=== PATIENT | male | born 1945 | race Caucasian/White ===

== ENCOUNTER 2020-02-08 15:00 | Outpatient (RCR) | payer MEDICARE, SELFPAY ==
[2019-12-02 11:31] VITALS: PULSE 58
--- NOTE | 2019-12-15 13:42 | PCCPR ---
Absent today, Bruce left message saying that he was more SOB today and would not be able to exercise.
--- NOTE | 2020-02-15 09:39 | PCCPR ---
Program is temporarily suspended due to COVID outbreak.
--- NOTE | 2020-02-29 09:47 | PCCPR ---
Spoke with Bruce who states he has been walking some and getting outdoors. States he is doing well. He had not checked his email regarding the home exercise guidelines that were sent. Asked him to check and call us back if he had not received them. Will follow up with him next week.
--- NOTE | 2020-03-07 11:05 | PCCPR ---
Check in completed with patient. Some activity but nothing consistent. No questions or concerns at this time. Will continue to follow weekly.
--- NOTE | 2020-03-14 13:43 | PCCPR ---
Weekly update call-Left message.
--- NOTE | 2020-03-21 13:52 | PCCPR ---
Weekly update call-Left message informing patient of continued closure through the month of March due to the extension of the senior living in place order.
--- NOTE | 2020-04-05 12:58 | PCCPR ---
Starting Bi-Weekly Calls. Have spoken with Bruce several times in regards to a bill he received. Helped him as much as I could-also encouraged him to call [facility] and his insurance. No other questions or concerns in regards to his health at this time.
--- NOTE | 2020-04-19 13:24 | PCCPR ---
Spoke with Bruce on biweekly call. Stated he spoke with his insurance who said he was paid up. He is going to wait to see if insurance will catch up. He did ask when he was going to open up. Explained we have a mtg nest week to discuss it. We will let him know tanner a plan to open.States he has heard other rehabs have opened.
--- NOTE | 2020-06-18 18:24 | PCCPR ---
Spoke with Bruce today. States he is having his second cataract eye surgery this 06/21. He hopes to return to rehab next week. Reminded him of needing a release to resume.
--- NOTE | 2020-06-29 13:18 | PCCPR ---
Spoke with Bruce today regarding his return to Cardiac rehab. Bruce stated that his left eye is swollen and he has an appointment today with the eye doctor. I informed him that if he is able to return next week that we would need a release and that if he is not able to return to notify us as soon as possible.
--- NOTE | 2020-07-09 15:38 | PCCPR ---
Bruce has not returned from eye surgery. Called him today and his eye is still swollen and he is unable to exercise. Bruce request that we discharge him from the program.
== END 2020-02-08 23:59 | disposition home or self-care (01) ==
LOC: ANHCPREHAB 15:00
PROVIDERS: PCP Family Medicine Adolescent Medicine; Visit Provider Nurse Practitioner Adult Health
DX: Z95.5 Presence of coronary angioplasty implant and graft (principal); I25.2 Old myocardial infarction
CPT/HCPCS: 93798

== ENCOUNTER 2020-05-30 15:00 | Outpatient (RCR) | payer MEDICARE, SELFPAY | END 2020-07-09 15:38 | disposition home or self-care (01) | LOC: ANHCPREHAB 15:00 | PROVIDERS: PCP Family Medicine Adolescent Medicine; Visit Provider Nurse Practitioner Adult Health | DX: Z95.5 Presence of coronary angioplasty implant and graft (principal); I25.2 Old myocardial infarction | CPT/HCPCS: 93798 ==

== ENCOUNTER → 2020-08-21 11:06 | Outpatient (CLI) | payer MEDICARE, SELFPAY ==
--- NOTE | ~2020-08-21 | XR_ITS ---
XR chest 2V DATE: 08/21/2020 11:32 INDICATION: Shortness of breath, hoarseness TECHNIQUE: PA and lateral views COMPARISON: 09/16/2019 2 view chest FINDINGS: There is bilateral hyperinflation. No pulmonary infiltrate or consolidation, pleural effusi on or pulmonary vascular congestion or pneumothorax. Normal heart size. Mild aortic unfolding. No hilar or mediastinal mass lesion or lymphadenopathy is s uggested. Diffuse idiopathic skeletal hyperostosis of the thoracic spine. IMPRESSION: Bilateral hyperinflation No active cardiac pulmonary disease or significant change since 09/16/2019 Diffuse idiopathic skeletal hyperostosis of the thoracic spine Reviewed, dictated and finalized at location B.
== END ==
PROVIDERS: PCP Family Medicine Adolescent Medicine; Visit Provider Physician Assistant
DX: R06.02 Shortness of breath (principal); R91.8 Other nonspecific abnormal finding of lung field
CPT/HCPCS: 71046

== ENCOUNTER 2021-08-02 09:22 | Observation (INO) | payer MEDICARE, SELFPAY ==
[2021-08-02] VITALS (15 sets, daily range): BP systolic 93–146; BP diastolic 46–72; PULSE 61–98; RESP 14–22; TEMP 36.1–39.4; O2SAT 89–96; BMI 27.7
--- NOTE | ~2021-08-02 | XR_ITS ---
EXAMINATION: XR chest 1V portable INDICATION: Shortness of breath TECHNIQUE: Portable AP chest at 0937 hours COMPARISON: 08/21/2020 FINDINGS: There are airspace opacities of the lung bases and left midlung zone. No pleural effusion o r pneumothorax is identified. The cardiomediastinal silhouette is normal. 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 IMPRESSION: 1. Airspace opacities of the lung bases and left midlung zone, consistent with atelectasis versus pne umonia. Reviewed, dictated and finalized at location B. IMPRESSION: 1. Airspace opacities of the lung bases and left midlung zone, consistent with atelectasis versus pneumonia.
--- NOTE | 2021-08-02 10:00 | ECG_ITS ---
Measurements Intervals [place] Rate: 92 P: 43 KS: 158 QRS: -66 QRSD: 122 T: 36 QT: 382 QTc: 473 Interpretive Statements SINUS RHYTHM LEFT AXIS DEVIATION RIGHT BUNDLE BRANCH BLOCK CONSIDER INFERIOR INFARCT, AGE INDETERMINATE BASELINE ARTIFACT- II, AVR, AVL, AVF, V2-V6 ABNORMAL ECG Electronically Signed On 08-02-2021 11:08:30 CDT by Tim Mary D.O.
[2021-08-02 10:12] LABS: Basophils Percent Auto 0.2 % (0.2-1.2); Eosinophils Percent Auto 0.1 % (0-4.4); Hematocrit 42.1 % (42.0-52.0); Hemoglobin 14.4 g/dL (14.0-18.0); Immature Granulocyte Absolute 0.05 K/mm3 (0.00-0.031); Immature Granulocyte Percent A 0.4 % (0-0.5); Lymphocytes Percent Auto 4.6 % (18.3-44.2); Mean Corpuscular HGB Conc 34.2 g/dl (32-36); Mean Corpuscular Hemoglobin 34.3 pg (26-34); Mean Corpuscular Volume 100.2 fl (80-100); Mean Platelet Volume 10.9 fl (7.4-10.4); Monocytes Absolute Auto 0.6 K/mm3 (0.1-0.6); Monocytes Percent Auto 4.9 % (2.6-8.5); Neutrophils Absolute Auto 11.8 K/mm3 (1.3-6.7); Neutrophils Percent Auto 89.8 % (45.5-73.1); Platelet Count Result 163 k/mm3 (150-375); Red Cell Distribution Width 11.9 % (11.5-14.5); White Blood Count 13.1 K/mm3 (4.5-10.0)
[2021-08-02 10:24] LABS: Anion Gap 8 mmol/L (8-16); Blood Urea Nitrogen 21 mg/dL (9-20); Calcium 9.1 mg/dL (8.4-10.2); Carbon Dioxide 24 mmol/L (22-30); Chloride 101 mmol/L (98-107); Estimated CRCL calculation 53 ml/min; Estimated Glomerular Filt Rate > 60; Glucose 109 mg/dL (65-110); Potassium 4.4 mmol/L (3.4-5.0); Sodium 133 mmol/L (137-145)
--- NOTE | 2021-08-02 12:40 | PC.NURSE ---
Patient was assisted up to ambulate with pulse oximeter. He was noted to patient's saturation decreased to 84% on room air while ambulating. EDP was made aware.
--- NOTE | 2021-08-02 12:49 | ED.GENADULT ---
HPI - General Adult General Chief complaint: Unspecified Stated complaint: 103 fever, weakness, sob Time Seen by Provider: 08/02/21 11:57 History of Present Illness HPI narrative: Patient is a 76-year-old male who presents ER with fever and fatigue. Reports he was first noted to have fever yesterday when he was at Dr. Jose. He had seen GI because he has been struggling with constipation and diarrhea. He was started on Linzess. While he is at GI he was noted to have a temperature of 101 ?F. Reports this morning his temperature was 103 ?F. No runny nose or sore throat or productive cough. Denies shortness of breath but has known COPD for which she does not wear oxygen. He has been having body aches for 2 days. No known sick contacts. He has been fully vaccinated against COVID-19. No loss of taste or smell. Related Data Home Medications Medication Instructions Recorded Confirmed albuterol sulfate [ProAir HFA] 2 puff INHALATION QID PRN 12/02/19 08/02/21 aspirin [Aspir-81] 81 mg PO DAILY 12/02/19 08/02/21 atorvastatin 80 mg PO HS 12/02/19 08/02/21 budesonide-formoterol [Symbicort] 2 puff INHALATION Q12H 12/02/19 08/02/21 bupropion HCl 150 mg PO BID 12/02/19 08/02/21 carvedilol [Coreg] 12.5 mg PO BID 12/02/19 08/02/21 docusate sodium 100 mg PO BID 12/02/19 08/02/21 esomeprazole magnesium [Nexium 40 mg PO DAILY 12/02/19 08/02/21 24HR] finasteride 5 mg PO DAILY 12/02/19 08/02/21 guaifenesin [Mucinex] 1,200 mg PO BID 12/02/19 08/02/21 losartan 50 mg PO DAILY 12/02/19 08/02/21 morphine [MS Contin] 60 mg PO Q12H 12/02/19 08/02/21 omega 1-qmg-kdh-fish oil [Fish Oil] 1 cap PO DAILY 12/02/19 08/02/21 sertraline [Zoloft] 50 mg PO DAILY 12/02/19 08/02/21 tamsulosin 0.4 mg PO DAILY 12/02/19 08/02/21 ticagrelor [Brilinta] 90 mg PO Q12H 12/02/19 08/02/21 tiotropium bromide [Spiriva 2 puff INHALATION DAILY 12/02/19 08/02/21 Respimat] trazodone 100 mg PO HS 12/02/19 08/02/21 acetaminophen [Tylenol] 650 mg PO ONCE PRN 08/02/21 08/02/21 nitroglycerin 0.4 mg SUBLINGUAL Q5M PRN 08/02/21 08/02/21 polyethylene glycol 3350 [Miralax] 17 g PO DAILY PRN 08/02/21 08/02/21 sulindac 200 mg BYMOUTH BID 08/02/21 08/02/21 Allergies Allergy/AdvReac Type Severity Reaction Status Date / Time No Known Allergies Allergy Unknown Verified 08/02/21 18:34 Review of Systems Review of Systems: All systems reviewed & are unremarkable except as noted in HPI and below Constitutional: Constitutional: Reports chills, Reports fatigue and Reports fever(s) ENT: Denies sinus pressure and Denies sore throat Cardiovascular: Cardiovascular: Denies chest pain, Denies syncope and Denies palpitations Respiratory: Respiratory: Denies cough, Denies dyspnea and Denies wheezing Gastrointestinal: Gastrointestinal: Denies abdominal pain, Reports constipation, Reports diarrhea, Denies nausea and Denies vomiting PMFSH Past Medical History Medical History (Updated 08/02/21 @ 23:15 by Castro Dickerson MD) BPH (benign prostatic hyperplasia) CHF (congestive heart failure), NYHA class I COPD (chronic obstructive pulmonary disease) Encounter for screening colonoscopy GERD (gastroesophageal reflux disease) HTN (hypertension) Surgical History Surgical History (Updated 08/02/21 @ 17:49 by Elenita Reinoso NP) H/O rotator cuff surgery History of colon resection History of coronary artery stent placement X2 History of mandibular surgery 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 Bone removed from right hip for reconstructive surgery S/P tonsillectomy and adenoidectomy Family History Family History Other No problems noted. Mother Diabetes mellitus Father COPD (chronic obstructive pulmonary disease) Colon cancer Sibling Colon cancer Lung cancer Acute myocardial infarction COPD (chronic obstructive pulmonary disease) Sibling COPD (chronic obstructive pulmonary disease) Sibling
[2021-08-02 14:09] LABS: EDCOVIDSCREEN Negative (Negative)
[2021-08-02] MEDS: SODIUM CHLORIDE 0.9% IV 1,000 ML 999 ML IV CONT (15:11)
[2021-08-02] MEDS: ACETAMINOPHEN 325 MG TABLET 650 MG PO (15:54)
[2021-08-02] MEDS: SODIUM CHLORIDE 0.9% IV 1,000 ML 125 ML IV CONT (15:55)
[2021-08-02 17:00] LABS: Lactic Acid Reflex 0.8 mmol/L (0.7-2.1)
--- NOTE | 2021-08-02 17:38 | PM.IMHP ---
H&P: HPI History of Present Illness Date/Time: 08/02/21 17:38 this is a 76-year-old male patient has a past medical history of coronary artery disease with 2 cardiac stents, CHF and COPD. The patient presented to the emergency room with a 103 fever today. Patient stated he is so short of breath and was has a cough. The patient was noted to have a fever of [address] rosales yesterday. The patient has been dealing with bouts of constipation with bouts of diarrhea and was started on Linzess to yesterday. The patient has been fully vaccinated for COVID-19. Rapid COVID test in the emergency room was found to be negative. His white count was noted to be 13.1. Neutrophil percentage 89.8. Chest x-ray was read as airspace opacities in lung bases and left mid lung zones, consistent with atelectasis versus pneumonia. The patient was given 1 L of IV fluids and started on azithromycin and Rocephin. The patient is being admitted to observation status on the date of service 08/02/2021 Chief Complaint: Fever Review of Systems Review of Systems: All systems reviewed & are unremarkable except as noted in HPI and below Constitutional: Constitutional: Reports as per HPI and Reports no additional constitutional complaints Eyes: Eyes: Reports as per HPI and Reports no additional eye complaints ENT: Reports system reviewed and no additional complaints, except as documented and Reports Normal hearing present Cardiovascular: Cardiovascular: Reports no additional cardiovascular complaints Respiratory: Respiratory: Reports no additional respiratory complaints and Reports no additional respiratory complaints Gastrointestinal: Gastrointestinal: Reports as per HPI and Reports no additional gastrointestinal complaints Musculoskeletal: Musculoskeletal: Reports no additional musculoskeletal complaints Integumentary/Breasts: Skin/Breast: Reports system reviewed and no additional complaints, except as docu and Reports as per HPI Neurologic: Reports system reviewed and no additional complaints, except as documented, Reports as per HPI and Reports Normal hearing present Psychiatric: Psychiatric: Reports no additional psychiatric complaints and Reports as per HPI Endocrine: Endocrine: Reports no additional endocrine complaints Hematologic/Lymphatic: Hematologic/Lymphatic: Reports no additional hematologic/lymphatic complaints Allergic/Immunologic: Allergic/Immunologic: Reports no additional allergic/immunologic complaints [facility] Past Medical History Medical History (Updated 08/02/21 @ 17:49 by Elenita Reinoso NP) BPH (benign prostatic hyperplasia) CHF (congestive heart failure), NYHA class I COPD (chronic obstructive pulmonary disease) Encounter for screening colonoscopy GERD (gastroesophageal reflux disease) HTN (hypertension) Surgical History Surgical History (Updated 08/02/21 @ 17:49 by Elenita Reinoso NP) H/O rotator cuff surgery History of colon resection History of coronary artery stent placement X2 History of mandibular surgery 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 Bone removed from right hip for reconstructive surgery S/P tonsillectomy and adenoidectomy Family History Family History Other No problems noted. Mother Diabetes mellitus Father COPD (chronic obstructive pulmonary disease) Colon cancer Sibling Colon cancer Lung cancer Acute myocardial infarction COPD (chronic obstructive pulmonary disease) Sibling COPD (chronic obstructive pulmonary disease) Sibling Congestive heart failure Social History Social History (Updated 08/02/21 @ 18:02 by Elenita Reinoso NP) Social History: The patient lives with his son and swiforrh-gj-ypd. Patient is a . The patient quit smoking in 2019. He also gave up alcohol many years ago. No marijuana or illicit drugs. The patient does not have a durable power employee benefits attorney for healthcare. The
--- NOTE | 2021-08-02 18:34 | ADMGEN ---
This patient, Russell Morse, was admitted to [facility] Surg Room [id number]. Patient/family oriented to hospital policies and general routines including ID bracelet, bed and alarms, visiting hours, pain management, procedures, bathroom and other care routines, personal items, smoking policy, room service/diet, and visiting hours. Information on how to activate the Rapid Response Team has been discussed. Patient/Family are encouraged to report perceived risks to care and to ask questions if they do not understand what they are told or what they should do.
[2021-08-02] MEDS: ALBUTEROL SULFATE NEB 2.5 MG/0.5 ML INH 5 MG INHALATION (21:01)
[2021-08-02] MEDS: LEVALBUTEROL NEB 1.25 MG/3 ML 0.63 MG INHALATION (21:01)
[2021-08-02] MEDS: ATORVASTATIN 40 MG TABLET 80 MG PO (21:20)
[2021-08-02] MEDS: carvediloL 12.5 MG TABLET PO (21:20)
[2021-08-02] MEDS: guaiFENesin 12 HR 600 MG TABCR 1200 MG PO (21:20)
[2021-08-02] MEDS: traZODone HCL 50 MG TABLET 100 MG PO (22:46)
[2021-08-02] MEDS: TICAGRELOR 90 MG TABLET PO (22:46)
[2021-08-02] MEDS: MORPHINE SULFATE (*CRX) 30 MG TABCR 60 MG PO (22:56)
[2021-08-03] VITALS (14 sets, daily range): BP systolic 115–145; BP diastolic 42–63; PULSE 60–74; RESP 16–20; TEMP 36.4–37.4; O2SAT 93–94
[2021-08-03] MEDS: ALBUTEROL SULFATE NEB 2.5 MG/0.5 ML INH 5 MG INHALATION ×2 (02:43→20:44)
[2021-08-03] MEDS: LEVALBUTEROL NEB 1.25 MG/3 ML 0.63 MG INHALATION ×2 (02:43→08:35)
[2021-08-03] MEDS: SODIUM CHLORIDE 0.9% IV 1,000 ML 125 ML IV CONT (03:32)
[2021-08-03 06:24] LABS: Basophils Percent Auto 0.1 % (0.2-1.2); Eosinophils Absolute Auto 0.1 K/mm3 (0-0.3); Eosinophils Percent Auto 1.1 % (0-4.4); Hematocrit 38.9 % (42.0-52.0); Hemoglobin 12.9 g/dL (14.0-18.0); Immature Granulocyte Absolute 0.05 K/mm3 (0.00-0.031); Immature Granulocyte Percent A 0.5 % (0-0.5); Lymphocytes Absolute Auto 1.35 K/mm3 (0.9-3.2); Lymphocytes Percent Auto 14.5 % (18.3-44.2); Mean Corpuscular HGB Conc 33.2 g/dl (32-36); Mean Corpuscular Hemoglobin 33.7 pg (26-34); Mean Corpuscular Volume 101.6 fl (80-100); Mean Platelet Volume 10.5 fl (7.4-10.4); Monocytes Absolute Auto 0.9 K/mm3 (0.1-0.6); Monocytes Percent Auto 9.9 % (2.6-8.5); Neutrophils Absolute Auto 6.9 K/mm3 (1.3-6.7); Neutrophils Percent Auto 73.9 % (45.5-73.1); Platelet Count Result 156 k/mm3 (150-375); Red Blood Count 3.83 M/mm3 (4.6-6.20); Red Cell Distribution Width 11.9 % (11.5-14.5); White Blood Count 9.3 K/mm3 (4.5-10.0)
[2021-08-03 06:39] LABS: Lactic Acid Reflex 0.9 mmol/L (0.7-2.1)
[2021-08-03 06:42] LABS: Alanine Aminotransferase 22 U/L (4-50); Albumin Level 3.6 g/dL (3.5-5.1); Alkaline Phosphatase 126 U/L (38-126); Anion Gap 8 mmol/L (8-16); Aspartate Amino Transferase 28 U/L (17-59); Bilirubin,Total 0.8 mg/dL (0.2-1.3); Blood Urea Nitrogen 17 mg/dL (9-20); Calcium 8.8 mg/dL (8.4-10.2); Carbon Dioxide 26 mmol/L (22-30); Chloride 102 mmol/L (98-107); Estimated CRCL calculation 64 ml/min; Estimated Glomerular Filt Rate > 60; Glucose 102 mg/dL (65-110); Magnesium 1.8 mg/dL (1.6-2.3); Potassium 4.2 mmol/L (3.4-5.0); Sodium 136 mmol/L (137-145)
[2021-08-03 07:22] LABS: Thyroid Stimulating Hormone Reflex 0.784 uIU/mL (0.465-4.68)
--- NOTE | 2021-08-03 09:23 | PM.IMPN ---
Progress Note: A&P Assessment and Plan (1) CAP (community acquired pneumonia): Code(s): J18.9 - Pneumonia, unspecified organism Status: Acute Assessment and Plan: Continue with azithromycin and Rocephin. Continue with nebulizer treatments. Sputum cultures and blood cultures are pending. Continue with guaifenesin. The patient does have leukocytosis. Patient's T-max was 103?. Follow cultures continue azithromycin and Rocephin (2) CHF (congestive heart failure), NYHA class I: Code(s): I50.9 - Heart failure, unspecified Status: Chronic Assessment and Plan: Continue with home medications. Patient's medication reconciliation not completed at this time. It looks like the patient may be on Coreg and losartan Will stop his IV fluids (3) BPH (benign prostatic hyperplasia): Code(s): N40.0 - Benign prostatic hyperplasia without lower urinary tract symptoms Status: Chronic Assessment and Plan: Continue with finasteride and tamsulosin (4) COPD (chronic obstructive pulmonary disease): Code(s): J44.9 - Chronic obstructive pulmonary disease, unspecified Status: Chronic Assessment and Plan: Continue with inhalers. (5) GERD (gastroesophageal reflux disease): Code(s): K21.9 - Gastro-esophageal reflux disease without esophagitis Status: Chronic Assessment and Plan: Continue with home medications. (6) HTN (hypertension): Code(s): I10 - Essential (primary) hypertension Status: Chronic Assessment and Plan: Continue with home medications. Looks like the patient is a and Coreg. (7) Acute respiratory failure with hypoxia: Code(s): J96.01 - Acute respiratory failure with hypoxia Status: Acute Assessment and Plan: Hypoxic to 86% with short ambulation in the ER Rapid COVID negative Chest x-ray with patchy opacities bilaterally (8) History of coronary artery stent placement: Code(s): Z95.5 - Presence of coronary angioplasty implant and graft Status: Inactive Assessment and Plan: Continue home medication (9) Hypoxia: Code(s): R09.02 - Hypoxemia Status: Acute (10) Constipation: Code(s): K59.00 - Constipation, unspecified Status: Acute Assessment and Plan: Chronic problem On Linzess Subjective Date/time seen: 08/03/21 09:23 Interval history: HPI:this is a 76-year-old male patient has a past medical history of coronary artery disease with 2 cardiac stents, CHF and COPD. The patient presented to the emergency room with a 103 fever today. Patient stated he is so short of breath and was has a cough. The patient was noted to have a fever of [address] rosales yesterday. The patient has been dealing with bouts of constipation with bouts of diarrhea and was started on Linzess to yesterday. The patient has been fully vaccinated for COVID-19. Rapid COVID test in the emergency room was found to be negative. His white count was noted to be 13.1. Neutrophil percentage 89.8. Chest x-ray was read as airspace opacities in lung bases and left mid lung zones, consistent with atelectasis versus pneumonia. The patient was given 1 L of IV fluids and started on azithromycin and Rocephin. The patient is being admitted to observation status on the date of service 08/02/2021 Interval history: No overnight events. He is feeling better. Still has cough. Denies shortness of breath. Oxygen level has been adequate without oxygen. No leg swelling Review of Systems Review of Systems: All systems reviewed & are unremarkable except as noted in HPI and below Exam Narrative: GENERAL: Well-appearing, well-nourished, and in no acute distress. HEAD: Normocephalic, atraumatic. CHEST: Crackles at the bases No respiratory distress. HEART: Regular rate and rhythm. Normal peripheral pulses. ABDOMEN: Soft, nontender, nondistended. EXTREMITIES: Normal range of motion. No edema.
[2021-08-03] MEDS: buPROPion HCL SR (12 HR) 150 MG TAB PO ×2 (09:26→16:28)
[2021-08-03] MEDS: MORPHINE SULFATE (*CRX) 30 MG TABCR 60 MG PO ×2 (09:26→22:01)
[2021-08-03] MEDS: DOCUSATE SODIUM 100 MG CAPSULE PO ×2 (09:27→16:27)
[2021-08-03] MEDS: ENOXAPARIN 40 MG/0.4 ML SYRINGE SUB-Q (09:27)
[2021-08-03] MEDS: ASPIRIN 81 MG ENTERIC TABLET PO (09:27)
[2021-08-03] MEDS: LOSARTAN POTASSIUM 50 MG TABLET PO (09:27)
[2021-08-03] MEDS: carvediloL 12.5 MG TABLET PO ×2 (09:27→21:56)
[2021-08-03] MEDS: TICAGRELOR 90 MG TABLET PO ×2 (09:27→21:56)
[2021-08-03] MEDS: FINASTERIDE 5 MG TABLET PO (09:27)
[2021-08-03] MEDS: TAMSULOSIN HCL 0.4 MG CAPSULE PO (09:28)
[2021-08-03] MEDS: OMEGA 3 POLYUNSAT FATTY ACIDS 1 GM CAP PO (09:28)
[2021-08-03] MEDS: SERTRALINE HCL 50 MG TABLET PO (09:28)
[2021-08-03] MEDS: PANTOPRAZOLE 40 MG TABLET PO (09:28)
[2021-08-03] MEDS: guaiFENesin 12 HR 600 MG TABCR 1200 MG PO ×2 (09:28→21:56)
--- NOTE | 2021-08-03 13:28 | PHAR ---
THE FOLLOWING HOME MEDS HAVE BEEN VERIFIED BY [facility] 72 MCG CAPSULES SULINDAC 200 MG TABLETS
[2021-08-03] MEDS: SULINDAC 200 MG 1 EACH BY MOUTH (16:28)
[2021-08-03] MEDS: ATORVASTATIN 40 MG TABLET 80 MG PO (21:56)
[2021-08-03] MEDS: traZODone HCL 50 MG TABLET 100 MG PO (21:56)
[2021-08-04 02:54] VITALS: PULSE 71; RESP 16
[2021-08-04] MEDS: ALBUTEROL SULFATE NEB 2.5 MG/0.5 ML INH 5 MG INHALATION ×2 (02:54→08:37)
[2021-08-04 06:00] VITALS: BP 138/55; PULSE 52; RESP 16; TEMP 37.1; O2SAT 94
[2021-08-04 06:32] LABS: Basophils Percent Auto 0.3 % (0.2-1.2); Eosinophils Absolute Auto 0.3 K/mm3 (0-0.3); Eosinophils Percent Auto 5.1 % (0-4.4); Hematocrit 35.4 % (42.0-52.0); Hemoglobin 11.9 g/dL (14.0-18.0); Immature Granulocyte Absolute 0.04 K/mm3 (0.00-0.031); Immature Granulocyte Percent A 0.7 % (0-0.5); Lymphocytes Percent Auto 21.9 % (18.3-44.2); Mean Corpuscular HGB Conc 33.6 g/dl (32-36); Mean Corpuscular Volume 101.1 fl (80-100); Mean Platelet Volume 10.3 fl (7.4-10.4); Monocytes Absolute Auto 0.8 K/mm3 (0.1-0.6); Monocytes Percent Auto 13.3 % (2.6-8.5); Neutrophils Absolute Auto 3.5 K/mm3 (1.3-6.7); Neutrophils Percent Auto 58.7 % (45.5-73.1); Platelet Count Result 149 k/mm3 (150-375); Red Cell Distribution Width 11.9 % (11.5-14.5); White Blood Count 5.9 K/mm3 (4.5-10.0)
[2021-08-04 07:16] LABS: Anion Gap 5 mmol/L (8-16); Blood Urea Nitrogen 14 mg/dL (9-20); Calcium 8.8 mg/dL (8.4-10.2); Carbon Dioxide 27 mmol/L (22-30); Chloride 104 mmol/L (98-107); Estimated CRCL calculation 72 ml/min; Estimated Glomerular Filt Rate > 60; Glucose 114 mg/dL (65-110); Potassium 4.1 mmol/L (3.4-5.0); Sodium 136 mmol/L (137-145)
[2021-08-04 08:00] VITALS: PULSE 62; RESP 20; O2SAT 91
[2021-08-04 08:39] VITALS: PULSE 73; RESP 20; O2SAT 91
[2021-08-04] MEDS: ENOXAPARIN 40 MG/0.4 ML SYRINGE SUB-Q (08:48)
[2021-08-04] MEDS: DOCUSATE SODIUM 100 MG CAPSULE PO (08:48)
[2021-08-04] MEDS: SERTRALINE HCL 50 MG TABLET PO (08:48)
[2021-08-04] MEDS: guaiFENesin 12 HR 600 MG TABCR 1200 MG PO (08:48)
[2021-08-04 08:49] VITALS: PULSE 62; RESP 20
[2021-08-04] MEDS: PANTOPRAZOLE 40 MG TABLET PO (08:49)
[2021-08-04] MEDS: TAMSULOSIN HCL 0.4 MG CAPSULE PO (08:49)
[2021-08-04] MEDS: TICAGRELOR 90 MG TABLET PO (08:49)
[2021-08-04] MEDS: FINASTERIDE 5 MG TABLET PO (08:49)
[2021-08-04] MEDS: LOSARTAN POTASSIUM 50 MG TABLET PO (08:49)
[2021-08-04] MEDS: ASPIRIN 81 MG ENTERIC TABLET PO (08:49)
[2021-08-04] MEDS: carvediloL 12.5 MG TABLET PO (08:49)
[2021-08-04] MEDS: buPROPion HCL SR (12 HR) 150 MG TAB PO (08:49)
[2021-08-04] MEDS: SULINDAC 200 MG 1 EACH BY MOUTH (08:52)
[2021-08-04] MEDS: OMEGA 3 POLYUNSAT FATTY ACIDS 1 GM CAP PO (08:52)
[2021-08-04] MEDS: MORPHINE SULFATE (*CRX) 30 MG TABCR 60 MG PO (08:55)
--- NOTE | 2021-08-04 10:13 | P.PNIM_ITS ---
Progress Note: A&P Assessment and Plan (1) CAP (community acquired pneumonia): Code(s): J18.9 - Pneumonia, unspecified organism Status: Acute Assessment and Plan: Continue with azithromycin and Rocephin. Continue with nebulizer treatments. Sputum cultures and blood cultures are pending. Continue with guaifenesin. The patient does have leukocytosis. Patient's T-max was 103?. Follow cultures continue azithromycin and Rocephin (2) CHF (congestive heart failure), NYHA class I: Code(s): I50.9 - Heart failure, unspecified Status: Chronic Assessment and Plan: Continue with home medications. Patient's medication reconciliation not completed at this time. It looks like the patient may be on Coreg and losartan Will stop his IV fluids (3) BPH (benign prostatic hyperplasia): Code(s): N40.0 - Benign prostatic hyperplasia without lower urinary tract symptoms Status: Chronic Assessment and Plan: Continue with finasteride and tamsulosin (4) COPD (chronic obstructive pulmonary disease): Code(s): J44.9 - Chronic obstructive pulmonary disease, unspecified Status: Chronic Assessment and Plan: Continue with inhalers. (5) GERD (gastroesophageal reflux disease): Code(s): K21.9 - Gastro-esophageal reflux disease without esophagitis Status: Chronic Assessment and Plan: Continue with home medications. (6) HTN (hypertension): Code(s): I10 - Essential (primary) hypertension Status: Chronic Assessment and Plan: Continue with home medications. Looks like the patient is a and Coreg. (7) Acute respiratory failure with hypoxia: Code(s): J96.01 - Acute respiratory failure with hypoxia Status: Acute Assessment and Plan: Hypoxic to 86% with short ambulation in the ER Rapid COVID negative Chest x-ray with patchy opacities bilaterally (8) History of coronary artery stent placement: Code(s): Z95.5 - Presence of coronary angioplasty implant and graft Status: Inactive Assessment and Plan: Continue home medication (9) Hypoxia: Code(s): R09.02 - Hypoxemia Status: Acute (10) Constipation: Code(s): K59.00 - Constipation, unspecified Status: Acute Assessment and Plan: Chronic problem On Linzess Subjective Date/time seen: 08/04/21 10:13 Interval history: HPI:this is a 76-year-old male patient has a past medical history of coronary artery disease with 2 cardiac stents, CHF and COPD. The patient presented to the emergency room with a 103 fever today. Patient stated he is so short of breath and was has a cough. The patient was noted to have a fever of [address] rosales yesterday. The patient has been dealing with bouts of constipation with bouts of diarrhea and was started on Linzess to yesterday. The patient has been fully vaccinated for COVID-19. Rapid COVID test in the emergency room was found to be negative. His white count was noted to be 13.1. Neutrophil percentage 89.8. Chest x-ray was read as airspace opacities in lung bases and left mid lung zones, consistent with atelectasis versus pneumonia. The patient was given 1 L of IV fluids and started on azithromycin and Rocephin. The patient is being admitted to observation status on the date of service 08/02/2021 Interval history: No overnight events. He is feeling better. Still has cough. Denies shortness of breath. Oxygen level has been adequate without oxygen. No leg swelling Review of Systems Review of Systems: All systems reviewed & are unremarkab
--- NOTE | 2021-08-04 11:40 | PM.DS ---
DS: Admitting Diagnosis Discharge Date 08/04/2021 Admitting Diagnosis Fever cough DS: Discharge Diagnosis Discharge Diagnosis (1) CAP (community acquired pneumonia): Code(s): J18.9 - Pneumonia, unspecified organism Status: Acute Assessment and Plan: Chest x-ray with airspace opacities of the lung bases and left mid lung zone consistent with atelectasis versus pneumonia Started on azithromycin and Rocephin Continued on nebulizer treatment. Sputum culture and blood culture were obtained. Blood culture remained no growth to date His leukocytosis on admission recovered His T-max was 103? on 08/02 afebrile for past 48 hours prior to discharge Will continue azithromycin course as an outpatient and switch Rocephin to cefdinir for 5 more days at the time of discharge (2) CHF (congestive heart failure), NYHA class I: Code(s): I50.9 - Heart failure, unspecified Status: Chronic Assessment and Plan: Continue with home medications. Resumed during the hospital stay (3) BPH (benign prostatic hyperplasia): Code(s): N40.0 - Benign prostatic hyperplasia without lower urinary tract symptoms Status: Chronic Assessment and Plan: Continue with finasteride and tamsulosin (4) COPD (chronic obstructive pulmonary disease): Code(s): J44.9 - Chronic obstructive pulmonary disease, unspecified Status: Chronic Assessment and Plan: Continue with inhalers. (5) GERD (gastroesophageal reflux disease): Code(s): K21.9 - Gastro-esophageal reflux disease without esophagitis Status: Chronic Assessment and Plan: Continue with home medications. (6) HTN (hypertension): Code(s): I10 - Essential (primary) hypertension Status: Chronic Assessment and Plan: Continue with home medications. Looks like the patient is a and Coreg. (7) Acute respiratory failure with hypoxia: Code(s): J96.01 - Acute respiratory failure with hypoxia Status: Acute Assessment and Plan: Hypoxic to 86% with short ambulation in the ER Rapid COVID negative Chest x-ray with patchy opacities bilaterally With treatment he recover from his hypoxia and required no oxygen by the time of discharge (8) History of coronary artery stent placement: Code(s): Z95.5 - Presence of coronary angioplasty implant and graft Status: Inactive Assessment and Plan: Continue home medication (9) Hypoxia: Code(s): R09.02 - Hypoxemia Status: Acute (10) Constipation: Code(s): K59.00 - Constipation, unspecified Status: Acute Assessment and Plan: Chronic problem On Ryne DS: Summary Hospital Course Hospital Course: See above Time Spent with Patient Time attestation: Total time spent providing and/or coordinating discharge services: 45 minutes Exam Narrative: GENERAL: Well-appearing, well-nourished, and in no acute distress. HEAD: Normocephalic, atraumatic. CHEST: Clear to auscultation bilaterally No respiratory distress. HEART: Regular rate and rhythm. Normal peripheral pulses. ABDOMEN: Soft, nontender, nondistended. EXTREMITIES: Normal range of motion. No edema. SKIN: Warm, dry, no rash. NEURO: Alert and oriented x3. PSYCH: Normal mood and affect. DS: Data Data Completed and Pending Labs on day of discharge: Labs from last 24 hours 08/04/21 08/04/21 06:26 06:26 WBC 5.9 RBC 3.50 L Hgb 11.9 L Hct 35.4 L MCV 101.1 H MCH 34.0 MCHC 33.6 RDW 11.9 Plt Count 149 L MPV 10.3 Immature Gran % (Auto) 0.7 H Neut % (Auto) 58.7 Lymph % (Auto) 21.9 [place] % (Auto) 13.3 H Eos % (Auto) 5.1 H Baso % (Auto) 0.3 Lymph # (Auto) 1.30 [place] # (Auto) 0.8 H Eos # (Auto) 0.3 Baso # (Auto) 0.0 Abs Immat Gran (auto) 0.04 H Absolute Neuts (auto) 3.5 Absolute Nucleated RBC 0.0 Nucleated RBC % 0.0 Sodium 136 L Potassium 4.1 Chloride 104 Carbon Dioxide 27 Anion Gap 5
[2021-08-04] MEDS: polyethylene glycoL 3350 17 GM POWD.PACK PO (11:56)
== END 2021-08-04 13:35 | disposition home or self-care (01) ==
LOC: ANHED 11:57 → ANH3MEDSUR 15:28
PROVIDERS: Emergency Medicine; Nurse Practitioner; Admitting Provider Family Medicine; Emergency Provider Emergency Medicine; PCP Family Medicine Adolescent Medicine; Visit Provider Internal Medicine
DX: J44.0 Chronic obstructive pulmonary disease with (acute) lower respiratory infection (principal); J18.9 Pneumonia, unspecified organism; J96.01 Acute respiratory failure with hypoxia; I11.0 Hypertensive heart disease with heart failure; I50.9 Heart failure, unspecified; K21.9 Gastro-esophageal reflux disease without esophagitis; N40.0 Benign prostatic hyperplasia without lower urinary tract symptoms; K59.00 Constipation, unspecified; Z95.5 Presence of coronary angioplasty implant and graft; Z87.891 Personal history of nicotine dependence; Z79.51 Long term (current) use of inhaled steroids; Z79.82 Long term (current) use of aspirin; Z79.01 Long term (current) use of anticoagulants; Z20.822 Contact with and (suspected) exposure to COVID-19
CPT/HCPCS: 36415; 71045; 80048; 80053; 82728; 83605; 83735; 84443; 85025; 87040; 87426; 93005; 94640; 96361; 96365; 96366; 96367; 96372; 96375; 97161; 97165; 99285; A9270; C9803; G0378; J0456; J0696; J1650; J7030

== ENCOUNTER 2021-09-02 22:55 | Emergency (ER) | payer MEDICARE, SELFPAY ==
--- NOTE | ~2021-09-02 | CT_ITS ---
EXAMINATION: CTA chest PE protocol DATE: 09/03/2021 00:53 INDICATION: Shortness of breath TECHNIQUE: Computed tomography angiography (CTA) of the chest was performed with 100 mL Omnipaque-350 intravenous contrast timed to evaluate the pulmonary arteries. Coronal maximum intensity projection 3D-reconstructions were created by the technologist. Automated exposure control and iterative reconst ruction technique were employed. Exam dose: 492.33 mGy-cm total exam DLP. COMPARISON: 09/02/2021 2 view chest FINDINGS: There is diagnostic contrast enhancement of the pulmonary arteries and no evidence of pulmo nary embolism. Normal heart size. No pericardial effusion. No thoracic aortic aneurysm or dissection. No hilar or mediastinal mass lesion or lymphadenopathy. There is minimal atelectasis at the lung bases. No pulmonary infiltrate or consolidation or pulmonary mass lesion is evident. There are numerous hypoattenuating lesions of the liver, likely numerous hepatic cysts. Small sliding hiatal hernia. Diffuse idiopathic skeletal hyperostosis of the thoracic spine. No suspicious osteolytic or osteoblas tic lesions are noted. IMPRESSION: No evidence of pulmonary embolism Reviewed, dictated and finalized at [facility]. Reviewed, dictated and finalized at location [facility].
--- NOTE | ~2021-09-02 | XR_ITS ---
EXAMINATION: XR chest 2V DATE: 09/02/2021 23:22 INDICATION: Shortness of breath. TECHNIQUE: Frontal and lateral views of the chest were obtained. COMPARISON: Chest single view 08/02/2021, CT abdomen and pelvis 02/16/2018 FINDINGS: There is mild atelectasis in left lower lung zone. No pleural effusion or pneumothorax. The heart size is normal. IMPRESSION: 1. Mild atelectasis in left lower lung zone. Reviewed, dictated and finalized at location [facility].
--- NOTE | 2021-09-02 23:00 | ECG_ITS ---
Measurements Intervals [place] Rate: 67 P: 67 ME: 225 QRS: -8 QRSD: 114 T: 51 QT: 405 QTc: 430 Interpretive Statements SINUS RHYTHM WITH SINUS ARRHYTHMIA WITH FIRST DEGREE AV BLOCK INCOMPLETE RIGHT BUNDLE BRANCH BLOCK BASELINE ARTIFACT- III ABNORMAL ECG Electronically Signed On 09-03-2021 6:49:28 CDT by Tim Mary D.O.
[2021-09-02 23:02] VITALS: BP 178/71; PULSE 78; RESP 20; TEMP 36.4; O2SAT 96
[2021-09-02 23:20] LABS: Basophils Percent Auto 0.1 % (0.2-1.2); Eosinophils Absolute Auto 0.1 K/mm3 (0-0.3); Eosinophils Percent Auto 1.2 % (0-4.4); Hematocrit 38.3 % (42.0-52.0); Hemoglobin 13.1 g/dL (14.0-18.0); Immature Granulocyte Absolute 0.03 K/mm3 (0.00-0.031); Immature Granulocyte Percent A 0.4 % (0-0.5); Immature Platelet Fraction Pct 5.8 % (0.9-11.2); Lymphocytes Absolute Auto 0.93 K/mm3 (0.9-3.2); Lymphocytes Percent Auto 12.7 % (18.3-44.2); Mean Corpuscular HGB Conc 34.2 g/dl (32-36); Mean Corpuscular Hemoglobin 34.2 pg (26-34); Mean Platelet Volume 10.6 fl (7.4-10.4); Monocytes Absolute Auto 0.7 K/mm3 (0.1-0.6); Neutrophils Absolute Auto 5.6 K/mm3 (1.3-6.7); Neutrophils Percent Auto 76.6 % (45.5-73.1); Platelet Count Result 140 k/mm3 (150-375); Red Blood Count 3.83 M/mm3 (4.6-6.20); Red Cell Distribution Width 11.7 % (11.5-14.5); White Blood Count 7.3 K/mm3 (4.5-10.0)
[2021-09-02 23:32] LABS: Anion Gap 6 mmol/L (8-16); Blood Urea Nitrogen 20 mg/dL (9-20); Calcium 8.6 mg/dL (8.4-10.2); Carbon Dioxide 25 mmol/L (22-30); Chloride 98 mmol/L (98-107); Estimated CRCL calculation 53 ml/min; Estimated Glomerular Filt Rate > 60; Glucose 121 mg/dL (65-110); Potassium 4.6 mmol/L (3.4-5.0); Sodium 129 mmol/L (137-145)
[2021-09-02 23:55] VITALS: PULSE 66; O2SAT 94
[2021-09-02 23:59] VITALS: BP 174/66; PULSE 61; O2SAT 96
[2021-09-03] VITALS (11 sets, daily range): BP systolic 112–160; BP diastolic 63–86; PULSE 60–88; RESP 12–18; O2SAT 93–97
[2021-09-03 00:19] LABS: NT Pro B Type Natriuretic Pept 263 pg/mL (5-100); Troponin I < 0.012 ng/mL (0.000-0.034)
[2021-09-03 01:02] LABS: INR 1.4; Prothrombin Time 17.1 Seconds (11.1-14.7)
[2021-09-03 01:03] LABS: Partial Thromboplastin Time 44.5 SECONDS (22.3-36.8)
--- NOTE | 2021-09-03 02:15 | ED.GENADULT ---
HPI - General Adult General Chief complaint: Shortness of Breath/Dyspnea Stated complaint: dyspnea Time Seen by Provider: 09/03/21 00:13 History of Present Illness HPI narrative: Patient 76-year-old gentleman presents the emergency department with chief complaint of shortness of breath. The patient reports he was recently in the hospital for pneumonia has completed his course of antibiotics. The patient reports today he an episode where he started coughing and was unable to catch his breath patient reports sometimes ride to the emergency department he is feeling much better this time. Patient states he is having no chest pain denies peripheral edema reports that he has a cough that is been nonproductive. Related Data Home Medications Medication Instructions Recorded Confirmed Brilinta 90 mg PO Q12H 12/02/19 08/02/21 Fish Oil 1 cap PO DAILY 12/02/19 08/02/21 Mucinex 1,200 mg PO BID 12/02/19 08/02/21 Spiriva Respimat 2 puff INHALATION DAILY 12/02/19 08/02/21 albuterol sulfate [ProAir HFA] 2 puff INHALATION QID PRN 12/02/19 08/02/21 aspirin [Aspir-81] 81 mg PO DAILY 12/02/19 08/02/21 atorvastatin 80 mg PO HS 12/02/19 08/02/21 budesonide-formoterol [Symbicort] 2 puff INHALATION Q12H 12/02/19 08/02/21 bupropion HCl 150 mg PO BID 12/02/19 08/02/21 carvedilol [Coreg] 12.5 mg PO BID 12/02/19 08/02/21 docusate sodium 100 mg PO BID 12/02/19 08/02/21 esomeprazole magnesium [Nexium 40 mg PO DAILY 12/02/19 08/02/21 24HR] finasteride 5 mg PO DAILY 12/02/19 08/02/21 losartan 50 mg PO DAILY 12/02/19 08/02/21 morphine [MS Contin] 60 mg PO Q12H 12/02/19 08/02/21 sertraline [Zoloft] 50 mg PO DAILY 12/02/19 08/02/21 tamsulosin 0.4 mg PO DAILY 12/02/19 08/02/21 trazodone 100 mg PO HS 12/02/19 08/02/21 acetaminophen [Tylenol] 650 mg PO ONCE PRN 08/02/21 08/02/21 nitroglycerin 0.4 mg SUBLINGUAL Q5M PRN 08/02/21 08/02/21 polyethylene glycol 3350 [Miralax] 17 g PO DAILY PRN 08/02/21 08/02/21 sulindac 200 mg BYMOUTH BID 08/02/21 08/02/21 Allergies Allergy/AdvReac Type Severity Reaction Status Date / Time No Known Allergies Allergy Unknown Verified 08/03/21 00:10 Review of Systems Review of Systems: A 10 system review of systems was completed on the patient and is negative except for what is stated in the HPI. Nursing and ancillary documentation was reviewed. [facility] Past Medical History Medical History BPH (benign prostatic hyperplasia) CHF (congestive heart failure), NYHA class I COPD (chronic obstructive pulmonary disease) Encounter for screening colonoscopy GERD (gastroesophageal reflux disease) HTN (hypertension) Surgical History Surgical History H/O rotator cuff surgery History of colon resection History of coronary artery stent placement X2 History of mandibular surgery 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 Bone removed from right hip for reconstructive surgery S/P tonsillectomy and adenoidectomy Family History Family History Other No problems noted. Mother Diabetes mellitus Father COPD (chronic obstructive pulmonary disease) Colon cancer Sibling Colon cancer Lung cancer Acute myocardial infarction COPD (chronic obstructive pulmonary disease) Sibling COPD (chronic obstructive pulmonary disease) Sibling Congestive heart failure Social History Social History Social History: The patient lives with his son and [id number]. Patient is a . The patient quit smoking in 2019. He also gave up alcohol many years ago. No marijuana or illicit drugs. The patient does not have a durable power energy attorney for healthcare. The patient desires to be a full code. 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 The patient has 5 biolog
== END 2021-09-03 03:10 | disposition home or self-care (01) ==
PROVIDERS: Emergency Medicine; Emergency Provider Emergency Medicine; PCP Family Medicine Adolescent Medicine
DX: R06.09 Other forms of dyspnea (principal); I50.9 Heart failure, unspecified; J44.9 Chronic obstructive pulmonary disease, unspecified; I11.0 Hypertensive heart disease with heart failure; Z87.891 Personal history of nicotine dependence; Z79.899 Other long term (current) drug therapy; Z87.19 Personal history of other diseases of the digestive system
CPT/HCPCS: 36415; 71046; 71275; 80048; 83880; 84484; 85025; 85055; 85610; 85730; 93005; 99284; Q9967

== ENCOUNTER 2021-09-03 11:16 | Emergency (ER) | payer MEDICARE, SELFPAY ==
[2021-09-03] VITALS (7 sets, daily range): BP systolic 109–160; BP diastolic 47–77; PULSE 86–101; RESP 18–25; TEMP 36.8; O2SAT 92–96
--- NOTE | ~2021-09-03 | XR_ITS ---
XR chest 1V portable DATE: 09/03/2021 11:53 INDICATION: Shortness of breath TECHNIQUE: Portable upright AP views on 09/03/2021 at 1143 hours COMPARISON: 09/03/2021 CT pulmonary scan FINDINGS: Normal heart size. There is mild aortic tortuosity. No hilar or mediastinal enlargement. There is mild atelectasis in the left lower lung. The lungs otherwise appear clear. No pleural effusi on or pulmonary vascular congestion or pneumothorax. There is a dextro scoliosis and degenerative spurring of the thoracic spine. IMPRESSION: Mild atelectasis in the left lower lung Reviewed, dictated and finalized at location [facility].
--- NOTE | 2021-09-03 11:37 | ECG_ITS ---
Measurements Intervals [place] Rate: 93 P: 66 IN: 220 QRS: 19 QRSD: 109 T: 51 QT: 370 QTc: 462 Interpretive Statements SINUS RHYTHM WITH FIRST DEGREE AV BLOCK INCOMPLETE RIGHT BUNDLE BRANCH BLOCK BORDERLINE R WAVE PROGRESSION, ANTERIOR LEADS BASELINE WANDER- AVR, AVL, AVF ABNORMAL ECG Electronically Signed On 09-03-2021 12:18:28 CDT by Tim Mary D.O.
[2021-09-03 12:06] LABS: Basophils Percent Auto 0.2 % (0.2-1.2); Hematocrit 41.2 % (42.0-52.0); Hemoglobin 14.3 g/dL (14.0-18.0); Immature Granulocyte Absolute 0.04 K/mm3 (0.00-0.031); Immature Granulocyte Percent A 0.4 % (0-0.5); Immature Platelet Fraction Pct 5.3 % (0.9-11.2); Lymphocytes Absolute Auto 0.52 K/mm3 (0.9-3.2); Lymphocytes Percent Auto 4.9 % (18.3-44.2); Mean Corpuscular HGB Conc 34.7 g/dl (32-36); Mean Corpuscular Hemoglobin 34.1 pg (26-34); Mean Corpuscular Volume 98.3 fl (80-100); Mean Platelet Volume 11.1 fl (7.4-10.4); Monocytes Absolute Auto 0.7 K/mm3 (0.1-0.6); Monocytes Percent Auto 6.9 % (2.6-8.5); Neutrophils Absolute Auto 9.4 K/mm3 (1.3-6.7); Neutrophils Percent Auto 87.6 % (45.5-73.1); Platelet Count Result 146 k/mm3 (150-375); Red Blood Count 4.19 M/mm3 (4.6-6.20); Red Cell Distribution Width 11.6 % (11.5-14.5); White Blood Count 10.7 K/mm3 (4.5-10.0)
[2021-09-03 12:12] LABS: INR 1.1; Prothrombin Time 14.5 Seconds (11.1-14.7)
[2021-09-03 12:13] LABS: Partial Thromboplastin Time 38.3 SECONDS (22.3-36.8)
[2021-09-03 12:25] LABS: Anion Gap 10 mmol/L (8-16); Blood Urea Nitrogen 16 mg/dL (9-20); Calcium 9.3 mg/dL (8.4-10.2); Carbon Dioxide 24 mmol/L (22-30); Chloride 98 mmol/L (98-107); Estimated CRCL calculation 64 ml/min; Estimated Glomerular Filt Rate > 60; Glucose 131 mg/dL (65-110); Magnesium 1.7 mg/dL (1.6-2.3); Potassium 3.9 mmol/L (3.4-5.0); Sodium 132 mmol/L (137-145)
[2021-09-03 12:36] LABS: Troponin I < 0.012 ng/mL (0.000-0.034)
--- NOTE | 2021-09-03 13:35 | ED.SOB ---
HPI - SOB/Dyspnea General Chief Complaint: Shortness of Breath/Dyspnea Stated Complaint: diff breathing Time Seen by Provider: 09/03/21 11:36 Source: patient Mode of arrival: EMS Limitations: no limitations History of Present Illness HPI Narrative: 76 year old male with PMH listed below complains of shortness of breath. Patient seen yesterday for same, sent home with prescription, did not yet pick it up. Shortness of breath started a few days ago, worse with exertion, worse with lying flat, taking all medications, including albuterol without relief. No chest pain, no increased leg swelling, no fever, speaking full sentences without difficulty. States recently diagnosed with pneumonia and finished antibiotics. MD elicited complaint: shortness of breath and cough Pertinent past history: COPD, congestive heart failure and pneumonia Context: recent illness and occurred during exertion Severity: moderate Exacerbating factors: lying flat, exertion and coughing Relieving factors: rest and bronchodilators Known history of: COPD and congestive heart failure Treatment prior to arrival: oxygen and bronchodilator Related Data Home Medications Medication Instructions Recorded Confirmed Fish Oil 1 cap PO DAILY 12/02/19 10/10/21 Mucinex 1,200 mg PO BID 12/02/19 10/10/21 Spiriva Respimat 2 puff INHALATION DAILY 12/02/19 10/10/21 albuterol sulfate [ProAir HFA] 2 puff INHALATION BID 12/02/19 10/10/21 aspirin [Aspir-81] 81 mg PO DAILY 12/02/19 10/10/21 atorvastatin 80 mg PO DAILY 12/02/19 10/10/21 budesonide-formoterol [Symbicort] 2 puff INHALATION Q12H 12/02/19 10/10/21 bupropion HCl 150 mg PO BID 12/02/19 10/10/21 carvedilol [Coreg] 12.5 mg PO BID 12/02/19 10/10/21 docusate sodium 100 mg PO BID 12/02/19 10/10/21 esomeprazole magnesium [Nexium 40 mg PO DAILY 12/02/19 10/10/21 24HR] finasteride 5 mg PO DAILY 12/02/19 10/10/21 losartan 50 mg PO DAILY 12/02/19 10/10/21 morphine [MS Contin] 60 mg PO Q12H 12/02/19 10/10/21 tamsulosin 0.4 mg PO DAILY 12/02/19 10/10/21 trazodone 100 mg PO HS 12/02/19 10/10/21 acetaminophen [Tylenol] 650 mg PO Q4H PRN 08/02/21 10/10/21 nitroglycerin 0.4 mg SUBLINGUAL Q5M PRN 08/02/21 10/10/21 polyethylene glycol 3350 [Miralax] 17 g PO DAILY PRN 08/02/21 10/10/21 sulindac 200 mg PO BID 08/02/21 10/10/21 Linzess 145 mcg PO DAILY 10/10/21 10/10/21 furosemide 40 mg PO DAILY 10/10/21 10/10/21 sertraline 50 mg PO DAILY 10/10/21 10/10/21 Allergies Allergy/AdvReac Type Severity Reaction Status Date / Time No Known Allergies Allergy Unknown Verified 10/10/21 20:39 Review of Systems Constitutional: Comments: afebrile, answering all questions without difficulty NAD Eyes: Eyes: Reports as per HPI, Denies no additional eye complaints, Denies change in vision and Denies photophobia ENT: Reports system reviewed and no additional complaints, except as documented, Reports as per HPI, Denies dysphagia, Denies vertigo, Denies dizziness, Denies epistaxis, Denies nasal congestion and Denies sore throat Cardiovascular: Cardiovascular: Reports as per HPI, Reports no additional cardiovascular complaints, Denies chest pain, Denies rapid heart rate, Denies radiating jaw, neck or arm pain and Denies slow heart rate Respiratory: Respiratory: Reports chest congestion, Reports cough and Reports dyspnea Gastrointestinal: Gastrointestinal: Denies abdominal pain, Denies bloating, Denies constipation, Denies heartburn, Denies diarrhea, Denies nausea and Denies vomiting Genitourinary: Genitourinary: Denies hematuria, Denies oliguria, Denies dysuria, Denies urinary frequency and Denies urinary incontinence Musculoskeletal: Musculoskeletal: Reports back pain and Reports myalgias Integumentary/Breasts: Skin/Breast: Denies pruritus, Denies erythema, Denies rash and Denies skin ulcer Neurologic: Comments: no confusion, no syncope, no focal weakness, no numbness Hematologic/Lymphatic: Comments: no easy bleeding, no easy bruising PMFSH Past Medical
[2021-09-03] MEDS: HYDROcodone/acetaminophen (*CRX) 7.5-325 MG TABLET 1 TAB PO (13:48)
[2021-09-03] MEDS: ALBUTEROL SULFATE NEB 2.5 MG/0.5 ML INH 5 MG INHALATION (14:01)
== END 2021-09-03 17:04 | disposition home or self-care (01) ==
PROVIDERS: Emergency Provider Emergency Medicine; PCP Family Medicine Adolescent Medicine
DX: J44.1 Chronic obstructive pulmonary disease with (acute) exacerbation (principal); I50.9 Heart failure, unspecified; I11.0 Hypertensive heart disease with heart failure; K21.9 Gastro-esophageal reflux disease without esophagitis; N40.0 Benign prostatic hyperplasia without lower urinary tract symptoms; Z79.82 Long term (current) use of aspirin; Z95.5 Presence of coronary angioplasty implant and graft; Z87.891 Personal history of nicotine dependence; I44.0 Atrioventricular block, first degree; I45.10 Unspecified right bundle-branch block; R94.31 Abnormal electrocardiogram [ECG] [EKG]
CPT/HCPCS: 36415; 71045; 80048; 83735; 84484; 85025; 85055; 85610; 85730; 93005; 94640; 99284; A9270

== ENCOUNTER 2021-09-10 13:26 | Observation (INO) | payer MEDICARE, SELFPAY ==
[2021-09-10] VITALS (44 sets, daily range): BP systolic 82–130; BP diastolic 34–87; PULSE 56–74; RESP 9–20; TEMP 36.3–36.4; O2SAT 88–96; BMI 30.6
--- NOTE | ~2021-09-10 | XR_ITS ---
EXAMINATION: XR chest 1V portable INDICATION: Shortness of breath TECHNIQUE: Portable AP chest at 1313 hours COMPARISON: 09/13/2021 FINDINGS: There is persistent but improved mild atelectasis of the lung bases. A developing opacity i s present in the right midlung zone. There is no pleural effusion or pneumothorax. The cardiomediasti nal silhouette is normal. IMPRESSION: 1. Airspace opacity of the right midlung zone, consistent with atelectasis versus pneumonia. Reviewed, dictated and finalized at location A. IMPRESSION: 1. Airspace opacity of the right midlung zone, consistent with atelectasis vers us pneumonia.
--- NOTE | ~2021-09-10 | CT_ITS ---
EXAMINATION: CT brain wo con INDICATION: Confusion COMPARISON: 04/12/2011 TECHNIQUE: Standard unenhanced head CT. The dose-length product (DLP) was 605.33 mGy-cm. The mA was a djusted according to patient size. Iterative reconstruction technique was employed. FINDINGS: There is no acute intraparenchymal hemorrhage. No evidence of mass lesion. No evidence of a cute infarction. There is mild periventricular and subcortical hypodensity probably related to small vessel ischemic disease. There is mild prominence of the sulci and ventricles related to cerebral atr ophy. Intracranial calcified cerebral atherosclerosis is noted. There are no extra-axial collections. There is no mass effect or midline shift. Changes in the globes are likely from ocular lens surgery. There is mild mucosal thickening of the paranasal sinuses. IMPRESSION: 1. No acute intracranial abnormality. 2. Age related findings. Reviewed, dictated and finalized at location A.
--- NOTE | ~2021-09-10 | XR_ITS ---
EXAMINATION: XR chest 1V portable DATE: 09/13/2021 09:06 INDICATION: Pneumonia. TECHNIQUE: A single frontal view of the chest was obtained on 2 radiographs. COMPARISON: Chest 2 views 09/10/2021, chest CT 09/03/2021 FINDINGS: The lungs are hyperexpanded, consistent with emphysema. There is mild atelectasis in the lo wer lung zones. No pleural effusion or pneumothorax. The heart size is normal. IMPRESSION: 1. Mild atelectasis in the lower lung zones. 2. Emphysema. Reviewed, dictated and finalized at location A.
--- NOTE | ~2021-09-10 | XR_ITS ---
XR chest 2V 09/10/2021 13:53 Indication: Weakness and cough Procedure: 2 view chest Comparison: Comparison to multiple prior studies sequentially, with oldest reviewed study dated 08/21. Findings: There is left lower lobe airspace disease. Heart size normal. No edema, significant effusio n or pneumothorax. Impression: 1: Left lower lobe airspace disease, atelectasis versus pneumonia. Reviewed, dictated and finalized at location B. Impression: 1: Left lower lobe airspace disease, atelectasis versus pneumonia.
--- NOTE | ~2021-09-10 | XR_ITS ---
XR abdomen obstructive series DATE: 09/14/2021 17:05 INDICATION: Severe constipation TECHNIQUE: Single portable upright AP view including mid and upper abdomen COMPARISON: 02/16/2018 CT abdomen pelvis 06/15/2017 small bowel series FINDINGS: There are numerous nondilated gas distended small bowel segments as well as a prominent adebayo unt of fecal material and gas in the colon. No intraperitoneal free air is evident. IMPRESSION: Limited examination Reviewed, dictated and finalized at Location A. Reviewed, dictated and finalized at location A. IMPRESSION: Limited examination
--- NOTE | 2021-09-10 13:29 | ECG_ITS ---
Measurements Intervals [place] Rate: 65 P: 47 NC: 166 QRS: 5 QRSD: 122 T: 11 QT: 426 QTc: 446 Interpretive Statements SINUS RHYTHM INCOMPLETE RIGHT BUNDLE BRANCH BLOCK BASELINE ARTIFACT- I, II, III, AVR, AVL, AVF BORDERLINE ECG Electronically Signed On 09-10-2021 14:11:20 CDT by Tim Mary D.O.
[2021-09-10 13:43] LABS: Basophils Percent Auto 0.2 % (0.2-1.2); Eosinophils Percent Auto 0.1 % (0-4.4); Hematocrit 36.8 % (42.0-52.0); Hemoglobin 12.4 g/dL (14.0-18.0); Immature Granulocyte Absolute 0.61 K/mm3 (0.00-0.031); Immature Granulocyte Percent A 3.4 % (0-0.5); Lymphocytes Absolute Auto 0.98 K/mm3 (0.9-3.2); Lymphocytes Percent Auto 5.4 % (18.3-44.2); Mean Corpuscular HGB Conc 33.7 g/dl (32-36); Mean Corpuscular Hemoglobin 34.3 pg (26-34); Mean Corpuscular Volume 101.9 fl (80-100); Mean Platelet Volume 10.2 fl (7.4-10.4); Monocytes Absolute Auto 1.1 K/mm3 (0.1-0.6); Monocytes Percent Auto 6.2 % (2.6-8.5); Neutrophils Absolute Auto 15.4 K/mm3 (1.3-6.7); Neutrophils Percent Auto 84.7 % (45.5-73.1); Platelet Count Result 156 k/mm3 (150-375); Red Blood Count 3.61 M/mm3 (4.6-6.20); Red Cell Distribution Width 12.1 % (11.5-14.5); White Blood Count 18.1 K/mm3 (4.5-10.0)
[2021-09-10 13:57] LABS: Alanine Aminotransferase 46 U/L (4-50); Albumin Level 3.4 g/dL (3.5-5.1); Alkaline Phosphatase 172 U/L (38-126); Anion Gap 8 mmol/L (8-16); Aspartate Amino Transferase 70 U/L (17-59); Bilirubin,Total 0.8 mg/dL (0.2-1.3); Blood Urea Nitrogen 20 mg/dL (9-20); Calcium 8.2 mg/dL (8.4-10.2); Carbon Dioxide 29 mmol/L (22-30); Chloride 95 mmol/L (98-107); Estimated CRCL calculation 46 ml/min; Estimated Glomerular Filt Rate 45; Glucose 108 mg/dL (65-110); Potassium 3.8 mmol/L (3.4-5.0); Sodium 132 mmol/L (137-145)
--- NOTE | 2021-09-10 17:10 | ED.GENADULT ---
HPI - General Adult General Chief complaint: Weakness Stated complaint: I'm clumsy, tremors, cough Time Seen by Provider: 09/10/21 15:45 History of Present Illness HPI narrative: Patient is a 76-year-old male who presents ER with weakness/fatigue. Reports he was seen here on 09/03/21. Had CT scan performed that ruled out PE and pneumonia. Continue to feel weak at home. He has been having cough that is nonproductive. His PCP wrote a prescription for doxycycline on 09/05 which she has been taking. Patient lives with his son who is also been feeling unwell. That son took a rapid Covid test today that was positive. Patient has been vaccinated. Denies fevers or chills. Reports some occasional jerks to his extremities. Related Data Home Medications Medication Instructions Recorded Confirmed Brilinta 90 mg PO Q12H 12/02/19 08/02/21 Fish Oil 1 cap PO DAILY 12/02/19 08/02/21 Mucinex 1,200 mg PO BID 12/02/19 08/02/21 Spiriva Respimat 2 puff INHALATION DAILY 12/02/19 08/02/21 albuterol sulfate [ProAir HFA] 2 puff INHALATION QID PRN 12/02/19 08/02/21 aspirin [Aspir-81] 81 mg PO DAILY 12/02/19 08/02/21 atorvastatin 80 mg PO HS 12/02/19 08/02/21 budesonide-formoterol [Symbicort] 2 puff INHALATION Q12H 12/02/19 08/02/21 bupropion HCl 150 mg PO BID 12/02/19 08/02/21 carvedilol [Coreg] 12.5 mg PO BID 12/02/19 08/02/21 docusate sodium 100 mg PO BID 12/02/19 08/02/21 esomeprazole magnesium [Nexium 40 mg PO DAILY 12/02/19 08/02/21 24HR] finasteride 5 mg PO DAILY 12/02/19 08/02/21 losartan 50 mg PO DAILY 12/02/19 08/02/21 morphine [MS Contin] 60 mg PO Q12H 12/02/19 08/02/21 sertraline [Zoloft] 50 mg PO DAILY 12/02/19 08/02/21 tamsulosin 0.4 mg PO DAILY 12/02/19 08/02/21 trazodone 100 mg PO HS 12/02/19 08/02/21 acetaminophen [Tylenol] 650 mg PO ONCE PRN 08/02/21 08/02/21 nitroglycerin 0.4 mg SUBLINGUAL Q5M PRN 08/02/21 08/02/21 polyethylene glycol 3350 [Miralax] 17 g PO DAILY PRN 08/02/21 08/02/21 sulindac 200 mg BYMOUTH BID 08/02/21 08/02/21 Allergies Allergy/AdvReac Type Severity Reaction Status Date / Time No Known Allergies Allergy Unknown Verified 09/03/21 11:40 Review of Systems Review of Systems: All systems reviewed & are unremarkable except as noted in HPI and below Constitutional: Constitutional: Denies chills, Reports fatigue, Denies fever(s) and Reports weakness ENT: Denies nasal congestion and Denies sore throat Cardiovascular: Cardiovascular: Denies chest pain, Denies rapid heart rate and Denies radiating jaw, neck or arm pain Respiratory: Respiratory: Reports cough, Denies dyspnea and Denies wheezing Gastrointestinal: Gastrointestinal: Denies abdominal pain, Denies diarrhea, Denies nausea and Denies vomiting PMFSH Past Medical History Medical History BPH (benign prostatic hyperplasia) CHF (congestive heart failure), NYHA class I COPD (chronic obstructive pulmonary disease) Encounter for screening colonoscopy GERD (gastroesophageal reflux disease) HTN (hypertension) Surgical History Surgical History H/O rotator cuff surgery History of colon resection History of coronary artery stent placement X2 History of mandibular surgery 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 Bone removed from right hip for reconstructive surgery S/P tonsillectomy and adenoidectomy Family History Family History Other No problems noted. Mother Diabetes mellitus Father COPD (chronic obstructive pulmonary disease) Colon cancer Sibling Colon cancer Lung cancer Acute myocardial infarction COPD (chronic obstructive pulmonary disease) Sibling COPD (chronic obstructive pulmonary disease) Sibling Congestive heart failure Social History Social History Social History: Th
--- NOTE | 2021-09-10 17:55 | PC.NURSE ---
MD Dickerson made aware of patient's soft BP's. Plan for fluids. Pt denies feeling dizzy or lightheaded, states he just feels tired. Pt joking with RN in good spirits.
[2021-09-10] MEDS: SODIUM CHLORIDE 0.9% IV 1,000 ML 999 ML IV CONT ×2 (18:09→19:44)
--- NOTE | 2021-09-10 18:12 | PC.NURSE ---
Pt's son brought him his iPad, cellphone, and two chargers from home that will be staying with patient during admission.
--- NOTE | 2021-09-10 18:26 | PC.NURSE ---
Placed on 2L NC for SpO2 88-91%
[2021-09-10] MEDS: SODIUM CHLORIDE 0.9% IV 1,000 ML 125 ML IV CONT (22:11)
[2021-09-10 23:25] LABS: Add Urine Microscopic? YES; Appearance Urine Cloudy (Clear); Bilirubin Urine Negative (Negative); Blood Urine Negative (Negative); Color Urine Amber (Yellow); Glucose Urine UA Negative (Negative); Ketones Urine Negative (Negative); Leukocyte Esterase Ur Negative LEU/UL (Negative); Nitrate Urine Negative (Negative); Protein Urine Negative (Negative); Specific Grav Ur 1.019 (1.001-1.035)
--- NOTE | 2021-09-10 23:36 | ADMGEN ---
This patient, Russell Morse, was admitted to [facility] Surg Room 330-01. Patient/family oriented to hospital policies and general routines including ID bracelet, bed and alarms, visiting hours, pain management, procedures, bathroom and other care routines, personal items, smoking policy, room service/diet, and visiting hours. Information on how to activate the Rapid Response Team has been discussed. Patient/Family are encouraged to report perceived risks to care and to ask questions if they do not understand what they are told or what they should do.
--- NOTE | 2021-09-10 23:48 | PM.IMHP ---
H&P: HPI History of Present Illness Date/Time: 09/10/21 23:48 Chief Complaint: Weakness cough Narrative: Patient is a 76-year-old male who presents ER with weakness/fatigue. He was recently seen a week ago on 09/03/2021. He continued to feel weak at home and has been coughing that is nonproductive. He has been taking doxycycline that his primary care prescribed. He lives with this son was also feeling unwell and apparently his son took a rapid COVID test today which tested positive. Patient himself reports that he has been vaccinated and denies any fever or chills. He reports that he has been feeling clumsy and having jerking movement in his upper ext which has worse since recently. He was hypotensive on arrival to the ER along with leukocytosis of 18,000 and SANDI with creatinine of 1.5. Chest x-ray showed left lower lobe airspace disease atelectasis versus pneumonia. He is admitted for further evaluation and management. Review of Systems Review of Systems: - CONSTITUTIONAL: Denies weight loss, fever and chills. Reports generalized weakness - HEENT: Denies changes in vision and hearing - RESPIRATORY: Reports SOB and cough. - CV: Denies palpitations and CP. - GI: Denies abdominal pain, nausea, vomiting and diarrhea. - : Denies dysuria and urinary frequency. - MSK: Denies myalgia and joint pain. - SKIN: Denies rash and pruritus. - NEUROLOGICAL: Denies headache and syncope. - PSYCHIATRIC: Denies recent changes in mood. Denies anxiety and depression. All systems reviewed & are unremarkable except as noted in HPI and below Constitutional: Constitutional: Reports fatigue and Reports weakness Neurologic: Reports weakness Endocrine: Endocrine: Reports fatigue PMFSH Past Medical History Medical History BPH (benign prostatic hyperplasia) CHF (congestive heart failure), NYHA class I COPD (chronic obstructive pulmonary disease) Encounter for screening colonoscopy GERD (gastroesophageal reflux disease) HTN (hypertension) Surgical History Surgical History H/O rotator cuff surgery History of colon resection History of coronary artery stent placement X2 History of mandibular surgery 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 Bone removed from right hip for reconstructive surgery S/P tonsillectomy and adenoidectomy Family History Family History Other No problems noted. Mother Diabetes mellitus Father COPD (chronic obstructive pulmonary disease) Colon cancer Sibling Colon cancer Lung cancer Acute myocardial infarction COPD (chronic obstructive pulmonary disease) Sibling COPD (chronic obstructive pulmonary disease) Sibling Congestive heart failure Social History Social History Social History: The patient lives with his son and [id number]. Patient is a . The patient quit smoking in 2019. He also gave up alcohol many years ago. No marijuana or illicit drugs. The patient does not have a durable power regulatory attorney for healthcare. The patient desires to be a full code. 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 The patient has 5 biological children and raise 2 other children. Smoking packs per day: 2 Smoking cigarettes per day: 40.0 Years smoked: 60 Smoking pack-years: 120.00 Smoking status: Former smoker Tobacco type: cigarettes Second hand tobacco smoke exposure: No Smoking end date: 09/16/17 Alcohol intake: never Substance use: never Last use: Last alcohol use 2010 Spiritual care concerns: No Meds Home Medications and Allergies Home Medications Medication Instructions Recorded Confirmed Type Fish Oil 1 cap PO DAILY 12/02/19 09/10/21 History Mucinex 1,200 mg PO B
[2021-09-11] VITALS (8 sets, daily range): BP systolic 140–141; BP diastolic 54–78; PULSE 89–93; RESP 18; TEMP 36.8–36.9; O2SAT 90–97
[2021-09-11] MEDS: SODIUM CHLORIDE 0.9% IV 1,000 ML 75 ML IV CONT (06:01)
[2021-09-11 06:25] LABS: Hematocrit 36.3 % (42.0-52.0); Hemoglobin 12.1 g/dL (14.0-18.0); Mean Corpuscular HGB Conc 33.3 g/dl (32-36); Mean Corpuscular Hemoglobin 33.2 pg (26-34); Mean Corpuscular Volume 99.7 fl (80-100); Mean Platelet Volume 9.9 fl (7.4-10.4); Platelet Count Result 163 k/mm3 (150-375); Red Blood Count 3.64 M/mm3 (4.6-6.20); Red Cell Distribution Width 12.1 % (11.5-14.5); White Blood Count 15.2 K/mm3 (4.5-10.0)
[2021-09-11 06:48] LABS: Anion Gap 7 mmol/L (8-16); Blood Urea Nitrogen 16 mg/dL (9-20); Calcium 8.1 mg/dL (8.4-10.2); Carbon Dioxide 27 mmol/L (22-30); Chloride 98 mmol/L (98-107); Estimated CRCL calculation 60 ml/min; Estimated Glomerular Filt Rate > 60; Glucose 99 mg/dL (65-110); Potassium 3.7 mmol/L (3.4-5.0); Sodium 132 mmol/L (137-145)
[2021-09-11 07:15] LABS: Atypical Lymphocytes Present; Band Neutrophils Percent 20 % (0-6); Monocytes Absolute Manual 0.15 K/mm3 (0.1-0.90); Monocytes Percent Manual 1 % (3-9); Neutrophils Absolute Manual 14.44 K/mm3 (1.3-6.7); Neutrophils Percent Manual 75 % (46-73); Platelet Estimate Adequate (Adequate); Total Cells Counted 100
[2021-09-11] MEDS: PANTOPRAZOLE 40 MG TABLET PO (08:34)
[2021-09-11] MEDS: MORPHINE SULFATE (*CRX) 60 MG TABCR PO ×2 (08:34→20:42)
[2021-09-11] MEDS: ASPIRIN 81 MG ENTERIC TABLET PO (08:35)
[2021-09-11] MEDS: FINASTERIDE 5 MG TABLET PO (08:39)
[2021-09-11] MEDS: buPROPion HCL SR (12 HR) 150 MG TAB PO ×2 (08:39→20:42)
[2021-09-11] MEDS: OMEGA 3 POLYUNSAT FATTY ACIDS 1 GM CAP PO (08:39)
[2021-09-11] MEDS: TAMSULOSIN HCL 0.4 MG CAPSULE PO (08:39)
[2021-09-11] MEDS: DOCUSATE SODIUM 100 MG CAPSULE PO ×2 (08:40→17:15)
[2021-09-11] MEDS: guaiFENesin 12 HR 600 MG TABCR 1200 MG PO ×2 (08:40→20:42)
[2021-09-11] MEDS: BENZONATATE 100 MG CAPSULE 200 MG PO (08:40)
[2021-09-11] MEDS: BUDESONIDE/FORMOTEROL (*SP) 160-4.5 MCG 6 GM INH 2 PUFF INHALATION ×2 (09:18→19:46)
--- NOTE | 2021-09-11 09:38 | PM.IMPN ---
Progress Note: A&P Assessment and Plan (1) Person under investigation for COVID-19: Code(s): Z20.822 - Contact with and (suspected) exposure to COVID-19 Status: Acute Assessment and Plan: Follow up COVID test (2) Acute kidney injury: Code(s): N17.9 - Acute kidney failure, unspecified Status: Acute Assessment and Plan: Likely prerenal versus ATN in the setting of acute ilness adn hypotension Creatinine is improving 1.5-> 1.1. Urinary output is adequate at close to 1.5 L of urine overnight. (3) Acute respiratory failure with hypoxia: Code(s): J96.01 - Acute respiratory failure with hypoxia Status: Acute Assessment and Plan: Acute hypoxic respiratory failure; patient presented with hypoxic respiratory failure and a saturation of 89% at presentation. The patient's respiratory status changes it improved today with saturations of 92-97% with only 0.5 L of oxygen via nasal cannula. On admission patient started empirically on ceftriaxone and is a true NV seen given presentation with shortness of breath, left lower lobe infiltrate, and leukocytosis with left shift. On admission had a WBC of 18.1, with a left shift of 84.7. On today's CBC the WBC has improved to 15.2,, with an hemoglobin of 12.1, and hematocrit of 36.3, and a platelet count of 163. COVID testing is pending at the time of this dictation. (4) Pneumonia: Code(s): J18.9 - Pneumonia, unspecified organism Status: Acute Assessment and Plan: Patient presents with productive cough, and generalized weakness PE on CBC there is significant leukocytosis with 18.1 WBC and no left shift. Chest x-ray reveals left lower lobe airspace disease, atelectasis versus pneumonia. Patient was appropriately started on empirical antibiotic with ceftriaxone and azithromycin. Blood cultures are unrevealing at the time of this dictation. COVID testing is pending. (5) CHF (congestive heart failure), NYHA class I: Code(s): I50.9 - Heart failure, unspecified Status: Chronic Assessment and Plan: History of congestive heart failure class 1. Patient is laying down comfortably, without any evidence of distress. There is no lower extremity edema. PAtient has coronary artery disease status post stents. Cardioprotective meds on hold due to hypotension. Continue SA (6) COPD (chronic obstructive pulmonary disease): Code(s): J44.9 - Chronic obstructive pulmonary disease, unspecified Status: Chronic Assessment and Plan: COPD is currently not in exacerbation. (7) BPH (benign prostatic hyperplasia): Code(s): N40.0 - Benign prostatic hyperplasia without lower urinary tract symptoms Status: Chronic Assessment and Plan: BPH: Currently there is no evidence of obstructive symptoms. Continue finasteride. (8) HTN (hypertension): Code(s): I10 - Essential (primary) hypertension Status: Chronic Assessment and Plan: Patient carries a diagnoses of chronic hypertension. At home he is on carvedilol 12.5 mg p.o. twice a day and losartan 50 mg p.o. daily. (9) GERD (gastroesophageal reflux disease): Code(s): K21.9 - Gastro-esophageal reflux disease without esophagitis Status: Chronic Assessment and Plan: give PPI (10) Hyponatremia: Code(s): E87.1 - Hypo-osmolality and hyponatremia Status: Acute Assessment and Plan: Mild and tolerated. Likely secondary to appropriate ADH release in the setting of hypotension and some element of SIADH due to acute lung disease. Monitor. Put antibiotics in saline solutions. Additional Plan # DVT prophylaxis Lovenox # Full code status Subjective Date/time seen: 09/11/21 09:38 Narrative: Patient is a 76-year-old male admitted with non prodctive cough, contact with a confirmed COVID case. He was hypotensive on arrival to the ER along with leukocytosis of 18,000 and SANDI with creatinine of 1.5. Chest x-ray
[2021-09-11 16:05] LABS: SARS-CoV-2 RNA PCR Positive (Negative)
[2021-09-11] MEDS: DEXAMETHASONE 4 MG TABLET PO (20:42)
[2021-09-11] MEDS: BARICITINIB 2 MG TABLET 4 MG PO (20:42)
[2021-09-11] MEDS: traZODone HCL 50 MG TABLET 100 MG PO (20:42)
[2021-09-11] MEDS: ATORVASTATIN 40 MG TABLET 80 MG PO (20:42)
[2021-09-12] VITALS (11 sets, daily range): BP systolic 139–161; BP diastolic 61–77; PULSE 58–82; RESP 16–18; TEMP 36.2–36.6; O2SAT 92–98
[2021-09-12 06:50] LABS: Basophils Percent Auto 0.1 % (0.2-1.2); Hematocrit 32.5 % (42.0-52.0); Hemoglobin 10.9 g/dL (14.0-18.0); Immature Granulocyte Absolute 0.11 K/mm3 (0.00-0.031); Immature Granulocyte Percent A 1.5 % (0-0.5); Lymphocytes Percent Auto 9.6 % (18.3-44.2); Mean Corpuscular HGB Conc 33.5 g/dl (32-36); Mean Corpuscular Hemoglobin 34.6 pg (26-34); Mean Corpuscular Volume 103.2 fl (80-100); Mean Platelet Volume 10.1 fl (7.4-10.4); Monocytes Absolute Auto 0.3 K/mm3 (0.1-0.6); Monocytes Percent Auto 3.7 % (2.6-8.5); Neutrophils Absolute Auto 6.2 K/mm3 (1.3-6.7); Neutrophils Percent Auto 85.1 % (45.5-73.1); Platelet Count Result 148 k/mm3 (150-375); Red Blood Count 3.15 M/mm3 (4.6-6.20); Red Cell Distribution Width 12.2 % (11.5-14.5); White Blood Count 7.3 K/mm3 (4.5-10.0)
[2021-09-12 06:58] LABS: Alanine Aminotransferase 38 U/L (4-50); Aspartate Amino Transferase 56 U/L (17-59); Estimated CRCL calculation 81 ml/min; Estimated Glomerular Filt Rate > 60
[2021-09-12 07:45] LABS: Vitamin B12 > 1000.0 pg/mL (239-931)
[2021-09-12] MEDS: BUDESONIDE/FORMOTEROL (*SP) 160-4.5 MCG 6 GM INH 2 PUFF INHALATION (08:34)
[2021-09-12] MEDS: guaiFENesin 12 HR 600 MG TABCR 1200 MG PO ×2 (09:01→20:47)
[2021-09-12] MEDS: DOCUSATE SODIUM 100 MG CAPSULE PO ×2 (09:01→17:37)
[2021-09-12] MEDS: buPROPion HCL SR (12 HR) 150 MG TAB PO ×2 (09:01→20:47)
[2021-09-12] MEDS: PANTOPRAZOLE 40 MG TABLET PO (09:01)
[2021-09-12] MEDS: ASPIRIN 81 MG ENTERIC TABLET PO (09:02)
[2021-09-12] MEDS: OMEGA 3 POLYUNSAT FATTY ACIDS 1 GM CAP PO (09:02)
[2021-09-12] MEDS: BARICITINIB 2 MG TABLET 4 MG PO (09:02)
[2021-09-12] MEDS: FINASTERIDE 5 MG TABLET PO (09:03)
[2021-09-12] MEDS: TAMSULOSIN HCL 0.4 MG CAPSULE PO (09:03)
[2021-09-12] MEDS: DEXAMETHASONE 4 MG TABLET PO (09:03)
[2021-09-12] MEDS: polyethylene glycoL 3350 17 GM POWD.PACK PO (09:04)
[2021-09-12] MEDS: MORPHINE SULFATE (*CRX) 60 MG TABCR PO ×2 (09:05→20:47)
--- NOTE | 2021-09-12 10:26 | PM.IMPN ---
Progress Note: A&P Assessment and Plan (1) Acute kidney injury: Code(s): N17.9 - Acute kidney failure, unspecified Status: Acute Assessment and Plan: Likely prerenal versus ATN in the setting of acute illness and hypotension Creatinine is improving 1.5-> 1.1->0.8. Urinary output is adequate at about 1.0 L of urine overnight. (2) Acute respiratory failure with hypoxia: Code(s): J96.01 - Acute respiratory failure with hypoxia Status: Acute Assessment and Plan: Acute hypoxic respiratory failure; patient presented with hypoxic respiratory failure and a saturation of 89% at presentation. The patient's respiratory status changes it improved today with saturations of 92-97% with only 0.5 L of oxygen via nasal cannula. On admission patient started empirically on ceftriaxone and is a true ID seen given presentation with shortness of breath, left lower lobe infiltrate, and leukocytosis with left shift. On admission had a WBC of 18.1, with a left shift of 84.7. On today's CBC the WBC has improved to 7.3,, with an hemoglobin of 10.9, and hematocrit of 32.5, and a platelet count of 148. COVID is positive and he was started on baricitinib and steroids. (3) Pneumonia: Code(s): J18.9 - Pneumonia, unspecified organism Status: Acute Assessment and Plan: Patient presents with productive cough, and generalized weakness PE on CBC there is significant leukocytosis with 18.1 WBC and no left shift. Chest x-ray reveals left lower lobe airspace disease, atelectasis versus pneumonia. Patient was appropriately started on empirical antibiotic with ceftriaxone and azithromycin. Blood cultures are unrevealing at the time of this dictation. COVID testing is positive. (4) CHF (congestive heart failure), NYHA class I: Code(s): I50.9 - Heart failure, unspecified Status: Chronic Assessment and Plan: History of congestive heart failure class 1. Patient is laying down comfortably, without any evidence of distress. There is no lower extremity edema. PAtient has coronary artery disease status post stents. Cardioprotective meds are restarted as blood pressure has improved to 152/73 this afternoon. (5) COPD (chronic obstructive pulmonary disease): Code(s): J44.9 - Chronic obstructive pulmonary disease, unspecified Status: Chronic Assessment and Plan: COPD is currently not in exacerbation. (6) BPH (benign prostatic hyperplasia): Code(s): N40.0 - Benign prostatic hyperplasia without lower urinary tract symptoms Status: Chronic Assessment and Plan: BPH: Currently there is no evidence of obstructive symptoms. Continue finasteride. (7) HTN (hypertension): Code(s): I10 - Essential (primary) hypertension Status: Chronic Assessment and Plan: Patient carries a diagnoses of chronic hypertension. At home he is on carvedilol 12.5 mg p.o. twice a day and losartan 50 mg p.o. daily. Resume home medications. (8) GERD (gastroesophageal reflux disease): Code(s): K21.9 - Gastro-esophageal reflux disease without esophagitis Status: Chronic Assessment and Plan: Continue PPI (9) Hyponatremia: Code(s): E87.1 - Hypo-osmolality and hyponatremia Status: Acute Assessment and Plan: Mild and tolerated. Likely secondary to appropriate ADH release in the setting of hypotension and some element of SIADH due to acute lung disease. Monitor. Put antibiotics in saline solutions. (10) COVID: Code(s): U07.1 - COVID-19 Status: Acute Assessment and Plan: Treatment as above, Send ferritin, LDH. Clinically appears to be mild disease. Patient is stable hemodynamically with only modest symptoms. Oxygen saturation is in the 92-97 range on room air. Home O2 evaluation prior to discharge. (11) Anemia: Code(s): D64.9 - Anemia, unspecified Status: Acute Assessment and Plan: Moderate anemia stable and w
[2021-09-12] MEDS: ATORVASTATIN 40 MG TABLET 80 MG PO (20:46)
[2021-09-12] MEDS: traZODone HCL 50 MG TABLET 100 MG PO (20:46)
[2021-09-12] MEDS: carvediloL 12.5 MG TABLET PO (20:47)
[2021-09-13] VITALS (12 sets, daily range): BP systolic 158–189; BP diastolic 68–89; PULSE 61–99; RESP 16–18; TEMP 36.4–36.8; O2SAT 91–95
[2021-09-13 06:28] LABS: Alanine Aminotransferase 48 U/L (4-50); Aspartate Amino Transferase 75 U/L (17-59); Basophils Absolute Auto 0.1 K/mm3 (0.0-0.1); Basophils Percent Auto 0.5 % (0.2-1.2); Estimated CRCL calculation 73 ml/min; Estimated Glomerular Filt Rate > 60; Hemoglobin 12.2 g/dL (14.0-18.0); Immature Granulocyte Absolute 0.19 K/mm3 (0.00-0.031); Immature Granulocyte Percent A 1.9 % (0-0.5); Lactate Dehydrogenase 467 U/L (313-618); Lymphocytes Absolute Auto 1.13 K/mm3 (0.9-3.2); Lymphocytes Percent Auto 11.5 % (18.3-44.2); Mean Corpuscular HGB Conc 33.9 g/dl (32-36); Mean Corpuscular Hemoglobin 33.2 pg (26-34); Mean Corpuscular Volume 98.1 fl (80-100); Mean Platelet Volume 9.9 fl (7.4-10.4); Monocytes Absolute Auto 0.5 K/mm3 (0.1-0.6); Monocytes Percent Auto 5.3 % (2.6-8.5); Neutrophils Percent Auto 80.8 % (45.5-73.1); Platelet Count Result 190 k/mm3 (150-375); Red Blood Count 3.67 M/mm3 (4.6-6.20); Red Cell Distribution Width 11.9 % (11.5-14.5); White Blood Count 9.8 K/mm3 (4.5-10.0)
[2021-09-13] MEDS: carvediloL 12.5 MG TABLET PO ×2 (06:31→20:43)
[2021-09-13] MEDS: LOSARTAN POTASSIUM 50 MG TABLET PO (06:31)
[2021-09-13 06:47] LABS: Iron 89 ug/dL (49-181)
[2021-09-13 06:57] LABS: Percent Iron Saturation 49 % (20-50)
[2021-09-13 07:48] LABS: Folic Acid 13.3 ng/mL (2.76->20); Vitamin B12 > 1000.0 pg/mL (239-931)
[2021-09-13] MEDS: ASPIRIN 81 MG ENTERIC TABLET PO (09:41)
[2021-09-13] MEDS: DEXAMETHASONE 4 MG TABLET PO (09:41)
[2021-09-13] MEDS: MORPHINE SULFATE (*CRX) 60 MG TABCR PO ×2 (09:42→20:43)
[2021-09-13] MEDS: buPROPion HCL SR (12 HR) 150 MG TAB PO ×2 (09:42→20:43)
[2021-09-13] MEDS: TAMSULOSIN HCL 0.4 MG CAPSULE PO (09:42)
[2021-09-13] MEDS: BARICITINIB 2 MG TABLET 4 MG PO (09:42)
[2021-09-13] MEDS: PANTOPRAZOLE 40 MG TABLET PO (09:42)
[2021-09-13] MEDS: polyethylene glycoL 3350 17 GM POWD.PACK PO (09:42)
[2021-09-13] MEDS: DOCUSATE SODIUM 100 MG CAPSULE PO ×2 (09:42→16:01)
[2021-09-13] MEDS: FINASTERIDE 5 MG TABLET PO (09:42)
[2021-09-13] MEDS: guaiFENesin 12 HR 600 MG TABCR 1200 MG PO ×2 (09:42→20:43)
[2021-09-13] MEDS: BUDESONIDE/FORMOTEROL (*SP) 160-4.5 MCG 6 GM INH 2 PUFF INHALATION ×2 (09:47→20:43)
--- NOTE | 2021-09-13 11:51 | PCRCNOTE ---
HOME O2 EVAL DONE, NO HOME O2 NEEDED AT THIS TIME.
[2021-09-13] MEDS: LACTULOSE 20 GM/30 ML UDC PO (13:49)
[2021-09-13] MEDS: ACETAMINOPHEN 325 MG TABLET 650 MG PO ×2 (13:53→21:48)
--- NOTE | 2021-09-13 17:00 | P.DS_ITS ---
DS: Discharge Diagnosis Discharge Diagnosis (1) Acute kidney injury: Code(s): N17.9 - Acute kidney failure, unspecified Status: Acute Assessment and Plan: Likely prerenal versus ATN in the setting of acute illness and hypotension Creatinine is improving 1.5-> 1.1->0.8. Urinary output is adequate at about 1.0 L of urine overnight. (2) Acute respiratory failure with hypoxia: Code(s): J96.01 - Acute respiratory failure with hypoxia Status: Acute Assessment and Plan: Acute hypoxic respiratory failure; patient presented with hypoxic respiratory failure and a saturation of 89% at presentation. The patient's respiratory status changes it improved today with saturations of 92-97% with only 0.5 L of oxygen via nasal cannula. On admission patient started empirically on ceftriaxone and is a true MN seen given presentation with shortness of breath, left lower lobe infiltrate, and leukocytosis with left shift. On admission had a WBC of 18.1, with a left shift of 84.7. On today's CBC the WBC has improved to 7.3,, with an hemoglobin of 10.9, and hematocrit of 32.5, and a platelet count of 148. COVID is positive and he was started on baricitinib and steroids. (3) Pneumonia: Code(s): J18.9 - Pneumonia, unspecified organism Status: Acute Assessment and Plan: Patient presents with productive cough, and generalized weakness PE on CBC there is significant leukocytosis with 18.1 WBC and no left shift. Chest x-ray reveals left lower lobe airspace disease, atelectasis versus pneumonia. Patient was appropriately started on empirical antibiotic with ceftriaxone and azithromycin. Blood cultures are unrevealing at the time of this dictation. COVID testing is positive. (4) CHF (congestive heart failure), NYHA class I: Code(s): I50.9 - Heart failure, unspecified Status: Chronic Assessment and Plan: History of congestive heart failure class 1. Patient is laying down comfortably, without any evidence of distress. There is no lower extremity edema. PAtient has coronary artery disease status post stents. Cardioprotective meds are restarted as blood pressure has improved to 152/73 this afternoon. (5) COPD (chronic obstructive pulmonary disease): Code(s): J44.9 - Chronic obstructive pulmonary disease, unspecified Status: Chronic Assessment and Plan: COPD is currently not in exacerbation. (6) BPH (benign prostatic hyperplasia): Code(s): N40.0 - Benign prostatic hyperplasia without lower urinary tract symptoms Status: Chronic Assessment and Plan: BPH: Currently there is no evidence of obstructive symptoms. Continue finasteride. (7) HTN (hypertension): Code(s): I10 - Essential (primary) hypertension Status: Chronic Assessment and Plan: Patient carries a diagnoses of chronic hypertension. At home he is on carvedilol 12.5 mg p.o. twice a day and losartan 50 mg p.o. daily. Resume home medications. (8) GERD (gastroesophageal reflux disease): Code(s): K21.9 - Gastro-esophageal reflux disease without esophagitis Status: Chronic Assessment and Plan: Continue PPI (9) Hyponatremia: Code(s): E87.1 - Hypo-osmolality and hyponatremia Status: Acute Assessment and Plan: Mild and tolerated. Likely secondary to appropriate ADH release in the setting of hypotension and some element of SIADH due to acute lung disease. Monitor. Put antibiotics in saline solutions. (10) COVID: Code(s): U07.1 - COVID-19 Status: Acute Assessment and Plan: Treatment as above, Send ferritin, LDH.
--- NOTE | 2021-09-13 19:32 | PM.IMPN ---
Progress Note: A&P Assessment and Plan (1) Acute kidney injury: Code(s): N17.9 - Acute kidney failure, unspecified Status: Acute Assessment and Plan: Likely prerenal versus ATN in the setting of acute illness and hypotension Creatinine is improving 1.5-> 1.1->0.8->0.9. Urinary output is adequate at about 1.0 L of urine overnight. (2) Acute respiratory failure with hypoxia: Code(s): J96.01 - Acute respiratory failure with hypoxia Status: Acute Assessment and Plan: Acute hypoxic respiratory failure; patient presented with hypoxic respiratory failure and a saturation of 89% at presentation. The patient's respiratory status changes it improved today with saturations of 92-97% with only 0.5 L of oxygen via nasal cannula. On admission patient started empirically on ceftriaxone and is a true MA seen given presentation with shortness of breath, left lower lobe infiltrate, and leukocytosis with left shift. On admission had a WBC of 18.1, with a left shift of 84.7. On today's CBC the WBC has improved to 7.3,, with an hemoglobin of 10.9, and hematocrit of 32.5, and a platelet count of 148. COVID is positive and he was started on baricitinib and steroids. Patient currently improving, with saturations in the 91-95% range on room air. (3) Pneumonia: Code(s): J18.9 - Pneumonia, unspecified organism Status: Acute Assessment and Plan: Patient presents with productive cough, and generalized weakness PE on CBC there is significant leukocytosis with 18.1 WBC and no left shift. Leukocytosis is improving with WBC of 9.8. Hemoglobin is stable at 12.2 hematocrit is 36 and platelet count is 190. Chest x-ray reveals left lower lobe airspace disease, atelectasis versus pneumonia. Encourage incentive spirometry. Patient was appropriately started on empirical antibiotic with ceftriaxone and azithromycin. Blood cultures are unrevealing at the time of this dictation. COVID testing is positive. Continue oral steroids and baricitinib. (4) CHF (congestive heart failure), NYHA class I: Code(s): I50.9 - Heart failure, unspecified Status: Chronic Assessment and Plan: History of congestive heart failure class 1. Patient is laying down comfortably, without any evidence of distress. There is no lower extremity edema. PAtient has coronary artery disease status post stents. Cardioprotective meds are restarted as blood pressure has improved to 152/73 this afternoon. (5) COPD (chronic obstructive pulmonary disease): Code(s): J44.9 - Chronic obstructive pulmonary disease, unspecified Status: Chronic Assessment and Plan: COPD is currently not in exacerbation. (6) BPH (benign prostatic hyperplasia): Code(s): N40.0 - Benign prostatic hyperplasia without lower urinary tract symptoms Status: Chronic Assessment and Plan: BPH: Currently there is no evidence of obstructive symptoms. Continue finasteride. (7) HTN (hypertension): Code(s): I10 - Essential (primary) hypertension Status: Chronic Assessment and Plan: Patient carries a diagnoses of chronic hypertension. At home he is on carvedilol 12.5 mg p.o. twice a day and losartan 50 mg p.o. daily. Resume home medications. (8) GERD (gastroesophageal reflux disease): Code(s): K21.9 - Gastro-esophageal reflux disease without esophagitis Status: Chronic Assessment and Plan: Continue PPI (9) Hyponatremia: Code(s): E87.1 - Hypo-osmolality and hyponatremia Status: Acute Assessment and Plan: Mild and tolerated.Repeat Na in AM. Likely secondary to appropriate ADH release in the setting of hypotension and some element of SIADH due to acute lung disease. Monitor. Put antibiotics in saline solutions. (10) COVID: Code(s): U07.1 - COVID-19 Status: Acute Assessment and Plan: Treatment as above, Send ferritin, LDH. Clinically appears to be mild disease. P
[2021-09-13] MEDS: OMEGA 3 POLYUNSAT FATTY ACIDS 1 GM CAP PO (20:43)
[2021-09-13] MEDS: traZODone HCL 50 MG TABLET 100 MG PO (20:43)
[2021-09-13] MEDS: ATORVASTATIN 40 MG TABLET 80 MG PO (20:44)
[2021-09-13] MEDS: hydrALAZINE HCL 20 MG/ML VIAL 10 MG IV PUSH (20:44)
[2021-09-13] MEDS: SALINE 0.65% NAS SOLN 44 ML BTL 1 SPRAY NASAL (21:48)
[2021-09-14] VITALS (11 sets, daily range): BP systolic 130–165; BP diastolic 62–73; PULSE 61–87; RESP 18–24; TEMP 36.1–36.8; O2SAT 89–96
[2021-09-14] MEDS: HYDROcodone/acetaminophen (*CRX) 5-325 MG TABLET 1 TAB PO (06:19)
[2021-09-14 06:35] LABS: Basophils Absolute Auto 0.1 K/mm3 (0.0-0.1); Hematocrit 41.6 % (42.0-52.0); Hemoglobin 13.7 g/dL (14.0-18.0); Immature Granulocyte Absolute 0.27 K/mm3 (0.00-0.031); Immature Granulocyte Percent A 2.2 % (0-0.5); Lymphocytes Absolute Auto 1.39 K/mm3 (0.9-3.2); Lymphocytes Percent Auto 11.5 % (18.3-44.2); Mean Corpuscular HGB Conc 32.9 g/dl (32-36); Mean Corpuscular Hemoglobin 33.5 pg (26-34); Mean Corpuscular Volume 101.7 fl (80-100); Mean Platelet Volume 9.9 fl (7.4-10.4); Monocytes Absolute Auto 0.5 K/mm3 (0.1-0.6); Neutrophils Absolute Auto 9.8 K/mm3 (1.3-6.7); Neutrophils Percent Auto 81.3 % (45.5-73.1); Platelet Count Result 219 k/mm3 (150-375); Red Blood Count 4.09 M/mm3 (4.6-6.20); White Blood Count 12.1 K/mm3 (4.5-10.0)
[2021-09-14 06:44] LABS: Anion Gap 10 mmol/L (8-16); Blood Urea Nitrogen 18 mg/dL (9-20); Calcium 9.1 mg/dL (8.4-10.2); Carbon Dioxide 30 mmol/L (22-30); Chloride 94 mmol/L (98-107); Estimated CRCL calculation 81 ml/min; Estimated Glomerular Filt Rate > 60; Glucose 91 mg/dL (65-110); Sodium 134 mmol/L (137-145)
[2021-09-14 06:56] LABS: Alanine Aminotransferase 63 U/L (4-50); Aspartate Amino Transferase 89 U/L (17-59); Estimated CRCL calculation 81 ml/min; Estimated Glomerular Filt Rate > 60
[2021-09-14] MEDS: ALBUTEROL SULFATE (*SP) INHALER 2 PUFF INHALATION (08:20)
[2021-09-14] MEDS: BUDESONIDE/FORMOTEROL (*SP) 160-4.5 MCG 6 GM INH 2 PUFF INHALATION ×2 (08:20→21:20)
--- NOTE | 2021-09-14 09:15 | P.PNIM_ITS ---
Progress Note: A&P Assessment and Plan (1) Acute kidney injury: Code(s): N17.9 - Acute kidney failure, unspecified Status: Acute Assessment and Plan: Likely prerenal versus ATN in the setting of acute illness and hypotension Creatinine is improving 1.5-> 1.1->0.8->0.9. Urinary output is adequate at about 1.0 L of urine overnight. (2) Acute respiratory failure with hypoxia: Code(s): J96.01 - Acute respiratory failure with hypoxia Status: Acute Assessment and Plan: Acute hypoxic respiratory failure; patient presented with hypoxic respiratory failure and a saturation of 89% at presentation. The patient's respiratory status changes it improved today with saturations of 92-97% with only 0.5 L of oxygen via nasal cannula. On admission patient started empirically on ceftriaxone and is a true PR seen given presentation with shortness of breath, left lower lobe infiltrate, and leukocytosis with left shift. On admission had a WBC of 18.1, with a left shift of 84.7. On today's CBC the WBC has improved to 7.3,, with an hemoglobin of 10.9, and hematocrit of 32.5, and a platelet count of 148. COVID is positive and he was started on baricitinib and steroids. Patient currently improving, with saturations in the 91-95% range on room air. (3) Pneumonia: Code(s): J18.9 - Pneumonia, unspecified organism Status: Acute Assessment and Plan: Patient presents with productive cough, and generalized weakness PE on CBC there is significant leukocytosis with 18.1 WBC and no left shift. Leukocytosis is im proving with WBC of 9.8. Hemoglobin is stable at 12.2 hematocrit is 36 and platelet count is 190. Chest x-ray reveals left lower lobe airspace disease, atelectasis versus pneumonia. Encourage incentive spirometry. Patient was appropriately started on empirical antibiotic with ceftriaxone and azithromycin. Blood cultures are unrevealing at the time of this dictation. COVID testing is positive. Continue oral steroids and baricitinib. (4) CHF (congestive heart failure), NYHA class I: Code(s): I50.9 - Heart failure, unspecified Status: Chronic Assessment and Plan: History of congestive heart failure class 1. Patient is laying down comfo rtably, without any evidence of distress. There is no lower extremity edema. PAtient has coronary artery disease status post stents. Cardioprotective meds are restarted as blood pressure has improved to 152/73 this afternoon. (5) COPD (chronic obstructive pulmonary disease): Code(s): J44.9 - Chronic obstructive pulmonary disease, unspecified Status: Chronic Assessment and Plan: COPD is currently not in exacerbation. (6) BPH (benign prostatic hyperplasia): Code(s): N40.0 - Benign prostatic hyperplasia without lower urinary tract symptoms Status: Chronic Assessment and Plan: BPH: Currently there is no evidence of obstructive symptoms. Continue finasteride. (7) HTN (hypertension): Code(s): I10 - Essential (primary) hypertension Status: Chronic Assessment and Plan: Patient carries a diagnoses of chronic hypertension. At home he is on carvedilol 12.5 mg p.o. twice a day and losartan 50 mg p.o. daily. Resume home medications. (8) GERD (gastroesophageal reflux disease): Code(s): K21.9 - Gastro-esophageal reflux disease without esophagitis Status: Chronic Assessment and Plan: Continue PPI (9) Hyponatremia: Code(s): E87.1 - Hypo-osmolality and hyponatremia Status: Acute Assessment and Plan: Mild and tolerated.Repeat Na in AM. Likely secondary to appropriate ADH release i
[2021-09-14] MEDS: MAGNESIUM HYDROXIDE SUSP 30 ML UDC PO (09:53)
[2021-09-14] MEDS: BARICITINIB 2 MG TABLET 4 MG PO (09:57)
[2021-09-14] MEDS: PANTOPRAZOLE 40 MG TABLET PO (09:57)
[2021-09-14] MEDS: guaiFENesin 12 HR 600 MG TABCR 1200 MG PO ×2 (09:57→21:08)
[2021-09-14] MEDS: DEXAMETHASONE 4 MG TABLET PO (09:57)
[2021-09-14] MEDS: LOSARTAN POTASSIUM 50 MG TABLET PO (09:58)
[2021-09-14] MEDS: DOCUSATE SODIUM 100 MG CAPSULE PO ×2 (09:58→16:17)
[2021-09-14] MEDS: buPROPion HCL SR (12 HR) 150 MG TAB PO ×2 (09:58→21:19)
[2021-09-14] MEDS: MORPHINE SULFATE (*CRX) 60 MG TABCR PO ×2 (09:58→21:08)
[2021-09-14] MEDS: carvediloL 12.5 MG TABLET PO ×2 (09:58→21:09)
[2021-09-14] MEDS: polyethylene glycoL 3350 17 GM POWD.PACK PO (09:59)
[2021-09-14] MEDS: ASPIRIN 81 MG ENTERIC TABLET PO (10:01)
[2021-09-14] MEDS: ACETAMINOPHEN 325 MG TABLET 650 MG PO (16:17)
[2021-09-14] MEDS: traZODone HCL 50 MG TABLET 100 MG PO (21:09)
[2021-09-14] MEDS: OMEGA 3 POLYUNSAT FATTY ACIDS 1 GM CAP PO (21:09)
[2021-09-14] MEDS: ATORVASTATIN 40 MG TABLET 80 MG PO (21:09)
[2021-09-15] VITALS (17 sets, daily range): BP systolic 113–144; BP diastolic 55–83; PULSE 58–86; RESP 18–20; TEMP 35.8–36.7; O2SAT 86–96
[2021-09-15 06:29] LABS: Alanine Aminotransferase 49 U/L (4-50); Aspartate Amino Transferase 67 U/L (17-59); Estimated CRCL calculation 73 ml/min; Estimated Glomerular Filt Rate > 60
[2021-09-15 06:33] LABS: Basophils Percent Auto 0.5 % (0.2-1.2); Hematocrit 38.9 % (42.0-52.0); Hemoglobin 13.1 g/dL (14.0-18.0); Immature Granulocyte Absolute 0.33 K/mm3 (0.00-0.031); Immature Granulocyte Percent A 3.9 % (0-0.5); Lymphocytes Absolute Auto 1.13 K/mm3 (0.9-3.2); Lymphocytes Percent Auto 13.4 % (18.3-44.2); Mean Corpuscular HGB Conc 33.7 g/dl (32-36); Mean Corpuscular Hemoglobin 33.7 pg (26-34); Mean Platelet Volume 10.6 fl (7.4-10.4); Monocytes Absolute Auto 0.4 K/mm3 (0.1-0.6); Monocytes Percent Auto 4.6 % (2.6-8.5); Neutrophils Absolute Auto 6.6 K/mm3 (1.3-6.7); Neutrophils Percent Auto 77.6 % (45.5-73.1); Platelet Count Result 207 k/mm3 (150-375); Red Blood Count 3.89 M/mm3 (4.6-6.20); Red Cell Distribution Width 12.4 % (11.5-14.5); White Blood Count 8.5 K/mm3 (4.5-10.0)
--- NOTE | 2021-09-15 08:21 | PM.IMPN ---
Progress Note: A&P Assessment and Plan (1) Acute kidney injury: Code(s): N17.9 - Acute kidney failure, unspecified Status: Acute Assessment and Plan: Likely prerenal versus ATN in the setting of acute illness and hypotension Creatinine is improving 1.5-> 1.1->0.8->0.9. Urinary output is adequate at about 2.35 L of urine overnight. (2) Acute respiratory failure with hypoxia: Code(s): J96.01 - Acute respiratory failure with hypoxia Status: Acute Assessment and Plan: Acute hypoxic respiratory failure; patient presented with hypoxic respiratory failure and a saturation of 89% at presentation. The patient's respiratory status changes it improved today with saturations of 92-97% with only 0.5 L of oxygen via nasal cannula. On admission patient started empirically on ceftriaxone and is a true DC seen given presentation with shortness of breath, left lower lobe infiltrate, and leukocytosis with left shift. On admission had a WBC of 18.1, with a left shift of 84.7. On today's CBC the WBC has improved to 7.3,, with an hemoglobin of 10.9, and hematocrit of 32.5, and a platelet count of 148. COVID is positive and he was started on baricitinib and steroids. Patient was initially improving, with saturations in the 91-95% range on room air. Today the patient is mildly hypoxic and dipped to 86% on room air. Encourage incentive spirometry. Obtain stat chest x-ray. Repeat home oxygen evaluation. (3) Pneumonia: Code(s): J18.9 - Pneumonia, unspecified organism Status: Acute Assessment and Plan: Patient presents with productive cough, and generalized weakness PE on CBC there is significant leukocytosis with 18.1 WBC and no left shift. Leukocytosis is improving with WBC of 9.8. Hemoglobin is stable at 12.2 hematocrit is 36 and platelet count is 190. Chest x-ray reveals left lower lobe airspace disease, atelectasis versus pneumonia. Encourage incentive spirometry. Patient was appropriately started on empirical antibiotic with ceftriaxone and azithromycin. Blood cultures are unrevealing at the time of this dictation. COVID testing is positive. Continue oral steroids and baricitinib. (4) CHF (congestive heart failure), NYHA class I: Code(s): I50.9 - Heart failure, unspecified Status: Chronic Assessment and Plan: History of congestive heart failure class 1. Patient is laying down comfortably, without any evidence of distress. There is no lower extremity edema. PAtient has coronary artery disease status post stents. Cardioprotective meds are restarted as blood pressure has improved to 152/73 this afternoon. (5) COPD (chronic obstructive pulmonary disease): Code(s): J44.9 - Chronic obstructive pulmonary disease, unspecified Status: Chronic Assessment and Plan: COPD is currently not in exacerbation. (6) BPH (benign prostatic hyperplasia): Code(s): N40.0 - Benign prostatic hyperplasia without lower urinary tract symptoms Status: Chronic Assessment and Plan: BPH: Currently there is no evidence of obstructive symptoms. Continue finasteride. (7) HTN (hypertension): Code(s): I10 - Essential (primary) hypertension Status: Chronic Assessment and Plan: Patient carries a diagnoses of chronic hypertension. At home he is on carvedilol 12.5 mg p.o. twice a day and losartan 50 mg p.o. daily. Continue home medications. (8) GERD (gastroesophageal reflux disease): Code(s): K21.9 - Gastro-esophageal reflux disease without esophagitis Status: Chronic Assessment and Plan: Continue PPI (9) Hyponatremia: Code(s): E87.1 - Hypo-osmolality and hyponatremia Status: Acute Assessment and Plan: Mild and tolerated at 134.Repeat Na in AM. Likely secondary to appropriate ADH release in the setting of hypotension and some element of SIADH due to acute lung disease. Monitor. Put antibiotics in saline solutions. (10)
[2021-09-15] MEDS: LOSARTAN POTASSIUM 50 MG TABLET PO (08:35)
[2021-09-15] MEDS: BARICITINIB 2 MG TABLET 4 MG PO (08:35)
[2021-09-15] MEDS: FINASTERIDE 5 MG TABLET PO (08:35)
[2021-09-15] MEDS: polyethylene glycoL 3350 17 GM POWD.PACK PO (08:35)
[2021-09-15] MEDS: buPROPion HCL SR (12 HR) 150 MG TAB PO ×2 (08:35→20:08)
[2021-09-15] MEDS: DEXAMETHASONE 4 MG TABLET PO (08:35)
[2021-09-15] MEDS: ASPIRIN 81 MG ENTERIC TABLET PO (08:35)
[2021-09-15] MEDS: PANTOPRAZOLE 40 MG TABLET PO (08:35)
[2021-09-15] MEDS: guaiFENesin 12 HR 600 MG TABCR 1200 MG PO ×2 (08:35→20:07)
[2021-09-15] MEDS: TAMSULOSIN HCL 0.4 MG CAPSULE PO (08:35)
[2021-09-15] MEDS: MORPHINE SULFATE (*CRX) 60 MG TABCR PO ×2 (08:35→20:08)
[2021-09-15] MEDS: DOCUSATE SODIUM 100 MG CAPSULE PO ×2 (08:35→18:06)
[2021-09-15] MEDS: carvediloL 12.5 MG TABLET PO ×2 (08:36→20:08)
[2021-09-15] MEDS: BUDESONIDE/FORMOTEROL (*SP) 160-4.5 MCG 6 GM INH 2 PUFF INHALATION ×3 (09:34→21:14)
--- NOTE | 2021-09-15 13:33 | PCRCNOTE ---
Pt requires 2 L Home 02. Care [facility] called.
--- NOTE | 2021-09-15 14:52 | HOMEO2EVAL ---
Evaluation was performed at [facility] Home Oxygen Evaluation RC: Home Oxygen (O2) Evaluation Start: 09/15/21 12:28 Freq: ONCE Status: Active Protocol: RPE Activity Type Activity Date Activity User E-Sign Co-Sign Detail Recorded Client Recorded Date Recorded By Document 09/15/21 12:48 CMB [email or web address] 09/15/21 12:54 CMB Document 09/15/21 13:10 CMB [email or web address] 09/15/21 13:19 CMB Document 09/15/21 13:15 CMB [email or web address] 09/15/21 13:21 CMB 09/15/21 09/15/21 09/15/21 12:48 13:10 13:15 Home O2 Evaluation Test Phase Resting Exercise Exercise Oxygen Delivery Room Air Room Air Nasal Cannula Fraction of Inspired Oxygen (%) 28 Pulse Oximetry (90-100 %) 93 86 L 93 Pulse Rate (60-100 beats/min) 77 Activity Tolerance Fair Fair Rating of Perceived Dyspnea (PD) +2 Mild, Some +2 Mild, Some Difficulty, Difficulty, Noticeable to Noticeable to the Observer the Observer Rate of Perceived Exertion (PE) 11 Fairly light 10 Ambulation Distance (feet) 10 15 Home Oxygen Evaluation Comments pt complaining Pt requires 2 L of being tired home 02. [facility], I [facility] called. on 1 L of 02, he reached 87% and satyed there Treatment Charges O2 Evaluation - Inpatient
--- NOTE | 2021-09-15 15:00 | PM.EVENT ---
Event Note Event Note Event Note: Patient was examined at the bedside. He is stable and afebrile. Temperature is 97.3?F, pulse is 77, respiratory rate is 18 to 20, and saturation dropped to 86% on room air. On auscultation there are bibasilar rales. Chest x-ray reveals airspace opacity of the right midlung zone, consistent with atelectasis versus pneumonia. Apparently patient has been being treated for COVID and has needed 0.5 L of oxygen or less throughout his admission. Given increased oxygen requirement, we are holding the discharge, to observe the patient overnight. Encourage incentive spirometry. Continue oxygen supplementation at 2 L with rest and exercise per home O2 evaluation.
[2021-09-15] MEDS: ATORVASTATIN 40 MG TABLET 80 MG PO (20:08)
[2021-09-15] MEDS: traZODone HCL 50 MG TABLET 100 MG PO (20:08)
[2021-09-15] MEDS: OMEGA 3 POLYUNSAT FATTY ACIDS 1 GM CAP PO (20:09)
[2021-09-15] MEDS: ALBUTEROL SULFATE (*SP) INHALER 2 PUFF INHALATION (20:12)
[2021-09-16] VITALS (7 sets, daily range): BP systolic 111–120; BP diastolic 50–69; PULSE 56–62; RESP 16–18; TEMP 36.3–36.5; O2SAT 92–95
[2021-09-16 06:23] LABS: Rapid Plasma Reagin Non-Reactive (NonReactive)
[2021-09-16 06:23] LABS: Rapid Plasma Reagin Non-Reactive (NonReactive)
[2021-09-16 07:38] LABS: Alanine Aminotransferase 42 U/L (4-50); Aspartate Amino Transferase 61 U/L (17-59); Estimated CRCL calculation 73 ml/min; Estimated Glomerular Filt Rate > 60; Lactate Dehydrogenase 705 U/L (313-618)
[2021-09-16 08:11] LABS: Basophils Percent Auto 0.4 % (0.2-1.2); Hematocrit 34.7 % (42.0-52.0); Hemoglobin 11.8 g/dL (14.0-18.0); Immature Granulocyte Absolute 0.26 K/mm3 (0.00-0.031); Immature Granulocyte Percent A 3.5 % (0-0.5); Lymphocytes Absolute Auto 0.95 K/mm3 (0.9-3.2); Lymphocytes Percent Auto 12.9 % (18.3-44.2); Mean Corpuscular Hemoglobin 33.2 pg (26-34); Mean Corpuscular Volume 97.7 fl (80-100); Mean Platelet Volume 10.5 fl (7.4-10.4); Monocytes Absolute Auto 0.4 K/mm3 (0.1-0.6); Neutrophils Absolute Auto 5.7 K/mm3 (1.3-6.7); Neutrophils Percent Auto 77.2 % (45.5-73.1); Platelet Count Result 178 k/mm3 (150-375); Red Blood Count 3.55 M/mm3 (4.6-6.20); Red Cell Distribution Width 12.1 % (11.5-14.5); White Blood Count 7.4 K/mm3 (4.5-10.0)
[2021-09-16] MEDS: BUDESONIDE/FORMOTEROL (*SP) 160-4.5 MCG 6 GM INH 2 PUFF INHALATION (08:26)
[2021-09-16] MEDS: ALBUTEROL SULFATE (*SP) INHALER 2 PUFF INHALATION (08:35)
[2021-09-16] MEDS: FINASTERIDE 5 MG TABLET PO (09:05)
[2021-09-16] MEDS: PANTOPRAZOLE 40 MG TABLET PO (09:05)
[2021-09-16] MEDS: DOCUSATE SODIUM 100 MG CAPSULE PO (09:05)
[2021-09-16] MEDS: ASPIRIN 81 MG ENTERIC TABLET PO (09:05)
[2021-09-16] MEDS: carvediloL 12.5 MG TABLET PO (09:05)
[2021-09-16] MEDS: DEXAMETHASONE 4 MG TABLET PO (09:05)
[2021-09-16] MEDS: TAMSULOSIN HCL 0.4 MG CAPSULE PO (09:05)
[2021-09-16] MEDS: buPROPion HCL SR (12 HR) 150 MG TAB PO (09:05)
[2021-09-16] MEDS: PHENYLEPH/MINERAL OIL/PETROLAT OINTMENT 57 GM 1 APPLIC RECTAL (09:08)
[2021-09-16] MEDS: BARICITINIB 2 MG TABLET 4 MG PO (09:08)
[2021-09-16] MEDS: LOSARTAN POTASSIUM 50 MG TABLET PO (09:08)
[2021-09-16] MEDS: LACTULOSE 20 GM/30 ML UDC PO (09:08)
[2021-09-16] MEDS: guaiFENesin 12 HR 600 MG TABCR 1200 MG PO (09:08)
[2021-09-16] MEDS: MORPHINE SULFATE (*CRX) 60 MG TABCR PO (09:12)
--- NOTE | 2021-09-16 13:39 | PM.DS ---
DS: Admitting Diagnosis Discharge Date 09/16/2021 Admitting Diagnosis Shortness of breath DS: Discharge Diagnosis Discharge Diagnosis (1) Acute kidney injury: Code(s): N17.9 - Acute kidney failure, unspecified Status: Acute Assessment and Plan: Likely prerenal versus ATN in the setting of acute illness and hypotension Creatinine on admission was 1.5 quickly resolved with hydration. (2) Acute respiratory failure with hypoxia: Code(s): J96.01 - Acute respiratory failure with hypoxia Status: Acute Assessment and Plan: Acute hypoxic respiratory failure; patient presented with hypoxic respiratory failure and a saturation of 89% at presentation. The patient's respiratory status improved and remained stable throughout the hospital stay. Patient was empirically started on ceftriaxone and azithromycin with evidence of left lower lobe infiltrate and leukocytosis. WBC count was 18,000 on admission. This normalized throughout the hospital stay. He tested positive for COVID. He was started on baricitinib and steroids. Patient was initially improving, with saturations in the 91-95% range on room air. Initially he did not require home oxygen however on 09/16/2021 he was noted to have mild hypoxia with SpO2 of 86% on room air and hence re-evaluation was done and he qualified to have home oxygen. He will be sent home on home oxygen. This has been arranged with the help of childbirth and infant care teacher (3) Pneumonia: Code(s): J18.9 - Pneumonia, unspecified organism Status: Acute Assessment and Plan: Patient presents with productive cough, and generalized weakness PE on CBC there is significant leukocytosis with 18.1 WBC and no left shift. Leukocytosis is improving with WBC of 9.8. Hemoglobin is stable at 12.2 hematocrit is 36 and platelet count is 190. Chest x-ray reveals left lower lobe airspace disease, atelectasis versus pneumonia. Encourage incentive spirometry. Patient was appropriately started on empirical antibiotic with ceftriaxone and azithromycin. Blood cultures are unrevealing at the time of this dictation. COVID testing is positive. Continue oral steroids and baricitinib. He finished his antibiotic course during hospital stay (4) CHF (congestive heart failure), NYHA class I: Code(s): I50.9 - Heart failure, unspecified Status: Chronic Assessment and Plan: History of congestive heart failure class 1. Patient is laying down comfortably, without any evidence of distress. There is no lower extremity edema. PAtient has coronary artery disease status post stents. Cardioprotective meds are restarted as blood pressure has improved to 152/73 this afternoon. (5) COPD (chronic obstructive pulmonary disease): Code(s): J44.9 - Chronic obstructive pulmonary disease, unspecified Status: Chronic Assessment and Plan: COPD is currently not in exacerbation. (6) BPH (benign prostatic hyperplasia): Code(s): N40.0 - Benign prostatic hyperplasia without lower urinary tract symptoms Status: Chronic Assessment and Plan: BPH: Currently there is no evidence of obstructive symptoms. Continue finasteride. (7) HTN (hypertension): Code(s): I10 - Essential (primary) hypertension Status: Chronic Assessment and Plan: Patient carries a diagnoses of chronic hypertension. At home he is on carvedilol 12.5 mg p.o. twice a day and losartan 50 mg p.o. daily. Continue home medications. (8) GERD (gastroesophageal reflux disease): Code(s): K21.9 - Gastro-esophageal reflux disease without esophagitis Status: Chronic Assessment and Plan: Continue PPI (9) Hyponatremia: Code(s): E87.1 - Hypo-osmolality and hyponatremia Status: Acute Assessment and Plan: Mild and tolerated at 134. Likely secondary to appropriate ADH release in the setting of hypotension and some element of SIADH due to acute lung disease. Monitor. Put
--- NOTE | 2021-09-16 15:05 | PCOTNOTE ---
Attempted OT tx this afternoon. Patient is getting dressed and being discharged. He declined wanting one last tx session.
== END 2021-09-16 15:30 | disposition home or self-care (01) ==
LOC: ANHED 17:39 → ANH3MEDSUR 20:18
PROVIDERS: Emergency Medicine; Internal Medicine; Admitting Provider Family Medicine; Emergency Provider Emergency Medicine; PCP Family Medicine Adolescent Medicine; Visit Provider Internal Medicine
DX: U07.1 COVID-19 (principal); N17.9 Acute kidney failure, unspecified; J96.01 Acute respiratory failure with hypoxia; J12.82 Pneumonia due to coronavirus disease 2019; I11.0 Hypertensive heart disease with heart failure; I50.9 Heart failure, unspecified; J44.9 Chronic obstructive pulmonary disease, unspecified; N40.0 Benign prostatic hyperplasia without lower urinary tract symptoms; K21.9 Gastro-esophageal reflux disease without esophagitis; E87.1 Hypo-osmolality and hyponatremia; I95.9 Hypotension, unspecified; I25.10 Atherosclerotic heart disease of native coronary artery without angina pectoris; K59.00 Constipation, unspecified
CPT/HCPCS: 36415; 70450; 71045; 71046; 74019; 80048; 80053; 81001; 82565; 82607; 82728; 82746; 83540; 83550; 83615; 84443; 84450; 84460; 85025; 86592; 87040; 93005; 94618; 94640; 96361; 96365; 96366; 96367; 96375; 96376; 97110; 97116; 97162; 97165; 97530; 97535; 99285; A9270; C9803; G0378; J0360; J0456; J0696; J7030; J8540; U0003; U0005

== ENCOUNTER 2021-10-10 14:55 | Inpatient (IN) | payer MEDICARE, SELFPAY ==
[2021-10-10] VITALS (45 sets, daily range): BP systolic 73–121; BP diastolic 37–77; PULSE 66–92; RESP 12–25; TEMP 36.5–36.9; O2SAT 86–95; BMI 28.3
--- NOTE | ~2021-10-10 | XR_ITS ---
EXAMINATION: XR chest 1V portable DATE: 10/10/2021 15:57 INDICATION: Shortness of breath. TECHNIQUE: A single frontal view of the chest was obtained on 2 radiographs. COMPARISON: Chest single view 09/15/2021, chest CT 09/03/2021 FINDINGS: There are airspace opacities in the mid and lower lung zones, right worse than left. There is volume loss of right hemithorax. No pleural effusion or pneumothorax. The heart size is normal. IMPRESSION: 1. Worsened airspace opacities in the mid and lower lung zones, consistent with pneumonia. Reviewed, dictated and finalized at location [facility]
--- NOTE | ~2021-10-10 | CT_ITS ---
EXAMINATION: CTA chest PE protocol DATE: 10/11/2021 01:04 INDICATION: Hypoxia TECHNIQUE: Computed tomography angiography (CTA) of the chest was performed with 100 mL Omnipaque-350 intravenous contrast timed to evaluate the pulmonary arteries. Coronal maximum intensity projection 3D-reconstructions were created by the technologist. Automated exposure control and iterative reconst ruction technique were employed. Exam dose: 588.44 mGy-cm total exam DLP. COMPARISON: 09/30/2021 portable upright AP chest 09/03/2021 CT pulmonary scan FINDINGS: There is diagnostic contrast enhancement of the pulmonary arteries and no evidence of pulmo nary embolism. No thoracic aortic aneurysm or dissection. Normal heart size. No pericardial effusion. Small right pleural effusion. There are extensive patchy infiltrates of the upper lobes and particula rly middle and lower lobes with some consolidation and air bronchograms particularly in the dependent lower lobes. There is a small right pleural effusion. There is likely reactive hilar and mediastinal mild lymphadenopathy. Small sliding hiatal hernia. The adrenal glands are unremarkable. Numerous small hypoattenuating lesions of the liver. Numerous hepatic cysts were noted on 02/16/2018; metastatic disease is not excluded. Diffuse idiopathic skeletal hyperostosis of the thoracic and lumbar spine. Degenerative disc disease of the cervical spine. IMPRESSION: No evidence of pulmonary embolism Extensive bilateral pulmonary infiltrates and likely reactive hilar or mediastinal adenopathy Small right pleural effusion Reviewed, dictated and finalized at [facility]. Reviewed, dictated and finalized at location A. UTIVE OFFICE MANAGER IMPRESSION: No evidence of pulmonary embolism Extensive bilateral pulmonary infiltrates and likely reactive hilar or mediasti nal adenopathy Small right pleural effusion
--- NOTE | ~2021-10-10 | XR_ITS ---
EXAMINATION: XR chest 1V portable DATE: 10/16/2021 12:44 INDICATION: Cough and shortness of breath TECHNIQUE: frontal view of the chest was obtained. COMPARISON: Chest radiograph date FINDINGS: Linear and patchy airspace opacities throughout the bilateral mid and lower lung zones consistent wit h pneumonia. Increased lucency at the upper lung zones consistent with mild emphysema better apprecia naye on prior CT. Small right pleural effusion. No pneumothorax. The cardiomediastinal silhouette is w ithin normal limits for AP technique. There are bridging osteophytes at multiple levels in the spine, consistent with diffuse idiopathic skeletal hyperostosis (DISH). IMPRESSION: 1. No significant change in bilateral lung disease consistent with pneumonia. 2. Small right pleural effusion. 3. Mild emphysema. Reviewed, dictated and finalized at location A. RAM ADVISOR
--- NOTE | ~2021-10-10 | XR_ITS ---
EXAMINATION: XR chest 1V portable EXAM DATE: 10/12/2021 11:16 INDICATION: Shortness of breath . TECHNIQUE: Portable AP frontal chest x-ray was obtained. Comparison is made to prior examination from 10/10/2021. FINDINGS: There is extensive right-sided, moderate amount of left basilar predominant airspace diseas e which is ill-defined, appearance is consistent with subacute COVID pneumonia. Other infectious etio logies not excludable. No pneumothorax or sizable pleural effusion. The cardiomediastinal silhouette is prominent but magnified on this AP technique. Cardiac silhouette is stable in size compared to oswald or exam. IMPRESSION: Extensive right, moderate left sided pneumonia unchanged. Reviewed, dictated and finalized at location A. SPORTATION ENGINEER
--- NOTE | ~2021-10-10 | US_ITS ---
EXAMINATION: US venous doppler LE EXAM DATE: 10/11/2021 11:57 INDICATION: Edema to lower extremities. TECHNIQUE: Multiple grayscale, color flow and Doppler images of the lower extremity deep venous syste ms bilaterally were obtained and reviewed. There is no prior study for comparison. FINDINGS: Right side: The right common femoral, femoral and profunda veins demonstrate normal color flow, respi ratory variation, augmentation and compressibility. Compressibility, color flow confirmed within the right popliteal, posterior tibial, peroneal, and greater saphenous veins. Bruising noted right lower with small hypoechoic subcutaneous region just below the skin area of bruising measuring about 5 mm, probably small hematoma seroma. Left side: The left common femoral, femoral and profunda veins demonstrate normal color flow, respira tory variation, augmentation and compressibility. Compressibility, color flow confirmed within the l eft popliteal, posterior tibial, peroneal, and greater saphenous veins. IMPRESSION: 1. No lower extremity deep venous thrombosis bilaterally. 2. Probable small right calf hematoma seroma. Reviewed, dictated and finalized at location B.
--- NOTE | ~2021-10-10 | XR_ITS ---
EXAMINATION: XR barium swallow modified EXAM DATE: 10/12/2021 14:08 INDICATION: s/s of aspiration . Dysphagia. TECHNIQUE: Modified barium esophagram was performed by speech pathologist with radiologist Dr. Sha Bansal present to administered fluoroscopy. Speech pathologist administered barium in varying consis tencies as per speech pathologist documentation. This was recorded on tape. There was total fluorosc opic time of 2.1 minutes. The DAP for this procedure was 1.5 Gycm2. A total of 2 images sent to PAC S from the exam. FINDINGS: Oral stage: Adequate function. Pharyngeal phase: Vallecular residual. Laryngeal penetration: Demonstrated during thin liquids with straw. Aspiration: Trace. Laryngeal sensitivity: Present. IMPRESSION: Oral feedings recommended with limitations as per speech pathologist. Please refer to ignacio santos pathologist findings and specific feeding recommendations. Reviewed, dictated and finalized at location A. GER IMPRESSION: Oral feedings recommended with limitations as per speech pathologis t. Please refer to speech pathologist findings and specific feeding recommend ations.
--- NOTE | ~2021-10-10 | XR_ITS ---
XR chest 2V 10/20/2021 11:17 Indication: Covid19 pneumonia. Procedure: AP and lateral views of the chest Comparison: 10/16/2021 Findings: Patchy bilateral airspace disease which is slightly improved on the left, consistent with p neumonia. No significant effusion or pneumothorax. Heart size normal. There is residual contrast in t he left upper abdomen bowel. No acute osseous abnormality. Impression: 1: Persistent patchy bilateral airspace disease with possible improvement in the left lung, compatibl e with pneumonia. Reviewed, dictated and finalized at location A. BAG PACKER Impression: 1: Persistent patchy bilateral airspace disease with possible improvement in th e left lung, compatible with pneumonia.
--- NOTE | ~2021-10-10 | XR_ITS ---
EXAMINATION: XR barium swallow modified DATE: 10/17/2021 11:41 INDICATION: Cough, concern for aspiration TECHNIQUE: Modified barium esophagram was performed by myself to administered fluoroscopy, in conjun ction with speech pathologist who administered barium in varying consistencies as per speech patholog ist documentation. This was recorded on tape. A single fluoroscopic spot image was recorded. The DAP for this procedure was 2.737 Gycm2. Fluoroscopy exposure time was 4.0 minutes. FINDINGS: Oral stage: Adequate function. Pharyngeal phase: Reduced laryngeal elevation, reduced tongue base retraction, reduced pharyngeal squ eeze, vallecular and piriform sinus residue. Laryngeal penetration: Trace within liquids via straw. Aspiration: None. Laryngeal sensitivity: Not applicable. IMPRESSION: Abnormal modified barium swallow as above. Please refer to speech pathologist findings an d specific feeding recommendations. Reviewed, dictated and finalized at location A. RNET SALES ASSOCIATE IMPRESSION: Abnormal modified barium swallow as above. Please refer to speech p athologist findings and specific feeding recommendations.
--- NOTE | 2021-10-10 15:16 | ECG_ITS ---
Measurements Intervals Twining Rate: 76 P: 13 SC: 177 QRS: -23 QRSD: 108 T: -11 QT: 412 QTc: 465 Interpretive Statements SINUS RHYTHM POSSIBLE LEFT ATRIAL ENLARGEMENT INCOMPLETE RIGHT BUNDLE BRANCH BLOCK BORDERLINE R WAVE PROGRESSION, ANTERIOR LEADS INFERIOR INFARCT, AGE INDETERMINATE BORDERLINE ST-T WAVE ABNORMALITY- ANTEROLATERAL LEADS BASELINE ARTIFACT- I, II, III, AVR, AVL, AVF, V1-V5 ABNORMAL ECG Electronically Signed On 10-10-2021 16:15:22 CHUCKING MACHINE SET UP OPERATOR by Tim Mary D.O.
[2021-10-10 15:42] LABS: Alveolar/Arterial O2 Gradient 136.6 mmHg; Carboxyhemoglobin 0.8 % THb (0-2.0); Fractional Inspired Oxygen 36 %; HCO3 ABG 28.6 mEq/l (22.0-26.0); Methemoglobin ABG 0.3 %THb (0-1.5); Oxygen Content ABG 13.8 %vol (16.0-22.0); Oxygen Saturation ABG 94.6 % (95.0-100.0); Oxyhemoglobin 92.2 % THb (90.0-100.0); PCO2 ABG 43.2 mmHg (35.0-45.0); PO2 FiO2 Ratio Arterial Blood 1.94 %; Reduced Hemoglobin 6.7 %THb (0-5.0); Total Hemoglobin 10.6 g/dL (12.0-18.0); pH ABG 7.439 (7.350-7.450)
[2021-10-10 15:43] LABS: Device NASAL CANNULA; Site Drawn LEFT BRACHIAL
[2021-10-10 15:48] LABS: Basophils Absolute Auto 0.1 K/mm3 (0.0-0.1); Basophils Percent Auto 0.2 % (0.2-1.2); Hematocrit 30.5 % (42.0-52.0); Hemoglobin 10.1 g/dL (14.0-18.0); Immature Granulocyte Absolute 0.24 K/mm3 (0.00-0.031); Immature Granulocyte Percent A 1.1 % (0-0.5); Lymphocytes Absolute Auto 0.94 K/mm3 (0.9-3.2); Lymphocytes Percent Auto 4.2 % (18.3-44.2); Mean Corpuscular HGB Conc 33.1 g/dl (32-36); Mean Corpuscular Hemoglobin 33.2 pg (26-34); Mean Corpuscular Volume 100.3 fl (80-100); Mean Platelet Volume 10.4 fl (7.4-10.4); Monocytes Absolute Auto 1.1 K/mm3 (0.1-0.6); Monocytes Percent Auto 4.9 % (2.6-8.5); Neutrophils Percent Auto 89.6 % (45.5-73.1); Platelet Count Result 244 k/mm3 (150-375); Red Blood Count 3.04 M/mm3 (4.6-6.20); White Blood Count 22.3 K/mm3 (4.5-10.0)
[2021-10-10 15:58] LABS: INR 1.5; Prothrombin Time 17.6 Seconds (11.1-14.7)
[2021-10-10 15:59] LABS: Partial Thromboplastin Time 40.4 SECONDS (22.3-36.8)
[2021-10-10 16:02] LABS: Alanine Aminotransferase 18 U/L (4-50); Alkaline Phosphatase 128 U/L (38-126); Anion Gap 8 mmol/L (8-16); Aspartate Amino Transferase 33 U/L (17-59); Bilirubin,Total 1.2 mg/dL (0.2-1.3); Blood Urea Nitrogen 30 mg/dL (9-20); Calcium 8.7 mg/dL (8.4-10.2); Carbon Dioxide 28 mmol/L (22-30); Chloride 96 mmol/L (98-107); Estimated CRCL calculation 45 ml/min; Estimated Glomerular Filt Rate 54; Glucose 105 mg/dL (65-110); Lipase 26 U/L (23-300); Potassium 3.2 mmol/L (3.4-5.0); Sodium 132 mmol/L (137-145)
[2021-10-10 16:03] LABS: Lactic Acid Reflex 0.9 mmol/L (0.7-2.1)
[2021-10-10 16:14] LABS: NT Pro B Type Natriuretic Pept 1280 pg/mL (5-100); Troponin I 0.012 ng/mL (0.000-0.034)
[2021-10-10] MEDS: SODIUM CHLORIDE 0.9% IV 500 ML 999 ML IV CONT (16:31)
[2021-10-10] MEDS: SODIUM CHLORIDE 0.9% IV 1,000 ML 999 ML IV CONT (16:32)
--- NOTE | 2021-10-10 16:32 | PC.NURSE ---
Dr Franklin confirmed that she would like the bolus 500 NS and 1000L NS
--- NOTE | 2021-10-10 16:43 | ED.SOB ---
HPI - SOB/Dyspnea General Chief Complaint: Shortness of Breath/Dyspnea Stated Complaint: diff breathing Source: patient and RN notes reviewed Mode of arrival: EMS Limitations: no limitations History of Present Illness HPI Narrative: This is a 76 year old male with history of CAD s/p stent, CHF, COPD, hyperlipidemia who presents for evaluation of shortness of breath. Patient was admitted to [facility] on 09/10/21 for COVID pneumonia, and he was discharged 09/16/21 on 2 L NC oxygen. He states he started having worsening shortness of breath last night , and he developed worsening symptoms today. EMS found patient 80% on room air , and he is now 94% on 4 L NC. He also has worsening nonproductive cough and weakness. He reports intermittent left chest pain with deep breathing. He denies nausea, vomiting, fever or diarrhea. EMS gave patient neb treatment and 125 mg solu medrol. Related Data Home Medications Medication Instructions Recorded Confirmed Fish Oil 1 cap PO DAILY 12/02/19 10/10/21 Mucinex 1,200 mg PO BID 12/02/19 10/10/21 Spiriva Respimat 2 puff INHALATION DAILY 12/02/19 10/10/21 albuterol sulfate [ProAir HFA] 2 puff INHALATION BID 12/02/19 10/10/21 aspirin [Aspir-81] 81 mg PO DAILY 12/02/19 10/10/21 atorvastatin 80 mg PO DAILY 12/02/19 10/10/21 budesonide-formoterol [Symbicort] 2 puff INHALATION Q12H 12/02/19 10/10/21 bupropion HCl 150 mg PO BID 12/02/19 10/10/21 carvedilol [Coreg] 12.5 mg PO BID 12/02/19 10/10/21 docusate sodium 100 mg PO BID 12/02/19 10/10/21 esomeprazole magnesium [Nexium 40 mg PO DAILY 12/02/19 10/10/21 24HR] finasteride 5 mg PO DAILY 12/02/19 10/10/21 losartan 50 mg PO DAILY 12/02/19 10/10/21 morphine [MS Contin] 60 mg PO Q12H 12/02/19 10/10/21 tamsulosin 0.4 mg PO DAILY 12/02/19 10/10/21 trazodone 100 mg PO HS 12/02/19 10/10/21 acetaminophen [Tylenol] 650 mg PO Q4H PRN 08/02/21 10/10/21 nitroglycerin 0.4 mg SUBLINGUAL Q5M PRN 08/02/21 10/10/21 polyethylene glycol 3350 [Miralax] 17 g PO DAILY PRN 08/02/21 10/10/21 sulindac 200 mg PO BID 08/02/21 10/10/21 furosemide 40 mg PO DAILY 10/10/21 10/10/21 linaclotide [Linzess] 145 mcg PO DAILY 10/10/21 10/10/21 sertraline 50 mg PO DAILY 10/10/21 10/10/21 Allergies Allergy/AdvReac Type Severity Reaction Status Date / Time No Known Allergies Allergy Unknown Verified 10/10/21 20:39 Review of Systems Review of Systems: All systems reviewed & are unremarkable except as noted in HPI and below PMFSH Past Medical History Medical History BPH (benign prostatic hyperplasia) CHF (congestive heart failure), NYHA class I COPD (chronic obstructive pulmonary disease) Encounter for screening colonoscopy GERD (gastroesophageal reflux disease) HTN (hypertension) Surgical History Surgical History H/O rotator cuff surgery History of colon resection History of coronary artery stent placement X2 History of mandibular surgery 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 Bone removed from right hip for reconstructive surgery S/P tonsillectomy and adenoidectomy Family History Family History Other No problems noted. Mother Diabetes mellitus Father COPD (chronic obstructive pulmonary disease) Colon cancer Sibling Colon cancer Lung cancer Acute myocardial infarction COPD (chronic obstructive pulmonary disease) Sibling COPD (chronic obstructive pulmonary disease) Sibling Congestive heart failure Social History Social History Social History: The patient lives with his son and [id number]. Patient is a . The patient quit smoking in 2019. He also gave up alcohol many years ago. No marijuana or illicit drugs. 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
[2021-10-10 16:50] LABS: Atypical Lymphocytes Present
[2021-10-10 16:51] LABS: Anisocytosis 1+ (NORMAL)
[2021-10-10] MEDS: SODIUM CHLORIDE 0.9% IV 1,000 ML 125 ML IV CONT (18:39)
--- NOTE | 2021-10-10 18:43 | PC.NURSE ---
Clarified with Dr Franklin. Pt received 1.5 liters as bolus, BP 118/51. OK to cancel additional 1 liter bolus. Maintenance IVF started at this time. Pt still unable to void at this time. Will continue to monitor.
--- NOTE | 2021-10-10 20:02 | ADMGEN ---
This patient, Russell Morse, was admitted to IMU Room 201-01 on 10/10/21 at 1955. Patient/family oriented to hospital policies and general routines including ID bracelet, bed and alarms, visiting hours, pain management, procedures, bathroom and other care routines, personal items, smoking policy, room service/diet, and visiting hours. Information on how to activate the Rapid Response Team has been discussed. Patient/Family are encouraged to report perceived risks to care and to ask questions if they do not understand what they are told or what they should do.
--- NOTE | 2021-10-10 21:37 | PM.IMHP ---
H&P: HPI History of Present Illness Date/Time: 10/10/21 21:37 this is a 76-year-old male patient who was discharged from this hospital on 09/16/2021 with home oxygen at 2 L per nasal cannula. Patient had tested positive for COVID-19 and had been treated with prednisone and baricitinib. The patient was also treated with azithromycin and Rocephin. He had an elevated white count which was down to normal when he was discharged. The patient came to the hospital today for evaluation of shortness of breath. Patient started having worsening shortness of breath last night. When he was evaluated by EMS he was found have a pulse oximeter of 80% on room air. Patient's oxygen level was increased to 4 L per nasal cannula and his O2 saturations came up to 94%. Patient has increased nonproductive cough and weakness. Patient's chest x-ray was read as worsened airspace opacities in the mid and lower lung zones consistent with pneumonia. Patient also stated that he has had increased swelling to his lower extremity since he was discharged from the hospital. He stated that his primary care doctor gave him diuretics which did not appear to be helping. Patient's white count was noted to be 22.3. H&H 10.1 and 30.5. His potassium was found to be 3.2 with sodium of 132. BNP is noted to be 1280. The patient is being admitted to observation status on the date of service 10/10/2021. Chief Complaint: sob Review of Systems Review of Systems: All systems reviewed & are unremarkable except as noted in HPI and below Constitutional: Constitutional: Reports as per HPI and Reports no additional constitutional complaints Eyes: Eyes: Reports as per HPI and Reports no additional eye complaints ENT: Reports system reviewed and no additional complaints, except as documented and Reports Normal hearing present Cardiovascular: Cardiovascular: Reports no additional cardiovascular complaints Respiratory: Respiratory: Reports no additional respiratory complaints and Reports no additional respiratory complaints Gastrointestinal: Gastrointestinal: Reports as per HPI and Reports no additional gastrointestinal complaints Musculoskeletal: Musculoskeletal: Reports no additional musculoskeletal complaints Integumentary/Breasts: Skin/Breast: Reports system reviewed and no additional complaints, except as docu and Reports as per HPI Neurologic: Reports system reviewed and no additional complaints, except as documented, Reports as per HPI and Reports Normal hearing present Psychiatric: Psychiatric: Reports no additional psychiatric complaints and Reports as per HPI Endocrine: Endocrine: Reports no additional endocrine complaints Hematologic/Lymphatic: Hematologic/Lymphatic: Reports no additional hematologic/lymphatic complaints Allergic/Immunologic: Allergic/Immunologic: Reports no additional allergic/immunologic complaints PENDING SALE TO [facility] Past Medical History Medical History (Updated 10/10/21 @ 21:46 by Elenita Reinoso NP) BPH (benign prostatic hyperplasia) CHF (congestive heart failure), NYHA class I COPD (chronic obstructive pulmonary disease) Encounter for screening colonoscopy GERD (gastroesophageal reflux disease) HTN (hypertension) Spinal stenosis Surgical History Surgical History H/O rotator cuff surgery History of colon resection History of coronary artery stent placement X2 History of mandibular surgery 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 Bone removed from right hip for reconstructive surgery S/P tonsillectomy and adenoidectomy Family History Family History Other No problems noted. Mother Diabetes mellitus Father COPD (chronic obstructive pulmonary disease) Colon cancer Sibling Colon cancer Lung cancer Acute myocardial infarction COPD (chronic obstructive pulmonary disease) Sibling COPD (chronic obstructive pulmonary
[2021-10-10 22:49] LABS: Add Urine Microscopic? YES; Appearance Urine Cloudy (Clear); Bacteria Urine Trace /hpf; Bilirubin Urine Negative (Negative); Blood Urine Negative (Negative); Color Urine Amber (Yellow); Glucose Urine UA Negative (Negative); Ketones Urine Negative (Negative); Leukocyte Esterase Ur Negative LEU/UL (Negative); Mucus Urine Rare /lpf; Nitrate Urine Positive (Negative); Protein Urine Negative (Negative); RBC Urine 0-2 /hpf (0-2); Squamous Epithelial Cell Urine Rare /hpf (Few)
[2021-10-11] VITALS (22 sets, daily range): BP systolic 89–132; BP diastolic 48–70; PULSE 56–78; RESP 14–21; TEMP 36.2–37; O2SAT 90–98
--- NOTE | 2021-10-11 | ECHO_ITS ---
Patient Info Name: Russell Morse Age: 76 years : 1945 Gender: Male Ht: 71 in Wt: 202 lbs BSA: 2.16 m2 HR: 69 bpm BP: 108 / 63 mmHg Heart Rhythm: Sinus Rhythm Technical Quality: Fair Exam Date: 10/11/2021 1:33 PM Exam Location: [facility] Pulmonary Exam Room: [facility] Patient Status: Inpatient Admit Date: 10/11/2021 Staff Ordering Physician: Elenita Reinoso NP Opener Tender: Radha Gamble RDCS Attending Provider: Luiz Tejeda MD Referring Physician: Arleth FERNÁNDEZ; Exam Type: CA echo doppler color flow Study Info Indications - JOHN CHF CAD STENT Complete two-dimensional, color flow and Doppler transthoracic echocardiogram is performed. Summary 1. Complete two-dimensional, color flow and Doppler transthoracic echocardiogram is performed. 2. Left ventricular chamber dimension is normal. 3. Left ventricular systolic function is mildly reduced, estimated at 45-50%. 4. There is no increased left ventricular wall thickness. 5. The left ventricular diastolic function is grade I diastolic dysfunction. 6. The inferior wall, inferoseptal wall, basal inferolateral wall, and mid inferolateral wall are hypokinetic. 7. Left atrial chamber dimension is mildly enlarged. Left Ventricle Left ventricular chamber dimension is normal. Left ventricular systolic function is mildly reduced, estimated at 45-50%. There is no increased left ventricular wall thickness. The left ventricular diastolic function is grade I diastolic dysfunction. The inferior wall, inferoseptal wall, basal inferolateral wall, and mid inferolateral wall are hypokinetic. All other espinal appear normal. Right Ventricle Right ventricular chamber dimension is normal. Right ventricular systolic function is normal. Left Atria Left atrial chamber dimension is mildly enlarged. Right Atria Right atrial chamber dimension is normal. Atrial Septum Intact interatrial septum visualized by color flow imaging. Aortic Valve The aortic valve is trileaflet. There is mild aortic valve sclerosis. There is no aortic valve stenosis. There is trace aortic valve regurgitation. Pulmonic Valve The pulmonic valve is not well visualized. There is no pulmonic valve stenosis. There is trace pulmonic regurgitation. Mitral Valve The mitral valve has normal leaflets. There is no mitral valve stenosis. There is trace mitral valve regurgitation. Tricuspid Valve The tricuspid valve leaflets are normal. There is no significant tricuspid valve stenosis. There is trace tricuspid valve regurgitation. No pulmonary hypertension, estimated pulmonary arterial systolic pressure is 17 mmHg. Pericardium/Pleural The pericardium appears normal. There is no pericardial effusion. Inferior Vena Cava Normal inferior vena cava with >50% collapse upon inspiration consistent with normal right atrial pressure, 5 mmHg. Aorta The aortic root size at the sinus of Valsalva is normal. Left Ventricular Outflow Tract Name Value Normal LVOT 2D LVOT Diameter 2.1 cm LVOT Doppler LVOT Peak Gradient 5 mmHg LVOT Mean
[2021-10-11 00:13] LABS: Glucose Point of Care 186 mg/dl (65-105)
[2021-10-11] MEDS: guaiFENesin 12 HR 600 MG TABCR 1200 MG PO ×3 (00:23→21:04)
[2021-10-11] MEDS: buPROPion HCL SR (12 HR) 150 MG TAB PO ×3 (00:23→21:04)
[2021-10-11] MEDS: MORPHINE SULFATE (*CRX) 60 MG TABCR PO ×3 (00:23→21:04)
[2021-10-11] MEDS: traZODone HCL 50 MG TABLET 100 MG PO ×2 (00:23→22:08)
[2021-10-11 04:43] LABS: Basophils Percent Auto 0.1 % (0.2-1.2); Hematocrit 28.4 % (42.0-52.0); Hemoglobin 9.4 g/dL (14.0-18.0); Immature Granulocyte Absolute 0.22 K/mm3 (0.00-0.031); Immature Granulocyte Percent A 1.4 % (0-0.5); Lymphocytes Absolute Auto 0.82 K/mm3 (0.9-3.2); Lymphocytes Percent Auto 5.3 % (18.3-44.2); Mean Corpuscular HGB Conc 33.1 g/dl (32-36); Mean Corpuscular Hemoglobin 33.2 pg (26-34); Mean Corpuscular Volume 100.4 fl (80-100); Mean Platelet Volume 10.4 fl (7.4-10.4); Monocytes Absolute Auto 0.5 K/mm3 (0.1-0.6); Monocytes Percent Auto 3.3 % (2.6-8.5); Neutrophils Percent Auto 89.9 % (45.5-73.1); Platelet Count Result 215 k/mm3 (150-375); Red Blood Count 2.83 M/mm3 (4.6-6.20); White Blood Count 15.6 K/mm3 (4.5-10.0)
[2021-10-11 05:01] LABS: Alanine Aminotransferase 18 U/L (4-50); Albumin Level 2.8 g/dL (3.5-5.1); Alkaline Phosphatase 112 U/L (38-126); Anion Gap 6 mmol/L (8-16); Aspartate Amino Transferase 31 U/L (17-59); Bilirubin,Total 0.6 mg/dL (0.2-1.3); Blood Urea Nitrogen 29 mg/dL (9-20); Calcium 8.1 mg/dL (8.4-10.2); Carbon Dioxide 28 mmol/L (22-30); Chloride 99 mmol/L (98-107); Estimated CRCL calculation 53 ml/min; Estimated Glomerular Filt Rate > 60; Glucose 183 mg/dL (65-110); Lactate Dehydrogenase 447 U/L (313-618); Potassium 3.3 mmol/L (3.4-5.0); Sodium 133 mmol/L (137-145)
[2021-10-11 05:04] LABS: Lactic Acid Reflex 0.9 mmol/L (0.7-2.1)
--- NOTE | 2021-10-11 06:00 | ECG_ITS ---
Measurements Intervals [place] Rate: 64 P: 45 TX: 230 QRS: -13 QRSD: 122 T: -56 QT: 471 QTc: 489 Interpretive Statements SINUS RHYTHM BORDERLINE AV CONDUCTION DELAY INCOMPLETE RIGHT BUNDLE BRANCH BLOCK BORDERLINE T WAVE ABNORMALITY- INFERIOR LEADS BASELINE ARTIFACT- I, II, III, AVR, AVL, AVF, V3 BORDERLINE ECG Electronically Signed On 10-11-2021 10:29:02 MIDDLE SCHOOL ASSISTANT PRINCIPAL by Tim Mary D.O.
[2021-10-11] MEDS: ALBUTEROL SULFATE (*SP) AEROSOL 1 PUFF 2 PUFF INHALATION ×2 (08:10→20:16)
[2021-10-11] MEDS: UMECLIDINIUM BROMIDE 62.5 MCG ELLIPTA 1 PUFF INHALATION (08:10)
[2021-10-11 08:39] LABS: Glucose Point of Care 140 mg/dl (65-105)
--- NOTE | 2021-10-11 08:46 | P.CDI_ITS ---
CDI Query Clarification Request 1) -COVID 19 has been documented on problem list. Please clarify status of COVID 19: * Current infection/ acute manifestation * Sequelae or residual effect * History of Covid * Unable to determine 2) -Sepsis documented by EDP. No documentation of sepsis in H&P. -Pneumonia documented. MAP <70 multiple times on 10/10. pO2 70 on 4L O2. Creatinine 1.3, total bilirubin1.2. If these findings are attributed to infection/ sepsis, the SOFA score is 5. Please clarify if sepsis was ruled in or ruled out. <Radha Berger RN - Last Filed: 10/11/21 08:54>
--- NOTE | 2021-10-11 09:14 | PM.IMPN ---
Progress Note: A&P Assessment and Plan (1) Pneumonia: Code(s): J18.9 - Pneumonia, unspecified organism Status: Acute Assessment and Plan: Blood and sputum cultures are pending. The patient was started on healthcare associated pneumonia antibiotic stewardship with vancomycin and Zosyn. Patient has an elevated white count. The patient did receive steroids while he was here although that was approximately 3 weeks ago. The patient did go home with oxygen at 2 L and he is now requiring 4 L per nasal cannula. CTA negative for PE Bilateral extensive pneumonia noted on the CTA which was not present in the previous CT scan This could be damages/fibrosis from COVID infection recently Could be super added infection bacterial which will give vancomycin Zosyn and azithromycin With recent leg swelling possibility of congestive heart failure is also there will start with IV Lasix and stop his fluids today echocardiogram is pending will check his BNP Lower extremity Doppler is ordered and is pending (2) Acute respiratory failure: Code(s): J96.00 - Acute respiratory failure, unspecified whether with hypoxia or hypercapnia Status: Acute Assessment and Plan: The patient was sent home with oxygen at 2 L per nasal cannula is now up to 4 L per nasal cannula. According to the chest x-ray the patient has worsening pneumonia. He does have leukocytosis and antibiotics were started. Continue with inhalers. CTA reviewed has extensive bilateral right more than left pneumonia infiltrate likely from damage from his recent COVID Will cover atypicals by adding azithromycin as well Continue vancomycin Zosyn as ordered (3) Anemia: Code(s): D64.9 - Anemia, unspecified Status: Acute Assessment and Plan: Patient appears to be at his baseline. Continue to monitor. (4) COVID: Code(s): U07.1 - COVID-19 Status: Acute Assessment and Plan: Patient was treated for COVID his last admission approximately a month ago. (5) Hyponatremia: Code(s): E87.1 - Hypo-osmolality and hyponatremia Status: Acute Assessment and Plan: Patient is chronically low. Could be related to his congestive heart failure. The patient stated he recently was started on diuretics as well. (6) CHF (congestive heart failure), NYHA class I: Code(s): I50.9 - Heart failure, unspecified Status: Chronic Assessment and Plan: Check an echo and continue with Lasix. Continue with Coreg. (7) HTN (hypertension): Code(s): I10 - Essential (primary) hypertension Status: Chronic Assessment and Plan: Continue with Coreg\and losartan (8) COPD (chronic obstructive pulmonary disease): Code(s): J44.9 - Chronic obstructive pulmonary disease, unspecified Status: Chronic Assessment and Plan: Continue with Symbicort and albuterol inhaler. Continue with Spiriva (9) BPH (benign prostatic hyperplasia): Code(s): N40.0 - Benign prostatic hyperplasia without lower urinary tract symptoms Status: Chronic Assessment and Plan: Continue with finasteride (10) GERD (gastroesophageal reflux disease): Code(s): K21.9 - Gastro-esophageal reflux disease without esophagitis Status: Chronic Assessment and Plan: Continue with Nexium (11) Constipation: Code(s): K59.00 - Constipation, unspecified Status: Acute Assessment and Plan: No bowel movement since 7 days CHAIR MENDER. Give enema today continue MiraLax Linzess and H will add milk a magnesia Subjective Date/time seen: 10/11/21 09:14 Interval history: HPI: his is a 76-year-old male patient who was discharged from this hospital on 09/16/2021 with home oxygen at 2 L per nasal cannula. Patient had tested positive for COVID-19 and had been treated with prednisone and baricitinib. The patient was also treated with azithromycin and Rocephin. He had an elevated white count which was down to
[2021-10-11] MEDS: ATORVASTATIN 40 MG TABLET 80 MG PO (10:19)
[2021-10-11] MEDS: ENOXAPARIN 40 MG/0.4 ML SYRINGE SUB-Q (10:19)
[2021-10-11] MEDS: ASPIRIN 81 MG ENTERIC TABLET PO (10:20)
[2021-10-11] MEDS: OMEGA 3 POLYUNSAT FATTY ACIDS 1 GM CAP PO (10:21)
[2021-10-11] MEDS: FUROSEMIDE INJ 40 MG/4 ML VIAL IV PUSH (10:21)
[2021-10-11] MEDS: POTASSIUM CHLORIDE 20 MEQ TABLET 40 MEQ PO (10:22)
[2021-10-11] MEDS: DOCUSATE SODIUM 100 MG CAPSULE PO (10:22)
[2021-10-11] MEDS: carvediloL 12.5 MG TABLET PO ×2 (10:23→18:45)
[2021-10-11] MEDS: LOSARTAN POTASSIUM 50 MG TABLET PO (10:23)
[2021-10-11] MEDS: TAMSULOSIN HCL 0.4 MG CAPSULE PO (10:24)
[2021-10-11] MEDS: BENZONATATE 100 MG CAPSULE 200 MG PO (10:24)
[2021-10-11] MEDS: FINASTERIDE 5 MG TABLET PO (10:25)
[2021-10-11] MEDS: PANTOPRAZOLE 40 MG TABLET PO (10:25)
[2021-10-11] MEDS: polyethylene glycoL 3350 17 GM POWD.PACK PO (10:26)
[2021-10-11] MEDS: Linaclotide [Linzess] 145 mcg capsule 145 EACH PO (10:32)
[2021-10-11] MEDS: SERTRALINE HCL 50 MG TABLET PO (10:33)
[2021-10-11 10:37] LABS: NT Pro B Type Natriuretic Pept 1430 pg/mL (5-100)
[2021-10-11 13:17] LABS: Glucose Point of Care 140 mg/dl (65-105)
--- NOTE | 2021-10-11 14:45 | PC.NURSE ---
On 10/11/21, the student, [Yesenia Maddox], provided care and completed [facility] documentation on this patient. I have reviewed the student's documentation and agree with the findings.
[2021-10-11 17:48] LABS: Glucose Point of Care 89 mg/dl (65-105)
[2021-10-11 19:43] LABS: Glucose Point of Care 146 mg/dl (65-105)
[2021-10-11] MEDS: FLUTICASONE/SALMETEROL 115-21 MCG INHALER 1 PUFF 2 PUFF INHALATION (20:16)
[2021-10-12] VITALS (21 sets, daily range): BP systolic 82–100; BP diastolic 41–64; PULSE 46–70; RESP 18–20; TEMP 36.4–36.8; O2SAT 91–96
[2021-10-12] MEDS: SALINE 0.65% NAS SOLN 44 ML BTL 1 SPRAY NASAL ×2 (03:18→20:35)
[2021-10-12 05:08] LABS: Basophils Percent Auto 0.2 % (0.2-1.2); Eosinophils Percent Auto 0.2 % (0-4.4); Hematocrit 27.6 % (42.0-52.0); Immature Granulocyte Absolute 0.12 K/mm3 (0.00-0.031); Immature Granulocyte Percent A 0.9 % (0-0.5); Lymphocytes Absolute Auto 1.35 K/mm3 (0.9-3.2); Lymphocytes Percent Auto 10.4 % (18.3-44.2); Mean Corpuscular HGB Conc 32.6 g/dl (32-36); Mean Corpuscular Hemoglobin 33.1 pg (26-34); Mean Corpuscular Volume 101.5 fl (80-100); Mean Platelet Volume 10.6 fl (7.4-10.4); Monocytes Absolute Auto 0.8 K/mm3 (0.1-0.6); Neutrophils Absolute Auto 10.6 K/mm3 (1.3-6.7); Neutrophils Percent Auto 82.3 % (45.5-73.1); Platelet Count Result 225 k/mm3 (150-375); Red Blood Count 2.72 M/mm3 (4.6-6.20); Red Cell Distribution Width 14.9 % (11.5-14.5); White Blood Count 12.9 K/mm3 (4.5-10.0)
[2021-10-12 05:20] LABS: Anion Gap 3 mmol/L (8-16); Blood Urea Nitrogen 26 mg/dL (9-20); Carbon Dioxide 31 mmol/L (22-30); Chloride 98 mmol/L (98-107); Estimated CRCL calculation 49 ml/min; Estimated Glomerular Filt Rate 59; Glucose 139 mg/dL (65-110); Magnesium 1.8 mg/dL (1.6-2.3); Potassium 3.9 mmol/L (3.4-5.0); Sodium 132 mmol/L (137-145)
[2021-10-12 07:47] LABS: Glucose Point of Care 141 mg/dl (65-105)
[2021-10-12] MEDS: OMEGA 3 POLYUNSAT FATTY ACIDS 1 GM CAP PO (08:26)
[2021-10-12] MEDS: TAMSULOSIN HCL 0.4 MG CAPSULE PO (08:26)
[2021-10-12] MEDS: PANTOPRAZOLE 40 MG TABLET PO (08:26)
[2021-10-12] MEDS: SERTRALINE HCL 50 MG TABLET PO (08:26)
[2021-10-12] MEDS: Linaclotide [Linzess] 145 mcg capsule 145 EACH PO (08:27)
[2021-10-12] MEDS: guaiFENesin 12 HR 600 MG TABCR 1200 MG PO ×2 (08:27→20:35)
[2021-10-12] MEDS: MORPHINE SULFATE (*CRX) 60 MG TABCR PO ×2 (08:27→20:35)
[2021-10-12] MEDS: FINASTERIDE 5 MG TABLET PO (08:27)
[2021-10-12] MEDS: buPROPion HCL SR (12 HR) 150 MG TAB PO ×2 (08:28→20:35)
[2021-10-12] MEDS: ENOXAPARIN 40 MG/0.4 ML SYRINGE SUB-Q (08:28)
[2021-10-12] MEDS: DOCUSATE SODIUM 100 MG CAPSULE PO (08:28)
[2021-10-12] MEDS: carvediloL 12.5 MG TABLET PO (08:29)
[2021-10-12] MEDS: ASPIRIN 81 MG ENTERIC TABLET PO (08:29)
[2021-10-12] MEDS: ATORVASTATIN 40 MG TABLET 80 MG PO (08:29)
[2021-10-12] MEDS: UMECLIDINIUM BROMIDE 62.5 MCG ELLIPTA 1 PUFF INHALATION (09:56)
[2021-10-12] MEDS: ALBUTEROL SULFATE (*SP) AEROSOL 1 PUFF 2 PUFF INHALATION ×2 (09:57→19:04)
[2021-10-12] MEDS: FLUTICASONE/SALMETEROL 115-21 MCG INHALER 1 PUFF 2 PUFF INHALATION ×2 (09:57→19:05)
--- NOTE | 2021-10-12 10:24 | PM.IMPN ---
Progress Note: A&P Assessment and Plan (1) Pneumonia: Code(s): J18.9 - Pneumonia, unspecified organism Status: Acute Assessment and Plan: Blood and sputum cultures are pending. The patient was started on healthcare associated pneumonia antibiotic stewardship with vancomycin and Zosyn. Patient has an elevated white count. The patient did receive steroids while he was here although that was approximately 3 weeks ago. The patient did go home with oxygen at 2 L and he is now requiring 4 L per nasal cannula. CTA negative for PE Bilateral extensive pneumonia noted on the CTA which was not present in the previous CT scan This could be damages/fibrosis from COVID infection recently Could be super added infection bacterial which will give vancomycin Zosyn and azithromycin With recent leg swelling possibility of congestive heart failure is also there will start with IV Lasix and stop his fluids today echocardiogram is pending will check his BNP Lower extremity Doppler is negative for DVT bilaterally 10/11/2021 WBC count continues to improve down to 12,000 today. Admission WBC count of 22,000 Recheck chest x-ray today (2) Acute respiratory failure: Code(s): J96.00 - Acute respiratory failure, unspecified whether with hypoxia or hypercapnia Status: Acute Assessment and Plan: The patient was sent home with oxygen at 2 L per nasal cannula is now up to 4 L per nasal cannula. According to the chest x-ray the patient has worsening pneumonia. He does have leukocytosis and antibiotics were started. Continue with inhalers. CTA reviewed has extensive bilateral right more than left pneumonia infiltrate likely from damage from his recent COVID Will cover atypicals by adding azithromycin as well Continue vancomycin Zosyn as ordered Oxygen requirement similar to yesterday (3) Anemia: Code(s): D64.9 - Anemia, unspecified Status: Acute Assessment and Plan: Patient appears to be at his baseline. Continue to monitor. (4) COVID: Code(s): U07.1 - COVID-19 Status: Acute Assessment and Plan: Patient was treated for COVID his last admission approximately a month ago. (5) Hyponatremia: Code(s): E87.1 - Hypo-osmolality and hyponatremia Status: Acute Assessment and Plan: Patient is chronically low. Could be related to his congestive heart failure. The patient stated he recently was started on diuretics as well. Continue diuretics (6) CHF (congestive heart failure), NYHA class I: Code(s): I50.9 - Heart failure, unspecified Status: Chronic Assessment and Plan: Echocardiogram : 1. Complete two-dimensional, color flow and Doppler transthoracic echocardiogram is performed. 2. Left ventricular chamber dimension is normal. 3. Left ventricular systolic function is mildly reduced, estimated at 45-50%. 4. There is no increased left ventricular wall thickness. 5. The left ventricular diastolic function is grade I diastolic dysfunction. 6. The inferior wall, inferoseptal wall, basal inferolateral wall, and mid inferolateral wall are hypokinetic. 7. Left atrial chamber dimension is mildly enlarged delete that Continue with Lasix. Continue with Coreg. 20 mg Lasix IV daily (7) HTN (hypertension): Code(s): I10 - Essential (primary) hypertension Status: Chronic Assessment and Plan: Continue with Coreg\and losartan (8) COPD (chronic obstructive pulmonary disease): Code(s): J44.9 - Chronic obstructive pulmonary disease, unspecified Status: Chronic Assessment and Plan: Continue with Symbicort and albuterol inhaler. Continue with Spiriva (9) BPH (benign prostatic hyperplasia): Code(s): N40.0 - Benign prostatic hyperplasia without lower urinary tract symptoms Status: Chronic Assessment and Plan: Continue with finasteride (10) GERD (gastroesophageal reflux disease): Code(s): K
--- NOTE | 2021-10-12 13:42 | PCSTNOTE ---
Please refer to the Bedside Swallow Evaluation in the EMR. MBS recommended.
--- NOTE | 2021-10-12 15:07 | PCSTNOTE ---
Please refer to the Modified Barium Swallow Evaluation in the EMR.
--- NOTE | 2021-10-12 16:27 | PC.NURSE ---
Notified dr. blair of low blood pressure at 1600. Verbal orders to hold coreg 1700 po dose. Will continue to monitor per protocol.
[2021-10-12] MEDS: PIPERACILLIN/TAZOBACTAM SOD 4.5 GM in SODIUM CHLORIDE 0.9% IV 100 ML IVPB ×2 (18:22→23:11)
[2021-10-12 19:57] LABS: Glucose Point of Care 136 mg/dl (65-105)
[2021-10-12] MEDS: traZODone HCL 50 MG TABLET 100 MG PO (20:36)
--- NOTE | 2021-10-12 21:22 | PC.NURSE ---
This patient, Russell Morse, was transferred to room 247 on 10/12/21 at 2120. Personal belongings sent with patient. Report given to MARJAN Anderson. Appropriate documentation sent with patient.
--- NOTE | 2021-10-12 21:47 | PC.NURSE ---
At 2119 received from IMU. Oriented pt to his room. Call light in reach. Bed alarm activated.
[2021-10-12 23:47] LABS: Vancomycin Trough 14.2 ug/mL (10.0-20.0)
[2021-10-13] VITALS (13 sets, daily range): BP systolic 103–126; BP diastolic 43–65; PULSE 59–87; RESP 16; TEMP 36.1–36.7; O2SAT 91–95
[2021-10-13] MEDS: PIPERACILLIN/TAZOBACTAM SOD 4.5 GM in SODIUM CHLORIDE 0.9% IV 100 ML IVPB ×4 (05:38→23:13)
[2021-10-13 06:06] LABS: Basophils Percent Auto 0.3 % (0.2-1.2); Eosinophils Absolute Auto 0.1 K/mm3 (0-0.3); Hematocrit 27.9 % (42.0-52.0); Immature Granulocyte Absolute 0.09 K/mm3 (0.00-0.031); Immature Granulocyte Percent A 1.3 % (0-0.5); Lymphocytes Absolute Auto 1.11 K/mm3 (0.9-3.2); Lymphocytes Percent Auto 15.5 % (18.3-44.2); Mean Corpuscular HGB Conc 32.3 g/dl (32-36); Mean Corpuscular Hemoglobin 32.5 pg (26-34); Mean Corpuscular Volume 100.7 fl (80-100); Mean Platelet Volume 10.6 fl (7.4-10.4); Monocytes Absolute Auto 0.6 K/mm3 (0.1-0.6); Neutrophils Absolute Auto 5.2 K/mm3 (1.3-6.7); Neutrophils Percent Auto 71.9 % (45.5-73.1); Platelet Count Result 216 k/mm3 (150-375); Red Blood Count 2.77 M/mm3 (4.6-6.20); Red Cell Distribution Width 14.7 % (11.5-14.5); White Blood Count 7.2 K/mm3 (4.5-10.0)
[2021-10-13 06:30] LABS: Anion Gap 5 mmol/L (8-16); Blood Urea Nitrogen 17 mg/dL (9-20); Calcium 8.1 mg/dL (8.4-10.2); Carbon Dioxide 28 mmol/L (22-30); Chloride 99 mmol/L (98-107); Estimated CRCL calculation 64 ml/min; Estimated Glomerular Filt Rate > 60; Glucose 99 mg/dL (65-110); Potassium 3.8 mmol/L (3.4-5.0); Sodium 132 mmol/L (137-145)
[2021-10-13 08:00] LABS: Glucose Point of Care 94 mg/dl (65-105)
[2021-10-13] MEDS: SERTRALINE HCL 50 MG TABLET PO (08:43)
[2021-10-13] MEDS: SENNA/DOCUSATE SODIUM TABLET 1 TAB PO ×2 (08:43→17:10)
[2021-10-13] MEDS: guaiFENesin 12 HR 600 MG TABCR 1200 MG PO ×2 (08:43→20:14)
[2021-10-13] MEDS: FINASTERIDE 5 MG TABLET PO (08:43)
[2021-10-13] MEDS: ATORVASTATIN 40 MG TABLET 80 MG PO (08:43)
[2021-10-13] MEDS: MORPHINE SULFATE (*CRX) 60 MG TABCR PO ×2 (08:43→20:14)
[2021-10-13] MEDS: DOCUSATE SODIUM 100 MG CAPSULE PO ×2 (08:43→17:10)
[2021-10-13] MEDS: OMEGA 3 POLYUNSAT FATTY ACIDS 1 GM CAP PO (08:43)
[2021-10-13] MEDS: TAMSULOSIN HCL 0.4 MG CAPSULE PO (08:43)
[2021-10-13] MEDS: PANTOPRAZOLE 40 MG TABLET PO (08:44)
[2021-10-13] MEDS: buPROPion HCL SR (12 HR) 150 MG TAB PO ×2 (08:44→20:14)
[2021-10-13] MEDS: ASPIRIN 81 MG ENTERIC TABLET PO (08:44)
[2021-10-13] MEDS: ENOXAPARIN 40 MG/0.4 ML SYRINGE SUB-Q (08:44)
[2021-10-13] MEDS: MAGNESIUM HYDROXIDE SUSP 30 ML UDC PO (08:46)
[2021-10-13] MEDS: Linaclotide [Linzess] 145 mcg capsule 145 EACH PO (08:46)
[2021-10-13] MEDS: UMECLIDINIUM BROMIDE 62.5 MCG ELLIPTA 1 PUFF INHALATION (09:05)
[2021-10-13] MEDS: FLUTICASONE/SALMETEROL 115-21 MCG INHALER 1 PUFF 2 PUFF INHALATION ×2 (09:05→22:02)
[2021-10-13] MEDS: ALBUTEROL SULFATE (*SP) AEROSOL 1 PUFF 2 PUFF INHALATION ×2 (09:05→22:02)
--- NOTE | 2021-10-13 10:01 | PM.IMPN ---
Progress Note: A&P Assessment and Plan (1) Pneumonia: Code(s): J18.9 - Pneumonia, unspecified organism Status: Acute Assessment and Plan: Blood culture with no growth to date sputum culture with heavy growth of Pseudomonas aeruginosa sensitivities pending continue with Zosyn will discontinue vancomycin. Blood and sputum cultures are pending. The patient was started on healthcare associated pneumonia antibiotic stewardship with vancomycin and Zosyn. Patient has an elevated white count. The patient did receive steroids while he was here although that was approximately 3 weeks ago. The patient did go home with oxygen at 2 L and he is now requiring 4 L per nasal cannula. CTA negative for PE Bilateral extensive pneumonia noted on the CTA which was not present in the previous CT scan This could be damages/fibrosis from COVID infection recently Could be super added infection bacterial which will give vancomycin Zosyn and azithromycin With recent leg swelling possibility of congestive heart failure is also there will start with IV Lasix and stop his fluids today echocardiogram is pending will check his BNP Lower extremity Doppler is negative for DVT bilaterally 10/11/2021 WBC count continues to improve down to 12,000 today. Admission WBC count of 22,000 Recheck chest x-ray today (2) Acute respiratory failure: Code(s): J96.00 - Acute respiratory failure, unspecified whether with hypoxia or hypercapnia Status: Acute Assessment and Plan: Still requiring supplemental oxygen might be able to start weaning him off as possible. The patient was sent home with oxygen at 2 L per nasal cannula is now up to 4 L per nasal cannula. According to the chest x-ray the patient has worsening pneumonia. He does have leukocytosis and antibiotics were started. Continue with inhalers. CTA reviewed has extensive bilateral right more than left pneumonia infiltrate likely from damage from his recent COVID Will cover atypicals by adding azithromycin as well Continue vancomycin Zosyn as ordered Oxygen requirement similar to yesterday (3) Anemia: Code(s): D64.9 - Anemia, unspecified Status: Acute Assessment and Plan: Unchanged Patient appears to be at his baseline. Continue to monitor. (4) COVID: Code(s): U07.1 - COVID-19 Status: Acute Assessment and Plan: Patient is convalescent Patient was treated for COVID his last admission approximately a month ago. (5) Hyponatremia: Code(s): E87.1 - Hypo-osmolality and hyponatremia Status: Acute Assessment and Plan: Continue to monitor Patient is chronically low. Could be related to his congestive heart failure. The patient stated he recently was started on diuretics as well. Continue diuretics (6) CHF (congestive heart failure), NYHA class I: Code(s): I50.9 - Heart failure, unspecified Status: Chronic Assessment and Plan: Patient will benefit from another day or so of diuresis, continue to monitor. Echocardiogram : 1. Complete two-dimensional, color flow and Doppler transthoracic echocardiogram is performed. 2. Left ventricular chamber dimension is normal. 3. Left ventricular systolic function is mildly reduced, estimated at 45-50%. 4. There is no increased left ventricular wall thickness. 5. The left ventricular diastolic function is grade I diastolic dysfunction. 6. The inferior wall, inferoseptal wall, basal inferolateral wall, and mid inferolateral wall are hypokinetic. 7. Left atrial chamber dimension is mildly enlarged delete that Continue with Lasix. Continue with Coreg. 20 mg Lasix IV daily (7) HTN (hypertension): Code(s): I10 - Essential (primary) hypertension Status: Chronic Assessment and Plan: On the lower side, continue to monitor Continue with Coreg\and losartan (8) COPD (chronic obstructive pulmonary disease): Code(s): J44.9 - Chronic ob
[2021-10-13 11:42] LABS: Glucose Point of Care 113 mg/dl (65-105)
[2021-10-13 17:14] LABS: Glucose Point of Care 96 mg/dl (65-105)
[2021-10-13] MEDS: traZODone HCL 50 MG TABLET 100 MG PO (20:14)
[2021-10-14] VITALS (14 sets, daily range): BP systolic 105–143; BP diastolic 51–73; PULSE 65–90; RESP 18–20; TEMP 36.1–36.7; O2SAT 94–98
[2021-10-14 05:26] LABS: Estimated CRCL calculation 72 ml/min; Estimated Glomerular Filt Rate > 60
[2021-10-14] MEDS: PIPERACILLIN/TAZOBACTAM SOD 4.5 GM in SODIUM CHLORIDE 0.9% IV 100 ML IVPB ×4 (05:28→23:02)
[2021-10-14 07:58] LABS: Glucose Point of Care 97 mg/dl (65-105)
[2021-10-14] MEDS: FLUTICASONE/SALMETEROL 115-21 MCG INHALER 1 PUFF 2 PUFF INHALATION ×2 (08:09→20:12)
[2021-10-14] MEDS: UMECLIDINIUM BROMIDE 62.5 MCG ELLIPTA 1 PUFF INHALATION (08:09)
[2021-10-14] MEDS: ALBUTEROL SULFATE (*SP) AEROSOL 1 PUFF 2 PUFF INHALATION ×2 (08:09→20:11)
[2021-10-14] MEDS: SENNA/DOCUSATE SODIUM TABLET 1 TAB PO (08:39)
[2021-10-14] MEDS: ASPIRIN 81 MG ENTERIC TABLET PO (08:39)
[2021-10-14] MEDS: ATORVASTATIN 40 MG TABLET 80 MG PO (08:39)
[2021-10-14] MEDS: buPROPion HCL SR (12 HR) 150 MG TAB PO ×2 (08:39→20:20)
[2021-10-14] MEDS: ENOXAPARIN 40 MG/0.4 ML SYRINGE SUB-Q (08:39)
[2021-10-14] MEDS: DOCUSATE SODIUM 100 MG CAPSULE PO (08:39)
[2021-10-14] MEDS: FINASTERIDE 5 MG TABLET PO (08:40)
[2021-10-14] MEDS: Linaclotide [Linzess] 145 mcg capsule 145 EACH PO (08:40)
[2021-10-14] MEDS: guaiFENesin 12 HR 600 MG TABCR 1200 MG PO ×2 (08:40→20:21)
[2021-10-14] MEDS: SERTRALINE HCL 50 MG TABLET PO (08:41)
[2021-10-14] MEDS: TAMSULOSIN HCL 0.4 MG CAPSULE PO (08:41)
[2021-10-14] MEDS: OMEGA 3 POLYUNSAT FATTY ACIDS 1 GM CAP PO (08:41)
[2021-10-14] MEDS: PANTOPRAZOLE 40 MG TABLET PO (08:41)
[2021-10-14] MEDS: MORPHINE SULFATE (*CRX) 60 MG TABCR PO ×2 (08:41→20:21)
--- NOTE | 2021-10-14 09:39 | PM.IMPN ---
Progress Note: A&P Assessment and Plan (1) Pneumonia: Code(s): J18.9 - Pneumonia, unspecified organism Status: Acute Assessment and Plan: Improved Blood culture with no growth to date sputum culture with heavy growth of Pseudomonas aeruginosa sensitivities pending continue with Zosyn will discontinue vancomycin. Blood and sputum cultures are pending. The patient was started on healthcare associated pneumonia antibiotic stewardship with vancomycin and Zosyn. Patient has an elevated white count. The patient did receive steroids while he was here although that was approximately 3 weeks ago. The patient did go home with oxygen at 2 L and he is now requiring 4 L per nasal cannula. CTA negative for PE Bilateral extensive pneumonia noted on the CTA which was not present in the previous CT scan This could be damages/fibrosis from COVID infection recently Could be super added infection bacterial which will give vancomycin Zosyn and azithromycin With recent leg swelling possibility of congestive heart failure is also there will start with IV Lasix and stop his fluids today echocardiogram is pending will check his BNP Lower extremity Doppler is negative for DVT bilaterally 10/11/2021 WBC count continues to improve down to 12,000 today. Admission WBC count of 22,000 Recheck chest x-ray today (2) Acute respiratory failure: Code(s): J96.00 - Acute respiratory failure, unspecified whether with hypoxia or hypercapnia Status: Acute Assessment and Plan: Continue supplemental oxygen wean off as needed Still requiring supplemental oxygen might be able to start weaning him off as possible. The patient was sent home with oxygen at 2 L per nasal cannula is now up to 4 L per nasal cannula. According to the chest x-ray the patient has worsening pneumonia. He does have leukocytosis and antibiotics were started. Continue with inhalers. CTA reviewed has extensive bilateral right more than left pneumonia infiltrate likely from damage from his recent COVID Will cover atypicals by adding azithromycin as well Continue vancomycin Zosyn as ordered Oxygen requirement similar to yesterday (3) Anemia: Code(s): D64.9 - Anemia, unspecified Status: Acute Assessment and Plan: Unchanged Patient appears to be at his baseline. Continue to monitor. (4) COVID: Code(s): U07.1 - COVID-19 Status: Acute Assessment and Plan: Patient is convalescent Patient was treated for COVID his last admission approximately a month ago. (5) Hyponatremia: Code(s): E87.1 - Hypo-osmolality and hyponatremia Status: Acute Assessment and Plan: Continue to monitor Patient is chronically low. Could be related to his congestive heart failure. The patient stated he recently was started on diuretics as well. Continue diuretics (6) CHF (congestive heart failure), NYHA class I: Code(s): I50.9 - Heart failure, unspecified Status: Chronic Assessment and Plan: Patient with a positive balance of above 2. 5 L Patient will benefit from another day or so of diuresis, continue to monitor. Echocardiogram : 1. Complete two-dimensional, color flow and Doppler transthoracic echocardiogram is performed. 2. Left ventricular chamber dimension is normal. 3. Left ventricular systolic function is mildly reduced, estimated at 45-50%. 4. There is no increased left ventricular wall thickness. 5. The left ventricular diastolic function is grade I diastolic dysfunction. 6. The inferior wall, inferoseptal wall, basal inferolateral wall, and mid inferolateral wall are hypokinetic. 7. Left atrial chamber dimension is mildly enlarged delete that Continue with Lasix. Continue with Coreg. 20 mg Lasix IV daily (7) HTN (hypertension): Code(s): I10 - Essential (primary) hypertension Status: Chronic Assessment and Plan: On the lower side, continue to monitor Continue with
[2021-10-14 11:42] LABS: Vancomycin Trough 14.8 ug/mL (10.0-20.0)
[2021-10-14 11:46] LABS: Glucose Point of Care 108 mg/dl (65-105)
[2021-10-14 14:26] LABS: Blood Urea Nitrogen 9 mg/dL (9-20); Chloride 99 mmol/L (98-107); Glucose 137 mg/dL (65-110)
[2021-10-14 14:29] LABS: Anion Gap 0 mmol/L (8-16); Calcium 8.2 mg/dL (8.4-10.2); Carbon Dioxide 34 mmol/L (22-30); Estimated CRCL calculation 81 ml/min; Estimated Glomerular Filt Rate > 60; Potassium 3.8 mmol/L (3.4-5.0); Sodium 133 mmol/L (137-145)
[2021-10-14 15:43] LABS: Basophils Absolute Auto 0.1 K/mm3 (0.0-0.1); Basophils Percent Auto 0.6 % (0.2-1.2); Eosinophils Absolute Auto 0.3 K/mm3 (0-0.3); Eosinophils Percent Auto 3.2 % (0-4.4); Hematocrit 28.2 % (42.0-52.0); Immature Granulocyte Absolute 0.34 K/mm3 (0.00-0.031); Immature Granulocyte Percent A 4.3 % (0-0.5); Lymphocytes Absolute Auto 0.92 K/mm3 (0.9-3.2); Lymphocytes Percent Auto 11.7 % (18.3-44.2); Mean Corpuscular HGB Conc 31.9 g/dl (32-36); Mean Corpuscular Hemoglobin 32.7 pg (26-34); Mean Corpuscular Volume 102.5 fl (80-100); Monocytes Absolute Auto 0.7 K/mm3 (0.1-0.6); Monocytes Percent Auto 8.4 % (2.6-8.5); Neutrophils Absolute Auto 5.6 K/mm3 (1.3-6.7); Neutrophils Percent Auto 71.8 % (45.5-73.1); Platelet Count Result 209 k/mm3 (150-375); Red Blood Count 2.75 M/mm3 (4.6-6.20); Red Cell Distribution Width 14.6 % (11.5-14.5); White Blood Count 7.8 K/mm3 (4.5-10.0)
[2021-10-14] MEDS: traZODone HCL 50 MG TABLET 100 MG PO (20:21)
[2021-10-15] VITALS (12 sets, daily range): BP systolic 125–152; BP diastolic 54–62; PULSE 57–92; RESP 16–18; TEMP 36.4–36.8; O2SAT 94–97
[2021-10-15] MEDS: PIPERACILLIN/TAZOBACTAM SOD 4.5 GM in SODIUM CHLORIDE 0.9% IV 100 ML IVPB ×3 (05:25→17:35)
[2021-10-15] MEDS: ALBUTEROL SULFATE (*SP) AEROSOL 1 PUFF 2 PUFF INHALATION (08:08)
[2021-10-15] MEDS: FLUTICASONE/SALMETEROL 115-21 MCG INHALER 1 PUFF 2 PUFF INHALATION (08:09)
[2021-10-15] MEDS: UMECLIDINIUM BROMIDE 62.5 MCG ELLIPTA 1 PUFF INHALATION (08:09)
[2021-10-15] MEDS: SENNA/DOCUSATE SODIUM TABLET 1 TAB PO ×2 (08:30→16:41)
[2021-10-15] MEDS: ENOXAPARIN 40 MG/0.4 ML SYRINGE SUB-Q (08:30)
[2021-10-15] MEDS: ATORVASTATIN 40 MG TABLET 80 MG PO (08:30)
[2021-10-15] MEDS: guaiFENesin 12 HR 600 MG TABCR 1200 MG PO ×2 (08:31→20:33)
[2021-10-15] MEDS: OMEGA 3 POLYUNSAT FATTY ACIDS 1 GM CAP PO (08:31)
[2021-10-15] MEDS: PANTOPRAZOLE 40 MG TABLET PO (08:31)
[2021-10-15] MEDS: FINASTERIDE 5 MG TABLET PO (08:31)
[2021-10-15] MEDS: buPROPion HCL SR (12 HR) 150 MG TAB PO ×2 (08:31→20:40)
[2021-10-15] MEDS: DOCUSATE SODIUM 100 MG CAPSULE PO ×2 (08:31→16:41)
[2021-10-15] MEDS: TAMSULOSIN HCL 0.4 MG CAPSULE PO (08:32)
[2021-10-15] MEDS: ASPIRIN 81 MG ENTERIC TABLET PO (08:32)
[2021-10-15] MEDS: SERTRALINE HCL 50 MG TABLET PO (08:32)
[2021-10-15] MEDS: MAGNESIUM HYDROXIDE SUSP 30 ML UDC PO (08:33)
[2021-10-15] MEDS: Linaclotide [Linzess] 145 mcg capsule 145 EACH PO (08:37)
[2021-10-15] MEDS: MORPHINE SULFATE (*CRX) 60 MG TABCR PO ×2 (08:45→20:39)
--- NOTE | 2021-10-15 11:50 | PM.IMPN ---
Progress Note: A&P Assessment and Plan (1) Pneumonia: Code(s): J18.9 - Pneumonia, unspecified organism <Lita Rowland PA-C - Last Filed: 10/15/21 14:02> Status: Acute <Lita Rowland PA-C - Last Filed: 10/15/21 14:02> Assessment and Plan: The patient is a 76-year-old male patient who was discharged from this hospital on 09/16/2021 with COVID pneumonia with home oxygen at 2 L per nasal cannula and treated with prednisone and baricitinib with azithromycin and Rocephin. The patient came to the hospital today for evaluation of increased shortness of breath one night prior. When he was evaluated by EMS he was found have a pulse oximeter of 80% on room air. Patient's oxygen level was increased to 4 L per nasal cannula and his O2 saturations came up to 94%. Patient has increased nonproductive cough and weakness. Patient's chest x-ray was read as worsened airspace opacities in the mid and lower lung zones consistent with pneumonia. Patient's white count was noted to be 22,300. H&H 10.1 and 30.5. His potassium was found to be 3.2 with sodium of 132. BNP is noted to be 1280. Chest x-ray on admission showed Worsened airspace opacities in the mid and lower lung zones, consistent with pneumonia. CTA Chest showed No evidence of pulmonary embolism, extensive bilateral pulmonary infiltrates and likely reactive hilar or mediastinal adenopathy, small right pleural effusion. Venous Dopplers showed No lower extremity deep venous thrombosis bilaterally. Probable small right calf hematoma seroma. The patient is being admitted to observation status and broad spectrum IV abx for Post COVID/Hospital Acquired Pneumonia. Blood cultures from arrival showed no growth to date Sputum cultures from arrival is growing Pseudomonas aeruginosa with sensitivities to Levaquin. Also showing yeast isolation. Due to the patient's acute on chronic respiratory failure from recent COVID-19 infection, broad-spectrum antibiotics and sputum culture I will consult pulmonology for further input. I did talk to the bicycle fitter about the patient who will see the patient later today Will continue with IV vanc and Zosyn (#6) and Azithromycin (#5) until pulmonology recommends deescalating Continue inhalers Appreciate pulmonology is input Continue monitoring. <Lita L. Roser, PA-C - Last Filed: 10/15/21 14:02> (2) Acute respiratory failure: Code(s): J96.00 - Acute respiratory failure, unspecified whether with hypoxia or hypercapnia <Lita L. Roser, PA-C - Last Filed: 10/15/21 14:02> Status: Acute <Lita L. Roser, PA-C - Last Filed: 10/15/21 14:02> Assessment and Plan: Acute on chronic respiratory failure due to COVID 19 infection and hospital so seated pneumonia See above. <Lita L. Roser, PA-C - Last Filed: 10/15/21 14:02> (3) Anemia: Code(s): D64.9 - Anemia, unspecified <Lita L. Roser, PA-C - Last Filed: 10/15/21 14:02> Status: Acute <Lita L. Roser, PA-C - Last Filed: 10/15/21 14:02> Assessment and Plan: H&H has been stable during this admission. No signs of acute bleeding. Continue to monitor. <Lita L. Roser, PA-C - Last Filed: 10/15/21 14:02> (4) COVID: Code(s): U07.1 - COVID-19 <Lita L. Roser, PA-C - Last Filed: 10/15/21 14:02> Status: Acute <Lita L. Roser, PA-C - Last Filed: 10/15/21 14:02> Assessment and Plan: Recent COVID 1 month ago. No active COVID at this time. 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 <Lita Rowland PA-C - Last Filed: 10/15/21 14:02> (5) Hyponatremia: Code(s): E87.1 - Hypo-osmolality and hyponatremia <Lita Rowland PA-C - Last Filed: 10/15/21 14:02>
--- NOTE | 2021-10-15 16:28 | PM.CNPUL ---
Assessment and Plan Assessment and plan (1) Acute respiratory failure: Qualifiers: Respiratory failure complication: hypoxia Qualified Code(s): J96.01 - Acute respiratory failure with hypoxia Code(s): J96.00 - Acute respiratory failure, unspecified whether with hypoxia or hypercapnia Status: Acute Assessment and Plan: [age] year old man hospitalized with COVID 19 infection approximately 6 weeks ago, discharged home on supplemental oxygen, with progressively increasing shortness of breath and hypoxemia related to development of new Extensivebilateral infiltrates with evidence of consolidation bilaterally more so in the left lower lobe, volume loss on the right lung probably due to development of fibrosis. patient has clinically improved with decrease in his white cell count although he continues to have shortness of breath and hypoxemia. The chest CT images have progressed from small airspace infiltrates bilaterally approximately 6 weeks ago to extensive bilateral infiltrates with evidence of consolidation and volume loss. Over the last 6 weeks the patient has not had signs to suggest ongoing infection but only complains of shortness of breath and worsening hypoxemia. He has received antibiotics for possible pneumonia. it is not clear whether this is related to Pseudomonas which grew in the sputum. It is very likely that these infiltrates represent noninfectious pulmonary process like post COVID organizing pneumonia. I would discontinue all antibiotics and continue with levofloxacin for now. Will consider bronchoscopy with BAL. (2) Post covid-19 condition, unspecified: Code(s): U09.9 - Post COVID-19 condition, unspecified Status: Acute (3) Pneumonia: Qualifiers: Laterality: bilateral Lung location: lower lobe of lung Pneumonia type: due to unspecified organism Qualified Code(s): J18.9 - Pneumonia, unspecified organism Code(s): J18.9 - Pneumonia, unspecified organism Status: Acute (4) COPD (chronic obstructive pulmonary disease): Qualifiers: COPD type: unspecified COPD Qualified Code(s): J44.9 - Chronic obstructive pulmonary disease, unspecified Code(s): J44.9 - Chronic obstructive pulmonary disease, unspecified Status: Chronic History of Present Illness History of Present Illness Consult date: 10/16/21 Chief complaint: Severe Sepsis, Pneumonia,Acute Respiratory Failure Narrative: This 76-year-old man presented with 1 month history of progressively increasing shortness of breath and hypoxemia. the patient was in his usual state of health until approximately 2-1/2 months ago when he was hospitalized with temperature 103? in weakness. The patient was test is positive for COVID and was treated with a course of antibiotics as chest x-ray showed a small airspace infiltrates. The patient was discharged home but did not get any better. Approximately 1 month later, he again presented with increasing weakness and fatigue. He was now tested positive for COVID infection. His chest images including a chest CT done on September 03 showed very small infiltrates bilaterally. The patient was discharged home following treatment for COVID infection and was placed on supplemental oxygen at 2 liters/minute. Following discharge from the hospital, the patient continues to have shortness of breath and weakness. He noticed that despite using oxygen, his oxygen saturation would drop below 90%. During the same time, he developed lower extremity edema and was started on a diuretic. Approximately 1 week ago, the patient presented again to the hospital with increasing shortness of breath, worsening hypoxemia despite increasing oxygen flow and lower extremity edema. He stated that on the day prior to hospital admission he had some chills while at home. When evaluated in the emergency room he had no fever. The patient was treated with antibiotics for possible pneum
[2021-10-15 17:56] LABS: D Dimer 1.47 ug/mL (<0.48)
[2021-10-15 18:08] LABS: INR 1.2; Prothrombin Time 15.1 Seconds (11.1-14.7)
[2021-10-15 18:13] LABS: CRP 11.4 mg/dL (<1.0)
--- NOTE | 2021-10-15 19:33 | PC.NURSE ---
Report called to Lavinia Bucio RN on 3 Med/Surg.
--- NOTE | 2021-10-15 19:50 | PC.NURSE ---
Transferred via bed to . Voiding well via urinal. Oxygen on at 2Liters.Son aware of transfer.
--- NOTE | 2021-10-15 19:53 | PC.NURSE ---
Transfer received from 2 medical. Report received from MARJAN Sommers.
[2021-10-15] MEDS: traZODone HCL 50 MG TABLET 100 MG PO (20:34)
[2021-10-16] VITALS (7 sets, daily range): BP systolic 142–154; BP diastolic 56–70; PULSE 71–85; RESP 18–24; TEMP 36.5–36.9; O2SAT 92–97
[2021-10-16 00:53] LABS: Vancomycin Trough 19.7 ug/mL (10.0-20.0)
[2021-10-16] MEDS: PIPERACILLIN/TAZOBACTAM SOD 4.5 GM in SODIUM CHLORIDE 0.9% IV 100 ML IVPB ×3 (01:48→15:03)
[2021-10-16 06:41] LABS: Anion Gap 1 mmol/L (8-16); Blood Urea Nitrogen 5 mg/dL (9-20); Calcium 8.5 mg/dL (8.4-10.2); Carbon Dioxide 34 mmol/L (22-30); Chloride 96 mmol/L (98-107); Estimated CRCL calculation 81 ml/min; Estimated Glomerular Filt Rate > 60; Glucose 104 mg/dL (65-110); Magnesium 1.7 mg/dL (1.6-2.3); Potassium 3.5 mmol/L (3.4-5.0); Sodium 131 mmol/L (137-145)
[2021-10-16 06:55] LABS: Hemoglobin 9.4 g/dL (14.0-18.0); Mean Corpuscular HGB Conc 32.4 g/dl (32-36); Mean Corpuscular Volume 101.8 fl (80-100); Mean Platelet Volume 10.5 fl (7.4-10.4); Platelet Count Result 225 k/mm3 (150-375); Red Blood Count 2.85 M/mm3 (4.6-6.20); Red Cell Distribution Width 14.7 % (11.5-14.5); White Blood Count 9.3 K/mm3 (4.5-10.0)
[2021-10-16] MEDS: POTASSIUM CHLORIDE 20 MEQ PACKET (FOR LIQUID) 40 MEQ PO (09:25)
[2021-10-16] MEDS: buPROPion HCL SR (12 HR) 150 MG TAB PO ×2 (10:00→20:45)
[2021-10-16] MEDS: TAMSULOSIN HCL 0.4 MG CAPSULE PO (10:00)
[2021-10-16] MEDS: OMEGA 3 POLYUNSAT FATTY ACIDS 1 GM CAP PO (10:01)
[2021-10-16] MEDS: FINASTERIDE 5 MG TABLET PO (10:01)
[2021-10-16] MEDS: ENOXAPARIN 40 MG/0.4 ML SYRINGE SUB-Q (10:01)
[2021-10-16] MEDS: guaiFENesin 12 HR 600 MG TABCR 1200 MG PO ×2 (10:01→20:46)
[2021-10-16] MEDS: ATORVASTATIN 40 MG TABLET 80 MG PO (10:02)
[2021-10-16] MEDS: ASPIRIN 81 MG ENTERIC TABLET PO (10:02)
[2021-10-16] MEDS: SENNA/DOCUSATE SODIUM TABLET 1 TAB PO ×2 (10:02→17:07)
[2021-10-16] MEDS: SERTRALINE HCL 50 MG TABLET PO (10:02)
[2021-10-16] MEDS: PANTOPRAZOLE 40 MG TABLET PO (10:02)
[2021-10-16] MEDS: MAGNESIUM HYDROXIDE SUSP 30 ML UDC PO (10:03)
[2021-10-16] MEDS: Linaclotide [Linzess] 145 mcg capsule 145 EACH PO (10:03)
[2021-10-16] MEDS: DOCUSATE SODIUM 100 MG CAPSULE PO ×2 (10:03→17:06)
[2021-10-16] MEDS: MORPHINE SULFATE (*CRX) 60 MG TABCR PO ×2 (10:06→20:45)
--- NOTE | 2021-10-16 12:44 | PM.PNPUL ---
Progress Note: A&P Assessment and Plan (1) Acute respiratory failure: Qualifiers: Respiratory failure complication: hypoxia Qualified Code(s): J96.01 - Acute respiratory failure with hypoxia Code(s): J96.00 - Acute respiratory failure, unspecified whether with hypoxia or hypercapnia Status: Acute Assessment and Plan: [age] year old man hospitalized with COVID 19 infection approximately 6 weeks ago, discharged home on supplemental oxygen, with progressively increasing shortness of breath and hypoxemia related to development of new Extensive bilateral infiltrates with evidence of consolidation bilaterally more so in the left lower lobe, volume loss on the right lung probably due to development of fibrosis. patient has clinically improved with decrease in his white cell count although he continues to have shortness of breath and hypoxemia. The chest CT images have progressed from small airspace infiltrates bilaterally approximately 6 weeks ago to extensive bilateral infiltrates with evidence of consolidation and volume loss. Over the last 6 weeks the patient has not had signs to suggest ongoing infection but only complains of shortness of breath and worsening hypoxemia. Recent video swallow test was abnormal. He has unexplained coagulopathy, CRP has been elevated. I would discontinue current antibiotics and start the patient on levofloxacin IV for possible pneumonia. The left lower lobe consolidation with air bronchogram could be related to aspiration pneumonitis given the abnormal swallow test. Alternatively this could be organizing pneumonia related to recent COVID 19 infection. I would consult speech pathologist regarding dietary changes for dysphagia. Will repeat chest x-ray today and monitor CRP, D-dimers, and PT INR daily. Will consider bronchoscopy with BAL if no further improvement over the next for 5 days. The case was discussed with the hospitalist. (2) Acute respiratory failure with hypoxia: Code(s): J96.01 - Acute respiratory failure with hypoxia Status: Acute (3) Pneumonia: Code(s): J18.9 - Pneumonia, unspecified organism Status: Acute (4) COPD (chronic obstructive pulmonary disease): Qualifiers: COPD type: unspecified COPD Qualified Code(s): J44.9 - Chronic obstructive pulmonary disease, unspecified Code(s): J44.9 - Chronic obstructive pulmonary disease, unspecified Status: Chronic (5) Person under investigation for COVID-19: Code(s): Z20.822 - Contact with and (suspected) exposure to COVID-19 Status: Acute Subjective Date/time seen: 10/16/21 12:44 patient has no new respiratory symptoms. He has been afebrile. Remains on supplemental oxygen 2 liters/minute. CRP elevated. Review of Systems Review of Systems: All systems reviewed & are unremarkable except as noted in HPI and below (HPI) Exam Narrative: GENERAL APPEARANCE: Well developed, well nourished, alert and cooperative, and appears to be in no acute distress while breathing supplemental oxygen SKIN: Inspection of the skin reveals no rashes, ulcerations or petechiae. HEENT: Sclerae anicteric and conjunctivae pink and moist. Extraocular movements were intact and pupils were equal, round, and reactive to light. The oral mucosa, hard and soft palate, tongue and posterior pharynx were normal. NECK: Supple. There was no thyroid enlargement, and no tenderness, or masses were felt. CHEST: Normal AP diameter and normal contour without any kyphoscoliosis. LUNGS: Auscultation of the lungs revealed crackles at bases, more on right CARDIAC: There was a regular rate and rhythm without any murmurs, gallops, rubs. ABDOMEN: Soft and nontender with normal bowel sounds. There was no organomegaly. LYMPH NODES: No lymphadenopathy was appreciated in the neck. EXTREMITIES: No cyanosis, or clubbing; 1+ pedal edema. NEUROLOGIC: Alert and oriented x 3. Normal affect. Objective D
[2021-10-16 18:14] LABS: SARS-CoV-2 RNA PCR Negative
[2021-10-16] MEDS: ALBUTEROL SULFATE (*SP) AEROSOL 1 PUFF 2 PUFF INHALATION (20:35)
[2021-10-16] MEDS: FLUTICASONE/SALMETEROL 115-21 MCG INHALER 1 PUFF 2 PUFF INHALATION (20:35)
[2021-10-16] MEDS: traZODone HCL 50 MG TABLET 100 MG PO (20:46)
--- NOTE | 2021-10-16 21:43 | PM.IMPN ---
Progress Note: A&P Assessment and Plan (1) Pneumonia: Qualifiers: Laterality: bilateral Lung location: lower lobe of lung Pneumonia type: due to unspecified organism Qualified Code(s): J18.9 - Pneumonia, unspecified organism Code(s): J18.9 - Pneumonia, unspecified organism Status: Acute Assessment and Plan: The patient is a 76-year-old male patient who was discharged from this hospital on 09/16/2021 with COVID pneumonia with home oxygen at 2 L per nasal cannula and treated with prednisone and baricitinib with azithromycin and Rocephin. The patient came to the hospital today for evaluation of increased shortness of breath one night prior. When he was evaluated by EMS he was found have a pulse oximeter of 80% on room air. Patient's oxygen level was increased to 4 L per nasal cannula and his O2 saturations came up to 94%. Patient has increased nonproductive cough and weakness. Patient's chest x-ray was read as worsened airspace opacities in the mid and lower lung zones consistent with pneumonia. Patient's white count was noted to be 22,300. H&H 10.1 and 30.5. His potassium was found to be 3.2 with sodium of 132. BNP is noted to be 1280. Chest x-ray on admission showed Worsened airspace opacities in the mid and lower lung zones, consistent with pneumonia. CTA Chest showed No evidence of pulmonary embolism, extensive bilateral pulmonary infiltrates and likely reactive hilar or mediastinal adenopathy, small right pleural effusion. Venous Dopplers showed No lower extremity deep venous thrombosis bilaterally. Probable small right calf hematoma seroma. The patient is being admitted to observation status and broad spectrum IV abx for Post COVID/Hospital Acquired Pneumonia. Blood cultures from arrival showed no growth to date Sputum cultures from arrival is growing Pseudomonas aeruginosa with sensitivities to Levaquin. Also showing yeast isolation. Due to the patient's acute on chronic respiratory failure from recent COVID-19 infection, broad-spectrum antibiotics and sputum culture I will consult pulmonology for further input. I did talk to the scientologist about the patient who will see the patient later today Discontinue IV vanc and Zosyn, and Azithromycin Levofloxacin 750 mg IV #1 Repeat COVID 19 today CRP in AM Continue inhalers Appreciate pulmonology is input Continue monitoring. (2) Acute respiratory failure: Qualifiers: Respiratory failure complication: hypoxia Qualified Code(s): J96.01 - Acute respiratory failure with hypoxia Code(s): J96.00 - Acute respiratory failure, unspecified whether with hypoxia or hypercapnia Status: Acute Assessment and Plan: Acute on chronic respiratory failure due to COVID 19 infection and hospital so seated pneumonia See above. (3) Anemia: Code(s): D64.9 - Anemia, unspecified Status: Acute Assessment and Plan: H&H has been stable during this admission. No signs of acute bleeding. Continue to monitor. (4) COVID: Code(s): U07.1 - COVID-19 Status: Acute Assessment and Plan: Recent COVID 1 month ago. No active COVID at this time. 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 (5) Hyponatremia: Code(s): E87.1 - Hypo-osmolality and hyponatremia Status: Acute Assessment and Plan: Patient is chronically low, this morning 133, stable. Could be related to his congestive heart failure. The patient stated he recently was started on diuretics as well. Continue monitoring. (6) CHF (congestive heart failure), NYHA class I: Code(s): I50.9 - Heart failure, unspecified Status: Chronic Assessment and Plan: Mild acu
[2021-10-17] VITALS: BP 127/49; PULSE 83; RESP 18; TEMP 36.6; O2SAT 97
[2021-10-17 04:00] VITALS: BP 135/57; PULSE 71; RESP 18; TEMP 36.3; O2SAT 98
[2021-10-17 06:48] LABS: Basophils Absolute Auto 0.1 K/mm3 (0.0-0.1); Basophils Percent Auto 0.7 % (0.2-1.2); Eosinophils Absolute Auto 0.3 K/mm3 (0-0.3); Hematocrit 27.2 % (42.0-52.0); Hemoglobin 8.7 g/dL (14.0-18.0); Immature Granulocyte Absolute 0.33 K/mm3 (0.00-0.031); Immature Granulocyte Percent A 4.8 % (0-0.5); Lymphocytes Absolute Auto 1.01 K/mm3 (0.9-3.2); Lymphocytes Percent Auto 14.7 % (18.3-44.2); Mean Corpuscular Hemoglobin 31.8 pg (26-34); Mean Corpuscular Volume 99.3 fl (80-100); Mean Platelet Volume 10.3 fl (7.4-10.4); Monocytes Absolute Auto 0.7 K/mm3 (0.1-0.6); Monocytes Percent Auto 10.8 % (2.6-8.5); Neutrophils Absolute Auto 4.4 K/mm3 (1.3-6.7); Platelet Count Result 212 k/mm3 (150-375); Red Blood Count 2.74 M/mm3 (4.6-6.20); Red Cell Distribution Width 15.1 % (11.5-14.5); White Blood Count 6.9 K/mm3 (4.5-10.0)
[2021-10-17 07:07] LABS: Anion Gap -1 mmol/L (8-16); Blood Urea Nitrogen 5 mg/dL (9-20); CRP 7.9 mg/dL (<1.0); Calcium 8.6 mg/dL (8.4-10.2); Carbon Dioxide 38 mmol/L (22-30); Chloride 99 mmol/L (98-107); Estimated CRCL calculation 72 ml/min; Estimated Glomerular Filt Rate > 60; Glucose 88 mg/dL (65-110); Potassium 3.7 mmol/L (3.4-5.0); Sodium 136 mmol/L (137-145)
--- NOTE | 2021-10-17 07:14 | PM.IMPN ---
Progress Note: A&P Assessment and Plan (1) Pneumonia: Qualifiers: Laterality: bilateral Lung location: lower lobe of lung Pneumonia type: due to unspecified organism Qualified Code(s): J18.9 - Pneumonia, unspecified organism Code(s): J18.9 - Pneumonia, unspecified organism Status: Acute Assessment and Plan: Discharged from this hospital on 09/16/2021 with COVID pneumonia with home oxygen at 2 L per nasal cannula and treated with prednisone and baricitinib with azithromycin and Rocephin. Readmittend 09/17 due to increasing oxygen requirements w/ cxr w/ worsened airspace opacities in the mid and lower lung zones consistent with pneumonia. Leukocytosis 22 w/ H&H 10.1 and 30.5. K .2 and Na 12 w/ BNP 1280. CTA chest r/o PE and showed extensive bilateral pulmonary infiltrates and likely reactive hilar or mediastinal adenopathy, small right pleural effusion. No DVT on ultrasound. 10/10 BCX negative, sputum cx w/ pseudomonas. Vancomycin, zosyn and azithromycin were discontinued 10/16 and levofloxacin started. COVID 19 negative from 10/15. CRP 7.9. -Levofloxacin 750 mg IV #2 -Continue inhalers -Appreciate pulmonology recs -Swallow study pending (2) Acute respiratory failure: Qualifiers: Respiratory failure complication: hypoxia Qualified Code(s): J96.01 - Acute respiratory failure with hypoxia Code(s): J96.00 - Acute respiratory failure, unspecified whether with hypoxia or hypercapnia Status: Acute Assessment and Plan: Acute on chronic respiratory failure due to COVID 19 infection and hospital so seated pneumonia See above. (3) Anemia: Code(s): D64.9 - Anemia, unspecified Status: Acute Assessment and Plan: H&H has been stable during this admission. No signs of acute bleeding. Continue to monitor. (4) COVID: Code(s): U07.1 - COVID-19 Status: Acute Assessment and Plan: Recent COVID 1 month ago. No active COVID at this time. 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 (5) Hyponatremia: Code(s): E87.1 - Hypo-osmolality and hyponatremia Status: Acute Assessment and Plan: Likely 2/2 to pneumonia. Improving. (6) CHF (congestive heart failure), NYHA class I: Code(s): I50.9 - Heart failure, unspecified Status: Chronic Assessment and Plan: Mild acute CHF exacerbation w/ BNP peaking at 1430 wHFrEF w/ EF 45-50% w/ grade I diastolic dysfunction. With LE swelling today will give a dose of furosemide and replete potassium. -Furosemide 20 mg IV x1 -Potassium chloride 40 mg po X1 -Plan to restart home furosemide 40 mg po daily tomorrow (7) HTN (hypertension): Code(s): I10 - Essential (primary) hypertension Status: Chronic Assessment and Plan: BP controlled on carvedilol 12.5 mg BID and losartan 50 mg po daily at home. -Continue home medications (8) COPD (chronic obstructive pulmonary disease): Qualifiers: COPD type: unspecified COPD Qualified Code(s): J44.9 - Chronic obstructive pulmonary disease, unspecified Code(s): J44.9 - Chronic obstructive pulmonary disease, unspecified Status: Chronic Assessment and Plan: Continue with Symbicort and albuterol inhaler. Continue with Spiriva. -Continue home inhalers -Appreciate Pulmonolgy recs (9) BPH (benign prostatic hyperplasia): Code(s): N40.0 - Benign prostatic hyperplasia without lower urinary tract symptoms Status: Chronic Assessment and Plan: No signs of urinary retention -Continue finasteride and tamsulosin (10) GERD (gastroesophageal reflux disease): Code(s): K21.9 - Gastro-esophageal reflux disease without esophagitis Status: Chronic Assessment and Plan: Controlled with pantopr
[2021-10-17 07:30] LABS: D Dimer 1.29 ug/mL (<0.48)
[2021-10-17 08:00] VITALS: O2SAT 96
[2021-10-17] MEDS: guaiFENesin 12 HR 600 MG TABCR 1200 MG PO ×2 (09:17→22:06)
[2021-10-17] MEDS: MAGNESIUM HYDROXIDE SUSP 30 ML UDC PO (09:17)
[2021-10-17] MEDS: MORPHINE SULFATE (*CRX) 60 MG TABCR PO ×2 (09:17→22:05)
[2021-10-17] MEDS: OMEGA 3 POLYUNSAT FATTY ACIDS 1 GM CAP PO (09:17)
[2021-10-17] MEDS: TAMSULOSIN HCL 0.4 MG CAPSULE PO (09:17)
[2021-10-17] MEDS: PANTOPRAZOLE 40 MG TABLET PO (09:17)
[2021-10-17] MEDS: SERTRALINE HCL 50 MG TABLET PO (09:17)
[2021-10-17] MEDS: DOCUSATE SODIUM 100 MG CAPSULE PO ×2 (09:18→17:55)
[2021-10-17] MEDS: ENOXAPARIN 40 MG/0.4 ML SYRINGE SUB-Q (09:18)
[2021-10-17] MEDS: ASPIRIN 81 MG ENTERIC TABLET PO (09:18)
[2021-10-17] MEDS: buPROPion HCL SR (12 HR) 150 MG TAB PO ×2 (09:18→22:42)
[2021-10-17] MEDS: FINASTERIDE 5 MG TABLET PO (09:18)
[2021-10-17] MEDS: Linaclotide [Linzess] 145 mcg capsule 145 EACH PO (09:18)
[2021-10-17] MEDS: SENNA/DOCUSATE SODIUM TABLET 1 TAB PO ×2 (09:18→17:55)
[2021-10-17] MEDS: ATORVASTATIN 40 MG TABLET 80 MG PO (09:18)
[2021-10-17] MEDS: ALBUTEROL SULFATE (*SP) AEROSOL 1 PUFF 2 PUFF INHALATION ×2 (09:30→20:15)
[2021-10-17] MEDS: FLUTICASONE/SALMETEROL 115-21 MCG INHALER 1 PUFF 2 PUFF INHALATION ×2 (09:31→20:14)
--- NOTE | 2021-10-17 12:07 | PM.PNPUL ---
Progress Note: A&P Assessment and Plan (1) Acute respiratory failure: Qualifiers: Respiratory failure complication: hypoxia Qualified Code(s): J96.01 - Acute respiratory failure with hypoxia Code(s): J96.00 - Acute respiratory failure, unspecified whether with hypoxia or hypercapnia Status: Acute Assessment and Plan: Respiratory status stable over the last 48 hours, afebrile with normal white cell count and some gas exchange improvement. CRP trending down. He is finishing a workup for dysphagia. Continue with current regimen, out of bed to chair. Consider switching to IV Lasix regarding increasing lower extremity edema. (2) Acute respiratory failure with hypoxia: Code(s): J96.01 - Acute respiratory failure with hypoxia Status: Acute (3) Pneumonia: Code(s): J18.9 - Pneumonia, unspecified organism Status: Acute (4) COPD (chronic obstructive pulmonary disease): Qualifiers: COPD type: unspecified COPD Qualified Code(s): J44.9 - Chronic obstructive pulmonary disease, unspecified Code(s): J44.9 - Chronic obstructive pulmonary disease, unspecified Status: Chronic (5) Person under investigation for COVID-19: Code(s): Z20.822 - Contact with and (suspected) exposure to COVID-19 Status: Acute Subjective Date/time seen: 10/17/21 12:07 Patient without any new respiratory symptoms. Remaining afebrile. Current oxygen flow 2 liters/minute with O2 sat at 98%. has developed edema in the lower extremities. Review of Systems Review of Systems: All systems reviewed & are unremarkable except as noted in HPI and below (HPI) Exam Narrative: GENERAL APPEARANCE: Well developed, well nourished, alert and cooperative, and appears to be in no acute distress while breathing supplemental oxygen SKIN: Inspection of the skin reveals no rashes, ulcerations or petechiae. HEENT: Sclerae anicteric and conjunctivae pink and moist. Extraocular movements were intact and pupils were equal, round, and reactive to light. The oral mucosa, hard and soft palate, tongue and posterior pharynx were normal. NECK: Supple. There was no thyroid enlargement, and no tenderness, or masses were felt. CHEST: Normal AP diameter and normal contour without any kyphoscoliosis. LUNGS: Auscultation of the lungs revealed crackles at bases, more on right CARDIAC: There was a regular rate and rhythm without any murmurs, gallops, rubs. ABDOMEN: Soft and nontender with normal bowel sounds. There was no organomegaly. LYMPH NODES: No lymphadenopathy was appreciated in the neck. EXTREMITIES: No cyanosis, or clubbing; 2+ pedal edema. NEUROLOGIC: Alert and oriented x 3. Normal affect. Objective Data Vital Signs Vital Signs: Vital Signs - 24 hr 10/16/21 16:00 10/16/21 20:00 10/16/21 20:36 Temperature 36.7 C 36.5 C Pulse Rate 74 79 71 Respiratory Rate 24 H 18 Blood Pressure 147/56 H 154/66 H Pulse Oximetry 94 97 96 10/16/21 20:46 10/17/21 00:00 10/17/21 04:00 Temperature 36.6 C 36.3 C L Pulse Rate 83 71 Respiratory Rate 18 18 Blood Pressure 127/49 L 135/57 L Pulse Oximetry 96 97 98 Intake/Output Intake/Output: Intake & Output 10/14/21 10/15/21 10/16/21 10/17/21 23:59 23:59 23:59 23:59 Intake Total 3340 3590 2870 990 Output Total 2800 3000 1150 1375 Balance 293 770 5885 -385 Meds/Results Medications: Active Medications Generic Name Dose Route Start Last Admin Trade Name Freq PRN Reason Stop Dose Admin Acetaminophen 650 mg 10/10/21 21:57 Acetaminophen 325 Mg Tablet PO Q4H PRN Mild Pain Albuterol 2 puff 10/11/21 08:00 10/17/21 09:30 Albuterol Sulfate (*Sp) Aerosol 1 Puff INHALATION 2 puff Q12HRT GIOVANNY Administration Aspirin 81 mg 10/11/21 09:00 10/17/21 09:18 Aspirin 81 Mg Enteric Tablet PO 81 mg DAILY GIOVANNY Administration Atorvastatin Calcium 80 mg 10/11/21 09:00 10/17/21 09:18 Atorvastatin 40 Mg Tablet
--- NOTE | 2021-10-17 12:49 | PCSTNOTE ---
Please refer to the repeat Modified Barium Swallow Evaluation in the EMR.
[2021-10-17 14:00] VITALS: BP 127/69; PULSE 82; RESP 20; TEMP 36.8; O2SAT 96
[2021-10-17] MEDS: FUROSEMIDE INJ 40 MG/4 ML VIAL 20 MG IM (17:54)
[2021-10-17] MEDS: POTASSIUM CHLORIDE 20 MEQ TABLET 40 MEQ PO (17:54)
[2021-10-17 20:19] VITALS: PULSE 75; O2SAT 95
[2021-10-17 21:00] VITALS: RESP 16; O2SAT 97
[2021-10-17] MEDS: traZODone HCL 50 MG TABLET 100 MG PO (22:06)
[2021-10-18] VITALS: BP 121/45; PULSE 63; RESP 16; TEMP 36.1; O2SAT 97
[2021-10-18 06:25] VITALS: BP 145/67; PULSE 75; RESP 16; TEMP 36.1; O2SAT 96
[2021-10-18 07:35] LABS: Basophils Percent Auto 0.6 % (0.2-1.2); Eosinophils Absolute Auto 0.2 K/mm3 (0-0.3); Hematocrit 29.5 % (42.0-52.0); Hemoglobin 9.3 g/dL (14.0-18.0); Immature Granulocyte Percent A 5.7 % (0-0.5); Lymphocytes Absolute Auto 1.11 K/mm3 (0.9-3.2); Mean Corpuscular HGB Conc 31.5 g/dl (32-36); Mean Corpuscular Hemoglobin 32.2 pg (26-34); Mean Corpuscular Volume 102.1 fl (80-100); Mean Platelet Volume 9.9 fl (7.4-10.4); Monocytes Absolute Auto 0.6 K/mm3 (0.1-0.6); Monocytes Percent Auto 11.9 % (2.6-8.5); Neutrophils Percent Auto 56.8 % (45.5-73.1); Platelet Count Result 209 k/mm3 (150-375); Red Blood Count 2.89 M/mm3 (4.6-6.20); Red Cell Distribution Width 15.5 % (11.5-14.5); White Blood Count 5.3 K/mm3 (4.5-10.0)
[2021-10-18] MEDS: FLUTICASONE/SALMETEROL 115-21 MCG INHALER 1 PUFF 2 PUFF INHALATION ×3 (07:46→20:55)
[2021-10-18] MEDS: UMECLIDINIUM BROMIDE 62.5 MCG ELLIPTA 1 PUFF INHALATION (07:46)
[2021-10-18 07:54] LABS: Anion Gap 0 mmol/L (8-16); Blood Urea Nitrogen 5 mg/dL (9-20); CRP 7.3 mg/dL (<1.0); Calcium 8.9 mg/dL (8.4-10.2); Carbon Dioxide 39 mmol/L (22-30); Chloride 98 mmol/L (98-107); Estimated CRCL calculation 72 ml/min; Estimated Glomerular Filt Rate > 60; Glucose 88 mg/dL (65-110); Potassium 3.9 mmol/L (3.4-5.0); Sodium 137 mmol/L (137-145)
[2021-10-18 08:00] VITALS: O2SAT 96
[2021-10-18] MEDS: MORPHINE SULFATE (*CRX) 60 MG TABCR PO ×2 (08:23→20:23)
[2021-10-18] MEDS: Linaclotide [Linzess] 145 mcg capsule 145 EACH PO (08:24)
[2021-10-18] MEDS: PANTOPRAZOLE 40 MG TABLET PO (08:24)
[2021-10-18] MEDS: ASPIRIN 81 MG ENTERIC TABLET PO (08:24)
[2021-10-18] MEDS: FUROSEMIDE 40 MG TABLET PO (08:24)
[2021-10-18] MEDS: TAMSULOSIN HCL 0.4 MG CAPSULE PO (08:24)
[2021-10-18] MEDS: FINASTERIDE 5 MG TABLET PO (08:24)
[2021-10-18] MEDS: DOCUSATE SODIUM 100 MG CAPSULE PO ×2 (08:24→16:03)
[2021-10-18] MEDS: OMEGA 3 POLYUNSAT FATTY ACIDS 1 GM CAP PO (08:25)
[2021-10-18] MEDS: buPROPion HCL SR (12 HR) 150 MG TAB PO ×2 (08:25→20:24)
[2021-10-18] MEDS: guaiFENesin 12 HR 600 MG TABCR 1200 MG PO ×2 (08:25→20:26)
[2021-10-18] MEDS: ATORVASTATIN 40 MG TABLET 80 MG PO (08:25)
[2021-10-18] MEDS: SENNA/DOCUSATE SODIUM TABLET 1 TAB PO ×2 (08:25→16:02)
[2021-10-18] MEDS: ENOXAPARIN 40 MG/0.4 ML SYRINGE SUB-Q (08:25)
[2021-10-18] MEDS: SERTRALINE HCL 50 MG TABLET PO (08:25)
[2021-10-18] MEDS: MAGNESIUM HYDROXIDE SUSP 30 ML UDC PO (08:27)
--- NOTE | 2021-10-18 09:49 | PM.PNPUL ---
Progress Note: A&P Assessment and Plan (1) Acute respiratory failure: Qualifiers: Respiratory failure complication: hypoxia Qualified Code(s): J96.01 - Acute respiratory failure with hypoxia Code(s): J96.00 - Acute respiratory failure, unspecified whether with hypoxia or hypercapnia Status: Acute Assessment and Plan: Respiratory status stable over the last 48 hours, afebrile with normal white cell count and some gas exchange improvement. CRP unchanged. Following speech pathology instructions regarding dysphagia. Continue with current regimen, out of bed to chair. Monitor respiratory status, will repeat chest x-ray over the weekend. (2) Acute respiratory failure with hypoxia: Code(s): J96.01 - Acute respiratory failure with hypoxia Status: Acute (3) Pneumonia: Code(s): J18.9 - Pneumonia, unspecified organism Status: Acute (4) COPD (chronic obstructive pulmonary disease): Qualifiers: COPD type: unspecified COPD Qualified Code(s): J44.9 - Chronic obstructive pulmonary disease, unspecified Code(s): J44.9 - Chronic obstructive pulmonary disease, unspecified Status: Chronic (5) Person under investigation for COVID-19: Code(s): Z20.822 - Contact with and (suspected) exposure to COVID-19 Status: Acute Subjective Date/time seen: 10/18/21 09:49 patient has no new respiratory symptoms. Receiving antibiotic for Pseudomonas in the sputum. He has lower extremity edema but no cough sputum production wheezing. Shortness of breath about unchanged. Gas exchange also unchanged over the last 2 days. Review of Systems Review of Systems: All systems reviewed & are unremarkable except as noted in HPI and below (HPI) Exam Narrative: GENERAL APPEARANCE: Well developed, well nourished, alert and cooperative, and appears to be in no acute distress while breathing supplemental oxygen SKIN: Inspection of the skin reveals no rashes, ulcerations or petechiae. HEENT: Sclerae anicteric and conjunctivae pink and moist. Extraocular movements were intact and pupils were equal, round, and reactive to light. The oral mucosa, hard and soft palate, tongue and posterior pharynx were normal. NECK: Supple. There was no thyroid enlargement, and no tenderness, or masses were felt. CHEST: Normal AP diameter and normal contour without any kyphoscoliosis. LUNGS: Auscultation of the lungs revealed crackles at bases, more on right CARDIAC: There was a regular rate and rhythm without any murmurs, gallops, rubs. ABDOMEN: Soft and nontender with normal bowel sounds. There was no organomegaly. LYMPH NODES: No lymphadenopathy was appreciated in the neck. EXTREMITIES: No cyanosis, or clubbing; 2+ pedal edema. NEUROLOGIC: Alert and oriented x 3. Normal affect. Objective Data Vital Signs Vital Signs: Vital Signs - 24 hr 10/17/21 14:00 10/17/21 20:19 10/17/21 21:00 Temperature 36.8 C Pulse Rate 82 75 Respiratory Rate 20 16 Blood Pressure 127/69 Pulse Oximetry 96 95 97 10/18/21 00:00 10/18/21 06:25 Temperature 36.1 C L 36.1 C L Pulse Rate 63 75 Respiratory Rate 16 16 Blood Pressure 121/45 L 145/67 H Pulse Oximetry 97 96 Intake/Output Intake/Output: Intake & Output 10/15/21 10/16/21 10/17/21 10/18/21 23:59 23:59 23:59 23:59 Intake Total 3590 3020 1840 Output Total 3000 1150 1675 Balance 590 1870 165 Meds/Results Medications: Active Medications Generic Name Dose Route Start Last Admin Trade Name Freq PRN Reason Stop Dose Admin Acetaminophen 650 mg 10/10/21 21:57 Acetaminophen 325 Mg Tablet PO Q4H PRN Mild Pain Albuterol 2 puff 10/11/21 08:00 10/17/21 20:15 Albuterol Sulfate (*Sp) Aerosol 1 Puff INHALATION 2 puff Q12HRT GIOVANNY Administration Aspirin 81 mg 10/11/21 09:00 10/18/21 08:24 Aspirin 81 Mg Enteric Tablet PO 81 mg DAILY GIOVANNY Administration Atorvastatin Calcium 80 mg 10/11/21 09:00
--- NOTE | 2021-10-18 10:06 | PM.IMPN ---
Progress Note: A&P Assessment and Plan (1) Pneumonia: Qualifiers: Laterality: bilateral Lung location: lower lobe of lung Pneumonia type: due to unspecified organism Qualified Code(s): J18.9 - Pneumonia, unspecified organism Code(s): J18.9 - Pneumonia, unspecified organism Status: Acute Assessment and Plan: Discharged from this hospital on 09/16/2021 with COVID pneumonia with home oxygen at 2 L per nasal cannula and treated with prednisone and baricitinib with azithromycin and Rocephin. Readmittend 09/17 due to increasing oxygen requirements w/ cxr w/ worsened airspace opacities in the mid and lower lung zones consistent with pneumonia. Leukocytosis 22 w/ H&H 10.1 and 30.5. K .2 and Na 12 w/ BNP 1280. CTA chest r/o PE and showed extensive bilateral pulmonary infiltrates and likely reactive hilar or mediastinal adenopathy, small right pleural effusion. No DVT on ultrasound. 10/10 BCX negative, sputum cx w/ pseudomonas. Vancomycin, zosyn and azithromycin were discontinued 10/16 and levofloxacin started. COVID 19 negative from 10/15. CRP 7.9. -Levofloxacin 750 mg IV #3 -Continue inhalers -Appreciate pulmonology recs -[employer] recommends sitting up x 30 minutes after eating (2) Acute respiratory failure: Qualifiers: Respiratory failure complication: hypoxia Qualified Code(s): J96.01 - Acute respiratory failure with hypoxia Code(s): J96.00 - Acute respiratory failure, unspecified whether with hypoxia or hypercapnia Status: Acute Assessment and Plan: Acute on chronic respiratory failure due to COVID 19 infection and pneumonia See above (3) Anemia: Code(s): D64.9 - Anemia, unspecified Status: Acute Assessment and Plan: H&H has been stable during this admission. No signs of acute bleeding. Continue to monitor. (4) COVID: Code(s): U07.1 - COVID-19 Status: Acute Assessment and Plan: Recent COVID 1 month ago. No active COVID at this time. 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 (5) Hyponatremia: Code(s): E87.1 - Hypo-osmolality and hyponatremia Status: Acute Assessment and Plan: Likely 2/2 to pneumonia. Improving. (6) CHF (congestive heart failure), NYHA class I: Code(s): I50.9 - Heart failure, unspecified Status: Chronic Assessment and Plan: Mild acute CHF exacerbation w/ BNP peaking at 1430 w/ HFrEF w/ EF 45-50% w/ grade I diastolic dysfunction. Lower extremity edema. -Discontinue furosemide 40 mg po daily -Furosemide 40 mg IV BID -Potassium 60 mEq -Magnesium sulfate 1g -AM electrolytes (7) HTN (hypertension): Code(s): I10 - Essential (primary) hypertension Status: Chronic Assessment and Plan: BP controlled on carvedilol 12.5 mg BID and losartan 50 mg po daily at home. -Continue home medications (8) COPD (chronic obstructive pulmonary disease): Qualifiers: COPD type: unspecified COPD Qualified Code(s): J44.9 - Chronic obstructive pulmonary disease, unspecified Code(s): J44.9 - Chronic obstructive pulmonary disease, unspecified Status: Chronic Assessment and Plan: Continue with Symbicort and albuterol inhaler. Continue with Spiriva. -Continue home inhalers -Appreciate Pulmonolgy recs (9) BPH (benign prostatic hyperplasia): Code(s): N40.0 - Benign prostatic hyperplasia without lower urinary tract symptoms Status: Chronic Assessment and Plan: No signs of urinary retention -Continue finasteride and tamsulosin (10) GERD (gastroesophageal reflux disease): Code(s): K21.9 - Gastro-esophageal reflux disease without esophagitis Status: Chronic Assessment and Plan: Controlled with pantoprazole, which may be causing the MCV elevation. -Continue pantoprazole (11) Constipation: Code(s): K59.00 - Constipation, unspecified Status: Acute
[2021-10-18 13:08] LABS: Vancomycin Trough 7.8 ug/mL (10.0-20.0)
[2021-10-18] MEDS: FUROSEMIDE INJ 40 MG/4 ML VIAL IV PUSH ×2 (13:23→16:02)
[2021-10-18 14:00] VITALS: BP 119/55; PULSE 78; RESP 18; TEMP 36.2; O2SAT 95
[2021-10-18] MEDS: ACETAMINOPHEN 325 MG TABLET 650 MG PO (16:02)
[2021-10-18 20:00] VITALS: BP 121/52; PULSE 71; RESP 16; TEMP 36.2; O2SAT 98
[2021-10-18] MEDS: traZODone HCL 50 MG TABLET 100 MG PO (20:25)
[2021-10-18] MEDS: ALBUTEROL SULFATE (*SP) AEROSOL 1 PUFF 2 PUFF INHALATION (20:54)
[2021-10-18 22:24] VITALS: O2SAT 98
[2021-10-19] VITALS (11 sets, daily range): BP systolic 115–160; BP diastolic 51–74; PULSE 66–85; RESP 16–18; TEMP 36.1–36.7; O2SAT 91–98
[2021-10-19 06:47] LABS: Basophils Percent Auto 0.6 % (0.2-1.2); Eosinophils Absolute Auto 0.1 K/mm3 (0-0.3); Eosinophils Percent Auto 2.8 % (0-4.4); Hematocrit 28.6 % (42.0-52.0); Hemoglobin 9.3 g/dL (14.0-18.0); Immature Granulocyte Absolute 0.19 K/mm3 (0.00-0.031); Immature Granulocyte Percent A 3.8 % (0-0.5); Lymphocytes Absolute Auto 0.98 K/mm3 (0.9-3.2); Lymphocytes Percent Auto 19.4 % (18.3-44.2); Mean Corpuscular HGB Conc 32.5 g/dl (32-36); Mean Corpuscular Volume 101.4 fl (80-100); Monocytes Absolute Auto 0.7 K/mm3 (0.1-0.6); Monocytes Percent Auto 14.7 % (2.6-8.5); Neutrophils Percent Auto 58.7 % (45.5-73.1); Platelet Count Result 181 k/mm3 (150-375); Red Blood Count 2.82 M/mm3 (4.6-6.20); Red Cell Distribution Width 15.5 % (11.5-14.5); White Blood Count 5.1 K/mm3 (4.5-10.0)
[2021-10-19 07:00] LABS: Anion Gap 2 mmol/L (8-16); Blood Urea Nitrogen 7 mg/dL (9-20); Calcium 8.6 mg/dL (8.4-10.2); Carbon Dioxide 38 mmol/L (22-30); Chloride 96 mmol/L (98-107); Estimated CRCL calculation 64 ml/min; Estimated Glomerular Filt Rate > 60; Glucose 90 mg/dL (65-110); Magnesium 2.2 mg/dL (1.6-2.3); Phosphorus 3.6 mg/dL (2.5-4.5); Potassium 3.6 mmol/L (3.4-5.0); Sodium 136 mmol/L (137-145)
--- NOTE | 2021-10-19 07:14 | PM.IMPN ---
Progress Note: A&P Assessment and Plan (1) Pneumonia: Qualifiers: Laterality: bilateral Lung location: lower lobe of lung Pneumonia type: due to unspecified organism Qualified Code(s): J18.9 - Pneumonia, unspecified organism Code(s): J18.9 - Pneumonia, unspecified organism Status: Acute Assessment and Plan: Discharged from this hospital on 09/16/2021 with COVID pneumonia with home oxygen at 2 L per nasal cannula and treated with prednisone and baricitinib with azithromycin and Rocephin. Readmittend 09/17 due to increasing oxygen requirements w/ cxr w/ worsened airspace opacities in the mid and lower lung zones consistent with pneumonia. Leukocytosis 22 w/ H&H 10.1 and 30.5. K .2 and Na 12 w/ BNP 1280. CTA chest r/o PE and showed extensive bilateral pulmonary infiltrates and likely reactive hilar or mediastinal adenopathy, small right pleural effusion. No DVT on ultrasound. 10/10 BCX negative, sputum cx w/ pseudomonas. Vancomycin, zosyn and azithromycin were discontinued 10/16 and levofloxacin started. COVID 19 negative from 10/15. CRP 7.9. -Levofloxacin 750 mg IV #4 -Continue inhalers -Appreciate pulmonology recs -[employer] recommends sitting up x 30 minutes after eating -CXR in AM (2) Acute respiratory failure: Qualifiers: Respiratory failure complication: hypoxia Qualified Code(s): J96.01 - Acute respiratory failure with hypoxia Code(s): J96.00 - Acute respiratory failure, unspecified whether with hypoxia or hypercapnia Status: Acute Assessment and Plan: Acute on chronic respiratory failure due to COVID 19 infection and pneumonia See above (3) Anemia: Code(s): D64.9 - Anemia, unspecified Status: Acute Assessment and Plan: H&H has been stable during this admission. No signs of acute bleeding. Continue to monitor. (4) COVID: Code(s): U07.1 - COVID-19 Status: Acute Assessment and Plan: Recent COVID 1 month ago. No active COVID at this time. 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 (5) Hyponatremia: Code(s): E87.1 - Hypo-osmolality and hyponatremia Status: Acute Assessment and Plan: Likely 2/2 to pneumonia. Improving. (6) CHF (congestive heart failure), NYHA class I: Code(s): I50.9 - Heart failure, unspecified Status: Chronic Assessment and Plan: Mild acute CHF exacerbation w/ BNP peaking at 1430 w/ HFrEF w/ EF 45-50% w/ grade I diastolic dysfunction. Lower extremity edema. -Discontinue furosemide 40 mg po daily -Furosemide 40 mg IV BID -Potassium 60 mEq -Magnesium sulfate 1g -AM electrolytes (7) HTN (hypertension): Code(s): I10 - Essential (primary) hypertension Status: Chronic Assessment and Plan: BP controlled on carvedilol 12.5 mg BID and losartan 50 mg po daily at home. -Continue home medications (8) COPD (chronic obstructive pulmonary disease): Qualifiers: COPD type: unspecified COPD Qualified Code(s): J44.9 - Chronic obstructive pulmonary disease, unspecified Code(s): J44.9 - Chronic obstructive pulmonary disease, unspecified Status: Chronic Assessment and Plan: Continue with Symbicort and albuterol inhaler. Continue with Spiriva. -Continue home inhalers -Appreciate Pulmonolgy recs (9) BPH (benign prostatic hyperplasia): Code(s): N40.0 - Benign prostatic hyperplasia without lower urinary tract symptoms Status: Chronic Assessment and Plan: No signs of urinary retention -Continue finasteride and tamsulosin (10) GERD (gastroesophageal reflux disease): Code(s): K21.9 - Gastro-esophageal reflux disease without esophagitis Status: Chronic Assessment and Plan: Controlled with pantoprazole, which may be causing the MCV elevation. -Continue pantoprazole (11) Constipation: Code(s): K59.00 - Constipation, unspecified St
--- NOTE | 2021-10-19 07:16 | PCNWS ---
Weekly nutritional screen. Patient is tolerating current diet with adequate intake. No weight loss reported. No nutritional needs at this time.
[2021-10-19] MEDS: POTASSIUM CITRATE 5 MEQ TAB CR 20 MEQ PO (07:30)
[2021-10-19] MEDS: MAGNESIUM SULF 1 GM/D5W 100 ML 1 GM/100 ML BAG IVPB (07:31)
--- NOTE | 2021-10-19 07:47 | PCNSR ---
On 10/19/21, the student, Floridalma Perry, provided care and completed [facility] documentation on this patient. I have reviewed the student's documentation and agree with the findings.
[2021-10-19] MEDS: ATORVASTATIN 40 MG TABLET 80 MG PO (09:42)
[2021-10-19] MEDS: OMEGA 3 POLYUNSAT FATTY ACIDS 1 GM CAP PO (09:42)
[2021-10-19] MEDS: ASPIRIN 81 MG ENTERIC TABLET PO (09:42)
[2021-10-19] MEDS: guaiFENesin 12 HR 600 MG TABCR 1200 MG PO ×2 (09:42→20:43)
[2021-10-19] MEDS: FUROSEMIDE INJ 40 MG/4 ML VIAL IV PUSH ×3 (09:42→17:49)
[2021-10-19] MEDS: ENOXAPARIN 40 MG/0.4 ML SYRINGE SUB-Q (09:42)
[2021-10-19] MEDS: DOCUSATE SODIUM 100 MG CAPSULE PO ×2 (09:42→17:49)
[2021-10-19] MEDS: SENNA/DOCUSATE SODIUM TABLET 1 TAB PO ×2 (09:42→17:48)
[2021-10-19] MEDS: buPROPion HCL SR (12 HR) 150 MG TAB PO ×2 (09:42→20:43)
[2021-10-19] MEDS: Linaclotide [Linzess] 145 mcg capsule 145 EACH PO (09:43)
[2021-10-19] MEDS: PANTOPRAZOLE 40 MG TABLET PO (09:43)
[2021-10-19] MEDS: TAMSULOSIN HCL 0.4 MG CAPSULE PO (09:43)
[2021-10-19] MEDS: SERTRALINE HCL 50 MG TABLET PO (09:44)
[2021-10-19] MEDS: polyethylene glycoL 3350 17 GM POWD.PACK PO (09:44)
[2021-10-19] MEDS: MORPHINE SULFATE (*CRX) 60 MG TABCR PO ×2 (09:46→20:43)
[2021-10-19] MEDS: ALBUTEROL SULFATE (*SP) AEROSOL 1 PUFF 2 PUFF INHALATION ×2 (10:10→20:36)
[2021-10-19] MEDS: UMECLIDINIUM BROMIDE 62.5 MCG ELLIPTA 1 PUFF INHALATION ×2 (10:10→10:12)
[2021-10-19] MEDS: FLUTICASONE/SALMETEROL 115-21 MCG INHALER 1 PUFF 2 PUFF INHALATION ×2 (10:10→20:36)
--- NOTE | 2021-10-19 10:40 | PM.PNPUL ---
Progress Note: A&P Assessment and Plan (1) Acute respiratory failure: Qualifiers: Respiratory failure complication: hypoxia Qualified Code(s): J96.01 - Acute respiratory failure with hypoxia Code(s): J96.00 - Acute respiratory failure, unspecified whether with hypoxia or hypercapnia Status: Acute Assessment and Plan: Respiratory status stable over the last 48 hours, afebrile with normal white cell count and some gas exchange improvement. Following speech pathology instructions regarding dysphagia. Continue with current regimen, out of bed to chair. Monitor respiratory status, Chest x-ray, two view, in a.m.. (2) Acute respiratory failure with hypoxia: Code(s): J96.01 - Acute respiratory failure with hypoxia Status: Acute (3) Pneumonia: Code(s): J18.9 - Pneumonia, unspecified organism Status: Acute (4) COPD (chronic obstructive pulmonary disease): Qualifiers: COPD type: unspecified COPD Qualified Code(s): J44.9 - Chronic obstructive pulmonary disease, unspecified Code(s): J44.9 - Chronic obstructive pulmonary disease, unspecified Status: Chronic (5) Person under investigation for COVID-19: Code(s): Z20.822 - Contact with and (suspected) exposure to COVID-19 Status: Acute Subjective Date/time seen: 10/19/21 10:40 patient without new respiratory symptoms, complaining of constipation. Remaining on low oxygen flow at 2 liters/minute. No coughing or sputum production. Lower extremity edema less than before Review of Systems Review of Systems: All systems reviewed & are unremarkable except as noted in HPI and below (HPI) Exam Narrative: GENERAL APPEARANCE: Well developed, well nourished, alert and cooperative, and appears to be in no acute distress while breathing supplemental oxygen SKIN: Inspection of the skin reveals no rashes, ulcerations or petechiae. HEENT: Sclerae anicteric and conjunctivae pink and moist. Extraocular movements were intact and pupils were equal, round, and reactive to light. The oral mucosa, hard and soft palate, tongue and posterior pharynx were normal. NECK: Supple. There was no thyroid enlargement, and no tenderness, or masses were felt. CHEST: Normal AP diameter and normal contour without any kyphoscoliosis. LUNGS: Auscultation of the lungs revealed crackles at bases, more on right CARDIAC: There was a regular rate and rhythm without any murmurs, gallops, rubs. ABDOMEN: Soft and nontender with normal bowel sounds. There was no organomegaly. LYMPH NODES: No lymphadenopathy was appreciated in the neck. EXTREMITIES: No cyanosis, or clubbing; 1+ pedal edema. NEUROLOGIC: Alert and oriented x 3. Normal affect. Objective Data Vital Signs Vital Signs: Vital Signs - 24 hr 10/18/21 14:00 10/18/21 20:00 10/18/21 22:24 Temperature 36.2 C L 36.2 C L Pulse Rate 78 71 Respiratory Rate 18 16 Blood Pressure 119/55 L 121/52 L Pulse Oximetry 95 98 98 10/19/21 00:00 10/19/21 04:00 10/19/21 09:34 Temperature 36.4 C L 36.3 C L 36.7 C Pulse Rate 76 66 78 Respiratory Rate 16 18 16 Blood Pressure 116/53 L 115/56 L 122/51 L Pulse Oximetry 97 94 98 10/19/21 10:16 Temperature Pulse Rate Respiratory Rate Blood Pressure Pulse Oximetry 97 Intake/Output Intake/Output: Intake & Output 10/16/21 10/17/21 10/18/21 10/19/21 23:59 23:59 23:59 23:59 Intake Total 3020 1990 1682 560 Output Total 1150 1675 950 850 Balance 1870 315 732 -290 Meds/Results Medications: Active Medications Generic Name Dose Route Start Last Admin Trade Name Freq PRN Reason Stop Dose Admin Acetaminophen 650 mg 10/10/21 21:57 10/18/21 16:02 Acetaminophen 325 Mg Tablet PO 650 mg Q4H PRN Administration Mild Pain Albuterol 2 puff 10/11/21 08:00 10/19/21 10:10 Albuterol Sulfate (*Sp) Aerosol 1 Puff INHALATION 2 puff Q12HRT GIOVANNY Administration Aspirin 81 mg 10/11/21 09:00 10/19/21 0
[2021-10-19] MEDS: POTASSIUM CHLORIDE 20 MEQ TABLET 40 MEQ PO ×2 (12:59→17:52)
[2021-10-19] MEDS: FINASTERIDE 5 MG TABLET PO (13:00)
[2021-10-19] MEDS: BISACODYL 10 MG SUPPOSITORY RECTAL (15:23)
[2021-10-19] MEDS: POTASSIUM CHLORIDE 20 MEQ TABLET PO (17:52)
[2021-10-19] MEDS: traZODone HCL 50 MG TABLET 100 MG PO (20:43)
[2021-10-20] VITALS (9 sets, daily range): BP systolic 116–154; BP diastolic 55–85; PULSE 78–88; RESP 16–20; TEMP 35.8–36.4; O2SAT 92–100
[2021-10-20 06:47] LABS: Basophils Percent Auto 0.5 % (0.2-1.2); Eosinophils Absolute Auto 0.1 K/mm3 (0-0.3); Eosinophils Percent Auto 1.1 % (0-4.4); Hemoglobin 9.6 g/dL (14.0-18.0); Immature Granulocyte Absolute 0.12 K/mm3 (0.00-0.031); Lymphocytes Absolute Auto 1.32 K/mm3 (0.9-3.2); Lymphocytes Percent Auto 21.5 % (18.3-44.2); Mean Corpuscular Hemoglobin 32.4 pg (26-34); Mean Corpuscular Volume 101.4 fl (80-100); Monocytes Absolute Auto 0.8 K/mm3 (0.1-0.6); Monocytes Percent Auto 12.4 % (2.6-8.5); Neutrophils Absolute Auto 3.9 K/mm3 (1.3-6.7); Neutrophils Percent Auto 62.5 % (45.5-73.1); Platelet Count Result 186 k/mm3 (150-375); Red Blood Count 2.96 M/mm3 (4.6-6.20); White Blood Count 6.2 K/mm3 (4.5-10.0)
[2021-10-20 06:59] LABS: Anion Gap 4 mmol/L (8-16); Blood Urea Nitrogen 8 mg/dL (9-20); Calcium 8.6 mg/dL (8.4-10.2); Carbon Dioxide 34 mmol/L (22-30); Chloride 93 mmol/L (98-107); Estimated CRCL calculation 58 ml/min; Estimated Glomerular Filt Rate > 60; Glucose 88 mg/dL (65-110); Potassium 3.9 mmol/L (3.4-5.0); Sodium 131 mmol/L (137-145)
--- NOTE | 2021-10-20 08:08 | PM.IMPN ---
Progress Note: A&P Assessment and Plan (1) Pneumonia: Qualifiers: Laterality: bilateral Lung location: lower lobe of lung Pneumonia type: due to unspecified organism Qualified Code(s): J18.9 - Pneumonia, unspecified organism Code(s): J18.9 - Pneumonia, unspecified organism Status: Acute Assessment and Plan: Discharged from this hospital on 09/16/2021 with COVID pneumonia with home oxygen at 2 L per nasal cannula and treated with prednisone and baricitinib with azithromycin and Rocephin. Readmittend 09/17 due to increasing oxygen requirements w/ cxr w/ worsened airspace opacities in the mid and lower lung zones consistent with pneumonia. Leukocytosis 22 w/ H&H 10.1 and 30.5. K .2 and Na 12 w/ BNP 1280. CTA chest r/o PE and showed extensive bilateral pulmonary infiltrates and likely reactive hilar or mediastinal adenopathy, small right pleural effusion. No DVT on ultrasound. 10/10 BCX negative, sputum cx w/ pseudomonas. Vancomycin, zosyn and azithromycin were discontinued 10/16 and levofloxacin started. COVID 19 negative from 10/15. CRP 7.9. Patient appears significantly improved this morning and is able to sit in the chair without oxygen. -Levofloxacin 750 mg IV #5 -Continue inhalers -Appreciate pulmonology recs -SENIOR SPECIALIST recommends sitting up x 30 minutes after eating -CXR in pending (2) Acute respiratory failure: Qualifiers: Respiratory failure complication: hypoxia Qualified Code(s): J96.01 - Acute respiratory failure with hypoxia Code(s): J96.00 - Acute respiratory failure, unspecified whether with hypoxia or hypercapnia Status: Acute Assessment and Plan: Acute on chronic respiratory failure due to COVID 19 infection and pneumonia. COVID 19 test negative 10/15/2021 (3) Anemia: Code(s): D64.9 - Anemia, unspecified Status: Acute Assessment and Plan: H&H has been stable during this admission. No signs of acute bleeding. Continue to monitor. (4) COVID: Code(s): U07.1 - COVID-19 Status: Acute Assessment and Plan: Recent COVID 1 month ago. No active COVID at this time. 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 (5) Hyponatremia: Code(s): E87.1 - Hypo-osmolality and hyponatremia Status: Acute Assessment and Plan: Likely 2/2 to pneumonia. Stable. (6) CHF (congestive heart failure), NYHA class I: Code(s): I50.9 - Heart failure, unspecified Status: Chronic Assessment and Plan: Mild acute CHF exacerbation w/ BNP peaking at 1430 w/ HFrEF w/ EF 45-50% w/ grade I diastolic dysfunction. Lower extremity edema significantly improved. -Discontinue furosemide 40 mg po daily -Furosemide 20 mg IV x1 today -AM electrolytes (7) HTN (hypertension): Code(s): I10 - Essential (primary) hypertension Status: Chronic Assessment and Plan: BP controlled on carvedilol 12.5 mg BID and losartan 50 mg po daily at home. Hypertensive overnight. -Restarted losartan 50 mg po daily today -Holding carvedilol (8) COPD (chronic obstructive pulmonary disease): Qualifiers: COPD type: unspecified COPD Qualified Code(s): J44.9 - Chronic obstructive pulmonary disease, unspecified Code(s): J44.9 - Chronic obstructive pulmonary disease, unspecified Status: Chronic Assessment and Plan: Continue with Symbicort and albuterol inhaler. Continue with Spiriva. -Continue home inhalers -Appreciate Pulmonolgy recs (9) BPH (benign prostatic hyperplasia): Code(s): N40.0 - Benign prostatic hyperplasia without lower urinary tract symptoms Status: Chronic Assessment and Plan: No signs of urinary retention -Continue finasteride and tamsulosin (10) GERD (gastroesophageal reflux disease): Code(s): K21.9 - Gastro-esophageal reflux disease without esophagitis Status: Chronic Assessment and Plan: Controll
[2021-10-20] MEDS: FLUTICASONE/SALMETEROL 115-21 MCG INHALER 1 PUFF 2 PUFF INHALATION ×2 (08:25→20:32)
[2021-10-20] MEDS: ALBUTEROL SULFATE (*SP) AEROSOL 1 PUFF 2 PUFF INHALATION ×2 (08:25→20:32)
[2021-10-20] MEDS: UMECLIDINIUM BROMIDE 62.5 MCG ELLIPTA 1 PUFF INHALATION (08:26)
[2021-10-20] MEDS: buPROPion HCL SR (12 HR) 150 MG TAB PO ×2 (09:56→21:26)
[2021-10-20] MEDS: DOCUSATE SODIUM 100 MG CAPSULE PO ×2 (09:56→18:00)
[2021-10-20] MEDS: guaiFENesin 12 HR 600 MG TABCR 1200 MG PO ×2 (09:56→21:27)
[2021-10-20] MEDS: ATORVASTATIN 40 MG TABLET 80 MG PO (09:56)
[2021-10-20] MEDS: OMEGA 3 POLYUNSAT FATTY ACIDS 1 GM CAP PO (09:56)
[2021-10-20] MEDS: SENNA/DOCUSATE SODIUM TABLET 1 TAB PO ×2 (09:57→18:00)
[2021-10-20] MEDS: LOSARTAN POTASSIUM 50 MG TABLET PO (09:57)
[2021-10-20] MEDS: Linaclotide [Linzess] 145 mcg capsule 145 EACH PO (09:57)
[2021-10-20] MEDS: FINASTERIDE 5 MG TABLET PO (09:58)
[2021-10-20] MEDS: ENOXAPARIN 40 MG/0.4 ML SYRINGE SUB-Q (09:58)
[2021-10-20] MEDS: ASPIRIN 81 MG ENTERIC TABLET PO (09:58)
[2021-10-20] MEDS: TAMSULOSIN HCL 0.4 MG CAPSULE PO (10:00)
[2021-10-20] MEDS: PANTOPRAZOLE 40 MG TABLET PO (10:00)
[2021-10-20] MEDS: SERTRALINE HCL 50 MG TABLET PO (10:00)
[2021-10-20] MEDS: MORPHINE SULFATE (*CRX) 60 MG TABCR PO ×2 (10:02→21:27)
--- NOTE | 2021-10-20 12:07 | PCSTNOTE ---
ST attempted to see pt. several times this morning. Pt. was unavailable on all attempts (i.e. working with OT, in bathroom, gone for chest x-ray, sleeping). ST will continue to follow and attempt tomorrow (10/21/21).
[2021-10-20] MEDS: FUROSEMIDE INJ 40 MG/4 ML VIAL 20 MG IV PUSH (12:51)
[2021-10-20] MEDS: LACTULOSE 20 GM/30 ML UDC PO (12:51)
--- NOTE | 2021-10-20 12:56 | PM.PNPUL ---
Progress Note: A&P Assessment and Plan (1) Acute respiratory failure: Qualifiers: Respiratory failure complication: hypoxia Qualified Code(s): J96.01 - Acute respiratory failure with hypoxia Code(s): J96.00 - Acute respiratory failure, unspecified whether with hypoxia or hypercapnia Status: Acute Assessment and Plan: Respiratory status stable over the last 48 hours, afebrile with normal white cell count and some gas exchange improvement. Chest x-ray done today showed partial clearing of the left lower lobe infiltrate. Continue with same treatment will consider DC home in a.m. (2) Acute respiratory failure with hypoxia: Code(s): J96.01 - Acute respiratory failure with hypoxia Status: Acute (3) Pneumonia: Code(s): J18.9 - Pneumonia, unspecified organism Status: Acute (4) COPD (chronic obstructive pulmonary disease): Qualifiers: COPD type: unspecified COPD Qualified Code(s): J44.9 - Chronic obstructive pulmonary disease, unspecified Code(s): J44.9 - Chronic obstructive pulmonary disease, unspecified Status: Chronic Subjective Date/time seen: 10/20/21 12:56 Patient without any new respiratory symptoms. Still complaining of constipation. Remaining on low-flow oxygen. Lower extremity edema less than before. Review of Systems Review of Systems: All systems reviewed & are unremarkable except as noted in HPI and below (HPI) Exam Narrative: GENERAL APPEARANCE: Well developed, well nourished, alert and cooperative, and appears to be in no acute distress while breathing supplemental oxygen SKIN: Inspection of the skin reveals no rashes, ulcerations or petechiae. HEENT: Sclerae anicteric and conjunctivae pink and moist. Extraocular movements were intact and pupils were equal, round, and reactive to light. The oral mucosa, hard and soft palate, tongue and posterior pharynx were normal. NECK: Supple. There was no thyroid enlargement, and no tenderness, or masses were felt. CHEST: Normal AP diameter and normal contour without any kyphoscoliosis. LUNGS: Auscultation of the lungs revealed crackles at bases, more on right CARDIAC: There was a regular rate and rhythm without any murmurs, gallops, rubs. ABDOMEN: Soft and nontender with normal bowel sounds. There was no organomegaly. LYMPH NODES: No lymphadenopathy was appreciated in the neck. EXTREMITIES: No cyanosis, or clubbing; 1+ pedal edema. NEUROLOGIC: Alert and oriented x 3. Normal affect. Objective Data Vital Signs Vital Signs: Vital Signs - 24 hr 10/19/21 18:23 10/19/21 20:00 10/19/21 20:39 Temperature 36.4 C 36.1 C L Pulse Rate 80 85 Respiratory Rate 16 16 Blood Pressure 125/52 L 160/74 H Pulse Oximetry 94 91 94 10/19/21 23:05 10/20/21 00:00 10/20/21 04:00 Temperature 36.3 C L 36.1 C L Pulse Rate 78 85 Respiratory Rate 18 18 Blood Pressure 154/72 H 144/59 H Pulse Oximetry 91 92 100 10/20/21 08:00 10/20/21 08:26 10/20/21 08:27 Temperature 35.8 C L Pulse Rate 88 Respiratory Rate 20 Blood Pressure 149/60 H Pulse Oximetry 99 99 99 10/20/21 12:00 Temperature 36.0 C L Pulse Rate 81 Respiratory Rate 20 Blood Pressure 131/61 Pulse Oximetry 97 Intake/Output Intake/Output: Intake & Output 10/17/21 10/18/21 10/19/21 10/20/21 23:59 23:59 23:59 23:59 Intake Total 1989 1682 1215 600 Output Total 4041 650 5807 1300 Balance 315 540 -3995 -164 Meds/Results Medications: Active Medications Generic Name Dose Route Start Last Admin Trade Name Freq PRN Reason Stop Dose Admin Acetaminophen 650 mg 10/10/21 21:57 10/18/21 16:02 Acetaminophen 325 Mg Tablet PO 650 mg Q4H PRN Administration Mild Pain Albuterol 2 puff 10/11/21 08:00 10/20/21 08:25 Albuterol Sulfate (*Sp) Aerosol 1 Puff INHALATION 2 puff Q12HRT GIOVANNY Administration Aspirin 81 mg 10/11/21 09:00 10/20/21 09:58 Aspirin 81 Mg Enteric Tablet PO 81 mg D
[2021-10-20] MEDS: LORazepam (*CRX) 0.5 MG TABLET PO (16:16)
[2021-10-20] MEDS: traZODone HCL 50 MG TABLET 100 MG PO (21:26)
[2021-10-21] VITALS: BP 145/66; PULSE 82; RESP 18; TEMP 36.6; O2SAT 94
[2021-10-21 04:00] VITALS: BP 129/51; PULSE 78; RESP 18; TEMP 36.4; O2SAT 92
[2021-10-21 07:53] LABS: Estimated CRCL calculation 64 ml/min; Estimated Glomerular Filt Rate > 60
--- NOTE | 2021-10-21 08:01 | PM.IMPN ---
Progress Note: A&P Assessment and Plan (1) Pneumonia: Qualifiers: Laterality: bilateral Lung location: lower lobe of lung Pneumonia type: due to unspecified organism Qualified Code(s): J18.9 - Pneumonia, unspecified organism Code(s): J18.9 - Pneumonia, unspecified organism Status: Acute Assessment and Plan: Discharged from this hospital on 09/16/2021 with COVID pneumonia with home oxygen at 2 L per nasal cannula and treated with prednisone and baricitinib with azithromycin and Rocephin. Readmittend 09/17 due to increasing oxygen requirements w/ cxr w/ worsened airspace opacities in the mid and lower lung zones consistent with pneumonia. Leukocytosis 22 w/ H&H 10.1 and 30.5. K .2 and Na 12 w/ BNP 1280. CTA chest r/o PE and showed extensive bilateral pulmonary infiltrates and likely reactive hilar or mediastinal adenopathy, small right pleural effusion. No DVT on ultrasound. 10/10 BCX negative, sputum cx w/ pseudomonas. Vancomycin, zosyn and azithromycin were discontinued 10/16 and levofloxacin started. COVID 19 negative from 10/15. CRP 7.9. Patient appears significantly improved this morning and is able to sit in the chair without oxygen. Patient has completed 5 days of levofloxacin and no longer requires oxygen. -Levofloxacin 750 mg IV #5 -Patient will discharge to home with home health today -SPRING TIER recommends sitting up x 30 minutes after eating (2) Acute respiratory failure: Qualifiers: Respiratory failure complication: hypoxia Qualified Code(s): J96.01 - Acute respiratory failure with hypoxia Code(s): J96.00 - Acute respiratory failure, unspecified whether with hypoxia or hypercapnia Status: Acute Assessment and Plan: Acute on chronic respiratory failure due to COVID 19 infection and pneumonia. COVID 19 test negative 10/15/2021. This has resolved. (3) Anemia: Code(s): D64.9 - Anemia, unspecified Status: Acute Assessment and Plan: Anemia still present but has increased to . Continue to monitor. (4) COVID: Code(s): U07.1 - COVID-19 Status: Acute Assessment and Plan: Recent COVID 1 month ago. No active COVID at this time. 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 (5) Hyponatremia: Code(s): E87.1 - Hypo-osmolality and hyponatremia Status: Acute Assessment and Plan: Likely 2/2 to pneumonia. Stable. (6) CHF (congestive heart failure), NYHA class I: Code(s): I50.9 - Heart failure, unspecified Status: Chronic Assessment and Plan: Mild acute CHF exacerbation w/ BNP peaking at 1430 w/ HFrEF w/ EF 45-50% w/ grade I diastolic dysfunction. Lower extremity edema resolved and appears euvolemic. (7) HTN (hypertension): Code(s): I10 - Essential (primary) hypertension Status: Chronic Assessment and Plan: BP controlled on carvedilol 12.5 mg BID and losartan 50 mg po daily at home. Losartan restarted 10/20. Will resume home medications at discharge. (8) COPD (chronic obstructive pulmonary disease): Qualifiers: COPD type: unspecified COPD Qualified Code(s): J44.9 - Chronic obstructive pulmonary disease, unspecified Code(s): J44.9 - Chronic obstructive pulmonary disease, unspecified Status: Chronic Assessment and Plan: Continue with Symbicort and albuterol inhaler. Continue with Spiriva. Will continue home inhalers for dicharge. (9) BPH (benign prostatic hyperplasia): Code(s): N40.0 - Benign prostatic hyperplasia without lower urinary tract symptoms Status: Chronic Assessment and Plan: No signs of urinary retention -Continue finasteride and tamsulosin (10) GERD (gastroesophageal reflux disease): Code(s): K21.9 - Gastro-esophageal reflux disease without esophagitis Status: Chronic Assessment and Plan: Controlled with pantoprazole, which may be cau
[2021-10-21 08:26] VITALS: BP 125/60; PULSE 82; RESP 14; TEMP 36.6; O2SAT 93
[2021-10-21] MEDS: ENOXAPARIN 40 MG/0.4 ML SYRINGE SUB-Q (08:59)
[2021-10-21] MEDS: buPROPion HCL SR (12 HR) 150 MG TAB PO (09:00)
[2021-10-21] MEDS: PANTOPRAZOLE 40 MG TABLET PO (09:00)
[2021-10-21] MEDS: guaiFENesin 12 HR 600 MG TABCR 1200 MG PO (09:00)
[2021-10-21] MEDS: ATORVASTATIN 40 MG TABLET 80 MG PO (09:00)
[2021-10-21] MEDS: ASPIRIN 81 MG ENTERIC TABLET PO (09:00)
[2021-10-21] MEDS: DOCUSATE SODIUM 100 MG CAPSULE PO ×2 (09:00→16:52)
[2021-10-21] MEDS: FINASTERIDE 5 MG TABLET PO (09:01)
[2021-10-21] MEDS: SENNA/DOCUSATE SODIUM TABLET 1 TAB PO ×2 (09:01→16:52)
[2021-10-21] MEDS: LOSARTAN POTASSIUM 50 MG TABLET PO (09:01)
[2021-10-21] MEDS: OMEGA 3 POLYUNSAT FATTY ACIDS 1 GM CAP PO (09:01)
[2021-10-21] MEDS: Linaclotide [Linzess] 145 mcg capsule 145 EACH PO (09:01)
[2021-10-21] MEDS: TAMSULOSIN HCL 0.4 MG CAPSULE PO (09:01)
[2021-10-21] MEDS: SERTRALINE HCL 50 MG TABLET PO (09:01)
[2021-10-21] MEDS: ALBUTEROL SULFATE (*SP) AEROSOL 1 PUFF 2 PUFF INHALATION (09:17)
[2021-10-21] MEDS: FLUTICASONE/SALMETEROL 115-21 MCG INHALER 1 PUFF 2 PUFF INHALATION (09:17)
[2021-10-21] MEDS: UMECLIDINIUM BROMIDE 62.5 MCG ELLIPTA 1 PUFF INHALATION (09:18)
[2021-10-21] MEDS: MAGNESIUM HYDROXIDE SUSP 30 ML UDC PO (09:20)
[2021-10-21 09:21] VITALS: O2SAT 97
[2021-10-21 10:08] LABS: Basophils Percent Auto 0.5 % (0.2-1.2); Eosinophils Absolute Auto 0.1 K/mm3 (0-0.3); Eosinophils Percent Auto 0.7 % (0-4.4); Hematocrit 34.8 % (42.0-52.0); Hemoglobin 11.2 g/dL (14.0-18.0); Immature Granulocyte Absolute 0.11 K/mm3 (0.00-0.031); Immature Granulocyte Percent A 1.3 % (0-0.5); Lymphocytes Absolute Auto 1.53 K/mm3 (0.9-3.2); Lymphocytes Percent Auto 18.6 % (18.3-44.2); Mean Corpuscular HGB Conc 32.2 g/dl (32-36); Mean Corpuscular Hemoglobin 32.8 pg (26-34); Mean Corpuscular Volume 102.1 fl (80-100); Mean Platelet Volume 10.1 fl (7.4-10.4); Monocytes Absolute Auto 0.6 K/mm3 (0.1-0.6); Monocytes Percent Auto 7.4 % (2.6-8.5); Neutrophils Absolute Auto 5.9 K/mm3 (1.3-6.7); Neutrophils Percent Auto 71.5 % (45.5-73.1); Platelet Count Result 195 k/mm3 (150-375); Red Blood Count 3.41 M/mm3 (4.6-6.20); White Blood Count 8.2 K/mm3 (4.5-10.0)
[2021-10-21 10:27] LABS: Anion Gap 3 mmol/L (8-16); Blood Urea Nitrogen 7 mg/dL (9-20); Calcium 9.1 mg/dL (8.4-10.2); Carbon Dioxide 36 mmol/L (22-30); Chloride 94 mmol/L (98-107); Estimated CRCL calculation 58 ml/min; Estimated Glomerular Filt Rate > 60; Glucose 116 mg/dL (65-110); Potassium 3.8 mmol/L (3.4-5.0); Sodium 133 mmol/L (137-145)
--- NOTE | 2021-10-21 11:19 | PM.PNPUL ---
Progress Note: A&P Assessment and Plan (1) Acute respiratory failure: Qualifiers: Respiratory failure complication: hypoxia Qualified Code(s): J96.01 - Acute respiratory failure with hypoxia Code(s): J96.00 - Acute respiratory failure, unspecified whether with hypoxia or hypercapnia Status: Acute Assessment and Plan: Respiratory status stable over the last 48 hours, afebrile with normal white cell count and some gas exchange improvement. On last chest x-ray there was partial clearing of the left lower lobe infiltrate, which was related to pneumonitis rather than organizing pneumonia. I would suggest to discharge patient home. He will finish a 8 day course with levofloxacin p.o. for Pseudomonas in the sputum. Patient needs to be evaluated for home oxygen. He will continue with his maintenance bronchodilators for COPD. He needs to return to pulmonary clinic for follow-up in approximately 3 weeks. (2) Acute respiratory failure with hypoxia: Code(s): J96.01 - Acute respiratory failure with hypoxia Status: Acute (3) Pneumonia: Code(s): J18.9 - Pneumonia, unspecified organism Status: Acute (4) COPD (chronic obstructive pulmonary disease): Qualifiers: COPD type: unspecified COPD Qualified Code(s): J44.9 - Chronic obstructive pulmonary disease, unspecified Code(s): J44.9 - Chronic obstructive pulmonary disease, unspecified Status: Chronic Subjective Date/time seen: 10/21/21 11:19 Patient has no new respiratory symptoms. Has been on room air for last 24 hours. Leg edema last less. Review of Systems Review of Systems: All systems reviewed & are unremarkable except as noted in HPI and below (HPI) Exam Narrative: GENERAL APPEARANCE: Well developed, well nourished, alert and cooperative, and appears to be in no acute distress while breathing supplemental oxygen SKIN: Inspection of the skin reveals no rashes, ulcerations or petechiae. HEENT: Sclerae anicteric and conjunctivae pink and moist. Extraocular movements were intact and pupils were equal, round, and reactive to light. The oral mucosa, hard and soft palate, tongue and posterior pharynx were normal. NECK: Supple. There was no thyroid enlargement, and no tenderness, or masses were felt. CHEST: Normal AP diameter and normal contour without any kyphoscoliosis. LUNGS: Auscultation of the lungs revealed crackles at bases, more on right CARDIAC: There was a regular rate and rhythm without any murmurs, gallops, rubs. ABDOMEN: Soft and nontender with normal bowel sounds. There was no organomegaly. LYMPH NODES: No lymphadenopathy was appreciated in the neck. EXTREMITIES: No cyanosis, or clubbing; 1+ pedal edema. NEUROLOGIC: Alert and oriented x 3. Normal affect. Objective Data Vital Signs Vital Signs: Vital Signs - 24 hr 10/20/21 12:00 10/20/21 16:00 10/20/21 20:00 Temperature 36.0 C L 36.2 C L 36.4 C Pulse Rate 81 79 85 Respiratory Rate 20 16 18 Blood Pressure 131/61 116/55 L 148/85 H Pulse Oximetry 97 93 96 10/20/21 20:33 10/21/21 00:00 10/21/21 04:00 Temperature 36.6 C 36.4 C L Pulse Rate 82 78 Respiratory Rate 18 18 Blood Pressure 145/66 H 129/51 L Pulse Oximetry 96 94 92 10/21/21 08:26 10/21/21 09:21 Temperature 36.6 C Pulse Rate 82 Respiratory Rate 14 Blood Pressure 125/60 Pulse Oximetry 93 97 Intake/Output Intake/Output: Intake & Output 10/18/21 10/19/21 10/20/21 10/21/21 23:59 23:59 23:59 23:59 Intake Total 1682 1365 1700 590 Output Total 950 2480 1800 1100 Balance 732 -1115 -100 -510 Meds/Results Medications: Active Medications Generic Name Dose Route Start Last Admin Trade Name Freq PRN Reason Stop Dose Admin Acetaminophen 650 mg 10/10/21 21:57 10/18/21 16:02 Acetaminophen 325 Mg Tablet PO 650 mg Q4H PRN Administration Mild Pain Albuterol 2 puff 10/11/21 08:00 10/21/21 09:17 Albuterol Sulfate (*Sp) Aerosol 1 Puf
[2021-10-21 14:18] VITALS: BP 129/64; PULSE 85; RESP 12; TEMP 36.7; O2SAT 94
[2021-10-21 16:30] VITALS: BP 118/63; PULSE 75; RESP 12; TEMP 36.8; O2SAT 95
--- NOTE | 2021-10-21 16:47 | PM.DS ---
DS: Admitting Diagnosis Discharge Date 10/21/2021 Admitting Diagnosis Acute Hypoxic Respiratory Failure DS: Discharge Diagnosis Discharge Diagnosis (1) Pneumonia: Qualifiers: Laterality: bilateral Lung location: lower lobe of lung Pneumonia type: due to unspecified organism Qualified Code(s): J18.9 - Pneumonia, unspecified organism Code(s): J18.9 - Pneumonia, unspecified organism Status: Acute Assessment and Plan: Discharged from this hospital on 09/16/2021 with COVID pneumonia with home oxygen at 2 L per nasal cannula and treated with prednisone and baricitinib with azithromycin and Rocephin. Readmittend 09/17 due to increasing oxygen requirements w/ cxr w/ worsened airspace opacities in the mid and lower lung zones consistent with pneumonia. Leukocytosis 22 w/ H&H 10.1 and 30.5. K .2 and Na 12 w/ BNP 1280. CTA chest r/o PE and showed extensive bilateral pulmonary infiltrates and likely reactive hilar or mediastinal adenopathy, small right pleural effusion. No DVT on ultrasound. 10/10 BCX negative, sputum cx w/ pseudomonas. Vancomycin, zosyn and azithromycin were discontinued 10/16 and levofloxacin started. COVID 19 negative from 10/15. CRP 7.9. Patient appears significantly improved this morning and is able to sit in the chair without oxygen. Patient will finish an 8 days course of levofloxacin after discharge. -Levofloxacin 750 mg IV #5/ -Patient will discharge to home with home health today -SIGN HANGER SUPERVISOR recommends sitting up x 30 minutes after eating (2) Acute respiratory failure: Qualifiers: Respiratory failure complication: hypoxia Qualified Code(s): J96.01 - Acute respiratory failure with hypoxia Code(s): J96.00 - Acute respiratory failure, unspecified whether with hypoxia or hypercapnia Status: Acute Assessment and Plan: Acute on chronic respiratory failure due to COVID 19 infection and pneumonia. COVID 19 test negative 10/15/2021. This has resolved. (3) Anemia: Code(s): D64.9 - Anemia, unspecified Status: Acute Assessment and Plan: Anemia still present but has increased to . Continue to monitor. (4) COVID: Code(s): U07.1 - COVID-19 Status: Acute Assessment and Plan: Recent COVID 1 month ago. No active COVID at this time. 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 (5) Hyponatremia: Code(s): E87.1 - Hypo-osmolality and hyponatremia Status: Acute Assessment and Plan: Likely 2/2 to pneumonia. Stable. (6) CHF (congestive heart failure), NYHA class I: Code(s): I50.9 - Heart failure, unspecified Status: Chronic Assessment and Plan: Mild acute CHF exacerbation w/ BNP peaking at 1430 w/ HFrEF w/ EF 45-50% w/ grade I diastolic dysfunction. Lower extremity edema resolved and appears euvolemic. (7) HTN (hypertension): Code(s): I10 - Essential (primary) hypertension Status: Chronic Assessment and Plan: BP controlled on carvedilol 12.5 mg BID and losartan 50 mg po daily at home. Losartan restarted 10/20. Will resume home medications at discharge. (8) COPD (chronic obstructive pulmonary disease): Qualifiers: COPD type: unspecified COPD Qualified Code(s): J44.9 - Chronic obstructive pulmonary disease, unspecified Code(s): J44.9 - Chronic obstructive pulmonary disease, unspecified Status: Chronic Assessment and Plan: Continue with Symbicort and albuterol inhaler. Continue with Spiriva. Will continue home inhalers for dicharge. (9) BPH (benign prostatic hyperplasia): Code(s): N40.0 - Benign prostatic hyperplasia without lower urinary tract symptoms Status: Chronic Assessment and Plan: No signs of urinary retention -Continue finasteride and tamsulosin (10) GERD (gastroesophageal reflux disease): Code(s): K21.9 - Gastro-esophageal reflux disease without
== END 2021-10-21 18:10 | disposition home health service (06) | DRG 871 ==
LOC: ANHED 15:13 → ANHIMU 19:09 → ANH2MED 10-15 07:07 → ANH3MEDSUR 10-17 06:38 → ANHIMU 10-22 09:50 → ANH2MED 10-22 09:50 → ANH3MEDSUR 10-22 09:50
PROVIDERS: Internal Medicine; Internal Medicine Pulmonary Disease; Nurse Practitioner; Physician Assistant; Admitting Provider Internal Medicine; Emergency Provider General Practice; PCP Family Medicine Adolescent Medicine; Visit Provider Family Medicine
DX: A41.9 Sepsis, unspecified organism (principal); J18.9 Pneumonia, unspecified organism; I50.43 Acute on chronic combined systolic (congestive) and diastolic (congestive) heart failure; R65.20 Severe sepsis without septic shock; J96.01 Acute respiratory failure with hypoxia; J44.0 Chronic obstructive pulmonary disease with (acute) lower respiratory infection; E87.1 Hypo-osmolality and hyponatremia; J96.10 Chronic respiratory failure, unspecified whether with hypoxia or hypercapnia; U09.9 Post COVID-19 condition, unspecified; Z20.822 Contact with and (suspected) exposure to COVID-19; I25.10 Atherosclerotic heart disease of native coronary artery without angina pectoris; Z95.5 Presence of coronary angioplasty implant and graft; J44.9 Chronic obstructive pulmonary disease, unspecified; E78.5 Hyperlipidemia, unspecified; I50.9 Heart failure, unspecified; N40.0 Benign prostatic hyperplasia without lower urinary tract symptoms; K21.9 Gastro-esophageal reflux disease without esophagitis; I11.0 Hypertensive heart disease with heart failure; Z87.891 Personal history of nicotine dependence; K59.00 Constipation, unspecified; B96.5 Pseudomonas (aeruginosa) (mallei) (pseudomallei) as the cause of diseases classified elsewhere; Y95 Nosocomial condition; D64.9 Anemia, unspecified
CPT/HCPCS: 36415; 36600; 71045; 71046; 71275; 80048; 80053; 80202; 81001; 82375; 82565; 82728; 82805; 82948; 83050; 83605; 83615; 83690; 83735; 83880; 84100; 84484; 85025; 85027; 85380; 85610; 85730; 86140; 87040; 87070; 87077; 87186; 87205; 87804; 92526; 92610; 92611; 93005; 93306; 93970; 94640; 96361; 96365; 96367; 97110; 97116; 97162; 97165; 97530; 97535; 99285; A9270; C9803; G0378; J0456; J1650; J1940; J1956; J2543; J3370; J3475; J7030; J7040; Q9967; U0003; U0005

== ENCOUNTER 2021-12-17 00:43 | Day surgery (SDC) | payer MEDICARE, SELFPAY ==
[2021-12-05 14:03] VITALS: BMI 25.0
[2021-12-17 09:57] VITALS: BP 121/59; PULSE 75; RESP 20; TEMP 36.3; O2SAT 94
[2021-12-17] MEDS: LACTATED RINGERS 1,000 ML 150 ML IV CONT (10:10)
--- NOTE | 2021-12-17 10:46 | WPDGICN ---
Assessment and Plan Assessment and plan (1) History of colon polyps: Code(s): Z86.010 - Personal history of colonic polyps Status: Acute Assessment and Plan: Patient has a hip prior history of colon polyps. Most recently 2014. Plan is for surveillance colonoscopy at the present time. Further recommendations will be given after endoscopy. (2) Constipation: Code(s): K59.00 - Constipation, unspecified Status: Acute Assessment and Plan: Patient has a history of ongoing constipation. This appears to be related to narcotic use. Recommend continuing Linzess 290 mcg p.o. daily. He may need to add additionally take MiraLax p.r.n.. (3) Spinal stenosis: Code(s): M48.00 - Spinal stenosis, site unspecified Status: Chronic Assessment and Plan: Patient takes morphine because of spices stenosis. Limiting narcotics may help with his constipation. We discussed how this is a balancing act. GI Consult Note Consult date/time: 12/17/21 10:46 HPI: Russell Morse is a 76 year old male Presents for colonoscopy. Patient has a prior history of colon polyps in 2014. He presents today for surveillance exam. Patient also has a history of spinal stenosis for which she takes morphine. This is recently caused him to be constipated. Currently taking Linzess 290 micro g p.o. daily has helped to some degree. Patient continues to have bowel movements only every 3 days. Denies any bleeding. He has no significant abdominal pain aside from constipation. Family history noncontributory. 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 Bone removed from right hip for reconstructive surgery S/P tonsillectomy and adenoidectomy Family History Family History Other No problems noted. Mother Diabetes mellitus Father COPD (chronic obstructive pulmonary disease) Colon cancer Sibling Colon cancer Lung cancer Acute myocardial infarction COPD (chronic obstructive pulmonary disease) Sibling COPD (chronic obstructive pulmonary disease) Sibling Congestive heart failure Social History Social History Social History: The patient lives with his son and [id number]. Patient is a . The patient quit smoking in 2019. He also gave up alcohol many years ago. No marijuana or illicit drugs. The patient does not have a durable power senior trial attorney for healthcare. The patient desires to be a full code. 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 The patient has 5 biological children and raise 2 other children. Smoking packs per day: 2 Smoking cigarettes per day: 40.0 Years smoked: 60 Smoking pack-years: 120.00 Smoking status: Former smoker Tobacco type: cigarettes Second hand tobacco smoke exposure: No Smoking end date: 09/16/17 Alcohol intake: former Substance use: current Substance use type: opiates Last use: Last alcohol use 2010 Living arrangements: with family Spiritual care concerns: No Meds Home Medications and Allergies Home Medications Medication Instructions Recorded Confirmed Type Mucinex 1,200 mg PO BID 12/02/19 12/12/21 History Spiriva Emilia
--- NOTE | 2021-12-17 10:53 | WPDANESEPPF ---
Anes - Initial Pre Proc Eval Procedure: Operation Date: 12/17/21 11:00 Proposed Procedures p Screening Colonoscopy - Matthew Erickson MD Date/Time: 12/17/21 10:53 Surgeon: Matthew Erickson MD Pre Op Diagnosis: Hx of colon polyps Patient Data Age: 76 Gender: M Height: 1.8 m Weight: 84.5 kg Last Vital Signs Temp 97.4 F L 12/17/21 09:57 Pulse 75 12/17/21 09:57 Resp 20 12/17/21 09:57 BP 121/59 L 12/17/21 09:57 Pulse Ox 94 12/17/21 09:57 Allergies Allergy/AdvReac Type Severity Reaction Status Date / Time No Known Allergies Allergy Unknown Verified 12/17/21 10:33 Home Medications Medication Instructions Recorded Confirmed Type Mucinex 1,200 mg PO BID 12/02/19 12/12/21 History Spiriva Respimat 2 puff INHALATION DAILY 12/02/19 12/12/21 History aspirin [Aspir-81] 81 mg PO DAILY 12/02/19 12/12/21 History atorvastatin 80 mg PO DAILY 12/02/19 12/12/21 History budesonide-formoterol [Symbicort] 2 puff INHALATION Q12H 12/02/19 12/12/21 History bupropion HCl 150 mg PO BID 12/02/19 12/12/21 History carvedilol [Coreg] 12.5 mg PO BID 12/02/19 12/12/21 History finasteride 5 mg PO DAILY 12/02/19 12/12/21 History losartan 50 mg PO DAILY 12/02/19 12/12/21 History morphine [MS Contin] 60 mg PO DAILY 12/02/19 12/12/21 History tamsulosin 0.4 mg PO DAILY 12/02/19 12/12/21 History trazodone 100 mg PO HS 12/02/19 12/12/21 History acetaminophen [Tylenol] 650 mg PO Q4H PRN 08/02/21 12/12/21 History nitroglycerin 0.4 mg SUBLINGUAL Q5M PRN 08/02/21 12/12/21 History sulindac 200 mg PO BID 08/02/21 12/12/21 History furosemide 40 mg PO DAILY 10/10/21 12/12/21 History sertraline 50 mg PO DAILY 10/10/21 12/12/21 History linaclotide 290 mcg capsule 290 mcg PO DAILY 30 Days #30 cap 12/05/21 12/12/21 Rx albuterol sulfate 90 mcg/actuation 2 puff INHALATION Q4H PRN g 12/12/21 12/12/21 History aerosol inhaler nystatin 100,000 unit/gram topical 1 applic TOPICAL DAILY 12/12/21 12/12/21 History ointment Patient hx anesthesia problems: none Family hx anesthesia problems: none Results Review: All pre-operative results and documents have been reviewed as part of the pre-operative evaluation. 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 Bone removed from right hip for reconstructive surgery S/P tonsillectomy and adenoidectomy Family History Family History Other No problems noted. Mother Diabetes mellitus Father COPD (chronic obstructive pulmonary disease) Colon cancer Sibling Colon cancer Lung cancer Acute myocardial infarction COPD (chronic obstructive pulmonary disease) Sibling COPD (chronic obstructive pulmonary disease) Sibling Congestive heart failure Social History Social History Social History: The patient lives with his son and [id number]. Patient is a . The patient quit smoking in 2019. He also gave up alcohol many years ago. No marijuana or illicit drugs. The patient does not have a durable power piercing artist for healthcare. The patient desires to be a full code. 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 The patient has 5 biological children and raise 2 other children. Smoking packs per day: 2 Smoking cigarettes per day: 40.0 Years smoked: 60 Smoking pack-years: 120.00 Smoking sta
[2021-12-17 11:12] VITALS: BP 103/48; PULSE 66; RESP 19; O2SAT 100
[2021-12-17 11:22] VITALS: BP 129/58; PULSE 71; RESP 17; O2SAT 98
[2021-12-17 11:32] VITALS: BP 148/63; PULSE 66; RESP 12; O2SAT 99
== END 2021-12-17 11:44 | disposition home or self-care (01) ==
PROVIDERS: PCP Family Medicine Adolescent Medicine; Visit Provider Internal Medicine Gastroenterology
PROC: 0DJD8ZZ Inspection of Lower Intestinal Tract, Via Natural or Artificial Opening Endoscopic (ICD-10-PCS; CPT 45378; principal; 2021-12-17 11:00)
DX: Z12.11 Encounter for screening for malignant neoplasm of colon (principal); K59.00 Constipation, unspecified; Z86.010 Personal history of colon polyps; M48.00 Spinal stenosis, site unspecified; I11.0 Hypertensive heart disease with heart failure; I50.9 Heart failure, unspecified; J44.9 Chronic obstructive pulmonary disease, unspecified; N40.0 Benign prostatic hyperplasia without lower urinary tract symptoms; K21.9 Gastro-esophageal reflux disease without esophagitis; Z95.5 Presence of coronary angioplasty implant and graft; Z87.891 Personal history of nicotine dependence; Z79.82 Long term (current) use of aspirin; Z79.51 Long term (current) use of inhaled steroids; Z79.891 Long term (current) use of opiate analgesic
CPT/HCPCS: G0105; J2704; J7120

== ENCOUNTER 2022-01-01 14:31 | Outpatient (CLI) | payer MEDICARE, SELFPAY ==
[2022-01-01 14:52] VITALS: PULSE 58; O2SAT 96
[2022-01-01 14:54] VITALS: PULSE 72; O2SAT 94
[2022-01-01 14:56] VITALS: PULSE 73; O2SAT 92
--- NOTE | 2022-01-01 15:28 | HOMEO2EVAL ---
Evaluation was performed at [facility] Home Oxygen Evaluation RC: Home Oxygen (O2) Evaluation Start: 01/01/22 15:27 Freq: Status: Active Protocol: RPE Activity Type Activity Date Activity User E-Sign Co-Sign Detail Recorded Client Recorded Date Recorded By Document 01/01/22 14:52 KRM [id number] 01/01/22 15:28 KRM Document 01/01/22 14:54 KRM [id number] 01/01/22 15:28 KRM Document 01/01/22 14:56 KRM [id number] 01/01/22 15:28 KRM 01/01/22 01/01/22 01/01/22 14:52 14:54 14:56 Home O2 Evaluation Test Phase Resting Exercise Exercise Oxygen Delivery Room Air Room Air Room Air Pulse Oximetry (90-100 %) 96 94 92 Pulse Rate (60-100 beats/min) 58 L 72 73 Activity Tolerance Good Good Treatment Charges O2 Evaluation - Inpatient
--- NOTE | 2022-01-01 15:59 | WPDPFTINT ---
PFT Procedure Performed PFT Procedure Performed Spirometry with Pre/Post Bronchodilator Plethysmography (Lung Vol) Diffusing Cap (DLCO) Flow Vol Loop PFT Interpretation This is a pulmonary function test with pre and post-bronchodilator spirometry, plethysmography and diffusing capacity. The test was performed and results interpreted in accordance with the 2019 and 2005 ATS/ERS Task Force guidelines respectively using the Global Lung Function Initiative-2012 reference equations. Patient demonstrated good effort and cooperation. Reproducibility criteria were met. The quality of the pre bronchodilator spirometry maneuver was Grade A and post bronchodilator spirometry maneuver was Grade A. Findings: Spirometry: there is decreased maximal expiratory airflow at all low lung volumes with a mildly concave expiratory flow tracing. The pre bronchodilator FVC is 4.46 L, 109% predicted. The pre bronchodilator FEV1 is 3.13 L, 102% predicted. The FEV1: FVC ratio 70%. The post bronchodilator FVC is 4.38 L, representing a 2% decrease. The post bronchodilator FEV1 is 3.11 L, representing 1% decrease. The post bronchodilator FEV1: FVC ratio 71%. Plethysmography: The total lung capacity is 7.39 L, 102% predicted. The functional residual capacity is 4.95 L, 127% predicted. The residual volume is 2.93 L, 111% predicted. Diffusing capacity: The diffusion capacity on adjusted for hemoglobin is 14.9, 60% predicted. The diffusing capacity adjusted for alveolar volume is 2.63, 72 % predicted. Impression: There is a mild obstructive abnormality with a normal FEV1 and without significant improvement after inhaling a single dose of albuterol. The lung volumes are normal. The diffusing capacity unadjusted for hemoglobin is moderately decreased and normalizes when adjusted for alveolar volume. Impression: There is a moderately severe restrictive ventilatory abnormality. The spirometry is normal without evidence of an obstructive abnormality. There is no significant improvement after inhaling a single dose of albuterol. The diffusing capacity unadjusted for hemoglobin is moderately decreased and normalizes when adjusted for alveolar volume. There are no prior studies for comparison
== END 2022-01-01 14:32 | disposition home or self-care (01) ==
LOC: ANHPFT 14:36
PROVIDERS: PCP Family Medicine Adolescent Medicine; Visit Provider Internal Medicine Pulmonary Disease
DX: J44.9 Chronic obstructive pulmonary disease, unspecified (principal); R06.00 Dyspnea, unspecified; R94.2 Abnormal results of pulmonary function studies
CPT/HCPCS: 94060; 94618; 94726; 94729

== ENCOUNTER 2022-01-21 00:45 | Day surgery (SDC) | payer MEDICARE, SELFPAY ==
[2022-01-06 14:07] VITALS: BMI 26.4
[2022-01-21 09:33] VITALS: BP 151/61; PULSE 73; RESP 20; TEMP 36.2; O2SAT 94; BMI 26.4
[2022-01-21] MEDS: LACTATED RINGERS 1,000 ML 150 ML IV CONT (09:42)
--- NOTE | 2022-01-21 10:05 | WPDGICN ---
Assessment and Plan Assessment and plan (1) History of colon polyps: Code(s): Z86.010 - Personal history of colonic polyps Status: Acute Assessment and Plan: Patient has a prior history of colon polyps. Also has a history of partial colon resection. Surveillance colonoscopy advised at this time. (2) Family history of colon cancer in father: Code(s): Z80.0 - Family history of malignant neoplasm of digestive organs Status: Acute Assessment and Plan: Patient has a family history of colon cancer in his father as well as a sibling. Plan is for surveillance colonoscopy now and consider at 5 year intervals. (3) Constipation: Code(s): K59.00 - Constipation, unspecified Status: Acute Assessment and Plan: Patient with chronic constipation attributed to spinal stenosis. Supplementing stool softeners with Linzess appears appropriate at this time. GI Consult Note Consult date/time: 01/21/22 10:05 HPI: Russell Morse is a 76 year old male Presents for screening colonoscopy. Patient has a history of colon polyps in 2014. He also has a history of chronic constipation. He takes Linzess on a 5 daily basis. He denies any blood in his stools. Recent attempted colonoscopy 1 month ago was not successful because of retained stool he presents today for screening follow-up colonoscopy. Family history is Significant his father had colon cancer in his sibling had colon cancer as well. Review of Systems Review of Systems: All systems reviewed & are unremarkable except as noted in HPI and below PMFSH Past Medical History Medical History (Updated 01/21/22 @ 10:07 by Matthew Erickson MD) CHF (congestive heart failure), NYHA class I EF 45-50% 10/13 COPD (chronic obstructive pulmonary disease) GERD (gastroesophageal reflux disease) History of colon polyps HTN (hypertension) Normal colonoscopy 05/07 Surgical History Surgical History (Updated 01/21/22 @ 08:21 by Naveed Mcintosh MD) H/O rotator cuff surgery History of colon resection History of coronary artery stent placement X2 History of mandibular surgery 1986 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 Bone removed from right hip for reconstructive surgery S/P tonsillectomy and adenoidectomy Family History Family History (Updated 01/21/22 @ 08:22 by Naveed Mcintosh MD) Mother Diabetes mellitus Acute myocardial infarction Father COPD (chronic obstructive pulmonary disease) Colon cancer Sibling Colon cancer Lung cancer Acute myocardial infarction COPD (chronic obstructive pulmonary disease) Sibling COPD (chronic obstructive pulmonary disease) Sibling Congestive heart failure Social History Social History Social History: The patient lives with his son and [id number]. Patient is a . The patient quit smoking in 2019. He also gave up alcohol many years ago. No marijuana or illicit drugs. The patient does not have a durable power commercial litigation attorney for healthcare. The patient desires to be a full code. 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 The patient has 5 biological children and raise 2 other children. Smoking packs per day: 2 Smoking cigarettes per day: 40.0 Years smoked: 60 Smoking pack-years: 120.00 Smoking status: Former smoker Tobacco type: cigarettes Second hand tobacco smoke exposure: No Smoking end date: 09/16/17 Alcohol intake: former Substance use: never Substance use type: does not use Last use: Last alcohol use 2010 Living arrangements: with family Spiritual care concerns: No Meds Home Medications and Allergies Home Medications Medication Instructions Recorded Confirmed Type Mucinex 1,200 mg PO BID 12/02/19 01/06/22 History Spiriva Respimat 2 puff INHALATION DAILY 12/02/19 01/06/22 History aspirin [Aspir-81] 81 mg PO DAILY 12/02/19 02
--- NOTE | 2022-01-21 10:05 | WPDANESEPPF ---
Anes - Initial Pre Proc Eval Procedure: Operation Date: 01/21/22 10:30 Proposed Procedures p Screening Colonoscopy - Matthew Erickson MD Date/Time: 01/21/22 10:05 Surgeon: Matthew Erickson MD Pre Op Diagnosis: neoplasm screening Patient Data Age: 76 Gender: M Height: 1.8 m Weight: 86.2 kg Last Vital Signs Temp 97.1 F L 01/21/22 09:33 Pulse 73 01/21/22 09:33 Resp 20 01/21/22 09:33 BP 151/61 H 01/21/22 09:33 Pulse Ox 94 01/21/22 09:33 Allergies Allergy/AdvReac Type Severity Reaction Status Date / Time varenicline [From Chantix] AdvReac Intermediate Nausea, Verified 01/21/22 08:22 depression Home Medications Medication Instructions Recorded Confirmed Type Mucinex 1,200 mg PO BID 12/02/19 01/06/22 History Spiriva Respimat 2 puff INHALATION DAILY 12/02/19 01/06/22 History aspirin [Aspir-81] 81 mg PO DAILY 12/02/19 01/06/22 History atorvastatin 80 mg PO DAILY 12/02/19 01/06/22 History budesonide-formoterol [Symbicort] 2 puff INHALATION Q12H 12/02/19 01/06/22 History bupropion HCl 150 mg PO BID 12/02/19 01/06/22 History carvedilol [Coreg] 12.5 mg PO BID 12/02/19 01/06/22 History finasteride 5 mg PO DAILY 12/02/19 01/06/22 History losartan 50 mg PO DAILY 12/02/19 01/06/22 History morphine [MS Contin] 60 mg PO DAILY 12/02/19 01/06/22 History tamsulosin 0.4 mg PO DAILY 12/02/19 01/06/22 History trazodone 100 mg PO HS 12/02/19 01/06/22 History acetaminophen [Tylenol] 650 mg PO Q4H PRN 08/02/21 01/06/22 History nitroglycerin 0.4 mg SUBLINGUAL Q5M PRN 08/02/21 01/06/22 History furosemide 40 mg PO DAILY 10/10/21 01/06/22 History sertraline 50 mg PO DAILY 10/10/21 01/06/22 History linaclotide 290 mcg capsule 290 mcg PO DAILY 30 Days #30 cap 12/05/21 01/06/22 Rx albuterol sulfate 90 mcg/actuation 2 puff INHALATION Q4H PRN g 12/12/21 01/06/22 History aerosol inhaler nystatin 100,000 unit/gram topical 1 applic TOPICAL DAILY 12/12/21 01/06/22 History ointment sulindac 200 mg tablet 200 mg PO BID #60 tablet 12/20/21 01/06/22 Rx Patient hx anesthesia problems: none Family hx anesthesia problems: none Results Review: All pre-operative results and documents have been reviewed as part of the pre-operative evaluation. 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 Bone removed from right hip for reconstructive surgery S/P tonsillectomy and adenoidectomy Family History Family History (Updated 01/21/22 @ 08:22 by Naveed Mcintosh MD) Mother Diabetes mellitus Acute myocardial infarction Father COPD (chronic obstructive pulmonary disease) Colon cancer Sibling Colon cancer Lung cancer Acute myocardial infarction COPD (chronic obstructive pulmonary disease) Sibling COPD (chronic obstructive pulmonary disease) Sibling Congestive heart failure Social History Social History Social History: The patient lives with his son and [id number]. Patient is a . The patient quit smoking in 2018. He also gave up alcohol many years ago. No marijuana or illicit drugs. The patient does not have a durable power group practice pediatrician for healthcare. The patient desires to be a full code. 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 The patient has 5 biological children and raise 2 other children. Smoking packs per day: 2 Smoking cigarettes per day: 40.0 Years sm
[2022-01-21 10:38] VITALS: BP 122/59; PULSE 57; RESP 22; O2SAT 98
[2022-01-21 10:48] VITALS: BP 137/73; PULSE 58; RESP 18; O2SAT 100
[2022-01-21 10:58] VITALS: BP 161/66; PULSE 56; RESP 16; O2SAT 98
== END 2022-01-21 11:09 | disposition home or self-care (01) ==
PROVIDERS: PCP Family Medicine Adolescent Medicine; Visit Provider Internal Medicine Gastroenterology
PROC: 0DJD8ZZ Inspection of Lower Intestinal Tract, Via Natural or Artificial Opening Endoscopic (ICD-10-PCS; CPT 45378; principal; 2022-01-21 10:30)
DX: Z12.11 Encounter for screening for malignant neoplasm of colon (principal); Z86.010 Personal history of colon polyps; Z80.0 Family history of malignant neoplasm of digestive organs; K59.00 Constipation, unspecified; K64.8 Other hemorrhoids; I11.0 Hypertensive heart disease with heart failure; J44.9 Chronic obstructive pulmonary disease, unspecified; K21.9 Gastro-esophageal reflux disease without esophagitis; I50.9 Heart failure, unspecified; Z95.5 Presence of coronary angioplasty implant and graft; Z87.891 Personal history of nicotine dependence; Z79.82 Long term (current) use of aspirin; Z79.51 Long term (current) use of inhaled steroids
CPT/HCPCS: G0105; J2704; J7120

== ENCOUNTER 2023-02-01 08:17 | Emergency (ER) | payer MEDICARE, SELFPAY ==
[2023-02-01 08:18] VITALS: BP 157/103; PULSE 80; RESP 19; TEMP 36.4; O2SAT 97
[2023-02-01 08:27] VITALS: PULSE 76
--- NOTE | 2023-02-01 08:28 | ECG_ITS ---
Measurements Intervals [place] Rate: 80 P: 43 SC: 198 QRS: -2 QRSD: 112 T: 46 QT: 399 QTc: 461 Interpretive Statements SINUS RHYTHM POSSIBLE LEFT ATRIAL ENLARGEMENT INCOMPLETE RIGHT BUNDLE BRANCH BLOCK DELAYED PRECORDIAL R/S TRANSITION BASELINE ARTIFACT- I, II, III, AVR, AVL, AVF, V1, V3-V6 BORDERLINE ECG COMPARED TO ECG 10/11/2021 09:12:15 NO SIGNIFICANT CHANGES Electronically Signed On 02-01-2023 13:16:06 CDT by Tim Mary D.O.
[2023-02-01 08:35] VITALS: BP 176/86; PULSE 79; RESP 18; O2SAT 98
[2023-02-01] MEDS: HYDROmorphone HCL INJ (*CRX) 1 MG/ML SYR 0.5 MG IV PUSH (09:11)
[2023-02-01] MEDS: valACYclovir HCL 500 MG TABLET 1000 MG PO (09:12)
--- NOTE | 2023-02-01 09:18 | ED.GENADULT ---
HPI - General Adult General Chief complaint: Dizziness Stated complaint: dizziness/pain/rash/aches x two days. Time Seen by Provider: 02/01/23 08:20 History of Present Illness HPI narrative: 77-year-old male presented to the emergency department for evaluation of worsening rash on the left side of his chest. Patient was seen by his primary care physician on Thursday and started on steroids with being the first full day of steroids. Family reports that the rash has worsened. Patient is complaining of worsening pain at the site of the rash. Patient states he did have some nausea and vomiting last night and did have some poor sleep due to the level of pain. Patient does take p.o. morphine for chronic pain. Related Data Home Medications Medication Instructions Recorded Confirmed aspirin 81 mg tablet,delayed 81 mg PO DAILY 12/02/19 01/28/23 release (Aspir-) carvedilol 12.5 mg tablet (Coreg) 12.5 mg PO BID 12/02/19 01/28/23 finasteride 5 mg tablet 5 mg PO DAILY 12/02/19 01/28/23 guaifenesin 1,200 mg tablet, 1,200 mg PO BID 12/02/19 01/28/23 extended release 12 hr (Mucinex) losartan 50 mg tablet 50 mg PO DAILY 12/02/19 01/28/23 tiotropium bromide 2.5 2 puff inhalation DAILY 12/02/19 01/28/23 mcg/actuation mist for inhalation (Spiriva Respimat) acetaminophen 325 mg tablet 650 mg PO Q4H PRN Mild Pain 08/02/21 01/28/23 (Tylenol) psyllium seed (sugar) oral powder 1 tbsp PO DAILY 01/22/22 09/17/22 (Metamucil (sugar) oral powder) Allergies Allergy/AdvReac Type Severity Reaction Status Date / Time No Known Allergies Allergy Verified 02/01/23 15:10 Review of Systems Review of Systems: CONSTITUTIONAL: Subjective chills last night EYES: Denies visual changes, redness, or discharge. ENT: Denies rhinorrhea, congestion, sore throat, or otalgia. CARDIOVASCULAR: Denies chest pain, palpitations, or edema. RESPIRATORY: Denies cough or dyspnea. GASTROINTESTINAL: See HPI GENITOURINARY: Denies dysuria or hematuria. SKIN: See HPI MUSCULOSKELETAL: Denies back pain, joint pain, or myalgia. NEUROLOGIC: Denies headache, numbness, or weakness. 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 Bone removed from right hip for reconstructive surgery S/P tonsillectomy and adenoidectomy Family History Family History Mother Diabetes mellitus Acute myocardial infarction Father COPD (chronic obstructive pulmonary disease) Colon cancer Sibling Colon cancer Lung cancer Acute myocardial infarction COPD (chronic obstructive pulmonary disease) Sibling COPD (chronic obstructive pulmonary disease) Sibling Congestive heart failure Social History Social History Social History: The patient lives with his son and [id number]. Patient is a . The patient quit smoking in 2018. He also gave up alcohol many years ago. No marijuana or illicit drugs. The patient does not have a durable power ip attorney for healthcare. The patient desires to be a full code. 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 The patient has 5 biological children and raise 2 other children. Smoking packs per day: 2 Smoki
[2023-02-01 10:39] VITALS: BP 174/82; PULSE 80; RESP 18; O2SAT 97
== END 2023-02-01 10:41 | disposition home or self-care (01) ==
PROVIDERS: Emergency Provider Emergency Medicine; PCP Family Medicine Adolescent Medicine
DX: B02.9 Zoster without complications (principal); I11.0 Hypertensive heart disease with heart failure; I50.9 Heart failure, unspecified; J44.9 Chronic obstructive pulmonary disease, unspecified; I25.2 Old myocardial infarction; Z87.891 Personal history of nicotine dependence
CPT/HCPCS: 93005; 96374; 99284; A9270; J1170

== ENCOUNTER 2023-02-01 15:10 | Inpatient (IN) | payer MEDICARE, SELFPAY ==
[2023-02-01] VITALS (8 sets, daily range): BP systolic 114–199; BP diastolic 61–93; PULSE 62–83; RESP 11–16; TEMP 36.6; O2SAT 94–100
--- NOTE | ~2023-02-01 | CT_ITS ---
Noncontrast CT scan of the cervical spine Technique: Multiple contiguous axial [address] images of the cervical spine were obtained and rec onstructed in 2D sagittal and coronal planes on the acquisition scanner. Dose reduction technique was used on this scan by utilizing automated exposure control, adjustment of the mA and/or kV according to patient size. Clinical History: Pain Findings: No fractures or dislocations. There is moderate to advanced degenerative disc change at C5 -C6. There is uncovertebral degenerative change at C5-C6. There is advanced degenerative changes reti culation of the odontoid process with the anterior arch of C1. There is fusion of the left C2-C3 face t joint. There is degenerative facet arthropathy throughout the remaining facet joints in the cervica l spine. There is bilateral neural foraminal narrowing at C3-C4, C4-C5, C5-C6. There are disc osteoph yte complexes at C5-C6 and C6-C7, probable mild canal stenosis at C5-C6. No prevertebral soft tissue swelling. Impression: No fracture or subluxation of the cervical spine. Moderate to advanced degenerative spondylosis, as detailed above. Reviewed, dictated and finalized at location . Impression: No fracture or subluxation of the cervical spine. Moderate to advanced degenerative spondylosis, as detailed above.
--- NOTE | ~2023-02-01 | MR_ITS ---
EXAMINATION: MR brain/brain stem wo/w con DATE: 02/03/2023 12:19 INDICATION: Altered mental status. TECHNIQUE: Magnetic resonance imaging (MRI) of the brain and brainstem was performed without and with 19 mL MultiHance intravenous contrast. COMPARISON: Head CT 02/01/2023 FINDINGS: There are scattered areas of nonspecific increased T2-weighted signal intensity in the cere bral white matter. There is no intracranial hemorrhage, acute infarction, or abnormal intracranial ma ss lesion. The ventricles are normal in size. There are likely changes of ocular lens replacement dami geries. There is mild mucosal thickening in the paranasal sinuses. There is a left mastoid effusion. IMPRESSION: 1. Mild nonspecific cerebral white matter disease, which likely represents chronic small vessel ische preston disease. Reviewed, dictated and finalized at location A. IMPRESSION: 1. Mild nonspecific cerebral white matter disease, which likely represents alarm mechanic jeff small vessel ischemic disease.
--- NOTE | ~2023-02-01 | XR_ITS ---
Portable chest x-ray Comparison: 10/20/2021 Clinical History: Dizziness Findings: Lungs are clear, without focal consolidation or pleural effusion. Cardiomediastinal silho uette is stable. Bones and soft tissues are unremarkable. Impression: Clear lungs. Reviewed, dictated and finalized at location . Impression: Clear lungs.
--- NOTE | ~2023-02-01 | CT_ITS ---
Non-contrast Head CT History: Dizziness COMPARISON: 09/11/2021 Technique: Axial non-contrast imaging of the brain was performed. Dose reduction technique was used on this scan by utilizing automated exposure control and iterative reconstruction technique. The dose -length product (DLP) was 605.33 mGy-cm. Findings: There is no evidence of intracranial hemorrhage, mass lesion, or acute infarct. Brain par enchyma appears normal. The ventricles and subarachnoid spaces are normal in size. The calvarium ap pears normal. The visualized paranasal sinuses and mastoid air cells are clear. Impression: No significant abnormality seen. Reviewed, dictated and finalized at location . Impression: No significant abnormality seen.
--- NOTE | 2023-02-01 17:56 | ECG_ITS ---
Measurements Intervals [place] Rate: 60 P: 37 TN: 199 QRS: -20 QRSD: 125 T: 33 QT: 476 QTc: 478 Interpretive Statements SINUS RHYTHM BORDERLINE AV CONDUCTION DELAY RIGHT BUNDLE BRANCH BLOCK ABNORMAL ECG COMPARED TO ECG 02/01/2023 08:29:12 NO SIGNIFICANT CHANGES Electronically Signed On 02-01-2023 20:37:45 CDT by Tim Mary D.O.
--- NOTE | 2023-02-01 18:07 | ED.DIZZY ---
HPI - Dizziness General Chief Complaint: Dizziness Stated Complaint: Dizzy, lightheadedness Time Seen by Provider: 02/01/23 17:42 Source: family and RN notes reviewed History of Present Illness HPI Narrative: Patient presents emergency department from home for dizziness and falls. History is per the patient as well as the patient's son is present. Patient has a recent history of shingles he began to have back pain approximately 3 days ago and gone to see his PCP at that time he had had no rash and was started on steroids as he does have a history of chronic back pain the patient return to the emergency department today where the rash was now noted over his left upper back and chest that was consistent with shingles and was started on valacyclovir the patient has a history of chronic spinal stenosis and is on morphine and baclofen he is also given Dilaudid this morning. Per the family the patient has been more lethargic at home today and is fallen 3 times per the patient patient has not have abrasion on the left side of his face he denies any other injury from the fall he is currently awake and alert x2 family states he is normally more alert than this he denies any headache or any other areas of pain except for pain in his back and his chest he has had no fevers or chills he denies any chest pain shortness of breath abdominal pain nausea or vomiting or any other symptoms per the family the patient is normally in a wheelchair but will stand up as of it. Patient states he feels dizzy when he gets up Related Data Home Medications Medication Instructions Recorded Confirmed aspirin 81 mg tablet,delayed 81 mg PO DAILY 12/02/19 01/28/23 release (Aspir-) carvedilol 12.5 mg tablet (Coreg) 12.5 mg PO BID 12/02/19 01/28/23 finasteride 5 mg tablet 5 mg PO DAILY 12/02/19 01/28/23 guaifenesin 1,200 mg tablet, 1,200 mg PO BID 12/02/19 01/28/23 extended release 12 hr (Mucinex) losartan 50 mg tablet 50 mg PO DAILY 12/02/19 01/28/23 tiotropium bromide 2.5 2 puff inhalation DAILY 12/02/19 01/28/23 mcg/actuation mist for inhalation (Spiriva Respimat) acetaminophen 325 mg tablet 650 mg PO Q4H PRN Mild Pain 08/02/21 01/28/23 (Tylenol) psyllium seed (sugar) oral powder 1 tbsp PO DAILY 01/22/22 09/17/22 (Metamucil (sugar) oral powder) Allergies Allergy/AdvReac Type Severity Reaction Status Date / Time No Known Allergies Allergy Verified 02/01/23 15:10 Review of Systems Review of Systems: Gen.: Denies fevers or chills Eyes: Denies eye pain or visual change ENT: Denies congestion Respiratory: Denies shortness of breath or cough CV: Denies chest pain or palpitations GI: Denies abdominal pain nausea, emesis Musculoskeletal: Denies back pain or muscle pain Neuro: D reports dizziness Skin: Reports shingles Except as documented, all other systems reviewed and negative [facility] Past Medical History Medical History CHF (congestive heart failure), NYHA class I EF 45-50% 10/13 COPD (chronic obstructive pulmonary disease) GERD (gastroesophageal reflux disease) History of colon polyps History of poliomyelitis HTN (hypertension) Hx SBO (~05/2007) Normal colonoscopy 05/07 NSTEMI (non-ST elevated myocardial infarction) (~08/2019) Polio (~195) Surgical History Surgical History H/O rotator cuff surgery History of bowel resection History of colon resection History of coronary artery stent placement X2 History of mandibular surgery 1986 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 Bone removed from right hip for reconstructive surgery S/P tonsillectomy and adenoidectomy Family History Family History Mother Diabetes mellitus Acute myocardial infarction Father COPD (chronic obstructive pulmonary disease) Colon cancer Sibling Colon cancer Lung cancer
[2023-02-01] MEDS: SODIUM CHLORIDE 0.9% IV 1,000 ML 999 ML IV CONT (18:51)
[2023-02-01 19:15] LABS: Basophils Percent Auto 0.3 % (0.2-1.2); Eosinophils Percent Auto 0.2 % (0-4.4); Hematocrit 38.7 % (42.0-52.0); Hemoglobin 12.8 g/dL (14.0-18.0); Immature Granulocyte Absolute 0.04 K/mm3 (0.00-0.031); Immature Granulocyte Percent A 0.7 % (0-0.5); Lymphocytes Absolute Auto 0.96 K/mm3 (0.9-3.2); Lymphocytes Percent Auto 15.6 % (18.3-44.2); Mean Corpuscular HGB Conc 33.1 g/dl (32-36); Mean Corpuscular Hemoglobin 32.7 pg (26-34); Mean Corpuscular Volume 98.7 fl (80-100); Mean Platelet Volume 10.5 fl (7.4-10.4); Monocytes Absolute Auto 0.6 K/mm3 (0.1-0.6); Neutrophils Absolute Auto 4.6 K/mm3 (1.3-6.7); Neutrophils Percent Auto 74.2 % (45.5-73.1); Platelet Count Result 184 k/mm3 (150-375); Red Blood Count 3.92 M/mm3 (4.6-6.20); Red Cell Distribution Width 12.4 % (11.5-14.5); White Blood Count 6.1 K/mm3 (4.5-10.0)
[2023-02-01 19:25] LABS: Alanine Aminotransferase 34 U/L (6-50); Albumin Level 3.8 g/dL (3.5-5.1); Alkaline Phosphatase 87 U/L (38-126); Anion Gap 5 mmol/L (8-16); Aspartate Amino Transferase 33 U/L (17-59); Blood Urea Nitrogen 28 mg/dL (9-20); Calcium 8.3 mg/dL (8.4-10.2); Carbon Dioxide 28 mmol/L (22-30); Chloride 96 mmol/L (98-107); Estimated CRCL calculation 54 ml/min; Estimated Glomerular Filt Rate > 60; Glucose 133 mg/dL (65-110); Potassium 3.6 mmol/L (3.4-5.0); Sodium 129 mmol/L (137-145)
[2023-02-01 19:27] LABS: INR 1.2; Partial Thromboplastin Time 29.5 SECONDS (22.3-36.8); Prothrombin Time 14.6 Seconds (11.1-14.7)
[2023-02-01 19:36] LABS: Troponin I < 0.012 ng/mL (0.000-0.034)
[2023-02-01 20:00] LABS: Appearance Urine Clear (Clear); Bilirubin Urine Negative (Negative); Blood Urine Trace-intact (Negative); Color Urine Yellow (Yellow); Glucose Urine UA Negative (Negative); Ketones Urine Negative (Negative); Leukocyte Esterase Ur Negative LEU/UL (Negative); Nitrate Urine Negative (Negative); Protein Urine Negative (Negative); Urobilinogen Urine 0.2 mg/dL (<2.0)
[2023-02-01 20:14] LABS: Add Urine Microscopic? YES
[2023-02-01] MEDS: NALOXONE HCL 0.4 MG/ML VIAL IV PUSH (20:14)
[2023-02-01 20:15] LABS: Bacteria Urine Trace /hpf; Squamous Epithelial Cell Urine Rare /hpf (Few); WBC Urine 0-3 /hpf (0-3)
[2023-02-01 20:16] LABS: Hyaline Casts Urine 0-2 /lpf
[2023-02-01] MEDS: ONDANSETRON INJ 4 MG/2 ML VIAL IV PUSH (21:42)
--- NOTE | 2023-02-01 22:54 | PC.NURSE ---
Attempted to give report to ICU at this time. Receiving RN is busy and will call back when available.
--- NOTE | 2023-02-01 23:31 | ADMIMU ---
This patient, Russell Morse, was admitted to IMU status, and placed in Intensive Care Unit-1. Patient/family oriented to hospital policies and general routines including ID bracelet, bed and alarms, visiting hours, pain management, procedures, bathroom and other care routines, personal items, smoking policy, room service/diet, and visiting hours. Valuables list has been completed. Information on how to activate the Rapid Response Team has been discussed. Patient/Family are encouraged to report perceived risks to care and to ask questions if they do not understand what they are told or what they should do.
--- NOTE | 2023-02-01 23:46 | PM.IMHP ---
H&P: HPI History of Present Illness Date/Time: 02/01/23 23:46 Chief Complaint: Altered mental status Narrative: This is a 77-year-old male with past medical history significant for congestive heart failure, COPD/emphysema, GERD, hypertension. Patient was brought to the emergency room due to altered mental status confusion ataxia patient with active shingles. History has been obtained upon reviewing medical records emergency room doctor and sons were at bedside patient is confused unable to give any history is oriented only to person Review of Systems Review of Systems: ROS unobtainable: Yes unobtainable due to mental status (Confusion oriented only to self) [facility] Past Medical History Medical History CHF (congestive heart failure), NYHA class I EF 45-50% 10/13 COPD (chronic obstructive pulmonary disease) GERD (gastroesophageal reflux disease) History of colon polyps History of poliomyelitis HTN (hypertension) Hx SBO (~05/2007) Normal colonoscopy 05/07 NSTEMI (non-ST elevated myocardial infarction) (~08/2019) Polio (~195) Surgical History Surgical History H/O rotator cuff surgery History of bowel resection History of colon resection History of coronary artery stent placement X2 History of mandibular surgery 1986 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 Bone removed from right hip for reconstructive surgery S/P tonsillectomy and adenoidectomy Family History Family History Mother Diabetes mellitus Acute myocardial infarction Father COPD (chronic obstructive pulmonary disease) Colon cancer Sibling Colon cancer Lung cancer Acute myocardial infarction COPD (chronic obstructive pulmonary disease) Sibling COPD (chronic obstructive pulmonary disease) Sibling Congestive heart failure Social History Social History Social History: The patient lives with his son and [id number]. Patient is a . The patient quit smoking in 2018. He also gave up alcohol many years ago. No marijuana or illicit drugs. The patient does not have a durable power business attorney for healthcare. The patient desires to be a full code. 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 The patient has 5 biological children and raise 2 other children. Smoking packs per day: 2 Smoking cigarettes per day: 40.0 Years smoked: 60 Smoking pack-years: 120.00 Smoking status: Former smoker Tobacco type: cigarettes Second hand tobacco smoke exposure: No Smoking end date: 09/16/17 Alcohol intake: former Substance use: never Substance use type: does not use Last use: Last alcohol use 2010 Living arrangements: with family 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: retired Gender identity (if verbalized by the patient): Male Sexual Orientation (if Verbalized by the Patient): Straight or Heterosexual Spiritual care concerns: No Agree to blood products: Yes Meds Home Medications and Allergies Home Medications Medication Instructions Recorded Confirmed Type aspirin 81 mg tablet,delayed 81 mg PO DAILY 12/02/19 02/01/23 History release (Aspir-) losartan 50 mg tablet 50 mg PO DAILY 12/02/19 02/01/23 History bupropion HCl 150 mg tablet,12 hr 150 mg PO BID #180 tabs 04/25/22 02/01/23 Rx sustained-release fenofibrate 160 mg tablet 160 mg PO DAILY #90 tabs 05/27/22 02/01/23 Rx baclofen 10 mg tablet 10 mg PO QHS PRN pain #30 tabs 11/06/22 02/01/23 Rx budesonide-formoterol HFA 160 2 puff inhalation Q12H #10.2 grams 11/07/22 02/01/23 Rx mcg-4.5 mcg/actuation aerosol inhaler (Symbicort) furosemide 40 mg tablet 40 mg PO DAILY #90 tabs 11/28/22 02/01/23 Rx trazodone 100 mg tablet 100 mg PO HS #30 tabs 12/11/22 02/01/23 Rx sulindac 200 mg tablet 200 mg PO BID #180 tab
--- NOTE | 2023-02-01 23:50 | PC.NURSE ---
Attempted to get admission information from children Marco and Rosi, left messages on both of their phones. Pt unable to give much information due to orientation status.
[2023-02-02] VITALS (13 sets, daily range): BP systolic 107–199; BP diastolic 56–102; PULSE 63–99; RESP 13–16; TEMP 36.4–36.7; O2SAT 94–98; BMI 27.4
[2023-02-02] MEDS: ONDANSETRON INJ 4 MG/2 ML VIAL IV PUSH ×2 (03:06→13:51)
[2023-02-02 04:34] LABS: Basophils Percent Auto 0.1 % (0.2-1.2); Eosinophils Percent Auto 0.4 % (0-4.4); Hematocrit 41.5 % (42.0-52.0); Immature Granulocyte Absolute 0.06 K/mm3 (0.00-0.031); Immature Granulocyte Percent A 0.8 % (0-0.5); Lymphocytes Percent Auto 17.8 % (18.3-44.2); Mean Corpuscular HGB Conc 33.7 g/dl (32-36); Mean Corpuscular Hemoglobin 32.7 pg (26-34); Mean Platelet Volume 10.2 fl (7.4-10.4); Monocytes Absolute Auto 0.8 K/mm3 (0.1-0.6); Monocytes Percent Auto 10.3 % (2.6-8.5); Neutrophils Absolute Auto 5.2 K/mm3 (1.3-6.7); Neutrophils Percent Auto 70.6 % (45.5-73.1); Platelet Count Result 231 k/mm3 (150-375); Red Blood Count 4.28 M/mm3 (4.6-6.20); Red Cell Distribution Width 12.3 % (11.5-14.5); White Blood Count 7.3 K/mm3 (4.5-10.0)
[2023-02-02 04:44] LABS: Alanine Aminotransferase 36 U/L (6-50); Albumin Level 4.2 g/dL (3.5-5.1); Alkaline Phosphatase 106 U/L (38-126); Anion Gap 5 mmol/L (8-16); Aspartate Amino Transferase 37 U/L (17-59); Bilirubin,Total 0.9 mg/dL (0.2-1.3); Blood Urea Nitrogen 23 mg/dL (9-20); Calcium 8.8 mg/dL (8.4-10.2); Carbon Dioxide 30 mmol/L (22-30); Chloride 95 mmol/L (98-107); Estimated CRCL calculation 65 ml/min; Estimated Glomerular Filt Rate > 60; Glucose 130 mg/dL (65-110); Potassium 3.5 mmol/L (3.4-5.0); Sodium 130 mmol/L (137-145)
[2023-02-02] MEDS: hydrALAZINE HCL 20 MG/ML VIAL 10 MG IV PUSH (04:54)
[2023-02-02] MEDS: PROMETHAZINE HCL 25 MG/ML AMPUL 12.5 MG IM ×2 (04:59→10:02)
[2023-02-02] MEDS: BACLOFEN 10 MG TABLET PO ×2 (06:10→23:15)
[2023-02-02] MEDS: HYDROmorphone HCL INJ (*CRX) 1 MG/ML SYR IV PUSH (06:11)
[2023-02-02] MEDS: LINACLOTIDE 145 MCG CAPSULE 290 MCG PO (06:41)
[2023-02-02] MEDS: FLUTICASONE/SALMETEROL 115-21 MCG INHALER 1 PUFF 2 PUFF INHALATION ×2 (08:50→20:35)
--- NOTE | 2023-02-02 09:18 | PHAR ---
The patient's home med of Sulindac 200mg tab has been verified.
[2023-02-02] MEDS: FENOFIBRATE 160 MG TABLET PO (09:19)
[2023-02-02] MEDS: LOSARTAN POTASSIUM 50 MG TABLET PO (09:19)
[2023-02-02] MEDS: buPROPion HCL SR (12 HR) 150 MG TAB PO ×2 (09:19→20:38)
[2023-02-02] MEDS: ATORVASTATIN 40 MG TABLET 80 MG PO (09:19)
[2023-02-02] MEDS: ASPIRIN 81 MG ENTERIC TABLET PO (09:19)
[2023-02-02] MEDS: predniSONE 10 MG TABLET 40 MG PO (09:21)
[2023-02-02] MEDS: MORPHINE SULFATE (*CRX) 15 MG TABCR 30 MG PO ×2 (10:01→20:37)
--- NOTE | 2023-02-02 10:17 | WPDNEURCNPN ---
Assessment and Plan Assessment and plan (1) Acute alteration in mental status: Code(s): R41.82 - Altered mental status, unspecified Status: Acute (2) Herpes zoster: Code(s): B02.9 - Zoster without complications Status: Acute (3) Other chronic pain: Code(s): G89.29 - Other chronic pain Status: Acute Plan Russell Morse is a 77 year old male with a history of CHF, COPD, HTN, chronic back pain, NSTEMI presenting due to altered mental status. Concern for medication effect (dilaudid, morphine, baclofen) vs herpes encephalitis. - Continue acyclovir - MRI brain with and without contrast Consult date: 02/02/23 Reason for consult: Altered mental status HPI: Russell Morse is a 77 year old male with a history of CHF, COPD, HTN, chronic back pain, NSTEMI presenting due to altered mental status. Patient presented a few days ago due the rash over the left chest. He was evaluated by his PCP and started on steroids. However, patient went to [facility] on 01/31 due to progression of rash. Due to concerns for shingles, patient was started on valacyclovir and discharged. Of note, patient takes morphine and baclofen for chronic back pain due to spinal stenosis. He had also received a dose of Dilaudid that morning. Patient went home, but family noted that patient wa smore lethargic than usual and had fallen three times. At baseline he is completed AOx3, but on presentation later in the evening, he was only AOx2 (self and location). He denied any headache, fever, or chills. Patient's steroids were held and he was started on IV acyclovir and subsequently admitted. CT head and labs were unrevealing. Review of Systems Constitutional: Constitutional: Reports no additional constitutional complaints Eyes: Eyes: Reports no additional eye complaints ENT: Reports system reviewed and no additional complaints, except as documented Cardiovascular: Cardiovascular: Reports no additional cardiovascular complaints Respiratory: Respiratory: Reports no additional respiratory complaints Gastrointestinal: Gastrointestinal: Reports no additional gastrointestinal complaints Genitourinary: Genitourinary: Reports no additional male genitourinary complaints Musculoskeletal: Musculoskeletal: Reports no additional musculoskeletal complaints Integumentary/Breasts: Skin/Breast: Reports pruritus and Reports rash Neurologic: Reports as per HPI and Reports confusion Psychiatric: Psychiatric: Reports no additional psychiatric complaints and Reports confusion PMFSH Past Medical History Medical History CHF (congestive heart failure), NYHA class I EF 45-50% 10/13 COPD (chronic obstructive pulmonary disease) GERD (gastroesophageal reflux disease) History of colon polyps History of poliomyelitis HTN (hypertension) Hx SBO (~05/2007) Normal colonoscopy 05/07 NSTEMI (non-ST elevated myocardial infarction) (~08/2019) Polio (~195) Surgical History Surgical History H/O rotator cuff surgery History of bowel resection History of colon resection History of coronary artery stent placement X2 History of mandibular surgery 1986 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 Bone removed from right hip for reconstructive surgery S/P tonsillectomy and adenoidectomy Family History Family History Mother Diabetes mellitus Acute myocardial infarction Father COPD (chronic obstructive pulmonary disease) Colon cancer Sibling Colon cancer Lung cancer Acute myocardial infarction COPD (chronic obstructive pulmonary disease) Sibling COPD (chronic obstructive pulmonary disease) Sibling Congestive heart failure Social History Social History Social History: The patient lives with his son and [id number]. Gavin
[2023-02-02] MEDS: amLODIPine BESYLATE 5 MG TABLET PO (11:01)
--- NOTE | 2023-02-02 12:18 | PM.IMPN ---
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 (3) Herpes zoster: Code(s): B02.9 - Zoster without complications Status: Acute Assessment and Plan: Local care Supportive care On acyclovir (4) Aortic stenosis: Code(s): I35.0 - Nonrheumatic aortic (valve) stenosis Status: Acute Assessment and Plan: Continue to monitor (5) Ischemic cardiomyopathy: Code(s): I25.5 - Ischemic cardiomyopathy Status: Acute Assessment and Plan: Resume home meds Continue to monitor (6) Primary osteoarthritis, left shoulder: Code(s): M19.012 - Primary osteoarthritis, left shoulder Status: Acute Assessment and Plan: Tylenol as needed (7) Spinal stenosis, lumbar region without neurogenic claudication: Code(s): M48.061 - Spinal stenosis, lumbar region without neurogenic claudication Status: Acute Assessment and Plan: Fall precautions (8) CHF (congestive heart failure), NYHA class I: Code(s): I50.9 - Heart failure, unspecified Status: Chronic Assessment and Plan: Patient appears euvolemic (9) GERD (gastroesophageal reflux disease): Code(s): K21.9 - Gastro-esophageal reflux disease without esophagitis Status: Chronic Assessment and Plan: PPI Subjective Date/time seen: 02/02/23 12:18 No complaints Exam Narrative: Patient is sitting in semi upright position stretcher Const: General: comfortable, no acute distress, well developed, alert, awake, confusion and average body habitus Nutritional Appearance: average body habitus Orientation/consciousness: oriented to person, patient oriented x3 and confusion HENMT: Head: normal to inspection, normocephalic and atraumatic Ears: hearing grossly normal bilaterally Face/Nose/Sinus: normal facial exam Face and sinus: normal facial exam Eyes: General: appearance normal, both eyes and all related structures Pupils: Equal, round and reactive pupils present EOM: EOMs intact bilaterally Neck: Neck: full ROM, no lymphadenopathy and no JVD Thyroid: thyroid normal Lymphatic: no lymphadenopathy noted Chest: Other: Vesicles and papules present Resp: Effort & Inspection: normal respiratory effort and able to speak in complete sentences Auscultation: clear to auscultation bilaterally Cardio: Jugular venous distension: no JVD Rate: regular rate Rhythm: regular rhythm Heart sounds: S1 normal heart sound present and S2 normal heart sound present : General: Yes deferred Skin: General skin exam: rashes (Vesicles and papules present in the thorax) Rashes: rashes noted (Vesicles and papules present in the thorax) Wounds: no wounds Neuro: General: oriented to person, patient oriented x3, moves all extremities, CN's II-XI intact bilaterally, confusion, Unable to assess gait and other (Ataxia) Cranial nerves: Yes CN's II-XII intact bilaterally and Yes Equal, round and reactive pupils present Cognition (Neuro): abnormal cognition (Confusion, delirium) Speech: normal speech Gait exam (Neuro): Unable to assess gait Motor exam (neuro): 5/5 motor strength present throughout, No No tremor noted and fasciculations noted Other: Ataxia Extrem: General: normal to inspection, full ROM, no joint enlargement and no pedal edema Objective Data Vital Signs Vital Signs: Vital Signs - 24 hr 02/01/23 15:31 02/01/23 17:47 02/01/23 18:30 Temperature 97.9 F Pulse Rate 68 72 67 Respiratory Rate 16 12 15 Blood Pressure 174/72 H 199/91 H 179/84 H Pulse Oximetry 94 100 94 Oxyge
[2023-02-02] MEDS: ACETAMINOPHEN 325 MG TABLET 650 MG PO (13:50)
--- NOTE | 2023-02-02 15:58 | PCCCNOTE ---
On 02/02/23, the student, [Apurva Carlson ], provided care and [facility]. I have reviewed the student's documentation and agree with the findings.
[2023-02-02] MEDS: traZODone HCL 50 MG TABLET 100 MG PO (20:37)
[2023-02-03] VITALS (10 sets, daily range): BP systolic 94–143; BP diastolic 50–83; PULSE 58–93; RESP 11–19; TEMP 36.4–36.9; O2SAT 92–99
[2023-02-03] MEDS: LINACLOTIDE 145 MCG CAPSULE 290 MCG PO (06:06)
[2023-02-03] MEDS: ATORVASTATIN 40 MG TABLET 80 MG PO (08:03)
[2023-02-03] MEDS: buPROPion HCL SR (12 HR) 150 MG TAB PO ×2 (08:03→20:58)
[2023-02-03] MEDS: FENOFIBRATE 160 MG TABLET PO (08:03)
[2023-02-03] MEDS: amLODIPine BESYLATE 5 MG TABLET PO (08:04)
[2023-02-03] MEDS: LOSARTAN POTASSIUM 50 MG TABLET PO (08:04)
[2023-02-03] MEDS: ASPIRIN 81 MG ENTERIC TABLET PO (08:04)
[2023-02-03] MEDS: predniSONE 10 MG TABLET 40 MG PO (08:05)
[2023-02-03] MEDS: MORPHINE SULFATE (*CRX) 15 MG TABCR 30 MG PO ×2 (08:07→20:58)
[2023-02-03] MEDS: FLUTICASONE/SALMETEROL 115-21 MCG INHALER 1 PUFF 2 PUFF INHALATION ×2 (08:35→19:39)
--- NOTE | 2023-02-03 09:33 | WPDNEUROPN ---
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 Concern for medication effect (dilaudid, morphine, baclofen) vs herpes encephalitis. Mental status has improved and patient seems close to baseline. No cultures were obtained prior to acyclovir. Seems like he did have improvement, although it is unclear whether this is related to wearing off of sedating medications or effect of acyclovir. - Will defer length of acyclovir treatment to primary service - MRI brain with and without contrast Subjective Date/time seen: 02/03/23 09:33 Interval history: Russell oMrse is a 77 year old male with a history of CHF, COPD, HTN, chronic back pain, NSTEMI presenting due to altered mental status. Patient presented a few days ago due the rash over the left chest. He was evaluated by his PCP and started on steroids. However, patient went to [facility] on 01/31 due to progression of rash. Due to concerns for shingles, patient was started on valacyclovir and discharged. Of note, patient takes morphine and baclofen for chronic back pain due to spinal stenosis. He had also received a dose of Dilaudid that morning. Patient went home, but family noted that patient was more lethargic than usual and had fallen three times. At baseline he is completed AOx3, but on presentation later in the evening, he was only AOx2 (self and location). He denied any headache, fever, or chills. Patient's steroids were held and he was started on IV acyclovir and subsequently admitted. CT head and labs were unrevealing. Patient still in the ICU. He reports body jerking and neck stiffness. Also having some dizziness. Otherwise feeling fairly well. Review of Systems Constitutional: Constitutional: Reports no additional constitutional complaints Eyes: Eyes: Reports no additional eye complaints ENT: Reports system reviewed and no additional complaints, except as documented Cardiovascular: Cardiovascular: Reports no additional cardiovascular complaints Respiratory: Respiratory: Reports no additional respiratory complaints Gastrointestinal: Gastrointestinal: Reports no additional gastrointestinal complaints Genitourinary: Genitourinary: Reports no additional male genitourinary complaints Musculoskeletal: Musculoskeletal: Reports neck pain and Reports stiffness Integumentary/Breasts: Skin/Breast: Reports pruritus and Reports rash Neurologic: Reports as per HPI and Reports confusion Psychiatric: Psychiatric: Reports no additional psychiatric complaints and Reports confusion Exam Const: General: comfortable and no acute distress HENMT: Mouth: Yes moist mucous membranes Eyes: Pupils: Equal, round and reactive pupils present EOM: EOMs intact bilaterally Resp: Effort & Inspection: normal respiratory effort Auscultation: clear to auscultation bilaterally Cardio: Rate: regular rate Rhythm: regular rhythm GI: GI Palp: Yes Soft to palpation Auscultation: normal bowel sounds Skin: General skin exam: normal color Neuro: Other: AOx3, Pupils equal and reactive bilaterally, EOMI, face symmetric. Strength is age appropriate throughout. Sensation intact throughout. Following commands, comprehension intact, able to respond fluently. Gait deferred. Extrem: General: normal to inspection Psych: Mental Status: mental status grossly normal Affect: normal affect Objective Data Vital Signs Vital Signs: Vital Signs - 24 hr 02/02/23 10:00 02/02/23 12:00 02/02/23 12:00 Temperature 36.6 C Pulse Rate 67 66 81 Respiratory Rate 15 Blood Pressure 107/60 Pulse Oximetry 94 Oxygen Delivery Fraction of Inspired Oxygen
--- NOTE | 2023-02-03 11:21 | PM.DS ---
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 (3) Herpes zoster: Code(s): B02.9 - Zoster without complications Status: Acute Assessment and Plan: Local care Supportive care On acyclovir (4) Aortic stenosis: Code(s): I35.0 - Nonrheumatic aortic (valve) stenosis Status: Acute Assessment and Plan: Continue to monitor (5) Ischemic cardiomyopathy: Code(s): I25.5 - Ischemic cardiomyopathy Status: Acute Assessment and Plan: Resume home meds Continue to monitor (6) Primary osteoarthritis, left shoulder: Code(s): M19.012 - Primary osteoarthritis, left shoulder Status: Acute Assessment and Plan: Tylenol as needed (7) Spinal stenosis, lumbar region without neurogenic claudication: Code(s): M48.061 - Spinal stenosis, lumbar region without neurogenic claudication Status: Acute Assessment and Plan: Fall precautions (8) CHF (congestive heart failure), NYHA class I: Code(s): I50.9 - Heart failure, unspecified Status: Chronic Assessment and Plan: Patient appears euvolemic (9) GERD (gastroesophageal reflux disease): Code(s): K21.9 - Gastro-esophageal reflux disease without esophagitis Status: Chronic Assessment and Plan: PPI DS: Summary Hospital Course Hospital Course: 77-year-old gentleman came in with altered mental status. Workup was unrevealing. Appreciate Neurology consultation. Patient will need to follow up with Neurology. Altered mental status likely related to medication. Patient relates received several doses of pain medication and yesterday in the ER and then was sent home he took is on morphine. He was also recently started on benzonatate. Question of these could cause of altered mental status please back to baseline now. He can be discharged Time Spent with Patient Time attestation: Total time spent providing and/or coordinating discharge services: Exam Narrative: Patient is sitting in semi upright position stretcher Const: General: comfortable, no acute distress, well developed, alert, awake, confusion and average body habitus Nutritional Appearance: average body habitus Orientation/consciousness: oriented to person, patient oriented x3 and confusion HENMT: Head: normal to inspection, normocephalic and atraumatic Ears: hearing grossly normal bilaterally Face/Nose/Sinus: normal facial exam Face and sinus: normal facial exam Eyes: General: appearance normal, both eyes and all related structures Pupils: Equal, round and reactive pupils present EOM: EOMs intact bilaterally Neck: Neck: full ROM, no lymphadenopathy and no JVD Thyroid: thyroid normal Lymphatic: no lymphadenopathy noted Chest: Other: Vesicles and papules present Resp: Effort & Inspection: normal respiratory effort and able to speak in complete sentences Auscultation: clear to auscultation bilaterally Cardio: Jugular venous distension: no JVD Rate: regular rate Rhythm: regular rhythm Heart sounds: S1 normal heart sound present and S2 normal heart sound present : General: Yes deferred Skin: General skin exam: rashes (Vesicles and papules present in the thorax) Rashes: rashes noted (Vesicles and papules present in the thorax) Wounds: no wounds Neuro: General: oriented to person, patient oriented x3, moves all extremities, CN's II-XI intact bilaterally, confusion, Unable to assess gait and other
--- NOTE | 2023-02-03 15:42 | PM.IMPN ---
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 benzonatate vs receiving narcotic iv in er and taking home narcotic when he got home will let him stay in hospital one more day and work with pt likely dc tomorrow family states his mental status is essentially back to normal (3) Herpes zoster: Code(s): B02.9 - Zoster without complications Status: Acute Assessment and Plan: Local care Supportive care On acyclovir (4) Aortic stenosis: Code(s): I35.0 - Nonrheumatic aortic (valve) stenosis Status: Acute Assessment and Plan: Continue to monitor (5) Ischemic cardiomyopathy: Code(s): I25.5 - Ischemic cardiomyopathy Status: Acute Assessment and Plan: Resume home meds Continue to monitor (6) Primary osteoarthritis, left shoulder: Code(s): M19.012 - Primary osteoarthritis, left shoulder Status: Acute Assessment and Plan: Tylenol as needed (7) Spinal stenosis, lumbar region without neurogenic claudication: Code(s): M48.061 - Spinal stenosis, lumbar region without neurogenic claudication Status: Acute Assessment and Plan: Fall precautions (8) CHF (congestive heart failure), NYHA class I: Code(s): I50.9 - Heart failure, unspecified Status: Chronic Assessment and Plan: Patient appears euvolemic (9) GERD (gastroesophageal reflux disease): Code(s): K21.9 - Gastro-esophageal reflux disease without esophagitis Status: Chronic Assessment and Plan: PPI Plan likely dc tomorrow Subjective Date/time seen: 02/03/23 15:42 no new complaints much more alert today still unsteady on his feet which is slightly worse than baseline mri noted Exam Narrative: Patient is sitting in semi upright position stretcher Const: General: comfortable, no acute distress, well developed, alert, awake, confusion and average body habitus Nutritional Appearance: average body habitus Orientation/consciousness: oriented to person, patient oriented x3 and confusion HENMT: Head: normal to inspection, normocephalic and atraumatic Ears: hearing grossly normal bilaterally Face/Nose/Sinus: normal facial exam Face and sinus: normal facial exam Eyes: General: appearance normal, both eyes and all related structures Pupils: Equal, round and reactive pupils present EOM: EOMs intact bilaterally Neck: Neck: full ROM, no lymphadenopathy and no JVD Thyroid: thyroid normal Lymphatic: no lymphadenopathy noted Chest: Other: Vesicles and papules present Resp: Effort & Inspection: normal respiratory effort and able to speak in complete sentences Auscultation: clear to auscultation bilaterally Cardio: Jugular venous distension: no JVD Rate: regular rate Rhythm: regular rhythm Heart sounds: S1 normal heart sound present and S2 normal heart sound present : General: Yes deferred Skin: General skin exam: rashes (Vesicles and papules present in the thorax) Rashes: rashes noted (Vesicles and papules present in the thorax) Wounds: no wounds Neuro: General: oriented to person, patient oriented x3, moves all extremities, CN's II-XI intact bilaterally, confusion, Unable to assess gait and other (Ataxia) Cranial nerves: Yes CN's II-XII intact bilaterally and Yes Equal, round and reactive pupils present Cognition (Neuro): abnormal cognition (Confusion, delirium) Speech: normal speech Gait exam (Neuro): Unable to assess gait Motor exam (neuro): 5/5 motor strength present throughout, No No tremor noted and fasciculations noted Other:
[2023-02-03] MEDS: traZODone HCL 50 MG TABLET 100 MG PO (20:58)
[2023-02-03] MEDS: polyethylene glycoL 3350 17 GM POWD.PACK PO (20:58)
[2023-02-03] MEDS: BACLOFEN 10 MG TABLET PO (22:48)
[2023-02-04] VITALS (7 sets, daily range): BP systolic 122–145; BP diastolic 57–76; PULSE 60–83; RESP 17–19; TEMP 36.4–36.9; O2SAT 91–96
[2023-02-04] MEDS: LINACLOTIDE 145 MCG CAPSULE 290 MCG PO (05:16)
[2023-02-04] MEDS: ACETAMINOPHEN 325 MG TABLET 650 MG PO ×2 (06:08→20:18)
[2023-02-04 07:23] LABS: Anion Gap 5 mmol/L (8-16); Blood Urea Nitrogen 32 mg/dL (9-20); Calcium 8.7 mg/dL (8.4-10.2); Carbon Dioxide 30 mmol/L (22-30); Chloride 95 mmol/L (98-107); Estimated CRCL calculation 43 ml/min; Estimated Glomerular Filt Rate 49; Glucose 159 mg/dL (65-110); Potassium 3.5 mmol/L (3.4-5.0); Sodium 130 mmol/L (137-145)
[2023-02-04] MEDS: predniSONE 10 MG TABLET 20 MG PO (08:13)
[2023-02-04] MEDS: LOSARTAN POTASSIUM 50 MG TABLET PO (08:14)
[2023-02-04] MEDS: buPROPion HCL SR (12 HR) 150 MG TAB PO ×2 (08:14→20:18)
[2023-02-04] MEDS: ASPIRIN 81 MG ENTERIC TABLET PO (08:14)
[2023-02-04] MEDS: ATORVASTATIN 40 MG TABLET 80 MG PO (08:14)
[2023-02-04] MEDS: amLODIPine BESYLATE 5 MG TABLET PO (08:14)
[2023-02-04] MEDS: FENOFIBRATE 160 MG TABLET PO (08:14)
[2023-02-04] MEDS: MORPHINE SULFATE (*CRX) 15 MG TABCR 30 MG PO (08:15)
[2023-02-04] MEDS: FLUTICASONE/SALMETEROL 115-21 MCG INHALER 1 PUFF 2 PUFF INHALATION ×2 (08:22→20:53)
--- NOTE | 2023-02-04 11:36 | PM.IMPN ---
Progress Note: A&P Assessment and Plan (1) Acute alteration in mental status: Code(s): R41.82 - Altered mental status, unspecified Status: Acute Assessment and Plan: Patient diagnosed with shingles on the morning of 02/01. He was started on valacyclovir and was also given Dilaudid that morning.? Per the family the patient was more lethargic at home and had fallen 3 times. No LP perfomred. He was started on IV acyclovir. Othe providers did not feel this was herpes encephalitis and more likely drug reaction ? benzonatate vs receiving narcotic in ER and taking home narcotic when he got home. Also consider related to the anti-viral medications as well. He is oriented x4 now but he does not feel he is ready to be home. Continue PT/OT. Cut Trazodone dose down. Hold Baclofen. Discussed case with son in the room. It appears the patient only takes the MS Contin once daily in the morning (not BID as the bottle states). Will change this to daily and monitor for now. (2) SANDI (acute kidney injury): Code(s): N17.9 - Acute kidney failure, unspecified Status: Acute Assessment and Plan: Cr climbed to 1.4 today. No recent contrast exposure. Eating well so unlikely dehydration. On Sulidac which we will hold. His lasix already on hold. Repeat UA. Consider Renal US. Sodium low so will also check Urine Cr and Na. (3) Herpes zoster: Code(s): B02.9 - Zoster without complications Status: Acute Assessment and Plan: lesions are dry now. Continue antiviral treatment and supportive care. Stop steroids. 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 [place] unlikely he has encephalitis. (5) Ischemic cardiomyopathy: Code(s): I25.5 - Ischemic cardiomyopathy Status: Acute Assessment and Plan: Hx of iCMP. EF 68% in March 2022. Continue home meds Continue to monitor (6) Primary osteoarthritis, left shoulder: Code(s): M19.012 - Primary osteoarthritis, left shoulder Status: Acute Assessment and Plan: Tylenol as needed (7) Spinal stenosis, lumbar region without neurogenic claudication: Code(s): M48.061 - Spinal stenosis, lumbar region without neurogenic claudication Status: Acute Assessment and Plan: Patient on chronic narcotics for spinal stenosis. Continue fall precautions. (8) CHF (congestive heart failure), NYHA class I: Code(s): I50.9 - Heart failure, unspecified Status: Chronic Assessment and Plan: Patient appears euvolemic. Follow (9) Aortic stenosis: Code(s): I35.0 - Nonrheumatic aortic (valve) stenosis Status: Acute Assessment and Plan: Mild with moderate AI by Echo in March 2022. Doubt this is contributing to his symptoms. Continue to monitor. Subjective Date/time seen: 02/04/23 11:36 Interval history: 77yo male with a history of CHF, COPD, HTN, chronic back pain, CAD/NSTEMI here for altered mental status. Patient recently diagnosed with shingles and started on valacyclovir. Assuming care. Chart reviewed. Patient states he does not feel focused . He feels dizzy but denies lightheadedness or room spinning. Was able to ambulate in the room with a walker with therapy today. No headaches. No neck stiffness. No Chest pain. He states he does not feel safe to be home at this time. No dysuria or heamturia. Exam Narrative: AF 97.6 130/76 77 18 93% ra Gen - NARD sitting up in chair Chest - CTA bilaterally, nml RR CV - RRR S1/S2 Abd - Soft, NT/ND, Positive BS Ext - No pedal edema Neuro - Alert and oriented x4. UE strength 5/5. Hip flexor 4/5 right and 5/5 left. Psych - Nml mood and affect Skin - dry, confluent purplish/red rash confined to left T5 dermatome consistent with shingles. Objective Data Vital Signs Vital Signs: Vital Signs - 24 hr 02/03
[2023-02-04] MEDS: PANTOPRAZOLE 40 MG TABLET PO (12:57)
[2023-02-04 15:51] LABS: Appearance Urine Clear (Clear); Bacteria Urine 3+ /hpf; Bilirubin Urine Negative (Negative); Blood Urine Negative (Negative); Color Urine Yellow (Yellow); Glucose Urine UA Negative (Negative); Hyaline Casts Urine Present /lpf; Ketones Urine Negative (Negative); Leukocyte Esterase Ur Trace LEU/UL (Negative); Need Manual Microscopic Reviewed; Nitrate Urine Negative (Negative); Protein Urine Negative (Negative); RBC Urine 0-2 /hpf (0-2); Squamous Epithelial Cell Urine None seen /hpf (Few); WBC Urine 0-5 /hpf; pH Urine 5.5 (5.0-9.0)
[2023-02-04 15:55] LABS: Add Urine Microscopic? YES
[2023-02-04 16:27] LABS: Creatinine Urine 56.6 mg/dL
[2023-02-04 16:36] LABS: Sodium Urine Random 9 meq/L
[2023-02-04] MEDS: polyethylene glycoL 3350 17 GM POWD.PACK PO (20:17)
[2023-02-04] MEDS: valACYclovir HCL 500 MG TABLET 1000 MG PO (20:18)
[2023-02-04] MEDS: traZODone HCL 25 MG TABLET 75 MG PO (20:21)
[2023-02-05 04:00] VITALS: BP 149/71; PULSE 82; RESP 20; O2SAT 96
[2023-02-05 04:53] LABS: Albumin Level 3.6 g/dL (3.5-5.1); Anion Gap 3 mmol/L (8-16); Blood Urea Nitrogen 36 mg/dL (9-20); Calcium 8.8 mg/dL (8.4-10.2); Carbon Dioxide 33 mmol/L (22-30); Chloride 100 mmol/L (98-107); Estimated CRCL calculation 43 ml/min; Estimated Glomerular Filt Rate 49; Glucose 126 mg/dL (65-110); Phosphorus 2.9 mg/dL (2.5-4.5); Potassium 3.9 mmol/L (3.4-5.0); Sodium 136 mmol/L (137-145)
[2023-02-05] MEDS: ACETAMINOPHEN 325 MG TABLET 650 MG PO ×2 (05:36→15:22)
[2023-02-05] MEDS: LINACLOTIDE 145 MCG CAPSULE 290 MCG PO (05:37)
[2023-02-05 05:59] LABS: Folic Acid 11.6 ng/mL (2.76->20)
[2023-02-05] MEDS: FLUTICASONE/SALMETEROL 115-21 MCG INHALER 1 PUFF 2 PUFF INHALATION ×2 (07:49→20:07)
[2023-02-05 08:00] VITALS: BP 156/64; PULSE 79; RESP 20; TEMP 36.8; O2SAT 96
--- NOTE | 2023-02-05 08:31 | PM.IMPN ---
Progress Note: A&P Assessment and Plan (1) Acute alteration in mental status: Code(s): R41.82 - Altered mental status, unspecified Status: Acute Assessment and Plan: Patient diagnosed with shingles on the morning of 02/01. He was started on valacyclovir and was also given Dilaudid that morning.? Per the family the patient was more lethargic at home and had fallen 3 times so returned to ED later on the same day. He was confused. No LP performed. He was started on IV acyclovir. Other providers did not feel this was herpes encephalitis and more likely related to medications. Also consider related to the anti-viral medications as well. His mental status improved but still felt weak. It was discovered that he only takes the MS Contin once daily (not BID as listed on bottle). Dose changed to home dose and he is now feeling much better. We aslo cut Trazodone dose down and held Baclofen. Follow (2) SANDI (acute kidney injury): Code(s): N17.9 - Acute kidney failure, unspecified Status: Acute Assessment and Plan: Cr climbed to 1.4 yesterday. No recent contrast exposure. On Sulidac which was held. His lasix already on hold. Repeat UA noted but this did not prompt culture. Urine sodium low so consider dehydration. Creatinine unchanged today. Will give NS for 500mL. (3) Herpes zoster: Code(s): B02.9 - Zoster without complications Status: Acute Assessment and Plan: Lesions are dry. Continue antiviral treatment and supportive care. 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 [place] unlikely he has encephalitis. (5) Ischemic cardiomyopathy: Code(s): I25.5 - Ischemic cardiomyopathy Status: Acute Assessment and Plan: Hx of iCMP. EF 68% in March 2022. Continue home meds Continue to monitor (6) Primary osteoarthritis, left shoulder: Code(s): M19.012 - Primary osteoarthritis, left shoulder Status: Acute Assessment and Plan: Tylenol as needed (7) Spinal stenosis, lumbar region without neurogenic claudication: Code(s): M48.061 - Spinal stenosis, lumbar region without neurogenic claudication Status: Acute Assessment and Plan: Patient on chronic narcotics for spinal stenosis. Continue fall precautions. (8) CHF (congestive heart failure), NYHA class I: Code(s): I50.9 - Heart failure, unspecified Status: Chronic Assessment and Plan: Patient appears euvolemic. Follow. (9) Aortic stenosis: Code(s): I35.0 - Nonrheumatic aortic (valve) stenosis Status: Acute Assessment and Plan: Mild with moderate AI by Echo in March 2022. Doubt this is contributing to his symptoms. Continue to monitor. Subjective Date/time seen: 02/05/23 08:31 Interval history: 77yo male with a history of CHF, COPD, HTN, chronic back pain, CAD/NSTEMI here for altered mental status. Patient recently diagnosed with shingles and started on valacyclovir. No issues overnight. Able to feed himself without tremors. Leg shaking this morning better with Tylenol. THis is not uncommon at home. He feels much better. Exam Narrative: AF 98.5 149/71 82 20 96% ra Gen - NARD sitting up in bed feeding himself breakfast Chest - few basilar rhonchi o/w clear, nml RR CV - RRR S1/S2 Abd - Soft, NT/ND, Positive BS Ext - No pedal edema Neuro - Alert and appropriate Psych - Nml mood and affect Skin - dry, confluent purplish/red rash confined to left T5 dermatome consistent with shingles. Objective Data Vital Signs Vital Signs: Vital Signs - 24 hr 02/04/23 09:10 02/04/23 16:00 02/04/23 20:00 Temperature 97.5 F L Pulse Rate 60 75 Respiratory Rate 19 18 Blood Pressure 122/57 L Pulse Oximetry 92 96 Oxygen Delivery Room Air Room Air Fraction of Inspired Oxygen 02/04/23 20:57 02/04/23 2
[2023-02-05] MEDS: SODIUM CHLORIDE 0.9% IV 1,000 ML 100 ML IV CONT (09:38)
[2023-02-05] MEDS: MORPHINE SULFATE (*CRX) 15 MG TABCR 30 MG PO (09:42)
[2023-02-05] MEDS: FENOFIBRATE 160 MG TABLET PO (09:43)
[2023-02-05] MEDS: valACYclovir HCL 500 MG TABLET 1000 MG PO ×2 (09:43→19:39)
[2023-02-05] MEDS: ATORVASTATIN 40 MG TABLET 80 MG PO (09:43)
[2023-02-05] MEDS: PANTOPRAZOLE 40 MG TABLET PO (09:43)
[2023-02-05] MEDS: ASPIRIN 81 MG ENTERIC TABLET PO (09:43)
[2023-02-05] MEDS: LOSARTAN POTASSIUM 50 MG TABLET PO (09:44)
[2023-02-05] MEDS: amLODIPine BESYLATE 5 MG TABLET PO (09:44)
[2023-02-05] MEDS: buPROPion HCL SR (12 HR) 150 MG TAB PO ×2 (09:44→19:39)
[2023-02-05 12:31] LABS: Anion Gap 4 mmol/L (8-16); Blood Urea Nitrogen 31 mg/dL (9-20); Calcium 9.3 mg/dL (8.4-10.2); Carbon Dioxide 32 mmol/L (22-30); Chloride 97 mmol/L (98-107); Estimated CRCL calculation 46 ml/min; Estimated Glomerular Filt Rate 53; Glucose 99 mg/dL (65-110); Potassium 4.4 mmol/L (3.4-5.0); Sodium 133 mmol/L (137-145)
[2023-02-05 15:18] LABS: Glucose Point of Care 98 mg/dl (65-105)
[2023-02-05 17:30] VITALS: BP 119/66; PULSE 99; RESP 20; TEMP 37.1; O2SAT 96
[2023-02-05] MEDS: CALCIUM CARBONATE (TUMS) 500 MG (200 MG ELEMENTAL) PO (17:33)
[2023-02-05] MEDS: traZODone HCL 25 MG TABLET 75 MG PO (19:38)
[2023-02-05 19:57] VITALS: PULSE 80; RESP 19; O2SAT 94
[2023-02-05 23:03] VITALS: BP 132/58; PULSE 96; RESP 17; TEMP 36.9; O2SAT 95
[2023-02-06] MEDS: ACETAMINOPHEN 325 MG TABLET 650 MG PO (03:11)
[2023-02-06 05:15] LABS: Basophils Percent Auto 0.2 % (0.2-1.2); Eosinophils Percent Auto 0.1 % (0-4.4); Hematocrit 39.6 % (42.0-52.0); Hemoglobin 13.5 g/dL (14.0-18.0); Immature Granulocyte Absolute 0.08 K/mm3 (0.00-0.031); Immature Granulocyte Percent A 0.8 % (0-0.5); Lymphocytes Absolute Auto 1.75 K/mm3 (0.9-3.2); Lymphocytes Percent Auto 17.2 % (18.3-44.2); Mean Corpuscular HGB Conc 34.1 g/dl (32-36); Mean Corpuscular Hemoglobin 33.3 pg (26-34); Mean Corpuscular Volume 97.8 fl (80-100); Mean Platelet Volume 10.3 fl (7.4-10.4); Monocytes Absolute Auto 1.3 K/mm3 (0.1-0.6); Monocytes Percent Auto 13.2 % (2.6-8.5); Neutrophils Percent Auto 68.5 % (45.5-73.1); Platelet Count Result 167 k/mm3 (150-375); Red Blood Count 4.05 M/mm3 (4.6-6.20); Red Cell Distribution Width 12.9 % (11.5-14.5); White Blood Count 10.2 K/mm3 (4.5-10.0)
[2023-02-06 05:29] LABS: Potassium 4.4 mmol/L (3.4-5.0)
[2023-02-06 05:36] LABS: Albumin Level 3.5 g/dL (3.5-5.1); Anion Gap 5 mmol/L (8-16); Blood Urea Nitrogen 26 mg/dL (9-20); Calcium 8.5 mg/dL (8.4-10.2); Carbon Dioxide 28 mmol/L (22-30); Chloride 99 mmol/L (98-107); Estimated CRCL calculation 50 ml/min; Estimated Glomerular Filt Rate 59; Glucose 102 mg/dL (65-110); Phosphorus 2.5 mg/dL (2.5-4.5); Sodium 132 mmol/L (137-145)
[2023-02-06] MEDS: MORPHINE SULFATE (*CRX) 15 MG TABCR 30 MG PO (07:42)
[2023-02-06] MEDS: valACYclovir HCL 500 MG TABLET 1000 MG PO (07:43)
[2023-02-06] MEDS: LINACLOTIDE 145 MCG CAPSULE 290 MCG PO (07:43)
[2023-02-06] MEDS: ASPIRIN 81 MG ENTERIC TABLET PO (07:44)
[2023-02-06] MEDS: PANTOPRAZOLE 40 MG TABLET PO (07:44)
[2023-02-06] MEDS: ATORVASTATIN 40 MG TABLET 80 MG PO (07:44)
[2023-02-06] MEDS: amLODIPine BESYLATE 5 MG TABLET PO (07:44)
[2023-02-06] MEDS: buPROPion HCL SR (12 HR) 150 MG TAB PO (07:44)
[2023-02-06] MEDS: LOSARTAN POTASSIUM 50 MG TABLET PO (07:45)
[2023-02-06] MEDS: FENOFIBRATE 160 MG TABLET PO (07:45)
[2023-02-06 07:47] VITALS: BP 129/61; PULSE 82; RESP 16; TEMP 36.5; O2SAT 93
[2023-02-06 08:20] VITALS: PULSE 82; RESP 18
[2023-02-06] MEDS: FLUTICASONE/SALMETEROL 115-21 MCG INHALER 1 PUFF 2 PUFF INHALATION (08:20)
[2023-02-06 08:34] VITALS: PULSE 84; RESP 20
--- NOTE | 2023-02-06 11:24 | PM.DS ---
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 - Zoster encephalitis Status: Acute (5) Ischemic cardiomyopathy: Code(s): I25.5 - Ischemic cardiomyopathy Status: Acute (6) Primary osteoarthritis, left shoulder: Code(s): M19.012 - Primary osteoarthritis, left shoulder Status: Acute (7) Spinal stenosis, lumbar region without neurogenic claudication: Code(s): M48.061 - Spinal stenosis, lumbar region without neurogenic claudication Status: Acute (8) CHF (congestive heart failure), NYHA class I: Code(s): I50.9 - Heart failure, unspecified Status: Chronic (9) Aortic stenosis: Code(s): I35.0 - Nonrheumatic aortic (valve) stenosis Status: Acute DS: Summary Hospital Course Reason for hospitalization: 77yo male with a history of CHF, COPD, HTN, chronic back pain, CAD/NSTEMI here for altered mental status. Patient recently diagnosed with shingles and started on valacyclovir. Please see H&P for details. Hospital Course: Patient diagnosed with shingles on the morning of 02/01. He was started on valacyclovir and was also given Dilaudid that morning.? Per the family the patient was more lethargic at home and had fallen 3 times so returned to ED later on the same day and admitted. He was confused. No LP performed. He was started on IV acyclovir. Other providers did not feel this was herpes encephalitis and more likely related to medications. His mental status improved but still felt weak. He was resumed on his MS Contin BID as listed on the bottle but it was discovered that he only takes the MS Contin once daily. He had clinical improvement after decreasing MS Contin to home dose. Cr climbed to 1.4. No recent contrast exposure. On Sulidac which was held. His lasix was already on hold. Repeat UA noted but this did not prompt culture. Urine sodium low so he was given judicious amounts of IV fluids. Cr improved to 1.2. He had herpes zoster present on admission. The lesions are dry. He was changed fro acyclovir to valacyclovir. He has a hx of iCMP. EF 68% in March 2022. We continued a majority of his home meds. Mental status returned to baseline. He worked with PT/OT. It was determined that he was to weak to return home so arrangements made and was able to be discharged to SNF on 02/06/23. Discharge instructions discussed with patient and family (with patient permission). Status at Discharge Cognitive/behavioral status at discharge: Stable Time Spent with Patient Time attestation: Total time spent providing and/or coordinating discharge services: 35 minutes Time spent: Greater than 30 minutes Exam Narrative: AF 97.7 129/61 82 16 93% ra Gen - NARD sitting up in bed Chest - few scattered rhonchi. Nml RR CV - RRR S1/S2 Abd - Soft, NT/ND, Positive BS Ext - No pedal edema Neuro - Alert and appropriate Psych - Nml mood and affect Skin - dry, confluent purplish/red rash confined to left T5 dermatome consistent with shingles with some clearing posteriorly. DS: Data Data Completed and Pending Labs on day of discharge: Labs from last 24 hours 02/06/23 02/06/23 02/05/23 05:01 05:01 15:16 WBC 10.2 H RBC 4.05 L Hgb 13.5 L Hct 39.6 L MCV 97.8 MCH 33.3 MCHC 34.1 RDW 12.9 Plt Count 167 MPV 10.3 Immature Gran % (Auto) 0.8 H Neut % (Auto) 68.5 Lymph % (Auto) 17.2 L [place] % (Auto) 13.2 H Eos % (Auto) 0.1 Baso % (Auto) 0.2 Lymph # (Auto) 1.75 [place] # (
[2023-02-06 12:25] LABS: SARS-CoV-2 RNA PCR Negative
== END 2023-02-06 13:30 | DRG 74 ==
LOC: ANHED 21:28 → ANHICU 22:39
PROVIDERS: Chiropractor; Admitting Provider Internal Medicine; Emergency Provider Emergency Medicine; PCP Family Medicine Adolescent Medicine; Visit Provider Internal Medicine
DX: B02.0 Zoster encephalitis (principal); N17.9 Acute kidney failure, unspecified; G89.29 Other chronic pain; I11.0 Hypertensive heart disease with heart failure; I25.2 Old myocardial infarction; I50.9 Heart failure, unspecified; J43.9 Emphysema, unspecified; I35.0 Nonrheumatic aortic (valve) stenosis; I25.5 Ischemic cardiomyopathy; K21.9 Gastro-esophageal reflux disease without esophagitis; M19.012 Primary osteoarthritis, left shoulder; M54.9 Dorsalgia, unspecified; M48.061 Spinal stenosis, lumbar region without neurogenic claudication; R29.6 Repeated falls; Z86.12 Personal history of poliomyelitis; Z95.5 Presence of coronary angioplasty implant and graft; Z20.822 Contact with and (suspected) exposure to COVID-19; Z90.49 Acquired absence of other specified parts of digestive tract; Z79.82 Long term (current) use of aspirin; Z87.891 Personal history of nicotine dependence
CPT/HCPCS: 36415; 70450; 70553; 71045; 72125; 80048; 80053; 80069; 81001; 82570; 82607; 82746; 82948; 83735; 84300; 84443; 84484; 85025; 85610; 85730; 93005; 94640; 96361; 96365; 96366; 96372; 96374; 96375; 96376; 97110; 97161; 97165; 99284; 99285; A9270; A9577; G0378; J0133; J0360; J1170; J2310; J2405; J2550; J7030; J7060; J7512; U0003; U0005

== ENCOUNTER 2023-06-13 07:55 | Observation (INO) | payer MEDICARE, SELFPAY ==
[2023-06-13] VITALS (27 sets, daily range): BP systolic 106–162; BP diastolic 54–91; PULSE 62–81; RESP 10–25; TEMP 36.2–36.6; O2SAT 85–99
--- NOTE | ~2023-06-13 | XR_ITS ---
EXAMINATION: XR chest 1V 06/13/2023 08:56 INDICATION: Weakness. PROCEDURE: AP view of the chest COMPARISON: Comparison to multiple prior studies sequentially, with oldest reviewed study dated 09/24. FINDINGS: The lungs are clear. The lungs are hyperinflated which is consistent with, but not diagnost ic of chronic obstructive pulmonary disease. The cardiomediastinal silhouette is within normal limits . There are no pleural effusions. There is no pneumothorax suspected. Chronic left basilar atelect asis/scarring. IMPRESSION: 1: NO ACUTE CARDIOPULMONARY DISEASE. Reviewed, dictated and finalized at location A.
--- NOTE | ~2023-06-13 | US_ITS ---
EXAMINATION: US renal BI DATE: 06/13/2023 15:25 INDICATION: Acute kidney injury TECHNIQUE: Multiple grayscale and Doppler ultrasound images of the kidneys were obtained. COMPARISON: CT abdomen pelvis 02/09/2017 FINDINGS: The right kidney measures 10.6 x 5.4 x 5.0 cm. The left kidney measures 10.5 x 4.8 x 4.1 cm. The kidn eys demonstrate normal parenchymal echogenicity. 1.0 cm simple left inferior pole cyst. There is no h ydronephrosis. The bladder is normal. IMPRESSION: Unremarkable renal sonogram findings. Reviewed, dictated and finalized at location K.
--- NOTE | ~2023-06-13 | CT_ITS ---
EXAMINATION: CT BRAIN W/O DATE: 06/13/2023 08:50 INDICATION: Altered mental status. Weakness. TECHNIQUE: Computed tomography (CT) of the head was performed without intravenous contrast. The dose- length product was 605.33 mGy-cm. COMPARISON: No prior studies for comparison. FINDINGS: Normal brain parenchymal volume for age. Normal stern-white differentiation. No acute intrac ranial hemorrhage, infarction, mass or mass effect. There are scattered mild periventricular and subc ortical white matter changes, most likely related to small vessel ischemic disease (microangiopathy). No ventriculomegaly or midline shift. Midline sagittal images demonstrate a normal corpus callosum, c raniovertebral junction and sella turcica. Basilar cisterns are patent. Paranasal sinuses and mastoids are pneumatized. There is a small left mastoid effusion. No depressed skull fractures. IMPRESSION: 1. No acute intracranial abnormality. Reviewed, dictated and finalized at location A.
--- NOTE | 2023-06-13 08:12 | ECG_ITS ---
Measurements Intervals [place] Rate: 65 P: 32 [place]: 197 QRS: -10 QRSD: 121 T: 46 QT: 424 QTc: 443 Interpretive Statements SINUS RHYTHM BORDERLINE AV CONDUCTION DELAY INCOMPLETE RIGHT BUNDLE BRANCH BLOCK BORDERLINE T WAVE ABNORMALITY- ANTERIOR LEADS BASELINE ARTIFACT- I II, III, AVF, V1-V2 BORDERLINE ECG COMPARED TO ECG 02/01/2023 18:04:22 NO SIGNIFICANT CHANGES Electronically Signed On 06-13-2023 21:46:07 CDT by Tim Mary D.O.
--- NOTE | 2023-06-13 08:20 | PC.NURSE ---
Family states that pt has also been dealing with nausea and diarrhea. Family also states that while using the bathroom a few days prior due to the weakness. Pt states that it was a 'half' fall and was able to catch himself. States he did hit his left elbow on the wall. Denies any pain.
--- NOTE | 2023-06-13 08:24 | PC.NURSE ---
Family states that pt was actually doubling up on his dose of clonazepam and had stopped. Restarted a few days ago at the regular dose.
[2023-06-13 08:25] LABS: Basophils Percent Auto 0.3 % (0.2-1.2); Eosinophils Absolute Auto 0.1 K/mm3 (0-0.3); Eosinophils Percent Auto 1.3 % (0-4.4); Hematocrit 39.2 % (42.0-52.0); Hemoglobin 12.5 g/dL (14.0-18.0); Immature Granulocyte Absolute 0.05 K/mm3 (0.00-0.031); Immature Granulocyte Percent A 0.7 % (0-0.5); Lymphocytes Absolute Auto 1.23 K/mm3 (0.9-3.2); Lymphocytes Percent Auto 17.3 % (18.3-44.2); Mean Corpuscular HGB Conc 31.9 g/dl (32-36); Mean Corpuscular Hemoglobin 32.6 pg (26-34); Mean Corpuscular Volume 102.1 fl (80-100); Monocytes Absolute Auto 0.7 K/mm3 (0.1-0.6); Monocytes Percent Auto 10.1 % (2.6-8.5); Neutrophils Percent Auto 70.3 % (45.5-73.1); Platelet Count Result 187 k/mm3 (150-375); Red Blood Count 3.84 M/mm3 (4.6-6.20); Red Cell Distribution Width 13.5 % (11.5-14.5); White Blood Count 7.1 K/mm3 (4.5-10.0)
[2023-06-13 08:34] LABS: Alanine Aminotransferase 45 U/L (6-50); Albumin Level 3.9 g/dL (3.5-5.1); Alkaline Phosphatase 181 U/L (38-126); Anion Gap 11 mmol/L (8-16); Aspartate Amino Transferase 44 U/L (17-59); Bilirubin,Total 0.9 mg/dL (0.2-1.3); Blood Urea Nitrogen 81 mg/dL (9-20); Calcium 8.7 mg/dL (8.4-10.2); Carbon Dioxide 22 mmol/L (22-30); Chloride 105 mmol/L (98-107); Estimated CRCL calculation 27 ml/min; Estimated Glomerular Filt Rate 26; Glucose 123 mg/dL (65-110); Potassium 4.2 mmol/L (3.4-5.0); Sodium 138 mmol/L (137-145)
--- NOTE | 2023-06-13 08:34 | ED.GENADULT ---
HPI - General Adult General Chief complaint: Weakness Stated complaint: gen. weak Time Seen by Provider: 06/13/23 08:02 History of Present Illness HPI narrative: 78-year-old male presented to the emergency department for evaluation of increased generalized weakness. Patient had been started on clonazepam and was found to be taking double the dose. Family did stop the clonazepam due to the patient having increased lethargy. On Thursday patient began developing some diarrhea. Since Thursday patient has had decreased p.o. intake, prolonged hours and the and has continued to have increased lethargy. Related Data Home Medications Medication Instructions Recorded Confirmed aspirin 81 mg tablet,delayed 81 mg PO DAILY 12/02/19 06/03/23 release (Aspir-) losartan 50 mg tablet 50 mg PO DAILY 12/02/19 06/13/23 linaclotide 290 mcg capsule 290 mcg PO DAILY 02/01/23 06/13/23 (Linzess) acetaminophen 500 mg tablet 500 mg PO Q6H PRN Pain 03/18/23 06/13/23 (Tylenol Extra Strength) diphenhydramine HCl 25 mg tablet 25 mg PO QHS PRN 03/18/23 06/03/23 (Allergy (diphenhydramine)) esomeprazole magnesium 20 mg 20 mg PO BID 03/18/23 06/03/23 capsule,delayed release finasteride 5 mg tablet (Proscar) 5 mg PO DAILY 03/18/23 06/13/23 guaifenesin 1,200 mg tablet, 1,200 mg PO 1XD 03/18/23 06/13/23 extended release 12 hr (Mucinex) multivitamin 1 tablet PO DAILY 03/18/23 06/13/23 nitroglycerin 0.3 mg sublingual 0.3 mg sublingual Q5M PRN 03/18/23 06/03/23 tablet sertraline 50 mg tablet 50 mg PO DAILY 03/18/23 06/03/23 baclofen 10 mg tablet 10 mg PO DAILY 05/13/23 06/03/23 Allergies Allergy/AdvReac Type Severity Reaction Status Date / Time No Known Allergies Allergy Verified 06/03/23 11:35 Review of Systems Review of Systems: All systems reviewed & are unremarkable except as noted in HPI and below PMFSH Past Medical History Medical History (Updated 06/13/23 @ 15:09 by Elenita Reinoso NP) CHF (congestive heart failure), NYHA class I EF 45-50% 10/13 COPD (chronic obstructive pulmonary disease) GERD (gastroesophageal reflux disease) Herpes zoster Herpes zoster encephalitis History of colon polyps History of poliomyelitis HTN (hypertension) Hx SBO (~05/2007) Hyperlipidemia Normal colonoscopy 05/07 NSTEMI (non-ST elevated myocardial infarction) (~08/2019) Polio (~195) Surgical History Surgical History (Updated 06/13/23 @ 14:35 by Elenita Reinoso NP) H/O colonoscopy with polypectomy H/O rotator cuff surgery Bilateral History of bowel resection History of colon resection History of coronary artery stent placement X2 History of mandibular surgery 1986 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 Bone removed from right hip for reconstructive surgery S/P tonsillectomy and adenoidectomy Family History Family History Mother Diabetes mellitus Acute myocardial infarction Father COPD (chronic obstructive pulmonary disease) Colon cancer Sibling Colon cancer Lung cancer Acute myocardial infarction COPD (chronic obstructive pulmonary disease) Sibling COPD (chronic obstructive pulmonary disease) Sibling Congestive heart failure Social History Social History (Updated 06/13/23 @ 14:35 by Elenita Reinoso NP) Social History: The patient lives with his son and [id number]. Patient is a . The patient quit smoking in 2018. He also gave up alcohol many years ago. No marijuana or illicit drugs. The patient does not have a durable power family law attorney for healthcare. The patient desires to be a full code. 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 The patient has 5 biological children and raise 2 other children. Code status full code Smoking packs per day: 2 Smoking cigarettes per day: 40.0 Years smoked: 60 Smoking pack-years: 120.00 Smoking status: Former smoker Tobacco type: cigarettes [place]
[2023-06-13 08:35] LABS: Lactic Acid Reflex 0.7 mmol/L (0.7-2.0)
[2023-06-13 08:39] LABS: INR 1.1; Prothrombin Time 14.5 Seconds (11.1-14.7)
[2023-06-13 08:40] LABS: Partial Thromboplastin Time 33.1 SECONDS (22.3-36.8)
--- NOTE | 2023-06-13 08:42 | PC.NURSE ---
Daughter who pt stays with states that she does not feel comfortable with pt returning home with her. States she feels that pt does not get adequate care due to her being at work a majority of the day.
[2023-06-13] MEDS: SODIUM CHLORIDE 0.9% IV 1,000 ML 999 ML IV CONT (09:00)
[2023-06-13 09:20] LABS: Appearance Urine Clear (Clear); Bilirubin Urine Negative (Negative); Blood Urine Negative (Negative); Color Urine Yellow (Yellow); Glucose Urine UA Negative (Negative); Ketones Urine Negative (Negative); Leukocyte Esterase Ur Negative LEU/UL (Negative); Nitrate Urine Negative (Negative); Protein Urine Negative (Negative); Specific Grav Ur 1.014 (1.001-1.035)
[2023-06-13 09:41] LABS: Add Urine Microscopic? NO
--- NOTE | 2023-06-13 11:33 | ADMGEN ---
This patient, Russell Morse, was admitted to [facility] Surg Room 316-01. Patient/family oriented to hospital policies and general routines including ID bracelet, bed and alarms, visiting hours, pain management, procedures, bathroom and other care routines, personal items, smoking policy, room service/diet, and visiting hours. Information on how to activate the Rapid Response Team has been discussed. Patient/Family are encouraged to report perceived risks to care and to ask questions if they do not understand what they are told or what they should do.
--- NOTE | 2023-06-13 12:32 | PM.IMHP ---
H&P: HPI History of Present Illness Date/Time: 06/13/23 12:32 Chief Complaint: Weakness Narrative: This is a 78-year-old male patient who resides with family. The patient came to the emergency room with complaints of increased generalized weakness. The patient had been falling several times. The patient had recently been started on clonazepam and has been doubling his dose. The family then stopped his clonazepam. Thursday the patient began developing some diarrhea. He then had decreased p.o. intake. He does not recall having any chronic kidney problems. His H&H is 12.5 and 39.2. MCV is 102.1. BUN is 81 creatinine 2.4. GFR is 26. Head CT no acute intracranial abnormality. Chest x-ray no acute cardiopulmonary disease the patient is being admitted to observation status on the date of service of 06/13/2023.. Review of Systems Review of Systems: All systems reviewed & are unremarkable except as noted in HPI and below Constitutional: Constitutional: Reports as per HPI and Reports no additional constitutional complaints Eyes: Eyes: Reports as per HPI and Reports no additional eye complaints ENT: Reports system reviewed and no additional complaints, except as documented and Reports Normal hearing present Cardiovascular: Cardiovascular: Reports no additional cardiovascular complaints Respiratory: Respiratory: Reports no additional respiratory complaints and Reports no additional respiratory complaints Gastrointestinal: Gastrointestinal: Reports as per HPI and Reports no additional gastrointestinal complaints Musculoskeletal: Musculoskeletal: Reports no additional musculoskeletal complaints Integumentary/Breasts: Skin/Breast: Reports system reviewed and no additional complaints, except as docu and Reports as per HPI Neurologic: Reports system reviewed and no additional complaints, except as documented, Reports as per HPI and Reports Normal hearing present Psychiatric: Psychiatric: Reports no additional psychiatric complaints and Reports as per HPI Endocrine: Endocrine: Reports no additional endocrine complaints Hematologic/Lymphatic: Hematologic/Lymphatic: Reports no additional hematologic/lymphatic complaints Allergic/Immunologic: Allergic/Immunologic: Reports no additional allergic/immunologic complaints [facility] Past Medical History Medical History (Updated 06/13/23 @ 15:09 by Elenita Reinoso NP) CHF (congestive heart failure), NYHA class I EF 45-50% 10/13 COPD (chronic obstructive pulmonary disease) GERD (gastroesophageal reflux disease) Herpes zoster Herpes zoster encephalitis History of colon polyps History of poliomyelitis HTN (hypertension) Hx SBO (~05/2007) Hyperlipidemia Normal colonoscopy 05/07 NSTEMI (non-ST elevated myocardial infarction) (~08/2019) Polio (~1952) Surgical History Surgical History (Updated 06/13/23 @ 14:35 by Elenita Reinoso NP) H/O colonoscopy with polypectomy H/O rotator cuff surgery Bilateral History of bowel resection History of colon resection History of coronary artery stent placement X2 History of mandibular surgery 1987 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 Bone removed from right hip for reconstructive surgery S/P tonsillectomy and adenoidectomy Family History Family History Mother Diabetes mellitus Acute myocardial infarction Father COPD (chronic obstructive pulmonary disease) Colon cancer Sibling Colon cancer Lung cancer Acute myocardial infarction COPD (chronic obstructive pulmonary disease) Sibling COPD (chronic obstructive pulmonary disease) Sibling Congestive heart failure Social History Social History (Updated 06/13/23 @ 14:35 by Elenita Reinoso NP) Social History: The patient lives with his son and [id number]. Patient is a . The patient quit smoking in 2018. He also gave up alcohol many years ago. No marijuana or illicit drugs. The patient
[2023-06-13] MEDS: SODIUM CHLORIDE 0.9% IV 1,000 ML 75 ML IV CONT (15:49)
[2023-06-13] MEDS: guaiFENesin 12 HR 600 MG TABCR PO ×2 (15:50→20:55)
[2023-06-13] MEDS: buPROPion HCL SR (12 HR) 150 MG TAB PO (20:55)
[2023-06-13] MEDS: ACETAMINOPHEN 500 MG TABLET PO (20:55)
[2023-06-13] MEDS: traZODone HCL 50 MG TABLET 100 MG PO (20:57)
[2023-06-13] MEDS: ONDANSETRON INJ 4 MG/2 ML VIAL IV PUSH (22:10)
[2023-06-13 23:26] LABS: Anion Gap 11 mmol/L (8-16); Blood Urea Nitrogen 60 mg/dL (9-20); Calcium 8.7 mg/dL (8.4-10.2); Carbon Dioxide 20 mmol/L (22-30); Chloride 108 mmol/L (98-107); Estimated CRCL calculation 42 ml/min; Estimated Glomerular Filt Rate 45; Glucose 126 mg/dL (65-110); Potassium 4.5 mmol/L (3.4-5.0); Sodium 139 mmol/L (137-145)
[2023-06-14] MEDS: SODIUM CHLORIDE 0.9% IV 1,000 ML 75 ML IV CONT (05:14)
[2023-06-14 06:00] VITALS: BP 133/55; PULSE 55; RESP 18; TEMP 36.2; O2SAT 95
[2023-06-14 07:19] LABS: Basophils Percent Auto 0.2 % (0.2-1.2); Eosinophils Absolute Auto 0.1 K/mm3 (0-0.3); Eosinophils Percent Auto 1.2 % (0-4.4); Hematocrit 34.8 % (42.0-52.0); Hemoglobin 11.3 g/dL (14.0-18.0); Immature Granulocyte Absolute 0.02 K/mm3 (0.00-0.031); Immature Granulocyte Percent A 0.4 % (0-0.5); Lymphocytes Absolute Auto 1.49 K/mm3 (0.9-3.2); Mean Corpuscular HGB Conc 32.5 g/dl (32-36); Mean Corpuscular Hemoglobin 32.8 pg (26-34); Mean Corpuscular Volume 101.2 fl (80-100); Mean Platelet Volume 11.3 fl (7.4-10.4); Monocytes Absolute Auto 0.7 K/mm3 (0.1-0.6); Monocytes Percent Auto 13.6 % (2.6-8.5); Neutrophils Absolute Auto 2.9 K/mm3 (1.3-6.7); Neutrophils Percent Auto 55.6 % (45.5-73.1); Platelet Count Result 174 k/mm3 (150-375); Red Blood Count 3.44 M/mm3 (4.6-6.20); Red Cell Distribution Width 13.3 % (11.5-14.5); White Blood Count 5.1 K/mm3 (4.5-10.0)
[2023-06-14 07:31] LABS: Alanine Aminotransferase 40 U/L (6-50); Albumin Level 3.2 g/dL (3.5-5.1); Alkaline Phosphatase 146 U/L (38-126); Anion Gap 7 mmol/L (8-16); Aspartate Amino Transferase 38 U/L (17-59); Bilirubin,Total 0.6 mg/dL (0.2-1.3); Blood Urea Nitrogen 44 mg/dL (9-20); Calcium 8.5 mg/dL (8.4-10.2); Carbon Dioxide 23 mmol/L (22-30); Chloride 109 mmol/L (98-107); Estimated CRCL calculation 48 ml/min; Estimated Glomerular Filt Rate 53; Glucose 105 mg/dL (65-110); Lipase 199 U/L (23-300); Magnesium 2.1 mg/dL (1.6-2.3); Potassium 4.3 mmol/L (3.4-5.0); Sodium 139 mmol/L (137-145)
[2023-06-14 08:00] VITALS: O2SAT 95
[2023-06-14 08:03] LABS: Thyroid Stimulating Hormone Reflex 0.165 uIU/mL (0.465-4.68)
[2023-06-14] MEDS: ASPIRIN 81 MG ENTERIC TABLET PO (08:08)
[2023-06-14] MEDS: ATORVASTATIN 40 MG TABLET 80 MG PO (08:08)
[2023-06-14] MEDS: BACLOFEN 10 MG TABLET PO (08:08)
[2023-06-14] MEDS: buPROPion HCL SR (12 HR) 150 MG TAB PO ×2 (08:09→20:03)
[2023-06-14] MEDS: FENOFIBRATE 160 MG TABLET PO (08:09)
[2023-06-14] MEDS: guaiFENesin 12 HR 600 MG TABCR PO ×2 (08:09→20:03)
[2023-06-14] MEDS: LINACLOTIDE 145 MCG CAPSULE 290 MCG PO (08:09)
[2023-06-14] MEDS: FINASTERIDE 5 MG TABLET PO (08:09)
[2023-06-14] MEDS: MULTIVITAMINS THERAPEUTIC TAB (*BKC) 1 TABLET PO (08:09)
[2023-06-14] MEDS: MORPHINE SULFATE (*CRX) 30 MG TABCR PO (08:09)
[2023-06-14] MEDS: PANTOPRAZOLE 40 MG TABLET PO (08:10)
[2023-06-14] MEDS: SERTRALINE HCL 50 MG TABLET PO (08:10)
[2023-06-14] MEDS: TAMSULOSIN HCL 0.4 MG CAPSULE PO (08:10)
[2023-06-14] MEDS: FLUTICASONE/UMECLIDIN/VILANTER 100-62.5-25 MCG ELLIPTA 1 PUFF INHALATION (09:00)
--- NOTE | 2023-06-14 12:36 | PM.IMPN ---
Progress Note: A&P Assessment and Plan (1) SANDI (acute kidney injury): Code(s): N17.9 - Acute kidney failure, unspecified Status: Acute Assessment and Plan: Patient admitted with SANDI he improved with IV fluids suspected prerenal due to dehydration due to altered mental status due to excess medication. (2) Accidental clonazepam overdose: Code(s): T42.4X1A - Poisoning by benzodiazepines, accidental (unintentional), initial encounter Status: Acute Assessment and Plan: Patient was started on clonazepam for muscle tremors and jerking upper extremities. He has been taking this daily and then took additional as he thought this was just as needed I did not realize it was in his daily medication. He has been sleeping extra at home forgetful and falling. He has not been eating and drinking appropriately for at least a week. (3) CHF (congestive heart failure), NYHA class I: Code(s): I50.9 - Heart failure, unspecified Status: Chronic Assessment and Plan: No pulmonary edema, no shortness of breath, no peripheral swelling. Recent echocardiogram from last month shows grade 1 diastolic dysfunction and mild aortic stenosis. (4) COPD (chronic obstructive pulmonary disease): Qualifiers: COPD type: unspecified COPD Qualified Code(s): J44.9 - Chronic obstructive pulmonary disease, unspecified Code(s): J44.9 - Chronic obstructive pulmonary disease, unspecified Status: Chronic Assessment and Plan: Stable, no shortness of breath at this time. (5) HTN (hypertension): Code(s): I10 - Essential (primary) hypertension Status: Chronic Assessment and Plan: Stable, continue to trend. Consider restarting losartan tomorrow (6) Major depressive disorder, recurrent, mild: Code(s): F33.0 - Major depressive disorder, recurrent, mild Status: Acute Plan Stop IV fluids. Consider restarting losartan tomorrow. Hold furosemide and suldinac for now. Patient needs inpatient rehab upon discharge. Spoke to family and they want to look at Swing Bed at [facility]. Case management notified. Time Spent With Patient Time with patient: 25 - 35 minutes Subjective Date/time seen: 06/14/23 12:36 Interval history: Patient is seen seated upright in the chair at bedside after finishing lunch. Patient speaking with his 2 sons were present at time of my examination. Patient reports that he has been feeling generally weak and having few falls recently and there was confusion over whether he was taking too much clonazepam. It is reported that the clonazepam was added to his medications due to arm tremors and muscle jerking patient thought that he was only taking it as needed but there was information stating that he had been taking them daily with his other medications for a while. It seems that he was confused and less active. He was eating and drinking less is well because he was tired and sleeping all the time. Son's report that patient had a similar issue with too much morphine in the past and they are looking at assisted living options to help with his medication management. Patient reports that therapy worked with him and they are recommending 2 weeks of intensive therapy for strengthening. Patient reports that he is feeling well at this time denies any nausea vomiting constipation diarrhea chest pain shortness a breath or any other concerning symptoms. He notes that the IV fluids are causing him to need to urinate more often. Review of Systems Review of Systems: All systems reviewed & are unremarkable except as noted in HPI and below Exam Const: General: cooperative, healthy appearing, comfortable, no acute distress, well developed, awake, Physically active, average body habitus and well nourished Nutritional Appearance: average body habitus and well nourished Orientation/consciousness: oriented to person, oriented to place, oriented to t
[2023-06-14 13:45] LABS: Albumin Level 3.8 g/dL (3.5-5.1); Anion Gap 12 mmol/L (8-16); Blood Urea Nitrogen 38 mg/dL (9-20); Calcium 8.8 mg/dL (8.4-10.2); Carbon Dioxide 17 mmol/L (22-30); Chloride 109 mmol/L (98-107); Estimated CRCL calculation 52 ml/min; Estimated Glomerular Filt Rate 58; Glucose 128 mg/dL (65-110); Phosphorus 2.8 mg/dL (2.5-4.5); Potassium 4.1 mmol/L (3.4-5.0); Sodium 138 mmol/L (137-145)
[2023-06-14 14:00] VITALS: BP 115/52; PULSE 79; RESP 16; TEMP 36.8; O2SAT 91
[2023-06-14] MEDS: ENOXAPARIN 40 MG/0.4 ML SYRINGE SUB-Q (14:06)
[2023-06-14 15:29] LABS: Free T4 Free Thyroxine Reflex 0.89 ng/dL (0.78-2.19)
[2023-06-14 16:42] LABS: Total Triiodothyronine (T3) 0.85 NG/ML (0.97-1.69)
[2023-06-14 20:00] VITALS: O2SAT 92
[2023-06-14] MEDS: MICONAZOLE NITRATE 2% CREAM 30 GM TUBE 1 APPLIC TOPICAL (20:03)
[2023-06-14] MEDS: traZODone HCL 50 MG TABLET 100 MG PO (20:03)
[2023-06-14] MEDS: polyethylene glycoL 3350 17 GM POWD.PACK PO (20:23)
[2023-06-14 21:48] VITALS: BP 143/64; PULSE 73; RESP 16; TEMP 35.7; O2SAT 92
[2023-06-15 04:59] VITALS: BP 142/59; PULSE 69; RESP 18; TEMP 35.9; O2SAT 91
[2023-06-15 06:37] LABS: Hemoglobin 11.3 g/dL (14.0-18.0); Mean Corpuscular HGB Conc 32.3 g/dl (32-36); Mean Corpuscular Hemoglobin 32.4 pg (26-34); Mean Corpuscular Volume 100.3 fl (80-100); Mean Platelet Volume 11.1 fl (7.4-10.4); Platelet Count Result 183 k/mm3 (150-375); Red Blood Count 3.49 M/mm3 (4.6-6.20); Red Cell Distribution Width 13.4 % (11.5-14.5); White Blood Count 6.7 K/mm3 (4.5-10.0)
[2023-06-15 06:51] LABS: Anion Gap 6 mmol/L (8-16); Blood Urea Nitrogen 27 mg/dL (9-20); Calcium 8.7 mg/dL (8.4-10.2); Carbon Dioxide 26 mmol/L (22-30); Chloride 107 mmol/L (98-107); Estimated CRCL calculation 52 ml/min; Estimated Glomerular Filt Rate 58; Glucose 108 mg/dL (65-110); Potassium 4.6 mmol/L (3.4-5.0); Sodium 139 mmol/L (137-145)
--- NOTE | 2023-06-15 07:29 | PCCARD ---
ECHOCARDIOGRAM ORDERED 06/13/23 CANCELLED BY MODESTO DENNIS
[2023-06-15] MEDS: FLUTICASONE/UMECLIDIN/VILANTER 100-62.5-25 MCG ELLIPTA 1 PUFF INHALATION (08:21)
[2023-06-15 08:22] VITALS: PULSE 92; RESP 20; O2SAT 95
[2023-06-15] MEDS: LINACLOTIDE 145 MCG CAPSULE 290 MCG PO (08:37)
[2023-06-15] MEDS: MORPHINE SULFATE (*CRX) 30 MG TABCR PO (08:37)
[2023-06-15] MEDS: FENOFIBRATE 160 MG TABLET PO (08:38)
[2023-06-15] MEDS: PANTOPRAZOLE 40 MG TABLET PO (08:38)
[2023-06-15] MEDS: MULTIVITAMINS THERAPEUTIC TAB (*BKC) 1 TABLET PO (08:38)
[2023-06-15] MEDS: buPROPion HCL SR (12 HR) 150 MG TAB PO ×2 (08:38→20:39)
[2023-06-15] MEDS: ASPIRIN 81 MG ENTERIC TABLET PO (08:38)
[2023-06-15] MEDS: FINASTERIDE 5 MG TABLET PO (08:39)
[2023-06-15] MEDS: TAMSULOSIN HCL 0.4 MG CAPSULE PO (08:39)
[2023-06-15] MEDS: guaiFENesin 12 HR 600 MG TABCR PO ×2 (08:39→20:39)
[2023-06-15] MEDS: ENOXAPARIN 40 MG/0.4 ML SYRINGE SUB-Q (08:39)
[2023-06-15] MEDS: SERTRALINE HCL 50 MG TABLET PO (08:39)
[2023-06-15] MEDS: BACLOFEN 10 MG TABLET PO (10:56)
[2023-06-15] MEDS: ATORVASTATIN 40 MG TABLET 80 MG PO (10:57)
[2023-06-15] MEDS: SIMETHICONE 125 MG CHEW TAB PO ×3 (10:57→20:39)
[2023-06-15] MEDS: BENZONATATE 100 MG CAPSULE 200 MG PO (10:57)
[2023-06-15] MEDS: CHOLECALCIFEROL 1,000 UNITS TABLET 5000 UNITS PO (10:57)
[2023-06-15] MEDS: LORATADINE 10 MG TABLET PO (10:58)
[2023-06-15] MEDS: LOSARTAN POTASSIUM 50 MG TABLET PO (10:58)
--- NOTE | 2023-06-15 12:49 | PM.IMPN ---
Progress Note: A&P Assessment and Plan (1) SANDI (acute kidney injury): Code(s): N17.9 - Acute kidney failure, unspecified Status: Acute Assessment and Plan: Resolved with IV fluids and normal diet. (2) Accidental clonazepam overdose: Code(s): T42.4X1A - Poisoning by benzodiazepines, accidental (unintentional), initial encounter Status: Acute Assessment and Plan: Patient was started on clonazepam for muscle tremors and jerking upper extremities. He has been taking this daily and then took additional as he thought this was just as needed I did not realize it was in his daily medication. He has been sleeping extra at home forgetful and falling. He has not been eating and drinking appropriately for at least a week. Today patient states he does not plan to have her restart taking clonazepam. (3) CHF (congestive heart failure), NYHA class I: Code(s): I50.9 - Heart failure, unspecified Status: Chronic Assessment and Plan: No pulmonary edema, no shortness of breath, no peripheral swelling. Recent echocardiogram from last month shows grade 1 diastolic dysfunction and mild aortic stenosis. No shortness of breath or swelling noted. No rales or rhonchi. (4) COPD (chronic obstructive pulmonary disease): Qualifiers: COPD type: unspecified COPD Qualified Code(s): J44.9 - Chronic obstructive pulmonary disease, unspecified Code(s): J44.9 - Chronic obstructive pulmonary disease, unspecified Status: Chronic Assessment and Plan: Stable, no shortness of breath at this time. No wheezing or shortness of breath. (5) HTN (hypertension): Code(s): I10 - Essential (primary) hypertension Status: Chronic Assessment and Plan: Stable, continue to trend. Consider restarting losartan tomorrow Losartan restarted (6) Major depressive disorder, recurrent, mild: Code(s): F33.0 - Major depressive disorder, recurrent, mild Status: Acute Plan Hold furosemide insult the neck for now. Patient needs inpatient rehabilitation for strengthening. Family considering [facility] or swing bed at [place] Time Spent With Patient Time with patient: 25 - 35 minutes Subjective Date/time seen: 06/15/23 12:49 Interval history: 06/14 Rounding: Patient is seen seated upright in the chair at bedside after finishing lunch. Patient speaking with his 2 sons were present at time of my examination. Patient reports that he has been feeling generally weak and having few falls recently and there was confusion over whether he was taking too much clonazepam. It is reported that the clonazepam was added to his medications due to arm tremors and muscle jerking patient thought that he was only taking it as needed but there was information stating that he had been taking them daily with his other medications for a while. It seems that he was confused and less active. He was eating and drinking less is well because he was tired and sleeping all the time. Son's report that patient had a similar issue with too much morphine in the past and they are looking at assisted living options to help with his medication management. Patient reports that therapy worked with him and they are recommending 2 weeks of intensive therapy for strengthening. Patient reports that he is feeling well at this time denies any nausea vomiting constipation diarrhea chest pain shortness a breath or any other concerning symptoms. He notes that the IV fluids are causing him to need to urinate more often. 06/15 Rounding: Patient is seen while seated in the bed sitting upright. Patient states that he finished breakfast okay. He had complained of some gas and bloating for which we have prescribed simethicone. Patient is looking forward to rehabilitation for increased strength with the plan to return back to his daughter's house. He plans to discontinue clonazepam use completely. Review of Systems
[2023-06-15 14:00] VITALS: BP 135/82; PULSE 78; RESP 16; TEMP 36.2; O2SAT 95
--- NOTE | 2023-06-15 15:02 | PCCCNOTE ---
On 06/15/23, the student, [Anjali Ferreira], provided care and completed [facility] documentation on this patient. I have reviewed the student's documentation and agree with the findings.
[2023-06-15 20:00] VITALS: O2SAT 94
[2023-06-15] MEDS: MICONAZOLE NITRATE 2% CREAM 30 GM TUBE 1 APPLIC TOPICAL (20:39)
[2023-06-15] MEDS: traZODone HCL 50 MG TABLET 100 MG PO (20:41)
[2023-06-15 21:24] VITALS: BP 116/44; PULSE 68; RESP 18; TEMP 37.2; O2SAT 94
[2023-06-16 05:11] VITALS: BP 142/52; PULSE 70; RESP 16; TEMP 36.9; O2SAT 95
[2023-06-16 06:26] LABS: Hemoglobin 11.7 g/dL (14.0-18.0); Mean Corpuscular HGB Conc 32.5 g/dl (32-36); Mean Corpuscular Hemoglobin 32.6 pg (26-34); Mean Corpuscular Volume 100.3 fl (80-100); Mean Platelet Volume 10.7 fl (7.4-10.4); Platelet Count Result 168 k/mm3 (150-375); Red Blood Count 3.59 M/mm3 (4.6-6.20); Red Cell Distribution Width 13.5 % (11.5-14.5)
[2023-06-16 06:34] LABS: Anion Gap 5 mmol/L (8-16); Blood Urea Nitrogen 20 mg/dL (9-20); Carbon Dioxide 29 mmol/L (22-30); Chloride 104 mmol/L (98-107); Estimated CRCL calculation 56 ml/min; Estimated Glomerular Filt Rate > 60; Glucose 109 mg/dL (65-110); Potassium 4.1 mmol/L (3.4-5.0); Sodium 138 mmol/L (137-145)
[2023-06-16 07:10] VITALS: PULSE 63; RESP 18; O2SAT 93
[2023-06-16] MEDS: FLUTICASONE/UMECLIDIN/VILANTER 100-62.5-25 MCG ELLIPTA 1 PUFF INHALATION (07:13)
--- NOTE | 2023-06-16 07:59 | PM.DS ---
DS: Admitting Diagnosis Discharge Date 06/16/2023 Admitting Diagnosis SANDI Major depressive disorder, recurrent, mild Benign prostatic hyperplasia with lower urinary tract symptoms CHF COPD Essential HTN Hyperlipidemia DS: Discharge Diagnosis Discharge Diagnosis (1) SANDI (acute kidney injury): Code(s): N17.9 - Acute kidney failure, unspecified Status: Acute Assessment and Plan: Resolved after IV fluids (2) Accidental clonazepam overdose: Code(s): T42.4X1A - Poisoning by benzodiazepines, accidental (unintentional), initial encounter Status: Acute Assessment and Plan: Patient was started on clonazepam for muscle tremors and jerking upper extremities.? He has been taking this daily and then took additional as he thought this was just as needed I did not realize it was in his daily medication.? He has been sleeping extra at home forgetful and falling.? He has not been eating and drinking appropriately for at least a week. Patient states he does not plan to have her restart taking clonazepam. (3) CHF (congestive heart failure), NYHA class I: Code(s): I50.9 - Heart failure, unspecified Status: Chronic Assessment and Plan: No pulmonary edema, no shortness of breath, no peripheral swelling.? Recent echocardiogram from last month shows grade 1 diastolic dysfunction and mild aortic stenosis. No shortness of breath or swelling noted.? No rales or rhonchi. (4) COPD (chronic obstructive pulmonary disease): Qualifiers: COPD type: unspecified COPD Qualified Code(s): J44.9 - Chronic obstructive pulmonary disease, unspecified Code(s): J44.9 - Chronic obstructive pulmonary disease, unspecified Status: Chronic Assessment and Plan: Stable, no shortness of breath at this time. No wheezing or shortness of breath. (5) HTN (hypertension): Code(s): I10 - Essential (primary) hypertension Status: Chronic Assessment and Plan: Stable, continue to trend.? Consider restarting losartan tomorrow Losartan restarted (6) Major depressive disorder, recurrent, mild: Code(s): F33.0 - Major depressive disorder, recurrent, mild Status: Acute Assessment and Plan: Stable, no HI/SI (7) Physical deconditioning: Code(s): R53.81 - Other malaise Status: Acute Assessment and Plan: Patient requires increased physical and occupational therapy for overall deconditioning. Transfer patient to SNF/swing bed for PT/OT rehab. Patient seen ambulating with walker then 4 point cane with help of therapy. DS: Summary Hospital Course Reason for hospitalization: Patient was admitted for SANDI related to dehydration related to altered LOC related to accidental clonazepam steady accummulative overdose. Hospital Course: While admitted patient received IV fluids with improvement in renal function. He underwent physical therapy and occupational therapy with findings of debility and overall physical deconditioning. Patient had been residing at home with his daughter who is paid caregiver from department of aging but he needs additional strengthening before returning home. Family was presented some options including [facility] and [facility] Swing Bed. [facility] did not have space so patient was accepted to [facility] swing bed. He is eating and drinking well. No acute changes overnight. Status at Discharge Cognitive/behavioral status at discharge: awake, alert, oriented and pleasant Functional status at discharge: uses cane/walker Overall status at discharge: patient is progressing back to baseline Time Spent with Patient Time attestation: Total time spent providing and/or coordinating discharge services: Time spent: Less than 30 minutes Exam Const: General: cooperative, healthy appearing, comfortable, no acute distress, well developed, awake, Physically active, average body habitus and well nourished Nutr
[2023-06-16] MEDS: SIMETHICONE 125 MG CHEW TAB PO ×2 (08:03→11:51)
[2023-06-16] MEDS: TAMSULOSIN HCL 0.4 MG CAPSULE PO (08:03)
[2023-06-16] MEDS: guaiFENesin 12 HR 600 MG TABCR PO (08:04)
[2023-06-16] MEDS: FENOFIBRATE 160 MG TABLET PO (08:04)
[2023-06-16] MEDS: CHOLECALCIFEROL 1,000 UNITS TABLET 5000 UNITS PO (08:04)
[2023-06-16] MEDS: PANTOPRAZOLE 40 MG TABLET PO (08:04)
[2023-06-16] MEDS: LINACLOTIDE 145 MCG CAPSULE 290 MCG PO (08:04)
[2023-06-16] MEDS: ENOXAPARIN 40 MG/0.4 ML SYRINGE SUB-Q (08:05)
[2023-06-16] MEDS: MULTIVITAMINS THERAPEUTIC TAB (*BKC) 1 TABLET PO (08:05)
[2023-06-16] MEDS: SERTRALINE HCL 50 MG TABLET PO (08:05)
[2023-06-16] MEDS: buPROPion HCL SR (12 HR) 150 MG TAB PO (08:05)
[2023-06-16] MEDS: ATORVASTATIN 40 MG TABLET 80 MG PO (08:06)
[2023-06-16] MEDS: LOSARTAN POTASSIUM 50 MG TABLET PO (08:06)
[2023-06-16] MEDS: LORATADINE 10 MG TABLET PO (08:06)
[2023-06-16] MEDS: FINASTERIDE 5 MG TABLET PO (08:08)
[2023-06-16] MEDS: ASPIRIN 81 MG ENTERIC TABLET PO (08:15)
[2023-06-16] MEDS: BENZONATATE 100 MG CAPSULE 200 MG PO (08:15)
[2023-06-16] MEDS: BACLOFEN 10 MG TABLET PO (08:15)
[2023-06-16] MEDS: MORPHINE SULFATE (*CRX) 30 MG TABCR PO (08:18)
--- NOTE | 2023-06-16 10:00 | PM.DS ---
DS: Admitting Diagnosis Discharge Date 06/16/2023 DS: Summary Time Spent with Patient Time attestation: Total time spent providing and/or coordinating discharge services: DS: Data Data Completed and Pending Labs on day of discharge: Labs from last 24 hours 06/16/23 06:09 WBC 6.0 RBC 3.59 L Hgb 11.7 L Hct 36.0 L MCV 100.3 H MCH 32.6 MCHC 32.5 RDW 13.5 Plt Count 168 MPV 10.7 H Sodium 138 Potassium 4.1 Chloride 104 Carbon Dioxide 29 Anion Gap 5 L BUN 20 Creatinine 1.10 Estim Creat Clear Calc 56 Estimated GFR > 60 Glucose 109 Calcium 9.0 Discharge Plan Discharge Attending physician on discharge: Moy Mckeon Discharging Clinician: Lukas Marina Anticipated Discharge Date/Time: 06/16/23 10:00 Patient Disposition: Hospital Swing Bed Activity: may shower and as tolerated Diet: heart healthy Discharge Instructions: Swing bed admission to [facility] for work with PT/OT. Continue current/home medications. Continue Lovenox for VTE prophylaxis. Repeat Renal function test in 3-7 days. Thank you for [facility]. We hope you were pleased with your care. Patient Instructions: Antibiotic Form, Suicide Prevention (DC) Stand Alone Forms: General Discharge Information Follow-up/Referrals: Naveed Mcintosh MD [Primary Care Provider] - Call for Appointment Discharge Medications: New aspirin 81 mg Tablet,Delayed Release (Dr/Ec) 81 mg PO DAILY Qty: 90 0RF polyethylene glycol 3350 [Miralax] 17 gram Powder In Packet 17 g PO QAM PRN (Reason: Constipation) Qty: 30 0RF simethicone [Gas-X Extra Strength] 125 mg Capsule 125 mg PO QID Qty: 120 0RF sertraline [Zoloft] 50 mg Tablet 50 mg PO DAILY Qty: 90 0RF Continued baclofen 10 mg tablet 10 mg PO DAILY benzonatate 200 mg capsule 200 mg PO BID PRN (Reason: cough) Qty: 60 2RF ketoconazole 2 % cream 1 applic topical DAILY Qty: 60 1RF nitroglycerin 0.3 mg tablet, sublingual 0.3 mg sublingual Q5M PRN (Reason: Chest Pain) Rx Instructions: do not exceed 3 doses per episode finasteride [Proscar] 5 mg tablet 5 mg PO DAILY acetaminophen [Tylenol Extra Strength] 500 mg tablet 500 mg PO Q6H PRN (Reason: Pain) multivitamin Tablet 1 tablet PO DAILY Mucinex 1,200 mg tablet extended release 12hr 1,200 mg PO 1XD losartan 50 mg Tablet 50 mg PO DAILY Linzess 290 mcg capsule 290 mcg PO DAILY omeprazole 20 mg Capsule,Delayed Release(Dr/Ec) 20 mg PO DAILY cholecalciferol (vitamin D3) [Vitamin D3] 125 mcg (5,000 unit) Tablet 125 mcg PO DAILY Zyrtec 10 mg Capsule 10 mg PO DAILY PRN (Reason: allergies) albuterol sulfate [ProAir HFA] 90 mcg/actuation HFA aerosol inhaler 2 puff INHALATION Q4H PRN (Reason: shortness of breath or wheezing) Qty: 8.5 4RF trazodone 100 mg tablet 100 mg PO HS Qty: 30 2RF Breztri Aerosphere 160-9-4.8 mcg/actuation HFA aerosol inhaler 2 inh inhalation QAM AND QPM Qty: 10.7 5RF Rx Instructions: Rinse and spit. This replaces Symbicort and Spiriva. (DME) inhalational spacing device Spacer See Rx Instructions .ROUTE .MEDSUPPLY Qty: 1 0RF Rx Instructions: As directed tamsulosin 0.4 mg capsule 0.4 mg PO DAILY Qty: 90 2RF bupropion HCl 150 mg tablet sustained-release 12 hr 150 mg PO BID Qty: 180 2RF atorvastatin 80 mg tablet 80 mg PO DAILY Qty: 90 1RF morphine 30 mg tablet extended release 30 mg PO QAM Qty: 30 0RF ondansetron 4 mg tablet,disintegrating 4 mg PO Q6H PRN (Reason: nausea and vomiting) Qty: 20 1RF furosemide 40 mg tablet 40 mg PO DAILY Qty: 90 1RF fenofibrate 160 mg tablet 160 mg PO DAILY Qty: 90 1RF sertraline 50 mg tablet 50 mg PO DAILY Qty: 90 1RF Discontinued clonazepam 1 mg tablet 1 mg PO DAILY Qty: 30 2RF aspirin [Aspir-81] 81 mg Tablet,Del
== END 2023-06-16 12:20 | disposition swing bed (61) ==
LOC: ANHED 08:37 → ANH3MEDSUR 15:18
PROVIDERS: Nurse Practitioner; Admitting Provider Family Medicine; Emergency Provider Emergency Medicine; PCP Family Medicine Adolescent Medicine; Visit Provider Internal Medicine
DX: N17.9 Acute kidney failure, unspecified (principal); T42.4X1A Poisoning by benzodiazepines, accidental (unintentional), initial encounter; F33.0 Major depressive disorder, recurrent, mild; N40.1 Benign prostatic hyperplasia with lower urinary tract symptoms; I11.0 Hypertensive heart disease with heart failure; I50.9 Heart failure, unspecified; J44.9 Chronic obstructive pulmonary disease, unspecified; E78.5 Hyperlipidemia, unspecified; R41.82 Altered mental status, unspecified; R19.7 Diarrhea, unspecified; R63.0 Anorexia; Z68.30 Body mass index [BMI] 30.0-30.9, adult; I45.10 Unspecified right bundle-branch block; R29.6 Repeated falls; K21.9 Gastro-esophageal reflux disease without esophagitis; Z90.49 Acquired absence of other specified parts of digestive tract; Z87.891 Personal history of nicotine dependence; Z86.12 Personal history of poliomyelitis; Z79.51 Long term (current) use of inhaled steroids; Z79.82 Long term (current) use of aspirin; Z79.1 Long term (current) use of non-steroidal anti-inflammatories (NSAID); Z79.899 Other long term (current) drug therapy; Z82.49 Family history of ischemic heart disease and other diseases of the circulatory system; Z80.0 Family history of malignant neoplasm of digestive organs; Z80.2 Family history of malignant neoplasm of other respiratory and intrathoracic organs
CPT/HCPCS: 36415; 70450; 71045; 76775; 80048; 80053; 80069; 81003; 83605; 83690; 83735; 84439; 84443; 84480; 85025; 85027; 85610; 85730; 93005; 94640; 96361; 96372; 96374; 97110; 97116; 97161; 97165; 97530; 97535; 99285; A9270; G0378; J1650; J2405; J7030

== ENCOUNTER 2023-06-16 13:05 | Inpatient (IN) | payer MEDICARE, SELFPAY ==
[2023-06-16 13:15] VITALS: BP 133/68; PULSE 90; RESP 18; TEMP 37; O2SAT 95; BMI 27.6
--- NOTE | 2023-06-16 13:20 | ADMGEN ---
This patient, Russell Morse, was admitted to 2nd Floor Room 203-2. Patient/family oriented to hospital policies and general routines including ID bracelet, bed and alarms, visiting hours, pain management, procedures, bathroom and other care routines, personal items, smoking policy, room service/diet, and visiting hours. Information on how to activate the Rapid Response Team has been discussed. Patient/Family are encouraged to report perceived risks to care and to ask questions if they do not understand what they are told or what they should do.
[2023-06-16] MEDS: SIMETHICONE 80 MG TAB.CHEW PO ×2 (17:22→20:10)
[2023-06-16] MEDS: buPROPion HCL SR (12 HR) 150 MG TAB PO (20:10)
[2023-06-16] MEDS: guaiFENesin 12 HR 600 MG TABCR PO (20:10)
[2023-06-16] MEDS: traZODone HCL 50 MG TABLET 100 MG PO (20:10)
[2023-06-16 23:05] VITALS: BP 125/54; PULSE 82; RESP 15; TEMP 36.5; O2SAT 95
[2023-06-17 08:00] VITALS: BP 137/65; PULSE 83; RESP 14; TEMP 36.6; O2SAT 95
--- NOTE | 2023-06-17 08:03 | PM.IMHP ---
H&P: HPI History of Present Illness Date/Time: 06/17/23 08:03 Chief Complaint: Swing bed admission for strengthening and endurance Narrative: Patient is a 78 year old male with a past medical history of CHF, GERD, COPD who presented to the ED at [facility] with complaints of generalized weakness on 06/13/23, who is being admitted currently for swing bed for rehab, strengthening and endurance. During admission it was noted his renal function was elevated with a BUN/Cr of 81/2.4 and a GFR of 26. It was noted at the time of admission that he was doubling his dose of Clonazepam that he was recently started on. Family noticed the improper administration and stopped the Clonazepam. Shortly after stopping the drug it was noted that the patient started to have some diarrhea, and a decrease in his PO intake, which prompted them to bring him to the ED. He was given fluids and was rehydrated. Due to the increased weakness, PT, OT evaluation it was decided that the patient would benefit from intensive rehab for strengthen and endurance. This patient will be admitted to a swing bed for rehab, related to increased weakness and deconditioning from recent illness causing weakness, falls, and decreased activity. Currently patient is sitting in the chair enjoying his breakfast. He currently denies any chest pain, shortness of breath, nausea, vomiting, diarrhea, constipation, weakness or fatigue. He did complain of congestion. He denies any headaches, dizziness, fevers, sweats, or chills. He has started working with PT and has been able to stand and has done some walking with the need for resting breaks related to physical deconditioning. He walks with a cane at baseline. Patient is being admitted to the [facility] for swing bed and rehab. Review of Systems Review of Systems: All systems reviewed & are unremarkable except as noted in HPI and below PMFSH Past Medical History Medical History (Updated 06/17/23 @ 08:36 by KAM Grove) Abdominal aortic aneurysm, without rupture 02/07 CT Accidental clonazepam overdose Acute alteration in mental status SANDI (acute kidney injury) Aortic stenosis Mild - Echo 05/15/2022 Atherosclerotic heart disease of [place] coronary artery without angina pectoris Bilateral primary osteoarthritis of knee CHF (congestive heart failure), NYHA class I EF 45-50% 10/13 Constipation COPD (chronic obstructive pulmonary disease) Family history of colon cancer in father Generalized weakness GERD (gastroesophageal reflux disease) Herpes zoster Herpes zoster encephalitis History of colon polyps History of poliomyelitis History of tobacco use HTN (hypertension) Hx SBO (~05/2007) Hyperlipidemia Ischemic cardiomyopathy Medication administered in error Myoclonus Normal colonoscopy 05/07 NSTEMI (non-ST elevated myocardial infarction) (~08/2019) 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 NSTEMI Other chronic pain Other ill-defined heart diseases Diastolic Dysfunction 10/13 Polio (~1951) Postherpetic neuralgia Primary osteoarthritis, left shoulder Primary osteoarthritis, right shoulder Restless legs syndrome Spinal stenosis, lumbar region without neurogenic claudication Urinary hesitancy Weakness Surgical History Surgical History (Updated 06/17/23 @ 08:25 by Jewel Rea APN-Shonda) H/O colonoscopy with polypectomy H/O rotator cuff surgery Bilateral History of bowel resection History of colon resection History of coronary artery stent placement X2 History of mandibular surgery 1986 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 Bone removed from right hip for reconstructive surgery Presence of coronary angioplasty implant and graft S/P tonsillectomy and adenoidectomy Family History Family History Mother Diabetes mellitus Acute myocardial infarction Father COPD (chronic obstructive pulmonary disease) Colon cancer Sibling
[2023-06-17] MEDS: FLUTICASONE/UMECLIDIN/VILANTER 100-62.5-25 MCG ELLIPTA 1 PUFF INHALATION (09:18)
[2023-06-17] MEDS: SIMETHICONE 80 MG TAB.CHEW PO ×4 (09:19→20:06)
[2023-06-17] MEDS: TAMSULOSIN HCL 0.4 MG CAPSULE PO (09:19)
[2023-06-17] MEDS: LOSARTAN POTASSIUM 50 MG TABLET PO (09:19)
[2023-06-17] MEDS: SERTRALINE HCL 50 MG TABLET PO (09:19)
[2023-06-17] MEDS: CHOLECALCIFEROL 1,000 UNITS TABLET 5000 UNITS PO (09:19)
[2023-06-17] MEDS: FUROSEMIDE 40 MG TABLET PO (09:20)
[2023-06-17] MEDS: MULTIVITAMINS THERAPEUTIC TAB (*BKC) 1 TABLET PO (09:20)
[2023-06-17] MEDS: buPROPion HCL SR (12 HR) 150 MG TAB PO ×2 (09:20→20:06)
[2023-06-17] MEDS: FENOFIBRATE NANOCRYSTALLIZED 145 MG TABLET PO (09:20)
[2023-06-17] MEDS: PANTOPRAZOLE 40 MG TABLET PO (09:21)
[2023-06-17] MEDS: ATORVASTATIN 40 MG TABLET 80 MG PO (09:21)
[2023-06-17] MEDS: BACLOFEN 10 MG TABLET PO (09:21)
[2023-06-17] MEDS: MORPHINE SULFATE (*CRX) 30 MG TABCR PO (09:21)
[2023-06-17] MEDS: FINASTERIDE 5 MG TABLET PO (09:21)
[2023-06-17] MEDS: guaiFENesin 12 HR 600 MG TABCR PO ×2 (09:22→20:06)
[2023-06-17] MEDS: ASPIRIN 81 MG ENTERIC TABLET PO (09:22)
[2023-06-17] MEDS: LORATADINE/PSEUDOEPHEDRINE (*CRX) 10/240 MG TABLET ER 24 HR 1 TAB PO (09:45)
--- NOTE | 2023-06-17 13:43 | PC.NURSE ---
Scanner on computer # 11 will not scan the pt medication or braclet for Linaclotide. Pharmacy aware. RO
[2023-06-17] MEDS: ACETAMINOPHEN 500 MG TABLET PO (15:57)
[2023-06-17 16:00] VITALS: BP 133/51; PULSE 77; TEMP 36.7; O2SAT 94
[2023-06-17] MEDS: traZODone HCL 50 MG TABLET 100 MG PO (20:06)
[2023-06-18] VITALS: BP 135/53; PULSE 68; RESP 18; TEMP 36.3; O2SAT 93
[2023-06-18 08:00] VITALS: BP 138/78; PULSE 78; RESP 18; TEMP 36.1; O2SAT 94
[2023-06-18] MEDS: FLUTICASONE/UMECLIDIN/VILANTER 100-62.5-25 MCG ELLIPTA 1 PUFF INHALATION (08:25)
[2023-06-18] MEDS: SIMETHICONE 80 MG TAB.CHEW PO ×4 (08:26→20:12)
[2023-06-18] MEDS: CHOLECALCIFEROL 1,000 UNITS TABLET 5000 UNITS PO (08:26)
[2023-06-18] MEDS: MULTIVITAMINS THERAPEUTIC TAB (*BKC) 1 TABLET PO (08:27)
[2023-06-18] MEDS: SERTRALINE HCL 50 MG TABLET PO (08:27)
[2023-06-18] MEDS: FENOFIBRATE NANOCRYSTALLIZED 145 MG TABLET PO (08:27)
[2023-06-18] MEDS: FUROSEMIDE 40 MG TABLET PO (08:28)
[2023-06-18] MEDS: BACLOFEN 10 MG TABLET PO (08:28)
[2023-06-18] MEDS: TAMSULOSIN HCL 0.4 MG CAPSULE PO (08:28)
[2023-06-18] MEDS: LOSARTAN POTASSIUM 50 MG TABLET PO (08:28)
[2023-06-18] MEDS: ASPIRIN 81 MG ENTERIC TABLET PO (08:28)
[2023-06-18] MEDS: buPROPion HCL SR (12 HR) 150 MG TAB PO ×2 (08:28→20:12)
[2023-06-18] MEDS: PANTOPRAZOLE 40 MG TABLET PO (08:28)
[2023-06-18] MEDS: LORATADINE/PSEUDOEPHEDRINE (*CRX) 10/240 MG TABLET ER 24 HR 1 TAB PO (08:29)
[2023-06-18] MEDS: ATORVASTATIN 40 MG TABLET 80 MG PO (08:29)
[2023-06-18] MEDS: guaiFENesin 12 HR 600 MG TABCR PO ×2 (08:29→20:12)
[2023-06-18] MEDS: FINASTERIDE 5 MG TABLET PO (08:29)
[2023-06-18] MEDS: MORPHINE SULFATE (*CRX) 30 MG TABCR PO (08:29)
--- NOTE | 2023-06-18 09:15 | PM.IMPN ---
Progress Note: A&P Assessment and Plan (1) Physical deconditioning: Code(s): R53.81 - Other malaise Status: Acute Assessment and Plan: Swing bed admission PT/OT Fall precautions Doing well with walker (2) Hyperlipidemia: Qualifiers: Hyperlipidemia type: mixed hyperlipidemia Qualified Code(s): E78.2 - Mixed hyperlipidemia Code(s): E78.5 - Hyperlipidemia, unspecified Status: Acute Assessment and Plan: Chronic Continue home atorvastatin (3) Major depressive disorder, recurrent, mild: Code(s): F33.0 - Major depressive disorder, recurrent, mild Status: Acute Assessment and Plan: Stable and chronic Continue wellbutrin, sertraline Trend mood Adjust medication if indicated (4) Benign prostatic hyperplasia with lower urinary tract symptoms: Qualifiers: Lower urinary tract symptom detail: weak urinary stream Qualified Code(s): N40.1 - Benign prostatic hyperplasia with lower urinary tract symptoms; R39.12 - Poor urinary stream Code(s): N40.1 - Benign prostatic hyperplasia with lower urinary tract symptoms Status: Acute Assessment and Plan: Continue home finasteride, and tamsulosin Trend urine output bladder scan if indicated (5) Anemia: Qualifiers: Anemia type: unspecified type Qualified Code(s): D64.9 - Anemia, unspecified Code(s): D64.9 - Anemia, unspecified Status: Acute Assessment and Plan: Current H/H 11.7/36.0, MCV 100.3 (06/17/23) next lab check is Thursday Macrocytic anemia most likely iron or B12 deficiency check anemia labs supplement as indicated (6) COPD (chronic obstructive pulmonary disease): Qualifiers: COPD type: unspecified COPD Qualified Code(s): J44.9 - Chronic obstructive pulmonary disease, unspecified Code(s): J44.9 - Chronic obstructive pulmonary disease, unspecified Status: Chronic Assessment and Plan: Continue home inhalers Stable and Chronic Not in exacerbation (7) HTN (hypertension): Qualifiers: Hypertension type: primary hypertension Qualified Code(s): I10 - Essential (primary) hypertension Code(s): I10 - Essential (primary) hypertension Status: Chronic Assessment and Plan: BP is 135/53 Continue home losartan Trend BP Adjust therapy as indicated (8) CHF (congestive heart failure), NYHA class I: Qualifiers: Congestive heart failure type: diastolic Congestive heart failure chronicity: chronic Qualified Code(s): I50.32 - Chronic diastolic (congestive) heart failure Code(s): I50.9 - Heart failure, unspecified Status: Chronic Assessment and Plan: Chronic diastolic heart failure not in exacerbation Echo from 2021 shows EF of 67% Trend urine output Continue home lasix 40mg PO daily Daily weights Adjust therapy as indicated Plan Added loratadine D for congestion x2 doses will need changed to Loratadine regular Time Spent With Patient Time: 33 minutes Time with patient: 25 - 35 minutes Subjective Date/time seen: 06/18/23 09:24 Interval history: patient is doing well today. Patient is able to stand and get to his bed and very stable manner. Has been work with PT and OT. Currently denies any chest pain, shortness of breath, nausea, vomiting, diarrhea or constipation. Patient also stated that the congestion is better today. Will change the loratadine D over to regular loratadine. Review of Systems Review of Systems: All systems reviewed & are unremarkable except as noted in HPI and below Exam Narrative: General: well-nourished, well-appearing 78-year-old male, sitting up in chair, comfortable, NARD Neuro: awake, alert and oriented x4, speech clear, no focal neuro deficits noted HEENMT: normocephalic, atraumati
--- NOTE | 2023-06-18 09:15 | P.PNIM_ITS ---
Progress Note: A&P Assessment and Plan (1) Physical deconditioning: Code(s): R53.81 - Other malaise Status: Acute Assessment and Plan: * Swing bed admission * PT/OT * Fall precautions * Doing well with walker (2) Hyperlipidemia: Qualifiers: Hyperlipidemia type: mixed hyperlipidemia Qualified Code(s): E78.2 - Mixed hyperlipidemia Code(s): E78.5 - Hyperlipidemia, unspecified Status: Acute Assessment and Plan: * Chronic * Continue home atorvastatin (3) Major depressive disorder, recurrent, mild: Code(s): F33.0 - Major depressive disorder, recurrent, mild Status: Acute Assessment and Plan: * Stable and chronic * Continue wellbutrin, sertraline * Trend mood * Adjust medication if indicated (4) Benign prostatic hyperplasia with lower urinary tract symptoms: Qualifiers: Lower urinary tract symptom detail: weak urinary stream Qualified Code(s): N40.1 - Benign prostatic hyperplasia with lower urinary tract symptoms; R39.12 - Poor urinary stream Code(s): N40.1 - Benign prostatic hyperplasia with lower urinary tract symptoms Status: Acute Assessment and Plan: * Continue home finasteride, and tamsulosin * Trend urine output * bladder scan if indicated (5) Anemia: Qualifiers: Anemia type: unspecified type Qualified Code(s): D64.9 - Anemia, unspecified Code(s): D64.9 - Anemia, unspecified Status: Acute Assessment and Plan: * Current H/H 11.7/36.0, MCV 100.3 (06/17/23) next lab check is Thursday * Macrocytic anemia most likely iron or B12 deficiency * check anemia labs * supplement as indicated (6) COPD (chronic obstructive pulmonary disease): Qualifiers: COPD type: unspecified COPD Qualified Code(s): J44.9 - Chronic obstructive pulmonary disease, unspecified Code(s): J44.9 - Chronic obstructive pulmonary disease, unspecified Status: Chronic Assessment and Plan: * Continue home inhalers * Stable and Chronic * Not in exacerbation (7) HTN (hypertension): Qualifiers: Hypertension type: primary hypertension Qualified Code(s): I10 - Essential (primary) hypertension Code(s): I10 - Essential (primary) hypertension Status: Chronic Assessment and Plan: * BP is 135/53 * Continue home losartan * Trend BP * Adjust therapy as indicated (8) CHF (congestive heart failure), NYHA class I: Qualifiers: Congestive heart failure type: diastolic Congestive heart failure chronicity: chronic Qualified Code(s): I50.32 - Chronic diastolic (congestive) heart failure Code(s): I50.9 - Heart failure, unspecified Status: Chronic Assessment and Plan: * Chronic diastolic heart failure not in exacerbation * Echo from 2021 shows EF of 67% * Trend urine output * Continue home lasix 40mg PO daily * Daily weights * Adjust therapy as indicated Plan Added loratadine D for congestion x2 doses will need changed to Loratadine regular Time Spent With Patient Time: 33 minutes Time with patient: 25 - 35 minutes Subjective Date/time seen: 06/18/23 09:24 Interval history: patient is doing well today. Patient is able to
[2023-06-18 16:00] VITALS: BP 138/72; PULSE 84; RESP 16; TEMP 36.6; O2SAT 96
[2023-06-18 20:00] VITALS: PULSE 84; RESP 16; O2SAT 96
[2023-06-18] MEDS: traZODone HCL 50 MG TABLET 100 MG PO (20:11)
[2023-06-18] MEDS: ACETAMINOPHEN 500 MG TABLET PO (20:12)
[2023-06-19] VITALS: BP 143/64; PULSE 95; RESP 17; TEMP 36.6; O2SAT 95
[2023-06-19] MEDS: ACETAMINOPHEN 500 MG TABLET PO (07:20)
[2023-06-19 08:00] VITALS: BP 144/74; PULSE 74; RESP 16; TEMP 36.6; O2SAT 95
[2023-06-19] MEDS: FLUTICASONE/UMECLIDIN/VILANTER 100-62.5-25 MCG ELLIPTA 1 PUFF INHALATION (08:38)
[2023-06-19] MEDS: buPROPion HCL SR (12 HR) 150 MG TAB PO ×2 (08:38→20:09)
[2023-06-19] MEDS: CHOLECALCIFEROL 1,000 UNITS TABLET 5000 UNITS PO (08:41)
[2023-06-19] MEDS: ATORVASTATIN 40 MG TABLET 80 MG PO (08:43)
[2023-06-19] MEDS: guaiFENesin 12 HR 600 MG TABCR PO ×2 (08:43→20:08)
[2023-06-19] MEDS: FENOFIBRATE NANOCRYSTALLIZED 145 MG TABLET PO (08:43)
[2023-06-19] MEDS: SIMETHICONE 80 MG TAB.CHEW PO ×4 (08:43→20:08)
[2023-06-19] MEDS: FUROSEMIDE 40 MG TABLET PO (08:44)
[2023-06-19] MEDS: BACLOFEN 10 MG TABLET PO (08:44)
[2023-06-19] MEDS: LORATADINE 10 MG TABLET PO (08:44)
[2023-06-19] MEDS: ASPIRIN 81 MG ENTERIC TABLET PO (08:44)
[2023-06-19] MEDS: TAMSULOSIN HCL 0.4 MG CAPSULE PO (08:44)
[2023-06-19] MEDS: MULTIVITAMINS THERAPEUTIC TAB (*BKC) 1 TABLET PO (08:44)
[2023-06-19] MEDS: LOSARTAN POTASSIUM 50 MG TABLET PO (08:44)
[2023-06-19] MEDS: PANTOPRAZOLE 40 MG TABLET PO (08:44)
[2023-06-19] MEDS: MORPHINE SULFATE (*CRX) 30 MG TABCR PO (08:44)
[2023-06-19] MEDS: SERTRALINE HCL 50 MG TABLET PO (08:45)
[2023-06-19] MEDS: FINASTERIDE 5 MG TABLET PO (08:45)
[2023-06-19 15:43] VITALS: BP 148/64; PULSE 78; RESP 18; TEMP 36.6; O2SAT 94
[2023-06-19] MEDS: CELECOXIB 100 MG CAPSULE PO (17:05)
[2023-06-19] MEDS: traZODone HCL 50 MG TABLET 100 MG PO (20:08)
[2023-06-20] VITALS: BP 109/44; PULSE 64; RESP 16; TEMP 36.3; O2SAT 93
[2023-06-20 05:34] LABS: Basophils Absolute Auto 0.01 K/mm3 (0.00-0.10); Basophils Percent Auto 0.1 % (0.0-1.0); Eosinophils Absolute Auto 0.17 K/mm3 (0.02-0.50); Eosinophils Percent Auto 2.5 % (1.0-6.0); Hematocrit 32.5 % (37.0-46.0); Hemoglobin 10.9 g/dL (12.4-15.3); Immature Granulocyte Absolute 0.09 K/mm3 (0.00-0.00); Immature Granulocyte Percent A 1.3 % (0.0-0.0); Mean Corpuscular HGB Conc 33.5 g/dL (32.0-36.0); Mean Corpuscular Volume 98.5 fL (78.0-102.0); Monocytes Absolute Auto 0.65 K/mm3 (0.10-0.90); Monocytes Percent Auto 9.7 % (2.0-11.0); Neutrophils Absolute Auto 4.4 K/mm3 (1.7-7.2); Neutrophils Percent Auto 65.4 % (50.0-70.0); Platelet Count Result 151 K/mm3 (150-420); Red Cell Distribution Width 13.3 % (11.6-14.4); White Blood Count 6.7 K/mm3 (4.8-10.8)
[2023-06-20 06:54] LABS: Alanine Aminotransferase 31 U/L (16-63); Albumin Level 2.6 g/dL (3.4-5.0); Alkaline Phosphatase 108 U/L (46-116); Anion Gap 7 mmol/L (8-16); Aspartate Amino Transferase 19 U/L (15-37); Bilirubin,Total 0.6 mg/dL (0.00-1.00); Blood Urea Nitrogen 25 mg/dL (7-18); Calcium 8.2 mg/dL (8.5-10.1); Carbon Dioxide 32 mmol/L (21-32); Chloride 102 mmol/L (98-108); Estimated CRCL calculation 42 ml/min; Estimated Glomerular Filt Rate 51; Ferritin 164 ng/mL (26-388); Folic Acid 13.6 ng/mL (8.6->20); Glucose 99 mg/dL (70-99); Iron 92 ug/dL (65-175); Osmolality Calculated 296 mOsm/kg (285-295); Percent Iron Saturation 38 % (12-57); Potassium 3.9 mmol/L (3.5-5.1); Sodium 141 mmol/L (136-145); Total Protein 5.3 g/dL (6.4-8.2); Vitamin B12 335 pg/mL (193-986)
[2023-06-20 08:00] VITALS: BP 112/50; PULSE 68; TEMP 36.6; O2SAT 97
[2023-06-20] MEDS: CELECOXIB 100 MG CAPSULE PO ×2 (08:25→17:01)
[2023-06-20] MEDS: FLUTICASONE/UMECLIDIN/VILANTER 100-62.5-25 MCG ELLIPTA 1 PUFF INHALATION (09:22)
[2023-06-20] MEDS: CHOLECALCIFEROL 1,000 UNITS TABLET 5000 UNITS PO (09:23)
[2023-06-20] MEDS: MULTIVITAMINS THERAPEUTIC TAB (*BKC) 1 TABLET PO (09:23)
[2023-06-20] MEDS: FUROSEMIDE 40 MG TABLET PO (09:23)
[2023-06-20] MEDS: ATORVASTATIN 40 MG TABLET 80 MG PO (09:24)
[2023-06-20] MEDS: LOSARTAN POTASSIUM 50 MG TABLET PO (09:24)
[2023-06-20] MEDS: PANTOPRAZOLE 40 MG TABLET PO (09:24)
[2023-06-20] MEDS: MORPHINE SULFATE (*CRX) 30 MG TABCR PO (09:24)
[2023-06-20] MEDS: TAMSULOSIN HCL 0.4 MG CAPSULE PO (09:24)
[2023-06-20] MEDS: SIMETHICONE 80 MG TAB.CHEW PO ×4 (09:24→20:49)
[2023-06-20] MEDS: LORATADINE 10 MG TABLET PO (09:24)
[2023-06-20] MEDS: SERTRALINE HCL 50 MG TABLET PO (09:24)
[2023-06-20] MEDS: FENOFIBRATE NANOCRYSTALLIZED 145 MG TABLET PO (09:25)
[2023-06-20] MEDS: ASPIRIN 81 MG ENTERIC TABLET PO (09:25)
[2023-06-20] MEDS: buPROPion HCL SR (12 HR) 150 MG TAB PO ×2 (09:25→20:49)
[2023-06-20] MEDS: BACLOFEN 10 MG TABLET PO (09:25)
[2023-06-20] MEDS: guaiFENesin 12 HR 600 MG TABCR PO ×2 (09:25→20:49)
[2023-06-20] MEDS: FINASTERIDE 5 MG TABLET PO (09:26)
--- NOTE | 2023-06-20 10:42 | PM.EVENT ---
Event Note Event Note Event Note: Labs reviewed with mild increase in serum creatinine mild decrease in GFR still stable creatinine clearance. Encourage adequate oral intake. Iron B12 folic acid appear unremarkable. Mild anemia with hemoglobin over 10. No acute needs per patient and nursing staff. Full exam deferred Due to swing bed status.
--- NOTE | 2023-06-20 14:38 | PC.NURSE ---
scanner on computer 11 would not scan pt bracelet but did scan medication at 1315. Simethacone. ANAYA
[2023-06-20 16:30] VITALS: BP 105/48; PULSE 79; RESP 18; TEMP 36.3; O2SAT 95
[2023-06-20] MEDS: traZODone HCL 50 MG TABLET 100 MG PO (20:49)
[2023-06-21] VITALS: BP 113/46; PULSE 70; RESP 16; TEMP 36.3; O2SAT 93
[2023-06-21 07:30] LABS: Anion Gap 5 mmol/L (8-16); Blood Urea Nitrogen 26 mg/dL (7-18); Calcium 8.6 mg/dL (8.5-10.1); Carbon Dioxide 33 mmol/L (21-32); Chloride 102 mmol/L (98-108); Estimated CRCL calculation 40 ml/min; Estimated Glomerular Filt Rate 48; Glucose 103 mg/dL (70-99); Osmolality Calculated 294 mOsm/kg (285-295); Potassium 3.9 mmol/L (3.5-5.1); Sodium 140 mmol/L (136-145)
[2023-06-21 08:00] VITALS: BP 123/46; PULSE 82; RESP 14; TEMP 36.3; O2SAT 92
[2023-06-21] MEDS: CELECOXIB 100 MG CAPSULE PO ×2 (08:25→17:02)
[2023-06-21] MEDS: FLUTICASONE/UMECLIDIN/VILANTER 100-62.5-25 MCG ELLIPTA 1 PUFF INHALATION (09:46)
[2023-06-21] MEDS: CHOLECALCIFEROL 1,000 UNITS TABLET 5000 UNITS PO (09:47)
[2023-06-21] MEDS: guaiFENesin 12 HR 600 MG TABCR PO ×2 (09:48→20:40)
[2023-06-21] MEDS: SIMETHICONE 80 MG TAB.CHEW PO ×3 (09:48→20:40)
[2023-06-21] MEDS: FENOFIBRATE NANOCRYSTALLIZED 145 MG TABLET PO (09:48)
[2023-06-21] MEDS: MULTIVITAMINS THERAPEUTIC TAB (*BKC) 1 TABLET PO (09:48)
[2023-06-21] MEDS: LOSARTAN POTASSIUM 50 MG TABLET PO (09:48)
[2023-06-21] MEDS: SERTRALINE HCL 50 MG TABLET PO (09:48)
[2023-06-21] MEDS: buPROPion HCL SR (12 HR) 150 MG TAB PO ×2 (09:49→20:40)
[2023-06-21] MEDS: FUROSEMIDE 40 MG TABLET PO (09:49)
[2023-06-21] MEDS: FINASTERIDE 5 MG TABLET PO (09:49)
[2023-06-21] MEDS: LORATADINE 10 MG TABLET PO (09:49)
[2023-06-21] MEDS: MORPHINE SULFATE (*CRX) 30 MG TABCR PO (09:49)
[2023-06-21] MEDS: BACLOFEN 10 MG TABLET PO (09:49)
[2023-06-21] MEDS: TAMSULOSIN HCL 0.4 MG CAPSULE PO (09:49)
[2023-06-21] MEDS: ATORVASTATIN 40 MG TABLET 80 MG PO (09:49)
[2023-06-21] MEDS: PANTOPRAZOLE 40 MG TABLET PO (09:50)
[2023-06-21] MEDS: ASPIRIN 81 MG ENTERIC TABLET PO (09:50)
[2023-06-21 16:00] VITALS: BP 107/59; PULSE 87; RESP 18; TEMP 36.4; O2SAT 91
--- NOTE | 2023-06-21 18:53 | PC.NURSE ---
Patient able to transfer with stand by assist. Ambulates with gait belt and cane. Alert and oriented. Watching movies on tablet. Fed self supper. Call light and belongings within reach.
[2023-06-21 20:00] VITALS: PULSE 87; RESP 18; O2SAT 96
[2023-06-21] MEDS: ACETAMINOPHEN 500 MG TABLET PO (20:40)
[2023-06-21] MEDS: traZODone HCL 50 MG TABLET 100 MG PO (20:40)
[2023-06-22] VITALS: BP 125/41; PULSE 82; RESP 17; TEMP 36.8; O2SAT 96
[2023-06-22 08:00] VITALS: BP 141/56; PULSE 71; RESP 14; TEMP 36.2; O2SAT 98
[2023-06-22] MEDS: CELECOXIB 100 MG CAPSULE PO ×2 (08:30→17:10)
[2023-06-22] MEDS: FLUTICASONE/UMECLIDIN/VILANTER 100-62.5-25 MCG ELLIPTA 1 PUFF INHALATION (09:27)
[2023-06-22] MEDS: FUROSEMIDE 40 MG TABLET PO (09:28)
[2023-06-22] MEDS: buPROPion HCL SR (12 HR) 150 MG TAB PO ×2 (09:28→20:16)
[2023-06-22] MEDS: SIMETHICONE 80 MG TAB.CHEW PO ×4 (09:28→20:16)
[2023-06-22] MEDS: guaiFENesin 12 HR 600 MG TABCR PO ×2 (09:28→20:16)
[2023-06-22] MEDS: FENOFIBRATE NANOCRYSTALLIZED 145 MG TABLET PO (09:28)
[2023-06-22] MEDS: TAMSULOSIN HCL 0.4 MG CAPSULE PO (09:29)
[2023-06-22] MEDS: ATORVASTATIN 40 MG TABLET 80 MG PO (09:29)
[2023-06-22] MEDS: LOSARTAN POTASSIUM 50 MG TABLET PO (09:29)
[2023-06-22] MEDS: ASPIRIN 81 MG ENTERIC TABLET PO (09:29)
[2023-06-22] MEDS: SERTRALINE HCL 50 MG TABLET PO (09:29)
[2023-06-22] MEDS: LORATADINE 10 MG TABLET PO (09:29)
[2023-06-22] MEDS: FINASTERIDE 5 MG TABLET PO (09:29)
[2023-06-22] MEDS: BACLOFEN 10 MG TABLET PO (09:29)
[2023-06-22] MEDS: MORPHINE SULFATE (*CRX) 30 MG TABCR PO (09:29)
[2023-06-22] MEDS: PANTOPRAZOLE 40 MG TABLET PO (09:30)
[2023-06-22] MEDS: MULTIVITAMINS THERAPEUTIC TAB (*BKC) 1 TABLET PO (09:30)
--- NOTE | 2023-06-22 10:14 | PM.DS ---
DS: Admitting Diagnosis Discharge Date 06/25/2023 Admitting Diagnosis Physical Deconditioning DS: Discharge Diagnosis Discharge Diagnosis Plan See Hospital Course DS: Summary Hospital Course Reason for hospitalization: Physical deconditioning Hospital Course: Mr. Morse is a 78-year-old gentleman who presented to an outside hospital with complaints of generalized weakness on 06/13/2023. During outside hospital admission patient was noted to be in acute kidney injury and it was thought to be secondary to dehydration. Patient was hydrated and has had significant improvement in his renal function. Also during that admission it was noted that patient was doubling his dose of clonazepam and the family had discontinued the medication because of the patient double dosing. Shortly after stopping the clonazepam patient began having diarrhea and decreased oral intake. During hospitalization patient was noted to have increased weakness and physical therapy as well as occupational therapy did evaluate patient and thought that he would benefit from rehab. Patient was then admitted to this facility for a swing bed and daily physical therapy as well as occupational therapy. Patient has progressed very well on at this point time is able to walk with his cane with standby assistance. Physical therapy states that patient has done well and is ready for discharge from their standpoint. Upon discharge patient will be going home with his son. Patient's daughter will also be available to assist patient with his medications in the morning. It has been discussed with patient that he does need to increase his oral intake because there has been a slight elevation in his kidney function. Patient states at times he does have difficulty drinking fluids throughout the day. Patient will a follow-up with primary care provider to have laboratories evaluated. Patient was to be discharged on 06/22/2023, but unfortunately patient's family was unable to take patient home because not all arrangements had been made. Patient has continued working with therapy and continues to do very well. At this point time before patient's family has everything prepared and patient is ready for discharge. Status at Discharge Functional status at discharge: uses cane/walker Overall status at discharge: patient is back to baseline Time Spent with Patient Time attestation: Total time spent providing and/or coordinating discharge services:30 Exam Narrative: Constitutional: Patient is well-nourished in no acute distress. Patient is alert and oriented x3 HEENT: Moist mucous membranes. No scleral icterus. No lymphadenopathy. Neck: No carotid bruits noted no JVD noted Lungs: Lung sounds are clear to auscultation bilaterally. No accessory muscle use. No rhonchi, rales, or wheezes noted. Cardiovascular: Apical pulse is regular rate and rhythm. S1-S2 noted, no S3 or S4 noted. No gallops, murmurs, or rubs noted. Abdomen: Soft, round, and nontender. No palpable masses. Extremities: Trace edema to bilateral lower extremities. Nontender. Skin: Patient does have multiple ecchymotic areas to bilateral lower extremities and there is a scabbed area noted to left velasquez and patient states this is from his brace that he wears for his footdrop.. Neurological: No focal neurological deficits. Cranial nerves II-XII grossly intact. Psychiatric: Cooperative, appropriate mood, and affect Discharge Plan Discharge Attending physician on discharge: Moy Mckeon Discharging Clinician: Alice Vizcaino Anticipated Discharge Date/Time: 06/22/23 12:00 Patient Disposition: Home Health Service Activity: as tolerated and other - see discharge instructions Diet: heart healthy and other - see discharge instructions Discharge Instructions: Please ensure that you are drinking plenty of water throughout the day. You will need to follow-up with your primary care provider within the nex
[2023-06-22 16:00] VITALS: BP 103/42; PULSE 74; RESP 16; TEMP 36.7; O2SAT 93
[2023-06-22] MEDS: traZODone HCL 50 MG TABLET 100 MG PO (20:16)
[2023-06-23] VITALS: BP 116/46; PULSE 78; RESP 18; TEMP 36.4; O2SAT 92
[2023-06-23 08:00] VITALS: BP 140/61; PULSE 72; RESP 18; TEMP 36.8; O2SAT 94
[2023-06-23] MEDS: ATORVASTATIN 40 MG TABLET 80 MG PO (09:13)
[2023-06-23] MEDS: CELECOXIB 100 MG CAPSULE PO ×2 (09:14→16:55)
[2023-06-23] MEDS: FENOFIBRATE NANOCRYSTALLIZED 145 MG TABLET PO (09:15)
[2023-06-23] MEDS: buPROPion HCL SR (12 HR) 150 MG TAB PO ×2 (09:15→20:53)
[2023-06-23] MEDS: MORPHINE SULFATE (*CRX) 30 MG TABCR PO (09:15)
[2023-06-23] MEDS: ASPIRIN 81 MG ENTERIC TABLET PO (09:15)
[2023-06-23] MEDS: FUROSEMIDE 40 MG TABLET PO (09:15)
[2023-06-23] MEDS: MULTIVITAMINS THERAPEUTIC TAB (*BKC) 1 TABLET PO (09:15)
[2023-06-23] MEDS: LOSARTAN POTASSIUM 50 MG TABLET PO (09:15)
[2023-06-23] MEDS: PANTOPRAZOLE 40 MG TABLET PO (09:15)
[2023-06-23] MEDS: SIMETHICONE 80 MG TAB.CHEW PO ×4 (09:15→20:53)
[2023-06-23] MEDS: SERTRALINE HCL 50 MG TABLET PO (09:15)
[2023-06-23] MEDS: BACLOFEN 10 MG TABLET PO (09:16)
[2023-06-23] MEDS: LORATADINE 10 MG TABLET PO (09:16)
[2023-06-23] MEDS: FINASTERIDE 5 MG TABLET PO (09:16)
[2023-06-23] MEDS: TAMSULOSIN HCL 0.4 MG CAPSULE PO (09:16)
[2023-06-23] MEDS: FLUTICASONE/UMECLIDIN/VILANTER 100-62.5-25 MCG ELLIPTA 1 PUFF INHALATION (09:17)
[2023-06-23] MEDS: guaiFENesin 12 HR 600 MG TABCR PO ×2 (09:17→20:52)
[2023-06-23] MEDS: CHOLECALCIFEROL 1,000 UNITS TABLET 5000 UNITS PO (09:24)
[2023-06-23 16:00] VITALS: BP 106/51; PULSE 72; RESP 16; TEMP 36.5; O2SAT 93
[2023-06-23] MEDS: traZODone HCL 50 MG TABLET 100 MG PO (20:52)
[2023-06-23 23:48] VITALS: BP 118/64; PULSE 64; RESP 18; TEMP 36.1; O2SAT 95
[2023-06-24 07:49] VITALS: BP 130/52; PULSE 68; RESP 14; TEMP 36.2; O2SAT 96
[2023-06-24] MEDS: CELECOXIB 100 MG CAPSULE PO ×2 (08:10→17:23)
[2023-06-24] MEDS: CHOLECALCIFEROL 1,000 UNITS TABLET 5000 UNITS PO (09:05)
[2023-06-24] MEDS: MULTIVITAMINS THERAPEUTIC TAB (*BKC) 1 TABLET PO (09:09)
[2023-06-24] MEDS: FUROSEMIDE 40 MG TABLET PO (09:09)
[2023-06-24] MEDS: SIMETHICONE 80 MG TAB.CHEW PO ×4 (09:09→21:25)
[2023-06-24] MEDS: LORATADINE 10 MG TABLET PO (09:09)
[2023-06-24] MEDS: buPROPion HCL SR (12 HR) 150 MG TAB PO ×2 (09:09→21:25)
[2023-06-24] MEDS: guaiFENesin 12 HR 600 MG TABCR PO ×2 (09:09→21:25)
[2023-06-24] MEDS: SERTRALINE HCL 50 MG TABLET PO (09:10)
[2023-06-24] MEDS: MORPHINE SULFATE (*CRX) 30 MG TABCR PO (09:10)
[2023-06-24] MEDS: LOSARTAN POTASSIUM 50 MG TABLET PO (09:10)
[2023-06-24] MEDS: FENOFIBRATE NANOCRYSTALLIZED 145 MG TABLET PO (09:10)
[2023-06-24] MEDS: FINASTERIDE 5 MG TABLET PO (09:10)
[2023-06-24] MEDS: BACLOFEN 10 MG TABLET PO (09:10)
[2023-06-24] MEDS: PANTOPRAZOLE 40 MG TABLET PO (09:10)
[2023-06-24] MEDS: TAMSULOSIN HCL 0.4 MG CAPSULE PO (09:11)
[2023-06-24] MEDS: ASPIRIN 81 MG ENTERIC TABLET PO (09:11)
[2023-06-24] MEDS: ATORVASTATIN 40 MG TABLET 80 MG PO (09:11)
[2023-06-24] MEDS: FLUTICASONE/UMECLIDIN/VILANTER 100-62.5-25 MCG ELLIPTA 1 PUFF INHALATION (09:12)
[2023-06-24 16:00] VITALS: BP 116/55; PULSE 88; RESP 20; TEMP 36.6; O2SAT 95
[2023-06-24 20:29] LABS: Transferrin 197 mg/dL (188-341)
[2023-06-24] MEDS: traZODone HCL 50 MG TABLET 100 MG PO (21:25)
[2023-06-24 23:05] VITALS: BP 122/53; PULSE 70; RESP 17; TEMP 36.4; O2SAT 94
[2023-06-25 08:00] VITALS: BP 130/58; PULSE 72; RESP 18; TEMP 36.4; O2SAT 96
[2023-06-25] MEDS: CELECOXIB 100 MG CAPSULE PO (08:24)
[2023-06-25] MEDS: FLUTICASONE/UMECLIDIN/VILANTER 100-62.5-25 MCG ELLIPTA 1 PUFF INHALATION (09:22)
[2023-06-25] MEDS: SERTRALINE HCL 50 MG TABLET PO (09:23)
[2023-06-25] MEDS: SIMETHICONE 80 MG TAB.CHEW PO (09:23)
[2023-06-25] MEDS: FENOFIBRATE NANOCRYSTALLIZED 145 MG TABLET PO (09:23)
[2023-06-25] MEDS: MULTIVITAMINS THERAPEUTIC TAB (*BKC) 1 TABLET PO (09:23)
[2023-06-25] MEDS: FINASTERIDE 5 MG TABLET PO (09:23)
[2023-06-25] MEDS: CHOLECALCIFEROL 5,000 UNITS TABLET 5000 UNITS PO (09:23)
[2023-06-25] MEDS: buPROPion HCL SR (12 HR) 150 MG TAB PO (09:23)
[2023-06-25] MEDS: PANTOPRAZOLE 40 MG TABLET PO (09:23)
[2023-06-25] MEDS: TAMSULOSIN HCL 0.4 MG CAPSULE PO (09:23)
[2023-06-25] MEDS: guaiFENesin 12 HR 600 MG TABCR PO (09:24)
[2023-06-25] MEDS: ASPIRIN 81 MG ENTERIC TABLET PO (09:24)
[2023-06-25] MEDS: ATORVASTATIN 40 MG TABLET 80 MG PO (09:24)
[2023-06-25] MEDS: BACLOFEN 10 MG TABLET PO (09:24)
[2023-06-25] MEDS: MORPHINE SULFATE (*CRX) 30 MG TABCR PO (09:24)
[2023-06-25] MEDS: FUROSEMIDE 40 MG TABLET PO (09:24)
[2023-06-25] MEDS: LORATADINE 10 MG TABLET PO (09:25)
[2023-06-25] MEDS: LOSARTAN POTASSIUM 50 MG TABLET PO (09:25)
--- NOTE | 2023-06-25 13:03 | PC.NURSE ---
Pt discharged to son's home. Pt is A/ O x 3 with vss. Pt given dischagre instructions regarding medications, fall precautions, follow up PCP appointment and home health. Pt verbalized understanding of instructions. Assisted to the car via WC.
--- NOTE | 2023-07-01 12:36 | PC.NURSE ---
Pt states he received and understood his discharge instructions. Pt states his care was excellent .
== END 2023-06-25 12:35 | disposition home health service (06) | DRG 948 ==
PROVIDERS: Nurse Practitioner; Nurse Practitioner Adult Health; Admitting Provider Internal Medicine; PCP Family Medicine Adolescent Medicine; Visit Provider Internal Medicine
DX: R53.81 Other malaise (principal); B02.29 Other postherpetic nervous system involvement; I50.32 Chronic diastolic (congestive) heart failure; I11.0 Hypertensive heart disease with heart failure; I71.40 Abdominal aortic aneurysm, without rupture, unspecified; I35.0 Nonrheumatic aortic (valve) stenosis; I25.10 Atherosclerotic heart disease of native coronary artery without angina pectoris; I25.5 Ischemic cardiomyopathy; J44.9 Chronic obstructive pulmonary disease, unspecified; D53.9 Nutritional anemia, unspecified; E78.5 Hyperlipidemia, unspecified; K21.9 Gastro-esophageal reflux disease without esophagitis; M17.0 Bilateral primary osteoarthritis of knee; M19.012 Primary osteoarthritis, left shoulder; M19.011 Primary osteoarthritis, right shoulder; M48.061 Spinal stenosis, lumbar region without neurogenic claudication; N40.1 Benign prostatic hyperplasia with lower urinary tract symptoms; R39.12 Poor urinary stream; G25.81 Restless legs syndrome; I25.2 Old myocardial infarction; Z80.0 Family history of malignant neoplasm of digestive organs; Z86.010 Personal history of colon polyps; Z86.12 Personal history of poliomyelitis; Z95.5 Presence of coronary angioplasty implant and graft; Z87.891 Personal history of nicotine dependence
CPT/HCPCS: 36415; 80048; 80053; 82607; 82728; 82746; 83540; 83550; 84466; 85025; 97110; 97161; 97530; 97535; A9270

== ENCOUNTER 2023-09-16 12:38 | Outpatient (CLI) | payer MEDICARE, MEDICAID, SELFPAY ==
[2023-09-16 12:30] VITALS: PULSE 62; O2SAT 93
[2023-09-16 12:35] VITALS: PULSE 88; O2SAT 86
[2023-09-16 12:40] VITALS: PULSE 90; O2SAT 88
[2023-09-16 12:45] VITALS: PULSE 91; O2SAT 90
[2023-09-16 12:55] VITALS: PULSE 65; O2SAT 92
--- NOTE | 2023-09-16 13:08 | HOMEO2EVAL ---
Evaluation was performed at [facility] Home Oxygen Evaluation RC: Home Oxygen (O2) Evaluation Start: 09/16/23 13:07 Freq: Status: Active Protocol: RPE Activity Type Activity Date Activity User E-sign Co-sign Detail Recorded Client Recorded Date Recorded By Document 09/16/23 12:30 DJO [email or web address] 09/16/23 13:08 DJO Document 09/16/23 12:35 DJO [email or web address] 09/16/23 13:08 DJO Document 09/16/23 12:40 DJO [email or web address] 09/16/23 13:08 DJO Document 09/16/23 12:45 [email or web address] [email or web address] 09/16/23 13:08 DJO Document 09/16/23 12:55 [email or web address] [email or web address] 09/16/23 13:08 DJO 09/16/23 09/16/23 09/16/23 12:30 12:35 12:40 Home O2 Evaluation [Oxygen] -Test Phase Resting Exercise Exercise -Oxygen Delivery Room Air Room Air Nasal Cannula -Oxygen Flow Rate (L/min) 2 [Pulse Oximetry] -Pulse Oximetry (90-100 %) 93 86 L 88 L [Pulse Rate] -Pulse Rate (60-100 beats/min) 62 88 90 [Evaluation] -Activity Tolerance [Charges] -Treatment Charges O2 Evaluation - Outpatient 09/16/23 09/16/23 12:45 12:55 Home O2 Evaluation [Oxygen] -Test Phase Exercise Resting -Oxygen Delivery Nasal Cannula Room Air -Oxygen Flow Rate (L/min) 2 [Pulse Oximetry] -Pulse Oximetry (90-100 %) 90 92 [Pulse Rate] -Pulse Rate (60-100 beats/min) 91 65 [Evaluation] -Activity Tolerance Fair [Charges] -Treatment Charges
== END 2023-09-16 12:39 | disposition home or self-care (01) ==
LOC: ANHPFT 12:45
PROVIDERS: PCP Family Medicine Adolescent Medicine; Visit Provider Physician Assistant
DX: J44.9 Chronic obstructive pulmonary disease, unspecified (principal)
CPT/HCPCS: 94618

== ENCOUNTER 2023-12-16 13:27 | Outpatient (CLI) | payer MEDICARE, MEDICAID, SELFPAY ==
--- NOTE | 2023-12-17 14:06 | WPDPFTINT ---
PFT Procedure Performed PFT Procedure Performed Spirometry with Pre/Post Bronchodilator Plethysmography (Lung Vol) Diffusing Cap (DLCO) Flow Vol Loop PFT Interpretation Lung volumes were measured with the body plethysmography method. Lung volumes are unremarkable. Spirometry showed diminished expiratory flow rates and a borderline low FEV 1 to FVC ratio 61%, indicative of obstructive airway disease. Following administration of bronchodilator there was no significant increase in expiratory flow rates. Lung diffusion capacity is severely reduced at 37% predicted. The flow volume loop is consistent with obstructive airway disease. Impression: Mild obstructive airway disease with no response to bronchodilators on this testing. Severely reduced lung diffusion capacity.
== END 2023-12-16 13:28 | disposition home or self-care (01) ==
LOC: ANHPFT 13:28
PROVIDERS: PCP Family Medicine Adolescent Medicine; Visit Provider Physician Assistant
DX: J44.9 Chronic obstructive pulmonary disease, unspecified (principal); R94.2 Abnormal results of pulmonary function studies
CPT/HCPCS: 94060; 94726; 94729

== ENCOUNTER 2024-01-15 12:52 | Outpatient (CLI) | payer MEDICARE, MEDICAID, SELFPAY ==
[2024-01-15 13:00] VITALS: PULSE 63; O2SAT 94
[2024-01-15 13:05] VITALS: PULSE 100; O2SAT 87
[2024-01-15 13:06] VITALS: O2SAT 87
[2024-01-15 13:07] VITALS: PULSE 90; O2SAT 90
[2024-01-15 13:15] VITALS: PULSE 70; O2SAT 94
--- NOTE | 2024-01-15 13:57 | HOMEO2EVAL ---
Evaluation was performed at [facility] Home Oxygen Evaluation RC: Home Oxygen (O2) Evaluation Start: 01/15/24 13:52 Freq: Status: Active Protocol: RPE Activity Type Activity Date Activity User E-sign Co-sign Detail Recorded Client Recorded Date Recorded By Document 01/15/24 13:00 KRISTAL [email or web address] 01/15/24 13:57 KRISTAL Document 01/15/24 13:05 KRISTAL [email or web address] 01/15/24 13:57 KRISTAL Document 01/15/24 13:06 KRISTAL [email or web address] 01/15/24 13:57 KRISTAL Document 01/15/24 13:07 KRISTAL [email or web address] 01/15/24 13:57 KRISTAL Document 01/15/24 13:15 KRISTAL [email or web address] 01/15/24 13:57 KRISTAL 01/15/24 01/15/24 01/15/24 13:00 13:05 13:06 Home O2 Evaluation [Oxygen] -Test Phase Resting Exercise Exercise -Oxygen Delivery Room Air Room Air Nasal Cannula -Oxygen Flow Rate (L/min) 1 [Pulse Oximetry] -Pulse Oximetry (90-100 %) 94 87 L 87 L [Pulse Rate] -Pulse Rate (60-100 beats/min) 63 100 [Exercise] -Ambulation Distance (feet) -Ambulation Distance (meters) [Comments] -Home Oxygen Evaluation Comments [Charges] -Evaluation Charges O2 Evaluation by Pulmonary 01/15/24 01/15/24 13:07 13:15 Home O2 Evaluation [Oxygen] -Test Phase Exercise Resting -Oxygen Delivery Nasal Cannula Room Air -Oxygen Flow Rate (L/min) 2 [Pulse Oximetry] -Pulse Oximetry (90-100 %) 90 94 [Pulse Rate] -Pulse Rate (60-100 beats/min) 90 70 [Exercise] -Ambulation Distance (feet) 400 -Ambulation Distance (meters) 121.91 [Comments] -Home Oxygen Evaluation Comments HOME O2 NEEDED AT 2 L WITH ACTIVITY [Charges] -Evaluation Charges
--- NOTE | 2024-01-15 13:59 | PCRCNOTE ---
FAXED TO OFFICE STAFF
== END 2024-01-15 12:53 | disposition home or self-care (01) ==
LOC: ANHPFT 12:54
PROVIDERS: PCP Family Medicine Adolescent Medicine; Visit Provider Physician Assistant
DX: J44.9 Chronic obstructive pulmonary disease, unspecified (principal)
CPT/HCPCS: 94618

== ENCOUNTER 2024-02-25 14:11 | Inpatient (IN) | payer MEDICARE, MEDICAID, SELFPAY ==
[2024-02-25] VITALS (37 sets, daily range): BP systolic 71–121; BP diastolic 33–66; PULSE 47–89; RESP 12–25; TEMP 36.4–37.1; O2SAT 83–97; BMI 26.7
--- NOTE | ~2024-02-25 | XR_ITS ---
EXAMINATION: XR chest 1V portable Exam Date/Time: 02/28/2024 9:38 CDT HISTORY: F/U PNA Comparison: X-ray chest and CTPA 02/25/2024. RESULT: Lines, tubes, and devices: None. Lungs and pleura: Slightly decreased patchy mid and lower lung airspace disease. Slightly improved r eticulonodular bilateral lower lung opacities and subsegmental consolidation. Cardiomediastinal silhouette: Stable. Other: No acute osseous or upper abdominal finding. IMPRESSION: Improving pulmonary opacities. Reviewed, dictated and finalized at location K.
--- NOTE | ~2024-02-25 | XR_ITS ---
EXAMINATION: XR chest 2V DATE: 02/25/2024 15:20 INDICATION: Shortness of breath TECHNIQUE: frontal and lateral views of the chest were obtained. COMPARISON: Chest radiograph dated 06/13/2023 FINDINGS: Patchy airspace opacities in the bilateral mid and lower lung zones. No pleural effusion or pneumotho rax. Heart size is normal. Moderate thoracic spondylosis with bridging osteophytes at multiple levels consistent with diffuse idiopathic skeletal hyperostosis (DISH). IMPRESSION: 1. Patchy airspace opacities in bilateral mid and lower lung zones which could represent pneumonia, a telectasis, pulmonary edema or some combination thereof. Reviewed, dictated and finalized at location A. IMPRESSION: 1. Patchy airspace opacities in bilateral mid and lower lung zones which could represent pneumonia, atelectasis, pulmonary edema or some combination thereof.
--- NOTE | ~2024-02-25 | CT_ITS ---
EXAMINATION: CTA chest PE protocol DATE: 02/25/2024 19:32 INDICATION: Shortness of breath and productive cough TECHNIQUE: Computed tomography (CT) pulmonary angiogram of the chest was performed with 100 mL Omnipa que-350 intravenous contrast. Additional 3D reconstructions utilizing coronal maximum intensity proje ction (MIP) were performed. Automated exposure control and iterative reconstruction technique were em ployed. The dose-length product was 391.04 mGy-cm. COMPARISON: None FINDINGS: There is scattered respiratory motion which decreases sensitivity in some of the smaller subsegmental pulmonary arteries. No pulmonary embolism identified. There is mild to moderate upper lung predomina nt emphysema. There is patchy consolidation in the right middle and bilateral lower lobes with additi onal regions of tree-in-bud opacity scattered throughout both lungs consistent with multifocal pneumo madhuri. There is associated bronchial wall thickening and mucous plugging in the bilateral lower lobes. Tiny left pleural effusion. No septal line thickening to suggest pulmonary edema. No pneumothorax. Mi ld cardiomegaly. Atherosclerotic coronary artery calcifications. No pericardial effusion. Small slidi ng-type hiatal hernia. Thoracic aorta is normal in caliber with no dissection. There is mediastinal a nd bilateral hilar lymphadenopathy with multiple mildly enlarged lymph nodes which are most likely re active. Splenic calcification consistent with old granulomatous disease. There is heterogeneous enhan cement of the liver likely related to the early arterial phase of contrast with numerous scattered sm all well-defined low-attenuation likely hepatic cysts. Mild thoracic spondylosis bridging osteophytes at multiple levels consistent with diffuse idiopathic skeletal hyperostosis (DISH). IMPRESSION: 1. Although focal pneumonia most prominent in the bilateral lower lobes. No evident pulmonary embolis m. 2. Likely reactive mild mediastinal and bilateral hilar lymphadenopathy. Reviewed, dictated and finalized at location A. IMPRESSION: 1. Although focal pneumonia most prominent in the bilateral lower lobes. No chon dent pulmonary embolism. 2. Likely reactive mild mediastinal and bilateral hilar lymphadenopathy.
--- NOTE | 2024-02-25 14:19 | ECG_ITS ---
Measurements Intervals [place] Rate: 84 P: 41 MS: 184 QRS: -27 QRSD: 103 T: 46 QT: 375 QTc: 444 Interpretive Statements SINUS RHYTHM WITH OCCASIONAL VENTRICULAR PREMATURE COMPLEXES POSSIBLE LEFT ATRIAL ENLARGEMENT [-0.1mV P WAVE IN V1/V2] INCOMPLETE RIGHT BUNDLE BRANCH BLOCK [90+ ms QRS DURATION, TERMINAL R IN V1/V2, 40+ ms S IN I/aVL/V4/V5/V6] POSSIBLE INFERIOR MYOCARDIAL INFARCTION , PROBABLY OLD [30 ms Q WAVE IN II/aVF] ABNORMAL ECG COMPARED TO ECG 06/13/2023 08:00:28 NO SIGNIFICANT CHANGES Electronically Signed On 02-26-2024 7:36:36 CDT by Salas Clemons M.D.
[2024-02-25 14:46] LABS: Basophils Percent Auto 0.2 % (0.2-1.2); Eosinophils Absolute Auto 0.1 K/mm3 (0-0.3); Eosinophils Percent Auto 0.6 % (0-4.4); Hematocrit 38.1 % (42.0-52.0); Hemoglobin 12.2 g/dL (14.0-18.0); Immature Granulocyte Percent A 0.6 % (0-0.5); Lymphocytes Absolute Auto 0.95 K/mm3 (0.9-3.2); Mean Corpuscular Hemoglobin 30.7 pg (26-34); Mean Corpuscular Volume 95.7 fl (80-100); Monocytes Absolute Auto 0.6 K/mm3 (0.1-0.6); Monocytes Percent Auto 3.9 % (2.6-8.5); Neutrophils Absolute Auto 13.9 K/mm3 (1.3-6.7); Neutrophils Percent Auto 88.7 % (45.5-73.1); Platelet Count Result 222 k/mm3 (150-375); Red Blood Count 3.98 M/mm3 (4.6-6.20); Red Cell Distribution Width 15.1 % (11.5-14.5); White Blood Count 15.7 K/mm3 (4.5-10.0)
[2024-02-25 14:55] LABS: Lactic Acid Reflex 0.9 mmol/L (0.7-2.0)
[2024-02-25 15:05] LABS: Alveolar/Arterial O2 Gradient 119.8 mmHg; Base Excess ABG 0.1 mEq/l (+/-2.0); Device NASAL CANNULA; Fractional Inspired Oxygen 32 %; HCO3 ABG 23.7 mEq/l (22.0-26.0); Modified Allen's Test Pass; Oxygen Content ABG 16.7 %vol (16.0-22.0); Oxygen Saturation ABG 94.1 % (95.0-100.0); PCO2 ABG 35.5 mmHg (35.0-45.0); PO2 ABG 66.8 mmHg (80.0-100.0); PO2 FiO2 Ratio Arterial Blood 2.09 %; Site Drawn RIGHT RADIAL; pH ABG 7.443 (7.350-7.450)
[2024-02-25 15:06] LABS: Alanine Aminotransferase 20 U/L (6-50); Albumin Level 3.3 g/dL (3.5-5.1); Alkaline Phosphatase 92 U/L (38-126); Anion Gap 5 mmol/L (4-12); Aspartate Amino Transferase 30 U/L (17-59); Bilirubin,Total 0.9 mg/dL (0.2-1.3); Blood Urea Nitrogen 46 mg/dL (9-20); Carbon Dioxide 25 mmol/L (22-30); Chloride 104 mmol/L (98-107); Estimated Glomerular Filt Rate 45; Glucose 128 mg/dL (65-110); Potassium 3.8 mmol/L (3.4-5.0); Sodium 134 mmol/L (137-145)
[2024-02-25 15:12] LABS: INR 1.3; Prothrombin Time 16.5 Seconds (11.1-14.7)
[2024-02-25 16:19] LABS: NT Pro B Type Natriuretic Pept 697 pg/mL (19.9-100)
[2024-02-25] MEDS: AZITHROMYCIN 500 MG/NS 250 ML 500 MG/250 ML BAG 250 MG IVPB (16:32)
--- NOTE | 2024-02-25 17:26 | ED.SOB ---
HPI - SOB/Dyspnea General Chief Complaint: Shortness of Breath/Dyspnea Stated Complaint: dyspnea, low O2 Time Seen by Provider: 02/25/24 14:13 History of Present Illness HPI Narrative: Patient is a 78-year-old male who presents ER with increased shortness of breath. Patient typically wears 2 L of nasal cannula at all times. Patient has been short of breath for the last week. He was started on 40 mg of prednisone daily as well as doxycycline daily. He is doing better on 02/18 but became worse yesterday. Today he noticed his oxygen saturation was 80% and his oxygen was turned up to 4 L and EMS called. Per EMS they did briefly have to turn his O2 up to 6 L. patient has no chest pain. He does endorse productive cough of green sputum which is new. Related Data Home Medications Medication Instructions Recorded Confirmed acetaminophen 500 mg tablet 500 mg PO Q6H PRN Pain 03/18/23 02/04/24 (Tylenol Extra Strength) finasteride 5 mg tablet (Proscar) 5 mg PO DAILY 03/18/23 02/04/24 guaifenesin 1,200 mg tablet, 1,200 mg PO 1XD 03/18/23 02/04/24 extended release 12 hr (Mucinex) multivitamin 1 tablet PO DAILY 03/18/23 02/04/24 nitroglycerin 0.3 mg sublingual 0.3 mg sublingual Q5M PRN Chest 03/18/23 02/04/24 tablet Pain cetirizine 10 mg capsule (Zyrtec) 10 mg PO DAILY PRN allergies 06/13/23 02/04/24 Allergies Allergy/AdvReac Type Severity Reaction Status Date / Time clonazepam AdvReac Severe Drowsy Verified 02/04/24 10:49 Review of Systems Review of Systems: All systems reviewed & are unremarkable except as noted in HPI and below Constitutional: Constitutional: Denies chills, Reports fatigue and Denies fever(s) ENT: Reports system reviewed and no additional complaints, except as documented Cardiovascular: Cardiovascular: Reports no additional cardiovascular complaints Respiratory: Respiratory: Reports chest congestion, Reports cough, Reports dyspnea and Denies wheezing Gastrointestinal: Gastrointestinal: Reports no additional gastrointestinal complaints Genitourinary: Genitourinary: Reports no additional male genitourinary complaints Integumentary/Breasts: Skin/Breast: Reports system reviewed and no additional complaints, except as docu PMFSH Past Medical History Medical History Abdominal aortic aneurysm, without rupture 02/07 CT Accidental clonazepam overdose Acute alteration in mental status SANDI (acute kidney injury) Aortic stenosis Mild - Echo 05/15/2022 Atherosclerotic heart disease of [place] coronary artery without angina pectoris Bilateral primary osteoarthritis of knee CHF (congestive heart failure), NYHA class I EF 45-50% 10/13 Constipation COPD (chronic obstructive pulmonary disease) Family history of colon cancer in father Generalized weakness GERD (gastroesophageal reflux disease) Herpes zoster Herpes zoster encephalitis History of colon polyps History of poliomyelitis History of tobacco use HTN (hypertension) Hx SBO (~05/2007) Hyperlipidemia Ischemic cardiomyopathy Medication administered in error Myoclonus Normal colonoscopy 05/07 NSTEMI (non-ST elevated myocardial infarction) (~08/2019) 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 NSTEMI Other chronic pain Other ill-defined heart diseases Diastolic Dysfunction 10/13 Polio (~1951) Postherpetic neuralgia Primary osteoarthritis, left shoulder Primary osteoarthritis, right shoulder Restless legs syndrome Spinal stenosis, lumbar region without neurogenic claudication Urinary hesitancy Weakness Surgical History Surgical History H/O colonoscopy with polypectomy H/O rotator cuff surgery Bilateral History of bowel resection History of colon resection History of coronary artery stent placement X2 History of mandibular surgery 1986 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 Bone removed from right hip for reconstructive surger
[2024-02-25] MEDS: SODIUM CHLORIDE 0.9% IV 1,000 ML 999 ML IV CONT (17:42)
--- NOTE | 2024-02-25 17:42 | PC.NURSE ---
notified md Dickerson of patient BP 70s/50s after returning from bathroom. patient is alert and oriented x4. sitting in chair. no distress noted.
--- NOTE | 2024-02-25 18:25 | PM.IMHP ---
H&P: HPI History of Present Illness Date/Time: 02/25/24 18:25 Chief Complaint: SOB, Cough, Hypoxia Narrative: 78 y/o M presents here with SOB, cough, hypoxia, and increased O2 requirement with PMH of AAA without rupture, mild aortic stenosis, CAD, CHF, COPD, GERD, herpes zoster, HTN, HLD, ischemic cardiomyopathy, NSTEMI, osteoarthritis, RLS, former smoker (60 years, 1.5-2 PPD), and spinal stenosis in the lumbar region. Patient presented here from home via EMS for further evaluation of shortness of breath, productive cough, hypoxia, and increasing supplemental O2 requirement. Upon EMS arrival, patient's O2 sat was 86% on home 2L of nasal cannula. Patient reported he has been experiencing a cough and shortness of breath intermittently for the past 2 weeks. Later developed chest wall discomfort with deep inspiration. No fever, chills, or body aches. Patient was placed on doxycycline and steroids on 02/16. Symptoms initially improved with abx and steroids, after he completed the courses he began to feel worse again. Denies any fatigue, dizziness, syncope, or leg swelling. Chest discomfort with inspiration has resolved post-nebs, steroids, and abx initiation today. After arrival to the emergency department, patient became hypotensive with a pressure of 77/38. Multiple manual blood pressures taken. Patient asymptomatic. Improved with IV fluids. Initial VS at presentation: 98.7? F, HR 87, RR 25, 110/45, and 86%. ED workup showed: WBC 15.7, mild anemia, sodium 134, creatinine 1.5 with a GFR of 45 (previously 1.42 on 06/21/2023), and BNP 697. CXR showed patchy airspace opacities in bilateral mid and lower lung zones. Review of Systems Review of Systems: All systems reviewed & are unremarkable except as noted in HPI and below [facility] Past Medical History Medical History Abdominal aortic aneurysm, without rupture 02/07 CT Accidental clonazepam overdose Acute alteration in mental status SANDI (acute kidney injury) Aortic stenosis Mild - Echo 05/15/2022 Atherosclerotic heart disease of [place] coronary artery without angina pectoris Bilateral primary osteoarthritis of knee CHF (congestive heart failure), NYHA class I EF 45-50% 10/13 Constipation COPD (chronic obstructive pulmonary disease) Family history of colon cancer in father Generalized weakness GERD (gastroesophageal reflux disease) Herpes zoster Herpes zoster encephalitis History of colon polyps History of poliomyelitis History of tobacco use HTN (hypertension) Hx SBO (~05/2007) Hyperlipidemia Ischemic cardiomyopathy Medication administered in error Myoclonus Normal colonoscopy 05/07 NSTEMI (non-ST elevated myocardial infarction) (~08/2019) 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 NSTEMI Other chronic pain Other ill-defined heart diseases Diastolic Dysfunction 10/13 Polio (~195) Postherpetic neuralgia Primary osteoarthritis, left shoulder Primary osteoarthritis, right shoulder Restless legs syndrome Spinal stenosis, lumbar region without neurogenic claudication Urinary hesitancy Weakness Surgical History Surgical History H/O colonoscopy with polypectomy H/O rotator cuff surgery Bilateral History of bowel resection History of colon resection History of coronary artery stent placement X2 History of mandibular surgery 1986 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 Bone removed from right hip for reconstructive surgery Presence of coronary angioplasty implant and graft S/P tonsillectomy and adenoidectomy Family History Family History Mother Diabetes mellitus Acute myocardial infarction Father COPD (chronic obstructive pulmonary disease) Colon cancer Sibling Colon cancer Lung cancer Acute myocardial infarction COPD (chronic obstructive pulmonary disease) Sibling COPD (chroni
[2024-02-25] MEDS: predniSONE 20 MG TABLET 40 MG PO (18:54)
[2024-02-25] MEDS: SODIUM CHLORIDE 0.9% IV 500 ML 999 ML IV CONT (19:08)
[2024-02-25 19:13] LABS: Base Excess ABG -3.8 mEq/l (+/-2.0); Fractional Inspired Oxygen 36 %; HCO3 ABG 20.5 mEq/l (22.0-26.0); Oxygen Content ABG 16.7 %vol (16.0-22.0); PCO2 ABG 35.1 mmHg (35.0-45.0); PO2 FiO2 Ratio Arterial Blood 1.75 %; Total Hemoglobin 13.3 g/dL (12.0-18.0); pH ABG 7.385 (7.350-7.450)
[2024-02-25 19:14] LABS: Modified Allen's Test Pass; Site Drawn RIGHT RADIAL
[2024-02-25 19:15] LABS: Device NASAL CANNULA
[2024-02-25 19:39] LABS: Influenza A QL RT-PCR Negative (Negative); Influenza B QL RT-PCR Negative (Negative); RSV RNA, RT-PCR Negative (Negative); SARS-CoV-2 RNA PCR Negative (Negative)
[2024-02-25 20:15] LABS: MRSA (PCR) NOT DETECTED (NOT DETECTE)
--- NOTE | 2024-02-25 20:56 | PC.NURSE ---
This patient, Russell Morse, was admitted to IMU Room 207-01. Patient/family oriented to hospital policies and general routines including ID bracelet, bed and alarms, visiting hours, pain management, procedures, bathroom and other care routines, personal items, smoking policy, room service/diet, and visiting hours. Information on how to activate the Rapid Response Team has been discussed. Patient/Family are encouraged to report perceived risks to care and to ask questions if they do not understand what they are told or what they should do.
[2024-02-25] MEDS: IPRATROPIUM 0.5 MG/ALBUTEROL SULFATE 2.5 MG AMPUL.NEB 3 ML INHALATION (21:49)
[2024-02-25 22:32] LABS: Appearance Urine Clear (Clear); Bilirubin Urine Negative (Negative); Blood Urine Negative (Negative); Color Urine Yellow (Yellow); Glucose Urine UA Negative (Negative); Ketones Urine Negative (Negative); Leukocyte Esterase Ur Negative LEU/UL (Negative); Nitrate Urine Negative (Negative); Protein Urine Negative (Negative); Urobilinogen Urine 0.2 mg/dL (<2.0); pH Urine 5.5 (5.0-9.0)
[2024-02-25 22:38] LABS: Add Urine Microscopic? NO
[2024-02-25] MEDS: buPROPion HCL SR (12 HR) 150 MG TAB PO (22:50)
[2024-02-25] MEDS: traZODone HCL 50 MG TABLET 100 MG PO (22:50)
[2024-02-25] MEDS: CEFEPIME 2 GM/NS 50 ML 2 GM/50 ML BAG IVPB (22:51)
[2024-02-25] MEDS: levoFLOXacin 750 MG/D5W 150 ML 750 MG/150 ML BAG 100 MG IVPB (22:51)
[2024-02-26] VITALS (23 sets, daily range): BP systolic 121–147; BP diastolic 45–63; PULSE 62–88; RESP 16–20; TEMP 36–36.6; O2SAT 93–97
[2024-02-26] MEDS: IPRATROPIUM 0.5 MG/ALBUTEROL SULFATE 2.5 MG AMPUL.NEB 3 ML INHALATION ×4 (02:34→20:14)
[2024-02-26 05:08] LABS: Basophils Percent Auto 0.3 % (0.2-1.2); Hematocrit 33.6 % (42.0-52.0); Hemoglobin 10.6 g/dL (14.0-18.0); Immature Granulocyte Absolute 0.12 K/mm3 (0.00-0.031); Immature Granulocyte Percent A 1.5 % (0-0.5); Lymphocytes Absolute Auto 0.46 K/mm3 (0.9-3.2); Lymphocytes Percent Auto 5.9 % (18.3-44.2); Mean Corpuscular HGB Conc 31.5 g/dl (32-36); Mean Corpuscular Hemoglobin 30.5 pg (26-34); Mean Corpuscular Volume 96.8 fl (80-100); Mean Platelet Volume 11.3 fl (7.4-10.4); Monocytes Absolute Auto 0.2 K/mm3 (0.1-0.6); Monocytes Percent Auto 2.5 % (2.6-8.5); Neutrophils Percent Auto 89.8 % (45.5-73.1); Platelet Count Result 180 k/mm3 (150-375); Red Blood Count 3.47 M/mm3 (4.6-6.20); White Blood Count 7.8 K/mm3 (4.5-10.0)
[2024-02-26 05:23] LABS: Alanine Aminotransferase 21 U/L (6-50); Albumin Level 2.9 g/dL (3.5-5.1); Alkaline Phosphatase 93 U/L (38-126); Anion Gap 4 mmol/L (4-12); Aspartate Amino Transferase 27 U/L (17-59); Bilirubin,Total 0.5 mg/dL (0.2-1.3); Blood Urea Nitrogen 35 mg/dL (9-20); Calcium 8.5 mg/dL (8.4-10.2); Carbon Dioxide 26 mmol/L (22-30); Chloride 106 mmol/L (98-107); Estimated CRCL calculation 44 ml/min; Estimated Glomerular Filt Rate 53; Glucose 180 mg/dL (65-110); Potassium 4.1 mmol/L (3.4-5.0); Sodium 136 mmol/L (137-145)
[2024-02-26] MEDS: ACETAMINOPHEN 325 MG TABLET 650 MG PO ×2 (06:45→23:44)
[2024-02-26] MEDS: LINACLOTIDE 145 MCG CAPSULE 290 MCG PO (07:13)
[2024-02-26] MEDS: MORPHINE SULFATE (*CRX) 30 MG TABCR PO (08:28)
[2024-02-26] MEDS: CHOLECALCIFEROL 1,000 UNITS TABLET 5000 UNITS PO (08:28)
[2024-02-26] MEDS: SIMETHICONE 125 MG CHEW TAB PO ×4 (08:28→20:55)
[2024-02-26] MEDS: PANTOPRAZOLE 40 MG TABLET PO (08:29)
[2024-02-26] MEDS: FINASTERIDE 5 MG TABLET PO (08:29)
[2024-02-26] MEDS: buPROPion HCL SR (12 HR) 150 MG TAB PO ×2 (08:29→20:55)
[2024-02-26] MEDS: SERTRALINE HCL 50 MG TABLET PO (08:29)
[2024-02-26] MEDS: guaiFENesin 12 HR 600 MG TABCR 1200 MG PO ×2 (08:29→20:55)
[2024-02-26] MEDS: predniSONE 20 MG TABLET 40 MG PO (08:29)
[2024-02-26] MEDS: FENOFIBRATE 160 MG TABLET PO (08:29)
[2024-02-26] MEDS: ASPIRIN 81 MG ENTERIC TABLET PO (08:30)
[2024-02-26] MEDS: MULTIVITAMINS THERAPEUTIC TAB (*BKC) 1 TABLET PO (08:30)
[2024-02-26] MEDS: ATORVASTATIN 40 MG TABLET 80 MG PO (08:30)
[2024-02-26] MEDS: TAMSULOSIN HCL 0.4 MG CAPSULE PO (08:30)
[2024-02-26] MEDS: FUROSEMIDE 40 MG TABLET PO (08:30)
[2024-02-26] MEDS: CEFEPIME 2 GM/NS 50 ML 2 GM/50 ML BAG IVPB ×2 (09:15→20:54)
--- NOTE | 2024-02-26 09:19 | P.PNIM_ITS ---
Progress Note: A&P Assessment and Plan (1) Acute and chronic respiratory failure: Code(s): J96.20 - Acute and chronic respiratory failure, unspecified whether with hypoxia or hypercapnia Status: Acute (2) Sepsis: Code(s): A41.9 - Sepsis, unspecified organism Status: Acute (3) Pneumonia: Code(s): J18.9 - Pneumonia, unspecified organism Status: Acute (4) COPD with exacerbation: Code(s): J44.1 - Chronic obstructive pulmonary disease with (acute) exacerbation Status: Acute Plan Sepsis without septic shock secondary to CAP pneumonia * IV fluids given in ER for hypotension * reassessment of volume status/tissue perfusion responded well * Cefepime/azithromycin * Sputum culture pending * Monitor lactic acid levels q6hr. 0.9 * Two sets of blood cultures pending * Chest x-ray bilateral pneumonia. * glucose monitoring and control Acute on chronic respiratory failure with hypoxia secondary to pneumonia and COPD exacerbation Pneumonia * Will treat for Gram-negative and Gram-positive bacterial pneumonia pending cultures * Bronchodilators. * Chest x-ray bilateral pneumonia * incentive spirometry while awake. * sputum culture ordered * influenza/COVID/RSV negative * respiratory panel pending * Cefepime/azithromycin pending culture * Mucolytic * supplemental oxygen therapy to maintain oxygen 92% * Smoking cessation counseling done . * steroids initiated for COPD exacerbation * Disease management following GOLD guidelines. * Repeat hospitalization risk evaluation per [facility] * Evaluation from home O2 if saturation less than 88% on room air. * Follow-up with river driver as an outpatient Smoking * smoking cessation education * nicotine patch daily * remove at night * recommend prescription for nicotine patches at discharge HX HTN: hypotensive on admission holding home BP medications will resume as BP tolerates HX BPH: Resumed flomax monitor for retention Code status: Modified/DNI DVT prophylaxis: Lovenox Stress ulcer prophylaxis: Protonix 40 daily PT/OT notes: Pending Disposition: Patient continues mission to IMU for further evaluation and treatment of acute on chronic respiratory failure secondary to pneumonia and COPD exacerbation. PT OT pending however patient plans to discharge back to home with family when medically stable. Time Spent With Patient Time with patient: 15 - 25 minutes Subjective Date/time seen: 02/26/24 09:19 Interval history: Admission: Medical Record 78 y/o M presents here with SOB, cough, hypoxia, and increased O2 requirement with PMH of AAA without rupture, mild aortic stenosis, CAD, CHF, COPD, GERD, herpes zoster, HTN, HLD, ischemic cardiomyopathy, NSTEMI, osteoarthritis, RLS, former smoker (60 years, 1.5-2 PPD), and spinal stenosis in the lumbar region. Patient presented here from home via EMS for further evaluation of shortness of breath, productive cough, hypoxia, and increasing supplemental O2 requirement.? Upon EMS arrival, patient's O2 sat was 86% on home 2L of nasal cannula.? Patient reported he has been experiencing a cough and shortness of breath intermittently for the past 2 weeks. Later developed chest wall discomfort with deep inspiration. No fever, chills, or body aches. Patient was placed on doxycycline and steroids on 02/16. Symptoms initially improved with abx and steroids, after he completed the courses he began to feel worse again. Denies any fatigue, dizziness, syncope, or leg swelling. Chest dis
--- NOTE | 2024-02-26 09:19 | PM.IMPN ---
Progress Note: A&P Assessment and Plan (1) Acute and chronic respiratory failure: Code(s): J96.20 - Acute and chronic respiratory failure, unspecified whether with hypoxia or hypercapnia Status: Acute (2) Sepsis: Code(s): A41.9 - Sepsis, unspecified organism Status: Acute (3) Pneumonia: Code(s): J18.9 - Pneumonia, unspecified organism Status: Acute (4) COPD with exacerbation: Code(s): J44.1 - Chronic obstructive pulmonary disease with (acute) exacerbation Status: Acute Plan Sepsis without septic shock secondary to CAP pneumonia IV fluids given in ER for hypotension reassessment of volume status/tissue perfusion responded well Cefepime/azithromycin Sputum culture pending Monitor lactic acid levels q6hr. 0.9 Two sets of blood cultures pending Chest x-ray bilateral pneumonia. glucose monitoring and control Acute on chronic respiratory failure with hypoxia secondary to pneumonia and COPD exacerbation Pneumonia Will treat for Gram-negative and Gram-positive bacterial pneumonia pending cultures Bronchodilators. Chest x-ray bilateral pneumonia incentive spirometry while awake. sputum culture ordered influenza/COVID/RSV negative respiratory panel pending Cefepime/azithromycin pending culture Mucolytic supplemental oxygen therapy to maintain oxygen 92% Smoking cessation counseling done . steroids initiated for COPD exacerbation Disease management following GOLD guidelines. Repeat hospitalization risk evaluation per [facility] Evaluation from home O2 if saturation less than 88% on room air. Follow-up with human resources advisor as an outpatient Smoking smoking cessation education nicotine patch daily remove at night recommend prescription for nicotine patches at discharge HX HTN: hypotensive on admission holding home BP medications will resume as BP tolerates HX BPH: Resumed flomax monitor for retention Code status: Modified/DNI DVT prophylaxis: Lovenox Stress ulcer prophylaxis: Protonix 40 daily PT/OT notes: Pending Disposition: Patient continues mission to IMU for further evaluation and treatment of acute on chronic respiratory failure secondary to pneumonia and COPD exacerbation. PT OT pending however patient plans to discharge back to home with family when medically stable. Time Spent With Patient Time with patient: 15 - 25 minutes Subjective Date/time seen: 02/26/24 09:19 Interval history: Admission: Medical Record 78 y/o M presents here with SOB, cough, hypoxia, and increased O2 requirement with PMH of AAA without rupture, mild aortic stenosis, CAD, CHF, COPD, GERD, herpes zoster, HTN, HLD, ischemic cardiomyopathy, NSTEMI, osteoarthritis, RLS, former smoker (60 years, 1.5-2 PPD), and spinal stenosis in the lumbar region. Patient presented here from home via EMS for further evaluation of shortness of breath, productive cough, hypoxia, and increasing supplemental O2 requirement.? Upon EMS arrival, patient's O2 sat was 86% on home 2L of nasal cannula.? Patient reported he has been experiencing a cough and shortness of breath intermittently for the past 2 weeks. Later developed chest wall discomfort with deep inspiration. No fever, chills, or body aches. Patient was placed on doxycycline and steroids on 02/16. Symptoms initially improved with abx and steroids, after he completed the courses he began to feel worse again. Denies any fatigue, dizziness, syncope, or leg swelling. Chest discomfort with inspiration has resolved post-nebs, steroids, and abx initiation today.? After arrival to the emergency department, patient became hypotensive with a pressure of 77/38.? Multiple manual blood pressures taken.? Patient asymptomatic.? Improved with IV fluids. Initial VS at presentation:? 98.7? F, HR 87, RR 25, 110/45, and 86%. ED workup showed:? WBC 15.7, mild anemia, sodium 134, creatinine 1.5 with a GFR of 45 (previously
--- NOTE | 2024-02-26 10:29 | PHAR ---
Pharmacy verified home med: * Home Med * Sulindac 200 mg tablet take 1 tablet by mouth twice daily
[2024-02-26 11:09] LABS: Hemoglobin A1C 5.2 % (<5.7)
[2024-02-26] MEDS: AZITHROMYCIN 250 MG TABLET 500 MG PO (12:57)
[2024-02-26] MEDS: FLUTICASONE/UMECLIDIN/VILANTER 100-62.5-25 MCG ELLIPTA 1 PUFF INHALATION (14:02)
[2024-02-26] MEDS: traZODone HCL 50 MG TABLET 100 MG PO (20:55)
[2024-02-26] MEDS: BACLOFEN 10 MG TABLET PO (23:47)
[2024-02-27] VITALS (18 sets, daily range): BP systolic 125–175; BP diastolic 47–60; PULSE 53–88; RESP 16–20; TEMP 36.1–36.8; O2SAT 94–98
[2024-02-27] MEDS: IPRATROPIUM 0.5 MG/ALBUTEROL SULFATE 2.5 MG AMPUL.NEB 3 ML INHALATION ×4 (02:05→20:12)
[2024-02-27 03:58] LABS: Hematocrit 32.5 % (42.0-52.0); Hemoglobin 10.4 g/dL (14.0-18.0); Mean Corpuscular Hemoglobin 30.5 pg (26-34); Mean Corpuscular Volume 95.3 fl (80-100); Mean Platelet Volume 11.1 fl (7.4-10.4); Platelet Count Result 180 k/mm3 (150-375); Red Blood Count 3.41 M/mm3 (4.6-6.20); Red Cell Distribution Width 14.6 % (11.5-14.5)
[2024-02-27 04:17] LABS: Alanine Aminotransferase 27 U/L (6-50); Albumin Level 3.1 g/dL (3.5-5.1); Alkaline Phosphatase 107 U/L (38-126); Anion Gap 3 mmol/L (4-12); Aspartate Amino Transferase 37 U/L (17-59); Bilirubin,Total 0.5 mg/dL (0.2-1.3); Blood Urea Nitrogen 30 mg/dL (9-20); Carbon Dioxide 28 mmol/L (22-30); Chloride 104 mmol/L (98-107); Estimated CRCL calculation 41 ml/min; Estimated Glomerular Filt Rate 49; Glucose 153 mg/dL (65-110); Potassium 3.9 mmol/L (3.4-5.0); Sodium 135 mmol/L (137-145)
[2024-02-27] MEDS: LINACLOTIDE 145 MCG CAPSULE 290 MCG PO (06:47)
[2024-02-27] MEDS: FLUTICASONE/UMECLIDIN/VILANTER 100-62.5-25 MCG ELLIPTA 1 PUFF INHALATION (07:55)
[2024-02-27] MEDS: TAMSULOSIN HCL 0.4 MG CAPSULE PO (09:11)
[2024-02-27] MEDS: ROFLUMILAST 250 MCG TABLET PO (09:11)
[2024-02-27] MEDS: PANTOPRAZOLE 40 MG TABLET PO (09:11)
[2024-02-27] MEDS: ENOXAPARIN 40 MG/0.4 ML SYRINGE SUB-Q (09:11)
[2024-02-27] MEDS: CHOLECALCIFEROL 1,000 UNITS TABLET 5000 UNITS PO (09:11)
[2024-02-27] MEDS: buPROPion HCL SR (12 HR) 150 MG TAB PO ×2 (09:11→20:55)
[2024-02-27] MEDS: predniSONE 20 MG TABLET 40 MG PO (09:11)
[2024-02-27] MEDS: guaiFENesin 12 HR 600 MG TABCR 1200 MG PO ×2 (09:11→20:54)
[2024-02-27] MEDS: MULTIVITAMINS THERAPEUTIC TAB (*BKC) 1 TABLET PO (09:11)
[2024-02-27] MEDS: ATORVASTATIN 40 MG TABLET 80 MG PO (09:11)
[2024-02-27] MEDS: SERTRALINE HCL 50 MG TABLET PO (09:12)
[2024-02-27] MEDS: MORPHINE SULFATE (*CRX) 30 MG TABCR PO (09:12)
[2024-02-27] MEDS: FINASTERIDE 5 MG TABLET PO (09:12)
[2024-02-27] MEDS: AZITHROMYCIN 250 MG TABLET 500 MG PO (09:12)
[2024-02-27] MEDS: FENOFIBRATE 160 MG TABLET PO (09:12)
[2024-02-27] MEDS: FUROSEMIDE 40 MG TABLET PO (09:12)
[2024-02-27] MEDS: SIMETHICONE 125 MG CHEW TAB PO ×4 (09:12→20:55)
[2024-02-27] MEDS: ASPIRIN 81 MG ENTERIC TABLET PO (09:12)
[2024-02-27] MEDS: polyethylene glycoL 3350 17 GM POWD.PACK PO (12:40)
[2024-02-27] MEDS: CEFEPIME 2 GM/NS 50 ML 2 GM/50 ML BAG IVPB ×2 (12:40→20:53)
[2024-02-27] MEDS: carvediloL 12.5 MG TABLET PO (17:05)
[2024-02-27] MEDS: ACETAMINOPHEN 325 MG TABLET 650 MG PO (20:54)
[2024-02-27] MEDS: traZODone HCL 50 MG TABLET 100 MG PO (20:55)
[2024-02-28] VITALS (21 sets, daily range): BP systolic 112–173; BP diastolic 49–77; PULSE 45–85; RESP 16–18; TEMP 36.4–36.8; O2SAT 94–96
[2024-02-28] MEDS: IPRATROPIUM 0.5 MG/ALBUTEROL SULFATE 2.5 MG AMPUL.NEB 3 ML INHALATION ×4 (02:59→20:00)
[2024-02-28 04:32] LABS: Hemoglobin 10.8 g/dL (14.0-18.0); Mean Corpuscular HGB Conc 31.8 g/dl (32-36); Mean Corpuscular Hemoglobin 30.5 pg (26-34); Mean Platelet Volume 10.9 fl (7.4-10.4); Platelet Count Result 183 k/mm3 (150-375); Red Blood Count 3.54 M/mm3 (4.6-6.20); Red Cell Distribution Width 14.5 % (11.5-14.5); White Blood Count 8.2 K/mm3 (4.5-10.0)
[2024-02-28 04:45] LABS: Alanine Aminotransferase 31 U/L (6-50); Albumin Level 3.1 g/dL (3.5-5.1); Alkaline Phosphatase 109 U/L (38-126); Anion Gap -1 mmol/L (4-12); Aspartate Amino Transferase 36 U/L (17-59); Bilirubin,Total 0.4 mg/dL (0.2-1.3); Blood Urea Nitrogen 27 mg/dL (9-20); Calcium 9.1 mg/dL (8.4-10.2); Carbon Dioxide 33 mmol/L (22-30); Chloride 103 mmol/L (98-107); Estimated CRCL calculation 52 ml/min; Estimated Glomerular Filt Rate > 60; Glucose 115 mg/dL (65-110); Potassium 4.1 mmol/L (3.4-5.0); Sodium 135 mmol/L (137-145)
[2024-02-28] MEDS: LINACLOTIDE 145 MCG CAPSULE 290 MCG PO (06:18)
[2024-02-28] MEDS: FLUTICASONE/UMECLIDIN/VILANTER 100-62.5-25 MCG ELLIPTA 1 PUFF INHALATION (07:31)
--- NOTE | 2024-02-28 08:22 | P.PNIM_ITS ---
Progress Note: A&P Assessment and Plan (1) Acute and chronic respiratory failure: Code(s): J96.20 - Acute and chronic respiratory failure, unspecified whether with hypoxia or hypercapnia Status: Acute (2) Sepsis: Code(s): A41.9 - Sepsis, unspecified organism Status: Acute (3) Pneumonia: Code(s): J18.9 - Pneumonia, unspecified organism Status: Acute (4) COPD with exacerbation: Code(s): J44.1 - Chronic obstructive pulmonary disease with (acute) exacerbation Status: Acute Plan Sepsis without septic shock secondary to CAP pneumonia * IV fluids given in ER for hypotension * reassessment of volume status/tissue perfusion responded well * Cefepime/azithromycin * Sputum culture pending * Monitor lactic acid levels q6hr. 0.9 * Two sets of blood cultures pending * Chest x-ray bilateral pneumonia. * glucose monitoring and control Acute on chronic respiratory failure with hypoxia secondary to pneumonia and COPD exacerbation Pneumonia * Will treat for Gram-negative and Gram-positive bacterial pneumonia pending cultures * Bronchodilators. * Chest x-ray bilateral pneumonia * incentive spirometry while awake. * sputum culture haemophilus influenzae * influenza/COVID/RSV negative * respiratory panel pending * Cefepime/azithromycin pending culture * Mucolytic * supplemental oxygen therapy to maintain oxygen 92% * Smoking cessation counseling done . * steroids initiated for COPD exacerbation * Disease management following GOLD guidelines. * Repeat hospitalization risk evaluation per [facility] * Evaluation from home O2 if saturation less than 88% on room air. * Follow-up with center punch operator as an outpatient 02/27: * On 2L home oxygen * F/U CXR pending Smoking * smoking cessation education * nicotine patch daily * remove at night * recommend prescription for nicotine patches at discharge HX HTN: hypotensive on admission holding home BP medications will resume as BP tolerates HX BPH: Resumed flomax monitor for retention Code status: Modified/DNI DVT prophylaxis: Lovenox Stress ulcer prophylaxis: Protonix 40 daily PT/OT notes: Pending Disposition: Patient continues mission to IMU for further evaluation and treatment of acute on chronic respiratory failure secondary to pneumonia and COPD exacerbation. PT OT pending however patient plans to discharge back to home with family when medically stable. Time Spent With Patient Time with patient: 15 - 25 minutes Subjective Date/time seen: 02/28/24 08:22 Interval history: Admission: Medical Record 78 y/o M presents here with SOB, cough, hypoxia, and increased O2 requirement with PMH of AAA without rupture, mild aortic stenosis, CAD, CHF, COPD, GERD, herpes zoster, HTN, HLD, ischemic cardiomyopathy, NSTEMI, osteoarthritis, RLS, former smoker (60 years, 1.5-2 PPD), and spinal stenosis in the lumbar region. Patient presented here from home via EMS for further evaluation of shortness of breath, productive cough, hypoxia, and increasing supplemental O2 requirement.? Upon EMS arrival, patient's O2 sat was 86% on home 2L of nasal cannula.? Patient reported he has been experiencing a cough and shortness of breath intermittently for the past 2 weeks. Later developed chest wall discomfort with deep inspiration. No fever, chills, or body aches. Patient was placed on doxycycline and steroids on 02/16. Symptoms initially improved with abx and steroids, after he completed the courses he began to feel worse agai
--- NOTE | 2024-02-28 08:22 | PM.IMPN ---
Progress Note: A&P Assessment and Plan (1) Acute and chronic respiratory failure: Code(s): J96.20 - Acute and chronic respiratory failure, unspecified whether with hypoxia or hypercapnia Status: Acute (2) Sepsis: Code(s): A41.9 - Sepsis, unspecified organism Status: Acute (3) Pneumonia: Code(s): J18.9 - Pneumonia, unspecified organism Status: Acute (4) COPD with exacerbation: Code(s): J44.1 - Chronic obstructive pulmonary disease with (acute) exacerbation Status: Acute Plan Sepsis without septic shock secondary to CAP pneumonia IV fluids given in ER for hypotension reassessment of volume status/tissue perfusion responded well Cefepime/azithromycin Sputum culture pending Monitor lactic acid levels q6hr. 0.9 Two sets of blood cultures pending Chest x-ray bilateral pneumonia. glucose monitoring and control Acute on chronic respiratory failure with hypoxia secondary to pneumonia and COPD exacerbation Pneumonia Will treat for Gram-negative and Gram-positive bacterial pneumonia pending cultures Bronchodilators. Chest x-ray bilateral pneumonia incentive spirometry while awake. sputum culture haemophilus influenzae influenza/COVID/RSV negative respiratory panel pending Cefepime/azithromycin pending culture Mucolytic supplemental oxygen therapy to maintain oxygen 92% Smoking cessation counseling done . steroids initiated for COPD exacerbation Disease management following GOLD guidelines. Repeat hospitalization risk evaluation per [facility] Evaluation from home O2 if saturation less than 88% on room air. Follow-up with dock boss as an outpatient 02/27: On 2L home oxygen F/U CXR pending Smoking smoking cessation education nicotine patch daily remove at night recommend prescription for nicotine patches at discharge HX HTN: hypotensive on admission holding home BP medications will resume as BP tolerates HX BPH: Resumed flomax monitor for retention Code status: Modified/DNI DVT prophylaxis: Lovenox Stress ulcer prophylaxis: Protonix 40 daily PT/OT notes: Pending Disposition: Patient continues mission to IMU for further evaluation and treatment of acute on chronic respiratory failure secondary to pneumonia and COPD exacerbation. PT OT pending however patient plans to discharge back to home with family when medically stable. Time Spent With Patient Time with patient: 15 - 25 minutes Subjective Date/time seen: 02/28/24 08:22 Interval history: Admission: Medical Record 78 y/o M presents here with SOB, cough, hypoxia, and increased O2 requirement with PMH of AAA without rupture, mild aortic stenosis, CAD, CHF, COPD, GERD, herpes zoster, HTN, HLD, ischemic cardiomyopathy, NSTEMI, osteoarthritis, RLS, former smoker (60 years, 1.5-2 PPD), and spinal stenosis in the lumbar region. Patient presented here from home via EMS for further evaluation of shortness of breath, productive cough, hypoxia, and increasing supplemental O2 requirement.? Upon EMS arrival, patient's O2 sat was 86% on home 2L of nasal cannula.? Patient reported he has been experiencing a cough and shortness of breath intermittently for the past 2 weeks. Later developed chest wall discomfort with deep inspiration. No fever, chills, or body aches. Patient was placed on doxycycline and steroids on 02/16. Symptoms initially improved with abx and steroids, after he completed the courses he began to feel worse again. Denies any fatigue, dizziness, syncope, or leg swelling. Chest discomfort with inspiration has resolved post-nebs, steroids, and abx initiation today.? After arrival to the emergency department, patient became hypotensive with a pressure of 77/38.? Multiple manual blood pressures taken.? Patient asymptomatic.? Improved with IV fluids. Initial VS at presentation:? 98.7? F, HR 87, RR 25, 110/45, and 86%. ED workup showed:? WBC 15.7, mild anem
[2024-02-28] MEDS: CHOLECALCIFEROL 1,000 UNITS TABLET 5000 UNITS PO (09:42)
[2024-02-28] MEDS: ASPIRIN 81 MG ENTERIC TABLET PO (09:43)
[2024-02-28] MEDS: FINASTERIDE 5 MG TABLET PO (09:43)
[2024-02-28] MEDS: ROFLUMILAST 250 MCG TABLET PO (09:43)
[2024-02-28] MEDS: CEFEPIME 2 GM/NS 50 ML 2 GM/50 ML BAG IVPB ×2 (09:43→20:11)
[2024-02-28] MEDS: ATORVASTATIN 40 MG TABLET 80 MG PO (09:43)
[2024-02-28] MEDS: buPROPion HCL SR (12 HR) 150 MG TAB PO ×2 (09:43→20:15)
[2024-02-28] MEDS: predniSONE 20 MG TABLET 40 MG PO (09:43)
[2024-02-28] MEDS: SIMETHICONE 125 MG CHEW TAB PO ×4 (09:43→20:15)
[2024-02-28] MEDS: AZITHROMYCIN 250 MG TABLET 500 MG PO (09:43)
[2024-02-28] MEDS: MORPHINE SULFATE (*CRX) 30 MG TABCR PO (09:44)
[2024-02-28] MEDS: SERTRALINE HCL 50 MG TABLET PO (09:44)
[2024-02-28] MEDS: PANTOPRAZOLE 40 MG TABLET PO (09:44)
[2024-02-28] MEDS: guaiFENesin 12 HR 600 MG TABCR 1200 MG PO ×2 (09:44→20:15)
[2024-02-28] MEDS: FUROSEMIDE 40 MG TABLET PO (09:44)
[2024-02-28] MEDS: TAMSULOSIN HCL 0.4 MG CAPSULE PO (09:44)
[2024-02-28] MEDS: carvediloL 12.5 MG TABLET PO ×2 (09:44→17:54)
[2024-02-28] MEDS: FENOFIBRATE 160 MG TABLET PO (09:44)
[2024-02-28] MEDS: ENOXAPARIN 40 MG/0.4 ML SYRINGE SUB-Q (09:44)
[2024-02-28] MEDS: MULTIVITAMINS THERAPEUTIC TAB (*BKC) 1 TABLET PO (09:44)
[2024-02-28] MEDS: ACETAMINOPHEN 325 MG TABLET 650 MG PO (13:33)
--- NOTE | 2024-02-28 21:29 | PC.NURSE ---
KENar faxed previously to [address] [place] [address], report called to [facility] RN. Patient transferring via wheel chair with boot and all other belongings. No change in assessment from 8pm. Patient called his son and notified him of transfer.
--- NOTE | 2024-02-28 21:46 | PC.NURSE ---
Transfer received from IMU 207 to 2 Medical room 259; Report received from MARJAN Mixon.
[2024-02-28] MEDS: traZODone HCL 50 MG TABLET 100 MG PO (21:51)
[2024-02-28] MEDS: BACLOFEN 10 MG TABLET PO (21:51)
[2024-02-29] VITALS (14 sets, daily range): BP systolic 129–151; BP diastolic 57–60; PULSE 56–74; RESP 16–20; TEMP 36.6–36.8; O2SAT 94–98
[2024-02-29] MEDS: IPRATROPIUM 0.5 MG/ALBUTEROL SULFATE 2.5 MG AMPUL.NEB 3 ML INHALATION ×3 (02:45→13:17)
[2024-02-29 05:41] LABS: Hematocrit 34.7 % (42.0-52.0); Hemoglobin 10.9 g/dL (14.0-18.0); Mean Corpuscular HGB Conc 31.4 g/dl (32-36); Mean Corpuscular Hemoglobin 30.4 pg (26-34); Mean Corpuscular Volume 96.7 fl (80-100); Mean Platelet Volume 10.8 fl (7.4-10.4); Platelet Count Result 212 k/mm3 (150-375); Red Blood Count 3.59 M/mm3 (4.6-6.20); Red Cell Distribution Width 14.6 % (11.5-14.5); White Blood Count 9.1 K/mm3 (4.5-10.0)
[2024-02-29] MEDS: LINACLOTIDE 145 MCG CAPSULE 290 MCG PO (05:57)
[2024-02-29 06:00] LABS: Alanine Aminotransferase 30 U/L (6-50); Albumin Level 3.1 g/dL (3.5-5.1); Alkaline Phosphatase 113 U/L (38-126); Anion Gap 1 mmol/L (4-12); Aspartate Amino Transferase 29 U/L (17-59); Bilirubin,Total 0.4 mg/dL (0.2-1.3); Blood Urea Nitrogen 31 mg/dL (9-20); Carbon Dioxide 32 mmol/L (22-30); Chloride 101 mmol/L (98-107); Estimated CRCL calculation 47 ml/min; Estimated Glomerular Filt Rate 58; Glucose 115 mg/dL (65-110); Sodium 134 mmol/L (137-145)
[2024-02-29] MEDS: FINASTERIDE 5 MG TABLET PO (08:14)
[2024-02-29] MEDS: predniSONE 20 MG TABLET 40 MG PO (08:14)
[2024-02-29] MEDS: CHOLECALCIFEROL 1,000 UNITS TABLET 5000 UNITS PO (08:15)
[2024-02-29] MEDS: FUROSEMIDE 40 MG TABLET PO (08:15)
[2024-02-29] MEDS: TAMSULOSIN HCL 0.4 MG CAPSULE PO (08:15)
[2024-02-29] MEDS: buPROPion HCL SR (12 HR) 150 MG TAB PO (08:15)
[2024-02-29] MEDS: carvediloL 12.5 MG TABLET PO (08:15)
[2024-02-29] MEDS: ACETAMINOPHEN 325 MG TABLET 650 MG PO (08:16)
[2024-02-29] MEDS: SIMETHICONE 125 MG CHEW TAB PO ×2 (08:17→12:28)
[2024-02-29] MEDS: AZITHROMYCIN 250 MG TABLET 500 MG PO (08:17)
[2024-02-29] MEDS: PANTOPRAZOLE 40 MG TABLET PO (08:17)
[2024-02-29] MEDS: ASPIRIN 81 MG ENTERIC TABLET PO (08:17)
[2024-02-29] MEDS: MORPHINE SULFATE (*CRX) 30 MG TABCR PO (08:17)
[2024-02-29] MEDS: ATORVASTATIN 40 MG TABLET 80 MG PO (08:17)
[2024-02-29] MEDS: MULTIVITAMINS THERAPEUTIC TAB (*BKC) 1 TABLET PO (08:17)
[2024-02-29] MEDS: guaiFENesin 12 HR 600 MG TABCR 1200 MG PO (08:17)
[2024-02-29] MEDS: FENOFIBRATE 160 MG TABLET PO (08:18)
[2024-02-29] MEDS: ENOXAPARIN 40 MG/0.4 ML SYRINGE SUB-Q (08:18)
[2024-02-29] MEDS: SERTRALINE HCL 50 MG TABLET PO (08:18)
[2024-02-29] MEDS: CEFEPIME 2 GM/NS 50 ML 2 GM/50 ML BAG IVPB (08:19)
[2024-02-29] MEDS: ROFLUMILAST 250 MCG TABLET PO (08:54)
[2024-02-29] MEDS: FLUTICASONE/UMECLIDIN/VILANTER 100-62.5-25 MCG ELLIPTA 1 PUFF INHALATION (09:34)
--- NOTE | 2024-02-29 13:16 | P.DS_ITS ---
DS: Admitting Diagnosis Discharge Date 02/29/2024 Admitting Diagnosis Community acquired bacterial Pneumonia DS: Discharge Diagnosis Discharge Diagnosis (1) Acute and chronic respiratory failure: Code(s): J96.20 - Acute and chronic respiratory failure, unspecified whether with hypoxia or hypercapnia Status: Acute (2) Sepsis: Code(s): A41.9 - Sepsis, unspecified organism Status: Acute (3) Pneumonia: Code(s): J18.9 - Pneumonia, unspecified organism Status: Acute (4) COPD with exacerbation: Code(s): J44.1 - Chronic obstructive pulmonary disease with (acute) exacerbation Status: Acute Plan Sepsis without septic shock secondary to CAP pneumonia * IV fluids given in ER for hypotension * reassessment of volume status/tissue perfusion responded well * Cefepime/azithromycin * Sputum culture pending * Monitor lactic acid levels q6hr. 0.9 * Two sets of blood cultures pending * Chest x-ray bilateral pneumonia. * glucose monitoring and control Acute on chronic respiratory failure with hypoxia secondary to pneumonia and COPD exacerbation Pneumonia * Will treat for Gram-negative and Gram-positive bacterial pneumonia pending cultures * Bronchodilators. * Chest x-ray bilateral pneumonia * incentive spirometry while awake. * sputum culture haemophilus influenzae * influenza/COVID/RSV negative * respiratory panel pending * Cefepime/azithromycin pending culture * Mucolytic * supplemental oxygen therapy to maintain oxygen 92% * Smoking cessation counseling done . * steroids initiated for COPD exacerbation * Disease management following GOLD guidelines. * Repeat hospitalization risk evaluation per [facility] * Evaluation from home O2 if saturation less than 88% on room air. * Follow-up with sql server dba developer as an outpatient 02/27: * On 2L home oxygen * F/U CXR pending Smoking * smoking cessation education * nicotine patch daily * remove at night * recommend prescription for nicotine patches at discharge HX HTN: hypotensive on admission holding home BP medications will resume as BP tolerates HX BPH: Resumed flomax monitor for retention Disposition: Patient discharged to home in his previous home O2. DS: Summary Hospital Course Reason for hospitalization: Community acquired bacterial Pneumonia Hospital Course: Admission: Medical Record 78 y/o M presents here with SOB, cough, hypoxia, and increased O2 requirement with PMH of AAA without rupture, mild aortic stenosis, CAD, CHF, COPD, GERD, herpes zoster, HTN, HLD, ischemic cardiomyopathy, NSTEMI, osteoarthritis, RLS, former smoker (60 years, 1.5-2 PPD), and spinal stenosis in the lumbar region. Patient presented here from home via EMS for further evaluation of shortness of breath, productive cough, hypoxia, and increasing supplemental O2 requirement.? Upon EMS arrival, patient's O2 sat was 86% on home 2L of nasal cannula.? Patient reported he has been experiencing a cough and shortness of breath intermittently for the past 2 weeks. Later developed chest wall discomfort with deep inspiration. No fever, chills, or body aches. Patient was placed on doxycycline and steroids on 02/16. Symptoms initially improved with abx and steroids, after he completed the courses he began to feel worse again. Denies any fatigue, dizziness, syncope, or leg swelling. Chest discomfort with inspiration has resolved post-nebs, steroids, and abx initiation today.? After arrival to the emergency department, patient became hypo
--- NOTE | 2024-02-29 13:16 | PM.DS ---
DS: Admitting Diagnosis Discharge Date 02/29/2024 Admitting Diagnosis Community acquired bacterial Pneumonia DS: Discharge Diagnosis Discharge Diagnosis (1) Acute and chronic respiratory failure: Code(s): J96.20 - Acute and chronic respiratory failure, unspecified whether with hypoxia or hypercapnia Status: Acute (2) Sepsis: Code(s): A41.9 - Sepsis, unspecified organism Status: Acute (3) Pneumonia: Code(s): J18.9 - Pneumonia, unspecified organism Status: Acute (4) COPD with exacerbation: Code(s): J44.1 - Chronic obstructive pulmonary disease with (acute) exacerbation Status: Acute Plan Sepsis without septic shock secondary to CAP pneumonia IV fluids given in ER for hypotension reassessment of volume status/tissue perfusion responded well Cefepime/azithromycin Sputum culture pending Monitor lactic acid levels q6hr. 0.9 Two sets of blood cultures pending Chest x-ray bilateral pneumonia. glucose monitoring and control Acute on chronic respiratory failure with hypoxia secondary to pneumonia and COPD exacerbation Pneumonia Will treat for Gram-negative and Gram-positive bacterial pneumonia pending cultures Bronchodilators. Chest x-ray bilateral pneumonia incentive spirometry while awake. sputum culture haemophilus influenzae influenza/COVID/RSV negative respiratory panel pending Cefepime/azithromycin pending culture Mucolytic supplemental oxygen therapy to maintain oxygen 92% Smoking cessation counseling done . steroids initiated for COPD exacerbation Disease management following GOLD guidelines. Repeat hospitalization risk evaluation per [facility] Evaluation from home O2 if saturation less than 88% on room air. Follow-up with burlapper as an outpatient 02/27: On 2L home oxygen F/U CXR pending Smoking smoking cessation education nicotine patch daily remove at night recommend prescription for nicotine patches at discharge HX HTN: hypotensive on admission holding home BP medications will resume as BP tolerates HX BPH: Resumed flomax monitor for retention Disposition: Patient discharged to home in his previous home O2. DS: Summary Hospital Course Reason for hospitalization: Community acquired bacterial Pneumonia Hospital Course: Admission: Medical Record 78 y/o M presents here with SOB, cough, hypoxia, and increased O2 requirement with PMH of AAA without rupture, mild aortic stenosis, CAD, CHF, COPD, GERD, herpes zoster, HTN, HLD, ischemic cardiomyopathy, NSTEMI, osteoarthritis, RLS, former smoker (60 years, 1.5-2 PPD), and spinal stenosis in the lumbar region. Patient presented here from home via EMS for further evaluation of shortness of breath, productive cough, hypoxia, and increasing supplemental O2 requirement.? Upon EMS arrival, patient's O2 sat was 86% on home 2L of nasal cannula.? Patient reported he has been experiencing a cough and shortness of breath intermittently for the past 2 weeks. Later developed chest wall discomfort with deep inspiration. No fever, chills, or body aches. Patient was placed on doxycycline and steroids on 02/16. Symptoms initially improved with abx and steroids, after he completed the courses he began to feel worse again. Denies any fatigue, dizziness, syncope, or leg swelling. Chest discomfort with inspiration has resolved post-nebs, steroids, and abx initiation today.? After arrival to the emergency department, patient became hypotensive with a pressure of 77/38.? Multiple manual blood pressures taken.? Patient asymptomatic.? Improved with IV fluids. Initial VS at presentation:? 98.7? F, HR 87, RR 25, 110/45, and 86%. ED workup showed:? WBC 15.7, mild anemia, sodium 134, creatinine 1.5 with a GFR of 45 (previously 1.42 on 06/21/2023), and BNP 697.? CXR showed patchy airspace opacities in bilateral mid and lower lung zones. 5: Patient sitting on the side of the bed
[2024-02-29 21:44] LABS: Pneumococcal Antigen Urine Not Detected (Not Detected)
[2024-03-01 03:28] LABS: Legionella pneumophila Ag Ur Not Detected (Not Detected)
== END 2024-02-29 14:40 | disposition home or self-care (01) | DRG 871 ==
LOC: ANHED 19:06 → ANHIMU 20:10 → ANH2MED 02-29 08:47 → ANHIMU 03-02 11:29
PROVIDERS: Student in an Organized Health Care Education/Training Program; Admitting Provider Hospitalist; Emergency Provider Emergency Medicine; PCP Family Medicine Adolescent Medicine; Visit Provider Nurse Practitioner Family
DX: A41.9 Sepsis, unspecified organism (principal); J14 Pneumonia due to Hemophilus influenzae; J96.21 Acute and chronic respiratory failure with hypoxia; J44.0 Chronic obstructive pulmonary disease with (acute) lower respiratory infection; J44.1 Chronic obstructive pulmonary disease with (acute) exacerbation; I11.0 Hypertensive heart disease with heart failure; I50.9 Heart failure, unspecified; I71.40 Abdominal aortic aneurysm, without rupture, unspecified; I35.0 Nonrheumatic aortic (valve) stenosis; I25.10 Atherosclerotic heart disease of native coronary artery without angina pectoris; I25.5 Ischemic cardiomyopathy; I95.9 Hypotension, unspecified; E78.5 Hyperlipidemia, unspecified; K21.9 Gastro-esophageal reflux disease without esophagitis; M19.012 Primary osteoarthritis, left shoulder; M17.0 Bilateral primary osteoarthritis of knee; M19.011 Primary osteoarthritis, right shoulder; M48.061 Spinal stenosis, lumbar region without neurogenic claudication; G25.81 Restless legs syndrome; Z20.822 Contact with and (suspected) exposure to COVID-19; I25.2 Old myocardial infarction; Z99.81 Dependence on supplemental oxygen; Z86.12 Personal history of poliomyelitis; Z95.5 Presence of coronary angioplasty implant and graft; Z80.0 Family history of malignant neoplasm of digestive organs; Z86.010 Personal history of colon polyps; Z87.891 Personal history of nicotine dependence; Z79.82 Long term (current) use of aspirin
CPT/HCPCS: 36415; 36600; 71045; 71046; 71275; 80053; 81003; 82805; 83036; 83605; 83880; 85025; 85027; 85610; 85730; 86738; 87040; 87070; 87205; 87449; 87637; 87641; 87899; 93005; 94640; 96365; 96367; 99285; A9270; G0378; J0456; J0692; J0696; J1650; J1956; J7030; J7040; J7512; Q9967

== ENCOUNTER 2024-04-09 21:54 | Observation (INO) | payer MEDICARE, MEDICAID, SELFPAY ==
[2024-04-09] VITALS (10 sets, daily range): BP systolic 112–120; BP diastolic 50; PULSE 76–82; RESP 12–20; TEMP 37.6–37.7; O2SAT 93–99
--- NOTE | ~2024-04-09 | XR_ITS ---
EXAMINATION: XR chest 1V portable DATE: 04/09/2024 22:35 INDICATION: Shortness of breath. TECHNIQUE: A single frontal view of the chest was obtained. COMPARISON: Chest single view 02/28/2024, chest CT 02/25/2024 FINDINGS: There are lucencies and interstitial opacities in the lungs, consistent with emphysema. The re are airspace opacities in the mid and lower lung zones. No pleural effusion or pneumothorax. The h eart size is normal. IMPRESSION: 1. Stable airspace opacities in the mid and lower lung zones, consistent with atelectasis/scarring ve rsus pneumonia. 2. Emphysema. Reviewed, dictated and finalized at location A. IMPRESSION: 1. Stable airspace opacities in the mid and lower lung zones, consistent with a telectasis/scarring versus pneumonia. 2. Emphysema.
--- NOTE | 2024-04-09 22:13 | ECG_ITS ---
SEE SCANNED COPY FOR CONFIRMED REPORT MTDD
--- NOTE | 2024-04-09 22:24 | ED.GENADULT ---
HPI - General Adult General Chief complaint: Shortness of Breath/Dyspnea Stated complaint: I can't get my breath, almost fell twice Time Seen by Provider: 04/09/24 22:22 History of Present Illness HPI narrative: Patient is an 79-year-old male who presents to the emergency department this evening complaining of worsening shortness of breath. Patient states that within the last week he has been having some shortness of breath and a productive cough. Patient states that the cough has improved and has not been bringing up any mucus in the last few days. He did get prescribed a Z-[place] on the 06 of April by his primary care physician and patient states that he feels as though his symptoms are getting worse despite the Z-[place]. Patient states that earlier this year in January she had similar symptoms and at that time was diagnosed with pneumonia and patient states that he feels very similar to what he felt plan. Patient does wear home oxygen, 3 L daily. Patient also admits that he is not been eating or drinking much due to loss of appetite and feeling sick. Patient decided to come to the ED today for further evaluation due to concern for pneumonia. He denies any fevers or chills at home, is currently on any additional symptoms including any chest pain, nausea or vomiting. No other modifying, alleviating, or precipitating factors at this time. Related Data Home Medications Medication Instructions Recorded Confirmed acetaminophen 500 mg tablet 500 mg PO Q6H PRN Pain 03/18/23 03/11/24 (Tylenol Extra Strength) finasteride 5 mg tablet (Proscar) 5 mg PO DAILY 03/18/23 03/11/24 guaifenesin 1,200 mg tablet, 1,200 mg PO BID 03/18/23 03/11/24 extended release 12 hr (Mucinex) multivitamin 1 tablet PO DAILY 03/18/23 03/11/24 nitroglycerin 0.3 mg sublingual 0.3 mg sublingual Q5M PRN Chest 03/18/23 03/11/24 tablet Pain cetirizine 10 mg capsule (Zyrtec) 10 mg PO DAILY PRN allergies 06/13/23 03/11/24 carvedilol 12.5 mg tablet 12.5 mg PO BID 02/25/24 03/11/24 cholecalciferol (vitamin D3) 125 125 mcg PO DAILY 02/25/24 03/11/24 mcg (5,000 unit) capsule sulindac 200 mg tablet 200 mg PO BID 02/25/24 03/11/24 trazodone 100 mg tablet 100 mg PO HS PRN Insomnia 02/25/24 03/11/24 Allergies Allergy/AdvReac Type Severity Reaction Status Date / Time clonazepam AdvReac Severe Drowsy Verified 02/25/24 20:57 roflumilast [From Daliresp] AdvReac Severe Diarrhea Verified 03/11/24 11:49 Review of Systems Review of Systems: All systems are reviewed and are negative unless stated otherwise in the HPI. [facility] Past Medical History Medical History Abdominal aortic aneurysm, without rupture 02/07 CT Accidental clonazepam overdose Acute alteration in mental status SANDI (acute kidney injury) Aortic stenosis Mild - Echo 05/15/2022 Atherosclerotic heart disease of [place] coronary artery without angina pectoris Bilateral primary osteoarthritis of knee CHF (congestive heart failure), NYHA class I EF 45-50% 10/13 Constipation COPD (chronic obstructive pulmonary disease) Family history of colon cancer in father Generalized weakness GERD (gastroesophageal reflux disease) Herpes zoster Herpes zoster encephalitis History of colon polyps History of poliomyelitis History of tobacco use HTN (hypertension) Hx SBO (~05/2007) Hyperlipidemia Ischemic cardiomyopathy Medication administered in error Myoclonus Normal colonoscopy 05/07 NSTEMI (non-ST elevated myocardial infarction) (~08/2019) 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
[2024-04-09 22:30] LABS: Basophils Percent Auto 0.1 % (0.2-1.2); Eosinophils Percent Auto 0.4 % (0-4.4); Hematocrit 32.1 % (42.0-52.0); Hemoglobin 10.2 g/dL (14.0-18.0); Immature Granulocyte Absolute 0.05 K/mm3 (0.00-0.031); Immature Granulocyte Percent A 0.4 % (0-0.5); Lymphocytes Percent Auto 8.1 % (18.3-44.2); Mean Corpuscular HGB Conc 31.8 g/dl (32-36); Mean Corpuscular Hemoglobin 31.4 pg (26-34); Mean Corpuscular Volume 98.8 fl (80-100); Monocytes Absolute Auto 0.7 K/mm3 (0.1-0.6); Monocytes Percent Auto 6.6 % (2.6-8.5); Neutrophils Absolute Auto 9.4 K/mm3 (1.3-6.7); Neutrophils Percent Auto 84.4 % (45.5-73.1); Platelet Count Result 182 k/mm3 (150-375); Red Blood Count 3.25 M/mm3 (4.6-6.20); Red Cell Distribution Width 16.5 % (11.5-14.5); White Blood Count 11.1 K/mm3 (4.5-10.0)
[2024-04-09 22:40] LABS: Lactic Acid Reflex 0.9 mmol/L (0.7-2.0)
[2024-04-09 22:41] LABS: Alanine Aminotransferase 19 U/L (6-50); Albumin Level 3.9 g/dL (3.5-5.1); Alkaline Phosphatase 100 U/L (38-126); Anion Gap 11 mmol/L (4-12); Aspartate Amino Transferase 30 U/L (17-59); Bilirubin,Total 1.5 mg/dL (0.2-1.3); Blood Urea Nitrogen 49 mg/dL (9-20); Calcium 8.7 mg/dL (8.4-10.2); Carbon Dioxide 21 mmol/L (22-30); Chloride 105 mmol/L (98-107); Estimated CRCL calculation 29 ml/min; Estimated Glomerular Filt Rate 32; Glucose 135 mg/dL (65-110); Sodium 137 mmol/L (137-145)
[2024-04-09] MEDS: SODIUM CHLORIDE 0.9% IV 1,000 ML 100 ML IV CONT (23:02)
[2024-04-09 23:06] LABS: Influenza A QL RT-PCR Negative (Negative); Influenza B QL RT-PCR Negative (Negative); RSV RNA, RT-PCR Negative (Negative); SARS-CoV-2 RNA PCR Negative (Negative)
[2024-04-09 23:26] LABS: Appearance Urine Clear (Clear); Bilirubin Urine Negative (Negative); Blood Urine Negative (Negative); Color Urine Dark Yellow (Yellow); Glucose Urine UA Negative (Negative); Ketones Urine Negative (Negative); Leukocyte Esterase Ur Negative LEU/UL (Negative); Nitrate Urine Negative (Negative); Protein Urine Negative (Negative); Specific Grav Ur 1.019 (1.001-1.035)
[2024-04-09 23:30] LABS: Add Urine Microscopic? NO
[2024-04-10] VITALS (23 sets, daily range): BP systolic 118–152; BP diastolic 61–98; PULSE 61–85; RESP 12–20; TEMP 36.1–36.8; O2SAT 94–100; BMI 26.2
[2024-04-10] MEDS: IPRATROPIUM 0.5 MG/ALBUTEROL SULFATE 2.5 MG AMPUL.NEB 3 ML INHALATION (00:34)
--- NOTE | 2024-04-10 01:05 | PM.IMHP ---
H&P: HPI History of Present Illness Date/Time: 04/10/24 01:05 Chief Complaint: Increasing shortness of breath and weakness for 3 days Narrative: 79-year-old male with past medical history recent hospitalization for pneumonia, COPD, combined systolic and diastolic heart failure due to ischemic cardiomyopathy, chronic pain, and chronic hypoxic respiratory failure among other comorbidities who presented to the ER with family from home due to increased cough, shortness of breath and fatigue for 3 days. The patient reports that he has had increased cough for for 5 days. His cough is usually productive of sputum per his baseline but over last 3 days he feels like he has not been able to cough anything up. He did receive a nebulizer treatment in the ER which helped him clear some of his sputum and he briefly felt better. He reports that he has some discomfort in his chest when he takes a deep breath. He called his primary care physician on and received prescription of azithromycin. He took 2 doses of the medication without improvement in his symptoms. He was concerned that he may have pneumonia again site came into the ER for evaluation. He has not been having any fevers or chills. He has had a decreased appetite over the last couple of days. He reports that in the last week he had lost 2 lb when he was weighed prior to physical therapy. He reports that he has actually had a good appetite up until the last couple of days. He knows that he probably has not been drinking enough fluid. His urine has been darker than usual. He has chronic weak urinary stream due to BPH and feels like he may not be completely emptying his bladder the last few days. Postvoid residual performed after patient arrived to the medical floor demonstrated 200 mL of retained urine. He denies any dysuria or changes in urinary frequency or urgency. His last bowel movement was 3 days ago which is not unusual for him. He denies any hematochezia or melena. 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 He denies any difficulty with swallowing, dysphagia, sore throat, or change in rhinorrhea from baseline. He does report post gustatory rhinorrhea. The patient reports that he does not have nebulizers at home. He has not been trying his albuterol inhaler. Review of Systems Review of Systems: 12 systems were reviewed with pertinent positives and negatives per HPI. Except as documented in the HPI, all other systems were reviewed and are negative. [facility] Past Medical History Medical History (Updated 04/10/24 @ 03:29 by Safia Almaguer DO) Abdominal aortic aneurysm, without rupture 02/07 CT Aortic stenosis Mild - Echo 05/15/2022 Atherosclerotic heart disease of [place] coronary artery without angina pectoris Bilateral primary osteoarthritis of knee BPH (benign prostatic hyperplasia) Cancer of lower jaw bone (~1986) Chronic hypoxic respiratory failure, on home oxygen therapy CKD (chronic kidney disease) stage 3, GFR 30-59 ml/min Although patient creatinine is been within normal in the past patient's GFR has been below 59 on most lab values since January 2023 Constipation COPD (chronic obstructive pulmonary disease) Depression Erythema multiforme Essential hypertension Essential tremor GERD (gastroesophageal reflux disease) 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
--- NOTE | 2024-04-10 01:32 | ADMGEN ---
This patient, Russell Morse, was admitted to Medical Room 347-01. Patient/family oriented to hospital policies and general routines including ID bracelet, bed and alarms, visiting hours, pain management, procedures, bathroom and other care routines, personal items, smoking policy, room service/diet, and visiting hours. Information on how to activate the Rapid Response Team has been discussed. Patient/Family are encouraged to report perceived risks to care and to ask questions if they do not understand what they are told or what they should do.
[2024-04-10] MEDS: ALBUTEROL SULFATE NEB 2.5 MG/3 ML INH 5 MG INHALATION ×4 (02:30→19:38)
[2024-04-10] MEDS: IPRATROPIUM BR 0.02% INH SOLN 0.5 MG/2.5 ML VIAL INHALATION ×4 (02:30→19:38)
[2024-04-10 06:04] LABS: Hematocrit 30.6 % (42.0-52.0); Hemoglobin 9.4 g/dL (14.0-18.0); Mean Corpuscular HGB Conc 30.7 g/dl (32-36); Mean Corpuscular Hemoglobin 30.9 pg (26-34); Mean Corpuscular Volume 100.7 fl (80-100); Mean Platelet Volume 10.7 fl (7.4-10.4); Platelet Count Result 146 k/mm3 (150-375); Red Blood Count 3.04 M/mm3 (4.6-6.20); White Blood Count 6.6 K/mm3 (4.5-10.0)
[2024-04-10] MEDS: LINACLOTIDE 145 MCG CAPSULE 290 MCG PO (06:11)
[2024-04-10 06:39] LABS: Anion Gap 7 mmol/L (4-12); Blood Urea Nitrogen 39 mg/dL (9-20); Calcium 8.5 mg/dL (8.4-10.2); Carbon Dioxide 26 mmol/L (22-30); Chloride 106 mmol/L (98-107); Estimated CRCL calculation 33 ml/min; Estimated Glomerular Filt Rate 39; Glucose 102 mg/dL (65-110); Potassium 3.7 mmol/L (3.4-5.0); Sodium 139 mmol/L (137-145)
[2024-04-10] MEDS: FLUTICASONE/UMECLIDIN/VILANTER 100-62.5-25 MCG ELLIPTA 1 PUFF INHALATION (08:24)
[2024-04-10] MEDS: ATORVASTATIN 40 MG TABLET 80 MG PO (08:37)
[2024-04-10] MEDS: FENOFIBRATE 160 MG TABLET PO (08:37)
[2024-04-10] MEDS: TAMSULOSIN HCL 0.4 MG CAPSULE PO (08:37)
[2024-04-10] MEDS: PANTOPRAZOLE 40 MG TABLET PO (08:37)
[2024-04-10] MEDS: FINASTERIDE 5 MG TABLET PO (08:37)
[2024-04-10] MEDS: predniSONE 20 MG TABLET 60 MG PO (08:37)
[2024-04-10] MEDS: ASPIRIN 81 MG ENTERIC TABLET PO (08:38)
[2024-04-10] MEDS: AZITHROMYCIN 250 MG TABLET PO (08:38)
[2024-04-10] MEDS: SERTRALINE HCL 50 MG TABLET PO (08:38)
[2024-04-10] MEDS: SIMETHICONE 125 MG CHEW TAB PO ×4 (08:38→19:51)
[2024-04-10] MEDS: carvediloL 12.5 MG TABLET PO ×2 (08:38→19:51)
[2024-04-10] MEDS: buPROPion HCL SR (12 HR) 150 MG TAB PO ×2 (08:38→19:51)
[2024-04-10] MEDS: ENOXAPARIN 40 MG/0.4 ML SYRINGE SUB-Q (08:38)
[2024-04-10] MEDS: guaiFENesin 12 HR 600 MG TABCR 1200 MG PO ×2 (08:38→17:41)
[2024-04-10] MEDS: MULTIVITAMINS THERAPEUTIC TAB (*BKC) 1 TABLET PO (08:38)
[2024-04-10] MEDS: SODIUM CHLORIDE 0.9% IV 1,000 ML 50 ML IV CONT (08:45)
--- NOTE | 2024-04-10 09:48 | PM.IMPN ---
Progress Note: A&P Assessment and Plan (1) COPD with exacerbation: Code(s): J44.1 - Chronic obstructive pulmonary disease with (acute) exacerbation Status: Acute Assessment and Plan: -Scheduled nebs -prednisone and azithromycin -supplemental oxygen (on home oxygen) -CXR shows scarring vs atelectasis vs pneumonia, will start Rocephin as well (2) Acute kidney injury superimposed on chronic kidney disease: Code(s): N17.9 - Acute kidney failure, unspecified; N18.9 - Chronic kidney disease, unspecified Status: Acute Assessment and Plan: -BUN 49, Cr 2, GFR 32 on admit, baseline appears to be GFR high 40s-60 and Cr 1.2-1.4 -IV fluids made some improvement in renal function BUN 39, Cr 1.7, GFR 39 with AM labs -continue IV fluids at 50 mL/hr, repeat labs in AM -furosemide and losartan on hold due to SANDI (3) Dehydration: Code(s): E86.0 - Dehydration Status: Acute Assessment and Plan: See SANDI above (4) Ischemic cardiomyopathy: Code(s): I25.5 - Ischemic cardiomyopathy Status: Acute Assessment and Plan: -Hx CHF, monitor for fluid overload -diuretics currently on hold but may need to be restarted (5) Chronic hypoxic respiratory failure, on home oxygen therapy: Code(s): J96.11 - Chronic respiratory failure with hypoxia; Z99.81 - Dependence on supplemental oxygen Status: Acute Assessment and Plan: -continue supplemental oxygenation Time Spent With Patient Time with patient: 25 - 35 minutes Subjective Date/time seen: 04/10/24 09:48 Interval history: Patient admitted for COPD exacerbation with dyspnea and inability to cough up secretions. Patient seen this morning as he was finishing a breathing treatment. Patient reports he is feeling a little better now that he can cough up some secretions. CXR showed scarring vs atelectasis vs pneumonia. He started azithromycin the other day and it is continued. Will also add Rocephin. Review of Systems Review of Systems: 12 systems were reviewed with pertinent positives and negatives per HPI. Except as documented in the HPI, all other systems were reviewed and are negative. Exam Narrative: Weight 85 kg BMI 26.1 Const: Other: Chronically ill-appearing, no acute distress, sitting up in bed with head of bed at 30? HENMT: Other: Facial asymmetry of the left side of the jaw all the patient reports chronic due to history prior jaw reconstruction with history of cancer, mucous membranes are tacky, no oral pharyngeal erythema, upper and lower dentures in place Eyes: Other: Pupils are equal and reactive, evidence of lens replacements bilaterally, extraocular movements intact, positive conjunctival pallor, no scleral icterus Neck: Other: No JVD, asymmetry of the anterior cervical chain likely due to prior history of on lymph node resection with cancer on the right Resp: Other: Decreased breath sounds anteriorly bilateral, coarse breath sounds posteriorly bilateral Cardio: Other: Regular rate, regular rhythm, faint murmur GI: Other: Soft, nondistended, normoactive bowel sounds, palpable bladder, ventral hernia noted that is soft in easily reducible Skin: Other: Generalized pallor, non jaundice Neuro: Other: Alert oriented, speech is clear, chronic facial asymmetry due to prior reconstruction of the right jaw, cranial nerves 2-12 appear to be grossly intact, no gross motor deficits noted during the course of casual conversation Extrem: Other: Clubbing noted to the nail beds, no cyanosis, no edema Psych: Other: Appropriate mood and affect, pleasant and cooperative, judgment and insight intact Objective Data Vital Signs Vital Signs: Vital Signs - 24 hr 04/09/24 21:58 04/09/24 22:08 04/09/24 22:20 Temperature 37.7 C H 37.6 C Pulse Rate 82 82 Respiratory Rate 17 20 Blood Pressure 120/50 L Pulse Oximetry 94 94 95
[2024-04-10] MEDS: MORPHINE SULFATE (*CRX) 30 MG TABCR PO (09:57)
[2024-04-10] MEDS: cefTRIAXone 2 GM/NS 100 ML 2 GM/100 ML BAG IVPB (17:43)
[2024-04-10] MEDS: traZODone HCL 50 MG TABLET 100 MG PO (19:51)
[2024-04-11] VITALS (13 sets, daily range): BP systolic 145–157; BP diastolic 56–74; PULSE 61–80; RESP 18–20; TEMP 36.3–36.6; O2SAT 94–99
[2024-04-11] MEDS: BACLOFEN 10 MG TABLET PO ×2 (00:39→21:01)
--- NOTE | 2024-04-11 03:31 | PCRCNOTE ---
Window of time for administration has passed. See next scheduled administration.
[2024-04-11] MEDS: SODIUM CHLORIDE 0.9% IV 1,000 ML 50 ML IV CONT ×2 (05:36→20:51)
[2024-04-11] MEDS: LINACLOTIDE 145 MCG CAPSULE 290 MCG PO (05:36)
[2024-04-11 05:51] LABS: Basophils Percent Auto 0.2 % (0.2-1.2); Hematocrit 32.2 % (42.0-52.0); Hemoglobin 10.3 g/dL (14.0-18.0); Immature Granulocyte Absolute 0.04 K/mm3 (0.00-0.031); Immature Granulocyte Percent A 0.6 % (0-0.5); Lymphocytes Absolute Auto 0.93 K/mm3 (0.9-3.2); Lymphocytes Percent Auto 14.7 % (18.3-44.2); Mean Corpuscular Hemoglobin 30.9 pg (26-34); Mean Corpuscular Volume 96.7 fl (80-100); Mean Platelet Volume 10.5 fl (7.4-10.4); Monocytes Absolute Auto 0.5 K/mm3 (0.1-0.6); Monocytes Percent Auto 8.4 % (2.6-8.5); Neutrophils Absolute Auto 4.8 K/mm3 (1.3-6.7); Neutrophils Percent Auto 76.1 % (45.5-73.1); Platelet Count Result 199 k/mm3 (150-375); Red Blood Count 3.33 M/mm3 (4.6-6.20); Red Cell Distribution Width 15.3 % (11.5-14.5); White Blood Count 6.3 K/mm3 (4.5-10.0)
[2024-04-11 06:07] LABS: Alanine Aminotransferase 21 U/L (6-50); Albumin Level 3.8 g/dL (3.5-5.1); Alkaline Phosphatase 85 U/L (38-126); Anion Gap 6 mmol/L (4-12); Aspartate Amino Transferase 33 U/L (17-59); Bilirubin,Total 0.6 mg/dL (0.2-1.3); Blood Urea Nitrogen 23 mg/dL (9-20); Calcium 9.2 mg/dL (8.4-10.2); Carbon Dioxide 26 mmol/L (22-30); Chloride 108 mmol/L (98-107); Estimated CRCL calculation 51 ml/min; Estimated Glomerular Filt Rate > 60; Glucose 125 mg/dL (65-110); Potassium 3.7 mmol/L (3.4-5.0); Sodium 140 mmol/L (137-145)
[2024-04-11] MEDS: predniSONE 20 MG TABLET 60 MG PO (08:18)
[2024-04-11] MEDS: MULTIVITAMINS THERAPEUTIC TAB (*BKC) 1 TABLET PO (08:18)
[2024-04-11] MEDS: SIMETHICONE 125 MG CHEW TAB PO ×4 (08:18→20:52)
[2024-04-11] MEDS: ATORVASTATIN 40 MG TABLET 80 MG PO (08:18)
[2024-04-11] MEDS: MORPHINE SULFATE (*CRX) 30 MG TABCR PO (08:18)
[2024-04-11] MEDS: buPROPion HCL SR (12 HR) 150 MG TAB PO ×2 (08:18→20:52)
[2024-04-11] MEDS: ASPIRIN 81 MG ENTERIC TABLET PO (08:19)
[2024-04-11] MEDS: FENOFIBRATE 160 MG TABLET PO (08:19)
[2024-04-11] MEDS: TAMSULOSIN HCL 0.4 MG CAPSULE PO (08:19)
[2024-04-11] MEDS: AZITHROMYCIN 250 MG TABLET PO (08:19)
[2024-04-11] MEDS: carvediloL 12.5 MG TABLET PO ×2 (08:19→20:52)
[2024-04-11] MEDS: SERTRALINE HCL 50 MG TABLET PO (08:19)
[2024-04-11] MEDS: FINASTERIDE 5 MG TABLET PO (08:19)
[2024-04-11] MEDS: ENOXAPARIN 40 MG/0.4 ML SYRINGE SUB-Q (08:20)
[2024-04-11] MEDS: guaiFENesin 12 HR 600 MG TABCR 1200 MG PO ×2 (08:20→16:43)
[2024-04-11] MEDS: PANTOPRAZOLE 40 MG TABLET PO (08:20)
[2024-04-11] MEDS: ALBUTEROL SULFATE NEB 2.5 MG/3 ML INH 5 MG INHALATION ×3 (08:30→20:03)
[2024-04-11] MEDS: IPRATROPIUM BR 0.02% INH SOLN 0.5 MG/2.5 ML VIAL INHALATION ×3 (08:31→20:03)
[2024-04-11] MEDS: FLUTICASONE/UMECLIDIN/VILANTER 100-62.5-25 MCG ELLIPTA 1 PUFF INHALATION (08:37)
--- NOTE | 2024-04-11 13:47 | PM.IMPN ---
Progress Note: A&P Assessment and Plan (1) COPD with exacerbation: Code(s): J44.1 - Chronic obstructive pulmonary disease with (acute) exacerbation Status: Acute Assessment and Plan: 04/10/24: -Scheduled nebs -prednisone and azithromycin -supplemental oxygen (on home oxygen) -CXR shows scarring vs atelectasis vs pneumonia, will start Rocephin as well 04/11/24: continue with current treatment plan Will continue azithromycin and Rocephin today and transition to oral tomorrow Patient has albuterol and Breztri inhalers at home He follows with Dr. Gottlieb We will plan to discharge him with a prescription for a nebulizer and DuoNebs He will also need a steroid taper (2) Acute kidney injury superimposed on chronic kidney disease: Code(s): N17.9 - Acute kidney failure, unspecified; N18.9 - Chronic kidney disease, unspecified Status: Acute Assessment and Plan: 04/10/24: -BUN 49, Cr 2, GFR 32 on admit, baseline appears to be GFR high 40s-60 and Cr 1.2-1.4 -IV fluids made some improvement in renal function BUN 39, Cr 1.7, GFR 39 with AM labs -continue IV fluids at 50 mL/hr, repeat labs in AM -furosemide and losartan on hold due to SANDI 04/11/24: creatinine down to 1.1 today will restart home medications continue to trend labs (3) Dehydration: Code(s): E86.0 - Dehydration Status: Acute Assessment and Plan: See SANDI above (4) Ischemic cardiomyopathy: Code(s): I25.5 - Ischemic cardiomyopathy Status: Acute Assessment and Plan: 04/10/24: -Hx CHF, monitor for fluid overload -diuretics currently on hold but may need to be restarted 04/11/24: creatinine down to 1.10 today will restart Lasix 40 mg daily (5) Chronic hypoxic respiratory failure, on home oxygen therapy: Code(s): J96.11 - Chronic respiratory failure with hypoxia; Z99.81 - Dependence on supplemental oxygen Status: Acute Assessment and Plan: 04/10/24: -continue supplemental oxygenation 04/11/24: no change to current treatment plan Time Spent With Patient Time with patient: Greater than 35 minutes Subjective Date/time seen: 04/11/24 13:47 Interval history: This is an 79-year-old male who presented to the hospital on 04/10/2024 with increased shortness of breath and weakness for 3 days. Workup in the hospital included a chest x-ray which showed stable airspace opacities in the mid and lower lung zones consistent with atelectasis/scarring versus pneumonia, emphysema. Initial labs showed a white blood cell count of 11.1, hemoglobin 10.2, creatinine 2.0, EGFR 32, total bili 1.5. UA was obtained and was negative for bacteria. Respiratory panel was negative for influenza a and B, RSV, COVID. Past cultures were reviewed and patient had history of Pseudomonas Aeruginosa and H influenzae and sputum cultures. On exam today patient is alert oriented x3, sitting in the chair. He denies any fever, chills, nausea, vomiting, diarrhea, abdominal pain, chest pain, shortness a breath. He he states he is feeling much better today. Patient states he wears 2-3 L at baseline. He is currently on 3 L. Labs today show a normal white blood cell count of 6.3, hemoglobin 10.3, creatinine down to 1.1, EGFR greater than 60, total bili down to 0.6. We will go ahead and repeat an H influenzae today and obtain another sputum culture. He will continue with prednisone 60 mg daily, azithromycin, and Rocephin. We will plan on transitioning him tomorrow to oral antibiotics and give him prednisone. I will also get him a nebulizer for use at home and DuoNebs. Review of Systems Review of Systems: All systems reviewed & are unremarkable except as noted in HPI and below Constitutional: Constitutional: Reports as per HPI and Reports no additional constitutional complaints Eyes: Eyes: Reports as per HPI and Reports no additional eye complaints ENT: Reports system reviewed and no additional complaints,
[2024-04-11] MEDS: FUROSEMIDE 40 MG TABLET PO (15:26)
[2024-04-11] MEDS: cefTRIAXone 2 GM/NS 100 ML 2 GM/100 ML BAG IVPB (15:26)
[2024-04-11] MEDS: LOSARTAN POTASSIUM 50 MG TABLET PO (15:26)
[2024-04-11] MEDS: traZODone HCL 50 MG TABLET 100 MG PO (20:52)
[2024-04-12 01:57] VITALS: PULSE 64; RESP 18
[2024-04-12] MEDS: IPRATROPIUM BR 0.02% INH SOLN 0.5 MG/2.5 ML VIAL INHALATION ×2 (01:57→08:23)
[2024-04-12] MEDS: ALBUTEROL SULFATE NEB 2.5 MG/3 ML INH 5 MG INHALATION ×2 (01:57→08:23)
[2024-04-12 02:09] VITALS: PULSE 66; RESP 18
[2024-04-12 06:00] VITALS: BP 177/78; PULSE 65; RESP 20; TEMP 36.4; O2SAT 98
[2024-04-12] MEDS: LINACLOTIDE 145 MCG CAPSULE 290 MCG PO (06:15)
[2024-04-12 06:22] LABS: Basophils Percent Auto 0.1 % (0.2-1.2); Hematocrit 33.2 % (42.0-52.0); Hemoglobin 10.5 g/dL (14.0-18.0); Immature Granulocyte Absolute 0.03 K/mm3 (0.00-0.031); Immature Granulocyte Percent A 0.4 % (0-0.5); Lymphocytes Percent Auto 20.3 % (18.3-44.2); Mean Corpuscular HGB Conc 31.6 g/dl (32-36); Mean Corpuscular Hemoglobin 30.7 pg (26-34); Mean Corpuscular Volume 97.1 fl (80-100); Mean Platelet Volume 10.6 fl (7.4-10.4); Monocytes Absolute Auto 0.7 K/mm3 (0.1-0.6); Monocytes Percent Auto 9.7 % (2.6-8.5); Neutrophils Absolute Auto 4.8 K/mm3 (1.3-6.7); Neutrophils Percent Auto 69.5 % (45.5-73.1); Platelet Count Result 212 k/mm3 (150-375); Red Blood Count 3.42 M/mm3 (4.6-6.20); Red Cell Distribution Width 15.4 % (11.5-14.5); White Blood Count 6.9 K/mm3 (4.5-10.0)
[2024-04-12 06:26] LABS: Alanine Aminotransferase 23 U/L (6-50); Albumin Level 3.6 g/dL (3.5-5.1); Alkaline Phosphatase 80 U/L (38-126); Anion Gap 5 mmol/L (4-12); Aspartate Amino Transferase 32 U/L (17-59); Bilirubin,Total 0.5 mg/dL (0.2-1.3); Blood Urea Nitrogen 23 mg/dL (9-20); Calcium 9.3 mg/dL (8.4-10.2); Carbon Dioxide 30 mmol/L (22-30); Chloride 104 mmol/L (98-107); Estimated CRCL calculation 51 ml/min; Estimated Glomerular Filt Rate > 60; Glucose 117 mg/dL (65-110); Magnesium 1.8 mg/dL (1.6-2.3); Potassium 3.7 mmol/L (3.4-5.0); Sodium 139 mmol/L (137-145)
[2024-04-12 08:23] VITALS: PULSE 66; RESP 18; O2SAT 98
[2024-04-12] MEDS: FLUTICASONE/UMECLIDIN/VILANTER 100-62.5-25 MCG ELLIPTA 1 PUFF INHALATION (08:23)
[2024-04-12] MEDS: buPROPion HCL SR (12 HR) 150 MG TAB PO (08:35)
[2024-04-12] MEDS: FINASTERIDE 5 MG TABLET PO (08:35)
[2024-04-12] MEDS: ENOXAPARIN 40 MG/0.4 ML SYRINGE SUB-Q (08:35)
[2024-04-12] MEDS: FENOFIBRATE 160 MG TABLET PO (08:35)
[2024-04-12] MEDS: AZITHROMYCIN 250 MG TABLET PO (08:36)
[2024-04-12] MEDS: FUROSEMIDE 40 MG TABLET PO (08:36)
[2024-04-12] MEDS: TAMSULOSIN HCL 0.4 MG CAPSULE PO (08:36)
[2024-04-12] MEDS: ASPIRIN 81 MG ENTERIC TABLET PO (08:36)
[2024-04-12] MEDS: PANTOPRAZOLE 40 MG TABLET PO (08:36)
[2024-04-12] MEDS: SERTRALINE HCL 50 MG TABLET PO (08:36)
[2024-04-12] MEDS: ACETAMINOPHEN 500 MG TABLET PO (08:36)
[2024-04-12] MEDS: MULTIVITAMINS THERAPEUTIC TAB (*BKC) 1 TABLET PO (08:36)
[2024-04-12 08:37] VITALS: PULSE 76
[2024-04-12] MEDS: MORPHINE SULFATE (*CRX) 30 MG TABCR PO (08:37)
[2024-04-12] MEDS: guaiFENesin 12 HR 600 MG TABCR 1200 MG PO (08:37)
[2024-04-12] MEDS: predniSONE 20 MG TABLET 60 MG PO (08:37)
[2024-04-12] MEDS: carvediloL 12.5 MG TABLET PO (08:37)
[2024-04-12] MEDS: SIMETHICONE 125 MG CHEW TAB PO ×2 (08:37→12:54)
[2024-04-12] MEDS: LOSARTAN POTASSIUM 50 MG TABLET PO (08:37)
[2024-04-12] MEDS: ATORVASTATIN 40 MG TABLET 80 MG PO (08:39)
[2024-04-12 08:40] VITALS: PULSE 68; RESP 18
--- NOTE | 2024-04-12 11:03 | PM.DS ---
DS: Admitting Diagnosis Discharge Date 04/12/24 Admitting Diagnosis Shortness of breath Acute kidney injury superimposed on chronic kidney disease Dehydration Chronic hypoxic respiratory failure, home oxygen therapy COPD exacerbation Ischemic cardiomyopathy DS: Discharge Diagnosis Discharge Diagnosis (1) COPD with exacerbation: Code(s): J44.1 - Chronic obstructive pulmonary disease with (acute) exacerbation Status: Acute (2) Acute kidney injury superimposed on chronic kidney disease: Code(s): N17.9 - Acute kidney failure, unspecified; N18.9 - Chronic kidney disease, unspecified Status: Acute (3) Dehydration: Code(s): E86.0 - Dehydration Status: Acute (4) Ischemic cardiomyopathy: Code(s): I25.5 - Ischemic cardiomyopathy Status: Acute (5) Chronic hypoxic respiratory failure, on home oxygen therapy: Code(s): J96.11 - Chronic respiratory failure with hypoxia; Z99.81 - Dependence on supplemental oxygen Status: Acute DS: Summary Hospital Course Reason for hospitalization: Shortness of breath Acute kidney injury superimposed on chronic kidney disease Dehydration Chronic hypoxic respiratory failure, home oxygen therapy COPD exacerbation Ischemic cardiomyopathy Hospital Course: 04/11/24: This is an 79-year-old male who presented to the hospital on 04/10/2024 with increased shortness of breath and weakness for 3 days.? Workup in the hospital included a chest x-ray which showed stable airspace opacities in the mid and lower lung zones consistent with atelectasis/scarring versus pneumonia, emphysema.? Initial labs showed a white blood cell count of 11.1, hemoglobin 10.2, creatinine 2.0, EGFR 32, total bili 1.5.? UA was obtained and was negative for bacteria.? Respiratory panel was negative for influenza a and B, RSV, COVID.? Past cultures were reviewed and patient had history of Pseudomonas Aeruginosa and H influenzae and sputum cultures. On exam today patient is alert oriented x3, sitting in the chair.? He denies any fever, chills, nausea, vomiting, diarrhea, abdominal pain, chest pain, shortness a breath.? He he states he is feeling much better today.? Patient states he wears 2-3 L at baseline.? He is currently on 3 L.? Labs today show a normal white blood cell count of 6.3, hemoglobin 10.3, creatinine down to 1.1, EGFR greater than 60, total bili down to 0.6.? We will go ahead and repeat an H influenzae today and obtain another sputum culture.? He will continue with prednisone 60 mg daily, azithromycin, and Rocephin.? We will plan on transitioning him tomorrow to oral antibiotics and give him prednisone.? I will also get him a nebulizer for use at home and DuoNebs. 04/12/24: Patient denies any new complaints today. He is back down to his baseline oxygen requirements of 2-3 L. labs today show hemoglobin of 10.5, creatinine is down to 1.1. He is stable for discharge at this time. He will need to finish his course of azithromycin, Augmentin, prednisone taper. I also ordered a nebulizer for him for use at home with Albuterol and DuoNebs with instructions on how to use and when to use these medicaitons. Final diagnosis: COPD exacerbation, acute on chronic hypoxic respiratory failure, acute kidney injury superimposed on chronic kidney disease, dehydration Status at Discharge Cognitive/behavioral status at discharge: Alert oriented x4 Functional status at discharge: independent ambulation Overall status at discharge: patient is progressing back to baseline Time Spent with Patient Time attestation: Total time spent providing and/or coordinating discharge services: Time spent: Greater than 30 minutes Exam Narrative: General: In no acute distress, well nourished Head: atraumatic, no encephalopathy Eyes: EOMI, PERRLA, sclera clear ENT: moist mucous membranes, nasal passages clear Neck: supple, no JVD, no adenopathy, trachea midline Cardiac: Normal S1 and S2. No murmur, gallops or fricti
== END 2024-04-12 13:31 | disposition home or self-care (01) ==
LOC: ANHED 04-10 00:46 → ANH3MED 04-10 01:35
PROVIDERS: Nurse Practitioner; Nurse Practitioner Acute Care; Admitting Provider Internal Medicine; Emergency Provider Emergency Medicine; PCP Family Medicine Adolescent Medicine; Visit Provider Internal Medicine
DX: J44.1 Chronic obstructive pulmonary disease with (acute) exacerbation (principal); J96.11 Chronic respiratory failure with hypoxia; N17.9 Acute kidney failure, unspecified; E86.0 Dehydration; Z99.81 Dependence on supplemental oxygen; I13.0 Hypertensive heart and chronic kidney disease with heart failure and stage 1 through stage 4 chronic kidney disease, or unspecified chronic kidney disease; I50.9 Heart failure, unspecified; N18.9 Chronic kidney disease, unspecified; I25.10 Atherosclerotic heart disease of native coronary artery without angina pectoris; I25.5 Ischemic cardiomyopathy; E78.5 Hyperlipidemia, unspecified; I25.2 Old myocardial infarction; I71.40 Abdominal aortic aneurysm, without rupture, unspecified; J44.9 Chronic obstructive pulmonary disease, unspecified; K21.9 Gastro-esophageal reflux disease without esophagitis; G25.81 Restless legs syndrome; Z20.822 Contact with and (suspected) exposure to COVID-19; Z95.5 Presence of coronary angioplasty implant and graft; Z90.49 Acquired absence of other specified parts of digestive tract; Z87.891 Personal history of nicotine dependence; Z79.82 Long term (current) use of aspirin; Z79.51 Long term (current) use of inhaled steroids; Z79.891 Long term (current) use of opiate analgesic
CPT/HCPCS: 36415; 71045; 80048; 80053; 81003; 83605; 83735; 85025; 85027; 86684; 87070; 87205; 87637; 93005; 94640; 96361; 96365; 96372; 99285; A9270; G0378; J0696; J1650; J7030; J7512

== ENCOUNTER 2024-04-25 11:00 | Outpatient (RCR) | payer MEDICARE, MEDICAID, SELFPAY | END 2024-04-25 23:59 | disposition home or self-care (01) | LOC: ANHCPREHAB 11:00 | PROVIDERS: PCP Family Medicine Adolescent Medicine; Visit Provider Internal Medicine Critical Care Medicine | DX: J44.9 Chronic obstructive pulmonary disease, unspecified (principal) | CPT/HCPCS: 94625 ==

== ENCOUNTER 2024-06-13 11:15 | Outpatient (RCR) | payer MEDICARE, MEDICAID, SELFPAY | END 2024-06-13 12:46 | disposition home or self-care (01) | LOC: ANHCPREHAB 11:15 | PROVIDERS: PCP Family Medicine Adolescent Medicine; Visit Provider Internal Medicine Critical Care Medicine | DX: J44.9 Chronic obstructive pulmonary disease, unspecified (principal) | CPT/HCPCS: 94625 ==

== ENCOUNTER 2024-06-24 12:24 | Outpatient (CLI) | payer MEDICARE, MEDICAID, SELFPAY ==
--- NOTE | 2024-06-24 16:31 | WPDSIXMINUTE ---
Six Minute Walk Procedure Procedure Performed Pulmonary Stress Test (6 min walk) Six Minute Walk Six Minute Walk: This is a 6 minute walk test. The test was performed and interpreted in accordance with the 2014 ERS/ATS task force guidelines. Of note, patient used to wheeled walker for stability and the testing was performed on his home portable oxygen concentrator at 3 L with pulse dose. Findings: The patient's resting 3 L oxygen saturation measured by pulse oximetry was 95% and heart rate was 80 bpm. Patient ambulated for 137 meters and oxygen saturation remained 91 to 92%. Heart rate at the end of the study was 94 bpm. The patient did not have rest or exertional hypoxemia on 3 L nasal cannula pulse dose with his portable oxygen concentrator. There are no prior studies for comparison.
== END 2024-06-24 12:25 | disposition home or self-care (01) ==
PROVIDERS: PCP Family Medicine Adolescent Medicine; Visit Provider Physician Assistant
DX: J44.9 Chronic obstructive pulmonary disease, unspecified (principal)
CPT/HCPCS: 94618

== ENCOUNTER 2024-08-29 13:25 | Outpatient (CLI) | payer MEDICARE, MEDICAID, SELFPAY ==
--- NOTE | ~2024-08-29 | CT_ITS ---
CT Scan of the Chest without Contrast: Clinical Indication: COPD Technique: Contiguous sections were acquired throughout the chest without intravenous contrast. Dose reduction technique was used on this scan by utilizing automated exposure control and iterative recon struction technique. The dose-length product (DLP) was 133.52 mGy-cm. COMPARISON: 02/25/2024 Findings: Coronary artery calcifications are present. There are several minimally prominent mediastinal lymph n odes, including a precarinal lymph node with coarse calcification. No aortic aneurysm. No pericardial effusion. Small right pleural effusion and minimal left pleural effusion are present. There is probable bibasil ar atelectasis, versus possibly pneumonia. There is moderate emphysema, scattered areas of probable c hronic interstitial change. Probable minimal scattered tree-in-bud opacities, improved from prior exa m. Images through the upper abdomen reveal no abnormalities. Impression: Small right pleural effusion and minimal left pleural effusion with probable bibasilar atelectasis. C orrelate clinically for pneumonia. Moderate emphysema and scattered chronic interstitial changes. Probable minimal tree-in-bud opacities, improved overall from prior exam, compatible with mild small areas infectious process. Reviewed, dictated and finalized at location M. Impression: Small right pleural effusion and minimal left pleural effusion with probable bi basilar atelectasis. Correlate clinically for pneumonia. Moderate emphysema and scattered chronic interstitial changes. Probable minimal tree-in-bud opacities, improved overall from prior exam, kaylin tible with mild small areas infectious process.
== END 2024-08-29 13:26 | disposition home or self-care (01) ==
PROVIDERS: PCP Family Medicine Adolescent Medicine; Visit Provider Internal Medicine Pulmonary Disease
DX: J90 Pleural effusion, not elsewhere classified (principal); J43.9 Emphysema, unspecified; J84.9 Interstitial pulmonary disease, unspecified; J44.9 Chronic obstructive pulmonary disease, unspecified
CPT/HCPCS: 71250

== ENCOUNTER 2024-08-31 12:55 | Outpatient (CLI) | payer MEDICARE, MEDICAID, SELFPAY ==
--- NOTE | ~2024-08-31 | XR_ITS ---
XR chest 2V 08/31/2024 13:28 Indication: Pneumonia. COPD. Procedure: 2 view chest Comparison: Comparison to multiple prior studies sequentially, with oldest reviewed study dated 02/2024. Findings: Chronic bibasilar interstitial and airspace consolidation. Small pleural effusions. Heart s ize normal. The lungs are hyperinflated which is consistent with, but not diagnostic of chronic obstr uctive pulmonary disease. Impression: 1: Stable chronic mixed interstitial and airspace consolidation of the lung bases which may represent a combination of atelectasis/scarring and/or pneumonia. 2: Small pleural effusions. Reviewed, dictated and finalized at location B. Impression: 1: Stable chronic mixed interstitial and airspace consolidation of the lung bas es which may represent a combination of atelectasis/scarring and/or pneumonia. 2: Small pleural effusions.
[2024-08-31 13:52] LABS: Influenza A QL RT-PCR Negative (Negative); Influenza B QL RT-PCR Negative (Negative); RSV RNA, RT-PCR Negative (Negative); SARS-CoV-2 RNA PCR Negative (Negative)
== END 2024-08-31 12:56 | disposition home or self-care (01) ==
LOC: ANHLAB 13:00
PROVIDERS: PCP Family Medicine Adolescent Medicine; Visit Provider Nurse Practitioner Family
DX: J18.1 Lobar pneumonia, unspecified organism (principal); J90 Pleural effusion, not elsewhere classified; I50.32 Chronic diastolic (congestive) heart failure
CPT/HCPCS: 71046; 87637

== ENCOUNTER 2024-09-19 12:22 | Outpatient (CLI) | payer MEDICARE, MEDICAID, SELFPAY ==
--- NOTE | ~2024-09-19 | XR_ITS ---
EXAMINATION: XR hip RT 2V w AP pelvis DATE: 09/19/2024 12:58 INDICATION: EXAMINATION: XR hip RT 2V w AP pelvis DATE: 09/19/2024 12:58 INDICATION: Right hip pain. TECHNIQUE: An anteroposterior view of the pelvis and 2 views of right hip were obtained. COMPARISON: None. FINDINGS: There is lumbar dextrocurvature and severe spondylosis. No fracture. There is moderate oste oarthritis of the hips. IMPRESSION: 1. Moderate osteoarthritis of the hips. TECHNIQUE: were obtained. COMPARISON: None. FINDINGS: IMPRESSION: 1. Reviewed, dictated and finalized at location B. IMPRESSION: 1. Moderate osteoarthritis of the hips. TECHNIQUE: were obtained. COMPARISON: None. FINDINGS: IMPRESSION: 1.
--- NOTE | ~2024-09-19 | XR_ITS ---
Clinical Indication: 08/31/2024 PA and lateral views of the chest: Comparison: Dyspnea Findings: Small right pleural effusion present. Possible mild central congestive change. Suspected un derlying COPD. Stable linear left basilar scarring. Cardiomediastinal silhouette is within normal li mits. Bones and soft tissues are unremarkable. Impression: Small right pleural effusion with possible minimal central interstitial change. Underlying COPD and stable linear scarring left lung base. Reviewed, dictated and finalized at location . Impression: Small right pleural effusion with possible minimal central interstitial change. Underlying COPD and stable linear scarring left lung base.
== END 2024-09-19 12:23 | disposition home or self-care (01) ==
PROVIDERS: PCP Family Medicine Adolescent Medicine; Visit Provider Family Medicine Adolescent Medicine
DX: J90 Pleural effusion, not elsewhere classified (principal); J98.4 Other disorders of lung; J44.9 Chronic obstructive pulmonary disease, unspecified; M16.0 Bilateral primary osteoarthritis of hip
CPT/HCPCS: 71046; 73502

== ENCOUNTER 2024-10-04 19:42 | Emergency (ER) | payer MEDICARE, MEDICAID, SELFPAY ==
[2024-10-04] VITALS (7 sets, daily range): BP systolic 139–161; BP diastolic 63–70; PULSE 80–100; RESP 14–24; TEMP 36.6–36.8; O2SAT 94–98
--- NOTE | ~2024-10-04 | XR_ITS ---
CHEST RADIOGRAPH, PA AND LATERAL CLINICAL HISTORY: short of breath . COMPARISON: 09/19/2024 TECHNIQUE: PA and lateral views of the chest. FINDINGS The cardiomediastinal silhouette is enlarged, unchanged. Increased right-sided pleural effusion when compared with previous examination. Increased interstitial markings are identified bilaterally, findings suggesting mild pulmonary vascul ar congestion. The lungs are otherwise clear. Visualized osseous structures and soft tissues are unremarkable. IMPRESSION: Mild pulmonary vascular congestion with an increased right-sided pleural effusion when compared with previous examination approximately 2 weeks earlier Reviewed, dictated and finalized at location A. [facility] NURSE IMPRESSION: Mild pulmonary vascular congestion with an increased right-sided pleural effusi on when compared with previous examination approximately 2 weeks earlier
--- NOTE | 2024-10-04 19:49 | ECG_ITS ---
Test Date: 2024-10-04 19:53:14 Measurements Intervals [place] Rate: 91 P: 64 CA: 213 QRS: -14 QRSD: 108 T: 48 QT: 362 QTc: 446 Interpretive Statements SINUS RHYTHM WITH FIRST DEGREE AV BLOCK LOW QRS VOLTAGE IN PRECORDIAL LEADS INCOMPLETE RIGHT BUNDLE BRANCH BLOCK BORDERLINE T WAVE ABNORMALITY- ANTERIOR LEADS BASELINE ARTIFACT- I, II, III, V4-V6 BORDERLINE ECG No previous ECG available for comparison Electronically Signed On 10-04-2024 20:29:55 [employer] by Tim Mary D.O.
[2024-10-04 20:47] LABS: Basophils Percent Auto 0.3 % (0.2-1.2); Eosinophils Absolute Auto 0.4 K/mm3 (0-0.3); Eosinophils Percent Auto 3.2 % (0-4.4); Hematocrit 34.3 % (42.0-52.0); Immature Granulocyte Absolute 0.05 K/mm3 (0.00-0.031); Immature Granulocyte Percent A 0.5 % (0-0.5); Lymphocytes Percent Auto 9.9 % (18.3-44.2); Mean Corpuscular HGB Conc 32.1 g/dl (32-36); Mean Corpuscular Hemoglobin 31.6 pg (26-34); Mean Corpuscular Volume 98.6 fl (80-100); Mean Platelet Volume 10.6 fl (7.4-10.4); Monocytes Absolute Auto 0.8 K/mm3 (0.1-0.6); Monocytes Percent Auto 6.8 % (2.6-8.5); Neutrophils Absolute Auto 8.8 K/mm3 (1.3-6.7); Neutrophils Percent Auto 79.3 % (45.5-73.1); Platelet Count Result 223 k/mm3 (150-375); Red Blood Count 3.48 M/mm3 (4.6-6.20); Red Cell Distribution Width 14.8 % (11.5-14.5); White Blood Count 11.1 K/mm3 (4.5-10.0)
[2024-10-04 20:58] LABS: INR 1.2; Prothrombin Time 15.3 Seconds (11.1-14.7)
[2024-10-04 21:00] LABS: Alanine Aminotransferase 15 U/L (6-50); Albumin Level 3.8 g/dL (3.5-5.1); Alkaline Phosphatase 109 U/L (38-126); Anion Gap 7 mmol/L (4-12); Aspartate Amino Transferase 30 U/L (17-59); Bilirubin,Total 0.4 mg/dL (0.2-1.3); Blood Urea Nitrogen 38 mg/dL (9-20); Calcium 8.9 mg/dL (8.4-10.2); Carbon Dioxide 30 mmol/L (22-30); Chloride 103 mmol/L (98-107); Estimated CRCL calculation 47 ml/min; Estimated Glomerular Filt Rate 58; Glucose 131 mg/dL (65-110); Potassium 4.2 mmol/L (3.4-5.0); Sodium 140 mmol/L (137-145)
[2024-10-04 21:11] LABS: NT Pro B Type Natriuretic Pept 296 pg/mL (19.9-100); Troponin I < 0.012 ng/mL (0.000-0.034)
--- NOTE | 2024-10-04 21:22 | ECG_ITS ---
Test Date: 2024-10-04 21:37:05 Measurements Intervals [place] Rate: 51 P: 42 AK: 191 QRS: -8 QRSD: 112 T: 42 QT: 384 QTc: 355 Interpretive Statements SINUS BRADYCARDIA WITH MARKED RHYTHM IRREGULARITY, POSSIBLE NON-CONDUCTED PAC, SA BLOCK, AV BLOCK, OR SINUS PAUSE BORDERLINE AV CONDUCTION DELAY INCOMPLETE RIGHT BUNDLE BRANCH BLOCK BASELINE ARTIFACT- AVR, AVL, AVF ABNORMAL ECG Compared to ECG 10/04/2024 19:53:14 HEART RATE HAS DECRASED Electronically Signed On 10-05-2024 06:35:30 [employer] by Tim Mary D.O.
--- NOTE | 2024-10-04 21:44 | ED.SOB ---
HPI - SOB/Dyspnea General Chief Complaint: Shortness of Breath/Dyspnea Stated Complaint: short of breath Time Seen by Provider: 10/04/24 21:11 History of Present Illness HPI Narrative: 79-year-old male with history of ischemic cardiomyopathy, ME and stent placements in 2019, GERD, hypertension, hyperlipidemia, MDD, CHF, COPD with chronic hypoxic respiratory failure on 3 L nasal cannula at baseline, and CHF presents to emergency department with son at bedside for shortness of breath. Patient states he began feeling short of breath last night and has had increased his oxygen to 4 L and 5 L nasal cannula while exerting himself. States that shortness of breath a sitting with the worsening with exerting self. He also reports an increase in productive cough. States he has had a low-grade temp of 99? at home. Denies lower extremity edema, hemoptysis, abdominal pain, chest pain. He does not currently smoke. Related Data Home Medications Medication Instructions Recorded Confirmed acetaminophen 500 mg tablet 500 mg PO Q6H PRN Pain 03/18/23 09/19/24 (Tylenol Extra Strength) finasteride 5 mg tablet (Proscar) 5 mg PO DAILY 03/18/23 09/19/24 multivitamin 1 tablet PO DAILY 03/18/23 09/19/24 nitroglycerin 0.3 mg sublingual 0.3 mg sublingual Q5M PRN Chest 03/18/23 09/19/24 tablet Pain cetirizine 10 mg capsule (Zyrtec) 10 mg PO DAILY PRN allergies 06/13/23 09/19/24 carvedilol 12.5 mg tablet 12.5 mg PO BID 02/25/24 09/19/24 guaifenesin 1,200 mg tablet, 1,200 mg PO BID PRN cough 08/11/24 09/19/24 extended release 12 hr (Mucinex) Allergies Allergy/AdvReac Type Severity Reaction Status Date / Time clonazepam AdvReac Severe Drowsy Verified 09/19/24 11:22 roflumilast [From Daliresp] AdvReac Severe Diarrhea Verified 09/19/24 11:22 Review of Systems Review of Systems: All systems reviewed & are unremarkable except as noted in HPI and below PMFSH Past Medical History Medical History Abdominal aortic aneurysm, without rupture 02/07 CT Aortic stenosis Mild - Echo 05/15/2022 Atherosclerotic heart disease of [place] coronary artery without angina pectoris Bilateral primary osteoarthritis of knee BPH (benign prostatic hyperplasia) Cancer of lower jaw bone (~1986) Chronic hypoxic respiratory failure, on home oxygen therapy CKD (chronic kidney disease) stage 3, GFR 30-59 ml/min Although patient creatinine is been within normal in the past patient's GFR has been below 59 on most lab values since January 2023 Constipation COPD (chronic obstructive pulmonary disease) Depression Erythema multiforme Essential hypertension Essential tremor GERD (gastroesophageal reflux disease) 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 Herpes encephalitis versus a medication effect History of colon polyps History of poliomyelitis History of tobacco use Hx SBO (~05/2007) Hyperlipidemia Ischemic cardiomyopathy Echocardiogram 09/2021: Mildly reduced left ventricular systolic function EF of 45-50%, grade 1 diastolic dysfunction, inferior wall inferior septal wall basal inferior wall and mid inferior lateral wall hypokinesis with mild left atrial and large Myoclonus Normal colonoscopy 05/07 NSTEMI (non-ST elevated myocardial infarction) (~08/2019) Other chronic pain Polio (~1951) Postherpetic neuralgia Primary osteoarthritis, left shoulder Primary osteoarthritis, right shoulder Restless legs syndrome Spinal stenosis, lumbar region without neurogenic claudication Vitamin D deficiency Surgical History Surgical History H/O colonoscopy with polypectomy H/O rotator cuff surgery Bilateral History of bowel resection Due to obstruction History of colon resection History of coronary artery stent placement X2 History of mandibular surgery 1986 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 Bone removed from right hip for reconstructive surgery Presence of coronary angioplasty implant and graft S/P tonsillectomy and adenoidectomy Family History Family History Mother Diabetes mellitus Acute myocardial infarction Father Colon cancer COPD (chronic obstructive pulmonary disease) Sibling Colon cancer Acute myocardial infarction Lung cancer COPD (chronic obstructive pulmonary disease) Sibling COPD (chronic obstructive pulmonary disease) Sibling Congestive heart failure Sibling Dementia Social History Social History Social History: The patient lives with his son and [id number]. Patient is a . The patient quit smoking in 2019. He also gave up alcohol many years ago. No marijuana or illicit drugs. 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 The patient has 5 biological children and raise 2 other children. Code status: Do not intubate Surrogate decision maker: Smoking packs per day: 1.5 Smoking cigarettes per day: 30.0 Years smoked: 60 Smoking pack-years: 90.00 Smoking status: Former smoker Tobacco type: cigarettes Second hand tobacco smoke exposure: No Alcohol intake: former Substance use: never Substance use type: does not use Other substance usage details: quit alcohol in 2010 Last use: Last alcohol use 2010 Do You Feel Safe in your Home?: Yes Lack of Transportation: No Lack of Food: Never True Current Housing: I Have Housing Concerned About Future Housing: No Difficulty Paying Gas/Electric Bills: No Difficulty Paying for Meds: No Currently Unemployed: No Education: Decline to Answer Difficulty w/ Childcare or Family Care: No Living arrangements: with family 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: retired Gender identity (if verbalized by the patient): Male Sexual Orientation (if Verbalized by the Patient): Straight or Heterosexual Spiritual care concerns: No Agree to blood products: Yes Exam Narrative: GENERAL: Well-appearing, well-nourished, and in no acute distress. HEAD: Normocephalic, atraumatic. EYES: EOMI. ENT: Nares clear, no rhinorrhea or epistaxis. Mucous membranes moist. NECK: Supple. CHEST: Rales in the lower lung short. Satting 96% on 3 L nasal cannula upon my evaluation. Speaking in full sentences. HEART: Regular rate and rhythm. No murmur heard. Normal peripheral pulses. ABDOMEN: Soft, nontender, nondistended, normal active bowel sounds. EXTREMITIES: Normal range of motion. No edema. SKIN: Warm, dry, no rash. NEURO: No focal deficits. Alert and oriented x3 Course Vital Signs Vital signs: Vital Signs Temperature 98.2 F 10/04/24 19:46 Pulse Rate 89 10/04/24 19:46 Respiratory Rate 24 H 10/04/24 19:46 Blood Pressure 140/63 10/04/24 19:46 Pulse Oximetry 94 10/04/24 19:46 Oxygen Delivery Nasal Cannula 10/04/24 19:46 Oxygen Flow Rate 5 10/04/24 19:46 Temperature 98 F 10/04/24 21:03 Pulse Rate 91 10/04/24 23:50 Respiratory Rate 14 10/04/24 23:50 Blood Pressure 139/70 10/04/24 23:50 Pulse Oximetry 96 10/04/24 23:50 Oxygen Delivery Nasal Cannula 10/04/24 21:03 Oxygen Flow Rate 3 10/04/24 21:03 MDM - SOB/Dyspnea MDM Narrative Medical decision making narrative: 79-year-old male with history of chronic hypoxic respiratory failure on 3 L nasal cannula presents to the emergency department for exertional dyspnea and need to increase his oxygen to 4-5 L while exerting himself for the past day. Vitals with tachypnea of 24. He is afebrile nontoxic appearing upon my evaluation the patient is satting 96% on 3 L nasal cannula speaking in full sentences with no tachypnea. Exam significant for rales in the lower lung short. He does not appear to be volume overloaded. CBC with leukocytosis of 11.1 and chronic anemia with a hemoglobin of 11. Chemistries are largely unremarkable. BNP is within normal limits at 296. COVID, flu RSV are negative. ABG shows normal pH is 7.434, pCO2 41, PO2 of 74.6 and bicarb of 26.8. Mag is normal at 2.2. EKG shows sinus rhythm with a first-degree AV block, MD interval is at 2:13 a.m., normal QRS duration, normal QTC, incomplete right bundle-branch block, no ST elevations or depressions. Troponin is undetectable. Chest x-ray shows mild pulmonary vascular congestion with an increased right-sided pleural effusion when compared to previous exam 2 weeks earlier. Patient family updated on workup. He received an hour long DuoNeb, 125mg of Solu-Medrol and 40 mg of IV Lasix. Upon re-evaluation the patient is feeling much better and is requesting to be discharged home. Lung sounds have improved. He is ambulatory in the ED on his baseline 3 L nasal cannula satting at 90%. Plan to treat as a COPD exacerbation with Augmentin, albuterol inhaler and prednisone. Advised also continue his Lasix and follow-up closely with his PCP. Strict ED return precautions discussed. He is agreeable to plan and verbalized understanding. Discharged in stable condition. Lab Data 10/04/24 20:28 10/04/24 20:28 Labs: Lab Results 10/04/24 10/04/24 10/04/24 Range/Units 20:28 20:28 20:28 WBC 11.1 H (4.5-10.0) K/mm3 RBC 3.48 L (4.6-6.20) M/mm3 Hgb 11.0 L (14.0-18.0) g/dL Hct 34.3 L (42.0-52.0) % MCV 98.6 (80-100) fl MCH 31.6 (26-34) pg MCHC 32.1 (32-36) g/dl RDW 14.8 H (11.5-14.5) % Plt Count 223 (150-375) k/mm3 MPV 10.6 H (7.4-10.4) fl Immature Gran % (Auto) 0.5 (0-0.5) % Neut % (Auto) 79.3 H (45.5-73.1) % Lymph % (Auto) 9.9 L (18.3-44.2) % [place] % (Auto) 6.8 (2.6-8.5) % Eos % (Auto) 3.2 (0-4.4) % Baso % (Auto) 0.3 (0.2-1.2) % Lymph # (Auto) 1.10 (0.9-3.2) K/mm3 [place] # (Auto) 0.8 H (0.1-0.6) K/mm3 Eos # (Auto) 0.4 H (0-0.3) K/mm3 Baso # (Auto) 0.0 (0.0-0.1) K/mm3 Abs Immat Gran (auto) 0.05 H (0.00-0.031) K/mm3 Absolute Neuts (auto) 8.8 H (1.3-6.7) K/mm3 Absolute Nucleated RBC 0.000 (0.0-0.012) K/mm3 Nucleated RBC % 0.0 (0.0-0.2) % PT 15.3 H (11.1-14.7) Seconds INR 1.2 APTT 39.3 H (22.3-36.8) Seconds Sodium Cancelled 140 Potassium Cancelled 4.2 Chloride Cancelled Carbon Dioxide Anion Gap BUN Creatinine Estim Creat Clear Calc Estimated GFR Glucose Calcium Magnesium (1.6-2.3) mg/dL Total Bilirubin AST ALT Alkaline Phosphatase Troponin I (0.000-0.034) ng/mL NT-Pro-B Natriuret Pep (19.9-100) pg/mL Total Protein Albumin Influenza A (RT-PCR) (Negative) Influenza B (RT-PCR) (Negative) RSV (RT-PCR) (Negative) SARS-CoV-2 RNA (RT-PCR) (Negative) 10/04/24 10/04/24 10/04/24 Range/Units 20:28 20:28 20:28 WBC (4.5-10.0) K/mm3 RBC (4.6-6.20) M/mm3 Hgb (14.0-18.0) g/dL Hct (42.0-52.0) % MCV (80-100) fl MCH (26-34) pg MCHC (32-36) g/dl RDW (11.5-14.5) % Plt Count (150-375) k/mm3 MPV (7.4-10.4) fl Immature Gran % (Auto) (0-0.5) % Neut % (Auto) (45.5-73.1) % Lymph % (Auto) (18.3-44.2) % [place] % (Auto) (2.6-8.5) % Eos % (Auto) (0-4.4) % Baso % (Auto) (0.2-1.2) % Lymph # (Auto) (0.9-3.2) K/mm3 [place] # (Auto) (0.1-0.6) K/mm3 Eos # (Auto) (0-0.3) K/mm3 Baso # (Auto) (0.0-0.1) K/mm3 Abs Immat Gran (auto) (0.00-0.031) K/mm3 Absolute Neuts (auto) (1.3-6.7) K/mm3 Absolute Nucleated RBC (0.0-0.012) K/mm3 Nucleated RBC % (0.0-0.2) % PT (11.1-14.7) Seconds INR APTT (22.3-36.8) Seconds Sodium Potassium Chloride 103 Carbon Dioxide Cancelled 30 Anion Gap Cancelled 7 BUN Cancelled Creatinine Estim Creat Clear Calc Estimated GFR Glucose Calcium Magnesium (1.6-2.3) mg/dL Total Bilirubin AST ALT Alkaline Phosphatase Troponin I (0.000-0.034) ng/mL NT-Pro-B Natriuret Pep (19.9-100) pg/mL Total Protein Albumin Influenza A (RT-PCR) (Negative) Influenza B (RT-PCR) (Negative) RSV (RT-PCR) (Negative) SARS-CoV-2 RNA (RT-PCR) (Negative) 10/04/24 10/04/24 10/04/24 Range/Units 20:28 20:28 20:28 WBC (4.5-10.0) K/mm3 RBC (4.6-6.20) M/mm3 Hgb (14.0-18.0) g/dL Hct (42.0-52.0) % MCV (80-100) fl MCH (26-34) pg MCHC (32-36) g/dl RDW (11.5-14.5) % Plt Count (150-375) k/mm3 MPV (7.4-10.4) fl Immature Gran % (Auto) (0-0.5) % Neut % (Auto) (45.5-73.1) % Lymph % (Auto) (18.3-44.2) % [place] % (Auto) (2.6-8.5) % Eos % (Auto) (0-4.4) % Baso % (Auto) (0.2-1.2) % Lymph # (Auto) (0.9-3.2) K/mm3 [place] # (Auto) (0.1-0.6) K/mm3 Eos # (Auto) (0-0.3) K/mm3 Baso # (Auto) (0.0-0.1) K/mm3 Abs Immat Gran (auto) (0.00-0.031) K/mm3 Absolute Neuts (auto) (1.3-6.7) K/mm3 Absolute Nucleated RBC (0.0-0.012) K/mm3 Nucleated RBC % (0.0-0.2) % PT (11.1-14.7) Seconds INR APTT (22.3-36.8) Seconds Sodium Potassium Chloride Carbon Dioxide Anion Gap BUN 38 H D Creatinine Cancelled 1.20 Estim Creat Clear Calc Cancelled 47 Estimated GFR Cancelled Glucose Calcium Magnesium (1.6-2.3) mg/dL Total Bilirubin AST ALT Alkaline Phosphatase Troponin I (0.000-0.034) ng/mL NT-Pro-B Natriuret Pep (19.9-100) pg/mL Total Protein Albumin Influenza A (RT-PCR) (Negative) Influenza B (RT-PCR) (Negative) RSV (RT-PCR) (Negative) SARS-CoV-2 RNA (RT-PCR) (Negative) 10/04/24 10/04/24 10/04/24 Range/Units 20:28 20:28 20:28 WBC (4.5-10.0) K/mm3 RBC (4.6-6.20) M/mm3 Hgb (14.0-18.0) g/dL Hct (42.0-52.0) % MCV (80-100) fl MCH (26-34) pg MCHC (32-36) g/dl RDW (11.5-14.5) % Plt Count (150-375) k/mm3 MPV (7.4-10.4) fl Immature Gran % (Auto) (0-0.5) % Neut % (Auto) (45.5-73.1) % Lymph % (Auto) (18.3-44.2) % [place] % (Auto) (2.6-8.5) % Eos % (Auto) (0-4.4) % Baso % (Auto) (0.2-1.2) % Lymph # (Auto) (0.9-3.2) K/mm3 [place] # (Auto) (0.1-0.6) K/mm3 Eos # (Auto) (0-0.3) K/mm3 Baso # (Auto) (0.0-0.1) K/mm3 Abs Immat Gran (auto) (0.00-0.031) K/mm3 Absolute Neuts (auto) (1.3-6.7) K/mm3 Absolute Nucleated RBC (0.0-0.012) K/mm3 Nucleated RBC % (0.0-0.2) % PT (11.1-14.7) Seconds INR APTT (22.3-36.8) Seconds Sodium Potassium Chloride Carbon Dioxide Anion Gap BUN Creatinine Estim Creat Clear Calc Estimated GFR 58 L Glucose Cancelled 131 H Calcium Cancelled 8.9 Magnesium (1.6-2.3) mg/dL Total Bilirubin Cancelled AST ALT Alkaline Phosphatase Troponin I (0.000-0.034) ng/mL NT-Pro-B Natriuret Pep (19.9-100) pg/mL Total Protein Albumin Influenza A (RT-PCR) (Negative) Influenza B (RT-PCR) (Negative) RSV (RT-PCR) (Negative) SARS-CoV-2 RNA (RT-PCR) (Negative) 10/04/24 10/04/24 10/04/24 Range/Units 20:28 20:28 20:28 WBC (4.5-10.0) K/mm3 RBC (4.6-6.20) M/mm3 Hgb (14.0-18.0) g/dL Hct (42.0-52.0) % MCV (80-100) fl MCH (26-34) pg MCHC (32-36) g/dl RDW (11.5-14.5) % Plt Count (150-375) k/mm3 MPV (7.4-10.4) fl Immature Gran % (Auto) (0-0.5) % Neut % (Auto) (45.5-73.1) % Lymph % (Auto) (18.3-44.2) % [place] % (Auto) (2.6-8.5) % Eos % (Auto) (0-4.4) % Baso % (Auto) (0.2-1.2) % Lymph # (Auto) (0.9-3.2) K/mm3 [place] # (Auto) (0.1-0.6) K/mm3 Eos # (Auto) (0-0.3) K/mm3 Baso # (Auto) (0.0-0.1) K/mm3 Abs Immat Gran (auto) (0.00-0.031) K/mm3 Absolute Neuts (auto) (1.3-6.7) K/mm3 Absolute Nucleated RBC (0.0-0.012) K/mm3 Nucleated RBC % (0.0-0.2) % PT (11.1-14.7) Seconds INR APTT (22.3-36.8) Seconds Sodium Potassium Chloride Carbon Dioxide Anion Gap BUN Creatinine Estim Creat Clear Calc Estimated GFR Glucose Calcium Magnesium (1.6-2.3) mg/dL Total Bilirubin 0.4 AST Cancelled 30 ALT Cancelled 15 Alkaline Phosphatase Cancelled Troponin I (0.000-0.034) ng/mL NT-Pro-B Natriuret Pep (19.9-100) pg/mL Total Protein Albumin Influenza A (RT-PCR) (Negative) Influenza B (RT-PCR) (Negative) RSV (RT-PCR) (Negative) SARS-CoV-2 RNA (RT-PCR) (Negative) 10/04/24 10/04/24 10/04/24 Range/Units 20:28 20:28 20:28 WBC (4.5-10.0) K/mm3 RBC (4.6-6.20) M/mm3 Hgb (14.0-18.0) g/dL Hct (42.0-52.0) % MCV (80-100) fl MCH (26-34) pg MCHC (32-36) g/dl RDW (11.5-14.5) % Plt Count (150-375) k/mm3 MPV (7.4-10.4) fl Immature Gran % (Auto) (0-0.5) % Neut % (Auto) (45.5-73.1) % Lymph % (Auto) (18.3-44.2) % [place] % (Auto) (2.6-8.5) % Eos % (Auto) (0-4.4) % Baso % (Auto) (0.2-1.2) % Lymph # (Auto) (0.9-3.2) K/mm3 [place] # (Auto) (0.1-0.6) K/mm3 Eos # (Auto) (0-0.3) K/mm3 Baso # (Auto) (0.0-0.1) K/mm3 Abs Immat Gran (auto) (0.00-0.031) K/mm3 Absolute Neuts (auto) (1.3-6.7) K/mm3 Absolute Nucleated RBC (0.0-0.012) K/mm3 Nucleated RBC % (0.0-0.2) % PT (11.1-14.7) Seconds INR APTT (22.3-36.8) Seconds Sodium Potassium Chloride Carbon Dioxide Anion Gap BUN Creatinine Estim Creat Clear Calc Estimated GFR Glucose Calcium Magnesium (1.6-2.3) mg/dL Total Bilirubin AST ALT Alkaline Phosphatase 109 Troponin I < 0.012 (0.000-0.034) ng/mL NT-Pro-B Natriuret Pep 296 H Cancelled (19.9-100) pg/mL Total Protein Cancelled 7.0 Albumin Cancelled Influenza A (RT-PCR) (Negative) Influenza B (RT-PCR) (Negative) RSV (RT-PCR) (Negative) SARS-CoV-2 RNA (RT-PCR) (Negative) 10/04/24 10/04/24 Range/Units 20:28 21:30 WBC (4.5-10.0) K/mm3 RBC (4.6-6.20) M/mm3 Hgb (14.0-18.0) g/dL Hct (42.0-52.0) % MCV (80-100) fl MCH (26-34) pg MCHC (32-36) g/dl RDW (11.5-14.5) % Plt Count (150-375) k/mm3 MPV (7.4-10.4) fl Immature Gran % (Auto) (0-0.5) % Neut % (Auto) (45.5-73.1) % Lymph % (Auto) (18.3-44.2) % [place] % (Auto) (2.6-8.5) % Eos % (Auto) (0-4.4) % Baso % (Auto) (0.2-1.2) % Lymph # (Auto) (0.9-3.2) K/mm3 [place] # (Auto) (0.1-0.6) K/mm3 Eos # (Auto) (0-0.3) K/mm3 Baso # (Auto) (0.0-0.1) K/mm3 Abs Immat Gran (auto) (0.00-0.031) K/mm3 Absolute Neuts (auto) (1.3-6.7) K/mm3 Absolute Nucleated RBC (0.0-0.012) K/mm3 Nucleated RBC % (0.0-0.2) % PT (11.1-14.7) Seconds INR APTT (22.3-36.8) Seconds Sodium Potassium Chloride Carbon Dioxide Anion Gap BUN Creatinine Estim Creat Clear Calc Estimated GFR Glucose Calcium Magnesium 2.2 (1.6-2.3) mg/dL Total Bilirubin AST ALT Alkaline Phosphatase Troponin I < 0.012 (0.000-0.034) ng/mL NT-Pro-B Natriuret Pep (19.9-100) pg/mL Total Protein Albumin 3.8 Influenza A (RT-PCR) Negative (Negative) Influenza B (RT-PCR) Negative (Negative) RSV (RT-PCR) Negative (Negative) SARS-CoV-2 RNA (RT-PCR) Negative (Negative) ABG Data ABG results: 10/04/24 22:04 Puncture Site Right radial ABG pH 7.434 ABG pCO2 41.0 ABG pO2 74.6 L ABG PO2/FiO2 Ratio 2.66 ABG HCO3 26.8 H ABG O2 Saturation 95.4 ABG O2 Content 14.6 L ABG Base Excess 2.4 A-a Gradient 76.7 Oxyhemoglobin 93.9 Total Hemoglobin 11.0 L O2 Delivery Device Nasal cannula O2 Liters/Min 2.0 FiO2 28 Discharge Plan Discharge Clinical Impression: COPD exacerbation, Pleural effusion Patient Disposition: Home, Self-Care Condition: Stable Instructions: Antibiotic Form, COPD (Chronic Obstructive Pulmonary Disease) (DC), Pleural Effusion (DC) Additional Instructions: Your evaluated in the emergency department for difficulty breathing. Your chest x-ray shows some fluid on her lungs. He received IV Lasix and steroids as well as an inhaler with improvement. I suspect her symptoms are secondary to COPD and possibly some CHF overlap. Please continue taking Lasix as directed and take the antibiotics, steroids and use the inhaler as directed. Follow-up with your primary care provider. Return to the emergency department if you develop worsening shortness of breath, you to increase her oxygen again, chest pain, fever, or other concerning symptoms. Prescriptions: New amoxicillin-pot clavulanate 875-125 mg tablet 1 tablet PO Q12H Qty: 14 0RF prednisone 20 mg tablet 40 mg PO DAILY Qty: 10 0RF albuterol sulfate 90 mcg/actuation HFA aerosol inhaler 1 inh inhalation QID PRN (Reason: shortness of breath or wheezing) Qty: 6.7 0RF No Action Mucinex 1,200 mg tablet extended release 12hr 1,200 mg PO BID PRN (Reason: cough) nitroglycerin 0.3 mg tablet, sublingual 0.3 mg sublingual Q5M PRN (Reason: Chest Pain) Rx Instructions: do not exceed 3 doses per episode finasteride [Proscar] 5 mg tablet 5 mg PO DAILY acetaminophen [Tylenol Extra Strength] 500 mg tablet 500 mg PO Q6H PRN (Reason: Pain) multivitamin Tablet 1 tablet PO DAILY ipratropium-albuterol 0.5 mg-3 mg(2.5 mg base)/3 mL solution for nebulization 3 ml inhalation Q8H PRN (Reason: shortness of breath or wheezing) Qty: 180 5RF triamcinolone acetonide 0.1 % cream 1 applic topical BID Qty: 30 0RF carvedilol 12.5 mg tablet 12.5 mg PO BID (DME) nebulizer and compressor Device See Rx Instructions .Route Qty: 1 0RF Rx Instructions: As directed (DME) nebulizer accessories Kit See Rx Instructions .Route Qty: 1 0RF Rx Instructions: As directed Zyrtec 10 mg Capsule 10 mg PO DAILY PRN (Reason: allergies) polyethylene glycol 3350 [Miralax] 17 gram Powder In Packet 17 g PO QAM PRN (Reason: Constipation) Qty: 30 0RF simethicone [Gas-X Extra Strength] 125 mg Capsule 125 mg PO QID Qty: 120 0RF aspirin 81 mg Tablet,Delayed Release (Dr/Ec) 81 mg PO DAILY Qty: 90 0RF fenofibrate 160 mg tablet 160 mg PO DAILY Qty: 90 2RF tamsulosin 0.4 mg capsule 0.4 mg PO DAILY Qty: 90 2RF atorvastatin 80 mg tablet 80 mg PO DAILY Qty: 90 2RF losartan 50 mg tablet 50 mg PO DAILY Qty: 90 3RF sulindac 200 mg tablet 200 mg PO BID Qty: 180 1RF Linzess 290 mcg capsule See Rx Instructions .ROUTE .COMPLEX Qty: 90 3RF Dose Instruction: TAKE 1 CAPSULE BY MOUTH DAILY Rx Instructions: TAKE 1 CAPSULE BY MOUTH DAILY esomeprazole magnesium 20 mg capsule,delayed release(DR/EC) See Rx Instructions .ROUTE .COMPLEX Qty: 90 3RF Dose Instruction: TAKE 1 CAPSULE BY MOUTH DAILY Rx Instructions: TAKE 1 CAPSULE BY MOUTH DAILY furosemide 40 mg tablet 40 mg PO DAILY Qty: 90 1RF sertraline 50 mg tablet 50 mg PO DAILY Qty: 90 3RF Breztri Aerosphere 160-9-4.8 mcg/actuation HFA aerosol inhaler See Rx Instructions .ROUTE .COMPLEX Qty: 10.7 5RF Dose Instruction: INHALE 2 PUFFS BY MOUTH TWICE DAILY. RINSE AND SPIT AFTER USE Rx Instructions: INHALE 2 PUFFS BY MOUTH TWICE DAILY. RINSE AND SPIT AFTER USE trazodone 100 mg tablet 100 mg PO HS Qty: 90 1RF baclofen 10 mg tablet 10 mg PO DAILY PRN (Reason: Spasms) Qty: 30 2RF tobramycin-dexamethasone 0.3-0.1 % drops,suspension 1 drp RIGHT EYE QID Qty: 10 0RF levofloxacin 500 mg tablet 500 mg PO DAILY Qty: 10 0RF etodolac 500 mg tablet 500 mg PO BID Qty: 60 0RF bupropion HCl 150 mg tablet sustained-release 12 hr 150 mg PO BID Qty: 180 2RF morphine 30 mg tablet extended release 30 mg PO QAM Qty: 30 0RF albuterol sulfate 90 mcg/actuation HFA aerosol inhaler 2 puff INHALATION Q4H PRN (Reason: Shortness Of Breath Or Wheezing) Qty: 8.5 5RF Follow-up/Referrals: Naveed Mcintosh MD [Primary Care Provider] -
[2024-10-04 21:57] LABS: Troponin I < 0.012 ng/mL (0.000-0.034)
[2024-10-04] MEDS: methylPREDNISolone SOD SUCC 125 MG VIAL IV PUSH (21:59)
[2024-10-04] MEDS: FUROSEMIDE INJ 40 MG/4 ML VIAL IV PUSH (21:59)
[2024-10-04] MEDS: IPRATROPIUM 0.5 MG/ALBUTEROL SULFATE 2.5 MG AMPUL.NEB 3 ML INHALATION ×3 (22:04→22:05)
[2024-10-04 22:12] LABS: Influenza A QL RT-PCR Negative (Negative); Influenza B QL RT-PCR Negative (Negative); RSV RNA, RT-PCR Negative (Negative); SARS-CoV-2 RNA PCR Negative (Negative)
[2024-10-04 22:13] LABS: Alveolar/Arterial O2 Gradient 76.7 mmHg; Base Excess ABG 2.4 mEq/l (+/-2.0); Fractional Inspired Oxygen 28 %; HCO3 ABG 26.8 mEq/l (22.0-26.0); Oxygen Content ABG 14.6 %vol (16.0-22.0); Oxygen Saturation ABG 95.4 % (95.0-100.0); Oxyhemoglobin 93.9 % THb (90.0-100.0); PO2 ABG 74.6 mmHg (80.0-100.0); PO2 FiO2 Ratio Arterial Blood 2.66 %; pH ABG 7.434 (7.350-7.450)
[2024-10-04 22:15] LABS: Device NASAL CANNULA; Modified Allen's Test Pass; Site Drawn RIGHT RADIAL
[2024-10-04 22:16] LABS: Magnesium 2.2 mg/dL (1.6-2.3)
[2024-10-04 22:23] LABS: Partial Thromboplastin Time 39.3 Seconds (22.3-36.8)
--- NOTE | 2024-10-04 23:57 | PC.NURSE ---
AMBULATED WITH PT FROM ROOM TO NURSES STATION WITH SPO2 MONITOR ON AND HIS HOME O2 AT 3L VIA NASAL CANNULA. PT MAINTAINED 90% SPO2 WHILE UP AMBULATING. PT STATES HE FEELS LIKE HE CAN GO HOME. PT AMBULATED STEADILY WITH SINGLE POST CANE.
[2024-10-05 00:15] VITALS: O2SAT 99
== END 2024-10-05 00:28 | disposition home or self-care (01) ==
PROVIDERS: Student in an Organized Health Care Education/Training Program; Emergency Provider Physician Assistant; PCP Family Medicine Adolescent Medicine
DX: J44.1 Chronic obstructive pulmonary disease with (acute) exacerbation (principal); J90 Pleural effusion, not elsewhere classified; K21.9 Gastro-esophageal reflux disease without esophagitis; E78.5 Hyperlipidemia, unspecified; I50.9 Heart failure, unspecified; J96.11 Chronic respiratory failure with hypoxia; Z99.81 Dependence on supplemental oxygen; N18.30 Chronic kidney disease, stage 3 unspecified; I13.0 Hypertensive heart and chronic kidney disease with heart failure and stage 1 through stage 4 chronic kidney disease, or unspecified chronic kidney disease; E55.9 Vitamin D deficiency, unspecified; Z87.891 Personal history of nicotine dependence; Z20.822 Contact with and (suspected) exposure to COVID-19
CPT/HCPCS: 36415; 36600; 71046; 80053; 82805; 83735; 83880; 84484; 85018; 85025; 85610; 85730; 87637; 93005; 94640; 96374; 96375; 99284; J1940; J2919

== ENCOUNTER 2024-11-04 10:27 | Observation (INO) | payer MEDICARE, MEDICAID, SELFPAY ==
[2024-11-04] VITALS (17 sets, daily range): BP systolic 107–141; BP diastolic 43–95; PULSE 66–95; RESP 13–20; TEMP 36.4–37.5; O2SAT 93–100; BMI 26.9
--- NOTE | ~2024-11-04 | CT_ITS ---
EXAMINATION: CT brain wo con DATE: 11/04/2024 14:14 INDICATION: Altered mental status TECHNIQUE: Computed tomography (CT) of the head was performed without intravenous contrast. Sagittal and coronal reconstructions were performed. The mA was adjusted according to patient size. Iterative reconstruction technique was employed. The dose-length product was 605.33 mGy-cm. COMPARISON: head CT dated 06/13/2023 FINDINGS: No acute intracranial hemorrhage, acute infarction or abnormal extra axial fluid collection. There is mild scattered white matter hypoattenuation consistent with chronic small vessel ischemic disease. Ventricles are normal and symmetric. No mass/mass effect. Chronic left mastoid effusion. The orbits a nd paranasal sinuses are normal. Postoperative change at the right mandibular condyle with chronic an terior dislocation of the right temporomandibular joint. IMPRESSION: 1. Mild scattered white matter hypoattenuation consistent with chronic small vessel ischemic disease. No acute intracranial process. Reviewed, dictated and finalized at location A. PING AND RECEIVING MATERIAL HANDLER IMPRESSION: 1. Mild scattered white matter hypoattenuation consistent with chronic small ve ssel ischemic disease. No acute intracranial process.
--- NOTE | ~2024-11-04 | XR_ITS ---
EXAMINATION: XR chest 2V DATE: 11/04/2024 12:27 INDICATION: Shortness of breath. Abnormal lung zones TECHNIQUE: frontal and lateral views of the chest were obtained. COMPARISON: Chest radiograph dated 10/04/2024 FINDINGS: Increased interstitial pattern in the bilateral lower lung zones with airspace opacities at the poste rior lung bases including a small right pleural effusion. No pneumothorax. The cardiomediastinal silh [place] is normal. Mild thoracic spondylosis with bridging osteophytes at multiple levels consistent w ith diffuse idiopathic skeletal hyperostosis (DISH). IMPRESSION: 1. Interstitial and airspace opacities in bilateral lower lung zones which could represent mild pulmo nary edema or pneumonia. 2. Small right pleural effusion. Reviewed, dictated and finalized at location A. [employer] CONSULTANT IMPRESSION: 1. Interstitial and airspace opacities in bilateral lower lung zones which coul d represent mild pulmonary edema or pneumonia. 2. Small right pleural effusion.
--- NOTE | 2024-11-04 11:43 | ECG_ITS ---
Test Date: 2024-11-04 11:48:25 Measurements Intervals [place] Rate: 75 P: 39 HI: 190 QRS: -26 QRSD: 109 T: 44 QT: 415 QTc: 465 Interpretive Statements SINUS RHYTHM POSSIBLE LEFT ATRIAL ENLARGEMENT [-0.1mV P-WAVE IN V1/V2] BORDERLINE LEFT AXIS DEVIATION [QRS AXIS < -20] INCOMPLETE RIGHT BUNDLE BRANCH BLOCK [90+ ms QRS DURATION, TERMINAL R IN V1/V2, 40+ ms S IN I/aVL/V4/V5/V6] Compared to ECG 10/04/2024 21:37:05 No significant changes Electronically Signed On 11-04-2024 18:44:34 EMBEDDED SOFTWARE ENGINEER by Benito Shelton M.D.
[2024-11-04 12:09] LABS: Basophils Percent Auto 0.1 % (0.2-1.2); Eosinophils Absolute Auto 0.1 K/mm3 (0-0.3); Eosinophils Percent Auto 0.9 % (0-4.4); Hematocrit 31.9 % (42.0-52.0); Hemoglobin 10.3 g/dL (14.0-18.0); Immature Granulocyte Absolute 0.04 K/mm3 (0.00-0.031); Immature Granulocyte Percent A 0.4 % (0-0.5); Lymphocytes Absolute Auto 0.92 K/mm3 (0.9-3.2); Lymphocytes Percent Auto 9.4 % (18.3-44.2); Mean Corpuscular HGB Conc 32.3 g/dl (32-36); Mean Corpuscular Hemoglobin 32.1 pg (26-34); Mean Corpuscular Volume 99.4 fl (80-100); Mean Platelet Volume 11.2 fl (7.4-10.4); Monocytes Absolute Auto 1.2 K/mm3 (0.1-0.6); Monocytes Percent Auto 11.7 % (2.6-8.5); Neutrophils Absolute Auto 7.6 K/mm3 (1.3-6.7); Neutrophils Percent Auto 77.5 % (45.5-73.1); Platelet Count Result 216 k/mm3 (150-375); Red Blood Count 3.21 M/mm3 (4.6-6.20); Red Cell Distribution Width 14.6 % (11.5-14.5); White Blood Count 9.8 K/mm3 (4.5-10.0)
[2024-11-04 12:20] LABS: Alanine Aminotransferase 26 U/L (6-50); Albumin Level 3.7 g/dL (3.5-5.1); Alkaline Phosphatase 90 U/L (38-126); Anion Gap 5 mmol/L (4-12); Aspartate Amino Transferase 43 U/L (17-59); Bilirubin,Total 1.1 mg/dL (0.2-1.3); Blood Urea Nitrogen 39 mg/dL (9-20); Calcium 9.2 mg/dL (8.4-10.2); Carbon Dioxide 26 mmol/L (22-30); Chloride 104 mmol/L (98-107); Estimated CRCL calculation 38 ml/min; Estimated Glomerular Filt Rate 45; Glucose 121 mg/dL (65-110); Potassium 4.1 mmol/L (3.4-5.0); Sodium 135 mmol/L (137-145)
[2024-11-04 12:45] LABS: Influenza A QL RT-PCR Negative (Negative); Influenza B QL RT-PCR Negative (Negative); RSV RNA, RT-PCR Negative (Negative); SARS-CoV-2 RNA PCR Negative (Negative)
[2024-11-04 13:03] LABS: Lactic Acid Reflex 0.7 mmol/L (0.7-2.0)
--- OUTSIDE RECORDS SUMMARY | 2024-11-04 13:05 | XMS_ITS ---
Author Organization [facility] Address Unknown Problems Problem Status Start Date End Date ZOSTER ENCEPHALITIS (Primary) (B02.0 - ICD-10-CM) ACTI VE 02/06/2023 PRIMARY OSTEOARTHRITIS, LEFT SHOULDER (M19.012 - ICD-10-CM) ACTIVE 02/06/2023 ZOSTER WITHOUT COMPLICATIONS (B02.9 - ICD-10-CM) ACTIV E 02/06/2023 CHRONIC OBSTRUCTIVE PULMONAR Y DISEASE WITH (ACUTE) LOWER RESPIRATORY INFECTION (J44.0 - ICD-10-CM) ACTIVE 02/06/2023 EMPHYSEMA, UNSPECIFIED (J43.9 - ICD-10-CM) ACTIVE 02/06/2023 UNSPECIFIED PROTEIN-CALORIE MALNUTRITION (E46 - ICD-10 -CM) ACTIVE 02/06/2023 SPINAL STENOSIS, LUMBAR TIANNA ON WITHOUT NEUROGENIC CLAUDICATION (M48.061 - ICD-10-CM) ACTIVE 02/06/2023 NONRHEUMATIC AORTIC (VALVE) STENOSIS (I35.0 - ICD-10-C M) ACTIVE 02/06/2023 GASTRO-ESOPHAGEAL REFLUX DIS EASE WITHOUT ESOPHAGITIS (K21.9 - ICD-10-CM) ACTIVE 02/06/2023 ESSENTIAL (PRIMARY) HYPERTENSION (I10 - ICD-10-CM) ACT IVETTE 02/10/2023 HISTORY OF FALLING (Z91.81 - ICD-10-CM) ACTIVE 0 02/06/2023 ISCHEMIC CARDIOMYOPATHY (I25.5 - ICD-10-CM) ACTIVE 02/06/2023 OTHER ABNORMALITIES OF GAIT AND MOBILITY (R26.89 - ICD-10-CM) ACTIVE 02/06/2023 MUSCLE WEAKNESS (GENERALIZED) (M62.81 - ICD-10-CM) ACT IVETTE 02/06/2023 COGNITIVE COMMUNICATION DEFICIT (R41.841 - ICD-10-CM) ACTIVE 02/06/2023 ALTERED MENTAL STATUS, UNSPECIFIED (R41.82 - ICD-10-CM ) ACTIVE 02/06/2023 ACUTE KIDNEY FAILURE, UNSPECIFIED (N17.9 - ICD-10-CM) ACTIVE 02/06/2023 HEART FAILURE, UNSPECIFIED (I50.9 - ICD-10-CM) ACTIVE 02/06/2023 Results * TIQ-SPECIMEN MISLABELED Performed by: [address], [place] [id number] Component Value Range Date TEST NAME . 03/11/2023 03:2 4 pm EDT PROBLEM: SPECIMEN MISLABELED 03/11/20 03:24 pm EDT RESOLUTION: . 03/11/2023 03:2 4 pm EDT LAB WILL REDRAW (DATE): SEE NOTES 02/21 03:24 pm EDT * CBC W/DIFF Performed by: [address], [place] [id number] Component Value Range Date NUCLEATED RBC 0.1 NRBC/100 WBC <1.0 02/13/2023 01:59 pm EDT * CMP-COMPREHENSIVE METABOLIC PNL Performed by: [address], [place] [id number] Component Value Range Date CREATININE 1.6 mg/dL 0.7-1.3 02/13/2023 01:5 9 pm EDT GLUCOSE 85 02/13/2023 01:5 9 pm EDT CALCIUM 8.7 mg/dL 8.6-10.3 02/13/2023 01:5 9 pm EDT BILIRUBIN, TOTAL 1.0 mg/dL 0.2-1.2 02/13/2023 01:59 pm EDT * GLYCO-HGBA1C Performed by: [address], [place] [id number] Component Value Range Date eAG (Mean Glucose) 103 mg/dL <136 01:59 pm EDT GLYCOHEMOGLOBIN-HGBA1C 5.2 % 4.1-6.1 02/13 01:59 pm EDT * Individual Tests: CMP-COMPREHENSIVE METABOLIC PNL / GLYCO-HGBA1C / CBC W/DIFF / TSH 3-UL / VITAMIN D 25-OH TOTAL Performed by: [address], [place] [id number] Component Value Range Date VITAMIN D, 25-OH TOTAL 45 SEE BELOW 02/13 01:59 pm EDT * CMP-COMPREHENSIVE METABOLIC PNL Performed by: [address], [place] [address] Component Value Range Date A/G RATIO 1.3 0.8-2.0 02/13/2023 01:5 9 pm EDT * Individual Tests: CMP-COMPREHENSIVE METABOLIC PNL / GLYCO-HGBA1C / CBC W/DIFF / TSH 3-UL / VITAMIN D 25-OH TOTAL Performed by: [address], [place] [address] Component Value Range Date TSH 3-UL 0.560 uIU/mL 0.340-5.600 02/13/2023 01:5 9 pm EDT * CBC W/DIFF Performed by: [address], [place] [address] Component Value Range Date MPV 11.1 fL 6.5-12.0 02/13/2023 01:5 9 pm EDT HEMOGLOBIN 11.3 g/dL 14.0-18.0 02/13/2023 01:5 9 pm EDT * CMP-COMPREHENSIVE METABOLIC PNL Performed by: [address], [place] [address] Component Value Range Date POTASSIUM 5.5 mEq/L 3.5-5.3 02/13/2023 01:5 9 pm EDT SODIUM 134 mEq/L 136-145 02/13/2023 01:5 9 pm EDT BUN (UREA NITROGEN) 40 mg/dL 7-25 02/14/20 23 01:59 pm EDT CARBON DIOXIDE (CO2) 30 mEq/L 21-33 023 01:59 pm EDT CHLORIDE 96 mEq/L 98-110 02/13/2023 01:5 9 pm EDT * CBC W/DIFF Performed by: [address], [place] [address] Component Value Range Date RBC 3.58 M/cmm 4.00-6.60 02/13/2023 01:5 9 pm EDT MCHC 32.5 g/dL 31.0-36.5 02/13/2023 01:5 9 pm EDT MCH 31.7 pg 26.0-35.0 02/13/2023 01:5 9 pm EDT HEMATOCRIT 34.9 % 42.0-54.0 02/13/2023 01:5 9 pm EDT WBC 7.7 K/cmm 4.5-10.8 02/13/2023 01:5 9 pm EDT * CMP-COMPREHENSIVE METABOLIC PNL Performed by: [address], [place] [id number] Component Value Range Date ALT (SGPT) 21 IU/L 4-55 02/13/2023 01:5 9 pm EDT * CBC W/DIFF Performed by: [address], [place] [address] Component Value Range Date PLATELET 156 K/cmm 150-450 02/13/2023 01:5 9 pm EDT * CMP-COMPREHENSIVE METABOLIC PNL Performed by: [address], [place] [id number] Component Value Range Date AST (SGOT) 24 IU/L 4-40 02/13/2023 01:5 9 pm EDT ALBUMIN 3.0 g/dL 3.5-5.5 02/13/2023 01:5 9 pm EDT PROTEIN, TOTAL 5.4 g/dL 6.0-8.3 02/13/2023 01 :59 pm EDT ALKALINE PHOS 82 IU/L 34-136 02/13/2023 01: 59 pm EDT * CBC W/DIFF Performed by: [address], [place] [id number] Component Value Range Date RDW 13.2 % 11.0-16.0 02/13/2023 01:5 9 pm EDT NEUTROPHILS 57.7 % 40.0-80.0 02/13/2023 01:5 9 pm EDT BASO (ABSOLUTE) 0.10 K/uL 0.00-0.30 02/13/2023 0 1:59 pm EDT * CMP-COMPREHENSIVE METABOLIC PNL Performed by: [address], [place] [id number] Component Value Range Date YLC-UJQ-VMYBLSM 42 mL/min/1.73 m2 >60 02/13/2023 01:59 pm EDT GFR- 51 mL/min/1.73 m2 >60 01:59 pm EDT * CBC W/DIFF Performed by: [address], [address] [id number] Component Value Range Date MCV 97.5 fL 80.0-100.0 02/13/2023 01:5 9 pm EDT LYMPHS (ABSOLUTE) 1.80 K/uL 0.90-5.50 02/13/2023 01:59 pm EDT MONOCYTES 17.1 % 2.0-12.0 02/13/2023 01:5 9 pm EDT LYMPHS 23.5 % 13.0-48.0 02/13/2023 01:5 9 pm EDT BASO 0.8 % 0.0-2.0 02/13/2023 01:5 9 pm EDT EOS 0.9 % 0.0-8.0 02/13/2023 01:5 9 pm EDT NEUTS (ABSOLUTE) 4.40 K/uL 1.50-7.60 02/13/2023 01:59 pm EDT EOS (ABSOLUTE) 0.10 K/uL 0.20-0.80 02/13/2023 01 :59 pm EDT MONOCYTES (ABSOLUTE) 1.30 K/uL 0.15-1.10 023 01:59 pm EDT * CMP-COMPREHENSIVE METABOLIC PNL Performed by: [address], [address] [id number] Component Value Range Date BUN/CREATININE RATIO 25 6-25 023 01:59 pm EDT * URINALYSIS Performed by: [address], [address] [id number] Component Value Range Date NITRITE,UR NEGATIVE NEGATIVE 02/13/2023 10:4 3 am EDT COLOR YELLOW YELLOW 02/13/2023 10:4 3 am EDT EPITHELIAL CELL NEGATIVE NEGATIVE 02/13/2023 1 0:43 am EDT HYALINE CASTS NEGATIVE NEGATIVE 02/13/2023 10: 43 am EDT KETONES,UR NEGATIVE NEGATIVE 02/13/2023 10:4 3 am EDT BACTERIA,UR NEGATIVE NEGATIVE 02/13/2023 10:4 3 am EDT PH, URINE 6.0 5.0-8.5 02/13/2023 10:4 3 am EDT BILIRUBIN,UR NEGATIVE NEGATIVE 02/13/2023 10:4 3 am EDT CLARITY CLEAR CLEAR 02/13/2023 10:4 3 am EDT GLUCOSE,UR NEGATIVE NEGATIVE 02/13/2023 10:4 3 am EDT SPECIFIC GRAVITY 1.014 1.001-1.030 02/13/2023 10:43 am EDT UROBILINOGEN,UR NEGATIVE NEGATIVE 02/13/2023 1 0:43 am EDT LEUKOCYTES,UR NEGATIVE NEGATIVE 02/13/2023 10: 43 am EDT BLOOD,UR NEGATIVE NEGATIVE 02/13/2023 10:4 3 am EDT WBC,UR 3-5 /HPF <6 02/13/2023 10:4 3 am EDT PROTEIN,UR NEGATIVE NEGATIVE 02/13/2023 10:4 3 am EDT RBC,UR 0-2 /HPF <6 02/13/2023 10:4 3 am EDT * Individual Tests: URINALYSIS / CULTURE, URINE Performed by: [place] [address] [facility], [place] [address] [facility] [id number] Component Value Range Date CULTURE, URINE . 02/13/2023 10 :43 am EDT Encounters Encounter Performer Performer Role Encounter Diagnoses Location Date Discharge - Discharged to home or self care - Other - Private home/apt. with home health services [facility] 02/06/2023 03:30 pm EDT - 02/20/2023 11:25 am EDT Immunizations Vaccine Date TB 2 Step Mantoux Skin Test 02/09/2023 0 7:05 pm EDT Social History
--- OUTSIDE RECORDS SUMMARY | 2024-11-04 13:05 | XMS_ITS | Continuity of Care Document ---
Author Organization [facility] Address [address] [place] [address] Phone Care Team Providers Care Supervising Broker Name Role Phone Dante PT, DPT, Te [...] Diagnoses Date Provider Providers Copied on Encounter [facility], [address] [place] [address] [address], [place], [place], [id number], [place] tel:[phone] Joe Low back painOth symptoms and signs involving the musculoskelet al systemAbnorma l postureOther abnormalities of gait and mobility 9 Dante Tiwari. . Referring Provider: Naveed Mcintosh , [address] [place] [address], [place], [address]. tel:[phone] [facility], [id number], tel:[phone] [place] Low back painOth symptoms and signs involving the musculoskelet al systemAbnorma l postureOther abnormalities of gait and mobility Krystlehovidya Starka. . Referring Provider: Naveed Mcintosh , [address] [place] [address], [address]. tel:[phone] [facility], [id number], [place] tel:[phone] [place] Low back painOth symptoms and signs involving the musculoskelet al systemAbnorma l postureOther abnormalities of gait and mobility Krystlehovidya Mcclellan. . Referring Provider: Naveed Mcintosh , [address] [place] [address], [address]. tel:[phone] [facility], [id number], tel:[phone] [place] Low back painOth symptoms and signs involving the musculoskelet al systemAbnorma l postureOther abnormalities of gait and mobility Krystlehoffer Vy. . Referring Provider: Naveed Mcintosh , [address] [place] [address], [address]. tel:[phone] [facility], [id number], tel:[phone] [place] Low back painOth symptoms and signs involving the musculoskelet al systemAbnorma l postureOther abnormalities of gait and mobility Dante Tiwari. . Referring Provider: Naveed Mcintosh , [address] [place] [address], [address]. tel:[phone] [facility], [id number], tel:[phone] [place] Low back painOth symptoms and signs involving the musculoskelet al systemAbnorma l postureOther abnormalities of gait and mobility 0-201 9 Dante Tiwari. . Referring Provider: Naveed Mcintosh , [address] [place] [address], [address]. tel:[phone] [facility] [address], [id number], tel:[phone] [place] Low back painOth symptoms and signs involving the musculoskelet al systemAbnorma l postureOther abnormalities of gait and mobility 7201 9 Dante Tiwari. . Referring Provider: Naveed Mcintosh , [address] [place] [address], [id number]. tel:[phone] [facility] [address], [id number], tel:[phone] [place] Low back painOth symptoms and signs involving the musculoskelet al systemAbnorma l postureOther abnormalities of gait and mobility 5201 9 Rick Mcclellan. . Referring Provider: Naveed Mcintosh , [address] [place] [address], [address]. tel:[phone] Family History Family Member Type Diagnosis Age At Onset No Information Payers Payer name Insurance type Covered libertarian ID Authoriza tion(s) AARP Medicare Complete CI [id number] Social History Type Description Quantity Date Captured [...]
[2024-11-04 13:25] LABS: NT Pro B Type Natriuretic Pept 1200 pg/mL (19.9-100)
[2024-11-04] MEDS: FUROSEMIDE INJ 40 MG/4 ML VIAL 20 MG IV PUSH (13:27)
[2024-11-04] MEDS: TAMSULOSIN HCL 0.4 MG CAPSULE PO (13:30)
[2024-11-04] MEDS: AZITHROMYCIN 500 MG/NS 250 ML 500 MG/250 ML BAG 250 MG IVPB (16:28)
--- NOTE | 2024-11-04 17:19 | ED.SOB ---
HPI - SOB/Dyspnea General Chief Complaint: Shortness of Breath/Dyspnea Stated Complaint: SOB Time Seen by Provider: 11/04/24 11:48 History of Present Illness HPI Narrative: Patient presents with increased shortness of breath, and productive cough for last 1-2 days. Related Data Home Medications ?Medication ?Instructions ?Recorded ?Confirmed ?Last Taken ?Type acetaminophen 500 mg tablet 500 mg PO Q6H PRN Pain 03/18/23 09/19/24 06/13/23 20:55 History (Tylenol Extra Strength) finasteride 5 mg tablet (Proscar) 5 mg PO DAILY 03/18/23 09/19/24 06/16/23 08:05 History multivitamin 1 tablet PO DAILY 03/18/23 09/19/24 06/16/23 08:05 History nitroglycerin 0.3 mg sublingual 0.3 mg sublingual Q5M PRN Chest 03/18/23 09/19/24 Unknown History tablet Pain cetirizine 10 mg capsule (Zyrtec) 10 mg PO DAILY PRN allergies 06/13/23 09/19/24 06/16/23 08:06 History carvedilol 12.5 mg tablet 12.5 mg PO BID 02/25/24 09/19/24 Unknown History guaifenesin 1,200 mg tablet, 1,200 mg PO BID PRN cough 08/11/24 09/19/24 Unknown History extended release 12 hr (Mucinex) Allergies Allergy/AdvReac Type Severity Reaction Status Date / Time clonazepam AdvReac Severe Drowsy Verified 09/19/24 11:22 roflumilast (From Daliresp) AdvReac Severe Diarrhea Verified 09/19/24 11:22 Review of Systems Review of Systems: All systems reviewed & are unremarkable except as noted in HPI and below PMFSH Past Medical History Medical History Abdominal aortic aneurysm, without rupture 02/07 CT Aortic stenosis Mild - Echo 05/15/2022 Atherosclerotic heart disease of [place] coronary artery without angina pectoris Bilateral primary osteoarthritis of knee BPH (benign prostatic hyperplasia) Cancer of lower jaw bone (~1986) Chronic hypoxic respiratory failure, on home oxygen therapy CKD (chronic kidney disease) stage 3, GFR 30-59 ml/min Although patient creatinine is been within normal in the past patient's GFR has been below 59 on most lab values since January 2023 Constipation COPD (chronic obstructive pulmonary disease) Depression Erythema multiforme Essential hypertension Essential tremor GERD (gastroesophageal reflux disease) 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 Herpes encephalitis versus a medication effect History of colon polyps History of poliomyelitis History of tobacco use Hx SBO (~05/2007) Hyperlipidemia Ischemic cardiomyopathy Echocardiogram 09/2021: Mildly reduced left ventricular systolic function EF of 45-50%, grade 1 diastolic dysfunction, inferior wall inferior septal wall basal inferior wall and mid inferior lateral wall hypokinesis with mild left atrial and large Myoclonus Normal colonoscopy 05/07 NSTEMI (non-ST elevated myocardial infarction) (~08/2019) Other chronic pain Polio (~1951) Postherpetic neuralgia Primary osteoarthritis, left shoulder Primary osteoarthritis, right shoulder Restless legs syndrome Spinal stenosis, lumbar region without neurogenic claudication Vitamin D deficiency Surgical History Surgical History H/O colonoscopy with polypectomy H/O rotator cuff surgery Bilateral History of bowel resection Due to obstruction History of colon resection History of coronary artery stent placement X2 History of mandibular surgery 1986 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 Bone removed from right hip for reconstructive surgery Presence of coronary angioplasty implant and graft S/P tonsillectomy and adenoidectomy Family History Family History Mother Diabetes mellitus Acute myocardial infarction Father Colon cancer COPD (chronic obstructive pulmonary disease) Sibling Colon cancer Acute myocardial infarction Lung cancer COPD (chronic obstructive pulmonary disease) Sibling COPD (chronic obstructive pulmonary disease) Sibling Congestive heart failure Sibling Dementia Social History Social History Social History: The patient lives with his son and [id number]. Patient is a . The patient quit smoking in 2018. He also gave up alcohol many years ago. No marijuana or illicit drugs. 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 The patient has 5 biological children and raise 2 other children. Code status: Do not intubate Surrogate decision maker: Smoking packs per day: 1.5 Smoking cigarettes per day: 30.0 Years smoked: 60 Smoking pack-years: 90.00 Smoking status: Former smoker Tobacco type: cigarettes Second hand tobacco smoke exposure: No Alcohol intake: former Substance use: never Substance use type: does not use Other substance usage details: quit alcohol in 2010 Last use: Last alcohol use 2010 Do You Feel Safe in your Home?: Yes Lack of Transportation: No Lack of Food: Never True Current Housing: I Have Housing Concerned About Future Housing: No Difficulty Paying Gas/Electric Bills: No Difficulty Paying for Meds: No Currently Unemployed: No Education: Decline to Answer Difficulty w/ Childcare or Family Care: No Living arrangements: with family 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: retired Gender identity (if verbalized by the patient): Male Sexual Orientation (if Verbalized by the Patient): Straight or Heterosexual Spiritual care concerns: No Agree to blood products: Yes Exam Narrative: EXAMINATION OF ORGAN SYSTEMS/BODY AREAS: Constitutional: Vital signs per nursing GENERAL:[No acute distress, non-toxic appearing.] HEAD: Normal with no signs of head trauma. EYES: EOMI, conjunctiva normal ENT: Tape over nose bridge LUNGS: Coarse lung sounds HEART: [Regular rate and rhythm] ABD: [Soft], [nontender to palpation] EXT: Normal range of motion SKIN: [No rashes or lesions.] NEURO: [Alert and oriented x 3. No gross focal sensory or strength deficits.] PSYCH: Normal affect Course Vital Signs Vital signs: Vital Signs Temperature 97.6 F 11/04/24 10:52 Pulse Rate 77 11/04/24 10:52 Respiratory Rate 19 11/04/24 10:52 Blood Pressure 117/43 L 11/04/24 10:52 Pulse Oximetry 93 11/04/24 10:52 Oxygen Delivery Nasal Cannula 11/04/24 10:52 Oxygen Flow Rate 3 11/04/24 10:52 Temperature 97.8 F 11/04/24 16:33 Pulse Rate 77 11/04/24 15:39 Respiratory Rate 17 11/04/24 15:39 Blood Pressure 127/95 H 11/04/24 15:39 Pulse Oximetry 98 11/04/24 15:39 Oxygen Delivery Nasal Cannula 11/04/24 12:00 Oxygen Flow Rate 2 11/04/24 12:00 MDM - SOB/Dyspnea MDM Narrative Medical decision making narrative: 1) Differential diagnosis: COPD, CHF, pneumonia 2) Comorbidities: CHF, COPD 3) External notes reviewed: Pulmonology note 4) History sources independently obtained from: Patient daughter at bedside 5) Discussion of management with: Hospitalist 6) Independent interpretation of: EKG showing normal sinus rhythm rate 75, DC 190, QRS 109, QTC 465, left-sided deviation, no significant ST elevations depressions 7) Diagnostic tests or therapies considered but not ordered: [] 8) Social determinants of health: [] 9) Shared decision making: Patient history of CHF, recent pneumonia presents here with increased shortness of breath and cough with phlegm, per daughter seems little bit more confused than usual. No labored respirations, BNP is elevated, more than usual, chest x-ray does show likely some fluid and possible pneumonia Treated here with antibiotics and Lasix. Patient initially really wanted to go home so planned for discharge with outpatient management, however after some discussion with patient and daughter at bedside, he would rather stay in the hospital. Discussed with hospitalist for admission. Lab Data 11/04/24 12:11/04/24 12:01 Labs: Lab Results 11/04/24 11/04/24 Range/Units 12:01 12:45 WBC 9.8 (4.5-10.0) K/mm3 RBC 3.21 L (4.6-6.20) M/mm3 Hgb 10.3 L (14.0-18.0) g/dL Hct 31.9 L (42.0-52.0) % MCV 99.4 (80-100) fl MCH 32.1 (26-34) pg MCHC 32.3 (32-36) g/dl RDW 14.6 H (11.5-14.5) % Plt Count 216 (150-375) k/mm3 MPV 11.2 H (7.4-10.4) fl Immature Gran % (Auto) 0.4 (0-0.5) % Neut % (Auto) 77.5 H (45.5-73.1) % Lymph % (Auto) 9.4 L (18.3-44.2) % [place] % (Auto) 11.7 H (2.6-8.5) % Eos % (Auto) 0.9 (0-4.4) % Baso % (Auto) 0.1 L (0.2-1.2) % Lymph # (Auto) 0.92 (0.9-3.2) K/mm3 [place] # (Auto) 1.2 H (0.1-0.6) K/mm3 Eos # (Auto) 0.1 (0-0.3) K/mm3 Baso # (Auto) 0.0 (0.0-0.1) K/mm3 Abs Immat Gran (auto) 0.04 H (0.00-0.031) K/mm3 Absolute Neuts (auto) 7.6 H (1.3-6.7) K/mm3 Absolute Nucleated RBC 0.000 (0.0-0.012) K/mm3 Nucleated RBC % 0.0 (0.0-0.2) % Sodium 135 L (137-145) mmol/L Potassium 4.1 (3.4-5.0) mmol/L Chloride 104 (98-107) mmol/L Carbon Dioxide 26 (22-30) mmol/L Anion Gap 5 (4-12) mmol/L BUN 39 H (9-20) mg/dL Creatinine 1.50 H (0.7-1.3) mg/dL Estim Creat Clear Calc 38 ml/min Estimated GFR 45 L (59 - ) Glucose 121 H (65-110) mg/dL Lactic Acid 0.7 (0.7-2.0) mmol/L Calcium 9.2 (8.4-10.2) mg/dL Total Bilirubin 1.1 (0.2-1.3) mg/dL AST 43 (17-59) U/L ALT 26 (6-50) U/L Alkaline Phosphatase 90 (38-126) U/L NT-Pro-B Natriuret Pep 1200 H (19.9-100) pg/mL Total Protein 7.0 (6.3-8.2) g/dL Albumin 3.7 (3.5-5.1) g/dL Influenza A (RT-PCR) Negative (Negative) Influenza B (RT-PCR) Negative (Negative) RSV (RT-PCR) Negative (Negative) SARS-CoV-2 RNA (RT-PCR) Negative (Negative) Discharge Plan Discharge Clinical Impression: Acute exacerbation of CHF (congestive heart failure), Pneumonia Patient Disposition: Still a Patient Condition: Serious Additional Instructions: Please follow up with your doctor; you can always return for any further issues. Please take the medications as prescribed. Patient Language: [place] Island[place] Prescriptions: New azithromycin 250 mg tablet 250 mg PO DAILY 4 Days Qty: 4 0RF Rx Instructions: start on day 2 of therapy amoxicillin-pot clavulanate 875-125 mg tablet 1 tablet PO Q12H Qty: 10 0RF furosemide [Lasix] 40 mg tablet 40 mg PO DAILY Qty: 7 0RF Rx Instructions: Please take these IN ADDITION to the 40mg of lasix you already currently take daily, for a total of 40 mg of lasix twice a day. No Action Mucinex 1,200 mg tablet extended release 12hr 1,200 mg PO BID PRN (Reason: cough) nitroglycerin 0.3 mg tablet, sublingual 0.3 mg sublingual Q5M PRN (Reason: Chest Pain) Rx Instructions: do not exceed 3 doses per episode finasteride [Proscar] 5 mg tablet 5 mg PO DAILY acetaminophen [Tylenol Extra Strength] 500 mg tablet 500 mg PO Q6H PRN (Reason: Pain) multivitamin Tablet 1 tablet PO DAILY ipratropium-albuterol 0.5 mg-3 mg(2.5 mg base)/3 mL solution for nebulization 3 ml inhalation Q8H PRN (Reason: shortness of breath or wheezing) Qty: 180 5RF triamcinolone acetonide 0.1 % cream 1 applic topical BID Qty: 30 0RF carvedilol 12.5 mg tablet 12.5 mg PO BID (DME) nebulizer and compressor Device See Rx Instructions .Route Qty: 1 0RF Rx Instructions: As directed (DME) nebulizer accessories Kit See Rx Instructions .Route Qty: 1 0RF Rx Instructions: As directed albuterol sulfate 90 mcg/actuation HFA aerosol inhaler 1 inh inhalation QID PRN (Reason: shortness of breath or wheezing) Qty: 6.7 0RF Zyrtec 10 mg Capsule 10 mg PO DAILY PRN (Reason: allergies) polyethylene glycol 3350 [Miralax] 17 gram Powder In Packet 17 g PO QAM PRN (Reason: Constipation) Qty: 30 0RF simethicone [Gas-X Extra Strength] 125 mg Capsule 125 mg PO QID Qty: 120 0RF aspirin 81 mg Tablet,Delayed Release (Dr/Ec) 81 mg PO DAILY Qty: 90 0RF fenofibrate 160 mg tablet 160 mg PO DAILY Qty: 90 2RF losartan 50 mg tablet 50 mg PO DAILY Qty: 90 3RF sulindac 200 mg tablet 200 mg PO BID Qty: 180 1RF Linzess 290 mcg capsule See Rx Instructions .ROUTE .COMPLEX Qty: 90 3RF Dose Instruction: TAKE 1 CAPSULE BY MOUTH DAILY Rx Instructions: TAKE 1 CAPSULE BY MOUTH DAILY esomeprazole magnesium 20 mg capsule,delayed release(DR/EC) See Rx Instructions .ROUTE .COMPLEX Qty: 90 3RF Dose Instruction: TAKE 1 CAPSULE BY MOUTH DAILY Rx Instructions: TAKE 1 CAPSULE BY MOUTH DAILY furosemide 40 mg tablet 40 mg PO DAILY Qty: 90 1RF sertraline 50 mg tablet 50 mg PO DAILY Qty: 90 3RF Breztri Aerosphere 160-9-4.8 mcg/actuation HFA aerosol inhaler See Rx Instructions .ROUTE .COMPLEX Qty: 10.7 5RF Dose Instruction: INHALE 2 PUFFS BY MOUTH TWICE DAILY. RINSE AND SPIT AFTER USE Rx Instructions: INHALE 2 PUFFS BY MOUTH TWICE DAILY. RINSE AND SPIT AFTER USE trazodone 100 mg tablet 100 mg PO HS Qty: 90 1RF baclofen 10 mg tablet 10 mg PO DAILY PRN (Reason: Spasms) Qty: 30 2RF etodolac 500 mg tablet 500 mg PO BID Qty: 60 0RF bupropion HCl 150 mg tablet sustained-release 12 hr 150 mg PO BID Qty: 180 2RF albuterol sulfate 90 mcg/actuation HFA aerosol inhaler 2 puff INHALATION Q4H PRN (Reason: Shortness Of Breath Or Wheezing) Qty: 8.5 5RF tamsulosin 0.4 mg capsule 0.4 mg PO DAILY Qty: 90 3RF morphine 30 mg tablet extended release 30 mg PO QAM Qty: 30 0RF atorvastatin 80 mg tablet 80 mg PO DAILY Qty: 90 0RF lorazepam 0.5 mg tablet 0.5 mg PO BID PRN (Reason: anxiety) Qty: 40 1RF Follow-up/Referrals: Naveed Mcintosh MD [Primary Care Provider] - 2 Days
[2024-11-04] MEDS: LORazepam (*CRX) 0.5 MG TABLET PO (19:30)
--- NOTE | 2024-11-04 20:32 | P.HP_ITS ---
H&P: HPI History of Present Illness Date/Time: 11/04/24 20:32 Chief Complaint: cough Narrative: This is an 79-year-old male with past medical history significant for COPD/emphysema, benign prostatic hyperplasia, gap 5 generalized anxiety disorder, chronic kidney disease, chronic hypoxic respiratory failure on home oxygen, former tobacco use, is chemically cardiomyopathy. patient presents to the emergency room due to a week of worsening cough, sputum production of yellow copious amount of sputum, chills, shortness of breath, poor per orally intake, poor appetite, body aches. Preliminary workup was significant for bilateral lung infiltrates. Patient has been admitted for further evaluation management and treatment. EXAMINATION: XR chest 2V DATE: 11/04/2024 12:27 INDICATION: Shortness of breath. Abnormal lung zones TECHNIQUE: frontal and lateral views of the chest were obtained. COMPARISON: Chest radiograph dated 10/04/2024 FINDINGS: Increased interstitial pattern in the bilateral lower lung zones with airspace opacities at the posterior lung bases including a small right pleural effusion. No pneumothorax. The cardiomediastinal silhouette is normal. Mild thoracic spondylosis with bridging osteophytes at multiple levels consistent with diffuse idiopathic skeletal hyperostosis (DISH). IMPRESSION: 1. Interstitial and airspace opacities in bilateral lower lung zones which could represent mild pulmonary edema or pneumonia. 2. Small right pleural effusion. EXAMINATION: CT brain wo con DATE: 11/04/2024 14:14 INDICATION: Altered mental status TECHNIQUE: Computed tomography (CT) of the head was performed without intravenous contrast. Sagittal and coronal reconstructions were performed. The mA was adjusted according to patient size. Iterative reconstruction technique was employed. The dose-length product was 605.33 mGy-cm. COMPARISON: head CT dated 06/13/2023 FINDINGS: No acute intracranial hemorrhage, acute infarction or abnormal extra axial fluid collection. There is mild scattered white matter hypoattenuation consistent with chronic small vessel ischemic disease. Ventricles are normal and symmetric. No mass/mass effect. Chronic left mastoid effusion. The orbits and paranasal sinuses are normal. Postoperative change at the right mandibular condyle with chronic anterior dislocation of the right temporomandibular joint. IMPRESSION: 1. Mild scattered white matter hypoattenuation consistent with chronic small vessel ischemic disease. No acute intracranial process. Review of Systems Review of Systems: cough productive of yellow copious amount of phlegm, body aches, poor appetite PMFSH Past Medical History Medical History Abdominal aortic aneurysm, without rupture 02/07 CT Aortic stenosis Mild - Echo 05/15/2022 Atherosclerotic heart disease of [place] coronary artery without angina pectoris Bilateral primary osteoarthritis of knee BPH (benign prostatic hyperplasia) Cancer of lower jaw bone (~1986) Chronic hypoxic respiratory failure, on home oxygen therapy CKD (chronic kidney disease) stage 3, GFR 30-59 ml/min Although patient creatinine is been within normal in the past patient's GFR has been below 59 on most lab values since January 2023 Constipation COPD (chronic obstructive pulmonary disease) Depression Erythema multiforme Essential hypertension Essential tremor GERD (gastroesophageal reflux disease) 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 Herpes encephalitis versus a medication effect History of colon polyps History of poliomyelitis History of tobacco use Hx SBO (~05/2007) Hyperlipidemia Ischemic cardiomyopathy Echocardiogram 09/2021: Mildly reduced left ventricular systolic function EF of 45-50%, grade 1 diastolic dysfunction, inferior wall inferior septal wall basal inferior wall and mid inferior lateral wall hypokinesis with mild left atrial and large Myoclonus Normal colonoscopy 05/07 NSTEMI (non-ST elevated myocardial infarction) (~08/2019) Other chronic pain Polio (~1951) Postherpetic neuralgia Primary osteoarthritis, left shoulder Primary osteoarthritis, right shoulder Restless legs syndrome Spinal stenosis, lumbar region without neurogenic claudication Vitamin D deficiency Surgical History Surgical History H/O colonoscopy with polypectomy H/O rotator cuff surgery Bilateral History of bowel resection Due to obstruction History of colon resection History of coronary artery stent placement X2 History of mandibular surgery 1986 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 Bone removed from right hip for reconstructive surgery Presence of coronary angioplasty implant and graft S/P tonsillectomy and adenoidectomy Family History Family History Mother Diabetes mellitus Acute myocardial infarction Father Colon cancer COPD (chronic obstructive pulmonary disease) Sibling Colon cancer Acute myocardial infarction Lung cancer COPD (chronic obstructive pulmonary disease) Sibling COPD (chronic obstructive pulmonary disease) Sibling Congestive heart failure Sibling Dementia Social History Social History Social History: The patient lives with his son and [id number]. Patient is a . The patient quit smoking in 2018. He also gave up alcohol many years ago. No marijuana or illicit drugs. 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 The patient has 5 biological children and raise 2 other children. Code status: Do not intubate Surrogate decision maker: Smoking packs per day: 2 Smoking cigarettes per day: 40.0 Years smoked: 40 Smoking pack-years: 80.00 Smoking status: Former smoker Tobacco type: cigarettes Second hand tobacco smoke exposure: No Alcohol intake: former Substance use: never Substance use type: does not use Other substance usage details: quit alcohol in 2010 Last use: Last alcohol use 2010 Do You Feel Safe in your Home?: Yes Lack of Transportation: No Lack of Food: Never True Current Housing: I Have Housing Concerned About Future Housing: No Difficulty Paying Gas/Electric Bills: No Difficulty Paying for Meds: No Currently Unemployed: No Education: Decline to Answer Difficulty w/ Childcare or Family Care: No Living arrangements: with family 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: retired Gender identity (if verbalized by the patient): Male Sexual Orientation (if Verbalized by the Patient): Straight or Heterosexual Spiritual care concerns: No Agree to blood products: Yes Meds Home Medications and Allergies Home Medications ?Medication ?Instructions ?Recorded ?Confirmed ?Type acetaminophen 500 mg tablet 500 mg PO Q6H PRN Pain 03/18/23 11/04/24 History (Tylenol Extra Strength) finasteride 5 mg tablet (Proscar) 5 mg PO DAILY 03/18/23 11/04/24 History multivitamin 1 tablet PO DAILY 03/18/23 11/04/24 History nitroglycerin 0.3 mg sublingual 0.3 mg sublingual Q5M PRN Chest 03/18/23 11/04/24 History tablet Pain cetirizine 10 mg capsule (Zyrtec) 10 mg PO DAILY PRN allergies 06/13/23 11/04/24 History aspirin 81 mg tablet,delayed 81 mg PO DAILY #90 tabs 06/15/23 11/04/24 Rx release polyethylene glycol 3350 17 gram 17 g PO QAM PRN Constipation #30 ea 06/15/23 Rx oral powder packet (Miralax) simethicone 125 mg capsule (Gas-X 125 mg PO QID #120 caps 06/15/23 11/04/24 Rx Extra Strength) fenofibrate 160 mg tablet 160 mg PO DAILY #90 tabs 09/16/23 11/04/24 Rx losartan 50 mg tablet 50 mg PO DAILY #90 tabs 02/24/24 11/04/24 Rx carvedilol 12.5 mg tablet 12.5 mg PO BID 02/25/24 11/04/24 History nebulizer accessories #1 ea 04/12/24 11/04/24 Rx nebulizer and compressor #1 ea 04/12/24 11/04/24 Rx ipratropium 0.5 mg-albuterol 3 mg 3 ml inhalation Q8H PRN shortness 04/19/24 11/04/24 Rx (2.5 mg base)/3 mL nebulization of breath or wheezing #180 mL soln sulindac 200 mg tablet 200 mg PO BID #180 tabs 04/27/24 11/04/24 Rx esomeprazole magnesium 20 mg See Rx Instructions .Route 04/28/24 11/04/24 Rx capsule,delayed release .COMPLEX #90 caps linaclotide 290 mcg capsule See Rx Instructions .Route 04/28/24 11/04/24 Rx (Linzess) .COMPLEX #90 caps sertraline 50 mg tablet 50 mg PO DAILY #90 tabs 07/18/24 11/04/24 Rx budesonide 160 mcg-glycopyr 9 See Rx Instructions .Route 07/27/24 11/04/24 Rx mcg-formot 4.8 mcg/actuation HFA .COMPLEX #10.7 grams inhaler (Breztri Aerosphere) trazodone 100 mg tablet 100 mg PO HS Insomnia #90 tabs 08/07/24 11/04/24 Rx guaifenesin 1,200 mg tablet, 1,200 mg PO BID PRN cough 08/11/24 11/04/24 History extended release 12 hr (Mucinex) baclofen 10 mg tablet 10 mg PO DAILY PRN Spasms #30 tabs 08/25/24 11/04/24 Rx etodolac 500 mg tablet 500 mg PO BID #60 tabs 09/20/24 11/04/24 Rx bupropion HCl 150 mg tablet,12 hr 150 mg PO BID #180 tabs 09/22/24 11/04/24 Rx sustained-release albuterol sulfate 90 mcg/actuation 2 puff inhalation Q4H PRN 10/03/24 11/04/24 Rx aerosol inhaler Shortness Of Breath Or Wheezing #8.5 grams tamsulosin 0.4 mg capsule 0.4 mg PO DAILY #90 caps 10/12/24 11/04/24 Rx atorvastatin 80 mg tablet 80 mg PO DAILY #90 tabs 10/26/24 11/04/24 Rx morphine 30 mg tablet,extended 30 mg PO QAM #30 tabs 10/26/24 11/04/24 Rx release lorazepam 0.5 mg tablet 0.5 mg PO BID PRN anxiety #40 tabs 11/02/24 11/04/24 Rx amoxicillin 875 mg-potassium 1 tablet PO Q12H #10 tabs 11/04/24 Rx clavulanate 125 mg tablet azithromycin 250 mg tablet 250 mg PO DAILY 4 days #4 tabs 11/04/24 Rx furosemide 40 mg tablet 40 mg PO BID 11/04/24 11/04/24 History furosemide 40 mg tablet (Lasix) 40 mg PO DAILY #7 tabs 11/04/24 Rx Allergies Allergy/AdvReac Type Severity Reaction Status Date / Time clonazepam AdvReac Severe Drowsy Verified 09/19/24 11:22 roflumilast (From Daliresp) AdvReac Severe Diarrhea Verified 09/19/24 11:22 Vital Signs Vital Signs - 24 hr 11/04/24 10:52 11/04/24 12:00 11/04/24 12:45 Temperature 97.6 F Pulse Rate 77 70 Respiratory Rate 19 15 Blood Pressure 117/43 L 107/50 L Pulse Oximetry 93 98 97 Oxygen Delivery Nasal Cannula Nasal Cannula Oxygen Flow Rate 3 2 11/04/24 12:47 11/04/24 13:01 11/04/24 13:16 Temperature Pulse Rate 67 68 66 Respiratory Rate 17 16 13 Blood Pressure 113/46 L 108/53 L 111/92 H Pulse Oximetry 97 97 98 Oxygen Delivery Oxygen Flow Rate 11/04/24 14:02 11/04/24 15:00 11/04/24 15:39 Temperature Pulse Rate 74 77 Respiratory Rate 16 17 Blood Pressure 122/47 L 127/95 H Pulse Oximetry 98 100 98 Oxygen Delivery Oxygen Flow Rate 11/04/24 16:33 11/04/24 16:51 11/04/24 17:01 Temperature 97.8 F Pulse Rate 80 80 Respiratory Rate 16 14 Blood Pressure 109/81 Pulse Oximetry 100 100 Oxygen Delivery Oxygen Flow Rate 11/04/24 18:00 11/04/24 18:48 11/04/24 19:01 Temperature Pulse Rate 85 92 95 Respiratory Rate 16 14 19 Blood Pressure 128/64 Pulse Oximetry 99 98 Oxygen Delivery Oxygen Flow Rate Exam Narrative: lying in bed Const: General: comfortable, no acute distress, well developed, alert, awake, ill appearing acutely and thin Nutritional Appearance: thin Orientation/consciousness: patient oriented x3 HENMT: Head: normal to inspection, normocephalic and atraumatic Ears: hearing grossly normal bilaterally Face/Nose/Sinus: normal facial exam Face and sinus: normal facial exam Eyes: General: appearance normal, both eyes and all related structures Pupils: Equal, round and reactive pupils present EOM: EOMs intact bilaterally Neck: Neck: full ROM, no lymphadenopathy and no JVD Thyroid: thyroid normal Lymphatic: no lymphadenopathy noted Resp: Effort & Inspection: normal respiratory effort and able to speak in complete sentences Auscultation: crackles, rales and diminished lung sounds Cardio: Jugular venous distension: no JVD Rate: regular rate Rhythm: regular rhythm Heart sounds: S1 normal heart sound present and S2 normal heart sound present GI: GI Palp: Yes Soft to palpation and Yes No hepatosplenomegaly present : General: Yes deferred Skin: Rashes: no rashes Wounds: no wounds Neuro: General: patient oriented x3 and CN's II-XI intact bilaterally Cranial nerves: Yes CN's II-XII intact bilaterally and Yes Equal, round and reactive pupils present Cognition (Neuro): normal cognition Speech: normal speech Gait exam (Neuro): Unable to assess gait Motor exam (neuro): 5/5 motor strength present throughout Extrem: General: normal to inspection, full ROM, no joint enlargement and no pedal edema H&P: Results Labs Labs: Short CBC 11/04/24 Range/Units 12:01 WBC 9.8 (4.5-10.0) K/mm3 Hgb 10.3 L (14.0-18.0) g/dL Hct 31.9 L (42.0-52.0) % Plt Count 216 (150-375) k/mm3 BMP 11/04/24 12:01 Sodium 135 L Potassium 4.1 Chloride 104 Carbon Dioxide 26 BUN 39 H Creatinine 1.50 H Glucose 121 H Calcium 9.2 Liver Function 11/04/24 Range/Units 12:01 Total Bilirubin 1.1 (0.2-1.3) mg/dL AST 43 (17-59) U/L ALT 26 (6-50) U/L Alkaline Phosphatase 90 (38-126) U/L Albumin 3.7 (3.5-5.1) g/dL Assessment and Plan Assessment and plan (1) Pneumonia: Code(s): J18.9 - Pneumonia, unspecified organism Status: Acute Assessment and Plan: Admit to med tele started on Rocephin and Zithromax await cultures (2) Ischemic cardiomyopathy: Code(s): I25.5 - Ischemic cardiomyopathy Status: Acute Assessment and Plan: continue home meds continue to monitor (3) Acute kidney injury superimposed on chronic kidney disease: Code(s): N17.9 - Acute kidney failure, unspecified; N18.9 - Chronic kidney disease, unspecified Status: Acute Assessment and Plan: continue to monitor daily BMP holding losartan holding Lasix (4) Chronic hypoxic respiratory failure, on home oxygen therapy: Code(s): J96.11 - Chronic respiratory failure with hypoxia; Z99.81 - Dependence on supplemental oxygen Status: Acute Assessment and Plan: continue supplemental oxygen by nasal cannula (5) CHF (congestive heart failure), NYHA class I: Qualifiers: Congestive heart failure chronicity: chronic Congestive heart failure type: diastolic Qualified Code(s): I50.32 - Chronic diastolic (congestive) heart failure Code(s): I50.9 - Heart failure, unspecified Status: Chronic Assessment and Plan: patient appears euvolemic on physical exam daily intake and output (6) COPD (chronic obstructive pulmonary disease): Qualifiers: COPD type: unspecified COPD Qualified Code(s): J44.9 - Chronic obstructive pulmonary disease, unspecified Code(s): J44.9 - Chronic obstructive pulmonary disease, unspecified Status: Chronic Assessment and Plan: continue home meds continue inhalers (7) HTN (hypertension): Qualifiers: Hypertension type: primary hypertension Qualified Code(s): I10 - Essential (primary) hypertension Code(s): I10 - Essential (primary) hypertension Status: Chronic Assessment and Plan: continue to monitor (8) Anxiety disorder, unspecified: Code(s): F41.9 - Anxiety disorder, unspecified Status: Acute Assessment and Plan: continue lorazepam (9) Spinal stenosis, lumbar region without neurogenic claudication: Code(s): M48.061 - Spinal stenosis, lumbar region without neurogenic claudication Status: Acute Assessment and Plan: patient on morphine extended release (10) Left foot drop: Code(s): M21.372 - Foot drop, left foot Status: Acute Assessment and Plan: patient wears a special boot (11) GERD (gastroesophageal reflux disease): Code(s): K21.9 - Gastro-esophageal reflux disease without esophagitis Status: Acute Assessment and Plan: PPI Hospitalist MIPS Advance Care Plan I have confirmed that the patient's Advanced Care Plan is present, code status is documented, or surrogate decision maker is listed in patient medical record.: Yes Medication Reconciliation I have utilized all available resources to obtain, update and review the patients current medications (includes all prescriptions, OTC, herbals, cannabis, and nutritional supplements).: Yes
--- NOTE | 2024-11-04 20:45 | ADMGEN ---
This patient, Russell Morse, was admitted to Medical Room 348-01. Patient/family oriented to hospital policies and general routines including ID bracelet, bed and alarms, visiting hours, pain management, procedures, bathroom and other care routines, personal items, smoking policy, room service/diet, and visiting hours. Information on how to activate the Rapid Response Team has been discussed. Patient/Family are encouraged to report perceived risks to care and to ask questions if they do not understand what they are told or what they should do.
[2024-11-05] VITALS (8 sets, daily range): BP systolic 92–147; BP diastolic 38–47; PULSE 56–124; RESP 16–18; TEMP 36.1–37; O2SAT 94–99
--- NOTE | 2024-11-05 00:38 | PC.NURSE ---
CHF EDUCATION PAPERWORK PROVIDED TO PATIENT.
[2024-11-05] MEDS: traZODone HCL 50 MG TABLET 100 MG BY MOUTH (02:40)
[2024-11-05] MEDS: LINACLOTIDE 145 MCG CAPSULE 290 MCG PO (06:30)
--- NOTE | 2024-11-05 07:26 | P.PNIM_ITS ---
Progress Note: A&P Assessment and Plan (1) Acute on chronic respiratory failure with hypoxia: Code(s): J96.21 - Acute and chronic respiratory failure with hypoxia Status: Acute Assessment and Plan: * currently on 4 L nasal cannula * Normally wears 3 L nasal cannula at home baseline O2 requirement * respiratory panel was negative for influenza a and B, RSV, COVID (2) Pneumonia: Code(s): J18.9 - Pneumonia, unspecified organism Status: Acute Assessment and Plan: * chest x-ray showed interstitial airspace opacities in bilateral lower lung zones * continue Rocephin and azithromycin * continue DuoNebs q.6 hours * continue to wean O2 for sat greater than 92% * currently on 4 L nasal cannula * PT and OT ordered (3) Acute kidney injury superimposed on chronic kidney disease: Code(s): N17.9 - Acute kidney failure, unspecified; N18.9 - Chronic kidney disease, unspecified Status: Acute Assessment and Plan: * initial creatinine 1.50, now down to 1.20 which appears to be the patient's baseline * continue to trend * avoid nephrotoxic medication * renally dose medications as needed (4) CHF (congestive heart failure), NYHA class I: Qualifiers: Congestive heart failure chronicity: chronic Congestive heart failure type: diastolic Qualified Code(s): I50.32 - Chronic diastolic (congestive) heart failure Code(s): I50.9 - Heart failure, unspecified Status: Chronic Assessment and Plan: * Restarted Lasix, losartan, carvedilol however blood pressure is 92/38 manually after getting his morning medications and these medicines were held * Will put patient on telemetry * No echo to review in chart * Will obtain echocardiogram (5) COPD (chronic obstructive pulmonary disease): Qualifiers: COPD type: unspecified COPD Qualified Code(s): J44.9 - Chronic obstructive pulmonary disease, unspecified Code(s): J44.9 - Chronic obstructive pulmonary disease, unspecified Status: Chronic Assessment and Plan: * He wears 3 L at baseline, currently on 4 L nasal cannula * Continue to wean for sat greater than 90% (6) HTN (hypertension): Qualifiers: Hypertension type: primary hypertension Qualified Code(s): I10 - Essential (primary) hypertension Code(s): I10 - Essential (primary) hypertension Status: Chronic Assessment and Plan: * blood pressure medications held due to low blood pressure after receiving blood pressure medications this morning * Will continue to trend (7) Anxiety disorder, unspecified: Code(s): F41.9 - Anxiety disorder, unspecified Status: Acute Assessment and Plan: * continue lorazepam (8) GERD (gastroesophageal reflux disease): Code(s): K21.9 - Gastro-esophageal reflux disease without esophagitis Status: Acute Assessment and Plan: * continue Protonix (9) Hyperlipidemia: Qualifiers: Hyperlipidemia type: mixed hyperlipidemia Qualified Code(s): E78.2 - Mixed hyperlipidemia Code(s): E78.5 - Hyperlipidemia, unspecified Status: Acute Assessment and Plan: * continue aspirin, atorvastatin, and fenofibrate (10) BPH (benign prostatic hyperplasia): Code(s): N40.0 - Benign prostatic hyperplasia without lower urinary tract symptoms Status: Acute Assessment and Plan: * continue Proscar and tamsulosin Time Spent With Patient Time with patient: Greater than 35 minutes Subjective Date/time seen: 11/05/24 07:26 Interval history: Interval history: This is an 79-year-old male who presented to the hospital on 11/04/2024 with worsening cough, sputum production, chills, shortness of breath, body aches, decreased appetite. Workup in the hospital included a chest x-ray which shown interstitial airspace opacities in bilateral lower lung zones which represent pulmonary edema versus pneumonia, small right pleural effusion. Head CT was also done and showed mild scattered white matter hypoattenuation consistent with chronic small-vessel ischemic disease, no acute intracranial process. Initial labs shown a in normal white blood cell count of 9.8, hemoglobin 10.3, sodium 135, creatinine 1.50, EGFR 45, blood sugar ranging 105-121, lactic acid was normal at 0.7, proBNP 1200. Respiratory panel was negative for influenza a and B, RSV, COVID. Blood cultures were obtained and are pending. EKG showed sinus rhythm with left axis deviation with a rate of 75, QTC 465. Patient was given 60 mg IV push Lasix, Flomax, Rocephin, azithromycin, and Ativan while in the ED. Subjective: Patient denies any fever, chills, nausea, vomiting, abdominal pain, chest pain, shortness a breath. Patient endorses diarrhea today. Labs and imaging reviewed. Review of Systems Review of Systems: All systems reviewed & are unremarkable except as noted in HPI and below Constitutional: Constitutional: Reports as per HPI and Reports no additional constitutional complaints Eyes: Eyes: Reports as per HPI and Reports no additional eye complaints ENT: Reports system reviewed and no additional complaints, except as documented and Reports as per HPI Cardiovascular: Cardiovascular: Reports as per HPI and Reports no additional cardiovascular complaints Respiratory: Respiratory: Reports as per HPI and Reports no additional respiratory complaints Gastrointestinal: Gastrointestinal: Reports as per HPI and Reports no additional gastrointestinal complaints Genitourinary: Genitourinary: Reports no additional male genitourinary complaints and Reports as per HPI Musculoskeletal: Musculoskeletal: Reports no additional musculoskeletal complaints and Reports as per HPI Integumentary/Breasts: Skin/Breast: Reports system reviewed and no additional complaints, except as docu and Reports as per HPI Neurologic: Reports system reviewed and no additional complaints, except as documented and Reports as per HPI Psychiatric: Psychiatric: Reports no additional psychiatric complaints and Reports as per HPI Exam Narrative: General: In no acute distress, well nourished Head: atraumatic, no encephalopathy Eyes: PERRLA, sclera clear ENT: moist mucous membranes, nasal passages clear Neck: supple, no JVD, no adenopathy, trachea midline Cardiac: Normal S1 and S2. No murmur, gallops or friction rubs, peripheral pulses intact. Respiratory: Lungs clear to auscultation, no adventitious lung sounds, currently on 4 L nasal cannula Gastrointestinal: soft, non-distended, non-tender, normoactive bowel sounds. : voiding without difficulty. Extremities: moves all extremities well, no edema Skin: clean, dry, intact. No wounds or lesions. Neuro: Alert and oriented x4, cranial nerves intact, no neuro deficits. Psych: normal mood, normal affect, interactive Objective Data Vital Signs Vital Signs: Vital Signs - 24 hr 11/04/24 10:52 11/04/24 12:00 11/04/24 12:45 Temperature 97.6 F Pulse Rate 77 70 Respiratory Rate 19 15 Blood Pressure 117/43 L 107/50 L Pulse Oximetry 93 98 97 Oxygen Delivery Nasal Cannula Nasal Cannula Oxygen Flow Rate 3 2 11/04/24 12:47 11/04/24 13:01 11/04/24 13:16 Temperature Pulse Rate 67 68 66 Respiratory Rate 17 16 13 Blood Pressure 113/46 L 108/53 L 111/92 H Pulse Oximetry 97 97 98 Oxygen Delivery Oxygen Flow Rate 11/04/24 14:02 11/04/24 15:00 11/04/24 15:39 Temperature Pulse Rate 74 77 Respiratory Rate 16 17 Blood Pressure 122/47 L 127/95 H Pulse Oximetry 98 100 98 Oxygen Delivery Oxygen Flow Rate 11/04/24 16:33 11/04/24 16:51 11/04/24 17:01 Temperature 97.8 F Pulse Rate 80 80 Respiratory Rate 16 14 Blood Pressure 109/81 Pulse Oximetry 100 100 Oxygen Delivery Oxygen Flow Rate 11/04/24 18:00 11/04/24 18:48 11/04/24 19:01 Temperature Pulse Rate 85 92 95 Respiratory Rate 16 14 19 Blood Pressure 128/64 Pulse Oximetry 99 98 Oxygen Delivery Oxygen Flow Rate 11/04/24 22:00 11/04/24 23:31 11/05/24 06:00 Temperature 99.5 F 98.6 F Pulse Rate 93 78 Respiratory Rate 20 18 Blood Pressure 141/56 H 147/47 H Pulse Oximetry 100 100 99 Oxygen Delivery Nasal Cannula Oxygen Flow Rate 3 Intake/Output Intake/Output: Intake & Output 11/02/24 11/03/24 11/04/24 11/05/24 23:59 23:59 23:59 23:59 Intake Total 300 100 Output Total 200 Balance 300 -100 Meds/Results Medications: Active Medications Generic Name Dose Route Start Last Admin Trade Name Freq PRN Reason Stop Dose Admin Acetaminophen 500 mg 11/05/24 01:32 Acetaminophen 500 Mg Tablet PO Q6H PRN Pain Albuterol 2 puff 11/05/24 01:32 Albuterol Sulfate (*Sp) Aerosol 1 Puff INHALATION Q4HRT PRN Shortness Of Breath Or Wheezing Albuterol/Ipratropium 3 ml 11/05/24 01:32 Ipratropium 0.5 Mg/Albuterol Sulfate 2.5 Mg Ampul.Neb 3 Ml INHALATION Q8HRT PRN shortness of breath or wheezing Aspirin 81 mg 11/05/24 09:00 Aspirin 81 Mg Enteric Tablet PO DAILY GIOVANNY Baclofen 10 mg 11/05/24 01:32 Baclofen 10 Mg Tablet PO DAILY PRN Spasms Bupropion HCl 150 mg 11/05/24 09:00 Bupropion Hcl Sr (12 Hr) 150 Mg Tab PO Q12HR GOIVANNY Carvedilol 12.5 mg 11/05/24 09:00 Carvedilol 12.5 Mg Tablet PO Q12HR GIOVANNY Finasteride 5 mg 11/05/24 09:00 Finasteride 5 Mg Tablet PO DAILY GIOVANNY Fluticasone/Umeclidinium/Vilanterol 1 puff 11/05/24 08:00 Fluticasone/Umeclidin/Vilanter 100-62.5-25 Mcg Ellipta INHALATION DAILYRT ON LICENSE OF [facility] Guaifenesin 1,200 mg 11/05/24 01:32 Guaifenesin 12 Hr 600 Mg Tabcr PO Q12H PRN cough Linaclotide 290 mcg 11/05/24 06:30 11/05/24 06:30 Linaclotide 145 Mcg Capsule PO 290 mcg DAILY@0630 ON LICENSE OF [facility] Administration Lorazepam 0.5 mg 11/05/24 01:32 Lorazepam (*Crx) 0.5 Mg Tablet PO BID PRN anxiety Miscellaneous Information 1 each 11/05/24 00:01 (Etodolac 500 Mg Tablet) Is Nonformulary, Can Patient Bring From Home? XX 12/05/24 00:00 CLARIFY GIOVANNY Miscellaneous Information 1 each 11/05/24 00:01 Nitroglycerin 0.3 Mg Tablet, Sublingual) Is Nonformulary, We Carry The 0.4 Mg Tablets, Swi XX 12/05/24 00:00 CLARIFY GIOVANNY Morphine Sulfate 30 mg 11/05/24 09:00 Morphine Sulfate (*Crx) 30 Mg Tabcr PO QAM ON LICENSE OF [facility] Non-Formulary Medication 500 mg 11/05/24 09:00 Etodolac PO 12/05/24 08:59 BID ON LICENSE OF [facility] Non-Formulary Medication 0.3 mg 11/05/24 01:32 Nitroglycerin SUBLINGUAL Q5M PRN Chest Pain Pantoprazole Sodium 40 mg 11/05/24 09:00 Pantoprazole 40 Mg Tablet PO QAM ON LICENSE OF [facility] Polyethylene Glycol 17 gm 11/05/24 01:32 Polyethylene Glycol 3350 17 Gm Powd.Pack PO QAM PRN Constipation Sertraline HCl 50 mg 11/05/24 09:00 Sertraline Hcl 50 Mg Tablet PO DAILY ON LICENSE OF [facility] Simethicone 125 mg 11/05/24 09:00 Simethicone 125 Mg Chew Tab PO QID ON LICENSE OF [facility] Tamsulosin HCl 0.4 mg 11/05/24 09:00 Tamsulosin Hcl 0.4 Mg Capsule PO DAILY ON LICENSE OF [facility] Trazodone HCl 100 mg 11/05/24 21:00 Trazodone Hcl 50 Mg Tablet PO [facility] Radiology Results: ITS Impressions Chest X-Ray 11/04/24 12:31 IMPRESSION: 1. Interstitial and airspace opacities in bilateral lower lung zones which could represent mild pulmonary edema or pneumonia. 2. Small right pleural effusion. Head CT 11/04/24 14:20 IMPRESSION: 1. Mild scattered white matter hypoattenuation consistent with chronic small vessel ischemic disease. No acute intracranial process. Labs Labs: Laboratory Results - last 24 hr 11/04/24 11/04/24 12:01 12:45 WBC 9.8 RBC 3.21 L Hgb 10.3 L Hct 31.9 L MCV 99.4 MCH 32.1 MCHC 32.3 RDW 14.6 H Plt Count 216 MPV 11.2 H Immature Gran % (Auto) 0.4 Neut % (Auto) 77.5 H Lymph % (Auto) 9.4 L [place] % (Auto) 11.7 H Eos % (Auto) 0.9 Baso % (Auto) 0.1 L Lymph # (Auto) 0.92 [place] # (Auto) 1.2 H Eos # (Auto) 0.1 Baso # (Auto) 0.0 Abs Immat Gran (auto) 0.04 H Absolute Neuts (auto) 7.6 H Absolute Nucleated RBC 0.000 Nucleated RBC % 0.0 Sodium 135 L Potassium 4.1 Chloride 104 Carbon Dioxide 26 Anion Gap 5 BUN 39 H Creatinine 1.50 H Estim Creat Clear Calc 38 Estimated GFR 45 L Glucose 121 H Lactic Acid 0.7 Calcium 9.2 Total Bilirubin 1.1 AST 43 ALT 26 Alkaline Phosphatase 90 NT-Pro-B Natriuret Pep 1200 H Total Protein 7.0 Albumin 3.7 Influenza A (RT-PCR) Negative Influenza B (RT-PCR) Negative RSV (RT-PCR) Negative SARS-CoV-2 RNA (RT-PCR) Negative
[2024-11-05] MEDS: FLUTICASONE/UMECLIDIN/VILANTER 100-62.5-25 MCG ELLIPTA 1 PUFF INHALATION (07:55)
[2024-11-05 08:24] LABS: Basophils Percent Auto 0.1 % (0.2-1.2); Eosinophils Absolute Auto 0.1 K/mm3 (0-0.3); Eosinophils Percent Auto 0.9 % (0-4.4); Hematocrit 32.9 % (42.0-52.0); Hemoglobin 10.2 g/dL (14.0-18.0); Immature Granulocyte Absolute 0.07 K/mm3 (0.00-0.031); Immature Granulocyte Percent A 0.9 % (0-0.5); Lymphocytes Percent Auto 13.8 % (18.3-44.2); Mean Corpuscular Hemoglobin 30.7 pg (26-34); Mean Corpuscular Volume 99.1 fl (80-100); Mean Platelet Volume 10.2 fl (7.4-10.4); Monocytes Absolute Auto 1.3 K/mm3 (0.1-0.6); Monocytes Percent Auto 16.2 % (2.6-8.5); Neutrophils Absolute Auto 5.4 K/mm3 (1.3-6.7); Neutrophils Percent Auto 68.1 % (45.5-73.1); Platelet Count Result 196 k/mm3 (150-375); Red Blood Count 3.32 M/mm3 (4.6-6.20); Red Cell Distribution Width 14.4 % (11.5-14.5)
[2024-11-05 08:40] LABS: Alanine Aminotransferase 23 U/L (6-50); Albumin Level 3.5 g/dL (3.5-5.1); Alkaline Phosphatase 87 U/L (38-126); Anion Gap 5 mmol/L (4-12); Aspartate Amino Transferase 43 U/L (17-59); Blood Urea Nitrogen 29 mg/dL (9-20); Calcium 9.5 mg/dL (8.4-10.2); Carbon Dioxide 29 mmol/L (22-30); Chloride 104 mmol/L (98-107); Estimated CRCL calculation 47 ml/min; Estimated Glomerular Filt Rate 58; Glucose 105 mg/dL (65-110); Potassium 4.5 mmol/L (3.4-5.0); Sodium 138 mmol/L (137-145)
[2024-11-05] MEDS: ASPIRIN 81 MG ENTERIC TABLET PO (08:46)
[2024-11-05] MEDS: MULTIVITAMINS THERAPEUTIC TAB (*BKC) 1 TABLET PO (08:46)
[2024-11-05] MEDS: FINASTERIDE 5 MG TABLET PO (08:46)
[2024-11-05] MEDS: TAMSULOSIN HCL 0.4 MG CAPSULE PO (08:46)
[2024-11-05] MEDS: buPROPion HCL SR (12 HR) 150 MG TAB PO ×2 (08:46→21:11)
[2024-11-05] MEDS: ATORVASTATIN 40 MG TABLET 80 MG PO (08:46)
[2024-11-05] MEDS: SERTRALINE HCL 50 MG TABLET PO (08:47)
[2024-11-05] MEDS: FENOFIBRATE 160 MG TABLET PO (08:47)
[2024-11-05] MEDS: MORPHINE SULFATE (*CRX) 30 MG TABCR PO (08:47)
[2024-11-05] MEDS: SIMETHICONE 125 MG CHEW TAB PO ×4 (08:47→21:11)
[2024-11-05] MEDS: PANTOPRAZOLE 40 MG TABLET PO (08:47)
[2024-11-05] MEDS: carvediloL 12.5 MG TABLET PO ×2 (08:48→21:10)
[2024-11-05] MEDS: ACETAMINOPHEN 500 MG TABLET PO (10:28)
[2024-11-05] MEDS: LOSARTAN POTASSIUM 50 MG TABLET PO (10:29)
[2024-11-05] MEDS: FUROSEMIDE 40 MG TABLET PO (17:46)
[2024-11-05] MEDS: AZITHROMYCIN 250 MG TABLET 500 MG PO (17:46)
[2024-11-05] MEDS: SACCHAROMYCES BOULARDII 250 MG CAPSULE PO (17:46)
[2024-11-05] MEDS: traZODone HCL 50 MG TABLET 100 MG PO (21:10)
[2024-11-06] VITALS (10 sets, daily range): BP systolic 103–134; BP diastolic 44–65; PULSE 56–576; RESP 18; TEMP 35.8–37.1; O2SAT 95–99
[2024-11-06] MEDS: ACETAMINOPHEN 500 MG TABLET PO (04:47)
[2024-11-06] MEDS: LINACLOTIDE 145 MCG CAPSULE 290 MCG PO (04:48)
[2024-11-06] MEDS: LORazepam (*CRX) 0.5 MG TABLET PO (05:31)
[2024-11-06 05:44] LABS: Basophils Percent Auto 0.2 % (0.2-1.2); Eosinophils Absolute Auto 0.1 K/mm3 (0-0.3); Eosinophils Percent Auto 1.6 % (0-4.4); Hematocrit 31.4 % (42.0-52.0); Hemoglobin 9.8 g/dL (14.0-18.0); Immature Granulocyte Absolute 0.04 K/mm3 (0.00-0.031); Immature Granulocyte Percent A 0.5 % (0-0.5); Lymphocytes Percent Auto 11.7 % (18.3-44.2); Mean Corpuscular HGB Conc 31.2 g/dl (32-36); Mean Corpuscular Hemoglobin 30.2 pg (26-34); Mean Corpuscular Volume 96.9 fl (80-100); Mean Platelet Volume 10.8 fl (7.4-10.4); Monocytes Absolute Auto 1.1 K/mm3 (0.1-0.6); Monocytes Percent Auto 12.9 % (2.6-8.5); Neutrophils Absolute Auto 6.2 K/mm3 (1.3-6.7); Neutrophils Percent Auto 73.1 % (45.5-73.1); Platelet Count Result 244 k/mm3 (150-375); Red Blood Count 3.24 M/mm3 (4.6-6.20); Red Cell Distribution Width 14.2 % (11.5-14.5); White Blood Count 8.5 K/mm3 (4.5-10.0)
[2024-11-06 05:55] LABS: Alanine Aminotransferase 24 U/L (6-50); Albumin Level 3.4 g/dL (3.5-5.1); Alkaline Phosphatase 91 U/L (38-126); Anion Gap 5 mmol/L (4-12); Aspartate Amino Transferase 40 U/L (17-59); Bilirubin,Total 0.7 mg/dL (0.2-1.3); Blood Urea Nitrogen 31 mg/dL (9-20); Carbon Dioxide 27 mmol/L (22-30); Chloride 102 mmol/L (98-107); Estimated CRCL calculation 35 ml/min; Estimated Glomerular Filt Rate 42; Glucose 137 mg/dL (65-110); Sodium 134 mmol/L (137-145)
[2024-11-06] MEDS: FLUTICASONE/UMECLIDIN/VILANTER 100-62.5-25 MCG ELLIPTA 1 PUFF INHALATION (07:37)
[2024-11-06] MEDS: MULTIVITAMINS THERAPEUTIC TAB (*BKC) 1 TABLET PO (09:26)
[2024-11-06] MEDS: MORPHINE SULFATE (*CRX) 30 MG TABCR PO (09:26)
[2024-11-06] MEDS: ASPIRIN 81 MG ENTERIC TABLET PO (09:26)
[2024-11-06] MEDS: PANTOPRAZOLE 40 MG TABLET PO (09:26)
[2024-11-06] MEDS: SACCHAROMYCES BOULARDII 250 MG CAPSULE PO ×2 (09:26→12:49)
[2024-11-06] MEDS: FENOFIBRATE 160 MG TABLET PO (09:26)
[2024-11-06] MEDS: FUROSEMIDE 40 MG TABLET PO (09:26)
[2024-11-06] MEDS: SERTRALINE HCL 50 MG TABLET PO (09:26)
[2024-11-06] MEDS: ATORVASTATIN 40 MG TABLET 80 MG PO (09:26)
[2024-11-06] MEDS: SIMETHICONE 125 MG CHEW TAB PO ×2 (09:26→12:49)
[2024-11-06] MEDS: carvediloL 12.5 MG TABLET PO (09:27)
[2024-11-06] MEDS: FINASTERIDE 5 MG TABLET PO (09:27)
[2024-11-06] MEDS: buPROPion HCL SR (12 HR) 150 MG TAB PO (09:27)
[2024-11-06] MEDS: TAMSULOSIN HCL 0.4 MG CAPSULE PO (09:27)
[2024-11-06 12:49] LABS: NT Pro B Type Natriuretic Pept 1330 pg/mL (19.9-100)
--- NOTE | 2024-11-06 13:32 | PM.IMPN ---
Subjective Date/time seen: 11/06/24 13:32 Objective Data Vital Signs Vital Signs: Vital Signs - 24 hr 11/05/24 14:00 11/05/24 16:04 11/05/24 20:00 Temperature 97.8 F Pulse Rate 66 Respiratory Rate 16 Blood Pressure 92/38 L Pulse Oximetry 94 98 Oxygen Delivery Nasal Cannula Nasal Cannula Oxygen Flow Rate 3 3 Fraction of Inspired Oxygen 11/05/24 20:00 11/05/24 20:25 11/05/24 21:10 Temperature 96.9 F L Pulse Rate 57 L 56 L 84 Respiratory Rate 16 Blood Pressure 124/42 L Pulse Oximetry 96 Oxygen Delivery Oxygen Flow Rate Fraction of Inspired Oxygen 11/06/24 00:00 11/06/24 04:00 11/06/24 06:00 Temperature 98.8 F Pulse Rate 64 83 77 Respiratory Rate 18 Blood Pressure 125/46 L Pulse Oximetry 95 Oxygen Delivery Oxygen Flow Rate Fraction of Inspired Oxygen 11/06/24 07:38 11/06/24 08:00 11/06/24 09:26 Temperature Pulse Rate 59 L Respiratory Rate Blood Pressure Pulse Oximetry 97 98 Oxygen Delivery Nasal Cannula Nasal Cannula Oxygen Flow Rate 3 3 Fraction of Inspired Oxygen 32 11/06/24 09:26 11/06/24 09:27 11/06/24 10:23 Temperature Pulse Rate 80 Respiratory Rate Blood Pressure 134/65 Pulse Oximetry Oxygen Delivery Nasal Cannula Oxygen Flow Rate 3 Fraction of Inspired Oxygen Intake/Output Intake/Output: Intake & Output 11/03/24 11/04/24 11/05/24 11/06/24 23:59 23:59 23:59 23:59 Intake Total 300 1500 340 Output Total 500 675 Balance 300 1000 -335 Meds/Results Medications: Active Medications Generic Name Dose Route Start Last Admin Trade Name Freq PRN Reason Stop Dose Admin Acetaminophen 500 mg 11/05/24 01:32 11/06/24 04:47 Acetaminophen 500 Mg Tablet PO 500 mg Q6H PRN Administration Pain Albuterol 2 puff 11/05/24 01:32 Albuterol Sulfate (*Sp) Aerosol 1 Puff INHALATION Q4HRT PRN Shortness Of Breath Or Wheezing Albuterol/Ipratropium 3 ml 11/05/24 01:32 Ipratropium 0.5 Mg/Albuterol Sulfate 2.5 Mg Ampul.Neb 3 Ml INHALATION Q8HRT PRN shortness of breath or wheezing Amoxicillin/Clavulanate Potassium 1 tablet 11/06/24 21:00 Amoxicillin/Clavulanate K 875-125 Mg Tab PO Q12HR [facility] Aspirin 81 mg 11/05/24 09:00 11/06/24 09:26 Aspirin 81 Mg Enteric Tablet PO 81 mg DAILY GIOVANNY Administration Atorvastatin Calcium 80 mg 11/05/24 09:00 11/06/24 09:26 Atorvastatin 40 Mg Tablet PO 80 mg DAILY GIOVANNY Administration Azithromycin 500 mg 11/05/24 16:00 11/05/24 17:46 Azithromycin 250 Mg Tablet PO 500 mg Q24H GIOVANNY Administration Baclofen 10 mg 11/05/24 01:32 Baclofen 10 Mg Tablet PO DAILY PRN Spasms Bupropion HCl 150 mg 11/05/24 09:00 11/06/24 09:27 Bupropion Hcl Sr (12 Hr) 150 Mg Tab PO 150 mg Q12HR GIOVANNY Administration Carvedilol 12.5 mg 11/05/24 09:00 11/06/24 09:27 Carvedilol 12.5 Mg Tablet PO 12.5 mg Q12HR GIOVANNY Administration Fenofibrate 160 mg 11/05/24 09:00 11/06/24 09:26 Fenofibrate 160 Mg Tablet PO 160 mg DAILY GIOVANNY Administration Finasteride 5 mg 11/05/24 09:00 11/06/24 09:27 Finasteride 5 Mg Tablet PO 5 mg DAILY GIOVANNY Administration Fluticasone/Umeclidinium/Vilanterol 1 puff 11/05/24 08:00 11/06/24 07:37 Fluticasone/Umeclidin/Vilanter 100-62.5-25 Mcg Ellipta INHALATION 1 puff DAILYRT GIOVANNY Administration Furosemide 40 mg 11/05/24 17:00 11/06/24 09:26 Furosemide 40 Mg Tablet PO 40 mg BID GIOVANNY Administration Guaifenesin 1,200 mg 11/05/24 01:32 Guaifenesin 12 Hr 600 Mg Tabcr PO Q12H PRN cough Linaclotide 290 mcg 11/05/24 06:30 11/06/24 04:48 Linaclotide 145 Mcg Capsule PO 290 mcg DAILY@0630 GIOVANNY Administration Lorazepam 0.5 mg 11/05/24 01:32 11/06/24 05:31 Lorazepam (*Crx) 0.5 Mg Tablet PO 0.5 mg BID PRN Administration anxiety Losartan Potassium 50 mg 11/05/24 09:55 11/05/24 10:29 Losartan Potassium 50 Mg Tablet PO 50 mg DAILY GIOVANNY Administration Morphine Sulfate 30 mg 11/05/24 09:00 11/06/24 09:26 Morphine Sulfate (*Crx) 30 Mg Tabcr PO 30 mg QAM GIOVANNY Administration Multivitamins Therapeutic 1 tablet 11/05/24 09:00 11/06/24 09:26 Multivitamins Therapeutic Tab (*Bkc) PO 1 tablet DAILY GIOVANNY Administration Pantoprazole Sodium 40 mg 11/05/24 09:00 11/06/24 09:26 Pantoprazole 40 Mg Tablet PO 40 mg QAM GIOVANNY Administration Perflutren Lipid Microsphere 0 ml 11/05/24 14:32 Perflutren Lipid Microspheres 1.5 Ml Vial Diluted To 10 Ml Total Volume IV PUSH 11/08/24 14:32 ONCE PRN adequate visualization Protocol Polyethylene Glycol 17 gm 11/05/24 01:32 Polyethylene Glycol 3350 17 Gm Powd.Pack PO QAM PRN Constipation Saccharomyces Boulardii 250 mg 11/05/24 17:00 11/06/24 12:49 Saccharomyces Boulardii 250 Mg Capsule PO 250 mg TID GIOVANNY Administration Sertraline HCl 50 mg 11/05/24 09:00 11/06/24 09:26 Sertraline Hcl 50 Mg Tablet PO 50 mg DAILY GIOVANNY Administration Simethicone 125 mg 11/05/24 09:00 11/06/24 12:49 Simethicone 125 Mg Chew Tab PO 125 mg QID GIOVANNY Administration Tamsulosin HCl 0.4 mg 11/05/24 09:00 11/06/24 09:27 Tamsulosin Hcl 0.4 Mg Capsule PO 0.4 mg DAILY GIOVANNY Administration Trazodone HCl 100 mg 11/05/24 21:00 11/05/24 21:10 Trazodone Hcl 50 Mg Tablet PO 100 mg HS GIOVANNY Administration Radiology Results: ITS Impressions Chest X-Ray 11/04/24 12:31 IMPRESSION: 1. Interstitial and airspace opacities in bilateral lower lung zones which could represent mild pulmonary edema or pneumonia. 2. Small right pleural effusion. Head CT 11/04/24 14:20 IMPRESSION: 1. Mild scattered white matter hypoattenuation consistent with chronic small vessel ischemic disease. No acute intracranial process. Labs Labs: Laboratory Results - last 24 hr 11/06/24 11/06/24 05:29 05:32 WBC 8.5 RBC 3.24 L Hgb 9.8 L Hct 31.4 L MCV 96.9 MCH 30.2 MCHC 31.2 L RDW 14.2 Plt Count 244 MPV 10.8 H Immature Gran % (Auto) 0.5 Neut % (Auto) 73.1 Lymph % (Auto) 11.7 L [place] % (Auto) 12.9 H Eos % (Auto) 1.6 Baso % (Auto) 0.2 Lymph # (Auto) 1.00 [place] # (Auto) 1.1 H Eos # (Auto) 0.1 Baso # (Auto) 0.0 Abs Immat Gran (auto) 0.04 H Absolute Neuts (auto) 6.2 Absolute Nucleated RBC 0.000 Nucleated RBC % 0.0 Sodium 134 L Potassium 4.0 Chloride 102 Carbon Dioxide 27 Anion Gap 5 BUN 31 H Creatinine 1.60 H Estim Creat Clear Calc 35 Estimated GFR 42 L Glucose 137 H Calcium 9.0 Total Bilirubin 0.7 AST 40 ALT 24 Alkaline Phosphatase 91 NT-Pro-B Natriuret Pep 1330 H Total Protein 7.0 Albumin 3.4 L
--- NOTE | 2024-11-06 15:35 | P.DS_ITS ---
DS: Admitting Diagnosis Discharge Date 11/06/24 Admitting Diagnosis Pneumonia Ischemic cardiomyopathy Acute kidney injury superimposed on chronic kidney disease Chronic hypoxic respiratory failure on home oxygen Acute on chronic diastolic CHF COPD Hypertension Anxiety disorder Spinal stenosis Left footdrop GERD DS: Discharge Diagnosis Discharge Diagnosis (1) Acute on chronic respiratory failure with hypoxia: Code(s): J96.21 - Acute and chronic respiratory failure with hypoxia Status: Acute (2) Pneumonia: Code(s): J18.9 - Pneumonia, unspecified organism Status: Acute (3) Acute kidney injury superimposed on chronic kidney disease: Code(s): N17.9 - Acute kidney failure, unspecified; N18.9 - Chronic kidney disease, unspecified Status: Acute (4) CHF (congestive heart failure), NYHA class I: Qualifiers: Congestive heart failure type: diastolic Congestive heart failure chronicity: chronic Qualified Code(s): I50.32 - Chronic diastolic (congestive) heart failure Code(s): I50.9 - Heart failure, unspecified Status: Chronic (5) COPD (chronic obstructive pulmonary disease): Qualifiers: COPD type: unspecified COPD Qualified Code(s): J44.9 - Chronic obstructive pulmonary disease, unspecified Code(s): J44.9 - Chronic obstructive pulmonary disease, unspecified Status: Chronic (6) HTN (hypertension): Qualifiers: Hypertension type: primary hypertension Qualified Code(s): I10 - Essential (primary) hypertension Code(s): I10 - Essential (primary) hypertension Status: Chronic (7) Anxiety disorder, unspecified: Code(s): F41.9 - Anxiety disorder, unspecified Status: Acute (8) GERD (gastroesophageal reflux disease): Code(s): K21.9 - Gastro-esophageal reflux disease without esophagitis Status: Acute (9) Hyperlipidemia: Qualifiers: Hyperlipidemia type: mixed hyperlipidemia Qualified Code(s): E78.2 - Mixed hyperlipidemia Code(s): E78.5 - Hyperlipidemia, unspecified Status: Acute (10) BPH (benign prostatic hyperplasia): Code(s): N40.0 - Benign prostatic hyperplasia without lower urinary tract symptoms Status: Acute DS: Summary Hospital Course Reason for hospitalization: Pneumonia Ischemic cardiomyopathy Acute kidney injury superimposed on chronic kidney disease Chronic hypoxic respiratory failure on home oxygen Acute on chronic diastolic CHF COPD Hypertension Anxiety disorder Spinal stenosis Left footdrop GERD Hospital Course: This is an 79-year-old male who presented to the hospital on 11/04/2024 with worsening cough, sputum production, chills, shortness of breath, body aches, decreased appetite. Workup in the hospital included a chest x-ray which shown interstitial airspace opacities in bilateral lower lung zones which represent pulmonary edema versus pneumonia, small right pleural effusion. Head CT was also done and showed mild scattered white matter hypoattenuation consistent with chronic small-vessel ischemic disease, no acute intracranial process. Initial labs shown a in normal white blood cell count of 9.8, hemoglobin 10.3, sodium 135, creatinine 1.50, EGFR 45, blood sugar ranging 105-121, lactic acid was normal at 0.7, proBNP 1200. Respiratory panel was negative for influenza a and B, RSV, COVID. Blood cultures were obtained and are pending. EKG showed sinus rhythm with left axis deviation with a rate of 75, QTC 465. Patient was given 60 mg IV push Lasix, Flomax, Rocephin, azithromycin, and Ativan while in the ED. Today he is feeling much better. He is back to his baseline O2 requirements. Antibiotics switched to orals. Patient is stable for discharge. Final diagnosis: Acute on chronic hypoxic respiratory failure, community- acquired pneumonia, acute kidney injury superimposed on chronic kidney disease, acute on chronic diastolic CHF Status at Discharge Cognitive/behavioral status at discharge: Alert oriented x4 Functional status at discharge: uses cane/walker Overall status at discharge: patient is progressing back to baseline Time Spent with Patient Time attestation: Total time spent providing and/or coordinating discharge services: Time spent: Greater than 30 minutes Exam Narrative: General: In no acute distress, well nourished Cardiac: Normal S1 and S2. No murmur, gallops or friction rubs, peripheral pulses intact. Respiratory: Lungs clear to auscultation, no adventitious lung sounds, currently on 3 L nasal cannula Gastrointestinal: soft, non-distended, non-tender, normoactive bowel sounds. : voiding without difficulty. Neuro: Alert and oriented x4 DS: Data Data Completed and Pending Completed studies during hospitalization: Head CT Chest X-ray x2 Pending studies at discharge: blood cultures Labs on day of discharge: Labs from last 24 hours 11/06/24 11/06/24 05:32 05:29 WBC 8.5 RBC 3.24 L Hgb 9.8 L Hct 31.4 L MCV 96.9 MCH 30.2 MCHC 31.2 L RDW 14.2 Plt Count 244 MPV 10.8 H Immature Gran % (Auto) 0.5 Neut % (Auto) 73.1 Lymph % (Auto) 11.7 L [place] % (Auto) 12.9 H Eos % (Auto) 1.6 Baso % (Auto) 0.2 Lymph # (Auto) 1.00 [place] # (Auto) 1.1 H Eos # (Auto) 0.1 Baso # (Auto) 0.0 Abs Immat Gran (auto) 0.04 H Absolute Neuts (auto) 6.2 Absolute Nucleated RBC 0.000 Nucleated RBC % 0.0 Sodium 134 L Potassium 4.0 Chloride 102 Carbon Dioxide 27 Anion Gap 5 BUN 31 H Creatinine 1.60 H Estim Creat Clear Calc 35 Estimated GFR 42 L Glucose 137 H Calcium 9.0 Total Bilirubin 0.7 AST 40 ALT 24 Alkaline Phosphatase 91 NT-Pro-B Natriuret Pep 1330 H Total Protein 7.0 Albumin 3.4 L Preliminary micro results at discharge 11/04/24 12:45 Blood Culture - Preliminary Blood 11/04/24 12:37 Blood Culture - Preliminary Blood Procedures/Treatments: None Discharge Plan Discharge Attending physician on discharge: Luiz Tejeda Discharging Clinician: Kim Augustin Anticipated Discharge Date/Time: 11/06/24 15:28 Patient Disposition: Home, Self-Care Activity: as tolerated Diet: as tolerated Discharge Instructions: * Take all of your medication as prescribed even if you are feeling better * If you are experiencing diarrhea you may take over the counter Imodium for relief * Follow up with your primary care doctor in 1 week after you finish antibiotics. Patient Instructions: Antibiotic Form, Amoxicillin/Clavulanate Potassium (By mouth), Azithromycin (By mouth), Bacterial Pneumonia (DC) Patient Language: Malaysian Stand Alone Forms: General Discharge Information Follow-up/Referrals: Naveed Mcintosh MD [Primary Care Provider] - 1 Week Discharge Medications: New azithromycin 250 mg tablet 250 mg PO DAILY 4 Days Qty: 4 0RF Rx Instructions: start on day 2 of therapy amoxicillin-pot clavulanate 875-125 mg tablet 1 tablet PO Q12H Qty: 10 0RF Saccharomyces boulardii [Florastor] 250 mg Capsule 250 mg PO TID Qty: 30 0RF Continued Mucinex 1,200 mg tablet extended release 12hr 1,200 mg PO BID PRN (Reason: cough) nitroglycerin 0.3 mg tablet, sublingual 0.3 mg sublingual Q5M PRN (Reason: Chest Pain) Rx Instructions: do not exceed 3 doses per episode finasteride [Proscar] 5 mg tablet 5 mg PO DAILY acetaminophen [Tylenol Extra Strength] 500 mg tablet 500 mg PO Q6H PRN (Reason: Pain) multivitamin Tablet 1 tablet PO DAILY ipratropium-albuterol 0.5 mg-3 mg(2.5 mg base)/3 mL solution for nebulization 3 ml inhalation Q8H PRN (Reason: shortness of breath or wheezing) Qty: 180 5RF carvedilol 12.5 mg tablet 12.5 mg PO BID (DME) nebulizer and compressor Device See Rx Instructions .Route Qty: 1 0RF Rx Instructions: As directed (DME) nebulizer accessories Kit See Rx Instructions .Route Qty: 1 0RF Rx Instructions: As directed Zyrtec 10 mg Capsule 10 mg PO DAILY PRN (Reason: allergies) polyethylene glycol 3350 [Miralax] 17 gram Powder In Packet 17 g PO QAM PRN (Reason: Constipation) Qty: 30 0RF simethicone [Gas-X Extra Strength] 125 mg Capsule 125 mg PO QID Qty: 120 0RF aspirin 81 mg Tablet,Delayed Release (Dr/Ec) 81 mg PO DAILY Qty: 90 0RF furosemide 40 mg tablet 40 mg PO BID Patient Comments: recent ordered to BID fenofibrate 160 mg tablet 160 mg PO DAILY Qty: 90 2RF losartan 50 mg tablet 50 mg PO DAILY Qty: 90 3RF sulindac 200 mg tablet 200 mg PO BID Qty: 180 1RF Linzess 290 mcg capsule See Rx Instructions .ROUTE .COMPLEX Qty: 90 3RF Dose Instruction: TAKE 1 CAPSULE BY MOUTH DAILY Rx Instructions: TAKE 1 CAPSULE BY MOUTH DAILY esomeprazole magnesium 20 mg capsule,delayed release(DR/EC) See Rx Instructions .ROUTE .COMPLEX Qty: 90 3RF Dose Instruction: TAKE 1 CAPSULE BY MOUTH DAILY Rx Instructions: TAKE 1 CAPSULE BY MOUTH DAILY sertraline 50 mg tablet 50 mg PO DAILY Qty: 90 3RF Breztri Aerosphere 160-9-4.8 mcg/actuation HFA aerosol inhaler See Rx Instructions .ROUTE .COMPLEX Qty: 10.7 5RF Dose Instruction: INHALE 2 PUFFS BY MOUTH TWICE DAILY. RINSE AND SPIT AFTER USE Rx Instructions: INHALE 2 PUFFS BY MOUTH TWICE DAILY. RINSE AND SPIT AFTER USE trazodone 100 mg tablet 100 mg PO HS Qty: 90 1RF baclofen 10 mg tablet 10 mg PO DAILY PRN (Reason: Spasms) Qty: 30 2RF etodolac 500 mg tablet 500 mg PO BID Qty: 60 0RF bupropion HCl 150 mg tablet sustained-release 12 hr 150 mg PO BID Qty: 180 2RF albuterol sulfate 90 mcg/actuation HFA aerosol inhaler 2 puff INHALATION Q4H PRN (Reason: Shortness Of Breath Or Wheezing) Qty: 8.5 5RF tamsulosin 0.4 mg capsule 0.4 mg PO DAILY Qty: 90 3RF morphine 30 mg tablet extended release 30 mg PO QAM Qty: 30 0RF atorvastatin 80 mg tablet 80 mg PO DAILY Qty: 90 0RF lorazepam 0.5 mg tablet 0.5 mg PO BID PRN (Reason: anxiety) Qty: 40 1RF Date of admission: 11/04/24 17:18 Primary Care Provider: Naveed Mcintosh Admitting Provider: Luiz Tejeda Attending physician on admission: Kim Augustin Condition: Improved Quality VTE Prophylaxis VTE prophylaxis: mechanical ordered Hospitalist MIPS Heart Failure (Exclusion) Patient has history of Heart Transplant or Left Ventricular Assistive Device?: No IF YES, STOP HERE Heart Failure (Qualifier) Patient has current or prior documentation of LVEF less than or equal to 40%, or mod/servere depressed LVSF?: No IF NO, STOP HERE
== END 2024-11-06 17:34 | disposition home or self-care (01) ==
LOC: ANHED 18:26 → ANH3MED 18:57
PROVIDERS: Admitting Provider Internal Medicine; Emergency Provider Emergency Medicine; PCP Family Medicine Adolescent Medicine; Visit Provider Nurse Practitioner Acute Care
DX: J18.9 Pneumonia, unspecified organism (principal); J44.0 Chronic obstructive pulmonary disease with (acute) lower respiratory infection; J43.9 Emphysema, unspecified; I25.5 Ischemic cardiomyopathy; J96.21 Acute and chronic respiratory failure with hypoxia; I13.0 Hypertensive heart and chronic kidney disease with heart failure and stage 1 through stage 4 chronic kidney disease, or unspecified chronic kidney disease; I50.33 Acute on chronic diastolic (congestive) heart failure; N18.30 Chronic kidney disease, stage 3 unspecified; N17.9 Acute kidney failure, unspecified; Z20.822 Contact with and (suspected) exposure to COVID-19; I25.10 Atherosclerotic heart disease of native coronary artery without angina pectoris; I25.2 Old myocardial infarction; I35.0 Nonrheumatic aortic (valve) stenosis; I71.40 Abdominal aortic aneurysm, without rupture, unspecified; M17.0 Bilateral primary osteoarthritis of knee; Z99.81 Dependence on supplemental oxygen; F32.A Depression, unspecified; F41.9 Anxiety disorder, unspecified; K21.9 Gastro-esophageal reflux disease without esophagitis; E78.2 Mixed hyperlipidemia; B02.29 Other postherpetic nervous system involvement; M21.372 Foot drop, left foot; G25.0 Essential tremor; M19.012 Primary osteoarthritis, left shoulder; M19.011 Primary osteoarthritis, right shoulder; M48.061 Spinal stenosis, lumbar region without neurogenic claudication; G89.29 Other chronic pain; G25.3 Myoclonus; E55.9 Vitamin D deficiency, unspecified; G25.81 Restless legs syndrome; N40.0 Benign prostatic hyperplasia without lower urinary tract symptoms; L51.9 Erythema multiforme, unspecified; Z87.891 Personal history of nicotine dependence; Z79.51 Long term (current) use of inhaled steroids; Z79.899 Other long term (current) drug therapy; Z86.12 Personal history of poliomyelitis; Z85.830 Personal history of malignant neoplasm of bone; Z86.0100 Personal history of colon polyps, unspecified; Z90.49 Acquired absence of other specified parts of digestive tract; Z95.5 Presence of coronary angioplasty implant and graft
CPT/HCPCS: 36415; 70450; 71046; 80053; 83605; 83880; 85025; 87040; 87637; 93005; 94640; 96365; 96375; 97161; 97165; 99285; A9270; G0378; J0456; J0696; J1940

== ENCOUNTER 2024-11-20 14:22 | Inpatient (IN) | payer MEDICARE, MEDICAID, SELFPAY ==
[2024-11-20] VITALS (19 sets, daily range): BP systolic 113–158; BP diastolic 47–85; PULSE 55–73; RESP 10–19; TEMP 36.2; O2SAT 93–100
--- NOTE | ~2024-11-20 | XR_ITS ---
XR chest 1V portable 11/22/2024 15:45 Indication: Shortness of breath Procedure: AP portable chest Comparison: 11/20/2024 Findings: Heart size normal. Coarse bilateral interstitial infiltrates, right greater than left. Smal l right pleural effusion. No pneumothorax. Impression: 1: Progression of coarse interstitial infiltrates, compatible with combination of chronic fibrosis an d pneumonia. 2: Small right pleural effusion. Reviewed, dictated and finalized at location A. S AND SERVICE CHANGE LEADER Impression: 1: Progression of coarse interstitial infiltrates, compatible with combination of chronic fibrosis and pneumonia. 2: Small right pleural effusion.
--- NOTE | ~2024-11-20 | US_ITS ---
EXAMINATION: US venous doppler [facility] DATE: 11/21/2024 08:33 INDICATION: Shortness of breath. Elevated d-dimer. TECHNIQUE: Grayscale ultrasound images without and with compression and Doppler ultrasound images of the bilateral lower extremity veins were obtained. COMPARISON: Ultrasound 10/11/2021 FINDINGS: The visualized portions of right common femoral vein, profunda (deep) femoral vein, femoral vein, pop liteal vein, peroneal veins, posterior tibial veins, and greater saphenous vein outflow are patent. The visualized portions of left common femoral vein, profunda femoral vein, femoral vein, popliteal v ein, peroneal veins, posterior tibial veins, and greater saphenous vein outflow are patent. IMPRESSION: 1. No deep venous thrombosis. Reviewed, dictated and finalized at location [] OGRAPH ENGRAVER
--- NOTE | ~2024-11-20 | CT_ITS ---
EXAMINATION: CTA chest PE protocol DATE: 11/20/2024 19:21 MARINE ENGINE MACHINIST INDICATION: Hypoxia elevated d-dimer TECHNIQUE: Computed tomographic angiography (CTA) of the chest was performed with 100 mL Omnipaque-35 0 intravenous contrast. The dose-length product was 273.63 mGy-cm. Maximum intensity projection 3D-re constructions of the aorta and other arteries were constructed by the technologist on a separate work station. COMPARISON: 08/29/2024 and 10/11/2021. FINDINGS: No filling defects within the main or proximal pulmonary arteries. The thoracic aorta is unremarkable. No aneurysmal dilatation or dissection. The heart is of normal size, without pericardial effusion. Panlobular emphysematous disease is identified. Patchy groundglass opacification detected bilaterally. Small bilateral pleural effusions with adjacent compressive atelectasis Multiple subcentimeter areas of decreased attenuation within the liver, unchanged dating back to 09/23. IMPRESSION: No pulmonary embolus. No aneurysmal dilatation or dissection within the thoracic aorta. Small bilateral pleural effusions with adjacent compressive atelectasis. Reviewed, dictated and finalized at location A. NE ENGINE MACHINIST
--- NOTE | ~2024-11-20 | XR_ITS ---
CHEST RADIOGRAPH, PA AND LATERAL CLINICAL HISTORY: SOB . COMPARISON: 11/04/2024 TECHNIQUE: PA and lateral views of the chest. FINDINGS The cardiomediastinal silhouette is unremarkable. Moderate right-sided pleural effusion. Patchy opacification of the left and right mid to lower lung short. The remainder the lungs are clear. IMPRESSION: Chronic bibasilar interstitial disease with a moderate right-sided pleural effusion Reviewed, dictated and finalized at location A. EXTINGUISHER CHARGER IMPRESSION: Chronic bibasilar interstitial disease with a moderate right-sided pleural effu fatemeh
--- NOTE | 2024-11-20 14:26 | ECG_ITS ---
Test Date: 2024-11-20 17:23:58 Measurements Intervals Kimberly Rate: 55 P: 23 DE: 218 QRS: -12 QRSD: 103 T: 3 QT: 447 QTc: 429 Interpretive Statements SINUS BRADYCARDIA WITH FIRST DEGREE AV BLOCK INCOMPLETE RIGHT BUNDLE BRANCH BLOCK [90+ ms QRS DURATION, TERMINAL R IN V1/V2, 40+ ms S IN I/aVL/V4/V5/V6] Compared to ECG 11/04/2024 11:48:25 First degree AV block now present Sinus rhythm no longer present Electronically Signed On 11-21-2024 18:26:02 [employer] by Benito Shelton M.D.
[2024-11-20 16:48] LABS: Basophils Percent Auto 0.1 % (0.2-1.2); Eosinophils Absolute Auto 0.1 K/mm3 (0-0.3); Eosinophils Percent Auto 1.5 % (0-4.4); Hematocrit 31.5 % (42.0-52.0); Immature Granulocyte Absolute 0.06 K/mm3 (0.00-0.031); Immature Granulocyte Percent A 0.6 % (0-0.5); Lymphocytes Absolute Auto 1.16 K/mm3 (0.9-3.2); Lymphocytes Percent Auto 12.1 % (18.3-44.2); Mean Corpuscular HGB Conc 31.7 g/dl (32-36); Mean Corpuscular Hemoglobin 31.5 pg (26-34); Mean Corpuscular Volume 99.4 fl (80-100); Mean Platelet Volume 10.9 fl (7.4-10.4); Monocytes Absolute Auto 0.8 K/mm3 (0.1-0.6); Monocytes Percent Auto 8.7 % (2.6-8.5); Neutrophils Absolute Auto 7.4 K/mm3 (1.3-6.7); Platelet Count Result 275 k/mm3 (150-375); Red Blood Count 3.17 M/mm3 (4.6-6.20); Red Cell Distribution Width 14.6 % (11.5-14.5); White Blood Count 9.6 K/mm3 (4.5-10.0)
--- NOTE | 2024-11-20 16:51 | ED_ITS ---
HPI - General Adult General Chief complaint: Shortness of Breath/Dyspnea Stated complaint: cant get my breath Time Seen by Provider: 11/20/24 16:28 History of Present Illness HPI narrative: This is an 79-year-old male history of acute on chronic respiratory failure on 3 L home oxygen presenting with decreased exercise tolerance. Patient was admitted our hospital and treated for CHF/ pneumonia and discharged on November 06. Since then the patient has been living with his son. He has had no energy. He has been sleeping all the time. He becomes winded just walking to the restroom. He has been taking his medications as instructed. The patient's son roberto him in because he is concerned that his father's continuing to deteriorate. Patient says that he is winded but denies fevers, chest pain, abdominal pain, lower extremity edema of he has had a productive cough. Related Data Home Medications ?Medication ?Instructions ?Recorded ?Confirmed ?Last Taken ?Type acetaminophen 500 mg tablet 500 mg PO Q6H PRN Pain 03/18/23 11/04/24 06/13/23 20:55 History (Tylenol Extra Strength) finasteride 5 mg tablet (Proscar) 5 mg PO DAILY 03/18/23 11/04/24 11/03/24 History multivitamin 1 tablet PO DAILY 03/18/23 11/04/24 11/03/24 History nitroglycerin 0.3 mg sublingual 0.3 mg sublingual Q5M PRN Chest 03/18/23 11/04/24 Unknown History tablet Pain cetirizine 10 mg capsule (Zyrtec) 10 mg PO DAILY PRN allergies 06/13/23 11/04/24 11/03/24 History carvedilol 12.5 mg tablet 12.5 mg PO BID 02/25/24 11/04/24 11/03/24 History guaifenesin 1,200 mg tablet, 1,200 mg PO BID PRN cough 08/11/24 11/04/24 Unknown History extended release 12 hr (Mucinex) furosemide 40 mg tablet 40 mg PO BID 11/04/24 11/04/24 11/03/24 History Allergies Allergy/AdvReac Type Severity Reaction Status Date / Time clonazepam AdvReac Severe Drowsy Verified 11/05/24 03:02 roflumilast (From Daliresp) AdvReac Severe Diarrhea Verified 11/05/24 03:02 [facility] Past Medical History Medical History (Updated 11/20/24 @ 20:06 by Moy Murillo MD) Cancer of lower jaw bone (~1986) Vitamin D deficiency Essential hypertension Depression BPH (benign prostatic hyperplasia) CKD (chronic kidney disease) stage 3, GFR 30-59 ml/min Although patient creatinine is been within normal in the past patient's GFR has been below 59 on most lab values since January 2023 Chronic hypoxic respiratory failure, on home oxygen therapy Erythema multiforme Essential tremor Hyperlipidemia Postherpetic neuralgia Myoclonus 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, left shoulder Primary osteoarthritis, right shoulder Bilateral primary osteoarthritis of knee Abdominal aortic aneurysm, without rupture 02/07 CT Restless legs syndrome Spinal stenosis, lumbar region without neurogenic claudication History of colon polyps Constipation COPD (chronic obstructive pulmonary disease) GERD (gastroesophageal reflux disease) Surgical History Surgical History H/O colonoscopy with polypectomy History of bowel resection Due to obstruction Presence of coronary angioplasty implant and graft History of coronary artery stent placement X2 History of mandibular surgery 1986 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 Bone removed from right hip for reconstructive surgery H/O rotator cuff surgery Bilateral S/P tonsillectomy and adenoidectomy History of colon resection Family History Family History Mother Diabetes mellitus Acute myocardial infarction Father Colon cancer COPD (chronic obstructive pulmonary disease) Sibling Colon cancer Acute myocardial infarction Lung cancer COPD (chronic obstructive pulmonary disease) Sibling COPD (chronic obstructive pulmonary disease) Sibling Congestive heart failure Sibling Dementia Social History Social History Social History: The patient lives with his son and [id number]. Patient is a . The patient quit smoking in 2018. He also gave up alcohol many years ago. No marijuana or illicit drugs. 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 The patient has 5 biological children and raise 2 other children. Code status: Do not intubate Surrogate decision maker: Smoking packs per day: 2 Smoking cigarettes per day: 40.0 Years smoked: 40 Smoking pack-years: 80.00 Smoking status: Former smoker Tobacco type: cigarettes Second hand tobacco smoke exposure: No Alcohol intake: former Substance use: never Substance use type: does not use Other substance usage details: quit alcohol in 2010 Last use: Last alcohol use 2010 Do You Feel Safe in your Home?: Yes Lack of Transportation: No Lack of Food: Never True Current Housing: I Have Housing Concerned About Future Housing: No Difficulty Paying Gas/Electric Bills: No Difficulty Paying for Meds: No Currently Unemployed: No Education: Decline to Answer Difficulty w/ Childcare or Family Care: No Living arrangements: with family 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: retired Gender identity (if verbalized by the patient): Male Sexual Orientation (if Verbalized by the Patient): Straight or Heterosexual Spiritual care concerns: No Agree to blood products: Yes Exam 2 Narrative: APPEARANCE: No apparent distress. Head: atraumatic. EYES: EOMI, NOSE: Atraumatic NECK: Trachea midline RESPIRATORY: No increased rate of breathing , bibasilar crackles CARDIOVASCULAR: RRR, no peripheral edema ABDOMINAL: Non-distended soft nontender MUSCULOSKELETAl: No obvious deformities NEURO: Alert. Moving 4/4 extremities SKIN:: Warm, dry. Normal color PSYCHIATRIC: Normal affect Course Vital Signs Vital signs: Vital Signs Temperature 36.2 C L 11/20/24 14:23 Pulse Rate 57 L 11/20/24 14:23 Respiratory Rate 16 11/20/24 14:23 Blood Pressure 116/47 L 11/20/24 14:23 Pulse Oximetry 93 11/20/24 14:23 Oxygen Delivery Nasal Cannula 11/20/24 14:23 Oxygen Flow Rate 4 11/20/24 14:23 Temperature 36.2 C L 11/20/24 14:23 Pulse Rate 55 L 11/20/24 18:32 Respiratory Rate 10 L 11/20/24 18:32 Blood Pressure 121/48 L 11/20/24 18:32 Pulse Oximetry 99 11/20/24 18:32 Oxygen Delivery High Flow Nasal Cannula 11/20/24 16:44 Oxygen Flow Rate 3 11/20/24 16:44 Medical Decision Making MDM Narrative Medical decision making narrative: -Course: 79-year-old male is presenting with shortness of breath. patient is no longer capable walking more than 10 steps without becoming severely winded. Patient signed out pending CT PE, but will require admission regardless. Vital Signs Vital Signs: Vital Signs Temperature 36.2 C L 11/20/24 14:23 Pulse Rate 57 L 11/20/24 14:23 Respiratory Rate 16 11/20/24 14:23 Blood Pressure 116/47 L 11/20/24 14:23 Pulse Oximetry 93 11/20/24 14:23 Oxygen Delivery Nasal Cannula 11/20/24 14:23 Oxygen Flow Rate 4 11/20/24 14:23 Temperature 36.2 C L 11/20/24 14:23 Pulse Rate 55 L 11/20/24 18:32 Respiratory Rate 10 L 11/20/24 18:32 Blood Pressure 121/48 L 11/20/24 18:32 Pulse Oximetry 99 11/20/24 18:32 Oxygen Delivery High Flow Nasal Cannula 11/20/24 16:44 Oxygen Flow Rate 3 11/20/24 16:44 Lab Data 11/20/24 16:41 11/20/24 16:41 Labs: Lab Results 11/20/24 Range/Units 16:41 WBC 9.6 (4.5-10.0) K/mm3 RBC 3.17 L (4.6-6.20) M/mm3 Hgb 10.0 L (14.0-18.0) g/dL Hct 31.5 L (42.0-52.0) % MCV 99.4 (80-100) fl MCH 31.5 (26-34) pg MCHC 31.7 L (32-36) g/dl RDW 14.6 H (11.5-14.5) % Plt Count 275 (150-375) k/mm3 MPV 10.9 H (7.4-10.4) fl Immature Gran % (Auto) 0.6 H (0-0.5) % Neut % (Auto) 77.0 H (45.5-73.1) % Lymph % (Auto) 12.1 L (18.3-44.2) % [place] % (Auto) 8.7 H (2.6-8.5) % Eos % (Auto) 1.5 (0-4.4) % Baso % (Auto) 0.1 L (0.2-1.2) % Lymph # (Auto) 1.16 (0.9-3.2) K/mm3 [place] # (Auto) 0.8 H (0.1-0.6) K/mm3 Eos # (Auto) 0.1 (0-0.3) K/mm3 Baso # (Auto) 0.0 (0.0-0.1) K/mm3 Abs Immat Gran (auto) 0.06 H (0.00-0.031) K/mm3 Absolute Neuts (auto) 7.4 H (1.3-6.7) K/mm3 Absolute Nucleated RBC 0.000 (0.0-0.012) K/mm3 Nucleated RBC % 0.0 (0.0-0.2) % D-Dimer 1.28 H (<0.48) ug/mL Sodium 138 (137-145) mmol/L Potassium 4.4 (3.4-5.0) mmol/L Chloride 106 (98-107) mmol/L Carbon Dioxide 28 (22-30) mmol/L Anion Gap 4 (4-12) mmol/L BUN 31 H (9-20) mg/dL Creatinine 1.50 H (0.7-1.3) mg/dL Estim Creat Clear Calc 38 ml/min Estimated GFR 45 L (59 - ) Glucose 93 (65-110) mg/dL Calcium 8.9 (8.4-10.2) mg/dL Total Bilirubin 0.9 (0.2-1.3) mg/dL AST 29 (17-59) U/L ALT 15 (6-50) U/L Alkaline Phosphatase 86 (38-126) U/L NT-Pro-B Natriuret Pep 646 H (19.9-100) pg/mL Total Protein 7.0 (6.3-8.2) g/dL Albumin 3.6 (3.5-5.1) g/dL Influenza A (RT-PCR) Negative (Negative) Influenza B (RT-PCR) Negative (Negative) RSV (RT-PCR) Negative (Negative) SARS-CoV-2 RNA (RT-PCR) Negative (Negative) Discharge Plan Discharge Clinical Impression: Dyspnea on exertion CHF (congestive heart failure), NYHA class I Qualifiers: Congestive heart failure type: diastolic Congestive heart failure chronicity: c hronic Qualified Code(s): I50.32 - Chronic diastolic (congestive) heart failure Patient Disposition: Still a Patient Condition: Stable Patient Language: Greenlandic Prescriptions: No Action Mucinex 1,200 mg tablet extended release 12hr 1,200 mg PO BID PRN (Reason: cough) nitroglycerin 0.3 mg tablet, sublingual 0.3 mg sublingual Q5M PRN (Reason: Chest Pain) Rx Instructions: do not exceed 3 doses per episode finasteride [Proscar] 5 mg tablet 5 mg PO DAILY acetaminophen [Tylenol Extra Strength] 500 mg tablet 500 mg PO Q6H PRN (Reason: Pain) multivitamin Tablet 1 tablet PO DAILY ipratropium-albuterol 0.5 mg-3 mg(2.5 mg base)/3 mL solution for nebulization 3 ml inhalation Q8H PRN (Reason: shortness of breath or wheezing) Qty: 180 5RF carvedilol 12.5 mg tablet 12.5 mg PO BID (DME) nebulizer and compressor Device See Rx Instructions .Route Qty: 1 0RF Rx Instructions: As directed (DME) nebulizer accessories Kit See Rx Instructions .Route Qty: 1 0RF Rx Instructions: As directed Zyrtec 10 mg Capsule 10 mg PO DAILY PRN (Reason: allergies) polyethylene glycol 3350 [Miralax] 17 gram Powder In Packet 17 g PO QAM PRN (Reason: Constipation) Qty: 30 0RF simethicone [Gas-X Extra Strength] 125 mg Capsule 125 mg PO QID Qty: 120 0RF aspirin 81 mg Tablet,Delayed Release (Dr/Ec) 81 mg PO DAILY Qty: 90 0RF azithromycin 250 mg tablet 250 mg PO DAILY 4 Days Qty: 4 0RF Rx Instructions: start on day 2 of therapy amoxicillin-pot clavulanate 875-125 mg tablet 1 tablet PO Q12H Qty: 10 0RF furosemide 40 mg tablet 40 mg PO BID Patient Comments: recent ordered to BID Saccharomyces boulardii [Florastor] 250 mg Capsule 250 mg PO TID Qty: 30 0RF fenofibrate 160 mg tablet 160 mg PO DAILY Qty: 90 2RF losartan 50 mg tablet 50 mg PO DAILY Qty: 90 3RF sulindac 200 mg tablet 200 mg PO BID Qty: 180 1RF Linzess 290 mcg capsule See Rx Instructions .ROUTE .COMPLEX Qty: 90 3RF Dose Instruction: TAKE 1 CAPSULE BY MOUTH DAILY Rx Instructions: TAKE 1 CAPSULE BY MOUTH DAILY esomeprazole magnesium 20 mg capsule,delayed release(DR/EC) See Rx Instructions .ROUTE .COMPLEX Qty: 90 3RF Dose Instruction: TAKE 1 CAPSULE BY MOUTH DAILY Rx Instructions: TAKE 1 CAPSULE BY MOUTH DAILY sertraline 50 mg tablet 50 mg PO DAILY Qty: 90 3RF Breztri Aerosphere 160-9-4.8 mcg/actuation HFA aerosol inhaler See Rx Instructions .ROUTE .COMPLEX Qty: 10.7 5RF Dose Instruction: INHALE 2 PUFFS BY MOUTH TWICE DAILY. RINSE AND SPIT AFTER USE Rx Instructions: INHALE 2 PUFFS BY MOUTH TWICE DAILY. RINSE AND SPIT AFTER USE trazodone 100 mg tablet 100 mg PO HS Qty: 90 1RF baclofen 10 mg tablet 10 mg PO DAILY PRN (Reason: Spasms) Qty: 30 2RF etodolac 500 mg tablet 500 mg PO BID Qty: 60 0RF bupropion HCl 150 mg tablet sustained-release 12 hr 150 mg PO BID Qty: 180 2RF albuterol sulfate 90 mcg/actuation HFA aerosol inhaler 2 puff INHALATION Q4H PRN (Reason: Shortness Of Breath Or Wheezing) Qty: 8.5 5RF tamsulosin 0.4 mg capsule 0.4 mg PO DAILY Qty: 90 3RF morphine 30 mg tablet extended release 30 mg PO QAM Qty: 30 0RF atorvastatin 80 mg tablet 80 mg PO DAILY Qty: 90 0RF lorazepam 0.5 mg tablet 0.5 mg PO BID PRN (Reason: anxiety) Qty: 40 1RF Follow-up/Referrals: Naveed Mcintosh MD [Primary Care Provider] - Time of Disposition: 20:06
[2024-11-20 16:58] LABS: Alanine Aminotransferase 15 U/L (6-50); Albumin Level 3.6 g/dL (3.5-5.1); Alkaline Phosphatase 86 U/L (38-126); Anion Gap 4 mmol/L (4-12); Aspartate Amino Transferase 29 U/L (17-59); Bilirubin,Total 0.9 mg/dL (0.2-1.3); Blood Urea Nitrogen 31 mg/dL (9-20); Calcium 8.9 mg/dL (8.4-10.2); Carbon Dioxide 28 mmol/L (22-30); Chloride 106 mmol/L (98-107); Estimated CRCL calculation 38 ml/min; Estimated Glomerular Filt Rate 45; Glucose 93 mg/dL (65-110); Potassium 4.4 mmol/L (3.4-5.0); Sodium 138 mmol/L (137-145)
[2024-11-20 17:24] LABS: Influenza A QL RT-PCR Negative (Negative); Influenza B QL RT-PCR Negative (Negative); RSV RNA, RT-PCR Negative (Negative); SARS-CoV-2 RNA PCR Negative (Negative)
[2024-11-20 17:58] LABS: NT Pro B Type Natriuretic Pept 646 pg/mL (19.9-100)
[2024-11-20 18:03] LABS: D Dimer 1.28 ug/mL (<0.48)
--- NOTE | 2024-11-20 20:07 | PC.NURSE ---
pt ambulatory with pulse oximetry reading. pt baseline is on 3L NC of oxygen. pt ambulating with decreasing oxygen saturationg at 87%. edp made aware. pt placed back into bed and placed on 4L NC due to continued decreased oxygen saturation.
--- NOTE | 2024-11-20 20:10 | P.HP_ITS ---
H&P: HPI History of Present Illness Date/Time: 11/20/24 20:10 Chief Complaint: Shortness of breath. Narrative: This is a pleasant 79-year-old male with combined systolic and diastolic congestive heart failure, ischemic cardiomyopathy, chronic hypoxic respiratory failure on 3 L home oxygen, chronic obstructive pulmonary disease, hypertension, and other comorbidities who presented to the emergency department for evaluation of shortness of breath. The patient provides the following history. He was admitted to the hospital earlier in the month with acute on chronic hypoxic respiratory failure and pneumonia. He was discharged home on 11/06/2024 his baseline oxygen requirements and he reports feeling okay for couple of days. Unfortunately he has been increasingly short of breath since that time. In fact he has almost no exercise tolerance and is getting short of breath with day-to-day activity. His energy is poor and he has been fatigued, sleeping a lot more than usual. He has an occasional cough and wheeze however the cough is nonproductive despite taking Mucinex twice daily. He denies sick contacts, fevers, sinus congestion, sore throat, exertional chest pain, pleuritic pain, palpitations, orthopnea, paroxysmal nocturnal dyspnea, lower extremity edema, calf pain, dysphagia, concerns for aspiration, nausea, vomiting, diarrhea, and dysuria. In the ED: He was afebrile on arrival with stable vital signs. SpO2 is 98% on 4 L. labs were significant for hemoglobin of 10.0, D-dimer 1.28, BUN 31, creatinine 1.50, proBNP 646. He tested negative for influenza, RSV, and COVID. Chest CTA was negative for pulmonary embolus, aneurysmal dilatation or dissection, and showed small bilateral pleural effusions with adjacent compressive atelectasis. EKG showed sinus bradycardia with first-degree AV block and incomplete right bundle-branch block. He is being admitted in this setting for close monitoring and further workup Review of Systems Review of Systems: 12 systems were reviewed and are negativ e except for as per HPI. 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 History of tobacco use Polio (1952) Other chronic pain Aortic stenosis Mild - Echo 05/15/2022 NSTEMI (non-ST elevated myocardial infarction) (08/2019) Normal colonoscopy (04/2015) Ischemic cardiomyopathy Echocardiogram 09/2021: Mildly reduced left ventricular systolic function EF of 45-50%, grade 1 diastolic dysfunction, inferior wall inferior septal wall basal inferior wall and mid inferior lateral wall hypokinesis with mild left atrial and large Atherosclerotic heart disease of [place] coronary artery without angina pectoris Abdominal aortic aneurysm, without rupture 02/07 CT Restless legs syndrome Spinal stenosis, lumbar region without neurogenic claudication Surgical History Surgical History History of tonsillectomy and adenoidectomy History of repair of rotator cuff bilateral History of colonoscopy with polypectomy History of bowel resection due to obstruction Presence of coronary angioplasty implant and graft History of coronary artery stent placement X2 History of mandibular surgery (1986) reconstructive surgery right mandible related to cancer Family History Family History Mother Diabetes mellitus Acute myocardial infarction Father Colon cancer COPD (chronic obstructive pulmonary disease) Sibling Colon cancer Acute myocardial infarction Lung cancer COPD (chronic obstructive pulmonary disease) Sibling COPD (chronic obstructive pulmonary disease) Sibling Congestive heart failure Sibling Dementia Social History Social History Social History: Surrogate medical decision maker: Code status: Modified code, no intubation. Smoking packs per day: 2 Smoking cigarettes per day: 40.0 Years smoked: 40 Smoking pack-years: 80.00 Smoking status: Former smoker Tobacco type: cigarettes Second hand tobacco smoke exposure: No Alcohol intake: former Substance use: never Substance use type: does not use Other substance usage details: quit alcohol in 2010 Last use: Last alcohol use 2010 Do You Feel Safe in your Home?: Yes Lack of Transportation: No Lack of Food: Never True Current Housing: I Have Housing Concerned About Future Housing: No Difficulty Paying Gas/Electric Bills: No Difficulty Paying for Meds: No Currently Unemployed: No Education: Decline to Answer Difficulty w/ Childcare or Family Care: No Living arrangements: with family Additional living arrangements comments: . Lives in [place] with son and [id number]. 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: retired Additional occupation/education comments: [employer] Spiritual care concerns: No Agree to blood products: Yes Meds Home Medications and Allergies Home Medications ?Medication ?Instructions ?Recorded ?Confirmed ?Type acetaminophen 500 mg tablet 500 mg PO Q6H PRN Pain 03/18/23 11/04/24 History (Tylenol Extra Strength) finasteride 5 mg tablet (Proscar) 5 mg PO DAILY 03/18/23 11/04/24 History multivitamin 1 tablet PO DAILY 03/18/23 11/04/24 History nitroglycerin 0.3 mg sublingual 0.3 mg sublingual Q5M PRN Chest 03/18/23 11/04/24 History tablet Pain cetirizine 10 mg capsule (Zyrtec) 10 mg PO DAILY PRN allergies 06/13/23 11/04/24 History aspirin 81 mg tablet,delayed 81 mg PO DAILY #90 tabs 06/15/23 11/04/24 Rx release polyethylene glycol 3350 17 gram 17 g PO QAM PRN Constipation #30 ea 06/15/23 11/04/24 Rx oral powder packet (Miralax) simethicone 125 mg capsule (Gas-X 125 mg PO QID #120 caps 06/15/23 11/04/24 Rx Extra Strength) fenofibrate 160 mg tablet 160 mg PO DAILY #90 tabs 09/16/23 11/04/24 Rx losartan 50 mg tablet 50 mg PO DAILY #90 tabs 02/24/24 11/04/24 Rx carvedilol 12.5 mg tablet 12.5 mg PO BID 02/25/24 11/04/24 History nebulizer accessories #1 ea 04/12/24 11/04/24 Rx nebulizer and compressor #1 ea 04/12/24 11/04/24 Rx ipratropium 0.5 mg-albuterol 3 mg 3 ml inhalation Q8H PRN shortness 04/19/24 11/04/24 Rx (2.5 mg base)/3 mL nebulization of breath or wheezing #180 mL soln sulindac 200 mg tablet 200 mg PO BID #180 tabs 04/27/24 11/04/24 Rx esomeprazole magnesium 20 mg See Rx Instructions .Route 04/28/24 11/04/24 Rx capsule,delayed release .COMPLEX #90 caps linaclotide 290 mcg capsule See Rx Instructions .Route 04/28/24 11/04/24 Rx (Linzess) .COMPLEX #90 caps sertraline 50 mg tablet 50 mg PO DAILY #90 tabs 07/18/24 11/04/24 Rx budesonide 160 mcg-glycopyr 9 See Rx Instructions .Route 07/27/24 11/04/24 Rx mcg-formot 4.8 mcg/actuation HFA .COMPLEX #10.7 grams inhaler (Breztri Aerosphere) trazodone 100 mg tablet 100 mg PO HS Insomnia #90 tabs 08/07/24 11/04/24 Rx guaifenesin 1,200 mg tablet, 1,200 mg PO BID PRN cough 08/11/24 11/04/24 History extended release 12 hr (Mucinex) baclofen 10 mg tablet 10 mg PO DAILY PRN Spasms #30 tabs 08/25/24 11/04/24 Rx etodolac 500 mg tablet 500 mg PO BID #60 tabs 09/20/24 11/04/24 Rx bupropion HCl 150 mg tablet,12 hr 150 mg PO BID #180 tabs 09/22/24 11/04/24 Rx sustained-release albuterol sulfate 90 mcg/actuation 2 puff inhalation Q4H PRN 10/03/24 11/04/24 Rx aerosol inhaler Shortness Of Breath Or Wheezing #8.5 grams tamsulosin 0.4 mg capsule 0.4 mg PO DAILY #90 caps 10/12/24 11/04/24 Rx atorvastatin 80 mg tablet 80 mg PO DAILY #90 tabs 10/26/24 11/04/24 Rx morphine 30 mg tablet,extended 30 mg PO QAM #30 tabs 10/26/24 11/04/24 Rx release lorazepam 0.5 mg tablet 0.5 mg PO BID PRN anxiety #40 tabs 11/02/24 11/04/24 Rx amoxicillin 875 mg-potassium 1 tablet PO Q12H #10 tabs 11/04/24 Rx clavulanate 125 mg tablet azithromycin 250 mg tablet 250 mg PO DAILY 4 days #4 tabs 11/04/24 Rx furosemide 40 mg tablet 40 mg PO BID 11/04/24 11/04/24 History Saccharomyces jeradulardii 250 mg 250 mg PO TID #30 caps 11/06/24 Rx capsule (Florastor) Allergies Allergy/AdvReac Type Severity Reaction Status Date / Time clonazepam AdvReac Severe Drowsy Verified 11/05/24 03:02 roflumilast (From Daliresp) AdvReac Severe Diarrhea Verified 11/05/24 03:02 Vital Signs Vital Signs - 24 hr 11/20/24 14:23 11/20/24 16:35 11/20/24 16:44 Temperature 97.1 F L Pulse Rate 57 L 62 Respiratory Rate 16 14 Blood Pressure 116/47 L 146/59 H Pulse Oximetry 93 95 96 Oxygen Delivery Nasal Cannula High Flow Nasal Cannula Oxygen Flow Rate 4 3 11/20/24 16:47 11/20/24 17:02 11/20/24 17:29 Temperature Pulse Rate 61 57 L 58 L Respiratory Rate 12 16 17 Blood Pressure 120/73 130/55 L 126/85 Pulse Oximetry 97 99 100 Oxygen Delivery Oxygen Flow Rate 11/20/24 17:32 11/20/24 17:47 11/20/24 18:02 Temperature Pulse Rate 55 L 55 L 55 L Respiratory Rate 12 11 L 12 Blood Pressure 129/53 L 115/48 L 113/50 L Pulse Oximetry 99 98 98 Oxygen Delivery Oxygen Flow Rate 11/20/24 18:17 11/20/24 18:32 Temperature Pulse Rate 55 L 55 L Respiratory Rate 13 10 L Blood Pressure 113/49 L 121/48 L Pulse Oximetry 99 99 Oxygen Delivery Oxygen Flow Rate Exam Narrative: General: Well-developed, frail-appearing elderly male in the semi-Calero position in bed. Weight: 84 kg. BMI: 25.8. HEENT: PERRL, EOMI. Sclera anicteric. Conjunctiva mildly injected. Tacky mucous membranes. Neck: Supple. No JVD. Respiratory: Currently on 4 L nasal cannula. Respirations are nonlabored and he is speaking full sentences. Lung sounds are a bit diminished at the bases with scattered rhonchi in the right upper lobe. Cardiovascular: Regular rate and rhythm with S1-S2. Gastrointestinal: Abdomen is soft, nontender, and nondistended with positive bowel sounds. Skin: Warm and dry. No rash or lesions on limited exam. Extremities: No cyanosis, clubbing, or significant edema. Radial and pedal pulses intact. No palpable knots or cords. Negative Goldy sign bilaterally. Neurological: Alert. Cranial nerves 2-12 are grossly intact. No gross focal deficits to casual conversation. Psychiatric: Pleasant and cooperative with normal mood and affect. Judgment and insight intact. H&P: Results Labs Labs: Short CBC 11/20/24 Range/Units 16:41 WBC 9.6 (4.5-10.0) K/mm3 Hgb 10.0 L (14.0-18.0) g/dL Hct 31.5 L (42.0-52.0) % Plt Count 275 (150-375) k/mm3 BMP 11/20/24 16:41 Sodium 138 Potassium 4.4 Chloride 106 Carbon Dioxide 28 BUN 31 H Creatinine 1.50 H Glucose 93 Calcium 8.9 Liver Function 11/20/24 Range/Units 16:41 Total Bilirubin 0.9 (0.2-1.3) mg/dL AST 29 (17-59) U/L ALT 15 (6-50) U/L Alkaline Phosphatase 86 (38-126) U/L Albumin 3.6 (3.5-5.1) g/dL Impressions Chest X-Ray 11/20/24 14:40 IMPRESSION: Chronic bibasilar interstitial disease with a moderate right-sided pleural effusion Chest CTA 11/20/24 19:21 IMPRESSION: No pulmonary embolus. No aneurysmal dilatation or dissection within the thoracic aorta. Small bilateral pleural effusions with adjacent compressive atelectasis. Assessment and Plan Assessment and plan (1) Shortness of breath: Code(s): R06.02 - Shortness of breath Status: Acute (2) Pleural effusion: Code(s): J90 - Pleural effusion, not elsewhere classified Status: Inactive (3) Chronic hypoxic respiratory failure, on home oxygen therapy: Code(s): J96.11 - Chronic respiratory failure with hypoxia; Z99.81 - Dependence on supplemental oxygen Status: Acute (4) Chronic obstructive pulmonary disease: Code(s): J44.9 - Chronic obstructive pulmonary disease, unspecified Status: Acute (5) Congestive heart failure: Code(s): I50.9 - Heart failure, unspecified Status: Acute (6) Chronic kidney disease, stage 3: Code(s): N18.30 - Chronic kidney disease, stage 3 unspecified Status: Acute (7) Essential hypertension: Code(s): I10 - Essential (primary) hypertension Status: Acute Plan The patient presented to the emergency department for evaluation of shortness of breath with minimal activity as detailed in HPI. Labs, imaging, EKG, and all reports were personally reviewed. Chest CTA was negative for pulmonary embolism and showed small bilateral pleural effusions with adjacent compressive atelectasis. Right-sided pleural effusion was noted to be moderate in size on chest x-ray though does not appear significant enough to drain. He does not appear volume overloaded thus will stop IV diuretics. Continue scheduled bronchodilators. Encourage incentive spirometry. Cornet and Mucinex ordered to help mobilize secretions as he does have quite a bit of rhonchi in the right upper lobe. No indication for steroids as there was no significant wheezing on exam. Echocardiogram has been ordered given his history of ischemic cardiomyopathy to see if perhaps he has worsening heart failure as a contributing factor to his shortness of breath. Blood pressures were reviewed and they are stable. Renal function is stable on review of previous labs. His home medications will be reviewed and resumed as appropriate. Findings and treatment plan were discussed with the patient. Questions were solicited and answered to satisfaction. The patient's medical management will be taken over by the hospitalist team in a.m. Quality VTE Prophylaxis VTE prophylaxis: pharmacologic ordered The patient has been admitted under observation status. Hospitalist MIPS Advance Care Plan I have confirmed that the patient's Advanced Care Plan is present, code status is documented, or surrogate decision maker is listed in patient medical record.: Yes Medication Reconciliation I have utilized all available resources to obtain, update and review the patients current medications (includes all prescriptions, OTC, herbals, cannabis, and nutritional supplements).: Yes
--- NOTE | 2024-11-20 21:50 | PC.NURSE ---
thsi rn did not administered furosemide at this time due to decreased blood pressure of 102/79. no dose required at this time.
--- NOTE | 2024-11-20 21:54 | PC.NURSE ---
hospitalist Triny aware of furosemide not being given.
[2024-11-20] MEDS: IPRATROPIUM 0.5 MG/ALBUTEROL SULFATE 2.5 MG AMPUL.NEB 3 ML INHALATION (22:57)
[2024-11-21] VITALS (21 sets, daily range): BP systolic 118–169; BP diastolic 52–90; PULSE 64–113; RESP 12–28; TEMP 36.7–37; O2SAT 93–99; BMI 25.8
--- NOTE | 2024-11-21 01:16 | PC.NURSE ---
pt requesting to medications to sleep . this rn notified hospitalist Triny
[2024-11-21] MEDS: traZODone HCL 50 MG TABLET PO (02:12)
[2024-11-21] MEDS: IPRATROPIUM 0.5 MG/ALBUTEROL SULFATE 2.5 MG AMPUL.NEB 3 ML INHALATION ×4 (03:06→20:28)
[2024-11-21 07:06] LABS: Basophils Percent Auto 0.1 % (0.2-1.2); Eosinophils Absolute Auto 0.2 K/mm3 (0-0.3); Hematocrit 33.7 % (42.0-52.0); Hemoglobin 10.5 g/dL (14.0-18.0); Immature Granulocyte Absolute 0.07 K/mm3 (0.00-0.031); Immature Granulocyte Percent A 0.8 % (0-0.5); Mean Corpuscular HGB Conc 31.2 g/dl (32-36); Mean Corpuscular Hemoglobin 31.3 pg (26-34); Mean Corpuscular Volume 100.6 fl (80-100); Mean Platelet Volume 10.6 fl (7.4-10.4); Monocytes Absolute Auto 0.7 K/mm3 (0.1-0.6); Monocytes Percent Auto 7.9 % (2.6-8.5); Neutrophils Absolute Auto 7.2 K/mm3 (1.3-6.7); Neutrophils Percent Auto 79.2 % (45.5-73.1); Platelet Count Result 288 k/mm3 (150-375); Red Blood Count 3.35 M/mm3 (4.6-6.20); Red Cell Distribution Width 14.4 % (11.5-14.5)
[2024-11-21 07:19] LABS: Anion Gap 4 mmol/L (4-12); Blood Urea Nitrogen 29 mg/dL (9-20); Calcium 9.2 mg/dL (8.4-10.2); Carbon Dioxide 29 mmol/L (22-30); Chloride 105 mmol/L (98-107); Estimated CRCL calculation 38 ml/min; Estimated Glomerular Filt Rate 45; Glucose 107 mg/dL (65-110); Potassium 3.8 mmol/L (3.4-5.0); Sodium 138 mmol/L (137-145)
--- NOTE | 2024-11-21 08:03 | PC.NURSE ---
RN spoke with hospitalist about pt home meds, informed her pt was requesting his morning meds and that they are updated in the chart
[2024-11-21] MEDS: guaiFENesin 12 HR 600 MG TABCR 1200 MG PO ×2 (09:24→21:09)
--- NOTE | 2024-11-21 09:59 | P.PNIM_ITS ---
Progress Note: A&P Assessment and Plan (1) Chronic hypoxic respiratory failure, on home oxygen therapy: Code(s): J96.11 - Chronic respiratory failure with hypoxia; Z99.81 - Dependence on supplemental oxygen Status: Acute Assessment and Plan: Chronic, back on baseline 3L NC. (2) Pleural effusion: Code(s): J90 - Pleural effusion, not elsewhere classified Status: Inactive Assessment and Plan: - CXR: Chronic bibasilar interstitial disease with a moderate right-sided pleural effusion - Chest CTA No pulmonary embolus. No aneurysmal dilatation or dissection within the thoracic aorta. Small bilateral pleural effusions with adjacent compressive atelectasis. - Venous doppler: No DVT - Complicating Factors: COPD with chronic oxygen supplementation (3L NC) - Viral PCR: negative for Flu/COVID/RSV - Right-sided pleural effusion was noted to be moderate in size on chest x-ray though does not appear significant enough to drain. - Does not appear volume overloaded thus will stop IV diuretics and resume his home lasix 60 daily as prescribed - Continue scheduled bronchodilators. Encourage incentive spirometry. - Cornet and Mucinex ordered to help mobilize secretions as he does have quite a bit of rhonchi in the right upper lobe. - Monitor vital signs, I&Os, neuro status and patient is a fall risk - Follow WBC, serum electrolytes, temperature curves and cultures (3) Chronic obstructive pulmonary disease: Code(s): J44.9 - Chronic obstructive pulmonary disease, unspecified Status: Acute Assessment and Plan: Chronic, does not appear to be in acute exacerbation given no wheezing heard on exam. - monitor (4) Congestive heart failure: Code(s): I50.9 - Heart failure, unspecified Status: Acute Assessment and Plan: chronic, continue home medications - echo ordered (5) Chronic kidney disease, stage 3: Code(s): N18.30 - Chronic kidney disease, stage 3 unspecified Status: Acute Assessment and Plan: BUN/Cr 31/1.5 on admission, appears around baseline. - BUN/Cr 29/1.5 on am labs - Renally dose medications - Avoid nephrotoxic medications - Monitor I/O (6) Essential hypertension: Code(s): I10 - Essential (primary) hypertension Status: Acute Assessment and Plan: Chronic, continue home medications - carvedilol 12.5 mg BID - lasix 60 mg daily - losartan 50 mg daily - blood pressure has been stable, continue to monitor Subjective Date/time seen: 11/21/24 09:59 Interval history: 79-year-old male with combined systolic and diastolic congestive heart failure, ischemic cardiomyopathy, chronic hypoxic respiratory failure on 3 L home oxygen, chronic obstructive pulmonary disease, hypertension, and other comorbidities who presented to the emergency department for evaluation of shortness of breath. Patient is sitting up in his bed endorsing shortness of breath and back pain. He has no other complaints denying chest pain, palpitations, nausea/vomiting and abdominal pain. He remains on his 3L NC baseline. Call obtained from patients RN stating that he was complaining of chest pain. Returned to patients room and chest pain had resolved. He states that he was moving in bed and became increasingly short of breath and developed a sharp pain to the left side of his chest and left shoulder area. This lasted about a minute or two before resolved. Patient went on to say that this felt similar to his p rior anxiety induced chest pain episodes. Vitals stable. EKG sinus rhythm with occasional PVC. Troponin negative. Review of Systems Review of Systems: All systems reviewed & are unremarkable except as noted in HPI and below Exam Narrative: AF HR 92 RR 20 Spo2 96 3.5 L NC BP 133/53 General: male in no acute respiratory distress who is nontoxic appearing, lying semi recumbent in bed. HEENT: Normocephalic. Atraumatic. Extraocular movement intact. Sclera clear and anicteric.No facial asymmetry. Chest: Lungs are coarse/diminished to auscultation bilaterally. No wheezes or crackles. CV: Heart was regular rate and rhythm. S1/S2. No murmurs, gallops, or rubs. Abd: Abdomen was soft. Nontender. Nondistended. Postive bowel sounds. No organomegaly or masses. Ext: No clubbing, cyanosis, or edema. 2+ DP pulses bilaterally. Neuro: Patient is alert and oriented x4. Strenth is 5/5 in both upper and lower extremities. Cranial nerves 2-12 are intact. Speech is clear. Objective Data Vital Signs Vital Signs: Vital Signs - 24 hr 11/20/24 14:23 11/20/24 16:35 11/20/24 16:44 Temperature 97.1 F L Pulse Rate 57 L 62 Respiratory Rate 16 14 Blood Pressure 116/47 L 146/59 H Pulse Oximetry 93 95 96 Oxygen Delivery Nasal Cannula High Flow Nasal Cannula Oxygen Flow Rate 4 3 Fraction of Inspired Oxygen 11/20/24 16:47 11/20/24 17:02 11/20/24 17:29 Temperature Pulse Rate 61 57 L 58 L Respiratory Rate 12 16 17 Blood Pressure 120/73 130/55 L 126/85 Pulse Oximetry 97 99 100 Oxygen Delivery Oxygen Flow Rate Fraction of Inspired Oxygen 11/20/24 17:32 11/20/24 17:47 11/20/24 18:02 Temperature Pulse Rate 55 L 55 L 55 L Respiratory Rate 12 11 L 12 Blood Pressure 129/53 L 115/48 L 113/50 L Pulse Oximetry 99 98 98 Oxygen Delivery Oxygen Flow Rate Fraction of Inspired Oxygen 11/20/24 18:17 11/20/24 18:32 11/20/24 19:50 Temperature Pulse Rate 55 L 55 L Respiratory Rate 13 10 L Blood Pressure 113/49 L 121/48 L Pulse Oximetry 99 99 94 Oxygen Delivery Nasal Cannula Oxygen Flow Rate 3 Fraction of Inspired Oxygen 11/20/24 20:11 11/20/24 20:47 11/20/24 22:01 Temperature Pulse Rate 61 73 Respiratory Rate 12 19 Blood Pressure 158/72 H 127/85 Pulse Oximetry 97 100 94 Oxygen Delivery Nasal Cannula Oxygen Flow Rate 4 Fraction of Inspired Oxygen 11/20/24 22:16 11/20/24 22:57 11/20/24 23:04 Temperature Pulse Rate 66 65 62 Respiratory Rate 10 L 15 16 Blood Pressure 151/57 H Pulse Oximetry 97 Oxygen Delivery Oxygen Flow Rate Fraction of Inspired Oxygen 11/20/24 23:31 11/21/24 03:06 11/21/24 03:18 Temperature Pulse Rate 62 71 64 Respiratory Rate 11 L 16 16 Blood Pressure 125/51 L Pulse Oximetry 98 Oxygen Delivery Oxygen Flow Rate Fraction of Inspired Oxygen 11/21/24 05:04 11/21/24 07:05 11/21/24 08:23 Temperature Pulse Rate 81 99 Respiratory Rate 12 18 Blood Pressure 144/59 H 169/90 H Pulse Oximetry 96 94 99 Oxygen Delivery Nasal Cannula Oxygen Flow Rate 4 Fraction of Inspired Oxygen 36 11/21/24 08:23 11/21/24 08:31 11/21/24 09:25 Temperature Pulse Rate 101 H 95 103 H Respiratory Rate 28 H 24 H 25 H Blood Pressure 158/82 H Pulse Oximetry 95 Oxygen Delivery Oxygen Flow Rate Fraction of Inspired Oxygen 11/21/24 09:28 11/21/24 09:39 Temperature 98.6 F Pulse Rate 102 H Respiratory Rate 22 H Blood Pressure 163/56 H Pulse Oximetry 95 95 Oxygen Delivery Nasal Cannula Oxygen Flow Rate 4 Fraction of Inspired Oxygen Intake/Output Intake/Output: Intake & Output 11/18/24 11/19/24 11/20/24 11/21/24 23:59 23:59 23:59 23:59 Output Total 250 250 Balance -250 -250 Meds/Results Medications: Active Medications Generic Name Dose Route Start Last Admin Trade Name Freq PRN Reason Stop Dose Admin Acetaminophen 650 mg 11/20/24 23:51 Acetaminophen 325 Mg Tablet PO Q6H PRN Mild Pain (1-3) or Fever Albuterol/Ipratropium 3 ml 11/20/24 21:55 11/21/24 08:23 Ipratropium 0.5 Mg/Albuterol Sulfate 2.5 Mg Ampul.Neb 3 Ml INHALATION 3 ml Q6HRT GIOVANNY Administration Guaifenesin 1,200 mg 11/21/24 09:00 11/21/24 09:24 Guaifenesin 12 Hr 600 Mg Tabcr PO 1,200 mg Q12HR GIOVANNY Administration Perflutren Lipid Microsphere 0 ml 11/20/24 20:01 Perflutren Lipid Microspheres 1.5 Ml Vial Diluted To 10 Ml Total Volume IV PUSH 11/23/24 20:04 ONCE PRN adequate visualization Protocol Radiology Results: ITS Impressions Chest X-Ray 11/20/24 14:40 IMPRESSION: Chronic bibasilar interstitial disease with a moderate right-sided pleural ef fusion Chest CTA 11/20/24 19:21 IMPRESSION: No pulmonary embolus. No aneurysmal dilatation or dissection within the thoracic aorta. Small bilateral pleural effusions with adjacent compressive atelectasis. Venous Doppler Study 11/21/24 08:38 IMPRESSION: 1. No deep venous thrombosis. Labs Labs: Laboratory Results - last 24 hr 11/20/24 11/21/24 16:41 07:02 WBC 9.6 9.0 RBC 3.17 L 3.35 L Hgb 10.0 L 10.5 L Hct 31.5 L 33.7 L MCV 99.4 100.6 H MCH 31.5 31.3 MCHC 31.7 L 31.2 L RDW 14.6 H 14.4 Plt Count 275 288 MPV 10.9 H 10.6 H Immature Gran % (Auto) 0.6 H 0.8 H Neut % (Auto) 77.0 H 79.2 H Lymph % (Auto) 12.1 L 10.0 L Taney % (Auto) 8.7 H 7.9 Eos % (Auto) 1.5 2.0 Baso % (Auto) 0.1 L 0.1 L Lymph # (Auto) 1.16 0.90 Taney # (Auto) 0.8 H 0.7 H Eos # (Auto) 0.1 0.2 Baso # (Auto) 0.0 0.0 Abs Immat Gran (auto) 0.06 H 0.07 H Absolute Neuts (auto) 7.4 H 7.2 H Absolute Nucleated RBC 0.000 0.000 Nucleated RBC % 0.0 0.0 D-Dimer 1.28 H Sodium 138 138 Potassium 4.4 3.8 Chloride 106 105 Carbon Dioxide 28 29 Anion Gap 4 4 BUN 31 H 29 H Creatinine 1.50 H 1.50 H Estim Creat Clear Calc 38 38 Estimated GFR 45 L 45 L Glucose 93 107 Calcium 8.9 9.2 Magnesium 2.0 Total Bilirubin 0.9 AST 29 ALT 15 Alkaline Phosphatase 86 NT-Pro-B Natriuret Pep 646 H Total Protein 7.0 Albumin 3.6 Influenza A (RT-PCR) Negative Influenza B (RT-PCR) Negative RSV (RT-PCR) Negative SARS-CoV-2 RNA (RT-PCR) Negative Quality VTE Prophylaxis VTE prophylaxis: mechanical ordered
[2024-11-21] MEDS: ACETAMINOPHEN 325 MG TABLET 650 MG PO (12:05)
[2024-11-21] MEDS: TAMSULOSIN HCL 0.4 MG CAPSULE PO (12:45)
[2024-11-21] MEDS: FUROSEMIDE 20 MG TABLET 60 MG PO (12:45)
[2024-11-21] MEDS: SERTRALINE HCL 50 MG TABLET PO (12:46)
[2024-11-21] MEDS: LOSARTAN POTASSIUM 50 MG TABLET PO (12:46)
[2024-11-21] MEDS: MORPHINE SULFATE (*CRX) 30 MG TABCR PO (12:46)
--- NOTE | 2024-11-21 15:16 | ECG_ITS ---
Test Date: 2024-11-21 15:27:44 Measurements Intervals [place] Rate: 91 P: 52 [place]: 207 QRS: -17 QRSD: 109 T: 28 QT: 400 QTc: 493 Interpretive Statements SINUS RHYTHM WITH OCCASIONAL VENTRICULAR PREMATURE COMPLEXES POSSIBLE LEFT ATRIAL ENLARGEMENT [-0.1mV P-WAVE IN V1/V2] INCOMPLETE RIGHT BUNDLE BRANCH BLOCK [90+ ms QRS DURATION, TERMINAL R IN V1/V2, 40+ ms S IN I/aVL/V4/V5/V6] Poor R wave progression Compared to ECG 11/20/2024 17:23:58 Ventricular premature complex(es) now present Sinus bradycardia no longer present First degree AV block no longer present Electronically Signed On 11-21-2024 17:59:20 [employer]ICAL BILLING CODER by Benito Shelton M.D.
[2024-11-21 16:13] LABS: Troponin I < 0.012 ng/mL (0.000-0.034)
[2024-11-21] MEDS: LORazepam (*CRX) 0.5 MG TABLET PO (16:47)
--- NOTE | 2024-11-21 19:54 | PC.NURSE ---
On 11/21/24, the PUFF IRONER, Debbie Mendes, provided care and completed [facility] documentation on this patient. I have reviewed the PUFF IRONER's documentation and agree with the findings.
[2024-11-21] MEDS: carvediloL 12.5 MG TABLET PO (21:09)
[2024-11-21] MEDS: traZODone HCL 50 MG TABLET 100 MG PO (21:09)
[2024-11-21] MEDS: buPROPion HCL SR (12 HR) 150 MG TAB PO (21:09)
[2024-11-22] VITALS (16 sets, daily range): BP systolic 119–145; BP diastolic 51–52; PULSE 61–94; RESP 14–20; TEMP 36.6–36.9; O2SAT 91–95
[2024-11-22] MEDS: IPRATROPIUM 0.5 MG/ALBUTEROL SULFATE 2.5 MG AMPUL.NEB 3 ML INHALATION ×3 (02:03→14:30)
[2024-11-22] MEDS: ACETAMINOPHEN 325 MG TABLET 650 MG PO ×2 (05:18→11:45)
--- NOTE | 2024-11-22 06:00 | ECHO_ITS ---
Patient Info Name: Russell Morse Age: 79 years : 1945 Gender: Male Ht: 71 in Wt: 187 lbs BSA: 2.07 m2 HR: 94 bpm BP: 145 / 52 mmHg Heart Rhythm: Sinus Rhythm Technical Quality: Fair Exam Date: 11/22/2024 12:04 PM Exam Location: Echo Lab Patient Status: Outpatient Admit Date: 11/20/2024 Staff Ordering Physician: Moy Murillo MD Transportation Department Head: Nora Lyons RDCS Attending Provider: Margarita Perez PA-C Referring Physician: Lidia MONTANEZ; Exam Type: CA echo dop color flow w con Study Info Indications R06.00 - Dyspnea, unspecified Complete two-dimensional, color flow and Doppler transthoracic echocardiogram is performed with contrast to opacify the left ventricle and to improve the deliniation of the left ventricle endocardial borders. Contrast/Agitated Saline Contrast/Ag. Saline: Definity Amount: 3.00 ml Administered By: Nora Lyons RDCS Existing IV Access: Yes IV Access Condition: patent with no signs of infiltration Summary 1. Left ventricular chamber dimension is normal. 2. There is mildly increased left ventricular wall thickness. 3. Left ventricular systolic function is mildly reduced with an ejection fraction by Biplane Method of Discs of 49 %. 4. Left ventricular wall motion shows inf hypokinesis. 5. The left ventricular diastolic function is grade I diastolic dysfunction. 6. Right ventricular chamber dimension is normal. 7. Right ventricular systolic function is normal. 8. There is no aortic valve stenosis. 9. There is no mitral valve regurgitation. 10. There is no tricuspid valve regurgitation. Left Ventricle Left ventricular chamber dimension is normal. There is mildly increased left ventricular wall thickness. Left ventricular systolic function is mildly reduced with an ejection fraction by Biplane Method of Discs of 49 %. Left ventricular wall motion shows inf hypokinesis. The left ventricular diastolic function is grade I diastolic dysfunction. Right Ventricle Right ventricular chamber dimension is normal. Right ventricular systolic function is normal. Left Atria Left atrial chamber dimension is normal. Right Atria Right atrial chamber dimension is normal. Aortic Valve The aortic valve is trileaflet. There is no aortic valve sclerosis. There is no aortic valve stenosis. There is no aortic valve regurgitation. Pulmonic Valve The pulmonic valve is normal. There is no pulmonic regurgitation. Mitral Valve The mitral valve has normal leaflets. There is no mitral valve stenosis. There is no mitral valve regurgitation. Tricuspid Valve The tricuspid valve leaflets are normal. There is no significant tricuspid valve stenosis. There is no tricuspid valve regurgitation. PASP cannot be calculated. Pericardium/Pleural The pericardium appears normal. There is no pericardial effusion. Inferior Vena Cava Inferior vena cava is not well visualized. Aorta The aortic root size at the sinus of Valsalva is normal. The prox ascending aorta size is normal. Left Ventricular Outflow Tract Name Value Normal LVOT 2D LVOT Diameter 2.04 cm LVOT Doppler LVOT Peak Gradient 4 mmHg LVOT Mean Gradient 2 mmHg LVOT VTI 17.68 cm LVOT VTI/AV VTI Ratio 0.60 LVOT Stroke Volume 57.62 ml LVOT CO 3.37 l/min LVOT CI 1.63 L/min/m2 Pulmonic Valve Name Value Normal RVOT Doppler RVOT Peak Gradient 2 mmHg PV Doppler PV Peak Gradient 6 mmHg Mitral Valve Name Value Normal MV Doppler MV Decel [place] 338.23 cm/s2 MV PHT 0 s MV Area (PHT) 5.18 cm2 4.00-5.00 MV Diastolic Function MV E Peak Velocity 49.50 cm/s MV A Peak Velocity 65.97 cm/s MV E/A 0.75 MV Decel Time 0 s MV Annular TDI MV E/e' (Septal) 7.21 <=8.00 MV E/e' (Lateral) 7.75 <=8.00 MV E/e' (Average) 7.48 Aorta Name Value Normal Ascending Aorta Ao Root Diameter (MM) 3.59 cm Ao Root Diam Index (MM) 1.73 cm/m2 Aortic Valve Name Value Normal AV Doppler AV Peak Velocity 144.98 cm/s AV Peak Gradient 8 mmHg AV Mean Gradient 4 mmHg AV VTI 29.55 cm AV Area (Cont Eq VTI) 1.95 cm2 >=3.00 AV Area (Cont Eq Jt) 2.12 cm2 AV Regurgitation 2D LVOT Area 3.26 cm2 Ventricles Name Value Normal LV Dimensions 2D/MM IVS Diastolic Thickness (2D) 1.26 cm 0.60-1.00 LVID Diastole (2D) 4.00 cm 4.20-5.80 LVIW Diastolic Thickness (2D) 0.97 cm 0.60-1.00 LVID Systole (2D) 3.05 cm 2.50-4.00 LVOT Diameter 2.04 cm LV Mass (2D Cubed) 148.58 g 88.00-224.00 LV Mass Index (2D Cubed) 0.01 g/cm2 0.00-0.01 Relative Wall Thickness (2D) 0.49 LV Fractional Shortening/Ejection Fraction 2D/MM LV Fractional Shortening (2D) 24 % 25-43 LV EF (2D Teicholz) 48 % 52-72 LV Diastolic Volume (4C MOD) 112.05 ml LV EF (4C MOD) 52 % LV Diastolic Volume (2C MOD) 89.67 ml LV EF (2C MOD) 45 % LV Diastolic Volume (BP MOD) 101.42 ml 62.00-150.00 LV Diastolic Volume Index (BP MOD) 0.05 l/m2 0.03-0.07 LV Systolic Volume (BP MOD) 51.61 ml 21.00-61.00 LV Systolic Volume Index (BP MOD) 0.02 l/m2 0.01-0.03 LV EF (BP MOD) 49 % 52-72 LV Diastolic Length (4C) 9.65 cm LV Systolic Length (4C) 8.43 cm LV Stroke Volume (4C MOD) 58.61 ml Atria Name Value Normal LA Dimensions LA Dimension (MM) 4.66 cm 3.00-4.10 LA Volume (4C A-L) 66.16 ml LA Volume (BP A-L) 70.02 ml RA Dimensions RA Area (4C) 12.56 cm2 <=18.00 Report Signatures
--- NOTE | 2024-11-22 08:28 | P.PNIM_ITS ---
Progress Note: A&P Assessment and Plan (1) Chronic hypoxic respiratory failure, on home oxygen therapy: Code(s): J96.11 - Chronic respiratory failure with hypoxia; Z99.81 - Dependence on supplemental oxygen Status: Acute Assessment and Plan: Chronic, back on baseline 3L NC. (2) Pleural effusion: Code(s): J90 - Pleural effusion, not elsewhere classified Status: Inactive Assessment and Plan: - CXR: Chronic bibasilar interstitial disease with a moderate right-sided pleural effusion - Chest CTA No pulmonary embolus. No aneurysmal dilatation or dissection within the thoracic aorta. Small bilateral pleural effusions with adjacent compressive atelectasis. - Venous doppler: No DVT - Echo obtained, waiting on read - Repeat CXR ordered - Complicating Factors: COPD with chronic oxygen supplementation (3L NC) - Viral PCR: negative for Flu/COVID/RSV - Right-sided pleural effusion was noted to be moderate in size on chest x-ray though does not appear significant enough to drain. - Does not appear volume overloaded thus will stop IV diuretics and resume his home lasix 60 daily as prescribed - Continue scheduled bronchodilators. Encourage incentive spirometry. - Cornet and Mucinex ordered to help mobilize secretions as he does have quite a bit of rhonchi in the right upper lobe. - Monitor vital signs, I&Os, neuro status and patient is a fall risk - Follow WBC, serum electrolytes, temperature curves and cultures (3) Chronic obstructive pulmonary disease: Code(s): J44.9 - Chronic obstructive pulmonary disease, unspecified Status: Acute Assessment and Plan: Chronic, does not appear to be in acute exacerbation given no wheezing heard on exam. - monitor (4) Congestive heart failure: Code(s): I50.9 - Heart failure, unspecified Status: Acute Assessment and Plan: chronic, continue home medications - echo obtained, pending read (5) Chronic kidney disease, stage 3: Code(s): N18.30 - Chronic kidney disease, stage 3 unspecified Status: Acute Assessment and Plan: BUN/Cr 31/1.5 on admission, appears around baseline. - BUN/Cr 23/1.2 on am labs - Renally dose medications - Avoid nephrotoxic medications - Monitor I/O (6) Essential hypertension: Code(s): I10 - Essential (primary) hypertension Status: Acute Assessment and Plan: Chronic, continue home medications - carvedilol 12.5 mg BID - lasix 60 mg daily - losartan 50 mg daily - blood pressure has been stable, continue to monitor Time Spent With Patient Time with patient: 25 - 35 minutes Subjective Date/time seen: 11/22/24 08:28 Interval history: 79-year-old male with combined systolic and diastolic congestive heart failure, ischemic cardiomyopathy, chronic hypoxic respiratory failure on 3 L home oxygen, chronic obstructive pulmonary disease, hypertension, and other comorbidities who presented to the emergency department for evaluation of shortness of breath. Patient is pleasant lying in bed with family at bedside. He continues to endorse shortness of breath with noted congestion and a nonproductive cough as well. He also notes that he has not had a bowel movement in some time and feels constipated. He has no other complaints denying chest pain, palpitations, nausea/vomiting and abdominal pain. Encouraged patient to use Cornet and IS. Review of Systems Review of Systems: All systems reviewed & are unremarkable except as noted in HPI and below Exam Narrative: AF HR 74 RR 20 SpO2 95 (3L NC baseline) BP 123/51 General: male in no acute respiratory distress who is nontoxic appearing, lying semi recumbent in bed. HEENT: Normocephalic. Atraumatic. Extraocular movement intact. Sclera clear and anicteric.No facial asymmetry. Chest: Lungs are clear in the uppers with rhonchi/crackles to auscultation bilaterally worse on the left than the right. No wheezes. CV: Heart was regular rate and rhythm. S1/S2. No murmurs, gallops, or rubs. Abd: Abdomen was soft. Nontender. Nondistended. Positive bowel sounds. No organo megaly or masses. Neuro: Patient is alert and oriented x4. Speech is clear. Objective Data Vital Signs Vital Signs: Vital Signs - 24 hr 11/21/24 08:31 11/21/24 09:25 11/21/24 09:28 Temperature Pulse Rate 95 103 H Respiratory Rate 24 H 25 H Blood Pressure 158/82 H Pulse Oximetry 95 95 Oxygen Delivery Nasal Cannula Oxygen Flow Rate 4 Fraction of Inspired Oxygen 11/21/24 09:39 11/21/24 09:55 11/21/24 12:00 Temperature 98.6 F Pulse Rate 102 H 105 H Respiratory Rate 22 H Blood Pressure 163/56 H Pulse Oximetry 95 95 Oxygen Delivery Nasal Cannula Oxygen Flow Rate 3.5 Fraction of Inspired Oxygen 11/21/24 14:00 11/21/24 14:25 11/21/24 14:35 Temperature 98.1 F Pulse Rate 90 90 92 Respiratory Rate 20 20 20 Blood Pressure 133/53 L Pulse Oximetry 96 Oxygen Delivery Oxygen Flow Rate Fraction of Inspired Oxygen 11/21/24 16:00 11/21/24 20:00 11/21/24 20:00 Temperature Pulse Rate 113 H 83 87 Respiratory Rate 18 Blood Pressure Pulse Oximetry 93 Oxygen Delivery Nasal Cannula Oxygen Flow Rate 3 Fraction of Inspired Oxygen 36 11/21/24 20:28 11/21/24 20:34 11/21/24 20:42 Temperature Pulse Rate 78 80 Respiratory Rate 20 20 Blood Pressure Pulse Oximetry 93 Oxygen Delivery Nasal Cannula Oxygen Flow Rate 3 Fraction of Inspired Oxygen 11/21/24 21:09 11/21/24 21:56 11/22/24 00:00 Temperature 98.3 F Pulse Rate 80 83 78 Respiratory Rate 18 Blood Pressure 118/52 L Pulse Oximetry 93 Oxygen Delivery Oxygen Flow Rate Fraction of Inspired Oxygen 11/22/24 02:04 11/22/24 02:14 11/22/24 04:00 Temperature Pulse Rate 76 78 69 Respiratory Rate 20 20 Blood Pressure Pulse Oximetry Oxygen Delivery Oxygen Flow Rate Fraction of Inspired Oxygen 11/22/24 04:19 11/22/24 07:44 11/22/24 07:44 Temperature 98.4 F Pulse Rate 88 90 Respiratory Rate 20 20 Blood Pressure 145/52 H Pulse Oximetry 91 93 Oxygen Delivery Nasal Cannula Oxygen Flow Rate 3 Fraction of Inspired Oxygen 11/22/24 08:16 Temperature Pulse Rate 94 Respiratory Rate 20 Blood Pressure Pulse Oximetry Oxygen Delivery Oxygen Flow Rate Fraction of Inspired Oxygen Intake/Output Intake/Output: Intake & Output 11/19/24 11/20/24 11/21/24 11/22/24 23:59 23:59 23:59 23:59 Intake Total 0 550 Output Total 250 850 350 Balance -250 -850 200 Meds/Results Medications: Active Medications Generic Name Dose Route Start Last Admin Trade Name Freq PRN Reason Stop Dose Admin Acetaminophen 650 mg 11/20/24 23:51 11/22/24 05:18 Acetaminophen 325 Mg Tablet PO 650 mg Q6H PRN Administration Mild Pain (1-3) or Fever Albuterol/Ipratropium 3 ml 11/20/24 21:55 11/22/24 07:42 Ipratropium 0.5 Mg/Albuterol Sulfate 2.5 Mg Ampul.Neb 3 Ml INHALATION 3 ml Q6HRT GIOVANNY Administration Aspirin 81 mg 11/21/24 12:23 Aspirin 81 Mg Enteric Tablet PO DAILY GIOVANNY Atorvastatin Calcium 80 mg 11/21/24 12:23 Atorvastatin 40 Mg Tablet PO DAILY GIOVANNY Bupropion HCl 150 mg 11/21/24 21:00 11/21/24 21:09 Bupropion Hcl Sr (12 Hr) 150 Mg Tab PO 150 mg Q12HR GIOVANNY Administration Carvedilol 12.5 mg 11/21/24 21:00 11/21/24 21:09 Carvedilol 12.5 Mg Tablet PO 12.5 mg Q12HR GIOVANNY Administration Fenofibrate 160 mg 11/21/24 12:23 Fenofibrate 160 Mg Tablet PO DAILY GIOVANNY Finasteride 5 mg 11/21/24 12:23 Finasteride 5 Mg Tablet PO DAILY [facility] Furosemide 60 mg 11/21/24 12:25 11/21/24 12:45 Furosemide 20 Mg Tablet PO 60 mg DAILY GIOVANNY Administration Guaifenesin 1,200 mg 11/21/24 09:00 11/21/24 21:09 Guaifenesin 12 Hr 600 Mg Tabcr PO 1,200 mg Q12HR GIOVANNY Administration Lorazepam 0.5 mg 11/21/24 16:39 11/21/24 16:47 Lorazepam (*Crx) 0.5 Mg Tablet PO 0.5 mg BID PRN Administration anxiety Losartan Potassium 50 mg 11/21/24 12:25 11/21/24 12:46 Losartan Potassium 50 Mg Tablet PO 50 mg DAILY GIOVANNY Administration Morphine Sulfate 30 mg 11/21/24 12:25 11/21/24 12:46 Morphine Sulfate (*Crx) 30 Mg Tabcr PO 30 mg QAM GIOVANNY Administration Perflutren Lipid Microsphere 0 ml 11/20/24 20:01 Perflutren Lipid Microspheres 1.5 Ml Vial Diluted To 10 Ml Total Volume IV PUSH 11/23/24 20:04 ONCE PRN adequate visualization Protocol Sertraline HCl 50 mg 11/21/24 12:25 11/21/24 12:46 Sertraline Hcl 50 Mg Tablet PO 50 mg DAILY GIOVANNY Administration Tamsulosin HCl 0.4 mg 11/21/24 12:25 11/21/24 12:45 Tamsulosin Hcl 0.4 Mg Capsule PO 0.4 mg DAILY GIOVANNY Administration Trazodone HCl 100 mg 11/21/24 21:00 11/21/24 21:09 Trazodone Hcl 50 Mg Tablet PO 100 mg HS GIOVANNY Administration Radiology Results: ITS Impressions Chest X-Ray 11/20/24 14:40 IMPRESSION: Chronic bibasilar interstitial disease with a moderate right-sided pleural effusion Chest CTA 11/20/24 19:21 IMPRESSION: No pulmonary embolus. No aneurysmal dilatation or dissection within the thoracic aorta. Small bilateral pleural effusions with adjacent compressive atelectasis. Venous Doppler Study 11/21/24 08:38 IMPRESSION: 1. No deep venous thrombosis. Labs Labs: Laboratory Results - last 24 hr 11/21/24 15:45 Troponin I < 0.012 Quality VTE Prophylaxis VTE prophylaxis: mechanical ordered
[2024-11-22] MEDS: LOSARTAN POTASSIUM 50 MG TABLET PO (08:47)
[2024-11-22] MEDS: FUROSEMIDE 20 MG TABLET 60 MG PO (08:47)
[2024-11-22] MEDS: MORPHINE SULFATE (*CRX) 30 MG TABCR PO (08:47)
[2024-11-22] MEDS: guaiFENesin 12 HR 600 MG TABCR 1200 MG PO ×2 (08:47→20:36)
[2024-11-22] MEDS: ASPIRIN 81 MG ENTERIC TABLET PO (08:48)
[2024-11-22] MEDS: ATORVASTATIN 40 MG TABLET 80 MG PO (08:48)
[2024-11-22] MEDS: SERTRALINE HCL 50 MG TABLET PO (08:48)
[2024-11-22] MEDS: FINASTERIDE 5 MG TABLET PO (08:48)
[2024-11-22] MEDS: buPROPion HCL SR (12 HR) 150 MG TAB PO ×2 (08:48→20:37)
[2024-11-22] MEDS: TAMSULOSIN HCL 0.4 MG CAPSULE PO (08:48)
[2024-11-22] MEDS: carvediloL 12.5 MG TABLET PO ×2 (08:48→20:37)
[2024-11-22] MEDS: FENOFIBRATE 160 MG TABLET PO (08:49)
[2024-11-22 09:04] LABS: Basophils Percent Auto 0.1 % (0.2-1.2); Eosinophils Percent Auto 0.2 % (0-4.4); Hemoglobin 9.3 g/dL (14.0-18.0); Immature Granulocyte Absolute 0.04 K/mm3 (0.00-0.031); Immature Granulocyte Percent A 0.5 % (0-0.5); Lymphocytes Absolute Auto 0.89 K/mm3 (0.9-3.2); Lymphocytes Percent Auto 10.5 % (18.3-44.2); Mean Corpuscular HGB Conc 32.1 g/dl (32-36); Mean Corpuscular Hemoglobin 31.4 pg (26-34); Mean Platelet Volume 10.8 fl (7.4-10.4); Monocytes Absolute Auto 0.9 K/mm3 (0.1-0.6); Monocytes Percent Auto 10.2 % (2.6-8.5); Neutrophils Absolute Auto 6.7 K/mm3 (1.3-6.7); Neutrophils Percent Auto 78.5 % (45.5-73.1); Platelet Count Result 246 k/mm3 (150-375); Red Blood Count 2.96 M/mm3 (4.6-6.20); Red Cell Distribution Width 14.4 % (11.5-14.5); White Blood Count 8.5 K/mm3 (4.5-10.0)
[2024-11-22 09:16] LABS: Alanine Aminotransferase 14 U/L (6-50); Albumin Level 3.3 g/dL (3.5-5.1); Alkaline Phosphatase 72 U/L (38-126); Anion Gap 1 mmol/L (4-12); Aspartate Amino Transferase 26 U/L (17-59); Bilirubin,Total 0.9 mg/dL (0.2-1.3); Blood Urea Nitrogen 23 mg/dL (9-20); Carbon Dioxide 29 mmol/L (22-30); Chloride 106 mmol/L (98-107); Estimated CRCL calculation 47 ml/min; Estimated Glomerular Filt Rate 58; Glucose 115 mg/dL (65-110); Potassium 3.6 mmol/L (3.4-5.0); Sodium 136 mmol/L (137-145)
[2024-11-22] MEDS: PERFLUTREN LIPID MICROSPHERES 1.5 ML VIAL DILUTED TO 10 ML TOTAL VOLUME IV PUSH (12:00)
--- NOTE | 2024-11-22 13:13 | IVDEFINITY ---
Prior to administration of IV Definity the patient was educated on the risks and benefits of the imaging enhancing agent including potential adverse side effects. The patient verbalized understanding. Allergies were verified. No exclusion criteria were identified and at least one of the following inclusion criteria were met: 1) physician request, 2) patient technically difficult to image (per the [place] [employer] guidelines of two or more segments not discernable within the apical view), or 3) questionable left ventricular function. ?
[2024-11-22] MEDS: LORazepam (*CRX) 0.5 MG TABLET PO (13:25)
[2024-11-22] MEDS: SENNA/DOCUSATE SODIUM TABLET 1 TAB PO (20:36)
[2024-11-22] MEDS: traZODone HCL 50 MG TABLET 100 MG PO (20:37)
[2024-11-23] VITALS (18 sets, daily range): BP systolic 112–129; BP diastolic 44–55; PULSE 66–84; RESP 16–20; TEMP 36.1–36.7; O2SAT 91–98
[2024-11-23] MEDS: LORazepam (*CRX) 0.5 MG TABLET PO ×2 (00:30→15:54)
[2024-11-23] MEDS: IPRATROPIUM 0.5 MG/ALBUTEROL SULFATE 2.5 MG AMPUL.NEB 3 ML INHALATION ×4 (02:22→21:00)
[2024-11-23 06:57] LABS: Basophils Percent Auto 0.2 % (0.2-1.2); Eosinophils Absolute Auto 0.1 K/mm3 (0-0.3); Eosinophils Percent Auto 1.4 % (0-4.4); Hematocrit 28.3 % (42.0-52.0); Hemoglobin 9.1 g/dL (14.0-18.0); Immature Granulocyte Absolute 0.05 K/mm3 (0.00-0.031); Immature Granulocyte Percent A 0.8 % (0-0.5); Lymphocytes Percent Auto 13.5 % (18.3-44.2); Mean Corpuscular HGB Conc 32.2 g/dl (32-36); Mean Corpuscular Hemoglobin 31.2 pg (26-34); Mean Corpuscular Volume 96.9 fl (80-100); Mean Platelet Volume 10.8 fl (7.4-10.4); Monocytes Absolute Auto 0.8 K/mm3 (0.1-0.6); Monocytes Percent Auto 11.6 % (2.6-8.5); Neutrophils Absolute Auto 4.8 K/mm3 (1.3-6.7); Neutrophils Percent Auto 72.5 % (45.5-73.1); Platelet Count Result 255 k/mm3 (150-375); Red Blood Count 2.92 M/mm3 (4.6-6.20); Red Cell Distribution Width 14.1 % (11.5-14.5); White Blood Count 6.7 K/mm3 (4.5-10.0)
[2024-11-23 07:06] LABS: Alanine Aminotransferase 16 U/L (6-50); Albumin Level 3.2 g/dL (3.5-5.1); Alkaline Phosphatase 72 U/L (38-126); Anion Gap 2 mmol/L (4-12); Aspartate Amino Transferase 29 U/L (17-59); Bilirubin,Total 0.7 mg/dL (0.2-1.3); Blood Urea Nitrogen 21 mg/dL (9-20); Carbon Dioxide 30 mmol/L (22-30); Chloride 104 mmol/L (98-107); Estimated CRCL calculation 47 ml/min; Estimated Glomerular Filt Rate 58; Glucose 98 mg/dL (65-110); Potassium 3.5 mmol/L (3.4-5.0); Sodium 136 mmol/L (137-145)
[2024-11-23] MEDS: MORPHINE SULFATE (*CRX) 30 MG TABCR PO (09:07)
[2024-11-23] MEDS: ATORVASTATIN 40 MG TABLET 80 MG PO (09:07)
[2024-11-23] MEDS: TAMSULOSIN HCL 0.4 MG CAPSULE PO (09:08)
[2024-11-23] MEDS: SERTRALINE HCL 50 MG TABLET PO (09:08)
[2024-11-23] MEDS: FUROSEMIDE 20 MG TABLET 60 MG PO (09:08)
[2024-11-23] MEDS: buPROPion HCL SR (12 HR) 150 MG TAB PO ×2 (09:08→20:59)
[2024-11-23] MEDS: FENOFIBRATE 160 MG TABLET PO (09:08)
[2024-11-23] MEDS: guaiFENesin 12 HR 600 MG TABCR 1200 MG PO ×2 (09:08→20:59)
[2024-11-23] MEDS: LOSARTAN POTASSIUM 50 MG TABLET PO (09:08)
[2024-11-23] MEDS: carvediloL 12.5 MG TABLET PO ×2 (09:08→20:59)
[2024-11-23] MEDS: FINASTERIDE 5 MG TABLET PO (09:09)
[2024-11-23] MEDS: ASPIRIN 81 MG ENTERIC TABLET PO (09:09)
[2024-11-23] MEDS: AZITHROMYCIN 500 MG/NS 250 ML 500 MG/250 ML BAG 250 MG IVPB (09:40)
--- NOTE | 2024-11-23 10:10 | P.PNIM_ITS ---
Progress Note: A&P Assessment and Plan (1) Chronic hypoxic respiratory failure, on home oxygen therapy: Code(s): J96.11 - Chronic respiratory failure with hypoxia; Z99.81 - Dependence on supplemental oxygen Status: Acute Assessment and Plan: -Chronic, back on baseline 3L NC. (2) Pleural effusion: Code(s): J90 - Pleural effusion, not elsewhere classified Status: Inactive Assessment and Plan: - CXR: Chronic bibasilar interstitial disease with a moderate right-sided pleural effusion - Chest CTA No pulmonary embolus. No aneurysmal dilatation or dissection within the thoracic aorta. Small bilateral pleural effusions with adjacent compressive atelectasis. - Venous doppler: No DVT - Echo obtained: Summary 1. Left ventricular chamber dimension is normal. 2. There is mildly increased left ventricular wall thickness. 3. Left ventricular systolic function is mildly reduced with an ejection fraction by Biplane Method of Discs of 49 %. 4. Left ventricular wall motion shows inf hypokinesis. 5. The left ventricular diastolic function is grade I diastolic dysfunction. 6. Right ventricular chamber dimension is normal. 7. Right ventricular systolic function is normal. 8. There is no aortic valve stenosis. 9. There is no mitral valve regurgitation. 10. There is no tricuspid valve regurgitation. - Repeat CXR showed: Impression: 1: Progression of coarse interstitial infiltrates, compatible with combination of chronic fibrosis and pneumonia. 2: Small right pleural effusion. - Complicating Factors: COPD with chronic oxygen supplementation (3L NC) - Viral PCR: negative for Flu/COVID/RSV - Right-sided pleural effusion was noted to be moderate in size on chest x-ray though does not appear significant enough to drain. - Does not appear volume overloaded thus will stop IV diuretics and resume his home lasix 60 daily as prescribed - Continue scheduled bronchodilators. Encourage incentive spirometry. - Cornet and Mucinex ordered to help mobilize secretions as he does have quite a bit of rhonchi in the right upper lobe. - Monitor vital signs, I&Os, neuro status and patient is a fall risk - Follow WBC, serum electrolytes, temperature curves and cultures (3) Chronic obstructive pulmonary disease: Code(s): J44.9 - Chronic obstructive pulmonary disease, unspecified Status: Acute Assessment and Plan: Chronic, does not appear to be in acute exacerbation given no wheezing heard on exam. - monitor (4) Pneumonia: Code(s): J18.9 - Pneumonia, unspecified organism Status: Acute Assessment and Plan: - Chest X-ray: Impression: 1: Progression of coarse interstitial infiltrates, compatible with combination of chronic fibrosis and pneumonia. 2: Small right pleural effusion. - Started on Azithromycin 500 mg PO daily and Ceftriaxone 1 gram IVPB daily. (5) Congestive heart failure: Code(s): I50.9 - Heart failure, unspecified Status: Acute Assessment and Plan: chronic, continue home medications - echo obtained, pending read (6) Chronic kidney disease, stage 3: Code(s): N18.30 - Chronic kidney disease, stage 3 unspecified Status: Acute Assessment and Plan: BUN/Cr 31/1.5 on admission, appears around baseline. - BUN/Cr 21/1.2 on am labs - Renally dose medications - Avoid nephrotoxic medications - Monitor I/O (7) Essential hypertension: Code(s): I10 - Essential (primary) hypertension Status: Acute Assessment and Plan: Chronic, continue home medications - carvedilol 12.5 mg BID - lasix 60 mg daily - losartan 50 mg daily - blood pressure has been stable, continue to monitor (8) Spinal stenosis, lumbar region without neurogenic claudication: Code(s): M48.061 - Spinal stenosis, lumbar region without neurogenic claudication Status: Acute Assessment and Plan: * Morphine 30 mg PO daily and Acetaminophen 650 mg PO q 6 PRN. Subjective Date/time seen: 11/23/24 10:10 Interval history: Patient sitting up in bed. Patient reports pain in lower back is a 4 , constant, and aching. Patient reports shortness of breath with activity and sometimes at rest. Patient oxygen was on 2 liters and patient is on 3 liters nasal cannula, flow increased to 3 liters nasal cannula. Patient denies chest pain, palpitations, headache, or dizziness. Review of Systems Review of Systems: All systems reviewed & are unremarkable except as noted in HPI and below Exam Const: General: no acute distress and uncomfortable Eyes: Sclera: sclerae normal Resp: Effort & Inspection: normal respiratory effort Auscultation: wheezes expiratory wheezes Other: slightly coarse Cardio: Rate: regular rate Rhythm: regular rhythm Other: Telemetry SR 84 GI: GI Palp: Yes Soft to palpation Auscultation: normal bowel sounds Neuro: Speech: normal speech Extrem: General: no pedal edema Psych: Mental Status: mental status grossly normal Affect: normal affect Objective Data Vital Signs Vital Signs: Vital Signs - 24 hr 11/22/24 12:00 11/22/24 14:00 11/22/24 14:30 Temperature 97.9 F Pulse Rate 65 61 69 Respiratory Rate 18 20 Blood Pressure 123/51 L Pulse Oximetry 95 Oxygen Delivery Oxygen Flow Rate 11/22/24 14:42 11/22/24 15:27 11/22/24 16:00 Temperature Pulse Rate 74 65 Respiratory Rate 20 Blood Pressure Pulse Oximetry Oxygen Delivery Nasal Cannula Oxygen Flow Rate 3 11/22/24 20:00 11/22/24 20:00 11/22/24 20:37 Temperature Pulse Rate 78 76 Respiratory Rate Blood Pressure Pulse Oximetry 95 Oxygen Delivery Nasal Cannula Oxygen Flow Rate 3 11/22/24 22:00 11/23/24 00:00 11/23/24 02:22 Temperature 98.1 F Pulse Rate 72 72 Respiratory Rate 14 Blood Pressure 119/52 L Pulse Oximetry 95 95 Oxygen Delivery Nasal Cannula Oxygen Flow Rate 3 11/23/24 02:22 11/23/24 02:28 11/23/24 04:00 Temperature Pulse Rate 77 73 75 Respiratory Rate 18 18 Blood Pressure Pulse Oximetry Oxygen Delivery Oxygen Flow Rate 11/23/24 05:03 11/23/24 08:03 11/23/24 08:03 Temperature 98.1 F Pulse Rate 78 84 84 Respiratory Rate 20 18 18 Blood Pressure 129/55 L Pulse Oximetry 92 94 Oxygen Delivery Nasal Cannula Oxygen Flow Rate 2 11/23/24 08:13 Temperature Pulse Rate 82 Respiratory Rate 18 Blood Pressure Pulse Oximetry Oxygen Delivery Oxygen Flow Rate Intake/Output Intake/Output: Intake & Output 11/20/24 11/21/24 11/22/24 11/23/24 23:59 23:59 23:59 23:59 Intake Total 0 1150 550 Output Total 727 761 0148 700 Balance -250 -850 -250 -150 Meds/Results Medications: Active Medications Generic Name Dose Route Start Last Admin Trade Name Freq PRN Reason Stop Dose Admin Acetaminophen 650 mg 11/20/24 23:51 11/22/24 11:45 Acetaminophen 325 Mg Tablet PO 650 mg Q6H PRN Administration Mild Pain (1-3) or Fever Albuterol/Ipratropium 3 ml 11/20/24 21:55 11/23/24 08:03 Ipratropium 0.5 Mg/Albuterol Sulfate 2.5 Mg Ampul.Neb 3 Ml INHALATION 3 ml Q6HRT GIOVANNY Administration Aspirin 81 mg 11/21/24 12:23 11/23/24 09:09 Aspirin 81 Mg Enteric Tablet PO 81 mg DAILY GIOVANNY Administration Atorvastatin Calcium 80 mg 11/21/24 12:23 11/23/24 09:07 Atorvastatin 40 Mg Tablet PO 80 mg DAILY GIOVANNY Administration Bupropion HCl 150 mg 11/21/24 21:00 11/23/24 09:08 Bupropion Hcl Sr (12 Hr) 150 Mg Tab PO 150 mg Q12HR GIOVANNY Administration Carvedilol 12.5 mg 11/21/24 21:00 11/23/24 09:08 Carvedilol 12.5 Mg Tablet PO 12.5 mg Q12HR GIOVANNY Administration Fenofibrate 160 mg 11/21/24 12:23 11/23/24 09:08 Fenofibrate 160 Mg Tablet PO 160 mg DAILY GIOVANNY Administration Finasteride 5 mg 11/21/24 12:23 11/23/24 09:09 Finasteride 5 Mg Tablet PO 5 mg DAILY GIOVANNY Administration Furosemide 60 mg 11/21/24 12:25 11/23/24 09:08 Furosemide 20 Mg Tablet PO 60 mg DAILY GIOVANNY Administration Guaifenesin 1,200 mg 11/21/24 09:00 11/23/24 09:08 Guaifenesin 12 Hr 600 Mg Tabcr PO 1,200 mg Q12HR GIOVANNY Administration Azithromycin 500 mg in 250 mls @ 250 mls/hr 11/23/24 09:00 Zithromax IVPB Q24H GIOVANNY Ceftriaxone Sodium 1 gm in 50 mls @ 100 mls/hr 11/23/24 09:00 11/23/24 09:07 Rocephin 1 Gm/Ns 50 Ml IVPB 100 mls/hr Q24H GIOVANNY Administration Lorazepam 0.5 mg 11/21/24 16:39 11/23/24 00:30 Lorazepam (*Crx) 0.5 Mg Tablet PO 0.5 mg BID PRN Administration anxiety Losartan Potassium 50 mg 11/21/24 12:25 11/23/24 09:08 Losartan Potassium 50 Mg Tablet PO 50 mg DAILY GIOVANNY Administration Morphine Sulfate 30 mg 11/21/24 12:11/23/24 09:07 Morphine Sulfate (*Crx) 30 Mg Tabcr PO 30 mg QAM GIOVANNY Administration Senna/Docusate Sodium 1 tab 11/22/24 21:00 11/22/24 20:36 Senna/Docusate Sodium Tablet PO 1 tab HS GIOVANNY Administration Sertraline HCl 50 mg 11/21/24 12:25 11/23/24 09:08 Sertraline Hcl 50 Mg Tablet PO 50 mg DAILY GIOVANNY Administration Tamsulosin HCl 0.4 mg 11/21/24 12:25 11/23/24 09:08 Tamsulosin Hcl 0.4 Mg Capsule PO 0.4 mg DAILY GIOVANNY Administration Trazodone HCl 100 mg 11/21/24 21:00 11/22/24 20:37 Trazodone Hcl 50 Mg Tablet PO 100 mg HS GIOVANNY Administration Radiology Results: ITS Impressions Chest CTA 11/20/24 19:21 IMPRESSION: No pulmonary embolus. No aneurysmal dilatation or dissection within the thoracic aorta. Small bilateral pleural effusions with adjacent compressive atelectasis. Venous Doppler Study 11/21/24 08:38 IMPRESSION: 1. No deep venous thrombosis. 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 2: Small right pleural effusion. Labs Labs: Laboratory Results - last 24 hr 11/23/24 06:33 WBC 6.7 RBC 2.92 L Hgb 9.1 L Hct 28.3 L MCV 96.9 MCH 31.2 MCHC 32.2 RDW 14.1 Plt Count 255 MPV 10.8 H Immature Gran % (Auto) 0.8 H Neut % (Auto) 72.5 Lymph % (Auto) 13.5 L [place] % (Auto) 11.6 H Eos % (Auto) 1.4 Baso % (Auto) 0.2 Lymph # (Auto) 0.90 [place] # (Auto) 0.8 H Eos # (Auto) 0.1 Baso # (Auto) 0.0 Abs Immat Gran (auto) 0.05 H Absolute Neuts (auto) 4.8 Absolute Nucleated RBC 0.000 Nucleated RBC % 0.0 Sodium 136 L Potassium 3.5 Chloride 104 Carbon Dioxide 30 Anion Gap 2 L BUN 21 H Creatinine 1.20 Estim Creat Clear Calc 47 Estimated GFR 58 L Glucose 98 Calcium 9.0 Total Bilirubin 0.7 AST 29 ALT 16 Alkaline Phosphatase 72 Total Protein 6.0 L Albumin 3.2 L Quality VTE Prophylaxis VTE prophylaxis: mechanical ordered
[2024-11-23] MEDS: polyethylene glycoL 3350 17 GM POWD.PACK PO (10:34)
[2024-11-23] MEDS: ACETAMINOPHEN 325 MG TABLET 650 MG PO (18:23)
[2024-11-23] MEDS: SENNA/DOCUSATE SODIUM TABLET 1 TAB PO (20:59)
[2024-11-23] MEDS: traZODone HCL 50 MG TABLET 100 MG PO (20:59)
[2024-11-24] VITALS (20 sets, daily range): BP systolic 110–139; BP diastolic 42–59; PULSE 56–77; RESP 16–22; TEMP 36.3–36.7; O2SAT 93–100
--- NOTE | 2024-11-24 00:19 | PC.NURSE ---
I called and spoke with Lukas Marina NP about this Pt. who had a 27 beat run of V-tach. Pt. was sleeping in bed at this time, no symptoms. Labs & medications reviewed with Frankie & he was looking at chart. New orders received to give Potassium 40 mEq PO ONE TIME ONLY and he will come look at tele strips.
[2024-11-24] MEDS: POTASSIUM CHLORIDE 20 MEQ ER TABLET 40 MEQ PO (00:41)
[2024-11-24 01:12] LABS: Magnesium 1.8 mg/dL (1.6-2.3)
[2024-11-24] MEDS: MAGNESIUM SULF 2 GM/WATER 50ML 2 GM/50 ML BAG IVPB (02:36)
[2024-11-24] MEDS: IPRATROPIUM 0.5 MG/ALBUTEROL SULFATE 2.5 MG AMPUL.NEB 3 ML INHALATION ×4 (02:48→21:16)
--- NOTE | 2024-11-24 04:30 | P.PNCROSS_ITS ---
Event Note Event Note Event Note: I was notified around midnight that patient had 27 beat run of ventricular tach ycardia on telemetry monitoring while he was asleep. RN reports that she went to bedside and patient was asymptomatic after awakening and being back in sinus rhythm. No history of prior ventricular dysrhythmia is known but patient does have a history of CAD hypertension cardiomyopathy congestive heart failure. Below is the summary of patient's echocardiogram obtained during this hospitalization. Patient remained asymptomatic but did have a secondary short run of wide complex tachycardia on telemetry monitoring. Earlier in the day patient had a potassium of 3.5 which was not supplemented. He is receiving furosemide daily. We replaced 40 mEq oral potassium and added magnesium to prior labs. Magnesium resulted at 1.8 so I ordered 2 g IV magnesium replacement. We will reassess labs again in the morning and treat to a potassium of 4 and magnesium of 2. Cardiology will be consulted in the morning. Summary 1. Left ventricular chamber dimension is normal. 2. There is mildly increased left ventricular wall thickness. 3. Left ventricular systolic function is mildly reduced with an ejection fraction by Biplane Method of Discs of 49 %. 4. Left ventricular wall motion shows inf hypokinesis. 5. The left ventricular diastolic function is grade I diastolic dysfunction. 6. Right ventricular chamber dimension is normal. 7. Right ventricular systolic function is normal. 8. There is no aortic valve stenosis. 9. There is no mitral valve regurgitation. 10. There is no tricuspid valve regurgitation.
[2024-11-24 05:53] LABS: Basophils Percent Auto 0.3 % (0.2-1.2); Eosinophils Absolute Auto 0.2 K/mm3 (0-0.3); Eosinophils Percent Auto 2.8 % (0-4.4); Hematocrit 28.1 % (42.0-52.0); Hemoglobin 8.7 g/dL (14.0-18.0); Immature Granulocyte Absolute 0.06 K/mm3 (0.00-0.031); Lymphocytes Absolute Auto 1.24 K/mm3 (0.9-3.2); Lymphocytes Percent Auto 20.7 % (18.3-44.2); Mean Corpuscular Hemoglobin 30.6 pg (26-34); Mean Corpuscular Volume 98.9 fl (80-100); Mean Platelet Volume 10.5 fl (7.4-10.4); Monocytes Absolute Auto 0.8 K/mm3 (0.1-0.6); Monocytes Percent Auto 12.5 % (2.6-8.5); Neutrophils Absolute Auto 3.7 K/mm3 (1.3-6.7); Neutrophils Percent Auto 62.7 % (45.5-73.1); Platelet Count Result 258 k/mm3 (150-375); Red Blood Count 2.84 M/mm3 (4.6-6.20)
[2024-11-24 05:58] LABS: Alanine Aminotransferase 19 U/L (6-50); Alkaline Phosphatase 67 U/L (38-126); Anion Gap 1 mmol/L (4-12); Aspartate Amino Transferase 33 U/L (17-59); Bilirubin,Total 0.5 mg/dL (0.2-1.3); Blood Urea Nitrogen 22 mg/dL (9-20); Calcium 8.9 mg/dL (8.4-10.2); Carbon Dioxide 32 mmol/L (22-30); Chloride 104 mmol/L (98-107); Estimated CRCL calculation 43 ml/min; Estimated Glomerular Filt Rate 53; Glucose 105 mg/dL (65-110); Magnesium 2.4 mg/dL (1.6-2.3); Potassium 4.2 mmol/L (3.4-5.0); Sodium 137 mmol/L (137-145)
[2024-11-24 06:13] LABS: Troponin I < 0.012 ng/mL (0.000-0.034)
[2024-11-24] MEDS: guaiFENesin 12 HR 600 MG TABCR 1200 MG PO ×2 (09:04→21:02)
[2024-11-24] MEDS: SERTRALINE HCL 50 MG TABLET PO (09:05)
[2024-11-24] MEDS: FUROSEMIDE 20 MG TABLET 60 MG PO (09:05)
[2024-11-24] MEDS: MORPHINE SULFATE (*CRX) 30 MG TABCR PO (09:05)
[2024-11-24] MEDS: FINASTERIDE 5 MG TABLET PO (09:05)
[2024-11-24] MEDS: ATORVASTATIN 40 MG TABLET 80 MG PO (09:05)
[2024-11-24] MEDS: AZITHROMYCIN 250 MG TABLET 500 MG PO (09:05)
[2024-11-24] MEDS: TAMSULOSIN HCL 0.4 MG CAPSULE PO (09:05)
[2024-11-24] MEDS: FENOFIBRATE 160 MG TABLET PO (09:06)
[2024-11-24] MEDS: polyethylene glycoL 3350 17 GM POWD.PACK PO (09:06)
[2024-11-24] MEDS: carvediloL 12.5 MG TABLET PO (09:06)
[2024-11-24] MEDS: LOSARTAN POTASSIUM 50 MG TABLET PO (09:06)
[2024-11-24] MEDS: ASPIRIN 81 MG ENTERIC TABLET PO (09:06)
[2024-11-24] MEDS: buPROPion HCL SR (12 HR) 150 MG TAB PO ×2 (09:06→21:02)
--- NOTE | 2024-11-24 11:00 | P.PNIM_ITS ---
Progress Note: A&P Assessment and Plan (1) Chronic hypoxic respiratory failure, on home oxygen therapy: Code(s): J96.11 - Chronic respiratory failure with hypoxia; Z99.81 - Dependence on supplemental oxygen Status: Acute Assessment and Plan: -Chronic, back on baseline 3L NC. (2) Pleural effusion: Code(s): J90 - Pleural effusion, not elsewhere classified Status: Inactive Assessment and Plan: - CXR: Chronic bibasilar interstitial disease with a moderate right-sided pleural effusion - Chest CTA No pulmonary embolus. No aneurysmal dilatation or dissection within the thoracic aorta. Small bilateral pleural effusions with adjacent compressive atelectasis. - Venous doppler: No DVT - Echo obtained: Summary 1. Left ventricular chamber dimension is normal. 2. There is mildly increased left ventricular wall thickness. 3. Left ventricular systolic function is mildly reduced with an ejection fraction by Biplane Method of Discs of 49 %. 4. Left ventricular wall motion shows inf hypokinesis. 5. The left ventricular diastolic function is grade I diastolic dysfunction. 6. Right ventricular chamber dimension is normal. 7. Right ventricular systolic function is normal. 8. There is no aortic valve stenosis. 9. There is no mitral valve regurgitation. 10. There is no tricuspid valve regurgitation. - Repeat CXR showed: Impression: 1: Progression of coarse interstitial infiltrates, compatible with combination of chronic fibrosis and pneumonia. 2: Small right pleural effusion. - Complicating Factors: COPD with chronic oxygen supplementation (3L NC) - Viral PCR: negative for Flu/COVID/RSV - Right-sided pleural effusion was noted to be moderate in size on chest x-ray though does not appear significant enough to drain. - Does not appear volume overloaded thus will stop IV diuretics and resume his home lasix 60 daily as prescribed - Continue scheduled bronchodilators. Encourage incentive spirometry. - Cornet and Mucinex ordered to help mobilize secretions as he does have quite a bit of rhonchi in the right upper lobe. - Monitor vital signs, I&Os, neuro status and patient is a fall risk - Follow WBC, serum electrolytes, temperature curves and cultures (3) Chronic obstructive pulmonary disease: Code(s): J44.9 - Chronic obstructive pulmonary disease, unspecified Status: Acute Assessment and Plan: Chronic, does not appear to be in acute exacerbation given no wheezing heard on exam. - monitor (4) Pneumonia: Code(s): J18.9 - Pneumonia, unspecified organism Status: Acute Assessment and Plan: - Chest X-ray: Impression: 1: Progression of coarse interstitial infiltrates, compatible with combination of chronic fibrosis and pneumonia. 2: Small right pleural effusion. - Started on Azithromycin 500 mg PO daily and Ceftriaxone 1 gram IVPB daily. (5) Congestive heart failure: Code(s): I50.9 - Heart failure, unspecified Status: Acute Assessment and Plan: chronic, continue home medications - echo obtained, pending read (6) Chronic kidney disease, stage 3: Code(s): N18.30 - Chronic kidney disease, stage 3 unspecified Status: Acute Assessment and Plan: BUN/Cr 31/1.5 on admission, appears around baseline. - BUN/Cr 22/1.3 on am labs - Renally dose medications - Avoid nephrotoxic medications - Monitor I/O (7) SVT (supraventricular tachycardia): Code(s): I47.10 - Supraventricular tachycardia, unspecified Status: Acute Assessment and Plan: * Patient had 27 beat run of SVT over night, along with a short run per nocturnal GREG. Patient was asymptomatic. * Patient magnesium 1.8, patient received a Magnesium Sulfate 2 gm IVPB x1. Repeat magnesium 2.4. * Potassium 3.5. Patient received Potassium Chloride 40 meq PO x1. Repeat potassium 4.2. * Cardiology consult. (8) Essential hypertension: Code(s): I10 - Essential (primary) hypertension Status: Acute Assessment and Plan: Chronic, continue home medications - carvedilol 12.5 mg BID - lasix 60 mg daily - losartan 50 mg daily - blood pressure has been stable, continue to monitor (9) Spinal stenosis, lumbar region without neurogenic claudication: Code(s): M48.061 - Spinal stenosis, lumbar region without neurogenic claudication Status: Acute Assessment and Plan: * Morphine 30 mg PO daily and Acetaminophen 650 mg PO q 6 PRN. Subjective Date/time seen: 11/24/24 11:00 Interval history: Patient reports coughing up green sputum today. Patient denies chest pain, palpitations, headache, dizziness, nausea, or vomiting. Review of Systems Review of Systems: All systems reviewed & are unremarkable except as noted in HPI and below Exam Const: General: comfortable and no acute distress Resp: Auscultation: diminished lung sounds Other: slightly coarse Cardio: Rate: regular rate Rhythm: regular rhythm Other: Telemetry SR 75. GI: GI Palp: Yes Soft to palpation Auscultation: normal bowel sounds Skin: General skin exam: no rashes or lesions noted Neuro: Speech: normal speech Extrem: General: no pedal edema Psych: Mental Status: mental status grossly normal Affect: normal affect Objective Data Vital Signs Vital Signs: Vital Signs - 24 hr 11/23/24 12:00 11/23/24 13:05 11/23/24 13:15 Temperature Pulse Rate 71 81 82 Respiratory Rate 18 18 Blood Pressure Pulse Oximetry Oxygen Delivery Oxygen Flow Rate 11/23/24 14:00 11/23/24 16:00 11/23/24 20:00 Temperature 96.9 F L Pulse Rate 68 71 Respiratory Rate 20 Blood Pressure 113/50 L Pulse Oximetry 91 98 Oxygen Delivery Nasal Cannula Oxygen Flow Rate 3 11/23/24 20:59 11/23/24 21:00 11/23/24 21:00 Temperature Pulse Rate 68 75 75 Respiratory Rate 18 Blood Pressure Pulse Oximetry 96 Oxygen Delivery Nasal Cannula Oxygen Flow Rate 3 11/23/24 21:10 11/23/24 21:30 11/24/24 00:00 Temperature 97.9 F Pulse Rate 68 66 56 L Respiratory Rate 18 16 Blood Pressure 112/44 L Pulse Oximetry 98 Oxygen Delivery Oxygen Flow Rate 11/24/24 02:51 11/24/24 02:59 11/24/24 04:00 Temperature Pulse Rate 64 63 59 L Respiratory Rate 18 18 Blood Pressure Pulse Oximetry Oxygen Delivery Oxygen Flow Rate 11/24/24 05:33 11/24/24 09:06 Temperature 97.4 F L Pulse Rate 62 62 Respiratory Rate 16 Blood Pressure 119/42 L Pulse Oximetry 98 Oxygen Delivery Oxygen Flow Rate Intake/Output Intake/Output: Intake & Output 11/21/24 11/22/24 11/23/24 11/24/24 23:59 23:59 23:59 23:59 Intake Total 0 1150 1438 1270 Output Total 850 4511 2325 625 Balance -850 -250 -437 645 Meds/Results Medications: Active Medications Generic Name Dose Route Start Last Admin Trade Name Freq PRN Reason Stop Dose Admin Acetaminophen 650 mg 11/20/24 23:51 11/23/24 18:23 Acetaminophen 325 Mg Tablet PO 650 mg Q6H PRN Administration Mild Pain (1-3) or Fever Albuterol/Ipratropium 3 ml 11/20/24 21:55 11/24/24 07:57 Ipratropium 0.5 Mg/Albuterol Sulfate 2.5 Mg Ampul.Neb 3 Ml INHALATION 3 ml Q6HRT GIOVANNY Administration Aspirin 81 mg 11/21/24 12:23 11/24/24 09:06 Aspirin 81 Mg Enteric Tablet PO 81 mg DAILY GIOVANNY Administration Atorvastatin Calcium 80 mg 11/21/24 12:23 11/24/24 09:05 Atorvastatin 40 Mg Tablet PO 80 mg DAILY GIOVANNY Administration Azithromycin 500 mg 11/24/24 09:00 11/24/24 09:05 Azithromycin 250 Mg Tablet PO 11/27/24 09:01 500 mg DAILY GIOVANNY Administration Bupropion HCl 150 mg 11/21/24 21:00 11/24/24 09:06 Bupropion Hcl Sr (12 Hr) 150 Mg Tab PO 150 mg Q12HR GIOVANNY Administration Fenofibrate 160 mg 11/21/24 12:23 11/24/24 09:06 Fenofibrate 160 Mg Tablet PO 160 mg DAILY GIOVANNY Administration Finasteride 5 mg 11/21/24 12:23 11/24/24 09:05 Finasteride 5 Mg Tablet PO 5 mg DAILY GIOVANNY Administration Furosemide 60 mg 11/21/24 12:25 11/24/24 09:05 Furosemide 20 Mg Tablet PO 60 mg DAILY GIOVANNY Administration Guaifenesin 1,200 mg 11/21/24 09:00 11/24/24 09:04 Guaifenesin 12 Hr 600 Mg Tabcr PO 1,200 mg Q12HR GIOVANNY Administration Ceftriaxone Sodium 1 gm in 50 mls @ 100 mls/hr 11/23/24 09:00 11/24/24 09:06 Rocephin 1 Gm/Ns 50 Ml IVPB 100 mls/hr Q24H GIOVANNY Administration Lorazepam 0.5 mg 11/21/24 16:39 11/23/24 15:54 Lorazepam (*Crx) 0.5 Mg Tablet PO 0.5 mg BID PRN Administration anxiety Losartan Potassium 50 mg 11/21/24 12:25 11/24/24 09:06 Losartan Potassium 50 Mg Tablet PO 50 mg DAILY GIOVANNY Administration Metoprolol Succinate 50 mg 11/24/24 21:00 Metoprolol Succinate Ext Rel 50 Mg Tabcr PO HS GIOVANNY Morphine Sulfate 30 mg 11/21/24 12:25 11/24/24 09:05 Morphine Sulfate (*Crx) 30 Mg Tabcr PO 30 mg QAM GIOVANNY Administration Polyethylene Glycol 17 gm 11/23/24 10:15 11/24/24 09:06 Polyethylene Glycol 3350 17 Gm Powd.Pack PO 17 gm QAM GIOVANNY Administration Senna/Docusate Sodium 1 tab 11/22/24 21:00 11/23/24 20:59 Senna/Docusate Sodium Tablet PO 1 tab HS GIOVANNY Administration Sertraline HCl 50 mg 11/21/24 12:25 11/24/24 09:05 Sertraline Hcl 50 Mg Tablet PO 50 mg DAILY GIOVANNY Administration Tamsulosin HCl 0.4 mg 11/21/24 12:25 11/24/24 09:05 Tamsulosin Hcl 0.4 Mg Capsule PO 0.4 mg DAILY GIOVANNY Administration Trazodone HCl 100 mg 11/21/24 21:00 11/23/24 20:59 Trazodone Hcl 50 Mg Tablet PO 100 mg HS GIOVANNY Administration Radiology Results: ITS Impressions Chest CTA 11/20/24 19:21 IMPRESSION: No pulmonary embolus. No aneurysmal dilatation or dissection within the thoracic aorta. Small bilateral pleural effusions with adjacent compressive atelectasis. Venous Doppler Study 11/21/24 08:38 IMPRESSION: 1. No deep venous thrombosis. 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 2: Small right pleural effusion. Labs Labs: Laboratory Results - last 24 hr 11/24/24 11/24/24 00:00 05:37 WBC 6.0 RBC 2.84 L Hgb 8.7 L Hct 28.1 L MCV 98.9 MCH 30.6 MCHC 31.0 L RDW 14.0 Plt Count 258 MPV 10.5 H Immature Gran % (Auto) 1.0 H Neut % (Auto) 62.7 Lymph % (Auto) 20.7 [place] % (Auto) 12.5 H Eos % (Auto) 2.8 Baso % (Auto) 0.3 Lymph # (Auto) 1.24 [place] # (Auto) 0.8 H Eos # (Auto) 0.2 Baso # (Auto) 0.0 Abs Immat Gran (auto) 0.06 H Absolute Neuts (auto) 3.7 Absolute Nucleated RBC 0.000 Nucleated RBC % 0.0 Sodium 137 Potassium 4.2 Chloride 104 Carbon Dioxide 32 H Anion Gap 1 L BUN 22 H Creatinine 1.30 Estim Creat Clear Calc 43 Estimated GFR 53 L Glucose 105 Calcium 8.9 Magnesium 1.8 2.4 H Total Bilirubin 0.5 AST 33 ALT 19 Alkaline Phosphatase 67 Troponin I < 0.012 Total Protein 6.0 L Albumin 3.0 L Quality VTE Prophylaxis VTE prophylaxis: mechanical ordered
[2024-11-24] MEDS: LORazepam (*CRX) 0.5 MG TABLET PO ×2 (11:20→21:02)
--- NOTE | 2024-11-24 17:04 | PM.CNCAR ---
Assessment and Plan Assessment and plan (1) Essential hypertension: Code(s): I10 - Essential (primary) hypertension Status: Acute (2) Congestive heart failure: Code(s): I50.9 - Heart failure, unspecified Status: Acute (3) Ventricular tachycardia: Code(s): I47.20 - Ventricular tachycardia, unspecified Status: Acute Plan 1. Stable CAD 2. Chronic systolic heart failure, compensated 3. Monomorphic VT 4. Chronic hypoxemic respiratory failure/COPD/I LD -echo shows EF 49%, grade 1 diastolic dysfunction -will switch carvedilol to metoprolol succinate -continue losartan 50 -consider adding Aldactone 12.5 mg for his blood pressure allows -will consider SGOT 2 inhibitor as an outpatient -he has anemia which needs to be further investigated -continue aspirin 81 statin History of Present Illness History of Present Illness Consult date/time: 11/24/24 17:04 Reason For Visit: Dyspnea with exertion, CHF Narrative: This is a pleasant 79-year-old male with combined systolic and diastolic congestive heart failure, ischemic cardiomyopathy, chronic hypoxic respiratory failure on 3 L home oxygen, chronic obstructive pulmonary disease, hypertension, and other comorbidities who was admitted with chronic acute on chronic hypoxemic respiratory failure. Cardiology consulted for an episode of 24 beat VT when he was sleeping at night. Telemetry reviewed occasional PVC seen and DVT seen last night Echo shows an EF of 49% which is similar to his prior systolic functions He is doing well denies any chest pain he was anemic on exam sitting and watching TV History of prior mid LAD DAYLIN placed in 2019 with EF of 20-25% then from which he recovered Review of Systems Review of Systems: 12 systems were reviewed and are negative except for as per HPI. All systems reviewed & are unremarkable except as noted in HPI and below FORMERLY [facility], [facility] Past Medical History Medical History (Updated 11/24/24 @ 17:12 by Chelsey Jeff MD) Congestive heart failure Colon polyps Chronic obstructive pulmonary disease Gastroesophageal reflux disease Osteoarthritis Chronic kidney disease, stage 3 Benign prostatic hyperplasia Cancer of lower jaw bone (1986) Vitamin D deficiency Essential hypertension Depression Chronic hypoxic respiratory failure, on home oxygen therapy Erythema multiforme Essential tremor Hyperlipidemia 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 History of tobacco use Polio (1951) Other chronic pain Aortic stenosis Mild - Echo 05/15/2022 NSTEMI (non-ST elevated myocardial infarction) (08/2019) Normal colonoscopy (04/2015) Ischemic cardiomyopathy Echocardiogram 09/2021: Mildly reduced left ventricular systolic function EF of 45-50%, grade 1 diastolic dysfunction, inferior wall inferior septal wall basal inferior wall and mid inferior lateral wall hypokinesis with mild left atrial and large Atherosclerotic heart disease of solomon coronary artery without angina pectoris Abdominal aortic aneurysm, without rupture 02/07 CT Restless legs syndrome Spinal stenosis, lumbar region without neurogenic claudication Surgical History Surgical History History of tonsillectomy and adenoidectomy History of repair of rotator cuff bilateral History of colonoscopy with polypectomy History of bowel resection due to obstruction Presence of coronary angioplasty implant and graft History of coronary artery stent placement X2 History of mandibular surgery (1986) reconstructive surgery right mandible related to cancer Family History Family History Mother Diabetes mellitus Acute myocardial infarction Father Colon cancer COPD (chronic obstructive pulmonary disease) Sibling Colon cancer Acute myocardial infarction Lung cancer COPD (chronic obstructive pulmonary disease) Sibling COPD (chronic obstructive pulmonary disease) Sibling Congestive heart failure Sibling Dementia Social History Social History Social History: Surrogate medical decision maker: Code status: Modified code, no intubation. Smoking packs per day: 2 Smoking cigarettes per day: 40.0 Years smoked: 40 Smoking pack-years: 80.00 Smoking status: Former smoker Second hand tobacco smoke exposure: No Alcohol intake: former Substance use: never Substance use type: does not use Other substance usage details: quit alcohol in 2010 Last use: Last alcohol use 2010 Do You Feel Safe in your Home?: Yes Lack of Transportation: No Lack of Food: Never True Current Housing: I Have Housing Concerned About Future Housing: No Difficulty Paying Gas/Electric Bills: No Difficulty Paying for Meds: No Currently Unemployed: No Education: Decline to Answer Difficulty w/ Childcare or Family Care: No Living arrangements: with family Additional living arrangements comments: . Lives in [place] with son and [id number]. 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: retired Additional occupation/education comments: [employer] Spiritual care concerns: No Agree to blood products: Yes Meds Home Medications and Allergies Home Medications ?Medication ?Instructions ?Recorded ?Confirmed ?Type acetaminophen 500 mg tablet 500 mg PO Q6H PRN Pain 03/18/23 11/21/24 History (Tylenol Extra Strength) finasteride 5 mg tablet (Proscar) 5 mg PO DAILY 03/18/23 11/21/24 History multivitamin 1 tablet PO DAILY 03/18/23 11/21/24 History nitroglycerin 0.3 mg sublingual 0.3 mg sublingual Q5M PRN Chest 03/18/23 11/21/24 History tablet Pain cetirizine 10 mg capsule (Zyrtec) 10 mg PO DAILY PRN allergies 06/13/23 11/21/24 History aspirin 81 mg tablet,delayed 81 mg PO DAILY #90 tabs 06/15/23 11/21/24 Rx release polyethylene glycol 3350 17 gram 17 g PO QAM PRN Constipation #30 ea 06/15/23 11/21/24 Rx oral powder packet (Miralax) fenofibrate 160 mg tablet 160 mg PO DAILY #90 tabs 09/16/23 11/21/24 Rx losartan 50 mg tablet 50 mg PO DAILY #90 tabs 02/24/24 11/21/24 Rx carvedilol 12.5 mg tablet 12.5 mg PO BID 02/25/24 11/21/24 History nebulizer accessories #1 ea 04/12/24 11/21/24 Rx nebulizer and compressor #1 ea 04/12/24 11/21/24 Rx ipratropium 0.5 mg-albuterol 3 mg 3 ml inhalation Q8H PRN shortness 04/19/24 11/21/24 Rx (2.5 mg base)/3 mL nebulization of breath or wheezing #180 mL soln sulindac 200 mg tablet 200 mg PO BID #180 tabs 04/27/24 11/21/24 Rx esomeprazole magnesium 20 mg See Rx Instructions .Route 04/28/24 11/21/24 Rx capsule,delayed release .COMPLEX #90 caps linaclotide 290 mcg capsule See Rx Instructions .Route 04/28/24 11/21/24 Rx (Linzess) .COMPLEX #90 caps sertraline 50 mg tablet 50 mg PO DAILY #90 tabs 07/18/24 11/21/24 Rx budesonide 160 mcg-glycopyr 9 See Rx Instructions .Route 07/27/24 11/21/24 Rx mcg-formot 4.8 mcg/actuation HFA .COMPLEX #10.7 grams inhaler (Breztri Aerosphere) trazodone 100 mg tablet 100 mg PO HS Insomnia #90 tabs 08/07/24 11/21/24 Rx guaifenesin 1,200 mg tablet, 1,200 mg PO BID PRN cough 08/11/24 11/21/24 History extended release 12 hr (Mucinex) etodolac 500 mg tablet 500 mg PO BID #60 tabs 09/20/24 11/21/24 Rx bupropion HCl 150 mg tablet,12 hr 150 mg PO BID #180 tabs 09/22/24 11/21/24 Rx sustained-release albuterol sulfate 90 mcg/actuation 2 puff inhalation Q4H PRN 10/03/24 11/21/24 Rx aerosol inhaler Shortness Of Breath Or Wheezing #8.5 grams tamsulosin 0.4 mg capsule 0.4 mg PO DAILY #90 caps 10/12/24 11/21/24 Rx atorvastatin 80 mg tablet 80 mg PO DAILY #90 tabs 10/26/24 11/21/24 Rx morphine 30 mg tablet,extended 30 mg PO QAM #30 tabs 10/26/24 11/21/24 Rx release lorazepam 0.5 mg tablet 0.5 mg PO BID PRN anxiety #40 tabs 11/02/24 11/21/24 Rx furosemide 40 mg tablet 60 mg PO DAILY 11/04/24 11/21/24 History Saccharomyces boulardii 250 mg 250 mg PO TID #30 caps 11/06/24 11/21/24 Rx capsule (Florastor) simethicone 125 mg capsule (Gas-X 125 mg PO PRN 11/21/24 11/21/24 History Extra Strength) Allergies Allergy/AdvReac Type Severity Reaction Status Date / Time clonazepam AdvReac Severe Drowsy Verified 11/21/24 07:47 roflumilast (From Dalires) AdvReac Severe Diarrhea Verified 11/21/24 07:47 Vital Signs Vital Signs - 24 hr 11/23/24 20:00 11/23/24 20:59 11/23/24 21:00 Temperature Pulse Rate 68 75 Respiratory Rate 18 Blood Pressure Pulse Oximetry 98 Oxygen Delivery Nasal Cannula Oxygen Flow Rate 3 Fraction of Inspired Oxygen 11/23/24 21:00 11/23/24 21:10 11/23/24 21:30 Temperature 36.6 C Pulse Rate 75 68 66 Respiratory Rate 18 16 Blood Pressure 112/44 L Pulse Oximetry 96 98 Oxygen Delivery Nasal Cannula Oxygen Flow Rate 3 Fraction of Inspired Oxygen 11/24/24 00:00 11/24/24 02:51 11/24/24 02:59 Temperature Pulse Rate 56 L 64 63 Respiratory Rate 18 18 Blood Pressure Pulse Oximetry Oxygen Delivery Oxygen Flow Rate Fraction of Inspired Oxygen 11/24/24 04:00 11/24/24 05:33 11/24/24 07:57 Temperature 36.3 C L Pulse Rate 59 L 62 Respiratory Rate 16 Blood Pressure 119/42 L Pulse Oximetry 98 94 Oxygen Delivery Nasal Cannula Oxygen Flow Rate 3 Fraction of Inspired Oxygen 32 11/24/24 07:57 11/24/24 08:02 11/24/24 08:10 Temperature Pulse Rate 71 68 68 Respiratory Rate 20 20 Blood Pressure Pulse Oximetry Oxygen Delivery Oxygen Flow Rate Fraction of Inspired Oxygen 11/24/24 09:06 11/24/24 12:02 11/24/24 13:22 Temperature Pulse Rate 62 69 76 Respiratory Rate 20 Blood Pressure Pulse Oximetry Oxygen Delivery Oxygen Flow Rate Fraction of Inspired Oxygen 11/24/24 13:33 Temperature Pulse Rate 72 Respiratory Rate 20 Blood Pressure Pulse Oximetry Oxygen Delivery Oxygen Flow Rate Fraction of Inspired Oxygen Exam Narrative: AF HR 74 RR 20 SpO2 95 (3L NC baseline) BP 123/51 General: male in no acute respiratory distress who is nontoxic appearing, lying semi recumbent in bed. HEENT: Normocephalic. Atraumatic. Extraocular movement intact. Sclera clear and anicteric.No facial asymmetry. Chest: Lungs are clear in the uppers with rhonchi/crackles to auscultation bilaterally worse on the left than the right. No wheezes. CV: Heart was regular rate and rhythm. S1/S2. No murmurs, gallops, or rubs. Abd: Abdomen was soft. Nontender. Nondistended. Positive bowel sounds. No organomegaly or masses. Neuro: Patient is alert and oriented x4. Speech is clear. Const: General: comfortable, no acute distress and uncomfortable Eyes: Sclera: sclerae normal Resp: Effort & Inspection: normal respiratory effort Auscultation: wheezes expiratory wheezes and diminished lung sounds Other: slightly coarse Cardio: Rate: regular rate Rhythm: regular rhythm Other: Telemetry SR 75. GI: Auscultation: normal bowel sounds Skin: General skin exam: no rashes or lesions noted Neuro: Speech: normal speech Extrem: General: no pedal edema Psych: Mental Status: mental status grossly normal Affect: normal affect Results Labs and Meds 11/24/24 05:37 11/24/24 05:37 Lab results: Cardiac Enzymes 11/24/24 Range/Units 05:37 AST 33 (17-59) U/L Troponin I < 0.012 (0.000-0.034) ng/mL CBC 11/24/24 Range/Units 05:37 WBC 6.0 (4.5-10.0) K/mm3 RBC 2.84 L (4.6-6.20) M/mm3 Hgb 8.7 L (14.0-18.0) g/dL Hct 28.1 L (42.0-52.0) % Plt Count 258 (150-375) k/mm3 Lymph # (Auto) 1.24 (0.9-3.2) K/mm3 [place] # (Auto) 0.8 H (0.1-0.6) K/mm3 Eos # (Auto) 0.2 (0-0.3) K/mm3 Baso # (Auto) 0.0 (0.0-0.1) K/mm3 Comprehensive Metabolic Panel 11/24/24 Range/Units 05:37 Sodium 137 (137-145) mmol/L Potassium 4.2 (3.4-5.0) mmol/L Chloride 104 (98-107) mmol/L Carbon Dioxide 32 H (22-30) mmol/L BUN 22 H (9-20) mg/dL Creatinine 1.30 (0.7-1.3) mg/dL Glucose 105 (65-110) mg/dL Calcium 8.9 (8.4-10.2) mg/dL AST 33 (17-59) U/L ALT 19 (6-50) U/L Alkaline Phosphatase 67 (38-126) U/L Total Protein 6.0 L (6.3-8.2) g/dL Albumin 3.0 L (3.5-5.1) g/dL Intake and Output 11/24/24 11/24/24 11/24/24 07:59 15:59 23:59 Intake Total 600 910 Output Total 625 Balance -25 910 Intake: IV 50 Magnesium Sulf 2 gm/Water 50Ml 50 2 gm In 50 ml @ 25 mls/hr IVPB ONCE ONE Rx#:[id number] Oral 550 910 Output: Urine 625 Patient Weight 11/24/24 23:59 Weight 86.8 kg
[2024-11-24 19:41] LABS: Iron 52 ug/dL (49-181)
[2024-11-24 19:50] LABS: Percent Iron Saturation 18 % (20-50); TOTAL IRON BINDING CAPACITY 296 ug/dL (265-497)
[2024-11-24] MEDS: SENNA/DOCUSATE SODIUM TABLET 1 TAB PO (21:02)
[2024-11-24] MEDS: traZODone HCL 50 MG TABLET 100 MG PO (21:02)
[2024-11-24] MEDS: METOPROLOL SUCCINATE EXT REL 50 MG TABCR PO (21:05)
[2024-11-24] MEDS: ACETAMINOPHEN 325 MG TABLET 650 MG PO (21:49)
[2024-11-24 22:13] LABS: Folic Acid 8.1 ng/mL (2.76->20)
[2024-11-25] VITALS (19 sets, daily range): BP systolic 99–120; BP diastolic 44–54; PULSE 51–87; RESP 18–20; TEMP 36.6–36.8; O2SAT 91–97
[2024-11-25] MEDS: IPRATROPIUM 0.5 MG/ALBUTEROL SULFATE 2.5 MG AMPUL.NEB 3 ML INHALATION ×4 (01:55→21:46)
[2024-11-25 07:31] LABS: Basophils Percent Auto 0.5 % (0.2-1.2); Eosinophils Absolute Auto 0.3 K/mm3 (0-0.3); Eosinophils Percent Auto 3.9 % (0-4.4); Hematocrit 30.1 % (42.0-52.0); Hemoglobin 9.5 g/dL (14.0-18.0); Immature Granulocyte Absolute 0.06 K/mm3 (0.00-0.031); Immature Granulocyte Percent A 0.9 % (0-0.5); Lymphocytes Absolute Auto 1.26 K/mm3 (0.9-3.2); Lymphocytes Percent Auto 19.1 % (18.3-44.2); Mean Corpuscular HGB Conc 31.6 g/dl (32-36); Mean Corpuscular Hemoglobin 30.5 pg (26-34); Mean Corpuscular Volume 96.8 fl (80-100); Mean Platelet Volume 10.5 fl (7.4-10.4); Monocytes Absolute Auto 0.8 K/mm3 (0.1-0.6); Monocytes Percent Auto 12.3 % (2.6-8.5); Neutrophils Absolute Auto 4.2 K/mm3 (1.3-6.7); Neutrophils Percent Auto 63.3 % (45.5-73.1); Platelet Count Result 283 k/mm3 (150-375); Red Blood Count 3.11 M/mm3 (4.6-6.20); Red Cell Distribution Width 13.9 % (11.5-14.5); White Blood Count 6.6 K/mm3 (4.5-10.0)
[2024-11-25 08:53] LABS: Alanine Aminotransferase 23 U/L (6-50); Albumin Level 3.5 g/dL (3.5-5.1); Alkaline Phosphatase 68 U/L (38-126); Anion Gap 5 mmol/L (4-12); Aspartate Amino Transferase 33 U/L (17-59); Bilirubin,Total 0.4 mg/dL (0.2-1.3); Blood Urea Nitrogen 19 mg/dL (9-20); CREATININE 1.25 mg/dL (0.7-1.3); Calcium 9.1 mg/dL (8.4-10.2); Carbon Dioxide 32 mmol/L (22-30); Chloride 99 mmol/L (98-107); Estimated CRCL calculation 45 ml/min; Estimated Glomerular Filt Rate 56; Glucose 98 mg/dL (65-110); Potassium 4.3 mmol/L (3.4-5.0); Sodium 136 mmol/L (137-145)
[2024-11-25] MEDS: LOSARTAN POTASSIUM 50 MG TABLET PO (09:24)
[2024-11-25] MEDS: ATORVASTATIN 40 MG TABLET 80 MG PO (09:24)
[2024-11-25] MEDS: FUROSEMIDE 20 MG TABLET 60 MG PO (09:24)
[2024-11-25] MEDS: buPROPion HCL SR (12 HR) 150 MG TAB PO ×2 (09:24→22:08)
[2024-11-25] MEDS: TAMSULOSIN HCL 0.4 MG CAPSULE PO (09:24)
[2024-11-25] MEDS: SERTRALINE HCL 50 MG TABLET PO (09:25)
[2024-11-25] MEDS: MORPHINE SULFATE (*CRX) 30 MG TABCR PO (09:25)
[2024-11-25] MEDS: guaiFENesin 12 HR 600 MG TABCR 1200 MG PO ×2 (09:25→22:08)
[2024-11-25] MEDS: FENOFIBRATE 160 MG TABLET PO (09:25)
[2024-11-25] MEDS: AZITHROMYCIN 250 MG TABLET 500 MG PO (09:25)
[2024-11-25] MEDS: FINASTERIDE 5 MG TABLET PO (09:26)
[2024-11-25] MEDS: polyethylene glycoL 3350 17 GM POWD.PACK PO (09:26)
[2024-11-25] MEDS: ASPIRIN 81 MG ENTERIC TABLET PO (09:26)
[2024-11-25] MEDS: LORazepam (*CRX) 0.5 MG TABLET PO ×2 (09:32→22:08)
--- NOTE | 2024-11-25 11:45 | P.PNIM_ITS ---
Progress Note: A&P Assessment and Plan (1) Chronic hypoxic respiratory failure, on home oxygen therapy: Code(s): J96.11 - Chronic respiratory failure with hypoxia; Z99.81 - Dependence on supplemental oxygen Status: Acute Assessment and Plan: -Chronic, back on baseline 3L NC. (2) Pleural effusion: Code(s): J90 - Pleural effusion, not elsewhere classified Status: Inactive Assessment and Plan: - CXR: Chronic bibasilar interstitial disease with a moderate right-sided pleural effusion - Chest CTA No pulmonary embolus. No aneurysmal dilatation or dissection within the thoracic aorta. Small bilateral pleural effusions with adjacent compressive atelectasis. - Venous doppler: No DVT - Echo obtained: Summary 1. Left ventricular chamber dimension is normal. 2. There is mildly increased left ventricular wall thickness. 3. Left ventricular systolic function is mildly reduced with an ejection fraction by Biplane Method of Discs of 49 %. 4. Left ventricular wall motion shows inf hypokinesis. 5. The left ventricular diastolic function is grade I diastolic dysfunction. 6. Right ventricular chamber dimension is normal. 7. Right ventricular systolic function is normal. 8. There is no aortic valve stenosis. 9. There is no mitral valve regurgitation. 10. There is no tricuspid valve regurgitation. - Repeat CXR showed: Impression: 1: Progression of coarse interstitial infiltrates, compatible with combination of chronic fibrosis and pneumonia. 2: Small right pleural effusion. - Complicating Factors: COPD with chronic oxygen supplementation (3L NC) - Viral PCR: negative for Flu/COVID/RSV - Right-sided pleural effusion was noted to be moderate in size on chest x-ray though does not appear significant enough to drain. - Does not appear volume overloaded thus will stop IV diuretics and resume his home lasix 60 daily as prescribed - Continue scheduled bronchodilators. Encourage incentive spirometry. - Cornet and Mucinex ordered to help mobilize secretions as he does have quite a bit of rhonchi in the right upper lobe. - Monitor vital signs, I&Os, neuro status and patient is a fall risk - Follow WBC, serum electrolytes, temperature curves and cultures (3) Chronic obstructive pulmonary disease: Code(s): J44.9 - Chronic obstructive pulmonary disease, unspecified Status: Acute Assessment and Plan: Chronic, does not appear to be in acute exacerbation given no wheezing heard on exam. - monitor (4) Pneumonia: Code(s): J18.9 - Pneumonia, unspecified organism Status: Acute Assessment and Plan: - Chest X-ray: Impression: 1: Progression of coarse interstitial infiltrates, compatible with combination of chronic fibrosis and pneumonia. 2: Small right pleural effusion. - Started on Azithromycin 500 mg PO daily and Ceftriaxone 1 gram IVPB daily. - Duonebs q 6. (5) Congestive heart failure: Code(s): I50.9 - Heart failure, unspecified Status: Acute Assessment and Plan: chronic, continue home medications - echo obtained, pending read (6) Chronic kidney disease, stage 3: Code(s): N18.30 - Chronic kidney disease, stage 3 unspecified Status: Acute Assessment and Plan: BUN/Cr 31/1.5 on admission, appears around baseline. - BUN/Cr 19/1.25 on am labs - Renally dose medications - Avoid nephrotoxic medications - Monitor I/O (7) SVT (supraventricular tachycardia): Code(s): I47.10 - Supraventricular tachycardia, unspecified Status: Acute Assessment and Plan: * Patient had 27 beat run of SVT over night on 11/23/24, along with a short run per nocturnal GREG. Patient was asymptomatic. * Patient magnesium 1.8, patient received a Magnesium Sulfate 2 gm IVPB x1. Repeat magnesium 2.4. Magnesium 2.0 today. * Potassium 3.5. Patient received Potassium Chloride 40 meq PO x1. Repeat potassium 4.2. Potassium today was 4.3. * Cardiology consult, appreciate recommendations. -echo shows EF 49%, grade 1 diastolic dysfunction -will switch carvedilol to metoprolol succinate -continue losartan 50 -consider adding Aldactone 12.5 mg for his blood pressure allows -will consider SGOT 2 inhibitor as an outpatient -he has anemia which needs to be further investigated -continue aspirin 81 statin (8) Essential hypertension: Code(s): I10 - Essential (primary) hypertension Status: Acute Assessment and Plan: Chronic, continue home medications - carvedilol 12.5 mg BID - lasix 60 mg daily - losartan 50 mg daily - blood pressure has been stable, continue to monitor (9) Spinal stenosis, lumbar region without neurogenic claudication: Code(s): M48.061 - Spinal stenosis, lumbar region without neurogenic claudication Status: Acute Assessment and Plan: * Morphine 30 mg PO daily and Acetaminophen 650 mg PO q 6 PRN. (10) Constipation: Code(s): K59.00 - Constipation, unspecified Status: Acute Assessment and Plan: * Docusate sodium/ Senna tab 1 tablet oral HS and Miralax 17 gram PO daily. * Add Bisacodyl suppository 10 mg MS x 1. * Encourage water intake. Subjective Date/time seen: 11/25/24 11:45 Interval history: Patient sitting up in chair. Daughter at bedside. Patient reports coughing up some green drainage. Patient denies chest pain, palpitations, headache, dizziness, nausea, or vomiting. Patient reports feeling a little better today. Patient reports that he has not had a bowel movement since Thursday and is agreeable with a suppository added to bowel regimen. Patient reports passing gas. Son Ray called wanting update, returned Ray's call with update. Review of Systems Review of Systems: All systems reviewed & are unremarkable except as noted in HPI and below Exam Const: General: comfortable and no acute distress Resp: Effort & Inspection: normal respiratory effort Auscultation: diminished lung sounds Other: slightly coarse Cardio: Rate: regular rate Rhythm: regular rhythm Other: Telemetry- SR 75. GI: GI Palp: Yes Soft to palpation Auscultation: normal bowel sounds Skin: General skin exam: no rashes or lesions noted Neuro: Speech: normal speech Extrem: General: no pedal edema Psych: Mental Status: mental status grossly normal Affect: normal affect Objective Data Vital Signs Vital Signs: Vital Signs - 24 hr 11/24/24 12:02 11/24/24 13:22 11/24/24 13:33 Temperature Pulse Rate 69 76 72 Respiratory Rate 20 20 Blood Pressure Pulse Oximetry Oxygen Delivery Oxygen Flow Rate 11/24/24 14:00 11/24/24 16:02 11/24/24 20:00 Temperature 98.1 F Pulse Rate 68 69 67 Respiratory Rate 18 Blood Pressure 110/55 L Pulse Oximetry 100 Oxygen Delivery Oxygen Flow Rate 11/24/24 21:05 11/24/24 21:16 11/24/24 21:18 Temperature Pulse Rate 70 74 Respiratory Rate 20 Blood Pressure Pulse Oximetry 96 Oxygen Delivery Nasal Cannula Oxygen Flow Rate 3 11/24/24 21:29 11/24/24 21:56 11/25/24 00:00 Temperature 97.8 F Pulse Rate 73 77 55 L Respiratory Rate 20 22 H Blood Pressure 139/59 L Pulse Oximetry 93 Oxygen Delivery Oxygen Flow Rate 11/25/24 01:56 11/25/24 02:08 11/25/24 04:00 Temperature Pulse Rate 61 65 51 L Respiratory Rate 20 20 Blood Pressure Pulse Oximetry Oxygen Delivery Oxygen Flow Rate 11/25/24 06:00 11/25/24 08:00 11/25/24 08:03 Temperature 98.3 F Pulse Rate 56 L 61 Respiratory Rate 20 Blood Pressure 120/52 L Pulse Oximetry 96 92 Oxygen Delivery Nasal Cannula Oxygen Flow Rate 3 11/25/24 08:08 11/25/24 08:08 11/25/24 08:22 Temperature Pulse Rate 67 67 68 Respiratory Rate 20 20 20 Blood Pressure Pulse Oximetry 91 Oxygen Delivery Nasal Cannula Oxygen Flow Rate 3 Intake/Output Intake/Output: Intake & Output 11/22/24 11/23/24 11/24/24 11/25/24 23:59 23:59 23:59 23:59 Intake Total 1150 1438 3140 1030 Output Total 1400 1875 1125 1500 [facility] [phone] -[facility] Meds/Results Medications: Active Medications Generic Name Dose Route Start Last Admin Trade Name Freq PRN Reason Stop Dose Admin Acetaminophen 650 mg 11/20/24 23:51 11/24/24 21:49 Acetaminophen 325 Mg Tablet PO 650 mg Q6H PRN Administration Mild Pain (1-3) or Fever Albuterol/Ipratropium 3 ml 11/20/24 21:55 11/25/24 08:08 Ipratropium 0.5 Mg/Albuterol Sulfate 2.5 Mg Ampul.Neb 3 Ml INHALATION 3 ml Q6HRT GIOVANNY Administration Aspirin 81 mg 11/21/24 12:23 11/25/24 09:26 Aspirin 81 Mg Enteric Tablet PO 81 mg DAILY GIOVANNY Administration Atorvastatin Calcium 80 mg 11/21/24 12:23 11/25/24 09:24 Atorvastatin 40 Mg Tablet PO 80 mg DAILY GIOVANNY Administration Azithromycin 500 mg 11/24/24 09:00 11/25/24 09:25 Azithromycin 250 Mg Tablet PO 11/27/24 09:01 500 mg DAILY GIOVANNY Administration Bupropion HCl 150 mg 11/21/24 21:00 11/25/24 09:24 Bupropion Hcl Sr (12 Hr) 150 Mg Tab PO 150 mg Q12HR GIOVANNY Administration Fenofibrate 160 mg 11/21/24 12:23 11/25/24 09:25 Fenofibrate 160 Mg Tablet PO 160 mg DAILY GIOVANNY Administration Finasteride 5 mg 11/21/24 12:23 11/25/24 09:26 Finasteride 5 Mg Tablet PO 5 mg DAILY GIOVANNY Administration Furosemide 60 mg 11/21/24 12:25 11/25/24 09:24 Furosemide 20 Mg Tablet PO 60 mg DAILY GIOVANNY Administration Guaifenesin 1,200 mg 11/21/24 09:00 11/25/24 09:25 Guaifenesin 12 Hr 600 Mg Tabcr PO 1,200 mg Q12HR GIOVANNY Administration Ceftriaxone Sodium 1 gm in 50 mls @ 100 mls/hr 11/23/24 09:00 11/25/24 09:26 Rocephin 1 Gm/Ns 50 Ml IVPB 100 mls/hr Q24H GIOVANNY Administration Lorazepam 0.5 mg 11/21/24 16:39 11/25/24 09:32 Lorazepam (*Crx) 0.5 Mg Tablet PO 0.5 mg BID PRN Administration anxiety Losartan Potassium 50 mg 11/21/24 12:25 11/25/24 09:24 Losartan Potassium 50 Mg Tablet PO 50 mg DAILY GIOVANNY Administration Metoprolol Succinate 50 mg 11/24/24 21:00 11/24/24 21:05 Metoprolol Succinate Ext Rel 50 Mg Tabcr PO 50 mg HS GIOVANNY Administration Morphine Sulfate 30 mg 11/21/24 12:25 11/25/24 09:25 Morphine Sulfate (*Crx) 30 Mg Tabcr PO 30 mg QAM GIOVANNY Administration Polyethylene Glycol 17 gm 11/23/24 10:15 11/25/24 09:26 Polyethylene Glycol 3350 17 Gm Powd.Pack PO 17 gm QAM GIOVANNY Administration Senna/Docusate Sodium 1 tab 11/22/24 21:00 11/24/24 21:02 Senna/Docusate Sodium Tablet PO 1 tab HS GIOVANNY Administration Sertraline HCl 50 mg 11/21/24 12:25 11/25/24 09:25 Sertraline Hcl 50 Mg Tablet PO 50 mg DAILY GIOVANNY Administration Tamsulosin HCl 0.4 mg 11/21/24 12:25 11/25/24 09:24 Tamsulosin Hcl 0.4 Mg Capsule PO 0.4 mg DAILY GIOVANNY Administration Trazodone HCl 100 mg 11/21/24 21:00 11/24/24 21:02 Trazodone Hcl 50 Mg Tablet PO 100 mg HS GIOVANNY Administration Radiology Results: ITS Impressions Chest CTA 11/20/24 19:21 IMPRESSION: No pulmonary embolus. No aneurysmal dilatation or dissection within the thoracic aorta. Small bilateral pleural effusions with adjacent compressive atelectasis. Venous Doppler Study 11/21/24 08:38 IMPRESSION: 1. No deep venous thrombosis. Chest X-Ray 11/22/24 16:06 Impression: 1: Progression of coarse interstitial infiltrates, compatible with combination o f chronic fibrosis and pneumonia. 2: Small right pleural effusion. Labs Labs: Laboratory Results - last 24 hr 11/24/24 11/25/24 05:35 07:22 WBC 6.6 RBC 3.11 L Hgb 9.5 L Hct 30.1 L MCV 96.8 MCH 30.5 MCHC 31.6 L RDW 13.9 Plt Count 283 MPV 10.5 H Immature Gran % (Auto) 0.9 H Neut % (Auto) 63.3 Lymph % (Auto) 19.1 Thurston % (Auto) 12.3 H Eos % (Auto) 3.9 Baso % (Auto) 0.5 Lymph # (Auto) 1.26 [place]ston # (Auto) 0.8 H Eos # (Auto) 0.3 Baso # (Auto) 0.0 Abs Immat Gran (auto) 0.06 H Absolute Neuts (auto) 4.2 Absolute Nucleated RBC 0.000 Nucleated RBC % 0.0 Sodium 136 L Potassium 4.3 Chloride 99 Carbon Dioxide 32 H Anion Gap 5 BUN 19 Creatinine 1.25 Estim Creat Clear Calc 45 Estimated GFR 56 L Glucose 98 Calcium 9.1 Magnesium 2.0 Iron 52 TIBC 296 % Saturation 18 L Ferritin 117.00 Total Bilirubin 0.4 AST 33 ALT 23 Alkaline Phosphatase 68 Total Protein 7.0 Albumin 3.5 Vitamin B12 439.0 Folate 8.1 Quality VTE Prophylaxis VTE prophylaxis: mechanical ordered
[2024-11-25] MEDS: BISACODYL 10 MG SUPPOSITORY RECTAL (12:42)
[2024-11-25 17:01] LABS: IFOB Positive Control Positive; Immunochemical Fecal Occult Bl Positive (N)
--- NOTE | 2024-11-25 17:23 | PM.PNCARD ---
Progress Note: A&P Assessment and Plan (1) Essential hypertension: Code(s): I10 - Essential (primary) hypertension Status: Acute (2) Congestive heart failure: Code(s): I50.9 - Heart failure, unspecified Status: Acute (3) Ventricular tachycardia: Code(s): I47.20 - Ventricular tachycardia, unspecified Status: Acute Plan 1. Stable CAD 2. Chronic systolic heart failure, compensated 3. Monomorphic VT 4. Chronic hypoxemic respiratory failure/COPD/I LD -echo shows EF 49%, grade 1 diastolic dysfunction -Continue metoprolol succinate, continue losartan 50 -consider adding Aldactone 12.5 mg for his blood pressure allows, as an outpatient -will consider SGOT 2 inhibitor as an outpatient -he has anemia which needs to be further investigated -continue aspirin 81 statin - Cardiology will sign off, please call me if there are any questions or concerns Subjective Date/time seen: 11/25/24 17:23 Interval history: No acute events overnight No more episodes of VT Review of Systems Review of Systems: 12 systems were reviewed and are negative except for as per HPI. All systems reviewed & are unremarkable except as noted in HPI and below Exam Narrative: AF HR 74 RR 20 SpO2 95 (3L NC baseline) BP 123/51 General: male in no acute respiratory distress who is nontoxic appearing, lying semi recumbent in bed. HEENT: Normocephalic. Atraumatic. Extraocular movement intact. Sclera clear and anicteric.No facial asymmetry. Chest: Lungs are clear in the uppers with rhonchi/crackles to auscultation bilaterally worse on the left than the right. No wheezes. CV: Heart was regular rate and rhythm. S1/S2. No murmurs, gallops, or rubs. Abd: Abdomen was soft. Nontender. Nondistended. Positive bowel sounds. No organomegaly or masses. Neuro: Patient is alert and oriented x4. Speech is clear. Const: General: comfortable, no acute distress and uncomfortable Eyes: Sclera: sclerae normal Resp: Effort & Inspection: normal respiratory effort Auscultation: wheezes expiratory wheezes and diminished lung sounds Other: slightly coarse Cardio: Rate: regular rate Rhythm: regular rhythm Other: Telemetry SR 75. GI: Auscultation: normal bowel sounds Skin: General skin exam: no rashes or lesions noted Neuro: Speech: normal speech Extrem: General: no pedal edema Psych: Mental Status: mental status grossly normal Affect: normal affect Objective Data Vital Signs Vital Signs: Vital Signs - 24 hr 11/24/24 20:00 11/24/24 21:05 11/24/24 21:16 Temperature Pulse Rate 67 70 74 Respiratory Rate 20 Blood Pressure Pulse Oximetry Oxygen Delivery Oxygen Flow Rate 11/24/24 21:18 11/24/24 21:29 11/24/24 21:56 Temperature 36.6 C Pulse Rate 73 77 Respiratory Rate 20 22 H Blood Pressure 139/59 L Pulse Oximetry 96 93 Oxygen Delivery Nasal Cannula Oxygen Flow Rate 3 11/25/24 00:00 11/25/24 01:56 11/25/24 02:08 Temperature Pulse Rate 55 L 61 65 Respiratory Rate 20 20 Blood Pressure Pulse Oximetry Oxygen Delivery Oxygen Flow Rate 11/25/24 04:00 11/25/24 06:00 11/25/24 08:00 Temperature 36.8 C Pulse Rate 51 L 56 L Respiratory Rate 20 Blood Pressure 120/52 L Pulse Oximetry 96 92 Oxygen Delivery Nasal Cannula Oxygen Flow Rate 3 11/25/24 08:03 11/25/24 08:08 11/25/24 08:08 Temperature Pulse Rate 61 67 67 Respiratory Rate 20 20 Blood Pressure Pulse Oximetry 91 Oxygen Delivery Nasal Cannula Oxygen Flow Rate 3 11/25/24 08:22 11/25/24 13:53 11/25/24 13:59 Temperature 36.6 C Pulse Rate 68 74 73 Respiratory Rate 20 20 20 Blood Pressure 101/44 L Pulse Oximetry 97 96 Oxygen Delivery Nasal Cannula Oxygen Flow Rate 3 11/25/24 14:01 11/25/24 14:12 Temperature Pulse Rate 73 87 Respiratory Rate 20 20 Blood Pressure Pulse Oximetry Oxygen Delivery Oxygen Flow Rate Intake/Output Intake/Output: Intake & Output 11/22/24 11/23/24 11/24/24 11/25/24 23:59 23:59 23:59 23:59 Intake Total 1150 1438 3140 1510 Output Total 1400 1875 1125 1999 Bdrvegd -148 -305 2015 -490 Meds/Results Medications: Active Medications Generic Name Dose Route Start Last Admin Trade Name Freq PRN Reason Stop Dose Admin Acetaminophen 650 mg 11/20/24 23:51 11/24/24 21:49 Acetaminophen 325 Mg Tablet PO 650 mg Q6H PRN Administration Mild Pain (1-3) or Fever Albuterol/Ipratropium 3 ml 11/20/24 21:55 11/25/24 13:58 Ipratropium 0.5 Mg/Albuterol Sulfate 2.5 Mg Ampul.Neb 3 Ml INHALATION 3 ml Q6HRT GIOVANNY Administration Aspirin 81 mg 11/21/24 12:23 11/25/24 09:26 Aspirin 81 Mg Enteric Tablet PO 81 mg DAILY GIOVANNY Administration Atorvastatin Calcium 80 mg 11/21/24 12:23 11/25/24 09:24 Atorvastatin 40 Mg Tablet PO 80 mg DAILY GIOVANNY Administration Azithromycin 500 mg 11/24/24 09:00 11/25/24 09:25 Azithromycin 250 Mg Tablet PO 11/27/24 09:01 500 mg DAILY GIOVANNY Administration Bupropion HCl 150 mg 11/21/24 21:00 11/25/24 09:24 Bupropion Hcl Sr (12 Hr) 150 Mg Tab PO 150 mg Q12HR GIOVANNY Administration Fenofibrate 160 mg 11/21/24 12:23 11/25/24 09:25 Fenofibrate 160 Mg Tablet PO 160 mg DAILY GIOVANNY Administration Finasteride 5 mg 11/21/24 12:23 11/25/24 09:26 Finasteride 5 Mg Tablet PO 5 mg DAILY GIOVANNY Administration Furosemide 60 mg 11/21/24 12:25 11/25/24 09:24 Furosemide 20 Mg Tablet PO 60 mg DAILY GIOVANNY Administration Guaifenesin 1,200 mg 11/21/24 09:00 11/25/24 09:25 Guaifenesin 12 Hr 600 Mg Tabcr PO 1,200 mg Q12HR GIOVANNY Administration Ceftriaxone Sodium 1 gm in 50 mls @ 100 mls/hr 11/23/24 09:00 11/25/24 09:26 Rocephin 1 Gm/Ns 50 Ml IVPB 100 mls/hr Q24H GIOVANNY Administration Lorazepam 0.5 mg 11/21/24 16:39 11/25/24 09:32 Lorazepam (*Crx) 0.5 Mg Tablet PO 0.5 mg BID PRN Administration anxiety Losartan Potassium 50 mg 11/21/24 12:25 11/25/24 09:24 Losartan Potassium 50 Mg Tablet PO 50 mg DAILY GIOVANNY Administration Metoprolol Succinate 50 mg 11/24/24 21:00 11/24/24 21:05 Metoprolol Succinate Ext Rel 50 Mg Tabcr PO 50 mg HS GIOVANNY Administration Morphine Sulfate 30 mg 11/21/24 12:25 11/25/24 09:25 Morphine Sulfate (*Crx) 30 Mg Tabcr PO 30 mg QAM GIOVANNY Administration Polyethylene Glycol 17 gm 11/23/24 10:15 11/25/24 09:26 Polyethylene Glycol 3350 17 Gm Powd.Pack PO 17 gm QAM GIOVANNY Administration Senna/Docusate Sodium 1 tab 11/22/24 21:00 11/24/24 21:02 Senna/Docusate Sodium Tablet PO 1 tab HS GIOVANNY Administration Sertraline HCl 50 mg 11/21/24 12:25 11/25/24 09:25 Sertraline Hcl 50 Mg Tablet PO 50 mg DAILY GIOVANNY Administration Tamsulosin HCl 0.4 mg 11/21/24 12:25 11/25/24 09:24 Tamsulosin Hcl 0.4 Mg Capsule PO 0.4 mg DAILY GIOVANNY Administration Trazodone HCl 100 mg 11/21/24 21:00 11/24/24 21:02 Trazodone Hcl 50 Mg Tablet PO 100 mg HS GIOVANNY Administration Radiology Results: ITS Impressions Chest CTA 11/20/24 19:21 IMPRESSION: No pulmonary embolus. No aneurysmal dilatation or dissection within the thoracic aorta. Small bilateral pleural effusions with adjacent compressive atelectasis. Venous Doppler Study 11/21/24 08:38 IMPRESSION: 1. No deep venous thrombosis. 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 2: Small right pleural effusion. Labs Labs: Laboratory Results - last 24 hr 11/24/24 11/25/24 11/25/24 05:35 07:22 16:37 WBC 6.6 RBC 3.11 L Hgb 9.5 L Hct 30.1 L MCV 96.8 MCH 30.5 MCHC 31.6 L RDW 13.9 Plt Count 283 MPV 10.5 H Immature Gran % (Auto) 0.9 H Neut % (Auto) 63.3 Lymph % (Auto) 19.1 [place]ts % (Auto) 12.3 H Eos % (Auto) 3.9 Baso % (Auto) 0.5 Lymph # (Auto) 1.26 [place]ts # (Auto) 0.8 H Eos # (Auto) 0.3 Baso # (Auto) 0.0 Abs Immat Gran (auto) 0.06 H Absolute Neuts (auto) 4.2 Absolute Nucleated RBC 0.000 Nucleated RBC % 0.0 Sodium 136 L Potassium 4.3 Chloride 99 Carbon Dioxide 32 H Anion Gap 5 BUN 19 Creatinine 1.25 Estim Creat Clear Calc 45 Estimated GFR 56 L Glucose 98 Calcium 9.1 Magnesium 2.0 Iron 52 TIBC 296 % Saturation 18 L Ferritin 117.00 Total Bilirubin 0.4 AST 33 ALT 23 Alkaline Phosphatase 68 Total Protein 7.0 Albumin 3.5 Vitamin B12 439.0 Folate 8.1 Stl Occult Blood (IFOB) Positive H
[2024-11-25] MEDS: traZODone HCL 50 MG TABLET 100 MG PO (22:08)
[2024-11-25] MEDS: METOPROLOL SUCCINATE EXT REL 50 MG TABCR PO (22:08)
[2024-11-25] MEDS: SENNA/DOCUSATE SODIUM TABLET 1 TAB PO (22:09)
[2024-11-26] VITALS (16 sets, daily range): BP systolic 100–130; BP diastolic 45–71; PULSE 58–74; RESP 16–20; TEMP 36.2–36.7; O2SAT 88–96
[2024-11-26 07:53] LABS: Basophils Percent Auto 0.3 % (0.2-1.2); Eosinophils Absolute Auto 0.2 K/mm3 (0-0.3); Hematocrit 30.3 % (42.0-52.0); Hemoglobin 9.6 g/dL (14.0-18.0); Immature Granulocyte Absolute 0.08 K/mm3 (0.00-0.031); Immature Granulocyte Percent A 1.3 % (0-0.5); Lymphocytes Absolute Auto 1.02 K/mm3 (0.9-3.2); Lymphocytes Percent Auto 16.9 % (18.3-44.2); Mean Corpuscular HGB Conc 31.7 g/dl (32-36); Mean Corpuscular Hemoglobin 31.1 pg (26-34); Mean Corpuscular Volume 98.1 fl (80-100); Mean Platelet Volume 10.8 fl (7.4-10.4); Monocytes Absolute Auto 0.7 K/mm3 (0.1-0.6); Monocytes Percent Auto 11.8 % (2.6-8.5); Neutrophils Percent Auto 65.7 % (45.5-73.1); Platelet Count Result 287 k/mm3 (150-375); Red Blood Count 3.09 M/mm3 (4.6-6.20)
[2024-11-26] MEDS: IPRATROPIUM 0.5 MG/ALBUTEROL SULFATE 2.5 MG AMPUL.NEB 3 ML INHALATION ×3 (07:54→20:34)
[2024-11-26 08:02] LABS: Alanine Aminotransferase 20 U/L (6-50); Albumin Level 3.5 g/dL (3.5-5.1); Alkaline Phosphatase 69 U/L (38-126); Anion Gap -1 mmol/L (4-12); Aspartate Amino Transferase 28 U/L (17-59); Bilirubin,Total 0.6 mg/dL (0.2-1.3); Blood Urea Nitrogen 23 mg/dL (9-20); Calcium 9.1 mg/dL (8.4-10.2); Carbon Dioxide 36 mmol/L (22-30); Chloride 102 mmol/L (98-107); Estimated CRCL calculation 40 ml/min; Estimated Glomerular Filt Rate 49; Glucose 97 mg/dL (65-110); Magnesium 2.2 mg/dL (1.6-2.3); Potassium 4.2 mmol/L (3.4-5.0); Sodium 137 mmol/L (137-145)
[2024-11-26] MEDS: LORazepam (*CRX) 0.5 MG TABLET PO ×2 (08:36→20:37)
[2024-11-26] MEDS: SERTRALINE HCL 50 MG TABLET PO (08:37)
[2024-11-26] MEDS: ATORVASTATIN 40 MG TABLET 80 MG PO (08:37)
[2024-11-26] MEDS: guaiFENesin 12 HR 600 MG TABCR 1200 MG PO ×2 (08:37→20:37)
[2024-11-26] MEDS: FENOFIBRATE 160 MG TABLET PO (08:38)
[2024-11-26] MEDS: buPROPion HCL SR (12 HR) 150 MG TAB PO ×2 (08:38→20:37)
[2024-11-26] MEDS: LOSARTAN POTASSIUM 50 MG TABLET PO (08:38)
[2024-11-26] MEDS: ASPIRIN 81 MG ENTERIC TABLET PO (08:38)
[2024-11-26] MEDS: TAMSULOSIN HCL 0.4 MG CAPSULE PO (08:38)
[2024-11-26] MEDS: FUROSEMIDE 20 MG TABLET 60 MG PO (08:38)
[2024-11-26] MEDS: FINASTERIDE 5 MG TABLET PO (08:38)
[2024-11-26] MEDS: AZITHROMYCIN 250 MG TABLET 500 MG PO (08:38)
[2024-11-26] MEDS: MORPHINE SULFATE (*CRX) 30 MG TABCR PO (08:38)
--- NOTE | 2024-11-26 12:54 | P.PNIM_ITS ---
Progress Note: A&P Assessment and Plan (1) Chronic hypoxic respiratory failure, on home oxygen therapy: Code(s): J96.11 - Chronic respiratory failure with hypoxia; Z99.81 - Dependence on supplemental oxygen Status: Acute Assessment and Plan: -Chronic, back on baseline 3L NC. (2) Pleural effusion: Code(s): J90 - Pleural effusion, not elsewhere classified Status: Inactive Assessment and Plan: - CXR: Chronic bibasilar interstitial disease with a moderate right-sided pleural effusion - Chest CTA No pulmonary embolus. No aneurysmal dilatation or dissection within the thoracic aorta. Small bilateral pleural effusions with adjacent compressive atelectasis. - Venous doppler: No DVT - Echo obtained: Summary 1. Left ventricular chamber dimension is normal. 2. There is mildly increased left ventricular wall thickness. 3. Left ventricular systolic function is mildly reduced with an ejection fraction by Biplane Method of Discs of 49 %. 4. Left ventricular wall motion shows inf hypokinesis. 5. The left ventricular diastolic function is grade I diastolic dysfunction. 6. Right ventricular chamber dimension is normal. 7. Right ventricular systolic function is normal. 8. There is no aortic valve stenosis. 9. There is no mitral valve regurgitation. 10. There is no tricuspid valve regurgitation. - Repeat CXR showed: Impression: 1: Progression of coarse interstitial infiltrates, compatible with combination of chronic fibrosis and pneumonia. 2: Small right pleural effusion. - Complicating Factors: COPD with chronic oxygen supplementation (3L NC) - Viral PCR: negative for Flu/COVID/RSV - Right-sided pleural effusion was noted to be moderate in size on chest x-ray though does not appear significant enough to drain. - Does not appear volume overloaded thus will stop IV diuretics and resume his home lasix 60 daily as prescribed - Continue scheduled bronchodilators. Encourage incentive spirometry. - Cornet and Mucinex ordered to help mobilize secretions as he does have quite a bit of rhonchi in the right upper lobe. - Monitor vital signs, I&Os, neuro status and patient is a fall risk - Follow WBC, serum electrolytes, temperature curves and cultures (3) Chronic obstructive pulmonary disease: Code(s): J44.9 - Chronic obstructive pulmonary disease, unspecified Status: Acute Assessment and Plan: Chronic, does not appear to be in acute exacerbation given no wheezing heard on exam. - monitor (4) Pneumonia: Code(s): J18.9 - Pneumonia, unspecified organism Status: Acute Assessment and Plan: - Chest X-ray: Impression: 1: Progression of coarse interstitial infiltrates, compatible with combination of chronic fibrosis and pneumonia. 2: Small right pleural effusion. - Started on Azithromycin 500 mg PO daily and Ceftriaxone 1 gram IVPB daily. - Duonebs q 6. (5) Congestive heart failure: Code(s): I50.9 - Heart failure, unspecified Status: Acute Assessment and Plan: chronic, continue home medications - echo obtained, pending read (6) Chronic kidney disease, stage 3: Code(s): N18.30 - Chronic kidney disease, stage 3 unspecified Status: Acute Assessment and Plan: BUN/Cr 31/1.5 on admission, appears around baseline. - BUN/Cr 23/1.40 on am labs - Renally dose medications - Avoid nephrotoxic medications - Monitor I/O (7) SVT (supraventricular tachycardia): Code(s): I47.10 - Supraventricular tachycardia, unspecified Status: Acute Assessment and Plan: * Patient had 27 beat run of SVT over night on 11/23/24, along with a short run per nocturnal GREG. Patient was asymptomatic. * Patient magnesium 1.8, patient received a Magnesium Sulfate 2 gm IVPB x1. Repeat magnesium 2.4. Magnesium 2.2 today. * Potassium 3.5. Patient received Potassium Chloride 40 meq PO x1. Repeat potassium 4.2. Potassium today was 4.2. * Cardiology consult, appreciate recommendations. -echo shows EF 49%, grade 1 diastolic dysfunction -switched carvedilol to metoprolol succinate -continue losartan 50 -consider adding Aldactone 12.5 mg for his blood pressure allows -will consider SGOT 2 inhibitor as an outpatient -he has anemia which needs to be further investigated -continue aspirin 81 statin (8) Essential hypertension: Code(s): I10 - Essential (primary) hypertension Status: Acute Assessment and Plan: Chronic, continue home medications - Metoprolol Succinate 50 mg PO at bedtime. - lasix 60 mg daily - losartan 50 mg daily - blood pressure has been stable, continue to monitor (9) Spinal stenosis, lumbar region without neurogenic claudication: Code(s): M48.061 - Spinal stenosis, lumbar region without neurogenic claudication Status: Acute Assessment and Plan: * Morphine 30 mg PO daily and Acetaminophen 650 mg PO q 6 PRN. (10) Constipation: Code(s): K59.00 - Constipation, unspecified Status: Acute Assessment and Plan: * Docusate sodium/ Senna tab 1 tablet oral HS and Miralax 17 gram PO daily. * Add Bisacodyl suppository 10 mg TN x 1. 2 BM's on 11/25/24. * Encourage water intake. (11) Occult gastrointestinal hemorrhage: Code(s): R19.5 - Other fecal abnormalities Status: Acute Assessment and Plan: * Stool positive occult blood on 11/25/24. Patient constipated prior to bowel movement. * GI consulted. * Plan upper and lower scopes in 5 weeks per patient. * H&H 9.6/30.3. * Monitor labs. Subjective Date/time seen: 11/26/24 12:54 Interval history: Patient sitting up on side of bed. Patient denies chest pain, palpitations, shortness of breath, headache, dizziness, nausea, or vomiting. Review of Systems Review of Systems: All systems reviewed & are unremarkable except as noted in HPI and below Exam Const: General: comfortable and no acute distress Eyes: Sclera: sclerae normal Resp: Effort & Inspection: normal respiratory effort Auscultation: diminished lung sounds Cardio: Rate: regular rate Rhythm: regular rhythm Other: Telemetry- SR 67 GI: GI Palp: Yes Soft to palpation Auscultation: normal bowel sounds Skin: General skin exam: no rashes or lesions noted Neuro: Speech: normal speech Extrem: General: no pedal edema Psych: Mental Status: mental status grossly normal Affect: normal affect Objective Data Vital Signs Vital Signs: Vital Signs - 24 hr 11/25/24 13:53 11/25/24 13:59 11/25/24 14:01 Temperature 97.9 F Pulse Rate 74 73 73 Respiratory Rate 20 20 20 Blood Pressure 101/44 L Pulse Oximetry 97 96 Oxygen Delivery Nasal Cannula Oxygen Flow Rate 3 Fraction of Inspired Oxygen 11/25/24 14:12 11/25/24 16:03 11/25/24 20:00 Temperature Pulse Rate 87 69 Respiratory Rate 20 Blood Pressure Pulse Oximetry 95 Oxygen Delivery Nasal Cannula Oxygen Flow Rate 3 Fraction of Inspired Oxygen 11/25/24 20:00 11/25/24 21:23 11/25/24 21:47 Temperature 97.8 F Pulse Rate 65 64 84 Respiratory Rate 18 20 Blood Pressure 99/54 L Pulse Oximetry 95 Oxygen Delivery Oxygen Flow Rate Fraction of Inspired Oxygen 11/25/24 21:48 11/26/24 00:00 11/26/24 04:00 Temperature Pulse Rate 60 58 L Respiratory Rate 20 Blood Pressure Pulse Oximetry 94 Oxygen Delivery Nasal Cannula Oxygen Flow Rate 3 Fraction of Inspired Oxygen 11/26/24 06:00 11/26/24 07:54 11/26/24 07:54 Temperature 97.2 F L Pulse Rate 74 65 Respiratory Rate 18 20 Blood Pressure 115/48 L Pulse Oximetry 94 95 Oxygen Delivery Nasal Cannula Oxygen Flow Rate 3 Fraction of Inspired Oxygen 32 11/26/24 08:02 11/26/24 08:06 Temperature Pulse Rate 62 68 Respiratory Rate 20 Blood Pressure Pulse Oximetry Oxygen Delivery Oxygen Flow Rate Fraction of Inspired Oxygen Intake/Output Intake/Output: Intake & Output 11/23/24 11/24/24 11/25/24 11/26/24 23:59 23:59 23:59 23:59 Intake Total 1438 3140 2040 670 Output Total 1875 1125 1999 1185 [facility] -[address] [facility] 75 -755 Meds/Results Medications: Active Medications Generic Name Dose Route Start Last Admin Trade Name Freq PRN Reason Stop Dose Admin Acetaminophen 650 mg 11/20/24 23:51 11/24/24 21:49 Acetaminophen 325 Mg Tablet PO 650 mg Q6H PRN Administration Mild Pain (1-3) or Fever Albuterol/Ipratropium 3 ml 11/20/24 21:55 11/26/24 07:54 Ipratropium 0.5 Mg/Albuterol Sulfate 2.5 Mg Ampul.Neb 3 Ml INHALATION 3 ml Q6HRT GIOVANNY Administration Aspirin 81 mg 11/21/24 12:23 11/26/24 08:38 Aspirin 81 Mg Enteric Tablet PO 81 mg DAILY GIOVANNY Administration Atorvastatin Calcium 80 mg 11/21/24 12:23 11/26/24 08:37 Atorvastatin 40 Mg Tablet PO 80 mg DAILY GIOVANNY Administration Azithromycin 500 mg 11/24/24 09:00 11/26/24 08:38 Azithromycin 250 Mg Tablet PO 11/27/24 09:01 500 mg DAILY GIOVANNY Administration Bupropion HCl 150 mg 11/21/24 21:00 11/26/24 08:38 Bupropion Hcl Sr (12 Hr) 150 Mg Tab PO 150 mg Q12HR GIOVANNY Administration Fenofibrate 160 mg 11/21/24 12:23 11/26/24 08:38 Fenofibrate 160 Mg Tablet PO 160 mg DAILY GIOVANNY Administration Finasteride 5 mg 11/21/24 12:23 11/26/24 08:38 Finasteride 5 Mg Tablet PO 5 mg DAILY GIOVANNY Administration Furosemide 60 mg 11/21/24 12:25 11/26/24 08:38 Furosemide 20 Mg Tablet PO 60 mg DAILY GIOVANNY Administration Guaifenesin 1,200 mg 11/21/24 09:00 11/26/24 08:37 Guaifenesin 12 Hr 600 Mg Tabcr PO 1,200 mg Q12HR GIOVANNY Administration Ceftriaxone Sodium 1 gm in 50 mls @ 100 mls/hr 11/23/24 09:00 11/26/24 08:47 Rocephin 1 Gm/Ns 50 Ml IVPB 100 mls/hr Q24H GIOVANNY Administration Lorazepam 0.5 mg 11/21/24 16:39 11/26/24 08:36 Lorazepam (*Crx) 0.5 Mg Tablet PO 0.5 mg BID PRN Administration anxiety Losartan Potassium 50 mg 11/21/24 12:25 11/26/24 08:38 Losartan Potassium 50 Mg Tablet PO 50 mg DAILY GIOVANNY Administration Metoprolol Succinate 50 mg 11/24/24 21:00 11/25/24 22:08 Metoprolol Succinate Ext Rel 50 Mg Tabcr PO 50 mg HS GIOVANNY Administration Morphine Sulfate 30 mg 11/21/24 12:25 11/26/24 08:38 Morphine Sulfate (*Crx) 30 Mg Tabcr PO 30 mg QAM GIOVANNY Administration Polyethylene Glycol 17 gm 11/23/24 10:15 11/25/24 09:26 Polyethylene Glycol 3350 17 Gm Powd.Pack PO 17 gm QAM GIOVANNY Administration Senna/Docusate Sodium 1 tab 11/22/24 21:00 11/25/24 22:09 Senna/Docusate Sodium Tablet PO 1 tab HS GIOVANNY Administration Sertraline HCl 50 mg 11/21/24 12:25 11/26/24 08:37 Sertraline Hcl 50 Mg Tablet PO 50 mg DAILY GIOVANNY Administration Tamsulosin HCl 0.4 mg 11/21/24 12:25 11/26/24 08:38 Tamsulosin Hcl 0.4 Mg Capsule PO 0.4 mg DAILY GIOVANNY Administration Trazodone HCl 100 mg 11/21/24 21:00 11/25/24 22:08 Trazodone Hcl 50 Mg Tablet PO 100 mg HS GIOVANNY Administration Radiology Results: ITS Impressions Chest CTA 11/20/24 19:21 IMPRESSION: No pulmonary embolus. No aneurysmal dilatation or dissection within the thoracic aorta. Small bilateral pleural effusions with adjacent compressive atelectasis. Venous Doppler Study 11/21/24 08:38 IMPRESSION: 1. No deep venous thrombosis. 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 2: Small right pleural effusion. Labs Labs: Laboratory Results - last 24 hr 11/25/24 11/26/24 16:37 07:02 WBC 6.0 RBC 3.09 L Hgb 9.6 L Hct 30.3 L MCV 98.1 MCH 31.1 MCHC 31.7 L RDW 14.0 Plt Count 287 MPV 10.8 H Immature Gran % (Auto) 1.3 H Neut % (Auto) 65.7 Lymph % (Auto) 16.9 L [place] % (Auto) 11.8 H Eos % (Auto) 4.0 Baso % (Auto) 0.3 Lymph # (Auto) 1.02 [place] # (Auto) 0.7 H Eos # (Auto) 0.2 Baso # (Auto) 0.0 Abs Immat Gran (auto) 0.08 H Absolute Neuts (auto) 4.0 Absolute Nucleated RBC 0.000 Nucleated RBC % 0.0 Sodium 137 Potassium 4.2 Chloride 102 Carbon Dioxide 36 H Anion Gap -1 L BUN 23 H Creatinine 1.40 H Estim Creat Clear Calc 40 Estimated GFR 49 L Glucose 97 Calcium 9.1 Magnesium 2.2 Total Bilirubin 0.6 AST 28 ALT 20 Alkaline Phosphatase 69 Total Protein 7.0 Albumin 3.5 Stl Occult Blood (IFOB) Positive H Quality VTE Prophylaxis VTE prophylaxis: mechanical ordered
--- NOTE | 2024-11-26 14:13 | P.CONGI_ITS ---
Assessment and Plan Assessment and plan (1) Congestive heart failure: Code(s): I50.9 - Heart failure, unspecified Status: Acute (2) Pleural effusion on right: Code(s): J90 - Pleural effusion, not elsewhere classified Status: Acute (3) Shortness of breath: Code(s): R06.02 - Shortness of breath Status: Acute (4) Occult gastrointestinal hemorrhage: Code(s): R19.5 - Other fecal abnormalities Status: Acute Plan patient currently admitted to the hospital with congestive heart failure shortness of breath and found to be anemic patient does have a strong family history of colon cancer his last colonoscopy was around 5 years ago. Patient has not seen any GI bleeding which is aware of. At this time continue with the conservative management advised the patient that once his breathing is better patient can follow up as outpatient for upper endoscopy and colonoscopy. Necessity of these tests have been discussed with the patient but at this point with the breathing problems and endoscopy evaluation is not emergent and patient can follow-up in couple of weeks as outpatient to get those procedures done please call me with any questions thanks GI Consult Note Consult date/time: 11/26/24 14:13 Reason for consult: anemia heme-positive stool strong family history of colon cancer congestive heart failure pneumonia/shortness of breath HPI: Russell Morse is a 79 year old male admitted to the hospital with respiratory failure, pleural effusion, congestive heart failure pneumonia and shortness of breath currently being managed for congestive heart failure. Patient was found to be anemic with hemoglobin of 9.6 the patient had a stool occult test that came out to be positive patient states that he has strong family history of colon cancer according to Ms. Last colonoscopy was around 5 years ago patient denies any seeing any blood in the stool denies any black stool denies any red blood in the stool. Denies any nausea vomiting according to me does not have any GI symptoms at all Review of Systems 2 Constitutional: Constitutional: Denies chills, Denies fatigue, Denies fever(s), Denies headache(s), Denies malaise, Denies weight gain and Denies weight loss Eyes: Eyes: Denies change in vision ENT: Denies dizziness, Denies headache(s) and Reports other (No change in hearing) Cardiovascular: Cardiovascular: Denies chest pain, Denies dyspnea and Reports other (denies palpitations, denies orthopnea) Respiratory: Respiratory: Denies cough, Denies dyspnea and Reports other (denies sputum production, denies hemoptysis) Gastrointestinal: Gastrointestinal: Reports as per HPI Genitourinary: Genitourinary: Denies hematuria, Denies dysuria and Denies urinary incontinence Musculoskeletal: Musculoskeletal: Reports other (denies extremity edema, denies myalgia) Integumentary/Breasts: Skin/Breast: Denies new lesions and Denies rash Neurologic: Denies dizziness, Denies headache(s) and Denies seizure-like activity Endocrine: Endocrine: Denies fatigue Hematologic/Lymphatic: Hematologic/Lymphatic: Denies easy bleeding and Denies easy bruising [facility] Past Medical History Medical History (Updated 11/26/24 @ 14:15 by Pedrito Alvarez MD) Congestive heart failure Colon polyps Chronic obstructive pulmonary disease Gastroesophageal reflux disease Osteoarthritis Chronic kidney disease, stage 3 Benign prostatic hyperplasia Cancer of lower jaw bone (1986) Vitamin D deficiency Essential hypertension Depression Chronic hypoxic respiratory failure, on home oxygen therapy Erythema multiforme Essential tremor Hyperlipidemia 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 History of tobacco use Polio (1951) Other chronic pain Aortic stenosis Mild - Echo 05/15/2022 NSTEMI (non-ST elevated myocardial infarction) (08/2019) Normal colonoscopy (04/2015) Ischemic cardiomyopathy Echocardiogram 09/2021: Mildly reduced left ventricular systolic function EF of 45-50%, grade 1 diastolic dysfunction, inferior wall inferior septal wall basal inferior wall and mid inferior lateral wall hypokinesis with mild left atrial and large Atherosclerotic heart disease of [place] coronary artery without angina pectoris Abdominal aortic aneurysm, without rupture 02/07 CT Restless legs syndrome Spinal stenosis, lumbar region without neurogenic claudication Surgical History Surgical History History of tonsillectomy and adenoidectomy History of repair of rotator cuff bilateral History of colonoscopy with polypectomy History of bowel resection due to obstruction Presence of coronary angioplasty implant and graft History of coronary artery stent placement X2 History of mandibular surgery (1986) reconstructive surgery right mandible related to cancer Family History Family History Mother Diabetes mellitus Acute myocardial infarction Father Colon cancer COPD (chronic obstructive pulmonary disease) Sibling Colon cancer Acute myocardial infarction Lung cancer COPD (chronic obstructive pulmonary disease) Sibling COPD (chronic obstructive pulmonary disease) Sibling Congestive heart failure Sibling Dementia Social History Social History Social History: Surrogate medical decision maker: Code status: Modified code, no intubation. Smoking packs per day: 2 Smoking cigarettes per day: 40.0 Years smoked: 40 Smoking pack-years: 80.00 Smoking status: Former smoker Second hand tobacco smoke exposure: No Alcohol intake: former Substance use: never Substance use type: does not use Other substance usage details: quit alcohol in 2010 Last use: Last alcohol use 2010 Do You Feel Safe in your Home?: Yes Lack of Transportation: No Lack of Food: Never True Current Housing: I Have Housing Concerned About Future Housing: No Difficulty Paying Gas/Electric Bills: No Difficulty Paying for Meds: No Currently Unemployed: No Education: Decline to Answer Difficulty w/ Childcare or Family Care: No Living arrangements: with family Additional living arrangements comments: . Lives in [place] with son and [id number]. 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: retired Additional occupation/education comments: [employer] Spiritual care concerns: No Agree to blood products: Yes Meds Home Medications and Allergies Home Medications ?Medication ?Instructions ?Recorded ?Confirmed ?Type acetaminophen 500 mg tablet 500 mg PO Q6H PRN Pain 03/18/23 11/21/24 History (Tylenol Extra Strength) finasteride 5 mg tablet (Proscar) 5 mg PO DAILY 03/18/23 11/21/24 History multivitamin 1 tablet PO DAILY 03/18/23 11/21/24 History nitroglycerin 0.3 mg sublingual 0.3 mg sublingual Q5M PRN Chest 03/18/23 11/21/24 History tablet Pain cetirizine 10 mg capsule (Zyrtec) 10 mg PO DAILY PRN allergies 06/13/23 11/21/24 History aspirin 81 mg tablet,delayed 81 mg PO DAILY #90 tabs 06/15/23 11/21/24 Rx release polyethylene glycol 3350 17 gram 17 g PO QAM PRN Constipation #30 ea 06/15/23 11/21/24 Rx oral powder packet (Miralax) fenofibrate 160 mg tablet 160 mg PO DAILY #90 tabs 09/16/23 11/21/24 Rx losartan 50 mg tablet 50 mg PO DAILY #90 tabs 02/24/24 11/21/24 Rx carvedilol 12.5 mg tablet 12.5 mg PO BID 02/25/24 11/21/24 History nebulizer accessories #1 ea 04/12/24 11/21/24 Rx nebulizer and compressor #1 ea 04/12/24 11/21/24 Rx ipratropium 0.5 mg-albuterol 3 mg 3 ml inhalation Q8H PRN shortness 04/19/24 11/21/24 Rx (2.5 mg base)/3 mL nebulization of breath or wheezing #180 mL soln sulindac 200 mg tablet 200 mg PO BID #180 tabs 04/27/24 11/21/24 Rx esomeprazole magnesium 20 mg See Rx Instructions .Route 04/28/24 11/21/24 Rx capsule,delayed release .COMPLEX #90 caps linaclotide 290 mcg capsule See Rx Instructions .Route 04/28/24 11/21/24 Rx (Linzess) .COMPLEX #90 caps sertraline 50 mg tablet 50 mg PO DAILY #90 tabs 07/18/24 11/21/24 Rx budesonide 160 mcg-glycopyr 9 See Rx Instructions .Route 07/27/24 11/21/24 Rx mcg-formot 4.8 mcg/actuation HFA .COMPLEX #10.7 grams inhaler (Breztri Aerosphere) trazodone 100 mg tablet 100 mg PO HS Insomnia #90 tabs 08/07/24 11/21/24 Rx guaifenesin 1,200 mg tablet, 1,200 mg PO BID PRN cough 08/11/24 11/21/24 History extended release 12 hr (Mucinex) etodolac 500 mg tablet 500 mg PO BID #60 tabs 09/20/24 11/21/24 Rx bupropion HCl 150 mg tablet,12 hr 150 mg PO BID #180 tabs 09/22/24 11/21/24 Rx sustained-release albuterol sulfate 90 mcg/actuation 2 puff inhalation Q4H PRN 10/03/24 11/21/24 Rx aerosol inhaler Shortness Of Breath Or Wheezing #8.5 grams tamsulosin 0.4 mg capsule 0.4 mg PO DAILY #90 caps 10/12/24 11/21/24 Rx atorvastatin 80 mg tablet 80 mg PO DAILY #90 tabs 10/26/24 11/21/24 Rx morphine 30 mg tablet,extended 30 mg PO QAM #30 tabs 10/26/24 11/21/24 Rx release lorazepam 0.5 mg tablet 0.5 mg PO BID PRN anxiety #40 tabs 11/02/24 11/21/24 Rx furosemide 40 mg tablet 60 mg PO DAILY 11/04/24 11/21/24 History Saccharomyces boulardii 250 mg 250 mg PO TID #30 caps 11/06/24 11/21/24 Rx capsule (Florastor) simethicone 125 mg capsule (Gas-X 125 mg PO PRN 11/21/24 11/21/24 History Extra Strength) Allergies Allergy/AdvReac Type Severity Reaction Status Date / Time clonazepam AdvReac Severe Drowsy Verified 11/21/24 07:47 roflumilast (From Daliresp) AdvReac Severe Diarrhea Verified 11/21/24 07:47 Vital Signs Vital Signs - 24 hr 11/25/24 16:03 11/25/24 20:00 11/25/24 20:00 Temperature Pulse Rate 69 65 Respiratory Rate Blood Pressure Pulse Oximetry 95 Oxygen Delivery Nasal Cannula Oxygen Flow Rate 3 Fraction of Inspired Oxygen 11/25/24 21:23 11/25/24 21:47 11/25/24 21:48 Temperature 97.8 F Pulse Rate 64 84 Respiratory Rate 18 20 20 Blood Pressure 99/54 L Pulse Oximetry 95 94 Oxygen Delivery Nasal Cannula Oxygen Flow Rate 3 Fraction of Inspired Oxygen 11/26/24 00:00 11/26/24 04:00 11/26/24 06:00 Temperature 97.2 F L Pulse Rate 60 58 L 74 Respiratory Rate 18 Blood Pressure 115/48 L Pulse Oximetry 94 Oxygen Delivery Oxygen Flow Rate Fraction of Inspired Oxygen 11/26/24 07:54 11/26/24 07:54 11/26/24 08:02 Temperature Pulse Rate 65 62 Respiratory Rate 20 Blood Pressure Pulse Oximetry 95 Oxygen Delivery Nasal Cannula Oxygen Flow Rate 3 Fraction of Inspired Oxygen 32 11/26/24 08:06 11/26/24 08:40 11/26/24 08:40 Temperature Pulse Rate 68 67 Respiratory Rate 20 Blood Pressure 130/57 L Pulse Oximetry 96 96 Oxygen Delivery Nasal Cannula Oxygen Flow Rate 3 Fraction of Inspired Oxygen 11/26/24 13:42 11/26/24 13:42 11/26/24 13:50 Temperature Pulse Rate 66 68 Respiratory Rate 20 20 Blood Pressure Pulse Oximetry 96 Oxygen Delivery Nasal Cannula Oxygen Flow Rate 3 Fraction of Inspired Oxygen 32 Exam 2 Const: General: cooperative; No acute distress Orientation/consciousness: p atient oriented x3 HENMT: Head: normal to inspection Neck: Neck: supple Resp: Auscultation: clear to auscultation bilaterally Cardio: Rate: regular rate Rhythm: regular rhythm GI: Inspection: non-distended GI Palp: Yes Soft to palpation, No Tenderness to palpation present (GI) and No Palpable mass present Auscultation: normal bowel sounds Rectal Exam: deferred Skin: General skin exam: no rashes or lesions noted Neuro: General: patient oriented x3 Extrem: General: no edema Results Labs 11/26/24 07:02 11/26/24 07:02 Labs: Short CBC 11/26/24 Range/Units 07:02 WBC 6.0 (4.5-10.0) K/mm3 Hgb 9.6 L (14.0-18.0) g/dL Hct 30.3 L (42.0-52.0) % Plt Count 287 (150-375) k/mm3 [facility] 11/26/24 07:02 Sodium 137 Potassium 4.2 Chloride 102 Carbon Dioxide 36 H BUN 23 H Creatinine 1.40 H Glucose 97 Calcium 9.1 Liver Function 11/26/24 Range/Units 07:02 Total Bilirubin 0.6 (0.2-1.3) mg/dL AST 28 (17-59) U/L ALT 20 (6-50) U/L Alkaline Phosphatase 69 (38-126) U/L Albumin 3.5 (3.5-5.1) g/dL
[2024-11-26] MEDS: traZODone HCL 50 MG TABLET 100 MG PO (20:37)
[2024-11-26] MEDS: METOPROLOL SUCCINATE EXT REL 50 MG TABCR PO (20:37)
[2024-11-26] MEDS: SENNA/DOCUSATE SODIUM TABLET 1 TAB PO (20:37)
[2024-11-27] VITALS (15 sets, daily range): BP systolic 101–122; BP diastolic 41–60; PULSE 59–90; RESP 16–20; TEMP 36.4–36.6; O2SAT 91–98
[2024-11-27] MEDS: IPRATROPIUM 0.5 MG/ALBUTEROL SULFATE 2.5 MG AMPUL.NEB 3 ML INHALATION ×2 (02:35→07:29)
[2024-11-27 08:04] LABS: Basophils Percent Auto 0.2 % (0.2-1.2); Eosinophils Absolute Auto 0.2 K/mm3 (0-0.3); Eosinophils Percent Auto 2.3 % (0-4.4); Hematocrit 28.6 % (42.0-52.0); Hemoglobin 8.9 g/dL (14.0-18.0); Immature Granulocyte Absolute 0.07 K/mm3 (0.00-0.031); Immature Granulocyte Percent A 0.8 % (0-0.5); Lymphocytes Absolute Auto 1.19 K/mm3 (0.9-3.2); Lymphocytes Percent Auto 13.1 % (18.3-44.2); Mean Corpuscular HGB Conc 31.1 g/dl (32-36); Mean Corpuscular Hemoglobin 30.6 pg (26-34); Mean Corpuscular Volume 98.3 fl (80-100); Mean Platelet Volume 10.6 fl (7.4-10.4); Monocytes Absolute Auto 0.9 K/mm3 (0.1-0.6); Monocytes Percent Auto 9.5 % (2.6-8.5); Neutrophils Absolute Auto 6.7 K/mm3 (1.3-6.7); Neutrophils Percent Auto 74.1 % (45.5-73.1); Platelet Count Result 276 k/mm3 (150-375); Red Blood Count 2.91 M/mm3 (4.6-6.20); White Blood Count 9.1 K/mm3 (4.5-10.0)
[2024-11-27 08:16] LABS: Alanine Aminotransferase 18 U/L (6-50); Albumin Level 3.3 g/dL (3.5-5.1); Alkaline Phosphatase 70 U/L (38-126); Anion Gap -2 mmol/L (4-12); Aspartate Amino Transferase 25 U/L (17-59); Bilirubin,Total 0.5 mg/dL (0.2-1.3); Blood Urea Nitrogen 25 mg/dL (9-20); Carbon Dioxide 37 mmol/L (22-30); Chloride 101 mmol/L (98-107); Estimated CRCL calculation 40 ml/min; Estimated Glomerular Filt Rate 49; Glucose 98 mg/dL (65-110); Magnesium 2.1 mg/dL (1.6-2.3); Potassium 4.3 mmol/L (3.4-5.0); Sodium 136 mmol/L (137-145)
[2024-11-27] MEDS: guaiFENesin 12 HR 600 MG TABCR 1200 MG PO ×2 (10:09→21:50)
[2024-11-27] MEDS: LOSARTAN POTASSIUM 50 MG TABLET PO (10:10)
[2024-11-27] MEDS: ASPIRIN 81 MG ENTERIC TABLET PO (10:10)
[2024-11-27] MEDS: AZITHROMYCIN 250 MG TABLET 500 MG PO (10:10)
[2024-11-27] MEDS: SERTRALINE HCL 50 MG TABLET PO (10:10)
[2024-11-27] MEDS: MORPHINE SULFATE (*CRX) 30 MG TABCR PO (10:11)
[2024-11-27] MEDS: FINASTERIDE 5 MG TABLET PO (10:11)
[2024-11-27] MEDS: ATORVASTATIN 40 MG TABLET 80 MG PO (10:11)
[2024-11-27] MEDS: buPROPion HCL SR (12 HR) 150 MG TAB PO ×2 (10:11→21:50)
[2024-11-27] MEDS: TAMSULOSIN HCL 0.4 MG CAPSULE PO (10:11)
[2024-11-27] MEDS: FENOFIBRATE 160 MG TABLET PO (10:14)
[2024-11-27] MEDS: FUROSEMIDE 20 MG TABLET 60 MG PO (10:14)
[2024-11-27] MEDS: polyethylene glycoL 3350 17 GM POWD.PACK PO (10:15)
[2024-11-27] MEDS: LORazepam (*CRX) 0.5 MG TABLET PO ×2 (10:22→21:50)
[2024-11-27] MEDS: ACETAMINOPHEN 325 MG TABLET 650 MG PO ×2 (12:12→18:00)
[2024-11-27] MEDS: SACCHAROMYCES BOULARDII 250 MG CAPSULE PO ×2 (12:13→18:00)
--- NOTE | 2024-11-27 12:38 | P.PNIM_ITS ---
Progress Note: A&P Assessment and Plan (1) Chronic hypoxic respiratory failure, on home oxygen therapy: Code(s): J96.11 - Chronic respiratory failure with hypoxia; Z99.81 - Dependence on supplemental oxygen Status: Acute Assessment and Plan: -Chronic, back on baseline 3L NC. (2) Pleural effusion: Code(s): J90 - Pleural effusion, not elsewhere classified Status: Inactive Assessment and Plan: - CXR: Chronic bibasilar interstitial disease with a moderate right-sided pleural effusion - Chest CTA No pulmonary embolus. No aneurysmal dilatation or dissection within the thoracic aorta. Small bilateral pleural effusions with adjacent compressive atelectasis. - Venous doppler: No DVT - Echo obtained: Summary 1. Left ventricular chamber dimension is normal. 2. There is mildly increased left ventricular wall thickness. 3. Left ventricular systolic function is mildly reduced with an ejection fraction by Biplane Method of Discs of 49 %. 4. Left ventricular wall motion shows inf hypokinesis. 5. The left ventricular diastolic function is grade I diastolic dysfunction. 6. Right ventricular chamber dimension is normal. 7. Right ventricular systolic function is normal. 8. There is no aortic valve stenosis. 9. There is no mitral valve regurgitation. 10. There is no tricuspid valve regurgitation. - Repeat CXR showed: Impression: 1: Progression of coarse interstitial infiltrates, compatible with combination of chronic fibrosis and pneumonia. 2: Small right pleural effusion. - Complicating Factors: COPD with chronic oxygen supplementation (3L NC) - Viral PCR: negative for Flu/COVID/RSV - Right-sided pleural effusion was noted to be moderate in size on chest x-ray though does not appear significant enough to drain. - Does not appear volume overloaded thus will stop IV diuretics and resume his home lasix 60 mg daily as prescribed - Continue scheduled bronchodilators. Encourage incentive spirometry. - Cornet and Mucinex ordered to help mobilize secretions. - Monitor vital signs, I&Os, neuro status and patient is a fall risk - Follow WBC, serum electrolytes, temperature curves and cultures (3) Chronic obstructive pulmonary disease: Code(s): J44.9 - Chronic obstructive pulmonary disease, unspecified Status: Acute Assessment and Plan: Chronic, does not appear to be in acute exacerbation given no wheezing heard on exam. - monitor (4) Pneumonia: Code(s): J18.9 - Pneumonia, unspecified organism Status: Acute Assessment and Plan: - Chest X-ray: Impression: 1: Progression of coarse interstitial infiltrates, compatible with combination of chronic fibrosis and pneumonia. 2: Small right pleural effusion. - Started on Azithromycin 500 mg PO daily and Ceftriaxone 1 gram IVPB daily. - Duonebs changed to q8 PRN - Start Trelegy 100-62.5-25 mcg 1 puff daily - Albuterol 2 puffs q 4 PRN. (5) Congestive heart failure: Code(s): I50.9 - Heart failure, unspecified Status: Acute Assessment and Plan: chronic, continue home medications - echo: Summary 1. Left ventricular chamber dimension is normal. 2. There is mildly increased left ventricular wall thickness. 3. Left ventricular systolic function is mildly reduced with an ejection fraction by Biplane Method of Discs of 49 %. 4. Left ventricular wall motion shows inf hypokinesis. 5. The left ventricular diastolic function is grade I diastolic dysfunction. 6. Right ventricular chamber dimension is normal. 7. Right ventricular systolic function is normal. 8. There is no aortic valve stenosis. 9. There is no mitral valve regurgitation. 10. There is no tricuspid valve regurgitation. (6) Chronic kidney disease, stage 3: Code(s): N18.30 - Chronic kidney disease, stage 3 unspecified Status: Acute Assessment and Plan: BUN/Cr 31/1.5 on admission, appears around baseline. - BUN/Cr 25/1.40 on am labs - Renally dose medications - Avoid nephrotoxic medications - Monitor I/O (7) SVT (supraventricular tachycardia): Code(s): I47.10 - Supraventricular tachycardia, unspecified Status: Acute Assessment and Plan: * Patient had 27 beat run of SVT over night on 11/23/24, along with a short run per nocturnal GREG. Patient was asymptomatic. * Patient magnesium 1.8, patient received a Magnesium Sulfate 2 gm IVPB x1. Repeat magnesium 2.4. Magnesium 2.1 today. * Potassium 3.5. Patient received Potassium Chloride 40 meq PO x1. Repeat potassium 4.2. Potassium today was 4.3. * Cardiology consult, appreciate recommendations. -echo shows EF 49%, grade 1 diastolic dysfunction -switched carvedilol to metoprolol succinate -continue losartan 50 -consider adding Aldactone 12.5 mg for his blood pressure allows -will consider SGOT 2 inhibitor as an outpatient -he has anemia which needs to be further investigated -continue aspirin 81 statin (8) Essential hypertension: Code(s): I10 - Essential (primary) hypertension Status: Acute Assessment and Plan: Chronic, continue home medications - Metoprolol Succinate 50 mg PO at bedtime. - lasix 60 mg daily - losartan 50 mg daily - blood pressure has been stable, continue to monitor (9) Spinal stenosis, lumbar region without neurogenic claudication: Code(s): M48.061 - Spinal stenosis, lumbar region without neurogenic claudication Status: Acute Assessment and Plan: * Morphine 30 mg PO daily and Acetaminophen 650 mg PO q 6 PRN. (10) Constipation: Code(s): K59.00 - Constipation, unspecified Status: Acute Assessment and Plan: * Docusate sodium/ Senna tab 1 tablet oral HS and Miralax 17 gram PO daily. * Add Bisacodyl suppository 10 mg ND x 1. 2 BM's on 11/25/24. * Encourage water intake. (11) Occult gastrointestinal hemorrhage: Code(s): R19.5 - Other fecal abnormalities Status: Acute Assessment and Plan: * Stool positive occult blood on 11/25/24. Patient constipated prior to bowel movement. * GI consulted, appreciate recommendations * Plan upper and lower scopes in 5 weeks per patient. * H&H 8.9/28.6. * Monitor labs. * Pantoprazole 40 mg PO daily. Subjective Date/time seen: 11/27/24 12:38 Interval history: Patient sitting up in bed. Patient reports coughing up green phlegm and that breathing has improved. Patient denies chest pain, palpitations, headache, dizziness, nausea, or vomiting. Review of Systems Review of Systems: All systems reviewed & are unremarkable except as noted in HPI and below Exam Const: General: comfortable and no acute distress Eyes: Sclera: sclerae normal Resp: Effort & Inspection: normal respiratory effort Other: Slightly diminished, air movement improved. Cardio: Rate: regular rate Rhythm: regular rhythm GI: GI Palp: Yes Soft to palpation Auscultation: normal bowel sounds Neuro: Speech: normal speech Extrem: General: no pedal edema Psych: Mental Status: mental status grossly normal Affect: normal affect Objective Data Vital Signs Vital Signs: Vital Signs - 24 hr 11/26/24 13:42 11/26/24 13:42 11/26/24 13:50 Temperature Pulse Rate 66 68 Respiratory Rate 20 20 Blood Pressure Pulse Oximetry 96 Oxygen Delivery Nasal Cannula Oxygen Flow Rate 3 Fraction of Inspired Oxygen 32 11/26/24 14:00 11/26/24 16:23 11/26/24 20:00 Temperature 97.4 F L Pulse Rate 63 70 Respiratory Rate 16 Blood Pressure 100/71 Pulse Oximetry 95 93 Oxygen Delivery Nasal Cannula Oxygen Flow Rate 3 Fraction of Inspired Oxygen 11/26/24 20:00 11/26/24 20:35 11/26/24 20:35 Temperature Pulse Rate 73 71 Respiratory Rate 20 Blood Pressure Pulse Oximetry 88 L Oxygen Delivery Nasal Cannula Oxygen Flow Rate 3 Fraction of Inspired Oxygen 11/26/24 20:40 11/26/24 21:53 11/27/24 00:00 Temperature 98.1 F Pulse Rate 73 65 65 Respiratory Rate 20 17 Blood Pressure 115/45 L Pulse Oximetry 95 Oxygen Delivery Oxygen Flow Rate Fraction of Inspired Oxygen 11/27/24 02:35 11/27/24 02:42 11/27/24 04:00 Temperature Pulse Rate 72 70 71 Respiratory Rate 16 16 Blood Pressure Pulse Oximetry Oxygen Delivery Oxygen Flow Rate Fraction of Inspired Oxygen 11/27/24 05:52 11/27/24 07:29 11/27/24 07:29 Temperature 97.6 F Pulse Rate 68 90 Respiratory Rate 16 20 Blood Pressure 110/41 L Pulse Oximetry 93 91 Oxygen Delivery Nasal Cannula Oxygen Flow Rate 4 Fraction of Inspired Oxygen 36 11/27/24 07:37 Temperature Pulse Rate 85 Respiratory Rate 20 Blood Pressure Pulse Oximetry Oxygen Delivery Oxygen Flow Rate Fraction of Inspired Oxygen Intake/Output Intake/Output: Intake & Output 11/24/24 11/25/24 11/26/24 11/27/24 23:59 23:59 23:59 23:59 Intake Total 3140 2040 1080 620 Output Total 1125 1999 1581 548 Balance 2014 83 -949 -018 Meds/Results Medications: Active Medications Generic Name Dose Route Start Last Admin Trade Name Freq PRN Reason Stop Dose Admin Acetaminophen 650 mg 11/20/24 23:51 11/27/24 12:12 Acetaminophen 325 Mg Tablet PO 650 mg Q6H PRN Administration Mild Pain (1-3) or Fever Albuterol 2 puff 11/27/24 09:12 Albuterol Sulfate (*Sp) Aerosol 1 Puff INHALATION Q4H PRN Shortness Of Breath Or Wheezing Albuterol/Ipratropium 3 ml 11/27/24 09:12 Ipratropium 0.5 Mg/Albuterol Sulfate 2.5 Mg Ampul.Neb 3 Ml INHALATION Q8H PRN shortness of breath or wheezing Aspirin 81 mg 11/21/24 12:23 11/27/24 10:10 Aspirin 81 Mg Enteric Tablet PO 81 mg DAILY GIOVANNY Administration Atorvastatin Calcium 80 mg 11/21/24 12:23 11/27/24 10:11 Atorvastatin 40 Mg Tablet PO 80 mg DAILY GIOVANNY Administration Bupropion HCl 150 mg 11/21/24 21:00 11/27/24 10:11 Bupropion Hcl Sr (12 Hr) 150 Mg Tab PO 150 mg Q12HR GIOVANNY Administration Fenofibrate 160 mg 11/21/24 12:23 11/27/24 10:14 Fenofibrate 160 Mg Tablet PO 160 mg DAILY GIOVANNY Administration Finasteride 5 mg 11/21/24 12:23 11/27/24 10:11 Finasteride 5 Mg Tablet PO 5 mg DAILY GIOVANNY Administration Fluticasone/Umeclidinium/Vilanterol 1 puff 11/27/24 09:25 Fluticasone/Umeclidin/Vilanter 100-62.5-25 Mcg Ellipta INHALATION DAILYRT GIOVANNY Furosemide 60 mg 11/21/24 12:25 11/27/24 10:14 Furosemide 20 Mg Tablet PO 60 mg DAILY GIOVANNY Administration Guaifenesin 1,200 mg 11/21/24 09:00 11/27/24 10:09 Guaifenesin 12 Hr 600 Mg Tabcr PO 1,200 mg Q12HR GIOVANNY Administration Ceftriaxone Sodium 1 gm in 50 mls @ 100 mls/hr 11/23/24 09:00 11/27/24 10:14 Rocephin 1 Gm/Ns 50 Ml IVPB 100 mls/hr Q24H GIOVANNY Administration Linaclotide 290 mcg 11/28/24 06:30 Linaclotide 145 Mcg Capsule PO DAILY@0630 GIOVANNY Loratadine 10 mg 11/27/24 09:19 Loratadine 10 Mg Tablet PO QAM PRN allergies Lorazepam 0.5 mg 11/21/24 16:39 11/27/24 10:22 Lorazepam (*Crx) 0.5 Mg Tablet PO 0.5 mg BID PRN Administration anxiety Losartan Potassium 50 mg 11/21/24 12:25 11/27/24 10:10 Losartan Potassium 50 Mg Tablet PO 50 mg DAILY GIOVANNY Administration Metoprolol Succinate 50 mg 11/24/24 21:00 11/26/24 20:37 Metoprolol Succinate Ext Rel 50 Mg Tabcr PO 50 mg HS GIOVANNY Administration Miscellaneous Information 0 each 11/27/24 00:01 Albuterol Hfa And Duoneb Both Prn For Sob/Wheezing - Please Specify When To Use Each XX 12/27/24 00:00 CLARIFY GIOVANNY Morphine Sulfate 30 mg 11/21/24 12:25 11/27/24 10:11 Morphine Sulfate (*Crx) 30 Mg Tabcr PO 30 mg QAM GIOVANNY Administration Multivitamins Therapeutic 1 tablet 11/28/24 09:00 Multivitamins Therapeutic Tab (*Bkc) PO DAILY GIOVANNY Nitroglycerin 0.4 mg 11/27/24 09:20 Nitroglycerin Sl 0.4 Mg Tablet SUBLINGUAL Q5MIN PRN Chest Pain Pantoprazole Sodium 40 mg 11/28/24 09:00 Pantoprazole 40 Mg Tablet PO QAM GIOVANNY Polyethylene Glycol 17 gm 11/23/24 10:15 11/27/24 10:15 Polyethylene Glycol 3350 17 Gm Powd.Pack PO 17 gm QAM GIOVANNY Administration Polyethylene Glycol 17 gm 11/27/24 09:07 Polyethylene Glycol 3350 17 Gm Powd.Pack PO QAM PRN Constipation Saccharomyces Boulardii 250 mg 11/27/24 13:00 11/27/24 12:13 Saccharomyces Boulardii 250 Mg Capsule PO 250 mg TID GIOVANNY Administration Senna/Docusate Sodium 1 tab 11/22/24 21:00 11/26/24 20:37 Senna/Docusate Sodium Tablet PO 1 tab HS GIOVANNY Administration Sertraline HCl 50 mg 11/21/24 12:25 11/27/24 10:10 Sertraline Hcl 50 Mg Tablet PO 50 mg DAILY GIOVANNY Administration Tamsulosin HCl 0.4 mg 11/21/24 12:25 11/27/24 10:11 Tamsulosin Hcl 0.4 Mg Capsule PO 0.4 mg DAILY GIOVANNY Administration Trazodone HCl 100 mg 11/21/24 21:00 11/26/24 20:37 Trazodone Hcl 50 Mg Tablet PO 100 mg HS GIOVANNY Administration Radiology Results: ITS Impressions Chest CTA 11/20/24 19:21 IMPRESSION: No pulmonary embolus. No aneurysmal dilatation or dissection within the thoracic aorta. Small bilateral pleural effusions with adjacent compressive atelectasis. Venous Doppler Study 11/21/24 08:38 IMPRESSION: 1. No deep venous thrombosis. 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 2: Small right pleural effusion. Labs Labs: Laboratory Results - last 24 hr 11/27/24 07:25 WBC 9.1 RBC 2.91 L Hgb 8.9 L Hct 28.6 L MCV 98.3 MCH 30.6 MCHC 31.1 L RDW 14.0 Plt Count 276 MPV 10.6 H Immature Gran % (Auto) 0.8 H Neut % (Auto) 74.1 H Lymph % (Auto) 13.1 L [place] % (Auto) 9.5 H Eos % (Auto) 2.3 Baso % (Auto) 0.2 Lymph # (Auto) 1.19 [place] # (Auto) 0.9 H Eos # (Auto) 0.2 Baso # (Auto) 0.0 Abs Immat Gran (auto) 0.07 H Absolute Neuts (auto) 6.7 Absolute Nucleated RBC 0.000 Nucleated RBC % 0.0 Sodium 136 L Potassium 4.3 Chloride 101 Carbon Dioxide 37 H Anion Gap -2 L BUN 25 H Creatinine 1.40 H Estim Creat Clear Calc 40 Estimated GFR 49 L Glucose 98 Calcium 9.0 Magnesium 2.1 Total Bilirubin 0.5 AST 25 ALT 18 Alkaline Phosphatase 70 Total Protein 6.0 L Albumin 3.3 L Quality VTE Prophylaxis VTE prophylaxis: mechanical ordered
[2024-11-27] MEDS: FLUTICASONE/UMECLIDIN/VILANTER 100-62.5-25 MCG ELLIPTA 1 PUFF INHALATION (13:54)
--- NOTE | 2024-11-27 14:08 | WPDGIPROGNO ---
Progress Note: A&P Assessment and Plan (1) Occult gastrointestinal hemorrhage: Code(s): R19.5 - Other fecal abnormalities Status: Acute (2) Congestive heart failure: Code(s): I50.9 - Heart failure, unspecified Status: Acute (3) Shortness of breath: Code(s): R06.02 - Shortness of breath Status: Acute (4) Chronic obstructive pulmonary disease: Code(s): J44.9 - Chronic obstructive pulmonary disease, unspecified Status: Acute Plan Anemia heme-positive stool. Currently no obvious GI bleeding H and H is stable today hemoglobin is 8.9 patient currently denies any nausea vomiting abdominal pain advised the patient that he will need an upper endoscopy and colonoscopy as outpatient in 4 to 6 weeks once his breathing gets better. If H&H stay stable tomorrow we will sign off. We will also give the patient PPI once a day Congestive heart failure/shortness of breath being followed by Medicine team Family history of colon cancer recommended outpatient colonoscopy Regular GI team will assume patient care tomorrow Subjective Date/time seen: 11/27/24 14:08 Interval history: Patient is doing well no nausea vomiting abdominal pain patient is being seen for heme-positive stool and anemia currently admitted to the hospital with congestive heart failure and shortness of breath. Patient also has a family history of colon cancer. Currently patient denies any GI symptoms according to him he did not have any bowel movement and taking MiraLax today Review of Systems Constitutional: Constitutional: Denies chills, Denies fatigue, Denies fever(s), Denies headache(s), Denies malaise, Denies weight gain and Denies weight loss Eyes: Eyes: Denies change in vision ENT: Denies dizziness, Denies headache(s) and Reports other (No change in hearing) Cardiovascular: Cardiovascular: Denies chest pain, Denies dyspnea and Reports other (denies palpitations, denies orthopnea) Respiratory: Respiratory: Denies cough, Denies dyspnea and Reports other (denies sputum production, denies hemoptysis) Comments: Wearing oxygen by nasal cannula Gastrointestinal: Gastrointestinal: Reports as per HPI Genitourinary: Genitourinary: Denies hematuria, Denies dysuria and Denies urinary incontinence Musculoskeletal: Musculoskeletal: Reports other (denies extremity edema, denies myalgia) Integumentary/Breasts: Skin/Breast: Denies new lesions and Denies rash Neurologic: Denies dizziness, Denies headache(s) and Denies seizure-like activity Endocrine: Endocrine: Denies fatigue Hematologic/Lymphatic: Hematologic/Lymphatic: Denies easy bleeding and Denies easy bruising Exam Const: General: cooperative; No acute distress Orientation/consciousness: patient oriented x3 HENMT: Head: normal to inspection Neck: Neck: supple Resp: Auscultation: clear to auscultation bilaterally Other: On by nasal oxygen Cardio: Rate: regular rate Rhythm: regular rhythm GI: Inspection: non-distended GI Palp: Yes Soft to palpation, No Tenderness to palpation present (GI) and No Palpable mass present Auscultation: normal bowel sounds Rectal Exam: deferred Skin: General skin exam: no rashes or lesions noted Neuro: General: patient oriented x3 Extrem: General: no edema Objective Data Vital Signs Vital Signs: Vital Signs - 24 hr 11/26/24 16:23 11/26/24 20:00 11/26/24 20:00 Temperature Pulse Rate 70 73 Respiratory Rate Blood Pressure Pulse Oximetry 93 Oxygen Delivery Nasal Cannula Oxygen Flow Rate 3 Fraction of Inspired Oxygen 11/26/24 20:35 11/26/24 20:35 11/26/24 20:40 Temperature Pulse Rate 71 73 Respiratory Rate 20 20 Blood Pressure Pulse Oximetry 88 L Oxygen Delivery Nasal Cannula Oxygen Flow Rate 3 Fraction of Inspired Oxygen 11/26/24 21:53 11/27/24 00:00 11/27/24 02:35 Temperature 98.1 F Pulse Rate 65 65 72 Respiratory Rate 17 16 Blood Pressure 115/45 L Pulse Oximetry 95 Oxygen Delivery Oxygen Flow Rate Fraction of Inspired Oxygen 11/27/24 02:42 11/27/24 04:00 11/27/24 05:52 Temperature 97.6 F Pulse Rate 70 71 68 Respiratory Rate 16 16 Blood Pressure 110/41 L Pulse Oximetry 93 Oxygen Delivery Oxygen Flow Rate Fraction of Inspired Oxygen 11/27/24 07:29 11/27/24 07:29 11/27/24 07:37 Temperature Pulse Rate 90 85 Respiratory Rate 20 20 Blood Pressure Pulse Oximetry 91 Oxygen Delivery Nasal Cannula Oxygen Flow Rate 4 Fraction of Inspired Oxygen 36 11/27/24 13:54 11/27/24 13:54 Temperature Pulse Rate 66 Respiratory Rate 20 Blood Pressure Pulse Oximetry 97 Oxygen Delivery Nasal Cannula Oxygen Flow Rate 4 Fraction of Inspired Oxygen 36 Intake/Output Intake/Output: Intake & Output 11/24/24 11/25/24 11/26/24 11/27/24 23:59 23:59 23:59 23:59 Intake Total 3140 2040 1080 620 Output Total 1125 2000 1582 991 Balance 2014 42 -052 -866 Meds/Results Medications: Active Medications Generic Name Dose Route Start Last Admin Trade Name Freq PRN Reason Stop Dose Admin Acetaminophen 650 mg 11/20/24 23:51 11/27/24 12:12 Acetaminophen 325 Mg Tablet PO 650 mg Q6H PRN Administration Mild Pain (1-3) or Fever Albuterol 2 puff 11/27/24 09:12 Albuterol Sulfate (*Sp) Aerosol 1 Puff INHALATION Q4H PRN Shortness Of Breath Or Wheezing Albuterol/Ipratropium 3 ml 11/27/24 09:12 Ipratropium 0.5 Mg/Albuterol Sulfate 2.5 Mg Ampul.Neb 3 Ml INHALATION Q8H PRN shortness of breath or wheezing Aspirin 81 mg 11/21/24 12:23 11/27/24 10:10 Aspirin 81 Mg Enteric Tablet PO 81 mg DAILY GIOVANNY Administration Atorvastatin Calcium 80 mg 11/21/24 12:23 11/27/24 10:11 Atorvastatin 40 Mg Tablet PO 80 mg DAILY GIOVANNY Administration Bupropion HCl 150 mg 11/21/24 21:00 11/27/24 10:11 Bupropion Hcl Sr (12 Hr) 150 Mg Tab PO 150 mg Q12HR GIOVANNY Administration Fenofibrate 160 mg 11/21/24 12:23 11/27/24 10:14 Fenofibrate 160 Mg Tablet PO 160 mg DAILY GIOVANNY Administration Finasteride 5 mg 11/21/24 12:23 11/27/24 10:11 Finasteride 5 Mg Tablet PO 5 mg DAILY GIOVANNY Administration Fluticasone/Umeclidinium/Vilanterol 1 puff 11/27/24 09:25 11/27/24 13:54 Fluticasone/Umeclidin/Vilanter 100-62.5-25 Mcg Ellipta INHALATION 1 puff DAILYRT GIOVANNY Administration Furosemide 60 mg 11/21/24 12:25 11/27/24 10:14 Furosemide 20 Mg Tablet PO 60 mg DAILY GIOVANNY Administration Guaifenesin 1,200 mg 11/21/24 09:00 11/27/24 10:09 Guaifenesin 12 Hr 600 Mg Tabcr PO 1,200 mg Q12HR GIOVANNY Administration Ceftriaxone Sodium 1 gm in 50 mls @ 100 mls/hr 11/23/24 09:00 11/27/24 10:14 Rocephin 1 Gm/Ns 50 Ml IVPB 100 mls/hr Q24H GIOVANNY Administration Linaclotide 290 mcg 11/28/24 06:30 Linaclotide 145 Mcg Capsule PO DAILY@0630 GIOVANNY Loratadine 10 mg 11/27/24 09:19 Loratadine 10 Mg Tablet PO QAM PRN allergies Lorazepam 0.5 mg 11/21/24 16:39 11/27/24 10:22 Lorazepam (*Crx) 0.5 Mg Tablet PO 0.5 mg BID PRN Administration anxiety Losartan Potassium 50 mg 11/21/24 12:25 11/27/24 10:10 Losartan Potassium 50 Mg Tablet PO 50 mg DAILY GIOVANNY Administration Metoprolol Succinate 50 mg 11/24/24 21:00 11/26/24 20:37 Metoprolol Succinate Ext Rel 50 Mg Tabcr PO 50 mg HS GIOVANNY Administration Miscellaneous Information 0 each 11/27/24 00:01 Albuterol Hfa And Duoneb Both Prn For Sob/Wheezing - Please Specify When To Use Each XX 12/27/24 00:00 CLARIFY GIOVANNY Morphine Sulfate 30 mg 11/21/24 12:25 11/27/24 10:11 Morphine Sulfate (*Crx) 30 Mg Tabcr PO 30 mg QAM GIOVANNY Administration Multivitamins Therapeutic 1 tablet 11/28/24 09:00 Multivitamins Therapeutic Tab (*Bkc) PO DAILY GIOVANNY Nitroglycerin 0.4 mg 11/27/24 09:20 Nitroglycerin Sl 0.4 Mg Tablet SUBLINGUAL Q5MIN PRN Chest Pain Pantoprazole Sodium 40 mg 11/28/24 09:00 Pantoprazole 40 Mg Tablet PO QAM GIOVANNY Polyethylene Glycol 17 gm 11/23/24 10:15 11/27/24 10:15 Polyethylene Glycol 3350 17 Gm Powd.Pack PO 17 gm QAM GIOVANNY Administration Polyethylene Glycol 17 gm 11/27/24 09:07 Polyethylene Glycol 3350 17 Gm Powd.Pack PO QAM PRN Constipation Saccharomyces Boulardii 250 mg 11/27/24 13:00 11/27/24 12:13 Saccharomyces Boulardii 250 Mg Capsule PO 250 mg TID GIOVANNY Administration Senna/Docusate Sodium 1 tab 11/22/24 21:00 11/26/24 20:37 Senna/Docusate Sodium Tablet PO 1 tab HS GIOVANNY Administration Sertraline HCl 50 mg 11/21/24 12:25 11/27/24 10:10 Sertraline Hcl 50 Mg Tablet PO 50 mg DAILY GIOVANNY Administration Tamsulosin HCl 0.4 mg 11/21/24 12:25 11/27/24 10:11 Tamsulosin Hcl 0.4 Mg Capsule PO 0.4 mg DAILY GIOVANNY Administration Trazodone HCl 100 mg 11/21/24 21:00 11/26/24 20:37 Trazodone Hcl 50 Mg Tablet PO 100 mg HS GIOVANNY Administration Radiology Results: ITS Impressions Chest CTA 11/20/24 19:21 IMPRESSION: No pulmonary embolus. No aneurysmal dilatation or dissection within the thoracic aorta. Small bilateral pleural effusions with adjacent compressive atelectasis. Venous Doppler Study 11/21/24 08:38 IMPRESSION: 1. No deep venous thrombosis. 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 2: Small right pleural effusion. Labs Labs: Laboratory Results - last 24 hr 11/27/24 07:25 WBC 9.1 RBC 2.91 L Hgb 8.9 L Hct 28.6 L MCV 98.3 MCH 30.6 MCHC 31.1 L RDW 14.0 Plt Count 276 MPV 10.6 H Immature Gran % (Auto) 0.8 H Neut % (Auto) 74.1 H Lymph % (Auto) 13.1 L [place] % (Auto) 9.5 H Eos % (Auto) 2.3 Baso % (Auto) 0.2 Lymph # (Auto) 1.19 [place] # (Auto) 0.9 H Eos # (Auto) 0.2 Baso # (Auto) 0.0 Abs Immat Gran (auto) 0.07 H Absolute Neuts (auto) 6.7 Absolute Nucleated RBC 0.000 Nucleated RBC % 0.0 Sodium 136 L Potassium 4.3 Chloride 101 Carbon Dioxide 37 H Anion Gap -2 L BUN 25 H Creatinine 1.40 H Estim Creat Clear Calc 40 Estimated GFR 49 L Glucose 98 Calcium 9.0 Magnesium 2.1 Total Bilirubin 0.5 AST 25 ALT 18 Alkaline Phosphatase 70 Total Protein 6.0 L Albumin 3.3 L
--- OUTSIDE RECORDS SUMMARY | 2024-11-27 17:08 | XMS_ITS ---
Author Name Jann POSEY Kiara nimisha Address Unknown Phone tel: Organization Unknown Address Unknown Phone tel: Care Team Providers Care Mission Support Specialist Name Role Phone Kristine Forte NP Primary Care Provider tel: Shilpi Jones Primary Care Provider tel: ALLERGIES, ADVERSE REACTIONS Data in this section may be excluded or not available. ASSESSMENTS Data in this section may be excluded or not available. SOCIAL HISTORY Description Effective Dates Sex M (Male) VITAL SIGNS Type Value Date Height (Code: 8302-2 ) 71 ( [in_i] ) March 30 BP (Systolic) (Code: 8480-6 ) 122 ( mm[Hg] ) M 2022 BP (Diastolic) (Code: 8462-4 ) 62 ( mm[Hg] ) March 30, 2023 Pulse (Code: 8867-4 ) 87 ( /min ) March 30 Oxygen Saturation (Code: 09117-0 ) 94 ( % ) March 30, 2023 Inhaled Oxygen Concentration (Code: 3150-0 ) 21 ( % ) March 30, 2023 Temperature (Code: 8310-5 ) 98.3 ( [degF] ) March 30, 2023 Respiration (Code: 9279-1 ) 18 ( /min ) March 30, 2023 PROBLEMS Data in this section may be excluded or not available. FUNCTIONAL STATUS Functional Condition Date Status Feeding: Independent March 30, 2023 Active Bathing: Independent (or in shower) March 30, 2023 Active Grooming: Independent face/h air/teeth/ shaving (implements provided) March 30, 2023 Active Dressing: Independent (including buttons, zips, laces, etc.) March 30, 2023 Active Bowels: Continent March 30, 2023 Active Bladder: Continent March 30, 2023 Active Toilet use: Independent (on and off, dressing, w iping) March 30, 2023 Active Transfers (bed to chair and back): Independent M 2022 Active Mobility (on level surfaces) : Independent (but may use any aid; for example, stick) >50 yards March 30, 2023 Active Stairs: Independent March 30, 2023 Active Total score: 100 March 30, 2023 Active COGNITIVE STATUS Condition Date Status Normal March 30, 2023 Active Patient Care Teams * Care Mission Support Specialist Role on Team Date Mitchell. Kristine Dobbins
--- OUTSIDE RECORDS SUMMARY | 2024-11-27 17:08 | XMS_ITS ---
Author Name Christopher Love NP Address Unknown Phone tel: Organization Unknown Address Unknown Phone tel: Care Team Providers Care Hand Launderer Name Role Phone Christopher Love NP Primary Care Provider tel: Shilpi Jones Primary Care Provider tel: ALLERGIES, ADVERSE REACTIONS Data in this section may be excluded or not available. ASSESSMENTS Data in this section may be excluded or not available. SOCIAL HISTORY Description Effective Dates Sex M (Male) PROBLEMS Data in this section may be excluded or not available. Patient Care Teams * Care Hand Launderer Role on Team Date Ivan. Christopher Dobbins
--- OUTSIDE RECORDS SUMMARY | 2024-11-27 17:08 | XMS_ITS ---
Author Name Jann POSEY, Kiara bansal Address Unknown Phone tel: Organization Unknown Address Unknown Phone tel: Care Team Providers Care Tube Winder Hand Name Role Phone Kristine Forte NP Primary Care Provider tel: Shilpi Jones Primary Care Provider tel: ALLERGIES, ADVERSE REACTIONS Data in this section may be excluded or not available. ASSESSMENTS Data in this section may be excluded or not available. SOCIAL HISTORY Description Effective Dates Sex M (Male) VITAL SIGNS Type Value Date Height (Code: 8302-2 ) 71 ( [in_i] ) March 06, 2023 Weight (Code: 07590-4 ) 205 ( [lb_av] ) February 212022 BP (Systolic) (Code: 8480-6 ) 126 ( mm[Hg] ) A pril 2022 BP (Diastolic) (Code: 8462-4 ) 74 ( mm[Hg] ) March 06, 2023 Pulse (Code: 8867-4 ) 62 ( /min ) March 06, 2023 Oxygen Saturation (Code: 47821-0 ) 100 ( % ) March 06, 2023 Inhaled Oxygen Concentration (Code: 3150-0 ) 21 ( % ) March 06, 2023 BMI (Code: 10856-0 ) 28.6 ( kg/m2 ) March 06, 2023 Temperature (Code: 8310-5 ) 97.3 ( [degF] ) Apr il 2022 Respiration (Code: 9279-1 ) 18 ( /min ) Apri l 2022 PROBLEMS Data in this section may be excluded or not available. Patient Care Teams * Care Tube Winder Hand Role on Team Date Mitchell. Kristine Dobbins
--- OUTSIDE RECORDS SUMMARY | 2024-11-27 17:08 | XMS_ITS | Continuity of Care Document ---
Author Organization [facility] Address [address] [place] [address] Insurance Providers Payer Plan Claims Address Claims Phone Policy Number Group Number Relation Employer Guarantor Name Guarantor Guarantor Address Guarantor Phone [facility] [employer] [place] [address] [address], [place] [address] tel:[phone] Self Russell Morse [address] [place] [address] [place] [address] [facility] [employer] [address] [address], [place] [address] tel:[phone] Self Russell Morse [address] [place] [address] [id number] [facility] fatemeh Insura mae [facility] Insur [facility] [id number] Self Russell Morse [address] [place] [address] [id number] Problems Condition ICD9 code ICD10 code SNOMED code Start Date End Date S tatus Chronic obstructive pulmonary disease, unspecified J44.9 Admitting Chronic obstructive pulmonary disease, unspecified J44.9 Admitting Chronic obstructive pulmonary disease, unspecified J44.9 Admitting Chronic obstructive pulmonary disease, unspecified J44.9 Admitting Chronic obstructive pulmonary disease, unspecified J44.9 Admitting Chronic obstructive pulmonary disease, unspecified J44.9 Admitting Chronic obstructive pulmonary disease, unspecified J44.9 Admitting Chronic obstructive pulmonary disease, unspecified J44.9 Admitting Chronic obstructive pulmonary disease, unspecified J44.9 Admitting Chronic obstructive pulmonary disease, unspecified J44.9 Admitting Chronic obstructive pulmonary disease, unspecified J44.9 Admitting Chronic obstructive pulmonary disease, unspecified J44.9 Admitting Chronic obstructive pulmonary disease, unspecified J44.9 Admitting Chronic obstructive pulmonary disease, unspecified J44.9 Admitting Sepsis, unspecified organism A41.9 Working Pneumonia, unspecified organism J18.9 Working Acute and chronic respiratory failure, unspecified whether with hypoxia or hypercapnia J96.20 Working Essential (primary) hypertension I10 Working Chronic obstructive pulmonary disease with (acute) exacerbation J44.1 Work ing Sepsis, unspecified organism A41.9 Final Pneumonia, unspecified organism J18.9 Final Acute and chronic respiratory failure, unspecified whether with hypoxia or hypercapnia J96.20 Final Essential (primary) hypertension I10 Final Chronic obstructive pulmonary disease with (acute) exacerbation J44.1 Wendy alejandra Chronic obstructive pulmonary disease, unspecified J44.9 Admitting Chronic obstructive pulmonary disease, unspecified J44.9 Admitting Chronic obstructive pulmonary disease, unspecified J44.9 Admitting Chronic obstructive pulmonary disease, unspecified J44.9 Admitting Chronic obstructive pulmonary disease, unspecified J44.9 Admitting Chronic obstructive pulmonary disease, unspecified J44.9 Admitting Chronic obstructive pulmonary disease, unspecified J44.9 Admitting Chronic obstructive pulmonary disease, unspecified J44.9 Admitting Chronic kidney disease, unspecified N18.9 Wendy alejandra Dependence on supplemental oxygen Z99.81 Final Chronic obstructive pulmonary disease with (acute) exacerbation J44.1 Wendy alejandra Ischemic cardiomyopathy I25.5 Final Chronic obstructive pulmonary disease, unspecified J44.9 Admitting Chronic obstructive pulmonary disease, unspecified J44.9 Final Type 2 diabetes mellitus without complications E11.9 Admitting Chronic obstructive pulmonary disease, unspecified J44.9 Admitting Chronic obstructive pulmonary disease, unspecified J44.9 Admitting Chronic obstructive pulmonary disease, unspecified J44.9 Admitting Chronic obstructive pulmonary disease, unspecified J44.9 Admitting Chronic obstructive pulmonary disease, unspecified J44.9 Admitting Chronic obstructive pulmonary disease, unspecified J44.9 Admitting Chronic obstructive pulmonary disease, unspecified J44.9 Admitting Chronic obstructive pulmonary disease, unspecified J44.9 Final Chronic obstructive pulmonary disease, unspecified J44.9 Admitting Chronic obstructive pulmonary disease, unspecified J44.9 Final Chronic diastolic (congestive) heart failure I50.32 Cough, unspecified R05.9 Other forms of dyspnea R06.09 Results No Results Allergies, adverse reactions, alerts No known allergies and adverse reactions Medications No administered medications reported Vital Signs Date Vital Result Comment 11/09/2024 Inhaled Oxygen Concentration 21.0 % N Faces Pain Scale 0.0 N Oxygen Saturation 97 % N Respiratory Rate 18 /min N Heart Rate 74 /min N Blood Pressure Systolic 128 mm[Hg] N Blood Pressure Diastolic 74 mm[Hg] N Body Height 71 [in_i] N Body Weight 185 [lb_av] N Body Mass Index 25.8 kg/m2 N 11/19/2024 Inhaled Oxygen Concentration 32.0 % N Faces Pain Scale 0.0 N Oxygen Saturation 93 % N Heart Rate 63 /min N Body Height 71 [in_i] N 11/20/2024 Inhaled Oxygen Concentration 32.0 % N Faces Pain Scale 0.0 N Temperature 97 [degF] N Oxygen Saturation 93 % N Respiratory Rate 20 /min N Heart Rate 65 /min N Blood Pressure Systolic 124 mm[Hg] N Blood Pressure Diastolic 62 mm[Hg] N Body Height 71 [in_i] N Social History No smoking Hx information available Functional Status Category Condition Date Problem (Feeding: Independent) Feeding: Independ ent 11/09/2024 Problem (Bathing: Independen t (or in shower)) Bathing: Independent (or in shower) 11/09/2024 Problem (Grooming: Independe nt face/hair/teeth/ shaving (implements provided)) Grooming: Independent face/hair/teeth/ shaving (implements provided) 11/09/2024 Problem (Dressing: Independe nt (including buttons, zips, laces, etc.)) Dressing: Independent (including buttons, zips, laces, etc.) 11/09/2024 Problem (Bowels: Continent) Bowels: Continent Problem (Bladder: Continent) Bladder: Continent 11/09/2024 Problem (Toilet use: Indepen dent (on and off, dressing, wiping)) Toilet use: Independent (on and off, dressing, wiping) 11/09/2024 Problem (Transfers (bed to c hair and back): Independent) Transfers (bed to chair and back): Independent 11/09/2024 Problem (Mobility (on level surfaces): Independent (but may use any aid; for example, stick) >50 yards) Mobility (on level surfaces): Independent (but may use any aid; for example, stick) >50 yards 11/09/2024 Problem (Stairs: Unable) Stairs: Unable 024 Problem (Total score: 90) Total score: 90 2023
--- OUTSIDE RECORDS SUMMARY | 2024-11-27 17:09 | XMS_ITS ---
Author Name Taisha Martinez NP Address Unknown Phone tel: Organization Unknown Address Unknown Phone tel: Care Team Providers Care City Surveyor Name Role Phone Taisha Martinez NP Primary Care Provider tel: Shilpi Jones Primary Care Provider tel: ALLERGIES, ADVERSE REACTIONS Data in this section may be excluded or not available. ASSESSMENTS Data in this section may be excluded or not available. SOCIAL HISTORY Description Effective Dates Sex M (Male) PROBLEMS Data in this section may be excluded or not available. Patient Care Teams * Care City Surveyor Role on Team Date Juan. Taisha Dobbins
--- OUTSIDE RECORDS SUMMARY | 2024-11-27 17:09 | XMS_ITS | Encounter Summary ---
Author Organization [facility] Healthcare Address [address] [place] [address] Care Team Providers Care Airplane Flight Attendant Name Role Phone Naveed Mcintosh MD Primary Care Prov ider Encounter Details Date Type Department Care Team (Late st Contact Info) Description 12/11/2023 Telephone [facility] Medical [facility] Cardiology [address] [place] [address] Jeanie Mayorga Social History Tobacco Use Types Packs/Day Years Used Date Smoking Tobacco: Former Cigarettes 1.5 65 0 [birth year]/12/1956 - 09/19/2018 Smokeless Tobacco: Never Comments:Quit 08/2019 Alcohol Use Standard Drinks/Week Comments Not Currently 0 (1 standard drink = 0.6 oz pur e alcohol) Personal Safety Answer Date Recorded Getting School Help Needed Not on file 12/11 Sex and Gender Information Value Date Recorded Sex Assigned at Not on file Legal Sex Male 9:37 AM SPECIAL EVENTS PLANNER Gender Identity Male 11/26/2019 3:10 PM SPECIAL EVENTS PLANNER Sexual Orientation Not on file documented as of this encounter Miscellaneous Notes * Telephone Encounter - Eugenia Herrera RN - 12/15/2023 9:07 AM SPECIAL EVENTS PLANNER F response faxed to pulmonary sleep med. IAL EVENTS PLANNER * Telephone Encounter - Eugenia Herrera RN - 12/11/2023 1:01 PM SPECIAL EVENTS PLANNER Will forward to [facility]. Please advise. IAL EVENTS PLANNER * Telephone Encounter - Jeanie Mayorga - 12/11/2023 12:01 PM CST Bree from Pulmonary sleep medicine at called stating they are wanting to refer patient to pulmonary rehab and wanted to know if patient needs a stress test before or if it can be waived. Fax letter to [phone] IAL EVENTS PLANNER documented in this encounter Plan of Treatment Not on file documented as of this encounter Visit Diagnoses Not on filedocumented in this encounter Care Teams Airplane Flight Attendant Relationship Specialty Start Date End Date Naveed Mcintosh MD [address] [place] [address] PCP - General Family Medicine 10/07/19 documented as of this encounter
--- OUTSIDE RECORDS SUMMARY | 2024-11-27 17:09 | XMS_ITS ---
Author Name Taisha Martinez NP Address Unknown Phone tel: Organization Unknown Address Unknown Phone tel: Care Team Providers Care Embalmer Apprentice Name Role Phone Taisha Martinez NP Primary Care Provider tel: Shilpi Jones Primary Care Provider tel: ALLERGIES, ADVERSE REACTIONS Data in this section may be excluded or not available. ASSESSMENTS Data in this section may be excluded or not available. SOCIAL HISTORY Description Effective Dates Sex M (Male) VITAL SIGNS Type Value Date Height (Code: 8302-2 ) 71 ( [in_i] ) June BP (Systolic) (Code: 8480-6 ) 132 ( mm[Hg] ) A ugust 2022 BP (Diastolic) (Code: 8462-4 ) 55 ( mm[Hg] ) July 07, 2023 Pulse (Code: 8867-4 ) 78 ( /min ) June Oxygen Saturation (Code: 94244-8 ) 98 ( % ) July 07, 2023 Inhaled Oxygen Concentration (Code: 3150-0 ) 21 ( % ) July 07, 2023 Temperature (Code: 8310-5 ) 97.3 ( [degF] ) Augu st 2022 Respiration (Code: 9279-1 ) 18 ( /min ) Augu st 2022 PROBLEMS Data in this section may be excluded or not available. Patient Care Teams * Care Embalmer Apprentice Role on Team Date Juan. Taisha Dobbins
--- OUTSIDE RECORDS SUMMARY | 2024-11-27 17:09 | XMS_ITS ---
Author Name Taisha Martinez NP Address Unknown Phone tel: Organization Unknown Address Unknown Phone tel: Care Team Providers Care Mold Carpenter Name Role Phone Taisha Martinez NP Primary Care Provider tel: Shilpi Jones Primary Care Provider tel: ALLERGIES, ADVERSE REACTIONS Data in this section may be excluded or not available. ASSESSMENTS Data in this section may be excluded or not available. SOCIAL HISTORY Description Effective Dates Sex M (Male) VITAL SIGNS Type Value Date Height (Code: 8302-2 ) 71 ( [in_i] ) September 28, 2023 Weight (Code: 33660-4 ) 195 ( [lb_av] ) Novembe r 2022 BP (Systolic) (Code: 8480-6 ) 98 ( mm[Hg] ) N ovember 2022 BP (Diastolic) (Code: 8462-4 ) 50 ( mm[Hg] ) September 28, 2023 Pulse (Code: 8867-4 ) 78 ( /min ) September Oxygen Saturation (Code: 41418-4 ) 90 ( % ) September 28, 2023 Inhaled Oxygen Concentration (Code: 3150-0 ) 21 ( % ) September 28, 2023 BMI (Code: 26420-6 ) 27.2 ( kg/m2 ) September 28, 2023 Respiration (Code: 9279-1 ) 18 ( /min ) Neli byrd 2022 Faces Pain Scale (Code: 49113-6 ) 0 - No Hurt ( ) September 28, 2023 PROBLEMS Data in this section may be excluded or not available. Patient Care Teams * Care Mold Carpenter Role on Team Date Juan. Taisha Dobbins
--- OUTSIDE RECORDS SUMMARY | 2024-11-27 17:09 | XMS_ITS | Continuity of Care Document ---
Author Organization [facility] Address [address] [place] [address] Phone Care Team Providers Care Annealer Helper Name Role Phone Dante PT, DPT, Te [...] on Encounter [facility], [address], [place], [place], [id number], [place] tel:[phone] Joe Low back painOth symptoms and signs involving the musculoskelet al systemAbnorma l postureOther abnormalities of gait and mobility 9 aDnte Tiwari. . Referring Provider: Naveed Mcintosh , [address] [place] [address], [place], [address]. tel:[phone] [facility], [id number], tel:[phone] [place] Low back painOth symptoms and signs involving the musculoskelet al systemAbnorma l postureOther abnormalities of gait and mobility Krystlehovidya Starka. . Referring Provider: Naveed Mcintosh , [address] [place] [address], [address]. tel:[phone] [facility], [id number], [place] tel:[phone] [place] Low back painOth symptoms and signs involving the musculoskelet al systemAbnorma l postureOther abnormalities of gait and mobility Krystlehovidya Mcclellan. . Referring Provider: Naveed Mcintosh , [address] [place] [address], [address]. tel:[phone] [facility], [id number], tel:[phone] [place] Low back painOth symptoms and signs involving the musculoskelet al systemAbnorma l postureOther abnormalities of gait and mobility Krystlehoffer Vy. . Referring Provider: Naveed Mcintosh , [address] [place] [address], [address]. tel:[phone] [facility], [id number], tel:[phone] [place] Low back painOth symptoms and signs involving the musculoskelet al systemAbnorma l postureOther abnormalities of gait and mobility Dante Tiwari. . Referring Provider: Naveed Mcintosh , [address] [place] [address], [address]. tel:[phone] [facility], [id number], tel:[phone] [place] Low back painOth symptoms and signs involving the musculoskelet al systemAbnorma l postureOther abnormalities of gait and mobility 0-201 9 Dante Tiwari. . Referring Provider: Naveed Mcintosh , [address] [place] [address], [address]. tel:[phone] [facility] [address], [id number], tel:[phone] [place] Low back painOth symptoms and signs involving the musculoskelet al systemAbnorma l postureOther abnormalities of gait and mobility 7201 9 Dante Tiwari. . Referring Provider: Naveed Mcintosh , [address] [place] [address], [address]. tel:[phone] [facility] [address], [id number], tel:[phone] [place] Low back painOth symptoms and signs involving the musculoskelet al systemAbnorma l postureOther abnormalities of gait and mobility 5201 9 Rick Mcclellan. . Referring Provider: Naveed Mcintosh , [address] [place] [address], [address]. tel:[phone] Family History Family Member Type Diagnosis Age At Onset No Information Payers Payer name Insurance type Covered libertarian ID Authoriza tion(s) AARP Medicare Complete CI [id number] Social History Type Description Quantity Date Captured [...]
--- OUTSIDE RECORDS SUMMARY | 2024-11-27 17:09 | XMS_ITS ---
Author Name Kim Mcdonough NP Address Unknown Phone tel: Organization Unknown Address Unknown Phone tel: Care Team Providers Care Industrial Technologist Name Role Phone Kim Mcdonough NP Primary Care Provider tel: Shilpi Jones Primary Care Provider tel: ALLERGIES, ADVERSE REACTIONS Data in this section may be excluded or not available. ASSESSMENTS Data in this section may be excluded or not available. SOCIAL HISTORY Description Effective Dates Sex M (Male) VITAL SIGNS Type Value Date Height (Code: 8302-2 ) 71 ( [in_i] ) June Faces Pain Scale (Code: 34682-8 ) 3 - ( ) July 07, 2023 PROBLEMS Data in this section may be excluded or not available. Patient Care Teams * Care Industrial Technologist Role on Team Date Sharonda. Kim Dobbins
--- OUTSIDE RECORDS SUMMARY | 2024-11-27 17:09 | XMS_ITS | Encounter Summary ---
Author Organization [facility] Address [address] [place] [address] Care Team Providers Care Jira Administrator Name Role Phone Naveed Mcintosh MD Primary Care Prov ider Encounter Details Date Type Department Care Team (Late st Contact Info) Description 06/30/2023 Telephone [facility] Medical Group Cardiology [address] [facility] [address] [facility] [address] [place] [id number] Salas Clemons MD [address] [facility] [address] [facility] [address] [place] [address] Social History Tobacco Use Types Packs/Day Years Used Date Smoking Tobacco: Former Cigarettes 1.5 65 0 03/12/1957 - 09/19/2018 Smokeless Tobacco: Never Alcohol Use Standard Drinks/Week Comments Not Currently 0 (1 standard drink = 0.6 oz pur e alcohol) Sex and Gender Information Value Date Recorded Sex Assigned at Not on file Legal Sex Male 9:37 AM HEAD AUTOMATIC SAWYER Gender Identity Male 11/26/2019 3:10 PM HEAD AUTOMATIC SAWYER Sexual Orientation Not on file documented as of this encounter Miscellaneous Notes * Telephone Encounter - Constanza Paul MA - 06/30/2023 2:01 PM CDT LM for patient that he should contact his PCP or urologist if he has one. * Telephone Encounter - Marline Baptiste - 06/30/2023 1:13 PM CDT Pt requesting refill for finasteride (PROSCAR) 5 mg tablet [facility] Contact:[phone] documented in this encounter Plan of Treatment Not on file documented as of this encounter Visit Diagnoses Not on filedocumented in this encounter Care Teams Jira Administrator Relationship Specialty Start Date End Date Naveed Mcintosh MD [address] [place] [address] PCP - General Family Medicine 10/07/19 documented as of this encounter
--- OUTSIDE RECORDS SUMMARY | 2024-11-27 17:09 | XMS_ITS ---
Author Name Juan POSEYDanielTaisha Address Unknown Phone tel: Organization Unknown Address Unknown Phone tel: Care Team Providers Care Link Assembler Name Role Phone Taisha Martinez NP Primary Care Provider tel: Shilpi Jones Primary Care Provider tel: ALLERGIES, ADVERSE REACTIONS Data in this section may be excluded or not available. ASSESSMENTS Data in this section may be excluded or not available. SOCIAL HISTORY Description Effective Dates Sex M (Male) VITAL SIGNS Type Value Date Height (Code: 8302-2 ) 71 ( [in_i] ) March 02, 2024 Weight (Code: 62779-6 ) 187 ( [lb_av] ) February 212023 BP (Systolic) (Code: 8480-6 ) 118 ( mm[Hg] ) A pril 2023 BP (Diastolic) (Code: 8462-4 ) 64 ( mm[Hg] ) March 02, 2024 Pulse (Code: 8867-4 ) 80 ( /min ) March 02, 2024 Oxygen Saturation (Code: 71431-4 ) 96 ( % ) March 02, 2024 Inhaled Oxygen Concentration (Code: 3150-0 ) 21 ( % ) March 02, 2024 BMI (Code: 81804-3 ) 26.1 ( kg/m2 ) March 02, 2024 Respiration (Code: 9279-1 ) 20 ( /min ) Apr 2023 Faces Pain Scale (Code: 96044-5 ) 0 - No Hurt ( ) March 02, 2024 PROBLEMS Data in this section may be excluded or not available. FUNCTIONAL STATUS Functional Condition Date Status Feeding: Independent March 02, 2024 Active Bathing: Independent (or in shower) March 02 Active Grooming: Independent face/h air/teeth/ shaving (implements provided) March 02, 2024 Active Dressing: Independent (including buttons, zips, laces, etc.) March 02, 2024 Active Bowels: Continent March 02, 2024 Active Bladder: Continent March 02, 2024 Active Toilet use: Independent (on and off, dressing, w iping) March 02, 2024 Active Transfers (bed to chair and back): Independent A pril 2023 Active Mobility (on level surfaces) : Independent (but may use any aid; for example, stick) >50 yards March 02, 2024 Active Stairs: Independent March 02, 2024 Active Total score: 100 March 02, 2024 Active COGNITIVE STATUS Condition Date Status Normal March 02, 2024 Active Patient Care Teams * Care Link Assembler Role on Team Date Varady. Taisha Dobbins
--- OUTSIDE RECORDS SUMMARY | 2024-11-27 17:09 | XMS_ITS | Encounter Summary ---
Author Organization [facility] Address [address] [facility] [address] [place] [address] Care Team Providers Care Rn Perioperative Name Role Phone Naveed Mcintosh MD Primary Care Prov ider Reason for Visit * Reason Comments Coronary Artery Disease 6 month follow u p. * Consultation (Routine) - Closed Specialty Diagnoses / Procedures Referred By Contac t Referred To Contact Cardiology Diagnoses Essential hypertension, malignant Salas Clemons MD [address] [address] Phone: tel: fax: Salas Clemons MD [address] [facility] [address] [address] Phone: tel: fax: Referral ID Status Reason Start Date Expiration Date V isits Requested Visits Authorized [id number] Closed Specialty Services Required 03/02/2023 04/03/2024 1 1 Encounter Details Date Type Department Care Team (Late st Contact Info) Description 03/03/2023 2:15 PM CDT Office Visit [facility] Cardiology [address] [phone] Salas Clemons MD [address] [place] [address] Coronary artery disease involving [place] coronary artery of [place] heart without angina pectoris (Primary Dx); Ischemic cardiomyopathy; Essential hypertension, malignant Social History Tobacco Use Types Packs/Day Years Used Date Smoking Tobacco: Former Cigarettes 1.5 65 0 03/12/1956 - 09/19/2018 Smokeless Tobacco: Never Tobacco Cessation:Counseling Given: Not Answered Alcohol Use Standard Drinks/Week Comments Not Currently 0 (1 standard drink = 0.6 oz pur e alcohol) Sex and Gender Information Value Date Recorded Sex Assigned at Not on file 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 Gender Identity Male 11/26/2019 3:10 PM FIRE WATCHER Sexual Orientation Not on file documented as of this encounter Last Filed Vital Signs Vital Sign Reading Time Taken Comments Blood Pressure 132/72 03/03/2023 2:14 PM CDT Pulse 94 03/03/2023 2:14 PM CDT Temperature - - Respiratory Rate - - Oxygen Saturation 91% 03/03/2023 2:14 PM CDT Inhaled Oxygen Concentration - - Weight 93 kg (205 lb) 03/03/2023 2:14 PM CDT Height 180.3 cm (5' 11 ) 03/03/2023 2:14 PM CDT Body Mass Index 28.59 03/03/2023 2:14 PM CDT documented in this encounter Progress Notes * Salas Clemons MD - 03/03/2023 2:15 PM CDT [facility] 03/03/2023 Russell Morse is a 77 y.o. male who presents for follow up of coronary artery disease. This is a patient who presented to [facility] in August of 2019 with ischemic chest pain. He was brought to the cardiac catheterization lab after a small troponin rise and found to have severe single-vessel coronary artery disease with subtotal occlusion of the mid LAD. I treated him with 2 Orsiro drug-eluting stents with a good anatomical result. His left ventricular ejection fraction was significantly depressed at the time of his catheterization with an EF of 25-30%. His 1st 2 follow-up visits werewith the nurse practitioner and he was doing well. An echo done prior to this office visit demonstrates a very nice recovery of his ejection fraction is 55-60% there is still some apical hypokinesis.After 0 1 year following the above described intervention dual anti- platelet therapy was discontinued. He was hospitalized back in September of 2021 shortness of breath related to coronavirus. He presents today for 6 month follow-up appointment. He indicates that he has not had any obvious cardiac problems he was seriously ill last month and was hospitalized at [place]. I was not asked tosee him by his description it sounds like he might have had viral encephalitis. After the hospital stay he was sent to rehab for a while he is now back home and is still recovering from that. REVIEW OF SYSTEMS General ROS: negative for - chills, fatigue, fever, malaise, night sweats, weight gain or weight loss Psychological ROS: negative for - anxiety, depression, memory difficulties or sleep disturbances Ophthalmic ROS: negative for - blurry vision, decreased vision, loss of vision or scotomata ENT ROS: negative for - epistaxis, headaches, hearing change, nasal congestion, nasal discharge, sore throat, vertigo or visual changes Hematological and Lymphatic ROS: negative for - bleeding problems, blood clots, bruising, fatigue or weight loss Endocrine ROS: negative for - hot flashes, palpitations, polydipsia/polyuria or unexpected weight changes Respiratory ROS: negative for - cough, hemoptysis, orthopnea, shortness of breath, tachypnea or wheezing Cardiovascular ROS: negative for - chest pain, dyspnea on exertion, edema, irregular heartbeat, loss of consciousness, murmur, orthopnea, palpitations, paroxysmal nocturnal dyspnea, rapid heart rate or shortness of breath Gastrointestinal ROS: negative for - abdominal pain, appetite loss, blood in stools, constipation, diarrhea, gas/bloating, heartburn, hematemesis, melena or nausea/vomiting Genito-Urinary ROS: negative for - dysuria, erectile dysfunction or hematuria Musculoskeletal ROS: negative for - joint pain, muscle pain or muscular weakness Dermatological ROS: negative for dry skin, eczema, pruritus and rash HOME MEDICATIONS Current Outpatient Medications: ??? albuterol HFA (PROVENTIL HFA,VENTOLIN HFA,PROAIR HFA) 90 mcg/actuation inhaler, INHALE 2 PUFFS EVERY 4-6 HOURS, Disp: , Rfl: ??? aspirin 81 mg enteric coated tablet, Take 1 tablet (81 mg total) by mouth daily, Disp: , Rfl: ??? atorvastatin (LIPITOR) 80 mg tablet, TAKE 1 TABLET BY MOUTH EVERY DAY, Disp: 90 tablet, Rfl: 1 ??? buPROPion SR (ZYBAN) 150 mg 12 hr tablet, Take 1 tablet (150 mg total) by mouth 2 (two) times aday, Disp: , Rfl: 3 ??? carvediloL (COREG) 12.5 mg tablet, TAKE 1 TABLET BY MOUTH TWICE DAILY, Disp: 180 tablet, Rfl: 2 ??? esomeprazole DR (NexIUM) 20 mg capsule, Take 2 capsules (40 mg total) by mouth daily before breakfast, Disp: , Rfl: ??? finasteride (PROSCAR) 5 mg tablet, Take 1 tablet (5 mg total) by mouth daily, Disp: , Rfl: 2 ??? levoFLOXacin (LEVAQUIN) 500 mg tablet, Take 1 tablet (500 mg total) by mouth daily, Disp: , Rfl: ??? losartan (COZAAR) 50 mg tablet, TAKE 1 TABLET BY MOUTH EVERY DAY, Disp: 90 tablet, Rfl: 1 ??? sertraline (ZOLOFT) 50 mg tablet, Take 1 tablet (50 mg total) by mouth daily, Disp: , Rfl: 0 ??? SPIRIVA RESPIMAT 2.5 mcg/actuation inhaler, INHALE 2 PUFFS BY MOUTH ONCE DAILY, Disp: , Rfl: 3 ??? SYMBICORT 160-4.5 mcg/actuation inhaler, INHALATION 2 PUFFS TWICE A DAY, Disp: , Rfl: 1 ??? tamsulosin (FLOMAX) 0.4 mg extended release capsule, TAKE ONE CAPSULE BY MOUTH EVERY DAY, Disp:, Rfl: ??? traZODone (DESYREL) 50 mg tablet, Take 1 tablet (50 mg total) by mouth nightly at bedtime, Disp: , Rfl: 1 ??? Linzess 72 mcg capsule, Take by mouth daily, Disp: , Rfl: ??? morphine ER (MS CONTIN) 60 mg 12 hr tablet, Take 60 mg by mouth 2 (two) times a day, Disp: , Rfl: 0 ??? nitroglycerin (NITROSTAT) 0.4 mg SL tablet, Place 1 tablet (0.4 mg total) under the tongue every 5 (five) minutes as needed for chest pain May repeat dose q 5 min, up to 3 doses total, Disp: 100 tablet, Rfl: 0 LABS AND OTHER DIAGNOSTIC TESTS No results found for: CHOL No results found for: HDL No results found for: LDLCALC No results found for: TRIG No results found for: CHOLHDL Lab Results Component Value Date WBC 6.7 10/28/2019 HGB 12.9 (L) 10/28/2019 HCT 37.1 (L) 10/28/2019 MCV 95 10/28/2019 No lab exists for component: LABALBU PHYSICAL EXAM Vitals BP 132/72 (BP Location: Left arm, Patient Position: Sitting) Pulse 94 Ht 180.3 cm (5' 11 ) Wt 93 kg (205 lb) SpO2 91% BMI 28.59 kg/m?? Physical Examination: General appearance - alert, well appearing, and in no distress, oriented to person, place, and time and acyanotic, in no respiratory distress Mental status - affect appropriate to mood Eyes - extraocular eye movements intact, sclera anicteric, no pallor Ears - external earsappear normal, hearing grossly normal bilaterally Nose - normal and patent, no erythema or discharge Mouth - mucous membranes moist, pharynx appears normal, dental hygiene good and tongue normal Neck - supple, no significant neck masses, carotids upstroke normal bilaterally, no bruits, no JVD Chest -breath sounds are tubular in quality and diminished throughout both lung short symmetric air entry, no tachypnea, retractions or cyanosis Heart - normal rate, regular rhythm, normal S1, S2, no murmurs, rubs, clicks or gallops, no JVD Abdomen - soft, nontender, nondistended, no masses or organomegaly bowel sounds normal Neurological - alert, oriented, normal speech, no focal findings or movement disorder noted Musculoskeletal - no joint tenderness, deformity or swelling, no muscular tenderness noted Extremities - peripheral pulses normal, no pedal edema, no clubbing or cyanosis Skin - normal coloration and turgor, no rashes, no suspicious skin lesions noted ASSESSMENT Russell was seen today for coronary artery disease. Diagnoses and all orders for this visit: Coronary artery disease involving [place] coronary artery of [place] heart without angina pectoris Ischemic cardiomyopathy PLAN/RECOMMENDATIONS No change in medical regimen Follow-up in 6 months or p.r.n. Salas Clemons MD documented in this encounter Plan of Treatment Not on file documented as of this encounter Visit Diagnoses Diagnosis Coronary artery disease involving [place] coronary artery of [place] heart without angina pectoris- Primary Ischemic cardiomyopathy Other specified forms of chronic ischemic heart disease Essential hypertension, malignant documented in this encounter Historical Medications * This list may reflect changes made after this encounter. levoFLOXacin (LEVAQUIN) 500 mg tablet Take 1 tablet (500 mg total) by mouth daily 02/26/2023 09/17/2023 added in this encounter Orders Outpatient Referral Count Last Ordered Date Fir st Ordered Date AMB REFERRAL TO CARDIOLOGY 1 03/05/2023 documented in this encounter Care Teams Rn Perioperative Relationship Specialty Start Date End Date Naveed Mcintosh MD [address] [place] [address] PCP - General Family Medicine 10/07/19 documented as of this encounter
--- OUTSIDE RECORDS SUMMARY | 2024-11-27 17:09 | XMS_ITS ---
Author Name Juan POSEYDanielTaisha Address Unknown Phone tel: Organization Unknown Address Unknown Phone tel: Care Team Providers Care Collar Packer Name Role Phone Taisha Martinez NP Primary Care Provider tel: Shilpi Jones Primary Care Provider tel: ALLERGIES, ADVERSE REACTIONS Data in this section may be excluded or not available. ASSESSMENTS Data in this section may be excluded or not available. SOCIAL HISTORY Description Effective Dates Sex M (Male) VITAL SIGNS Type Value Date Height (Code: 8302-2 ) 71 ( [in_i] ) June 26, 2023 Weight (Code: 55277-6 ) 198 ( [lb_av] ) June 26, 2023 BP (Systolic) (Code: 8480-6 ) 107 ( mm[Hg] ) A ugust 2022 BP (Diastolic) (Code: 8462-4 ) 61 ( mm[Hg] ) June 26, 2023 Pulse (Code: 8867-4 ) 78 ( /min ) June 26, 2023 Oxygen Saturation (Code: 10443-9 ) 91 ( % ) June 26, 2023 Inhaled Oxygen Concentration (Code: 3150-0 ) 21 ( % ) June 26, 2023 BMI (Code: 78332-7 ) 27.6 ( kg/m2 ) June 26, 2023 Temperature (Code: 8310-5 ) 97.2 ( [degF] ) Jun ust 2022 Respiration (Code: 9279-1 ) 18 ( /min ) Junu st 2022 Faces Pain Scale (Code: 84202-2 ) 0 - No Hurt ( ) June 26, 2023 PROBLEMS Data in this section may be excluded or not available. FUNCTIONAL STATUS Functional Condition Date Status Feeding: Independent June 26, 2023 Active Bathing: Independent (or in shower) June 26 Active Grooming: Independent face/h air/teeth/ shaving (implements provided) June 26, 2023 Active Dressing: Independent (including buttons, zips, laces, etc.) June 26, 2023 Active Bowels: Continent June 26, 2023 Active Bladder: Continent June 26, 2023 Active Toilet use: Independent (on and off, dressing, w iping) June 26, 2023 Active Transfers (bed to chair and back): Independent A [facility] 2022 Active Mobility (on level surfaces) : Independent (but may use any aid; for example, stick) >50 yards June 26, 2023 Active Stairs: Independent June 26, 2023 Active Total score: 100 June 26, 2023 Active COGNITIVE STATUS Condition Date Status Normal June 26, 2023 Active Patient Care Teams * Care Collar Packer Role on Team Date Varady. Taisha Jones. Shilpi
--- OUTSIDE RECORDS SUMMARY | 2024-11-27 17:09 | XMS_ITS | Encounter Summary ---
Author Organization [facility] Address [address] [address] Care Team Providers Care Merchandise Flow Associate Name Role Phone Naveed Mcintosh MD Primary Care Prov ider Reason for Referral * Consultation (Routine) - Closed Specialty Diagnoses / Procedures Referred By Eliana lyon Referred To Contact Cardiology Diagnoses Essential hypertension, malignant Salas Clemons MD [address] [place] [address] Phone: tel: fax: Salas Clemons MD [address] [place] [address] Phone: tel: fax: Referral ID Status Reason Start Date Expiration Date V isits Requested Visits Authorized [id number] Closed Specialty Services Required 03/02/2023 04/03/2024 1 1 Question Answer Please select the performing region: [facility] [[id number]] Please select the performing department: [facility] [[id number]] To provider: SALAS CLEMONS [[id number]] # of visits: 1 Encounter Details Date Type Department Care Team (Late st Contact Info) Description 03/05/2023 Orders Only [facility] Cardiology [address] [place] [address] Salas Clemons MD [address] [place] [address] Essential hypertension, malignant (Primary Dx) Social History Tobacco Use Types Packs/Day Years Used Date Smoking Tobacco: Former Cigarettes 1.5 65 0 03/12/1956 - 09/19/2018 Smokeless Tobacco: Never Alcohol Use Standard Drinks/Week Comments Not Currently 0 (1 standard drink = 0.6 oz pur e alcohol) Sex and Gender Information Value Date Recorded Sex Assigned at Not on file 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 Gender Identity Male 11/26/2019 3:10 PM WATER FILTERER Sexual Orientation Not on file documented as of this encounter Plan of Treatment Scheduled Referrals Name Type Priority Associated Diagnoses Order Schedule Ambulatory referral to Cardiology Outpatient Referral Routine Essential hypertension, malignant Expected: 03/19/2023 (Approximate), Expires: 03/05/2024 documented as of this encounter Visit Diagnoses Diagnosis Essential hypertension, malignant- Primary documented in this encounter Care Teams Merchandise Flow Associate Relationship Specialty Start Date End Date Naveed Mcintosh MD [address] [place] [address] PCP - General Family Medicine 10/07/19 documented as of this encounter
--- OUTSIDE RECORDS SUMMARY | 2024-11-27 17:09 | XMS_ITS | Encounter Summary ---
Author Organization [facility] Address [address] [facility] [address] [place] [address] Care Team Providers Care Deputy General Counsel Name Role Phone Naveed Mcintosh MD Primary Care Prov ider Reason for Visit * Reason Comments Coronary Artery Disease 6 month fu Encounter Details Date Type Department Care Team (Latest Contact Info) Description 09/02/2022 1:45 PM CDT Office Visit [facility] Cardiology [address] [phone] Salas Clemons MD [address] [address] Coronary artery disease involving [place] coronary artery of [place] heart without angina pectoris (Primary Dx); Ischemic cardiomyopathy Social History Tobacco Use Types Packs/Day Years Used Date Smoking Tobacco: Former Cigarettes 1.5 65 0 03/12/1956 - 09/19/2018 Smokeless Tobacco: Never Tobacco Cessation:Counseling Given: Not Answered Alcohol Use Standard Drinks/Week Comments Not Currently 0 (1 standard drink = 0.6 oz pur e alcohol) Sex and Gender Information Value Date Recorded Sex Assigned at Not on file 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 Gender Identity Male 11/26/2019 3:10 PM RADIO ELECTRICIAN Sexual Orientation Not on file documented as of this encounter Last Filed Vital Signs Vital Sign Reading Time Taken Comments Blood Pressure 116/70 09/02/2022 1:44 PM CDT Pulse 64 09/02/2022 1:44 PM CDT Temperature - - Respiratory Rate - - Oxygen Saturation 94% 09/02/2022 1:44 PM CDT Inhaled Oxygen Concentration - - Weight 93.9 kg (207 lb) 09/02/2022 1:44 PM CDT Height 180.3 cm (5' 11 ) 09/02/2022 1:44 PM CDT Body Mass Index 28.87 09/02/2022 1:44 PM CDT documented in this encounter Progress Notes * Salas Clemons MD - 09/02/2022 1:45 PM CDT [facility] 09/02/2022 Russell Morse is a 77 y.o. male who presents for follow up of coronary artery disease. This is a patient who presented to [facility] in August of 2019 with ischemic chest [...] of breath related to coronavirus. He presents to the office today for scheduled appointment. He is doing very well and describes no cardiac problems or concerns. Denies any chest pain shortness of breath orthopnea or PND. REVIEW OF SYSTEMS General ROS: negative for [...] and rash HOME MEDICATIONS Current Outpatient Medications: albuterol HFA (PROVENTIL HFA,VENTOLIN HFA,PROAIR HFA) 90 mcg/actuation inhaler, INHALE 2 PUFFS EVERY 4-6 HOURS, Disp: , Rfl: aspirin 81 mg enteric coated tablet, Take 81 mg by mouth daily, Disp: , Rfl: atorvastatin (LIPITOR) 80 mg tablet, TAKE 1 TABLET BY MOUTH EVERY DAY, Disp: 90 tablet, Rfl: 1 buPROPion SR (ZYBAN) 150 mg 12 hr tablet, Take 150 mg by mouth 2 (two) times a day, Disp: , Rfl: 3 carvediloL (COREG) 12.5 mg tablet, TAKE 1 TABLET BY MOUTH TWICE A DAY WITH FOOD, Disp: 180 tablet, Rfl: 2 docusate sodium (COLACE) 100 mg capsule, Take 100 mg by mouth 2 times daily, Disp: , Rfl: esomeprazole DR (NexIUM) 20 mg capsule, Take 40 mg by mouth daily before breakfast, Disp: , Rfl: finasteride (PROSCAR) 5 mg tablet, Take 5 mg by mouth daily, Disp: , Rfl: 2 Linzess 72 mcg capsule, Take by mouth daily, Disp: , Rfl: losartan (COZAAR) 50 mg tablet, TAKE 1 TABLET BY MOUTH EVERY DAY, Disp: 90 tablet, Rfl: 2 morphine ER (MS CONTIN) 60 mg 12 hr tablet, Take 60 mg by mouth 2 (two) times a day, Disp: , Rfl: 0 nitroglycerin (NITROSTAT) 0.4 mg SL tablet, Place 1 tablet (0.4 mg total) under the tongue every 5 (five) minutes as needed for chest pain May repeat dose q 5 min, up to 3 doses total, Disp: 100 tablet, Rfl: 0 omega 6-mhc-crb-fish oil 1,000 mg (120 mg-180 mg) capsule, Take by mouth, Disp: , Rfl: sertraline (ZOLOFT) 50 mg tablet, Take 50 mg by mouth daily, Disp: , Rfl: 0 SPIRIVA RESPIMAT 2.5 mcg/actuation inhaler, INHALE 2 PUFFS BY MOUTH ONCE DAILY, Disp: , Rfl: 3 SYMBICORT 160-4.5 mcg/actuation inhaler, INHALATION 2 PUFFS TWICE A DAY, Disp: , Rfl: 1 tamsulosin (FLOMAX) 0.4 mg extended release capsule, TAKE ONE CAPSULE BY MOUTH EVERY DAY, Disp: , Rfl: traZODone (DESYREL) 50 mg tablet, Take 50 mg by mouth nightly at bedtime, Disp: , Rfl: 1 LABS AND OTHER DIAGNOSTIC TESTS No results found for: CHOL No results found for: HDL No results found for: LDLCALC No results found for: TRIG No results found for: CHOLHDL Lab Results Component Value Date WBC 6.7 10/28/2019 HGB 12.9 (L) 10/28/2019 HCT 37.1 (L) 10/28/2019 MCV 95 10/28/2019 No lab exists for component: LABALBU PHYSICAL EXAM There were no vitals taken for this visit. Physical Examination: General appearance - alert, well [...] for this visit: Coronary artery disease involving [place] coronary artery of [place] heart without angina pectoris Ischemic cardiomyopathy PLAN/RECOMMENDATIONS No change in medical regimen Follow-up in 6 months or p.r.n. Salas Clemons MD documented in this encounter Plan of Treatment Not on file documented as of this encounter Visit Diagnoses Diagnosis Coronary artery disease involving [place] coronary artery of [place] heart without angina pectoris- Primary Ischemic cardiomyopathy Other specified forms of chronic ischemic heart disease documented in this encounter Discontinued Medications Medication Sig Discontinue Reason Start Date End Da te omega 2-tdd-sdh-fish oil 1,000 mg (120 mg-180 mg) capsule Take by mouth Therapy completed 09/02/2022 docusate sodium (COLACE) 100 mg capsule Take 100 mg by mouth 2 times daily Therapy completed 09/02/2022 documented as of this encounter Care Teams Deputy General Counsel Relationship Specialty Start Date End Date Naveed Mcintosh MD [address] [place] [address] PCP - General Family Medicine 10/07/19 documented as of this encounter
--- OUTSIDE RECORDS SUMMARY | 2024-11-27 17:09 | XMS_ITS ---
Author Name Juan POSEY Taisha Address Unknown Phone tel: Organization Unknown Address Unknown Phone tel: Care Team Providers Care Plumbing Drafter Name Role Phone Taisha Martinez NP Primary Care Provider tel: Rena Doe Primary Care Provider tel: ALLERGIES, ADVERSE REACTIONS Substance Reaction Severity Status No Known Drug Allergies, [Code: ] Unassig todd Active ASSESSMENTS Data in this section may be excluded or not available. SOCIAL HISTORY Description Effective Dates Sex M (Male) VITAL SIGNS Type Value Date Height (Code: 8302-2 ) 71 ( [in_i] ) November 09, 2024 Weight (Code: 39484-7 ) 185 ( [lb_av] ) November 09, 2024 BP (Systolic) (Code: 8480-6 ) 128 ( mm[Hg] ) De cember 2023 BP (Diastolic) (Code: 8462-4 ) 74 ( mm[Hg] ) D ecember 2023 Pulse (Code: 8867-4 ) 74 ( /min ) October 232023 Oxygen Saturation (Code: 78361-9 ) 97 ( % ) November 09, 2024 Inhaled Oxygen Concentration (Code: 3150-0 ) 21 ( % ) November 09, 2024 BMI (Code: 68670-3 ) 25.8 ( kg/m2 ) October Respiration (Code: 9279-1 ) 18 ( /min ) Dece mb2023 Faces Pain Scale (Code: 91234-2 ) 0 - No Hurt ( ) November 09, 2024 PROBLEMS Data in this section may be excluded or not available. FUNCTIONAL STATUS Functional Condition Date Status Feeding: Independent November 09, 2024 Active Bathing: Independent (or in shower) November 09, 2024 Active Grooming: Independent face/h air/teeth/ shaving (implements provided) November 09, 2024 Active Dressing: Independent (including buttons, zips, laces, etc.) November 09, 2024 Active Bowels: Continent November 09, 2024 Active Bladder: Continent November 09, 2024 Active Toilet use: Independent (on and off, dressing, w iping) November 09, 2024 Active Transfers (bed to chair and back): Independent D ec2023 Active Mobility (on level surfaces) : Independent (but may use any aid; for example, stick) >50 yards November 09, 2024 Active Stairs: Unable November 09, 2024 Active Total score: 90 November 09, 2024 Active Patient Care Teams * Care Plumbing Drafter Role on Team Date Varady. Taisha Doe. Rena
--- OUTSIDE RECORDS SUMMARY | 2024-11-27 17:09 | XMS_ITS ---
Author Name Anne-Marie Castellon NP Address Unknown Phone tel: Organization Unknown Address Unknown Phone tel: Care Team Providers Care Occ Ther Name Role Phone Anne-Marie Castellon NP Primary Care Provider tel: Shilpi Jones Primary Care Provider tel: ALLERGIES, ADVERSE REACTIONS Data in this section may be excluded or not available. ASSESSMENTS Data in this section may be excluded or not available. SOCIAL HISTORY Description Effective Dates Sex M (Male) PROBLEMS Data in this section may be excluded or not available. Patient Care Teams * Care Occ Ther Role on Team Date Ravinder. Anne-Marie Dobbins
--- OUTSIDE RECORDS SUMMARY | 2024-11-27 17:09 | XMS_ITS | Referral Summary ---
Author Organization [facility] [address] Address [address] [place] [address] Care Team Providers Care Computational Chemist Name Role Phone Naveed Mcintosh MD Primary Care Prov ider Allergies Active Allergy Reactions Criticality Noted Date Comments Pollen Extracts Unknown 12/01/2019 Levonorgestrel-Ethinyl Estrad Unknown 2019 Medications aspirin 81 mg enteric coated tablet Take 1 tablet (81 mg total) by mouth daily Active albuterol HFA (PROVENTIL HFA,VENTOLIN HFA,PROAIR HFA) 90 mcg/actuation inhaler INHALE 2 PUFFS EVERY 4-6 HOURS 9 Active buPROPion SR (ZYBAN) 150 mg 12 hr tablet Take 1 tablet (150 mg total) by mouth 2 (two) times a day [address] (NexIUM) 20 mg capsule Take 2 capsules (40 mg total) by mouth daily before breakfast Active finasteride (PROSCAR) 5 mg tablet Take 1 tablet (5 mg total) by mouth daily 2 9 Active morphine ER (MS CONTIN) 30 mg 12 hr tablet Take 2 tablets (60 mg total) by mouth 2 (two) times a day 0 9 Active sertraline (ZOLOFT) 50 mg tablet Take 1 tablet (50 mg total) by mouth daily 0 9 Active tamsulosin (FLOMAX) 0.4 mg extended release capsule TAKE ONE CAPSULE BY MOUTH EVERY DAY 9 Active traZODone (DESYREL) 50 mg tablet Take 1 tablet (50 mg total) by mouth nightly at bedtime 1 9 Active nitroglycerin (NITROSTAT) 0.[address] 1 tablet (0.4 mg total) under the tongue every 5 (five) minutes as needed for chest pain May repeat dose q 5 min, up to 3 doses total 100 tablet 0 Active atorvastatin (LIPITOR) 80 mg tabletIndicatio ns:Coronary artery disease involving crow coronary artery of crow heart without angina pectoris TAKE 1 TABLET BY MOUTH EVERY DAY 90 tablet 1 2 Active Breztri Aerosphere 160-9-4.8 mcg/actuation HFA aerosol inhaler INHALE 2 PUFFS BY MOUTH EVERY MORNING AND EVENING THEN RINSE AND SPIT AFTER USE 3 Active linaCLOtide (LINZESS) 290 mcg capsule 1 capsule (290 mcg total) Active baclofen (LIORESAL) 10 mg tablet Take 1 tablet (10 mg total) by mouth 2 (two) times a day 4 Active benzonatate (TESSALON) 200 mg capsule TAKE 1 CAPSULE BY MOUTH THREE TIMES DAILY NEEDED FOR COUGH 4 Active fenofibrate (TRIGLIDE) 160 mg tablet Take 1 tablet (160 mg total) by mouth daily 4 Active furosemide (LASIX) 40 mg tablet Take 1 tablet (40 mg total) by mouth daily 4 Active sulindac (CLINORIL) 200 mg tablet Take 1 tablet (200 mg total) by mouth 2 (two) times a day 4 Active losartan (COZAAR) 25 mg tabletIndicatio ns:Coronary artery disease involving [place] coronary artery of crow heart without angina pectoris Take 1 tablet (25 mg total) by mouth daily 90 tablet 3 4 05/13/20 25 Active carvediloL (COREG) 12.5 mg tablet TAKE 1 TABLET BY MOUTH TWICE DAILY 180 tablet 2 Active Active Problems Problem Noted Date Diagnosed Date Coronary artery disease invo lving crow coronary artery of crow heart without angina pectoris 10/28/2019 Ischemic cardiomyopathy 10/28/2019 Spinal stenosis 09/26/2015 Pain of right lower extremity 09/26/2015 Notalgia 09/25/2015 Social History Tobacco Use Types Packs/Day Years Used Date Smoking Tobacco: Former Cigarettes 1.5 65 0 03/12/1957 - 09/19/2018 Smokeless Tobacco: Never Tobacco Cessation:Counseling Given: Not Answered Comments:Quit 08/2019 Alcohol Use Standard Drinks/Week Comments Not Currently 0 (1 standard drink = 0.6 oz pur e alcohol) Personal Safety Answer Date Recorded Getting School Help Needed Not on file 12/11 Sex and Gender Information Value Date Recorded Sex Assigned at Not on file 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 Gender Identity Male 11/26/2019 3:10 PM CUSTOMER ENGAGEMENT ANALYST Sexual Orientation Not on file Last Filed Vital Signs Vital Sign Reading Time Taken Comments Blood Pressure 96/48 05/13/2024 11:55 AM CDT Pulse 70 05/13/2024 11:55 AM CDT Temperature - - Respiratory Rate - - Oxygen Saturation 89% 05/13/2024 11:38 AM CDT Inhaled Oxygen Concentration - - Weight 86.2 kg (190 lb) 05/13/2024 11:38 AM CDT Height 180.3 cm (5' 11 ) 05/13/2024 11:38 AM CDT Body Mass Index 26.5 05/13/2024 11:38 AM CDT Plan of Treatment Not on file Insurance MEDICARE SOLUTIONS MEDICARE SOLUTIONS IDPA Care Teams Computational Chemist Relationship Specialty Start Date End Date Naveed Mcintosh MD [address] [place] [address] PCP - General Family Medicine 10/07/19
--- OUTSIDE RECORDS SUMMARY | 2024-11-27 17:09 | XMS_ITS ---
Author Name Kiara Forte NP Address Unknown Phone tel: Organization Unknown Address Unknown Phone tel: Care Team Providers Care Telemetry Technician Name Role Phone Kristine Forte NP Primary [...] not available. Patient Care Teams * Care Telemetry Technician Role on Team Date Jann. Kristine Dobbins
--- OUTSIDE RECORDS SUMMARY | 2024-11-27 17:09 | XMS_ITS ---
Author Name Taisha Martinez NP Address Unknown Phone tel: Organization Unknown Address Unknown Phone tel: Care Team Providers Care Nozzle Worker Name Role Phone Taisha Martinez NP Primary Care Provider tel: Shilpi Jones Primary Care Provider tel: ALLERGIES, ADVERSE REACTIONS Data in this section may be excluded or not available. ASSESSMENTS Data in this section may be excluded or not available. SOCIAL HISTORY Description Effective Dates Sex M (Male) VITAL SIGNS Type Value Date Height (Code: 8302-2 ) 71 ( [in_i] ) August 10, 2023 Weight (Code: 32772-4 ) 196 ( [lb_av] ) Septemb er 2022 BP (Systolic) (Code: 8480-6 ) 125 ( mm[Hg] ) S eptember 2022 BP (Diastolic) (Code: 8462-4 ) 50 ( mm[Hg] ) August 10, 2023 Pulse (Code: 8867-4 ) 68 ( /min ) August 10, 2023 Oxygen Saturation (Code: 89573-1 ) 93 ( % ) August 10, 2023 Inhaled Oxygen Concentration (Code: 3150-0 ) 21 ( % ) August 10, 2023 BMI (Code: 91891-0 ) 27.3 ( kg/m2 ) August 10, 2023 Respiration (Code: 9279-1 ) 18 ( /min ) Sep tember 2022 Faces Pain Scale (Code: 02283-1 ) 0 - No Hurt ( ) August 10, 2023 PROBLEMS Data in this section may be excluded or not available. Patient Care Teams * Care Nozzle Worker Role on Team Date Juan. Taisha Dobbins
--- OUTSIDE RECORDS SUMMARY | 2024-11-27 17:09 | XMS_ITS ---
Author Name Boy Chisholm NP Address Unknown Phone tel: Organization Unknown Address Unknown Phone tel: Care Team Providers Care Interlocker Maintainer Name Role Phone Boy Chisholm NP Primary Care Provider tel: Rena Doe Primary Care Provider tel: ALLERGIES, ADVERSE REACTIONS Substance Reaction Severity Status No Known Drug Allergies, [Code: ] Unassig todd Active ASSESSMENTS Data in this section may be excluded or not available. SOCIAL HISTORY Description Effective Dates Sex M (Male) VITAL SIGNS Type Value Date Height (Code: 8302-2 ) 71 ( [in_i] ) August 03, 2024 Weight (Code: 03699-0 ) 185 ( [lb_av] ) Septembe r 2023 BP (Systolic) (Code: 8480-6 ) 126 ( mm[Hg] ) Se ptember 2023 BP (Diastolic) (Code: 8462-4 ) 60 ( mm[Hg] ) August 03, 2024 Pulse (Code: 8867-4 ) 72 ( /min ) August 03, 2024 Oxygen Saturation (Code: 05040-5 ) 96 ( % ) August 03, 2024 Inhaled Oxygen Concentration (Code: 3150-0 ) 32 ( % ) August 03, 2024 BMI (Code: 39175-8 ) 25.8 ( kg/m2 ) July 242023 Temperature (Code: 8310-5 ) 97.5 ( [degF] ) Sep tember 2023 Respiration (Code: 9279-1 ) 18 ( /min ) Sep tember 2023 Faces Pain Scale (Code: 53143-0 ) 0 - No Hurt ( ) August 03, 2024 PROBLEMS Data in this section may be excluded or not available. Patient Care Teams * Care Interlocker Maintainer Role on Team Date Kathrine. Boy Doe. Rena
--- OUTSIDE RECORDS SUMMARY | 2024-11-27 17:09 | XMS_ITS ---
Author Name Kiara Forte NP Address Unknown Phone tel: Organization Unknown Address Unknown Phone tel: Care Team Providers Care Php Developer Name Role Phone Kristine Forte NP Primary [...] not available. Patient Care Teams * Care Php Developer Role on Team Date Jann. Kristine Dobbins
--- OUTSIDE RECORDS SUMMARY | 2024-11-27 17:09 | XMS_ITS ---
Author Name Kathrine POSEY, Boy Address Unknown Phone tel: Organization Unknown Address Unknown Phone tel: Care Team Providers Care Mounter Smoking Pipe Name Role Phone Kathrine POSEY, Boy Primary Care Provider tel: Rena Doe Primary Care Provider tel: ALLERGIES, ADVERSE REACTIONS Substance Reaction Severity Status No Known Drug Allergies, [Code: ] Unassig todd Active ASSESSMENTS Data in this section may be excluded or not available. SOCIAL HISTORY Description Effective Dates Sex M (Male) VITAL SIGNS Type Value Date Height (Code: 8302-2 ) 71 ( [in_i] ) October 05, 2024 Weight (Code: 44851-7 ) 185 ( [lb_av] ) October 05, 2024 BP (Systolic) (Code: 8480-6 ) 138 ( mm[Hg] ) No vem2023 BP (Diastolic) (Code: 8462-4 ) 62 ( mm[Hg] ) October 05, 2024 Pulse (Code: 8867-4 ) 84 ( /min ) October 05, 2024 Oxygen Saturation (Code: 78941-8 ) 94 ( % ) October 05, 2024 Inhaled Oxygen Concentration (Code: 3150-0 ) 32 ( % ) October 05, 2024 BMI (Code: 06212-0 ) 25.8 ( kg/m2 ) September Temperature (Code: 8310-5 ) 98.3 ( [degF] ) Sep Respiration (Code: 9279-1 ) 16 ( /min ) Sep Faces Pain Scale (Code: 76344-7 ) 0 - No Hurt ( ) October 05, 2024 PROBLEMS Data in this section may be excluded or not available. FUNCTIONAL STATUS Functional Condition Date Status Feeding: Independent October 05, 2024 Active Bathing: Independent (or in shower) October 05, 2024 Active Grooming: Independent face/h air/teeth/ shaving (implements provided) October 05, 2024 Active Dressing: Independent (including buttons, zips, laces, etc.) October 05, 2024 Active Bowels: Continent October 05, 2024 Active Bladder: Continent October 05, 2024 Active Toilet use: Independent (on and off, dressing, w iping) October 05, 2024 Active Transfers (bed to chair and back): Independent N ov2023 Active Mobility (on level surfaces) : Independent (but may use any aid; for example, stick) >50 yards October 05, 2024 Active Stairs: Unable October 05, 2024 Active Total score: 90 October 05, 2024 Active COGNITIVE STATUS Condition Date Status Normal October 05, 2024 Active Patient Care Teams * Care Mounter Smoking Pipe Role on Team Date Wessel. Boy Chaes
--- OUTSIDE RECORDS SUMMARY | 2024-11-27 17:09 | XMS_ITS | Encounter Summary ---
Author Organization [facility] Address [address] [place] [address] Care Team Providers Care Small Products Assembler Name Role Phone Naveed Mcintosh MD Primary Care Prov ider Reason for Visit * Reason Comments Follow-up 8 mo Encounter Details Date Type Department Care Team (Late st Contact Info) Description 05/13/2024 11:30 AM CDT Office Visit [facility] [address] [phone] Jazmyn Heránndez NP [address] [facility] [address] [facility] [address] [place], [place] [id number] Ischemic cardiomyopathy; Coronary artery disease involving [place] coronary artery of [place] heart without angina pectoris; Essential hypertension, malignant Social History Tobacco Use [...] on file 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 You can finish the 50 mg tablets by cutting them in half. If chest pain/heart burn continues to happen, especially if Tums stops working, call the office to let me know. documented in this encounter Ordered Prescriptions Prescription Sig Dispense Quantity Refills Last Filled Start Date End Date losartan (COZAAR) 25 mg tabletIndications: Coronary artery disease involving [place] coronary artery of [place] heart without angina pectoris Take 1 tablet (25 mg total) by mouth daily 90 tablet 3 05/13/2024 05/13/2025 documented in this encounter Progress Notes * Jazmyn Hernández NP - 05/13/2024 11:30 AM CDT Images from the original note were not included. [facility] [address] [place] [address] Date of Visit: 05/13/2024 Patient ID: Russell Mosre 1945 Chief Complaint Patient presents with Follow-up 8 mo Russell Morse is a 79 y.o. male who is an established patient of Dr. Clemons with a history of CADcoming to the office for routine follow up. History of Present Illness: Russell Morse is a 79 y.o. male who presents for follow up of coronary artery disease. This is a patient who presented to [facility] in August of 2019 with ischemic chest [...] 2021 shortness of breath related to coronavirus. 03/03/[address] Clemons: He presents today for 6 month follow-up appointment. Heindicates that he has not had any obvious cardiac problems he was seriously ill last month and was hospitalized at [facility]. 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 After the hospital stay he was sent to rehab for a while he is now back home and is still recovering from that. 09/17/2023 office visit with ECONOMICS LECTURER: he is here for routine follow up and denies any concerns. He denies chest pain. His cloth bleaching range back tender (Dr. Gottlieb) who treats him for COPD just prescribed him home oxygen. 05/13/2024 office visit with ECONOMICS LECTURER: He is here for routine follow-up accompanied by his daughter. He feels his shortness of breath is worse in the heat and humidity. He is going to pulmonary rehab 2 days a week, typical systolic BP at those visits around 110. He wears his oxygen continuously 24 hours and sleeps mostly flat on his back without difficulty, he does have a cough at night is bothersome. 2-3 weeks ago he had a few days of feeling heartburn lasted up to 10 minutes, Tums seemed to help but it did remind him a little bit of his heart attack pain. Records that I personally reviewed on the day of this visit include: (the interpretation is outlined in the HPI above) 09/17/2023 office note from myself. I have also reviewed: allergies, current medications, past family history, past medical history, past social history, past surgical history and problem list. 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 CARDIAC CATHETERIZATION CATARACT EXTRACTION 06/2020 COLON SURGERY 05/26 CORONARY ANGIOPLASTY HIP SURGERY Hip Surgery - 1986 (Added by TW Conv) MANDIBLE SURGERY Jaw Surgery - cancer 1986 (Added by TW Conv) SHOULDER SURGERY Shoulder Surgery - Rt 2007 (Added by TW Conv) STOMACH SURGERY Gastric Surgery - 2005 (Added by TW Conv) Social History Tobacco Use Smoking Status Former Current packs/day: 0.00 Average packs/day: 1.5 packs/day for 65.0 years (97.5 ttl pk-yrs) Types: Cigarettes Start date: 03/12/1957 Quit date: 09/19/2018 Years since quittin.6 Smokeless Tobacco Never Tobacco Comments Quit 08/2019 Social History Tobacco Use Smoking status: Former Current packs/day: 0.00 Average packs/day: 1.5 packs/day for 65.0 years (97.5 ttl pk-yrs) Types: Cigarettes Start date: 03/12/1957 Quit date: 09/19/2018 Years since quittin.6 Smokeless tobacco: Never Tobacco comments: Quit 08/2019 Substance and Sexual Activity Drug use: Never Sexual activity: Not Currently Partners: Female control/protection: Other Comment: Pill Alcohol Use: Not on file Family History Problem Relation Age of Onset Cancer Father Family history of malignant neoplasm - (Added by TW Conv) Alcohol abuse Father Cancer Brother Family history of malignant neoplasm - (Added by TW Conv) Diabetes Mother Family history of diabetes mellitus - (Added by TW Conv) Heart disease Mother Family history of cardiac disorder - (Added by TW Conv) Miscarriages / Stillbirths Mother Heart attack Paternal Grandfather COPD Brother COPD Brother Obesity Sister Review of Systems Constitutional: Negative for malaise/fatigue, weight gain and weight loss. Cardiovascular: Positive for chest pain. Negative for leg swelling, near- syncope, orthopnea, palpitations, paroxysmal nocturnal dyspnea and syncope. Respiratory: Positive for cough and shortness of breath. Negative for sleep disturbances due to breathing. Hematologic/Lymphatic: Negative for bleeding problem. Does not bruise/bleed easily. Gastrointestinal: Positive for heartburn. Vital Signs: BP 96/48 (BP Location: Left arm, Patient Position: Sitting) Pulse 70 Ht 180.3 cm (5' 11 ) Wt 86.2 kg (190 lb) SpO2 (!) 89% BMI 26.50 kg/m?? Physical Exam Constitutional: General: He is not in acute distress. Appearance: He is well-developed. Interventions: Nasal cannula in place. Comments: Supplemental oxygen. Seated in a wheelchair HENT: Head: Normocephalic and atraumatic. Eyes: General: No scleral icterus. Conjunctiva/sclera: Conjunctivae normal. Neck: Vascular: No JVD. Trachea: No tracheal deviation. Cardiovascular: Rate and Rhythm: Normal rate and regular rhythm. Heart sounds: Normal heart sounds. Comments: Distant heart tones Pulmonary: Effort: Pulmonary effort is normal. No respiratory distress. Breath sounds: Rhonchi present. Skin: General: Skin is warm and dry. Neurological: Mental Status: He is alert and oriented to person, place, and time. Psychiatric: Mood and Affect: Mood normal. Behavior: Behavior normal. Allergies Allergen Reactions Pollen Extracts Unknown Seasonale (91) [Levonorgestrel-Ethinyl Estrad] Unknown Current Outpatient Medications: albuterol HFA (PROVENTIL HFA,VENTOLIN HFA,PROAIR HFA) 90 mcg/actuation inhaler, INHALE 2 PUFFS EVERY 4-6 HOURS, Disp: , Rfl: aspirin 81 mg enteric coated tablet, Take 1 tablet (81 mg total) by mouth daily, Disp: , Rfl: atorvastatin (LIPITOR) 80 mg tablet, TAKE 1 TABLET BY MOUTH EVERY DAY, Disp: 90 tablet, Rfl: 1 baclofen (LIORESAL) 10 mg tablet, Take 1 tablet (10 mg total) by mouth 2 (two) times a day, Disp: ,Rfl: benzonatate (TESSALON) 200 mg capsule, TAKE 1 CAPSULE BY MOUTH THREE TIMES DAILY NEEDED FOR COUGH, Disp: , Rfl: Brooketri Aerosphere 160-9-4.8 mcg/actuation HFA aerosol inhaler, INHALE 2 PUFFS BY MOUTH EVERY MORNING AND EVENING THEN RINSE AND SPIT AFTER USE, Disp: , Rfl: buPROPion SR (ZYBAN) 150 mg 12 hr tablet, Take 1 tablet (150 mg total) by mouth 2 (two) times a day, Disp: , Rfl: 3 carvediloL (COREG) 12.5 mg tablet, TAKE 1 TABLET BY MOUTH TWICE DAILY, Disp: 180 tablet, Rfl: [address] (NexIUM) 20 mg capsule, Take 2 capsules (40 mg total) by mouth daily before breakfast, Disp: , Rfl: fenofibrate (TRIGLIDE) 160 mg tablet, Take 1 tablet (160 mg total) by mouth daily, Disp: , Rfl: finasteride (PROSCAR) 5 mg tablet, Take 1 tablet (5 mg total) by mouth daily, Disp: , Rfl: 2 furosemide (LASIX) 40 mg tablet, Take 1 tablet (40 mg total) by mouth daily, Disp: , Rfl: linaCLOtide (LINZESS) 290 mcg capsule, 1 capsule (290 mcg total), Disp: , Rfl: morphine ER (MS CONTIN) 30 mg 12 hr tablet, Take 2 tablets (60 mg total) by mouth 2 (two) times a day, Disp: , Rfl: 0 nitroglycerin (NITROSTAT) 0.4 mg SL tablet, Place 1 tablet (0.4 mg total) under the tongue every 5 (five) minutes as needed for chest pain May repeat dose q 5 min, up to 3 doses total, Disp: 100 tablet, Rfl: 0 sertraline (ZOLOFT) 50 mg tablet, Take 1 tablet (50 mg total) by mouth daily, Disp: , Rfl: 0 sulindac (CLINORIL) 200 mg tablet, Take 1 tablet (200 mg total) by mouth 2 (two) times a day, Disp:, Rfl: tamsulosin (FLOMAX) 0.4 mg extended release capsule, TAKE ONE CAPSULE BY MOUTH EVERY DAY, Disp: , Rfl: traZODone (DESYREL) 50 mg tablet, Take 1 tablet (50 mg total) by mouth nightly at bedtime, Disp: , Rfl: 1 losartan (COZAAR) 25 mg tablet, Take 1 tablet (25 mg total) by mouth daily, Disp: 90 tablet, Rfl: 3 Lab Results Component Value Date BUNSER 11 10/28/2019 CREATININE 0.97 10/28/2019 Lab Results Component Value Date WBC 6.7 10/28/2019 HGB 12.9 (L) 10/28/2019 HCT 37.1 (L) 10/28/2019 MCV 95 10/28/2019 No results found for this or any previous visit (from the past 4 hour(s)). Lab Results Component Value Date POCCHOL 130 09/17/2023 POCHDL 27 09/17/2023 POCTRIG 137 09/17/2023 POCLDL 75 09/17/2023 POCNONHDL 102 09/17/2023 POCCHLPL 130 09/17/2023 Assessment: Diagnoses and all orders for this visit: Ischemic cardiomyopathy Coronary artery disease involving [place] coronary artery of [place] heart without angina pectoris - losartan (COZAAR) 25 mg tablet; Take 1 tablet (25 mg total) by mouth daily Essential hypertension, malignant Plan/Recommendations: He has a history of coronary artery disease and an ischemic cardiomyopathy with subsequent improve of his LV function, last echo November 2019 showing LVEF 55- 60%. He does not appear to be in decompensated heart failure. Continue carvedilol, losartan, furosemide. He endorses some recent chest discomfort that could be GERD or angina. He did have relief with Tumsbut it reminded him of his previous anginal symptom. I advised him to monitor this closely and notify the office of further recurrence, particularly if he does not get relief with Tums. Continue atorvastatin, aspirin, carvedilol, losartan the same for now. If he has further symptoms concerning for angina, I would initiate low-dose isosorbide mononitrate. Blood pressure was initially low and improved somewhat on recheck. However he has had other low readings when he was seen in the office in the past. I recommend reducing losartan to 25 mg daily. Return to the office for routine follow-up with Dr. Clemons in 6 months. Call us sooner with questions or concerns. 05/13/2024 Jazmyn Hernández ANP-BC Nurse Practitioner with [facility] Cardiology This note is dictated and transcribed using [employer] Direct Software. Casing Machine Operator variancesmay occur. Despite proofreading, typographical errors may occur. documented in this encounter Plan of Treatment Not on file documented as of this encounter Visit Diagnoses Diagnosis Ischemic cardiomyopathy Other specified forms of chronic ischemic heart disease Coronary artery disease involving [place] coronary artery of [place] heart without angina pectoris Essential hypertension, malignant documented in this encounter Discontinued Medications Medication Sig Discontinue Reason Start Date End Da te losartan (COZAAR) 50 mg tablet TAKE 1 TABLET BY MOUTH EVERY DAY Dose adjustment 11/28/2022 05/13/2024 documented as of this encounter Historical Medications * This list may reflect changes made after this encounter. sulindac (CLINORIL) 200 mg tablet Take 1 tablet (200 mg total) by mouth 2 (two) times a day 04/25/2024 furosemide (LASIX) 40 mg tablet Take 1 tablet (40 mg total) by mouth daily 03/13/2024 fenofibrate (TRIGLIDE) 160 mg tablet Take 1 tablet (160 mg total) by mouth daily 04/22/2024 benzonatate (TESSALON) 200 mg capsule TAKE 1 CAPSULE BY MOUTH THREE TIMES DAILY NEEDED FOR COUGH 04/22/2024 baclofen (LIORESAL) 10 mg tablet Take 1 tablet (10 mg total) by mouth 2 (two) times a day 04/28/2024 added in this encounter Care Teams Small Products Assembler Relationship Specialty Start Date End Date Naveed Mcintosh MD [address] [place] [address] PCP - General Family Medicine 10/07/19 documented as of this encounter
--- OUTSIDE RECORDS SUMMARY | 2024-11-27 17:09 | XMS_ITS | Clinical Summary ---
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 Take 1 tablet (25 mg total) by mouth daily 90 tablet 3 4 05/13/20 25 Active carvediloL (COREG) 12.5 mg tablet TAKE 1 TABLET BY MOUTH TWICE DAILY 180 tablet 2 4 Active Active Problems Problem Noted Date Diagnosed Date Coronary artery disease invo lving white earth coronary artery of white earth heart without angina pectoris 10/28/2019 Ischemic cardiomyopathy 10/28/2019 Spinal stenosis 09/26/2015 Pain of right lower extremity 09/26/2015 Notalgia 09/25/2015 Surgical History Surgery Date Site/Laterality Comments MANDIBLE SURGERY Jaw Surgery - cancer 1986 (Added by TW Conv) STOMACH SURGERY Gastric Surgery - 2005 (Added by TW Conv) SHOULDER SURGERY Shoulder Surgery - Rt 2007 (Added by TW Conv) HIP SURGERY Hip Surgery - 1986 (Added by TW Conv) CARDIAC CATHETERIZATION CORONARY ANGIOPLASTY CATARACT EXTRACTION 06/2020 COLON SURGERY 05/26 ABDOMINAL SURGERY ? 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 Brain concussion Family History Medical History Relation Name Comments Cancer Brother 1 Alvaro Family history of malignant neoplasm - (Added by TW Conv) COPD Brother 2 Bill COPD Brother 3 Stevan Alcohol abuse Father Russell Cancer Father Russell Family history of malignant neoplasm - (Added by TW Conv) Diabetes Mother May Isidra Family history of diabetes mellitus - (Added by TW Conv) Heart disease Mother May Isidra Family history of cardiac disorder - (Added by TW Conv) Miscarriages / Stillbirths Mother May Isidra Heart attack Paternal Grandfather David Obesity Sister Yu Relation Name Status Comments Brother 1 Alvaro Brother 2 Bill Brother 3 Stevan Father Russell Mother May Isidra Paternal Grandfather David Sister Yu Social History Tobacco Use Types Packs/Day Years [...] on file 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 Gender Identity Male 11/26/2019 3:10 PM BIOLOGY ADJUNCT 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 Sexual Orientation Not on file Obstetrics History Last Filed Vital Signs Vital Sign Reading [...] 05/13/2024 11:38 AM CDT Plan of Treatment Health Maintenance Due Date Last Done Comments Depression Screening 1945 Fall Risk Assessment 1945 DTaP/Tdap/Td Vaccine (1 - Tdap) 1955 Hepatitis B Screening 1962 Lung Cancer Screening 1994 Abdominal Aortic Aneurysm (AAA) Screen 2009 Pneumococcal vaccine 65+ (1 of 1 - PCV) 2009 Well Visit 65+ 2009 Zoster Vaccine (2 of 3) 11/21/2017 09/26/2017 Covid-19 Vaccine (3 - season) 2024, 01/22/2021 Influenza Vaccine (#1) 2024 09/26/2017, 2015 Insurance MEDICARE SOLUTIONS MEDICARE SOLUTIONS IDPA Care Teams Patent Law Specialist Relationship Specialty Start Date End Date Naveed Mcintosh MD [address] [place] [address] PCP - General Family Medicine 10/07/19
--- OUTSIDE RECORDS SUMMARY | 2024-11-27 17:09 | XMS_ITS ---
Author Name Jann POSEY Kiara bansal Address Unknown Phone tel: Organization Unknown Address Unknown Phone tel: Care Team Providers Care Speech Therapy Assistant Name Role Phone Kristine Forte NP Primary Care Provider tel: Shilpi Jones Primary Care Provider tel: ALLERGIES, ADVERSE REACTIONS Data in this section may be excluded or not available. ASSESSMENTS Data in this section may be excluded or not available. SOCIAL HISTORY Description Effective Dates Sex M (Male) VITAL SIGNS Type Value Date Height (Code: 8302-2 ) 71 ( [in_i] ) June 09, 2023 BP (Systolic) (Code: 8480-6 ) 104 ( mm[Hg] ) J harinder 2022 BP (Diastolic) (Code: 8462-4 ) 60 ( mm[Hg] ) June 09, 2023 Pulse (Code: 8867-4 ) 70 ( /min ) June 09, 2023 Oxygen Saturation (Code: 13114-6 ) 91 ( % ) June 09, 2023 Inhaled Oxygen Concentration (Code: 3150-0 ) 21 ( % ) June 09, 2023 Temperature (Code: 8310-5 ) 97.3 ( [degF] ) June 09, 2023 Respiration (Code: 9279-1 ) 18 ( /min ) June 09, 2023 PROBLEMS Data in this section may be excluded or not available. Patient Care Teams * Care Speech Therapy Assistant Role on Team Date Mitchell. Kristine Dobbins
--- OUTSIDE RECORDS SUMMARY | 2024-11-27 17:09 | XMS_ITS ---
Author Name Taisha Martinez NP Address Unknown Phone tel: Organization Unknown Address Unknown Phone tel: Care Team Providers Care Tone Artist Apprentice Name Role Phone Taisha Martinez NP [...] not available. Patient Care Teams * Care Tone Artist Apprentice Role on Team Date Juan. Taisha Doe. Rena
--- OUTSIDE RECORDS SUMMARY | 2024-11-27 17:09 | XMS_ITS | Encounter Summary ---
Author Organization [facility] Address [address] [place] [address] Care Team Providers Care Factory Hand Name Role Phone Naveed Mcintosh MD Primary Care Prov ider Reason for Visit * Reason Comments Follow-up 6 mo Encounter Details Date Type Department Care Team (Late st Contact Info) Description 09/17/2023 1:00 PM CDT Office Visit [facility] Cardiology [address] [phone] Jazmyn Hernández NP [address] [facility] [address] [facility] [address] [place], [place] [id number] Coronary artery disease involving chemehuevi coronary artery of chemehuevi heart without angina pectoris; Ischemic cardiomyopathy; Essential hypertension, malignant; Lipid screening Social History Tobacco Use Types Packs/Day Years Used Date Smoking Tobacco: Former Cigarettes 1.5 65 0 03/12/1956 - 09/19/2018 Smokeless Tobacco: Never Comments:Quit 08/2019 Alcohol Use Standard Drinks/Week Comments Not Currently 0 (1 standard drink = 0.6 oz pur e alcohol) Sex and Gender Information Value Date Recorded Sex Assigned at Not on file 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 Gender Identity Male 11/26/2019 3:10 PM CLUTCH ASSEMBLER Sexual Orientation Not on file documented as of this encounter Last Filed Vital Signs Vital Sign Reading Time Taken Comments Blood Pressure 104/50 09/17/2023 1:14 PM CDT Pulse 58 09/17/2023 1:14 PM CDT Temperature - - Respiratory Rate - - Oxygen Saturation 90% 09/17/2023 1:14 PM CDT Inhaled Oxygen Concentration - - Weight 88.5 kg (195 lb) 09/17/2023 1:14 PM CDT Height 180.3 cm (5' 11 ) 09/17/2023 1:14 PM CDT Body Mass Index 27.2 09/17/2023 1:14 PM CDT documented in this encounter Progress Notes * Jazmyn Hernández NP - 09/17/2023 1:00 PM CDT Images from the original note were not included. [facility] Cardiology [address] [place] [address] Date of Visit: 09/17/2023 Patient ID: Russell Morse 1945 Chief Complaint Patient presents with Follow-up 6 mo Russell Morse is a 78 y.o. male who is an established patient of Dr. Clemons with a history of CADcoming to the office for routine follow up. History of Present Illness: Russell Morse is a 78 y.o. male who presents for follow up of coronary artery disease. This is a patient who presented to [facility] in August of 2019 with ischemic chest [...] ill last month and was hospitalized at [place]. 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 After the hospital stay he was sent to rehab for a while he is now back home and is still recovering from that. 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 He denies chest pain. His gastrointestinal technician (Dr. Gottlieb) who treats him for COPD just prescribed him home oxygen. Records that I personally reviewed on the day of this visit include: (the interpretation is outlined in the HPI above) 03/03/[address] Clemons I have also reviewed: allergies, current medications, [...] Social History Tobacco Use Smoking Status Former Packs/day: 1.50 Years: 65.00 Additional pack years: 0.00 Total pack years: 97.50 Types: Cigarettes Start date: 03/12/1956 Quit date: 09/19/2018 Years since quittin.9 Smokeless Tobacco Never Tobacco Comments Quit 08/2019 Social History Tobacco Use Smoking status: Former Packs/day: 1.50 Years: 65.00 Additional pack years: 0.00 Total pack years: 97.50 Types: Cigarettes Start date: 03/12/1956 Quit date: 09/19/2018 Years since quittin.9 Smokeless tobacco: Never Tobacco comments: Quit 08/2019 [...] Brother Obesity Sister Review of Systems Constitutional: Positive for weight loss. Negative for malaise/fatigue and weight gain. Cardiovascular: Positive for dyspnea on exertion (chronic, COPD). Negative for chest pain, claudication, leg swelling, near-syncope, orthopnea, palpitations, paroxysmal nocturnal dyspnea and syncope. Respiratory: Positive for cough and shortness of breath. Hematologic/Lymphatic: Negative for bleeding problem. Does not bruise/bleed easily. Neurological: Negative for dizziness and light-headedness. Vital Signs: BP 104/50 (BP Location: Left arm, Patient Position: Sitting) Pulse 58 Ht 180.3 cm (5' 11 ) Wt88.5 kg (195 lb) SpO2 90% BMI 27.20 kg/m?? Physical Exam Constitutional: General: He is not in acute distress. Appearance: He is well-developed. HENT: Head: Normocephalic and atraumatic. Eyes: General: No scleral icterus. Conjunctiva/sclera: Conjunctivae normal. Neck: Vascular: No JVD. Trachea: No tracheal deviation. Cardiovascular: Rate and Rhythm: Normal rate and regular rhythm. Heart sounds: Normal heart sounds. No murmur heard. Pulmonary: Effort: Pulmonary effort is normal. No respiratory distress. Breath sounds: Rhonchi present. Musculoskeletal: Comments: Ambulates with a cane Skin: General: Skin is warm and dry. [...] EVERY DAY, Disp: 90 tablet, Rfl: 1 Breztri Aerosphere 160-9-4.8 mcg/actuation HFA aerosol inhaler, INHALE [...] by mouth daily, Disp: , Rfl: 2 linaCLOtide (LINZESS) 290 mcg capsule, 1 capsule (290 mcg total), Disp: , Rfl: losartan (COZAAR) 50 mg tablet, TAKE 1 TABLET BY MOUTH EVERY DAY, Disp: 90 tablet, Rfl: 1 morphine ER (MS CONTIN) 30 mg 12 [...] by mouth daily, Disp: , Rfl: 0 tamsulosin (FLOMAX) 0.4 mg extended release capsule, TAKE ONE CAPSULE BY MOUTH EVERY DAY, Disp: , Rfl: traZODone (DESYREL) 50 mg tablet, Take 1 tablet (50 mg total) by mouth nightly at bedtime, Disp: , Rfl: 1 Lab Results Component Value Date BUNSER 11 10/28/2019 CREATININE 0.97 10/28/2019 Lab Results Component Value Date WBC 6.7 10/28/2019 HGB 12.9 (L) 10/28/2019 HCT 37.1 (L) 10/28/2019 MCV 95 10/28/2019 Recent Results (from the past 4 hour(s)) POCT lipid panel Collection Time: 09/17/23 1:17 PM Result Value Ref Range Cholesterol, POC 130 mg/dL HDL, POC 27 mg/dL Triglycerides, POC 137 mg/dL LDL, Direct, POC 75 mg/dL Chol/HDL Ratio, POC 4.7 Non-HDL Cholesterol, POC 102 mg/dL Cholesterol Total, POC 130 mg/dL Lab Results Component Value Date POCCHOL 130 09/17/2023 POCHDL 27 09/17/2023 POCTRIG 137 09/17/2023 POCLDL 75 09/17/2023 POCNONHDL 102 09/17/2023 POCCHLPL 130 09/17/2023 Assessment: Diagnoses and all orders for this visit: Coronary artery disease involving che[place]huevi coronary artery of che[place]vi heart without angina pectoris Ischemic cardiomyopathy Essential hypertension, malignant Lipid screening - POCT lipid panel Plan/Recommendations: He has a history of coronary artery disease and an ischemic cardiomyopathy with subsequent improve of his LV function. On exam today he denies any symptoms concerning for angina and is not exhibitingany signs or symptoms of decompensated heart failure. He should continue his current medical therapy of aspirin, atorvastatin, carvedilol and losartan. Notify the office if any angina develops. He verbalized understanding. Blood pressure is lower today but he is asymptomatic. Teaching was done with the patient regarding symptomatic hypotension so he would recognize this if it occurred at which time we would reduce 1 ofhis antihypertensives. Point of care lipid testing in the office today looks favorable. Return to the office for routine follow-up with Dr. Clemons in 6 months. Call us sooner with questions or concerns. 09/17/2023 MACKENZIE Gunderson- Nurse Practitioner with [facility] This note is dictated and transcribed using [employer] Direct Software. Residential Mortgage Underwriter variancesmay occur. Despite proofreading, typographical errors may occur. documented in this encounter Plan of Treatment Not on file documented as of this encounter Procedures Procedure Name Priority Date/Time Associated Diagnosis Comments POCT LIPID PANEL Routine 09/17/2023 1:17 PM CDT Lipid screening documented in this encounter Results * POCT lipid panel (09/17/2023 1:17 PM CDT) Cholesterol, POC 130 mg/dL HDL, POC 27 mg/dL Triglycerides, POC 137 mg/dL LDL Cholesterol POC 75 mg/dL Chol/HDL Ratio, POC 4.7 Non-HDL Cholesterol, POC 102 mg/dL Cholesterol Total, POC 130 mg/dL Capillary blood 09/17/2023 1 :17 PM CDT Jazmyn Hernández NP POINT OF CARE TEST ORDERA BLES Edited Result - Final documented in this encounter Visit Diagnoses Diagnosis Coronary artery disease involving che[place]huevi coronary artery of chemehuevi heart without angina pectoris Ischemic cardiomyopathy Other specified forms of chronic ischemic heart disease Essential hypertension, malignant Lipid screening Screening for lipoid disorders documented in this encounter Discontinued Medications Medication Sig Discontinue Reason Start Date End Da te levoFLOXacin (LEVAQUIN) 500 mg tablet Take 1 tablet (500 mg total) by mouth daily Therapy completed 02/26/2023 09/17/2023 SPIRIVA RESPIMAT 2.5 mcg/actuation inhaler INHALE 2 PUFFS BY MOUTH ONCE DAILY Therapy completed 09/19/2019 09/17/2023 SYMBICORT 160-4.5 mcg/actuation inhaler INHALATION 2 PUFFS TWICE A DAY Alternate therapy 09/23/2019 09/17/2023 Linzess 72 mcg capsule Take by mouth daily Alternate therapy 08/01/2021 09/17/2023 documented as of this encounter Historical Medications * This list may reflect changes made after this encounter. linaCLOtide (LINZESS) 290 mcg capsule 1 capsule (290 mcg total) Breztri Aerosphere 160-9-4.8 mcg/actuation HFA aerosol inhaler INHALE 2 PUFFS BY MOUTH EVERY MORNING AND EVENING THEN RINSE AND SPIT AFTER USE 09/12/2023 added in this encounter Care Teams Factory Hand Relationship Specialty Start Date End Date Naveed Mcintosh MD [address] [place] [address] PCP - General Family Medicine 10/07/19 documented as of this encounter
--- OUTSIDE RECORDS SUMMARY | 2024-11-27 17:09 | XMS_ITS ---
Author Name Taisha Martinez NP Address Unknown Phone tel: Organization Unknown Address Unknown Phone tel: Care Team Providers Care Theater Projectionist Name Role Phone Taisha Martinez NP Primary Care Provider tel: Shilpi Jones Primary Care Provider tel: ALLERGIES, ADVERSE REACTIONS Data in this section may be excluded or not available. ASSESSMENTS Data in this section may be excluded or not available. SOCIAL HISTORY Description Effective Dates Sex M (Male) VITAL SIGNS Type Value Date Height (Code: 8302-2 ) 71 ( [in_i] ) February 17, 2024 Weight (Code: 79397-4 ) 187 ( [lb_av] ) January 222023 BP (Systolic) (Code: 8480-6 ) 122 ( mm[Hg] ) [facility] 2023 BP (Diastolic) (Code: 8462-4 ) 72 ( mm[Hg] ) February 17, 2024 Pulse (Code: 8867-4 ) 78 ( /min ) February 17, 2024 Oxygen Saturation (Code: 79615-6 ) 94 ( % ) February 17, 2024 Inhaled Oxygen Concentration (Code: 3150-0 ) 21 ( % ) February 17, 2024 BMI (Code: 05643-4 ) 26.1 ( kg/m2 ) February 17, 2024 Temperature (Code: 8310-5 ) 97.2 ( [degF] ) [facility] 2023 Respiration (Code: 9279-1 ) 20 ( /min ) [facility] 2023 Faces Pain Scale (Code: 28341-2 ) 0 - No Hurt ( ) February 17, 2024 PROBLEMS Data in this section may be excluded or not available. Patient Care Teams * Care Theater Projectionist Role on Team Date Juan. Taisha Dobbins
--- OUTSIDE RECORDS SUMMARY | 2024-11-27 17:09 | XMS_ITS ---
Author Name Kim Mcdonough NP Address Unknown Phone tel: Organization Unknown Address Unknown Phone tel: Care Team Providers Care Shearing Shed Hand Name Role Phone Kim Mcdonough NP Primary Care Provider tel: Shilpi Jones Primary Care Provider tel: ALLERGIES, ADVERSE REACTIONS Data in this section may be excluded or not available. ASSESSMENTS Data in this section may be excluded or not available. SOCIAL HISTORY Description Effective Dates Sex M (Male) VITAL SIGNS Type Value Date Height (Code: 8302-2 ) 71 ( [in_i] ) February 19, 2024 Weight (Code: 82357-1 ) 187 ( [lb_av] ) January 222023 BMI (Code: 04254-1 ) 26.1 ( kg/m2 ) February 19, 2024 Faces Pain Scale (Code: 89818-5 ) 0 - No Hurt ( ) February 19, 2024 PROBLEMS Data in this section may be excluded or not available. Patient Care Teams * Care Shearing Shed Hand Role on Team Date Sharonda. Kim Dobbins
--- OUTSIDE RECORDS SUMMARY | 2024-11-27 17:09 | XMS_ITS ---
Author Name Boy Chisholm NP Address Unknown Phone tel: Organization Unknown Address Unknown Phone tel: Care Team Providers Care Golf Course Keeper Name Role Phone Boy Chisholm NP Primary Care Provider tel: Shilpi Jones Primary Care Provider tel: ALLERGIES, ADVERSE REACTIONS Data in this section may be excluded or not available. ASSESSMENTS Data in this section may be excluded or not available. SOCIAL HISTORY Description Effective Dates Sex M (Male) VITAL SIGNS Type Value Date Height (Code: 8302-2 ) 71 ( [in_i] ) May 06, 2024 Weight (Code: 61004-0 ) 185 ( [lb_av] ) April BP (Systolic) (Code: 8480-6 ) 106 ( mm[Hg] ) J une 2023 BP (Diastolic) (Code: 8462-4 ) 50 ( mm[Hg] ) J une 2023 Pulse (Code: 8867-4 ) 70 ( /min ) May 06 Oxygen Saturation (Code: 84008-5 ) 94 ( % ) May 06, 2024 Inhaled Oxygen Concentration (Code: 3150-0 ) 32 ( % ) May 06, 2024 BMI (Code: 61163-4 ) 25.8 ( kg/m2 ) May 06 Temperature (Code: 8310-5 ) 98 ( [degF] ) May 06, 2024 Respiration (Code: 9279-1 ) 16 ( /min ) May 06, 2024 Faces Pain Scale (Code: 03311-4 ) 0 - No Hurt ( ) May 06, 2024 PROBLEMS Data in this section may be excluded or not available. FUNCTIONAL STATUS Functional Condition Date Status Feeding: Independent May 06, 2024 Active Bathing: Independent (or in shower) May 06 Active Grooming: Independent face/h air/teeth/ shaving (implements provided) May 06, 2024 Active Dressing: Independent (including buttons, zips, laces, etc.) May 06, 2024 Active Bowels: Continent May 06, 2024 Active Bladder: Continent May 06, 2024 Active Toilet use: Independent (on and off, dressing, w iping) May 06, 2024 Active Transfers (bed to chair and back): Independent J 2023 Active Mobility (on level surfaces) : Independent (but may use any aid; for example, stick) >50 yards May 06, 2024 Active Stairs: Independent May 06, 2024 Active Total score: 100 May 06, 2024 Active COGNITIVE STATUS Condition Date Status Normal May 06, 2024 Active Patient Care Teams * Care Golf Course Keeper Role on Team Date Wessel. Boy Dobbins
--- OUTSIDE RECORDS SUMMARY | 2024-11-27 17:09 | XMS_ITS ---
Author Name Jann POSEY Kiara bansal Address Unknown Phone tel: Organization Unknown Address Unknown Phone tel: Care Team Providers Care Yard Supervisor Name Role Phone Kristine Forte NP Primary Care Provider tel: Shilpi Jones Primary Care Provider tel: ALLERGIES, ADVERSE REACTIONS Data in this section may be excluded or not available. ASSESSMENTS Data in this section may be excluded or not available. SOCIAL HISTORY Description Effective Dates Sex M (Male) VITAL SIGNS Type Value Date Height (Code: 8302-2 ) 71 ( [in_i] ) May 20, 2023 BP (Systolic) (Code: 8480-6 ) 108 ( mm[Hg] ) J une 2022 BP (Diastolic) (Code: 8462-4 ) 56 ( mm[Hg] ) May 20, 2023 Pulse (Code: 8867-4 ) 67 ( /min ) May 20, 2023 Oxygen Saturation (Code: 66804-1 ) 92 ( % ) May 20, 2023 Inhaled Oxygen Concentration (Code: 3150-0 ) 21 ( % ) May 20, 2023 Temperature (Code: 8310-5 ) 97.7 ( [degF] ) May 20, 2023 Respiration (Code: 9279-1 ) 20 ( /min ) May 20, 2023 PROBLEMS Data in this section may be excluded or not available. Patient Care Teams * Care Yard Supervisor Role on Team Date Mitchell. Kristine Dobbins
--- OUTSIDE RECORDS SUMMARY | 2024-11-27 17:10 | XMS_ITS | Encounter Summary ---
Author Organization [facility] Address [address] [facility] [address] [place] [id number] Care Team Providers Care Driver Education Instructor Name Role Phone Naveed Mcintosh MD Primary Care Prov ider Reason for Visit * Reason Comments Hospital Follow Up * Cardiology (Routine) - Closed Specialty Diagnoses / Procedures Referred By Contac t Referred To Contact Cardiology Diagnoses Chronic obstructive pulmonary disease, unspecified Non-ST elevation (NSTEMI) myocardial infarction Naveed Mcintosh MD [address] [place] [id number] Phone: tel: fax: [facility] Cardiology [address] [place] [phone] Phone: tel: fax: Referral ID Status Reason Start Date Expiration Date Visits Re quested Visits Authorized [id number] Closed 09/29/2019 03/27/2020 4 4 Encounter Details Date Type Department Care Team (Late st Contact Info) Description 10/07/2019 8:30 AM MECHANICAL AND AUTO BODY CAR CHECKER Office Visit [facility] [address] [facility] [address] [place] [phone] Jazmyn Hernández, KALPESH [address] [place] [address] Coronary artery disease involving [place] coronary artery of [place] heart without angina pectoris (Primary Dx); Presence of stent in coronary artery; Dilated cardiomyopathy (CMS/HCC); Essential hypertension; Tobacco use disorder, moderate, in early remission Social History Tobacco Use Types Packs/Day Years Used Date Smoking Tobacco: Former Cigarettes 0.5 60 1 - 09/15/2019 Smokeless Tobacco: Never Alcohol Use Standard Drinks/Week Comments Not Currently 0 (1 standard drink = 0.6 oz pur e alcohol) Sex and Gender Information Value Date Recorded Sex Assigned at Not on file Legal Sex Male 9:37 AM MECHANICAL AND AUTO BODY CAR CHECKER Gender Identity Male 11/26/2019 3:10 PM MECHANICAL AND AUTO BODY CAR CHECKER Sexual Orientation Not on file documented as of this encounter Last Filed Vital Signs Vital Sign Reading Time Taken Comments Blood Pressure 152/84 10/07/2019 8:45 AM MECHANICAL AND AUTO BODY CAR CHECKER Pulse 61 10/07/2019 8:45 AM MECHANICAL AND AUTO BODY CAR CHECKER Temperature - - Respiratory Rate - - Oxygen Saturation 94% 10/07/2019 8:45 AM MECHANICAL AND AUTO BODY CAR CHECKER Inhaled Oxygen Concentration - - Weight 91.3 kg (201 lb 4.8 oz) 10/07/2019 8:45 A M MECHANICAL AND AUTO BODY CAR CHECKER Height 180.3 cm (5' 11 ) 10/07/2019 8:45 AM MECHANICAL AND AUTO BODY CAR CHECKER Body Mass Index 28.08 10/07/2019 8:45 AM MECHANICAL AND AUTO BODY CAR CHECKER documented in this encounter Ordered Prescriptions Prescription Sig Dispense Quantity Refills Last Filled Start Date End Date atorvastatin (LIPITOR) 80 mg tabletIndications:Co ronary artery disease involving [place] coronary artery of [place] heart without angina pectoris Take 1 tablet (80 mg total) by mouth daily 30 tablet 11 10/07/2019 0 BRILINTA 90 mg tabletIndications:Co ronary artery disease involving [place] coronary artery of [place] heart without angina pectoris Take 1 tablet (90 mg total) by mouth 2 (two) times a day 60 tablet 11 10/07/2019 0 carvedilol (COREG) 6.25 mg tabletIndications:Di lated cardiomyopathy (CMS/HCC) (HCC) Take 1 tablet (6.25 mg total) by mouth every 12 (twelve) hours 60 tablet 11 10/07/2019 9 losartan (COZAAR) 25 mg tablet Take 1 tablet (25 mg total) by mouth daily 30 tablet 10/07/2019 9 documented in this encounter Progress Notes * Jazmyn Hernández NP - 10/07/2019 8:30 AM CST [facility] Date of Visit: 10/07/2019 Patient ID: Russell Morse 1945 Chief Complaint: Russell Morse is a 74 y.o. male comes to the office for hospital follow-up appointment after NSTEMI and PCI. History of Present Illness: Russell Morse is a 74 y.o. male with a past medical history significant for hypertension, hyperlipidemia, spinal stenosis and subsequent left foot drop, COPD and long-time smoking, polio at age 7, cancer of the mandible in the , bowel obstruction in 2005. He presented to [facility] on 09/16/2019 for complaint of a retrosternal pressure-like chest pain. Dr. Clemons saw him in consultation in the emergency room. ECG was unremarkable, but 2nd troponin codey to 1.1. He was taken to the label fuser tender the following morning. Coronary angiography showed severe single-vessel CAD with a subtotalocclusion of the mid LAD. This was treated with 2 drug-eluting stents (2.5 x 30 mm and 2.75 x 26 mm). He was also found to have severe LV systolic dysfunction akinesis of the distal apex, with EF estimated 25-30%. He was started on medical therapy with aspirin, Brilinta, atorvastatin, carvedilol and losartan. His postprocedure course was uneventful and he was discharged on 09/18/2019. 10/07/2019 hospital follow-up with PILOT: He comes to the office today accompanied by his daughter Sadia. He reports no recurrence of chest pain since discharge. He does feel fatigue and shortness of breath when he does activities around the house such as washing dishes. Prior to his hospitalization, he was smoking between 1/2 to 1 pack per day and has not smoked at all since discharge. He is interested in cardiac rehab. Twelve lead ECG performed in the office today was reviewed by me personally and shows sinus rhythm, RAD, LBBB, anterolateral infarct, rate 61 beats per minute. Point of care lipid panel today shows TC 140, TG 94, LDL 55, HDL 66 Records that I personally reviewed on the day of this visit include: (the interpretation is outlined in the HPI above) August 2019 [facility] records including the consultation note from Dr. Clemons, cath report, cardiology progress notes, discharge summary, today's ECG, point of care lipids and the patient's intake form I have also reviewed: allergies, current medications, past family history, past medical history, past social history, past surgical history and problem list Review of Systems Constitution: Positive for malaise/fatigue. Negative for diaphoresis, fever, weight gain and weightloss. HENT: Negative for hearing loss. Eyes: Negative for visual disturbance. Cardiovascular: Positive for dyspnea on exertion and leg swelling. Negative for chest pain, claudication, orthopnea, palpitations, paroxysmal nocturnal dyspnea and syncope. Respiratory: Negative for cough, hemoptysis, snoring and wheezing. Hematologic/Lymphatic: Does not bruise/bleed easily. Skin: Negative for poor wound healing and rash. Musculoskeletal: Positive for back pain. Negative for joint pain and myalgias. Gastrointestinal: Negative for heartburn, nausea and vomiting. Genitourinary: Negative for hematuria. Neurological: Negative for dizziness, headaches and light-headedness. Psychiatric/Behavioral: Negative for depression. The patient is not nervous/anxious. Vital Signs: BP 152/84 (BP Location: Left arm, Patient Position: Sitting) Pulse 61 Ht 180.3 cm (5' 11 ) Wt91.3 kg (201 lb 4.8 oz) SpO2 94% BMI 28.08 kg/m?? Physical Exam Constitutional: He is oriented to person, place, and time. He appears well- developed and well-nourished. No distress. HENT: Head: Normocephalic and atraumatic. Eyes: Pupils are equal, round, and reactive to light. Conjunctivae and EOM are normal. No scleral icterus. Neck: Normal range of motion. No JVD present. No tracheal deviation present. Cardiovascular: Normal rate, regular rhythm and normal heart sounds. No murmur heard. Right femoral artery puncture site closed, soft, nontender, no bruit. Pulmonary/Chest: Effort normal and breath sounds normal. No respiratory distress. Abdominal: Soft. Bowel sounds are normal. There is no tenderness. Musculoskeletal: Normal range of motion. General: No edema. Neurological: He is alert and oriented to person, place, and time. Skin: Skin is warm and dry. Psychiatric: He has a normal mood and affect. No Known Allergies Current Outpatient Medications: ??? albuterol HFA (PROAIR HFA) 90 mcg/actuation inhaler, INHALE 2 PUFFS EVERY 4- 6 HOURS, Disp: , Rfl: ??? aspirin 81 mg enteric coated tablet, Take 81 mg by mouth daily, Disp: , Rfl: ??? atorvastatin (LIPITOR) 80 mg tablet, Take 1 tablet (80 mg total) by mouth daily, Disp: 30 tablet, Rfl: 11 ??? BRILINTA 90 mg tablet, Take 1 tablet (90 mg total) by mouth 2 (two) times a day, Disp: 60 tablet, Rfl: 11 ??? buPROPion SR (ZYBAN) 150 mg 12 hr tablet, Take 150 mg by mouth 2 (two) times a day, Disp: , Rfl: 3 ??? carvedilol (COREG) 6.25 mg tablet, Take 1 tablet (6.25 mg total) by mouth every 12 (twelve) hours, Disp: 60 tablet, Rfl: 11 ??? docusate sodium (COLACE) 100 mg capsule, Take 100 mg by mouth 2 times daily, Disp: , Rfl: ??? esomeprazole DR (NexIUM) 20 mg capsule, Take 40 mg by mouth daily before breakfast, Disp: , Rfl: ??? finasteride (PROSCAR) 5 mg tablet, Take 5 mg by mouth daily, Disp: , Rfl: 2 ??? guaiFENesin ER (MUCINEX) 600 mg 12 hr tablet, Take 1,200 mg by mouth 2 (two) times a day, Disp:, Rfl: ??? losartan (COZAAR) 25 mg tablet, Take 1 tablet (25 mg total) by mouth daily, Disp: 30 tablet, Rfl: 11 ??? morphine ER (MS CONTIN) 60 mg 12 hr tablet, Take 60 mg by mouth 2 (two) times a day, Disp: , Rfl: 0 ??? omega 2-vxz-jvf-fish oil 1,000 mg (120 mg-180 mg) capsule, Take by mouth, Disp: , Rfl: ??? sertraline (ZOLOFT) 50 mg tablet, Take 50 [...] ??? traZODone (DESYREL) 50 mg tablet, Take 50 mg by mouth nightly at bedtime, Disp: , Rfl: 1 Assessment: Diagnoses and all orders for this visit: Coronary artery disease involving [place] coronary artery of [place] heart without angina pectoris (Primary) - BRILINTA 90 mg tablet; Take 1 tablet (90 mg total) by mouth 2 (two) times a day - atorvastatin (LIPITOR) 80 mg tablet; Take 1 tablet (80 mg total) by mouth daily Dilated cardiomyopathy (CMS/HCC) - carvedilol (COREG) 6.25 mg tablet; Take 1 tablet (6.25 mg total) by mouth every 12 (twelve) hours Presence of stent in coronary artery Other orders - losartan (COZAAR) 25 mg tablet; Take 1 tablet (25 mg total) by mouth daily Plan/Recommendations: He is 3 weeks s/p ACS and PCI to the LAD. He has had no recurrence of chest pain since discharge. Ireinforced the importance of compliance Brilinta. I explained that aspirin and statin therapy will be lifelong. LDL is at goal. I recommend enrollment in the cardiac rehab program and the patient agrees to be referred. He was also found to have a significant cardiomyopathy and at this point in time is unclear what degree was infarction versus ischemic stunning. We will continue medical therapy with carvedilol and losartan and up titrate as tolerated. I explained to him that we will reassess LV function by echo inthe next couple of months. I also reviewed the risk of congestive heart failure is and how this would present itself. Blood pressure is above goal. I explained his goal blood pressure is below 130/80. Increase losartan to 25 mg daily. Because heart rate is low end of normal, I will not up titrate his carvedilol at this time. I congratulated him on his smoking cessation. Return to the office to see me in 3-[address] Clemons in 2 months. Call us sooner with questions or concerns. At his next visit I will attempt to further up titrate losartan and/or carvedilol. We will also schedule his echo at that time. Total ttma-jj-[id number] visit time was 45 minutes. More than 50% of the time was spent counseling the patient about coronary artery disease, the anatomy of his PCI, medical treatment for CAD, medical treatment for cardiomyopathy, explanation of the cardiac rehab program, review of medications and the use of each, goal blood pressure, future management of CAD and cardiomyopathy. MACKENZIE Gunderson- Nurse Practitioner with [facility] This note is dictated and transcribed using Eko Direct Software. Jelly Maker variancesmay occur. Despite proofreading, typographical errors may occur. ANICAL AND AUTO BODY CAR CHECKER documented in this encounter Miscellaneous Notes * Addendum Note - Karen Bolivar MA - 10/07/2019 8:30 AM CSTAddended by: KAREN BOLIVAR on: 10/12/2019 03:01 PM Modules accepted: Orders ANICAL AND AUTO BODY CAR CHECKER documented in this encounter Plan of Treatment Not on file documented as of this encounter Procedures Procedure Name Priority Date/Time Associated Diagnosis Comments POCT LIPID PANEL Routine 10/12/2019 3:02 PM MECHANICAL AND AUTO BODY CAR CHECKER Coronary artery disease involving [place] coronary artery of [place] heart without angina pectoris documented in this encounter Results * POCT lipid panel (10/12/2019 3:02 PM MECHANICAL AND AUTO BODY CAR CHECKER) Cholesterol, POC 140 mg/dL HDL, POC 66 mg/dL Triglycerides, POC 94 mg/dL LDL Cholesterol POC 55 mg/dL Chol/HDL Ratio, POC 2.1 Non-HDL Cholesterol, POC 74 mg/dL Cholesterol Total, POC 140 mg/dL Blood specimen (specimen) 10/12/2019 3:02 PM MECHANICAL AND AUTO BODY CAR CHECKER us Jazmyn Hernández NP POINT OF CARE TEST ORDERA BLES Final Result documented in this encounter Visit Diagnoses Diagnosis Coronary artery disease involving [place] coronary artery of [place] heart without angina pectoris- Primary Presence of stent in coronary artery Dilated cardiomyopathy (CMS/HCC) (HCC) Other primary cardiomyopathies Essential hypertension Unspecified essential hypertension Tobacco use disorder, moderate, in early remission documented in this encounter Discontinued Medications Medication Sig Discontinue Reason Start Date End Da te losartan (COZAAR) 25 mg tablet Take 12.5 mg by mouth daily 09/18/2019 10/07/2019 carvedilol (COREG) 6.25 mg tablet Take 6.25 mg by mouth every 12 (twelve) hours Reorder 09/18/2019 10/07/2019 BRILINTA 90 mg tablet Take 90 mg by mouth 2 (two) times a day Reorder 09/18/2019 10/07/2019 atorvastatin (LIPITOR) 80 mg tablet Take 80 mg by mouth daily Reorder 09/20/2019 10/07/2019 documented as of this encounter Historical Medications * This list may reflect changes made after this encounter. traZODone (DESYREL) 50 mg tablet Take 1 tablet (50 mg total) by mouth nightly at bedtime 1 09/23/2019 tamsulosin (FLOMAX) 0.4 mg extended release capsule TAKE ONE CAPSULE BY MOUTH EVERY DAY 04/19/2019 sertraline (ZOLOFT) 50 mg tablet Take 1 tablet (50 mg total) by mouth daily 0 09/19/2019 morphine ER (MS CONTIN) 30 mg 12 hr tablet Take 2 tablets (60 mg total) by mouth 2 (two) times a day 0 09/19/2019 finasteride (PROSCAR) 5 mg tablet Take 1 tablet (5 mg total) by mouth daily 2 09/18/[address] (NexIUM) 20 mg capsule Take 2 capsules (40 mg total) by mouth daily before breakfast buPROPion SR (ZYBAN) 150 mg 12 hr tablet Take 1 tablet (150 mg total) by mouth 2 (two) times a day 3 09/12/2019 albuterol HFA (PROVENTIL HFA,VENTOLIN HFA,PROAIR HFA) 90 mcg/actuation inhaler INHALE 2 PUFFS EVERY 4-6 HOURS 04/19/2019 aspirin 81 mg enteric coated tablet Take 1 tablet (81 mg total) by mouth daily guaiFENesin ER (MUCINEX) 600 mg 12 hr tablet Take 1,200 mg by mouth 2 (two) times a day 0 SPIRIVA RESPIMAT 2.5 mcg/actuation inhaler INHALE 2 PUFFS BY MOUTH ONCE DAILY 3 09/19/2019 3 omega 1-qte-tiq-fish oil 1,000 mg (120 mg-180 mg) capsule Take by mouth 2 docusate sodium (COLACE) 100 mg capsule Take 100 mg by mouth 2 times daily 2 SYMBICORT 160-4.5 mcg/actuation inhaler INHALATION 2 PUFFS TWICE A DAY 1 09/23/2019 3 BRILINTA 90 mg tablet Take 90 mg by mouth 2 (two) times a day 0 09/18/2019 9 losartan (COZAAR) 25 mg tablet Take 12.5 mg by mouth daily 0 09/18/2019 9 carvedilol (COREG) 6.25 mg tablet Take 6.25 mg by mouth every 12 (twelve) hours 0 09/18/2019 9 atorvastatin (LIPITOR) 80 mg tablet Take 80 mg by mouth daily 2 09/20/2019 9 added in this encounter Care Teams Driver Education Instructor Relationship Specialty Start Date End Date Naveed Mcintosh MD [address] [place] [address] PCP - General Family Medicine 10/07/19 documented as of this encounter
--- OUTSIDE RECORDS SUMMARY | 2024-11-27 17:10 | XMS_ITS | Encounter Summary ---
Author Organization [facility] Care Team Providers Care Narrow Fabric Calenderer Name Role Phone Unavailable Primary Care Provider Unavailabl e Encounter Details Date Type Department Care Team (Late st Contact Info) Description 09/26/2015 - 09/26/2015 11:59 PM FINISHER SCREWDOWN Hospital [facility] HAMCONAngel Mathis, Daniel Mcgee Jr., MD [address] [address] Other intervertebral disc degeneration, lumbosacral region Social History Tobacco Use Types Packs/Day Years Used Date Smoking Tobacco: Every Day Sex and Gender Information Value Date Recorded Sex Assigned at Not on file Legal Sex Male 9:37 AM FINISHER SCREWDOWN Gender Identity Male 11/26/2019 3:10 PM FINISHER SCREWDOWN Sexual Orientation Not on file documented as of this encounter Plan of Treatment Not on file documented as of this encounter Procedures Procedure Name Priority Date/Time Associated Diagnosis Comments XR SPINE LUMBAR ROUTINE Routine 09/26/2015 11:24 AM FINISHER SCREWDOWN documented in this encounter Results * XR Lumbar Spine Routine (09/26/2015 11:24 AM FINISHER SCREWDOWN) Anatomical Region Laterality Modality L-spine N/A Radiographic Kristina ging 09/26/2015 11:2 4 AM FINISHER SCREWDOWN Narrative 09/26/2015 5:59 PM FINISHER SCREWDOWN SHANEL ENCISO M.D. SAEID MICHEL M.D. FINAL REPORT The radiology attending physician has personally reviewed this study, and has reviewed and/or edited this written report and agrees with it. ACC# ??Date Time ??Exam [id number] Sep 26, 2015 11:24:00 [id number] Spine Lumbar min 4 views ACC# ??Date Time ??Exam [id number] Sep 26, 2015 11:24:00 [id number] Spine Lumbar min 4 views EXAMINATION: ?Lumbar spine, minimum 4 views HISTORY: ??Lumbar spondylosis FINDINGS: ?? AP, lateral neutral, flexion, and extension views of the lumbar spine submitted for interpretation without comparison. Alignment of lumbar spine is normal. Vertebral body heights are normal. There is mild multilevel degenerative disc disease throughout the lumbar spine worse at L5-S1. Lumbar spine is hypomobile with flexion and extension. There are changes of diffuse idiopathic skeletal hyperostosis in the lower thoracic spine. ?? 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 ?? Requested By: DANIEL MATHIS M.D. Dictated By: ?? SAEID MICHEL M.D. ??on Sep ??2014 11:46A This document has been electronically signed by: SHANEL ENCISO M.D. on Sep ??2014 ??5:59P [id number] Procedure Note Provider, MD Alin - 03/28/2017 SHANEL ENCISO M.D. SAEID MICHEL M.D. FINAL REPORT The radiology attending physician has personally reviewed this study, and has reviewed and/or edited this written report and agrees with it. ACC# Date Time Exam [id number] Sep 26, 2015 11:24:00 [id number] Spine Lumbar min 4 views ACC# Date Time Exam [id number] Sep 26, 2015 11:24:00 [id number] Spine Lumbar min 4 views EXAMINATION: Lumbar spine, minimum 4 views HISTORY: Lumbar spondylosis FINDINGS: AP, lateral neutral, flexion, and extension views of the lumbar spine submitted for interpretation without comparison. Alignment of lumbar spine is normal. Vertebral body heights are normal. There is mild multilevel degenerative disc disease throughout the lumbar spine worse at L5-S1. Lumbar spine is hypomobile with flexion and extension. There are changes of diffuse idiopathic skeletal hyperostosis in the lower thoracic spine. 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 Requested By: DANIEL MATHIS M.D. Dictated By: SAEID MICHEL M.D. on Sep 26 2015 11:46A This document has been electronically signed by: SHANEL ENCISO M.D. on Sep 26 2015 5:59P [id number] us Historical Provider MD [facility]TREE XR PROCEDURES Final R esult documented in this encounter Visit Diagnoses Diagnosis Other intervertebral disc degeneration, lumbosacral region documented in this encounter
--- OUTSIDE RECORDS SUMMARY | 2024-11-27 17:10 | XMS_ITS | Encounter Summary ---
Author Organization [facility] Address [address] [facility] [address] [place] [address] Care Team Providers Care Mosaic Worker Name Role Phone Naveed Mcintosh MD Primary Care Prov ider Encounter Details Date Type Department Care Team (Late st Contact Info) Description 03/26/2020 Telephone [facility] Cardiology [address] [facility] [address] [facility] [address] [place] [address] Salas Clemons MD [address] [facility] [address] [facility] [address] [place] [address] Social History Tobacco Use Types Packs/Day Years Used Date Smoking Tobacco: Former Cigarettes 0.5 60 1 - 09/15/2019 Smokeless Tobacco: Never Alcohol Use Standard Drinks/Week Comments Not Currently 0 (1 standard drink = 0.6 oz pur e alcohol) Sex and Gender Information Value Date Recorded Sex Assigned at Not on file Legal Sex Male 9:37 AM INTERNAL SALES Gender Identity Male 11/26/2019 3:10 PM INTERNAL SALES Sexual Orientation Not on file documented as of this encounter Ordered Prescriptions Prescription Sig Dispense Quantity Refills Last Filled Start Date End Date atorvastatin (LIPITOR) 80 mg tabletIndications: Coronary artery disease involving [place] coronary artery of [place] heart without angina pectoris Take 1 tablet (80 mg total) by mouth daily 30 tablet 11 03/26/2020 03/06/2021 documented in this encounter Miscellaneous Notes * Telephone Encounter - Prisca Blake RN - 03/26/2020 9:13 AM CDT Spoke with pt. He is out of his atorvastatin-refill sent to pharm. * Telephone Encounter - Prisca Blake RN - 03/26/2020 9:12 AM CDT ----- Message from Russell Morse sent at 03/23/2020 1:43 PM CDT ----- Regarding: Prescription Question Contact: Am I supposed to be taking Atorvastain(sp) I saw it on my med list and I don???t have any in my pill sorter. Thanks and hope all is well with this virus and all are safe and healthy documented in this encounter Plan of Treatment Not on file documented as of this encounter Visit Diagnoses Diagnosis Coronary artery disease involving [place] coronary artery of [place] heart without angina pectoris documented in this encounter Discontinued Medications Medication Sig Discontinue Reason Start Date End Da te atorvastatin (LIPITOR) 80 mg tabletIndications:[place] artery disease involving [place] coronary artery of [place] heart without angina pectoris Take 1 tablet (80 mg total) by mouth daily Reorder 10/07/2019 03/26/2020 documented as of this encounter Care Teams Mosaic Worker Relationship Specialty Start Date End Date Naveed Mcintosh MD [address] [place] [address] PCP - General Family Medicine 10/07/19 documented as of this encounter
--- OUTSIDE RECORDS SUMMARY | 2024-11-27 17:10 | XMS_ITS | Encounter Summary ---
Author Organization [facility] Address [address] [facility] [facility] [address] [place] [address] Care Team Providers Care Barge Worker Name Role Phone Naveed Mcintosh MD Primary Care Prov ider Encounter Details Date Type Department Care Team (Late st Contact Info) Description 10/11/2021 Orders Only [facility] Cardiology [address] [facility] [address] [place] [address] Doroteo Cheng MD [address] [address] Social History Tobacco Use Types Packs/Day Years Used Date Smoking Tobacco: Former Cigarettes 0.5 60 1 - 09/15/2019 Smokeless Tobacco: Never Alcohol Use Standard Drinks/Week Comments Not Currently 0 (1 standard drink = 0.6 oz pur e alcohol) Sex and Gender Information Value Date Recorded Sex Assigned at Not on file Legal Sex Male 9:37 AM ADMITTING COORDINATOR Gender Identity Male 11/26/2019 3:10 PM ADMITTING COORDINATOR Sexual Orientation Not on file documented as of this encounter Plan of Treatment Not on file documented as of this encounter Procedures Procedure Name Priority Date/Time Associated Diagnosis Comments CARDIOLOGY DOCUMENT SCAN Routine 10/11/2021 documented in this encounter Results * SCAN - CARDIOLOGY (10/11/2021) Anatomical Region Laterality Modality Other us Doroteo Cheng MD [facility] Final Result documented in this encounter Visit Diagnoses Not on filedocumented in this encounter Care Teams Barge Worker Relationship Specialty Start Date End Date Naveed Mcintosh MD [address] [place] [address] PCP - General Family Medicine 10/07/19 documented as of this encounter
--- OUTSIDE RECORDS SUMMARY | 2024-11-27 17:10 | XMS_ITS | Encounter Summary ---
Author Organization [facility] Address [address] [facility] [address] [place] [address] Care Team Providers Care Burner Hand Name Role Phone Naveed Mcintosh MD Primary Care Prov ider Encounter Details Date Type Department Care Team (Late st Contact Info) Description 10/13/2019 Telephone [facility] [address] [place] [phone] Salas Clemons MD [address] [place] [address] Social History Tobacco Use Types Packs/Day Years Used Date Smoking Tobacco: Former Cigarettes 0.5 60 1 - 09/15/2019 Smokeless Tobacco: Never Alcohol Use Standard Drinks/Week Comments Not Currently 0 (1 standard drink = 0.6 oz pur e alcohol) Sex and Gender Information Value Date Recorded Sex Assigned at Not on file Legal Sex Male 9:37 AM CLIENT SERVICE ADMINISTRATOR Gender Identity Male 11/26/2019 3:10 PM CLIENT SERVICE ADMINISTRATOR Sexual Orientation Not on file documented as of this encounter Miscellaneous Notes * Telephone Encounter - Eugenia Forbes, RN - 10/13/2019 4:42 PM CLIENT SERVICE ADMINISTRATOR Spoke with patient. States that he figured out his question and nothing further is needed. NT SERVICE ADMINISTRATOR * Telephone Encounter - Sophia Andersen - 10/13/2019 3:52 PM CST Pt called back to discuss his Brilinta 90 mg tabs. [phone] NT SERVICE ADMINISTRATOR * Telephone Encounter - Sophia Andersen - 10/13/2019 1:29 PM CST Pt called to discuss the Brilinta 90 mg tabs. [phone] NT SERVICE ADMINISTRATOR documented in this encounter Plan of Treatment Not on file documented as of this encounter Visit Diagnoses Not on filedocumented in this encounter Care Teams Burner Hand Relationship Specialty Start Date End Date Naveed Mcintosh MD [address] [place] [address] PCP - General Family Medicine 10/07/19 documented as of this encounter
--- OUTSIDE RECORDS SUMMARY | 2024-11-27 17:10 | XMS_ITS | Encounter Summary ---
Author Organization [facility] Address [address] [facility] [address] [place] [address] Care Team Providers Care Meat Boner Name Role Phone Naveed Mcintosh MD Primary Care Prov ider Reason for Visit * Reason Comments Coronary Artery Disease Cardiomyopathy 6 mo f/u * Consultation (Routine) - Closed Specialty Diagnoses / Procedures Referred By Contac t Referred To Contact Cardiology Diagnoses Coronary atherosclerosis of [place] coronary artery Ischemic cardiomyopathy Naveed Mcintosh MD [address] [place] [address] Phone: tel: fax: [facility] Cardiology [address] [place] [phone] Phone: tel: fax: Referral ID Status Reason Start Date Expiration Date V isits Requested Visits Authorized [id number] Closed Specialty Services Required 08/14/2020 02/10/2021 6 6 Encounter Details Date Type Department Care Team (Latest Contact Info) Description 08/16/2020 2:30 PM CDT Office Visit [facility] Cardiology [address] [place] [phone] Salas Clemons MD [address] [place] [address] Coronary artery disease involving [place] coronary artery of [place] heart without angina pectoris (Primary Dx); Ischemic cardiomyopathy; Coronary atherosclerosis of [place] coronary artery Social History Tobacco Use Types Packs/Day Years Used Date Smoking Tobacco: Former Cigarettes 0.5 60 1 - 09/15/2019 Smokeless Tobacco: Never Alcohol Use Standard Drinks/Week Comments Not Currently 0 (1 standard drink = 0.6 oz pur e alcohol) Sex and Gender Information Value Date Recorded Sex Assigned at Not on file Legal Sex Male 9:37 AM PEN MAKER Gender Identity Male 11/26/2019 3:10 PM PEN MAKER Sexual Orientation Not on file documented as of this encounter Last Filed Vital Signs Vital Sign Reading Time Taken Comments Blood Pressure 110/70 08/16/2020 2:30 PM CDT Pulse 65 08/16/2020 2:30 PM CDT Temperature - - Respiratory Rate - - Oxygen Saturation 97% 08/16/2020 2:30 PM CDT Inhaled Oxygen Concentration - - Weight 100.2 kg (221 lb) 08/16/2020 2:30 PM CDT Height 180.3 cm (5' 11 ) 08/16/2020 2:30 PM CDT Body Mass Index 30.82 08/16/2020 2:30 PM CDT documented in this encounter Progress Notes * Salas Clemons MD - 08/16/2020 2:30 PM CDT [facility] FOLLOW UP 08/16/2020 Russell Morse is a 75 y.o. male who presents for follow up of coronary artery disease. This is a patient who presented to [facility] in August of 2019 with ischemic chest [...] is 55-60% there is still some apical hypokinesis. Patient returns today for scheduled follow-up and feels well he describes no ischemic symptomatology of any kind. I told him that when he runs out of his current supply of Brilinta he can discontinuethat as next month he will been on the anti-platelet therapy for 1 year. He feels well and does nothave any other complaints today. REVIEW OF SYSTEMS General ROS: negative for [...] MEDICATIONS Current Outpatient Medications: ??? albuterol HFA (PROAIR [...] Disp: , Rfl: 3 ??? carvedilol (COREG) 12.5 mg tablet, Take 1 tablet (12.5 mg total) by mouth 2 (two) times a day with meals, Disp: 60 tablet, Rfl: 11 ??? docusate sodium (COLACE) 100 mg capsule, Take 100 mg by mouth 2 times daily, Disp: , Rfl: ??? esomeprazole DR (NexIUM) 20 mg capsule, Take 40 mg by mouth daily before breakfast, Disp: , Rfl: ??? finasteride (PROSCAR) 5 mg tablet, Take 5 mg by mouth daily, Disp: , Rfl: 2 ??? losartan (COZAAR) 50 mg tablet, Take 1 tablet (50 mg total) by mouth daily, Disp: 90 tablet, Rfl: 1 ??? meloxicam (MOBIC) 15 mg tablet, Take 15 mg by mouth nightly, Disp: , Rfl: ??? morphine ER (MS [...] doses total, Disp: 100 tablet, Rfl: 0 ??? omega 0-iig-wzc-fish oil 1,000 mg (120 mg-180 mg) capsule, [...] for component: LABALBU PHYSICAL EXAM Vitals BP 110/70 (BP Location: Right arm, Patient Position: Sitting) Pulse 65 Ht 180.3 cm (5' 11 ) Wt 100.2 kg (221 lb) SpO2 97% BMI 30.82 kg/m?? Physical Examination: General appearance - alert, [...] Russell was seen today for coronary artery disease and cardiomyopathy. Diagnoses and all orders for this visit: Coronary artery disease involving [place] coronary artery of [place] heart without angina pectoris Ischemic cardiomyopathy PLAN/RECOMMENDATIONS Discontinue Brilinta when he runs out of his current supply Follow-up in 6 months or p.r.n. Salas Clemons MD documented in this encounter Plan of Treatment Not on file documented as of this encounter Visit Diagnoses Diagnosis Coronary artery disease involving [place] coronary artery of [place] heart without angina pectoris- Primary Ischemic cardiomyopathy Other specified forms of chronic ischemic heart disease Coronary atherosclerosis of [place] coronary artery documented in this encounter Discontinued Medications Medication Sig Discontinue Reason Start Date End Da te amoxicillin (AMOXIL) 875 mg tablet Take 875 mg by mouth 2 (two) times a day Therapy completed 08/16/2020 guaiFENesin ER (MUCINEX) 600 mg 12 hr tablet Take 1,200 mg by mouth 2 (two) times a day Therapy completed 08/16/2020 losartan (COZAAR) 50 mg tablet Take 1 tablet (50 mg total) by mouth daily Duplicate order 10/28/2019 08/16/2020 BRILINTA 90 mg tabletIndications:[place] artery disease involving [place] coronary artery of [place] heart without angina pectoris Take 1 tablet (90 mg total) by mouth 2 (two) times a day 10/07/2019 08/16/2020 documented as of this encounter Orders Outpatient Referral Count Last Ordered Date Fir st Ordered Date AMB REFERRAL TO CARDIOLOGY 1 08/17/2020 documented in this encounter Care Teams Meat Boner Relationship Specialty Start Date End Date Naveed Mcintosh MD [address] [place] [address] PCP - General Family Medicine 10/07/19 documented as of this encounter
--- OUTSIDE RECORDS SUMMARY | 2024-11-27 17:10 | XMS_ITS | Encounter Summary ---
Author Organization [facility] Address [address] [facility] [address] [place] [address] Care Team Providers Care Gas Turbine Powerplant Mechanic Helper Name Role Phone Naveed Mcintosh MD Primary Care Prov ider Encounter Details Date Type Department Care Team (Late st Contact Info) Description 11/03/2019 Orders Only [facility] [address] [place] [phone] Salas Clemons MD [address] [facility] [address] [facility] [address] [place] [address] Social History Tobacco Use Types Packs/Day Years Used Date Smoking Tobacco: Former Cigarettes 0.5 60 1 - 09/15/2019 Smokeless Tobacco: Never Alcohol Use Standard Drinks/Week Comments Not Currently 0 (1 standard drink = 0.6 oz pur e alcohol) Sex and Gender Information Value Date Recorded Sex Assigned at Not on file Legal Sex Male 9:37 AM PORTRAIT PAINTER Gender Identity Male 11/26/2019 3:10 PM PORTRAIT PAINTER Sexual Orientation Not on file documented as of this encounter Plan of Treatment Not on file documented as of this encounter Procedures Procedure Name Priority Date/Time Associated Diagnosis Comments CARDIOLOGY DOCUMENT SCAN Routine 09/16/2019 documented in this encounter Results * SCAN - CARDIOLOGY (09/16/2019) Anatomical Region Laterality Modality Other us Salas Clemons MD [facility] PROC EDURES Final Result documented in this encounter Visit Diagnoses Not on filedocumented in this encounter Care Teams Gas Turbine Powerplant Mechanic Helper Relationship Specialty Start Date End Date Naveed Mcintosh MD [address] [place] [address] PCP - General Family Medicine 10/07/19 documented as of this encounter
--- OUTSIDE RECORDS SUMMARY | 2024-11-27 17:10 | XMS_ITS | Encounter Summary ---
Author Organization [facility] Care Team Providers Care Senior Cytogenetics Laboratory Director Name Role Phone Naveed Mcintosh MD Primary Care Prov ider Encounter Details Date Type Department Care Team (Latest Contact Info) Description 11/28/2019 Travel Social History Tobacco Use Types Packs/Day Years Used Date Smoking Tobacco: Former Cigarettes 0.5 60 1 - 09/15/2019 Smokeless Tobacco: Never Alcohol Use Standard Drinks/Week Comments Not Currently 0 (1 standard drink = 0.6 oz pur e alcohol) Sex and Gender Information Value Date Recorded Sex Assigned at Not on file Legal Sex Male 9:37 AM SPLICER 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
--- OUTSIDE RECORDS SUMMARY | 2024-11-27 17:10 | XMS_ITS | Encounter Summary ---
Author Organization [facility] Address [address] [address] Care Team Providers Care Conference Reservationist Name Role Phone Naveed Mcintosh MD Primary Care Prov ider Reason for Referral * Cardiology (Routine) - Closed Specialty Diagnoses / Procedures Referred By Eliana lyon Referred To Contact Diagnoses Ischemic cardiomyopathy Procedures Transthoracic Echo Complete W Doppler/CF Jazmyn Fry NP [address] [address] Phone: tel: fax: [facility] Referral ID Status Reason Start Date Expiration Date Visits Re quested Visits Authorized [id number] Closed 10/28/2019 05/08/2021 1 1 L DATABASE ADMINISTRATOR Reason for Visit * Reason Comments Follow-up 3-4 wk f/u * Cardiology (Routine) - Closed Specialty Diagnoses / Procedures Referred By Contzeinab t Referred To Contact Cardiology Diagnoses Chronic obstructive pulmonary disease, unspecified Non-ST elevation (NSTEMI) myocardial infarction Naveed Mcintosh MD [address] [place] [address] Phone: tel: fax: [facility] Cardiology [address] [place] [address] Phone: tel: fax: Referral ID Status Reason Start Date Expiration Date Visits Re quested Visits Authorized [id number] Closed 09/29/2019 03/27/2020 4 4 Encounter Details Date Type Department Care Team (Late st Contact Info) Description 10/28/2019 11:00 AM MYSQL DATABASE ADMINISTRATOR Office Visit [facility] [address] [place] [phone] Jazmyn Fry NP [address] [place] [id number] Coronary artery disease involving [place] coronary artery of [place] heart without angina pectoris; Ischemic cardiomyopathy; Essential hypertension; Arthritis pain; Arthralgia, unspecified joint; Flu-like symptoms Social History Tobacco Use Types Packs/Day Years Used Date Smoking Tobacco: Former Cigarettes 0.5 60 1 - 09/15/2019 Smokeless Tobacco: Never Tobacco Cessation:Counseling Given: Yes Alcohol Use Standard Drinks/Week Comments Not Currently 0 (1 standard drink = 0.6 oz pur e alcohol) Sex and Gender Information Value Date Recorded Sex Assigned at Not on file Legal Sex Male 9:37 AM MYSQL DATABASE ADMINISTRATOR Gender Identity Male 11/26/2019 3:10 PM MYSQL DATABASE ADMINISTRATOR Sexual Orientation Not on file documented as of this encounter Last Filed Vital Signs Vital Sign Reading Time Taken Comments Blood Pressure 132/60 10/28/2019 11:22 AM MYSQL DATABASE ADMINISTRATOR Pulse 60 10/28/2019 11:22 AM MYSQL DATABASE ADMINISTRATOR Temperature - - Respiratory Rate - - Oxygen Saturation 95% 10/28/2019 11:22 AM MYSQL DATABASE ADMINISTRATOR Inhaled Oxygen Concentration - - Weight 89.9 kg (198 lb 1.6 oz) 10/28/2019 11:22 AM MYSQL DATABASE ADMINISTRATOR Height 180.3 cm (5' 11 ) 10/28/2019 11:22 AM MYSQL DATABASE ADMINISTRATOR Body Mass Index 27.63 10/28/2019 11:22 AM MYSQL DATABASE ADMINISTRATOR documented in this encounter Ordered Prescriptions Prescription Sig Dispense Quantity Refills Last Filled Start Date End Date carvedilol (COREG) 12.5 mg tablet Take 1 tablet (12.5 mg total) by mouth 2 (two) times a day with meals 60 tablet 11 10/28/2019 10/11/2020 losartan (COZAAR) 50 mg tablet Take 1 tablet (50 mg total) by mouth daily 30 tablet 11 10/28/2019 08/16/2020 documented in this encounter Progress Notes * Jazmyn Fry NP - 10/28/2019 11:00 AM CST [facility] Date of Visit: 10/28/2019 Patient ID: Elmer López 1945 Chief Complaint: Elmer López is a 74 y.o. male comes to the office for a second office visit after NSTEMI and PCI. History of Present Illness: Elmer López is a 74 y.o. male with a past medical history significant for hypertension, hyperlipidemia, spinal stenosis and subsequent left foot drop, COPD and long-time smoking, polio at age 7, cancer of the mandible in the , bowel obstruction in 2005. He presented to [facility] on 09/16/2019 for complaint of a retrosternal pressure-like chest pain. Dr. Clemons saw him in consultation in the emergency room. ECG was unremarkable, but 2nd troponin codey to 1.1. He was taken to the [facility] sinking the following morning. Coronary angiography showed severe [...] discharged on 09/18/2019. 10/07/2019 hospital follow-up with [facility]: He comes to the office today accompanied [...] 140, TG 94, LDL 55, HDL 66 10/28/2019 OV with [facility] [employer] [facility]: He returns for 4 week follow-up. He feels like he has gained a little more energy. He has had 3 episodes of a 24 hour flu like symptom with low-grade fever, chills, body aches and sweating. He denies cough, runny nose or sore throat. No sick contacts. He denies any further chest pain, denies orthopnea or PND, denies lightheadedness, syncope or presyncope. He has been compliant with medication. Takes meloxicam every night and wants to know if there's anything else he can take decides Tylenol for his arthritis pain. Records that I personally reviewed on the day of this visit include: (the interpretation is outlined in the HPI above) 10/07/2019 office note from myself I have also reviewed: allergies, current medications, past family history, past medical history, past social history, past surgical history and problem list Review of Systems Constitution: Negative for diaphoresis, fever, malaise/fatigue, weight gain and weight loss. HENT: Negative for hearing loss. Eyes: Negative for visual disturbance. Cardiovascular: Positive for leg swelling. Negative for chest pain, claudication, dyspnea on exertion, orthopnea, palpitations, paroxysmal nocturnal dyspnea and syncope. Respiratory: Negative for cough, hemoptysis, snoring and wheezing. Hematologic/Lymphatic: Does not bruise/bleed easily. Skin: Negative for poor wound healing and rash. Musculoskeletal: Positive for back pain and joint pain. Negative for myalgias. Gastrointestinal: Negative for heartburn, nausea and vomiting. Genitourinary: Negative for hematuria. Neurological: Negative for dizziness, headaches and light-headedness. Psychiatric/Behavioral: Negative for depression. The patient is not nervous/anxious. Vital Signs: BP 132/60 (BP Location: Right arm, Patient Position: Sitting) Pulse 60 Ht 180.3 cm (5' 11 ) Wt 89.9 kg (198 lb 1.6 oz) SpO2 95% BMI 27.63 kg/m?? Physical Exam Constitutional: He is oriented [...] He has a normal mood and affect. Allergies Allergen Reactions ??? Pollen Extracts Unknown ??? Seasonale (91) [Levonorgestrel-Ethinyl Estrad] Unknown Current Outpatient Medications: ??? albuterol HFA (PROAIR [...] a day, Disp: , Rfl: 3 ??? docusate sodium (COLACE) 100 mg capsule, [...] (two) times a day, Disp:, Rfl: ??? meloxicam (MOBIC) 15 mg tablet, Take 15 mg by mouth nightly, Disp: , Rfl: ??? morphine ER (MS CONTIN) 60 mg 12 hr tablet, Take 60 mg by mouth 2 (two) times a day, Disp: , Rfl: 0 ??? omega 6-oth-drw-fish oil 1,000 mg (120 mg-180 mg) capsule, [...] at bedtime, Disp: , Rfl: 1 ??? amoxicillin (AMOXIL) 875 mg tablet, Take 875 mg by mouth 2 (two) times a day, Disp: , Rfl: ??? carvedilol (COREG) 12.5 mg tablet, Take 1 tablet (12.5 mg total) by mouth 2 (two) times a day with meals, Disp: 60 tablet, Rfl: 11 ??? losartan (COZAAR) 50 mg tablet, Take 1 tablet (50 mg total) by mouth daily, Disp: 30 tablet, Rfl: 11 Assessment: Diagnoses and all orders for this visit: Coronary artery disease involving [place] coronary artery of [place] heart without angina pectoris Ischemic cardiomyopathy - Transthoracic Echo Complete W Doppler/CF; Future Essential hypertension Arthritis pain Arthralgia, unspecified joint Flu-like symptoms - CBC with auto differential; Future - Basic metabolic panel; Future Other orders - losartan (COZAAR) 50 mg tablet; Take 1 tablet (50 mg total) by mouth daily - carvedilol (COREG) 12.5 mg tablet; Take 1 tablet (12.5 mg total) by mouth 2 (two) times a day with meals Plan/Recommendations: He is s/p ACS and PCI to the LAD on 09/16/2019. He has had no recurrence of chest pain since discharge. He remains on aspirin, Brilinta and statin. LDL is at goal. At the time of his ACS he was found to have a significant cardiomyopathy and at this point in time is unclear what degree was infarction versus ischemic stunning. We will continue medical therapy with carvedilol and losartan and up titrate as tolerated. At the last visit his losartan was up titrated and he tolerated this well. I instructed him to up titrate losartan again to 50 mg daily, and in 1week up titrate the carvedilol to 12.5 mg b.i.d. Recheck BMP. I reviewed signs and symptoms of symptomatic hypotension that he should look for with the increase in medication. I explained to him thatwe will reassess LV function by echo just prior to his next follow-up visit with Dr. Clemons in 4 weeks. Blood pressure has improved compared to the last visit. For his arthritis pain, I cautioned him not to take any additional NSAIDs because he is already on meloxicam and aspirin. Use Tylenol only. He has had 3 episodes of a 24 hour flu like syndrome over the last few weeks. I will check a CBC tolook at his white count. Jazmyn Fry, ANP-BC Nurse Practitioner with [facility] This note is dictated and transcribed using [employer] Direct Software. Leveler Helper variancesmay occur. Despite proofreading, typographical errors may occur. L DATABASE ADMINISTRATOR L DATABASE ADMINISTRATOR documented in this encounter Plan of Treatment Not on file documented as of this encounter Procedures Procedure Name Priority Date/Time Associated Diagnosis Comments BASIC METABOLIC PANEL Routine 10/28/2019 12:24 PM MYSQL DATABASE ADMINISTRATOR Flu-like symptoms CBC WITH AUTO DIFFERENTIAL Routine 10/28/2019 12:23 PM MYSQL DATABASE ADMINISTRATOR Flu-like symptoms documented in this encounter Results * TRANSTHORACIC ECHO (TTE) COMPLETE W DOPPLER/CF WO CONTRAST (11/28/2019 12:42 PM MYSQL DATABASE ADMINISTRATOR) Anatomical Region Laterality Modality Ultrasound 11/28/2019 10:4 5 AM MYSQL DATABASE ADMINISTRATOR Narrative 11/28/2019 1:28 PM MYSQL DATABASE ADMINISTRATOR [facility] Cardiology [address], [place] [address] [address], [place] [address] P:[phone] P:[phone] Echocardiographic Report Patient Name: ELMER LÓPEZ : 1945 Study Date: 11/28/2019 10:45:36 AM Gender: M Tech: Location: [place] Ref.Provider: LUCY Height(Cm): 180 BSA: 2.1 Weight(Kg): 89.81 Heart Rate: 63 BP: 139/60 Quality: Good Order Provider: JAZMYN FRY Procedures: Echocardiographic Report: Transthoracic echocardiogram with complete 2D, M-Mode, and color Doppler examination. Indications: Ischemic cardiomyopathy. Measurements: 2D/M Mode Doppler Measurement Value Normal Range Measurement Value Normal Range EF Mod 50 ??AV Mean PG 5 mmHg EF MM 66 [ 55 - 70 ] % AV Peak Jt 1.52 m/s LVIDd MM 4.95 [ 3.90 - 5.30 ] cm AV Peak PG 9 mmHg LVIDs MM 3.15 [ 2.30 - 3.90 ] cm AV VTI 0.34 cm LVPWd MM 1.20 [ 0.60 - 1.00 ] cm LVOT Peak Jt 1.03 [ 0.70 - 1.10 ] m/s IVSd MM 1.13 [ 0.60 - 0.90 ] cm LVOT VTI 0.22 cm LA Dimension MM 3.82 [ 2.70 - 3.80 ] cm MV E Peak Jt 0.53 [ 0.60 - 1.30 ] m/s AoR Diam MM 3.45 [ 2.60 - 3.70 ] cm MV A Peak Jt 0.87 [ 0.40 - 0.80 ] m/s LA Volume Index 27.00 [ 16.00 - 28.00 ] cc/m2 MV Decel Time 275 [ 150 - 200 ] msec ACS MM 2.25 cm PV Peak Jt 0.75 [ 0.40 - 0.80 ] m/s E' 0.06 E/E' 10 Findings: Interpretation Site: Exam was interpreted at [facility]. Left Ventricle: Normal left ventricular size. Mild concentric left ventricular hypertrophy. Normal global left ventricular systolic function. Impaired diastolic relaxation Grade I. Ejection fraction is visually estimated at 55-60 %. Ejection fraction is measured at 50 %. These segments of the LV are hypokinetic: apical segment and apical septum segment. Right Ventricle: Normal right ventricular size. Normal right ventricular systolic function. Left Atrium: There is mild enlargement of left atrium. Right Atrium: The right atrium is normal in size. Atrial Septum: Normal atrial septum. Mitral Valve: Mild mitral annular calcification. Mild mitral valve regurgitation. There is no hemodynamically significant mitral stenosis by Doppler. Aortic Valve: No evidence of hemodynamically significant aortic stenosis by Doppler. Aortic cusps appear mildly sclerotic. Trileaflet aortic valve. Trace aortic valve regurgitation. Tricuspid Valve: Normal appearance of the tricuspid valve. Right ventricular systolic pressure could not be estimated due to inadequate visualization of the tricuspid regurgitation jet. Trivial regurgitation in the tricuspid valve. Pulmonic Valve: Normal appearance of the pulmonic valve. No pulmonic stenosis. Trivial regurgitation in the pulmonic valve. Pericardium: Normal pericardium with no significant pericardial effusion. Aorta: No aortic root dilation. Mild aortic root calcification. IVC: Normal size and normal respiratory collapse consistent with normal right atrial pressure (<5 mmHg). Conclusions: Normal left ventricular size. Mild concentric left ventricular hypertrophy. Normal global left ventricular systolic function. Impaired diastolic relaxation Grade I. Ejection fraction is visually estimated at 55-60 %. Ejection fraction is measured at 50 %. These segments of the LV are hypokinetic: apical segment and apical septum segment. There is mild enlargement of left atrium. Mild mitral annular calcification. Mild mitral valve regurgitation. Normal sinus rhythm. Electronically Signed By: Doroteo Cheng MD 2019-11-28 13:28:48 MYSQL DATABASE ADMINISTRATOR Procedure Note Doroteo Cheng MD - 11/28/2019 [facility] Cardiology [address] [facility] [address], [place] [address] [address] [facility] [address], [place] [address] P:[phone] P:[phone] Echocardiographic Report Patient Name: ELMER LÓPEZ : 1945 Study Date: 11/28/2019 10:45:36 AM Gender: M Tech: Location: [place] Ref.Provider: LUCY Height(Cm): 180 BSA: 2.1 Weight(Kg): 89.81 Heart Rate: 63 BP: 139/60 Quality: Good Order Provider: JAZMYN FRY Procedures: Echocardiographic Report: Transthoracic echocardiogram with complete 2D, M-Mode, and color Dopplerexamination. Indications: Ischemic cardiomyopathy. Measurements: 2D/M Mode Doppler Measurement Value Normal Range Measurement Value Normal Range EF Mod 50 AV Mean PG 5 mmHg EF MM 66 [ 55 - 70 ] % AV Peak Jt 1.52 m/s LVIDd MM 4.95 [ 3.90 - 5.30 ] cm AV Peak PG 9 mmHg LVIDs MM 3.15 [ 2.30 - 3.90 ] cm AV VTI 0.34 cm LVPWd MM 1.20 [ 0.60 - 1.00 ] cm LVOT Peak Jt 1.03 [ 0.70 - 1.10 ] m/s IVSd MM 1.13 [ 0.60 - 0.90 ] cm LVOT VTI 0.22 cm LA Dimension MM 3.82 [ 2.70 - 3.80 ] cm MV E Peak Jt 0.53 [ 0.60 - 1.30 ]m/s AoR Diam MM 3.45 [ 2.60 - 3.70 ] cm MV A Peak Jt 0.87 [ 0.40 - 0.80 ]m/s LA Volume Index 27.00 [ 16.00 - 28.00 ] cc/m2 MV Decel Time 275 [ 150 -200 ] msec ACS MM 2.25 cm PV Peak Jt 0.75 [ 0.40 - 0.80 ] m/s E' 0.06 E/E' 10 Findings: Interpretation Site: Exam was interpreted at [facility]. Left Ventricle: Normal left ventricular size. Mild concentric left ventricularhypertrophy. Normal global left ventricular systolic function. Impaired diastolic relaxation Grade I.Ejection fraction is visually estimated at 55-60 %. Ejection fraction is measuredat 50 %. These segments of the LV are hypokinetic: apical segment and apical septumsegment. Right Ventricle: Normal right ventricular size. Normal right ventricular systolicfunction. Left Atrium: There is mild enlargement of left atrium. Right Atrium: The right atrium is normal in size. Atrial Septum: Normal atrial septum. Mitral Valve: Mild mitral annular calcification. Mild mitral valve regurgitation. Thereis no hemodynamically significant mitral stenosis by Doppler. Aortic Valve: No evidence of hemodynamically significant aortic stenosis by Doppler.Aortic cusps appear mildly sclerotic. Trileaflet aortic valve. Trace aortic valveregurgitation. Tricuspid Valve: Normal appearance of the tricuspid valve. Right ventricular systolicpressure could not be estimated due to inadequate visualization of the tricuspidregurgitation jet. Trivial regurgitation in the tricuspid valve. Pulmonic Valve: Normal appearance of the pulmonic valve. No pulmonic stenosis. Trivialregurgitation in the pulmonic valve. Pericardium: Normal pericardium with no significant pericardial effusion. Aorta: No aortic root dilation. Mild aortic root calcification. IVC: Normal size and normal respiratory collapse consistent with normal rightatrial pressure (<5 mmHg). Conclusions: Normal left ventricular size. Mild concentric left ventricularhypertrophy. Normal global left ventricular systolic function. Impaired diastolic relaxation Grade I.Ejection fraction is visually estimated at 55-60 %. Ejection fraction is measuredat 50 %. These segments of the LV are hypokinetic: apical segment and apical septumsegment. There is mild enlargement of left atrium. Mild mitral annular calcification. Mild mitral valve regurgitation. Normal sinus rhythm. Electronically Signed By: Doroteo Cheng MD 2019-11-28 13:28:48 MYSQL DATABASE ADMINISTRATOR Jazmyn Fry NP CV ECHO PROCEDURES Final Result * Basic metabolic panel (10/28/2019 12:24 PM MYSQL DATABASE ADMINISTRATOR) Pathologist [facility] Glucose 91 65 - 99 mg/dL [facility] - 01 BUN 11 8 - 27 mg/dL [facility] - 01 Creatinine, Serum 0.97 0.76 - 1.27 mg/dL [facility] - 01 eGFR If NonAfricn Am 76 >59 mL/min/1.73 [facility] - 01 eGFR If Africn Am 88 >59 mL/min/1.73 [facility] - 01 BUN/creat ratio 11 10 - 24 [facility] - 01 Sodium 140 134 - 144 mmol/L [facility] - 01 Potassium, sr 4.1 3.5 - 5.2 mmol/L [facility] - 01 Chloride 102 96 - 106 mmol/L [facility] - 01 CO2 23 20 - 29 mmol/L [facility] - 01 Calcium 8.8 8.6 - 10.2 mg/dL [facility] - 01 Blood specimen (specimen) 10/28/2019 12:24 PM MYSQL DATABASE ADMINISTRATOR 10/28/2019 Narrative [facility] - 10/29/2019 1:06 AM MYSQL DATABASE ADMINISTRATOR Performed at: ??01 - [facility], [place], [place] [id number] Waiter/Waitress Second Class: Silvano Mayes PhD, Phone: ??[phone] us Jazmyn Fry NP LAB BLOOD ORDERABLES Wendy l Result [facility] - 01 * (ABNORMAL) CBC with auto differential (10/28/2019 12:23 PM MYSQL DATABASE ADMINISTRATOR) WBC 6.7 3.4 - 10.8 x10E3/uL [facility] - 01 RBC 3.90(L) 4.14 - 5.80 x10E6/uL [facility] - 01 Hgb 12.9(L) 13.0 - 17.7 g/dL [facility] - 01 Hct 37.1(L) 37.5 - 51.0 % [facility] - 01 MCV 95 79 - 97 fL [facility] - 01 MCH 33.1(H) 26.6 - 33.0 pg [facility] - 01 MCHC 34.8 31.5 - 35.7 g/dL [facility] - 01 Rdw 13.5 12.3 - 15.4 % [facility] - 01 Platelets 253 150 - 450 x10E3/uL [facility] - 01 Neutrophils pct 50 Not Estab. % [facility] - 01 Lymphs pct 36 Not Estab. % [facility] - 01 Monocytes pct 10 Not Estab. % [facility] - 01 Eosinophils pct 3 Not Estab. % [facility] - 01 Basophil pct 0 Not Estab. % [facility] - 01 Neutrophil abs 3.3 1.4 - 7.0 x10E3/uL [facility] - 01 Lymphs (Absolute) 2.4 0.7 - 3.1 x10E3/uL [facility] - 01 Monocyte abs 0.7 0.1 - 0.9 x10E3/uL [facility] - 01 Eosinophils, abs 0.2 0.0 - 0.4 x10E3/uL [facility] - 01 Basophils, abs 0.0 0.0 - 0.2 x10E3/uL [facility] - 01 Immature Granulocytes 1 Not Estab. % [facility] - 01 Immature Grans (Abs) 0.1 0.0 - 0.1 x10E3/uL [facility] - 01 Blood specimen (specimen) 10/28/2019 12:23 PM MYSQL DATABASE ADMINISTRATOR 10/28/2019 Narrative [facility] - 10/29/2019 2:06 AM MYSQL DATABASE ADMINISTRATOR Performed at: ??01 - [facility] [address] ??[id number] Waiter/Waitress Second Class: Silvano Mayes PhD, Phone: ??[phone] Jazmyn Fry NP LAB BLOOD ORDERABLES Wendy l Result [facility] - 01 documented in this encounter Visit Diagnoses Diagnosis Coronary artery disease involving [place] coronary artery of [place] heart without angina pectoris Ischemic cardiomyopathy Other specified forms of chronic ischemic heart disease Essential hypertension Unspecified essential hypertension Arthritis pain Arthralgia, unspecified joint Flu-like symptoms Ischemic cardiomyopathy Other specified forms of chronic ischemic heart disease documented in this encounter Discontinued Medications Medication Sig Discontinue Reason Start Date End Da te losartan (COZAAR) 25 mg tablet Take 1 tablet (25 mg total) by mouth daily Dose adjustment 10/07/2019 10/28/2019 carvedilol (COREG) 6.25 mg tabletIndications:Dilated cardiomyopathy (CMS/HCC) (HCC) Take 1 tablet (6.25 mg total) by mouth every 12 (twelve) hours Dose adjustment 10/07/2019 10/28/2019 documented as of this encounter Historical Medications * This list may reflect changes made after this encounter. meloxicam (MOBIC) 15 mg tablet Take 15 mg by mouth nightly 02/25/2022 added in this encounter Care Teams Conference Reservationist Relationship Specialty Start Date End Date Naveed Mcintosh MD [address] [place] [address] PCP - General Family Medicine 10/07/19 documented as of this encounter
--- OUTSIDE RECORDS SUMMARY | 2024-11-27 17:10 | XMS_ITS | Encounter Summary ---
Author Organization [facility] Address [address] [facility] [address] [place] [address] Care Team Providers Care Folder Inspector Name Role Phone Naveed Mcintosh MD Primary Care Prov ider Encounter Details Date Type Department Care Team (Late st Contact Info) Description 10/11/2020 Telephone [facility] Cardiology [address] [place] [address] Salas Clemons MD [address] [facility] [address] [facility] [address] [place] [address] Social History Tobacco Use Types Packs/Day Years Used Date Smoking Tobacco: Former Cigarettes 0.5 60 1 - 09/15/2019 Smokeless Tobacco: Never Alcohol Use Standard Drinks/Week Comments Not Currently 0 (1 standard drink = 0.6 oz pur e alcohol) Sex and Gender Information Value Date Recorded Sex Assigned at Not on file Legal Sex Male 9:37 AM [facility] Gender Identity Male 11/26/2019 3:10 PM [facility] Sexual Orientation Not on file documented as of this encounter Ordered Prescriptions Prescription Sig Dispense Quantity Refills Last Filled Start Date End Date carvediloL (COREG) 12.5 mg tablet Take 1 tablet (12.5 mg total) by mouth 2 (two) times a day with meals 60 tablet 2 10/11/2020 01/04/2021 documented in this encounter Miscellaneous Notes * Telephone Encounter - Riya Chatterjee RN - 10/11/2020 2:07 PM [facility] Refill sent. [facility] * Telephone Encounter - Sophia Andersen - 10/11/2020 12:37 PM CST Patient/and or Pharmacy calling to request refills on the following medications: carvedilol 12.5 mgtabs Pharmacy:[facility] documented in this encounter Plan of Treatment Not on file documented as of this encounter Visit Diagnoses Not on filedocumented in this encounter Discontinued Medications Medication Sig Discontinue Reason Start Date End Da te carvedilol (COREG) 12.5 mg tablet Take 1 tablet (12.5 mg total) by mouth 2 (two) times a day with meals Reorder 10/28/2019 10/11/2020 documented as of this encounter Care Teams Folder Inspector Relationship Specialty Start Date End Date Naveed Mcintosh MD [address] [place] [address] PCP - General Family Medicine 10/07/19 documented as of this encounter
--- OUTSIDE RECORDS SUMMARY | 2024-11-27 17:10 | XMS_ITS | Encounter Summary ---
Author Organization [facility] Address [address] [facility] [address] [place] [id number] Care Team Providers Care Biology Intern Name Role Phone No, Physician Primary Care Provider [phone] Naveed Mcintosh MD Primary Care Prov ider Naveed Mcintosh MD Primary Care Prov ider Encounter Details Date Type Department Care Team (Late st Contact Info) Description 09/16/[address] [facility] Cardiology [address] [place] [phone] Salas Clemons MD [address] [facility] [address] [facility] [address] [place], [place] [id number] Social History Tobacco Use Types Packs/Day Years Used Date Smoking Tobacco: Every Day Sex and Gender Information Value Date Recorded Sex Assigned at Not on file Legal Sex Male 9:37 AM WEB RETAILER Gender Identity Male 11/26/2019 3:10 PM WEB RETAILER Sexual Orientation Not on file documented as [...] on filedocumented in this encounter Care Teams Biology Intern Relationship Specialty Start Date End Date No, Physician PCP - General 09/19/19 10/06/19 Naveed Mcintosh MD [address] [place] [address] PCP - General Family Medicine 09/16/19 09/18/19 Naveed Mcintosh MD [address] [place] [address] PCP - General Family Medicine 10/07/19 documented as of this encounter
--- OUTSIDE RECORDS SUMMARY | 2024-11-27 17:10 | XMS_ITS | Encounter Summary ---
Author Organization [facility] Address [address] [facility] [address] [place] [address] Care Team Providers Care Still Runner Name Role Phone Naveed Mcintosh MD Primary Care Prov ider Encounter Details Date Type Department Care Team (Late st Contact Info) Description 09/19/2020 Telephone [facility] Cardiology [address] [facility] 162 [facility] [address] [place] [address] Salas Clemons MD [address] [facility] 162 [facility] [address] [place] [address] Social History Tobacco Use Types Packs/Day Years Used Date Smoking Tobacco: Former Cigarettes 0.5 60 1 - 09/15/2019 Smokeless Tobacco: Never Alcohol Use Standard Drinks/Week Comments Not Currently 0 (1 standard drink = 0.6 oz pur e alcohol) Sex and Gender Information Value Date Recorded Sex Assigned at Not on file Legal 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 PATIENT IS NOT DUE FOR A REFILL AND SAYS HE DOES NOT NEED A REFILL YET. I INFORMED HIM TO CALL THE OFFICE A COUPLE DAYS BEFORE HE NEEDS A REFILL. * Telephone Encounter - Sophia Andersen - 09/19/2020 1:28 PM CDT Patient/and or Pharmacy calling to request refills on the following medications: carvedilol 12.5 mgtabs. Pharmacy: [facility] documented in this encounter Plan of Treatment Not on file documented as of this encounter Visit Diagnoses Not on filedocumented in this encounter Care Teams Still Runner Relationship Specialty Start Date End Date Naveed Mcintosh MD [address] [place] [address] PCP - General Family Medicine 10/07/19 documented as of this encounter
--- OUTSIDE RECORDS SUMMARY | 2024-11-27 17:10 | XMS_ITS | Encounter Summary ---
Author Organization [facility] Care Team Providers Care Elementary Special Education Teacher Name Role Phone Naveed Mcintosh MD Primary Care Prov ider Encounter Details Date Type Department Care Team (Latest Contact Info) Description 10/28/2019 Travel Social History Tobacco Use Types Packs/Day Years Used Date Smoking Tobacco: Former Cigarettes 0.5 60 1 - 09/15/2019 Smokeless Tobacco: Never Alcohol Use Standard Drinks/Week Comments Not Currently 0 (1 standard drink = 0.6 oz pur e alcohol) Sex and Gender Information Value Date Recorded Sex Assigned at Not on file 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
--- OUTSIDE RECORDS SUMMARY | 2024-11-27 17:10 | XMS_ITS | Encounter Summary ---
Author Organization [facility] Care Team Providers Care Supply Chain Procurement Manager Name Role Phone Unavailable Primary Care Provider Unavailabl e Encounter Details Date Type Department Care Team (Late st Contact Info) Description 10/09/2015 - 10/09/2015 11:59 PM NOVELTY WORKER Hospital Encounter [facility] Del, Daniel Mcgee III, MD [address] [facility] [address] [place] [address] Intervertebral disc disorder with radiculopathy of lumbosacral region Social History Tobacco Use Types Packs/Day Years Used Date Smoking Tobacco: Every Day Sex and Gender Information Value Date Recorded Sex Assigned at Not on file Legal Sex Male 9:37 AM NOVELTY WORKER Gender Identity Male 11/26/2019 3:10 PM NOVELTY WORKER Sexual Orientation Not on file documented as of this encounter Plan of Treatment Not on file documented as of this encounter Procedures Procedure Name Priority Date/Time Associated Diagnosis Comments CT LUMBAR SPINE W CONTRAST Routine 10/09/2015 10:02 AM NOVELTY WORKER MYELOGRAM VIA LUMBAR PUNCTURE Routine 10/09/2015 9:44 AM NOVELTY WORKER documented in this encounter Results * CT Lumbar Spine W Contrast (10/09/2015 10:02 AM NOVELTY WORKER) Anatomical Region Laterality Modality Spine N/A Computed Tomogra phy 10/09/2015 10:0 2 AM NOVELTY WORKER Narrative 10/09/2015 11:52 AM NOVELTY WORKER DANIEL GARCIA M.D. NANDA FRANKS M.D. FINAL REPORT The radiology attending physician has personally reviewed this study, and has reviewed and/or edited this written report and agrees with it. ACC# ??Date Time ??Exam [id number] Oct 09, 2015 09:44:00 [id number] Lumbar Myelo w S&I [id number] Oct 09, 2015 10:02:[id number] Lumbar Spine with con EXAMINATION: ?? Lumbar myelogram and post myelogram CT HISTORY: 70-year-old man with right L4-L5 radiculopathy. TECHNIQUE: The risks and benefits of myelography including but not limited to infection, bleeding, seizure, epidural hematoma, headache, nausea, vomiting, irritation or damage to nerves causing pain or permanent injury, confusion, hallucinations, and/or reaction to the contrast or local medication were discussed with the patient. The patient was given the opportunity to ask questions. The patient acknowledged understanding, gave verbal and written consent, and wished to proceed. A time-out was performed prior to the procedure. Attending physician: Dr. Garcia was present for the entire procedure. The L2-L3 level was localized with fluoroscopy. Level count was based on the last thoracic rib. A rib count was not performed. The skin overlying this level was sterilely prepped, draped, and infiltrated with 1% lidocaine for local anesthesia. Under intermittent fluoroscopic guidance, a 22 gauge 3.5 inch Quincke spinal needle was inserted into the thecal sac at this level. 15 ml of Omnipaque 180 was instilled. The contrast was pooled into the lumbar region of the patient and fluoroscopic images were obtained. The patient was transferred to CT, and computed tomography of the lumbar spine was performed without intravenous contrast according to myelographic protocol. The patient tolerated the procedure well and was transferred to the nursing area for further observation and 1 hour of bedrest. COMPARISON: None available. FINDINGS: Fluoroscopy: Lumbar count was based off for the last thoracic rib. A rib count was not performed. S1 is partially lumbarized. The lumbar spine is in the normal anatomic alignment. The nerve root sheaths fill normally. No myelographic block of intrathecal contrast is present. No intradural or extradural masses are seen. Postmyelogram CT: The alignment of the lumbar spine is normal. S1 is partially lumbarized. Vertebral bodies are of normal height without compression fractures. There is severe degenerative disease at L5-S1 with vacuum phenomenon. The conus medullaris terminates at the level of T12-L1 and is normal. The aorta is mildly ectatic. L1-L2: There is a minimal disc bulge and moderate facet arthropathy. No canal stenosis. There is mild foraminal stenosis. L2-L3: There is a mild diffuse disc bulge and moderate facet arthropathy. No canal stenosis. No foraminal stenosis. L3-L4: There is a mild diffuse disc bulge, moderate facet arthropathy and ligamentum flavum hypertrophy resulting in moderate canal stenosis. No foraminal stenosis. L4-L5: There is a mild diffuse disc bulge. Mild facet arthropathy. No canal stenosis. No foraminal stenosis. L5-S1: There is a moderate diffuse disc bulge with ligamentum flavum hypertrophy and severe facet arthropathy. There is severe canal and lateral recess stenosis. There is mild left and moderate right foraminal stenosis. IMPRESSION: ?? 1. 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 There is mild left and moderate right foraminal stenosis. 2. Moderate L3-L4 canal stenosis due to disc bulge, facet osteoarthritis and ligamentum flavum hypertrophy. Requested By: Dictated By: ?? NANDA FRANKS M.D. ??on Oct 09 2015 11:12A This document has been electronically signed by: DANIEL GARCIA M.D. on Oct 09 2015 11:52A [id number] Procedure Note Provider, MD Alin - 03/28/2017 DANIEL GARCIA M.D. NANDA FRANKS M.D. FINAL REPORT The radiology attending physician has personally reviewed this study, and has reviewed and/or edited this written report and agrees with it. ACC# Date Time Exam [id number] Oct 09, 2015 09:44:00 [id number] Lumbar Myelo w S&I [id number] Oct 09, 2015 10:02:[id number] Lumbar Spine with con EXAMINATION: Lumbar myelogram and post myelogram CT HISTORY: 70-year-old man with right L4-L5 radiculopathy. TECHNIQUE: The risks and benefits of myelography including but not limited to infection, bleeding, seizure, epidural hematoma, headache, nausea, vomiting, irritation or damage to nerves causing pain or permanent injury, confusion, hallucinations, and/or reaction to the contrast or local medication were discussed with the patient. The patient was given the opportunity to ask questions. The patient acknowledged understanding, gave verbal and written consent, and wished to proceed. A time-out was performed prior to the procedure. Attending physician: Dr. Garcia was present for the entire procedure. The L2-L3 level was localized with fluoroscopy. Level count was based on the last thoracic rib. A rib count was not performed. The skin overlying this level was sterilely prepped, draped, and infiltrated with 1% lidocaine for local anesthesia. Under intermittent fluoroscopic guidance, a 22 gauge 3.5 inch Quincke spinal needle was inserted into the thecal sac at this level. 15 ml of Omnipaque 180 was instilled. The contrast was pooled into the lumbar region of the patient and fluoroscopic images were obtained. The patient was transferred to CT, and computed tomography of the lumbar spine was performed without intravenous contrast according to myelographic protocol. The patient tolerated the procedure well and was transferred to the nursing area for further observation and 1 hour of bedrest. COMPARISON: None available. FINDINGS: Fluoroscopy: Lumbar count was based off for the last thoracic rib. A rib count was not performed. S1 is partially lumbarized. The lumbar spine is in the normal anatomic alignment. The nerve root sheaths fill normally. No myelographic block of intrathecal contrast is present. No intradural or extradural masses are seen. Postmyelogram CT: The alignment of the lumbar spine is normal. S1 is partially lumbarized. Vertebral bodies are of normal height without compression fractures. There is severe degenerative disease at L5-S1 with vacuum phenomenon. The conus medullaris terminates at the level of T12-L1 and is normal. The aorta is mildly ectatic. L1-L2: There is a minimal disc bulge and moderate facet arthropathy. No canal stenosis. There is mild foraminal stenosis. L2-L3: There is a mild diffuse disc bulge and moderate facet arthropathy. No canal stenosis. No foraminal stenosis. L3-L4: There is a mild diffuse disc bulge, moderate facet arthropathy and ligamentum flavum hypertrophy resulting in moderate canal stenosis. No foraminal stenosis. L4-L5: There is a mild diffuse disc bulge. Mild facet arthropathy. No canal stenosis. No foraminal stenosis. L5-S1: There is a moderate diffuse disc bulge with ligamentum flavum hypertrophy and severe facet arthropathy. There is severe canal and lateral recess stenosis. There is mild left and moderate right foraminal stenosis. IMPRESSION: 1. 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 There is mild left and moderate right foraminal stenosis. 2. Moderate L3-L4 canal stenosis due to disc bulge, facet osteoarthritis and ligamentum flavum hypertrophy. Requested By: Dictated By: NANDA FRANKS M.D. on Oct 09 2015 11:12A This document has been electronically signed by: DANIEL GARCIA M.D. on Oct 09 2015 11:52A [id number] us Historical Provider MD [facility] CT PROCEDURES Final R esult * Myelogram Lumbar (10/09/2015 9:44 AM NOVELTY WORKER) Anatomical Region Laterality Modality Spine N/A X-Ray Angiograph y 10/09/2015 9:44 AM NOVELTY WORKER Narrative 10/09/2015 11:52 AM NOVELTY WORKER Nadege ORELLANA M.D. FINAL REPORT The radiology attending physician has personally reviewed this study, and has reviewed and/or edited this written report and agrees with it. ACC# ??Date Time ??Exam [id number] Oct 09, 2015 09:44:00 [id number] Lumbar Myelo w S&I [id number] Oct 09, 2015 10:02:[id number] Lumbar Spine with con EXAMINATION: ?? Lumbar myelogram and post myelogram CT HISTORY: 70-year-old man with right L4-L5 radiculopathy. TECHNIQUE: The risks and benefits of myelography including but not limited to infection, bleeding, seizure, epidural hematoma, headache, nausea, vomiting, irritation or damage to nerves causing pain or permanent injury, confusion, hallucinations, and/or reaction to the contrast or local medication were discussed with the patient. The patient was given the opportunity to ask questions. The patient acknowledged understanding, gave verbal and written consent, and wished to proceed. A time-out was performed prior to the procedure. Attending physician: Dr. Garcia was present for the entire procedure. The L2-L3 level was localized with fluoroscopy. Level count was based on the last thoracic rib. A rib count was not performed. The skin overlying this level was sterilely prepped, draped, and infiltrated with 1% lidocaine for local anesthesia. Under intermittent fluoroscopic guidance, a 22 gauge 3.5 inch Quincke spinal needle was inserted into the thecal sac at this level. 15 ml of Omnipaque 180 was instilled. The contrast was pooled into the lumbar region of the patient and fluoroscopic images were obtained. The patient was transferred to CT, and computed tomography of the lumbar spine was performed without intravenous contrast according to myelographic protocol. The patient tolerated the procedure well and was transferred to the nursing area for further observation and 1 hour of bedrest. COMPARISON: None available. FINDINGS: Fluoroscopy: Lumbar count was based off for the last thoracic rib. A rib count was not performed. S1 is partially lumbarized. The lumbar spine is in the normal anatomic alignment. The nerve root sheaths fill normally. No myelographic block of intrathecal contrast is present. No intradural or extradural masses are seen. Postmyelogram CT: The alignment of the lumbar spine is normal. S1 is partially lumbarized. Vertebral bodies are of normal height without compression fractures. There is severe degenerative disease at L5-S1 with vacuum phenomenon. The conus medullaris terminates at the level of T12-L1 and is normal. The aorta is mildly ectatic. L1-L2: There is a minimal disc bulge and moderate facet arthropathy. No canal stenosis. There is mild foraminal stenosis. L2-L3: There is a mild diffuse disc bulge and moderate facet arthropathy. No canal stenosis. No foraminal stenosis. L3-L4: There is a mild diffuse disc bulge, moderate facet arthropathy and ligamentum flavum hypertrophy resulting in moderate canal stenosis. No foraminal stenosis. L4-L5: There is a mild diffuse disc bulge. Mild facet arthropathy. No canal stenosis. No foraminal stenosis. L5-S1: There is a moderate diffuse disc bulge with ligamentum flavum hypertrophy and severe facet arthropathy. There is severe canal and lateral recess stenosis. There is mild left and moderate right foraminal stenosis. IMPRESSION: ?? 1. 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 There is mild left and moderate right foraminal stenosis. 2. Moderate L3-L4 canal stenosis due to disc bulge, facet osteoarthritis and ligamentum flavum hypertrophy. Requested By: Dictated By: ?? NANDA FRANKS M.D. ??on Oct 09 2015 11:12A This document has been electronically signed by: DANIEL GARCIA M.D. on Oct 09 2015 11:52A [id number] Procedure Note Provider, MD Alin - 03/28/2017 DANIEL GARCIA M.D. NANDA FRANKS M.D. FINAL REPORT The radiology attending physician has personally reviewed this study, and has reviewed and/or edited this written report and agrees with it. ACC# Date Time Exam [id number] Oct 09, 2015 09:44:00 [id number] Lumbar Myelo w S&I [id number] Oct 09, 2015 10:02:[id number] Lumbar Spine with con EXAMINATION: Lumbar myelogram and post myelogram CT HISTORY: 70-year-old man with right L4-L5 radiculopathy. TECHNIQUE: The risks and benefits of myelography including but not limited to infection, bleeding, seizure, epidural hematoma, headache, nausea, vomiting, irritation or damage to nerves causing pain or permanent injury, confusion, hallucinations, and/or reaction to the contrast or local medication were discussed with the patient. The patient was given the opportunity to ask questions. The patient acknowledged understanding, gave verbal and written consent, and wished to proceed. A time-out was performed prior to the procedure. Attending physician: Dr. Garcia was present for the entire procedure. The L2-L3 level was localized with fluoroscopy. Level count was based on the last thoracic rib. A rib count was not performed. The skin overlying this level was sterilely prepped, draped, and infiltrated with 1% lidocaine for local anesthesia. Under intermittent fluoroscopic guidance, a 22 gauge 3.5 inch Quincke spinal needle was inserted into the thecal sac at this level. 15 ml of Omnipaque 180 was instilled. The contrast was pooled into the lumbar region of the patient and fluoroscopic images were obtained. The patient was transferred to CT, and computed tomography of the lumbar spine was performed without intravenous contrast according to myelographic protocol. The patient tolerated the procedure well and was transferred to the nursing area for further observation and 1 hour of bedrest. COMPARISON: None available. FINDINGS: Fluoroscopy: Lumbar count was based off for the last thoracic rib. A rib count was not performed. S1 is partially lumbarized. The lumbar spine is in the normal anatomic alignment. The nerve root sheaths fill normally. No myelographic block of intrathecal contrast is present. No intradural or extradural masses are seen. Postmyelogram CT: The alignment of the lumbar spine is normal. S1 is partially lumbarized. Vertebral bodies are of normal height without compression fractures. There is severe degenerative disease at L5-S1 with vacuum phenomenon. The conus medullaris terminates at the level of T12-L1 and is normal. The aorta is mildly ectatic. L1-L2: There is a minimal disc bulge and moderate facet arthropathy. No canal stenosis. There is mild foraminal stenosis. L2-L3: There is a mild diffuse disc bulge and moderate facet arthropathy. No canal stenosis. No foraminal stenosis. L3-L4: There is a mild diffuse disc bulge, moderate facet arthropathy and ligamentum flavum hypertrophy resulting in moderate canal stenosis. No foraminal stenosis. L4-L5: There is a mild diffuse disc bulge. Mild facet arthropathy. No canal stenosis. No foraminal stenosis. L5-S1: There is a moderate diffuse disc bulge with ligamentum flavum hypertrophy and severe facet arthropathy. There is severe canal and lateral recess stenosis. There is mild left and moderate right foraminal stenosis. IMPRESSION: 1. 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 There is mild left and moderate right foraminal stenosis. 2. Moderate L3-L4 canal stenosis due to disc bulge, facet osteoarthritis and ligamentum flavum hypertrophy. Requested By: Dictated By: NANDA FRANKS M.D. on Oct 09 2015 11:12A This document has been electronically signed by: DANIEL GARCIA M.D. on Oct 09 2015 11:52A [id number] Historical Provider MD [facility] IR PROCEDURES Final R esult documented in this encounter Visit Diagnoses Diagnosis Intervertebral disc disorder with radiculopathy of lumbosacral region documented in this encounter
--- OUTSIDE RECORDS SUMMARY | 2024-11-27 17:10 | XMS_ITS | Encounter Summary ---
Author Organization [facility] Address [address] [facility] [facility] [address] [place] [address] Care Team Providers Care Airborne And Air Delivery Specialist Name Role Phone Naveed Mcintosh MD Primary Care Prov ider Reason for Visit * Reason Comments Follow-up 6 mo f/u Coronary Artery Disease Pneumonia 2 weeks ago and was seen at [facility] * Consultation (Routine) - Closed Specialty Diagnoses / Procedures Referred By Contac t Referred To Contact Cardiology Diagnoses Atherosclerosis of [place] coronary artery with other form of angina pectoris, unspecified whether [place] or transplanted heart (HCC) Naveed Mcintosh MD [address] [place] [address] Phone: tel: fax: [facility] Cardiology [address] [facility] [address] [place] [address] Phone: tel: fax: Referral ID Status Reason Start Date Expiration Date V isits Requested Visits Authorized [id number] Closed Specialty Services Required 08/14/2021 02/10/2022 6 6 Encounter Details Date Type Department Care Team (Latest Contact Info) Description 08/20/2021 2:45 PM CDT Office Visit [facility] Cardiology [address] [place] [address] Salas Clemons MD [address] [place] [address] Coronary artery disease involving [place] coronary artery of [place] heart without angina pectoris (Primary Dx); Atherosclerosis of [place] coronary artery with other form of angina pectoris, unspecified whether [place] or transplanted heart (HCC); Ischemic cardiomyopathy Social History Tobacco Use Types Packs/Day Years Used Date Smoking Tobacco: Former Cigarettes 0.5 60 1 - 09/15/2019 Smokeless Tobacco: Never Alcohol Use Standard Drinks/Week Comments Not Currently 0 (1 standard drink = 0.6 oz pur e alcohol) Sex and Gender Information Value Date Recorded Sex Assigned at Not on file Legal Sex Male 9:37 AM DATA SECURITY CONSULTANT Gender Identity Male 11/26/2019 3:10 PM DATA SECURITY CONSULTANT Sexual Orientation Not on file documented as of this encounter Last Filed Vital Signs Vital Sign Reading Time Taken Comments Blood Pressure 140/62 08/20/2021 2:42 PM CDT Pulse 64 08/20/2021 2:42 PM CDT Temperature - - Respiratory Rate - - Oxygen Saturation 90% 08/20/2021 2:42 PM CDT Inhaled Oxygen Concentration - - Weight 97 kg (213 lb 12.8 oz) 08/20/2021 2:42 PM CDT Height 180.3 cm (5' 11 ) 08/20/2021 2:42 PM CDT Body Mass Index 29.82 08/20/2021 2:42 PM CDT documented in this encounter Progress Notes * Salas Clemons MD - 08/20/2021 2:45 PM CDT [facility] 08/20/2021 Russell Morse is a 76 y.o. male who presents for follow up of coronary artery disease. This is a patient who presented to [facility] in August of 2019 with ischemic chest pain. He was broughtto the cardiac catheterization lab after a small troponin rise and found to have severe single-vessel coronary artery disease with subtotal occlusion of the mid LAD. I treated him with 2 [employer] drug-eluting stents with a good anatomical result. His left ventricular ejection fraction was significantly depressed at the time of his catheterization with an EF of 25-30%. His 1st 2 follow-up visits were with the nurse practitioner and he was doing well. An echo done prior to this office visit demonstrates a very nice recovery of his ejection fraction is 55-60% there is still some apical hypokinesis. After 0 1 year following the above described intervention dual anti-platelet therapy was discontinued. Patient returns today for scheduled follow-up. He is doing very well and does not describe any symptoms that sound like myocardial ischemia or symptoms of heart failure. Interestingly he said couple of weeks ago he presented with a febrile illness to the emergency room and was found to have pneumonia was admitted for a few days for antibiotics. REVIEW OF SYSTEMS General ROS: negative for [...] a day, Disp: , Rfl: 3 ??? carvediloL (COREG) 12.5 mg tablet, TAKE 1 TABLET BY MOUTH TWICE A DAY WITH FOOD, Disp: 180 tablet, Rfl: 2 ??? docusate sodium (COLACE) 100 mg capsule, Take 100 mg by mouth 2 times daily, Disp: , Rfl: ??? esomeprazole DR (NexIUM) 20 mg capsule, Take 40 mg by mouth daily before breakfast, Disp: , Rfl: ??? finasteride (PROSCAR) 5 mg tablet, Take 5 mg by mouth daily, Disp: , Rfl: 2 ??? Linzess 72 mcg capsule, Take by mouth daily, Disp: , Rfl: ??? losartan (COZAAR) 50 mg tablet, TAKE 1 TABLET BY MOUTH EVERY DAY, Disp: 90 tablet, Rfl: 2 ??? meloxicam (MOBIC) 15 mg tablet, Take [...] Disp: 100 tablet, Rfl: 0 ??? omega 4-rmn-qvt-fish oil 1,000 mg (120 mg-180 mg) capsule, [...] for component: LABALBU PHYSICAL EXAM Vitals BP 140/62 (BP Location: Left arm, Patient Position: Sitting) Pulse 64 Ht 180.3 cm (5' 11 ) Wt 97 kg (213 lb 12.8 oz) SpO2 90% BMI 29.82 kg/m?? Physical Examination: General appearance - alert, [...] noted ASSESSMENT Russell was seen today for follow-up, coronary artery disease and pneumonia. Diagnoses and all orders for this visit: Coronary artery disease involving [place] coronary artery of [place] heart without angina pectoris Atherosclerosis of [place] coronary artery with other form of angina pectoris, unspecified whether [place] or transplanted heart (HCC) - Ambulatory referral to Cardiology Ischemic cardiomyopathy PLAN/RECOMMENDATIONS No change in medical regimen Follow-up in 6 months or p.r.n. Salas Clemons MD documented in this encounter Plan of Treatment Not on file documented as of this encounter Visit Diagnoses Diagnosis Coronary artery disease involving [place] coronary artery of [place] heart without angina pectoris- Primary Atherosclerosis of [place] coronary artery with other form of angina pectoris, unspecified whether [place] or transplanted heart (HCC) Ischemic cardiomyopathy Other specified forms of chronic ischemic heart disease documented in this encounter Historical Medications * This list may reflect changes made after this encounter. Linzess 72 mcg capsule Take by mouth daily 08/01/2021 09/17/2023 added in this encounter Orders Outpatient Referral Count Last Ordered Date Fir st Ordered Date AMB REFERRAL TO CARDIOLOGY 1 08/20/2021 documented in this encounter Care Teams Airborne And Air Delivery Specialist Relationship Specialty Start Date End Date Naveed Mcintosh MD [address] [place] [address] PCP - General Family Medicine 10/07/19 documented as of this encounter
--- OUTSIDE RECORDS SUMMARY | 2024-11-27 17:10 | XMS_ITS | Encounter Summary ---
Author Organization [facility] Address [address] [facility] [address] [place] [address] Care Team Providers Care Fruit Picker Name Role Phone Naveed Mcintosh MD Primary Care Prov ider Reason for Visit * Reason Comments Follow-up fu echo, cbc, bmp * Cardiology (Routine) - Closed Specialty Diagnoses / Procedures Referred By Contac t Referred To Contact Cardiology Diagnoses Chronic obstructive pulmonary disease, unspecified Non-ST elevation (NSTEMI) myocardial infarction Naveed Mcintosh MD [address] [place] [address] Phone: tel: fax: [facility] Cardiology [address] [place] [address] Phone: tel: fax: Referral ID Status Reason Start Date Expiration Date Visits Re quested Visits Authorized [id number] Closed 09/29/2019 03/27/2020 4 4 Encounter Details Date Type Department Care Team (Latest Contact Info) Description 12/01/2019 10:45 AM NET MENDER Office Visit [facility] Cardiology [address] [place] [phone] Salas Clemons MD [address] [place] [address] Coronary artery disease involving [place] coronary artery of [place] heart without angina pectoris (Primary Dx); Ischemic [...] on file Legal Sex Male 9:37 AM NET MENDER Gender Identity Male 11/26/2019 3:10 PM NET MENDER Sexual Orientation Not on file documented as of this encounter Last Filed Vital Signs Vital Sign Reading Time Taken Comments Blood Pressure 130/68 12/01/2019 10:58 AM NET MENDER Pulse 61 12/01/2019 10:58 AM NET MENDER Temperature - - Respiratory Rate - - Oxygen Saturation 96% 12/01/2019 10:58 AM NET MENDER Inhaled Oxygen Concentration - - Weight 91.2 kg (201 lb) 12/01/2019 10:58 AM NET MENDER Height 180.3 cm (5' 11 ) 12/01/2019 10:58 AM NET MENDER Body Mass Index 28.03 12/01/2019 10:58 AM NET MENDER documented in this encounter Progress Notes * Salas Clemons MD - 12/01/2019 10:45 AM CST [facility] 12/01/2019 Russell Morse is a 74 y.o. male who presents for follow up of coronary artery disease. This is a patient who presented to [facility] in August of 2019 with ischemic chest [...] 55-60% there is still some apical hypokinesis. The patient returns to the office for follow-up today and seems to be doing well overall. Because of his longstanding history of smoking he does have an element of chronic COPD and some chronic dyspnea which of course is to be expected. He has had no ischemic chest pain since his PCI and as described above and believes he is doing well otherwise. We did discuss the standard recommendations for 1 y ear of dual anti-platelet therapy which means in the fall we will be considering discontinuing Brilinta at that time REVIEW OF SYSTEMS General ROS: negative for [...] 4- 6 HOURS, Disp: , Rfl: ??? amoxicillin (AMOXIL) 875 mg tablet, Take 875 mg by mouth 2 (two) times a day, Disp: , Rfl: ??? aspirin 81 mg [...] a day, Disp:, Rfl: ??? losartan (COZAAR) 50 mg tablet, Take 1 tablet (50 mg total) by mouth daily, Disp: 30 tablet, Rfl: 11 ??? meloxicam (MOBIC) 15 mg tablet, Take 15 mg by mouth nightly, Disp: , Rfl: ??? morphine ER (MS CONTIN) 60 mg 12 hr tablet, Take 60 mg by mouth 2 (two) times a day, Disp: , Rfl: 0 ??? omega 3-jhm-rjd-fish oil 1,000 mg (120 mg-180 mg) capsule, [...] for component: LABALBU PHYSICAL EXAM Vitals BP 130/68 (BP Location: Left arm, Patient Position: Sitting) Pulse 61 Ht 180.3 cm (5' 11 ) Wt 91.2 kg (201 lb) SpO2 96% BMI 28.03 kg/m?? Physical Examination: General appearance - alert, [...] noted ASSESSMENT Russell was seen today for follow-up. Diagnoses and all orders for this visit: Coronary artery disease involving [place] coronary artery of [place] heart without angina pectoris Ischemic cardiomyopathy PLAN/RECOMMENDATIONS Current medication should be continued without any changes. It was very good to see had the improvement in his left ventricular ejection fraction following revascularization. I will see him 6 months from now or p.r.n. Salas Clemons MD MENDER documented in this encounter Plan of Treatment Not on file documented as of this encounter Visit Diagnoses Diagnosis Coronary artery disease involving [place] coronary artery of [place] heart without angina pectoris- Primary Ischemic cardiomyopathy Other specified forms of chronic ischemic heart disease documented in this encounter Discontinued Medications Medication Sig Discontinue Reason Start Date End Da te losartan (COZAAR) 25 mg tablet Take 1 tablet (25 mg total) by mouth 2 (two) times a day Formulary change 10/31/2019 12/01/2019 documented as of this encounter Historical Medications * This list may reflect changes made after this encounter. amoxicillin (AMOXIL) 875 mg tablet Take 875 mg by mouth 2 (two) times a day 08/16/2020 added in this encounter Care Teams Fruit Picker Relationship Specialty Start Date End Date Naveed Mcintosh MD [address] [place] [address] PCP - General Family Medicine 10/07/19 documented as of this encounter
--- OUTSIDE RECORDS SUMMARY | 2024-11-27 17:10 | XMS_ITS | Encounter Summary ---
Author Organization [facility] Address [address] [facility] [address] [place] [address] Care Team Providers Care Circular Head Saw Operator Name Role Phone Naveed Mcintosh MD Primary Care Prov ider Encounter Details Date Type Department Care Team (Late st Contact Info) Description 12/19/2019 Telephone [facility] Cardiology [address] [address] Jazmyn Hernández, KALPESH [address] [address] Social History Tobacco Use Types Packs/Day Years Used Date Smoking Tobacco: Former Cigarettes 0.5 60 1 - 09/15/2019 Smokeless Tobacco: Never Alcohol Use Standard Drinks/Week Comments Not Currently 0 (1 standard drink = 0.6 oz pur e alcohol) Sex and Gender Information Value Date Recorded Sex Assigned at Not on file Legal Sex Male 9:37 AM COMMUNICATIONS ELECTRICIAN SUPERVISOR Gender Identity Male 11/26/2019 3:10 PM COMMUNICATIONS ELECTRICIAN SUPERVISOR Sexual Orientation Not on file documented as of this encounter Ordered Prescriptions Prescription Sig Dispense Quantity Refills Last Filled Start Date End Date nitroglycerin (NITROSTAT) 0.[address] 1 tablet (0.4 mg total) under the tongue every 5 (five) minutes as needed for chest pain May repeat dose q 5 min, up to 3 doses total 100 tablet 12/20/2019 documented in this encounter Miscellaneous Notes * Telephone Encounter - Ayesha Chatterjee RN - 12/20/2019 1:53 PM COMMUNICATIONS ELECTRICIAN SUPERVISOR Response sent to patient via Logi-[employer]. Prescription for NTG sent to his [facility] pharmacy in [place]. Advised in message to contact us with any further questions. UNICATIONS ELECTRICIAN SUPERVISOR * Addendum Note - Ayesha Chatterjee RN - 12/20/2019 1:50 PM CSTAddended by: AYESHA CHATTERJEE on: 12/20/2019 01:50 PM Modules accepted: Orders UNICATIONS ELECTRICIAN SUPERVISOR * Telephone Encounter - Jazmyn Hernández NP - 12/20/2019 1:11 PM COMMUNICATIONS ELECTRICIAN SUPERVISOR It is okay to send a script for sublingual nitroglycerin 0.4 mg prn. Reply for patient: Mr. Morse, When you came to the hospital with your heart attack, you were also diagnosed with a cardiomyopathy, which means the heart muscle was weakened by the heart attack. This can put you at risk for low blood pressures and often times we avoid sending people home with nitroglycerin for fear they will have a dangerously low drop in blood pressure if they use nitroglycerin at home. However, now that we have been following you, and you are recovering well, you are not having problems with low blood pressure, it is now safe to give you a prescription for nitroglycerin. - Jazmyn Hernández UNICATIONS ELECTRICIAN SUPERVISOR * Telephone Encounter - Ayesha Chatterjee RN - 12/19/2019 1:16 PM COMMUNICATIONS ELECTRICIAN SUPERVISOR KALPESH Eldridge please see message received from patient via Log[employer]. I can send in prescription for NTG if indicated/okay with you. Russell Barrera to Jazmyn Hernández NP 1:42 PM Just curious, but I was wondering why I wasn???t prescribed a nitroglycerin. My was and otherswere when they were diagnosed with heart disease. Thank you December 19, 2019 Me to Russell Morse 1:16 PM Jelena Wells Nitroglycerin is prescribed to help with intermittent episodes of angina (chest pain) in patients with heart disease. It works by relaxing and widening blood vessels to allow blood to flow more easily. This can lower the blood pressure though since it is dilating blood vessels. If you are not experiencing episodes of chest pain periodically, then you may not need to have nitroglycerin prescribed.When prescribed it can be taken as needed to prevent episodes of chest pain. I will forward your message to KALPESH Eldridge as well to comment and we can prescribe it for you if indicated. UNICATIONS ELECTRICIAN SUPERVISOR documented in this encounter Plan of Treatment Not on file documented as of this encounter Visit Diagnoses Not on filedocumented in this encounter Care Teams Circular Head Saw Operator Relationship Specialty Start Date End Date Naveed Mcintosh MD [address] [place] [address] PCP - General Family Medicine 10/07/19 documented as of this encounter
--- OUTSIDE RECORDS SUMMARY | 2024-11-27 17:10 | XMS_ITS | Encounter Summary ---
Author Organization [facility] Address [address] [facility] [address] [place] [address] Care Team Providers Care Hand Coke Drawer Name Role Phone Naveed Mcintosh MD Primary Care Prov ider Reason for Visit * Cardiology (Routine) - Closed Specialty Diagnoses / Procedures Referred By Eliana lyon Referred To Contact Diagnoses Ischemic cardiomyopathy Procedures Transthoracic Echo Complete W Doppler/CF Jazmyn Fry NP [address] [facility] [address] [address] Phone: tel: fax: [facility] Referral ID Status Reason Start Date Expiration Date Visits Re quested Visits Authorized [id number] Closed 10/28/2019 05/08/2021 1 1 Encounter Details Date Type Department Care Team (Latest Contact Info) Description 11/28/2019 11:15 AM SOUTHEAST REGIONAL SALES MANAGER Ancillary Procedure [facility] Cardiology [address] [facility] [address] [address] Ischemic cardiomyopathy Social History Tobacco Use Types Packs/Day Years Used Date Smoking Tobacco: Former Cigarettes 0.5 60 1 - 09/15/2019 Smokeless Tobacco: Never Alcohol Use Standard Drinks/Week Comments Not Currently 0 (1 standard drink = 0.6 oz pur e alcohol) Sex and Gender Information Value Date Recorded Sex Assigned at Not on file Legal Sex Male 9:37 AM SOUTHEAST REGIONAL SALES MANAGER Gender Identity Male 11/26/2019 3:10 PM SOUTHEAST REGIONAL SALES MANAGER Sexual Orientation Not on file documented as of this encounter Plan of Treatment Not on file documented as of this encounter Procedures Procedure Name Priority Date/Time Associated Diagnosis Comments TRANSTHORACIC ECHO (TTE) COMPLETE W DOPPLER/CF WO CONTRAST Routine 11/28/2019 12:42 PM SOUTHEAST REGIONAL SALES MANAGER Ischemic cardiomyopathy documented in this encounter Results * TRANSTHORACIC ECHO (TTE) COMPLETE W DOPPLER/CF WO CONTRAST (11/28/2019 12:42 PM SOUTHEAST REGIONAL SALES MANAGER) Anatomical Region Laterality Modality Ultrasound 11/28/2019 10:4 5 AM SOUTHEAST REGIONAL SALES MANAGER Narrative 11/28/2019 1:28 PM SOUTHEAST REGIONAL SALES MANAGER [facility] Cardiology [address] [facility] [address] [id number] [address] [facility] [address], [place] [address] P:[phone] P:[phone] Echocardiographic Report Patient Name: ELMER LÓPEZ : 1945 Study Date: 11/28/2019 10:45:36 AM Gender: M Tech: Location: [place] Ref.Provider: LUCY Height(Cm): 180 BSA: 2.1 Weight(Kg): [...] Findings: Interpretation Site: Exam was interpreted at [facility]. Left Ventricle: Normal left ventricular size. Mild [...] Signed By: Doroteo Cheng MD 2019-11-28 13:28:48 SOUTHEAST REG[employer]AL SALES MANAGER Procedure Note Doroteo Cheng MD - 11/28/2019 [facility] Cardiology [address] [facility] [address], [place] [address] [address] [facility] [address], [place] [address] P:[phone] P:[phone] Echocardiographic Report Patient Name: ELMER LÓPEZ : 1945 Study Date: 11/28/2019 10:45:36 AM Gender: M Tech: Location[place] Ref.Provider: LUCY Height(Cm): 180 BSA: 2.1 Weight(Kg): [...] Findings: Interpretation Site: Exam was interpreted at [facility]. Left Ventricle: Normal left ventricular size. Mild [...] Signed By: Doroteo Cheng MD 2019-11-28 13:28:48 SOUTHEAST REGIONAL SALES MANAGER Jazmyn Fry NP CV ECHO PROCEDURES Final Result documented in this encounter Visit Diagnoses Diagnosis Ischemic cardiomyopathy Other specified forms of chronic ischemic heart disease documented in this encounter Care Teams Hand Coke Drawer Relationship Specialty Start Date End Date Naveed Mcintosh MD [address] [place] [address] PCP - General Family Medicine 10/07/19 documented as of this encounter
--- OUTSIDE RECORDS SUMMARY | 2024-11-27 17:10 | XMS_ITS | Encounter Summary ---
Author Organization [facility] Care Team Providers Care Store Coordinator Name Role Phone Naveed Mcintosh MD Primary Care Prov ider Encounter Details Date Type Department Care Team (Latest Contact Info) Description 10/07/2019 Travel Social History Tobacco Use Types Packs/Day Years Used Date Smoking Tobacco: Former Cigarettes 0.5 60 1 - 09/15/2019 Smokeless Tobacco: Never Alcohol Use Standard Drinks/Week Comments Not Currently 0 (1 standard drink = 0.6 oz pur e alcohol) Sex and Gender Information Value Date Recorded Sex Assigned at Not on file Legal Sex Male 9:37 AM STAFF RADIOGRAPHER Gender Identity Male 11/26/2019 3:10 PM STAFF RADIOGRAPHER Sexual Orientation Not on file documented as of this encounter Plan of Treatment Not on file documented as of this encounter Visit Diagnoses Not on filedocumented in this encounter Care Teams Store Coordinator Relationship Specialty Start Date End Date Naveed Mcintosh MD [address] [place] [address] PCP - General Family Medicine 10/07/19 documented as of this encounter
--- OUTSIDE RECORDS SUMMARY | 2024-11-27 17:10 | XMS_ITS | Encounter Summary ---
Author Organization [facility] Address [address] [facility] [address] [place] [address] Care Team Providers Care News Internship Name Role Phone Naveed Mcintosh MD Primary Care Prov ider Reason for Visit * Reason Comments Coronary Artery Disease 6 month fu Encounter Details Date Type Department Care Team (Latest Contact Info) Description 02/25/2022 1:45 PM CDT Office Visit [facility] Cardiology [address] [phone] Salas Clemons MD [address] [address] Coronary artery disease involving [place] coronary artery of [place] heart without angina pectoris (Primary Dx); Ischemic [...] on file Legal Sex Male 9:37 AM SHERIFF'S OFFICER Gender Identity Male 11/26/2019 3:10 PM SHERIFF'S OFFICER Sexual Orientation Not on file documented as of this encounter Last Filed Vital Signs Vital Sign Reading Time Taken Comments Blood Pressure 130/64 02/25/2022 1:37 PM CDT Pulse 63 02/25/2022 1:37 PM CDT Temperature - - Respiratory Rate - - Oxygen Saturation 96% 02/25/2022 1:37 PM CDT Inhaled Oxygen Concentration - - Weight 89.4 kg (197 lb) 02/25/2022 1:37 PM CDT Height 180.3 cm (5' 11 ) 02/25/2022 1:37 PM CDT Body Mass Index 27.48 02/25/2022 1:37 PM CDT documented in this encounter Progress Notes * Salas Clemons MD - 02/25/2022 1:45 PM CDT [facility] 02/25/2022 Russell Morse is a 76 y.o. male who presents for follow up of coronary artery disease. This is a patient who presented to [facility] in August of 2019 with ischemic [...] intervention dual anti- platelet therapy was discontinued. The patient presents today for previously scheduled follow-up. There are hospital records of him being in the hospital in September of 2021 with respiratory failure related to coronavirus. He continues to do well and does not describe any symptoms to suggest myocardial ischemia. As stated above he was hospitalized 2 or 3 times last fall with symptoms of shortness of breath and had coronavirus and the residual from coronavirus. I do not read any new cardiac concerns or issues according to reviewing the records. REVIEW OF SYSTEMS General ROS: negative for [...] DAY, Disp: 90 tablet, Rfl: 2 ??? morphine ER (MS CONTIN) 60 mg 12 hr tablet, Take 60 mg by mouth 2 (two) times a day, Disp: , Rfl: 0 ??? omega 1-ycp-agy-fish oil 1,000 mg (120 mg-180 mg) capsule, [...] at bedtime, Disp: , Rfl: 1 ??? nitroglycerin (NITROSTAT) 0.4 mg SL tablet, [...] for component: LABALBU PHYSICAL EXAM Vitals BP 130/64 (BP Location: Right arm, Patient Position: Sitting) Pulse 63 Ht 180.3 cm (5' 11 ) Wt 89.4 kg (197 lb) SpO2 96% BMI 27.48 kg/m?? Physical Examination: General appearance - alert, [...] for this visit: Coronary artery disease involving [place] coronary artery of [place] heart without angina pectoris Ischemic cardiomyopathy PLAN/RECOMMENDATIONS No change in medical regimen Follow-up in 6 months or p.r.n. Salas Clemons MD documented in this encounter Plan of Treatment Not on file documented as of this encounter Visit Diagnoses Diagnosis Coronary artery disease involving [place] coronary artery of [place] heart without angina pectoris- Primary Ischemic cardiomyopathy Other specified forms of chronic ischemic heart disease documented in this encounter Discontinued Medications Medication Sig Discontinue Reason Start Date End Da te meloxicam (MOBIC) 15 mg tablet Take 15 mg by mouth nightly Therapy completed 02/25/2022 documented as of this encounter Care Teams News Internship Relationship Specialty Start Date End Date Naveed Mcintosh MD [address] [place] [address] PCP - General Family Medicine 10/07/19 documented as of this encounter
--- OUTSIDE RECORDS SUMMARY | 2024-11-27 17:10 | XMS_ITS | Encounter Summary ---
Author Organization [facility] Address [address] [facility] [address] [place] [address] Care Team Providers Care Can Handler Name Role Phone Naveed Mcintosh MD Primary Care Prov ider Reason for Visit * Reason Comments Coronary Artery Disease 6 mo f/u * Consultation (Routine) - Closed Specialty Diagnoses / Procedures Referred By Contac t Referred To Contact Cardiology Diagnoses Coronary atherosclerosis of enterprise coronary artery Ischemic cardiomyopathy Naveed Mcintosh MD [address] [place] [address] Phone: tel: fax: [facility] Cardiology [address] [place] [address] Phone: tel: fax: Referral ID Status Reason Start Date Expiration Date V isits Requested Visits Authorized [id number] Closed Specialty Services Required 02/05/2021 08/04/2021 6 6 Encounter Details Date Type Department Care Team (Latest Contact Info) Description 02/12/2021 2:45 PM CDT Office Visit [facility] Cardiology [address] [place] [address] Salas Clemons MD [address] [place] [address] Coronary artery disease involving enterprise coronary artery of enterprise heart without angina pectoris (Primary Dx); Coronary atherosclerosis of enterprise coronary artery; Ischemic cardiomyopathy Social History Tobacco Use Types Packs/Day Years Used Date Smoking Tobacco: Former Cigarettes 0.5 60 1 - 09/15/2019 Smokeless Tobacco: Never Alcohol Use Standard Drinks/Week Comments Not Currently 0 (1 standard drink = 0.6 oz pur e alcohol) Sex and Gender Information Value Date Recorded Sex Assigned at Not on file Legal Sex Male 9:37 AM CORPORATE FINANCIAL ANALYST Gender Identity Male 11/26/2019 3:10 PM CORPORATE FINANCIAL ANALYST Sexual Orientation Not on file documented as of this encounter Last Filed Vital Signs Vital Sign Reading Time Taken Comments Blood Pressure 116/68 02/12/2021 2:57 PM CDT Pulse 65 02/12/2021 2:57 PM CDT Temperature - - Respiratory Rate - - Oxygen Saturation 92% 02/12/2021 2:57 PM CDT Inhaled Oxygen Concentration - - Weight 101.1 kg (222 lb 14.4 oz) 02/12/2021 2:57 PM CDT Height 180.3 cm (5' 11 ) 02/12/2021 2:57 PM CDT Body Mass Index 31.09 02/12/2021 2:57 PM CDT documented in this encounter Progress Notes * Salas Clemons MD - 02/12/2021 2:45 PM CDT [facility] 02/12/2021 Russell Morse is a 75 y.o. male who presents for follow up of coronary artery disease. [facility] [...] dual anti- platelet therapy was discontinued. He presents today for scheduled six-month follow-up. He is doing very well and does not describe any cardiovascular symptoms or concerns. He received his 2nd barber virus vaccine this morning and is very happy about that. REVIEW OF SYSTEMS General ROS: negative [...] daily, Disp: 30 tablet, Rfl: 11 ??? buPROPion SR (ZYBAN) 150 mg 12 hr tablet, Take 150 mg by mouth 2 (two) times a day, Disp: , Rfl: 3 ??? carvediloL (COREG) 12.5 mg tablet, TAKE 1 TABLET BY MOUTH TWICE A DAY WITH FOOD, Disp: 180 tablet, Rfl: 1 ??? docusate sodium (COLACE) 100 mg capsule, Take 100 mg by mouth 2 times daily, Disp: , Rfl: ??? esomeprazole DR (NexIUM) 20 mg capsule, Take 40 mg by mouth daily before breakfast, Disp: , Rfl: ??? finasteride (PROSCAR) 5 mg tablet, Take 5 mg by mouth daily, Disp: , Rfl: 2 ??? losartan (COZAAR) 50 mg tablet, TAKE 1 TABLET BY MOUTH EVERY DAY, Disp: 90 tablet, Rfl: 1 ??? meloxicam [...] Disp: 100 tablet, Rfl: 0 ??? omega 5-zfy-szs-fish oil 1,000 mg (120 mg-180 mg) capsule, [...] for component: LABALBU PHYSICAL EXAM Vitals BP 116/68 (BP Location: Right arm, Patient Position: Sitting) Pulse 65 Ht 180.3 cm (5' 11 ) Wt 101.1 kg (222 lb 14.4 oz) SpO2 92% BMI 31.09 kg/m?? Physical Examination: General appearance - alert, [...] for this visit: Coronary artery disease involving enterprise coronary artery of enterprise heart without angina pectoris Coronary atherosclerosis of enterprise coronary artery - Ambulatory referral to Cardiology Ischemic cardiomyopathy - Ambulatory referral to Cardiology PLAN/RECOMMENDATIONS No change in medical regimen Follow-up in 6 months or p.r.n. Salas Clemons MD documented in this encounter Plan of Treatment Not on file documented as of this encounter Visit Diagnoses Diagnosis Coronary artery disease involving enterprise coronary artery of enterprise heart without angina pectoris- Primary Coronary atherosclerosis of enterprise coronary artery Ischemic cardiomyopathy Other specified forms of chronic ischemic heart disease documented in this encounter Orders Outpatient Referral Count Last Ordered Date Fir st Ordered Date AMB REFERRAL TO CARDIOLOGY 1 02/12/2021 documented in this encounter Care Teams Can Handler Relationship Specialty Start Date End Date Naveed Mcintosh MD [address] [place] [address] PCP - General Family Medicine 10/07/19 documented as of this encounter
--- OUTSIDE RECORDS SUMMARY | 2024-11-27 17:10 | XMS_ITS | Encounter Summary ---
Author Organization [facility] Care Team Providers Care Orange Picker Machine Operator Name Role Phone Naveed Mcintosh MD Primary Care Prov ider Encounter Details Date Type Department Care Team (Latest Contact Info) Description 12/01/2019 Travel Social History Tobacco Use Types Packs/Day Years Used Date Smoking Tobacco: Former Cigarettes 0.5 60 1 - 09/15/2019 Smokeless Tobacco: Never Alcohol Use Standard Drinks/Week Comments Not Currently 0 (1 standard drink = 0.6 oz pur e alcohol) Sex and Gender Information Value Date Recorded Sex Assigned at Not on file 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
--- OUTSIDE RECORDS SUMMARY | 2024-11-27 17:12 | XMS_ITS | Encounter Summary ---
Author Organization [facility] Address [address] [place] [address] Care Team Providers Care Door Clamper Name Role Phone Naveed Mcintosh MD Primary Care Provider [phone]- [phone] Encounter Details Date Type Department Care Team (Late st Contact Info) Description 05/31/2019 Abstract [facility] Neurosurgery - [address] [facility] [address] [facility] [address] [place] [address] Provider, Abstract NO ADDRESS ON FILE Social History Tobacco Use Types Packs/Day Years Used Date Smoking Tobacco: Never Assessed Sex and Gender Information Value Date Recorded Sex Assigned at Not on file Gender Identity Not on file Sexual Orientation Not on file documented as of this encounter Plan of Treatment Not on file documented as of this encounter Visit Diagnoses Not on filedocumented in this encounter Care Teams Door Clamper Relationship Specialty Start Date End Date Naveed Mcintosh MD [address] [place] [address] [address] [place] [address] PCP - General Family Practice 05/18/19 documented as of this encounter
--- OUTSIDE RECORDS SUMMARY | 2024-11-27 17:12 | XMS_ITS | Encounter Summary ---
Author Organization [facility] Address [address] [place] [address] Care Team Providers Care Welt Maker Name Role Phone Naveed Mcintosh MD Primary Care Provider [phone]- [phone] Reason for Visit * Reason Comments Consult * Eval and Treat (Routine) - Closed Specialty Diagnoses / Procedures Referred By Contac t Referred To Contact Neurosurgery Diagnoses Sciatica, left side left msg on pcp [id number] Procedures PT EVAL AND TREAT OFFICE VISIT NEW PATIENT Naveed Mcintosh MD [address] [facility] [address] [place] [address] [place] [address] [facility] [address] [place] [address] Referral ID Status Reason Start Date Expiration Date Visits Re quested Visits Authorized [id number] Closed 05/16/2019 06/15/2020 3 3 Encounter Details Date Type Department Care Team (Latest Contact Info) Description 05/31/2019 10:15 AM CDT Office Visit [facility] [place] [id number] [address] [place] [address] [facility] [address] [place] [address] Spondylolisthesis at L5-S1 level (Primary Dx); Neuritis or radiculitis due to rupture of lumbar intervertebral disc Social History Tobacco Use Types Packs/Day Years Used Date Smoking Tobacco: Every Day Cigarettes Alcohol Use Standard Drinks/Week Comments Never 0 (1 standard drink = 0.6 oz pur e alcohol) Sex and Gender Information Value Date Recorded Sex Assigned at Not on file Gender Identity Not on file Sexual Orientation Not on file documented as of this encounter Last Filed Vital Signs Vital Sign Reading Time Taken Comments Blood Pressure 177/77 06/01/2019 1:33 PM CDT Pulse - - Temperature - - Respiratory Rate - - Oxygen Saturation - - Inhaled Oxygen Concentration - - Weight 83.9 kg (185 lb) 06/01/2019 1:33 PM CDT Height 180.3 cm (5' 11 ) 06/01/2019 1:33 PM CDT Body Mass Index 25.8 06/01/2019 1:33 PM CDT documented in this encounter Progress Notes * Lucio Vaughan MD - 05/31/2019 10:18 AM CDT I had the pleasure of seeing Lito today at [facility] here in [place], [place]. Russell Nieto ray 74 y.o. male who comes today with complaints of left leg weakness that has been present since a fall in February of this year. He has had chronic back pain for which she has had morphine of 60 mg twice a day. He is a smoker and has continued to smoke.. Past Medical History: Diagnosis Date ??? Arthritis ??? Cancer ??? COPD (chronic obstructive pulmonary disease) ??? Depression ??? Polio Past Surgical History: Procedure Laterality Date ??? HX ROTATOR CUFF REPAIR ??? HX SURGICAL OTHER jaw Social History Socioeconomic History ??? Marital status: Spouse name: Not on file ??? Number of children: Not on file ??? Years of education: Not on file ??? Highest education level: Not on file Occupational History Employer: RETIRED Social Needs ??? Financial resource strain: Not on file ??? Food insecurity: Worry: Not on file Inability: Not on file ??? Transportation needs: Medical: Not on file Non-medical: Not on file Tobacco Use ??? Smoking status: Current Every Day Smoker Packs/day: 1.00 Substance and Sexual Activity ??? Alcohol use: Never Frequency: Never ??? Drug use: Never ??? Sexual activity: Not on file Lifestyle ??? Physical activity: Days per week: Not on file Minutes per session: Not on file ??? Stress: Not on file Relationships ??? Social connections: Talks on phone: Not on file Gets together: Not on file Attends episcopal service: Not on file Active member of club or organization: Not on file Attends meetings of clubs or organizations: Not on file Relationship status: Not on file ??? Intimate partner violence: Fear of current or ex partner: Not on file Emotionally abused: Not on file Physically abused: Not on file Forced sexual activity: Not on file Other Topics Concern ??? Not on file Social History Narrative ??? Not on file Family History Problem Relation Name Age of Onset ??? Diabetes Mother ??? Bleeding Problem Father ??? Heart Disease Sister ??? Other Sister obesity ??? Diabetes Brother ??? Cancer Brother ??? Heart Disease Brother ??? COPD Brother Current Outpatient Medications on File Prior to Visit Medication Sig Dispense Refill ??? ibuprofen (MOTRIN) 200 mg tablet Take 200 mg by mouth every 6 hours as needed for Pain, Mild. ??? docusate sodium (STOOL SOFTENER) 100 mg capsule Take 100 mg by mouth 2 times daily. ??? esomeprazole (NexIUM) 20 mg Capsule, Delayed Release(E.C.) Take 20 mg by mouth daily before breakfast. ??? qjzxlccrmqgjc-gbgpeacs-jeiisi (CENTRUM SILVER) Tablet Take 1 Tablet by mouth daily. ??? Lvbef-1-AHL-EPA-Fish Oil (FISH OIL) 1,000 mg (120 mg-180 mg) Capsule Take by mouth. ??? meloxicam (MOBIC) 15 mg tablet TAKE 1 TABLET BY MOUTH EVERY DAY 1 ??? finasteride (PROSCAR) 5 mg tablet TAKE 1 TABLET BY MOUTH EVERY DAY 1 ??? buPROPion HCl, smoking deter, (ZYBAN) 150 mg Sustained Release 12 hour tablet TAKE 1 TABLET BY MOUTH TWICE A DAY 3 ??? sertraline (ZOLOFT) 50 mg tablet TAKE 1 TABLET BY MOUTH EVERY DAY 1 ??? simvastatin (ZOCOR) 10 mg tablet TAKE ONE TABLET BY MOUTH AT BEDTIME. PLEASE CALL TO SCHEDULEANNUAL APPOINTMENT 1 ??? tamsulosin (FLOMAX) 0.4 mg capsule TAKE ONE CAPSULE BY MOUTH EVERY DAY 1 ??? morphine (MS CONTIN) 60 mg Controlled Release tablet TAKE 1 TABLET BY MOUTH TWICE A DAY 0 ??? CHANTIX 1 mg Tablet TAKE 1 TABLET BY MOUTH TWICE A DAY 0 ??? PROAIR HFA 90 mcg/actuation inhaler INHALE 2 PUFFS EVERY 4-6 HOURS 1 ??? SYMBICORT 160-4.5 mcg/actuation HFA Aerosol Inhaler INHALATION 2 PUFFS TWICE A DAY 1 ??? SPIRIVA RESPIMAT 2.5 mcg/actuation Mist INHALE 2 PUFFS BY MOUTH ONCE DAILY 2 ??? traZODone (DESYREL) 50 mg tablet Take 50 mg by mouth daily at bedtime. 1 No current facility-administered medications on file prior to visit. No Known Allergies Review of Systems Constitutional: Positive for fatigue. Negative for chills and fever. HENT: Positive for hearing loss. Negative for congestion, ear discharge, ear pain, postnasal drip, sinus pain, sneezing, sore throat, tinnitus, trouble swallowing and voice change. Eyes: Negative for pain, redness and visual disturbance. Respiratory: Positive for cough, shortness of breath and wheezing. Negative for chest tightness. Cardiovascular: Negative for chest pain. Gastrointestinal: Positive for constipation. Negative for abdominal distention, abdominal pain, nausea and vomiting. Endocrine: Negative for cold intolerance, heat intolerance and polyuria. Genitourinary: Positive for difficulty urinating, dysuria and frequency. Negative for hematuria. Musculoskeletal: Positive for arthralgias and back pain. Negative for gait problem, neck pain and neck stiffness. Skin: Negative for rash. + skin spot Allergic/Immunologic: Negative for immunocompromised state. Neurological: Positive for weakness and numbness. Negative for dizziness, seizures, facial asymmetry, speech difficulty and headaches. Hematological: Bruises/bleeds easily. Psychiatric/Behavioral: Negative for agitation, behavioral problems, confusion, hallucinations and suicidal ideas. The patient is not nervous/anxious. Physical Exam Constitutional: He is oriented to person, place, and time. He appears well- developed and well-nourished. HENT: Head: Normocephalic and atraumatic. Eyes: Pupils are equal, round, and reactive to light. Conjunctivae and EOM are normal. Neck: Normal range of motion. Neck supple. Cardiovascular: Normal rate and regular rhythm. Pulmonary/Chest: Breath sounds normal. Abdominal: Soft. Musculoskeletal: Left foot drop noted. He has weak inversion and eversion. Neurological: He is alert and oriented to person, place, and time. He displays normal reflexes. No cranial nerve deficit or sensory deficit. Coordination normal. Skin: Skin is warm and dry. Psychiatric: He has a normal mood and affect. His behavior is normal. Thought content normal. Diagnostic Data: The patient has an MRI of the lumbar spine shows a left L4-5 disc herniation. He also has significant if not severe lumbar stenosis at L5-S1 with a grade 1 spondylolisthesis.. ASSESSMENT: Encounter Diagnoses Name Primary? Spondylolisthesis at L5-S1 level Yes ??? Neuritis or radiculitis due to rupture of lumbar intervertebral disc PLAN: No orders of the defined types were placed in this encounter. Body mass index is 25.8 kg/m??. BMI within normal limits TOBACCO COUNSELING He was counseled to discontinue tobacco use. Assessment and Plan: My assessment at this point is that Russell Nieto is suffering from a foot drop due to both the L4-L5 disc herniation on the left and possibly lumbar stenosis with listhesis at L5-S1. He is however a smoker and does not want surgery. Surgery is not a realistic option so long as he isnicotine positive. I also have significant reservations due to his long-term chronic pain and significant morphine usage. He simply would be a difficult patient to take care of postoperatively. At this point time I will recommend physical therapy and a brace for that left foot. We are considering an EMG nerve conduction test to confirm that it is a L5 lesion and not a neuropathy. He however had weak inversion as well as eversion indicating possible and probable L5 root lesion over a peroneal neuropathy. In any case I do not believe that surgery at this point is in his best interest. I think there is more risk than benefit. We are going to find out if the EMG nerve conduction test is within his budget based on the co-pay necessary. If he elects to have this procedure we will move forward with the nerve conduction test and see him back to follow-up. There is also a question of dementia that is progressing. This obviously will also impact his decision making. I do appreciate being included in his care. I welcome any questions anyone may have.. Thank you documented in this encounter Plan of Treatment Not on file documented as of this encounter Visit Diagnoses Diagnosis Spondylolisthesis at L5-S1 level- Primary Neuritis or radiculitis due to rupture of lumbar intervertebral disc Displacement of lumbar intervertebral disc without myelopathy documented in this encounter Care Teams Welt Maker Relationship Specialty Start Date End Date Naveed Mcintosh MD [address] [address] PCP - General Family Practice 05/18/19 documented as of this encounter
--- OUTSIDE RECORDS SUMMARY | 2024-11-27 17:12 | XMS_ITS | Encounter Summary ---
Author Organization [facility] Address [address] [place] [address] Care Team Providers Care Planner Chief Name Role Phone Naveed Mcintosh MD Primary Care Provider [phone]- [phone] Reason for Referral * Outpatient Services (Routine) - Closed Specialty Diagnoses / Procedures Referred By Eliana lyon Referred To Contact Diagnoses Spondylolisthesis at L5-S1 level Procedures EMG [place] [address] [place] [address] Referral ID Status Reason Start Date Expiration Date V isits Requested Visits Authorized [id number] Closed [facility] CTS 06/07/2019 07/07/2020 1 1 Encounter Details Date Type Department Care Team (Latest Contact Info) Description 06/07/2019 Orders Only [facility] Neurosurgery - [address] [place] [address] [facility] [address] [place] [address] [place] [address] [facility] [address] [place] [address] Spondylolisthesis at L5-S1 level (Primary Dx) Social History Tobacco Use Types [...] of this encounter Plan of Treatment Scheduled Orders Name Type Priority Associated Diagnoses Orde r Schedule EMG WITH NERVE CONDUCTION Neurology Routine Spondylolisthesis at L5-S1 level Ordered: 06/07/2019 documented as of this encounter Visit Diagnoses Diagnosis Spondylolisthesis at L5-S1 level- Primary documented in this encounter Care Teams Planner Chief Relationship Specialty Start Date End Date Naveed Mcintosh MD [address] [address] PCP - General Family Practice 05/18/19 documented as of this encounter
--- OUTSIDE RECORDS SUMMARY | 2024-11-27 17:12 | XMS_ITS | Encounter Summary ---
Author Organization [facility] Address [address] [place] [address] Care Team Providers Care Yard Inspector Name Role Phone Naveed Mcintosh MD Primary Care Provider +1- [phone] Encounter Details Date Type Department Care Team (Late st Contact Info) Description 05/23/2019 Abstract [facility] Neurosurgery - [address] [facility] [address] [facility] [facility] [address] [place] [address] Provider, Abstract NO ADDRESS ON [...] on filedocumented in this encounter Care Teams Yard Inspector Relationship Specialty Start Date End Date Naveed Mcintosh MD [address] [place] [address] [address] [place] [address] PCP - General Family Practice 05/18/19 documented as of this encounter
--- OUTSIDE RECORDS SUMMARY | 2024-11-27 17:12 | XMS_ITS | Encounter Summary ---
Author Organization [facility] Address [address] [place] [address] Care Team Providers Care Community Manager Name Role Phone Naveed Mcintosh MD Primary Care Provider +1- [phone] Encounter Details Date Type Department Care Team (Late st Contact Info) Description 07/14/2019 Orders Only [facility] Neurosurgery - [address] [address] [facility] [address] [place] [address] Provider, Abstract NO ADDRESS ON [...] Procedure Name Priority Date/Time Associated Diagnosis Comments EMG WITH NERVE CONDUCTION Routine 07/12/2019 documented in this encounter Results * EMG WITH NERVE CONDUCTION (07/12/2019) Abstract Provider NEUROLOGY ORDERABLES documented in this encounter Visit Diagnoses Not on filedocumented in this encounter Care Teams Community Manager Relationship Specialty Start Date End Date Naveed Mcintosh MD [address] [facility] [address] [place] [address] PCP - General Family Practice 05/18/19 documented as of this encounter
--- OUTSIDE RECORDS SUMMARY | 2024-11-27 17:12 | XMS_ITS | Clinical Summary ---
Author Organization [employer] [address] [facility] Address [address] [place] [address] Care Team Providers Care Enrober Name Role Phone Naveed Mcintosh MD Primary Care Provider +1- [phone] Allergies No known active allergies Medications Medication Sig Dispensed Refills Start Date End Date Status meloxicam (MOBIC) 15 mg tablet TAKE 1 TABLET BY MOUTH EVERY DAY 1 05/18/2019 Active finasteride (PROSCAR) 5 mg tablet TAKE 1 TABLET BY MOUTH EVERY DAY 1 03/31/2019 Active buPROPion HCl, smoking deter, (ZYBAN) 150 mg Sustained Release 12 hour tablet TAKE 1 TABLET BY MOUTH TWICE A DAY 3 05/23/2019 Active sertraline (ZOLOFT) 50 mg tablet TAKE 1 TABLET BY MOUTH EVERY DAY 1 04/06/2019 Active simvastatin (ZOCOR) 10 mg tablet TAKE ONE TABLET BY MOUTH AT BEDTIME. PLEASE CALL TO SCHEDULE ANNUAL APPOINTMENT 1 04/19/2019 Active tamsulosin (FLOMAX) 0.4 mg capsule TAKE ONE CAPSULE BY MOUTH EVERY DAY 1 04/19/2019 Active morphine (MS CONTIN) 60 mg Controlled Release tablet TAKE 1 TABLET BY MOUTH TWICE A DAY 0 05/18/2019 Active CHANTIX 1 mg Tablet TAKE 1 TABLET BY MOUTH TWICE A DAY 0 05/23/2019 Active PROAIR HFA 90 mcg/actuation inhaler INHALE 2 PUFFS EVERY 4-6 HOURS 1 04/19/2019 Active SYMBICORT 160-4.5 mcg/actuation HFA Aerosol Inhaler INHALATION 2 PUFFS TWICE A DAY 1 04/25/2019 Active SPIRIVA RESPIMAT 2.5 mcg/actuation Mist INHALE 2 PUFFS BY MOUTH ONCE DAILY 2 03/31/2019 Active traZODone (DESYREL) 50 mg tablet Take 50 mg by mouth daily at bedtime. 1 04/15/2019 Active ibuprofen (MOTRIN) 200 mg tablet Take 200 mg by mouth every 6 hours as needed for Pain, Mild. Active docusate sodium (STOOL SOFTENER) 100 mg capsule Take 100 mg by mouth 2 times daily. Active esomeprazole (NexIUM) 20 mg Capsule, Delayed Release(E.C.) Take 20 mg by mouth daily before breakfast. Active multivitamins-minera ls-lutein (CENTRUM SILVER) Tablet Take 1 Tablet by mouth daily. Active Szlnw-9-IRH-EPA-Fish Oil (FISH OIL) 1,000 mg (120 mg-180 mg) Capsule Take by mouth. Active Active Problems Problem Noted Date Diagnosed Date Neuritis or radiculitis due to rupture of lumbar intervertebral disc 05/31/2019 Spondylolisthesis at L5-S1 level 05/31/2019 Family History Medical History Relation Name Comments COPD Brother Cancer Brother Diabetes Brother Heart Disease Brother Bleeding Problem Father Diabetes Mother Heart Disease Sister Other Sister obesity Relation Name Status Comments Brother Father Mother Sister Social History Tobacco Use Types Packs/Day Years Used Date Smoking Tobacco: Every Day Cigarettes Alcohol Use Standard Drinks/Week Comments Never 0 (1 standard drink = 0.6 oz pur e alcohol) Sex and Gender Information Value Date Recorded Sex Assigned at Not on file Gender Identity Not on file Sexual Orientation Not on file Last Filed [...] Mass Index 25.8 06/01/2019 1:33 PM CDT Plan of Treatment Health Maintenance Due Date Last Done Comments PNEUMOCOCCAL VACCINE 65+ YEARS (1 of 2 - PCV) 03/07/19 50 DTAP/TDAP/TD VACCINES (1 - Tdap) 1963 ZOSTER VACCINE (1 of 2) 1994 RSV VACCINE (60+ or ) (1 - 1-dose 75+ series) 2019 INFLUENZA VACCINE (#1) 2024 Care Teams Enrober Relationship Specialty Start Date End Date Naveed Mcintosh MD [address] [address] PCP - General Family Practice 05/18/19
--- OUTSIDE RECORDS SUMMARY | 2024-11-27 17:12 | XMS_ITS | Encounter Summary ---
Author Organization [facility] Address [address] [place] [address] Care Team Providers Care Manager Medicare Marketing Name Role Phone Naveed Mcintosh MD Primary Care Provider +1- [phone] Encounter Details Date Type Department Care Team (Late st Contact Info) Description 05/20/2019 Orders Only [facility] Neurosurgery - [address] [address] [facility] [address] [place] [address] Provider, Abstract NO ADDRESS ON [...] Procedure Name Priority Date/Time Associated Diagnosis Comments MRI LUMBAR WO CONTRAST Routine 05/12/2019 documented in this encounter Results * MRI LUMBAR WO CONTRAST (05/12/2019) Anatomical Region Laterality Modality Spine Other Abstract Provider MR ORDERABLES documented in this encounter Visit Diagnoses Not on filedocumented in this encounter Care Teams Manager Medicare Marketing Relationship Specialty Start Date End Date Naveed Mcintosh MD 1 [facility] 100 [place] [address] PCP - General Family Practice 05/18/19 documented as of this encounter
--- OUTSIDE RECORDS SUMMARY | 2024-11-27 17:12 | XMS_ITS | Encounter Summary ---
Author Organization [facility] Address [address] [place] [address] Care Team Providers Care Diesel Powerplant Supervisor Name Role Phone Unavailable Primary Care Provider Unavailabl e Encounter Details Date Type Department Care Team (Latest Contact Info) Description 05/12/2019 4:00 PM CDT - 05/12/2019 11:59 PM CDT Hospital Encounter [facility] [address] [address] [facility], External Provider [address] [place] [address] Discharge Disposition: Home or Self Care Social History Tobacco Use Types Packs/Day Years Used Date Smoking Tobacco: Never Assessed Sex and Gender Information Value Date Recorded Sex Assigned at Not on file Gender Identity Not on file Sexual Orientation Not on file documented as of this encounter Medications at Time of Discharge Medication Sig Dispensed Refills Start Date End Date finasteride (PROSCAR) 5 mg tablet TAKE 1 TABLET BY MOUTH EVERY DAY 03/31/2019 sertraline (ZOLOFT) 50 mg tablet TAKE 1 TABLET BY MOUTH EVERY DAY 04/06/2019 simvastatin (ZOCOR) 10 mg tablet TAKE ONE TABLET BY MOUTH AT BEDTIME. PLEASE CALL TO SCHEDULE ANNUAL APPOINTMENT 1 04/19/2019 tamsulosin (FLOMAX) 0.4 mg capsule TAKE ONE CAPSULE BY MOUTH EVERY DAY 04/19/2019 PROAIR HFA 90 mcg/actuation inhaler INHALE 2 PUFFS EVERY 4-6 HOURS 04/19/2019 SYMBICORT 160-4.5 mcg/actuation HFA Aerosol Inhaler INHALATION 2 PUFFS TWICE A DAY 1 04/25/2019 SPIRIVA RESPIMAT 2.5 mcg/actuation Mist INHALE 2 PUFFS BY MOUTH ONCE DAILY 2 03/31/2019 traZODone (DESYREL) 50 mg tablet Take 50 mg by mouth daily at bedtime. 1 04/15/2019 documented as of this encounter Plan of Treatment Not on file documented as of this encounter Procedures Procedure Name Priority Date/Time Associated Diagnosis Comments MRI PRIOR STUDY Routine 05/12/2019 4:00 PM CDT Pain documented in this encounter Results * MRI PRIOR STUDY (05/12/2019 4:00 PM CDT) Narrative 06/07/2019 8:57 PM CDT This exam was auto finalized to allow images to be scanned to PACS. External Provider [facility] MR ORDERABLES documented in this encounter Visit Diagnoses Diagnosis Pain Generalized pain documented in this encounter
--- OUTSIDE RECORDS SUMMARY | 2024-11-27 17:12 | XMS_ITS | Encounter Summary ---
Author Organization [facility] Address [address] [place] [address] Care Team Providers Care Land Department Head Name Role Phone Naveed Mcintosh MD Primary Care Provider +1- [phone] Encounter Details Date Type Department Care Team (Late st Contact Info) Description 05/31/2019 Abstract [facility] Neurosurgery - [address] [facility] [address] [facility] [address] [place] [address] Provider, Abstract NO ADDRESS ON [...] on filedocumented in this encounter Care Teams Land Department Head Relationship Specialty Start Date End Date Naveed Mcintosh MD [address] [place] [address] [address] [place] [address] PCP - General Family Practice 05/18/19 documented as of this encounter
--- OUTSIDE RECORDS SUMMARY | 2024-11-27 17:12 | XMS_ITS | Encounter Summary ---
Author Organization [facility] Address [address] [place] [address] Care Team Providers Care Fisher Trammel Net Name Role Phone Naveed Mcintosh MD Primary Care Provider +1- [phone] Encounter Details Date Type Department Care Team (Late st Contact Info) Description 05/31/2019 Abstract [facility] Neurosurgery - [address] [facility] [address] [place] [facility] [facility] [address] [place] [address] Provider, Abstract NO ADDRESS ON [...] on filedocumented in this encounter Care Teams Fisher Trammel Net Relationship Specialty Start Date End Date Naveed Mcintosh MD [address] [place] [address] [address] [place] [address] PCP - General Family Practice 05/18/19 documented as of this encounter
--- OUTSIDE RECORDS SUMMARY | 2024-11-27 21:02 | XMS_ITS | Encounter Summary ---
Author Organization [facility] Address [address] [facility] [address] [place] [address] Care Team Providers Care Hotel Maintenance Worker Name Role Phone Naveed Mcintosh MD Primary Care Prov ider Reason for Visit * Reason Comments Follow-up fu echo, cbc, bmp * Cardiology (Routine) - Closed Specialty Diagnoses / Procedures Referred By Contac t Referred To Contact Cardiology Diagnoses Chronic obstructive pulmonary disease, unspecified Non-ST elevation (NSTEMI) myocardial infarction Naveed Mcintosh MD [address] [place] [address] Phone: tel: fax: [facility] Cardiology [address] [place] [address] Phone: tel: fax: Referral ID Status Reason Start Date Expiration Date Visits Re quested Visits Authorized [id number] Closed 09/29/2019 03/27/2020 4 4 Encounter Details Date Type Department Care Team (Latest Contact Info) Description 12/01/2019 10:45 AM COPYWRITER Office Visit [facility] Cardiology [address] [place] [address] Salas Clemons MD [address] [place] [address] 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 (Primary Dx); Ischemic [...] on file Legal Sex Male 9:37 AM COPYWRITER Gender Identity Male 11/26/2019 3:10 PM COPYWRITER Sexual Orientation Not on file documented as of this encounter Last Filed Vital Signs Vital Sign Reading Time Taken Comments Blood Pressure 130/68 12/01/2019 10:58 AM COPYWRITER Pulse 61 12/01/2019 10:58 AM COPYWRITER Temperature - - Respiratory Rate - - Oxygen Saturation 96% 12/01/2019 10:58 AM COPYWRITER Inhaled Oxygen Concentration - - Weight 91.2 kg (201 lb) 12/01/2019 10:58 AM COPYWRITER Height 180.3 cm (5' 11 ) 12/01/2019 10:58 AM COPYWRITER Body Mass Index 28.03 12/01/2019 10:58 AM COPYWRITER documented in this encounter Progress Notes * Salas Clemons MD - 12/01/2019 10:45 AM CST [facility] FOLLOW [facility] 12/01/2019 Russell Morse is a 74 y.o. male who presents for follow up of coronary artery disease. This is a patient who presented to [facility] in August of 2019 with ischemic chest [...] day, Disp: , Rfl: 0 ??? 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 It was very good to see had the improvement in his left ventricular ejection fraction following revascularization. I will see him 6 months from now or p.r.n. 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
--- OUTSIDE RECORDS SUMMARY | 2024-11-27 21:02 | XMS_ITS | Encounter Summary ---
Author Organization [facility] Care Team Providers Care Account Support Rep Name Role Phone Naveed Mcintosh MD Primary [...] on file Legal Sex Male 9:37 AM COUNTER DISH CARRIER Gender Identity Male 11/26/2019 3:10 PM COUNTER DISH CARRIER Sexual Orientation Not on file documented as of this encounter Plan of Treatment Not on file documented as of this encounter Visit Diagnoses Not on filedocumented in this encounter Care Teams Account Support Rep Relationship Specialty Start Date End Date Naveed Mcintosh MD [address] [place] [address] PCP - General Family Medicine 10/07/19 documented as of this encounter
--- OUTSIDE RECORDS SUMMARY | 2024-11-27 21:02 | XMS_ITS | Encounter Summary ---
Author Organization [facility] Address [address] [facility] [address] [place] [address] Care Team Providers Care Patient Service Associate Name Role Phone Naveed Mcintosh MD Primary Care Prov ider Reason for Visit * Reason Comments Coronary Artery Disease 6 month follow u p. * Consultation (Routine) - Closed Specialty Diagnoses / Procedures Referred By Contac t Referred To Contact Cardiology Diagnoses Essential hypertension, malignant Salas Clemons MD [address] [address] Phone: tel: fax: Salas Clemons MD [address] [facility] [address] [address] Phone: tel: fax: Referral ID Status Reason Start Date Expiration Date V isits Requested Visits Authorized [id number] Closed Specialty Services Required 03/02/2023 04/03/2024 1 1 Encounter Details Date Type Department Care Team (Late st Contact Info) Description 03/03/2023 2:15 PM CDT Office Visit [facility] Cardiology [address] [phone] Salas Clemons MD [address] [place] [address] Coronary artery disease involving [place] coronary artery of [place] heart without angina pectoris (Primary Dx); Ischemic [...] on file Legal Sex Male 9:37 AM BURN CREW MEMBER Gender Identity Male 11/26/2019 3:10 PM BURN CREW MEMBER Sexual Orientation Not on file documented as [...] [facility]ARE [facility] CLINIC FOLLOW UP 03/03/2023 Russell Mosre is a 77 y.o. male who presents for follow up of coronary artery disease. This is a patient who presented to [facility] in August of 2019 with ischemic [...] ill last month and was hospitalized at [place]. I was not asked tosee him by [...] for this visit: Coronary artery disease involving kob[place] coronary artery of kob[place] heart without angina pectoris Ischemic cardiomyopathy PLAN/RECOMMENDATIONS No change in medical regimen Follow-up in 6 months or p.r.n. Salas Clemons MD documented in this encounter Plan of Treatment Not on file documented as of this encounter Visit Diagnoses Diagnosis Coronary artery disease involving kobuk coronary artery of kob[place] heart without angina pectoris- Primary Ischemic cardiomyopathy [...] 03/05/2023 documented in this encounter Care Teams Patient Service Associate Relationship Specialty Start Date End Date Naveed Mcintosh MD [address] [place] [address] PCP - General Family Medicine 10/07/19 documented as of this encounter
--- OUTSIDE RECORDS SUMMARY | 2024-11-27 21:02 | XMS_ITS | Encounter Summary ---
Author Organization [facility] Care Team Providers Care Plant Quality Manager Name Role Phone Unavailable Primary Care Provider Unavailabl e Encounter Details Date Type Department Care Team (Late st Contact Info) Description 09/26/2015 - 09/26/2015 11:59 PM MAINTENANCE CONSTRUCTION HELPER Hospital Encounter [facility] HAMCONAngel Mathis, Daniel Mcgee Jr., MD [address] [address] Other intervertebral disc degeneration, lumbosacral region Social History Tobacco Use Types Packs/Day Years Used Date Smoking Tobacco: Every Day Sex and Gender Information Value Date Recorded Sex Assigned at Not on file Legal Sex Male 9:37 AM MAINTENANCE CONSTRUCTION HELPER Gender Identity Male 11/26/2019 3:10 PM MAINTENANCE CONSTRUCTION HELPER Sexual Orientation Not on file documented as of this encounter Plan of Treatment Not on file documented as of this encounter Procedures Procedure Name Priority Date/Time Associated Diagnosis Comments XR SPINE LUMBAR ROUTINE Routine 09/26/2015 11:24 AM MAINTENANCE CONSTRUCTION HELPER documented in this encounter Results * XR Lumbar Spine Routine (09/26/2015 11:24 AM MAINTENANCE CONSTRUCTION HELPER) Anatomical Region Laterality Modality L-spine N/A Radiographic Kristina ging 09/26/2015 11:2 4 AM MAINTENANCE CONSTRUCTION HELPER Narrative 09/26/2015 5:59 PM MAINTENANCE CONSTRUCTION HELPER SHANEL ENCISO M.D. SAEID MICHEL M.D. FINAL REPORT The radiology attending physician has personally reviewed this study, and has reviewed and/or edited this written report and agrees with it. ACC# ??Date Time ??Exam [id number] Sep 26, 2015 11:24:00 [id number] Spine Lumbar min 4 views ACC# ??Date Time ??Exam [id number] Sep 26, 2015 11:24:00 21210 Spine Lumbar min 4 views EXAMINATION: ?Lumbar [...] SHANEL ENCISO M.D. on Sep ??2014 ??5:59P [id number] Procedure Note Provider, MD Alin - 03/28/2017 SHANEL ENCISO M.D. SAEID MICHEL M.D. FINAL REPORT The radiology attending physician has personally reviewed this study, and has reviewed and/or edited this written report and agrees with it. ACC# Date Time Exam [id number] Sep 26, 2015 11:24:00 [id number] Spine Lumbar min 4 views ACC# Date Time Exam [id number] Sep 26, 2015 11:24:00 [id number] Spine Lumbar min 4 views EXAMINATION: Lumbar [...] ENCISO M.D. on Sep 26 2015 5:59P [id number] us Historical Provider MD [facility] XR PROCEDURES Final R esult documented in this encounter Visit Diagnoses Diagnosis Other intervertebral disc degeneration, lumbosacral region documented in this encounter
--- OUTSIDE RECORDS SUMMARY | 2024-11-27 21:02 | XMS_ITS | Encounter Summary ---
Author Organization [facility] Facility Care Team Providers Care Professor Of Management Name Role Phone Naveed Mcintosh MD Primary [...] on file Legal Sex Male 9:37 AM NEWSPAPER DELIVERY DRIVER Gender Identity Male 11/26/2019 3:10 PM NEWSPAPER DELIVERY DRIVER Sexual Orientation Not on file documented as of this encounter Plan of Treatment Not on file documented as of this encounter Visit Diagnoses Not on filedocumented in this encounter Care Teams Professor Of Management Relationship Specialty Start Date End Date Naveed Mcintosh MD [address] [place] [address] PCP - General Family Medicine 10/07/19 documented as of this encounter
--- OUTSIDE RECORDS SUMMARY | 2024-11-27 21:02 | XMS_ITS | Encounter Summary ---
Author Organization [facility] Address [address] [facility] [address] [place] [address] Care Team Providers Care Roll Shop Supervisor Name Role Phone Naveed Mcintosh MD Primary Care Prov ider Reason for Visit * Reason Comments Coronary Artery Disease 6 month fu Encounter Details Date Type Department Care Team (Latest Contact Info) Description 09/02/2022 1:45 PM CDT Office Visit [facility] Cardiology [address] [phone] Salas Clemons MD [address] [address] Coronary artery disease involving [place] coronary artery of [place] heart without angina pectoris (Primary Dx); Ischemic [...] on file Legal Sex Male 9:37 AM NEON LIGHT INSTALLER Gender Identity Male 11/26/2019 3:10 PM NEON LIGHT INSTALLER Sexual Orientation Not on file documented as [...] This is a patient who presented to [facility] in August of 2019 with [...] total, Disp: 100 tablet, Rfl: 0 omega 4-kur-igp-fish oil 1,000 mg (120 mg-180 mg) capsule, [...] for this visit: Coronary artery disease involving [place] coronary artery of [place] heart without angina pectoris Ischemic cardiomyopathy PLAN/RECOMMENDATIONS No change in medical regimen Follow-up in 6 months or p.r.n. Salas Clemons MD documented in this encounter Plan of Treatment Not on file documented as of this encounter Visit Diagnoses Diagnosis Coronary artery disease involving [place] coronary artery of [place] heart without angina pectoris- Primary Ischemic cardiomyopathy Other specified forms of chronic ischemic heart disease documented in this encounter Discontinued Medications Medication Sig Discontinue Reason Start Date End Da te omega 1-qbp-xjx-fish oil 1,000 mg (120 mg-180 mg) capsule Take by mouth Therapy completed 09/02/2022 docusate sodium (COLACE) 100 mg capsule Take 100 mg by mouth 2 times daily Therapy completed 09/02/2022 documented as of this encounter Care Teams Roll Shop Supervisor Relationship Specialty Start Date End Date Naveed Mcintosh MD [address] [place] [address] PCP - General Family Medicine 10/07/19 documented as of this encounter
--- OUTSIDE RECORDS SUMMARY | 2024-11-27 21:02 | XMS_ITS | Encounter Summary ---
Author Organization [facility] Healthcare Address [address] [place] [address] Care Team Providers Care Medicine Teacher Name Role Phone Naveed Mcintosh MD Primary Care Prov ider Reason for Visit * Reason Comments Follow-up 6 mo Encounter Details Date Type Department Care Team (Late st Contact Info) Description 09/17/2023 1:00 PM CDT Office Visit [facility] Cardiology [address] [phone] Jazmyn Hernández NP 6810 [facility] 162 [facility] 102 [place], [place] [phone] Coronary artery disease involving [place] coronary artery of [place] heart without angina pectoris; Ischemic cardiomyopathy; Essential [...] on file Legal Sex Male 9:37 AM PIPE WELDER Gender Identity Male 11/26/2019 3:10 PM PIPE WELDER Sexual Orientation Not on file documented as [...] the original note were not included. [facility] Medical [facility] Cardiology [address] [place] [address] Date of Visit: 09/17/2023 Patient ID: Russell [...] This is a patient who presented to [facility] in August of 2019 with [...] ill last month and was hospitalized at [place]. 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 After the hospital stay he was sent to rehab for a while he is now back home and is still recovering from that. 09/17/2023 office visit with SUPERVISOR CAR INSTALLATIONS: he is here for routine follow up and denies any concerns. He denies chest pain. His offal trimmer (Dr. Gottlieb) who treats him for COPD [...] for this visit: Coronary artery disease involving [place] coronary artery of [place] heart without angina pectoris Ischemic cardiomyopathy Essential [...] concerns. 09/17/2023 MACKENZIE Gunderson- Nurse Practitioner with [facility] Cardiology This note is dictated and transcribed using [employer] Direct Software. Process Environmental Technician variancesmay occur. Despite proofreading, typographical errors may [...] Visit Diagnoses Diagnosis Coronary artery disease involving [place] coronary artery of [place] heart without angina pectoris Ischemic cardiomyopathy Other [...] 09/12/2023 added in this encounter Care Teams Medicine Teacher Relationship Specialty Start Date End Date Naveed Mcintosh MD [address] [place] [address] PCP - General Family Medicine 10/07/19 documented as of this encounter
--- OUTSIDE RECORDS SUMMARY | 2024-11-27 21:02 | XMS_ITS | Encounter Summary ---
Author Organization [facility] Address [address] [facility] [address] [place] [address] Care Team Providers Care Director Of Construction Name Role Phone Naveed Mcintosh MD Primary Care Prov ider Encounter Details Date Type Department Care Team (Late st Contact Info) Description 11/03/2019 Orders Only [facility] [address] [place] [phone] Salas Clemons MD 6810 [facility] 162 [facility] 102 [place] [address] Social History Tobacco Use Types Packs/Day Years Used Date Smoking Tobacco: Former Cigarettes 0.5 60 1 - 09/15/2019 Smokeless Tobacco: Never Alcohol Use Standard Drinks/Week Comments Not Currently 0 (1 standard drink = 0.6 oz pur e alcohol) Sex and Gender Information Value Date Recorded Sex Assigned at Not on file Legal Sex Male 9:37 AM PROP MAKER Gender Identity Male 11/26/2019 3:10 PM PROP MAKER Sexual Orientation Not on file documented [...] on filedocumented in this encounter Care Teams Director Of Construction Relationship Specialty Start Date End Date Naveed Mcintosh MD [address] [place] [address] PCP - General Family Medicine 10/07/19 documented as of this encounter
--- OUTSIDE RECORDS SUMMARY | 2024-11-27 21:02 | XMS_ITS | Encounter Summary ---
Author Organization [facility] Address [address] [facility] [address] [place] [address] Care Team Providers Care Transportation Driver Name Role Phone Naveed Mcintosh MD Primary Care Prov ider Encounter Details Date Type Department Care Team (Late st Contact Info) Description 10/11/2020 Telephone [facility] Cardiology [address] [place] [address] Salas Clemons MD 6810 [facility] 162 [facility] 102 [place] [address] Social History Tobacco Use Types Packs/Day Years Used Date Smoking Tobacco: Former Cigarettes 0.5 60 1 - 09/15/2019 Smokeless Tobacco: Never Alcohol Use Standard Drinks/Week Comments Not Currently 0 (1 standard drink = 0.6 oz pur e alcohol) Sex and Gender Information Value Date Recorded Sex Assigned at Not on file Legal Sex Male 9:37 AM BOAT LABORER Gender Identity Male 11/26/2019 3:10 PM BOAT LABORER Sexual Orientation Not on file documented as [...] Riya Chatterjee RN - 10/11/2020 2:07 PM BOAT LABORER Refill sent. LABORER * Telephone Encounter - Sophia Andersen - 10/11/2020 12:37 PM CST Patient/and or Pharmacy calling to request refills on the following medications: carvedilol 12.5 mgtabs Pharmacy:[facility] LABORER documented in this encounter Plan of Treatment [...] documented as of this encounter Care Teams Transportation Driver Relationship Specialty Start Date End Date Naveed Mcintosh MD [address] [place] [address] PCP - General Family Medicine 10/07/19 documented as of this encounter
--- OUTSIDE RECORDS SUMMARY | 2024-11-27 21:02 | XMS_ITS | Encounter Summary ---
Author Organization [facility] Address [address] [facility] [address] [place] [address] Care Team Providers Care Pt Skilled Name Role Phone Naveed Mcintosh MD Primary Care Prov ider Encounter Details Date Type Department Care Team (Late st Contact Info) Description 03/26/2020 Telephone [facility] Cardiology [address] [facility] 162 [facility] 102 [place] [address] Salas Clemons MD 6810 [facility] 162 [facility] 102 [place] [address] Social History Tobacco Use Types Packs/Day Years Used Date Smoking Tobacco: Former Cigarettes 0.5 60 1 - 09/15/2019 Smokeless Tobacco: Never Alcohol Use Standard Drinks/Week Comments Not Currently 0 (1 standard drink = 0.6 oz pur e alcohol) Sex and Gender Information Value Date Recorded Sex Assigned at Not on file Legal Sex Male 9:37 AM WOOD CRAFTER Gender Identity Male 11/26/2019 3:10 PM WOOD CRAFTER Sexual Orientation Not on file documented as of this encounter Ordered Prescriptions Prescription Sig Dispense Quantity Refills Last Filled Start Date End Date atorvastatin (LIPITOR) 80 mg tabletIndications: Coronary artery disease involving tribe coronary artery of tribe heart without angina pectoris Take 1 tablet [...] Visit Diagnoses Diagnosis Coronary artery disease involving tribe coronary artery of tribe heart without angina pectoris documented in this encounter Discontinued Medications Medication Sig Discontinue Reason Start Date End Da te atorvastatin (LIPITOR) 80 mg tabletIndications:[place] artery disease involving tribe coronary artery of tribe heart without angina pectoris Take 1 tablet (80 mg total) by mouth daily Reorder 10/07/2019 03/26/2020 documented as of this encounter Care Teams Pt Skilled Relationship Specialty Start Date End Date Naveed Mcintosh MD [address] [place] [address] PCP - General Family Medicine 10/07/19 documented as of this encounter
--- OUTSIDE RECORDS SUMMARY | 2024-11-27 21:02 | XMS_ITS | Encounter Summary ---
Author Organization [facility] Address [address] [facility] [address] [place] [address] Care Team Providers Care Retail Planner Name Role Phone Naveed Mcintosh MD Primary Care Prov ider Encounter Details Date Type Department Care Team (Late st Contact Info) Description 12/19/2019 Telephone [facility] Cardiology [address] [phone] Jazmyn Hernández, KALPESH [address] [address] Social History Tobacco Use Types Packs/Day Years Used Date Smoking Tobacco: Former Cigarettes 0.5 60 1 - 09/15/2019 Smokeless Tobacco: Never Alcohol Use Standard Drinks/Week Comments Not Currently 0 (1 standard drink = 0.6 oz pur e alcohol) Sex and Gender Information Value Date Recorded Sex Assigned at Not on file Legal Sex Male 9:37 AM PAPER REELER Gender Identity Male 11/26/2019 3:10 PM PAPER REELER Sexual Orientation Not on file documented as [...] Ayesha Chatterjee RN - 12/20/2019 1:53 PM PAPER REELER Response sent to patient via [employer]. Prescription for NTG sent to his [facility] pharmacy in [place]. Advised in message to contact us with any further questions. R REELER * Addendum Note - Ayesha Chatterjee RN - 12/20/2019 1:50 PM CSTAddended by: AYESHA CHATTERJEE on: 12/20/2019 01:50 PM Modules accepted: Orders R REELER * Telephone Encounter - Jazmyn Hernández NP - 12/20/2019 1:11 PM PAPER REELER It is okay to send a script [...] a prescription for nitroglycerin. - Jazmyn Hernández R REELER * Telephone Encounter - Ayesha Chatterjee RN - 12/19/2019 1:16 PM PAPER REELER KALPESH Eldridge please see message received from patient via [employer]. I can send in prescription for NTG [...] can prescribe it for you if indicated. R REELER documented in this encounter Plan of Treatment Not on file documented as of this encounter Visit Diagnoses Not on filedocumented in this encounter Care Teams Retail Planner Relationship Specialty Start Date End Date Naveed Mcintosh MD [address] [place] [address] PCP - General Family Medicine 10/07/19 documented as of this encounter
--- OUTSIDE RECORDS SUMMARY | 2024-11-27 21:02 | XMS_ITS | Encounter Summary ---
Author Organization [facility] Address [address] [facility] [address] [place] [address] Care Team Providers Care Sheet Sorter Name Role Phone Naveed Mcintosh MD Primary Care Prov ider Reason for Visit * Reason Comments Coronary Artery Disease 6 month fu Encounter Details Date Type Department Care Team (Latest Contact Info) Description 02/25/2022 1:45 PM CDT Office Visit [facility] Cardiology [address] [phone] Salas Clemons MD [address] [address] Coronary artery disease involving [place] coronary artery of [place] heart without angina pectoris (Primary Dx); Ischemic [...] on file Legal Sex Male 9:37 AM BUSINESS RISK ANALYST Gender Identity Male 11/26/2019 3:10 PM BUSINESS RISK ANALYST Sexual Orientation Not on file documented [...] This is a patient who presented to [facility] in August of 2019 with ischemic chest [...] day, Disp: , Rfl: 0 ??? omega 9-tsa-elz-fish oil 1,000 mg (120 mg-180 mg) capsule, [...] for this visit: Coronary artery disease involving [place] coronary artery of [place] heart without angina pectoris Ischemic cardiomyopathy PLAN/RECOMMENDATIONS No change in medical regimen Follow-up in 6 months or p.r.n. Salas Clemons MD documented in this encounter Plan of Treatment Not on file documented as of this encounter Visit Diagnoses Diagnosis Coronary artery disease involving [place] coronary artery of [place] heart without angina pectoris- Primary Ischemic cardiomyopathy Other specified forms of chronic ischemic heart disease documented in this encounter Discontinued Medications Medication Sig Discontinue Reason Start Date End Da te meloxicam (MOBIC) 15 mg tablet Take 15 mg by mouth nightly Therapy completed 02/25/2022 documented as of this encounter Care Teams Sheet Sorter Relationship Specialty Start Date End Date Naveed Mcintosh MD [address] [place] [address] PCP - General Family Medicine 10/07/19 documented as of this encounter
--- OUTSIDE RECORDS SUMMARY | 2024-11-27 21:02 | XMS_ITS | Encounter Summary ---
Author Organization [facility] Healthcare Address [address] [place] [address] Care Team Providers Care Childbirth And Infant Care Teacher Name Role Phone Naveed Mcintosh MD Primary Care Prov ider Reason for Visit * Reason Comments Follow-up 8 mo Encounter Details Date Type Department Care Team (Late st Contact Info) Description 05/13/2024 11:30 AM CDT Office Visit [facility] Cardiology [address] [phone] Jazmyn Hernández NP 6810 [facility] 162 [facility] 102 [place], [place] [id number] Ischemic cardiomyopathy; Coronary artery disease involving [place] coronary artery of [place] heart without angina pectoris; Essential hypertension, malignant [...] on file Legal Sex Male 9:37 AM SEEING EYE DOG TEACHER Gender Identity Male 11/26/2019 3:10 PM SEEING EYE DOG TEACHER Sexual Orientation Not on file documented as [...] 25 mg tabletIndications: Coronary artery disease involving [place] coronary artery of [place] heart without angina pectoris Take 1 tablet (25 mg total) by mouth daily 90 tablet 3 05/13/2024 05/13/2025 documented in this encounter Progress Notes * Jazmyn Hernández NP - 05/13/2024 11:30 AM CDT Images from the original note were not included. [facility] Cardiology [address] [place] [address] Date of Visit: 05/13/2024 Patient ID: Russell Morse [id number] Chief Complaint [...] This is a patient who presented to [facility] in August of 2019 with ischemic chest [...] ill last month and was hospitalized at [place]. 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 After the hospital stay he was sent to rehab for a while he is now back home and is still recovering from that. 09/17/2023 office visit with MEDIA LIAISON OFFICER: he is here for routine follow up and denies any concerns. He denies chest pain. His housekeeping aide (Dr. Gottlieb) who treats him for COPD just prescribed him home oxygen. 05/13/2024 office visit with MEDIA LIAISON OFFICER: He is here for routine follow-up accompanied [...] visit: Ischemic cardiomyopathy Coronary artery disease involving [place] coronary artery of [place] heart without angina pectoris - losartan (COZAAR) [...] 05/13/2024 Jazmyn Hernández ANP-BC Nurse Practitioner with [facility] Cardiology This note is dictated and transcribed using [employer] Direct Software. Handle Machine Operator variancesmay occur. Despite proofreading, typographical errors may occur. documented in this encounter Plan of Treatment Not on file documented as of this encounter Visit Diagnoses Diagnosis Ischemic cardiomyopathy Other specified forms of chronic ischemic heart disease Coronary artery disease involving [place] coronary artery of [place] heart without angina pectoris Essential hypertension, malignant [...] 04/28/2024 added in this encounter Care Teams Childbirth And Infant Care Teacher Relationship Specialty Start Date End Date Naveed Mcintosh MD [address] [place] [address] PCP - General Family Medicine 10/07/19 documented as of this encounter
--- OUTSIDE RECORDS SUMMARY | 2024-11-27 21:02 | XMS_ITS | Encounter Summary ---
Author Organization [facility] Address [address] [facility] [address] [place] [address] Care Team Providers Care Rodbuster Name Role Phone Naveed Mcintosh MD Primary Care Prov ider Encounter Details Date Type Department Care Team (Late st Contact Info) Description 09/19/2020 Telephone [facility] Cardiology [address] [facility] 162 [facility] 102 [place] [address] Salas Clemons MD 6810 [facility] 162 [facility] 102 [place] [address] Social History Tobacco Use Types Packs/Day Years Used Date Smoking Tobacco: Former Cigarettes 0.5 60 1 - 09/15/2019 Smokeless Tobacco: Never Alcohol Use Standard Drinks/Week Comments Not Currently 0 (1 standard drink = 0.6 oz pur e alcohol) Sex and Gender Information Value Date Recorded Sex Assigned at Not on file Legal Sex Male 9:37 AM HEAD OF BUSINESS DEVELOPMENT Gender Identity Male 11/26/2019 3:10 PM HEAD OF BUSINESS DEVELOPMENT Sexual Orientation Not on file documented as [...] on filedocumented in this encounter Care Teams Rodbuster Relationship Specialty Start Date End Date Naveed Mcintosh MD [address] [place] [address] PCP - General Family Medicine 10/07/19 documented as of this encounter
--- OUTSIDE RECORDS SUMMARY | 2024-11-27 21:02 | XMS_ITS | Encounter Summary ---
Author Organization [facility] Address [address] [facility] [address] [place] [address] Care Team Providers Care Internet Media Planner Name Role Phone Naveed Mcintosh MD Primary Care Prov ider Reason for Visit * Reason Comments Follow-up 6 mo f/u Coronary Artery Disease Pneumonia 2 weeks ago and was seen at [facility] * Consultation (Routine) - Closed Specialty Diagnoses / Procedures Referred By Contac t Referred To Contact Cardiology Diagnoses Atherosclerosis of [place] coronary artery with other form of angina pectoris, unspecified whether [place] or transplanted heart (HCC) Naveed Mcintosh MD [address] [place] [address] Phone: tel: fax: [facility] Cardiology [address] [facility] [address] [place] [address] Phone: tel: fax: Referral ID Status Reason Start Date Expiration Date V isits Requested Visits Authorized [id number] Closed Specialty Services Required 08/14/2021 02/10/2022 6 6 Encounter Details Date Type Department Care Team (Latest Contact Info) Description 08/20/2021 2:45 PM CDT Office Visit [facility] Cardiology [address] [place] [address] Salas Clemons MD [address] [place] [address] Coronary artery disease involving [place] coronary artery of [place] heart without angina pectoris (Primary Dx); Atherosclerosis of [place] coronary artery with other form of angina pectoris, unspecified whether [place] or transplanted heart (HCC); Ischemic cardiomyopathy Social History Tobacco Use Types Packs/Day Years Used Date Smoking Tobacco: Former Cigarettes 0.5 60 1 - 09/15/2019 Smokeless Tobacco: Never Alcohol Use Standard Drinks/Week Comments Not Currently 0 (1 standard drink = 0.6 oz pur e alcohol) Sex and Gender Information Value Date Recorded Sex Assigned at Not on file Legal Sex Male 9:37 AM PUBLIC ADDRESS SYSTEMS 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 He was broughtto the cardiac catheterization lab after a small troponin rise and found to have severe single-vessel coronary artery disease with subtotal occlusion of the mid LAD. I treated him with 2 Excellence4uiro drug-eluting stents with a good anatomical result. [...] Disp: 100 tablet, Rfl: 0 ??? omega 7-jhs-uew-fish oil 1,000 mg (120 mg-180 mg) capsule, [...] for this visit: Coronary artery disease involving [place] coronary artery of [place] heart without angina pectoris Atherosclerosis of [place] coronary artery with other form of angina pectoris, unspecified whether [place] or transplanted heart (HCC) - Ambulatory referral to Cardiology Ischemic cardiomyopathy PLAN/RECOMMENDATIONS No change in medical regimen Follow-up in 6 months or p.r.n. Salas Clemons MD documented in this encounter Plan of Treatment Not on file documented as of this encounter Visit Diagnoses Diagnosis Coronary artery disease involving [place] coronary artery of [place] heart without angina pectoris- Primary Atherosclerosis of [place] coronary artery with other form of angina pectoris, unspecified whether [place] or transplanted heart (HCC) Ischemic cardiomyopathy Other [...] 08/20/2021 documented in this encounter Care Teams Internet Media Planner Relationship Specialty Start Date End Date Naveed Mcintosh MD [address] [place] [address] PCP - General Family Medicine 10/07/19 documented as of this encounter
--- OUTSIDE RECORDS SUMMARY | 2024-11-27 21:02 | XMS_ITS | Encounter Summary ---
Author Organization [facility] Care Team Providers Care Build Master Name Role Phone Naveed Mcintosh MD Primary [...] on file Legal Sex Male 9:37 AM WIRE WALKER Gender Identity Male 11/26/2019 3:10 PM WIRE WALKER Sexual Orientation Not on file documented as of this encounter Plan of Treatment Not on file documented as of this encounter Visit Diagnoses Not on filedocumented in this encounter Care Teams Build Master Relationship Specialty Start Date End Date Naveed Mcintosh MD [address] [place] [address] PCP - General Family Medicine 10/07/19 documented as of this encounter
--- OUTSIDE RECORDS SUMMARY | 2024-11-27 21:02 | XMS_ITS | Encounter Summary ---
Author Organization [facility] Facility Care Team Providers Care Building Trades Instructor Name Role Phone Unavailable Primary Care Provider Unavailabl e Encounter Details Date Type Department Care Team (Late st Contact Info) Description 10/09/2015 - 10/09/2015 11:59 PM ORDER CHECKER Hospital Encounter [facility], Daniel Mcgee III, MD [address] [place] [address] Intervertebral disc disorder with radiculopathy of lumbosacral region Social History Tobacco Use Types Packs/Day Years Used Date Smoking Tobacco: Every Day Sex and Gender Information Value Date Recorded Sex Assigned at Not on file Legal Sex Male 9:37 AM ORDER CHECKER Gender Identity Male 11/26/2019 3:10 PM ORDER CHECKER Sexual Orientation Not on file documented as of this encounter Plan of Treatment Not on file documented as of this encounter Procedures Procedure Name Priority Date/Time Associated Diagnosis Comments CT LUMBAR SPINE W CONTRAST Routine 10/09/2015 10:02 AM ORDER CHECKER MYELOGRAM VIA LUMBAR PUNCTURE Routine 10/09/2015 9:44 AM ORDER CHECKER documented in this encounter Results * CT Lumbar Spine W Contrast (10/09/2015 10:02 AM ORDER CHECKER) Anatomical Region Laterality Modality Spine N/A Computed Tomogra phy 10/09/2015 10:0 2 AM ORDER CHECKER Narrative 10/09/2015 11:52 AM ORDER CHECKER DANIEL GARCIA M.D. NANDA FRANKS M.D. FINAL REPORT The radiology attending physician has personally reviewed this study, and has reviewed and/or edited this written report and agrees with it. ACC# ??Date Time ??Exam [id number] Oct 09, 2015 09:44:00 [id number] Lumbar Myelo w S&I [id number] Oct 09, 2015 10:02:[address] Lumbar Spine with con EXAMINATION: ?? [...] GARCIA M.D. on Oct 09 2015 11:52A [id number] Procedure Note Provider, MD Alin - 03/28/2017 DANIEL GARCIA M.D. NANDA FRANKS M.D. FINAL REPORT The radiology attending physician has personally reviewed this study, and has reviewed and/or edited this written report and agrees with it. ACC# Date Time Exam [id number] Oct 09, 2015 09:44:00 [id number] Lumbar Myelo w S&I [id number] Oct 09, 2015 10:02:[address] Lumbar Spine with con EXAMINATION: Lumbar [...] GARCIA M.D. on Oct 09 2015 11:52A [id number] us Historical Provider MD CRABTREE CT PROCEDURES Final R esult * Myelogram Lumbar (10/09/2015 9:44 AM ORDER CHECKER) Anatomical Region Laterality Modality Spine N/A X-Ray Angiograph y 10/09/2015 9:44 AM ORDER CHECKER Narrative 10/09/2015 11:52 AM ORDER CHECKER Nadege ORELLANA M.D. FINAL REPORT The radiology attending physician has personally reviewed this study, and has reviewed and/or edited this written report and agrees with it. ACC# ??Date Time ??Exam [id number] Oct 09, 2015 09:44:00 [id number] Lumbar Myelo w S&I [id number] Oct 09, 2015 10:02:[address] Lumbar Spine with con EXAMINATION: ?? [...] GARCIA M.D. on Oct 09 2015 11:52A [id number] Procedure Note Provider, MD Alin - 03/28/2017 DANIEL GARCIA M.D. NANDA FRANKS M.D. FINAL REPORT The radiology attending physician has personally reviewed this study, and has reviewed and/or edited this written report and agrees with it. ACC# Date Time Exam [id number] Oct 09, 2015 09:44:00 [id number] Lumbar Myelo w S&I [id number] Oct 09, 2015 10:02:[address] Lumbar Spine with con EXAMINATION: Lumbar [...] GARCIA M.D. on Oct 09 2015 11:52A [id number] Historical Provider MD CRABTREE IR PROCEDURES Final R esult documented in this encounter Visit Diagnoses Diagnosis Intervertebral disc disorder with radiculopathy of lumbosacral region documented in this encounter
--- OUTSIDE RECORDS SUMMARY | 2024-11-27 21:02 | XMS_ITS | Encounter Summary ---
Author Organization [facility] Address [address] [facility] [address] [place] [address] Care Team Providers Care Manufacturing Electrician Name Role Phone Naveed Mcintosh MD Primary Care Prov ider Reason for Visit * Reason Comments Coronary Artery Disease Cardiomyopathy 6 mo f/u * Consultation (Routine) - Closed Specialty Diagnoses / Procedures Referred By Contac t Referred To Contact Cardiology Diagnoses Coronary atherosclerosis of creek coronary artery Ischemic cardiomyopathy Naveed Mcintosh MD [address] [place] [address] Phone: tel: fax: [facility] Cardiology [address] [place] [address] Phone: tel: fax: Referral ID Status Reason Start Date Expiration Date V isits Requested Visits Authorized [id number] Closed Specialty Services Required 08/14/2020 02/10/2021 6 6 Encounter Details Date Type Department Care Team (Latest Contact Info) Description 08/16/2020 2:30 PM CDT Office Visit [facility] Cardiology [address] [place] [phone] Salas Clemons MD [address] [place] [address] Coronary artery disease involving creek coronary artery of creek heart without angina pectoris (Primary Dx); Ischemic cardiomyopathy; Coronary atherosclerosis of creek coronary artery Social History Tobacco Use Types Packs/Day Years Used Date Smoking Tobacco: Former Cigarettes 0.5 60 1 - 09/15/2019 Smokeless Tobacco: Never Alcohol Use Standard Drinks/Week Comments Not Currently 0 (1 standard drink = 0.6 oz pur e alcohol) Sex and Gender Information Value Date Recorded Sex Assigned at Not on file Legal Sex Male 9:37 AM PAYROLL ACCOUNTING SPECIALIST Gender Identity Male 11/26/2019 3:10 PM PAYROLL ACCOUNTING SPECIALIST Sexual Orientation Not on file documented as [...] This is a patient who presented to [facility] in August of 2019 with [...] Disp: 100 tablet, Rfl: 0 ??? omega 2-zoh-nvt-fish oil 1,000 mg (120 mg-180 mg) capsule, [...] for this visit: Coronary artery disease involving creek coronary artery of creek heart without angina pectoris Ischemic cardiomyopathy PLAN/RECOMMENDATIONS Discontinue Brilinta when he runs out of his current supply Follow-up in 6 months or p.r.n. Salas Clemons MD documented in this encounter Plan of Treatment Not on file documented as of this encounter Visit Diagnoses Diagnosis Coronary artery disease involving creek coronary artery of creek heart without angina pectoris- Primary Ischemic cardiomyopathy Other specified forms of chronic ischemic heart disease Coronary atherosclerosis of creek coronary artery documented in this encounter Discontinued [...] 90 mg tabletIndications:[place] artery disease involving creek coronary artery of creek heart without angina pectoris Take 1 tablet (90 mg total) by mouth 2 (two) times a day 10/07/2019 08/16/2020 documented as of this encounter Orders Outpatient Referral Count Last Ordered Date Fir st Ordered Date AMB REFERRAL TO CARDIOLOGY 1 08/17/2020 documented in this encounter Care Teams Manufacturing Electrician Relationship Specialty Start Date End Date Naveed Mcintosh MD [address] [place] [address] PCP - General Family Medicine 10/07/19 documented as of this encounter
--- OUTSIDE RECORDS SUMMARY | 2024-11-27 21:02 | XMS_ITS | Encounter Summary ---
Author Organization [facility] Address [address] [address] Care Team Providers Care Inspection Machine Tender Name Role Phone Naveed Mcintosh MD Primary Care Prov ider Reason for Referral * Consultation (Routine) - Closed Specialty Diagnoses / Procedures Referred By Eliana lyon Referred To Contact Cardiology Diagnoses Essential hypertension, malignant Salas Clemons MD [address] [place] [address] Phone: tel: fax: Salas Clemons MD [address] [place] [address] Phone: tel: fax: Referral ID Status Reason Start Date Expiration Date V isits Requested Visits Authorized [id number] Closed Specialty Services Required 03/02/2023 04/03/2024 1 1 Question Answer Please select the performing region: [facility] [[id number]] Please select the performing department: [facility] [[id number]] To provider: SALAS CLEMONS [[id number]] # of visits: 1 Encounter Details Date Type Department Care Team (Late st Contact Info) Description 03/05/2023 Orders Only [facility] Cardiology [address] [place] [address] Salas Clemons MD [address] [place] [address] Essential hypertension, malignant (Primary Dx) Social History Tobacco Use Types Packs/Day Years Used Date Smoking Tobacco: Former Cigarettes 1.5 65 0 03/12/1957 - 09/19/2018 Smokeless Tobacco: Never Alcohol Use Standard Drinks/Week Comments Not Currently 0 (1 standard drink = 0.6 oz pur e alcohol) Sex and Gender Information Value Date Recorded Sex Assigned at Not on file Legal Sex Male 9:37 AM SKIMMER REVERBERATORY Gender Identity Male 11/26/2019 3:10 PM SKIMMER REVERBERATORY Sexual Orientation Not on file documented as of this encounter Plan of Treatment Scheduled Referrals Name Type Priority Associated Diagnoses Order Schedule Ambulatory referral to Cardiology Outpatient Referral Routine Essential hypertension, malignant Expected: 03/19/2023 (Approximate), Expires: 03/05/2024 documented as of this encounter Visit Diagnoses Diagnosis Essential hypertension, malignant- Primary documented in this encounter Care Teams Inspection Machine Tender Relationship Specialty Start Date End Date Naveed Mcintosh MD [address] [place] [address] PCP - General Family Medicine 10/07/19 documented as of this encounter
--- OUTSIDE RECORDS SUMMARY | 2024-11-27 21:02 | XMS_ITS | Encounter Summary ---
Author Organization [facility] Facility Care Team Providers Care Cellar Worker Name Role Phone Naveed Mcintosh MD [...] on file Legal Sex Male 9:37 AM SHOP FITTER Gender Identity Male 11/26/2019 3:10 PM SHOP FITTER Sexual Orientation Not on file documented as of this encounter Plan of Treatment Not on file documented as of this encounter Visit Diagnoses Not on filedocumented in this encounter Care Teams Cellar Worker Relationship Specialty Start Date End Date Naveed Mcintosh MD [address] [place] [address] PCP - General Family Medicine 10/07/19 documented as of this encounter
--- OUTSIDE RECORDS SUMMARY | 2024-11-27 21:02 | XMS_ITS | Encounter Summary ---
Author Organization [facility] Address [address] [facility] [address] [place] [address] Care Team Providers Care Environmental Professional Name Role Phone Naveed Mcintosh MD Primary Care Prov ider Reason for Visit * Reason Comments Coronary Artery Disease 6 mo f/u * Consultation (Routine) - Closed Specialty Diagnoses / Procedures Referred By Contac t Referred To Contact Cardiology Diagnoses Coronary atherosclerosis of [place] coronary artery Ischemic cardiomyopathy Naveed Mcintosh MD [address] [place] [address] Phone: tel: fax: [facility] Cardiology [address] [place] [phone] Phone: tel: fax: Referral ID Status Reason Start Date Expiration Date V isits Requested Visits Authorized [id number] Closed Specialty Services Required 02/05/2021 08/04/2021 6 6 Encounter Details Date Type Department Care Team (Latest Contact Info) Description 02/12/2021 2:45 PM CDT Office Visit [facility] Cardiology [address] [place] [address] Salas Clemons MD [address] [place] [address] Coronary artery disease involving [place] coronary artery of [place] heart without angina pectoris (Primary Dx); Coronary atherosclerosis of [place] coronary artery; Ischemic cardiomyopathy Social History Tobacco Use Types Packs/Day Years Used Date Smoking Tobacco: Former Cigarettes 0.5 60 1 - 09/15/2019 Smokeless Tobacco: Never Alcohol Use Standard Drinks/Week Comments Not Currently 0 (1 standard drink = 0.6 oz pur e alcohol) Sex and Gender Information Value Date Recorded Sex Assigned at Not on file Legal Sex Male 9:37 AM BIOLOGICS SPECIALIST Gender Identity Male 11/26/2019 3:10 PM BIOLOGICS SPECIALIST Sexual Orientation Not on file documented [...] Disp: 100 tablet, Rfl: 0 ??? 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 Salas Clemons MD documented in this encounter Plan of Treatment Not on file documented as of this encounter Visit Diagnoses Diagnosis Coronary artery disease involving [place] coronary artery of [place] heart without angina pectoris- Primary Coronary atherosclerosis of [place] coronary artery Ischemic cardiomyopathy Other specified forms of chronic ischemic heart disease documented in this encounter Orders Outpatient Referral Count Last Ordered Date Fir st Ordered Date AMB REFERRAL TO CARDIOLOGY 1 02/12/2021 documented in this encounter Care Teams Environmental Professional Relationship Specialty Start Date End Date Naveed Mcintosh MD [address] [place] [address] PCP - General Family Medicine 10/07/19 documented as of this encounter
--- OUTSIDE RECORDS SUMMARY | 2024-11-27 21:02 | XMS_ITS | Encounter Summary ---
Author Organization [facility] Address [address] [facility] [address] [place] [address] Care Team Providers Care Waiter/Waitress Third Class Name Role Phone Naveed Mcintosh MD Primary Care Prov ider Reason for Visit * Cardiology (Routine) - Closed Specialty Diagnoses / Procedures Referred By Eliana lyon Referred To Contact Diagnoses Ischemic cardiomyopathy Procedures Transthoracic Echo Complete W Doppler/CF Jazmyn Fry NP [address] [facility] [address] [address] Phone: tel: fax: [facility] Referral ID Status Reason Start Date Expiration Date Visits Re quested Visits Authorized [id number] Closed 10/28/2019 05/08/2021 1 1 Encounter Details Date Type Department Care Team (Latest Contact Info) Description 11/28/2019 11:15 AM VISITING NURSE Ancillary Procedure [facility] Cardiology [address] [facility] [address] [phone] Ischemic cardiomyopathy Social History Tobacco Use Types Packs/Day Years Used Date Smoking Tobacco: Former Cigarettes 0.5 60 1 - 09/15/2019 Smokeless Tobacco: Never Alcohol Use Standard Drinks/Week Comments Not Currently 0 (1 standard drink = 0.6 oz pur e alcohol) Sex and Gender Information Value Date Recorded Sex Assigned at Not on file Legal Sex Male 9:37 AM VISITING NURSE Gender Identity Male 11/26/2019 3:10 PM VISITING NURSE Sexual Orientation Not on file documented as of this encounter Plan of Treatment Not on file documented as of this encounter Procedures Procedure Name Priority Date/Time Associated Diagnosis Comments TRANSTHORACIC ECHO (TTE) COMPLETE W DOPPLER/CF WO CONTRAST Routine 11/28/2019 12:42 PM VISITING NURSE Ischemic cardiomyopathy documented in this encounter Results * TRANSTHORACIC ECHO (TTE) COMPLETE W DOPPLER/CF WO CONTRAST (11/28/2019 12:42 PM VISITING NURSE) Anatomical Region Laterality Modality Ultrasound 11/28/2019 10:4 5 AM VISITING NURSE Narrative 11/28/2019 1:28 PM VISITING NURSE [facility] Cardiology [address] [facility] [address] [id number] [address] [facility] [address], [place] [address] P:[phone] P:[phone] Echocardiographic Report Patient Name: ELMER LÓPEZ : [...] Site: Exam was interpreted at [facility]. Left Ventricle: Normal left ventricular size. [...] Signed By: Doroteo Cheng MD 2019-11-28 13:28:48 VISITING NURSE Procedure Note Doroteo Cheng MD - 11/28/2019 [facility] Cardiology [address] [facility] [address], [place] [address] [address] [facility] [address], [place] [address] P:[phone] P:[phone] Echocardiographic Report Patient Name: ELMER LÓPEZ : [...] Site: Exam was interpreted at [facility]. Left Ventricle: Normal left ventricular size. [...] Signed By: Doroteo Cheng MD 2019-11-28 13:28:48 VISITING NURSE Jazmyn Fry NP CV ECHO PROCEDURES Final Result documented in this encounter Visit Diagnoses Diagnosis Ischemic cardiomyopathy Other specified forms of chronic ischemic heart disease documented in this encounter Care Teams Waiter/Waitress Third Class Relationship Specialty Start Date End Date Naveed Mcintosh MD [address] [place] [address] PCP - General Family Medicine 10/07/19 documented as of this encounter
--- OUTSIDE RECORDS SUMMARY | 2024-11-27 21:02 | XMS_ITS | Encounter Summary ---
Author Organization [facility] Address [address] [facility] [address] [place] [address] Care Team Providers Care Powerhouse Attendant Name Role Phone Naveed Mcintosh MD Primary Care Prov ider Encounter Details Date Type Department Care Team (Late st Contact Info) Description 10/11/2021 Orders Only [facility] Cardiology [address] [facility] [address] [place] [address] Doroteo Cheng MD [address] [address] Social History Tobacco Use Types Packs/Day Years Used Date Smoking Tobacco: Former Cigarettes 0.5 60 1 - 09/15/2019 Smokeless Tobacco: Never Alcohol Use Standard Drinks/Week Comments Not Currently 0 (1 standard drink = 0.6 oz pur e alcohol) Sex and Gender Information Value Date Recorded Sex Assigned at Not on file Legal Sex Male 9:37 AM TEMPERATURE REGULATOR Gender Identity Male 11/26/2019 3:10 PM TEMPERATURE REGULATOR Sexual Orientation Not on file documented as [...] on filedocumented in this encounter Care Teams Powerhouse Attendant Relationship Specialty Start Date End Date Naveed Mcintosh MD [address] [place] [address] PCP - General Family Medicine 10/07/19 documented as of this encounter
--- OUTSIDE RECORDS SUMMARY | 2024-11-27 21:02 | XMS_ITS | Encounter Summary ---
Author Organization [facility] Address [address] [facility] [address] [place] [address] Care Team Providers Care Production Packager Name Role Phone Naveed Mcintosh MD Primary Care Prov ider Encounter Details Date Type Department Care Team (Late st Contact Info) Description 10/13/2019 Telephone [facility] [address] [place] [phone] Salas Clemons MD [address] [place] [address] Social History Tobacco Use Types Packs/Day Years Used Date Smoking Tobacco: Former Cigarettes 0.5 60 1 - 09/15/2019 Smokeless Tobacco: Never Alcohol Use Standard Drinks/Week Comments Not Currently 0 (1 standard drink = 0.6 oz pur e alcohol) Sex and Gender Information Value Date Recorded Sex Assigned at Not on file Legal Sex Male 9:37 AM CANCER REGISTRY COORDINATOR Gender Identity Male 11/26/2019 3:10 PM CANCER REGISTRY COORDINATOR Sexual Orientation Not on file documented as of this encounter Miscellaneous Notes * Telephone Encounter - Eugenia Forbes, RN - 10/13/2019 4:42 PM CANCER REGISTRY COORDINATOR Spoke with patient. States that he figured out his question and nothing further is needed. ER REGISTRY COORDINATOR * Telephone Encounter - Sophia Andersen - 10/13/2019 3:52 PM CST Pt called back to discuss his Brilinta 90 mg tabs. [phone] ER REGISTRY COORDINATOR * Telephone Encounter - Sophia Andersen - 10/13/2019 1:29 PM CST Pt called to discuss the Brilinta 90 mg tabs. [phone] ER REGISTRY COORDINATOR documented in this encounter Plan of Treatment Not on file documented as of this encounter Visit Diagnoses Not on filedocumented in this encounter Care Teams Production Packager Relationship Specialty Start Date End Date Naveed Mcintosh MD [address] [place] [address] PCP - General Family Medicine 10/07/19 documented as of this encounter
--- OUTSIDE RECORDS SUMMARY | 2024-11-27 21:02 | XMS_ITS | Encounter Summary ---
Author Organization [facility] Address [address] [facility] [address] [place] [address] Care Team Providers Care Lye Bath Operator Name Role Phone Naveed Mcintosh MD Primary Care Prov ider Reason for Visit * Reason Comments Hospital Follow Up * Cardiology (Routine) - Closed Specialty Diagnoses / Procedures Referred By Contac t Referred To Contact Cardiology Diagnoses Chronic obstructive pulmonary disease, unspecified Non-ST elevation (NSTEMI) myocardial infarction Naveed Mcintosh MD [address] [place] [address] Phone: tel: fax: [facility] Cardiology [address] [place] [phone] Phone: tel: fax: Referral ID Status Reason Start Date Expiration Date Visits Re quested Visits Authorized [id number] Closed 09/29/2019 03/27/2020 4 4 Encounter Details Date Type Department Care Team (Late st Contact Info) Description 10/07/2019 8:30 AM LOGISTICS TECHNICIAN Office Visit [facility] [address] [facility] [address] [place] [phone] Jazmyn Hernández, KALPESH [address] [place] [address] Coronary artery disease involving confederated [place] coronary artery of conf[place] heart without angina pectoris (Primary Dx); Presence [...] on file Legal Sex Male 9:37 AM LOGISTICS TECHNICIAN Gender Identity Male 11/26/2019 3:10 PM LOGISTICS TECHNICIAN Sexual Orientation Not on file documented as of this encounter Last Filed Vital Signs Vital Sign Reading Time Taken Comments Blood Pressure 152/84 10/07/2019 8:45 AM LOGISTICS TECHNICIAN Pulse 61 10/07/2019 8:45 AM LOGISTICS TECHNICIAN Temperature - - Respiratory Rate - - Oxygen Saturation 94% 10/07/2019 8:45 AM LOGISTICS TECHNICIAN Inhaled Oxygen Concentration - - Weight 91.3 kg (201 lb 4.8 oz) 10/07/2019 8:45 A M LOGISTICS TECHNICIAN Height 180.3 cm (5' 11 ) 10/07/2019 8:45 AM LOGISTICS TECHNICIAN Body Mass Index 28.08 10/07/2019 8:45 AM LOGISTICS TECHNICIAN documented in this encounter Ordered Prescriptions Prescription Sig Dispense Quantity Refills Last Filled Start Date End Date atorvastatin (LIPITOR) 80 mg tabletIndications:Co ronary artery disease involving [place] coronary artery of [place] heart without angina pectoris Take 1 tablet (80 mg total) by mouth daily 30 tablet 11 10/07/2019 0 BRILINTA 90 mg tabletIndications:Co ronary artery disease involving [place] coronary artery of [place] heart without angina pectoris Take 1 tablet [...] bowel obstruction in 2005. He presented to [facility] on 09/16/2019 for complaint of a retrosternal pressure-like chest pain. Dr. Clemons saw him in consultation in the emergency room. ECG was unremarkable, but 2nd troponin codey to 1.1. He was taken to the chemical laboratory assistant the following morning. Coronary angiography showed severe [...] discharged on 09/18/2019. 10/07/2019 hospital follow-up with RN CARDIOVASCULAR: He comes to the office today accompanied [...] outlined in the HPI above) August 2019 [facility] records including the consultation note from Dr. [...] day, Disp: , Rfl: 0 ??? omega 9-hru-pmn-fish oil 1,000 mg (120 mg-180 mg) capsule, [...] for this visit: Coronary artery disease involving [place] coronary artery of [place] heart without angina pectoris (Primary) - BRILINTA [...] schedule his echo at that time. Total ixgs-ui-lrtd visit time was 45 minutes. More than [...] This note is dictated and transcribed using [employer] Direct Software. Train Operator variancesmay occur. Despite proofreading, typographical errors may occur. STICS TECHNICIAN documented in this encounter Miscellaneous Notes * Addendum Note - Karen Bolivar MA - 10/07/2019 8:30 AM CSTAddended by: KAREN BOLIVAR on: 10/12/2019 03:01 PM Modules accepted: Orders STICS TECHNICIAN documented in this encounter Plan of Treatment Not on file documented as of this encounter Procedures Procedure Name Priority Date/Time Associated Diagnosis Comments POCT LIPID PANEL Routine 10/12/2019 3:02 PM LOGISTICS TECHNICIAN Coronary artery disease involving [place] coronary artery of [place] heart without angina pectoris documented in this encounter Results * POCT lipid panel (10/12/2019 3:02 PM LOGISTICS TECHNICIAN) Cholesterol, POC 140 mg/dL HDL, POC 66 mg/dL Triglycerides, POC 94 mg/dL LDL Cholesterol POC 55 mg/dL Chol/HDL Ratio, POC 2.1 Non-HDL Cholesterol, POC 74 mg/dL Cholesterol Total, POC 140 mg/dL Blood specimen (specimen) 10/12/2019 3:02 PM LOGISTICS TECHNICIAN us Jazmyn Hernández NP POINT OF CARE TEST ORDERA BLES Final Result documented in this encounter Visit Diagnoses Diagnosis Coronary artery disease involving [place] coronary artery of [place] heart without angina pectoris- Primary Presence of [...] MOUTH ONCE DAILY 3 09/19/2019 3 omega 9-umv-vtg-fish oil 1,000 mg (120 mg-180 mg) capsule [...] 9 added in this encounter Care Teams Lye Bath Operator Relationship Specialty Start Date End Date Naveed Mcintosh MD [address] [place] [address] PCP - General Family Medicine 10/07/19 documented as of this encounter
--- OUTSIDE RECORDS SUMMARY | 2024-11-27 21:02 | XMS_ITS | Encounter Summary ---
Author Organization [facility] Address [address] [address] Care Team Providers Care Critical Care Cns Name Role Phone Naveed Mcintosh MD Primary Care Prov ider Reason for Referral * Cardiology (Routine) - Closed Specialty Diagnoses / Procedures Referred By Eliana lyon Referred To Contact Diagnoses Ischemic cardiomyopathy Procedures Transthoracic Echo Complete W Doppler/CF Jazmyn Fry NP [address] [address] Phone: tel: fax: [facility] Referral ID Status Reason Start Date Expiration Date Visits Re quested Visits Authorized [id number] Closed 10/28/2019 05/08/2021 1 1 COMPLIANCE MANAGER Reason for Visit * Reason Comments Follow-up 3-4 wk f/u * Cardiology (Routine) - Closed Specialty Diagnoses / Procedures Referred By Contzeinab t Referred To Contact Cardiology Diagnoses Chronic obstructive pulmonary disease, unspecified Non-ST elevation (NSTEMI) myocardial infarction Naveed Mcintosh MD [address] [place] [address] Phone: tel: fax: [facility] Cardiology [address] [place] [address] Phone: tel: fax: Referral ID Status Reason Start Date Expiration Date Visits Re quested Visits Authorized [id number] Closed 09/29/2019 03/27/2020 4 4 Encounter Details Date Type Department Care Team (Late st Contact Info) Description 10/28/2019 11:00 AM IT COMPLIANCE MANAGER Office Visit [facility] [address] [place] [address] Jazmyn Fry NP [address] [place] [id number] Coronary artery disease involving menominee coronary artery of menominee heart without angina pectoris; Ischemic cardiomyopathy; Essential [...] on file Legal Sex Male 9:37 AM IT COMPLIANCE MANAGER Gender Identity Male 11/26/2019 3:10 PM IT COMPLIANCE MANAGER Sexual Orientation Not on file documented as of this encounter Last Filed Vital Signs Vital Sign Reading Time Taken Comments Blood Pressure 132/60 10/28/2019 11:22 AM IT COMPLIANCE MANAGER Pulse 60 10/28/2019 11:22 AM IT COMPLIANCE MANAGER Temperature - - Respiratory Rate - - Oxygen Saturation 95% 10/28/2019 11:22 AM IT COMPLIANCE MANAGER Inhaled Oxygen Concentration - - Weight 89.9 kg (198 lb 1.6 oz) 10/28/2019 11:22 AM IT COMPLIANCE MANAGER Height 180.3 cm (5' 11 ) 10/28/2019 11:22 AM IT COMPLIANCE MANAGER Body Mass Index 27.63 10/28/2019 11:22 AM IT COMPLIANCE MANAGER documented in this encounter Ordered Prescriptions Prescription [...] bowel obstruction in 2005. He presented to [facility] on 09/16/2019 for complaint of a retrosternal pressure-like chest pain. Dr. Clemons saw him in consultation in the emergency room. ECG was unremarkable, but 2nd troponin codey to 1.1. He was taken to the label coder the following morning. Coronary angiography showed severe [...] discharged on 09/18/2019. 10/07/2019 hospital follow-up with VALVE REPAIRER: He comes to the office today accompanied [...] LDL 55, HDL 66 10/28/2019 OV with VALVE REPAIRER: He returns for 4 week follow-up. He [...] day, Disp: , Rfl: 0 ??? omega 8-qsj-hve-fish oil 1,000 mg (120 mg-180 mg) capsule, [...] for this visit: Coronary artery disease involving [place]ominee coronary artery of menominee heart without angina pectoris Ischemic cardiomyopathy - [...] This note is dictated and transcribed using [employer] Direct Software. Dye House Wheel Operator variancesmay occur. Despite proofreading, typographical errors may occur. COMPLIANCE MANAGER COMPLIANCE MANAGER documented in this encounter Plan of Treatment Not on file documented as of this encounter Procedures Procedure Name Priority Date/Time Associated Diagnosis Comments BASIC METABOLIC PANEL Routine 10/28/2019 12:24 PM IT COMPLIANCE MANAGER Flu-like symptoms CBC WITH AUTO DIFFERENTIAL Routine 10/28/2019 12:23 PM IT COMPLIANCE MANAGER Flu-like symptoms documented in this encounter Results * TRANSTHORACIC ECHO (TTE) COMPLETE W DOPPLER/CF WO CONTRAST (11/28/2019 12:42 PM IT COMPLIANCE MANAGER) Anatomical Region Laterality Modality Ultrasound 11/28/2019 10:4 5 AM IT COMPLIANCE MANAGER Narrative 11/28/2019 1:28 PM IT COMPLIANCE MANAGER [facility] Cardiology [address], [place] [address] [address], [place] [address] P:[phone] P:[phone] Echocardiographic Report Patient Name: ELMER LÓPEZ : 1945 Study Date: 11/28/2019 10:45:36 AM Gender: M Tech: Location: [place] Ref.Provider: LUCY Height(Cm): 180 BSA: 2.1 Weight(Kg): [...] Findings: Interpretation Site: Exam was interpreted at [facility]. Left Ventricle: Normal left ventricular size. [...] Signed By: Doroteo Cheng MD 2019-11-28 13:28:48 IT COMPLIANCE MANAGER Procedure Note Doroteo Cheng MD - 11/28/2019 [facility] Cardiology [address] [facility] [address], [place] [address] [facility] [address], [place] [address] P:[phone] P:[phone] Echocardiographic Report Patient Name: ELMER LÓPEZ : 1945 Study Date: 11/28/2019 10:45:36 AM Gender: M Tech: Location: [place] Ref.Provider: LUCY Height(Cm): 180 BSA: 2.1 Weight(Kg): [...] Findings: Interpretation Site: Exam was interpreted at [facility]. Left Ventricle: Normal left ventricular size. [...] Signed By: Doroteo Cheng MD 2019-11-28 13:28:48 IT COMPLIANCE MANAGER Jazmyn Fry NP CV ECHO PROCEDURES Final Result * Basic metabolic panel (10/28/2019 12:24 PM IT COMPLIANCE MANAGER) Pathologist [facility] Glucose 91 65 - 99 mg/dL [facility] [...] 01 Blood specimen (specimen) 10/28/2019 12:24 PM IT COMPLIANCE MANAGER 10/28/2019 Narrative [facility] - 10/29/2019 1:06 AM IT COMPLIANCE MANAGER Performed at: ??01 - [facility], [place], [place] ??[id number] Sales Property Manager: Silvano Mayes PhD, Phone: ??[phone] us Jazmyn Fry NP LAB BLOOD ORDERABLES Wendy l Result [facility] - 01 * (ABNORMAL) CBC with auto differential (10/28/2019 12:23 PM IT COMPLIANCE MANAGER) WBC 6.7 3.4 - 10.8 x10E3/uL [facility] [...] 01 Blood specimen (specimen) 10/28/2019 12:23 PM IT COMPLIANCE MANAGER 10/28/2019 Narrative [facility] - 10/29/2019 2:06 AM IT COMPLIANCE MANAGER Performed at: ??01 - [facility] [address] ??[id number] Sales Property Manager: Silvano Mayes PhD, Phone: ??[phone] Jazmyn Fry NP LAB BLOOD ORDERABLES Wendy l Result [facility] - 01 documented in this encounter Visit Diagnoses Diagnosis Coronary artery disease involving menominee coronary artery of menominee heart without angina pectoris Ischemic cardiomyopathy Other [...] 02/25/2022 added in this encounter Care Teams Critical Care Cns Relationship Specialty Start Date End Date Naveed Mcintosh MD [address] [place] [address] PCP - General Family Medicine 10/07/19 documented as of this encounter
--- OUTSIDE RECORDS SUMMARY | 2024-11-27 21:02 | XMS_ITS | Encounter Summary ---
Author Organization [facility] Address [address] [facility] [address] [place] [address] Care Team Providers Care Recruitment Manager Name Role Phone Naveed Mcintosh MD Primary Care Prov ider Encounter Details Date Type Department Care Team (Late st Contact Info) Description 06/30/2023 Telephone [facility] Cardiology [address] [facility] 162 [facility] [address] [place] [phone] Salas Clemons MD [address] [facility] 162 [facility] 102 [place] [address] Social History Tobacco Use Types Packs/Day Years Used Date Smoking Tobacco: Former Cigarettes 1.5 65 0 03/12/1956 - 09/19/2018 Smokeless Tobacco: Never Alcohol Use Standard Drinks/Week Comments Not Currently 0 (1 standard drink = 0.6 oz pur e alcohol) Sex and Gender Information Value Date Recorded Sex Assigned at Not on file Legal Sex Male 9:37 AM PLATFORM POWER TECHNICIAN Gender Identity Male 11/26/2019 3:10 PM PLATFORM POWER TECHNICIAN Sexual Orientation Not on file documented [...] [facility]. Contact:[phone] documented in this encounter Plan of Treatment Not on file documented as of this encounter Visit Diagnoses Not on filedocumented in this encounter Care Teams Recruitment Manager Relationship Specialty Start Date End Date Naveed Mcintosh MD [address] [place] [address] PCP - General Family Medicine 10/07/19 documented as of this encounter
--- OUTSIDE RECORDS SUMMARY | 2024-11-27 21:02 | XMS_ITS | Encounter Summary ---
Author Organization [facility] Address [address] [facility] [address] [place] [address] Care Team Providers Care Hat Band Attacher Name Role Phone No, Physician Primary Care Provider [phone] Naveed Mcintosh MD Primary Care Prov ider Naveed Mcintosh MD Primary Care Prov ider Encounter Details Date Type Department Care Team (Late st Contact Info) Description 09/16/2019 Orders Only [facility] Cardiology [address] [place] [phone] Salas Clemons MD [address] [facility] 162 [facility] [address] [place], [place] [phone] Social History Tobacco Use Types Packs/Day Years Used Date Smoking Tobacco: Every Day Sex and Gender Information Value Date Recorded Sex Assigned at Not on file Legal Sex Male 9:37 AM NICKEL PLANT OPERATOR Gender Identity Male 11/26/2019 3:10 PM NICKEL PLANT OPERATOR Sexual Orientation Not on file documented [...] on filedocumented in this encounter Care Teams Hat Band Attacher Relationship Specialty Start Date End Date No, Physician PCP - General 09/19/19 10/06/19 Naveed Mcintosh MD [address] [place] [address] PCP - General Family Medicine 09/16/19 09/18/19 Naveed Mcintosh MD [address] [place] [address] PCP - General Family Medicine 10/07/19 documented as of this encounter
--- OUTSIDE RECORDS SUMMARY | 2024-11-27 21:02 | XMS_ITS | Clinical Summary ---
Author Organization [facility] [address] Address [address] [place] [address] Care Team Providers Care Compressor Operator Name Role Phone Naveed Mcintosh MD [...] 80 mg tabletIndicatio ns:Coronary artery disease involving [place] coronary artery of [place] heart without angina pectoris TAKE 1 TABLET [...] 25 mg tabletIndicatio ns:Coronary artery disease involving [place] coronary artery of [place] heart without angina pectoris Take 1 tablet (25 mg total) by mouth daily 90 tablet 3 4 05/13/20 25 Active carvediloL (COREG) 12.5 mg tablet TAKE 1 TABLET BY MOUTH TWICE DAILY 180 tablet 2 4 Active Active Problems Problem Noted Date Diagnosed Date Coronary artery disease invo lving [place] coronary artery of [place] heart without angina pectoris 10/28/2019 Ischemic cardiomyopathy [...] on file Legal 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
--- OUTSIDE RECORDS SUMMARY | 2024-11-27 21:02 | XMS_ITS | Encounter Summary ---
Author Organization [facility] Address [address] [place] [address] Care Team Providers Care Property Custodian Name Role Phone Naveed Mcintosh MD Primary Care Prov ider Encounter Details Date Type Department Care Team (Late st Contact Info) Description 12/11/2023 Telephone [facility] Cardiology [address] [place] [address] Jeanie Mayorga Social History Tobacco [...] on file Legal Sex Male 9:37 AM NON EMERGENCY SERVICES AMBULANCE DRIVER Gender Identity Male 11/26/2019 3:10 PM NON EMERGENCY SERVICES AMBULANCE DRIVER Sexual Orientation Not on file documented as of this encounter Miscellaneous Notes * Telephone Encounter - Eugenia Herrera RN - 12/15/2023 9:07 AM NON EMERGENCY SERVICES AMBULANCE DRIVER F response faxed to pulmonary sleep med. EMERGENCY SERVICES AMBULANCE DRIVER * Telephone Encounter - Eugenia Herrera RN - 12/11/2023 1:01 PM NON EMERGENCY SERVICES AMBULANCE DRIVER Will forward to [facility]. Please advise. EMERGENCY SERVICES AMBULANCE DRIVER * Telephone Encounter - Jeanie Mayorga - 12/11/2023 12:01 PM CST Bree from Pulmonary sleep medicine at called stating they are wanting to refer patient to pulmonary rehab and wanted to know if patient needs a stress test before or if it can be waived. Fax letter to [phone] EMERGENCY SERVICES AMBULANCE DRIVER documented in this encounter Plan of Treatment Not on file documented as of this encounter Visit Diagnoses Not on filedocumented in this encounter Care Teams Property Custodian Relationship Specialty Start Date End Date Naveed Mcintosh MD [address] [place] [address] PCP - General Family Medicine 10/07/19 documented as of this encounter
--- OUTSIDE RECORDS SUMMARY | 2024-11-27 21:02 | XMS_ITS | Referral Summary ---
Author Organization [facility] [address] Address [address] [place] [address] Care Team Providers Care Box Blank Machine Feeder Name Role Phone Naveed Mcintosh MD Primary [...] 80 mg tabletIndicatio ns:Coronary artery disease involving [place]arrow coronary artery of barrow heart without angina pectoris TAKE 1 TABLET [...] 25 mg tabletIndicatio ns:Coronary artery disease involving barrow coronary artery of barrow heart without angina pectoris Take 1 tablet (25 mg total) by mouth daily 90 tablet 3 4 05/13/20 25 Active carvediloL (COREG) 12.5 mg tablet TAKE 1 TABLET BY MOUTH TWICE DAILY 180 tablet 2 Active Active Problems Problem Noted Date Diagnosed Date Coronary artery disease invo lving barrow coronary artery of [place]arrow heart without angina pectoris 10/28/2019 Ischemic cardiomyopathy [...] on file 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
--- OUTSIDE RECORDS SUMMARY | 2024-11-27 21:02 | XMS_ITS | Continuity of Care Document ---
Author Organization [facility] Address [facility] [address] [place] [address] Phone Care Team Providers Care Work Car Operator Name Role Phone Dante PT, DPT, Te [...] Diagnoses Date Provider Providers Copied on Encounter [facility], [address], [place], [place], [id number], [place] tel:[phone] Joe Low back painOth symptoms and signs involving the musculoskelet al systemAbnorma l postureOther abnormalities of gait and mobility 9 Dante Tiwari. . Referring Provider: Naveed Mcintosh , [address] [place] [address], [place], [address]. tel:[phone] [facility], [id number], tel:[phone] Troy Low back painOth symptoms and signs involving the musculoskelet al systemAbnorma l postureOther abnormalities of gait and mobility Krystlehovidya Starka. . Referring Provider: Naveed Mcintosh , [address] [place] [address], [address]. tel:[phone] [facility], [id number], [place] tel:[phone] Troy Low back painOth symptoms and signs involving the musculoskelet al systemAbnorma l postureOther abnormalities of gait and mobility Krystlehovidya Mcclellan. . Referring Provider: Naveed Mcintosh , [address] [place] [address], [address]. tel:[phone] [facility], [id number], tel:[phone] Troy Low back painOth symptoms and signs involving the musculoskelet al systemAbnorma l postureOther abnormalities of gait and mobility Krystlehoffer Vy. . Referring Provider: Naveed Mcintosh , [address] [place] [address], [address]. tel:[phone] [facility], [id number], tel:[phone] Troy Low back painOth symptoms and signs involving the musculoskelet al systemAbnorma l postureOther abnormalities of gait and mobility Dante Tiwari. . Referring Provider: Naveed Mcintosh , [address] [place] [address], [address]. tel:[phone] [facility], [id number], tel:[phone] Troy Low back painOth symptoms and signs involving the musculoskelet al systemAbnorma l postureOther abnormalities of gait and mobility 0-201 9 Dante Tiwari. . Referring Provider: Naveed Mcintosh , [address] [place] [address], [address]. tel:[phone] [facility] [address], [id number], tel:[phone] Troy Low back painOth symptoms and signs involving the musculoskelet al systemAbnorma l postureOther abnormalities of gait and mobility 7201 9 Dante Tiwari. . Referring Provider: Naveed Mcintosh , [address] [place] [address], [address]. tel:[phone] [facility] [address], [id number], tel:[phone] Troy Low back painOth symptoms and signs involving the musculoskelet al systemAbnorma l postureOther abnormalities of gait and mobility 5[address] 9 Rick Mcclellan. . Referring Provider: Naveed Mcintosh , [address] [place] [address], [address]. tel:[phone] Family History Family Member Type Diagnosis Age At Onset No Information Payers Payer name Insurance type Covered green party ID Authoriza tion(s) AARP Medicare Complete [place] [id number] Social History Type Description Quantity Date Captured [...]
--- OUTSIDE RECORDS SUMMARY | 2024-11-27 21:04 | XMS_ITS | Encounter Summary ---
Author Organization [facility] Address [address] [place] [address] Care Team Providers Care Mud Logger Name Role Phone Naveed Mcintosh MD Primary Care Provider [phone] Encounter Details Date Type Department Care Team (Late st Contact Info) Description 07/14/2019 Orders Only [facility] Neurosurgery - [address] [address] [facility] [address] [place] [address] Provider, Abstract NO ADDRESS ON [...] on filedocumented in this encounter Care Teams Mud Logger Relationship Specialty Start Date End Date Naveed Mcintosh MD [address] [facility] 100 [place] [address] PCP - General Family Practice 05/18/19 documented as of this encounter
--- OUTSIDE RECORDS SUMMARY | 2024-11-27 21:04 | XMS_ITS | Clinical Summary ---
Author Organization [employer] [id number] [facility] Address [address] [place] [address] Care Team Providers Care Assistant Research Scientist Name Role Phone Naveed Mcintosh MD Primary Care Provider +1- [phone] Allergies No known active allergies Medications Medication [...] Take 1 Tablet by mouth daily. Active Aprym-1-RXE-EPA-Fish Oil (FISH OIL) 1,000 mg (120 mg-180 [...] 2019 INFLUENZA VACCINE (#1) 2024 Care Teams Assistant Research Scientist Relationship Specialty Start Date End Date Naveed Mcintosh MD [address] [address] PCP - General Family Practice 05/18/19
--- OUTSIDE RECORDS SUMMARY | 2024-11-27 21:05 | XMS_ITS | Encounter Summary ---
Author Organization [facility] Address [address] [place] [address] Care Team Providers Care Electronic Intelligence Officer Name Role Phone Naveed Mcintosh MD Primary Care Provider +1- [phone] Reason for Referral * Outpatient Services (Routine) - Closed Specialty Diagnoses / Procedures Referred By Eliana lyon Referred To Contact Diagnoses Spondylolisthesis at L5-S1 level Procedures EMG [place] [address] [place] [address] Referral ID Status Reason Start Date Expiration Date V isits Requested Visits Authorized [id number] Closed [facility] 06/07/2019 07/07/2020 1 1 Encounter Details Date Type Department Care Team (Latest Contact Info) Description 06/07/2019 Orders Only [facility] Neurosurgery - [address] [place] [address] [address] [facility] [address] [place] [address] [place] [address] [facility] [address] [place] [address] Spondylolisthesis at L5-S1 level (Primary [...] Primary documented in this encounter Care Teams Electronic Intelligence Officer Relationship Specialty Start Date End Date Naveed Mcintosh MD [address] [address] PCP - General Family Practice 05/18/19 documented as of this encounter
--- OUTSIDE RECORDS SUMMARY | 2024-11-27 21:05 | XMS_ITS | Encounter Summary ---
Author Organization [facility] Address [address] [place] [address] Care Team Providers Care Commercial Energy Auditor Name Role Phone Unavailable Primary Care Provider Unavailabl e Encounter Details Date Type Department Care Team (Latest Contact Info) Description 05/12/2019 4:00 PM CDT - 05/12/2019 11:59 PM CDT Hospital Encounter [facility] [address] [place] [address] [facility], External Provider [address] [place] [address] Discharge Disposition: Home or Self Care Social [...] to be scanned to PACS. External Provider [facility] MR ORDERABLES documented in this encounter Visit Diagnoses Diagnosis Pain Generalized pain documented in this encounter
--- OUTSIDE RECORDS SUMMARY | 2024-11-27 21:05 | XMS_ITS | Encounter Summary ---
Author Organization [facility] Address [address] [place] [address] Care Team Providers Care Trim Setter Name Role Phone Naveed Mcintosh MD Primary Care Provider +1- [phone] Encounter Details Date Type Department Care Team (Late st Contact Info) Description 05/23/2019 Abstract [facility] Neurosurgery - [address] [facility] [address] [facility] [address] [place] [address] Provider, Abstract NO ADDRESS ON [...] on filedocumented in this encounter Care Teams Trim Setter Relationship Specialty Start Date End Date Naveed Mcintosh MD [address] [place] [address] [address] [place] [address] PCP - General Family Practice 05/18/19 documented as of this encounter
--- OUTSIDE RECORDS SUMMARY | 2024-11-27 21:05 | XMS_ITS | Encounter Summary ---
Author Organization [facility] Address [address] [place] [address] Care Team Providers Care Brickmason Name Role Phone Naveed Mcinotsh MD Primary Care Provider +1- [phone] Encounter Details Date Type Department Care Team (Late st Contact Info) Description 05/31/2019 Abstract [facility] Neurosurgery - [address] [facility] [address] [facility] [address] [place] [address] Provider, Abstract NO ADDRESS ON [...] on filedocumented in this encounter Care Teams Brickmason Relationship Specialty Start Date End Date Naveed Mcintosh MD [address] [place] [address] [address] [place] [address] PCP - General Family Practice 05/18/19 documented as of this encounter
--- OUTSIDE RECORDS SUMMARY | 2024-11-27 21:05 | XMS_ITS | Encounter Summary ---
Author Organization [facility] Address [address] [place] [address] Care Team Providers Care Campus Executive Director Name Role Phone Naveed Mcintosh MD Primary Care Provider +1- [phone] Reason for Visit * Reason Comments Consult * Eval and Treat (Routine) - Closed Specialty Diagnoses / Procedures Referred By Contac t Referred To Contact Neurosurgery Diagnoses Sciatica, left side left msg on pcp [id number] Procedures PT EVAL AND TREAT OFFICE VISIT NEW PATIENT Naveed Mcintosh MD [address] [facility] [address] [place] [address] [place] [address] [facility] [address] [place] [address] Referral ID Status Reason Start Date Expiration Date Visits Re quested Visits Authorized [id number] Closed 05/16/2019 06/15/2020 3 3 Encounter Details Date Type Department Care Team (Latest Contact Info) Description 05/31/2019 10:15 AM CDT Office Visit [facility] [place] [id number] [address] [place] [address] [facility] [address] [place] [address] Spondylolisthesis at L5-S1 level (Primary [...] the pleasure of seeing Lito today at [facility] here in [place], [place]. Russell Nieto ray 74 y.o. male [...] file Gets together: Not on file Attends amish service: Not on file Active member of [...] mg by mouth daily before breakfast. ??? ffikcytspaohc-xapwwzdz-monfvk (CENTRUM SILVER) Tablet Take 1 Tablet by mouth daily. ??? Juuzt-1-AKJ-EPA-Fish Oil (FISH OIL) 1,000 mg (120 mg-180 [...] myelopathy documented in this encounter Care Teams Campus Executive Director Relationship Specialty Start Date End Date Naveed Mcintosh MD [address] [address] PCP - General Family Practice 05/18/19 documented as of this encounter
--- OUTSIDE RECORDS SUMMARY | 2024-11-27 21:05 | XMS_ITS | Encounter Summary ---
Author Organization [facility] Address [address] [place] [address] Care Team Providers Care Chronic Care Nurse Name Role Phone Naveed Mcintosh MD Primary Care Provider +1- [phone] Encounter Details Date Type Department Care Team (Late st Contact Info) Description 05/31/2019 Abstract [facility] Neurosurgery - [address] [facility] [address] [facility] [address] [place] [address] Provider, Abstract NO ADDRESS ON [...] on filedocumented in this encounter Care Teams Chronic Care Nurse Relationship Specialty Start Date End Date Naveed Mcintosh MD [address] [place] [address] [address] [place] [address] PCP - General Family Practice 05/18/19 documented as of this encounter
--- OUTSIDE RECORDS SUMMARY | 2024-11-27 21:05 | XMS_ITS | Encounter Summary ---
Author Organization [facility] Address [address] [place] [address] Care Team Providers Care Double Needle Stitcher Name Role Phone Naveed Mcintosh MD Primary Care Provider +1- [phone] Encounter Details Date Type Department Care Team (Late st Contact Info) Description 05/20/2019 Orders Only [facility] Neurosurgery - [address] [facility] [address] [place] [address] Provider, Abstract NO ADDRESS ON [...] on filedocumented in this encounter Care Teams Double Needle Stitcher Relationship Specialty Start Date End Date Naveed Mcintosh MD 1 [facility] [address] [place] [address] PCP - General Family Practice 05/18/19 documented as of this encounter
--- OUTSIDE RECORDS SUMMARY | 2024-11-27 21:05 | XMS_ITS | Encounter Summary ---
Author Organization [facility] Address [address] [place] [address] Care Team Providers Care Office Auditor Name Role Phone Naveed Mcintosh MD Primary Care Provider +1- [phone] Encounter Details Date Type Department Care Team (Late st Contact Info) Description 05/31/2019 Abstract [facility] Neurosurgery - [address] [facility] [address] [facility] [address] [place] [address] Provider, Abstract NO ADDRESS ON [...] on filedocumented in this encounter Care Teams Office Auditor Relationship Specialty Start Date End Date Naveed Mcintosh MD [address] [place] [address] [address] [place] [address] PCP - General Family Practice 05/18/19 documented as of this encounter
[2024-11-27] MEDS: METOPROLOL SUCCINATE EXT REL 50 MG TABCR PO (21:50)
[2024-11-27] MEDS: traZODone HCL 50 MG TABLET 100 MG PO (21:50)
[2024-11-28] VITALS: PULSE 59
[2024-11-28 04:00] VITALS: PULSE 52
[2024-11-28 05:15] VITALS: BP 113/43; PULSE 58; RESP 16; TEMP 36.5; O2SAT 99
[2024-11-28] MEDS: LINACLOTIDE 145 MCG CAPSULE 290 MCG PO (06:02)
[2024-11-28 08:00] VITALS: PULSE 59; O2SAT 96
[2024-11-28] MEDS: ATORVASTATIN 40 MG TABLET 80 MG PO (08:55)
[2024-11-28] MEDS: MORPHINE SULFATE (*CRX) 30 MG TABCR PO (08:55)
[2024-11-28] MEDS: ASPIRIN 81 MG ENTERIC TABLET PO (08:55)
[2024-11-28] MEDS: buPROPion HCL SR (12 HR) 150 MG TAB PO (08:55)
[2024-11-28] MEDS: TAMSULOSIN HCL 0.4 MG CAPSULE PO (08:55)
[2024-11-28] MEDS: MULTIVITAMINS THERAPEUTIC TAB (*BKC) 1 TABLET PO (08:55)
[2024-11-28] MEDS: PANTOPRAZOLE 40 MG TABLET PO (08:55)
[2024-11-28] MEDS: guaiFENesin 12 HR 600 MG TABCR 1200 MG PO (08:55)
[2024-11-28] MEDS: SERTRALINE HCL 50 MG TABLET PO (08:55)
[2024-11-28] MEDS: LOSARTAN POTASSIUM 50 MG TABLET PO (08:55)
[2024-11-28] MEDS: FUROSEMIDE 20 MG TABLET 60 MG PO (08:55)
[2024-11-28] MEDS: SACCHAROMYCES BOULARDII 250 MG CAPSULE PO ×2 (08:55→12:07)
[2024-11-28] MEDS: FENOFIBRATE 160 MG TABLET PO (08:55)
[2024-11-28] MEDS: FINASTERIDE 5 MG TABLET PO (08:55)
[2024-11-28 09:22] VITALS: PULSE 56; RESP 20; O2SAT 96
[2024-11-28] MEDS: FLUTICASONE/UMECLIDIN/VILANTER 100-62.5-25 MCG ELLIPTA 1 PUFF INHALATION (09:22)
[2024-11-28 10:05] LABS: Basophils Percent Auto 0.3 % (0.2-1.2); Eosinophils Absolute Auto 0.2 K/mm3 (0-0.3); Eosinophils Percent Auto 3.2 % (0-4.4); Hematocrit 28.5 % (42.0-52.0); Hemoglobin 9.1 g/dL (14.0-18.0); Immature Granulocyte Absolute 0.06 K/mm3 (0.00-0.031); Immature Granulocyte Percent A 0.9 % (0-0.5); Lymphocytes Absolute Auto 1.16 K/mm3 (0.9-3.2); Lymphocytes Percent Auto 16.6 % (18.3-44.2); Mean Corpuscular HGB Conc 31.9 g/dl (32-36); Mean Corpuscular Hemoglobin 31.2 pg (26-34); Mean Corpuscular Volume 97.6 fl (80-100); Mean Platelet Volume 10.5 fl (7.4-10.4); Monocytes Absolute Auto 0.8 K/mm3 (0.1-0.6); Monocytes Percent Auto 10.7 % (2.6-8.5); Neutrophils Absolute Auto 4.8 K/mm3 (1.3-6.7); Neutrophils Percent Auto 68.3 % (45.5-73.1); Platelet Count Result 267 k/mm3 (150-375); Red Blood Count 2.92 M/mm3 (4.6-6.20); Red Cell Distribution Width 13.9 % (11.5-14.5)
[2024-11-28 10:16] LABS: Alanine Aminotransferase 18 U/L (6-50); Albumin Level 3.3 g/dL (3.5-5.1); Alkaline Phosphatase 63 U/L (38-126); Anion Gap -1 mmol/L (4-12); Aspartate Amino Transferase 24 U/L (17-59); Bilirubin,Total 0.5 mg/dL (0.2-1.3); Blood Urea Nitrogen 26 mg/dL (9-20); Calcium 9.1 mg/dL (8.4-10.2); Carbon Dioxide 37 mmol/L (22-30); Chloride 100 mmol/L (98-107); Estimated CRCL calculation 40 ml/min; Estimated Glomerular Filt Rate 49; Glucose 105 mg/dL (65-110); Magnesium 2.2 mg/dL (1.6-2.3); Potassium 4.5 mmol/L (3.4-5.0); Sodium 136 mmol/L (137-145)
[2024-11-28 12:00] VITALS: PULSE 60
[2024-11-28] MEDS: LORazepam (*CRX) 0.5 MG TABLET PO (12:09)
--- NOTE | 2024-11-28 12:33 | PM.IMPN ---
Subjective Date/time seen: 11/28/24 12:33 Review of Systems Review of Systems: All systems reviewed & are unremarkable except as noted in HPI and below Objective Data Vital Signs Vital Signs: Vital Signs - 24 hr 11/27/24 13:54 11/27/24 13:54 11/27/24 14:00 Temperature 97.6 F Pulse Rate 66 62 Respiratory Rate 20 18 Blood Pressure 101/60 Pulse Oximetry 97 98 Oxygen Delivery Nasal Cannula Oxygen Flow Rate 4 Fraction of Inspired Oxygen 36 11/27/24 16:02 11/27/24 20:00 11/27/24 20:00 Temperature Pulse Rate 60 59 L Respiratory Rate Blood Pressure Pulse Oximetry 95 Oxygen Delivery Nasal Cannula Oxygen Flow Rate 3 Fraction of Inspired Oxygen 36 11/27/24 21:15 11/27/24 21:50 11/28/24 00:00 Temperature 97.8 F Pulse Rate 66 68 59 L Respiratory Rate 18 Blood Pressure 122/47 L Pulse Oximetry 95 Oxygen Delivery Oxygen Flow Rate Fraction of Inspired Oxygen 11/28/24 04:00 11/28/24 05:15 11/28/24 08:00 Temperature 97.7 F Pulse Rate 52 L 58 L Respiratory Rate 16 Blood Pressure 113/43 L Pulse Oximetry 99 96 Oxygen Delivery Nasal Cannula Oxygen Flow Rate 4 Fraction of Inspired Oxygen 11/28/24 09:22 11/28/24 09:22 11/28/24 10:35 Temperature Pulse Rate 56 L Respiratory Rate 20 Blood Pressure Pulse Oximetry 96 Oxygen Delivery Nasal Cannula Nasal Cannula Oxygen Flow Rate 4 3 Fraction of Inspired Oxygen 36 11/28/24 11:41 Temperature Pulse Rate Respiratory Rate Blood Pressure Pulse Oximetry Oxygen Delivery High Flow Therapy with Na Oxygen Flow Rate 4 Fraction of Inspired Oxygen Intake/Output Intake/Output: Intake & Output 11/25/24 11/26/24 11/27/24 11/28/24 23:59 23:59 23:59 23:59 Intake Total 2039 1080 1150 790 Output Total 1999 1585 1100 950 Balance 40 -505 50 -160 Meds/Results Medications: Active Medications Generic Name Dose Route Start Last Admin Trade Name Freq PRN Reason Stop Dose Admin Acetaminophen 650 mg 11/20/24 23:51 11/27/24 18:00 Acetaminophen 325 Mg Tablet PO 650 mg Q6H PRN Administration Mild Pain (1-3) or Fever Albuterol 2 puff 11/27/24 09:12 Albuterol Sulfate (*Sp) Aerosol 1 Puff INHALATION Q4H PRN Shortness Of Breath Or Wheezing Albuterol/Ipratropium 3 ml 11/27/24 09:12 Ipratropium 0.5 Mg/Albuterol Sulfate 2.5 Mg Ampul.Neb 3 Ml INHALATION Q8H PRN shortness of breath or wheezing Aspirin 81 mg 11/21/24 12:23 11/28/24 08:55 Aspirin 81 Mg Enteric Tablet PO 81 mg DAILY GIOVANNY Administration Atorvastatin Calcium 80 mg 11/21/24 12:23 11/28/24 08:55 Atorvastatin 40 Mg Tablet PO 80 mg DAILY GIOVANNY Administration Bupropion HCl 150 mg 11/21/24 21:00 11/28/24 08:55 Bupropion Hcl Sr (12 Hr) 150 Mg Tab PO 150 mg Q12HR GIOVANNY Administration Fenofibrate 160 mg 11/21/24 12:23 11/28/24 08:55 Fenofibrate 160 Mg Tablet PO 160 mg DAILY GIOVANNY Administration Finasteride 5 mg 11/21/24 12:23 11/28/24 08:55 Finasteride 5 Mg Tablet PO 5 mg DAILY GIOVANNY Administration Fluticasone/Umeclidinium/Vilanterol 1 puff 11/27/24 09:25 11/28/24 09:22 Fluticasone/Umeclidin/Vilanter 100-62.5-25 Mcg Ellipta INHALATION 1 puff DAILYRT GIOVANNY Administration Furosemide 60 mg 11/21/24 12:25 11/28/24 08:55 Furosemide 20 Mg Tablet PO 60 mg DAILY GIOVANNY Administration Guaifenesin 1,200 mg 11/21/24 09:00 11/28/24 08:55 Guaifenesin 12 Hr 600 Mg Tabcr PO 1,200 mg Q12HR GIOVANNY Administration Ceftriaxone Sodium 1 gm in 50 mls @ 100 mls/hr 11/23/24 09:00 11/28/24 09:25 Rocephin 1 Gm/Ns 50 Ml IVPB 11/29/24 23:59 Infused Q24H GIOVANNY Infusion Linaclotide 290 mcg 11/28/24 06:30 11/28/24 06:02 Linaclotide 145 Mcg Capsule PO 290 mcg DAILY@0630 GIOVANNY Administration Loratadine 10 mg 11/27/24 09:19 Loratadine 10 Mg Tablet PO QAM PRN allergies Lorazepam 0.5 mg 11/21/24 16:39 11/28/24 12:09 Lorazepam (*Crx) 0.5 Mg Tablet PO 0.5 mg BID PRN Administration anxiety Losartan Potassium 50 mg 11/21/24 12:25 11/28/24 08:55 Losartan Potassium 50 Mg Tablet PO 50 mg DAILY GIOVANNY Administration Metoprolol Succinate 50 mg 11/24/24 21:00 11/27/24 21:50 Metoprolol Succinate Ext Rel 50 Mg Tabcr PO 50 mg HS GIOVANNY Administration Miscellaneous Information 0 each 11/27/24 00:01 Albuterol Hfa And Duoneb Both Prn For Sob/Wheezing - Please Specify When To Use Each XX 12/27/24 00:00 CLARIFY GIOVANNY Morphine Sulfate 30 mg 11/21/24 12:25 11/28/24 08:55 Morphine Sulfate (*Crx) 30 Mg Tabcr PO 30 mg QAM GIOVANNY Administration Multivitamins Therapeutic 1 tablet 11/28/24 09:00 11/28/24 08:55 Multivitamins Therapeutic Tab (*Bkc) PO 1 tablet DAILY GIOVANNY Administration Nitroglycerin 0.4 mg 11/27/24 09:20 Nitroglycerin Sl 0.4 Mg Tablet SUBLINGUAL Q5MIN PRN Chest Pain Pantoprazole Sodium 40 mg 11/28/24 09:00 11/28/24 08:55 Pantoprazole 40 Mg Tablet PO 40 mg QAM GIOVANNY Administration Polyethylene Glycol 17 gm 11/23/24 10:15 11/28/24 09:01 Polyethylene Glycol 3350 17 Gm Powd.Pack PO Not Given QAM GIOVANNY Polyethylene Glycol 17 gm 11/27/24 09:07 Polyethylene Glycol 3350 17 Gm Powd.Pack PO QAM PRN Constipation Saccharomyces Boulardii 250 mg 11/27/24 13:00 11/28/24 12:07 Saccharomyces Boulardii 250 Mg Capsule PO 250 mg TID GIOVANNY Administration Senna/Docusate Sodium 1 tab 11/22/24 21:00 11/27/24 21:51 Senna/Docusate Sodium Tablet PO Not Given HS GIOVANNY Sertraline HCl 50 mg 11/21/24 12:25 11/28/24 08:55 Sertraline Hcl 50 Mg Tablet PO 50 mg DAILY GIOVANNY Administration Tamsulosin HCl 0.4 mg 11/21/24 12:25 11/28/24 08:55 Tamsulosin Hcl 0.4 Mg Capsule PO 0.4 mg DAILY GIOVANNY Administration Trazodone HCl 100 mg 11/21/24 21:00 11/27/24 21:50 Trazodone Hcl 50 Mg Tablet PO 100 mg HS GIOVANNY Administration Radiology Results: ITS Impressions Chest CTA 11/20/24 19:21 IMPRESSION: No pulmonary embolus. No aneurysmal dilatation or dissection within the thoracic aorta. Small bilateral pleural effusions with adjacent compressive atelectasis. Venous Doppler Study 11/21/24 08:38 IMPRESSION: 1. No deep venous thrombosis. 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 2: Small right pleural effusion. Labs Labs: Laboratory Results - last 24 hr 11/28/24 09:45 WBC 7.0 RBC 2.92 L Hgb 9.1 L Hct 28.5 L MCV 97.6 MCH 31.2 MCHC 31.9 L RDW 13.9 Plt Count 267 MPV 10.5 H Immature Gran % (Auto) 0.9 H Neut % (Auto) 68.3 Lymph % (Auto) 16.6 L Jennings % (Auto) 10.7 H Eos % (Auto) 3.2 Baso % (Auto) 0.3 Lymph # (Auto) 1.16 Jennings # (Auto) 0.8 H Eos # (Auto) 0.2 Baso # (Auto) 0.0 Abs Immat Gran (auto) 0.06 H Absolute Neuts (auto) 4.8 Absolute Nucleated RBC 0.000 Nucleated RBC % 0.0 Sodium 136 L Potassium 4.5 Chloride 100 Carbon Dioxide 37 H Anion Gap -1 L BUN 26 H Creatinine 1.40 H Estim Creat Clear Calc 40 Estimated GFR 49 L Glucose 105 Calcium 9.1 Magnesium 2.2 Total Bilirubin 0.5 AST 24 ALT 18 Alkaline Phosphatase 63 Total Protein 6.0 L Albumin 3.3 L
--- NOTE | 2024-11-28 14:29 | P.DS_ITS ---
DS: Admitting Diagnosis Discharge Date 11/28/24 Admitting Diagnosis Shortness of breath. DS: Discharge Diagnosis Discharge Diagnosis (1) Chronic hypoxic respiratory failure, on home oxygen therapy: Code(s): J96.11 - Chronic respiratory failure with hypoxia; Z99.81 - Dependence on supplemental oxygen Status: Acute (2) Chronic obstructive pulmonary disease: Code(s): J44.9 - Chronic obstructive pulmonary disease, unspecified Status: Acute (3) Pleural effusion on right: Code(s): J90 - Pleural effusion, not elsewhere classified Status: Acute (4) Pneumonia: Code(s): J18.9 - Pneumonia, unspecified organism Status: Acute (5) Congestive heart failure: Code(s): I50.9 - Heart failure, unspecified Status: Acute (6) Chronic kidney disease, stage 3: Code(s): N18.30 - Chronic kidney disease, stage 3 unspecified Status: Acute (7) SVT (supraventricular tachycardia): Code(s): I47.10 - Supraventricular tachycardia, unspecified Status: Acute (8) Essential hypertension: Code(s): I10 - Essential (primary) hypertension Status: Acute (9) Spinal stenosis, lumbar region without neurogenic claudication: Code(s): M48.061 - Spinal stenosis, lumbar region without neurogenic claudication Status: Acute (10) Constipation: Code(s): K59.00 - Constipation, unspecified Status: Acute (11) GERD (gastroesophageal reflux disease): Code(s): K21.9 - Gastro-esophageal reflux disease without esophagitis Status: Acute (12) Occult gastrointestinal hemorrhage: Code(s): R19.5 - Other fecal abnormalities Status: Acute (13) Anemia: Qualifiers: Anemia type: unspecified type Qualified Code(s): D64.9 - Anemia, unspecified Code(s): D64.9 - Anemia, unspecified Status: Acute DS: Summary Hospital Course Hospital Course: 79-year-old male with combined systolic and diastolic congestive heart failure, ischemic cardiomyopathy, chronic hypoxic respiratory failure on 3 L home oxygen, chronic obstructive pulmonary disease, hypertension, and other comorbidities who presented to the emergency department for evaluation of shortness of breath. In the ED: He was afebrile on arrival with stable vital signs. SpO2 is 98% on 4 L. labs were significant for hemoglobin of 10.0, D-dimer 1.28, BUN 31, creatinine 1.50, proBNP 646. He tested negative for influenza, RSV, and COVID. Chest CTA was negative for pulmonary embolus, aneurysmal dilatation or dissect ion, and showed small bilateral pleural effusions with adjacent compressive atelectasis. EKG showed sinus bradycardia with first-degree AV block and incomplete right bundle-branch block. Venous doppler: No DVT - Echo obtained: Summary 1. Left ventricular chamber dimension is normal. 2. There is mildly increased left ventricular wall thickness. 3. Left ventricular systolic function is mildly reduced with an ejection fraction by Biplane Method of Discs of 49 %. 4. Left ventricular wall motion shows inf hypokinesis. 5. The left ventricular diastolic function is grade I diastolic dysfunction. 6. Right ventricular chamber dimension is normal. 7. Right ventricular systolic function is normal. 8. There is no aortic valve stenosis. 9. There is no mitral valve regurgitation. 10. There is no tricuspid valve regurgitation. - Repeat CXR showed: Impression: 1: Progression of coarse interstitial infiltrates, compatible with combination of chronic fibrosis and pneumonia. 2: Small right pleural effusion. Blood cultures no growth. Patient had SVT during hospitalization. Patient seen by Cardiology. Carvedilol changed to Metoprolol Succinate. Patient had stool positive for occult blood. GI saw patient. Patient to follow up with GI to set up an upper and lower scope in 4-6 weeks. Patient had pneumonia. Treated with IV antibiotics and transitioned to oral antibiotics. Status at Discharge Functional status at discharge: uses cane/walker Overall status at discharge: patient is progressing back to baseline Time Spent with Patient Time attestation: Total time spent providing and/or coordinating discharge services: Time spent: Greater than 30 minutes Exam Const: General: comfortable and no acute distress Eyes: Sclera: sclerae normal Resp: Effort & Inspection: normal respiratory effort Other: Slightly diminished, air movement improved. Cardio: Rate: regular rate Rhythm: regular rhythm Other: Telemetry SR-60 GI: GI Palp: Yes Soft to palpation Auscultation: normal bowel sounds Extrem: General: no pedal edema Psych: Mental Status: mental status grossly normal Affect: normal affect DS: Data Data Completed and Pending Labs on day of discharge: Labs from last 24 hours 11/28/24 09:45 WBC 7.0 RBC 2.92 L Hgb 9.1 L Hct 28.5 L MCV 97.6 MCH 31.2 MCHC 31.9 L RDW 13.9 Plt Count 267 MPV 10.5 H Immature Gran % (Auto) 0.9 H Neut % (Auto) 68.3 Lymph % (Auto) 16.6 L [place] % (Auto) 10.7 H Eos % (Auto) 3.2 Baso % (Auto) 0.3 Lymph # (Auto) 1.16 [place] # (Auto) 0.8 H Eos # (Auto) 0.2 Baso # (Auto) 0.0 Abs Immat Gran (auto) 0.06 H Absolute Neuts (auto) 4.8 Absolute Nucleated RBC 0.000 Nucleated RBC % 0.0 Sodium 136 L Potassium 4.5 Chloride 100 Carbon Dioxide 37 H Anion Gap -1 L BUN 26 H Creatinine 1.40 H Estim Creat Clear Calc 40 Estimated GFR 49 L Glucose 105 Calcium 9.1 Magnesium 2.2 Total Bilirubin 0.5 AST 24 ALT 18 Alkaline Phosphatase 63 Total Protein 6.0 L Albumin 3.3 L Preliminary micro results at discharge 11/23/24 09:40 Blood Culture - Preliminary Blood 11/23/24 09:49 Blood Culture - Preliminary Blood Discharge Plan Discharge Attending physician on discharge: Moy Mckeon Consulting providers: Chelsey Jeff; Pedrito Alvarez Discharging Clinician: Elenita Cardozo Anticipated Discharge Date/Time: 11/28/24 15:00 Patient Disposition: Home Health Service Activity: may shower and as tolerated Diet: heart healthy Discharge Instructions: * Take all doses of antibiotics. * Take inhalers as prescribed. * Follow up with primary in one week. * Report any blood in your stools to your provider. * Follow up with Dr. Yu in GI to get your outpatient testing set up. Thank you for entrusting [facility] with your healthcare! Patient Instructions: Antibiotic Form, Heart Failure (DC), Constipation (DC), Using Oxygen at Home (DC), COPD (Chronic Obstructive Pulmonary Disease) (DC), Hypertension (DC), Pneumonia (DC), Hemoccult Test (GEN) Patient Language: [place]an Stand Alone Forms: General Discharge Information Follow-up/Referrals: Eusebio Yu MD [Physician] - 6 Weeks Naveed Mcintosh MD [Primary Care Provider] - 1 Week Discharge Medications: New metoprolol succinate 50 mg Tablet Extended Release 24 Hr 50 mg PO HS Qty: 30 0RF amoxicillin-pot clavulanate 875-125 mg tablet 1 tablet PO Q12H Qty: 2 0RF Continued Mucinex 1,200 mg tablet extended release 12hr 1,200 mg PO BID PRN (Reason: cough) nitroglycerin 0.3 mg tablet, sublingual 0.3 mg sublingual Q5M PRN (Reason: Chest Pain) Rx Instructions: do not exceed 3 doses per episode finasteride [Proscar] 5 mg tablet 5 mg PO DAILY acetaminophen [Tylenol Extra Strength] 500 mg tablet 500 mg PO Q6H PRN (Reason: Pain) multivitamin Tablet 1 tablet PO DAILY ipratropium-albuterol 0.5 mg-3 mg(2.5 mg base)/3 mL solution for nebulization 3 ml inhalation Q8H PRN (Reason: shortness of breath or wheezing) Qty: 180 5RF (DME) nebulizer and compressor Device See Rx Instructions .Route Qty: 1 0RF Rx Instructions: As directed (DME) nebulizer accessories Kit See Rx Instructions .Route Qty: 1 0RF Rx Instructions: As directed Zyrtec 10 mg Capsule 10 mg PO DAILY PRN (Reason: allergies) polyethylene glycol 3350 [Miralax] 17 gram Powder In Packet 17 g PO QAM PRN (Reason: Constipation) Qty: 30 0RF aspirin 81 mg Tablet,Delayed Release (Dr/Ec) 81 mg PO DAILY Qty: 90 0RF furosemide 40 mg tablet 60 mg PO DAILY Patient Comments: Pt states dose was increased from 40mg to 60mg and is now only once a day Saccharomyces boulardii [Florastor] 250 mg Capsule 250 mg PO TID Qty: 30 0RF simethicone [Gas-X Extra Strength] 125 mg Capsule 125 mg PO PRN fenofibrate 160 mg tablet 160 mg PO DAILY Qty: 90 2RF losartan 50 mg tablet 50 mg PO DAILY Qty: 90 3RF Linzess 290 mcg capsule See Rx Instructions .ROUTE .COMPLEX Qty: 90 3RF Dose Instruction: TAKE 1 CAPSULE BY MOUTH DAILY Rx Instructions: TAKE 1 CAPSULE BY MOUTH DAILY esomeprazole magnesium 20 mg capsule,delayed release(DR/EC) See Rx Instructions .ROUTE .COMPLEX Qty: 90 3RF Dose Instruction: TAKE 1 CAPSULE BY MOUTH DAILY Rx Instructions: TAKE 1 CAPSULE BY MOUTH DAILY sertraline 50 mg tablet 50 mg PO DAILY Qty: 90 3RF Breztri Aerosphere 160-9-4.8 mcg/actuation HFA aerosol inhaler See Rx Instructions .ROUTE .COMPLEX Qty: 10.7 5RF Dose Instruction: INHALE 2 PUFFS BY MOUTH TWICE DAILY. RINSE AND SPIT AFTER USE Rx Instructions: INHALE 2 PUFFS BY MOUTH TWICE DAILY. RINSE AND SPIT AFTER USE trazodone 100 mg tablet 100 mg PO HS Qty: 90 1RF bupropion HCl 150 mg tablet sustained-release 12 hr 150 mg PO BID Qty: 180 2RF albuterol sulfate 90 mcg/actuation HFA aerosol inhaler 2 puff INHALATION Q4H PRN (Reason: Shortness Of Breath Or Wheezing) Qty: 8.5 5RF tamsulosin 0.4 mg capsule 0.4 mg PO DAILY Qty: 90 3RF morphine 30 mg tablet extended release 30 mg PO QAM Qty: 30 0RF atorvastatin 80 mg tablet 80 mg PO DAILY Qty: 90 0RF lorazepam 0.5 mg tablet 0.5 mg PO BID PRN (Reason: anxiety) Qty: 40 1RF Discontinued carvedilol 12.5 mg tablet 12.5 mg PO BID sulindac 200 mg tablet 200 mg PO BID Qty: 180 1RF etodolac 500 mg tablet 500 mg PO BID Qty: 60 0RF Date of admission: 11/24/24 16:15 Primary Care Provider: Naveed Mcintosh Admitting Provider: Luiz Tejeda Attending physician on admission: Margarita Perez Condition: Stable Hospitalist MIPS Heart Failure (Exclusion) Patient has history of Heart Transplant or Left Ventricular Assistive Device?: No IF YES, STOP HERE Heart Failure (Qualifier) Patient has current or prior documentation of LVEF less than or equal to 40%, or mod/servere depressed LVSF?: No IF NO, STOP HERE
== END 2024-11-28 16:20 | disposition home health service (06) | DRG 291 ==
LOC: ANHED 20:06 → ANH3MEDSUR 20:27
PROVIDERS: Nurse Practitioner; Physician Assistant; Student in an Organized Health Care Education/Training Program; Admitting Provider Internal Medicine; Emergency Provider Emergency Medicine; PCP Family Medicine Adolescent Medicine; Visit Provider Nurse Practitioner Family
DX: I13.0 Hypertensive heart and chronic kidney disease with heart failure and stage 1 through stage 4 chronic kidney disease, or unspecified chronic kidney disease (principal); J18.9 Pneumonia, unspecified organism; B02.29 Other postherpetic nervous system involvement; I47.10 Supraventricular tachycardia, unspecified; J44.0 Chronic obstructive pulmonary disease with (acute) lower respiratory infection; J90 Pleural effusion, not elsewhere classified; I50.42 Chronic combined systolic (congestive) and diastolic (congestive) heart failure; J96.11 Chronic respiratory failure with hypoxia; I25.5 Ischemic cardiomyopathy; N18.30 Chronic kidney disease, stage 3 unspecified; M48.061 Spinal stenosis, lumbar region without neurogenic claudication; K59.00 Constipation, unspecified; K21.9 Gastro-esophageal reflux disease without esophagitis; D64.9 Anemia, unspecified; N40.0 Benign prostatic hyperplasia without lower urinary tract symptoms; E78.5 Hyperlipidemia, unspecified; I35.0 Nonrheumatic aortic (valve) stenosis; I25.10 Atherosclerotic heart disease of native coronary artery without angina pectoris; M19.012 Primary osteoarthritis, left shoulder; M19.011 Primary osteoarthritis, right shoulder; M17.0 Bilateral primary osteoarthritis of knee; G25.81 Restless legs syndrome; J44.9 Chronic obstructive pulmonary disease, unspecified; R19.5 Other fecal abnormalities; Z20.822 Contact with and (suspected) exposure to COVID-19; Z99.81 Dependence on supplemental oxygen; Z85.89 Personal history of malignant neoplasm of other organs and systems; Z86.12 Personal history of poliomyelitis; I25.2 Old myocardial infarction; Z95.5 Presence of coronary angioplasty implant and graft; Z87.891 Personal history of nicotine dependence
CPT/HCPCS: 36415; 71045; 71046; 71275; 80048; 80053; 82274; 82607; 82728; 82746; 83540; 83550; 83735; 83880; 84484; 85025; 85380; 87040; 87637; 93005; 93970; 94640; 94668; 96365; 96366; 96367; 96375; 96376; 97162; 97165; 99285; A9270; C8929; G0378; J0456; J0696; J3475; Q9957; Q9967

== ENCOUNTER 2024-12-02 07:57 | Inpatient (IN) | payer MEDICARE, MEDICAID, SELFPAY ==
[2024-12-02] VITALS (16 sets, daily range): BP systolic 103–148; BP diastolic 43–76; PULSE 63–115; RESP 11–25; TEMP 36.6–37.2; O2SAT 90–97; BMI 26.2
--- NOTE | ~2024-12-02 | XR_ITS ---
XR chest 2V Ordering provider: Mau Jeff History: 79 years Male with . pneumonia . Comparison: December 02, 2024 FINDINGS: MEDIASTINUM: The cardiac silhouette is not enlarged. LUNGS: No pneumothorax. Opacification the right lower lobe suggestive of atelectasis versus pneumonia with pleural effusion. Effusion is increased compared to previous study OTHER: No free air under the diaphragm. IMPRESSION: Right basilar atelectasis versus pneumonia with pleural effusion. Reviewed, dictated and finalized at location A. OR NET APPLICATION DEVELOPER
--- NOTE | ~2024-12-02 | XR_ITS ---
EXAMINATION: XR chest 2V DATE: 12/02/2024 09:31 INDICATION: Shortness of breath. TECHNIQUE: Frontal and lateral views of the chest were obtained. COMPARISON: Chest view 11/22/2024, chest CT 11/20/2024 FINDINGS: There is a small loculated right pleural effusion. There are airspace opacities in the mid and lower lung zones. No pneumothorax. The heart size is normal. IMPRESSION: 1. Airspace opacities in the mid and lower lung zones with worsening at right lung base, consistent w ith pneumonia and chronic lung disease. 2. Stable small loculated right pleural effusion. Reviewed, dictated and finalized at location A. ET WELDER HELPER IMPRESSION: 1. Airspace opacities in the mid and lower lung zones with worsening at right l rj base, consistent with pneumonia and chronic lung disease. 2. Stable small loculated right pleural effusion.
--- NOTE | 2024-12-02 08:03 | ECG_ITS ---
Test Date: 2024-12-02 08:18:08 Measurements Intervals [place] Rate: 106 P: 38 LA: 206 QRS: -61 QRSD: 115 T: 37 QT: 350 QTc: 467 Interpretive Statements SINUS TACHYCARDIA LEFT ATRIAL ENLARGEMENT [-0.15mV P-WAVE IN V1/V2] PATTERN CONSISTENT WITH PULMONARY DISEASE INCOMPLETE RIGHT BUNDLE BRANCH BLOCK [90+ ms QRS DURATION, TERMINAL R IN V1/V2, 40+ ms S IN I/aVL/V4/V5/V6] LEFT ANTERIOR FASCICULAR BLOCK [QRS AXIS <= -45, QR IN I, RS IN II] SEPTAL MYOCARDIAL INFARCTION , PROBABLY OLD [40+ ms Q WAVE IN V1/V2] ABNORMAL ECG Electronically Signed On 12-03-2024 10:24:08 [employer] by Doroteo Cheng M.D.
[2024-12-02] MEDS: IPRATROPIUM 0.5 MG/ALBUTEROL SULFATE 2.5 MG AMPUL.NEB 3 ML INHALATION ×3 (08:23→18:14)
[2024-12-02 08:28] LABS: Basophils Absolute Auto 0.1 K/mm3 (0.0-0.1); Basophils Percent Auto 0.2 % (0.2-1.2); Eosinophils Percent Auto 0.2 % (0-4.4); Hematocrit 32.3 % (42.0-52.0); Hemoglobin 10.2 g/dL (14.0-18.0); Immature Granulocyte Absolute 0.15 K/mm3 (0.00-0.031); Immature Granulocyte Percent A 0.7 % (0-0.5); Lymphocytes Absolute Auto 0.63 K/mm3 (0.9-3.2); Lymphocytes Percent Auto 2.8 % (18.3-44.2); Mean Corpuscular HGB Conc 31.6 g/dl (32-36); Mean Corpuscular Hemoglobin 31.6 pg (26-34); Mean Platelet Volume 10.4 fl (7.4-10.4); Monocytes Absolute Auto 0.9 K/mm3 (0.1-0.6); Monocytes Percent Auto 4.2 % (2.6-8.5); Neutrophils Absolute Auto 20.6 K/mm3 (1.3-6.7); Neutrophils Percent Auto 91.9 % (45.5-73.1); Platelet Count Result 373 k/mm3 (150-375); Red Blood Count 3.23 M/mm3 (4.6-6.20); Red Cell Distribution Width 14.6 % (11.5-14.5); White Blood Count 22.4 K/mm3 (4.5-10.0)
[2024-12-02 08:48] LABS: Alanine Aminotransferase 17 U/L (6-50); Albumin Level 3.7 g/dL (3.5-5.1); Alkaline Phosphatase 88 U/L (38-126); Anion Gap 11 mmol/L (4-12); Aspartate Amino Transferase 25 U/L (17-59); Bilirubin,Total 0.8 mg/dL (0.2-1.3); Blood Urea Nitrogen 41 mg/dL (9-20); Carbon Dioxide 28 mmol/L (22-30); Chloride 100 mmol/L (98-107); Estimated CRCL calculation 30 ml/min; Estimated Glomerular Filt Rate 34; Glucose 116 mg/dL (65-110); Potassium 4.2 mmol/L (3.4-5.0); Sodium 139 mmol/L (137-145)
[2024-12-02 08:54] LABS: NT Pro B Type Natriuretic Pept 469 pg/mL (19.9-100)
--- NOTE | 2024-12-02 10:09 | ED_ITS ---
HPI - General Adult General Chief complaint: Shortness of Breath/Dyspnea Stated complaint: PNEUMONIA SX Time Seen by Provider: 12/02/24 07:59 History of Present Illness HPI narrative: Patient is an 79-year-old male who presents ER with sudden onset shortness of breath. Began last night. Recently discharged from this hospital after being treated for pneumonia. Unable to corn picker azithromycin as the pharmacy was out. No chest pain. Has not taken any nebulizer treatments. Related Data Home Medications ?Medication ?Instructions ?Recorded ?Confirmed ?Last Taken ?Type acetaminophen 500 mg tablet 1,000 mg PO Q6H PRN Pain 03/18/23 12/02/24 11/20/24 History (Tylenol Extra Strength) finasteride 5 mg tablet (Proscar) 5 mg PO DAILY 03/18/23 12/02/24 11/20/24 History multivitamin 1 tablet PO DAILY 03/18/23 12/02/24 11/20/24 History nitroglycerin 0.3 mg sublingual 0.3 mg sublingual Q5M PRN Chest 03/18/23 12/02/24 Unknown History tablet Pain cetirizine 10 mg capsule (Zyrtec) 10 mg PO DAILY PRN allergies 06/13/23 12/02/24 11/20/24 History guaifenesin 1,200 mg tablet, 1,200 mg PO BID PRN cough 08/11/24 12/02/24 11/20/24 History extended release 12 hr (Mucinex) furosemide 40 mg tablet 40 mg PO DAILY 11/04/24 12/02/24 11/20/24 History simethicone 125 mg capsule (Gas-X 125 mg PO PRN 11/21/24 12/02/24 Unknown History Extra Strength) baclofen 10 mg tablet 10 mg PO Q12H PRN muscle spasm 12/02/24 12/02/24 Unknown History Allergies Allergy/AdvReac Type Severity Reaction Status Date / Time clonazepam AdvReac Severe Drowsy Verified 12/02/24 08:14 roflumilast (From Daliresp) AdvReac Severe Diarrhea Verified 12/02/24 08:14 Review of Systems 2 Review of Systems: All systems reviewed & are unremarkable except as noted in HPI and below Constitutional: Constitutional: Reports no additional constitutional complaints ENT: Reports system reviewed and no additional complaints, except as documented Cardiovascular: Cardiovascular: Reports no additional cardiovascular complaints Respiratory: Respiratory: Reports no additional respiratory complaints Musculoskeletal: Musculoskeletal: Reports no additional musculoskeletal complaints [facility] Past Medical History Medical History (Updated 12/02/24 @ 18:55 by Castro Dickerson MD) Congestive heart failure Colon polyps Chronic obstructive pulmonary disease Gastroesophageal reflux disease Osteoarthritis Chronic kidney disease, stage 3 Benign prostatic hyperplasia Cancer of lower jaw bone (1986) Vitamin D deficiency Essential hypertension Depression Chronic hypoxic respiratory failure, on home oxygen therapy Erythema multiforme Essential tremor Hyperlipidemia 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 History of tobacco use Polio (1951) Other chronic pain Aortic stenosis Mild - Echo 05/15/2022 NSTEMI (non-ST elevated myocardial infarction) (08/2019) Normal colonoscopy (04/2015) Ischemic cardiomyopathy Echocardiogram 09/2021: Mildly reduced left ventricular systolic function EF of 45-50%, grade 1 diastolic dysfunction, inferior wall inferior septal wall basal inferior wall and mid inferior lateral wall hypokinesis with mild left atrial and large Atherosclerotic heart disease of [place] coronary artery without angina pectoris Abdominal aortic aneurysm, without rupture 02/07 CT Restless legs syndrome Spinal stenosis, lumbar region without neurogenic claudication Surgical History Surgical History History of tonsillectomy and adenoidectomy History of repair of rotator cuff bilateral History of colonoscopy with polypectomy History of bowel resection due to obstruction Presence of coronary angioplasty implant and graft History of coronary artery stent placement X2 History of mandibular surgery (1986) reconstructive surgery right mandible related to cancer Family History Family History Mother Diabetes mellitus Acute myocardial infarction Father Colon cancer COPD (chronic obstructive pulmonary disease) Sibling Colon cancer Acute myocardial infarction Lung cancer COPD (chronic obstructive pulmonary disease) Sibling COPD (chronic obstructive pulmonary disease) Sibling Congestive heart failure Sibling Dementia Social History Social History Social History: Surrogate medical decision maker: Code status: Modified code, no intubation. Smoking packs per day: 2 Smoking cigarettes per day: 40.0 Years smoked: 40 Smoking pack-years: 80.00 Smoking status: Former smoker Second hand tobacco smoke exposure: No Alcohol intake: former Substance use: never Substance use type: does not use Other substance usage details: quit alcohol in 2010 Last use: Last alcohol use 2010 Do You Feel Safe in your Home?: Yes Lack of Transportation: YES Lack of Food: Never True Current Housing: I Have Housing Concerned About Future Housing: No Difficulty Paying Gas/Electric Bills: No Difficulty Paying for Meds: No Currently Unemployed: No Education: Don't Know Difficulty w/ Childcare or Family Care: No Living arrangements: with family Additional living arrangements comments: . Lives in [place] with son and [id number]. 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 HEAD: Normocephalic, atraumatic. ENT: Mucous membranes moist. NECK: Supple. CHEST: Rhonchi bilaterally with increased respiratory rate. HEART: Regular rate and rhythm. Normal peripheral pulses. ABDOMEN: Soft, nontender, nondistended. EXTREMITIES: Normal range of motion. No edema. SKIN: Warm, dry, no rash. NEURO: Alert and oriented x3. PSYCH: Normal mood and affect. Course Course Emergency Course: Admit to hospitalist service. Patient started on ceftriaxone, azithromycin, vancomycin given recent hospitalization and worsening pneumonia and white count. Family bedside and educated on treatment plan. Vital Signs Vital signs: Vital Signs Temperature 98.4 F 12/02/24 07:54 Pulse Rate 109 H 12/02/24 07:54 Respiratory Rate 21 H 12/02/24 07:54 Blood Pressure 148/76 H 12/02/24 07:54 Pulse Oximetry 96 12/02/24 07:54 Oxygen Delivery Nasal Cannula 12/02/24 07:54 Oxygen Flow Rate 3 12/02/24 07:54 Temperature 98.7 F 12/02/24 14:00 Pulse Rate 79 12/02/24 18:20 Respiratory Rate 20 12/02/24 18:20 Blood Pressure 106/47 L 12/02/24 14:00 Pulse Oximetry 97 12/02/24 14:30 Oxygen Delivery Nasal Cannula 12/02/24 14:30 Oxygen Flow Rate 3 12/02/24 14:30 Fraction of Inspired Oxygen 32 12/02/24 14:30 Medical Decision Making Vital Signs Vital Signs: Vital Signs Temperature 98.4 F 12/02/24 07:54 Pulse Rate 109 H 12/02/24 07:54 Respiratory Rate 21 H 12/02/24 07:54 Blood Pressure 148/76 H 12/02/24 07:54 Pulse Oximetry 96 12/02/24 07:54 Oxygen Delivery Nasal Cannula 12/02/24 07:54 Oxygen Flow Rate 3 12/02/24 07:54 Temperature 98.7 F 12/02/24 14:00 Pulse Rate 79 12/02/24 18:20 Respiratory Rate 20 12/02/24 18:20 Blood Pressure 106/47 L 12/02/24 14:00 Pulse Oximetry 97 12/02/24 14:30 Oxygen Delivery Nasal Cannula 12/02/24 14:30 Oxygen Flow Rate 3 12/02/24 14:30 Fraction of Inspired Oxygen 32 12/02/24 14:30 Lab Data 12/02/24 08:15 12/02/24 08:15 Labs: Lab Results 12/02/24 12/02/24 Range/Units 08:15 08:15 WBC 22.4 H (4.5-10.0) K/mm3 RBC 3.23 L (4.6-6.20) M/mm3 Hgb 10.2 L (14.0-18.0) g/dL Hct 32.3 L (42.0-52.0) % MCV 100.0 (80-100) fl MCH 31.6 (26-34) pg MCHC 31.6 L (32-36) g/dl RDW 14.6 H (11.5-14.5) % Plt Count 373 (150-375) k/mm3 MPV 10.4 (7.4-10.4) fl Immature Gran % (Auto) 0.7 H (0-0.5) % Neut % (Auto) 91.9 H (45.5-73.1) % Lymph % (Auto) 2.8 L (18.3-44.2) % [place] % (Auto) 4.2 (2.6-8.5) % Eos % (Auto) 0.2 (0-4.4) % Baso % (Auto) 0.2 (0.2-1.2) % Lymph # (Auto) 0.63 L (0.9-3.2) K/mm3 [place] # (Auto) 0.9 H (0.1-0.6) K/mm3 Eos # (Auto) 0.0 (0-0.3) K/mm3 Baso # (Auto) 0.1 (0.0-0.1) K/mm3 Abs Immat Gran (auto) 0.15 H (0.00-0.031) K/mm3 Absolute Neuts (auto) 20.6 H (1.3-6.7) K/mm3 Absolute Nucleated RBC 0.000 (0.0-0.012) K/mm3 Nucleated RBC % 0.0 (0.0-0.2) % Sodium 139 (137-145) mmol/L Potassium 4.2 (3.4-5.0) mmol/L Chloride 100 (98-107) mmol/L Carbon Dioxide 28 (22-30) mmol/L Anion Gap 11 (4-12) mmol/L BUN 41 H D (9-20) mg/dL Creatinine 1.92 H (0.7-1.3) mg/dL Estim Creat Clear Calc 30 ml/min Estimated GFR 34 L (59 - ) Glucose 116 H (65-110) mg/dL Calcium 9.0 (8.4-10.2) mg/dL Total Bilirubin 0.8 (0.2-1.3) mg/dL AST 25 (17-59) U/L ALT 17 (6-50) U/L Alkaline Phosphatase 88 (38-126) U/L NT-Pro-B Natriuret Pep 469 H Cancelled (19.9-100) pg/mL Total Protein 7.0 (6.3-8.2) g/dL Albumin 3.7 (3.5-5.1) g/dL Imaging Data Radiologist's impression: ITS Impressions Chest X-Ray 12/02/24 09:33 IMPRESSION: 1. Airspace opacities in the mid and lower lung zones with worsening at right lung base, consistent with pneumonia and chronic lung disease. 2. Stable small loculated right pleural effusion. Discharge Plan Discharge Clinical Impression: Pneumonia Patient Disposition: Still a Patient Condition: Stable
[2024-12-02 10:15] LABS: Lactic Acid Reflex 0.8 mmol/L (0.7-2.0)
[2024-12-02] MEDS: AZITHROMYCIN 500 MG/NS 250 ML 500 MG/250 ML BAG 250 MG IVPB (10:17)
[2024-12-02] MEDS: MORPHINE SULFATE (*CRX) 4 MG/ML INJ IV PUSH (10:43)
[2024-12-02] MEDS: VANCOMYCIN 1,250 MG/NS 250 ML 1,250 MG/250 ML BAG 166.67 MG IVPB (10:55)
[2024-12-02 11:38] LABS: MRSA (PCR) NOT DETECTED (NOT DETECTE)
--- NOTE | 2024-12-02 12:26 | P.HP_ITS ---
H&P: HPI History of Present Illness Date/Time: 12/02/24 12:26 Chief Complaint: Shortness of breath Narrative: 79-year-old male presents the hospital with history of congestive heart failure, COPD, chronic kidney disease stage 3, BPH, cancer of the lower jaw, and abdominal aneurysm presents the hospital with shortness of breath. Patient was recently in the hospital for pneumonia and was sent home on azithromycin however cannot be filled because the pharmacy did not have it. Patient came back to the hospital with worsening of shortening and shortness of breath. Leukocytosis at 22.4, anemia at 10.2, BUN of 41, creatinine of 1.9 to baseline appears to be 1.4, BNP of 469, chest x-ray shows Airspace opacities in the mid and lower lung zones with worsening at right lung base, consistent with pneu monia and chronic lung disease and Stable small loculated right pleural effusion. EKG shows sinus tachycardia with QTC of 467. Blood cultures pending. Patient was started on Rocephin, vancomycin and azithromycin. Review of Systems Review of Systems: 12 systems were reviewed and are negativ e except for as per HPI. 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 History of tobacco use Polio (1951) Other chronic pain Aortic stenosis Mild - Echo 05/15/2022 NSTEMI (non-ST elevated myocardial infarction) (08/2019) Normal colonoscopy (04/2015) Ischemic cardiomyopathy Echocardiogram 09/2021: Mildly reduced left ventricular systolic function EF of 45-50%, grade 1 diastolic dysfunction, inferior wall inferior septal wall basal inferior wall and mid inferior lateral wall hypokinesis with mild left atrial and large Atherosclerotic heart disease of [place] coronary artery without angina pectoris Abdominal aortic aneurysm, without rupture 02/07 CT Restless legs syndrome Spinal stenosis, lumbar region without neurogenic claudication Surgical History Surgical History History of tonsillectomy and adenoidectomy History of repair of rotator cuff bilateral History of colonoscopy with polypectomy History of bowel resection due to obstruction Presence of coronary angioplasty implant and graft History of coronary artery stent placement X2 History of mandibular surgery (1986) reconstructive surgery right mandible related to cancer Family History Family History Mother Diabetes mellitus Acute myocardial infarction Father Colon cancer COPD (chronic obstructive pulmonary disease) Sibling Colon cancer Acute myocardial infarction Lung cancer COPD (chronic obstructive pulmonary disease) Sibling COPD (chronic obstructive pulmonary disease) Sibling Congestive heart failure Sibling Dementia Social History Social History Social History: Surrogate medical decision maker: Code status: Modified code, no intubation. Smoking packs per day: 2 Smoking cigarettes per day: 40.0 Years smoked: 40 Smoking pack-years: 80.00 Smoking status: Former smoker Second hand tobacco smoke exposure: No Alcohol intake: former Substance use: never Substance use type: does not use Other substance usage details: quit alcohol in 2010 Last use: Last alcohol use 2010 Do You Feel Safe in your Home?: Yes Lack of Transportation: YES Lack of Food: Never True Current Housing: I Have Housing Concerned About Future Housing: No Difficulty Paying Gas/Electric Bills: No Difficulty Paying for Meds: No Currently Unemployed: No Education: Don't Know Difficulty w/ Childcare or Family Care: No Living arrangements: with family Additional living arrangements comments: . Lives in [place] with son and [id number]. 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: retired Additional occupation/education comments: [employer] Spiritual care concerns: No Agree to blood products: Yes Meds Home Medications and Allergies Home Medications ?Medication ?Instructions ?Recorded ?Confirmed ?Type acetaminophen 500 mg tablet 1,000 mg PO Q6H PRN Pain 03/18/23 12/02/24 History (Tylenol Extra Strength) finasteride 5 mg tablet (Proscar) 5 mg PO DAILY 03/18/23 12/02/24 History multivitamin 1 tablet PO DAILY 03/18/23 12/02/24 History nitroglycerin 0.3 mg sublingual 0.3 mg sublingual Q5M PRN Chest 03/18/23 12/02/24 History tablet Pain cetirizine 10 mg capsule (Zyrtec) 10 mg PO DAILY PRN allergies 06/13/23 12/02/24 History aspirin 81 mg tablet,delayed 81 mg PO DAILY #90 tabs 06/15/23 12/02/24 Rx release polyethylene glycol 3350 17 gram 17 g PO QAM PRN Constipation #30 ea 06/15/23 12/02/24 Rx oral powder packet (Miralax) fenofibrate 160 mg tablet 160 mg PO DAILY #90 tabs 09/16/23 12/02/24 Rx losartan 50 mg tablet 50 mg PO DAILY #90 tabs 02/24/24 12/02/24 Rx nebulizer accessories #1 ea 04/12/24 12/02/24 Rx nebulizer and compressor #1 ea 04/12/24 12/02/24 Rx ipratropium 0.5 mg-albuterol 3 mg 3 ml inhalation Q8H PRN shortness 04/19/24 12/02/24 Rx (2.5 mg base)/3 mL nebulization of breath or wheezing #180 mL soln esomeprazole magnesium 20 mg See Rx Instructions .Route 04/28/24 12/02/24 Rx capsule,delayed release .COMPLEX #90 caps linaclotide 290 mcg capsule See Rx Instructions .Route 04/28/24 12/02/24 Rx (Linzess) .COMPLEX #90 caps sertraline 50 mg tablet 50 mg PO DAILY #90 tabs 07/18/24 12/02/24 Rx budesonide 160 mcg-glycopyr 9 See Rx Instructions .Route 07/27/24 12/02/24 Rx mcg-formot 4.8 mcg/actuation HFA .COMPLEX #10.7 grams inhaler (Breztri Aerosphere) trazodone 100 mg tablet 100 mg PO HS Insomnia #90 tabs 08/07/24 12/02/24 Rx guaifenesin 1,200 mg tablet, 1,200 mg PO BID PRN cough 08/11/24 12/02/24 History extended release 12 hr (Mucinex) bupropion HCl 150 mg tablet,12 hr 150 mg PO BID #180 tabs 09/22/24 12/02/24 Rx sustained-release albuterol sulfate 90 mcg/actuation 2 puff inhalation Q4H PRN 10/03/24 12/02/24 Rx aerosol inhaler Shortness Of Breath Or Wheezing #8.5 grams tamsulosin 0.4 mg capsule 0.4 mg PO DAILY #90 caps 10/12/24 12/02/24 Rx atorvastatin 80 mg tablet 80 mg PO DAILY #90 tabs 10/26/24 12/02/24 Rx morphine 30 mg tablet,extended 30 mg PO QAM #30 tabs 10/26/24 12/02/24 Rx release lorazepam 0.5 mg tablet 0.5 mg PO BID PRN anxiety #40 tabs 11/02/24 12/02/24 Rx furosemide 40 mg tablet 40 mg PO DAILY 11/04/24 12/02/24 History Saccharomyces boulardii 250 mg 250 mg PO TID #30 caps 11/06/24 12/02/24 Rx capsule (Florastor) simethicone 125 mg capsule (Gas-X 125 mg PO PRN 11/21/24 12/02/24 History Extra Strength) metoprolol succinate 50 mg 50 mg PO HS #30 tabs 11/28/24 12/02/24 Rx tablet,extended release 24 hr amoxicillin 875 mg-potassium 1 tablet PO Q12H #14 tabs 11/30/24 12/02/24 Rx clavulanate 125 mg tablet baclofen 10 mg tablet 10 mg PO Q12H PRN muscle spasm 12/02/24 12/02/24 History Allergies Allergy/AdvReac Type Severity Reaction Status Date / Time clonazepam AdvReac Severe Drowsy Verified 12/02/24 08:14 roflumilast (From Dalires) AdvReac Severe Diarrhea Verified 12/02/24 08:14 Vital Signs Vital Signs - 24 hr 12/02/24 07:54 12/02/24 08:13 12/02/24 08:23 Temperature 98.4 F Pulse Rate 109 H 109 H 105 H Respiratory Rate 21 H 20 Blood Pressure 148/76 H Pulse Oximetry 96 Oxygen Delivery Nasal Cannula Oxygen Flow Rate 3 12/02/24 08:29 12/02/24 08:36 12/02/24 09:29 Temperature Pulse Rate 104 H 115 H 111 H Respiratory Rate 20 25 H 11 L Blood Pressure 120/62 103/65 Pulse Oximetry 95 94 Oxygen Delivery Oxygen Flow Rate 12/02/24 09:31 12/02/24 10:20 Temperature Pulse Rate 104 H Respiratory Rate 22 H Blood Pressure 117/53 L Pulse Oximetry 94 93 Oxygen Delivery Nasal Cannula Oxygen Flow Rate 3 Exam Narrative: General: well appearing, appears stated age. HEENT: normocephalic, atraumatic. Mucous membranes moist. EOMI, PERRLA, bilateral sclera anicteric, no conjunctival injection. Neck supple without JVD, lymphadenopathy, or bruit. Respiratory: Extremely coarse to ascultation bilaterally. Cardiovascular: Regular rate and rhythm, normal S1-S2 upon ascultation. No murmurs, rubs, or clicks. PMI is nondisplaced, capillary refill less than 3 second. Abdomen: Soft, round, no pulsatile masses, nondistended and nontender. No rebound, no guarding. No CVA tenderness, no hepatosplenomegaly. Bowel sounds present to all four quadrants. No high pitch or tinkling sounds, resonant to p ercussion. Extremities: No cyanosis, clubbing, or edema present. Pulses are palpable 2/2. Active ROM to all four extremities. Neuro: Alert and orientated x 4. PERRLA. Cranial nerves 2-12 intact without focal deficit. Skin: Warm, dry, and intact, without rash, erythema, or lesion. Psych: pleasant, cooperative, normal speech, normal affect, no hallucinations, no dysarthia H&P: Results Labs Labs: Short CBC 12/02/24 Range/Units 08:15 WBC 22.4 H (4.5-10.0) K/mm3 Hgb 10.2 L (14.0-18.0) g/dL Hct 32.3 L (42.0-52.0) % Plt Count 373 (150-375) k/mm3 BMP 12/02/24 08:15 Sodium 139 Potassium 4.2 Chloride 100 Carbon Dioxide 28 BUN 41 H D Creatinine 1.92 H Glucose 116 H Calcium 9.0 Liver Function 12/02/24 Range/Units 08:15 Total Bilirubin 0.8 (0.2-1.3) mg/dL AST 25 (17-59) U/L ALT 17 (6-50) U/L Alkaline Phosphatase 88 (38-126) U/L Albumin 3.7 (3.5-5.1) g/dL Assessment and Plan Assessment and plan (1) Pneumonia: Code(s): J18.9 - Pneumonia, unspecified organism Status: Acute Assessment and Plan: Azithromycin, vancomycin and Rocephin DuoNebs Wean oxygen as able Guaifenesin (2) Congestive heart failure: Code(s): I50.9 - Heart failure, unspecified Status: Acute Assessment and Plan: Patient appears fluid overloaded on assessment Cardiology consulted Last echo 11/22/2024 EF of 49% IV Lasix 60 mg x 1 Stop IVF (3) Acute on chronic respiratory failure with hypoxia: Code(s): J96.21 - Acute and chronic respiratory failure with hypoxia Status: Acute Assessment and Plan: History of COPD, Secondary to above (4) Chronic kidney disease, stage 3: Code(s): N18.30 - Chronic kidney disease, stage 3 unspecified Status: Acute Assessment and Plan: Baseline around 1.4 Patient appears to be fluid overloaded now, with coarse breath sounds and complaints of shortness of breath, will give IV Lasix BMP in a.m. (5) Pleural effusion on right: Code(s): J90 - Pleural effusion, not elsewhere classified Status: Acute Assessment and Plan: Stable on chest x-ray (6) BPH (benign prostatic hyperplasia): Code(s): N40.0 - Benign prostatic hyperplasia without lower urinary tract symptoms Status: Acute Assessment and Plan: Restart home medication (7) Anemia: Qualifiers: Anemia type: unspecified type Qualified Code(s): D64.9 - Anemia, unspecified Code(s): D64.9 - Anemia, unspecified Status: Acute Assessment and Plan: Appears to be at baseline Daily CBC Transfuse for hemoglobin less than 7 (8) HTN (hypertension): Qualifiers: Hypertension type: primary hypertension Qualified Code(s): I10 - Essential (primary) hypertension Code(s): I10 - Essential (primary) hypertension Status: Chronic Assessment and Plan: Restart home antihypertensive Quality VTE Prophylaxis VTE prophylaxis: mechanical ordered Hospitalist MIPS Advance Care Plan I have confirmed that the patient's Advanced Care Plan is present, code status is documented, or surrogate decision maker is listed in patient medical record.: Yes Medication Reconciliation I have utilized all available resources to obtain, update and review the patients current medications (includes all prescriptions, OTC, herbals, cannabis, and nutritional supplements).: Yes
[2024-12-02] MEDS: VANCOMYCIN 1,000 MG/NS 250 ML 1,000 MG/250 ML BAG 250 MG IVPB (13:00)
[2024-12-02] MEDS: SODIUM CHLORIDE 0.9% IV 1,000 ML 125 ML IV CONT (13:00)
[2024-12-02] MEDS: BACLOFEN 10 MG TABLET PO (13:13)
[2024-12-02] MEDS: LORazepam (*CRX) 0.5 MG TABLET PO (17:24)
[2024-12-02] MEDS: buPROPion HCL SR (12 HR) 150 MG TAB PO (17:24)
[2024-12-02] MEDS: HYDROcodone/acetaminophen (*CRX) 5-325 MG TABLET 1 TAB PO (20:06)
[2024-12-02] MEDS: FUROSEMIDE INJ 100 MG/10 ML VIAL 60 MG IV PUSH (22:27)
[2024-12-02] MEDS: traZODone HCL 50 MG TABLET 100 MG PO (22:27)
[2024-12-02] MEDS: METOPROLOL SUCCINATE EXT REL 50 MG TABCR PO (22:27)
[2024-12-03] VITALS (16 sets, daily range): BP systolic 110–136; BP diastolic 43–55; PULSE 60–79; RESP 13–20; TEMP 36.2–37.1; O2SAT 95–100
[2024-12-03] MEDS: IPRATROPIUM 0.5 MG/ALBUTEROL SULFATE 2.5 MG AMPUL.NEB 3 ML INHALATION ×4 (02:12→20:53)
[2024-12-03 07:16] LABS: Basophils Percent Auto 0.1 % (0.2-1.2); Eosinophils Percent Auto 0.4 % (0-4.4); Hematocrit 26.8 % (42.0-52.0); Hemoglobin 8.2 g/dL (14.0-18.0); Immature Granulocyte Absolute 0.06 K/mm3 (0.00-0.031); Immature Granulocyte Percent A 0.6 % (0-0.5); Lymphocytes Percent Auto 9.3 % (18.3-44.2); Mean Corpuscular HGB Conc 30.6 g/dl (32-36); Mean Corpuscular Hemoglobin 30.6 pg (26-34); Mean Platelet Volume 10.2 fl (7.4-10.4); Monocytes Absolute Auto 0.7 K/mm3 (0.1-0.6); Monocytes Percent Auto 7.7 % (2.6-8.5); Neutrophils Absolute Auto 7.9 K/mm3 (1.3-6.7); Neutrophils Percent Auto 81.9 % (45.5-73.1); Platelet Count Result 271 k/mm3 (150-375); Red Blood Count 2.68 M/mm3 (4.6-6.20); Red Cell Distribution Width 15.4 % (11.5-14.5); White Blood Count 9.7 K/mm3 (4.5-10.0)
[2024-12-03 07:41] LABS: Anion Gap 3 mmol/L (4-12); Blood Urea Nitrogen 25 mg/dL (9-20); Calcium 8.5 mg/dL (8.4-10.2); Carbon Dioxide 31 mmol/L (22-30); Chloride 104 mmol/L (98-107); Estimated CRCL calculation 46 ml/min; Estimated Glomerular Filt Rate 58; Glucose 100 mg/dL (65-110); Potassium 3.7 mmol/L (3.4-5.0); Sodium 138 mmol/L (137-145)
[2024-12-03] MEDS: FLUTICASONE/UMECLIDIN/VILANTER 100-62.5-25 MCG ELLIPTA 1 PUFF INHALATION (07:46)
--- NOTE | 2024-12-03 09:47 | P.CONCA_ITS ---
Assessment and Plan Assessment and plan (1) Ischemic cardiomyopathy: Code(s): I25.5 - Ischemic cardiomyopathy Status: Acute Assessment and Plan: Continue metoprolol, home dose furosemide, losartan. Mildly reduced EF (2) CHF (congestive heart failure), NYHA class I: Qualifiers: Congestive heart failure type: diastolic Congestive heart failure chronicity: chronic Qualified Code(s): I50.32 - Chronic diastolic (congestive) heart failure Code(s): I50.9 - Heart failure, unspecified Status: Chronic Assessment and Plan: Stable. Continue metoprolol. Discontinue IV furosemide. Resume home dose furosemide 40 mg daily. Continue losartan (3) Essential hypertension: Code(s): I10 - Essential (primary) hypertension Status: Acute Assessment and Plan: Continue home med (4) HTN (hypertension): Qualifiers: Hypertension type: primary hypertension Qualified Code(s): I10 - Essential (primary) hypertension Code(s): I10 - Essential (primary) hypertension Status: Chronic (5) Shortness of breath: Code(s): R06.02 - Shortness of breath Status: Acute Assessment and Plan: His shortness of breath is predominated to pneumonia. White count was elevated. His BNP was only minimally elevated. He is not in overt heart failure and my opinion has no significant decompensation at this point. Treat pneumonia. History of Present Illness History of Present Illness Consult date/time: 12/03/24 09:47 Requesting physician: Ina Cortes APRN Consult reason: congestive heart failure Reason For Visit: PNEUMONIA Narrative: Reason for consultation: Acute CHF Date of service 12/03/2024 Requesting provider: Ina Cortes History: Patient is an 79-year-old patient of Dr. Clemons who was admitted for shortness of breath and cough. BNP was minimally elevated and this likely triggered a cardiology consult. Chest x-ray though does not show significant fluid but does show pneumonia and chronic lung disease. Patient states that he woke up acutely short of breath 2 days ago. He had some associated pleuritic chest pain as well as productive cough. He denies any recent syncope or presyncope. No no unusual edema. No palpitations. He currently is feeling better Review of Systems 2 Review of Systems: All systems reviewed & are unremarkable except as noted in HPI and below Constitutional: Constitutional: Reports weakness Eyes: Eyes: Denies blurry vision ENT: Reports Normal hearing present Cardiovascular: Cardiovascular: Reports chest pain Respiratory: Respiratory: Reports cough and Reports dyspnea Gastrointestinal: Gastrointestinal: Denies abdominal pain Genitourinary: Genitourinary: Denies hematuria Musculoskeletal: Musculoskeletal: Denies joint swelling Integumentary/Breasts: Skin/Breast: Denies wounds Neurologic: Denies Abnormal speech present Psychiatric: Psychiatric: Denies confusion Endocrine: Endocrine: Denies excessive sweating Hematologic/Lymphatic: Hematologic/Lymphatic: Denies easy bleeding Allergic/Immunologic: Allergic/Immunologic: Denies GI upset with certain foods [facility] Past Medical History Medical History Congestive heart failure Colon polyps Chronic obstructive pulmonary disease Gastroesophageal reflux disease Osteoarthritis Chronic kidney disease, stage 3 Benign prostatic hyperplasia Cancer of lower jaw bone (1986) Vitamin D deficiency Essential hypertension Depression Chronic hypoxic respiratory failure, on home oxygen therapy Erythema multiforme Essential tremor Hyperlipidemia 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 History of tobacco use Polio (1951) Other chronic pain Aortic stenosis Mild - Echo 05/15/2022 NSTEMI (non-ST elevated myocardial infarction) (08/2019) Normal colonoscopy (04/2015) Ischemic cardiomyopathy Echocardiogram 09/2021: Mildly reduced left ventricular systolic function EF of 45-50%, grade 1 diastolic dysfunction, inferior wall inferior septal wall basal inferior wall and mid inferior lateral wall hypokinesis with mild left atrial and large Atherosclerotic heart disease of [place] coronary artery without angina pectoris Abdominal aortic aneurysm, without rupture 02/07 CT Restless legs syndrome Spinal stenosis, lumbar region without neurogenic claudication Surgical History Surgical History History of tonsillectomy and adenoidectomy History of repair of rotator cuff bilateral History of colonoscopy with polypectomy History of bowel resection due to obstruction Presence of coronary angioplasty implant and graft History of coronary artery stent placement X2 History of mandibular surgery (1986) reconstructive surgery right mandible related to cancer Family History Family History Mother Diabetes mellitus Acute myocardial infarction Father Colon cancer COPD (chronic obstructive pulmonary disease) Sibling Colon cancer Acute myocardial infarction Lung cancer COPD (chronic obstructive pulmonary disease) Sibling COPD (chronic obstructive pulmonary disease) Sibling Congestive heart failure Sibling Dementia Social History Social History Social History: Surrogate medical decision maker: Code status: Modified code, no intubation. Smoking packs per day: 2 Smoking cigarettes per day: 40.0 Years smoked: 40 Smoking pack-years: 80.00 Smoking status: Former smoker Second hand tobacco smoke exposure: No Alcohol intake: former Substance use: never Substance use type: does not use Other substance usage details: quit alcohol in 2010 Last use: Last alcohol use 2010 Do You Feel Safe in your Home?: Yes Lack of Transportation: YES Lack of Food: Never True Current Housing: I Have Housing Concerned About Future Housing: No Difficulty Paying Gas/Electric Bills: No Difficulty Paying for Meds: No Currently Unemployed: No Education: Don't Know Difficulty w/ Childcare or Family Care: No Living arrangements: with family Additional living arrangements comments: . Lives in [place] with son and [id number]. 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 [employer] Spiritual care concerns: No Agree to blood products: Yes Meds Home Medications and Allergies Home Medications ?Medication ?Instructions ?Recorded ?Confirmed ?Type acetaminophen 500 mg tablet 1,000 mg PO Q6H PRN Pain 03/18/23 12/02/24 History (Tylenol Extra Strength) finasteride 5 mg tablet (Proscar) 5 mg PO DAILY 03/18/23 12/02/24 History multivitamin 1 tablet PO DAILY 03/18/23 12/02/24 History nitroglycerin 0.3 mg sublingual 0.3 mg sublingual Q5M PRN Chest 03/18/23 12/02/24 History tablet Pain cetirizine 10 mg capsule (Zyrtec) 10 mg PO DAILY PRN allergies 06/13/23 12/02/24 History aspirin 81 mg tablet,delayed 81 mg PO DAILY #90 tabs 06/15/23 12/02/24 Rx release polyethylene glycol 3350 17 gram 17 g PO QAM PRN Constipation #30 ea 06/15/23 12/02/24 Rx oral powder packet (Miralax) fenofibrate 160 mg tablet 160 mg PO DAILY #90 tabs 09/16/23 12/02/24 Rx losartan 50 mg tablet 50 mg PO DAILY #90 tabs 02/24/24 12/02/24 Rx nebulizer accessories #1 ea 04/12/24 12/02/24 Rx nebulizer and compressor #1 ea 04/12/24 12/02/24 Rx ipratropium 0.5 mg-albuterol 3 mg 3 ml inhalation Q8H PRN shortness 04/19/24 12/02/24 Rx (2.5 mg base)/3 mL nebulization of breath or wheezing #180 mL soln esomeprazole magnesium 20 mg See Rx Instructions .Route 04/28/24 12/02/24 Rx capsule,delayed release .COMPLEX #90 caps linaclotide 290 mcg capsule See Rx Instructions .Route 04/28/24 12/02/24 Rx (Linzess) .COMPLEX #90 caps sertraline 50 mg tablet 50 mg PO DAILY #90 tabs 07/18/24 12/02/24 Rx budesonide 160 mcg-glycopyr 9 See Rx Instructions .Route 07/27/24 12/02/24 Rx mcg-formot 4.8 mcg/actuation HFA .COMPLEX #10.7 grams inhaler (Breztri Aerosphere) trazodone 100 mg tablet 100 mg PO HS Insomnia #90 tabs 08/07/24 12/02/24 Rx guaifenesin 1,200 mg tablet, 1,200 mg PO BID PRN cough 08/11/24 12/02/24 History extended release 12 hr (Mucinex) bupropion HCl 150 mg tablet,12 hr 150 mg PO BID #180 tabs 09/22/24 12/02/24 Rx sustained-release albuterol sulfate 90 mcg/actuation 2 puff inhalation Q4H PRN 10/03/24 12/02/24 Rx aerosol inhaler Shortness Of Breath Or Wheezing #8.5 grams tamsulosin 0.4 mg capsule 0.4 mg PO DAILY #90 caps 10/12/24 12/02/24 Rx atorvastatin 80 mg tablet 80 mg PO DAILY #90 tabs 10/26/24 12/02/24 Rx morphine 30 mg tablet,extended 30 mg PO QAM #30 tabs 10/26/24 12/02/24 Rx release lorazepam 0.5 mg tablet 0.5 mg PO BID PRN anxiety #40 tabs 11/02/24 12/02/24 Rx furosemide 40 mg tablet 40 mg PO DAILY 11/04/24 12/02/24 History Saccharomyces boulardii 250 mg 250 mg PO TID #30 caps 11/06/24 12/02/24 Rx capsule (Florastor) simethicone 125 mg capsule (Gas-X 125 mg PO PRN 11/21/24 12/02/24 History Extra Strength) metoprolol succinate 50 mg 50 mg PO HS #30 tabs 11/28/24 12/02/24 Rx tablet,extended release 24 hr amoxicillin 875 mg-potassium 1 tablet PO Q12H #14 tabs 11/30/24 12/02/24 Rx clavulanate 125 mg tablet baclofen 10 mg tablet 10 mg PO Q12H PRN muscle spasm 12/02/24 12/02/24 History Allergies Allergy/AdvReac Type Severity Reaction Status Date / Time clonazepam AdvReac Severe Drowsy Verified 12/02/24 08:14 [facility]ilast ([facility] AdvReac Severe Diarrhea Verified 12/02/24 08:14 Vital Signs Vital Signs - 24 hr 12/02/24 10:20 12/02/24 11:51 12/02/24 14:00 Temperature 37.1 C Pulse Rate 104 H 63 Respiratory Rate 22 H 18 Blood Pressure 117/53 L 106/47 L Pulse Oximetry 93 95 90 Oxygen Delivery Nasal Cannula Oxygen Flow Rate 2 Fraction of Inspired Oxygen 12/02/24 14:30 12/02/24 14:30 12/02/24 14:37 Temperature Pulse Rate 85 83 Respiratory Rate 20 20 Blood Pressure Pulse Oximetry 97 Oxygen Delivery Nasal Cannula Oxygen Flow Rate 3 Fraction of Inspired Oxygen 32 12/02/24 18:14 12/02/24 18:20 12/02/24 21:26 Temperature 37.2 C Pulse Rate 80 79 96 Respiratory Rate 20 20 17 Blood Pressure 146/49 H Pulse Oximetry 96 Oxygen Delivery Oxygen Flow Rate Fraction of Inspired Oxygen 12/02/24 23:58 12/03/24 02:12 12/03/24 02:12 Temperature 36.6 C Pulse Rate 73 75 Respiratory Rate 14 20 Blood Pressure 113/43 L Pulse Oximetry 97 95 Oxygen Delivery Nasal Cannula Oxygen Flow Rate 3 Fraction of Inspired Oxygen 12/03/24 02:26 12/03/24 04:00 12/03/24 07:49 Temperature 36.2 C L Pulse Rate 79 78 65 Respiratory Rate 20 13 20 Blood Pressure 136/52 L Pulse Oximetry 100 Oxygen Delivery Oxygen Flow Rate Fraction of Inspired Oxygen 12/03/24 07:49 12/03/24 07:57 Temperature Pulse Rate 60 Respiratory Rate 20 Blood Pressure Pulse Oximetry 98 Oxygen Delivery Nasal Cannula Oxygen Flow Rate 3 Fraction of Inspired Oxygen Exam 2 Narrative: Awake alert appears stated age Const: General: comfortable and no acute distress HENMT: Face/Nose/Sinus: Normal nares present Mouth: Yes moist mucous membranes Eyes: General: appearance normal, both eyes and all related structures S clera: sclerae normal Neck: Neck: supple and no JVD Chest: Other: No reproducible chest wall pain to palpation Resp: Effort & Inspection: normal respiratory effort Auscultation: rhonchi, wheezes and diminished lung sounds Cardio: Rate: regular rate Rhythm: regular rhythm GI: Inspection: non-distended GI Palp: Yes Soft to palpation A uscultation: normal bowel sounds Skin: General skin exam: normal color Neuro: General: gait normal Speech: normal speech Extrem: General: normal to inspection Psych: Mental Status: mental status grossly normal Results Labs and Meds 12/03/24 07:03 12/03/24 07:03 Lab results: CBC 12/03/24 Range/Units 07:03 WBC 9.7 (4.5-10.0) K/mm3 RBC 2.68 L (4.6-6.20) M/mm3 Hgb 8.2 L (14.0-18.0) g/dL Hct 26.8 L (42.0-52.0) % Plt Count 271 (150-375) k/mm3 Lymph # (Auto) 0.90 (0.9-3.2) K/mm3 [place] # (Auto) 0.7 H (0.1-0.6) K/mm3 Eos # (Auto) 0.0 (0-0.3) K/mm3 Baso # (Auto) 0.0 (0.0-0.1) K/mm3 Comprehensive Metabolic Panel 12/03/24 Range/Units 07:03 Sodium 138 (137-145) mmol/L Potassium 3.7 (3.4-5.0) mmol/L Chloride 104 (98-107) mmol/L Carbon Dioxide 31 H (22-30) mmol/L BUN 25 H D (9-20) mg/dL Creatinine 1.21 (0.7-1.3) mg/dL Glucose 100 (65-110) mg/dL Calcium 8.5 (8.4-10.2) mg/dL Intake and Output 12/02/24 12/03/24 12/03/24 23:59 07:59 15:59 Intake Total 240 800 Output Total 450 1700 Balance -210 -900 Intake: Oral 240 800 Output: Urine 450 Catheter Urine 1700 External/Condom 1700 Other: # Unmeasured Voids 1 Number of Bowel Movements Today 1 EKG is personally reviewed and independently interpreted showing normal sinus rhythm/sinus tachycardia left anterior fascicular block or incomplete right bundle-branch block. Abnormal ECG
[2024-12-03] MEDS: HEPARIN SODIUM 5,000 UNITS/ML VIAL 5000 UNITS SUB-Q ×2 (10:58→21:33)
[2024-12-03] MEDS: ASPIRIN 81 MG ENTERIC TABLET PO (10:59)
[2024-12-03] MEDS: LOSARTAN POTASSIUM 50 MG TABLET PO (10:59)
[2024-12-03] MEDS: FINASTERIDE 5 MG TABLET PO (10:59)
[2024-12-03] MEDS: buPROPion HCL SR (12 HR) 150 MG TAB PO ×2 (10:59→17:49)
[2024-12-03] MEDS: FENOFIBRATE 160 MG TABLET PO (10:59)
[2024-12-03] MEDS: LINACLOTIDE 145 MCG CAPSULE 290 MCG PO (11:00)
[2024-12-03] MEDS: TAMSULOSIN HCL 0.4 MG CAPSULE PO (11:00)
[2024-12-03] MEDS: MORPHINE SULFATE (*CRX) 30 MG TABCR PO (11:00)
[2024-12-03] MEDS: SERTRALINE HCL 50 MG TABLET PO (11:00)
[2024-12-03] MEDS: ATORVASTATIN 40 MG TABLET 80 MG PO (11:00)
[2024-12-03] MEDS: DOCUSATE SODIUM 100 MG CAPSULE PO (11:01)
[2024-12-03] MEDS: guaiFENesin/DEXTROMETHORPHAN 10 ML UDC PO ×3 (11:04→21:33)
[2024-12-03] MEDS: FUROSEMIDE 40 MG TABLET PO (11:04)
[2024-12-03] MEDS: AZITHROMYCIN 500 MG/NS 250 ML 500 MG/250 ML BAG 250 MG IVPB (11:15)
[2024-12-03] MEDS: VANCOMYCIN 1,500 MG/NS 500 ML 1,500 MG/500 ML BAG 250 MG IVPB (12:30)
--- NOTE | 2024-12-03 12:37 | P.PNIM_ITS ---
Progress Note: A&P Assessment and Plan (1) Pneumonia: Code(s): J18.9 - Pneumonia, unspecified organism Status: Acute Assessment and Plan: Azithromycin, vancomycin and Rocephin DuoNebs Wean oxygen as able Guaifenesin Monitor CBC and culture. (2) Congestive heart failure: Code(s): I50.9 - Heart failure, unspecified Status: Acute Assessment and Plan: Patient appears fluid overloaded on assessment Cardiology consulted Last echo 11/22/2024 EF of 49% Continue home medication. (3) Acute on chronic respiratory failure with hypoxia: Code(s): J96.21 - Acute and chronic respiratory failure with hypoxia Status: Acute Assessment and Plan: History of COPD, Secondary to above Continue with home medication monitor closely. (4) Chronic kidney disease, stage 3: Code(s): N18.30 - Chronic kidney disease, stage 3 unspecified Status: Acute Assessment and Plan: Baseline around 1.4 Continue current treatment monitor closely. (5) Pleural effusion on right: Code(s): J90 - Pleural effusion, not elsewhere classified Status: Acute Assessment and Plan: Stable on chest x-ray (6) BPH (benign prostatic hyperplasia): Code(s): N40.0 - Benign prostatic hyperplasia without lower urinary tract symptoms Status: Acute Assessment and Plan: Stable on current medications, continue current treatment (7) Anemia: Qualifiers: Anemia type: unspecified type Qualified Code(s): D64.9 - Anemia, unspecified Code(s): D64.9 - Anemia, unspecified Status: Acute Assessment and Plan: Appears to be at baseline Daily CBC Transfuse hemoglobin less than 7 (8) HTN (hypertension): Qualifiers: Hypertension type: primary hypertension Qualified Code(s): I10 - Essential (primary) hypertension Code(s): I10 - Essential (primary) hypertension Status: Chronic Assessment and Plan: Restart home antihypertensive Plan 12/03/2024 Patient is gradually improving. Plan is to continue with IV antibiotics. Monitor labs and electrolytes. Repeat chest x-ray on Thursday. Subjective Date/time seen: 12/03/24 12:37 Interval history: Patient was seen during the morning rounds today. Mild shortness of breath. No chest pain. No abdominal pain, no nausea, vomiting Review of Systems Review of Systems: 12 systems were reviewed and are negativ e except for as per HPI. Exam Narrative: General: well appearing, appears stated age. HEENT: normocephalic, atraumatic. Mucous membranes moist. EOMI, PERRLA, bilateral sclera anicteric, no conjunctival injection. Neck supple without JVD, lymphadenopathy, or bruit. Respiratory: Extremely coarse to ascultation bilaterally. Cardiovascular: Regular rate and rhythm, normal S1-S2 upon ascultation. No murmurs, rubs, or clicks. PMI is nondisplaced, capillary refill less than 3 second. Abdomen: Soft, round, no pulsatile masses, nondistended and nontender. No rebound, no guarding. No CVA tenderness, no hepatosplenomegaly. Bowel sounds present to all four quadrants. No high pitch or tinkling sounds, resonant to percussion. Extremities: No cyanosis, clubbing, or edema present. Pulses are palpable 2/2. Active ROM to all four extremities. Neuro: Alert and orientated x 4. PERRLA. Cranial nerves 2-12 intact without focal deficit. Skin: Warm, dry, and intact, without rash, erythema, or lesion. Psych: pleasant, cooperative, normal speech, normal affect, no hallucinations, no dysarthia Objective Data Vital Signs Vital Signs: Vital Signs - 24 hr 12/02/24 14:00 12/02/24 14:30 12/02/24 14:30 Temperature 37.1 C Pulse Rate 63 85 Respiratory Rate 18 20 Blood Pressure 106/47 L Pulse Oximetry 90 97 Oxygen Delivery Nasal Cannula Oxygen Flow Rate 3 Fraction of Inspired Oxygen 32 12/02/24 14:37 12/02/24 18:14 12/02/24 18:20 Temperature Pulse Rate 83 80 79 Respiratory Rate 20 20 20 Blood Pressure Pulse Oximetry Oxygen Delivery Oxygen Flow Rate Fraction of Inspired Oxygen 12/02/24 21:26 12/02/24 23:58 12/03/24 02:12 Temperature 37.2 C 36.6 C Pulse Rate 96 73 Respiratory Rate 17 14 Blood Pressure 146/49 H 113/43 L Pulse Oximetry 96 97 95 Oxygen Delivery Nasal Cannula Oxygen Flow Rate 3 Fraction of Inspired Oxygen 12/03/24 02:12 12/03/24 02:26 12/03/24 04:00 Temperature 36.2 C L Pulse Rate 75 79 78 Respiratory Rate 20 20 13 Blood Pressure 136/52 L Pulse Oximetry 100 Oxygen Delivery Oxygen Flow Rate Fraction of Inspired Oxygen 12/03/24 07:49 12/03/24 07:49 12/03/24 07:57 Temperature Pulse Rate 65 60 Respiratory Rate 20 20 Blood Pressure Pulse Oximetry 98 Oxygen Delivery Nasal Cannula Oxygen Flow Rate 3 Fraction of Inspired Oxygen 12/03/24 08:00 Temperature 37.1 C Pulse Rate 73 Respiratory Rate 18 Blood Pressure 124/50 L Pulse Oximetry 98 Oxygen Delivery Oxygen Flow Rate Fraction of Inspired Oxygen Intake/Output Intake/Output: Intake & Output 11/30/24 12/01/24 12/02/24 12/03/24 23:59 23:59 23:59 23:59 Intake Total 530 920 Output Total 450 1700 Balance 80 -780 Meds/Results Medications: Active Medications Generic Name Dose Route Start Last Admin Trade Name Freq PRN Reason Stop Dose Admin Acetaminophen 650 mg 12/02/24 09:59 Acetaminophen 325 Mg Tablet PO Q4H PRN Mild Pain (1-3) or Fever Acetaminophen 1,000 mg 12/02/24 20:42 Acetaminophen 500 Mg Tablet PO Q6H PRN PAIN RATED 1-3 Hydrocodone Bitart/Acetaminophen 1 tab 12/02/24 09:59 12/02/24 20:06 Hydrocodone/Acetaminophen (*Crx) 5-325 Mg Tablet PO 1 tab Q4H PRN Administration Pain Rated 4-6 Hydrocodone Bitart/Acetaminophen 1 tab 12/02/24 12:58 Hydrocodone/Acetaminophen (*Crx) 10-325 Mg Tablet PO Q4H PRN Pain Rated 7-10 Albuterol/Ipratropium 3 ml 12/02/24 14:00 12/03/24 07:46 Ipratropium 0.5 Mg/Albuterol Sulfate 2.5 Mg Ampul.Neb 3 Ml INHALATION 3 ml Q6HRT GIOVANNY Administration Albuterol/Ipratropium 3 ml 12/02/24 18:00 Ipratropium 0.5 Mg/Albuterol Sulfate 2.5 Mg Ampul.Neb 3 Ml INHALATION Q6HRT PRN Shortness Of Breath Or Wheezing Aspirin 81 mg 12/03/24 09:00 12/03/24 10:59 Aspirin 81 Mg Enteric Tablet PO 81 mg DAILY GIOVANNY Administration Atorvastatin Calcium 80 mg 12/03/24 09:00 12/03/24 11:00 Atorvastatin 40 Mg Tablet PO 80 mg DAILY GIOVANNY Administration Baclofen 10 mg 12/02/24 12:53 12/02/24 13:13 Baclofen 10 Mg Tablet PO 10 mg Q12HR PRN Administration muscle spasms Bupropion HCl 150 mg 12/02/24 17:00 12/03/24 10:59 Bupropion Hcl Sr (12 Hr) 150 Mg Tab PO 150 mg BID GIOVANNY Administration Docusate Sodium 100 mg 12/03/24 09:00 12/03/24 11:01 Docusate Sodium 100 Mg Capsule PO 100 mg DAILY GIOVANNY Administration Fenofibrate 160 mg 12/03/24 09:00 12/03/24 10:59 Fenofibrate 160 Mg Tablet PO 160 mg DAILY GIOVANNY Administration Finasteride 5 mg 12/03/24 09:00 12/03/24 10:59 Finasteride 5 Mg Tablet PO 5 mg DAILY GIOVANNY Administration Fluticasone/Umeclidinium/Vilanterol 1 puff 12/03/24 08:00 12/03/24 07:46 Fluticasone/Umeclidin/Vilanter 100-62.5-25 Mcg Ellipta INHALATION 1 puff DAILYRT GIOVANNY Administration Furosemide 40 mg 12/03/24 09:00 12/03/24 11:04 Furosemide 40 Mg Tablet PO 40 mg DAILY GIOVANNY Administration Furosemide 40 mg 12/04/24 09:00 Furosemide 40 Mg Tablet PO DAILY GIOVANNY Guaifenesin 1,200 mg 12/02/24 18:46 Guaifenesin 12 Hr 600 Mg Tabcr PO BID PRN cough Guaifenesin/Dextromethorphan 10 ml 12/03/24 01:00 12/03/24 11:04 Guaifenesin/Dextromethorphan 10 Ml Udc PO 10 ml Q4HR GIOVANNY Administration Heparin Sodium (Porcine) 5,000 units 12/03/24 09:00 12/03/24 10:58 Heparin Sodium 5,000 Units/Ml Vial SUB-Q 5,000 units Q12HR GIOVANNY Administration Ceftriaxone Sodium 1 gm in 50 mls @ 100 mls/hr 12/03/24 09:00 12/03/24 11:00 Rocephin 1 Gm/Ns 50 Ml IVPB 100 mls/hr Q24H GIOVANNY Administration Azithromycin 500 mg in 250 mls @ 250 mls/hr 12/03/24 09:00 12/03/24 11:15 Zithromax IVPB 250 mls/hr Q24H GIOVANNY Administration Vancomycin HCl 1,500 mg in 500 mls @ 250 mls/hr 12/03/24 11:00 Vancomycin 1,500 Mg/Ns 500 Ml IVPB Q24H GIOVANNY Linaclotide 290 mcg 12/03/24 09:00 12/03/24 11:00 Linaclotide 145 Mcg Capsule PO 290 mcg DAILY GIOVANNY Administration Lorazepam 0.5 mg 12/02/24 12:56 12/02/24 17:24 Lorazepam (*Crx) 0.5 Mg Tablet PO 0.5 mg BID PRN Administration anxiety Losartan Potassium 50 mg 12/03/24 09:00 12/03/24 10:59 Losartan Potassium 50 Mg Tablet PO 50 mg DAILY GIOVANNY Administration Metoprolol Succinate 50 mg 12/02/24 21:00 12/02/24 22:27 Metoprolol Succinate Ext Rel 50 Mg Tabcr PO 50 mg HS GIOVANNY Administration Miscellaneous Information 1 each 12/03/24 00:01 Med Rec Order Clarification XX 01/02/25 00:00 [facility] Morphine Sulfate 30 mg 12/03/24 09:00 12/03/24 11:00 Morphine Sulfate (*Crx) 30 Mg Tabcr PO 30 mg QAM GIOVANNY Administration Non-Formulary Medication 0.3 mg 12/02/24 18:46 Nitroglycerin SUBLINGUAL Q5M PRN Chest Pain Polyethylene Glycol 17 gm 12/02/24 20:42 Polyethylene Glycol 3350 17 Gm Powd.Pack PO QAM PRN Constipation Promethazine HCl 12.5 mg 12/02/24 09:59 Promethazine Hcl 25 Mg/Ml Ampul IV PUSH Q6H PRN Nausea Sertraline HCl 50 mg 12/03/24 09:00 12/03/24 11:00 Sertraline Hcl 50 Mg Tablet PO 50 mg DAILY GIOVANNY Administration Tamsulosin HCl 0.4 mg 12/03/24 09:00 12/03/24 11:00 Tamsulosin Hcl 0.4 Mg Capsule PO 0.4 mg DAILY GIOVANNY Administration Trazodone HCl 100 mg 12/02/24 21:00 12/02/24 22:27 Trazodone Hcl 50 Mg Tablet PO 100 mg HS GIOVANNY Administration Radiology Results: ITS Impressions Chest X-Ray 12/02/24 09:33 IMPRESSION: 1. Airspace opacities in the mid and lower lung zones with worsening at right lung base, consistent with pneumonia and chronic lung disease. 2. Stable small loculated right pleural effusion. Labs Labs: Laboratory Results - last 24 hr 12/03/24 07:03 WBC 9.7 RBC 2.68 L Hgb 8.2 L Hct 26.8 L MCV 100.0 MCH 30.6 MCHC 30.6 L RDW 15.4 H Plt Count 271 MPV 10.2 Immature Gran % (Auto) 0.6 H Neut % (Auto) 81.9 H Lymph % (Auto) 9.3 L [place] % (Auto) 7.7 Eos % (Auto) 0.4 Baso % (Auto) 0.1 L Lymph # (Auto) 0.90 [place] # (Auto) 0.7 H Eos # (Auto) 0.0 Baso # (Auto) 0.0 Abs Immat Gran (auto) 0.06 H Absolute Neuts (auto) 7.9 H Absolute Nucleated RBC 0.000 Nucleated RBC % 0.0 Sodium 138 Potassium 3.7 Chloride 104 Carbon Dioxide 31 H Anion Gap 3 L BUN 25 H D Creatinine 1.21 Estim Creat Clear Calc 46 Estimated GFR 58 L Glucose 100 Calcium 8.5 Quality VTE Prophylaxis VTE prophylaxis: mechanical ordered
[2024-12-03] MEDS: POLYSACCHARIDE IRON COMPLEX 150 MG CAPSULE PO (17:49)
[2024-12-03] MEDS: traZODone HCL 50 MG TABLET 100 MG PO (21:32)
[2024-12-03] MEDS: METOPROLOL SUCCINATE EXT REL 50 MG TABCR PO (21:32)
[2024-12-04] VITALS (14 sets, daily range): BP systolic 105–142; BP diastolic 40–58; PULSE 58–79; RESP 16–18; TEMP 36.3–36.9; O2SAT 94–98
[2024-12-04] MEDS: LORazepam (*CRX) 0.5 MG TABLET PO ×2 (04:46→17:39)
[2024-12-04] MEDS: guaiFENesin/DEXTROMETHORPHAN 10 ML UDC PO ×5 (04:48→21:36)
--- NOTE | 2024-12-04 05:55 | PCRCNOTE ---
Window of time for administration has passed. See next scheduled administration.
[2024-12-04] MEDS: IPRATROPIUM 0.5 MG/ALBUTEROL SULFATE 2.5 MG AMPUL.NEB 3 ML INHALATION ×3 (07:19→19:47)
[2024-12-04] MEDS: FLUTICASONE/UMECLIDIN/VILANTER 100-62.5-25 MCG ELLIPTA 1 PUFF INHALATION (07:19)
[2024-12-04] MEDS: AZITHROMYCIN 500 MG/NS 250 ML 500 MG/250 ML BAG 250 MG IVPB (08:56)
[2024-12-04] MEDS: buPROPion HCL SR (12 HR) 150 MG TAB PO ×2 (08:56→17:36)
[2024-12-04] MEDS: FENOFIBRATE 160 MG TABLET PO (08:56)
[2024-12-04] MEDS: PANTOPRAZOLE 40 MG TABLET PO (08:56)
[2024-12-04] MEDS: ATORVASTATIN 40 MG TABLET 80 MG PO (08:56)
[2024-12-04] MEDS: TAMSULOSIN HCL 0.4 MG CAPSULE PO (08:56)
[2024-12-04] MEDS: HEPARIN SODIUM 5,000 UNITS/ML VIAL 5000 UNITS SUB-Q ×2 (08:56→21:35)
[2024-12-04] MEDS: LINACLOTIDE 145 MCG CAPSULE 290 MCG PO (08:56)
[2024-12-04] MEDS: DOCUSATE SODIUM 100 MG CAPSULE PO (08:56)
[2024-12-04] MEDS: LOSARTAN POTASSIUM 50 MG TABLET PO (08:57)
[2024-12-04] MEDS: MORPHINE SULFATE (*CRX) 30 MG TABCR PO (08:57)
[2024-12-04] MEDS: FUROSEMIDE 40 MG TABLET PO (08:57)
[2024-12-04] MEDS: FINASTERIDE 5 MG TABLET PO (08:57)
[2024-12-04] MEDS: SERTRALINE HCL 50 MG TABLET PO (08:57)
[2024-12-04] MEDS: ASPIRIN 81 MG ENTERIC TABLET PO (08:57)
[2024-12-04] MEDS: POLYSACCHARIDE IRON COMPLEX 150 MG CAPSULE PO ×2 (08:57→17:36)
[2024-12-04 10:14] LABS: Hematocrit 28.7 % (42.0-52.0); Hemoglobin 8.9 g/dL (14.0-18.0); Mean Corpuscular Hemoglobin 30.9 pg (26-34); Mean Corpuscular Volume 99.7 fl (80-100); Mean Platelet Volume 10.1 fl (7.4-10.4); Platelet Count Result 277 k/mm3 (150-375); Red Blood Count 2.88 M/mm3 (4.6-6.20); Red Cell Distribution Width 15.2 % (11.5-14.5); White Blood Count 6.3 K/mm3 (4.5-10.0)
--- NOTE | 2024-12-04 10:18 | P.PNIM_ITS ---
Progress Note: A&P Assessment and Plan (1) Pneumonia: Code(s): J18.9 - Pneumonia, unspecified organism Status: Acute Assessment and Plan: Azithromycin, vancomycin and Rocephin DuoNebs Wean oxygen as able Guaifenesin Monitor CBC and culture. (2) Congestive heart failure: Code(s): I50.9 - Heart failure, unspecified Status: Acute Assessment and Plan: Patient appears fluid overloaded on assessment Cardiology consulted Last echo 11/22/2024 EF of 49% Continue home medication. (3) Acute on chronic respiratory failure with hypoxia: Code(s): J96.21 - Acute and chronic respiratory failure with hypoxia Status: Acute Assessment and Plan: History of COPD, Secondary to above Continue with home medication monitor closely. (4) Chronic kidney disease, stage 3: Code(s): N18.30 - Chronic kidney disease, stage 3 unspecified Status: Acute Assessment and Plan: Baseline around 1.4 Continue current treatment monitor closely. (5) Pleural effusion on right: Code(s): J90 - Pleural effusion, not elsewhere classified Status: Acute Assessment and Plan: Stable on chest x-ray (6) BPH (benign prostatic hyperplasia): Code(s): N40.0 - Benign prostatic hyperplasia without lower urinary tract symptoms Status: Acute Assessment and Plan: Stable on current medications, continue current treatment (7) Anemia: Qualifiers: Anemia type: unspecified type Qualified Code(s): D64.9 - Anemia, unspecified Code(s): D64.9 - Anemia, unspecified Status: Acute Assessment and Plan: Appears to be at baseline Daily CBC Transfuse hemoglobin less than 7 (8) HTN (hypertension): Qualifiers: Hypertension type: primary hypertension Qualified Code(s): I10 - Essential (primary) hypertension Code(s): I10 - Essential (primary) hypertension Status: Chronic Assessment and Plan: Restart home antihypertensive Plan 12/04/2024 Patient is gradually improving. Plan is to continue with IV antibiotics. Monitor labs and electrolytes. Repeat chest x-ray on Thursday. Subjective Date/time seen: 12/04/24 10:18 Interval history: Patient was seen during the morning rounds today. No new overnight complaints. Decreased shortness of breath. No chest pain. No abdominal pain, no nausea, vomiting Review of Systems Review of Systems: 12 systems were reviewed and are negativ e except for as per HPI. Exam Narrative: General: well appearing, appears stated age. HEENT: normocephalic, atraumatic. Mucous membranes moist. EOMI, PERRLA, bilateral sclera anicteric, no conjunctival injection. Neck supple without JVD, lymphadenopathy, or bruit. Respiratory: Extremely coarse to ascultation bilaterally. Cardiovascular: Regular rate and rhythm, normal S1-S2 upon ascultation. No murmurs, rubs, or clicks. PMI is nondisplaced, capillary refill less than 3 second. Abdomen: Soft, round, no pulsatile masses, nondistended and nontender. No rebound, no guarding. No CVA tenderness, no hepatosplenomegaly. Bowel sounds present to all four quadrants. No high pitch or tinkling sounds, resonant to percussion. Extremities: No cyanosis, clubbing, or edema present. Pulses are palpable 2/2. Active ROM to all four extremities. Neuro: Alert and orientated x 4. PERRLA. Cranial nerves 2-12 intact without focal deficit. Skin: Warm, dry, and intact, without rash, erythema, or lesion. Psych: pleasant, cooperative, normal speech, normal affect, no hallucinations, no dysarthia Objective Data Vital Signs Vital Signs: Vital Signs - 24 hr 12/03/24 11:00 12/03/24 12:00 12/03/24 13:32 Temperature 37.1 C Pulse Rate 72 70 Respiratory Rate 18 20 Blood Pressure 110/44 L Pulse Oximetry 96 96 Oxygen Delivery Nasal Cannula Oxygen Flow Rate 3 12/03/24 13:41 12/03/24 16:00 12/03/24 20:53 Temperature 37.1 C Pulse Rate 69 70 61 Respiratory Rate 20 18 20 Blood Pressure 115/55 L Pulse Oximetry 97 Oxygen Delivery Oxygen Flow Rate 12/03/24 20:58 12/03/24 21:03 12/03/24 21:30 Temperature 36.5 C Pulse Rate 61 63 62 Respiratory Rate 20 16 Blood Pressure 111/43 L Pulse Oximetry 97 97 Oxygen Delivery Nasal Cannula Oxygen Flow Rate 3 12/03/24 21:32 12/04/24 00:23 12/04/24 06:15 Temperature 36.5 C 36.3 C L Pulse Rate 62 79 71 Respiratory Rate 18 16 Blood Pressure 105/40 L 136/52 L Pulse Oximetry 97 94 Oxygen Delivery Oxygen Flow Rate 12/04/24 07:18 12/04/24 07:18 12/04/24 07:28 Temperature Pulse Rate 59 L 59 L 62 Respiratory Rate 18 18 18 Blood Pressure Pulse Oximetry 95 Oxygen Delivery Nasal Cannula Oxygen Flow Rate 2 12/04/24 08:00 Temperature 36.8 C Pulse Rate 72 Respiratory Rate 18 Blood Pressure 142/58 H Pulse Oximetry 97 Oxygen Delivery Oxygen Flow Rate Intake/Output Intake/Output: Intake & Output 12/01/24 12/02/24 12/03/24 12/04/24 23:59 23:59 23:59 23:59 Intake Total 530 2240 990 Output Total 450 2450 1240 Balance 80 -210 -250 Meds/Results Medications: Active Medications Generic Name Dose Route Start Last Admin Trade Name Freq PRN Reason Stop Dose Admin Acetaminophen 650 mg 12/02/24 09:59 Acetaminophen 325 Mg Tablet PO Q4H PRN Mild Pain (1-3) or Fever Acetaminophen 1,000 mg 12/02/24 20:42 Acetaminophen 500 Mg Tablet PO Q6H PRN PAIN RATED 1-3 Hydrocodone Bitart/Acetaminophen 1 tab 12/02/24 09:59 12/02/24 20:06 Hydrocodone/Acetaminophen (*Crx) 5-325 Mg Tablet PO 1 tab Q4H PRN Administration Pain Rated 4-6 Hydrocodone Bitart/Acetaminophen 1 tab 12/02/24 12:58 Hydrocodone/Acetaminophen (*Crx) 10-325 Mg Tablet PO Q4H PRN Pain Rated 7-10 Albuterol/Ipratropium 3 ml 12/02/24 14:00 12/04/24 07:19 Ipratropium 0.5 Mg/Albuterol Sulfate 2.5 Mg Ampul.Neb 3 Ml INHALATION 3 ml Q6HRT [facility] Administration Albuterol/Ipratropium 3 ml 12/02/24 18:00 Ipratropium 0.5 Mg/Albuterol Sulfate 2.5 Mg Ampul.Neb 3 Ml INHALATION Q6HRT PRN Shortness Of Breath Or Wheezing Aspirin 81 mg 12/03/24 09:00 12/04/24 08:57 Aspirin 81 Mg Enteric Tablet PO 81 mg DAILY [facility] Administration Atorvastatin Calcium 80 mg 12/03/24 09:00 12/04/24 08:56 Atorvastatin 40 Mg Tablet PO 80 mg DAILY [facility] Administration Baclofen 10 mg 12/02/24 12:53 12/02/24 13:13 Baclofen 10 Mg Tablet PO 10 mg Q12HR PRN Administration muscle spasms Bupropion HCl 150 mg 12/02/24 17:00 12/04/24 08:56 Bupropion Hcl Sr (12 Hr) 150 Mg Tab PO 150 mg BID [facility] Administration Docusate Sodium 100 mg 12/03/24 09:00 12/04/24 08:56 Docusate Sodium 100 Mg Capsule PO 100 mg DAILY [facility] Administration Fenofibrate 160 mg 12/03/24 09:00 12/04/24 08:56 Fenofibrate 160 Mg Tablet PO 160 mg DAILY [facility] Administration Finasteride 5 mg 12/03/24 09:00 12/04/24 08:57 Finasteride 5 Mg Tablet PO 5 mg DAILY [facility] Administration Fluticasone/Umeclidinium/Vilanterol 1 puff 12/03/24 08:00 12/04/24 07:19 Fluticasone/Umeclidin/Vilanter 100-62.5-25 Mcg Ellipta INHALATION 1 puff DAILYRT [facility] Administration Furosemide 40 mg 12/04/24 09:00 12/04/24 08:57 Furosemide 40 Mg Tablet PO 40 mg DAILY [facility] Administration Guaifenesin 1,200 mg 12/02/24 18:46 Guaifenesin 12 Hr 600 Mg Tabcr PO BID PRN cough Guaifenesin/Dextromethorphan 10 ml 12/03/24 01:00 12/04/24 08:57 Guaifenesin/Dextromethorphan 10 Ml Udc PO 10 ml Q4HR [facility] Administration Heparin Sodium (Porcine) 5,000 units 12/03/24 09:00 12/04/24 08:56 Heparin Sodium 5,000 Units/Ml Vial SUB-Q 5,000 units Q12HR [facility] Administration Ceftriaxone Sodium 1 gm in 50 mls @ 100 mls/hr 12/03/24 09:00 12/04/24 08:55 Rocephin 1 Gm/Ns 50 Ml IVPB 100 mls/hr Q24H [facility] Administration Azithromycin 500 mg in 250 mls @ 250 mls/hr 12/03/24 09:00 12/04/24 08:56 Zithromax IVPB 250 mls/hr Q24H [facility] Administration Vancomycin HCl 1,500 mg in 500 mls @ 250 mls/hr 12/03/24 11:00 12/03/24 14:30 Vancomycin 1,500 Mg/Ns 500 Ml IVPB Infused Q24H [facility] Infusion Linaclotide 290 mcg 12/03/24 09:00 12/04/24 08:56 Linaclotide 145 Mcg Capsule PO 290 mcg DAILY [facility] Administration Lorazepam 0.5 mg 12/02/24 12:56 12/04/24 04:46 Lorazepam (*Crx) 0.5 Mg Tablet PO 0.5 mg BID PRN Administration anxiety Losartan Potassium 50 mg 12/03/24 09:00 12/04/24 08:57 Losartan Potassium 50 Mg Tablet PO 50 mg DAILY [facility] Administration Metoprolol Succinate 50 mg 12/02/24 21:00 12/03/24 21:32 Metoprolol Succinate Ext Rel 50 Mg Tabcr PO 50 mg HS [facility] Administration Miscellaneous Information 1 each 12/03/24 00:01 Med Rec Order Clarification XX 01/02/25 00:00 CLARIFY [facility] Morphine Sulfate 30 mg 12/03/24 09:00 12/04/24 08:57 Morphine Sulfate (*Crx) 30 Mg Tabcr PO 30 mg QAM [facility] Administration Non-Formulary Medication 0.3 mg 12/02/24 18:46 Nitroglycerin SUBLINGUAL Q5M PRN Chest Pain Pantoprazole Sodium 40 mg 12/04/24 09:00 12/04/24 08:56 Pantoprazole 40 Mg Tablet PO 40 mg QAM [facility] Administration Polyethylene Glycol 17 gm 12/02/24 20:42 Polyethylene Glycol 3350 17 Gm Powd.Pack PO QAM PRN Constipation Polysaccharide Iron Complex 150 mg 12/03/24 17:00 12/04/24 08:57 Polysaccharide Iron Complex 150 Mg Capsule PO 150 mg BIDWM [facility] Administration Promethazine HCl 12.5 mg 12/02/24 09:59 Promethazine Hcl 25 Mg/Ml Ampul IV PUSH Q6H PRN Nausea Sertraline HCl 50 mg 12/03/24 09:00 12/04/24 08:57 Sertraline Hcl 50 Mg Tablet PO 50 mg DAILY [facility] Administration Tamsulosin HCl 0.4 mg 12/03/24 09:00 12/04/24 08:56 Tamsulosin Hcl 0.4 Mg Capsule PO 0.4 mg DAILY [facility] Administration Trazodone HCl 100 mg 12/02/24 21:00 12/03/24 21:32 Trazodone Hcl 50 Mg Tablet PO 100 mg HS [facility] Administration Radiology Results: ITS Impressions Chest X-Ray 12/02/24 09:33 IMPRESSION: 1. Airspace opacities in the mid and lower lung zones with worsening at right lung base, consistent with pneumonia and chronic lung disease. 2. Stable small loculated right pleural effusion. Quality VTE Prophylaxis VTE prophylaxis: mechanical ordered
[2024-12-04 10:25] LABS: Alanine Aminotransferase 16 U/L (6-50); Albumin Level 3.3 g/dL (3.5-5.1); Alkaline Phosphatase 71 U/L (38-126); Anion Gap 3 mmol/L (4-12); Aspartate Amino Transferase 27 U/L (17-59); Bilirubin,Total 0.4 mg/dL (0.2-1.3); Blood Urea Nitrogen 18 mg/dL (9-20); Calcium 8.9 mg/dL (8.4-10.2); Carbon Dioxide 30 mmol/L (22-30); Chloride 104 mmol/L (98-107); Estimated CRCL calculation 51 ml/min; Estimated Glomerular Filt Rate > 60; Glucose 94 mg/dL (65-110); Potassium 3.5 mmol/L (3.4-5.0); Sodium 137 mmol/L (137-145)
[2024-12-04 10:43] LABS: Vancomycin Trough 13.8 ug/mL (10.0-20.0)
[2024-12-04] MEDS: VANCOMYCIN 1,750 MG/NS 500 ML 1,750 MG/500 ML BAG 250 MG IVPB (12:08)
--- NOTE | 2024-12-04 15:27 | P.PNCA_ITS ---
Progress Note: A&P Assessment and Plan (1) Pneumonia: Code(s): J18.9 - Pneumonia, unspecified organism Status: Acute Assessment and Plan: Continue antibiotics (2) Congestive heart failure: Code(s): I50.9 - Heart failure, unspecified Status: Acute Assessment and Plan: At this point appears euvolemic Back on oral dose of furosemide. Last echo 11/22/2024 EF of 49% Continue home medication. (3) Acute on chronic respiratory failure with hypoxia: Code(s): J96.21 - Acute and chronic respiratory failure with hypoxia Status: Acute Assessment and Plan: History of COPD, Secondary to above Continue with home medication monitor closely. (4) Chronic kidney disease, stage 3: Code(s): N18.30 - Chronic kidney disease, stage 3 unspecified Status: Acute Assessment and Plan: Creatinine today 1.09 (5) Pleural effusion on right: Code(s): J90 - Pleural effusion, not elsewhere classified Status: Acute Assessment and Plan: Stable on chest x-ray (6) BPH (benign prostatic hyperplasia): Code(s): N40.0 - Benign prostatic hyperplasia without lower urinary tract symptoms Status: Acute Assessment and Plan: Stable on current medications, continue current treatment (7) Anemia: Qualifiers: Anemia type: unspecified type Qualified Code(s): D64.9 - Anemia, unspecified Code(s): D64.9 - Anemia, unspecified Status: Acute Assessment and Plan: Appears to be at baseline Daily CBC Transfuse hemoglobin less than 7 (8) HTN (hypertension): Qualifiers: Hypertension type: primary hypertension Qualified Code(s): I10 - Essential (primary) hypertension Code(s): I10 - Essential (primary) hypertension Status: Chronic Assessment and Plan: Restart home antihypertensive Plan 12/03/2024 Patient is gradually improving. Plan is to continue with IV antibiotics. Monitor labs and electrolytes. Repeat chest x-ray on Thursday. Subjective Date/time seen: 12/04/24 15:27 Interval history: 79-year-old with pneumonia and mild CHF Date of service 12/04/2024: Feeling better. Less short of breath. No chest pain Review of Systems Cardiovascular: Comments: No chest pain Respiratory: Comments: Less short of breath. Still with a cough Exam Narrative: Appears stated age Const: General: comfortable and no acute distress HENMT: Face/Nose/Sinus: Normal nares present Eyes: Sclera: sclerae normal Neck: Neck: supple and no JVD Resp: Effort & Inspection: normal respiratory effort Cardio: Rate: regular rate GI: Inspection: non-distended GI Palp: Yes Soft to palpation Skin: General skin exam: normal color Neuro: Speech: normal speech Extrem: General: normal to inspection Psych: Mental Status: mental status grossly normal Objective Data Vital Signs Vital Signs: Vital Signs - 24 hr 12/03/24 16:00 12/03/24 20:53 12/03/24 20:58 Temperature 37.1 C Pulse Rate 70 61 61 Respiratory Rate 18 20 Blood Pressure 115/55 L Pulse Oximetry 97 97 Oxygen Delivery Nasal Cannula Oxygen Flow Rate 3 12/03/24 21:03 12/03/24 21:30 12/03/24 21:32 Temperature 36.5 C Pulse Rate 63 62 62 Respiratory Rate 20 16 Blood Pressure 111/43 L Pulse Oximetry 97 Oxygen Delivery Oxygen Flow Rate 12/04/24 00:23 12/04/24 06:15 12/04/24 07:18 Temperature 36.5 C 36.3 C L Pulse Rate 79 71 59 L Respiratory Rate 18 16 18 Blood Pressure 105/40 L 136/52 L Pulse Oximetry 97 94 95 Oxygen Delivery Nasal Cannula Oxygen Flow Rate 2 12/04/24 07:18 12/04/24 07:28 12/04/24 08:00 Temperature 36.8 C Pulse Rate 59 L 62 72 Respiratory Rate 18 18 18 Blood Pressure 142/58 H Pulse Oximetry 97 Oxygen Delivery Oxygen Flow Rate 12/04/24 08:00 12/04/24 12:00 12/04/24 12:55 Temperature 36.7 C Pulse Rate 63 68 Respiratory Rate 18 18 Blood Pressure 123/40 L Pulse Oximetry 96 97 Oxygen Delivery Nasal Cannula Oxygen Flow Rate 2 12/04/24 13:05 Temperature Pulse Rate 69 Respiratory Rate 18 Blood Pressure Pulse Oximetry Oxygen Delivery Oxygen Flow Rate Intake/Output Intake/Output: Intake & Output 12/01/24 12/02/24 12/03/24 12/04/24 23:59 23:59 23:59 23:59 Intake Total 530 2240 1915 Output Total 450 2450 1240 Balance 80 -210 675 Meds/Results Medications: Active Medications Generic Name Dose Route Start Last Admin Trade Name Freq PRN Reason Stop Dose Admin Acetaminophen 650 mg 12/02/24 09:59 Acetaminophen 325 Mg Tablet PO Q4H PRN Mild Pain (1-3) or Fever Acetaminophen 1,000 mg 12/02/24 20:42 Acetaminophen 500 Mg Tablet PO Q6H PRN PAIN RATED 1-3 Hydrocodone Bitart/Acetaminophen 1 tab 12/02/24 09:59 12/02/24 20:06 Hydrocodone/Acetaminophen (*Crx) 5-325 Mg Tablet PO 1 tab Q4H PRN Administration Pain Rated 4-6 Hydrocodone Bitart/Acetaminophen 1 tab 12/02/24 12:58 Hydrocodone/Acetaminophen (*Crx) 10-325 Mg Tablet PO Q4H PRN Pain Rated 7-10 Albuterol/Ipratropium 3 ml 12/02/24 14:00 12/04/24 12:55 Ipratropium 0.5 Mg/Albuterol Sulfate 2.5 Mg Ampul.Neb 3 Ml INHALATION 3 ml Q6HRT [facility]NY Administration Albuterol/Ipratropium 3 ml 12/02/24 18:00 Ipratropium 0.5 Mg/Albuterol Sulfate 2.5 Mg Ampul.Neb 3 Ml INHALATION Q6HRT PRN Shortness Of Breath Or Wheezing Aspirin 81 mg 12/03/24 09:00 12/04/24 08:57 Aspirin 81 Mg Enteric Tablet PO 81 mg DAILY [facility] Administration Atorvastatin Calcium 80 mg 12/03/24 09:00 12/04/24 08:56 Atorvastatin 40 Mg Tablet PO 80 mg DAILY [facility] Administration Baclofen 10 mg 12/02/24 12:53 12/02/24 13:13 Baclofen 10 Mg Tablet PO 10 mg Q12HR PRN Administration muscle spasms Bupropion HCl 150 mg 12/02/24 17:00 12/04/24 08:56 Bupropion Hcl Sr (12 Hr) 150 Mg Tab PO 150 mg BID [facility] Administration Docusate Sodium 100 mg 12/03/24 09:00 12/04/24 08:56 Docusate Sodium 100 Mg Capsule PO 100 mg DAILY [facility] Administration Fenofibrate 160 mg 12/03/24 09:00 12/04/24 08:56 Fenofibrate 160 Mg Tablet PO 160 mg DAILY [facility] Administration Finasteride 5 mg 12/03/24 09:00 12/04/24 08:57 Finasteride 5 Mg Tablet PO 5 mg DAILY [facility] Administration Fluticasone/Umeclidinium/Vilanterol 1 puff 12/03/24 08:00 12/04/24 07:19 Fluticasone/Umeclidin/Vilanter 100-62.5-25 Mcg Ellipta INHALATION 1 puff DAILYRT [facility] Administration Furosemide 40 mg 12/04/24 09:00 12/04/24 08:57 Furosemide 40 Mg Tablet PO 40 mg DAILY [facility] Administration Guaifenesin 1,200 mg 12/02/24 18:46 Guaifenesin 12 Hr 600 Mg Tabcr PO BID PRN cough Guaifenesin/Dextromethorphan 10 ml 12/03/24 01:00 12/04/24 12:08 Guaifenesin/Dextromethorphan 10 Ml Udc PO 10 ml Q4HR [facility] Administration Heparin Sodium (Porcine) 5,000 units 12/03/24 09:00 12/04/24 08:56 Heparin Sodium 5,000 Units/Ml Vial SUB-Q 5,000 units Q12HR [facility] Administration Ceftriaxone Sodium 1 gm in 50 mls @ 100 mls/hr 12/03/24 09:00 12/04/24 09:25 Rocephin 1 Gm/Ns 50 Ml IVPB Infused Q24H [facility] Infusion Azithromycin 500 mg in 250 mls @ 250 mls/hr 12/03/24 09:00 12/04/24 09:56 Zithromax IVPB Infused Q24H [facility] Infusion Vancomycin HCl 1,750 mg in 500 mls @ 250 mls/hr 12/04/24 12:00 12/04/24 14:08 Vancomycin 1,750 Mg/Ns 500 Ml IVPB Infused Q24H [facility] Infusion Linaclotide 290 mcg 12/03/24 09:00 12/04/24 08:56 Linaclotide 145 Mcg Capsule PO 290 mcg DAILY [facility] Administration Lorazepam 0.5 mg 12/02/24 12:56 12/04/24 04:46 Lorazepam (*Crx) 0.5 Mg Tablet PO 0.5 mg BID PRN Administration anxiety Losartan Potassium 50 mg 12/03/24 09:00 12/04/24 08:57 Losartan Potassium 50 Mg Tablet PO 50 mg DAILY [facility] Administration Metoprolol Succinate 50 mg 12/02/24 21:00 12/03/24 21:32 Metoprolol Succinate Ext Rel 50 Mg Tabcr PO 50 mg HS [facility] Administration Miscellaneous Information 1 each 12/03/24 00:01 Med Rec Order Clarification XX 01/02/25 00:00 CLARIFY [facility] Morphine Sulfate 30 mg 12/03/24 09:00 12/04/24 08:57 Morphine Sulfate (*Crx) 30 Mg Tabcr PO 30 mg QAM [facility] Administration Non-Formulary Medication 0.3 mg 12/02/24 18:46 Nitroglycerin SUBLINGUAL Q5M PRN Chest Pain Pantoprazole Sodium 40 mg 12/04/24 09:00 12/04/24 08:56 Pantoprazole 40 Mg Tablet PO 40 mg QAM [facility] Administration Polyethylene Glycol 17 gm 12/02/24 20:42 Polyethylene Glycol 3350 17 Gm Powd.Pack PO QAM PRN Constipation Polysaccharide Iron Complex 150 mg 12/03/24 17:00 12/04/24 08:57 Polysaccharide Iron Complex 150 Mg Capsule PO 150 mg BIDWM [facility] Administration Promethazine HCl 12.5 mg 12/02/24 09:59 Promethazine Hcl 25 Mg/Ml Ampul IV PUSH Q6H PRN Nausea Sertraline HCl 50 mg 12/03/24 09:00 12/04/24 08:57 Sertraline Hcl 50 Mg Tablet PO 50 mg DAILY [facility] Administration Tamsulosin HCl 0.4 mg 12/03/24 09:00 12/04/24 08:56 Tamsulosin Hcl 0.4 Mg Capsule PO 0.4 mg DAILY [facility] Administration Trazodone HCl 100 mg 12/02/24 21:00 12/03/24 21:32 Trazodone Hcl 50 Mg Tablet PO 100 mg HS [facility] Administration Radiology Results: ITS Impressions Chest X-Ray 12/02/24 09:33 IMPRESSION: 1. Airspace opacities in the mid and lower lung zones with worsening at right lung base, consistent with pneumonia and chronic lung disease. 2. Stable small loculated right pleural effusion. Labs Labs: Laboratory Results - last 24 hr 12/04/24 10:01 WBC 6.3 RBC 2.88 L Hgb 8.9 L Hct 28.7 L MCV 99.7 MCH 30.9 MCHC 31.0 L RDW 15.2 H Plt Count 277 MPV 10.1 Sodium 137 Potassium 3.5 Chloride 104 Carbon Dioxide 30 Anion Gap 3 L BUN 18 Creatinine 1.09 Estim Creat Clear Calc 51 Estimated GFR > 60 Glucose 94 Calcium 8.9 Total Bilirubin 0.4 AST 27 ALT 16 Alkaline Phosphatase 71 Total Protein 6.0 L Albumin 3.3 L Vancomycin Trough 13.8
[2024-12-04] MEDS: METOPROLOL SUCCINATE EXT REL 50 MG TABCR PO (21:35)
[2024-12-04] MEDS: traZODone HCL 50 MG TABLET 100 MG PO (21:36)
[2024-12-05] VITALS (13 sets, daily range): BP systolic 121–142; BP diastolic 48–78; PULSE 60–77; RESP 16–20; TEMP 36.2–37; O2SAT 92–98
[2024-12-05 07:06] LABS: Estimated CRCL calculation 57 ml/min; Estimated Glomerular Filt Rate > 60
[2024-12-05] MEDS: POLYSACCHARIDE IRON COMPLEX 150 MG CAPSULE PO ×2 (08:51→17:48)
[2024-12-05] MEDS: MORPHINE SULFATE (*CRX) 30 MG TABCR PO (08:51)
[2024-12-05] MEDS: TAMSULOSIN HCL 0.4 MG CAPSULE PO (08:52)
[2024-12-05] MEDS: SERTRALINE HCL 50 MG TABLET PO (08:52)
[2024-12-05] MEDS: FINASTERIDE 5 MG TABLET PO (08:52)
[2024-12-05] MEDS: FUROSEMIDE 40 MG TABLET PO (08:52)
[2024-12-05] MEDS: LOSARTAN POTASSIUM 50 MG TABLET PO (08:52)
[2024-12-05] MEDS: ASPIRIN 81 MG ENTERIC TABLET PO (08:52)
[2024-12-05] MEDS: FENOFIBRATE 160 MG TABLET PO (08:52)
[2024-12-05] MEDS: buPROPion HCL SR (12 HR) 150 MG TAB PO ×2 (08:53→17:49)
[2024-12-05] MEDS: PANTOPRAZOLE 40 MG TABLET PO (08:53)
[2024-12-05] MEDS: LINACLOTIDE 145 MCG CAPSULE 290 MCG PO (08:53)
[2024-12-05] MEDS: ATORVASTATIN 40 MG TABLET 80 MG PO (08:53)
[2024-12-05] MEDS: guaiFENesin/DEXTROMETHORPHAN 10 ML UDC PO (08:54)
[2024-12-05] MEDS: HEPARIN SODIUM 5,000 UNITS/ML VIAL 5000 UNITS SUB-Q ×2 (08:54→21:13)
[2024-12-05] MEDS: AZITHROMYCIN 500 MG/NS 250 ML 500 MG/250 ML BAG 250 MG IVPB (08:55)
[2024-12-05] MEDS: FLUTICASONE/UMECLIDIN/VILANTER 100-62.5-25 MCG ELLIPTA 1 PUFF INHALATION (09:05)
[2024-12-05] MEDS: IPRATROPIUM 0.5 MG/ALBUTEROL SULFATE 2.5 MG AMPUL.NEB 3 ML INHALATION ×3 (09:08→20:58)
--- NOTE | 2024-12-05 09:32 | P.PNIM_ITS ---
Progress Note: A&P Assessment and Plan (1) Pneumonia: Code(s): J18.9 - Pneumonia, unspecified organism Status: Acute Assessment and Plan: 12/05/24: - Currently on vancomycin, azith, and ceftriaxone with stable oxygenation on home flow. - No cx data to guide abx, has had beta lactam recently. Will change to levaquin for 7 day course. DC vanc with negative MRSA. - Stable labs. 12/04/24 Azithromycin, vancomycin and Rocephin DuoNebs Wean oxygen as able Guaifenesin Monitor CBC and culture. (2) Congestive heart failure: Code(s): I50.9 - Heart failure, unspecified Status: Acute Assessment and Plan: 12/05/24: - Stable on examination does not appear volume overloaded. - Appreciate cardiology recs, home regimen is resumed. 12/04/24 Patient appears fluid overloaded on assessment Cardiology consulted Last echo 11/22/2024 EF of 49% Continue home medication. (3) Acute on chronic respiratory failure with hypoxia: Code(s): J96.21 - Acute and chronic respiratory failure with hypoxia Status: Acute Assessment and Plan: 12/05/24: - COPD pt. on home o2, currently at home dose. Cont. current. - Cont. home trelegy. 12/04/24 History of COPD, Secondary to above Continue with home medication monitor closely. (4) Chronic kidney disease, stage 3: Code(s): N18.30 - Chronic kidney disease, stage 3 unspecified Status: Acute Assessment and Plan: 12/05/24: - Improved. 12/04/24 Baseline around 1.4 Continue current treatment monitor closely. (5) Pleural effusion on right: Code(s): J90 - Pleural effusion, not elsewhere classified Status: Acute Assessment and Plan: Stable on chest x-ray (6) BPH (benign prostatic hyperplasia): Code(s): N40.0 - Benign prostatic hyperplasia without lower urinary tract symptoms Status: Acute Assessment and Plan: Stable on current medications, continue current treatment (7) Anemia: Qualifiers: Anemia type: unspecified type Qualified Code(s): D64.9 - Anemia, unspecified Code(s): D64.9 - Anemia, unspecified Status: Acute Assessment and Plan: Appears to be at baseline Daily CBC Transfuse hemoglobin less than 7 (8) HTN (hypertension): Qualifiers: Hypertension type: primary hypertension Qualified Code(s): I10 - Essential (primary) hypertension Code(s): I10 - Essential (primary) hypertension Status: Chronic Assessment and Plan: 12/05/24: - BP reviewed, stable on home regimen. - Cont. losartan, toprol. 12/04/24 Restart home antihypertensive Plan 12/05/24: - Stable and improving. Plan to cont. abx as failed tx upon recent discharge. Change to quinolone today for 7 day course. If continued improvement likely dc in 24-48 hours. 12/04/2024 Patient is gradually improving. Plan is to continue with IV antibiotics. Monitor labs and electrolytes. Repeat chest x-ray on Thursday. Time Spent With Patient Time with patient: 25 - 35 minutes Subjective Date/time seen: 12/05/24 09:32 Interval history: Russell states he has more cough over the last 24 hours, productive of green sputum. He is not short of breath. Review of Systems Review of Systems: All systems reviewed & are unremarkable except as noted in HPI and below Exam Narrative: GENERAL APPEARANCE: Appears to be in no acute distress. HEAD: normocephalic atraumatic EYES: PERRL, EOMI. Vision grossly intact. ENT: Hearing grossly intact, no nasal discharge NECK: Neck supple, trachea midline. CARDIAC: Normal S1/S2. Rhythm is regular. No murmurs, rubs, or gallops. No cyanosis or pallor. Extremities are warm and well perfused. LUNGS: Coarse rales bilateral bases R>L.. Respirations even and unlabored. ABDOMEN: BS positive x 4 quadrants. Soft, nondistended, nontender. No guarding or rebound. MSK: No joint tenderness/swelling, fair strength in all extremities. PERIPHERAL VASCULAR: Peripheral pulses palpable. Normal perfusion, cap refill <2 seconds. No edema. NEURO: Follows commands. No focal deficits. SKIN: [place] without lesions or eruptions. PSYCH: Stable, no paranoia or delusional thinking. Objective Data Vital Signs Vital Signs: Vital Signs - 24 hr 12/04/24 12:00 12/04/24 12:55 12/04/24 13:05 Temperature 98.1 F Pulse Rate 63 68 69 Respiratory Rate 18 18 18 Blood Pressure 123/40 L Pulse Oximetry 97 Oxygen Delivery Oxygen Flow Rate Fraction of Inspired Oxygen 12/04/24 16:00 12/04/24 19:47 12/04/24 19:47 Temperature 97.8 F Pulse Rate 58 L 67 Respiratory Rate 18 18 Blood Pressure 121/42 L Pulse Oximetry 98 97 Oxygen Delivery Nasal Cannula Oxygen Flow Rate 3 Fraction of Inspired Oxygen 12/04/24 19:56 12/04/24 20:00 12/04/24 21:35 Temperature 98.4 F Pulse Rate 68 68 68 Respiratory Rate 18 18 Blood Pressure 125/50 L Pulse Oximetry 96 Oxygen Delivery Oxygen Flow Rate Fraction of Inspired Oxygen 12/04/24 22:01 12/05/24 00:00 12/05/24 04:00 Temperature 98.4 F 98.4 F 98.6 F Pulse Rate 68 60 60 Respiratory Rate 18 18 16 Blood Pressure 125/50 L 124/51 L 142/53 H Pulse Oximetry 96 97 95 Oxygen Delivery Oxygen Flow Rate Fraction of Inspired Oxygen 12/05/24 08:50 12/05/24 09:08 12/05/24 09:08 Temperature Pulse Rate 67 69 Respiratory Rate 20 20 Blood Pressure 123/78 Pulse Oximetry 98 92 Oxygen Delivery Nasal Cannula Oxygen Flow Rate 3 Fraction of Inspired Oxygen 32 12/05/24 09:14 Temperature Pulse Rate 77 Respiratory Rate 20 Blood Pressure Pulse Oximetry Oxygen Delivery Oxygen Flow Rate Fraction of Inspired Oxygen Intake/Output Intake/Output: Intake & Output 12/02/24 12/03/24 12/04/24 12/05/24 23:59 23:59 23:59 23:59 Intake Total 530 2240 2195 300 Output Total 450 2450 2540 700 Balance 80 -210 -345 -400 Meds/Results Medications: Active Medications Generic Name Dose Route Start Last Admin Trade Name Freq PRN Reason Stop Dose Admin Acetaminophen 650 mg 12/02/24 09:59 Acetaminophen 325 Mg Tablet PO Q4H PRN Mild Pain (1-3) or Fever Acetaminophen 1,000 mg 12/02/24 20:42 Acetaminophen 500 Mg Tablet PO Q6H PRN PAIN RATED 1-3 Hydrocodone Bitart/Acetaminophen 1 tab 12/02/24 09:59 12/02/24 20:06 Hydrocodone/Acetaminophen (*Crx) 5-325 Mg Tablet PO 1 tab Q4H PRN Administration Pain Rated 4-6 Hydrocodone Bitart/Acetaminophen 1 tab 12/02/24 12:58 Hydrocodone/Acetaminophen (*Crx) 10-325 Mg Tablet PO Q4H PRN Pain Rated 7-10 Albuterol/Ipratropium 3 ml 12/02/24 14:00 12/05/24 09:08 Ipratropium 0.5 Mg/Albuterol Sulfate 2.5 Mg Ampul.Neb 3 Ml INHALATION 3 ml Q6HRT GIOVANNY Administration Albuterol/Ipratropium 3 ml 12/02/24 18:00 Ipratropium 0.5 Mg/Albuterol Sulfate 2.5 Mg Ampul.Neb 3 Ml INHALATION Q6HRT PRN Shortness Of Breath Or Wheezing Aspirin 81 mg 12/03/24 09:00 12/05/24 08:52 Aspirin 81 Mg Enteric Tablet PO 81 mg DAILY GIOVANNY Administration Atorvastatin Calcium 80 mg 12/03/24 09:00 12/05/24 08:53 Atorvastatin 40 Mg Tablet PO 80 mg DAILY GIOVANNY Administration Baclofen 10 mg 12/02/24 12:53 12/02/24 13:13 Baclofen 10 Mg Tablet PO 10 mg Q12HR PRN Administration muscle spasms Bupropion HCl 150 mg 12/02/24 17:00 12/05/24 08:53 Bupropion Hcl Sr (12 Hr) 150 Mg Tab PO 150 mg BID GIOVANNY Administration Docusate Sodium 100 mg 12/03/24 09:00 12/05/24 08:54 Docusate Sodium 100 Mg Capsule PO Not Given DAILY GIOVANNY Fenofibrate 160 mg 12/03/24 09:00 12/05/24 08:52 Fenofibrate 160 Mg Tablet PO 160 mg DAILY GIOVANNY Administration Finasteride 5 mg 12/03/24 09:00 12/05/24 08:52 Finasteride 5 Mg Tablet PO 5 mg DAILY GIOVANNY Administration Fluticasone/Umeclidinium/Vilanterol 1 puff 12/03/24 08:00 12/05/24 09:05 Fluticasone/Umeclidin/Vilanter 100-62.5-25 Mcg Ellipta INHALATION 1 puff DAILYRT GIOVANNY Administration Furosemide 40 mg 12/04/24 09:00 12/05/24 08:52 Furosemide 40 Mg Tablet PO 40 mg DAILY GIOVANNY Administration Guaifenesin 1,200 mg 12/02/24 18:46 Guaifenesin 12 Hr 600 Mg Tabcr PO BID PRN cough Guaifenesin/Dextromethorphan 10 ml 12/03/24 01:00 12/05/24 08:54 Guaifenesin/Dextromethorphan 10 Ml Udc PO 10 ml Q4HR GIOVANNY Administration Heparin Sodium (Porcine) 5,000 units 12/03/24 09:00 12/05/24 08:54 Heparin Sodium 5,000 Units/Ml Vial SUB-Q 5,000 units Q12HR GIOVANNY Administration Ceftriaxone Sodium 1 gm in 50 mls @ 100 mls/hr 12/03/24 09:00 12/05/24 08:53 Rocephin 1 Gm/Ns 50 Ml IVPB 100 mls/hr Q24H GIOVANNY Administration Azithromycin 500 mg in 250 mls @ 250 mls/hr 12/03/24 09:00 12/05/24 08:55 Zithromax IVPB 250 mls/hr Q24H GIOVANNY Administration Vancomycin HCl 1,750 mg in 500 mls @ 250 mls/hr 12/04/24 12:00 12/04/24 14:08 Vancomycin 1,750 Mg/Ns 500 Ml IVPB Infused Q24H GIOVANNY Infusion Linaclotide 290 mcg 12/03/24 09:00 12/05/24 08:53 Linaclotide 145 Mcg Capsule PO 290 mcg DAILY GIOVANNY Administration Lorazepam 0.5 mg 12/02/24 12:56 12/04/24 17:39 Lorazepam (*Crx) 0.5 Mg Tablet PO 0.5 mg BID PRN Administration anxiety Losartan Potassium 50 mg 12/03/24 09:00 12/05/24 08:52 Losartan Potassium 50 Mg Tablet PO 50 mg DAILY GIOVANNY Administration Metoprolol Succinate 50 mg 12/02/24 21:00 12/04/24 21:35 Metoprolol Succinate Ext Rel 50 Mg Tabcr PO 50 mg HS GIOVANNY Administration Miscellaneous Information 1 each 12/03/24 00:01 Med Rec Order Clarification XX 01/02/25 00:00 [facility] Morphine Sulfate 30 mg 12/03/24 09:00 12/05/24 08:51 Morphine Sulfate (*Crx) 30 Mg Tabcr PO 30 mg QAM GIOVANNY Administration Non-Formulary Medication 0.3 mg 12/02/24 18:46 Nitroglycerin SUBLINGUAL Q5M PRN Chest Pain Pantoprazole Sodium 40 mg 12/04/24 09:00 12/05/24 08:53 Pantoprazole 40 Mg Tablet PO 40 mg QAM GIOVANNY Administration Polyethylene Glycol 17 gm 12/02/24 20:42 Polyethylene Glycol 3350 17 Gm Powd.Pack PO QAM PRN Constipation Polysaccharide Iron Complex 150 mg 12/03/24 17:00 12/05/24 08:51 Polysaccharide Iron Complex 150 Mg Capsule PO 150 mg BIDWM GIOVANNY Administration Promethazine HCl 12.5 mg 12/02/24 09:59 Promethazine Hcl 25 Mg/Ml Ampul IV PUSH Q6H PRN Nausea Sertraline HCl 50 mg 12/03/24 09:00 12/05/24 08:52 Sertraline Hcl 50 Mg Tablet PO 50 mg DAILY GIOVANNY Administration Tamsulosin HCl 0.4 mg 12/03/24 09:00 12/05/24 08:52 Tamsulosin Hcl 0.4 Mg Capsule PO 0.4 mg DAILY GIOVANNY Administration Trazodone HCl 100 mg 12/02/24 21:00 12/04/24 21:36 Trazodone Hcl 50 Mg Tablet PO 100 mg HS GIOVANNY Administration Radiology Results: ITS Impressions Chest X-Ray 12/05/24 08:43 IMPRESSION: Right basilar atelectasis versus pneumonia with pleural effusion. Labs Labs: Laboratory Results - last 24 hr 12/04/24 12/05/24 10:01 06:41 WBC 6.3 RBC 2.88 L Hgb 8.9 L Hct 28.7 L MCV 99.7 MCH 30.9 MCHC 31.0 L RDW 15.2 H Plt Count 277 MPV 10.1 Sodium 137 Potassium 3.5 Chloride 104 Carbon Dioxide 30 Anion Gap 3 L BUN 18 Creatinine 1.09 0.98 Estim Creat Clear Calc 51 57 Estimated GFR > 60 > 60 Glucose 94 Calcium 8.9 Total Bilirubin 0.4 AST 27 ALT 16 Alkaline Phosphatase 71 Total Protein 6.0 L Albumin 3.3 L Vancomycin Trough 13.8 Quality VTE Prophylaxis VTE prophylaxis: mechanical ordered and pharmacologic ordered Hospitalist MIPS Advance Care Plan I have confirmed that the patient's Advanced Care Plan is present, code status is documented, or surrogate decision maker is listed in patient medical record.: Yes Medication Reconciliation I have utilized all available resources to obtain, update and review the allison ents current medications (includes all prescriptions, OTC, herbals, cannabis, and nutritional supplements).: Yes
[2024-12-05 10:09] LABS: Hematocrit 26.2 % (42.0-52.0); Hemoglobin 8.2 g/dL (14.0-18.0); Mean Corpuscular HGB Conc 31.3 g/dl (32-36); Mean Corpuscular Hemoglobin 31.5 pg (26-34); Mean Corpuscular Volume 100.8 fl (80-100); Mean Platelet Volume 12.5 fl (7.4-10.4); Platelet Count Result 250 k/mm3 (150-375); Red Cell Distribution Width 15.1 % (11.5-14.5); White Blood Count 6.2 K/mm3 (4.5-10.0)
[2024-12-05 10:42] LABS: Anion Gap 5 mmol/L (4-12); Blood Urea Nitrogen 15 mg/dL (9-20); Calcium 8.4 mg/dL (8.4-10.2); Carbon Dioxide 30 mmol/L (22-30); Chloride 104 mmol/L (98-107); Estimated CRCL calculation 55 ml/min; Estimated Glomerular Filt Rate > 60; Glucose 96 mg/dL (65-110); Potassium 3.6 mmol/L (3.4-5.0); Sodium 139 mmol/L (137-145)
[2024-12-05 10:59] LABS: Procalcitonin. 0.1 ng/mL
[2024-12-05] MEDS: LORazepam (*CRX) 0.5 MG TABLET PO (15:11)
[2024-12-05] MEDS: guaiFENesin 12 HR 600 MG TABCR 1200 MG PO (17:49)
[2024-12-05] MEDS: traZODone HCL 50 MG TABLET 100 MG PO (21:13)
[2024-12-05] MEDS: METOPROLOL SUCCINATE EXT REL 50 MG TABCR PO (21:13)
[2024-12-06] VITALS (10 sets, daily range): BP systolic 135–140; BP diastolic 48–66; PULSE 60–68; RESP 16–20; TEMP 36.3–37.2; O2SAT 94–98
[2024-12-06] MEDS: IPRATROPIUM 0.5 MG/ALBUTEROL SULFATE 2.5 MG AMPUL.NEB 3 ML INHALATION ×3 (02:24→13:42)
[2024-12-06] MEDS: FLUTICASONE/UMECLIDIN/VILANTER 100-62.5-25 MCG ELLIPTA 1 PUFF INHALATION (07:14)
[2024-12-06] MEDS: ACETAMINOPHEN 325 MG TABLET 650 MG PO (07:34)
[2024-12-06 07:37] LABS: Hematocrit 28.1 % (42.0-52.0); Hemoglobin 8.7 g/dL (14.0-18.0); Mean Corpuscular Hemoglobin 31.1 pg (26-34); Mean Corpuscular Volume 100.4 fl (80-100); Mean Platelet Volume 10.5 fl (7.4-10.4); Platelet Count Result 237 k/mm3 (150-375); Red Cell Distribution Width 14.7 % (11.5-14.5); White Blood Count 4.6 K/mm3 (4.5-10.0)
[2024-12-06 07:48] LABS: Alanine Aminotransferase 13 U/L (6-50); Alkaline Phosphatase 64 U/L (38-126); Anion Gap 2 mmol/L (4-12); Aspartate Amino Transferase 21 U/L (17-59); Bilirubin,Total 0.4 mg/dL (0.2-1.3); Blood Urea Nitrogen 14 mg/dL (9-20); Calcium 8.5 mg/dL (8.4-10.2); Carbon Dioxide 34 mmol/L (22-30); Chloride 101 mmol/L (98-107); Estimated CRCL calculation 57 ml/min; Estimated Glomerular Filt Rate > 60; Glucose 93 mg/dL (65-110); Potassium 3.8 mmol/L (3.4-5.0); Sodium 137 mmol/L (137-145)
[2024-12-06] MEDS: TAMSULOSIN HCL 0.4 MG CAPSULE PO (08:46)
[2024-12-06] MEDS: ASPIRIN 81 MG ENTERIC TABLET PO (08:46)
[2024-12-06] MEDS: ATORVASTATIN 40 MG TABLET 80 MG PO (08:46)
[2024-12-06] MEDS: MORPHINE SULFATE (*CRX) 30 MG TABCR PO (08:46)
[2024-12-06] MEDS: FINASTERIDE 5 MG TABLET PO (08:46)
[2024-12-06] MEDS: buPROPion HCL SR (12 HR) 150 MG TAB PO ×2 (08:46→16:52)
[2024-12-06] MEDS: LOSARTAN POTASSIUM 50 MG TABLET PO (08:46)
[2024-12-06] MEDS: FUROSEMIDE 40 MG TABLET PO (08:46)
[2024-12-06] MEDS: FENOFIBRATE 160 MG TABLET PO (08:47)
[2024-12-06] MEDS: POLYSACCHARIDE IRON COMPLEX 150 MG CAPSULE PO ×2 (08:47→16:52)
[2024-12-06] MEDS: LINACLOTIDE 145 MCG CAPSULE 290 MCG PO (08:47)
[2024-12-06] MEDS: PANTOPRAZOLE 40 MG TABLET PO (08:47)
[2024-12-06] MEDS: SERTRALINE HCL 50 MG TABLET PO (08:47)
[2024-12-06] MEDS: HEPARIN SODIUM 5,000 UNITS/ML VIAL 5000 UNITS SUB-Q (08:48)
[2024-12-06] MEDS: LORazepam (*CRX) 0.5 MG TABLET PO (08:51)
[2024-12-06] MEDS: levoFLOXacin 750 MG TABLET PO (09:15)
--- NOTE | 2024-12-06 16:02 | PM.DS ---
DS: Admitting Diagnosis Discharge Date 12/06/2024 Admitting Diagnosis shortness of breath DS: Discharge Diagnosis Discharge Diagnosis (1) Pneumonia: Code(s): J18.9 - Pneumonia, unspecified organism Status: Acute (2) Congestive heart failure: Code(s): I50.9 - Heart failure, unspecified Status: Acute (3) Acute on chronic respiratory failure with hypoxia: Code(s): J96.21 - Acute and chronic respiratory failure with hypoxia Status: Acute (4) Chronic kidney disease, stage 3: Code(s): N18.30 - Chronic kidney disease, stage 3 unspecified Status: Acute (5) Pleural effusion on right: Code(s): J90 - Pleural effusion, not elsewhere classified Status: Acute (6) BPH (benign prostatic hyperplasia): Code(s): N40.0 - Benign prostatic hyperplasia without lower urinary tract symptoms Status: Acute (7) Anemia: Qualifiers: Anemia type: unspecified type Qualified Code(s): D64.9 - Anemia, unspecified Code(s): D64.9 - Anemia, unspecified Status: Acute (8) HTN (hypertension): Qualifiers: Hypertension type: primary hypertension Qualified Code(s): I10 - Essential (primary) hypertension Code(s): I10 - Essential (primary) hypertension Status: Chronic DS: Summary Hospital Course Hospital Course: 79-year-old male presents the hospital with history of congestive heart failure, COPD, chronic kidney disease stage 3, BPH, cancer of the lower jaw, and abdominal aneurysm presents the hospital with shortness of breath. Patient was recently in the hospital for pneumonia and was sent home on azithromycin however cannot be filled because the pharmacy did not have it. Patient came back to the hospital with worsening of shortening and shortness of breath. Leukocytosis at 22.4, anemia at 10.2, BUN of 41, creatinine of 1.9 to baseline appears to be 1.4, BNP of 469, chest x-ray shows Airspace opacities in the mid and lower lung zones with worsening at right lung base, consistent with pneumonia and chronic lung disease and Stable small loculated right pleural effusion. EKG shows sinus tachycardia with QTC of 467. Blood cultures pending. Patient was started on Rocephin, vancomycin and azithromycin. he continued to improve. antibitoics were switched to oral. MRSA nasal swab came back negative. oxygen was tapered down to baseline. for chf, cardiology was consulted. appeared euvolemic at the time of discahrge. Last echo 11/22/2024 EF of 49% Time Spent with Patient Time attestation: Total time spent providing and/or coordinating discharge services: 45 mins Exam Narrative: GENERAL APPEARANCE: Appears to be in no acute distress. HEAD: normocephalic atraumatic EYES: PERRL, EOMI. Vision grossly intact. ENT: Hearing grossly intact, no nasal discharge NECK: Neck supple, trachea midline. CARDIAC: Normal S1/S2. Rhythm is regular. No murmurs, rubs, or gallops. No cyanosis or pallor. Extremities are warm and well perfused. LUNGS: Coarse rales bilateral bases R>L.. Respirations even and unlabored. ABDOMEN: BS positive x 4 quadrants. Soft, nondistended, nontender. No guarding or rebound. MSK: No joint tenderness/swelling, fair strength in all extremities. PERIPHERAL VASCULAR: Peripheral pulses palpable. Normal perfusion, cap refill <2 seconds. No edema. NEURO: Follows commands. No focal deficits. SKIN: [place] without lesions or eruptions. PSYCH: Stable, no paranoia or delusional thinking. DS: Data Data Completed and Pending Labs on day of discharge: Labs from last 24 hours 12/06/24 07:07 WBC 4.6 RBC 2.80 L Hgb 8.7 L Hct 28.1 L MCV 100.4 H MCH 31.1 MCHC 31.0 L RDW 14.7 H Plt Count 237 MPV 10.5 H Sodium 137 Potassium 3.8 Chloride 101 Carbon Dioxide 34 H Anion Gap 2 L BUN 14 Creatinine 0.97 Estim Creat Clear Calc 57 Estimated GFR > 60 Glucose 93 Calcium 8.5 Total Bilirubin 0.4 AST 21 ALT 13 Alkaline Phosphatase 64 Total Protein 6.0 L Albumin 3.0 L Preliminary micro results at discharge 12/02/24 10:11 Blood Culture - Preliminary Blood 12/02/24 09:59 Blood Culture - Preliminary Blood Imaging Radiologist's impression: ITS Impressions Chest X-Ray 12/02/24 09:33 IMPRESSION: 1. Airspace opacities in the mid and lower lung zones with worsening at right lung base, consistent with pneumonia and chronic lung disease. 2. Stable small loculated right pleural effusion. Chest X-Ray 12/05/24 08:43 IMPRESSION: Right basilar atelectasis versus pneumonia with pleural effusion. Discharge Plan Discharge Attending physician on discharge: Luiz Tejeda Discharging Clinician: Luiz Tejeda Anticipated Discharge Date/Time: 12/06/24 16:07 Patient Disposition: Home Health Service Activity: as tolerated Diet: heart healthy Discharge Instructions: Per Care Coordination Patient is current with [facility] for RN, PT, OT [phone]. Please resume services at discharge. [facility] staff will call to arrange Home Health visits in your home after discharge. follow up with gastroenterology as previously planned. call his office for appointment. continue oxygen as previously prescribed Patient Instructions: Antibiotic Form Patient Language: Polish Stand Alone Forms: General Discharge Information Follow-up/Referrals: Naveed Mcintosh MD [Primary Care Provider] - 1 Week Eusebio Yu MD [Physician] - 4 Weeks Discharge Medications: New levofloxacin 750 mg tablet 750 mg PO DAILY Qty: 2 0RF Continued Mucinex 1,200 mg tablet extended release 12hr 1,200 mg PO BID PRN (Reason: cough) nitroglycerin 0.3 mg tablet, sublingual 0.3 mg sublingual Q5M PRN (Reason: Chest Pain) Rx Instructions: do not exceed 3 doses per episode finasteride [Proscar] 5 mg tablet 5 mg PO DAILY acetaminophen [Tylenol Extra Strength] 500 mg tablet 1,000 mg PO Q6H PRN (Reason: Pain) multivitamin Tablet 1 tablet PO DAILY ipratropium-albuterol 0.5 mg-3 mg(2.5 mg base)/3 mL solution for nebulization 3 ml inhalation Q8H PRN (Reason: shortness of breath or wheezing) Qty: 180 5RF (DME) nebulizer and compressor Device See Rx Instructions .Route Qty: 1 0RF Rx Instructions: As directed (DME) nebulizer accessories Kit See Rx Instructions .Route Qty: 1 0RF Rx Instructions: As directed baclofen 10 mg tablet 10 mg PO Q12H PRN (Reason: muscle spasm) Zyrtec 10 mg Capsule 10 mg PO DAILY PRN (Reason: allergies) polyethylene glycol 3350 [Miralax] 17 gram Powder In Packet 17 g PO QAM PRN (Reason: Constipation) Qty: 30 0RF aspirin 81 mg Tablet,Delayed Release (Dr/Ec) 81 mg PO DAILY Qty: 90 0RF Saccharomyces boulardii [Florastor] 250 mg Capsule 250 mg PO TID Qty: 30 0RF simethicone [Gas-X Extra Strength] 125 mg Capsule 125 mg PO PRN metoprolol succinate 50 mg Tablet Extended Release 24 Hr 50 mg PO HS Qty: 30 0RF fenofibrate 160 mg tablet 160 mg PO DAILY Qty: 90 2RF losartan 50 mg tablet 50 mg PO DAILY Qty: 90 3RF Linzess 290 mcg capsule See Rx Instructions .ROUTE .COMPLEX Qty: 90 3RF Dose Instruction: TAKE 1 CAPSULE BY MOUTH DAILY Rx Instructions: TAKE 1 CAPSULE BY MOUTH DAILY esomeprazole magnesium 20 mg capsule,delayed release(DR/EC) See Rx Instructions .ROUTE .COMPLEX Qty: 90 3RF Dose Instruction: TAKE 1 CAPSULE BY MOUTH DAILY Rx Instructions: TAKE 1 CAPSULE BY MOUTH DAILY sertraline 50 mg tablet 50 mg PO DAILY Qty: 90 3RF Breztri Aerosphere 160-9-4.8 mcg/actuation HFA aerosol inhaler See Rx Instructions .ROUTE .COMPLEX Qty: 10.7 5RF Dose Instruction: INHALE 2 PUFFS BY MOUTH TWICE DAILY. RINSE AND SPIT AFTER USE Rx Instructions: INHALE 2 PUFFS BY MOUTH TWICE DAILY. RINSE AND SPIT AFTER USE trazodone 100 mg tablet 100 mg PO HS Qty: 90 1RF bupropion HCl 150 mg tablet sustained-release 12 hr 150 mg PO BID Qty: 180 2RF albuterol sulfate 90 mcg/actuation HFA aerosol inhaler 2 puff INHALATION Q4H PRN (Reason: Shortness Of Breath Or Wheezing) Qty: 8.5 5RF tamsulosin 0.4 mg capsule 0.4 mg PO DAILY Qty: 90 3RF morphine 30 mg tablet extended release 30 mg PO QAM Qty: 30 0RF atorvastatin 80 mg tablet 80 mg PO DAILY Qty: 90 0RF lorazepam 0.5 mg tablet 0.5 mg PO BID PRN (Reason: anxiety) Qty: 40 1RF furosemide 40 mg tablet 60 mg PO DAILY Qty: 135 1RF No Action amoxicillin-pot clavulanate 875-125 mg tablet 1 tablet PO Q12H Qty: 14 0RF Date of admission: 12/03/24 11:43 Primary Care Provider: Naveed Mcintosh Admitting Provider: Luiz Tejeda Attending physician on admission: Luiz Tejeda Condition: Stable
--- OUTSIDE RECORDS SUMMARY | 2024-12-09 21:42 | XMS_ITS | Continuity of Care Document ---
Author Organization [facility] Main Address [address] [place] [address] Insurance Providers Payer Plan Claims Address Claims Phone Policy Number Group Number Relation Employer Guarantor Name Guarantor Guarantor Address Guarantor Phone [facility] [employer] [address] [address], [place] [address] tel:[phone] Self Russell Morse [address] [place] [address] [place] [address] [facility] [employer] [address] [address], [place] [address] tel:[phone] Self Russell Morse [address] [place] [address] [id number] [facility] fatemeh [employer]ura [employer]he [facility] Insur [facility] [id number] Self Russell Morse [address] [place] [address] [id number] Problems Condition ICD9 code ICD10 code SNOMED [...]
--- OUTSIDE RECORDS SUMMARY | 2024-12-09 21:43 | XMS_ITS ---
Author Name Kim Mcdonough NP Address Unknown Phone tel: Organization Unknown Address Unknown Phone tel: Care Team Providers Care Invoice Machine Operator Name Role Phone Kim Mcdonough NP Primary Care Provider tel: Rena Doe Primary Care Provider tel: ALLERGIES, ADVERSE REACTIONS Substance Reaction Severity Status No Known Drug Allergies, [Code: ] Unassig todd Active ASSESSMENTS Data in this section may be excluded or not available. SOCIAL HISTORY Description Effective Dates Sex M (Male) VITAL SIGNS Type Value Date Height (Code: 8302-2 ) 71 ( [in_i] ) November 20, 2024 BP (Systolic) (Code: 8480-6 ) 124 ( mm[Hg] ) De cember 2023 BP (Diastolic) (Code: 8462-4 ) 62 ( mm[Hg] ) D ecember 2023 Pulse (Code: 8867-4 ) 65 ( /min ) November 20, 2024 Oxygen Saturation (Code: 14227-0 ) 93 ( % ) November 20, 2024 Inhaled Oxygen Concentration (Code: 3150-0 ) 32 ( % ) November 20, 2024 Temperature (Code: 8310-5 ) 97 ( [degF] ) Dece mber 2023 Respiration (Code: 9279-1 ) 20 ( /min ) Dece mber 2023 Faces Pain Scale (Code: 85175-9 ) 0 - No Hurt ( ) November 20, 2024 PROBLEMS Data in this section may be excluded or not available. Patient Care Teams * Care Invoice Machine Operator Role on Team Date Sharonda. Kim Doe. Rena
--- OUTSIDE RECORDS SUMMARY | 2024-12-09 21:43 | XMS_ITS ---
Author Name Kim Mcdonough NP Address Unknown Phone tel: Organization Unknown Address Unknown Phone tel: Care Team Providers Care Treatment Supervisor Name Role Phone Kim Mcdonough NP Primary [...] 8302-2 ) 71 ( [in_i] ) November 19, 2024 Pulse (Code: 8867-4 ) 63 ( /min ) October 242023 Oxygen Saturation (Code: 73494-1 ) 93 ( % ) November 19, 2024 Inhaled Oxygen Concentration (Code: 3150-0 ) 32 ( % ) November 19, 2024 Faces Pain Scale (Code: 62713-9 ) 0 - No Hurt ( ) November 19, 2024 PROBLEMS Data in this section may be excluded or not available. Patient Care Teams * Care Treatment Supervisor Role on Team Date Sharonda. Kim Doe. Rena
== END 2024-12-06 18:10 | disposition home health service (06) | DRG 194 ==
LOC: ANHED 08:22 → ANH3MEDSUR 10:33
PROVIDERS: Internal Medicine; Nurse Practitioner Family; Nurse Practitioner Gerontology; Admitting Provider Internal Medicine; Emergency Provider Emergency Medicine; PCP Family Medicine Adolescent Medicine; Visit Provider Internal Medicine
DX: J18.9 Pneumonia, unspecified organism (principal); I13.0 Hypertensive heart and chronic kidney disease with heart failure and stage 1 through stage 4 chronic kidney disease, or unspecified chronic kidney disease; I50.32 Chronic diastolic (congestive) heart failure; J44.0 Chronic obstructive pulmonary disease with (acute) lower respiratory infection; J96.11 Chronic respiratory failure with hypoxia; N18.30 Chronic kidney disease, stage 3 unspecified; I25.5 Ischemic cardiomyopathy; D63.1 Anemia in chronic kidney disease; E78.5 Hyperlipidemia, unspecified; I25.2 Old myocardial infarction; I25.10 Atherosclerotic heart disease of native coronary artery without angina pectoris; K21.9 Gastro-esophageal reflux disease without esophagitis; N40.0 Benign prostatic hyperplasia without lower urinary tract symptoms; Z87.891 Personal history of nicotine dependence; Z95.5 Presence of coronary angioplasty implant and graft; Z85.818 Personal history of malignant neoplasm of other sites of lip, oral cavity, and pharynx; Z86.12 Personal history of poliomyelitis; Z79.82 Long term (current) use of aspirin
CPT/HCPCS: 36415; 71046; 80048; 80053; 80202; 82565; 83605; 83880; 84145; 85025; 85027; 87040; 87641; 93005; 94640; 96365; 96367; 96375; 96376; 97161; 97165; 99285; A9270; G0378; J0456; J0696; J1644; J1940; J2270; J3370; J7030

== ENCOUNTER 2024-12-14 14:15 | Outpatient (CLI) | payer MEDICARE, MEDICAID, SELFPAY ==
[2024-12-14 15:07] LABS: Basophils Percent Auto 0.3 % (0.2-1.2); Eosinophils Absolute Auto 0.2 K/mm3 (0-0.3); Eosinophils Percent Auto 2.3 % (0-4.4); Hematocrit 34.8 % (42.0-52.0); Hemoglobin 10.7 g/dL (14.0-18.0); Immature Granulocyte Absolute 0.05 K/mm3 (0.00-0.031); Immature Granulocyte Percent A 0.5 % (0-0.5); Mean Corpuscular HGB Conc 30.7 g/dl (32-36); Mean Corpuscular Hemoglobin 30.9 pg (26-34); Mean Corpuscular Volume 100.6 fl (80-100); Mean Platelet Volume 10.2 fl (7.4-10.4); Monocytes Absolute Auto 0.6 K/mm3 (0.1-0.6); Monocytes Percent Auto 6.3 % (2.6-8.5); Neutrophils Absolute Auto 7.9 K/mm3 (1.3-6.7); Neutrophils Percent Auto 78.6 % (45.5-73.1); Platelet Count Result 303 k/mm3 (150-375); Red Blood Count 3.46 M/mm3 (4.6-6.20); Red Cell Distribution Width 15.4 % (11.5-14.5)
[2024-12-14 16:26] LABS: CRP 3.6 mg/dL (<1.0); Creatine Kinase 43 U/L (55-170)
[2024-12-16 13:43] LABS: Anti Cyclic Citrullinated Pept <16 UNITS
[2024-12-16 22:18] LABS: Immunoglobulin G, Serum 625 mg/dL (600-1540); Immunoglobulin G1 388 mg/dL (382-929); Immunoglobulin G2 136 mg/dL (241-700); Immunoglobulin G3 28 mg/dL (22-178); Immunoglobulin G4 27.2 mg/dL (4.0-86.0)
[2024-12-17 11:02] LABS: ANCA Screen NEGATIVE (NEGATIVE)
[2024-12-19 12:32] LABS: Conventional Class 0/1
== END 2024-12-14 14:16 | disposition home or self-care (01) ==
PROVIDERS: PCP Family Medicine Adolescent Medicine; Visit Provider Internal Medicine Pulmonary Disease
DX: J90 Pleural effusion, not elsewhere classified (principal); J18.9 Pneumonia, unspecified organism; J47.9 Bronchiectasis, uncomplicated; J44.9 Chronic obstructive pulmonary disease, unspecified; J98.4 Other disorders of lung
CPT/HCPCS: 36415; 82550; 82784; 82787; 85025; 86003; 86036; 86038; 86140; 86200; 86225; 86235; 86364; 86606

== ENCOUNTER 2024-12-16 12:33 | Outpatient (RCR) | payer MEDICARE, MEDICAID, SELFPAY | END 2024-12-16 12:34 | disposition home or self-care (01) | LOC: ANHLAB 12:33 | PROVIDERS: PCP Family Medicine Adolescent Medicine; Visit Provider Internal Medicine Pulmonary Disease | DX: J90 Pleural effusion, not elsewhere classified (principal) | CPT/HCPCS: 87015; 87116; 87206 ==

== ENCOUNTER 2025-01-02 13:27 | Outpatient (CLI) | payer MEDICARE, MEDICAID, SELFPAY ==
--- NOTE | ~2025-01-02 | XR_ITS ---
MODIFIED ESOPHAGRAM HISTORY: Pneumonia TECHNIQUE: Modified barium esophagram was performed on 01/02/2025. I administered fluoroscopy and perf ormed the exam with speech pathologist. Patient was seated for lateral fluoroscopic imaging for yeny stion of thin liquids, pudding, solids and quantified amounts, followed by thin liquids in uncontroll ed amounts. This was recorded on tape. A single fluoroscopic spot image was also recorded. The DAP fo r this procedure was 1.22 Gycm2. The amount of fluoroscopy time used during this procedure was 2.2 mi nutes. FINDINGS: Small ringlike metallic foreign body seen projecting over the vallecula which position in the soft ti ssues anterior to the right sternomastoid muscle on CT dated 02/01/2023. Oral stage: Adequate function. Pharyngeal stage: There is reduced laryngeal elevation and tongue base retraction. There is vallecula r residue. There was laryngeal penetration with aspiration. Cervical/esophageal stage: Adequate function. IMPRESSION: Pharyngeal dysphagia with laryngeal penetration and aspiration. Please correlate with sp eech pathologist findings and specific feeding recommendations. Reviewed, dictated and finalized at location A. SEQUENCING ASSOCIATE IMPRESSION: Pharyngeal dysphagia with laryngeal penetration and aspiration. Pl ease correlate with speech pathologist findings and specific feeding recommenda tions.
--- OUTSIDE RECORDS SUMMARY | 2025-01-02 13:38 | XMS_ITS | Continuity of Care Document ---
Author Organization [facility] Address [address] [place] [address] Insurance Providers Payer Plan Claims Address Claims Phone Policy Number Group Number Relation Employer Guarantor Name Guarantor Guarantor Address Guarantor Phone [facility] RE ADVANT AGE [place] [employer] HCARE MEDIC ARE [place]O [address] [address], [place] [address] tel:[phone] Self Russell Morse [address] [place] [address] [place] [address] [facility] HCARE MEDIC ARE [address] [address], [place] [address] tel:[phone] Self Russell Morse [address] [place] [address] [phone] [facility] fatemeh Insura mie Conve [facility] Insur [facility] [id number] Self Russell Morse [address] [place] [address] [id number] Problems Condition ICD9 code ICD10 code SNOMED [...] mm[Hg] N Body Height 71 [in_i] N 12/07/2024 Inhaled Oxygen Concentration 32.0 % N Faces Pain Scale 0.0 N Temperature 97.8 [degF] N Oxygen Saturation 91 % N Respiratory Rate 18 /min N Heart Rate 68 /min N Blood Pressure Systolic 126 mm[Hg] N Blood Pressure Diastolic 74 mm[Hg] N Body Height 71 [in_i] N Body Weight 185 [lb_av] N Body Mass Index 25.8 kg/m2 N 12/16/2024 Inhaled Oxygen Concentration 32.0 % N Oxygen Saturation 97 % N Respiratory Rate 18 /min N Heart Rate 74 /min N Blood Pressure Systolic 128 mm[Hg] N Blood Pressure Diastolic 78 mm[Hg] N Body Height 71 [in_i] N Body Weight 185 [lb_av] N Body Mass Index 25.8 kg/m2 N 12/22/2024 Inhaled Oxygen Concentration 21.0 % N Oxygen Saturation 95 % N Respiratory Rate 18 /min N Heart Rate 68 /min N Blood Pressure Systolic 122 mm[Hg] N Blood Pressure Diastolic 62 mm[Hg] N Body Height 71 [in_i] N Body Weight 185 [lb_av] N Body Mass Index 25.8 kg/m2 N 12/28/2024 Inhaled Oxygen Concentration 28.0 % N Oxygen Saturation 96 % N Respiratory Rate 20 /min N Heart Rate 62 /min N Blood Pressure Systolic 128 mm[Hg] N Blood Pressure Diastolic 64 mm[Hg] N Body Height 71 [in_i] N Body Weight 187 [lb_av] N Body Mass Index 26.1 kg/m2 N Social History No smoking Hx information available Functional Status Category Condition Date Problem (Bladder: Continent) Bladder: Continent 11/09/2024 Problem (Grooming: Independe nt face/hair/teeth/ shaving (implements provided)) Grooming: Independent face/hair/teeth/ shaving (implements provided) 11/09/2024 Problem (Total score: 90) Total score: 90 2023 Problem (Transfers (bed to c hair and back): Independent) Transfers (bed to chair and back): Independent 11/09/2024 Problem (Stairs: Unable) Stairs: Unable 024 Problem (Bathing: Independen t (or in shower)) Bathing: Independent (or in shower) 11/09/2024 Problem (Dressing: Independe nt (including buttons, zips, laces, etc.)) Dressing: Independent (including buttons, zips, laces, etc.) 11/09/2024 Problem (Feeding: Independent) Feeding: Independ ent 11/09/2024 Problem (Bowels: Continent) Bowels: Continent Problem (Mobility (on level surfaces): Independent (but may use any aid; for example, stick) >50 yards) Mobility (on level surfaces): Independent (but may use any aid; for example, stick) >50 yards 11/09/2024 Problem (Toilet use: Indepen dent (on and off, dressing, wiping)) Toilet use: Independent (on and off, dressing, wiping) 11/09/2024 Problem (Bowels: Continent) Bowels: Continent Problem (Feeding: Independent) Feeding: Independ ent 12/07/2024 Problem (Transfers (bed to c hair and back): Independent) Transfers (bed to chair and back): Independent 12/07/2024 Problem (Toilet use: Indepen dent (on and off, dressing, wiping)) Toilet use: Independent (on and off, dressing, wiping) 12/07/2024 Problem (Mobility (on level surfaces): Independent (but may use any aid; for example, stick) >50 yards) Mobility (on level surfaces): Independent (but may use any aid; for example, stick) >50 yards 12/07/2024 Problem (Bathing: Dependent) Bathing: Dependent 12/07/2024 Problem (Total score: 85) Total score: 85 2024 Problem (Grooming: Independe nt face/hair/teeth/ shaving (implements provided)) Grooming: Independent face/hair/teeth/ shaving (implements provided) 12/07/2024 Problem (Dressing: Independe nt (including buttons, zips, laces, etc.)) Dressing: Independent (including buttons, zips, laces, etc.) 12/07/2024 Problem (Bladder: Continent) Bladder: Continent 12/07/2024 Problem (Stairs: Unable) Stairs: Unable 025
--- OUTSIDE RECORDS SUMMARY | 2025-01-02 13:38 | XMS_ITS | Referral Summary ---
Author Organization [facility] [address] [place] [address] [address] [place] [address] Care Team Providers Care Account Technician Name Role Phone Naveed Mcintosh MD Primary Care Prov ider Encounters Date Type Department Care Team Description 12/21/[address] 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[place] coronary artery of [place] heart without angina pectoris TAKE 1 TABLET [...] 25 mg tabletIndicatio ns:Coronary artery disease involving [place] coronary artery of [place] heart without angina pectoris Take 1 tablet (25 mg total) by mouth daily 90 tablet 3 4 05/13/20 25 Active carvediloL (COREG) 12.5 mg tablet TAKE 1 TABLET BY MOUTH TWICE DAILY 180 tablet 2 4 Active Active Problems Problem Noted Date Diagnosed Date Coronary artery disease invo lving te-moak coronary artery of te-[place] heart without angina pectoris 10/28/2019 Ischemic cardiomyopathy [...] file Legal Sex Male 9:37 AM MAINTENANCE MECHANIC MILLWRIGHT Gender Identity Male 11/26/2019 3:10 PM MAINTENANCE MECHANIC MILLWRIGHT Sexual Orientation Not on file Last Filed [...] CDT Plan of Treatment Not on file Procedures Procedure Name Priority Date/Time Associated Diagnosis Comments CARDIOLOGY DOCUMENT SCAN Routine 12/04/2024 9:24 AM MAINTENANCE MECHANIC MILLWRIGHT CARDIOLOGY DOCUMENT SCAN Routine 12/03/2024 9:22 AM MAINTENANCE MECHANIC MILLWRIGHT from Last 3 Months Results * Cardiology Document Scan (12/04/2024 9:24 AM MAINTENANCE MECHANIC MILLWRIGHT) Anatomical Region Laterality Modality Other Doroteo Cheng MD CV CARDIAC SERVICES PROCE DURES Final Result * Cardiology Document Scan (12/03/2024 9:22 AM MAINTENANCE MECHANIC MILLWRIGHT) Anatomical Region Laterality Modality Other Doroteo Cheng MD CV CARDIAC SERVICES PROCE DURES Final Result from Last 3 Months Insurance MEDICARE SOLUTIONS MEDICARE SOLUTIONS [facility] Care Teams Account Technician Relationship Specialty Start Date End Date Naveed Mcintosh MD [address] [place] [address] PCP - General Family Medicine 10/07/19
--- OUTSIDE RECORDS SUMMARY | 2025-01-02 13:38 | XMS_ITS | Clinical Summary ---
Author Organization [facility] [address] Address [address] [place] [address] Care Team Providers Care Automatic Door Mechanic Name Role Phone Naveed Mcintosh MD Primary [...] 80 mg tabletIndicatio ns:Coronary artery disease involving [place] coronary artery of [place] heart without angina pectoris TAKE 1 TABLET [...] 25 mg tabletIndicatio ns:Coronary artery disease involving [place] coronary artery of [place] heart without angina pectoris Take 1 tablet (25 mg total) by mouth daily 90 tablet 3 4 06/21/20 25 Active carvediloL (COREG) 12.5 mg tablet TAKE 1 TABLET BY MOUTH TWICE DAILY 180 tablet 2 4 Active Active Problems Problem Noted Date Diagnosed Date Coronary artery disease invo lving grand [place] coronary artery of grand [place] heart without angina pectoris 10/28/2019 Ischemic cardiomyopathy 10/28/2019 Spinal stenosis 09/26/2015 Pain of right lower extremity 09/26/2015 Notalgia 09/25/2015 Encounters Date Type Department Care Team Description 12/21/2024 Orders Only [facility] Medical Group Cardiology [address] [place] [address] Doroteo Cheng MD from Last 3 Months Surgical History Surgery Date Site/Laterality Comments MANDIBLE [...] Mother May Isidra Paternal Grandfather David Sister Isidra Peterson Social History Tobacco Use Types Packs/Day Years [...] on file Legal Sex Male 9:37 AM ADOBE CQ DEVELOPER Gender Identity Male 11/26/2019 3:10 PM ADOBE CQ DEVELOPER Sexual Orientation Not on file Obstetrics History [...] of 3) 11/21/2017 09/26/2017 Covid-19 Vaccine (3 season) 2024, 01/22/2021 Influenza Vaccine (#1) 2024 09/26/2017, 2015 Procedures Procedure Name Priority Date/Time Associated Diagnosis Comments CARDIOLOGY DOCUMENT SCAN Routine 12/04/2024 9:24 AM ADOBE CQ DEVELOPER CARDIOLOGY DOCUMENT SCAN Routine 12/03/2024 9:22 AM ADOBE CQ DEVELOPER from Last 3 Months Results * Cardiology Document Scan (12/04/2024 9:24 AM ADOBE CQ DEVELOPER) Anatomical Region Laterality Modality Other us Doroteo Cheng MD CV CARDIAC SERVICES PROCE JULIA Final Result * Cardiology Document Scan (12/03/2024 9:22 AM ADOBE CQ DEVELOPER) Anatomical Region Laterality Modality Other us Doroteo Cheng MD CV CARDIAC SERVICES PROCE JULIA Final Result from Last 3 Months Insurance MEDICARE SOLUTIONS MEDICARE SOLUTIONS [facility] Care Teams Automatic Door Mechanic Relationship Specialty Start Date End Date Naveed Mcintosh MD [address] [place] [address] PCP - General Family Medicine 10/07/19
--- OUTSIDE RECORDS SUMMARY | 2025-01-02 13:38 | XMS_ITS | Clinical Summary ---
Author Organization [facility] [id number] [facility] Address [address] [place] [address] Care Team Providers Care Technical Sourcing Recruiter Name Role Phone Naveed Mcintosh MD Primary Care Provider [phone] Allergies No known active allergies Medications meloxicam (MOBIC) 15 mg tablet TAKE 1 TABLET BY MOUTH EVERY DAY 1 9 Active finasteride (PROSCAR) 5 mg tablet TAKE 1 TABLET BY MOUTH EVERY DAY 1 9 Active buPROPion HCl, smoking deter, (ZYBAN) 150 mg Sustained Release 12 hour tablet TAKE 1 TABLET BY MOUTH TWICE A DAY 3 9 Active sertraline (ZOLOFT) 50 mg tablet TAKE 1 TABLET BY MOUTH EVERY DAY 1 9 Active simvastatin (ZOCOR) 10 mg tablet TAKE ONE TABLET BY MOUTH AT BEDTIME. PLEASE CALL TO SCHEDULE ANNUAL APPOINTMENT 1 9 Active tamsulosin (FLOMAX) 0.4 mg capsule TAKE ONE CAPSULE BY MOUTH EVERY DAY 1 9 Active morphine (MS CONTIN) 60 mg Controlled Release tablet TAKE 1 TABLET BY MOUTH TWICE A DAY 0 9 Active CHANTIX 1 mg Tablet TAKE 1 TABLET BY MOUTH TWICE A DAY 0 9 Active PROAIR HFA 90 mcg/actuation inhaler INHALE 2 PUFFS EVERY 4-6 HOURS 1 9 Active SYMBICORT 160-4.5 mcg/actuation HFA Aerosol Inhaler INHALATION 2 PUFFS TWICE A DAY 1 9 Active SPIRIVA RESPIMAT 2.5 mcg/actuation Mist INHALE 2 PUFFS BY MOUTH ONCE DAILY 2 9 Active traZODone (DESYREL) 50 mg tablet Take 50 mg by mouth daily at bedtime. 1 9 Active ibuprofen (MOTRIN) 200 mg tablet Take 200 mg by mouth every 6 hours as needed for Pain, Mild. Active docusate sodium (STOOL SOFTENER) 100 mg capsule Take 100 mg by mouth 2 times daily. Active esomeprazole (NexIUM) 20 mg Capsule, Delayed Release(E.C.) Take 20 mg by mouth daily before breakfast. Active multivitamins-m inerals-lutein (CENTRUM SILVER) Tablet Take 1 Tablet by mouth daily. Active Ellyq-2-ONI-EPA -Fish Oil (FISH OIL) 1,000 mg (120 mg-180 mg) Capsule Take by mouth. Activ e Active Problems Problem Noted Date Diagnosed Date [...] at Not on file Legal Sex Male 1:00 PM CDT Gender Identity Not on file Sexual Orientation Not on file Occupation Industry Job Start Date Job End Date Not on file Not on file Not on file Not on file Last Filed Vital Signs [...] Health Maintenance Due Date Last Done Comments DTAP/TDAP/TD VACCINES (1 - Tdap) 1964 PNEUMOCOCCAL VACCINE 65+ YEARS (1 of 2 - PCV) 03/07/19 63 ZOSTER VACCINE (1 of 2) 1994 RSV VACCINE (60+ or ) (1 - 1-dose 75+ series) 2019 INFLUENZA VACCINE (#1) 2024 Insurance [facility] [id number] Care Teams Technical Sourcing Recruiter Relationship Specialty Start Date End Date Naveed Mcintosh MD [address] [address] PCP - General Family Practice 05/18/19
--- NOTE | 2025-01-02 16:16 | REHSTMBS ---
Assessment and note entered by JOE Long Modified Barium Swallow Evaluation ICD-10 Condition Codes (ST) Dysphagia, unspecified R13.1,Dysphagia, pharyngeal phase R13.13 Feeding Type Recommended Oral Food Consistency Regular, Easy to Chew (7) Liquid Consistency Thin (0) Treatment Recommendations Laryngeal Elevation Exercise,Tongue Base Exercise, Vocal Fold Adduction Exercise ST Clinical Summary The above pt was seen for an OP Modified Barium Swallow; pt reported history of having fluid on his lungs, constant pneumonia/4-5 episodes, & GERD . Pt denied coughing or choking while eating and drinking but stated that a Dr once told him to tuck his chin when he swallows which he hasn't been doing. 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 He denies h/o CVA & stated he did not have radiation after mandible CA. The pt was seated for a lateral view and presented with thin liquid, tsp amounts pudding consistency barium, & a cracker coated with barium pudding in controlled amounts via a spoon. He was also tested with thin liquids in uncontrolled amounts via a cup and a straw. The oral stages were within functional limits. During the pharyngeal stage with the 5ml thin liquid trial, reduced laryngeal elevation & closure was exhibited as evidenced by laryngeal penetration and aspiration during the swallow. Pt responded with a cough but it did not clear the aspirate. Chin tuck was used with 2 more trials which prevented any further instances of laryngeal penetration or aspiration. A pudding trial was attempted without the chin tuck which revealed reduced tongue base retraction as evidenced by (mild) vallecular residue and reduced laryngeal elevation as evidenced by (mild) pyriform sinus residue. The chin tuck was used with all subsequent trials i.e. cracker trial and uncontrolled thin liquid trials via cup and straw which resulted in no further pharyngeal residual. Trace & intermittent shallow laryngeal penetration occurred (& was cleared ) with the uncontrolled thin liquid trials with no further instances of aspiration. Impression: moderate dysphagia Recommendation: regular but easy to chew diet with regular liquids but pt must use chin tuck posture with all eating and drinking to prevent pharyngeal residue and instances of laryngeal penetration and aspiration.
== END 2025-01-02 13:28 | disposition home or self-care (01) ==
LOC: ANHIMG 13:27
PROVIDERS: PCP Family Medicine Adolescent Medicine; Visit Provider Internal Medicine Pulmonary Disease
DX: R13.13 Dysphagia, pharyngeal phase (principal); J18.9 Pneumonia, unspecified organism; J47.9 Bronchiectasis, uncomplicated
CPT/HCPCS: 92611

== ENCOUNTER 2025-01-04 12:09 | Outpatient (CLI) | payer MEDICARE, MEDICAID, SELFPAY ==
--- NOTE | ~2025-01-04 | XR_ITS ---
EXAMINATION: XR chest 2V DATE: 01/04/2025 12:36 INDICATION: Shortness of breath. TECHNIQUE: Frontal and lateral views of the chest were obtained. COMPARISON: Chest 2 views 12/05/2024, chest CT 11/20/2024 FINDINGS: There are lucencies in the lungs, consistent with emphysema. There are airspace opacities i n right mid and lower lung zones and left lower lung zone. There are small bilateral loculated pleura l effusions, right worse than left. No pneumothorax. The heart size is normal. IMPRESSION: 1. Airspace opacities in right mid and lower lung zones and left lower lung zone with worsening in ri ght midlung zone, consistent with atelectasis versus pneumonia. 2. Small bilateral loculated pleural effusions, right worse than left with slight worsening on the ri ght. 3. Emphysema. Reviewed, dictated and finalized at location A. ER TENDER IMPRESSION: 1. Airspace opacities in right mid and lower lung zones and left lower lung zon e with worsening in right midlung zone, consistent with atelectasis versus pneu monia. 2. Small bilateral loculated pleural effusions, right worse than left with slig ht worsening on the right. 3. Emphysema.
--- OUTSIDE RECORDS SUMMARY | 2025-01-04 12:26 | XMS_ITS | Clinical Summary ---
Author Organization [facility] [address] Address [address] [place] [address] Care Team Providers Care Citrus Fruit Packer Name Role Phone Naveed Mcintosh MD Primary [...] 80 mg tabletIndicatio ns:Coronary artery disease involving enterprise coronary artery of enterprise heart without angina pectoris TAKE 1 TABLET [...] 25 mg tabletIndicatio ns:Coronary artery disease involving enterprise coronary artery of enterprise heart without angina pectoris Take 1 tablet (25 mg total) by mouth daily 90 tablet 3 4 06/21/20 25 Active metoprolol XL (TOPROL-XL) 50 mg extended release tablet Take 1 tablet (50 mg total) by mouth nightly at bedtime. 5 Active LORazepam (ATIVAN) 0.5 mg tablet Take by mouth 2 (two) times a day as needed 5 Active carvediloL (COREG) 12.5 mg tablet TAKE 1 TABLET BY MOUTH TWICE DAILY 180 tablet 2 4 01/04/20 25 Discontinu ed(Alterna te therapy) Active Problems Problem Noted Date Diagnosed Date Coronary artery disease invo lving enterprise coronary artery of enterprise heart without angina pectoris 10/28/2019 Ischemic cardiomyopathy 10/28/2019 Spinal stenosis 09/26/2015 Pain of right lower extremity 09/26/2015 Notalgia 09/25/2015 Encounters Date Type Department Care Team Description 01/04/2025 11:30 AM PROTECTIVE SIGNAL REPAIRER Office Visit [facility] Medical [facility] Cardiology [address] [facility] [address] [place] [address] Roya Rosario NP Coronary artery disease involving enterprise coronary artery of enterprise heart without angina pectoris (Primary Dx); Ischemic cardiomyopathy; Shortness of breath 12/21/2024 Orders Only [facility] Medical [facility] Cardiology [address] [place] [address] Doroteo Cheng MD from Last 3 Months [...] Brother 2 Bill COPD Brother 3 Stevan Pelaez abuse Father Russell Cancer Father Russell Family history of malignant neoplasm - (Added by TW Conv) Diabetes Mother May Isidra Family history of diabetes mellitus - (Added by TW Conv) Heart disease Mother May Isidra Family history of cardiac disorder - (Added by TW Conv) Miscarriages / Stillbirths Mother May Isidra Heart attack Paternal Grandfather David Obesity Sister Isidra Peterson Relation Name Status Comments Brother 1 Alvaro Brother 2 Bill Brother 3 Stevan Father Russell Mother May Isidra Paternal Grandfather David Peterson Social History Tobacco Use Types Packs/Day [...] on file Legal Sex Male 9:37 AM PROTECTIVE SIGNAL REPAIRER Gender Identity Male 11/26/2019 3:10 PM PROTECTIVE SIGNAL REPAIRER Sexual Orientation Not on file Obstetrics History Last Filed Vital Signs Vital Sign Reading Time Taken Comments Blood Pressure 110/60 01/04/2025 11:39 AM PROTECTIVE SIGNAL REPAIRER Pulse 76 01/04/2025 11:39 AM PROTECTIVE SIGNAL REPAIRER Temperature - - Respiratory Rate - - Oxygen Saturation 87% 01/04/2025 11:39 AM PROTECTIVE SIGNAL REPAIRER Inhaled Oxygen Concentration - - Weight 85.3 kg (188 lb) 01/04/2025 11:39 AM PROTECTIVE SIGNAL REPAIRER Height 180.3 cm (5' 11 ) 01/04/2025 11:39 AM PROTECTIVE SIGNAL REPAIRER Body Mass Index 26.22 01/04/2025 11:39 AM PROTECTIVE SIGNAL REPAIRER Plan of Treatment Health Maintenance Due Date [...] CARDIOLOGY DOCUMENT SCAN Routine 12/04/2024 9:24 AM PROTECTIVE SIGNAL REPAIRER CARDIOLOGY DOCUMENT SCAN Routine 12/03/2024 9:22 AM PROTECTIVE SIGNAL REPAIRER from Last 3 Months Results * Cardiology Document Scan (12/04/2024 9:24 AM PROTECTIVE SIGNAL REPAIRER) Anatomical Region Laterality Modality Other Doroteo Cheng MD CV CARDIAC SERVICES PROCE DURES Final Result * Cardiology Document Scan (12/03/2024 9:22 AM PROTECTIVE SIGNAL REPAIRER) Anatomical Region Laterality Modality Other Doroteo Cheng MD CV CARDIAC SERVICES PROCE DURES Final Result from Last 3 Months Insurance MEDICARE SOLUTIONS MEDICARE SOLUTIONS [employer] Care Teams Citrus Fruit Packer Relationship Specialty Start Date End Date Naveed Mcintosh MD [address] [place] [address] PCP - General Family Medicine 10/07/19
--- OUTSIDE RECORDS SUMMARY | 2025-01-04 12:26 | XMS_ITS | Referral Summary ---
Author Organization [facility] [address] [place] [address] [address] Address [address] [place] [address] Care Team Providers Care Sewing Machine Mechanic Name Role Phone Naveed Mcintosh MD Primary Care Prov ider Encounters Date Type Department Care Team Description 01/04/2025 11:30 AM NECKTIE CENTRALIZING MACHINE OPERATOR Office Visit [facility] Medical Group Cardiology [address] [facility] [address] [place] [address] Roya Rosario NP Coronary artery disease involving [place] coronary artery of [place] heart without angina pectoris (Primary Dx); Ischemic cardiomyopathy; Shortness of breath 12/21/2024 Orders Only [facility] Medical [facility] Cardiology [address] [facility] [address] [place] [address] Doroteo Cheng MD from Last [...] 80 mg tabletIndicatio ns:Coronary artery disease involving [place] coronary artery of [place] heart without angina pectoris TAKE 1 TABLET [...] 25 mg tabletIndicatio ns:Coronary artery disease involving [place] coronary artery of [place] heart without angina pectoris Take 1 tablet (25 mg total) by mouth daily 90 tablet 3 4 05/13/20 25 Active metoprolol XL (TOPROL-XL) 50 mg [...] Diagnosed Date Coronary artery disease invo lving [place] coronary artery of [place] heart without angina pectoris 10/28/2019 Ischemic cardiomyopathy [...] on file Legal Sex Male 9:37 AM NECKTIE CENTRALIZING MACHINE OPERATOR Gender Identity Male 11/26/2019 3:10 PM NECKTIE CENTRALIZING MACHINE OPERATOR Sexual Orientation Not on file Last Filed Vital Signs Vital Sign Reading Time Taken Comments Blood Pressure 110/60 01/04/2025 11:39 AM NECKTIE CENTRALIZING MACHINE OPERATOR Pulse 76 01/04/2025 11:39 AM NECKTIE CENTRALIZING MACHINE OPERATOR Temperature - - Respiratory Rate - - Oxygen Saturation 87% 01/04/2025 11:39 AM NECKTIE CENTRALIZING MACHINE OPERATOR Inhaled Oxygen Concentration - - Weight 85.3 kg (188 lb) 01/04/2025 11:39 AM NECKTIE CENTRALIZING MACHINE OPERATOR Height 180.3 cm (5' 11 ) 01/04/2025 11:39 AM NECKTIE CENTRALIZING MACHINE OPERATOR Body Mass Index 26.22 01/04/2025 11:39 AM NECKTIE CENTRALIZING MACHINE OPERATOR Plan of Treatment Not on file Procedures Procedure Name Priority Date/Time Associated Diagnosis Comments CARDIOLOGY DOCUMENT SCAN Routine 12/04/2024 9:24 AM NECKTIE CENTRALIZING MACHINE OPERATOR CARDIOLOGY DOCUMENT SCAN Routine 12/03/2024 9:22 AM NECKTIE CENTRALIZING MACHINE OPERATOR from Last 3 Months Results * Cardiology Document Scan (12/04/2024 9:24 AM NECKTIE CENTRALIZING MACHINE OPERATOR) Anatomical Region Laterality Modality Other us Doroteo Cheng MD CV CARDIAC SERVICES PROCE DURES Final Result * Cardiology Document Scan (12/03/2024 9:22 AM NECKTIE CENTRALIZING MACHINE OPERATOR) Anatomical Region Laterality Modality Other us Doroteo Cheng MD CV CARDIAC SERVICES PROCE DURES Final Result from Last 3 Months Insurance MEDICARE SOLUTIONS [facility] MEDICARE Address: [facility] [address] [place] [address] MEDICARE SOLUTIONS [facility] MEDICARE Address: [address] [address] [place] [address] [employer] Care Teams Sewing Machine Mechanic Relationship Specialty Start Date End Date Naveed Mcintosh MD [address] [place] [address] PCP - General Family Medicine 10/07/19
--- OUTSIDE RECORDS SUMMARY | 2025-01-04 12:26 | XMS_ITS | Clinical Summary ---
Author Organization [employer] [id number] [facility] Address [address] [place] [address] Care Team Providers Care Senior Commissary Agent Name Role Phone Naveed Mcintosh MD Primary Care Provider [phone] Allergies No known active allergies Medications meloxicam [...] Take 1 Tablet by mouth daily. Active [id number] -Fish Oil (FISH OIL) 1,000 mg (120 [...] series) 2019 INFLUENZA VACCINE (#1) [address] [facility] [id number] Care Teams Senior Commissary Agent Relationship Specialty Start Date End Date Naveed Mcintosh MD [address] [address] PCP - General Family Practice 05/18/19
--- OUTSIDE RECORDS SUMMARY | 2025-01-04 12:26 | XMS_ITS | Encounter Summary ---
Author Organization [facility] Address [address] [place] [address] Care Team Providers Care Supervising Deputy Name Role Phone Naveed Mcintosh MD Primary Care Prov ider Reason for Visit * Reason Comments Hospital Follow Up Encounter Details Date Type Department Care Team (Late st Contact Info) Description 01/04/2025 11:30 AM CON[employer]ATOR [employer]S Office Visit [facility] Cardiology [address] [address] [address] [place] [id number] Roya Rosario NP [address] [place] [address] Coronary artery disease involving [place] coronary artery of [place] heart without angina pectoris (Primary Dx); Ischemic cardiomyopathy; Shortness of breath Social History Tobacco Use Types Packs/Day Years [...] on file Legal Sex Male 9:37 AM CONSERVATOR [employer]ACTS Gender Identity Male 11/26/2019 3:10 PM [employer]ATOR [employer] Sexual Orientation Not on file documented as of this encounter Last Filed Vital Signs Vital Sign Reading Time Taken Comments Blood Pressure 110/60 01/04/2025 11:39 AM CONSERVATOR [employer]IFACTS Pulse 76 01/04/2025 11:39 AM CONSERVATOR [employer]ACTS Temperature - - Respiratory Rate - - Oxygen Saturation 87% 01/04/2025 11:39 AM CONSERVATOR ARTIFACTS Inhaled Oxygen Concentration - - Weight 85.3 kg (188 lb) 01/04/2025 11:39 AM CONSERVATOR ARTIFACTS Height 180.3 cm (5' 11 ) 01/04/2025 11:39 AM CONSERVATOR ARTIFACTS Body Mass Index 26.22 01/04/2025 11:39 AM CONSERVATOR [employer]S documented in this encounter Progress Notes * Roya Rosario, KALPESH - 01/04/2025 11:30 AM CST [facility] Cardiology [address] [place] [address] Date of Visit: 01/04/2025 Patient ID: Russell Morse 1945 Chief Complaint: Russell Morse is a 79 y.o. male who comes to the office for routine follow up for coronary artery disease and ischemic cardiomyopathy History of Present Illness: Russell Morse is a 79 y.o. male with a past medical history of coronary artery disease. This is a patient who presented to [facility] in August of 2019 with ischemic chest [...] described intervention dual anti-platelet therapy was discontinued. He was hospitalized back in September of 2021 shortness of breath related to coronavirus. 03/03/[address] Clemons: He presents today for 6 month follow-up appointment. Heindicates that he has not had any obvious cardiac problems he was seriously ill last month and was hospitalized at [facility]. 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 After the hospital stay he was sent to rehab for a while he is now back home and is still recovering from that. 09/17/2023 office visit with [facility] [employer]: he is here for routine follow up and denies any concerns. He denies chest pain. His solar photovoltaic electrician (Dr. Gottlieb) who treats him for COPD just prescribed him home oxygen. 05/13/2024 office visit with [facility]: He is here for routine follow-up accompanied [...] little bit of his heart attack pain. 01/04/2025 follow-up with [facility] - Russell Morse comes to the office today for a follow up visit. He is complaining of increased shortness of breath. Per his daughter's report, he recently underwent a swallow study which revealed aspiration. He also has a sick family member who lives in his home and suspects she has the flu. Complaining of sharp, pleuritic type right lateral chest discomfort with deep breathing. He denies any substernal chest pain, palpitations, swelling. Records that I personally reviewed on the day of this visit include: (the interpretation is outlined in the HPI above) I have also reviewed: allergies, current medications, past family history, past medical history, past social history, past surgical history and problem list Review of Systems Constitutional: Negative for fever, malaise/fatigue, night sweats, weight gain and weight loss. HENT: Negative for hearing loss. Eyes: Negative for blurred vision and visual disturbance. Cardiovascular: Negative for chest pain, claudication, dyspnea on exertion, irregular heartbeat, leg swelling, near-syncope, orthopnea, palpitations, paroxysmal nocturnal dyspnea and syncope. Respiratory: Positive for cough and shortness of breath. Negative for sleep disturbances due to breathing, snoring and wheezing. Hematologic/Lymphatic: Negative for bleeding problem. Musculoskeletal: Negative for muscle cramps and muscle weakness. Gastrointestinal: Negative for abdominal pain, change in bowel habit, diarrhea, nausea and vomiting. Genitourinary: Negative for hematuria. Neurological: Negative for dizziness and headaches. Vital Signs: BP 110/60 (BP Location: Left arm, Patient Position: Sitting) Pulse 76 Ht 180.3 cm (5' 11 ) Wt85.3 kg (188 lb) SpO2 (!) 87% BMI 26.22 kg/m?? Body mass index is 26.22 kg/m??. Physical Exam Vitals reviewed. Constitutional: General: He is not in acute distress. HENT: Head: Normocephalic and atraumatic. Eyes: Extraocular Movements: Extraocular movements intact. Conjunctiva/sclera: Conjunctivae normal. Neck: Vascular: No carotid bruit. Cardiovascular: Rate and Rhythm: Normal rate and regular rhythm. Heart sounds: Normal heart sounds. Pulmonary: Effort: Pulmonary effort is normal. No respiratory distress. Breath sounds: Rhonchi present. Comments: On chronic 3L O2 Abdominal: General: Bowel sounds are normal. Palpations: Abdomen is soft. Musculoskeletal: General: Normal range of motion. Cervical back: Normal range of motion and neck supple. Skin: General: Skin is warm and dry. Neurological: Mental Status: He is alert and oriented to person, place, and time. Allergies Allergen Reactions Pollen Extracts Unknown Seasonale [...] times a day, Disp: , Rfl: [address] (NexIUM) 20 mg capsule, Take [...] capsule (290 mcg total), Disp: , Rfl: LORazepam (ATIVAN) 0.5 mg tablet, Take by mouth 2 (two) times a day as needed, Disp: , Rfl: losartan (COZAAR) 25 mg tablet, Take 1 tablet (25 mg total) by mouth daily, Disp: 90 tablet, Rfl: 3 metoprolol XL (TOPROL-XL) 50 mg extended release tablet, Take 1 tablet (50 mg total) by mouth nightly at bedtime., Disp: , Rfl: morphine ER (MS CONTIN) [...] Date BUNSER 11 10/28/2019 CREATININE 0.97 10/28/2019 Assessment: Diagnoses and all orders for this visit: Coronary artery disease involving [place] coronary artery of [place] heart without angina pectoris (Primary) Ischemic cardiomyopathy Shortness of breath - X-ray chest 2 views; Future In regards to his coronary artery disease, this is stable. He is not reporting any anginal symptoms. Continue with ASA, high intensity statin. He is well compensated, appears euvolemic on exam. Continue current medical regimen without change. In regards to his shortness of breath I am suspicious of pneumonia as he had evidence of aspirationon recent swallow evaluation. He also lives with a family member who is sick with some sort of respiratory illness. Will check a CXR. I instructed him to go to the ER if his shortness of breath worsens. Would defer any antibiotic management to his PCP, Dr. Orellana if CXR shows pneumonia. He should return to the office to see Dr. Clemons in 6 months or earlier if needed. Roya MANN- Nurse Practitioner with [facility] This note is dictated and transcribed using [employer]. Vessel Specialist variancesmay occur. Despite proofreading, typographical errors may occur. [employer] documented in this encounter Plan of Treatment Scheduled Orders Name Type Priority Associated Diagnoses Orde r Schedule X-ray chest 2 views Imaging Schedule Routine, Read Routine (OP Routine) Shortness of breath Expected: 01/04/2025, Expires: 01/04/2026 documented as of this encounter Visit Diagnoses Diagnosis Coronary artery disease involving [place] coronary artery of [place] heart without angina pectoris- Primary Ischemic cardiomyopathy Other specified forms of chronic ischemic heart disease Shortness of breath documented in this encounter Discontinued Medications Medication Sig Discontinue Reason Start Date End Da te carvediloL (COREG) 12.5 mg tablet TAKE 1 TABLET BY MOUTH TWICE DAILY Alternate therapy 07/27/2024 01/04/2025 documented as of this encounter Historical Medications * This list may reflect changes made after this encounter. LORazepam (ATIVAN) 0.5 mg tablet Take by mouth 2 (two) times a day as needed 12/13/2024 metoprolol XL (TOPROL-XL) 50 mg extended release tablet Take 1 tablet (50 mg total) by mouth nightly at bedtime. 12/29/2024 added in this encounter Care Teams Supervising Deputy Relationship Specialty Start Date End Date Naveed Mcintosh MD [address] [place] [address] PCP - General Family Medicine 10/07/19 documented as of this encounter
== END 2025-01-04 12:10 | disposition home or self-care (01) ==
PROVIDERS: PCP Family Medicine Adolescent Medicine; Visit Provider Nurse Practitioner
DX: J90 Pleural effusion, not elsewhere classified (principal); J43.9 Emphysema, unspecified
CPT/HCPCS: 71046

== ENCOUNTER 2025-01-24 12:34 | Outpatient (CLI) | payer MEDICARE, SELFPAY ==
[2025-01-24 14:18] LABS: Erythrocyte Sedimentation Rate 134 mm/hr (0-20)
[2025-01-24 22:39] LABS: Rheumatoid Factor 12.9 IU/ML (<12)
[2025-01-25 16:43] LABS: Immunoglobulin A 212 mg/dL (70-320); Immunoglobulin G 693 mg/dL (600-1540); Immunoglobulin M 90 mg/dL (50-300)
[2025-01-26 15:49] LABS: Immunoglobulin E 691 kU/L (<OR=114)
[2025-01-26 17:13] LABS: NIL 0.01 IU/mL; Quantiferon TB Plus, 1T NEGATIVE (NEGATIVE); TB2-NIL 0.01 IU/mL
== END 2025-01-24 12:35 | disposition home or self-care (01) ==
PROVIDERS: PCP Family Medicine Adolescent Medicine; Visit Provider Internal Medicine Pulmonary Disease
DX: J45.909 Unspecified asthma, uncomplicated (principal); J47.9 Bronchiectasis, uncomplicated; J84.9 Interstitial pulmonary disease, unspecified; J18.9 Pneumonia, unspecified organism; R91.1 Solitary pulmonary nodule
CPT/HCPCS: 36415; 82085; 82784; 82785; 85652; 86430; 86480

== ENCOUNTER 2025-04-25 15:47 | Inpatient (IN) | payer MEDICARE, SELFPAY ==
[2025-04-25] VITALS (10 sets, daily range): BP systolic 102–136; BP diastolic 57–61; PULSE 85–90; RESP 13–24; TEMP 37.2–37.7; O2SAT 91–98; BMI 22.1
--- NOTE | ~2025-04-25 | XR_ITS ---
XR chest 1V portable 04/25/2025 16:38 Indication: Shortness of breath Procedure: AP portable chest Comparison: Comparison to multiple prior studies sequentially, with oldest reviewed study dated 10/25. Findings: Heart size normal. Extensive bilateral airspace disease has progressed since 01/04/2025. Sma ll right pleural effusion. No pneumothorax. There is atherosclerosis of the aorta. Impression: 1: Extensive bilateral airspace disease may represent edema and/or pneumonia. 2: Small right pleural effusion. Reviewed, dictated and finalized at location A. Impression: 1: Extensive bilateral airspace disease may represent edema and/or pneumonia. 2: Small right pleural effusion.
--- NOTE | ~2025-04-25 | CT_ITS ---
EXAMINATION: CTA chest PE protocol DATE: 04/26/2025 13:46 CDT INDICATION: Shortness of breath TECHNIQUE: Computed tomographic angiography (CTA) of the chest was performed with 100 mL Omnipaque-35 0 intravenous contrast. The dose-length product was 256.22 mGy-cm. Maximum intensity projection 3D-re constructions of the aorta and other arteries were constructed by the technologist on a separate work station. Automated exposure control and iterative reconstruction technique were employed. COMPARISON: Chest x-ray dated 04/25/[address] dated 11/20/2024. FINDINGS: Small right pleural effusion. Trace left pleural effusion. There is mediastinal lymphadenop athy. There is right hilar lymphadenopathy. There is atherosclerosis of the aorta and coronary arteri es. Small hiatal hernia. Heart size normal. Pulmonary arteries are enlarged, consistent with pulmonar y hypertension. Study is technically adequate without evidence for pulmonary embolism. There is patchy bilateral airspace disease of the right upper, right middle and bilateral lower lobes , consistent with multifocal pneumonia. No endobronchial lesions. There is emphysema. No suspicious p ulmonary nodules or masses. Mild thoracic spondylosis. No focal lytic or blastic lesions. IMPRESSION: 1. Multifocal airspace disease, consistent with pneumonia. 2: Bilateral pleural effusions, right greater than left. 3: Mediastinal lymphadenopathy, likely reactive. 4.: Pulmonary artery enlargement, consistent with pulmonary hypertension. 5: Emphysema. Reviewed, dictated and finalized at location A.
--- NOTE | ~2025-04-25 | XR_ITS ---
MODIFIED ESOPHAGRAM HISTORY: Multiple pneumonias. TECHNIQUE: Modified barium esophagram was performed on 04/27/2025. I administered fluoroscopy and perfo rmed the exam with speech pathologist. Patient was seated for lateral fluoroscopic imaging for inges tion of thin liquids, pudding, solids and quantified amounts, followed by thin liquids in uncontrolle d amounts. This was recorded on tape. A single fluoroscopic spot image was also recorded. The DAP for this procedure was 1.266 Gycm2. The amount of fluoroscopy time used during this procedure was 2.3 mi nutes. FINDINGS: Oral stage: Adequate function. Pharyngeal stage: There is laryngeal elevation and adduction. Reduced tongue base retraction and phar yngeal squeeze. There is trace vallecular and piriform sinus residue. There pharyngeal wall residue. There is laryngeal penetration without aspiration with uncontrolled thin liquids from a cup. There is cricopharyngeal dysfunction. Cervical/esophageal stage: Adequate function. IMPRESSION: Pharyngeal dysphagia with laryngeal penetration without aspiration with uncontrolled thin liquids. Please correlate with speech pathologist findings and specific feeding recommendations. Reviewed, dictated and finalized at location A. IMPRESSION: Pharyngeal dysphagia with laryngeal penetration without aspiration with uncontrolled thin liquids. Please correlate with speech pathologist findi ngs and specific feeding recommendations.
--- NOTE | 2025-04-25 16:03 | ECG_ITS ---
Test Date: 2025-04-25 16:06:24 Measurements Intervals [place] Rate: 86 P: 34 WI: 186 QRS: -29 QRSD: 110 T: 25 QT: 372 QTc: 447 Interpretive Statements SINUS RHYTHM POSSIBLE LEFT ATRIAL ENLARGEMENT INCOMPLETE RIGHT BUNDLE BRANCH BLOCK DELAYED PRECORDIAL R/S TRANSITION BORDERLINE ECG Compared to ECG 12/02/2024 08:18:08 HEART RATE HAS DECREASED Electronically Signed On 04-25-2025 16:13:27 CDT by Tim Mary D.O.
--- NOTE | 2025-04-25 16:12 | ED_ITS ---
HPI - General Adult General Chief complaint: Shortness of Breath/Dyspnea Stated complaint: resp. distress History of Present Illness HPI narrative: 80-year-old male with history of COPD with 6 L of oxygen per nasal cannula at baseline presents to the emergency department for evaluation for worsening shortness of breath. Patient does follow-up with Dr. 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 Patient is supposed to have follow-up with [facility] infectious disease next week. Today family noticed the patient was altered and confused and he was febrile at that time. 2 hours prior to arrival patient did receive some Tylenol for fever and upon arrival emergency department patient was afebrile and appeared to be back at his normal baseline. When family came to the emergency department they agreed that this is the patient's normal baseline. Patient is saturating well and has normal 6 L. Related Data Home Medications ?Medication ?Instructions ?Recorded ?Confirmed ?Last Taken ?Type acetaminophen 500 mg tablet 1,000 mg PO Q6H PRN Pain 03/18/23 02/01/25 11/20/24 History (Tylenol Extra Strength) multivitamin 1 tablet PO DAILY 03/18/23 02/01/25 11/20/24 History cetirizine 10 mg capsule (Zyrtec) 10 mg PO DAILY PRN allergies 06/13/23 02/01/25 11/20/24 History simethicone 125 mg capsule (Gas-X 125 mg PO PRN 11/21/24 02/01/25 Unknown History Extra Strength) baclofen 10 mg tablet 10 mg PO Q12H PRN muscle spasm 12/02/24 02/01/25 Unknown History Allergies Allergy/AdvReac Type Severity Reaction Status Date / Time clonazepam AdvReac Severe Drowsy Verified 02/01/25 15:46 roflumilast (From Daliresp) AdvReac Severe Diarrhea Verified 02/01/25 15:46 Review of Systems 2 Review of Systems: All systems reviewed & are unremarkable except as noted in HPI and below PMFSH Past Medical History Medical History Congestive heart failure Colon polyps Chronic obstructive pulmonary disease Gastroesophageal reflux disease Osteoarthritis Chronic kidney disease, stage 3 Benign prostatic hyperplasia Cancer of lower jaw bone (1986) Vitamin D deficiency Essential hypertension Depression Chronic hypoxic respiratory failure, on home oxygen therapy Erythema multiforme Essential tremor Hyperlipidemia 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 History of tobacco use Polio (1952) Other chronic pain Aortic stenosis Mild - Echo 05/15/2022 NSTEMI (non-ST elevated myocardial infarction) (08/2019) Normal colonoscopy (04/2015) Ischemic cardiomyopathy Echocardiogram 09/2021: Mildly reduced left ventricular systolic function EF of 45-50%, grade 1 diastolic dysfunction, inferior wall inferior septal wall basal inferior wall and mid inferior lateral wall hypokinesis with mild left atrial and large Atherosclerotic heart disease of [place] coronary artery without angina pectoris Abdominal aortic aneurysm, without rupture 02/07 CT Restless legs syndrome Spinal stenosis, lumbar region without neurogenic claudication Surgical History Surgical History History of tonsillectomy and adenoidectomy History of repair of rotator cuff bilateral History of colonoscopy with polypectomy History of bowel resection due to obstruction Presence of coronary angioplasty implant and graft History of coronary artery stent placement X2 History of mandibular surgery (1986) reconstructive surgery right mandible related to cancer Family History Family History Mother Diabetes mellitus Acute myocardial infarction Father Colon cancer COPD (chronic obstructive pulmonary disease) Sibling Colon cancer Acute myocardial infarction Lung cancer COPD (chronic obstructive pulmonary disease) Sibling COPD (chronic obstructive pulmonary disease) Sibling Congestive heart failure Sibling Dementia Social History Social History Social History: Surrogate medical decision maker: Code status: Modified code, no intubation. Smoking packs per day: 2 Smoking cigarettes per day: 40.0 Years smoked: 40 Smoking pack-years: 80.00 Smoking status: Former smoker Second hand tobacco smoke exposure: No Alcohol intake: former Substance use: never Substance use type: does not use Other substance usage details: quit alcohol in 2010 Last use: Last alcohol use 2010 Do You Feel Safe in your Home?: Yes Lack of Transportation: YES Lack of Food: Never True Current Housing: I Have Housing Concerned About Future Housing: No Difficulty Paying Gas/Electric Bills: No Difficulty Paying for Meds: No Currently Unemployed: No Education: Don't Know Difficulty w/ Childcare or Family Care: No Living arrangements: with family Additional living arrangements comments: . Lives in [place] with son and [id number]. 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 HEAD: normocephalic, atraumatic. EYES: PERRLA/EOMI, conjunctivae clear. NOSE: Normal no drainage EARS:TMS clear with good light reflex. THROAT: Pharynx clear, no exudate. NECK: Supple. No adenopathy, no masses. RESPIRATORY: Airway patent, respirations nonlabored. Clear to auscultation bilaterally, no rales, rhonchi, wheezing. CARDIOVASCULAR: Regular rate and rhythm without murmurs rubs or gallops. ABDOMINAL: Soft, nontender, nondistended, normal bowel sounds MUSCULOSKELETAL: Moves all extremities. Strength/ROM intact, No edema, No calf tenderness. NEURO: Alert. Cranial nerves II through XII intact. Good gait. Good coordination SKIN: Warm, dry. Normal Color Course Vital Signs Vital signs: Vital Signs Temperature 98.9 F 04/25/25 15:45 Pulse Rate 88 04/25/25 15:45 Respiratory Rate 13 04/25/25 15:45 Blood Pressure 102/61 04/25/25 15:45 Pulse Oximetry 96 04/25/25 15:45 Oxygen Delivery Room Air 04/25/25 15:45 Temperature 99.8 F H 04/25/25 17:42 Pulse Rate 85 04/25/25 19:29 Respiratory Rate 16 04/25/25 19:29 Blood Pressure 136/59 L 04/25/25 18:28 Pulse Oximetry 98 04/25/25 19:29 Oxygen Delivery Nasal Cannula 04/25/25 15:57 Oxygen Flow Rate 6 04/25/25 15:57 Medical Decision Making [facility] Narrative Medical decision making narrative: 80-year-old male present to the emergency department for evaluation for worsening shortness of breath. Patient arrived on 15 L by face mask but was switched back to his home 6 L. Patient does have an ABG which showed a pH is 7.4 a pCO2 of 45 and a PO2 of 81.5. Patient is currently afebrile but did have a reported fever at home and does have a leukocytosis of 15.3 with a hemoglobin of 9.8. CMP has no significant acute abnormalities, patient's proBNP is 396. Patient's x-ray of concerning for edema versus pneumonia. Strong concern for pneumonia at this time so blood cultures ordered, patient was treated with IV Rocephin and IV azithromycin, and patient was also treated with 125 of IV Solu- Medrol. 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 Gottlieb for pulmonology was consulted. He did request the patient be transferred to [facility], did discuss the case with [facility] and patient was accepted but they state they will not be a bed available for multiple days. The hospitalist at [facility] did consult our Infectious Disease pharmacist and Dr. Gottlieb will be consulted and patient will be kept here until a bed is available at [facility] or until patient is able to be discharged home and potentially have outpatient follow-up with infectious disease. Patient and family were updated on the results of workup plan for admission. All questions concerns were addressed. Differential Diagnosis Differential Diagnosis: Pneumonia, COPD, mac, PE, COVID, RSV, influenza Vital Signs Vital Signs: Vital Signs Temperature 98.9 F 04/25/25 15:45 Pulse Rate 88 04/25/25 15:45 Respiratory Rate 13 04/25/25 15:45 Blood Pressure 102/61 04/25/25 15:45 Pulse Oximetry 96 04/25/25 15:45 Oxygen Delivery Room Air 04/25/25 15:45 Temperature 99.8 F H 04/25/25 17:42 Pulse Rate 85 04/25/25 19:29 Respiratory Rate 16 04/25/25 19:29 Blood Pressure 136/59 L 04/25/25 18:28 Pulse Oximetry 98 04/25/25 19:29 Oxygen Delivery Nasal Cannula 04/25/25 15:57 Oxygen Flow Rate 6 04/25/25 15:57 Lab Data Lab results reviewed: Yes I reviewed the patient's lab results. 04/25/25 15:55 04/25/25 15:55 Labs: Lab Results 04/25/25 04/25/25 04/25/25 Range/Units 15:55 16:04 16:08 WBC 15.3 H (4.5-10.0) K/mm3 RBC 3.39 L (4.6-6.20) M/mm3 Hgb 9.8 L (14.0-18.0) g/dL Hct 32.5 L (42.0-52.0) % MCV 95.9 (80-100) fl MCH 28.9 (26-34) pg MCHC 30.2 L (32-36) g/dl RDW 14.2 (11.5-14.5) % Plt Count 212 (150-375) k/mm3 MPV 10.5 H (7.4-10.4) fl Immature Gran % (Auto) Not Reportable Neut % (Auto) Not Reportable Lymph % (Auto) Not Reportable [place] % (Auto) Not Reportable Eos % (Auto) Not Reportable Baso % (Auto) Not Reportable Lymph # (Auto) Not Reportable [place] # (Auto) Not Reportable Eos # (Auto) Not Reportable Baso # (Auto) Not Reportable Abs Immat Gran (auto) Not Reportable Absolute Neuts (auto) Not Reportable Absolute Nucleated RBC Not Reportable Total Counted 100 Neutrophils % (Manual) 88 H (46-73) % Band Neutrophils % 2 (0-6) % Lymphocytes % (Manual) 4.0 L (18-44) % Monocytes % (Manual) 6 (3-9) % Nucleated RBC % Not Reportable Abs Neuts (Manual) 13.77 H (1.3-6.7) K/mm3 Abs Lymphs (Manual) 0.61 L (1.1-4.5) K/mm3 Abs Monocytes (Manual) 0.91 H (0.1-0.90) K/mm3 Nucleated RBCs 2 % Platelet Estimate Adequate (Adequate) Hypochromasia 1+ Schistocytes None seen PT 16.2 H (11.1-14.7) Seconds INR 1.3 APTT 38.0 H (22.3-36.8) Seconds Methemoglobin 0.0 (0-1.5) %THb Sodium 137 (137-145) mmol/L Potassium 4.7 (3.4-5.0) mmol/L Chloride 100 (98-107) mmol/L Carbon Dioxide 31 H (22-30) mmol/L Anion Gap 6 (4-12) mmol/L BUN 27 H D (9-20) mg/dL Creatinine 1.08 (0.7-1.3) mg/dL Estim Creat Clear Calc 51 ml/min Estimated GFR > 60 (59 - ) Glucose 134 H (65-110) mg/dL Calcium 9.1 (8.4-10.2) mg/dL Total Bilirubin 0.6 (0.2-1.3) mg/dL AST 48 (17-59) U/L ALT 30 (6-50) U/L Alkaline Phosphatase 410 H (38-126) U/L NT-Pro-B Natriuret Pep 396 H (19.9-100) pg/mL Total Protein 7.2 (6.3-8.2) g/dL Albumin 3.6 (3.5-5.1) g/dL Urine Color (Yellow) Urine Appearance (Clear) Urine pH (5.0-9.0) Ur Specific [place] (1.001-1.035) Urine Protein (Negative) mg/dL Urine Glucose (UA) (Negative) mg/dL Urine Ketones (Negative) mg/dL Ur Blood (Man) (Negative) Urine Nitrate (Negative) Urine Bilirubin (Negative) Urine Urobilinogen (<2.0) mg/dL Leukocyte Esterase Rfl (Negative) ROBIN/UL Urine RBC (0-2) /hpf Urine WBC (0-3) /hpf Ur Squamous Epith Cells (Few) /hpf Urine Bacteria /hpf Urine Casts Influenza A (RT-PCR) Negative (Negative) Influenza B (RT-PCR) Negative (Negative) RSV (RT-PCR) Negative (Negative) SARS-CoV-2 RNA (RT-PCR) Negative (Negative) 04/25/25 Range/Units 17:47 WBC (4.5-10.0) K/mm3 RBC (4.6-6.20) M/mm3 Hgb (14.0-18.0) g/dL Hct (42.0-52.0) % MCV (80-100) fl MCH (26-34) pg MCHC (32-36) g/dl RDW (11.5-14.5) % Plt Count (150-375) k/mm3 MPV (7.4-10.4) fl Immature Gran % (Auto) Neut % (Auto) Lymph % (Auto) [place] % (Auto) Eos % (Auto) Baso % (Auto) Lymph # (Auto) [place] # (Auto) Eos # (Auto) Baso # (Auto) Abs Immat Gran (auto) Absolute Neuts (auto) Absolute Nucleated RBC Total Counted Neutrophils % (Manual) (46-73) % Band Neutrophils % (0-6) % Lymphocytes % (Manual) (18-44) % Monocytes % (Manual) (3-9) % Nucleated RBC % Abs Neuts (Manual) (1.3-6.7) K/mm3 Abs Lymphs (Manual) (1.1-4.5) K/mm3 Abs Monocytes (Manual) (0.1-0.90) K/mm3 Nucleated RBCs % Platelet Estimate (Adequate) Hypochromasia Schistocytes PT (11.1-14.7) Seconds INR APTT (22.3-36.8) Seconds Methemoglobin (0-1.5) %THb Sodium (137-145) mmol/L Potassium (3.4-5.0) mmol/L Chloride (98-107) mmol/L Carbon Dioxide (22-30) mmol/L Anion Gap (4-12) mmol/L BUN (9-20) mg/dL Creatinine (0.7-1.3) mg/dL Estim Creat Clear Calc ml/min Estimated GFR (59 - ) Glucose (65-110) mg/dL Calcium (8.4-10.2) mg/dL Total Bilirubin (0.2-1.3) mg/dL AST (17-59) U/L ALT (6-50) U/L Alkaline Phosphatase (38-126) U/L NT-Pro-B Natriuret Pep (19.9-100) pg/mL Total Protein (6.3-8.2) g/dL Albumin (3.5-5.1) g/dL Urine Color Dark yellow (Yellow) Urine Appearance Clear (Clear) Urine pH 7.0 (5.0-9.0) Ur Specific [place] 1.026 (1.001-1.035) Urine Protein Negative (Negative) mg/dL Urine Glucose (UA) Negative (Negative) mg/dL Urine Ketones Trace H (Negative) mg/dL Ur Blood (Man) Negative (Negative) Urine Nitrate Negative (Negative) Urine Bilirubin 1+ H (Negative) Urine Urobilinogen 1.0 (<2.0) mg/dL Leukocyte Esterase Rfl Trace H (Negative) ROBIN/UL Urine RBC 0-2 (0-2) /hpf Urine WBC 0-5 (0-3) /hpf Ur Squamous Epith Cells None seen (Few) /hpf Urine Bacteria None seen /hpf Urine Casts 0-2 Influenza A (RT-PCR) (Negative) Influenza B (RT-PCR) (Negative) RSV (RT-PCR) (Negative) SARS-CoV-2 RNA (RT-PCR) (Negative) ABG Data ABG results: 04/25/25 16:04 Puncture Site Right radial ABG pH 7.428 ABG pCO2 45.0 ABG pO2 81.5 ABG PO2/FiO2 Ratio 1.85 ABG HCO3 29.1 H ABG O2 Saturation 96.2 ABG O2 Content 16.8 ABG Base Excess 4.1 A-a Gradient 180.9 Oxyhemoglobin 95.5 Carboxyhemoglobin 0.8 Reduced Hemoglobin 3.7 Total Hemoglobin 12.5 O2 Delivery Device Nasal cannula O2 Liters/Min 6.0 FiO2 44 Imaging Data Radiologist's impression: Impressions Chest X-Ray 04/25/25 16:43 Impression: 1: Extensive bilateral airspace disease may represent edema and/or pneumonia. 2: Small right pleural effusion. Discharge Plan Discharge Clinical Impression: Pneumonia, Acute dyspnea Patient Disposition: Still a Patient Condition: Serious
[2025-04-25 16:15] LABS: Hematocrit 32.5 % (42.0-52.0); Hemoglobin 9.8 g/dL (14.0-18.0); Mean Corpuscular HGB Conc 30.2 g/dl (32-36); Mean Corpuscular Hemoglobin 28.9 pg (26-34); Mean Corpuscular Volume 95.9 fl (80-100); Mean Platelet Volume 10.5 fl (7.4-10.4); Platelet Count Result 212 k/mm3 (150-375); Red Blood Count 3.39 M/mm3 (4.6-6.20); Red Cell Distribution Width 14.2 % (11.5-14.5); White Blood Count 15.3 K/mm3 (4.5-10.0)
[2025-04-25 16:15] LABS: Alveolar/Arterial O2 Gradient 180.9 mmHg; Base Excess ABG 4.1 mEq/l (+/-2.0); Carboxyhemoglobin 0.8 % THb (0-2.0); Device NASAL CANNULA; Fractional Inspired Oxygen 44 %; HCO3 ABG 29.1 mEq/l (22.0-26.0); Modified Allen's Test Pass; Oxygen Content ABG 16.8 %vol (16.0-22.0); Oxygen Saturation ABG 96.2 % (95.0-100.0); Oxyhemoglobin 95.5 % THb (90.0-100.0); PO2 ABG 81.5 mmHg (80.0-100.0); PO2 FiO2 Ratio Arterial Blood 1.85 %; Reduced Hemoglobin 3.7 %THb (0-5.0); Site Drawn RIGHT RADIAL; Total Hemoglobin 12.5 g/dL (12.0-18.0); pH ABG 7.428 (7.350-7.450)
[2025-04-25] MEDS: ALBUTEROL SULFATE NEB 2.5 MG/3 ML INH 5 MG INHALATION (16:16)
[2025-04-25 16:29] LABS: INR 1.3; Prothrombin Time 16.2 Seconds (11.1-14.7)
[2025-04-25 16:31] LABS: Alanine Aminotransferase 30 U/L (6-50); Albumin Level 3.6 g/dL (3.5-5.1); Alkaline Phosphatase 410 U/L (38-126); Anion Gap 6 mmol/L (4-12); Aspartate Amino Transferase 48 U/L (17-59); Bilirubin,Total 0.6 mg/dL (0.2-1.3); Blood Urea Nitrogen 27 mg/dL (9-20); Calcium 9.1 mg/dL (8.4-10.2); Carbon Dioxide 31 mmol/L (22-30); Chloride 100 mmol/L (98-107); Estimated CRCL calculation 51 ml/min; Estimated Glomerular Filt Rate > 60; Glucose 134 mg/dL (65-110); Potassium 4.7 mmol/L (3.4-5.0); Sodium 137 mmol/L (137-145); Total Protein 7.2 g/dL (6.3-8.2)
[2025-04-25 16:39] LABS: NT Pro B Type Natriuretic Pept 396 pg/mL (19.9-100)
[2025-04-25] MEDS: methylPREDNISolone SOD SUCC 125 MG VIAL IV PUSH (16:57)
[2025-04-25 16:59] LABS: Band Neutrophils Percent 2 % (0-6); Lymphocytes Absolute Manual 0.61 K/mm3 (1.1-4.5); Monocytes Absolute Manual 0.91 K/mm3 (0.1-0.90); Monocytes Percent Manual 6 % (3-9); Neutrophils Absolute Manual 13.77 K/mm3 (1.3-6.7); Neutrophils Percent Manual 88 % (46-73); Nucleated Red Blood Cells 2 %; Platelet Estimate Adequate (Adequate); Total Cells Counted 100
[2025-04-25 17:00] LABS: Schistocytes None Seen
[2025-04-25 17:01] LABS: Hypochromasia 1+
[2025-04-25 17:04] LABS: Influenza A QL RT-PCR Negative (Negative); Influenza B QL RT-PCR Negative (Negative); RSV RNA, RT-PCR Negative (Negative); SARS-CoV-2 RNA PCR Negative (Negative)
--- OUTSIDE RECORDS SUMMARY | 2025-04-25 17:12 | XMS_ITS | Clinical Summary ---
Author Organization [employer] [id number] [facility] Address [address] [place] [address] Care Team Providers Care Advanced Practice Rn Name Role Phone Naveed Mcintosh MD Primary Care Provider [phone] Allergies No known active allergies Medications meloxicam [...] Take 1 Tablet by mouth daily. Active [id number] -Fish Oil (FISH OIL) 1,000 mg (120 [...] 1:33 PM CDT Height 180.3 cm (5' 11) 06/01/2019 1:33 PM CDT Body Mass Index 25.8 06/01/2019 1:33 PM CDT Plan of Treatment Health Maintenance Due Date Last Done Comments DTAP/TDAP/TD VACCINES (1 - Tdap) 1964 PNEUMOCOCCAL VACCINE 50+ YEARS (1 of 2 - PCV) 03/07/19 63 ZOSTER VACCINE (1 of 2) 1994 RSV VACCINE (60+ or ) (1 - 1-dose 75+ series) 2019 INFLUENZA VACCINE (#1) 2024 Insurance [facility] [id number] Care Teams Advanced Practice Rn Relationship Specialty Start Date End Date Naveed Mcintosh MD PCP - General Family Practice 05/18/19
--- OUTSIDE RECORDS SUMMARY | 2025-04-25 17:12 | XMS_ITS | Continuity of Care Document ---
Author Organization [facility] Address [address] [place] [address] Insurance Providers Payer Plan Claims Address Claims Phone Policy Number Group Number Relation Employer Guarantor Name Guarantor Guarantor Address Guarantor Phone [facility] MEDIC RE ADVANT [employer] [place] [employer] MEDIC ARE [place] [address] [address], [place] [address] tel:[phone] Self Russell Morse [address] [place] [address] [place] [address] [facility] [employer] HCARE MEDIC ARE [address] [address], [place] [address] tel:[phone] Self Russell Morse [address] [place] [address] [id number] [facility] fatemeh Insura nje [facility] Insur [facility] [id number] Self Russell Morse [address] [place] [address] [id number] Problems Condition ICD9 code ICD10 code SNOMED [...] Results No Results Allergies, adverse reactions, alerts Substance Reaction Date Status Type roflumilast diarrhea 01/11/2025 Drug clonazepam drowsiness 01/11/2025 Drug Immunizations Vaccine Route Date Status Covid-19 01/23/2025 Completed Pneumococcal 01/23/2025 Completed Medications No administered medications reported Vital Signs [...] N Body Mass Index 26.1 kg/m2 N 01/11/2025 Body Height 71 [in_i] N 01/20/2025 Inhaled Oxygen Concentration 32.0 % N Oxygen Saturation 94 % N Respiratory Rate 20 /min N Heart Rate 72 /min N Blood Pressure Systolic 128 mm[Hg] N Blood Pressure Diastolic 63 mm[Hg] N Body Height 71 [in_i] N Body Weight 185 [lb_av] N Body Mass Index 25.8 kg/m2 N Social History No smoking Hx [...] score: 90) Total score: 90 2023 Problem (Feeding: Independent) Feeding: Independ ent 12/07/2024 Problem (Bathing: Dependent) Bathing: Dependent 12/07/2024 Problem (Grooming: Independe nt face/hair/teeth/ shaving (implements provided)) Grooming: Independent face/hair/teeth/ shaving (implements provided) 12/07/2024 Problem (Dressing: Independe nt (including buttons, zips, laces, etc.)) Dressing: Independent (including buttons, zips, laces, etc.) 12/07/2024 Problem (Bowels: Continent) Bowels: Continent Problem (Bladder: Continent) Bladder: Continent 12/07/2024 Problem (Toilet use: Indepen dent (on and off, dressing, wiping)) Toilet use: Independent (on and off, dressing, wiping) 12/07/2024 Problem (Transfers (bed to c hair and back): Independent) Transfers (bed to chair and back): Independent 12/07/2024 Problem (Mobility (on level surfaces): Independent (but may use any aid; for example, stick) >50 yards) Mobility (on level surfaces): Independent (but may use any aid; for example, stick) >50 yards 12/07/2024 Problem (Stairs: Unable) Stairs: Unable 025 Problem (Total score: 85) Total score: 85 2024
--- OUTSIDE RECORDS SUMMARY | 2025-04-25 17:12 | XMS_ITS | Clinical Summary ---
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 10/28/2019 Ischemic cardiomyopathy 10/28/2019 Spinal stenosis 09/26/2015 Pain of right lower extremity 09/26/2015 Notalgia 09/25/2015 Encounters Date Type Department Care Team Description 03/27/2025 Telephone [facility] Infectious Diseases [address] [place] [id number] [facility] TANIA Rothman from Last 3 Months Surgical History Surgery [...] on file Legal 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 Gender Identity Male 11/26/2019 3:10 PM ASSOCIATE TRAINER Sexual Orientation Not on file Obstetrics History Last Filed Vital Signs Vital Sign Reading Time Taken Comments Blood Pressure 110/60 01/04/2025 11:39 AM ASSOCIATE TRAINER Pulse 76 01/04/2025 11:39 AM ASSOCIATE TRAINER Temperature - - Respiratory Rate - - Oxygen Saturation 87% 01/04/2025 11:39 AM ASSOCIATE TRAINER Inhaled Oxygen Concentration - - Weight 85.3 kg (188 lb) 01/04/2025 11:39 AM ASSOCIATE TRAINER Height 180.3 cm (5' 11) 01/04/2025 11:39 AM ASSOCIATE TRAINER Body Mass Index 26.22 01/04/2025 11:39 AM ASSOCIATE TRAINER Plan of Treatment Health Maintenance Due Date Last Done Comments Depression Screening 1945 Fall Risk Assessment 1945 DTaP/Tdap/Td Vaccine (1 - Tdap) 1955 Hepatitis B Screening 1962 Pneumococcal vaccine 65+ (1 of 2 - PCV) 1963 Abdominal Aortic Aneurysm (AAA) Screen 2009 Well Visit 65+ 2009 Zoster Vaccine (2 of 3) 11/21/2017 09/26/2017 Covid-19 Vaccine (3 - season) 2024, 01/22/2021 Influenza Vaccine (Season Ended) 2025 09/26/20 17, 11/27/2015 Insurance [facility] MEDIC[facility] ADVANTAGE [facility] [employer] [facility] Care Teams Aircraft Landing Gear Inspector Relationship Specialty Start Date End Date Naveed Mcintosh MD [address] [place] [address] PCP - General Family Medicine 10/07/19
--- OUTSIDE RECORDS SUMMARY | 2025-04-25 17:12 | XMS_ITS | Continuity of Care Document ---
Author Organization [facility] Address [address] [place] [address] Phone Care Team Providers Care Quoter Name Role Phone Dante PT, DPT, Te [...] Date Provider Providers Copied on Encounter [facility], [address], [place], [place], [id number], [place] tel:[phone] Joe Low back painOth symptoms and signs involving the musculoskelet al systemAbnorma l postureOther abnormalities of gait and mobility 9 Dante Tiwari. . Referring Provider: Naveed Mcintosh , [address] [place] [address], [place], [address]. tel:[phone] [facility], [id number], tel:[phone] [place] Low back painOth symptoms and signs involving the musculoskelet al systemAbnorma l postureOther abnormalities of gait and mobility Krystlehovidya Starka. . Referring Provider: Naveed Mcintosh , [address] [place] [address], [id number]. tel:[phone] [facility], [id number], [place] tel:[phone] [place] Low back painOth symptoms and signs involving the musculoskelet al systemAbnorma l postureOther abnormalities of gait and mobility Krystlehovidya Mcclellan. . Referring Provider: Naveed Mcintosh , [address] [place] [address], [id number]. tel:[phone] [facility], [id number], tel:[phone] [place] Low back painOth symptoms and signs involving the musculoskelet al systemAbnorma l postureOther abnormalities of gait and mobility Krystlehoffer Vy. . Referring Provider: Naveed Mcintosh , [address] [place] [address], [id number]. tel:[phone] [facility], [id number], tel:[phone] [place] Low back painOth symptoms and signs involving the musculoskelet al systemAbnorma l postureOther abnormalities of gait and mobility Dante Tiwari. . Referring Provider: Naveed Mcintosh , [address] [place] [address], [id number]. tel:[phone] [facility], [id number], tel:[phone] [place] Low back painOth symptoms and signs involving the musculoskelet al systemAbnorma l postureOther abnormalities of gait and mobility 0-201 9 Dante Tiwari. . Referring Provider: Naveed Mcintosh , [address] [place] [address], [id number]. tel:[phone] [facility] [address], [id number], tel:[phone] [place] Low back painOth symptoms and signs involving the musculoskelet al systemAbnorma l postureOther abnormalities of gait and mobility 7201 9 Dante Tiwari. . Referring Provider: Naveed Mcintosh , [address] [place] [address], [id number]. tel:[phone] [facility] [address], [id number], tel:[phone] [place] Low back painOth symptoms and signs involving the musculoskelet al systemAbnorma l postureOther abnormalities of gait and mobility 5201 9 Rick Mcclellan. . Referring Provider: Naveed Mcintosh , [address] [place] [address], [id number]. tel:[phone] Family History Family Member Type Diagnosis Age At Onset No Information Payers Payer name Insurance type Covered alliance party ID Authoriza tion(s) AARP Medicare Complete CI [id number] Social History Type Description Quantity Date Captured [...]
--- OUTSIDE RECORDS SUMMARY | 2025-04-25 17:12 | XMS_ITS | Referral Summary ---
Author Organization [facility] [address] Address [address] [place] [address] Care Team Providers Care Community Representative Name Role Phone Naveed Mcintosh MD Primary Care Prov ider Encounters Date Type Department Care Team Description 03/27/2025 Telephone [facility] Infectious Diseases [address] [place] [id number] [facility] Aigner, RETAIL LOAN OFFICER from Last 3 Months Allergies Active Allergy [...] 80 mg tabletIndicatio ns:Coronary artery disease involving [place] coronary artery of [place] heart without angina pectoris TAKE 1 TABLET [...] 25 mg tabletIndicatio ns:Coronary artery disease involving [place] coronary artery of [place] heart without angina pectoris Take 1 tablet [...] Diagnosed Date Coronary artery disease invo lving [place] coronary artery of [place] heart without angina pectoris 10/28/2019 Ischemic cardiomyopathy [...] on file Legal Sex Male 9:37 AM [employer] STE[employer]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 Gender Identity Male 11/26/2019 3:10 PM [employer] STEAMER OPERATOR Sexual Orientation Not on file Last Filed Vital Signs Vital Sign Reading Time Taken Comments Blood Pressure 110/60 01/04/2025 11:39 AM [employer] STEAMER OPERATOR Pulse 76 01/04/2025 11:39 AM [employer]EN[employer] STEAMER OPERATOR Temperature - - Respiratory Rate - - Oxygen Saturation 87% 01/04/2025 11:39 AM M[employer]YBDENUM STEAMER OPERATOR Inhaled Oxygen Concentration - - Weight 85.3 kg (188 lb) 01/04/2025 11:39 AM MOLYBDENUM STEAMER OPERATOR Height 180.3 cm (5' 11) 01/04/2025 11:39 AM MOLYBDENUM STEAMER OPERATOR Body Mass Index 26.22 01/04/2025 11:39 AM MOLYBD[employer]UM STEAMER OPERATOR Plan of Treatment Not on file Insurance [employer] Member Subscriber Plan / Payer (Ef fective 2022-) Name:Russell Morse Relation to Subscriber:Self Name:Russell Morse Payer ID:[id number] (NAIC) Type:[employer] MEDICARE Address: [place] [id number] [place] [id number] [employer] Care Teams Community Representative Relationship Specialty Start Date End Date Naveed Mcintosh MD [address] [place] [address] PCP - General Family Medicine 10/07/19
[2025-04-25 18:06] LABS: Add Urine Microscopic? YES; Appearance Urine Clear (Clear); Bacteria Urine None Seen /hpf; Bilirubin Urine 1+ (Negative); Blood Urine Negative (Negative); Color Urine Dark Yellow (Yellow); Glucose Urine UA Negative (Negative); Ketones Urine Trace mg/dL (Negative); Leukocyte Esterase Ur Trace LEU/UL (Negative); Nitrate Urine Negative (Negative); Non Pathogenic Casts 0-2; Protein Urine Negative (Negative); RBC Urine 0-2 /hpf (0-2); Specific Grav Ur 1.026 (1.001-1.035); Squamous Epithelial Cell Urine None Seen /hpf (Few); WBC Urine 0-5 /hpf (0-3)
--- NOTE | 2025-04-25 18:21 | PC.NURSE ---
Spoke to [facility] transfer center, given report on pt and recent set of VS. Will put on the list to be transferred and will call when a bed is available.
[2025-04-25] MEDS: SULFAMETHOXAZOLE/TRIMETHOPRIM 800/160 MG DS TABLET 2 TAB PO (18:29)
[2025-04-25] MEDS: AZITHROMYCIN 500 MG/NS 250 ML 500 MG/250 ML BAG 250 MG IVPB (18:29)
--- NOTE | 2025-04-25 19:28 | PC.NURSE ---
Assumed care of patient after receiving bedside report from MARJAN Mcclellan & MARJAN Ray @ [phone]
--- NOTE | 2025-04-25 20:20 | PM.IMHP ---
H&P: HPI History of Present Illness Date/Time: 04/25/25 21:00 Chief Complaint: Shortness of breath. 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 He was referred to [facility] earlier this year by Dr. Gottlieb given recurrent respiratory infections with the aforementioned cultures and he has an appointment coming up next week. He frequently has a cough productive of yellow phlegm however it has gotten worse over the last 24 hours and he is feeling more short of breath than usual. This morning he seemed to be a bit confused and was found to have a fever for which he was given acetaminophen. He had defervesced by the time he got to the ED and was back to his baseline orientation. Currently he has no complaints and specifically denies sore throat, hemoptysis, chest pain, vomiting, diarrhea, lower extremity edema, and calf pain. Appetite has been fair but he admits that he has lost about 15 lb in the last several months. In the ED: He was afebrile on arrival with stable blood pressures an SpO2 of 96% on a non-rebreather. Labs are significant for WBC count of 15.3 with 2% bands, hemoglobin 9.8, BUN 27, glucose 134, alkaline phosphatase 410, proBNP 396. Influenza, RSV, and COVID negative. Chest x-ray showed extensive bilateral airspace disease which may represent edema and/or pneumonia and small right pleural effusion. Transfer was initiated to [facility] for infectious disease consult however they are currently fallen do not expect the bed to be available for days and he is being admitted here for treatment pending transfer. Dr. Gottlieb recommends starting the patient on azithromycin, ceftriaxone, and sulfamethoxazole-trimethoprim in the interim. Review of Systems Review of Systems: 12 systems were reviewed and are negative except for as per HPI. [facility] Past Medical History Medical History Heart failure with mildly reduced ejection fraction Aspergillosis Pseudomonas aeruginosa infection Mycobacterium avium-intracellulare complex Congestive heart failure Colon polyps Chronic obstructive pulmonary disease Gastroesophageal reflux disease Osteoarthritis Chronic kidney disease, stage 3 Benign prostatic hyperplasia Cancer of lower jaw bone (1986) Vitamin D deficiency Essential hypertension Depression Chronic hypoxic respiratory failure, on home oxygen therapy Erythema multiforme Essential tremor Hyperlipidemia 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 History of tobacco use Polio (1951) Other chronic pain Aortic stenosis Mild - Echo 05/15/2022 NSTEMI (non-ST elevated myocardial infarction) (08/2019) Ischemic cardiomyopathy Echocardiogram 09/2021: Mildly reduced left ventricular systolic function EF of 45-50%, grade 1 diastolic dysfunction, inferior wall inferior septal wall basal inferior wall and mid inferior lateral wall hypokinesis with mild left atrial and large Atherosclerotic heart disease of [place] coronary artery without angina pectoris Abdominal aortic aneurysm, without rupture Seen on CT scan on 02/09/2018 Restless legs syndrome Spinal stenosis, lumbar region without neurogenic claudication Surgical History Surgical History History of tonsillectomy and adenoidectomy History of repair of rotator cuff bilateral History of colonoscopy with polypectomy History of bowel resection due to obstruction Presence of coronary angioplasty implant and graft History of coronary artery stent placement X2 History of mandibular surgery (1986) reconstructive surgery right mandible related to cancer Family History Family History Mother Diabetes mellitus Acute myocardial infarction Father Colon cancer COPD (chronic obstructive pulmonary disease) Sibling Colon cancer Acute myocardial infarction Lung cancer COPD (chronic obstructive pulmonary disease) Sibling COPD (chronic obstructive pulmonary disease) Sibling Congestive heart failure Sibling Dementia Social History Social History (Updated 04/26/25 @ 01:48 by Luz Colon PA-C) Social History: Surrogate medical decision maker: Yessi Morgan, daughter. Code status: Full code. Smoking packs per day: 1.5 Smoking cigarettes per day: 30.0 Years smoked: 40 Smoking pack-years: 60.00 Smoking status: Former smoker Tobacco type: cigarettes Second hand tobacco smoke exposure: No Alcohol intake: never Substance use: never Substance use type: does not use Other substance usage details: quit alcohol in 2010 Last use: Last alcohol use 2010 Do You Feel Safe in your Home?: Yes Lack of Transportation: No Lack of Food: Never True Current Housing: I Have Housing Concerned About Future Housing: No Difficulty Paying Gas/Electric Bills: No Difficulty Paying for Meds: No Currently Unemployed: No Education: High School Diploma/GED Difficulty w/ Childcare or Family Care: No Living arrangements: with family Additional living arrangements comments: . Lives in [place] with son and [id number]. 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 Spiritual care concerns: No Agree to blood products: Yes Meds Home Medications and Allergies Home Medications ?Medication ?Instructions ?Recorded ?Confirmed ?Type acetaminophen 500 mg tablet 1,000 mg PO Q6H PRN Pain 03/18/23 04/25/25 History (Tylenol Extra Strength) multivitamin 1 tablet PO DAILY 03/18/23 04/25/25 History cetirizine 10 mg capsule (Zyrtec) 10 mg PO DAILY PRN allergies 06/13/23 04/25/25 History aspirin 81 mg tablet,delayed 81 mg PO DAILY #90 tabs 06/15/23 04/25/25 Rx release polyethylene glycol 3350 17 gram 17 g PO QAM PRN Constipation #30 ea 06/15/23 04/25/25 Rx oral powder packet (Miralax) fenofibrate 160 mg tablet 160 mg PO DAILY #90 tabs 09/16/23 04/25/25 Rx losartan 50 mg tablet 50 mg PO DAILY #90 tabs 02/24/24 04/25/25 Rx nebulizer accessories #1 ea 04/12/24 04/25/25 Rx nebulizer and compressor #1 ea 04/12/24 04/25/25 Rx esomeprazole magnesium 20 mg See Rx Instructions .Route 04/28/24 04/25/25 Rx capsule,delayed release .COMPLEX #90 caps linaclotide 290 mcg capsule See Rx Instructions .Route 04/28/24 04/25/25 Rx (Linzess) .COMPLEX #90 caps albuterol sulfate 90 mcg/actuation 2 puff inhalation Q4H PRN 11/11/24 06/03/25 Rx aerosol inhaler Shortness Of Breath Or Wheezing #8.5 grams Saccharomyces boulardii 250 mg 250 mg PO TID #30 caps 11/06/24 04/25/25 Rx capsule (Florastor) simethicone 125 mg capsule (Gas-X 125 mg PO PRN 11/21/24 04/25/25 History Extra Strength) baclofen 10 mg tablet 10 mg PO Q12H PRN muscle spasm 12/02/24 04/25/25 History furosemide 40 mg tablet 60 mg (1.5 x 40 mg) PO DAILY #135 12/05/24 04/25/25 Rx tabs albuterol sulfate 2.5 mg/3 mL 2.5 mg (3 mL) inhalation Q4H PRN 12/08/24 04/25/25 Rx (0.083 %) solution for nebulization shortness of breath or wheezing #90 mL nitroglycerin 0.4 mg sublingual 0.4 mg sublingual Q5M PRN chest 12/08/24 04/25/25 Rx tablet pain #25 tabs bupropion HCl 150 mg tablet,12 hr 150 mg PO BID #180 tabs 12/28/24 04/25/25 Rx sustained-release metoprolol succinate 50 mg 50 mg PO HS #90 tabs 12/29/24 04/25/25 Rx tablet,extended release 24 hr hydroxyzine HCl 25 mg tablet 25 mg PO QID PRN anxiety #50 tabs 01/31/25 04/25/25 Rx trazodone 100 mg tablet 100 mg PO HS Insomnia #90 tabs 02/27/25 04/25/25 Rx sulfamethoxazole 800 2 tablet PO Q12H #28 tabs 03/02/25 04/25/25 Rx mg-trimethoprim 160 mg tablet tamsulosin 0.4 mg capsule 0.4 mg PO BID #180 caps 03/20/25 04/25/25 Rx lorazepam 0.5 mg tablet 0.5 mg PO BID PRN anxiety #60 tabs 03/21/25 04/25/25 Rx tobramycin 0.3 %-dexamethasone 0.1 1 drp EACH EYE QID #10 mL 04/05/25 04/25/25 Rx % eye drops,suspension morphine 30 mg tablet,extended 30 mg PO QAM #30 tabs 04/07/25 04/25/25 Rx release sulindac 200 mg tablet 200 mg PO BID #180 tabs 04/07/25 04/25/25 Rx atorvastatin 80 mg tablet 80 mg PO DAILY #90 tabs 04/11/25 04/25/25 Rx guaifenesin 600 mg tablet, 1,200 mg (2 x 600 mg) PO BID #120 04/14/25 04/25/25 Rx extended release 12 hr tabs sertraline 50 mg tablet 50 mg PO DAILY #90 tabs 04/20/25 04/25/25 Rx glycopyrrolate 9 mcg-formoterol See Rx Instructions .Route .COMPLEX 04/25/25 04/25/25 History 4.8 mcg HFA aerosol inhaler (Jibbigo) Allergies Allergy/AdvReac Type Severity Reaction Status Date / Time clonazepam AdvReac Severe Drowsy Verified 04/25/25 21:34 roflumilast (From Dalires) AdvReac Severe Diarrhea Verified 04/25/25 21:34 Vital Signs Vital Signs - 24 hr 04/25/25 15:45 04/25/25 15:52 04/25/25 15:52 Temperature 98.9 F Pulse Rate 88 90 Respiratory Rate 13 Blood Pressure 102/61 Pulse Oximetry 96 96 Oxygen Delivery Room Air Nasal Cannula Oxygen Flow Rate 6 04/25/25 15:57 04/25/25 17:39 04/25/25 17:42 Temperature 99.8 F H Pulse Rate 90 90 Respiratory Rate 21 H 24 H Blood Pressure 135/57 L 136/59 L Pulse Oximetry 96 96 97 Oxygen Delivery Nasal Cannula Oxygen Flow Rate 6 04/25/25 18:28 04/25/25 19:29 Temperature Pulse Rate 88 85 Respiratory Rate 15 16 Blood Pressure 136/59 L Pulse Oximetry 96 98 Oxygen Delivery Oxygen Flow Rate Exam Narrative: General: Chronically ill-appearing male in the semi-Calero position in bed. Weight: 71.8 kg. BMI: 22.1. HEENT: PERRL, EOMI. Sclera anicteric. Tacky mucous membranes. Neck: Supple. Respiratory: Currently on 6 L nasal cannula. Respirations are nonlabored. Lung sounds are a bit diminished with scattered coarse crackles. Cardiovascular: Regular rate and rhythm with S1-S2. Gastrointestinal: Abdomen is soft, nontender, and nondistended with positive bowel sounds. Skin: Warm and dry. No rash or lesions on limited exam. Extremities: No cyanosis, clubbing, or significant edema. Radial and pedal pulses intact. No palpable knots or cords. Negative Goldy sign bilaterally. Neurological: Alert. Cranial nerves 2-12 are grossly intact. No gross focal deficits to casual conversation. Psychiatric: Pleasant and cooperative with appropriate mood and affect. H&P: Results Labs Labs: Short CBC 04/25/25 Range/Units 15:55 WBC 15.3 H (4.5-10.0) K/mm3 Hgb 9.8 L (14.0-18.0) g/dL Hct 32.5 L (42.0-52.0) % Plt Count 212 (150-375) k/mm3 BMP 04/25/25 15:55 Sodium 137 Potassium 4.7 Chloride 100 Carbon Dioxide 31 H BUN 27 H D Creatinine 1.08 Glucose 134 H Calcium 9.1 Liver Function 04/25/25 Range/Units 15:55 Total Bilirubin 0.6 (0.2-1.3) mg/dL AST 48 (17-59) U/L ALT 30 (6-50) U/L Alkaline Phosphatase 410 H (38-126) U/L Albumin 3.6 (3.5-5.1) g/dL Urine 04/25/25 Range/Units 17:47 Urine Color Dark yellow (Yellow) Urine Appearance Clear (Clear) Urine pH 7.0 (5.0-9.0) Ur Specific [place] 1.026 (1.001-1.035) Urine Protein Negative (Negative) mg/dL Urine Glucose (UA) Negative (Negative) mg/dL Imaging Chest X-Ray 04/25/25 16:43 Impression: 1: Extensive bilateral airspace disease may represent edema and/or pneumonia. 2: Small right pleural effusion. Assessment and Plan Assessment and plan (1) Pneumonia: Code(s): J18.9 - Pneumonia, unspecified organism Status: Acute (2) Acute on chronic respiratory failure with hypoxia: Code(s): J96.21 - Acute and chronic respiratory failure with hypoxia Status: Acute (3) Elevated alkaline phosphatase level: Code(s): R74.8 - Abnormal levels of other serum enzymes Status: Acute (4) Chronic obstructive pulmonary disease: Code(s): J44.9 - Chronic obstructive pulmonary disease, unspecified Status: Acute (5) Essential hypertension: Code(s): I10 - Essential (primary) hypertension Status: Acute (6) Heart failure with mildly reduced ejection fraction: Code(s): I50.22 - Chronic systolic (congestive) heart failure Status: Acute (7) Chronic anemia: Code(s): D64.9 - Anemia, unspecified Status: Acute (8) Benign prostatic hyperplasia: Code(s): N40.0 - Benign prostatic hyperplasia without lower urinary tract symptoms Status: Acute Plan The patient presented to the emergency department for evaluation of shortness of breath as detailed in HPI. Labs, imaging, EKG, and all reports were personally reviewed. Preliminary workup is significant for developing low-grade fever, leukocytosis with bandemia, and findings of extensive bilateral airspace disease on chest x-ray suggestive of pneumonia. Previous sputum cultures on this gentleman have grown out Pseudomonas aeruginosa, Haemophilus influenzae, Alcaligenes xylosoxidans, and mycobacterium avium intracellulare and transfer has been initiated to [facility] in [place] for Infectious Disease consult. There is not a bed yet available for the patient he will be admitted to the hospital in the interim, pending bed availability. Dr. Gottlieb recommends starting the patient on azithromycin, ceftriaxone, and sulfamethoxazole-trimethoprim. Discontinue steroids. Sputum studies ordered. Alkaline phosphatase is the only LFT which is elevated. Etiology is not entirely clear, possibly drug related? Checked GGT to further delineate. He appears euvolemic and volume status will be monitored with I/O and daily weights. Chronic anemia is stable. Blood pressures were reviewed and are within acceptable range. His home medications will be reviewed and resumed as appropriate. Findings and treatment plan were discussed with the patient. Questions were solicited and answered to satisfaction. The patient's medical management will be taken over by the hospitalist team in a.m. Quality VTE Prophylaxis VTE prophylaxis: pharmacologic ordered The patient has been admitted under observation status. Hospitalist MIPS Advance Care Plan I have confirmed that the patient's Advanced Care Plan is present, code status is documented, or surrogate decision maker is listed in patient medical record.: Yes Medication Reconciliation I have utilized all available resources to obtain, update and review the patients current medications (includes all prescriptions, OTC, herbals, cannabis, and nutritional supplements).: Yes
--- NOTE | 2025-04-25 21:25 | ADMGEN ---
This patient, Russell Morse, was admitted to IMU Room 212-01. Patient/family oriented to hospital policies and general routines including ID bracelet, bed and alarms, visiting hours, pain management, procedures, bathroom and other care routines, personal items, smoking policy, room service/diet, and visiting hours. Information on how to activate the Rapid Response Team has been discussed. Patient/Family are encouraged to report perceived risks to care and to ask questions if they do not understand what they are told or what they should do.
[2025-04-25] MEDS: SULFAMETHOXAZOLE/TRIMETHOPRIM 800/160 MG DS TABLET 1 TAB PO (21:39)
[2025-04-26] VITALS (22 sets, daily range): BP systolic 116–146; BP diastolic 41–98; PULSE 64–83; RESP 17–20; TEMP 36.5–36.8; O2SAT 91–100
[2025-04-26] MEDS: METOPROLOL SUCCINATE EXT REL 50 MG TABCR PO ×2 (02:57→20:35)
[2025-04-26] MEDS: ACETAMINOPHEN 325 MG TABLET 650 MG PO (03:35)
[2025-04-26 05:03] LABS: Hematocrit 31.1 % (42.0-52.0); Hemoglobin 9.4 g/dL (14.0-18.0); Mean Corpuscular HGB Conc 30.2 g/dl (32-36); Mean Platelet Volume 10.9 fl (7.4-10.4); Platelet Count Result 199 k/mm3 (150-375); Red Blood Count 3.24 M/mm3 (4.6-6.20); Red Cell Distribution Width 14.4 % (11.5-14.5); White Blood Count 13.5 K/mm3 (4.5-10.0)
[2025-04-26 05:19] LABS: Alanine Aminotransferase 27 U/L (6-50); Albumin Level 3.4 g/dL (3.5-5.1); Alkaline Phosphatase 311 U/L (38-126); Anion Gap 6 mmol/L (4-12); Aspartate Amino Transferase 35 U/L (17-59); Bilirubin,Total 0.3 mg/dL (0.2-1.3); Blood Urea Nitrogen 28 mg/dL (9-20); Calcium 9.3 mg/dL (8.4-10.2); Carbon Dioxide 30 mmol/L (22-30); Chloride 100 mmol/L (98-107); Estimated CRCL calculation 50 ml/min; Estimated Glomerular Filt Rate > 60; Glucose 177 mg/dL (65-110); Sodium 136 mmol/L (137-145); Total Protein 6.8 g/dL (6.3-8.2)
[2025-04-26] MEDS: MORPHINE SULFATE (*CRX) 30 MG TABCR PO (05:29)
[2025-04-26] MEDS: LINACLOTIDE 145 MCG CAPSULE 290 MCG PO (05:29)
[2025-04-26 06:45] LABS: MRSA (PCR) NOT DETECTED (NOT DETECTE)
[2025-04-26 08:44] LABS: D Dimer 1.94 ug/mL (<0.48)
[2025-04-26 08:51] LABS: Magnesium 2.3 mg/dL (1.6-2.3)
[2025-04-26] MEDS: ATORVASTATIN 40 MG TABLET 80 MG PO (08:51)
[2025-04-26] MEDS: PANTOPRAZOLE 40 MG TABLET PO (08:51)
[2025-04-26] MEDS: TAMSULOSIN HCL 0.4 MG CAPSULE PO ×2 (08:52→20:36)
[2025-04-26] MEDS: ASPIRIN 81 MG ENTERIC TABLET PO (08:52)
[2025-04-26] MEDS: buPROPion HCL SR (12 HR) 150 MG TAB PO ×2 (08:54→20:36)
[2025-04-26] MEDS: FENOFIBRATE NANOCRYSTALLIZED 145 MG TABLET PO (08:54)
[2025-04-26] MEDS: SULFAMETHOXAZOLE/TRIMETHOPRIM 800/160 MG DS TABLET 1 TAB PO ×2 (08:54→12:57)
[2025-04-26] MEDS: MULTIVITAMINS THERAPEUTIC TAB (*BKC) 1 TABLET PO (08:54)
[2025-04-26] MEDS: FUROSEMIDE 20 MG TABLET 60 MG PO (08:54)
[2025-04-26] MEDS: guaiFENesin 12 HR 600 MG TABCR 1200 MG PO ×2 (08:55→20:34)
[2025-04-26] MEDS: TOBRAMYCIN/DEXAMETHASONE OP 2.5 ML BTL 1 DROP EACH EYE ×4 (08:56→20:38)
[2025-04-26] MEDS: ENOXAPARIN 40 MG/0.4 ML SYRINGE SUB-Q (08:56)
[2025-04-26] MEDS: SERTRALINE HCL 50 MG TABLET PO (08:56)
[2025-04-26] MEDS: UMECLIDINIUM/VILANTEROL 62.5-25 MCG ELLIPTA 1 PUFF INHALATION (09:14)
--- NOTE | 2025-04-26 10:31 | P.PNIM_ITS ---
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 * Duonebs q 6. * Pulmonology following, appreciate recommendations. * Patient is on [facility] wait list for transfer for ID. * WBC 15.3>13.5, improving. * D dimer 1.94. * Chest CTA: IMPRESSION: 1. Multifocal airspace disease, consistent with pneumonia. 2: Bilateral pleural effusions, right greater than left. 3: Mediastinal lymphadenopathy, likely reactive. 4.: Pulmonary artery enlargement, consistent with pulmonary hypertension. 5: Emphysema. (2) Acute on chronic respiratory failure with hypoxia: Code(s): J96.21 - Acute and chronic respiratory failure with hypoxia Status: Acute Assessment and Plan: * 02@ 3LNC with Sa02 96%. (3) Elevated alkaline phosphatase level: Code(s): R74.8 - Abnormal levels of other serum enzymes Status: Acute Assessment and Plan: * 410>311, improving. (4) Chronic obstructive pulmonary disease: Code(s): J44.9 - Chronic obstructive pulmonary disease, unspecified Status: Acute Assessment and Plan: * Duonebs q 6. * Extended respiratory pathogen panel, urine Legionella antigen, urine pneumococcal antigen, serum mycoplasma IgM collected. * Guaifenesin 1,200 mg PO Q 12 (5) Essential hypertension: Code(s): I10 - Essential (primary) hypertension Status: Acute Assessment and Plan: * Blood pressure 116/43. * Metoprolol Succinate 50 mg PO HS. (6) Heart failure with mildly reduced ejection fraction: Code(s): I50.22 - Chronic systolic (congestive) heart failure Status: Acute Assessment and Plan: * Furosemide 60 mg PO daily. * Metoprolol Succinate 50 mg PO HS. (7) Chronic anemia: Code(s): D64.9 - Anemia, unspecified Status: Acute Assessment and Plan: * Current H&H 9.4/31.1. Subjective Date/time seen: 04/26/25 10:31 Interval history: Patient sitting up in chair. Patient reports shortness of breath at times at rest and with activity. Patient denies chest pain, palpitations, headache, dizziness, nausea, or vomiting. Reports productive cough. Review of Systems Review of Systems: All systems reviewed & are unremarkable except as noted in HPI and below Exam Const: General: comfortable and no acute distress Resp: Effort & Inspection: normal respiratory effort Auscultation: wheezes expiratory wheezes Other: slightly diminished. Sputum butts with light green tinge. Cardio: Rate: regular rate Rhythm: regular rhythm Other: Telemetry- SR 73. GI: GI Palp: Yes Soft to palpation Auscultation: normal bowel sounds Neuro: Speech: normal speech Extrem: General: no pedal edema Psych: Mental Status: mental status grossly normal Affect: normal affect Objective Data Vital Signs Vital Signs: Vital Signs - 24 hr 04/25/25 15:45 04/25/25 15:52 04/25/25 15:52 Temperature 98.9 F Pulse Rate 88 90 Respiratory Rate 13 Blood Pressure 102/61 Pulse Oximetry 96 96 Oxygen Delivery Room Air Nasal Cannula Oxygen Flow Rate 6 04/25/25 15:57 04/25/25 17:39 04/25/25 17:42 Temperature 99.8 F H Pulse Rate 90 90 Respiratory Rate 21 H 24 H Blood Pressure 135/57 L 136/59 L Pulse Oximetry 96 96 97 Oxygen Delivery Nasal Cannula Oxygen Flow Rate 6 04/25/25 18:28 04/25/25 19:29 04/25/25 21:00 Temperature Pulse Rate 88 85 85 Respiratory Rate 15 16 21 H Blood Pressure 136/59 L Pulse Oximetry 96 98 94 Oxygen Delivery Oxygen Flow Rate 04/25/25 22:00 04/25/25 23:28 04/26/25 00:00 Temperature 98.3 F Pulse Rate 86 77 Respiratory Rate 17 Blood Pressure 134/98 H Pulse Oximetry 91 96 Oxygen Delivery Nasal Cannula Oxygen Flow Rate 5 04/26/25 00:00 04/26/25 00:00 04/26/25 02:00 Temperature Pulse Rate 71 66 Respiratory Rate Blood Pressure Pulse Oximetry 99 Oxygen Delivery Nasal Cannula Oxygen Flow Rate 5 04/26/25 02:57 04/26/25 04:00 04/26/25 04:00 Temperature Pulse Rate 68 72 Respiratory Rate Blood Pressure Pulse Oximetry 100 Oxygen Delivery Nasal Cannula Oxygen Flow Rate 5 04/26/25 04:00 04/26/25 06:00 04/26/25 07:55 Temperature 97.7 F 97.8 F Pulse Rate 71 68 69 Respiratory Rate 17 18 Blood Pressure 146/57 H 135/81 Pulse Oximetry 94 100 Oxygen Delivery Oxygen Flow Rate 04/26/25 09:15 04/26/25 09:15 Temperature Pulse Rate 83 Respiratory Rate 20 Blood Pressure Pulse Oximetry 98 Oxygen Delivery Nasal Cannula Oxygen Flow Rate 3 Intake/Output Intake/Output: Intake & Output 04/23/25 04/24/25 04/25/25 04/26/25 23:59 23:59 23:59 23:59 Intake Total 300 240 Output Total 225 Balance 300 15 Meds/Results Medications: Active Medications Generic Name Dose Route Start Last Admin Trade Name Freq PRN Reason Stop Dose Admin Acetaminophen 650 mg 04/26/25 01:49 04/26/25 03:35 Acetaminophen 325 Mg Tablet PO 650 mg Q6H PRN Administration Mild Pain (1-3) or Fever Albuterol 2.5 mg 04/26/25 01:51 Albuterol Sulfate Neb 2.5 Mg/3 Ml Inh INHALATION Q4HRT PRN shortness of breath or wheezing Albuterol/Ipratropium 3 ml 04/26/25 14:00 Ipratropium 0.5 Mg/Albuterol Sulfate 2.5 Mg Ampul.Neb 3 Ml INHALATION Q6HRT [facility] Aspirin 81 mg 04/26/25 09:00 04/26/25 08:52 Aspirin 81 Mg Enteric Tablet PO 81 mg DAILY GIOVANNY Administration Atorvastatin Calcium 80 mg 04/26/25 09:00 04/26/25 08:51 Atorvastatin 40 Mg Tablet PO 80 mg DAILY GIOVANNY Administration Baclofen 10 mg 04/26/25 01:51 Baclofen 10 Mg Tablet PO Q12H PRN muscle spasm Bupropion HCl 150 mg 04/26/25 09:00 04/26/25 08:54 Bupropion Hcl Sr (12 Hr) 150 Mg Tab PO 150 mg Q12HR GIOVANNY Administration Enoxaparin Sodium 40 mg 04/26/25 09:00 04/26/25 08:56 Enoxaparin 40 Mg/0.4 Ml Syringe SUB-Q 40 mg DAILY GIOVANNY Administration Fenofibrate 145 mg 04/26/25 09:00 04/26/25 08:54 Fenofibrate Nanocrystallized 145 Mg Tablet PO 145 mg QAM GIOVANNY Administration Furosemide 60 mg 04/26/25 09:00 04/26/25 08:54 Furosemide 20 Mg Tablet PO 60 mg DAILY GIOVANNY Administration Guaifenesin 1,200 mg 04/26/25 09:00 04/26/25 08:55 Guaifenesin 12 Hr 600 Mg Tabcr PO 1,200 mg Q12HR GIOVANYN Administration Hydroxyzine HCl 25 mg 04/26/25 01:51 Hydroxyzine Hcl 25 Mg Tablet PO QID PRN anxiety Azithromycin 500 mg in 250 mls @ 250 mls/hr 04/26/25 19:00 Zithromax IVPB Q24H GIOVANNY Ceftriaxone Sodium 2 gm in 100 mls @ 200 mls/hr 04/26/25 18:00 Rocephin 2 Gm/Ns 100 Ml IVPB Q24H [facility] Linaclotide 290 mcg 04/26/25 06:30 04/26/25 05:29 Linaclotide 145 Mcg Capsule PO 290 mcg DAILY@0630 GIOVANNY Administration Loratadine 10 mg 04/26/25 01:59 Loratadine 10 Mg Tablet PO DAILY PRN allergies Lorazepam 0.5 mg 04/26/25 01:51 Lorazepam (*Crx) 0.5 Mg Tablet PO BID PRN anxiety Metoprolol Succinate 50 mg 04/26/25 02:00 04/26/25 02:57 Metoprolol Succinate Ext Rel 50 Mg Tabcr PO 50 mg HS GIOVANNY Administration Miscellaneous Information 1 each 04/26/25 00:01 04/26/25 02:58 Sulindac 200 Mg Tablet Is Noformulary, Can Patient Bring From Home? XX 05/26/25 00:00 Not Given CLARIFY [facility] Morphine Sulfate 30 mg 04/26/25 06:00 04/26/25 06:21 Morphine Sulfate (*Crx) 30 Mg Tabcr PO Not Given DAILY@0600 [facility] Multivitamins Therapeutic 1 tablet 04/26/25 09:00 04/26/25 08:54 Multivitamins Therapeutic Tab (*Bkc) PO 1 tablet DAILY [facility] Administration Non-Formulary Medication 200 mg 04/26/25 09:00 Sulindac PO 05/26/25 08:59 BID GIOVANNY Pantoprazole Sodium 40 mg 04/26/25 09:00 04/26/25 08:51 Pantoprazole 40 Mg Tablet PO 40 mg QAM GIOVANNY Administration Polyethylene Glycol 17 gm 04/26/25 01:51 Polyethylene Glycol 3350 17 Gm Powd.Pack PO QAM PRN Constipation Sertraline HCl 50 mg 04/26/25 09:00 04/26/25 08:56 Sertraline Hcl 50 Mg Tablet PO 50 mg DAILY GIOVANNY Administration Sodium Chloride 6 ml 04/26/25 05:00 Sodium Chlor 3% 15 Ml Neb (Respiratory Therapy) INHALATION 04/28/25 05:01 DAILY@0500 GIOVANNY Tamsulosin HCl 0.4 mg 04/26/25 09:00 04/26/25 08:52 Tamsulosin Hcl 0.4 Mg Capsule PO 0.4 mg Q12HR GIOVANNY Administration Tobramycin/Dexamethasone 1 drop 04/26/25 09:00 04/26/25 08:56 Tobramycin/Dexamethasone Op 2.5 Ml Btl EACH EYE 1 drop QID GIOVANNY Administration Trazodone HCl 100 mg 04/26/25 21:00 Trazodone Hcl 50 Mg Tablet PO HS GIOVANNY Trimethoprim/Sulfamethoxazole 1 tab 04/25/25 21:00 04/26/25 08:54 Sulfamethoxazole/Trimethoprim 800/160 Mg Ds Tablet PO 1 tab Q12HR GIOVANNY Administration Radiology Results: ITS Impressions Chest X-Ray 04/25/25 16:43 Impression: 1: Extensive bilateral airspace disease may represent edema and/or pneumonia. 2: Small right pleural effusion. Labs Labs: Laboratory Results - last 24 hr 04/25/25 04/25/25 04/25/25 15:55 16:04 16:08 WBC 15.3 H RBC 3.39 L Hgb 9.8 L Hct 32.5 L MCV 95.9 MCH 28.9 MCHC 30.2 L RDW 14.2 Plt Count 212 MPV 10.5 H Immature Gran % (Auto) Not Reportable Neut % (Auto) Not Reportable Lymph % (Auto) Not Reportable [place] % (Auto) Not Reportable Eos % (Auto) Not Reportable Baso % (Auto) Not Reportable Lymph # (Auto) Not Reportable [place] # (Auto) Not Reportable Eos # (Auto) Not Reportable Baso # (Auto) Not Reportable Abs Immat Gran (auto) Not Reportable Absolute Neuts (auto) Not Reportable Absolute Nucleated RBC Not Reportable Total Counted 100 Neutrophils % (Manual) 88 H Band Neutrophils % 2 Lymphocytes % (Manual) 4.0 L Monocytes % (Manual) 6 Nucleated RBC % Not Reportable Abs Neuts (Manual) 13.77 H Abs Lymphs (Manual) 0.61 L Abs Monocytes (Manual) 0.91 H Nucleated RBCs 2 Platelet Estimate Adequate Hypochromasia 1+ Schistocytes None seen PT 16.2 H INR 1.3 APTT 38.0 H D-Dimer Puncture Site Right radial ABG pH 7.428 ABG pCO2 45.0 ABG pO2 81.5 ABG PO2/FiO2 Ratio 1.85 ABG HCO3 29.1 H ABG O2 Saturation 96.2 ABG O2 Content 16.8 ABG Base Excess 4.1 A-a Gradient 180.9 Oxyhemoglobin 95.5 Carboxyhemoglobin 0.8 Methemoglobin 0.0 Reduced Hemoglobin 3.7 Total Hemoglobin 12.5 O2 Delivery Device Nasal cannula O2 Liters/Min 6.0 FiO2 44 Sodium 137 Potassium 4.7 Chloride 100 Carbon Dioxide 31 H Anion Gap 6 BUN 27 H D Creatinine 1.08 Estim Creat Clear Calc 51 Estimated GFR > 60 Glucose 134 H Calcium 9.1 Magnesium Total Bilirubin 0.6 AST 48 ALT 30 Alkaline Phosphatase 410 H NT-Pro-B Natriuret Pep 396 H Total Protein 7.2 Albumin 3.6 Urine Color Urine Appearance Urine pH Ur Specific [place] Urine Protein Urine Glucose (UA) Urine Ketones Ur Blood (Man) Urine Nitrate Urine Bilirubin Urine Urobilinogen Leukocyte Esterase Rfl Urine RBC Urine WBC Ur Squamous Epith Cells Urine Bacteria Urine Casts Nasal MRSA (PCR) Influenza A (RT-PCR) Negative Influenza B (RT-PCR) Negative RSV (RT-PCR) Negative SARS-CoV-2 RNA (RT-PCR) Negative 04/25/25 04/26/25 04/26/25 17:47 04:25 05:20 WBC 13.5 H RBC 3.24 L Hgb 9.4 L Hct 31.1 L MCV 96.0 MCH 29.0 MCHC 30.2 L RDW 14.4 Plt Count 199 MPV 10.9 H Immature Gran % (Auto) Neut % (Auto) Lymph % (Auto) [place] % (Auto) Eos % (Auto) Baso % (Auto) Lymph # (Auto) [place] # (Auto) Eos # (Auto) Baso # (Auto) Abs Immat Gran (auto) Absolute Neuts (auto) Absolute Nucleated RBC Total Counted Neutrophils % (Manual) Band Neutrophils % Lymphocytes % (Manual) Monocytes % (Manual) Nucleated RBC % Abs Neuts (Manual) Abs Lymphs (Manual) Abs Monocytes (Manual) Nucleated RBCs Platelet Estimate Hypochromasia Schistocytes PT INR APTT D-Dimer Puncture Site ABG pH ABG pCO2 ABG pO2 ABG PO2/FiO2 Ratio ABG HCO3 ABG O2 Saturation ABG O2 Content ABG Base Excess A-a Gradient Oxyhemoglobin Carboxyhemoglobin Methemoglobin Reduced Hemoglobin Total Hemoglobin O2 Delivery Device O2 Liters/Min FiO2 Sodium 136 L Potassium 4.0 Chloride 100 Carbon Dioxide 30 Anion Gap 6 BUN 28 H Creatinine 1.04 Estim Creat Clear Calc 50 Estimated GFR > 60 Glucose 177 H Calcium 9.3 Magnesium 2.3 Total Bilirubin 0.3 AST 35 ALT 27 Alkaline Phosphatase 311 H NT-Pro-B Natriuret Pep Total Protein 6.8 Albumin 3.4 L Urine Color Dark yellow Urine Appearance Clear Urine pH 7.0 Ur Specific [place] 1.026 Urine Protein Negative Urine Glucose (UA) Negative Urine Ketones Trace H Ur Blood (Man) Negative Urine Nitrate Negative Urine Bilirubin 1+ H Urine Urobilinogen 1.0 Leukocyte Esterase Rfl Trace H Urine RBC 0-2 Urine WBC 0-5 Ur Squamous Epith Cells None seen Urine Bacteria None seen Urine Casts 0-2 Nasal MRSA (PCR) Not detected Influenza A (RT-PCR) Influenza B (RT-PCR) RSV (RT-PCR) SARS-CoV-2 RNA (RT-PCR) 04/26/25 08:07 WBC RBC Hgb Hct MCV MCH MCHC RDW Plt Count MPV Immature Gran % (Auto) Neut % (Auto) Lymph % (Auto) [place] % (Auto) Eos % (Auto) Baso % (Auto) Lymph # (Auto) [place] # (Auto) Eos # (Auto) Baso # (Auto) Abs Immat Gran (auto) Absolute Neuts (auto) Absolute Nucleated RBC Total Counted Neutrophils % (Manual) Band Neutrophils % Lymphocytes % (Manual) Monocytes % (Manual) Nucleated RBC % Abs Neuts (Manual) Abs Lymphs (Manual) Abs Monocytes (Manual) Nucleated RBCs Platelet Estimate Hypochromasia Schistocytes PT INR APTT D-Dimer 1.94 H Puncture Site ABG pH ABG pCO2 ABG pO2 ABG PO2/FiO2 Ratio ABG HCO3 ABG O2 Saturation ABG O2 Content ABG Base Excess A-a Gradient Oxyhemoglobin Carboxyhemoglobin Methemoglobin Reduced Hemoglobin Total Hemoglobin O2 Delivery Device O2 Liters/Min FiO2 Sodium Potassium Chloride Carbon Dioxide Anion Gap BUN Creatinine Estim Creat Clear Calc Estimated GFR Glucose Calcium Magnesium Total Bilirubin AST ALT Alkaline Phosphatase NT-Pro-B Natriuret Pep Total Protein Albumin Urine Color Urine Appearance Urine pH Ur Specific [place] Urine Protein Urine Glucose (UA) Urine Ketones Ur Blood (Man) Urine Nitrate Urine Bilirubin Urine Urobilinogen Leukocyte Esterase Rfl Urine RBC Urine WBC Ur Squamous Epith Cells Urine Bacteria Urine Casts Nasal MRSA (PCR) Influenza A (RT-PCR) Influenza B (RT-PCR) RSV (RT-PCR) SARS-CoV-2 RNA (RT-PCR) Quality VTE Prophylaxis VTE prophylaxis: pharmacologic ordered
[2025-04-26 11:11] LABS: Procalcitonin 0.5 ng/mL
--- NOTE | 2025-04-26 11:56 | PM.CNPUL ---
Assessment and Plan Assessment and plan (1) Chronic obstructive pulmonary disease: Code(s): J44.9 - Chronic obstructive pulmonary disease, unspecified Status: Acute Assessment and Plan: Gold grade 2 group E COPD Regarding his COPD, patient with 60 pack year tobacco use quit in 2019, alpha 1 anti trypsin genotype MM, [id number] apical predominant centrilobular and paraseptal emphysema on his CT scan from 10/11/2021. Of note he has had COVID pneumonia on 09/10/2021 and Pseudomonas pneumonia on 10/10/2021. His PFTs from 12/16/2023 show mild obstruction with FEV1 68%, ratio 61%. No bronchodilator response, hyperinflation, severely decreased DLCO the remains mildly decreased when adjusted for alveolar volume. Compared to 01/01/2022 had been a significant decrease in the FVC, FEV1, total lung capacity, functional residual capacity and diffusing capacity. When admitted for pneumonia had an ABG on 02/25/2024 on 3 L nasal cannula 7.44/36/67. 10/04/2024: ABG on 2 L 7.43/41/75. 10/04/2024: White blood cell count 11.1 eosinophils 3.2%=355/uL. 04/09/2024 white blood cell count 11.1, eosinophils 0.4%=44/uL. Tested positive for COVID 11/13/2023 treated with Paxlovid, rebound symptoms treated with clarithromycin and doxycycline. Hospitalize 02/25/2024 for pneumonia with sputum showing Haemophilus treated with steroids. Hospitalized 04/10/24 to 04/12/24 for COPD exacerbation treated with prednisone and azithromycin. 09/08/2024 cold symptoms, treated with doxycycline and prednisone taper. 10/04/2024 ED visit for shortness of breath treated for fluid overload and COPD exacerbation with prednisone and Augmentin. 11/04 admitted to [facility] with congestive heart failure and pneumonia no evidence of COPD exacerbation. 11/20 admitted to [facility] for shortness of breath, fluid overload and possible pneumonia. 12/02/2024 through 12/06/2024 admitted to [facility] treated for pneumonia. sputum from 12/17/2024 grew out Alcaligenes xylosoxidans sensitive to meropenem and Septra, intermediate to Zosyn, resistant to ceftaz, levofloxacin and imipenem. 03/02/2025 patient with increased phlegm production and treated for bronchitis with Septra DS 2 tablets twice a day x 7 days. 04/25/2025: patient presented to the hospital With fever, increased cough, increased phlegm production, leukocytosis, chest x-ray with worsening bibasilar infiltrates. 04/26/2025: The patient tells me he is breathing better at rest. He says that his cough and phlegm production are the same. His white blood cell count is 13.5, his creatinine is 1.04. His D-dimer is 1.94. His saturations on 5 L nasal cannula are 98%. I decreased him to 3 L nasal cannula saturations were 96%. He was in no respiratory distress. He had wheezes on exam. CT angiogram of the chest ordered. 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 the patient does have wheezing today. I would like to avoid inhaled oral steroids given his SNEHA history. I will discontinue his Anoro Ellipta in place him on DuoNebs q.6 hours. Goal saturation 90-94%. Will adjust oxygen accordingly. D-dimer is positive and I have been ordered CT angiogram of the chest. Her continue guaifenesin 1200 mg p.o. b.i.d.. Will order Cornet flutter valve. I have sent and extended respiratory pathogen panel, urine Legionella antigen, urine pneumococcal antigen, serum mycoplasma IgM Looking for alternative infectious etiologies. I have sent sputum for bacterial Gram stain and culture as well as AFB. Discussed with Elenita Cardozo, will follow with you (2) Acute on chronic respiratory failure with hypoxia: Code(s): J96.21 - Acute and chronic respiratory failure with hypoxia Status: Acute Assessment and Plan: Recently patient has been using 7 L nasal cannula at rest with saturations 95-97% at home. 7 L with activity with saturations 92% at home and he has been sleeping with 7 L. ABG in the emergency room on 6 L 7.43/45/82. There is no significant hypercarbic respiratory failure. 04/26/2025: On 5 L nasal cannula saturations were 93%. I decreased him to 3 L nasal cannula and his saturations were 96%. Plan: Goal saturation 90-94%, adjust oxygen accordingly. 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 Sputum on 12/15/2024 with AFB verified on 01/14/25 and grew SNEHA on 03/03/25. Sensitivities 03/20/25. On 03/20/25 patient referred to [facility] with appointment scheduled for 05/02/2025. Sputum on 12/16/2024 with AFB verified on 01/20/25 and grew SNEHA on 02/01/25.?Sensitivities 03/28/25. QuantiFERON gold was negative on 01/24/25. ORGANISM: MYCOBACTERIUM AVIUM COMPLEX AMIKACIN: 16 S mcg/mL AMIKACIN (LIPOSOMAL, INHALED): 16 S mcg/mL CIPROFLOXACIN: >8 mcg/mL CLARITHROMYCIN: 2 S mcg/mL CLOFAZIMINE: 0.25 mcg/mL DOXYCYCLINE: >8 mcg/mL LINEZOLID: 16 I mcg/mL MINOCYCLINE: >8 mcg/mL MOXIFLOXACIN: 4 R mcg/mL RIFABUTIN: 1 mcg/mL RIFAMPIN: >4 mcg/mL STREPTOMYCIN: >32 * This is a corrected result. * A prior result that was reported as final has been changed. 1. Mycobacterium avium complex M.I.C. RX --------- --- Rifampin AFB >4 S Streptomycin AFB R Amikacin AFB 16 S Moxifloxacin AFB R 04/25/2025: Recommended patient be transferred to [facility] so he could be evaluated by Infectious Disease team to determine if he needs active treatment for his SNEHA and if so which medicines would be recommended. 04/26/25: patient is afebrile today. Patient feels improved with ceftriaxone cam a azithromycin and Septra. Plan: I will send repeat sputum for AFB. Recommend transfer to [facility] to be evaluated by Infectious Disease team. CT angiogram of the chest ordered. History of Present Illness History of Present Illness Consult date: 04/26/25 Chief complaint: COPD, MAC, pneumonia Narrative: 04/26/2025: This is a new pulmonary consult for COPD and MAC. 80-year-old with a history of coronary artery disease status post non ST elevation SD August of 2019, ischemic cardiomyopathy, hypertension, hyperlipidemia, Gold grade 2 group B COPD on home oxygen 7 L at rest, with activity and with sleep and MAC lung disease. Regarding his COPD, patient with 60 pack year tobacco use quit in 2019, alpha 1 anti trypsin genotype MM, [id number] apical predominant centrilobular and paraseptal emphysema on his CT scan from 10/11/2021. Of note he has had COVID pneumonia on 09/10/2021 and Pseudomonas pneumonia on 10/10/2021. His PFTs from 12/16/2023 show mild obstruction with FEV1 68%, ratio 61%. No bronchodilator response, hyperinflation, severely decreased DLCO the remains mildly decreased when adjusted for alveolar volume. Compared to 01/01/2022 had been a significant decrease in the FVC, FEV1, total lung capacity, functional residual capacity and diffusing capacity. When admitted for pneumonia had an ABG on 02/25/2024 on 3 L nasal cannula 7.44/36/67. 10/04/2024: ABG on 2 L 7.43/41/75. 10/04/2024: White blood cell count 11.1 eosinophils 3.2%=355/uL. 04/09/2024 white blood cell count 11.1, eosinophils 0.4%=44/uL. Tested positive for COVID 11/13/2023 treated with Paxlovid, rebound symptoms treated with clarithromycin and doxycycline. Hospitalize 02/25/2024 for pneumonia with sputum showing Haemophilus treated with steroids. Hospitalized 04/10/24 to 04/12/24 for COPD exacerbation treated with prednisone and azithromycin. 09/08/2024 cold symptoms, treated with doxycycline and prednisone taper. 10/04/2024 ED visit for shortness of breath treated for fluid overload and COPD exacerbation with prednisone and Augmentin. 11/04 admitted to [facility] with congestive heart failure and pneumonia no evidence of COPD exacerbation. 11/20 admitted to [facility] for shortness of breath, fluid overload and possible pneumonia. 12/02/2024 through 12/06/2024 admitted to [facility] treated for pneumonia. sputum from 12/17/2024 grew out Alcaligenes xylosoxidans sensitive to meropenem and Septra, intermediate to Zosyn, resistant to ceftaz, levofloxacin and imipenem. 03/02/2025 patient with increased phlegm production and treated for bronchitis with Septra DS 2 tablets twice a day x 7 days. 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 Sputum on 12/15/2024 with AFB verified on 01/14/25 and grew SNEHA on 03/03/25. Sensitivities 03/20/25. On 03/20/25 patient referred to [facility] with appointment scheduled for 05/02/2025. Sputum on 12/16/2024 with AFB verified on 01/20/25 and grew SNEHA on 02/01/25.?Sensitivities 03/28/25. QuantiFERON gold was negative on 01/24/25. Patient was treated for bronchitis on 03/02/2025 and improved with Septra. He was at his baseline which is dyspnea on exertion at 50-75 feet. He is using 7 L at rest, with saturations 95-97% at home. He is using 7 L with activity with saturations 92%. He is using 7 L at night. He typically has no daily fevers. He coughs phlegm 2 times a day which is described as lynn. Patient tells me he was at his baseline on 04/24/2020 5. On 04/25/2025 he developed a fever, increased cough, worsening dyspnea on exertion with the same amount of phlegm. Family reported some confusion. He was brought to the emergency department. 04/25/25: In the emergency department his blood pressure is 102/61, heart rate 88, respirations 13 saturations 98% on 6 L nasal cannula. His white blood cell count was 15.3, his creatinine was 1.08, his BNP was 396. His nasal swab for MRSA was negative. His COVID, influenza, RSV RT PCR sick assay was negative. His ABG on 6 L 7.43/45/82. he was given Solu-Medrol 125, bronchodilators. Chest x-ray demonstrated bilateral interstitial infiltrates, loculated right pleural effusion with increased bibasilar infiltrates compared to 01/04/2025. I spoke with the emergency room physician and requested that he be transferred to [facility] said he could be evaluated by an Infectious Disease team which we do not have at [facility]. Patient was referred to [facility] but no beds were available. In the meantime I recommended ceftriaxone, azithromycin and Septra. 04/26/2025: The patient tells me he is breathing better at rest. He says that his cough and phlegm production are the same. His white blood cell count is 13.5, his creatinine is 1.04. His D-dimer is 1.94. His saturations on 5 L nasal cannula are 98%. I decreased him to 3 L nasal cannula saturations were 96%. He was in no respiratory distress. He had wheezes on exam. CT angiogram of the chest ordered. DATA 01/02/25:? Modified barium swallow:? Impression:? Moderate dysphagia 11/20/24: EXAMINATION:.? Recommendations: Regular but easy to chew diet with regular liquids but patient must use chin tuck posture with all eating and drinking to prevent pharyngeal residual and instances of laryngeal penetration and aspiration.? He was referral to outpatient speech therapy. 12/14/24:? CRP 3.6, ESR 134,? CPK 43, Aspergillus Niger IgE 0.31, very low level.? Aspergillus Niger antibody negative, Aspergillus flatus antibody negative.? Aspergillus fumigatus antibody negative.? Rheumatoid factor 12.9, anti CCP antibody less than 16.? TERRA screen positive with an anti-DNA antibody 27 (positive greater than 10), Anca screen negative, hypersensitivity pneumonitis panel negative.? 01/24/2025:? QuantiFERON gold negative.? IgE 691 normal less than 114, rheumatoid factor 12.9. IgG 693, IgM 90, IgA 212, all normal.? Aldolase 5.0 ?CTA chest PE protocol INDICATION: Hypoxia elevated d-dimer COMPARISON: 08/29/2024 and 10/11/2021. FINDINGS: No filling defects within the main or proximal pulmonary arteries. The thoracic aorta is unremarkable. No aneurysmal dilatation or dissection. The heart is of normal size, without pericardial effusion. Panlobular emphysematous disease is identified. Patchy groundglass opacification detected bilaterally. Small bilateral pleural effusions with adjacent compressive atelectasis Multiple subcentimeter areas of decreased attenuation within the liver, unchanged dating back to 10/11/2021. IMPRESSION: No pulmonary embolus. No aneurysmal dilatation or dissection within the thoracic aorta. Small bilateral pleural effusions with adjacent compressive atelectasis. 08/16/2024: Overnight oximetry on 3 L nasal cannula. The report in the computer status overnight oximetry on room air but this is mislabeled as the test was performed on 3 L. Recording duration 8 hours and 39 minutes. Basal saturation 92.1%. High saturation 96%. Low saturation 79%. Time with saturation less than or equal to 88% was 4 minutes and 58 seconds. I will continue oxygen 3 L at night. 06/24/2024: This is a 6 minute walk test. The test was performed and interpreted in accordance with the 2014 ERS/ATS task force guidelines. Of note, patient used to wheeled walker for stability and the testing was performed on his home portable oxygen concentrator at 3 L with pulse dose. Findings: The patient's resting 3 L oxygen saturation measured by pulse oximetry was 95% and heart rate was 80 bpm. Patient ambulated for 137 meters and oxygen saturation remained 91 to 92%. Heart rate at the end of the study was 94 bpm. The patient did not have rest or exertional hypoxemia on 3 L nasal cannula pulse dose with his portable oxygen concentrator. 02/25/24 - CTA chest (ER) - No PE identified. 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 There is patchy consolidation in the right middle and bilateral lower lobes with additional regions of tree-in-bud opacity scattered throughout both lungs consistent with multifocal pneumonia. There is associated bronchial wall thickening and mucous plugging in the bilateral lower lobes. Tiny left pleural effusion. No septal line thickening to suggest pulmonary edema. No pneumothorax. Mild cardiomegaly. Atherosclerotic coronary artery calcifications. No pericardial effusion. 02/25/2024: ABG on 4 L cannula 7.39/35/63 01/15/24 - Home O2 eval - Required 2L/min O2 with ambulation and none at rest. 12/16/23 - PFT The test was performed and results interpreted in accordance with the 2019 and 2005 ATS/ERS Task Force guidelines respectively using the Global Lung Function Initiative-2012 reference equations. Patient demonstrated good effort and cooperation. Reproducibility criteria were met. The quality of the pre bronchodilator spirometry maneuver was Grade A and post bronchodilator spirometry maneuver was Grade A. Findings: Spirometry:? There is decreased maximal expiratory airflow at all lung volumes with concave expiratory flow tracing.? The contour the inspiratory flow tracing is normal.? The pre bronchodilator FVC is 3.33 L, 82% predicted.? The pre bronchodilator FEV1 is 2.02 L, 68% predicted.? The pre bronchodilator FEV1: FVC ratio 61%.? The post bronchodilator FVC is 3.41 L, representing a 2% increase.? The post bronchodilator FEV1 is 2.09 L, representing a 3% increase.? The post bronchodilator FEV1:? FVC ratio 61%.? Plethysmography:? The total lung capacity is 6.43 L, 89% predicted.? The functional residual capacity is 4.14 L, 106% predicted.? The residual volume is 3.10 L, 115% predicted.? The residual volume:? Total lung capacity ratio is 48%.? Diffusing capacity:? The diffusing capacity unadjusted for hemoglobin and carboxyhemoglobin is 9.0, 37% predicted.? The diffusing capacity adjusted for alveolar volume is 2.29, 64% predicted. Comparison to previous pulmonary function testing on 01/01/2022 the post bronchodilator FVC has decreased from 4.38 L to 3.41 L.? The post bronchodilator FEV1 has decreased from 3.11 L to 2.09 L. the total lung capacity is decreased from 7.39 L to 6.43 L.? The functional residual capacity has decreased from 4.95 L to 4.14 L.? The residual volume is unchanged from 2.93 L to 3.10 L.? The diffusing capacity unadjusted for hemoglobin and carboxyhemoglobin is decreased from 14.9 to 9.0.? The diffusing capacity adjusted for alveolar volume decreased from 2.63 to 2.29 Impression: There is a mild obstructive abnormality. There is no significant improvement after inhaling a single dose of albuterol.? The increase in residual volume to total lung volume ratio is consistent with hyperinflation from an obstructive abnormality.? The diffusing capacity unadjusted for hemoglobin and carboxyhemoglobin is severely decreased and remains mildly decreased when adjusted for alveolar volume. Compared to prior pulmonary function testing on 01/01/2022 there has been a significant decrease in the FVC, FEV1, total lung capacity, functional residual capacity and diffusing capacity with no significant change in the residual volume. 09/16/23 - Home O2 eval - Required 2L/min O2 with ambulation and none at rest. 01/01/22 - Home O2 eval - Patient did not require supplemental oxygen at rest or with exertion. 01/01/22 - PFTs - Mild obstructive abnormality with normal FEV1 without significant improvement after inhaling a single dose of albuterol. Lung volumes normal. The diffusing capacity unadjusted for hemoglobin is moderately decreased and normalizes when adjusted for alveolar volume. 12/18/21 - Overnight oximetry on room air - Time with saturation less than or equal to 88% was 4.0 minutes. Patient does not qualify for supplemental oxygen at night. 10/10/2021 - ABG on 4L NC - 7.44/43/70. 10/20/21 - Chest XR - Persistent patchy bilateral airspace disease with possible improvement in the left lung, compatible with pneumonia. 10/11/2021 - CTA chest - Extensive bilateral pulmonary infiltrates and likely reactive hilar or mediastinal adenopathy. Small right pleural effusion. No evidence of pulmonary embolism. 10/11/2021 - Echo - LV systolic function mildly reduced, EF 45-50%. Grade I diastolic dysfunction. The inferior wall, inferoseptal wall, basal inferolateral wall, and mid inferolateral wall are hypokinetic. Mild LA enlargement. No pulmonary hypertension. Review of Systems Constitutional: Constitutional: Reports no additional constitutional complaints Eyes: Eyes: Reports no additional eye complaints ENT: Reports system reviewed and no additional complaints, except as documented Cardiovascular: Cardiovascular: Reports no additional cardiovascular complaints Respiratory: Respiratory: Reports no additional respiratory complaints Gastrointestinal: Gastrointestinal: Reports no additional gastrointestinal complaints Musculoskeletal: Musculoskeletal: Reports no additional musculoskeletal complaints Neurologic: Reports system reviewed and no additional complaints, except as documented Psychiatric: Psychiatric: Reports no additional psychiatric complaints Endocrine: Endocrine: Reports no additional endocrine complaints Hematologic/Lymphatic: Hematologic/Lymphatic: Reports no additional hematologic/lymphatic complaints Allergic/Immunologic: Allergic/Immunologic: Reports no additional allergic/immunologic complaints [facility] Past Medical History Medical History Heart failure with mildly reduced ejection fraction Aspergillosis Pseudomonas aeruginosa infection Mycobacterium avium-intracellulare complex Congestive heart failure Colon polyps Chronic obstructive pulmonary disease Gastroesophageal reflux disease Osteoarthritis Chronic kidney disease, stage 3 Benign prostatic hyperplasia Cancer of lower jaw bone (1986) Vitamin D deficiency Essential hypertension Depression Chronic hypoxic respiratory failure, on home oxygen therapy Erythema multiforme Essential tremor Hyperlipidemia 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 History of tobacco use Polio (1951) Other chronic pain Aortic stenosis Mild - Echo 05/15/2022 NSTEMI (non-ST elevated myocardial infarction) (08/2019) Ischemic cardiomyopathy Echocardiogram 09/2021: Mildly reduced left ventricular systolic function EF of 45-50%, grade 1 diastolic dysfunction, inferior wall inferior septal wall basal inferior wall and mid inferior lateral wall hypokinesis with mild left atrial and large Atherosclerotic heart disease of [place] coronary artery without angina pectoris Abdominal aortic aneurysm, without rupture Seen on CT scan on 02/09/2018 Restless legs syndrome Spinal stenosis, lumbar region without neurogenic claudication Surgical History Surgical History History of tonsillectomy and adenoidectomy History of repair of rotator cuff bilateral History of colonoscopy with polypectomy History of bowel resection due to obstruction Presence of coronary angioplasty implant and graft History of coronary artery stent placement X2 History of mandibular surgery (1986) reconstructive surgery right mandible related to cancer Family History Family History Mother Diabetes mellitus Acute myocardial infarction Father Colon cancer COPD (chronic obstructive pulmonary disease) Sibling Colon cancer Acute myocardial infarction Lung cancer COPD (chronic obstructive pulmonary disease) Sibling COPD (chronic obstructive pulmonary disease) Sibling Congestive heart failure Sibling Dementia Social History Social History (Updated 04/26/25 @ 01:48 by Luz Colon PA-C) Social History: Surrogate medical decision maker: Yessi Morgan, daughter. Code status: Full code. Smoking packs per day: 1.5 Smoking cigarettes per day: 30.0 Years smoked: 40 Smoking pack-years: 60.00 Smoking status: Former smoker Tobacco type: cigarettes Second hand tobacco smoke exposure: No Alcohol intake: never Substance use: never Substance use type: does not use Other substance usage details: quit alcohol in 2010 Last use: Last alcohol use 2010 Do You Feel Safe in your Home?: Yes Lack of Transportation: No Lack of Food: Never True Current Housing: I Have Housing Concerned About Future Housing: No Difficulty Paying Gas/Electric Bills: No Difficulty Paying for Meds: No Currently Unemployed: No Education: High School Diploma/GED Difficulty w/ Childcare or Family Care: No Living arrangements: with family Additional living arrangements comments: . Lives in [place] with son and [id number]. 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: retired Additional occupation/education comments: [employer] Spiritual care concerns: No Agree to blood products: Yes Meds Home Medications and Allergies Home Medications ?Medication ?Instructions ?Recorded ?Confirmed ?Type acetaminophen 500 mg tablet 1,000 mg PO Q6H PRN Pain 03/18/23 04/25/25 History (Tylenol Extra Strength) multivitamin 1 tablet PO DAILY 03/18/23 04/25/25 History cetirizine 10 mg capsule (Zyrtec) 10 mg PO DAILY PRN allergies 06/13/23 04/25/25 History aspirin 81 mg tablet,delayed 81 mg PO DAILY #90 tabs 06/15/23 04/25/25 Rx release polyethylene glycol 3350 17 gram 17 g PO QAM PRN Constipation #30 ea 06/15/23 04/25/25 Rx oral powder packet (Miralax) fenofibrate 160 mg tablet 160 mg PO DAILY #90 tabs 09/16/23 04/25/25 Rx losartan 50 mg tablet 50 mg PO DAILY #90 tabs 02/24/24 04/25/25 Rx nebulizer accessories #1 ea 04/12/24 04/25/25 Rx nebulizer and compressor #1 ea 04/12/24 04/25/25 Rx esomeprazole magnesium 20 mg See Rx Instructions .Route 04/28/24 04/25/25 Rx capsule,delayed release .COMPLEX #90 caps linaclotide 290 mcg capsule See Rx Instructions .Route 04/28/24 04/25/25 Rx (Linzess) .COMPLEX #90 caps albuterol sulfate 90 mcg/actuation 2 puff inhalation Q4H PRN 10/03/24 04/25/25 Rx aerosol inhaler Shortness Of Breath Or Wheezing #8.5 grams Saccharomyces boulardii 250 mg 250 mg PO TID #30 caps 11/06/24 04/25/25 Rx capsule (Florastor) simethicone 125 mg capsule (Gas-X 125 mg PO PRN 11/21/24 04/25/25 History Extra Strength) baclofen 10 mg tablet 10 mg PO Q12H PRN muscle spasm 12/02/24 04/25/25 History furosemide 40 mg tablet 60 mg (1.5 x 40 mg) PO DAILY #135 12/05/24 04/25/25 Rx tabs albuterol sulfate 2.5 mg/3 mL 2.5 mg (3 mL) inhalation Q4H PRN 12/08/24 04/25/25 Rx (0.083 %) solution for nebulization shortness of breath or wheezing #90 mL nitroglycerin 0.4 mg sublingual 0.4 mg sublingual Q5M PRN chest 12/08/24 04/25/25 Rx tablet pain #25 tabs bupropion HCl 150 mg tablet,12 hr 150 mg PO BID #180 tabs 12/28/24 04/25/25 Rx sustained-release metoprolol succinate 50 mg 50 mg PO HS #90 tabs 12/29/24 04/25/25 Rx tablet,extended release 24 hr hydroxyzine HCl 25 mg tablet 25 mg PO QID PRN anxiety #50 tabs 01/31/25 04/25/25 Rx trazodone 100 mg tablet 100 mg PO HS Insomnia #90 tabs 02/27/25 04/25/25 Rx sulfamethoxazole 800 2 tablet PO Q12H #28 tabs 03/02/25 04/25/25 Rx mg-trimethoprim 160 mg tablet tamsulosin 0.4 mg capsule 0.4 mg PO BID #180 caps 03/20/25 04/25/25 Rx lorazepam 0.5 mg tablet 0.5 mg PO BID PRN anxiety #60 tabs 03/21/25 04/25/25 Rx tobramycin 0.3 %-dexamethasone 0.1 1 drp EACH EYE QID #10 mL 04/05/25 04/25/25 Rx % eye drops,suspension morphine 30 mg tablet,extended 30 mg PO QAM #30 tabs 04/07/25 04/25/25 Rx release sulindac 200 mg tablet 200 mg PO BID #180 tabs 04/07/25 04/25/25 Rx atorvastatin 80 mg tablet 80 mg PO DAILY #90 tabs 04/11/25 04/25/25 Rx guaifenesin 600 mg tablet, 1,200 mg (2 x 600 mg) PO BID #120 04/14/25 04/25/25 Rx extended release 12 hr tabs sertraline 50 mg tablet 50 mg PO DAILY #90 tabs 04/20/25 04/25/25 Rx glycopyrrolate 9 mcg-formoterol See Rx Instructions .Route .COMPLEX 04/25/25 04/25/25 History 4.8 mcg HFA aerosol inhaler (Bevespi Aerosphere) Allergies Allergy/AdvReac Type Severity Reaction Status Date / Time clonazepam AdvReac Severe Drowsy Verified 04/25/25 21:34 roflumilast (From Daliresp) AdvReac Severe Diarrhea Verified 04/25/25 21:34 Vital Signs Vital Signs - 24 hr 04/25/25 15:45 04/25/25 15:52 04/25/25 15:52 Temperature 37.2 C Pulse Rate 88 90 Respiratory Rate 13 Blood Pressure 102/61 Pulse Oximetry 96 96 Oxygen Delivery Room Air Nasal Cannula Oxygen Flow Rate 6 04/25/25 15:57 04/25/25 17:39 04/25/25 17:42 Temperature 37.7 C H Pulse Rate 90 90 Respiratory Rate 21 H 24 H Blood Pressure 135/57 L 136/59 L Pulse Oximetry 96 96 97 Oxygen Delivery Nasal Cannula Oxygen Flow Rate 6 04/25/25 18:28 04/25/25 19:29 04/25/25 21:00 Temperature Pulse Rate 88 85 85 Respiratory Rate 15 16 21 H Blood Pressure 136/59 L Pulse Oximetry 96 98 94 Oxygen Delivery Oxygen Flow Rate 04/25/25 22:00 04/25/25 23:28 04/26/25 00:00 Temperature 36.8 C Pulse Rate 86 77 Respiratory Rate 17 Blood Pressure 134/98 H Pulse Oximetry 91 96 Oxygen Delivery Nasal Cannula Oxygen Flow Rate 5 04/26/25 00:00 04/26/25 00:00 04/26/25 02:00 Temperature Pulse Rate 71 66 Respiratory Rate Blood Pressure Pulse Oximetry 99 Oxygen Delivery Nasal Cannula Oxygen Flow Rate 5 04/26/25 02:57 04/26/25 04:00 04/26/25 04:00 Temperature Pulse Rate 68 72 Respiratory Rate Blood Pressure Pulse Oximetry 100 Oxygen Delivery Nasal Cannula Oxygen Flow Rate 5 04/26/25 04:00 04/26/25 06:00 04/26/25 07:55 Temperature 36.5 C 36.6 C Pulse Rate 71 68 69 Respiratory Rate 17 18 Blood Pressure 146/57 H 135/81 Pulse Oximetry 94 100 Oxygen Delivery Oxygen Flow Rate 04/26/25 08:30 04/26/25 09:15 04/26/25 09:15 Temperature Pulse Rate 83 83 Respiratory Rate 20 Blood Pressure Pulse Oximetry 98 Oxygen Delivery Nasal Cannula Oxygen Flow Rate 3 04/26/25 10:00 Temperature Pulse Rate 67 Respiratory Rate Blood Pressure Pulse Oximetry Oxygen Delivery Oxygen Flow Rate Exam Const: General: cooperative, healthy appearing and comfortable Orientation/consciousness: oriented to person, oriented to place and oriented to time HENMT: Head: normal to inspection Ears: hearing grossly normal bilaterally Eyes: General: appearance normal, both eyes and all related structures Neck: Neck: normal visual inspection Chest: Chest palpation & inspection: normal inspection of the chest Resp: Effort & Inspection: normal respiratory effort and able to speak in complete sentences Auscultation: crackles, no rales, no rhonchi, wheezes and lung sounds not diminished Cardio: Jugular venous distension: no JVD GI: Inspection: normal to inspection GI Palp: No abdominal tenderness Skin: General skin exam: normal color Neuro: General: oriented to person, oriented to place and oriented to time Extrem: General: normal to inspection and no edema Psych: Appearance: grossly normal Results Laboratory Findings 04/26/25 04:25 04/26/25 04:25 ABG, PT/INR, D-dimer: ABG ABG pH 7.428 (7.350-7.450) 04/25/25 16:04 ABG pCO2 45.0 mmHg (35.0-45.0) 04/25/25 16:04 ABG pO2 81.5 mmHg (80.0-100.0) 04/25/25 16:04 ABG O2 Saturation 96.2 % (95.0-100.0) 04/25/25 16:04 PT/INR, D-dimer PT 16.2 Seconds (11.1-14.7) H 04/25/25 15:55 INR 1.3 04/25/25 15:55 D-Dimer 1.94 ug/mL (<0.48) H 04/26/25 08:07 Abnormal lab findings: Abnormal Labs 04/25/25 04/25/25 04/25/25 15:55 16:04 17:47 WBC 15.3 H RBC 3.39 L Hgb 9.8 L Hct 32.5 L MCHC 30.2 L MPV 10.5 H Neutrophils % (Manual) 88 H Lymphocytes % (Manual) 4.0 L Abs Neuts (Manual) 13.77 H Abs Lymphs (Manual) 0.61 L Abs Monocytes (Manual) 0.91 H PT 16.2 H APTT 38.0 H D-Dimer ABG HCO3 29.1 H Sodium Carbon Dioxide 31 H BUN 27 H D Glucose 134 H Alkaline Phosphatase 410 H NT-Pro-B Natriuret Pep 396 H Albumin Urine Ketones Trace H Urine Bilirubin 1+ H Leukocyte Esterase Rfl Trace H 04/26/25 04/26/25 04:25 08:07 WBC 13.5 H RBC 3.24 L Hgb 9.4 L Hct 31.1 L MCHC 30.2 L MPV 10.9 H Neutrophils % (Manual) Lymphocytes % (Manual) Abs Neuts (Manual) Abs Lymphs (Manual) Abs Monocytes (Manual) PT APTT D-Dimer 1.94 H ABG HCO3 Sodium 136 L Carbon Dioxide BUN 28 H Glucose 177 H Alkaline Phosphatase 311 H NT-Pro-B Natriuret Pep Albumin 3.4 L Urine Ketones Urine Bilirubin Leukocyte Esterase Rfl Diagnostic Findings Additional studies: ITS Impressions Chest X-Ray 04/25/25 16:43 Impression: 1: Extensive bilateral airspace disease may represent edema and/or pneumonia. 2: Small right pleural effusion.
[2025-04-26] MEDS: IPRATROPIUM 0.5 MG/ALBUTEROL SULFATE 2.5 MG AMPUL.NEB 3 ML INHALATION ×2 (15:31→19:55)
[2025-04-26] MEDS: polyethylene glycoL 3350 17 GM POWD.PACK PO (17:17)
[2025-04-26] MEDS: cefTRIAXone 2 GM/NS 100 ML 2 GM/100 ML BAG IVPB (17:19)
[2025-04-26] MEDS: AZITHROMYCIN 500 MG/NS 250 ML 500 MG/250 ML BAG 250 MG IVPB (18:10)
[2025-04-26] MEDS: SULFAMETHOXAZOLE/TRIMETHOPRIM 800/160 MG DS TABLET 2 TAB PO (20:35)
[2025-04-26] MEDS: traZODone HCL 50 MG TABLET 100 MG PO (20:36)
[2025-04-27] VITALS (27 sets, daily range): BP systolic 114–139; BP diastolic 42–74; PULSE 65–82; RESP 14–22; TEMP 36.4–36.8; O2SAT 92–98
[2025-04-27] MEDS: hydrOXYzine HCL 25 MG TABLET PO
[2025-04-27] MEDS: IPRATROPIUM 0.5 MG/ALBUTEROL SULFATE 2.5 MG AMPUL.NEB 3 ML INHALATION ×4 (02:29→20:49)
[2025-04-27 03:13] LABS: GGT 344 U/L (3-70)
[2025-04-27 04:33] LABS: Basophils Percent Auto 0.1 % (0.2-1.2); Eosinophils Percent Auto 0.2 % (0-4.4); Hematocrit 28.7 % (42.0-52.0); Hemoglobin 8.8 g/dL (14.0-18.0); Immature Granulocyte Absolute 0.03 K/mm3 (0.00-0.031); Immature Granulocyte Percent A 0.4 % (0-0.5); Lymphocytes Absolute Auto 0.95 K/mm3 (0.9-3.2); Lymphocytes Percent Auto 11.8 % (18.3-44.2); Mean Corpuscular HGB Conc 30.7 g/dl (32-36); Mean Corpuscular Hemoglobin 29.5 pg (26-34); Mean Corpuscular Volume 96.3 fl (80-100); Mean Platelet Volume 10.5 fl (7.4-10.4); Monocytes Absolute Auto 0.7 K/mm3 (0.1-0.6); Monocytes Percent Auto 8.1 % (2.6-8.5); Neutrophils Absolute Auto 6.4 K/mm3 (1.3-6.7); Neutrophils Percent Auto 79.4 % (45.5-73.1); Platelet Count Result 207 k/mm3 (150-375); Red Blood Count 2.98 M/mm3 (4.6-6.20); Red Cell Distribution Width 14.6 % (11.5-14.5); White Blood Count 8.1 K/mm3 (4.5-10.0)
[2025-04-27 04:56] LABS: Alanine Aminotransferase 25 U/L (6-50); Albumin Level 3.3 g/dL (3.5-5.1); Alkaline Phosphatase 267 U/L (38-126); Anion Gap 5 mmol/L (4-12); Aspartate Amino Transferase 42 U/L (17-59); Bilirubin,Total 0.3 mg/dL (0.2-1.3); Blood Urea Nitrogen 27 mg/dL (9-20); Calcium 9.2 mg/dL (8.4-10.2); Carbon Dioxide 32 mmol/L (22-30); Chloride 101 mmol/L (98-107); Estimated CRCL calculation 41 ml/min; Estimated Glomerular Filt Rate 50; Glucose 102 mg/dL (65-110); Magnesium 1.9 mg/dL (1.6-2.3); Potassium 4.2 mmol/L (3.4-5.0); Sodium 138 mmol/L (137-145); Total Protein 6.4 g/dL (6.3-8.2)
[2025-04-27] MEDS: SODIUM CHLOR 3% 15 ML NEB (RESPIRATORY THERAPY) 6 ML INHALATION (05:16)
[2025-04-27] MEDS: LINACLOTIDE 145 MCG CAPSULE 290 MCG PO (05:46)
[2025-04-27] MEDS: MORPHINE SULFATE (*CRX) 30 MG TABCR PO (05:47)
[2025-04-27 08:28] LABS: NT Pro B Type Natriuretic Pept 1060 pg/mL (19.9-100)
[2025-04-27] MEDS: TOBRAMYCIN/DEXAMETHASONE OP 2.5 ML BTL 1 DROP EACH EYE ×4 (09:45→23:37)
[2025-04-27] MEDS: FENOFIBRATE NANOCRYSTALLIZED 145 MG TABLET PO (10:34)
[2025-04-27] MEDS: ATORVASTATIN 40 MG TABLET 80 MG PO (10:34)
[2025-04-27] MEDS: ASPIRIN 81 MG ENTERIC TABLET PO (10:34)
[2025-04-27] MEDS: SULFAMETHOXAZOLE/TRIMETHOPRIM 800/160 MG DS TABLET 2 TAB PO ×2 (10:35→20:10)
[2025-04-27] MEDS: PANTOPRAZOLE 40 MG TABLET PO (10:35)
[2025-04-27] MEDS: guaiFENesin 12 HR 600 MG TABCR 1200 MG PO ×2 (10:35→20:09)
[2025-04-27] MEDS: MULTIVITAMINS THERAPEUTIC TAB (*BKC) 1 TABLET PO (10:36)
[2025-04-27] MEDS: buPROPion HCL SR (12 HR) 150 MG TAB PO ×2 (10:36→20:10)
[2025-04-27] MEDS: ENOXAPARIN 40 MG/0.4 ML SYRINGE SUB-Q (10:36)
[2025-04-27] MEDS: SERTRALINE HCL 50 MG TABLET PO (10:36)
--- NOTE | 2025-04-27 10:59 | P.PNIM_ITS ---
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 * Duonebs q 6. * Pulmonology following, appreciate recommendations. * Patient is on [facility] wait list for transfer for ID. * WBC 15.3>13.5>8.1, improving. * D dimer 1.94. * Chest CTA: IMPRESSION: 1. Multifocal airspace disease, consistent with pneumonia. 2: Bilateral pleural effusions, right greater than left. 3: Mediastinal lymphadenopathy, likely reactive. 4.: Pulmonary artery enlargement, consistent with pulmonary hypertension. 5: Emphysema. * 02@3LNC with Sa02 98%. * 04/27 Modified Barium swallow today showed: FINDINGS: Oral stage: Adequate function. Pharyngeal stage: There is laryngeal elevation and adduction. Reduced tongue base retraction and pharyngeal squeeze. There is trace vallecular and piriform sinus residue. There pharyngeal wall residue. There is laryngeal penetration without aspiration with uncontrolled thin liquids from a cup. There is cricopharyngeal dysfunction. Cervical/esophageal stage: Adequate function. IMPRESSION: Pharyngeal dysphagia with laryngeal penetration without aspiration with uncontrolled thin liquids. Please correlate with speech pathologist findings and specific feeding recommendations. * Add PT/OT * Blood cultures no growth to date. * Extended respiratory pathogen panel, urine Legionella antigen, urine pneumococcal antigen, serum mycoplasma IgM, sputum for bacterial Gram stain and culture Shows Gram-positive cocci, Gram-negative coccobacilli Identification pending. Sputum for AFB all pending. (2) Acute on chronic respiratory failure with hypoxia: Code(s): J96.21 - Acute and chronic respiratory failure with hypoxia Status: Acute Assessment and Plan: * 02@ 3LNC with Sa02 98%. (3) Elevated alkaline phosphatase level: Code(s): R74.8 - Abnormal levels of other serum enzymes Status: Acute Assessment and Plan: * 410>311>267, improving. (4) Chronic obstructive pulmonary disease: Code(s): J44.9 - Chronic obstructive pulmonary disease, unspecified Status: Acute Assessment and Plan: * Duonebs q 6. * Extended respiratory pathogen panel, urine Legionella antigen, urine pneumococcal antigen, serum mycoplasma IgM collected. * Guaifenesin 1,200 mg PO Q 12 (5) Essential hypertension: Code(s): I10 - Essential (primary) hypertension Status: Acute Assessment and Plan: * Blood pressure 118/42.. * Metoprolol Succinate 50 mg PO HS. (6) Heart failure with mildly reduced ejection fraction: Code(s): I50.22 - Chronic systolic (congestive) heart failure Status: Acute Assessment and Plan: * Furosemide 60 mg PO daily, held today creatinine 1.36. * Metoprolol Succinate 50 mg PO HS. (7) Chronic anemia: Code(s): D64.9 - Anemia, unspecified Status: Acute Assessment and Plan: * Current H&H 8.8/28.7. Subjective Date/time seen: 04/27/25 10:59 Interval history: Patient sitting up in bed. Patient denies chest pain, palpitations, shortness of breath, dizziness, nausea, or vomiting. Patient reports coughing up stern cloudy sputum. Review of Systems Review of Systems: All systems reviewed & are unremarkable except as noted in HPI and below Exam Const: General: comfortable and no acute distress Resp: Effort & Inspection: normal respiratory effort Other: Slightly diminished, no wheezes today. Cardio: Rate: regular rate Rhythm: regular rhythm Other: Telemetry- SR 66. GI: GI Palp: Yes Soft to palpation Auscultation: normal bowel sounds Neuro: Speech: normal speech Extrem: General: no pedal edema Psych: Mental Status: mental status grossly normal Affect: normal affect Objective Data Vital Signs Vital Signs: Vital Signs - 24 hr 04/26/25 12:00 04/26/25 12:00 04/26/25 12:00 Temperature 98.1 F Pulse Rate 69 64 Respiratory Rate 18 Blood Pressure 116/43 L Pulse Oximetry 96 94 Oxygen Delivery Nasal Cannula Oxygen Flow Rate 3 04/26/25 14:00 04/26/25 15:31 04/26/25 15:31 Temperature Pulse Rate 68 65 Respiratory Rate 20 Blood Pressure Pulse Oximetry 95 Oxygen Delivery Nasal Cannula Oxygen Flow Rate 3 04/26/25 15:39 04/26/25 15:55 04/26/25 16:00 Temperature 98.1 F Pulse Rate 68 64 Respiratory Rate 20 18 Blood Pressure 121/41 L Pulse Oximetry 91 91 Oxygen Delivery Nasal Cannula Oxygen Flow Rate 3 04/26/25 19:58 04/26/25 19:59 04/26/25 20:00 Temperature Pulse Rate 75 Respiratory Rate 20 Blood Pressure Pulse Oximetry 97 93 Oxygen Delivery Nasal Cannula Nasal Cannula Oxygen Flow Rate 3 3 04/26/25 20:00 04/26/25 20:07 04/26/25 20:23 Temperature 98.2 F Pulse Rate 78 83 76 Respiratory Rate 20 20 Blood Pressure 130/45 L Pulse Oximetry 94 Oxygen Delivery Oxygen Flow Rate 04/26/25 20:35 04/26/25 22:00 04/27/25 00:00 Temperature Pulse Rate 82 68 Respiratory Rate Blood Pressure Pulse Oximetry 93 Oxygen Delivery Nasal Cannula Oxygen Flow Rate 3 04/27/25 00:00 04/27/25 00:07 04/27/25 02:00 Temperature 97.6 F Pulse Rate 75 66 65 Respiratory Rate 20 Blood Pressure 130/47 L Pulse Oximetry 93 Oxygen Delivery Oxygen Flow Rate 04/27/25 02:31 04/27/25 02:43 04/27/25 04:00 Temperature Pulse Rate 73 80 Respiratory Rate 20 20 Blood Pressure Pulse Oximetry 93 Oxygen Delivery Nasal Cannula Oxygen Flow Rate 3 04/27/25 04:00 04/27/25 04:00 04/27/25 05:17 Temperature 98.2 F Pulse Rate 66 68 72 Respiratory Rate 20 20 Blood Pressure 133/56 L Pulse Oximetry 96 Oxygen Delivery Oxygen Flow Rate 04/27/25 05:27 04/27/25 06:00 04/27/25 07:46 Temperature 97.8 F Pulse Rate 69 67 68 Respiratory Rate 20 20 Blood Pressure 133/74 Pulse Oximetry 93 Oxygen Delivery Oxygen Flow Rate Intake/Output Intake/Output: Intake & Output 04/24/25 04/25/25 04/26/25 04/27/25 23:59 23:59 23:59 23:59 Intake Total 300 1860 480 Output Total 1625 5065 Balance 300 235 795 Meds/Results Medications: Active Medications Generic Name Dose Route Start Last Admin Trade Name Freq PRN Reason Stop Dose Admin Acetaminophen 650 mg 04/26/25 01:49 04/26/25 03:35 Acetaminophen 325 Mg Tablet PO 650 mg Q6H PRN Administration Mild Pain (1-3) or Fever Albuterol 2.5 mg 04/26/25 01:51 Albuterol Sulfate Neb 2.5 Mg/3 Ml Inh INHALATION Q4HRT PRN shortness of breath or wheezing Albuterol/Ipratropium 3 ml 04/26/25 14:00 04/27/25 08:40 Ipratropium 0.5 Mg/Albuterol Sulfate 2.5 Mg Ampul.Neb 3 Ml INHALATION 3 ml Q6HRT GIOVANNY Administration Aspirin 81 mg 04/26/25 09:00 04/27/25 10:34 Aspirin 81 Mg Enteric Tablet PO 81 mg DAILY GIOVANNY Administration Atorvastatin Calcium 80 mg 04/26/25 09:00 04/27/25 10:34 Atorvastatin 40 Mg Tablet PO 80 mg DAILY GIOVANNY Administration Baclofen 10 mg 04/26/25 01:51 Baclofen 10 Mg Tablet PO Q12H PRN muscle spasm Bupropion HCl 150 mg 04/26/25 09:00 04/27/25 10:36 Bupropion Hcl Sr (12 Hr) 150 Mg Tab PO 150 mg Q12HR GIOVANNY Administration Docusate Sodium 100 mg 04/26/25 10:32 Docusate Sodium 100 Mg Capsule PO Q12H PRN Constipation Enoxaparin Sodium 40 mg 04/26/25 09:00 04/27/25 10:36 Enoxaparin 40 Mg/0.4 Ml Syringe SUB-Q 40 mg DAILY GIOVANNY Administration Fenofibrate 145 mg 04/26/25 09:00 04/27/25 10:34 Fenofibrate Nanocrystallized 145 Mg Tablet PO 145 mg QAM GIOVANNY Administration Furosemide 60 mg 04/26/25 09:00 04/26/25 08:54 Furosemide 20 Mg Tablet PO 60 mg DAILY GIOVANNY Administration Guaifenesin 1,200 mg 04/26/25 09:00 04/27/25 10:35 Guaifenesin 12 Hr 600 Mg Tabcr PO 1,200 mg Q12HR GIOVANNY Administration Hydroxyzine HCl 25 mg 04/26/25 01:51 04/27/25 00:00 Hydroxyzine Hcl 25 Mg Tablet PO 25 mg QID PRN Administration anxiety Azithromycin 500 mg in 250 mls @ 250 mls/hr 04/26/25 19:00 04/26/25 19:00 Zithromax IVPB Infused Q24H GIOVANNY Infusion Ceftriaxone Sodium 2 gm in 100 mls @ 200 mls/hr 04/26/25 18:00 04/26/25 18:06 Rocephin 2 Gm/Ns 100 Ml IVPB Infused Q24H GIOVANNY Infusion Linaclotide 290 mcg 04/26/25 06:30 04/27/25 05:46 Linaclotide 145 Mcg Capsule PO 290 mcg DAILY@0630 GIOVANNY Administration Loratadine 10 mg 04/26/25 01:59 Loratadine 10 Mg Tablet PO DAILY PRN allergies Lorazepam 0.5 mg 04/26/25 01:51 Lorazepam (*Crx) 0.5 Mg Tablet PO BID PRN anxiety Metoprolol Succinate 50 mg 04/26/25 02:00 04/26/25 20:35 Metoprolol Succinate Ext Rel 50 Mg Tabcr PO 50 mg HS GIOVANNY Administration Miscellaneous Information 1 each 04/26/25 00:01 04/26/25 02:58 Sulindac 200 Mg Tablet Is Noformulary, Can Patient Bring From Home? XX 05/26/25 00:00 Not Given CLARIFY GIOVANNY Morphine Sulfate 30 mg 04/26/25 06:00 04/27/25 05:47 Morphine Sulfate (*Crx) 30 Mg Tabcr PO 30 mg DAILY@0600 GIOVANNY Administration Multivitamins Therapeutic 1 tablet 04/26/25 09:00 04/27/25 10:36 Multivitamins Therapeutic Tab (*Bkc) PO 1 tablet DAILY GIOVANNY Administration Non-Formulary Medication 200 mg 04/26/25 09:00 Sulindac PO 05/26/25 08:59 BID GIOVANNY Pantoprazole Sodium 40 mg 04/26/25 09:00 04/27/25 10:35 Pantoprazole 40 Mg Tablet PO 40 mg QAM GIOVANNY Administration Polyethylene Glycol 17 gm 04/26/25 01:51 04/26/25 17:17 Polyethylene Glycol 3350 17 Gm Powd.Pack PO 17 gm QAM PRN Administration Constipation Sertraline HCl 50 mg 04/26/25 09:00 04/27/25 10:36 Sertraline Hcl 50 Mg Tablet PO 50 mg DAILY GIOVANNY Administration Sodium Chloride 6 ml 04/26/25 05:00 04/27/25 05:16 Sodium Chlor 3% 15 Ml Neb (Respiratory Therapy) INHALATION 04/28/25 05:01 6 ml DAILY@0500 GIOVANNY Administration Tamsulosin HCl 0.4 mg 04/26/25 09:00 04/26/25 20:36 Tamsulosin Hcl 0.4 Mg Capsule PO 0.4 mg Q12HR GIOVANNY Administration Tobramycin/Dexamethasone 1 drop 04/26/25 09:00 04/27/25 09:45 Tobramycin/Dexamethasone Op 2.5 Ml Btl EACH EYE 1 drop QID GIOVANNY Administration Trazodone HCl 100 mg 04/26/25 21:00 04/26/25 20:36 Trazodone Hcl 50 Mg Tablet PO 100 mg HS GIOVANNY Administration Trimethoprim/Sulfamethoxazole 2 tab 04/26/25 21:00 04/27/25 10:35 Sulfamethoxazole/Trimethoprim 800/160 Mg Ds Tablet PO 2 tab Q12HR GIOVANNY Administration Radiology Results: ITS Impressions Chest X-Ray 04/25/25 16:43 Impression: 1: Extensive bilateral airspace disease may represent edema and/or pneumonia. 2: Small right pleural effusion. Chest CTA 04/26/25 13:46 IMPRESSION: 1. Multifocal airspace disease, consistent with pneumonia. 2: Bilateral pleural effusions, right greater than left. 3: Mediastinal lymphadenopathy, likely reactive. 4.: Pulmonary artery enlargement, consistent with pulmonary hypertension. 5: Emphysema. Labs Labs: Laboratory Results - last 24 hr 04/26/25 04/27/25 04/27/25 04:25 03:59 04:01 WBC 8.1 RBC 2.98 L Hgb 8.8 L Hct 28.7 L MCV 96.3 MCH 29.5 MCHC 30.7 L RDW 14.6 H Plt Count 207 MPV 10.5 H Immature Gran % (Auto) 0.4 Neut % (Auto) 79.4 H Lymph % (Auto) 11.8 L Dundy % (Auto) 8.1 Eos % (Auto) 0.2 Baso % (Auto) 0.1 L Lymph # (Auto) 0.95 Dundy # (Auto) 0.7 H Eos # (Auto) 0.0 Baso # (Auto) 0.0 Abs Immat Gran (auto) 0.03 Absolute Neuts (auto) 6.4 Absolute Nucleated RBC 0.000 Nucleated RBC % 0.0 Sodium 138 Potassium 4.2 Chloride 101 Carbon Dioxide 32 H Anion Gap 5 BUN 27 H Creatinine 1.36 H Estim Creat Clear Calc 41 Estimated GFR 50 L Glucose 102 Calcium 9.2 Magnesium 1.9 Total Bilirubin 0.3 GGT 344 H AST 42 ALT 25 Alkaline Phosphatase 267 H NT-Pro-B Natriuret Pep 1060 H Total Protein 6.4 Albumin 3.3 L Procalcitonin 0.5 Quality VTE Prophylaxis VTE prophylaxis: pharmacologic ordered
--- NOTE | 2025-04-27 12:11 | PM.PNPUL ---
Progress Note: A&P Assessment and Plan (1) Chronic obstructive pulmonary disease: Code(s): J44.9 - Chronic obstructive pulmonary disease, unspecified Status: Acute Assessment and Plan: Gold grade 2 group E COPD Regarding his COPD, patient with 60 pack year tobacco use quit in 2019, alpha 1 anti trypsin genotype MM, [id number] apical predominant centrilobular and paraseptal emphysema on his CT scan from 10/11/2021. Of note he has had COVID pneumonia on 09/10/2021 and Pseudomonas pneumonia on 10/10/2021. His PFTs from 12/16/2023 show mild obstruction with FEV1 68%, ratio 61%. No bronchodilator response, hyperinflation, severely decreased DLCO the remains mildly decreased when adjusted for alveolar volume. Compared to 01/01/2022 had been a significant decrease in the FVC, FEV1, total lung capacity, functional residual capacity and diffusing capacity. When admitted for pneumonia had an ABG on 02/25/2024 on 3 L nasal cannula 7.44/36/67. 10/04/2024: ABG on 2 L 7.43/41/75. 10/04/2024: White blood cell count 11.1 eosinophils 3.2%=355/uL. 04/09/2024 white blood cell count 11.1, eosinophils 0.4%=44/uL. Tested positive for COVID 11/13/2023 treated with Paxlovid, rebound symptoms treated with clarithromycin and doxycycline. Hospitalize 02/25/2024 for pneumonia with sputum showing Haemophilus treated with steroids. Hospitalized 04/10/24 to 04/12/24 for COPD exacerbation treated with prednisone and azithromycin. 09/08/2024 cold symptoms, treated with doxycycline and prednisone taper. 10/04/2024 ED visit for shortness of breath treated for fluid overload and COPD exacerbation with prednisone and Augmentin. 11/04 admitted to [facility] with congestive heart failure and pneumonia no evidence of COPD exacerbation. 11/20 admitted to [facility] for shortness of breath, fluid overload and possible pneumonia. 12/02/2024 through 12/06/2024 admitted to [facility] treated for pneumonia. sputum from 12/17/2024 grew out Alcaligenes xylosoxidans sensitive to meropenem and Septra, intermediate to Zosyn, resistant to ceftaz, levofloxacin and imipenem. 03/02/2025 patient with increased phlegm production and treated for bronchitis with Septra DS 2 tablets twice a day x 7 days. 04/25/2025: patient presented to the hospital With fever, increased cough, increased phlegm production, leukocytosis, chest x-ray with worsening bibasilar infiltrates. 04/26/2025: The patient tells me he is breathing better at rest. He says that his cough and phlegm production are the same. His white blood cell count is 13.5, his creatinine is 1.04. His D-dimer is 1.94. His saturations on 5 L nasal cannula are 98%. I decreased him to 3 L nasal cannula saturations were 96%. He was in no respiratory distress. He had wheezes on exam. CT angiogram of the chest ordered. 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 the patient does have wheezing today. I would like to avoid inhaled oral steroids given his SNEHA history. I will discontinue his Anoro Ellipta in place him on DuoNebs q.6 hours. Goal saturation 90-94%. Will adjust oxygen accordingly. D-dimer is positive and I have been ordered CT angiogram of the chest. Her continue guaifenesin 1200 mg p.o. b.i.d.. Will order Cornet flutter valve. I have sent and extended respiratory pathogen panel, urine Legionella antigen, urine pneumococcal antigen, serum mycoplasma IgM Looking for alternative infectious etiologies. I have sent sputum for bacterial Gram stain and culture as well as AFB. 04/27/2025: The patient tells me he is doing much better. Says that he is breathing better and breathing better than he has in the last year. His cough is normal with minimal phlegm production today. There is no hemoptysis. Patient has been walking to the bathroom and says his dyspnea on exertion is better. Currently he is on 3 L nasal cannula saturations 93%. He is afebrile. White blood cell count 8.1, creatinine 1.36. He diuresed 15 mL yesterday and cumulative diuresis since admission is 750 mL. His weight today is 80.3. 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 No wheezing today and will continue DuoNebs q.6 hours. Guaifenesin 1200 mg p.o. q.day and Cornet flutter valve to help with expectoration. His creatinine has increased to 1.36 and I will hold his Lasix today. Extended respiratory pathogen panel, urine Legionella antigen, urine pneumococcal antigen, serum mycoplasma IgM, sputum for bacterial Gram stain and culture Shows Gram-positive cocci, Gram-negative coccobacilli Identification pending. Sputum for AFB all pending. Discussed with Elenita Cardozo, will follow with you. (2) Acute on chronic respiratory failure with hypoxia: Code(s): J96.21 - Acute and chronic respiratory failure with hypoxia Status: Acute Assessment and Plan: Recently patient has been using 7 L nasal cannula at rest with saturations 95-97% at home. 7 L with activity with saturations 92% at home and he has been sleeping with 7 L. ABG in the emergency room on 6 L 7.43/45/82. There is no significant hypercarbic respiratory failure. 04/26/2025: On 5 L nasal cannula saturations were 93%. I decreased him to 3 L nasal cannula and his saturations were 96%. Plan: Goal saturation 90-94%, adjust oxygen accordingly. 04/27/25: Currently on 3 L nasal cannula with saturations 93%. Plan: Goal 90-94%, wean as tolerated. I will check an overnight oximetry tonight on 4 L nasal cannula. 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 Sputum on 12/15/2024 with AFB verified on 01/14/25 and grew SNEHA on 03/03/25. Sensitivities 03/20/25. On 03/20/25 patient referred to [facility] with appointment scheduled for 05/02/2025. Sputum on 12/16/2024 with AFB verified on 01/20/25 and grew SNEHA on 02/01/25.?Sensitivities 03/28/25. QuantiFERON gold was negative on 01/24/25. ORGANISM: MYCOBACTERIUM AVIUM COMPLEX AMIKACIN: 16 S mcg/mL AMIKACIN (LIPOSOMAL, INHALED): 16 S mcg/mL CIPROFLOXACIN: >8 mcg/mL CLARITHROMYCIN: 2 S mcg/mL CLOFAZIMINE: 0.25 mcg/mL DOXYCYCLINE: >8 mcg/mL LINEZOLID: 16 I mcg/mL MINOCYCLINE: >8 mcg/mL MOXIFLOXACIN: 4 R mcg/mL RIFABUTIN: 1 mcg/mL RIFAMPIN: >4 mcg/mL STREPTOMYCIN: >32 * This is a corrected result. * A prior result that was reported as final has been changed. 1. Mycobacterium avium complex M.I.C. RX --------- --- Rifampin AFB >4 S Streptomycin AFB R Amikacin AFB 16 S Moxifloxacin AFB R 04/25/2025: Recommended patient be transferred to [facility] so he could be evaluated by Infectious Disease team to determine if he needs active treatment for his SNEHA and if so which medicines would be recommended. 04/26/25: patient is afebrile today. Patient feels improved with ceftriaxone cam a azithromycin and Septra. Plan: I will send repeat sputum for AFB. Recommend transfer to [facility] to be evaluated by Infectious Disease team. CT angiogram of the chest ordered. later in the day patient has CT angiogram of the chest. My read. I have compared this to CT scans from 11/20/2024 and 08/29/2024 and 02/25/2024. Current CT shows no PE, moderate apical predominant centrilobular emphysema, small loculated right pleural effusion increased from 11/20/2024, worsening consolidation and infiltrates in the right lower lobe compared to 11/20/2024 and 02/25/[address]24. [address] scan on 02/25/2024 currently there are some areas of improved consolidation in the right lower lobe and some new areas with worsening consolidations in the right lower lobe. There is unchanged consolidation in the posterior left lower lobe with no change compared to 11/20/2024, 08/29/2024 and that have improved from 02/25/2024. Currently there are patchy consolidations in the right middle lobe some which were present on 11/20/2024 and some that are new. There were no infiltrates on 08/29/2024 in the right middle lobe. 04/27/25: sputum for AFB x2 have made it to the lab. Results pending Patient with persistent as well as fleeting infiltrates from his CT scans from 02/25/2024, 08/29/2024, 11/20/2024 and 04/26/2025. I suspect this is related to his SNEHA. patient denies any aspiration events at home. I will check a modified barium swallow to ensure that there is no aspiration to account for these fleeting infiltrates. Plan: Recommend transfer to [facility] to be evaluated by Infectious Disease team. Subjective Date/time seen: 04/27/25 12:11 Interval history: 04/26/2025: This is a new pulmonary consult for COPD and MAC. 80-year-old with a history of coronary artery disease status post non ST elevation [place] August of 2019, ischemic cardiomyopathy, hypertension, hyperlipidemia, Gold grade 2 group B COPD on home oxygen 7 L at rest, with activity and with sleep and MAC lung disease. Regarding his COPD, patient with 60 pack year tobacco use quit in 2019, alpha 1 anti trypsin genotype MM, [id number] apical predominant centrilobular and paraseptal emphysema on his CT scan from 10/11/2021. Of note he has had COVID pneumonia on 09/10/2021 and Pseudomonas pneumonia on 10/10/2021. His PFTs from 12/16/2023 show mild obstruction with FEV1 68%, ratio 61%. No bronchodilator response, hyperinflation, severely decreased DLCO the remains mildly decreased when adjusted for alveolar volume. Compared to 01/01/2022 had been a significant decrease in the FVC, FEV1, total lung capacity, functional residual capacity and diffusing capacity. When admitted for pneumonia had an ABG on 02/25/2024 on 3 L nasal cannula 7.44/36/67. 10/04/2024: ABG on 2 L 7.43/41/75. 10/04/2024: White blood cell count 11.1 eosinophils 3.2%=355/uL. 04/09/2024 white blood cell count 11.1, eosinophils 0.4%=44/uL. Tested positive for COVID 11/13/2023 treated with Paxlovid, rebound symptoms treated with clarithromycin and doxycycline. Hospitalize 02/25/2024 for pneumonia with sputum showing Haemophilus treated with steroids. Hospitalized 04/10/24 to 04/12/24 for COPD exacerbation treated with prednisone and azithromycin. 09/08/2024 cold symptoms, treated with doxycycline and prednisone taper. 10/04/2024 ED visit for shortness of breath treated for fluid overload and COPD exacerbation with prednisone and Augmentin. 11/04 admitted to [facility] with congestive heart failure and pneumonia no evidence of COPD exacerbation. 11/20 admitted to [facility] for shortness of breath, fluid overload and possible pneumonia. 12/02/2024 through 12/06/2024 admitted to [facility] treated for pneumonia. sputum from 12/17/2024 grew out Alcaligenes xylosoxidans sensitive to meropenem and Septra, intermediate to Zosyn, resistant to ceftaz, levofloxacin and imipenem. 03/02/2025 patient with increased phlegm production and treated for bronchitis with Septra DS 2 tablets twice a day x 7 days. 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 Sputum on 12/15/2024 with AFB verified on 01/14/25 and grew SNEHA on 03/03/25. Sensitivities 03/20/25. On 03/20/25 patient referred to [facility] with appointment scheduled for 05/02/2025. Sputum on 12/16/2024 with AFB verified on 01/20/25 and grew SNEHA on 02/01/25.?Sensitivities 03/28/25. QuantiFERON gold was negative on 01/24/25. Patient was treated for bronchitis on 03/02/2025 and improved with Septra. He was at his baseline which is dyspnea on exertion at 50-75 feet. He is using 7 L at rest, with saturations 95-97% at home. He is using 7 L with activity with saturations 92%. He is using 7 L at night. He typically has no daily fevers. He coughs phlegm 2 times a day which is described as lynn. Patient tells me he was at his baseline on 04/24/2020 5. On 04/25/2025 he developed a fever, increased cough, worsening dyspnea on exertion with the same amount of phlegm. Family reported some confusion. He was brought to the emergency department. 04/25/25: In the emergency department his blood pressure is 102/61, heart rate 88, respirations 13 saturations 98% on 6 L nasal cannula. His white blood cell count was 15.3, his creatinine was 1.08, his BNP was 396. His nasal swab for MRSA was negative. His COVID, influenza, RSV RT PCR sick assay was negative. His ABG on 6 L 7.43/45/82. he was given Solu-Medrol 125, bronchodilators. Chest x-ray demonstrated bilateral interstitial infiltrates, loculated right pleural effusion with increased bibasilar infiltrates compared to 01/04/2025. I spoke with the emergency room physician and requested that he be transferred to [facility] said he could be evaluated by an Infectious Disease team which we do not have at [facility]. Patient was referred to [facility] but no beds were available. In the meantime I recommended ceftriaxone, azithromycin and Septra. 04/26/2025: The patient tells me he is breathing better at rest. He says that his cough and phlegm production are the same. His white blood cell count is 13.5, his creatinine is 1.04. His D-dimer is 1.94. His saturations on 5 L nasal cannula are 98%. I decreased him to 3 L nasal cannula saturations were 96%. He was in no respiratory distress. He had wheezes on exam. CT angiogram of the chest ordered. Later in the day patient had a CT angiogram of the chest: I have compared this to CT scans from 11/20/2024 and 08/29/2024 and 02/25/2024. Current CT shows no PE, worsening consolidation and infiltrates in the right lower lobe compared to 11/20/2024 and 02/25/2024. Compared to CT scan on 02/25/2024 currently there are some areas of improved consolidation in the right lower lobe and some different areas with worsening consolidations in the right lower lobe. There is unchanged consolidation in the posterior left lower lobe with no change compared to 11/20/2024, 08/29/2024 and that have improved from 02/25/2024. Currently there are patchy consolidations in the right middle lobe some which were present on 11/20/2024 and some that are new. There were no infiltrates on 08/29/2024 in the right middle lobe. 04/27/2025: The patient tells me he is doing much better. Says that he is breathing better and breathing better than he has in the last year. His cough is normal with minimal phlegm production today. There is no hemoptysis. Patient has been walking to the bathroom and says his dyspnea on exertion is better. Currently he is on 3 L nasal cannula saturations 93%. He is afebrile. White blood cell count 8.1, creatinine 1.36. He diuresed 15 mL yesterday and cumulative diuresis since admission is 750 mL. His weight today is 80.3. DATA 04/26/2025: EXAMINATION: CTA chest PE protocol DATE: 04/26/2025 13:46 CDT INDICATION: Shortness of breath TECHNIQUE: Computed tomographic angiography (CTA) of the chest was performed with 100 mL Omnipaque-350 intravenous contrast. The dose-length product was 256.22 mGy-cm. Maximum intensity projection 3D-reconstructions of the aorta and other arteries were constructed by the technologist on a separate workstation. Automated exposure control and iterative reconstruction technique were employed. COMPARISON: Chest x-ray dated 04/25/[address] dated 11/20/2024. FINDINGS: Small right pleural effusion. Trace left pleural effusion. There is mediastinal lymphadenopathy. There is right hilar lymphadenopathy. There is atherosclerosis of the aorta and coronary arteries. Small hiatal hernia. Heart size normal. Pulmonary arteries are enlarged, consistent with pulmonary hypertension. Study is technically adequate without evidence for pulmonary embolism. There is patchy bilateral airspace disease of the right upper, right middle and bilateral lower lobes, consistent with multifocal pneumonia. No endobronchial lesions. There is emphysema. No suspicious pulmonary nodules or masses. Mild thoracic spondylosis. No focal lytic or blastic lesions. IMPRESSION: 1. Multifocal airspace disease, consistent with pneumonia. 2: Bilateral pleural effusions, right greater than left. 3: Mediastinal lymphadenopathy, likely reactive. 4.: Pulmonary artery enlargement, consistent with pulmonary hypertension. 5: Emphysema. My read: I have compared this to CT scans from 11/20/2024 and 08/29/2024 and 02/25/2024. Current CT shows no PE, , Small right pleural effusion, worsening consolidation and infiltrates in the right lower lobe compared to 11/20/2024 and 02/25/2024. Compared to CT scan on 02/25/2024 currently there are some areas of improved consolidation in the right lower lobe and some different areas with worsening consolidations in the right lower lobe. There is unchanged consolidation in the posterior left lower lobe with no change compared to 11/20/2024, 08/29/2024 and that have improved from 02/25/2024. Currently there are patchy consolidations in the right middle lobe some which were present on 11/20/2024 and some that are new. There were no infiltrates on 08/29/2024 in the right middle lobe. 01/02/25:? Modified barium swallow:? Impression:? Moderate dysphagia 11/20/24: EXAMINATION:.? Recommendations: Regular but easy to chew diet with regular liquids but patient must use chin tuck posture with all eating and drinking to prevent pharyngeal residual and instances of laryngeal penetration and aspiration.? He was referral to outpatient speech therapy. 12/14/24:? CRP 3.6, ESR 134,? CPK 43, Aspergillus Niger IgE 0.31, very low level.? Aspergillus Niger antibody negative, Aspergillus flatus antibody negative.? Aspergillus fumigatus antibody negative.? Rheumatoid factor 12.9, anti CCP antibody less than 16.? TERRA screen positive with an anti-DNA antibody 27 (positive greater than 10), Anca screen negative, hypersensitivity pneumonitis panel negative.? 01/24/2025:? QuantiFERON gold negative.? IgE 691 normal less than 114, rheumatoid factor 12.9. IgG 693, IgM 90, IgA 212, all normal.? Aldolase 5.0 ?CTA chest PE protocol INDICATION: Hypoxia elevated d-dimer COMPARISON: 08/29/2024 and 10/11/2021. FINDINGS: No filling defects within the main or proximal pulmonary arteries. The thoracic aorta is unremarkable. No aneurysmal dilatation or dissection. The heart is of normal size, without pericardial effusion. Panlobular emphysematous disease is identified. Patchy groundglass opacification detected bilaterally. Small bilateral pleural effusions with adjacent compressive atelectasis Multiple subcentimeter areas of decreased attenuation within the liver, unchanged dating back to 10/11/2021. IMPRESSION: No pulmonary embolus. No aneurysmal dilatation or dissection within the thoracic aorta. Small bilateral pleural effusions with adjacent compressive atelectasis. 08/16/2024: Overnight oximetry on 3 L nasal cannula. The report in the computer status overnight oximetry on room air but this is mislabeled as the test was performed on 3 L. Recording duration 8 hours and 39 minutes. Basal saturation 92.1%. High saturation 96%. Low saturation 79%. Time with saturation less than or equal to 88% was 4 minutes and 58 seconds. I will continue oxygen 3 L at night. 06/24/2024: This is a 6 minute walk test. The test was performed and interpreted in accordance with the 2014 ERS/ATS task force guidelines. Of note, patient used to wheeled walker for stability and the testing was performed on his home portable oxygen concentrator at 3 L with pulse dose. Findings: The patient's resting 3 L oxygen saturation measured by pulse oximetry was 95% and heart rate was 80 bpm. Patient ambulated for 137 meters and oxygen saturation remained 91 to 92%. Heart rate at the end of the study was 94 bpm. The patient did not have rest or exertional hypoxemia on 3 L nasal cannula pulse dose with his portable oxygen concentrator. 02/25/24 - CTA chest (ER) - No PE identified. 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 There is patchy consolidation in the right middle and bilateral lower lobes with additional regions of tree-in-bud opacity scattered throughout both lungs consistent with multifocal pneumonia. There is associated bronchial wall thickening and mucous plugging in the bilateral lower lobes. Tiny left pleural effusion. No septal line thickening to suggest pulmonary edema. No pneumothorax. Mild cardiomegaly. Atherosclerotic coronary artery calcifications. No pericardial effusion. 02/25/2024: ABG on 4 L cannula 7.39/35/63 01/15/24 - Home O2 eval - Required 2L/min O2 with ambulation and none at rest. 12/16/23 - PFT The test was performed and results interpreted in accordance with the 2019 and 2005 ATS/ERS Task Force guidelines respectively using the Global Lung Function Initiative-2012 reference equations. Patient demonstrated good effort and cooperation. Reproducibility criteria were met. The quality of the pre bronchodilator spirometry maneuver was Grade A and post bronchodilator spirometry maneuver was Grade A. Findings: Spirometry:? There is decreased maximal expiratory airflow at all lung volumes with concave expiratory flow tracing.? The contour the inspiratory flow tracing is normal.? The pre bronchodilator FVC is 3.33 L, 82% predicted.? The pre bronchodilator FEV1 is 2.02 L, 68% predicted.? The pre bronchodilator FEV1: FVC ratio 61%.? The post bronchodilator FVC is 3.41 L, representing a 2% increase.? The post bronchodilator FEV1 is 2.09 L, representing a 3% increase.? The post bronchodilator FEV1:? FVC ratio 61%.? Plethysmography:? The total lung capacity is 6.43 L, 89% predicted.? The functional residual capacity is 4.14 L, 106% predicted.? The residual volume is 3.10 L, 115% predicted.? The residual volume:? Total lung capacity ratio is 48%.? Diffusing capacity:? The diffusing capacity unadjusted for hemoglobin and carboxyhemoglobin is 9.0, 37% predicted.? The diffusing capacity adjusted for alveolar volume is 2.29, 64% predicted. Comparison to previous pulmonary function testing on 01/01/2022 the post bronchodilator FVC has decreased from 4.38 L to 3.41 L.? The post bronchodilator FEV1 has decreased from 3.11 L to 2.09 L. the total lung capacity is decreased from 7.39 L to 6.43 L.? The functional residual capacity has decreased from 4.95 L to 4.14 L.? The residual volume is unchanged from 2.93 L to 3.10 L.? The diffusing capacity unadjusted for hemoglobin and carboxyhemoglobin is decreased from 14.9 to 9.0.? The diffusing capacity adjusted for alveolar volume decreased from 2.63 to 2.29 Impression: There is a mild obstructive abnormality. There is no significant improvement after inhaling a single dose of albuterol.? The increase in residual volume to total lung volume ratio is consistent with hyperinflation from an obstructive abnormality.? The diffusing capacity unadjusted for hemoglobin and carboxyhemoglobin is severely decreased and remains mildly decreased when adjusted for alveolar volume. Compared to prior pulmonary function testing on 01/01/2022 there has been a significant decrease in the FVC, FEV1, total lung capacity, functional residual capacity and diffusing capacity with no significant change in the residual volume. 09/16/23 - Home O2 eval - Required 2L/min O2 with ambulation and none at rest. 01/01/22 - Home O2 eval - Patient did not require supplemental oxygen at rest or with exertion. 01/01/22 - PFTs - Mild obstructive abnormality with normal FEV1 without significant improvement after inhaling a single dose of albuterol. Lung volumes normal. The diffusing capacity unadjusted for hemoglobin is moderately decreased and normalizes when adjusted for alveolar volume. 12/18/21 - Overnight oximetry on room air - Time with saturation less than or equal to 88% was 4.0 minutes. Patient does not qualify for supplemental oxygen at night. 10/10/2021 - ABG on 4L NC - 7.44/43/70. 10/20/21 - Chest XR - Persistent patchy bilateral airspace disease with possible improvement in the left lung, compatible with pneumonia. 10/11/2021 - CTA chest - Extensive bilateral pulmonary infiltrates and likely reactive hilar or mediastinal adenopathy. Small right pleural effusion. No evidence of pulmonary embolism. 10/11/2021 - Echo - LV systolic function mildly reduced, EF 45-50%. Grade I diastolic dysfunction. The inferior wall, inferoseptal wall, basal inferolateral wall, and mid inferolateral wall are hypokinetic. Mild LA enlargement. No pulmonary hypertension. Review of Systems Constitutional: Constitutional: Reports no additional constitutional complaints Eyes: Eyes: Reports no additional eye complaints ENT: Reports system reviewed and no additional complaints, except as documented Cardiovascular: Cardiovascular: Reports no additional cardiovascular complaints Respiratory: Respiratory: Reports no additional respiratory complaints Gastrointestinal: Gastrointestinal: Reports no additional gastrointestinal complaints Musculoskeletal: Musculoskeletal: Reports no additional musculoskeletal complaints Neurologic: Reports system reviewed and no additional complaints, except as documented Psychiatric: Psychiatric: Reports no additional psychiatric complaints Endocrine: Endocrine: Reports no additional endocrine complaints Hematologic/Lymphatic: Hematologic/Lymphatic: Reports no additional hematologic/lymphatic complaints Allergic/Immunologic: Allergic/Immunologic: Reports no additional allergic/immunologic complaints Exam Const: General: cooperative, healthy appearing and comfortable Orientation/consciousness: oriented to person, oriented to place and oriented to time HENMT: Head: normal to inspection Ears: hearing grossly normal bilaterally Eyes: General: appearance normal, both eyes and all related structures Neck: Neck: normal visual inspection Chest: Chest palpation & inspection: normal inspection of the chest Resp: Effort & Inspection: normal respiratory effort and able to speak in complete sentences Auscultation: crackles, no rales, no rhonchi, no wheezes and lung sounds not diminished Cardio: Jugular venous distension: no JVD GI: Inspection: normal to inspection Skin: General skin exam: normal color Neuro: General: oriented to person, oriented to place and oriented to time Extrem: General: normal to inspection and no edema Psych: Appearance: grossly normal Objective Data Vital Signs Vital Signs: Vital Signs - 24 hr 04/26/25 14:00 04/26/25 15:31 04/26/25 15:31 Temperature Pulse Rate 68 65 Respiratory Rate 20 Blood Pressure Pulse Oximetry 95 Oxygen Delivery Nasal Cannula Oxygen Flow Rate 3 04/26/25 15:39 04/26/25 15:55 04/26/25 16:00 Temperature 36.7 C Pulse Rate 68 64 Respiratory Rate 20 18 Blood Pressure 121/41 L Pulse Oximetry 91 91 Oxygen Delivery Nasal Cannula Oxygen Flow Rate 3 04/26/25 19:58 04/26/25 19:59 04/26/25 20:00 Temperature Pulse Rate 75 Respiratory Rate 20 Blood Pressure Pulse Oximetry 97 93 Oxygen Delivery Nasal Cannula Nasal Cannula Oxygen Flow Rate 3 3 04/26/25 20:00 04/26/25 20:07 04/26/25 20:23 Temperature 36.8 C Pulse Rate 78 83 76 Respiratory Rate 20 20 Blood Pressure 130/45 L Pulse Oximetry 94 Oxygen Delivery Oxygen Flow Rate 04/26/25 20:35 04/26/25 22:00 04/27/25 00:00 Temperature Pulse Rate 82 68 Respiratory Rate Blood Pressure Pulse Oximetry 93 Oxygen Delivery Nasal Cannula Oxygen Flow Rate 3 04/27/25 00:00 04/27/25 00:07 04/27/25 02:00 Temperature 36.4 C Pulse Rate 75 66 65 Respiratory Rate 20 Blood Pressure 130/47 L Pulse Oximetry 93 Oxygen Delivery Oxygen Flow Rate 04/27/25 02:31 04/27/25 02:43 04/27/25 04:00 Temperature Pulse Rate 73 80 Respiratory Rate 20 20 Blood Pressure Pulse Oximetry 93 Oxygen Delivery Nasal Cannula Oxygen Flow Rate 3 04/27/25 04:00 04/27/25 04:00 04/27/25 05:17 Temperature 36.8 C Pulse Rate 66 68 72 Respiratory Rate 20 20 Blood Pressure 133/56 L Pulse Oximetry 96 Oxygen Delivery Oxygen Flow Rate 04/27/25 05:27 04/27/25 06:00 04/27/25 07:46 Temperature 36.6 C Pulse Rate 69 67 68 Respiratory Rate 20 20 Blood Pressure 133/74 Pulse Oximetry 93 Oxygen Delivery Oxygen Flow Rate 04/27/25 08:40 04/27/25 08:40 04/27/25 11:45 Temperature 36.8 C Pulse Rate 70 70 69 Respiratory Rate 14 16 18 Blood Pressure 118/42 L Pulse Oximetry 93 98 Oxygen Delivery Nasal Cannula Oxygen Flow Rate 3 Intake/Output Intake/Output: Intake & Output 04/24/25 04/25/25 04/26/25 04/27/25 23:59 23:59 23:59 23:59 Intake Total 300 1860 480 Output Total 9432 1928 Balance 300 242 -790 Meds/Results Medications: Active Medications Generic Name Dose Route Start Last Admin Trade Name Freq PRN Reason Stop Dose Admin Acetaminophen 650 mg 04/26/25 01:49 04/26/25 03:35 Acetaminophen 325 Mg Tablet PO 650 mg Q6H PRN Administration Mild Pain (1-3) or Fever Albuterol 2.5 mg 04/26/25 01:51 Albuterol Sulfate Neb 2.5 Mg/3 Ml Inh INHALATION Q4HRT PRN shortness of breath or wheezing Albuterol/Ipratropium 3 ml 04/26/25 14:00 04/27/25 08:40 Ipratropium 0.5 Mg/Albuterol Sulfate 2.5 Mg Ampul.Neb 3 Ml INHALATION 3 ml Q6HRT GIOVANNY Administration Aspirin 81 mg 04/26/25 09:00 04/27/25 10:34 Aspirin 81 Mg Enteric Tablet PO 81 mg DAILY GIOVANNY Administration Atorvastatin Calcium 80 mg 04/26/25 09:00 04/27/25 10:34 Atorvastatin 40 Mg Tablet PO 80 mg DAILY GIOVANNY Administration Baclofen 10 mg 04/26/25 01:51 Baclofen 10 Mg Tablet PO Q12H PRN muscle spasm Bupropion HCl 150 mg 04/26/25 09:00 04/27/25 10:36 Bupropion Hcl Sr (12 Hr) 150 Mg Tab PO 150 mg Q12HR GIOVANNY Administration Docusate Sodium 100 mg 04/26/25 10:32 Docusate Sodium 100 Mg Capsule PO Q12H PRN Constipation Enoxaparin Sodium 40 mg 04/26/25 09:00 04/27/25 10:36 Enoxaparin 40 Mg/0.4 Ml Syringe SUB-Q 40 mg DAILY GIOVANNY Administration Fenofibrate 145 mg 04/26/25 09:00 04/27/25 10:34 Fenofibrate Nanocrystallized 145 Mg Tablet PO 145 mg QAM GIOVANNY Administration Furosemide 60 mg 04/26/25 09:00 04/26/25 08:54 Furosemide 20 Mg Tablet PO 60 mg DAILY GIOVANNY Administration Guaifenesin 1,200 mg 04/26/25 09:00 04/27/25 10:35 Guaifenesin 12 Hr 600 Mg Tabcr PO 1,200 mg Q12HR GIOVANNY Administration Hydroxyzine HCl 25 mg 04/26/25 01:51 04/27/25 00:00 Hydroxyzine Hcl 25 Mg Tablet PO 25 mg QID PRN Administration anxiety Azithromycin 500 mg in 250 mls @ 250 mls/hr 04/26/25 19:00 04/26/25 19:00 Zithromax IVPB Infused Q24H GIOVANNY Infusion Ceftriaxone Sodium 2 gm in 100 mls @ 200 mls/hr 04/26/25 18:00 04/26/25 18:06 Rocephin 2 Gm/Ns 100 Ml IVPB Infused Q24H GIOVANNY Infusion Linaclotide 290 mcg 04/26/25 06:30 04/27/25 05:46 Linaclotide 145 Mcg Capsule PO 290 mcg DAILY@0630 GIOVANNY Administration Loratadine 10 mg 04/26/25 01:59 Loratadine 10 Mg Tablet PO DAILY PRN allergies Lorazepam 0.5 mg 04/26/25 01:51 Lorazepam (*Crx) 0.5 Mg Tablet PO BID PRN anxiety Metoprolol Succinate 50 mg 04/26/25 02:00 04/26/25 20:35 Metoprolol Succinate Ext Rel 50 Mg Tabcr PO 50 mg HS GIOVANNY Administration Miscellaneous Information 1 each 04/26/25 00:01 04/26/25 02:58 Sulindac 200 Mg Tablet Is Noformulary, Can Patient Bring From Home? XX 05/26/25 00:00 Not Given CLARIFY GIOVANNY Morphine Sulfate 30 mg 04/26/25 06:00 04/27/25 05:47 Morphine Sulfate (*Crx) 30 Mg Tabcr PO 30 mg DAILY@0600 GIOVANNY Administration Multivitamins Therapeutic 1 tablet 04/26/25 09:00 04/27/25 10:36 Multivitamins Therapeutic Tab (*Bkc) PO 1 tablet DAILY GIOVANNY Administration Non-Formulary Medication 200 mg 04/26/25 09:00 Sulindac PO 05/26/25 08:59 BID GIOVANNY Pantoprazole Sodium 40 mg 04/26/25 09:00 04/27/25 10:35 Pantoprazole 40 Mg Tablet PO 40 mg QAM GIOVANNY Administration Polyethylene Glycol 17 gm 04/26/25 01:51 04/26/25 17:17 Polyethylene Glycol 3350 17 Gm Powd.Pack PO 17 gm QAM PRN Administration Constipation Sertraline HCl 50 mg 04/26/25 09:00 04/27/25 10:36 Sertraline Hcl 50 Mg Tablet PO 50 mg DAILY GIOVANNY Administration Sodium Chloride 6 ml 04/26/25 05:00 04/27/25 05:16 Sodium Chlor 3% 15 Ml Neb (Respiratory Therapy) INHALATION 04/28/25 05:01 6 ml DAILY@0500 GIOVANNY Administration Tamsulosin HCl 0.4 mg 04/26/25 09:00 04/26/25 20:36 Tamsulosin Hcl 0.4 Mg Capsule PO 0.4 mg Q12HR GIOVANNY Administration Tobramycin/Dexamethasone 1 drop 04/26/25 09:00 04/27/25 09:45 Tobramycin/Dexamethasone Op 2.5 Ml Btl EACH EYE 1 drop QID GIOVANNY Administration Trazodone HCl 100 mg 04/26/25 21:00 04/26/25 20:36 Trazodone Hcl 50 Mg Tablet PO 100 mg HS GIOVANNY Administration Trimethoprim/Sulfamethoxazole 2 tab 04/26/25 21:00 04/27/25 10:35 Sulfamethoxazole/Trimethoprim 800/160 Mg Ds Tablet PO 2 tab Q12HR GIOVANNY Administration Radiology Results: ITS Impressions Chest X-Ray 04/25/25 16:43 Impression: 1: Extensive bilateral airspace disease may represent edema and/or pneumonia. 2: Small right pleural effusion. Chest CTA 04/26/25 13:46 IMPRESSION: 1. Multifocal airspace disease, consistent with pneumonia. 2: Bilateral pleural effusions, right greater than left. 3: Mediastinal lymphadenopathy, likely reactive. 4.: Pulmonary artery enlargement, consistent with pulmonary hypertension. 5: Emphysema. Labs Labs: Laboratory Results - last 24 hr 04/26/25 04/27/25 04/27/25 04:25 03:59 04:01 WBC 8.1 RBC 2.98 L Hgb 8.8 L Hct 28.7 L MCV 96.3 MCH 29.5 MCHC 30.7 L RDW 14.6 H Plt Count 207 MPV 10.5 H Immature Gran % (Auto) 0.4 Neut % (Auto) 79.4 H Lymph % (Auto) 11.8 L [place] % (Auto) 8.1 Eos % (Auto) 0.2 Baso % (Auto) 0.1 L Lymph # (Auto) 0.95 [place] # (Auto) 0.7 H Eos # (Auto) 0.0 Baso # (Auto) 0.0 Abs Immat Gran (auto) 0.03 Absolute Neuts (auto) 6.4 Absolute Nucleated RBC 0.000 Nucleated RBC % 0.0 Sodium 138 Potassium 4.2 Chloride 101 Carbon Dioxide 32 H Anion Gap 5 BUN 27 H Creatinine 1.36 H Estim Creat Clear Calc 41 Estimated GFR 50 L Glucose 102 Calcium 9.2 Magnesium 1.9 Total Bilirubin 0.3 GGT 344 H AST 42 ALT 25 Alkaline Phosphatase 267 H NT-Pro-B Natriuret Pep 1060 H Total Protein 6.4 Albumin 3.3 L
[2025-04-27] MEDS: TAMSULOSIN HCL 0.4 MG CAPSULE PO ×2 (14:04→20:10)
--- NOTE | 2025-04-27 15:20 | BUSTOPEVAL1 ---
Assessment and note entered by Lorraine Knox [facility] Evaluation Information Assessment Status Evaluation Reported Pain Level Pain Score 0: Self Report Pain Score 0: Self Report Pain Score 0: Self Report Pain Score 0: Self Report Pain Score 0: Self Report Pain Score 0: Self Report Pain Score 0: Self Report Pain Score 0: Self Report Pain Score 0: Self Report Pain Score 3: Self Report Pain Score 0: Self Report Pain Score 0: FLACC Pain Score 0: Self Report Assessment ST Clinical Summary The patient was referred for a MBS study secondary to new onset pneumonia with patient reports of difficulty with solids at times sticking in his throat. The patient was viewed in a lateral position and presented the following consistencies tsp amounts thin barium 5 cc/via tsp, cup drink amounts thin barium, mildly thick liquid barium via cup, pudding mixed with barium paste, and cracker coated with barium paste. Oral Stage for all consistencies was completed within normal limits. When presented tsp/5cc amounts thin liquid barium pharyngeal symptoms included: trace residual coating in the vallecula secondary to reduced lingual pressure. Residual cleared following a repeat dry swallow. When presented cup drinks thin liquid barium pharyngeal symptoms included: Trace penetration during the swallow entering the airway above the vocal folds then ejected by the patient with independent cough reflex. Trace penetration viewed secondary to reduced laryngeal elevation. The patient was instructed to maintain a flexed chin posture with small controlled drinks without additional penetration viewed. Trace residue was noted in the vallecula due to reduced lingual pressure and the pyriform sinus due to reduced laryngeal movement and cricopharyngeal dysfunction. The patient cleared residual with cues to complete a repeat dry swallow. With presentation of mildly thick liquids via a cup pharyngeal symptoms included: Trace/coating residual viewed in the pyriform sinus following the swallow secondary to reduced anterior laryngeal movement and cricopharyngeal dysfunction. The patient cleared residual with completion of a repeat dry swallow. With trials pudding mixed with barium paste pharyngeal symptoms included : Swallow initiation occurred at the level of the vallecula without observed penetration or aspiration. Following the swallow trace residual was viewed in the vallecula secondary to reduced lingual pressure . Coating was noted on the pharyngeal wall and mild residual in the pyriform sinus secondary to reduced pharyngeal contraction, reduced anterior laryngeal movement and cricopharyngeal dysfunction. Again patient was cued to perform a repeat dry swallow with improved clearance of remaining residual in the vallecula and pyriform sinus. Finally with trials of cracker coated with barium paste the following pharyngeal symptoms were noted. Swallow initiation was delayed and viewed to fill the vallecula and begin to spill over into the pyriform sinus prior to initiating. Swallow initiation was completed without viewed penetration or aspiration. Following the swallow trace residual was observed in the vallecula secondary to reduced lingual pressure. Mild residual remained in the pyriform sinus secondary to reduced pharyngeal contraction, reduced anterior laryngeal movement and cricopharyngeal dysfunction. Again patient was cued to perform a repeat dry swallow with improved clearance of remaining residual in the vallecula and pyriform sinus. No deficits noted in the cervical- esophageal phase across consistencies. These treatments will address the objective and functional deficits as defined above. The patient will be advanced safely and appropriately in order for the patient to progress towards his/her prior level of function. Additional exercises will be introduced and as well as a comprehensive home exercise program upon discharge, if needed, ?to ensure carryover of functional gains achieved in the clinic. This treatment plan has been reviewed and agreement upon by the patient.
[2025-04-27] MEDS: cefTRIAXone 2 GM/NS 100 ML 2 GM/100 ML BAG IVPB (18:32)
[2025-04-27] MEDS: AZITHROMYCIN 500 MG/NS 250 ML 500 MG/250 ML BAG 250 MG IVPB (18:35)
[2025-04-27] MEDS: traZODone HCL 50 MG TABLET 100 MG PO (20:11)
[2025-04-27] MEDS: METOPROLOL SUCCINATE EXT REL 50 MG TABCR PO (20:11)
[2025-04-27] MEDS: LORazepam (*CRX) 0.5 MG TABLET PO (20:11)
[2025-04-27] MEDS: ACETAMINOPHEN 325 MG TABLET 650 MG PO (21:49)
[2025-04-28] VITALS (17 sets, daily range): BP systolic 122–136; BP diastolic 49–56; PULSE 56–92; RESP 18–20; TEMP 36.6–36.7; O2SAT 84–100
[2025-04-28] MEDS: IPRATROPIUM 0.5 MG/ALBUTEROL SULFATE 2.5 MG AMPUL.NEB 3 ML INHALATION ×2 (01:38→08:27)
[2025-04-28] MEDS: SODIUM CHLOR 3% 15 ML NEB (RESPIRATORY THERAPY) 6 ML INHALATION (04:35)
--- NOTE | 2025-04-28 04:42 | PCRCNOTE ---
Unable to produce sputum.
[2025-04-28 04:59] LABS: Basophils Percent Auto 0.3 % (0.2-1.2); Eosinophils Absolute Auto 0.2 K/mm3 (0-0.3); Eosinophils Percent Auto 3.8 % (0-4.4); Hematocrit 28.9 % (42.0-52.0); Hemoglobin 8.9 g/dL (14.0-18.0); Immature Granulocyte Absolute 0.03 K/mm3 (0.00-0.031); Immature Granulocyte Percent A 0.5 % (0-0.5); Lymphocytes Absolute Auto 1.13 K/mm3 (0.9-3.2); Lymphocytes Percent Auto 18.5 % (18.3-44.2); Mean Corpuscular HGB Conc 30.8 g/dl (32-36); Mean Corpuscular Hemoglobin 29.6 pg (26-34); Mean Platelet Volume 10.3 fl (7.4-10.4); Monocytes Absolute Auto 0.7 K/mm3 (0.1-0.6); Monocytes Percent Auto 10.6 % (2.6-8.5); Neutrophils Absolute Auto 4.1 K/mm3 (1.3-6.7); Neutrophils Percent Auto 66.3 % (45.5-73.1); Platelet Count Result 197 k/mm3 (150-375); Red Blood Count 3.01 M/mm3 (4.6-6.20); Red Cell Distribution Width 14.6 % (11.5-14.5); White Blood Count 6.1 K/mm3 (4.5-10.0)
[2025-04-28 05:32] LABS: Alanine Aminotransferase 24 U/L (6-50); Albumin Level 3.3 g/dL (3.5-5.1); Alkaline Phosphatase 233 U/L (38-126); Anion Gap 6 mmol/L (4-12); Aspartate Amino Transferase 37 U/L (17-59); Bilirubin,Total 0.2 mg/dL (0.2-1.3); Blood Urea Nitrogen 21 mg/dL (9-20); Calcium 9.3 mg/dL (8.4-10.2); Carbon Dioxide 31 mmol/L (22-30); Chloride 101 mmol/L (98-107); Estimated CRCL calculation 40 ml/min; Estimated Glomerular Filt Rate 49; Glucose 90 mg/dL (65-110); Magnesium 2.1 mg/dL (1.6-2.3); Sodium 138 mmol/L (137-145); Total Protein 6.4 g/dL (6.3-8.2)
[2025-04-28] MEDS: LINACLOTIDE 145 MCG CAPSULE 290 MCG PO (05:58)
[2025-04-28] MEDS: MORPHINE SULFATE (*CRX) 30 MG TABCR PO (05:58)
[2025-04-28] MEDS: ATORVASTATIN 40 MG TABLET 80 MG PO (08:26)
[2025-04-28] MEDS: guaiFENesin 12 HR 600 MG TABCR 1200 MG PO (08:26)
[2025-04-28] MEDS: SERTRALINE HCL 50 MG TABLET PO (08:26)
[2025-04-28] MEDS: TAMSULOSIN HCL 0.4 MG CAPSULE PO (08:26)
[2025-04-28] MEDS: FENOFIBRATE NANOCRYSTALLIZED 145 MG TABLET PO (08:26)
[2025-04-28] MEDS: buPROPion HCL SR (12 HR) 150 MG TAB PO (08:26)
[2025-04-28] MEDS: PANTOPRAZOLE 40 MG TABLET PO (08:26)
[2025-04-28] MEDS: MULTIVITAMINS THERAPEUTIC TAB (*BKC) 1 TABLET PO (08:26)
[2025-04-28] MEDS: ASPIRIN 81 MG ENTERIC TABLET PO (08:26)
[2025-04-28] MEDS: SULFAMETHOXAZOLE/TRIMETHOPRIM 800/160 MG DS TABLET 2 TAB PO (08:26)
[2025-04-28] MEDS: ENOXAPARIN 40 MG/0.4 ML SYRINGE SUB-Q (08:28)
[2025-04-28] MEDS: TOBRAMYCIN/DEXAMETHASONE OP 2.5 ML BTL 1 DROP EACH EYE (08:29)
--- NOTE | 2025-04-28 09:23 | PM.PNPUL ---
Progress Note: A&P Assessment and Plan (1) Chronic obstructive pulmonary disease: Code(s): J44.9 - Chronic obstructive pulmonary disease, unspecified Status: Acute Assessment and Plan: Gold grade 2 group E COPD Regarding his COPD, patient with 60 pack year tobacco use quit in 2019, alpha 1 anti trypsin genotype MM, [id number] apical predominant centrilobular and paraseptal emphysema on his CT scan from 10/11/2021. Of note he has had COVID pneumonia on 09/10/2021 and Pseudomonas pneumonia on 10/10/2021. His PFTs from 12/16/2023 show mild obstruction with FEV1 68%, ratio 61%. No bronchodilator response, hyperinflation, severely decreased DLCO the remains mildly decreased when adjusted for alveolar volume. Compared to 01/01/2022 had been a significant decrease in the FVC, FEV1, total lung capacity, functional residual capacity and diffusing capacity. When admitted for pneumonia had an ABG on 02/25/2024 on 3 L nasal cannula 7.44/36/67. 10/04/2024: ABG on 2 L 7.43/41/75. 10/04/2024: White blood cell count 11.1 eosinophils 3.2%=355/uL. 04/09/2024 white blood cell count 11.1, eosinophils 0.4%=44/uL. Tested positive for COVID 11/13/2023 treated with Paxlovid, rebound symptoms treated with clarithromycin and doxycycline. Hospitalize 02/25/2024 for pneumonia with sputum showing Haemophilus treated with steroids. Hospitalized 04/10/24 to 04/12/24 for COPD exacerbation treated with prednisone and azithromycin. 09/08/2024 cold symptoms, treated with doxycycline and prednisone taper. 10/04/2024 ED visit for shortness of breath treated for fluid overload and COPD exacerbation with prednisone and Augmentin. 11/04 admitted to [facility] with congestive heart failure and pneumonia no evidence of COPD exacerbation. 11/20 admitted to [facility] for shortness of breath, fluid overload and possible pneumonia. 12/02/2024 through 12/06/2024 admitted to [facility] treated for pneumonia. sputum from 12/17/2024 grew out Alcaligenes xylosoxidans sensitive to meropenem and Septra, intermediate to Zosyn, resistant to ceftaz, levofloxacin and imipenem. 03/02/2025 patient with increased phlegm production and treated for bronchitis with Septra DS 2 tablets twice a day x 7 days. 04/25/2025: patient presented to the hospital With fever, increased cough, increased phlegm production, leukocytosis, chest x-ray with worsening bibasilar infiltrates. 04/26/2025: The patient tells me he is breathing better at rest. He says that his cough and phlegm production are the same. His white blood cell count is 13.5, his creatinine is 1.04. His D-dimer is 1.94. His saturations on 5 L nasal cannula are 98%. I decreased him to 3 L nasal cannula saturations were 96%. He was in no respiratory distress. He had wheezes on exam. CT angiogram of the chest ordered. 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 the patient does have wheezing today. I would like to avoid inhaled oral steroids given his SNEHA history. I will discontinue his Anoro Ellipta in place him on DuoNebs q.6 hours. Goal saturation 90-94%. Will adjust oxygen accordingly. D-dimer is positive and I have been ordered CT angiogram of the chest. Her continue guaifenesin 1200 mg p.o. b.i.d.. Will order Cornet flutter valve. I have sent and extended respiratory pathogen panel, urine Legionella antigen, urine pneumococcal antigen, serum mycoplasma IgM Looking for alternative infectious etiologies. I have sent sputum for bacterial Gram stain and culture as well as AFB. 04/27/2025: The patient tells me he is doing much better. Says that he is breathing better and breathing better than he has in the last year. His cough is normal with minimal phlegm production today. There is no hemoptysis. Patient has been walking to the bathroom and says his dyspnea on exertion is better. Currently he is on 3 L nasal cannula saturations 93%. He is afebrile. White blood cell count 8.1, creatinine 1.36. He diuresed 15 mL yesterday and cumulative diuresis since admission is 750 mL. His weight today is 80.3. 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 No wheezing today and will continue DuoNebs q.6 hours. Guaifenesin 1200 mg p.o. q.day and Cornet flutter valve to help with expectoration. His creatinine has increased to 1.36 and I will hold his Lasix today. Extended respiratory pathogen panel, urine Legionella antigen, urine pneumococcal antigen, serum mycoplasma IgM, sputum for bacterial Gram stain and culture Shows Gram-positive cocci, Gram-negative coccobacilli Identification pending. Sputum for AFB all pending. 04/28/25: Patient tells me he has been breathing back to his baseline. His cough is unchanged. There is decreased phlegm production. His dyspnea on exertion is his baseline. He is afebrile. White blood cell count 6.1. Creatinine 1.38. Sputum has grown out normal [place]. From a pulmonary perspective patient is ready to be discharged on these pulmonary medications. Cefdinir 300 mg p.o. b.i.d. times 3 days azithromycin 250 mg p.o. q.day x2 days Septra DS 2 tablets p.o. b.i.d. x3 days. Bevespi 9-4.8 at 2 puffs b.i.d. Rescue albuterol inhaler 2 puffs q.4 hours p.r.n. shortness of breath or wheezing Rescue albuterol nebulizer 2.5 mg q.4 hours p.r.n. shortness of breath or wheezing Benzonatate 200 mg p.o. t.i.d. p.r.n. cough. Guaifenesin 1200 mg p.o. b.i.d. Zyrtec 10 mg p.o. q.day Oxygen at rest and with activity per formal home O2 assessment which I have ordered. Oxygen when he naps and sleeps at 4 L nasal cannula follow up with [facility] infectious Disease Clinic on 05/02/2025. I will fax them this note. Follow-up in the Pulmonary Clinic on 06/21/2025 at 1:45 a.m.. Discussed with Patient, daughter, Elenita Cardozo, will sign off, call with questions. (2) Acute on chronic respiratory failure with hypoxia: Code(s): J96.21 - Acute and chronic respiratory failure with hypoxia Status: Acute Assessment and Plan: Recently patient has been using 7 L nasal cannula at rest with saturations 95-97% at home. 7 L with activity with saturations 92% at home and he has been sleeping with 7 L. ABG in the emergency room on 6 L 7.43/45/82. There is no significant hypercarbic respiratory failure. 04/26/2025: On 5 L nasal cannula saturations were 93%. I decreased him to 3 L nasal cannula and his saturations were 96%. Plan: Goal saturation 90-94%, adjust oxygen accordingly. 04/27/25: Currently on 3 L nasal cannula with saturations 93%. Plan: Goal 90-94%, wean as tolerated. I will check an overnight oximetry tonight on 4 L nasal cannula. 04/28/25: Currently is on 2 L nasal cannula saturations 94%. Patient had an overnight oximetry on 4 L nasal cannula with recording duration of 7 hours and 38 minutes. Average saturation 97%. low saturation 87% Time with saturation less than or equal to 88% was 1 minute. oxygen desaturation index 0.8. Plan: I have ordered home O2 assessment. Patient should wear 4 L nasal cannula at night when he sleeps. 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 Sputum on 12/15/2024 with AFB verified on 01/14/25 and grew SNEHA on 03/03/25. Sensitivities 03/20/25. On 03/20/25 patient referred to [facility] with appointment scheduled for 05/02/2025. Sputum on 12/16/2024 with AFB verified on 01/20/25 and grew SNEHA on 02/01/25.?Sensitivities 03/28/25. QuantiFERON gold was negative on 01/24/25. ORGANISM: MYCOBACTERIUM AVIUM COMPLEX AMIKACIN: 16 S mcg/mL AMIKACIN (LIPOSOMAL, INHALED): 16 S mcg/mL CIPROFLOXACIN: >8 mcg/mL CLARITHROMYCIN: 2 S mcg/mL CLOFAZIMINE: 0.25 mcg/mL DOXYCYCLINE: >8 mcg/mL LINEZOLID: 16 I mcg/mL MINOCYCLINE: >8 mcg/mL MOXIFLOXACIN: 4 R mcg/mL RIFABUTIN: 1 mcg/mL RIFAMPIN: >4 mcg/mL STREPTOMYCIN: >32 * This is a corrected result. * A prior result that was reported as final has been changed. 1. Mycobacterium avium complex M.I.C. RX --------- --- Rifampin AFB >4 S Streptomycin AFB R Amikacin AFB 16 S Moxifloxacin AFB R 04/25/2025: Recommended patient be transferred to [facility] so he could be evaluated by Infectious Disease team to determine if he needs active treatment for his SNEHA and if so which medicines would be recommended. 04/26/25: patient is afebrile today. Patient feels improved with ceftriaxone cam a azithromycin and Septra. Plan: I will send repeat sputum for AFB. Recommend transfer to [facility] to be evaluated by Infectious Disease team. CT angiogram of the chest ordered. later in the day patient has CT angiogram of the chest. My read. I have compared this to CT scans from 11/20/2024 and 08/29/2024 and 02/25/2024. Current CT shows no PE, moderate apical predominant centrilobular emphysema, small loculated right pleural effusion increased from 11/20/2024, worsening consolidation and infiltrates in the right lower lobe compared to 11/20/2024 and 02/25/[address]24. [address] scan on 02/25/2024 currently there are some areas of improved consolidation in the right lower lobe and some new areas with worsening consolidations in the right lower lobe. There is unchanged consolidation in the posterior left lower lobe with no change compared to 11/20/2024, 08/29/2024 and that have improved from 02/25/2024. Currently there are patchy consolidations in the right middle lobe some which were present on 11/20/2024 and some that are new. There were no infiltrates on 08/29/2024 in the right middle lobe. 04/27/25: sputum for AFB x2 have made it to the lab. Results pending Patient with persistent as well as fleeting infiltrates from his CT scans from 02/25/2024, 08/29/2024, 11/20/2024 and 04/26/2025. I suspect this is related to his SNEHA. patient denies any aspiration events at home. I will check a modified barium swallow to ensure that there is no aspiration to account for these fleeting infiltrates. Plan: Recommend transfer to [facility] to be evaluated by Infectious Disease team. 04/28/25: Patient has improved and will discharge home with plan for follow-up at [facility] outpatient infectious disease clinic on 05/02/2025. I hand delivered the 3rd AFB sputum to the nurse this morning. Subjective Date/time seen: 04/28/25 09:23 Interval history: 04/26/2025: This is a new pulmonary consult for COPD and MAC. 80-year-old with a history of coronary artery disease status post non ST elevation [place] August of 2019, ischemic cardiomyopathy, hypertension, hyperlipidemia, Gold grade 2 group B COPD on home oxygen 7 L at rest, with activity and with sleep and MAC lung disease. Regarding his COPD, patient with 60 pack year tobacco use quit in 2019, alpha 1 anti trypsin genotype MM, [id number] apical predominant centrilobular and paraseptal emphysema on his CT scan from 10/11/2021. Of note he has had COVID pneumonia on 09/10/2021 and Pseudomonas pneumonia on 10/10/2021. His PFTs from 12/16/2023 show mild obstruction with FEV1 68%, ratio 61%. No bronchodilator response, hyperinflation, severely decreased DLCO the remains mildly decreased when adjusted for alveolar volume. Compared to 01/01/2022 had been a significant decrease in the FVC, FEV1, total lung capacity, functional residual capacity and diffusing capacity. When admitted for pneumonia had an ABG on 02/25/2024 on 3 L nasal cannula 7.44/36/67. 10/04/2024: ABG on 2 L 7.43/41/75. 10/04/2024: White blood cell count 11.1 eosinophils 3.2%=355/uL. 04/09/2024 white blood cell count 11.1, eosinophils 0.4%=44/uL. Tested positive for COVID 11/13/2023 treated with Paxlovid, rebound symptoms treated with clarithromycin and doxycycline. Hospitalize 02/25/2024 for pneumonia with sputum showing Haemophilus treated with steroids. Hospitalized 04/10/24 to 04/12/24 for COPD exacerbation treated with prednisone and azithromycin. 09/08/2024 cold symptoms, treated with doxycycline and prednisone taper. 10/04/2024 ED visit for shortness of breath treated for fluid overload and COPD exacerbation with prednisone and Augmentin. 11/04 admitted to [facility] with congestive heart failure and pneumonia no evidence of COPD exacerbation. 11/20 admitted to [facility] for shortness of breath, fluid overload and possible pneumonia. 12/02/2024 through 12/06/2024 admitted to [facility] treated for pneumonia. sputum from 12/17/2024 grew out Alcaligenes xylosoxidans sensitive to meropenem and Septra, intermediate to Zosyn, resistant to ceftaz, levofloxacin and imipenem. 03/02/2025 patient with increased phlegm production and treated for bronchitis with Septra DS 2 tablets twice a day x 7 days. 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 Sputum on 12/15/2024 with AFB verified on 01/14/25 and grew SNEHA on 03/03/25. Sensitivities 03/20/25. On 03/20/25 patient referred to [facility] with appointment scheduled for 05/02/2025. Sputum on 12/16/2024 with AFB verified on 01/20/25 and grew SNEHA on 02/01/25.?Sensitivities 03/28/25. QuantiFERON gold was negative on 01/24/25. Patient was treated for bronchitis on 03/02/2025 and improved with Septra. He was at his baseline which is dyspnea on exertion at 50-75 feet. He is using 7 L at rest, with saturations 95-97% at home. He is using 7 L with activity with saturations 92%. He is using 7 L at night. He typically has no daily fevers. He coughs phlegm 2 times a day which is described as lynn. Patient tells me he was at his baseline on 04/24/2020 5. On 04/25/2025 he developed a fever, increased cough, worsening dyspnea on exertion with the same amount of phlegm. Family reported some confusion. He was brought to the emergency department. 04/25/25: In the emergency department his blood pressure is 102/61, heart rate 88, respirations 13 saturations 98% on 6 L nasal cannula. His white blood cell count was 15.3, his creatinine was 1.08, his BNP was 396. His nasal swab for MRSA was negative. His COVID, influenza, RSV RT PCR sick assay was negative. His ABG on 6 L 7.43/45/82. he was given Solu-Medrol 125, bronchodilators. Chest x-ray demonstrated bilateral interstitial infiltrates, loculated right pleural effusion with increased bibasilar infiltrates compared to 01/04/2025. I spoke with the emergency room physician and requested that he be transferred to [facility] said he could be evaluated by an Infectious Disease team which we do not have at [facility]. Patient was referred to [facility] but no beds were available. In the meantime I recommended ceftriaxone, azithromycin and Septra. 04/26/2025: The patient tells me he is breathing better at rest. He says that his cough and phlegm production are the same. His white blood cell count is 13.5, his creatinine is 1.04. His D-dimer is 1.94. His saturations on 5 L nasal cannula are 98%. I decreased him to 3 L nasal cannula saturations were 96%. He was in no respiratory distress. He had wheezes on exam. CT angiogram of the chest ordered. Later in the day patient had a CT angiogram of the chest: I have compared this to CT scans from 11/20/2024 and 08/29/2024 and 02/25/2024. Current CT shows no PE, worsening consolidation and infiltrates in the right lower lobe compared to 11/20/2024 and 02/25/2024. Compared to CT scan on 02/25/2024 currently there are some areas of improved consolidation in the right lower lobe and some different areas with worsening consolidations in the right lower lobe. There is unchanged consolidation in the posterior left lower lobe with no change compared to 11/20/2024, 08/29/2024 and that have improved from 02/25/2024. Currently there are patchy consolidations in the right middle lobe some which were present on 11/20/2024 and some that are new. There were no infiltrates on 08/29/2024 in the right middle lobe. 04/27/2025: The patient tells me he is doing much better. Says that he is breathing better and breathing better than he has in the last year. His cough is normal with minimal phlegm production today. There is no hemoptysis. Patient has been walking to the bathroom and says his dyspnea on exertion is better. Currently he is on 3 L nasal cannula saturations 93%. He is afebrile. White blood cell count 8.1, creatinine 1.36. He diuresed 15 mL yesterday and cumulative diuresis since admission is 750 mL. His weight today is 80.3. 04/28/25: Patient tells me he has been breathing back to his baseline. His cough is unchanged. There is decreased phlegm production. His dyspnea on exertion is his baseline. He is afebrile. White blood cell count 6.1. Creatinine 1.38. Currently is on 2 L nasal cannula saturations 94%. Patient had an overnight oximetry on 4 L nasal cannula with recording duration of 7 hours and 38 minutes. Average saturation 97%. low saturation 87% Time with saturation less than or equal to 88% was 1 minute. oxygen desaturation index 0.8. Sputum has grown out normal [place]. DATA 04/26/2025: EXAMINATION: CTA chest PE protocol DATE: 04/26/2025 13:46 CDT INDICATION: Shortness of breath TECHNIQUE: Computed tomographic angiography (CTA) of the chest was performed with 100 mL Omnipaque-350 intravenous contrast. The dose-length product was 256.22 mGy-cm. Maximum intensity projection 3D-reconstructions of the aorta and other arteries were constructed by the technologist on a separate workstation. Automated exposure control and iterative reconstruction technique were employed. COMPARISON: Chest x-ray dated 04/25/[address] dated 11/20/2024. FINDINGS: Small right pleural effusion. Trace left pleural effusion. There is mediastinal lymphadenopathy. There is right hilar lymphadenopathy. There is atherosclerosis of the aorta and coronary arteries. Small hiatal hernia. Heart size normal. Pulmonary arteries are enlarged, consistent with pulmonary hypertension. Study is technically adequate without evidence for pulmonary embolism. There is patchy bilateral airspace disease of the right upper, right middle and bilateral lower lobes, consistent with multifocal pneumonia. No endobronchial lesions. There is emphysema. No suspicious pulmonary nodules or masses. Mild thoracic spondylosis. No focal lytic or blastic lesions. IMPRESSION: 1. Multifocal airspace disease, consistent with pneumonia. 2: Bilateral pleural effusions, right greater than left. 3: Mediastinal lymphadenopathy, likely reactive. 4.: Pulmonary artery enlargement, consistent with pulmonary hypertension. 5: Emphysema. My read: I have compared this to CT scans from 11/20/2024 and 08/29/2024 and 02/25/2024. Current CT shows no PE, , Small right pleural effusion, worsening consolidation and infiltrates in the right lower lobe compared to 11/20/2024 and 02/25/2024. Compared to CT scan on 02/25/2024 currently there are some areas of improved consolidation in the right lower lobe and some different areas with worsening consolidations in the right lower lobe. There is unchanged consolidation in the posterior left lower lobe with no change compared to 11/20/2024, 08/29/2024 and that have improved from 02/25/2024. Currently there are patchy consolidations in the right middle lobe some which were present on 11/20/2024 and some that are new. There were no infiltrates on 08/29/2024 in the right middle lobe. 01/02/25:? Modified barium swallow:? Impression:? Moderate dysphagia 11/20/24: EXAMINATION:.? Recommendations: Regular but easy to chew diet with regular liquids but patient must use chin tuck posture with all eating and drinking to prevent pharyngeal residual and instances of laryngeal penetration and aspiration.? He was referral to outpatient speech therapy. 12/14/24:? CRP 3.6, ESR 134,? CPK 43, Aspergillus Niger IgE 0.31, very low level.? Aspergillus Niger antibody negative, Aspergillus flatus antibody negative.? Aspergillus fumigatus antibody negative.? Rheumatoid factor 12.9, anti CCP antibody less than 16.? TERRA screen positive with an anti-DNA antibody 27 (positive greater than 10), Anca screen negative, hypersensitivity pneumonitis panel negative.? 01/24/2025:? QuantiFERON gold negative.? IgE 691 normal less than 114, rheumatoid factor 12.9. IgG 693, IgM 90, IgA 212, all normal.? Aldolase 5.0 ?CTA chest PE protocol INDICATION: Hypoxia elevated d-dimer COMPARISON: 08/29/2024 and 10/11/2021. FINDINGS: No filling defects within the main or proximal pulmonary arteries. The thoracic aorta is unremarkable. No aneurysmal dilatation or dissection. The heart is of normal size, without pericardial effusion. Panlobular emphysematous disease is identified. Patchy groundglass opacification detected bilaterally. Small bilateral pleural effusions with adjacent compressive atelectasis Multiple subcentimeter areas of decreased attenuation within the liver, unchanged dating back to 10/11/2021. IMPRESSION: No pulmonary embolus. No aneurysmal dilatation or dissection within the thoracic aorta. Small bilateral pleural effusions with adjacent compressive atelectasis. 08/16/2024: Overnight oximetry on 3 L nasal cannula. The report in the computer status overnight oximetry on room air but this is mislabeled as the test was performed on 3 L. Recording duration 8 hours and 39 minutes. Basal saturation 92.1%. High saturation 96%. Low saturation 79%. Time with saturation less than or equal to 88% was 4 minutes and 58 seconds. I will continue oxygen 3 L at night. 06/24/2024: This is a 6 minute walk test. The test was performed and interpreted in accordance with the 2014 ERS/ATS task force guidelines. Of note, patient used to wheeled walker for stability and the testing was performed on his home portable oxygen concentrator at 3 L with pulse dose. Findings: The patient's resting 3 L oxygen saturation measured by pulse oximetry was 95% and heart rate was 80 bpm. Patient ambulated for 137 meters and oxygen saturation remained 91 to 92%. Heart rate at the end of the study was 94 bpm. The patient did not have rest or exertional hypoxemia on 3 L nasal cannula pulse dose with his portable oxygen concentrator. 02/25/24 - CTA chest (ER) - No PE identified. 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 There is patchy consolidation in the right middle and bilateral lower lobes with additional regions of tree-in-bud opacity scattered throughout both lungs consistent with multifocal pneumonia. There is associated bronchial wall thickening and mucous plugging in the bilateral lower lobes. Tiny left pleural effusion. No septal line thickening to suggest pulmonary edema. No pneumothorax. Mild cardiomegaly. Atherosclerotic coronary artery calcifications. No pericardial effusion. 02/25/2024: ABG on 4 L cannula 7.39/35/63 01/15/24 - Home O2 eval - Required 2L/min O2 with ambulation and none at rest. 12/16/23 - PFT The test was performed and results interpreted in accordance with the 2019 and 2005 ATS/ERS Task Force guidelines respectively using the Global Lung Function Initiative-2012 reference equations. Patient demonstrated good effort and cooperation. Reproducibility criteria were met. The quality of the pre bronchodilator spirometry maneuver was Grade A and post bronchodilator spirometry maneuver was Grade A. Findings: Spirometry:? There is decreased maximal expiratory airflow at all lung volumes with concave expiratory flow tracing.? The contour the inspiratory flow tracing is normal.? The pre bronchodilator FVC is 3.33 L, 82% predicted.? The pre bronchodilator FEV1 is 2.02 L, 68% predicted.? The pre bronchodilator FEV1: FVC ratio 61%.? The post bronchodilator FVC is 3.41 L, representing a 2% increase.? The post bronchodilator FEV1 is 2.09 L, representing a 3% increase.? The post bronchodilator FEV1:? FVC ratio 61%.? Plethysmography:? The total lung capacity is 6.43 L, 89% predicted.? The functional residual capacity is 4.14 L, 106% predicted.? The residual volume is 3.10 L, 115% predicted.? The residual volume:? Total lung capacity ratio is 48%.? Diffusing capacity:? The diffusing capacity unadjusted for hemoglobin and carboxyhemoglobin is 9.0, 37% predicted.? The diffusing capacity adjusted for alveolar volume is 2.29, 64% predicted. Comparison to previous pulmonary function testing on 01/01/2022 the post bronchodilator FVC has decreased from 4.38 L to 3.41 L.? The post bronchodilator FEV1 has decreased from 3.11 L to 2.09 L. the total lung capacity is decreased from 7.39 L to 6.43 L.? The functional residual capacity has decreased from 4.95 L to 4.14 L.? The residual volume is unchanged from 2.93 L to 3.10 L.? The diffusing capacity unadjusted for hemoglobin and carboxyhemoglobin is decreased from 14.9 to 9.0.? The diffusing capacity adjusted for alveolar volume decreased from 2.63 to 2.29 Impression: There is a mild obstructive abnormality. There is no significant improvement after inhaling a single dose of albuterol.? The increase in residual volume to total lung volume ratio is consistent with hyperinflation from an obstructive abnormality.? The diffusing capacity unadjusted for hemoglobin and carboxyhemoglobin is severely decreased and remains mildly decreased when adjusted for alveolar volume. Compared to prior pulmonary function testing on 01/01/2022 there has been a significant decrease in the FVC, FEV1, total lung capacity, functional residual capacity and diffusing capacity with no significant change in the residual volume. 09/16/23 - Home O2 eval - Required 2L/min O2 with ambulation and none at rest. 01/01/22 - Home O2 eval - Patient did not require supplemental oxygen at rest or with exertion. 01/01/22 - PFTs - Mild obstructive abnormality with normal FEV1 without significant improvement after inhaling a single dose of albuterol. Lung volumes normal. The diffusing capacity unadjusted for hemoglobin is moderately decreased and normalizes when adjusted for alveolar volume. 12/18/21 - Overnight oximetry on room air - Time with saturation less than or equal to 88% was 4.0 minutes. Patient does not qualify for supplemental oxygen at night. 10/10/2021 - ABG on 4L NC - 7.44/43/70. 10/20/21 - Chest XR - Persistent patchy bilateral airspace disease with possible improvement in the left lung, compatible with pneumonia. 10/11/2021 - CTA chest - Extensive bilateral pulmonary infiltrates and likely reactive hilar or mediastinal adenopathy. Small right pleural effusion. No evidence of pulmonary embolism. 10/11/2021 - Echo - LV systolic function mildly reduced, EF 45-50%. Grade I diastolic dysfunction. The inferior wall, inferoseptal wall, basal inferolateral wall, and mid inferolateral wall are hypokinetic. Mild LA enlargement. No pulmonary hypertension. Review of Systems Constitutional: Constitutional: Reports no additional constitutional complaints Eyes: Eyes: Reports no additional eye complaints ENT: Reports system reviewed and no additional complaints, except as documented Cardiovascular: Cardiovascular: Reports no additional cardiovascular complaints Respiratory: Respiratory: Reports no additional respiratory complaints Gastrointestinal: Gastrointestinal: Reports no additional gastrointestinal complaints Musculoskeletal: Musculoskeletal: Reports no additional musculoskeletal complaints Neurologic: Reports system reviewed and no additional complaints, except as documented Psychiatric: Psychiatric: Reports no additional psychiatric complaints Endocrine: Endocrine: Reports no additional endocrine complaints Hematologic/Lymphatic: Hematologic/Lymphatic: Reports no additional hematologic/lymphatic complaints Allergic/Immunologic: Allergic/Immunologic: Reports no additional allergic/immunologic complaints Exam Const: General: cooperative, healthy appearing and comfortable Orientation/consciousness: oriented to person, oriented to place and oriented to time HENMT: Head: normal to inspection Ears: hearing grossly normal bilaterally Eyes: General: appearance normal, both eyes and all related structures Neck: Neck: normal visual inspection Chest: Chest palpation & inspection: normal inspection of the chest Resp: Effort & Inspection: normal respiratory effort and able to speak in complete sentences Auscultation: crackles, no rales, no rhonchi, no wheezes and lung sounds not diminished Other: improved crackles Cardio: Jugular venous distension: no JVD GI: Inspection: normal to inspection Skin: General skin exam: normal color Neuro: General: oriented to person, oriented to place and oriented to time Extrem: General: normal to inspection and no edema Psych: Appearance: grossly normal Objective Data Vital Signs Vital Signs: Vital Signs - 24 hr 04/27/25 10:00 04/27/25 11:45 04/27/25 12:00 Temperature 36.8 C Pulse Rate 73 69 69 Respiratory Rate 18 Blood Pressure 118/42 L Pulse Oximetry 98 Oxygen Delivery Oxygen Flow Rate Fraction of Inspired Oxygen 04/27/25 12:00 04/27/25 14:00 04/27/25 15:04 Temperature Pulse Rate 75 74 Respiratory Rate 22 H 16 Blood Pressure Pulse Oximetry 95 Oxygen Delivery Nasal Cannula Oxygen Flow Rate 3 Fraction of Inspired Oxygen 04/27/25 15:45 04/27/25 16:00 04/27/25 16:00 Temperature 36.4 C Pulse Rate 69 75 Respiratory Rate 18 Blood Pressure 114/43 L Pulse Oximetry 92 95 Oxygen Delivery Nasal Cannula Oxygen Flow Rate 3 Fraction of Inspired Oxygen 04/27/25 18:00 04/27/25 19:54 04/27/25 20:00 Temperature 36.5 C Pulse Rate 71 75 Respiratory Rate 22 H Blood Pressure 139/53 L Pulse Oximetry 95 94 Oxygen Delivery Nasal Cannula Oxygen Flow Rate 3 Fraction of Inspired Oxygen 04/27/25 20:00 04/27/25 20:11 04/27/25 20:50 Temperature Pulse Rate 74 73 74 Respiratory Rate 20 Blood Pressure Pulse Oximetry Oxygen Delivery Oxygen Flow Rate Fraction of Inspired Oxygen 04/27/25 20:54 04/27/25 22:45 04/27/25 23:46 Temperature 36.5 C Pulse Rate 74 66 82 Respiratory Rate 20 20 Blood Pressure 137/58 L Pulse Oximetry 94 92 Oxygen Delivery Nasal Cannula Oxygen Flow Rate 4 Fraction of Inspired Oxygen 36 04/28/25 00:00 04/28/25 00:00 04/28/25 02:00 Temperature Pulse Rate 64 64 57 L Respiratory Rate 20 Blood Pressure Pulse Oximetry 95 Oxygen Delivery Nasal Cannula Oxygen Flow Rate 3 Fraction of Inspired Oxygen 04/28/25 04:00 04/28/25 04:00 04/28/25 04:00 Temperature 36.6 C Pulse Rate 56 L 58 L Respiratory Rate 18 Blood Pressure 136/51 L Pulse Oximetry 95 100 Oxygen Delivery Nasal Cannula Oxygen Flow Rate 3 Fraction of Inspired Oxygen 04/28/25 06:13 04/28/25 08:00 04/28/25 08:11 Temperature 36.6 C Pulse Rate 66 71 Respiratory Rate 18 Blood Pressure 133/56 L Pulse Oximetry 95 94 Oxygen Delivery Nasal Cannula Oxygen Flow Rate 2 Fraction of Inspired Oxygen 04/28/25 08:27 Temperature Pulse Rate 71 Respiratory Rate 20 Blood Pressure Pulse Oximetry Oxygen Delivery Oxygen Flow Rate Fraction of Inspired Oxygen Intake/Output Intake/Output: Intake & Output 04/25/25 04/26/25 04/27/25 04/28/25 23:59 23:59 23:59 23:59 Intake Total 300 1860 1860 Output Total 0970 1378 1082 Balance 300 093 -302 -4798 Meds/Results Medications: Active Medications Generic Name Dose Route Start Last Admin Trade Name Freq PRN Reason Stop Dose Admin Acetaminophen 650 mg 04/26/25 01:49 04/27/25 21:49 Acetaminophen 325 Mg Tablet PO 650 mg Q6H PRN Administration Mild Pain (1-3) or Fever Albuterol 2.5 mg 04/26/25 01:51 Albuterol Sulfate Neb 2.5 Mg/3 Ml Inh INHALATION Q4HRT PRN shortness of breath or wheezing Albuterol/Ipratropium 3 ml 04/26/25 14:00 04/28/25 08:27 Ipratropium 0.5 Mg/Albuterol Sulfate 2.5 Mg Ampul.Neb 3 Ml INHALATION 3 ml Q6HRT GIOVANNY Administration Aspirin 81 mg 04/26/25 09:00 04/28/25 08:26 Aspirin 81 Mg Enteric Tablet PO 81 mg DAILY GIOVANNY Administration Atorvastatin Calcium 80 mg 04/26/25 09:00 04/28/25 08:26 Atorvastatin 40 Mg Tablet PO 80 mg DAILY GIOVANNY Administration Baclofen 10 mg 04/26/25 01:51 Baclofen 10 Mg Tablet PO Q12H PRN muscle spasm Bupropion HCl 150 mg 04/26/25 09:00 04/28/25 08:26 Bupropion Hcl Sr (12 Hr) 150 Mg Tab PO 150 mg Q12HR GIOVANNY Administration Docusate Sodium 100 mg 04/26/25 10:32 Docusate Sodium 100 Mg Capsule PO Q12H PRN Constipation Enoxaparin Sodium 40 mg 04/26/25 09:00 04/28/25 08:28 Enoxaparin 40 Mg/0.4 Ml Syringe SUB-Q 40 mg DAILY GIOVANNY Administration Fenofibrate 145 mg 04/26/25 09:00 04/28/25 08:26 Fenofibrate Nanocrystallized 145 Mg Tablet PO 145 mg QAM GIOVANNY Administration Furosemide 60 mg 04/26/25 09:00 04/26/25 08:54 Furosemide 20 Mg Tablet PO 60 mg DAILY GIOVANNY Administration Guaifenesin 1,200 mg 04/26/25 09:00 04/28/25 08:26 Guaifenesin 12 Hr 600 Mg Tabcr PO 1,200 mg Q12HR GIOVANNY Administration Hydroxyzine HCl 25 mg 04/26/25 01:51 04/27/25 00:00 Hydroxyzine Hcl 25 Mg Tablet PO 25 mg QID PRN Administration anxiety Azithromycin 500 mg in 250 mls @ 250 mls/hr 04/26/25 19:00 04/27/25 19:55 Zithromax IVPB Infused Q24H GIOVANNY Infusion Ceftriaxone Sodium 2 gm in 100 mls @ 200 mls/hr 04/26/25 18:00 04/27/25 19:00 Rocephin 2 Gm/Ns 100 Ml IVPB Infused Q24H IGOVANNY Infusion Linaclotide 290 mcg 04/26/25 06:30 04/28/25 05:58 Linaclotide 145 Mcg Capsule PO 290 mcg DAILY@0630 GIOVANNY Administration Loratadine 10 mg 04/26/25 01:59 Loratadine 10 Mg Tablet PO DAILY PRN allergies Lorazepam 0.5 mg 04/26/25 01:51 04/27/25 20:11 Lorazepam (*Crx) 0.5 Mg Tablet PO 0.5 mg BID PRN Administration anxiety Metoprolol Succinate 50 mg 04/26/25 02:00 04/27/25 20:11 Metoprolol Succinate Ext Rel 50 Mg Tabcr PO 50 mg HS GIOVANNY Administration Miscellaneous Information 1 each 04/26/25 00:01 04/26/25 02:58 Sulindac 200 Mg Tablet Is Noformulary, Can Patient Bring From Home? XX 05/26/25 00:00 Not Given CLARIFY GIOVANNY Morphine Sulfate 30 mg 04/26/25 06:00 04/28/25 05:58 Morphine Sulfate (*Crx) 30 Mg Tabcr PO 30 mg DAILY@0600 GIOVANNY Administration Multivitamins Therapeutic 1 tablet 04/26/25 09:00 04/28/25 08:26 Multivitamins Therapeutic Tab (*Bkc) PO 1 tablet DAILY GIOVANNY Administration Non-Formulary Medication 200 mg 04/26/25 09:00 Sulindac PO 05/26/25 08:59 BID GIOVANNY Pantoprazole Sodium 40 mg 04/26/25 09:00 04/28/25 08:26 Pantoprazole 40 Mg Tablet PO 40 mg QAM GIOVANNY Administration Polyethylene Glycol 17 gm 04/26/25 01:51 04/26/25 17:17 Polyethylene Glycol 3350 17 Gm Powd.Pack PO 17 gm QAM PRN Administration Constipation Sertraline HCl 50 mg 04/26/25 09:00 04/28/25 08:26 Sertraline Hcl 50 Mg Tablet PO 50 mg DAILY GIOVANNY Administration Tamsulosin HCl 0.4 mg 04/26/25 09:00 04/28/25 08:26 Tamsulosin Hcl 0.4 Mg Capsule PO 0.4 mg Q12HR GIOVANNY Administration Tobramycin/Dexamethasone 1 drop 04/26/25 09:00 04/28/25 08:29 Tobramycin/Dexamethasone Op 2.5 Ml Btl EACH EYE 1 drop QID GIOVANNY Administration Trazodone HCl 100 mg 04/26/25 21:00 04/27/25 20:11 Trazodone Hcl 50 Mg Tablet PO 100 mg HS GIOVANNY Administration Trimethoprim/Sulfamethoxazole 2 tab 04/26/25 21:00 04/28/25 08:26 Sulfamethoxazole/Trimethoprim 800/160 Mg Ds Tablet PO 2 tab Q12HR GIOVANNY Administration Radiology Results: ITS Impressions Chest X-Ray 04/25/25 16:43 Impression: 1: Extensive bilateral airspace disease may represent edema and/or pneumonia. 2: Small right pleural effusion. Chest CTA 04/26/25 13:46 IMPRESSION: 1. Multifocal airspace disease, consistent with pneumonia. 2: Bilateral pleural effusions, right greater than left. 3: Mediastinal lymphadenopathy, likely reactive. 4.: Pulmonary artery enlargement, consistent with pulmonary hypertension. 5: Emphysema. Modified Barium Swallow 04/27/25 13:27 IMPRESSION: Pharyngeal dysphagia with laryngeal penetration without aspiration with uncontrolled thin liquids. Please correlate with speech pathologist findings and specific feeding recommendations. Labs Labs: Laboratory Results - last 24 hr 04/28/25 04:39 WBC 6.1 RBC 3.01 L Hgb 8.9 L Hct 28.9 L MCV 96.0 MCH 29.6 MCHC 30.8 L RDW 14.6 H Plt Count 197 MPV 10.3 Immature Gran % (Auto) 0.5 Neut % (Auto) 66.3 Lymph % (Auto) 18.5 [place] % (Auto) 10.6 H Eos % (Auto) 3.8 Baso % (Auto) 0.3 Lymph # (Auto) 1.13 [place] # (Auto) 0.7 H Eos # (Auto) 0.2 Baso # (Auto) 0.0 Abs Immat Gran (auto) 0.03 Absolute Neuts (auto) 4.1 Absolute Nucleated RBC 0.000 Nucleated RBC % 0.0 Sodium 138 Potassium 5.0 Chloride 101 Carbon Dioxide 31 H Anion Gap 6 BUN 21 H Creatinine 1.38 H Estim Creat Clear Calc 40 Estimated GFR 49 L Glucose 90 Calcium 9.3 Magnesium 2.1 Total Bilirubin 0.2 AST 37 ALT 24 Alkaline Phosphatase 233 H Total Protein 6.4 Albumin 3.3 L
--- NOTE | 2025-04-28 09:53 | P.DS_ITS ---
DS: Admitting Diagnosis Discharge Date 04/28/2025 Admitting Diagnosis Shortness of breath DS: Discharge Diagnosis Discharge Diagnosis (1) Acute kidney injury superimposed on chronic kidney disease: Code(s): N17.9 - Acute kidney failure, unspecified; N18.9 - Chronic kidney disease, unspecified Status: Acute (2) CHF (congestive heart failure), NYHA class I: Qualifiers: Congestive heart failure chronicity: chronic Congestive heart failure t ype: diastolic Qualified Code(s): I50.32 - Chronic diastolic (congestive) heart failure Code(s): I50.9 - Heart failure, unspecified Status: Chronic (3) Pneumonia: Code(s): J18.9 - Pneumonia, unspecified organism Status: Acute (4) Acute on chronic respiratory failure with hypoxia: Code(s): J96.21 - Acute and chronic respiratory failure with hypoxia Status: Acute (5) SNEHA (mycobacterium avium-intracellulare): Code(s): A31.0 - Pulmonary mycobacterial infection Status: Acute (6) Chronic obstructive pulmonary disease: Code(s): J44.9 - Chronic obstructive pulmonary disease, unspecified Status: Acute (7) HTN (hypertension): Qualifiers: Hypertension type: primary hypertension Qualified Code(s): I10 - Essential (primary) hypertension Code(s): I10 - Essential (primary) hypertension Status: Chronic DS: Summary Hospital Course Hospital Course: In the ED: He was afebrile on arrival with stable blood pressures an SpO2 of 96% on a non-rebreather. Labs are significant for WBC count of 15.3 with 2% bands, hemoglobin 9.8, BUN 27, glucose 134, alkaline phosphatase 410, proBNP 396. Influenza, RSV, and COVID negative. Chest x-ray showed extensive bilateral airspace disease which may represent edema and/or pneumonia and small right pleural effusion. Transfer was initiated to [facility] for infectious disease consult however they are currently fallen do not expect the bed to be available for days and he is being admitted here for treatment pending transfer. Dr. Gottlieb recommends starting the patient on azithromycin, ceftriaxone, and sulfamethoxazole-trimethoprim in the interim. Chest CTA 04/26/25 13:46 IMPRESSION: 1. Multifocal airspace disease, consistent with pneumonia. 2: Bilateral pleural effusions, right greater than left. 3: Mediastinal lymphadenopathy, likely reactive. 4: Pulmonary artery enlargement, consistent with pulmonary hypertension. 5: Emphysema. 04/27/25 Modified Barium Swallow FINDINGS: Oral stage: Adequate function. Pharyngeal stage: There is laryngeal elevation and adduction. Reduced tongue base retraction and pharyngeal squeeze. There is trace vallecular and piriform sinus residue. There pharyngeal wall residue. There is laryngeal penetration without aspiration with uncontrolled thin liquids from a cup. There is cricopharyngeal dysfunction. Cervical/esophageal stage: Adequate function. IMPRESSION: Pharyngeal dysphagia with laryngeal penetration without aspiration with uncontrolled thin liquids. Please correlate with speech pathologist findings and specific feeding recommendations. Patient to use chin tuck when swallowing. Pulmonology followed during visit. Patient was using 7 liters of oxygen when he came in. Oxygen weaned down. Patient had apnea study and home . Patient had an overnight oximetry on 4 L nasal cannula with recording duration of 7 hours and 38 minutes. Average saturation 97%. low saturation 87% Time with saturation less than or equal to 88% was 1 minute. oxygen desaturation index 0.8. Sputum has grown out normal [place].New oxygen settings: * Wear oxygen at 4 liters nasal cannula at night, 2 liters at rest, and 5 liters with activity. * Patient treated with antibiotics for pneumonia. * Urine pneumococcal antigen not detected. * Patient has an appointment with [facility] infectious Disease Clinic on 05/02/2025. * Follow-up in the Pulmonary Clinic on 06/21/2025 at 1:45 p.m. Status at Discharge Functional status at discharge: uses cane/walker Overall status at discharge: patient is progressing back to baseline Time Spent with Patient Time attestation: Total time spent providing and/or coordinating discharge services: Time spent: Greater than 30 minutes Exam Const: General: comfortable and no acute distress Resp: Effort & Inspection: normal respiratory effort Auscultation: crackles Cardio: Rate: regular rate Rhythm: regular rhythm Other: Telemetry-SR 66 GI: GI Palp: Yes Soft to palpation Auscultation: normal bowel sounds Extrem: General: no pedal edema Psych: Mental Status: mental status grossly normal Affect: normal affect DS: Data Data Completed and Pending Labs on day of discharge: Labs from last 24 hours 04/28/25 04:39 WBC 6.1 RBC 3.01 L Hgb 8.9 L Hct 28.9 L MCV 96.0 MCH 29.6 MCHC 30.8 L RDW 14.6 H Plt Count 197 MPV 10.3 Immature Gran % (Auto) 0.5 Neut % (Auto) 66.3 Lymph % (Auto) 18.5 [place] % (Auto) 10.6 H Eos % (Auto) 3.8 Baso % (Auto) 0.3 Lymph # (Auto) 1.13 [place] # (Auto) 0.7 H Eos # (Auto) 0.2 Baso # (Auto) 0.0 Abs Immat Gran (auto) 0.03 Absolute Neuts (auto) 4.1 Absolute Nucleated RBC 0.000 Nucleated RBC % 0.0 Sodium 138 Potassium 5.0 Chloride 101 Carbon Dioxide 31 H Anion Gap 6 BUN 21 H Creatinine 1.38 H Estim Creat Clear Calc 40 Estimated GFR 49 L Glucose 90 Calcium 9.3 Magnesium 2.1 Total Bilirubin 0.2 AST 37 ALT 24 Alkaline Phosphatase 233 H Total Protein 6.4 Albumin 3.3 L Preliminary micro results at discharge 04/26/25 09:22 Sputum Culture - Preliminary Sputum 04/26/25 05:26 Sputum Culture - Preliminary Sputum 04/25/25 17:08 Blood Culture - Preliminary Blood 04/25/25 17:09 Blood Culture - Preliminary Blood Discharge Plan Discharge Attending physician on discharge: Kenan Flores Consulting providers: Salas Gottlieb Discharging Clinician: Elenita Cardozo Anticipated Discharge Date/Time: 04/28/25 11:54 Patient Disposition: Home Activity: may shower and as tolerated Diet: heart healthy Discharge Instructions: * Use chin tuck method when swallowing taught to you by speech therapy. * Take all doses of antibiotics. * Go to [facility] Infectious Disease appointment on 05/02. * Creatinine slightly elevated at 1.38. Have BMP checked on Tuesday 05/01. Decrease Furosemide 20 mg PO daily until you see Dr. Orellana and discuss Furosemide dose. * Weight yourself daily. If you gain 1 pound daily for 3 days or 3 pounds in one day notify provider. * Report any worsening shortness of breath, temp >101, or increased swelling to provider. * Use cornet valve as directed by respiratory. * Wear oxygen at 4 liters nasal cannula at night, 2 liters at rest, and 5 liters with activity. Thank you for entrusting [facility] with your healthcare! Patient Instructions: Antibiotic Form, Enoxaparin (By injection), Heart Failure (DC), Using Oxygen at Home (DC), COPD (Chronic Obstructive Pulmonary Disease) (DC), Pneumonia (DC) Patient Language: Faroese Stand Alone Forms: General Discharge Information Follow-up/Referrals: Salas Gottlieb MD [Physician] - 06/21/25 Naveed Mcintosh MD [Primary Care Provider] - 1 Week Discharge Medications: New sulfamethoxazole-trimethoprim 800-160 mg Tablet 2 tablet PO Q12HR Qty: 12 0RF Bevespi Aerosphere 9-4.8 mcg HFA aerosol inhaler 2 puff inhalation BID Qty: 10.7 0RF azithromycin 250 mg tablet 250 mg PO DAILY Qty: 2 0RF cefdinir 300 mg capsule 300 mg PO Q12H Qty: 6 0RF furosemide 20 mg tablet 20 mg PO DAILY Qty: 10 0RF Continued acetaminophen [Tylenol Extra Strength] 500 mg tablet 1,000 mg PO Q6H PRN (Reason: Pain) multivitamin Tablet 1 tablet PO DAILY (DME) nebulizer and compressor Device See Rx Instructions .Route Qty: 1 0RF Rx Instructions: As directed (DME) nebulizer accessories Kit See Rx Instructions .Route Qty: 1 0RF Rx Instructions: As directed baclofen 10 mg tablet 10 mg PO Q12H PRN (Reason: muscle spasm) Zyrtec 10 mg Capsule 10 mg PO DAILY PRN (Reason: allergies) polyethylene glycol 3350 [Miralax] 17 gram Powder In Packet 17 g PO QAM PRN (Reason: Constipation) Qty: 30 0RF aspirin 81 mg Tablet,Delayed Release (Dr/Ec) 81 mg PO DAILY Qty: 90 0RF simethicone [Gas-X Extra Strength] 125 mg Capsule 125 mg PO PRN fenofibrate 160 mg tablet 160 mg PO DAILY Qty: 90 2RF Linzess 290 mcg capsule See Rx Instructions .ROUTE .COMPLEX Qty: 90 3RF Dose Instruction: TAKE 1 CAPSULE BY MOUTH DAILY Rx Instructions: TAKE 1 CAPSULE BY MOUTH DAILY esomeprazole magnesium 20 mg capsule,delayed release(DR/EC) See Rx Instructions .ROUTE .COMPLEX Qty: 90 3RF Dose Instruction: TAKE 1 CAPSULE BY MOUTH DAILY Rx Instructions: TAKE 1 CAPSULE BY MOUTH DAILY albuterol sulfate 90 mcg/actuation HFA aerosol inhaler 2 puff INHALATION Q4H PRN (Reason: Shortness Of Breath Or Wheezing) Qty: 8.5 5RF nitroglycerin 0.4 mg tablet, sublingual 0.4 mg sublingual Q5M PRN (Reason: chest pain) Qty: 25 3RF Rx Instructions: do not exceed 3 doses per episode albuterol sulfate 2.5 mg /3 mL (0.083 %) solution for nebulization 2.5 mg inhalation Q4H PRN (Reason: shortness of breath or wheezing) Qty: 90 3RF bupropion HCl 150 mg tablet sustained-release 12 hr 150 mg PO BID Qty: 180 2RF metoprolol succinate 50 mg tablet extended release 24 hr 50 mg PO HS Qty: 90 1RF hydroxyzine HCl 25 mg tablet 25 mg PO QID PRN (Reason: anxiety) Qty: 50 2RF trazodone 100 mg tablet 100 mg PO HS Qty: 90 1RF tamsulosin 0.4 mg capsule 0.4 mg PO BID Qty: 180 3RF lorazepam 0.5 mg tablet 0.5 mg PO BID PRN (Reason: anxiety) Qty: 60 3RF tobramycin-dexamethasone 0.3-0.1 % drops,suspension 1 drp EACH EYE QID Qty: 10 0RF sulindac 200 mg tablet 200 mg PO BID Qty: 180 1RF morphine 30 mg tablet extended release 30 mg PO QAM Qty: 30 0RF atorvastatin 80 mg tablet 80 mg PO DAILY Qty: 90 1RF guaifenesin 600 mg tablet extended release 12hr 1,200 mg PO BID Qty: 120 3RF sertraline 50 mg tablet 50 mg PO DAILY Qty: 90 3RF benzonatate 200 mg capsule See Rx Instructions .ROUTE .COMPLEX Qty: 90 0RF Dose Instruction: TAKE 1 CAPSULE BY MOUTH THREE TIMES DAILY NEEDED FOR COUGH Rx Instructions: TAKE 1 CAPSULE BY MOUTH THREE TIMES DAILY NEEDED FOR COUGH Discontinued Bevespi Aerosphere 9-4.8 mcg HFA aerosol inhaler See Rx Instructions .ROUTE .COMPLEX Rx Instructions: INHALE 2 PUFFS BY MOUTH DAILY Saccharomyces boulardii [Florastor] 250 mg Capsule 250 mg PO TID Qty: 30 0RF losartan 50 mg tablet 50 mg PO DAILY Qty: 90 3RF furosemide 40 mg tablet 60 mg PO DAILY Qty: 135 1RF sulfamethoxazole-trimethoprim 800-160 mg tablet 2 tablet PO Q12H Qty: 28 0RF Other Ambulatory Orders: Basic Metabolic Panel (Routine) Timeframe: [id number] Location: Determined by Patient Ordered By: Elenita Cardozo Date of admission: 04/27/25 09:27 Primary Care Provider: Naveed Mcintosh Admitting Provider: Luiz Tejeda Attending physician on admission: Luiz Tejeda Condition: Improved Hospitalist MIPS Heart Failure (Exclusion) Patient has history of Heart Transplant or Left Ventricular Assistive Device?: No IF YES, STOP HERE Heart Failure (Qualifier) Patient has current or prior documentation of LVEF less than or equal to 40%, or mod/servere depressed LVSF?: No IF NO, STOP HERE
--- NOTE | 2025-04-28 11:20 | HOMEO2EVAL ---
Evaluation was performed at [facility] Home Oxygen Evaluation RC: Home Oxygen (O2) Evaluation Start: 04/28/25 09:11 Freq: ONCE Status: Active Protocol: RPE Activity Type Activity Date Activity User E-sign Co-sign Detail Recorded Client Recorded Date Recorded By Document 04/28/25 10:00 DJO [email or web address] 04/28/25 11:19 DJO Document 04/28/25 10:05 DJO [email or web address] 04/28/25 11:19 DJO Document 04/28/25 10:10 DJO [email or web address] 04/28/25 11:19 DJO Document 04/28/25 10:15 DJO [email or web address] 04/28/25 11:19 DJO Document 04/28/25 10:20 DJO [email or web address] 04/28/25 11:19 DJO Document 04/28/25 10:25 DJO [email or web address] 04/28/25 11:19 DJO Document 04/28/25 10:30 DJO [email or web address] 04/28/25 11:19 DJO Document 04/28/25 10:45 [email or web address] [email or web address] 04/28/25 11:19 DJO 04/28/25 04/28/25 04/28/25 10:00 10:05 10:10 Home O2 Evaluation [Oxygen] -Test Phase Resting Resting Exercise -Oxygen Delivery Room Air Nasal Cannula Nasal Cannula -Oxygen Flow Rate (L/min) 1 2 [Pulse Oximetry] -Pulse Oximetry (90-100 %) 86 L 88 L 91 [Pulse Rate] -Pulse Rate (60-100 beats/min) 74 72 68 [Evaluation] -Activity Tolerance [Charges] -Evaluation Charges O2 Evaluation by Pulmonary 04/28/25 04/28/25 04/28/25 10:15 10:20 10:25 Home O2 Evaluation [Oxygen] -Test Phase Exercise Exercise Exercise -Oxygen Delivery Nasal Cannula Nasal Cannula Nasal Cannula -Oxygen Flow Rate (L/min) 2 3 4 [Pulse Oximetry] -Pulse Oximetry (90-100 %) 84 L 86 L 88 L [Pulse Rate] -Pulse Rate (60-100 beats/min) 82 87 91 [Evaluation] -Activity Tolerance [Charges] -Evaluation Charges 04/28/25 04/28/25 10:30 10:45 Home O2 Evaluation [Oxygen] -Test Phase Exercise Resting -Oxygen Delivery Nasal Cannula Nasal Cannula -Oxygen Flow Rate (L/min) 5 2 [Pulse Oximetry] -Pulse Oximetry (90-100 %) 90 92 [Pulse Rate] -Pulse Rate (60-100 beats/min) 92 70 [Evaluation] -Activity Tolerance Poor [Charges] -Evaluation Charges
--- NOTE | 2025-04-28 11:20 | PCRCNOTE ---
HOME O2 EVAL COMPLETE, 2L REST, 5L ACTIVITY AND 4L NOCTURNAL. PT HAS HOME O2 WITH [facility] AND HIS FAMILY WILL BRING IN TANK FOR DISCHAGE.
[2025-04-28 17:38] LABS: Mycoplasma IgM Antibody Titer. 83 U/mL
[2025-04-29 18:39] LABS: Legionella pneumophila Ag Ur. NOT DETECTED
[2025-05-01 18:18] LABS: Adenovirus DNA Not Detected (Not Detected); Chlamydophila pneumoniae Not Detected (Not Detected); Coronavirus 229E Not Detected (Not Detected); Coronavirus HKU1 Not Detected (Not Detected); Coronavirus NL63 Not Detected (Not Detected); Coronavirus OC43 Not Detected (Not Detected); Human Metapneumovirus Detected (Not Detected); Human Parainfluenza Virus 1 Not Detected (Not Detected); Human Parainfluenza Virus 2 Not Detected (Not Detected); Human Parainfluenza Virus 3 Not Detected (Not Detected); Human Parainfluenza Virus 4 Not Detected (Not Detected); Human RSV B Not Detected (Not Detected); Influenza A Not Detected (Not Detected); Influenza B Not Detected (Not Detected); Mycoplasma pneumoniae Not Detected (Not Detected); Rhinovirus/Enterovirus Not Detected (Not Detected)
== END 2025-04-28 14:25 | disposition home or self-care (01) | DRG 194 ==
LOC: ANHED 17:10 → ANHIMU 19:53
PROVIDERS: Internal Medicine Pulmonary Disease; Physician Assistant; Admitting Provider Internal Medicine; Emergency Provider Emergency Medicine; PCP Family Medicine Adolescent Medicine; Visit Provider Nurse Practitioner Family
DX: J18.9 Pneumonia, unspecified organism (principal); I13.0 Hypertensive heart and chronic kidney disease with heart failure and stage 1 through stage 4 chronic kidney disease, or unspecified chronic kidney disease; I50.32 Chronic diastolic (congestive) heart failure; N17.9 Acute kidney failure, unspecified; J96.11 Chronic respiratory failure with hypoxia; A31.0 Pulmonary mycobacterial infection; D63.1 Anemia in chronic kidney disease; E55.9 Vitamin D deficiency, unspecified; E78.5 Hyperlipidemia, unspecified; I25.2 Old myocardial infarction; I35.0 Nonrheumatic aortic (valve) stenosis; J43.2 Centrilobular emphysema; K21.9 Gastro-esophageal reflux disease without esophagitis; N18.30 Chronic kidney disease, stage 3 unspecified; N40.0 Benign prostatic hyperplasia without lower urinary tract symptoms; Z86.12 Personal history of poliomyelitis; Z95.5 Presence of coronary angioplasty implant and graft; Z87.891 Personal history of nicotine dependence; Z20.822 Contact with and (suspected) exposure to COVID-19; Z99.81 Dependence on supplemental oxygen; Z79.82 Long term (current) use of aspirin
CPT/HCPCS: 11740; 36415; 36600; 71045; 71275; 74230; 80053; 81001; 82375; 82805; 82977; 83050; 83735; 83880; 84145; 85018; 85025; 85027; 85380; 85610; 85730; 86738; 87015; 87040; 87070; 87116; 87205; 87206; 87449; 87633; 87637; 87641; 87899; 92526; 92611; 93005; 94618; 94640; 94667; 94668; 94762; 96365; 96366; 96367; 96372; 96375; 96376; 99285; A9270; G0378; J0456; J0696; J1650; J2919; Q9967

== ENCOUNTER 2025-05-12 12:27 | Emergency (ER) | payer MEDICARE, SELFPAY ==
--- NOTE | ~2025-05-12 | XR_ITS ---
Portable chest x-ray Comparison: 04/25/2025 Clinical History: Dyspnea Findings: There is COPD and associated chronic interstitial disease. Small right pleural effusion pr esent. Cardiomediastinal silhouette is stable. Bones and soft tissues are unremarkable. Impression: COPD and chronic interstitial disease. Questionable mild superimposed pulmonary edema. Small right pleural effusion. Reviewed, dictated and finalized at [facility]. Impression: COPD and chronic interstitial disease. Questionable mild superimposed pulmonary edema. Small right pleural effusion.
--- NOTE | ~2025-05-12 | CT_ITS ---
EXAMINATION: CTA chest PE protocol DATE: 05/12/2025 14:25 INDICATION: Dyspnea. Elevated d-dimer. TECHNIQUE: Computed tomography (CT) pulmonary angiogram of the chest was performed with 100 mL Omnipa que-350 intravenous contrast. Additional 3D reconstructions utilizing coronal maximum intensity proje ction (MIP) were performed. Automated exposure control and iterative reconstruction technique were em ployed. The dose-length product was 310.42 mGy-cm. COMPARISON: 04/26/2025 FINDINGS: No pulmonary embolism. Mild emphysema. Bronchial wall thickening in the bilateral lower lobes with so me frothy appearing mucous in the right bronchus intermedius and right lower lobar bronchi consistent with bronchitis. Unchanged small right pleural effusion is been some interval improvement in groundg lass opacities and patchy consolidation in the right lower lobe consistent with improving pneumonia. There is unchanged region of peripheral round atelectasis in the posterior left lower lobe with assoc iated architectural distortion and volume loss. Additional unchanged linear discoid atelectasis at th e right middle lobe. Heart size is normal. Atherosclerotic coronary artery calcific location. No nyasia cardial effusion. Thoracic aorta is normal in caliber with no dissection. Enlargement of the central pulmonary arteries consistent with pulmonary arterial hypertension. No pathologically enlarged thorac ic lymphadenopathy. Moderate-sized sliding-type hiatal hernia. Multiple low-attenuation cysts scatter ed throughout the liver measuring up to 1.5 cm. There is also a 1.8 cm cyst at the upper pole the rig ht kidney. Mild thoracic spondylosis with bridging osteophytes at multiple levels consistent with dif fuse idiopathic skeletal hyperostosis (DISH). IMPRESSION: 1. No pulmonary embolism. 2. Decreasing consolidation in the right lower lobe consistent with improving pneumonia. 3. Unchanged small right pleural effusion. 4. Mild emphysema and enlargement of the central pulmonary arteries consistent with pulmonary arteria l hypertension. 5. Moderate-sized sliding-type hiatal hernia. Reviewed, dictated and finalized at location [facility]. IMPRESSION: 1. No pulmonary embolism. 2. Decreasing consolidation in the right lower lobe consistent with improving p neumonia. 3. Unchanged small right pleural effusion. 4. Mild emphysema and enlargement of the central pulmonary arteries consistent with pulmonary arterial hypertension. 5. Moderate-sized sliding-type hiatal hernia.
[2025-05-12 12:37] VITALS: BP 88/40; PULSE 69; RESP 22; TEMP 36.5; O2SAT 96
--- NOTE | 2025-05-12 12:57 | ECG_ITS ---
Test Date: 2025-05-12 13:01:01 Measurements Intervals [place] Rate: 62 P: 23 CA: 214 QRS: -7 QRSD: 117 T: -7 QT: 438 QTc: 446 Interpretive Statements SINUS RHYTHM WITH FIRST DEGREE AV BLOCK POSSIBLE LEFT ATRIAL ENLARGEMENT INCOMPLETE RIGHT BUNDLE BRANCH BLOCK BORDERLINE ST-T WAVE ABNORMALITY- ANT/INF LEADS BORDERLINE ECG Compared to ECG 04/25/2025 16:06:24 First degree AV block now present Electronically Signed On 05-12-2025 13:32:26 CDT by Tim Mary D.O.
[2025-05-12 12:59] VITALS: BP 111/50; PULSE 63; RESP 17; TEMP 36.6; O2SAT 100
[2025-05-12] MEDS: IPRATROPIUM 0.5 MG/ALBUTEROL SULFATE 2.5 MG AMPUL.NEB 3 ML 12 ML INHALATION (13:06)
[2025-05-12 13:10] LABS: Basophils Percent Auto 0.2 % (0.2-1.2); Hematocrit 28.4 % (42.0-52.0); Hemoglobin 8.6 g/dL (14.0-18.0); Immature Granulocyte Absolute 0.06 K/mm3 (0.00-0.031); Immature Granulocyte Percent A 0.6 % (0-0.5); Lymphocytes Absolute Auto 0.77 K/mm3 (0.9-3.2); Lymphocytes Percent Auto 7.3 % (18.3-44.2); Mean Corpuscular HGB Conc 30.3 g/dl (32-36); Mean Corpuscular Hemoglobin 28.9 pg (26-34); Mean Corpuscular Volume 95.3 fl (80-100); Mean Platelet Volume 10.2 fl (7.4-10.4); Monocytes Absolute Auto 1.2 K/mm3 (0.1-0.6); Neutrophils Absolute Auto 8.5 K/mm3 (1.3-6.7); Neutrophils Percent Auto 80.9 % (45.5-73.1); Platelet Count Result 230 k/mm3 (150-375); Red Blood Count 2.98 M/mm3 (4.6-6.20); White Blood Count 10.5 K/mm3 (4.5-10.0)
[2025-05-12 13:15] VITALS: PULSE 63; RESP 16
[2025-05-12 13:21] LABS: Alanine Aminotransferase 29 U/L (6-50); Albumin Level 3.6 g/dL (3.5-5.1); Alkaline Phosphatase 220 U/L (38-126); Anion Gap 10 mmol/L (4-12); Aspartate Amino Transferase 38 U/L (17-59); Bilirubin,Total 0.7 mg/dL (0.2-1.3); Blood Urea Nitrogen 26 mg/dL (9-20); Calcium 9.1 mg/dL (8.4-10.2); Carbon Dioxide 24 mmol/L (22-30); Chloride 100 mmol/L (98-107); Estimated CRCL calculation 43 ml/min; Estimated Glomerular Filt Rate 53; Glucose 105 mg/dL (65-110); Magnesium 2.2 mg/dL (1.6-2.3); Potassium 4.8 mmol/L (3.4-5.0); Sodium 134 mmol/L (137-145); Total Protein 7.3 g/dL (6.3-8.2)
[2025-05-12 13:22] LABS: Base Excess ABG -0.4 mEq/l (+/-2.0); Fractional Inspired Oxygen 28 %; HCO3 ABG 24.4 mEq/l (22.0-26.0); Oxygen Content ABG 12.1 %vol (16.0-22.0); Oxygen Saturation ABG 96.7 % (95.0-100.0); Oxyhemoglobin 95.4 % THb (90.0-100.0); PCO2 ABG 40.5 mmHg (35.0-45.0); PO2 ABG 87.9 mmHg (80.0-100.0); PO2 FiO2 Ratio Arterial Blood 3.14 %; Total Hemoglobin 8.9 g/dL (12.0-18.0); pH ABG 7.398 (7.350-7.450)
[2025-05-12 13:24] LABS: INR 1.4; Prothrombin Time 17.3 Seconds (11.1-14.7)
[2025-05-12 13:24] LABS: Device NASAL CANNULA; Site Drawn LEFT BRACHIAL
[2025-05-12 13:25] LABS: Partial Thromboplastin Time 57.6 Seconds (22.3-36.8)
[2025-05-12 13:28] LABS: D Dimer 1.97 ug/mL (<0.48)
[2025-05-12 13:32] LABS: NT Pro B Type Natriuretic Pept 3030 pg/mL (19.9-100); Troponin I < 0.012 ng/mL (0.000-0.034)
[2025-05-12 13:48] LABS: Lactic Acid Reflex 0.8 mmol/L (0.7-2.0)
[2025-05-12 13:53] VITALS: PULSE 75; RESP 17
[2025-05-12 14:51] LABS: Influenza A QL RT-PCR Negative (Negative); Influenza B QL RT-PCR Negative (Negative); RSV RNA, RT-PCR Negative (Negative); SARS-CoV-2 RNA PCR Negative (Negative)
[2025-05-12] MEDS: SODIUM CHLORIDE 0.9% IV 1,000 ML 999 ML IV CONT (15:00)
--- NOTE | 2025-05-12 15:04 | ED.GENADULT ---
HPI - General Adult General Chief complaint: Shortness of Breath/Dyspnea Stated complaint: SOB, Cough Time Seen by Provider: 05/12/25 12:47 History of Present Illness HPI narrative: This is an 80-year-old male multiple medical comorbidities presenting for difficulty breathing. Patient states for the last 4-5 days he has worker progressively worse shortness of breath. He has had a cough with productive sputum although he says that is pretty much normal for him. He has not had any fevers chest pain and nausea vomiting or diarrhea. In triage the patient's blood pressure was 88/40, however by time he was brought back to a room it was 111/50 without intervention. Related Data Home Medications ?Medication ?Instructions ?Recorded ?Confirmed ?Last Taken ?Type acetaminophen 500 mg tablet 1,000 mg PO Q6H PRN Pain 03/18/23 04/25/25 11/20/24 History (Tylenol Extra Strength) multivitamin 1 tablet PO DAILY 03/18/23 04/25/25 04/25/25 History cetirizine 10 mg capsule (Zyrtec) 10 mg PO DAILY PRN allergies 06/13/23 04/25/25 11/20/24 History simethicone 125 mg capsule (Gas-X 125 mg PO PRN 11/21/24 04/25/25 Unknown History Extra Strength) baclofen 10 mg tablet 10 mg PO Q12H PRN muscle spasm 12/02/24 04/25/25 Unknown History Allergies Allergy/AdvReac Type Severity Reaction Status Date / Time clonazepam AdvReac Severe Drowsy Verified 05/12/25 12:28 roflumilast (From Dalires) AdvReac Severe Diarrhea Verified 05/12/25 12:28 [facility] Past Medical History Medical History (Updated 05/12/25 @ 16:58 by Sean Layton MD) Heart failure with mildly reduced ejection fraction Pseudomonas aeruginosa infection Mycobacterium avium-intracellulare complex Congestive heart failure Colon polyps Chronic obstructive pulmonary disease Gastroesophageal reflux disease Osteoarthritis Chronic kidney disease, stage 3 Benign prostatic hyperplasia Cancer of lower jaw bone (1986) Vitamin D deficiency Essential hypertension Depression Chronic hypoxic respiratory failure, on home oxygen therapy Erythema multiforme Essential tremor Hyperlipidemia 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 History of tobacco use Polio (1951) Other chronic pain Aortic stenosis Mild - Echo 05/15/2022 NSTEMI (non-ST elevated myocardial infarction) (08/2019) Ischemic cardiomyopathy Echocardiogram 09/2021: Mildly reduced left ventricular systolic function EF of 45-50%, grade 1 diastolic dysfunction, inferior wall inferior septal wall basal inferior wall and mid inferior lateral wall hypokinesis with mild left atrial and large Atherosclerotic heart disease of [place] coronary artery without angina pectoris Abdominal aortic aneurysm, without rupture Seen on CT scan on 02/09/2018 Restless legs syndrome Spinal stenosis, lumbar region without neurogenic claudication Surgical History Surgical History History of tonsillectomy and adenoidectomy History of repair of rotator cuff bilateral History of colonoscopy with polypectomy History of bowel resection due to obstruction Presence of coronary angioplasty implant and graft History of coronary artery stent placement X2 History of mandibular surgery (1986) reconstructive surgery right mandible related to cancer Family History Family History Mother Diabetes mellitus Acute myocardial infarction Father Colon cancer COPD (chronic obstructive pulmonary disease) Sibling Colon cancer Acute myocardial infarction Lung cancer COPD (chronic obstructive pulmonary disease) Sibling COPD (chronic obstructive pulmonary disease) Sibling Congestive heart failure Sibling Dementia Social History Social History (Updated 04/26/25 @ 01:48 by Luz Colon PA-C) Social History: Surrogate medical decision maker: Yessi Morgan, daughter. Code status: Full code. Smoking packs per day: 1.5 Smoking cigarettes per day: 30.0 Years smoked: 40 Smoking pack-years: 60.00 Smoking status: Former smoker Tobacco type: cigarettes Second hand tobacco smoke exposure: No Alcohol intake: never Substance use: never Substance use type: does not use Other substance usage details: quit alcohol in 2010 Last use: Last alcohol use 2010 Do You Feel Safe in your Home?: Yes Lack of Transportation: No Lack of Food: Never True Current Housing: I Have Housing Concerned About Future Housing: No Difficulty Paying Gas/Electric Bills: No Difficulty Paying for Meds: No Currently Unemployed: No Education: High School Diploma/GED Difficulty w/ Childcare or Family Care: No Living arrangements: with family Additional living arrangements comments: . Lives in [place] with son and [id number]. 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: retired Additional occupation/education comments: [employer] Spiritual care concerns: No Agree to blood products: Yes Exam Narrative: APPEARANCE: No apparent distress. Head: atraumatic. EYES: EOMI, NOSE: Atraumatic NECK: Trachea midline RESPIRATORY: Scattered rhonchi, speaking in full sentences, saturating well on 2 L nasal cannula CARDIOVASCULAR: RRR, no peripheral edema ABDOMINAL: Non-distended soft nontender MUSCULOSKELETAl: No obvious deformities NEURO: Alert. Moving 4/4 extremities SKIN:: Warm, dry. Normal color PSYCHIATRIC: Normal affect Course Vital Signs Vital signs: Vital Signs Temperature 97.7 F 05/12/25 12:37 Pulse Rate 69 05/12/25 12:37 Respiratory Rate 22 H 05/12/25 12:37 Blood Pressure 88/40 L 05/12/25 12:37 Pulse Oximetry 96 05/12/25 12:37 Oxygen Delivery Nasal Cannula 05/12/25 12:37 Oxygen Flow Rate 2 05/12/25 12:37 Temperature 97.8 F 05/12/25 12:59 Pulse Rate 75 05/12/25 13:53 Respiratory Rate 17 05/12/25 13:53 Blood Pressure 111/50 L 05/12/25 12:59 Pulse Oximetry 100 05/12/25 12:59 Oxygen Delivery Nasal Cannula 05/12/25 12:37 Oxygen Flow Rate 2 05/12/25 12:37 Medical Decision Making [facility] Narrative Medical decision making narrative: -Course: 80-year-old male multiple respiratory comorbidities presenting for progressively worse shortness of breath and productive cough over last 5 days. He has scattered wheezing and rhonchi on exam. Blood pressures regional in triage by time he got back to a room his vital signs had normalized. Patient given a 1 hour long breathing treatment well as workup was being completed. White count 10.5, hemoglobin 8.6 which is essentially his baseline. Dimer is elevated. Reflex CT PE did not show pulmonary embolism. It showed improving pneumonia from previous studies. ABG normal. Metabolic panel unremarkable. Troponin undetectable. BNP 3000 which is slightly elevated from baseline. Patient does not appear fluid overloaded. Oxygen is at baseline. Urine not indicative infection viral swabs negative. On re-evaluation patient states he feels much better after breathing treatment. He is requesting discharge. Patient will be sent home on a one-week course Bactrim. Patient given return precautions and should follow up with his asparagus cutter/primary care physician for further management. -DDX includes but is not limited to: COPD exacerbation, pneumonia, CHF, viral syndrome Independent EKG interpretation: Rhythm [sinus], Rate 62, Burns -[normal], NV -[normal], QRS [narrow], QTC [normal], T waves -[negative for concerning inversions], ST Segments - [Negative for concerning elevations] Final interpretations: [Normal Sinus Rhythm] Vital Signs Vital Signs: Vital Signs Temperature 97.7 F 05/12/25 12:37 Pulse Rate 69 05/12/25 12:37 Respiratory Rate 22 H 05/12/25 12:37 Blood Pressure 88/40 L 05/12/25 12:37 Pulse Oximetry 96 05/12/25 12:37 Oxygen Delivery Nasal Cannula 05/12/25 12:37 Oxygen Flow Rate 2 05/12/25 12:37 Temperature 97.8 F 05/12/25 12:59 Pulse Rate 75 05/12/25 13:53 Respiratory Rate 17 05/12/25 13:53 Blood Pressure 111/50 L 05/12/25 12:59 Pulse Oximetry 100 05/12/25 12:59 Oxygen Delivery Nasal Cannula 05/12/25 12:37 Oxygen Flow Rate 2 05/12/25 12:37 Lab Data 05/12/25 13:00 05/12/25 13:00 Labs: Lab Results 05/12/25 05/12/25 05/12/25 Range/Units 13:00 13:29 14:08 WBC 10.5 H (4.5-10.0) K/mm3 RBC 2.98 L (4.6-6.20) M/mm3 Hgb 8.6 L (14.0-18.0) g/dL Hct 28.4 L (42.0-52.0) % MCV 95.3 (80-100) fl MCH 28.9 (26-34) pg MCHC 30.3 L (32-36) g/dl RDW 14.0 (11.5-14.5) % Plt Count 230 (150-375) k/mm3 MPV 10.2 (7.4-10.4) fl Immature Gran % (Auto) 0.6 H (0-0.5) % Neut % (Auto) 80.9 H (45.5-73.1) % Lymph % (Auto) 7.3 L (18.3-44.2) % [place] % (Auto) 11.0 H (2.6-8.5) % Eos % (Auto) 0.0 (0-4.4) % Baso % (Auto) 0.2 (0.2-1.2) % Lymph # (Auto) 0.77 L (0.9-3.2) K/mm3 [place] # (Auto) 1.2 H (0.1-0.6) K/mm3 Eos # (Auto) 0.0 (0-0.3) K/mm3 Baso # (Auto) 0.0 (0.0-0.1) K/mm3 Abs Immat Gran (auto) 0.06 H (0.00-0.031) K/mm3 Absolute Neuts (auto) 8.5 H (1.3-6.7) K/mm3 Absolute Nucleated RBC 0.000 (0.0-0.012) K/mm3 Nucleated RBC % 0.0 (0.0-0.2) % PT 17.3 H (11.1-14.7) Seconds INR 1.4 APTT 57.6 H (22.3-36.8) Seconds D-Dimer 1.97 H (<0.48) ug/mL Sodium 134 L (137-145) mmol/L Potassium 4.8 (3.4-5.0) mmol/L Chloride 100 (98-107) mmol/L Carbon Dioxide 24 (22-30) mmol/L Anion Gap 10 (4-12) mmol/L BUN 26 H (9-20) mg/dL Creatinine 1.30 (0.7-1.3) mg/dL Estim Creat Clear Calc 43 ml/min Estimated GFR 53 L (59 - ) Glucose 105 (65-110) mg/dL Lactic Acid 0.8 (0.7-2.0) mmol/L Calcium 9.1 (8.4-10.2) mg/dL Magnesium 2.2 (1.6-2.3) mg/dL Total Bilirubin 0.7 (0.2-1.3) mg/dL AST 38 (17-59) U/L ALT 29 (6-50) U/L Alkaline Phosphatase 220 H (38-126) U/L Troponin I < 0.012 (0.000-0.034) ng/mL NT-Pro-B Natriuret Pep 3030 H (19.9-100) pg/mL Total Protein 7.3 (6.3-8.2) g/dL Albumin 3.6 (3.5-5.1) g/dL Influenza A (RT-PCR) Negative (Negative) Influenza B (RT-PCR) Negative (Negative) RSV (RT-PCR) Negative (Negative) SARS-CoV-2 RNA (RT-PCR) Negative (Negative) ABG Data ABG results: 05/12/25 13:15 Puncture Site Left brachial ABG pH 7.398 ABG pCO2 40.5 ABG pO2 87.9 ABG PO2/FiO2 Ratio 3.14 ABG HCO3 24.4 ABG O2 Saturation 96.7 ABG O2 Content 12.1 L ABG Base Excess -0.4 A-a Gradient 64.0 Oxyhemoglobin 95.4 Total Hemoglobin 8.9 L O2 Delivery Device Nasal cannula O2 Liters/Min 2.0 FiO2 28 Discharge Plan Discharge Clinical Impression: COPD exacerbation Patient Disposition: Home Condition: Stable Instructions: Antibiotic Form, COPD (Chronic Obstructive Pulmonary Disease) (DC) Additional Instructions: You were seen in the emergency department for difficulty breathing. You improved dramatically with breathing treatments. Please continue taking her breathing treatments at home. Please complete a course of Bactrim. Please follow-up with your primary care physician or asparagus cutter for further management. If you feel your breathing is getting worse I want to return to the ED for re-evaluation. Patient Language: Gambian Prescriptions: New sulfamethoxazole-trimethoprim 800-160 mg tablet 1 tablet PO Q12H Qty: 14 0RF No Action acetaminophen [Tylenol Extra Strength] 500 mg tablet 1,000 mg PO Q6H PRN (Reason: Pain) multivitamin Tablet 1 tablet PO DAILY (DME) nebulizer and compressor Device See Rx Instructions .Route Qty: 1 0RF Rx Instructions: As directed (DME) nebulizer accessories Kit See Rx Instructions .Route Qty: 1 0RF Rx Instructions: As directed baclofen 10 mg tablet 10 mg PO Q12H PRN (Reason: muscle spasm) sulfamethoxazole-trimethoprim 800-160 mg Tablet 2 tablet PO Q12HR Qty: 12 0RF Bevespi Aerosphere 9-4.8 mcg HFA aerosol inhaler 2 puff inhalation BID Qty: 10.7 0RF azithromycin 250 mg tablet 250 mg PO DAILY Qty: 2 0RF cefdinir 300 mg capsule 300 mg PO Q12H Qty: 6 0RF furosemide 20 mg tablet 20 mg PO DAILY Qty: 10 0RF Zyrtec 10 mg Capsule 10 mg PO DAILY PRN (Reason: allergies) polyethylene glycol 3350 [Miralax] 17 gram Powder In Packet 17 g PO QAM PRN (Reason: Constipation) Qty: 30 0RF aspirin 81 mg Tablet,Delayed Release (Dr/Ec) 81 mg PO DAILY Qty: 90 0RF simethicone [Gas-X Extra Strength] 125 mg Capsule 125 mg PO PRN fenofibrate 160 mg tablet 160 mg PO DAILY Qty: 90 2RF Linzess 290 mcg capsule See Rx Instructions .ROUTE .COMPLEX Qty: 90 3RF Dose Instruction: TAKE 1 CAPSULE BY MOUTH DAILY Rx Instructions: TAKE 1 CAPSULE BY MOUTH DAILY esomeprazole magnesium 20 mg capsule,delayed release(DR/EC) See Rx Instructions .ROUTE .COMPLEX Qty: 90 3RF Dose Instruction: TAKE 1 CAPSULE BY MOUTH DAILY Rx Instructions: TAKE 1 CAPSULE BY MOUTH DAILY albuterol sulfate 90 mcg/actuation HFA aerosol inhaler 2 puff INHALATION Q4H PRN (Reason: Shortness Of Breath Or Wheezing) Qty: 8.5 5RF nitroglycerin 0.4 mg tablet, sublingual 0.4 mg sublingual Q5M PRN (Reason: chest pain) Qty: 25 3RF Rx Instructions: do not exceed 3 doses per episode albuterol sulfate 2.5 mg /3 mL (0.083 %) solution for nebulization 2.5 mg inhalation Q4H PRN (Reason: shortness of breath or wheezing) Qty: 90 3RF bupropion HCl 150 mg tablet sustained-release 12 hr 150 mg PO BID Qty: 180 2RF metoprolol succinate 50 mg tablet extended release 24 hr 50 mg PO HS Qty: 90 1RF hydroxyzine HCl 25 mg tablet 25 mg PO QID PRN (Reason: anxiety) Qty: 50 2RF trazodone 100 mg tablet 100 mg PO HS Qty: 90 1RF tamsulosin 0.4 mg capsule 0.4 mg PO BID Qty: 180 3RF lorazepam 0.5 mg tablet 0.5 mg PO BID PRN (Reason: anxiety) Qty: 60 3RF tobramycin-dexamethasone 0.3-0.1 % drops,suspension 1 drp EACH EYE QID Qty: 10 0RF sulindac 200 mg tablet 200 mg PO BID Qty: 180 1RF atorvastatin 80 mg tablet 80 mg PO DAILY Qty: 90 1RF guaifenesin 600 mg tablet extended release 12hr 1,200 mg PO BID Qty: 120 3RF sertraline 50 mg tablet 50 mg PO DAILY Qty: 90 3RF benzonatate 200 mg capsule See Rx Instructions .ROUTE .COMPLEX Qty: 90 0RF Dose Instruction: TAKE 1 CAPSULE BY MOUTH THREE TIMES DAILY NEEDED FOR COUGH Rx Instructions: TAKE 1 CAPSULE BY MOUTH THREE TIMES DAILY NEEDED FOR COUGH acyclovir 400 mg tablet 400 mg PO TID Qty: 21 0RF morphine 30 mg tablet extended release 30 mg PO QAM Qty: 30 0RF Follow-up/Referrals: Naveed Mcintosh MD [Primary Care Provider] -
[2025-05-12 15:52] LABS: Add Urine Microscopic? NO; Appearance Urine Clear (Clear); Bilirubin Urine Negative (Negative); Blood Urine Negative (Negative); Color Urine Yellow (Yellow); Glucose Urine UA Negative (Negative); Ketones Urine Negative (Negative); Leukocyte Esterase Ur Negative LEU/UL (Negative); Nitrate Urine Negative (Negative); Protein Urine Negative (Negative); Specific Grav Ur 1.038 (1.001-1.035); pH Urine 5.5 (5.0-9.0)
[2025-05-12 17:30] VITALS: BP 108/90; PULSE 78; RESP 18; O2SAT 98
[2025-05-12] MEDS: dexAMETHasone SOD PHOS INJ 10 MG/ML 1 ML VIAL IV PUSH (17:30)
== END 2025-05-12 17:30 | disposition home or self-care (01) ==
PROVIDERS: Emergency Provider Emergency Medicine; PCP Family Medicine Adolescent Medicine
DX: J44.1 Chronic obstructive pulmonary disease with (acute) exacerbation (principal); I50.9 Heart failure, unspecified; N18.30 Chronic kidney disease, stage 3 unspecified; K21.9 Gastro-esophageal reflux disease without esophagitis; E55.9 Vitamin D deficiency, unspecified; I13.0 Hypertensive heart and chronic kidney disease with heart failure and stage 1 through stage 4 chronic kidney disease, or unspecified chronic kidney disease; E78.5 Hyperlipidemia, unspecified; Z86.12 Personal history of poliomyelitis; Z87.891 Personal history of nicotine dependence; Z20.822 Contact with and (suspected) exposure to COVID-19
CPT/HCPCS: 36415; 36600; 71045; 71275; 80053; 81003; 82805; 83605; 83735; 83880; 84484; 85018; 85025; 85380; 85610; 85730; 87637; 93005; 94640; 96361; 96374; 99284; J1100; J7030; Q9967

== ENCOUNTER 2025-05-30 11:00 | Inpatient (IN) | payer MEDICARE, MEDICAID, SELFPAY ==
[2025-05-30] VITALS (49 sets, daily range): BP systolic 93–120; BP diastolic 33–99; PULSE 72–88; RESP 12–28; TEMP 36.7–36.8; O2SAT 94–100; BMI 21.7
--- NOTE | ~2025-05-30 | CT_ITS ---
CLINICAL INDICATION: Pneumonia, history of SNEHA COMPARISON: 05/12/2025. TECHNIQUE: Multiple contiguous axial images of the chest was performed without the administration of intravenous contrast. This CT examination was performed utilizing dose reduction techniques. DLP: 227 mGy-cm FINDINGS/OBSERVATIONS: LUNG: Worsening right-sided pleural effusion and pleural thickening. Increased attenuation is identified surrounding the effusion, for which a rind is suspected. Interstitial thickening is redemonstrated within the bilateral lung short, right greater than left. Volume loss is now detected within the right hemithorax, an interval change from prior. Varicose bronchiectasis is present within the bilateral lower lobes. Interval development of patchy groundglass opacification, worsening within the inferior segment of th e left upper lobe. Centrilobular emphysematous disease within the bilateral upper lobes. Within the right inferior lobar bronchus is a persistent focus of mixed attenuation along the posteri or wall, increased in size from 05/12/2025 which may represent aspiration and ingested material, for w hich persistent aspiration is demonstrated. This focus was not present on the 04/26/2025 CT examination. HEART: The heart is of normal size, without pericardial effusion. MEDIASTINUM: Worsening mediastinal lymphadenopathy, when compared with previous study performed 2024. The largest lymph node is within the right paratracheal region measuring 12 mm in short axis di mension. Multiple calcified lymph nodes are also noted suggesting prior granulomatous disease. SOFT TISSUES OF THE CHEST: Unremarkable. BONES OF THE CHEST: No acute fracture. No lytic or blastic lesions are identified. UPPER ABDOMEN: Redemonstration of innumerable foci of decreased attenuation within the liver, unchanged from 024 IMPRESSION: Worsening appearance of the bilateral lung short, right greater than left, with volume loss and sandhya tional findings in the dependent portion of the right chest for which a developing rind is suspected. Findings consistent with patient's known SNEHA infection, as detailed above. Continued aspiration is also suspected with residual (likely) aspirated products within the right inf erior lobar bronchus. Worsening mediastinal lymphadenopathy is also present, as detailed above. Reviewed, dictated and finalized at location A. IMPRESSION: Worsening appearance of the bilateral lung short, right greater than left, wit h volume loss and additional findings in the dependent portion of the right alberto st for which a developing rind is suspected. Findings consistent with patient's known SNEHA infection, as detailed above. Continued aspiration is also suspected with residual (likely) aspirated product s within the right inferior lobar bronchus. Worsening mediastinal lymphadenopathy is also present, as detailed above.
--- NOTE | ~2025-05-30 | XR_ITS ---
Portable chest x-ray Comparison: Shortness of breath Clinical History: 05/12/2025 Findings: Small right pleural effusion present. There is worsening hazy and interstitial disease in the right lung base and right midlung. Possible minimal haziness left lung base. Cardiomediastinal s ilhouette is stable. Bones and soft tissues are unremarkable. Impression: Probable mild pulmonary edema, worse in the right lung than left, versus possibly pneumonia. Correlat e clinically. Small right pleural effusion. Reviewed, dictated and finalized at location . Impression: Probable mild pulmonary edema, worse in the right lung than left, versus possib ly pneumonia. Correlate clinically. Small right pleural effusion.
--- OUTSIDE RECORDS SUMMARY | 2025-05-30 11:04 | XMS_ITS | Clinical Summary ---
Author Organization [employer] [id number] [facility] Address [address] [place] [address] Care Team Providers Care Internship Coordinator Name Role Phone Naveed Mcintosh MD Primary Care Provider [phone] Allergies No known active allergies Medications meloxicam [...] Take 1 Tablet by mouth daily. Active Nurst-3-QZD-EPA -Fish Oil (FISH OIL) 1,000 mg (120 [...] 1-dose 75+ series) 2019 INFLUENZA VACCINE (#1) 2025 Insurance [facility] [id number] Care Teams Internship Coordinator Relationship Specialty Start Date End Date Naveed Mcintosh MD PCP - General Family Practice 05/18/19
--- OUTSIDE RECORDS SUMMARY | 2025-05-30 11:04 | XMS_ITS | Encounter Summary ---
Author Organization [facility] Address [address] [place] [address] Phone Care Team Providers Care Heating Repair Technician Name Role Phone Naveed Mcintosh MD Primary Care Prov ider Encounter Details Date Type Department Care Team (Late st Contact Info) Description 05/30/2025 Telephone [facility] Infectious Diseases [address] [place] [id number] Alyssa Chen Social History Tobacco Use Types Packs/Day Years Used Date Smoking Tobacco: Former Cigarettes 1.5 65 0 03/12/1957 - 09/19/2018 Smokeless Tobacco: Never Comments:Quit 08/2019 Alcohol Use Standard Drinks/Week Comments Not Currently 0 (1 standard drink = 0.6 oz pur e alcohol) Sex and Gender Information Value Date Recorded Sex Assigned at Not on file Legal Sex Male 9:37 AM FURNITURE SPRAYER Gender Identity Male 11/26/2019 3:10 PM FURNITURE SPRAYER Sexual Orientation Not on file documented as of this encounter Miscellaneous Notes * Telephone Encounter - Daniella Leach - 05/30/2025 9:06 AM CDT Duplicate call, spoke with pt. * Telephone Encounter - Alyssa Chen - 05/30/2025 8:42 AM CDT Patient calling back, received missed call P: [phone] documented in this encounter Plan of Treatment Not on file documented as of this encounter Visit Diagnoses Not on filedocumented in this encounter Care Teams Heating Repair Technician Relationship Specialty Start Date End Date Naveed Mcintosh MD [address] [place] [address] PCP - General Family Medicine 10/07/19 documented as of this encounter
--- OUTSIDE RECORDS SUMMARY | 2025-05-30 11:04 | XMS_ITS | Referral Summary ---
Author Organization [facility] [id number] Address [address] [place] [address] Care Team Providers Care Track Vehicle Repairer Name Role Phone Naveed Mcintosh MD Primary Care Prov ider Encounters Date Type Department Care Team Description 05/30/2025 Telephone [facility] Infectious Diseases [address] [place] [phone] Alyssa Chen 05/30/2025 Telephone [facility] Infectious Diseases [address] [place] [phone] Enma Tate RMA 05/04/2025 Telephone [facility] Infectious Diseases [address] [place] [phone] Kaylin Horvath, TANIA 05/04/2025 Telephone [facility] Infectious Diseases [address] [place] [phone] Daniella Leach 05/02/2025 1:22 PM CDT - 05/02/2025 11:59 PM CDT Hospital Encounter [facility] [address] [place] [address] Discharge Disposition: Discharge to home or self care 05/02/2025 10:24 AM CDT - 05/02/2025 11:59 PM CDT Hospital Encounter [facility] [address] [place] [id number] Diagnosis unknown Discharge Disposition: Discharge to home or self care 05/02/2025 10:17 AM CDT - 05/02/2025 11:59 PM CDT Hospital Encounter [facility] [address] [place] [id number] Discharge Disposition: Discharge to home or self care 05/02/2025 8:40 AM CDT Office Visit [facility] Infectious Diseases [address] [place] [phone] Gladys Larson NP Mycobacterial infection, unspecified 04/25/2025 Documentation Internal Medicine Gladys Toure MD Transfer Notification 03/27/2025 Telephone [facility] Infectious Diseases [address] [place] [phone] [facility] Aigner, E COMMERCE MANAGER from Last 3 Months Allergies Active Allergy [...] 80 mg tabletIndicatio ns:Coronary artery disease involving [place] coronary artery of [place] heart without angina pectoris TAKE 1 TABLET [...] 25 mg tabletIndicatio ns:Coronary artery disease involving [place] coronary artery of [place] heart without angina pectoris Take 1 tablet (25 mg total) by mouth daily 90 tablet 3 4 Active metoprolol XL (TOPROL-XL) 50 mg extended release tablet Take 1 tablet (50 mg total) by mouth nightly at bedtime. 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 Gender Identity Male 11/26/2019 3:10 PM DIGITAL MEDIA SPECIALIST Sexual Orientation Not on file Last Filed Vital Signs Vital Sign Reading Time Taken Comments Blood Pressure 90/51 05/02/2025 9:28 AM CDT Pulse 66 05/02/2025 9:13 AM CDT Temperature - - Respiratory Rate - - Oxygen Saturation 96% 05/02/2025 9:21 AM CDT Inhaled Oxygen Concentration - - Weight 85.3 kg (188 lb) 01/04/2025 11:39 AM DIGITAL MEDIA SPECIALIST Height 180.3 cm (5' 10.98) 05/02/2025 9:13 AM C DT Body Mass Index 26.22 01/04/2025 11:39 AM DIGITAL MEDIA SPECIALIST Plan of Treatment Not on file Procedures Procedure Name Priority Date/Time Associated Diagnosis Comments EGFR Routine 05/02/2025 10:25 AM CDT Mycobacterial infection, unspecified DIFFERENTIAL AUTO Routine 05/02/2025 10: 25 AM CDT Mycobacterial infection, unspecified GLUCOSE, RANDOM (OUTREACH) Routine 05/02/2025 10:25 AM CDT Mycobacterial infection, unspecified COMPREHENSIVE METABOLIC PANEL WITHOUT GLUCOSE (OUTREACH) Routine 05/02/2025 10:25 AM CDT Mycobacterial infection, unspecified COMPREHENSIVE METABOLIC PANEL (OUTREACH) Routine 05/02/2025 10:25 AM CDT Mycobacterial infection, unspecified CBC WITH AUTO DIFFERENTIAL Routine 05/02/2025 10:25 AM CDT Mycobacterial infection, unspecified CT BODY OUTSIDE CONSULT Routine 05/02/2025 10:24 AM CDT Diagnosis unknown CT BODY OUTSIDE REFERENCE Routine 05/02/2025 10:17 AM CDT from Last 3 Months Results * Glucose, random (Outreach) (05/02/2025 10:25 AM CDT) Glucose 107 70 - 199 mg/dL Comment: Interpretive Data Fasting glucose >/= 126 mg/dl is diagnostic for diabetes. Fasting is defined as no caloric intake for at least 8 hours. Fasting glucose between 100 mg/dl to 125 mg/dl is diagnostic of prediabetes. In a patient with classic symptoms of hyperglycemia or hyperglycemic crisis, a random glucose >/= 200 mg/dl is diagnostic for diabetes. In the absence of unequivocal hyperglycemia, results should be confirmed by repeat testing. The classification and Diagnosis of Diabetes Diabetes Care 2021; 46: S19-S40. Current interpretive data was last revised 2022. Blood 05/02/2025 10:2 5 AM CDT 05/02/2025 2:09 PM CDT us Gladys Larson NP LAB BLOOD ORDERABLES F inal Result [facility] Department [place] [address] * (ABNORMAL) eGFR (05/02/2025 10:25 AM CDT) eGFR 35(L) >=60 mL/min/1. 73 m2 Comment: Interpretive Data Reference Interval Normal >/= 90 mL/min/1.73m2 Mildly decreased* 60 - 89 mL/min/1.73m2 Mildly to moderately decreased 45 - 59 mL/min/1.73m2 Moderately to severely decreased 30 - 44 mL/min/1.73m2 Severely decreased 15 - 29 mL/min/1.73m2 Kidney Failure < 15 mL/min/1.73m2 *Relative to young adult level Estimated glomerular filtration rate is determined by the 2020 CKD-EPI equation recommended by the National Kidney Foundation (A Unifying Approach to GFR Estimation: Recommendations of the NKF-ASK Task Force on Reassessing the Inclusion of Race in Diagnosing Kidney Disease, JASN 2020). The CKD-EPI equation should not be used for patients with unstable renal function and has not been validated in children and those over 70. Current interpretive data was last reviewed 2021. Blood 05/02/2025 10:2 5 AM CDT 05/02/2025 2:19 PM CDT us Gladys Larson NP LAB BLOOD ORDERABLES F inal Result [facility] Department [place] [address] * (ABNORMAL) Differential, auto (05/02/2025 10:25 AM CDT) Pathologist [facility] Neutrophil abs 6.97(H) 1.50 - 6.50 K/cumm Imm gran abs 0.13(H) 0.00 - 0.10 K/cumm [facility] Lymphocyte abs 1.24 0.80 - 3.30 K/cumm [facility] Monocyte abs 0.99(H) 0.20 - 0.80 K/cumm [facility] Eosinophil abs 0.52(H) 0.00 - 0.50 K/cumm [facility] Basophil abs 0.04 0.00 - 0.10 K/cumm [facility] Neutrophil pct 70.5 % [facility] Comment: Interpretive Data Percent cell count reference ranges are not reported, since discordance with absolute values may lead to misinterpretation of CBC data. Current Interpretive Data was last revised on 2018. Imm gran pct 1.3 % [facility] Comment: Interpretive Data Percent cell count reference ranges are not reported, since discordance with absolute values may lead to misinterpretation of CBC data. Current Interpretive Data was last revised on 2018. Lymphocyte pct 12.5 % [facility] Comment: Interpretive Data Percent cell count reference ranges are not reported, since discordance with absolute values may lead to misinterpretation of CBC data. Current Interpretive Data was last revised on 2018. Monocyte pct 10.0 % [facility] Comment: Interpretive Data Percent cell count reference ranges are not reported, since discordance with absolute values may lead to misinterpretation of CBC data. Current Interpretive Data was last revised on 2018. Eosinophil pct 5.3 % [facility] Comment: Interpretive Data Percent cell count reference ranges are not reported, since discordance with absolute values may lead to misinterpretation of CBC data. Current Interpretive Data was last revised on 2018. Basophil pct 0.4 % [facility] Comment: Interpretive Data Percent cell count reference ranges are not reported, since discordance with absolute values may lead to misinterpretation of CBC data. Current Interpretive Data was last revised on 2018. Blood 05/02/2025 10:2 5 AM CDT 05/02/2025 2:09 PM CDT Gladys Larson NP LAB BLOOD ORDERABLES F inal Result [facility] [address] [facility] Department [place] [address] * (ABNORMAL) Comprehensive metabolic panel, without glucose (Outreach) (05/02/2025 10:25 AM CDT) Sodium 134(L) 135 - 145 mmol/L Potassium, pl 5.8(H) 3.3 - 4.9 mmol/L [facility] Chloride 100 97 - 110 mmol/L [facility] CO2 27 22 - 32 mmol/L [facility] Anion gap 7 2 - 15 mmol/L [facility] BUN 21 6 - 25 mg/dL [facility] Creatinine 1.90(H) 0.80 - 1.30 mg/dL [facility] Calcium 9.6 8.5 - 10.3 mg/dL [facility] Protein, pl 7.5 6.5 - 8.5 g/dL [facility] Albumin 3.8 3.5 - 5.0 g/dL [facility] Bilirubin, total 0.2 0.1 - 1.2 mg/dL [facility] Alk phos 227(H) 40 - 130 Units/L [facility] AST 25 10 - 50 Units/L [facility] ALT 19 7 - 55 Units/L [facility] Blood 05/02/2025 10:2 5 AM CDT 05/02/2025 2:09 PM CDT us Gladys Larson NP LAB BLOOD ORDERABLES F inal Result [facility] Department [place] [address] * (ABNORMAL) CBC with auto differential (05/02/2025 10:25 AM CDT) [facility] WBC 9.89 3.80 - 9.90 K/cumm Hgb 10.0(L) 13.0 - 17.5 g/dL [facility] Hct 32.2(L) 38.9 - 50.3 % [facility] Plt 322 150 - 400 K/cumm [facility] MPV 11.1 9.1 - 12.3 fL [facility] RBC 3.41(L) 4.30 - 5.80 M/cumm [facility] MCV 94.4 81.3 - 96.4 fL [facility] MCH 29.3 27.1 - 33.3 pg [facility] MCHC 31.1(L) 32.3 - 35.7 g/dL [facility] RDW CV 14.3 11.1 - 14.9 % [facility] RDW SD 48.4(H) 35.7 - 48.1 fL [facility] NRBC abs 0.00 0.00 - 0.01 K/cumm [facility] Blood 05/02/2025 10:2 5 AM CDT 05/02/2025 2:09 PM CDT us Gladys Larson NP LAB BLOOD ORDERABLES F inal Result [facility] [place] [address] * CT Body Outside Consult (05/02/2025 10:24 AM CDT) Anatomical Region Laterality Modality Body N/A Computed Tomogra phy 05/02/2025 10:3 8 AM CDT Impressions 05/02/2025 10:38 AM CDT 1. Right greater than left bilateral lower lung consolidative opacities with peribronchial thickening are concerning for multifocal pneumonia which have increased compared to the prior study from 11/20/2024. 2. Findings concerning for a small right empyema, also mildly increased. 3. Reactive hilar and mediastinal lymph nodes. 4. Emphysema. The findings, conclusions and recommendations within this report do not replace the initial findings, conclusions and recommendations made at the facility where the study was performed based upon the imaging and clinical condition at that time. Comparison with the prior report and clinical history is necessary. The provided images may or may not represent the [place] source data set and thus may contain changes that may lower the accuracy of this second-opinion interpretation. Electronically signed by: Adele Shipman M.D. Narrative 05/02/2025 10:38 AM CDT EXAMINATION: RADIOLOGY CONSULTATION ON OUTSIDE IMAGING STUDY STUDY INITIALLY PERFORMED: 04/26/2025 at [facility] [place]. TYPE OF STUDY: Multiple CT images of the chest with intravenous contrast are provided at the time of this interpretation. CONTRAST ROUTE: Contrast was administered via the intravenous route. The protocol was adequate to address the clinical question. The outside final report was not available at the time of this second opinion interpretation. TYPE OF CONSULTATION: Consult on outside imaging study with images submitted through Outside Image Sharing Service DATE OF CONSULTATION: 05/02/2025 10:26 AM HISTORY: History of mycobacterium avium complex infection. COMPARISON: 11/20/2024. 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 Right more than left bilateral lower lung consolidative opacities with peribronchial thickening are concerning for multifocal pneumonia which have increased compared to the prior study from 11/20/2024. There is a small right and trace left pleural effusion with predominant 2 right pericardial thickening concerning for empyema. There is no pneumothorax. Airways are clear. There is mild cardiomegaly. No pericardial effusion. Atherosclerotic constipation of the coronary arteries are seen. Ascending aorta is normal in caliber. There are multiple enlarged right hilar lymph node measuring 2 cm in their right. Mildly prominent mediastinal lymph nodes are also seen, unchanged. Multiple liver cysts are seen. Mild splenomegaly is partially imaged. Calcified granulomatous spleen. Small hiatal hernia. There is no suspicious osseous lesion. Degenerative changes are seen throughout the spine. Procedure Note Adele Arroyo MD - 05/02/2025 EXAMINATION: RADIOLOGY CONSULTATION ON OUTSIDE IMAGING STUDY STUDY INITIALLY PERFORMED: 04/26/2025 at [facility] [place]. TYPE OF STUDY: Multiple CT images of the chest with intravenous contrast are provided at the time of this interpretation. CONTRAST ROUTE: Contrast was administered via the intravenous route. The protocol was adequate to address the clinical question. The outside final report was not available at the time of this second opinion interpretation. TYPE OF CONSULTATION: Consult on outside imaging study with images submitted through Outside Image Sharing Service DATE OF CONSULTATION: 05/02/2025 10:26 AM HISTORY: History of mycobacterium avium complex infection. COMPARISON: 11/20/2024. 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 Right more than left bilateral lower lung consolidative opacities with peribronchial thickening are concerning for multifocal pneumonia which have increased compared to the prior study from 11/20/2024. There is a small right and trace left pleural effusion with predominant 2 right pericardial thickening concerning for empyema. There is no pneumothorax. Airways are clear. There is mild cardiomegaly. No pericardial effusion. Atherosclerotic constipation of the coronary arteries are seen. Ascending aorta is normal in caliber. There are multiple enlarged right hilar lymph node measuring 2 cm in their right. Mildly prominent mediastinal lymph nodes are also seen, unchanged. Multiple liver cysts are seen. Mild splenomegaly is partially imaged. Calcified granulomatous spleen. Small hiatal hernia. There is no suspicious osseous lesion. Degenerative changes are seen throughout the spine. IMPRESSION: 1. Right greater than left bilateral lower lung consolidative opacities with peribronchial thickening are concerning for multifocal pneumonia which have increased compared to the prior study from 11/20/2024. 2. Findings concerning for a small right empyema, also mildly increased. 3. Reactive hilar and mediastinal lymph nodes. 4. Emphysema. The findings, conclusions and recommendations within this report do not replace the initial findings, conclusions and recommendations made at the facility where the study was performed based upon the imaging and clinical condition at that time. Comparison with the prior report and clinical history is necessary. The provided images may or may not represent the [place] source data set and thus may contain changes that may lower the accuracy of this second-opinion interpretation. Electronically signed by: Adele Shipman M.D. Lukas Adams MD IM CT PROCEDURES Final Resu lt * CT Body Outside Reference (05/02/2025 10:17 AM CDT) Impressions [facility] - 05/02/2025 10:17 AM CDT These images are for Reference purposes only and have not been reviewed by [facility]iology. There will be no report generated by a [facility] Radiologist. Narrative [facility] - 05/02/2025 10:17 AM CDT EXAMINATION: Images For Reference Purposes Only Lukas Adams MD IM CT PROCEDURES Final Resu lt [facility] from Last 3 Months Insurance [facility] MEDICARE ADVANTAGE MEDICARE ADVANTAGE Care Teams Track Vehicle Repairer Relationship Specialty Start Date End Date Naveed Mcintosh MD [address] [place] [address] PCP - General Family Medicine 10/07/19
--- OUTSIDE RECORDS SUMMARY | 2025-05-30 11:04 | XMS_ITS | Clinical Summary ---
Author Organization [facility] [address] Address [address] [place] [address] Care Team Providers Care Domestic Maid Name Role Phone Naveed Mcintosh MD Primary [...] 80 mg tabletIndicatio ns:Coronary artery disease involving [place] coronary artery of [place] heart without angina pectoris TAKE 1 TABLET [...] 25 mg tabletIndicatio ns:Coronary artery disease involving [place] coronary artery of [place] heart without angina pectoris Take 1 tablet (25 mg total) by mouth daily 90 tablet 3 4 Active metoprolol XL (TOPROL-XL) 50 mg extended release tablet Take 1 tablet (50 mg total) by mouth nightly at bedtime. Active LORazepam (ATIVAN) 0.5 mg tablet Take by mouth 2 (two) times a day as needed 5 Active Active Problems Problem Noted Date Diagnosed Date Coronary artery disease invo lving [place] coronary artery of [place] heart without angina pectoris 10/28/2019 Ischemic cardiomyopathy 10/28/2019 Spinal stenosis 09/26/2015 Pain of right lower extremity 09/26/2015 Notalgia 09/25/2015 Encounters Date Type Department Care Team Description 05/30/2025 Telephone [facility] Infectious Diseases [address] [place] [phone] Alyssa Chen 05/30/2025 Telephone [facility] Infectious Diseases [address] [place] [address] [phone] Enma Tate RMA 05/04/2025 Telephone [facility] Infectious Diseases [address] [place] [address] [phone] Kaylin Horvath CMA 05/04/2025 Telephone [facility] Infectious Diseases [address] [place] [phone] Daniella Leach 05/02/2025 1:22 PM CDT - 05/02/2025 11:59 PM CDT Hospital Encounter [facility] [address] [place] [address] Discharge Disposition: Discharge to home or self care 05/02/2025 10:24 AM CDT - 05/02/2025 11:59 PM CDT Hospital Encounter [facility] [address] [place] [address] Diagnosis unknown Discharge Disposition: Discharge to home or self care 05/02/2025 10:17 AM CDT - 05/02/2025 11:59 PM CDT Hospital Encounter [facility] [address] [place] [address] Discharge Disposition: Discharge to home or self care 05/02/2025 8:40 AM CDT Office Visit [facility] Infectious Diseases [address] [facility] [address] [place] [phone] Gladys Larson NP Mycobacterial infection, unspecified 04/25/2025 Documentation Internal Medicine Gladys Toure MD Transfer Notification 03/27/2025 Telephone [facility] Infectious Diseases [address] [place] [phone] [facility], Daniela TANIA Rothman from Last 3 Months Surgical [...] on file 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 Gender Identity Male 11/26/2019 3:10 PM STAKING PRESS OPERATOR Sexual Orientation Not on file Obstetrics History Last Filed Vital Signs Vital Sign Reading Time Taken Comments Blood Pressure 90/51 05/02/2025 9:28 AM CDT Pulse 66 05/02/2025 9:13 AM CDT Temperature - - Respiratory Rate - - Oxygen Saturation 96% 05/02/2025 9:21 AM CDT Inhaled Oxygen Concentration - - Weight 85.3 kg (188 lb) 01/04/2025 11:39 AM STAKING PRESS OPERATOR Height 180.3 cm (5' 10.98) 05/02/2025 9:13 AM C DT Body Mass Index 26.22 01/04/2025 11:39 AM STAKING PRESS OPERATOR Plan of Treatment Health Maintenance Due Date Last Done Comments Depression Screening 1944 Fall Risk Assessment 1944 DTaP/Tdap/Td Vaccine (1 - Tdap) 1955 Hepatitis B Screening 1962 Pneumococcal vaccine 65+ (1 of 2 - PCV) 1963 Abdominal Aortic Aneurysm (AAA) Screen 2009 Well Visit 65+ 2009 Zoster Vaccine (2 of 3) 11/21/2017 09/26/2017 Covid-19 Vaccine (3 - season) 2024, 01/22/2021 Influenza Vaccine (#1) 2025 09/26/2017, 2015 Procedures Procedure Name Priority Date/Time [...] NP LAB BLOOD ORDERABLES F inal Result [facility] [place] [address] * (ABNORMAL) eGFR (05/02/2025 10:25 AM CDT) [...] NP LAB BLOOD ORDERABLES F inal Result [facility] [place] [address] * (ABNORMAL) Differential, auto (05/02/2025 10:25 AM CDT) Neutrophil abs 6.97(H) 1.50 - 6.50 K/cumm Imm gran abs 0.13(H) 0.00 - 0.10 K/cumm [facility] Lymphocyte abs 1.24 0.80 - 3.30 K/cumm [facility] Monocyte abs 0.99(H) 0.20 - 0.80 K/cumm [facility] Eosinophil abs 0.52(H) 0.00 - 0.50 K/cumm [facility] Basophil abs 0.04 0.00 - 0.10 K/cumm [facility] Neutrophil pct 70.5 % [facility] Comment: Interpretive Data Percent cell count reference ranges are not reported, since discordance with absolute values may lead to misinterpretation of CBC data. Current Interpretive Data was last revised on 2018. Imm gran pct 1.3 % [facility] Comment: Interpretive Data Percent cell count reference ranges are not reported, since discordance with absolute values may lead to misinterpretation of CBC data. Current Interpretive Data was last revised on 2018. Lymphocyte pct 12.5 % [facility] Comment: Interpretive Data Percent cell count reference ranges are not reported, since discordance with absolute values may lead to misinterpretation of CBC data. Current Interpretive Data was last revised on 2018. Monocyte pct 10.0 % [facility] Comment: Interpretive Data Percent cell count reference ranges are not reported, since discordance with absolute values may lead to misinterpretation of CBC data. Current Interpretive Data was last revised on 2018. Eosinophil pct 5.3 % [facility] Comment: Interpretive Data Percent cell count reference ranges are not reported, since discordance with absolute values may lead to misinterpretation of CBC data. Current Interpretive Data was last revised on 2018. Basophil pct 0.4 % [facility] Comment: Interpretive Data Percent cell count reference ranges are not reported, since discordance with absolute values may lead to misinterpretation of CBC data. Current Interpretive Data was last revised on 2018. Blood 05/02/2025 10:2 5 AM CDT 05/02/2025 2:09 PM CDT us Gladys Larson INSULATION APPLICATOR LAB BLOOD ORDERABLES F inal Result [facility] [place] [address] * (ABNORMAL) Comprehensive metabolic panel, without glucose (Outreach) (05/02/2025 10:25 AM CDT) Sodium 134(L) 135 - 145 mmol/L Potassium, pl 5.8(H) 3.3 - 4.9 mmol/L [facility] Chloride 100 97 - 110 mmol/L [facility] CO2 27 22 - 32 mmol/L [facility] Anion gap 7 2 - 15 mmol/L [facility] BUN 21 6 - 25 mg/dL [facility] Creatinine 1.90(H) 0.80 - 1.30 mg/dL [facility] Calcium 9.6 8.5 - 10.3 mg/dL [facility] Protein, pl 7.5 6.5 - 8.5 g/dL [facility] Albumin 3.8 3.5 - 5.0 g/dL [facility] Bilirubin, total 0.2 0.1 - 1.2 mg/dL [facility] Alk phos 227(H) 40 - 130 Units/L [facility] AST 25 10 - 50 Units/L [facility] ALT 19 7 - 55 Units/L [facility] Blood 05/02/2025 10:2 5 AM CDT 05/02/2025 2:09 PM CDT us Gladys Larson INSULATION APPLICATOR LAB BLOOD ORDERABLES F inal Result [facility] [place] [address] * (ABNORMAL) CBC with auto differential (05/02/2025 10:25 AM CDT) Pathologist [facility] WBC 9.89 3.80 - 9.90 K/cumm Hgb 10.0(L) 13.0 - 17.5 g/dL [facility] Hct 32.2(L) 38.9 - 50.3 % [facility] Plt 322 150 - 400 K/cumm [facility] MPV 11.1 9.1 - 12.3 fL [facility] RBC 3.41(L) 4.30 - 5.80 M/cumm [facility] MCV 94.4 81.3 - 96.4 fL [facility] MCH 29.3 27.1 - 33.3 pg [facility] MCHC 31.1(L) 32.3 - 35.7 g/dL [facility] RDW CV 14.3 11.1 - 14.9 % [facility] RDW SD 48.4(H) 35.7 - 48.1 fL [facility] NRBC abs 0.00 0.00 - 0.01 K/cumm [facility] Blood 05/02/2025 10:2 5 AM CDT 05/02/2025 2:09 PM CDT Gladys Larson NP LAB BLOOD ORDERABLES F inal Result [facility] [place] [address] * CT Body Outside Consult (05/02/2025 10:24 [...] images may or may not represent the [place] source data set and thus may contain changes that may lower the accuracy of this second-opinion interpretation. Electronically signed by: Nadege Cruz 05/02/2025 10:38 AM CDT EXAMINATION: RADIOLOGY CONSULTATION ON OUTSIDE IMAGING STUDY STUDY INITIALLY PERFORMED: 04/26/2025 at [facility]. TYPE OF STUDY: Multiple CT images of [...] IMAGING STUDY STUDY INITIALLY PERFORMED: 04/26/2025 at [facility]. TYPE OF STUDY: Multiple CT images of [...] images may or may not represent the [place] source data set and thus may contain changes that may lower the accuracy of this second-opinion interpretation. Electronically signed by: Adele Shipman M.D. Lukas Adams MD IMG CT PROCEDURES Final Resu lt * CT Body Outside Reference (05/02/2025 10:17 AM CDT) Impressions [facility] - 05/02/2025 10:17 AM CDT These images are for Reference purposes only and have not been reviewed by [facility] Radiology. There will be no report generated by a [facility] Radiologist. Narrative [facility] - 05/02/2025 10:17 AM CDT EXAMINATION: Images For Reference Purposes Only Lukas Adams MD IMG CT PROCEDURES Final Resu lt [facility] from Last 3 Months Insurance [facility] MEDICARE ADVANTAGE [facility] MEDICARE ADVANTAGE [facility] MEDICARE ADVANTAGE Care Teams Domestic Maid Relationship Specialty Start Date End Date Naveed Mcintosh MD [address] [place] [address] PCP - General Family Medicine 10/07/19
--- OUTSIDE RECORDS SUMMARY | 2025-05-30 11:05 | XMS_ITS | Encounter Summary ---
Author Organization [facility] Address [address] [place] [address] Phone Care Team Providers Care Travel Consultant Name Role Phone Naveed Mcintosh MD Primary Care Prov ider Encounter Details Date Type Department Care Team (Late st Contact Info) Description 05/30/2025 Telephone [facility] Infectious Diseases [address] [place] [phone] Enma Tate RMA Social History Tobacco Use Types Packs/Day Years Used Date Smoking Tobacco: Former Cigarettes 1.5 64 0 03/12/1957 - 09/19/2018 Smokeless Tobacco: Never Comments:Quit 08/2019 Alcohol Use Standard Drinks/Week Comments Not Currently 0 (1 standard drink = 0.6 oz pur e alcohol) Sex and Gender Information Value Date Recorded Sex Assigned at Not on file Legal 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 He spoke to his coal trammer who recommended he go to the ER for evaluation. Advised to follow coal trammer. Pt will go to [facility] * Telephone Encounter - Enma Tate RMA - 05/30/2025 8:22 AM CDT Pt wants to go to the ER for sob, his o2 is 82%, hx of COPD. He wants to speak w/ the nurse. Pleasecall [phone] documented in this encounter Plan of Treatment Not on file documented as of this encounter Visit Diagnoses Not on filedocumented in this encounter Care Teams Travel Consultant Relationship Specialty Start Date End Date Naveed Mcintosh MD [address] [place] [address] PCP - General Family Medicine 10/07/19 documented as of this encounter
--- NOTE | 2025-05-30 11:07 | ECG_ITS ---
Test Date: 2025-05-30 11:23:49 Measurements Intervals [place] Rate: 76 P: 31 VA: 194 QRS: 0 QRSD: 113 T: 14 QT: 398 QTc: 449 Interpretive Statements SINUS RHYTHM POSSIBLE LEFT ATRIAL ENLARGEMENT [-0.1mV P-WAVE IN V1/V2] INCOMPLETE RIGHT BUNDLE BRANCH BLOCK [90+ ms QRS DURATION, TERMINAL R IN V1/V2, 40+ ms S IN I/aVL/V4/V5/V6] ABNORMAL ECG Compared to ECG 05/12/2025 13:01:01 First degree AV block no longer present Electronically Signed On 05-31-2025 07:31:53 CDT by Salas Clemons M.D.
[2025-05-30 11:32] LABS: Hematocrit 28.7 % (42.0-52.0); Hemoglobin 8.5 g/dL (14.0-18.0); Immature Granulocyte Percent A 0.8 % (0-0.5); Lymphocytes Absolute Auto 0.80 K/mm3 (0.9-3.2); Mean Corpuscular HGB Conc 29.6 g/dl (32-36); Mean Corpuscular Hemoglobin 28.6 pg (26-34); Mean Corpuscular Volume 96.6 fl (80-100); Nucleated Red Blood Cells Absolute Auto 0.000 K/mm3 (0.0-0.012); Nucleated Red Blood Cells Perc 0.0 % (0.0-0.2); Platelet Count Result 216 k/mm3 (150-375); Red Blood Count 2.97 M/mm3 (4.6-6.20); White Blood Count 11.8 K/mm3 (4.5-10.0)
[2025-05-30 11:45] LABS: Alanine Aminotransferase 18 U/L (6-50); Albumin Level 3.4 g/dL (3.5-5.1); Alkaline Phosphatase 224 U/L (38-126); Anion Gap 9 mmol/L (4-12); Aspartate Amino Transferase 28 U/L (17-59); Bilirubin,Total 0.3 mg/dL (0.2-1.3); Blood Urea Nitrogen 21 mg/dL (9-20); Calcium 9.1 mg/dL (8.4-10.2); Carbon Dioxide 26 mmol/L (22-30); Chloride 104 mmol/L (98-107); Estimated CRCL calculation 49 ml/min; Estimated Glomerular Filt Rate > 60; Glucose 112 mg/dL (65-110); Potassium 4.3 mmol/L (3.4-5.0); Sodium 139 mmol/L (137-145); Total Protein 7.0 g/dL (6.3-8.2)
[2025-05-30 12:10] LABS: Hypochromasia 1+; Schistocytes None Seen
--- OUTSIDE RECORDS SUMMARY | 2025-05-30 12:26 | XMS_ITS | Clinical Summary ---
Author Organization [employer] [id number] [facility] Address [address] [place] [address] Care Team Providers Care Employee Operations Examiner Name Role Phone Naveed Mcintosh MD Primary Care Provider [phone] Allergies No known active allergies Medications meloxicam [...] Take 1 Tablet by mouth daily. Active [id number] -Fish Oil (FISH OIL) 1,000 mg (120 [...] series) 2019 INFLUENZA VACCINE (#1) [address] [facility] [id number] Care Teams Employee Operations Examiner Relationship Specialty Start Date End Date Naveed Mcintosh MD PCP - General Family Practice 05/18/19
--- OUTSIDE RECORDS SUMMARY | 2025-05-30 12:26 | XMS_ITS | Clinical Summary ---
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 10/28/2019 Ischemic cardiomyopathy 10/28/2019 Spinal stenosis 09/26/2015 Pain of right lower extremity 09/26/2015 Notalgia 09/25/2015 Encounters Date Type Department Care Team Description 05/30/2025 Telephone [facility] Infectious Diseases [address] [place] [phone] Alyssa Chen 05/30/2025 Telephone [facility] Infectious Diseases [address] [place] [address] [phone] Enma Tate RMA 05/04/2025 Telephone [facility] Infectious Diseases [address] [place] [address] [phone] Kaylin Horvath CMA 05/04/2025 Telephone [facility] Infectious Diseases [address] [place] [address] [phone] Daniella Leach 05/02/2025 1:22 PM CDT - 05/02/2025 11:59 PM CDT Hospital Encounter [facility] [address] [place] [address] Discharge Disposition: Discharge to home or self care 05/02/2025 10:24 AM CDT - 05/02/2025 11:59 PM CDT Hospital Encounter [facility] [address] [place] [address] Diagnosis unknown Discharge Disposition: Discharge to home or self care 05/02/2025 10:17 AM CDT - 05/02/2025 11:59 PM CDT Hospital Encounter [facility]) [address] [place] [address] Discharge Disposition: Discharge to home or self care 05/02/2025 8:40 AM CDT Office Visit [facility] Infectious Diseases [address] [facility] [address] [place] [phone] Gladys Larson NP Mycobacterial infection, unspecified 04/25/2025 Documentation Internal Medicine Gladys Toure MD Transfer Notification 03/27/2025 Telephone [facility] Infectious Diseases [address] [place] [phone] [facility], Daniela TANIA Rothman from Last 3 Months [...] on file Legal 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 Gender Identity Male 11/26/2019 3:10 PM SURTASS ANALYST Sexual Orientation Not on file Obstetrics History Last Filed Vital Signs Vital Sign Reading Time Taken Comments Blood Pressure 90/51 05/02/2025 9:28 AM CDT Pulse 66 05/02/2025 9:13 AM CDT Temperature - - Respiratory Rate - - Oxygen Saturation 96% 05/02/2025 9:21 AM CDT Inhaled Oxygen Concentration - - Weight 85.3 kg (188 lb) 01/04/2025 11:39 AM SURTASS ANALYST Height 180.3 cm (5' 10.98) 05/02/2025 9:13 AM C DT Body Mass Index 26.22 01/04/2025 11:39 AM SURTASS ANALYST Plan of Treatment Health Maintenance Due Date [...] NP LAB BLOOD ORDERABLES F inal Result [facility] Department [place] [address] * (ABNORMAL) eGFR (05/02/2025 10:25 AM CDT) [...] NP LAB BLOOD ORDERABLES F inal Result [facility] Department [place] [address] * (ABNORMAL) Differential, auto (05/02/2025 10:25 AM CDT) Neutrophil abs 6.97(H) 1.50 - 6.50 K/cumm Imm gran abs 0.13(H) 0.00 - 0.10 K/cumm [facility] Lymphocyte abs 1.24 0.80 - 3.30 K/cumm [facility] Monocyte abs 0.99(H) 0.20 - 0.80 K/cumm [facility] Eosinophil abs 0.52(H) 0.00 - 0.50 K/cumm [facility] Basophil abs 0.04 0.00 - 0.10 K/cumm [facility] Neutrophil pct 70.5 % [facility] Comment: Interpretive Data Percent cell count reference ranges are not reported, since discordance with absolute values may lead to misinterpretation of CBC data. Current Interpretive Data was last revised on 2018. Imm gran pct 1.3 % [facility] Comment: Interpretive Data Percent cell count reference ranges are not reported, since discordance with absolute values may lead to misinterpretation of CBC data. Current Interpretive Data was last revised on 2018. Lymphocyte pct 12.5 % [facility] Comment: Interpretive Data Percent cell count reference ranges are not reported, since discordance with absolute values may lead to misinterpretation of CBC data. Current Interpretive Data was last revised on 2018. Monocyte pct 10.0 % [facility] Comment: Interpretive Data Percent cell count reference ranges are not reported, since discordance with absolute values may lead to misinterpretation of CBC data. Current Interpretive Data was last revised on 2018. Eosinophil pct 5.3 % [facility] Comment: Interpretive Data Percent cell count reference ranges are not reported, since discordance with absolute values may lead to misinterpretation of CBC data. Current Interpretive Data was last revised on 2018. Basophil pct 0.4 % [facility] Comment: Interpretive Data Percent cell count reference ranges are not reported, since discordance with absolute values may lead to misinterpretation of CBC data. Current Interpretive Data was last revised on 2018. Blood 05/02/2025 10:2 5 AM CDT 05/02/2025 2:09 PM CDT us Gladys Larson SHIPPER LAB BLOOD ORDERABLES F inal Result [facility] Department [place] [address] * (ABNORMAL) Comprehensive metabolic panel, without glucose (Outreach) (05/02/2025 10:25 AM CDT) Sodium 134(L) 135 - 145 mmol/L Potassium, pl 5.8(H) 3.3 - 4.9 mmol/L [facility] Chloride 100 97 - 110 mmol/L [facility] CO2 27 22 - 32 mmol/L [facility] Anion gap 7 2 - 15 mmol/L [facility] BUN 21 6 - 25 mg/dL [facility] Creatinine 1.90(H) 0.80 - 1.30 mg/dL [facility] Calcium 9.6 8.5 - 10.3 mg/dL [facility] Protein, pl 7.5 6.5 - 8.5 g/dL [facility] Albumin 3.8 3.5 - 5.0 g/dL [facility] Bilirubin, total 0.2 0.1 - 1.2 mg/dL [facility] Alk phos 227(H) 40 - 130 Units/L [facility] AST 25 10 - 50 Units/L [facility] ALT 19 7 - 55 Units/L [facility] Blood 05/02/2025 10:2 5 AM CDT 05/02/2025 2:09 PM CDT us Gladys Larson SHIPPER LAB BLOOD ORDERABLES F inal Result [facility] Department [place] [address] * (ABNORMAL) CBC with auto differential (05/02/2025 10:25 AM CDT) Pathologist [facility] WBC 9.89 3.80 - 9.90 K/cumm Hgb 10.0(L) 13.0 - 17.5 g/dL [facility] Hct 32.2(L) 38.9 - 50.3 % [facility] Plt 322 150 - 400 K/cumm [facility] MPV 11.1 9.1 - 12.3 fL [facility] RBC 3.41(L) 4.30 - 5.80 M/cumm [facility] MCV 94.4 81.3 - 96.4 fL [facility] MCH 29.3 27.1 - 33.3 pg [facility] MCHC 31.1(L) 32.3 - 35.7 g/dL [facility] RDW CV 14.3 11.1 - 14.9 % [facility] RDW SD 48.4(H) 35.7 - 48.1 fL [facility] NRBC abs 0.00 0.00 - 0.01 K/cumm [facility] Blood 05/02/2025 10:2 5 AM CDT 05/02/2025 2:09 PM CDT Gladys Larson NP LAB BLOOD ORDERABLES F inal Result [facility] Department [place] [address] * CT Body Outside Consult (05/02/2025 10:24 [...] images may or may not represent the confederated goshute source data set and thus may contain changes that may lower the accuracy of this second-opinion interpretation. Electronically signed by: Nadege Cruz 05/02/2025 10:38 AM CDT EXAMINATION: RADIOLOGY CONSULTATION ON OUTSIDE IMAGING STUDY STUDY INITIALLY PERFORMED: 04/26/2025 at [facility]. TYPE OF STUDY: Multiple CT images of [...] IMAGING STUDY STUDY INITIALLY PERFORMED: 04/26/2025 at [facility]. TYPE OF STUDY: Multiple CT images of [...] images may or may not represent the confederated goshute source data set and thus may contain changes that may lower the accuracy of this second-opinion interpretation. Electronically signed by: Adele Shipman M.D. Lukas Adams MD IMG CT PROCEDURES Final Resu lt * CT Body Outside Reference (05/02/2025 10:17 AM CDT) Impressions [facility] - 05/02/2025 10:17 AM CDT These images are for Reference purposes only and have not been reviewed by [facility]iology. There will be no report generated by a [facility] Radiologist. Narrative [facility] - 05/02/2025 10:17 AM CDT EXAMINATION: Images For Reference Purposes Only Lukas Adams MD IMG CT PROCEDURES Final Resu lt [facility] from Last 3 Months Insurance [facility] MEDICARE ADVANTAGE [facility] Address: [facility] [address] [place] [address] [facility] MEDICARE ADVANTAGE [facility] Address: [address] [phone] [facility] MEDICARE ADVANTAGE [facility] Address: [id number] [place] [address] Care Teams Baby Nurse Relationship Specialty Start Date End Date Naveed Mcintosh MD [address] [place] [address] PCP - General Family Medicine 10/07/19
--- OUTSIDE RECORDS SUMMARY | 2025-05-30 12:26 | XMS_ITS | Referral Summary ---
Author Organization [facility] [address] Address [address] [place] [address] Care Team Providers Care Chopper Gun Operator Name Role Phone Naveed Mcintosh MD Primary Care Prov ider Encounters Date Type Department Care Team Description 05/30/2025 Telephone [facility] Infectious Diseases [address] [place] [address] [phone] Alyssa Chen 05/30/2025 Telephone [facility] Infectious Diseases [address] [place] [phone] Enma Tate RMA 05/04/2025 Telephone [facility] Infectious Diseases [address] [place] [phone] Kaylin Horvath, TANIA 05/04/2025 Telephone [facility] Infectious Diseases [address] [place] [phone] Daniella Leach 05/02/2025 1:22 PM CDT - 05/02/2025 11:59 PM CDT Hospital Encounter [facility] [address] [place] [address] Discharge Disposition: Discharge to home or self care 05/02/2025 10:24 AM CDT - 05/02/2025 11:59 PM CDT Hospital Encounter [facility] [address] [place] [address] Diagnosis unknown Discharge Disposition: Discharge to home or self care 05/02/2025 10:17 AM CDT - 05/02/2025 11:59 PM CDT Hospital Encounter [facility] [address] [place] [address] Discharge Disposition: Discharge to home or self care 05/02/2025 8:40 AM CDT Office Visit [facility] Infectious Diseases [address] [place] [phone] Gladys Larson NP Mycobacterial infection, unspecified 04/25/2025 Documentation Internal Medicine Gladys Toure MD Transfer Notification 03/27/2025 Telephone [facility] Infectious Diseases [address] [place] [phone] [facility] from Last 3 Months Allergies Active Allergy [...] 80 mg tabletIndicatio ns:Coronary artery disease involving sleetmute coronary artery of sleetmute heart without angina pectoris TAKE 1 TABLET [...] 25 mg tabletIndicatio ns:Coronary artery disease involving sleetmute coronary artery of sleetmute heart without angina pectoris Take 1 tablet [...] Diagnosed Date Coronary artery disease invo lving sleetmute coronary artery of sleetmute heart without angina pectoris 10/28/2019 Ischemic cardiomyopathy [...] on file Legal Sex Male 9:37 AM LITIGATION ASSOCIATE Gender Identity Male 11/26/2019 3:10 PM LITIGATION ASSOCIATE Sexual Orientation Not on file Last Filed Vital Signs Vital Sign Reading Time Taken Comments Blood Pressure 90/51 05/02/2025 9:28 AM CDT Pulse 66 05/02/2025 9:13 AM CDT Temperature - - Respiratory Rate - - Oxygen Saturation 96% 05/02/2025 9:21 AM CDT Inhaled Oxygen Concentration - - Weight 85.3 kg (188 lb) 01/04/2025 11:39 AM LITIGATION ASSOCIATE Height 180.3 cm (5' 10.98) 05/02/2025 9:13 AM C DT Body Mass Index 26.22 01/04/2025 11:39 AM LITIGATION ASSOCIATE Plan of Treatment Not on file Procedures [...] LAB BLOOD ORDERABLES F inal Result [facility] Department [place] [address] * (ABNORMAL) eGFR (05/02/2025 10:25 AM CDT) [...] inal Result [facility] [place] [address] * (ABNORMAL) Differential, auto (05/02/2025 10:25 AM CDT) Pathologist [facility] Neutrophil abs 6.97(H) 1.50 - 6.50 K/cumm Imm gran abs 0.13(H) 0.00 - 0.10 K/cumm [facility] Lymphocyte abs 1.24 0.80 - 3.30 K/cumm [facility] Monocyte abs 0.99(H) 0.20 - 0.80 K/cumm [facility] Eosinophil abs 0.52(H) 0.00 - 0.50 K/cumm [facility] Basophil abs 0.04 0.00 - 0.10 K/cumm [facility] Neutrophil pct 70.5 % [facility] Comment: Interpretive Data Percent cell count reference ranges are not reported, since discordance with absolute values may lead to misinterpretation of CBC data. Current Interpretive Data was last revised on 2018. Imm gran pct 1.3 % [facility] Comment: Interpretive Data Percent cell count reference ranges are not reported, since discordance with absolute values may lead to misinterpretation of CBC data. Current Interpretive Data was last revised on 2018. Lymphocyte pct 12.5 % [facility] Comment: Interpretive Data Percent cell count reference ranges are not reported, since discordance with absolute values may lead to misinterpretation of CBC data. Current Interpretive Data was last revised on 2018. Monocyte pct 10.0 % [facility] Comment: Interpretive Data Percent cell count reference ranges are not reported, since discordance with absolute values may lead to misinterpretation of CBC data. Current Interpretive Data was last revised on 2018. Eosinophil pct 5.3 % [facility] Comment: Interpretive Data Percent cell count reference ranges are not reported, since discordance with absolute values may lead to misinterpretation of CBC data. Current Interpretive Data was last revised on 2018. Basophil pct 0.4 % [facility] Comment: Interpretive Data Percent cell count reference ranges are not reported, since discordance with absolute values may lead to misinterpretation of CBC data. Current Interpretive Data was last revised on 2018. Blood 05/02/2025 10:2 5 AM CDT 05/02/2025 2:09 PM CDT Gladys Larson NP LAB BLOOD ORDERABLES F inal Result [facility] [place] [address] * (ABNORMAL) Comprehensive metabolic panel, without glucose [...] inal Result [facility] [place] [address] * (ABNORMAL) CBC with auto differential (05/02/2025 10:25 AM CDT) [facility] WBC 9.89 3.80 - 9.90 K/cumm Hgb [...] F inal Result [facility] [place] [address] * CT Body Outside Consult (05/02/2025 10:24 [...] images may or may not represent the sleetmute source data set and thus may contain changes that may lower the accuracy of this second-opinion interpretation. Electronically signed by: Adele Shipman M.D. Narrative 05/02/2025 10:38 AM CDT EXAMINATION: RADIOLOGY CONSULTATION ON OUTSIDE IMAGING STUDY STUDY INITIALLY PERFORMED: 04/26/2025 at [facility]. TYPE OF STUDY: Multiple CT [...] IMAGING STUDY STUDY INITIALLY PERFORMED: 04/26/2025 at [facility]. TYPE OF STUDY: Multiple CT [...] images may or may not represent the sleetmute source data set and thus may contain changes that may lower the accuracy of this second-opinion interpretation. Electronically signed by: Adele Shipman M.D. Lukas Adams MD IM CT PROCEDURES Final Resu lt * CT Body Outside Reference (05/02/2025 10:17 AM CDT) Impressions [facility] - 05/02/2025 10:17 AM CDT These images are for Reference purposes only and have not been reviewed by [facility] Radiology. There will be no report generated by a [facility] Radiologist. Narrative [facility] - 05/02/2025 10:17 AM CDT EXAMINATION: Images For Reference Purposes Only Lukas Adams MD IM CT PROCEDURES Final Resu lt [facility] from Last 3 Months Insurance [facility] MEDICARE ADVANTAGE [facility] Address: [address] [place] [address] [facility] Address: [address] [place] [phone] MEDICARE ADVANTAGE [facility] MEDICARE Address: [address] [phone] Care Teams Chopper Gun Operator Relationship Specialty Start Date End Date Naveed Mcintosh MD [address] [place] [address] PCP - General Family Medicine 10/07/19
--- OUTSIDE RECORDS SUMMARY | 2025-05-30 12:26 | XMS_ITS | Encounter Summary ---
Author Organization [facility] Address [address] [place] [address] Phone Care Team Providers Care Hot Tamale Man Name Role Phone Naveed Mcintosh MD Primary Care Prov ider Encounter Details Date Type Department Care Team (Late st Contact Info) Description 05/30/2025 Telephone [facility] Infectious Diseases [address] [place] [phone] Alyssa Chen Social History Tobacco Use Types Packs/Day Years Used Date Smoking Tobacco: Former Cigarettes 1.5 65 0 03/12/1957 - 09/19/2018 Smokeless Tobacco: Never Comments:Quit 08/2019 Alcohol Use Standard Drinks/Week Comments Not Currently 0 (1 standard drink = 0.6 oz pur e alcohol) Sex and Gender Information Value Date Recorded Sex Assigned at Not on file Legal Sex Male 9:37 AM CLIENT REPORTING ASSOCIATE Gender Identity Male 11/26/2019 3:10 PM CLIENT REPORTING ASSOCIATE Sexual Orientation Not on file documented as of this encounter Miscellaneous Notes * Telephone Encounter - Daniella Leach - 05/30/2025 9:06 AM CDT Duplicate call, spoke with pt. * Telephone Encounter - Alyssa Chen - 05/30/2025 8:42 AM CDT Patient calling back, received missed call P: [phone] documented in this encounter Plan of Treatment Not on file documented as of this encounter Visit Diagnoses Not on filedocumented in this encounter Care Teams Hot Tamale Man Relationship Specialty Start Date End Date Naveed Mcintosh MD [address] [place] [address] PCP - General Family Medicine 10/07/19 documented as of this encounter
--- OUTSIDE RECORDS SUMMARY | 2025-05-30 12:26 | XMS_ITS | Encounter Summary ---
Author Organization [facility] Address [address] [place] [address] Phone Care Team Providers Care Relief Man Name Role Phone Naveed Mcintosh MD Primary Care Prov ider Encounter Details Date Type Department Care Team (Late st Contact Info) Description 05/30/2025 Telephone [facility] Infectious Diseases [address] [place] [phone] Enma Tate RMA Social History Tobacco Use Types Packs/Day Years Used Date Smoking Tobacco: Former Cigarettes 1.5 65 0 03/12/1957 - 09/19/2018 Smokeless Tobacco: Never Comments:Quit 08/2019 Alcohol Use Standard Drinks/Week Comments Not Currently 0 (1 standard drink = 0.6 oz pur e alcohol) Sex and Gender Information Value Date Recorded Sex Assigned at Not on file Legal Sex Male 9:37 AM HEALTHCARE CONSULTANT Gender Identity Male 11/26/2019 3:10 PM HEALTHCARE CONSULTANT Sexual Orientation Not on file documented as of this encounter Miscellaneous Notes * Telephone Encounter - Daniella Leach - 05/30/2025 8:58 AM CDT Spoke with pt, stated his O2 sats drop when he walks to the bathroom at night. He spoke to his dipper fish who recommended he go to the ER for evaluation. Advised to follow dipper fish. Pt will go to [facility] * Telephone Encounter - Enma Tate RMA - 05/30/2025 8:22 AM CDT Pt wants to go to the ER for sob, his o2 is 82%, hx of COPD. He wants to speak w/ the nurse. Pleasecall [phone] documented in this encounter Plan of Treatment Not on file documented as of this encounter Visit Diagnoses Not on filedocumented in this encounter Care Teams Relief Man Relationship Specialty Start Date End Date Naveed Mcintosh MD [address] [place] [address] PCP - General Family Medicine 10/07/19 documented as of this encounter
--- NOTE | 2025-05-30 13:07 | ED.GENADULT ---
HPI - General Adult General Chief complaint: Shortness of Breath/Dyspnea Stated complaint: SOB Time Seen by Provider: 05/30/25 11:57 History of Present Illness HPI narrative: 80-year-old male with history of COPD, mycobacterium avarium intracellulare in 2024, O2 requirement of 4 5 L at all times the emergency department for evaluation for worsening exertional shortness of breath. Patient states he has been on antibiotics for approximately last 10 days, Levaquin. Patient feels even that time his exertional shortness of breath continues to worsen. On 04/25 patient was admitted to our hospital and evaluated by pulmonology. 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 At that time patient was started on Rocephin, azithromycin and Septra. During that admission they did avoid oral steroids but was on DuoNebs q.6. Patient was admitted on 04/25 and discharged on 04/28 to home After being discharged patient did have follow-up sometime in April with [facility] infectious disease but does not know the results of that consult. Patient reports he is scheduled to see them again in July. Related Data Home Medications ?Medication ?Instructions ?Recorded ?Confirmed ?Last Taken ?Type acetaminophen 500 mg tablet 1,000 mg PO Q6H PRN Pain 03/18/23 05/30/25 05/30/25 History (Tylenol Extra Strength) multivitamin 1 tablet PO DAILY 03/18/23 05/30/25 05/30/25 History cetirizine 10 mg capsule (Zyrtec) 10 mg PO DAILY PRN allergies 06/13/23 05/30/25 05/30/25 History simethicone 125 mg capsule (Gas-X 125 mg PO PRN 11/21/24 05/30/25 Unknown History Extra Strength) baclofen 10 mg tablet 10 mg PO Q12H PRN muscle spasm 12/02/24 05/30/25 05/30/25 History Allergies Allergy/AdvReac Type Severity Reaction Status Date / Time clonazepam AdvReac Severe Drowsy Verified 05/30/25 19:29 roflumilast (From Daliresp) AdvReac Severe Diarrhea Verified 05/30/25 19:29 Review of Systems Review of Systems: All systems reviewed & are unremarkable except as noted in HPI and below [facility] Past Medical History Medical History (Updated 05/30/25 @ 21:37 by Safia Almaguer DO) Heart failure with mildly reduced ejection fraction Chronic pulmonary aspergillosis Major depressive disorder, recurrent, mild Left foot drop Chronic kidney disease, stage 3 Spinal stenosis, lumbar region without neurogenic claudication Ischemic cardiomyopathy Echocardiogram 09/2021: Mildly reduced left ventricular systolic function EF of 45-50%, grade 1 diastolic dysfunction, inferior wall inferior septal wall basal inferior wall and mid inferior lateral wall hypokinesis with mild left atrial and large SVT (supraventricular tachycardia) 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 Abdominal aortic aneurysm, without rupture Seen on CT scan on 02/09/2018 Restless legs syndrome Surgical History Surgical History History of tonsillectomy and adenoidectomy History of repair of rotator cuff bilateral History of colonoscopy with polypectomy History of bowel resection due to obstruction Presence of coronary angioplasty implant and graft History of coronary artery stent placement X2 History of mandibular surgery (1986) reconstructive surgery right mandible related to cancer Family History Family History Mother Diabetes mellitus Acute myocardial infarction Father Colon cancer COPD (chronic obstructive pulmonary disease) Sibling Colon cancer Acute myocardial infarction Lung cancer COPD (chronic obstructive pulmonary disease) Sibling COPD (chronic obstructive pulmonary disease) Sibling Congestive heart failure Sibling Dementia Social History Social History (Updated 05/30/25 @ 21:33 by Safia Almaguer DO) Social History: Surrogate medical decision maker: Yessi Morgan, daughter. Code status: Full code. Smoking packs per day: 1.5 Smoking cigarettes per day: 30.0 Years smoked: 50 Smoking pack-years: 75.00 Smoking status: Former smoker Tobacco type: cigarettes Second hand tobacco smoke exposure: No Alcohol intake: never Substance use: never Substance use type: does not use Other substance usage details: quit alcohol in 2010 Last use: Last alcohol use 2010 Do You Feel Safe in your Home?: Yes Lack of Transportation: No Lack of Food: Never True Current Housing: I Have Housing Concerned About Future Housing: No Difficulty Paying Gas/Electric Bills: No Difficulty Paying for Meds: No Currently Unemployed: No Education: High School Diploma/GED Difficulty w/ Childcare or Family Care: No Living arrangements: with family Additional living arrangements comments: . Lives in [place] with son and [id number]. 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 EYES: PERRLA/EOMI, conjunctivae clear. NOSE: Normal no drainage EARS:TMS clear with good light reflex. THROAT: Pharynx clear, no exudate. NECK: Supple. No adenopathy, no masses. RESPIRATORY: Expiratory CARDIOVASCULAR: Regular rate and rhythm without murmurs rubs or gallops. ABDOMINAL: Soft, nontender, nondistended, normal bowel sounds MUSCULOSKELETAL: Moves all extremities. Strength/ROM intact, No edema, No calf tenderness. NEURO: Alert. Cranial nerves II through XII intact. Grossly intact SKIN: Warm, dry. Normal Color Course Vital Signs Vital signs: Vital Signs Pulse Rate 86 05/30/25 11:07 Respiratory Rate 20 05/30/25 11:07 Pulse Oximetry 96 05/30/25 11:07 Oxygen Delivery Nasal Cannula 05/30/25 11:07 Oxygen Flow Rate 4 05/30/25 11:07 Temperature 98.1 F 05/30/25 11:31 Pulse Rate 79 05/30/25 20:41 Respiratory Rate 18 05/30/25 20:41 Blood Pressure 112/47 L 05/30/25 17:31 Pulse Oximetry 96 05/30/25 20:44 Oxygen Delivery Nasal Cannula 05/30/25 20:44 Oxygen Flow Rate 4 05/30/25 20:44 Medical Decision Making MDM Narrative Medical decision making narrative: 80-year-old male with history of atypical mycobacterium presented emergency department for evaluation for recurrent pneumonia. And has had extensive follow-up for this including with our end worker and with [facility] infectious disease. Patient does have a new O2 requirement today, elevated leukocytosis and chest x-ray concerning for pneumonia. Patient was started antibiotics and blood cultures were ordered. I did consult Dr. Gottlieb and he did recommend attempting to get transferred to [facility]/[place] due to the patient are to being established with Infectious Disease at that institution and the ability to potentially treat his pneumonia more effectively. I did discuss the case with the hospitalist at [place] and patient was accepted by Dr Paredes. Transfer services felt that it would be approximately 1 week until a bed was available. Patient was started on Rocephin, azithromycin and IV Septra in the emergency department. Blood cultures were ordered. Dr. Gottlieb was consulted. Differential Diagnosis Differential Diagnosis: COPD, pneumonia, atypical pneumonia, COVID, RSV, influenza Vital Signs Vital Signs: Vital Signs Pulse Rate 86 05/30/25 11:07 Respiratory Rate 20 05/30/25 11:07 Pulse Oximetry 96 05/30/25 11:07 Oxygen Delivery Nasal Cannula 05/30/25 11:07 Oxygen Flow Rate 4 05/30/25 11:07 Temperature 98.1 F 05/30/25 11:31 Pulse Rate 79 05/30/25 20:41 Respiratory Rate 18 05/30/25 20:41 Blood Pressure 112/47 L 05/30/25 17:31 Pulse Oximetry 96 05/30/25 20:44 Oxygen Delivery Nasal Cannula 05/30/25 20:44 Oxygen Flow Rate 4 05/30/25 20:44 Lab Data Lab results reviewed: Yes I reviewed the patient's lab results. 05/30/25 11:26 05/30/25 11:26 Labs: Lab Results 05/30/25 05/30/25 Range/Units 11:26 14:05 WBC 11.8 H (4.5-10.0) K/mm3 RBC 2.97 L (4.6-6.20) M/mm3 Hgb 8.5 L (14.0-18.0) g/dL Hct 28.7 L (42.0-52.0) % MCV 96.6 (80-100) fl MCH 28.6 (26-34) pg MCHC 29.6 L (32-36) g/dl RDW 14.9 H (11.5-14.5) % Plt Count 216 (150-375) k/mm3 MPV 9.7 (7.4-10.4) fl Immature Gran % (Auto) 0.8 H (0-0.5) % Neut % (Auto) 83.6 H (45.5-73.1) % Lymph % (Auto) 6.8 L (18.3-44.2) % [place] % (Auto) 8.0 (2.6-8.5) % Eos % (Auto) 0.6 (0-4.4) % Baso % (Auto) 0.2 (0.2-1.2) % Lymph # (Auto) 0.80 L (0.9-3.2) K/mm3 [place] # (Auto) 1.0 H (0.1-0.6) K/mm3 Eos # (Auto) 0.1 (0-0.3) K/mm3 Baso # (Auto) 0.0 (0.0-0.1) K/mm3 Abs Immat Gran (auto) 0.10 H (0.00-0.031) K/mm3 Absolute Neuts (auto) 9.9 H (1.3-6.7) K/mm3 Absolute Nucleated RBC 0.000 (0.0-0.012) K/mm3 Band Neutrophils % Not Reportable Nucleated RBC % 0.0 (0.0-0.2) % Platelet Estimate Adequate (Adequate) Hypochromasia 1+ Schistocytes None seen Sodium 139 (137-145) mmol/L Potassium 4.3 (3.4-5.0) mmol/L Chloride 104 (98-107) mmol/L Carbon Dioxide 26 (22-30) mmol/L Anion Gap 9 (4-12) mmol/L BUN 21 H (9-20) mg/dL Creatinine 1.13 (0.7-1.3) mg/dL Estim Creat Clear Calc 49 ml/min Estimated GFR > 60 (59 - ) Glucose 112 H (65-110) mg/dL Calcium 9.1 (8.4-10.2) mg/dL Total Bilirubin 0.3 (0.2-1.3) mg/dL AST 28 (17-59) U/L ALT 18 (6-50) U/L Alkaline Phosphatase 224 H (38-126) U/L Total Protein 7.0 (6.3-8.2) g/dL Albumin 3.4 L (3.5-5.1) g/dL Influenza A (RT-PCR) Negative (Negative) Influenza B (RT-PCR) Negative (Negative) RSV (RT-PCR) Negative (Negative) SARS-CoV-2 RNA (RT-PCR) Negative (Negative) Imaging Data Radiologist's impression: Impressions Chest X-Ray 05/30/25 13:09 Impression: Probable mild pulmonary edema, worse in the right lung than left, versus possibly pneumonia. Correlate clinically. Small right pleural effusion. Critical Care Time Critical Care Time Critical Care Time: Yes Total Critical Care Time: 35 Discharge Plan Discharge Clinical Impression: Pneumonia Qualifiers: Pneumonia type: due to unspecified organism Laterality: right Lung location: unspecified part of lung Qualified Code(s): J18.9 - Pneumonia, unspecified organism Patient Disposition: Acute Care Hospital Condition: Stable
[2025-05-30] MEDS: ALBUTEROL SULFATE NEB 2.5 MG/3 ML INH 5 MG INHALATION (13:10)
[2025-05-30] MEDS: cefTRIAXone 1 GM in SODIUM CHLORIDE 0.9% IV 50 ML 100 ML IVPB ×2 (14:11→21:45)
[2025-05-30 14:56] LABS: Influenza A QL RT-PCR Negative (Negative); Influenza B QL RT-PCR Negative (Negative); RSV RNA, RT-PCR Negative (Negative); SARS-CoV-2 RNA PCR Negative (Negative)
[2025-05-30] MEDS: AZITHROMYCIN IV 500 MG in SODIUM CHLORIDE 0.9% IV 250 ML IVPB (14:59)
[2025-05-30] MEDS: DEXTROSE IVPB ×2 (16:42→23:46)
[2025-05-30] MEDS: TRIMETHOPRIM IVPB ×2 (16:42→23:46)
[2025-05-30] MEDS: WATER IVPB ×2 (16:42→23:46)
[2025-05-30] MEDS: SULFAMETHOXAZOLE IVPB ×2 (16:42→23:46)
--- NOTE | 2025-05-30 19:20 | ADMGEN ---
This patient, Russell Morse, was admitted to Medical Room 345-01. Patient/family oriented to hospital policies and general routines including ID bracelet, bed and alarms, visiting hours, pain management, procedures, bathroom and other care routines, personal items, smoking policy, room service/diet, and visiting hours. Information on how to activate the Rapid Response Team has been discussed. Patient/Family are encouraged to report perceived risks to care and to ask questions if they do not understand what they are told or what they should do.
[2025-05-30] MEDS: ALBUTEROL SULFATE NEB 2.5 MG/3 ML INH INHALATION (20:40)
[2025-05-30] MEDS: ACETAMINOPHEN 500 MG TABLET 1000 MG PO (21:45)
[2025-05-30] MEDS: METOPROLOL SUCCINATE EXT REL 50 MG TABCR PO (21:45)
[2025-05-30] MEDS: guaiFENesin 12 HR 600 MG TABCR 1200 MG PO (21:45)
[2025-05-30] MEDS: FUROSEMIDE INJ 40 MG/4 ML VIAL IV PUSH (21:45)
[2025-05-30] MEDS: TAMSULOSIN HCL 0.4 MG CAPSULE PO (21:45)
[2025-05-30] MEDS: TOBRAMYCIN/DEXAMETHASONE OP 2.5 ML BTL 1 DROP EACH EYE (21:54)
[2025-05-30] MEDS: ACYCLOVIR 400 MG TABLET PO (21:54)
[2025-05-30] MEDS: buPROPion HCL SR (12 HR) 150 MG TAB PO (21:54)
--- NOTE | 2025-05-30 23:50 | PM.IMHP ---
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 The patient had been hospitalized 04/25/2025 through-04/28/2025 for pneumonia. He had extensive evaluation by pulmonology. His extended respiratory viral panel did come back for human metapneumovirus, AFB cultures are pending was discharged home to complete antibiotic therapy with cefdinir and azithromycin which were completed on the . He had follow-up with Infectious Disease at [facility]. He then returned to the ER on the due to recurrent symptoms and received prescriptions for Bactrim for 7 days but was discharged home. He followed up with his primary care provider on the and had a script called in for Levaquin for 7 days. He finished the Levaquin today and states he feels better as far as cough but has had increased exertional dyspnea. He reports that his sputum production is stable and his usual color. He reports that if even walks 10 ft his oxygen saturations have been dropping down to 79%. He has continued his home oxygen and has not increased his oxygen levels. He takes several minutes to recover when he desats. He denies any chest pain. He denies any increased lower extremity swelling. His abdomen is slightly distended but he states this is baseline. He denies any orthopnea or paroxysmal nocturnal dyspnea. Review of Systems Review of Systems: 12 systems were reviewed with pertinent positives and negatives per HPI. Except as documented in the HPI, all other systems were reviewed and are negative. [facility] Past Medical History Medical History (Updated 05/30/25 @ 21:37 by Safia Almaguer DO) Heart failure with mildly reduced ejection fraction Chronic pulmonary aspergillosis Major depressive disorder, recurrent, mild Left foot drop Chronic kidney disease, stage 3 Spinal stenosis, lumbar region without neurogenic claudication Ischemic cardiomyopathy Echocardiogram 09/2021: Mildly reduced left ventricular systolic function EF of 45-50%, grade 1 diastolic dysfunction, inferior wall inferior septal wall basal inferior wall and mid inferior lateral wall hypokinesis with mild left atrial and large SVT (supraventricular tachycardia) 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 History of tobacco use Polio (1951) Other chronic pain Aortic stenosis Mild - Echo 05/15/2022 NSTEMI (non-ST elevated myocardial infarction) (08/2019) Atherosclerotic heart disease of [place] coronary artery without angina pectoris Abdominal aortic aneurysm, without rupture Seen on CT scan on 02/09/2018 Restless legs syndrome Surgical History Surgical History History of tonsillectomy and adenoidectomy History of repair of rotator cuff bilateral History of colonoscopy with polypectomy History of bowel resection due to obstruction Presence of coronary angioplasty implant and graft History of coronary artery stent placement X2 History of mandibular surgery (1986) reconstructive surgery right mandible related to cancer Family History Family History Mother Diabetes mellitus Acute myocardial infarction Father Colon cancer COPD (chronic obstructive pulmonary disease) Sibling Colon cancer Acute myocardial infarction Lung cancer COPD (chronic obstructive pulmonary disease) Sibling COPD (chronic obstructive pulmonary disease) Sibling Congestive heart failure Sibling Dementia Social History Social History (Updated 05/31/25 @ 03:25 by Safia Almaguer DO) Social History: Surrogate medical decision maker: Yessi Morgan, daughter. Code status: Full code. But he states he would not want to be on a ventilator long-term have a tracheostomy or feeding tube. Smoking packs per day: 1.5 Smoking cigarettes per day: 30.0 Years smoked: 50 Smoking pack-years: 75.00 Smoking status: Former smoker Tobacco type: cigarettes Second hand tobacco smoke exposure: No Alcohol intake: never Substance use: never Substance use type: does not use Other substance usage details: quit alcohol in 2010 Last use: Last alcohol use 2010 Do You Feel Safe in your Home?: Yes Lack of Transportation: No Lack of Food: Never True Current Housing: I Have Housing Concerned About Future Housing: No Difficulty Paying Gas/Electric Bills: No Difficulty Paying for Meds: No Currently Unemployed: No Education: High School Diploma/GED Difficulty w/ Childcare or Family Care: No Living arrangements: with family Additional living arrangements comments: . Lives in [place] with son and [id number]. 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 Spiritual care concerns: No Agree to blood products: Yes Meds Home Medications and Allergies Home Medications ?Medication ?Instructions ?Recorded ?Confirmed ?Type acetaminophen 500 mg tablet 1,000 mg PO Q6H PRN Pain 03/18/23 05/30/25 History (Tylenol Extra Strength) multivitamin 1 tablet PO DAILY 03/18/23 05/30/25 History cetirizine 10 mg capsule (Zyrtec) 10 mg PO DAILY PRN allergies 06/13/23 05/30/25 History aspirin 81 mg tablet,delayed 81 mg PO DAILY #90 tabs 06/15/23 05/30/25 Rx release polyethylene glycol 3350 17 gram 17 g PO QAM PRN Constipation #30 ea 06/15/23 05/30/25 Rx oral powder packet (Miralax) fenofibrate 160 mg tablet 160 mg PO DAILY #90 tabs 09/16/23 05/30/25 Rx nebulizer accessories #1 ea 04/12/24 05/30/25 Rx nebulizer and compressor #1 ea 04/12/24 05/30/25 Rx esomeprazole magnesium 20 mg See Rx Instructions .Route 04/28/24 05/30/25 Rx capsule,delayed release .COMPLEX #90 caps linaclotide 290 mcg capsule See Rx Instructions .Route 04/28/24 05/30/25 Rx (Linzess) .COMPLEX #90 caps albuterol sulfate 90 mcg/actuation 2 puff inhalation Q4H PRN 10/03/24 05/30/25 Rx aerosol inhaler Shortness Of Breath Or Wheezing #8.5 grams simethicone 125 mg capsule (Gas-X 125 mg PO PRN 11/21/24 05/30/25 History Extra Strength) baclofen 10 mg tablet 10 mg PO Q12H PRN muscle spasm 12/02/24 05/30/25 History albuterol sulfate 2.5 mg/3 mL 2.5 mg (3 mL) inhalation Q4H PRN 12/08/24 05/30/25 Rx (0.083 %) solution for nebulization shortness of breath or wheezing #90 mL nitroglycerin 0.4 mg sublingual 0.4 mg sublingual Q5M PRN chest 12/08/24 05/30/25 Rx tablet pain #25 tabs bupropion HCl 150 mg tablet,12 hr 150 mg PO BID #180 tabs 12/28/24 05/30/25 Rx sustained-release metoprolol succinate 50 mg 50 mg PO HS #90 tabs 12/29/24 05/30/25 Rx tablet,extended release 24 hr tamsulosin 0.4 mg capsule 0.4 mg PO BID #180 caps 03/20/25 05/30/25 Rx lorazepam 0.5 mg tablet 0.5 mg PO BID PRN anxiety #60 tabs 03/21/25 05/30/25 Rx tobramycin 0.3 %-dexamethasone 0.1 1 drp EACH EYE QID #10 mL 04/05/25 05/30/25 Rx % eye drops,suspension sulindac 200 mg tablet 200 mg PO BID #180 tabs 04/07/25 05/30/25 Rx atorvastatin 80 mg tablet 80 mg PO DAILY #90 tabs 04/11/25 05/30/25 Rx guaifenesin 600 mg tablet, 1,200 mg (2 x 600 mg) PO BID #120 04/14/25 05/30/25 Rx extended release 12 hr tabs sertraline 50 mg tablet 50 mg PO DAILY #90 tabs 04/20/25 05/30/25 Rx benzonatate 200 mg capsule See Rx Instructions .Route 04/26/25 05/30/25 Rx .COMPLEX #90 caps furosemide 20 mg tablet 20 mg PO DAILY #10 tabs 04/28/25 05/30/25 Rx glycopyrrolate 9 mcg-formoterol 2 puff inhalation BID #10.7 grams 04/28/25 05/30/25 Rx 4.8 mcg HFA aerosol inhaler (Bevespi Aerosphere) acyclovir 400 mg tablet 400 mg PO TID #21 tabs 05/03/25 05/30/25 Rx morphine 30 mg tablet,extended 30 mg PO QAM #30 tabs 05/08/25 05/30/25 Rx release hydroxyzine HCl 25 mg tablet 25 mg PO QID PRN anxiety #50 tabs 05/19/25 05/30/25 Rx trazodone 100 mg tablet 100 mg PO HS Insomnia #90 tabs 05/24/25 05/30/25 Rx Allergies Allergy/AdvReac Type Severity Reaction Status Date / Time clonazepam AdvReac Severe Drowsy Verified 05/30/25 19:29 roflumilast (From [facility]) AdvReac Severe Diarrhea Verified 05/30/25 19:29 Vital Signs Vital Signs - 24 hr 05/30/25 11:07 05/30/25 11:19 05/30/25 11:26 Temperature Pulse Rate 86 80 76 Respiratory Rate 20 14 13 Blood Pressure 110/56 L Pulse Oximetry 96 96 Oxygen Delivery Nasal Cannula Oxygen Flow Rate 4 05/30/25 11:30 05/30/25 11:31 05/30/25 11:32 Temperature 98.1 F Pulse Rate 76 76 75 Respiratory Rate 12 12 13 Blood Pressure 112/52 L Pulse Oximetry 97 97 98 Oxygen Delivery Oxygen Flow Rate 05/30/25 11:33 05/30/25 11:33 05/30/25 11:45 Temperature Pulse Rate 74 73 Respiratory Rate 14 13 Blood Pressure 112/52 L Pulse Oximetry 98 98 97 Oxygen Delivery Nasal Cannula Oxygen Flow Rate 4 05/30/25 12:00 05/30/25 12:15 05/30/25 12:16 Temperature Pulse Rate 74 72 73 Respiratory Rate 17 14 15 Blood Pressure 105/50 L Pulse Oximetry 97 97 97 Oxygen Delivery Oxygen Flow Rate 05/30/25 12:30 05/30/25 12:45 05/30/25 12:50 Temperature Pulse Rate 72 Respiratory Rate 20 Blood Pressure 105/50 L Pulse Oximetry 97 97 98 Oxygen Delivery Oxygen Flow Rate 05/30/25 13:00 05/30/25 13:01 05/30/25 13:13 Temperature Pulse Rate Respiratory Rate 20 Blood Pressure 93/33 L Pulse Oximetry 96 96 Oxygen Delivery Oxygen Flow Rate 05/30/25 13:15 05/30/25 13:30 05/30/25 13:45 Temperature Pulse Rate Respiratory Rate Blood Pressure Pulse Oximetry 98 95 97 Oxygen Delivery Oxygen Flow Rate 05/30/25 13:46 05/30/25 14:00 05/30/25 14:15 Temperature Pulse Rate Respiratory Rate Blood Pressure 101/43 L Pulse Oximetry 96 96 97 Oxygen Delivery Oxygen Flow Rate 05/30/25 14:30 05/30/25 14:31 05/30/25 14:45 Temperature Pulse Rate Respiratory Rate Blood Pressure 102/52 L Pulse Oximetry 97 96 97 Oxygen Delivery Oxygen Flow Rate 05/30/25 15:00 05/30/25 15:04 05/30/25 15:15 Temperature Pulse Rate 88 87 85 Respiratory Rate 18 19 28 H Blood Pressure 102/52 L Pulse Oximetry 98 Oxygen Delivery Oxygen Flow Rate 05/30/25 15:16 05/30/25 15:30 05/30/25 15:45 Temperature Pulse Rate 86 82 80 Respiratory Rate 18 15 15 Blood Pressure 102/53 L Pulse Oximetry 98 98 98 Oxygen Delivery Oxygen Flow Rate 05/30/25 16:00 05/30/25 16:02 05/30/25 16:15 Temperature Pulse Rate 82 82 81 Respiratory Rate 16 16 13 Blood Pressure 116/99 H Pulse Oximetry 100 100 98 Oxygen Delivery Oxygen Flow Rate 05/30/25 16:19 05/30/25 16:30 05/30/25 16:45 Temperature Pulse Rate 81 80 84 Respiratory Rate 14 14 14 Blood Pressure 116/99 H Pulse Oximetry 96 97 Oxygen Delivery Oxygen Flow Rate 05/30/25 16:47 05/30/25 16:49 05/30/25 17:00 Temperature Pulse Rate 83 84 79 Respiratory Rate 15 20 16 Blood Pressure 96/48 L 96/48 L Pulse Oximetry 95 100 96 Oxygen Delivery Oxygen Flow Rate 05/30/25 17:15 05/30/25 17:30 05/30/25 17:31 Temperature Pulse Rate 77 77 78 Respiratory Rate 18 16 18 Blood Pressure 112/47 L Pulse Oximetry 94 Oxygen Delivery Oxygen Flow Rate 05/30/25 20:41 05/30/25 20:44 Temperature Pulse Rate 79 Respiratory Rate 18 Blood Pressure Pulse Oximetry 96 Oxygen Delivery Nasal Cannula Oxygen Flow Rate 4 Exam Narrative: Weight 70.7 kg BMI 21.7 Const: Other: Chronically ill-appearing, thin body habitus, no acute distress HENMT: Other: Head is normocephalic atraumatic, mucous membranes are moist, upper and lower dentures in place, nasal cannula in place Eyes: Other: Pupils are equal and reactive, positive conjunctival pallor, no scleral icterus is, mild bilateral lens replacements noted Neck: Other: No JVD, no lymphadenopathy Resp: Other: Coarse crackles bilaterally, no increased work of breathing Cardio: Other: Regular rate, regular rhythm, 2+ bilateral radial and pedal pulses, no murmur GI: Other: Soft, nontender, nondistended got positive bowel sounds Skin: Other: Generalized pallor, non jaundice, normal temperature to touch Neuro: Other: Alert oriented x4, speech is clear, no facial asymmetry, no localizing neurologic deficits noted during the course of conversation although patient does seem moderately hard of hearing Extrem: Other: No cyanosis, mild edema of the left foot and ankle (drop foot), mild clubbing of nail beds Psych: Other: Appropriate mood and affect, pleasant and cooperative, judgment and insight intact H&P: Results Labs Labs: Laboratory Tests 05/30/25 11:26 05/30/25 11:26 05/30/25 05/30/25 11:26 14:05 WBC 11.8 H RBC 2.97 L Hgb 8.5 L Hct 28.7 L MCV 96.6 MCH 28.6 MCHC 29.6 L RDW 14.9 H Plt Count 216 MPV 9.7 Immature Gran % (Auto) 0.8 H Neut % (Auto) 83.6 H Lymph % (Auto) 6.8 L [place] % (Auto) 8.0 Eos % (Auto) 0.6 Baso % (Auto) 0.2 Lymph # (Auto) 0.80 L [place] # (Auto) 1.0 H Eos # (Auto) 0.1 Baso # (Auto) 0.0 Abs Immat Gran (auto) 0.10 H Absolute Neuts (auto) 9.9 H Absolute Nucleated RBC 0.000 Band Neutrophils % Not Reportable Nucleated RBC % 0.0 Platelet Estimate Adequate Hypochromasia 1+ Schistocytes None seen Sodium 139 Potassium 4.3 Chloride 104 Carbon Dioxide 26 Anion Gap 9 BUN 21 H Creatinine 1.13 Estim Creat Clear Calc 49 Estimated GFR > 60 Glucose 112 H Calcium 9.1 Total Bilirubin 0.3 AST 28 ALT 18 Alkaline Phosphatase 224 H Total Protein 7.0 Albumin 3.4 L Influenza A (RT-PCR) Negative Influenza B (RT-PCR) Negative RSV (RT-PCR) Negative SARS-CoV-2 RNA (RT-PCR) Negative Impressions Chest X-Ray 05/30/25 13:09 Impression: Probable mild pulmonary edema, worse in the right lung than left, versus possibly pneumonia. Correlate clinically. Small right pleural effusion. EKG: Sinus rhythm rate of 76 possible left atrial enlargement, incomplete right bundle-branch block, QTC 449, prior first-degree AV block no longer present Assessment and Plan Assessment and plan (1) Combined systolic and diastolic congestive heart failure: Qualifiers: Heart failure chronicity: acute on chronic Qualified Code(s): I50.43 - Acute on chronic combined systolic (congestive) and diastolic (congestive) heart failure Code(s): I50.40 - Unspecified combined systolic (congestive) and diastolic (congestive) heart failure Status: Acute (2) Pneumonia: Qualifiers: Laterality: right Lung location: unspecified part of lung Pneumonia type: due to unspecified organism Qualified Code(s): J18.9 - Pneumonia, unspecified organism Code(s): J18.9 - Pneumonia, unspecified organism Status: Acute (3) Dyspnea on exertion: Code(s): R06.09 - Other forms of dyspnea Status: Acute (4) SNEHA (mycobacterium avium-intracellulare): Code(s): A31.0 - Pulmonary mycobacterial infection Status: Acute (5) Chronic hypoxic respiratory failure, on home oxygen therapy: Code(s): J96.11 - Chronic respiratory failure with hypoxia; Z99.81 - Dependence on supplemental oxygen Status: Acute (6) Chronic pulmonary aspergillosis: Code(s): B44.1 - Other pulmonary aspergillosis Status: Acute Plan Dyspnea on exertion likely multifactorial due to he pulmonary edema from he opted stated systolic and diastolic function and or pneumonia in a patient with complex lung disease he and polymicrobial infections in the past. Pulmonology has been consulted. Will continue antibiotic therapy that was recommended during prior hospitalization with 2 g of Rocephin, 500 mg of azithromycin and Bactrim. Blood cultures have been obtained and are pending. Will repeat CBC and electrolyte panel in a.m.. Flu RSV and COVID PCR were negative. Will continue patient's home metoprolol and a and will hold the patient's oral Lasix and place him on Lasix 40 mg IV daily. Will monitor strict I&O's and daily weights. He will continue scheduled nebulizers. Remainder of patient's home medications have been reviewed and reconciled as appropriate. MEDICAL DECISION MAKING NARRATIVE -Spoke with the ED provider in detail regarding patient's evaluation, workup and management -Patient seen and examined at bedside -Collaborated with patient's nurse at the bedside in detail and addressed all concerns -Labs, electrolytes, radiology, investigations and test results reviewed -ED/Consult/Nursing/Ancilliary notes on the chart reviewed and appreciated -Spoke with patient at bedside and the plan was discussed and questions were answered. Quality VTE Prophylaxis VTE prophylaxis: pharmacologic ordered (Lovenox 40 mg subQ daily.) Hospitalist [facility] Advance Care Plan I have confirmed that the patient's Advanced Care Plan is present, code status is documented, or surrogate decision maker is listed in patient medical record.: Yes Medication Reconciliation I have utilized all available resources to obtain, update and review the patients current medications (includes all prescriptions, OTC, herbals, cannabis, and nutritional supplements).: Yes
[2025-05-31] VITALS (18 sets, daily range): BP systolic 105–133; BP diastolic 40–49; PULSE 63–90; RESP 16–18; TEMP 36.8–36.9; O2SAT 93–96
[2025-05-31] MEDS: ALBUTEROL SULFATE NEB 2.5 MG/3 ML INH INHALATION (02:11)
[2025-05-31] MEDS: LINACLOTIDE 145 MCG CAPSULE 290 MCG PO (05:43)
[2025-05-31] MEDS: DEXTROSE IVPB (05:44)
[2025-05-31] MEDS: SULFAMETHOXAZOLE IVPB (05:44)
[2025-05-31] MEDS: WATER IVPB (05:44)
[2025-05-31] MEDS: TRIMETHOPRIM IVPB (05:44)
[2025-05-31] MEDS: IPRATROPIUM 0.5 MG/ALBUTEROL SULFATE 2.5 MG AMPUL.NEB 3 ML INHALATION ×3 (07:13→20:51)
[2025-05-31] MEDS: UMECLIDINIUM/VILANTEROL 62.5-25 MCG ELLIPTA 1 PUFF INHALATION (07:14)
[2025-05-31] MEDS: FUROSEMIDE INJ 40 MG/4 ML VIAL IV PUSH (08:12)
[2025-05-31] MEDS: PANTOPRAZOLE 40 MG TABLET PO (08:12)
[2025-05-31] MEDS: MULTIVITAMINS THERAPEUTIC TAB (*BKC) 1 TABLET PO (08:12)
[2025-05-31] MEDS: FENOFIBRATE NANOCRYSTALLIZED 145 MG TABLET PO (08:12)
[2025-05-31] MEDS: MORPHINE SULFATE (*CRX) 30 MG TABCR PO (08:12)
[2025-05-31] MEDS: ASPIRIN 81 MG ENTERIC TABLET PO (08:12)
[2025-05-31] MEDS: SERTRALINE HCL 50 MG TABLET PO (08:12)
[2025-05-31] MEDS: guaiFENesin 12 HR 600 MG TABCR 1200 MG PO ×2 (08:12→20:45)
[2025-05-31] MEDS: ACYCLOVIR 400 MG TABLET PO ×3 (08:12→16:50)
[2025-05-31] MEDS: ENOXAPARIN 40 MG/0.4 ML SYRINGE SUB-Q (08:13)
[2025-05-31] MEDS: ATORVASTATIN 40 MG TABLET 80 MG PO (08:13)
[2025-05-31] MEDS: TOBRAMYCIN/DEXAMETHASONE OP 2.5 ML BTL 1 DROP EACH EYE ×3 (08:14→16:50)
[2025-05-31] MEDS: MEROPENEM 1 GM in SODIUM CHLORIDE 0.9% IV 100 ML 200 ML IVPB ×2 (08:26→20:46)
[2025-05-31] MEDS: buPROPion HCL SR (12 HR) 150 MG TAB PO ×2 (08:31→16:50)
[2025-05-31] MEDS: TAMSULOSIN HCL 0.4 MG CAPSULE PO ×2 (12:42→16:50)
--- NOTE | 2025-05-31 13:19 | P.CONPL_ITS ---
Assessment and Plan Assessment and plan (1) Acute on chronic respiratory failure with hypoxia: Code(s): J96.21 - Acute and chronic respiratory failure with hypoxia Status: Resolved Assessment and Plan: 04/28/2025: Home O2 assessment: Final recommendation was 2 L at rest and 5 L with activity. 05/31/25:05/31/2025: Patient has worsening dyspnea on exertion, worsening cough and phlegm production and worsening hypoxemia with no wheezing. He presented with a leukocytosis. I do not feel this is a COPD exacerbation. He does have chronic issues expectorating his phlegm and does persist. When I enter the room he was on 5 L nasal cannula saturations 99%. I decreased him to 4 L nasal cannula saturations were 94%. I decreased him to 2 L nasal cannula saturations were 92%. Patient with a history of SNEHA in sputum, multiple pulmonary infections requiring antibiotics on 02/25/2024, 04/10/2024, 09/08/2024, 10/04/2024, 11/04/2024, 11/20/2024, 12/02/2024, 03/02/2025, 04/25/2025, 05/12/2025, and 05/22/2025. Other comorbidities include COPD and history of fluid overload. Plan: Continue treatment for possible bacterial infection with meropenem to cover his Pseudomonas and Alcaligenes and azithromycin for atypical coverage. MRSA swab, If positive will add vancomycin. Respiratory pathogen panel, urine for Legionella, urine for pneumococcal studies ordered. Will place on continuous pulse ox. Goal saturation 90-94%. Adjust oxygen accordingly. Recommend transfer to [facility] to be evaluated by Infectious Disease and Pulmonary teams given multiple hospitalizations despite my best care. Excepted on 05/30/2025 no beds available. Will follow with you (2) Chronic obstructive pulmonary disease: Code(s): J44.9 - Chronic obstructive pulmonary disease, unspecified Status: Acute Assessment and Plan: Gold grade 2 group E COPD Regarding his COPD, patient with 60 pack year tobacco use quit in 2019, alpha 1 anti trypsin genotype MM, [id number] apical predominant centrilobular and paraseptal emphysema on his CT scan from 10/11/2021. Of note he has had COVID pneumonia on 09/10/2021 and Pseudomonas aeruginosa on 10/10/2021 and 04/26/2025. His PFTs from 12/16/2023 show mild obstruction with FEV1 68%, ratio 61%. No bronchodilator response, hyperinflation, severely decreased DLCO the remains mildly decreased when adjusted for alveolar volume. Compared to 01/01/2022 had been a significant decrease in the FVC, FEV1, total lung capacity, functional residual capacity and diffusing capacity. When admitted for pneumonia had an ABG on 02/25/2024 on 3 L nasal cannula 7.44/36/67. 10/04/2024: ABG on 2 L 7.43/41/75. 10/04/2024: White blood cell count 11.1 eosinophils 3.2%=355/uL. 04/09/2024 white blood cell count 11.1, eosinophils 0.4%=44/uL. Tested positive for COVID 11/13/2023 treated with Paxlovid, rebound symptoms treated with clarithromycin and doxycycline. Hospitalize 02/25/2024 for pneumonia with sputum showing Haemophilus treated with steroids. Hospitalized 04/10/24 to 04/12/24 for COPD exacerbation treated with prednisone and azithromycin. 09/08/2024 cold symptoms, treated with doxycycline and prednisone taper. 10/04/2024 ED visit for shortness of breath treated for fluid overload and COPD exacerbation with prednisone and Augmentin. 11/04 admitted to [facility] with congestive heart failure and pneumonia no evidence of COPD exacerbation. 11/20 admitted to [facility] for shortness of breath, fluid overload and possible pneumonia. 12/02/2024 through 12/06/2024 admitted to [facility] treated for pneumonia. sputum from 12/17/2024 grew out Alcaligenes xylosoxidans sensitive to meropenem and Septra, intermediate to Zosyn, resistant to ceftaz, levofloxacin and imipenem. 03/02/2025 patient with increased phlegm production and treated for bronchitis with Septra DS 2 tablets twice a day x 7 days. 04/25/25 through 04/28/2025: admitted to [facility] for respiratory distress and hypoxemia. I spoke with the emergency room physician and requested that he be transferred to [facility] said he could be evaluated by an Infectious Disease team which we do not have at [facility]. Patient was referred to [facility] but no beds were available. In the meantime I recommended ceftriaxone, azithromycin and Septra. 04/26/25: a CT angiogram of the chest: I have compared this to CT scans from 11/20/2024 and 08/29/2024 and 02/25/2024. Current CT shows no PE, worsening consolidation and infiltrates in the right lower lobe compared to 11/20/2024 and 02/25/[address]24. [address] scan on 02/25/2024 currently there are some areas of improved consolidation in the right lower lobe and some different areas with worsening consolidations in the right lower lobe. There is unchanged consolidation in the posterior left lower lobe with no change compared to 11/20/2024, 08/29/2024 and that have improved from 02/25/2024. Currently there are patchy consolidations in the right middle lobe some which were present on 11/20/2024 and some that are new. There were no infiltrates on 08/29/2024 in the right middle lobe. Modified barium swallow normal. Sputum has grown out normal chico. 04/28/2025: Home O2 assessment: Final recommendation was 2 L at rest and 5 L with activity. discharged on cefdinir x3 days, azithromycin x2 days, Septra 2 tablets p.o. b.i.d. x3 days, but of SP, guaifenesin 1200 b.i.d., Lasix 20 p.o. q.day, 4 L at night. After discharge respiratory pathogen panel was positive for human metapneumovirus. He was to be evaluated with [facility] on 05/02/2025. sputum for AFB collected on 04/27/2025 and 04/28/2025. 05/12/2025: Seen in the emergency department for progressively worse shortness of breath, sputum production, BNP 3300, COVID, influenza, RSV RT PCR negative. ABG 7.39/40/88 on 2 L nasal cannula. prescribed Septra 1 tablet p.o. q.12 hours x7 days 05/22/2025: Patient called his PCP coughing all day with a little bit of phlegm raspy throat. levofloxacin 750 q.day prescribed X 10 days. 05/31/2025: Patient has worsening dyspnea on exertion, worsening cough and phlegm production and worsening hypoxemia with no wheezing. He presented with a leukocytosis. I do not feel this is a COPD exacerbation. He does have chronic issues expectorating his phlegm and does persist. Plan: DuoNebs q.6 hours, guaifenesin 1200 mg p.o. q.12 hours, Claritin 10 mg p.o. q.day, I will add Mucomyst q.6 hours, coronary flutter valve and vest therapy twice a day. 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 Sputum on 12/15/2024 with AFB verified on 01/14/25 and grew SNEHA on 03/03/25. Sensitivities 03/20/25. On 03/20/25 patient referred to [facility] with appointment scheduled for 05/02/2025. Sputum on 12/16/2024 with AFB verified on 01/20/25 and grew SNEHA on 02/01/25.?Sensitivities 03/28/25. QuantiFERON gold was negative on 01/24/25. ORGANISM: MYCOBACTERIUM AVIUM COMPLEX AMIKACIN: 16 S mcg/mL AMIKACIN (LIPOSOMAL, INHALED): 16 S mcg/mL CIPROFLOXACIN: >8 mcg/mL CLARITHROMYCIN: 2 S mcg/mL CLOFAZIMINE: 0.25 mcg/mL DOXYCYCLINE: >8 mcg/mL LINEZOLID: 16 I mcg/mL MINOCYCLINE: >8 mcg/mL MOXIFLOXACIN: 4 R mcg/mL RIFABUTIN: 1 mcg/mL RIFAMPIN: >4 mcg/mL STREPTOMYCIN: >32 * This is a corrected result. * A prior result that was reported as final has been changed. 1. Mycobacterium avium complex M.I.C. RX --------- --- Rifampin AFB >4 S Streptomycin AFB R Amikacin AFB 16 S Moxifloxacin AFB R 04/25/2025: Recommended patient be transferred to [facility] so he could be evaluated by Infectious Disease team to determine if he needs active treatment for his SNEHA and if so which medicines would be recommended. 04/26/25: patient is afebrile today. Patient feels improved with ceftriaxone cam a azithromycin and Septra. Plan: I will send repeat sputum for AFB. Recommend transfer to [facility] to be evaluated by Infectious Disease team. Sputum on 04/27/2025 and 04/28/2025 AFB smear negative and no growth of AFB as of 05/31/25. 05/02/2025: Patient was seen at [facility] infectious Disease Clinic. We have contacted the clinic multiple times to get the note and have been unsuccessful. The patient tells me he has no idea what they said or recommended other than to follow-up in July. 05/31/25: patient with recurrent infectious episodes associated with hypoxemia which may or may not be related to SNEHA. Plan: Recommend transfer to [facility] so that he can be evaluated by the Infectious Disease team to determine if he needs treatment for SNEHA. Will send sputum for AFB x3 History of Present Illness History of Present Illness Consult date: 05/31/25 Chief complaint: Atypical Mycobacterium Pneumonia/Hypoxia Narrative: 04/26/2025: This is a new pulmonary consult for COPD and MAC. 80-year-old with a history of coronary artery disease status post non ST elevation SD August of 2019, ischemic cardiomyopathy, hypertension, hyperlipidemia, Gold grade 2 group B COPD on home oxygen 7 L at rest, with activity and with sleep and MAC lung disease. Regarding his COPD, patient with 60 pack year tobacco use quit in 2019, alpha 1 anti trypsin genotype MM, [id number] apical predominant centrilobular and paraseptal emphysema on his CT scan from 10/11/2021. Of note he has had COVID pneumonia on 09/10/2021 and Pseudomonas aeruginosa on 10/10/2021, and 04/26/2025. His PFTs from 12/16/2023 show mild obstruction with FEV1 68%, ratio 61%. No bronchodilator response, hyperinflation, severely decreased DLCO the remains mildly decreased when adjusted for alveolar volume. Compared to 01/01/2022 had been a significant decrease in the FVC, FEV1, total lung capacity, functional residual capacity and diffusing capacity. When admitted for pneumonia had an ABG on 02/25/2024 on 3 L nasal cannula 7.44/36/67. 10/04/2024: ABG on 2 L 7.43/41/75. 10/04/2024: White blood cell count 11.1 eosinophils 3.2%=355/uL. 04/09/2024 white blood cell count 11.1, eosinophils 0.4%=44/uL. Tested positive for COVID 11/13/2023 treated with Paxlovid, rebound symptoms treated with clarithromycin and doxycycline. Hospitalize 02/25/2024 for pneumonia with sputum showing Haemophilus treated with steroids. Hospitalized 04/10/24 to 04/12/24 for COPD exacerbation treated with prednisone and azithromycin. 09/08/2024 cold symptoms, treated with doxycycline and prednisone taper. 10/04/2024 ED visit for shortness of breath treated for fluid overload and COPD exacerbation with prednisone and Augmentin. 11/04 admitted to [facility] with congestive heart failure and pneumonia no evidence of COPD exacerbation. 11/20 admitted to [facility] for shortness of breath, fluid overload and possible pneumonia. 12/02/2024 through 12/06/2024 admitted to [facility] treated for pneumonia. sputum from 12/17/2024 grew out Alcaligenes xylosoxidans sensitive to meropenem and Septra, intermediate to Zosyn, resistant to ceftaz, levofloxacin and imipenem. 03/02/2025 patient with increased phlegm production and treated for bronchitis with Septra DS 2 tablets twice a day x 7 days. 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 Sputum on 12/15/2024 with AFB verified on 01/14/25 and grew SNEHA on 03/03/25. Sensitivities 03/20/25. On 03/20/25 patient referred to [facility] with appointment scheduled for 05/02/2025. Sputum on 12/16/2024 with AFB verified on 01/20/25 and grew SNEHA on 02/01/25.?Sensitivities 03/28/25. QuantiFERON gold was negative on 01/24/25. Patient was treated for bronchitis on 03/02/2025 and improved with Septra. He was at his baseline which is dyspnea on exertion at 50-75 feet. He is using 7 L at rest, with saturations 95-97% at home. He is using 7 L with activity with saturations 92%. He is using 7 L at night. He typically has no daily fevers. He coughs phlegm 2 times a day which is described as lynn. Patient tells me he was at his baseline on 04/24/2020 5. On 04/25/2025 he developed a fever, increased cough, worsening dyspnea on exertion with the same amount of phlegm. Family reported some confusion. He was brought to the emergency department. 04/25/25 through 04/28/2025: admitted to [facility] for respiratory distress and hypoxemia. I spoke with the emergency room physician and requested that he be transferred to [facility] said he could be evaluated by an Infectious Disease team which we do not have at [facility]. Patient was referred to [facility] but no beds were available. In the meantime I recommended ceftriaxone, azithromycin and Septra. 04/26/25: a CT angiogram of the chest: I have compared this to CT scans from 11/20/2024 and 08/29/2024 and 02/25/2024. Current CT shows no PE, worsening consolidation and infiltrates in the right lower lobe compared to 11/20/2024 and 02/25/2024. Compared to CT scan on 02/25/2024 currently there are some areas of improved consolidation in the right lower lobe and some different areas with worsening consolidations in the right lower lobe. There is unchanged consolidation in the posterior left lower lobe with no change compared to 11/20/2024, 08/29/2024 and that have improved from 02/25/2024. Currently there are patchy consolidations in the right middle lobe some which were present on 11/20/2024 and some that are new. There were no infiltrates on 08/29/2024 in the right middle lobe. Modified barium swallow normal. Sputum has grown out normal chico. 04/28/2025: Home O2 assessment: Final recommendation was 2 L at rest and 5 L with activity. discharged on cefdinir x3 days, azithromycin x2 days, Septra 2 tablets p.o. b.i.d. x3 days, but of SP, guaifenesin 1200 b.i.d., Lasix 20 p.o. q.day, 4 L at night. After discharge respiratory pathogen panel was positive for human metapneumovirus. He was to be evaluated with [facility] on 05/02/2025. sputum for AFB collected on 04/27/2025 and 04/28/2025. 05/02/2025: Patient was seen at [facility] infectious Disease Clinic. We have contacted the clinic multiple times to get the note and have been unsuccessful. The patient tells me he has no idea what they said or recommended other than to follow-up in July. 05/12/2025: Seen in the emergency department for progressively worse shortness of breath, sputum production, BNP 3300, COVID, influenza, RSV RT PCR negative. ABG 7.39//88 on 2 L nasal cannula. prescribed Septra 1 tablet p.o. q.12 hours x7 days 05/22/2025: Patient called his PCP coughing all day with a little bit of phlegm raspy throat. levofloxacin 750 q.day prescribed X 10 days. 05/29/25: I spoke to the patient and usually is on 2 L at rest and 5 with activity. I spoke to the patient today and he is on 4-5 L at rest with saturations 87%. His saturations with 5 L activity are in the mid 80s. He says he has not gained weight and is not swollen. He has finished 10 days of antibiotics through his PCP. I recommended the patient be evaluated in the emergency department and I recommended that he go to [facility] emergency department so that he could be evaluated by their Pulmonary team and their Infectious Disease team. He voiced understanding. 05/30/2025: Patient presented to [facility] ED with complaints of shortness of breath, exertional hypoxemia. He finished his outpatient Levaquin today. blood pressure 112/47, heart rate 79, saturation 96% on 4 L nasal cannula. Afebrile, creatinine 1.13. White blood cell count 11.8. I spoke to the emergency room and recommended he be transferred to [facility] to be evaluated by the Infectious Disease team and pulmonary team. Patient was accepted but no beds available. MRSA swab negative. Started on ceftriaxone, azithromycin and Septra. Patient given Lasix 40 IV x1. 05/31/2025: Currently the patient tells me he is breathing at his baseline at rest. He has worsening dyspnea on exertion. His cough and phlegm production or better than yesterday. He denies fever, chills, rigors, sweats. He has no hemoptysis. He has no worsening orthopnea, he has stable nocturia every 2 hours at home. When I enter the room he was on 5 L nasal cannula saturations 99%. I decreased him to 4 L nasal cannula saturations were 94%. I decreased him to 2 L nasal cannula saturations were 92%. DATA 04/26/2025: EXAMINATION: CTA chest PE protocol DATE: 04/26/2025 13:46 CDT INDICATION: Shortness of breath TECHNIQUE: Computed tomographic angiography (CTA) of the chest was performed with 100 mL Omnipaque-350 intravenous contrast. The dose-length product was 256.22 mGy-cm. Maximum intensity projection 3D-reconstructions of the aorta and other arteries were constructed by the technologist on a separate workstation. Automated exposure control and iterative reconstruction technique were employed. COMPARISON: Chest x-ray dated 04/25/[address] dated 11/20/2024. FINDINGS: Small right pleural effusion. Trace left pleural effusion. There is mediastinal lymphadenopathy. There is right hilar lymphadenopathy. There is atherosclerosis of the aorta and coronary arteries. Small hiatal hernia. Heart size normal. Pulmonary arteries are enlarged, consistent with pulmonary hypertension. Study is technically adequate without evidence for pulmonary embolism. There is patchy bilateral airspace disease of the right upper, right middle and bilateral lower lobes, consistent with multifocal pneumonia. No endobronchial lesions. There is emphysema. No suspicious pulmonary nodules or masses. Mild thoracic spondylosis. No focal lytic or blastic lesions. IMPRESSION: 1. Multifocal airspace disease, consistent with pneumonia. 2: Bilateral pleural effusions, right greater than left. 3: Mediastinal lymphadenopathy, likely reactive. 4.: Pulmonary artery enlargement, consistent with pulmonary hypertension. 5: Emphysema. My read: I have compared this to CT scans from 11/20/2024 and 08/29/2024 and 02/25/2024. Current CT shows no PE, , Small right pleural effusion, worsening consolidation and infiltrates in the right lower lobe compared to 11/20/2024 and 02/25/2024. Compared to CT scan on 02/25/2024 currently there are some areas of improved consolidation in the right lower lobe and some different areas with worsening consolidations in the right lower lobe. There is unchanged consolidation in the posterior left lower lobe with no change compared to 11/20/2024, 08/29/2024 and that have improved from 02/25/2024. Currently there are patchy consolidations in the right middle lobe some which were present on 11/20/2024 and some that are new. There were no infiltrates on 08/29/2024 in the right middle lobe. 01/02/25:? Modified barium swallow:? Impression:? Moderate dysphagia 11/20/24: EXAMINATION:.? Recommendations: Regular but easy to chew diet with regular liquids but patient must use chin tuck posture with all eating and drinking to prevent pharyngeal residual and instances of laryngeal penetration and aspiration.? He was referral to outpatient speech therapy. 12/14/24:? CRP 3.6, ESR 134,? CPK 43, Aspergillus Niger IgE 0.31, very low level.? Aspergillus Niger antibody negative, Aspergillus flatus antibody negative.? Aspergillus fumigatus antibody negative.? Rheumatoid factor 12.9, anti CCP antibody less than 16.? TERRA screen positive with an anti-DNA antibody 27 (positive greater than 10), Anca screen negative, hypersensitivity pneumonitis panel negative.? 01/24/2025:? QuantiFERON gold negative.? IgE 691 normal less than 114, rheumatoid factor 12.9. IgG 693, IgM 90, IgA 212, all normal.? Aldolase 5.0 ?CTA chest PE protocol INDICATION: Hypoxia elevated d-dimer COMPARISON: 08/29/2024 and 10/11/2021. FINDINGS: No filling defects within the main or proximal pulmonary arteries. The thoracic aorta is unremarkable. No aneurysmal dilatation or dissection. The heart is of normal size, without pericardial effusion. Panlobular emphysematous disease is identified. Patchy groundglass opacification detected bilaterally. Small bilateral pleural effusions with adjacent compressive atelectasis Multiple subcentimeter areas of decreased attenuation within the liver, unchanged dating back to 10/11/2021. IMPRESSION: No pulmonary embolus. No aneurysmal dilatation or dissection within the thoracic aorta. Small bilateral pleural effusions with adjacent compressive atelectasis. 08/16/2024: Overnight oximetry on 3 L nasal cannula. The report in the computer status overnight oximetry on room air but this is mislabeled as the test was performed on 3 L. Recording duration 8 hours and 39 minutes. Basal saturation 92.1%. High saturation 96%. Low saturation 79%. Time with saturation less than or equal to 88% was 4 minutes and 58 seconds. I will continue oxygen 3 L at night. 06/24/2024: This is a 6 minute walk test. The test was performed and interpreted in accordance with the 2014 ERS/ATS task force guidelines. Of note, patient used to wheeled walker for stability and the testing was performed on his home portable oxygen concentrator at 3 L with pulse dose. Findings: The patient's resting 3 L oxygen saturation measured by pulse oximetry was 95% and heart rate was 80 bpm. Patient ambulated for 137 meters and oxygen saturation remained 91 to 92%. Heart rate at the end of the study was 94 bpm. The patient did not have rest or exertional hypoxemia on 3 L nasal cannula pulse dose with his portable oxygen concentrator. 02/25/24 - CTA chest (ER) - No PE identified. 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 There is patchy consolidation in the right middle and bilateral lower lobes with additional regions of tree-in-bud opacity scattered throughout both lungs consistent with multifocal pneumonia. There is associated bronchial wall thickening and mucous plugging in the bilateral lower lobes. Tiny left pleural effusion. No septal line thickening to suggest pulmonary edema. No pneumothorax. Mild cardiomegaly. Atherosclerotic coronary artery calcifications. No pericardial effusion. 02/25/2024: ABG on 4 L cannula 7.39/35/63 01/15/24 - Home O2 eval - Required 2L/min O2 with ambulation and none at rest. 12/16/23 - PFT The test was performed and results interpreted in accordance with the 2019 and 2005 ATS/ERS Task Force guidelines respectively using the Global Lung Function Initiative-2012 reference equations. Patient demonstrated good effort and cooperation. Reproducibility criteria were met. The quality of the pre bronchodilator spirometry maneuver was Grade A and post bronchodilator spirometry maneuver was Grade A. Findings: Spirometry:? There is decreased maximal expiratory airflow at all lung volumes with concave expiratory flow tracing.? The contour the inspiratory flow tracing is normal.? The pre bronchodilator FVC is 3.33 L, 82% predicted.? The pre bronchodilator FEV1 is 2.02 L, 68% predicted.? The pre bronchodilator FEV1: FVC ratio 61%.? The post bronchodilator FVC is 3.41 L, representing a 2% increase.? The post bronchodilator FEV1 is 2.09 L, representing a 3% increase.? The post bronchodilator FEV1:? FVC ratio 61%.? Plethysmography:? The total lung capacity is 6.43 L, 89% predicted.? The functional residual capacity is 4.14 L, 106% predicted.? The residual volume is 3.10 L, 115% predicted.? The residual volume:? Total lung capacity ratio is 48%.? Diffusing capacity:? The diffusing capacity unadjusted for hemoglobin and carboxyhemoglobin is 9.0, 37% predicted.? The diffusing capacity adjusted for alveolar volume is 2.29, 64% predicted. Comparison to previous pulmonary function testing on 01/01/2022 the post bronchodilator FVC has decreased from 4.38 L to 3.41 L.? The post bronchodilator FEV1 has decreased from 3.11 L to 2.09 L. the total lung capacity is decreased from 7.39 L to 6.43 L.? The functional residual capacity has decreased from 4.95 L to 4.14 L.? The residual volume is unchanged from 2.93 L to 3.10 L.? The diffusing capacity unadjusted for hemoglobin and carboxyhemoglobin is decreased from 14.9 to 9.0.? The diffusing capacity adjusted for alveolar volume decreased from 2.63 to 2.29 Impression: There is a mild obstructive abnormality. There is no significant improvement after inhaling a single dose of albuterol.? The increase in residual volume to total lung volume ratio is consistent with hyperinflation from an obstructive abnormality.? The diffusing capacity unadjusted for hemoglobin and carboxyhemoglobin is severely decreased and remains mildly decreased when adjusted for alveolar volume. Compared to prior pulmonary function testing on 01/01/2022 there has been a significant decrease in the FVC, FEV1, total lung capacity, functional residual capacity and diffusing capacity with no significant change in the residual volume. 09/16/23 - Home O2 eval - Required 2L/min O2 with ambulation and none at rest. 01/01/22 - Home O2 eval - Patient did not require supplemental oxygen at rest or with exertion. 01/01/22 - PFTs - Mild obstructive abnormality with normal FEV1 without significant improvement after inhaling a single dose of albuterol. Lung volumes normal. The diffusing capacity unadjusted for hemoglobin is moderately decreased and normalizes when adjusted for alveolar volume. 12/18/21 - Overnight oximetry on room air - Time with saturation less than or equal to 88% was 4.0 minutes. Patient does not qualify for supplemental oxygen at night. 10/10/2021 - ABG on 4L NC - 7.44/43/70. 10/20/21 - Chest XR - Persistent patchy bilateral airspace disease with possible improvement in the left lung, compatible with pneumonia. 10/11/2021 - CTA chest - Extensive bilateral pulmonary infiltrates and likely reactive hilar or mediastinal adenopathy. Small right pleural effusion. No evidence of pulmonary embolism. 10/11/2021 - Echo - LV systolic function mildly reduced, EF 45-50%. Grade I diastolic dysfunction. The inferior wall, inferoseptal wall, basal inferolateral wall, and mid inferolateral wall are hypokinetic. Mild LA enlargement. No pulmonary hypertension. Review of Systems 2 Constitutional: Constitutional: Reports no additional constitutional complaints Eyes: Eyes: Reports no additional eye complaints ENT: Reports system reviewed and no additional complaints, except as documented Cardiovascular: Cardiovascular: Reports no additional cardiovascular complaints Respiratory: Respiratory: Reports no additional respiratory complaints Gastrointestinal: Gastrointestinal: Reports no additional gastrointestinal complaints Musculoskeletal: Musculoskeletal: Reports no additional musculoskeletal complaints Neurologic: Reports system reviewed and no additional complaints, except as documented Psychiatric: Psychiatric: Reports no additional psychiatric complaints Endocrine: Endocrine: Reports no additional endocrine complaints Hematologic/Lymphatic: Hematologic/Lymphatic: Reports no additional hematologic/lymphatic complaints Allergic/Immunologic: Allergic/Immunologic: Reports no additional allergic/immunologic complaints [facility] Past Medical History Medical History (Updated 05/30/25 @ 21:37 by Safia Almaguer, ) Heart failure with mildly reduced ejection fraction Chronic pulmonary aspergillosis Major depressive disorder, recurrent, mild Left foot drop Chronic kidney disease, stage 3 Spinal stenosis, lumbar region without neurogenic claudication Ischemic cardiomyopathy Echocardiogram 09/2021: Mildly reduced left ventricular systolic function EF of 45-50%, grade 1 diastolic dysfunction, inferior wall inferior septal wall basal inferior wall and mid inferior lateral wall hypokinesis with mild left atrial and large SVT (supraventricular tachycardia) 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 History of tobacco use Polio (1951) Other chronic pain Aortic stenosis Mild - Echo 05/15/2022 NSTEMI (non-ST elevated myocardial infarction) (08/2019) Atherosclerotic heart disease of [place] coronary artery without angina pectoris Abdominal aortic aneurysm, without rupture Seen on CT scan on 02/09/2018 Restless legs syndrome Surgical History Surgical History History of tonsillectomy and adenoidectomy History of repair of rotator cuff bilateral History of colonoscopy with polypectomy History of bowel resection due to obstruction Presence of coronary angioplasty implant and graft History of coronary artery stent placement X2 History of mandibular surgery (1986) reconstructive surgery right mandible related to cancer Family History Family History Mother Diabetes mellitus Acute myocardial infarction Father Colon cancer COPD (chronic obstructive pulmonary disease) Sibling Colon cancer Acute myocardial infarction Lung cancer COPD (chronic obstructive pulmonary disease) Sibling COPD (chronic obstructive pulmonary disease) Sibling Congestive heart failure Sibling Dementia Social History Social History (Updated 05/31/25 @ 03:25 by Safia Almaguer DO) Social History: Surrogate medical decision maker: Yessi Morgan, daughter. Code status: Full code. But he states he would not want to be on a ventilator long-term have a tracheostomy or feeding tube. Smoking packs per day: 1.5 Smoking cigarettes per day: 30.0 Years smoked: 50 Smoking pack-years: 75.00 Smoking status: Former smoker Tobacco type: cigarettes Second hand tobacco smoke exposure: No Alcohol intake: never Substance use: never Substance use type: does not use Other substance usage details: quit alcohol in 2010 Last use: Last alcohol use 2010 Do You Feel Safe in your Home?: Yes Lack of Transportation: No Lack of Food: Never True Current Housing: I Have Housing Concerned About Future Housing: No Difficulty Paying Gas/Electric Bills: No Difficulty Paying for Meds: No Currently Unemployed: No Education: High School Diploma/GED Difficulty w/ Childcare or Family Care: No Living arrangements: with family Additional living arrangements comments: . Lives in [place] with son and [id number]. 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: retired Additional occupation/education comments: [employer] Spiritual care concerns: No Agree to blood products: Yes Meds Home Medications and Allergies Home Medications ?Medication ?Instructions ?Recorded ?Confirmed ?Type acetaminophen 500 mg tablet 1,000 mg PO Q6H PRN Pain 03/18/23 05/30/25 History (Tylenol Extra Strength) multivitamin 1 tablet PO DAILY 03/18/23 05/30/25 History cetirizine 10 mg capsule (Zyrtec) 10 mg PO DAILY PRN allergies 06/13/23 05/30/25 History aspirin 81 mg tablet,delayed 81 mg PO DAILY #90 tabs 06/15/23 05/30/25 Rx release polyethylene glycol 3350 17 gram 17 g PO QAM PRN Constipation #30 ea 06/15/23 05/30/25 Rx oral powder packet (Miralax) fenofibrate 160 mg tablet 160 mg PO DAILY #90 tabs 09/16/23 05/30/25 Rx nebulizer accessories #1 ea 04/12/24 05/30/25 Rx nebulizer and compressor #1 ea 04/12/24 05/30/25 Rx esomeprazole magnesium 20 mg See Rx Instructions .Route 04/28/24 05/30/25 Rx capsule,delayed release .COMPLEX #90 caps linaclotide 290 mcg capsule See Rx Instructions .Route 04/28/24 05/30/25 Rx (Linzess) .COMPLEX #90 caps albuterol sulfate 90 mcg/actuation 2 puff inhalation Q4H PRN 10/03/24 05/30/25 Rx aerosol inhaler Shortness Of Breath Or Wheezing #8.5 grams simethicone 125 mg capsule (Gas-X 125 mg PO PRN 11/21/24 05/30/25 History Extra Strength) baclofen 10 mg tablet 10 mg PO Q12H PRN muscle spasm 12/02/24 05/30/25 History albuterol sulfate 2.5 mg/3 mL 2.5 mg (3 mL) inhalation Q4H PRN 12/08/24 05/30/25 Rx (0.083 %) solution for nebulization shortness of breath or wheezing #90 mL nitroglycerin 0.4 mg sublingual 0.4 mg sublingual Q5M PRN chest 12/08/24 05/30/25 Rx tablet pain #25 tabs bupropion HCl 150 mg tablet,12 hr 150 mg PO BID #180 tabs 12/28/24 05/30/25 Rx sustained-release metoprolol succinate 50 mg 50 mg PO HS #90 tabs 12/29/24 05/30/25 Rx tablet,extended release 24 hr tamsulosin 0.4 mg capsule 0.4 mg PO BID #180 caps 03/20/25 05/30/25 Rx lorazepam 0.5 mg tablet 0.5 mg PO BID PRN anxiety #60 tabs 03/21/25 05/30/25 Rx tobramycin 0.3 %-dexamethasone 0.1 1 drp EACH EYE QID #10 mL 04/05/25 05/30/25 Rx % eye drops,suspension sulindac 200 mg tablet 200 mg PO BID #180 tabs 04/07/25 05/30/25 Rx atorvastatin 80 mg tablet 80 mg PO DAILY #90 tabs 04/11/25 05/30/25 Rx guaifenesin 600 mg tablet, 1,200 mg (2 x 600 mg) PO BID #120 04/14/25 05/30/25 Rx extended release 12 hr tabs sertraline 50 mg tablet 50 mg PO DAILY #90 tabs 04/20/25 05/30/25 Rx benzonatate 200 mg capsule See Rx Instructions .Route 04/26/25 05/30/25 Rx .COMPLEX #90 caps furosemide 20 mg tablet 20 mg PO DAILY #10 tabs 04/28/25 05/30/25 Rx glycopyrrolate 9 mcg-formoterol 2 puff inhalation BID #10.7 grams 04/28/25 05/30/25 Rx 4.8 mcg HFA aerosol inhaler ([employer]) acyclovir 400 mg tablet 400 mg PO TID #21 tabs 05/03/25 05/30/25 Rx morphine 30 mg tablet,extended 30 mg PO QAM #30 tabs 05/08/25 05/30/25 Rx release hydroxyzine HCl 25 mg tablet 25 mg PO QID PRN anxiety #50 tabs 05/19/25 05/30/25 Rx trazodone 100 mg tablet 100 mg PO HS Insomnia #90 tabs 05/24/25 05/30/25 Rx Allergies Allergy/AdvReac Type Severity Reaction Status Date / Time clonazepam AdvReac Severe Drowsy Verified 05/30/25 19:29 roflumilast (From [facility]ires) AdvReac Severe Diarrhea Verified 05/30/25 19:29 Vital Signs Vital Signs - 24 hr 05/30/25 13:30 05/30/25 13:45 05/30/25 13:46 Temperature Pulse Rate Respiratory Rate Blood Pressure 101/43 L Pulse Oximetry 95 97 96 Oxygen Delivery Oxygen Flow Rate 05/30/25 14:00 05/30/25 14:15 05/30/25 14:30 Temperature Pulse Rate Respiratory Rate Blood Pressure Pulse Oximetry 96 97 97 Oxygen Delivery Oxygen Flow Rate 05/30/25 14:31 05/30/25 14:45 05/30/25 15:00 Temperature Pulse Rate 88 Respiratory Rate 18 Blood Pressure 102/52 L Pulse Oximetry 96 97 Oxygen Delivery Oxygen Flow Rate 05/30/25 15:04 05/30/25 15:15 05/30/25 15:16 Temperature Pulse Rate 87 85 86 Respiratory Rate 19 28 H 18 Blood Pressure 102/52 L 102/53 L Pulse Oximetry 98 98 Oxygen Delivery Oxygen Flow Rate 05/30/25 15:30 05/30/25 15:45 05/30/25 16:00 Temperature Pulse Rate 82 80 82 Respiratory Rate 15 15 16 Blood Pressure Pulse Oximetry 98 98 100 Oxygen Delivery Oxygen Flow Rate 05/30/25 16:02 05/30/25 16:15 05/30/25 16:19 Temperature Pulse Rate 82 81 81 Respiratory Rate 16 13 14 Blood Pressure 116/99 H 116/99 H Pulse Oximetry 100 98 96 Oxygen Delivery Oxygen Flow Rate 05/30/25 16:30 05/30/25 16:45 05/30/25 16:47 Temperature Pulse Rate 80 84 83 Respiratory Rate 14 14 15 Blood Pressure 96/48 L Pulse Oximetry 97 95 Oxygen Delivery Oxygen Flow Rate 05/30/25 16:49 05/30/25 17:00 05/30/25 17:15 Temperature Pulse Rate 84 79 77 Respiratory Rate 20 16 18 Blood Pressure 96/48 L Pulse Oximetry 100 96 94 Oxygen Delivery Oxygen Flow Rate 05/30/25 17:30 05/30/25 17:31 05/30/25 20:00 Temperature Pulse Rate 77 78 Respiratory Rate 16 18 Blood Pressure 112/47 L Pulse Oximetry 96 Oxygen Delivery Nasal Cannula Oxygen Flow Rate 5 05/30/25 20:00 05/30/25 20:41 05/30/25 20:44 Temperature Pulse Rate 77 79 Respiratory Rate 18 Blood Pressure Pulse Oximetry 96 Oxygen Delivery Nasal Cannula Oxygen Flow Rate 4 05/30/25 21:45 05/30/25 22:00 05/31/25 00:00 Temperature 36.8 C Pulse Rate 78 79 68 Respiratory Rate 18 Blood Pressure 120/41 L Pulse Oximetry 98 Oxygen Delivery Oxygen Flow Rate 05/31/25 02:12 05/31/25 02:23 05/31/25 04:00 Temperature Pulse Rate 82 77 63 Respiratory Rate 18 Blood Pressure Pulse Oximetry Oxygen Delivery Oxygen Flow Rate 05/31/25 06:00 05/31/25 07:14 05/31/25 07:15 Temperature 36.8 C Pulse Rate 70 78 Respiratory Rate 18 18 Blood Pressure 133/49 L Pulse Oximetry 96 96 Oxygen Delivery Nasal Cannula Oxygen Flow Rate 4 05/31/25 07:25 05/31/25 08:00 05/31/25 08:00 Temperature Pulse Rate 83 73 Respiratory Rate 18 Blood Pressure Pulse Oximetry 95 Oxygen Delivery Nasal Cannula Oxygen Flow Rate 5 05/31/25 12:00 Temperature Pulse Rate 84 Respiratory Rate Blood Pressure Pulse Oximetry Oxygen Delivery Oxygen Flow Rate Exam 2 Const: General: cooperative, healthy appearing and comfortable O rientation/consciousness: oriented to person, oriented to place and oriented to time HENMT: Head: normal to inspection Ears: hearing grossly normal bilaterally Eyes: General: appearance normal, both eyes and all related structures Neck: Neck: normal visual inspection Chest: Chest palpation & inspection: normal inspection of the chest Resp: Effort & Inspection: normal respiratory effort and able to speak in complete sentences Auscultation: no crackles, no rales, no rhonchi, no wheezes and lung sounds not diminished Other: Crackles and rhonchi throughout. No wheezes. Cardio: Jugular venous distension: no JVD GI: Inspection: normal to inspection GI Palp: No abdominal tenderness Skin: General skin exam: normal color Neuro: General: oriented to person, oriented to place and oriented to time Extrem: General: normal to inspection Psych: Appearance: grossly normal Results Laboratory Findings 05/30/25 11:26 05/30/25 11:26 Abnormal lab findings: Abnormal Labs 05/30/25 11:26 WBC 11.8 H RBC 2.97 L Hgb 8.5 L Hct 28.7 L MCHC 29.6 L RDW 14.9 H Immature Gran % (Auto) 0.8 H Neut % (Auto) 83.6 H Lymph % (Auto) 6.8 L Lymph # (Auto) 0.80 L Dickey # (Auto) 1.0 H Abs Immat Gran (auto) 0.10 H Absolute Neuts (auto) 9.9 H BUN 21 H Glucose 112 H Alkaline Phosphatase 224 H Albumin 3.4 L Diagnostic Findings Additional studies: ITS Impressions Chest X-Ray 05/30/25 13:09 Impression: Probable mild pulmonary edema, worse in the right lung than left, versus possibly pneumonia. Correlate clinically. Small right pleural effusion.
--- NOTE | 2025-05-31 13:54 | PM.IMPN ---
Progress Note: A&P Assessment and Plan (1) Combined systolic and diastolic congestive heart failure: Qualifiers: Heart failure chronicity: acute on chronic Qualified Code(s): I50.43 - Acute on chronic combined systolic (congestive) and diastolic (congestive) heart failure Code(s): I50.40 - Unspecified combined systolic (congestive) and diastolic (congestive) heart failure Status: Acute (2) Pneumonia: Qualifiers: Laterality: right Lung location: unspecified part of lung Pneumonia type: due to unspecified organism Qualified Code(s): J18.9 - Pneumonia, unspecified organism Code(s): J18.9 - Pneumonia, unspecified organism Status: Acute (3) Dyspnea on exertion: Code(s): R06.09 - Other forms of dyspnea Status: Acute (4) SNEHA (mycobacterium avium-intracellulare): Code(s): A31.0 - Pulmonary mycobacterial infection Status: Acute (5) Chronic hypoxic respiratory failure, on home oxygen therapy: Code(s): J96.11 - Chronic respiratory failure with hypoxia; Z99.81 - Dependence on supplemental oxygen Status: Acute (6) Chronic pulmonary aspergillosis: Code(s): B44.1 - Other pulmonary aspergillosis Status: Acute Plan Acute respiratory failure with hypoxemia Community-acquired pneumonia History of polymicrobial infections in the past. Pulmonology has been consulted. Continue Rocephin 2 g IV daily, 500 mg of azithromycin and Bactrim. Blood cultures have been obtained and are pending. Flu RSV and COVID PCR were negative. continue scheduled nebulizers. Chronic patient is on 4 L oxygen Acute on chronic combined heart failure Patient has dyspnea X-ray shows pulmonary congestion Echocardiogram on echocardiogram October 2024 Left ventricular systolic function is mildly reduced with an ejection fraction by Biplane Method of Discs of 49 %. left ventricular wall motion shows inf hypokinesis. The left ventricular diastolic function is grade I diastolic dysfunction. Received furosemide 40 mg IV push once Continue furosemide 40 mg IV daily Follow-up input output Patient has negative imbalance 1.4 L today Subjective Date/time seen: 05/31/25 13:54 Interval history: I saw examined patient today. Patient feels better today, dyspnea is improving. Patient still has cough with thick phlegm. Patient is on IV Lasix, patient has a negative input output balance about-1.4 L Patient denies chest pain abdomen pain nausea vomiting diarrhea. Patient 1 bowel movement today Exam Narrative: GENERAL: Pleasant, in no acute distress. Well-nourished. - EYES: EOMI. Anicteric. - HENT: Moist mucous membranes. - LUNGS: Coarse breath sound bilaterally. - CARDIOVASCULAR: Regular rate and rhythm. No murmur. No JVD. - ABDOMEN: Soft, non-tender and non-distended. No palpable masses. - EXTREMITIES: No edema. Peripheral pulses 2+. Non-tender. - NEUROLOGIC: No focal neurological deficits. CN II-XII grossly intact. - PSYCHIATRIC: Awake, Alert and oriented x 3. Appropriate mood and affect. - SKIN: No rashes or lesions. Warm. - LYMPH: No cervical lymphadenopathy. Objective Data Vital Signs Vital Signs: Vital Signs - 24 hr 05/30/25 14:00 05/30/25 14:15 05/30/25 14:30 Temperature Pulse Rate Respiratory Rate Blood Pressure Pulse Oximetry 96 97 97 Oxygen Delivery Oxygen Flow Rate 05/30/25 14:31 05/30/25 14:45 05/30/25 15:00 Temperature Pulse Rate 88 Respiratory Rate 18 Blood Pressure 102/52 L Pulse Oximetry 96 97 Oxygen Delivery Oxygen Flow Rate 05/30/25 15:04 05/30/25 15:15 05/30/25 15:16 Temperature Pulse Rate 87 85 86 Respiratory Rate 19 28 H 18 Blood Pressure 102/52 L 102/53 L Pulse Oximetry 98 98 Oxygen Delivery Oxygen Flow Rate 05/30/25 15:30 05/30/25 15:45 05/30/25 16:00 Temperature Pulse Rate 82 80 82 Respiratory Rate 15 15 16 Blood Pressure Pulse Oximetry 98 98 100 Oxygen Delivery Oxygen Flow Rate 05/30/25 16:02 05/30/25 16:15 05/30/25 16:19 Temperature Pulse Rate 82 81 81 Respiratory Rate 16 13 14 Blood Pressure 116/99 H 116/99 H Pulse Oximetry 100 98 96 Oxygen Delivery Oxygen Flow Rate 05/30/25 16:30 05/30/25 16:45 05/30/25 16:47 Temperature Pulse Rate 80 84 83 Respiratory Rate 14 14 15 Blood Pressure 96/48 L Pulse Oximetry 97 95 Oxygen Delivery Oxygen Flow Rate 05/30/25 16:49 05/30/25 17:00 05/30/25 17:15 Temperature Pulse Rate 84 79 77 Respiratory Rate 20 16 18 Blood Pressure 96/48 L Pulse Oximetry 100 96 94 Oxygen Delivery Oxygen Flow Rate 05/30/25 17:30 05/30/25 17:31 05/30/25 20:00 Temperature Pulse Rate 77 78 Respiratory Rate 16 18 Blood Pressure 112/47 L Pulse Oximetry 96 Oxygen Delivery Nasal Cannula Oxygen Flow Rate 5 05/30/25 20:00 05/30/25 20:41 05/30/25 20:44 Temperature Pulse Rate 77 79 Respiratory Rate 18 Blood Pressure Pulse Oximetry 96 Oxygen Delivery Nasal Cannula Oxygen Flow Rate 4 05/30/25 21:45 05/30/25 22:00 05/31/25 00:00 Temperature 98.3 F Pulse Rate 78 79 68 Respiratory Rate 18 Blood Pressure 120/41 L Pulse Oximetry 98 Oxygen Delivery Oxygen Flow Rate 05/31/25 02:12 05/31/25 02:23 05/31/25 04:00 Temperature Pulse Rate 82 77 63 Respiratory Rate 18 Blood Pressure Pulse Oximetry Oxygen Delivery Oxygen Flow Rate 05/31/25 06:00 05/31/25 07:14 05/31/25 07:15 Temperature 98.3 F Pulse Rate 70 78 Respiratory Rate 18 18 Blood Pressure 133/49 L Pulse Oximetry 96 96 Oxygen Delivery Nasal Cannula Oxygen Flow Rate 4 05/31/25 07:25 05/31/25 08:00 05/31/25 08:00 Temperature Pulse Rate 83 73 Respiratory Rate 18 Blood Pressure Pulse Oximetry 95 Oxygen Delivery Nasal Cannula Oxygen Flow Rate 5 05/31/25 12:00 Temperature Pulse Rate 84 Respiratory Rate Blood Pressure Pulse Oximetry Oxygen Delivery Oxygen Flow Rate Intake/Output Intake/Output: Intake & Output 05/28/25 05/29/25 05/30/25 05/31/25 23:59 23:59 23:59 23:59 Intake Total 867.9 1597.9 Output Total 200 3750 Balance 667.9 -2152.1 Meds/Results Medications: Active Medications Generic Name Dose Route Start Last Admin Trade Name Freq PRN Reason Stop Dose Admin Acetaminophen 1,000 mg 05/30/25 20:49 05/30/25 21:45 Acetaminophen 500 Mg Tablet PO 1,000 mg Q6H PRN Administration Pain 1-3 or fever Acetylcysteine 200 mg 05/31/25 14:00 Acetylcysteine 20% Inhal Soln 800 Mg/4 Ml Vial INHALATION Q6HRT [facility] Acyclovir 400 mg 05/30/25 21:05 05/31/25 12:42 Acyclovir 400 Mg Tablet PO 400 mg TID GIOVANNY Administration Albuterol/Ipratropium 3 ml 05/31/25 08:00 05/31/25 13:21 Ipratropium 0.5 Mg/Albuterol Sulfate 2.5 Mg Ampul.Neb 3 Ml INHALATION 3 ml Q6HRT GIOVANNY Administration Aspirin 81 mg 05/31/25 09:00 05/31/25 08:12 Aspirin 81 Mg Enteric Tablet PO 81 mg DAILY GIOVANNY Administration Atorvastatin Calcium 80 mg 05/31/25 09:00 05/31/25 08:13 Atorvastatin 40 Mg Tablet PO 80 mg DAILY GIOVANNY Administration Baclofen 10 mg 05/30/25 20:49 Baclofen 10 Mg Tablet PO Q12H PRN muscle spasm Benzonatate 200 mg 05/31/25 09:00 Benzonatate 100 Mg Capsule PO TID PRN Cough Bupropion HCl 150 mg 05/30/25 21:10 05/31/25 08:31 Bupropion Hcl Sr (12 Hr) 150 Mg Tab PO 150 mg BID GIOVANNY Administration Enoxaparin Sodium 40 mg 05/31/25 09:00 05/31/25 08:13 Enoxaparin 40 Mg/0.4 Ml Syringe SUB-Q 40 mg DAILY GIOVANNY Administration Fenofibrate 145 mg 05/31/25 09:00 05/31/25 08:12 Fenofibrate Nanocrystallized 145 Mg Tablet PO 145 mg DAILY GIOVANNY Administration Furosemide 40 mg 05/31/25 09:00 05/31/25 08:12 Furosemide Inj 40 Mg/4 Ml Vial IV PUSH 40 mg DAILY GIOVANNY Administration Guaifenesin 1,200 mg 05/30/25 21:10 05/31/25 08:12 Guaifenesin 12 Hr 600 Mg Tabcr PO 1,200 mg Q12HR GIOVANNY Administration Hydroxyzine HCl 25 mg 05/30/25 20:49 05/31/25 12:42 Hydroxyzine Hcl 25 Mg Tablet PO 25 mg QID PRN Administration anxiety Azithromycin 500 mg/ Sodium 250 mls @ 250 mls/hr 05/31/25 15:00 Chloride IVPB Q24H [facility] Meropenem 1 gm/ Sodium 100 mls @ 200 mls/hr 05/31/25 09:00 05/31/25 09:00 Chloride IVPB Infused Q12H [facility] Infusion Linaclotide 290 mcg 05/31/25 06:30 05/31/25 05:43 Linaclotide 145 Mcg Capsule PO 290 mcg DAILY@0630 GIOVANNY Administration Loratadine 10 mg 05/30/25 21:06 Loratadine 10 Mg Tablet PO DAILY PRN allergies Lorazepam 0.5 mg 05/30/25 20:57 Lorazepam (*Crx) 0.5 Mg Tablet PO BID PRN anxiety Metoprolol Succinate 50 mg 05/30/25 21:10 05/30/25 21:45 Metoprolol Succinate Ext Rel 50 Mg Tabcr PO 50 mg HS GIOVANNY Administration Morphine Sulfate 30 mg 05/31/25 09:00 05/31/25 08:12 Morphine Sulfate (*Crx) 30 Mg Tabcr PO 30 mg QAM [facility] Administration Multivitamins Therapeutic 1 tablet 05/31/25 09:00 05/31/25 08:12 Multivitamins Therapeutic Tab (*Bkc) PO 1 tablet DAILY [facility] Administration Nitroglycerin 0.4 mg 05/30/25 20:57 Nitroglycerin Sl 0.4 Mg Tablet SUBLINGUAL Q5M PRN chest pain Non-Formulary Medication 200 mg 05/31/25 09:00 Sulindac PO 06/30/25 08:59 BID [facility] Pantoprazole Sodium 40 mg 05/31/25 09:00 05/31/25 08:12 Pantoprazole 40 Mg Tablet PO 40 mg QAM [facility] Administration Polyethylene Glycol 17 gm 05/30/25 20:49 Polyethylene Glycol 3350 17 Gm Powd.Pack PO QAM PRN Constipation Sertraline HCl 50 mg 05/31/25 09:00 05/31/25 08:12 Sertraline Hcl 50 Mg Tablet PO 50 mg DAILY [facility] Administration Simethicone 125 mg 05/30/25 20:49 Simethicone 125 Mg Chew Tab PO QID PRN Gas Sodium Chloride 6 ml 06/01/25 05:00 Sodium Chlor 3% 15 Ml Neb (Respiratory Therapy) INHALATION 06/03/25 05:01 DAILY@0500 [facility] Tamsulosin HCl 0.4 mg 05/30/25 21:15 05/31/25 12:42 Tamsulosin Hcl 0.4 Mg Capsule PO 0.4 mg BID [facility] Administration Tobramycin/Dexamethasone 1 drop 05/30/25 21:00 05/31/25 12:42 Tobramycin/Dexamethasone Op 2.5 Ml Btl EACH EYE 1 drop QID [facility] Administration Trazodone HCl 100 mg 05/30/25 21:00 05/30/25 21:46 Trazodone Hcl 50 Mg Tablet PO 100 mg HS GIOVANNY Administration Radiology Results: ITS Impressions Chest X-Ray 05/30/25 13:09 Impression: Probable mild pulmonary edema, worse in the right lung than left, versus possibly pneumonia. Correlate clinically. Small right pleural effusion. Labs Labs: Laboratory Results - last 24 hr 05/30/25 14:05 Influenza A (RT-PCR) Negative Influenza B (RT-PCR) Negative RSV (RT-PCR) Negative SARS-CoV-2 RNA (RT-PCR) Negative
--- NOTE | 2025-05-31 15:03 | PCRCNOTE ---
patient was already given his bronchodilator at 1320 today so the Mucoyst will be given with the next schedule treatment at 2000 tonight.
[2025-05-31 16:18] LABS: MRSA (PCR) NOT DETECTED (NOT DETECTE)
[2025-05-31] MEDS: AZITHROMYCIN IV 500 MG in SODIUM CHLORIDE 0.9% IV 250 ML IVPB (16:50)
[2025-05-31] MEDS: METOPROLOL SUCCINATE EXT REL 50 MG TABCR PO (20:45)
[2025-05-31] MEDS: ACETYLCYSTEINE 20% INHAL SOLN 800 MG/4 ML VIAL 200 MG INHALATION (20:51)
[2025-05-31] MEDS: ACETAMINOPHEN 500 MG TABLET 1000 MG PO (21:54)
[2025-06-01] VITALS (22 sets, daily range): BP systolic 104–135; BP diastolic 46–49; PULSE 68–88; RESP 12–18; TEMP 36.5–36.9; O2SAT 90–98
[2025-06-01] MEDS: ACETYLCYSTEINE 20% INHAL SOLN 800 MG/4 ML VIAL 200 MG INHALATION ×4 (03:00→21:42)
[2025-06-01] MEDS: IPRATROPIUM 0.5 MG/ALBUTEROL SULFATE 2.5 MG AMPUL.NEB 3 ML INHALATION ×4 (03:00→21:20)
[2025-06-01] MEDS: LINACLOTIDE 145 MCG CAPSULE 290 MCG PO (05:42)
[2025-06-01 05:47] LABS: NT Pro B Type Natriuretic Pept 402 pg/mL (19.9-100)
[2025-06-01 06:01] LABS: Procalcitonin 0.1 ng/mL
[2025-06-01] MEDS: FUROSEMIDE INJ 40 MG/4 ML VIAL IV PUSH (08:22)
[2025-06-01] MEDS: guaiFENesin 12 HR 600 MG TABCR 1200 MG PO ×2 (08:22→22:00)
[2025-06-01] MEDS: TAMSULOSIN HCL 0.4 MG CAPSULE PO ×2 (08:22→16:37)
[2025-06-01] MEDS: TOBRAMYCIN/DEXAMETHASONE OP 2.5 ML BTL 1 DROP EACH EYE ×4 (08:22→22:02)
[2025-06-01] MEDS: ASPIRIN 81 MG ENTERIC TABLET PO (08:22)
[2025-06-01] MEDS: MORPHINE SULFATE (*CRX) 30 MG TABCR PO (08:22)
[2025-06-01] MEDS: MEROPENEM 1 GM in SODIUM CHLORIDE 0.9% IV 100 ML 200 ML IVPB ×2 (08:23→22:02)
[2025-06-01] MEDS: buPROPion HCL SR (12 HR) 150 MG TAB PO ×2 (08:23→16:37)
[2025-06-01] MEDS: SERTRALINE HCL 50 MG TABLET PO (08:23)
[2025-06-01] MEDS: PANTOPRAZOLE 40 MG TABLET PO (08:23)
[2025-06-01] MEDS: FENOFIBRATE NANOCRYSTALLIZED 145 MG TABLET PO (08:23)
[2025-06-01] MEDS: ATORVASTATIN 40 MG TABLET 80 MG PO (08:23)
[2025-06-01] MEDS: MULTIVITAMINS THERAPEUTIC TAB (*BKC) 1 TABLET PO (08:23)
[2025-06-01] MEDS: ENOXAPARIN 40 MG/0.4 ML SYRINGE SUB-Q (08:23)
[2025-06-01] MEDS: ACYCLOVIR 400 MG TABLET PO ×3 (08:23→16:37)
--- NOTE | 2025-06-01 09:46 | P.PNPL_ITS ---
Progress Note: A&P Assessment and Plan (1) Acute on chronic respiratory failure with hypoxia: Code(s): J96.21 - Acute and chronic respiratory failure with hypoxia Status: Resolved Assessment and Plan: 04/28/2025: Home O2 assessment: Final recommendation was 2 L at rest and 5 L with activity. 05/31/25:05/31/2025: Patient has worsening dyspnea on exertion, worsening cough and phlegm production and worsening hypoxemia with no wheezing. He presented with a leukocytosis. I do not feel this is a COPD exacerbation. He does have chronic issues expectorating his phlegm and does persist. When I enter the room he was on 5 L nasal cannula saturations 99%. I decreased him to 4 L nasal cannula saturations were 94%. I decreased him to 2 L nasal cannula saturations were 92%. Patient with a history of SNEHA in sputum, multiple pulmonary infections requiring antibiotics on 02/25/2024, 04/10/2024, 09/08/2024, 10/04/2024, 11/04/2024, 11/20/2024, 12/02/2024, 03/02/2025, 04/25/2025, 05/12/2025, and 05/22/2025. Other comorbidities include COPD and history of fluid overload. Plan: Continue treatment for possible bacterial infection with meropenem to cover his Pseudomonas and Alcaligenes and azithromycin for atypical coverage. MRSA swab, If positive will add vancomycin. Respiratory pathogen panel, urine for Legionella, urine for pneumococcal studies ordered. Will place on continuous pulse ox. Goal saturation 90-94%. Adjust oxygen accordingly. Recommend transfer to [facility] to be evaluated by Infectious D isease and Pulmonary teams given multiple hospitalizations despite my best care. Accepted on 05/30/2025 no beds available. 06/01/25: Overall the patient says he feels a little bit better. He still short of breath at rest. His cough is back to his baseline with a small amount of phlegm. He denies hemoptysis, fever, chills, rigors. When I enter the room he was on 4 L nasal cannula saturations 99%. I decreased him to 2 L nasal cannula and after 10 minutes his saturations were 92%. BNP 402. Procalcitonin 0.1. diuresed 1.2 L yesterday, cumulative diuresis since admission 600 mL. Weight 71.6 with an admission weight of [address] scan of the chest compared to 05/12/2025 shows new peripheral dense consolidative infiltrates posterior segment of the right upper lobe, worsening consolidative infiltrate superior segment of the left lower lobe, worsening infiltrate right middle lobe, worsening infiltrate right lower lobe and worsening consolidative infiltrate posterior segment of the left lower lobe. Plan: Patient with progressive infiltrates and a CT scan despite multiple courses of outpatient antibiotics. Still concerned about MAC lung disease. Awaiting transfer to [facility] to be evaluated by Infectious Disease and Pulmonary teams. In the meantime treating for possible bacterial infection with azithromycin day 3, meropenem, day 2. Goal saturation 90-94%. Adjust oxygen accordingly. Will for other etiologies of infection. Respiratory pathogen panel, urine Legionella, urine pneumococcal, mycoplasma IgM. Will send ABPA profile to to [facility] including Aspergillus fumigatus IgE, Aspergillus fumigatus IgG, total IgE, CBC with differential. Will follow with you. 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 Patient with a history of SNEHA in sputum, multiple pulmonary infections requiring antibiotics on 02/25/2024, 04/10/2024, 09/08/2024, 10/04/2024, 11/04/2024, 11/20/2024, 12/02/2024, 03/02/2025, 04/25/2025, 05/12/2025, and 05/22/2025. Other comorbidities include COPD and history of fluid overload. Sputum on 12/15/2024 with AFB verified on 01/14/25 and grew SNEHA on 03/03/25. Sensitivities 03/20/25. On 03/20/25 patient referred to [facility] with appointment scheduled for 05/02/2025. Sputum on 12/16/2024 with AFB verified on 01/20/25 and grew SNEHA on 02/01/25.?Sensitivities 03/28/25. QuantiFERON gold was negative on 01/24/25. ORGANISM: MYCOBACTERIUM AVIUM COMPLEX AMIKACIN: 16 S mcg/mL AMIKACIN (LIPOSOMAL, INHALED): 16 S mcg/mL CIPROFLOXACIN: >8 mcg/mL CLARITHROMYCIN: 2 S mcg/mL CLOFAZIMINE: 0.25 mcg/mL DOXYCYCLINE: >8 mcg/mL LINEZOLID: 16 I mcg/mL MINOCYCLINE: >8 mcg/mL MOXIFLOXACIN: 4 R mcg/mL RIFABUTIN: 1 mcg/mL RIFAMPIN: >4 mcg/mL STREPTOMYCIN: >32 * This is a corrected result. * A prior result that was reported as final has been changed. 1. Mycobacterium avium complex M.I.C. RX --------- --- Rifampin AFB >4 S Streptomycin AFB R Amikacin AFB 16 S Moxifloxacin AFB R 04/25/2025: Recommended patient be transferred to [facility] so he could be evaluated by Infectious Disease team to determine if he needs active treatment for his SNEHA and if so which medicines would be recommended. 04/26/25: patient is afebrile today. Patient feels improved with ceftriaxone cam a azithromycin and Septra. Plan: I will send repeat sputum for AFB. Recommend transfer to [facility] to be evaluated by Infectious Disease team. Sputum on 04/27/2025 and 04/28/2025 AFB smear negative and no growth of AFB as of 05/31/25. 05/02/2025: Patient was seen at [facility] infectious Disease Clinic. We have contacted the clinic multiple times to get the note and have been unsuccessful. The patient tells me he has no idea what they said or recommended other than to follow-up in July. 05/31/25: patient with recurrent infectious episodes associated with hypoxemia which may or may not be related to SNEHA. Plan: Recommend transfer to [facility] so that he can be evaluated by the Infectious Disease team to determine if he needs treatment for SNEHA. Will send sputum for AFB x3. CT scan of the chest 06/01/25 compared to 05/12/2025 shows new peripheral dense consolidative infiltrates posterior segment of the right upper lobe, worsening consolidative infiltrate superior segment of the left lower lobe, worsening infiltrate right middle lobe, worsening infiltrate right lower lobe and worsening consolidative infiltrate posterior segment of the left lower lobe. Plan: Patient with progressive infiltrates and a CT scan despite multiple courses of inpatient and outpatient antibiotics. Still concerned about MAC lung disease. Awaiting transfer to [facility] to be assessed by Infectious Disease and Pulmonary teams. (3) Chronic obstructive pulmonary disease: Code(s): J44.9 - Chronic obstructive pulmonary disease, unspecified Status: Acute Assessment and Plan: Gold grade 2 group E COPD Regarding his COPD, patient with 60 pack year tobacco use quit in 2019, alpha 1 anti trypsin genotype MM, [id number] apical predominant centrilobular and paraseptal emphysema on his CT scan from 10/11/2021. Of note he has had COVID pneumonia on 09/10/2021 and Pseudomonas aeruginosa on 10/10/2021 and 04/26/2025. His PFTs from 12/16/2023 show mild obstruction with FEV1 68%, ratio 61%. No bronchodilator response, hyperinflation, severely decreased DLCO the remains mildly decreased when adjusted for alveolar volume. Compared to 01/01/2022 had been a significant decrease in the FVC, FEV1, total lung capacity, functional residual capacity and diffusing capacity. When admitted for pneumonia had an ABG on 02/25/2024 on 3 L nasal cannula 7.44/36/67. 10/04/2024: ABG on 2 L 7.43/41/75. 10/04/2024: White blood cell count 11.1 eosinophils 3.2%=355/uL. 04/09/2024 white blood cell count 11.1, eosinophils 0.4%=44/uL. Tested positive for COVID 11/13/2023 treated with Paxlovid, rebound symptoms treated with clarithromycin and doxycycline. Hospitalize 02/25/2024 for pneumonia with sputum showing Haemophilus treated with steroids. Hospitalized 04/10/24 to 04/12/24 for COPD exacerbation treated with prednisone and a zithromycin. 09/08/2024 cold symptoms, treated with doxycycline and prednisone taper. 10/04/2024 ED visit for shortness of breath treated for fluid overload and COPD exacerbation with prednisone and Augmentin. 11/04 admitted to [facility] with congestive heart failure and pneumonia no evidence of COPD exacerbation. 11/20 admitted to [facility] for shortness of breath, fluid overload and possible pneumonia. 12/02/2024 through 12/06/2024 admitted to [facility] treated for pneumonia. sputum from 12/17/2024 grew out Alcaligenes xylosoxidans sensitive to meropenem and Septra, intermediate to Zosyn, resistant to ceftaz, levofloxacin and imipenem. 03/02/2025 patient with increased phlegm production and treated for bronchitis with Septra DS 2 tablets twice a day x 7 days. 04/25/25 through 04/28/2025: admitted to [facility] for respiratory distress and hypoxemia. I spoke with the emergency room physician and requested that he be transferred to [facility] said he could be evaluated by an Infectious Disease team which we do not have at [facility]. Patient was referred to [facility] but no beds were available. In the meantime I recommended ceftriaxone, azithromycin and Septra. 04/26/25: a CT angiogram of the chest: I have compared this to CT scans from 11/20/2024 and 08/29/2024 and 02/25/2024. Current CT shows no PE, worsening consolidation and infiltrates in the right lower lobe compared to 11/20/2024 and 02/25/2024. Compared to CT scan on 02/25/2024 currently there are some areas of improved consolidation in the right lower lobe and some different areas with worsening consolidations in the right lower lobe. There is unchanged consolidation in the posterior left lower lobe with no change compared to 11/20/2024, 08/29/2024 and that have improved from 02/25/2024. Currently there are patchy consolidations in the right middle lobe some which were present on 11/20/2024 and some that are new. There were no infiltrates on 08/29/2024 in the right middle lobe. Modified barium swallow normal. Sputum has grown out normal chico. 04/28/2025: Home O2 assessment: Final recommendation was 2 L at rest and 5 L with activity. discharged on cefdinir x3 days, azithromycin x2 days, Septra 2 tablets p.o. b.i.d. x3 days, but of SP, guaifenesin 1200 b.i.d., Lasix 20 p.o. q.day, 4 L at night. After discharge respiratory pathogen panel was positive for human metapneumovirus. He was to be evaluated with [facility] on 05/02/2025. sputum for AFB collected on 04/27/2025 and 04/28/2025. 05/12/2025: Seen in the emergency department for progressively worse shortness of breath, sputum production, BNP 3300, COVID, influenza, RSV RT PCR negative. ABG 7.39/40/88 on 2 L nasal cannula. prescribed Septra 1 tablet p.o. q.12 hours x7 days 05/22/2025: Patient called his PCP coughing all day with a little bit of phlegm raspy throat. levofloxacin 750 q.day prescribed X 10 days. 05/31/2025: Patient has worsening dyspnea on exertion, worsening cough and phlegm production and worsening hypoxemia with no wheezing. He presented with a leukocytosis. I do not feel this is a COPD exacerbation. He does have chronic issues expectorating his phlegm and does persist. Plan: DuoNebs q.6 hours, guaifenesin 1200 mg p.o. q.12 hours, Claritin 10 mg p.o. q.day, I will add Mucomyst q.6 hours, coronary flutter valve and vest therapy twice a day. 06/01/25: Patient with minimally improved. No wheezing on exam. He has minimal phlegm production. Plan: DuoNebs q.6 hours, guaifenesin 1200 mg p.o. q.12 hours, Claritin 10 mg p.o. q.day, Mucomyst q.6 hours, coronary flutter valve and vest therapy twice a day. Subjective Date/time seen: 06/01/25 09:46 Interval history: 05/30/25: This is a new pulmonary consult for COPD and MAC. 80-year-old with a history of coronary artery disease status post non ST elevation [place] August of 2019, ischemic cardiomyopathy, hypertension, hyperlipidemia, Gold grade 2 group B COPD on home oxygen 7 L at rest, with activity and with sleep and MAC lung disease. Regarding his COPD, patient with 60 pack year tobacco use quit in 2019, alpha 1 anti trypsin genotype MM, [id number] apical predominant centrilobular and paraseptal emphysema on his CT scan from 10/11/2021. Of note he has had COVID pneumonia on 09/10/2021 and Pseudomonas aeruginosa on 10/10/2021, and 04/26/2025. His PFTs from 12/16/2023 show mild obstruction with FEV1 68%, ratio 61%. No bronchodilator response, hyperinflation, severely decreased DLCO the remains mildly decreased when adjusted for alveolar volume. Compared to 01/01/2022 had been a significant decrease in the FVC, FEV1, total lung capacity, functional residual capacity and diffusing capacity. When admitted for pneumonia had an ABG on 02/25/2024 on 3 L nasal cannula 7.44/36/67. 10/04/2024: ABG on 2 L 7.43/41/75. 10/04/2024: White blood cell count 11.1 eosinophils 3.2%=355/uL. 04/09/2024 white blood cell count 11.1, eosinophils 0.4%=44/uL. Tested positive for COVID 11/13/2023 treated with Paxlovid, rebound symptoms treated with clarithromycin and doxycycline. Hospitalize 02/25/2024 for pneumonia with sputum showing Haemophilus treated with steroids. Hospitalized 04/10/24 to 04/12/24 for COPD exacerbation treated with prednisone and azithromycin. 09/08/2024 cold symptoms, treated with doxycycline and prednisone taper. 10/04/2024 ED visit for shortness of breath treated for fluid overload and COPD exacerbation with prednisone and Augmentin. 11/04 admitted to [facility] with congestive heart failure and pneumonia no evidence of COPD exacerbation. 11/20 admitted to [facility] for shortness of breath, fluid overload and possible pneumonia. 12/02/2024 through 12/06/2024 admitted to [facility] treated for pneumonia. sputum from 12/17/2024 grew out Alcaligenes xylosoxidans sensitive to meropenem and Septra, intermediate to Zosyn, resistant to ceftaz, levofloxacin and imipenem. 03/02/2025 patient with increased phlegm production and treated for bronchitis with Septra DS 2 tablets twice a day x 7 days. 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 Sputum on 12/15/2024 with AFB verified on 01/14/25 and grew SNEHA on 4/11/25. Sensitivities 03/20/25. On 03/20/25 patient referred to [facility] with appointment scheduled for 05/02/2025. Sputum on 12/16/2024 with AFB verified on 01/20/25 and grew SNEHA on 02/01/25.?Sensitivities 03/28/25. QuantiFERON gold was negative on 01/24/25. Sputum on 04/27/2025 and 04/28/2025 AFB smear negative, cultures pending. Patient was treated for bronchitis on 03/02/2025 and improved with Septra. He was at his baseline which is dyspnea on exertion at 50-75 feet. He is using 7 L at rest, with saturations 95-97% at home. He is using 7 L with activity with saturations 92%. He is using 7 L at night. He typically has no daily fevers. He coughs phlegm 2 times a day which is described as lynn. Patient tells me he was at his baseline on 04/24/2020 5. On 04/25/2025 he developed a fever, increased cough, worsening dyspnea on exertion with the same amount of phlegm. Family reported some confusion. He was brought to the emergency department. 04/25/25 through 04/28/2025: admitted to [facility] for respiratory distress and hypoxemia. I spoke with the emergency room physician and requested that he be transferred to [facility] said he could be evaluated by an Infectious Disease team which we do not have at [facility]. Patient was referred to [facility] but no beds were available. In the meantime I recommended ceftriaxone, azithromycin and Septra. 04/26/25: a CT angiogram of the chest: I have compared this to CT scans from 11/20/2024 and 08/29/2024 and 02/25/2024. Current CT shows no PE, worsening consolidation and infiltrates in the right lower lobe compared to 11/20/2024 and 02/25/2024. Compared to CT scan on 02/25/2024 currently there are some areas of improved consolidation in the right lower lobe and some different areas with worsening consolidations in the right lower lobe. There is unchanged consolidation in the posterior left lower lobe with no change compared to 11/20/2024, 08/29/2024 and that have improved from 02/25/2024. Currently there are patchy consolidations in the right middle lobe some which were present on 11/20/2024 and some that are new. There were no infiltrates on 08/29/2024 in the right middle lobe. Modified barium swallow normal. Sputum has grown out normal chico. 04/28/2025: Home O2 assessment: Final recommendation was 2 L at rest and 5 L with activity. discharged on cefdinir x3 days, azithromycin x2 days, Septra 2 tablets p.o. b.i.d. x3 days, but of SP, guaifenesin 1200 b.i.d., Lasix 20 p.o. q.day, 4 L at night. After discharge respiratory pathogen panel was positive for human metapneumovirus. He was to be evaluated with [facility] on 05/02/2025. sputum for AFB collected on 04/27/2025 and 04/28/2025. 05/02/2025: Patient was seen at [facility] infectious Disease Clinic. We have contacted the clinic multiple times to get the note and have been unsuccessful. The patient tells me he has no idea what they said or recommended other than to follow-up in July. 05/12/2025: Seen in the emergency department for progressively worse shortness of breath, sputum production, BNP 3300, COVID, influenza, RSV RT PCR negative. ABG 7.39/40/88 on 2 L nasal cannula. prescribed Septra 1 tablet p.o. q.12 hours x7 days 05/22/2025: Patient called his PCP coughing all day with a little bit of phlegm raspy throat. levofloxacin 750 q.day prescribed X 10 days. 05/29/25: I spoke to the patient and usually is on 2 L at rest and 5 with activit y. I spoke to the patient today and he is on 4-5 L at rest with saturations 87%. His saturations with 5 L activity are in the mid 80s. He says he has not gained weight and is not swollen. He has finished 10 days of antibiotics through his PCP. I recommended the patient be evaluated in the emergency department and I recommended that he go to [facility] emergency department so that he could be evaluated by their Pulmonary team and their Infectious Disease team. He voiced understanding. 05/30/2025: Patient presented to [facility] ED with complaints of shortness of breath, exertional hypoxemia. He finished his outpatient Levaquin today. blood pressure 112/47, heart rate 79, saturation 96% on 4 L nasal cannula. Afebrile, creatinine 1.13. White blood cell count 11.8. I spoke to the emergency room and recommended he be transferred to [facility] to be evaluated by the Infectious Disease team and pulmonary team. Patient was accepted but no beds available. MRSA swab negative. Started on ceftriaxone, azithromycin and Septra. Patient given Lasix 40 IV x1. 05/31/2025: Currently the patient tells me he is breathing at his baseline at rest. He has worsening dyspnea on exertion. His cough and phlegm production or better than yesterday. He denies fever, chills, rigors, sweats. He has no hemoptysis. He has no worsening orthopnea, he has stable nocturia every 2 hours at home. When I enter the room he was on 5 L nasal cannula saturations 99%. I decreased him to 4 L nasal cannula saturations were 94%. I decreased him to 2 L nasal cannula saturations were 92%. 06/01/25: Overall the patient says he feels a little bit better. He still short of breath at rest. His cough is back to his baseline with a small amount of phlegm. He denies hemoptysis, fever, chills, rigors. When I enter the room he was on 4 L nasal cannula saturations 99%. I decreased him to 2 L nasal cannula and after 10 minutes his saturations were 92%. BNP 402. Procalcitonin 0.1. diuresed 1.2 L yesterday, cumulative diuresis since admission 600 mL. Weight 71.6 with an admission weight of [address] scan of the chest compared to 05/12/2025 shows new peripheral dense consolidative infiltrates posterior segment of the right upper lobe, worsening consolidative infiltrate superior segment of the left lower lobe, worsening infiltrate right middle lobe, worsening infiltrate right lower lobe and worsening consolidative infiltrate posterior segment of the left lower lobe. DATA 04/26/2025: EXAMINATION: CTA chest PE protocol DATE: 04/26/2025 13:46 CDT INDICATION: Shortness of breath TECHNIQUE: Computed tomographic angiography (CTA) of the chest was performed with 100 mL Omnipaque-350 intravenous contrast. The dose-length product was 256.22 mGy-cm. Maximum intensity projection 3D-reconstructions of the aorta and other arteries were constructed by the technologist on a separate workstation. Automated exposure control and iterative reconstruction technique were employed. COMPARISON: Chest x-ray dated 04/25/[address] dated 11/20/2024. FINDINGS: Small right pleural effusion. Trace left pleural effusion. There is mediastinal lymphadenopathy. There is right hilar lymphadenopathy. There is atherosclerosis of the aorta and coronary arteries. Small hiatal hernia. Heart size normal. Pulmonary arteries are enlarged, consistent with pulmonary hypertension. Study is technically adequate without evidence for pulmonary embolism. There is patchy bilateral airspace disease of the right upper, right middle and bilateral lower lobes, consistent with multifocal pneumonia. No endobronchial lesions. There is emphysema. No suspicious pulmonary nodules or masses. Mild thoracic spondylosis. No focal lytic or blastic lesions. IMPRESSION: 1. Multifocal airspace disease, consistent with pneumonia. 2: Bilateral pleural effusions, right greater than left. 3: Mediastinal lymphadenopathy, likely reactive. 4.: Pulmonary artery enlargement, consistent with pulmonary hypertension. 5: Emphysema. My read: I have compared this to CT scans from 11/20/2024 and 08/29/2024 and 02/25/2024. Current CT shows no PE, , Small right pleural effusion, worsening consolidation and infiltrates in the right lower lobe compared to 11/20/2024 and 02/25/2024. Compared to CT scan on 02/25/2024 currently there are some areas of improved consolidation in the right lower lobe and some different areas with worsening consolidations in the right lower lobe. There is unchanged consolidation in the posterior left lower lobe with no change compared to 11/20/2024, 08/29/2024 and that have improved from 02/25/2024. Currently there are patchy consolidations in the right middle lobe some which were present on 11/20/2024 and some that are new. There were no infiltrates on 08/29/2024 in the right middle lobe. 01/02/25:? Modified barium swallow:? Impression:? Moderate dysphagia 11/20/24: EXAMINATION:.? Recommendations: Regular but easy to chew diet with regular liquids but patient must use chin tuck posture with all eating and drinking to prevent pharyngeal residual and instances of laryngeal penetration and aspiration.? He was referral to outpatient speech therapy. 12/14/24:? CRP 3.6, ESR 134,? CPK 43, Aspergillus Niger IgE 0.31, very low level.? Aspergillus Niger antibody negative, Aspergillus flatus antibody negative.? Aspergillus fumigatus antibody negative.? Rheumatoid factor 12.9, anti CCP antibody less than 16.? TERRA screen positive with an anti-DNA antibody 27 (positive greater than 10), Anca screen negative, hypersensitivity pneumonitis panel negative.? 01/24/2025:? QuantiFERON gold negative.? IgE 691 normal less than 114, rheumatoid factor 12.9. IgG 693, IgM 90, IgA 212, all normal.? Aldolase 5.0 ?CTA chest PE protocol INDICATION: Hypoxia elevated d-dimer COMPARISON: 08/29/2024 and 10/11/2021. FINDINGS: No filling defects within the main or proximal pulmonary arteries. The thoracic aorta is unremarkable. No aneurysmal dilatation or dissection. The heart is of normal size, without pericardial effusion. Panlobular emphysematous disease is identified. Patchy groundglass opacification detected bilaterally. Small bilateral pleural effusions with adjacent compressive atelectasis Multiple subcentimeter areas of decreased attenuation within the liver, unchanged dating back to 10/11/2021. IMPRESSION: No pulmonary embolus. No aneurysmal dilatation or dissection within the thoracic aorta. Small bilateral pleural effusions with adjacent compressive atelectasis. 08/16/2024: Overnight oximetry on 3 L nasal cannula. The report in the computer status overnight oximetry on room air but this is mislabeled as the test was performed on 3 L. Recording duration 8 hours and 39 minutes. Basal saturation 92.1%. High saturation 96%. Low saturation 79%. Time with saturation less than or equal to 88% was 4 minutes and 58 seconds. I will continue oxygen 3 L at night. 06/24/2024: This is a 6 minute walk test. The test was performed and interpreted in accordance with the 2014 ERS/ATS task force guidelines. Of note, patient used to wheeled walker for stability and the testing was performed on his home portable oxygen concentrator at 3 L with pulse dose. Findings: The patient's resting 3 L oxygen saturation measured by pulse oximetry was 95% and heart rate was 80 bpm. Patient ambulated for 137 meters and oxygen saturation remained 91 to 92%. Heart rate at the end of the study was 94 bpm. The patient did not have rest or exertional hypoxemia on 3 L nasal cannula pulse dose with his portable oxygen concentrator. 02/25/24 - CTA chest (ER) - No PE identified. 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 There is patchy consolidation in the right middle and bilateral lower lobes with additional regions of tree-in-bud opacity scattered throughout both lungs consistent with multifocal pneumonia. There is associated bronchial wall thickening and mucous plugging in the bilateral lower lobes. Tiny left pleural effusion. No septal line thickening to suggest pulmonary edema. No pneumothorax. Mild cardiomegaly. Atherosclerotic coronary artery calcifications. No pericardial effusion. 02/25/2024: ABG on 4 L cannula 7.39/35/63 01/15/24 - Home O2 eval - Required 2L/min O2 with ambulation and none at rest. 12/16/23 - PFT The test was performed and results interpreted in accordance with the 2019 and 2005 ATS/ERS Task Force guidelines respectively using the Global Lung Function Initiative-2012 reference equations. Patient demonstrated good effort and cooperation. Reproducibility criteria were met. The quality of the pre bronchodilator spirometry maneuver was Grade A and post bronchodilator spirom etry maneuver was Grade A. Findings: Spirometry:? There is decreased maximal expiratory airflow at all lung volumes with concave expiratory flow tracing.? The contour the inspiratory flow tracing is normal.? The pre bronchodilator FVC is 3.33 L, 82% predicted.? The pre bronchodilator FEV1 is 2.02 L, 68% predicted.? The pre bronchodilator FEV1: FVC ratio 61%.? The post bronchodilator FVC is 3.41 L, representing a 2% increase.? The post bronchodilator FEV1 is 2.09 L, representing a 3% increase.? The post bronchodilator FEV1:? FVC ratio 61%.? Plethysmography:? The total lung capacity is 6.43 L, 89% predicted.? The functional residual capacity is 4.14 L, 106% predicted.? The residual volume is 3.10 L, 115% predicted.? The residual volume:? Total lung capacity ratio is 48%.? Diffusing capacity:? The diffusing capacity unadjusted for hemoglobin and carboxyhemoglobin is 9.0, 37% predicted.? The diffusing capacity adjusted for alveolar volume is 2.29, 64% predicted. Comparison to previous pulmonary function testing on 01/01/2022 the post bronchodilator FVC has decreased from 4.38 L to 3.41 L.? The post bronchodilator FEV1 has decreased from 3.11 L to 2.09 L. the total lung capacity is decreased from 7.39 L to 6.43 L.? The functional residual capacity has decreased from 4.95 L to 4.14 L.? The residual volume is unchanged from 2.93 L to 3.10 L.? The diffusing capacity unadjusted for hemoglobin and carboxyhemoglobin is decreased from 14.9 to 9.0.? The diffusing capacity adjusted for alveolar volume decreased from 2.63 to 2.29 Impression: There is a mild obstructive abnormality. There is no significant improvement after inhaling a single dose of albuterol.? The increase in residual volume to total lung volume ratio is consistent with hyperinflation from an obstructive abnormality.? The diffusing capacity unadjusted for hemoglobin and carboxyhemoglobin is severely decreased and remains mildly decreased when adjusted for alveolar volume. Compared to prior pulmonary function testing on 01/01/2022 there has been a significant decrease in the FVC, FEV1, total lung capacity, functional residual capacity and diffusing capacity with no significant change in the residual volume. 09/16/23 - Home O2 eval - Required 2L/min O2 with ambulation and none at rest. 01/01/22 - Home O2 eval - Patient did not require supplemental oxygen at rest or with exertion. 01/01/22 - PFTs - Mild obstructive abnormality with normal FEV1 without significant improvement after inhaling a single dose of albuterol. Lung volumes normal. The diffusing capacity unadjusted for hemoglobin is moderately decreased and normalizes when adjusted for alveolar volume. 12/18/21 - Overnight oximetry on room air - Time with saturation less than or equal to 88% was 4.0 minutes. Patient does not qualify for supplemental oxygen at night. 10/10/2021 - ABG on 4L NC - 7.44/43/70. 10/20/21 - Chest XR - Persistent patchy bilateral airspace disease with possible improvement in the left lung, compatible with pneumonia. 10/11/2021 - CTA chest - Extensive bilateral pulmonary infiltrates and likely reactive hilar or mediastinal adenopathy. Small right pleural effusion. No evidence of pulmonary embolism. 10/11/2021 - Echo - LV systolic function mildly reduced, EF 45-50%. Grade I diastolic dysfunction. The inferior wall, inferoseptal wall, basal inferolateral wall, and mid inferolateral wall are hypokinetic. Mild LA enlargement. No pulmonary hypertension. Review of Systems Constitutional: Constitutional: Reports no additional constitutional complaints Eyes: Eyes: Reports no additional eye complaints ENT: Reports system reviewed and no additional complaints, except as documented Cardiovascular: Cardiovascular: Reports no additional cardiovascular complaints Respiratory: Respiratory: Reports no additional respiratory complaints Gastrointestinal: Gastrointestinal: Reports no additional gastrointestinal complaints Musculoskeletal: Musculoskeletal: Reports no additional musculoskeletal complaints Neurologic: Reports system reviewed and no additional complaints, except as documented Psychiatric: Psychiatric: Reports no additional psychiatric complaints Endocrine: Endocrine: Reports no additional endocrine complaints Hematologic/Lymphatic: Hematologic/Lymphatic: Reports no additional hematologic/lymphatic complaints Allergic/Immunologic: Allergic/Immunologic: Reports no additional allergic/immunologic complaints Exam Const: General: cooperative, healthy appearing and comfortable Orientation/consciousness: oriented to person, oriented to place and oriented to time [facility]: Head: normal to inspection Ears: hearing grossly normal bilaterally Eyes: General: appearance normal, both eyes and all related structures Neck: Neck: normal visual inspection Chest: Chest palpation & inspection: normal inspection of the chest Resp: Effort & Inspection: normal respiratory effort and able to speak in complete sentences Auscultation: no crackles, no rales, no rhonchi, no wheezes and lung sounds not diminished Other: Crackles and rhonchi throughout. No wheezes. Cardio: Jugular venous distension: no JVD GI: Inspection: normal to inspection Skin: General skin exam: normal color Neuro: General: oriented to person, oriented to place and oriented to time Extrem: General: normal to inspection Psych: Appearance: grossly normal Objective Data Vital Signs Vital Signs: Vital Signs - 24 hr 05/31/25 12:00 05/31/25 13:25 05/31/25 13:35 Temperature Pulse Rate 84 77 78 Respiratory Rate 18 18 Blood Pressure Pulse Oximetry Oxygen Delivery Oxygen Flow Rate 05/31/25 14:00 05/31/25 16:00 05/31/25 20:00 Temperature 36.8 C Pulse Rate 88 90 Respiratory Rate 16 Blood Pressure 105/40 L Pulse Oximetry 94 93 Oxygen Delivery Nasal Cannula Oxygen Flow Rate 5 05/31/25 20:00 05/31/25 20:54 05/31/25 20:54 Temperature Pulse Rate 84 85 85 Respiratory Rate 18 Blood Pressure Pulse Oximetry 93 Oxygen Delivery Nasal Cannula Oxygen Flow Rate 3 05/31/25 21:06 05/31/25 22:00 06/01/25 00:00 Temperature 36.9 C Pulse Rate 81 81 80 Respiratory Rate 18 16 Blood Pressure 117/42 L Pulse Oximetry 93 Oxygen Delivery Oxygen Flow Rate 06/01/25 03:02 06/01/25 03:10 06/01/25 04:00 Temperature Pulse Rate 74 75 78 Respiratory Rate 16 16 Blood Pressure Pulse Oximetry Oxygen Delivery Oxygen Flow Rate 06/01/25 06:00 06/01/25 07:44 06/01/25 07:44 Temperature 36.8 C Pulse Rate 75 68 Respiratory Rate 18 16 Blood Pressure 123/49 L Pulse Oximetry 96 97 Oxygen Delivery Nasal Cannula Oxygen Flow Rate 4 06/01/25 08:02 Temperature Pulse Rate 72 Respiratory Rate 16 Blood Pressure Pulse Oximetry Oxygen Delivery Oxygen Flow Rate Intake/Output Intake/Output: Intake & Output 05/29/25 05/30/25 05/31/25 06/01/25 23:59 23:59 23:59 23:59 Intake Total 867.9 3375.8 300 Output Total 200 4650 1100 Balance 667.9 -1274.2 -800 Meds/Results Medications: Active Medications Generic Name Dose Route Start Last Admin Trade Name Freq PRN Reason Stop Dose Admin Acetaminophen 1,000 mg 05/30/25 20:49 05/31/25 21:54 Acetaminophen 500 Mg Tablet PO 1,000 mg Q6H PRN Administration Pain 1-3 or fever Acetylcysteine 200 mg 05/31/25 14:00 06/01/25 07:42 Acetylcysteine 20% Inhal Soln 800 Mg/4 Ml Vial INHALATION 200 mg Q6HRT GIOVANNY Administration Acyclovir 400 mg 05/30/25 21:05 06/01/25 08:23 Acyclovir 400 Mg Tablet PO 400 mg TID GIOVANNY Administration Albuterol/Ipratropium 3 ml 05/31/25 08:00 06/01/25 07:42 Ipratropium 0.5 Mg/Albuterol Sulfate 2.5 Mg Ampul.Neb 3 Ml INHALATION 3 ml Q6HRT GIOVANNY Administration Aspirin 81 mg 05/31/25 09:00 06/01/25 08:22 Aspirin 81 Mg Enteric Tablet PO 81 mg DAILY GIOVANNY Administration Atorvastatin Calcium 80 mg 05/31/25 09:00 06/01/25 08:23 Atorvastatin 40 Mg Tablet PO 80 mg DAILY GIOVANNY Administration Baclofen 10 mg 05/30/25 20:49 Baclofen 10 Mg Tablet PO Q12H PRN muscle spasm Benzonatate 200 mg 05/31/25 09:00 Benzonatate 100 Mg Capsule PO TID PRN Cough Bupropion HCl 150 mg 05/30/25 21:10 06/01/25 08:23 Bupropion Hcl Sr (12 Hr) 150 Mg Tab PO 150 mg BID GIOVANNY Administration Enoxaparin Sodium 40 mg 05/31/25 09:00 06/01/25 08:23 Enoxaparin 40 Mg/0.4 Ml Syringe SUB-Q 40 mg DAILY GIOVANNY Administration Fenofibrate 145 mg 05/31/25 09:00 06/01/25 08:23 Fenofibrate Nanocrystallized 145 Mg Tablet PO 145 mg DAILY GIOVANNY Administration Furosemide 40 mg 05/31/25 09:00 06/01/25 08:22 Furosemide Inj 40 Mg/4 Ml Vial IV PUSH 40 mg DAILY GIOVANNY Administration Guaifenesin 1,200 mg 05/30/25 21:10 06/01/25 08:22 Guaifenesin 12 Hr 600 Mg Tabcr PO 1,200 mg Q12HR GIOVANNY Administration Hydroxyzine HCl 25 mg 05/30/25 20:49 05/31/25 21:54 Hydroxyzine Hcl 25 Mg Tablet PO 25 mg QID PRN Administration anxiety Azithromycin 500 mg/ Sodium 250 mls @ 250 mls/hr 05/31/25 15:00 05/31/25 17:50 Chloride IVPB Infused Q24H GIOVANNY Infusion Meropenem 1 gm/ Sodium 100 mls @ 200 mls/hr 05/31/25 09:00 06/01/25 08:23 Chloride IVPB 200 mls/hr Q12H GIOVANNY Administration Linaclotide 290 mcg 05/31/25 06:30 06/01/25 05:42 Linaclotide 145 Mcg Capsule PO 290 mcg DAILY@0630 GIOVANNY Administration Loratadine 10 mg 05/30/25 21:06 Loratadine 10 Mg Tablet PO DAILY PRN allergies Lorazepam 0.5 mg 05/30/25 20:57 Lorazepam (*Crx) 0.5 Mg Tablet PO BID PRN anxiety Metoprolol Succinate 50 mg 05/30/25 21:10 05/31/25 20:45 Metoprolol Succinate Ext Rel 50 Mg Tabcr PO 50 mg HS GIOVANNY Administration Morphine Sulfate 30 mg 05/31/25 09:00 06/01/25 08:22 Morphine Sulfate (*Crx) 30 Mg Tabcr PO 30 mg QAM GIOVANNY Administration Multivitamins Therapeutic 1 tablet 05/31/25 09:00 06/01/25 08:23 Multivitamins Therapeutic Tab (*Bkc) PO 1 tablet DAILY GIOVANNY Administration Nitroglycerin 0.4 mg 05/30/25 20:57 Nitroglycerin Sl 0.4 Mg Tablet SUBLINGUAL Q5M PRN chest pain Non-Formulary Medication 200 mg 05/31/25 09:00 Sulindac PO 06/30/25 08:59 BID GIOVANNY Pantoprazole Sodium 40 mg 05/31/25 09:00 06/01/25 08:23 Pantoprazole 40 Mg Tablet PO 40 mg QAM GIOVANNY Administration Polyethylene Glycol 17 gm 05/30/25 20:49 Polyethylene Glycol 3350 17 Gm Powd.Pack PO QAM PRN Constipation Sertraline HCl 50 mg 05/31/25 09:00 06/01/25 08:23 Sertraline Hcl 50 Mg Tablet PO 50 mg DAILY GIOVANNY Administration Simethicone 125 mg 05/30/25 20:49 Simethicone 125 Mg Chew Tab PO QID PRN Gas Sodium Chloride 6 ml 06/01/25 05:00 Sodium Chlor 3% 15 Ml Neb (Respiratory Therapy) INHALATION 06/03/25 05:01 DAILY@0500 GIOVANNY Tamsulosin HCl 0.4 mg 05/30/25 21:15 06/01/25 08:22 Tamsulosin Hcl 0.4 Mg Capsule PO 0.4 mg BID GIOVANNY Administration Tobramycin/Dexamethasone 1 drop 05/30/25 21:00 06/01/25 08:22 Tobramycin/Dexamethasone Op 2.5 Ml Btl EACH EYE 1 drop QID GIOVANNY Administration Trazodone HCl 100 mg 05/30/25 21:00 05/31/25 21:54 Trazodone Hcl 50 Mg Tablet PO 100 mg HS GIOVANNY Administration Radiology Results: ITS Impressions Chest X-Ray 05/30/25 13:09 Impression: Probable mild pulmonary edema, worse in the right lung than left, versus possibly pneumonia. Correlate clinically. Small right pleural effusion. Labs Labs: Laboratory Results - last 24 hr 05/31/25 05/31/25 05/31/25 14:58 15:00 15:02 NT-Pro-B Natriuret Pep Procalcitonin Nasal MRSA (PCR) Not detected Nasal RSV Type A (PCR) Cancelled Nasal RSV Type B (PCR) Cancelled Chlamy pneumoniae PCR Cancelled Adenovirus DNA Cancelled Human Bocavirus (DEMETRI) Cancelled Coronavirus Type OC43 Cancelled Coronavirus Type HKU1 Cancelled Coronavirus Type 229E Cancelled Coronavirus Type NL63 Cancelled Human Metapneumovir PCR Cancelled Influenza A (PCR) Cancelled Influenza A (H1) RNA Cancelled Influenza A (H3) PCR Cancelled Ur L.pneumophila Ag Cancelled M. pneumoniae DNA Cancelled Parainfluenza PCR Cancelled Parainfluenza 2 (PCR) Cancelled Parainfluenza 3 RNA (PCR) Cancelled Parainfluenza 4 (PCR) Cancelled Rhino/Enterovirus (DEMETRI) Cancelled SARS-CoV-2 RNA (RT-PCR) Cancelled Urine Pneumococcal Ag Cancelled Influenza Type B (PCR) Cancelled Misc Test Comment Cancelled 06/01/25 05:16 NT-Pro-B Natriuret Pep 402 H Procalcitonin 0.1 Nasal MRSA (PCR) Nasal RSV Type A (PCR) Nasal RSV Type B (PCR) Chlamy pneumoniae PCR Adenovirus DNA Human Bocavirus (DEMETRI) Coronavirus Type OC43 Coronavirus Type HKU1 Coronavirus Type 229E Coronavirus Type NL63 Human Metapneumovir PCR Influenza A (PCR) Influenza A (H1) RNA Influenza A (H3) PCR Ur L.pneumophila Ag M. pneumoniae DNA Parainfluenza PCR Parainfluenza 2 (PCR) Parainfluenza 3 RNA (PCR) Parainfluenza 4 (PCR) Rhino/Enterovirus (DEMETRI) SARS-CoV-2 RNA (RT-PCR) Urine Pneumococcal Ag Influenza Type B (PCR) Misc Test Comment
--- NOTE | 2025-06-01 11:06 | PM.IMPN ---
Progress Note: A&P Assessment and Plan (1) Combined systolic and diastolic congestive heart failure: Qualifiers: Heart failure chronicity: acute on chronic Qualified Code(s): I50.43 - Acute on chronic combined systolic (congestive) and diastolic (congestive) heart failure Code(s): I50.40 - Unspecified combined systolic (congestive) and diastolic (congestive) heart failure Status: Acute (2) Pneumonia: Qualifiers: Pneumonia type: due to unspecified organism Laterality: right Lung location: unspecified part of lung Qualified Code(s): J18.9 - Pneumonia, unspecified organism Code(s): J18.9 - Pneumonia, unspecified organism Status: Acute (3) Dyspnea on exertion: Code(s): R06.09 - Other forms of dyspnea Status: Acute (4) SNEHA (mycobacterium avium-intracellulare): Code(s): A31.0 - Pulmonary mycobacterial infection Status: Acute (5) Chronic hypoxic respiratory failure, on home oxygen therapy: Code(s): J96.11 - Chronic respiratory failure with hypoxia; Z99.81 - Dependence on supplemental oxygen Status: Acute (6) Chronic pulmonary aspergillosis: Code(s): B44.1 - Other pulmonary aspergillosis Status: Acute Plan Acute respiratory failure with hypoxemia Community-acquired pneumonia History of polymicrobial infections in the past. Pulmonology has been consulted. Continue Rocephin 2 g IV daily, 500 mg of azithromycin and Bactrim. Blood cultures have been obtained and are pending. Flu RSV and COVID PCR were negative. continue scheduled nebulizers. Chronic patient is on 4 L oxygen Acute on chronic combined heart failure Patient has dyspnea X-ray shows pulmonary congestion Echocardiogram on echocardiogram October 2024 Left ventricular systolic function is mildly reduced with an ejection fraction by Biplane Method of Discs of 49 %. left ventricular wall motion shows inf hypokinesis. The left ventricular diastolic function is grade I diastolic dysfunction. Received furosemide 40 mg IV push once on furosemide 40 mg IV daily Follow-up input output Patient has negative imbalance 310ml L today f/u BMP Patient is on waiting list to be transferred to [facility] Subjective Date/time seen: 06/01/25 11:06 Interval history: I saw examined patient today. Patient feels comfortable in chair. Patient has general weakness, denies focal weakness, headache, slurred speech. Patient still has cough with scant phlegm. Exam Narrative: GENERAL: Pleasant, in no acute distress. Well-nourished. - EYES: EOMI. Anicteric. - HENT: Moist mucous membranes. - LUNGS: Coarse breath sound bilaterally. - CARDIOVASCULAR: Regular rate and rhythm. No murmur. No JVD. - ABDOMEN: Soft, non-tender and non-distended. No palpable masses. - EXTREMITIES: No edema. Peripheral pulses 2+. Non-tender. - NEUROLOGIC: No focal neurological deficits. CN II-XII grossly intact. - PSYCHIATRIC: Awake, Alert and oriented x 3. Appropriate mood and affect. - SKIN: No rashes or lesions. Warm. - LYMPH: No cervical lymphadenopathy. Objective Data Vital Signs Vital Signs: Vital Signs - 24 hr 05/31/25 12:00 05/31/25 13:25 05/31/25 13:35 Temperature Pulse Rate 84 77 78 Respiratory Rate 18 18 Blood Pressure Pulse Oximetry Oxygen Delivery Oxygen Flow Rate 05/31/25 14:00 05/31/25 16:00 05/31/25 20:00 Temperature 98.2 F Pulse Rate 88 90 Respiratory Rate 16 Blood Pressure 105/40 L Pulse Oximetry 94 93 Oxygen Delivery Nasal Cannula Oxygen Flow Rate 5 05/31/25 20:00 05/31/25 20:54 05/31/25 20:54 Temperature Pulse Rate 84 85 85 Respiratory Rate 18 Blood Pressure Pulse Oximetry 93 Oxygen Delivery Nasal Cannula Oxygen Flow Rate 3 05/31/25 21:06 05/31/25 22:00 06/01/25 00:00 Temperature 98.4 F Pulse Rate 81 81 80 Respiratory Rate 18 16 Blood Pressure 117/42 L Pulse Oximetry 93 Oxygen Delivery Oxygen Flow Rate 06/01/25 03:02 06/01/25 03:10 06/01/25 04:00 Temperature Pulse Rate 74 75 78 Respiratory Rate 16 16 Blood Pressure Pulse Oximetry Oxygen Delivery Oxygen Flow Rate 06/01/25 06:00 06/01/25 07:44 06/01/25 07:44 Temperature 98.2 F Pulse Rate 75 68 Respiratory Rate 18 16 Blood Pressure 123/49 L Pulse Oximetry 96 97 Oxygen Delivery Nasal Cannula Oxygen Flow Rate 4 06/01/25 08:02 Temperature Pulse Rate 72 Respiratory Rate 16 Blood Pressure Pulse Oximetry Oxygen Delivery Oxygen Flow Rate Intake/Output Intake/Output: Intake & Output 07/07/25 05/30/25 05/31/25 06/01/25 23:59 23:59 23:59 23:59 Intake Total 867.9 3375.8 540 Output Total 200 1800 0880 Balance 667.9 -1274.2 -910 Meds/Results Medications: Active Medications Generic Name Dose Route Start Last Admin Trade Name Freq PRN Reason Stop Dose Admin Acetaminophen 1,000 mg 05/30/25 20:49 05/31/25 21:54 Acetaminophen 500 Mg Tablet PO 1,000 mg Q6H PRN Administration Pain 1-3 or fever Acetylcysteine 200 mg 05/31/25 14:00 06/01/25 07:42 Acetylcysteine 20% Inhal Soln 800 Mg/4 Ml Vial INHALATION 200 mg Q6HRT GIOVANNY Administration Acyclovir 400 mg 05/30/25 21:05 06/01/25 08:23 Acyclovir 400 Mg Tablet PO 400 mg TID GIOVANNY Administration Albuterol/Ipratropium 3 ml 05/31/25 08:00 06/01/25 07:42 Ipratropium 0.5 Mg/Albuterol Sulfate 2.5 Mg Ampul.Neb 3 Ml INHALATION 3 ml Q6HRT GIOVANNY Administration Aspirin 81 mg 05/31/25 09:00 06/01/25 08:22 Aspirin 81 Mg Enteric Tablet PO 81 mg DAILY GIOVANNY Administration Atorvastatin Calcium 80 mg 05/31/25 09:00 06/01/25 08:23 Atorvastatin 40 Mg Tablet PO 80 mg DAILY GIOVANNY Administration Baclofen 10 mg 05/30/25 20:49 Baclofen 10 Mg Tablet PO Q12H PRN muscle spasm Benzonatate 200 mg 05/31/25 09:00 Benzonatate 100 Mg Capsule PO TID PRN Cough Bupropion HCl 150 mg 05/30/25 21:10 06/01/25 08:23 Bupropion Hcl Sr (12 Hr) 150 Mg Tab PO 150 mg BID GIOVANNY Administration Enoxaparin Sodium 40 mg 05/31/25 09:00 06/01/25 08:23 Enoxaparin 40 Mg/0.4 Ml Syringe SUB-Q 40 mg DAILY GIOVANNY Administration Fenofibrate 145 mg 05/31/25 09:00 06/01/25 08:23 Fenofibrate Nanocrystallized 145 Mg Tablet PO 145 mg DAILY GIOVANNY Administration Furosemide 40 mg 05/31/25 09:00 06/01/25 08:22 Furosemide Inj 40 Mg/4 Ml Vial IV PUSH 40 mg DAILY GIOVANNY Administration Guaifenesin 1,200 mg 05/30/25 21:10 06/01/25 08:22 Guaifenesin 12 Hr 600 Mg Tabcr PO 1,200 mg Q12HR GIOVANNY Administration Hydroxyzine HCl 25 mg 05/30/25 20:49 05/31/25 21:54 Hydroxyzine Hcl 25 Mg Tablet PO 25 mg QID PRN Administration anxiety Azithromycin 500 mg/ Sodium 250 mls @ 250 mls/hr 05/31/25 15:00 05/31/25 17:50 Chloride IVPB Infused Q24H GIOVANNY Infusion Meropenem 1 gm/ Sodium 100 mls @ 200 mls/hr 05/31/25 09:00 06/01/25 08:23 Chloride IVPB 200 mls/hr Q12H GIOVANNY Administration Linaclotide 290 mcg 05/31/25 06:30 06/01/25 05:42 Linaclotide 145 Mcg Capsule PO 290 mcg DAILY@0630 GIOVANNY Administration Loratadine 10 mg 05/30/25 21:06 Loratadine 10 Mg Tablet PO DAILY PRN allergies Lorazepam 0.5 mg 05/30/25 20:57 Lorazepam (*Crx) 0.5 Mg Tablet PO BID PRN anxiety Metoprolol Succinate 50 mg 05/30/25 21:10 05/31/25 20:45 Metoprolol Succinate Ext Rel 50 Mg Tabcr PO 50 mg HS GIOVANNY Administration Morphine Sulfate 30 mg 05/31/25 09:00 06/01/25 08:22 Morphine Sulfate (*Crx) 30 Mg Tabcr PO 30 mg QAM GIOVANNY Administration Multivitamins Therapeutic 1 tablet 05/31/25 09:00 06/01/25 08:23 Multivitamins Therapeutic Tab (*Bkc) PO 1 tablet DAILY GIOVANNY Administration Nitroglycerin 0.4 mg 05/30/25 20:57 Nitroglycerin Sl 0.4 Mg Tablet SUBLINGUAL Q5M PRN chest pain Non-Formulary Medication 200 mg 05/31/25 09:00 Sulindac PO 06/30/25 08:59 BID GIOVANNY Pantoprazole Sodium 40 mg 05/31/25 09:00 06/01/25 08:23 Pantoprazole 40 Mg Tablet PO 40 mg QAM GIOVANNY Administration Polyethylene Glycol 17 gm 05/30/25 20:49 Polyethylene Glycol 3350 17 Gm Powd.Pack PO QAM PRN Constipation Sertraline HCl 50 mg 05/31/25 09:00 06/01/25 08:23 Sertraline Hcl 50 Mg Tablet PO 50 mg DAILY GIOVANNY Administration Simethicone 125 mg 05/30/25 20:49 Simethicone 125 Mg Chew Tab PO QID PRN Gas Sodium Chloride 6 ml 06/01/25 05:00 Sodium Chlor 3% 15 Ml Neb (Respiratory Therapy) INHALATION 06/03/25 05:01 DAILY@0500 GIOVANNY Tamsulosin HCl 0.4 mg 05/30/25 21:15 06/01/25 08:22 Tamsulosin Hcl 0.4 Mg Capsule PO 0.4 mg BID GIOVANNY Administration Tobramycin/Dexamethasone 1 drop 05/30/25 21:00 06/01/25 08:22 Tobramycin/Dexamethasone Op 2.5 Ml Btl EACH EYE 1 drop QID GIOVANNY Administration Trazodone HCl 100 mg 05/30/25 21:00 05/31/25 21:54 Trazodone Hcl 50 Mg Tablet PO 100 mg HS GIOVANNY Administration Radiology Results: ITS Impressions Chest X-Ray 05/30/25 13:09 Impression: Probable mild pulmonary edema, worse in the right lung than left, versus possibly pneumonia. Correlate clinically. Small right pleural effusion. Labs Labs: Laboratory Results - last 24 hr 05/31/25 05/31/25 05/31/25 14:58 15:00 15:02 NT-Pro-B Natriuret Pep Procalcitonin Nasal MRSA (PCR) Not detected Nasal RSV Type A (PCR) Cancelled Nasal RSV Type B (PCR) Cancelled Chlamy pneumoniae PCR Cancelled Adenovirus DNA Cancelled Human Bocavirus (DEMETRI) Cancelled Coronavirus Type OC43 Cancelled Coronavirus Type HKU1 Cancelled Coronavirus Type 229E Cancelled Coronavirus Type NL63 Cancelled Human Metapneumovir PCR Cancelled Influenza A (PCR) Cancelled Influenza A (H1) RNA Cancelled Influenza A (H3) PCR Cancelled Ur L.pneumophila Ag Cancelled M. pneumoniae DNA Cancelled Parainfluenza PCR Cancelled Parainfluenza 2 (PCR) Cancelled Parainfluenza 3 RNA (PCR) Cancelled Parainfluenza 4 (PCR) Cancelled Rhino/Enterovirus (DEMETRI) Cancelled SARS-CoV-2 RNA (RT-PCR) Cancelled Urine Pneumococcal Ag Cancelled Influenza Type B (PCR) Cancelled Misc Test Comment Cancelled 06/01/25 05:16 NT-Pro-B Natriuret Pep 402 H Procalcitonin 0.1 Nasal MRSA (PCR) Nasal RSV Type A (PCR) Nasal RSV Type B (PCR) Chlamy pneumoniae PCR Adenovirus DNA Human Bocavirus (DEMETRI) Coronavirus Type OC43 Coronavirus Type HKU1 Coronavirus Type 229E Coronavirus Type NL63 Human Metapneumovir PCR Influenza A (PCR) Influenza A (H1) RNA Influenza A (H3) PCR Ur L.pneumophila Ag M. pneumoniae DNA Parainfluenza PCR Parainfluenza 2 (PCR) Parainfluenza 3 RNA (PCR) Parainfluenza 4 (PCR) Rhino/Enterovirus (DEMETRI) SARS-CoV-2 RNA (RT-PCR) Urine Pneumococcal Ag Influenza Type B (PCR) Misc Test Comment
[2025-06-01 11:13] LABS: Hematocrit 23.4 % (42.0-52.0); Immature Granulocyte Percent A 0.9 % (0-0.5); Lymphocytes Absolute Auto 0.73 K/mm3 (0.9-3.2); Mean Corpuscular HGB Conc 29.5 g/dl (32-36); Mean Corpuscular Hemoglobin 28.8 pg (26-34); Mean Corpuscular Volume 97.5 fl (80-100); Nucleated Red Blood Cells Absolute Auto 0.000 K/mm3 (0.0-0.012); Nucleated Red Blood Cells Perc 0.0 % (0.0-0.2); Platelet Count Result 177 k/mm3 (150-375); Red Blood Count 2.40 M/mm3 (4.6-6.20); White Blood Count 8.7 K/mm3 (4.5-10.0)
[2025-06-01 11:22] LABS: Anion Gap 7 mmol/L (4-12); Blood Urea Nitrogen 24 mg/dL (9-20); Calcium 8.9 mg/dL (8.4-10.2); Carbon Dioxide 28 mmol/L (22-30); Chloride 100 mmol/L (98-107); Estimated CRCL calculation 33 ml/min; Estimated Glomerular Filt Rate 41; Glucose 101 mg/dL (65-110); Potassium 4.0 mmol/L (3.4-5.0); Sodium 135 mmol/L (137-145)
[2025-06-01 12:23] LABS: Hemoglobin 6.9 g/dL (14.0-18.0)
[2025-06-01 12:32] LABS: Anisocytosis 1+; Hypochromasia 1+; Schistocytes None Seen
[2025-06-01] MEDS: AZITHROMYCIN IV 500 MG in SODIUM CHLORIDE 0.9% IV 250 ML IVPB (15:29)
[2025-06-01] MEDS: SODIUM CHLORIDE 0.9% IV 250 ML 30 ML IV CONT (17:00)
[2025-06-01] MEDS: METOPROLOL SUCCINATE EXT REL 50 MG TABCR PO (22:01)
[2025-06-01] MEDS: ACETAMINOPHEN 500 MG TABLET 1000 MG PO (22:17)
--- NOTE | 2025-06-01 22:40 | PC.NURSE ---
[facility], UPDATED WITH [facility], VS, AND REGARDING RECENT BLOOD TRANSFUSION. NO BEDS AVAILABLE AT THIS TIME.
[2025-06-02] VITALS (17 sets, daily range): BP systolic 101–120; BP diastolic 40–88; PULSE 70–92; RESP 18–20; TEMP 36.8–37; O2SAT 92–99
[2025-06-02] MEDS: IPRATROPIUM 0.5 MG/ALBUTEROL SULFATE 2.5 MG AMPUL.NEB 3 ML INHALATION ×4 (03:05→21:22)
[2025-06-02] MEDS: ACETYLCYSTEINE 20% INHAL SOLN 800 MG/4 ML VIAL 200 MG INHALATION ×2 (03:05→07:38)
[2025-06-02 05:37] LABS: Hematocrit 26.9 % (42.0-52.0); Hemoglobin 8.1 g/dL (14.0-18.0); Immature Granulocyte Percent A 0.6 % (0-0.5); Lymphocytes Absolute Auto 0.58 K/mm3 (0.9-3.2); Mean Corpuscular HGB Conc 30.1 g/dl (32-36); Mean Corpuscular Hemoglobin 28.5 pg (26-34); Mean Corpuscular Volume 94.7 fl (80-100); Nucleated Red Blood Cells Absolute Auto 0.000 K/mm3 (0.0-0.012); Nucleated Red Blood Cells Perc 0.0 % (0.0-0.2); Platelet Count Result 165 k/mm3 (150-375); Red Blood Count 2.84 M/mm3 (4.6-6.20); White Blood Count 7.9 K/mm3 (4.5-10.0)
[2025-06-02 06:01] LABS: Anion Gap 7 mmol/L (4-12); Blood Urea Nitrogen 25 mg/dL (9-20); Calcium 8.9 mg/dL (8.4-10.2); Carbon Dioxide 27 mmol/L (22-30); Chloride 99 mmol/L (98-107); Estimated CRCL calculation 36 ml/min; Estimated Glomerular Filt Rate 46; Glucose 96 mg/dL (65-110); Potassium 4.2 mmol/L (3.4-5.0); Sodium 133 mmol/L (137-145)
[2025-06-02 06:08] LABS: Immunoglobulin A 227 mg/dL (70-400); Immunoglobulin G 652 mg/dL (700-1600); Immunoglobulin M 67 mg/dL (40-230)
[2025-06-02] MEDS: LINACLOTIDE 145 MCG CAPSULE 290 MCG PO (06:19)
[2025-06-02 06:32] LABS: HIV 1/2 Ab P24 Ag Result Negative (Negative)
[2025-06-02] MEDS: ENOXAPARIN 40 MG/0.4 ML SYRINGE SUB-Q (08:56)
[2025-06-02] MEDS: FUROSEMIDE INJ 40 MG/4 ML VIAL IV PUSH (08:56)
[2025-06-02] MEDS: LORazepam (*CRX) 0.5 MG TABLET PO ×2 (08:57→17:22)
[2025-06-02] MEDS: BENZONATATE 100 MG CAPSULE 200 MG PO ×2 (08:57→17:22)
[2025-06-02] MEDS: ACYCLOVIR 400 MG TABLET PO ×3 (08:57→17:21)
[2025-06-02] MEDS: MORPHINE SULFATE (*CRX) 30 MG TABCR PO (08:57)
[2025-06-02] MEDS: guaiFENesin 12 HR 600 MG TABCR 1200 MG PO ×2 (08:57→20:56)
[2025-06-02] MEDS: SERTRALINE HCL 50 MG TABLET PO (08:57)
[2025-06-02] MEDS: FENOFIBRATE NANOCRYSTALLIZED 145 MG TABLET PO (08:57)
[2025-06-02] MEDS: PANTOPRAZOLE 40 MG TABLET PO (08:57)
[2025-06-02] MEDS: ATORVASTATIN 40 MG TABLET 80 MG PO (08:57)
[2025-06-02] MEDS: TAMSULOSIN HCL 0.4 MG CAPSULE PO ×2 (08:58→17:22)
[2025-06-02] MEDS: SIMETHICONE 125 MG CHEW TAB PO ×2 (08:58→17:22)
[2025-06-02] MEDS: MEROPENEM 1 GM in SODIUM CHLORIDE 0.9% IV 100 ML 200 ML IVPB ×2 (08:58→20:55)
[2025-06-02] MEDS: buPROPion HCL SR (12 HR) 150 MG TAB PO ×2 (08:58→17:22)
[2025-06-02] MEDS: MULTIVITAMINS THERAPEUTIC TAB (*BKC) 1 TABLET PO (08:58)
[2025-06-02] MEDS: ASPIRIN 81 MG ENTERIC TABLET PO (08:58)
[2025-06-02] MEDS: TOBRAMYCIN/DEXAMETHASONE OP 2.5 ML BTL 1 DROP EACH EYE ×4 (08:59→20:57)
--- NOTE | 2025-06-02 09:32 | P.PNPL_ITS ---
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 Patient with a history of SNEHA in sputum, multiple pulmonary infections requiring antibiotics on 02/25/2024, 04/10/2024, 09/08/2024, 10/04/2024, 11/04/2024, 11/20/2024, 12/02/2024, 03/02/2025, 04/25/2025, 05/12/2025, and . Other comorbidities include COPD and history of fluid overload. Sputum on 12/15/2024 with AFB verified on 01/14/25 and grew SNEHA on 03/03/25. Sensitivities 03/20/25. On 03/20/25 patient referred to [facility] with appointment scheduled for 05/02/2025. Sputum on 12/16/2024 with AFB verified on 01/20/25 and grew SNEHA on 02/01/25.?Sensitivities 03/28/25. QuantiFERON gold was negative on 01/24/25. ORGANISM: MYCOBACTERIUM AVIUM COMPLEX AMIKACIN: 16 S mcg/mL AMIKACIN (LIPOSOMAL, INHALED): 16 S mcg/mL CIPROFLOXACIN: >8 mcg/mL CLARITHROMYCIN: 2 S mcg/mL CLOFAZIMINE: 0.25 mcg/mL DOXYCYCLINE: >8 mcg/mL LINEZOLID: 16 I mcg/mL MINOCYCLINE: >8 mcg/mL MOXIFLOXACIN: 4 R mcg/mL RIFABUTIN: 1 mcg/mL RIFAMPIN: >4 mcg/mL STREPTOMYCIN: >32 * This is a corrected result. * A prior result that was reported as final has been changed. 1. Mycobacterium avium complex M.I.C. RX --------- --- Rifampin AFB >4 S Streptomycin AFB R Amikacin AFB 16 S Moxifloxacin AFB R 04/25/2025: Recommended patient be transferred to [facility] so he could be evaluated by Infectious Disease team to determine if he needs active treatment for his SNEHA and if so which medicines would be recommended. 04/26/25: patient is afebrile today. Patient feels improved with ceftriaxone cam a azithromycin and Septra. Plan: I will send repeat sputum for AFB. Recommend transfer to [facility] to be evaluated by Infectious Disease team. Sputum on 04/27/2025 and 04/28/2025 AFB smear negative and no growth of AFB as of 05/31/25. 05/02/2025: Patient was seen at [facility] infectious Disease Clinic. We have contacted the clinic multiple times to get the note and have been unsuccessful. The patient tells me they did talk about taking a medicine for 1 and half years. Other than that he has no idea what they said or recommended other than to follow-up in July. Attempted to reach daughter, Sadia [phone], who was at the appointment but this goes to a full voice mail. 05/31/25: patient with recurrent infectious episodes associated with hypoxemia which may or may not be related to SNEHA. Plan: Recommend transfer to [facility] to be evaluated by Infectious Disease and Pulmonary teams given multiple hospitalizations despite my best care. Accepted on 05/30/2025 no beds available. Will send sputum for AFB x3. CT scan of the chest 06/01/25 compared to 05/12/2025 shows new peripheral dense consolidative infiltrates posterior segment of the right upper lobe, worsening consolidative infiltrate superior segment of the left lower lobe, worsening infiltrate right middle lobe, worsening infiltrate right lower lobe and worsening consolidative infiltrate posterior segment of the left lower lobe. Plan: Patient with progressive infiltrates and a CT scan despite multiple courses of inpatient and outpatient antibiotics. Still concerned about MAC lung disease. Awaiting transfer to [facility] to be assessed by Infectious Disease and Pulmonary teams. 06/01/25: Patient with progressive infiltrates and a CT scan despite multiple courses of outpatient antibiotics. Awaiting transfer to [facility] to be evaluated by Infectious Disease and Pulmonary teams. Plan: I called the [facility] ID clinic and patient was seen by Dr. Larson on 05/02/25 and I have called and left my cell phone for her to call me when she is available. I called the daughter, Sadia [phone], who was at the appointment to get details but this goes to a full voice mail and unable to leave message. Will continue azithromycin 500 Q day, today is day 4. Will switch to 500 p.o. on 06/03/2025 Inpatient Pulmonary consultative services will resume on 06/05/2025, call with questions. Discussed with Dr. Esposito. Will follow with you. (2) Acute on chronic respiratory failure with hypoxia: Code(s): J96.21 - Acute and chronic respiratory failure with hypoxia Status: Resolved Assessment and Plan: 04/28/2025: Home O2 assessment: Final recommendation was 2 L at rest and 5 L with activity. 05/31/25:05/31/2025: Patient has worsening dyspnea on exertion, worsening cough and phlegm production and worsening hypoxemia with no wheezing. He presented with a leukocytosis. I do not feel this is a COPD exacerbation. He does have chronic issues expectorating his phlegm and does persist. When I enter the room he was on 5 L nasal cannula saturations 99%. I decreased him to 4 L nasal cannula saturations were 94%. I decreased him to 2 L nasal cannula saturations were 92%. Patient with a history of SNEHA in sputum, multiple pulmonary infections requiring antibiotics on 02/25/2024, 04/10/2024, 09/08/2024, 10/04/2024, 11/04/2024, 11/20/2024, 12/02/2024, 03/02/2025, 04/25/2025, 05/12/2025, and 05/22/2025. Other comorbidities include COPD and history of fluid overload. Plan: Continue treatment for possible bacterial infection with meropenem to cover his Pseudomonas and Alcaligenes and azithromycin for atypical coverage. MRSA swab, If positive will add vancomycin. Respiratory pathogen panel, urine for Legionella, urine for pneumococcal studies ordered. Will place on continuous pulse ox. Goal saturation 90-94%. Adjust oxygen accordingly. 06/01/25: Overall the patient says he feels a little bit better. He still short of breath at rest. His cough is back to his baseline with a small amount of phlegm. He denies hemoptysis, fever, chills, rigors. When I enter the room he was on 4 L nasal cannula saturations 99%. I decreased him to 2 L nasal cannula and after 10 minutes his saturations were 92%. BNP 402. Procalcitonin 0.1. diuresed 1.2 L yesterday, cumulative diuresis since admission 600 mL. Weight 71.6 with an admission weight of [address] scan of the chest compared to 05/12/2025 shows new peripheral dense consolidative infiltrates posterior segment of the right upper lobe, worsening consolidative infiltrate superior segment of the left lower lobe, worsening infiltrate right middle lobe, worsening infiltrate right lower lobe and worsening consolidative infiltrate posterior segment of the left lower lobe. Plan: Patient with progressive infiltrates and a CT scan despite multiple courses of outpatient antibiotics. Still concerned about MAC lung disease. Awaiting transfer to [facility] to be evaluated by Infectious Disease and Pulmonary teams. In the meantime treating for possible bacterial infection with azithromycin day 3, meropenem, day 2. Goal saturation 90-94%. Adjust oxygen accordingly. Will for other etiologies of infection. Respiratory pathogen panel, urine Legionella, urine pneumococcal, mycoplasma IgM. Will send ABPA profile to to [facility] including Aspergillus fumigatus IgE, Aspergillus fumigatus IgG, total IgE, CBC with differential. 06/02/2025: overall patient says he has a little bit improved. Overall he says he has 50% back to his normal. He denies any rest shortness of breath. Still has dyspnea on exertion. He slept pretty well. He is afebrile. He denies cough, phlegm production or hemoptysis.When I entered the room he is on 4 L nasal cannula saturations 98%. I decreased him to 2 L nasal cannula saturations were 94%. His white blood cell count is 7.9, his creatinine is 1.47. his weight today is 70.7. Plan: Patient with progressive infiltrates and a CT scan despite multiple courses of outpatient antibiotics. Still concerned about MAC lung disease. Awaiting transfer to [facility] to be evaluated by Infectious Disease and Pulmonary teams. In the meantime treating for possible bacterial infection with azithromycin day 4, meropenem, day 3. Goal saturation 90-94%. Adjust oxygen accordingly. Will for other etiologies of infection. Respiratory pathogen panel, urine Legionella, urine pneumococcal, mycoplasma IgM, ABPA profile to [facility] including Aspergillus fumigatus IgE, Aspergillus fumigatus IgG, total IgE, CBC with differential all pending. (3) Chronic obstructive pulmonary disease: Code(s): J44.9 - Chronic obstructive pulmonary disease, unspecified Status: Acute Assessment and Plan: Gold grade 2 group E COPD Regarding his COPD, patient with 60 pack year tobacco use quit in 2019, alpha 1 anti trypsin genotype MM, [id number] apical predominant centrilobular and paraseptal emphysema on his CT scan from 10/11/2021. Of note he has had COVID pneumonia on 09/10/2021 and Pseudomonas aeruginosa on 10/10/2021 and 04/26/2025. His PFTs from 12/16/2023 show mild obstruction with FEV1 68%, ratio 61%. No br onchodilator response, hyperinflation, severely decreased DLCO the remains mildly decreased when adjusted for alveolar volume. Compared to 01/01/2022 had been a significant decrease in the FVC, FEV1, total lung capacity, functional residual capacity and diffusing capacity. When admitted for pneumonia had an ABG on 02/25/2024 on 3 L nasal cannula 7.44/36/67. 10/04/2024: ABG on 2 L 7.43/41/75. 10/04/2024: White blood cell count 11.1 eosinophils 3.2%=355/uL. 04/09/2024 white blood cell count 11.1, eosinophils 0.4%=44/uL. Tested positive for COVID 11/13/2023 treated with Paxlovid, rebound symptoms treated with clarithromycin and doxycycline. Hospitalize 02/25/2024 for pneumonia with sputum showing Haemophilus treated with steroids. Hospitalized 04/10/24 to 04/12/24 for COPD exacerbation treated with prednisone and azithromycin. 09/08/2024 cold symptoms, treated with doxycycline and prednisone taper. 10/04/2024 ED visit for shortness of breath treated for fluid overload and COPD exacerbation with prednisone and Augmentin. 11/04 admitted to [facility] with congestive heart failure and pneumonia no evidence of COPD exacerbation. 11/20 admitted to [facility] for shortness of breath, fluid overload and possible pneumonia. 12/02/2024 through 12/06/2024 admitted to [facility] treated for pneumonia. sputum from 12/17/2024 grew out Alcaligenes xylosoxidans sensitive to meropenem and Septra, intermediate to Zosyn, resistant to ceftaz, levofloxacin and imipenem. 03/02/2025 patient with increased phlegm production and treated for bronchitis with Septra DS 2 tablets twice a day x 7 days. 04/25/25 through 04/28/2025: admitted to [facility] for respiratory distress and hypoxemia. I spoke with the emergency room physician and requested that he be transferred to [facility] said he could be evaluated by an Infectious Disease team which we do not have at [facility]. Patient was referred to [facility] but no beds were available. In the meantime I recommended ceftriaxone, azithromycin and Septra. 04/26/25: a CT angiogram of the chest: I have compared this to CT scans from 11/20/2024 and 08/29/2024 and 02/25/2024. Current CT shows no PE, worsening consolidation and infiltrates in the right lower lobe compared to 11/20/2024 and 02/25/2024. Compared to CT scan on 02/25/2024 currently there are some areas of improved consolidation in the right lower lobe and some different areas with worsening consolidations in the right lower lobe. There is unchanged consolidation in the posterior left lower lobe with no change compared to 11/20/2024, 08/29/2024 and that have improved from 02/25/2024. Currently there are patchy consolidations in the right middle lobe some which were present on 11/20/2024 and some that are new. There were no infiltrates on 08/29/2024 in the right middle lobe. Modified barium swallow normal. Sputum has grown out normal chico. 04/28/2025: Home O2 assessment: Final recommendation was 2 L at rest and 5 L with activity. discharged on cefdinir x3 days, azithromycin x2 days, Septra 2 tablets p.o. b.i.d. x3 days, but of SP, guaifenesin 1200 b.i.d., Lasix 20 p.o. q.day, 4 L at night. After discharge respiratory pathogen panel was positive for human metapneumovirus. He was to be evaluated with [facility] on 05/02/2025. sputum for AFB collected on 04/27/2025 and 04/28/2025. 05/12/2025: Seen in the emergency department for progressively worse shortness of breath, sputum production, BNP 3300, COVID, influenza, RSV RT PCR negative. ABG 7.39/40/88 on 2 L nasal cannula. prescribed Septra 1 tablet p.o. q.12 hours x7 days 05/22/2025: Patient called his PCP coughing all day with a little bit of phlegm raspy throat. levofloxacin 750 q.day prescribed X 10 days. 05/31/2025: Patient has worsening dyspnea on exertion, worsening cough and phlegm production and worsening hypoxemia with no wheezing. He presented with a leukocytosis. I do not feel this is a COPD exacerbation. He does have chronic issues expectorating his phlegm and does persist. Plan: DuoNebs q.6 hours, guaifenesin 1200 mg p.o. q.12 hours, Claritin 10 mg p.o. q.day, I will add Mucomyst q.6 hours, coronary flutter valve and vest therapy twice a day. 06/01/25: Patient with minimally improved. No wheezing on exam. He has minimal phlegm production. Plan: DuoNebs q.6 hours, guaifenesin 1200 mg p.o. q.12 hours, Claritin 10 mg p.o. q.day, Mucomyst q.6 hours, coronary flutter valve and vest therapy twice a day. 06/02/25: patient tells me he is making no phlegm. No wheezes on exam. Plan: I will discontinue Mucomyst today. Change DuoNebs to q.4 hours while awake, guaifenesin 1200 mg p.o. q.12 hours, Claritin 10 mg p.o. q.day, coronary flutter valve and vest therapy twice a day. I will perform an overnight oximetry on 4 L oxygen to assess his oxygenation at night. Subjective Date/time seen: 06/02/25 09:32 Interval history: 05/30/25: This is a new pulmonary consult for COPD and MAC. 80-year-old with a history of coronary artery disease status post non ST elevation OR August of 2019, ischemic cardiomyopathy, hypertension, hyperlipidemia, Gold grade 2 group B COPD on home oxygen 7 L at rest, with activity and with sleep and MAC lung disease. Regarding his COPD, patient with 60 pack year tobacco use quit in 2019, alpha 1 anti trypsin genotype MM, [id number] apical predominant centrilobular and paraseptal emphysema on his CT scan from 10/11/2021. Of note he has had COVID pneumonia on 09/10/2021 and Pseudomonas aeruginosa on 10/10/2021, and 04/26/2025. His PFTs from 12/16/2023 show mild obstruction with FEV1 68%, ratio 61%. No bronchodilator response, hyperinflation, severely decreased DLCO the remains mildly decreased when adjusted for alveolar volume. Compared to 01/01/2022 had been a significant decrease in the FVC, FEV1, total lung capacity, functional residual capacity and diffusing capacity. When admitted for pneumonia had an ABG on 02/25/2024 on 3 L nasal cannula 7.44/36/67. 10/04/2024: ABG on 2 L 7.43/41/75. 10/04/2024: White blood cell count 11.1 eosinophils 3.2%=355/uL. 04/09/2024 white blood cell count 11.1, eosinophils 0.4%=44/uL. Tested positive for COVID 11/13/2023 treated with Paxlovid, rebound symptoms treated with clarithromycin and doxycycline. Hospitalize 02/25/2024 for pneumonia with sputum showing Haemophilus treated with steroids. Hospitalized 04/10/24 to 04/12/24 for COPD exacerbation treated with prednisone and azithromycin. 09/08/2024 cold symptoms, treated with doxycycline and prednisone taper. 10/04/2024 ED visit for shortness of breath treated for fluid overload and COPD exacerbation with prednisone and Augmentin. 11/04 admitted to [facility] with congestive heart failure and pneumonia no evidence of COPD exacerbation. 11/20 admitted to [facility] for shortness of breath, fluid overload and possible pneumonia. 12/02/2024 through 12/06/2024 admitted to [facility] treated for pneumonia. sputum from 12/17/2024 grew out Alcaligenes xylosoxidans sensitive to meropenem and Septra, intermediate to Zosyn, resistant to ceftaz, levofloxacin and imipenem. 03/02/2025 patient with increased phlegm production and treated for bronchitis with Septra DS 2 tablets twice a day x 7 days. 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 Sputum on 12/15/2024 with AFB verified on 01/14/25 and grew SNEHA on 03/03/25. Sensitivities 03/20/25. On 03/20/25 patient referred to [facility] with appointment scheduled for 05/02/2025. Sputum on 12/16/2024 with AFB verified on 01/20/25 and grew SNEHA on 02/01/25.?Sensitivities 03/28/25. QuantiFERON gold was negative on 01/24/25. Sputum on 04/27/2025 and 04/28/2025 AFB smear negative, cultures pending. Patient was treated for bronchitis on 03/02/2025 and improved with Septra. He was at his baseline which is dyspnea on exertion at 50-75 feet. He is using 7 L at rest, with saturations 95-97% at home. He is using 7 L with activity with saturations 92%. He is using 7 L at night. He typically has no daily fevers. He coughs phlegm 2 times a day which is described as lynn. Patient tells me he was at his baseline on 04/24/2020 5. On 04/25/2025 he developed a fever, increased cough, worsening dyspnea on exertion with the same amount of phlegm. Family reported some confusion. He was brought to the emergency department. 04/25/25 through 04/28/2025: admitted to [facility] for respiratory distress and hypoxemia. I spoke with the emergency room physician and requested that he be transferred to [facility] said he could be evaluated by an Infectious Disease team which we do not have at [facility]. Patient was referred to [facility] but no beds were available. In the meantime I recommended ceftriaxone, azithromycin and Septra. 04/26/25: a CT angiogram of the chest: I have compared this to CT scans from 11/20/2024 and 08/29/2024 and 02/25/2024. Current CT shows no PE, worsening consolidation and infiltrates in the right lower lobe compared to 11/20/2024 and 02/25/2024. Compared to CT scan on 02/25/2024 currently there are some areas of improved consolidation in the right lower lobe and some different areas with worsening consolidations in the right lower lobe. There is unchanged consolidation in the posterior left lower lobe with no change compared to 11/20/2024, 08/29/2024 and that have improved from 02/25/2024. Currently there are patchy consolidations in the right middle lobe some which were present on 11/20/2024 and some that are new. There were no infiltrates on 08/29/2024 in the right middle lobe. Modified barium swallow normal. Sputum has grown out normal chico. 04/28/2025: Home O2 assessment: Final recommendation was 2 L at rest and 5 L with activity. discharged on cefdinir x3 days, azithromycin x2 days, Septra 2 tablets p.o. b.i.d. x3 days, but of SP, guaifenesin 1200 b.i.d., Lasix 20 p.o. q.day, 4 L at night. After discharge respiratory pathogen panel was positive for human metapneumovirus. He was to be evaluated with [facility] on 05/02/2025. sputum for AFB collected on 04/27/2025 and 04/28/2025. 05/02/2025: Patient was seen at [facility] infectious Disease Clinic. We have contacted the clinic multiple times to get the note and have been unsuccessful. The patient tells me they did talk about taking a medicine for 1 and half years. Other than that he has no idea what they said or recommended other than to follow-up in July. 05/12/2025: Seen in the emergency department for progressively worse shortness of breath, sputum production, BNP 3300, COVID, influenza, RSV RT PCR negative. ABG 7.39/40/88 on 2 L nasal cannula. prescribed Septra 1 tablet p.o. q.12 hours x7 days 05/22/2025: Patient called his PCP coughing all day with a little bit of phlegm raspy throat. levofloxacin 750 q.day prescribed X 10 days. 05/29/25: I spoke to the patient and usually is on 2 L at rest and 5 with activity. I spoke to the patient today and he is on 4-5 L at rest with saturations 87%. His saturations with 5 L activity are in the mid 80s. He says he has not gained weight and is not swollen. He has finished 10 days of antibiotics through his PCP. I recommended the patient be evaluated in the emergency department and I recommended that he go to [facility] emergency department so that he could be evaluated by their Pulmonary team and their Infectious Disease team. He voiced understanding. 05/30/2025: Patient presented to [facility] ED with complaints of shortness of breath, exertional hypoxemia. He finished his outpatient Levaquin today. blood pressure 112/47, heart rate 79, saturation 96% on 4 L nasal cannula. Afebrile, creatinine 1.13. White blood cell count 11.8. I spoke to the emergency room and recommended he be transferred to [facility] to be evaluated by the Infectious Disease team and pulmonary team. Patient was accepted but no beds available. MRSA swab negative. Started on ceftriaxone, azithromycin and Septra. Patient given Lasix 40 IV x1. 05/31/2025: Currently the patient tells me he is breathing at his baseline at rest. He has worsening dyspnea on exertion. His cough and phlegm production or better than yesterday. He denies fever, chills, rigors, sweats. He has no hemoptysis. He has no worsening orthopnea, he has stable nocturia every 2 hours at home. When I enter the room he was on 5 L nasal cannula saturations 99%. I decreased him to 4 L nasal cannula saturations were 94%. I decreased him to 2 L nasal cannula saturations were 92%. 06/01/25: Overall the patient says he feels a little bit better. He still short of breath at rest. His cough is back to his baseline with a small amount of phlegm. He denies hemoptysis, fever, chills, rigors. When I enter the room he was on 4 L nasal cannula saturations 99%. I decreased him to 2 L nasal cannula and after 10 minutes his saturations were 92%. BNP 402. Procalcitonin 0.1. diuresed 1.2 L yesterday, cumulative diuresis since admission 600 mL. Weight 71.6 with an admission weight of [address] scan of the chest compared to 05/12/2025 shows new peripheral dense consolidative infiltrates posterior segment of the right upper lobe, worsening consolidative infiltrate superior segment of the left lower lobe, worsening infiltrate right middle lobe, worsening infiltrate right lower lobe and worsening consolidative infiltrate posterior segment of the left lower lobe. 06/02/2025: overall patient says he has a little bit improved. Overall he says he has 50% back to his normal. He denies any rest shortness of breath. Still has dyspnea on exertion. He slept pretty well. He is afebrile. He denies cough, phlegm production or hemoptysis.When I entered the room he is on 4 L nasal cannula saturations 98%. I decreased him to 2 L nasal cannula saturations were 94%. His white blood cell count is 7.9, his creatinine is 1.47. his weight today is 70.7. DATA: 06/01/25: CLINICAL INDICATION: Pneumonia, history of SNEHA COMPARISON: 05/12/2025. FINDINGS/OBSERVATIONS: LUNG: Worsening right-sided pleural effusion and pleural thickening. Increased attenuation is identified surrounding the effusion, for which a rind is suspected. Interstitial thickening is redemonstrated within the bilateral lung short, right greater than left. Volume loss is now detected within the right hemithorax, an interval change from prior. Varicose bronchiectasis is present within the bilateral lower lobes. Interval development of patchy groundglass opacification, worsening within the inferior segment of the left upper lobe. Centrilobular emphysematous disease within the bilateral upper lobes. Within the right inferior lobar bronchus is a persistent focus of mixed attenuation along the posterior wall, increased in size from 05/12/2025 which may represent aspiration and ingested material, for which persistent aspiration is demonstrated. This focus was not present on the 04/26/2025 CT examination. HEART: The heart is of normal size, without pericardial effusion. MEDIASTINUM: Worsening mediastinal lymphadenopathy, when compared with previous study performed 05/12/2025. The largest lymph node is within the right paratracheal region measuring 12 mm in short axis dimension. Multiple calcified lymph nodes are also noted suggesting prior granulomatous disease. SOFT TISSUES OF THE CHEST: Unremarkable. BONES OF THE CHEST: No acute fracture. No lytic or blastic lesions are identified. UPPER ABDOMEN: Redemonstration of innumerable foci of decreased attenuation within the liver, unchanged from 11/20/2024 IMPRESSION: Worsening appearance of the bilateral lung short, right greater than left, with volume loss and additional findings in the dependent portion of the right chest for which a developing rind is suspected. Findings consistent with patient's known SNEHA infection, as detailed above. Continued aspiration is also suspected with residual (likely) aspirated products within the right inferior lobar bronchus. Worsening mediastinal lymphadenopathy is also present, as detailed above. 04/26/2025: EXAMINATION: CTA chest PE protocol DATE: 04/26/2025 13:46 CDT INDICATION: Shortness of breath TECHNIQUE: Computed tomographic angiography (CTA) of the chest was performed with 100 mL Omnipaque-350 intravenous contrast. The dose-length product was 256.22 mGy-cm. Maximum intensity projection 3D-reconstructions of the aorta and other arteries were constructed by the technologist on a separate workstation. Automated exposure control and iterative reconstruction technique were employed. COMPARISON: Chest x-ray dated 04/25/[address] dated 11/20/2024. FINDINGS: Small right pleural effusion. Trace left pleural effusion. There is mediastinal lymphadenopathy. There is right hilar lymphadenopathy. There is atherosclerosis of the aorta and coronary arteries. Small hiatal hernia. Heart size normal. Pulmonary arteries are enlarged, consistent with pulmonary hypertension. Study is technically adequate without evidence for pulmonary embolism. There is patchy bilateral airspace disease of the right upper, right middle and bilateral lower lobes, consistent with multifocal pneumonia. No endobronchial lesions. There is emphysema. No suspicious pulmonary nodules or masses. Mild thoracic spondylosis. No focal lytic or blastic lesions. IMPRESSION: 1. Multifocal airspace disease, consistent with pneumonia. 2: Bilateral pleural effusions, right greater than left. 3: Mediastinal lymphadenopathy, likely reactive. 4.: Pulmonary artery enlargement, consistent with pulmonary hypertension. 5: Emphysema. My read: I have compared this to CT scans from 11/20/2024 and 08/29/2024 and 02/25/2024. Current CT shows no PE, , Small right pleural effusion, worsening consolidation and infiltrates in the right lower lobe compared to 11/20/2024 and 02/25/2024. Compared to CT scan on 02/25/2024 currently there are some areas of improved consolidation in the right lower lobe and some different areas with worsening consolidations in the right lower lobe. There is unchanged consolidation in the posterior left lower lobe with no change compared to 11/20/2024, 08/29/2024 and that have improved from 02/25/2024. Currently there are patchy consolidations in the right middle lobe some which were present on 11/20/2024 and some that are new. There were no infiltrates on 08/29/2024 in the right middle lobe. 01/02/25:? Modified barium swallow:? Impression:? Moderate dysphagia 11/20/24: EXAMINATION:.? Recommendations: Regular but easy to chew diet with regular liquids but patient must use chin tuck posture with all eating and drinking to prevent pharyngeal residual and instances of laryngeal penetration and aspiration.? He was referral to outpatient speech therapy. 12/14/24:? CRP 3.6, ESR 134,? CPK 43, Aspergillus Niger IgE 0.31, very low level.? Aspergillus Niger antibody negative, Aspergillus flatus antibody negative.? Aspergillus fumigatus antibody negative.? Rheumatoid factor 12.9, anti CCP antibody less than 16.? TERRA screen positive with an anti-DNA antibody 27 (positive greater than 10), Anca screen negative, hypersensitivity pneumonitis panel negative.? 01/24/2025:? QuantiFERON gold negative.? IgE 691 normal less than 114, rheumatoid factor 12.9. IgG 693, IgM 90, IgA 212, all normal.? Aldolase 5.0 ?CTA chest PE protocol INDICATION: Hypoxia elevated d-dimer COMPARISON: 08/29/2024 and 10/11/2021. FINDINGS: No filling defects within the main or proximal pulmonary arteries. The thoracic aorta is unremarkable. No aneurysmal dilatation or dissection. The heart is of normal size, without pericardial effusion. Panlobular emphysematous disease is identified. Patchy groundglass opacification detected bilaterally. Small bilateral pleural effusions with adjacent compressive atelectasis Multiple subcentimeter areas of decreased attenuation within the liver, unchanged dating back to 10/11/2021. IMPRESSION: No pulmonary embolus. No aneurysmal dilatation or dissection within the thoracic aorta. Small bilateral pleural effusions with adjacent compressive atelectasis. 08/16/2024: Overnight oximetry on 3 L nasal cannula. The report in the computer status overnight oximetry on room air but this is mislabeled as the test was performed on 3 L. Recording duration 8 hours and 39 minutes. Basal saturation 92.1%. High saturation 96%. Low saturation 79%. Time with saturation less than or equal to 88% was 4 minutes and 58 seconds. I will continue oxygen 3 L at night. 06/24/2024: This is a 6 minute walk test. The test was performed and interpreted in accordance with the 2014 ERS/ATS task force guidelines. Of note, patient used to wheeled walker for stability and the testing was performed on his home portable oxygen concentrator at 3 L with pulse dose. Findings: The patient's resting 3 L oxygen saturation measured by pulse oximetry was 95% and heart rate was 80 bpm. Patient ambulated for 137 meters and oxygen saturation remained 91 to 92%. Heart rate at the end of the study was 94 bpm. The patient did not have rest or exertional hypoxemia on 3 L nasal cannula pulse dose with his portable oxygen concentrator. 02/25/24 - CTA chest (ER) - No PE identified. 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 There is patchy consolidation in the right middle and bilateral lower lobes with additional regions of tree-in-bud opacity scattered throughout both lungs consistent with multifocal pneumonia. There is associated bronchial wall thickening and mucous plugging in the bilateral lower lobes. Tiny left pleural effusion. No septal line thickening to suggest pulmonary edema. No pneumothorax. Mild cardiomegaly. Atherosclerotic coronary artery calcifications. No pericardial effusion. 02/25/2024: ABG on 4 L cannula 7.39/35/63 01/15/24 - Home O2 eval - Required 2L/min O2 with ambulation and none at rest. 12/16/23 - PFT The test was performed and results interpreted in accordance with the 2019 and 2005 ATS/ERS Task Force guidelines respectively using the Global Lung Function Initiative-2012 reference equations. Patient demonstrated good effort and cooperation. Reproducibility criteria were met. The quality of the pre bronchodilator spirometry maneuver was Grade A and post bronchodilator spirometry maneuver was Grade A. Findings: Spirometry:? There is decreased maximal expiratory airflow at all lung volumes with concave expiratory flow tracing.? The contour the inspiratory flow tracing is normal.? The pre bronchodilator FVC is 3.33 L, 82% predicted.? The pre bronchodilator FEV1 is 2.02 L, 68% predicted.? The pre bronchodilator FEV1: FVC ratio 61%.? The post bronchodilator FVC is 3.41 L, representing a 2% increase.? The post bronchodilator FEV1 is 2.09 L, representing a 3% increase.? The post bronchodilator FEV1:? FVC ratio 61%.? Plethysmography:? The total lung capacity is 6.43 L, 89% predicted.? The functional residual capacity is 4.14 L, 106% predicted.? The residual volume is 3.10 L, 115% predicted.? The residual volume:? Total lung capacity ratio is 48%.? Diffusing capacity:? The diffusing capacity unadjusted for hemoglobin and carboxyhemoglobin is 9.0, 37% predicted.? The diffusing capacity adjusted for alveolar volume is 2.29, 64% predicted. Comparison to previous pulmonary function testing on 01/01/2022 the post bronchodilator FVC has decreased from 4.38 L to 3.41 L.? The post bronchodilator FEV1 has decreased from 3.11 L to 2.09 L. the total lung capacity is decreased from 7.39 L to 6.43 L.? The functional residual capacity has decreased from 4.95 L to 4.14 L.? The residual volume is unchanged from 2.93 L to 3.10 L.? The diffusing capacity unadjusted for hemoglobin and carboxyhemoglobin is decreased from 14.9 to 9.0.? The diffusing capacity adjusted for alveolar volume decreased from 2.63 to 2.29 Impression: There is a mild obstructive abnormality. There is no significant improvement after inhaling a single dose of albuterol.? The increase in residual volume to total lung volume ratio is consistent with hyperinflation from an obstructive abnormality.? The diffusing capacity unadjusted for hemoglobin and carboxyhemoglobin is severely decreased and remains mildly decreased when adjusted for alveolar volume. Compared to prior pulmonary function testing on 01/01/2022 there has been a significant decrease in the FVC, FEV1, total lung capacity, functional residual capacity and diffusing capacity with no significant change in the residual volume. 09/16/23 - Home O2 eval - Required 2L/min O2 with ambulation and none at rest. 01/01/22 - Home O2 eval - Patient did not require supplemental oxygen at rest or with exertion. 01/01/22 - PFTs - Mild obstructive abnormality with normal FEV1 without significant improvement after inhaling a single dose of albuterol. Lung volumes normal. The diffusing capacity unadjusted for hemoglobin is moderately decreased and normalizes when adjusted for alveolar volume. 12/18/21 - Overnight oximetry on room air - Time with saturation less than or equal to 88% was 4.0 minutes. Patient does not qualify for supplemental oxygen at night. 10/10/2021 - ABG on 4L NC - 7.44/43/70. 10/20/21 - Chest XR - Persistent patchy bilateral airspace disease with possible improvement in the left lung, compatible with pneumonia. 10/11/2021 - CTA chest - Extensive bilateral pulmonary infiltrates and likely reactive hilar or mediastinal adenopathy. Small right pleural effusion. No evidence of pulmonary embolism. 10/11/2021 - Echo - LV systolic function mildly reduced, EF 45-50%. Grade I diastolic dysfunction. The inferior wall, inferoseptal wall, basal inferolateral wall, and mid inferolateral wall are hypokinetic. Mild LA enlargement. No pulmonary hypertension. Review of Systems Constitutional: Constitutional: Reports no additional constitutional complaints Eyes: Eyes: Reports no additional eye complaints ENT: Reports system reviewed and no additional complaints, except as documented Cardiovascular: Cardiovascular: Reports no additional cardiovascular complaints Respiratory: Respiratory: Reports no additional respiratory complaints Gastrointestinal: Gastrointestinal: Reports no additional gastrointestinal complaints Musculoskeletal: Musculoskeletal: Reports no additional musculoskeletal complaints Neurologic: Reports system reviewed and no additional complaints, except as documented Psychiatric: Psychiatric: Reports no additional psychiatric complaints Endocrine: Endocrine: Reports no additional endocrine complaints Hematologic/Lymphatic: Hematologic/Lymphatic: Reports no additional hematologic/lymphatic complaints Allergic/Immunologic: Allergic/Immunologic: Reports no additional allergic/immunologic complaints Exam Const: General: cooperative, healthy appearing and comfortable Orientation/consciousness: oriented to person, oriented to place and oriented to time HENMT: Head: normal to inspection Ears: hearing grossly normal bilaterally Eyes: General: appearance normal, both eyes and all related structures Neck: Neck: normal visual inspection Chest: Chest palpation & inspection: normal inspection of the chest Resp: Effort & Inspection: normal respiratory effort and able to speak in co mplete sentences Auscultation: no crackles, no rales, no rhonchi, no wheezes and lung sounds not diminished Other: Crackles and rhonchi throughout. Improved today. No wheezes. Cardio: Jugular venous distension: no JVD GI: Inspection: normal to inspection Skin: General skin exam: normal color Neuro: General: oriented to person, oriented to place and oriented to time Extrem: General: normal to inspection Psych: Appearance: grossly normal Objective Data Vital Signs Vital Signs: Vital Signs - 24 hr 06/01/25 11:59 06/01/25 12:00 06/01/25 14:00 Temperature 36.6 C Pulse Rate 87 79 Respiratory Rate 12 Blood Pressure 104/46 L Pulse Oximetry 95 Oxygen Delivery Nasal Cannula Oxygen Flow Rate 4 06/01/25 14:04 06/01/25 14:20 06/01/25 16:00 Temperature Pulse Rate 88 80 81 Respiratory Rate 16 16 Blood Pressure Pulse Oximetry Oxygen Delivery Oxygen Flow Rate 06/01/25 17:08 06/01/25 17:35 06/01/25 18:25 Temperature 36.7 C 36.9 C 36.6 C Pulse Rate 77 75 81 Respiratory Rate 17 16 18 Blood Pressure 110/48 L 108/46 L 118/46 L Pulse Oximetry 96 98 97 Oxygen Delivery Oxygen Flow Rate 06/01/25 18:35 06/01/25 21:20 06/01/25 21:48 Temperature 36.5 C Pulse Rate 81 79 79 Respiratory Rate 18 18 18 Blood Pressure 135/48 L Pulse Oximetry 96 96 Oxygen Delivery Nasal Cannula Oxygen Flow Rate 2 06/01/25 21:58 06/01/25 22:00 06/01/25 22:00 Temperature Pulse Rate 82 78 Respiratory Rate 18 Blood Pressure Pulse Oximetry 90 Oxygen Delivery Nasal Cannula Oxygen Flow Rate 3 06/01/25 22:00 06/01/25 22:01 06/02/25 00:00 Temperature 36.5 C Pulse Rate 81 86 92 Respiratory Rate 18 Blood Pressure 135/48 L Pulse Oximetry 96 Oxygen Delivery Oxygen Flow Rate 06/02/25 03:05 06/02/25 04:00 06/02/25 06:00 Temperature 37.0 C Pulse Rate 75 77 71 Respiratory Rate 18 18 Blood Pressure 120/45 L Pulse Oximetry 99 Oxygen Delivery Oxygen Flow Rate 06/02/25 07:39 06/02/25 07:39 06/02/25 07:53 Temperature Pulse Rate 76 76 74 Respiratory Rate 20 20 20 Blood Pressure Pulse Oximetry 94 Oxygen Delivery Nasal Cannula Oxygen Flow Rate 4 Intake/Output Intake/Output: Intake & Output 05/30/25 05/31/25 06/01/25 06/02/25 23:59 23:59 23:59 23:59 Intake Total 867.9 3375.8 1820 300 Output Total 200 4650 2125 1150 Balance 667.9 -1274.2 -305 -850 Meds/Results Medications: Active Medications Generic Name Dose Route Start Last Admin Trade Name Freq PRN Reason Stop Dose Admin Acetaminophen 1,000 mg 05/30/25 20:49 06/01/25 22:17 Acetaminophen 500 Mg Tablet PO 1,000 mg Q6H PRN Administration Pain 1-3 or fever Acetylcysteine 200 mg 05/31/25 14:00 06/02/25 07:38 Acetylcysteine 20% Inhal Soln 800 Mg/4 Ml Vial INHALATION 200 mg Q6HRT GIOVANNY Administration Acyclovir 400 mg 05/30/25 21:05 06/02/25 08:57 Acyclovir 400 Mg Tablet PO 400 mg TID GIOVANNY Administration Albuterol/Ipratropium 3 ml 05/31/25 08:00 06/02/25 07:38 Ipratropium 0.5 Mg/Albuterol Sulfate 2.5 Mg Ampul.Neb 3 Ml INHALATION 3 ml Q6HRT GIOVANNY Administration Aspirin 81 mg 05/31/25 09:00 06/02/25 08:58 Aspirin 81 Mg Enteric Tablet PO 81 mg DAILY GIOVANNY Administration Atorvastatin Calcium 80 mg 05/31/25 09:00 06/02/25 08:57 Atorvastatin 40 Mg Tablet PO 80 mg DAILY GIOVANNY Administration Azithromycin 500 mg 06/03/25 09:00 Azithromycin 250 Mg Tablet PO DAILY GIOVANNY Baclofen 10 mg 05/30/25 20:49 Baclofen 10 Mg Tablet PO Q12H PRN muscle spasm Benzonatate 200 mg 05/31/25 09:00 06/02/25 08:57 Benzonatate 100 Mg Capsule PO 200 mg TID PRN Administration Cough Bupropion HCl 150 mg 05/30/25 21:10 06/02/25 08:58 Bupropion Hcl Sr (12 Hr) 150 Mg Tab PO 150 mg BID GIOVANNY Administration Enoxaparin Sodium 40 mg 05/31/25 09:00 06/02/25 08:56 Enoxaparin 40 Mg/0.4 Ml Syringe SUB-Q 40 mg DAILY GIOVANNY Administration Fenofibrate 145 mg 05/31/25 09:00 06/02/25 08:57 Fenofibrate Nanocrystallized 145 Mg Tablet PO 145 mg DAILY GIOVANNY Administration Furosemide 40 mg 05/31/25 09:00 06/02/25 08:56 Furosemide Inj 40 Mg/4 Ml Vial IV PUSH 40 mg DAILY GIOVANNY Administration Guaifenesin 1,200 mg 05/30/25 21:10 06/02/25 08:57 Guaifenesin 12 Hr 600 Mg Tabcr PO 1,200 mg Q12HR GIOVANNY Administration Hydroxyzine HCl 25 mg 05/30/25 20:49 06/02/25 08:58 Hydroxyzine Hcl 25 Mg Tablet PO 25 mg QID PRN Administration anxiety Azithromycin 500 mg/ Sodium 250 mls @ 250 mls/hr 05/31/25 15:00 06/01/25 16:30 Chloride IVPB 06/02/25 23:59 Infused Q24H GIOVANNY Infusion Meropenem 1 gm/ Sodium 100 mls @ 200 mls/hr 05/31/25 09:00 06/02/25 08:58 Chloride IVPB 200 mls/hr Q12H GIOVANNY Administration Linaclotide 290 mcg 05/31/25 06:30 06/02/25 06:19 Linaclotide 145 Mcg Capsule PO 290 mcg DAILY@0630 GIOVANNY Administration Loratadine 10 mg 07/08/25 21:06 Loratadine 10 Mg Tablet PO DAILY PRN allergies Lorazepam 0.5 mg 05/30/25 20:57 06/02/25 08:57 Lorazepam (*Crx) 0.5 Mg Tablet PO 0.5 mg BID PRN Administration anxiety Metoprolol Succinate 50 mg 05/30/25 21:10 06/01/25 22:01 Metoprolol Succinate Ext Rel 50 Mg Tabcr PO 50 mg HS GIOVANNY Administration Morphine Sulfate 30 mg 05/31/25 09:00 06/02/25 08:57 Morphine Sulfate (*Crx) 30 Mg Tabcr PO 30 mg QAM GIOVANNY Administration Multivitamins Therapeutic 1 tablet 05/31/25 09:00 06/02/25 08:58 Multivitamins Therapeutic Tab (*Bkc) PO 1 tablet DAILY GIOVANNY Administration Nitroglycerin 0.4 mg 05/30/25 20:57 Nitroglycerin Sl 0.4 Mg Tablet SUBLINGUAL Q5M PRN chest pain Non-Formulary Medication 200 mg 05/31/25 09:00 Sulindac PO 06/30/25 08:59 BID [facility] Pantoprazole Sodium 40 mg 05/31/25 09:00 06/02/25 08:57 Pantoprazole 40 Mg Tablet PO 40 mg QAM GIOVANNY Administration Polyethylene Glycol 17 gm 05/30/25 20:49 06/02/25 08:58 Polyethylene Glycol 3350 17 Gm Powd.Pack PO 17 gm QAM PRN Administration Constipation Sertraline HCl 50 mg 05/31/25 09:00 06/02/25 08:57 Sertraline Hcl 50 Mg Tablet PO 50 mg DAILY GIOVANNY Administration Simethicone 125 mg 05/30/25 20:49 06/02/25 08:58 Simethicone 125 Mg Chew Tab PO 125 mg QID PRN Administration Gas Sodium Chloride 6 ml 06/01/25 05:00 06/02/25 08:56 Sodium Chlor 3% 15 Ml Neb (Respiratory Therapy) INHALATION 06/03/25 05:01 Not Given DAILY@0500 [facility] Tamsulosin HCl 0.4 mg 05/30/25 21:15 06/02/25 08:58 Tamsulosin Hcl 0.4 Mg Capsule PO 0.4 mg BID GIOVANNY Administration Tobramycin/Dexamethasone 1 drop 05/30/25 21:00 06/02/25 08:59 Tobramycin/Dexamethasone Op 2.5 Ml Btl EACH EYE 1 drop QID GIOVANNY Administration Trazodone HCl 100 mg 05/30/25 21:00 06/01/25 22:00 Trazodone Hcl 50 Mg Tablet PO 100 mg HS GIOVANNY Administration Radiology Results: ITS Impressions Chest X-Ray 05/30/25 13:09 Impression: Probable mild pulmonary edema, worse in the right lung than left, versus possibly pneumonia. Correlate clinically. Small right pleural effusion. Chest CT 06/01/25 15:19 IMPRESSION: Worsening appearance of the bilateral lung short, right greater than left, with volume loss and additional findings in the dependent portion of the right chest for which a developing rind is suspected. Findings consistent with patient's known SNEHA infection, as detailed above. Continued aspiration is also suspected with residual (likely) aspirated products within the right inferior lobar bronchus. Worsening mediastinal lymphadenopathy is also present, as detailed above. Labs Labs: Laboratory Results - last 24 hr 06/01/25 06/01/25 06/02/25 05:16 13:12 05:16 WBC 8.7 7.9 RBC 2.40 L 2.84 L Hgb 6.9 L* 8.1 L Hct 23.4 L 26.9 L MCV 97.5 94.7 MCH 28.8 28.5 MCHC 29.5 L 30.1 L RDW 15.7 H 15.8 H Plt Count 177 165 MPV 10.9 H 9.8 Immature Gran % (Auto) 0.9 H 0.6 H Neut % (Auto) 79.0 H 79.8 H Lymph % (Auto) 8.4 L 7.3 L [place] % (Auto) 10.3 H 10.0 H Eos % (Auto) 1.3 2.2 Baso % (Auto) 0.1 L 0.1 L Lymph # (Auto) 0.73 L 0.58 L [place] # (Auto) 0.9 H 0.8 H Eos # (Auto) 0.1 0.2 Baso # (Auto) 0.0 0.0 Abs Immat Gran (auto) 0.08 H 0.05 H Absolute Neuts (auto) 6.9 H 6.3 Absolute Nucleated RBC 0.000 0.000 Band Neutrophils % Not Reportable Nucleated RBC % 0.0 0.0 Platelet Estimate Adequate Hypochromasia 1+ Anisocytosis 1+ Schistocytes None seen Sodium 135 L 133 L Potassium 4.0 4.2 Chloride 100 99 Carbon Dioxide 28 27 Anion Gap 7 7 BUN 24 H 25 H Creatinine 1.61 H 1.47 H Estim Creat Clear Calc 33 36 Estimated GFR 41 L 46 L Glucose 101 96 Calcium 8.9 8.9 IgG 652 L IgA 227 IgM 67 HIV 1&2 Ab/P24 Ag 4thGn Negative Blood Type O Negative Antibody Screen Negative Crossmatch See Detail
--- NOTE | 2025-06-02 10:16 | PC.NURSE ---
RN notified and updated [facility] of patient's status.
--- NOTE | 2025-06-02 12:19 | P.PNIM_ITS ---
Progress Note: A&P Assessment and Plan (1) Combined systolic and diastolic congestive heart failure: Qualifiers: Heart failure chronicity: acute on chronic Qualified Code(s): I50.43 - Acute on chronic combined systolic (congestive) and diastolic (congestive) heart failure Code(s): I50.40 - Unspecified combined systolic (congestive) and diastolic (congestive) heart failure Status: Acute (2) Pneumonia: Qualifiers: Pneumonia type: due to unspecified organism Laterality: right Lung location: unspecified part of lung Qualified Code(s): J18.9 - Pneumonia, unspecified organism Code(s): J18.9 - Pneumonia, unspecified organism Status: Acute (3) Dyspnea on exertion: Code(s): R06.09 - Other forms of dyspnea Status: Acute (4) SNEHA (mycobacterium avium-intracellulare): Code(s): A31.0 - Pulmonary mycobacterial infection Status: Acute (5) Chronic hypoxic respiratory failure, on home oxygen therapy: Code(s): J96.11 - Chronic respiratory failure with hypoxia; Z99.81 - Dependence on supplemental oxygen Status: Acute (6) Chronic pulmonary aspergillosis: Code(s): B44.1 - Other pulmonary aspergillosis Status: Acute Plan Acute respiratory failure with hypoxemia Community-acquired pneumonia History of polymicrobial infections in the past. Pulmonology has been consulted. Continue Rocephin 2 g IV daily, 500 mg of azithromycin and Bactrim. Blood cultures have been obtained and are pending. Flu RSV and COVID PCR were negative. continue scheduled nebulizers. Chronic patient is on 4 L oxygen Acute on chronic combined heart failure Patient has dyspnea X-ray shows pulmonary congestion Echocardiogram on echocardiogram October 2024 Left ventricular systolic function is mildly reduced with an ejection fraction by Biplane Method of Discs of 49 %. left ventricular wall motion shows inf hypokinesis. The left ventricular diastolic function is grade I diastolic dysfunction. Received furosemide 40 mg IV push once on furosemide 40 mg IV daily Follow-up input output Patient has negative imbalance 310ml L today f/u BMP Patient is on waiting list to be transferred to [facility] Subjective Date/time seen: 06/02/25 12:19 Interval history: I saw examined patient today. Patient feels comfortable in chair. Patient has general weakness, denies focal weakness, headache, slurred speech. Patient still has cough with scant phlegm. Exam Narrative: GENERAL: Pleasant, in no acute distress. Well-nourished. - EYES: EOMI. Anicteric. - HENT: Moist mucous membranes. - LUNGS: Coarse breath sound bilaterall y. - CARDIOVASCULAR: Regular rate and rhyth m. No murmur. No JVD. - ABDOMEN: Soft, non-tender and non-dist ended. No palpable masses. - EXTREMITIES: No edema. Peripheral puls es 2+. Non-tender. - NEUROLOGIC: No focal neurological defi cits. CN II-XII grossly intact. - PSYCHIATRIC: Awake, Alert and oriented x 3. Appropriate mood and affect. - SKIN: No rashes or lesions. Warm. - LYMPH: No cervical lymphadenopathy. Objective Data Vital Signs Vital Signs: Vital Signs - 24 hr 06/01/25 14:00 06/01/25 14:04 06/01/25 14:20 Temperature 97.9 F Pulse Rate 79 88 80 Respiratory Rate 12 16 16 Blood Pressure 104/46 L Pulse Oximetry 95 Oxygen Delivery Oxygen Flow Rate 06/01/25 16:00 06/01/25 17:08 06/01/25 17:35 Temperature 98.1 F 98.4 F Pulse Rate 81 77 75 Respiratory Rate 17 16 Blood Pressure 110/48 L 108/46 L Pulse Oximetry 96 98 Oxygen Delivery Oxygen Flow Rate 06/01/25 18:25 06/01/25 18:35 06/01/25 21:20 Temperature 97.9 F 97.7 F Pulse Rate 81 81 79 Respiratory Rate 18 18 18 Blood Pressure 118/46 L 135/48 L Pulse Oximetry 97 96 96 Oxygen Delivery Nasal Cannula Oxygen Flow Rate 2 06/01/25 21:48 06/01/25 21:58 06/01/25 22:00 Temperature Pulse Rate 79 82 Respiratory Rate 18 18 Blood Pressure Pulse Oximetry 90 Oxygen Delivery Nasal Cannula Oxygen Flow Rate 3 06/01/25 22:00 06/01/25 22:00 06/01/25 22:01 Temperature 97.7 F Pulse Rate 78 81 86 Respiratory Rate 18 Blood Pressure 135/48 L Pulse Oximetry 96 Oxygen Delivery Oxygen Flow Rate 06/02/25 00:00 06/02/25 03:05 06/02/25 04:00 Temperature Pulse Rate 92 75 77 Respiratory Rate 18 Blood Pressure Pulse Oximetry Oxygen Delivery Oxygen Flow Rate 06/02/25 06:00 06/02/25 07:39 06/02/25 07:39 Temperature 98.6 F Pulse Rate 71 76 76 Respiratory Rate 18 20 20 Blood Pressure 120/45 L Pulse Oximetry 99 94 Oxygen Delivery Nasal Cannula Oxygen Flow Rate 4 06/02/25 07:53 06/02/25 08:40 06/02/25 08:40 Temperature Pulse Rate 74 81 Respiratory Rate 20 Blood Pressure Pulse Oximetry 92 Oxygen Delivery Nasal Cannula Oxygen Flow Rate 2 06/02/25 12:00 Temperature Pulse Rate 86 Respiratory Rate Blood Pressure Pulse Oximetry Oxygen Delivery Oxygen Flow Rate Intake/Output Intake/Output: Intake & Output 05/30/25 05/31/25 06/01/25 06/02/25 23:59 23:59 23:59 23:59 Intake Total 867.9 3375.8 1820 780 Output Total 200 4650 2125 1150 Balance 667.9 -1274.2 -305 -370 Meds/Results Medications: Active Medications Generic Name Dose Route Start Last Admin Trade Name Freq PRN Reason Stop Dose Admin Acetaminophen 1,000 mg 05/30/25 20:49 06/01/25 22:17 Acetaminophen 500 Mg Tablet PO 1,000 mg Q6H PRN Administration Pain 1-3 or fever Acyclovir 400 mg 05/30/25 21:05 06/02/25 08:57 Acyclovir 400 Mg Tablet PO 400 mg TID [facility] Administration Albuterol/Ipratropium 3 ml 06/02/25 12:00 Ipratropium 0.5 Mg/Albuterol Sulfate 2.5 Mg Ampul.Neb 3 Ml INHALATION [id number] [facility] Aspirin 81 mg 05/31/25 09:00 06/02/25 08:58 Aspirin 81 Mg Enteric Tablet PO 81 mg DAILY GIOVANNY Administration Atorvastatin Calcium 80 mg 05/31/25 09:00 06/02/25 08:57 Atorvastatin 40 Mg Tablet PO 80 mg DAILY [facility] Administration Azithromycin 500 mg 06/03/25 09:00 Azithromycin 250 Mg Tablet PO DAILY [facility] Baclofen 10 mg 05/30/25 20:49 Baclofen 10 Mg Tablet PO Q12H PRN muscle spasm Benzonatate 200 mg 05/31/25 09:00 06/02/25 08:57 Benzonatate 100 Mg Capsule PO 200 mg TID PRN Administration Cough Bupropion HCl 150 mg 05/30/25 21:10 06/02/25 08:58 Bupropion Hcl Sr (12 Hr) 150 Mg Tab PO 150 mg BID GIOVANNY Administration Enoxaparin Sodium 40 mg 05/31/25 09:00 06/02/25 08:56 Enoxaparin 40 Mg/0.4 Ml Syringe SUB-Q 40 mg DAILY GIOVANNY Administration Fenofibrate 145 mg 05/31/25 09:00 06/02/25 08:57 Fenofibrate Nanocrystallized 145 Mg Tablet PO 145 mg DAILY GIOVANNY Administration Furosemide 40 mg 05/31/25 09:00 06/02/25 08:56 Furosemide Inj 40 Mg/4 Ml Vial IV PUSH 40 mg DAILY GIOVANNY Administration Guaifenesin 1,200 mg 05/30/25 21:10 06/02/25 08:57 Guaifenesin 12 Hr 600 Mg Tabcr PO 1,200 mg Q12HR GIOVANNY Administration Hydroxyzine HCl 25 mg 05/30/25 20:49 06/02/25 08:58 Hydroxyzine Hcl 25 Mg Tablet PO 25 mg QID PRN Administration anxiety Azithromycin 500 mg/ Sodium 250 mls @ 250 mls/hr 05/31/25 15:00 06/01/25 16:30 Chloride IVPB 06/02/25 23:59 Infused Q24H GIOVANNY Infusion Meropenem 1 gm/ Sodium 100 mls @ 200 mls/hr 05/31/25 09:00 06/02/25 08:58 Chloride IVPB 200 mls/hr Q12H GI[facility]ANNY Administration Linaclotide 290 mcg 05/31/25 06:30 06/02/25 06:19 Linaclotide 145 Mcg Capsule PO 290 mcg DAILY@0630 GIOVANNY Administration Loratadine 10 mg 05/30/25 21:06 Loratadine 10 Mg Tablet PO DAILY PRN allergies Lorazepam 0.5 mg 05/30/25 20:57 06/02/25 08:57 Lorazepam (*Crx) 0.5 Mg Tablet PO 0.5 mg BID PRN Administration anxiety Metoprolol Succinate 50 mg 05/30/25 21:10 06/01/25 22:01 Metoprolol Succinate Ext Rel 50 Mg Tabcr PO 50 mg HS GIOVANNY Administration Morphine Sulfate 30 mg 05/31/25 09:00 06/02/25 08:57 Morphine Sulfate (*Crx) 30 Mg Tabcr PO 30 mg QAM GIOVANNY Administration Multivitamins Therapeutic 1 tablet 05/31/25 09:00 06/02/25 08:58 Multivitamins Therapeutic Tab (*Bkc) PO 1 tablet DAILY GIOVANNY Administration Nitroglycerin 0.4 mg 05/30/25 20:57 Nitroglycerin Sl 0.4 Mg Tablet SUBLINGUAL Q5M PRN chest pain Non-Formulary Medication 200 mg 05/31/25 09:00 Sulindac PO 06/30/25 08:59 BID GIOVANNY Pantoprazole Sodium 40 mg 05/31/25 09:00 06/02/25 08:57 Pantoprazole 40 Mg Tablet PO 40 mg QAM GIOVANNY Administration Polyethylene Glycol 17 gm 05/30/25 20:49 06/02/25 08:58 Polyethylene Glycol 3350 17 Gm Powd.Pack PO 17 gm QAM PRN Administration Constipation Sertraline HCl 50 mg 05/31/25 09:00 06/02/25 08:57 Sertraline Hcl 50 Mg Tablet PO 50 mg DAILY GIOVANNY Administration Simethicone 125 mg 05/30/25 20:49 06/02/25 08:58 Simethicone 125 Mg Chew Tab PO 125 mg QID PRN Administration Gas Sodium Chloride 6 ml 06/01/25 05:00 06/02/25 08:56 Sodium Chlor 3% 15 Ml Neb (Respiratory Therapy) INHALATION 06/03/25 05:01 Not Given DAILY@0500 [facility] Tamsulosin HCl 0.4 mg 05/30/25 21:15 06/02/25 08:58 Tamsulosin Hcl 0.4 Mg Capsule PO 0.4 mg BID GIOVANNY Administration Tobramycin/Dexamethasone 1 drop 05/30/25 21:00 06/02/25 08:59 Tobramycin/Dexamethasone Op 2.5 Ml Btl EACH EYE 1 drop QID GIOVANNY Administration Trazodone HCl 100 mg 05/30/25 21:00 06/01/25 22:00 Trazodone Hcl 50 Mg Tablet PO 100 mg HS GIOVANNY Administration Radiology Results: ITS Impressions Chest X-Ray 05/30/25 13:09 Impression: Probable mild pulmonary edema, worse in the right lung than left, versus possibly pneumonia. Correlate clinically. Small right pleural effusion. Chest CT 06/01/25 15:19 IMPRESSION: Worsening appearance of the bilateral lung short, right greater than left, with volume loss and additional findings in the dependent portion of the right chest for which a developing rind is suspected. Findings consistent with patient's known SNEHA infection, as detailed above. Continued aspiration is also suspected with residual (likely) aspirated products within the right inferior lobar bronchus. Worsening mediastinal lymphadenopathy is also present, as detailed above. Labs Labs: Laboratory Results - last 24 hr 06/01/25 06/01/25 06/02/25 05:16 13:12 05:16 WBC 8.7 7.9 RBC 2.40 L 2.84 L Hgb 6.9 L* 8.1 L Hct 23.4 L 26.9 L MCV 97.5 94.7 MCH 28.8 28.5 MCHC 29.5 L 30.1 L RDW 15.7 H 15.8 H Plt Count 177 165 MPV 10.9 H 9.8 Immature Gran % (Auto) 0.9 H 0.6 H Neut % (Auto) 79.0 H 79.8 H Lymph % (Auto) 8.4 L 7.3 L [place] % (Auto) 10.3 H 10.0 H Eos % (Auto) 1.3 2.2 Baso % (Auto) 0.1 L 0.1 L Lymph # (Auto) 0.73 L 0.58 L [place] # (Auto) 0.9 H 0.8 H Eos # (Auto) 0.1 0.2 Baso # (Auto) 0.0 0.0 Abs Immat Gran (auto) 0.08 H 0.05 H Absolute Neuts (auto) 6.9 H 6.3 Absolute Nucleated RBC 0.000 0.000 Band Neutrophils % Not Reportable Nucleated RBC % 0.0 0.0 Platelet Estimate Adequate Hypochromasia 1+ Anisocytosis 1+ Schistocytes None seen Sodium 133 L Potassium 4.2 Chloride 99 Carbon Dioxide 27 Anion Gap 7 BUN 25 H Creatinine 1.47 H Estim Creat Clear Calc 36 Estimated GFR 46 L Glucose 96 Calcium 8.9 IgG 652 L IgA 227 IgM 67 HIV 1&2 Ab/P24 Ag 4thGn Negative Blood Type O Negative Antibody Screen Negative Crossmatch See Detail
[2025-06-02] MEDS: AZITHROMYCIN IV 500 MG in SODIUM CHLORIDE 0.9% IV 250 ML IVPB (13:41)
[2025-06-02 14:08] LABS: IgG, Subclass 1 353 mg/dL (248-810); IgG, Subclass 2 141 mg/dL (130-555); IgG, Subclass 3 21 mg/dL (15-102); IgG, Subclass 4 28 mg/dL (2-96); Immunoglobulin G, Qn 666 mg/dL (603-1613)
[2025-06-02] MEDS: METOPROLOL SUCCINATE EXT REL 50 MG TABCR PO (20:56)
--- NOTE | 2025-06-02 23:07 | PC.NURSE ---
[facility], UPDATED ON PATIENT CURRENT STATUS. NO BED AVAILABLE AT THIS TIME.
[2025-06-03] VITALS (20 sets, daily range): BP systolic 113–157; BP diastolic 46–72; PULSE 69–89; RESP 16–22; TEMP 36.4–37; O2SAT 93–97
[2025-06-03] MEDS: SODIUM CHLOR 3% 15 ML NEB (RESPIRATORY THERAPY) 6 ML INHALATION (05:19)
--- NOTE | 2025-06-03 05:25 | PCRCNOTE ---
Patient unable to provide a sputum sample.
[2025-06-03] MEDS: LINACLOTIDE 145 MCG CAPSULE 290 MCG PO (06:21)
[2025-06-03 07:03] LABS: Hematocrit 26.9 % (42.0-52.0); Hemoglobin 8.0 g/dL (14.0-18.0); Immature Granulocyte Percent A 1.0 % (0-0.5); Lymphocytes Absolute Auto 0.72 K/mm3 (0.9-3.2); Mean Corpuscular HGB Conc 29.7 g/dl (32-36); Mean Corpuscular Hemoglobin 28.0 pg (26-34); Mean Corpuscular Volume 94.1 fl (80-100); Nucleated Red Blood Cells Absolute Auto 0.000 K/mm3 (0.0-0.012); Nucleated Red Blood Cells Perc 0.0 % (0.0-0.2); Platelet Count Result 187 k/mm3 (150-375); Red Blood Count 2.86 M/mm3 (4.6-6.20); White Blood Count 9.0 K/mm3 (4.5-10.0)
[2025-06-03 07:24] LABS: Anion Gap 7 mmol/L (4-12); Blood Urea Nitrogen 25 mg/dL (9-20); Calcium 8.9 mg/dL (8.4-10.2); Carbon Dioxide 27 mmol/L (22-30); Chloride 100 mmol/L (98-107); Estimated CRCL calculation 41 ml/min; Estimated Glomerular Filt Rate 55; Glucose 88 mg/dL (65-110); Potassium 4.2 mmol/L (3.4-5.0); Sodium 134 mmol/L (137-145)
[2025-06-03] MEDS: IPRATROPIUM 0.5 MG/ALBUTEROL SULFATE 2.5 MG AMPUL.NEB 3 ML INHALATION ×4 (07:30→19:53)
[2025-06-03 07:52] LABS: Hypochromasia 1+; Schistocytes None Seen
[2025-06-03] MEDS: MEROPENEM 1 GM in SODIUM CHLORIDE 0.9% IV 100 ML 200 ML IVPB ×2 (08:39→21:25)
[2025-06-03] MEDS: AZITHROMYCIN 250 MG TABLET 500 MG PO (08:40)
[2025-06-03] MEDS: BENZONATATE 100 MG CAPSULE 200 MG PO (08:40)
[2025-06-03] MEDS: LORATADINE 10 MG TABLET PO (08:40)
[2025-06-03] MEDS: PANTOPRAZOLE 40 MG TABLET PO (08:40)
[2025-06-03] MEDS: SERTRALINE HCL 50 MG TABLET PO (08:40)
[2025-06-03] MEDS: ACYCLOVIR 400 MG TABLET PO ×3 (08:40→16:43)
[2025-06-03] MEDS: SIMETHICONE 125 MG CHEW TAB PO (08:40)
[2025-06-03] MEDS: TAMSULOSIN HCL 0.4 MG CAPSULE PO ×2 (08:40→16:43)
[2025-06-03] MEDS: guaiFENesin 12 HR 600 MG TABCR 1200 MG PO ×2 (08:40→21:24)
[2025-06-03] MEDS: FENOFIBRATE NANOCRYSTALLIZED 145 MG TABLET PO (08:40)
[2025-06-03] MEDS: ATORVASTATIN 40 MG TABLET 80 MG PO (08:40)
[2025-06-03] MEDS: ENOXAPARIN 40 MG/0.4 ML SYRINGE SUB-Q (08:41)
[2025-06-03] MEDS: TOBRAMYCIN/DEXAMETHASONE OP 2.5 ML BTL 1 DROP EACH EYE ×4 (08:41→21:25)
[2025-06-03] MEDS: MORPHINE SULFATE (*CRX) 30 MG TABCR PO (08:41)
[2025-06-03] MEDS: MULTIVITAMINS THERAPEUTIC TAB (*BKC) 1 TABLET PO (08:41)
[2025-06-03] MEDS: FUROSEMIDE INJ 40 MG/4 ML VIAL IV PUSH (08:41)
[2025-06-03] MEDS: ASPIRIN 81 MG ENTERIC TABLET PO (08:41)
[2025-06-03] MEDS: buPROPion HCL SR (12 HR) 150 MG TAB PO ×2 (08:41→16:43)
--- NOTE | 2025-06-03 09:08 | PC.NURSE ---
RN spoke to and updated Nisreen on patient's status.
--- NOTE | 2025-06-03 11:29 | P.PNIM_ITS ---
Progress Note: A&P Assessment and Plan (1) Combined systolic and diastolic congestive heart failure: Qualifiers: Heart failure chronicity: acute on chronic Qualified Code(s): I50.43 - Acute on chronic combined systolic (congestive) and diastolic (congestive) heart failure Code(s): I50.40 - Unspecified combined systolic (congestive) and diastolic (congestive) heart failure Status: Acute (2) Pneumonia: Qualifiers: Pneumonia type: due to unspecified organism Laterality: right Lung location: unspecified part of lung Qualified Code(s): J18.9 - Pneumonia, unspecified organism Code(s): J18.9 - Pneumonia, unspecified organism Status: Acute (3) Dyspnea on exertion: Code(s): R06.09 - Other forms of dyspnea Status: Acute (4) SNEHA (mycobacterium avium-intracellulare): Code(s): A31.0 - Pulmonary mycobacterial infection Status: Acute (5) Chronic hypoxic respiratory failure, on home oxygen therapy: Code(s): J96.11 - Chronic respiratory failure with hypoxia; Z99.81 - Dependence on supplemental oxygen Status: Acute (6) Chronic pulmonary aspergillosis: Code(s): B44.1 - Other pulmonary aspergillosis Status: Acute Plan Acute respiratory failure with hypoxemia Community-acquired pneumonia History of polymicrobial infections in the past. Pulmonology has been consulted. Continue Rocephin 2 g IV daily, 500 mg of azithromycin and Bactrim. Blood cultures have been obtained and are pending. Flu RSV and COVID PCR were negative. continue scheduled nebulizers. Chronic patient is on 4 L oxygen Acute on chronic combined heart failure Patient has dyspnea X-ray shows pulmonary congestion Echocardiogram on echocardiogram October 2024 Left ventricular systolic function is mildly reduced with an ejection fraction by Biplane Method of Discs of 49 %. left ventricular wall motion shows inf hypokinesis. The left ventricular diastolic function is grade I diastolic dysfunction. Received furosemide 40 mg IV push once on furosemide 40 mg IV daily Follow-up input output Patient has negative imbalance 310ml L today Patient's euvolemia, discontinue IV furosemide, continue furosemide 40 mg daily p.o.06/03 Loose stool Hold MiraLax If diarrhea continue, check c diff Patient is on waiting list to be transferred to [facility] Subjective Date/time seen: 06/03/25 11:29 Interval history: I saw examined patient today. Patient has loose stool today, denies nausea vomiting abdomen pain. Patient has general weakness. Patient still has cough with scant phlegm. Exam Narrative: GENERAL: Pleasant, in no acute distress. Well-nourished. - EYES: EOMI. Anicteric. - HENT: Moist mucous membranes. - LUNGS: Coarse breath sound bilaterall y. - CARDIOVASCULAR: Regular rate and rhyth m. No murmur. No JVD. - ABDOMEN: Soft, non-tender and non-dist ended. No palpable masses. - EXTREMITIES: No edema. Peripheral puls es 2+. Non-tender. - NEUROLOGIC: No focal neurological defi cits. CN II-XII grossly intact. - PSYCHIATRIC: Awake, Alert and oriented x 3. Appropriate mood and affect. - SKIN: No rashes or lesions. Warm. - LYMPH: No cervical lymphadenopathy. Objective Data Vital Signs Vital Signs: Vital Signs - 24 hr 06/02/25 12:00 06/02/25 12:23 06/02/25 12:23 Temperature Pulse Rate 86 86 86 Respiratory Rate 20 20 Blood Pressure Pulse Oximetry 98 Oxygen Delivery Nasal Cannula Oxygen Flow Rate 2.5 Fraction of Inspired Oxygen 06/02/25 12:32 06/02/25 14:00 06/02/25 15:13 Temperature 98.4 F Pulse Rate 89 87 Respiratory Rate 20 20 Blood Pressure 109/40 L Pulse Oximetry 96 Oxygen Delivery Nasal Cannula Oxygen Flow Rate 3 Fraction of Inspired Oxygen 06/02/25 16:00 06/02/25 20:45 06/02/25 20:45 Temperature Pulse Rate 86 70 Respiratory Rate Blood Pressure Pulse Oximetry 95 Oxygen Delivery Nasal Cannula Oxygen Flow Rate 4 Fraction of Inspired Oxygen 06/02/25 20:56 06/02/25 21:23 06/02/25 21:23 Temperature Pulse Rate 70 85 Respiratory Rate 18 Blood Pressure Pulse Oximetry 97 Oxygen Delivery Nasal Cannula Oxygen Flow Rate 3 Fraction of Inspired Oxygen 06/02/25 21:32 06/02/25 22:00 06/03/25 00:00 Temperature 98.2 F Pulse Rate 88 70 71 Respiratory Rate 18 18 Blood Pressure 101/88 Pulse Oximetry 96 Oxygen Delivery Oxygen Flow Rate Fraction of Inspired Oxygen 06/03/25 04:00 06/03/25 06:00 06/03/25 07:30 Temperature 97.6 F Pulse Rate 77 78 78 Respiratory Rate 16 18 Blood Pressure 154/69 H Pulse Oximetry 93 Oxygen Delivery Oxygen Flow Rate Fraction of Inspired Oxygen 06/03/25 07:31 Temperature Pulse Rate Respiratory Rate Blood Pressure Pulse Oximetry 96 Oxygen Delivery Nasal Cannula Oxygen Flow Rate 2 Fraction of Inspired Oxygen 28 Intake/Output Intake/Output: Intake & Output 05/31/25 06/01/25 06/02/25 06/03/25 23:59 23:59 23:59 23:59 Intake Total 3375.8 1820 1700 1300 Output Total 4650 2125 1750 2100 [facility]1274.2 -305 -50 -800 Meds/Results Medications: Active Medications Generic Name Dose Route Start Last Admin Trade Name Freq PRN Reason Stop Dose Admin Acetaminophen 1,000 mg 05/30/25 20:49 06/01/25 22:17 Acetaminophen 500 Mg Tablet PO 1,000 mg Q6H PRN Administration Pain 1-3 or fever Acyclovir 400 mg 05/30/25 21:05 06/03/25 08:40 Acyclovir 400 Mg Tablet PO 400 mg TID GIOVANNY Administration Albuterol/Ipratropium 3 ml 06/02/25 12:00 06/03/25 08:08 Ipratropium 0.5 Mg/Albuterol Sulfate 2.5 Mg Ampul.Neb 3 Ml INHALATION Not Given [id number] [facility] Aspirin 81 mg 05/31/25 09:00 06/03/25 08:41 Aspirin 81 Mg Enteric Tablet PO 81 mg DAILY GIOVANNY Administration Atorvastatin Calcium 80 mg 05/31/25 09:00 06/03/25 08:40 Atorvastatin 40 Mg Tablet PO 80 mg DAILY GIOVANNY Administration Azithromycin 500 mg 06/03/25 09:00 06/03/25 08:40 Azithromycin 250 Mg Tablet PO 500 mg DAILY GIOVANNY Administration Baclofen 10 mg 05/30/25 20:49 Baclofen 10 Mg Tablet PO Q12H PRN muscle spasm Benzonatate 200 mg 05/31/25 09:00 06/03/25 08:40 Benzonatate 100 Mg Capsule PO 200 mg TID PRN Administration Cough Bupropion HCl 150 mg 05/30/25 21:10 06/03/25 08:41 Bupropion Hcl Sr (12 Hr) 150 Mg Tab PO 150 mg BID GIOVANNY Administration Enoxaparin Sodium 40 mg 05/31/25 09:00 06/03/25 08:41 Enoxaparin 40 Mg/0.4 Ml Syringe SUB-Q 40 mg DAILY GIOVANNY Administration Fenofibrate 145 mg 05/31/25 09:00 06/03/25 08:40 Fenofibrate Nanocrystallized 145 Mg Tablet PO 145 mg DAILY [facility]OVANNY Administration Furosemide 40 mg 05/31/25 09:00 06/03/25 08:41 Furosemide Inj 40 Mg/4 Ml Vial IV PUSH 40 mg DAILY [facility]NY Administration Guaifenesin 1,200 mg 05/30/25 21:10 06/03/25 08:40 Guaifenesin 12 Hr 600 Mg Tabcr PO 1,200 mg Q12HR [facility]ANNY Administration Hydroxyzine HCl 25 mg 05/30/25 20:49 06/03/25 08:40 Hydroxyzine Hcl 25 Mg Tablet PO 25 mg QID PRN Administration anxiety Meropenem 1 gm/ Sodium 100 mls @ 200 mls/hr 05/31/25 09:00 06/03/25 08:39 Chloride IVPB 200 mls/hr Q12H [facility] Administration Linaclotide 290 mcg 05/31/25 06:30 06/03/25 06:21 Linaclotide 145 Mcg Capsule PO 290 mcg DAILY@0630 [facility]NY Administration Loratadine 10 mg 05/30/25 21:06 06/03/25 08:40 Loratadine 10 Mg Tablet PO 10 mg DAILY PRN Administration allergies Lorazepam 0.5 mg 05/30/25 20:57 06/02/25 17:22 Lorazepam (*Crx) 0.5 Mg Tablet PO 0.5 mg BID PRN Administration anxiety Metoprolol Succinate 50 mg 05/30/25 21:10 06/02/25 20:56 Metoprolol Succinate Ext Rel 50 Mg Tabcr PO 50 mg HS GIOVANNY Administration Morphine Sulfate 30 mg 05/31/25 09:00 06/03/25 08:41 Morphine Sulfate (*Crx) 30 Mg Tabcr PO 30 mg QAM GI[facility]ANNY Administration Multivitamins Therapeutic 1 tablet 05/31/25 09:00 06/03/25 08:41 Multivitamins Therapeutic Tab (*Bkc) PO 1 tablet DAILY GIOVANNY Administration Nitroglycerin 0.4 mg 05/30/25 20:57 Nitroglycerin Sl 0.4 Mg Tablet SUBLINGUAL Q5M PRN chest pain Non-Formulary Medication 200 mg 05/31/25 09:00 Sulindac PO 06/30/25 08:59 BID GIOVANNY Pantoprazole Sodium 40 mg 05/31/25 09:00 06/03/25 08:40 Pantoprazole 40 Mg Tablet PO 40 mg QAM GIOVANNY Administration Polyethylene Glycol 17 gm 05/30/25 20:49 06/03/25 08:40 Polyethylene Glycol 3350 17 Gm Powd.Pack PO 17 gm QAM PRN Administration Constipation Sertraline HCl 50 mg 05/31/25 09:00 06/03/25 08:40 Sertraline Hcl 50 Mg Tablet PO 50 mg DAILY GIOVANNY Administration Simethicone 125 mg 05/30/25 20:49 06/03/25 08:40 Simethicone 125 Mg Chew Tab PO 125 mg QID PRN Administration Gas Tamsulosin HCl 0.4 mg 05/30/25 21:15 06/03/25 08:40 Tamsulosin Hcl 0.4 Mg Capsule PO 0.4 mg BID GIOVANNY Administration Tobramycin/Dexamethasone 1 drop 05/30/25 21:00 06/03/25 08:41 Tobramycin/Dexamethasone Op 2.5 Ml Btl EACH EYE 1 drop QID GIOVANNY Administration Trazodone HCl 100 mg 05/30/25 21:00 06/02/25 20:56 Trazodone Hcl 50 Mg Tablet PO 100 mg HS GIOVANNY Administration Radiology Results: ITS Impressions Chest X-Ray 05/30/25 13:09 Impression: Probable mild pulmonary edema, worse in the right lung than left, versus possibly pneumonia. Correlate clinically. Small right pleural effusion. Chest CT 06/01/25 15:19 IMPRESSION: Worsening appearance of the bilateral lung short, right greater than left, with volume loss and additional findings in the dependent portion of the right chest for which a developing rind is suspected. Findings consistent with patient's known SNEHA infection, as detailed above. Continued aspiration is also suspected with residual (likely) aspirated products within the right inferior lobar bronchus. Worsening mediastinal lymphadenopathy is also present, as detailed above. Labs Labs: Laboratory Results - last 24 hr 06/01/25 06/03/25 05:16 05:23 WBC 9.0 RBC 2.86 L Hgb 8.0 L Hct 26.9 L MCV 94.1 MCH 28.0 MCHC 29.7 L RDW 15.6 H Plt Count 187 MPV 10.5 H Immature Gran % (Auto) 1.0 H Neut % (Auto) 73.2 H Lymph % (Auto) 8.0 L [place] % (Auto) 12.7 H Eos % (Auto) 4.9 H Baso % (Auto) 0.2 Lymph # (Auto) 0.72 L [place] # (Auto) 1.1 H Eos # (Auto) 0.4 H Baso # (Auto) 0.0 Abs Immat Gran (auto) 0.09 H Absolute Neuts (auto) 6.6 Absolute Nucleated RBC 0.000 Band Neutrophils % Not Reportable Nucleated RBC % 0.0 Platelet Estimate Adequate Hypochromasia 1+ Schistocytes None seen Sodium 134 L Potassium 4.2 Chloride 100 Carbon Dioxide 27 Anion Gap 7 BUN 25 H Creatinine 1.25 Estim Creat Clear Calc 41 Estimated GFR 55 L Glucose 88 Calcium 8.9 IgG 666 IgG Subclass 1 353 IgG Subclass 2 141 IgG Subclass 3 21 IgG Subclass 4 28
[2025-06-03] MEDS: LORazepam (*CRX) 0.5 MG TABLET PO (13:10)
--- NOTE | 2025-06-03 13:58 | PC.NURSE ---
Patient's visitor came in and turned off bed alarm and chair alarm. Visitor also told RN that patient told her We are not checking his butt and visitor thinks butt is more red today. RN has assessed patient's bottom both yesterday and today. Patient has been given barrier cream and a waffle mat for under his bottom. She also said we have not cleaned her father. The [facility] has offered a bath multiple times and patient has refused. The [facility] has also applied Cereve ointment from patient's home and by patient's request every time he has gotten up. Patient has gotten out of bed multiple times and ambulates well enough where he can get out of bed to help with reddening. RN educated visitor and patient.
[2025-06-03] MEDS: METOPROLOL SUCCINATE EXT REL 50 MG TABCR PO (21:24)
[2025-06-04] VITALS: PULSE 81
[2025-06-05 14:08] LABS: Albumin 2.2 g/dL (2.9-4.4); Alpha-1-Globulin 0.5 g/dL (0.0-0.4); Alpha-2-Globulin 1.1 g/dL (0.4-1.0); Gamma Globulin 0.7 g/dL (0.4-1.8)
--- NOTE | 2025-06-14 07:20 | PM.TDS ---
Transfer Discharge Sum: Prov Provider Date of admission: 05/30/25 17:56 Primary care physician: Naveed Mcintosh MD Admitting clinician: Manny Mckeon MD Consults: 05/30/25 16:39 Consult to Physician Routine Comment: Consulting Provider: Salas Gottlieb Reason for consultation: Pneumonia Has provider been notified: Yes DS: Admitting Diagnosis Discharge Date 06/03/25 Admitting Diagnosis (1) Combined systolic and diastolic congestive heart failure: Qualifiers: Heart failure chronicity: acute on chronic Qualified Code(s): I50.43 - Acute on chronic combined systolic (congestive) and diastolic (congestive) heart failure Code(s): I50.40 - Unspecified combined systolic (congestive) and diastolic (congestive) heart failure Status: Acute (2) Pneumonia: Qualifiers: Laterality: right Lung location: unspecified part of lung Pneumonia type: due to unspecified organism Qualified Code(s): J18.9 - Pneumonia, unspecified organism Code(s): J18.9 - Pneumonia, unspecified organism Status: Acute (3) Dyspnea on exertion: Code(s): R06.09 - Other forms of dyspnea Status: Acute (4) SNEHA (mycobacterium avium-intracellulare): Code(s): A31.0 - Pulmonary mycobacterial infection Status: Acute (5) Chronic hypoxic respiratory failure, on home oxygen therapy: Code(s): J96.11 - Chronic respiratory failure with hypoxia; Z99.81 - Dependence on supplemental oxygen Status: Acute (6) Chronic pulmonary aspergillosis: Code(s): B44.1 - Other pulmonary aspergillosis Status: Acute DS: Discharge Diagnosis Discharge Diagnosis (1) Combined systolic and diastolic congestive heart failure: Qualifiers: Heart failure chronicity: acute on chronic Qualified Code(s): I50.43 - Acute on chronic combined systolic (congestive) and diastolic (congestive) heart failure Code(s): I50.40 - Unspecified combined systolic (congestive) and diastolic (congestive) heart failure Status: Acute (2) Pneumonia: Qualifiers: Pneumonia type: due to unspecified organism Laterality: right Lung location: unspecified part of lung Qualified Code(s): J18.9 - Pneumonia, unspecified organism Code(s): J18.9 - Pneumonia, unspecified organism Status: Acute (3) Dyspnea on exertion: Code(s): R06.09 - Other forms of dyspnea Status: Acute (4) SNEHA (mycobacterium avium-intracellulare): Code(s): A31.0 - Pulmonary mycobacterial infection Status: Acute (5) Chronic hypoxic respiratory failure, on home oxygen therapy: Code(s): J96.11 - Chronic respiratory failure with hypoxia; Z99.81 - Dependence on supplemental oxygen Status: Acute (6) Chronic pulmonary aspergillosis: Code(s): B44.1 - Other pulmonary aspergillosis Status: Acute Transfer Discharge Sum: Med Medications Active and Home Medications: Home Medications acetaminophen 500 mg tablet (Tylenol Extra Strength) 1,000 mg PO Q6H PRN Pain 03/18/23 [History Confirmed 05/30/25] multivitamin 1 tablet PO DAILY 03/18/23 [History Confirmed 05/30/25] cetirizine 10 mg capsule (Zyrtec) 10 mg PO DAILY PRN allergies 06/13/23 [History Confirmed 05/30/25] aspirin 81 mg tablet,delayed release 81 mg PO DAILY #90 tabs 06/15/23 [Rx Confirmed 05/30/25] polyethylene glycol 3350 17 gram oral powder packet (Miralax) 17 g PO QAM PRN Constipation #30 ea 06/15/23 [Rx Confirmed 05/30/25] fenofibrate 160 mg tablet 160 mg PO DAILY #90 tabs 09/16/23 [Rx Confirmed 05/30/25] nebulizer accessories #1 ea 04/12/24 [Rx Confirmed 05/30/25] nebulizer and compressor #1 ea 04/12/24 [Rx Confirmed 05/30/25] esomeprazole magnesium 20 mg capsule,delayed release See Rx Instructions .Route .COMPLEX #90 caps 04/28/24 [Rx Confirmed 05/30/25] linaclotide 290 mcg capsule (Linzess) See Rx Instructions .Route .COMPLEX #90 caps 04/28/24 [Rx Confirmed 05/30/25] albuterol sulfate 90 mcg/actuation aerosol inhaler 2 puff inhalation Q4H PRN Shortness Of Breath Or Wheezing #8.5 grams 10/03/24 [Rx Confirmed 05/30/25] simethicone 125 mg capsule (Gas-X Extra Strength) 125 mg PO PRN 11/21/24 [History Confirmed 05/30/25] baclofen 10 mg tablet 10 mg PO Q12H PRN muscle spasm 12/02/24 [History Confirmed 05/30/25] albuterol sulfate 2.5 mg/3 mL (0.083 %) solution for nebulization 2.5 mg (3 mL) inhalation Q4H PRN shortness of breath or wheezing #90 mL 12/08/24 [Rx Confirmed 05/30/25] nitroglycerin 0.4 mg sublingual tablet 0.4 mg sublingual Q5M PRN chest pain #25 tabs 12/08/24 [Rx Confirmed 05/30/25] bupropion HCl 150 mg tablet,12 hr sustained-release 150 mg PO BID #180 tabs 12/28/24 [Rx Confirmed 05/30/25] metoprolol succinate 50 mg tablet,extended release 24 hr 50 mg PO HS #90 tabs 12/29/24 [Rx Confirmed 05/30/25] tamsulosin 0.4 mg capsule 0.4 mg PO BID #180 caps 03/20/25 [Rx Confirmed 05/30/25] lorazepam 0.5 mg tablet 0.5 mg PO BID PRN anxiety #60 tabs 03/21/25 [Rx Confirmed 05/30/25] tobramycin 0.3 %-dexamethasone 0.1 % eye drops,suspension 1 drp EACH EYE QID #10 mL 04/05/25 [Rx Confirmed 05/30/25] sulindac 200 mg tablet 200 mg PO BID #180 tabs 04/07/25 [Rx Confirmed 05/30/25] atorvastatin 80 mg tablet 80 mg PO DAILY #90 tabs 04/11/25 [Rx Confirmed 05/30/25] guaifenesin 600 mg tablet, extended release 12 hr 1,200 mg (2 x 600 mg) PO BID #120 tabs 04/14/25 [Rx Confirmed 05/30/25] sertraline 50 mg tablet 50 mg PO DAILY #90 tabs 04/20/25 [Rx Confirmed 05/30/25] benzonatate 200 mg capsule See Rx Instructions .Route .COMPLEX #90 caps 04/26/25 [Rx Confirmed 05/30/25] glycopyrrolate 9 mcg-formoterol 4.8 mcg HFA aerosol inhaler (Bevespi Aerosphere) 2 puff inhalation BID #10.7 grams 04/28/25 [Rx Confirmed 05/30/25] acyclovir 400 mg tablet 400 mg PO TID #21 tabs 05/03/25 [Rx Confirmed 05/30/25] hydroxyzine HCl 25 mg tablet 25 mg PO QID PRN anxiety #50 tabs 05/19/25 [Rx Confirmed 05/30/25] trazodone 100 mg tablet 100 mg PO HS Insomnia #90 tabs 05/24/25 [Rx Confirmed 05/30/25] mirtazapine 15 mg tablet 15 mg PO QHS #30 tabs 06/08/25 [Rx] ondansetron HCl 4 mg tablet 4 mg PO Q8H PRN nausea and vomiting #30 tabs 06/12/25 [Rx] furosemide 20 mg tablet 20 mg PO DAILY #30 tabs 06/13/25 [Rx] morphine 30 mg tablet,extended release 30 mg PO QAM #30 tabs 06/13/25 [Rx] Transfer Discharge Sum: Hosp Hospital Course Hospital course: 80-year-old male with a past medical history of Mycobacterium avium complex, Achromobacter (Alcaligenes) xylosoxidans, aspergillosis, pseudomonal pneumonia, COPD on chronic home O2 on 4-5 L, 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 The patient had been hospitalized 04/25/2025 through-04/28/2025 for pneumonia. He had extensive evaluation by pulmonology. His extended respiratory viral panel did come back for human metapneumovirus, AFB cultures are pending was discharged home to complete antibiotic therapy with cefdinir and azithromycin which were completed on the . He had follow-up with Infectious Disease at [facility]. He then returned to the ER on the due to recurrent symptoms and received prescriptions for Bactrim for 7 days but was discharged home. He followed up with his primary care provider on the and had a script called in for Levaquin for 7 days. He finished the Levaquin today and states he feels better as far as cough but has had increased exertional dyspnea. He reports that his sputum production is stable and his usual color. He reports that if even walks 10 ft his oxygen saturations have been dropping down to 79%. He has continued his home oxygen and has not increased his oxygen levels. He takes several minutes to recover when he desats. He denies any chest pain. He denies any increased lower extremity swelling. His abdomen is slightly distended but he states this is baseline. He denies any orthopnea or paroxysmal nocturnal dyspnea. The following med issues have been addressed during hospitalization Acute respiratory failure with hypoxemia Community-acquired pneumonia History of polymicrobial infections in the past. Pulmonology has been consulted. Continue Rocephin 2 g IV daily, 500 mg of azithromycin and Bactrim. Blood cultures have been obtained and are pending. Flu RSV and COVID PCR were negative. continue scheduled nebulizers. Chronic patient is on 4 L oxygen Acute on chronic combined heart failure Patient has dyspnea X-ray shows pulmonary congestion Echocardiogram on echocardiogram October 2024 Left ventricular systolic function is mildly reduced with an ejection fraction by Biplane Method of Discs of 49 %. left ventricular wall motion shows inf hypokinesis. The left ventricular diastolic function is grade I diastolic dysfunction. Received furosemide 40 mg IV push once on furosemide 40 mg IV daily Follow-up input output Patient has negative imbalance 310ml L today Patient's euvolemia, discontinue IV furosemide, continue furosemide 40 mg daily p.o.06/03 Loose stool Hold MiraLax If diarrhea continue, check c diff Patient was transferred to [facility] per residential construction instructor request Patient Condition: Improved Time Spent with Patient Time attestation: Total time spent providing and/or coordinating transfer services: Exam Narrative: GENERAL: Pleasant, in no acute distress. Well-nourished. - EYES: EOMI. Anicteric. - HENT: Moist mucous membranes. - LUNGS: Coarse breath sound bilaterally. - CARDIOVASCULAR: Regular rate and rhythm. No murmur. No JVD. - ABDOMEN: Soft, non-tender and non-distended. No palpable masses. - EXTREMITIES: No edema. Peripheral pulses 2+. Non-tender. - NEUROLOGIC: No focal neurological deficits. CN II-XII grossly intact. - PSYCHIATRIC: Awake, Alert and oriented x 3. Appropriate mood and affect. - SKIN: No rashes or lesions. Warm. - LYMPH: No cervical lymphadenopathy.
== END 2025-06-03 00:25 | disposition short-term general hospital (02) | DRG 193 ==
LOC: ANHED 16:06 → ANH3MED 17:26
PROVIDERS: Emergency Medicine; Hospitalist; Internal Medicine Pulmonary Disease; Admitting Provider Internal Medicine; Emergency Provider Emergency Medicine; PCP Family Medicine Adolescent Medicine; Visit Provider Internal Medicine
DX: J18.9 Pneumonia, unspecified organism (principal); I50.43 Acute on chronic combined systolic (congestive) and diastolic (congestive) heart failure; J96.21 Acute and chronic respiratory failure with hypoxia; B44.1 Other pulmonary aspergillosis; I13.0 Hypertensive heart and chronic kidney disease with heart failure and stage 1 through stage 4 chronic kidney disease, or unspecified chronic kidney disease; J44.0 Chronic obstructive pulmonary disease with (acute) lower respiratory infection; A31.0 Pulmonary mycobacterial infection; Z20.822 Contact with and (suspected) exposure to COVID-19; N18.30 Chronic kidney disease, stage 3 unspecified; M48.061 Spinal stenosis, lumbar region without neurogenic claudication; K21.9 Gastro-esophageal reflux disease without esophagitis; N40.0 Benign prostatic hyperplasia without lower urinary tract symptoms; I25.5 Ischemic cardiomyopathy; M19.90 Unspecified osteoarthritis, unspecified site; E78.5 Hyperlipidemia, unspecified; I35.0 Nonrheumatic aortic (valve) stenosis; G25.81 Restless legs syndrome; I71.40 Abdominal aortic aneurysm, without rupture, unspecified; Z99.81 Dependence on supplemental oxygen; I25.2 Old myocardial infarction; Z85.830 Personal history of malignant neoplasm of bone; Z87.891 Personal history of nicotine dependence; Z95.5 Presence of coronary angioplasty implant and graft
CPT/HCPCS: 36415; 36430; 71045; 71250; 80048; 80053; 82784; 82787; 83880; 84145; 84165; 85025; 86703; 86738; 86850; 86900; 86901; 86923; 87040; 87254; 87449; 87637; 87641; 87899; 93005; 94640; 94667; 94668; 94669; 94762; 96365; 96366; 96367; 96368; 97110; 97162; 97166; 97530; 99285; A9270; G0378; G0432; J0456; J0696; J1650; J1938; J2185; J7050; J7060; P9016

== ENCOUNTER 2025-06-15 12:58 | Inpatient (IN) | payer MEDICARE, MEDICAID, SELFPAY ==
[2025-06-15] VITALS (38 sets, daily range): BP systolic 98–127; BP diastolic 47–75; PULSE 74–105; RESP 12–26; TEMP 36.2–37.1; O2SAT 93–99; BMI 22.4
--- NOTE | ~2025-06-15 | XR_ITS ---
EXAM/PROCEDURE: XR chest 2V - 06/15/2025 13:20 CDT HISTORY: 80 years old Male with STENT IN 2019, HX OF COPD, SOB TECHNIQUE: Two view(s) of the chest. COMPARISON: 05/30/2025 FINDINGS: Worsening bibasilar airspace opacities, right greater than left. Small right pleural effusion. Cardio mediastinal silhouette is within normal limits. Multi joint degenerative changes. Pulmonary vascular congestion. IMPRESSION: Worsening bibasilar airspace disease, right greater than left. This may be the result of pulmonary ed amie versus pneumonia in appropriate clinical settings. Clinical correlation is recommended. Short-ter m follow-up chest radiograph is recommended after appropriate clinical therapy to document resolution . Reviewed, dictated and finalized at location A. IMPRESSION: Worsening bibasilar airspace disease, right greater than left. This may be the result of pulmonary edema versus pneumonia in appropriate clinical settings. Cl inical correlation is recommended. Short-term follow-up chest radiograph is rec ommended after appropriate clinical therapy to document resolution.
--- NOTE | ~2025-06-15 | XR_ITS ---
CHEST RADIOGRAPH, PA AND LATERAL CLINICAL HISTORY: Increasing Leukocytosis . COMPARISON: 06/15/2025 TECHNIQUE: PA and lateral views of the chest. FINDINGS The cardiomediastinal silhouette is unremarkable. Redemonstration of volume loss within the right hemithorax with a small right-sided pleural effusion and adjacent compressive atelectasis. The left hemithorax remains clear. IMPRESSION: Redemonstration of volume loss within the right hemithorax with adjacent compressive atelectasis and a small right-sided pleural effusion. Reviewed, dictated and finalized at location A. IMPRESSION: Redemonstration of volume loss within the right hemithorax with adjacent compre ssive atelectasis and a small right-sided pleural effusion.
--- NOTE | 2025-06-15 13:02 | ECG_ITS ---
Test Date: 2025-06-15 13:04:12 Measurements Intervals [place] Rate: 104 P: 26 MO: 164 QRS: -43 QRSD: 112 T: 26 QT: 365 QTc: 481 Interpretive Statements SINUS TACHYCARDIA LEFT ATRIAL ENLARGEMENT [-0.15mV P-WAVE IN V1/V2] LEFT AXIS DEVIATION [QRS AXIS < -30] PATTERN CONSISTENT WITH PULMONARY DISEASE INCOMPLETE RIGHT BUNDLE BRANCH BLOCK [90+ ms QRS DURATION, TERMINAL R IN V1/V2, 40+ ms S IN I/aVL/V4/V5/V6] Compared to ECG 05/30/2025 11:23:49 NO SIGNIFICANT CHANGES Electronically Signed On 06-16-2025 15:57:56 CDT by Bert Earl M.D.
[2025-06-15 13:11] LABS: Hematocrit 30.7 % (42.0-52.0); Hemoglobin 9.5 g/dL (14.0-18.0); Immature Granulocyte Percent A 0.9 % (0-0.5); Lymphocytes Absolute Auto 1.04 K/mm3 (0.9-3.2); Mean Corpuscular HGB Conc 30.9 g/dl (32-36); Mean Corpuscular Hemoglobin 28.7 pg (26-34); Mean Corpuscular Volume 92.7 fl (80-100); Nucleated Red Blood Cells Absolute Auto 0.000 K/mm3 (0.0-0.012); Nucleated Red Blood Cells Perc 0.0 % (0.0-0.2); Platelet Count Result 196 k/mm3 (150-375); Red Blood Count 3.31 M/mm3 (4.6-6.20); White Blood Count 7.6 K/mm3 (4.5-10.0)
--- NOTE | 2025-06-15 13:14 | ED_ITS ---
HPI - SOB/Dyspnea General Chief Complaint: Shortness of Breath/Dyspnea Stated Complaint: sob Time Seen by Provider: 06/15/25 13:03 Source: patient and EMS Mode of arrival: EMS Limitations: no limitations History of Present Illness HPI Narrative: 80-year-old male presenting for shortness of breath. He has a history of recently diagnosed mac is being treated with rifabutin, ethambutol, levofloxacin, azithromycin for that and pneumonia. Was discharged from [facility] recently. He has been worsening short of breath for the last 3 days. [place] better after getting a breathing treatment by EMS. Related Data Home Medications ?Medication ?Instructions ?Recorded ?Confirmed ?Last Taken ?Type acetaminophen 500 mg tablet 1,000 mg PO Q6H PRN Pain 03/18/23 05/30/25 05/30/25 History (Tylenol Extra Strength) multivitamin 1 tablet PO DAILY 03/18/23 05/30/25 05/30/25 History cetirizine 10 mg capsule (Zyrtec) 10 mg PO DAILY PRN allergies 06/13/23 05/30/25 05/30/25 History simethicone 125 mg capsule (Gas-X 125 mg PO PRN 11/21/24 05/30/25 Unknown History Extra Strength) baclofen 10 mg tablet 10 mg PO Q12H PRN muscle spasm 12/02/24 05/30/25 05/30/25 History Allergies Allergy/AdvReac Type Severity Reaction Status Date / Time clonazepam AdvReac Severe Drowsy Verified 05/30/25 19:29 roflumilast (From Daliresp) AdvReac Severe Diarrhea Verified 05/30/25 19:29 Review of Systems 2 Review of Systems: All systems reviewed & are unremarkable except as noted in HPI and below (HPI) [facility] Past Medical History Medical History Heart failure with mildly reduced ejection fraction Chronic pulmonary aspergillosis Major depressive disorder, recurrent, mild Left foot drop Chronic kidney disease, stage 3 Spinal stenosis, lumbar region without neurogenic claudication Ischemic cardiomyopathy Echocardiogram 09/2021: Mildly reduced left ventricular systolic function EF of 45-50%, grade 1 diastolic dysfunction, inferior wall inferior septal wall basal inferior wall and mid inferior lateral wall hypokinesis with mild left atrial and large SVT (supraventricular tachycardia) 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 History of tobacco use Polio (1951) Other chronic pain Aortic stenosis Mild - Echo 05/15/2022 NSTEMI (non-ST elevated myocardial infarction) (08/2019) Atherosclerotic heart disease of [place] coronary artery without angina pectoris Abdominal aortic aneurysm, without rupture Seen on CT scan on 02/09/2018 Restless legs syndrome Surgical History Surgical History History of tonsillectomy and adenoidectomy History of repair of rotator cuff bilateral History of colonoscopy with polypectomy History of bowel resection due to obstruction Presence of coronary angioplasty implant and graft History of coronary artery stent placement X2 History of mandibular surgery (1986) reconstructive surgery right mandible related to cancer Family History Family History Mother Diabetes mellitus Acute myocardial infarction Father Colon cancer COPD (chronic obstructive pulmonary disease) Sibling Colon cancer Acute myocardial infarction Lung cancer COPD (chronic obstructive pulmonary disease) Sibling COPD (chronic obstructive pulmonary disease) Sibling Congestive heart failure Sibling Dementia Social History Social History Social History: Surrogate medical decision maker: Yessi Morgan, daughter. Code status: Full code. But he states he would not want to be on a ventilator long-term have a tracheostomy or feeding tube. Smoking packs per day: 1.5 Smoking cigarettes per day: 30.0 Years smoked: 50 Smoking pack-years: 75.00 Smoking status: Former smoker Tobacco type: cigarettes Second hand tobacco smoke exposure: No Alcohol intake: never Substance use: never Substance use type: does not use Other substance usage details: quit alcohol in 2010 Last use: Last alcohol use 2010 Do You Feel Safe in your Home?: Yes Lack of Transportation: No Lack of Food: Never True Current Housing: I Have Housing Concerned About Future Housing: No Difficulty Paying Gas/Electric Bills: No Difficulty Paying for Meds: No Currently Unemployed: No Education: High School Diploma/GED Difficulty w/ Childcare or Family Care: No Living arrangements: with family Additional living arrangements comments: . Lives in [place] with son and [id number]. 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 Eyes: Pupils equal, round, and reactive to light. Neck: Supple, no tracheal deviation, no JVD. ENMT: Mucous membranes moist Cardiovascular: S1, S2 auscultated. No murmurs, rubs, or gallops. No S3/S4. Normal Distal pulses. No peripheral edema. Respiratory: Lung sounds diminished on the left side. Mild wheezing rhonchi mostly in the left lower regions. Gastrointestinal: Abdomen was soft and non-tender. Non-distended. No rebound or guarding. Genitourinary: Deferred Musculoskeletal: Normal muscle tone and bulk. No obvious deformities or tenderness over extremities. Skin: No rashes. Neurological: Strength 5/5 in extremities. Cranial nerves I-XII grossly intact. Distal sensation intact. Mental Status: Awake, alert and oriented x3. Follows commands Course Vital Signs Vital signs: Vital Signs Pulse Oximetry 95 06/15/25 13:00 Oxygen Delivery Nasal Cannula 06/15/25 13:00 Oxygen Flow Rate 4 06/15/25 13:00 Temperature 37.1 C 06/15/25 13:03 Pulse Rate 99 06/15/25 14:45 Respiratory Rate 20 06/15/25 14:45 Blood Pressure 101/57 L 06/15/25 14:45 Pulse Oximetry 96 06/15/25 14:45 Oxygen Delivery Nasal Cannula 06/15/25 13:30 Oxygen Flow Rate 4 06/15/25 13:30 MDM - SOB/Dyspnea MDM Narrative Medical decision making narrative: Patient immediately brought back to room and continued on oxygen. He is saturating mid 90s on 4 L of oxygen. Does not appear in any obvious distress. My concern is for worsening with pneumonia, COPD. Will treat for his COPD, obtain infectious workup. Workup shows worsening pneumonia with also elevated BNP and CXR showing pulmonary edema. Treating for both the pneumonia and pulmonary edema with abx and lasix. Contacted [facility] for transfer to [place]. Spoke with hospitalist from [facility] Dr. Arielle Lewis who accepts transfer but reports will be multiple days for transfer and recommends admission here before then. Spoke with hospitalist who since admission levaquin, rifabutin, azithromycin, ethambutol for MAC are his home meds. Lab Data 06/15/25 13:07 06/15/25 13:07 Labs: Lab Results 06/15/25 06/15/25 06/15/25 Range/Units 13:07 13:07 13:38 WBC 7.6 (4.5-10.0) K/mm3 RBC 3.31 L (4.6-6.20) M/mm3 Hgb 9.5 L (14.0-18.0) g/dL Hct 30.7 L (42.0-52.0) % MCV 92.7 (80-100) fl MCH 28.7 (26-34) pg MCHC 30.9 L (32-36) g/dl RDW 15.2 H (11.5-14.5) % Plt Count 196 (150-375) k/mm3 MPV 9.9 (7.4-10.4) fl Immature Gran % (Auto) 0.9 H (0-0.5) % Neut % (Auto) 78.5 H (45.5-73.1) % Lymph % (Auto) 13.7 L (18.3-44.2) % Camp % (Auto) 6.3 (2.6-8.5) % Eos % (Auto) 0.5 (0-4.4) % Baso % (Auto) 0.1 L (0.2-1.2) % Lymph # (Auto) 1.04 (0.9-3.2) K/mm3 Camp # (Auto) 0.5 (0.1-0.6) K/mm3 Eos # (Auto) 0.0 (0-0.3) K/mm3 Baso # (Auto) 0.0 (0.0-0.1) K/mm3 Abs Immat Gran (auto) 0.07 H (0.00-0.031) K/mm3 Absolute Neuts (auto) 5.9 (1.3-6.7) K/mm3 Absolute Nucleated RBC 0.000 (0.0-0.012) K/mm3 Nucleated RBC % 0.0 (0.0-0.2) % Sodium 135 L (137-145) mmol/L Potassium 4.3 (3.4-5.0) mmol/L Chloride 100 (98-107) mmol/L Carbon Dioxide 26 (22-30) mmol/L Anion Gap 9 (4-12) mmol/L BUN 18 (9-20) mg/dL Creatinine 1.03 (0.7-1.3) mg/dL Estim Creat Clear Calc 53 ml/min Estimated GFR > 60 (59 - ) Glucose 171 H (65-110) mg/dL Lactic Acid 1.6 (0.7-2.0) mmol/L Calcium 9.1 (8.4-10.2) mg/dL Total Bilirubin 0.4 (0.2-1.3) mg/dL AST 35 (17-59) U/L ALT 19 (6-50) U/L Alkaline Phosphatase 137 H (38-126) U/L Troponin I 0.015 Cancelled (0.000-0.034) ng/mL NT-Pro-B Natriuret Pep 1810 H (19.9-100) pg/mL Total Protein 7.1 (6.3-8.2) g/dL Albumin 3.4 L (3.5-5.1) g/dL ABG Data ABG results: 06/15/25 13:33 Puncture Site Right brachial ABG pH 7.491 H ABG pCO2 34.8 L ABG pO2 76.8 L ABG PO2/FiO2 Ratio 2.13 ABG HCO3 26.0 ABG O2 Saturation 96.3 ABG O2 Content 13.3 L ABG Base Excess 2.7 A-a Gradient 139.5 Oxyhemoglobin 95.2 Total Hemoglobin 9.9 L O2 Delivery Device Nasal cannula O2 Liters/Min 4.0 FiO2 36 Critical Care Time Critical Care Time Critical Care Time: Yes Total Critical Care Time: 35 Discharge Plan Discharge Clinical Impression: Mycobacterium avium complex colonization, COPD exacerbation Combined systolic and diastolic congestive heart failure Qualifiers: Heart failure chronicity: acute on chronic Qualified Code(s): I50.43 - Acute on chronic combined systolic (congestive) and diastolic (congestive) heart failure Bilateral pneumonia Qualifiers: Pneumonia type: due to unspecified organism Patient Disposition: Still a Patient Condition: Serious Patient Language: Macedonian Prescriptions: No Action acetaminophen [Tylenol Extra Strength] 500 mg tablet 1,000 mg PO Q6H PRN (Reason: Pain) multivitamin Tablet 1 tablet PO DAILY (DME) nebulizer and compressor Device See Rx Instructions .Route Qty: 1 0RF Rx Instructions: As directed (DME) nebulizer accessories Kit See Rx Instructions .Route Qty: 1 0RF Rx Instructions: As directed baclofen 10 mg tablet 10 mg PO Q12H PRN (Reason: muscle spasm) Bevespi Aerosphere 9-4.8 mcg HFA aerosol inhaler 2 puff inhalation BID Qty: 10.7 0RF Zyrtec 10 mg Capsule 10 mg PO DAILY PRN (Reason: allergies) polyethylene glycol 3350 [Miralax] 17 gram Powder In Packet 17 g PO QAM PRN (Reason: Constipation) Qty: 30 0RF aspirin 81 mg Tablet,Delayed Release (Dr/Ec) 81 mg PO DAILY Qty: 90 0RF simethicone [Gas-X Extra Strength] 125 mg Capsule 125 mg PO PRN fenofibrate 160 mg tablet 160 mg PO DAILY Qty: 90 2RF Linzess 290 mcg capsule See Rx Instructions .ROUTE .COMPLEX Qty: 90 3RF Dose Instruction: TAKE 1 CAPSULE BY MOUTH DAILY Rx Instructions: TAKE 1 CAPSULE BY MOUTH DAILY esomeprazole magnesium 20 mg capsule,delayed release(DR/EC) See Rx Instructions .ROUTE .COMPLEX Qty: 90 3RF Dose Instruction: TAKE 1 CAPSULE BY MOUTH DAILY Rx Instructions: TAKE 1 CAPSULE BY MOUTH DAILY albuterol sulfate 90 mcg/actuation HFA aerosol inhaler 2 puff INHALATION Q4H PRN (Reason: Shortness Of Breath Or Wheezing) Qty: 8.5 5RF nitroglycerin 0.4 mg tablet, sublingual 0.4 mg sublingual Q5M PRN (Reason: chest pain) Qty: 25 3RF Rx Instructions: do not exceed 3 doses per episode albuterol sulfate 2.5 mg /3 mL (0.083 %) solution for nebulization 2.5 mg inhalation Q4H PRN (Reason: shortness of breath or wheezing) Qty: 90 3RF bupropion HCl 150 mg tablet sustained-release 12 hr 150 mg PO BID Qty: 180 2RF metoprolol succinate 50 mg tablet extended release 24 hr 50 mg PO HS Qty: 90 1RF tamsulosin 0.4 mg capsule 0.4 mg PO BID Qty: 180 3RF lorazepam 0.5 mg tablet 0.5 mg PO BID PRN (Reason: anxiety) Qty: 60 3RF tobramycin-dexamethasone 0.3-0.1 % drops,suspension 1 drp EACH EYE QID Qty: 10 0RF sulindac 200 mg tablet 200 mg PO BID Qty: 180 1RF atorvastatin 80 mg tablet 80 mg PO DAILY Qty: 90 1RF guaifenesin 600 mg tablet extended release 12hr 1,200 mg PO BID Qty: 120 3RF sertraline 50 mg tablet 50 mg PO DAILY Qty: 90 3RF benzonatate 200 mg capsule See Rx Instructions .ROUTE .COMPLEX Qty: 90 0RF Dose Instruction: TAKE 1 CAPSULE BY MOUTH THREE TIMES DAILY NEEDED FOR COUGH Rx Instructions: TAKE 1 CAPSULE BY MOUTH THREE TIMES DAILY NEEDED FOR COUGH acyclovir 400 mg tablet 400 mg PO TID Qty: 21 0RF hydroxyzine HCl 25 mg tablet 25 mg PO QID PRN (Reason: anxiety) Qty: 50 2RF trazodone 100 mg tablet 100 mg PO HS Qty: 90 1RF mirtazapine 15 mg tablet 15 mg PO QHS Qty: 30 3RF ondansetron HCl 4 mg tablet 4 mg PO Q8H PRN (Reason: nausea and vomiting) Qty: 30 2RF furosemide 20 mg tablet 20 mg PO DAILY Qty: 30 1RF morphine 30 mg tablet extended release 30 mg PO QAM Qty: 30 0RF Follow-up/Referrals: Rogelio Moeller DO [Primary Care Provider] -
[2025-06-15 13:36] LABS: Alanine Aminotransferase 19 U/L (6-50); Albumin Level 3.4 g/dL (3.5-5.1); Alkaline Phosphatase 137 U/L (38-126); Anion Gap 9 mmol/L (4-12); Aspartate Amino Transferase 35 U/L (17-59); Bilirubin,Total 0.4 mg/dL (0.2-1.3); Blood Urea Nitrogen 18 mg/dL (9-20); Calcium 9.1 mg/dL (8.4-10.2); Carbon Dioxide 26 mmol/L (22-30); Chloride 100 mmol/L (98-107); Estimated CRCL calculation 53 ml/min; Estimated Glomerular Filt Rate > 60; Glucose 171 mg/dL (65-110); Potassium 4.3 mmol/L (3.4-5.0); Sodium 135 mmol/L (137-145); Total Protein 7.1 g/dL (6.3-8.2)
[2025-06-15 13:40] LABS: Alveolar/Arterial O2 Gradient 139.5 mmHg; Fractional Inspired Oxygen 36 %; HCO3 ABG 26.0 mEq/l (22.0-26.0); Oxygen Content ABG 13.3 %vol (16.0-22.0); Oxygen Saturation ABG 96.3 % (95.0-100.0); PCO2 ABG 34.8 mmHg (35.0-45.0); PO2 ABG 76.8 mmHg (80.0-100.0); PO2 FiO2 Ratio Arterial Blood 2.13 %
[2025-06-15 13:41] LABS: Liters per Minute 4.0 LPM; Site Drawn RIGHT BRACHIAL
[2025-06-15 13:47] LABS: Troponin I 0.015 ng/mL (0.000-0.034)
--- OUTSIDE RECORDS SUMMARY | 2025-06-15 13:54 | XMS_ITS | Encounter Summary ---
Author Organization [facility] Address [address] [place] [address] Phone Care Team Providers Care Mechanical Ordnance Assembler Name Role Phone Naveed Mcintosh MD Primary Care Prov ider Salas Gottlieb MD Unavailable [phone] Yarelis Rachel DIE FITTER Unavailable [phone] Encounter Details Date Type Department Care Team (Late st Contact Info) Description 06/02/2025 Telephone [facility] Infectious Diseases [address] [place] [address] [place] [id number] Enma Tate RMA Social History Tobacco Use Types Packs/Day Years Used Date Smoking Tobacco: Former Cigarettes 1.5 65 0 03/12/1957 - 09/19/2018 Smokeless Tobacco: Never Comments:Quit 08/2019 Alcohol Use Standard Drinks/Week Comments Not Currently 0 (1 standard drink = 0.6 oz pur e alcohol) Personal Safety Answer Date Recorded Have you ever been in or are you currently in a harmful physical or emotional relationship or is someone making you feel afraid or unsafe? 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 Gottlieb in the patients care team in [facility], now our notes should go to him and others can select him as well. * Telephone Encounter - Gladys Larson NP - 06/02/2025 4:29 PM CDT There is a way to send them a copy of the note when it is signed, let me see how I can add them in the system * Telephone Encounter - Gladys Larson NP - 06/02/2025 3:27 PM CDT There are notes in [facility], I had planned to start therapy after we saw him, but I had a CMP and CBC done that day and his Cr was 1.94 and I wanted repeat labs prior to starting therapy to make sure hiskidney function normailized, it took us awhile for him to see his PCP for repeat labs, looks like his rpt Cr was okay so I can send in prescriptions to his pharmacy. * Telephone Encounter - Enma Tate RMA - 06/02/2025 9:[address] Sánchez [facility] called re Dr. shireen Blanco And SNEHA. Please call [phone] documented in this encounter Plan of Treatment Not on file documented as of this encounter Visit Diagnoses Not on filedocumented in this encounter Additional Health Concerns Infection Onset Date Last Indicated Resolved Time Tuberculosis (rule out) 06/04/2025 06/04/2025 documented as of this encounter Care Teams Mechanical Ordnance Assembler Relationship Specialty Start Date End Date Naveed Mcintosh MD [address] [place] [address] PCP - General Family Medicine 10/07/19 Salas Gottlieb MD [address] [place] [address] Referring Physician Critical Care Med 06/02/25 Yarelis Rachel, DIE FITTER [address] [facility] ([facility]) Mailstop [phone] [place] [address] [facility] Outpatient Office Electrician 06/08/25 documented as of this encounter
--- OUTSIDE RECORDS SUMMARY | 2025-06-15 13:54 | XMS_ITS | Clinical Summary ---
Author Organization [employer] [id number] [facility] Address [address] [place] [address] Care Team Providers Care Ms Access Database Developer Name Role Phone Naveed Mcintosh MD Primary Care Provider [phone] Allergies No known active allergies Medications meloxicam [...] Take 1 Tablet by mouth daily. Active [id number] -Fish Oil (FISH OIL) 1,000 mg (120 [...] series) 2019 INFLUENZA VACCINE (#1) 2025 Insurance [facility] [id number] Care Teams Ms Access Database Developer Relationship Specialty Start Date End Date Naveed Mcintosh MD PCP - General Family Practice 05/18/19
--- OUTSIDE RECORDS SUMMARY | 2025-06-15 13:54 | XMS_ITS | Clinical Summary ---
Author Organization [facility] [address] Address [address] [place] [address] Care Team Providers Care [employer] Distribution [employer] Operator Name Role Phone Naveed Mcintosh MD Primary Care Prov ider Salas Gottlieb MD Unavailable [phone] Yarelis Rachel [facility] Unavailable [phone] Allergies Active Allergy Reactions Criticality Noted Date [...] 80 mg tabletIndicatio ns:Coronary artery disease involving miami coronary artery of miami heart without angina pectoris TAKE 1 TABLET [...] 25 mg tabletIndicatio ns:Coronary artery disease involving miami coronary artery of miami heart without angina pectoris Take 1 tablet (25 mg total) by mouth daily 90 tablet 3 4 Active metoprolol XL (TOPROL-XL) 50 mg extended release tablet Take 1 tablet (50 mg total) by mouth nightly at bedtime. 5 Active LORazepam (ATIVAN) 0.5 mg tablet Take by mouth 2 (two) times a day as needed 5 Active tobramycin-dexA METHasone (TOBRADEX) ophthalmic solution Administer 1 drop into both eyes 4 (four) times a day Active acyclovir (ZOVIRAX) 400 mg tablet Take 1 tablet (400 mg total) by mouth 3 (three) times a day Active azithromycin (ZITHROMAX) 500 mg tabletIndicatio ns:Pneumonia, Community Acquired Take 1 tablet (500 mg total) by mouth daily 21 tablet 5 Active rifabutin (MYCOBUTIN) 150 mg capsuleIndicati ons:Mycobacteri osis Take 2 capsules (300 mg total) by mouth daily for 21 days 42 capsule 5 06/28/20 25 Active levoFLOXacin (LEVAQUIN) 750 mg tabletIndicatio ns:Pneumonia, Community Acquired Take 1 tablet (750 mg total) by 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 He was diagnosed with COPD > 5 years ago and initially started on maintenance inhalers with estimated 1-2 exacerbations per year until 2023. He currently takes glycopyrrolate-formoterol for maintenance and does not regularly use rescue inhalers. He has a reported 60-80 pack year smoking history and quit smoking in 2018 after ACS requiring PCI. In 2020 he had a pneumonia that was culture positive for Pseudomonas. Previous PFTs in 11/2023 showed mild obstruction FEV1 68% ratio 61%. He follows with Dr. 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 His previous pulmonary workup included alpha 1 antitrypsin M/M genotype, IgG subclasses with normal total IgG levels with a variable IgG 2 subclass deficiency. Having had multiple hospitalizations for pneumonia in last few years (11 episodes in 2023), sputum AFB sent in 11/2024 which did show M avium: - 12/15/24: mycobacterium avium: amikacin S, clarithromycin S, linezolid I, moxifloxacin R - 12/16/24: mycobacterium avium Plan: - rifabutin 300 mg daily, azithromycin 500 mg daily, ethambutol 1200 mg daily - Meropenem transitioned to Levaquin 750 mg daily x 14 day course (EOT 06/18) Assessment & Plan (06/06/2025 4:32 PM CDT): Patient has a complicated history of recurrent pulmonary infections since more than a year ago. He was diagnosed with COPD > 5 years ago and initially started on maintenance inhalers with estimated 1-2 exacerbations per year until 2023. He currently takes glycopyrrolate-formoterol for maintenance and does not regularly use rescue inhalers. He has a reported 60-80 pack year smoking history and quit smoking in 2019 after ACS requiring PCI. In 2020 he had a pneumonia that was culture positive for Pseudomonas. Previous PFTs in 11/2023 showed mild obstruction FEV1 68% ratio 61%. He follows with Dr. 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 His previous pulmonary workup included alpha 1 antitrypsin M/M genotype, IgG subclasses with normal total IgG levels with a variable IgG 2 subclass deficiency. Having had multiple hospitalizations for pneumonia in last few years (11 episodes in 2023), sputum AFB sent in 11/2024 which did show M avium: - 12/15/24: mycobacterium avium: amikacin S, clarithromycin S, linezolid I, moxifloxacin R - 12/16/24: mycobacterium avium Plan: - rifabutin 300 mg daily, azithromycin 500 mg daily, ethambutol 1200 mg daily - Meropenem transitioned to Levaquin 750 mg daily x 14 day course (EOT 06/18) Assessment & Plan (06/06/2025 11:22 AM CDT): -DuoNebs BID while here timed with his airway clearance therapy -Okay to go back on home glycopyrrolate-formoterol on discharge Assessment & Plan (06/05/2025 11:35 PM CDT): Patient has a complicated history of recurrent pulmonary infections since more than a year ago. He was diagnosed with COPD > 5 years ago and initially started on maintenance inhalers with estimated 1-2 exacerbations per year until 2023. He currently takes glycopyrrolate-formoterol for maintenance and does not regularly use rescue inhalers. He has a reported 60-80 pack year smoking history and quit smoking in 2019 after ACS requiring PCI. In 2020 he had a pneumonia that was culture positive for Pseudomonas. Previous PFTs in 11/2023 showed mild obstruction FEV1 68% ratio 61%. He follows with Dr. 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 His previous pulmonary workup included alpha 1 antitrypsin M/M genotype, IgG subclasses with normal total IgG levels with a variable IgG 2 subclass deficiency. Having had multiple hospitalizations for pneumonia in last few years (11 episodes in 2023), sputum AFB sent in 11/2024 which did show M avium: - 12/15/24: mycobacterium avium: amikacin S, clarithromycin S, linezolid I, moxifloxacin R - 12/16/24: mycobacterium avium Plan: - rifabutin 300 mg daily, azithromycin 500 mg daily, ethambutol 1200 mg daily - Meropenem 1000g daily Assessment & Plan (06/05/2025 4:00 PM CDT): Elmer López is a 80 y.o. 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 ID was consulted for MAC and patient was started on triple therapy for this 06/04. CT chest did show basilar consolidation suggestive of aspiration +/- pneumonia and PNA PCR + pseudomonas Since arrival to [facility], he has been on 3 L nasal cannula, which is near baseline his respiratory symptoms have improved and he is non-toxic. Recommendations: - For MAC: continue azithromycin 500 mg daily, ethambutol 1200 mg daily, and rifabutin 300 mg daily now and on discharge - I have requested that his July follow up with ID be moved up be ~2 weeks from now to follow up on how new medications are going - AFB sputum culture collected 06/05. If able would be helpful to obtain 2 additional samples by at least 12 hours Results can be followed up outpt w/ respect to any drug resistance - Consider treating bacterial pneumonia w/ 5-7 d meropenem or per pulmonary recommendations - As patient is at his baseline in terms of oxygen requirements and symptoms, do not feel that he needs to continue meropenem for bacterial pneumonia coverage Assessment & Plan (06/05/2025 1:01 PM CDT): No wheezing on exam, ABG showing mildly elevated pCO2 which appears to be chronically compensated. COPD less likely contributing to his acute presentation. -Can schedule DuoNebs BID. while here timed with his airway clearance therapy -Can hold his home glycopyrrolate-formoterol for now Assessment & Plan (06/04/2025 7:54 PM CDT): Patient has a complicated history of recurrent pulmonary infections since more than a year ago. He was diagnosed with COPD > 5 years ago and initially started on maintenance inhalers with estimated 1-2 exacerbations per year until 2023. He currently takes glycopyrrolate-formoterol for maintenance and does not regularly use rescue inhalers. He has a reported 60-80 pack year smoking history and quit smoking in 2019 after ACS requiring PCI. In 2020 he had a pneumonia that was culture positive for Pseudomonas. Per outside record CT at that time showed mild to moderate apical predominant centrilobular and paraseptal emphysema. Previous PFTs in 11/2023 showed mild obstruction FEV1 68% ratio 61%. He follows with Dr. 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 His previous pulmonary workup included alpha 1 antitrypsin M/M genotype, IgG subclasses with normal total IgG levels with a variable IgG 2 subclass deficiency. Assessment & Plan (06/04/2025 5:15 PM CDT): No wheezing on exam, ABG showing mildly elevated pCO2 which appears to be chronically compensated. COPD less likely contributing to his acute presentation. -Can schedule DuoNebs BID. while here timed with his airway clearance therapy -Can hold his home glycopyrrolate-formoterol for now Assessment & Plan (06/04/2025 6:33 PM CDT): Elmer López is a 80 y.o. 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 ID was consulted for concern for possible PNA and MAC. He is presenting with acute on chronic respiratory symptoms. One of the major factor driving of his recurrent presentations is the likely the untreated MAC with ongoing respiratory inflammation and mucous production. Treatment could be started this admission. Would get AFB sputum cultures to evaluate in case of any concern for resistance given his numerous antibiotic courses recently that could promote resistance. Discussed case with Dr. Adams who communicated that outpatient etch operator semiconductor wafers has done immunoglobulin levels, and patient has variable IgG2 subclass deficiency, with normal IgG levels. He has had prior barium swallows that showed aspiration without penetration. Would also recommend getting an SPEP for paraprotein evaluation. Would also get CT imaging to evaluate for progression of lung disease and prior empyema (previously noted on CT 05/02). He may have had a component of COPD exacerbation/pneumonia/brochiectasis exacerbation. Since arrival to [facility], he has been on 3 L nasal cannula, which is near baseline his respiratory symptoms have improved and he is non-toxic. He continues to have sputum production, although seems to be somewhat chronic and fluctuating. He does not appear to have acute pneumonia, but presentation could be more consistent with bronchiectasis exacerbation. It could be helpful to get a PNA PCR if he is not felt to be fully back to baseline to find a target. He has been stable on meropenem, so it is not clear if vancomycin is needed at this time/could wait for evaluation above. Discussed case with Pulmonology. Recommendations: - Please obtain an AFB sputum culture. Will follow up and pursue resistance testing if organism grows. - Please get PNA PCR/culture and MRSA nares. - Please get an SPEP. - Will follow up CT chest done today that has not yet been read. - For MAC: continue azithromycin 500 mg daily and start ethambutol 1200 mg daily, and rifabutin 300 mg daily. Will have pharmacy team verify any new drug interaction. - Appreciate attention to airway clearance. - Continue meropenem 1000 mg Q12H while undergoing the above evaluation and de-escalate if able. No clear indications for vancomycin given stability on meropenem. Would consider stopping and only restarting (or using linezolid, etc) if target is found, with duration likely for bronchiectasis exacerbation. - CBC and CMP should be monitored at least weekly with this treatment. Vancomycin troughs should be monitored closely on this treatment. - Perform routine adult screening for HIV and hepatitis B/C with HIV-1/2 Ab/p24 Ag, HBs Ag, Anti-HBs Ab, Anti-HBc Ab total, Anti-HCV Ab, and RPR for our records. Assessment & Plan (06/04/2025 3:59 AM CDT): Transferred from [facility] for pulm and ID evaluation of recurrent bacterial PNA and MAC infection. 11 episodes of PNA requiring abx therapy in past two years. Hx of COPD on baseline 4L NC reported. MAC infection on recent sputum cultures, [facility] and recommended starting rifabutin 300mg daily, azithromycin 500mg daily, ethambutol 1200mg daily however not started yet. Most recent stay prior to transfer here treated with meropenem and azithromycin prior to transfer due to hx of pseudomonas pna and atypicals. Viral panel and MRSA swab reportedly negative at that time, blood cultures were obtained. Pulm at OSH did not deem this likely COPD exacerbation. CT chest 06/01 report with worsening appearance of the bilateral lung short, right greater than left, with volume loss and additional findings in the dependent portion of the right chest for which a developing rind is suspected, findings consistent with patient's known SNEHA infection, continued aspiration is also suspected with likely residual aspirated products within the right inferior lobe bronchus, worsening mediastinal lymphadenopathy - continue meropenem, azithromycin - duonebs Q6H, hypertonic saline nebs BID - continue supplemental O2, pulse ox monitoring - chest xray, defer further imaging until healthcare management consultant recs to avoid unnecessary repeat radiation exposure - RVP, urine legionella, MRSA PCR, sputum culture - ID and pulmonology consult in AM Systolic and diastolic CHF, acute on chronic Assessment & Plan (06/07/2025 11:27 AM CDT): IV Lasix 40mg daily Assessment & Plan (06/06/2025 4:32 PM CDT): IV Lasix 40mg daily Assessment & Plan (06/05/2025 4:57 PM CDT): IV Lasix 40mg daily Assessment & Plan (06/04/2025 3:59 AM CDT): No TTE in chart but reported EF 45-50%, grade 1 DD 2020. Started on lasix IV 40mg daily to assist with respiratory status. - continue lasix 40mg IV daily - continue home metop XL 50mg - check NT-proBNP Depression 06/04/2025 Assessment & Plan (06/04/2025 3:59 AM CDT): - continue home wellbutrin CKD (chronic kidney disease) 06/04/2025 Assessment & Plan (06/04/2025 3:59 AM CDT): No baseline data in chart, Cr trend at OSH from 05/30-06/03 1.13->1.61->1.47->1.25 - monitor Cr, UOP GERD (gastroesophageal reflux disease) Assessment & Plan (06/07/2025 11:27 AM CDT): Home meds: Omeprazole -Continue home meds Assessment & Plan (06/06/2025 4:32 PM CDT): Home meds: Omeprazole -Continue home meds Assessment & Plan (06/05/2025 4:57 PM CDT): Home meds: Omeprazole -Continue home meds Assessment & Plan (06/04/2025 3:59 AM CDT): - sub home omeprazole for pantoprazole BPH (benign prostatic hyperplasia) 06/04/2025 Assessment & Plan (06/07/2025 11:27 AM CDT): Home meds: Flomax -Continue home meds Assessment & Plan (06/06/2025 4:32 PM CDT): Home meds: Flomax -Continue home meds Assessment & Plan (06/05/2025 4:57 PM CDT): Home meds: Flomax -Continue home meds Assessment & Plan (06/04/2025 3:59 AM CDT): - continue home flomax HTN (hypertension) 06/04/2025 Assessment & Plan (06/04/2025 3:59 AM CDT): Reported hx of coronary stenting. No chest pain - continue asa, statin, tricor Hyperlipidemia, unspecified 06/04/2025 Assessment & Plan (06/04/2025 3:59 AM CDT): Reported hx of coronary stenting. No chest pain - continue asa, statin, tricor Acute on chronic hypoxic respiratory failure Assessment & Plan (06/06/2025 11:22 AM CDT): Multifactorial due to obstructive lung disease, recurrent lobar pneumonia, history of mycobacterium avium infection. -Continue supplemental oxygen for SpO2 above 90% -O2 evaluation closer to discharge Assessment & Plan (06/05/2025 4:00 PM CDT): Elmer López is a 80 y.o. 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 ID was consulted for MAC and patient was started on triple therapy for this 06/04. CT chest did show basilar consolidation suggestive of aspiration +/- pneumonia and PNA PCR + pseudomonas Since arrival to [facility], he has been on 3 L nasal cannula, which is near baseline his respiratory symptoms have improved and he is non-toxic. Recommendations: - For MAC: continue azithromycin 500 mg daily, ethambutol 1200 mg daily, and rifabutin 300 mg daily now and on discharge - I have requested that his July follow up with ID be moved up be ~2 weeks from now to follow up on how new medications are going - AFB sputum culture collected 06/05. If able would be helpful to obtain 2 additional samples by at least 12 hours Results can be followed up outpt w/ respect to any drug resistance - Consider treating bacterial pneumonia w/ 5-7 d meropenem or per pulmonary recommendations - As patient is at his baseline in terms of oxygen requirements and symptoms, do not feel that he needs to continue meropenem for bacterial pneumonia coverage Assessment & Plan (06/05/2025 1:01 PM CDT): Multifactorial due to obstructive lung disease, recurrent lobar pneumonia, history of mycobacterium avium infection. -Continue supplemental oxygen for SpO2 above 90% -O2 evaluation closer to discharge Assessment & Plan (06/04/2025 5:15 PM CDT): Multifactorial due to obstructive lung disease, recurrent lobar pneumonia, history of mycobacterium avium infection. -Continue supplemental oxygen for SpO2 above 90% -O2 evaluation closer to discharge Assessment & Plan (06/04/2025 6:33 PM CDT): Elmer López is a 80 y.o. 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 ID was consulted for concern for possible PNA and MAC. He is presenting with acute on chronic respiratory symptoms. One of the major factor driving of his recurrent presentations is the likely the untreated MAC with ongoing respiratory inflammation and mucous production. Treatment could be started this admission. Would get AFB sputum cultures to evaluate in case of any concern for resistance given his numerous antibiotic courses recently that could promote resistance. Discussed case with Dr. Adams who communicated that outpatient etch operator semiconductor wafers has done immunoglobulin levels, and patient has variable IgG2 subclass deficiency, with normal IgG levels. He has had prior barium swallows that showed aspiration without penetration. Would also recommend getting an SPEP for paraprotein evaluation. Would also get CT imaging to evaluate for progression of lung disease and prior empyema (previously noted on CT 05/02). He may have had a component of COPD exacerbation/pneumonia/brochiectasis exacerbation. Since arrival to [facility], he has been on 3 L nasal cannula, which is near baseline his respiratory symptoms have improved and he is non-toxic. He continues to have sputum production, although seems to be somewhat chronic and fluctuating. He does not appear to have acute pneumonia, but presentation could be more consistent with bronchiectasis exacerbation. It could be helpful to get a PNA PCR if he is not felt to be fully back to baseline to find a target. He has been stable on meropenem, so it is not clear if vancomycin is needed at this time/could wait for evaluation above. Discussed case with Pulmonology. Recommendations: - Please obtain an AFB sputum culture. Will follow up and pursue resistance testing if organism grows. - Please get PNA PCR/culture and MRSA nares. - Please get an SPEP. - Will follow up CT chest done today that has not yet been read. - For MAC: continue azithromycin 500 mg daily and start ethambutol 1200 mg daily, and rifabutin 300 mg daily. Will have pharmacy team verify any new drug interaction. - Appreciate attention to airway clearance. - Continue meropenem 1000 mg Q12H while undergoing the above evaluation and de-escalate if able. No clear indications for vancomycin given stability on meropenem. Would consider stopping and only restarting (or using linezolid, etc) if target is found, with duration likely for bronchiectasis exacerbation. - CBC and CMP should be monitored at least weekly with this treatment. Vancomycin troughs should be monitored closely on this treatment. - Perform routine adult screening for HIV and hepatitis B/C with HIV-1/2 Ab/p24 Ag, HBs Ag, Anti-HBs Ab, Anti-HBc Ab total, Anti-HCV Ab, and RPR for our records. Assessment & Plan (06/04/2025 3:59 AM CDT): Transferred from [facility] for pulm and ID evaluation of recurrent bacterial PNA and MAC infection. 11 episodes of PNA requiring abx therapy in past two years. Hx of COPD on baseline 4L NC reported. MAC infection on recent sputum cultures, evaluated by ID here at [facility] and recommended starting rifabutin 300mg daily, azithromycin 500mg daily, ethambutol 1200mg daily however not started yet. Most recent stay prior to transfer here treated with meropenem and azithromycin prior to transfer due to hx of pseudomonas pna and atypicals. Viral panel and MRSA swab reportedly negative at that time, blood cultures were obtained. Pulm at OSH did not deem this likely COPD exacerbation. CT chest 06/01 report with worsening appearance of the bilateral lung short, right greater than left, with volume loss and additional findings in the dependent portion of the right chest for which a developing rind is suspected, findings consistent with patient's known SNEHA infection, continued aspiration is also suspected with likely residual aspirated products within the right inferior lobe bronchus, worsening mediastinal lymphadenopathy - continue meropenem, azithromycin - duonebs Q6H, hypertonic saline nebs BID - continue supplemental O2, pulse ox monitoring - chest xray, defer further imaging until healthcare management consultant recs to avoid unnecessary repeat radiation exposure - RVP, urine legionella, MRSA PCR, sputum culture - ID and pulmonology consult in AM Mycobacterium avium complex 06/04/2025 Assessment & Plan (06/07/2025 11:27 AM CDT): Patient has a complicated history of recurrent pulmonary infections since more than a year ago. He was diagnosed with COPD > 5 years ago and initially started on maintenance inhalers with estimated 1-2 exacerbations per year until 2023. He currently takes glycopyrrolate-formoterol for maintenance and does not regularly use rescue inhalers. He has a reported 60-80 pack year smoking history and quit smoking in 2019 after ACS requiring PCI. In 2020 he had a pneumonia that was culture positive for Pseudomonas. Previous PFTs in 11/2023 showed mild obstruction FEV1 68% ratio 61%. He follows with Dr. 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 His previous pulmonary workup included alpha 1 antitrypsin M/M genotype, IgG subclasses with normal total IgG levels with a variable IgG 2 subclass deficiency. Having had multiple hospitalizations for pneumonia in last few years (11 episodes in 2023), sputum AFB sent in 11/2024 which did show M avium: - 12/15/24: mycobacterium avium: amikacin S, clarithromycin S, linezolid I, moxifloxacin R - 12/16/24: mycobacterium avium Plan: - rifabutin 300 mg daily, azithromycin 500 mg daily, ethambutol 1200 mg daily - Meropenem transitioned to Levaquin 750 mg daily x 14 day course (EOT 06/18) Assessment & Plan (06/06/2025 4:32 PM CDT): Patient has a complicated history of recurrent pulmonary infections since more than a year ago. He was diagnosed with COPD > 5 years ago and initially started on maintenance inhalers with estimated 1-2 exacerbations per year until 2023. He currently takes glycopyrrolate-formoterol for maintenance and does not regularly use rescue inhalers. He has a reported 60-80 pack year smoking history and quit smoking in 2019 after ACS requiring PCI. In 2020 he had a pneumonia that was culture positive for Pseudomonas. Previous PFTs in 11/2023 showed mild obstruction FEV1 68% ratio 61%. He follows with Dr. 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 His previous pulmonary workup included alpha 1 antitrypsin M/M genotype, IgG subclasses with normal total IgG levels with a variable IgG 2 subclass deficiency. Having had multiple hospitalizations for pneumonia in last few years (11 episodes in 2023), sputum AFB sent in 11/2024 which did show M avium: - 12/15/24: mycobacterium avium: amikacin S, clarithromycin S, linezolid I, moxifloxacin R - 12/16/24: mycobacterium avium Plan: - rifabutin 300 mg daily, azithromycin 500 mg daily, ethambutol 1200 mg daily - Meropenem transitioned to Levaquin 750 mg daily x 14 day course (EOT 06/18) Assessment & Plan (06/06/2025 11:22 AM CDT): Agree with ID recommendations. Do not suspect his bronchiectasis is related to this. Assessment & Plan (06/05/2025 11:35 PM CDT): Patient has a complicated history of recurrent pulmonary infections since more than a year ago. He was diagnosed with COPD > 5 years ago and initially started on maintenance inhalers with estimated 1-2 exacerbations per year until 2023. He currently takes glycopyrrolate-formoterol for maintenance and does not regularly use rescue inhalers. He has a reported 60-80 pack year smoking history and quit smoking in 2019 after ACS requiring PCI. In 2020 he had a pneumonia that was culture positive for Pseudomonas. Previous PFTs in 11/2023 showed mild obstruction FEV1 68% ratio 61%. He follows with Dr. 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 His previous pulmonary workup included alpha 1 antitrypsin M/M genotype, IgG subclasses with normal total IgG levels with a variable IgG 2 subclass deficiency. Having had multiple hospitalizations for pneumonia in last few years (11 episodes in 2023), sputum AFB sent in 11/2024 which did show M avium: - 12/15/24: mycobacterium avium: amikacin S, clarithromycin S, linezolid I, moxifloxacin R - 12/16/24: mycobacterium avium Plan: - rifabutin 300 mg daily, azithromycin 500 mg daily, ethambutol 1200 mg daily - Meropenem 1000g daily Assessment & Plan (06/05/2025 4:00 PM CDT): Elmer López is a 80 y.o. 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 ID was consulted for MAC and patient was started on triple therapy for this 06/04. CT chest did show basilar consolidation suggestive of aspiration +/- pneumonia and PNA PCR + pseudomonas Since arrival to [facility], he has been on 3 L nasal cannula, which is near baseline his respiratory symptoms have improved and he is non-toxic. Recommendations: - For MAC: continue azithromycin 500 mg daily, ethambutol 1200 mg daily, and rifabutin 300 mg daily now and on discharge - I have requested that his July follow up with ID be moved up be ~2 weeks from now to follow up on how new medications are going - AFB sputum culture collected 06/05. If able would be helpful to obtain 2 additional samples by at least 12 hours Results can be followed up outpt w/ respect to any drug resistance - Consider treating bacterial pneumonia w/ 5-7 d meropenem or per pulmonary recommendations - As patient is at his baseline in terms of oxygen requirements and symptoms, do not feel that he needs to continue meropenem for bacterial pneumonia coverage Assessment & Plan (06/05/2025 1:01 PM CDT): History of positive mycobacterium avium culture in November 2024 and was following with ID. ID consulted and recommending starting triple therapy at this time. His bronchiectasis certainly could be attributable to MDM infection however there is likely a component of a superimposed bacterial infection that may have been under treated in the past. -We recommend obtaining repeat serial sputum AFB cultures -appreciate ID colleagues Assessment & Plan (06/04/2025 5:15 PM CDT): History of positive mycobacterium avium culture in November 2024 and was following with ID with plans to undergo treatment with 3 drug therapy. His bronchiectasis certainly could be attributable to MDM infection however there is likely a component of a superimposed bacterial infection that may have been under treated in the past. -We recommend obtaining repeat serial sputum AFB cultures -appreciate ID colleagues Assessment & Plan (06/04/2025 6:33 PM CDT): Elmer López is a 80 y.o. 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 ID was consulted for concern for possible PNA and MAC. He is presenting with acute on chronic respiratory symptoms. One of the major factor driving of his recurrent presentations is the likely the untreated MAC with ongoing respiratory inflammation and mucous production. Treatment could be started this admission. Would get AFB sputum cultures to evaluate in case of any concern for resistance given his numerous antibiotic courses recently that could promote resistance. Discussed case with Dr. Adams who communicated that outpatient etch operator [employer] wafers has done immunoglobulin levels, and patient has variable IgG2 subclass deficiency, with normal IgG levels. He has had prior barium swallows that showed aspiration without penetration. Would also recommend getting an SPEP for paraprotein evaluation. Would also get CT imaging to evaluate for progression of lung disease and prior empyema (previously noted on CT 05/02). He may have had a component of COPD exacerbation/pneumonia/brochiectasis exacerbation. Since arrival to [facility], he has been on 3 L nasal cannula, which is near baseline his respiratory symptoms have improved and he is non-toxic. He continues to have sputum production, although seems to be somewhat chronic and fluctuating. He does not appear to have acute pneumonia, but presentation could be more consistent with bronchiectasis exacerbation. It could be helpful to get a PNA PCR if he is not felt to be fully back to baseline to find a target. He has been stable on meropenem, so it is not clear if vancomycin is needed at this time/could wait for evaluation above. Discussed case with Pulmonology. Recommendations: - Please obtain an AFB sputum culture. Will follow up and pursue resistance testing if organism grows. - Please get PNA PCR/culture and MRSA nares. - Please get an SPEP. - Will follow up CT chest done today that has not yet been read. - For MAC: continue azithromycin 500 mg daily and start ethambutol 1200 mg daily, and rifabutin 300 mg daily. Will have pharmacy team verify any new drug interaction. - Appreciate attention to airway clearance. - Continue meropenem 1000 mg Q12H while undergoing the above evaluation and de-escalate if able. No clear indications for vancomycin given stability on meropenem. Would consider stopping and only restarting (or using linezolid, etc) if target is found, with duration likely for bronchiectasis exacerbation. - CBC and CMP should be monitored at least weekly with this treatment. Vancomycin troughs should be monitored closely on this treatment. - Perform routine adult screening for HIV and hepatitis B/C with HIV-1/2 Ab/p24 Ag, HBs Ag, Anti-HBs Ab, Anti-HBc Ab total, Anti-HCV Ab, and RPR for our records. Assessment & Plan (06/04/2025 3:59 AM CDT): Transferred from [facility] for pulm and ID evaluation of recurrent bacterial PNA and MAC infection. 11 episodes of PNA requiring abx therapy in past two years. Hx of COPD on baseline 4L NC reported. MAC infection on recent sputum cultures, evaluated by ID here at [facility] and recommended starting rifabutin 300mg daily, azithromycin 500mg daily, ethambutol 1200mg daily however not started yet. Most recent stay prior to transfer here treated with meropenem and azithromycin prior to transfer due to hx of pseudomonas pna and atypicals. Viral panel and MRSA swab reportedly negative at that time, blood cultures were obtained. Pulm at OSH did not deem this likely COPD exacerbation. CT chest 06/01 report with worsening appearance of the bilateral lung short, right greater than left, with volume loss and additional findings in the dependent portion of the right chest for which a developing rind is suspected, findings consistent with patient's known SNEHA infection, continued aspiration is also suspected with likely residual aspirated products within the right inferior lobe bronchus, worsening mediastinal lymphadenopathy - continue meropenem, azithromycin - duonebs Q6H, hypertonic saline nebs BID - continue supplemental O2, pulse ox monitoring - chest xray, defer further imaging until healthcare management consultant recs to avoid unnecessary repeat radiation exposure - RVP, urine legionella, MRSA PCR, sputum culture - ID and pulmonology consult in AM Chronic pain 06/04/2025 Assessment & Plan (06/04/2025 3:59 AM CDT): - continue home long acting morphine Anxiety 06/04/2025 Assessment & Plan (06/04/2025 3:59 AM CDT): - continue home hydroxyzine, lorazepam prn Anemia 06/04/2025 Assessment & Plan (06/05/2025 1:01 PM CDT): Likely contributing to his dyspnea and fatigue symptoms well. Iron labs consistent with iron deficiency anemia. Assessment & Plan (06/04/2025 5:15 PM CDT): Likely contributing to his dyspnea and fatigue symptoms well. -Recommend checking iron profile, B12, folate Coronary artery disease 10/28/2019 Assessment & Plan (06/07/2025 11:27 AM CDT): Home meds: Losartan 25mg daily, atorvastatin 80 mg daily, aspirin 81mg daily, metoprolol XL 50mg Hx of severe single-vessel CAD with subtotal occlusion of the mid-LAD, s/p PCI with DAYLIN. Follows with Dr. Clemons at the [facility] in [place], [place]. 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 Follows with Dr. Clemons at the [facility] in [place], [place]. 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 Follows with Dr. Clemons at the [facility] in [place], [place]. Assessment & Plan (06/04/2025 3:59 AM CDT): Reported hx of coronary stenting. No chest pain - continue asa, statin, tricor Spinal stenosis 09/26/2015 Pain of right lower extremity 09/26/2015 Notalgia 09/25/2015 Resolved Problems Problem Noted Date Diagnosed Date Resolved Date Shortness of breath 06/04/2025 06/05/20 25 Assessment & Plan (06/05/2025 11:35 PM CDT): Patient has a complicated history of recurrent pulmonary infections since more than a year ago. He was diagnosed with COPD > 5 years ago and initially started on maintenance inhalers with estimated 1-2 exacerbations per year until 2023. He currently takes glycopyrrolate-formoterol for maintenance and does not regularly use rescue inhalers. He has a reported 60-80 pack year smoking history and quit smoking in 2018 after ACS requiring PCI. In 2020 he had a pneumonia that was culture positive for Pseudomonas. Previous PFTs in 11/2023 showed mild obstruction FEV1 68% ratio 61%. He follows with Dr. 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 His previous pulmonary workup included alpha 1 antitrypsin M/M genotype, IgG subclasses with normal total IgG levels with a variable IgG 2 subclass deficiency. Having had multiple hospitalizations for pneumonia in last few years (11 episodes in 2023), sputum AFB sent in 11/2024 which did show M avium: - 12/15/24: mycobacterium avium: amikacin S, clarithromycin S, linezolid I, moxifloxacin R - 12/16/24: mycobacterium avium Plan: - rifabutin 300 mg daily, azithromycin 500 mg daily, ethambutol 1200 mg daily - Meropenem 1000g daily Assessment & Plan (06/04/2025 3:59 AM CDT): Transferred from [facility] for pulm and ID evaluation of recurrent bacterial PNA and MAC infection. 11 episodes of PNA requiring abx therapy in past two years. Hx of COPD on baseline 4L NC reported. MAC infection on recent sputum cultures, evaluated by ID here at [facility] and recommended starting rifabutin 300mg daily, azithromycin 500mg daily, ethambutol 1200mg daily however not started yet. Most recent stay prior to transfer here treated with meropenem and azithromycin prior to transfer due to hx of pseudomonas pna and atypicals. Viral panel and MRSA swab reportedly negative at that time, blood cultures were obtained. Pulm at OSH did not deem this likely COPD exacerbation. CT chest 06/01 report with worsening appearance of the bilateral lung short, right greater than left, with volume loss and additional findings in the dependent portion of the right chest for which a developing rind is suspected, findings consistent with patient's known SNEHA infection, continued aspiration is also suspected with likely residual aspirated products within the right inferior lobe bronchus, worsening mediastinal lymphadenopathy - continue meropenem, azithromycin - duonebs Q6H, hypertonic saline nebs BID - continue supplemental O2, pulse ox monitoring - chest xray, defer further imaging until healthcare management consultant recs to avoid unnecessary repeat radiation exposure - RVP, urine legionella, MRSA PCR, sputum culture - ID and pulmonology consult in AM mac 06/04/2025 06/05/2025 Bronchiectasis 06/04/2025 06/05/2025 Assessment & Plan (06/06/2025 11:22 AM CDT): Elmer López is a 80 y.o. 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 We were consulted for evaluation of bronchiectasis. HRCT 06/04 w/ lower lobe predominant consolidations and aspiration changes w/ bronchiectasis, mucous present in the trachea. He has had workup outpatient including a normal A1AT phenotype, normal total IgG with subclass [address] findings this is most likely secondary recurrent aspiration and pneumonias but will obtain autoimmune evaluation to rule out other causes. PNA PCR resulted with PsA, culture not positive. TB PCR pending, AFB stain negative x 1. MRSA negative, HIV negative. RF 12. TERRA negative. -Recommend airway clearance with flutter valve, BID vest therapy and DuoNebs while inpatient. At home can continue on flutter valve and go back to home inhaler. - FOREST ECOLOGIST evaluation - Will f/u ANCA. - Will arrange follow up in clinic with us - Levaquin 750 mg daily x 14 day course (EOT 06/18) Assessment & Plan (06/05/2025 1:01 PM CDT): Elmer López is a 80 y.o. 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 We were consulted for evaluation of bronchiectasis. HRCT 06/04 w/ lower lobe predominant consolidations and aspiration changes w/ bronchiectasis, mucous present in the trachea. He has had workup outpatient including a normal A1AT phenotype, normal total IgG with subclass [address] findings this is most likely secondary recurrent aspiration and pneumonias but will obtain autoimmune evaluation to rule out other causes. PNA PCR resulted with PsA, susc pending. TB PCR pending, AFB stain negative x 1. MRSA nares pending, HIV negative. RF 12. -Recommend airway clearance with flutter valve, BID vest therapy and DuoNebs. - FOREST ECOLOGIST evaluation - Continue current antibiotics (meropenem, azithro) - Will follow up TERRA and ANCA. - flutter valve Assessment & Plan (06/04/2025 5:17 PM CDT): History of recurrent pneumonias undergoing recurrent po antibiotic treatment. CT shows evidence of bronchiectasis and airway mucus plugging lobar consolidation. He has historically have been treated with oral antibiotics with no definitive cultures obtained. Suspect a component of why this is recurrent is due to under treatment and ineffective airway clearance. Workup in the past showed normal alpha-1 antitrypsin genotype, normal total IgG with IgG 2 subclass deficiency which is difficult to interpret. Late onset in life less likely to be other genetic causes of bronchiectasis. Some concern in the past for aspiration as well. Has not undergone autoimmune evaluation in the past. -Recommend repeating chest imaging with HRCT now that he is about a month out from last imaging -Recommend airway clearance with flutter valve, BID vest therapy and DuoNebs. -Would add MRSA coverage with vancomycin and check MRSA nasal swab -Please obtain a sputum pneumonia PCR -Please obtain speech evaluation to rule out aspiration -Check TERRA, RF, ANCA (MPO PR3) Ischemic cardiomyopathy 10/28/201905/23 Assessment & Plan (06/05/2025 1:01 PM CDT): Suspect most of his dyspnea is due to pulmonary infection but we have no recent cardiac imaging. -Recommend a TTE given unclear baseline Assessment & Plan (06/04/2025 5:15 PM CDT): Suspect most of his dyspnea is due to pulmonary infection but we have no recent cardiac imaging. -Recommend a TTE given unclear baseline Assessment & Plan (06/04/2025 3:59 AM CDT): No TTE in chart but reported EF 45-50%, grade 1 DD 2020. Started on lasix IV 40mg daily to assist with respiratory status. - continue lasix 40mg IV daily - continue home metop XL 50mg - check NT-proBNP Encounters Date Type Department Care Team Description 06/15/2025 SHOP/CHAP Subsequent Outreach [facility] OP CASE MANAGEMENT [address] [place] [address] Yarelis Rachel LCSW 06/15/2025 Telephone [facility] Infectious Diseases [address] [place] [address] [place] [phone] Daniella Leach 06/15/2025 Telephone [facility] Infect[facility] Diseases [address] [place] [address] [place] [phone] Alyssa Chen 06/13/2025 Telephone [facility] Infect[facility] Diseases [address] [place] [address] [place] [phone] Alyssa Chen 06/08/2025 SHOP/CHAP Initial Outreach [facility] OP CASE MANAGEMENT [address] [place] [address] Yarelis Rachel LCSW 06/08/2025 Telephone [facility] Home Care Services [address] [facility] [address] [place] [phone] Lindsay Quiroz 06/08/2025 SHOP/CHAP Initial Eligibility Review [facility] OP CASE MANAGEMENT [address] [place] [address] Yarelis Rachel LCSW 06/07/2025 Telephone [facility] [address] [facility] [address] [place] [address] Lindsay Quiroz 06/07/2025 Telephone [facility] [address] [facility] [address] [place] [phone] Lindsay Quiroz 06/07/2025 Orders Only [facility] Scheduling [address] [place] [address] Camilo Shi MD Shortness of breath (Primary Dx) 06/06/2025 3:30 PM CDT - 06/06/2025 11:59 PM CDT Hospital Encounter [facility] [address] [place] [address] Discharge Disposition: Discharge to home or self care 06/04/2025 1:12 AM CDT - 06/07/2025 3:09 PM CDT Hospital Encounter [facility] [address] [place] [phone] Lukas Paredes MD Kocak, MD Raffy Smithwood, MD Tomer Marina, Dianna Flores MD Acute on chronic hypoxic respiratory failure (HCC) (Primary Dx) Discharge Disposition: Discharge to home or self care 06/02/2025 Telephone [facility] Infect[facility] Diseases [address] [place] [phone] Enma Tate RMA 06/02/2025 Telephone [facility] [address] [place] [phone] Alyssa Chen 05/30/2025 Documentation Internal Medicine Lukas Paredes MD 05/30/2025 Telephone [facility] [address] [place] [phone] Alyssa Chen 05/30/2025 Telephone [facility] [address] [place] [phone] Enma Tate RMA 05/04/2025 Telephone [facility] [address] [place] [phone] Kaylin Horvath, [facility] 05/04/2025 Telephone [facility] [address] [place] [phone] Daniella Leach 05/02/2025 1:22 PM CDT - 05/02/2025 11:59 PM CDT Hospital Encounter [facility] [address] [place] [address] Discharge Disposition: Discharge to home or self care 05/02/2025 10:24 AM CDT - 05/02/2025 11:59 PM CDT Hospital Encounter [facility] [address] [place] [id number] Diagnosis unknown Discharge Disposition: Discharge to home or self care 05/02/2025 10:17 AM CDT - 05/02/2025 11:59 PM CDT Hospital Encounter [facility] [address] [place] [id number] Discharge Disposition: Discharge to home or self care 05/02/2025 8:40 AM CDT Office Visit [facility] [address] [phone] Gladys Larson NP Mycobacterial infection, unspecified 04/25/2025 Documentation Internal Medicine Gladys Toure MD Transfer Notification 03/27/2025 Telephone [facility] [address] [place] [phone] [facility] TANIA Rothman from Last 3 Months Surgical [...] COPD Brother 3 Stevan Alcohol abuse Father Elmer Cancer Father Elmer Family history of malignant neoplasm - (Added [...] Brother 2 Bill Brother 3 Stevan Father Elmer Mother May Isidra Paternal Grandfather David Sister Isidra Peterson Social History Tobacco Use Types Packs/Day Years Used Date Smoking Tobacco: Former Cigarettes 1.5 65 0 03/12/1957 - 09/19/2018 Smokeless Tobacco: Never Comments:Quit 08/2019 Alcohol Use Standard Drinks/Week Comments Not Currently 0 (1 standard drink = 0.6 oz pur e alcohol) [facility] Utilities Answer Date Recorded In the past 12 months has [employer], gas, oil, or water [employer] threatened to shut off services in your home? No 06/08/2025 Social Connection and Isolat ion Panel [NHANES] Answer Date Recorded In a typical week, how many times do you talk on the phone with family, friends, or neighbors? More than three times a week 06/08/2025 How often do you get togethe r with friends or relatives? More than three times a week 06/08/2025 How often do you attend chur or restorationist services? Never 06/08/2025 Do you belong to any clubs o r organizations such as adventist groups, unions, fraternal or athletic groups, or school groups? No 06/08/2025 How often do you attend meet ings of the clubs or organizations you belong to? Never 06/08/2025 Are you , , di vorced, , never , or living with a partner? 06/08/2025 Overall Financial Resource Strain (CARDIA) Answe r Date Recorded How hard is it for you to pa y for the very basics like food, housing, medical care, and heating? Not hard at all 06/08/2025 Hunger Vital Sign Answer Date Recorded Within the past 12 months, y ou worried that your food would run out before you got the money to buy more. Never true 06/08/20 25 Within the past 12 months, t he food you bought just didn't last and you didn't have money to get more. Never true 06/08/2025 PRAPARE - Transportation Answer Date Re corded In the past 12 months, has l ack of transportation kept you from medical appointments or from getting medications? No 05/23 In the past 12 months, has l ack of transportation kept you from meetings, work, or from getting things needed for daily living? No 06/08/2025 Housing Stability Vital Sign Answer Antonio e Recorded In the last 12 months, was t here a time when you were not able to pay the mortgage or rent on time? No 06/08/2025 In the past 12 months, how m any times have you moved where you were living? 0 06/08/2025 At any time in the past 12 m [facility], were you homeless or living in a residential (including now)? No 06/08/2025 Personal Safety Answer Date Recorded Have you ever been in or are you currently in a harmful physical or emotional relationship or is someone making you feel afraid or unsafe? Denies 06/04/2025 Sex and Gender Information Value Date Recorded Sex Assigned at Not on file Legal Sex Male 9:37 AM [employer] Gender Identity Male 11/26/2019 3:10 PM [employer] Sexual Orientation Not on file Obstetrics History Last Filed Vital Signs Vital Sign Reading Time Taken Comments Blood Pressure 105/51 06/07/2025 11:51 AM CDT Pulse 87 06/07/2025 11:48 AM CDT Temperature 36.7 C (98.1 F) 06/07/2025 11:48 AM CDT Respiratory Rate 18 06/07/2025 11:48 AM CDT Oxygen Saturation 97% 06/07/2025 11:48 AM CDT Inhaled Oxygen Concentration - - Weight 77.2 kg (170 lb 1.6 oz) 06/04/2025 1:30 A M CDT Height 180.3 cm (5' 11) 06/04/2025 1:30 AM CDT Body Mass Index 23.72 06/04/2025 1:30 AM CDT Plan of Treatment Health Maintenance Due Date Last Done Comments Depression Screening 1945 DTaP/Tdap/Td Vaccine (1 - Tdap) 1955 Hepatitis B Screening 1962 Pneumococcal vaccine 65+ (1 of 2 - PCV) 1963 Abdominal Aortic Aneurysm (AAA) Screen 2009 Well Visit 65+ 2009 Zoster Vaccine (2 of 3) 11/21/2017 09/26/2017 Covid-19 Vaccine (3 - season) 2024, 01/22/2021 Influenza Vaccine (#1) 2025 09/26/2017, 2015 Fall Risk Assessment 06/07/2026 06/07/2025 Goals Goal Patient Goal Type Associated Problems Recent Progress Patient-Stated? Author Patient will have kept initial appointment and will show signs of improvement to baseline Care Plan Initial Follow-Up Appointment Yarelis Pineda, ENVIRONMENTAL TECHNOLOGY PROFESSOR Procedures Procedure Name Priority Date/Time Associated Diagnosis Comments EGFR Routine 06/06/2025 9:15 PM CDT DIFFERENTIAL AUTO Routine 06/06/2025 9:1 5 PM CDT PROTIME-INR Routine 06/06/2025 9:15 PM CDT CBC WITH AUTO DIFFERENTIAL Routine 06/06/2025 9:15 PM CDT COMPREHENSIVE METABOLIC PANEL Routine 06/06/2025 9:15 PM CDT FL MODIFIED BARIUM SWALLOW W VIDEO IP Routine 06/06/2025 3:40 PM CDT FOREST ECOLOGIST EVALUATE AND TREAT VIDEOFLUOROSCOPIC SWALLOW STUDY Routine 06/06/2025 3:30 PM CDT FOREST ECOLOGIST EVALUATE AND TREAT Routine 5 3:30 PM CDT FOREST ECOLOGIST EVALUATE AND TREAT Routine 3:30 PM CDT TRANSTHORACIC ECHO (TTE) COMPLETE W DOPPLER/CF W CONTRAST ED Urgent/IP Urgent 06/06/2025 12:04 PM CDT CHEST PHYSIO THERAPY Routine 06/06/2025 9:01 AM CDT CHEST PHYSIO THERAPY Routine 06/06/2025 8:57 AM CDT CHEST PHYSIO THERAPY Routine 06/06/2025 8:57 AM CDT MYCOBACTERIOLOGY AFB CULTURE AND ACID-FAST STAIN Routine 06/06/2025 6:02 AM CDT PEP THERAPY Routine 06/06/2025 6:01 AM CDT PEP THERAPY Routine 06/06/2025 12:00 AM CDT EGFR Routine 06/05/2025 10:58 PM CDT DIFFERENTIAL AUTO Routine 06/05/2025 10:58 PM CDT PROTIME-INR Routine 06/05/2025 10:58 PM CDT CBC WITH AUTO DIFFERENTIAL Routine 06/05/2025 10:58 PM CDT COMPREHENSIVE METABOLIC PANEL Routine 06/05/2025 10:58 PM CDT PEP THERAPY Routine 06/05/2025 6:00 PM CDT PEP THERAPY Routine 06/05/2025 12:00 PM CDT SPUTUM INDUCTION Routine 06/05/2025 6:01 AM CDT PEP THERAPY Routine 06/05/2025 6:01 AM CDT PNEUMONIA PCR Routine 06/05/2025 4:53 AM CDT PNEUMONIA PCR WITH AEROBIC CULTURE AND GRAM STAIN Routine 06/05/2025 4:53 AM CDT MYCOBACTERIOLOGY AFB CULTURE AND ACID-FAST STAIN Routine 06/05/2025 4:53 AM CDT MYCOBACTERIUM TUBERCULOSIS PCR Routine 06/05/2025 4:53 AM CDT INFECTION PREVENTION MRSA ONLY (STAPHYLOCOCCUS AUREUS) CULTURE Routine 06/05/2025 4:50 AM CDT PEP THERAPY Routine 06/05/2025 12:00 AM CDT EGFR Routine 06/04/2025 10:45 PM CDT DIFFERENTIAL AUTO Routine 06/04/2025 10:45 PM CDT PROTEIN ELECTROPHORESIS, WITH REFLEX, SERUM Routine 06/04/2025 10:45 PM CDT RHEUMATOID FACTOR Timed 06/04/2025 10:45 PM CDT TERRA QUALITATIVE WITH REFLEX TO TERRA QUANTITATIVE Timed 06/04/2025 10:45 PM CDT ANTI-NEUTROPHILIC CYTOPLASMIC ANTIBODY (ANCA) WITH REFLEX TO MPO AND PR3 ABS Timed 06/04/2025 10:45 PM CDT FOLATE Timed 06/04/2025 10:45 PM CDT FERRITIN Timed 06/04/2025 10:45 PM CDT IRON PROFILE W/ IBC Timed 06/04/2025 10:45 PM CDT VITAMIN B12 Timed 06/04/2025 10:45 PM CDT PROTIME-INR Routine 06/04/2025 10:45 PM CDT CBC WITH AUTO DIFFERENTIAL Routine 06/04/2025 10:45 PM CDT COMPREHENSIVE METABOLIC PANEL Routine 06/04/2025 10:45 PM CDT MAGNESIUM Routine 06/04/2025 10:45 PM CDT PHOSPHORUS Routine 06/04/2025 10:45 PM CDT RPR Timed 06/04/2025 10:45 PM CDT HIV 1/2 ANTIBODY PLUS P24 ANTIGEN Timed 06/04/2025 10:45 PM CDT HISTOPLASMA ANTIGEN Routine 06/04/2025 6 :49 PM CDT PEP THERAPY Routine 06/04/2025 6:00 PM CDT SPUTUM INDUCTION Routine 06/04/2025 5:[address] CHEST HIGH RESOLUTION WO CONTRAST ED Urgent/IP Urgent 06/04/2025 4:31 PM CDT PEP THERAPY Routine 06/04/2025 4:08 PM CDT PEP THERAPY Routine 06/04/2025 4:08 PM CDT INFECTION PREVENTION MRSA ONLY (STAPHYLOCOCCUS AUREUS) CULTURE Routine 06/04/2025 3:04 PM CDT COCCIDIOIDES ANTIBODIES Routine 06/04/20 10:50 AM CDT BLOOD GAS, VENOUS STAT 06/04/2025 10:50 AM CDT BLASTOMYCES ANTIBODY, EIA, S Routine 06/04/2025 10:50 AM CDT HISTOPLASMA ANTIBODY Routine 06/04/2025 10:50 AM CDT CRYPTOCOCCAL ANTIGEN, SERUM Routine 06/04/2025 10:50 AM CDT COCCIDIOIDES ANTIBODY SCREEN W/REFLEX Routine 06/04/2025 10:50 AM CDT ASPERGILLUS GALACTOMANNAN ANTIGEN Routine 06/04/2025 10:50 AM CDT XR CHEST 1 VIEW IP Routine 06/04/2025 6:30 AM CDT EGFR Routine 06/04/2025 4:35 AM CDT DIFFERENTIAL AUTO Routine 06/04/2025 4:3 5 AM CDT PRO B-TYPE NATRIURETIC PEPTIDE Routine 06/04/2025 4:35 AM CDT PROTIME-INR Routine 06/04/2025 4:35 AM CDT CBC WITH AUTO DIFFERENTIAL Routine 06/04/2025 4:35 AM CDT COMPREHENSIVE METABOLIC PANEL Routine 06/04/2025 4:35 AM CDT MAGNESIUM Routine 06/04/2025 4:35 AM CDT PHOSPHORUS Routine 06/04/2025 4:35 AM CDT LEGIONELLA ANTIGEN, URINE Routine 06/04/2025 3:22 AM CDT ECG 12-LEAD Routine 06/04/2025 3:21 AM CDT RESPIRATORY PATHOGEN PANEL Routine 06/04/2025 2:58 AM CDT MRSA ONLY (STAPHYLOCOCCUS AUREUS) CULTURE Routine 06/04/2025 2:53 AM CDT EGFR Routine 05/02/2025 10:25 AM CDT Mycobacterial infection, unspecified DIFFERENTIAL AUTO Routine 05/02/2025 10:25 AM CDT Mycobacterial infection, unspecified GLUCOSE, RANDOM (OUTREACH) Routine 05/02/2025 10:25 AM CDT Mycobacterial infection, unspecified COMPREHENSIVE METABOLIC PANEL WITHOUT GLUCOSE (OUTREACH) Routine 05/02/2025 10:25 AM CDT Mycobacterial infection, unspecified COMPREHENSIVE METABOLIC PANEL (OUTREACH) Routine 05/02/2025 10:25 AM CDT Mycobacterial infection, unspecified CBC WITH AUTO DIFFERENTIAL Routine 05/02/2025 10:25 AM CDT Mycobacterial infection, unspecified CT BODY OUTSIDE CONSULT Routine 05/02/20 10:24 AM CDT Diagnosis unknown CT BODY OUTSIDE REFERENCE Routine 05/02/2025 10:17 AM CDT from Last 3 Months Results * eGFR (06/06/2025 9:15 PM CDT) [facility] eGFR 75 >=60 mL/min/1. 73 m2 Comment: Interpretive Data [...] interpretive data was last reviewed 2021. Blood 06/06/2025 9:15 PM CDT 06/06/2025 10:33 PM CDT us Dianna Root MD LAB BLOOD ORDERABLES Final Resu lt [facility] Department [place] [address] * (ABNORMAL) Differential, auto (06/06/2025 9:15 PM CDT) [facility] Neutrophil abs 5.92 1.50 - 6.50 K/cumm Imm gran abs 0.14(H) 0.00 - 0.10 K/cumm [facility] Lymphocyte abs 1.20 0.80 - 3.30 K/cumm [facility] Monocyte abs 1.06(H) 0.20 - 0.80 K/cumm [facility] Eosinophil abs 0.40 0.00 - 0.50 K/cumm [facility] Basophil abs 0.03 0.00 - 0.10 K/cumm [facility] Neutrophil pct 67.7 % [facility] Comment: Interpretive Data Percent cell count reference ranges are not reported, since discordance with absolute values may lead to misinterpretation of CBC data. Current Interpretive Data was last revised on 2018. Imm gran pct 1.6 % [facility] [place] Comment: Interpretive Data Percent cell count reference ranges are not reported, since discordance with absolute values may lead to misinterpretation of CBC data. Current Interpretive Data was last revised on 2018. Lymphocyte pct 13.7 % [facility] Comment: Interpretive Data Percent cell count reference ranges are not reported, since discordance with absolute values may lead to misinterpretation of CBC data. Current Interpretive Data was last revised on 2018. Monocyte pct 12.1 % [facility] [place] Comment: Interpretive Data Percent cell count reference ranges are not reported, since discordance with absolute values may lead to misinterpretation of CBC data. Current Interpretive Data was last revised on 2018. Eosinophil pct 4.6 % [facility] [place] Comment: Interpretive Data Percent cell count reference ranges are not reported, since discordance with absolute values may lead to misinterpretation of CBC data. Current Interpretive Data was last revised on 2018. Basophil pct 0.3 % [facility] [place] Comment: Interpretive Data Percent cell count reference ranges are not reported, since discordance with absolute values may lead to misinterpretation of CBC data. Current Interpretive Data was last revised on 2018. Blood 06/06/2025 9:15 PM CDT 06/06/2025 10:33 PM CDT us Dianna Root MD LAB BLOOD ORDERABLES Final Resu lt [facility] Department of Laboratories [place], [place] [id number] * (ABNORMAL) CBC with auto differential (06/06/2025 9:15 PM CDT) WBC 8.75 3.80 - 9.90 K/cumm Hgb 8.9(L) 13.0 - 17.5 g/dL [facility] Hct 28.3(L) 38.9 - 50.3 % [facility] Plt 263 150 - 400 K/cumm [facility] MPV 10.8 9.1 - 12.3 fL [facility] RBC 3.18(L) 4.30 - 5.80 M/cumm [facility] MCV 89.0 81.3 - 96.4 fL [facility] MCH 28.0 27.1 - 33.3 pg [facility] MCHC 31.4(L) 32.3 - 35.7 g/dL [facility] RDW CV 15.0(H) 11.1 - 14.9 % [facility] RDW SD 48.6(H) 35.7 - 48.1 fL [facility] NRBC abs 0.00 0.00 - 0.01 K/cumm [facility] Blood 06/06/2025 9:15 PM CDT 06/06/2025 10:33 PM CDT Dianna Root MD LAB BLOOD ORDERABLES Final Resu lt Performing Organization Address [facility] de Phone Number [facility] Department [place] [address] * (ABNORMAL) Protime-INR (06/06/2025 9:15 PM CDT) PT 17.4(H) 9.7 - 13.0 sec INR 1.60(H) 0.90 - 1.20 [facility] Comment: Interpretive data Oral anticoagulant therapeutic ranges: Venous thromboembolism prophylaxis or treatment: 2.0-3.0 CARDIOLOGY Standard range: 2.0-3.0 High-intensity range: 2.5-3.5 Refer to indication-specific guidelines for appropriate target ranges for prosthetic heart valve replacement. Current interpretive data was last revised on 2019. Blood 06/06/2025 9:15 PM CDT 06/06/2025 10:36 PM CDT Dianna Root MD LAB BLOOD ORDERABLES Final Resu lt Performing Organization Address [facility] Co de Phone Number [facility] Department [place] [address] * (ABNORMAL) Comprehensive metabolic panel (06/06/2025 9:15 PM CDT) Sodium 139 135 - 145 mmol/L Potassium, pl 4.7 3.3 - 4.9 mmol/L [facility] Chloride 96(L) 97 - 110 mmol/L [facility] CO2 35(H) 22 - 32 mmol/L [facility] Anion gap 8 2 - 15 mmol/L [facility] BUN 27(H) 6 - 25 mg/dL [facility] Creatinine 1.01 0.80 - 1.30 mg/dL [facility] Glucose 103 70 - 199 mg/dL [facility] Comment: Interpretive Data Fasting glucose >/= 126 [...] Current interpretive data was last revised 2022. Calcium 9.6 8.5 - 10.3 mg/dL [facility] Bilirubin, total 0.3 0.1 - 1.2 mg/dL [facility] Protein, pl 6.8 6.5 - 8.5 g/dL [facility] Albumin 3.2(L) 3.5 - 5.0 g/dL [facility] Alk phos 194(H) 40 - 130 Units/L [facility] ALT 23 7 - 55 Units/L [facility] AST 34 10 - 50 Units/L [facility] Blood 06/06/2025 9:15 PM CDT 06/06/2025 10:33 PM CDT us Dianna Root MD LAB BLOOD ORDERABLES Final Resu lt [facility] Department [place] [address] * FL Modified Barium Swallow W Video (06/06/2025 3:40 PM CDT) Anatomical Region Laterality Modality Head and Neck N/A Computed Radiogr aphy 06/06/2025 3:53 PM CDT Impressions 06/09/2025 8:22 AM CDT The swallowing mechanism is normal; see above comments. Please refer to the Speech Pathology procedure note for safe swallow recommendations as well as additional information regarding the oral-pharyngeal swallow function, plan of care, and recommended follow up. Dictated by: Anna Samaniego M.D. The radiology attending physician has personally reviewed this study, and had reviewed and/or edited this written report and agrees with it. Electronically signed by: Catrachita Katz M.D. Narrative 06/09/2025 8:22 AM CDT EXAMINATION: MODIFIED BARIUM SWALLOW HISTORY: Dysphagia. TECHNIQUE: This procedure was completed in conjunction with a Speech Language Pathologist. The patient was given barium of multiple different consistencies to swallow. Video fluoroscopy was employed during the exam. FINDINGS: Oral-pharyngeal swallow function is within normal limits. Penetration: Yes There is penetration of thin liquids. Penetration is sensed. The penetrated material is cleared. Aspiration: No Residue:Yes There is pharyngeal residue of thin liquids, purees, and solid. Residue is sensed. The residual material is not cleared. Other comments: None Procedure Note Catrachita Katz MD - 06/09/2025 EXAMINATION: MODIFIED BARIUM SWALLOW HISTORY: Dysphagia. TECHNIQUE: This procedure was completed in conjunction with a Speech Language Pathologist. The patient was given barium of multiple different consistencies to swallow. Video fluoroscopy was employed during the exam. FINDINGS: Oral-pharyngeal swallow function is within normal limits. Penetration: Yes There is penetration of thin liquids. Penetration is sensed. The penetrated material is cleared. Aspiration: No Residue:Yes There is pharyngeal residue of thin liquids, purees, and solid. Residue is sensed. The residual material is not cleared. Other comments: None IMPRESSION: The swallowing mechanism is normal; see above comments. Please refer to the Speech Pathology procedure note for safe swallow recommendations as well as additional information regarding the oral-pharyngeal swallow function, plan of care, and recommended follow up. Dictated by: Anna Samaniego M.D. The radiology attending physician has personally reviewed this study, and had reviewed and/or edited this written report and agrees with it. Electronically signed by: Catrachita Katz M.D. us Lukas Paredes MD IMG FLUOROSCOPY PROCEDURE S Final Result * FOREST ECOLOGIST Evaluate and Treat (VFSS) (06/06/2025 3:30 PM CDT) Narrative Taisha Auguste, FOREST ECOLOGIST - 06/06/2025 3:30 PM CDT Taisha Auguste SLP 06/06/2025 4:33 PM Speech-Language Pathology: Videofluoroscopic Study of Swallow (VFSS/MBS) HPI/PMH 80 y.o. 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 Respiratory/Intubation Status: NC 3 L/min CXR 06/04 - There are multifocal airspace opacities in the right mid and lower lung and left lung base. This likely represents multifocal pneumonia. Small right pleural effusion. CCT 06/04 - New consolidations within the dependent portions of the upper lobes which is suspicious for pneumonia likely secondary to aspiration given the dependent distribution. This is superimposed on areas of chronic scarring, round atelectasis, bronchial wall thickening predominantly within lower lobes. Overall findings are consistent with acute on chronic aspiration. Precautions: Fall PLOF: No prior ST. Current Diet Order: Mechanical soft Baseline Diet: soft foods, regular liquids General Information Elmer López 06/06/25 FOREST ECOLOGIST Received On: 06/06/25 General Observations: Pt was seen sitting upright in fluoro chair. Pleasant and agreeable to exam. Reason for Referral: further define swallow physiology Pain Score: 0 - No pain If pain >4, was RN notified? N/A Patient Stated Goal/Comments: none stated Clinical Impression & Professional Recommendations Diet Solids Recommendation: Mechanical soft (can advance to regular per pt request) Diet Liquids Recommendations: Thin/regular Recommended Form of Medications: As tolerated Compensatory Strategies/Modifications: Slow rate, Single sips Postural Recommendations: Upright Assistance with feeding/swallowing: Setup only Specialty Instructions: good oral care 2-3x per day Overall Clinical Impression/Additional Information: Oral and pharyngeal swallow are within functional limits Oral Phase Deficits: premature spillage of liquids Pharyngeal Phase Deficits: reduced laryngeal elevation, reduced hyoid excursion, reduced tongue base retraction, incomplete laryngeal vestibule closure Results: Penetration to the level of the vocal cords occurred x1 with large drink of thin liquids via straw. Pt was sensate to penetration and cleared material from the vocal cords with throat clear. Frequent high penetration also observed with thin liquids. Majority of penetration was cleared upon swallow completion. Reflexive cough successful in fully ejecting from the laryngeal vestibule. No penetration or aspiration occurred with puree or solid. Trace valleculae and pyriform sinus residue present across consistencies. Residue was reduced with liquid wash or repeat swallow. Assessment Details & Results Purpose and Procedure of Videofluoroscopic Study of Swallow: Videofluoroscopic Study of Swallow completed to assess oropharyngeal swallow function and safety/efficiency of the swallow so that diet recommendations can be made. This test is completed in conjunction with Radiology. Results of this test are indicative of performance at the time of the exam. Standard procedure is in lateral view at 90 degrees. Consistencies Administered: Thin liquids, Purees, Solids Administered consistencies contain barium product. Thin Liquids: Laryngeal Penetration: Present Aspiration Present: No Penetration Aspiration Scale-Thin: 4-Material enters the airway, contacts the vocal folds and is ejected from the airway Purees: Laryngeal Penetration: None Aspiration Present: No Penetration Aspiration Scale-Puree: 1-Material does not enter airway Solids: Laryngeal Penetration: None Aspiration Present: No Penetration Aspiration Scale-Solids: 1-Material does not enter airway MBSImp: MBSImp Results: Lip closure : 1-Interlabial escape, no progression to anterior lip Tongue Control with Bolus Hold: 2-Posterior escape of less than half of bolus Bolus Preparation/Mastication : 1-Slow prolonged chewing/mashing with complete re-collection Bolus Transport/Lingual Motion : 0-Brisk tongue motion Oral Residue: 2-Residue collection on oral structures Initiation of Pharyngeal Swallow : 3-Bolus head in pyriforms Soft Palate : 0-No bolus between soft palate and pharyngeal wall Laryngeal Elevation : 1-Partial superior movement of thyroid cartilage with partial approximation of arytenoids to epiglottic petiole Anterior Hyoid Excursion: 1-Partial anterior movement Epiglottic Movement: 0-Complete inversion Laryngeal Vestibular Closure: 1-Incomplete, narrow column of air/contrast in laryngeal vestibule Pharyngeal Stripping Wave: 0-Present and complete Pharyngeal Contraction (AP view only): Not assessed, No AP view Pharyngoesophageal Segment Opening : 1-Partial distension/partial duration, partial obstruction of flow Tongue Base Retraction : 2-Narrow column of contrast or air between tongue base and posterior pharyngeal wall Pharyngeal Residue : 2-Collection of residue within or on pharyngeal structures Esophageal Clearance (upright position): Not assessed, No AP view Dysphagia Outcome and Severity Scale: Dysphagia Outcomes and Severity Scale: 7 Normal Levels 1 & 2 on the JUANA indicate need for nonoral nutrition. Treatment Treatment was not provided this date. Please reference care plan for treatment goals and details, if indicated. Plan FOREST ECOLOGIST Frequency of Services during current admission: Discharge from this Service FOREST ECOLOGIST Recommendation (Add'l Services): No further FOREST ECOLOGIST indicated Next Visit Plan: No further ST warranted Additional Referrals: N/A Discharge Summary Statement If this is the last swallow therapy visit, this serves as the discharge summary. Lukas Paredes MD FOREST ECOLOGIST ORDERABLES Final Res ult * FOREST ECOLOGIST Evaluation and Treatment (06/06/2025 3:30 PM CDT) Narrative Taisha Auguste SLP - 06/06/2025 3:30 PM CDT Taisha Auguste SLP 06/06/2025 4:33 PM Speech-Language Pathology: Videofluoroscopic Study of Swallow (VFSS/MBS) HPI/PMH 80 y.o. 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 Respiratory/Intubation Status: NC 3 L/min CXR 06/04 - There are multifocal airspace opacities in the right mid and lower lung and left lung base. This likely represents multifocal pneumonia. Small right pleural effusion. CCT 06/04 - New consolidations within the dependent portions of the upper lobes which is suspicious for pneumonia likely secondary to aspiration given the dependent distribution. This is superimposed on areas of chronic scarring, round atelectasis, bronchial wall thickening predominantly within lower lobes. Overall findings are consistent with acute on chronic aspiration. Precautions: Fall PLOF: No prior ST. Current Diet Order: Mechanical soft Baseline Diet: soft foods, regular liquids General Information Elmer López 06/06/25 FOREST ECOLOGIST Received On: 06/06/25 General Observations: Pt was seen sitting upright in fluoro chair. Pleasant and agreeable to exam. Reason for Referral: further define swallow physiology Pain Score: 0 - No pain If pain >4, was RN notified? N/A Patient Stated Goal/Comments: none stated Clinical Impression & Professional Recommendations Diet Solids Recommendation: Mechanical soft (can advance to regular per pt request) Diet Liquids Recommendations: Thin/regular Recommended Form of Medications: As tolerated Compensatory Strategies/Modifications: Slow rate, Single sips Postural Recommendations: Upright Assistance with feeding/swallowing: Setup only Specialty Instructions: good oral care 2-3x per day Overall Clinical Impression/Additional Information: Oral and pharyngeal swallow are within functional limits Oral Phase Deficits: premature spillage of liquids Pharyngeal Phase Deficits: reduced laryngeal elevation, reduced hyoid excursion, reduced tongue base retraction, incomplete laryngeal vestibule closure Results: Penetration to the level of the vocal cords occurred x1 with large drink of thin liquids via straw. Pt was sensate to penetration and cleared material from the vocal cords with throat clear. Frequent high penetration also observed with thin liquids. Majority of penetration was cleared upon swallow completion. Reflexive cough successful in fully ejecting from the laryngeal vestibule. No penetration or aspiration occurred with puree or solid. Trace valleculae and pyriform sinus residue present across consistencies. Residue was reduced with liquid wash or repeat swallow. Assessment Details & Results Purpose and Procedure of Videofluoroscopic Study of Swallow: Videofluoroscopic Study of Swallow completed to assess oropharyngeal swallow function and safety/efficiency of the swallow so that diet recommendations can be made. This test is completed in conjunction with Radiology. Results of this test are indicative of performance at the time of the exam. Standard procedure is in lateral view at 90 degrees. Consistencies Administered: Thin liquids, Purees, Solids Administered consistencies contain barium product. Thin Liquids: Laryngeal Penetration: Present Aspiration Present: No Penetration Aspiration Scale-Thin: 4-Material enters the airway, contacts the vocal folds and is ejected from the airway Purees: Laryngeal Penetration: None Aspiration Present: No Penetration Aspiration Scale-Puree: 1-Material does not enter airway Solids: Laryngeal Penetration: None Aspiration Present: No Penetration Aspiration Scale-Solids: 1-Material does not enter airway MBSImp: MBSImp Results: Lip closure : 1-Interlabial escape, no progression to anterior lip Tongue Control with Bolus Hold: 2-Posterior escape of less than half of bolus Bolus Preparation/Mastication : 1-Slow prolonged chewing/mashing with complete re-collection Bolus Transport/Lingual Motion : 0-Brisk tongue motion Oral Residue: 2-Residue collection on oral structures Initiation of Pharyngeal Swallow : 3-Bolus head in pyriforms Soft Palate : 0-No bolus between soft palate and pharyngeal wall Laryngeal Elevation : 1-Partial superior movement of thyroid cartilage with partial approximation of arytenoids to epiglottic petiole Anterior Hyoid Excursion: 1-Partial anterior movement Epiglottic Movement: 0-Complete inversion Laryngeal Vestibular Closure: 1-Incomplete, narrow column of air/contrast in laryngeal vestibule Pharyngeal Stripping Wave: 0-Present and complete Pharyngeal Contraction (AP view only): Not assessed, No AP view Pharyngoesophageal Segment Opening : 1-Partial distension/partial duration, partial obstruction of flow Tongue Base Retraction : 2-Narrow column of contrast or air between tongue base and posterior pharyngeal wall Pharyngeal Residue : 2-Collection of residue within or on pharyngeal structures Esophageal Clearance (upright position): Not assessed, No AP view Dysphagia Outcome and Severity Scale: Dysphagia Outcomes and Severity Scale: 7 Normal Levels 1 & 2 on the JUANA indicate need for nonoral nutrition. Treatment Treatment was not provided this date. Please reference care plan for treatment goals and details, if indicated. Plan FOREST ECOLOGIST Frequency of Services during current admission: Discharge from this Service FOREST ECOLOGIST Recommendation (Add'l Services): No further FOREST ECOLOGIST indicated Next Visit Plan: No further ST warranted Additional Referrals: N/A Discharge Summary Statement If this is the last swallow therapy visit, this serves as the discharge summary. us Lukas Paredes MD FOREST ECOLOGIST ORDERABLES Final Res ult * FOREST ECOLOGIST Evaluation and Treatment (06/06/2025 3:30 PM CDT) Narrative Taisha Auguste SLP - 06/06/2025 3:30 PM CDT Taisha Auguste SLP 06/06/2025 4:33 PM Speech-Language Pathology: Videofluoroscopic Study of Swallow (VFSS/MBS) HPI/PMH 80 y.o. 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 Respiratory/Intubation Status: NC 3 L/min CXR 06/04 - There are multifocal airspace opacities in the right mid and lower lung and left lung base. This likely represents multifocal pneumonia. Small right pleural effusion. CCT 06/04 - New consolidations within the dependent portions of the upper lobes which is suspicious for pneumonia likely secondary to aspiration given the dependent distribution. This is superimposed on areas of chronic scarring, round atelectasis, bronchial wall thickening predominantly within lower lobes. Overall findings are consistent with acute on chronic aspiration. Precautions: Fall PLOF: No prior ST. Current Diet Order: Mechanical soft Baseline Diet: soft foods, regular liquids General Information Elmer López 06/06/25 FOREST ECOLOGIST Received On: 06/06/25 General Observations: Pt was seen sitting upright in fluoro chair. Pleasant and agreeable to exam. Reason for Referral: further define swallow physiology Pain Score: 0 - No pain If pain >4, was RN notified? N/A Patient Stated Goal/Comments: none stated Clinical Impression & Professional Recommendations Diet Solids Recommendation: Mechanical soft (can advance to regular per pt request) Diet Liquids Recommendations: Thin/regular Recommended Form of Medications: As tolerated Compensatory Strategies/Modifications: Slow rate, Single sips Postural Recommendations: Upright Assistance with feeding/swallowing: Setup only Specialty Instructions: good oral care 2-3x per day Overall Clinical Impression/Additional Information: Oral and pharyngeal swallow are within functional limits Oral Phase Deficits: premature spillage of liquids Pharyngeal Phase Deficits: reduced laryngeal elevation, reduced hyoid excursion, reduced tongue base retraction, incomplete laryngeal vestibule closure Results: Penetration to the level of the vocal cords occurred x1 with large drink of thin liquids via straw. Pt was sensate to penetration and cleared material from the vocal cords with throat clear. Frequent high penetration also observed with thin liquids. Majority of penetration was cleared upon swallow completion. Reflexive cough successful in fully ejecting from the laryngeal vestibule. No penetration or aspiration occurred with puree or solid. Trace valleculae and pyriform sinus residue present across consistencies. Residue was reduced with liquid wash or repeat swallow. Assessment Details & Results Purpose and Procedure of Videofluoroscopic Study of Swallow: Videofluoroscopic Study of Swallow completed to assess oropharyngeal swallow function and safety/efficiency of the swallow so that diet recommendations can be made. This test is completed in conjunction with Radiology. Results of this test are indicative of performance at the time of the exam. Standard procedure is in lateral view at 90 degrees. Consistencies Administered: Thin liquids, Purees, Solids Administered consistencies contain barium product. Thin Liquids: Laryngeal Penetration: Present Aspiration Present: No Penetration Aspiration Scale-Thin: 4-Material enters the airway, contacts the vocal folds and is ejected from the airway Purees: Laryngeal Penetration: None Aspiration Present: No Penetration Aspiration Scale-Puree: 1-Material does not enter airway Solids: Laryngeal Penetration: None Aspiration Present: No Penetration Aspiration Scale-Solids: 1-Material does not enter airway MBSImp: MBSImp Results: Lip closure : 1-Interlabial escape, no progression to anterior lip Tongue Control with Bolus Hold: 2-Posterior escape of less than half of bolus Bolus Preparation/Mastication : 1-Slow prolonged chewing/mashing with complete re-collection Bolus Transport/Lingual Motion : 0-Brisk tongue motion Oral Residue: 2-Residue collection on oral structures Initiation of Pharyngeal Swallow : 3-Bolus head in pyriforms Soft Palate : 0-No bolus between soft palate and pharyngeal wall Laryngeal Elevation : 1-Partial superior movement of thyroid cartilage with partial approximation of arytenoids to epiglottic petiole Anterior Hyoid Excursion: 1-Partial anterior movement Epiglottic Movement: 0-Complete inversion Laryngeal Vestibular Closure: 1-Incomplete, narrow column of air/contrast in laryngeal vestibule Pharyngeal Stripping Wave: 0-Present and complete Pharyngeal Contraction (AP view only): Not assessed, No AP view Pharyngoesophageal Segment Opening : 1-Partial distension/partial duration, partial obstruction of flow Tongue Base Retraction : 2-Narrow column of contrast or air between tongue base and posterior pharyngeal wall Pharyngeal Residue : 2-Collection of residue within or on pharyngeal structures Esophageal Clearance (upright position): Not assessed, No AP view Dysphagia Outcome and Severity Scale: Dysphagia Outcomes and Severity Scale: 7 Normal Levels 1 & 2 on the JUANA indicate need for nonoral nutrition. Treatment Treatment was not provided this date. Please reference care plan for treatment goals and details, if indicated. Plan FOREST ECOLOGIST Frequency of Services during current admission: Discharge from this Service FOREST ECOLOGIST Recommendation (Add'l Services): No further FOREST ECOLOGIST indicated Next Visit Plan: No further ST warranted Additional Referrals: N/A Discharge Summary Statement If this is the last swallow therapy visit, this serves as the discharge summary. us Keith Alexander MD FOREST ECOLOGIST ORDERABLES Final Resu lt * TRANSTHORACIC ECHO (TTE) COMPLETE W DOPPLER/CF W CONTRAST (06/06/2025 12:04 PM CDT) EF Mod BP 55 % CONS SCIMAGE Anatomical Region Laterality Modality Ultrasound 06/06/2025 11:1 7 AM CDT Narrative 06/06/2025 1:37 PM CDT [facility] Cardiac [facility] [place] [address] Transthoracic Echocardiographic Report Patient Name: ELMER LÓPEZ R : 1945 (80y 3m) Gender: M Study Date: 06/06/2025 11:17:38 AM Ht(Inch): 71 Wt(Lb): 169.97 BSA: 1.97 [employer] Developer: Estrellita Carrero RDCS Location: [id number] Order Provider: DIANNA ROOT Heart Rate: 80 BMI: 23.7 BP: 138 / 61 Ref Provider: DIANNA ROOT Fellow: Isaiah Damon MD PROCEDURES: Echocardiographic Report: Transthoracic complete echo with strain imaging and contrast, 2D, spectral and tissue Doppler, color flow Doppler, M-mode. Contrast: Contrast Enhancement was Employed: Due to suboptimal image quality with inadequate visualization of at least 2 of 16 LV wall segments in any view after initial imaging. Perflutren contrast was administered using the volume necessary to obtain adequate images. 1.1 ml Optison Administered, (1.9 ml wasted). INDICATIONS: Shortness of breath. CONCLUSIONS: 1. Normal left ventricular size based on volume index. Concentric LV remodeling. Normal left ventricular systolic function. The Ejection Fraction (Stern's) is measured at 55 %. The average global longitudinal strain is abnormal. The LV global strain is: -15.0 %. 2. There is hypokinesis in the apical septum, mid septum and apex. 3. Normal right ventricular size. Normal right ventricular systolic function. 4. There is no significant valvular heart disease. 5. Normal pericardium without pericardial effusion. 6. Upper normal aortic root size at sinuses of Valsalva. Normal aortic root size when indexed. 7. The IVC was <2.1 cm and collapsibility >50%. (est. RA pressure 0-5 mmHg). 8. Mild MAC. ATTESTATION: I have personally reviewed this study with a fellow in a teaching setting and attest to the findings and conclusions. - DISCLAIMER: The study images and the final report will be retained in the patient chart by the Echo Laboratory for the legally required time period. This chart constitutes the legal record of any testing performed. FINDINGS: Left Ventricle: Normal left ventricular size based on volume index. Concentric LV remodeling. Normal left ventricular systolic function. The Ejection Fraction (Stern's) is measured at 55 %. The average global longitudinal strain is abnormal. The LV global strain is: -15.0 %. Regional Wall Motion: There is hypokinesis in the apical septum, mid septum and apex. Right Ventricle: Normal right ventricular size. Normal right ventricular systolic function. Left Atrium: The left atrium is normal in size. Right Atrium: The right atrium is normal in size. Mitral Valve: Mild mitral annular calcification. No mitral regurgitation. Aortic Valve: Trileaflet aortic valve. Mildly calcified NCC. No aortic regurgitation. No aortic valve stenosis. The mean transaortic gradient is 3 mmHg. The aortic valve area by the continuity equation (using VTI) is 2 cm2. Aortic valve dimensionless index is 0.64. Tricuspid Valve: Normal tricuspid valve structure. No tricuspid regurgitation. Pulmonic Valve: Normal pulmonic valve structure. No pulmonic valve stenosis present. Pericardium: Normal pericardium without pericardial effusion. Aorta: Upper normal aortic root size at sinuses of Valsalva. Normal aortic root size when indexed. IVC: The IVC was <2.1 cm and collapsibility >50%. (est. RA pressure 0-5 mmHg). PASP: Unable to determine PASP due to inadequate TR jet. MEASUREMENTS: 2D/MM Value Range Doppler Value Range LVIDd 2D 3.98 cm [ 4.20 - 5.80 ] AV Peak Jt 1.2 m/s [ 1.0 - 1.7 ] LVIDs 2D 2.74 cm [ 2.50 - 4.00 ] AV Peak PG 5.76 mmHg IVSd 2D 1.27 cm [ 0.60 - 1.00 ] AV Mean PG 3 mmHg LVPWd 2D 1.25 cm [ 0.60 - 1.00 ] AV VTI 21.8 cm LV Thickness Ratio 1.0 LVOT Peak Jt 0.9 m/s [ 0.7 - 1.1 ] LV FS 2D 31.13 % [ 25.00 - 43.00 ] LVOT Peak PG 3.24 mmHg LV Mass 2D 178.65 g LVOT Mean PG 2 mmHg LV Mass Index 2D 90.69 g/m2 LVOT VTI 14.0 cm RWT 0.63 LVOT Diam 1.99 cm EDV Mod BP 97.86 ml [ 62.00 - 150.00 ] VOLODYMYR VTI 2.00 cm2 LV EDV Index 49.68 ml/m2 LVOT/AV VTI 0.64 - Dimensionless index (DVI) ESV Mod BP 44.34 ml [ 21.00 - 61.00 ] Med E` Jt 4.0 cm/sec [ 8.0 - 25.0 ] EF Mod BP 55 % [ 52 - 72 ] Lat E` Jt 4.2 cm/sec [ 10.0 - 25.0 ] LV GLS -15.0 % [ -25.0 - -18.0 ] RV S` 12.24 cm/sec LA Length 4C 4.66 cm PV Peak Jt 0.6 m/s [ 0.4 - 0.8 ] LA Length 2C 4.97 cm PV Peak PG 1.44 mmHg LA Volume BP 33.09 ml LA Volume Index 16.80 ml/m2 [ 16.00 - 34.00 ] TAPSE 1.97 cm [ 1.71 - 5.00 ] AoR Diam 2D 3.75 cm [ 3.10 - 3.70 ] Ao Root Index 1.90 cm/m2 [ 1.00 - 2.00 ] Electronically Signed By: Nava Morales M.D. 06/06/2025 1:36:44 PM CDT Procedure Note Nava Morales MD - 06/06/2025 [facility] Cardiac [facility] [place] [address] Transthoracic Echocardiographic Report Patient Name: ELMER LÓPEZ R : 1945 (80y 3m) Gender: M Study Date: 06/06/2025 11:17:38 AM Ht(Inch): 71 Wt(Lb): 169.97 BSA: 1.97 [employer] Developer: Estrellita Carrero RDCS Location: [id number] Order Provider:DIANNA ROOT Heart Rate: 80 BMI: 23.7 BP: 138 / 61 Ref Provider: DIANNA ROOT Fellow: Isaiah Damon MD PROCEDURES: Echocardiographic Report: Transthoracic complete echo with strain imagingand contrast, 2D, spectral and tissue Doppler, color flow Doppler, M-mode. Contrast: Contrast Enhancement was Employed: Due to suboptimal imagequality with inadequate visualization of at least 2 of 16 LV wall segments in any viewafter initial imaging. Perflutren contrast was administered using the volume necessaryto obtain adequate images. 1.1 ml Optison Administered, (1.9 ml wasted). INDICATIONS: Shortness of breath. CONCLUSIONS: 1. Normal left ventricular size based on volume index. Concentric LVremodeling. Normal left ventricular systolic function. The Ejection Fraction (Stern's) ismeasured at 55 %. The average global longitudinal strain is abnormal. The LV globalstrain is: - 15.0 %. 2. There is hypokinesis in the apical septum, mid septum and apex. 3. Normal right ventricular size. Normal right ventricular systolicfunction. 4. There is no significant valvular heart disease. 5. Normal pericardium without pericardial effusion. 6. Upper normal aortic root size at sinuses of Valsalva. Normal aorticroot size when indexed. 7. The IVC was <2.1 cm and collapsibility >50%. (est. RA pressure 0-5mmHg). 8. Mild MAC. ATTESTATION: I have personally reviewed this study with a fellow in a teaching settingand attest to the findings and conclusions. - DISCLAIMER: The study images and the final report will be retained in the patientchart by the Echo Laboratory for the legally required time period. This chart constitutesthe legal record of any testing performed. FINDINGS: Left Ventricle: Normal left ventricular size based on volume index.Concentric LV remodeling. Normal left ventricular systolic function. The EjectionFraction (Stern's) is measured at 55 %. The average global longitudinal strain is abnormal.The LV global strain is: -15.0 %. Regional Wall Motion: There is hypokinesis in the apical septum, midseptum and apex. Right Ventricle: Normal right ventricular size. Normal right ventricularsystolic function. Left Atrium: The left atrium is normal in size. Right Atrium: The right atrium is normal in size. Mitral Valve: Mild mitral annular calcification. No mitralregurgitation. Aortic Valve: Trileaflet aortic valve. Mildly calcified NCC. No aorticregurgitation. No aortic valve stenosis. The mean transaortic gradient is 3 mmHg. The aorticvalve area by the continuity equation (using VTI) is 2 cm2. Aortic valve dimensionlessindex is 0.64. Tricuspid Valve: Normal tricuspid valve structure. No tricuspidregurgitation. Pulmonic Valve: Normal pulmonic valve structure. No pulmonic valvestenosis present. Pericardium: Normal pericardium without pericardial effusion. Aorta: Upper normal aortic root size at sinuses of Valsalva. Normal aorticroot size when indexed. IVC: The IVC was <2.1 cm and collapsibility >50%. (est. RA pressure 0-5mmHg). PASP: Unable to determine PASP due to inadequate TR jet. MEASUREMENTS: 2D/MM Value Range DopplerValue Range LVIDd 2D 3.98 cm [ 4.20 - 5.80 ] AV Peak Vel1.2 m/s [ 1.0 - 1.7 ] LVIDs 2D 2.74 cm [ 2.50 - 4.00 ] AV Peak PG5.76 mmHg IVSd 2D 1.27 cm [ 0.60 - 1.00 ] AV Mean PG3 mmHg LVPWd 2D 1.25 cm [ 0.60 - 1.00 ] AV VTI21.8 cm LV Thickness Ratio 1.0 LVOT Peak Vel0.9 m/s [ 0.7 - 1.1 ] LV FS 2D 31.13 % [ 25.00 - 43.00 ] LVOT Peak PG3.24 mmHg LV Mass 2D 178.65 g LVOT Mean PG2 mmHg LV Mass Index 2D 90.69 g/m2 LVOT VTI14.0 cm RWT 0.63 LVOT Diam1.99 cm EDV Mod BP 97.86 ml [ 62.00 - 150.00 ] VOLODYMYR VTI2.00 cm2 LV EDV Index 49.68 ml/m2 LVOT/AV VTI0.64 - Dimensionless index (DVI) ESV Mod BP 44.34 ml [ 21.00 - 61.00 ] Med E` Vel4.0 cm/sec [ 8.0 - 25.0 ] EF Mod BP 55 % [ 52 - 72 ] Lat E` Vel4.2 cm/sec [ 10.0 - 25.0 ] LV GLS -15.0 % [ -25.0 - -18.0 ] RV S`12.24 cm/sec LA Length 4C 4.66 cm PV Peak Vel0.6 m/s [ 0.4 - 0.8 ] LA Length 2C 4.97 cm PV Peak PG1.44 mmHg LA Volume BP33.09 ml LA Volume Index 16.80 ml/m2 [ 16.00 - 34.00 ] TAPSE 1.97 cm [ 1.71 - 5.00 ] AoR Diam 2D 3.75 cm [ 3.10 - 3.70 ] Ao Root Index 1.90 cm/m2 [ 1.00 - 2.00 ] Electronically Signed By: Nava Morales M.D. 06/06/2025 1:36:44 PM CDT Dianna Root MD CV ECHO PROCEDURES Final Result * eGFR (06/05/2025 10:58 PM CDT) eGFR 74 >=60 mL/min/1. 73 m2 Comment: Interpretive Data [...] interpretive data was last reviewed 2021. Blood 06/05/2025 10:5 8 PM CDT 06/06/2025 12:38 AM CDT Dianna Root MD LAB BLOOD ORDERABLES Final Resu lt [facility] Department [place] [address] * (ABNORMAL) Differential, auto (06/05/2025 10:58 PM CDT) Neutrophil abs 4.68 1.50 - 6.50 K/cumm Imm gran abs 0.08 0.00 - 0.10 K/cumm [facility] Lymphocyte abs 1.24 0.80 - 3.30 K/cumm [facility] Monocyte abs 0.96(H) 0.20 - 0.80 K/cumm [facility] Eosinophil abs 0.50 0.00 - 0.50 K/cumm [facility] Basophil abs 0.03 0.00 - 0.10 K/cumm [facility] Neutrophil pct 62.4 % [facility] Comment: Interpretive Data Percent cell count reference ranges are not reported, since discordance with absolute values may lead to misinterpretation of CBC data. Current Interpretive Data was last revised on 2018. Imm gran pct 1.1 % [facility] Comment: Interpretive Data Percent cell count reference ranges are not reported, since discordance with absolute values may lead to misinterpretation of CBC data. Current Interpretive Data was last revised on 2018. Lymphocyte pct 16.6 % [facility] Comment: Interpretive Data Percent cell count reference ranges are not reported, since discordance with absolute values may lead to misinterpretation of CBC data. Current Interpretive Data was last revised on 2018. Monocyte pct 12.8 % [facility] Comment: Interpretive Data Percent cell count reference ranges are not reported, since discordance with absolute values may lead to misinterpretation of CBC data. Current Interpretive Data was last revised on 2018. Eosinophil pct 6.7 % [facility] Comment: Interpretive Data Percent cell count reference ranges are not reported, since discordance with absolute values may lead to misinterpretation of CBC data. Current Interpretive Data was last revised on 2018. Basophil pct 0.4 % [facility] Comment: Interpretive Data Percent cell count reference ranges are not reported, since discordance with absolute values may lead to misinterpretation of CBC data. Current Interpretive Data was last revised on 2018. Blood 06/05/2025 10:5 8 PM CDT 06/06/2025 12:50 AM CDT us Dianna Root MD LAB BLOOD ORDERABLES Final Resu lt [facility] Department [place] [address] * (ABNORMAL) CBC with auto differential (06/05/2025 10:58 PM CDT) WBC 7.49 3.80 - 9.90 K/cumm Hgb 8.4(L) 13.0 - 17.5 g/dL [facility] Hct 26.6(L) 38.9 - 50.3 % [facility] Plt 233 150 - 400 K/cumm [facility] MPV 10.9 9.1 - 12.3 fL [facility] RBC 2.93(L) 4.30 - 5.80 M/cumm [facility] MCV 90.8 81.3 - 96.4 fL [facility] MCH 28.7 27.1 - 33.3 pg [facility] MCHC 31.6(L) 32.3 - 35.7 g/dL [facility] RDW CV 15.3(H) 11.1 - 14.9 % [facility] RDW SD 51.3(H) 35.7 - 48.1 fL [facility] NRBC abs 0.00 0.00 - 0.01 K/cumm [facility] Blood 06/05/2025 10:5 8 PM CDT 06/06/2025 12:50 AM CDT Dianna Root MD LAB BLOOD ORDERABLES Final Resu lt [facility] Department [place] [address] * (ABNORMAL) Protime-INR (06/05/2025 10:58 PM CDT) Pathologist [facility] PT 18.5(H) 9.7 - 13.0 sec INR 1.69(H) 0.90 - 1.20 [facility] Comment: Interpretive data Oral anticoagulant therapeutic ranges: Venous thromboembolism prophylaxis or treatment: 2.0-3.0 CARDIOLOGY Standard range: 2.0-3.0 High-intensity range: 2.5-3.5 Refer to indication-specific guidelines for appropriate target ranges for prosthetic heart valve replacement. Current interpretive data was last revised on 2019. Blood 06/05/2025 10:5 8 PM CDT 06/06/2025 12:58 AM CDT us Dianna Root MD LAB BLOOD ORDERABLES Final Resu lt [facility] Department [place] [address] * (ABNORMAL) Comprehensive metabolic panel (06/05/2025 10:58 PM CDT) Pathologist [facility] Sodium 138 135 - 145 mmol/L Potassium, pl 4.4 3.3 - 4.9 mmol/L [facility] Chloride 98 97 - 110 mmol/L [facility] CO2 32 22 - 32 mmol/L [facility] Anion gap 8 2 - 15 mmol/L [facility] BUN 22 6 - 25 mg/dL [facility] Creatinine 1.02 0.80 - 1.30 mg/dL [facility] Glucose 107 70 - 199 mg/dL [facility] Comment: Interpretive Data Fasting glucose >/= 126 [...] Current interpretive data was last revised 2022. Calcium 9.0 8.5 - 10.3 mg/dL [facility] Bilirubin, total 0.2 0.1 - 1.2 mg/dL [facility] Protein, pl 6.2(L) 6.5 - 8.5 g/dL [facility] Albumin 2.9(L) 3.5 - 5.0 g/dL [facility] Alk phos 192(H) 40 - 130 Units/L [facility] ALT 20 7 - 55 Units/L [facility] AST 38 10 - 50 Units/L [facility] Blood 06/05/2025 10:5 8 PM CDT 06/06/2025 12:38 AM CDT Dianna Root MD LAB BLOOD ORDERABLES Final Resu lt [facility] Department [place] [address] * Pneumonia PCR Sputum, induced (06/05/2025 4:53 AM CDT) C. pneumoniae DNA Not Detected Not Detected Legionella pneumophila DNA Not Detected Not Detected [facility] M. pneumoniae DNA Not Detected Not Detected [facility] Adenovirus DNA Not Detected Not Detected [facility] Coronavirus (229E, OC43, HKU1, NL63) RNA Not Detected Not Detected [facility] Metapneumovirus RNA Not Detected Not Detected [facility] Rhinovirus/Enterov irus RNA Not Detected Not Detected [facility] Influenza A RNA Not Detected Not Detected [facility] Influenza B RNA Not Detected Not Detected [facility] Parainfluenza virus (1-4) RNA Not Detected Not Detected [facility] RSV RNA Not Detected Not Detected [facility] Sputum, induced 06/05/2025 4 :53 AM CDT 06/05/2025 7:31 AM CDT Narrative [facility] - 06/05/2025 8:59 AM CDT The BioFire Pneumonia Panel is a multiplexed nucleic acid test capable of simultaneous detection and identification of multiple respiratory viruses and bacteria. This panel detects Adenovirus, coronaviruses (Coronavirus HKU1, Coronavirus NL63, Coronavirus 229E, and Coronavirus OC43), Influenza A, Influenza B, Human metapneumovirus, Parainfluenza (1-4), RSV, Rhinovirus/Enterovirus, Chlamydia pneumoniae, Mycoplasma pneumoniae, and Legionella pneumophila. Additional aerobic bacterial targets are reported with the accompanying culture results with the same accession number. Rhinovirus and Enterovirus are genetically similar and cannot be reliably differentiated with this method. Negative adenovirus results should be confirmed by an alternative methodology (i.e. standalone PCR) if the suspicion for adenovirus infection is high. The results of this test must be considered in the clinical context of the patient and should not be used as the sole basis for diagnosis, treatment, or other management decisions. Negative results in the setting of a respiratory illness may be due to infection with pathogens that are not detected by this test. Positive results do not rule out infection/co-infection with other organisms. The BioFire Pneumonia Panel is FDA cleared for lower respiratory tract specimens. The performance characteristics of this assay have been determined by [facility]. Current interpretive data was last revised on 2025. us Keith Alexander MD LAB MICROBIOLOGY - GENERAL ORDERABLES Final Result [facility] Department [place] [address] * (ABNORMAL) Pneumonia PCR with aerobic culture and Gram stain Sputum, induced (06/05/2025 4:53 AM CDT) Direct Specimen Exam Molecular Analysis: 10^6 copies/mL Pseudomonas aeruginosa Correlation of molecular analysis with final culture results is recommended. Direct Specimen Exam Stain: Moderate polymorphonuclear leukocytes seen. Few squamous epithelial cells seen. Few mixed bacterial anahi seen on Gram stain. [facility] Report Final Report: Growth indicates upper respiratory anahi. (.) [facility] Organism GROWTH INDICATES UPPER RESPIRATORY ANAHI. [facility] Sputum, induced 06/05/2025 4 :53 AM CDT 06/05/2025 6:28 AM CDT [facility] - 06/07/2025 1:16 PM CDT When rapid molecular testing results are reported, testing completed using the [employer] Bi[employer]Array Pneumonia Panel. This molecular assay detects: Acinetobacter calcoaceticus-baumannii complex, Enterobacter cloacae complex, Escherichia coli, Haemophilus influenzae, Enterobacter (Klebsiella) aerogenes, Klebsiella oxytoca, Klebsiella pneumoniae group, Moraxella catarrhalis, Proteus spp., Pseudomonas aeruginosa, Serratia marcescens, Staphylococcus aureus, Streptococcus agalactiae, Streptococcus pneumoniae, and Streptococcus pyogenes. These bacteria are detected and reported semi-quantitatively with bins representing approximately 10^4, 10^5, 10^6, or greater than or equal to 10^7 genomic copies of bacterial nucleic acid per mL (copies/mL) of specimen. These quantities are reported to aid in estimating the relative abundance of organism(s) detected within the specimen and to correlate these results with culture results. For Staphylococcus aureus, mecA/C and MREJ genes are evaluated to predict methicillin resistance or susceptibility. For Gram-negative bacteria, the beta-lactamases CTX-M, IMP, KPC, NDM, VIM and OXA-48-like are evaluated and reported if detected. For Gram-negative organisms, the absence of detection of resistance markers does not exclude resistance. Correlation with final culture results and susceptibility testing is recommended. The FilmArray Pneumonia Panel is cleared by the Food and Drug Administration and its performance characteristics have been confirmed by the [facility]. The performance of the FilmArray Pneumonia Panel has not been established for monitoring treatment of infection and bacterial nucleic acids may persist independent of organism viability. Keith Alexander MD LAB MICROBIOLOGY - GENERAL ORDERABLES Final Result [facility] Department [place] [address] * Mycobacterium tuberculosis PCR Sputum, induced (06/05/2025 4:53 AM CDT) Report Final Report: Target not detected Organism TARGET NOT DETECTED [facility] Sputum, induced 06/05/2025 4 :53 AM CDT 06/05/2025 6:28 AM CDT Narrative [facility] - 06/05/2025 1:24 PM CDT 1. Nucleic acid amplification for detection of Mycobacterium tuberculosis complex is performed using the [employer] GeneXpert MTB/RIF assay. This assay has been approved by the [place] Food and Drug administration for detection of M. tuberculosis in sputum samples. The performance characteristics of this test have been verified by the [facility]biology laboratory for sputum samples and lower respiratory tract samples. 2. A negative result does not rule out an infection with Mycobacterium tuberculosis complex. 3. During clinical trials, this assay was found to be 99% sensitive for detection of M. tuberculosis in smear positive samples and 76% sensitive for detection of M. tuberculosis in smear negative samples. Sensitivity is enhanced by testing up to three specimens obtained on separate days. 4. This test should not be used to test samples from patients who have received greater than three days of anti-tuberculous therapy. 5. This assay detects Mycobacterium tuberculosis complex, which includes: M. tuberculosis, M. bovis, M. africanum, M. canettii, M. microti, M. caprae, M. pinnipedi, M. mungi, and M. orygis. 6. All samples will be reflexed to culture-based analysis. 7. This assay has not been evaluated for use with samples from pediatric patients. Current interpretive data was last revised on 2014. Keith Alexander MD LAB MICROBIOLOGY - GENERAL ORDERABLES Final Result Performing Organization Address City/[facility] Co de Phone Number [facility] Department [place] [address] * Infection Prevention MRSA Only (Staphylococcus aureus) Culture Nasal (06/05/2025 4:50 AM CDT) Report Final Report: Negative Nasal 06/05/2025 4:50 AM CDT 06/05/2025 6:40 AM CDT [facility] 06/06/2025 8:37 AM CDT Testing performed by [facility] ([phone]). Keith Alexander MD LAB MICROBIOLOGY - GENERAL ORDERABLES Final Result Performing Organization Address [facility] Co de Phone Number [facility] Department [place] [address] * TERRA ab ql w/rflx to TERRA qn (06/04/2025 10:45 PM CDT) TERRA Negative Comment: Interpretive Data Normal range for TERRA Qualitative Antibody = Negative. 1. TERRA is performed using indirect immunofluorescence against HEp-2 cells 2. TERRA titers are performed on all positive qualitative results. 3. A significantly positive TERRA result is defined as a positive nuclear fluorescence at a titer of 1:80 or greater. 4. 15% of normal people above age 65 have significantly positive TERRA results. 5% or less of normal people age 65 or under have significantly positive TERRA results. Current interpretive data was last revised on 2020. Blood 06/04/2025 10:4 5 PM CDT 06/05/2025 12:39 AM CDT us Keith Alexander MD LAB BLOOD ORDERABLES Final Result Performing Organization Address City/[facility] Co de Phone Number [facility] Department [place] [place] [address] * eGFR (06/04/2025 10:45 PM CDT) eGFR 71 >=60 mL/min/1. 73 m2 Comment: Interpretive Data [...] interpretive data was last reviewed 2021. Blood 06/04/2025 10:4 5 PM CDT 06/05/2025 12:38 AM CDT us Dianna Root MD LAB BLOOD ORDERABLES Final Resu lt Performing Organization Address [facility]/ZIP Co de Phone Number [facility] Department [place] [address] * (ABNORMAL) Differential, auto (06/04/2025 10:45 PM CDT) Neutrophil abs 6.47 1.50 - 6.50 K/cumm Imm gran abs 0.08 0.00 - 0.10 K/cumm [facility] Lymphocyte abs 0.89 0.80 - 3.30 K/cumm [facility] Monocyte abs 1.04(H) 0.20 - 0.80 K/cumm [facility] Eosinophil abs 0.38 0.00 - 0.50 K/cumm [facility] Basophil abs 0.03 0.00 - 0.10 K/cumm [facility] Neutrophil pct 72.8 % [facility] Comment: Interpretive Data Percent cell count reference ranges are not reported, since discordance with absolute values may lead to misinterpretation of CBC data. Current Interpretive Data was last revised on 2018. Imm gran pct 0.9 % [facility] Comment: Interpretive Data Percent cell count reference ranges are not reported, since discordance with absolute values may lead to misinterpretation of CBC data. Current Interpretive Data was last revised on 2018. Lymphocyte pct 10.0 % [facility] Comment: Interpretive Data Percent cell count reference ranges are not reported, since discordance with absolute values may lead to misinterpretation of CBC data. Current Interpretive Data was last revised on 2018. Monocyte pct 11.7 % [facility] Comment: Interpretive Data Percent cell count reference ranges are not reported, since discordance with absolute values may lead to misinterpretation of CBC data. Current Interpretive Data was last revised on 2018. Eosinophil pct 4.3 % [facility] Comment: Interpretive Data Percent cell count reference ranges are not reported, since discordance with absolute values may lead to misinterpretation of CBC data. Current Interpretive Data was last revised on 2018. Basophil pct 0.3 % [facility] Comment: Interpretive Data Percent cell count reference ranges are not reported, since discordance with absolute values may lead to misinterpretation of CBC data. Current Interpretive Data was last revised on 2018. Blood 06/04/2025 10:4 5 PM CDT 06/05/2025 12:39 AM CDT us Dianna Root MD LAB BLOOD ORDERABLES Final Resu lt Performing Organization Address City/[facility]/[place] [address] * (ABNORMAL) Iron profile w/ IBC (06/04/2025 10:45 PM CDT) [facility] Iron 24(L) 50 - 150 mcg/dL TIBC 171(L) 250 - 400 mcg/dL [facility] Transferrin saturation 14(L) 20 - 50 % [facility] Blood 06/04/2025 10:4 5 PM CDT 06/05/2025 12:38 AM CDT us Keith Aelxander MD LAB BLOOD ORDERABLES Final Result Performing Organization Address [facility] [place] [address] * HIV 1/2 Antibody plus p24 Antigen Blood (06/04/2025 10:45 PM CDT) [facility] HIV 1/2 ab + p24 ag Nonreactive Nonreactive Comment:Nonreactive for HIV- 1 antigen and HIV-1/HIV-2 antibodies. No laboratory evidence of HIV infection. If acute HIV infection is suspected, consider testing for HIV-1 RNA. Current interpretive data was last revised on 22. Blood 06/04/2025 10:4 5 PM CDT 06/05/2025 12:39 AM CDT Keith Alexander MD LAB MICROBIOLOGY - GENERAL ORDERABLES Final Result Performing Organization Address [facility] [place] [address] * Anti-Neutrophilic Cytoplasmic Antibody (ANCA) with Reflex to MPO and PR3 Abs (06/04/2025 10:45 PM CDT) [facility] ANCA Negative Blood 06/04/2025 10:4 5 PM CDT 06/05/2025 12:39 AM CDT us Keith Alexander MD LAB BLOOD ORDERABLES Final Result Performing Organization Address [facility] de Phone Number [facility] Department [place] [address] * (ABNORMAL) CBC with auto differential (06/04/2025 10:45 PM CDT) [facility] WBC 8.89 3.80 - 9.90 K/cumm Hgb 9.0(L) 13.0 - 17.5 g/dL [facility] Hct 28.4(L) 38.9 - 50.3 % [facility] Plt 226 150 - 400 K/cumm [facility] MPV 10.9 9.1 - 12.3 fL [facility] RBC 3.14(L) 4.30 - 5.80 M/cumm [facility] MCV 90.4 81.3 - 96.4 fL [facility] MCH 28.7 27.1 - 33.3 pg [facility] MCHC 31.7(L) 32.3 - 35.7 g/dL [facility] RDW CV 15.2(H) 11.1 - 14.9 % [facility] RDW SD 50.3(H) 35.7 - 48.1 fL [facility] NRBC abs 0.00 0.00 - 0.01 K/cumm [facility] Blood 06/04/2025 10:4 5 PM CDT 06/05/2025 12:39 AM CDT us Dianna Root MD LAB BLOOD ORDERABLES Final Resu lt Performing Organization Address [facility]/ZIP Co de Phone Number [facility] [place] [address] * RPR Blood (06/04/2025 10:45 PM CDT) [facility] RPR Nonreactive Nonreactive Blood 06/04/2025 10:4 5 PM CDT 06/05/2025 12:39 AM CDT Keith Alexander MD LAB MICROBIOLOGY - GENERAL ORDERABLES Final Result Performing Organization Address City/[facility] Co de Phone Number [facility] Department [place] [address] * (ABNORMAL) Protime-INR (06/04/2025 10:45 PM CDT) [facility] PT 19.6(H) 9.7 - 13.0 sec INR 1.79(H) 0.90 - 1.20 [facility] Comment: Interpretive data Oral anticoagulant therapeutic ranges: Venous thromboembolism prophylaxis or treatment: 2.0-3.0 CARDIOLOGY Standard range: 2.0-3.0 High-intensity range: 2.5-3.5 Refer to indication-specific guidelines for appropriate target ranges for prosthetic heart valve replacement. Current interpretive data was last revised on 2019. Blood 06/04/2025 10:4 5 PM CDT 06/05/2025 12:45 AM CDT Dianna Root MD LAB BLOOD ORDERABLES Final Resu lt Performing Organization Address [facility] Co de Phone Number [facility] Department [place] [address] * Rheumatoid factor (06/04/2025 10:45 PM CDT) Pathologist [facility] Rheumatoid factor, quant 12.0 0.1 - 15.0 IUnits/mL Blood 06/04/2025 10:4 5 PM CDT 06/05/2025 12:38 AM CDT Result [facility] Keith Alexander MD LAB BLOOD ORDERABLES Final Result Performing Organization Address City/[facility] Co de Phone Number [facility] [place] [address] * (ABNORMAL) Protein electrophoresis with reflex, serum with interpretation (06/04/2025 10:45 PM CDT) [facility] Protein, sr 6.0(L) 6.2 - 8.2 g/dL Albumin 2.5(L) 3.2 - 5.0 g/dL [facility] Alpha-1 globulin 0.7(H) 0.2 - 0.4 g/dL [facility] Alpha-2 globulin 1.2(H) 0.5 - 1.0 g/dL [facility] [place] Beta-1 globulin 0.4 0.3 - 0.6 g/dL [facility] [place] [facility] Beta-2 globulin 0.5 0.2 - 0.6 g/dL [facility] Gamma globulin 0.7 0.5 - 1.7 g/dL [facility] SPEP interp Please see comment [facility] Comment: No apparent monoclonal peak Reviewed and signed by Serenity Wiseman MD, PhD 06/06/2025 Blood 06/04/2025 10:4 5 PM CDT 06/05/2025 12:38 AM CDT us Keith Alexander MD LAB BLOOD [place] [address] * (ABNORMAL) Phosphorus (06/04/2025 10:45 PM CDT) [facility] Phosphorus, pl 2.2(L) 2.3 - 4.5 mg/dL Blood 06/04/2025 10:4 5 PM CDT 06/05/2025 12:38 AM CDT us Dianna Root MD LAB BLOOD ORDERABLES Final Resu lt [facility] [place] [address] * Magnesium (06/04/2025 10:45 PM CDT) Pathologist [facility] Magnesium 1.7 1.4 - 2.5 mg/dL Blood 06/04/2025 10:4 5 PM CDT 06/05/2025 12:38 AM CDT Dianna Root MD LAB BLOOD ORDERABLES Final Resu lt Performing Organization Address City/[facility]/ZIP Co de Phone Number [facility] [place] [place] [address] * Folate (06/04/2025 10:45 PM CDT) [facility] Folic acid 7.0 >=5.0 ng/mL Blood 06/04/2025 10:4 5 PM CDT 06/05/2025 12:38 AM CDT Keith Alexander MD LAB BLOOD ORDERABLES Final Result Performing Organization Address [facility] Co de Phone Number [facility] [place] [place] [address] * Ferritin (06/04/2025 10:45 PM CDT) [facility] Ferritin 269 30 - 400 ng/mL Blood 06/04/2025 10:4 5 PM CDT 06/05/2025 12:38 AM CDT Keith Alexander MD LAB BLOOD ORDERABLES Final Result Performing Organization Address City/[facility] Co de Phone Number [facility] [place] [place] [address] * Vitamin B12 (06/04/2025 10:45 PM CDT) Pathologist [facility] Vitamin B12 491 230 - 1,250 pg/mL Blood 06/04/2025 10:4 5 PM CDT 06/05/2025 12:38 AM CDT us Keith Alexander MD LAB BLOOD ORDERABLES Final Result [facility] Department [place] [address] * (ABNORMAL) Comprehensive metabolic panel (06/04/2025 10:45 PM CDT) Sodium 138 135 - 145 mmol/L Potassium, pl 4.7 3.3 - 4.9 mmol/L [facility] Chloride 100 97 - 110 mmol/L [facility] CO2 31 22 - 32 mmol/L [facility] Anion gap 7 2 - 15 mmol/L [facility] BUN 21 6 - 25 mg/dL [facility] Creatinine 1.05 0.80 - 1.30 mg/dL [facility] Glucose 107 70 - 199 mg/dL [facility] Comment: Interpretive Data Fasting glucose >/= 126 [...] Current interpretive data was last revised 2022. Calcium 9.3 8.5 - 10.3 mg/dL [facility] Bilirubin, total 0.2 0.1 - 1.2 mg/dL [facility] Protein, pl 6.7 6.5 - 8.5 g/dL [facility] Albumin 3.1(L) 3.5 - 5.0 g/dL [facility] Alk phos 222(H) 40 - 130 Units/L [facility] ALT 23 7 - 55 Units/L [facility] AST 44 10 - 50 Units/L [facility] Blood 06/04/2025 10:4 5 PM CDT 06/05/2025 12:38 AM CDT Dianna Root MD LAB BLOOD ORDERABLES Final Resu lt Performing Organization Address [facility] Co de Phone Number [place] [address] * Histoplasma Antigen Urine (06/04/2025 6:49 PM CDT) Histo Ag Ur result None Detected None Detected Histo Ag Ur interp Negative Negative [facility] Comment: Result Interpretation: Reference interval: None Detected Results reported as ng/mL in 0.20 - 20.00 ng/mL range Results above 20.00 ng/mL are reported as 'Positive, Above the Limit of Quantification' Testing Performed by: [facility], [address] [place] [address] [place] [id number]. This test was developed and its performance characteristics determined by [facility]. It has not been cleared or approved by the FDA; however, FDA clearance or approval is not currently required for clinical use. The results are not intended to be used as the sole means for clinical diagnosis or patient management decisions. Interpretative data updated 01/21/2021 Urine 06/04/2025 6:49 PM CDT 06/04/2025 10:05 PM CDT Keith Alexander MD LAB MICROBIOLOGY - GENERAL ORDERABLES Final Result Performing Organization Address [facility] Co de Phone Number [facility] [place] [address] * CT Chest High Resolution WO Contrast (06/04/2025 4:31 PM CDT) Anatomical Region Laterality Modality Chest N/A Computed Tomogra phy 06/04/2025 6:36 PM CDT Impressions 06/05/2025 6:48 AM CDT 1. New consolidations within the dependent portions of the upper lobes which is suspicious for pneumonia likely secondary to aspiration given the dependent distribution. This is superimposed on areas of chronic scarring, round atelectasis, bronchial wall thickening predominantly within lower lobes. Overall findings are consistent with acute on chronic aspiration. 2. 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 There is unchanged right middle and bilateral lower lobe adhesive atelectasis. 3. No finding of active mycobacterial infection. Dictated by: Miguel Vaughn MD The radiology attending physician has personally reviewed this study, and had reviewed and/or edited this written report and agrees with it. Electronically signed by: Tomy August M.D. Narrative 06/05/2025 6:48 AM CDT EXAMINATION: CT CHEST HIGH RESOLUTION WO CONTRAST HISTORY: Recurrent pneumonia, history of mycobacterium avium complex infection TECHNIQUE: MDCT images of the chest were acquired with lung and soft tissue algorithms during inspiration. High-resolution 1 mm images were reconstructed at 10 mm intervals throughout the thorax. Additional 1 mm images were obtained at 10 mm intervals during expiration. COMPARISON: CT chest 04/26/2025 FINDINGS: No axillary or supraclavicular lymphadenopathy. Again seen are multiple enlarged paratracheal, subcarinal, and aortopulmonary window lymph nodes which are likely reactive. Heart size unchanged. Multivessel coronary artery calcifications. Atherosclerotic calcifications of the thoracic aorta. Small volume pericardial fluid. There is debris within the trachea. Saber-sheath trachea in keeping with known chronic obstructive pulmonary disease. Again seen is bilateral lower lobe predominant bronchial wall thickening. There is a new area of peripheral consolidation within the left upper lobe (series 4, image 66). Interval decrease in right lower lobe consolidation. Similar-appearing left lower lobe consolidation. New right upper lobe peripheral consolidation. Biapical predominant centrilobular emphysema. There are scattered areas of air trapping within the bilateral lung apices and bilateral lower lobes. No pneumothorax bilaterally. Unchanged right pleural effusion with suggestion of pleural thickening, however evaluation is limited due to lack of intravenous contrast. No left-sided pleural effusion. Again seen are scattered too small to characterize hypoattenuating hepatic lesions. Unchanged splenomegaly. Calcified splenic granulomata. No acute findings within the imaged upper abdomen. No suspicious osseous lesion. Procedure Note Tomy August MD - 06/05/2025 EXAMINATION: CT CHEST HIGH RESOLUTION WO CONTRAST HISTORY: Recurrent pneumonia, history of mycobacterium avium complex infection TECHNIQUE: MDCT images of the chest were acquired with lung and soft tissue algorithms during inspiration. High-resolution 1 mm images were reconstructed at 10 mm intervals throughout the thorax. Additional 1 mm images were obtained at 10 mm intervals during expiration. COMPARISON: CT chest 04/26/2025 FINDINGS: No axillary or supraclavicular lymphadenopathy. Again seen are multiple enlarged paratracheal, subcarinal, and aortopulmonary window lymph nodes which are likely reactive. Heart size unchanged. Multivessel coronary artery calcifications. Atherosclerotic calcifications of the thoracic aorta. Small volume pericardial fluid. There is debris within the trachea. Saber-sheath trachea in keeping with known chronic obstructive pulmonary disease. Again seen is bilateral lower lobe predominant bronchial wall thickening. There is a new area of peripheral consolidation within the left upper lobe (series 4, image 66). Interval decrease in right lower lobe consolidation. Similar-appearing left lower lobe consolidation. New right upper lobe peripheral consolidation. Biapical predominant centrilobular emphysema. There are scattered areas of air trapping within the bilateral lung apices and bilateral lower lobes. No pneumothorax bilaterally. Unchanged right pleural effusion with suggestion of pleural thickening, however evaluation is limited due to lack of intravenous contrast. No left-sided pleural effusion. Again seen are scattered too small to characterize hypoattenuating hepatic lesions. Unchanged splenomegaly. Calcified splenic granulomata. No acute findings within the imaged upper abdomen. No suspicious osseous lesion. IMPRESSION: 1. New consolidations within the dependent portions of the upper lobes which is suspicious for pneumonia likely secondary to aspiration given the dependent distribution. This is superimposed on areas of chronic scarring, round atelectasis, bronchial wall thickening predominantly within lower lobes. Overall findings are consistent with acute on chronic aspiration. 2. 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 There is unchanged right middle and bilateral lower lobe adhesive atelectasis. 3. No finding of active mycobacterial infection. Dictated by: Miguel Vaughn MD The radiology attending physician has personally reviewed this study, and had reviewed and/or edited this written report and agrees with it. Electronically signed by: Tomy August M.D. Keith Alexander MD IMG CT PROCEDURES Final Re sult * Infection Prevention MRSA Only (Staphylococcus aureus) Culture Nasal (06/04/2025 3:04 PM CDT) Report Final Report: Negative Nasal 06/04/2025 3:04 PM CDT 06/04/2025 3:19 PM CDT Narrative ANGELLA BECK - 06/05/2025 4:35 PM CDT Testing performed by [facility] ([phone]). Keith Alexander MD LAB MICROBIOLOGY - GENERAL ORDERABLES Final Result Performing Organization Address City/[facility] Co de Phone Number [facility] [place] [address] * Coccidioides antibody screen w/reflex Blood (06/04/2025 10:50 AM CDT) [facility] Coccidioides ab screen, ser Reactive Negative [facility] Comment: Confirmatory testing by complement fixation and immunodiffusion has been ordered. ADDITIONAL INFORMATION This test has been modified from the retail analytics manager's instructions. Its performance characteristics were determined by [facility] in a manner consistent with CLIA requirements. This test has not been cleared or approved by the U.S. Food and Drug Administration. Test Performed by: [facility] [place] [address] Perianesthesia Nurse: Angeli Harper Ph.D.; CLIA# [id number] Blood 06/04/2025 10:5 0 AM CDT 06/04/2025 12:31 PM CDT Keith Alexander MD LAB MICROBIOLOGY - GENERAL ORDERABLES Final Result Performing Organization Address City/[facility]/ZIP Co de Phone Number [facility] [place] [address] [facility] * Histoplasma Antibody Blood (06/04/2025 10:50 AM CDT) Histoplasma Ab, yeast CF Negative Negative [facility] Histoplasma Ab, Immunodiffusion Negative Negative [facility] Comment: A negative complement fixation and immunodiffusion (CF/ID) result does not exclude the diagnosis of histoplasmosis. Repeat testing by CF/ID in 1-2 weeks if clinically indicated. Test Performed by: [place] [address] Perianesthesia Nurse: Angeli Harper Ph.D.; CLIA# [id number] Blood 06/04/2025 10:5 0 AM CDT 06/04/2025 1:57 PM CDT Keith Alexander MD LAB MICROBIOLOGY - GENERAL ORDERABLES Final Result Performing Organization Address [facility] Co de Phone Number [facility] [place] [address] [facility] * Blastomyces antibody, EIA, serum Blood (06/04/2025 10:50 AM CDT) Blastomyces Antibody Negative Negative [facility] Comment: A single negative result does not exclude the diagnosis of blastomycosis. Repeat testing on a new sample in 7-14 days if clinically indicated. Test Performed by: [place] [address] Perianesthesia Nurse: Angeli Harper Ph.D.; CLIA# [id number] Blood 06/04/2025 10:5 0 AM CDT 06/04/2025 1:57 PM CDT Keith Alexander MD LAB MICROBIOLOGY - GENERAL ORDERABLES Final Result [facility] [place] [address] [facility] * Coccidioides antibodies (06/04/2025 10:50 AM CDT) Coccidioides ab comp fix Negative Negative [facility] Coccidioides IgG ImmDiff Negative Negative [facility] Coccidioides IgM ImmDiff Negative Negative [facility] Comment: The EIA may be reactive prior to complement fixation and immunodiffusion (CompF/ImmDiff), or may be falsely-reactive. Repeat testing by CompF/ImmDiff in 2-3 weeks if clinically indicated. Test Performed by: [facility] [address] [place] [address] Perianesthesia Nurse: Angeli Harper Ph.D.; CLIA# [id number] Blood 06/04/2025 10:5 0 AM CDT 06/04/2025 12:31 PM CDT Keith Alexander MD LAB BLOOD ORDERABLES Final Result Performing Organization Address [facility] Co de Phone Number [facility] Department [place] [address] [facility] * Cryptococcal Antigen, Serum Blood (06/04/2025 10:50 AM CDT) [facility] Cryptococcus ag, Serum Negative Negative Comment: The cryptococcal antigen test was performed using the IMMY CrAg Lateral Flow Assay. This assay is FDA cleared for serum and CSF specimens and for the detection of Cryptococcus neoformans and Cryptococcus gattii. If the result is positive, the specimen will be titered and reported from less than 1:5 to greater than or equal to 1:2560. This assay does not distinguish between C. neoformans and C. gattii. Testing hemolyzed serum samples may lead to false negatives. Current interpretive data last revised 2019. Blood 06/04/2025 10:5 0 AM CDT 06/04/2025 12:43 PM CDT Keith Alexander MD LAB MICROBIOLOGY - GENERAL ORDERABLES Final Result Performing Organization Address City/[facility] Co de Phone Number [facility] Department [place] [place] [address] * Aspergillus galactomannan antigen Blood (06/04/2025 10:50 AM CDT) Aspergillus galactomannan Ag <0.500 <0.5 Index [facility] Comment: ADDITIONAL INFORMATION This is a qualitative test and the resulted index value is not indicative of disease severity. Serial testing is recommended for patients at high risk for invasive aspergillosis. This assay was performed using the FDA-cleared [employer] Platelia Aspergillus Galactomannan EIA. Test Performed by: [facility] [address] [place] [address] Perianesthesia Nurse: Angeli Harper Ph.D.; CLIA# [id number] Blood 06/04/2025 10:5 0 AM CDT 06/04/2025 12:42 PM CDT Keith Alexander MD LAB MICROBIOLOGY - GENERAL ORDERABLES Final Result Performing Organization Address City/[facility] de Phone Number [facility] Department [place] [address] [facility] * (ABNORMAL) Blood gas, venous (06/04/2025 10:50 AM CDT) pH, Venous 7.37 7.32 - 7.43 PCO2, Venous 55(H) 40 - 50 mmHg [facility] PO2, Venous 36 mmHg [facility] Comment: Interpretive Data No Reference Range Established Current Interpretive Data was last revised on 2018. HCO3 Venous, Calculated 33(H) 20 - 30 mmol/L [facility] BE, venous 7 mmol/L [facility] Comment: Interpretive Data No Reference Range Established Current Interpretive Data was last revised on 2018. Blood 06/04/2025 10:5 0 AM CDT 06/04/2025 12:25 PM CDT Keith Alexander MD LAB BLOOD ORDERABLES Final Result Performing Organization Address City/[facility] Co de Phone Number [facility] Department [place] [address] * XR Chest 1 View (06/04/2025 6:30 AM CDT) Anatomical Region Laterality Modality Body, Chest N/A Digital Radiogra phy 06/04/2025 1:51 PM CDT Impressions 06/04/2025 1:51 PM CDT Comparison is made to prior from 04/26/2025. There are multifocal airspace opacities in the right mid and lower lung and left lung base. This likely represents multifocal pneumonia. Small right pleural effusion. Heart size normal. No pneumothorax. Electronically signed by: Salas De La Torre M.D. Narrative 06/04/2025 1:51 PM CDT EXAMINATION: 1 view chest radiograph Procedure Note Salas De La Torre MD - 06/04/2025 EXAMINATION: 1 view chest radiograph IMPRESSION: Comparison is made to prior from 04/26/2025. There are multifocal airspace opacities in the right mid and lower lung and left lung base. This likely represents multifocal pneumonia. Small right pleural effusion. Heart size normal. No pneumothorax. Electronically signed by: Salas De La Torre M.D. Dianna Root MD IMG XR PROCEDURES Final Result * eGFR (06/04/2025 4:35 AM CDT) eGFR 61 >=60 mL/min/1. 73 m2 Comment: Interpretive Data [...] Inclusion of Race in Diagnosing Kidney Disease, JOAOSAlfonso 2020). The CKD-EPI equation should not be used for patients with unstable renal function and has not been validated in children and those over 70. Current interpretive data was last reviewed 2021. Blood 06/04/2025 4:35 AM CDT 06/04/2025 5:01 AM CDT Dianna Root MD LAB BLOOD ORDERABLES Final Resu lt [facility] Department [place] [address] * (ABNORMAL) Differential, auto (06/04/2025 4:35 AM CDT) Neutrophil abs 6.28 1.50 - 6.50 K/cumm Imm gran abs 0.07 0.00 - 0.10 K/cumm [facility] Lymphocyte abs 0.88 0.80 - 3.30 K/cumm [facility] Monocyte abs 1.13(H) 0.20 - 0.80 K/cumm [facility] Eosinophil abs 0.47 0.00 - 0.50 K/cumm [facility] Basophil abs 0.02 0.00 - 0.10 K/cumm [facility] Neutrophil pct 71.0 % [facility] Comment: Interpretive Data Percent cell count reference ranges are not reported, since discordance with absolute values may lead to misinterpretation of CBC data. Current Interpretive Data was last revised on 2018. Imm gran pct 0.8 % [facility] Comment: Interpretive Data Percent cell count reference ranges are not reported, since discordance with absolute values may lead to misinterpretation of CBC data. Current Interpretive Data was last revised on 2018. Lymphocyte pct 9.9 % [facility] Comment: Interpretive Data Percent cell count reference ranges are not reported, since discordance with absolute values may lead to misinterpretation of CBC data. Current Interpretive Data was last revised on 2018. Monocyte pct 12.8 % [facility] Comment: Interpretive Data Percent cell count reference ranges are not reported, since discordance with absolute values may lead to misinterpretation of CBC data. Current Interpretive Data was last revised on 2018. Eosinophil pct 5.3 % [facility] [place] Comment: Interpretive Data Percent cell count reference ranges are not reported, since discordance with absolute values may lead to misinterpretation of CBC data. Current Interpretive Data was last revised on 2018. Basophil pct 0.2 % [facility] Comment: Interpretive Data Percent cell count reference ranges are not reported, since discordance with absolute values may lead to misinterpretation of CBC data. Current Interpretive Data was last revised on 2018. Blood 06/04/2025 4:35 AM CDT 06/04/2025 5:02 AM CDT Dianna Root MD LAB BLOOD ORDERABLES Final Resu lt [facility] Department [place] [address] * (ABNORMAL) Pro B-type natriuretic peptide (06/04/2025 4:35 AM CDT) NT-proBNP 486(H) <=450 pg/mL Comment: Interpretive Comments: A. Dyspnea in Acute Care Setting All Ages: < 300 pg/ml, acute heart failure unlikely. < 50 yrs: 300 - 450 pg/ml, further investigation warranted. > 450 pg/ml, acute heart failure likely. 50 - 74 yrs: 300 - 900 pg/ml, further investigation warranted. > 900 pg/ml, acute heart failure likely . > or = 75 yrs: 450 - 1800 pg/ml, further investigation warranted. > 1800 pg/ml, acute heart failure likely. B. Non-acute Setting < 75 yrs < 125 pg/ml, rules out heart failure. > or = 125 pg/ml, further investigation warranted. > or = 75 yrs < 450 pg/ml, rules out heart failure. > or = 450 pg/ml, further investigation warranted. - Knowledge of each individual patient's NT-proBNP range may be more useful than using similar cut-points for every patient. Please note that marked elevations in NT-proBNP levels may be observed in state other than Left Ventricular Congestive Failure, including: acute coronary syndromes, right heart strain/failure (including pulmonary embolism and cor pulmonale), critical illness, renal failure, as well as advanced age. - References: 1. Milady SOTO et.al. Eur Heart J. 2006:27:330-337. 2. Ousmane SILVER, Arianna QUIJANO. J. AM Eleanor Cardiol: Cardiovasc Imag. 2009;2: 216- 225. Interpretive Data Last Revised Date: 2018. Blood 06/04/2025 4:35 AM CDT 06/04/2025 5:01 AM CDT us Dianna Root MD LAB BLOOD ORDERABLES Final Resu lt [facility] Department [place] [address] * (ABNORMAL) CBC with auto differential (06/04/2025 4:35 AM CDT) Pathologist [facility] WBC 8.85 3.80 - 9.90 K/cumm Hgb 8.3(L) 13.0 - 17.5 g/dL [facility] Hct 26.7(L) 38.9 - 50.3 % [facility] Plt 219 150 - 400 K/cumm [facility] MPV 10.3 9.1 - 12.3 fL [facility] RBC 2.94(L) 4.30 - 5.80 M/cumm [facility] MCV 90.8 81.3 - 96.4 fL [facility] MCH 28.2 27.1 - 33.3 pg [facility] MCHC 31.1(L) 32.3 - 35.7 g/dL [facility] RDW CV 15.3(H) 11.1 - 14.9 % [facility] RDW SD 51.0(H) 35.7 - 48.1 fL [facility] NRBC abs 0.00 0.00 - 0.01 K/cumm [facility] Blood 06/04/2025 4:35 AM CDT 06/04/2025 5:02 AM CDT Dianna Root MD LAB BLOOD ORDERABLES Final Resu lt Performing Organization Address City/[facility] Co de Phone Number [facility] Department [place] [address] * (ABNORMAL) Protime-INR (06/04/2025 4:35 AM CDT) Pathologist [facility] PT 20.1(H) 9.7 - 13.0 sec INR 1.84(H) 0.90 - 1.20 [facility] Comment: Interpretive data Oral anticoagulant therapeutic ranges: Venous thromboembolism prophylaxis or treatment: 2.0-3.0 CARDIOLOGY Standard range: 2.0-3.0 High-intensity range: 2.5-3.5 Refer to indication-specific guidelines for appropriate target ranges for prosthetic heart valve replacement. Current interpretive data was last revised on 2019. Blood 06/04/2025 4:35 AM CDT 06/04/2025 5:06 AM CDT Dianna Root MD LAB BLOOD ORDERABLES Final Resu lt Performing Organization Address [facility] Co de Phone Number [facility] [place] [address] * Phosphorus (06/04/2025 4:35 AM CDT) Pathologist [facility] Phosphorus, pl 2.6 2.3 - 4.5 mg/dL Blood 06/04/2025 4:35 AM CDT 06/04/2025 5:01 AM CDT Dianna Root MD LAB BLOOD ORDERABLES Final Resu lt Performing Organization Address [facility] Co de Phone Number [facility] [place] [address] * Magnesium (06/04/2025 4:35 AM CDT) Magnesium 1.8 1.4 - 2.5 mg/dL Blood 06/04/2025 4:35 AM CDT 06/04/2025 5:01 AM CDT Dianna Root MD LAB BLOOD ORDERABLES Final Resu lt [facility] Department [place] [address] * (ABNORMAL) Comprehensive metabolic panel (06/04/2025 4:35 AM CDT) Sodium 135 135 - 145 mmol/L Potassium, pl 4.4 3.3 - 4.9 mmol/L [facility] Chloride 99 97 - 110 mmol/L [facility] CO2 29 22 - 32 mmol/L [facility] Anion gap 7 2 - 15 mmol/L [facility] BUN 23 6 - 25 mg/dL [facility] Creatinine 1.19 0.80 - 1.30 mg/dL [facility] Glucose 109 70 - 199 mg/dL [facility] Comment: Interpretive Data Fasting glucose >/= 126 [...] classification and Diagnosis of Diabetes Diabetes Care 202; 46: S19-S40. Current interpretive data was last revised 2022. Calcium 9.3 8.5 - 10.3 mg/dL [facility] Bilirubin, total 0.3 0.1 - 1.2 mg/dL [facility] Protein, pl 6.6 6.5 - 8.5 g/dL [facility] Albumin 2.9(L) 3.5 - 5.0 g/dL [facility] Alk phos 228(H) 40 - 130 Units/L [facility] ALT 20 7 - 55 Units/L [facility] AST 42 10 - 50 Units/L [facility] Blood 06/04/2025 4:35 AM CDT 06/04/2025 5:01 AM CDT us Dianna Root MD LAB BLOOD ORDERABLES Final Resu lt Performing Organization Address [facility] Co de Phone Number [facility] [place] [address] * Legionella antigen Urine (06/04/2025 3:22 AM CDT) Legionella Ag Negative Negative Comment: Interpretive Data This test detects only Legionella pneumophila serogroup 1 antigen. Testing performed by [facility] ([phone]). Current interpretive data was last revised on 2020. Urine 06/04/2025 3:22 AM CDT 06/04/2025 5:30 AM CDT us Dianna Root MD LAB MICROBIOLOGY - GENERAL ORDE RABLES Final Result Performing Organization Address [facility] Co de Phone Number [facility] [place] [address] * ECG 12 lead (06/04/2025 3:21 AM CDT) Ventricular Rate EKG/Min 74 BPM [facility] Atrial Rate 74 BPM [facility] ME-Interval (MSEC) 196 ms [facility] QRS-Interval (MSEC) 114 ms [facility] QT-Interval (MSEC) 406 ms [facility] QTc 450 ms [facility] P [place] 34 degrees [facility] R [place] -19 degrees [facility] T [place] 16 degrees [facility] Diagnosis Normal sinus rhythm Incomplete right bundle branch block Borderline ECG No previous ECGs available Confirmed by SERENITY ARCHULETA M.D ([id number]) on 06/05/2025 8:59:03 AM [facility] 06/04/2025 3:21 AM CDT 06/05/2025 8:59 AM CDT Dianna oRot MD ECG ORDERABLES Final Result [facility] * Respiratory pathogen panel Nasopharyngeal (06/04/2025 2:58 AM CDT) Influenza A RNA Not Detected Not Detected Influenza B RNA Not Detected Not Detected [facility] RSV RNA Not Detected Not Detected [facility] COVID-19 RNA Not Detected Not Detected [facility] Coronavirus 229E RNA Not Detected Not Detected [facility] Coronavirus HKU1 RNA Not Detected Not Detected [facility] Coronavirus NL63 RNA Not Detected Not Detected [facility] Coronavirus OC43 RNA Not Detected Not Detected [facility] Adenovirus DNA Not Detected Not Detected [facility] Metapneumovirus RNA Not Detected Not Detected [facility] Rhinovirus/Enterov irus RNA Not Detected Not Detected [facility] Parainfluenza 1 RNA Not Detected Not Detected [facility] Parainfluenza 2 RNA Not Detected Not Detected [facility] Parainfluenza 3 RNA Not Detected Not Detected [facility] Parainfluenza 4 RNA Not Detected Not Detected [facility] B. pertussis DNA Not Detected Not Detected [facility] B. parapertussis DNA Not Detected Not Detected [facility] C. pneumoniae DNA Not Detected Not Detected [facility] M. pneumoniae DNA Not Detected Not Detected [facility] Nasopharyngeal 06/04/2025 2: 58 AM CDT 06/04/2025 3:29 AM CDT Narrative [facility] - 06/04/2025 4:44 AM CDT Is the Patient experiencing symptoms consistent with COVID?->No Surveillance testing for transplant patient?->No Interpretive Data The [employer] FilmArray Respiratory Panel (RP2.1) assay is a multiplexed real-time PCR based nucleic acid test capable of simultaneous qualitative detection and identification of multiple respiratory viral and bacterial nucleic acids, including SARS Coronavirus 2 (the causative agent of COVID-19). The following bacteria, viruses and virus subtypes can be identified using the FilmArray RP2.1 assay: Bordetella pertussis, Bordetella parapertussis, Chlamydia pneumoniae, Mycoplasma pneumoniae, Adenovirus, SARS Coronavirus 2, seasonal coronaviruses (Coronavirus HKU1, Coronavirus NL63, Coronavirus 229E, and Coronavirus OC43), Influenza A, Influenza A subtype H1, Influenza A subtype H3, Influenza A subtype 2009 H1, Influenza B, Metapneumovirus, Parainfluenza 1, Parainfluenza 2, Parainfluenza 3, Parainfluenza 4, RSV, Rhinovirus/Enterovirus. Due to the genetic similarity between human Rhinovirus and Enterovirus, the FilmArray RP2.1 assay cannot reliably differentiate them. Coronavirus OC43 may cross-react with some isolates of Coronavirus HKU1. A dual positive result may be due to cross-reactivity or may indicate a co- infection. The detection and identification of specific viral and bacterial nucleic acids from individuals exhibiting signs and symptoms of a respiratory infection aids in the diagnosis of respiratory infection if used in conjunction with other clinical and epidemiological information. The results of this test should not be used as the sole basis for diagnosis, treatment, or other management decisions. Negative results in the setting of a respiratory illness may be due to infection with pathogens that are not detected by this test. Positive results do not rule out infection/co-infection with other organisms. The agent(s) detected by the FilmArray RP2.1 may not be the definite cause of disease. Additional testing (lab, imaging, etc.) may be necessary when evaluating a patient with possible respiratory tract infection. The FilmArray RP2.1 assay has FDA clearance for testing of STEAMER TENDER swabs. The performance of additional specimen types has been assessed by the performing laboratory. The performance characteristics of this assay have been determined by [facility]. Current interpretive data was last revised on 22. Dianna Root MD LAB MICROBIOLOGY - GENERAL TONY LIN Final Result [facility] Department [place] [address] * MRSA Only (Staphylococcus aureus) Culture Nasal (06/04/2025 2:53 AM CDT) Report Final Report: Negative Nasal 06/04/2025 2:53 AM CDT 06/04/2025 3:29 AM CDT Narrative [facility] - 06/05/2025 6:58 AM CDT Testing performed by [facility] ([phone]). Dianna Root MD LAB MICROBIOLOGY - GENERAL TONY LIN Final Result Performing Organization Address [facility] Co de Phone Number [facility] Department [place] [address] * Glucose, random (Outreach) (05/02/2025 10:25 AM [...] NP LAB BLOOD ORDERABLES F inal Result Performing Organization Address [facility] Co de Phone Number [facility] Department [place] [address] * (ABNORMAL) eGFR (05/02/2025 10:25 AM CDT) [...] NP LAB BLOOD ORDERABLES F inal Result [facility] Department [place] [address] * (ABNORMAL) Differential, auto (05/02/2025 10:25 AM CDT) Pathologist [facility] Neutrophil abs 6.97(H) 1.50 - 6.50 K/cumm Imm gran abs 0.13(H) 0.00 - 0.10 K/cumm [facility] Lymphocyte abs 1.24 0.80 - 3.30 K/cumm [facility] Monocyte abs 0.99(H) 0.20 - 0.80 K/cumm [facility] Eosinophil abs 0.52(H) 0.00 - 0.50 K/cumm [facility] Basophil abs 0.04 0.00 - 0.10 K/cumm [facility] Neutrophil pct 70.5 % [facility] Comment: Interpretive Data Percent cell count reference ranges are not reported, since discordance with absolute values may lead to misinterpretation of CBC data. Current Interpretive Data was last revised on 2018. Imm gran pct 1.3 % [facility] Comment: Interpretive Data Percent cell count reference ranges are not reported, since discordance with absolute values may lead to misinterpretation of CBC data. Current Interpretive Data was last revised on 2018. Lymphocyte pct 12.5 % [facility] Comment: Interpretive Data Percent cell count reference ranges are not reported, since discordance with absolute values may lead to misinterpretation of CBC data. Current Interpretive Data was last revised on 2018. Monocyte pct 10.0 % [facility] Comment: Interpretive Data Percent cell count reference ranges are not reported, since discordance with absolute values may lead to misinterpretation of CBC data. Current Interpretive Data was last revised on 2018. Eosinophil pct 5.3 % [facility] Comment: Interpretive Data Percent cell count reference ranges are not reported, since discordance with absolute values may lead to misinterpretation of CBC data. Current Interpretive Data was last revised on 2018. Basophil pct 0.4 % [facility] Comment: Interpretive Data Percent cell count reference ranges are not reported, since discordance with absolute values may lead to misinterpretation of CBC data. Current Interpretive Data was last revised on 2018. Blood 05/02/2025 10:2 5 AM CDT 05/02/2025 2:09 PM CDT Gladys Larson NP LAB BLOOD ORDERABLES F inal Result [facility] Department [place] [address] * (ABNORMAL) Comprehensive metabolic panel, without glucose (Outreach) (05/02/2025 10:25 AM CDT) Sodium 134(L) 135 - 145 mmol/L Potassium, pl 5.8(H) 3.3 - 4.9 mmol/L [facility] Chloride 100 97 - 110 mmol/L [facility] CO2 27 22 - 32 mmol/L [facility] Anion gap 7 2 - 15 mmol/L [facility] BUN 21 6 - 25 mg/dL [facility] Creatinine 1.90(H) 0.80 - 1.30 mg/dL [facility] Calcium 9.6 8.5 - 10.3 mg/dL [facility] Protein, pl 7.5 6.5 - 8.5 g/dL [facility] Albumin 3.8 3.5 - 5.0 g/dL [facility] Bilirubin, total 0.2 0.1 - 1.2 mg/dL [facility] Alk phos 227(H) 40 - 130 Units/L [facility] AST 25 10 - 50 Units/L [facility] ALT 19 7 - 55 Units/L [facility] Blood 05/02/2025 10:2 5 AM CDT 05/02/2025 2:09 PM CDT us Gladys Larson NP LAB BLOOD ORDERABLES F inal Result [facility] Department [place] [address] * (ABNORMAL) CBC with auto differential (05/02/2025 10:25 AM CDT) [facility] WBC 9.89 3.80 - 9.90 K/cumm Hgb 10.0(L) 13.0 - 17.5 g/dL [facility] Hct 32.2(L) 38.9 - 50.3 % [facility] Plt 322 150 - 400 K/cumm [facility] MPV 11.1 9.1 - 12.3 fL [facility] RBC 3.41(L) 4.30 - 5.80 M/cumm [facility] MCV 94.4 81.3 - 96.4 fL [facility] MCH 29.3 27.1 - 33.3 pg [facility] MCHC 31.1(L) 32.3 - 35.7 g/dL [facility] RDW CV 14.3 11.1 - 14.9 % [facility] RDW SD 48.4(H) 35.7 - 48.1 fL [facility] NRBC abs 0.00 0.00 - 0.01 K/cumm [facility] Blood 05/02/2025 10:2 5 AM CDT 05/02/2025 2:09 PM CDT us Gladys Larson NP LAB BLOOD ORDERABLES F inal Result [facility] Department [place] [address] * CT Body Outside Consult (05/02/2025 10:24 [...] images may or may not represent the [place] source data set and thus may contain changes that may lower the accuracy of this second-opinion interpretation. Electronically signed by: Adele Shipman M.D. Narrative 05/02/2025 10:38 AM CDT EXAMINATION: RADIOLOGY CONSULTATION ON OUTSIDE IMAGING STUDY STUDY INITIALLY PERFORMED: 04/26/2025 at [facility]. TYPE OF STUDY: Multiple CT images of [...] IMAGING STUDY STUDY INITIALLY PERFORMED: 04/26/2025 at [facility]. TYPE OF STUDY: Multiple CT images of [...] images may or may not represent the [place] source data set and thus may contain changes that may lower the accuracy of this second-opinion interpretation. Electronically signed by: Adele Shipman M.D. Lukas Adams MD IM CT PROCEDURES Final Resu lt * CT Body Outside Reference (05/02/2025 10:17 AM CDT) Impressions [facility] - 05/02/2025 10:17 AM CDT These images are for Reference purposes only and have not been reviewed by [facility] Radiology. There will be no report generated by a [facility] Radiologist. Narrative [facility] - 05/02/2025 10:17 AM CDT EXAMINATION: Images For Reference Purposes Only us Lukas Adams MD IM CT PROCEDURES Final Resu lt [facility] from Last 3 Months Additional Health Concerns Active Problems Noted Date Diagnosed Date Initial Follow-Up Appointment 06/08/2025 Infection Onset Date Last Indicated Tuberculosis (rule out) 06/04/2025 06/04/20 25 Insurance [facility] ADVANTAGE [facility] Address: [address] [address] [place] [address] [facility] Address: [address] [address] [place] [address] [facility] Address: [address] [address] [place] [address] Advance Directives For more information, please contact: [phone] * Full Code (Latest Code Status on File) Date Activated Date Inactivated Comments 06/04/2025 2:17 AM 06/07/2025 7:14 PM 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
--- OUTSIDE RECORDS SUMMARY | 2025-06-15 13:54 | XMS_ITS | Encounter Summary ---
Author Organization [facility] Healthcare Address [address] [place] [address] Care Team Providers Care Swim Instructor Name Role Phone Naveed Mcintosh MD Primary Care Prov ider Salas Gottlieb MD Unavailable [phone] Yarelis Rachel NEUROLOGY MANAGER Unavailable [phone] Reason for Visit * Reason Comments Chart Review Planned call today, pt being directed to ED by staff. OCM will remain available. Encounter Details Date Type Department Care Team (Late st Contact Info) Description 06/15/2025 SHOP/CHAP Subsequent Outreach [facility]NAGEMENT [address] [place] [id number] Yarelis Rachel LCSW [address] [facility] ([facility] Mailstop [phone] [place] [address] Social History Tobacco Use Types Packs/Day Years Used Date Smoking Tobacco: Former Cigarettes 1.5 65 0 03/12/1957 - 09/19/2018 Smokeless Tobacco: Never Comments:Quit 08/2019 Alcohol Use Standard Drinks/Week Comments Not Currently 0 (1 standard drink = 0.6 oz pur e alcohol) [facility] Utilities Answer Date Recorded In the past 12 months has th e electric, gas, oil, or water company threatened to shut off services in your [...] 06/08/2025 How often do you attend chur ch or mu-ism services? Never 06/08/2025 Do you belong to any clubs o r organizations such as islam groups, unions, fraternal or athletic groups, or [...] any time in the past 12 m [facility], were you homeless or living in a mcc (including now)? No 06/08/2025 Personal Safety Answer Date Recorded Have you ever been in or are you currently in a harmful physical or emotional relationship or is someone making you feel afraid or unsafe? Denies 06/04/2025 Sex and Gender Information Value Date Recorded Sex Assigned at Not on file Legal Sex Male 9:37 AM TELLER Gender Identity Male 11/26/2019 3:10 PM TELLER Sexual Orientation Not on file documented as of this encounter Plan of Treatment Not on file documented as of this encounter Goals Goal Patient Goal Type Associated Problems Recent Progress Patient-Stated? Author Patient will have kept initial appointment and will show signs of improvement to baseline Care Plan Initial Follow-Up Appointment No Yarelis Rachel LCSW documented as of this encounter Visit Diagnoses Not on filedocumented in this encounter Additional Health Concerns Active Problems Noted Date Diagnosed Date Initial Follow-Up Appointment 06/08/2025 Infection Onset Date Last Indicated Resolved Time Tuberculosis (rule out) 06/04/2025 06/04/2025 documented as of this encounter Care Teams Swim Instructor Relationship Specialty Start Date End Date Naveed Mcintosh MD [address] [place] [address] PCP - General Family Medicine 10/07/19 Salas Gottlieb MD [address] [place] [address] Referring Physician Critical Care Med 06/02/25 Yarelis Rachel LCSW [address] [facility] ([phone] [place] [address] SHOP Outpatient Outside Upholsterer 06/08/25 documented as of this encounter
--- OUTSIDE RECORDS SUMMARY | 2025-06-15 13:54 | XMS_ITS | Encounter Summary ---
Author Organization [facility] Address [address] [place] [address] Phone Care Team Providers Care Electrophysiology Tech Name Role Phone Naveed Mcintosh MD Primary Care Prov ider Salas Gottlieb MD Unavailable [phone] Yarelis Rachel CHEMICAL PROCESS ENGINEER Unavailable [phone] Encounter Details Date Type Department Care Team (Late st Contact Info) Description 06/15/2025 Telephone [facility] Infectious Diseases [address] [place] [address] [place] [phone] Alyssa Chen Social History Tobacco Use Types Packs/Day Years Used Date Smoking Tobacco: Former Cigarettes 1.5 65 0 03/12/1957 - 09/19/2018 Smokeless Tobacco: Never Comments:Quit 08/2019 Alcohol Use Standard Drinks/Week Comments Not Currently 0 (1 standard drink = 0.6 oz pur e alcohol) [facility] Utilities Answer Date Recorded In the past 12 months has e electric, gas, oil, or water company [...] often do you attend chur ch or jainism services? Never 06/08/2025 Do you belong to any clubs o r organizations such as latter-day groups, unions, fraternal or athletic groups, or [...] any time in the past 12 m [facility], were you homeless or living in a correction (including now)? No 06/08/2025 Personal Safety Answer Date Recorded Have you ever been in or are you currently in a harmful physical or emotional relationship or is someone making you feel afraid or unsafe? Denies 06/04/2025 Sex and Gender Information Value Date Recorded Sex Assigned at Not on file Legal Sex Male 9:37 AM OBSTETRICS SCRUB NURSE Gender Identity Male 11/26/2019 3:10 PM OBSTETRICS SCRUB NURSE Sexual Orientation Not on file documented as of this encounter Miscellaneous Notes * Telephone Encounter - GustavoAlyssa - 06/15/2025 10:36 AM CDT Patient is having shortness of breath still, patient is using his albuterol but not helping. Patients is gasping for air after walking from bedroom to bathroom. Patient states the O2 has gotten as low as 74. Patient is raspy and hard and coughing up a little bit of sputum. Sputum is grayish green. [phone] documented in this encounter Plan of Treatment [...] documented as of this encounter Care Teams Electrophysiology Tech Relationship Specialty Start Date End Date Naveed Mcintosh MD [address] [place] [address] PCP - General Family Medicine 10/07/19 Salas Gottlieb MD [address] [place], [place] [id number] Referring Physician Critical Care Med 06/02/25 Yarelis Rachel LCSW [address] [employer] ([facility]) Mailstop [phone] [place] [address] SHOP Outpatient Judicial Reporter 06/08/25 documented as of this encounter
--- OUTSIDE RECORDS SUMMARY | 2025-06-15 13:54 | XMS_ITS ---
Care Plan Created on: June 15, 2025 Russell Morse : 1945 Sex: Male Author Organization [id number] [id number] Address [address] [place] [address] Care Team Providers Care Telemetry Nurse Name Role Phone Naveed Mcintosh MD Primary Care Prov ider Salas Gottlieb MD Unavailable [phone] Yarelis Rachel [facility] Unavailable [phone] Active Problems Problem Noted Date Diagnosed Date [...] with Dr. Harvey Gottlieb who is his golf cart repairer at [facility]. His previous pulmonary workup included alpha 1 [...] with Dr. Harvey Gottlieb who is his golf cart repairer at [facility]. His previous pulmonary workup included alpha 1 [...] with Dr. Harvey Gottlieb who is his golf cart repairer at [facility]. His previous pulmonary workup included alpha 1 [...] Assessment & Plan (06/05/2025 4:00 PM CDT): Russell Mosre is a 80 y.o. 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 ID was consulted for MAC and patient was started on triple therapy for this 06/04. CT chest did show basilar consolidation suggestive of aspiration +/- pneumonia and PNA PCR + pseudomonas Since arrival to [facility], he has been on 3 L nasal [...] with Dr. Harvey Gottlieb who is his golf cart repairer at [facility]. His previous pulmonary workup included alpha 1 [...] Assessment & Plan (06/04/2025 6:33 PM CDT): Russell Morse is a 80 y.o. 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 Adams who communicated that outpatient golf cart repairer has done immunoglobulin levels, and patient has [...] of COPD exacerbation/pneumonia/brochiectasis exacerbation. Since arrival to [facility], he has been on 3 L nasal [...] Plan (06/04/2025 3:59 AM CDT): Transferred from [facility] for pulm and ID evaluation of recurrent bacterial PNA and MAC infection. 11 episodes of PNA requiring abx therapy in past two years. Hx of COPD on baseline 4L NC reported. MAC infection on recent sputum cultures, evaluated by ID here at [facility] [place] and recommended starting rifabutin 300mg daily, azithromycin [...] - chest xray, defer further imaging until programmer analyst consultant recs to avoid unnecessary repeat radiation [...] Assessment & Plan (06/05/2025 4:00 PM CDT): Russell Nieto Lito is a 80 y.o. 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 ID was consulted for MAC and patient was started on triple therapy for this 06/04. CT chest did show basilar consolidation suggestive of aspiration +/- pneumonia and PNA PCR + pseudomonas Since arrival to [facility], he has been on 3 L nasal [...] Assessment & Plan (06/04/2025 6:33 PM CDT): Russell Morse is a 80 y.o. 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 Adams who communicated that outpatient golf cart repairer has done immunoglobulin levels, and patient has [...] of COPD exacerbation/pneumonia/brochiectasis exacerbation. Since arrival to [facility], he has been on 3 L nasal [...] Plan (06/04/2025 3:59 AM CDT): Transferred from [facility] for pulm and ID evaluation of recurrent bacterial PNA and MAC infection. 11 episodes of PNA requiring abx therapy in past two years. Hx of COPD on baseline 4L NC reported. MAC infection on recent sputum cultures, evaluated by ID here at [facility] [place] and recommended starting rifabutin 300mg daily, azithromycin [...] - chest xray, defer further imaging until programmer analyst consultant recs to avoid unnecessary repeat radiation [...] with Dr. Harvey Gottlieb who is his golf cart repairer at [facility]. His previous pulmonary workup included alpha 1 [...] with Dr. Harvey Gottlieb who is his golf cart repairer at [facility]. His previous pulmonary workup included alpha 1 [...] with Dr. Harvey Gottlieb who is his golf cart repairer at [facility]. His previous pulmonary workup included alpha 1 [...] Assessment & Plan (06/05/2025 4:00 PM CDT): Russell Morse is a 80 y.o. 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 ID was consulted for MAC and patient was started on triple therapy for this 06/04. CT chest did show basilar consolidation suggestive of aspiration +/- pneumonia and PNA PCR + pseudomonas Since arrival to [facility], he has been on 3 L nasal [...] Assessment & Plan (06/04/2025 6:33 PM CDT): Russell Morse is a 80 y.o. 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 Adams who communicated that outpatient golf cart repairer has done immunoglobulin levels, and patient has [...] of COPD exacerbation/pneumonia/brochiectasis exacerbation. Since arrival to [facility], he has been on 3 L nasal [...] Plan (06/04/2025 3:59 AM CDT): Transferred from [facility] for pulm and ID evaluation of recurrent bacterial PNA and MAC infection. 11 episodes of PNA requiring abx therapy in past two years. Hx of COPD on baseline 4L NC reported. MAC infection on recent sputum cultures, evaluated by ID here at [facility] [place] and recommended starting rifabutin 300mg daily, azithromycin [...] - chest xray, defer further imaging until programmer analyst consultant recs to avoid unnecessary repeat radiation [...] DAYLIN. Follows with Dr. Clemons at the [facility] in [place], [place]. 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 Follows with Dr. Clemons at the [facility] in [place], [place]. 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 Follows with Dr. Clemons at the [facility] in [place], [place]. Assessment & Plan (06/04/2025 3:59 AM [...] with Dr. Harvey Gottlieb who is his golf cart repairer at [facility]. His previous pulmonary workup included alpha 1 [...] Plan (06/04/2025 3:59 AM CDT): Transferred from [facility] for pulm and ID evaluation of recurrent bacterial PNA and MAC infection. 11 episodes of PNA requiring abx therapy in past two years. Hx of COPD on baseline 4L NC reported. MAC infection on recent sputum cultures, evaluated by ID here at [facility] [place] and recommended starting rifabutin 300mg daily, azithromycin [...] - chest xray, defer further imaging until programmer analyst consultant recs to avoid unnecessary repeat radiation exposure - RVP, urine legionella, MRSA PCR, sputum culture - ID and pulmonology consult in AM mac 06/04/2025 06/05/2025 Bronchiectasis 06/04/2025 06/05/2025 Assessment & Plan (06/06/2025 11:22 AM CDT): Russell Morse is a 80 y.o. male with a [...] and go back to home inhaler. - COUNTY AUDITOR evaluation - Will f/u [facility]. - Will arrange follow up in clinic with us - Levaquin 750 mg daily x 14 day course (EOT 06/18) Assessment & Plan (06/05/2025 1:01 PM CDT): Russell Morse is a 80 y.o. male with a [...] valve, BID vest therapy and DuoNebs. - COUNTY AUDITOR evaluation - Continue current antibiotics (meropenem, azithro) [...] home metop XL 50mg - check NT-proBNP Additional Health Concerns Active Problems Noted Date Diagnosed Date Initial Follow-Up Appointment 06/08/2025 Infection Onset Date Last Indicated Tuberculosis (rule out) 06/04/2025 06/04/20 25 Goals Goal Patient Goal Type Associated Problems Recent Progress Patient-Stated? Author Patient will have kept initial appointment and will show signs of improvement to baseline Care Plan Initial Follow-Up Appointment Yarelis Pineda, EL Interventions Care Plan Interventions Intervention Entry Date Outcome Follow up with patient 2 days after Post Hospital Visit office visit to ensure understanding of changes and follow-up plan 06/08/2025 Coordinate with patient/caregiver(s) to ensure patient is able to keep scheduled appointment 06/08/2025 Address any barriers for keeping scheduled appointment 06/08/2025 Discuss with patient/ caregiver plan for transportation to appointment 06/08/2025 Ensure Pt has follow-up scheduled within 7 days of discharge 06/08/2025 Related Goals and Interventions Goal Associated Intervent ions Patient will have kept initi al appointment and will show signs of improvement to baseline Follow up with patient 2 days after Post Hospital Visit office visit to ensure understanding of changes and follow-up plan; Coordinate with patient/caregiver(s) to ensure patient is able to keep scheduled appointment; Address any barriers for keeping scheduled appointment; Discuss with patient/ caregiver plan for transportation to appointment; Ensure Pt has follow-up scheduled within 7 days of discharge
--- OUTSIDE RECORDS SUMMARY | 2025-06-15 13:54 | XMS_ITS | Referral Summary ---
Author Organization [facility] [address] Address [address] [place] [address] Care Team Providers Care Slipcover Cutter Name Role Phone Naveed Mcintosh MD Primary Care Prov ider Salas Gottlieb MD Unavailable [phone] Yarelis Rachel CAFETERIA TABLE ATTENDANT Unavailable Encounters Date Type Department Care Team Description 06/15/2025 SHOP/CHAP Subsequent Outreach [facility]NAGEMENT [address] [place] [phone] Yarelis Rachel LCSW 06/15/2025 Telephone [facility] Infectious Diseases [address] [place] [phone] Daniella Leach 06/15/2025 Telephone [facility] Infectious Diseases [address] [place] [address] [place] [phone] Alyssa Chen 06/13/2025 Telephone [facility] Infectious Diseases [address] [place] [phone] Alyssa Chen 06/08/2025 SHOP/CHAP Initial Outreach [facility]NAG[facility] [address] [place] [address] Yarelis Rachel, CAFETERIA TABLE ATTENDANT 06/08/2025 Telephone [facility] Home Care Services [address] [facility] [address] [place] [phone] Lindsay Quiroz 06/08/2025 SHOP/CHAP Initial Eligibility Review [facility]NAGEMENT 1 [place] [address] Yarelis Rachel, CAFETERIA TABLE ATTENDANT 06/07/2025 Telephone [facility] Home Care Services [address] [place] [address] [place] [phone] Lindsay Quiroz 06/07/2025 Telephone [facility] [address] [place] [address] [place] [phone] Lindsay Quiroz 06/07/2025 Orders Only [facility] Scheduling [address] [place] [address] Camilo Shi MD Shortness of breath (Primary Dx) 06/04/2025 1:12 AM CDT - 06/07/2025 3:09 PM CDT Hospital Encounter [facility] 1 [place] [address] Lukas Paredes MD Kocak, MD Raffy Smithwood, MD Tomer Marina Ali Ayub, MD Acute on chronic hypoxic respiratory failure (HCC) (Primary Dx) Discharge Disposition: Discharge to home or self care 06/06/2025 3:30 PM CDT - 06/06/2025 11:59 PM CDT Hospital Encounter [facility] Radiology 1 [place] [address] Discharge Disposition: Discharge to home or self care 06/02/2025 Telephone [facility] Infectious Diseases [address] [phone] Enma Tate RMA 06/02/2025 Telephone [facility] Infectious Diseases [address] [phone] Alyssa Chen 05/30/2025 Documentation Internal Medicine Lukas Paredes MD 05/30/2025 Telephone [facility] Infectious Diseases [address] [place] [phone] Alyssa Chen 05/30/2025 Telephone [facility] Infectious Diseases [address] [place] [phone] Enma Tate RMA 05/04/2025 Telephone [facility] Infectious Diseases [address] [place] [phone] Kaylin Horvath CMA 05/04/2025 Telephone [facility] Infectious Diseases [address] [place] [phone] Daniella Leach 05/02/2025 1:22 PM CDT - 05/02/2025 11:59 PM CDT Hospital Encounter [facility] [address] [place] [address] Discharge Disposition: Discharge to home or self care 05/02/2025 10:24 AM CDT - 05/02/2025 11:59 PM CDT Hospital Encounter [facility] Radiology [facility] [address] [place] [id number] Diagnosis unknown Discharge Disposition: Discharge to home or self care 05/02/2025 10:17 AM CDT - 05/02/2025 11:59 PM CDT Hospital Encounter [facility] Radiology [facility] [address] [place] [address] Discharge Disposition: Discharge to home or self care 05/02/2025 8:40 AM CDT Office Visit [facility] Infectious Diseases [address] [place] [phone] Gladys Larson NP Mycobacterial infection, unspecified 04/25/2025 Documentation Internal Medicine Gladys Toure MD Transfer Notification 03/27/2025 Telephone [facility] Infectious Diseases [address] [place] [phone] Daniela Valles CMA from Last 3 Months Allergies Active Allergy [...] 80 mg tabletIndicatio ns:Coronary artery disease involving seneca-cayuga coronary artery of seneca-cayuga heart without angina pectoris TAKE 1 TABLET [...] 25 mg tabletIndicatio ns:Coronary artery disease involving seneca-cayuga coronary artery of seneca-cayuga heart without angina pectoris Take 1 tablet [...] 1 tablet (750 mg total) by mouth inspector canned food reconditioning before breakfast for 11 days 11 tablet 5 06/19/20 25 Active ethambutoL (MYAMBUTOL) 400 mg tabletIndicatio ns:Mycobacterio sis Take 3 tablets (1,200 mg total) by mouth daily for 21 days 63 tablet 06/28/20 25 Active Active Problems Problem Noted [...] with Dr. Harvey Gottlieb who is his assistant account manager at [facility]. His previous pulmonary workup included [...] with Dr. Harvey Gottlieb who is his assistant account manager at [facility]. His previous pulmonary workup included [...] with Dr. Harvey Gottlieb who is his assistant account manager at [facility]. 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 ID was consulted for MAC and patient was started on triple therapy for this 06/04. CT chest did show basilar consolidation suggestive of aspiration +/- pneumonia and PNA PCR + pseudomonas Since arrival to [facility], he has been on 3 L [...] with Dr. Harvey Gottlieb who is his assistant account manager at [facility]. His previous pulmonary workup included [...] GERD, depression, BPH who was transferred to [facility] from [facility] 06/04 for further management of [...] with Dr. Adams who communicated that outpatient assistant account manager has done immunoglobulin levels, and patient has [...] of COPD exacerbation/pneumonia/brochiectasis exacerbation. Since arrival to [facility], he has been on 3 L [...] Plan (06/04/2025 3:59 AM CDT): Transferred from [facility] for pulm and ID evaluation of recurrent bacterial PNA and MAC infection. 11 episodes of PNA requiring abx therapy in past two years. Hx of COPD on baseline 4L NC reported. 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 ID was consulted for MAC and patient was started on triple therapy for this 06/04. CT chest did show basilar consolidation suggestive of aspiration +/- pneumonia and PNA PCR + pseudomonas Since arrival to [facility], he has been on 3 L [...] GERD, depression, BPH who was transferred to [facility] from [facility] 06/04 for further management of [...] with Dr. Adams who communicated that outpatient assistant account manager has done immunoglobulin levels, and patient has [...] of COPD exacerbation/pneumonia/brochiectasis exacerbation. Since arrival to [facility], he has been on 3 L [...] Plan (06/04/2025 3:59 AM CDT): Transferred from [facility] for pulm and ID evaluation of recurrent bacterial PNA and MAC infection. 11 episodes of PNA requiring abx therapy in past two years. Hx of COPD on baseline 4L NC reported. MAC infection on recent sputum cultures, evaluated by ID here at [facility] and recommended starting rifabutin 300mg daily, [...] - chest xray, defer further imaging until home performance consultant recs to avoid unnecessary repeat radiation [...] with Dr. Harvey Gottlieb who is his assistant account manager at [facility]. His previous pulmonary workup included [...] with Dr. Harvey Gottlieb who is his assistant account manager at [facility]. His previous pulmonary workup included [...] with Dr. Harvey Gottlieb who is his assistant account manager at [facility]. 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 ID was consulted for MAC and patient was started on triple therapy for this 06/04. CT chest did show basilar consolidation suggestive of aspiration +/- pneumonia and PNA PCR + pseudomonas Since arrival to [facility], he has been on 3 L [...] GERD, depression, BPH who was transferred to [facility] from [facility] 06/04 for further management of [...] with Dr. Adams who communicated that outpatient assistant account manager has done immunoglobulin levels, and patient has [...] of COPD exacerbation/pneumonia/brochiectasis exacerbation. Since arrival to [facility], he has been on 3 L [...] Plan (06/04/2025 3:59 AM CDT): Transferred from [facility] for pulm and ID evaluation of recurrent bacterial PNA and MAC infection. 11 episodes of PNA requiring abx therapy in past two years. Hx of COPD on baseline 4L NC reported. MAC infection on recent sputum cultures, evaluated by ID here at [facility] and recommended starting rifabutin 300mg daily, [...] - chest xray, defer further imaging until home performance consultant recs to avoid unnecessary repeat radiation [...] [facility]. Follows with Dr. Clemons at the [facility] in [place], [place]. 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 Follows with Dr. Clemons at the [facility] in [place], [place]. 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 Follows with Dr. Clemons at the [facility] in [place], [place]. Assessment & Plan (06/04/2025 3:59 AM [...] with Dr. Harvey Gottlieb who is his assistant account manager at [facility]. His previous pulmonary workup included alpha 1 antitrypsin M/M genotype, IgG subclasses with normal total IgG levels with a variable IgG 2 subclass deficiency. 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 11 episodes of PNA requiring abx therapy in past two years. Hx of COPD on baseline 4L NC reported. MAC infection on recent sputum cultures, evaluated by ID here at [facility] and recommended starting rifabutin 300mg daily, [...] - chest xray, defer further imaging until home performance consultant recs to avoid unnecessary repeat radiation [...] and go back to home inhaler. - REGULATORY SCIENTIST evaluation - Will f/u ANCA. - Will [...] valve, BID vest therapy and DuoNebs. - REGULATORY SCIENTIST evaluation - Continue current antibiotics (meropenem, azithro) [...] home metop XL 50mg - check NT-proBNP Social History Tobacco Use Types Packs/Day Years Used Date Smoking Tobacco: Former Cigarettes 1.5 65 0 03/12/1957 - 09/19/2018 Smokeless Tobacco: Never Comments:Quit 08/2019 Alcohol Use Standard Drinks/Week Comments Not Currently 0 (1 standard drink = 0.6 oz pur e alcohol) [facility] Utilities Answer Date Recorded In the past 12 months has [employer], gas, oil, or water [employer] threatened to shut off services in your [...] often do you attend chur ch or presybeterian services? Never 06/08/2025 Do you belong to any clubs o r organizations such as anglican groups, unions, fraternal or athletic groups, or [...] any time in the past 12 m [facility], were you homeless or living in a retirement (including now)? No 06/08/2025 Personal Safety Answer Date Recorded Have you ever been in or are you currently in a harmful physical or emotional relationship or is someone making you feel afraid or unsafe? 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 Author Patient will have kept initial appointment and will show signs of improvement to baseline Care Plan Initial Follow-Up Appointment Yarelis Pineda, CAFETERIA TABLE ATTENDANT Procedures Procedure Name Priority Date/Time Associated Diagnosis Comments EGFR Routine 06/06/2025 9:15 PM CDT DIFFERENTIAL AUTO Routine 06/06/2025 9:1 5 PM CDT PROTIME-INR Routine 06/06/2025 9:15 PM CDT CBC WITH AUTO DIFFERENTIAL Routine 06/06/2025 9:15 PM CDT COMPREHENSIVE METABOLIC PANEL Routine 06/06/2025 9:15 PM CDT FL MODIFIED BARIUM SWALLOW W VIDEO IP Routine 06/06/2025 3:40 PM CDT REGULATORY SCIENTIST EVALUATE AND TREAT VIDEOFLUOROSCOPIC SWALLOW STUDY Routine 06/06/2025 3:30 PM CDT REGULATORY SCIENTIST EVALUATE AND TREAT Routine 5 3:30 PM CDT REGULATORY SCIENTIST EVALUATE AND TREAT Routine 3:30 PM CDT [...] Results * eGFR (06/06/2025 9:15 PM CDT) eGFR 75 >=60 mL/min/1. 73 m2 Comment: [...] MD LAB BLOOD ORDERABLES Final Resu lt [facility] One [facility] [place] [address] * (ABNORMAL) Differential, auto (06/06/2025 9:15 PM CDT) Pathologist [facility] Neutrophil abs 5.92 1.50 - 6.50 K/cumm Imm gran abs 0.14(H) 0.00 - 0.10 K/cumm [facility] Lymphocyte abs 1.20 0.80 - 3.30 K/cumm [facility] Monocyte abs 1.06(H) 0.20 - 0.80 K/cumm [facility] Eosinophil abs 0.40 0.00 - 0.50 K/cumm [facility] Basophil abs 0.03 0.00 - 0.10 K/cumm [facility] Neutrophil pct 67.7 % [facility] Comment: Interpretive Data Percent cell count reference ranges are not reported, since discordance with absolute values may lead to misinterpretation of CBC data. Current Interpretive Data was last revised on 2018. Imm gran pct 1.6 % [facility] Comment: Interpretive Data Percent cell count reference ranges are not reported, since discordance with absolute values may lead to misinterpretation of CBC data. Current Interpretive Data was last revised on 2018. Lymphocyte pct 13.7 % [facility] Comment: Interpretive Data Percent cell count reference ranges are not reported, since discordance with absolute values may lead to misinterpretation of CBC data. Current Interpretive Data was last revised on 2018. Monocyte pct 12.1 % [facility] Comment: Interpretive Data Percent cell count reference ranges are not reported, since discordance with absolute values may lead to misinterpretation of CBC data. Current Interpretive Data was last revised on 2018. Eosinophil pct 4.6 % [facility] Comment: Interpretive Data Percent cell count reference ranges are not reported, since discordance with absolute values may lead to misinterpretation of CBC data. Current Interpretive Data was last revised on 2018. Basophil pct 0.3 % [facility] Comment: Interpretive Data Percent cell count reference ranges are not reported, since discordance with absolute values may lead to misinterpretation of CBC data. Current Interpretive Data was last revised on 2018. Blood 06/06/2025 9:15 PM CDT 06/06/2025 10:33 PM CDT us Dianna Root MD LAB BLOOD ORDERABLES Final Resu lt [facility] One [facility] [place] [address] * (ABNORMAL) CBC with auto differential (06/06/2025 9:15 PM CDT) WBC 8.75 3.80 - 9.90 K/cumm Hgb 8.9(L) 13.0 - 17.5 g/dL [facility] Hct 28.3(L) 38.9 - 50.3 % [facility] Plt 263 150 - 400 K/cumm [facility] MPV 10.8 9.1 - 12.[address] [facility] RBC 3.18(L) 4.30 - 5.80 M/cumm [facility] MCV 89.0 81.3 - 96.[address] [facility] MCH 28.0 27.1 - 33.[address] [facility] MCHC 31.4(L) 32.3 - 35.7 g/dL [facility] RDW CV 15.0(H) 11.1 - 14.9 % [facility] RDW SD 48.6(H) 35.7 - 48.[address] [facility] NRBC abs 0.00 0.00 - 0.01 K/cumm [facility] Blood 06/06/2025 9:15 PM CDT 06/06/2025 10:33 PM CDT us Dianna Root MD LAB BLOOD ORDERABLES Final Resu lt [facility] One [facility] [place] [address] * (ABNORMAL) Protime-INR (06/06/2025 9:15 PM CDT) PT 17.4(H) 9.7 - 13.0 sec INR 1.60(H) 0.90 - 1.[address] [facility] Comment: Interpretive data Oral anticoagulant therapeutic ranges: Venous thromboembolism prophylaxis or treatment: 2.0-3.0 CARDIOLOGY Standard range: 2.0-3.0 High-intensity range: 2.5-3.5 Refer to indication-specific guidelines for appropriate target ranges for prosthetic heart valve replacement. Current interpretive data was last revised on 2019. Blood 06/06/2025 9:15 PM CDT 06/06/2025 10:36 PM CDT Dianna Root MD LAB BLOOD ORDERABLES Final Resu lt [facility] One [facility] Department [place] [address] * (ABNORMAL) Comprehensive metabolic panel (06/06/2025 9:15 PM CDT) Sodium 139 135 - 145 mmol/L Potassium, pl 4.7 3.3 - 4.9 mmol/L [facility] Chloride 96(L) 97 - 110 mmol/L [facility] CO2 35(H) 22 - 32 mmol/L [facility] Anion gap 8 2 - 15 mmol/L [facility] BUN 27(H) 6 - 25 mg/dL [facility] Creatinine 1.01 0.80 - 1.30 mg/dL [facility] Glucose 103 70 - 199 mg/dL [facility] Comment: Interpretive Data Fasting glucose >/= 126 [...] 2022. Calcium 9.6 8.5 - 10.3 mg/dL [facility] Bilirubin, total 0.3 0.1 - 1.2 mg/dL [facility] Protein, pl 6.8 6.5 - 8.5 g/dL [facility] Albumin 3.2(L) 3.5 - 5.0 g/dL [facility] Alk phos 194(H) 40 - 130 Units/L [facility] ALT 23 7 - 55 Units/L [facility] AST 34 10 - 50 Units/L [facility] Blood 06/06/2025 9:15 PM CDT 06/06/2025 10:33 PM CDT Dianna Root MD LAB BLOOD ORDERABLES Final Resu lt [facility] Department [place] [address] * FL Modified Barium Swallow W Video [...] it. Electronically signed by: Catrachita Katz M.D. Lukas Paredes MD IMG FLUOROSCOPY PROCEDURE S Final Result * REGULATORY SCIENTIST Evaluate and Treat (VFSS) (06/06/2025 3:30 PM CDT) Narrative Taisha Auguste, JOE - 06/06/2025 3:30 PM CDT Taisha Auguste SLP 06/06/2025 4:33 PM Speech-Language Pathology: Videofluoroscopic Study of Swallow (VFSS/MBS) HPI/PMH 80 y.o. 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 Plan REGULATORY SCIENTIST Frequency of Services during current admission: Discharge from this Service REGULATORY SCIENTIST Recommendation (Add'l Services): No further REGULATORY SCIENTIST indicated Next Visit Plan: No further ST warranted Additional Referrals: N/A Discharge Summary Statement If this is the last swallow therapy visit, this serves as the discharge summary. us Lukas Paredes MD REGULATORY SCIENTIST ORDERABLES Final Res ult * REGULATORY SCIENTIST Evaluation and Treatment (06/06/2025 3:30 PM CDT) Narrative Taisha Auguste, JOE - 06/06/2025 3:30 PM CDT Taisha Auguste, JOE 06/06/2025 4:33 PM Speech-Language Pathology: Videofluoroscopic Study of Swallow (VFSS/MBS) HPI/PMH 80 y.o. 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 Plan REGULATORY SCIENTIST Frequency of Services during current admission: Discharge from this Service REGULATORY SCIENTIST Recommendation (Add'l Services): No further REGULATORY SCIENTIST indicated Next Visit Plan: No further ST warranted Additional Referrals: N/A Discharge Summary Statement If this is the last swallow therapy visit, this serves as the discharge summary. us Lukas Paredes MD REGULATORY SCIENTIST ORDERABLES Final Res ult * REGULATORY SCIENTIST Evaluation and Treatment (06/06/2025 3:30 PM CDT) Narrative Taisha Auguste, JOE - 06/06/2025 3:30 PM CDT Taisha Auguste SLP 06/06/2025 4:33 PM Speech-Language Pathology: Videofluoroscopic Study of Swallow (VFSS/MBS) HPI/PMH 80 y.o. 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 Plan REGULATORY SCIENTIST Frequency of Services during current admission: Discharge from this Service REGULATORY SCIENTIST Recommendation (Add'l Services): No further REGULATORY SCIENTIST indicated Next Visit Plan: No further ST warranted Additional Referrals: N/A Discharge Summary Statement If this is the last swallow therapy visit, this serves as the discharge summary. us Keith Alexander MD REGULATORY SCIENTIST ORDERABLES Final Resu lt * TRANSTHORACIC ECHO (TTE) COMPLETE W DOPPLER/CF W CONTRAST (06/06/2025 12:04 PM CDT) EF Mod BP 55 % CONS SCIMAGE Anatomical Region Laterality Modality Ultrasound 06/06/2025 11:1 7 AM CDT Narrative 06/06/2025 1:37 PM CDT [facility] [place] [address] Transthoracic Echocardiographic Report Patient Name: ELMER LÓPEZ R : 1945 (80y 3m) Gender: M Study Date: 06/06/2025 11:17:38 AM Ht(Inch): 71 Wt(Lb): 169.97 BSA: 1.97 Call Center Analyst: Estrellita Carrero RDCS Location: [id number] Order Provider: DIANNA ROOT Heart Rate: 80 [...] Procedure Note Nava Morales MD - 06/06/2025 [facility] Cardiac Diagnostic [place] [address] Transthoracic Echocardiographic Report Patient Name: ELMER LÓPEZ R : 1945 (80y 3m) Gender: M Study Date: 06/06/2025 11:17:38 AM Ht(Inch): 71 Wt(Lb): 169.97 BSA: 1.97 Call Center Analyst: Estrellita Carrero [facility] Location: [id number] Order Provider:DIANNA ROOT Heart Rate: 80 BMI: [...] MD LAB BLOOD ORDERABLES Final Resu lt [facility] One [facility] [place] [address] * (ABNORMAL) Differential, auto (06/05/2025 10:58 PM CDT) Neutrophil abs 4.68 1.50 - 6.50 K/cumm Imm gran abs 0.08 0.00 - 0.10 K/cumm [facility] Lymphocyte abs 1.24 0.80 - 3.30 K/cumm [facility] Monocyte abs 0.96(H) 0.20 - 0.80 K/cumm [facility] Eosinophil abs 0.50 0.00 - 0.50 K/cumm [facility] Basophil abs 0.03 0.00 - 0.10 K/cumm [facility] Neutrophil pct 62.4 % [facility] Comment: Interpretive Data Percent cell count reference ranges are not reported, since discordance with absolute values may lead to misinterpretation of CBC data. Current Interpretive Data was last revised on 2018. Imm gran pct 1.1 % [facility] Comment: Interpretive Data Percent cell count reference ranges are not reported, since discordance with absolute values may lead to misinterpretation of CBC data. Current Interpretive Data was last revised on 2018. Lymphocyte pct 16.6 % [facility] Comment: Interpretive Data Percent cell count reference ranges are not reported, since discordance with absolute values may lead to misinterpretation of CBC data. Current Interpretive Data was last revised on 2018. Monocyte pct 12.8 % [facility] Comment: Interpretive Data Percent cell count reference ranges are not reported, since discordance with absolute values may lead to misinterpretation of CBC data. Current Interpretive Data was last revised on 2018. Eosinophil pct 6.7 % [facility] Comment: Interpretive Data Percent cell count reference ranges are not reported, since discordance with absolute values may lead to misinterpretation of CBC data. Current Interpretive Data was last revised on 2018. Basophil pct 0.4 % [facility] Comment: Interpretive Data Percent cell count reference ranges are not reported, since discordance with absolute values may lead to misinterpretation of CBC data. Current Interpretive Data was last revised on 2018. Blood 06/05/2025 10:5 8 PM CDT 06/06/2025 12:50 AM CDT us Dianna Root MD LAB BLOOD ORDERABLES Final Resu lt [facility] One [facility] [place] [address] * (ABNORMAL) CBC with auto differential (06/05/2025 10:58 PM CDT) Pathologist [facility] WBC 7.49 3.80 - 9.90 K/cumm Hgb 8.4(L) 13.0 - 17.5 g/dL [facility] Hct 26.6(L) 38.9 - 50.3 % [facility] Plt 233 150 - 400 K/cumm [facility] MPV 10.9 9.1 - 12.[address] [facility] RBC 2.93(L) 4.30 - 5.80 M/cumm [facility] MCV 90.8 81.3 - 96.[address] [facility] MCH 28.7 27.1 - 33.[address] [facility] MCHC 31.6(L) 32.3 - 35.7 g/dL [facility] RDW CV 15.3(H) 11.1 - 14.9 % [facility] RDW SD 51.3(H) 35.7 - 48.[address] [facility] NRBC abs 0.00 0.00 - 0.01 K/cumm [facility] Blood 06/05/2025 10:5 8 PM CDT 06/06/2025 12:50 AM CDT us Dianna Root MD LAB BLOOD ORDERABLES Final Resu lt [facility] One [facility] [place] [address] * (ABNORMAL) Protime-INR (06/05/2025 10:58 PM CDT) Pathologist [facility] PT 18.5(H) 9.7 - 13.0 sec INR 1.69(H) 0.90 - 1.[address] [facility] Comment: Interpretive data Oral anticoagulant therapeutic ranges: Venous thromboembolism prophylaxis or treatment: 2.0-3.0 CARDIOLOGY Standard range: 2.0-3.0 High-intensity range: 2.5-3.5 Refer to indication-specific guidelines for appropriate target ranges for prosthetic heart valve replacement. Current interpretive data was last revised on 2019. Blood 06/05/2025 10:5 8 PM CDT 06/06/2025 12:58 AM CDT Dianna Root MD LAB BLOOD ORDERABLES Final Resu lt [facility] One [facility] [place] [address] * (ABNORMAL) Comprehensive metabolic panel (06/05/2025 10:58 PM CDT) Sodium 138 135 - 145 mmol/L Potassium, pl 4.4 3.3 - 4.9 mmol/L [facility] Chloride 98 97 - 110 mmol/L [facility] CO2 32 22 - 32 mmol/L [facility] Anion gap 8 2 - 15 mmol/L [facility] BUN 22 6 - 25 mg/dL [facility] Creatinine 1.02 0.80 - 1.30 mg/dL [facility] Glucose 107 70 - 199 mg/dL [facility] Comment: Interpretive Data Fasting glucose >/= 126 [...] Calcium 9.0 8.5 - 10.3 mg/dL [facility] Bilirubin, total 0.2 0.1 - 1.2 mg/dL [facility] Protein, pl 6.2(L) 6.5 - 8.5 g/dL [facility] Albumin 2.9(L) 3.5 - 5.0 g/dL [facility] Alk phos 192(H) 40 - 130 Units/L [facility] ALT 20 7 - 55 Units/L [facility] AST 38 10 - 50 Units/L [facility] Blood 06/05/2025 10:5 8 PM CDT 06/06/2025 12:38 AM CDT Dianna Root MD LAB BLOOD ORDERABLES Final Resu lt [facility] One [facility] Department [place] [address] * Pneumonia PCR Sputum, induced (06/05/2025 4:53 AM CDT) C. pneumoniae DNA Not Detected Not Detected Legionella pneumophila DNA Not Detected Not Detected [facility] M. pneumoniae DNA Not Detected Not Detected [facility] Adenovirus DNA Not Detected Not Detected [facility] Coronavirus (229E, OC43, HKU1, NL63) RNA Not Detected Not Detected [facility] Metapneumovirus RNA Not Detected Not Detected [facility] Rhinovirus/Enterov irus RNA Not Detected Not Detected [facility] Influenza A RNA Not Detected Not Detected [facility] Influenza B RNA Not Detected Not Detected [facility] Parainfluenza virus (1-4) RNA Not Detected Not Detected [facility] RSV RNA Not Detected Not Detected [facility] Sputum, induced 06/05/2025 4 :53 AM CDT 06/05/2025 7:31 AM CDT Narrative [facility] - 06/05/2025 8:59 AM CDT The [employer] [...] rule out infection/co-infection with other organisms. The [employer] Pneumonia Panel is FDA cleared for lower respiratory tract specimens. The performance characteristics of this assay have been determined by [facility]. Current interpretive data was last revised on 2025. us Keith Alexander MD LAB MICROBIOLOGY - GENERAL ORDERABLES Final Result [facility] One [facility] Department [place] [address] * (ABNORMAL) Pneumonia PCR with aerobic culture and Gram stain Sputum, induced (06/05/2025 4:53 AM CDT) Direct Specimen Exam Molecular Analysis: 10^6 copies/mL Pseudomonas aeruginosa Correlation of molecular analysis with final culture results is recommended. Direct Specimen Exam Stain: Moderate polymorphonuclear leukocytes seen. Few squamous epithelial cells seen. Few mixed bacterial anahi seen on Gram stain. [facility] Report Final Report: Growth indicates upper respiratory anahi. (.) [facility] Organism GROWTH INDICATES UPPER RESPIRATORY ANAHI. [facility] Sputum, induced 06/05/2025 4 :53 AM CDT 06/05/2025 6:28 AM CDT Narrative [facility] - 06/07/2025 1:16 PM CDT When rapid molecular testing results are reported, testing completed using the [employer] Pneumonia Panel. This molecular assay detects: Acinetobacter [...] [employer] Pneumonia Panel is cleared by the US Food and Drug Administration and its performance characteristics have been confirmed by the [facility]. The performance of the [employer] Pneumonia Panel has not been established for monitoring treatment of infection and bacterial nucleic acids may persist independent of organism viability. Keith Alexander MD LAB MICROBIOLOGY - GENERAL ORDERABLES Final Result [facility] One [facility] [place] [address] * Mycobacterium tuberculosis PCR Sputum, induced (06/05/2025 4:53 AM CDT) Report Final Report: Target not detected Organism TARGET NOT DETECTED [facility] Sputum, induced 06/05/2025 4 :53 AM CDT 06/05/2025 6:28 AM CDT Narrative [facility] - 06/05/2025 1:24 PM CDT 1. Nucleic acid amplification for detection of Mycobacterium tuberculosis complex is performed using the [employer] GeneXpert MTB/RIF assay. This assay has been approved by the [place] Food and Drug administration for detection of M. tuberculosis in sputum samples. The performance characteristics of this test have been verified by the [facility] Microbiology laboratory for sputum samples and lower [...] GENERAL ORDERABLES Final Result Performing Organization Address [facility] Co de Phone Number [facility] [place] [address] * Infection Prevention MRSA Only (Staphylococcus aureus) Culture Nasal (06/05/2025 4:50 AM CDT) Report Final Report: Negative Nasal 06/05/2025 4:50 AM CDT 06/05/2025 6:40 AM CDT [facility] 06/06/2025 8:37 AM CDT Testing performed by [facility]biology Laboratory ([phone]). Keith Alexander MD LAB MICROBIOLOGY - GENERAL ORDERABLES Final Result Performing Organization Address [facility] Co de Phone Number [facility] [place] [employer] [place] [address] * TERRA ab ql w/rflx to TERRA [...] BLOOD ORDERABLES Final Result Performing Organization Address City/[facility]/ZIP Co de Phone Number [facility] [place] [employer] [place] [address] * eGFR (06/04/2025 10:45 PM CDT) eGFR [...] ORDERABLES Final Resu lt Performing Organization Address City/[facility]/ZIP Co de Phone Number [facility] Department [place] [address] * (ABNORMAL) Differential, auto (06/04/2025 10:45 PM CDT) Neutrophil abs 6.47 1.50 - 6.50 K/cumm Imm gran abs 0.08 0.00 - 0.10 K/cumm [facility] Lymphocyte abs 0.89 0.80 - 3.30 K/cumm [facility] Monocyte abs 1.04(H) 0.20 - 0.80 K/cumm [facility] Eosinophil abs 0.38 0.00 - 0.50 K/cumm [facility] Basophil abs 0.03 0.00 - 0.10 K/cumm [facility] Neutrophil pct 72.8 % [facility] Comment: Interpretive Data Percent cell count reference ranges are not reported, since discordance with absolute values may lead to misinterpretation of CBC data. Current Interpretive Data was last revised on 2018. Imm gran pct 0.9 % [facility] Comment: Interpretive Data Percent cell count reference ranges are not reported, since discordance with absolute values may lead to misinterpretation of CBC data. Current Interpretive Data was last revised on 2018. Lymphocyte pct 10.0 % [facility] Comment: Interpretive Data Percent cell count reference ranges are not reported, since discordance with absolute values may lead to misinterpretation of CBC data. Current Interpretive Data was last revised on 2018. Monocyte pct 11.7 % [facility] Comment: Interpretive Data Percent cell count reference ranges are not reported, since discordance with absolute values may lead to misinterpretation of CBC data. Current Interpretive Data was last revised on 2018. Eosinophil pct 4.3 % [facility] Comment: Interpretive Data Percent cell count reference ranges are not reported, since discordance with absolute values may lead to misinterpretation of CBC data. Current Interpretive Data was last revised on 2018. Basophil pct 0.3 % [facility] Comment: Interpretive Data Percent cell count reference ranges are not reported, since discordance with absolute values may lead to misinterpretation of CBC data. Current Interpretive Data was last revised on 2018. Blood 06/04/2025 10:4 5 PM CDT 06/05/2025 12:39 AM CDT Dianna Root MD LAB BLOOD ORDERABLES Final Resu lt Performing Organization Address City/[facility]/ZIP Co de Phone Number [facility] [place] [address] * (ABNORMAL) Iron profile w/ IBC (06/04/2025 10:45 PM CDT) Pathologist [facility] Iron 24(L) 50 - 150 mcg/dL TIBC 171(L) 250 - 400 mcg/dL [facility] Transferrin saturation 14(L) 20 - 50 % [facility] Blood 06/04/2025 10:4 5 PM CDT 06/05/2025 12:38 AM CDT Keith Alexander MD LAB BLOOD ORDERABLES Final Result Performing Organization Address [facility] Co de Phone Number [facility] [place] [address] * HIV 1/2 Antibody plus p24 Antigen Blood (06/04/2025 10:45 PM CDT) [facility] HIV 1/2 ab + p24 ag Nonreactive [...] GENERAL ORDERABLES Final Result Performing Organization Address [facility] Co de Phone Number [facility] [place] [address] * Anti-Neutrophilic Cytoplasmic Antibody (ANCA) with Reflex to MPO and PR3 Abs (06/04/2025 10:45 PM CDT) Pathologist [facility] ANCA Negative Blood 06/04/2025 10:4 5 PM CDT 06/05/2025 12:39 AM CDT Keith Alexander MD LAB BLOOD ORDERABLES Final Result Performing Organization Address [facility] Co de Phone Number [facility] [place] [employer] [place] [address] * (ABNORMAL) CBC with auto differential (06/04/2025 10:45 PM CDT) [facility] WBC 8.89 3.80 - 9.90 K/cumm Hgb 9.0(L) 13.0 - 17.5 g/dL [facility] Hct 28.4(L) 38.9 - 50.3 % [facility] Plt 226 150 - 400 K/cumm [facility] MPV 10.9 9.1 - 12.[address] [facility] RBC 3.14(L) 4.30 - 5.80 M/cumm [facility] MCV 90.4 81.3 - 96.[address] [facility] MCH 28.7 27.1 - 33.[address] [facility] MCHC 31.7(L) 32.3 - 35.7 g/dL [facility] RDW CV 15.2(H) 11.1 - 14.9 % [facility] RDW SD 50.3(H) 35.7 - 48.[address] [facility] NRBC abs 0.00 0.00 - 0.01 K/cumm [facility] Blood 06/04/2025 10:4 5 PM CDT 06/05/2025 12:39 AM CDT us Dianna Root MD LAB BLOOD ORDERABLES Final Resu lt Performing Organization Address City/[facility]/ZIP Co de Phone Number [facility] [place] [employer] [address] * RPR Blood (06/04/2025 10:45 PM CDT) Pathologist [facility] RPR Nonreactive Nonreactive Blood 06/04/2025 10:4 5 PM CDT 06/05/2025 12:39 AM CDT Result [facility] Keith Alexander MD LAB MICROBIOLOGY - GENERAL ORDERABLES Final Result Performing Organization Address [facility] de Phone Number [facility] [place] [address] * (ABNORMAL) Protime-INR (06/04/2025 10:45 PM CDT) Pathologist [facility] PT 19.6(H) 9.7 - 13.0 sec INR 1.79(H) 0.90 - 1.[address] [facility] Comment: Interpretive data Oral anticoagulant therapeutic ranges: Venous thromboembolism prophylaxis or treatment: 2.0-3.0 CARDIOLOGY Standard range: 2.0-3.0 High-intensity range: 2.5-3.5 Refer to indication-specific guidelines for appropriate target ranges for prosthetic heart valve replacement. Current interpretive data was last revised on 2019. Blood 06/04/2025 10:4 5 PM CDT 06/05/2025 12:45 AM CDT Result [facility] Dianna Root MD LAB BLOOD ORDERABLES Final Resu lt Performing Organization Address [facility] de Phone Number [facility] [place] [address] * Rheumatoid factor (06/04/2025 10:45 PM CDT) Pathologist [facility] Rheumatoid factor, quant 12.0 0.1 - 15.0 IUnits/mL Blood 06/04/2025 10:4 5 PM CDT 06/05/2025 12:38 AM CDT Keith Alexander MD LAB BLOOD ORDERABLES Final Result Performing Organization Address City/[facility]/ZIP Co de Phone Number [facility] [place] [address] * (ABNORMAL) Protein electrophoresis with reflex, serum with interpretation (06/04/2025 10:45 PM CDT) Protein, sr 6.0(L) 6.2 - 8.2 g/dL Albumin 2.5(L) 3.2 - 5.0 g/dL [facility] Alpha-1 globulin 0.7(H) 0.2 - 0.4 g/dL [facility] Alpha-2 globulin 1.2(H) 0.5 - 1.0 g/dL [facility] Beta-1 globulin 0.4 0.3 - 0.6 g/dL [facility] Beta-2 globulin 0.5 0.2 - 0.6 g/dL [facility] Gamma globulin 0.7 0.5 - 1.7 g/dL [facility] SPEP interp Please see comment [facility] Comment: No apparent monoclonal peak Reviewed and signed by Serenity Wiseman MD, PhD 06/06/2025 Blood 06/04/2025 10:4 5 PM CDT 06/05/2025 12:38 AM CDT us Keith Alexander MD LAB BLOOD ORDERABLES Final Result Performing Organization Address [facility]/ZIP Co de Phone Number [facility] [place] [address] * (ABNORMAL) Phosphorus (06/04/2025 10:45 PM CDT) Pathologist [facility] Phosphorus, pl 2.2(L) 2.3 - 4.5 mg/dL Blood 06/04/2025 10:4 5 PM CDT 06/05/2025 12:38 AM CDT us Dianna Root MD LAB BLOOD ORDERABLES Final Resu lt [facility] [place] [address] * Magnesium (06/04/2025 10:45 PM CDT) Pathologist [facility] Magnesium 1.7 1.4 - 2.5 mg/dL Blood 06/04/2025 10:4 5 PM CDT 06/05/2025 12:38 AM CDT Dianna Root MD LAB BLOOD [place] [address] * Folate (06/04/2025 10:45 PM CDT) Pathologist [facility] Folic acid 7.0 >=5.0 ng/mL Blood 06/04/2025 10:4 5 PM CDT 06/05/2025 12:38 AM CDT us Keith Alexander MD LAB BLOOD ORDERABLES Final Result Performing Organization Address City/[facility]/ZIP Co de Phone Number [facility] [place] [address] * Ferritin (06/04/2025 10:45 PM CDT) Pathologist [facility] Ferritin 269 30 - 400 ng/mL Blood 06/04/2025 10:4 5 PM CDT 06/05/2025 12:38 AM CDT Keith Alexander MD LAB BLOOD ORDERABLES Final Result Performing Organization Address City/[facility]/[place] [address] * Vitamin B12 (06/04/2025 10:45 PM CDT) Pathologist [facility] Vitamin B12 491 230 - 1,250 pg/mL Blood 06/04/2025 10:4 5 PM CDT 06/05/2025 12:38 AM CDT Keith Alexander MD LAB BLOOD ORDERABLES Final Result [facility] One [facility] [place] [address] * (ABNORMAL) Comprehensive metabolic panel (06/04/2025 10:45 PM CDT) Sodium 138 135 - 145 mmol/L Potassium, pl 4.7 3.3 - 4.9 mmol/L [facility] Chloride 100 97 - 110 mmol/L [facility] CO2 31 22 - 32 mmol/L [facility] Anion gap 7 2 - 15 mmol/L [facility] BUN 21 6 - 25 mg/dL [facility] Creatinine 1.05 0.80 - 1.30 mg/dL [facility] Glucose 107 70 - 199 mg/dL [facility] Comment: Interpretive Data Fasting glucose >/= 126 [...] Calcium 9.3 8.5 - 10.3 mg/dL [facility] Bilirubin, total 0.2 0.1 - 1.2 mg/dL [facility] Protein, pl 6.7 6.5 - 8.5 g/dL [facility] Albumin 3.1(L) 3.5 - 5.0 g/dL [facility] Alk phos 222(H) 40 - 130 Units/L [facility] ALT 23 7 - 55 Units/L [facility] AST 44 10 - 50 Units/L [facility] Blood 06/04/2025 10:4 5 PM CDT 06/05/2025 12:38 AM CDT us Dianna Root MD LAB BLOOD ORDERABLES Final Resu lt Performing Organization Address [facility] Co de Phone Number [facility] [place] [address] * Histoplasma Antigen Urine (06/04/2025 6:49 PM CDT) Histo Ag Ur result None Detected None Detected Histo Ag Ur interp Negative Negative [facility] Comment: Result Interpretation: Reference interval: None Detected Results reported as ng/mL in 0.20 - 20.00 ng/mL range Results above 20.00 ng/mL are reported as 'Positive, Above the Limit of Quantification' Testing Performed by: [facility], [address] [place] [address] [place] [facility]. This test was developed and its performance characteristics determined by [facility]. It has not been cleared or approved [...] GENERAL ORDERABLES Final Result Performing Organization Address [facility] Co de Phone Number [facility] [place] [address] * CT Chest High Resolution WO Contrast [...] agrees with it. Electronically signed by: Tomy Augsut M.D. Narrative 06/05/2025 6:48 AM CDT EXAMINATION: [...] CDT 06/04/2025 3:19 PM CDT Narrative [facility] - 06/05/2025 4:35 PM CDT Testing performed by [facility]biology Laboratory ([phone]). Keith Alexander MD LAB MICROBIOLOGY - GENERAL ORDERABLES Final Result Performing Organization Address City/[facility]/ZIP Co de Phone Number [facility] [employer] [address] * Coccidioides antibody screen w/reflex Blood (06/04/2025 10:50 AM CDT) Coccidioides ab screen, ser Reactive Negative [place] [facility] Comment: Confirmatory testing by complement fixation and immunodiffusion has been ordered. ADDITIONAL INFORMATION This test has been modified from the nurse auditor's instructions. Its performance characteristics were determined by [facility] in a manner consistent with CLIA requirements. This test has not been cleared or approved by the U.S. Food and Drug Administration. Test Performed by: [facility] - [address] [address] [employer] Mechanic: Angeli Harper Ph.D.; CLIA# [id number] Blood 06/04/2025 10:5 0 AM CDT 06/04/2025 12:31 PM CDT Keith Alexander MD LAB MICROBIOLOGY - GENERAL ORDERABLES Final Result Performing Organization Address City/[facility]/ZIP Co de Phone Number [facility] [place] [address] [place] [facility] * Histoplasma Antibody Blood (06/04/2025 10:50 AM CDT) Pathologist [facility] Histoplasma Ab, yeast CF Negative Negative [facility] Lab Histoplasma Ab, Immunodiffusion Negative Negative [facility] Comment: A negative complement fixation and immunodiffusion (CF/ID) result does not exclude the diagnosis of histoplasmosis. Repeat testing by CF/ID in 1-2 weeks if clinically indicated. Test Performed by: [place] [address] [employer] Mechanic: Angeli Harper Ph.D.; CLIA# [id number] Blood 06/04/2025 10:5 0 AM CDT 06/04/2025 1:57 PM CDT Keith Alexander MD LAB MICROBIOLOGY - GENERAL ORDERABLES Final Result Performing Organization Address City/[facility] de Phone Number [facility] [place] [employer] [place] [address] [facility] Lab * Blastomyces antibody, EIA, serum Blood (06/04/2025 10:50 AM CDT) [facility] Blastomyces Antibody Negative Negative [facility] Comment: A single negative result does not exclude the diagnosis of blastomycosis. Repeat testing on a new sample in 7-14 days if clinically indicated. Test Performed by: [place] [address] [employer] Mechanic: Angeli Harper Ph.D.; CLIA# [id number] Blood 06/04/2025 10:5 0 AM CDT 06/04/2025 1:57 PM CDT Keith Alexander MD LAB MICROBIOLOGY - GENERAL ORDERABLES Final Result [facility] [place] [address] [facility] * Coccidioides antibodies (06/04/2025 10:50 AM CDT) Coccidioides ab comp fix Negative Negative [place] [facility] Coccidioides IgG ImmDiff Negative Negative [facility] Coccidioides IgM ImmDiff Negative Negative [facility] Comment: The EIA may be reactive prior to complement fixation and immunodiffusion (CompF/ImmDiff), or may be falsely-reactive. Repeat testing by CompF/ImmDiff in 2-3 weeks if clinically indicated. Test Performed by: [facility] [address] [place] [address] [employer] Mechanic: Angeli Harper Ph.D.; CLIA# [id number] Blood 06/04/2025 10:5 0 AM CDT 06/04/2025 12:31 PM CDT Keith Alexander MD LAB BLOOD ORDERABLES Final Result Performing Organization Address [facility] de Phone Number [facility] [place] [place] [address] [facility] * Cryptococcal Antigen, Serum Blood (06/04/2025 10:50 AM CDT) Pathologist [facility] Cryptococcus ag, Serum Negative Negative Comment: The [...] GENERAL ORDERABLES Final Result Performing Organization Address City/[facility] Co de Phone Number [facility] [place] [place] [address] * Aspergillus galactomannan antigen Blood (06/04/2025 10:50 AM CDT) Aspergillus galactomannan Ag <0.500 <0.5 Index [place] [facility] Comment: ADDITIONAL INFORMATION This is a qualitative test and the resulted index value is not indicative of disease severity. Serial testing is recommended for patients at high risk for invasive aspergillosis. This assay was performed using the FDA-cleared [employer] Aspergillus Galactomannan EIA. Test Performed by: [facility] [address] [place] [address] [employer] Mechanic: Angeli Harper Ph.D.; CLIA# [id number] Blood 06/04/2025 10:5 0 AM CDT 06/04/2025 12:42 PM CDT Keith Alexander MD LAB MICROBIOLOGY - GENERAL ORDERABLES Final Result [facility] [place] [address] [place] [facility] * (ABNORMAL) Blood gas, venous (06/04/2025 10:50 AM CDT) pH, Venous 7.37 7.32 - 7.43 PCO2, Venous 55(H) 40 - 50 mmHg [facility] PO2, Venous [address] [facility] Comment: Interpretive Data No Reference Range Established Current Interpretive Data was last revised on 2018. HCO3 Venous, Calculated 33(H) 20 - 30 mmol/L [facility] BE, venous 7 mmol/L [facility] Comment: Interpretive Data No Reference Range Established Current Interpretive Data was last revised on 2018. Blood 06/04/2025 10:5 0 AM CDT 06/04/2025 12:25 PM CDT Keith Alexander MD LAB BLOOD ORDERABLES Final Result [facility] [place] [address] * XR Chest 1 View (06/04/2025 6:30 [...] signed by: Salas De La Torre M.D. us Dianna Root MD IMG XR PROCEDURES Final [...] MD LAB BLOOD ORDERABLES Final Resu lt [facility] [place] [address] * (ABNORMAL) Differential, auto (06/04/2025 4:35 AM CDT) Neutrophil abs 6.28 1.50 - 6.50 K/cumm Imm gran abs 0.07 0.00 - 0.10 K/cumm [facility] Lymphocyte abs 0.88 0.80 - 3.30 K/cumm [facility] Monocyte abs 1.13(H) 0.20 - 0.80 K/cumm [facility] Eosinophil abs 0.47 0.00 - 0.50 K/cumm [facility] Basophil abs 0.02 0.00 - 0.10 K/cumm [facility] Neutrophil pct 71.0 % [facility] Comment: Interpretive Data Percent cell count reference ranges are not reported, since discordance with absolute values may lead to misinterpretation of CBC data. Current Interpretive Data was last revised on 2018. Imm gran pct 0.8 % [facility] Comment: Interpretive Data Percent cell count reference ranges are not reported, since discordance with absolute values may lead to misinterpretation of CBC data. Current Interpretive Data was last revised on 2018. Lymphocyte pct 9.9 % [facility] Comment: Interpretive Data Percent cell count reference ranges are not reported, since discordance with absolute values may lead to misinterpretation of CBC data. Current Interpretive Data was last revised on 2018. Monocyte pct 12.8 % [facility] Comment: Interpretive Data Percent cell count reference ranges are not reported, since discordance with absolute values may lead to misinterpretation of CBC data. Current Interpretive Data was last revised on 2018. Eosinophil pct 5.3 % [facility] Comment: Interpretive Data Percent cell count reference ranges are not reported, since discordance with absolute values may lead to misinterpretation of CBC data. Current Interpretive Data was last revised on 2018. Basophil pct 0.2 % [facility] Comment: Interpretive Data Percent cell count reference ranges are not reported, since discordance with absolute values may lead to misinterpretation of CBC data. Current Interpretive Data was last revised on 2018. Blood 06/04/2025 4:35 AM CDT 06/04/2025 5:02 AM CDT us Dianna Root MD LAB BLOOD ORDERABLES Final Resu lt [facility] [place] [address] * (ABNORMAL) Pro B-type natriuretic peptide (06/04/2025 [...] well as advanced age. - References: 1. Milday SOTO et.al. Eur Heart J. 2006:27:330-337. 2. Ousmane RW, Arianna AM. J. AM Eleanor Cardiol: Cardiovasc Imag. 2009;2: 216- 225. Interpretive Data Last Revised Date: 2018. Blood 06/04/2025 4:35 AM CDT 06/04/2025 5:01 AM CDT us Dianna Root MD LAB BLOOD ORDERABLES Final Resu lt [facility] Department [place] [address] * (ABNORMAL) CBC with auto differential (06/04/2025 4:35 AM CDT) WBC 8.85 3.80 - 9.90 K/cumm Hgb 8.3(L) 13.0 - 17.5 g/dL [facility] Hct 26.7(L) 38.9 - 50.3 % [facility] Plt 219 150 - 400 K/cumm [facility] MPV 10.3 9.1 - 12.[address] [facility] RBC 2.94(L) 4.30 - 5.80 M/cumm [facility] MCV 90.8 81.3 - 96.[address] [facility] MCH 28.2 27.1 - 33.[address] [facility] MCHC 31.1(L) 32.3 - 35.7 g/dL [facility] RDW CV 15.3(H) 11.1 - 14.9 % [facility] RDW SD 51.0(H) 35.7 - 48.[address] [facility] NRBC abs 0.00 0.00 - 0.01 K/cumm [facility] Blood 06/04/2025 4:35 AM CDT 06/04/2025 5:02 AM CDT Dianna Root MD LAB BLOOD ORDERABLES Final Resu lt Performing Organization Address [facility] Co de Phone Number [facility] [place] [address] * (ABNORMAL) Protime-INR (06/04/2025 4:35 AM CDT) PT 20.1(H) 9.7 - 13.0 sec INR 1.84(H) 0.90 - 1.[address] [facility] Comment: Interpretive data Oral anticoagulant therapeutic ranges: Venous thromboembolism prophylaxis or treatment: 2.0-3.0 CARDIOLOGY Standard range: 2.0-3.0 High-intensity range: 2.5-3.5 Refer to indication-specific guidelines for appropriate target ranges for prosthetic heart valve replacement. Current interpretive data was last revised on 2019. Blood 06/04/2025 4:35 AM CDT 06/04/2025 5:06 AM CDT Dianna Root MD LAB BLOOD ORDERABLES Final Resu lt Performing Organization Address [facility] de Phone Number [facility] [place] [address] * Phosphorus (06/04/2025 4:35 AM CDT) Phosphorus, pl 2.6 2.3 - 4.5 mg/dL Blood 06/04/2025 4:35 AM CDT 06/04/2025 5:01 AM CDT Dianna Root MD LAB BLOOD ORDERABLES Final Resu lt Performing Organization Address [facility] Co de Phone Number [facility] [place] [employer] [address] * Magnesium (06/04/2025 4:35 AM CDT) Magnesium 1.8 1.4 - 2.5 mg/dL Blood 06/04/2025 4:35 AM CDT 06/04/2025 5:01 AM CDT Dianna Root MD LAB BLOOD ORDERABLES Final Resu lt [facility] [place] [address] * (ABNORMAL) Comprehensive metabolic panel (06/04/2025 4:35 AM CDT) Pathologist [facility] Sodium 135 135 - 145 mmol/L Potassium, pl 4.4 3.3 - 4.9 mmol/L [facility] Chloride 99 97 - 110 mmol/L [facility] CO2 29 22 - 32 mmol/L [facility] Anion gap 7 2 - 15 mmol/L [facility] BUN 23 6 - 25 mg/dL [facility] Creatinine 1.19 0.80 - 1.30 mg/dL [facility] Glucose 109 70 - 199 mg/dL [facility] Comment: Interpretive Data Fasting glucose >/= 126 [...] 2022. Calcium 9.3 8.5 - 10.3 mg/dL [facility] Bilirubin, total 0.3 0.1 - 1.2 mg/dL [facility] Protein, pl 6.6 6.5 - 8.5 g/dL [facility] Albumin 2.9(L) 3.5 - 5.0 g/dL [facility] Alk phos 228(H) 40 - 130 Units/L [facility] ALT 20 7 - 55 Units/L [facility] AST 42 10 - 50 Units/L [facility] Blood 06/04/2025 4:35 AM CDT 06/04/2025 5:01 AM CDT us Dianna Root MD LAB BLOOD ORDERABLES Final Resu lt Performing Organization Address [facility] Co de Phone Number [facility] [place] [address] * Legionella antigen Urine (06/04/2025 3:22 AM CDT) Pathologist [facility] Legionella Ag Negative Negative Comment: Interpretive Data This test detects only Legionella pneumophila serogroup 1 antigen. Testing performed by [facility] ([phone]). Current interpretive data was last revised on 2020. Urine 06/04/2025 3:22 AM CDT 06/04/2025 5:30 AM CDT us Dianna Root MD LAB MICROBIOLOGY - GENERAL ORDE RABLES Final Result Performing Organization Address [facility] de Phone Number [facility] [place] [address] * ECG 12 lead (06/04/2025 3:21 AM CDT) Ventricular Rate EKG/Min 74 BPM [facility] Atrial Rate 74 BPM [facility] LA-Interval (MSEC) 196 ms [facility] QRS-Interval (MSEC) 114 ms [facility] QT-Interval (MSEC) 406 ms [facility] QTc 450 ms [facility] P Bryce 34 degrees [facility] R Bryce -19 degrees [facility] T Bryce 16 degrees [facility] Diagnosis Normal sinus rhythm Incomplete right bundle branch block Borderline ECG No previous ECGs available Confirmed by SERENITY ARCHULETA M.D ([id number]) on 06/05/2025 8:59:03 AM [facility] 06/04/2025 3:21 AM CDT 06/05/2025 8:59 AM CDT Dianna Root MD ECG ORDERABLES Final Result [facility] * Respiratory pathogen panel Nasopharyngeal (06/04/2025 2:58 AM CDT) Pathologist [facility] Influenza A RNA Not Detected Not Detected Influenza B RNA Not Detected Not Detected [facility] RSV RNA Not Detected Not Detected [facility] COVID-19 RNA Not Detected Not Detected [facility] Coronavirus 229E RNA Not Detected Not Detected [facility] Coronavirus HKU1 RNA Not Detected Not Detected [facility] Coronavirus NL63 RNA Not Detected Not Detected [facility] Coronavirus OC43 RNA Not Detected Not Detected [facility] Adenovirus DNA Not Detected Not Detected [facility] Metapneumovirus RNA Not Detected Not Detected [facility] Rhinovirus/Enterov irus RNA Not Detected Not Detected [facility] Parainfluenza 1 RNA Not Detected Not Detected [facility] Parainfluenza 2 RNA Not Detected Not Detected [facility] Parainfluenza 3 RNA Not Detected Not Detected [facility] Parainfluenza 4 RNA Not Detected Not Detected [facility] B. pertussis DNA Not Detected Not Detected [facility] B. parapertussis DNA Not Detected Not Detected [facility] C. pneumoniae DNA Not Detected Not Detected [facility] M. pneumoniae DNA Not Detected Not Detected [facility] Nasopharyngeal 06/04/2025 2: 58 AM CDT 06/04/2025 3:29 AM CDT Narrative [facility] - 06/04/2025 4:44 AM CDT Is the Patient experiencing symptoms consistent with COVID?->No Surveillance testing for transplant patient?->No Interpretive Data The [employer] FilmArray Respiratory Panel (RP2.1) assay is a [...] assay has FDA clearance for testing of MATERIALS MANAGER swabs. The performance of additional specimen types has been assessed by the performing laboratory. The performance characteristics of this assay have been determined by [facility] Molecular Infectious Disease Laboratory. Current interpretive data was last revised on 22. Dianna Root MD LAB MICROBIOLOGY - GENERAL TONY LIN Final Result [facility] [place] [address] * MRSA Only (Staphylococcus aureus) Culture Nasal (06/04/2025 2:53 AM CDT) Report Final Report: Negative Nasal 06/04/2025 2:53 AM CDT 06/04/2025 3:29 AM CDT Narrative [facility] - 06/05/2025 6:58 AM CDT Testing performed by [facility] ([phone]). Dianna Root MD LAB MICROBIOLOGY - GENERAL SUMMERDerek KELLERKATIE Final Result Performing Organization Address City/[facility] Co de Phone Number [facility] [place] [address] * Glucose, random (Outreach) (05/02/2025 10:25 AM CDT) [facility] Glucose 107 70 - 199 mg/dL Comment: [...] ORDERABLES F inal Result Performing Organization Address [facility] Co de Phone Number [facility] [place] [address] * (ABNORMAL) eGFR (05/02/2025 10:25 AM CDT) [facility] eGFR 35(L) >=60 mL/min/1. 73 m2 Comment: [...] 5 AM CDT 05/02/2025 2:19 PM CDT Gladys Larson NP LAB BLOOD ORDERABLES F inal Result [facility] [place] [address] * (ABNORMAL) Differential, auto (05/02/2025 10:25 AM CDT) Neutrophil abs 6.97(H) 1.50 - 6.50 K/cumm Imm gran abs 0.13(H) 0.00 - 0.10 K/cumm [facility] Lymphocyte abs 1.24 0.80 - 3.30 K/cumm [facility] Monocyte abs 0.99(H) 0.20 - 0.80 K/cumm [facility] Eosinophil abs 0.52(H) 0.00 - 0.50 K/cumm [facility] Basophil abs 0.04 0.00 - 0.10 K/cumm [facility] Neutrophil pct 70.5 % [facility] Comment: Interpretive Data Percent cell count reference ranges are not reported, since discordance with absolute values may lead to misinterpretation of CBC data. Current Interpretive Data was last revised on 2018. Imm gran pct 1.3 % [facility] Comment: Interpretive Data Percent cell count reference ranges are not reported, since discordance with absolute values may lead to misinterpretation of CBC data. Current Interpretive Data was last revised on 2018. Lymphocyte pct 12.5 % [facility] Comment: Interpretive Data Percent cell count reference ranges are not reported, since discordance with absolute values may lead to misinterpretation of CBC data. Current Interpretive Data was last revised on 2018. Monocyte pct 10.0 % [facility] Comment: Interpretive Data Percent cell count reference ranges are not reported, since discordance with absolute values may lead to misinterpretation of CBC data. Current Interpretive Data was last revised on 2018. Eosinophil pct 5.3 % [facility] Comment: Interpretive Data Percent cell count reference ranges are not reported, since discordance with absolute values may lead to misinterpretation of CBC data. Current Interpretive Data was last revised on 2018. Basophil pct 0.4 % [facility] Comment: Interpretive Data Percent cell count reference ranges are not reported, since discordance with absolute values may lead to misinterpretation of CBC data. Current Interpretive Data was last revised on 2018. Blood 05/02/2025 10:2 5 AM CDT 05/02/2025 2:09 PM CDT Gladys Larson NP LAB BLOOD ORDERABLES F inal Result [facility] [place] [address] * (ABNORMAL) Comprehensive metabolic panel, without glucose (Outreach) (05/02/2025 10:25 AM CDT) Sodium 134(L) 135 - 145 mmol/L Potassium, pl 5.8(H) 3.3 - 4.9 mmol/L [facility] Chloride 100 97 - 110 mmol/L [facility] CO2 27 22 - 32 mmol/L [facility] Anion gap 7 2 - 15 mmol/L [facility] BUN 21 6 - 25 mg/dL [facility] Creatinine 1.90(H) 0.80 - 1.30 mg/dL [facility] Calcium 9.6 8.5 - 10.3 mg/dL [facility] Protein, pl 7.5 6.5 - 8.5 g/dL [facility] Albumin 3.8 3.5 - 5.0 g/dL [facility] Bilirubin, total 0.2 0.1 - 1.2 mg/dL [facility] Alk phos 227(H) 40 - 130 Units/L [facility] AST 25 10 - 50 Units/L [facility] ALT 19 7 - 55 Units/L [facility] Blood 05/02/2025 10:2 5 AM CDT 05/02/2025 2:09 PM CDT us Gladys Larson NP LAB BLOOD ORDERABLES F inal Result [facility] [place] [address] * (ABNORMAL) CBC with auto differential (05/02/2025 10:25 AM CDT) Pathologist [facility] WBC 9.89 3.80 - 9.90 K/cumm Hgb 10.0(L) 13.0 - 17.5 g/dL [facility] Hct 32.2(L) 38.9 - 50.3 % [facility] Plt 322 150 - 400 K/cumm [facility] MPV 11.1 9.1 - 12.[address] [facility] RBC 3.41(L) 4.30 - 5.80 M/cumm [facility] MCV 94.4 81.3 - 96.[address] [facility] MCH 29.3 27.1 - 33.[address] [facility] MCHC 31.1(L) 32.3 - 35.7 g/dL [facility] RDW CV 14.3 11.1 - 14.9 % [facility] RDW SD 48.4(H) 35.7 - 48.[address] [facility] NRBC abs 0.00 0.00 - 0.01 K/cumm [facility] Blood 05/02/2025 10:2 5 AM CDT 05/02/2025 2:09 PM CDT Gladys Larson NP LAB BLOOD ORDERABLES F inal Result [facility] [place] [address] * CT Body Outside Consult (05/02/2025 10:24 [...] images may or may not represent the [place] source data set and thus may contain changes that may lower the accuracy of this second-opinion interpretation. Electronically signed by: Adele Shipman M.D. Narrative 05/02/2025 10:38 AM CDT EXAMINATION: RADIOLOGY CONSULTATION ON OUTSIDE IMAGING STUDY STUDY INITIALLY PERFORMED: 04/26/2025 at [facility]. TYPE OF STUDY: Multiple CT images of [...] IMAGING STUDY STUDY INITIALLY PERFORMED: 04/26/2025 at [facility]. TYPE OF STUDY: Multiple CT images of [...] images may or may not represent the [place] source data set and thus may contain changes that may lower the accuracy of this second-opinion interpretation. Electronically signed by: Adele Shipman M.D. Lukas Adams MD IM CT PROCEDURES Final Resu lt * CT Body Outside Reference (05/02/2025 10:17 AM CDT) Impressions [facility] - 05/02/2025 10:17 AM CDT These images are for Reference purposes only and have not been reviewed by [facility] Radiology. There will be no report generated by a [facility] Radiologist. Narrative [facility] - 05/02/2025 10:17 AM CDT EXAMINATION: Images For Reference Purposes Only Lukas Adams MD IM CT PROCEDURES Final Resu lt [facility] from Last 3 Months Additional Health Concerns Active Problems Noted Date Diagnosed Date Initial Follow-Up Appointment 06/08/2025 Infection Onset Date Last Indicated Tuberculosis (rule out) 06/04/2025 06/04/20 25 Insurance [facility] MEDICARE ADVANTAGE [facility] MED[facility] Address: [address] [address] [place] [address] MEDICARE ADVANTAGE [facility] MEDICARE Address: [address] [place], [place] [id number] MEDICARE ADVANTAGE [facility] MEDICARE Address: [address] [place] [id number] Advance Directives For more information, please contact: [phone] * Full Code (Latest Code Status on File) Date Activated Date Inactivated Comments 06/04/2025 2:17 AM 06/07/2025 7:14 PM Care Teams Slipcover Cutter Relationship Specialty Start Date End Date Naveed Mcintosh MD [address] [place] [address] PCP - General Family Medicine 10/07/19 Salas Gottlieb MD [address] [place] [address] Referring Physician Critical Care Med 06/02/25 Yarelis Rachel, CAFETERIA TABLE ATTENDANT [address] [facility] ([facility]) Mailstop [phone] [place] [address] SHOP Outpatient Director Sales 06/08/25
--- OUTSIDE RECORDS SUMMARY | 2025-06-15 13:54 | XMS_ITS | Encounter Summary ---
Author Organization [facility] Address [address] [place] [address] Phone Care Team Providers Care Disbursing Agent Name Role Phone Naveed Mcintosh MD Primary Care Prov ider Salas Gottlieb MD Unavailable [phone] Yarelis Rachel FLUE LINING DIPPER Unavailable [phone] Encounter Details Date Type Department Care Team (Late st Contact Info) Description 06/13/2025 Telephone [facility] Infectious Diseases [address] [place] [address] [place] [id number] Alyssa Chen Social History Tobacco Use Types Packs/Day Years Used Date Smoking Tobacco: Former Cigarettes 1.5 65 0 [birth year]/12/1957 - 09/19/2018 Smokeless Tobacco: Never Comments:Quit 08/2019 Alcohol Use Standard Drinks/Week Comments Not Currently 0 (1 standard drink = 0.6 oz pur e alcohol) [facility] Utilities Answer Date Recorded In [...] often do you attend chur ch or jain services? Never 06/08/2025 Do you belong to any clubs o r organizations such as methodist groups, unions, fraternal or athletic groups, or [...] time in the past 12 m [facility], were you homeless or living in a [facility] (including now)? No 06/08/2025 Personal Safety Answer Date Recorded Have you ever been in or are you currently in a harmful physical or emotional relationship or is someone making you feel afraid or unsafe? Denies 06/04/2025 Sex and Gender Information Value Date Recorded Sex Assigned at Not on file Legal Sex Male 9:37 AM CLOTH HAULER Gender Identity Male 11/26/2019 3:10 PM CLOTH HAULER Sexual Orientation Not on file documented as of this encounter Miscellaneous Notes * Telephone Encounter - Daniella Leach - 06/14/2025 9:45 AM CDT Return call, [facility] also sent mychart msg * Telephone Encounter - Alyssa Chen - 06/13/2025 11:36 AM CDT Patient wanting to know if any of his medications can cause hearing loss and that he is still having shortness of breath. P:[phone] documented in this encounter Plan of Treatment [...] documented as of this encounter Care Teams Disbursing Agent Relationship Specialty Start Date End Date Naveed Mcintosh MD [address] [place] [address] PCP - General Family Medicine 10/07/19 Salas Gottlieb MD [address] [place] [address] Referring Physician Critical Care Med 06/02/25 Yarelis Rachel LCSW [address] [facility] ([facility]) Mailstop [phone] [place] [address] SHOP Outpatient Insulator Cutter And Former 06/08/25 documented as of this encounter
--- OUTSIDE RECORDS SUMMARY | 2025-06-15 13:54 | XMS_ITS | Encounter Summary ---
Author Organization [facility] Address [address] [place] [address] Phone Care Team Providers Care Supervisor [employer] Name Role Phone Naveed Mcintosh MD Primary Care Prov ider Salas Gottlieb MD Unavailable [phone] Yarelis Rachel ECHO TECH Unavailable [phone] Encounter Details Date Type Department Care Team (Late st Contact Info) Description 05/30/[address] [facility] Infectious Diseases [address] [place] [address] [place] [id number] Enma Tate RMA Social History Tobacco Use Types Packs/Day Years Used Date Smoking Tobacco: Former Cigarettes 1.5 65 0 03/12/1957 - 09/19/2018 Smokeless Tobacco: Never Comments:Quit 08/2019 Alcohol Use Standard Drinks/Week Comments Not Currently 0 (1 standard drink = 0.6 oz pur e alcohol) Sex and Gender Information Value Date Recorded Sex Assigned at Not on file Legal Sex Male 9:37 AM COMPOUNDER [employer] Gender Identity Male 11/26/2019 3:10 PM COMPOUNDER [employer] Sexual Orientation Not on file documented as of this encounter Miscellaneous Notes * Telephone Encounter - Daniella Leach - 05/30/2025 8:58 AM CDT Spoke with pt, stated his O2 sats drop when he walks to the bathroom at night. He spoke to his it disaster recovery manager who recommended he go to the ER for evaluation. Advised to follow it disaster recovery manager. Pt will go to [facility] * Telephone Encounter - Enma Tate RMA - 05/30/2025 8:22 AM CDT Pt wants to go to the ER for sob, his o2 is 82%, hx of COPD. He wants to speak w/ the nurse. Pleasecall [phone] documented in this encounter Plan of Treatment Not on file documented as of this encounter Visit Diagnoses Not on filedocumented in this encounter Additional Health Concerns Infection Onset Date Last Indicated Resolved Time Tuberculosis (rule out) 06/04/2025 06/04/2025 documented as of this encounter Care Teams Supervisor [employer] Relationship Specialty Start Date End Date Naveed Mcintosh MD [address] [place] [address] PCP - General Family Medicine 10/07/19 Salas Gottlieb MD [address] [place] [address] Referring Physician Critical Care Med 06/02/25 Yarelis Rachel LCSW [address] [facility] ([facility]) Mailstop [phone] [place] [address] SHOP Outpatient Softball Coach 06/08/25 documented as of this encounter
--- OUTSIDE RECORDS SUMMARY | 2025-06-15 13:54 | XMS_ITS | Encounter Summary ---
Author Organization [facility] Address [address] [place] [address] Phone Care Team Providers Care Cashier Host/Hostess Name Role Phone Naveed Mcintosh MD Primary Care Prov ider Salas Gottlieb MD Unavailable [phone] Yarelis Rachel FLIGHT ATTENDANT/INFLIGHT MANAGER Unavailable [phone] Encounter Details Date Type Department Care Team (Late st Contact Info) Description 06/15/[address] [facility] Infectious Diseases [address] [place] [address] [place] [phone] Daniella Leach Social History Tobacco Use Types Packs/Day Years Used Date Smoking Tobacco: Former Cigarettes 1.5 65 0 03/12/1957 - 09/19/2018 Smokeless Tobacco: Never Comments:Quit 08/2019 Alcohol Use Standard Drinks/Week Comments Not Currently 0 (1 standard drink = 0.6 oz pur e alcohol) [facility] Utilities Answer Date Recorded In the [...] often do you attend chur ch or restorationist services? Never 06/08/2025 Do you belong to any clubs o r organizations such as holiness groups, unions, fraternal or athletic groups, or [...] any time in the past 12 m [facility], were you homeless or living in a group home (including now)? No 06/08/2025 Personal Safety Answer Date Recorded Have you ever been in or are you currently in a harmful physical or emotional relationship or is someone making you feel afraid or unsafe? Denies 06/04/2025 Sex and Gender Information Value Date Recorded Sex Assigned at Not on file Legal Sex Male 9:37 AM FUNDRAISING MANAGER Gender Identity Male 11/26/2019 3:10 PM FUNDRAISING MANAGER Sexual Orientation Not on file documented as of this encounter Miscellaneous Notes * Telephone Encounter - Daniella Leach - 06/15/2025 11:18 AM CDT Return call, advised ER. * Telephone Encounter - Gladys Larson NP - 06/15/2025 11:02 AM CDT He needs to go to the ER * Telephone Encounter - Daniella Leach - 06/15/2025 10:45 AM CDT Pt called stating he is having a hard time catching his breath when he gets up to the bathroom, or to walk around, he is on 4-5L O2 and he drops below 80%. He is using his inhalers with some relief. Do you think back to the ER for eval? He is taking his abx, and has appt 06/27 documented in this encounter Plan of Treatment [...] documented as of this encounter Care Teams Cashier Host/Hostess Relationship Specialty Start Date End Date Naveed Mcintosh MD [address] [place] [address] PCP - General Family Medicine 10/07/19 Salas Gottlieb MD [address] [place] [address] Referring Physician Critical Care Med 06/02/25 Yarelis Rachel, FLIGHT ATTENDANT/INFLIGHT MANAGER [address] [facility] ([facility] Mailstop [phone] [place] [address] SHOP Outpatient Tracer Lathe Set Up Operator 06/08/25 documented as of this encounter
[2025-06-15 14:17] LABS: NT Pro B Type Natriuretic Pept 1810 pg/mL (19.9-100)
[2025-06-15] MEDS: FUROSEMIDE INJ 40 MG/4 ML VIAL IV PUSH (14:42)
[2025-06-15] MEDS: AZITHROMYCIN IV 500 MG in SODIUM CHLORIDE 0.9% IV 250 ML IVPB (14:42)
[2025-06-15] MEDS: cefTRIAXone 1 GM in SODIUM CHLORIDE 0.9% IV 50 ML 100 ML IVPB (14:42)
--- NOTE | 2025-06-15 16:27 | ECG_ITS ---
Test Date: 2025-06-15 16:30:39 Measurements Intervals [place] Rate: 90 P: 48 NE: 207 QRS: -30 QRSD: 108 T: 9 QT: 404 QTc: 496 Interpretive Statements SINUS RHYTHM POSSIBLE LEFT ATRIAL ENLARGEMENT [-0.1mV P-WAVE IN V1/V2] BORDERLINE LEFT AXIS DEVIATION [QRS AXIS < -20] INCOMPLETE RIGHT BUNDLE BRANCH BLOCK [90+ ms QRS DURATION, TERMINAL R IN V1/V2, 40+ ms S IN I/aVL/V4/V5/V6] Compared to ECG 06/15/2025 13:04:12 Sinus tachycardia no longer present Electronically Signed On 06-16-2025 16:03:30 CDT by Bert Earl M.D.
[2025-06-15 16:40] LABS: Troponin I 0.014 ng/mL (0.000-0.034)
--- NOTE | 2025-06-15 17:39 | P.HP_ITS ---
H&P: HPI History of Present Illness Date/Time: 06/15/25 17:39 Chief Complaint: Shortness of breath Narrative: 80-year-old male past medical history of CHF with reduced ejection fraction, CKD stage 3, COPD, NSTEMI, polio as a child who was recently diagnosed with SNEHA pneumonia presents the hospital with shortness of breath hypoxia. Patient was admitted on 05/30/2025 for shortness of breath found to have pneumonia and with the request pulmonology was transferred to [facility] where he was treated for SNEHA pneumonia and discharged home oxygen. Today he was on 4 L oxygen at home on hypoxic in the 70s whenever EMS found him. His prepleater at [facility] has been contacted and has accepted admission when bed is available however it will be a couple days. Recommendations to keep the patient on his home antibiotic medication for SNEHA. Lab work shows hemoglobin of 9.5 which is around baseline, ABG shows pH is 7.49, pCO2 of 34, PO2 of 76, bicarb 26, on 4 L nasal cannula, sodium 135, alkaline phos of 137, troponin 0.051 followed by 0.014, BUN of 1810, chest x-ray shows worsening bibasilar airspace disease right greater than left pulmonary edema versus pneumonia. EKG was sinus rhythm incomplete right bundle-branch block, QTC 496. Patient given azithromycin, Rocephin, Lasix albuterol and Solu-Medrol in emergency room. Plan to admit patient in house for SNEHA pneumonia until bed is available at [facility]. Review of Systems Review of Systems: 12 systems were reviewed and are negativ e except for as per HPI. [facility]LY [facility] Past Medical History Medical History (Updated 06/15/25 @ 18:24 by Ina Cortes, ARCHITECTURE ANALYST) Heart failure with mildly reduced ejection fraction Chronic pulmonary aspergillosis Major depressive disorder, recurrent, mild Left foot drop Chronic kidney disease, stage 3 Spinal stenosis, lumbar region without neurogenic claudication Ischemic cardiomyopathy Echocardiogram 09/2021: Mildly reduced left ventricular systolic function EF of 45-50%, grade 1 diastolic dysfunction, inferior wall inferior septal wall basal inferior wall and mid inferior lateral wall hypokinesis with mild left atrial and large SVT (supraventricular tachycardia) 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 History of tobacco use Polio (1951) Other chronic pain Aortic stenosis Mild - Echo 05/15/2022 NSTEMI (non-ST elevated myocardial infarction) (08/2019) Atherosclerotic heart disease of [place] coronary artery without angina pectoris Abdominal aortic aneurysm, without rupture Seen on CT scan on 02/09/2018 Restless legs syndrome Surgical History Surgical History History of tonsillectomy and adenoidectomy History of repair of rotator cuff bilateral History of colonoscopy with polypectomy History of bowel resection due to obstruction Presence of coronary angioplasty implant and graft History of coronary artery stent placement X2 History of mandibular surgery (1986) reconstructive surgery right mandible related to cancer Family History Family History Mother Diabetes mellitus Acute myocardial infarction Father Colon cancer COPD (chronic obstructive pulmonary disease) Sibling Colon cancer Acute myocardial infarction Lung cancer COPD (chronic obstructive pulmonary disease) Sibling COPD (chronic obstructive pulmonary disease) Sibling Congestive heart failure Sibling Dementia Social History Social History Social History: Surrogate medical decision maker: Yessi Morgan, daughter. Code status: Full code. But he states he would not want to be on a ventilator long-term have a tracheostomy or feeding tube. Smoking packs per day: 1.5 Smoking cigarettes per day: 30.0 Years smoked: 55 Smoking pack-years: 82.50 Smoking status: Former smoker Tobacco type: cigarettes Second hand tobacco smoke exposure: No Alcohol intake: never Substance use: never Substance use type: does not use Other substance usage details: quit alcohol in 2010 Last use: Last alcohol use 2010 Do You Feel Safe in your Home?: Yes Lack of Transportation: No Lack of Food: Never True Current Housing: I Have Housing Concerned About Future Housing: No Difficulty Paying Gas/Electric Bills: No Difficulty Paying for Meds: No Currently Unemployed: No Education: High School Diploma/GED Difficulty w/ Childcare or Family Care: No Living arrangements: with family Additional living arrangements comments: . Lives in [place] with son and [id number]. 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: retired Additional occupation/education comments: [employer] Spiritual care concerns: No Agree to blood products: Yes Meds Home Medications and Allergies Home Medications ?Medication ?Instructions ?Recorded ?Confirmed ?Type acetaminophen 500 mg tablet 1,000 mg PO Q6H PRN Pain 03/18/23 06/15/25 History (Tylenol Extra Strength) aspirin 81 mg tablet,delayed 81 mg PO DAILY #90 tabs 06/15/23 06/15/25 Rx release fenofibrate 160 mg tablet 160 mg PO DAILY #90 tabs 09/16/23 06/15/25 Rx nebulizer accessories #1 ea 04/12/24 06/15/25 Rx nebulizer and compressor #1 ea 04/12/24 06/15/25 Rx linaclotide 290 mcg capsule See Rx Instructions .Route 04/28/24 06/15/25 Rx (Linzess) .COMPLEX #90 caps albuterol sulfate 90 mcg/actuation 2 puff inhalation Q4H PRN 10/03/24 06/15/25 Rx aerosol inhaler Shortness Of Breath Or Wheezing #8.5 grams baclofen 10 mg tablet 10 mg PO Q12H PRN muscle spasm 12/02/24 06/15/25 History albuterol sulfate 2.5 mg/3 mL 2.5 mg (3 mL) inhalation Q4H PRN 12/08/24 06/15/25 Rx (0.083 %) solution for nebulization shortness of breath or wheezing #90 mL nitroglycerin 0.4 mg sublingual 0.4 mg sublingual Q5M PRN chest 12/08/24 06/15/25 Rx tablet pain #25 tabs bupropion HCl 150 mg tablet,12 hr 150 mg PO BID #180 tabs 12/28/24 06/15/25 Rx sustained-release metoprolol succinate 50 mg 50 mg PO HS #90 tabs 12/29/24 06/15/25 Rx tablet,extended release 24 hr lorazepam 0.5 mg tablet 0.5 mg PO BID PRN anxiety #60 tabs 03/21/25 06/15/25 Rx tobramycin 0.3 %-dexamethasone 0.1 1 drp EACH EYE QID #10 mL 04/05/25 06/15/25 Rx % eye drops,suspension sulindac 200 mg tablet 200 mg PO BID #180 tabs 04/07/25 06/15/25 Rx atorvastatin 80 mg tablet 80 mg PO DAILY #90 tabs 04/11/25 06/15/25 Rx sertraline 50 mg tablet 50 mg PO DAILY #90 tabs 04/20/25 06/15/25 Rx benzonatate 200 mg capsule See Rx Instructions .Route 04/26/25 06/15/25 Rx .COMPLEX #90 caps glycopyrrolate 9 mcg-formoterol 2 puff inhalation BID #10.7 grams 04/28/25 06/15/25 Rx 4.8 mcg HFA aerosol inhaler (Bevespi Aerosphere) acyclovir 400 mg tablet 400 mg PO TID #21 tabs 05/03/25 06/15/25 Rx hydroxyzine HCl 25 mg tablet 25 mg PO QID PRN anxiety #50 tabs 05/19/25 06/15/25 Rx trazodone 100 mg tablet 100 mg PO HS Insomnia #90 tabs 05/24/25 06/15/25 Rx azithromycin 500 mg tablet 500 mg PO DAILY 06/15/25 06/15/25 History budesonide 160 mcg-glycopyr 9 2 inh inhalation .q12hr 06/15/25 06/15/25 History mcg-formot 4.8 mcg/actuation HFA inhaler (Breztri Aerosphere) esomeprazole magnesium 20 mg 40 mg PO DAILY 06/15/25 06/15/25 History capsule,delayed release ethambutol 400 mg tablet 1,200 mg PO DAILY 06/15/25 06/15/25 History fenofibrate 160 mg tablet 160 mg PO DAILY 06/15/25 06/15/25 History furosemide 20 mg tablet 40 mg PO DAILY 06/15/25 06/15/25 History levofloxacin 750 mg tablet 750 mg PO DAILY 06/15/25 06/15/25 History losartan 25 mg tablet 25 mg PO DAILY 06/15/25 06/15/25 History morphine 30 mg tablet,extended 30 mg PO Q12H PRN pain 06/15/25 06/15/25 History release rifabutin 150 mg capsule 300 mg PO DAILY 06/15/25 06/15/25 History tamsulosin 0.4 mg capsule 0.4 mg PO DAILY 06/15/25 06/15/25 History Allergies Allergy/AdvReac Type Severity Reaction Status Date / Time clonazepam AdvReac Severe Drowsy Verified 05/30/25 19:29 roflumilast (From [facility]) AdvReac Severe Diarrhea Verified 05/30/25 19:29 Vital Signs Vital Signs - 24 hr 06/15/25 13:00 06/15/25 13:03 06/15/25 13:03 Temperature 98.8 F Pulse Rate 103 H 105 H Respiratory Rate 16 Blood Pressure 126/62 Pulse Oximetry 95 95 93 Oxygen Delivery Nasal Cannula Nasal Cannula Oxygen Flow Rate 4 4 06/15/25 13:04 06/15/25 13:27 06/15/25 13:30 Temperature Pulse Rate 104 H 100 95 Respiratory Rate 15 15 19 Blood Pressure 126/62 Pulse Oximetry 96 95 93 Oxygen Delivery Nasal Cannula Oxygen Flow Rate 4 06/15/25 13:30 06/15/25 13:36 06/15/25 13:45 Temperature Pulse Rate 99 93 96 Respiratory Rate 25 H 20 24 H Blood Pressure Pulse Oximetry 96 96 Oxygen Delivery Oxygen Flow Rate 06/15/25 13:46 06/15/25 14:00 06/15/25 14:15 Temperature Pulse Rate 97 96 102 H Respiratory Rate 22 H 19 21 H Blood Pressure 100/53 L Pulse Oximetry 96 96 Oxygen Delivery Oxygen Flow Rate 06/15/25 14:15 06/15/25 14:17 06/15/25 14:30 Temperature Pulse Rate 100 101 H 98 Respiratory Rate 18 19 22 H Blood Pressure 100/53 L 127/68 Pulse Oximetry 96 96 97 Oxygen Delivery Oxygen Flow Rate 06/15/25 14:30 06/15/25 14:32 06/15/25 14:45 Temperature Pulse Rate 99 97 99 Respiratory Rate 16 17 20 Blood Pressure 127/68 101/57 L Pulse Oximetry 99 95 96 Oxygen Delivery Oxygen Flow Rate 06/15/25 14:45 06/15/25 14:46 06/15/25 15:00 Temperature Pulse Rate 98 98 100 Respiratory Rate 19 18 25 H Blood Pressure 101/57 L Pulse Oximetry 95 97 95 Oxygen Delivery Oxygen Flow Rate 06/15/25 15:02 06/15/25 15:15 06/15/25 15:16 Temperature Pulse Rate 98 99 98 Respiratory Rate 22 H 18 23 H Blood Pressure 103/56 L 104/54 L Pulse Oximetry 98 96 97 Oxygen Delivery Oxygen Flow Rate 06/15/25 15:30 06/15/25 15:31 06/15/25 15:45 Temperature Pulse Rate 96 96 90 Respiratory Rate 19 24 H 14 Blood Pressure 107/56 L Pulse Oximetry 96 97 98 Oxygen Delivery Oxygen Flow Rate 06/15/25 15:46 06/15/25 16:00 06/15/25 16:01 Temperature Pulse Rate 90 90 92 Respiratory Rate 14 26 H 12 Blood Pressure 98/54 L 102/56 L Pulse Oximetry 96 98 99 Oxygen Delivery Oxygen Flow Rate 06/15/25 16:15 06/15/25 16:16 06/15/25 16:30 Temperature Pulse Rate 93 92 91 Respiratory Rate 15 16 21 H Blood Pressure 126/58 L Pulse Oximetry 97 97 97 Oxygen Delivery Oxygen Flow Rate 06/15/25 16:31 06/15/25 16:36 06/15/25 17:00 Temperature 97.2 F L Pulse Rate 95 92 95 Respiratory Rate 20 18 20 Blood Pressure 113/47 L 113/47 L 120/57 L Pulse Oximetry 95 97 96 Oxygen Delivery Oxygen Flow Rate Exam Narrative: General: well appearing, appears stated age. HEENT: normocephalic, atraumatic. Mucous membranes moist. EOMI, PERRLA, bilateral sclera anicteric, no conjunctival injection. Neck supple without JVD, lymphadenopathy, or bruit. Respiratory: Core to ascultation bilaterally. Cardiovascular: Regular rate and rhythm, normal S1-S2 upon ascultation. No murmurs, rubs, or clicks. PMI is nondisplaced, capillary refill less than 3 second. Abdomen: Soft, round, no pulsatile masses, nondistended and nontender. No rebound, no guarding. No CVA tenderness, no hepatosplenomegaly. Bowel sounds present to all four quadrants. No high pitch or tinkling sounds, resonant to percussion. Extremities: No cyanosis, clubbing, or edema present. Pulses are palpable 2/2. Active ROM to all four extremities. Neuro: Alert and orientated x 4. PERRLA. Cranial nerves 2-12 intact without focal deficit. Skin: Warm, dry, and intact, without rash, erythema, or lesion. Psych: pleasant, cooperative, normal speech, normal affect, no hallucinations, no dysarthia H&P: Results Labs Labs: Short CBC 06/15/25 Range/Units 13:07 WBC 7.6 (4.5-10.0) K/mm3 Hgb 9.5 L (14.0-18.0) g/dL Hct 30.7 L (42.0-52.0) % Plt Count 196 (150-375) k/mm3 BMP 06/15/25 13:07 Sodium 135 L Potassium 4.3 Chloride 100 Carbon Dioxide 26 BUN 18 Creatinine 1.03 Glucose 171 H Calcium 9.1 Cardiac Enzymes 06/15/25 06/15/25 06/15/25 Range/Units 13:07 13:07 16:11 Troponin I 0.015 Cancelled 0.014 (0.000-0.034) ng/mL Liver Function 06/15/25 Range/Units 13:07 Total Bilirubin 0.4 (0.2-1.3) mg/dL AST 35 (17-59) U/L ALT 19 (6-50) U/L Alkaline Phosphatase 137 H (38-126) U/L Albumin 3.4 L (3.5-5.1) g/dL Assessment and Plan Assessment and plan (1) SNEHA (mycobacterium avium-intracellulare): Code(s): A31.0 - Pulmonary mycobacterial infection Status: Acute Assessment and Plan: Pulmonology consulted Continue home antibiotic: ethambutol hcl, rifabutin, acyclovir, azithromycin, and Levaquin DuoNeb Transfer to [facility] for pulmonology when bed is available Patient will bring med from home (2) Combined systolic and diastolic congestive heart failure: Qualifiers: Heart failure chronicity: acute on chronic Qualified Code(s): I50.43 - Acute on chronic combined systolic (congestive) and diastolic (congestive) heart failure Code(s): I50.40 - Unspecified combined systolic (congestive) and diastolic (congestive) heart failure Status: Acute Assessment and Plan: Acute on chronic 40 of IV Lasix daily Daily weight (3) Chronic pulmonary aspergillosis: Code(s): B44.1 - Other pulmonary aspergillosis Status: Acute Assessment and Plan: See plan above (4) Chronic hypoxic respiratory failure, on home oxygen therapy: Code(s): J96.11 - Chronic respiratory failure with hypoxia; Z99.81 - Dependence on supplemental oxygen Status: Acute Assessment and Plan: Acute on chronic, on 4 L O2 at home found to be 70% on pulse ox by EMS See plan above Solu-Medrol x1 Prednisone (5) HTN (hypertension): Qualifiers: Hypertension type: primary hypertension Qualified Code(s): I10 - Essential (primary) hypertension Code(s): I10 - Essential (primary) hypertension Status: Chronic Assessment and Plan: Continue losartan (6) Hyperlipidemia: Qualifiers: Hyperlipidemia type: mixed hyperlipidemia Qualified Code(s): E78.2 - Mixed hyperlipidemia Code(s): E78.5 - Hyperlipidemia, unspecified Status: Acute Assessment and Plan: Continue home medication (7) Chronic anemia: Code(s): D64.9 - Anemia, unspecified Status: Acute Assessment and Plan: At baseline No signs of acute bleeding CBC in a.m. (8) NSTEMI (non-ST elevated myocardial infarction): Onset Date: 08/2019 Code(s): I21.4 - Non-ST elevation (NSTEMI) myocardial infarction Status: Acute Assessment and Plan: 08/2019 Continue nitro, metoprolol, losartan, and aspirin Quality VTE Prophylaxis VTE prophylaxis: mechanical ordered and pharmacologic ordered Hospitalist MIPS Advance Care Plan I have confirmed that the patient's Advanced Care Plan is present, code status is documented, or surrogate decision maker is listed in patient medical record.: Yes Medication Reconciliation I have utilized all available resources to obtain, update and review the patients current medications (includes all prescriptions, OTC, herbals, cannabis, and nutritional supplements).: Yes
--- NOTE | 2025-06-15 17:43 | ADMGEN ---
This patient, Russell Morse, was admitted to IMU Room 207-01 at 1643. Patient/family oriented to hospital policies and general routines including ID bracelet, bed and alarms, visiting hours, pain management, procedures, bathroom and other care routines, personal items, smoking policy, room service/diet, and visiting hours. Information on how to activate the Rapid Response Team has been discussed. Patient/Family are encouraged to report perceived risks to care and to ask questions if they do not understand what they are told or what they should do.
[2025-06-15] MEDS: LORazepam (*CRX) 0.5 MG TABLET PO (18:34)
[2025-06-15] MEDS: IPRATROPIUM 0.5 MG/ALBUTEROL SULFATE 2.5 MG AMPUL.NEB 3 ML INHALATION (20:03)
[2025-06-15] MEDS: METOPROLOL SUCCINATE EXT REL 50 MG TABCR PO (21:07)
[2025-06-15] MEDS: TOBRAMYCIN/DEXAMETHASONE OP 2.5 ML BTL 1 DROP EACH EYE (21:07)
[2025-06-16] VITALS (25 sets, daily range): BP systolic 108–159; BP diastolic 55–61; PULSE 59–81; RESP 16–22; TEMP 36.3–36.7; O2SAT 95–100; BMI 23.0
[2025-06-16] MEDS: IPRATROPIUM 0.5 MG/ALBUTEROL SULFATE 2.5 MG AMPUL.NEB 3 ML INHALATION ×4 (01:29→20:38)
[2025-06-16 05:09] LABS: Hematocrit 26.9 % (42.0-52.0); Hemoglobin 8.2 g/dL (14.0-18.0); Immature Granulocyte Percent A 1.3 % (0-0.5); Lymphocytes Absolute Auto 0.61 K/mm3 (0.9-3.2); Mean Corpuscular HGB Conc 30.5 g/dl (32-36); Mean Corpuscular Hemoglobin 28.3 pg (26-34); Mean Corpuscular Volume 92.8 fl (80-100); Nucleated Red Blood Cells Absolute Auto 0.000 K/mm3 (0.0-0.012); Nucleated Red Blood Cells Perc 0.0 % (0.0-0.2); Platelet Count Result 184 k/mm3 (150-375); Red Blood Count 2.90 M/mm3 (4.6-6.20); White Blood Count 4.7 K/mm3 (4.5-10.0)
[2025-06-16 05:16] LABS: Anion Gap 5 mmol/L (4-12); Blood Urea Nitrogen 18 mg/dL (9-20); Calcium 8.8 mg/dL (8.4-10.2); Carbon Dioxide 30 mmol/L (22-30); Chloride 103 mmol/L (98-107); Estimated CRCL calculation 58 ml/min; Estimated Glomerular Filt Rate > 60; Glucose 131 mg/dL (65-110); Potassium 4.5 mmol/L (3.4-5.0); Sodium 138 mmol/L (137-145)
[2025-06-16] MEDS: LINACLOTIDE 145 MCG CAPSULE 290 MCG PO (06:32)
[2025-06-16] MEDS: FLUTICASONE/UMECLIDIN/VILANTER 100-62.5-25 MCG ELLIPTA 1 PUFF INHALATION (07:34)
[2025-06-16] MEDS: FENOFIBRATE NANOCRYSTALLIZED 145 MG TABLET PO (08:49)
[2025-06-16] MEDS: ATORVASTATIN 40 MG TABLET 80 MG PO (08:49)
[2025-06-16] MEDS: ENOXAPARIN 40 MG/0.4 ML SYRINGE SUB-Q (08:49)
[2025-06-16] MEDS: SERTRALINE HCL 50 MG TABLET PO (08:50)
[2025-06-16] MEDS: LOSARTAN POTASSIUM 25 MG TABLET PO (08:50)
[2025-06-16] MEDS: MORPHINE SULFATE (*CRX) 30 MG TABCR PO (08:50)
[2025-06-16] MEDS: ASPIRIN 81 MG ENTERIC TABLET PO (08:50)
[2025-06-16] MEDS: AZITHROMYCIN 250 MG TABLET 500 MG PO (08:50)
[2025-06-16] MEDS: FUROSEMIDE INJ 40 MG/4 ML VIAL 20 MG IV PUSH (08:50)
[2025-06-16] MEDS: PANTOPRAZOLE 40 MG TABLET PO (08:50)
[2025-06-16] MEDS: TAMSULOSIN HCL 0.4 MG CAPSULE PO (08:51)
[2025-06-16] MEDS: TOBRAMYCIN/DEXAMETHASONE OP 2.5 ML BTL 1 DROP EACH EYE ×4 (08:51→20:14)
[2025-06-16] MEDS: DOCUSATE SODIUM 100 MG CAPSULE PO ×2 (08:51→17:10)
[2025-06-16] MEDS: ETHAMBUTOL HCL 400 MG TABLET 1200 MG PO (08:52)
--- NOTE | 2025-06-16 14:16 | PHAR ---
Home meds: Rifabutin 150mg cap take 2 caps po every day x21 days. Maroon capsule, Imprint 041 Novitium 150mg Sulindac 200mg tab take 1 tab po BID, yellow tablet Imprint e 11 Verified by pharmacy
--- NOTE | 2025-06-16 14:52 | P.PNIM_ITS ---
Progress Note: A&P Assessment and Plan (1) SNEHA (mycobacterium avium-intracellulare): Code(s): A31.0 - Pulmonary mycobacterial infection Status: Acute Assessment and Plan: Pulmonology consulted Continue home antibiotic: ethambutol hcl, rifabutin, acyclovir, azithromycin, and Levaquin DuoNeb Transfer to [place] for pulmonology when bed is available Patient will bring med from home (2) Combined systolic and diastolic congestive heart failure: Qualifiers: Heart failure chronicity: acute on chronic Qualified Code(s): I50.43 - Acute on chronic combined systolic (congestive) and diastolic (congestive) heart failure Code(s): I50.40 - Unspecified combined systolic (congestive) and diastolic (congestive) heart failure Status: Acute Assessment and Plan: Acute on chronic 40 of IV Lasix daily Daily weight (3) Chronic pulmonary aspergillosis: Code(s): B44.1 - Other pulmonary aspergillosis Status: Acute Assessment and Plan: See plan above (4) Chronic hypoxic respiratory failure, on home oxygen therapy: Code(s): J96.11 - Chronic respiratory failure with hypoxia; Z99.81 - Dependence on supplemental oxygen Status: Acute Assessment and Plan: Acute on chronic, on 4 L O2 at home found to be 70% on pulse ox by EMS See plan above Solu-Medrol x1 Prednisone (5) HTN (hypertension): Qualifiers: Hypertension type: primary hypertension Qualified Code(s): I10 - Essential (primary) hypertension Code(s): I10 - Essential (primary) hypertension Status: Chronic Assessment and Plan: Continue losartan (6) Hyperlipidemia: Qualifiers: Hyperlipidemia type: mixed hyperlipidemia Qualified Code(s): E78.2 - Mixed hyperlipidemia Code(s): E78.5 - Hyperlipidemia, unspecified Status: Acute Assessment and Plan: Continue home medication (7) Chronic anemia: Code(s): D64.9 - Anemia, unspecified Status: Acute Assessment and Plan: At baseline No signs of acute bleeding CBC in a.m. (8) NSTEMI (non-ST elevated myocardial infarction): Onset Date: 08/2019 Code(s): I21.4 - Non-ST elevation (NSTEMI) myocardial infarction Status: Acute Assessment and Plan: 08/2019 Continue nitro, metoprolol, losartan, and aspirin Plan Awaiting transfer to [facility] Subjective Date/time seen: 06/16/25 14:52 Interval history: Comfortable at bedside Review of Systems Review of Systems: 12 systems were reviewed and are negativ e except for as per HPI. Exam Narrative: General: well appearing, appears stated age. HEENT: normocephalic, atraumatic. Mucous membranes moist. EOMI, PERRLA, bilateral sclera anicteric, no conjunctival injection. Neck supple without JVD, lymphadenopathy, or bruit. Respiratory: Core to ascultation bilaterally. Cardiovascular: Regular rate and rhythm, normal S1-S2 upon ascultation. No murmurs, rubs, or clicks. PMI is nondisplaced, capillary refill less than 3 second. Abdomen: Soft, round, no pulsatile masses, nondistended and nontender. No rebound, no guarding. No CVA tenderness, no hepatosplenomegaly. Bowel sounds present to all four quadrants. No high pitch or tinkling sounds, resonant to percussion. Extremities: No cyanosis, clubbing, or edema present. Pulses are palpable 2/2. Active ROM to all four extremities. Neuro: Alert and orientated x 4. PERRLA. Cranial nerves 2-12 intact without focal deficit. Skin: Warm, dry, and intact, without rash, erythema, or lesion. Psych: pleasant, cooperative, normal speech, normal affect, no hallucinations, no dysarthia Objective Data Vital Signs Vital Signs: Vital Signs - 24 hr 06/15/25 15:00 06/15/25 15:02 06/15/25 15:15 Temperature Pulse Rate 100 98 99 Respiratory Rate 25 H 22 H 18 Blood Pressure 103/56 L Pulse Oximetry 95 98 96 Oxygen Delivery Oxygen Flow Rate Fraction of Inspired Oxygen 06/15/25 15:16 06/15/25 15:30 06/15/25 15:31 Temperature Pulse Rate 98 96 96 Respiratory Rate 23 H 19 24 H Blood Pressure 104/54 L 107/56 L Pulse Oximetry 97 96 97 Oxygen Delivery Oxygen Flow Rate Fraction of Inspired Oxygen 06/15/25 15:45 06/15/25 15:46 06/15/25 16:00 Temperature Pulse Rate 90 90 90 Respiratory Rate 14 14 26 H Blood Pressure 98/54 L Pulse Oximetry 98 96 98 Oxygen Delivery Oxygen Flow Rate Fraction of Inspired Oxygen 06/15/25 16:01 06/15/25 16:15 06/15/25 16:16 Temperature Pulse Rate 92 93 92 Respiratory Rate 12 15 16 Blood Pressure 102/56 L 126/58 L Pulse Oximetry 99 97 97 Oxygen Delivery Oxygen Flow Rate Fraction of Inspired Oxygen 06/15/25 16:30 06/15/25 16:31 06/15/25 16:36 Temperature Pulse Rate 91 95 92 Respiratory Rate 21 H 20 18 Blood Pressure 113/47 L 113/47 L Pulse Oximetry 97 95 97 Oxygen Delivery Oxygen Flow Rate Fraction of Inspired Oxygen 06/15/25 17:00 06/15/25 17:00 06/15/25 18:00 Temperature 97.2 F L Pulse Rate 95 88 Respiratory Rate 20 Blood Pressure 120/57 L Pulse Oximetry 96 96 Oxygen Delivery Nasal Cannula Oxygen Flow Rate 4 Fraction of Inspired Oxygen 06/15/25 20:00 06/15/25 20:00 06/15/25 20:00 Temperature 97.5 F L Pulse Rate 82 81 Respiratory Rate 18 Blood Pressure 118/75 Pulse Oximetry 97 97 Oxygen Delivery Nasal Cannula Oxygen Flow Rate 4 Fraction of Inspired Oxygen 06/15/25 20:03 06/15/25 20:03 06/15/25 20:11 Temperature Pulse Rate 84 85 Respiratory Rate 16 16 Blood Pressure Pulse Oximetry 97 Oxygen Delivery Nasal Cannula Oxygen Flow Rate 4 Fraction of Inspired Oxygen 06/15/25 21:07 06/15/25 22:00 06/15/25 23:51 Temperature Pulse Rate 79 74 Respiratory Rate Blood Pressure Pulse Oximetry 99 Oxygen Delivery Nasal Cannula Oxygen Flow Rate 4 Fraction of Inspired Oxygen 06/16/25 00:00 06/16/25 00:00 06/16/25 01:29 Temperature 97.7 F Pulse Rate 72 70 73 Respiratory Rate 18 16 Blood Pressure 133/56 L Pulse Oximetry 96 Oxygen Delivery Oxygen Flow Rate Fraction of Inspired Oxygen 06/16/25 01:38 06/16/25 02:00 06/16/25 04:00 Temperature 97.8 F Pulse Rate 77 69 59 L Respiratory Rate 16 20 Blood Pressure 159/58 H Pulse Oximetry 96 Oxygen Delivery Oxygen Flow Rate Fraction of Inspired Oxygen 06/16/25 04:00 06/16/25 04:00 06/16/25 06:00 Temperature Pulse Rate 62 68 Respiratory Rate Blood Pressure Pulse Oximetry 98 Oxygen Delivery Nasal Cannula Oxygen Flow Rate 4 Fraction of Inspired Oxygen 06/16/25 07:35 06/16/25 07:35 06/16/25 07:48 Temperature Pulse Rate 75 78 Respiratory Rate 16 16 Blood Pressure Pulse Oximetry 97 Oxygen Delivery Nasal Cannula Oxygen Flow Rate 4 Fraction of Inspired Oxygen 36 06/16/25 07:54 06/16/25 08:00 06/16/25 08:00 Temperature 97.7 F Pulse Rate 64 75 Respiratory Rate 18 Blood Pressure 108/60 Pulse Oximetry 100 97 Oxygen Delivery Nasal Cannula Oxygen Flow Rate 4 Fraction of Inspired Oxygen 06/16/25 10:00 06/16/25 11:33 06/16/25 12:00 Temperature 98.1 F Pulse Rate 70 75 Respiratory Rate 20 Blood Pressure 146/58 H Pulse Oximetry 97 97 Oxygen Delivery Nasal Cannula Oxygen Flow Rate 4 Fraction of Inspired Oxygen 06/16/25 12:00 06/16/25 14:30 06/16/25 14:37 Temperature Pulse Rate 78 75 75 Respiratory Rate 16 16 Blood Pressure Pulse Oximetry Oxygen Delivery Oxygen Flow Rate Fraction of Inspired Oxygen Intake/Output Intake/Output: Intake & Output 06/13/25 06/14/25 06/15/25 06/16/25 23:59 23:59 23:59 23:59 Intake Total 540 1697 Output Total 1900 Balance 540 -203 Meds/Results Medications: Active Medications Generic Name Dose Route Start Last Admin Trade Name Freq PRN Reason Stop Dose Admin Acetaminophen 650 mg 06/15/25 18:22 Acetaminophen 325 Mg Tablet PO Q4H PRN Mild Pain (1-3) or Fever Acyclovir 400 mg 06/16/25 21:00 Acyclovir 400 Mg Tablet PO TID GIOVANNY Albuterol/Ipratropium 3 ml 06/15/25 20:00 06/16/25 14:35 Ipratropium 0.5 Mg/Albuterol Sulfate 2.5 Mg Ampul.Neb 3 Ml INHALATION 3 ml Q6HRT GIOVANNY Administration Aspirin 81 mg 06/16/25 09:00 06/16/25 08:50 Aspirin 81 Mg Enteric Tablet PO 81 mg DAILY GIOVANNY Administration Atorvastatin Calcium 80 mg 06/16/25 09:00 06/16/25 08:49 Atorvastatin 40 Mg Tablet PO 80 mg DAILY GIOVANNY Administration Azithromycin 500 mg 06/16/25 09:00 06/16/25 08:50 Azithromycin 250 Mg Tablet PO 500 mg DAILY GIOVANNY Administration Baclofen 10 mg 06/15/25 18:01 Baclofen 10 Mg Tablet PO Q12H PRN muscle spasm Benzonatate 200 mg 06/16/25 09:00 Benzonatate 100 Mg Capsule PO TID PRN Cough Bupropion HCl 150 mg 06/16/25 21:00 Bupropion Hcl Sr (12 Hr) 150 Mg Tab PO Q12HR GIOVANNY Docusate Sodium 100 mg 06/16/25 09:00 06/16/25 08:51 Docusate Sodium 100 Mg Capsule PO 100 mg BID GIOVANNY Administration Enoxaparin Sodium 40 mg 06/16/25 09:00 06/16/25 08:49 Enoxaparin 40 Mg/0.4 Ml Syringe SUB-Q 40 mg DAILY GIOVANNY Administration Ethambutol HCl 1,200 mg 06/16/25 09:00 06/16/25 08:52 Ethambutol Hcl 400 Mg Tablet PO 1,200 mg DAILY GIOVANNY Administration Fenofibrate 145 mg 06/16/25 09:00 06/16/25 08:49 Fenofibrate Nanocrystallized 145 Mg Tablet PO 145 mg QAM GIOVANNY Administration Fluticasone/Umeclidinium/Vilanterol 1 puff 06/16/25 08:00 06/16/25 07:34 Fluticasone/Umeclidin/Vilanter 100-62.5-25 Mcg Ellipta INHALATION 1 puff DAILYRT GIOVANNY Administration Furosemide 20 mg 06/16/25 09:00 06/16/25 08:50 Furosemide Inj 40 Mg/4 Ml Vial IV PUSH 20 mg DAILY GIOVANNY Administration Levofloxacin 750 mg 06/16/25 09:00 06/16/25 08:50 Levofloxacin 750 Mg Tablet PO 750 mg DAILY GIOVANNY Administration Linaclotide 290 mcg 06/16/25 06:30 06/16/25 06:32 Linaclotide 145 Mcg Capsule PO 290 mcg DAILY@0630 GIOVANNY Administration Lorazepam 0.5 mg 06/15/25 18:01 06/15/25 18:34 Lorazepam (*Crx) 0.5 Mg Tablet PO 0.5 mg BID PRN Administration anxiety Losartan Potassium 25 mg 06/16/25 09:00 06/16/25 08:50 Losartan Potassium 25 Mg Tablet PO 25 mg DAILY GIOVANNY Administration Metoprolol Succinate 50 mg 06/15/25 21:00 06/15/25 21:07 Metoprolol Succinate Ext Rel 50 Mg Tabcr PO 50 mg HS GIOVANNY Administration Morphine Sulfate 30 mg 06/16/25 09:00 06/16/25 08:50 Morphine Sulfate (*Crx) 30 Mg Tabcr PO 30 mg DAILY GIOVNANY Administration Nitroglycerin 0.4 mg 06/15/25 18:20 Nitroglycerin Sl 0.4 Mg Tablet SUBLINGUAL Q5M PRN chest pain Rifabutin 150 Mg 300 mg 06/17/25 09:00 Capsule Home Med PO 06/28/25 08:59 DAILY GIOVANNY Sulindac 200 Mg 200 mg 06/16/25 17:00 Tablet Home Med PO 07/16/25 16:59 BID GIOVANNY Pantoprazole Sodium 40 mg 06/16/25 09:00 06/16/25 08:50 Pantoprazole 40 Mg Tablet PO 40 mg QAM GIOVANNY Administration Prednisone 40 mg 06/16/25 08:00 06/16/25 08:50 Prednisone 20 Mg Tablet PO 40 mg DAILY@0800 GIOVANNY Administration Sertraline HCl 50 mg 06/16/25 09:00 06/16/25 08:50 Sertraline Hcl 50 Mg Tablet PO 50 mg DAILY GIOVANNY Administration Tamsulosin HCl 0.4 mg 06/16/25 09:00 06/16/25 08:51 Tamsulosin Hcl 0.4 Mg Capsule PO 0.4 mg DAILY GIOVANNY Administration Tobramycin/Dexamethasone 1 drop 06/15/25 21:00 06/16/25 13:54 Tobramycin/Dexamethasone Op 2.5 Ml Btl EACH EYE 1 drop QID GIOVANNY Administration Trazodone HCl 100 mg 06/15/25 21:00 06/15/25 21:07 Trazodone Hcl 50 Mg Tablet PO 100 mg HS GIOVANNY Administration Radiology Results: ITS Impressions Chest X-Ray 06/15/25 13:32 IMPRESSION: Worsening bibasilar airspace disease, right greater than left. This may be the result of pulmonary edema versus pneumonia in appropriate clinical settings. Clinical correlation is recommended. Short-term follow-up chest radiograph is recommended after appropriate clinical therapy to document resolution. Labs Labs: Laboratory Results - last 24 hr 06/15/25 06/16/25 16:11 04:16 WBC 4.7 RBC 2.90 L Hgb 8.2 L Hct 26.9 L MCV 92.8 MCH 28.3 MCHC 30.5 L RDW 15.3 H Plt Count 184 MPV 10.2 Immature Gran % (Auto) 1.3 H Neut % (Auto) 73.3 H Lymph % (Auto) 13.0 L [place] % (Auto) 12.2 H Eos % (Auto) 0.0 Baso % (Auto) 0.2 Lymph # (Auto) 0.61 L [place] # (Auto) 0.6 Eos # (Auto) 0.0 Baso # (Auto) 0.0 Abs Immat Gran (auto) 0.06 H Absolute Neuts (auto) 3.4 Absolute Nucleated RBC 0.000 Nucleated RBC % 0.0 Sodium 138 Potassium 4.5 Chloride 103 Carbon Dioxide 30 Anion Gap 5 BUN 18 Creatinine 0.90 Estim Creat Clear Calc 58 Estimated GFR > 60 Glucose 131 H Calcium 8.8 Troponin I 0.014 Quality VTE Prophylaxis VTE prophylaxis: mechanical ordered and pharmacologic ordered
[2025-06-16] MEDS: SULINDAC 200 MG 200 EACH PO (17:09)
[2025-06-16] MEDS: ACYCLOVIR 400 MG TABLET PO (20:13)
[2025-06-16] MEDS: METOPROLOL SUCCINATE EXT REL 50 MG TABCR PO (20:14)
[2025-06-16] MEDS: buPROPion HCL SR (12 HR) 150 MG TAB PO (20:14)
[2025-06-17] VITALS (22 sets, daily range): BP systolic 102–156; BP diastolic 43–65; PULSE 57–96; RESP 18–24; TEMP 36.5–36.8; O2SAT 95–100
[2025-06-17] MEDS: LORazepam (*CRX) 0.5 MG TABLET PO ×2 (03:09→12:17)
[2025-06-17 04:28] LABS: Hematocrit 29.0 % (42.0-52.0); Hemoglobin 8.6 g/dL (14.0-18.0); Immature Granulocyte Percent A 0.9 % (0-0.5); Lymphocytes Absolute Auto 0.82 K/mm3 (0.9-3.2); Mean Corpuscular HGB Conc 29.7 g/dl (32-36); Mean Corpuscular Hemoglobin 28.1 pg (26-34); Mean Corpuscular Volume 94.8 fl (80-100); Nucleated Red Blood Cells Absolute Auto 0.000 K/mm3 (0.0-0.012); Nucleated Red Blood Cells Perc 0.0 % (0.0-0.2); Platelet Count Result 190 k/mm3 (150-375); Red Blood Count 3.06 M/mm3 (4.6-6.20); White Blood Count 5.4 K/mm3 (4.5-10.0)
[2025-06-17 04:43] LABS: Alanine Aminotransferase 28 U/L (6-50); Albumin Level 3.3 g/dL (3.5-5.1); Alkaline Phosphatase 126 U/L (38-126); Anion Gap 5 mmol/L (4-12); Aspartate Amino Transferase 54 U/L (17-59); Bilirubin,Total 0.1 mg/dL (0.2-1.3); Blood Urea Nitrogen 21 mg/dL (9-20); Calcium 9.2 mg/dL (8.4-10.2); Carbon Dioxide 29 mmol/L (22-30); Chloride 98 mmol/L (98-107); Estimated CRCL calculation 59 ml/min; Estimated Glomerular Filt Rate > 60; Glucose 92 mg/dL (65-110); Magnesium 1.9 mg/dL (1.6-2.3); Potassium 4.2 mmol/L (3.4-5.0); Sodium 132 mmol/L (137-145); Total Protein 6.8 g/dL (6.3-8.2)
[2025-06-17] MEDS: LINACLOTIDE 145 MCG CAPSULE 290 MCG PO (05:44)
[2025-06-17] MEDS: IPRATROPIUM 0.5 MG/ALBUTEROL SULFATE 2.5 MG AMPUL.NEB 3 ML INHALATION ×3 (08:29→21:23)
[2025-06-17] MEDS: FLUTICASONE/UMECLIDIN/VILANTER 100-62.5-25 MCG ELLIPTA 1 PUFF INHALATION (08:31)
[2025-06-17] MEDS: DOCUSATE SODIUM 100 MG CAPSULE PO ×2 (08:46→16:20)
[2025-06-17] MEDS: FENOFIBRATE NANOCRYSTALLIZED 145 MG TABLET PO (08:46)
[2025-06-17] MEDS: PANTOPRAZOLE 40 MG TABLET PO (08:46)
[2025-06-17] MEDS: AZITHROMYCIN 250 MG TABLET 500 MG PO (08:46)
[2025-06-17] MEDS: ETHAMBUTOL HCL 400 MG TABLET 1200 MG PO (08:46)
[2025-06-17] MEDS: SERTRALINE HCL 50 MG TABLET PO (08:46)
[2025-06-17] MEDS: ASPIRIN 81 MG ENTERIC TABLET PO (08:46)
[2025-06-17] MEDS: ACYCLOVIR 400 MG TABLET PO ×3 (08:46→16:20)
[2025-06-17] MEDS: buPROPion HCL SR (12 HR) 150 MG TAB PO ×2 (08:46→20:24)
[2025-06-17] MEDS: ATORVASTATIN 40 MG TABLET 80 MG PO (08:46)
[2025-06-17] MEDS: FUROSEMIDE INJ 40 MG/4 ML VIAL 20 MG IV PUSH (08:47)
[2025-06-17] MEDS: MORPHINE SULFATE (*CRX) 30 MG TABCR PO (08:47)
[2025-06-17] MEDS: TAMSULOSIN HCL 0.4 MG CAPSULE PO (08:47)
[2025-06-17] MEDS: LOSARTAN POTASSIUM 25 MG TABLET PO (08:47)
[2025-06-17] MEDS: TOBRAMYCIN/DEXAMETHASONE OP 2.5 ML BTL 1 DROP EACH EYE ×4 (08:47→20:24)
[2025-06-17] MEDS: ENOXAPARIN 40 MG/0.4 ML SYRINGE SUB-Q (08:47)
[2025-06-17] MEDS: SULINDAC 200 MG 200 EACH PO ×2 (08:48→16:20)
[2025-06-17] MEDS: RIFABUTIN 150 MG 300 EACH PO (08:48)
--- NOTE | 2025-06-17 13:55 | PM.CNPUL ---
Assessment and Plan Assessment and plan (1) Chronic obstructive pulmonary disease: Code(s): J44.9 - Chronic obstructive pulmonary disease, unspecified Status: Acute Assessment and Plan: Gold grade [address] scan with panlobular emphysema. Testing; 04/28/2025: Home O2 assessment: Final recommendation was 2 L at rest and 5 L with activity. Home management is Breztri (triple therapy-budesonide/glycopyrrolate/formoterol) vs Bevespi (glycopyrrolate-formoterol, NO ICS) hx of Pseudomonas aeruginosa on 10/10/2021 and 04/26/2025; Alcaligenes xylosoxidans sensitive to meropenem and Septra, intermediate to Zosyn, resistant to ceftaz, levofloxacin and imipenem. * alpha 1 anti-trypsin genotype MM, [id number] apical predominant centrilobular and paraseptal emphysema on his CT scan from 10/11/2021 * 12/16/2023 PFT; mild obstruction with FEV1 68%, ratio 61%. No bronchodilator response, hyperinflation, severely decreased DLCO the remains mildly decreased when adjusted for alveolar volume. Compared to 01/01/2022 had been a significant decrease in the FVC, FEV1, total lung capacity, functional residual capacity and diffusing capacity. PMH: COVID pneumonia on 09/10/2021, 11/13/2023 treated with Paxlovid, rebound symptoms treated with clarithromycin and doxycycline. Recurrent pneumonias; 02/25/2024 for pneumonia with sputum showing Haemophilus treated with steroids. 10/04/2024: White blood cell count 11.1 eosinophils 3.2%=355/uL. Eosinophils elevated. (2) SNEHA (mycobacterium avium-intracellulare): Code(s): A31.0 - Pulmonary mycobacterial infection Status: Acute Assessment and Plan: SNEHA in sputum, multiple pulmonary infections requiring antibiotics on 02/25/2024, 04/10/2024, 09/08/2024, 10/04/2024, 11/04/2024, 11/20/2024, 12/02/2024, 03/02/2025, 04/25/2025, 05/12/2025, and 05/22/2025. He saw [facility] ID on May 02 while inpatient at [facility], was started on current regimen without azithromycin due to hearing loss; he is on rifabutin 300 mg a day, ethambutol 1200 mg a day. (3) History of tobacco use: Code(s): Z87.891 - Personal history of nicotine dependence Status: Acute Assessment and Plan: History of 60-80 pack years, none since 2018 (4) Hearing loss: Code(s): H91.90 - Unspecified hearing loss, unspecified ear Status: Acute Assessment and Plan: He has had a sudden noticeable loss of hearing particularly in the left ear over the last week. The right ear has been not functioning well for several years but the left ear suddenly has worsen. He is on medicines for SNEHA for the last 6 weeks. Azithromycin may be the most likely cause for decreased hearing. I stopped this. I looked in his ears, no cerumen. He will need outpatient audiology testing. Plan plan: 1) Stop azithromycin with his hearing loss as this might be contributing. He is already not able to hear from the right ear. Add po Levaquin to current regimen starting tomorrow; this was ordered by his ID team to complete on June 18. He had azithromycin today, so he has to wait to have azithromycin get out before giving him oral Levaquin. He may need fine tuning of his SNEHA drugs. I do not have a plan for what to substitute for the azithromycin. Other medications changes; Re-activate hydroxyline which he takes for anxiety and insomnia; has been on this for years. Start BuSpar 2.5 mg bid for anxiety. Stop Linzess as this may contribute to his diarrhea. He has alternating diarrhea and large BMs difficult to pass. 2) Sputum for Gram stain C&S. Vitamin D level. Does not have one in the system. He had ferritin and iron levels in Nov. Repeat. Supplement if iron, Vit D are low. His B12 and folate are ok. 3) Check UA; his has dysuria with initiation of urination. 4) Patient needs inpatient rehab at discharge, he continues to fail at home, cannot walk to bathroom, cannot get food, won't participate with therapy, and now is so weak he can not walk around his own house. He needs pulmonary rehab after discharge but needs to be well enough to participate. 5) He needs increased pulmonary hygiene, needs to use his PAP valve 10 exhales t.i.d with 3% saline 2 ml, Mucomyst 20% t.i.d, albuterol neb t.i.d and vibratory vest t.i.d. Cornet valve to be used after vest therapy; encourage coughing and expectoration. He has none of this going on at home right now. 6) He needs nebulized bronchodilator for his machine at home, he does not have any albuterol currently however he does have a nebulizer. He is a candidate for a vibratory vest at home with bronchiectasis on his CT scan. Respiratory therapy may be able to help us with this on Thursday. I placed a request for RT to help notify his DME for this. 7) I clarified his home pulmonary regimen; he tells me that he is on Bevespi, no inhaled steroid due to MAC. Home med list does say he is on Breztri which is not correct. He needs to go home on Bevespi. At the last discharge from [facility] June 08, his son Marco said that the patient was not coughing or expectorating sputum which initially seemed like a good thing but really it was due to his overall weakness, lack of cough reflex, and with these changes he appears to have more inspissated secretions and consolidation in the right base. He has had multiple admissions close together. He needs to have inpatient rehab before going home. Otherwise, he will continue to deteriorate and . I talked with his son about the trajectory of SNEHA; this occurs in older people with underlying lung disease; it is not contagious, it is difficult to manage because require several antibiotics for 1, 2 years or longer. The meds are expensive, they have side effects, and there is a lot of monitoring such as hearing, vision, lab testing. This patient is failing azithromycin now with his sudden hearing loss. I stopped azithromycin, added Levaquin orally to start tomorrow. He can keep his ID appointment at [facility] in several weeks. I talked with Marco about his father's situation. The patient is waiting on a bed for transfer at [facility]. I do not think he has to have a transfer at this time. He has had 2 prior admissions in the last 6 weeks, and return to [facility] mainly due to deconditioning and inability to perform his pulmonary hygiene at home. This is not necessary and I cancelled the transfer. Dr Dinh is aware, and does not disagree. Instead of transferring him to [facility], I am recommending more aggressive pulmonary hygiene while he is in the hospital at [place], and for him to go to inpatient rehab at time of discharge. Later, pulmonary rehab would help. He cannot even walk to the bathroom at home. He is weak, not coughing well, needs to have his strength increased before going home. His son and [id number] both work full-time, they have missed huge amounts of work due to taking care their father. When the patient is at home, he is not even really trying to exercise. He is not participating with his recovery. Patient acts tired, disinterested. This is frustrating for Marco because he wants his father to recover. We all want the best for our elders, but the patient has to want to get better and participate. He also has heart disease; there are many conditions overlapping. The patient has had multiple admissions during the last calendar year MAC is difficult to treat and can be fatal. His CXR and O2 requirement are not critical at this time. He would have to get much sicker to from MAC. He son was worried because the patient's brother from a heart-lung problems. History of Present Illness History of Present Illness Consult date: 06/17/25 Chief complaint: Acute shortness of breath, hypoxia, Narrative: patient was seen June 17, 2025 at 1:55 p.m. Room 207 IMU His son Marco is at the bedside, provides history. NEW: Russell Morse is an 80-year-old man with SNEHA infection, COPD, returns to the ER with shortness of breath and hypoxia. He was recently admitted on 05/30/2025 for same conditions, was transferred to [facility] from 06/04 to 06/08, went hommi on Levaquin to complete 750 mg po on June 18. He was also on SNEHA treatment including azithromycin 500 mg/day, Rifabutin 300 mg/day, ethambutol 1200 mg/ day. Brayand said that the patient went home but was very weak, could not even walk to the bathroom easily. He and his have been taking off work to care for him at home because he now cannot do almost any self care. He cannot get to the bathroom by himself. With walking to the bathroom on his usual 4 L his saturation is dropping to 79-82%. He can not get to the kitchen by himself. He was supposed to start outpatient therapy this week but was readmitted quickly so this did not happen. Marco tells me that his father had a recent significant loss of hearing in the left ear. He has had hearing loss in the right ear for years. His CXR June 15 is worse compared to his May 30 CXR. He has increased infiltrate and consolidation in the right base. 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 Family hx: Brothers had COPD 8 years ago; pt, lives with son Marco and his , is alone in the day; sometimes daughter Sadia comes over, 17 hours a week, O2: has been on 2-3 years, wanted to be on it, was sneaking it from his who had severe lung disease. 2024 admissions: 05/30/2025 [place] admission shortness of breath; transferred to [facility] 06/04 to 06/07; discharged on Levaquin to continue until June 18; continue SNEHA meds 05/12/2025, ER visit, shortness of breath, home. 04/25/25 -04/28/25; admitted [facility] respiratory distress, hypoxemia, transferred to [facility]; ID saw him 05/02/25; SNEHA; started Rx with azithromycin 500 mg/day, Rifabutin 300 mg/day, ethambutol 1200 mg/ day initial sputum with SNEHA was 12/16/2024 with AFB verified on 01/20/25 and grew SNEHA on 02/01/25.?Sensitivities 03/28/25. QuantiFERON gold was negative on 01/24/25. ORGANISM: MYCOBACTERIUM AVIUM COMPLEX AMIKACIN: 16 S mcg/mL AMIKACIN (LIPOSOMAL, INHALED): 16 S mcg/mL CIPROFLOXACIN: >8 mcg/mL CLARITHROMYCIN: 2 S mcg/mL CLOFAZIMINE: 0.25 mcg/mL DOXYCYCLINE: >8 mcg/mL LINEZOLID: 16 I mcg/mL MINOCYCLINE: >8 mcg/mL MOXIFLOXACIN: 4 R mcg/mL RIFABUTIN: 1 mcg/mL RIFAMPIN: >4 mcg/mL STREPTOMYCIN: >32 * This is a corrected result. * A prior result that was reported as final has been changed. 1. Mycobacterium avium complex M.I.C. RX --------- --- Rifampin AFB >4 S Streptomycin AFB R Amikacin AFB 16 S Moxifloxacin AFB R 03/02/2025 patient with increased phlegm production and treated for bronchitis with Septra DS 2 tablets twice a day x 7 days. PMH: CHF with reduced ejection fraction, CKD stage 3, COPD, NSTEMI, polio as a child; recent SNEHA pneumonia DATA * 06/15/2025; CXR; IMPRESSION: Worsening bibasilar airspace disease, right greater than left. This may be the result of pulmonary edema versus pneumonia in appropriate clinical settings. Clinical correlation is recommended. Short-term follow-up chest radiograph is recommended after appropriate clinical therapy to document resolution. May 30, 2025 ; CXR: Small right pleural effusion present. There is worsening hazy and interstitial disease in the right lung base and right midlung. Possible minimal haziness left lung base. Cardiomediastinal silhouette is stable. Bones and soft tissues are unremarkable. Impression: Probable mild pulmonary edema, worse in the right lung than left, versus possibly pneumonia. Correlate clinically. Small right pleural effusion. May 30, 2025 Below is information from prior admissions 04/26/2025: This is a new pulmonary consult for COPD and MAC. 80-year-old with a history of coronary artery disease status post non ST elevation [place] August of 2019, ischemic cardiomyopathy, hypertension, hyperlipidemia, Gold grade 2 group B COPD on home oxygen 7 L at rest, with activity and with sleep and MAC lung disease. Regarding his COPD, patient with 60 pack year tobacco use quit in 2019, alpha 1 anti trypsin genotype MM, [id number] apical predominant centrilobular and paraseptal emphysema on his CT scan from 10/11/2021. Of note he has had COVID pneumonia on 09/10/2021 and Pseudomonas aeruginosa on 10/10/2021, and 04/26/2025. His PFTs from 12/16/2023 show mild obstruction with FEV1 68%, ratio 61%. No bronchodilator response, hyperinflation, severely decreased DLCO the remains mildly decreased when adjusted for alveolar volume. Compared to 01/01/2022 had been a significant decrease in the FVC, FEV1, total lung capacity, functional residual capacity and diffusing capacity. When admitted for pneumonia had an ABG on 02/25/2024 on 3 L nasal cannula 7.44/36/67. 10/04/2024: ABG on 2 L 7.43/41/75. 10/04/2024: White blood cell count 11.1 eosinophils 3.2%=355/uL. 04/09/2024 white blood cell count 11.1, eosinophils 0.4%=44/uL. Tested positive for COVID 11/13/2023 treated with Paxlovid, rebound symptoms treated with clarithromycin and doxycycline. Hospitalize 02/25/2024 for pneumonia with sputum showing Haemophilus treated with steroids. Hospitalized 04/10/24 to 04/12/24 for COPD exacerbation treated with prednisone and azithromycin. 09/08/2024 cold symptoms, treated with doxycycline and prednisone taper. 10/04/2024 ED visit for shortness of breath treated for fluid overload and COPD exacerbation with prednisone and Augmentin. 11/04 admitted to [facility] with congestive heart failure and pneumonia no evidence of COPD exacerbation. 11/20 admitted to [facility] for shortness of breath, fluid overload and possible pneumonia. 12/02/2024 through 12/06/2024 admitted to [facility] treated for pneumonia. sputum from 12/17/2024 grew out Alcaligenes xylosoxidans sensitive to meropenem and Septra, intermediate to Zosyn, resistant to ceftaz, levofloxacin and imipenem. 03/02/2025 patient with increased phlegm production and treated for bronchitis with Septra DS 2 tablets twice a day x 7 days. 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 Sputum on 12/15/2024 with AFB verified on 01/14/25 and grew SNEHA on 03/03/25. Sensitivities 03/20/25. On 03/20/25 patient referred to [facility] with appointment scheduled for 05/02/2025. Sputum on 12/16/2024 with AFB verified on 01/20/25 and grew SNEHA on 02/01/25. Sensitivities 03/28/25. QuantiFERON gold was negative on 01/24/25. Patient was treated for bronchitis on 03/02/2025 and improved with Septra. He was at his baseline which is dyspnea on exertion at 50-75 feet. He is using 7 L at rest, with saturations 95-97% at home. He is using 7 L with activity with saturations 92%. He is using 7 L at night. He typically has no daily fevers. He coughs phlegm 2 times a day which is described as lynn. Patient tells me he was at his baseline on 04/24/2020 5. On 04/25/2025 he developed a fever, increased cough, worsening dyspnea on exertion with the same amount of phlegm. Family reported some confusion. He was brought to the emergency department. 04/25/25 through 04/28/2025: admitted to [facility] for respiratory distress and hypoxemia. I spoke with the emergency room physician and requested that he be transferred to [facility] said he could be evaluated by an Infectious Disease team which we do not have at [facility]. Patient was referred to [facility] but no beds were available. In the meantime I recommended ceftriaxone, azithromycin and Septra. 04/26/25: a CT angiogram of the chest: I have compared this to CT scans from 11/20/2024 and 08/29/2024 and 02/25/2024. Current CT shows no PE, worsening consolidation and infiltrates in the right lower lobe compared to 11/20/2024 and 02/25/2024. Compared to CT scan on 02/25/2024 currently there are some areas of improved consolidation in the right lower lobe and some different areas with worsening consolidations in the right lower lobe. There is unchanged consolidation in the posterior left lower lobe with no change compared to 11/20/2024, 08/29/2024 and that have improved from 02/25/2024. Currently there are patchy consolidations in the right middle lobe some which were present on 11/20/2024 and some that are new. There were no infiltrates on 08/29/2024 in the right middle lobe. Modified barium swallow normal. Sputum has grown out normal chico. 04/28/2025: Home O2 assessment: Final recommendation was 2 L at rest and 5 L with activity. discharged on cefdinir x3 days, azithromycin x2 days, Septra 2 tablets p.o. b.i.d. x3 days, but of SP, guaifenesin 1200 b.i.d., Lasix 20 p.o. q.day, 4 L at night. After discharge respiratory pathogen panel was positive for human metapneumovirus. He was to be evaluated with [facility] ID on 05/02/2025. sputum for AFB collected on 04/27/2025 and 04/28/2025. 05/02/2025: Patient was seen at [facility] infectious Disease Clinic. We have contacted the clinic multiple times to get the note and have been unsuccessful. The patient tells me he has no idea what they said or recommended other than to follow-up in July. 05/12/2025: Seen in the emergency department for progressively worse shortness of breath, sputum production, BNP 3300, COVID, influenza, RSV RT PCR negative. ABG 7.39/40/88 on 2 L nasal cannula. prescribed Septra 1 tablet p.o. q.12 hours x7 days 05/22/2025: Patient called his PCP coughing all day with a little bit of phlegm raspy throat. levofloxacin 750 q.day prescribed X 10 days. 05/29/25: I spoke to the patient and usually is on 2 L at rest and 5 with activity. I spoke to the patient today and he is on 4-5 L at rest with saturations 87%. His saturations with 5 L activity are in the mid 80s. He says he has not gained weight and is not swollen. He has finished 10 days of antibiotics through his PCP. I recommended the patient be evaluated in the emergency department and I recommended that he go to [facility] emergency department so that he could be evaluated by their Pulmonary team and their Infectious Disease team. He voiced understanding. 05/30/2025: Patient presented to [facility] ED with complaints of shortness of breath, exertional hypoxemia. He finished his outpatient Levaquin today. blood pressure 112/47, heart rate 79, saturation 96% on 4 L nasal cannula. Afebrile, creatinine 1.13. White blood cell count 11.8. I spoke to the emergency room and recommended he be transferred to [facility] to be evaluated by the Infectious Disease team and pulmonary team. Patient was accepted but no beds available. MRSA swab negative. Started on ceftriaxone, azithromycin and Septra. Patient given Lasix 40 IV x1. 05/31/2025: Currently the patient tells me he is breathing at his baseline at rest. He has worsening dyspnea on exertion. His cough and phlegm production or better than yesterday. He denies fever, chills, rigors, sweats. He has no hemoptysis. He has no worsening orthopnea, he has stable nocturia every 2 hours at home. When I enter the room he was on 5 L nasal cannula saturations 99%. I decreased him to 4 L nasal cannula saturations were 94%. I decreased him to 2 L nasal cannula saturations were 92%. DATA 04/26/2025: EXAMINATION: CTA chest PE protocol DATE: 04/26/2025 13:46 CDT INDICATION: Shortness of breath TECHNIQUE: Computed tomographic angiography (CTA) of the chest was performed with 100 mL Omnipaque-350 intravenous contrast. The dose-length product was 256.22 mGy-cm. Maximum intensity projection 3D-reconstructions of the aorta and other arteries were constructed by the technologist on a separate workstation. Automated exposure control and iterative reconstruction technique were employed. COMPARISON: Chest x-ray dated 04/25/[address] dated 11/20/2024. FINDINGS: Small right pleural effusion. Trace left pleural effusion. There is mediastinal lymphadenopathy. There is right hilar lymphadenopathy. There is atherosclerosis of the aorta and coronary arteries. Small hiatal hernia. Heart size normal. Pulmonary arteries are enlarged, consistent with pulmonary hypertension. Study is technically adequate without evidence for pulmonary embolism. There is patchy bilateral airspace disease of the right upper, right middle and bilateral lower lobes, consistent with multifocal pneumonia. No endobronchial lesions. There is emphysema. No suspicious pulmonary nodules or masses. Mild thoracic spondylosis. No focal lytic or blastic lesions. IMPRESSION: 1. Multifocal airspace disease, consistent with pneumonia. 2: Bilateral pleural effusions, right greater than left. 3: Mediastinal lymphadenopathy, likely reactive. 4.: Pulmonary artery enlargement, consistent with pulmonary hypertension. 5: Emphysema. My read: I have compared this to CT scans from 11/20/2024 and 08/29/2024 and 02/25/2024. Current CT shows no PE, , Small right pleural effusion, worsening consolidation and infiltrates in the right lower lobe compared to 11/20/2024 and 02/25/2024. Compared to CT scan on 02/25/2024 currently there are some areas of improved consolidation in the right lower lobe and some different areas with worsening consolidations in the right lower lobe. There is unchanged consolidation in the posterior left lower lobe with no change compared to 11/20/2024, 08/29/2024 and that have improved from 02/25/2024. Currently there are patchy consolidations in the right middle lobe some which were present on 11/20/2024 and some that are new. There were no infiltrates on 08/29/2024 in the right middle lobe. 01/02/25: Modified barium swallow: Impression: Moderate dysphagia 11/20/24: EXAMINATION:. Recommendations: Regular but easy to chew diet with regular liquids but patient must use chin tuck posture with all eating and drinking to prevent pharyngeal residual and instances of laryngeal penetration and aspiration. He was referral to outpatient speech therapy. 12/14/24: CRP 3.6, ESR 134, CPK 43, Aspergillus Niger IgE 0.31, very low level. Aspergillus Niger antibody negative, Aspergillus flatus antibody negative. Aspergillus fumigatus antibody negative. Rheumatoid factor 12.9, anti CCP antibody less than 16. TERRA screen positive with an anti-DNA antibody 27 (positive greater than 10), Anca screen negative, hypersensitivity pneumonitis panel negative. 01/24/2025: QuantiFERON gold negative. IgE 691 normal less than 114, rheumatoid factor 12.9. IgG 693, IgM 90, IgA 212, all normal. Aldolase 5.0 CTA chest PE protocol INDICATION: Hypoxia elevated d-dimer COMPARISON: 08/29/2024 and 10/11/2021. FINDINGS: No filling defects within the main or proximal pulmonary arteries. The thoracic aorta is unremarkable. No aneurysmal dilatation or dissection. The heart is of normal size, without pericardial effusion. Panlobular emphysematous disease is identified. Patchy groundglass opacification detected bilaterally. Small bilateral pleural effusions with adjacent compressive atelectasis Multiple subcentimeter areas of decreased attenuation within the liver, unchanged dating back to 10/11/2021. IMPRESSION: No pulmonary embolus. No aneurysmal dilatation or dissection within the thoracic aorta. Small bilateral pleural effusions with adjacent compressive atelectasis. 08/16/2024: Overnight oximetry on 3 L nasal cannula. The report in the computer status overnight oximetry on room air but this is mislabeled as the test was performed on 3 L. Recording duration 8 hours and 39 minutes. Basal saturation 92.1%. High saturation 96%. Low saturation 79%. Time with saturation less than or equal to 88% was 4 minutes and 58 seconds. I will continue oxygen 3 L at night. 06/24/2024: This is a 6 minute walk test. The test was performed and interpreted in accordance with the 2014 ERS/ATS task force guidelines. Of note, patient used to wheeled walker for stability and the testing was performed on his home portable oxygen concentrator at 3 L with pulse dose. Findings: The patient's resting 3 L oxygen saturation measured by pulse oximetry was 95% and heart rate was 80 bpm. Patient ambulated for 137 meters and oxygen saturation remained 91 to 92%. Heart rate at the end of the study was 94 bpm. The patient did not have rest or exertional hypoxemia on 3 L nasal cannula pulse dose with his portable oxygen concentrator. 02/25/24 - CTA chest (ER) - No PE identified. 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 There is patchy consolidation in the right middle and bilateral lower lobes with additional regions of tree-in-bud opacity scattered throughout both lungs consistent with multifocal pneumonia. There is associated bronchial wall thickening and mucous plugging in the bilateral lower lobes. Tiny left pleural effusion. No septal line thickening to suggest pulmonary edema. No pneumothorax. Mild cardiomegaly. Atherosclerotic coronary artery calcifications. No pericardial effusion. 02/25/2024: ABG on 4 L cannula 7.39/35/63 01/15/24 - Home O2 eval - Required 2L/min O2 with ambulation and none at rest. 12/16/23 - PFT The test was performed and results interpreted in accordance with the 2019 and 2005 ATS/ERS Task Force guidelines respectively using the Global Lung Function Initiative-2012 reference equations. Patient demonstrated good effort and cooperation. Reproducibility criteria were met. The quality of the pre bronchodilator spirometry maneuver was Grade A and post bronchodilator spirometry maneuver was Grade A. Findings: Spirometry: There is decreased maximal expiratory airflow at all lung volumes with concave expiratory flow tracing. The contour the inspiratory flow tracing is normal. The pre bronchodilator FVC is 3.33 L, 82% predicted. The pre bronchodilator FEV1 is 2.02 L, 68% predicted. The pre bronchodilator FEV1: FVC ratio 61%. The post bronchodilator FVC is 3.41 L, representing a 2% increase. The post bronchodilator FEV1 is 2.09 L, representing a 3% increase. The post bronchodilator FEV1: FVC ratio 61%. Plethysmography: The total lung capacity is 6.43 L, 89% predicted. The functional residual capacity is 4.14 L, 106% predicted. The residual volume is 3.10 L, 115% predicted. The residual volume: Total lung capacity ratio is 48%. Diffusing capacity: The diffusing capacity unadjusted for hemoglobin and carboxyhemoglobin is 9.0, 37% predicted. The diffusing capacity adjusted for alveolar volume is 2.29, 64% predicted. Comparison to previous pulmonary function testing on 01/01/2022 the post bronchodilator FVC has decreased from 4.38 L to 3.41 L. The post bronchodilator FEV1 has decreased from 3.11 L to 2.09 L. the total lung capacity is decreased from 7.39 L to 6.43 L. The functional residual capacity has decreased from 4.95 L to 4.14 L. The residual volume is unchanged from 2.93 L to 3.10 L. The diffusing capacity unadjusted for hemoglobin and carboxyhemoglobin is decreased from 14.9 to 9.0. The diffusing capacity adjusted for alveolar volume decreased from 2.63 to 2.29 Impression: There is a mild obstructive abnormality. There is no significant improvement after inhaling a single dose of albuterol. The increase in residual volume to total lung volume ratio is consistent with hyperinflation from an obstructive abnormality. The diffusing capacity unadjusted for hemoglobin and carboxyhemoglobin is severely decreased and remains mildly decreased when adjusted for alveolar volume. Compared to prior pulmonary function testing on 01/01/2022 there has been a significant decrease in the FVC, FEV1, total lung capacity, functional residual capacity and diffusing capacity with no significant change in the residual volume. 09/16/23 - Home O2 eval - Required 2L/min O2 with ambulation and none at rest. 01/01/22 - Home O2 eval - Patient did not require supplemental oxygen at rest or with exertion. 01/01/22 - PFTs - Mild obstructive abnormality with normal FEV1 without significant improvement after inhaling a single dose of albuterol. Lung volumes normal. The diffusing capacity unadjusted for hemoglobin is moderately decreased and normalizes when adjusted for alveolar volume. 12/18/21 - Overnight oximetry on room air - Time with saturation less than or equal to 88% was 4.0 minutes. Patient does not qualify for supplemental oxygen at night. 10/10/2021 - ABG on 4L NC - 7.44/43/70. 10/20/21 - Chest XR - Persistent patchy bilateral airspace disease with possible improvement in the left lung, compatible with pneumonia. 10/11/2021 - CTA chest - Extensive bilateral pulmonary infiltrates and likely reactive hilar or mediastinal adenopathy. Small right pleural effusion. No evidence of pulmonary embolism. 10/11/2021 - Echo - LV systolic function mildly reduced, EF 45-50%. Grade I diastolic dysfunction. The inferior wall, inferoseptal wall, basal inferolateral wall, and mid inferolateral wall are hypokinetic. Mild LA enlargement. No pulmonary hypertension. Review of Systems Review of Systems: He is weak, not able to walk to the bathroom. He won't participate with the easy low challenge PT OT at home. He is on morphine for back pain. He has explosive diarrhea alternating with constipation. His son said that he passed a bowel movement that was so large and amazingly horrible looking that he could not believe this came out of a human being. He is on Liness, and has GI issues which has been an issue for years. He has left foot drop which happened 5 years ago when he fell off his porch. He has right hearing loss which is pretty severe, and recently lost a lot of hearing on the left in the last week. He has not had any recent chest pain. His legs are not swelling. He has burning on initiation of urination. He has had a salve to put on the end of his penis for this. All systems reviewed & are unremarkable except as noted in HPI and below PMFSH Past Medical History Medical History (Updated 06/17/25 @ 15:51 by Ameena Vigil MD) Heart failure with mildly reduced ejection fraction Chronic pulmonary aspergillosis Major depressive disorder, recurrent, mild Left foot drop Chronic kidney disease, stage 3 Spinal stenosis, lumbar region without neurogenic claudication Ischemic cardiomyopathy Echocardiogram 09/2021: Mildly reduced left ventricular systolic function EF of 45-50%, grade 1 diastolic dysfunction, inferior wall inferior septal wall basal inferior wall and mid inferior lateral wall hypokinesis with mild left atrial and large SVT (supraventricular tachycardia) 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 History of tobacco use Polio (1951) Other chronic pain Aortic stenosis Mild - Echo 05/15/2022 NSTEMI (non-ST elevated myocardial infarction) (08/2019) Atherosclerotic heart disease of [place] coronary artery without angina pectoris Abdominal aortic aneurysm, without rupture Seen on CT scan on 02/09/2018 Restless legs syndrome Surgical History Surgical History History of tonsillectomy and adenoidectomy History of repair of rotator cuff bilateral History of colonoscopy with polypectomy History of bowel resection due to obstruction Presence of coronary angioplasty implant and graft History of coronary artery stent placement X2 History of mandibular surgery (1986) reconstructive surgery right mandible related to cancer Family History Family History Mother Diabetes mellitus Acute myocardial infarction Father Colon cancer COPD (chronic obstructive pulmonary disease) Sibling Colon cancer Acute myocardial infarction Lung cancer COPD (chronic obstructive pulmonary disease) Sibling COPD (chronic obstructive pulmonary disease) Sibling Congestive heart failure Sibling Dementia Social History Social History Social History: Surrogate medical decision maker: Yessi Morgan, daughter. Code status: Full code. But he states he would not want to be on a ventilator long-term have a tracheostomy or feeding tube. Smoking packs per day: 1.5 Smoking cigarettes per day: 30.0 Years smoked: 55 Smoking pack-years: 82.50 Smoking status: Former smoker Tobacco type: cigarettes Second hand tobacco smoke exposure: No Alcohol intake: never Substance use: never Substance use type: does not use Other substance usage details: quit alcohol in 2010 Last use: Last alcohol use 2010 Do You Feel Safe in your Home?: Yes Lack of Transportation: No Lack of Food: Never True Current Housing: I Have Housing Concerned About Future Housing: No Difficulty Paying Gas/Electric Bills: No Difficulty Paying for Meds: No Currently Unemployed: No Education: High School Diploma/GED Difficulty w/ Childcare or Family Care: No Living arrangements: with family Additional living arrangements comments: . Lives in [place] with son and [id number]. 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: retired Additional occupation/education comments: [employer] Spiritual care concerns: No Agree to blood products: Yes Meds Home Medications and Allergies Home Medications ?Medication ?Instructions ?Recorded ?Confirmed ?Type acetaminophen 500 mg tablet 1,000 mg PO Q6H PRN Pain 03/18/23 06/15/25 History (Tylenol Extra Strength) aspirin 81 mg tablet,delayed 81 mg PO DAILY #90 tabs 06/15/23 06/15/25 Rx release fenofibrate 160 mg tablet 160 mg PO DAILY #90 tabs 09/16/23 06/15/25 Rx nebulizer accessories #1 ea 04/12/24 06/15/25 Rx nebulizer and compressor #1 ea 04/12/24 06/15/25 Rx linaclotide 290 mcg capsule See Rx Instructions .Route 04/28/24 06/15/25 Rx (Linzess) .COMPLEX #90 caps albuterol sulfate 90 mcg/actuation 2 puff inhalation Q4H PRN 10/03/24 06/15/25 Rx aerosol inhaler Shortness Of Breath Or Wheezing #8.5 grams baclofen 10 mg tablet 10 mg PO Q12H PRN muscle spasm 12/02/24 06/15/25 History albuterol sulfate 2.5 mg/3 mL 2.5 mg (3 mL) inhalation Q4H PRN 12/08/24 06/15/25 Rx (0.083 %) solution for nebulization shortness of breath or wheezing #90 mL nitroglycerin 0.4 mg sublingual 0.4 mg sublingual Q5M PRN chest 12/08/24 06/15/25 Rx tablet pain #25 tabs bupropion HCl 150 mg tablet,12 hr 150 mg PO BID #180 tabs 12/28/24 06/15/25 Rx sustained-release metoprolol succinate 50 mg 50 mg PO HS #90 tabs 12/29/24 06/15/25 Rx tablet,extended release 24 hr lorazepam 0.5 mg tablet 0.5 mg PO BID PRN anxiety #60 tabs 03/21/25 06/15/25 Rx tobramycin 0.3 %-dexamethasone 0.1 1 drp EACH EYE QID #10 mL 04/05/25 06/15/25 Rx % eye drops,suspension sulindac 200 mg tablet 200 mg PO BID #180 tabs 04/07/25 06/15/25 Rx atorvastatin 80 mg tablet 80 mg PO DAILY #90 tabs 04/11/25 06/15/25 Rx sertraline 50 mg tablet 50 mg PO DAILY #90 tabs 04/20/25 06/15/25 Rx benzonatate 200 mg capsule See Rx Instructions .Route 04/26/25 06/15/25 Rx .COMPLEX #90 caps glycopyrrolate 9 mcg-formoterol 2 puff inhalation BID #10.7 grams 04/28/25 06/15/25 Rx 4.8 mcg HFA aerosol inhaler (Bevespi Aerosphere) acyclovir 400 mg tablet 400 mg PO TID #21 tabs 05/03/25 06/15/25 Rx hydroxyzine HCl 25 mg tablet 25 mg PO QID PRN anxiety #50 tabs 05/19/25 06/15/25 Rx trazodone 100 mg tablet 100 mg PO HS Insomnia #90 tabs 05/24/25 06/15/25 Rx azithromycin 500 mg tablet 500 mg PO DAILY 06/15/25 06/15/25 History budesonide 160 mcg-glycopyr 9 2 inh inhalation .q12hr 06/15/25 06/15/25 History mcg-formot 4.8 mcg/actuation HFA inhaler (Breztri Aerosphere) esomeprazole magnesium 20 mg 40 mg PO DAILY 06/15/25 06/15/25 History capsule,delayed release ethambutol 400 mg tablet 1,200 mg PO DAILY 06/15/25 06/15/25 History fenofibrate 160 mg tablet 160 mg PO DAILY 06/15/25 06/15/25 History furosemide 20 mg tablet 40 mg PO DAILY 06/15/25 06/15/25 History levofloxacin 750 mg tablet 750 mg PO DAILY 06/15/25 06/15/25 History losartan 25 mg tablet 25 mg PO DAILY 06/15/25 06/15/25 History morphine 30 mg tablet,extended 30 mg PO Q12H PRN pain 06/15/25 06/15/25 History release rifabutin 150 mg capsule 300 mg PO DAILY 06/15/25 06/15/25 History tamsulosin 0.4 mg capsule 0.4 mg PO DAILY 06/15/25 06/15/25 History Allergies Allergy/AdvReac Type Severity Reaction Status Date / Time clonazepam AdvReac Severe Drowsy Verified 05/30/25 19:29 roflumilast (From [facility]) AdvReac Severe Diarrhea Verified 05/30/25 19:29 Vital Signs Vital Signs - 24 hr 06/16/25 14:00 06/16/25 14:30 06/16/25 14:37 Temperature Pulse Rate 70 75 75 Respiratory Rate 16 16 Blood Pressure Pulse Oximetry Oxygen Delivery Oxygen Flow Rate 06/16/25 15:17 06/16/25 15:33 06/16/25 16:00 Temperature 36.6 C Pulse Rate 81 Respiratory Rate 22 H Blood Pressure 124/61 Pulse Oximetry 95 96 Oxygen Delivery Nasal Cannula Nasal Cannula Oxygen Flow Rate 4 4 06/16/25 16:00 06/16/25 18:00 06/16/25 20:00 Temperature 36.3 C L Pulse Rate 81 74 65 Respiratory Rate 20 Blood Pressure 131/55 L Pulse Oximetry 98 Oxygen Delivery Oxygen Flow Rate 06/16/25 20:00 06/16/25 20:00 06/16/25 20:14 Temperature Pulse Rate 71 70 Respiratory Rate Blood Pressure Pulse Oximetry 98 Oxygen Delivery Nasal Cannula Oxygen Flow Rate 4 06/16/25 20:38 06/16/25 20:43 06/16/25 20:47 Temperature Pulse Rate 64 67 Respiratory Rate 16 16 Blood Pressure Pulse Oximetry 96 Oxygen Delivery Nasal Cannula Oxygen Flow Rate 4 06/16/25 21:49 06/17/25 00:00 06/17/25 00:00 Temperature Pulse Rate 68 67 Respiratory Rate Blood Pressure Pulse Oximetry 96 Oxygen Delivery Nasal Cannula Oxygen Flow Rate 4 06/17/25 00:13 06/17/25 02:00 06/17/25 03:31 Temperature 36.5 C 36.5 C Pulse Rate 67 57 L 67 Respiratory Rate 20 20 Blood Pressure 156/60 H 153/58 H Pulse Oximetry 98 99 Oxygen Delivery Oxygen Flow Rate 06/17/25 04:00 06/17/25 04:00 06/17/25 06:00 Temperature Pulse Rate 63 57 L Respiratory Rate Blood Pressure Pulse Oximetry 96 Oxygen Delivery Nasal Cannula Oxygen Flow Rate 4 06/17/25 08:00 06/17/25 08:00 06/17/25 08:00 Temperature 36.8 C Pulse Rate 86 81 Respiratory Rate 24 H Blood Pressure 120/56 L Pulse Oximetry 100 96 Oxygen Delivery Nasal Cannula Oxygen Flow Rate 4 06/17/25 08:31 06/17/25 08:36 06/17/25 10:00 Temperature Pulse Rate 76 79 70 Respiratory Rate 18 18 Blood Pressure Pulse Oximetry 96 Oxygen Delivery Nasal Cannula Oxygen Flow Rate 4 06/17/25 11:40 06/17/25 12:00 06/17/25 12:00 Temperature Pulse Rate 96 Respiratory Rate Blood Pressure Pulse Oximetry 96 Oxygen Delivery Nasal Cannula Nasal Cannula Oxygen Flow Rate 4 4 06/17/25 12:00 Temperature 36.5 C Pulse Rate 90 Respiratory Rate 22 H Blood Pressure 117/65 Pulse Oximetry 95 Oxygen Delivery Oxygen Flow Rate Exam Narrative: GEN: Alert, oriented, not in distress. He has hearing loss worse on the right side. Nasal cannula O2. He has Breathe Right nasal strips on the bridge of his nose due to right nostril collapsing easily. This has been a problem for years. Right nostril: not as patent as the left; dried clear to yellow secretions in the right nostril. HEENT: pupils are equal, EOMI, symmetrical face; oral membranes parched, upper and lower dentures, Mallampati II airway NECK: Trachea is midline, prior jaw surgery CHEST: Equal air entry, harsh rhonchi and decreased breath sounds right base worse than left no wheezing CV: distant S1S2 no m/g/r ABD : (+) bowel sounds Extremities : no clubbing, cyanosis, or edema; left foot is weak; he has left foot drop from accident 5 years ago when he fell off the front porch PSYCH: Hearing is not great, right years really bad left is moderately bad; he can give some history, son helps a lot. He is pleasant, weak, deconditioned. Results Laboratory Findings 06/17/25 03:47 06/17/25 03:47 ABG, PT/INR, D-dimer: ABG ABG pH 7.491 (7.350-7.450) H 06/15/25 13:33 ABG pCO2 34.8 mmHg (35.0-45.0) L 06/15/25 13:33 ABG pO2 76.8 mmHg (80.0-100.0) L 06/15/25 13:33 ABG O2 Saturation 96.3 % (95.0-100.0) 06/15/25 13:33 Abnormal lab findings: Abnormal Labs 06/15/25 06/15/25 06/16/25 13:07 13:33 04:16 RBC 3.31 L 2.90 L Hgb 9.5 L 8.2 L Hct 30.7 L 26.9 L MCHC 30.9 L 30.5 L RDW 15.2 H 15.3 H Immature Gran % (Auto) 0.9 H 1.3 H Neut % (Auto) 78.5 H 73.3 H Lymph % (Auto) 13.7 L 13.0 L [place] % (Auto) 12.2 H Baso % (Auto) 0.1 L Lymph # (Auto) 0.61 L Abs Immat Gran (auto) 0.07 H 0.06 H ABG pH 7.491 H ABG pCO2 34.8 L ABG pO2 76.8 L ABG O2 Content 13.3 L Total Hemoglobin 9.9 L Sodium 135 L BUN Glucose 171 H 131 H Total Bilirubin Alkaline Phosphatase 137 H NT-Pro-B Natriuret Pep 1810 H Albumin 3.4 L 06/17/25 03:47 RBC 3.06 L Hgb 8.6 L Hct 29.0 L MCHC 29.7 L RDW 15.4 H Immature Gran % (Auto) 0.9 H Neut % (Auto) 73.7 H Lymph % (Auto) 15.1 L [place] % (Auto) 9.9 H Baso % (Auto) Lymph # (Auto) 0.82 L Abs Immat Gran (auto) 0.05 H ABG pH ABG pCO2 ABG pO2 ABG O2 Content Total Hemoglobin Sodium 132 L BUN 21 H Glucose Total Bilirubin 0.1 L Alkaline Phosphatase NT-Pro-B Natriuret Pep Albumin 3.3 L
--- NOTE | 2025-06-17 13:56 | P.PNIM_ITS ---
Progress Note: A&P Assessment and Plan (1) SNEHA (mycobacterium avium-intracellulare): Code(s): A31.0 - Pulmonary mycobacterial infection Status: Acute Assessment and Plan: Pulmonology consulted Continue home antibiotic: ethambutol hcl, rifabutin, acyclovir, azithromycin, and Levaquin DuoNeb Transfer to [facility] for pulmonology when bed is available Patient will bring med from home (2) Combined systolic and diastolic congestive heart failure: Qualifiers: Heart failure chronicity: acute on chronic Qualified Code(s): I50.43 - Acute on chronic combined systolic (congestive) and diastolic (congestive) heart failure Code(s): I50.40 - Unspecified combined systolic (congestive) and diastolic (congestive) heart failure Status: Acute Assessment and Plan: Acute on chronic 40 of IV Lasix daily Daily weight (3) Chronic pulmonary aspergillosis: Code(s): B44.1 - Other pulmonary aspergillosis Status: Acute Assessment and Plan: See plan above (4) Chronic hypoxic respiratory failure, on home oxygen therapy: Code(s): J96.11 - Chronic respiratory failure with hypoxia; Z99.81 - Dependence on supplemental oxygen Status: Acute Assessment and Plan: Acute on chronic, on 4 L O2 at home found to be 70% on pulse ox by EMS See plan above Solu-Medrol x1 Prednisone (5) HTN (hypertension): Qualifiers: Hypertension type: primary hypertension Qualified Code(s): I10 - Essential (primary) hypertension Code(s): I10 - Essential (primary) hypertension Status: Chronic Assessment and Plan: Continue losartan (6) Hyperlipidemia: Qualifiers: Hyperlipidemia type: mixed hyperlipidemia Qualified Code(s): E78.2 - Mixed hyperlipidemia Code(s): E78.5 - Hyperlipidemia, unspecified Status: Acute Assessment and Plan: Continue home medication (7) Chronic anemia: Code(s): D64.9 - Anemia, unspecified Status: Acute Assessment and Plan: At baseline No signs of acute bleeding CBC in a.m. (8) NSTEMI (non-ST elevated myocardial infarction): Onset Date: 08/2019 Code(s): I21.4 - Non-ST elevation (NSTEMI) myocardial infarction Status: Acute Assessment and Plan: 08/2019 Continue nitro, metoprolol, losartan, and aspirin Plan Awaiting transfer to [facility] Subjective Date/time seen: 06/17/25 13:56 Interval history: Comfortable at bedside Review of Systems Review of Systems: 12 systems were reviewed and are negativ e except for as per HPI. Exam Narrative: General: well appearing, appears stated age. HEENT: normocephalic, atraumatic. Mucous membranes moist. EOMI, PERRLA, bilateral sclera anicteric, no conjunctival injection. Neck supple without JVD, lymphadenopathy, or bruit. Respiratory: Core to ascultation bilaterally. Cardiovascular: Regular rate and rhythm, normal S1-S2 upon ascultation. No murmurs, rubs, or clicks. PMI is nondisplaced, capillary refill less than 3 second. Abdomen: Soft, round, no pulsatile masses, nondistended and nontender. No rebound, no guarding. No CVA tenderness, no hepatosplenomegaly. Bowel sounds present to all four quadrants. No high pitch or tinkling sounds, resonant to percussion. Extremities: No cyanosis, clubbing, or edema present. Pulses are palpable 2/2. Active ROM to all four extremities. Neuro: Alert and orientated x 4. PERRLA. Cranial nerves 2-12 intact without focal deficit. Skin: Warm, dry, and intact, without rash, erythema, or lesion. Psych: pleasant, cooperative, normal speech, normal affect, no hallucinations, no dysarthia Objective Data Vital Signs Vital Signs: Vital Signs - 24 hr 06/16/25 14:00 06/16/25 14:30 06/16/25 14:37 Temperature Pulse Rate 70 75 75 Respiratory Rate 16 16 Blood Pressure Pulse Oximetry Oxygen Delivery Oxygen Flow Rate 06/16/25 15:17 06/16/25 15:33 06/16/25 16:00 Temperature 97.8 F Pulse Rate 81 Respiratory Rate 22 H Blood Pressure 124/61 Pulse Oximetry 95 96 Oxygen Delivery Nasal Cannula Nasal Cannula Oxygen Flow Rate 4 4 06/16/25 16:00 06/16/25 18:00 06/16/25 20:00 Temperature 97.4 F L Pulse Rate 81 74 65 Respiratory Rate 20 Blood Pressure 131/55 L Pulse Oximetry 98 Oxygen Delivery Oxygen Flow Rate 06/16/25 20:00 06/16/25 20:00 06/16/25 20:14 Temperature Pulse Rate 71 70 Respiratory Rate Blood Pressure Pulse Oximetry 98 Oxygen Delivery Nasal Cannula Oxygen Flow Rate 4 06/16/25 20:38 06/16/25 20:43 06/16/25 20:47 Temperature Pulse Rate 64 67 Respiratory Rate 16 16 Blood Pressure Pulse Oximetry 96 Oxygen Delivery Nasal Cannula Oxygen Flow Rate 4 06/16/25 21:49 06/17/25 00:00 06/17/25 00:00 Temperature Pulse Rate 68 67 Respiratory Rate Blood Pressure Pulse Oximetry 96 Oxygen Delivery Nasal Cannula Oxygen Flow Rate 4 06/17/25 00:13 06/17/25 02:00 06/17/25 03:31 Temperature 97.7 F 97.7 F Pulse Rate 67 57 L 67 Respiratory Rate 20 20 Blood Pressure 156/60 H 153/58 H Pulse Oximetry 98 99 Oxygen Delivery Oxygen Flow Rate 06/17/25 04:00 06/17/25 04:00 06/17/25 06:00 Temperature Pulse Rate 63 57 L Respiratory Rate Blood Pressure Pulse Oximetry 96 Oxygen Delivery Nasal Cannula Oxygen Flow Rate 4 06/17/25 08:00 06/17/25 08:00 06/17/25 08:00 Temperature 98.2 F Pulse Rate 86 81 Respiratory Rate 24 H Blood Pressure 120/56 L Pulse Oximetry 100 96 Oxygen Delivery Nasal Cannula Oxygen Flow Rate 4 06/17/25 08:31 06/17/25 08:36 06/17/25 10:00 Temperature Pulse Rate 76 79 70 Respiratory Rate 18 18 Blood Pressure Pulse Oximetry 96 Oxygen Delivery Nasal Cannula Oxygen Flow Rate 4 06/17/25 11:40 06/17/25 12:00 06/17/25 12:00 Temperature Pulse Rate 96 Respiratory Rate Blood Pressure Pulse Oximetry 96 Oxygen Delivery Nasal Cannula Nasal Cannula Oxygen Flow Rate 4 4 06/17/25 12:00 Temperature 97.7 F Pulse Rate 90 Respiratory Rate 22 H Blood Pressure 117/65 Pulse Oximetry 95 Oxygen Delivery Oxygen Flow Rate Intake/Output Intake/Output: Intake & Output 06/14/25 06/15/25 06/16/25 06/17/25 23:59 23:59 23:59 23:59 Intake Total 540 2237 420 Output Total 2600 1850 Balance 107 [phone] Meds/Results Medications: Active Medications Generic Name Dose Route Start Last Admin Trade Name Freq PRN Reason Stop Dose Admin Acetaminophen 650 mg 06/15/25 18:22 Acetaminophen 325 Mg Tablet PO Q4H PRN Mild Pain (1-3) or Fever Acyclovir 400 mg 06/16/25 21:00 06/17/25 12:17 Acyclovir 400 Mg Tablet PO 400 mg TID GIOVANNY Administration Albuterol/Ipratropium 3 ml 06/15/25 20:00 06/17/25 08:29 Ipratropium 0.5 Mg/Albuterol Sulfate 2.5 Mg Ampul.Neb 3 Ml INHALATION 3 ml Q6HRT GIOVANNY Administration Aspirin 81 mg 06/16/25 09:00 06/17/25 08:46 Aspirin 81 Mg Enteric Tablet PO 81 mg DAILY GIOVANNY Administration Atorvastatin Calcium 80 mg 06/16/25 09:00 06/17/25 08:46 Atorvastatin 40 Mg Tablet PO 80 mg DAILY GIOVANNY Administration Azithromycin 500 mg 06/16/25 09:00 06/17/25 08:46 Azithromycin 250 Mg Tablet PO 500 mg DAILY GIOVANNY Administration Baclofen 10 mg 06/15/25 18:01 Baclofen 10 Mg Tablet PO Q12H PRN muscle spasm Benzonatate 200 mg 06/16/25 09:00 Benzonatate 100 Mg Capsule PO TID PRN Cough Bupropion HCl 150 mg 06/16/25 21:00 06/17/25 08:46 Bupropion Hcl Sr (12 Hr) 150 Mg Tab PO 150 mg Q12HR GIOVANNY Administration Docusate Sodium 100 mg 06/16/25 09:00 06/17/25 08:46 Docusate Sodium 100 Mg Capsule PO 100 mg BID GIOVANNY Administration Enoxaparin Sodium 40 mg 06/16/25 09:00 06/17/25 08:47 Enoxaparin 40 Mg/0.4 Ml Syringe SUB-Q 40 mg DAILY GIOVANNY Administration Ethambutol HCl 1,200 mg 06/16/25 09:00 06/17/25 08:46 Ethambutol Hcl 400 Mg Tablet PO 1,200 mg DAILY GIOVANNY Administration Fenofibrate 145 mg 06/16/25 09:00 06/17/25 08:46 Fenofibrate Nanocrystallized 145 Mg Tablet PO 145 mg QAM GIOVANNY Administration Fluticasone/Umeclidinium/Vilanterol 1 puff 06/16/25 08:00 06/17/25 08:31 Fluticasone/Umeclidin/Vilanter 100-62.5-25 Mcg Ellipta INHALATION 1 puff DAILYRT GIOVANNY Administration Furosemide 20 mg 06/16/25 09:00 06/17/25 08:47 Furosemide Inj 40 Mg/4 Ml Vial IV PUSH 20 mg DAILY GIOVANNY Administration Levofloxacin 750 mg 06/16/25 09:00 06/17/25 08:46 Levofloxacin 750 Mg Tablet PO 750 mg DAILY GIOVANNY Administration Linaclotide 290 mcg 06/16/25 06:30 06/17/25 05:44 Linaclotide 145 Mcg Capsule PO 290 mcg DAILY@0630 GIOVANNY Administration Lorazepam 0.5 mg 06/15/25 18:01 06/17/25 12:17 Lorazepam (*Crx) 0.5 Mg Tablet PO 0.5 mg BID PRN Administration anxiety Losartan Potassium 25 mg 06/16/25 09:00 06/17/25 08:47 Losartan Potassium 25 Mg Tablet PO 25 mg DAILY GIOVANNY Administration Metoprolol Succinate 50 mg 06/15/25 21:00 06/16/25 20:14 Metoprolol Succinate Ext Rel 50 Mg Tabcr PO 50 mg HS GIOVANNY Administration Morphine Sulfate 30 mg 06/16/25 09:00 06/17/25 08:47 Morphine Sulfate (*Crx) 30 Mg Tabcr PO 30 mg DAILY GIOVANNY Administration Nitroglycerin 0.4 mg 06/15/25 18:20 Nitroglycerin Sl 0.4 Mg Tablet SUBLINGUAL Q5M PRN chest pain Rifabutin 150 Mg 300 mg 06/17/25 09:00 06/17/25 08:48 Capsule Home Med PO 06/28/25 08:59 300 mg DAILY GIOVANNY Administration Sulindac 200 Mg 200 mg 06/16/25 17:00 06/17/25 08:48 Tablet Home Med PO 07/16/25 16:59 200 mg BID GIOVANNY Administration Pantoprazole Sodium 40 mg 06/16/25 09:00 06/17/25 08:46 Pantoprazole 40 Mg Tablet PO 40 mg QAM GIOVANNY Administration Prednisone 40 mg 06/16/25 08:00 06/17/25 08:46 Prednisone 20 Mg Tablet PO 40 mg DAILY@0800 GIOVANNY Administration Sertraline HCl 50 mg 06/16/25 09:00 06/17/25 08:46 Sertraline Hcl 50 Mg Tablet PO 50 mg DAILY GIOVANNY Administration Tamsulosin HCl 0.4 mg 06/16/25 09:00 06/17/25 08:47 Tamsulosin Hcl 0.4 Mg Capsule PO 0.4 mg DAILY GIOVANNY Administration Tobramycin/Dexamethasone 1 drop 06/15/25 21:00 06/17/25 12:17 Tobramycin/Dexamethasone Op 2.5 Ml Btl EACH EYE 1 drop QID GIOVANNY Administration Trazodone HCl 100 mg 06/15/25 21:00 06/16/25 20:14 Trazodone Hcl 50 Mg Tablet PO 100 mg HS GIOVANNY Administration Radiology Results: ITS Impressions Chest X-Ray 06/15/25 13:32 IMPRESSION: Worsening bibasilar airspace disease, right greater than left. This may be the result of pulmonary edema versus pneumonia in appropriate clinical settings. Clinical correlation is recommended. Short-term follow-up chest radiograph is r ecommended after appropriate clinical therapy to document resolution. Labs Labs: Laboratory Results - last 24 hr 06/17/25 03:47 WBC 5.4 RBC 3.06 L Hgb 8.6 L Hct 29.0 L MCV 94.8 MCH 28.1 MCHC 29.7 L RDW 15.4 H Plt Count 190 MPV 10.1 Immature Gran % (Auto) 0.9 H Neut % (Auto) 73.7 H Lymph % (Auto) 15.1 L [place] % (Auto) 9.9 H Eos % (Auto) 0.0 Baso % (Auto) 0.4 Lymph # (Auto) 0.82 L [place] # (Auto) 0.5 Eos # (Auto) 0.0 Baso # (Auto) 0.0 Abs Immat Gran (auto) 0.05 H Absolute Neuts (auto) 4.0 Absolute Nucleated RBC 0.000 Nucleated RBC % 0.0 Sodium 132 L Potassium 4.2 Chloride 98 Carbon Dioxide 29 Anion Gap 5 BUN 21 H Creatinine 0.92 Estim Creat Clear Calc 59 Estimated GFR > 60 Glucose 92 Calcium 9.2 Magnesium 1.9 Total Bilirubin 0.1 L AST 54 ALT 28 Alkaline Phosphatase 126 Total Protein 6.8 Albumin 3.3 L Quality VTE Prophylaxis VTE prophylaxis: mechanical ordered and pharmacologic ordered
[2025-06-17] MEDS: METOPROLOL SUCCINATE EXT REL 50 MG TABCR PO (20:23)
[2025-06-17] MEDS: busPIRone HCL 2.5 MG TABLET PO (20:23)
[2025-06-17] MEDS: ACETYLCYSTEINE 20% INHAL SOLN 800 MG/4 ML VIAL 400 MG INHALATION (21:23)
[2025-06-18] VITALS (21 sets, daily range): BP systolic 99–145; BP diastolic 51–71; PULSE 65–92; RESP 15–24; TEMP 36.1–36.9; O2SAT 96–100
[2025-06-18] MEDS: IPRATROPIUM 0.5 MG/ALBUTEROL SULFATE 2.5 MG AMPUL.NEB 3 ML INHALATION ×4 (02:16→20:04)
[2025-06-18 02:18] LABS: Add Urine Microscopic? NO; Appearance Urine Clear (Clear); Glucose Urine UA Negative (Negative); Leukocyte Esterase Ur Negative LEU/UL (Negative); Nitrate Urine Negative (Negative); Specific Grav Ur 1.011 (1.001-1.035)
[2025-06-18] MEDS: ACETYLCYSTEINE 20% INHAL SOLN 800 MG/4 ML VIAL 400 MG INHALATION ×3 (08:05→20:05)
[2025-06-18] MEDS: FLUTICASONE/UMECLIDIN/VILANTER 100-62.5-25 MCG ELLIPTA 1 PUFF INHALATION (08:06)
[2025-06-18] MEDS: busPIRone HCL 2.5 MG TABLET PO ×2 (09:05→21:47)
[2025-06-18] MEDS: ATORVASTATIN 40 MG TABLET 80 MG PO (09:07)
[2025-06-18] MEDS: TOBRAMYCIN/DEXAMETHASONE OP 2.5 ML BTL 1 DROP EACH EYE ×4 (09:07→21:48)
[2025-06-18] MEDS: DOCUSATE SODIUM 100 MG CAPSULE PO ×2 (09:07→17:31)
[2025-06-18] MEDS: ETHAMBUTOL HCL 400 MG TABLET 1200 MG PO (09:07)
[2025-06-18] MEDS: SERTRALINE HCL 50 MG TABLET PO (09:07)
[2025-06-18] MEDS: ASPIRIN 81 MG ENTERIC TABLET PO (09:07)
[2025-06-18] MEDS: buPROPion HCL SR (12 HR) 150 MG TAB PO ×2 (09:07→21:47)
[2025-06-18] MEDS: LOSARTAN POTASSIUM 25 MG TABLET PO (09:08)
[2025-06-18] MEDS: RIFABUTIN 150 MG 300 EACH PO (09:08)
[2025-06-18] MEDS: PANTOPRAZOLE 40 MG TABLET PO (09:08)
[2025-06-18] MEDS: ENOXAPARIN 40 MG/0.4 ML SYRINGE SUB-Q (09:08)
[2025-06-18] MEDS: ACYCLOVIR 400 MG TABLET PO ×3 (09:08→17:31)
[2025-06-18] MEDS: TAMSULOSIN HCL 0.4 MG CAPSULE PO (09:08)
[2025-06-18] MEDS: FENOFIBRATE NANOCRYSTALLIZED 145 MG TABLET PO (09:08)
[2025-06-18] MEDS: MORPHINE SULFATE (*CRX) 30 MG TABCR PO (09:08)
[2025-06-18] MEDS: FUROSEMIDE INJ 40 MG/4 ML VIAL 20 MG IV PUSH (09:08)
[2025-06-18] MEDS: SULINDAC 200 MG 200 EACH PO ×2 (09:09→17:32)
[2025-06-18 09:14] LABS: Iron 75 ug/dL (49-181)
[2025-06-18 10:05] LABS: Percent Iron Saturation 36 % (20-50)
--- NOTE | 2025-06-18 13:55 | PC.NURSE ---
This patient, Russell Morse, was transferred to [facility] on 06/18/25 at 1340. Personal belongings sent with patient. Report given to MARJAN Lewis at 1323. Appropriate documentation sent with patient. Patient left resting in bed with no complaints at this time. Call light and personal items in reach. Bed low and locked. Rea Ibarra RN
--- NOTE | 2025-06-18 19:44 | PC.NURSE ---
On 06/18/25, the MAIL FORWARDING SYSTEM MARKUP CLERK, Debbie Mendes, provided care and completed [employer] documentation on this patient. I have reviewed the MAIL FORWARDING SYSTEM MARKUP CLERK's documentation and agree with the findings.
[2025-06-18] MEDS: SODIUM CHLOR 3% 15 ML NEB (RESPIRATORY THERAPY) 5 ML INHALATION (20:05)
[2025-06-18] MEDS: LORazepam (*CRX) 0.5 MG TABLET PO (21:47)
[2025-06-18] MEDS: METOPROLOL SUCCINATE EXT REL 50 MG TABCR PO (21:47)
[2025-06-19] VITALS (12 sets, daily range): BP systolic 104–138; BP diastolic 50–62; PULSE 73–95; RESP 16–22; TEMP 36.2–36.6; O2SAT 93–97
[2025-06-19] MEDS: IPRATROPIUM 0.5 MG/ALBUTEROL SULFATE 2.5 MG AMPUL.NEB 3 ML INHALATION ×4 (01:42→21:22)
[2025-06-19] MEDS: SODIUM CHLOR 3% 15 ML NEB (RESPIRATORY THERAPY) 5 ML INHALATION ×3 (08:05→21:22)
[2025-06-19] MEDS: FLUTICASONE/UMECLIDIN/VILANTER 100-62.5-25 MCG ELLIPTA 1 PUFF INHALATION (08:06)
[2025-06-19] MEDS: ACETYLCYSTEINE 20% INHAL SOLN 800 MG/4 ML VIAL 400 MG INHALATION ×3 (08:06→21:22)
--- NOTE | 2025-06-19 08:38 | P.CDI_ITS ---
CDI Query Clarification Request BMI: 22.5 Nutritional Diagnostic Statement: Please refer to the comprehensive nutrition assessment for further information. If you agree with diagnosis of Severe protein calorie malnutrition related to inadequate energy intake as evidenced by poor po intake for greater than 1 month, a significant weight loss of -8.5% x 2 months, and NFPE findings of severe subcutaneous fat loss (cheeks) and severe muscle wasting (buddhist, clavicles). Please specify severity if known: * Mild * Moderate * Severe * Other/Unknown <Sadie Gilmore RN - Last Filed: 06/19/25 08:39> Clarified Diagnosis Clarified Diagnosis: * Severe <Delvin Rivera MD - Last Filed: 06/19/25 09:25>
[2025-06-19] MEDS: TAMSULOSIN HCL 0.4 MG CAPSULE PO (09:58)
[2025-06-19] MEDS: ATORVASTATIN 40 MG TABLET 80 MG PO (09:58)
[2025-06-19] MEDS: busPIRone HCL 2.5 MG TABLET PO ×2 (09:58→20:40)
[2025-06-19] MEDS: ASPIRIN 81 MG ENTERIC TABLET PO (09:58)
[2025-06-19] MEDS: FUROSEMIDE INJ 40 MG/4 ML VIAL 20 MG IV PUSH (09:58)
[2025-06-19] MEDS: ACYCLOVIR 400 MG TABLET PO ×3 (09:59→17:48)
[2025-06-19] MEDS: PANTOPRAZOLE 40 MG TABLET PO (09:59)
[2025-06-19] MEDS: LOSARTAN POTASSIUM 25 MG TABLET PO (09:59)
[2025-06-19] MEDS: SERTRALINE HCL 50 MG TABLET PO (09:59)
[2025-06-19] MEDS: FENOFIBRATE NANOCRYSTALLIZED 145 MG TABLET PO (09:59)
[2025-06-19] MEDS: ETHAMBUTOL HCL 400 MG TABLET 1200 MG PO (09:59)
[2025-06-19] MEDS: buPROPion HCL SR (12 HR) 150 MG TAB PO ×2 (09:59→20:39)
[2025-06-19] MEDS: MORPHINE SULFATE (*CRX) 30 MG TABCR PO (09:59)
[2025-06-19] MEDS: DOCUSATE SODIUM 100 MG CAPSULE PO ×2 (09:59→17:48)
[2025-06-19] MEDS: ENOXAPARIN 40 MG/0.4 ML SYRINGE SUB-Q (10:00)
[2025-06-19] MEDS: RIFABUTIN 150 MG 300 EACH PO (10:00)
[2025-06-19] MEDS: SULINDAC 200 MG 200 EACH PO ×2 (10:00→17:49)
[2025-06-19] MEDS: TOBRAMYCIN/DEXAMETHASONE OP 2.5 ML BTL 1 DROP EACH EYE ×4 (10:00→20:40)
--- NOTE | 2025-06-19 11:05 | PCOTNOTE ---
Patient just completed PT, wants to rest, requested to come back later this afternoon.
[2025-06-19 11:35] LABS: Add Urine Microscopic? NO; Appearance Urine Clear (Clear); Glucose Urine UA Negative (Negative); Leukocyte Esterase Ur Negative LEU/UL (Negative); Nitrate Urine Negative (Negative); Specific Grav Ur 1.011 (1.001-1.035)
--- NOTE | 2025-06-19 14:34 | P.PNIM_ITS ---
Progress Note: A&P Assessment and Plan (1) SNEHA (mycobacterium avium-intracellulare): Code(s): A31.0 - Pulmonary mycobacterial infection Status: Acute Assessment and Plan: Continue home antibiotic: ethambutol hcl, rifabutin, acyclovir, Completed levaquin DuoNeb [facility] evaluated and canceled transfer to [facility] care (2) Combined systolic and diastolic congestive heart failure: Qualifiers: Heart failure chronicity: acute on chronic Qualified Code(s): I50.43 - Acute on chronic combined systolic (congestive) and diastolic (congestive) heart failure Code(s): I50.40 - Unspecified combined systolic (congestive) and diastolic (congestive) heart failure Status: Acute Assessment and Plan: Acute on chronic 40 of IV Lasix daily Daily weight (3) Chronic pulmonary aspergillosis: Code(s): B44.1 - Other pulmonary aspergillosis Status: Acute Assessment and Plan: See plan above (4) Chronic hypoxic respiratory failure, on home oxygen therapy: Code(s): J96.11 - Chronic respiratory failure with hypoxia; Z99.81 - Dependence on supplemental oxygen Status: Acute Assessment and Plan: Acute on chronic, on 4 L O2 at home found to be 70% on pulse ox by EMS See plan above Solu-Medrol x1 Prednisone (5) HTN (hypertension): Qualifiers: Hypertension type: primary hypertension Qualified Code(s): I10 - Essential (primary) hypertension Code(s): I10 - Essential (primary) hypertension Status: Chronic Assessment and Plan: Continue losartan (6) Hyperlipidemia: Qualifiers: Hyperlipidemia type: mixed hyperlipidemia Qualified Code(s): E78.2 - Mixed hyperlipidemia Code(s): E78.5 - Hyperlipidemia, unspecified Status: Acute Assessment and Plan: Continue home medication (7) Chronic anemia: Code(s): D64.9 - Anemia, unspecified Status: Acute Assessment and Plan: At baseline No signs of acute bleeding CBC in a.m. (8) NSTEMI (non-ST elevated myocardial infarction): Onset Date: 08/2019 Code(s): I21.4 - Non-ST elevation (NSTEMI) myocardial infarction Status: Acute Assessment and Plan: 08/2019 Continue nitro, metoprolol, losartan, and aspirin Plan Awaiting placement to Rehab DVT prophylaxis on Sq Lovenox Subjective Date/time seen: 06/18/25 14:34 Interval history: Comfortable at bedside Pulmonology evaluted and noted no need for transfer and patient awaiting discharge to Rehab/SNF Review of Systems Review of Systems: 12 systems were reviewed and are negativ e except for as per HPI. Exam Narrative: General: well appearing, appears stated age. HEENT: normocephalic, atraumatic. Mucous membranes moist. EOMI, PERRLA, bilateral sclera anicteric, no conjunctival injection. Neck supple without JVD, lymphadenopathy, or bruit. Respiratory: Core to ascultation bilaterally. Cardiovascular: Regular rate and rhythm, normal S1-S2 upon ascultation. No murm urs, rubs, or clicks. PMI is nondisplaced, capillary refill less than 3 second. Abdomen: Soft, round, no pulsatile masses, nondistended and nontender. No rebound, no guarding. No CVA tenderness, no hepatosplenomegaly. Bowel sounds present to all four quadrants. No high pitch or tinkling sounds, resonant to percussion. Extremities: No cyanosis, clubbing, or edema present. Pulses are palpable 2/2. Active ROM to all four extremities. Neuro: Alert and orientated x 4. PERRLA. Cranial nerves 2-12 intact without focal deficit. Skin: Warm, dry, and intact, without rash, erythema, or lesion. Psych: pleasant, cooperative, normal speech, normal affect, no hallucinations, no dysarthia Objective Data Vital Signs Vital Signs: Vital Signs - 24 hr 06/18/25 16:00 06/18/25 20:00 06/18/25 20:05 Temperature 98.2 F Pulse Rate 72 77 78 Respiratory Rate 18 18 18 Blood Pressure 99/58 L Pulse Oximetry 96 96 Oxygen Delivery Nasal Cannula Oxygen Flow Rate 4 Fraction of Inspired Oxygen 36 06/18/25 20:05 06/18/25 20:20 06/18/25 21:47 Temperature Pulse Rate 75 77 Respiratory Rate 18 Blood Pressure Pulse Oximetry 96 Oxygen Delivery Nasal Cannula Oxygen Flow Rate 4 Fraction of Inspired Oxygen 06/18/25 22:00 06/19/25 01:42 06/19/25 01:53 Temperature 96.9 F L Pulse Rate 77 77 76 Respiratory Rate 18 18 18 Blood Pressure 129/71 Pulse Oximetry 98 Oxygen Delivery Oxygen Flow Rate Fraction of Inspired Oxygen 06/19/25 05:58 06/19/25 08:07 06/19/25 08:07 Temperature 97.1 F L Pulse Rate 75 95 Respiratory Rate 16 22 H Blood Pressure 138/62 Pulse Oximetry 97 93 Oxygen Delivery Nasal Cannula Oxygen Flow Rate 4 Fraction of Inspired Oxygen 06/19/25 08:24 06/19/25 10:00 06/19/25 14:00 Temperature 97.9 F Pulse Rate 88 88 Respiratory Rate 22 H 18 Blood Pressure 104/50 L Pulse Oximetry 93 96 Oxygen Delivery Nasal Cannula Oxygen Flow Rate 4 Fraction of Inspired Oxygen 06/19/25 14:13 Temperature Pulse Rate 91 Respiratory Rate 20 Blood Pressure Pulse Oximetry Oxygen Delivery Oxygen Flow Rate Fraction of Inspired Oxygen Intake/Output Intake/Output: Intake & Output 06/16/25 06/17/25 06/18/25 06/19/25 23:59 23:59 23:59 23:59 Intake Total 2237 1480 2210 680 Output Total 2600 3350 1110 Balance -363 [facility]0 1100 680 Meds/Results Medications: Active Medications Generic Name Dose Route Start Last Admin Trade Name Freq PRN Reason Stop Dose Admin Acetaminophen 650 mg 06/15/25 18:22 Acetaminophen 325 Mg Tablet PO Q4H PRN Mild Pain (1-3) or Fever Acetylcysteine 400 mg 06/17/25 20:00 06/19/25 14:10 Acetylcysteine 20% Inhal Soln 800 Mg/4 Ml Vial INHALATION 400 mg TIDRT GIOVANNY Administration Acyclovir 400 mg 06/16/25 21:00 06/19/25 13:11 Acyclovir 400 Mg Tablet PO 400 mg TID [facility] Administration Albuterol/Ipratropium 3 ml 06/15/25 20:00 06/19/25 14:09 Ipratropium 0.5 Mg/Albuterol Sulfate 2.5 Mg Ampul.Neb 3 Ml INHALATION 3 ml Q6HRT GIOVANNY Administration Aspirin 81 mg 06/16/25 09:00 06/19/25 09:58 Aspirin 81 Mg Enteric Tablet PO 81 mg DAILY GIOVANNY Administration Atorvastatin Calcium 80 mg 06/16/25 09:00 06/19/25 09:58 Atorvastatin 40 Mg Tablet PO 80 mg DAILY GIOVANNY Administration Baclofen 10 mg 06/15/25 18:01 Baclofen 10 Mg Tablet PO Q12H PRN muscle spasm Benzonatate 200 mg 06/16/25 09:00 Benzonatate 100 Mg Capsule PO TID PRN Cough Bupropion HCl 150 mg 06/16/25 21:00 06/19/25 09:59 Bupropion Hcl Sr (12 Hr) 150 Mg Tab PO 150 mg Q12HR GIOVANNY Administration Buspirone HCl 2.5 mg 06/17/25 21:00 06/19/25 09:58 Buspirone Hcl 2.5 Mg Tablet PO 2.5 mg Q12HR GIOVANNY Administration Docusate Sodium 100 mg 06/16/25 09:00 06/19/25 09:59 Docusate Sodium 100 Mg Capsule PO 100 mg BID GIOVANNY Administration Enoxaparin Sodium 40 mg 06/16/25 09:00 06/19/25 10:00 Enoxaparin 40 Mg/0.4 Ml Syringe SUB-Q 40 mg DAILY GIOVANNY Administration Ethambutol HCl 1,200 mg 06/16/25 09:00 06/19/25 09:59 Ethambutol Hcl 400 Mg Tablet PO 1,200 mg DAILY GIOVANNY Administration Fenofibrate 145 mg 06/16/25 09:00 06/19/25 09:59 Fenofibrate Nanocrystallized 145 Mg Tablet PO 145 mg QAM GIOVANNY Administration Fluticasone/Umeclidinium/Vilanterol 1 puff 06/16/25 08:00 06/19/25 08:06 Fluticasone/Umeclidin/Vilanter 100-62.5-25 Mcg Ellipta INHALATION 1 puff DAILYRT GIOVANNY Administration Furosemide 20 mg 06/16/25 09:00 06/19/25 09:58 Furosemide Inj 40 Mg/4 Ml Vial IV PUSH 20 mg DAILY GIOVANNY Administration Hydroxyzine HCl 25 mg 06/17/25 19:54 Hydroxyzine Hcl 25 Mg Tablet PO QID PRN anxiety Levofloxacin 750 mg 06/16/25 09:00 06/19/25 09:59 Levofloxacin 750 Mg Tablet PO 750 mg DAILY GIOVANNY Administration Lorazepam 0.5 mg 06/15/25 18:01 06/18/25 21:47 Lorazepam (*Crx) 0.5 Mg Tablet PO 0.5 mg BID PRN Administration anxiety Losartan Potassium 25 mg 06/16/25 09:00 06/19/25 09:59 Losartan Potassium 25 Mg Tablet PO 25 mg DAILY GIOVANNY Administration Metoprolol Succinate 50 mg 06/15/25 21:00 06/18/25 21:47 Metoprolol Succinate Ext Rel 50 Mg Tabcr PO 50 mg HS GIOVANNY Administration Morphine Sulfate 30 mg 06/16/25 09:00 06/19/25 09:59 Morphine Sulfate (*Crx) 30 Mg Tabcr PO 30 mg DAILY GIOVANNY Administration Nitroglycerin 0.4 mg 06/15/25 18:20 Nitroglycerin Sl 0.4 Mg Tablet SUBLINGUAL Q5M PRN chest pain Sulindac 200 Mg 200 mg 06/16/25 17:00 06/19/25 10:00 Tablet Home Med PO 07/16/25 16:59 200 mg BID GIOVANNY Administration Rifabutin 150 Mg 300 mg 06/18/25 09:00 06/19/25 10:00 Capsule Home Med PO 07/18/25 08:59 300 mg DAILY GIOVANNY Administration Pantoprazole Sodium 40 mg 06/16/25 09:00 06/19/25 09:59 Pantoprazole 40 Mg Tablet PO 40 mg QAM GIOVANNY Administration Prednisone 40 mg 06/16/25 08:00 06/19/25 09:59 Prednisone 20 Mg Tablet PO 40 mg DAILY@0800 GIOVANNY Administration Sertraline HCl 50 mg 06/16/25 09:00 06/19/25 09:59 Sertraline Hcl 50 Mg Tablet PO 50 mg DAILY GIOVANNY Administration Sodium Chloride 5 ml 06/18/25 20:00 06/19/25 14:10 Sodium Chlor 3% 15 Ml Neb (Respiratory Therapy) INHALATION 5 ml TIDRT GIOVANNY Administration Tamsulosin HCl 0.4 mg 06/16/25 09:00 06/19/25 09:58 Tamsulosin Hcl 0.4 Mg Capsule PO 0.4 mg DAILY GIOVANNY Administration Tobramycin/Dexamethasone 1 drop 06/15/25 21:00 06/19/25 13:11 Tobramycin/Dexamethasone Op 2.5 Ml Btl EACH EYE 1 drop QID GIOVANNY Administration Trazodone HCl 100 mg 06/15/25 21:00 06/18/25 21:47 Trazodone Hcl 50 Mg Tablet PO 100 mg HS GIOVANNY Administration Radiology Results: ITS Impressions Chest X-Ray 06/15/25 13:32 IMPRESSION: Worsening bibasilar airspace disease, right greater than left. This may be the result of pulmonary edema versus pneumonia in appropriate clinical settings. Clinical correlation is recommended. Short-term follow-up chest radiograph is recommended after appropriate clinical therapy to document resolution. Labs Labs: Laboratory Results - last 24 hr 06/19/25 11:15 Urine Color Yellow Urine Appearance Clear Urine pH 7.5 Ur Specific [place] 1.011 Urine Protein Negative Urine Glucose (UA) Negative Urine Ketones Negative Ur Blood (Man) Negative Urine Nitrate Negative Urine Bilirubin Negative Urine Urobilinogen 0.2 Ur Leukocyte Esterase Negative Quality VTE Prophylaxis VTE prophylaxis: mechanical ordered and pharmacologic ordered
--- NOTE | 2025-06-19 14:37 | P.PNIM_ITS ---
Progress Note: A&P Assessment and Plan (1) SNEHA (mycobacterium avium-intracellulare): Code(s): A31.0 - Pulmonary mycobacterial infection Status: Acute Assessment and Plan: Continue home antibiotic: ethambutol hcl, rifabutin, acyclovir, Completed levaquin [facility] Vigil evaluated and canceled transfer to [facility] care (2) Combined systolic and diastolic congestive heart failure: Qualifiers: Heart failure chronicity: acute on chronic Qualified Code(s): I50.43 - Acute on chronic combined systolic (congestive) and diastolic (congestive) heart failure Code(s): I50.40 - Unspecified combined systolic (congestive) and diastolic (congestive) heart failure Status: Acute Assessment and Plan: Acute on chronic 40 of IV Lasix daily Daily weight (3) Chronic pulmonary aspergillosis: Code(s): B44.1 - Other pulmonary aspergillosis Status: Acute Assessment and Plan: See plan above (4) Chronic hypoxic respiratory failure, on home oxygen therapy: Code(s): J96.11 - Chronic respiratory failure with hypoxia; Z99.81 - Dependence on supplemental oxygen Status: Acute Assessment and Plan: Acute on chronic, on 4 L O2 at home found to be 70% on pulse ox by EMS See plan above Solu-Medrol x1 Prednisone (5) HTN (hypertension): Qualifiers: Hypertension type: primary hypertension Qualified Code(s): I10 - Essential (primary) hypertension Code(s): I10 - Essential (primary) hypertension Status: Chronic Assessment and Plan: Continue losartan (6) Hyperlipidemia: Qualifiers: Hyperlipidemia type: mixed hyperlipidemia Qualified Code(s): E78.2 - Mixed hyperlipidemia Code(s): E78.5 - Hyperlipidemia, unspecified Status: Acute Assessment and Plan: Continue home medication (7) Chronic anemia: Code(s): D64.9 - Anemia, unspecified Status: Acute Assessment and Plan: At baseline No signs of acute bleeding CBC in a.m. (8) NSTEMI (non-ST elevated myocardial infarction): Onset Date: 08/2019 Code(s): I21.4 - Non-ST elevation (NSTEMI) myocardial infarction Status: Acute Assessment and Plan: 08/2019 Continue nitro, metoprolol, losartan, and aspirin Plan Awaiting placement to Rehab DVT prophylaxis on Sq Lovenox Subjective Date/time seen: 06/19/25 14:37 Interval history: Comfortable at bedside Awaiting placement Review of Systems Review of Systems: 12 systems were reviewed and are negativ e except for as per HPI. Exam Narrative: General: well appearing, appears stated age. HEENT: normocephalic, atraumatic. Mucous membranes moist. EOMI, PERRLA, bilateral sclera anicteric, no conjunctival injection. Neck supple without JVD, lymphadenopathy, or bruit. Respiratory: Core to ascultation bilaterally. Cardiovascular: Regular rate and rhythm, normal S1-S2 upon ascultation. No murmurs, rubs, or clicks. PMI is nondisplaced, capillary refill less than 3 second. Abdomen: Soft, round, no pulsatile masses, nondistended and nontender. No rebound, no guarding. No CVA tenderness, no hepatosplenomegaly. Bowel sounds present to all four quadrants. No high pitch or tinkling sounds, resonant to percussion. Extremities: No cyanosis, clubbing, or edema present. Pulses are palpable 2/2. Active ROM to all four extremities. Neuro: Alert and orientated x 4. PERRLA. Cranial nerves 2-12 intact without focal deficit. Skin: Warm, dry, and intact, without rash, erythema, or lesion. Psych: pleasant, cooperative, normal speech, normal affect, no hallucinations, no dysarthia Objective Data Vital Signs Vital Signs: Vital Signs - 24 hr 06/18/25 16:00 06/18/25 20:00 06/18/25 20:05 Temperature 98.2 F Pulse Rate 72 77 78 Respiratory Rate 18 18 18 Blood Pressure 99/58 L Pulse Oximetry 96 96 Oxygen Delivery Nasal Cannula Oxygen Flow Rate 4 Fraction of Inspired Oxygen 36 06/18/25 20:05 06/18/25 20:20 06/18/25 21:47 Temperature Pulse Rate 75 77 Respiratory Rate 18 Blood Pressure Pulse Oximetry 96 Oxygen Delivery Nasal Cannula Oxygen Flow Rate 4 Fraction of Inspired Oxygen 06/18/25 22:00 06/19/25 01:42 06/19/25 01:53 Temperature 96.9 F L Pulse Rate 77 77 76 Respiratory Rate 18 18 18 Blood Pressure 129/71 Pulse Oximetry 98 Oxygen Delivery Oxygen Flow Rate Fraction of Inspired Oxygen 06/19/25 05:58 06/19/25 08:07 06/19/25 08:07 Temperature 97.1 F L Pulse Rate 75 95 Respiratory Rate 16 22 H Blood Pressure 138/62 Pulse Oximetry 97 93 Oxygen Delivery Nasal Cannula Oxygen Flow Rate 4 Fraction of Inspired Oxygen 06/19/25 08:24 06/19/25 10:00 06/19/25 14:00 Temperature 97.9 F Pulse Rate 88 88 Respiratory Rate 22 H 18 Blood Pressure 104/50 L Pulse Oximetry 93 96 Oxygen Delivery Nasal Cannula Oxygen Flow Rate 4 Fraction of Inspired Oxygen 06/19/25 14:13 Temperature Pulse Rate 91 Respiratory Rate 20 Blood Pressure Pulse Oximetry Oxygen Delivery Oxygen Flow Rate Fraction of Inspired Oxygen Intake/Output Intake/Output: Intake & Output 06/16/25 06/17/25 06/18/25 06/19/25 23:59 23:59 23:59 23:59 Intake Total 2237 1480 2210 680 Output Total 2600 3350 1110 [id number] -[id number] 680 Meds/Results Medications: Active Medications Generic Name Dose Route Start Last Admin Trade Name Freq PRN Reason Stop Dose Admin Acetaminophen 650 mg 06/15/25 18:22 Acetaminophen 325 Mg Tablet PO Q4H PRN Mild Pain (1-3) or Fever Acetylcysteine 400 mg 06/17/25 20:00 06/19/25 14:10 Acetylcysteine 20% Inhal Soln 800 Mg/4 Ml Vial INHALATION 400 mg TIDRT GIOVANNY Administration Acyclovir 400 mg 06/16/25 21:00 06/19/25 13:11 Acyclovir 400 Mg Tablet PO 400 mg TID GIOVANNY Administration Albuterol/Ipratropium 3 ml 06/15/25 20:00 06/19/25 14:09 Ipratropium 0.5 Mg/Albuterol Sulfate 2.5 Mg Ampul.Neb 3 Ml INHALATION 3 ml Q6HRT GIOVANNY Administration Aspirin 81 mg 06/16/25 09:00 06/19/25 09:58 Aspirin 81 Mg Enteric Tablet PO 81 mg DAILY GIOVANNY Administration Atorvastatin Calcium 80 mg 06/16/25 09:00 06/19/25 09:58 Atorvastatin 40 Mg Tablet PO 80 mg DAILY GIOVANNY Administration Baclofen 10 mg 06/15/25 18:01 Baclofen 10 Mg Tablet PO Q12H PRN muscle spasm Benzonatate 200 mg 06/16/25 09:00 Benzonatate 100 Mg Capsule PO TID PRN Cough Bupropion HCl 150 mg 06/16/25 21:00 06/19/25 09:59 Bupropion Hcl Sr (12 Hr) 150 Mg Tab PO 150 mg Q12HR GIOVANNY Administration Buspirone HCl 2.5 mg 06/17/25 21:00 06/19/25 09:58 Buspirone Hcl 2.5 Mg Tablet PO 2.5 mg Q12HR GIOVANNY Administration Docusate Sodium 100 mg 06/16/25 09:00 06/19/25 09:59 Docusate Sodium 100 Mg Capsule PO 100 mg BID GIOVANNY Administration Enoxaparin Sodium 40 mg 06/16/25 09:00 06/19/25 10:00 Enoxaparin 40 Mg/0.4 Ml Syringe SUB-Q 40 mg DAILY GIOVANNY Administration Ethambutol HCl 1,200 mg 06/16/25 09:00 06/19/25 09:59 Ethambutol Hcl 400 Mg Tablet PO 1,200 mg DAILY GIOVANNY Administration Fenofibrate 145 mg 06/16/25 09:00 06/19/25 09:59 Fenofibrate Nanocrystallized 145 Mg Tablet PO 145 mg QAM GIOVANNY Administration Fluticasone/Umeclidinium/Vilanterol 1 puff 06/16/25 08:00 06/19/25 08:06 Fluticasone/Umeclidin/Vilanter 100-62.5-25 Mcg Ellipta INHALATION 1 puff DAILYRT GIOVANNY Administration Furosemide 20 mg 06/16/25 09:00 06/19/25 09:58 Furosemide Inj 40 Mg/4 Ml Vial IV PUSH 20 mg DAILY GIOVANNY Administration Hydroxyzine HCl 25 mg 06/17/25 19:54 Hydroxyzine Hcl 25 Mg Tablet PO QID PRN anxiety Lorazepam 0.5 mg 06/15/25 18:01 06/18/25 21:47 Lorazepam (*Crx) 0.5 Mg Tablet PO 0.5 mg BID PRN Administration anxiety Losartan Potassium 25 mg 06/16/25 09:00 06/19/25 09:59 Losartan Potassium 25 Mg Tablet PO 25 mg DAILY GIOVANNY Administration Metoprolol Succinate 50 mg 06/15/25 21:00 06/18/25 21:47 Metoprolol Succinate Ext Rel 50 Mg Tabcr PO 50 mg HS GIOVANNY Administration Morphine Sulfate 30 mg 06/16/25 09:00 06/19/25 09:59 Morphine Sulfate (*Crx) 30 Mg Tabcr PO 30 mg DAILY GIOVANNY Administration Nitroglycerin 0.4 mg 06/15/25 18:20 Nitroglycerin Sl 0.4 Mg Tablet SUBLINGUAL Q5M PRN chest pain Sulindac 200 Mg 200 mg 06/16/25 17:00 06/19/25 10:00 Tablet Home Med PO 07/16/25 16:59 200 mg BID GIOVANNY Administration Rifabutin 150 Mg 300 mg 06/18/25 09:00 06/19/25 10:00 Capsule Home Med PO 07/18/25 08:59 300 mg DAILY GIOVANNY Administration Pantoprazole Sodium 40 mg 06/16/25 09:00 06/19/25 09:59 Pantoprazole 40 Mg Tablet PO 40 mg QAM GIOVANNY Administration Prednisone 40 mg 06/16/25 08:00 06/19/25 09:59 Prednisone 20 Mg Tablet PO 40 mg DAILY@0800 GIOVANNY Administration Sertraline HCl 50 mg 06/16/25 09:00 06/19/25 09:59 Sertraline Hcl 50 Mg Tablet PO 50 mg DAILY GIOVANNY Administration Sodium Chloride 5 ml 06/18/25 20:00 06/19/25 14:10 Sodium Chlor 3% 15 Ml Neb (Respiratory Therapy) INHALATION 5 ml TIDRT GIOVANNY Administration Tamsulosin HCl 0.4 mg 06/16/25 09:00 06/19/25 09:58 Tamsulosin Hcl 0.4 Mg Capsule PO 0.4 mg DAILY GIOVANNY Administration Tobramycin/Dexamethasone 1 drop 06/15/25 21:00 06/19/25 13:11 Tobramycin/Dexamethasone Op 2.5 Ml Btl EACH EYE 1 drop QID GIOVANNY Administration Trazodone HCl 100 mg 06/15/25 21:00 06/18/25 21:47 Trazodone Hcl 50 Mg Tablet PO 100 mg HS GIOVANNY Administration Radiology Results: ITS Impressions Chest X-Ray 06/15/25 13:32 IMPRESSION: Worsening bibasilar airspace disease, right greater than left. This may be the result of pulmonary edema versus pneumonia in appropriate clinical settings. Clinical correlation is recommended. Short-term follow-up chest radiograph is recommended after appropriate clinical therapy to document resolution. Labs Labs: Laboratory Results - last 24 hr 06/19/25 11:15 Urine Color Yellow Urine Appearance Clear Urine pH 7.5 Ur Specific [place] 1.011 Urine Protein Negative Urine Glucose (UA) Negative Urine Ketones Negative Ur Blood (Man) Negative Urine Nitrate Negative Urine Bilirubin Negative Urine Urobilinogen 0.2 Ur Leukocyte Esterase Negative Quality VTE Prophylaxis VTE prophylaxis: mechanical ordered and pharmacologic ordered
--- NOTE | 2025-06-19 15:33 | P.PNPL_ITS ---
Progress Note: A&P Assessment and Plan (1) Chronic obstructive pulmonary disease: Code(s): J44.9 - Chronic obstructive pulmonary disease, unspecified Status: Acute Assessment and Plan: Gold grade [address] scan with panlobular emphysema. Testing; 04/28/2025: Home O2 assessment: Final recommendation was 2 L at rest and 5 L with activity. Home management is Breztri (triple therapy-budesonide/glycopyrrolate/formoterol) vs Bevespi (glycopyrrolate-formoterol, NO ICS) hx of Pseudomonas aeruginosa on 10/10/2021 and 04/26/2025; Alcaligenes xylosoxidans sensitive to meropenem and Septra, intermediate to Zosyn, resistant to ceftaz, levofloxacin and imipenem. * alpha 1 anti-trypsin genotype MM, [id number] apical predominant centrilobular and paraseptal emphysema on his CT scan from 10/11/2021 * 12/16/2023 PFT; mild obstruction with FEV1 68%, ratio 61%. No bronchodilator response, hyperinflation, severely decreased DLCO the remains mildly decreased when adjusted for alveolar volume. Compared to 01/01/2022 had been a significant decrease in the FVC, FEV1, total lung capacity, functional residual capacity and diffusing capacity. PMH: COVID pneumonia on 09/10/2021, 11/13/2023 treated with Paxlovid, rebound symptoms treated with clarithromycin and doxycycline. Recurrent pneumonias; 02/25/2024 for pneumonia with sputum showing Haemophilus treated with steroids. 10/04/2024: White blood cell count 11.1 eosinophils 3.2%=355/uL. Eosinophils elevated. (2) SNEHA (mycobacterium avium-intracellulare): Code(s): A31.0 - Pulmonary mycobacterial infection Status: Acute Assessment and Plan: SNEHA in sputum, multiple pulmonary infections requiring antibiotics on many date during 2023 and 2024. He saw Kenisha OSWALD on May 02 while inpatient at [facility], was started on current regimen without azithromycin due to hearing loss; he is on rifabutin 300 mg a day, ethambutol 1200 mg a day. SNEHA always requires 3 medications, so he will need something to replace azithromycin. I will inquire from his ID team what would be the best, clarithromycin or something else. (3) History of tobacco use: Code(s): Z87.891 - Personal history of nicotine dependence Status: Acute Assessment and Plan: History of 60-80 pack years, none since 2019 (4) Hearing loss: Qualifiers: Hearing loss type: unspecified Laterality: unspecified laterality Qualified Code(s): H91.90 - Unspecified hearing loss, unspecified ear Code(s): H91.90 - Unspecified hearing loss, unspecified ear Status: Acute Assessment and Plan: Sudden noticeable loss of hearing particularly in the left ear over the last week. The right ear has been not functioning well for several years but the left ear suddenly has worsen. He is on medicines for SNEHA for the last 6 weeks.Azithromycin may be the most likely cause for decreased hearing. He has been off azithromycin a couple of days, seems to hear better. He will need outpatient audiology testing. Plan plan: 1) Stay off azithromycin;hearing may be a little better. He already had a lot of hearing loss from the right ear. Continue po Levaquin to current regimen. 2) He will need adjustment of his SNEHA treatment plan. This recommendation can come from his ID team at [facility]. 3) Continue BuSpar low dose for anxiety. 4) Sputum for Gram stain C&S shows many Gram negative rods. Normal iron level, 75. Vit D level is 37.7, low normal. Could add supplementation. UA was clean. 5) He may not qualify for in patient rehab, and if he does not, he needs to have a plan for home health, a fixed schedule, pulmonary hygiene 3-4 times per day, deep breathing,use his PAP valve 10 exhales t.i.d with 3% saline 2 ml, Mucomyst 20% t.i.d, albuterol neb t.i.d and vibratory vest t.i.d. Continue valve to be used after vest therapy; encourage coughing and expectoration. He has none of this going on at home right now. 6) He needs nebulized bronchodilator for his machine at home, he does not have any albuterol currently however he does have a nebulizer. 7) He is a candidate for a vibratory vest at home with bronchiectasis on his CT scan. Respiratory therapy may be able to help us with this on Thursday. I placed a request for RT to help notify his DME for this. 8) I clarified his home pulmonary regimen; he tells me that he is on Bevespi, no inhaled steroid due to MAC. Home med list does say he is on Breztri which is not correct. He needs to go home on Bevespi. Subjective Date/time seen: 06/19/25 15:33 Interval history: 06/17/2025; new consult; Russell Morse is an 80-year-old man with SNEHA infection, COPD, returns to the ER with shortness of breath and hypoxia. He was recently admitted on 05/30/2025 for same conditions, was transferred to [facility] from 06/04 to 06/08, went home on Levaquin to complete 750 mg po on June 18. He was also on SNEHA treatment including azithromycin 500 mg/day, Rifabutin 300 mg/day, ethambutol 1200 mg/ day. Tod said that the patient went home but was very weak, could not even walk to the bathroom easily. He and his have been taking off work to care for him at home because he now cannot do almost any self care. He cannot get to the bathroom by himself. With walking to the bathroom on his usual 4 L his saturation is dropping to 79-82%. He can not get to the kitchen by himself. He was supposed to start outpatient therapy this week but was readmitted quickly so this did not happen. Marco tells me that his father had a recent significant loss of hearing in the left ear. He has had hearing loss in the right ear for years. His CXR June 15 is worse compared to his May 30 CXR. He has increased infiltrate and consolidation in the right base. 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 Family hx: Brothers had COPD 8 years ago; pt, lives with son Marco and his , is alone in the day; sometimes daughter Sadia comes over, 17 hours a week, O2: has been on 2-3 years, wanted to be on it, was sneaking it from his who had severe lung disease. June 19, 2025; follow up; Hearing better since the azithromycin was stopped. He is using the vibratory vest and Cornet valve. I increased the resistance on the Cornet to 3rd level. He says that he has one like it at home, does not use it. He is coughing small amounts of sputum. On nasal cannula 4 L, saturation is 93%. This is acceptable oxygenation. He has required O2 at 4 L during a 2020 admission. I spoke with his son about the PT/OT note. The patient was evaluated and probably is not going to meet criteria to get into rehab at discharge. It is possible that when the patient is supported in the hospital, he puts forth a lot of effort, has ability to walk distances and perform tasks that he will not do at home. His daughter is a paid caregiver for him, and he might not want the challenge of exercising at home. I told his son that the more you move, the farther away from the grave you stay and his dad has to want to do these activities for himself, including pulmonary hygiene, nebulized treatments, mucolytics, exercise, and keeping a schedule. He needs a routine. Gram stain today showed few epithelial cells, many Gram negative rods. 2024 admissions: * 05/30/2025 [facility] admission shortness of breath; transferred to [facility] 06/04 to 06/07; discharged on Levaquin to continue until June 18; continue SNEHA meds * 05/12/2025, ER visit, shortness of breath, home. * 04/25/25 -04/28/25; admitted [facility] respiratory distress, hypoxemia, transferred to [facility]; ID saw him 05/02/25; SNEHA; started Rx w azithromycin 500 mg/D, Rifabutin 300 mg/D, ethambutol 1200 mg/ day initial sputum with SENHA was 12/16/2024 with AFB verified on 01/20/25 and grew SNEHA on 02/01/25.?Sensitivities 03/28/25. QuantiFERON gold was negative on 01/24/25. ORGANISM: MYCOBACTERIUM AVIUM COMPLEX AMIKACIN: 16 S mcg/mL AMIKACIN (LIPOSOMAL, INHALED): 16 S mcg/mL CIPROFLOXACIN: >8 mcg/mL CLARITHROMYCIN: 2 S mcg/mL CLOFAZIMINE: 0.25 mcg/mL DOXYCYCLINE: >8 mcg/mL LINEZOLID: 16 I mcg/mL MINOCYCLINE: >8 mcg/mL MOXIFLOXACIN: 4 R mcg/mL RIFABUTIN: 1 mcg/mL RIFAMPIN: >4 mcg/mL STREPTOMYCIN: >32 * This is a corrected result. * A prior result that was reported as final has been changed. 1. Mycobacterium avium complex M.I.C. RX --------- --- Rifampin AFB >4 S Streptomycin AFB R Amikacin AFB 16 S Moxifloxacin AFB R 03/02/2025 patient with increased phlegm production and treated for bronchitis with Septra DS 2 tablets twice a day x 7 days. PMH: CHF with reduced ejection fraction, CKD stage 3, COPD, NSTEMI, polio as a child; recent SNEHA pneumonia DATA * 06/15/2025; CXR; IMPRESSION: Worsening bibasilar airspace disease, right greater than left. This may be the result of pulmonary edema versus pneumonia in appropriate clinical settings. Clinical correlation is recommended. Short-term follow-up chest radiograph is recommended after appropriate clinical therapy to document resolution. May 30, 2025 ; CXR: Small right pleural effusion present. There is worsening haz y and interstitial disease in the right lung base and right midlung. Possible minimal haziness left lung base. Cardiomediastinal silhouette is stable. Bones and soft tissues are unremarkable. Impression: Probable mild pulmonary edema, worse in the right lung than left, versus possibly pneumonia. Correlate clinically. Small right pleural effusion. May 30, 2025 Below is information from prior admissions 04/26/2025: This is a new pulmonary consult for COPD and MAC. 80-year-old with a history of coronary artery disease status post non ST elevation AR August of 2019, ischemic cardiomyopathy, hypertension, hyperlipidemia, Gold grade 2 group B COPD on home oxygen 7 L at rest, with activity and with sleep and MAC lung disease. Regarding his COPD, patient with 60 pack year tobacco use quit in 2019, alpha 1 anti trypsin genotype MM, [id number] apical predominant centrilobular and paraseptal emphysema on his CT scan from 10/11/2021. Of note he has had COVID pneumonia on 09/10/2021 and Pseudomonas aeruginosa on 10/10/2021, and 04/26/2025. His PFTs from 12/16/2023 show mild obstruction with FEV1 68%, ratio 61%. No bronchodilator response, hyperinflation, severely decreased DLCO the remains mildly decreased when adjusted for alveolar volume. Compared to 01/01/2022 had been a significant decrease in the FVC, FEV1, total lung capacity, functional residual capacity and diffusing capacity. When admitted for pneumonia had an ABG on 02/25/2024 on 3 L nasal cannula 7.44/36/67. 10/04/2024: ABG on 2 L 7.43/41/75. 10/04/2024: White blood cell count 11.1 eosinophils 3.2%=355/uL. 04/09/2024 white blood cell count 11.1, eosinophils 0.4%=44/uL. Tested positive for COVID 11/13/2023 treated with Paxlovid, rebound symptoms treated with clarithromycin and doxycycline. Hospitalize 02/25/2024 for pneumonia with sputum showing Haemophilus treated with steroids. Hospitalized 04/10/24 to 04/12/24 for COPD exacerbation treated with prednisone and azithromycin. 09/08/2024 cold symptoms, treated with doxycycline and prednisone taper. 10/04/2024 ED visit for shortness of breath treated for fluid overload and COPD exacerbation with prednisone and Augmentin. 11/04 admitted to [facility] with congestive heart failure and pneumonia no evidence of COPD exacerbation. 11/20 admitted to [facility] for shortness of breath, fluid overload and possible pneumonia. 12/02/2024 through 12/06/2024 admitted to [facility] treated for pneumonia. sputum from 12/17/2024 grew out Alcaligenes xylosoxidans sensitive to meropenem and Septra, intermediate to Zosyn, resistant to ceftaz, levofloxacin and imipenem. 03/02/2025 patient with increased phlegm production and treated for bronchitis with Septra DS 2 tablets twice a day x 7 days. 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 Sputum on 12/15/2024 with AFB verified on 01/14/25 and grew SNEHA on 03/03/25. Sensitivities 03/20/25. On 03/20/25 patient referred to [facility] with appointment scheduled for 05/02/2025. Sputum on 12/16/2024 with AFB verified on 01/20/25 and grew SNEHA on 02/01/25. Sensitivities 03/28/25. QuantiFERON gold was negative on 01/24/25. Patient was treated for bronchitis on 03/02/2025 and improved with Septra. He was at his baseline which is dyspnea on exertion at 50-75 feet. He is using 7 L at rest, with saturations 95-97% at home. He is using 7 L with activity with saturations 92%. He is using 7 L at night. He typically has no daily fevers. He coughs phlegm 2 times a day which is described as lynn. Patient tells me he was at his baseline on 04/24/2020 5. On 04/25/2025 he developed a fever, increased cough, worsening dyspnea on exertion with the same amount of phlegm. Family reported some confusion. He was brought to the emergency department. 04/25/25 through 04/28/2025: admitted to [facility] for respiratory distress and hypoxemia. I spoke with the emergency room physician and requested that he be transferred to [facility] said he could be evaluated by an Infectious Disease team which we do not have at [facility]. Patient was referred to [facility] but no beds were available. In the meantime I recommended ceftriaxone, azithromycin and Septra. 04/26/25: a CT angiogram of the chest: I have compared this to CT scans from 11/20/2024 and 08/29/2024 and 02/25/2024. Current CT shows no PE, worsening consolidation and infiltrates in the right lower lobe compared to 11/20/2024 and 02/25/2024. Compared to CT scan on 02/25/2024 currently there are some areas of improved consolidation in the right lower lobe and some different areas with worsening consolidations in the right lower lobe. There is unchanged consolidation in the posterior left lower lobe with no change compared to 11/20/2024, 08/29/2024 and that have improved from 02/25/2024. Currently there are patchy consolidations in the right middle lobe some which were present on 11/20/2024 and some that are new. There were no infiltrates on 08/29/2024 in the right middle lobe. Modified barium swallow normal. Sputum has grown out normal [place]. 04/28/2025: Home O2 assessment: Final recommendation was 2 L at rest and 5 L with activity. discharged on cefdinir x3 days, azithromycin x2 days, Septra 2 tablets p.o. b.i.d. x3 days, but of SP, guaifenesin 1200 b.i.d., Lasix 20 p.o. q.day, 4 L at night. After discharge respiratory pathogen panel was positive for human metapneumovirus. He was to be evaluated with [facility] on 05/02/2025. sputum for AFB collected on 04/27/2025 and 04/28/2025. 05/02/2025: Patient was seen at [facility] infectious Disease [facility]. We have contacted the clinic multiple times to get the note and have been unsuccessful. The patient tells me he has no idea what they said or recommended other than to follow-up in July. 05/12/2025: Seen in the emergency department for progressively worse shortness of breath, sputum production, BNP 3300, COVID, influenza, RSV RT PCR negative. ABG 7. on 2 L nasal cannula. prescribed Septra 1 tablet p.o. q.12 hours x7 days 05/22/2025: Patient called his PCP coughing all day with a little bit of phlegm raspy throat. levofloxacin 750 q.day prescribed X 10 days. 05/29/25: I spoke to the patient and usually is on 2 L at rest and 5 with activity. I spoke to the patient today and he is on 4-5 L at rest with saturations 87%. His saturations with 5 L activity are in the mid 80s. He says he has not gained weight and is not swollen. He has finished 10 days of antibiotics through his PCP. I recommended the patient be evaluated in the emergency department and I recommended that he go to [facility] emergency department so that he could be evaluated by their Pulmonary team and their Infectious Disease team. He voiced understanding. 05/30/2025: Patient presented to [facility] ED with complaints of shortness of breath, exertional hypoxemia. He finished his outpatient Levaquin today. blood pressure 112/47, heart rate 79, saturation 96% on 4 L nasal cannula. Afebrile, creatinine 1.13. White blood cell count 11.8. I spoke to the emergency room and recommended he be transferred to [facility] to be evaluated by the Infectious Disease team and pulmonary team. Patient was accepted but no beds available. MRSA swab negative. Started on ceftriaxone, azithromycin and Septra. Patient given Lasix 40 IV x1. 05/31/2025: Currently the patient tells me he is breathing at his baseline at rest. He has worsening dyspnea on exertion. His cough and phlegm production or better than yesterday. He denies fever, chills, rigors, sweats. He has no hemoptysis. He has no worsening orthopnea, he has stable nocturia every 2 hours at home. When I enter the room he was on 5 L nasal cannula saturations 99%. I decreased him to 4 L nasal cannula saturations were 94%. I decreased him to 2 L nasal cannula saturations were 92%. DATA 04/26/2025: EXAMINATION: CTA chest PE protocol DATE: 04/26/2025 13:46 CDT INDICATION: Shortness of breath TECHNIQUE: Computed tomographic angiography (CTA) of the chest was performed with 100 mL Omnipaque-350 intravenous contrast. The dose-length product was 256.22 mGy-cm. Maximum intensity projection 3D-reconstructions of the aorta and other arteries were constructed by the technologist on a separate workstation. Automated exposure control and iterative reconstruction technique were employed. COMPARISON: Chest x-ray dated 04/25/[address] dated 11/20/2024. FINDINGS: Small right pleural effusion. Trace left pleural effusion. There is mediastinal lymphadenopathy. There is right hilar lymphadenopathy. There is atherosclerosis of the aorta and coronary arteries. Small hiatal hernia. Heart size normal. Pulmonary arteries are enlarged, consistent with pulmonary hypertension. Study is technically adequate without evidence for pulmonary embolism. There is patchy bilateral airspace disease of the right upper, right middle and bilateral lower lobes, consistent with multifocal pneumonia. No endobronchial lesions. There is emphysema. No suspicious pulmonary nodules or masses. Mild thoracic spondylosis. No focal lytic or blastic lesions. IMPRESSION: 1. Multifocal airspace disease, consistent with pneumonia. 2: Bilateral pleural effusions, right greater than left. 3: Mediastinal lymphadenopathy, likely reactive. 4.: Pulmonary artery enlargement, consistent with pulmonary hypertension. 5: Emphysema. My read: I have compared this to CT scans from 11/20/2024 and 08/29/2024 and 02/25/2024. Current CT shows no PE, , Small right pleural effusion, worsening consolidation and infiltrates in the right lower lobe compared to 11/20/2024 and 02/25/2024. Compared to CT scan on 02/25/2024 currently there are some areas of improved consolidation in the right lower lobe and some different areas with worsening consolidations in the right lower lobe. There is unchanged consolidation in the posterior left lower lobe with no change compared to 11/20/2024, 08/29/2024 and that have improved from 02/25/2024. Currently there are patchy consolidations in the right middle lobe some which were present on 11/20/2024 and some that are new. There were no infiltrates on 08/29/2024 in the right middle lobe. 01/02/25: Modified barium swallow: Impression: Moderate dysphagia 11/20/24: EXAMINATION:. Recommendations: Regular but easy to chew diet with regular liquids but patient must use chin tuck posture with all eating and drinking to prevent pharyngeal residual and instances of laryngeal penetration and aspiration. He was referral to outpatient speech therapy. 12/14/24: CRP 3.6, ESR 134, CPK 43, Aspergillus Niger IgE 0.31, very low level. Aspergillus Niger antibody negative, Aspergillus flatus antibody negative. Aspergillus fumigatus antibody negative. Rheumatoid factor 12.9, anti CCP antibody less than 16. TERRA screen positive with an anti-DNA antibody 27 (positive greater than 10), Anca screen negative, hypersensitivity pneumonitis panel negative. 01/24/2025: QuantiFERON gold negative. IgE 691 normal less than 114, rheumatoid factor 12.9. IgG 693, IgM 90, IgA 212, all normal. Aldolase 5.0 CTA chest PE protocol INDICATION: Hypoxia elevated d-dimer COMPARISON: 08/29/2024 and 10/11/2021. FINDINGS: No filling defects within the main or proximal pulmonary arteries. The thoracic aorta is unremarkable. No aneurysmal dilatation or dissection. The heart is of normal size, without pericardial effusion. Panlobular emphysematous disease is identified. Patchy groundglass opacification detected bilaterally. Small bilateral pleural effusions with adjacent compressive atelectasis Multiple subcentimeter areas of decreased attenuation within the liver, unchanged dating back to 10/11/2021. IMPRESSION: No pulmonary embolus. No aneurysmal dilatation or dissection within the thoracic aorta. Small bilateral pleural effusions with adjacent compressive atelectasis. 08/16/2024: Overnight oximetry on 3 L nasal cannula. The report in the computer status overnight oximetry on room air but this is mislabeled as the test was performed on 3 L. Recording duration 8 hours and 39 minutes. Basal saturation 92.1%. High saturation 96%. Low saturation 79%. Time with saturation less than or equal to 88% was 4 minutes and 58 seconds. I will continue oxygen 3 L at night. 06/24/2024: This is a 6 minute walk test. The test was performed and interpreted in accordance with the 2014 ERS/ATS task force guidelines. Of note, patient used to wheeled walker for stability and the testing was performed on his home portable oxygen concentrator at 3 L with pulse dose. Findings: The patient's resting 3 L oxygen saturation measured by pulse oximetry was 95% and heart rate was 80 bpm. Patient ambulated for 137 meters and oxygen saturation remained 91 to 92%. Heart rate at the end of the study was 94 bpm. The patient did not have rest or exertional hypoxemia on 3 L nasal cannula pulse dose with his portable oxygen concentrator. 02/25/24 - CTA chest (ER) - No PE identified. 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 There is patchy consolidation in the right middle and bilateral lower lobes with additional regions of tree-in-bud opacity scattered throughout both lungs consistent with multifocal pneumonia. There is associated bronchial wall thickening and mucous plugging in the bilateral lower lobes. Tiny left pleural effusion. No septal line thickening to suggest pulmonary edema. No pneumothorax. Mild cardiomegaly. Atherosclerotic coronary artery calcifications. No pericardial effusion. 02/25/2024: ABG on 4 L cannula 7.39/35/63 01/15/24 - Home O2 eval - Required 2L/min O2 with ambulation and none at rest. 12/16/23 - PFT The test was performed and results interpreted in accordance with the 2019 and 2005 ATS/ERS Task Force guidelines respectively using the Global Lung Function Initiative-2012 reference equations. Patient demonstrated good effort and cooperation. Reproducibility criteria were met. The quality of the pre b ronchodilator spirometry maneuver was Grade A and post bronchodilator spirometry maneuver was Grade A. Findings: Spirometry: There is decreased maximal expiratory airflow at all lung volumes with concave expiratory flow tracing. The contour the inspiratory flow tracing is normal. The pre bronchodilator FVC is 3.33 L, 82% predicted. The pre bronchodilator FEV1 is 2.02 L, 68% predicted. The pre bronchodilator FEV1: FVC ratio 61%. The post bronchodilator FVC is 3.41 L, representing a 2% increase. The post bronchodilator FEV1 is 2.09 L, representing a 3% increase. The post bronchodilator FEV1: FVC ratio 61%. Plethysmography: The total lung capacity is 6.43 L, 89% predicted. The functional residual capacity is 4.14 L, 106% predicted. The residual volume is 3.10 L, 115% predicted. The residual volume: Total lung capacity ratio is 48%. Diffusing capacity: The diffusing capacity unadjusted for hemoglobin and carboxyhemoglobin is 9.0, 37% predicted. The diffusing capacity adjusted for alveolar volume is 2.29, 64% predicted. Comparison to previous pulmonary function testing on 01/01/2022 the post bronchodilator FVC has decreased from 4.38 L to 3.41 L. The post bronchodilator FEV1 has decreased from 3.11 L to 2.09 L. the total lung capacity is decreased from 7.39 L to 6.43 L. The functional residual capacity has decreased from 4.95 L to 4.14 L. The residual volume is unchanged from 2.93 L to 3.10 L. The diffusing capacity unadjusted for hemoglobin and carboxyhemoglobin is decreased from 14.9 to 9.0. The diffusing capacity adjusted for alveolar volume decreased from 2.63 to 2.29 Impression: There is a mild obstructive abnormality. There is no significant improvement after inhaling a single dose of albuterol. The increase in residual volume to total lung volume ratio is consistent with hyperinflation from an obstructive abnormality. The diffusing capacity unadjusted for hemoglobin and carboxyhemoglobin is severely decreased and remains mildly decreased when adjusted for alveolar volume. Compared to prior pulmonary function testing on 01/01/2022 there has been a significant decrease in the FVC, FEV1, total lung capacity, functional residual capacity and diffusing capacity with no significant change in the residual volume. 09/16/23 - Home O2 eval - Required 2L/min O2 with ambulation and none at rest. 01/01/22 - Home O2 eval - Patient did not require supplemental oxygen at rest or with exertion. 01/01/22 - PFTs - Mild obstructive abnormality with normal FEV1 without significant improvement after inhaling a single dose of albuterol. Lung volumes normal. The diffusing capacity unadjusted for hemoglobin is moderately decreased and normalizes when adjusted for alveolar volume. 12/18/21 - Overnight oximetry on room air - Time with saturation less than or equal to 88% was 4.0 minutes. Patient does not qualify for supplemental oxygen at night. 10/10/2021 - ABG on 4L NC - 7.44/43/70. 10/20/21 - Chest XR - Persistent patchy bilateral airspace disease with possible improvement in the left lung, compatible with pneumonia. 10/11/2021 - CTA chest - Extensive bilateral pulmonary infiltrates and likely re active hilar or mediastinal adenopathy. Small right pleural effusion. No evidence of pulmonary embolism. 10/11/2021 - Echo - LV systolic function mildly reduced, EF 45-50%. Grade I diastolic dysfunction. The inferior wall, inferoseptal wall, basal inferolateral wall, and mid inferolateral wall are hypokinetic. Mild LA enlargement. No pulmonary hypertension. Review of Systems Review of Systems: He is eating, able to tolerate PT/OT. All systems reviewed & are unremarkable except as noted in HPI and below Exam Narrative: GEN: Alert, oriented, not in distress. His hearing appears better, Nasal can nula O2 4 L/min -> sat 94%. He has Breathe Right nasal strips on the bridge of his nose due to right nostril collapsing easily. This has been a problem for years. 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 He is pleasant, weak, deconditioned. Objective Data Vital Signs Vital Signs: Vital Signs - 24 hr 06/18/25 16:00 06/18/25 20:00 06/18/25 20:05 Temperature 36.8 C Pulse Rate 72 77 78 Respiratory Rate 18 18 18 Blood Pressure 99/58 L Pulse Oximetry 96 96 Oxygen Delivery Nasal Cannula Oxygen Flow Rate 4 Fraction of Inspired Oxygen 36 06/18/25 20:05 06/18/25 20:20 06/18/25 21:47 Temperature Pulse Rate 75 77 Respiratory Rate 18 Blood Pressure Pulse Oximetry 96 Oxygen Delivery Nasal Cannula Oxygen Flow Rate 4 Fraction of Inspired Oxygen 06/18/25 22:00 06/19/25 01:42 06/19/25 01:53 Temperature 36.1 C L Pulse Rate 77 77 76 Respiratory Rate 18 18 18 Blood Pressure 129/71 Pulse Oximetry 98 Oxygen Delivery Oxygen Flow Rate Fraction of Inspired Oxygen 06/19/25 05:58 06/19/25 08:07 06/19/25 08:07 Temperature 36.2 C L Pulse Rate 75 95 Respiratory Rate 16 22 H Blood Pressure 138/62 Pulse Oximetry 97 93 Oxygen Delivery Nasal Cannula Oxygen Flow Rate 4 Fraction of Inspired Oxygen 06/19/25 08:24 06/19/25 10:00 06/19/25 14:00 Temperature 36.6 C Pulse Rate 88 88 Respiratory Rate 22 H 18 Blood Pressure 104/50 L Pulse Oximetry 93 96 Oxygen Delivery Nasal Cannula Oxygen Flow Rate 4 Fraction of Inspired Oxygen 06/19/25 14:13 Temperature Pulse Rate 91 Respiratory Rate 20 Blood Pressure Pulse Oximetry Oxygen Delivery Oxygen Flow Rate Fraction of Inspired Oxygen Intake/Output Intake/Output: Intake & Output 06/16/25 06/17/25 06/18/25 06/19/25 23:59 23:59 23:59 23:59 Intake Total 3395 1480 2210 680 Output Total 5945 3350 1110 Balance -363 -1870 1100 680 Meds/Results Medications: Active Medications Generic Name Dose Route Start Last Admin Trade Name Freq PRN Reason Stop Dose Admin Acetaminophen 650 mg 06/15/25 18:22 Acetaminophen 325 Mg Tablet PO Q4H PRN Mild Pain (1-3) or Fever Acetylcysteine 400 mg 06/17/25 20:00 06/19/25 14:10 Acetylcysteine 20% Inhal Soln 800 Mg/4 Ml Vial INHALATION 400 mg TIDRT GIOVANNY Administration Acyclovir 400 mg 06/16/25 21:00 06/19/25 13:11 Acyclovir 400 Mg Tablet PO 400 mg TID GIOVANNY Administration Albuterol/Ipratropium 3 ml 06/15/25 20:00 06/19/25 14:09 Ipratropium 0.5 Mg/Albuterol Sulfate 2.5 Mg Ampul.Neb 3 Ml INHALATION 3 ml Q6HRT GIOVANNY Administration Aspirin 81 mg 06/16/25 09:00 06/19/25 09:58 Aspirin 81 Mg Enteric Tablet PO 81 mg DAILY GIOVANNY Administration Atorvastatin Calcium 80 mg 06/16/25 09:00 06/19/25 09:58 Atorvastatin 40 Mg Tablet PO 80 mg DAILY GIOVANNY Administration Baclofen 10 mg 06/15/25 18:01 Baclofen 10 Mg Tablet PO Q12H PRN muscle spasm Benzonatate 200 mg 06/16/25 09:00 Benzonatate 100 Mg Capsule PO TID PRN Cough Bupropion HCl 150 mg 06/16/25 21:00 06/19/25 09:59 Bupropion Hcl Sr (12 Hr) 150 Mg Tab PO 150 mg Q12HR GIOVANNY Administration Buspirone HCl 2.5 mg 06/17/25 21:00 06/19/25 09:58 Buspirone Hcl 2.5 Mg Tablet PO 2.5 mg Q12HR GIOVANNY Administration Docusate Sodium 100 mg 06/16/25 09:00 06/19/25 09:59 Docusate Sodium 100 Mg Capsule PO 100 mg BID GIOVANNY Administration Enoxaparin Sodium 40 mg 06/16/25 09:00 06/19/25 10:00 Enoxaparin 40 Mg/0.4 Ml Syringe SUB-Q 40 mg DAILY GIOVANNY Administration Ethambutol HCl 1,200 mg 06/16/25 09:00 06/19/25 09:59 Ethambutol Hcl 400 Mg Tablet PO 1,200 mg DAILY GIOVANNY Administration Fenofibrate 145 mg 06/16/25 09:00 06/19/25 09:59 Fenofibrate Nanocrystallized 145 Mg Tablet PO 145 mg QAM GIOVANNY Administration Fluticasone/Umeclidinium/Vilanterol 1 puff 06/16/25 08:00 06/19/25 08:06 Fluticasone/Umeclidin/Vilanter 100-62.5-25 Mcg Ellipta INHALATION 1 puff DAILYRT GIOVANNY Administration Furosemide 20 mg 06/16/25 09:00 06/19/25 09:58 Furosemide Inj 40 Mg/4 Ml Vial IV PUSH 20 mg DAILY GIOVANNY Administration Hydroxyzine HCl 25 mg 06/17/25 19:54 Hydroxyzine Hcl 25 Mg Tablet PO QID PRN anxiety Lorazepam 0.5 mg 06/15/25 18:01 06/18/25 21:47 Lorazepam (*Crx) 0.5 Mg Tablet PO 0.5 mg BID PRN Administration anxiety Losartan Potassium 25 mg 06/16/25 09:00 06/19/25 09:59 Losartan Potassium 25 Mg Tablet PO 25 mg DAILY GIOVANNY Administration Metoprolol Succinate 50 mg 06/15/25 21:00 06/18/25 21:47 Metoprolol Succinate Ext Rel 50 Mg Tabcr PO 50 mg HS GIOVANNY Administration Morphine Sulfate 30 mg 06/16/25 09:00 06/19/25 09:59 Morphine Sulfate (*Crx) 30 Mg Tabcr PO 30 mg DAILY GIOVANNY Administration Nitroglycerin 0.4 mg 06/15/25 18:20 Nitroglycerin Sl 0.4 Mg Tablet SUBLINGUAL Q5M PRN chest pain Sulindac 200 Mg 200 mg 06/16/25 17:00 06/19/25 10:00 Tablet Home Med PO 07/16/25 16:59 200 mg BID GIOVANNY Administration Rifabutin 150 Mg 300 mg 06/18/25 09:00 06/19/25 10:00 Capsule Home Med PO 07/18/25 08:59 300 mg DAILY GIOVANNY Administration Pantoprazole Sodium 40 mg 06/16/25 09:00 06/19/25 09:59 Pantoprazole 40 Mg Tablet PO 40 mg QAM GIOVANNY Administration Prednisone 40 mg 06/16/25 08:00 06/19/25 09:59 Prednisone 20 Mg Tablet PO 40 mg DAILY@0800 GIOVANNY Administration Sertraline HCl 50 mg 06/16/25 09:00 06/19/25 09:59 Sertraline Hcl 50 Mg Tablet PO 50 mg DAILY GIOVANNY Administration Sodium Chloride 5 ml 06/18/25 20:00 06/19/25 14:10 Sodium Chlor 3% 15 Ml Neb (Respiratory Therapy) INHALATION 5 ml TIDRT GIOVANNY Administration Tamsulosin HCl 0.4 mg 06/16/25 09:00 06/19/25 09:58 Tamsulosin Hcl 0.4 Mg Capsule PO 0.4 mg DAILY GIOVANNY Administration Tobramycin/Dexamethasone 1 drop 06/15/25 21:00 06/19/25 13:11 Tobramycin/Dexamethasone Op 2.5 Ml Btl EACH EYE 1 drop QID GIOVANNY Administration Trazodone HCl 100 mg 06/15/25 21:00 06/18/25 21:47 Trazodone Hcl 50 Mg Tablet PO 100 mg HS GIOVANNY Administration Radiology Results: ITS Impressions Chest X-Ray 06/15/25 13:32 IMPRESSION: Worsening bibasilar airspace disease, right greater than left. This may be the result of pulmonary edema versus pneumonia in appropriate clinical settings. Clinical correlation is recommended. Short-term follow-up chest radiograph is recommended after appropriate clinical therapy to document resolution. Labs Labs: Laboratory Results - last 24 hr 06/19/25 11:15 Urine Color Yellow Urine Appearance Clear Urine pH 7.5 Ur Specific [place] 1.011 Urine Protein Negative Urine Glucose (UA) Negative Urine Ketones Negative Ur Blood (Man) Negative Urine Nitrate Negative Urine Bilirubin Negative Urine Urobilinogen 0.2 Ur Leukocyte Esterase Negative
[2025-06-19] MEDS: LORazepam (*CRX) 0.5 MG TABLET PO (20:40)
[2025-06-19] MEDS: METOPROLOL SUCCINATE EXT REL 50 MG TABCR PO (20:40)
[2025-06-20] VITALS (14 sets, daily range): BP systolic 92–125; BP diastolic 41–57; PULSE 72–100; RESP 16–20; TEMP 35.8–36.3; O2SAT 93–97
[2025-06-20] MEDS: IPRATROPIUM 0.5 MG/ALBUTEROL SULFATE 2.5 MG AMPUL.NEB 3 ML INHALATION ×4 (02:46→21:14)
[2025-06-20 08:21] LABS: Hematocrit 29.2 % (42.0-52.0); Hemoglobin 9.1 g/dL (14.0-18.0); Immature Granulocyte Percent A 0.9 % (0-0.5); Lymphocytes Absolute Auto 0.75 K/mm3 (0.9-3.2); Mean Corpuscular HGB Conc 31.2 g/dl (32-36); Mean Corpuscular Hemoglobin 28.5 pg (26-34); Mean Corpuscular Volume 91.5 fl (80-100); Nucleated Red Blood Cells Absolute Auto 0.000 K/mm3 (0.0-0.012); Nucleated Red Blood Cells Perc 0.0 % (0.0-0.2); Platelet Count Result 170 k/mm3 (150-375); Red Blood Count 3.19 M/mm3 (4.6-6.20); White Blood Count 16.2 K/mm3 (4.5-10.0)
[2025-06-20 08:40] LABS: Alanine Aminotransferase 17 U/L (6-50); Albumin Level 3.3 g/dL (3.5-5.1); Alkaline Phosphatase 93 U/L (38-126); Anion Gap 6 mmol/L (4-12); Aspartate Amino Transferase 28 U/L (17-59); Bilirubin,Total 0.4 mg/dL (0.2-1.3); Blood Urea Nitrogen 27 mg/dL (9-20); Calcium 9.2 mg/dL (8.4-10.2); Carbon Dioxide 31 mmol/L (22-30); Chloride 97 mmol/L (98-107); Estimated CRCL calculation 45 ml/min; Estimated Glomerular Filt Rate 58; Glucose 96 mg/dL (65-110); Magnesium 1.8 mg/dL (1.6-2.3); Potassium 4.5 mmol/L (3.4-5.0); Sodium 134 mmol/L (137-145); Total Protein 6.5 g/dL (6.3-8.2)
[2025-06-20] MEDS: FLUTICASONE/UMECLIDIN/VILANTER 100-62.5-25 MCG ELLIPTA 1 PUFF INHALATION (08:51)
[2025-06-20] MEDS: ACETYLCYSTEINE 20% INHAL SOLN 800 MG/4 ML VIAL 400 MG INHALATION ×3 (08:52→21:14)
[2025-06-20] MEDS: SODIUM CHLOR 3% 15 ML NEB (RESPIRATORY THERAPY) 5 ML INHALATION ×3 (08:52→21:14)
[2025-06-20] MEDS: MORPHINE SULFATE (*CRX) 30 MG TABCR PO (09:34)
[2025-06-20] MEDS: buPROPion HCL SR (12 HR) 150 MG TAB PO ×2 (10:11→20:48)
[2025-06-20] MEDS: LOSARTAN POTASSIUM 25 MG TABLET PO (10:11)
[2025-06-20] MEDS: ASPIRIN 81 MG ENTERIC TABLET PO (10:11)
[2025-06-20] MEDS: DOCUSATE SODIUM 100 MG CAPSULE PO ×2 (10:11→17:55)
[2025-06-20] MEDS: FENOFIBRATE NANOCRYSTALLIZED 145 MG TABLET PO (10:11)
[2025-06-20] MEDS: FUROSEMIDE INJ 40 MG/4 ML VIAL 20 MG IV PUSH (10:12)
[2025-06-20] MEDS: PANTOPRAZOLE 40 MG TABLET PO (10:12)
[2025-06-20] MEDS: ETHAMBUTOL HCL 400 MG TABLET 1200 MG PO (10:12)
[2025-06-20] MEDS: ACYCLOVIR 400 MG TABLET PO ×3 (10:12→17:55)
[2025-06-20] MEDS: ATORVASTATIN 40 MG TABLET 80 MG PO (10:12)
[2025-06-20] MEDS: TAMSULOSIN HCL 0.4 MG CAPSULE PO (10:13)
[2025-06-20] MEDS: SERTRALINE HCL 50 MG TABLET PO (10:13)
[2025-06-20] MEDS: busPIRone HCL 2.5 MG TABLET PO ×2 (10:13→20:48)
[2025-06-20] MEDS: ENOXAPARIN 40 MG/0.4 ML SYRINGE SUB-Q (10:17)
[2025-06-20] MEDS: RIFABUTIN 150 MG 300 EACH PO (10:18)
[2025-06-20] MEDS: SULINDAC 200 MG 200 EACH PO ×2 (10:18→17:55)
[2025-06-20] MEDS: TOBRAMYCIN/DEXAMETHASONE OP 2.5 ML BTL 1 DROP EACH EYE ×4 (10:18→20:47)
--- NOTE | 2025-06-20 13:48 | P.PNIM_ITS ---
Progress Note: A&P Assessment and Plan (1) SNEHA (mycobacterium avium-intracellulare): Code(s): A31.0 - Pulmonary mycobacterial infection Status: Acute Assessment and Plan: Continue home antibiotic: ethambutol hcl, rifabutin, acyclovir, Completed levaquin [facility]: * Continue Ethambutol, acyclovir, and Rifabutin. * To be followed by Infectious Disease at [facility]. * Will need respiratory therapy at discharge. * Continue supplemental oxygen. (2) Combined systolic and diastolic congestive heart failure: Qualifiers: Heart failure chronicity: acute on chronic Qualified Code(s): I50.43 - Acute on chronic combined systolic (congestive) and diastolic (congestive) heart failure Code(s): I50.40 - Unspecified combined systolic (congestive) and diastolic (congestive) heart failure Status: Acute Assessment and Plan: Acute on chronic 40 of IV Lasix daily Daily weight 06/20/25: * Transition to Lasix 40 mg po daily from IV. * Pt appears euvolemic. * Creatinine stable. (3) Chronic pulmonary aspergillosis: Code(s): B44.1 - Other pulmonary aspergillosis Status: Acute Assessment and Plan: See plan above 06/20/25: * See #1 (4) Chronic hypoxic respiratory failure, on home oxygen therapy: Code(s): J96.11 - Chronic respiratory failure with hypoxia; Z99.81 - Dependence on supplemental oxygen Status: Acute Assessment and Plan: Acute on chronic, on 4 L O2 at home found to be 70% on pulse ox by EMS See plan above Solu-Medrol x1 Prednisone 06/20/25: * Continue Prednisone, which may be the increase in pt's WBC's. (5) Leukocytosis: Code(s): D72.829 - Elevated white blood cell count, unspecified Status: Acute Assessment and Plan: 06/20/25: * Increase in WBC's to 16.1 from 5.0 yesterday. * Etiology new infection vs. Steroids * CXR negative for new or worsening, UA negative * Trend values (6) HTN (hypertension): Qualifiers: Hypertension type: primary hypertension Qualified Code(s): I10 - Essential (primary) hypertension Code(s): I10 - Essential (primary) hypertension Status: Chronic Assessment and Plan: Continue losartan 06/20/25: * Continue current treatment. * Stable BP (7) Hyperlipidemia: Qualifiers: Hyperlipidemia type: mixed hyperlipidemia Qualified Code(s): E78.2 - Mixed hyperlipidemia Code(s): E78.5 - Hyperlipidemia, unspecified Status: Chronic Assessment and Plan: Continue home medication 06/20/25: * Continue Atorvastatin (8) Chronic anemia: Code(s): D64.9 - Anemia, unspecified Status: Acute Assessment and Plan: At baseline No signs of acute bleeding CBC in a.m. 06/20/25: * Overall improving. (9) NSTEMI (non-ST elevated myocardial infarction): Onset Date: 08/2019 Code(s): I21.4 - Non-ST elevation (NSTEMI) myocardial infarction Status: Acute Assessment and Plan: 08/2019 Continue nitro, metoprolol, losartan, and aspirin 06/20/25: * Stable Plan Will be ready for discharge tomorrow. Time Spent With Patient Time with patient: 25 - 35 minutes Subjective Date/time seen: 06/20/25 13:48 Interval history: This pt was evaluated today without new complaints. He is comfortably sitting up in bed without distress. He does complain of some burning with urination, and urine was checked to be negative for acute infection yesterday. His WBC's today were increased from 5.0 yesterday to 16.2 today. This may be due to the dosing of Prednisone, but will rule out any new infection. UA from yesterday normal, and CXR today without any concern for new/acute infection. Pt has been cleared (yesterday) for discharge, but states he doesn't feel ready. He has been refused by multiple rehabs as he has done well with PT and OT. Pt has been SBA walking around in his room to bathroom, etc. After ensuring no uptick in WBC's on serial labs in AM, pt will be ready to discharge providing no further acute infectious symptoms. Review of Systems Review of Systems: All systems reviewed & are unremarkable except as noted in HPI and below Exam Narrative: General: well appearing, appears stated age. HEENT: normocephalic, atraumatic. MMM, patent oropharynx without erythema, edema or exudate. Neck supple without JVD, lymphadenopathy, or bruit. Supple AROM. Respiratory: Coarse lung sounds in all short. Cardiovascular: RRR, S1 and S2 present. No S3, S4, m,r,g,h Abdomen: NT, Soft, BS in all 4 quads. Extremities: No cyanosis, clubbing, or edema present. Pulses are palpable 2/2. Active ROM to all four extremities. Neuro: Alert and orientated x 4. PERRLA. Cranial nerves 2-12 intact without focal deficit. Skin: Warm, dry, and intact, without rash, erythema, or lesion. Psych: Normal affect Objective Data Vital Signs Vital Signs: Vital Signs - 24 hr 06/19/25 14:00 06/19/25 14:13 06/19/25 20:00 Temperature 97.9 F Pulse Rate 88 91 Respiratory Rate 18 20 Blood Pressure 104/50 L Pulse Oximetry 96 95 Oxygen Delivery Nasal Cannula Oxygen Flow Rate 4 06/19/25 21:23 06/19/25 21:26 06/19/25 21:36 Temperature 97.5 F L Pulse Rate 75 73 81 Respiratory Rate 20 20 20 Blood Pressure 111/54 L Pulse Oximetry 96 Oxygen Delivery Oxygen Flow Rate 06/20/25 02:46 06/20/25 02:52 06/20/25 06:00 Temperature 97.3 F L Pulse Rate 87 84 83 Respiratory Rate 20 20 20 Blood Pressure 125/57 L Pulse Oximetry 95 Oxygen Delivery Oxygen Flow Rate 06/20/25 08:53 06/20/25 08:53 06/20/25 09:10 Temperature Pulse Rate 96 96 100 Respiratory Rate 20 20 20 Blood Pressure Pulse Oximetry 93 Oxygen Delivery Nasal Cannula Oxygen Flow Rate 4 06/20/25 10:15 Temperature Pulse Rate Respiratory Rate Blood Pressure Pulse Oximetry 93 Oxygen Delivery Nasal Cannula Oxygen Flow Rate 4 Intake/Output Intake/Output: Intake & Output 06/17/25 06/18/25 06/19/25 06/20/25 23:59 23:59 23:59 23:59 Intake Total 1480 2210 920 240 Output Total 3350 3499 274 7241 Balance -1870 1100 20 -910 Meds/Results Medications: Active Medications Generic Name Dose Route Start Last Admin Trade Name Freq PRN Reason Stop Dose Admin Acetaminophen 650 mg 06/15/25 18:22 Acetaminophen 325 Mg Tablet PO Q4H PRN Mild Pain (1-3) or Fever Acetylcysteine 400 mg 06/17/25 20:00 06/20/25 08:52 Acetylcysteine 20% Inhal Soln 800 Mg/4 Ml Vial INHALATION 400 mg TIDRT GIOVANNY Administration Acyclovir 400 mg 06/16/25 21:00 06/20/25 12:11 Acyclovir 400 Mg Tablet PO 400 mg TID GIOVANNY Administration Albuterol/Ipratropium 3 ml 06/15/25 20:00 06/20/25 08:51 Ipratropium 0.5 Mg/Albuterol Sulfate 2.5 Mg Ampul.Neb 3 Ml INHALATION 3 ml Q6HRT GIOVANNY Administration Aspirin 81 mg 06/16/25 09:00 06/20/25 10:11 Aspirin 81 Mg Enteric Tablet PO 81 mg DAILY GIOVANNY Administration Atorvastatin Calcium 80 mg 06/16/25 09:00 06/20/25 10:12 Atorvastatin 40 Mg Tablet PO 80 mg DAILY GIOVANNY Administration Baclofen 10 mg 06/15/25 18:01 Baclofen 10 Mg Tablet PO Q12H PRN muscle spasm Benzonatate 200 mg 06/16/25 09:00 Benzonatate 100 Mg Capsule PO TID PRN Cough Bupropion HCl 150 mg 06/16/25 21:00 06/20/25 10:11 Bupropion Hcl Sr (12 Hr) 150 Mg Tab PO 150 mg Q12HR GIOVANNY Administration Buspirone HCl 2.5 mg 06/17/25 21:00 06/20/25 10:13 Buspirone Hcl 2.5 Mg Tablet PO 2.5 mg Q12HR GIOVANNY Administration Docusate Sodium 100 mg 06/16/25 09:00 06/20/25 10:11 Docusate Sodium 100 Mg Capsule PO 100 mg BID GIOVANNY Administration Enoxaparin Sodium 40 mg 06/16/25 09:00 06/20/25 10:17 Enoxaparin 40 Mg/0.4 Ml Syringe SUB-Q 40 mg DAILY GIOVANNY Administration Ethambutol HCl 1,200 mg 06/16/25 09:00 06/20/25 10:12 Ethambutol Hcl 400 Mg Tablet PO 1,200 mg DAILY GIOVANNY Administration Fenofibrate 145 mg 06/16/25 09:00 06/20/25 10:11 Fenofibrate Nanocrystallized 145 Mg Tablet PO 145 mg QAM GIOVANNY Administration Fluticasone/Umeclidinium/Vilanterol 1 puff 06/16/25 08:00 06/20/25 08:51 Fluticasone/Umeclidin/Vilanter 100-62.5-25 Mcg Ellipta INHALATION 1 puff DAILYRT GIOVANNY Administration Furosemide 20 mg 06/16/25 09:00 06/20/25 10:12 Furosemide Inj 40 Mg/4 Ml Vial IV PUSH 20 mg DAILY GIOVANNY Administration Hydroxyzine HCl 25 mg 06/17/25 19:54 Hydroxyzine Hcl 25 Mg Tablet PO QID PRN anxiety Lorazepam 0.5 mg 06/15/25 18:01 06/19/25 20:40 Lorazepam (*Crx) 0.5 Mg Tablet PO 0.5 mg BID PRN Administration anxiety Losartan Potassium 25 mg 06/16/25 09:00 06/20/25 10:11 Losartan Potassium 25 Mg Tablet PO 25 mg DAILY GIOVANNY Administration Metoprolol Succinate 50 mg 06/15/25 21:00 06/19/25 20:40 Metoprolol Succinate Ext Rel 50 Mg Tabcr PO 50 mg HS GIOVANNY Administration Morphine Sulfate 30 mg 06/16/25 09:00 06/20/25 09:34 Morphine Sulfate (*Crx) 30 Mg Tabcr PO 30 mg DAILY GIOVANNY Administration Nitroglycerin 0.4 mg 06/15/25 18:20 Nitroglycerin Sl 0.4 Mg Tablet SUBLINGUAL Q5M PRN chest pain Sulindac 200 Mg 200 mg 06/16/25 17:00 06/20/25 10:18 Tablet Home Med PO 07/16/25 16:59 200 mg BID GIOVANNY Administration Rifabutin 150 Mg 300 mg 06/18/25 09:00 06/20/25 10:18 Capsule Home Med PO 07/18/25 08:59 300 mg DAILY GIOVANNY Administration Pantoprazole Sodium 40 mg 06/16/25 09:00 06/20/25 10:12 Pantoprazole 40 Mg Tablet PO 40 mg QAM GIOVANNY Administration Polyethylene Glycol 17 gm 06/20/25 09:00 06/20/25 10:11 Polyethylene Glycol 3350 17 Gm Powd.Pack PO 17 gm QAM GIOVANNY Administration Prednisone 40 mg 06/16/25 08:00 06/20/25 10:12 Prednisone 20 Mg Tablet PO 40 mg DAILY@0800 GIOVANNY Administration Sertraline HCl 50 mg 06/16/25 09:00 06/20/25 10:13 Sertraline Hcl 50 Mg Tablet PO 50 mg DAILY GIOVANNY Administration Sodium Chloride 5 ml 06/18/25 20:00 06/20/25 08:52 Sodium Chlor 3% 15 Ml Neb (Respiratory Therapy) INHALATION 5 ml TIDRT GIOVANNY Administration Tamsulosin HCl 0.4 mg 06/16/25 09:00 06/20/25 10:13 Tamsulosin Hcl 0.4 Mg Capsule PO 0.4 mg DAILY GIOVANNY Administration Tobramycin/Dexamethasone 1 drop 06/15/25 21:00 06/20/25 12:11 Tobramycin/Dexamethasone Op 2.5 Ml Btl EACH EYE 1 drop QID GIOVANNY Administration Trazodone HCl 100 mg 06/15/25 21:00 06/19/25 20:39 Trazodone Hcl 50 Mg Tablet PO 100 mg HS GIOVANNY Administration Radiology Results: ITS Impressions Chest X-Ray 06/20/25 10:11 IMPRESSION: Redemonstration of volume loss within the right hemithorax with adjacent compressive atelectasis and a small right-sided pleural effusion. Labs Labs: Laboratory Results - last 24 hr 06/20/25 07:52 WBC 16.2 H RBC 3.19 L Hgb 9.1 L Hct 29.2 L MCV 91.5 MCH 28.5 MCHC 31.2 L RDW 15.2 H Plt Count 170 MPV 10.1 Immature Gran % (Auto) 0.9 H Neut % (Auto) 88.6 H Lymph % (Auto) 4.6 L Cowley % (Auto) 5.8 Eos % (Auto) 0.0 Baso % (Auto) 0.1 L Lymph # (Auto) 0.75 L Cowley # (Auto) 0.9 H Eos # (Auto) 0.0 Baso # (Auto) 0.0 Abs Immat Gran (auto) 0.15 H Absolute Neuts (auto) 14.4 H Absolute Nucleated RBC 0.000 Nucleated RBC % 0.0 Sodium 134 L Potassium 4.5 Chloride 97 L Carbon Dioxide 31 H Anion Gap 6 BUN 27 H Creatinine 1.20 Estim Creat Clear Calc 45 Estimated GFR 58 L Glucose 96 Calcium 9.2 Magnesium 1.8 Total Bilirubin 0.4 AST 28 ALT 17 Alkaline Phosphatase 93 Total Protein 6.5 Albumin 3.3 L Quality VTE Prophylaxis VTE prophylaxis: pharmacologic ordered
--- NOTE | 2025-06-20 15:36 | PM.PNPUL ---
Progress Note: A&P Assessment and Plan (1) Chronic obstructive pulmonary disease: Code(s): J44.9 - Chronic obstructive pulmonary disease, unspecified Status: Acute Assessment and Plan: Gold grade 2 group E COPD; CT scan with panlobular emphysema. Testing; 04/28/2025: Home O2 assessment: Final recommendation was 2 L at rest and 5 L with activity. Home management is Bevespi (glycopyrrolate-formoterol, NO ICS) hx of Pseudomonas aeruginosa on 10/10/2021 and 04/26/2025; Alcaligenes xylosoxidans sensitive to meropenem and Septra, intermediate to Zosyn, resistant to ceftaz, levofloxacin and imipenem. * alpha 1 anti-trypsin genotype MM, [id number] apical predominant centrilobular and paraseptal emphysema on his CT scan from 10/11/2021 * 12/16/2023 PFT; mild obstruction with FEV1 68%, ratio 61%. No bronchodilator response, hyperinflation, severely decreased DLCO the remains mildly decreased when adjusted for alveolar volume. Compared to 01/01/2022 had been a significant decrease in the FVC, FEV1, total lung capacity, functional residual capacity and diffusing capacity. PMH: COVID pneumonia on 09/10/2021, 11/13/2023 treated with Paxlovid, rebound symptoms treated with clarithromycin and doxycycline. Recurrent pneumonias; 02/25/2024 for pneumonia with sputum showing Haemophilus treated with steroids. 10/04/2024: White blood cell count 11.1 eosinophils 3.2%=355/uL. Eosinophils elevated. (2) SNEHA (mycobacterium avium-intracellulare): Code(s): A31.0 - Pulmonary mycobacterial infection Status: Acute Assessment and Plan: SNEHA in sputum, multiple pulmonary infections requiring antibiotics on many date during 2023 and 2024. He saw Kenisha OSWALD on May 02 while inpatient at [facility], was started on current regimen without azithromycin due to hearing loss; he is on rifabutin 300 mg a day, ethambutol 1200 mg a day. SNEHA always requires 3 medications, so he will need something to replace azithromycin. Ina with the ID team called today, said that he needs ot be on azithromycin 250 mg a day decreased from 500 mg; this is lower due to the dose related hearing loss. He will continue rifabutin 300 mg and EMB 1200 mg. Follow up appointment at [facility] ID June 27. (3) History of tobacco use: Code(s): Z87.891 - Personal history of nicotine dependence Status: Acute Assessment and Plan: History of 60-80 pack years, none since 2018. (4) Hearing loss: Qualifiers: Hearing loss type: unspecified Laterality: unspecified laterality Qualified Code(s): H91.90 - Unspecified hearing loss, unspecified ear Code(s): H91.90 - Unspecified hearing loss, unspecified ear Status: Acute Assessment and Plan: Sudden noticeable loss of hearing particularly in the left ear over the last week, moderately improved with some fluctuation over the last few days since stopping azithromycin 500 mg several days. The right ear has been not functioning well for several years but the left ear suddenly has worsen. He is on medicines for SNEHA for the last 6 weeks. plan: Restart azithromycin 250 mg a day. He will need outpatient audiology testing. Plan plan: 1) Restart azithromycin 250 mg a day, lower dose, when Levaquin is completed. This recommendation came from his ID team at [facility]. Hearing is somewhat better. He has an appt with these doctors Jun 27. He needs hearing testing as an out patient. 2) Continue BuSpar low dose for anxiety. 3) The Lucia in the sputum is not a pathogen that needs treatment. 5) He does not qualify for in patient rehab, he needs to have a plan for home health, a fixed schedule, pulmonary hygiene 3-4 times per day, deep breathing, use his PAP valve 10 exhales t.i.d with 3% saline 2 ml, Mucomyst 20% t.i.d, albuterol neb t.i.d. Continue valve at home. Encourage coughing and expectoration. He has none of this going on at home right now. 6) He needs nebulized bronchodilator for his machine at home, he does not have any albuterol currently however he does have a nebulizer. Add albuterol to his home medications. 7) He is a candidate for a vibratory vest at home with bronchiectasis on his CT scan. Respiratory therapy may be able to help us with this on Thursday. I placed a request for RT to help notify his DME for this. 8) He should go home on Bevespi, no inhaled steroid due to MAC. Home med list was incorrect, said that he was on Breztri. Subjective Date/time seen: 06/20/25 15:36 Interval history: 06/17/2025; new consult; Russell Morse is an 80-year-old man with SNEHA infection, COPD, returns to the ER with shortness of breath and hypoxia. He was recently admitted on 05/30/2025 for same conditions, was transferred to [facility] from 06/04 to 06/08, went home on Levaquin to complete 750 mg po on June 18. He was also on SNEHA treatment including azithromycin 500 mg/day, Rifabutin 300 mg/day, ethambutol 1200 mg/ day. Sim said that the patient went home but was very weak, could not even walk to the bathroom easily. He and his have been taking off work to care for him at home because he now cannot do almost any self care. He cannot get to the bathroom by himself. With walking to the bathroom on his usual 4 L his saturation is dropping to 79-82%. He can not get to the kitchen by himself. He was supposed to start outpatient therapy this week but was readmitted quickly so this did not happen. Marco tells me that his father had a recent significant loss of hearing in the left ear. He has had hearing loss in the right ear for years. His CXR June 15 is worse compared to his May 30 CXR. He has increased infiltrate and consolidation in the right base. 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 Family hx: Brothers had COPD 8 years ago; pt, lives with son Marco and his , is alone in the day; sometimes daughter Sadia comes over, 17 hours a week, O2: has been on 2-3 years, wanted to be on it, was sneaking it from his who had severe lung disease. June 19, 2025; follow up; Hearing better since the azithromycin was stopped. He is using the vibratory vest and Cornet valve. I increased the resistance on the Cornet to 3rd level. He says that he has one like it at home, does not use it. He is coughing small amounts of sputum. On nasal cannula 4 L, saturation is 93%. This is acceptable oxygenation. He has required O2 at 4 L during a 2020 admission. I spoke with his son about the PT/OT note. The patient was evaluated and probably is not going to meet criteria to get into rehab at discharge. It is possible that when the patient is supported in the hospital, he puts forth a lot of effort, has ability to walk distances and perform tasks that he will not do at home. His daughter is a paid caregiver for him, and he might not want the challenge of exercising at home. I told his son that the more you move, the farther away from the grave you stay and his dad has to want to do these activities for himself, including pulmonary hygiene, nebulized treatments, mucolytics, exercise, and keeping a schedule. He needs a routine. Gram stain today showed few epithelial cells, many Gram negative rods. June 21, 2025; follow up; I spoke with Ina from the ID clinic; she collaborated with Dr Angie santos robbins plan for a lower dose of azithromycin, 250 mg a day. His hearing loss was likely dose related, and continuing azithromycin at a lower dose is the best option.The patient says that his hearing overall if better, still fluctuates some. He has an appt with the ID clinic Jun 27. He feels better overall, still wants to go to rehab at discharge, does not understand why he cannot do this. I explained that his physical capability is better than he appreciates, and he does not need to have rehab in a facility. He is totally able to have exercise and pulmonary hygiene at home. He will need to work with his daughter, Sadia, to perform the exercises and use his Cornet valve at home to maintain improved airway clearance and to build strength. Like home schooling, he needs to have a schedule, a plan, and needs to track his progress. If he does not participate, SNEHA can worsen, and this is a fatal disease. wbc today is 10k. His sputum from 06/18/25 grew Lucia, not a pathogen, but a message that he has been on many antibiotics. 2024 admissions: * 05/30/2025 [facility] admission shortness of breath; transferred to [facility] 06/04 to 06/07; discharged on Levaquin to continue until June 18; continue SNEHA meds * 05/12/2025, ER visit, shortness of breath, home. * 04/25/25 -04/28/25; admitted [facility] respiratory distress, hypoxemia, transferred to [facility]; ID saw him 05/02/25; SNEHA; started Rx w azithromycin 500 mg/D, Rifabutin 300 mg/D, ethambutol 1200 mg/ day initial sputum with SNEHA was 12/16/2024 with AFB verified on 01/20/25 and grew SNEHA on 02/01/25.?Sensitivities 03/28/25. QuantiFERON gold was negative on 01/24/25. ORGANISM: MYCOBACTERIUM AVIUM COMPLEX AMIKACIN: 16 S mcg/mL AMIKACIN (LIPOSOMAL, INHALED): 16 S mcg/mL CIPROFLOXACIN: >8 mcg/mL CLARITHROMYCIN: 2 S mcg/mL CLOFAZIMINE: 0.25 mcg/mL DOXYCYCLINE: >8 mcg/mL LINEZOLID: 16 I mcg/mL MINOCYCLINE: >8 mcg/mL MOXIFLOXACIN: 4 R mcg/mL RIFABUTIN: 1 mcg/mL RIFAMPIN: >4 mcg/mL STREPTOMYCIN: >32 * This is a corrected result. * A prior result that was reported as final has been changed. 1. Mycobacterium avium complex M.I.C. RX --------- --- Rifampin AFB >4 S Streptomycin AFB R Amikacin AFB 16 S Moxifloxacin AFB R 03/02/2025 patient with increased phlegm production and treated for bronchitis with Septra DS 2 tablets twice a day x 7 days. PMH: CHF with reduced ejection fraction, CKD stage 3, COPD, NSTEMI, polio as a child; recent SNEHA pneumonia DATA * 06/15/2025; CXR; IMPRESSION: Worsening bibasilar airspace disease, right greater than left. This may be the result of pulmonary edema versus pneumonia in appropriate clinical settings. Clinical correlation is recommended. Short-term follow-up chest radiograph is recommended after appropriate clinical therapy to document resolution. May 30, 2025 ; CXR: Small right pleural effusion present. There is worsening hazy and interstitial disease in the right lung base and right midlung. Possible minimal haziness left lung base. Cardiomediastinal silhouette is stable. Bones and soft tissues are unremarkable. Impression: Probable mild pulmonary edema, worse in the right lung than left, versus possibly pneumonia. Correlate clinically. Small right pleural effusion. May 30, 2025 Below is information from prior admissions 04/26/2025: This is a new pulmonary consult for COPD and MAC. 80-year-old with a history of coronary artery disease status post non ST elevation [place] August of 2019, ischemic cardiomyopathy, hypertension, hyperlipidemia, Gold grade 2 group B COPD on home oxygen 7 L at rest, with activity and with sleep and MAC lung disease. Regarding his COPD, patient with 60 pack year tobacco use quit in 2019, alpha 1 anti trypsin genotype MM, [id number] apical predominant centrilobular and paraseptal emphysema on his CT scan from 10/11/2021. Of note he has had COVID pneumonia on 09/10/2021 and Pseudomonas aeruginosa on 10/10/2021, and 04/26/2025. His PFTs from 12/16/2023 show mild obstruction with FEV1 68%, ratio 61%. No bronchodilator response, hyperinflation, severely decreased DLCO the remains mildly decreased when adjusted for alveolar volume. Compared to 01/01/2022 had been a significant decrease in the FVC, FEV1, total lung capacity, functional residual capacity and diffusing capacity. When admitted for pneumonia had an ABG on 02/25/2024 on 3 L nasal cannula 7.44/36/67. 10/04/2024: ABG on 2 L 7.43/41/75. 10/04/2024: White blood cell count 11.1 eosinophils 3.2%=355/uL. 04/09/2024 white blood cell count 11.1, eosinophils 0.4%=44/uL. Tested positive for COVID 11/13/2023 treated with Paxlovid, rebound symptoms treated with clarithromycin and doxycycline. Hospitalize 02/25/2024 for pneumonia with sputum showing Haemophilus treated with steroids. Hospitalized 04/10/24 to 04/12/24 for COPD exacerbation treated with prednisone and azithromycin. 09/08/2024 cold symptoms, treated with doxycycline and prednisone taper. 10/04/2024 ED visit for shortness of breath treated for fluid overload and COPD exacerbation with prednisone and Augmentin. 11/04 admitted to [facility] with congestive heart failure and pneumonia no evidence of COPD exacerbation. 11/20 admitted to [facility] for shortness of breath, fluid overload and possible pneumonia. 12/02/2024 through 12/06/2024 admitted to [facility] treated for pneumonia. sputum from 12/17/2024 grew out Alcaligenes xylosoxidans sensitive to meropenem and Septra, intermediate to Zosyn, resistant to ceftaz, levofloxacin and imipenem. 03/02/2025 patient with increased phlegm production and treated for bronchitis with Septra DS 2 tablets twice a day x 7 days. 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 Sputum on 12/15/2024 with AFB verified on 01/14/25 and grew SNEHA on 03/03/25. Sensitivities 03/20/25. On 03/20/25 patient referred to [facility] with appointment scheduled for 05/02/2025. Sputum on 12/16/2024 with AFB verified on 01/20/25 and grew SNEHA on 02/01/25. Sensitivities 03/28/25. QuantiFERON gold was negative on 01/24/25. Patient was treated for bronchitis on 03/02/2025 and improved with Septra. He was at his baseline which is dyspnea on exertion at 50-75 feet. He is using 7 L at rest, with saturations 95-97% at home. He is using 7 L with activity with saturations 92%. He is using 7 L at night. He typically has no daily fevers. He coughs phlegm 2 times a day which is described as lynn. Patient tells me he was at his baseline on 04/24/2020 5. On 04/25/2025 he developed a fever, increased cough, worsening dyspnea on exertion with the same amount of phlegm. Family reported some confusion. He was brought to the emergency department. 04/25/25 through 04/28/2025: admitted to [facility] for respiratory distress and hypoxemia. I spoke with the emergency room physician and requested that he be transferred to [facility] said he could be evaluated by an Infectious Disease team which we do not have at [facility]. Patient was referred to [facility] but no beds were available. In the meantime I recommended ceftriaxone, azithromycin and Septra. 04/26/25: a CT angiogram of the chest: I have compared this to CT scans from 11/20/2024 and 08/29/2024 and 02/25/2024. Current CT shows no PE, worsening consolidation and infiltrates in the right lower lobe compared to 11/20/2024 and 02/25/2024. Compared to CT scan on 02/25/2024 currently there are some areas of improved consolidation in the right lower lobe and some different areas with worsening consolidations in the right lower lobe. There is unchanged consolidation in the posterior left lower lobe with no change compared to 11/20/2024, 08/29/2024 and that have improved from 02/25/2024. Currently there are patchy consolidations in the right middle lobe some which were present on 11/20/2024 and some that are new. There were no infiltrates on 08/29/2024 in the right middle lobe. Modified barium swallow normal. Sputum has grown out normal chico. 04/28/2025: Home O2 assessment: Final recommendation was 2 L at rest and 5 L with activity. discharged on cefdinir x3 days, azithromycin x2 days, Septra 2 tablets p.o. b.i.d. x3 days, but of SP, guaifenesin 1200 b.i.d., Lasix 20 p.o. q.day, 4 L at night. After discharge respiratory pathogen panel was positive for human metapneumovirus. He was to be evaluated with [facility] on 05/02/2025. sputum for AFB collected on 04/27/2025 and 04/28/2025. 05/02/2025: Patient was seen at [facility] infectious Disease Clinic. We have contacted the clinic multiple times to get the note and have been unsuccessful. The patient tells me he has no idea what they said or recommended other than to follow-up in July. 05/12/2025: Seen in the emergency department for progressively worse shortness of breath, sputum production, BNP 3300, COVID, influenza, RSV RT PCR negative. ABG 7.39/40/88 on 2 L nasal cannula. prescribed Septra 1 tablet p.o. q.12 hours x7 days 05/22/2025: Patient called his PCP coughing all day with a little bit of phlegm raspy throat. levofloxacin 750 q.day prescribed X 10 days. 05/29/25: I spoke to the patient and usually is on 2 L at rest and 5 with activity. I spoke to the patient today and he is on 4-5 L at rest with saturations 87%. His saturations with 5 L activity are in the mid 80s. He says he has not gained weight and is not swollen. He has finished 10 days of antibiotics through his PCP. I recommended the patient be evaluated in the emergency department and I recommended that he go to [facility] emergency department so that he could be evaluated by their Pulmonary team and their Infectious Disease team. He voiced understanding. 05/30/2025: Patient presented to [facility] ED with complaints of shortness of breath, exertional hypoxemia. He finished his outpatient Levaquin today. blood pressure 112/47, heart rate 79, saturation 96% on 4 L nasal cannula. Afebrile, creatinine 1.13. White blood cell count 11.8. I spoke to the emergency room and recommended he be transferred to [facility] to be evaluated by the Infectious Disease team and pulmonary team. Patient was accepted but no beds available. MRSA swab negative. Started on ceftriaxone, azithromycin and Septra. Patient given Lasix 40 IV x1. 05/31/2025: Currently the patient tells me he is breathing at his baseline at rest. He has worsening dyspnea on exertion. His cough and phlegm production or better than yesterday. He denies fever, chills, rigors, sweats. He has no hemoptysis. He has no worsening orthopnea, he has stable nocturia every 2 hours at home. When I enter the room he was on 5 L nasal cannula saturations 99%. I decreased him to 4 L nasal cannula saturations were 94%. I decreased him to 2 L nasal cannula saturations were 92%. DATA 04/26/2025: EXAMINATION: CTA chest PE protocol DATE: 04/26/2025 13:46 CDT INDICATION: Shortness of breath TECHNIQUE: Computed tomographic angiography (CTA) of the chest was performed with 100 mL Omnipaque-350 intravenous contrast. The dose-length product was 256.22 mGy-cm. Maximum intensity projection 3D-reconstructions of the aorta and other arteries were constructed by the technologist on a separate workstation. Automated exposure control and iterative reconstruction technique were employed. COMPARISON: Chest x-ray dated 04/25/[address] dated 11/20/2024. FINDINGS: Small right pleural effusion. Trace left pleural effusion. There is mediastinal lymphadenopathy. There is right hilar lymphadenopathy. There is atherosclerosis of the aorta and coronary arteries. Small hiatal hernia. Heart size normal. Pulmonary arteries are enlarged, consistent with pulmonary hypertension. Study is technically adequate without evidence for pulmonary embolism. There is patchy bilateral airspace disease of the right upper, right middle and bilateral lower lobes, consistent with multifocal pneumonia. No endobronchial lesions. There is emphysema. No suspicious pulmonary nodules or masses. Mild thoracic spondylosis. No focal lytic or blastic lesions. IMPRESSION: 1. Multifocal airspace disease, consistent with pneumonia. 2: Bilateral pleural effusions, right greater than left. 3: Mediastinal lymphadenopathy, likely reactive. 4.: Pulmonary artery enlargement, consistent with pulmonary hypertension. 5: Emphysema. My read: I have compared this to CT scans from 11/20/2024 and 08/29/2024 and 02/25/2024. Current CT shows no PE, , Small right pleural effusion, worsening consolidation and infiltrates in the right lower lobe compared to 11/20/2024 and 02/25/2024. Compared to CT scan on 02/25/2024 currently there are some areas of improved consolidation in the right lower lobe and some different areas with worsening consolidations in the right lower lobe. There is unchanged consolidation in the posterior left lower lobe with no change compared to 11/20/2024, 08/29/2024 and that have improved from 02/25/2024. Currently there are patchy consolidations in the right middle lobe some which were present on 11/20/2024 and some that are new. There were no infiltrates on 08/29/2024 in the right middle lobe. 01/02/25: Modified barium swallow: Impression: Moderate dysphagia 11/20/24: EXAMINATION:. Recommendations: Regular but easy to chew diet with regular liquids but patient must use chin tuck posture with all eating and drinking to prevent pharyngeal residual and instances of laryngeal penetration and aspiration. He was referral to outpatient speech therapy. 12/14/24: CRP 3.6, ESR 134, CPK 43, Aspergillus Niger IgE 0.31, very low level. Aspergillus Niger antibody negative, Aspergillus flatus antibody negative. Aspergillus fumigatus antibody negative. Rheumatoid factor 12.9, anti CCP antibody less than 16. TERRA screen positive with an anti-DNA antibody 27 (positive greater than 10), Anca screen negative, hypersensitivity pneumonitis panel negative. 01/24/2025: QuantiFERON gold negative. IgE 691 normal less than 114, rheumatoid factor 12.9. IgG 693, IgM 90, IgA 212, all normal. Aldolase 5.0 CTA chest PE protocol INDICATION: Hypoxia elevated d-dimer COMPARISON: 08/29/2024 and 10/11/2021. FINDINGS: No filling defects within the main or proximal pulmonary arteries. The thoracic aorta is unremarkable. No aneurysmal dilatation or dissection. The heart is of normal size, without pericardial effusion. Panlobular emphysematous disease is identified. Patchy groundglass opacification detected bilaterally. Small bilateral pleural effusions with adjacent compressive atelectasis Multiple subcentimeter areas of decreased attenuation within the liver, unchanged dating back to 10/11/2021. IMPRESSION: No pulmonary embolus. No aneurysmal dilatation or dissection within the thoracic aorta. Small bilateral pleural effusions with adjacent compressive atelectasis. 08/16/2024: Overnight oximetry on 3 L nasal cannula. The report in the computer status overnight oximetry on room air but this is mislabeled as the test was performed on 3 L. Recording duration 8 hours and 39 minutes. Basal saturation 92.1%. High saturation 96%. Low saturation 79%. Time with saturation less than or equal to 88% was 4 minutes and 58 seconds. I will continue oxygen 3 L at night. 06/24/2024: This is a 6 minute walk test. The test was performed and interpreted in accordance with the 2014 ERS/ATS task force guidelines. Of note, patient used to wheeled walker for stability and the testing was performed on his home portable oxygen concentrator at 3 L with pulse dose. Findings: The patient's resting 3 L oxygen saturation measured by pulse oximetry was 95% and heart rate was 80 bpm. Patient ambulated for 137 meters and oxygen saturation remained 91 to 92%. Heart rate at the end of the study was 94 bpm. The patient did not have rest or exertional hypoxemia on 3 L nasal cannula pulse dose with his portable oxygen concentrator. 02/25/24 - CTA chest (ER) - No PE identified. 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 There is patchy consolidation in the right middle and bilateral lower lobes with additional regions of tree-in-bud opacity scattered throughout both lungs consistent with multifocal pneumonia. There is associated bronchial wall thickening and mucous plugging in the bilateral lower lobes. Tiny left pleural effusion. No septal line thickening to suggest pulmonary edema. No pneumothorax. Mild cardiomegaly. Atherosclerotic coronary artery calcifications. No pericardial effusion. 02/25/2024: ABG on 4 L cannula 7.39/35/63 01/15/24 - Home O2 eval - Required 2L/min O2 with ambulation and none at rest. 12/16/23 - PFT The test was performed and results interpreted in accordance with the 2019 and 2005 ATS/ERS Task Force guidelines respectively using the Global Lung Function Initiative-2012 reference equations. Patient demonstrated good effort and cooperation. Reproducibility criteria were met. The quality of the pre bronchodilator spirometry maneuver was Grade A and post bronchodilator spirometry maneuver was Grade A. Findings: Spirometry: There is decreased maximal expiratory airflow at all lung volumes with concave expiratory flow tracing. The contour the inspiratory flow tracing is normal. The pre bronchodilator FVC is 3.33 L, 82% predicted. The pre bronchodilator FEV1 is 2.02 L, 68% predicted. The pre bronchodilator FEV1: FVC ratio 61%. The post bronchodilator FVC is 3.41 L, representing a 2% increase. The post bronchodilator FEV1 is 2.09 L, representing a 3% increase. The post bronchodilator FEV1: FVC ratio 61%. Plethysmography: The total lung capacity is 6.43 L, 89% predicted. The functional residual capacity is 4.14 L, 106% predicted. The residual volume is 3.10 L, 115% predicted. The residual volume: Total lung capacity ratio is 48%. Diffusing capacity: The diffusing capacity unadjusted for hemoglobin and carboxyhemoglobin is 9.0, 37% predicted. The diffusing capacity adjusted for alveolar volume is 2.29, 64% predicted. Comparison to previous pulmonary function testing on 01/01/2022 the post bronchodilator FVC has decreased from 4.38 L to 3.41 L. The post bronchodilator FEV1 has decreased from 3.11 L to 2.09 L. the total lung capacity is decreased from 7.39 L to 6.43 L. The functional residual capacity has decreased from 4.95 L to 4.14 L. The residual volume is unchanged from 2.93 L to 3.10 L. The diffusing capacity unadjusted for hemoglobin and carboxyhemoglobin is decreased from 14.9 to 9.0. The diffusing capacity adjusted for alveolar volume decreased from 2.63 to 2.29 Impression: There is a mild obstructive abnormality. There is no significant improvement after inhaling a single dose of albuterol. The increase in residual volume to total lung volume ratio is consistent with hyperinflation from an obstructive abnormality. The diffusing capacity unadjusted for hemoglobin and carboxyhemoglobin is severely decreased and remains mildly decreased when adjusted for alveolar volume. Compared to prior pulmonary function testing on 01/01/2022 there has been a significant decrease in the FVC, FEV1, total lung capacity, functional residual capacity and diffusing capacity with no significant change in the residual volume. 09/16/23 - Home O2 eval - Required 2L/min O2 with ambulation and none at rest. 01/01/22 - Home O2 eval - Patient did not require supplemental oxygen at rest or with exertion. 01/01/22 - PFTs - Mild obstructive abnormality with normal FEV1 without significant improvement after inhaling a single dose of albuterol. Lung volumes normal. The diffusing capacity unadjusted for hemoglobin is moderately decreased and normalizes when adjusted for alveolar volume. 12/18/21 - Overnight oximetry on room air - Time with saturation less than or equal to 88% was 4.0 minutes. Patient does not qualify for supplemental oxygen at night. 10/10/2021 - ABG on 4L NC - 7.44/43/70. 10/20/21 - Chest XR - Persistent patchy bilateral airspace disease with possible improvement in the left lung, compatible with pneumonia. 10/11/2021 - CTA chest - Extensive bilateral pulmonary infiltrates and likely reactive hilar or mediastinal adenopathy. Small right pleural effusion. No evidence of pulmonary embolism. 10/11/2021 - Echo - LV systolic function mildly reduced, EF 45-50%. Grade I diastolic dysfunction. The inferior wall, inferoseptal wall, basal inferolateral wall, and mid inferolateral wall are hypokinetic. Mild LA enlargement. No pulmonary hypertension. Review of Systems Review of Systems: All systems reviewed & are unremarkable except as noted in HPI and below Exam Narrative: GEN: Alert, oriented, not in distress. His hearing appears better, Nasal cannula O2 4 L/min -> sat 93-96%. He has Breathe Right nasal strips on the bridge of his nose due to right nostril collapsing easily. This has been a problem for years. 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 He is pleasant, does not appear to have insight. He asks about going to rehab. He does not accept that he has physical capability to allow him to put forth a lot of effort at home. Objective Data Vital Signs Vital Signs: Vital Signs - 24 hr 06/19/25 20:00 06/19/25 21:23 06/19/25 21:26 Temperature 36.4 C L Pulse Rate 75 73 Respiratory Rate 20 20 Blood Pressure 111/54 L Pulse Oximetry 95 96 Oxygen Delivery Nasal Cannula Oxygen Flow Rate 4 06/19/25 21:36 06/20/25 02:46 06/20/25 02:52 Temperature Pulse Rate 81 87 84 Respiratory Rate 20 20 20 Blood Pressure Pulse Oximetry Oxygen Delivery Oxygen Flow Rate 06/20/25 06:00 06/20/25 08:53 06/20/25 08:53 Temperature 36.3 C L Pulse Rate 83 96 96 Respiratory Rate 20 20 20 Blood Pressure 125/57 L Pulse Oximetry 95 93 Oxygen Delivery Nasal Cannula Oxygen Flow Rate 4 06/20/25 09:10 06/20/25 10:15 06/20/25 14:00 Temperature 35.8 C L Pulse Rate 100 92 Respiratory Rate 20 16 Blood Pressure 92/41 L Pulse Oximetry 93 96 Oxygen Delivery Nasal Cannula Oxygen Flow Rate 4 06/20/25 15:32 06/20/25 15:32 Temperature Pulse Rate 78 78 Respiratory Rate 20 20 Blood Pressure Pulse Oximetry 96 Oxygen Delivery Nasal Cannula Oxygen Flow Rate 4 Intake/Output Intake/Output: Intake & Output 06/17/25 06/18/25 06/19/25 06/20/25 23:59 23:59 23:59 23:59 Intake Total 1480 2210 920 240 Output Total 3350 1895 293 6132 Balance -1870 1100 20 -910 Meds/Results Medications: Active Medications Generic Name Dose Route Start Last Admin Trade Name Freq PRN Reason Stop Dose Admin Acetaminophen 650 mg 06/15/25 18:22 Acetaminophen 325 Mg Tablet PO Q4H PRN Mild Pain (1-3) or Fever Acetylcysteine 400 mg 06/17/25 20:00 06/20/25 15:29 Acetylcysteine 20% Inhal Soln 800 Mg/4 Ml Vial INHALATION 400 mg TIDRT GIOVANNY Administration Acyclovir 400 mg 06/16/25 21:00 06/20/25 12:11 Acyclovir 400 Mg Tablet PO 400 mg TID GIOVANNY Administration Albuterol/Ipratropium 3 ml 06/15/25 20:00 06/20/25 15:29 Ipratropium 0.5 Mg/Albuterol Sulfate 2.5 Mg Ampul.Neb 3 Ml INHALATION 3 ml Q6HRT GIOVANNY Administration Aspirin 81 mg 06/16/25 09:00 06/20/25 10:11 Aspirin 81 Mg Enteric Tablet PO 81 mg DAILY GIOVANNY Administration Atorvastatin Calcium 80 mg 06/16/25 09:00 06/20/25 10:12 Atorvastatin 40 Mg Tablet PO 80 mg DAILY GIOVANNY Administration Baclofen 10 mg 06/15/25 18:01 Baclofen 10 Mg Tablet PO Q12H PRN muscle spasm Benzonatate 200 mg 06/16/25 09:00 Benzonatate 100 Mg Capsule PO TID PRN Cough Bupropion HCl 150 mg 06/16/25 21:00 06/20/25 10:11 Bupropion Hcl Sr (12 Hr) 150 Mg Tab PO 150 mg Q12HR GIOVANNY Administration Buspirone HCl 2.5 mg 06/17/25 21:00 06/20/25 10:13 Buspirone Hcl 2.5 Mg Tablet PO 2.5 mg Q12HR GIOVANNY Administration Docusate Sodium 100 mg 06/16/25 09:00 06/20/25 10:11 Docusate Sodium 100 Mg Capsule PO 100 mg BID GIOVANNY Administration Enoxaparin Sodium 40 mg 06/16/25 09:00 06/20/25 10:17 Enoxaparin 40 Mg/0.4 Ml Syringe SUB-Q 40 mg DAILY GIOVANNY Administration Ethambutol HCl 1,200 mg 06/16/25 09:00 06/20/25 10:12 Ethambutol Hcl 400 Mg Tablet PO 1,200 mg DAILY GIOVANNY Administration Fenofibrate 145 mg 06/16/25 09:00 06/20/25 10:11 Fenofibrate Nanocrystallized 145 Mg Tablet PO 145 mg QAM GIOVANNY Administration Fluticasone/Umeclidinium/Vilanterol 1 puff 06/16/25 08:00 06/20/25 08:51 Fluticasone/Umeclidin/Vilanter 100-62.5-25 Mcg Ellipta INHALATION 1 puff DAILYRT GIOVANNY Administration Furosemide 40 mg 06/21/25 09:00 Furosemide 40 Mg Tablet PO DAILY GIOVANNY Hydroxyzine HCl 25 mg 06/17/25 19:54 Hydroxyzine Hcl 25 Mg Tablet PO QID PRN anxiety Lorazepam 0.5 mg 06/15/25 18:01 06/19/25 20:40 Lorazepam (*Crx) 0.5 Mg Tablet PO 0.5 mg BID PRN Administration anxiety Losartan Potassium 25 mg 06/16/25 09:00 06/20/25 10:11 Losartan Potassium 25 Mg Tablet PO 25 mg DAILY GIOVANNY Administration Metoprolol Succinate 50 mg 06/15/25 21:00 06/19/25 20:40 Metoprolol Succinate Ext Rel 50 Mg Tabcr PO 50 mg HS GIOVANNY Administration Morphine Sulfate 30 mg 06/16/25 09:00 06/20/25 09:34 Morphine Sulfate (*Crx) 30 Mg Tabcr PO 30 mg DAILY GIOVANNY Administration Nitroglycerin 0.4 mg 06/15/25 18:20 Nitroglycerin Sl 0.4 Mg Tablet SUBLINGUAL Q5M PRN chest pain Sulindac 200 Mg 200 mg 06/16/25 17:00 06/20/25 10:18 Tablet Home Med PO 07/16/25 16:59 200 mg BID GIOVANNY Administration Rifabutin 150 Mg 300 mg 06/18/25 09:00 06/20/25 10:18 Capsule Home Med PO 07/18/25 08:59 300 mg DAILY GIOVANNY Administration Pantoprazole Sodium 40 mg 06/16/25 09:00 06/20/25 10:12 Pantoprazole 40 Mg Tablet PO 40 mg QAM GIOVANNY Administration Polyethylene Glycol 17 gm 06/20/25 09:00 06/20/25 10:11 Polyethylene Glycol 3350 17 Gm Powd.Pack PO 17 gm QAM GIOVANNY Administration Prednisone 40 mg 06/16/25 08:00 06/20/25 10:12 Prednisone 20 Mg Tablet PO 40 mg DAILY@0800 GIOVANNY Administration Sertraline HCl 50 mg 06/16/25 09:00 06/20/25 10:13 Sertraline Hcl 50 Mg Tablet PO 50 mg DAILY GIOVANNY Administration Sodium Chloride 5 ml 06/18/25 20:00 06/20/25 15:31 Sodium Chlor 3% 15 Ml Neb (Respiratory Therapy) INHALATION 5 ml TIDRT GIOVANNY Administration Tamsulosin HCl 0.4 mg 06/16/25 09:00 06/20/25 10:13 Tamsulosin Hcl 0.4 Mg Capsule PO 0.4 mg DAILY GIOVANNY Administration Tobramycin/Dexamethasone 1 drop 06/15/25 21:00 06/20/25 12:11 Tobramycin/Dexamethasone Op 2.5 Ml Btl EACH EYE 1 drop QID GIOVANNY Administration Trazodone HCl 100 mg 06/15/25 21:00 06/19/25 20:39 Trazodone Hcl 50 Mg Tablet PO 100 mg HS GIOVANNY Administration Radiology Results: ITS Impressions Chest X-Ray 06/20/25 10:11 IMPRESSION: Redemonstration of volume loss within the right hemithorax with adjacent compressive atelectasis and a small right-sided pleural effusion. Labs Labs: Laboratory Results - last 24 hr 06/20/25 07:52 WBC 16.2 H RBC 3.19 L Hgb 9.1 L Hct 29.2 L MCV 91.5 MCH 28.5 MCHC 31.2 L RDW 15.2 H Plt Count 170 MPV 10.1 Immature Gran % (Auto) 0.9 H Neut % (Auto) 88.6 H Lymph % (Auto) 4.6 L [place] % (Auto) 5.8 Eos % (Auto) 0.0 Baso % (Auto) 0.1 L Lymph # (Auto) 0.75 L [place] # (Auto) 0.9 H Eos # (Auto) 0.0 Baso # (Auto) 0.0 Abs Immat Gran (auto) 0.15 H Absolute Neuts (auto) 14.4 H Absolute Nucleated RBC 0.000 Nucleated RBC % 0.0 Sodium 134 L Potassium 4.5 Chloride 97 L Carbon Dioxide 31 H Anion Gap 6 BUN 27 H Creatinine 1.20 Estim Creat Clear Calc 45 Estimated GFR 58 L Glucose 96 Calcium 9.2 Magnesium 1.8 Total Bilirubin 0.4 AST 28 ALT 17 Alkaline Phosphatase 93 Total Protein 6.5 Albumin 3.3 L
[2025-06-20] MEDS: METOPROLOL SUCCINATE EXT REL 50 MG TABCR PO (20:48)
[2025-06-21] VITALS (14 sets, daily range): BP systolic 97–102; BP diastolic 45–58; PULSE 73–81; RESP 14–20; TEMP 35.9–36.6; O2SAT 92–96
[2025-06-21] MEDS: IPRATROPIUM 0.5 MG/ALBUTEROL SULFATE 2.5 MG AMPUL.NEB 3 ML INHALATION ×4 (01:52→19:48)
[2025-06-21 06:49] LABS: Hematocrit 26.7 % (42.0-52.0); Hemoglobin 8.1 g/dL (14.0-18.0); Immature Granulocyte Percent A 1.4 % (0-0.5); Lymphocytes Absolute Auto 0.75 K/mm3 (0.9-3.2); Mean Corpuscular HGB Conc 30.3 g/dl (32-36); Mean Corpuscular Hemoglobin 27.9 pg (26-34); Mean Corpuscular Volume 92.1 fl (80-100); Nucleated Red Blood Cells Absolute Auto 0.000 K/mm3 (0.0-0.012); Nucleated Red Blood Cells Perc 0.0 % (0.0-0.2); Platelet Count Result 173 k/mm3 (150-375); Red Blood Count 2.90 M/mm3 (4.6-6.20); White Blood Count 10.0 K/mm3 (4.5-10.0)
[2025-06-21 07:36] LABS: Alanine Aminotransferase 16 U/L (6-50); Albumin Level 2.9 g/dL (3.5-5.1); Alkaline Phosphatase 96 U/L (38-126); Anion Gap 6 mmol/L (4-12); Aspartate Amino Transferase 29 U/L (17-59); Bilirubin,Total 0.3 mg/dL (0.2-1.3); Blood Urea Nitrogen 37 mg/dL (9-20); Calcium 8.6 mg/dL (8.4-10.2); Carbon Dioxide 29 mmol/L (22-30); Chloride 98 mmol/L (98-107); Estimated CRCL calculation 42 ml/min; Estimated Glomerular Filt Rate 52; Glucose 92 mg/dL (65-110); Magnesium 2.0 mg/dL (1.6-2.3); Potassium 4.2 mmol/L (3.4-5.0); Sodium 133 mmol/L (137-145); Total Protein 5.9 g/dL (6.3-8.2)
[2025-06-21] MEDS: SODIUM CHLOR 3% 15 ML NEB (RESPIRATORY THERAPY) 5 ML INHALATION ×3 (08:05→19:49)
[2025-06-21] MEDS: ACETYLCYSTEINE 20% INHAL SOLN 800 MG/4 ML VIAL 400 MG INHALATION ×3 (08:06→19:50)
[2025-06-21] MEDS: FLUTICASONE/UMECLIDIN/VILANTER 100-62.5-25 MCG ELLIPTA 1 PUFF INHALATION (08:07)
[2025-06-21] MEDS: TOBRAMYCIN/DEXAMETHASONE OP 2.5 ML BTL 1 DROP EACH EYE ×4 (08:48→21:34)
[2025-06-21] MEDS: ENOXAPARIN 40 MG/0.4 ML SYRINGE SUB-Q (08:48)
[2025-06-21] MEDS: ASPIRIN 81 MG ENTERIC TABLET PO (08:49)
[2025-06-21] MEDS: DOCUSATE SODIUM 100 MG CAPSULE PO ×2 (08:49→17:28)
[2025-06-21] MEDS: FUROSEMIDE 40 MG TABLET PO (08:49)
[2025-06-21] MEDS: ACYCLOVIR 400 MG TABLET PO ×3 (08:49→17:28)
[2025-06-21] MEDS: buPROPion HCL SR (12 HR) 150 MG TAB PO ×2 (08:49→21:32)
[2025-06-21] MEDS: ETHAMBUTOL HCL 400 MG TABLET 1200 MG PO (08:49)
[2025-06-21] MEDS: busPIRone HCL 2.5 MG TABLET PO ×2 (08:49→21:33)
[2025-06-21] MEDS: LOSARTAN POTASSIUM 25 MG TABLET PO (08:49)
[2025-06-21] MEDS: PANTOPRAZOLE 40 MG TABLET PO (08:49)
[2025-06-21] MEDS: TAMSULOSIN HCL 0.4 MG CAPSULE PO ×2 (08:49→21:32)
[2025-06-21] MEDS: SERTRALINE HCL 50 MG TABLET PO (08:49)
[2025-06-21] MEDS: MORPHINE SULFATE (*CRX) 30 MG TABCR PO (08:50)
[2025-06-21] MEDS: ATORVASTATIN 40 MG TABLET 80 MG PO (08:50)
[2025-06-21] MEDS: FENOFIBRATE NANOCRYSTALLIZED 145 MG TABLET PO (08:50)
[2025-06-21] MEDS: SULINDAC 200 MG 200 EACH PO ×2 (08:51→17:28)
[2025-06-21] MEDS: RIFABUTIN 150 MG 300 EACH PO (08:51)
--- NOTE | 2025-06-21 12:02 | P.PNIM_ITS ---
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: Qualifiers: Heart failure chronicity: acute on chronic Qualified Code(s): I50.43 - Acute on chronic combined systolic (congestive) and diastolic (congestive) heart failure Code(s): I50.40 - Unspecified combined systolic (congestive) and diastolic (congestive) heart failure Status: Acute (3) COPD exacerbation: Code(s): J44.1 - Chronic obstructive pulmonary disease with (acute) exacerbation Status: Acute Plan (1) SNEHA (mycobacterium avium-intracellulare): Code(s): A31.0 - Pulmonary mycobacterial infection Status: Acute Assessment and Plan: Continue home antibiotic: ethambutol hcl, rifabutin, acyclovir, Completed levaquin DuoNeb Dr Vigil evaluated and canceled transfer to [facility] above care Continue Ethambutol, acyclovir, and Rifabutin. * To be followed by [facility]ious Disease at [facility] [place]. * Will need respiratory therapy at discharge. * Continue supplemental oxygen.(2) Combined systolic and diastolic congestive heart failure: Acute on chronic combined systolic (congestive) and diastolic (congestive) heart failure Code(s): I50.40 - Unspecified combined systolic (congestive) and diastolic (congestive) heart failure Status: Acute Assessment and Plan: Acute on chronic received 40 of IV Lasix daily Daily weight Transition to Lasix 40 mg po daily from IV. * Pt appears euvolemic. * Creatinine stable. * Chronic pulmonary aspergillosis: Code(s): B44.1 - Other pulmonary aspergillosis Status: Acute Assessment and Plan: See plan above * Chronic hypoxic respiratory failure, on home oxygen therapy: Code(s): J96.11 - Chronic respiratory failure with hypoxia; Z99.81 - Dependence on supplemental oxygen Status: Acute Assessment and Plan: Acute on chronic, on 4 L O2 at home found to be 70% on pulse ox by EMS See plan above Solu-Medrol x1 Prednisone Continue Prednisone, which may be the increase in pt's WBC's. (5) Code(s): D72.829 - Elevated white blood cell count, unspecified Status: Acute Assessment and Plan: 06/20/25: * Increase in WBC's to 16.1 from 5.0 yesterday. * Etiology new infection vs. Steroids * CXR negative for new or worsening, UA negative * Trend values HTN (hypertension): Qualifiers: Hypertension type: primary hypertension Qualified Code(s): I10 - Essential (primary) hypertension Code(s): I10 - Essential (primary) hypertension Status: Chronic hyperlipidemia * Continue Atorvastatin (8) Chronic anemia: Code(s): D64.9 - Anemia, unspecified Status: Acute Assessment and Plan: At baseline No signs of acute bleeding CBC in a.m. elevated troponin demand ischemia due to respiratory failure infection Continue nitro, metoprolol, losartan, and aspirin Subjective Date/time seen: 06/21/25 12:02 Interval history: I saw exam patient today, patient still has cough and shortness breath with exertion. Patient feels better today. Patient is afebrile, blood pressure stable Labs reviewed Objective Data Vital Signs Vital Signs: Vital Signs - 24 hr 06/20/25 14:00 06/20/25 15:32 06/20/25 15:32 Temperature 96.4 F L Pulse Rate 92 78 78 Respiratory Rate 16 20 20 Blood Pressure 92/41 L Pulse Oximetry 96 96 Oxygen Delivery Nasal Cannula Oxygen Flow Rate 4 06/20/25 15:50 06/20/25 20:00 06/20/25 20:48 Temperature Pulse Rate 85 88 Respiratory Rate 20 Blood Pressure Pulse Oximetry 97 Oxygen Delivery Nasal Cannula Oxygen Flow Rate 4 06/20/25 21:13 06/20/25 21:15 06/20/25 21:15 Temperature 97.1 F L Pulse Rate 88 72 Respiratory Rate 17 20 Blood Pressure 100/50 L Pulse Oximetry 95 96 Oxygen Delivery Nasal Cannula Oxygen Flow Rate 4 06/20/25 21:28 06/21/25 01:55 06/21/25 05:30 Temperature 97.9 F Pulse Rate 77 73 76 Respiratory Rate 20 18 16 Blood Pressure 102/45 L Pulse Oximetry 92 Oxygen Delivery Oxygen Flow Rate 06/21/25 08:09 06/21/25 08:09 06/21/25 08:18 Temperature Pulse Rate 75 81 Respiratory Rate 18 18 Blood Pressure Pulse Oximetry 95 Oxygen Delivery Nasal Cannula Oxygen Flow Rate 4 06/21/25 08:38 Temperature Pulse Rate Respiratory Rate Blood Pressure Pulse Oximetry 96 Oxygen Delivery Nasal Cannula Oxygen Flow Rate 4 Intake/Output Intake/Output: Intake & Output 06/18/25 06/19/25 06/20/25 06/21/25 23:59 23:59 23:59 23:59 Intake Total 2210 920 720 837 Output Total 7182 310 6355 1178 Balance 1100 47 -206 -713 Meds/Results Medications: Active Medications Generic Name Dose Route Start Last Admin Trade Name Freq PRN Reason Stop Dose Admin Acetaminophen 650 mg 06/15/25 18:22 Acetaminophen 325 Mg Tablet PO Q4H PRN Mild Pain (1-3) or Fever Acetylcysteine 400 mg 06/17/25 20:00 06/21/25 08:06 Acetylcysteine 20% Inhal Soln 800 Mg/4 Ml Vial INHALATION 400 mg TIDRT GIOVANNY Administration Acyclovir 400 mg 06/16/25 21:00 06/21/25 08:49 Acyclovir 400 Mg Tablet PO 400 mg TID GIOVANNY Administration Albuterol/Ipratropium 3 ml 06/15/25 20:00 06/21/25 08:07 Ipratropium 0.5 Mg/Albuterol Sulfate 2.5 Mg Ampul.Neb 3 Ml INHALATION 3 ml Q6HRT GIOVANNY Administration Aspirin 81 mg 06/16/25 09:00 06/21/25 08:49 Aspirin 81 Mg Enteric Tablet PO 81 mg DAILY GIOVANNY Administration Atorvastatin Calcium 80 mg 06/16/25 09:00 06/21/25 08:50 Atorvastatin 40 Mg Tablet PO 80 mg DAILY GIOVANNY Administration Baclofen 10 mg 06/15/25 18:01 Baclofen 10 Mg Tablet PO Q12H PRN muscle spasm Benzonatate 200 mg 06/16/25 09:00 Benzonatate 100 Mg Capsule PO TID PRN Cough Bupropion HCl 150 mg 06/16/25 21:00 06/21/25 08:49 Bupropion Hcl Sr (12 Hr) 150 Mg Tab PO 150 mg Q12HR GIOVANNY Administration Buspirone HCl 2.5 mg 06/17/25 21:00 06/21/25 08:49 Buspirone Hcl 2.5 Mg Tablet PO 2.5 mg Q12HR GIOVANNY Administration Docusate Sodium 100 mg 06/16/25 09:00 06/21/25 08:49 Docusate Sodium 100 Mg Capsule PO 100 mg BID GIOVANNY Administration Enoxaparin Sodium 40 mg 06/16/25 09:00 06/21/25 08:48 Enoxaparin 40 Mg/0.4 Ml Syringe SUB-Q 40 mg DAILY GIOVANNY Administration Ethambutol HCl 1,200 mg 06/16/25 09:00 06/21/25 08:49 Ethambutol Hcl 400 Mg Tablet PO 1,200 mg DAILY GIOVANNY Administration Fenofibrate 145 mg 06/16/25 09:00 06/21/25 08:50 Fenofibrate Nanocrystallized 145 Mg Tablet PO 145 mg QAM GIOVANNY Administration Fluticasone/Umeclidinium/Vilanterol 1 puff 06/16/25 08:00 06/21/25 08:07 Fluticasone/Umeclidin/Vilanter 100-62.5-25 Mcg Ellipta INHALATION 1 puff DAILYRT GIOVANNY Administration Furosemide 40 mg 06/21/25 09:00 06/21/25 08:49 Furosemide 40 Mg Tablet PO 40 mg DAILY GIOVANNY Administration Hydroxyzine HCl 25 mg 06/17/25 19:54 Hydroxyzine Hcl 25 Mg Tablet PO QID PRN anxiety Lorazepam 0.5 mg 06/15/25 18:01 06/19/25 20:40 Lorazepam (*Crx) 0.5 Mg Tablet PO 0.5 mg BID PRN Administration anxiety Losartan Potassium 25 mg 06/16/25 09:00 06/21/25 08:49 Losartan Potassium 25 Mg Tablet PO 25 mg DAILY GIOVANNY Administration Metoprolol Succinate 50 mg 06/15/25 21:00 06/20/25 20:48 Metoprolol Succinate Ext Rel 50 Mg Tabcr PO 50 mg HS GIOVANNY Administration Morphine Sulfate 30 mg 06/16/25 09:00 06/21/25 08:50 Morphine Sulfate (*Crx) 30 Mg Tabcr PO 30 mg DAILY GIOVANNY Administration Nitroglycerin 0.4 mg 06/15/25 18:20 Nitroglycerin Sl 0.4 Mg Tablet SUBLINGUAL Q5M PRN chest pain Sulindac 200 Mg 200 mg 06/16/25 17:00 06/21/25 08:51 Tablet Home Med PO 07/16/25 16:59 200 mg BID GIOVANNY Administration Rifabutin 150 Mg 300 mg 06/18/25 09:00 06/21/25 08:51 Capsule Home Med PO 07/18/25 08:59 300 mg DAILY GIOVANNY Administration Pantoprazole Sodium 40 mg 06/16/25 09:00 06/21/25 08:49 Pantoprazole 40 Mg Tablet PO 40 mg QAM GIOVANNY Administration Polyethylene Glycol 17 gm 06/20/25 09:00 06/21/25 08:48 Polyethylene Glycol 3350 17 Gm Powd.Pack PO 17 gm QAM GIOVANNY Administration Prednisone 40 mg 06/16/25 08:00 06/21/25 08:49 Prednisone 20 Mg Tablet PO 40 mg DAILY@0800 GIOVANNY Administration Sertraline HCl 50 mg 06/16/25 09:00 06/21/25 08:49 Sertraline Hcl 50 Mg Tablet PO 50 mg DAILY GIOVANNY Administration Sodium Chloride 5 ml 06/18/25 20:00 06/21/25 08:05 Sodium Chlor 3% 15 Ml Neb (Respiratory Therapy) INHALATION 5 ml TIDRT GIOVANNY Administration Tamsulosin HCl 0.4 mg 06/16/25 09:00 06/21/25 08:49 Tamsulosin Hcl 0.4 Mg Capsule PO 0.4 mg DAILY GIOVANNY Administration Tobramycin/Dexamethasone 1 drop 06/15/25 21:00 06/21/25 08:48 Tobramycin/Dexamethasone Op 2.5 Ml Btl EACH EYE 1 drop QID GIOVANNY Administration Trazodone HCl 100 mg 06/15/25 21:00 06/20/25 20:50 Trazodone Hcl 50 Mg Tablet PO 100 mg HS GIOVANNY Administration Radiology Results: ITS Impressions Chest X-Ray 06/20/25 10:11 IMPRESSION: Redemonstration of volume loss within the right hemithorax with adjacent compre ssive atelectasis and a small right-sided pleural effusion. Labs Labs: Laboratory Results - last 24 hr 06/21/25 06:21 WBC 10.0 RBC 2.90 L Hgb 8.1 L Hct 26.7 L MCV 92.1 MCH 27.9 MCHC 30.3 L RDW 15.3 H Plt Count 173 MPV 10.2 Immature Gran % (Auto) 1.4 H Neut % (Auto) 84.6 H Lymph % (Auto) 7.5 L [place] % (Auto) 6.1 Eos % (Auto) 0.2 Baso % (Auto) 0.2 Lymph # (Auto) 0.75 L [place] # (Auto) 0.6 Eos # (Auto) 0.0 Baso # (Auto) 0.0 Abs Immat Gran (auto) 0.14 H Absolute Neuts (auto) 8.5 H Absolute Nucleated RBC 0.000 Nucleated RBC % 0.0 Sodium 133 L Potassium 4.2 Chloride 98 Carbon Dioxide 29 Anion Gap 6 BUN 37 H D Creatinine 1.33 H Estim Creat Clear Calc 42 Estimated GFR 52 L Glucose 92 Calcium 8.6 Magnesium 2.0 Total Bilirubin 0.3 AST 29 ALT 16 Alkaline Phosphatase 96 Total Protein 5.9 L Albumin 2.9 L
[2025-06-21] MEDS: METOPROLOL SUCCINATE EXT REL 50 MG TABCR PO (21:32)
[2025-06-21] MEDS: ACETAMINOPHEN 325 MG TABLET 650 MG PO (21:33)
[2025-06-22] VITALS (14 sets, daily range): BP systolic 107–131; BP diastolic 43–68; PULSE 63–77; RESP 14–20; TEMP 36–36.4; O2SAT 94–98
[2025-06-22] MEDS: IPRATROPIUM 0.5 MG/ALBUTEROL SULFATE 2.5 MG AMPUL.NEB 3 ML INHALATION ×4 (01:24→19:56)
[2025-06-22] MEDS: ACETYLCYSTEINE 20% INHAL SOLN 800 MG/4 ML VIAL 400 MG INHALATION ×3 (07:54→19:56)
[2025-06-22] MEDS: SODIUM CHLOR 3% 15 ML NEB (RESPIRATORY THERAPY) 5 ML INHALATION ×3 (07:59→19:57)
[2025-06-22] MEDS: FLUTICASONE/UMECLIDIN/VILANTER 100-62.5-25 MCG ELLIPTA 1 PUFF INHALATION (08:21)
[2025-06-22] MEDS: LOSARTAN POTASSIUM 25 MG TABLET PO (09:59)
[2025-06-22] MEDS: ETHAMBUTOL HCL 400 MG TABLET 1200 MG PO (09:59)
[2025-06-22] MEDS: PANTOPRAZOLE 40 MG TABLET PO (09:59)
[2025-06-22] MEDS: MORPHINE SULFATE (*CRX) 30 MG TABCR PO (09:59)
[2025-06-22] MEDS: buPROPion HCL SR (12 HR) 150 MG TAB PO ×2 (09:59→20:56)
[2025-06-22] MEDS: DOCUSATE SODIUM 100 MG CAPSULE PO ×2 (09:59→17:11)
[2025-06-22] MEDS: busPIRone HCL 2.5 MG TABLET PO ×2 (09:59→20:57)
[2025-06-22] MEDS: FENOFIBRATE NANOCRYSTALLIZED 145 MG TABLET PO (09:59)
[2025-06-22] MEDS: ASPIRIN 81 MG ENTERIC TABLET PO (09:59)
[2025-06-22] MEDS: TAMSULOSIN HCL 0.4 MG CAPSULE PO ×2 (09:59→20:56)
[2025-06-22] MEDS: ATORVASTATIN 40 MG TABLET 80 MG PO (10:00)
[2025-06-22] MEDS: SERTRALINE HCL 50 MG TABLET PO (10:00)
[2025-06-22] MEDS: ACYCLOVIR 400 MG TABLET PO ×3 (10:00→17:11)
[2025-06-22] MEDS: FUROSEMIDE 40 MG TABLET PO (10:00)
[2025-06-22] MEDS: SULINDAC 200 MG 200 EACH PO ×2 (10:01→17:11)
[2025-06-22] MEDS: ENOXAPARIN 40 MG/0.4 ML SYRINGE SUB-Q (10:02)
[2025-06-22] MEDS: TOBRAMYCIN/DEXAMETHASONE OP 2.5 ML BTL 1 DROP EACH EYE ×4 (10:02→20:57)
--- NOTE | 2025-06-22 13:49 | PCNFU ---
Nutrition Follow-Up Complete: Severe protein calorie malnutrition related to inadequate energy intake as evidenced by poor po intake for greater than 1 month, a significant weight loss of -8.5% x 2 months, and NFPE findings of severe subcutaneous fat loss (cheeks) and severe muscle wasting (confucianism, clavicles). PO intake 75% - progressing with goal. continue with same goal Goal: Pt current nutrition is Regular diet, Ensure +HP BID (350 kcal, 20 g protein). Nutrition recommendation: No new recommendations. Continue current nutrition care plan and orders. Agree with orders Last recorded weight is 72.8 kg. Bowel Motility: No BMs are charted Labs Reviewed: Hgb 8.1, Hct 26.7, Alb 2.9, Na 133, BUN 37, Cre 1.33 Meds Noted: Protonix, colace, prednisone, lasix, miralax Skin: No skin issues Additional Notes: Eating adequately 50-100%, including some Ensure. Continue to monitor. Monitor intake, wt, labs. Follow up in 5 days.
--- NOTE | 2025-06-22 15:53 | P.PNIM_ITS ---
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: Qualifiers: Heart failure chronicity: acute on chronic Qualified Code(s): I50.43 - Acute on chronic combined systolic (congestive) and diastolic (congestive) heart failure Code(s): I50.40 - Unspecified combined systolic (congestive) and diastolic (congestive) heart failure Status: Acute (3) COPD exacerbation: Code(s): J44.1 - Chronic obstructive pulmonary disease with (acute) exacerbation Status: Acute Plan (1) SNEHA (mycobacterium avium-intracellulare): Code(s): A31.0 - Pulmonary mycobacterial infection Status: Acute Assessment and Plan: Continue home antibiotic: ethambutol hcl, rifabutin, acyclovir, Completed levaquin [facility] Vigil evaluated and canceled transfer to [facility] Received Ethambutol, acyclovir, and Rifabutin. 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 Acute on chronic combined systolic (congestive) and diastolic (congestive) heart failure Code(s): I50.40 - Unspecified combined systolic (congestive) and diastolic (congestive) heart failure Status: Acute Assessment and Plan: Acute on chronic received 40 of IV Lasix daily Daily weight Transition to Lasix 40 mg po daily from IV. Compensated * Chronic pulmonary aspergillosis: Code(s): B44.1 - Other pulmonary aspergillosis Status: Acute Assessment and Plan: See plan above * Chronic hypoxic respiratory failure, on home oxygen therapy: Code(s): J96.11 - Chronic respiratory failure with hypoxia; Z99.81 - Dependence on supplemental oxygen Status: Acute Assessment and Plan: Acute on chronic, on 4 L O2 at home found to be 70% on pulse ox by EMS See plan above Solu-Medrol x1 Prednisone Continue Prednisone, which may be the increase in pt's WBC's. (5) Code(s): D72.829 - Elevated white blood cell count, unspecified Status: Acute Assessment and Plan: 06/20/25: * Increase in WBC's to 16.1 from 5.0 yesterday. * Etiology new infection vs. Steroids * CXR negative for new or worsening, UA negative * Trend values HTN (hypertension): Qualifiers: Hypertension type: primary hypertension Qualified Code(s): I10 - Essential (primary) hypertension Code(s): I10 - Essential (primary) hypertension Status: Chronic hyperlipidemia * Continue Atorvastatin (8) Chronic anemia: Code(s): D64.9 - Anemia, unspecified Status: Acute Assessment and Plan: At baseline No signs of acute bleeding CBC in a.m. elevated troponin demand ischemia due to respiratory failure infection Continue nitro, metoprolol, losartan, and aspirin Patient is waiting for placement Subjective Date/time seen: 06/22/25 15:53 Interval history: I saw exam patient today, Patient feels better today. Patient is afebrile, blood pressure stable Labs reviewed exercise tolerance creased Exam Narrative: General: well appearing, appears stated age. HEENT: normocephalic, atraumatic. MMM, patent oropharynx without erythema, edema or exudate. Neck supple without JVD, lymphadenopathy, or bruit. Supple AROM. Respiratory: Coarse lung sounds in all short. Cardiovascular: RRR, S1 and S2 present. No S3, S4, m,r,g,h Abdomen: NT, Soft, BS in all 4 quads. Extremities: No cyanosis, clubbing, or edema present. Pulses are palpable 2/2. Active ROM to all four extremities. Neuro: Alert and orientated x 4. PERRLA. Cranial nerves 2-12 intact without focal deficit. Skin: Warm, dry, and intact, without rash, erythema, or lesion. Psych: Normal affect Objective Data Vital Signs Vital Signs: Vital Signs - 24 hr 06/21/25 19:51 06/21/25 19:55 06/21/25 20:00 Temperature Pulse Rate 75 75 Respiratory Rate 20 20 Blood Pressure Pulse Oximetry 95 94 Oxygen Delivery Nasal Cannula Nasal Cannula Oxygen Flow Rate 4 4 Fraction of Inspired Oxygen 36 06/21/25 20:13 06/21/25 20:53 06/21/25 21:32 Temperature 96.6 F L Pulse Rate 76 78 80 Respiratory Rate 20 17 Blood Pressure 102/58 L Pulse Oximetry 95 Oxygen Delivery Oxygen Flow Rate Fraction of Inspired Oxygen 06/22/25 01:24 06/22/25 05:07 06/22/25 08:00 Temperature 97.6 F Pulse Rate 68 70 Respiratory Rate 20 15 Blood Pressure 131/68 Pulse Oximetry 94 95 Oxygen Delivery Nasal Cannula Oxygen Flow Rate 4 Fraction of Inspired Oxygen 06/22/25 08:00 06/22/25 08:01 06/22/25 08:17 Temperature Pulse Rate 77 74 77 Respiratory Rate 18 18 18 Blood Pressure Pulse Oximetry 95 Oxygen Delivery Nasal Cannula Oxygen Flow Rate 4 Fraction of Inspired Oxygen 36 06/22/25 13:55 06/22/25 14:00 06/22/25 14:10 Temperature 96.8 F L Pulse Rate 72 63 75 Respiratory Rate 18 16 18 Blood Pressure 107/50 L Pulse Oximetry 98 Oxygen Delivery Oxygen Flow Rate Fraction of Inspired Oxygen Intake/Output Intake/Output: Intake & Output 06/19/25 06/20/25 06/21/25 06/22/25 23:59 23:59 23:59 23:59 Intake Total 108 517 2256 720 Output Total 900 1350 1375 1900 Balance 20 -629 302 1180 Meds/Results Medications: Active Medications Generic Name Dose Route Start Last Admin Trade Name Freq PRN Reason Stop Dose Admin Acetaminophen 650 mg 06/15/25 18:22 06/21/25 21:33 Acetaminophen 325 Mg Tablet PO 650 mg Q4H PRN Administration Mild Pain (1-3) or Fever Acetylcysteine 400 mg 06/17/25 20:00 06/22/25 15:08 Acetylcysteine 20% Inhal Soln 800 Mg/4 Ml Vial INHALATION 400 mg TIDRT GIOVANNY Administration Acyclovir 400 mg 06/16/25 21:00 06/22/25 13:00 Acyclovir 400 Mg Tablet PO 400 mg TID GIOVANNY Administration Albuterol/Ipratropium 3 ml 06/15/25 20:00 06/22/25 15:09 Ipratropium 0.5 Mg/Albuterol Sulfate 2.5 Mg Ampul.Neb 3 Ml INHALATION 3 ml Q6HRT GIOVANNY Administration Aspirin 81 mg 06/16/25 09:00 06/22/25 09:59 Aspirin 81 Mg Enteric Tablet PO 81 mg DAILY GIOVANNY Administration Atorvastatin Calcium 80 mg 06/16/25 09:00 06/22/25 10:00 Atorvastatin 40 Mg Tablet PO 80 mg DAILY GIOVANNY Administration Baclofen 10 mg 06/15/25 18:01 Baclofen 10 Mg Tablet PO Q12H PRN muscle spasm Benzonatate 200 mg 06/16/25 09:00 Benzonatate 100 Mg Capsule PO TID PRN Cough Bupropion HCl 150 mg 06/16/25 21:00 06/22/25 09:59 Bupropion Hcl Sr (12 Hr) 150 Mg Tab PO 150 mg Q12HR GIOVANNY Administration Buspirone HCl 2.5 mg 06/17/25 21:00 06/22/25 09:59 Buspirone Hcl 2.5 Mg Tablet PO 2.5 mg Q12HR GIOVANNY Administration Docusate Sodium 100 mg 06/16/25 09:00 06/22/25 09:59 Docusate Sodium 100 Mg Capsule PO 100 mg BID GIOVANNY Administration Enoxaparin Sodium 40 mg 06/16/25 09:00 06/22/25 10:02 Enoxaparin 40 Mg/0.4 Ml Syringe SUB-Q 40 mg DAILY GIOVANNY Administration Ethambutol HCl 1,200 mg 06/16/25 09:00 06/22/25 09:59 Ethambutol Hcl 400 Mg Tablet PO 1,200 mg DAILY GIOVANNY Administration Fenofibrate 145 mg 06/16/25 09:00 06/22/25 09:59 Fenofibrate Nanocrystallized 145 Mg Tablet PO 145 mg QAM GIOVANNY Administration Fluticasone/Umeclidinium/Vilanterol 1 puff 06/16/25 08:00 06/22/25 08:21 Fluticasone/Umeclidin/Vilanter 100-62.5-25 Mcg Ellipta INHALATION 1 puff DAILYRT GIOVANNY Administration Furosemide 40 mg 06/21/25 09:00 06/22/25 10:00 Furosemide 40 Mg Tablet PO 40 mg DAILY GIOVANNY Administration Hydroxyzine HCl 25 mg 06/17/25 19:54 Hydroxyzine Hcl 25 Mg Tablet PO QID PRN anxiety Lorazepam 0.5 mg 06/15/25 18:01 06/19/25 20:40 Lorazepam (*Crx) 0.5 Mg Tablet PO 0.5 mg BID PRN Administration anxiety Losartan Potassium 25 mg 06/16/25 09:00 06/22/25 09:59 Losartan Potassium 25 Mg Tablet PO 25 mg DAILY GIOVANNY Administration Metoprolol Succinate 50 mg 06/15/25 21:00 06/21/25 21:32 Metoprolol Succinate Ext Rel 50 Mg Tabcr PO 50 mg HS GIOVANNY Administration Morphine Sulfate 30 mg 06/16/25 09:00 06/22/25 09:59 Morphine Sulfate (*Crx) 30 Mg Tabcr PO 30 mg DAILY GIOVANNY Administration Nitroglycerin 0.4 mg 06/15/25 18:20 Nitroglycerin Sl 0.4 Mg Tablet SUBLINGUAL Q5M PRN chest pain Sulindac 200 Mg 200 mg 06/16/25 17:00 06/22/25 10:01 Tablet Home Med PO 07/16/25 16:59 200 mg BID GIOVANNY Administration Rifabutin 150 Mg 300 mg 06/18/25 09:00 06/22/25 10:02 Capsule Home Med PO 07/18/25 08:59 Not Given DAILY GIOVANNY Pantoprazole Sodium 40 mg 06/16/25 09:00 06/22/25 09:59 Pantoprazole 40 Mg Tablet PO 40 mg QAM GIOVANNY Administration Polyethylene Glycol 17 gm 06/20/25 09:00 06/22/25 09:59 Polyethylene Glycol 3350 17 Gm Powd.Pack PO 17 gm QAM GIOVANNY Administration Prednisone 40 mg 06/16/25 08:00 06/22/25 09:59 Prednisone 20 Mg Tablet PO 40 mg DAILY@0800 GIOVANNY Administration Sertraline HCl 50 mg 06/16/25 09:00 06/22/25 10:00 Sertraline Hcl 50 Mg Tablet PO 50 mg DAILY GIOVANNY Administration Sodium Chloride 5 ml 06/18/25 20:00 06/22/25 15:08 Sodium Chlor 3% 15 Ml Neb (Respiratory Therapy) INHALATION 5 ml TIDRT GIOVANNY Administration Tamsulosin HCl 0.4 mg 06/21/25 21:00 06/22/25 09:59 Tamsulosin Hcl 0.4 Mg Capsule PO 0.4 mg Q12HR GIOVANNY Administration Tobramycin/Dexamethasone 1 drop 06/15/25 21:00 06/22/25 13:00 Tobramycin/Dexamethasone Op 2.5 Ml Btl EACH EYE 1 drop QID GIOVANNY Administration Trazodone HCl 100 mg 06/15/25 21:00 06/21/25 21:32 Trazodone Hcl 50 Mg Tablet PO 100 mg HS GIOVANNY Administration Radiology Results: ITS Impressions Chest X-Ray 06/20/25 10:11 IMPRESSION: Redemonstration of volume loss within the right hemithorax with adjacent compressive atelectasis and a small right-sided pleural effusion.
--- NOTE | 2025-06-22 18:49 | P.PNPL_ITS ---
Progress Note: A&P Assessment and Plan (1) Chronic obstructive pulmonary disease: Code(s): J44.9 - Chronic obstructive pulmonary disease, unspecified Status: Acute Assessment and Plan: Gold grade 2 group E COPD; CT scan with panlobular emphysema. Testing; 04/28/2025: Home O2 assessment: Final recommendation was 2 L at rest and 5 L with activity. Home management is Bevespi (glycopyrrolate-formoterol, NO ICS) hx of Pseudomonas aeruginosa on 10/10/2021 and 04/26/2025; Alcaligenes xylosoxidans sensitive to meropenem and Septra, intermediate to Zosyn, resistant to ceftaz, levofloxacin and imipenem. * alpha 1 anti-trypsin genotype MM, [id number] apical predominant centrilobular and paraseptal emphysema on his CT scan from 10/11/2021 * 12/16/2023 PFT; mild obstruction with FEV1 68%, ratio 61%. No bronchodilator response, hyperinflation, severely decreased DLCO the remains mildly decreased when adjusted for alveolar volume. Compared to 01/01/2022 had been a significant decrease in the FVC, FEV1, total lung capacity, functional residual capacity and diffusing capacity. PMH: COVID pneumonia on 09/10/2021, 11/13/2023 treated with Paxlovid, rebound symptoms treated with clarithromycin and doxycycline. Recurrent pneumonias; 02/25/2024 for pneumonia with sputum showing Haemophilus treated with steroids. 10/04/2024: White blood cell count 11.1 eosinophils 3.2%=355/uL. Eosinophils elevated. (2) SNEHA (mycobacterium avium-intracellulare): Code(s): A31.0 - Pulmonary mycobacterial infection Status: Acute Assessment and Plan: SNEHA in sputum, multiple pulmonary infections requiring antibiotics on many date during 2023 and 2024. He saw Kenisha OSWALD on May 02 while inpatient at [facility], was started on current regimen without azithromycin due to hearing loss; he is on rifabutin 300 mg a day, ethambutol 1200 mg a day. SNEHA always requires 3 medications, so he will need something to replace azithromycin. Ina with the ID team called today, said that he needs ot be on azithromycin 250 mg a day decreased from 500 mg; this is lower due to the dose related hearing loss. He will continue rifabutin 300 mg and EMB 1200 mg. Follow up appointment at [facility] ID June 27. I restarted azithromycin 250 on June 22. (3) History of tobacco use: Code(s): Z87.891 - Personal history of nicotine dependence Status: Acute Assessment and Plan: History of 60-80 pack years, none since 2018. (4) Hearing loss: Qualifiers: Hearing loss type: unspecified Laterality: unspecified laterality Qualified Code(s): H91.90 - Unspecified hearing loss, unspecified ear Code(s): H91.90 - Unspecified hearing loss, unspecified ear Status: Acute Assessment and Plan: Sudden noticeable loss of hearing particularly in the left ear over the last week, moderately improved with some fluctuation over the last few days since stopping azithromycin 500 mg several days. The right ear has been not functioning well for several years but the left ear suddenly has worsen. He is on medicines for SNEHA for the last 6 weeks. plan: Restart azithromycin 250 mg a day. June 22. He will need outpatient audiology testing. Plan plan: 1) Restart azithromycin 250 mg a day, lower dose, now that he has completed Levaquin. This recommendation came from his ID team at [facility]. Hearing is better compared to admission. We stopped the azithromycin 500 mg. He has an appt with his ID doctors Jun 27. He needs hearing testing as an out patient. 2) Continue BuSpar low dose for anxiety. 3) The Lucia in the sputum is not a pathogen that needs treatment. 4) His son is trying to arrange for the Pt to move into [facility] for more support in the daytime, access to therapy, companionship, meals. The patient would still have to perform many tasks on his own, but he would not be alone all day. The pt is worried if he will be able to walk to the dining page. He needs to continue to work with therapy while he is here. He does not always give the best effort. 5) Continue deep breathing, use his PAP valve 10 exhales t.i.d with 3% saline 2 ml, Mucomyst 20% t.i.d, albuterol neb t.i.d. Continue valve after discharge. Encourage coughing and expectoration. He has none of this going on at home right now. Today, June 22, I listed to his chest, lots of rhonchi, had him do 10 exhalations and chest improved. He coughs sputum after doing this. He will have to do this even when nobody is watching and coaching him. This is a central aspect of his self care, and he needs to do this 3-4 times a day. 6) He needs nebulized bronchodilator for his machine at discharge. He reported that he does not have any albuterol currently however he does have a nebulizer. Add albuterol to his home medications. 7) Today I stopped his hydroxyzine as this has a severe interaction with azithromycin. I restarted azithromycin 250 mg, lower dose, for SNEHA treatment. I stopped his Trelegy as this has an inhaled corticosteroid, not recommended for SNEHA patients. I started dual bronchodilator, Bevespi, which auto-substituted to Anoro, one puff a day. I stopped his prednisone. His saturation is 95-96% on 4 L, wean to 3 L. He is a candidate for a vibratory vest at home with bronchiectasis on his CT scan. HE needs to be aware that he must comply with using the vest. These are expensive, and only work when the patient makes effort to wear it. 8) He should go home on Bevespi, no inhaled steroid due to MAC. Home med list was incorrect, said that he was on Breztri. Subjective Date/time seen: 06/22/25 18:49 Interval history: 06/17/2025; new consult; Russell Morse is an 80-year-old man with SNEHA infection, COPD, returns to the ER with shortness of breath and hypoxia. He was recently admitted on 05/30/2025 for same conditions, was transferred to [facility] from 06/04 to 06/08, went home on Levaquin to complete 750 mg po on June 18. He was also on SNEHA treatment including azithromycin 500 mg/day, Rifabutin 300 mg/day, eth ambutol 1200 mg/ day. Brayand said that the patient went home but was very weak, could not even walk to the bathroom easily. He and his have been taking off work to care for him at home because he now cannot do almost any self care. He cannot get to the bathroom by himself. With walking to the bathroom on his usual 4 L his saturation is dropping to 79-82%. He can not get to the kitchen by himself. He was supposed to start outpatient therapy this week but was readmitted quickly so this did not happen. Marco tells me that his father had a recent significant loss of hearing in the left ear. He has had hearing loss in the right ear for years. His CXR June 15 is worse compared to his May 30 CXR. He has increased infiltrate and consolidation in the right base. 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 Family hx: Brothers had COPD 8 years ago; pt, lives with son Marco and his , is alone in the day; sometimes daughter Sadia comes over, 17 hours a week, O2: has been on 2-3 years, wanted to be on it, was sneaking it from his who had severe lung disease. June 19, 2025; follow up; Hearing better since the azithromycin was stopped. He is using the vibratory vest and Cornet valve. I increased the resistance on the Cornet to 3rd level. He says that he has one like it at home, does not use it. He is coughing small amounts of sputum. On nasal cannula 4 L, saturation is 93%. This is acceptable oxygenation. He has required O2 at 4 L during a 2020 admission. I spoke with his son about the PT/OT note. The patient was evaluated and probably is not going to meet criteria to get into rehab at discharge. It is possible that when the patient is supported in the hospital, he puts forth a lot of effort, has ability to walk distances and perform tasks that he will not do at home. His daughter is a paid caregiver for him, and he might not want the challenge of exercising at home. I told his son that the more you move, the farther away from the grave you stay and his dad has to want to do these activities for himself, including pulmonary hygiene, nebulized treatments, mucolytics, exercise, and keeping a schedule. He needs a routine. Gram stain today showed few epithelial cells, many Gram negative rods. June 21, 2025; follow up; I spoke with Ina from the ID clinic; she collaborated with Dr Angie santos robbins plan for a lower dose of azithromycin, 250 mg a day. His hearing loss was likely dose related, and continuing azithromycin at a lower dose is the best option.The patient says that his hearing overall if better, still fluctuates some. He has an appt with the ID clinic Jun 27. He feels better overall, still wants to go to rehab at discharge, does not understand why he cannot do this. I explained that his physical capability is better than he appreciates, and he does not need to have rehab in a facility. He is totally able to have exercise and pulmonary hygiene at home. He will need to work with his daughter, Sadia, to perform the exercises and use his Cornet valve at home to maintain improved airway clearance and to build strength. Like home schooling, he needs to have a schedule, a plan, and needs to track his progress. If he does not participate, SNEHA can worsen, and this is a fatal disease. wbc today is 10k. His sputum from 06/18/25 grew Lucia, not a pathogen, but a message that he has been on many antibiotics. 06/22/2025: follow up; He is sitting up in bed comfortably, on his cellphone. Sat is 96% on 4 L/min, O2 can be weaned. His oxygenation is improving on the same amount of oxygen so this is overall a good response to therapy. He had physical therapy today. The patient tells me he is very worried about going to a place like [facility] because he is not sure that he will be able to walk to the dining page. He also tells me that he is not really getting the therapy that he needs here. I looked in the chart and saw that he has work with OT and PT regularly. I do not know if he can not remember working with them or if he does not want to go to [facility], would prefer to go home where his daughter will do more things for him. During physical exam his chest had scattered rhonchi. I asked him to below on the Cornet valve 10 times and this helped move his secretions. He is able to expectorate mucus. I told him that he will have to blow into the Cornet 10 exhalations even when there is not somebody standing over him monitoring him. He is getting T id vibratory vest with 3% saline, Mucomyst and RT helping with deep breathing. He needs to be using the Cornet valve in between these treatments. 2024 admissions: * 05/30/2025 [facility] admission shortness of breath; transferred to [facility] 06/04 to 06/07; discharged on Levaquin to continue until June 18; continue SNEHA meds * 05/12/2025, ER visit, shortness of breath, home. * 04/25/25 -04/28/25; admitted [facility] respiratory distress, hypoxemia, transferred to [facility]; ID saw him 05/02/25; SNEHA; started Rx w azithromycin 500 mg/D, Rifabutin 300 mg/D, ethambutol 1200 mg/ day initial sputum with SNEHA was 12/16/2024 with AFB verified on 01/20/25 and grew SNEHA on 02/01/25.?Sensitivities 03/28/25. QuantiFERON gold was negative on 01/24/25. ORGANISM: MYCOBACTERIUM AVIUM COMPLEX AMIKACIN: 16 S mcg/mL AMIKACIN (LIPOSOMAL, INHALED): 16 S mcg/mL CIPROFLOXACIN: >8 mcg/mL CLARITHROMYCIN: 2 S mcg/mL CLOFAZIMINE: 0.25 mcg/mL DOXYCYCLINE: >8 mcg/mL LINEZOLID: 16 I mcg/mL MINOCYCLINE: >8 mcg/mL MOXIFLOXACIN: 4 R mcg/mL RIFABUTIN: 1 mcg/mL RIFAMPIN: >4 mcg/mL STREPTOMYCIN: >32 * This is a corrected result. * A prior result that was reported as final has been changed. 1. Mycobacterium avium complex M.I.C. RX --------- --- Rifampin AFB >4 S Streptomycin AFB R Amikacin AFB 16 S Moxifloxacin AFB R 03/02/2025 patient with increased phlegm production and treated for bronchitis with Septra DS 2 tablets twice a day x 7 days. PMH: CHF with reduced ejection fraction, CKD stage 3, COPD, NSTEMI, polio as a child; recent SNEHA pneumonia DATA * 06/15/2025; CXR; IMPRESSION: Worsening bibasilar airspace disease, right greater than left. This may be the result of pulmonary edema versus pneumonia in appropriate clinical settings. Clinical correlation is recommended. Short-term follow-up chest radiograph is recommended after appropriate clinical therapy to document resolution. May 30, 2025 ; CXR: Small right pleural effusion present. There is worsening hazy and interstitial disease in the right lung base and right midlung. Possible minimal haziness left lung base. Cardiomediastinal silhouette is stable. Bones and soft tissues are unremarkable. Impression: Probable mild pulmonary edema, worse in the right lung than left, versus possibly pneumonia. Correlate clinically. Small right pleural effusion. May 30, 2025 Below is information from prior admissions 04/26/2025: This is a new pulmonary consult for COPD and MAC. 80-year-old with a history of coronary artery disease status post non ST elevation CT August of 2019, ischemic cardiomyopathy, hypertension, hyperlipidemia, Gold grade 2 group B COPD on home oxygen 7 L at rest, with activity and with sleep and MAC lung disease. Regarding his COPD, patient with 60 pack year tobacco use quit in 2019, alpha 1 anti trypsin genotype MM, [id number] apical predominant centrilobular and paraseptal emphysema on his CT scan from 10/11/2021. Of note he has had COVID pneumonia on 09/10/2021 and Pseudomonas aeruginosa on 10/10/2021, and 04/26/2025. His PFTs from 12/16/2023 show mild obstruction with FEV1 68%, ratio 61%. No bronchodilator response, hyperinflation, severely decreased DLCO the remains mildly decreased when adjusted for alveolar volume. Compared to 01/01/2022 had been a significant decrease in the FVC, FEV1, total lung capacity, functional residual capacity and diffusing capacity. When admitted for pneumonia had an ABG on 02/25/2024 on 3 L nasal cannula 7.44/36/67. 10/04/2024: ABG on 2 L 7.43/41/75. 10/04/2024: White blood cell count 11.1 eosinophils 3.2%=355/uL. 04/09/2024 white blood cell count 11.1, eosinophils 0.4%=44/uL. Tested positive for COVID 11/13/2023 treated with Paxlovid, rebound symptoms treated with clarithromycin and doxycycline. Hospitalize 02/25/2024 for pneumonia with sputum showing Haemophilus treated with steroids. Hospitalized 04/10/24 to 04/12/24 for COPD exacerbation treated with prednisone and azithromycin. 09/08/2024 cold symptoms, treated with doxycycline and prednisone taper. 10/04/2024 ED visit for shortness of breath treated for fluid overload and COPD exacerbation with prednisone and Augmentin. 11/04 admitted to [facility] with congestive heart failure and pneumonia no evidence of COPD exacerbation. 11/20 admitted to [facility] for shortness of breath, fluid overload and possible pneumonia. 12/02/2024 through 12/06/2024 admitted to [facility] treated for pneumonia. sputum from 12/17/2024 grew out Alcaligenes xylosoxidans sensitive to meropenem and Septra, intermediate to Zosyn, resistant to ceftaz, levofloxacin and imipenem. 03/02/2025 patient with increased phlegm production and treated for bronchitis with Septra DS 2 tablets twice a day x 7 days. 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 Sputum on 12/15/2024 with AFB verified on 01/14/25 and grew SNEHA on 03/03/25. Sensitivities 03/20/25. On 03/20/25 patient referred to [facility] with appointment scheduled for 05/02/2025. Sputum on 12/16/2024 with AFB verified on 01/20/25 and grew SNEHA on 02/01/25. Sensitivities 03/28/25. QuantiFERON gold was negative on 01/24/25. Patient was treated for bronchitis on 03/02/2025 and improved with Septra. He was at his baseline which is dyspnea on exertion at 50-75 feet. He is using 7 L at rest, with saturations 95-97% at home. He is using 7 L with activity with saturations 92%. He is using 7 L at night. He typically has no daily fevers. He coughs phlegm 2 times a day which is described as lynn. Patient tells me he was at his baseline on 04/24/2020 5. On 04/25/2025 he developed a fever, increased cough, worsening dyspnea on exertion with the same amount of phlegm. Family reported some confusion. He was brought to the emergency department. 04/25/25 through 04/28/2025: admitted to [facility] for respiratory distress and hypoxemia. I spoke with the emergency room physician and requested that he be transferred to [facility] said he could be evaluated by an Infectious Disease team which we do not have at [facility]. Patient was referred to [facility] but no beds were available. In the meantime I recommended ceftriaxone, azithromycin and Septra. 04/26/25: a CT angiogram of the chest: I have compared this to CT scans from 11/20/2024 and 08/29/2024 and 02/25/2024. Current CT shows no PE, worsening consolidation and infiltrates in the right lower lobe compared to 11/20/2024 and 02/25/2024. Compared to CT scan on 02/25/2024 currently there are some areas of improved consolidation in the right lower lobe and some different areas with worsening consolidations in the right lower lobe. There is unchanged consolidation in the posterior left lower lobe with no change compared to 11/20/2024, 08/29/2024 and that have improved from 02/25/2024. Currently there are patchy consolidations in the right middle lobe some which were present on 11/20/2024 and some that are new. There were no infiltrates on 08/29/2024 in the right middle lobe. Modified barium swallow normal. Sputum has grown out normal chico. 04/28/2025: Home O2 assessment: Final recommendation was 2 L at rest and 5 L with activity. discharged on cefdinir x3 days, azithromycin x2 days, Septra 2 tablets p.o. b.i.d. x3 days, but of SP, guaifenesin 1200 b.i.d., Lasix 20 p.o. q.day, 4 L at night. After discharge respiratory pathogen panel was positive for human metapneumovirus. He was to be evaluated with [facility] ID on 05/02/2025. sputum for AFB collected on 04/27/2025 and 04/28/2025. 05/02/2025: Patient was seen at [facility] infectious Disease Clinic. We have contacted the clinic multiple times to get the note and have been unsuccessful. The patient tells me he has no idea what they said or recommended other than to follow-up in July. 05/12/2025: Seen in the emergency department for progressively worse shortness of breath, sputum production, BNP 3300, COVID, influenza, RSV RT PCR negative. ABG 7.39/40/88 on 2 L nasal cannula. prescribed Septra 1 tablet p.o. q.12 hours x7 days 05/22/2025: Patient called his PCP coughing all day with a little bit of phlegm raspy throat. levofloxacin 750 q.day prescribed X 10 days. 05/29/25: I spoke to the patient and usually is on 2 L at rest and 5 with activit y. I spoke to the patient today and he is on 4-5 L at rest with saturations 87%. His saturations with 5 L activity are in the mid 80s. He says he has not gained weight and is not swollen. He has finished 10 days of antibiotics through his PCP. I recommended the patient be evaluated in the emergency department and I recommended that he go to [facility] emergency department so that he could be evaluated by their Pulmonary team and their Infectious Disease team. He voiced understanding. 05/30/2025: Patient presented to [facility] ED with complaints of shortness of breath, exertional hypoxemia. He finished his outpatient Levaquin today. blood pressure 112/47, heart rate 79, saturation 96% on 4 L nasal cannula. Afebrile, creatinine 1.13. White blood cell count 11.8. I spoke to the emergency room and recommended he be transferred to [facility] to be evaluated by the Infectious Disease team and pulmonary team. Patient was accepted but no beds available. MRSA swab negative. Started on ceftriaxone, azithromycin and Septra. Patient given Lasix 40 IV x1. 05/31/2025: Currently the patient tells me he is breathing at his baseline at rest. He has worsening dyspnea on exertion. His cough and phlegm production or better than yesterday. He denies fever, chills, rigors, sweats. He has no hemoptysis. He has no worsening orthopnea, he has stable nocturia every 2 hours at home. When I enter the room he was on 5 L nasal cannula saturations 99%. I decreased him to 4 L nasal cannula saturations were 94%. I decreased him to 2 L nasal cannula saturations were 92%. DATA 04/26/2025: EXAMINATION: CTA chest PE protocol DATE: 04/26/2025 13:46 CDT INDICATION: Shortness of breath TECHNIQUE: Computed tomographic angiography (CTA) of the chest was performed with 100 mL Omnipaque-350 intravenous contrast. The dose-length product was 256.22 mGy-cm. Maximum intensity projection 3D-reconstructions of the aorta and other arteries were constructed by the technologist on a separate workstation. Automated exposure control and iterative reconstruction technique were employed. COMPARISON: Chest x-ray dated 04/25/[address] dated 11/20/2024. FINDINGS: Small right pleural effusion. Trace left pleural effusion. There is mediastinal lymphadenopathy. There is right hilar lymphadenopathy. There is atherosclerosis of the aorta and coronary arteries. Small hiatal hernia. Heart size normal. Pulmonary arteries are enlarged, consistent with pulmonary hypertension. Study is technically adequate without evidence for pulmonary em bolism. There is patchy bilateral airspace disease of the right upper, right middle and bilateral lower lobes, consistent with multifocal pneumonia. No endobronchial lesions. There is emphysema. No suspicious pulmonary nodules or masses. Mild thoracic spondylosis. No focal lytic or blastic lesions. IMPRESSION: 1. Multifocal airspace disease, consistent with pneumonia. 2: Bilateral pleural effusions, right greater than left. 3: Mediastinal lymphadenopathy, likely reactive. 4.: Pulmonary artery enlargement, consistent with pulmonary hypertension. 5: Emphysema. My read: I have compared this to CT scans from 11/20/2024 and 08/29/2024 and 02/25/2024. Current CT shows no PE, , Small right pleural effusion, worsening consolidation and infiltrates in the right lower lobe compared to 11/20/2024 and 02/25/2024. Compared to CT scan on 02/25/2024 currently there are some areas of improved consolidation in the right lower lobe and some different areas with worsening consolidations in the right lower lobe. There is unchanged consolidation in the posterior left lower lobe with no change compared to 11/20/2024, 08/29/2024 and that have improved from 02/25/2024. Currently there are patchy consolidations in the right middle lobe some which were present on 11/20/2024 and some that are new. There were no infiltrates on 08/29/2024 in the right middle lobe. 01/02/25: Modified barium swallow: Impression: Moderate dysphagia 11/20/24: EXAMINATION:. Recommendations: Regular but easy to chew diet with regular liquids but patient must use chin tuck posture with all eating and drinking to prevent pharyngeal residual and instances of laryngeal penetration and aspiration. He was referral to outpatient speech therapy. 12/14/24: CRP 3.6, ESR 134, CPK 43, Aspergillus Niger IgE 0.31, very low level. Aspergillus Niger antibody negative, Aspergillus flatus antibody negative. Aspergillus fumigatus antibody negative. Rheumatoid factor 12.9, anti CCP antibody less than 16. TERRA screen positive with an anti-DNA antibody 27 (positive greater than 10), Anca screen negative, hypersensitivity pneumonitis panel negative. 01/24/2025: QuantiFERON gold negative. IgE 691 normal less than 114, rheumatoid factor 12.9. IgG 693, IgM 90, IgA 212, all normal. Aldolase 5.0 CTA chest PE protocol INDICATION: Hypoxia elevated d-dimer COMPARISON: 08/29/2024 and 10/11/2021. FINDINGS: No filling defects within the main or proximal pulmonary arteries. The thoracic aorta is unremarkable. No aneurysmal dilatation or dissection. The heart is of normal size, without pericardial effusion. Panlobular emphysematous disease is identified. Patchy groundglass opacification detected bilaterally. Small bilateral pleural effusions with adjacent compressive atelectasis Multiple subcentimeter areas of decreased attenuation within the liver, unchanged dating back to 10/11/2021. IMPRESSION: No pulmonary embolus. No aneurysmal dilatation or dissection within the thoracic aorta. Small bilateral pleural effusions with adjacent compressive atelectasis. 08/16/2024: Overnight oximetry on 3 L nasal cannula. The report in the computer status overnight oximetry on room air but this is mislabeled as the test was performed on 3 L. Recording duration 8 hours and 39 minutes. Basal saturation 92.1%. High saturation 96%. Low saturation 79%. Time with saturation less than or equal to 88% was 4 minutes and 58 seconds. I will continue oxygen 3 L at night. 06/24/2024: This is a 6 minute walk test. The test was performed and interpreted in accordance with the 2014 ERS/ATS task force guidelines. Of note, patient used to wheeled walker for stability and the testing was performed on his home portable oxygen concentrator at 3 L with pulse dose. Findings: The patient's resting 3 L oxygen saturation measured by pulse oximetry was 95% and heart rate was 80 bpm. Patient ambulated for 137 meters and oxygen saturation remained 91 to 92%. Heart rate at the end of the study was 94 bpm. The patient did not have rest or exertional hypoxemia on 3 L nasal cannula pulse dose with his portable oxygen concentrator. 02/25/24 - CTA chest (ER) - No PE identified. 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 There is patchy consolidation in the right middle and bilateral lower lobes with additional regions of tree-in-bud opacity scattered throughout both lungs consistent with multifocal pneumonia. There is associated bronchial wall thickening and mucous plugging in the bilateral lower lobes. Tiny left pleural effusion. No septal line thickening to suggest pulmonary edema. No pneumothorax. Mild cardiomegaly. Atherosclerotic coronary artery calcifications. No pericardial effusion. 02/25/2024: ABG on 4 L cannula 7.39/35/63 01/15/24 - Home O2 eval - Required 2L/min O2 with ambulation and none at rest. 12/16/23 - PFT The test was performed and results interpreted in accordance with the 2019 and 2005 ATS/ERS Task Force guidelines respectively using the Global Lung Function Initiative-2012 reference equations. Patient demonstrated good effort and cooperation. Reproducibility criteria were met. The quality of the pre bronchodilator spirometry maneuver was Grade A and post bronchodilator spirometry maneuver was Grade A. Findings: Spirometry: There is decreased maximal expiratory airflow at all lung volumes with concave expiratory flow tracing. The contour the inspiratory flow tracing is normal. The pre bronchodilator FVC is 3.33 L, 82% predicted. The pre bronchodilator FEV1 is 2.02 L, 68% predicted. The pre bronchodilator FEV1: FVC ratio 61%. The post bronchodilator FVC is 3.41 L, representing a 2% increase. The post bronchodilator FEV1 is 2.09 L, representing a 3% increase. The post bronchodilator FEV1: FVC ratio 61%. Plethysmography: The total lung capacity is 6.43 L, 89% predicted. The functional residual capacity is 4.14 L, 106% predicted. The residual volume is 3.10 L, 115% predicted. The residual volume: Total lung capacity ratio is 48%. Diffusing capacity: The diffusing capacity unadjusted for hemoglobin and carboxyhemoglobin is 9.0, 37% predicted. The diffusing capacity adjusted for alveolar volume is 2.29, 64% predicted. Comparison to previous pulmonary function testing on 01/01/2022 the post bronchodilator FVC has decreased from 4.38 L to 3.41 L. The post bronchodilator FEV1 has decreased from 3.11 L to 2.09 L. the total lung capacity is decreased from 7.39 L to 6.43 L. The functional residual capacity has decreased from 4.95 L to 4.14 L. The residual volume is unchanged from 2.93 L to 3.10 L. The diffusing capacity unadjusted for hemoglobin and carboxyhemoglobin is decreased from 14.9 to 9.0. The diffusing capacity adjusted for alveolar volume decreased from 2.63 to 2.29 Impression: There is a mild obstructive abnormality. There is no significant improvement after inhaling a single dose of albuterol. The increase in residual volume to total lung volume ratio is consistent with hyperinflation from an obstructive abnormality. The diffusing capacity unadjusted for hemoglobin and carboxyhemoglobin is severely decreased and remains mildly decreased when adjusted for alveolar volume. Compared to prior pulmonary function testing on 01/01/2022 there has been a significant decrease in the FVC, FEV1, total lung capacity, functional residual capacity and diffusing capacity with no significant change in the residual volume. 09/16/23 - Home O2 eval - Required 2L/min O2 with ambulation and none at rest. 01/01/22 - Home O2 eval - Patient did not require supplemental oxygen at rest or with exertion. 01/01/22 - PFTs - Mild obstructive abnormality with normal FEV1 without significant improvement after inhaling a single dose of albuterol. Lung volumes normal. The diffusing capacity unadjusted for hemoglobin is moderately decreased and normalizes when adjusted for alveolar volume. 12/18/21 - Overnight oximetry on room air - Time with saturation less than or equal to 88% was 4.0 minutes. Patient does not qualify for supplemental oxygen at night. 10/10/2021 - ABG on 4L NC - 7.44/43/70. 10/20/21 - Chest XR - Persistent patchy bilateral airspace disease with possible improvement in the left lung, compatible with pneumonia. 10/11/2021 - CTA chest - Extensive bilateral pulmonary infiltrates and likely reactive hilar or mediastinal adenopathy. Small right pleural effusion. No evidence of pulmonary embolism. 10/11/2021 - Echo - LV systolic function mildly reduced, EF 45-50%. Grade I diastolic dysfunction. The inferior wall, inferoseptal wall, basal inferolateral wall, and mid inferolateral wall are hypokinetic. Mild LA enlargement. No pulmonary hypertension. Review of Systems Review of Systems: All systems reviewed & are unremarkable except as noted in HPI and below Exam Narrative: GEN: Alert, oriented, not in distress. His hearing appears better, Nasal cannula O2 4 L/min -> sat 93-96%. He has Breathe Right nasal strips on the bridge of his nose due to right nostril collapsing easily. This has been a problem for years. HEENT: pupils are equal, EOMI, symmetrical face; oral membranes parched, upper and lower dentures NECK: Trachea is midline, prior jaw surgery CHEST: Equal air entry, many rhonchi, secretions are more loose, and he is able to cough and expectorate some CV: distant S1S2 no m/g/r Extremities : no clubbing, cyanosis, or edema; left foot is weak; he has left foot drop from accident 5 years ago when he fell off the front [email or web address] PSYCH: Hearing is better compared to admission. He is pleasant, does not appear to have insight. He asks about going to rehab. He does not accept that he has physical capability to allow him to put forth a lot of effort at home. Objective Data Vital Signs Vital Signs: Vital Signs - 24 hr 06/21/25 19:51 06/21/25 19:55 06/21/25 20:00 Temperature Pulse Rate 75 75 Respiratory Rate 20 20 Blood Pressure Pulse Oximetry 95 94 Oxygen Delivery Nasal Cannula Nasal Cannula Oxygen Flow Rate 4 4 Fraction of Inspired Oxygen 36 06/21/25 20:13 06/21/25 20:53 06/21/25 21:32 Temperature 35.9 C L Pulse Rate 76 78 80 Respiratory Rate 20 17 Blood Pressure 102/58 L Pulse Oximetry 95 Oxygen Delivery Oxygen Flow Rate Fraction of Inspired Oxygen 06/22/25 01:24 06/22/25 05:07 06/22/25 08:00 Temperature 36.4 C Pulse Rate 68 70 Respiratory Rate 20 15 Blood Pressure 131/68 Pulse Oximetry 94 95 Oxygen Delivery Nasal Cannula Oxygen Flow Rate 4 Fraction of Inspired Oxygen 06/22/25 08:00 06/22/25 08:01 06/22/25 08:17 Temperature Pulse Rate 77 74 77 Respiratory Rate 18 18 18 Blood Pressure Pulse Oximetry 95 Oxygen Delivery Nasal Cannula Oxygen Flow Rate 4 Fraction of Inspired Oxygen 36 06/22/25 13:55 06/22/25 14:00 06/22/25 14:10 Temperature 36.0 C L Pulse Rate 72 63 75 Respiratory Rate 18 16 18 Blood Pressure 107/50 L Pulse Oximetry 98 Oxygen Delivery Oxygen Flow Rate Fraction of Inspired Oxygen Intake/Output Intake/Output: Intake & Output 06/19/25 06/20/25 06/21/25 06/22/25 23:59 23:59 23:59 23:59 Intake Total 964 967 3318 1200 Output Total 900 1350 1375 1900 Balance 20 -630 302 -700 Meds/Results Medications: Active Medications Generic Name Dose Route Start Last Admin Trade Name Freq PRN Reason Stop Dose Admin Acetaminophen 650 mg 06/15/25 18:22 06/21/25 21:33 Acetaminophen 325 Mg Tablet PO 650 mg Q4H PRN Administration Mild Pain (1-3) or Fever Acetylcysteine 400 mg 06/17/25 20:00 06/22/25 15:08 Acetylcysteine 20% Inhal Soln 800 Mg/4 Ml Vial INHALATION 400 mg TIDRT GIOVANNY Administration Acyclovir 400 mg 06/16/25 21:00 06/22/25 17:11 Acyclovir 400 Mg Tablet PO 400 mg TID GIOVANNY Administration Albuterol/Ipratropium 3 ml 06/15/25 20:00 06/22/25 15:09 Ipratropium 0.5 Mg/Albuterol Sulfate 2.5 Mg Ampul.Neb 3 Ml INHALATION 3 ml Q6HRT GIOVANNY Administration Aspirin 81 mg 06/16/25 09:00 06/22/25 09:59 Aspirin 81 Mg Enteric Tablet PO 81 mg DAILY GIOVANNY Administration Atorvastatin Calcium 80 mg 06/16/25 09:00 06/22/25 10:00 Atorvastatin 40 Mg Tablet PO 80 mg DAILY GIOVANNY Administration Baclofen 10 mg 06/15/25 18:01 Baclofen 10 Mg Tablet PO Q12H PRN muscle spasm Benzonatate 200 mg 06/16/25 09:00 Benzonatate 100 Mg Capsule PO TID PRN Cough Bupropion HCl 150 mg 06/16/25 21:00 06/22/25 09:59 Bupropion Hcl Sr (12 Hr) 150 Mg Tab PO 150 mg Q12HR GIOVANNY Administration Buspirone HCl 2.5 mg 06/17/25 21:00 06/22/25 09:59 Buspirone Hcl 2.5 Mg Tablet PO 2.5 mg Q12HR GIOVANNY Administration Docusate Sodium 100 mg 06/16/25 09:00 06/22/25 17:11 Docusate Sodium 100 Mg Capsule PO 100 mg BID GIOVANNY Administration Enoxaparin Sodium 40 mg 06/16/25 09:00 06/22/25 10:02 Enoxaparin 40 Mg/0.4 Ml Syringe SUB-Q 40 mg DAILY GIOVANNY Administration Ethambutol HCl 1,200 mg 06/16/25 09:00 06/22/25 09:59 Ethambutol Hcl 400 Mg Tablet PO 1,200 mg DAILY GIOVANNY Administration Fenofibrate 145 mg 06/16/25 09:00 06/22/25 09:59 Fenofibrate Nanocrystallized 145 Mg Tablet PO 145 mg QAM GIOVANNY Administration Fluticasone/Umeclidinium/Vilanterol 1 puff 06/16/25 08:00 06/22/25 08:21 Fluticasone/Umeclidin/Vilanter 100-62.5-25 Mcg Ellipta INHALATION 1 puff DAILYRT GIOVANNY Administration Furosemide 40 mg 06/21/25 09:00 06/22/25 10:00 Furosemide 40 Mg Tablet PO 40 mg DAILY GIOVANNY Administration Hydroxyzine HCl 25 mg 06/17/25 19:54 Hydroxyzine Hcl 25 Mg Tablet PO QID PRN anxiety Lorazepam 0.5 mg 06/15/25 18:01 06/19/25 20:40 Lorazepam (*Crx) 0.5 Mg Tablet PO 0.5 mg BID PRN Administration anxiety Losartan Potassium 25 mg 06/16/25 09:00 06/22/25 09:59 Losartan Potassium 25 Mg Tablet PO 25 mg DAILY GIOVANNY Administration Metoprolol Succinate 50 mg 06/15/25 21:00 06/21/25 21:32 Metoprolol Succinate Ext Rel 50 Mg Tabcr PO 50 mg HS GIOVANNY Administration Morphine Sulfate 30 mg 06/16/25 09:00 06/22/25 09:59 Morphine Sulfate (*Crx) 30 Mg Tabcr PO 30 mg DAILY GIOVANNY Administration Nitroglycerin 0.4 mg 06/15/25 18:20 Nitroglycerin Sl 0.4 Mg Tablet SUBLINGUAL Q5M PRN chest pain Sulindac 200 Mg 200 mg 06/16/25 17:00 06/22/25 17:11 Tablet Home Med PO 07/16/25 16:59 200 mg BID GIOVANNY Administration Rifabutin 150 Mg 300 mg 06/18/25 09:00 06/22/25 10:02 Capsule Home Med PO 07/18/25 08:59 Not Given DAILY GIOVANNY Pantoprazole Sodium 40 mg 06/16/25 09:00 06/22/25 09:59 Pantoprazole 40 Mg Tablet PO 40 mg QAM GIOVANNY Administration Polyethylene Glycol 17 gm 06/20/25 09:00 06/22/25 09:59 Polyethylene Glycol 3350 17 Gm Powd.Pack PO 17 gm QAM GIOVANNY Administration Prednisone 40 mg 06/16/25 08:00 06/22/25 09:59 Prednisone 20 Mg Tablet PO 40 mg DAILY@0800 GIOVANNY Administration Sertraline HCl 50 mg 06/16/25 09:00 06/22/25 10:00 Sertraline Hcl 50 Mg Tablet PO 50 mg DAILY GIOVANNY Administration Sodium Chloride 5 ml 06/18/25 20:00 06/22/25 15:08 Sodium Chlor 3% 15 Ml Neb (Respiratory Therapy) INHALATION 5 ml TIDRT GIOVANNY Administration Tamsulosin HCl 0.4 mg 06/21/25 21:00 06/22/25 09:59 Tamsulosin Hcl 0.4 Mg Capsule PO 0.4 mg Q12HR GIOVANNY Administration Tobramycin/Dexamethasone 1 drop 06/15/25 21:00 06/22/25 17:12 Tobramycin/Dexamethasone Op 2.5 Ml Btl EACH EYE 1 drop QID GIOVANNY Administration Trazodone HCl 100 mg 06/15/25 21:00 06/21/25 21:32 Trazodone Hcl 50 Mg Tablet PO 100 mg HS GIOVANNY Administration Radiology Results: ITS Impressions Chest X-Ray 06/20/25 10:11 IMPRESSION: Redemonstration of volume loss within the right hemithorax with adjacent compressive atelectasis and a small right-sided pleural effusion.
[2025-06-22] MEDS: METOPROLOL SUCCINATE EXT REL 50 MG TABCR PO (20:56)
[2025-06-22] MEDS: ACETAMINOPHEN 325 MG TABLET 650 MG PO (20:57)
[2025-06-23] VITALS (9 sets, daily range): BP systolic 98–132; BP diastolic 50–52; PULSE 64–98; RESP 14–20; TEMP 35.9–36.4; O2SAT 94–99
[2025-06-23] MEDS: IPRATROPIUM 0.5 MG/ALBUTEROL SULFATE 2.5 MG AMPUL.NEB 3 ML INHALATION ×3 (01:44→14:50)
[2025-06-23] MEDS: ACETYLCYSTEINE 20% INHAL SOLN 800 MG/4 ML VIAL 400 MG INHALATION ×2 (07:42→14:50)
[2025-06-23] MEDS: SODIUM CHLOR 3% 15 ML NEB (RESPIRATORY THERAPY) 5 ML INHALATION ×2 (07:43→14:51)
[2025-06-23] MEDS: UMECLIDINIUM/VILANTEROL 62.5-25 MCG ELLIPTA 1 PUFF INHALATION (08:01)
[2025-06-23] MEDS: ATORVASTATIN 40 MG TABLET 80 MG PO (09:07)
[2025-06-23] MEDS: ETHAMBUTOL HCL 400 MG TABLET 1200 MG PO (09:07)
[2025-06-23] MEDS: DOCUSATE SODIUM 100 MG CAPSULE PO (09:07)
[2025-06-23] MEDS: MORPHINE SULFATE (*CRX) 30 MG TABCR PO (09:08)
[2025-06-23] MEDS: busPIRone HCL 2.5 MG TABLET PO (09:08)
[2025-06-23] MEDS: FUROSEMIDE 40 MG TABLET PO (09:08)
[2025-06-23] MEDS: TAMSULOSIN HCL 0.4 MG CAPSULE PO (09:08)
[2025-06-23] MEDS: AZITHROMYCIN 250 MG TABLET PO (09:08)
[2025-06-23] MEDS: FENOFIBRATE NANOCRYSTALLIZED 145 MG TABLET PO (09:08)
[2025-06-23] MEDS: buPROPion HCL SR (12 HR) 150 MG TAB PO (09:08)
[2025-06-23] MEDS: PANTOPRAZOLE 40 MG TABLET PO (09:08)
[2025-06-23] MEDS: ASPIRIN 81 MG ENTERIC TABLET PO (09:08)
[2025-06-23] MEDS: LOSARTAN POTASSIUM 25 MG TABLET PO (09:08)
[2025-06-23] MEDS: ACYCLOVIR 400 MG TABLET PO (09:08)
[2025-06-23] MEDS: SERTRALINE HCL 50 MG TABLET PO (09:08)
[2025-06-23] MEDS: SULINDAC 200 MG 200 EACH PO (09:10)
[2025-06-23] MEDS: ENOXAPARIN 40 MG/0.4 ML SYRINGE SUB-Q (09:10)
[2025-06-23] MEDS: TOBRAMYCIN/DEXAMETHASONE OP 2.5 ML BTL 1 DROP EACH EYE (09:10)
--- NOTE | 2025-06-23 09:56 | P.CONS_ITS ---
Assessment and Plan Assessment and plan (1) Dysfunction of left eustachian tube: Code(s): H69.92 - Unspecified Eustachian tube disorder, left ear Status: Acute (2) Impacted cerumen, right ear: Code(s): H61.21 - Impacted cerumen, right ear Status: Acute (3) Allergic rhinitis: Qualifiers: Allergic rhinitis trigger: unspecified Allergic rhinitis seasonality: u nspecified Qualified Code(s): J30.9 - Allergic rhinitis, unspecified Code(s): J30.9 - Allergic rhinitis, unspecified Status: Acute (4) Nasal mucosa dry: Code(s): J34.89 - Other specified disorders of nose and nasal sinuses Status: Acute Plan 80-year-old male with right sore on the anterior aspect of the nasal septum, left-sided station tube dysfunction, right-sided impacted cerumen. 1. Advised to use Flonase nasal spray 2 puffs in the left nostril only twice daily for 2 months. 2. Advised to use Mupirocin nasal ointment in the right nostril only: To be applied topically twice for 10 days. 3. Advised to have a follow-up appointment in the ENT Clinic after discharge from hospital for impacted cerumen removal, full examination of the nasal cavity and the left ear. 4. Repeat consult as needed HPI Data of Consult Date/Time: 06/23/25 09:56 Requesting Physician: Sinan Rock MD Primary Care Provider: Rogelio Moeller DO Consult Narrative Reason for consult: Left ear block Narrative: Russell Morse is a 80 year old male who I was consulted regarding left ear blockage. Patient reports having left ear blockage on and off associated with popping sensation in the left ear. He denies vertigo imbalance or hearing difficulty in the left side. Patient reports having right-sided ear blockage related to hearing loss. He was prescribed hearing aids which he does not use much Patient denies nasal blockage postnasal drip or frequent sinus infections. Patient denies sinus headache or ear pain Review of Systems 2 Review of Systems: All systems reviewed & are unremarkable except as noted in HPI and below Constitutional: Constitutional: Reports as per HPI ENT: Reports as per HPI [facility] Past Medical History Medical History (Updated 06/23/25 @ 10:00 by Marta Lyn MD) Dysfunction of left eustachian tube Leukocytosis Heart failure with mildly reduced ejection fraction Chronic pulmonary aspergillosis Major depressive disorder, recurrent, mild Left foot drop Chronic kidney disease, stage 3 Spinal stenosis, lumbar region without neurogenic claudication Ischemic cardiomyopathy Echocardiogram 09/2021: Mildly reduced left ventricular systolic function EF of 45-50%, grade 1 diastolic dysfunction, inferior wall inferior septal wall basal inferior wall and mid inferior lateral wall hypokinesis with mild left atrial and large SVT (supraventricular tachycardia) 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 History of tobacco use Polio (1951) Other chronic pain Aortic stenosis Mild - Echo 05/15/2022 NSTEMI (non-ST elevated myocardial infarction) (08/2019) Atherosclerotic heart disease of [place] coronary artery without angina pectoris Abdominal aortic aneurysm, without rupture Seen on CT scan on 02/09/2018 Restless legs syndrome Surgical History Surgical History History of tonsillectomy and adenoidectomy History of repair of rotator cuff bilateral History of colonoscopy with polypectomy History of bowel resection due to obstruction Presence of coronary angioplasty implant and graft History of coronary artery stent placement X2 History of mandibular surgery (1986) reconstructive surgery right mandible related to cancer Family History Family History Mother Diabetes mellitus Acute myocardial infarction Father Colon cancer COPD (chronic obstructive pulmonary disease) Sibling Colon cancer Acute myocardial infarction Lung cancer COPD (chronic obstructive pulmonary disease) Sibling COPD (chronic obstructive pulmonary disease) Sibling Congestive heart failure Sibling Dementia Social History Social History Social History: Surrogate medical decision maker: Yessi Morgan, daughter. Code status: Full code. But he states he would not want to be on a ventilator long-term have a tracheostomy or feeding tube. Smoking packs per day: 1.5 Smoking cigarettes per day: 30.0 Years smoked: 55 Smoking pack-years: 82.50 Smoking status: Former smoker Tobacco type: cigarettes Second hand tobacco smoke exposure: No Alcohol intake: never Substance use: never Substance use type: does not use Other substance usage details: quit alcohol in 2010 Last use: Last alcohol use 2010 Do You Feel Safe in your Home?: Yes Lack of Transportation: No Lack of Food: Never True Current Housing: I Have Housing Concerned About Future Housing: No Difficulty Paying Gas/Electric Bills: No Difficulty Paying for Meds: No Currently Unemployed: No Education: High School Diploma/GED Difficulty w/ Childcare or Family Care: No Living arrangements: with family Additional living arrangements comments: . Lives in [place] with son and [id number]. 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 Spiritual care concerns: No Agree to blood products: Yes Meds Home Medications and Allergies Home Medications ?Medication ?Instructions ?Recorded ?Confirmed ?Type acetaminophen 500 mg tablet 1,000 mg PO Q6H PRN Pain 03/18/23 06/15/25 History (Tylenol Extra Strength) aspirin 81 mg tablet,delayed 81 mg PO DAILY #90 tabs 06/15/23 06/15/25 Rx release fenofibrate 160 mg tablet 160 mg PO DAILY #90 tabs 09/16/23 06/15/25 Rx nebulizer accessories #1 ea 04/12/24 06/15/25 Rx nebulizer and compressor #1 ea 04/12/24 06/15/25 Rx linaclotide 290 mcg capsule See Rx Instructions .Route 04/28/24 06/15/25 Rx (Linzess) .COMPLEX #90 caps albuterol sulfate 90 mcg/actuation 2 puff inhalation Q4H PRN 10/03/24 06/15/25 Rx aerosol inhaler Shortness Of Breath Or Wheezing #8.5 grams baclofen 10 mg tablet 10 mg PO Q12H PRN muscle spasm 12/02/24 06/15/25 History albuterol sulfate 2.5 mg/3 mL 2.5 mg (3 mL) inhalation Q4H PRN 12/08/24 06/15/25 Rx (0.083 %) solution for nebulization shortness of breath or wheezing #90 mL nitroglycerin 0.4 mg sublingual 0.4 mg sublingual Q5M PRN chest 12/08/24 06/15/25 Rx tablet pain #25 tabs bupropion HCl 150 mg tablet,12 hr 150 mg PO BID #180 tabs 12/28/24 06/15/25 Rx sustained-release metoprolol succinate 50 mg 50 mg PO HS #90 tabs 12/29/24 06/15/25 Rx tablet,extended release 24 hr lorazepam 0.5 mg tablet 0.5 mg PO BID PRN anxiety #60 tabs 03/21/25 06/15/25 Rx tobramycin 0.3 %-dexamethasone 0.1 1 drp EACH EYE QID #10 mL 04/05/25 06/15/25 Rx % eye drops,suspension sulindac 200 mg tablet 200 mg PO BID #180 tabs 04/07/25 06/15/25 Rx atorvastatin 80 mg tablet 80 mg PO DAILY #90 tabs 04/11/25 06/15/25 Rx sertraline 50 mg tablet 50 mg PO DAILY #90 tabs 04/20/25 06/15/25 Rx benzonatate 200 mg capsule See Rx Instructions .Route 04/26/25 06/15/25 Rx .COMPLEX #90 caps glycopyrrolate 9 mcg-formoterol 2 puff inhalation BID #10.7 grams 04/28/25 06/15/25 Rx 4.8 mcg HFA aerosol inhaler (Bevespi Aerosphere) acyclovir 400 mg tablet 400 mg PO TID #21 tabs 05/03/25 06/15/25 Rx hydroxyzine HCl 25 mg tablet 25 mg PO QID PRN anxiety #50 tabs 05/19/25 06/15/25 Rx trazodone 100 mg tablet 100 mg PO HS Insomnia #90 tabs 05/24/25 06/15/25 Rx azithromycin 500 mg tablet 500 mg PO DAILY 06/15/25 06/15/25 History budesonide 160 mcg-glycopyr 9 2 inh inhalation .q12hr 06/15/25 06/15/25 History mcg-formot 4.8 mcg/actuation HFA inhaler (Breztri Aerosphere) esomeprazole magnesium 20 mg 40 mg PO DAILY 06/15/25 06/15/25 History capsule,delayed release ethambutol 400 mg tablet 1,200 mg PO DAILY 06/15/25 06/15/25 History fenofibrate 160 mg tablet 160 mg PO DAILY 06/15/25 06/15/25 History furosemide 20 mg tablet 40 mg PO DAILY 06/15/25 06/15/25 History levofloxacin 750 mg tablet 750 mg PO DAILY 06/15/25 06/15/25 History losartan 25 mg tablet 25 mg PO DAILY 06/15/25 06/15/25 History morphine 30 mg tablet,extended 30 mg PO Q12H PRN pain 06/15/25 06/15/25 History release rifabutin 150 mg capsule 300 mg PO DAILY 06/15/25 06/15/25 History tamsulosin 0.4 mg capsule 0.4 mg PO DAILY 06/15/25 06/15/25 History Allergies Allergy/AdvReac Type Severity Reaction Status Date / Time clonazepam AdvReac Severe Drowsy Verified 05/30/25 19:29 roflumilast (From [facility]) AdvReac Severe Diarrhea Verified 05/30/25 19:29 Vital Signs Vital Signs - 24 hr 06/22/25 13:55 06/22/25 14:00 06/22/25 14:10 Temperature 36.0 C L Pulse Rate 72 63 75 Respiratory Rate 18 16 18 Blood Pressure 107/50 L Pulse Oximetry 98 Oxygen Delivery Oxygen Flow Rate Fraction of Inspired Oxygen 06/22/25 19:57 06/22/25 20:00 06/22/25 20:05 Temperature Pulse Rate 77 76 Respiratory Rate 18 14 Blood Pressure Pulse Oximetry 98 95 Oxygen Delivery Nasal Cannula Nasal Cannula Oxygen Flow Rate 4 4 Fraction of Inspired Oxygen 36 06/22/25 20:13 06/22/25 20:56 06/22/25 21:23 Temperature 36.1 C L Pulse Rate 75 76 76 Respiratory Rate 18 14 Blood Pressure 110/43 L Pulse Oximetry 98 Oxygen Delivery Oxygen Flow Rate Fraction of Inspired Oxygen 06/23/25 01:45 06/23/25 01:55 06/23/25 05:44 Temperature 36.4 C Pulse Rate 72 70 64 Respiratory Rate 18 18 14 Blood Pressure 132/52 L Pulse Oximetry 98 Oxygen Delivery Oxygen Flow Rate Fraction of Inspired Oxygen 06/23/25 07:45 06/23/25 07:45 06/23/25 08:07 Temperature Pulse Rate 64 64 98 Respiratory Rate 20 20 20 Blood Pressure Pulse Oximetry 99 Oxygen Delivery Nasal Cannula Oxygen Flow Rate 4 Fraction of Inspired Oxygen Exam 2 Const: General: cooperative, healthy appearing, comfortable, no acute distress, well developed, alert, awake and Physically active O rientation/consciousness: oriented to person, oriented to place, oriented to time and patient oriented x3 HENMT: Head: normocephalic and atraumatic Ears: external ears normal and EAC's normal Face/Nose/Sinus: Normal external nose present and Normal nares present Mouth: Yes Normal oral and palatal mucosa present, Yes lip normal and Yes tongue normal Other: Left ear: Dull tympanic membrane Right ear impacted cerumen No tenderness over the TMJ Nose: A row area over the right anterior aspect of the nasal septum, left nasal cavity within normal limits Neck: No palpable masses Throat: Within normal limits no postnasal drip Eyes: General: appearance normal, both eyes and all related structures Neck: Neck: normal visual inspection, full ROM and trachea midline Resp: Effort & Inspection: normal respiratory effort and able to speak in complete sentences Cardio: Rate: regular rate Neuro: General: oriented to person, oriented to place, oriented to time and patient oriented x3 Results Labs 06/21/25 06:21 06/21/25 06:21
--- NOTE | 2025-06-23 11:15 | P.PNIM_ITS ---
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: Qualifiers: Heart failure chronicity: acute on chronic Qualified Code(s): I50.43 - Acute on chronic combined systolic (congestive) and diastolic (congestive) heart failure Code(s): I50.40 - Unspecified combined systolic (congestive) and diastolic (congestive) heart failure Status: Acute (3) COPD exacerbation: Code(s): J44.1 - Chronic obstructive pulmonary disease with (acute) exacerbation Status: Acute Plan SNEHA (mycobacterium avium-intracellulare): Code(s): A31.0 - Pulmonary mycobacterial infection Status: Acute Assessment and Plan: Continue home antibiotic: ethambutol hcl, rifabutin, acyclovir, Completed levaquin [facility]igil evaluated and canceled transfer to [facility] Received Ethambutol, acyclovir, and Rifabutin. Per dictating machine transcriber, he needs to be on azithromycin 250 mg a day decreased from 500 mg; this is lower due to the dose related hearing loss. Acute on chronic combined systolic (congestive) and diastolic (congestive) heart failure Code(s): I50.40 - Unspecified combined systolic (congestive) and diastolic (congestive) heart failure Status: Acute Assessment and Plan: Acute on chronic received 40 of IV Lasix daily Daily weight Transition to Lasix 40 mg po daily from IV. Compensated * Chronic pulmonary aspergillosis: Code(s): B44.1 - Other pulmonary aspergillosis Status: Acute Assessment and Plan: See plan above * Chronic hypoxic respiratory failure, on home oxygen therapy: Code(s): J96.11 - Chronic respiratory failure with hypoxia; Z99.81 - Dependence on supplemental oxygen Status: Acute Assessment and Plan: Acute on chronic, on 4 L O2 at home found to be 70% on pulse ox by EMS See plan above Solu-Medrol x1 Prednisone Continue Prednisone, which may be the increase in pt's WBC's. (5) Code(s): D72.829 - Elevated white blood cell count, unspecified Status: Acute Assessment and Plan: 06/20/25: Increase in WBC's to 16.1 from 5.0 yesterday. Etiology new infection vs. Steroids CXR negative for new or worsening, UA negative Trend values HTN (hypertension): Qualifiers: Hypertension type: primary hypertension Qualified Code(s): I10 - Essential (primary) hypertension Code(s): I10 - Essential (primary) hypertension Status: Chronic hyperlipidemia * Continue Atorvastatin (8) Chronic anemia: Code(s): D64.9 - Anemia, unspecified Status: Acute Assessment and Plan: At baseline No signs of acute bleeding CBC in a.m. elevated troponin demand ischemia due to respiratory failure infection Continue nitro, metoprolol, losartan, and aspirin Patient will be discharged home with home of Subjective Date/time seen: 06/23/25 11:15 Interval history: I saw exam patient today, patient condition continued to improve Patient is afebrile, blood pressure stable Exercise tolerance increase. Still has cough with scant phlegm Denies chest pain shortness of breath at rest Exam Narrative: GENERAL: Pleasant, in no acute distress. Well-nourished. - EYES: EOMI. Anicteric. - HENT: Moist mucous membranes. - LUNGS: Clear to auscultation bilateral ly, no wheezing, rhonchi, or rales. - CARDIOVASCULAR: Regular rate and rhyth m. No murmur. No JVD. - ABDOMEN: Soft, non-tender and non-dist ended. No palpable masses. - EXTREMITIES: No edema. Peripheral puls es 2+. Non-tender. - NEUROLOGIC: No focal neurological defi cits. CN II-XII grossly intact. - PSYCHIATRIC: Awake, Alert and oriented x 3. Appropriate mood and affect. - SKIN: No rashes or lesions. Warm. - LYMPH: No cervical lymphadenopathy. Objective Data Vital Signs Vital Signs: Vital Signs - 24 hr 06/22/25 13:55 06/22/25 14:00 06/22/25 14:10 Temperature 96.8 F L Pulse Rate 72 63 75 Respiratory Rate 18 16 18 Blood Pressure 107/50 L Pulse Oximetry 98 Oxygen Delivery Oxygen Flow Rate Fraction of Inspired Oxygen 06/22/25 19:57 06/22/25 20:00 06/22/25 20:05 Temperature Pulse Rate 77 76 Respiratory Rate 18 14 Blood Pressure Pulse Oximetry 98 95 Oxygen Delivery Nasal Cannula Nasal Cannula Oxygen Flow Rate 4 4 Fraction of Inspired Oxygen 36 06/22/25 20:13 06/22/25 20:56 06/22/25 21:23 Temperature 97.0 F L Pulse Rate 75 76 76 Respiratory Rate 18 14 Blood Pressure 110/43 L Pulse Oximetry 98 Oxygen Delivery Oxygen Flow Rate Fraction of Inspired Oxygen 06/23/25 01:45 06/23/25 01:55 06/23/25 05:44 Temperature 97.6 F Pulse Rate 72 70 64 Respiratory Rate 18 18 14 Blood Pressure 132/52 L Pulse Oximetry 98 Oxygen Delivery Oxygen Flow Rate Fraction of Inspired Oxygen 06/23/25 07:45 06/23/25 07:45 06/23/25 08:00 Temperature Pulse Rate 64 64 Respiratory Rate 20 20 Blood Pressure Pulse Oximetry 99 99 Oxygen Delivery Nasal Cannula Nasal Cannula Oxygen Flow Rate 4 3 Fraction of Inspired Oxygen 06/23/25 08:07 Temperature Pulse Rate 98 Respiratory Rate 20 Blood Pressure Pulse Oximetry Oxygen Delivery Oxygen Flow Rate Fraction of Inspired Oxygen Intake/Output Intake/Output: Intake & Output 06/20/25 06/21/25 06/22/25 06/23/25 23:59 23:59 23:59 23:59 Intake Total 720 1677 1600 300 Output Total 1350 1375 2100 500 Balance -630 302 -500 -200 Meds/Results Medications: Active Medications Generic Name Dose Route Start Last Admin Trade Name Freq PRN Reason Stop Dose Admin Acetaminophen 650 mg 06/15/25 18:22 06/22/25 20:57 Acetaminophen 325 Mg Tablet PO 650 mg Q4H PRN Administration Mild Pain (1-3) or Fever Acetylcysteine 400 mg 06/17/25 20:00 06/23/25 07:42 Acetylcysteine 20% Inhal Soln 800 Mg/4 Ml Vial INHALATION 400 mg TIDRT GIOVANNY Administration Albuterol/Ipratropium 3 ml 06/15/25 20:00 06/23/25 07:42 Ipratropium 0.5 Mg/Albuterol Sulfate 2.5 Mg Ampul.Neb 3 Ml INHALATION 3 ml Q6HRT GIOVANNY Administration Aspirin 81 mg 06/16/25 09:00 06/23/25 09:08 Aspirin 81 Mg Enteric Tablet PO 81 mg DAILY GIOVANNY Administration Atorvastatin Calcium 80 mg 06/16/25 09:00 06/23/25 09:07 Atorvastatin 40 Mg Tablet PO 80 mg DAILY GIOVANNY Administration Azithromycin 250 mg 06/23/25 09:00 06/23/25 09:08 Azithromycin 250 Mg Tablet PO 250 mg DAILY GIOVANNY Administration Baclofen 10 mg 06/15/25 18:01 Baclofen 10 Mg Tablet PO Q12H PRN muscle spasm Benzonatate 200 mg 06/16/25 09:00 Benzonatate 100 Mg Capsule PO TID PRN Cough Bupropion HCl 150 mg 06/16/25 21:00 06/23/25 09:08 Bupropion Hcl Sr (12 Hr) 150 Mg Tab PO 150 mg Q12HR GIOVANNY Administration Buspirone HCl 2.5 mg 06/17/25 21:00 06/23/25 09:08 Buspirone Hcl 2.5 Mg Tablet PO 2.5 mg Q12HR GIOVANNY Administration Docusate Sodium 100 mg 06/16/25 09:00 06/23/25 09:07 Docusate Sodium 100 Mg Capsule PO 100 mg BID GIOVANNY Administration Enoxaparin Sodium 40 mg 06/16/25 09:00 06/23/25 09:10 Enoxaparin 40 Mg/0.4 Ml Syringe SUB-Q 40 mg DAILY GIOVANNY Administration Ethambutol HCl 1,200 mg 06/16/25 09:00 06/23/25 09:07 Ethambutol Hcl 400 Mg Tablet PO 1,200 mg DAILY GIOVANNY Administration Fenofibrate 145 mg 06/16/25 09:00 06/23/25 09:08 Fenofibrate Nanocrystallized 145 Mg Tablet PO 145 mg QAM GIOVANNY Administration Furosemide 40 mg 06/21/25 09:00 06/23/25 09:08 Furosemide 40 Mg Tablet PO 40 mg DAILY GIOVANNY Administration Lorazepam 0.5 mg 06/15/25 18:01 06/19/25 20:40 Lorazepam (*Crx) 0.5 Mg Tablet PO 0.5 mg BID PRN Administration anxiety Losartan Potassium 25 mg 06/16/25 09:00 06/23/25 09:08 Losartan Potassium 25 Mg Tablet PO 25 mg DAILY GIOVANNY Administration Metoprolol Succinate 50 mg 06/15/25 21:00 06/22/25 20:56 Metoprolol Succinate Ext Rel 50 Mg Tabcr PO 50 mg HS GIOVANNY Administration Miscellaneous Information 1 each 06/23/25 00:01 Bevespi Is Nonform And Auto-Subs To Anoro Ellipta, Pt Is Already On Anoro Ellipta. Ok To H XX 07/23/25 00:00 CLARIFY GIOVANNY Morphine Sulfate 30 mg 06/16/25 09:00 06/23/25 09:08 Morphine Sulfate (*Crx) 30 Mg Tabcr PO 30 mg DAILY GIOVANNY Administration Nitroglycerin 0.4 mg 06/15/25 18:20 Nitroglycerin Sl 0.4 Mg Tablet SUBLINGUAL Q5M PRN chest pain Sulindac 200 Mg 200 mg 06/16/25 17:00 06/23/25 09:10 Tablet Home Med PO 07/16/25 16:59 200 mg BID GIOVANNY Administration Rifabutin 150 Mg 300 mg 06/18/25 09:00 06/23/25 09:10 Capsule Home Med PO 07/18/25 08:59 Not Given DAILY GIOVANNY Non-Formulary Medication 2 puff 06/23/25 09:00 Glycopyrrolate-Formoterol [Bevespi Aerosphere] INHALATION 07/23/25 08:59 BID GIOVANNY Pantoprazole Sodium 40 mg 06/16/25 09:00 06/23/25 09:08 Pantoprazole 40 Mg Tablet PO 40 mg QAM GIOVANNY Administration Polyethylene Glycol 17 gm 06/20/25 09:00 06/23/25 09:08 Polyethylene Glycol 3350 17 Gm Powd.Pack PO 17 gm QAM GIOVANNY Administration Sertraline HCl 50 mg 06/16/25 09:00 06/23/25 09:08 Sertraline Hcl 50 Mg Tablet PO 50 mg DAILY GIOVANNY Administration Sodium Chloride 5 ml 06/18/25 20:00 06/23/25 07:43 Sodium Chlor 3% 15 Ml Neb (Respiratory Therapy) INHALATION 5 ml TIDRT GIOVANNY Administration Tamsulosin HCl 0.4 mg 06/21/25 21:00 06/23/25 09:08 Tamsulosin Hcl 0.4 Mg Capsule PO 0.4 mg Q12HR GIOVANNY Administration Tobramycin/Dexamethasone 1 drop 06/15/25 21:00 06/23/25 09:10 Tobramycin/Dexamethasone Op 2.5 Ml Btl EACH EYE 1 drop QID GIOVANNY Administration Trazodone HCl 100 mg 06/15/25 21:00 06/22/25 20:56 Trazodone Hcl 50 Mg Tablet PO 100 mg HS GIOVANNY Administration Umeclidinium/Vilanterol 1 puff 06/23/25 08:00 06/23/25 08:01 Umeclidinium/Vilanterol 62.5-25 Mcg Ellipta INHALATION 1 puff DAILYRT GIOVANNY Administration Radiology Results: ITS Impressions Chest X-Ray 06/20/25 10:11 IMPRESSION: Redemonstration of volume loss within the right hemithorax with adjacent compr essive atelectasis and a small right-sided pleural effusion.
--- NOTE | 2025-06-23 14:11 | P.DS_ITS ---
DS: Admitting Diagnosis Discharge Date 06/23/25 Admitting Diagnosis (1) Essential hypertension: Code(s): I10 - Essential (primary) hypertension Status: Acute (2) Combined systolic and diastolic congestive heart failure: Qualifiers: Heart failure chronicity: acute on chronic Qualified Code(s): I50.43 - Acute on chronic combined systolic (congestive) and diastolic (congestive) heart failure Code(s): I50.40 - Unspecified combined systolic (congestive) and diastolic (congestive) heart failure Status: Acute (3) COPD exacerbation: Code(s): J44.1 - Chronic obstructive pulmonary disease with (acute) exacerbation Status: Acute DS: Discharge Diagnosis Discharge Diagnosis (1) Essential hypertension: Code(s): I10 - Essential (primary) hypertension Status: Acute (2) Combined systolic and diastolic congestive heart failure: Qualifiers: Heart failure chronicity: acute on chronic Qualified Code(s): I50.43 - Acute on chronic combined systolic (congestive) and diastolic (congestive) heart failure Code(s): I50.40 - Unspecified combined systolic (congestive) and diastolic (congestive) heart failure Status: Acute (3) COPD exacerbation: Code(s): J44.1 - Chronic obstructive pulmonary disease with (acute) exacerbation Status: Acute DS: Summary Hospital Course Hospital Course: 80-year-old male past medical history of CHF with reduced ejection fraction, CKD stage 3, COPD, NSTEMI, polio as a child who was recently diagnosed with SNEHA pneumonia presents the hospital with shortness of breath hypoxia. Patient was admitted on 05/30/2025 for shortness of breath found to have pneumonia and with the request pulmonology was transferred to [facility] where he was treated for SNEHA pneumonia and discharged home oxygen. Today he was on 4 L oxygen at home on hypoxic in the 70s whenever EMS found him. His slip cover sewer at [facility] has been contacted and has accepted admission when bed is available however it will be a couple days. Recommendations to keep the patient on his home antibiotic medication for SNEHA. Lab work shows hemoglobin of 9.5 which is around baseline, ABG shows pH is 7.49, pCO2 of 34, PO2 of 76, bicarb 26, on 4 L nasal cannula, sodium 135, alkaline phos of 137, troponin 0.051 followed by 0.014, BUN of 1810, chest x-ray shows worsening bibasilar airspace disease right greater than left pulmonary edema versus pneumonia. EKG was sinus rhythm incomplete right bundle-branch block, QTC 496. Patient given azithromycin, Rocephin, Lasix albuterol and Solu-Medrol in e mergency room. Plan to admit patient in house for SNEHA pneumonia until bed is available at [facility]. The following med issues have been addressed during hospitalization SNEHA (mycobacterium avium-intracellulare): Code(s): A31.0 - Pulmonary mycobacterial infection Status: Acute Assessment and Plan: Continue home antibiotic: ethambutol hcl, rifabutin, acyclovir, Completed levaquin [facility] Vigil evaluated and canceled transfer to [facility] Received Ethambutol, acyclovir, and Rifabutin. Per slip cover sewer, he needs to be on azithromycin 250 mg a day decreased from 500 mg; this is lower due to the dose related hearing loss. Acute on chronic combined systolic (congestive) and diastolic (congestive) heart failure Code(s): I50.40 - Unspecified combined systolic (congestive) and diastolic (congestive) heart failure Status: Acute Assessment and Plan: Acute on chronic received 40 of IV Lasix daily Daily weight Transition to Lasix 40 mg po daily from IV. Compensated * Chronic pulmonary aspergillosis: Code(s): B44.1 - Other pulmonary aspergillosis Status: Acute Assessment and Plan: See plan above * Chronic hypoxic respiratory failure, on home oxygen therapy: Code(s): J96.11 - Chronic respiratory failure with hypoxia; Z99.81 - Dependence on supplemental oxygen Status: Acute Assessment and Plan: Acute on chronic, on 4 L O2 at home found to be 70% on pulse ox by EMS See plan above Solu-Medrol x1 Prednisone Continue Prednisone, which may be the increase in pt's WBC's. (5) Code(s): D72.829 - Elevated white blood cell count, unspecified Status: Acute Assessment and Plan: 06/20/25: * Increase in WBC's to 16.1 from 5.0 yesterday. * Etiology new infection vs. Steroids * CXR negative for new or worsening, UA negative * Trend values HTN (hypertension): Qualifiers: Hypertension type: primary hypertension Qualified Code(s): I10 - Essential (primary) hypertension Code(s): I10 - Essential (primary) hypertension Status: Chronic hyperlipidemia * Continue Atorvastatin (8) Chronic anemia: Code(s): D64.9 - Anemia, unspecified Status: Acute Assessment and Plan: At baseline No signs of acute bleeding CBC in a.m. elevated troponin demand ischemia due to respiratory failure infection Continue nitro, metoprolol, losartan, and aspirin Patient is waiting for placement Time Spent with Patient Time attestation: Total time spent providing and/or coordinating discharge services: Exam Narrative: General: well appearing, appears stated age. HEENT: normocephalic, atraumatic. MMM, patent oropharynx without erythema, edema or exudate. Neck supple without JVD, lymphadenopathy, or bruit. Supple AROM. Respiratory: Coarse lung sounds in all short. Cardiovascular: RRR, S1 and S2 present. No S3, S4, m,r,g,h Abdomen: NT, Soft, BS in all 4 quads. Extremities: No cyanosis, clubbing, or edema present. Pulses are palpable 2/2. Active ROM to all four extremities. Neuro: Alert and orientated x 4. PERRLA. Cranial nerves 2-12 intact without focal deficit. Skin: Warm, dry, and intact, without rash, erythema, or lesion. Psych: Normal affect DS: Data Data Completed and Pending Labs on day of discharge: Preliminary micro results at discharge 06/18/25 07:00 Sputum Culture - Preliminary Sputum Lucia albicans Pseudomonas aeruginosa Discharge Plan Discharge Attending physician on discharge: Bailey Esposito Consulting providers: Ameena Vigil; Marta Lyn Discharging Clinician: Bailey Esposito Anticipated Discharge Date/Time: 06/23/25 14:06 Patient Disposition: Home with Home Health Service Discharge Instructions: Per Care Coordination: Patient to have [facility] at discharge for RN/PT/OT services. Office will call patient to set up initial appointment. Office #[phone]. Patient Instructions: Antibiotic Form, Heart Failure (GEN) Patient Language: Amharic Stand Alone Forms: General Discharge Information Follow-up/Referrals: Ameena Vigil MD [Physician] - (See slip cover sewer at scheduled appointment) Rogelio Moeller DO [Primary Care Provider] - (see pcp in on week ) Discharge Medications: Discontinued levofloxacin 750 mg tablet 750 mg PO DAILY Patient Comments: take for 11 days, started on 06/08/25 No Action acetaminophen [Tylenol Extra Strength] 500 mg tablet 1,000 mg PO Q6H PRN (Reason: Pain) (DME) nebulizer and compressor Device See Rx Instructions .Route Qty: 1 0RF Rx Instructions: As directed (DME) nebulizer accessories Kit See Rx Instructions .Route Qty: 1 0RF Rx Instructions: As directed baclofen 10 mg tablet 10 mg PO Q12H PRN (Reason: muscle spasm) Bevespi Aerosphere 9-4.8 mcg HFA aerosol inhaler 2 puff inhalation BID Qty: 10.7 0RF azithromycin 500 mg tablet 500 mg PO DAILY Breztri Aerosphere 160-9-4.8 mcg/actuation HFA aerosol inhaler 2 inh INHALATION .q12hr ethambutol 400 mg tablet 1,200 mg PO DAILY fenofibrate 160 mg tablet 160 mg PO DAILY losartan 25 mg tablet 25 mg PO DAILY rifabutin 150 mg capsule 300 mg PO DAILY Patient Comments: take for 21 days, started on 06/08/25 morphine 30 mg tablet extended release 30 mg PO Q12H PRN (Reason: pain) tamsulosin 0.4 mg capsule 0.4 mg PO DAILY furosemide 20 mg tablet 40 mg PO DAILY esomeprazole magnesium 20 mg capsule,delayed release(DR/EC) 40 mg PO DAILY aspirin 81 mg Tablet,Delayed Release (Dr/Ec) 81 mg PO DAILY Qty: 90 0RF fenofibrate 160 mg tablet 160 mg PO DAILY Qty: 90 2RF Linzess 290 mcg capsule See Rx Instructions .ROUTE .COMPLEX Qty: 90 3RF Dose Instruction: TAKE 1 CAPSULE BY MOUTH DAILY Rx Instructions: TAKE 1 CAPSULE BY MOUTH DAILY albuterol sulfate 90 mcg/actuation HFA aerosol inhaler 2 puff INHALATION Q4H PRN (Reason: Shortness Of Breath Or Wheezing) Qty: 8.5 5RF nitroglycerin 0.4 mg tablet, sublingual 0.4 mg sublingual Q5M PRN (Reason: chest pain) Qty: 25 3RF Rx Instructions: do not exceed 3 doses per episode albuterol sulfate 2.5 mg /3 mL (0.083 %) solution for nebulization 2.5 mg inhalation Q4H PRN (Reason: shortness of breath or wheezing) Qty: 90 3RF bupropion HCl 150 mg tablet sustained-release 12 hr 150 mg PO BID Qty: 180 2RF metoprolol succinate 50 mg tablet extended release 24 hr 50 mg PO HS Qty: 90 1RF lorazepam 0.5 mg tablet 0.5 mg PO BID PRN (Reason: anxiety) Qty: 60 3RF tobramycin-dexamethasone 0.3-0.1 % drops,suspension 1 drp EACH EYE QID Qty: 10 0RF sulindac 200 mg tablet 200 mg PO BID Qty: 180 1RF atorvastatin 80 mg tablet 80 mg PO DAILY Qty: 90 1RF sertraline 50 mg tablet 50 mg PO DAILY Qty: 90 3RF benzonatate 200 mg capsule See Rx Instructions .ROUTE .COMPLEX Qty: 90 0RF Dose Instruction: TAKE 1 CAPSULE BY MOUTH THREE TIMES DAILY NEEDED FOR COUGH Rx Instructions: TAKE 1 CAPSULE BY MOUTH THREE TIMES DAILY NEEDED FOR COUGH acyclovir 400 mg tablet 400 mg PO TID Qty: 21 0RF hydroxyzine HCl 25 mg tablet 25 mg PO QID PRN (Reason: anxiety) Qty: 50 2RF trazodone 100 mg tablet 100 mg PO HS Qty: 90 1RF Date of admission: 06/15/25 15:46 Primary Care Provider: Rogelio Moeller Admitting Provider: Sinan Rock Attending physician on admission: Sinan Rock Condition: Serious
--- NOTE | 2025-06-23 14:34 | PCRCNOTE ---
SPOKE WITH FEDERICO FROM [facility] REGARDING VEST THERAPY. HE WILL BE IN CONTACT WITH DR. DEAN TO DETERMINE PT NEEDS AND SET UP IF NECESSARY.
--- NOTE | 2025-06-23 16:00 | PC.NURSE ---
Provider called to notify that home meds need to be addressed before the pt can be discharged. Provider stated he will take care of it.
--- NOTE | 2025-06-23 16:32 | P.PNPL_ITS ---
Progress Note: A&P Assessment and Plan (1) Chronic obstructive pulmonary disease: Code(s): J44.9 - Chronic obstructive pulmonary disease, unspecified Status: Acute Assessment and Plan: Gold grade 2 group E COPD; CT scan with panlobular emphysema and bronchiectasis on June 01, 2025 CT Testing; 04/28/2025: Home O2 assessment: Final recommendation was 2 L at rest and 5 L with activity. Home management is Bevespi (glycopyrrolate-formoterol, NO ICS) hx of Pseudomonas aeruginosa on 10/10/2021 and 04/26/2025; Alcaligenes xylosoxidans sensitive to meropenem and Septra, intermediate to Zosyn, resistant to ceftaz, levofloxacin and imipenem. * alpha 1 anti-trypsin genotype MM, [id number] apical predominant centrilobular and paraseptal emphysema on his CT scan from 10/11/2021 * 12/16/2023 PFT; mild obstruction with FEV1 68%, ratio 61%. No bronchodilator response, hyperinflation, severely decreased DLCO the remains mildly decreased when adjusted for alveolar volume. Compared to 01/01/2022 had been a significant decrease in the FVC, FEV1, total lung capacity, functional residual capacity and diffusing capacity. PMH: COVID pneumonia on 09/10/2021, 11/13/2023 treated with Paxlovid, rebound symptoms treated with clarithromycin and doxycycline. Recurrent pneumonias; 02/25/2024 for pneumonia with sputum showing Haemophilus treated with steroids. 10/04/2024: White blood cell count 11.1 eosinophils 3.2%=355/uL. Eosinophils elevated. (2) SNEHA (mycobacterium avium-intracellulare): Code(s): A31.0 - Pulmonary mycobacterial infection Status: Acute Assessment and Plan: SNEHA in sputum, multiple pulmonary infections requiring antibiotics on many date during 2023 and 2024. He saw Kenisha OSWALD on May 02 while inpatient at [facility], was started on current regimen without azithromycin due to hearing loss; he is on rifabutin 300 mg a day, ethambutol 1200 mg a day. SNEHA always requires 3 medications, so he will need something to replace azithromycin. Ina with the ID team called today, said that he needs ot be on azithromycin 250 mg a day decreased from 500 mg; this is lower due to the dose related hearing loss. He will continue rifabutin 300 mg and EMB 1200 mg. Follow up appointment at [facility] ID June 27. I restarted azithromycin 250 mg on Jun 23. (3) History of tobacco use: Code(s): Z87.891 - Personal history of nicotine dependence Status: Acute Assessment and Plan: History of 60-80 pack years, none since 2018. (4) Hearing loss: Qualifiers: Hearing loss type: unspecified Laterality: unspecified laterality Qualified Code(s): H91.90 - Unspecified hearing loss, unspecified ear Code(s): H91.90 - Unspecified hearing loss, unspecified ear Status: Acute Assessment and Plan: Sudden noticeable loss of hearing particularly in the left ear over the last week, moderately improved with some fluctuation over the last few days since stopping azithromycin 500 mg several days. The right ear has been not functioning well for several years but the left ear suddenly has worsen. He is on medicines for SNEHA for the last 6 weeks. plan: Restart azithromycin 250 mg a day Jun 23. This is for his SNEHA regimen. He will need outpatient audiology testing. Plan plan: 1) Restart azithromycin 250 mg a day, lower dose, now that he has completed Levaquin. This recommendation came from his ID team at [facility]. Hearing is better compared to admission. We stopped the azithromycin 500 mg. He has an appt with his ID doctors Jun 27. He needs hearing testing as an out patient. 2) Continue BuSpar low dose for anxiety. 3) He grew moderate Pseudomonas in sputum from 06/18/25. He was on Levaquin through 06/20, 5 days. This is sufficient for CAP. The Lucia in the sputum is not a pathogen that needs treatment. 4) He is going home with a BiWaze device, alternative to vibratory vest which he can use at home. This was set up through [facility], and he will be able to add this to his Cornet valve to use at home for pulmonary hygiene. 5) Continue deep breathing, use his PAP valve 10 exhales t.i.d with 3% saline 2 ml, albuterol neb t.i.d. Continue valve after discharge. Encourage coughing and expectoration. He was not doing this at home right before this admission. He will have to do this even when nobody is watching and coaching him. This is a central aspect of his self care, and he needs to do this 3-4 times a day. 6) He needs nebulized bronchodilator for his machine at discharge. He reported that he does not have any albuterol currently however he does have a nebulizer. Add albuterol to his home medications. 7) Pulmonary meds: Azithromycin 250 mg daily for SNEHA treatment. Rifabutin 300 mg a day - SNEHA Ethambutol 1200 a day - SNEHA Bevespi 2 puffs b.i.d. has no ICS. Albuterol 0.83% in nebulizer t.i.d. p.r.n. shortness of breath. O2 to maintain sat 90-94% on O2. He can follow up in our pulmonary office in 3-4 weeks. Subjective Date/time seen: 06/23/25 16:32 Interval history: 06/17/2025; new consult; Russell Morse is an 80-year-old man with SNEHA infection, COPD, returns to the ER with shortness of breath and hypoxia. He was recently admitted on 05/30/2025 for same conditions, was transferred to [facility] from 06/04 to 06/08, went home on Levaquin to complete 750 mg po on June 18. He was also on SNEHA treatment including azithromycin 500 mg/day, Rifabutin 300 mg/day, ethambutol 1200 mg/ day. Sim said that the patient went home but was very weak, could not even walk to the bathroom easily. He and his have been taking off work to care for him at home because he now cannot do almost any self care. He cannot get to the bathroom by himself. With walking to the bathroom on his usual 4 L his saturation is dropping to 79-82%. He can not get to the kitchen by himself. He was supposed to start outpatient therapy this week but was readmitted quickly so this did not happen. Marco tells me that his father had a recent significant loss of hearing in the left ear. He has had hearing loss in the right ear for years. His CXR June 15 is worse compared to his May 30 CXR. He has increased infiltrate and consolidation in the right base. 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 Family hx: Brothers had COPD 8 years ago; pt, lives with son Marco and his , is alone in the day; sometimes daughter Sadia comes over, 17 hours a week, O2: has been on 2-3 years, wanted to be on it, was sneaking it from his who had severe lung disease. June 19, 2025; follow up; Hearing better since the azithromycin was stopped. He is using the vibratory vest and Cornet valve. I increased the resistance on the Cornet to 3rd level. He says that he has one like it at home, does not use it. He is coughing small amounts of sputum. On nasal cannula 4 L, saturation is 93%. This is acceptable oxygenation. He has required O2 at 4 L during a 2020 admission. I spoke with his son about the PT/OT note. The patient was evaluated and probably is not going to meet criteria to get into rehab at discharge. It is possible that when the patient is supported in the hospital, he puts forth a lot of effort, has ability to walk distances and perform tasks that he will not do at home. His daughter is a paid caregiver for him, and he might not want the challenge of exercising at home. I told his son that the more you move, the farther away from the grave you stay and his dad has to want to do these activities for himself, including pulmonary hygiene, nebulized treatments, mucolytics, exercise, and keeping a schedule. He needs a routine. Gram stain today showed few epithelial cells, many Gram negative rods. June 21, 2025; follow up; I spoke with Ina from the ID clinic; she collaborat ed with Dr Angie santos robbins plan for a lower dose of azithromycin, 250 mg a day. His hearing loss was likely dose related, and continuing azithromycin at a lower dose is the best option.The patient says that his hearing overall if better, still fluctuates some. He has an appt with the ID clinic Jun 27. He feels better overall, still wants to go to rehab at discharge, does not understand why he cannot do this. I explained that his physical capability is better than he appreciates, and he does not need to have rehab in a facility. He is totally able to have exercise and pulmonary hygiene at home. He will need to work with his daughter, Sadia, to perform the exercises and use his Cornet valve at home to maintain improved airway clearance and to build strength. Like home schooling, he needs to have a schedule, a plan, and needs to track his progress. If he does not participate, SNEHA can worsen, and this is a fatal disease. wbc today is 10k. His sputum from 06/18/25 grew Lucia, not a pathogen, but a message that he has been on many antibiotics. 06/22/2025: follow up; He is sitting up in bed comfortably, on his cellphone. Sat is 96% on 4 L/min, O2 can be weaned. His oxygenation is improving on the same amount of oxygen so this is overall a good response to therapy. He had physical therapy today. The patient tells me he is very worried about going to a place like [facility] because he is not sure that he will be able to walk to the dining page. He also tells me that he is not really getting the therapy that he needs here. I looked in the chart and saw that he has work with OT and PT regularly. I do not know if he can not remember working with them or if he does not want to go to [facility], would prefer to go home where his daughter will do more things for him. During physical exam his chest had scattered rhonchi. I asked him to below on the Cornet valve 10 times and this helped move his secretions. He is able to expectorate mucus. I told him that he will have to blow into the Cornet 10 exhalations even when there is not somebody standing over him monitoring him. He is getting T id vibratory vest with 3% saline, Mucomyst and RT helping with deep breathing. He needs to be using the Cornet valve in between these treatments. Jun 23, 2025. His sputum shows moderate growth of Pseudomonas aeruginosa (recurrent) and Lucia. He feels much better, waiting for his son, Marco, to take him home today. I completed the necessary forms for him to get BiWaze, an oscillatory PEP Nebulizer Therapy for bronchiectasis associated with COPD and SNEHA infection. He has tried flutter valve which is not been adequate by itself to mobilize secretions and reduce recurrent lung infections. He has required antibiotics for lung infections on: 02/25/2024, 04/10/2024, 09/08/2024, 10/04/2024, 11/04/2024, 11/20/2024, 12/02/2024, 03/02/2025, 04/25/2025, 05/12/2025, 05/22/2025, 05/30/2025 and 06/15/2025. 12/15/2024 sputum with AFB verified on 01/14/25 and grew SNEHA on 03/03/25. Sensitivities 03/20/25. On 03/20/25 patient referred to [facility] with appointment scheduled for 05/02/2025. Sputum on 12/16/2024 with AFB verified on 01/20/25 and grew SNEHA on 02/01/25.?Sensitivities 03/28/25. Chest CT 06/01/25 Varicose bronchiectasis is present within the bilateral lower lobes. 2024 admissions: * 05/30/2025 [place] admission shortness of breath; transferred to [facility] 06/04 to 06/07; discharged on Levaquin to continue until June 18; continue SNEHA meds * 05/12/2025, ER visit, shortness of breath, home. * 04/25/25 -04/28/25; admitted Rob respiratory distress, hypoxemia, transferred to [facility]; ID saw him 05/02/25; SNEHA; started Rx w azithromycin 500 mg/D, Rifabutin 300 mg/D, ethambutol 1200 mg/ day initial sputum with SNEHA was 12/16/2024 with AFB verified on 01/20/25 and grew SNEHA on 02/01/25.?Sensitivities 03/28/25. QuantiFERON gold was negative on 01/24/25. ORGANISM: MYCOBACTERIUM AVIUM COMPLEX AMIKACIN: 16 S mcg/mL AMIKACIN (LIPOSOMAL, INHALED): 16 S mcg/mL CIPROFLOXACIN: >8 mcg/mL CLARITHROMYCIN: 2 S mcg/mL CLOFAZIMINE: 0.25 mcg/mL DOXYCYCLINE: >8 mcg/mL LINEZOLID: 16 I mcg/mL MINOCYCLINE: >8 mcg/mL MOXIFLOXACIN: 4 R mcg/mL RIFABUTIN: 1 mcg/mL RIFAMPIN: >4 mcg/mL STREPTOMYCIN: >32 * This is a corrected result. * A prior result that was reported as final has been changed. 1. Mycobacterium avium complex M.I.C. RX --------- --- Rifampin AFB >4 S Streptomycin AFB R Amikacin AFB 16 S Moxifloxacin AFB R 03/02/2025 patient with increased phlegm production and treated for bronchitis with Septra DS 2 tablets twice a day x 7 days. PMH: CHF with reduced ejection fraction, CKD stage 3, COPD, NSTEMI, polio as a child; recent SNEHA pneumonia DATA * 06/15/2025; CXR; IMPRESSION: Worsening bibasilar airspace disease, right greater than left. This may be the result of pulmonary edema versus pneumonia in appropriate clinical settings. Clinical correlation is recommended. Short-term follow-up chest radiograph is recommended after appropriate clinical therapy to document resolution. May 30, 2025 ; CXR: Small right pleural effusion present. There is worsening hazy and interstitial disease in the right lung base and right midlung. Possible minimal haziness left lung base. Cardiomediastinal silhouette is stable. Bones and soft tissues are unremarkable. Impression: Probable mild pulmonary edema, worse in the right lung than left, versus possibly pneumonia. Correlate clinically. Small right pleural effusion. May 30, 2025 Below is information from prior admissions 04/26/2025: This is a new pulmonary consult for COPD and MAC. 80-year-old with a history of coronary artery disease status post non ST elevation [place] August of 2019, ischemic cardiomyopathy, hypertension, hyperlipidemia, Gold grade 2 group B COPD on home oxygen 7 L at rest, with activity and with sleep and MAC lung disease. Regarding his COPD, patient with 60 pack year tobacco use quit in 2019, alpha 1 anti trypsin genotype MM, [id number] apical predominant centrilobular and paraseptal emphysema on his CT scan from 10/11/2021. Of note he has had COVID pneumonia on 09/10/2021 and Pseudomonas aeruginosa on 10/10/2021, and 04/26/2025. His PFTs from 12/16/2023 show mild obstruction with FEV1 68%, ratio 61%. No bronchodilator response, hyperinflation, severely decreased DLCO the remains mildly decreased when adjusted for alveolar volume. Compared to 01/01/2022 had been a significant decrease in the FVC, FEV1, total lung capacity, functional residual capacity and diffusing capacity. When admitted for pneumonia had an ABG on 02/25/2024 on 3 L nasal cannula 7.44/36/67. 10/04/2024: ABG on 2 L 7.43/41/75. 10/04/2024: White blood cell count 11.1 eosinophils 3.2%=355/uL. 04/09/2024 white blood cell count 11.1, eosinophils 0.4%=44/uL. Tested positive for COVID 11/13/2023 treated with Paxlovid, rebound symptoms treated with clarithromycin and doxycycline. Hospitalize 02/25/2024 for pneumonia with sputum showing Haemophilus treated with steroids. Hospitalized 04/10/24 to 04/12/24 for COPD exacerbation treated with prednisone and azithromycin. 09/08/2024 cold symptoms, treated with doxycycline and prednisone taper. 10/04/2024 ED visit for shortness of breath treated for fluid overload and COPD exacerbation with prednisone and Augmentin. 11/04 admitted to [facility] with congestive heart failure and pneumonia no evidence of COPD exacerbation. 11/20 admitted to [facility] for shortness of breath, fluid overload and possible pneumonia. 12/02/2024 through 12/06/2024 admitted to [facility] treated for pneumonia. sputum from 12/17/2024 grew out Alcaligenes xylosoxidans sensitive to meropenem and Septra, intermediate to Zosyn, resistant to ceftaz, levofloxacin and imipenem. 03/02/2025 patient with increased phlegm production and treated for bronchitis with Septra DS 2 tablets twice a day x 7 days. 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 Sputum on 12/15/2024 with AFB verified on 01/14/25 and grew SNEHA on 03/03/25. Sensitivities 03/20/25. On 03/20/25 patient referred to [facility] with appointment scheduled for 05/02/2025. Sputum on 12/16/2024 with AFB verified on 01/20/25 and grew SNEHA on 02/01/25. Sensitivities 03/28/25. QuantiFERON gold was negative on 01/24/25. Patient was treated for bronchitis on 03/02/2025 and improved with Septra. He was at his baseline which is dyspnea on exertion at 50-75 feet. He is using 7 L at rest, with saturations 95-97% at home. He is using 7 L with activity with saturations 92%. He is using 7 L at night. He typically has no daily fevers. He coughs phlegm 2 times a day which is described as lynn. Patient tells me he was at his baseline on 04/24/2020 5. On 04/25/2025 he developed a fever, increased cough, worsening dyspnea on exertion with the same amount of phlegm. Family reported some confusion. He was brought to the emergency department. 04/25/25 through 04/28/2025: admitted to [facility] for respiratory distress and hypoxemia. I spoke with the emergency room physician and requested that he be transferred to [facility] said he could be evaluated by an Infectious Disease team which we do not have at [facility]. Patient was referred to [facility] but no beds were available. In the meantime I recommended ceftriaxone, azithromycin and Septra. 04/26/25: a CT angiogram of the chest: I have compared this to CT scans from 11/20/2024 and 08/29/2024 and 02/25/2024. Current CT shows no PE, worsening consolidation and infiltrates in th e right lower lobe compared to 11/20/2024 and 02/25/2024. Compared to CT scan on 02/25/2024 currently there are some areas of improved consolidation in the right lower lobe and some different areas with worsening consolidations in the right lower lobe. There is unchanged consolidation in the posterior left lower lobe with no change compared to 11/20/2024, 08/29/2024 and that have improved f rom 02/25/2024. Currently there are patchy consolidations in the right middle lobe some which were present on 11/20/2024 and some that are new. There were no infiltrates on 08/29/2024 in the right middle lobe. Modified barium swallow normal. Sputum has grown out normal [place]ico. 04/28/2025: Home O2 assessment: Final recommendation was 2 L at rest and 5 L with activity. discharged on cefdinir x3 days, azithromycin x2 days, Septra 2 tablets p.o. b.i.d. x3 days, but of SP, guaifenesin 1200 b.i.d., Lasix 20 p.o. q.day, 4 L at night. After discharge respiratory pathogen panel was positive for human metapneumovirus. He was to be evaluated with [facility] on 05/02/2025. sputum for AFB collected on 04/27/2025 and 04/28/2025. 05/02/2025: Patient was seen at [facility] infectious Disease Clinic. We have contacted the clinic multiple times to get the note and have been unsuccessful. The patient tells me he has no idea what they said or recommended other than to follow-up in July. 05/12/2025: Seen in the emergency department for progressively worse shortness of breath, sputum production, BNP 3300, COVID, influenza, RSV RT PCR negative. ABG 7.39/40/88 on 2 L nasal cannula. prescribed Septra 1 tablet p.o. q.12 hours x7 days 05/22/2025: Patient called his PCP coughing all day with a little bit of phlegm raspy throat. levofloxacin 750 q.day prescribed X 10 days. 05/29/25: I spoke to the patient and usually is on 2 L at rest and 5 with activity. I spoke to the patient today and he is on 4-5 L at rest with saturations 87%. His saturations with 5 L activity are in the mid 80s. He says he has not gained weight and is not swollen. He has finished 10 days of antibiotics through his PCP. I recommended the patient be evaluated in the emergency department and I recommended that he go to [facility] emergency department so that he could be evaluated by their Pulmonary team and their Infectious Disease team. He voiced understanding. 05/30/2025: Patient presented to [facility] ED with complaints of shortness of breath, exertional hypoxemia. He finished his outpatient Levaquin today. blood pressure 112/47, heart rate 79, saturation 96% on 4 L nasal cannula. Afebrile, creatinine 1.13. White blood cell count 11.8. I spoke to the emergency room and recommended he be transferred to [facility] to be evaluated by the Infectious Disease team and pulmonary team. Patient was accepted but no beds available. MRSA swab negative. Started on ceftriaxone, azithromycin and Septra. Patient given Lasix 40 IV x1. 05/31/2025: Currently the patient tells me he is breathing at his baseline at rest. He has worsening dyspnea on exertion. His cough and phlegm production or better than yesterday. He denies fever, chills, rigors, sweats. He has no hemoptysis. He has no worsening orthopnea, he has stable nocturia every 2 hours at home. When I enter the room he was on 5 L nasal cannula saturations 99%. I decreased him to 4 L nasal cannula saturations were 94%. I decreased him to 2 L nasal cannula saturations were 92%. DATA 04/26/2025: EXAMINATION: CTA chest PE protocol DATE: 04/26/2025 13:46 CDT INDICATION: Shortness of breath TECHNIQUE: Computed tomographic angiography (CTA) of the chest was performed with 100 mL Omnipaque-350 intravenous contrast. The dose-length product was 256.22 mGy-cm. Maximum intensity projection 3D-reconstructions of the aorta and other arteries were constructed by the technologist on a separate workstation. Automated exposure control and iterative reconstruction technique were employed. COMPARISON: Chest x-ray dated 04/25/[address] dated 11/20/2024. FINDINGS: Small right pleural effusion. Trace left pleural effusion. There is mediastinal lymphadenopathy. There is right hilar lymphadenopathy. There is atherosclerosis of the aorta and coronary arteries. Small hiatal hernia. Heart size normal. Pulmonary arteries are enlarged, consistent with pulmonary hypertension. Study is technically adequate without evidence for pulmonary embolism. There is patchy bilateral airspace disease of the right upper, right middle and bilateral lower lobes, consistent with multifocal pneumonia. No endobronchial lesions. There is emphysema. No suspicious pulmonary nodules or masses. Mild thoracic spondylosis. No focal lytic or blastic lesions. IMPRESSION: 1. Multifocal airspace disease, consistent with pneumonia. 2: Bilateral pleural effusions, right greater than left. 3: Mediastinal lymphadenopathy, likely reactive. 4.: Pulmonary artery enlargement, consistent with pulmonary hypertension. 5: Emphysema. My read: I have compared this to CT scans from 11/20/2024 and 08/29/2024 and 02/25/2024. Current CT shows no PE, , Small right pleural effusion, worsening consolidation and infiltrates in the right lower lobe compared to 11/20/2024 and 02/25/2024. Compared to CT scan on 02/25/2024 currently there are some areas of improved consolidation in the right lower lobe and some different areas with worsening consolidations in the right lower lobe. There is unchanged consolidation in the posterior left lower lobe with no change compared to 11/20/2024, 08/29/2024 and that have improved from 02/25/2024. Currently there are patchy consolidations in the right middle lobe some which were present on 11/20/2024 and some that are new. There were no infiltrates on 08/29/2024 in the right middle lobe. 01/02/25: Modified barium swallow: Impression: Moderate dysphagia 11/20/24: EXAMINATION:. Recommendations: Regular but easy to chew diet with regular liquids but patient must use chin tuck posture with all eating and drinking to prevent pharyngeal residual and instances of laryngeal penetration and aspiration. He was referral to outpatient speech therapy. 12/14/24: CRP 3.6, ESR 134, CPK 43, Aspergillus Niger IgE 0.31, very low level. Aspergillus Niger antibody negative, Aspergillus flatus antibody negative. Aspergillus fumigatus antibody negative. Rheumatoid factor 12.9, anti CCP antibody less than 16. TERRA screen positive with an anti-DNA antibody 27 (positive greater than 10), Anca screen negative, hypersensitivity pneumonitis panel negative. 01/24/2025: QuantiFERON gold negative. IgE 691 normal less than 114, rheumatoid factor 12.9. IgG 693, IgM 90, IgA 212, all normal. Aldolase 5.0 CTA chest PE protocol INDICATION: Hypoxia elevated d-dimer COMPARISON: 08/29/2024 and 10/11/2021. FINDINGS: No filling defects within the main or proximal pulmonary arteries. The thoracic aorta is unremarkable. No aneurysmal dilatation or dissection. The heart is of normal size, without pericardial effusion. Panlobular emphysematous disease is identified. Patchy groundglass opacification detected bilaterally. Small bilateral pleural effusions with adjacent compressive atelectasis Multiple subcentimeter areas of decreased attenuation within the liver, unchanged dating back to 10/11/2021. IMPRESSION: No pulmonary embolus. No aneurysmal dilatation or dissection within the thoracic aorta. Small bilateral pleural effusions with adjacent compressive atelectasis. 08/16/2024: Overnight oximetry on 3 L nasal cannula. The report in the computer status overnight oximetry on room air but this is mislabeled as the test was performed on 3 L. Recording duration 8 hours and 39 minutes. Basal saturation 92.1%. High saturation 96%. Low saturation 79%. Time with saturation less than or equal to 88% was 4 minutes and 58 seconds. I will continue oxygen 3 L at night. 06/24/2024: This is a 6 minute walk test. The test was performed and interpreted in accordance with the 2014 ERS/ATS task force guidelines. Of note, patient used to wheeled walker for stability and the testing was performed on his home portable oxygen concentrator at 3 L with pulse dose. Findings: The patient's resting 3 L oxygen saturation measured by pulse oximetry was 95% and heart rate was 80 bpm. Patient ambulated for 137 meters and oxygen saturation remained 91 to 92%. Heart rate at the end of the study was 94 bpm. The patient did not have rest or exertional hypoxemia on 3 L nasal cannula pulse dose with his portable oxygen concentrator. 02/25/24 - CTA chest (ER) - No PE identified. 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 There is patchy consolidation in the right middle and bilateral lower lobes with additional regions of tree-in-bud opacity scattered throughout both lungs consistent with multifocal pneumonia. There is associated bronchial wall thickening and mucous plugging in the bilateral lower lobes. Tiny left pleural effusion. No septal line thickening to suggest pulmonary edema. No pneumothorax. Mild cardiomegaly. Atherosclerotic coronary artery calcifications. No pericardial effusion. 02/25/2024: ABG on 4 L cannula 7.39/35/63 01/15/24 - Home O2 eval - Required 2L/min O2 with ambulation and none at rest. 12/16/23 - PFT The test was performed and results interpreted in accordance with the 2019 and 2005 ATS/ERS Task Force guidelines respectively using the Global Lung Function Initiative-2012 reference equations. Patient demonstrated good effort and cooperation. Reproducibility criteria were met. The quality of the pre bronchodilator spirometry maneuver was Grade A and post bronchodilator spirometry maneuver was Grade A. Findings: Spirometry: There is decreased maximal expiratory airflow at all lung volumes with concave expiratory flow tracing. The contour the inspiratory flow tracing is normal. The pre bronchodilator FVC is 3.33 L, 82% predicted. The pre bronchodilator FEV1 is 2.02 L, 68% predicted. The pre bronchodilator FEV1: FVC ratio 61%. The post bronchodilator FVC is 3.41 L, representing a 2% increase. The post bronchodilator FEV1 is 2.09 L, representing a 3% increase. The post bronchodilator FEV1: FVC ratio 61%. Plethysmography: The total lung capacity is 6.43 L, 89% predicted. The functional residual capacity is 4.14 L, 106% predicted. The residual volume is 3.10 L, 115% predicted. The residual volume: Total lung capacity ratio is 48%. Diffusing capacity: The diffusing capacity unadjusted for hemoglobin and carboxyhemoglobin is 9.0, 37% predicted. The diffusing capacity adjusted for alveolar volume is 2.29, 64% predicted. Comparison to previous pulmonary function testing on 01/01/2022 the post bronchodilator FVC has decreased from 4.38 L to 3.41 L. The post bronchodilator FEV1 has decreased from 3.11 L to 2.09 L. the total lung capacity is decreased from 7.39 L to 6.43 L. The functional residual capacity has decreased from 4.95 L to 4.14 L. The residual volume is unchanged from 2.93 L to 3.10 L. The diffusing capacity unadjusted for hemoglobin and carboxyhemoglobin is decreased from 14.9 to 9.0. The diffusing capacity adjusted for alveolar volume decreased from 2.63 to 2.29 Impression: There is a mild obstructive abnormality. There is no significant improvement after inhaling a single dose of albuterol. The increase in residual volume to total lung volume ratio is consistent with hyperinflation from an obstructive abnormality. The diffusing capacity unadjusted for hemoglobin and carboxyhemoglobin is severely decreased and remains mildly decreased when adjusted for alveolar volume. Compared to prior pulmonary function testing on 01/01/2022 there has been a significant decrease in the FVC, FEV1, total lung capacity, functional residual capacity and diffusing capacity with no significant change in the residual volume. 09/16/23 - Home O2 eval - Required 2L/min O2 with ambulation and none at rest. 01/01/22 - Home O2 eval - Patient did not require supplemental oxygen at rest or with exertion. 01/01/22 - PFTs - Mild obstructive abnormality with normal FEV1 without significant improvement after inhaling a single dose of albuterol. Lung volumes normal. The diffusing capacity unadjusted for hemoglobin is moderately decreased and normalizes when adjusted for alveolar volume. 12/18/21 - Overnight oximetry on room air - Time with saturation less than or equal to 88% was 4.0 minutes. Patient does not qualify for supplemental oxygen at night. 10/10/2021 - ABG on 4L NC - 7.44/43/70. 10/20/21 - Chest XR - Persistent patchy bilateral airspace disease with possible improvement in the left lung, compatible with pneumonia. 10/11/2021 - CTA chest - Extensive bilateral pulmonary infiltrates and likely reactive hilar or mediastinal adenopathy. Small right pleural effusion. No evidence of pulmonary embolism. 10/11/2021 - Echo - LV systolic function mildly reduced, EF 45-50%. Grade I diastolic dysfunction. The inferior wall, inferoseptal wall, basal inferolateral wall, and mid inferolateral wall are hypokinetic. Mild LA enlargement. No pulmonary hypertension. Review of Systems Review of Systems: All systems reviewed & are unremarkable except as noted in HPI and below Exam Narrative: GEN: Alert, oriented, not in distress. His hearing appears better, Nasal cannula O2 3 L/min -> sat 99%, can be weaned. He has Breathe Right nasal strips on the bridge of his nose due to right nostril collapsing easily. This has been a problem for years. HEENT: pupils are equal, EOMI, symmetrical face; oral membranes parched, upper and lower dentures NECK: Trachea is midline, prior jaw surgery CHEST: Equal air entry,few rhonchi, he is clearing some secretions better. CV: distant S1S2 no m/g/r Extremities : no clubbing, cyanosis, or edema; left foot is weak; PSYCH: Hearing is better compared to admission. Objective Data Vital Signs Vital Signs: Vital Signs - 24 hr 06/22/25 19:57 06/22/25 20:00 06/22/25 20:05 Temperature Pulse Rate 77 76 Respiratory Rate 18 14 Blood Pressure Pulse Oximetry 98 95 Oxygen Delivery Nasal Cannula Nasal Cannula Oxygen Flow Rate 4 4 Fraction of Inspired Oxygen 36 06/22/25 20:13 06/22/25 20:56 06/22/25 21:23 Temperature 36.1 C L Pulse Rate 75 76 76 Respiratory Rate 18 14 Blood Pressure 110/43 L Pulse Oximetry 98 Oxygen Delivery Oxygen Flow Rate Fraction of Inspired Oxygen 06/23/25 01:45 06/23/25 01:55 06/23/25 05:44 Temperature 36.4 C Pulse Rate 72 70 64 Respiratory Rate 18 18 14 Blood Pressure 132/52 L Pulse Oximetry 98 Oxygen Delivery Oxygen Flow Rate Fraction of Inspired Oxygen 06/23/25 07:45 06/23/25 07:45 06/23/25 08:00 Temperature Pulse Rate 64 64 Respiratory Rate 20 20 Blood Pressure Pulse Oximetry 99 99 Oxygen Delivery Nasal Cannula Nasal Cannula Oxygen Flow Rate 4 3 Fraction of Inspired Oxygen 06/23/25 08:07 06/23/25 13:50 06/23/25 14:51 Temperature 35.9 C L Pulse Rate 98 70 72 Respiratory Rate 20 17 20 Blood Pressure 98/50 L Pulse Oximetry 94 Oxygen Delivery Oxygen Flow Rate Fraction of Inspired Oxygen 06/23/25 14:51 06/23/25 15:07 Temperature Pulse Rate 72 73 Respiratory Rate 20 20 Blood Pressure Pulse Oximetry 95 Oxygen Delivery Nasal Cannula Oxygen Flow Rate 4 Fraction of Inspired Oxygen Intake/Output Intake/Output: Intake & Output 06/20/25 06/21/25 06/22/25 06/23/25 23:59 23:59 23:59 23:59 Intake Total 720 1677 1600 780 Output Total 1350 1375 2100 500 Balance -630 302 -500 280 Meds/Results Medications: Active Medications Generic Name Dose Route Start Last Admin Trade Name Freq PRN Reason Stop Dose Admin Acetaminophen 650 mg 06/15/25 18:22 06/22/25 20:57 Acetaminophen 325 Mg Tablet PO 650 mg Q4H PRN Administration Mild Pain (1-3) or Fever Acetylcysteine 400 mg 06/17/25 20:00 06/23/25 14:50 Acetylcysteine 20% Inhal Soln 800 Mg/4 Ml Vial INHALATION 400 mg TIDRT GIOVANNY Administration Albuterol/Ipratropium 3 ml 06/15/25 20:00 06/23/25 14:50 Ipratropium 0.5 Mg/Albuterol Sulfate 2.5 Mg Ampul.Neb 3 Ml INHALATION 3 ml Q6HRT GIOVANNY Administration Aspirin 81 mg 06/16/25 09:00 06/23/25 09:08 Aspirin 81 Mg Enteric Tablet PO 81 mg DAILY GIOVANNY Administration Atorvastatin Calcium 80 mg 06/16/25 09:00 06/23/25 09:07 Atorvastatin 40 Mg Tablet PO 80 mg DAILY GIOVANNY Administration Azithromycin 250 mg 06/23/25 09:00 06/23/25 09:08 Azithromycin 250 Mg Tablet PO 250 mg DAILY GIOVANNY Administration Baclofen 10 mg 06/15/25 18:01 Baclofen 10 Mg Tablet PO Q12H PRN muscle spasm Benzonatate 200 mg 06/16/25 09:00 Benzonatate 100 Mg Capsule PO TID PRN Cough Bupropion HCl 150 mg 06/16/25 21:00 06/23/25 09:08 Bupropion Hcl Sr (12 Hr) 150 Mg Tab PO 150 mg Q12HR GIOVANNY Administration Buspirone HCl 2.5 mg 06/17/25 21:00 06/23/25 09:08 Buspirone Hcl 2.5 Mg Tablet PO 2.5 mg Q12HR GIOVANNY Administration Docusate Sodium 100 mg 06/16/25 09:00 06/23/25 09:07 Docusate Sodium 100 Mg Capsule PO 100 mg BID GIOVANNY Administration Enoxaparin Sodium 40 mg 06/16/25 09:00 06/23/25 09:10 Enoxaparin 40 Mg/0.4 Ml Syringe SUB-Q 40 mg DAILY GIOVANNY Administration Ethambutol HCl 1,200 mg 06/16/25 09:00 06/23/25 09:07 Ethambutol Hcl 400 Mg Tablet PO 1,200 mg DAILY GIOVANNY Administration Fenofibrate 145 mg 06/16/25 09:00 06/23/25 09:08 Fenofibrate Nanocrystallized 145 Mg Tablet PO 145 mg QAM GIOVANNY Administration Furosemide 40 mg 06/21/25 09:00 06/23/25 09:08 Furosemide 40 Mg Tablet PO 40 mg DAILY GIOVANNY Administration Lorazepam 0.5 mg 06/15/25 18:01 06/19/25 20:40 Lorazepam (*Crx) 0.5 Mg Tablet PO 0.5 mg BID PRN Administration anxiety Losartan Potassium 25 mg 06/16/25 09:00 06/23/25 09:08 Losartan Potassium 25 Mg Tablet PO 25 mg DAILY GIOVANNY Administration Metoprolol Succinate 50 mg 06/15/25 21:00 06/22/25 20:56 Metoprolol Succinate Ext Rel 50 Mg Tabcr PO 50 mg HS GIOVANNY Administration Miscellaneous Information 1 each 06/23/25 00:01 Bevespi Is Nonform And Auto-Subs To Anoro Ellipta, Pt Is Already On Anoro Ellipta. Ok To H XX 07/23/25 00:00 CLARIFY GIOVANNY Morphine Sulfate 30 mg 06/16/25 09:00 06/23/25 09:08 Morphine Sulfate (*Crx) 30 Mg Tabcr PO 30 mg DAILY GIOVANNY Administration Nitroglycerin 0.4 mg 06/15/25 18:20 Nitroglycerin Sl 0.4 Mg Tablet SUBLINGUAL Q5M PRN chest pain Sulindac 200 Mg 200 mg 06/16/25 17:00 06/23/25 09:10 Tablet Home Med PO 07/16/25 16:59 200 mg BID GIOVANNY Administration Rifabutin 150 Mg 300 mg 06/18/25 09:00 06/23/25 09:10 Capsule Home Med PO 07/18/25 08:59 Not Given DAILY GIOVANNY Non-Formulary Medication 2 puff 06/23/25 09:00 Glycopyrrolate-Formoterol [Bevespi Aerosphere] INHALATION 07/23/25 08:59 BID GIOVANNY Pantoprazole Sodium 40 mg 06/16/25 09:00 06/23/25 09:08 Pantoprazole 40 Mg Tablet PO 40 mg QAM GIOVANNY Administration Polyethylene Glycol 17 gm 06/20/25 09:00 06/23/25 09:08 Polyethylene Glycol 3350 17 Gm Powd.Pack PO 17 gm QAM GIOVANNY Administration Sertraline HCl 50 mg 06/16/25 09:00 06/23/25 09:08 Sertraline Hcl 50 Mg Tablet PO 50 mg DAILY GIOVANNY Administration Sodium Chloride 5 ml 06/18/25 20:00 06/23/25 14:51 Sodium Chlor 3% 15 Ml Neb (Respiratory Therapy) INHALATION 5 ml TIDRT GIOVANNY Administration Tamsulosin HCl 0.4 mg 06/21/25 21:00 06/23/25 09:08 Tamsulosin Hcl 0.4 Mg Capsule PO 0.4 mg Q12HR GIOVANNY Administration Tobramycin/Dexamethasone 1 drop 06/15/25 21:00 06/23/25 15:38 Tobramycin/Dexamethasone Op 2.5 Ml Btl EACH EYE Not Given QID GIOVANNY Trazodone HCl 100 mg 06/15/25 21:00 06/22/25 20:56 Trazodone Hcl 50 Mg Tablet PO 100 mg HS GIOVANNY Administration Umeclidinium/Vilanterol 1 puff 06/23/25 08:00 06/23/25 08:01 Umeclidinium/Vilanterol 62.5-25 Mcg Ellipta INHALATION 1 puff DAILYRT GIOVANNY Administration Radiology Results: ITS Impressions Chest X-Ray 06/20/25 10:11 IMPRESSION: Redemonstration of volume loss within the right hemithorax with adjacent compressive atelectasis and a small right-sided pleural effusion.
== END 2025-06-23 18:20 | disposition home health service (06) | DRG 177 ==
LOC: ANHED 15:51 → ANHIMU 16:21 → ANH3MEDSUR 06-18 13:34
PROVIDERS: Emergency Medicine; Internal Medicine; Internal Medicine Critical Care Medicine; Nurse Practitioner Adult Health; Nurse Practitioner Gerontology; Admitting Provider Family Medicine; Emergency Provider Emergency Medicine; PCP Family Medicine; Visit Provider Hospitalist
DX: A31.0 Pulmonary mycobacterial infection (principal); E43 Unspecified severe protein-calorie malnutrition; I50.43 Acute on chronic combined systolic (congestive) and diastolic (congestive) heart failure; B44.1 Other pulmonary aspergillosis; I13.0 Hypertensive heart and chronic kidney disease with heart failure and stage 1 through stage 4 chronic kidney disease, or unspecified chronic kidney disease; J96.11 Chronic respiratory failure with hypoxia; J44.1 Chronic obstructive pulmonary disease with (acute) exacerbation; I47.10 Supraventricular tachycardia, unspecified; B02.29 Other postherpetic nervous system involvement; N18.31 Chronic kidney disease, stage 3a; I25.5 Ischemic cardiomyopathy; J44.9 Chronic obstructive pulmonary disease, unspecified; K21.9 Gastro-esophageal reflux disease without esophagitis; L51.9 Erythema multiforme, unspecified; E55.9 Vitamin D deficiency, unspecified; E78.5 Hyperlipidemia, unspecified; I35.0 Nonrheumatic aortic (valve) stenosis; I25.10 Atherosclerotic heart disease of native coronary artery without angina pectoris; I71.40 Abdominal aortic aneurysm, without rupture, unspecified; M48.061 Spinal stenosis, lumbar region without neurogenic claudication; M21.372 Foot drop, left foot; M19.90 Unspecified osteoarthritis, unspecified site; H91.90 Unspecified hearing loss, unspecified ear; G25.81 Restless legs syndrome; G89.29 Other chronic pain; F32.9 Major depressive disorder, single episode, unspecified; I25.2 Old myocardial infarction; Z99.81 Dependence on supplemental oxygen; Z86.12 Personal history of poliomyelitis; Z95.5 Presence of coronary angioplasty implant and graft; Z87.891 Personal history of nicotine dependence; Z79.82 Long term (current) use of aspirin; Z68.22 Body mass index [BMI] 22.0-22.9, adult
CPT/HCPCS: 36415; 36600; 71046; 80048; 80053; 81003; 82306; 82805; 83540; 83550; 83605; 83735; 83880; 84484; 85018; 85025; 87040; 87070; 87205; 93005; 94640; 94667; 94668; 94669; 96365; 96367; 96375; 97110; 97116; 97161; 97165; 97530; 97535; 99285; A9270; J0456; J0696; J1650; J1938; J7050; J7512

== ENCOUNTER 2025-06-28 21:56 | Inpatient (IN) | payer MEDICARE, SELFPAY ==
[2025-06-28] VITALS (10 sets, daily range): BP systolic 99–113; BP diastolic 43–77; PULSE 70–91; RESP 15–18; TEMP 36.6; O2SAT 97–100
--- NOTE | ~2025-06-28 | CT_ITS ---
Clinical Indication: Hypoxia CT Scan of the Chest with Contrast: Technique: Contiguous sections were acquired throughout the chest after intravenous administration of 100 cc of Omnipaque 350. Dose reduction technique was used on this scan by utilizing automated expos ure control and iterative reconstruction technique. The dose-length product (DLP) was 283.61 mGy-cm. COMPARISON: 06/01/2025 Findings: Multiple shotty/minimally enlarged mediastinal lymph nodes are present along the right paratracheal s tripe and AP window region. There is no filling defect in the pulmonary arterial tree to suggest pulm onary embolus. There is no evidence of aortic dissection or aneurysm. No pericardial effusion. There are small bilateral pleural effusions. Bibasilar consolidation with air bronchograms is present , which could reflect atelectasis/pulmonary edema versus pneumonia. There is probable chronic scarrin g or interstitial change in the right middle lobe. There are patchy areas of consolidation the left u pper lobe and right upper lobe, which could reflect additional or new versus pneumonia. There is mild to moderate emphysema.. Images through the upper abdomen reveal no abnormalities. Impression: No evidence of pulmonary embolus, aortic dissection, or aortic aneurysm. Patchy bilateral consolidation, suggestive of pneumonia and possible superimposed bibasilar atelectas is. There is significant worsening in the left upper lobe as compared to prior exam. Otherwise, remai oc areas of airspace disease are similar to prior exam in the remainder of the lungs. Pulmonary serge ma not completely excluded, though felt to be somewhat less likely given the appearance and distribut ion of findings. Possible chronic scarring or atelectasis in the right middle lobe. Minimal pleural effusions. Reviewed, dictated and finalized at [facility]. Impression: No evidence of pulmonary embolus, aortic dissection, or aortic aneurysm. Patchy bilateral consolidation, suggestive of pneumonia and possible superimpos ed bibasilar atelectasis. There is significant worsening in the left upper lobe as compared to prior exam. Otherwise, remaining areas of airspace disease are similar to prior exam in the remainder of the lungs. Pulmonary edema not comple tely excluded, though felt to be somewhat less likely given the appearance and distribution of findings. Possible chronic scarring or atelectasis in the right middle lobe. Minimal pleural effusions.
--- NOTE | ~2025-06-28 | XR_ITS ---
CHEST RADIOGRAPH CLINICAL HISTORY: SOB . COMPARISON: 06/20/2025 TECHNIQUE: Single portable view of the chest. FINDINGS The cardiomediastinal silhouette is unremarkable. Redemonstration of volume loss within the right hemithorax with increased right-sided pleural effusio n when compared with previous study. Increased interstitial markings within the mid to lower right lung field, unchanged from prior. The left hemithorax remains clear. IMPRESSION: Increased right-sided pleural effusion when compared with previous study. Remainder of examination is unchanged. Reviewed, dictated and finalized at location A.
--- NOTE | 2025-06-28 22:02 | ECG_ITS ---
Test Date: 2025-06-28 22:06:32 Measurements Intervals [place] Rate: 76 P: 52 NC: 210 QRS: 15 QRSD: 117 T: 35 QT: 403 QTc: 456 Interpretive Statements SINUS RHYTHM WITH FIRST DEGREE AV BLOCK POSSIBLE LEFT ATRIAL ENLARGEMENT INCOMPLETE RIGHT BUNDLE BRANCH BLOCK BORDERLINE ECG Compared to ECG 06/15/2025 16:30:39 First degree AV block now present Electronically Signed On 06-29-2025 06:21:07 CDT by Tim Mary D.O.
[2025-06-28 22:23] LABS: Hematocrit 27.2 % (42.0-52.0); Hemoglobin 8.2 g/dL (14.0-18.0); Immature Granulocyte Percent A 1.3 % (0-0.5); Lymphocytes Absolute Auto 0.59 K/mm3 (0.9-3.2); Mean Corpuscular HGB Conc 30.1 g/dl (32-36); Mean Corpuscular Hemoglobin 28.5 pg (26-34); Mean Corpuscular Volume 94.4 fl (80-100); Nucleated Red Blood Cells Absolute Auto 0.000 K/mm3 (0.0-0.012); Nucleated Red Blood Cells Perc 0.0 % (0.0-0.2); Platelet Count Result 251 k/mm3 (150-375); Red Blood Count 2.88 M/mm3 (4.6-6.20); White Blood Count 14.8 K/mm3 (4.5-10.0)
--- OUTSIDE RECORDS SUMMARY | 2025-06-28 22:32 | XMS_ITS | Clinical Summary ---
Author Organization [facility] [address] Address [address] [place] [address] Care Team Providers Care Content Strategy Lead Name Role Phone Naveed Mcintosh MD Primary Care Prov ider Salas Gottlieb MD Unavailable [phone] Allergies Active Allergy Reactions Criticality Noted Date Comments Pollen Extracts Unknown 12/01/2019 Levonorgestrel-Ethinyl Estrad Unknown 2019 Medications aspirin 81 mg enteric coated tablet Take 1 tablet (81 mg total) by mouth daily Active albuterol HFA (PROVENTIL HFA,VENTOLIN HFA,PROAIR HFA) 90 mcg/actuation inhaler INHALE 2 PUFFS EVERY 4-6 HOURS 04/19/20 19 Active buPROPion SR (ZYBAN) 150 mg 12 hr tablet Take 1 tablet (150 mg total) by mouth 2 (two) times a day 3 09/12/[address] (NexIUM) 20 mg capsule Take 2 capsules (40 mg total) by mouth daily before breakfast Active finasteride (PROSCAR) 5 mg tablet Take 1 tablet (5 mg total) by mouth daily 2 09/18/20 19 Active morphine ER (MS CONTIN) 30 mg 12 hr tablet Take 2 tablets (60 mg total) by mouth 2 (two) times a day 0 09/19/20 19 Active sertraline (ZOLOFT) 50 mg tablet Take 1 tablet (50 mg total) by mouth daily 0 09/19/20 19 Active tamsulosin (FLOMAX) 0.4 mg extended release capsule TAKE ONE CAPSULE BY MOUTH EVERY DAY 04/19/20 19 Active traZODone (DESYREL) 50 mg tablet Take 1 tablet (50 mg total) by mouth nightly at bedtime 1 09/23/20 19 Active nitroglycerin (NITROSTAT) 0.[address] 1 tablet (0.4 mg total) under the tongue every 5 (five) minutes as needed for chest pain May repeat dose q 5 min, up to 3 doses total 100 tablet 12/20/19 20 Active atorvastatin (LIPITOR) 80 mg tabletIndicati ons:Coronary artery disease involving yurok coronary artery of yurok heart without angina pectoris TAKE 1 TABLET BY MOUTH EVERY DAY 90 tablet 1 12/20/19 22 Active Breztri Aerosphere 160-9-4.8 mcg/actuation HFA aerosol inhaler INHALE 2 PUFFS BY MOUTH EVERY MORNING AND EVENING THEN RINSE AND SPIT AFTER USE 09/12/20 23 Active linaCLOtide (LINZESS) 290 mcg capsule 1 capsule (290 mcg total) Active baclofen (LIORESAL) 10 mg tablet Take 1 tablet (10 mg total) by mouth 2 (two) times a day 04/28/20 24 Active benzonatate (TESSALON) 200 mg capsule TAKE 1 CAPSULE BY MOUTH THREE TIMES DAILY NEEDED FOR COUGH 04/22/20 24 Active fenofibrate (TRIGLIDE) 160 mg tablet Take 1 tablet (160 mg total) by mouth daily 04/22/20 24 Active furosemide (LASIX) 40 mg tablet Take 1 tablet (40 mg total) by mouth daily 03/13/20 24 Active sulindac (CLINORIL) 200 mg tablet Take 1 tablet (200 mg total) by mouth 2 (two) times a day 04/25/20 24 Active metoprolol XL (TOPROL-XL) 50 mg extended release tablet Take 1 tablet (50 mg total) by mouth nightly at bedtime. 12/29/19 25 Active LORazepam (ATIVAN) 0.5 mg tablet Take by mouth 2 (two) times a day as needed 12/13/19 25 Active tobramycin-dex AMETHasone (TOBRADEX) ophthalmic solution Administer 1 drop into both eyes 4 (four) times a day Active acyclovir (ZOVIRAX) 400 mg tablet Take 1 tablet (400 mg total) by mouth 3 (three) times a day Active azithromycin (ZITHROMAX) 500 mg tabletIndicati ons:Pneumonia, Community Acquired Take 1 tablet (500 mg total) by mouth daily 21 tablet 06/07/20 25 Active rifabutin (MYCOBUTIN) 150 mg capsuleIndicat ions:Mycobacte riosis Take 2 capsules (300 mg total) by mouth daily for 21 days 42 capsule 06/07/20 25 025 Active ethambutoL (MYAMBUTOL) 400 mg tabletIndicati ons:Mycobacter iosis Take 3 tablets (1,200 mg total) by mouth daily for 21 days 63 tablet 06/07/20 25 025 Active losartan (COZAAR) 25 mg tabletIndicati ons:Coronary artery disease involving yurok coronary artery of yurok heart without angina pectoris TAKE 1 TABLET(25 MG) BY MOUTH DAILY 90 tablet 06/26/20 25 Active losartan (COZAAR) 25 mg tabletIndicati ons:Coronary artery disease involving yurok coronary artery of yurok heart without angina pectoris Take 1 tablet (25 mg total) by mouth daily 90 tablet 3 05/13/20 24 025 Discontinued levoFLOXacin (LEVAQUIN) 750 mg tabletIndicati ons:Pneumonia, Community Acquired Take 1 tablet (750 mg total) by mouth brake rider before breakfast for 11 days 11 tablet 06/08/20 25 025 Active Problems Problem Noted Date Diagnosed Date [...] with Dr. Harvey Gottlieb who is his filer helper at [facility]. His previous pulmonary workup included alpha [...] with Dr. Harvey Gottlieb who is his filer helper at [facility]. His previous pulmonary workup included alpha [...] with Dr. Harvey Gottlieb who is his filer helper at [facility]. 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 ID was consulted for MAC and patient was started on triple therapy for this 06/04. CT chest did show basilar consolidation suggestive of aspiration +/- pneumonia and PNA PCR + pseudomonas Since arrival to [facility], he has been on 3 [...] with Dr. Harvey Gottlieb who is his filer helper at [facility]. His previous pulmonary workup included alpha [...] GERD, depression, BPH who was transferred to [facility] from [facility] 06/04 for further management of PNA [...] with Dr. Adams who communicated that outpatient filer helper has done immunoglobulin levels, and patient has [...] of COPD exacerbation/pneumonia/brochiectasis exacerbation. Since arrival to [facility], he has been on 3 [...] Plan (06/04/2025 3:59 AM CDT): Transferred from [facility] for pulm and ID evaluation of recurrent bacterial PNA and MAC infection. 11 episodes of PNA requiring abx therapy in past two years. Hx of COPD on baseline 4L NC reported. 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 ID was consulted for MAC and patient was started on triple therapy for this 06/04. CT chest did show basilar consolidation suggestive of aspiration +/- pneumonia and PNA PCR + pseudomonas Since arrival to [facility], he has been on 3 [...] GERD, depression, BPH who was transferred to [facility] from [facility] 06/04 for further management of PNA [...] with Dr. Adams who communicated that outpatient filer helper has done immunoglobulin levels, and patient has [...] of COPD exacerbation/pneumonia/brochiectasis exacerbation. Since arrival to [facility], he has been on 3 [...] Plan (06/04/2025 3:59 AM CDT): Transferred from [facility] for pulm and ID evaluation of recurrent bacterial PNA and MAC infection. 11 episodes of PNA requiring abx therapy in past two years. Hx of COPD on baseline 4L NC reported. MAC infection on recent sputum cultures, evaluated by ID here at [facility] and recommended starting rifabutin 300mg daily, [...] - chest xray, defer further imaging until datapower consultant recs to avoid unnecessary repeat radiation [...] with Dr. Harvey Gottlieb who is his filer helper at [facility]. His previous pulmonary workup included alpha [...] with Dr. Harvey Gottlieb who is his filer helper at [facility]. His previous pulmonary workup included alpha [...] with Dr. Harvey Gottlieb who is his filer helper at [facility]. 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 ID was consulted for MAC and patient was started on triple therapy for this 06/04. CT chest did show basilar consolidation suggestive of aspiration +/- pneumonia and PNA PCR + pseudomonas Since arrival to [facility], he has been on 3 [...] GERD, depression, BPH who was transferred to [facility] from [facility] 06/04 for further management of PNA [...] with Dr. Adams who communicated that outpatient filer helper has done immunoglobulin levels, and patient has [...] of COPD exacerbation/pneumonia/brochiectasis exacerbation. Since arrival to [facility], he has been on 3 [...] Plan (06/04/2025 3:59 AM CDT): Transferred from [facility] for pulm and ID evaluation of recurrent bacterial PNA and MAC infection. 11 episodes of PNA requiring abx therapy in past two years. Hx of COPD on baseline 4L NC reported. MAC infection on recent sputum cultures, evaluated by ID here at [facility] and recommended starting rifabutin 300mg daily, [...] - chest xray, defer further imaging until datapower consultant recs to avoid unnecessary repeat radiation [...] DAYLIN. Follows with Dr. Clemons at the [facility]iology in [place], [place]. 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 Follows with Dr. Clemons at the [facility]iology in [place], [place]. 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 Follows with Dr. Clemons at the [facility] in [place], [place]. Assessment & Plan (06/04/2025 3:59 AM [...] with Dr. Harvey Gottlieb who is his filer helper at [facility]. His previous pulmonary workup included alpha [...] Plan (06/04/2025 3:59 AM CDT): Transferred from [facility] for pulm and ID evaluation of recurrent bacterial PNA and MAC infection. 11 episodes of PNA requiring abx therapy in past two years. Hx of COPD on baseline 4L NC reported. MAC infection on recent sputum cultures, evaluated by ID here at [facility] and recommended starting rifabutin 300mg daily, [...] - chest xray, defer further imaging until datapower consultant recs to avoid unnecessary repeat radiation [...] and go back to home inhaler. - MACHINE BINDING FOLDER evaluation - Will f/u [facility]. - Will arrange follow up in clinic with - Darwinaquin 750 mg daily x 14 day course [...] valve, BID vest therapy and DuoNebs. - MACHINE BINDING FOLDER evaluation - Continue current antibiotics (meropenem, azithro) [...] Encounters Date Type Department Care Team Description 06/26/2025 SHOP/CHAP Subsequent Outreach [facility] OP CASE MANAGEMENT [address] [place] [address] Yarelis Rachel, MEASUREMENT SPECIALIST 06/21/2025 Telephone [facility] Infectious Diseases [address] [place] [address] [place] [phone] Gladys Larson NP 06/20/2025 Telephone [facility] Infectious Diseases [address] [place] [address] [place] [phone] Alyssa Chen 06/19/2025 SHOP/CHAP Subsequent Outreach [facility] OP CASE MANAGEMENT [address] [place] [address] Yarelis Rachel, MEASUREMENT SPECIALIST 06/16/2025 SHOP/CHAP Subsequent Outreach [facility] OP CASE MANAGEMENT [address] [place] [address] Yarelis Rachel, MEASUREMENT SPECIALIST 06/15/2025 Documentation Internal Medicine John Guzmán MD Transfer Notification 06/15/2025 SHOP/CHAP Subsequent Outreach [facility] OP CASE MANAGEMENT [address] [place] [address] Yarelis Rachel, MEASUREMENT SPECIALIST 06/15/2025 Telephone [facility] Infectious Diseases [address] [facility] [address] [place] [address] Daniella Leach 06/15/2025 Telephone [facility] Infectious Diseases [address] [facility] [address] [place] [address] Gustavo Alyssa 06/13/2025 Telephone [facility] Infectious Diseases [address] [facility] [address] [place] [address] Alyssa Chen 06/08/2025 SHOP/CHAP Initial Outreach [facility] OP CASE MANAGEMENT [address] [place] [address] Yarelis Rachel, MEASUREMENT SPECIALIST 06/08/2025 Telephone [facility] Home Care Services [address] [facility] [address] [place] [phone] Lindsay Quiroz 06/08/2025 SHOP/CHAP Initial Eligibility Review [facility] OP CASE MANAGEMENT [address] [place] [address] Yarelis Rachel, MEASUREMENT SPECIALIST 06/07/2025 Telephone [facility] Home Care Services [address] [place] [address] [place] [phone] Lindsay Quiroz 06/07/2025 Telephone [facility] Home [facility] Services [address] [place] [address] [place] [phone] Lindsay Quiroz 06/07/2025 Orders Only [facility] Scheduling [address] [place] [address] Camilo Shi MD Shortness of breath (Primary Dx) 06/06/2025 3:30 PM CDT - 06/06/2025 11:59 PM CDT Hospital Encounter [facility] Radiology [address] [place] [address] Discharge Disposition: Discharge to home or self care 06/04/2025 1:12 AM CDT - 06/07/2025 3:09 PM CDT Hospital Encounter [facility] [address] [place] [address] Lukas Paredes MD Kocak, MD Raffy Smithwood, MD Tomer Marina, Dianna Flores MD Acute on chronic hypoxic respiratory failure (HCC) (Primary Dx) Discharge Disposition: Discharge to home, home health skilled care 06/02/2025 Telephone [facility] Infectious Diseases [address] [place] [phone] Enma Tate, ZIA 06/02/2025 Telephone [facility] Infectious Diseases [address] [place] [phone] Alyssa Chen 05/30/2025 Documentation Internal Medicine Lukas Paredes MD 05/30/2025 Telephone [facility] Infectious Diseases [address] [place] [address] [phone] Deya Chenah 05/30/2025 Telephone [facility] Infectious Diseases [address] [place] [address] [phone] nEma Tate, [facility] 05/04/2025 Telephone [facility] Infectious Diseases [address] [place] [address] [phone] Kaylin Horvath, [facility] 05/04/2025 Telephone [facility] Infectious Diseases [address] [place] [phone] Daniella Leach 05/02/2025 1:22 PM CDT - 05/02/2025 11:59 PM CDT Hospital Encounter [facility] [address] [place] [address] Discharge Disposition: Discharge to home or self care 05/02/2025 10:24 AM CDT - 05/02/2025 11:59 PM CDT Hospital Encounter [facility] Rad[facility] [address] [place] [address] Diagnosis unknown Discharge Disposition: Discharge to home or self care 05/02/2025 10:17 AM CDT - 05/02/2025 11:59 PM CDT Hospital Encounter [facility] Radiology [facility] [address] [place] [address] Discharge Disposition: Discharge to home or self care 05/02/2025 8:40 AM CDT Office Visit [facility] Infectious Diseases [address] [phone] Gladys Larson NP Mycobacterial infection, unspecified 04/25/2025 Documentation Internal Medicine Gladys Toure MD Transfer Notification from Last 3 Months Surgical History Surgery [...] by TW Conv) Coronary artery disease Cardiomyopathy Hyperlipidemia Hypertension Cancer of mandible 1985 Polio 1951 GERD (gastroesophageal reflux disease) [...] 0.6 oz pur e alcohol) [facility] Utilities Answer Date Recorded In the [...] often do you attend chur ch or caodaism services? Never 06/08/2025 Do you belong to any clubs o r organizations such as uatsdin groups, unions, fraternal or athletic groups, or [...] any time in the past 12 m [facility], were you homeless or living in a fdc (including now)? No 06/08/2025 Personal Safety Answer Date Recorded Have you ever been in or are you currently in a harmful physical or emotional relationship or is someone making you feel afraid or unsafe? Denies 06/04/2025 Sex and Gender Information Value Date Recorded Sex Assigned at Not on file Legal Sex Male 9:37 AM BATCH OPERATOR Gender Identity Male 11/26/2019 3:10 PM BATCH OPERATOR Sexual Orientation Not on file Obstetrics [...] 09/26/2017, 2015 Fall Risk Assessment 06/07/2026 06/07/2025 Procedures Procedure Name Priority Date/Time Associated Diagnosis Comments EGFR Routine 06/06/2025 9:15 PM CDT DIFFERENTIAL AUTO Routine 06/06/2025 9:1 5 PM CDT PROTIME-INR Routine 06/06/2025 9:15 PM CDT CBC WITH AUTO DIFFERENTIAL Routine 06/06/2025 9:15 PM CDT COMPREHENSIVE METABOLIC PANEL Routine 06/06/2025 9:15 PM CDT FL MODIFIED BARIUM SWALLOW W VIDEO IP Routine 06/06/2025 3:40 PM CDT MACHINE BINDING FOLDER EVALUATE AND TREAT VIDEOFLUOROSCOPIC SWALLOW STUDY Routine 06/06/2025 3:30 PM CDT MACHINE BINDING FOLDER EVALUATE AND TREAT Routine 3:30 PM CDT MACHINE BINDING FOLDER EVALUATE AND TREAT Routine 3:30 PM CDT [...] MD LAB BLOOD ORDERABLES Final Resu lt [facility] Department [place] [address] * (ABNORMAL) Differential, auto (06/06/2025 9:15 PM CDT) Neutrophil abs 5.92 1.50 - 6.50 K/cumm Imm gran abs 0.14(H) 0.00 - 0.10 K/cumm [facility] Lymphocyte abs 1.20 0.80 - 3.30 K/cumm [facility] Monocyte abs 1.06(H) 0.20 - 0.80 K/cumm [facility] Eosinophil abs 0.40 0.00 - 0.50 K/cumm [facility] Basophil abs 0.03 0.00 - 0.10 K/cumm [facility] Neutrophil pct 67.7 % [facility] Comment: Interpretive Data Percent cell count reference ranges are not reported, since discordance with absolute values may lead to misinterpretation of CBC data. Current Interpretive Data was last revised on 2018. Imm gran pct 1.6 % [facility] Comment: Interpretive Data Percent cell count reference ranges are not reported, since discordance with absolute values may lead to misinterpretation of CBC data. Current Interpretive Data was last revised on 2018. Lymphocyte pct 13.7 % [facility] Comment: Interpretive Data Percent cell count reference ranges are not reported, since discordance with absolute values may lead to misinterpretation of CBC data. Current Interpretive Data was last revised on 2018. Monocyte pct 12.1 % [facility] Comment: Interpretive Data Percent cell count reference ranges are not reported, since discordance with absolute values may lead to misinterpretation of CBC data. Current Interpretive Data was last revised on 2018. Eosinophil pct 4.6 % [facility] Comment: Interpretive Data Percent cell count reference ranges are not reported, since discordance with absolute values may lead to misinterpretation of CBC data. Current Interpretive Data was last revised on 2018. Basophil pct 0.3 % [facility] Comment: Interpretive Data Percent cell count reference ranges are not reported, since discordance with absolute values may lead to misinterpretation of CBC data. Current Interpretive Data was last revised on 2018. Blood 06/06/2025 9:15 PM CDT 06/06/2025 10:33 PM CDT us Dianna Root MD LAB BLOOD ORDERABLES Final Resu lt Performing Organization Address [facility] Co de Phone Number [facility] Department [place] [address] * (ABNORMAL) CBC with auto differential (06/06/2025 9:15 PM CDT) WBC 8.75 3.80 - 9.90 K/cumm Hgb 8.9(L) 13.0 - 17.5 g/dL [facility] Hct 28.3(L) 38.9 - 50.3 % [facility] Plt 263 150 - 400 K/cumm [facility] MPV 10.8 9.1 - 12.3 fL [facility] RBC 3.18(L) 4.30 - 5.80 M/cumm [facility] MCV 89.0 81.3 - 96.4 fL [facility] MCH 28.0 27.1 - 33.3 pg [facility] MCHC 31.4(L) 32.3 - 35.7 g/dL [facility] RDW CV 15.0(H) 11.1 - 14.9 % [facility] RDW SD 48.6(H) 35.7 - 48.1 fL [facility] NRBC abs 0.00 0.00 - 0.01 K/cumm [facility] Blood 06/06/2025 9:15 PM CDT 06/06/2025 10:33 PM CDT us Dianna Root MD LAB BLOOD ORDERABLES Final Resu lt Performing Organization Address City/[facility]/ZIP Co de Phone Number [facility] Department [place] [address] * (ABNORMAL) Protime-INR (06/06/2025 9:15 PM CDT) PT 17.4(H) 9.7 - 13.0 sec INR 1.60(H) 0.90 - 1.20 [facility] Comment: Interpretive data Oral anticoagulant therapeutic ranges: Venous thromboembolism prophylaxis or treatment: 2.0-3.0 CARDIOLOGY Standard range: 2.0-3.0 High-intensity range: 2.5-3.5 Refer to indication-specific guidelines for appropriate target ranges for prosthetic heart valve replacement. Current interpretive data was last revised on 2019. Blood 06/06/2025 9:15 PM CDT 06/06/2025 10:36 PM CDT us Dianna Root MD LAB BLOOD ORDERABLES Final Resu lt [facility] Department [place] [address] * (ABNORMAL) Comprehensive metabolic panel (06/06/2025 9:15 PM CDT) Sodium 139 135 - 145 mmol/L Potassium, pl 4.7 3.3 - 4.9 mmol/L [facility] Chloride 96(L) 97 - 110 mmol/L [facility] CO2 35(H) 22 - 32 mmol/L [facility] Anion gap 8 2 - 15 mmol/L [facility] BUN 27(H) 6 - 25 mg/dL [facility] Creatinine 1.01 0.80 - 1.30 mg/dL [facility] Glucose 103 70 - 199 mg/dL [facility] Comment: Interpretive Data Fasting glucose >/= 126 [...] 2022. Calcium 9.6 8.5 - 10.3 mg/dL [facility] Bilirubin, total 0.3 0.1 - 1.2 mg/dL [facility] Protein, pl 6.8 6.5 - 8.5 g/dL [facility] Albumin 3.2(L) 3.5 - 5.0 g/dL [facility] Alk phos 194(H) 40 - 130 Units/L [facility] ALT 23 7 - 55 Units/L [facility] AST 34 10 - 50 Units/L [facility] Blood 06/06/2025 9:15 PM CDT 06/06/2025 10:33 PM CDT us Dianna Root MD LAB BLOOD ORDERABLES Final Resu lt ANGELLA [facility] Department [place] [address] * FL Modified Barium Swallow W Video [...] IMG FLUOROSCOPY PROCEDURE S Final Result * MACHINE BINDING FOLDER Evaluate and Treat (VFSS) (06/06/2025 3:30 PM CDT) Narrative Taisha Auguste, JOE - 06/06/2025 3:30 PM CDT Taisha Auguste SLP 06/06/2025 4:33 PM Speech-Language Pathology: Videofluoroscopic Study of Swallow (VFSS/MBS) HPI/PMH 80 y.o. 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 Plan MACHINE BINDING FOLDER Frequency of Services during current admission: Discharge from this Service MACHINE BINDING FOLDER Recommendation (Add'l Services): No further MACHINE BINDING FOLDER indicated Next Visit Plan: No further ST warranted Additional Referrals: N/A Discharge Summary Statement If this is the last swallow therapy visit, this serves as the discharge summary. us Lukas Paredes MD MACHINE BINDING FOLDER ORDERABLES Final Res ult * MACHINE BINDING FOLDER Evaluation and Treatment (06/06/2025 3:30 PM CDT) Narrative Taisha Auguste SLP - 06/06/2025 3:30 PM CDT Taisha Auguste SLP 06/06/2025 4:33 PM Speech-Language Pathology: Videofluoroscopic Study of Swallow (VFSS/MBS) HPI/PMH 80 y.o. 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 Plan MACHINE BINDING FOLDER Frequency of Services during current admission: Discharge from this Service MACHINE BINDING FOLDER Recommendation (Add'l Services): No further MACHINE BINDING FOLDER indicated Next Visit Plan: No further ST warranted Additional Referrals: N/A Discharge Summary Statement If this is the last swallow therapy visit, this serves as the discharge summary. us Lukas Paredes MD MACHINE BINDING FOLDER ORDERABLES Final Res ult * MACHINE BINDING FOLDER Evaluation and Treatment (06/06/2025 3:30 PM CDT) Narrative Taisha Auguste SLP - 06/06/2025 3:30 PM CDT Taisha Auguste SLP 06/06/2025 4:33 PM Speech-Language Pathology: Videofluoroscopic Study of Swallow (VFSS/MBS) HPI/PMH 80 y.o. 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 Plan MACHINE BINDING FOLDER Frequency of Services during current admission: Discharge from this Service MACHINE BINDING FOLDER Recommendation (Add'l Services): No further MACHINE BINDING FOLDER indicated Next Visit Plan: No further ST warranted Additional Referrals: N/A Discharge Summary Statement If this is the last swallow therapy visit, this serves as the discharge summary. us Keith Alexander MD MACHINE BINDING FOLDER ORDERABLES Final Resu lt * TRANSTHORACIC ECHO (TTE) COMPLETE W DOPPLER/CF W CONTRAST (06/06/2025 12:04 PM CDT) EF Mod BP 55 % CONS SCIMAGE Anatomical Region Laterality Modality Ultrasound 06/06/2025 11:1 7 AM CDT Narrative 06/06/2025 1:37 PM CDT [facility] [place] [address] Transthoracic Echocardiographic Report Patient Name: ELMER LÓPEZ R : 1945 (80y 3m) Gender: M Study Date: 06/06/2025 11:17:38 AM Ht(Inch): 71 Wt(Lb): 169.97 BSA: 1.97 Tipple Supervisor: Estrellita Carrero RDCS Location: [id number] Order Provider: DIANNA ROOT Heart Rate: 80 [...] Procedure Note Nava Morales MD - 06/06/2025 [facility] [place] [address] Transthoracic Echocardiographic Report Patient Name: ELMER LÓPEZ R : 1945 (80y 3m) Gender: M Study Date: 06/06/2025 11:17:38 AM Ht(Inch): 71 Wt(Lb): 169.97 BSA: 1.97 Tipple Supervisor: Estrellita Carrero RDCS Location: [id number] Order Provider:DIANNA ROOT Heart Rate: 80 BMI: [...] MD LAB BLOOD ORDERABLES Final Resu lt [facility] Department [place] [address] * (ABNORMAL) Differential, auto (06/05/2025 10:58 PM CDT) Neutrophil abs 4.68 1.50 - 6.50 K/cumm Imm gran abs 0.08 0.00 - 0.10 K/cumm [facility] Lymphocyte abs 1.24 0.80 - 3.30 K/cumm [facility] Monocyte abs 0.96(H) 0.20 - 0.80 K/cumm [facility] Eosinophil abs 0.50 0.00 - 0.50 K/cumm [facility] Basophil abs 0.03 0.00 - 0.10 K/cumm [facility] Neutrophil pct 62.4 % [facility] Comment: Interpretive Data Percent cell count reference ranges are not reported, since discordance with absolute values may lead to misinterpretation of CBC data. Current Interpretive Data was last revised on 2018. Imm gran pct 1.1 % [facility] Comment: Interpretive Data Percent cell count reference ranges are not reported, since discordance with absolute values may lead to misinterpretation of CBC data. Current Interpretive Data was last revised on 2018. Lymphocyte pct 16.6 % [facility] Comment: Interpretive Data Percent cell count reference ranges are not reported, since discordance with absolute values may lead to misinterpretation of CBC data. Current Interpretive Data was last revised on 2018. Monocyte pct 12.8 % [facility] Comment: Interpretive Data Percent cell count reference ranges are not reported, since discordance with absolute values may lead to misinterpretation of CBC data. Current Interpretive Data was last revised on 2018. Eosinophil pct 6.7 % [facility] Comment: Interpretive Data Percent cell count reference ranges are not reported, since discordance with absolute values may lead to misinterpretation of CBC data. Current Interpretive Data was last revised on 2018. Basophil pct 0.4 % [facility] Comment: Interpretive Data Percent cell count reference ranges are not reported, since discordance with absolute values may lead to misinterpretation of CBC data. Current Interpretive Data was last revised on 2018. Blood 06/05/2025 10:5 8 PM CDT 06/06/2025 12:50 AM CDT Dianna Root MD LAB BLOOD ORDERABLES Final Resu lt Performing Organization Address City/[facility] Co de Phone Number [facility] Department [place] [address] * (ABNORMAL) CBC with auto differential (06/05/2025 10:58 PM CDT) WBC 7.49 3.80 - 9.90 K/cumm Hgb 8.4(L) 13.0 - 17.5 g/dL [facility] Hct 26.6(L) 38.9 - 50.3 % [facility] Plt 233 150 - 400 K/cumm [facility] MPV 10.9 9.1 - 12.3 fL [facility] RBC 2.93(L) 4.30 - 5.80 M/cumm [facility] MCV 90.8 81.3 - 96.4 fL [facility] MCH 28.7 27.1 - 33.3 pg [facility] MCHC 31.6(L) 32.3 - 35.7 g/dL [facility] RDW CV 15.3(H) 11.1 - 14.9 % [facility] RDW SD 51.3(H) 35.7 - 48.1 fL [facility] NRBC abs 0.00 0.00 - 0.01 K/cumm [facility] Blood 06/05/2025 10:5 8 PM CDT 06/06/2025 12:50 AM CDT Dianna Root MD LAB BLOOD ORDERABLES Final Resu lt Performing Organization Address City/State/[facility] de Phone Number [facility] [place] [address] * (ABNORMAL) Protime-INR (06/05/2025 10:58 PM CDT) PT 18.5(H) 9.7 - 13.0 sec INR 1.69(H) 0.90 - 1.20 [facility] Comment: Interpretive data Oral anticoagulant therapeutic ranges: Venous thromboembolism prophylaxis or treatment: 2.0-3.0 CARDIOLOGY Standard range: 2.0-3.0 High-intensity range: 2.5-3.5 Refer to indication-specific guidelines for appropriate target ranges for prosthetic heart valve replacement. Current interpretive data was last revised on 2019. Blood 06/05/2025 10:5 8 PM CDT 06/06/2025 12:58 AM CDT Dianna Root MD LAB BLOOD ORDERABLES [facility] Performing Organization Address [facility] de Phone Number [facility] Department [place] [address] * (ABNORMAL) Comprehensive metabolic panel (06/05/2025 10:58 PM CDT) Sodium 138 135 - 145 mmol/L Potassium, pl 4.4 3.3 - 4.9 mmol/L [facility] Chloride 98 97 - 110 mmol/L [facility] CO2 32 22 - 32 mmol/L [facility] Anion gap 8 2 - 15 mmol/L [facility] BUN 22 6 - 25 mg/dL [facility] Creatinine 1.02 0.80 - 1.30 mg/dL [facility] Glucose 107 70 - 199 mg/dL [facility] Comment: Interpretive Data Fasting glucose >/= 126 [...] 2022. Calcium 9.0 8.5 - 10.3 mg/dL [facility] Bilirubin, total 0.2 0.1 - 1.2 mg/dL [facility] Protein, pl 6.2(L) 6.5 - 8.5 g/dL [facility] Albumin 2.9(L) 3.5 - 5.0 g/dL [facility] Alk phos 192(H) 40 - 130 Units/L [facility] ALT 20 7 - 55 Units/L [facility] AST 38 10 - 50 Units/L [facility] Blood 06/05/2025 10:5 8 PM CDT 06/06/2025 12:38 AM CDT Dianna Root MD LAB BLOOD ORDERABLES Final Resu lt [facility] Department [place] [address] * Pneumonia PCR Sputum, induced (06/05/2025 4:53 AM CDT) C. pneumoniae DNA Not Detected Not Detected Legionella pneumophila DNA Not Detected Not Detected [facility] M. pneumoniae DNA Not Detected Not Detected [facility] Adenovirus DNA Not Detected Not Detected [facility] Coronavirus (229E, OC43, HKU1, NL63) RNA Not Detected Not Detected [facility] Metapneumovirus RNA Not Detected Not Detected [facility] Rhinovirus/Enterov irus RNA Not Detected Not Detected [facility] Influenza A RNA Not Detected Not Detected [facility] Influenza B RNA Not Detected Not Detected [facility] Parainfluenza virus (1-4) RNA Not Detected Not Detected [facility] RSV RNA Not Detected Not Detected [facility] Sputum, induced 06/05/2025 4 :53 AM CDT 06/05/2025 7:31 AM CDT Narrative [facility] - 06/05/2025 8:59 AM CDT [...] of this assay have been determined by [facility]. Current interpretive data was last revised on 2025. Keith Alexander MD LAB MICROBIOLOGY - GENERAL ORDERABLES Final Result [facility] Department [place] [address] * (ABNORMAL) Pneumonia PCR with aerobic culture and Gram stain Sputum, induced (06/05/2025 4:53 AM CDT) Direct Specimen Exam Molecular Analysis: 10^6 copies/mL Pseudomonas aeruginosa Correlation of molecular analysis with final culture results is recommended. Direct Specimen Exam Stain: Moderate polymorphonuclear leukocytes seen. Few squamous epithelial cells seen. Few mixed bacterial anahi seen on Gram stain. [facility] Report Final Report: Growth indicates upper respiratory anahi. (.) [facility] Organism GROWTH INDICATES UPPER RESPIRATORY ANAHI. [facility] Sputum, induced 06/05/2025 4 :53 AM CDT 06/05/2025 6:28 AM CDT Narrative [facility] - 06/07/2025 1:16 PM CDT When rapid molecular testing results are reported, testing completed using the [employer] FilmArray Pneumonia Panel. This molecular assay detects: Acinetobacter [...] performance characteristics have been confirmed by the [facility]. The performance of the FilmArray Pneumonia Panel has not been established for monitoring treatment of infection and bacterial nucleic acids may persist independent of organism viability. us Keith Alexander MD LAB MICROBIOLOGY - GENERAL ORDERABLES Final Result [facility] Department [place] [address] * Mycobacterium tuberculosis PCR Sputum, induced (06/05/2025 4:53 AM CDT) Report Final Report: Target not detected Organism TARGET NOT DETECTED [facility] Sputum, induced 06/05/2025 4 :53 AM CDT 06/05/2025 6:28 AM CDT Narrative ANGELLA [facility] - 06/05/2025 1:24 PM CDT 1. Nucleic acid amplification for detection of Mycobacterium tuberculosis complex is performed using the [employer] GeneXpert MTB/RIF assay. This assay has been approved by the [place] Food and Drug administration for detection of M. tuberculosis in sputum samples. The performance characteristics of this test have been verified by the [facility] Microbiology laboratory for sputum samples and [...] LAB MICROBIOLOGY - GENERAL ORDERABLES Final Result [facility] Department [place] [address] * Infection Prevention MRSA Only (Staphylococcus aureus) Culture Nasal (06/05/2025 4:50 AM CDT) Report Final Report: Negative Nasal 06/05/2025 4:50 AM CDT 06/05/2025 6:40 AM CDT Narrative ANGELL[facility] BECK - 06/06/2025 8:37 AM CDT Testing performed by [facility] ([phone]). Keith Alexander MD LAB MICROBIOLOGY - GENERAL ORDERABLES Final Result Performing Organization Address [facility] de Phone Number ANGELLA BECK [facility] Department [place] [address] * TERRA ab ql w/rflx to ETRRA qn (06/04/2025 10:45 PM CDT) TERRA Negative [...] BLOOD ORDERABLES Final Result Performing Organization Address [facility] de Phone Number ANGELLA BECK [facility] Department [place] [address] * eGFR (06/04/2025 10:45 PM CDT) eGFR [...] of Race in Diagnosing Kidney Disease, JASN 202). The CKD-EPI equation should not be used for patients with unstable renal function and has not been validated in children and those over 70. Current interpretive data was last reviewed 2021. Blood 06/04/2025 10:4 5 PM CDT 06/05/2025 12:38 AM CDT Dianna Root MD LAB BLOOD ORDERABLES Final Resu lt [facility] Department [place] [address] * (ABNORMAL) Differential, auto (06/04/2025 10:45 PM CDT) Neutrophil abs 6.47 1.50 - 6.50 K/cumm Imm gran abs 0.08 0.00 - 0.10 K/cumm [facility] Lymphocyte abs 0.89 0.80 - 3.30 K/cumm [facility] Monocyte abs 1.04(H) 0.20 - 0.80 K/cumm [facility] Eosinophil abs 0.38 0.00 - 0.50 K/cumm [facility] Basophil abs 0.03 0.00 - 0.10 K/cumm [facility] Neutrophil pct 72.8 % [facility] Comment: Interpretive Data Percent cell count reference ranges are not reported, since discordance with absolute values may lead to misinterpretation of CBC data. Current Interpretive Data was last revised on 2018. Imm gran pct 0.9 % [facility] Comment: Interpretive Data Percent cell count reference ranges are not reported, since discordance with absolute values may lead to misinterpretation of CBC data. Current Interpretive Data was last revised on 2018. Lymphocyte pct 10.0 % [facility] Comment: Interpretive Data Percent cell count reference ranges are not reported, since discordance with absolute values may lead to misinterpretation of CBC data. Current Interpretive Data was last revised on 2018. Monocyte pct 11.7 % [facility] Comment: Interpretive Data Percent cell count reference ranges are not reported, since discordance with absolute values may lead to misinterpretation of CBC data. Current Interpretive Data was last revised on 2018. Eosinophil pct 4.3 % [facility] Comment: Interpretive Data Percent cell count reference ranges are not reported, since discordance with absolute values may lead to misinterpretation of CBC data. Current Interpretive Data was last revised on 2018. Basophil pct 0.3 % [facility] Comment: Interpretive Data Percent cell count reference ranges are not reported, since discordance with absolute values may lead to misinterpretation of CBC data. Current Interpretive Data was last revised on 2018. Blood 06/04/2025 10:4 5 PM CDT 06/05/2025 12:39 AM CDT us Dianna Root MD LAB BLOOD ORDERABLES Final Resu lt Performing Organization Address City/[facility]/ZIP Co de Phone Number [facility] Department [place] [address] * (ABNORMAL) Iron profile w/ IBC (06/04/2025 10:45 PM CDT) Pathologist [facility] Iron 24(L) 50 - 150 mcg/dL TIBC 171(L) 250 - 400 mcg/dL [facility] Transferrin saturation 14(L) 20 - 50 % [facility] Blood 06/04/2025 10:4 5 PM CDT 06/05/2025 12:38 AM CDT us Keith Alexander MD LAB BLOOD ORDERABLES Final Result [facility] [place] [address] * HIV 1/2 Antibody plus p24 Antigen Blood (06/04/2025 10:45 PM CDT) Pathologist [facility] HIV 1/2 ab + p24 ag Nonreactive Nonreactive Comment:Nonreactive for HIV- 1 antigen and HIV-1/HIV-2 antibodies. No laboratory evidence of HIV infection. If acute HIV infection is suspected, consider testing for HIV-1 RNA. Current interpretive data was last revised on 22. Blood 06/04/2025 10:4 5 PM CDT 06/05/2025 12:39 AM CDT Keith Alexander MD LAB MICROBIOLOGY - GENERAL ORDERABLES Final Result [facility] [place] [address] * Anti-Neutrophilic Cytoplasmic Antibody (ANCA) with Reflex to MPO and PR3 Abs (06/04/2025 10:45 PM CDT) [facility] ANCA Negative Blood 06/04/2025 10:4 5 PM CDT 06/05/2025 12:39 AM CDT Keith Alexander MD LAB BLOOD ORDERABLES Final Result Performing Organization Address City/[facility] Co de Phone Number [facility] [place] [address] * (ABNORMAL) CBC with auto differential (06/04/2025 10:45 PM CDT) [facility] WBC 8.89 3.80 - 9.90 K/cumm Hgb 9.0(L) 13.0 - 17.5 g/dL [facility] Hct 28.4(L) 38.9 - 50.3 % [facility] Plt 226 150 - 400 K/cumm [facility] MPV 10.9 9.1 - 12.3 fL [facility] RBC 3.14(L) 4.30 - 5.80 M/cumm [facility] MCV 90.4 81.3 - 96.4 fL [facility] MCH 28.7 27.1 - 33.3 pg [facility] MCHC 31.7(L) 32.3 - 35.7 g/dL [facility] RDW CV 15.2(H) 11.1 - 14.9 % [facility] RDW SD 50.3(H) 35.7 - 48.1 fL [facility] NRBC abs 0.00 0.00 - 0.01 K/cumm [facility] Blood 06/04/2025 10:4 5 PM CDT 06/05/2025 12:39 AM CDT Result [facility] Dianna Root MD LAB BLOOD ORDERABLES Final Resu lt [facility] Department [place] [address] * RPR Blood (06/04/2025 10:45 PM CDT) RPR Nonreactive Nonreactive Blood 06/04/2025 10:4 5 PM CDT 06/05/2025 12:39 AM CDT Result [facility] Keith Alexander MD LAB MICROBIOLOGY - GENERAL ORDERABLES Final Result Performing Organization Address City/[facility] Co de Phone Number [facility] [place] [address] * (ABNORMAL) Protime-INR (06/04/2025 10:45 PM CDT) PT 19.6(H) 9.7 - 13.0 sec INR 1.79(H) 0.90 - 1.20 [facility] Comment: Interpretive data Oral anticoagulant therapeutic ranges: Venous thromboembolism prophylaxis or treatment: 2.0-3.0 CARDIOLOGY Standard range: 2.0-3.0 High-intensity range: 2.5-3.5 Refer to indication-specific guidelines for appropriate target ranges for prosthetic heart valve replacement. Current interpretive data was last revised on 2019. Blood 06/04/2025 10:4 5 PM CDT 06/05/2025 12:45 AM CDT Result [facility] Dianna Root MD LAB BLOOD ORDERABLES Final Resu lt Performing Organization Address [facility] Co de Phone Number [facility] Department [place] [address] * Rheumatoid factor (06/04/2025 10:45 PM CDT) [facility] Rheumatoid factor, quant 12.0 0.1 - 15.0 IUnits/mL Blood 06/04/2025 10:4 5 PM CDT 06/05/2025 12:38 AM CDT Keith Alexander MD LAB BLOOD ORDERABLES Final Result Performing Organization Address [facility] de Phone Number [facility] [place] [address] * (ABNORMAL) Protein electrophoresis with reflex, serum with interpretation (06/04/2025 10:45 PM CDT) [facility] Protein, sr 6.0(L) 6.2 - 8.2 g/dL Albumin 2.5(L) 3.2 - 5.0 g/dL [facility] Alpha-1 globulin 0.7(H) 0.2 - 0.4 g/dL [facility] Alpha-2 globulin 1.2(H) 0.5 - 1.0 g/dL [facility] Beta-1 globulin 0.4 0.3 - 0.6 g/dL [facility] Beta-2 globulin 0.5 0.2 - 0.6 g/dL [facility] Gamma globulin 0.7 0.5 - 1.7 g/dL [facility] SPEP interp Please see comment [facility] Comment: No apparent monoclonal peak Reviewed and signed by Serenity Wiseman MD, PhD 06/06/2025 Blood 06/04/2025 10:4 5 PM CDT 06/05/2025 12:38 AM CDT Keith Alexander MD LAB BLOOD ORDERABLES Final Result Performing Organization Address City/[facility]/ZIP Co de Phone Number [facility] [place] [address] * (ABNORMAL) Phosphorus (06/04/2025 10:45 PM CDT) Pathologist [facility] Phosphorus, pl 2.2(L) 2.3 - 4.5 mg/dL Blood 06/04/2025 10:4 5 PM CDT 06/05/2025 12:38 AM CDT Dianna Root MD LAB BLOOD ORDERABLES Final Resu lt Performing Organization Address [facility] [place] [place] [address] * Magnesium (06/04/2025 10:45 PM CDT) [facility] Magnesium 1.7 1.4 - 2.5 mg/dL Blood 06/04/2025 10:4 5 PM CDT 06/05/2025 12:38 AM CDT Dianna Root MD LAB BLOOD ORDERABLES Final Resu lt Performing Organization Address [facility] Co de Phone Number [facility] [place] [address] * Folate (06/04/2025 10:45 PM CDT) [facility] Folic acid 7.0 >=5.0 ng/mL Blood 06/04/2025 10:4 5 PM CDT 06/05/2025 12:38 AM CDT Keith Alexander MD LAB BLOOD ORDERABLES Final Result Performing Organization Address City/[facility] Co de Phone Number [facility] [place] [address] * Ferritin (06/04/2025 10:45 PM CDT) Pathologist [facility] Ferritin 269 30 - 400 ng/mL Blood 06/04/2025 10:4 5 PM CDT 06/05/2025 12:38 AM CDT Keith Alexander MD LAB BLOOD ORDERABLES Final Result Performing Organization Address City/[facility]/ZIP Co de Phone Number [facility] Department [place] [address] * Vitamin B12 (06/04/2025 10:45 PM CDT) [facility] Vitamin B12 491 230 - 1,250 pg/mL Blood 06/04/2025 10:4 5 PM CDT 06/05/2025 12:38 AM CDT Keith Alexander MD LAB BLOOD ORDERABLES Final Result Performing Organization Address [facility] de Phone Number [facility] [place] [address] * (ABNORMAL) Comprehensive metabolic panel (06/04/2025 10:45 PM CDT) [facility] Sodium 138 135 - 145 mmol/L Potassium, pl 4.7 3.3 - 4.9 mmol/L [facility] Chloride 100 97 - 110 mmol/L [facility] CO2 31 22 - 32 mmol/L [facility] Anion gap 7 2 - 15 mmol/L [facility] BUN 21 6 - 25 mg/dL [facility] Creatinine 1.05 0.80 - 1.30 mg/dL [facility] Glucose 107 70 - 199 mg/dL [facility] Comment: Interpretive Data Fasting glucose >/= 126 [...] 2022. Calcium 9.3 8.5 - 10.3 mg/dL [facility] Bilirubin, total 0.2 0.1 - 1.2 mg/dL [facility] Protein, pl 6.7 6.5 - 8.5 g/dL [facility] Albumin 3.1(L) 3.5 - 5.0 g/dL [facility] Alk phos 222(H) 40 - 130 Units/L [facility] ALT 23 7 - 55 Units/L [facility] AST 44 10 - 50 Units/L [facility] Blood 06/04/2025 10:4 5 PM CDT 06/05/2025 12:38 AM CDT Dianna Root MD LAB BLOOD ORDERABLES Final Resu lt [facility] Department [place] [address] * Histoplasma Antigen Urine (06/04/2025 6:49 PM CDT) Histo Ag Ur result None Detected None Detected Histo Ag Ur interp Negative Negative [facility] Comment: Result Interpretation: Reference interval: None Detected Results reported as ng/mL in 0.20 - 20.00 ng/mL range Results above 20.00 ng/mL are reported as 'Positive, Above the Limit of Quantification' Testing Performed by: [facility], [address] [place] [address], [place] [address]. This test was developed and its performance characteristics determined by [facility]. It has not been cleared or approved by the FDA; however, FDA clearance or approval is not currently required for clinical use. The results are not intended to be used as the sole means for clinical diagnosis or patient management decisions. Interpretative data updated 01/21/2021 Urine 06/04/2025 6:49 PM CDT 06/04/2025 10:05 PM CDT us Keith Alexander MD LAB MICROBIOLOGY - GENERAL ORDERABLES Final Result [facility] Department [place] [address] * CT Chest High Resolution WO Contrast [...] PM CDT 06/04/2025 3:19 PM CDT Narrative [facility] - 06/05/2025 4:35 PM CDT Testing performed by [facility] Microbiology Laboratory ([phone]). Keith Alexander MD LAB MICROBIOLOGY - GENERAL ORDERABLES Final Result [facility] Department [place] [address] * Coccidioides antibody screen w/reflex Blood (06/04/2025 10:50 AM CDT) Coccidioides ab screen, ser Reactive Negative [facility] Comment: Confirmatory testing by complement fixation and immunodiffusion has been ordered. ADDITIONAL INFORMATION This test has been modified from the machine bookkeeper's instructions. Its performance characteristics were determined by [facility] in a manner consistent with CLIA requirements. This test has not been cleared or approved by the U.S. Food and Drug Administration. Test Performed by: [place] [address] Floral Specialist: Angeli Harper Ph.D.; CLIA# [id number] Blood 06/04/2025 10:5 0 AM CDT 06/04/2025 12:31 PM CDT Keith Alexander MD LAB MICROBIOLOGY - GENERAL ORDERABLES Final Result Performing Organization Address [facility] Co de Phone Number ANGELLA BECK [facility] Department [place] [address] [facility] * Histoplasma Antibody Blood (06/04/2025 10:50 AM CDT) Pathologist [facility] Histoplasma Ab, yeast CF Negative Negative [facility] Histoplasma Ab, Immunodiffusion Negative Negative [facility] Comment: A negative complement fixation and immunodiffusion (CF/ID) result does not exclude the diagnosis of histoplasmosis. Repeat testing by CF/ID in 1-2 weeks if clinically indicated. Test Performed by: [place] [address] Floral Specialist: Angeli Harper Ph.D.; CLIA# [id number] Blood 06/04/2025 10:5 0 AM CDT 06/04/2025 1:57 PM CDT Keith Alexander MD LAB MICROBIOLOGY - GENERAL ORDERABLES Final Result Performing Organization Address [facility] de Phone Number ANGELLA [facility] Department [place] [address] [facility] * Blastomyces antibody, EIA, serum Blood (06/04/2025 10:50 AM CDT) Pathologist [facility] Blastomyces Antibody Negative Negative [facility] Comment: A single negative result does not exclude the diagnosis of blastomycosis. Repeat testing on a new sample in 7-14 days if clinically indicated. Test Performed by: [place] [address] Floral Specialist: Angeli Harper Ph.D.; CLIA# [id number] Blood 06/04/2025 10:5 0 AM CDT 06/04/2025 1:57 PM CDT Keith Alexander MD LAB MICROBIOLOGY - GENERAL ORDERABLES Final Result Performing Organization Address [facility] de Phone Number [facility] Department [place] [address] [facility] ref [facility] * Coccidioides antibodies (06/04/2025 10:50 AM CDT) [facility] Coccidioides ab comp fix Negative Negative [facility] Coccidioides IgG ImmDiff Negative Negative [facility] Coccidioides IgM ImmDiff Negative Negative [facility] Comment: The EIA may be reactive prior to complement fixation and immunodiffusion (CompF/ImmDiff), or may be falsely-reactive. Repeat testing by CompF/ImmDiff in 2-3 weeks if clinically indicated. Test Performed by: [facility] [address] [place] [address] Floral Specialist: Angeli Harper Ph.D.; CLIA# [id number] Blood 06/04/2025 10:5 0 AM CDT 06/04/2025 12:31 PM CDT Keith Alexander MD LAB BLOOD ORDERABLES Final Result Performing Organization Address [facility] de Phone Number [facility] Department [place] [address] [facility] ref [facility] * Cryptococcal Antigen, Serum Blood (06/04/2025 10:50 AM CDT) [facility] Cryptococcus ag, Serum Negative Negative Comment: The [...] GENERAL ORDERABLES Final Result Performing Organization Address City/[facility] Co de Phone Number ANGELLA [facility] [place] [address] * Aspergillus galactomannan antigen Blood (06/04/2025 10:50 AM CDT) Pathologist [facility] Aspergillus galactomannan Ag <0.500 <0.5 Index [facility] Comment: ADDITIONAL INFORMATION This is a qualitative test and the resulted index value is not indicative of disease severity. Serial testing is recommended for patients at high risk for invasive aspergillosis. This assay was performed using the FDA-cleared [employer] Aspergillus Galactomannan EIA. Test Performed by: [place] [address] Floral Specialist: Angeli Harper Ph.D.; CLIA# [id number] Blood 06/04/2025 10:5 0 AM CDT 06/04/2025 12:42 PM CDT Keith Alexander MD LAB MICROBIOLOGY - GENERAL ORDERABLES Final Result Performing Organization Address City/[facility] Co de Phone Number [facility] [place] [address] [facility] ref [facility] * (ABNORMAL) Blood gas, venous (06/04/2025 10:50 AM CDT) pH, Venous 7.37 7.32 - 7.43 PCO2, Venous 55(H) 40 - 50 mmHg [facility] PO2, Venous 36 mmHg [facility] Comment: Interpretive Data No Reference Range Established Current Interpretive Data was last revised on 2018. HCO3 Venous, Calculated 33(H) 20 - 30 mmol/L [facility] BE, venous 7 mmol/L [facility] Comment: Interpretive Data No Reference Range Established Current Interpretive Data was last revised on 2018. Blood 06/04/2025 10:5 0 AM CDT 06/04/2025 12:25 PM CDT us Keith Alexander MD LAB BLOOD ORDERABLES Final Result [facility] Department [place] [address] * XR Chest 1 View (06/04/2025 6:30 [...] MD LAB BLOOD ORDERABLES Final Resu lt [facility] Department [place] [address] * (ABNORMAL) Differential, auto (06/04/2025 4:35 AM CDT) Neutrophil abs 6.28 1.50 - 6.50 K/cumm Imm gran abs 0.07 0.00 - 0.10 K/cumm [facility] Lymphocyte abs 0.88 0.80 - 3.30 K/cumm [facility] Monocyte abs 1.13(H) 0.20 - 0.80 K/cumm [facility] Eosinophil abs 0.47 0.00 - 0.50 K/cumm [facility] Basophil abs 0.02 0.00 - 0.10 K/cumm [facility] Neutrophil pct 71.0 % [facility] Comment: Interpretive Data Percent cell count reference ranges are not reported, since discordance with absolute values may lead to misinterpretation of CBC data. Current Interpretive Data was last revised on 2018. Imm gran pct 0.8 % [facility] Comment: Interpretive Data Percent cell count reference ranges are not reported, since discordance with absolute values may lead to misinterpretation of CBC data. Current Interpretive Data was last revised on 2018. Lymphocyte pct 9.9 % [facility] Comment: Interpretive Data Percent cell count reference ranges are not reported, since discordance with absolute values may lead to misinterpretation of CBC data. Current Interpretive Data was last revised on 2018. Monocyte pct 12.8 % [facility] Comment: Interpretive Data Percent cell count reference ranges are not reported, since discordance with absolute values may lead to misinterpretation of CBC data. Current Interpretive Data was last revised on 2018. Eosinophil pct 5.3 % [facility] Comment: Interpretive Data Percent cell count reference ranges are not reported, since discordance with absolute values may lead to misinterpretation of CBC data. Current Interpretive Data was last revised on 2018. Basophil pct 0.2 % [facility] Comment: Interpretive Data Percent cell count reference ranges are not reported, since discordance with absolute values may lead to misinterpretation of CBC data. Current Interpretive Data was last revised on 2018. Blood 06/04/2025 4:35 AM CDT 06/04/2025 5:02 AM CDT us Dianna Root MD LAB BLOOD ORDERABLES Final Resu lt [facility] Department [place] [address] * (ABNORMAL) Pro B-type natriuretic peptide (06/04/2025 [...] Heart J. 2006:27:330-337. 2. Ousmane RW, Arianna QUIJANO. J. AM Eleanor Cardiol: Cardiovasc Imag. 2009;2: 216- 225. Interpretive Data Last Revised Date: 2018. Blood 06/04/2025 4:35 AM CDT 06/04/2025 5:01 AM CDT Dianna Root MD LAB BLOOD ORDERABLES Final Resu lt [facility] [place] [address] * (ABNORMAL) CBC with auto differential (06/04/2025 4:35 AM CDT) [facility] WBC 8.85 3.80 - 9.90 K/cumm Hgb 8.3(L) 13.0 - 17.5 g/dL [facility] Hct 26.7(L) 38.9 - 50.3 % [facility] Plt 219 150 - 400 K/cumm [facility] MPV 10.3 9.1 - 12.3 fL [facility] RBC 2.94(L) 4.30 - 5.80 M/cumm [facility] MCV 90.8 81.3 - 96.4 fL [facility] MCH 28.2 27.1 - 33.3 pg [facility] MCHC 31.1(L) 32.3 - 35.7 g/dL [facility] RDW CV 15.3(H) 11.1 - 14.9 % [facility] RDW SD 51.0(H) 35.7 - 48.1 fL [facility] NRBC abs 0.00 0.00 - 0.01 K/cumm [facility] Blood 06/04/2025 4:35 AM CDT 06/04/2025 5:02 AM CDT us Dianna Root MD LAB BLOOD ORDERABLES Final Resu lt Performing Organization Address [facility] de Phone Number [facility] [place] [address] * (ABNORMAL) Protime-INR (06/04/2025 4:35 AM CDT) [facility] Signature PT 20.1(H) 9.7 - 13.0 sec INR 1.84(H) 0.90 - 1.20 [facility] Comment: Interpretive data Oral anticoagulant therapeutic ranges: Venous thromboembolism prophylaxis or treatment: 2.0-3.0 CARDIOLOGY Standard range: 2.0-3.0 High-intensity range: 2.5-3.5 Refer to indication-specific guidelines for appropriate target ranges for prosthetic heart valve replacement. Current interpretive data was last revised on 2019. Blood 06/04/2025 4:35 AM CDT 06/04/2025 5:06 AM CDT Dianna Root MD LAB BLOOD ORDERABLES Final Resu lt Performing Organization Address City/[facility] Co de Phone Number [facility] [place] [address] * Phosphorus (06/04/2025 4:35 AM CDT) Pathologist [facility] Phosphorus, pl 2.6 2.3 - 4.5 mg/dL Blood 06/04/2025 4:35 AM CDT 06/04/2025 5:01 AM CDT Dianna Root MD LAB BLOOD ORDERABLES Final Resu lt Performing Organization Address City/[facility]/[place] [address] * Magnesium (06/04/2025 4:35 AM CDT) [facility] Magnesium 1.8 1.4 - 2.5 mg/dL Blood 06/04/2025 4:35 AM CDT 06/04/2025 5:01 AM CDT Dianna Root MD LAB BLOOD ORDERABLES Final Resu lt Performing Organization Address City/[facility] [place] [address] * (ABNORMAL) Comprehensive metabolic panel (06/04/2025 4:35 AM CDT) [facility] Sodium 135 135 - 145 mmol/L Potassium, pl 4.4 3.3 - 4.9 mmol/L [facility] Chloride 99 97 - 110 mmol/L [facility] CO2 29 22 - 32 mmol/L [facility] Anion gap 7 2 - 15 mmol/L [facility] BUN 23 6 - 25 mg/dL [facility] Creatinine 1.19 0.80 - 1.30 mg/dL [facility] Glucose 109 70 - 199 mg/dL [facility] Comment: Interpretive Data Fasting glucose >/= 126 [...] Calcium 9.3 8.5 - 10.3 mg/dL [facility] Bilirubin, total 0.3 0.1 - 1.2 mg/dL [facility] Protein, pl 6.6 6.5 - 8.5 g/dL [facility] Albumin 2.9(L) 3.5 - 5.0 g/dL [facility] Alk phos 228(H) 40 - 130 Units/L [facility] ALT 20 7 - 55 Units/L [facility] AST 42 10 - 50 Units/L [facility] Blood 06/04/2025 4:35 AM CDT 06/04/2025 5:01 AM CDT us Dianna Root MD LAB BLOOD ORDERABLES Final Resu lt Performing Organization Address City/[facility]/ZIP Co de Phone Number [facility] Department [place] [address] * Legionella antigen Urine (06/04/2025 3:22 AM CDT) Legionella Ag Negative Negative Comment: Interpretive Data This test detects only Legionella pneumophila serogroup 1 antigen. Testing performed by [facility] ([phone]). Current interpretive data was last revised on 2020. Urine 06/04/2025 3:22 AM CDT 06/04/2025 5:30 AM CDT us Dianna Root MD LAB MICROBIOLOGY - [facility] Final Result [facility] Department [place] [address] * ECG 12 lead (06/04/2025 3:21 AM CDT) [facility] Ventricular Rate EKG/Min 74 BPM [facility] Atrial Rate 74 BPM [facility] NE-Interval (MSEC) 196 ms [facility] QRS-Interval (MSEC) 114 ms [facility] QT-Interval (MSEC) 406 ms [facility] QTc 450 ms [facility] P [place] 34 degrees [facility] R [place] -19 degrees [facility] T [place] 16 degrees [facility] Diagnosis Normal sinus rhythm Incomplete right bundle branch block Borderline ECG No previous ECGs available Confirmed by SERENITY ARCHULETA M.D ([id number]) on 06/05/2025 8:59:03 AM [facility] 06/04/2025 3:21 AM CDT 06/05/2025 8:59 AM CDT Dianna Root MD ECG ORDERABLES Final Result [facility] * Respiratory pathogen panel Nasopharyngeal (06/04/2025 2:58 AM CDT) [facility] Influenza A RNA Not Detected Not Detected Influenza B RNA Not Detected Not Detected [facility] RSV RNA Not Detected Not Detected [facility] COVID-19 RNA Not Detected Not Detected [facility] Coronavirus 229E RNA Not Detected Not Detected [facility] Coronavirus HKU1 RNA Not Detected Not Detected [facility] Coronavirus NL63 RNA Not Detected Not Detected [facility] Coronavirus OC43 RNA Not Detected Not Detected [facility] Adenovirus DNA Not Detected Not Detected [facility] Metapneumovirus RNA Not Detected Not Detected [facility] Rhinovirus/Enterov irus RNA Not Detected Not Detected [facility] Parainfluenza 1 RNA Not Detected Not Detected [facility] Parainfluenza 2 RNA Not Detected Not Detected [facility] Parainfluenza 3 RNA Not Detected Not Detected [facility] Parainfluenza 4 RNA Not Detected Not Detected [facility] B. pertussis DNA Not Detected Not Detected [facility] B. parapertussis DNA Not Detected Not Detected [facility] C. pneumoniae DNA Not Detected Not Detected [facility] M. pneumoniae DNA Not Detected Not Detected [facility] Nasopharyngeal 06/04/2025 2: 58 AM CDT 06/04/2025 3:29 AM CDT Narrative [facility] - 06/04/2025 4:44 AM CDT Is the Patient experiencing symptoms consistent with COVID?->No Surveillance testing for transplant patient?->No Interpretive Data The M[employer] FilmArray Respiratory Panel (RP2.1) assay is a [...] assay has FDA clearance for testing of BIOLOGICAL PHOTOGRAPHER swabs. The performance of additional specimen types has been assessed by the performing laboratory. The performance characteristics of this assay have been determined by [facility] Molecular Infectious Disease Laboratory. Current interpretive data was last revised on 22. Dianna Root MD LAB [facility]OLOG[facility] Final Result Performing Organization Address City/[facility]/ZIP Co de Phone Number [facility] Department [place] [address] * MRSA Only (Staphylococcus aureus) Culture Nasal (06/04/2025 2:53 AM CDT) Report Final Report: Negative Nasal 06/04/2025 2:53 AM CDT 06/04/2025 3:29 AM CDT Narrative [facility] - 06/05/2025 6:58 AM CDT Testing performed by [facility] ([phone]). Dianna Root MD LAB MICROBIOLOGY - [facility] SUMEMRDerek KELLERKATIE Final Result Performing Organization Address [facility] Co de Phone Number [facility] Department [place] [address] * Glucose, random (Outreach) (05/02/2025 10:25 AM [...] BLOOD ORDERABLES F inal Result ANGELLA SALMON [facility] Department [place] [address] * (ABNORMAL) eGFR (05/02/2025 10:25 AM CDT) [...] LAB BLOOD ORDERABLES F inal Result ANGELLA BECK [facility] Department [place] [address] * (ABNORMAL) Differential, auto (05/02/2025 10:25 AM CDT) Neutrophil abs 6.97(H) 1.50 - 6.50 K/cumm Imm gran abs 0.13(H) 0.00 - 0.10 K/cumm [facility] Lymphocyte abs 1.24 0.80 - 3.30 K/cumm [facility] Monocyte abs 0.99(H) 0.20 - 0.80 K/cumm [facility] Eosinophil abs 0.52(H) 0.00 - 0.50 K/cumm [facility] Basophil abs 0.04 0.00 - 0.10 K/cumm [facility] Neutrophil pct 70.5 % [facility] Comment: Interpretive Data Percent cell count reference ranges are not reported, since discordance with absolute values may lead to misinterpretation of CBC data. Current Interpretive Data was last revised on 2018. Imm gran pct 1.3 % [facility] Comment: Interpretive Data Percent cell count reference ranges are not reported, since discordance with absolute values may lead to misinterpretation of CBC data. Current Interpretive Data was last revised on 2018. Lymphocyte pct 12.5 % [facility] Comment: Interpretive Data Percent cell count reference ranges are not reported, since discordance with absolute values may lead to misinterpretation of CBC data. Current Interpretive Data was last revised on 2018. Monocyte pct 10.0 % [facility] Comment: Interpretive Data Percent cell count reference ranges are not reported, since discordance with absolute values may lead to misinterpretation of CBC data. Current Interpretive Data was last revised on 2018. Eosinophil pct 5.3 % [facility] Comment: Interpretive Data Percent cell count reference ranges are not reported, since discordance with absolute values may lead to misinterpretation of CBC data. Current Interpretive Data was last revised on 2018. Basophil pct 0.4 % [facility] Comment: Interpretive Data Percent cell count reference ranges are not reported, since discordance with absolute values may lead to misinterpretation of CBC data. Current Interpretive Data was last revised on 2018. Blood 05/02/2025 10:2 5 AM CDT 05/02/2025 2:09 PM CDT us Gladys Larson NP LAB BLOOD ORDERABLES F inal Result [facility] Department [place] [address] * (ABNORMAL) Comprehensive metabolic panel, without glucose (Outreach) (05/02/2025 10:25 AM CDT) Pathologist [facility] Sodium 134(L) 135 - 145 mmol/L Potassium, pl 5.8(H) 3.3 - 4.9 mmol/L [facility] Chloride 100 97 - 110 mmol/L [facility] CO2 27 22 - 32 mmol/L [facility] Anion gap 7 2 - 15 mmol/L [facility] BUN 21 6 - 25 mg/dL [facility] Creatinine 1.90(H) 0.80 - 1.30 mg/dL [facility] Calcium 9.6 8.5 - 10.3 mg/dL [facility] Protein, pl 7.5 6.5 - 8.5 g/dL [facility] Albumin 3.8 3.5 - 5.0 g/dL [facility] Bilirubin, total 0.2 0.1 - 1.2 mg/dL [facility] Alk phos 227(H) 40 - 130 Units/L [facility] AST 25 10 - 50 Units/L [facility] ALT 19 7 - 55 Units/L [facility] Blood 05/02/2025 10:2 5 AM CDT 05/02/2025 2:09 PM CDT Gladys Larson NP LAB BLOOD ORDERABLES F inal Result ANGELLA [facility] Department [place] [address] * (ABNORMAL) CBC with auto differential (05/02/2025 10:25 AM CDT) [facility] WBC 9.89 3.80 - 9.90 K/cumm Hgb 10.0(L) 13.0 - 17.5 g/dL [facility] Hct 32.2(L) 38.9 - 50.3 % [facility] Plt 322 150 - 400 K/cumm [facility] MPV 11.1 9.1 - 12.3 fL [facility] RBC 3.41(L) 4.30 - 5.80 M/cumm [facility] MCV 94.4 81.3 - 96.4 fL [facility] MCH 29.3 27.1 - 33.3 pg [facility] MCHC 31.1(L) 32.3 - 35.7 g/dL [facility] RDW CV 14.3 11.1 - 14.9 % [facility] RDW SD 48.4(H) 35.7 - 48.1 fL [facility] NRBC abs 0.00 0.00 - 0.01 K/cumm [facility] Blood 05/02/2025 10:2 5 AM CDT 05/02/2025 2:09 PM CDT Gladys Larson NP LAB BLOOD ORDERABLES F inal Result Performing Organization Address City/State/[facility] Co de Phone Number [facility] Department [place] [address] * CT Body Outside Consult (05/02/2025 10:24 [...] images may or may not represent the yurok source data set and thus may contain changes that may lower the accuracy of this second-opinion interpretation. Electronically signed by: Amirhtaya Shipman M.D. Narrative 05/02/2025 10:38 AM CDT EXAMINATION: RADIOLOGY CONSULTATION ON OUTSIDE IMAGING STUDY STUDY INITIALLY PERFORMED: 04/26/2025 at [facility]. TYPE OF STUDY: Multiple CT images [...] IMAGING STUDY STUDY INITIALLY PERFORMED: 04/26/2025 at [facility]. TYPE OF STUDY: Multiple CT images [...] images may or may not represent the yurok source data set and thus may contain changes that may lower the accuracy of this second-opinion interpretation. Electronically signed by: Adele Shipman M.D. Lukas Adams MD [facility] CT PROCEDURES Final Resu lt * CT Body Outside Reference (05/02/2025 10:17 AM CDT) Impressions [facility] - 05/02/2025 10:17 AM CDT These images are for Reference purposes only and have not been reviewed by [facility] Radiology. There will be no report generated by a [facility] Radiologist. Narrative [facility] - 05/02/2025 10:17 AM CDT EXAMINATION: Images For Reference Purposes Only Lukas Adams MD IMG CT PROCEDURES Final Resu lt [facility] from Last 3 Months Additional Health Concerns Infection Onset Date Last Indicated Tuberculosis (rule out) 06/04/2025 06/04/20 25 Insurance Member Subscriber Plan / Payer (Ef fective 2022-Present) Name:Elmer López Relation to Subscriber:Self Name:Elmer López Payer ID:[id number] (NAIC) Type:[facility] MEDIC[facility] Address: [place] [id number] Advance Directives For more information, please contact: [phone] * Full Code (Latest Code Status on File) Date Activated Date Inactivated Comments 06/04/2025 2:17 AM 06/07/2025 7:14 PM Care Teams Content Strategy Lead Relationship Specialty Start Date End Date Naveed Mcintosh MD [address] [place] [address] PCP - General Family Medicine 10/07/19 Salas Gottlieb MD [address] [place] [address] Referring Physician Critical Care Med 06/02/25
[2025-06-28 22:33] LABS: Alanine Aminotransferase 29 U/L (6-50); Albumin Level 3.4 g/dL (3.5-5.1); Alkaline Phosphatase 110 U/L (38-126); Anion Gap 8 mmol/L (4-12); Aspartate Amino Transferase 54 U/L (17-59); Bilirubin,Total 0.5 mg/dL (0.2-1.3); Blood Urea Nitrogen 45 mg/dL (9-20); Calcium 9.1 mg/dL (8.4-10.2); Carbon Dioxide 27 mmol/L (22-30); Chloride 99 mmol/L (98-107); Estimated CRCL calculation 37 ml/min; Estimated Glomerular Filt Rate 46; Glucose 174 mg/dL (65-110); Potassium 4.9 mmol/L (3.4-5.0); Sodium 134 mmol/L (137-145); Total Protein 6.7 g/dL (6.3-8.2)
--- OUTSIDE RECORDS SUMMARY | 2025-06-28 22:33 | XMS_ITS | Clinical Summary ---
Author Organization [place] [address] [facility] Address [address] [place] [address] Care Team Providers Care Financial Reporting Analyst Name Role Phone Naveed Mcintosh MD Primary Care Provider [phone]- [phone] Allergies No known active allergies Medications meloxicam [...] Take 1 Tablet by mouth daily. Active [id number] -Fish Oil (FISH OIL) 1,000 mg (120 [...] series) 2019 INFLUENZA VACCINE (#1) 2025 Insurance [facility] [id number] Care Teams Financial Reporting Analyst Relationship Specialty Start Date End Date Naveed Mcintosh MD PCP - General Family Practice 05/18/19
--- OUTSIDE RECORDS SUMMARY | 2025-06-28 22:33 | XMS_ITS | Encounter Summary ---
Author Organization [facility] Address [address] [place] [address] Phone Care Team Providers Care Front Desk Supervisor Name Role Phone Naveed Mcintosh MD Primary Care Prov ider Salas Gottlieb MD Unavailable [phone] Yarelis Rachel FINANCIAL SERVICES ASSISTANT Unavailable [phone] Encounter Details Date Type Department Care Team (Late st Contact Info) Description 06/02/2025 Telephone [facility] Infectious Diseases [address] [place] [address] [place] [id number] Enma Tate RMA Social History Tobacco [...] on file 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 Gottlieb in the patients care team in [facility], now our notes should go to him [...] 3:27 PM CDT There are notes in [facility], I had planned to start therapy after [...] - 06/02/2025 9:[address] Sánchez [facility] called re Dr. shireen Blanco And SNEHA. Please call [phone] documented in this encounter Plan of Treatment Not on file documented as of this encounter Visit Diagnoses Not on filedocumented in this encounter Additional Health Concerns Infection Onset Date Last Indicated Resolved Time Tuberculosis (rule out) 06/04/2025 06/04/2025 documented as of this encounter Care Teams Front Desk Supervisor Relationship Specialty Start Date End Date Naveed Mcintosh MD [address] [place] [address] PCP - General Family Medicine 10/07/19 Salas Gottlieb MD [address] [place] [address] Referring Physician Critical Care Med 06/02/25 Yarelis Rachel, FINANCIAL SERVICES ASSISTANT [address] [facility] ([facility]) Mailstop [id number] [place] [address] SHOP Outpatient Logging Equipment Operator 06/08/25 06/25/25 documented as of this encounter
--- OUTSIDE RECORDS SUMMARY | 2025-06-28 22:33 | XMS_ITS | Continuity of Care Document ---
Author Organization [facility] Address [address] [place] [address] Phone Care Team Providers Care Diamond Powder Mixer Name Role Phone Dante PT, DPT, Te [...] Diagnoses Date Provider Providers Copied on Encounter [facility], [address], [place], [place], [id number], [place] tel:[phone] Joe Low back painOth symptoms and signs involving the musculoskelet al systemAbnorma l postureOther abnormalities of gait and mobility 9 Dante Tiwari. . Referring Provider: Naveed Mcintosh , [address] [place] [address], [place], [address]. tel:[phone] [facility], [id number], tel:[phone] [place] Low back painOth symptoms and signs involving the musculoskelet al systemAbnorma l postureOther abnormalities of gait and mobility Krystlehovidya Starka. . Referring Provider: Naveed Mcintosh , [address] [place] [address], [address]. tel:[phone] [facility], [id number], [place] tel:[phone] [place] Low back painOth symptoms and signs involving the musculoskelet al systemAbnorma l postureOther abnormalities of gait and mobility Krystlehovidya Mcclellan. . Referring Provider: Naveed Mcintosh , [address] [place] [address], [address]. tel:[phone] [facility], [id number], tel:[phone] [place] Low back painOth symptoms and signs involving the musculoskelet al systemAbnorma l postureOther abnormalities of gait and mobility Krystlehoffer Vy. . Referring Provider: Naveed Mcintosh , [address] [place] [address], [address]. tel:[phone] [facility], [id number], tel:[phone] [place] Low back painOth symptoms and signs involving the musculoskelet al systemAbnorma l postureOther abnormalities of gait and mobility Dante Tiwari. . Referring Provider: Naveed Mcintosh , [address] [place] [address], [address]. tel:[phone] [facility], [id number], tel:[phone] [place] Low back painOth symptoms and signs involving the musculoskelet al systemAbnorma l postureOther abnormalities of gait and mobility 0-201 9 Dante Tiwari. . Referring Provider: Naveed Mcintosh , [address] [place] [address], [address]. tel:[phone] [facility] [address], [id number], tel:[phone] [place] Low back painOth symptoms and signs involving the musculoskelet al systemAbnorma l postureOther abnormalities of gait and mobility 7201 9 Dante Tiwari. . Referring Provider: Naveed Mcintosh , [address] [place] [address], [address]. tel:[phone] [facility] [address], [id number], tel:[phone] [place] Low back painOth symptoms and signs involving the musculoskelet al systemAbnorma l postureOther abnormalities of gait and mobility 5201 9 Rick Mcclellan. . Referring Provider: Naveed Mcintosh , [address] [place] [address], [address]. tel:[phone] Family History Family Member Type Diagnosis Age At Onset No Information Payers Payer name Insurance type Covered alliance party ID Authoriza tion(s) AARP Medicare Complete CI [id number] Social History Type Description Quantity Date Captured [...]
--- OUTSIDE RECORDS SUMMARY | 2025-06-28 22:33 | XMS_ITS | Encounter Summary ---
Author Organization [facility] Address [address] [place] [address] Phone Care Team Providers Care Infant Room Teacher Name Role Phone Naveed Mcintosh MD Primary Care Prov ider Salas Gottlieb MD Unavailable [phone] Yarelis Rachel MAP MAKER Unavailable [phone] Encounter Details Date Type Department Care Team (Late st Contact Info) Description 05/30/2025 Telephone [facility] Infectious Diseases [address] [place] [address] [place] [id number] Enma Tate RMA Social History Tobacco Use Types Packs/Day Years Used Date Smoking Tobacco: Former Cigarettes 1.5 65 0 03/12/1957 - 09/19/2018 Smokeless Tobacco: Never Comments:Quit 08/2019 Alcohol Use Standard Drinks/Week Comments Not Currently 0 (1 standard drink = 0.6 oz pur e alcohol) Sex and Gender Information Value Date Recorded Sex Assigned at Not on file 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 He spoke to his radial drill operator for plastic who recommended he go to the ER for evaluation. Advised to follow radial drill operator for plastic. Pt will go to [facility] * Telephone Encounter - Enma Tate RMA - 05/30/2025 8:22 AM CDT Pt wants to go to the ER for sob, his o2 is 82%, hx of COPD. He wants to speak w/ the nurse. Pleasecall [phone] documented in this encounter Plan of Treatment Not on file documented as of this encounter Visit Diagnoses Not on filedocumented in this encounter Additional Health Concerns Infection Onset Date Last Indicated Resolved Time Tuberculosis (rule out) 06/04/2025 06/04/2025 documented as of this encounter Care Teams Infant Room Teacher Relationship Specialty Start Date End Date Naveed Mcintosh MD [address] [place] [address] PCP - General Family Medicine 10/07/19 Salas Gottlieb MD [address] [place] [address] Referring Physician Critical Care Med 06/02/25 Yarelis Rachel LCSW [address] [facility] Mailstop [id number] [place] [address] SHOP Outpatient Etcher Enameling 06/08/25 06/25/25 documented as of this encounter
--- NOTE | 2025-06-28 22:55 | ED_ITS ---
HPI - SOB/Dyspnea General Chief Complaint: Shortness of Breath/Dyspnea Stated Complaint: SOB, HYPOXIC, ON NRB 15L Source: patient, family and RN notes reviewed Mode of arrival: EMS Limitations: no limitations History of Present Illness HPI Narrative: 80 yo presents with shortness of breath. Hx COPD , found to be saturating 83% on 4LPM Placed on 15L NRB which improved SpO2 to 100%. Has had a mild productive cough all day. Lives at home with son/son's family. Had been at [place] and on Abx for MAC. In general, has been having more frequent hospitalizations. Had had crakles. History drop foot. Not on anticoagulation other than 81mg ASA, still experiencing frequent ecchymosis. Increased fatigue, sleeping most of today. Has also been confused today per son. Quit smoking 10+ years ago. No sick contacts. No fevers but chills, to the point that son describes rigors yesterrday. No chest pain. Related Data Home Medications ?Medication ?Instructions ?Recorded ?Confirmed ?Last Taken ?Type acetaminophen 500 mg tablet 1,000 mg PO Q6H PRN Pain 03/18/23 06/29/25 05/30/25 History (Tylenol Extra Strength) esomeprazole magnesium 20 mg 40 mg PO DAILY 06/15/25 06/29/25 06/28/25 08:00 History capsule,delayed release 40 mg ethambutol 400 mg tablet 1,200 mg PO DAILY 06/15/25 06/29/25 06/28/25 08:00 History 1,200 mg furosemide 20 mg tablet 40 mg PO DAILY 06/15/25 06/29/25 06/28/25 08:00 History 40 mg losartan 25 mg tablet 25 mg PO DAILY 06/15/25 06/29/25 06/28/25 08:00 History 25 mg tamsulosin 0.4 mg capsule 0.4 mg PO BID 06/15/25 06/29/25 06/28/25 08:00 History 0.4 mg Allergies Allergy/AdvReac Type Severity Reaction Status Date / Time clonazepam AdvReac Severe Drowsy Verified 05/30/25 19:29 roflumilast (From [facility]) AdvReac Severe Diarrhea Verified 05/30/25 19:29 [facility] Past Medical History Medical History (Updated 07/02/25 @ 19:24 by Whit Romo MD) Physical deconditioning NSVT (nonsustained ventricular tachycardia) Dysfunction of left eustachian tube Leukocytosis Heart failure with mildly reduced ejection fraction Chronic pulmonary aspergillosis Major depressive disorder, recurrent, mild Left foot drop Chronic kidney disease, stage 3 Spinal stenosis, lumbar region without neurogenic claudication Ischemic cardiomyopathy Echocardiogram 09/2021: Mildly reduced left ventricular systolic function EF of 45-50%, grade 1 diastolic dysfunction, inferior wall inferior septal wall basal inferior wall and mid inferior lateral wall hypokinesis with mild left atrial and large SVT (supraventricular tachycardia) 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 History of tobacco use Polio (1951) Other chronic pain Aortic stenosis Mild - Echo 05/15/2022 NSTEMI (non-ST elevated myocardial infarction) (08/2019) Atherosclerotic heart disease of [place] coronary artery without angina pectoris Abdominal aortic aneurysm, without rupture Seen on CT scan on 02/09/2018 Restless legs syndrome Surgical History Surgical History History of tonsillectomy and adenoidectomy History of repair of rotator cuff bilateral History of colonoscopy with polypectomy History of bowel resection due to obstruction Presence of coronary angioplasty implant and graft History of coronary artery stent placement X2 History of mandibular surgery (1986) reconstructive surgery right mandible related to cancer Family History Family History Mother Diabetes mellitus Acute myocardial infarction Father Colon cancer COPD (chronic obstructive pulmonary disease) Sibling Colon cancer Acute myocardial infarction Lung cancer COPD (chronic obstructive pulmonary disease) Sibling COPD (chronic obstructive pulmonary disease) Sibling Congestive heart failure Sibling Dementia Social History Social History Social History: Surrogate medical decision maker: Yessi Morgan, daughter. Code status: Full code. But he states he would not want to be on a ventilator long-term have a tracheostomy or feeding tube. Smoking packs per day: 1.5 Smoking cigarettes per day: 30.0 Years smoked: 60 Smoking pack-years: 90.00 Smoking status: Former smoker Tobacco type: cigarettes Second hand tobacco smoke exposure: No Alcohol intake: never Substance use: never Substance use type: does not use Other substance usage details: quit alcohol in 2010 Last use: Last alcohol use 2010 Do You Feel Safe in your Home?: Yes Lack of Transportation: No Lack of Food: Never True Current Housing: I Have Housing Concerned About Future Housing: No Difficulty Paying Gas/Electric Bills: No Difficulty Paying for Meds: No Currently Unemployed: No Education: High School Diploma/GED Difficulty w/ Childcare or Family Care: No Living arrangements: with family Additional living arrangements comments: . Lives in [place] with son and [id number]. 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: retired Additional occupation/education comments: [employer] Spiritual care concerns: No Agree to blood products: Yes Exam 2 Narrative: GENERAL: Chronically ill appearing, in no acute distress. HEAD: Normocephalic, atraumatic. EYES: Non injected, non icteric ENT: Nares clear, no rhinorrhea or epistaxis. Gross auditory acuity intact. Dry mucous membranes. NECK: Supple. No meningismus. CHEST: Speaking in full sentences. No respiratory distress. On nasal cannula at 2 liters/minute at the time of exam and saturating between 97 and 98%. Coarse bilateral breath sounds although right greater than left. HEART: Regular rate and rhythm. . ABDOMEN: Soft, nondistended. No rigidity or guarding. Not peritoneal EXTREMITIES: Normal range of motion. 1+ right lower extremity edema. Trace left lower extremity edema. SKIN: Warm, dry, no rash. NEURO: No focal deficits. Alert and oriented. Answering questions. Following commands. Normal speech without aphasia or dysarthria. PSYCH:Congruent mood and affect. Course Vital Signs Vital signs: Vital Signs Temperature 98 F 06/28/25 21:52 Pulse Rate 82 06/28/25 21:52 Respiratory Rate 18 06/28/25 21:52 Blood Pressure 111/47 L 06/28/25 21:52 Pulse Oximetry 97 06/28/25 21:52 Oxygen Delivery Non-Rebreather Mask 06/28/25 21:52 Oxygen Flow Rate 7 06/28/25 21:52 Temperature 97.0 F L 07/02/25 14:00 Pulse Rate 67 07/02/25 16:00 Respiratory Rate 20 07/02/25 14:17 Blood Pressure 107/76 07/02/25 14:00 Pulse Oximetry 95 07/02/25 14:00 Oxygen Delivery Room Air 07/02/25 08:00 Oxygen Flow Rate 2.5 07/02/25 07:57 Fraction of Inspired Oxygen 28.5 07/02/25 08:00 MDM - SOB/Dyspnea MDM Narrative Medical decision making narrative: Patient presents with shortness of breath. Hypoxic for EMS, at 83% on 4LPM, placed on 15L NRB with improved SpO2. In the emergency department he is afebrile with vital signs that initially show a low diastolic blood pressure but with a mean arterial pressure of high 60s. Repeat is markedly improved without interval intervention. Saturating appropriately initially on non-rebreather mask and then down titrated to nasal cannula at 4 L which is his home setting. Per review of the EMR, patient's creatinine has been variable although it does appear to be higher than what his likely baseline is so will treat as a mild SANDI with initially 500 cc IV fluid. Leukocytosis with a normocytic anemia. The latter is stable from previous. BNP mildly elevated but not to a degree to suggest acute heart failure especially for the reference range of the assay for patient's age. Viral swab and troponin normal. Treated as COPD exacerbation. I suspect patient might have had some CO2 narcosis that has been blown off with NRB as mentation seems better. However, he still appears weak, unwell. Discussed discharge versus admission. The latter is not benign, and patient and son are concerned with his frequent hospitalizations. He seems to becoming more and more weak, losing ADLs and the time between being dicharged home and starting therapies creates a delay that son is worried that he declines at home after a few days. Extensive discussion about admitting with PT/OT consult and nutritional consult as well as care coordination as patient's son would like more information about placement (assisted living versus SNF / intermediate) with or without hospice. He does as, Is my father dying and we reviewed some of the indicators that patient's timeline is not likely to be hours/days but that he would likely be a good candidate for hospice and getting established with them sooner rather than later may prolong his life and lead to better quality as well as supporting family. == Hospice Pulmonary Disease Given patient's COPD, recommend continuing conversation of goals of care to establish values and wishes as discuss further treatments and interventions. Of note, Medicare guidelines for hospice eligibility for patients with severe chronic lung disease are as follows: Patient will be considered to be in the terminal stage (life expectancy of 6 months or less) if they meet ALL of the following criteria: 1. Patient has all of the following: Difficulty breathing at rest, little or no response to bronchodilators, decreased functional capacity (example bed to chair existence, fatigue and cough) AND 2. Progression of disease evidenced by a recent history of increasing office, home, or ED visits and/or hospitalizations for pulmonary infection and/or respiratory failure. 3. Documentation within the past 3 months of hypoxemia at rest on room air (pO2 <55mmHg by ABG) or oxygen saturation <88%, hypercapnia evidenced by pCO2 >50mmHg. Supporting documentation includes: Cor pulmonale and right heart failure, unintentional progressive weight loss. Given this, patient might not currently meet criteria but a palliative care consult might be appropriate. == Extensive conversation was had with patient and son to determine code status. Differential Diagnosis Differential diagnosis: Likely acute exacerbation of chronic obstructive airways disease, congestive heart failure, community acquired pneumonia, pulmonary embolism and other (acute viral syndrome; ACS) Lab Data Attestation: I reviewed the patient's lab results. Lab results narrative: Urinalysis unremarkable 06/30/25 08:09 07/02/25 06:16 Labs: Lab Results 06/28/25 06/28/25 06/29/25 Range/Units 22:17 23:02 00:41 WBC 14.8 H (4.5-10.0) K/mm3 RBC 2.88 L (4.6-6.20) M/mm3 Hgb 8.2 L (14.0-18.0) g/dL Hct 27.2 L (42.0-52.0) % MCV 94.4 (80-100) fl MCH 28.5 (26-34) pg MCHC 30.1 L (32-36) g/dl RDW 16.6 H (11.5-14.5) % Plt Count 251 (150-375) k/mm3 MPV 10.2 (7.4-10.4) fl Immature Gran % (Auto) 1.3 H (0-0.5) % Neut % (Auto) 87.7 H (45.5-73.1) % Lymph % (Auto) 4.0 L (18.3-44.2) % Story % (Auto) 5.1 (2.6-8.5) % Eos % (Auto) 1.8 (0-4.4) % Baso % (Auto) 0.1 L (0.2-1.2) % Lymph # (Auto) 0.59 L (0.9-3.2) K/mm3 Story # (Auto) 0.8 H (0.1-0.6) K/mm3 Eos # (Auto) 0.3 (0-0.3) K/mm3 Baso # (Auto) 0.0 (0.0-0.1) K/mm3 Abs Immat Gran (auto) 0.19 H (0.00-0.031) K/mm3 Absolute Neuts (auto) 12.9 H (1.3-6.7) K/mm3 Absolute Nucleated RBC 0.000 (0.0-0.012) K/mm3 Band Neutrophils % 0 (0-6) % Nucleated RBC % 0.0 (0.0-0.2) % Toxic Granulation Present Platelet Estimate Adequate (Adequate) Hypochromasia 1+ Ovalocytes 1+ Schistocytes None seen ESR (0-20) mm/hr D-Dimer 1.27 H (<0.48) ug/mL Sodium 134 L (137-145) mmol/L Potassium 4.9 (3.4-5.0) mmol/L Chloride 99 (98-107) mmol/L Carbon Dioxide 27 (22-30) mmol/L Anion Gap 8 (4-12) mmol/L BUN 45 H (9-20) mg/dL Creatinine 1.46 H (0.7-1.3) mg/dL Estim Creat Clear Calc 37 ml/min Estimated GFR 46 L (59 - ) Glucose 174 H (65-110) mg/dL Calcium 9.1 (8.4-10.2) mg/dL Phosphorus (2.5-4.5) mg/dL Magnesium 2.1 (1.6-2.3) mg/dL Total Bilirubin 0.5 (0.2-1.3) mg/dL AST 54 (17-59) U/L ALT 29 (6-50) U/L Alkaline Phosphatase 110 (38-126) U/L Troponin I < 0.012 (0.000-0.034) ng/mL C-Reactive Protein (<1.0) mg/dL NT-Pro-B Natriuret Pep 669 H (19.9-100) pg/mL Total Protein 6.7 (6.3-8.2) g/dL Albumin 3.4 L (3.5-5.1) g/dL Procalcitonin ng/mL Urine Color (Yellow) Urine Appearance (Clear) Urine pH (5.0-9.0) Ur Specific [place] (1.001-1.035) Urine Protein (Negative) mg/dL Urine Glucose (UA) (Negative) mg/dL Urine Ketones (Negative) mg/dL Ur Blood (Man) (Negative) Urine Nitrate (Negative) Urine Bilirubin (Negative) Urine Urobilinogen (<2.0) mg/dL Leukocyte Esterase Rfl (Negative) ROBIN/UL Influenza A (RT-PCR) Negative (Negative) Influenza B (RT-PCR) Negative (Negative) RSV (RT-PCR) Negative (Negative) SARS-CoV-2 RNA (RT-PCR) Negative (Negative) 06/29/25 06/30/25 Range/Units 03:50 08:09 WBC 7.4 (4.5-10.0) K/mm3 RBC 2.83 L (4.6-6.20) M/mm3 Hgb 7.9 L (14.0-18.0) g/dL Hct 26.8 L (42.0-52.0) % MCV 94.7 (80-100) fl MCH 27.9 (26-34) pg MCHC 29.5 L (32-36) g/dl RDW 16.9 H (11.5-14.5) % Plt Count 253 (150-375) k/mm3 MPV 10.0 (7.4-10.4) fl Immature Gran % (Auto) 0.9 H (0-0.5) % Neut % (Auto) 82.5 H (45.5-73.1) % Lymph % (Auto) 11.1 L (18.3-44.2) % Story % (Auto) 5.4 (2.6-8.5) % Eos % (Auto) 0.0 (0-4.4) % Baso % (Auto) 0.1 L (0.2-1.2) % Lymph # (Auto) 0.82 L (0.9-3.2) K/mm3 Story # (Auto) 0.4 (0.1-0.6) K/mm3 Eos # (Auto) 0.0 (0-0.3) K/mm3 Baso # (Auto) 0.0 (0.0-0.1) K/mm3 Abs Immat Gran (auto) 0.07 H (0.00-0.031) K/mm3 Absolute Neuts (auto) 6.1 (1.3-6.7) K/mm3 Absolute Nucleated RBC 0.000 (0.0-0.012) K/mm3 Band Neutrophils % Not Reportable (0-6) % Nucleated RBC % 0.0 (0.0-0.2) % Toxic Granulation Platelet Estimate Adequate (Adequate) Hypochromasia 1+ Ovalocytes 1+ Schistocytes None seen ESR > 140 H (0-20) mm/hr D-Dimer (<0.48) ug/mL Sodium 140 (137-145) mmol/L Potassium 4.4 (3.4-5.0) mmol/L Chloride 104 (98-107) mmol/L Carbon Dioxide 29 (22-30) mmol/L Anion Gap 7 (4-12) mmol/L BUN 25 H D (9-20) mg/dL Creatinine 1.10 (0.7-1.3) mg/dL Estim Creat Clear Calc 50 ml/min Estimated GFR > 60 (59 - ) Glucose 119 H (65-110) mg/dL Calcium 9.5 (8.4-10.2) mg/dL Phosphorus 4.0 (2.5-4.5) mg/dL Magnesium 2.1 (1.6-2.3) mg/dL Total Bilirubin (0.2-1.3) mg/dL AST (17-59) U/L ALT (6-50) U/L Alkaline Phosphatase (38-126) U/L Troponin I (0.000-0.034) ng/mL C-Reactive Protein 9.7 H (<1.0) mg/dL NT-Pro-B Natriuret Pep (19.9-100) pg/mL Total Protein (6.3-8.2) g/dL Albumin (3.5-5.1) g/dL Procalcitonin 0.1 ng/mL Urine Color Yellow (Yellow) Urine Appearance Clear (Clear) Urine pH 6.0 (5.0-9.0) Ur Specific [place] 1.014 (1.001-1.035) Urine Protein Negative (Negative) mg/dL Urine Glucose (UA) Negative (Negative) mg/dL Urine Ketones Negative (Negative) mg/dL Ur Blood (Man) Negative (Negative) Urine Nitrate Negative (Negative) Urine Bilirubin Negative (Negative) Urine Urobilinogen 0.2 (<2.0) mg/dL Leukocyte Esterase Rfl Negative (Negative) ROBIN/UL Influenza A (RT-PCR) (Negative) Influenza B (RT-PCR) (Negative) RSV (RT-PCR) (Negative) SARS-CoV-2 RNA (RT-PCR) (Negative) ABG Data ABG results: 06/29/25 01:26 Puncture Site Right radial ABG pH 7.374 ABG pCO2 48.8 H ABG pO2 112.8 H ABG PO2/FiO2 Ratio 4.03 ABG HCO3 27.8 H ABG O2 Saturation 98.0 ABG O2 Content 18.2 ABG Base Excess 1.9 A-a Gradient 29.3 Oxyhemoglobin 96.8 Total Hemoglobin 13.3 O2 Delivery Device Nasal cannula O2 Liters/Min 2.0 FiO2 28 Attestation: I personally reviewed and interpreted this ABG as follows: Interpretation: ABG without significant CO2 retention, appropriate pH Imaging Data Attestation: I personally reviewed and interpreted this imaging study as follows: My impression: Right-sided pleural effusion appreciated on my independent interpretation chest x-ray. Radiologist's impression: CTA PE STat Rad: No definite pulmonary embolus identified, but evaluation of the distal pulmonary arterial branches in the lower lobes is limited by motion artifact. Atherosclerotic changes of the aorta. No aortic aneurysm or dissection. Trace right greater than left pleural effusions. Patchy consolidations bilaterally, concerning for infectious/inflammatory process. Emphysematous changes. Secretions in the mainstem bronchi and right lower lobe bronchi. Prominence of bronchial espinal, concerning for bronchitis. Bronchiectasis Incidental findings Prominent mediastinal and hilar lymph nodes. Splenomegaly. Calcified granuloma in the spleen. Small hepatic cyst. ECG Data EKG #1: Attestation: I personally reviewed and interpreted this ECG as follows: ECG completion date: 06/28/25 ECG completion time: 22:06 Interpretation: Normal sinus rhythm at a rate of 76 beats per minute. NC interval is slightly prolonged at 210 milliseconds consistent with a first-degree AV block. QRS 117. QT/QTC 403/456. T-wave inversion in 3 but upright in contiguous inferior leads. There is also T-wave inversion in V3, possibly due to lead placement. It almost appears biphasic but not with similar appearance in V2 that would be concerning for [facility]. Discharge Plan Discharge Clinical Impression: Shortness of breath, SANDI (acute kidney injury), Pleural effusion on right, Leukocytosis, Normocytic anemia, COPD exacerbation Patient Disposition: Still a Patient Condition: Stable
[2025-06-28 23:04] LABS: Band Neutrophils Percent 0 % (0-6); Hypochromasia 1+; Ovalocytes 1+; Schistocytes None Seen; Toxic Granulation Present
[2025-06-28] MEDS: SODIUM CHLORIDE 0.9% IV 500 ML 999 ML IV CONT (23:10)
[2025-06-28 23:22] LABS: NT Pro B Type Natriuretic Pept 669 pg/mL (19.9-100)
[2025-06-28 23:23] LABS: Troponin I < 0.012 ng/mL (0.000-0.034)
[2025-06-28 23:44] LABS: Influenza A QL RT-PCR Negative (Negative); Influenza B QL RT-PCR Negative (Negative); RSV RNA, RT-PCR Negative (Negative); SARS-CoV-2 RNA PCR Negative (Negative)
[2025-06-29] VITALS (33 sets, daily range): BP systolic 101–147; BP diastolic 42–72; PULSE 60–88; RESP 13–25; TEMP 36.4–37.1; O2SAT 90–100; BMI 23.1
[2025-06-29 01:06] LABS: Magnesium 2.1 mg/dL (1.6-2.3)
[2025-06-29] MEDS: IPRATROPIUM 0.5 MG/ALBUTEROL SULFATE 2.5 MG AMPUL.NEB 3 ML INHALATION ×4 (01:15→20:05)
[2025-06-29 01:48] LABS: Alveolar/Arterial O2 Gradient 29.3 mmHg; Fractional Inspired Oxygen 28 %; HCO3 ABG 27.8 mEq/l (22.0-26.0); Oxygen Content ABG 18.2 %vol (16.0-22.0); Oxygen Saturation ABG 98.0 % (95.0-100.0); PCO2 ABG 48.8 mmHg (35.0-45.0); PO2 ABG 112.8 mmHg (80.0-100.0); PO2 FiO2 Ratio Arterial Blood 4.03 %
[2025-06-29 01:54] LABS: Liters per Minute 2.0 LPM; Modified Allen's Test Pass; Site Drawn RIGHT RADIAL
[2025-06-29] MEDS: SODIUM CHLORIDE 0.9% IV 1,000 ML 999 ML IV CONT (02:15)
[2025-06-29] MEDS: BENZONATATE 100 MG CAPSULE PO (02:15)
[2025-06-29] MEDS: MAGNESIUM SULF 1 GM/D5W 100 ML 1 GM/100 ML BAG IVPB (02:16)
[2025-06-29] MEDS: cefTRIAXone 1 GM in SODIUM CHLORIDE 0.9% IV 50 ML 100 ML IVPB (03:46)
[2025-06-29] MEDS: AZITHROMYCIN IV 500 MG in SODIUM CHLORIDE 0.9% IV 250 ML IVPB (03:49)
[2025-06-29] MEDS: ALBUTEROL SULFATE NEB 2.5 MG/3 ML INH INHALATION (03:50)
[2025-06-29 03:57] LABS: Add Urine Microscopic? NO; Appearance Urine Clear (Clear); Glucose Urine UA Negative (Negative); Leukocyte Esterase Ur Negative LEU/UL (Negative); Nitrate Urine Negative (Negative); Specific Grav Ur 1.014 (1.001-1.035)
--- NOTE | 2025-06-29 05:03 | ADMGEN ---
This patient, Russell Morse, was admitted to IMU Room 202-01. Patient/family oriented to hospital policies and general routines including ID bracelet, bed and alarms, visiting hours, pain management, procedures, bathroom and other care routines, personal items, smoking policy, room service/diet, and visiting hours. Information on how to activate the Rapid Response Team has been discussed. Patient/Family are encouraged to report perceived risks to care and to ask questions if they do not understand what they are told or what they should do.
[2025-06-29] MEDS: TAMSULOSIN HCL 0.4 MG CAPSULE PO ×2 (10:28→17:38)
[2025-06-29] MEDS: ETHAMBUTOL HCL 400 MG TABLET 1200 MG PO (10:28)
--- NOTE | 2025-06-29 13:47 | P.CDI_ITS ---
CDI Query Clarification Request BMI: 23.2 Nutritional Diagnostic Statement: Please refer to the comprehensive nutrition assessment for further information. If you agree with diagnosis of Severe Protein Calorie Malnutrition as related to inadequate protein-energy intake with increased protein-energy needs in setting of chronic disease or condition as evidenced by significant weight loss of 9% (17 ibs) in 2 months. Please specify severity if known: * Mild * Moderate * Severe * Other/Unknown <Sadie Gilmore RN - Last Filed: 06/29/25 13:48> Clarified Diagnosis Clarified Diagnosis: Moderate Protein Calorie Malnutrition Weight 76kg. Has gradual weight loss 94.5kg in 01/2023. 71.8-83.7kg in April <Mita Gaytan APRN - Last Filed: 07/01/25 07:15>
[2025-06-29] MEDS: MORPHINE SULFATE (*CRX) 30 MG TABCR PO (14:44)
[2025-06-29] MEDS: FENOFIBRATE NANOCRYSTALLIZED 145 MG TABLET PO (14:44)
[2025-06-29] MEDS: LORazepam (*CRX) 0.5 MG TABLET PO (14:44)
[2025-06-29] MEDS: ASPIRIN 81 MG ENTERIC TABLET PO (14:44)
[2025-06-29] MEDS: ATORVASTATIN 40 MG TABLET 80 MG PO (14:44)
[2025-06-29] MEDS: PANTOPRAZOLE 40 MG TABLET PO (14:45)
[2025-06-29] MEDS: TOBRAMYCIN/DEXAMETHASONE OP 2.5 ML BTL 1 DROP EACH EYE ×3 (14:45→20:19)
[2025-06-29] MEDS: FUROSEMIDE 40 MG TABLET PO (14:45)
[2025-06-29] MEDS: SERTRALINE HCL 50 MG TABLET PO (14:45)
--- NOTE | 2025-06-29 15:46 | PHAR ---
VERIFIED HOME MED SULINDAC 200MG 1 TAB BID
[2025-06-29] MEDS: buPROPion HCL SR (12 HR) 150 MG TAB PO (17:38)
--- NOTE | 2025-06-29 18:32 | PM.IMHP ---
H&P: HPI History of Present Illness Date/Time: 06/29/25 10:35 Chief Complaint: Shortness of breath with activity Narrative: Mr. Fuentes is an 80-year-old man with a history of COPD, SNEHA, recent admission for acute respiratory failure and transferred to [facility], who was recently discharged 2 days ago and presented to the hospital for acute respiratory failure with activity. He was recently admitted from 06/15 to 06/23 and transferred to [facility]. Pulmonary and ENT were consulted during admission. Pulmonary consulted, Dr. Vigil: SNEHA in sputum, multiple pulmonary infections requiring antibiotics on many date during 2023 and 2024. He saw [facility] ID on May 02 while inpatient at [facility], was started on current regimen without azithromycin due to hearing loss; he is on rifabutin 300 mg a day, ethambutol 1200 mg a day. SNEHA always requires 3 medications, so he will need something to replace azithromycin. Ina with the ID team called today, said that he needs ot be on azithromycin 250 mg a day decreased from 500 mg; this is lower due to the dose related hearing loss. He will continue rifabutin 300 mg and EMB 1200 mg. Follow up appointment at [facility] June 27. I restarted azithromycin 250 mg on Jun 23. Planning follow up with pulmonary. ENT evaluated and he was noted to have impacted cerumen. Recommended flonase BID for 2 months. Follow up with ENT clinic. He reports limited activity, mostly bed to commode at the outside hospital. When he got home he had shortness of breath with activity and was unable to recover easily. Family at bedside notes that his saturations have been decreasing gradually over the last few days. Recovery when ambulating is slow, often 15 minutes or more and patient has a lot of anxiety when this happens. EMS was called and he was placed on a nonrebreather, weaned back to 4L I called [facility] ID clinic and he has follow up August 08 11:00. Waiting for a call back to verify antibiotic stop date. Rifabutin is not available in the hospital. [facility] Past Medical History Medical History (Updated 06/30/25 @ 08:37 by Mita Gaytan APRN) NSVT (nonsustained ventricular tachycardia) Dysfunction of left eustachian tube Leukocytosis Heart failure with mildly reduced ejection fraction Chronic pulmonary aspergillosis Major depressive disorder, recurrent, mild Left foot drop Chronic kidney disease, stage 3 Spinal stenosis, lumbar region without neurogenic claudication Ischemic cardiomyopathy Echocardiogram 09/2021: Mildly reduced left ventricular systolic function EF of 45-50%, grade 1 diastolic dysfunction, inferior wall inferior septal wall basal inferior wall and mid inferior lateral wall hypokinesis with mild left atrial and large SVT (supraventricular tachycardia) 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 History of tobacco use Polio (1951) Other chronic pain Aortic stenosis Mild - Echo 05/15/2022 NSTEMI (non-ST elevated myocardial infarction) (08/2019) Atherosclerotic heart disease of [place] coronary artery without angina pectoris Abdominal aortic aneurysm, without rupture Seen on CT scan on 02/09/2018 Restless legs syndrome Surgical History Surgical History History of tonsillectomy and adenoidectomy History of repair of rotator cuff bilateral History of colonoscopy with polypectomy History of bowel resection due to obstruction Presence of coronary angioplasty implant and graft History of coronary artery stent placement X2 History of mandibular surgery (1986) reconstructive surgery right mandible related to cancer Family History Family History Mother Diabetes mellitus Acute myocardial infarction Father Colon cancer COPD (chronic obstructive pulmonary disease) Sibling Colon cancer Acute myocardial infarction Lung cancer COPD (chronic obstructive pulmonary disease) Sibling COPD (chronic obstructive pulmonary disease) Sibling Congestive heart failure Sibling Dementia Social History Social History Social History: Surrogate medical decision maker: Yessi Morgan, daughter. Code status: Full code. But he states he would not want to be on a ventilator long-term have a tracheostomy or feeding tube. Smoking packs per day: 1.5 Smoking cigarettes per day: 30.0 Years smoked: 60 Smoking pack-years: 90.00 Smoking status: Former smoker Tobacco type: cigarettes Second hand tobacco smoke exposure: No Alcohol intake: never Substance use: never Substance use type: does not use Other substance usage details: quit alcohol in 2010 Last use: Last alcohol use 2010 Do You Feel Safe in your Home?: Yes Lack of Transportation: No Lack of Food: Never True Current Housing: I Have Housing Concerned About Future Housing: No Difficulty Paying Gas/Electric Bills: No Difficulty Paying for Meds: No Currently Unemployed: No Education: High School Diploma/GED Difficulty w/ Childcare or Family Care: No Living arrangements: with family Additional living arrangements comments: . Lives in [place] with son and [id number]. 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: retired Additional occupation/education comments: [employer] Spiritual care concerns: No Agree to blood products: Yes Meds Home Medications and Allergies Home Medications ?Medication ?Instructions ?Recorded ?Confirmed ?Type acetaminophen 500 mg tablet 1,000 mg PO Q6H PRN Pain 03/18/23 06/29/25 History (Tylenol Extra Strength) aspirin 81 mg tablet,delayed 81 mg PO DAILY #90 tabs 06/15/23 06/29/25 Rx release fenofibrate 160 mg tablet 160 mg PO DAILY #90 tabs 09/16/23 06/29/25 Rx nebulizer accessories #1 ea 04/12/24 06/29/25 Rx nebulizer and compressor #1 ea 04/12/24 06/29/25 Rx linaclotide 290 mcg capsule See Rx Instructions .Route 04/28/24 06/29/25 Rx (Linzess) .COMPLEX #90 caps albuterol sulfate 90 mcg/actuation 2 puff inhalation Q4H PRN 10/03/24 06/29/25 Rx aerosol inhaler Shortness Of Breath Or Wheezing #8.5 grams baclofen 10 mg tablet 10 mg PO Q12H PRN muscle spasm 12/02/24 06/29/25 History albuterol sulfate 2.5 mg/3 mL 2.5 mg (3 mL) inhalation Q4H PRN 12/08/24 06/29/25 Rx (0.083 %) solution for nebulization shortness of breath or wheezing #90 mL nitroglycerin 0.4 mg sublingual 0.4 mg sublingual Q5M PRN chest 12/08/24 06/29/25 Rx tablet pain #25 tabs bupropion HCl 150 mg tablet,12 hr 150 mg PO BID #180 tabs 12/28/24 06/29/25 Rx sustained-release metoprolol succinate 50 mg 50 mg PO HS #90 tabs 12/29/24 06/29/25 Rx tablet,extended release 24 hr lorazepam 0.5 mg tablet 0.5 mg PO BID PRN anxiety #60 tabs 03/21/25 06/29/25 Rx tobramycin 0.3 %-dexamethasone 0.1 1 drp EACH EYE QID #10 mL 04/05/25 06/29/25 Rx % eye drops,suspension sulindac 200 mg tablet 200 mg PO BID #180 tabs 04/07/25 06/29/25 Rx atorvastatin 80 mg tablet 80 mg PO DAILY #90 tabs 04/11/25 06/29/25 Rx sertraline 50 mg tablet 50 mg PO DAILY #90 tabs 04/20/25 06/29/25 Rx benzonatate 200 mg capsule See Rx Instructions .Route 04/26/25 06/29/25 Rx .COMPLEX #90 caps glycopyrrolate 9 mcg-formoterol 2 puff inhalation BID #10.7 grams 04/28/25 06/29/25 Rx 4.8 mcg HFA aerosol inhaler (Bevespi Aerosphere) hydroxyzine HCl 25 mg tablet 25 mg PO QID PRN anxiety #50 tabs 05/19/25 06/29/25 Rx trazodone 100 mg tablet 100 mg PO HS Insomnia #90 tabs 05/24/25 06/29/25 Rx budesonide 160 mcg-glycopyr 9 2 inh inhalation .q12hr 06/15/25 06/29/25 History mcg-formot 4.8 mcg/actuation HFA inhaler (Breztri Aerosphere) esomeprazole magnesium 20 mg 40 mg PO DAILY 06/15/25 06/29/25 History capsule,delayed release ethambutol 400 mg tablet 1,200 mg PO DAILY 06/15/25 06/29/25 History furosemide 20 mg tablet 40 mg PO DAILY 06/15/25 06/29/25 History losartan 25 mg tablet 25 mg PO DAILY 06/15/25 06/29/25 History morphine 30 mg tablet,extended 30 mg PO Q12H PRN pain 06/15/25 06/29/25 History release rifabutin 150 mg capsule 300 mg PO DAILY 06/15/25 06/29/25 History tamsulosin 0.4 mg capsule 0.4 mg PO BID 06/15/25 06/29/25 History Allergies Allergy/AdvReac Type Severity Reaction Status Date / Time clonazepam AdvReac Severe Drowsy Verified 05/30/25 19:29 roflumilast (From [facility]) AdvReac Severe Diarrhea Verified 05/30/25 19:29 Vital Signs Vital Signs - 24 hr 06/28/25 21:52 06/28/25 22:00 06/28/25 22:03 Temperature 98 F Pulse Rate 82 91 Respiratory Rate 18 Blood Pressure 111/47 L Pulse Oximetry 97 100 Oxygen Delivery Non-Rebreather Mask Non-Rebreather Mask Oxygen Flow Rate 7 7 06/28/25 22:03 06/28/25 22:05 06/28/25 22:07 Temperature Pulse Rate Respiratory Rate Blood Pressure Pulse Oximetry 100 100 100 Oxygen Delivery Non-Rebreather Mask Nasal Cannula Nasal Cannula Oxygen Flow Rate 7 6 4 06/28/25 22:17 06/28/25 22:46 06/28/25 23:01 Temperature Pulse Rate 76 71 71 Respiratory Rate 16 15 17 Blood Pressure 113/77 99/55 L 109/46 L Pulse Oximetry 99 99 98 Oxygen Delivery Oxygen Flow Rate 06/28/25 23:31 06/28/25 23:46 06/29/25 00:01 Temperature Pulse Rate 71 70 69 Respiratory Rate 15 17 17 Blood Pressure 111/44 L 111/43 L 104/47 L Pulse Oximetry 99 98 98 Oxygen Delivery Oxygen Flow Rate 06/29/25 00:12 06/29/25 00:16 06/29/25 00:20 Temperature Pulse Rate 74 Respiratory Rate 14 Blood Pressure 116/72 Pulse Oximetry 100 97 99 Oxygen Delivery Nasal Cannula Nasal Cannula Oxygen Flow Rate 3 2 06/29/25 00:31 06/29/25 00:47 06/29/25 01:01 Temperature Pulse Rate 73 73 70 Respiratory Rate 15 24 H 13 Blood Pressure 113/42 L 118/51 L 101/65 Pulse Oximetry 96 97 97 Oxygen Delivery Oxygen Flow Rate 06/29/25 01:15 06/29/25 01:31 06/29/25 01:46 Temperature Pulse Rate 72 72 Respiratory Rate 16 14 25 H Blood Pressure 107/54 L 117/49 L Pulse Oximetry 91 90 Oxygen Delivery Oxygen Flow Rate 06/29/25 02:15 06/29/25 03:50 06/29/25 03:55 Temperature Pulse Rate 78 75 76 Respiratory Rate 15 15 18 Blood Pressure 147/60 H 128/61 Pulse Oximetry 96 Oxygen Delivery Oxygen Flow Rate 06/29/25 04:49 06/29/25 05:30 06/29/25 06:00 Temperature 98.1 F Pulse Rate 80 80 78 Respiratory Rate 16 16 Blood Pressure 131/52 L Pulse Oximetry 90 90 Oxygen Delivery Nasal Cannula Oxygen Flow Rate 2 06/29/25 07:44 06/29/25 08:00 06/29/25 08:00 Temperature 97.5 F L Pulse Rate 88 83 Respiratory Rate 22 H Blood Pressure 140/58 L Pulse Oximetry 90 92 Oxygen Delivery Nasal Cannula Oxygen Flow Rate 2 06/29/25 09:21 06/29/25 09:21 06/29/25 09:31 Temperature Pulse Rate 82 82 75 Respiratory Rate 20 20 20 Blood Pressure Pulse Oximetry 92 Oxygen Delivery Nasal Cannula Oxygen Flow Rate 1 06/29/25 10:00 06/29/25 11:43 06/29/25 12:00 Temperature 98.2 F Pulse Rate 84 81 82 Respiratory Rate 21 H Blood Pressure 126/68 Pulse Oximetry 95 Oxygen Delivery Oxygen Flow Rate 06/29/25 14:24 06/29/25 14:24 06/29/25 14:31 Temperature Pulse Rate 78 78 82 Respiratory Rate 20 20 20 Blood Pressure Pulse Oximetry 93 Oxygen Delivery Nasal Cannula Oxygen Flow Rate 1 06/29/25 16:00 06/29/25 16:00 06/29/25 16:25 Temperature 98.1 F 98.6 F Pulse Rate 88 83 83 Respiratory Rate 20 24 H Blood Pressure 138/54 L 134/60 Pulse Oximetry 93 97 Oxygen Delivery Oxygen Flow Rate Exam Narrative: General - Awake and alert. No acute distress Eyes - PERRLA, EOM intact ENT - No thrush, No erythema Neck - No noticeable or palpable swelling Lymph Nodes - No lymphadenopathy Cardiovascular - RRR no m/r/g, no JVD Lungs: Clear to auscultation, No wheezing, use of accessory muscles, rare crackles Skin - Skin warm and dry, no wounds or rashes Abdomen - Normal bowel sounds, abdomen soft and nontender Extremities - No edema, cyanosis or clubbing Musculoskeletal - 5/5 strength, normal range of motion, no swollen or erythematous joints. Neurological ? Alert and oriented x 3, CN 2-12 grossly intact. Psych: Normal mood and affect H&P: Results Labs Labs: Short CBC 06/28/25 Range/Units 22:17 WBC 14.8 H (4.5-10.0) K/mm3 Hgb 8.2 L (14.0-18.0) g/dL Hct 27.2 L (42.0-52.0) % Plt Count 251 (150-375) k/mm3 BMP 06/28/25 22:17 Sodium 134 L Potassium 4.9 Chloride 99 Carbon Dioxide 27 BUN 45 H Creatinine 1.46 H Glucose 174 H Calcium 9.1 Cardiac Enzymes 06/28/25 Range/Units 22:17 Troponin I < 0.012 (0.000-0.034) ng/mL Liver Function 06/28/25 Range/Units 22:17 Total Bilirubin 0.5 (0.2-1.3) mg/dL AST 54 (17-59) U/L ALT 29 (6-50) U/L Alkaline Phosphatase 110 (38-126) U/L Albumin 3.4 L (3.5-5.1) g/dL Urine 06/29/25 Range/Units 03:50 Urine Color Yellow (Yellow) Urine Appearance Clear (Clear) Urine pH 6.0 (5.0-9.0) Ur Specific Ruth 1.014 (1.001-1.035) Urine Protein Negative (Negative) mg/dL Urine Glucose (UA) Negative (Negative) mg/dL Assessment and Plan Assessment and plan (1) COPD exacerbation: Code(s): J44.1 - Chronic obstructive pulmonary disease with (acute) exacerbation Status: Acute Assessment and Plan: Home meds: Bevespi 9-4.8mcg HFA inhaler, Breztri 160-9-4.8 HFA q12, Albuterol HFA prn, neb solution --s/p solumedrol 125 x1. Continue Prednisone 40mg x5 doses --Substituted Trelegy for home inhalers --Nebulizer machine for home (2) NSVT (nonsustained ventricular tachycardia): Code(s): I47.29 - Other ventricular tachycardia Status: Acute Assessment and Plan: 14 beat run NSVT AM 8/7. Asymptomatic --Continue metoprolol 50mg daily --Monitoring on tele --Follow electrolytes (3) SNEHA (mycobacterium avium-intracellulare): Code(s): A31.0 - Pulmonary mycobacterial infection Status: Acute Assessment and Plan: Home meds: Ethambutol 1200mg daily, Rifabutin 150mg daily, Azithomycin 500 reduced to 250mg daily --Prior follow up with [facility] 06/27 had been scheduled. Coordinate next appointment --Azithromycin 250mg daily --Does not have rifabutin with him --Calling ID clinic about stop date. Waiting for a call back (4) Acute and chronic respiratory failure: Code(s): J96.20 - Acute and chronic respiratory failure, unspecified whether with hypoxia or hypercapnia Status: Resolved Assessment and Plan: On 1L O2 today. Reports desats on 5L O2 with ambulation at home --Wean O2 for sats >92% --Had a vest previously --May have a nebulizer per notes but patient's son was not familiar with it --Pulmonary consult for recommendations --May benefit from pulmonary rehab (5) HTN (hypertension): Qualifiers: Hypertension type: primary hypertension Qualified Code(s): I10 - Essential (primary) hypertension Code(s): I10 - Essential (primary) hypertension Status: Chronic Assessment and Plan: Home meds: Losartan 25, Furosemide 40mg daily, Metoprolol 50 q24 --Hold losartan for mild SANDI --Lasix daily as tolerated, follow creatinine --Continue metoprolol (6) Goals of care, counseling/discussion: Code(s): Z71.89 - Other specified counseling Status: Acute Assessment and Plan: DNR/DNI No intubation or CPR Also discussed with patient's son (7) SANDI (acute kidney injury): Code(s): N17.9 - Acute kidney failure, unspecified Status: Acute Assessment and Plan: Creatinine 1.4, up from baseline 0.92 --Hold losartan --Hold lasix dose in AM pending repeat labs (8) Chronic pain: Code(s): G89.29 - Other chronic pain Status: Acute Assessment and Plan: Home meds: Morphine ER 30mg q12 --Continue home morphine dose --Tylenol prn Quality VTE Prophylaxis VTE prophylaxis: pharmacologic ordered Hospitalist MIPS Advance Care Plan I have confirmed that the patient's Advanced Care Plan is present, code status is documented, or surrogate decision maker is listed in patient medical record.: Yes Medication Reconciliation I have utilized all available resources to obtain, update and review the patients current medications (includes all prescriptions, OTC, herbals, cannabis, and nutritional supplements).: Yes
[2025-06-29] MEDS: METOPROLOL SUCCINATE EXT REL 50 MG TABCR PO (20:19)
[2025-06-30] VITALS (21 sets, daily range): BP systolic 114–141; BP diastolic 40–50; PULSE 57–81; RESP 12–20; TEMP 36.2–37.1; O2SAT 93–96
[2025-06-30] MEDS: IPRATROPIUM 0.5 MG/ALBUTEROL SULFATE 2.5 MG AMPUL.NEB 3 ML INHALATION ×3 (01:01→13:36)
[2025-06-30] MEDS: LINACLOTIDE 145 MCG CAPSULE 290 MCG PO (06:23)
[2025-06-30 08:20] LABS: Hematocrit 26.8 % (42.0-52.0); Hemoglobin 7.9 g/dL (14.0-18.0); Immature Granulocyte Percent A 0.9 % (0-0.5); Lymphocytes Absolute Auto 0.82 K/mm3 (0.9-3.2); Mean Corpuscular HGB Conc 29.5 g/dl (32-36); Mean Corpuscular Hemoglobin 27.9 pg (26-34); Mean Corpuscular Volume 94.7 fl (80-100); Nucleated Red Blood Cells Absolute Auto 0.000 K/mm3 (0.0-0.012); Nucleated Red Blood Cells Perc 0.0 % (0.0-0.2); Platelet Count Result 253 k/mm3 (150-375); Red Blood Count 2.83 M/mm3 (4.6-6.20); White Blood Count 7.4 K/mm3 (4.5-10.0)
[2025-06-30] MEDS: FLUTICASONE/UMECLIDIN/VILANTER 200-62.5-25 MCG ELLIPTA 1 PUFF INHALATION (08:36)
[2025-06-30 08:42] LABS: Anion Gap 7 mmol/L (4-12); Blood Urea Nitrogen 25 mg/dL (9-20); Calcium 9.5 mg/dL (8.4-10.2); Carbon Dioxide 29 mmol/L (22-30); Chloride 104 mmol/L (98-107); Estimated CRCL calculation 50 ml/min; Estimated Glomerular Filt Rate > 60; Glucose 119 mg/dL (65-110); Magnesium 2.1 mg/dL (1.6-2.3); Potassium 4.4 mmol/L (3.4-5.0); Sodium 140 mmol/L (137-145)
[2025-06-30 08:43] LABS: Hypochromasia 1+; Ovalocytes 1+; Schistocytes None Seen
[2025-06-30 09:02] LABS: CRP 9.7 mg/dL (<1.0)
[2025-06-30] MEDS: PANTOPRAZOLE 40 MG TABLET PO (10:12)
[2025-06-30] MEDS: TAMSULOSIN HCL 0.4 MG CAPSULE PO ×2 (10:12→17:10)
[2025-06-30] MEDS: ACETAMINOPHEN 500 MG TABLET 1000 MG PO (10:12)
[2025-06-30] MEDS: TOBRAMYCIN/DEXAMETHASONE OP 2.5 ML BTL 1 DROP EACH EYE ×4 (10:13→21:34)
[2025-06-30] MEDS: buPROPion HCL SR (12 HR) 150 MG TAB PO ×2 (10:14→17:10)
[2025-06-30] MEDS: ETHAMBUTOL HCL 400 MG TABLET 1200 MG PO (10:15)
[2025-06-30] MEDS: ATORVASTATIN 40 MG TABLET 80 MG PO (10:15)
[2025-06-30] MEDS: AZITHROMYCIN 250 MG TABLET PO (10:15)
[2025-06-30] MEDS: ASPIRIN 81 MG ENTERIC TABLET PO (10:15)
--- NOTE | 2025-06-30 10:15 | P.PNIM_ITS ---
Progress Note: A&P Assessment and Plan (1) Acute and chronic respiratory failure: Code(s): J96.20 - Acute and chronic respiratory failure, unspecified whether with hypoxia or hypercapnia Status: Resolved Assessment and Plan: On 1L O2 today. Reports desats on 5L O2 with ambulation at home. Desat to 80's with 4L today with ambulation. Needing 2L at rest --Wean O2 for sats >92% --Had a vest previously, resume per pulmonary recommendations --Appreciate Pulmonary recommendations --May benefit from pulmonary rehab (2) COPD exacerbation: Code(s): J44.1 - Chronic obstructive pulmonary disease with (acute) exacerbation Status: Acute Assessment and Plan: Home meds: Bevespi 9-4.8mcg HFA inhaler, Breztri 160-9-4.8 HFA q12, Albuterol HFA prn, neb solution --s/p solumedrol 125 x1. Continue Prednisone 40mg x5 doses --Substituted Trelegy for home inhalers --Reports he has a nebulizer machine at home, does his own breathing treatments when needed --Pulmonary consulted, appreciate recommendations (3) NSVT (nonsustained ventricular tachycardia): Code(s): I47.29 - Other ventricular tachycardia Status: Acute Assessment and Plan: 14 beat run NSVT AM 06/29. Asymptomatic. 3 beats overnight --Continue metoprolol 50mg daily --Monitoring on tele --Follow electrolytes (4) SNEHA (mycobacterium avium-intracellulare): Code(s): A31.0 - Pulmonary mycobacterial infection Status: Acute Assessment and Plan: Home meds: Ethambutol 1200mg daily, Rifabutin 150mg daily, Azithomycin 500 reduced to 250mg daily for hearing changes --Prior follow up with [facility] ID 06/27 had been scheduled. Coordinate next appointment --Azithromycin 250mg daily --Does not have rifabutin with him. Sent a prescription to [place] if able to fill --Continue ethambutol --Called ID clinic and no stop date for antibiotics. (5) HTN (hypertension): Qualifiers: Hypertension type: primary hypertension Qualified Code(s): I10 - Essential (primary) hypertension Code(s): I10 - Essential (primary) hypertension Status: Chronic Assessment and Plan: Home meds: Losartan 25, Furosemide 40mg daily, Metoprolol 50 q24 --Hold losartan for mild SANDI --Lasix daily as tolerated, follow creatinine --Continue metoprolol (6) Goals of care, counseling/discussion: Code(s): Z71.89 - Other specified counseling Status: Acute Assessment and Plan: DNR/DNI No intubation or CPR Also discussed with patient's son (7) SANDI (acute kidney injury): Code(s): N17.9 - Acute kidney failure, unspecified Status: Acute Assessment and Plan: Creatinine 1.4, up from baseline 0.92. Back to 1.1 --Hold losartan --Likely resume lasix in AM (8) Chronic pain: Code(s): G89.29 - Other chronic pain Status: Acute Assessment and Plan: Home meds: Morphine ER 30mg q12 --Continue home morphine dose --Tylenol prn Time Spent With Patient Time: 57 minutes Subjective Date/time seen: 06/30/25 10:15 Interval history: Clarified with ID at [facility] and no end date for SNEHA treatment yet. Unable to obtain rifabutin here. Pulmonary consulted. Starting vest treatments. Exam Narrative: General - Awake and alert. No acute distress Eyes - PERRLA, EOM intact ENT - No thrush, No erythema Neck - No noticeable or palpable swelling Lymph Nodes - No lymphadenopathy Cardiovascular - RRR no m/r/g, no JVD Lungs: Crackles all lung short, No wheezing, use of accessory muscles Skin - Skin warm and dry, no wounds or rashes Abdomen - Normal bowel sounds, abdomen soft and nontender Extremities - No edema, cyanosis or clubbing Musculoskeletal - 5/5 strength, normal range of motion, no swollen or eryth ematous joints. Neurological ? Alert and oriented x 3, CN 2-12 grossly intact. Psych: Normal mood and affect Objective Data Vital Signs Vital Signs: Vital Signs - 24 hr 06/29/25 11:43 06/29/25 12:00 06/29/25 14:24 Temperature 98.2 F Pulse Rate 81 82 78 Respiratory Rate 21 H 20 Blood Pressure 126/68 Pulse Oximetry 95 93 Oxygen Delivery Nasal Cannula Oxygen Flow Rate 1 06/29/25 14:24 06/29/25 14:31 06/29/25 16:00 Temperature 98.1 F Pulse Rate 78 82 88 Respiratory Rate 20 20 20 Blood Pressure 138/54 L Pulse Oximetry 93 Oxygen Delivery Oxygen Flow Rate 06/29/25 16:00 06/29/25 16:25 06/29/25 20:05 Temperature 98.6 F Pulse Rate 83 83 60 Respiratory Rate 24 H Blood Pressure 134/60 Pulse Oximetry 97 Oxygen Delivery Oxygen Flow Rate 06/29/25 20:07 06/29/25 20:07 06/29/25 20:12 Temperature Pulse Rate 72 73 Respiratory Rate 18 18 Blood Pressure Pulse Oximetry 96 Oxygen Delivery Nasal Cannula Oxygen Flow Rate 3 06/29/25 20:19 06/29/25 20:30 06/29/25 20:35 Temperature 98.7 F Pulse Rate 74 79 Respiratory Rate 18 Blood Pressure 115/42 L Pulse Oximetry 94 96 Oxygen Delivery Nasal Cannula Oxygen Flow Rate 3 06/30/25 00:05 06/30/25 01:03 06/30/25 01:08 Temperature Pulse Rate 75 70 70 Respiratory Rate 18 18 Blood Pressure Pulse Oximetry Oxygen Delivery Oxygen Flow Rate 06/30/25 04:10 06/30/25 05:22 06/30/25 08:37 Temperature 97.4 F L Pulse Rate 57 L 61 68 Respiratory Rate 20 20 Blood Pressure 141/48 H Pulse Oximetry 93 Oxygen Delivery Oxygen Flow Rate 06/30/25 08:42 06/30/25 08:43 06/30/25 09:30 Temperature Pulse Rate 70 Respiratory Rate 16 Blood Pressure Pulse Oximetry 96 Oxygen Delivery Room Air Nasal Cannula Oxygen Flow Rate 3 Intake/Output Intake/Output: Intake & Output 06/27/25 06/28/25 06/29/25 06/30/25 23:59 23:59 23:59 23:59 Intake Total 500 2070 Output Total 1050 600 Balance 500 1020 -600 Meds/Results Medications: Active Medications Generic Name Dose Route Start Last Admin Trade Name Freq PRN Reason Stop Dose Admin Acetaminophen 650 mg 06/29/25 03:35 Acetaminophen 325 Mg Tablet PO Q4H PRN Mild Pain (1-3) or Fever Acetaminophen 1,000 mg 06/29/25 12:36 Acetaminophen 500 Mg Tablet PO Q6H PRN Pain Albuterol 2.5 mg 06/29/25 12:36 Albuterol Sulfate Neb 2.5 Mg/3 Ml Inh INHALATION Q4H PRN shortness of breath or wheezing Albuterol 2 puff 06/29/25 12:36 Albuterol Sulfate (*Sp) Aerosol 1 Puff INHALATION Q4H PRN Shortness Of Breath Or Wheezing Albuterol/Ipratropium 3 ml 06/29/25 08:00 06/30/25 08:35 Ipratropium 0.5 Mg/Albuterol Sulfate 2.5 Mg Ampul.Neb 3 Ml INHALATION 3 ml Q6HRT GIOVANNY Administration Aspirin 81 mg 06/29/25 13:00 06/29/25 14:44 Aspirin 81 Mg Enteric Tablet PO 81 mg DAILY GIOVANNY Administration Atorvastatin Calcium 80 mg 06/29/25 13:00 06/29/25 14:44 Atorvastatin 40 Mg Tablet PO 80 mg DAILY [facility]OV[facility]NY Administration Azithromycin 250 mg 06/30/25 09:00 Azithromycin 250 Mg Tablet PO 07/03/25 09:01 DAILY GIOVANNY Baclofen 10 mg 06/29/25 12:35 Baclofen 10 Mg Tablet PO Q12H PRN muscle spasm Benzonatate 200 mg 06/29/25 13:00 Benzonatate 100 Mg Capsule PO TID PRN Cough Bupropion HCl 150 mg 06/29/25 17:00 06/29/25 17:38 Bupropion Hcl Sr (12 Hr) 150 Mg Tab PO 150 mg BID [facility] Administration Enoxaparin Sodium 40 mg 06/30/25 09:00 Enoxaparin 40 Mg/0.4 Ml Syringe SUB-Q DAILY [facility] Ethambutol HCl 1,200 mg 06/29/25 10:15 06/29/25 10:28 Ethambutol Hcl 400 Mg Tablet PO 1,200 mg DAILY [facility] Administration Fenofibrate 145 mg 06/29/25 13:00 06/29/25 14:44 Fenofibrate Nanocrystallized 145 Mg Tablet PO 145 mg QAM [facility] Administration Fluticasone/Umeclidinium/Vilanterol 1 puff 06/30/25 08:00 06/30/25 08:36 Fluticasone/Umeclidin/Vilanter 200-62.5-25 Mcg Ellipta INHALATION 1 puff DAILYRT [facility]OV[facility] Administration Furosemide 40 mg 06/29/25 13:00 06/29/25 14:45 Furosemide 40 Mg Tablet PO 40 mg DAILY [facility] Administration Hydroxyzine HCl 25 mg 06/29/25 12:36 Hydroxyzine Hcl 25 Mg Tablet PO QID PRN anxiety Linaclotide 290 mcg 06/30/25 06:30 06/30/25 06:23 Linaclotide 145 Mcg Capsule PO 290 mcg DAILY@0630 [facility] Administration Lorazepam 0.5 mg 06/29/25 12:35 06/29/25 14:44 Lorazepam (*Crx) 0.5 Mg Tablet PO 0.5 mg BID PRN Administration anxiety Metoprolol Succinate 50 mg 06/29/25 21:00 06/29/25 20:19 Metoprolol Succinate Ext Rel 50 Mg Tabcr PO 50 mg HS [facility] Administration Morphine Sulfate 30 mg 06/29/25 12:40 06/29/25 14:44 Morphine Sulfate (*Crx) 30 Mg Tabcr PO 30 mg Q12H PRN Administration pain Nitroglycerin 0.4 mg 06/29/25 12:36 Nitroglycerin Sl 0.4 Mg Tablet SUBLINGUAL Q5M PRN chest pain Non-Formulary Medication 200 mg 06/29/25 17:00 06/29/25 17:38 Sulindac BY MOUTH 07/29/25 16:59 Not Given BID [facility] Ondansetron HCl 4 mg 06/29/25 03:35 Ondansetron Inj 4 Mg/2 Ml Vial IV PUSH Q4H PRN Nausea Pantoprazole Sodium 40 mg 06/29/25 13:00 06/29/25 14:45 Pantoprazole 40 Mg Tablet PO 40 mg QAM [facility] Administration Prednisone 40 mg 06/30/25 08:00 Prednisone 20 Mg Tablet PO 07/05/25 07:59 DAILY@0800 [facility] Sertraline HCl 50 mg 06/29/25 13:00 06/29/25 14:45 Sertraline Hcl 50 Mg Tablet PO 50 mg DAILY [facility] Administration Tamsulosin HCl 0.4 mg 06/29/25 10:15 06/29/25 17:38 Tamsulosin Hcl 0.4 Mg Capsule PO 0.4 mg BID [facility] Administration Tobramycin/Dexamethasone 1 drop 06/29/25 13:00 06/29/25 20:19 Tobramycin/Dexamethasone Op 2.5 Ml Btl EACH EYE 1 drop QID [facility] Administration Trazodone HCl 100 mg 06/29/25 21:00 06/29/25 20:19 Trazodone Hcl 50 Mg Tablet PO 100 mg HS [facility] Administration Radiology Results: ITS Impressions Chest X-Ray 06/28/25 22:56 IMPRESSION: Increased right-sided pleural effusion when compared with previous study. Remainder of examination is unchanged. Chest CTA 06/29/25 05:32 Impression: No evidence of pulmonary embolus, aortic dissection, or aortic aneurysm. Patchy bilateral consolidation, suggestive of pneumonia and possible superimposed bibasilar atelectasis. There is significant worsening in the left upper lobe as compared to prior exam. Otherwise, remaining areas of airspace disease are similar to prior exam in the remainder of the lungs. Pulmonary edema not completely excluded, though felt to be somewhat less likely given the appearance and distribution of findings. Possible chronic scarring or atelectasis in the right middle lobe. Minimal pleural effusions. Labs Labs: Laboratory Results - last 24 hr 06/30/25 08:09 WBC 7.4 RBC 2.83 L Hgb 7.9 L Hct 26.8 L MCV 94.7 MCH 27.9 MCHC 29.5 L RDW 16.9 H Plt Count 253 MPV 10.0 Immature Gran % (Auto) 0.9 H Neut % (Auto) 82.5 H Lymph % (Auto) 11.1 L Bradford % (Auto) 5.4 Eos % (Auto) 0.0 Baso % (Auto) 0.1 L Lymph # (Auto) 0.82 L Bradford # (Auto) 0.4 Eos # (Auto) 0.0 Baso # (Auto) 0.0 Abs Immat Gran (auto) 0.07 H Absolute Neuts (auto) 6.1 Absolute Nucleated RBC 0.000 Band Neutrophils % Not Reportable Nucleated RBC % 0.0 Platelet Estimate Adequate Hypochromasia 1+ Ovalocytes 1+ Schistocytes None seen ESR > 140 H Sodium 140 Potassium 4.4 Chloride 104 Carbon Dioxide 29 Anion Gap 7 BUN 25 H D Creatinine 1.10 Estim Creat Clear Calc 50 Estimated GFR > 60 Glucose 119 H Calcium 9.5 Phosphorus 4.0 Magnesium 2.1 C-Reactive Protein 9.7 H Quality VTE Prophylaxis VTE prophylaxis: pharmacologic ordered Hospitalist MIPS Advance Care Plan I have confirmed that the patient's Advanced Care Plan is present, code status is documented, or surrogate decision maker is listed in patient medical record.: Yes Medication Reconciliation I have utilized all available resources to obtain, update and review the patients current medications (includes all prescriptions, OTC, herbals, cannabis, and nutritional supplements).: Yes
[2025-06-30] MEDS: SERTRALINE HCL 50 MG TABLET PO (10:16)
[2025-06-30] MEDS: FENOFIBRATE NANOCRYSTALLIZED 145 MG TABLET PO (10:16)
[2025-06-30] MEDS: ENOXAPARIN 40 MG/0.4 ML SYRINGE SUB-Q (10:21)
--- NOTE | 2025-06-30 11:03 | PM.CNPUL ---
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 patient started on rifabutin 300 q.day, azithromycin 500 mg q.day, ethambutol 1200 mg q.day on 06/05/2025. Patient with a history of SNEHA in sputum, multiple pulmonary infections requiring antibiotics on 02/25/2024, 04/10/2024, 09/08/2024, 10/04/2024, 11/04/2024, 11/20/2024, 12/02/2024, 03/02/2025, 04/25/2025, 05/12/2025, and 05/22/2025. Other comorbidities include COPD and history of fluid overload. Admitted to the hospital on 06/15/2025 with decreased hearing and azithromycin decreased from 500 to 250 mg p.o. q.day. 06/30/2025: Patient presents with weakness, fatigue, hypoxic respiratory failure. he denies fever, chills, rigors, change in his cough, change in his phlegm which is minimal and no hemoptysis. CT scan compared to 06/01/2025 with new consolidative infiltrate anterior segment of the left upper lobe and worse consolidative infiltrate superior segment of the left lower lobe with no change in his right upper lobe, right middle lobe and right lower lobe infiltrates. Currently the patient is on 2 L nasal cannula with saturations 100%. Oxygenation is better than baseline which is usually 4 L at home. On detailed review of the patient's pills and pill bottles at home with son, Marco, over the phone ethambutol was not seen. Rifabutin was emptied. Patient called the clinic on 06/27/2025 stating they sent him home from the hospital on 06/23/2025 without azithromycin and I prescribed azithromycin 250 a day for 30 days and they filled the prescription for 5 pills and he took this on 06/27 and 06/28/25. Plan: Etiology of new infiltrates are likely continued MAC lung disease due to noncompliance with ethambutol, rifabutin and azithromycin. Patient and son are very confused about the medicines. Will continue ethambutol 1200 mg p.o. q.day, rifabutin 300 mg p.o. q.day and azithromycin 250 mg p.o. q.day. The hospital does not have rifabutin. I have spoken to Marco, son, who will drive to the pharmacy to brick picker this prescription of the rifabutin and bring it to the hospital so the patient can take this as a home medicine. Discussed with Marco over the phone, Mita Gaytan, will follow with you. (2) Chronic hypoxic respiratory failure, on home oxygen therapy: Code(s): J96.11 - Chronic respiratory failure with hypoxia; Z99.81 - Dependence on supplemental oxygen Status: Acute Assessment and Plan: 06/30/25: on discharge from the hospital 06/23/2024 patient was using 3-4 L at rest. At home patient has been using 4 L at rest with home pulse oximetry 91. Recently 4 L with activity saturations were decreasing to 85%. Plan: Goal saturation 90-94. Titer oxygen accordingly. (3) Chronic obstructive pulmonary disease: Code(s): J44.9 - Chronic obstructive pulmonary disease, unspecified Status: Acute Assessment and Plan: Gold grade 2 group E COPD Regarding his COPD, patient with 60 pack year tobacco use quit in 2019, alpha 1 anti trypsin genotype MM, [id number] apical predominant centrilobular and paraseptal emphysema on his CT scan from 10/11/2021. Of note he has had COVID pneumonia on 09/10/2021 and Pseudomonas aeruginosa on 10/10/2021 and 04/26/2025 and 06/16/2025. His PFTs from 12/16/2023 show mild obstruction with FEV1 68%, ratio 61%. No bronchodilator response, hyperinflation, severely decreased DLCO the remains mildly decreased when adjusted for alveolar volume. Compared to 01/01/2022 had been a significant decrease in the FVC, FEV1, total lung capacity, functional residual capacity and diffusing capacity. When admitted for pneumonia had an ABG on 02/25/2024 on 3 L nasal cannula 7.44/36/67. 10/04/2024: ABG on 2 L 7.43/41/75. 06/29/2025: 2 L ABG 7.37/49/113. 10/04/2024: White blood cell count 11.1 eosinophils 3.2%=355/uL. 04/09/2024 white blood cell count 11.1, eosinophils 0.4%=44/uL. 06/28/2025 white blood cell count 14.8, 1.8%=266 uL. Tested positive for COVID 11/13/2023 treated with Paxlovid, rebound symptoms treated with clarithromycin and doxycycline. Hospitalize 02/25/2024 for pneumonia with sputum showing Haemophilus treated with steroids. Hospitalized 04/10/24 to 04/12/24 for COPD exacerbation treated with prednisone and azithromycin. 09/08/2024 cold symptoms, treated with doxycycline and prednisone taper. 10/04/2024 ED visit for shortness of breath treated for fluid overload and COPD exacerbation with prednisone and Augmentin. 11/04 admitted to [facility] with congestive heart failure and pneumonia no evidence of COPD exacerbation. 11/20 admitted to [facility] for shortness of breath, fluid overload and possible pneumonia. 12/02/2024 through 12/06/2024 admitted to [facility] treated for pneumonia. sputum from 12/17/2024 grew out Alcaligenes xylosoxidans sensitive to meropenem and Septra, intermediate to Zosyn, resistant to ceftaz, levofloxacin and imipenem. 03/02/2025 patient with increased phlegm production and treated for bronchitis with Septra DS 2 tablets twice a day x 7 days. 06/30/25: Patient denies any recent change in his phlegm production, phlegm volume, change in phlegm color. he has new infiltrates on his x-ray but no wheezing. Plan: I do not believe he is having a COPD exacerbation and will discontinue all inhaled and systemic steroids as he has MAC lung disease. I will continue DuoNebs q.6 hours, Mucomyst nebulizers q.6 hours, guaifenesin 1200 mg p.o. b.i.d., vest therapy b.i.d., Cornet flutter valve q.4 hours while awake to aid in expectoration. History of Present Illness History of Present Illness Consult date: 06/30/25 Chief complaint: COPD exacerbation, Consolidations Narrative: 06/30/2025: This is a new pulmonary consult for COPD with pulmonary MAC 80-year-old with a history of coronary artery disease status post non ST elevation [place] 08/2019, ischemic cardiomyopathy, hypertension, hyperlipidemia, Gold grade 2 group B COPD on home oxygen 4 L at rest, with activity and with sleep and MAC lung disease (started on ribabutin, azithromycin and ethambutol on 06/05/2025) patient is followed in the Pulmonary Clinic. He has required antibiotics for lung infections on: 02/25/2024, 04/10/2024, 09/08/2024, 10/04/2024, 11/04/2024, 11/20/2024, 12/02/2024, 03/02/2025, 04/25/2025, 05/12/2025, 05/22/2025, 05/30/2025 and 06/15/2025. Patient recently admitted to the hospital from 06/15/2025 to 06/23/2025 for shortness of breath and hypoxia. he was treated with Levaquin, pulmonary hygiene maneuvers and his azithromycin was decreased from 500 mg p.o. q.day to 250 mg p.o. q.day due to hearing decrease. Patient left the hospital on 06/23/2024 in no respiratory distress but he was weak and fatigued easily. I spoke to the son Marco today. The patient lives in Marco's house and tired sees him every day. The patient's daughter had been the primary caregiver but now Sim is the caregiver. The patient was in his usual state of health until 06/27/2025 when he was very tired and exhausted. 06/28/2025 was supposed to be the patient's 1st day for home health therapy but he was somewhat confused, sleep and not waking up during the day. His room air saturations on 4 L were 91%. He denied fever, chills, rigors, change in his cough, change in his phlegm or hemoptysis. With activity on 4 L patient saturation decreased to 85%. Patient remained somnolent and EMS was called. 06/28/25 Patient presented to the emergency room with blood pressure 111/47, heart rate 82, respirations 18, temperature 98?, non-rebreather mask 7 L saturation 97%. White blood cell count 14.8, creatinine 1.46, BUN 45, BNP 669. ABG on 2 L was 7.37/49/113. CT angiogram of the chest showed emphysema. New consolidative infiltrate anterior segment left upper lobe, worsening consolidation and infiltrate in the suit soup superior segment of the left lower lobe in no change in his chronic infiltrates right upper lobe, right middle lobe, right lower lobe and no change in his small right pleural effusion. Patient was given bronchodilators, Solu-Medrol 125, ceftriaxone and azithromycin admitted to the hospital. 06/29/2025: Admitted to the floor and placed on prednisone 40 mg p.o. q.day, azithromycin 250 a day, ethambutol 1200 mg p.o. q.day, and DuoNebs q.6 hour. patient was on 2 L nasal cannula in the morning with saturations 92. At 8:00 p.m. patient was on 3 L nasal cannula saturations 96%. 06/30/2025: Today the patient tells me he is breathing at his baseline. His son Sim saw him this morning and feels that he is breathing the same as he was when he left the hospital on 06/23/2025. His cough is at his baseline. He has minimal phlegm. He denies fever, chills, rigors, hemoptysis. when I enter the room he was on 4 L with saturations 98%. I decreased him to room air and his saturations were 89%. I placed him back on 2 L and his saturations were 100%. The patient walked 8 ft with physical therapy and she told me his saturations on 4 L decreased to 85%. His white blood cell count is 7.4, his creatinine is 1.10, he is afebrile. on detailed review of the patient's pills and pill bottles at home with Sim over the phone ethambutol was not seen. Rifabutin was emptied. Patient called the clinic on 06/27/2025 stating they sent him home from the hospital on 06/23/2025 without azithromycin and I prescribed azithromycin 250 a day for 30 days and they filled the prescription for 5 pills and he took this on 06/27 and 06/28/25 DATA: 06/23/25:. His sputum shows moderate growth of Pseudomonas aeruginosa (recurrent) and Lucia. Pseudomonas sensitive to amikacin, aztreonam, ceftazidime, cefepime, gentamicin, meropenem, Zosyn and tobramycin. Intermediate to ciprofloxacin and imipenem. Resistant to Levaquin. 12/15/2024 sputum with AFB verified on 01/14/25 and grew SNEHA on 03/03/25. Sensitivities 03/20/25. On 03/20/25 patient referred to [facility] with appointment scheduled for 05/02/2025. Sputum on 12/16/2024 with AFB verified on 01/20/25 and grew SNEHA on 02/01/25.?Sensitivities 03/28/25. 2024 admissions: * 05/30/2025 [place] admission shortness of breath; transferred to [place] 06/04 to 06/07; discharged on Levaquin to continue until June 18; continue SNEHA meds * 05/12/2025, ER visit, shortness of breath, home. * 04/25/25 -04/28/25; admitted [place] respiratory distress, hypoxemia, transferred to [place]; ID saw him 05/02/25; SNEHA; started Rx w azithromycin 500 mg/D, Rifabutin 300 mg/D, ethambutol 1200 mg/ day initial sputum with SNEHA was 12/16/2024 with AFB verified on 01/20/25 and grew SNEHA on 02/01/25.?Sensitivities 03/28/25. QuantiFERON gold was negative on 01/24/25. ORGANISM: MYCOBACTERIUM AVIUM COMPLEX AMIKACIN: 16 S mcg/mL AMIKACIN (LIPOSOMAL, INHALED): 16 S mcg/mL CIPROFLOXACIN: >8 mcg/mL CLARITHROMYCIN: 2 S mcg/mL CLOFAZIMINE: 0.25 mcg/mL DOXYCYCLINE: >8 mcg/mL LINEZOLID: 16 I mcg/mL MINOCYCLINE: >8 mcg/mL MOXIFLOXACIN: 4 R mcg/mL RIFABUTIN: 1 mcg/mL RIFAMPIN: >4 mcg/mL STREPTOMYCIN: >32 * This is a corrected result. * A prior result that was reported as final has been changed. 1. Mycobacterium avium complex M.I.C. RX --------- --- Rifampin AFB >4 S Streptomycin AFB R Amikacin AFB 16 S Moxifloxacin AFB R DATA: 06/29/2025: Clinical Indication: Hypoxia CT Scan of the Chest with Contrast: Technique: Contiguous sections were acquired throughout the chest after intravenous administration of 100 cc of Omnipaque 350. Dose reduction technique was used on this scan by utilizing automated exposure control and iterative reconstruction technique. The dose-length product (DLP) was 283.61 mGy-cm. COMPARISON: 06/01/2025 Findings: Multiple shotty/minimally enlarged mediastinal lymph nodes are present along the right paratracheal stripe and AP window region. There is no filling defect in the pulmonary arterial tree to suggest pulmonary embolus. There is no evidence of aortic dissection or aneurysm. No pericardial effusion. There are small bilateral pleural effusions. Bibasilar consolidation with air bronchograms is present, which could reflect atelectasis/pulmonary edema versus pneumonia. There is probable chronic scarring or interstitial change in the right middle lobe. There are patchy areas of consolidation the left upper lobe and right upper lobe, which could reflect additional or new versus pneumonia. There is mild to moderate emphysema.. Images through the upper abdomen reveal no abnormalities. Impression: No evidence of pulmonary embolus, aortic dissection, or aortic aneurysm. Patchy bilateral consolidation, suggestive of pneumonia and possible superimposed bibasilar atelectasis. There is significant worsening in the left upper lobe as compared to prior exam. Otherwise, remaining areas of airspace disease are similar to prior exam in the remainder of the lungs. Pulmonary edema not completely excluded, though felt to be somewhat less likely given the appearance and distribution of findings. Possible chronic scarring or atelectasis in the right middle lobe. Minimal pleural effusions. 05/12/25: EXAMINATION: CTA chest PE protocol DATE: 05/12/2025 14:25 INDICATION: Dyspnea. Elevated d-dimer. TECHNIQUE: Computed tomography (CT) pulmonary angiogram of the chest was performed with 100 mL Omnipaque-350 intravenous contrast. Additional 3D reconstructions utilizing coronal maximum intensity projection (MIP) were performed. Automated exposure control and iterative reconstruction technique were employed. The dose-length product was 310.42 mGy-cm. COMPARISON: 04/26/2025 FINDINGS: No pulmonary embolism. Mild emphysema. Bronchial wall thickening in the bilateral lower lobes with some frothy appearing mucous in the right bronchus intermedius and right lower lobar bronchi consistent with bronchitis. Unchanged small right pleural effusion is been some interval improvement in groundglass opacities and patchy consolidation in the right lower lobe consistent with improving pneumonia. There is unchanged region of peripheral round atelectasis in the posterior left lower lobe with associated architectural distortion and volume loss. Additional unchanged linear discoid atelectasis at the right middle lobe. Heart size is normal. Atherosclerotic coronary artery calcific location. No pericardial effusion. Thoracic aorta is normal in caliber with no dissection. Enlargement of the central pulmonary arteries consistent with pulmonary arterial hypertension. No pathologically enlarged thoracic lymphadenopathy. Moderate-sized sliding-type hiatal hernia. Multiple low-attenuation cysts scattered throughout the liver measuring up to 1.5 cm. There is also a 1.8 cm cyst at the upper pole the right kidney. Mild thoracic spondylosis with bridging osteophytes at multiple levels consistent with diffuse idiopathic skeletal hyperostosis (DISH). IMPRESSION: 1. No pulmonary embolism. 2. Decreasing consolidation in the right lower lobe consistent with improving pneumonia. 3. Unchanged small right pleural effusion. 4. Mild emphysema and enlargement of the central pulmonary arteries consistent with pulmonary arterial hypertension. 5. Moderate-sized sliding-type hiatal hernia. 04/26/2025: EXAMINATION: CTA chest PE protocol DATE: 04/26/2025 13:46 CDT INDICATION: Shortness of breath TECHNIQUE: Computed tomographic angiography (CTA) of the chest was performed with 100 mL Omnipaque-350 intravenous contrast. The dose-length product was 256.22 mGy-cm. Maximum intensity projection 3D-reconstructions of the aorta and other arteries were constructed by the technologist on a separate workstation. Automated exposure control and iterative reconstruction technique were employed. COMPARISON: Chest x-ray dated 04/25/[address] dated 11/20/2024. FINDINGS: Small right pleural effusion. Trace left pleural effusion. There is mediastinal lymphadenopathy. There is right hilar lymphadenopathy. There is atherosclerosis of the aorta and coronary arteries. Small hiatal hernia. Heart size normal. Pulmonary arteries are enlarged, consistent with pulmonary hypertension. Study is technically adequate without evidence for pulmonary embolism. There is patchy bilateral airspace disease of the right upper, right middle and bilateral lower lobes, consistent with multifocal pneumonia. No endobronchial lesions. There is emphysema. No suspicious pulmonary nodules or masses. Mild thoracic spondylosis. No focal lytic or blastic lesions. IMPRESSION: 1. Multifocal airspace disease, consistent with pneumonia. 2: Bilateral pleural effusions, right greater than left. 3: Mediastinal lymphadenopathy, likely reactive. 4.: Pulmonary artery enlargement, consistent with pulmonary hypertension. 5: Emphysema. My read: I have compared this to CT scans from 11/20/2024 and 08/29/2024 and 02/25/2024. Current CT shows no PE, , Small right pleural effusion, worsening consolidation and infiltrates in the right lower lobe compared to 11/20/2024 and 02/25/2024. Compared to CT scan on 02/25/2024 currently there are some areas of improved consolidation in the right lower lobe and some different areas with worsening consolidations in the right lower lobe. There is unchanged consolidation in the posterior left lower lobe with no change compared to 11/20/2024, 08/29/2024 and that have improved from 02/25/2024. Currently there are patchy consolidations in the right middle lobe some which were present on 11/20/2024 and some that are new. There were no infiltrates on 08/29/2024 in the right middle lobe. 01/02/25: Modified barium swallow: Impression: Moderate dysphagia 11/20/24: EXAMINATION:. Recommendations: Regular but easy to chew diet with regular liquids but patient must use chin tuck posture with all eating and drinking to prevent pharyngeal residual and instances of laryngeal penetration and aspiration. He was referral to outpatient speech therapy. 12/14/24: CRP 3.6, ESR 134, CPK 43, Aspergillus Niger IgE 0.31, very low level. Aspergillus Niger antibody negative, Aspergillus flatus antibody negative. Aspergillus fumigatus antibody negative. Rheumatoid factor 12.9, anti CCP antibody less than 16. TERRA screen positive with an anti-DNA antibody 27 (positive greater than 10), Anca screen negative, hypersensitivity pneumonitis panel negative. 01/24/2025: QuantiFERON gold negative. IgE 691 normal less than 114, rheumatoid factor 12.9. IgG 693, IgM 90, IgA 212, all normal. Aldolase 5.0 11/20/2024: CTA chest PE protocol INDICATION: Hypoxia elevated d-dimer COMPARISON: 08/29/2024 and 10/11/2021. FINDINGS: No filling defects within the main or proximal pulmonary arteries. The thoracic aorta is unremarkable. No aneurysmal dilatation or dissection. The heart is of normal size, without pericardial effusion. Panlobular emphysematous disease is identified. Patchy groundglass opacification detected bilaterally. Small bilateral pleural effusions with adjacent compressive atelectasis Multiple subcentimeter areas of decreased attenuation within the liver, unchanged dating back to 10/11/2021. IMPRESSION: No pulmonary embolus. No aneurysmal dilatation or dissection within the thoracic aorta. Small bilateral pleural effusions with adjacent compressive atelectasis. 08/16/2024: Overnight oximetry on 3 L nasal cannula. The report in the computer status overnight oximetry on room air but this is mislabeled as the test was performed on 3 L. Recording duration 8 hours and 39 minutes. Basal saturation 92.1%. High saturation 96%. Low saturation 79%. Time with saturation less than or equal to 88% was 4 minutes and 58 seconds. I will continue oxygen 3 L at night. 06/24/2024: This is a 6 minute walk test. The test was performed and interpreted in accordance with the 2014 ERS/ATS task force guidelines. Of note, patient used to wheeled walker for stability and the testing was performed on his home portable oxygen concentrator at 3 L with pulse dose. Findings: The patient's resting 3 L oxygen saturation measured by pulse oximetry was 95% and heart rate was 80 bpm. Patient ambulated for 137 meters and oxygen saturation remained 91 to 92%. Heart rate at the end of the study was 94 bpm. The patient did not have rest or exertional hypoxemia on 3 L nasal cannula pulse dose with his portable oxygen concentrator. 02/25/24 - CTA chest (ER) - No PE identified. 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 There is patchy consolidation in the right middle and bilateral lower lobes with additional regions of tree-in-bud opacity scattered throughout both lungs consistent with multifocal pneumonia. There is associated bronchial wall thickening and mucous plugging in the bilateral lower lobes. Tiny left pleural effusion. No septal line thickening to suggest pulmonary edema. No pneumothorax. Mild cardiomegaly. Atherosclerotic coronary artery calcifications. No pericardial effusion. 02/25/2024: ABG on 4 L cannula 7.39/35/63 01/15/24 - Home O2 eval - Required 2L/min O2 with ambulation and none at rest. 12/16/23 - PFT The test was performed and results interpreted in accordance with the 2019 and 2005 ATS/ERS Task Force guidelines respectively using the Global Lung Function Initiative-2012 reference equations. Patient demonstrated good effort and cooperation. Reproducibility criteria were met. The quality of the pre bronchodilator spirometry maneuver was Grade A and post bronchodilator spirometry maneuver was Grade A. Findings: Spirometry: There is decreased maximal expiratory airflow at all lung volumes with concave expiratory flow tracing. The contour the inspiratory flow tracing is normal. The pre bronchodilator FVC is 3.33 L, 82% predicted. The pre bronchodilator FEV1 is 2.02 L, 68% predicted. The pre bronchodilator FEV1: FVC ratio 61%. The post bronchodilator FVC is 3.41 L, representing a 2% increase. The post bronchodilator FEV1 is 2.09 L, representing a 3% increase. The post bronchodilator FEV1: FVC ratio 61%. Plethysmography: The total lung capacity is 6.43 L, 89% predicted. The functional residual capacity is 4.14 L, 106% predicted. The residual volume is 3.10 L, 115% predicted. The residual volume: Total lung capacity ratio is 48%. Diffusing capacity: The diffusing capacity unadjusted for hemoglobin and carboxyhemoglobin is 9.0, 37% predicted. The diffusing capacity adjusted for alveolar volume is 2.29, 64% predicted. Comparison to previous pulmonary function testing on 01/01/2022 the post bronchodilator FVC has decreased from 4.38 L to 3.41 L. The post bronchodilator FEV1 has decreased from 3.11 L to 2.09 L. the total lung capacity is decreased from 7.39 L to 6.43 L. The functional residual capacity has decreased from 4.95 L to 4.14 L. The residual volume is unchanged from 2.93 L to 3.10 L. The diffusing capacity unadjusted for hemoglobin and carboxyhemoglobin is decreased from 14.9 to 9.0. The diffusing capacity adjusted for alveolar volume decreased from 2.63 to 2.29 Impression: There is a mild obstructive abnormality. There is no significant improvement after inhaling a single dose of albuterol. The increase in residual volume to total lung volume ratio is consistent with hyperinflation from an obstructive abnormality. The diffusing capacity unadjusted for hemoglobin and carboxyhemoglobin is severely decreased and remains mildly decreased when adjusted for alveolar volume. Compared to prior pulmonary function testing on 01/01/2022 there has been a significant decrease in the FVC, FEV1, total lung capacity, functional residual capacity and diffusing capacity with no significant change in the residual volume. 09/16/23 - Home O2 eval - Required 2L/min O2 with ambulation and none at rest. 01/01/22 - Home O2 eval - Patient did not require supplemental oxygen at rest or with exertion. 01/01/22 - PFTs - Mild obstructive abnormality with normal FEV1 without significant improvement after inhaling a single dose of albuterol. Lung volumes normal. The diffusing capacity unadjusted for hemoglobin is moderately decreased and normalizes when adjusted for alveolar volume. 12/18/21 - Overnight oximetry on room air - Time with saturation less than or equal to 88% was 4.0 minutes. Patient does not qualify for supplemental oxygen at night. 10/10/2021 - ABG on 4L NC - 7.44/43/70. 10/20/21 - Chest XR - Persistent patchy bilateral airspace disease with possible improvement in the left lung, compatible with pneumonia. 10/11/2021 - CTA chest - Extensive bilateral pulmonary infiltrates and likely reactive hilar or mediastinal adenopathy. Small right pleural effusion. No evidence of pulmonary embolism. 10/11/2021 - Echo - LV systolic function mildly reduced, EF 45-50%. Grade I diastolic dysfunction. The inferior wall, inferoseptal wall, basal inferolateral wall, and mid inferolateral wall are hypokinetic. Mild LA enlargement. No pulmonary hypertension. [facility] Past Medical History Medical History (Updated 06/30/25 @ 08:37 by Mita Gaytan APRN) NSVT (nonsustained ventricular tachycardia) Dysfunction of left eustachian tube Leukocytosis Heart failure with mildly reduced ejection fraction Chronic pulmonary aspergillosis Major depressive disorder, recurrent, mild Left foot drop Chronic kidney disease, stage 3 Spinal stenosis, lumbar region without neurogenic claudication Ischemic cardiomyopathy Echocardiogram 09/2021: Mildly reduced left ventricular systolic function EF of 45-50%, grade 1 diastolic dysfunction, inferior wall inferior septal wall basal inferior wall and mid inferior lateral wall hypokinesis with mild left atrial and large SVT (supraventricular tachycardia) 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 History of tobacco use Polio (1951) Other chronic pain Aortic stenosis Mild - Echo 05/15/2022 NSTEMI (non-ST elevated myocardial infarction) (08/2019) Atherosclerotic heart disease of [place] coronary artery without angina pectoris Abdominal aortic aneurysm, without rupture Seen on CT scan on 02/09/2018 Restless legs syndrome Surgical History Surgical History History of tonsillectomy and adenoidectomy History of repair of rotator cuff bilateral History of colonoscopy with polypectomy History of bowel resection due to obstruction Presence of coronary angioplasty implant and graft History of coronary artery stent placement X2 History of mandibular surgery (1986) reconstructive surgery right mandible related to cancer Family History Family History Mother Diabetes mellitus Acute myocardial infarction Father Colon cancer COPD (chronic obstructive pulmonary disease) Sibling Colon cancer Acute myocardial infarction Lung cancer COPD (chronic obstructive pulmonary disease) Sibling COPD (chronic obstructive pulmonary disease) Sibling Congestive heart failure Sibling Dementia Social History Social History Social History: Surrogate medical decision maker: Yessi Morgan, daughter. Code status: Full code. But he states he would not want to be on a ventilator long-term have a tracheostomy or feeding tube. Smoking packs per day: 1.5 Smoking cigarettes per day: 30.0 Years smoked: 60 Smoking pack-years: 90.00 Smoking status: Former smoker Tobacco type: cigarettes Second hand tobacco smoke exposure: No Alcohol intake: never Substance use: never Substance use type: does not use Other substance usage details: quit alcohol in 2010 Last use: Last alcohol use 2010 Do You Feel Safe in your Home?: Yes Lack of Transportation: No Lack of Food: Never True Current Housing: I Have Housing Concerned About Future Housing: No Difficulty Paying Gas/Electric Bills: No Difficulty Paying for Meds: No Currently Unemployed: No Education: High School Diploma/GED Difficulty w/ Childcare or Family Care: No Living arrangements: with family Additional living arrangements comments: . Lives in [place] with son and [id number]. 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: retired Additional occupation/education comments: [employer] Spiritual care concerns: No Agree to blood products: Yes Meds Home Medications and Allergies Home Medications ?Medication ?Instructions ?Recorded ?Confirmed ?Type acetaminophen 500 mg tablet 1,000 mg PO Q6H PRN Pain 03/18/23 06/29/25 History (Tylenol Extra Strength) aspirin 81 mg tablet,delayed 81 mg PO DAILY #90 tabs 06/15/23 06/29/25 Rx release fenofibrate 160 mg tablet 160 mg PO DAILY #90 tabs 09/16/23 06/29/25 Rx nebulizer accessories #1 ea 04/12/24 06/29/25 Rx nebulizer and compressor #1 ea 04/12/24 06/29/25 Rx linaclotide 290 mcg capsule See Rx Instructions .Route 04/28/24 06/29/25 Rx (Linzess) .COMPLEX #90 caps albuterol sulfate 90 mcg/actuation 2 puff inhalation Q4H PRN 10/03/24 06/29/25 Rx aerosol inhaler Shortness Of Breath Or Wheezing #8.5 grams baclofen 10 mg tablet 10 mg PO Q12H PRN muscle spasm 12/02/24 06/29/25 History albuterol sulfate 2.5 mg/3 mL 2.5 mg (3 mL) inhalation Q4H PRN 12/08/24 06/29/25 Rx (0.083 %) solution for nebulization shortness of breath or wheezing #90 mL nitroglycerin 0.4 mg sublingual 0.4 mg sublingual Q5M PRN chest 12/08/24 06/29/25 Rx tablet pain #25 tabs bupropion HCl 150 mg tablet,12 hr 150 mg PO BID #180 tabs 12/28/24 06/29/25 Rx sustained-release metoprolol succinate 50 mg 50 mg PO HS #90 tabs 12/29/24 06/29/25 Rx tablet,extended release 24 hr lorazepam 0.5 mg tablet 0.5 mg PO BID PRN anxiety #60 tabs 03/21/25 06/29/25 Rx tobramycin 0.3 %-dexamethasone 0.1 1 drp EACH EYE QID #10 mL 04/05/25 06/29/25 Rx % eye drops,suspension sulindac 200 mg tablet 200 mg PO BID #180 tabs 04/07/25 06/29/25 Rx atorvastatin 80 mg tablet 80 mg PO DAILY #90 tabs 04/11/25 06/29/25 Rx sertraline 50 mg tablet 50 mg PO DAILY #90 tabs 04/20/25 06/29/25 Rx benzonatate 200 mg capsule See Rx Instructions .Route 04/26/25 06/29/25 Rx .COMPLEX #90 caps glycopyrrolate 9 mcg-formoterol 2 puff inhalation BID #10.7 grams 04/28/25 06/29/25 Rx 4.8 mcg HFA aerosol inhaler (Bevespi Aerosphere) hydroxyzine HCl 25 mg tablet 25 mg PO QID PRN anxiety #50 tabs 05/19/25 06/29/25 Rx trazodone 100 mg tablet 100 mg PO HS Insomnia #90 tabs 05/24/25 06/29/25 Rx budesonide 160 mcg-glycopyr 9 2 inh inhalation .q12hr 06/15/25 06/29/25 History mcg-formot 4.8 mcg/actuation HFA inhaler (Breztri Aerosphere) esomeprazole magnesium 20 mg 40 mg PO DAILY 06/15/25 06/29/25 History capsule,delayed release ethambutol 400 mg tablet 1,200 mg PO DAILY 06/15/25 06/29/25 History furosemide 20 mg tablet 40 mg PO DAILY 06/15/25 06/29/25 History losartan 25 mg tablet 25 mg PO DAILY 06/15/25 06/29/25 History morphine 30 mg tablet,extended 30 mg PO Q12H PRN pain 06/15/25 06/29/25 History release tamsulosin 0.4 mg capsule 0.4 mg PO BID 06/15/25 06/29/25 History rifabutin 150 mg capsule 300 mg (2 x 150 mg) PO DAILY #60 06/30/25 Rx caps Allergies Allergy/AdvReac Type Severity Reaction Status Date / Time clonazepam AdvReac Severe Drowsy Verified 05/30/25 19:29 roflumilast (From [facility]) AdvReac Severe Diarrhea Verified 05/30/25 19:29 Vital Signs Vital Signs - 24 hr 06/29/25 11:43 06/29/25 12:00 06/29/25 14:24 Temperature 36.8 C Pulse Rate 81 82 78 Respiratory Rate 21 H 20 Blood Pressure 126/68 Pulse Oximetry 95 93 Oxygen Delivery Nasal Cannula Oxygen Flow Rate 1 06/29/25 14:24 06/29/25 14:31 06/29/25 16:00 Temperature 36.7 C Pulse Rate 78 82 88 Respiratory Rate 20 20 20 Blood Pressure 138/54 L Pulse Oximetry 93 Oxygen Delivery Oxygen Flow Rate 06/29/25 16:00 06/29/25 16:25 06/29/25 20:05 Temperature 37.0 C Pulse Rate 83 83 60 Respiratory Rate 24 H Blood Pressure 134/60 Pulse Oximetry 97 Oxygen Delivery Oxygen Flow Rate 06/29/25 20:07 06/29/25 20:07 06/29/25 20:12 Temperature Pulse Rate 72 73 Respiratory Rate 18 18 Blood Pressure Pulse Oximetry 96 Oxygen Delivery Nasal Cannula Oxygen Flow Rate 3 06/29/25 20:19 06/29/25 20:30 06/29/25 20:35 Temperature 37.1 C Pulse Rate 74 79 Respiratory Rate 18 Blood Pressure 115/42 L Pulse Oximetry 94 96 Oxygen Delivery Nasal Cannula Oxygen Flow Rate 3 06/30/25 00:05 06/30/25 01:03 06/30/25 01:08 Temperature Pulse Rate 75 70 70 Respiratory Rate 18 18 Blood Pressure Pulse Oximetry Oxygen Delivery Oxygen Flow Rate 06/30/25 04:10 06/30/25 05:22 06/30/25 08:37 Temperature 36.3 C L Pulse Rate 57 L 61 68 Respiratory Rate 20 20 Blood Pressure 141/48 H Pulse Oximetry 93 Oxygen Delivery Oxygen Flow Rate 06/30/25 08:42 06/30/25 08:43 06/30/25 09:30 Temperature Pulse Rate 70 Respiratory Rate 16 Blood Pressure Pulse Oximetry 96 Oxygen Delivery Room Air Nasal Cannula Oxygen Flow Rate 3 Exam Const: General: cooperative, healthy appearing and comfortable Orientation/consciousness: oriented to person, oriented to place and oriented to time HENMT: Head: normal to inspection Ears: hearing grossly normal bilaterally Eyes: General: appearance normal, both eyes and all related structures Neck: Neck: normal visual inspection Chest: Chest palpation & inspection: normal inspection of the chest Resp: Effort & Inspection: normal respiratory effort and able to speak in complete sentences Auscultation: crackles, no rales, no rhonchi, no wheezes and lung sounds not diminished Other: Bilateral inspiratory crackles. No wheezes. Cardio: Jugular venous distension: no JVD GI: Inspection: normal to inspection GI Palp: No abdominal tenderness Skin: General skin exam: normal color Neuro: General: oriented to person, oriented to place and oriented to time Extrem: General: normal to inspection Psych: Appearance: grossly normal Results Laboratory Findings 06/30/25 08:09 06/30/25 08:09 ABG, PT/INR, D-dimer: ABG ABG pH 7.374 (7.350-7.450) 06/29/25 01:26 ABG pCO2 48.8 mmHg (35.0-45.0) H 06/29/25 01:26 ABG pO2 112.8 mmHg (80.0-100.0) H 06/29/25 01:26 ABG O2 Saturation 98.0 % (95.0-100.0) 06/29/25 01:26 PT/INR, D-dimer D-Dimer 1.27 ug/mL (<0.48) H 06/28/25 22:17 Abnormal lab findings: Abnormal Labs 06/28/25 06/29/25 06/30/25 22:17 01:26 08:09 WBC 14.8 H RBC 2.88 L 2.83 L Hgb 8.2 L 7.9 L Hct 27.2 L 26.8 L MCHC 30.1 L 29.5 L RDW 16.6 H 16.9 H Immature Gran % (Auto) 1.3 H 0.9 H Neut % (Auto) 87.7 H 82.5 H Lymph % (Auto) 4.0 L 11.1 L Baso % (Auto) 0.1 L 0.1 L Lymph # (Auto) 0.59 L 0.82 L [place] # (Auto) 0.8 H Abs Immat Gran (auto) 0.19 H 0.07 H Absolute Neuts (auto) 12.9 H ESR > 140 H D-Dimer 1.27 H ABG pCO2 48.8 H ABG pO2 112.8 H ABG HCO3 27.8 H Sodium 134 L BUN 45 H 25 H D Creatinine 1.46 H Estimated GFR 46 L Glucose 174 H 119 H C-Reactive Protein 9.7 H NT-Pro-B Natriuret Pep 669 H Albumin 3.4 L Diagnostic Findings Additional studies: ITS Impressions Chest X-Ray 06/28/25 22:56 IMPRESSION: Increased right-sided pleural effusion when compared with previous study. Remainder of examination is unchanged. Chest CTA 06/29/25 05:32 Impression: No evidence of pulmonary embolus, aortic dissection, or aortic aneurysm. Patchy bilateral consolidation, suggestive of pneumonia and possible superimposed bibasilar atelectasis. There is significant worsening in the left upper lobe as compared to prior exam. Otherwise, remaining areas of airspace disease are similar to prior exam in the remainder of the lungs. Pulmonary edema not completely excluded, though felt to be somewhat less likely given the appearance and distribution of findings. Possible chronic scarring or atelectasis in the right middle lobe. Minimal pleural effusions.
[2025-06-30 12:25] LABS: Procalcitonin 0.1 ng/mL
[2025-06-30] MEDS: guaiFENesin 12 HR 600 MG TABCR 1200 MG PO ×2 (13:16→21:34)
[2025-06-30] MEDS: ACETYLCYSTEINE 20% INHAL SOLN 800 MG/4 ML VIAL 200 MG INHALATION ×2 (13:35→19:53)
[2025-06-30] MEDS: [UNRECOGNIZED DRUG - OTHER] BY MOUTH (17:10)
[2025-06-30] MEDS: SULINDAC 200 MG BY MOUTH (17:10)
[2025-06-30] MEDS: ALBUTEROL SULFATE NEB 2.5 MG/3 ML INH INHALATION (19:53)
[2025-06-30] MEDS: METOPROLOL SUCCINATE EXT REL 50 MG TABCR PO (21:34)
[2025-07-01] VITALS (18 sets, daily range): BP systolic 114–164; BP diastolic 54–62; PULSE 65–82; RESP 16–20; TEMP 36.6–36.7; O2SAT 96–98
[2025-07-01] MEDS: IPRATROPIUM 0.5 MG/ALBUTEROL SULFATE 2.5 MG AMPUL.NEB 3 ML INHALATION ×5 (02:07→20:59)
[2025-07-01] MEDS: ACETYLCYSTEINE 20% INHAL SOLN 800 MG/4 ML VIAL 200 MG INHALATION ×4 (02:08→20:59)
[2025-07-01] MEDS: LINACLOTIDE 145 MCG CAPSULE 290 MCG PO (06:17)
[2025-07-01] MEDS: ACETAMINOPHEN 500 MG TABLET 1000 MG PO (06:28)
--- NOTE | 2025-07-01 06:41 | PC.NURSE ---
Notified Lukas Marina regarding pts elevated BP 164/60. No new orders.
--- NOTE | 2025-07-01 07:15 | P.PNIM_ITS ---
Progress Note: A&P Assessment and Plan (1) Acute and chronic respiratory failure: Code(s): J96.20 - Acute and chronic respiratory failure, unspecified whether with hypoxia or hypercapnia Status: Resolved Assessment and Plan: On 1L O2 today. Reports desats on 5L O2 with ambulation at home. Desat to 80's with 4L today with ambulation. Needing 2L at rest --Wean O2 for sats >92% --Had a vest previously, resume per pulmonary recommendations --Appreciate Pulmonary recommendations --May benefit from pulmonary rehab (2) NSVT (nonsustained ventricular tachycardia): Code(s): I47.29 - Other ventricular tachycardia Status: Acute Assessment and Plan: 14 beat run NSVT AM 06/29. Asymptomatic. 3 beats overnight --Continue metoprolol 50mg daily --Monitoring on tele --Follow electrolytes (3) SNEHA (mycobacterium avium-intracellulare): Code(s): A31.0 - Pulmonary mycobacterial infection Status: Acute Assessment and Plan: Home meds: Ethambutol 1200mg daily, Rifabutin 150mg daily, Azithomycin 500 reduced to 250mg daily for hearing changes --Prior follow up with [facility] 06/27 had been scheduled. Coordinate next appointment --Azithromycin 250mg daily --Does not have rifabutin with him. Sent a prescription to [place] if able to fill. Continuing 600mg rifampin until able to fill rifabutin --Continue ethambutol --Called ID clinic and no stop date for antibiotics. Has follow up with [facility] in July. (4) HTN (hypertension): Qualifiers: Hypertension type: primary hypertension Qualified Code(s): I10 - Essential (primary) hypertension Code(s): I10 - Essential (primary) hypertension Status: Chronic Assessment and Plan: Home meds: Losartan 25, Furosemide 40mg daily, Metoprolol 50 q24 --Hold losartan for mild SANDI --Lasix daily as tolerated, follow creatinine --Continue metoprolol (5) Goals of care, counseling/discussion: Code(s): Z71.89 - Other specified counseling Status: Acute Assessment and Plan: DNR/DNI No intubation or CPR Also discussed with patient's son (6) SANDI (acute kidney injury): Code(s): N17.9 - Acute kidney failure, unspecified Status: Acute Assessment and Plan: Creatinine 1.4, up from baseline 0.92. Back to 1.1 --Hold losartan --Likely resume lasix in AM (7) Chronic pain: Code(s): G89.29 - Other chronic pain Status: Acute Assessment and Plan: Home meds: Morphine ER 30mg q12 --Continue home morphine dose --Tylenol prn (8) Chronic obstructive pulmonary disease: Code(s): J44.9 - Chronic obstructive pulmonary disease, unspecified Status: Acute Assessment and Plan: Home meds: Bevespi 9-4.8mcg HFA inhaler, Breztri 160-9-4.8 HFA q12, Albuterol HFA prn, neb solution --s/p solumedrol 125 x1, Prednisone x1, then discontinued since no wheezing --Substituted Trelegy for home inhalers --Reports he has a nebulizer machine at home, does his own breathing treatments when needed --Pulmonary consulted, appreciate recommendations --Clarify inhalers for discharge Time Spent With Patient Time: 57 minutes Subjective Date/time seen: 07/01/25 10:15 Interval history: Didn't sleep well. Has a headache, pain to neck/tightness Creatinine improved. Rifabutin ordered at [facility] but won't be available for a few days. Pulmonary consulted and started rifampin while waiting for medications Planning overnight oximetry study. Weaning O2, decreased to 1L Exam Narrative: General - Awake and alert. No acute distress Eyes - PERRLA, EOM intact ENT - No thrush, No erythema Neck - No noticeable or palpable swelling Lymph Nodes - No lymphadenopathy Cardiovascular - RRR no m/r/g, no JVD Lungs: Crackles all lung short, No wheezing, use of accessory muscles Skin - Skin warm and dry, no wounds or rashes Abdomen - Normal bowel sounds, abdomen soft and nontender Extremities - No edema, cyanosis or clubbing Musculoskeletal - 5/5 strength, normal range of motion, no swollen or erythematous joints. Neurological ? Alert and oriented x 3, CN 2-12 grossly intact. Psych: Normal mood and affect Objective Data Vital Signs Vital Signs: Vital Signs - 24 hr 06/30/25 08:00 06/30/25 08:00 06/30/25 08:37 Temperature Pulse Rate 70 68 Respiratory Rate 20 Blood Pressure Pulse Oximetry 96 Oxygen Delivery Nasal Cannula Oxygen Flow Rate 3 06/30/25 08:42 06/30/25 08:43 06/30/25 09:30 Temperature Pulse Rate 70 Respiratory Rate 16 Blood Pressure Pulse Oximetry 96 Oxygen Delivery Nasal Cannula Nasal Cannula Oxygen Flow Rate 3 3 06/30/25 11:17 06/30/25 12:00 06/30/25 13:38 Temperature Pulse Rate 64 69 Respiratory Rate 12 Blood Pressure Pulse Oximetry Oxygen Delivery Nasal Cannula Oxygen Flow Rate 3 06/30/25 13:43 06/30/25 14:02 06/30/25 16:00 Temperature 97.1 F L Pulse Rate 70 64 58 L Respiratory Rate 16 19 Blood Pressure 114/40 L Pulse Oximetry 96 Oxygen Delivery Oxygen Flow Rate 06/30/25 19:53 06/30/25 19:55 06/30/25 20:05 Temperature Pulse Rate 71 Respiratory Rate 18 Blood Pressure Pulse Oximetry 96 96 Oxygen Delivery Nasal Cannula Nasal Cannula Oxygen Flow Rate 3 3 06/30/25 20:06 06/30/25 20:10 06/30/25 21:26 Temperature 98.7 F Pulse Rate 74 77 80 Respiratory Rate 16 20 Blood Pressure 139/50 L Pulse Oximetry 96 Oxygen Delivery Oxygen Flow Rate 06/30/25 21:34 07/01/25 00:00 07/01/25 02:08 Temperature Pulse Rate 81 76 70 Respiratory Rate 16 Blood Pressure Pulse Oximetry Oxygen Delivery Oxygen Flow Rate 07/01/25 02:20 07/01/25 04:00 07/01/25 06:00 Temperature 97.8 F Pulse Rate 77 75 71 Respiratory Rate 18 18 Blood Pressure 164/60 H Pulse Oximetry 97 Oxygen Delivery Oxygen Flow Rate Intake/Output Intake/Output: Intake & Output 06/28/25 06/29/25 06/30/25 07/01/25 23:59 23:59 23:59 23:59 Intake Total 500 2070 1270 Output Total 1050 1600 1500 Balance 500 1020 -330 -1500 Meds/Results Medications: Active Medications Generic Name Dose Route Start Last Admin Trade Name Freq PRN Reason Stop Dose Admin Acetaminophen 1,000 mg 06/29/25 12:36 07/01/25 06:28 Acetaminophen 500 Mg Tablet PO 1,000 mg Q6H PRN Administration Pain Acetylcysteine 200 mg 06/30/25 14:00 07/01/25 02:08 Acetylcysteine 20% Inhal Soln 800 Mg/4 Ml Vial INHALATION 200 mg Q6HRT GIOVANNY Administration Albuterol 2.5 mg 06/29/25 12:36 06/30/25 19:53 Albuterol Sulfate Neb 2.5 Mg/3 Ml Inh INHALATION 2.5 mg Q4H PRN Administration shortness of breath or wheezing Albuterol 2 puff 06/29/25 12:36 Albuterol Sulfate (*Sp) Aerosol 1 Puff INHALATION Q4H PRN Shortness Of Breath Or Wheezing Albuterol/Ipratropium 3 ml 06/29/25 08:00 07/01/25 02:07 Ipratropium 0.5 Mg/Albuterol Sulfate 2.5 Mg Ampul.Neb 3 Ml INHALATION 3 ml Q6HRT GIOVANNY Administration Aspirin 81 mg 06/29/25 13:00 06/30/25 10:15 Aspirin 81 Mg Enteric Tablet PO 81 mg DAILY GIOVANNY Administration Atorvastatin Calcium 80 mg 06/29/25 13:00 06/30/25 10:15 Atorvastatin 40 Mg Tablet PO 80 mg DAILY GIOVANNY Administration Azithromycin 250 mg 06/30/25 09:00 06/30/25 10:15 Azithromycin 250 Mg Tablet PO 07/03/25 09:01 250 mg DAILY GIOVANNY Administration Baclofen 10 mg 06/29/25 12:35 Baclofen 10 Mg Tablet PO Q12H PRN muscle spasm Benzonatate 200 mg 06/29/25 13:00 Benzonatate 100 Mg Capsule PO TID PRN Cough Bupropion HCl 150 mg 06/29/25 17:00 06/30/25 17:10 Bupropion Hcl Sr (12 Hr) 150 Mg Tab PO 150 mg BID GOIVANNY Administration Enoxaparin Sodium 40 mg 06/30/25 09:00 06/30/25 10:21 Enoxaparin 40 Mg/0.4 Ml Syringe SUB-Q 40 mg DAILY GIOVANNY Administration Ethambutol HCl 1,200 mg 06/29/25 10:15 06/30/25 10:15 Ethambutol Hcl 400 Mg Tablet PO 1,200 mg DAILY GIOVANNY Administration Fenofibrate 145 mg 06/29/25 13:00 06/30/25 10:16 Fenofibrate Nanocrystallized 145 Mg Tablet PO 145 mg QAM GIOVANNY Administration Furosemide 40 mg 06/29/25 13:00 06/29/25 14:45 Furosemide 40 Mg Tablet PO 40 mg DAILY GIOVANNY Administration Guaifenesin 1,200 mg 06/30/25 11:55 06/30/25 21:34 Guaifenesin 12 Hr 600 Mg Tabcr PO 1,200 mg Q12HR GIOVANNY Administration Hydroxyzine HCl 25 mg 06/29/25 12:36 Hydroxyzine Hcl 25 Mg Tablet PO QID PRN anxiety Linaclotide 290 mcg 06/30/25 06:30 07/01/25 06:17 Linaclotide 145 Mcg Capsule PO 290 mcg DAILY@0630 GIOVANNY Administration Lorazepam 0.5 mg 06/29/25 12:35 06/29/25 14:44 Lorazepam (*Crx) 0.5 Mg Tablet PO 0.5 mg BID PRN Administration anxiety Losartan Potassium 25 mg 07/01/25 09:00 Losartan Potassium 25 Mg Tablet PO DAILY GIOVANNY Metoprolol Succinate 50 mg 06/29/25 21:00 06/30/25 21:34 Metoprolol Succinate Ext Rel 50 Mg Tabcr PO 50 mg HS GIOVANNY Administration Morphine Sulfate 30 mg 06/29/25 12:40 06/29/25 14:44 Morphine Sulfate (*Crx) 30 Mg Tabcr PO 30 mg Q12H PRN Administration pain Nitroglycerin 0.4 mg 06/29/25 12:36 Nitroglycerin Sl 0.4 Mg Tablet SUBLINGUAL Q5M PRN chest pain Non-Formulary Medication 200 mg 06/29/25 17:00 06/30/25 17:10 Sulindac BY MOUTH 07/29/25 16:59 200 mg BID GIOVANNY Administration Ondansetron HCl 4 mg 06/29/25 03:35 Ondansetron Inj 4 Mg/2 Ml Vial IV PUSH Q4H PRN Nausea Pantoprazole Sodium 40 mg 06/29/25 13:00 06/30/25 10:12 Pantoprazole 40 Mg Tablet PO 40 mg QAM GIOVANNY Administration Rifampin 600 mg 06/30/25 15:35 07/01/25 06:17 Rifampin 300 Mg Capsule PO 600 mg DAILY@0600 GIOVANNY Administration Sertraline HCl 50 mg 06/29/25 13:00 06/30/25 10:16 Sertraline Hcl 50 Mg Tablet PO 50 mg DAILY GIOVANNY Administration Tamsulosin HCl 0.4 mg 06/29/25 10:15 06/30/25 17:10 Tamsulosin Hcl 0.4 Mg Capsule PO 0.4 mg BID GIOVANNY Administration Tobramycin/Dexamethasone 1 drop 06/29/25 13:00 06/30/25 21:34 Tobramycin/Dexamethasone Op 2.5 Ml Btl EACH EYE 1 drop QID GIOVANNY Administration Trazodone HCl 100 mg 06/29/25 21:00 06/30/25 21:35 Trazodone Hcl 50 Mg Tablet PO 100 mg HS GIOVANNY Administration Radiology Results: ITS Impressions Chest X-Ray 06/28/25 22:56 IMPRESSION: Increased right-sided pleural effusion when compared with previous study. Remainder of examination is unchanged. Chest CTA 06/29/25 05:32 Impression: No evidence of pulmonary embolus, aortic dissection, or aortic aneurysm. Patchy bilateral consolidation, suggestive of pneumonia and possible superimposed bibasilar atelectasis. There is significant worsening in the left upper lobe as compared to prior exam. Otherwise, remaining areas of airspace disease are similar to prior exam in the remainder of the lungs. Pulmonary edema not completely excluded, though felt to be somewhat less likely given the appearance and distribution of findings. Possible chronic scarring or at electasis in the right middle lobe. Minimal pleural effusions. Labs Labs: Laboratory Results - last 24 hr 06/30/25 08:09 WBC 7.4 RBC 2.83 L Hgb 7.9 L Hct 26.8 L MCV 94.7 MCH 27.9 MCHC 29.5 L RDW 16.9 H Plt Count 253 MPV 10.0 Immature Gran % (Auto) 0.9 H Neut % (Auto) 82.5 H Lymph % (Auto) 11.1 L [place] % (Auto) 5.4 Eos % (Auto) 0.0 Baso % (Auto) 0.1 L Lymph # (Auto) 0.82 L [place] # (Auto) 0.4 Eos # (Auto) 0.0 Baso # (Auto) 0.0 Abs Immat Gran (auto) 0.07 H Absolute Neuts (auto) 6.1 Absolute Nucleated RBC 0.000 Band Neutrophils % Not Reportable Nucleated RBC % 0.0 Platelet Estimate Adequate Hypochromasia 1+ Ovalocytes 1+ Schistocytes None seen ESR > 140 H Sodium 140 Potassium 4.4 Chloride 104 Carbon Dioxide 29 Anion Gap 7 BUN 25 H D Creatinine 1.10 Estim Creat Clear Calc 50 Estimated GFR > 60 Glucose 119 H Calcium 9.5 Phosphorus 4.0 Magnesium 2.1 C-Reactive Protein 9.7 H Procalcitonin 0.1 Quality VTE Prophylaxis VTE prophylaxis: pharmacologic ordered Hospitalist MIPS Advance Care Plan I have confirmed that the patient's Advanced Care Plan is present, code status is documented, or surrogate decision maker is listed in patient medical record.: Yes Medication Reconciliation I have utilized all available resources to obtain, update and review the patients current medications (includes all prescriptions, OTC, herbals, cannabis, and nutritional supplements).: Yes
[2025-07-01] MEDS: ATORVASTATIN 40 MG TABLET 80 MG PO (09:43)
[2025-07-01] MEDS: AZITHROMYCIN 250 MG TABLET PO (09:43)
[2025-07-01] MEDS: TAMSULOSIN HCL 0.4 MG CAPSULE PO ×2 (09:43→16:23)
[2025-07-01] MEDS: PANTOPRAZOLE 40 MG TABLET PO (09:43)
[2025-07-01] MEDS: ASPIRIN 81 MG ENTERIC TABLET PO (09:43)
[2025-07-01] MEDS: [UNRECOGNIZED DRUG - OTHER] BY MOUTH ×2 (09:43→16:24)
[2025-07-01] MEDS: SULINDAC 200 MG BY MOUTH ×2 (09:43→16:24)
[2025-07-01] MEDS: LOSARTAN POTASSIUM 25 MG TABLET PO (09:43)
[2025-07-01] MEDS: guaiFENesin 12 HR 600 MG TABCR 1200 MG PO ×2 (09:43→20:34)
[2025-07-01] MEDS: TOBRAMYCIN/DEXAMETHASONE OP 2.5 ML BTL 1 DROP EACH EYE ×4 (09:43→20:35)
[2025-07-01] MEDS: FENOFIBRATE NANOCRYSTALLIZED 145 MG TABLET PO (09:43)
[2025-07-01] MEDS: SERTRALINE HCL 50 MG TABLET PO (09:43)
[2025-07-01] MEDS: ETHAMBUTOL HCL 400 MG TABLET 1200 MG PO (09:43)
[2025-07-01] MEDS: buPROPion HCL SR (12 HR) 150 MG TAB PO ×2 (09:43→16:23)
[2025-07-01] MEDS: ENOXAPARIN 40 MG/0.4 ML SYRINGE SUB-Q (09:45)
--- NOTE | 2025-07-01 09:47 | PM.PNPUL ---
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 patient started on rifabutin 300 q.day, azithromycin 500 mg q.day, ethambutol 1200 mg q.day on 06/05/2025. Patient with a history of SNEHA in sputum, multiple pulmonary infections requiring antibiotics on 02/25/2024, 04/10/2024, 09/08/2024, 10/04/2024, 11/04/2024, 11/20/2024, 12/02/2024, 03/02/2025, 04/25/2025, 05/12/2025, and 05/22/2025. Other comorbidities include COPD and history of fluid overload. Admitted to the hospital on 06/15/2025 with decreased hearing and azithromycin decreased from 500 to 250 mg p.o. q.day. 06/30/2025: Patient presents with weakness, fatigue, hypoxic respiratory failure. he denies fever, chills, rigors, change in his cough, change in his phlegm which is minimal and no hemoptysis. CT scan compared to 06/01/2025 with new consolidative infiltrate anterior segment of the left upper lobe and worse consolidative infiltrate superior segment of the left lower lobe with no change in his right upper lobe, right middle lobe and right lower lobe infiltrates. Currently the patient is on 2 L nasal cannula with saturations 100%. Oxygenation is better than baseline which is usually 4 L at home. On detailed review of the patient's pills and pill bottles at home with sonMarco, over the phone ethambutol was not seen. Rifabutin was emptied. Patient called the clinic on 06/27/2025 stating they sent him home from the hospital on 06/23/2025 without azithromycin and I prescribed azithromycin 250 a day for 30 days and they filled the prescription for 5 pills and he took this on 06/27 and 06/28/25. Plan: Etiology of new infiltrates are likely continued MAC lung disease due to noncompliance with ethambutol, rifabutin and azithromycin. Patient and son are very confused about the medicines. Will continue ethambutol 1200 mg p.o. q.day, rifabutin 300 mg p.o. q.day and azithromycin 250 mg p.o. q.day. The hospital does not have rifabutin. I have spoken to Marco, son, who will drive to the pharmacy to tack picker this prescription of the rifabutin and bring it to the hospital so the patient can take this as a home medicine. Later in day bedside nurse informed me that rifabutin is not available at the pharmacy and cannot be delivered until 07/03/2025. Discussed with ID pharmacist and will place the patient on rifampin 600 mg p.o. q.day 1st dose today. 07/01/25: Patient says that he could not sleep because of a headache. Tells me he is breathing normal. His cough is normal. He has a little bit of clear to green phlegm but no hemoptysis. He is afebrile. He diuresed 330 mL yesterday. I reviewed a large grocery bag of his home medications and there was no ethambutol, rifabutin or azithromycin. There was a new prescription picked up yesterday with azithromycin 250 mg p.o. q.day with a total of 30 pills. He has been noncompliant since leaving the hospital on 06/23/2025. Plan: Continue ethambutol 1200 mg p.o. q.day, azithromycin 250 mg p.o. q.day, rifampin 600 mg p.o. q.day all day 2. Discussed with Mita Gaytan, will follow with you. (2) Chronic hypoxic respiratory failure, on home oxygen therapy: Code(s): J96.11 - Chronic respiratory failure with hypoxia; Z99.81 - Dependence on supplemental oxygen Status: Acute Assessment and Plan: 06/30/25: on discharge from the hospital 06/23/2024 patient was using 3-4 L at rest. At home patient has been using 4 L at rest with home pulse oximetry 91. Recently 4 L with activity saturations were decreasing to 85%. at home he had been wearing 4 L with sleep. Plan: Goal saturation 90-94. Titer oxygen accordingly. 07/01/25: When I enter the room he was on 3 L nasal cannula with saturations 98%. I sequentially decreased him to room air and his saturations were 91%. I walked the patient with his walker on 4 L nasal cannula to the door and back a total of 40 ft and his saturations remained 94 when ambulating and sitting on the side of the bed after he ambulated saturations were 93%. He had dyspnea on exertion and stated at home the most he could walk was to the end of his bed. Patient brought his home pulse oximeter in and the back casing was missing. When correlated with 2 different hospital pulse oximeter is his pulse oximeter was 2 percentage points lower than the hospitals. Plan: goal saturation 90-94%. When he ambulates he should wear 4 L. I will perform an overnight oximetry on 2 L. patient's current home pulse oximeter appears to be broken and was reading 2 percentage points lower than the hospitals. The patient tells me that they have ordered a new pulse oximeter and I have told him once it arrives to bring it into the hospital so that we can verify it is working properly. (3) Chronic obstructive pulmonary disease: Code(s): J44.9 - Chronic obstructive pulmonary disease, unspecified Status: Acute Assessment and Plan: Gold grade 2 group E COPD Regarding his COPD, patient with 60 pack year tobacco use quit in 2019, alpha 1 anti trypsin genotype MM, [id number] apical predominant centrilobular and paraseptal emphysema on his CT scan from 10/11/2021. Of note he has had COVID pneumonia on 09/10/2021 and Pseudomonas aeruginosa on 10/10/2021 and 04/26/2025 and 06/16/2025. His PFTs from 12/16/2023 show mild obstruction with FEV1 68%, ratio 61%. No bronchodilator response, hyperinflation, severely decreased DLCO the remains mildly decreased when adjusted for alveolar volume. Compared to 01/01/2022 had been a significant decrease in the FVC, FEV1, total lung capacity, functional residual capacity and diffusing capacity. When admitted for pneumonia had an ABG on 02/25/2024 on 3 L nasal cannula 7.44/36/67. 10/04/2024: ABG on 2 L 7.43/41/75. 06/29/2025: 2 L ABG 7.37/49/113. 10/04/2024: White blood cell count 11.1 eosinophils 3.2%=355/uL. 04/09/2024 white blood cell count 11.1, eosinophils 0.4%=44/uL. 06/28/2025 white blood cell count 14.8, 1.8%=266 uL. Tested positive for COVID 11/13/2023 treated with Paxlovid, rebound symptoms treated with clarithromycin and doxycycline. Hospitalize 02/25/2024 for pneumonia with sputum showing Haemophilus treated with steroids. Hospitalized 04/10/24 to 04/12/24 for COPD exacerbation treated with prednisone and azithromycin. 09/08/2024 cold symptoms, treated with doxycycline and prednisone taper. 10/04/2024 ED visit for shortness of breath treated for fluid overload and COPD exacerbation with prednisone and Augmentin. 11/04 admitted to [facility] with congestive heart failure and pneumonia no evidence of COPD exacerbation. 11/20 admitted to [facility] for shortness of breath, fluid overload and possible pneumonia. 12/02/2024 through 12/06/2024 admitted to [facility] treated for pneumonia. sputum from 12/17/2024 grew out Alcaligenes xylosoxidans sensitive to meropenem and Septra, intermediate to Zosyn, resistant to ceftaz, levofloxacin and imipenem. 03/02/2025 patient with increased phlegm production and treated for bronchitis with Septra DS 2 tablets twice a day x 7 days. 06/30/25: Patient denies any recent change in his phlegm production, phlegm volume, change in phlegm color. he has new infiltrates on his x-ray but no wheezing. Plan: I do not believe he is having a COPD exacerbation and will discontinue all inhaled and systemic steroids as he has MAC lung disease. I will continue DuoNebs q.6 hours, Mucomyst nebulizers q.6 hours, guaifenesin 1200 mg p.o. b.i.d., vest therapy b.i.d., Cornet flutter valve q.4 hours while awake to aid in expectoration. 07/01/25: breathing at his baseline. Plan: Continue DuoNebs q.6 hours, Mucomyst nebulizers q.6 hours, guaifenesin 1200 mg p.o. b.i.d., vest therapy b.i.d., Cornet flutter valve q.4 hours while awake to aid in expectoration. Subjective Date/time seen: 07/01/25 09:47 Interval history: 06/30/2025: This is a new pulmonary consult for COPD with pulmonary MAC 80-year-old with a history of coronary artery disease status post non ST elevation [place] 08/2019, ischemic cardiomyopathy, hypertension, hyperlipidemia, Gold grade 2 group B COPD on home oxygen 4 L at rest, with activity and with sleep and MAC lung disease (started on ribabutin, azithromycin and ethambutol on 06/05/2025) patient is followed in the Pulmonary Clinic. He has required antibiotics for lung infections on: 02/25/2024, 04/10/2024, 09/08/2024, 10/04/2024, 11/04/2024, 11/20/2024, 12/02/2024, 03/02/2025, 04/25/2025, 05/12/2025, 05/22/2025, 05/30/2025 and 06/15/2025. Patient recently admitted to the hospital from 06/15/2025 to 06/23/2025 for shortness of breath and hypoxia. he was treated with Levaquin, pulmonary hygiene maneuvers and his azithromycin was decreased from 500 mg p.o. q.day to 250 mg p.o. q.day due to hearing decrease. Patient left the hospital on 06/23/2024 in no respiratory distress but he was weak and fatigued easily. I spoke to the son Marco today. The patient lives in Marco's house and tired sees him every day. The patient's daughter had been the primary caregiver but now Sim is the caregiver. The patient was in his usual state of health until 06/27/2025 when he was very tired and exhausted. 06/28/2025 was supposed to be the patient's 1st day for home health therapy but he was somewhat confused, sleep and not waking up during the day. His room air saturations on 4 L were 91%. He denied fever, chills, rigors, change in his cough, change in his phlegm or hemoptysis. With activity on 4 L patient saturation decreased to 85%. Patient remained somnolent and EMS was called. 06/28/25 Patient presented to the emergency room with blood pressure 111/47, heart rate 82, respirations 18, temperature 98?, non-rebreather mask 7 L saturation 97%. White blood cell count 14.8, creatinine 1.46, BUN 45, BNP 669. ABG on 2 L was 7.37/49/113. CT angiogram of the chest showed emphysema. New consolidative infiltrate anterior segment left upper lobe, worsening consolidation and infiltrate in the suit soup superior segment of the left lower lobe in no change in his chronic infiltrates right upper lobe, right middle lobe, right lower lobe and no change in his small right pleural effusion. Patient was given bronchodilators, Solu-Medrol 125, ceftriaxone and azithromycin admitted to the hospital. 06/29/2025: Admitted to the floor and placed on prednisone 40 mg p.o. q.day, azithromycin 250 a day, ethambutol 1200 mg p.o. q.day, and DuoNebs q.6 hour. patient was on 2 L nasal cannula in the morning with saturations 92. At 8:00 p.m. patient was on 3 L nasal cannula saturations 96%. 06/30/2025: Today the patient tells me he is breathing at his baseline. His son Sim saw him this morning and feels that he is breathing the same as he was when he left the hospital on 06/23/2025. His cough is at his baseline. He has minimal phlegm. He denies fever, chills, rigors, hemoptysis. when I enter the room he was on 4 L with saturations 98%. I decreased him to room air and his saturations were 89%. I placed him back on 2 L and his saturations were 100%. The patient walked 8 ft with physical therapy and she told me his saturations on 4 L decreased to 85%. His white blood cell count is 7.4, his creatinine is 1.10, he is afebrile. on detailed review of the patient's pills and pill bottles at home with Sim over the phone ethambutol was not seen. Rifabutin was emptied. Patient called the clinic on 06/27/2025 stating they sent him home from the hospital on 06/23/2025 without azithromycin and I prescribed azithromycin 250 a day for 30 days and they filled the prescription for 5 pills and he took this on 06/27 and 06/28/25. later in day bedside nurse informed me that rifabutin is not available at the pharmacy and cannot be delivered until 07/03/2025. Discussed with ID pharmacist and will place the patient on rifampin 600 mg p.o. q.day 1st dose today. 07/01/25: Patient says that he could not sleep because of a headache. Tells me he is breathing normal. His cough is normal. He has a little bit of clear to green phlegm but no hemoptysis. He is afebrile. He diuresed 330 mL yesterday. When I enter the room he was on 3 L nasal cannula with saturations 98%. I sequentially decreased him to room air and his saturations were 91%. I walked the patient with his walker on 4 L nasal cannula to the door and back a total of 40 ft and his saturations remained 94 when ambulating and sitting on the side of the bed after he ambulated saturations were 93%. He had dyspnea on exertion and stated at home the most he could walk was to the end of his bed. I reviewed a large grocery bag of his home medications and there was no ethambutol, rifabutin or azithromycin. There was a new prescription picked up yesterday with azithromycin 250 mg p.o. q.day with a total of 30 pills. Patient brought his home pulse oximeter in and the back casing was missing. When correlated with 2 different hospital pulse oximeter is his pulse oximeter was 2 percentage points lower than the hospitals. DATA (infectious disease): 06/23/25:. His sputum shows moderate growth of Pseudomonas aeruginosa (recurrent) and Lucia. Pseudomonas sensitive to amikacin, aztreonam, ceftazidime, cefepime, gentamicin, meropenem, Zosyn and tobramycin. Intermediate to ciprofloxacin and imipenem. Resistant to Levaquin. 12/15/2024 sputum with AFB verified on 01/14/25 and grew SNEHA on 03/03/25. Sensitivities 03/20/25. On 03/20/25 patient referred to [facility] with appointment scheduled for 05/02/2025. Sputum on 12/16/2024 with AFB verified on 01/20/25 and grew SNEHA on 02/01/25.?Sensitivities 03/28/25. 2024 admissions: * 05/30/2025 [facility] admission shortness of breath; transferred to [place] 06/04 to 06/07; discharged on Levaquin to continue until June 18; continue SNEHA meds * 05/12/2025, ER visit, shortness of breath, home. * 04/25/25 -04/28/25; admitted [facility] respiratory distress, hypoxemia, transferred to [place]; ID saw him 05/02/25; SNEHA; started Rx w azithromycin 500 mg/D, Rifabutin 300 mg/D, ethambutol 1200 mg/ day initial sputum with SNEHA was 12/16/2024 with AFB verified on 01/20/25 and grew SNEHA on 02/01/25.?Sensitivities 03/28/25. QuantiFERON gold was negative on 01/24/25. ORGANISM: MYCOBACTERIUM AVIUM COMPLEX AMIKACIN: 16 S mcg/mL AMIKACIN (LIPOSOMAL, INHALED): 16 S mcg/mL CIPROFLOXACIN: >8 mcg/mL CLARITHROMYCIN: 2 S mcg/mL CLOFAZIMINE: 0.25 mcg/mL DOXYCYCLINE: >8 mcg/mL LINEZOLID: 16 I mcg/mL MINOCYCLINE: >8 mcg/mL MOXIFLOXACIN: 4 R mcg/mL RIFABUTIN: 1 mcg/mL RIFAMPIN: >4 mcg/mL STREPTOMYCIN: >32 * This is a corrected result. * A prior result that was reported as final has been changed. 1. Mycobacterium avium complex M.I.C. RX --------- --- Rifampin AFB >4 S Streptomycin AFB R Amikacin AFB 16 S Moxifloxacin AFB R DATA (imaging and PFT): 06/29/2025: Clinical Indication: Hypoxia CT Scan of the Chest with Contrast: Technique: Contiguous sections were acquired throughout the chest after intravenous administration of 100 cc of Omnipaque 350. Dose reduction technique was used on this scan by utilizing automated exposure control and iterative reconstruction technique. The dose-length product (DLP) was 283.61 mGy-cm. COMPARISON: 06/01/2025 Findings: Multiple shotty/minimally enlarged mediastinal lymph nodes are present along the right paratracheal stripe and AP window region. There is no filling defect in the pulmonary arterial tree to suggest pulmonary embolus. There is no evidence of aortic dissection or aneurysm. No pericardial effusion. There are small bilateral pleural effusions. Bibasilar consolidation with air bronchograms is present, which could reflect atelectasis/pulmonary edema versus pneumonia. There is probable chronic scarring or interstitial change in the right middle lobe. There are patchy areas of consolidation the left upper lobe and right upper lobe, which could reflect additional or new versus pneumonia. There is mild to moderate emphysema.. Images through the upper abdomen reveal no abnormalities. Impression: No evidence of pulmonary embolus, aortic dissection, or aortic aneurysm. Patchy bilateral consolidation, suggestive of pneumonia and possible superimposed bibasilar atelectasis. There is significant worsening in the left upper lobe as compared to prior exam. Otherwise, remaining areas of airspace disease are similar to prior exam in the remainder of the lungs. Pulmonary edema not completely excluded, though felt to be somewhat less likely given the appearance and distribution of findings. Possible chronic scarring or atelectasis in the right middle lobe. Minimal pleural effusions. 05/12/25: EXAMINATION: CTA chest PE protocol DATE: 05/12/2025 14:25 INDICATION: Dyspnea. Elevated d-dimer. TECHNIQUE: Computed tomography (CT) pulmonary angiogram of the chest was performed with 100 mL Omnipaque-350 intravenous contrast. Additional 3D reconstructions utilizing coronal maximum intensity projection (MIP) were performed. Automated exposure control and iterative reconstruction technique were employed. The dose-length product was 310.42 mGy-cm. COMPARISON: 04/26/2025 FINDINGS: No pulmonary embolism. Mild emphysema. Bronchial wall thickening in the bilateral lower lobes with some frothy appearing mucous in the right bronchus intermedius and right lower lobar bronchi consistent with bronchitis. Unchanged small right pleural effusion is been some interval improvement in groundglass opacities and patchy consolidation in the right lower lobe consistent with improving pneumonia. There is unchanged region of peripheral round atelectasis in the posterior left lower lobe with associated architectural distortion and volume loss. Additional unchanged linear discoid atelectasis at the right middle lobe. Heart size is normal. Atherosclerotic coronary artery calcific location. No pericardial effusion. Thoracic aorta is normal in caliber with no dissection. Enlargement of the central pulmonary arteries consistent with pulmonary arterial hypertension. No pathologically enlarged thoracic lymphadenopathy. Moderate-sized sliding-type hiatal hernia. Multiple low-attenuation cysts scattered throughout the liver measuring up to 1.5 cm. There is also a 1.8 cm cyst at the upper pole the right kidney. Mild thoracic spondylosis with bridging osteophytes at multiple levels consistent with diffuse idiopathic skeletal hyperostosis (DISH). IMPRESSION: 1. No pulmonary embolism. 2. Decreasing consolidation in the right lower lobe consistent with improving pneumonia. 3. Unchanged small right pleural effusion. 4. Mild emphysema and enlargement of the central pulmonary arteries consistent with pulmonary arterial hypertension. 5. Moderate-sized sliding-type hiatal hernia. 04/26/2025: EXAMINATION: CTA chest PE protocol DATE: 04/26/2025 13:46 CDT INDICATION: Shortness of breath TECHNIQUE: Computed tomographic angiography (CTA) of the chest was performed with 100 mL Omnipaque-350 intravenous contrast. The dose-length product was 256.22 mGy-cm. Maximum intensity projection 3D-reconstructions of the aorta and other arteries were constructed by the technologist on a separate workstation. Automated exposure control and iterative reconstruction technique were employed. COMPARISON: Chest x-ray dated 04/25/[address] dated 11/20/2024. FINDINGS: Small right pleural effusion. Trace left pleural effusion. There is mediastinal lymphadenopathy. There is right hilar lymphadenopathy. There is atherosclerosis of the aorta and coronary arteries. Small hiatal hernia. Heart size normal. Pulmonary arteries are enlarged, consistent with pulmonary hypertension. Study is technically adequate without evidence for pulmonary embolism. There is patchy bilateral airspace disease of the right upper, right middle and bilateral lower lobes, consistent with multifocal pneumonia. No endobronchial lesions. There is emphysema. No suspicious pulmonary nodules or masses. Mild thoracic spondylosis. No focal lytic or blastic lesions. IMPRESSION: 1. Multifocal airspace disease, consistent with pneumonia. 2: Bilateral pleural effusions, right greater than left. 3: Mediastinal lymphadenopathy, likely reactive. 4.: Pulmonary artery enlargement, consistent with pulmonary hypertension. 5: Emphysema. My read: I have compared this to CT scans from 11/20/2024 and 08/29/2024 and 02/25/2024. Current CT shows no PE, , Small right pleural effusion, worsening consolidation and infiltrates in the right lower lobe compared to 11/20/2024 and 02/25/2024. Compared to CT scan on 02/25/2024 currently there are some areas of improved consolidation in the right lower lobe and some different areas with worsening consolidations in the right lower lobe. There is unchanged consolidation in the posterior left lower lobe with no change compared to 11/20/2024, 08/29/2024 and that have improved from 02/25/2024. Currently there are patchy consolidations in the right middle lobe some which were present on 11/20/2024 and some that are new. There were no infiltrates on 08/29/2024 in the right middle lobe. 01/02/25: Modified barium swallow: Impression: Moderate dysphagia 11/20/24: EXAMINATION:. Recommendations: Regular but easy to chew diet with regular liquids but patient must use chin tuck posture with all eating and drinking to prevent pharyngeal residual and instances of laryngeal penetration and aspiration. He was referral to outpatient speech therapy. 12/14/24: CRP 3.6, ESR 134, CPK 43, Aspergillus Niger IgE 0.31, very low level. Aspergillus Niger antibody negative, Aspergillus flatus antibody negative. Aspergillus fumigatus antibody negative. Rheumatoid factor 12.9, anti CCP antibody less than 16. TERRA screen positive with an anti-DNA antibody 27 (positive greater than 10), Anca screen negative, hypersensitivity pneumonitis panel negative. 01/24/2025: QuantiFERON gold negative. IgE 691 normal less than 114, rheumatoid factor 12.9. IgG 693, IgM 90, IgA 212, all normal. Aldolase 5.0 11/20/2024: CTA chest PE protocol INDICATION: Hypoxia elevated d-dimer COMPARISON: 08/29/2024 and 10/11/2021. FINDINGS: No filling defects within the main or proximal pulmonary arteries. The thoracic aorta is unremarkable. No aneurysmal dilatation or dissection. The heart is of normal size, without pericardial effusion. Panlobular emphysematous disease is identified. Patchy groundglass opacification detected bilaterally. Small bilateral pleural effusions with adjacent compressive atelectasis Multiple subcentimeter areas of decreased attenuation within the liver, unchanged dating back to 10/11/2021. IMPRESSION: No pulmonary embolus. No aneurysmal dilatation or dissection within the thoracic aorta. Small bilateral pleural effusions with adjacent compressive atelectasis. 08/16/2024: Overnight oximetry on 3 L nasal cannula. The report in the computer status overnight oximetry on room air but this is mislabeled as the test was performed on 3 L. Recording duration 8 hours and 39 minutes. Basal saturation 92.1%. High saturation 96%. Low saturation 79%. Time with saturation less than or equal to 88% was 4 minutes and 58 seconds. I will continue oxygen 3 L at night. 06/24/2024: This is a 6 minute walk test. The test was performed and interpreted in accordance with the 2014 ERS/ATS task force guidelines. Of note, patient used to wheeled walker for stability and the testing was performed on his home portable oxygen concentrator at 3 L with pulse dose. Findings: The patient's resting 3 L oxygen saturation measured by pulse oximetry was 95% and heart rate was 80 bpm. Patient ambulated for 137 meters and oxygen saturation remained 91 to 92%. Heart rate at the end of the study was 94 bpm. The patient did not have rest or exertional hypoxemia on 3 L nasal cannula pulse dose with his portable oxygen concentrator. 02/25/24 - CTA chest (ER) - No PE identified. 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 There is patchy consolidation in the right middle and bilateral lower lobes with additional regions of tree-in-bud opacity scattered throughout both lungs consistent with multifocal pneumonia. There is associated bronchial wall thickening and mucous plugging in the bilateral lower lobes. Tiny left pleural effusion. No septal line thickening to suggest pulmonary edema. No pneumothorax. Mild cardiomegaly. Atherosclerotic coronary artery calcifications. No pericardial effusion. 02/25/2024: ABG on 4 L cannula 7.39/35/63 01/15/24 - Home O2 eval - Required 2L/min O2 with ambulation and none at rest. 12/16/23 - PFT The test was performed and results interpreted in accordance with the 2019 and 2005 ATS/ERS Task Force guidelines respectively using the Global Lung Function Initiative-2012 reference equations. Patient demonstrated good effort and cooperation. Reproducibility criteria were met. The quality of the pre bronchodilator spirometry maneuver was Grade A and post bronchodilator spirometry maneuver was Grade A. Findings: Spirometry: There is decreased maximal expiratory airflow at all lung volumes with concave expiratory flow tracing. The contour the inspiratory flow tracing is normal. The pre bronchodilator FVC is 3.33 L, 82% predicted. The pre bronchodilator FEV1 is 2.02 L, 68% predicted. The pre bronchodilator FEV1: FVC ratio 61%. The post bronchodilator FVC is 3.41 L, representing a 2% increase. The post bronchodilator FEV1 is 2.09 L, representing a 3% increase. The post bronchodilator FEV1: FVC ratio 61%. Plethysmography: The total lung capacity is 6.43 L, 89% predicted. The functional residual capacity is 4.14 L, 106% predicted. The residual volume is 3.10 L, 115% predicted. The residual volume: Total lung capacity ratio is 48%. Diffusing capacity: The diffusing capacity unadjusted for hemoglobin and carboxyhemoglobin is 9.0, 37% predicted. The diffusing capacity adjusted for alveolar volume is 2.29, 64% predicted. Comparison to previous pulmonary function testing on 01/01/2022 the post bronchodilator FVC has decreased from 4.38 L to 3.41 L. The post bronchodilator FEV1 has decreased from 3.11 L to 2.09 L. the total lung capacity is decreased from 7.39 L to 6.43 L. The functional residual capacity has decreased from 4.95 L to 4.14 L. The residual volume is unchanged from 2.93 L to 3.10 L. The diffusing capacity unadjusted for hemoglobin and carboxyhemoglobin is decreased from 14.9 to 9.0. The diffusing capacity adjusted for alveolar volume decreased from 2.63 to 2.29 Impression: There is a mild obstructive abnormality. There is no significant improvement after inhaling a single dose of albuterol. The increase in residual volume to total lung volume ratio is consistent with hyperinflation from an obstructive abnormality. The diffusing capacity unadjusted for hemoglobin and carboxyhemoglobin is severely decreased and remains mildly decreased when adjusted for alveolar volume. Compared to prior pulmonary function testing on 01/01/2022 there has been a significant decrease in the FVC, FEV1, total lung capacity, functional residual capacity and diffusing capacity with no significant change in the residual volume. 09/16/23 - Home O2 eval - Required 2L/min O2 with ambulation and none at rest. 01/01/22 - Home O2 eval - Patient did not require supplemental oxygen at rest or with exertion. 01/01/22 - PFTs - Mild obstructive abnormality with normal FEV1 without significant improvement after inhaling a single dose of albuterol. Lung volumes normal. The diffusing capacity unadjusted for hemoglobin is moderately decreased and normalizes when adjusted for alveolar volume. 12/18/21 - Overnight oximetry on room air - Time with saturation less than or equal to 88% was 4.0 minutes. Patient does not qualify for supplemental oxygen at night. 10/10/2021 - ABG on 4L NC - 7.44/43/70. 10/20/21 - Chest XR - Persistent patchy bilateral airspace disease with possible improvement in the left lung, compatible with pneumonia. 10/11/2021 - CTA chest - Extensive bilateral pulmonary infiltrates and likely reactive hilar or mediastinal adenopathy. Small right pleural effusion. No evidence of pulmonary embolism. 10/11/2021 - Echo - LV systolic function mildly reduced, EF 45-50%. Grade I diastolic dysfunction. The inferior wall, inferoseptal wall, basal inferolateral wall, and mid inferolateral wall are hypokinetic. Mild LA enlargement. No pulmonary hypertension. Review of Systems Constitutional: Constitutional: Reports no additional constitutional complaints Eyes: Eyes: Reports no additional eye complaints ENT: Reports system reviewed and no additional complaints, except as documented Cardiovascular: Cardiovascular: Reports no additional cardiovascular complaints Respiratory: Respiratory: Reports no additional respiratory complaints Gastrointestinal: Gastrointestinal: Reports no additional gastrointestinal complaints Musculoskeletal: Musculoskeletal: Reports no additional musculoskeletal complaints Neurologic: Reports system reviewed and no additional complaints, except as documented Psychiatric: Psychiatric: Reports no additional psychiatric complaints Endocrine: Endocrine: Reports no additional endocrine complaints Hematologic/Lymphatic: Hematologic/Lymphatic: Reports no additional hematologic/lymphatic complaints Allergic/Immunologic: Allergic/Immunologic: Reports no additional allergic/immunologic complaints Exam Const: General: cooperative, healthy appearing and comfortable Orientation/consciousness: oriented to person, oriented to place and oriented to time HENMT: Head: normal to inspection Ears: hearing grossly normal bilaterally Eyes: General: appearance normal, both eyes and all related structures Neck: Neck: normal visual inspection Chest: Chest palpation & inspection: normal inspection of the chest Resp: Effort & Inspection: normal respiratory effort and able to speak in complete sentences Auscultation: crackles, no rales, no rhonchi, no wheezes and lung sounds not diminished Other: Bilateral inspiratory crackles. No wheezes. Cardio: Jugular venous distension: no JVD GI: Inspection: normal to inspection Skin: General skin exam: normal color Neuro: General: oriented to person, oriented to place and oriented to time Extrem: General: normal to inspection Psych: Appearance: grossly normal Objective Data Vital Signs Vital Signs: Vital Signs - 24 hr 06/30/25 11:17 06/30/25 12:00 06/30/25 13:38 Temperature Pulse Rate 64 69 Respiratory Rate 12 Blood Pressure Pulse Oximetry Oxygen Delivery Nasal Cannula Oxygen Flow Rate 3 06/30/25 13:43 06/30/25 14:02 06/30/25 16:00 Temperature 36.2 C L Pulse Rate 70 64 58 L Respiratory Rate 16 19 Blood Pressure 114/40 L Pulse Oximetry 96 Oxygen Delivery Oxygen Flow Rate 06/30/25 19:53 06/30/25 19:55 06/30/25 20:05 Temperature Pulse Rate 71 Respiratory Rate 18 Blood Pressure Pulse Oximetry 96 96 Oxygen Delivery Nasal Cannula Nasal Cannula Oxygen Flow Rate 3 3 06/30/25 20:06 06/30/25 20:10 06/30/25 21:26 Temperature 37.1 C Pulse Rate 74 77 80 Respiratory Rate 16 20 Blood Pressure 139/50 L Pulse Oximetry 96 Oxygen Delivery Oxygen Flow Rate 06/30/25 21:34 07/01/25 00:00 07/01/25 02:08 Temperature Pulse Rate 81 76 70 Respiratory Rate 16 Blood Pressure Pulse Oximetry Oxygen Delivery Oxygen Flow Rate 07/01/25 02:20 07/01/25 04:00 07/01/25 06:00 Temperature 36.6 C Pulse Rate 77 75 71 Respiratory Rate 18 18 Blood Pressure 164/60 H Pulse Oximetry 97 Oxygen Delivery Oxygen Flow Rate 07/01/25 08:49 07/01/25 08:57 Temperature Pulse Rate 74 70 Respiratory Rate 16 16 Blood Pressure Pulse Oximetry Oxygen Delivery Oxygen Flow Rate Intake/Output Intake/Output: Intake & Output 06/28/25 06/29/25 06/30/25 07/01/25 23:59 23:59 23:59 23:59 Intake Total 500 2070 1270 Output Total 1050 1600 1500 Balance 500 1020 -330 -1500 Meds/Results Medications: Active Medications Generic Name Dose Route Start Last Admin Trade Name Freq PRN Reason Stop Dose Admin Acetaminophen 1,000 mg 06/29/25 12:36 07/01/25 06:28 Acetaminophen 500 Mg Tablet PO 1,000 mg Q6H PRN Administration Pain Acetylcysteine 200 mg 06/30/25 14:00 07/01/25 08:46 Acetylcysteine 20% Inhal Soln 800 Mg/4 Ml Vial INHALATION 200 mg Q6HRT GIOVANNY Administration Albuterol 2.5 mg 06/29/25 12:36 06/30/25 19:53 Albuterol Sulfate Neb 2.5 Mg/3 Ml Inh INHALATION 2.5 mg Q4H PRN Administration shortness of breath or wheezing Albuterol 2 puff 06/29/25 12:36 Albuterol Sulfate (*Sp) Aerosol 1 Puff INHALATION Q4H PRN Shortness Of Breath Or Wheezing Albuterol/Ipratropium 3 ml 06/29/25 08:00 07/01/25 08:46 Ipratropium 0.5 Mg/Albuterol Sulfate 2.5 Mg Ampul.Neb 3 Ml INHALATION 3 ml Q6HRT GIOVANNY Administration Aspirin 81 mg 06/29/25 13:00 07/01/25 09:43 Aspirin 81 Mg Enteric Tablet PO 81 mg DAILY GIOVANNY Administration Atorvastatin Calcium 80 mg 06/29/25 13:00 07/01/25 09:43 Atorvastatin 40 Mg Tablet PO 80 mg DAILY GIOVANNY Administration Azithromycin 250 mg 06/30/25 09:00 07/01/25 09:43 Azithromycin 250 Mg Tablet PO 07/03/25 09:01 250 mg DAILY GIOVANNY Administration Baclofen 10 mg 06/29/25 12:35 Baclofen 10 Mg Tablet PO Q12H PRN muscle spasm Benzonatate 200 mg 06/29/25 13:00 Benzonatate 100 Mg Capsule PO TID PRN Cough Bupropion HCl 150 mg 06/29/25 17:00 07/01/25 09:43 Bupropion Hcl Sr (12 Hr) 150 Mg Tab PO 150 mg BID GIOVANNY Administration Enoxaparin Sodium 40 mg 06/30/25 09:00 07/01/25 09:45 Enoxaparin 40 Mg/0.4 Ml Syringe SUB-Q 40 mg DAILY GIOVANNY Administration Ethambutol HCl 1,200 mg 06/29/25 10:15 07/01/25 09:43 Ethambutol Hcl 400 Mg Tablet PO 1,200 mg DAILY GIOVANNY Administration Fenofibrate 145 mg 06/29/25 13:00 07/01/25 09:43 Fenofibrate Nanocrystallized 145 Mg Tablet PO 145 mg QAM GIOVANNY Administration Furosemide 40 mg 06/29/25 13:00 06/29/25 14:45 Furosemide 40 Mg Tablet PO 40 mg DAILY GIOVANNY Administration Guaifenesin 1,200 mg 06/30/25 11:55 07/01/25 09:43 Guaifenesin 12 Hr 600 Mg Tabcr PO 1,200 mg Q12HR GIOVANNY Administration Hydroxyzine HCl 25 mg 06/29/25 12:36 Hydroxyzine Hcl 25 Mg Tablet PO QID PRN anxiety Linaclotide 290 mcg 06/30/25 06:30 07/01/25 06:17 Linaclotide 145 Mcg Capsule PO 290 mcg DAILY@0630 GIOVANNY Administration Lorazepam 0.5 mg 06/29/25 12:35 06/29/25 14:44 Lorazepam (*Crx) 0.5 Mg Tablet PO 0.5 mg BID PRN Administration anxiety Losartan Potassium 25 mg 07/01/25 09:00 07/01/25 09:43 Losartan Potassium 25 Mg Tablet PO 25 mg DAILY GIOVANNY Administration Metoprolol Succinate 50 mg 06/29/25 21:00 06/30/25 21:34 Metoprolol Succinate Ext Rel 50 Mg Tabcr PO 50 mg HS GIOVANNY Administration Morphine Sulfate 30 mg 06/29/25 12:40 06/29/25 14:44 Morphine Sulfate (*Crx) 30 Mg Tabcr PO 30 mg Q12H PRN Administration pain Nitroglycerin 0.4 mg 06/29/25 12:36 Nitroglycerin Sl 0.4 Mg Tablet SUBLINGUAL Q5M PRN chest pain Non-Formulary Medication 200 mg 06/29/25 17:00 07/01/25 09:43 Sulindac BY MOUTH 07/29/25 16:59 200 mg BID GIOVANNY Administration Ondansetron HCl 4 mg 06/29/25 03:35 Ondansetron Inj 4 Mg/2 Ml Vial IV PUSH Q4H PRN Nausea Pantoprazole Sodium 40 mg 06/29/25 13:00 07/01/25 09:43 Pantoprazole 40 Mg Tablet PO 40 mg QAM GIOVANNY Administration Rifampin 600 mg 06/30/25 15:35 07/01/25 06:17 Rifampin 300 Mg Capsule PO 600 mg DAILY@0600 GIOVANNY Administration Sertraline HCl 50 mg 06/29/25 13:00 07/01/25 09:43 Sertraline Hcl 50 Mg Tablet PO 50 mg DAILY GIOVANNY Administration Tamsulosin HCl 0.4 mg 06/29/25 10:15 07/01/25 09:43 Tamsulosin Hcl 0.4 Mg Capsule PO 0.4 mg BID GIOVANNY Administration Tobramycin/Dexamethasone 1 drop 06/29/25 13:00 07/01/25 09:43 Tobramycin/Dexamethasone Op 2.5 Ml Btl EACH EYE 1 drop QID GIOVANNY Administration Trazodone HCl 100 mg 06/29/25 21:00 06/30/25 21:35 Trazodone Hcl 50 Mg Tablet PO 100 mg HS GIOVANNY Administration Radiology Results: ITS Impressions Chest X-Ray 06/28/25 22:56 IMPRESSION: Increased right-sided pleural effusion when compared with previous study. Remainder of examination is unchanged. Chest CTA 06/29/25 05:32 Impression: No evidence of pulmonary embolus, aortic dissection, or aortic aneurysm. Patchy bilateral consolidation, suggestive of pneumonia and possible superimposed bibasilar atelectasis. There is significant worsening in the left upper lobe as compared to prior exam. Otherwise, remaining areas of airspace disease are similar to prior exam in the remainder of the lungs. Pulmonary edema not completely excluded, though felt to be somewhat less likely given the appearance and distribution of findings. Possible chronic scarring or atelectasis in the right middle lobe. Minimal pleural effusions. Labs Labs: Laboratory Results - last 24 hr 06/30/25 06/30/25 08:09 18:26 Procalcitonin 0.1 Urine Pneumococcal Ag Cancelled
--- NOTE | 2025-07-01 11:18 | PM.DS ---
DS: Admitting Diagnosis Discharge Date 07/01/2025 DS: Summary Hospital Course Reason for hospitalization: Copied from [facility] 06/29: Mr. Fuentes is an 80-year-old man with a history of COPD, SNEHA, recent admission for acute respiratory failure and transferred to [facility], who was recently discharged 2 days ago and presented to the hospital for acute respiratory failure with activity. He was recently admitted from 06/15 to 06/23 and transferred to [facility]. Pulmonary and ENT were consulted during admission. Pulmonary consulted, Dr. Vigil: SNEHA in sputum, multiple pulmonary infections requiring antibiotics on many date during 2023 and 2024. He saw [facility] on May 02 while inpatient at [facility], was started on current regimen without azithromycin due to hearing loss; he is on rifabutin 300 mg a day, ethambutol 1200 mg a day. SNEHA always requires 3 medications, so he will need something to replace azithromycin. Ina with the ID team called today, said that he needs ot be on azithromycin 250 mg a day decreased from 500 mg; this is lower due to the dose related hearing loss. He will continue rifabutin 300 mg and EMB 1200 mg. Follow up appointment at [facility] June 27. I restarted azithromycin 250 mg on Jun 23. Planning follow up with pulmonary. ENT evaluated and he was noted to have impacted cerumen. Recommended flonase BID for 2 months. Follow up with ENT clinic. He reports limited activity, mostly bed to commode at the outside hospital. When he got home he had shortness of breath with activity and was unable to recover easily. Family at bedside notes that his saturations have been decreasing gradually over the last few days. Recovery when ambulating is slow, often 15 minutes or more and patient has a lot of anxiety when this happens. EMS was called and he was placed on a nonrebreather, weaned back to 4L I called [facility] ID clinic and he has follow up August 08 11:00. Waiting for a call back to verify antibiotic stop date. Rifabutin is not available in the hospital. Hospital Course: Acute and chronic respiratory failure: Reported desatting on 5L O2 with ambulation at home. Desat to 80's with 4L initially during admission with ambulation. Pulmonary consulted and weaned to 1L at rest, 2L with sleepy and 4L with activity. --Wean O2 for sats >90-92% --Had a vest previously, chest PT BID at facility if possible per pulmonary recommendations Chronic obstructive pulmonary disease: Home meds: Bevespi 9-4.8mcg HFA inhaler, Breztri 160-9-4.8 HFA q12, Albuterol HFA prn, neb solution --s/p solumedrol 125 x1, Prednisone x1, then discontinued since no wheezing --Substituted Trelegy for home inhalers, pulmonary recommended discontinuing inhaled and oral steroids with SNEHA --Reports he has a nebulizer machine at home, does his own breathing treatments when needed Stopped Brextra. Continue Bevespi and albuterol prn for discharge NSVT (nonsustained ventricular tachycardia): 14 beat run NSVT AM 06/29. Asymptomatic. Occasional 3 beat run or PVC's otherwise. Electrolytes normal. --Continued metoprolol 50mg daily -- BMP in a week SNEHA (mycobacterium avium-intracellulare): Home meds: Ethambutol 1200mg daily, Rifabutin 150mg daily, Azithomycin 500 reduced to 250mg daily for hearing changes. Prior follow up with [facility] ID 06/27 had been rescheduled. Now planning follow up in July. --Azithromycin 250mg daily --Does not have rifabutin with him. Sent a prescription to [facility] if able to fill. Continuing 600mg rifampin until able to fill rifabutin. DC rifampin when rifabutin available. Patient's son planning to come in --Continue ethambutol --Called ID clinic and no stop date for antibiotics. Has follow up with [facility] clinic in July. HTN (hypertension): Home meds: Losartan 25, Furosemide 40mg daily, Metoprolol 50 q24 --Held losartan for mild SANDI --Lasix daily as tolerated, follow creatinine --Continue metoprolol Goals of care, counseling/discussion: DNR/DNI No intubation or CPR Also discussed with patient's son SANDI (acute kidney injury): Creatinine 1.4, up from baseline 0.92. Back to 1.1 --Held losartan --Resume lasix in AM Chronic pain: Home meds: Morphine ER 30mg q12 --Continue home morphine dose --Tylenol prn Time Spent with Patient Time attestation: Total time spent providing and/or coordinating discharge services: DS: Data Data Completed and Pending Labs on day of discharge: Labs from last 24 hours 06/30/25 06/30/25 18:26 08:09 Procalcitonin 0.1 Urine Pneumococcal Ag Cancelled Preliminary micro results at discharge 06/29/25 00:41 Blood Culture - Preliminary Blood 06/29/25 00:58 Blood Culture - Preliminary Blood Discharge Plan Discharge Attending physician on discharge: Mita Gaytan Consulting providers: Mita Gaytan; Salas Gottlieb Discharging Clinician: Mita Gaytan Anticipated Discharge Date/Time: 07/01/25 12:55 Patient Disposition: SNF Activity: march shower Diet: regular Discharge Instructions: Follow up with [facility] Infectious disease in July as scheduled, Follow up with Pulmonary Rifampin substitute for Rifabutin. When rifabutin is available from pharmacy (likely 07/03) will stop rifampin Continue oxygen, titrate for sats >90- percent 1 L O2 at rest, 2 L at night. He needs 4 L with activity. Continue stretching for neck pain/headaches. Also continuing baclofen at bedtime. Patient Instructions: Heart Failure (GEN) Patient Language: Belarusian Stand Alone Forms: General Discharge Information Follow-up/Referrals: Rogelio Moeller DO [Primary Care Provider] - 2 Weeks Discharge Medications: New azithromycin [Zithromax] 250 mg Tablet 250 mg PO DAILY Qty: 36 0RF rifampin 300 mg Capsule 600 mg PO DAILY@0600 2 Days Qty: 1 0RF guaifenesin [Mucus Relief ER] 600 mg Tablet Extended Release 12hr 1,200 mg PO Q12HR Qty: 60 0RF acetylcysteine 200 mg/mL (20 %) Solution 200 mg inhalation Q6HRT Qty: 180 0RF ipratropium-albuterol 0.5 mg-3 mg(2.5 mg base)/3 mL Solution For Nebulization 3 ml inhalation Q6HRT Qty: 180 0RF baclofen 10 mg Tablet 10 mg PO HS Qty: 30 0RF benzonatate 100 mg Capsule 200 mg PO TID PRN (Reason: Cough) Qty: 30 0RF Continued acetaminophen [Tylenol Extra Strength] 500 mg tablet 1,000 mg PO Q6H PRN (Reason: Pain) (DME) nebulizer and compressor Device See Rx Instructions .Route Qty: 1 0RF Rx Instructions: As directed (DME) nebulizer accessories Kit See Rx Instructions .Route Qty: 1 0RF Rx Instructions: As directed Bevespi Aerosphere 9-4.8 mcg HFA aerosol inhaler 2 puff inhalation BID Qty: 10.7 0RF ethambutol 400 mg tablet 1,200 mg PO DAILY losartan 25 mg tablet 25 mg PO DAILY tamsulosin 0.4 mg capsule 0.4 mg PO BID furosemide 20 mg tablet 40 mg PO DAILY esomeprazole magnesium 20 mg capsule,delayed release(DR/EC) 40 mg PO DAILY rifabutin 150 mg capsule 300 mg PO DAILY Qty: 60 3RF Patient Comments: take for 21 days, started on 06/08/25 morphine 30 mg tablet extended release 30 mg PO Q12H PRN (Reason: pain) 3 Days Qty: 6 0RF aspirin 81 mg Tablet,Delayed Release (Dr/Ec) 81 mg PO DAILY Qty: 90 0RF fenofibrate 160 mg tablet 160 mg PO DAILY Qty: 90 2RF Linzess 290 mcg capsule See Rx Instructions .ROUTE .COMPLEX Qty: 90 3RF Dose Instruction: TAKE 1 CAPSULE BY MOUTH DAILY Rx Instructions: TAKE 1 CAPSULE BY MOUTH DAILY albuterol sulfate 90 mcg/actuation HFA aerosol inhaler 2 puff INHALATION Q4H PRN (Reason: Shortness Of Breath Or Wheezing) Qty: 8.5 5RF nitroglycerin 0.4 mg tablet, sublingual 0.4 mg sublingual Q5M PRN (Reason: chest pain) Qty: 25 3RF Rx Instructions: do not exceed 3 doses per episode albuterol sulfate 2.5 mg /3 mL (0.083 %) solution for nebulization 2.5 mg inhalation Q4H PRN (Reason: shortness of breath or wheezing) Qty: 90 3RF bupropion HCl 150 mg tablet sustained-release 12 hr 150 mg PO BID Qty: 180 2RF metoprolol succinate 50 mg tablet extended release 24 hr 50 mg PO HS Qty: 90 1RF lorazepam 0.5 mg tablet 0.5 mg PO BID PRN (Reason: anxiety) Qty: 60 3RF tobramycin-dexamethasone 0.3-0.1 % drops,suspension 1 drp EACH EYE QID Qty: 10 0RF sulindac 200 mg tablet 200 mg PO BID Qty: 180 1RF atorvastatin 80 mg tablet 80 mg PO DAILY Qty: 90 1RF sertraline 50 mg tablet 50 mg PO DAILY Qty: 90 3RF hydroxyzine HCl 25 mg tablet 25 mg PO QID PRN (Reason: anxiety) Qty: 50 2RF trazodone 100 mg tablet 100 mg PO HS Qty: 90 1RF Changed baclofen 10 mg tablet 5 mg PO TID PRN (Reason: muscle spasm) Qty: 30 0RF Discontinued Breztri Aerosphere 160-9-4.8 mcg/actuation HFA aerosol inhaler 2 inh INHALATION .q12hr benzonatate 200 mg capsule See Rx Instructions .ROUTE .COMPLEX Qty: 90 0RF Dose Instruction: TAKE 1 CAPSULE BY MOUTH THREE TIMES DAILY NEEDED FOR COUGH Rx Instructions: TAKE 1 CAPSULE BY MOUTH THREE TIMES DAILY NEEDED FOR COUGH Date of admission: 06/30/25 12:20 Primary Care Provider: Rogelio Moeller Admitting Provider: Delvin Rivera Attending physician on admission: Delvin Rivera Condition: Improved
[2025-07-01] MEDS: BACLOFEN 5 MG TABLET PO ×2 (12:26→16:23)
[2025-07-01] MEDS: ONDANSETRON INJ 4 MG/2 ML VIAL IV PUSH (12:26)
--- NOTE | 2025-07-01 13:45 | PM.IMPN ---
Progress Note: A&P Assessment and Plan (1) Acute and chronic respiratory failure: Code(s): J96.20 - Acute and chronic respiratory failure, unspecified whether with hypoxia or hypercapnia Status: Resolved Assessment and Plan: On 1L O2 today. Reports desats on 5L O2 with ambulation at home. Desat to 80's with 4L today with ambulation. Needing 2L at rest --Wean O2 for sats >92% --Had a vest previously, resume per pulmonary recommendations --Appreciate Pulmonary recommendations --May benefit from pulmonary rehab (2) COPD exacerbation: Code(s): J44.1 - Chronic obstructive pulmonary disease with (acute) exacerbation Status: Acute Assessment and Plan: Home meds: Bevespi 9-4.8mcg HFA inhaler, Breztri 160-9-4.8 HFA q12, Albuterol HFA prn, neb solution --s/p solumedrol 125 x1, Prednisone x1, then discontinued --Substituted Trelegy for home inhalers --Reports he has a nebulizer machine at home, does his own breathing treatments when needed --Pulmonary consulted, appreciate recommendations (3) NSVT (nonsustained ventricular tachycardia): Code(s): I47.29 - Other ventricular tachycardia Status: Acute Assessment and Plan: 14 beat run NSVT AM 06/29. Asymptomatic. 3 beats overnight --Continue metoprolol 50mg daily --Monitoring on tele --Follow electrolytes (4) SNEHA (mycobacterium avium-intracellulare): Code(s): A31.0 - Pulmonary mycobacterial infection Status: Acute Assessment and Plan: Home meds: Ethambutol 1200mg daily, Rifabutin 150mg daily, Azithomycin 500 reduced to 250mg daily for hearing changes --Prior follow up with [facility] 06/27 had been scheduled. Coordinate next appointment --Azithromycin 250mg daily --Does not have rifabutin with him. Sent a prescription to [place] if able to fill --Continue ethambutol --Called ID clinic and no stop date for antibiotics. (5) HTN (hypertension): Qualifiers: Hypertension type: primary hypertension Qualified Code(s): I10 - Essential (primary) hypertension Code(s): I10 - Essential (primary) hypertension Status: Chronic Assessment and Plan: Home meds: Losartan 25, Furosemide 40mg daily, Metoprolol 50 q24 --Hold losartan for mild SANDI --Lasix daily as tolerated, follow creatinine --Continue metoprolol (6) Goals of care, counseling/discussion: Code(s): Z71.89 - Other specified counseling Status: Acute Assessment and Plan: DNR/DNI No intubation or CPR Also discussed with patient's son (7) SANDI (acute kidney injury): Code(s): N17.9 - Acute kidney failure, unspecified Status: Acute Assessment and Plan: Creatinine 1.4, up from baseline 0.92. Back to 1.1 --Hold losartan --Likely resume lasix in AM (8) Chronic pain: Code(s): G89.29 - Other chronic pain Status: Acute Assessment and Plan: Home meds: Morphine ER 30mg q12 --Continue home morphine dose --Tylenol prn Time Spent With Patient Time: 54 minutes Subjective Date/time seen: 07/01/25 13:45 Exam Narrative: General - Awake and alert. No acute distress Eyes - PERRLA, EOM intact ENT - No thrush, No erythema Neck - No noticeable or palpable swelling Lymph Nodes - No lymphadenopathy Cardiovascular - RRR no m/r/g, no JVD Lungs: Crackles all lung short, No wheezing, use of accessory muscles Skin - Skin warm and dry, no wounds or rashes Abdomen - Normal bowel sounds, abdomen soft and nontender Extremities - No edema, cyanosis or clubbing Musculoskeletal - 5/5 strength, normal range of motion, no swollen or erythematous joints. Neurological ? Alert and oriented x 3, CN 2-12 grossly intact. Psych: Normal mood and affect Objective Data Vital Signs Vital Signs: Vital Signs - 24 hr 06/30/25 14:02 06/30/25 16:00 06/30/25 19:53 Temperature 97.1 F L Pulse Rate 64 58 L 71 Respiratory Rate 19 18 Blood Pressure 114/40 L Pulse Oximetry 96 Oxygen Delivery Oxygen Flow Rate 06/30/25 19:55 06/30/25 20:05 06/30/25 20:06 Temperature Pulse Rate 74 Respiratory Rate 16 Blood Pressure Pulse Oximetry 96 96 Oxygen Delivery Nasal Cannula Nasal Cannula Oxygen Flow Rate 3 3 06/30/25 20:10 06/30/25 21:26 06/30/25 21:34 Temperature 98.7 F Pulse Rate 77 80 81 Respiratory Rate 20 Blood Pressure 139/50 L Pulse Oximetry 96 Oxygen Delivery Oxygen Flow Rate 07/01/25 00:00 07/01/25 02:08 07/01/25 02:20 Temperature Pulse Rate 76 70 77 Respiratory Rate 16 18 Blood Pressure Pulse Oximetry Oxygen Delivery Oxygen Flow Rate 07/01/25 04:00 07/01/25 06:00 07/01/25 08:00 Temperature 97.8 F Pulse Rate 75 71 Respiratory Rate 18 Blood Pressure 164/60 H Pulse Oximetry 97 97 Oxygen Delivery Nasal Cannula Oxygen Flow Rate 3 07/01/25 08:00 07/01/25 08:49 07/01/25 08:57 Temperature Pulse Rate 70 74 70 Respiratory Rate 16 16 Blood Pressure Pulse Oximetry Oxygen Delivery Oxygen Flow Rate 07/01/25 13:18 Temperature Pulse Rate 74 Respiratory Rate 18 Blood Pressure Pulse Oximetry Oxygen Delivery Oxygen Flow Rate Intake/Output Intake/Output: Intake & Output 06/28/25 06/29/25 06/30/25 07/01/25 23:59 23:59 23:59 23:59 Intake Total 500 2070 1270 240 Output Total 1050 1600 1500 Balance 500 1223 -002 -0638 Meds/Results Medications: Active Medications Generic Name Dose Route Start Last Admin Trade Name Freq PRN Reason Stop Dose Admin Acetaminophen 1,000 mg 06/29/25 12:36 07/01/25 06:28 Acetaminophen 500 Mg Tablet PO 1,000 mg Q6H PRN Administration Pain Acetylcysteine 200 mg 06/30/25 14:00 07/01/25 13:14 Acetylcysteine 20% Inhal Soln 800 Mg/4 Ml Vial INHALATION 200 mg Q6HRT GIOVANNY Administration Albuterol 2.5 mg 06/29/25 12:36 06/30/25 19:53 Albuterol Sulfate Neb 2.5 Mg/3 Ml Inh INHALATION 2.5 mg Q4H PRN Administration shortness of breath or wheezing Albuterol 2 puff 06/29/25 12:36 Albuterol Sulfate (*Sp) Aerosol 1 Puff INHALATION Q4H PRN Shortness Of Breath Or Wheezing Albuterol/Ipratropium 3 ml 06/29/25 08:00 07/01/25 13:13 Ipratropium 0.5 Mg/Albuterol Sulfate 2.5 Mg Ampul.Neb 3 Ml INHALATION 3 ml Q6HRT GIOAVNNY Administration Aspirin 81 mg 06/29/25 13:00 07/01/25 09:43 Aspirin 81 Mg Enteric Tablet PO 81 mg DAILY GIOVANNY Administration Atorvastatin Calcium 80 mg 06/29/25 13:00 07/01/25 09:43 Atorvastatin 40 Mg Tablet PO 80 mg DAILY GIOVANNY Administration Azithromycin 250 mg 06/30/25 09:00 07/01/25 09:43 Azithromycin 250 Mg Tablet PO 07/03/25 09:01 250 mg DAILY GIOVANNY Administration Baclofen 5 mg 07/01/25 11:20 07/01/25 12:26 Baclofen 5 Mg Tablet PO 5 mg BID GIOVANNY Administration Benzonatate 200 mg 06/29/25 13:00 Benzonatate 100 Mg Capsule PO TID PRN Cough Bupropion HCl 150 mg 06/29/25 17:00 07/01/25 09:43 Bupropion Hcl Sr (12 Hr) 150 Mg Tab PO 150 mg BID GIOVANNY Administration Enoxaparin Sodium 40 mg 06/30/25 09:00 07/01/25 09:45 Enoxaparin 40 Mg/0.4 Ml Syringe SUB-Q 40 mg DAILY GIOVANNY Administration Ethambutol HCl 1,200 mg 06/29/25 10:15 07/01/25 09:43 Ethambutol Hcl 400 Mg Tablet PO 1,200 mg DAILY GIOVANNY Administration Fenofibrate 145 mg 06/29/25 13:00 07/01/25 09:43 Fenofibrate Nanocrystallized 145 Mg Tablet PO 145 mg QAM GIOVANNY Administration Furosemide 40 mg 06/29/25 13:00 06/29/25 14:45 Furosemide 40 Mg Tablet PO 40 mg DAILY GIOVANNY Administration Guaifenesin 1,200 mg 06/30/25 11:55 07/01/25 09:43 Guaifenesin 12 Hr 600 Mg Tabcr PO 1,200 mg Q12HR GIOVANNY Administration Hydroxyzine HCl 25 mg 06/29/25 12:36 Hydroxyzine Hcl 25 Mg Tablet PO QID PRN anxiety Linaclotide 290 mcg 06/30/25 06:30 07/01/25 06:17 Linaclotide 145 Mcg Capsule PO 290 mcg DAILY@0630 GIOVANNY Administration Lorazepam 0.5 mg 06/29/25 12:35 06/29/25 14:44 Lorazepam (*Crx) 0.5 Mg Tablet PO 0.5 mg BID PRN Administration anxiety Losartan Potassium 25 mg 07/01/25 09:00 07/01/25 09:43 Losartan Potassium 25 Mg Tablet PO 25 mg DAILY GIOVANNY Administration Metoprolol Succinate 50 mg 06/29/25 21:00 06/30/25 21:34 Metoprolol Succinate Ext Rel 50 Mg Tabcr PO 50 mg HS GIOVANNY Administration Morphine Sulfate 30 mg 06/29/25 12:40 06/29/25 14:44 Morphine Sulfate (*Crx) 30 Mg Tabcr PO 30 mg Q12H PRN Administration pain Nitroglycerin 0.4 mg 06/29/25 12:36 Nitroglycerin Sl 0.4 Mg Tablet SUBLINGUAL Q5M PRN chest pain Non-Formulary Medication 200 mg 06/29/25 17:00 07/01/25 09:43 Sulindac BY MOUTH 07/29/25 16:59 200 mg BID GIOVANNY Administration Ondansetron HCl 4 mg 06/29/25 03:35 07/01/25 12:26 Ondansetron Inj 4 Mg/2 Ml Vial IV PUSH 4 mg Q4H PRN Administration Nausea Pantoprazole Sodium 40 mg 06/29/25 13:00 07/01/25 09:43 Pantoprazole 40 Mg Tablet PO 40 mg QAM GIOVANNY Administration Rifampin 600 mg 06/30/25 15:35 07/01/25 06:17 Rifampin 300 Mg Capsule PO 600 mg DAILY@0600 GIOVANNY Administration Sertraline HCl 50 mg 06/29/25 13:00 07/01/25 09:43 Sertraline Hcl 50 Mg Tablet PO 50 mg DAILY GIOVANNY Administration Tamsulosin HCl 0.4 mg 06/29/25 10:15 07/01/25 09:43 Tamsulosin Hcl 0.4 Mg Capsule PO 0.4 mg BID GIOVANNY Administration Tobramycin/Dexamethasone 1 drop 06/29/25 13:00 07/01/25 12:26 Tobramycin/Dexamethasone Op 2.5 Ml Btl EACH EYE 1 drop QID GIOVANNY Administration Trazodone HCl 100 mg 06/29/25 21:00 06/30/25 21:35 Trazodone Hcl 50 Mg Tablet PO 100 mg HS GIOVANNY Administration Radiology Results: ITS Impressions Chest X-Ray 06/28/25 22:56 IMPRESSION: Increased right-sided pleural effusion when compared with previous study. Remainder of examination is unchanged. Chest CTA 06/29/25 05:32 Impression: No evidence of pulmonary embolus, aortic dissection, or aortic aneurysm. Patchy bilateral consolidation, suggestive of pneumonia and possible superimposed bibasilar atelectasis. There is significant worsening in the left upper lobe as compared to prior exam. Otherwise, remaining areas of airspace disease are similar to prior exam in the remainder of the lungs. Pulmonary edema not completely excluded, though felt to be somewhat less likely given the appearance and distribution of findings. Possible chronic scarring or atelectasis in the right middle lobe. Minimal pleural effusions. Labs Labs: Laboratory Results - last 24 hr 06/30/25 18:26 Urine Pneumococcal Ag Cancelled Quality VTE Prophylaxis VTE prophylaxis: pharmacologic ordered Hospitalist MIPS Advance Care Plan I have confirmed that the patient's Advanced Care Plan is present, code status is documented, or surrogate decision maker is listed in patient medical record.: Yes Medication Reconciliation I have utilized all available resources to obtain, update and review the patients current medications (includes all prescriptions, OTC, herbals, cannabis, and nutritional supplements).: Yes
[2025-07-01] MEDS: MORPHINE SULFATE (*CRX) 30 MG TABCR PO (16:23)
[2025-07-01] MEDS: METOPROLOL SUCCINATE EXT REL 50 MG TABCR PO (20:34)
[2025-07-01] MEDS: BACLOFEN 10 MG TABLET PO (20:34)
[2025-07-02] VITALS (12 sets, daily range): BP systolic 107–148; BP diastolic 60–76; PULSE 63–80; RESP 18–20; TEMP 36.1–36.8; O2SAT 93–97
[2025-07-02] MEDS: LINACLOTIDE 145 MCG CAPSULE 290 MCG PO (06:04)
[2025-07-02 06:49] LABS: Anion Gap 5 mmol/L (4-12); Blood Urea Nitrogen 21 mg/dL (9-20); Calcium 9.5 mg/dL (8.4-10.2); Carbon Dioxide 31 mmol/L (22-30); Chloride 98 mmol/L (98-107); Estimated CRCL calculation 61 ml/min; Estimated Glomerular Filt Rate > 60; Glucose 83 mg/dL (65-110); Magnesium 1.9 mg/dL (1.6-2.3); Potassium 4.4 mmol/L (3.4-5.0); Sodium 134 mmol/L (137-145)
[2025-07-02] MEDS: ACETYLCYSTEINE 20% INHAL SOLN 800 MG/4 ML VIAL 200 MG INHALATION ×2 (07:52→14:07)
[2025-07-02] MEDS: IPRATROPIUM 0.5 MG/ALBUTEROL SULFATE 2.5 MG AMPUL.NEB 3 ML INHALATION ×2 (07:53→14:06)
[2025-07-02] MEDS: SERTRALINE HCL 50 MG TABLET PO (09:45)
[2025-07-02] MEDS: PANTOPRAZOLE 40 MG TABLET PO (09:45)
[2025-07-02] MEDS: BACLOFEN 5 MG TABLET PO (09:45)
[2025-07-02] MEDS: ASPIRIN 81 MG ENTERIC TABLET PO (09:45)
[2025-07-02] MEDS: ATORVASTATIN 40 MG TABLET 80 MG PO (09:45)
[2025-07-02] MEDS: TAMSULOSIN HCL 0.4 MG CAPSULE PO (09:45)
[2025-07-02] MEDS: LOSARTAN POTASSIUM 25 MG TABLET PO (09:45)
[2025-07-02] MEDS: FENOFIBRATE NANOCRYSTALLIZED 145 MG TABLET PO (09:45)
[2025-07-02] MEDS: buPROPion HCL SR (12 HR) 150 MG TAB PO (09:45)
[2025-07-02] MEDS: AZITHROMYCIN 250 MG TABLET PO (09:45)
[2025-07-02] MEDS: ETHAMBUTOL HCL 400 MG TABLET 1200 MG PO (09:45)
[2025-07-02] MEDS: guaiFENesin 12 HR 600 MG TABCR 1200 MG PO (09:45)
[2025-07-02] MEDS: SULINDAC 200 MG BY MOUTH (09:46)
[2025-07-02] MEDS: [UNRECOGNIZED DRUG - OTHER] BY MOUTH (09:46)
[2025-07-02] MEDS: MORPHINE SULFATE (*CRX) 30 MG TABCR PO (09:49)
[2025-07-02] MEDS: ENOXAPARIN 40 MG/0.4 ML SYRINGE SUB-Q (09:51)
--- NOTE | 2025-07-02 09:53 | P.PNPL_ITS ---
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 patient started on rifabutin 300 q.day, azithromycin 500 mg q.day, ethambutol 1200 mg q.day on 06/05/2025. Patient with a history of SNEHA in sputum, multiple pulmonary infections requiring antibiotics on 02/25/2024, 04/10/2024, 09/08/2024, 10/04/2024, 11/04/2024, 11/20/2024, 12/02/2024, 03/02/2025, 04/25/2025, 05/12/2025, and 05/22/2025. Other comorbidities include COPD and history of fluid overload. Admitted to the hospital on 06/15/2025 with decreased hearing and azithromycin decreased from 500 to 250 mg p.o. q.day. 06/30/2025: Patient presents with weakness, fatigue, hypoxic respiratory failure. he denies fever, chills, rigors, change in his cough, change in his phlegm which is minimal and no hemoptysis. CT scan compared to 06/01/2025 with new consolidative infiltrate anterior segment of the left upper lobe and worse consolidative infiltrate superior segment of the left lower lobe with no change in his right upper lobe, right middle lobe and right lower lobe infiltrates. Currently the patient is on 2 L nasal cannula with saturations 100%. Oxygenation is better than baseline which is usually 4 L at home. On detailed review of the patient's pills and pill bottles at home with sonMarco, over the phone ethambutol was not seen. Rifabutin was emptied. Patient called the clinic on 06/27/2025 stating they sent him home from the hospital on 06/23/2025 without azithromycin and I prescribed azithromycin 250 a day for 30 days and they filled the prescription for 5 pills and he took this on 06/27 and 06/28/25. Plan: Etiology of new infiltrates are likely continued MAC lung disease due to noncompliance with ethambutol, rifabutin and azithromycin. Patient and son are very confused about the medicines. Will continue ethambutol 1200 mg p.o. q.day, rifabutin 300 mg p.o. q.day and azithromycin 250 mg p.o. q.day. The hospital does not have rifabutin. I have spoken to Marco, son, who will drive to the pharmacy to picking supervisor this prescription of the rifabutin and bring it to the hospital so the patient can take this as a home medicine. Later in day bedside nurse informed me that rifabutin is not available at the pharmacy and cannot be delivered until 07/03/2025. Discussed with ID pharmacist and will place the patient on rifampin 600 mg p.o. q.day 1st dose today. 07/01/25: Patient says that he could not sleep because of a headache. Tells me he is breathing normal. His cough is normal. He has a little bit of clear to green phlegm but no hemoptysis. He is afebrile. He diuresed 330 mL yesterday. I reviewed a large grocery bag of his home medications and there was no et hambutol, rifabutin or azithromycin. He did have 4 separate weekly pill chamber containers and 2 and half of them were filled with pills so his medicines may be included in these containers and he may have been taking them. There was a new prescription picked up yesterday with azithromycin 250 mg p.o. q.day with a total of 30 pills. He has been noncompliant since leaving the hospital on 06/23/2025. Plan: Continue ethambutol 1200 mg p.o. q.day, azithromycin 250 mg p.o. q.day, rifampin 600 mg p.o. q.day all day 2. 07/01/25: Patient says that he He slept good last night. States that his breathing is normal, his cough is normal, he has minimal phlegm production and no hemoptysis. He is afebrile. When I enter the room he was on 2.5 L nasal cannula saturations 98% and I decreased him to 2 L and her saturations were 95%. He diuresed 1.1 L yesterday and cumulative he is -1 L since admission. He has had no diarrhea. Plan: Continue ethambutol 1200 mg p.o. q.day, azithromycin 250 mg p.o. q.day, rifampin 600 mg p.o. q.day all day 3. Discussed with Marco on speaker phone, Mita Gaytan, will follow with you. (2) Chronic hypoxic respiratory failure, on home oxygen therapy: Code(s): J96.11 - Chronic respiratory failure with hypoxia; Z99.81 - Dependence on supplemental oxygen Status: Acute Assessment and Plan: 06/30/25: on discharge from the hospital 06/23/2024 patient was using 3-4 L at rest. At home patient has been using 4 L at rest with home pulse oximetry 91. Recently 4 L with activity saturations were decreasing to 85%. at home he had been wearing 4 L with sleep. Plan: Goal saturation 90-94. Titer oxygen accordingly. 07/01/25: When I enter the room he was on 3 L nasal cannula with saturations 98%. I sequentially decreased him to room air and his saturations were 91%. I walked the patient with his walker on 4 L nasal cannula to the door and back a total of 40 ft and his saturations remained 94 when ambulating and sitting on the side of the bed after he ambulated saturations were 93%. He had dyspnea on exertion and stated at home the most he could walk was to the end of his bed. Patient brought his home pulse oximeter in and the back casing was missing. When correlated with 2 different hospital pulse oximeter is his pulse oximeter was 2 percentage points lower than the hospitals. Plan: goal saturation 90-94%. When he ambulates he should wear 4 L. I will perform an overnight oximetry on 2 L. patient's current home pulse oximeter appears to be broken and was reading 2 percentage points lower than the hospitals. The patient tells me that they have ordered a new pulse oximeter and I have told him once it arrives to bring it into the hospital so that we can verify it is working properly. 07/01/25: When I enter the room he was on 2.5 L nasal cannula saturations 98% and I decreased him to 2 L and her saturations were 95%. He diuresed 1.1 L yesterday and cumulative he is -1 L since admission. Patient had an overnight oximetry on 2 L nasal cannula with recording duration of 8 hours and 11 minutes. Average saturation 95%. Low saturation 90%. Time with saturation less than or equal to 88% was 0 minutes. Oxygen desaturation index 2.3. I walked the patient with his walker on 4 L nasal cannula to the door and back twice for total of 80 ft and his saturations remained 90 when ambulating. I placed him on room air after this ambulation and her saturations went to 89% and I put him on 1 L nasal cannula. Plan: Goal saturation 90-94%. Currently patient on 1 L. 2 L at night it provides adequate oxygen. He needs 4 L with activity. (3) Chronic obstructive pulmonary disease: Code(s): J44.9 - Chronic obstructive pulmonary disease, unspecified Status: Acute Assessment and Plan: Gold grade 2 group E COPD Regarding his COPD, patient with 60 pack year tobacco use quit in 2019, alpha 1 anti trypsin genotype MM, [id number] apical predominant centrilobular and paraseptal emphysema on his CT scan from 10/11/2021. Of note he has had COVID pneumonia on 09/10/2021 and Pseudomonas aeruginosa on 10/10/2021 and 04/26/2025 and 06/16/2025. His PFTs from 12/16/2023 show mild obstruction with FEV1 68%, ratio 61%. No bronchodilator response, hyperinflation, severely decreased DLCO the remains mildly decreased when adjusted for alveolar volume. Compared to 01/01/2022 had been a significant decrease in the FVC, FEV1, total lung capacity, functional residual capacity and diffusing capacity. When admitted for pneumonia had an ABG on 02/25/2024 on 3 L nasal cannula 7.44/36/67. 10/04/2024: ABG on 2 L 7.43/41/75. 06/29/2025: 2 L ABG 7.37/49/113. 10/04/2024: White blood cell count 11.1 eosinophils 3.2%=355/uL. 04/09/2024 white blood cell count 11.1, eosinophils 0.4%=44/uL. 06/28/2025 white blood cell count 14.8, 1.8%=266 uL. Tested positive for COVID 11/13/2023 treated with Paxlovid, rebound symptoms treated with clarithromycin and doxycycline. Hospitalize 02/25/2024 for pneumonia with sputum showing Haemophilus treated with steroids. Hospitalized 04/10/24 to 04/12/24 for COPD exacerbation treated with prednisone and azithromycin. 09/08/2024 cold symptoms, treated with doxycycline and prednisone taper. 10/04/2024 ED visit for shortness of breath treated for fluid overload and COPD exacerbation with prednisone and Augmentin. 11/04 admitted to [facility] with congestive heart failure and pneumonia no evidence of COPD exacerbation. 11/20 admitted to [facility] for shortness of breath, fluid overload and possible pneumonia. 12/02/2024 through 12/06/2024 admitted to [facility] treated for pneumonia. sputum from 12/17/2024 grew out Alcaligenes xylosoxidans sensitive to meropenem and Septra, intermediate to Zosyn, resistant to ceftaz, levofloxacin and imipenem. 03/02/2025 patient with increased phlegm production and treated for bronchitis with Septra DS 2 tablets twice a day x 7 days. 06/30/25: Patient denies any recent change in his phlegm production, phlegm volume, change in phlegm color. he has new infiltrates on his x-ray but no wheezing. Plan: I do not believe he is having a COPD exacerbation and will discontinue all inhaled and systemic steroids as he has MAC lung disease. I will continue DuoNebs q.6 hours, Mucomyst nebulizers q.6 hours, guaifenesin 1200 mg p.o. b.i.d., vest therapy b.i.d., Cornet flutter valve q.4 hours while awake to aid in expectoration. 07/01/25: breathing at his baseline. Plan: Continue DuoNebs q.6 hours, Mucomyst nebulizers q.6 hours, guaifenesin 1200 mg p.o. b.i.d., vest therapy b.i.d., Cornet flutter valve q.4 hours while awake to aid in expectoration. 07/02/25: breathing at his baseline. Plan: Continue DuoNebs q.6 hours, Mucomyst nebulizers q.6 hours, guaifenesin 1200 mg p.o. b.i.d., vest therapy b.i.d., Cornet flutter valve q.4 hours while awake to aid in expectoration. (4) Physical deconditioning: Code(s): R53.81 - Other malaise Status: Inactive Assessment and Plan: At home the patient could only walk to the end of his bed. 06/30/25: Took 2 steps with physical therapy 07/01/25: I walked the patient with his walker on 4 L nasal cannula to the door and back a total of 40 ft and his saturations remained 94 when ambulating and sitting on the side of the bed after he ambulated saturations were 93%. He had dyspnea on exertion and stated at home the most he could walk was to the end of his bed. 07/02/25: I walked the patient with his walker on 4 L nasal cannula to the door and back twice for total of 80 ft and his saturations remained 90 when ambulating. I placed him on room air after this ambulation and her saturations went to 89% and I put him on 1 L nasal cannula. Subjective Date/time seen: 07/02/25 09:53 Interval history: 06/30/2025: This is a new pulmonary consult for COPD with pulmonary MAC 80-year-old with a history of coronary artery disease status post non [facility] [place] 08/2019, ischemic cardiomyopathy, hypertension, hyperlipidemia, Gold grade 2 group B COPD on home oxygen 4 L at rest, with activity and with sleep and MAC lung disease (started on ribabutin, azithromycin and ethambutol on 06/05/2025) patient is followed in the Pulmonary Clinic. He has required antibiotics for lung infections on: 02/25/2024, 04/10/2024, 09/08/2024, 10/04/2024, 11/04/2024, 11/20/2024, 12/02/2024, 03/02/2025, 04/25/2025, 05/12/2025, 05/22/2025, 05/30/2025 and 06/15/2025. Patient recently admitted to the hospital from 06/15/2025 to 06/23/2025 for sh ortness of breath and hypoxia. he was treated with Levaquin, pulmonary hygiene maneuvers and his azithromycin was decreased from 500 mg p.o. q.day to 250 mg p.o. q.day due to hearing decrease. Patient left the hospital on 06/23/2024 in no respiratory distress but he was weak and fatigued easily. I spoke to the son Marco today. The patient lives in Marco's house and tired sees him every day. The patient's daughter had been the primary caregiver but now Sim is the caregiver. The patient was in his usual state of health until 06/27/2025 when he was very tired and exhausted. 06/28/2025 was supposed to be the patient's 1st day for home health therapy but he was somewhat confused, sleep and not waking up during the day. His room air saturations on 4 L were 91%. He denied fever, chills, rigors, change in his cough, change in his phlegm or hemoptysis. With activity on 4 L patient saturation decreased to 85%. Patient remained somnolent and EMS was called. 06/28/25 Patient presented to the emergency room with blood pressure 111/47, heart rate 82, respirations 18, temperature 98?, non-rebreather mask 7 L saturation 97%. White blood cell count 14.8, creatinine 1.46, BUN 45, BNP 669. ABG on 2 L was 7.37/49/113. CT angiogram of the chest showed emphysema. New consolidative infiltrate anterior segment left upper lobe, worsening consolidation and infiltrate in the suit soup superior segment of the left lower lobe in no change in his chronic infiltrates right upper lobe, right middle lobe, right lower lobe and no change in his small right pleural effusion. Patient was given bronchodilators, Solu-Medrol 125, ceftriaxone and azithromycin admitted to the hospital. 06/29/2025: Admitted to the floor and placed on prednisone 40 mg p.o. q.day, azithromycin 250 a day, ethambutol 1200 mg p.o. q.day, and DuoNebs q.6 hour. patient was on 2 L nasal cannula in the morning with saturations 92. At 8:00 p.m. patient was on 3 L nasal cannula saturations 96%. 06/30/2025: Today the patient tells me he is breathing at his baseline. His son Sim saw him this morning and feels that he is breathing the same as he was when he left the hospital on 06/23/2025. His cough is at his baseline. He has minimal phlegm. He denies fever, chills, rigors, hemoptysis. when I enter the room he was on 4 L with saturations 98%. I decreased him to room air and his saturations were 89%. I placed him back on 2 L and his saturations were 100%. The patient walked 8 ft with physical therapy and she told me his saturations on 4 L decreased to 85%. His white blood cell count is 7.4, his creatinine is 1.10, he is afebrile. on detailed review of the patient's pills and pill bottles at home with Tod over the phone ethambutol was not seen. Rifabutin was emptied. Patient called the clinic on 06/27/2025 stating they sent him home from the hospital on 06/23/2025 without azithromycin and I prescribed azithromycin 250 a day for 30 days and they filled the prescription for 5 pills and he took this on 06/27 and 06/28/25. later in day bedside nurse informed me that rifabutin is not available at the pharmacy and cannot be delivered until 07/03/2025. Discussed with ID pharmacist and will place the patient on rifampin 600 mg p.o. q.day 1st dose today. 07/01/25: Patient says that he could not sleep because of a headache. Tells me he is breathing normal. His cough is normal. He has a little bit of clear to green phlegm but no hemoptysis. He is afebrile. He diuresed 330 mL yesterday. When I enter the room he was on 3 L nasal cannula with saturations 98%. I sequentially decreased him to room air and his saturations were 91%. I walked the patient with his walker on 4 L nasal cannula to the door and back a total of 40 ft and his saturations remained 94 when ambulating and sitting on the side of the bed after he ambulated saturations were 93%. He had dyspnea on exertion and stated at home the most he could walk was to the end of his bed. I reviewed a large grocery bag of his home medications and there was no ethambutol, rifabutin or azithromycin. There was a new prescription picked up yesterday with azithromycin 250 mg p.o. q.day with a total of 30 pills. Patient brought his home pulse oximeter in and the back casing was missing. When correlated with 2 different hospital pulse oximeter is his pulse oximeter was 2 percentage points lower than the hospitals. 8/9/25: Patient says that he He slept good last night. States that his breathing is normal, his cough is normal, he has minimal phlegm production and no hemoptysis. He is afebrile. When I enter the room he was on 2.5 L nasal cannula saturations 98% and I decreased him to 2 L and her saturations were 95%. He diuresed 1.1 L yesterday and cumulative he is -1 L since admission. Patient had an overnight oximetry on 2 L nasal cannula with recording duration of 8 hours and 11 minutes. Average saturation 95%. Low saturation 90%. Time with saturation less than or equal to 88% was 0 minutes. Oxygen desaturation index 2.3. I walked the patient with his walker on 4 L nasal cannula to the door and back twice for total of 80 ft and his saturations remained 90 when ambulating. I placed him on room air after this ambulation and her saturations went to 89% and I put him on 1 L nasal cannula. DATA (infectious disease): 06/23/25:. His sputum shows moderate growth of Pseudomonas aeruginosa (recurrent) and Lucai. Pseudomonas sensitive to amikacin, aztreonam, ceftazidime, cefepime, gentamicin, meropenem, Zosyn and tobramycin. Intermediate to ciprofloxacin and imipenem. Resistant to Levaquin. 12/15/2024 sputum with AFB verified on 01/14/25 and grew SNEHA on 03/03/25. Sensitivities 03/20/25. On 03/20/25 patient referred to [facility] with appointment scheduled for 05/02/2025. Sputum on 12/16/2024 with AFB verified on 01/20/25 and grew SNEHA on 02/01/25.?Sensitivities 03/28/25. 2024 admissions: * 05/30/2025 Rob admission shortness of breath; transferred to [facility] 06/04 to 06/07; discharged on Levaquin to continue until June 18; continue SNEHA meds * 05/12/2025, ER visit, shortness of breath, home. * 04/25/25 -04/28/25; admitted Rob respiratory distress, hypoxemia, transferred to [facility]; ID saw him 05/02/25; SNEHA; started Rx w azithromycin 500 mg/D, Rifabutin 300 mg/D, ethambutol 1200 mg/ day initial sputum with SNEHA was 12/16/2024 with AFB verified on 01/20/25 and grew SNEHA on 02/01/25.?Sensitivities 03/28/25. QuantiFERON gold was negative on 01/24/25. ORGANISM: MYCOBACTERIUM AVIUM COMPLEX AMIKACIN: 16 S mcg/mL AMIKACIN (LIPOSOMAL, INHALED): 16 S mcg/mL CIPROFLOXACIN: >8 mcg/mL CLARITHROMYCIN: 2 S mcg/mL CLOFAZIMINE: 0.25 mcg/mL DOXYCYCLINE: >8 mcg/mL LINEZOLID: 16 I mcg/mL MINOCYCLINE: >8 mcg/mL MOXIFLOXACIN: 4 R mcg/mL RIFABUTIN: 1 mcg/mL RIFAMPIN: >4 mcg/mL STREPTOMYCIN: >32 * This is a corrected result. * A prior result that was reported as final has been changed. 1. Mycobacterium avium complex M.I.C. RX --------- --- Rifampin AFB >4 S Streptomycin AFB R Amikacin AFB 16 S Moxifloxacin AFB R DATA (imaging and PFT): 06/29/2025: Clinical Indication: Hypoxia CT Scan of the Chest with Contrast: Technique: Contiguous sections were acquired throughout the chest after intravenous administration of 100 cc of Omnipaque 350. Dose reduction technique was used on this scan by utilizing automated exposure control and iterative reconstruction technique. The dose-length product (DLP) was 283.61 mGy-cm. COMPARISON: 06/01/2025 Findings: Multiple shotty/minimally enlarged mediastinal lymph nodes are present along the right paratracheal stripe and AP window region. There is no filling defect in the pulmonary arterial tree to suggest pulmonary embolus. There is no evidence of aortic dissection or aneurysm. No pericardial effusion. There are small bilateral pleural effusions. Bibasilar consolidation with air bronchograms is present, which could reflect atelectasis/pulmonary edema versus pneumonia. There is probable chronic scarring or interstitial change in the right middle lobe. There are patchy areas of consolidation the left upper lobe a nd right upper lobe, which could reflect additional or new versus pneumonia. There is mild to moderate emphysema.. Images through the upper abdomen reveal no abnormalities. Impression: No evidence of pulmonary embolus, aortic dissection, or aortic aneurysm. Patchy bilateral consolidation, suggestive of pneumonia and possible superimposed bibasilar atelectasis. There is significant worsening in the left upper lobe as compared to prior exam. Otherwise, remaining areas of airspace disease are similar to prior exam in the remainder of the lungs. Pulmonary edema not completely excluded, though felt to be somewhat less likely given the appearance and distribution of findings. Possible chronic scarring or atelectasis in the right middle lobe. Minimal pleural effusions. 05/12/25: EXAMINATION: CTA chest PE protocol DATE: 05/12/2025 14:25 INDICATION: Dyspnea. Elevated d-dimer. TECHNIQUE: Computed tomography (CT) pulmonary angiogram of the chest was performed with 100 mL Omnipaque-350 intravenous contrast. Additional 3D reconstructions utilizing coronal maximum intensity projection (MIP) were performed. Automated exposure control and iterative reconstruction technique were employed. The dose-length product was 310.42 mGy-cm. COMPARISON: 04/26/2025 FINDINGS: No pulmonary embolism. Mild emphysema. Bronchial wall thickening in the bilateral lower lobes with some frothy appearing mucous in the right bronchus intermedius and right lower lobar bronchi consistent with bronchitis. Unchanged small right pleural effusion is been some interval improvement in groundglass opacities and patchy consolidation in the right lower lobe consistent with improving pneumonia. There is unchanged region of peripheral round atelectasis in the posterior left lower lobe with associated architectural distortion and volume loss. Additional unchanged linear discoid atelectasis at the right middle lobe. Heart size is normal. Atherosclerotic coronary artery calcific location. No pericardial effusion. Thoracic aorta is normal in caliber with no dissection. Enlargement of the central pulmonary arteries consistent with pulmonary arterial hypertension. No pathologically enlarged thoracic lymphadenopathy. Moderate- sized sliding-type hiatal hernia. Multiple low-attenuation cysts scattered throughout the liver measuring up to 1.5 cm. There is also a 1.8 cm cyst at the upper pole the right kidney. Mild thoracic spondylosis with bridging osteophytes at multiple levels consistent with diffuse idiopathic skeletal hyperostosis (DISH). IMPRESSION: 1. No pulmonary embolism. 2. Decreasing consolidation in the right lower lobe consistent with improving pneumonia. 3. Unchanged small right pleural effusion. 4. Mild emphysema and enlargement of the central pulmonary arteries consistent with pulmonary arterial hypertension. 5. Moderate-sized sliding-type hiatal hernia. 04/26/2025: EXAMINATION: CTA chest PE protocol DATE: 04/26/2025 13:46 CDT INDICATION: Shortness of breath TECHNIQUE: Computed tomographic angiography (CTA) of the chest was performed with 100 mL Omnipaque-350 intravenous contrast. The dose-length product was 256.22 mGy-cm. Maximum intensity projection 3D-reconstructions of the aorta and other arteries were constructed by the technologist on a separate workstation. Automated exposure control and iterative reconstruction technique were employed. COMPARISON: Chest x-ray dated 04/25/[address] dated 11/20/2024. FINDINGS: Small right pleural effusion. Trace left pleural effusion. There is mediastinal lymphadenopathy. There is right hilar lymphadenopathy. There is atherosclerosis of the aorta and coronary arteries. Small hiatal hernia. Heart size normal. Pulmonary arteries are enlarged, consistent with pulmonary hypertension. Study is technically adequate without evidence for pulmonary embolism. There is patchy bilateral airspace disease of the right upper, right middle and bilateral lower lobes, consistent with multifocal pneumonia. No endobronchial lesions. There is emphysema. No suspicious pulmonary nodules or masses. Mild thoracic spondylosis. No focal lytic or blastic lesions. IMPRESSION: 1. Multifocal airspace disease, consistent with pneumonia. 2: Bilateral pleural effusions, right greater than left. 3: Mediastinal lymphadenopathy, likely reactive. 4.: Pulmonary artery enlargement, consistent with pulmonary hypertension. 5: Emphysema. My read: I have compared this to CT scans from 11/20/2024 and 08/29/2024 and 02/25/2024. Current CT shows no PE, , Small right pleural effusion, worsening consolidation and infiltrates in the right lower lobe compared to 11/20/2024 and 02/25/2024. Compared to CT scan on 02/25/2024 currently there are some ar eas of improved consolidation in the right lower lobe and some different areas with worsening consolidations in the right lower lobe. There is unchanged consolidation in the posterior left lower lobe with no change compared to 11/20/2024, 08/29/2024 and that have improved from 02/25/2024. Currently there are patchy consolidations in the right middle lobe some which were present on 11/20/2024 and some that are new. There were no infiltrates on 08/29/2024 in the right middle lobe. 01/02/25: Modified barium swallow: Impression: Moderate dysphagia 11/20/24: EXAMINATION:. Recommendations: Regular but easy to chew diet with regular liquids but patient must use chin tuck posture with all eating and drinking to prevent pharyngeal residual and instances of laryngeal penetration and aspiration. He was referral to outpatient speech therapy. 12/14/24: CRP 3.6, ESR 134, CPK 43, Aspergillus Niger IgE 0.31, very low level. Aspergillus Niger antibody negative, Aspergillus flatus antibody negative. Aspergillus fumigatus antibody negative. Rheumatoid factor 12.9, anti CCP antibody less than 16. TERRA screen positive with an anti-DNA antibody 27 (positive greater than 10), Anca screen negative, hypersensitivity pneumonitis panel negative. 01/24/2025: QuantiFERON gold negative. IgE 691 normal less than 114, rheumatoid factor 12.9. IgG 693, IgM 90, IgA 212, all normal. Aldolase 5.0 11/20/2024: CTA chest PE protocol INDICATION: Hypoxia elevated d-dimer COMPARISON: 08/29/2024 and 10/11/2021. FINDINGS: No filling defects within the main or proximal pulmonary arteries. The thoracic aorta is unremarkable. No aneurysmal dilatation or dissection. The heart is of normal size, without pericardial effusion. Panlobular emphysematous disease is identified. Patchy groundglass opacification detected bilaterally. Small bilateral pleural effusions with adjacent compressive atelectasis Multiple subcentimeter areas of decreased attenuation within the liver, unchanged dating back to 10/11/2021. IMPRESSION: No pulmonary embolus. No aneurysmal dilatation or dissection within the thoracic aorta. Small bilateral pleural effusions with adjacent compressive atelectasis. 08/16/2024: Overnight oximetry on 3 L nasal cannula. The report in the computer status overnight oximetry on room air but this is mislabeled as the test was performed on 3 L. Recording duration 8 hours and 39 minutes. Basal saturation 92.1%. High saturation 96%. Low saturation 79%. Time with saturation less than or equal to 88% was 4 minutes and 58 seconds. I will continue oxygen 3 L at night. 06/24/2024: This is a 6 minute walk test. The test was performed and interpreted in accordance with the 2014 ERS/ATS task force guidelines. Of note, patient used to wheeled walker for stability and the testing was performed on his home portable oxygen concentrator at 3 L with pulse dose. Findings: The patient's resting 3 L oxygen saturation measured by pulse oximetry was 95% and heart rate was 80 bpm. Patient ambulated for 137 meters and oxygen saturation remained 91 to 92%. Heart rate at the end of the study was 94 bpm. The patient did not have rest or exertional hypoxemia on 3 L nasal cannula pulse dose with his portable oxygen concentrator. 02/25/24 - CTA chest (ER) - No PE identified. 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 There is patchy consolidation in the right middle and bilateral lower lobes with additional regions of tree-in-bud opacity scattered throughout both lungs consistent with multifocal pneumonia. There is associated bronchial wall thickening and mucous plugging in the bilateral lower lobes. Tiny left pleural effusion. No septal line thickening to suggest pulmonary edema. No pneumothorax. Mild cardiomegaly. Atherosclerotic coronary artery calcifications. No pericardial effusion. 02/25/2024: ABG on 4 L cannula 7.39/35/63 01/15/24 - Home O2 eval - Required 2L/min O2 with ambulation and none at rest. 12/16/23 - PFT The test was performed and results interpreted in accordance with the 2019 and 2005 ATS/ERS Task Force guidelines respectively using the Global Lung Function Initiative-2012 reference equations. Patient demonstrated good effort and cooperation. Reproducibility criteria were met. The quality of the pre bronchodilator spirometry maneuver was Grade A and post bronchodilator spirometry maneuver was Grade A. Findings: Spirometry: There is decreased maximal expiratory airflow at all lung volumes with concave expiratory flow tracing. The contour the inspiratory flow tracing is normal. The pre bronchodilator FVC is 3.33 L, 82% predicted. The pre bronchodilator FEV1 is 2.02 L, 68% predicted. The pre bronchodilator FEV1: FVC ratio 61%. The post bronchodilator FVC is 3.41 L, representing a 2% increase. The post bronchodilator FEV1 is 2.09 L, representing a 3% increase. The post bronchodilator FEV1: FVC ratio 61%. Plethysmography: The total lung capacity is 6.43 L, 89% predicted. The functional residual capacity is 4.14 L, 106% predicted. The residual volume is 3.10 L, 115% predicted. The residual volume: Total lung capacity ratio is 48%. Diffusing capacity: The diffusing capacity unadjusted for hemoglobin and carboxyhemoglobin is 9.0, 37% predicted. The diffusing capacity adjusted for alveolar volume is 2.29, 64% predicted. Comparison to previous pulmonary function testing on 01/01/2022 the post bronchodilator FVC has decreased from 4.38 L to 3.41 L. The post bronchodilator FEV1 has decreased from 3.11 L to 2.09 L. the total lung capacity is decreased from 7.39 L to 6.43 L. The functional residual capacity has decreased from 4.95 L to 4.14 L. The residual volume is unchanged from 2.93 L to 3.10 L. The di ffusing capacity unadjusted for hemoglobin and carboxyhemoglobin is decreased from 14.9 to 9.0. The diffusing capacity adjusted for alveolar volume decreased from 2.63 to 2.29 Impression: There is a mild obstructive abnormality. There is no significant improvement after inhaling a single dose of albuterol. The increase in residual volume to total lung volume ratio is consistent with hyperinflation from an obstructive abnormality. The diffusing capacity unadjusted for hemoglobin and carboxyhemoglobin is severely decreased and remains mildly decreased when adjusted for alveolar volume. Compared to prior pulmonary function testing on 01/01/2022 there has been a significant decrease in the FVC, FEV1, total lung capacity, functional residual capacity and diffusing capacity with no significant change in the residual volume. 09/16/23 - Home O2 eval - Required 2L/min O2 with ambulation and none at rest. 01/01/22 - Home O2 eval - Patient did not require supplemental oxygen at rest or with exertion. 01/01/22 - PFTs - Mild obstructive abnormality with normal FEV1 without significant improvement after inhaling a single dose of albuterol. Lung volumes normal. The diffusing capacity unadjusted for hemoglobin is moderately decreased and normalizes when adjusted for alveolar volume. 12/18/21 - Overnight oximetry on room air - Time with saturation less than or equal to 88% was 4.0 minutes. Patient does not qualify for supplemental oxygen at night. 10/10/2021 - ABG on 4L NC - 7.44/43/70. 10/20/21 - Chest XR - Persistent patchy bilateral airspace disease with possible improvement in the left lung, compatible with pneumonia. 10/11/2021 - CTA chest - Extensive bilateral pulmonary infiltrates and likely reactive hilar or mediastinal adenopathy. Small right pleural effusion. No evidence of pulmonary embolism. 10/11/2021 - Echo - LV systolic function mildly reduced, EF 45-50%. Grade I diastolic dysfunction. The inferior wall, inferoseptal wall, basal inferolateral wall, and mid inferolateral wall are hypokinetic. Mild LA enlargement. No pulmonary hypertension. Review of Systems Constitutional: Constitutional: Reports no additional constitutional complaints Eyes: Eyes: Reports no additional eye complaints ENT: Reports system reviewed and no additional complaints, except as documented Cardiovascular: Cardiovascular: Reports no additional cardiovascular complaints Respiratory: Respiratory: Reports no additional respiratory complaints Gastrointestinal: Gastrointestinal: Reports no additional gastrointestinal complaints Musculoskeletal: Musculoskeletal: Reports no additional musculoskeletal complaints Neurologic: Reports system reviewed and no additional complaints, except as documented Psychiatric: Psychiatric: Reports no additional psychiatric complaints Endocrine: Endocrine: Reports no additional endocrine complaints Hematologic/Lymphatic: Hematologic/Lymphatic: Reports no additional hematologic/lymphatic complaints Allergic/Immunologic: Allergic/Immunologic: Reports no additional allergic/immunologic complaints Exam Const: General: cooperative, healthy appearing and comfortable Orientation/consciousness: oriented to person, oriented to place and oriented to time HENMT: Head: normal to inspection Ears: hearing grossly normal bilaterally Eyes: General: appearance normal, both eyes and all related structures Neck: Neck: normal visual inspection Chest: Chest palpation & inspection: normal inspection of the chest Resp: Effort & Inspection: normal respiratory effort and able to speak in complete sentences Auscultation: crackles, no rales, no rhonchi, no wheezes and lung sounds not diminished Other: Bilateral inspiratory crackles. No wheezes. Cardio: Jugular venous distension: no JVD GI: Inspection: normal to inspection Skin: General skin exam: normal color Neuro: General: oriented to person, oriented to place and oriented to time Extrem: General: normal to inspection Psych: Appearance: grossly normal Objective Data Vital Signs Vital Signs: Vital Signs - 24 hr 07/01/25 12:00 07/01/25 13:18 07/01/25 14:00 Temperature 36.7 C Pulse Rate 82 74 73 Respiratory Rate 18 18 Blood Pressure 150/62 H Pulse Oximetry 97 Oxygen Delivery Oxygen Flow Rate Fraction of Inspired Oxygen 07/01/25 16:00 07/01/25 20:00 07/01/25 20:05 Temperature Pulse Rate 78 65 Respiratory Rate Blood Pressure Pulse Oximetry 96 Oxygen Delivery Nasal Cannula Oxygen Flow Rate 2 Fraction of Inspired Oxygen 07/01/25 20:34 07/01/25 21:04 07/01/25 21:05 Temperature Pulse Rate 66 70 Respiratory Rate 20 Blood Pressure Pulse Oximetry 97 Oxygen Delivery Oxygen Flow Rate 2 Fraction of Inspired Oxygen 28 07/01/25 22:00 07/02/25 00:00 07/02/25 04:15 Temperature 36.7 C Pulse Rate 68 66 63 Respiratory Rate 18 Blood Pressure 114/54 L Pulse Oximetry 98 Oxygen Delivery Oxygen Flow Rate Fraction of Inspired Oxygen 07/02/25 06:00 07/02/25 07:55 07/02/25 07:57 Temperature 36.8 C Pulse Rate 63 64 Respiratory Rate 18 20 Blood Pressure 148/60 H Pulse Oximetry 96 93 Oxygen Delivery Oxygen Flow Rate 2.5 Fraction of Inspired Oxygen 28.5 07/02/25 08:09 Temperature Pulse Rate 78 Respiratory Rate 20 Blood Pressure Pulse Oximetry Oxygen Delivery Oxygen Flow Rate Fraction of Inspired Oxygen Intake/Output Intake/Output: Intake & Output 06/29/25 06/30/25 07/01/25 07/02/25 23:59 23:59 23:59 23:59 Intake Total 2070 1270 480 Output Total 1050 1600 1600 1125 Balance 1020 -330 -1120 -1125 Meds/Results Medications: Active Medications Generic Name Dose Route Start Last Admin Trade Name Freq PRN Reason Stop Dose Admin Acetaminophen 1,000 mg 06/29/25 12:36 07/01/25 06:28 Acetaminophen 500 Mg Tablet PO 1,000 mg Q6H PRN Administration Pain Acetylcysteine 200 mg 06/30/25 14:00 07/02/25 07:52 Acetylcysteine 20% Inhal Soln 800 Mg/4 Ml Vial INHALATION 200 mg Q6HRT GIOVANNY Administration Albuterol 2.5 mg 06/29/25 12:36 06/30/25 19:53 Albuterol Sulfate Neb 2.5 Mg/3 Ml Inh INHALATION 2.5 mg Q4H PRN Administration shortness of breath or wheezing Albuterol 2 puff 06/29/25 12:36 Albuterol Sulfate (*Sp) Aerosol 1 Puff INHALATION Q4H PRN Shortness Of Breath Or Wheezing Albuterol/Ipratropium 3 ml 06/29/25 08:00 07/02/25 07:53 Ipratropium 0.5 Mg/Albuterol Sulfate 2.5 Mg Ampul.Neb 3 Ml INHALATION 3 ml Q6HRT GIOVANNY Administration Aspirin 81 mg 06/29/25 13:00 07/02/25 09:45 Aspirin 81 Mg Enteric Tablet PO 81 mg DAILY GIOVANNY Administration Atorvastatin Calcium 80 mg 06/29/25 13:00 07/02/25 09:45 Atorvastatin 40 Mg Tablet PO 80 mg DAILY GIOVANNY Administration Azithromycin 250 mg 06/30/25 09:00 07/02/25 09:45 Azithromycin 250 Mg Tablet PO 07/03/25 09:01 250 mg DAILY GIOVANNY Administration Baclofen 5 mg 07/01/25 11:20 07/02/25 09:45 Baclofen 5 Mg Tablet PO 5 mg BID GIOVANNY Administration Baclofen 10 mg 07/01/25 21:00 07/01/25 20:34 Baclofen 10 Mg Tablet PO 10 mg HS GIOVANNY Administration Benzonatate 200 mg 06/29/25 13:00 Benzonatate 100 Mg Capsule PO TID PRN Cough Bupropion HCl 150 mg 06/29/25 17:00 07/02/25 09:45 Bupropion Hcl Sr (12 Hr) 150 Mg Tab PO 150 mg BID GIOVANNY Administration Enoxaparin Sodium 40 mg 06/30/25 09:00 07/02/25 09:51 Enoxaparin 40 Mg/0.4 Ml Syringe SUB-Q 40 mg DAILY GIOVANNY Administration Ethambutol HCl 1,200 mg 06/29/25 10:15 07/02/25 09:45 Ethambutol Hcl 400 Mg Tablet PO 1,200 mg DAILY GIOVANNY Administration Fenofibrate 145 mg 06/29/25 13:00 07/02/25 09:45 Fenofibrate Nanocrystallized 145 Mg Tablet PO 145 mg QAM GIOVANNY Administration Furosemide 40 mg 06/29/25 13:00 06/29/25 14:45 Furosemide 40 Mg Tablet PO 40 mg DAILY GIOVANNY Administration Guaifenesin 1,200 mg 06/30/25 11:55 07/02/25 09:45 Guaifenesin 12 Hr 600 Mg Tabcr PO 1,200 mg Q12HR GIOVANNY Administration Hydroxyzine HCl 25 mg 06/29/25 12:36 Hydroxyzine Hcl 25 Mg Tablet PO QID PRN anxiety Linaclotide 290 mcg 06/30/25 06:30 07/02/25 06:04 Linaclotide 145 Mcg Capsule PO 290 mcg DAILY@0630 GIOVANNY Administration Lorazepam 0.5 mg 06/29/25 12:35 06/29/25 14:44 Lorazepam (*Crx) 0.5 Mg Tablet PO 0.5 mg BID PRN Administration anxiety Losartan Potassium 25 mg 07/01/25 09:00 07/02/25 09:45 Losartan Potassium 25 Mg Tablet PO 25 mg DAILY GIOVANNY Administration Metoprolol Succinate 50 mg 06/29/25 21:00 07/01/25 20:34 Metoprolol Succinate Ext Rel 50 Mg Tabcr PO 50 mg HS GIOVANNY Administration Morphine Sulfate 30 mg 06/29/25 12:40 07/02/25 09:49 Morphine Sulfate (*Crx) 30 Mg Tabcr PO 30 mg Q12H PRN Administration pain Nitroglycerin 0.4 mg 06/29/25 12:36 Nitroglycerin Sl 0.4 Mg Tablet SUBLINGUAL Q5M PRN chest pain Non-Formulary Medication 200 mg 06/29/25 17:00 07/02/25 09:46 Sulindac BY MOUTH 07/29/25 16:59 200 mg BID GIOVANNY Administration Ondansetron HCl 4 mg 06/29/25 03:35 07/01/25 12:26 Ondansetron Inj 4 Mg/2 Ml Vial IV PUSH 4 mg Q4H PRN Administration Nausea Pantoprazole Sodium 40 mg 06/29/25 13:00 07/02/25 09:45 Pantoprazole 40 Mg Tablet PO 40 mg QAM GIOVANNY Administration Rifampin 600 mg 06/30/25 15:35 07/02/25 06:05 Rifampin 300 Mg Capsule PO 600 mg DAILY@0600 GIOVANNY Administration Sertraline HCl 50 mg 06/29/25 13:00 07/02/25 09:45 Sertraline Hcl 50 Mg Tablet PO 50 mg DAILY GIOVANNY Administration Tamsulosin HCl 0.4 mg 06/29/25 10:15 07/02/25 09:45 Tamsulosin Hcl 0.4 Mg Capsule PO 0.4 mg BID GIOVANNY Administration Tobramycin/Dexamethasone 1 drop 06/29/25 13:00 07/02/25 09:46 Tobramycin/Dexamethasone Op 2.5 Ml Btl EACH EYE Not Given QID [facility] Trazodone HCl 100 mg 06/29/25 21:00 07/01/25 20:35 Trazodone Hcl 50 Mg Tablet PO 100 mg HS GIOVANNY Administration Radiology Results: ITS Impressions Chest X-Ray 06/28/25 22:56 IMPRESSION: Increased right-sided pleural effusion when compared with previous study. Remainder of examination is unchanged. Chest CTA 06/29/25 05:32 Impression: No evidence of pulmonary embolus, aortic dissection, or aortic aneurysm. Patchy bilateral consolidation, suggestive of pneumonia and possible superimposed bibasilar atelectasis. There is significant worsening in the left upper lobe as compared to prior exam. Otherwise, remaining areas of airspace disease are similar to prior exam in the remainder of the lungs. Pulmonary edema not completely excluded, though felt to be somewhat less likely given the appearance and distribution of findings. Possible chronic scarring or atelectasis in the right middle lobe. Minimal pleural effusions. Labs Labs: Laboratory Results - last 24 hr 07/02/25 06:16 Sodium 134 L Potassium 4.4 Chloride 98 Carbon Dioxide 31 H Anion Gap 5 BUN 21 H Creatinine 0.88 Estim Creat Clear Calc 61 Estimated GFR > 60 Glucose 83 Calcium 9.5 Magnesium 1.9
[2025-07-02 10:02] LABS: CRP 2.4 mg/dL (<1.0)
[2025-07-02 10:07] LABS: NT Pro B Type Natriuretic Pept 2630 pg/mL (19.9-100)
--- NOTE | 2025-07-02 10:14 | PM.IMPN ---
Progress Note: A&P Assessment and Plan (1) Acute and chronic respiratory failure: Code(s): J96.20 - Acute and chronic respiratory failure, unspecified whether with hypoxia or hypercapnia Status: Resolved Assessment and Plan: On 1L O2 today. Reports desats on 5L O2 with ambulation at home. Desat to 80's with 4L today with ambulation. Needing 2L at rest --Wean O2 for sats >92% --Had a vest previously, resume per pulmonary recommendations --Appreciate Pulmonary recommendations --May benefit from pulmonary rehab (2) NSVT (nonsustained ventricular tachycardia): Code(s): I47.29 - Other ventricular tachycardia Status: Acute Assessment and Plan: 14 beat run NSVT AM 06/29. Asymptomatic. 3 beats overnight --Continue metoprolol 50mg daily --Monitoring on tele --Follow electrolytes (3) SNEHA (mycobacterium avium-intracellulare): Code(s): A31.0 - Pulmonary mycobacterial infection Status: Acute Assessment and Plan: Home meds: Ethambutol 1200mg daily, Rifabutin 150mg daily, Azithomycin 500 reduced to 250mg daily for hearing changes --Prior follow up with [facility] 06/27 had been scheduled. Coordinate next appointment --Azithromycin 250mg daily --Does not have rifabutin with him. Sent a prescription to [place] if able to fill. Continuing 600mg rifampin until able to fill rifabutin --Continue ethambutol --Called ID clinic and no stop date for antibiotics. Has follow up with [facility] clinic in July. (4) HTN (hypertension): Qualifiers: Hypertension type: primary hypertension Qualified Code(s): I10 - Essential (primary) hypertension Code(s): I10 - Essential (primary) hypertension Status: Chronic Assessment and Plan: Home meds: Losartan 25, Furosemide 40mg daily, Metoprolol 50 q24 --Hold losartan for mild SANDI --Lasix daily as tolerated, follow creatinine --Continue metoprolol (5) Goals of care, counseling/discussion: Code(s): Z71.89 - Other specified counseling Status: Acute Assessment and Plan: DNR/DNI No intubation or CPR Also discussed with patient's son (6) SANDI (acute kidney injury): Code(s): N17.9 - Acute kidney failure, unspecified Status: Acute Assessment and Plan: Creatinine 1.4, up from baseline 0.92. Back to 1.1 --Hold losartan --Likely resume lasix in AM (7) Chronic pain: Code(s): G89.29 - Other chronic pain Status: Acute Assessment and Plan: Home meds: Morphine ER 30mg q12 --Continue home morphine dose --Tylenol prn (8) Chronic obstructive pulmonary disease: Code(s): J44.9 - Chronic obstructive pulmonary disease, unspecified Status: Acute Assessment and Plan: Home meds: Bevespi 9-4.8mcg HFA inhaler, Breztri 160-9-4.8 HFA q12, Albuterol HFA prn, neb solution --s/p solumedrol 125 x1, Prednisone x1, then discontinued since no wheezing --Substituted Trelegy for home inhalers --Reports he has a nebulizer machine at home, does his own breathing treatments when needed --Pulmonary consulted, appreciate recommendations --Clarify inhalers for discharge Subjective Date/time seen: 07/02/25 10:14 Interval history: No diarrhea. Feeling better Objective Data Vital Signs Vital Signs: Vital Signs - 24 hr 07/01/25 12:00 07/01/25 13:18 07/01/25 14:00 Temperature 98.0 F Pulse Rate 82 74 73 Respiratory Rate 18 18 Blood Pressure 150/62 H Pulse Oximetry 97 Oxygen Delivery Oxygen Flow Rate Fraction of Inspired Oxygen 07/01/25 16:00 07/01/25 20:00 07/01/25 20:05 Temperature Pulse Rate 78 65 Respiratory Rate Blood Pressure Pulse Oximetry 96 Oxygen Delivery Nasal Cannula Oxygen Flow Rate 2 Fraction of Inspired Oxygen 07/01/25 20:34 07/01/25 21:04 07/01/25 21:05 Temperature Pulse Rate 66 70 Respiratory Rate 20 Blood Pressure Pulse Oximetry 97 Oxygen Delivery Oxygen Flow Rate 2 Fraction of Inspired Oxygen 28 07/01/25 22:00 07/02/25 00:00 07/02/25 04:15 Temperature 98.0 F Pulse Rate 68 66 63 Respiratory Rate 18 Blood Pressure 114/54 L Pulse Oximetry 98 Oxygen Delivery Oxygen Flow Rate Fraction of Inspired Oxygen 07/02/25 06:00 07/02/25 07:55 07/02/25 07:57 Temperature 98.2 F Pulse Rate 63 64 Respiratory Rate 18 20 Blood Pressure 148/60 H Pulse Oximetry 96 93 Oxygen Delivery Oxygen Flow Rate 2.5 Fraction of Inspired Oxygen 28.5 07/02/25 08:09 Temperature Pulse Rate 78 Respiratory Rate 20 Blood Pressure Pulse Oximetry Oxygen Delivery Oxygen Flow Rate Fraction of Inspired Oxygen Intake/Output Intake/Output: Intake & Output 06/29/25 06/30/25 07/01/25 07/02/25 23:59 23:59 23:59 23:59 Intake Total 2070 1270 480 240 Output Total 1050 1600 1600 1125 Balance 1020 -330 -1120 -885 Meds/Results Medications: Active Medications Generic Name Dose Route Start Last Admin Trade Name Freq PRN Reason Stop Dose Admin Acetaminophen 1,000 mg 06/29/25 12:36 07/01/25 06:28 Acetaminophen 500 Mg Tablet PO 1,000 mg Q6H PRN Administration Pain Acetylcysteine 200 mg 06/30/25 14:00 07/02/25 07:52 Acetylcysteine 20% Inhal Soln 800 Mg/4 Ml Vial INHALATION 200 mg Q6HRT GIOVANNY Administration Albuterol 2.5 mg 06/29/25 12:36 06/30/25 19:53 Albuterol Sulfate Neb 2.5 Mg/3 Ml Inh INHALATION 2.5 mg Q4H PRN Administration shortness of breath or wheezing Albuterol 2 puff 06/29/25 12:36 Albuterol Sulfate (*Sp) Aerosol 1 Puff INHALATION Q4H PRN Shortness Of Breath Or Wheezing Albuterol/Ipratropium 3 ml 06/29/25 08:00 07/02/25 07:53 Ipratropium 0.5 Mg/Albuterol Sulfate 2.5 Mg Ampul.Neb 3 Ml INHALATION 3 ml Q6HRT GIOVANNY Administration Aspirin 81 mg 06/29/25 13:00 07/02/25 09:45 Aspirin 81 Mg Enteric Tablet PO 81 mg DAILY GIOVANNY Administration Atorvastatin Calcium 80 mg 06/29/25 13:00 07/02/25 09:45 Atorvastatin 40 Mg Tablet PO 80 mg DAILY GIOVANNY Administration Azithromycin 250 mg 06/30/25 09:00 07/02/25 09:45 Azithromycin 250 Mg Tablet PO 07/03/25 09:01 250 mg DAILY GIOVANNY Administration Baclofen 5 mg 07/01/25 11:20 07/02/25 09:45 Baclofen 5 Mg Tablet PO 5 mg BID GIOVANNY Administration Baclofen 10 mg 07/01/25 21:00 07/01/25 20:34 Baclofen 10 Mg Tablet PO 10 mg HS GIOVANNY Administration Benzonatate 200 mg 06/29/25 13:00 Benzonatate 100 Mg Capsule PO TID PRN Cough Bupropion HCl 150 mg 06/29/25 17:00 07/02/25 09:45 Bupropion Hcl Sr (12 Hr) 150 Mg Tab PO 150 mg BID GIOVANNY Administration Enoxaparin Sodium 40 mg 06/30/25 09:00 07/02/25 09:51 Enoxaparin 40 Mg/0.4 Ml Syringe SUB-Q 40 mg DAILY GIOVANNY Administration Ethambutol HCl 1,200 mg 06/29/25 10:15 07/02/25 09:45 Ethambutol Hcl 400 Mg Tablet PO 1,200 mg DAILY GIOVANNY Administration Fenofibrate 145 mg 06/29/25 13:00 07/02/25 09:45 Fenofibrate Nanocrystallized 145 Mg Tablet PO 145 mg QAM GIOVANNY Administration Furosemide 40 mg 06/29/25 13:00 06/29/25 14:45 Furosemide 40 Mg Tablet PO 40 mg DAILY GIOVANNY Administration Guaifenesin 1,200 mg 06/30/25 11:55 07/02/25 09:45 Guaifenesin 12 Hr 600 Mg Tabcr PO 1,200 mg Q12HR GIOVANNY Administration Hydroxyzine HCl 25 mg 06/29/25 12:36 Hydroxyzine Hcl 25 Mg Tablet PO QID PRN anxiety Linaclotide 290 mcg 06/30/25 06:30 07/02/25 06:04 Linaclotide 145 Mcg Capsule PO 290 mcg DAILY@0630 GIOVANNY Administration Lorazepam 0.5 mg 06/29/25 12:35 06/29/25 14:44 Lorazepam (*Crx) 0.5 Mg Tablet PO 0.5 mg BID PRN Administration anxiety Losartan Potassium 25 mg 07/01/25 09:00 07/02/25 09:45 Losartan Potassium 25 Mg Tablet PO 25 mg DAILY GIOVANNY Administration Metoprolol Succinate 50 mg 06/29/25 21:00 07/01/25 20:34 Metoprolol Succinate Ext Rel 50 Mg Tabcr PO 50 mg HS GIOVANNY Administration Morphine Sulfate 30 mg 06/29/25 12:40 07/02/25 09:49 Morphine Sulfate (*Crx) 30 Mg Tabcr PO 30 mg Q12H PRN Administration pain Nitroglycerin 0.4 mg 06/29/25 12:36 Nitroglycerin Sl 0.4 Mg Tablet SUBLINGUAL Q5M PRN chest pain Non-Formulary Medication 200 mg 06/29/25 17:00 07/02/25 09:46 Sulindac BY MOUTH 07/29/25 16:59 200 mg BID GIOVANNY Administration Ondansetron HCl 4 mg 06/29/25 03:35 07/01/25 12:26 Ondansetron Inj 4 Mg/2 Ml Vial IV PUSH 4 mg Q4H PRN Administration Nausea Pantoprazole Sodium 40 mg 06/29/25 13:00 07/02/25 09:45 Pantoprazole 40 Mg Tablet PO 40 mg QAM GIOVANNY Administration Rifampin 600 mg 06/30/25 15:35 07/02/25 06:05 Rifampin 300 Mg Capsule PO 600 mg DAILY@0600 GIOVANNY Administration Sertraline HCl 50 mg 06/29/25 13:00 07/02/25 09:45 Sertraline Hcl 50 Mg Tablet PO 50 mg DAILY GIOVANNY Administration Tamsulosin HCl 0.4 mg 06/29/25 10:15 07/02/25 09:45 Tamsulosin Hcl 0.4 Mg Capsule PO 0.4 mg BID GIOVANNY Administration Tobramycin/Dexamethasone 1 drop 06/29/25 13:00 07/02/25 09:46 Tobramycin/Dexamethasone Op 2.5 Ml Btl EACH EYE Not Given QID GIOVANNY Trazodone HCl 100 mg 06/29/25 21:00 07/01/25 20:35 Trazodone Hcl 50 Mg Tablet PO 100 mg HS GIOVANNY Administration Radiology Results: ITS Impressions Chest X-Ray 06/28/25 22:56 IMPRESSION: Increased right-sided pleural effusion when compared with previous study. Remainder of examination is unchanged. Chest CTA 06/29/25 05:32 Impression: No evidence of pulmonary embolus, aortic dissection, or aortic aneurysm. Patchy bilateral consolidation, suggestive of pneumonia and possible superimposed bibasilar atelectasis. There is significant worsening in the left upper lobe as compared to prior exam. Otherwise, remaining areas of airspace disease are similar to prior exam in the remainder of the lungs. Pulmonary edema not completely excluded, though felt to be somewhat less likely given the appearance and distribution of findings. Possible chronic scarring or atelectasis in the right middle lobe. Minimal pleural effusions. Labs Labs: Laboratory Results - last 24 hr 07/02/25 06:16 Sodium 134 L Potassium 4.4 Chloride 98 Carbon Dioxide 31 H Anion Gap 5 BUN 21 H Creatinine 0.88 Estim Creat Clear Calc 61 Estimated GFR > 60 Glucose 83 Calcium 9.5 Magnesium 1.9 C-Reactive Protein 2.4 H NT-Pro-B Natriuret Pep 2630 H Quality VTE Prophylaxis VTE prophylaxis: pharmacologic ordered
[2025-07-02] MEDS: TOBRAMYCIN/DEXAMETHASONE OP 2.5 ML BTL 1 DROP EACH EYE (12:44)
--- NOTE | 2025-07-02 17:31 | PM.DS ---
DS: Admitting Diagnosis Discharge Date 07/02/25 Admitting Diagnosis Acute on chronic respiratory failure COPD exacerbation DS: Discharge Diagnosis Discharge Diagnosis (1) Bilateral pneumonia: Qualifiers: Pneumonia type: due to unspecified organism Code(s): J18.9 - Pneumonia, unspecified organism Status: Acute (2) SNEHA (mycobacterium avium-intracellulare): Code(s): A31.0 - Pulmonary mycobacterial infection Status: Acute (3) Acute and chronic respiratory failure: Code(s): J96.20 - Acute and chronic respiratory failure, unspecified whether with hypoxia or hypercapnia Status: Resolved DS: Summary Hospital Course Reason for hospitalization: From [facility] 06/29: Mr. Fuentes is an 80-year-old man with a history of COPD, SNEHA, recent admission for acute respiratory failure and transferred to [place], who was recently discharged 2 days ago and presented to the hospital for acute respiratory failure with activity. He was recently admitted from 06/15 to 06/23 and transferred to [place]. (Clarified and patient was admitted to [place] from 06/04-06/07). Discussed transfer to [place] again during last admission but ultimately did not require transfer. Pulmonary and ENT were consulted during admission. Pulmonary consulted, Dr. Vigil: SNEHA in sputum, multiple pulmonary infections requiring antibiotics on many date during 2023 and 2024. He saw [facility] ID on May 02 while inpatient at [place], was started on current regimen without azithromycin due to hearing loss; he is on rifabutin 300 mg a day, ethambutol 1200 mg a day. SNEHA always requires 3 medications, so he will need something to replace azithromycin. Ina with the ID team called today, said that he needs ot be on azithromycin 250 mg a day decreased from 500 mg; this is lower due to the dose related hearing loss. He will continue rifabutin 300 mg and EMB 1200 mg. Follow up appointment at [facility] ID June 27. I restarted azithromycin 250 mg on Jun 23. Planning follow up with pulmonary. ENT evaluated and he was noted to have impacted cerumen. Recommended flonase BID for 2 months. Follow up with ENT clinic. He reports limited activity, mostly bed to commode at the outside hospital. When he got home he had shortness of breath with activity and was unable to recover easily. Family at bedside notes that his saturations have been decreasing gradually over the last few days. Recovery when ambulating is slow, often 15 minutes or more and patient has a lot of anxiety when this happens. EMS was called and he was placed on a nonrebreather, weaned back to 4L I called [facility] clinic and he has follow up August 08 11:00. Waiting for a call back to verify antibiotic stop date. Rifabutin is not available in the hospital. Hospital Course: Acute and chronic respiratory failure: Reported desatting on 5L O2 with ambulation at home. Desat to 80's with 4L initially during admission with ambulation. Pulmonary consulted and weaned to 1L at rest, 2L with sleepy and 4L with activity. --Wean O2 for sats >90-92% --Had a vest previously, chest PT BID at facility if possible per pulmonary recommendations Chronic obstructive pulmonary disease: Home meds: Bevespi 9-4.8mcg HFA inhaler, Breztri 160-9-4.8 HFA q12, Albuterol HFA prn, neb solution Inital concern for COPD exacerbation s/p solumedrol 125 x1, Prednisone x1, then discontinued since no wheezing Less likely COPD exacerbation --Substituted Trelegy for home inhalers, pulmonary recommended discontinuing inhaled and oral steroids with SNEHA --Reports he has a nebulizer machine at home, does his own breathing treatments when needed Stopped Brextra. Continue Bevespi and albuterol prn for discharge, Duoneb prn NSVT (nonsustained ventricular tachycardia): 14 beat run NSVT AM 8/7. Asymptomatic. Occasional 3 beat run or PVC's otherwise. Electrolytes normal. --Continued metoprolol 50mg daily -- Follow electrolytes, BMP, Magnesium SNEHA (mycobacterium avium-intracellulare): Home meds: Ethambutol 1200mg daily, Rifabutin 150mg daily, Azithomycin 500 reduced to 250mg daily for hearing changes. Prior follow up with [facility] 06/27 had been rescheduled. Now planning follow up in July. Mix up with medications at home given complicated medication regimen --Azithromycin 250mg daily, ethambutol --Does not have rifabutin with him. Sent a prescription to [facility] if able to fill. Continuing 600mg rifampin until able to fill rifabutin. DC rifampin when rifabutin available. Patient's son planning to moss picker and bring to the facility --Follow up with [facility] clinic in July. --Aggressive pulmonary toilet--Chest physiotherapy BID, continued mucomyst HTN (hypertension): Home meds: Losartan 25, Furosemide 40mg daily, Metoprolol 50 q24 --Held losartan for mild SANDI, resumed --Continued Lasix daily --Continue metoprolol Goals of care, counseling/discussion: DNR/DNI No intubation or CPR Also discussed with patient's son, Marco, POA [phone] SANDI (acute kidney injury): Creatinine 1.4, up from baseline 0.92. Back to 0.88 --Continued lasix, held losartan, resumed Chronic pain: Home meds: Morphine ER 30mg q12 --Continue home morphine dose --Tylenol prn Headaches: Tension type, improved with stretching and baclofen hs --Continued baclofen 10mg hs & changed to 5 TID prn (from 10mg) --Recommended stretching. Can also use ice/heat to neck prn Dry eyes Hx cataract surgery tobradex eye drops from prior cataract surgery. Not current, stopped Olopatadine drops PRN for redness/irritation Status at Discharge Cognitive/behavioral status at discharge: A&Ox3 Time Spent with Patient Time attestation: Total time spent providing and/or coordinating discharge services: 58 minutes Exam Narrative: General - Awake and alert. No acute distress Eyes - PERRLA, EOM intact ENT - No thrush, No erythema Neck - No noticeable or palpable swelling Lymph Nodes - No lymphadenopathy Cardiovascular - RRR no m/r/g, no JVD Lungs: Crackles all lung short, No wheezing, use of accessory muscles Skin - Skin warm and dry, no wounds or rashes Abdomen - Normal bowel sounds, abdomen soft and nontender Extremities - No edema, cyanosis or clubbing Musculoskeletal - 5/5 strength, normal range of motion, no swollen or erythematous joints. Neurological ? Alert and oriented x 3, CN 2-12 grossly intact. Psych: Normal mood and affect DS: Data Data Completed and Pending Labs on day of discharge: Labs from last 24 hours 07/02/25 06:16 Sodium 134 L Potassium 4.4 Chloride 98 Carbon Dioxide 31 H Anion Gap 5 BUN 21 H Creatinine 0.88 Estim Creat Clear Calc 61 Estimated GFR > 60 Glucose 83 Calcium 9.5 Magnesium 1.9 C-Reactive Protein 2.4 H NT-Pro-B Natriuret Pep 2630 H Preliminary micro results at discharge 06/29/25 00:41 Blood Culture - Preliminary Blood 06/29/25 00:58 Blood Culture - Preliminary Blood Discharge Plan Discharge Attending physician on discharge: Mita Gaytan Consulting providers: Mita Gaytan; Salas Gottlieb Discharging Clinician: Mita Gaytan Anticipated Discharge Date/Time: 07/01/25 12:55 Patient Disposition: SNF Activity: march shower Diet: regular Discharge Instructions: Follow up with [facility] Infectious disease in July as scheduled, Follow up with Pulmonary Rifampin substitute for Rifabutin. When rifabutin is available from pharmacy (likely 07/03) will stop rifampin Continue oxygen, titrate for sats >90- percent 1 L O2 at rest, 2 L at night. He needs 4 L with activity. Continue stretching for neck pain/headaches. Also continuing baclofen at bedtime. Patient Instructions: Heart Failure (GEN) Patient Language: French Stand Alone Forms: General Discharge Information Follow-up/Referrals: Rogelio Moeller DO [Primary Care Provider] - 2 Weeks Discharge Medications: New azithromycin [Zithromax] 250 mg Tablet 250 mg PO DAILY Qty: 36 0RF rifampin 300 mg Capsule 600 mg PO DAILY@0600 2 Days Qty: 1 0RF guaifenesin [Mucus Relief ER] 600 mg Tablet Extended Release 12hr 1,200 mg PO Q12HR Qty: 60 0RF acetylcysteine 200 mg/mL (20 %) Solution 200 mg inhalation Q6HRT Qty: 180 0RF ipratropium-albuterol 0.5 mg-3 mg(2.5 mg base)/3 mL Solution For Nebulization 3 ml inhalation Q6HRT Qty: 180 0RF baclofen 10 mg Tablet 10 mg PO HS Qty: 30 0RF benzonatate 100 mg Capsule 200 mg PO TID PRN (Reason: Cough) Qty: 30 0RF olopatadine [Eye Allergy Itch Relief] 0.2 % drops 1 drp EACH EYE DAILY PRN (Reason: itching) Qty: 5 0RF Continued acetaminophen [Tylenol Extra Strength] 500 mg tablet 1,000 mg PO Q6H PRN (Reason: Pain) (DME) nebulizer and compressor Device See Rx Instructions .Route Qty: 1 0RF Rx Instructions: As directed (DME) nebulizer accessories Kit See Rx Instructions .Route Qty: 1 0RF Rx Instructions: As directed Bevespi Aerosphere 9-4.8 mcg HFA aerosol inhaler 2 puff inhalation BID Qty: 10.7 0RF ethambutol 400 mg tablet 1,200 mg PO DAILY losartan 25 mg tablet 25 mg PO DAILY tamsulosin 0.4 mg capsule 0.4 mg PO BID furosemide 20 mg tablet 40 mg PO DAILY esomeprazole magnesium 20 mg capsule,delayed release(DR/EC) 40 mg PO DAILY rifabutin 150 mg capsule 300 mg PO DAILY Qty: 60 3RF Patient Comments: take for 21 days, started on 06/08/25 morphine 30 mg tablet extended release 30 mg PO Q12H PRN (Reason: pain) 3 Days Qty: 6 0RF aspirin 81 mg Tablet,Delayed Release (Dr/Ec) 81 mg PO DAILY Qty: 90 0RF fenofibrate 160 mg tablet 160 mg PO DAILY Qty: 90 2RF Linzess 290 mcg capsule See Rx Instructions .ROUTE .COMPLEX Qty: 90 3RF Dose Instruction: TAKE 1 CAPSULE BY MOUTH DAILY Rx Instructions: TAKE 1 CAPSULE BY MOUTH DAILY albuterol sulfate 90 mcg/actuation HFA aerosol inhaler 2 puff INHALATION Q4H PRN (Reason: Shortness Of Breath Or Wheezing) Qty: 8.5 5RF nitroglycerin 0.4 mg tablet, sublingual 0.4 mg sublingual Q5M PRN (Reason: chest pain) Qty: 25 3RF Rx Instructions: do not exceed 3 doses per episode albuterol sulfate 2.5 mg /3 mL (0.083 %) solution for nebulization 2.5 mg inhalation Q4H PRN (Reason: shortness of breath or wheezing) Qty: 90 3RF bupropion HCl 150 mg tablet sustained-release 12 hr 150 mg PO BID Qty: 180 2RF metoprolol succinate 50 mg tablet extended release 24 hr 50 mg PO HS Qty: 90 1RF lorazepam 0.5 mg tablet 0.5 mg PO BID PRN (Reason: anxiety) Qty: 60 3RF sulindac 200 mg tablet 200 mg PO BID Qty: 180 1RF atorvastatin 80 mg tablet 80 mg PO DAILY Qty: 90 1RF sertraline 50 mg tablet 50 mg PO DAILY Qty: 90 3RF hydroxyzine HCl 25 mg tablet 25 mg PO QID PRN (Reason: anxiety) Qty: 50 2RF trazodone 100 mg tablet 100 mg PO HS Qty: 90 1RF Changed baclofen 10 mg tablet 5 mg PO TID PRN (Reason: muscle spasm) Qty: 30 0RF Discontinued Breztri Aerosphere 160-9-4.8 mcg/actuation HFA aerosol inhaler 2 inh INHALATION .q12hr tobramycin-dexamethasone 0.3-0.1 % drops,suspension 1 drp EACH EYE QID Qty: 10 0RF benzonatate 200 mg capsule See Rx Instructions .ROUTE .COMPLEX Qty: 90 0RF Dose Instruction: TAKE 1 CAPSULE BY MOUTH THREE TIMES DAILY NEEDED FOR COUGH Rx Instructions: TAKE 1 CAPSULE BY MOUTH THREE TIMES DAILY NEEDED FOR COUGH Date of admission: 06/30/25 12:20 Primary Care Provider: Rogelio Moeller Admitting Provider: Delvin Rivera Attending physician on admission: Delvin Rivera Condition: Improved Quality VTE Prophylaxis VTE prophylaxis: pharmacologic ordered Hospitalist MIPS Heart Failure (Exclusion) Patient has history of Heart Transplant or Left Ventricular Assistive Device?: No IF YES, STOP HERE Heart Failure (Qualifier) Patient has current or prior documentation of LVEF less than or equal to 40%, or mod/servere depressed LVSF?: No IF NO, STOP HERE
== END 2025-07-02 16:29 | DRG 193 ==
LOC: ANHED 06-29 03:12 → ANHIMU 06-29 04:25 → ANH3MEDSUR 06-29 16:03
PROVIDERS: Internal Medicine Pulmonary Disease; Nurse Practitioner Acute Care; Admitting Provider Internal Medicine; Emergency Provider Student in an Organized Health Care Education/Training Program; PCP Family Medicine; Visit Provider Internal Medicine
DX: J18.9 Pneumonia, unspecified organism (principal); J96.21 Acute and chronic respiratory failure with hypoxia; I13.0 Hypertensive heart and chronic kidney disease with heart failure and stage 1 through stage 4 chronic kidney disease, or unspecified chronic kidney disease; I50.22 Chronic systolic (congestive) heart failure; I47.29 Other ventricular tachycardia; N17.9 Acute kidney failure, unspecified; E44.0 Moderate protein-calorie malnutrition; A31.0 Pulmonary mycobacterial infection; J43.9 Emphysema, unspecified; G25.81 Restless legs syndrome; G89.29 Other chronic pain; H91.90 Unspecified hearing loss, unspecified ear; E55.9 Vitamin D deficiency, unspecified; E78.5 Hyperlipidemia, unspecified; I25.2 Old myocardial infarction; I25.5 Ischemic cardiomyopathy; I25.10 Atherosclerotic heart disease of native coronary artery without angina pectoris; K21.9 Gastro-esophageal reflux disease without esophagitis; N18.30 Chronic kidney disease, stage 3 unspecified; N40.0 Benign prostatic hyperplasia without lower urinary tract symptoms; Z20.822 Contact with and (suspected) exposure to COVID-19; Z79.82 Long term (current) use of aspirin; Z99.81 Dependence on supplemental oxygen; Z95.5 Presence of coronary angioplasty implant and graft; Z87.891 Personal history of nicotine dependence; Z66 Do not resuscitate; Z68.23 Body mass index [BMI] 23.0-23.9, adult
CPT/HCPCS: 36415; 36600; 71045; 71275; 80048; 80053; 81003; 82805; 83735; 83880; 84100; 84145; 84484; 85018; 85025; 85380; 85652; 86140; 87040; 87449; 87637; 87899; 93005; 94640; 94668; 94669; 94762; 96361; 96365; 96367; 96375; 97161; 97166; 97535; 99285; A9270; G0378; J0456; J0696; J1650; J2405; J2919; J3475; J7030; J7040; J7050; J7512; Q9967

== ENCOUNTER 2025-07-18 07:35 | Inpatient (IN) | payer MEDICARE, SELFPAY ==
[2025-07-18] VITALS (19 sets, daily range): BP systolic 112–154; BP diastolic 51–83; PULSE 68–91; RESP 14–23; TEMP 36.4–36.9; O2SAT 88–100; BMI 22.8
--- NOTE | ~2025-07-18 | XR_ITS ---
XR chest 2V 07/18/2025 08:15 Indication: Altered mental status Procedure: 2 view chest Comparison: Comparison to multiple prior studies sequentially, with oldest reviewed study dated 06/20/2025. Findings: Heart size normal. Extensive patchy bilateral airspace disease, compatible with pneumonia which has progressed since 06/28/2025. Small pleural effusions, right greater than left. The lungs are hyperinflated which is consistent with, but not diagnostic of chronic obstructive pulmonary disease. Impression: 1: Extensive patchy bilateral airspace disease, compatible with pneumonia. 2: Small pleural effusions. Reviewed, dictated and finalized at location O. Impression: 1: Extensive patchy bilateral airspace disease, compatible with pneumonia. 2: Small pleural effusions.
--- NOTE | ~2025-07-18 | CT_ITS ---
EXAMINATION: CT brain wo con DATE: 07/18/2025 08:11 INDICATION: Altered mental status TECHNIQUE: Computed tomography (CT) of the head was performed without intravenous contrast. The dose-length product was 605.33 mGy-cm. COMPARISON: CT dated 11/04/2024 FINDINGS: Brain parenchymal volume is normal for age. There are scattered mild periventricular and subcortical white matter changes, most likely related to small vessel ischemic disease (microangiopathy). No ventriculomegaly or midline shift. There is a small left mastoid effusion. Paranasal sinuses are unremarkable. There are partially visualized surgical changes of the right mandible. IMPRESSION: 1. No acute intracranial abnormality. Reviewed, dictated and finalized at location O.
--- NOTE | 2025-07-18 07:37 | ECG_ITS ---
Test Date: 2025-07-18 07:42:00 Measurements Intervals [place] Rate: 72 P: 50 MD: 220 QRS: 3 QRSD: 114 T: 11 QT: 404 QTc: 442 Interpretive Statements SINUS RHYTHM WITH FIRST DEGREE AV BLOCK WITH OCCASIONAL SUPRAVENTRICULAR PREMATURE COMPLEXES INCOMPLETE RIGHT BUNDLE BRANCH BLOCK BORDERLINE ST-T WAVE ABNORMALITY- INFERIOR LEADS BORDERLINE ECG Compared to ECG 06/28/2025 22:06:32 No significant changes Electronically Signed On 07-18-2025 07:51:45 CDT by Tim Mary D.O.
--- OUTSIDE RECORDS SUMMARY | 2025-07-18 07:47 | XMS_ITS | Clinical Summary ---
Author Organization [email or web address] [facility] Address [address] [place] [address] Care Team Providers Care Financial Services Intern Name Role Phone Naveed Mcintosh MD Primary Care Provider [phone]- [phone] Allergies No known active allergies Medications meloxicam [...] Take 1 Tablet by mouth daily. Active Macsi-0-NII-EPA -Fish Oil (FISH OIL) 1,000 mg (120 [...] 2025 Insurance [facility] [id number] Care Teams Financial Services Intern Relationship Specialty Start Date End Date Naveed Mcintosh MD PCP - General Family Practice 05/18/19
--- OUTSIDE RECORDS SUMMARY | 2025-07-18 07:47 | XMS_ITS | Encounter Summary ---
Author Organization [facility] Healthcare Address [address] [place] [address] Care Team Providers Care Supervisor Riveting Name Role Phone Naveed Mcintosh MD Primary Care Prov ider Salas Gottlieb MD Unavailable [phone] Yarelis Rachel [facility] Unavailable [phone] Encounter Details Date Type Department Care Team (Late st Contact Info) Description 02/28/2024 Orders Only [facility] Health Information Management [address] [place] [id number] Scanning, Provider Social History Tobacco Use Types Packs/Day Years Used Date Smoking Tobacco: Former Cigarettes 1.5 65 0 [birth year]/12/1956 - 09/19/2018 Smokeless Tobacco: Never Comments:Quit 08/2019 Alcohol Use Standard Drinks/Week Comments Not Currently 0 (1 standard drink = 0.6 oz pur e alcohol) Sex and Gender Information Value Date Recorded Sex Assigned at Not on file 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 Gender Identity Male 11/26/2019 3:10 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 Sexual Orientation Not on file documented as of this encounter Plan of Treatment Not on file documented as of this encounter Procedures Procedure Name Priority Date/Time Associated Diagnosis Comments SCAN - RADIOLOGY/IMAGING 02/28/2024 documented in this encounter Results * SCAN - RADIOLOGY/IMAGING (02/28/2024) Anatomical Region Laterality Modality Other us Provider Scanning Final Result documented in this encounter Visit Diagnoses Not on filedocumented in this encounter Additional Health Concerns Infection Onset Date Last Indicated Resolved Time Tuberculosis (rule out) 06/04/2025 06/04/2025 documented as of this encounter Care Teams Supervisor Riveting Relationship Specialty Start Date End Date Naveed Mcintosh MD PCP - General Family Medicine 10/07/19 Salas Gottlieb MD [address] [place] [address] Referring Physician Critical Care Med 06/02/25 Yarelis Rachel, MEDICATION RECONCILIATION TECHNICIAN [address] [facility] ([facility] [place] Mailstop [phone] [place] [address] [facility] 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
--- OUTSIDE RECORDS SUMMARY | 2025-07-18 07:47 | XMS_ITS | Continuity of Care Document ---
Author Organization [facility] Main Address [address] [place] [address] Insurance Providers Payer Plan Claims Address Claims Phone Policy Number Group Number Relation Employer Guarantor Name Guarantor Guarantor Address Guarantor Phone [facility] MEDIC RE ADVANT AGE [place] [employer] HCARE MEDIC ARE [place] [address] [address], [place] [address] tel:[phone] Self Russell Morse [address] [place] [address] [place] [address] [facility] [employer] HCARE MEDIC ARE [address] [address], [place] [address] tel:[phone] Self Russell Morse [address] [place] [address] [phone] [facility] fatemeh Insura dce [facility] [id number] Self Russell Morse [address] [place] [address] [id number] Problems Condition ICD9 code ICD10 code SNOMED [...]
--- OUTSIDE RECORDS SUMMARY | 2025-07-18 07:47 | XMS_ITS | Clinical Summary ---
Author Organization [facility] [address] Address [address] [place] [address] Care Team Providers Care Law Firm Administrator Name Role Phone Naveed Mcintosh MD Primary Care Prov ider Salas Gottlieb MD Unavailable [phone] Allergies Active Allergy Reactions Criticality Noted Date [...] 80 mg tabletIndicati ons:Coronary artery disease involving minto coronary 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 TAKE 1 TABLET [...] mouth daily 21 tablet 06/07/20 25 Active losartan (COZAAR) 25 mg tabletIndicati ons:Coronary artery disease involving minto coronary 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 TAKE 1 TABLET(25 MG) BY MOUTH DAILY 90 tablet 06/26/20 25 Active losartan (COZAAR) 25 mg tabletIndicati ons:Coronary artery disease involving minto coronary 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 Take 1 tablet (25 mg total) by mouth daily 90 tablet 3 05/13/20 24 025 Discontinued rifabutin (MYCOBUTIN) 150 mg capsuleIndicat ions:Mycobacte riosis Take 2 capsules (300 mg total) by mouth daily for 21 days 42 capsule 06/07/20 25 025 levoFLOXacin (LEVAQUIN) 750 mg tabletIndicati ons:Pneumonia, Community Acquired Take 1 tablet (750 mg total) 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 Harvey Gottlieb who is his laboratory animal care veterinarian at [facility]. His previous pulmonary workup included [...] with Dr. Harvey Gottlieb who is his laboratory animal care veterinarian at [facility]. His previous pulmonary workup included [...] with Dr. Harvey Gottlieb who is his laboratory animal care veterinarian at [facility]. 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 ID was consulted for MAC and patient was started on triple therapy for this 06/04. CT chest did show basilar consolidation suggestive of aspiration +/- pneumonia and PNA PCR + pseudomonas Since arrival to [facility], he has been on 3 L nasal [...] with Dr. Harvey Gottlieb who is his laboratory animal care veterinarian at [facility]. His previous pulmonary workup included [...] GERD, depression, BPH who was transferred to [facility] from [facility] 06/04 for further management of [...] with Dr. Adams who communicated that outpatient laboratory animal care veterinarian has done immunoglobulin levels, and patient has [...] of COPD exacerbation/pneumonia/brochiectasis exacerbation. Since arrival to [facility], he has been on 3 L nasal [...] (06/04/2025 3:59 AM CDT): Transferred from [facility] for pulm and ID evaluation of recurrent bacterial PNA and MAC infection. 11 episodes of PNA requiring abx therapy in past two years. Hx of COPD on baseline 4L NC reported. 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 ID was consulted for MAC and patient was started on triple therapy for this 06/04. CT chest did show basilar consolidation suggestive of aspiration +/- pneumonia and PNA PCR + pseudomonas Since arrival to [facility], he has been on 3 L nasal [...] GERD, depression, BPH who was transferred to [facility] from [facility] 06/04 for further management of [...] with Dr. Adams who communicated that outpatient laboratory animal care veterinarian has done immunoglobulin levels, and patient has [...] of COPD exacerbation/pneumonia/brochiectasis exacerbation. Since arrival to [facility], he has been on 3 L nasal [...] (06/04/2025 3:59 AM CDT): Transferred from [facility] for pulm and ID evaluation of recurrent bacterial PNA and MAC infection. 11 episodes of PNA requiring abx therapy in past two years. Hx of COPD on baseline 4L NC reported. MAC infection on recent sputum cultures, evaluated by ID here at [facility] and recommended starting rifabutin 300mg daily, azithromycin [...] - chest xray, defer further imaging until managing consultant recs to avoid unnecessary repeat radiation [...] with Dr. Harvey Gottlieb who is his laboratory animal care veterinarian at [facility]. His previous pulmonary workup included [...] with Dr. Harvey Gottlieb who is his laboratory animal care veterinarian at [facility]. His previous pulmonary workup included [...] with Dr. Harvey Gottlieb who is his laboratory animal care veterinarian at [facility]. 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 ID was consulted for MAC and patient was started on triple therapy for this 06/04. CT chest did show basilar consolidation suggestive of aspiration +/- pneumonia and PNA PCR + pseudomonas Since arrival to [facility], he has been on 3 L nasal [...] GERD, depression, BPH who was transferred to [facility] from [facility] 06/04 for further management of [...] with Dr. Adams who communicated that outpatient laboratory animal care veterinarian has done immunoglobulin levels, and patient has [...] of COPD exacerbation/pneumonia/brochiectasis exacerbation. Since arrival to [facility], he has been on 3 L nasal [...] (06/04/2025 3:59 AM CDT): Transferred from [facility] for pulm and ID evaluation of recurrent bacterial PNA and MAC infection. 11 episodes of PNA requiring abx therapy in past two years. Hx of COPD on baseline 4L NC reported. MAC infection on recent sputum cultures, evaluated by ID here at [facility] and recommended starting rifabutin 300mg daily, azithromycin [...] - chest xray, defer further imaging until managing consultant recs to avoid unnecessary repeat radiation [...] DAYLIN. Follows with Dr. Clemons at the [facility] in [place], [place]. 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 Follows with Dr. Clemons at the [facility] in [place], [place]. 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 Follows with Dr. Clemons at the [facility] in [place], [place]. Assessment & Plan (06/04/2025 3:59 AM [...] with Dr. Harvey Gottlieb who is his laboratory animal care veterinarian at [facility]. His previous pulmonary workup included [...] (06/04/2025 3:59 AM CDT): Transferred from [facility] for pulm and ID evaluation of recurrent bacterial PNA and MAC infection. 11 episodes of PNA requiring abx therapy in past two years. Hx of COPD on baseline 4L NC reported. MAC infection on recent sputum cultures, evaluated by ID here at [facility] and recommended starting rifabutin 300mg daily, azithromycin [...] with worsening appearance of the bilateral lung shrot, right greater than left, with volume loss [...] - chest xray, defer further imaging until managing consultant recs to avoid unnecessary repeat radiation [...] and go back to home inhaler. - ASSISTANT PROFESSOR OF MUSIC evaluation - Will f/u ANCA. - Will [...] valve, BID vest therapy and DuoNebs. - ASSISTANT PROFESSOR OF MUSIC evaluation - Continue current antibiotics (meropenem, azithro) [...] TERRA, RF, ANCA (MPO PR3) Ischemic cardiomyopathy 10/28/201905/235 Assessment & Plan (06/05/2025 1:01 PM CDT): [...] Encounters Date Type Department Care Team Description 06/30/2025 Telephone [facility] Medicine Infectious Diseases [address] [place] [phone] Alyssa Chen 06/26/2025 SHOP/CHAP Subsequent Outreach [facility] OP CASE MANAGEMENT [address] [place] [address] Yarelis Rachel LCSW 06/21/2025 Telephone [facility] Medicine Infectious Diseases [address] [place] [phone] Gladys Larson, KALPESH 06/20/2025 Telephone [facility] Medicine Infectious Diseases [address] [place] [phone] Alyssa Chen 06/19/2025 SHOP/CHAP Subsequent Outreach [facility] OP CASE [facility]NAGEMENT [address] [place] [address] Yarelis Rachel LCSW 06/16/2025 SHOP/CHAP Subsequent Outreach [facility] OP CASE MANAGEMENT [address] [place] [address] Yarelis Rachel LCSW 06/15/2025 Documentation Internal Medicine John Guzmán MD Transfer Notification 06/15/2025 SHOP/CHAP Subsequent Outreach [facility] CASE MANAGEMENT [address] [place] [address] Yarelis Rachel, PROFESSIONAL ADVISOR 06/15/2025 Telephone [facility] Medicine Infectious Diseases [address] [phone] Daniella Leach 06/15/2025 Telephone [facility] Medicine Infectious Diseases [address] [phone] Alyssa Chen 06/13/2025 Telephone [facility] Medicine Infectious Diseases [address] [phone] Alyssa Chen 06/08/2025 SHOP/CHAP Initial Outreach [facility] CASE [facility]NAG[facility] [address] [place] [address] Yarelis Rachel LCSW 06/08/2025 Telephone [facility] Home Care Services [address] [place] [address] [place] [phone] Lindsay Quiroz 06/08/2025 SHOP/CHAP Initial Eligibility Review [facility]NAGEMENT [address] [place] [address] Yarelis Rachel, PROFESSIONAL ADVISOR 06/07/2025 Telephone [facility] Home Care Services [address] [place] [phone] Lindsay Quiroz 06/07/2025 Telephone [facility] Home Care Services [address] [place] [phone] Lindsay Quiroz 06/07/2025 Orders Only [facility] Scheduling [address] [place] [address] Camilo Shi MD Shortness of breath (Primary Dx) 06/06/2025 3:30 PM CDT - 06/06/2025 11:59 PM CDT Hospital Encounter [facility]iology [address] [place] [address] Discharge Disposition: Discharge to home or self care 06/04/2025 1:12 AM CDT - 06/07/2025 3:09 PM CDT Hospital Encounter [facility] [address] [place] [address] Lukas Paredes MD Kocak, MD Raffy Smithwood, MD Tomer Marina, Dianna Flores MD Acute on chronic hypoxic respiratory failure (HCC) (Primary Dx) Discharge Disposition: Discharge to home, home health skilled care 06/02/2025 Telephone [facility] Infectious Diseases [address] [phone] Enma Tate, ZIA 06/02/2025 Telephone [facility] Infectious Diseases [address] [place] [phone] Alyssa Chen 05/30/2025 Documentation Internal Medicine Lukas Paredes MD 05/30/2025 Telephone [facility] Infectious Diseases [address] [place] [phone] Alyssa Chen 05/30/2025 Telephone [facility] Infectious Diseases [address] [place] [phone] Enma Tate, ZIA 05/04/2025 Telephone [facility] Infectious Diseases [address] [place] [phone] Kaylin Horvath, [facility] 05/04/2025 Telephone [facility] Infectious Diseases [address] [place] [phone] Daniella Leach 05/02/2025 1:22 PM CDT - 05/02/2025 11:59 PM CDT Hospital Encounter [facility] [address] [place] [address] Discharge Disposition: Discharge to home or self care 05/02/2025 10:24 AM CDT - 05/02/2025 11:59 PM CDT Hospital Encounter [facility] [address] [place] [address] Diagnosis unknown Discharge Disposition: Discharge to home or self care 05/02/2025 10:17 AM CDT - 05/02/2025 11:59 PM CDT Hospital Encounter [facility] [place] [address] Discharge Disposition: Discharge to home or self care 05/02/2025 8:40 AM CDT Office Visit [facility] Medicine Infectious Diseases [address] [facility] [address] [place] [address] Gladys Larson NP Mycobacterial infection, unspecified 04/25/2025 [...] drink = 0.6 oz pur e alcohol) [facility] Utilities Answer Date Recorded In the past 12 months has th e electric, gas, oil, or water company threatened to shut off services in your home? No 06/08/2025 Social Connection and Isolation Panel Answer Date Recorded In a typical week, how many times do you talk on the phone with family, friends, or neighbors? More than three times a week 06/08/2025 How often do you get togethe r with friends or relatives? More than three times a week 06/08/2025 How often do you attend chur ch or temple services? Never 06/08/2025 Do you belong to any clubs o r organizations such as nondenominational groups, unions, fraternal or athletic groups, or [...] any time in the past 12 m [facility], were you homeless or living in a half-way (including now)? No 06/08/2025 Personal Safety Answer Date Recorded Have you ever been in or are you currently in a harmful physical or emotional relationship or is someone making you feel afraid or unsafe? 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 Department [place] [address] * (ABNORMAL) Differential, auto (06/06/2025 9:15 PM CDT) Neutrophil abs 5.92 1.50 - 6.50 K/cumm Imm gran abs 0.14(H) 0.00 - 0.10 K/cumm [facility] Lymphocyte abs 1.20 0.80 - 3.30 K/cumm [facility] Monocyte abs 1.06(H) 0.20 - 0.80 K/cumm [facility] Eosinophil abs 0.40 0.00 - 0.50 K[facility]cumm [facility] Basophil abs 0.03 0.00 - 0.10 K/cumm [facility] Neutrophil pct 67.7 % [facility] Comment: Interpretive Data Percent cell count reference ranges are not reported, since discordance with absolute values may lead to misinterpretation of CBC data. Current Interpretive Data was last revised on 2018. Imm gran pct 1.6 % [facility] Comment: Interpretive Data Percent cell count reference ranges are not reported, since discordance with absolute values may lead to misinterpretation of CBC data. Current Interpretive Data was last revised on 2018. Lymphocyte pct 13.7 % [facility] Comment: Interpretive Data Percent cell count reference ranges are not reported, since discordance with absolute values may lead to misinterpretation of CBC data. Current Interpretive Data was last revised on 2018. Monocyte pct 12.1 % [facility] Comment: Interpretive Data Percent cell count reference ranges are not reported, since discordance with absolute values may lead to misinterpretation of CBC data. Current Interpretive Data was last revised on 2018. Eosinophil pct 4.6 % [facility] Comment: Interpretive Data Percent cell count reference ranges are not reported, since discordance with absolute values may lead to misinterpretation of CBC data. Current Interpretive Data was last revised on 2018. Basophil pct 0.3 % [facility] Comment: Interpretive Data Percent cell count reference ranges are not reported, since discordance with absolute values may lead to misinterpretation of CBC data. Current Interpretive Data was last revised on 2018. Blood 06/06/2025 9:15 PM CDT 06/06/2025 10:33 PM CDT Dianna Root MD LAB BLOOD ORDERABLES Final Resu lt Performing Organization Address City/[facility]/ZIP Co de Phone Number [facility] Department [place] [employer] [place] [address] * (ABNORMAL) CBC with auto differential (06/06/2025 9:15 PM CDT) WBC 8.75 3.80 - 9.90 K/cumm Hgb 8.9(L) 13.0 - 17.5 g/dL [facility] Hct 28.3(L) 38.9 - 50.3 % [facility] Plt 263 150 - 400 K/cumm [facility] MPV 10.8 9.1 - 12.3 fL [facility] RBC 3.18(L) 4.30 - 5.80 M/cumm [facility] MCV 89.0 81.3 - 96.4 fL [facility] MCH 28.0 27.1 - 33.3 pg [facility] MCHC 31.4(L) 32.3 - 35.7 g/dL [facility] RDW CV 15.0(H) 11.1 - 14.9 % [facility] RDW SD 48.6(H) 35.7 - 48.1 fL [facility] NRBC abs 0.00 0.00 - 0.01 K/cumm [facility] Blood 06/06/2025 9:15 PM CDT 06/06/2025 10:33 PM CDT Dianna Root MD LAB BLOOD ORDERABLES Final Resu lt [facility] Department [place] [address] * (ABNORMAL) Protime-INR (06/06/2025 9:15 PM CDT) PT 17.4(H) 9.7 - 13.0 sec INR 1.60(H) 0.90 - 1.20 [facility] Comment: Interpretive data Oral anticoagulant therapeutic ranges: Venous thromboembolism prophylaxis or treatment: 2.0-3.0 CARDIOLOGY Standard range: 2.0-3.0 High-intensity range: 2.5-3.5 Refer to indication-specific guidelines for appropriate target ranges for prosthetic heart valve replacement. Current interpretive data was last revised on 2019. Blood 06/06/2025 9:15 PM CDT 06/06/2025 10:36 PM CDT Dianna Root MD LAB BLOOD ORDERABLES Final Resu lt [facility] [address] [facility] Department [place] [address] * (ABNORMAL) Comprehensive metabolic panel (06/06/2025 9:15 PM CDT) Pathologist [facility] Sodium 139 135 - 145 mmol/L Potassium, pl 4.7 3.3 - 4.9 mmol/L [facility] Chloride 96(L) 97 - 110 mmol/L [facility] CO2 35(H) 22 - 32 mmol/L [facility] Anion gap 8 2 - 15 mmol/L [facility] BUN 27(H) 6 - 25 mg/dL [facility] Creatinine 1.01 0.80 - 1.30 mg/dL [facility] Glucose 103 70 - 199 mg/dL [facility] Comment: Interpretive Data Fasting glucose [...] Calcium 9.6 8.5 - 10.3 mg/dL [facility] Bilirubin, total 0.3 0.1 - 1.2 mg/dL [facility] Protein, pl 6.8 6.5 - 8.5 g/dL [facility] Albumin 3.2(L) 3.5 - 5.0 g/dL [facility] Alk phos 194(H) 40 - 130 Units/L [facility] ALT 23 7 - 55 Units/L [facility] AST 34 10 - 50 Units/L [facility] Blood 06/06/2025 9:15 PM CDT 06/06/2025 10:33 PM CDT us Dianna Root MD LAB BLOOD ORDERABLES Final Resu lt [facility] Department [place] [address] * FL Modified Barium Swallow W Video [...] IMG FLUOROSCOPY PROCEDURE S Final Result * ASSISTANT PROFESSOR OF MUSIC Evaluate and Treat (VFSS) (06/06/2025 3:30 PM CDT) Narrative Taisha Auguste SLP - 06/06/2025 3:30 PM CDT Taisha Auguste SLP 06/06/2025 4:33 PM Speech-Language Pathology: Videofluoroscopic Study of Swallow (VFSS/MBS) HPI/PMH 80 y.o. 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 Plan ASSISTANT PROFESSOR OF MUSIC Frequency of Services during current admission: Discharge from this Service ASSISTANT PROFESSOR OF MUSIC Recommendation (Add'l Services): No further ASSISTANT PROFESSOR OF MUSIC indicated Next Visit Plan: No further ST warranted Additional Referrals: N/A Discharge Summary Statement If this is the last swallow therapy visit, this serves as the discharge summary. us Lukas Paredes MD ASSISTANT PROFESSOR OF MUSIC ORDERABLES Final Res ult * ASSISTANT PROFESSOR OF MUSIC Evaluation and Treatment (06/06/2025 3:30 PM CDT) Taisha Burton, JOE - 06/06/2025 3:30 PM CDT Taisha Auguste SLP 06/06/2025 4:33 PM Speech-Language Pathology: Videofluoroscopic Study of Swallow (VFSS/MBS) HPI/PMH 80 y.o. 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 Plan ASSISTANT PROFESSOR OF MUSIC Frequency of Services during current admission: Discharge from this Service ASSISTANT PROFESSOR OF MUSIC Recommendation (Add'l Services): No further ASSISTANT PROFESSOR OF MUSIC indicated Next Visit Plan: No further ST warranted Additional Referrals: N/A Discharge Summary Statement If this is the last swallow therapy visit, this serves as the discharge summary. us Lukas Paredes MD ASSISTANT PROFESSOR OF MUSIC ORDERABLES Final Res ult * ASSISTANT PROFESSOR OF MUSIC Evaluation and Treatment (06/06/2025 3:30 PM CDT) Narrative Taisha Auguste, JOE - 06/06/2025 3:30 PM CDT Taisha Auguste SLP 06/06/2025 4:33 PM Speech-Language Pathology: Videofluoroscopic Study of Swallow (VFSS/MBS) HPI/PMH 80 y.o. 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 Plan ASSISTANT PROFESSOR OF MUSIC Frequency of Services during current admission: Discharge from this Service ASSISTANT PROFESSOR OF MUSIC Recommendation (Add'l Services): No further ASSISTANT PROFESSOR OF MUSIC indicated Next Visit Plan: No further ST warranted Additional Referrals: N/A Discharge Summary Statement If this is the last swallow therapy visit, this serves as the discharge summary. us Keith Alexander MD ASSISTANT PROFESSOR OF MUSIC ORDERABLES Final Resu lt * TRANSTHORACIC ECHO (TTE) COMPLETE W DOPPLER/CF W CONTRAST (06/06/2025 12:04 PM CDT) EF Mod BP 55 % CONS SCIMAGE Anatomical Region Laterality Modality Ultrasound 06/06/2025 11:1 7 AM CDT Narrative 06/06/2025 1:37 PM CDT [facility] Card[facility] [place] [address] Transthoracic Echocardiographic Report Patient Name: ELMER LÓPEZ R : 1945 (80y 3m) Gender: M Study Date: 06/06/2025 11:17:38 AM Ht(Inch): 71 Wt(Lb): 169.97 BSA: 1.97 Security Guard Supervisor: Estrellita Carrero RDCS Location: [id number] Order Provider: DIANNA ROOT Heart Rate: 80 [...] Procedure Note Nava Morales MD - 06/06/2025 [facility] [place] [address] Transthoracic Echocardiographic Report Patient Name: ELMER LÓPEZEmilia : 1945 (80y 3m) Gender: M Study Date: 06/06/2025 11:17:38 AM Ht(Inch): 71 Wt(Lb): 169.97 BSA: 1.97 Security Guard Supervisor: Estrellita Carrero RDCS Location: [id number] Order Provider:DIANNA ROOT Heart Rate: 80 BMI: [...] of Race in Diagnosing Kidney Disease, JASN 2021). The CKD-EPI equation should not be used for patients with unstable renal function and has not been validated in children and those over 70. Current interpretive data was last reviewed 2021. Blood 06/05/2025 10:5 8 PM CDT 06/06/2025 12:38 AM CDT Dianna Root MD LAB BLOOD ORDERABLES Final Resu lt [facility] Department [place] [address] * (ABNORMAL) Differential, auto (06/05/2025 10:58 PM CDT) Neutrophil abs 4.68 1.50 - 6.50 K/cumm Imm gran abs 0.08 0.00 - 0.10 K/cumm [facility] Lymphocyte abs 1.24 0.80 - 3.30 K/cumm [facility] Monocyte abs 0.96(H) 0.20 - 0.80 K/cumm [facility] Eosinophil abs 0.50 0.00 - 0.50 K/cumm [facility] Basophil abs 0.03 0.00 - 0.10 K/cumm [facility] Neutrophil pct 62.4 % [facility] Comment: Interpretive Data Percent cell count reference ranges are not reported, since discordance with absolute values may lead to misinterpretation of CBC data. Current Interpretive Data was last revised on 2018. Imm gran pct 1.1 % [facility] Comment: Interpretive Data Percent cell count reference ranges are not reported, since discordance with absolute values may lead to misinterpretation of CBC data. Current Interpretive Data was last revised on 2018. Lymphocyte pct 16.6 % [facility] Comment: Interpretive Data Percent cell count reference ranges are not reported, since discordance with absolute values may lead to misinterpretation of CBC data. Current Interpretive Data was last revised on 2018. Monocyte pct 12.8 % [facility] Comment: Interpretive Data Percent cell count reference ranges are not reported, since discordance with absolute values may lead to misinterpretation of CBC data. Current Interpretive Data was last revised on 2018. Eosinophil pct 6.7 % [facility] Comment: Interpretive Data Percent cell count reference ranges are not reported, since discordance with absolute values may lead to misinterpretation of CBC data. Current Interpretive Data was last revised on 2018. Basophil pct 0.4 % [facility] Comment: Interpretive Data Percent cell count reference ranges are not reported, since discordance with absolute values may lead to misinterpretation of CBC data. Current Interpretive Data was last revised on 2018. Blood 06/05/2025 10:5 8 PM CDT 06/06/2025 12:50 AM CDT us Dianna Root MD LAB BLOOD ORDERABLES Final Resu lt [facility] [place] [address] * (ABNORMAL) CBC with auto differential (06/05/2025 10:58 PM CDT) WBC 7.49 3.80 - 9.90 K/cumm Hgb 8.4(L) 13.0 - 17.5 g/dL [facility] Hct 26.6(L) 38.9 - 50.3 % [facility] Plt 233 150 - 400 K/cumm [facility] MPV 10.9 9.1 - 12.3 fL [facility] RBC 2.93(L) 4.30 - 5.80 M/cumm [facility] MCV 90.8 81.3 - 96.4 fL [facility] MCH 28.7 27.1 - 33.3 pg [facility] MCHC 31.6(L) 32.3 - 35.7 g/dL [facility] RDW CV 15.3(H) 11.1 - 14.9 % [facility] RDW SD 51.3(H) 35.7 - 48.1 fL [facility] NRBC abs 0.00 0.00 - 0.01 K/cumm [facility] Blood 06/05/2025 10:5 8 PM CDT 06/06/2025 12:50 AM CDT Dianna Root MD LAB BLOOD ORDERABLES Final Resu lt Performing Organization Address [facility] de Phone Number [facility] [place] [address] * (ABNORMAL) Protime-INR (06/05/2025 10:58 PM CDT) PT 18.5(H) 9.7 - 13.0 sec INR 1.69(H) 0.90 - 1.20 [facility] Comment: Interpretive data Oral anticoagulant [...] ORDERABLES Final Resu lt Performing Organization Address [facility] de Phone Number [facility] Department [place] [address] * (ABNORMAL) Comprehensive metabolic panel (06/05/2025 10:58 PM CDT) Sodium 138 135 - 145 mmol/L Potassium, pl 4.4 3.3 - 4.9 mmol/L [facility] Chloride 98 97 - 110 mmol/L [facility] CO2 32 22 - 32 mmol/L [facility] Anion gap 8 2 - 15 mmol/L [facility] BUN 22 6 - 25 mg/dL [facility] Creatinine 1.02 0.80 - 1.30 mg/dL [facility] Glucose 107 70 - 199 mg/dL [facility] Comment: Interpretive Data Fasting glucose [...] 2022. Calcium 9.0 8.5 - 10.3 mg/dL [facility] Bilirubin, total 0.2 0.1 - 1.2 mg/dL [facility] Protein, pl 6.2(L) 6.5 - 8.5 g/dL [facility] Albumin 2.9(L) 3.5 - 5.0 g/dL [facility] Alk phos 192(H) 40 - 130 Units/L [facility] ALT 20 7 - 55 Units/L [facility] AST 38 10 - 50 Units/L [facility] Blood 06/05/2025 10:5 8 PM CDT 06/06/2025 12:38 AM CDT Dianna Root MD LAB BLOOD ORDERABLES Final Resu lt [facility] [place] [address] * Pneumonia PCR Sputum, induced (06/05/2025 4:53 AM CDT) C. pneumoniae DNA Not Detected Not Detected Legionella pneumophila DNA Not Detected Not Detected [facility] M. pneumoniae DNA Not Detected Not Detected [facility] Adenovirus DNA Not Detected Not Detected [facility] Coronavirus (229E, OC43, HKU1, NL63) RNA Not Detected Not Detected [facility] Metapneumovirus RNA Not Detected Not Detected [facility] Rhinovirus/Enterov irus RNA Not Detected Not Detected [facility] Influenza A RNA Not Detected Not Detected [facility] Influenza B RNA Not Detected Not Detected [facility] Parainfluenza virus (1-4) RNA Not Detected Not Detected [facility] RSV RNA Not Detected Not Detected [facility] Sputum, induced 06/05/2025 4 :53 AM CDT 06/05/2025 7:31 AM CDT Narrative [facility] - 06/05/2025 8:59 AM CDT [employer] [...] of this assay have been determined by [facility]. Current interpretive data was last revised on 2025. Keith Alexander MD LAB MICROBIOLOGY - GENERAL ORDERABLES Final Result [facility] [place] [address] * (ABNORMAL) Pneumonia PCR with aerobic culture and Gram stain Sputum, induced (06/05/2025 4:53 AM CDT) Direct Specimen Exam Molecular Analysis: 10^6 copies/mL Pseudomonas aeruginosa Correlation of molecular analysis with final culture results is recommended. Direct Specimen Exam Stain: Moderate polymorphonuclear leukocytes seen. Few squamous epithelial cells seen. Few mixed bacterial anahi seen on Gram stain. [facility] Report Final Report: Growth indicates upper respiratory anahi. (.) [facility] Organism GROWTH INDICATES UPPER RESPIRATORY ANAHI. [facility] Sputum, induced 06/05/2025 4 :53 AM CDT 06/05/2025 6:28 AM CDT Narrative [facility] - 06/07/2025 1:16 PM CDT When rapid molecular testing results are reported, testing completed using the [employer] FilmArray Pneumonia Panel. This molecular assay detects: [...] performance characteristics have been confirmed by the [facility]. The performance of the FilmArray Pneumonia Panel has not been established for monitoring treatment of infection and bacterial nucleic acids may persist independent of organism viability. Keith Alexander MD LAB MICROBIOLOGY - GENERAL ORDERABLES Final Result [facility] Department [place] [address] * Mycobacterium tuberculosis PCR Sputum, induced (06/05/2025 4:53 AM CDT) Report Final Report: Target not detected Organism TARGET NOT DETECTED ANGELLA EBONY Sputum, induced 06/05/2025 4 :53 AM CDT 06/05/2025 6:28 AM CDT Narrative ANGELLA SALMON - 06/05/2025 1:24 PM CDT 1. Nucleic acid amplification for detection of Mycobacterium tuberculosis complex is performed using the [employer] GeneXpert MTB/RIF assay. This assay has been approved by the [place] Food and Drug administration for detection of M. tuberculosis in sputum samples. The performance characteristics of this test have been verified by the [facility] laboratory for sputum samples and lower [...] interpretive data was last revised on 2014. us Keith Alexander MD LAB MICROBIOLOGY - GENERAL ORDERABLES Final Result ANGELLA BECK [facility] [place] [address] * Infection Prevention MRSA Only (Staphylococcus aureus) Culture Nasal (06/05/2025 4:50 AM CDT) Report Final Report: Negative Nasal 06/05/2025 4:50 AM CDT 06/05/2025 6:40 AM CDT Narrative ANGELLA BECK - 06/06/2025 8:37 AM CDT Testing performed by [facility] ([phone]). Keith Alexander MD LAB MICROBIOLOGY - GENERAL ORDERABLES Final Result Performing Organization Address [facility] de Phone Number [facility] [place] [address] * TERRA ab ql w/rflx to TERRA qn (06/04/2025 10:45 PM CDT) TERRA Negative Comment: Interpretive Data Normal range for TERRA Qualitative Antibody = Negative. 1. TERRA is performed using indirect immunofluorescence against HEp-2 cells 2. TERRA titers are performed on all positive qualitative results. 3. A significantly positive TERAR result is defined as a positive nuclear [...] BLOOD ORDERABLES Final Result Performing Organization Address [facility] de Phone Number [facility] Department [place] [address] * eGFR (06/04/2025 10:45 PM CDT) eGFR [...] MD LAB BLOOD ORDERABLES Final Resu lt [facility] [place] [address] * (ABNORMAL) Differential, auto (06/04/2025 10:45 PM CDT) Neutrophil abs 6.47 1.50 - 6.50 K/cumm Imm gran abs 0.08 0.00 - 0.10 K/cumm [facility] Lymphocyte abs 0.89 0.80 - 3.30 K/cumm [facility] Monocyte abs 1.04(H) 0.20 - 0.80 K/cumm [facility] Eosinophil abs 0.38 0.00 - 0.50 K/cumm [facility] Basophil abs 0.03 0.00 - 0.10 K/cumm [facility] Neutrophil pct 72.8 % [facility] Comment: Interpretive Data Percent cell count reference ranges are not reported, since discordance with absolute values may lead to misinterpretation of CBC data. Current Interpretive Data was last revised on 2018. Imm gran pct 0.9 % [facility] Comment: Interpretive Data Percent cell count reference ranges are not reported, since discordance with absolute values may lead to misinterpretation of CBC data. Current Interpretive Data was last revised on 2018. Lymphocyte pct 10.0 % [facility] Comment: Interpretive Data Percent cell count reference ranges are not reported, since discordance with absolute values may lead to misinterpretation of CBC data. Current Interpretive Data was last revised on 2018. Monocyte pct 11.7 % [facility] Comment: Interpretive Data Percent cell count reference ranges are not reported, since discordance with absolute values may lead to misinterpretation of CBC data. Current Interpretive Data was last revised on 2018. Eosinophil pct 4.3 % [facility] Comment: Interpretive Data Percent cell count reference ranges are not reported, since discordance with absolute values may lead to misinterpretation of CBC data. Current Interpretive Data was last revised on 2018. Basophil pct 0.3 % [facility] Comment: Interpretive Data Percent cell count reference ranges are not reported, since discordance with absolute values may lead to misinterpretation of CBC data. Current Interpretive Data was last revised on 2018. Blood 06/04/2025 10:4 5 PM CDT 06/05/2025 12:39 AM CDT us Dianna Root MD LAB BLOOD ORDERABLES Final Resu lt Performing Organization Address City/[facility]/ZIP Co de Phone Number [facility] Department [place] [employer] [place] [address] * (ABNORMAL) Iron profile w/ IBC (06/04/2025 10:45 PM CDT) Iron 24(L) 50 - 150 mcg/dL TIBC 171(L) 250 - 400 mcg/dL [facility] Transferrin saturation 14(L) 20 - 50 % [facility] Blood 06/04/2025 10:4 5 PM CDT 06/05/2025 12:38 AM CDT us Keith Alexander MD LAB BLOOD ORDERABLES Final Result [facility] Department [place] [address] * HIV 1/2 Antibody plus p24 Antigen Blood (06/04/2025 10:45 PM CDT) [facility] HIV 1/2 ab + p24 ag Nonreactive Nonreactive Comment:Nonreactive for HIV- 1 antigen and HIV-1/HIV-2 antibodies. No laboratory evidence of HIV infection. If acute HIV infection is suspected, consider testing for HIV-1 RNA. Current interpretive data was last revised on 22. Blood 06/04/2025 10:4 5 PM CDT 06/05/2025 12:39 AM CDT Keith Alexander MD LAB MICROBIOLOGY - GENERAL ORDERABLES Final Result [facility] Department [place] [address] * Anti-Neutrophilic Cytoplasmic Antibody (ANCA) with Reflex to MPO and PR3 Abs (06/04/2025 10:45 PM CDT) [facility] ANCA Negative Blood 06/04/2025 10:4 5 PM CDT 06/05/2025 12:39 AM CDT Keith Alexander MD LAB BLOOD ORDERABLES Final Result Performing Organization Address City/[facility] Co de Phone Number [facility] Department [place] [address] * (ABNORMAL) CBC with auto differential (06/04/2025 10:45 PM CDT) [facility] WBC 8.89 3.80 - 9.90 K/cumm Hgb 9.0(L) 13.0 - 17.5 g/dL [facility] Hct 28.4(L) 38.9 - 50.3 % [facility] Plt 226 150 - 400 K/cumm [facility] MPV 10.9 9.1 - 12.3 fL [facility] RBC 3.14(L) 4.30 - 5.80 M/cumm [facility] MCV 90.4 81.3 - 96.4 fL [facility] MCH 28.7 27.1 - 33.3 pg [facility] MCHC 31.7(L) 32.3 - 35.7 g/dL [facility] RDW CV 15.2(H) 11.1 - 14.9 % [facility] RDW SD 50.3(H) 35.7 - 48.1 fL [facility] NRBC abs 0.00 0.00 - 0.01 K/cumm [facility] Blood 06/04/2025 10:4 5 PM CDT 06/05/2025 12:39 AM CDT us Dianna Root MD LAB BLOOD ORDERABLES Final Resu lt Performing Organization Address City/[facility]/ZIP Co de Phone Number [facility] Department [place] [address] * RPR Blood (06/04/2025 10:45 PM CDT) RPR Nonreactive Nonreactive Blood 06/04/2025 10:4 5 PM CDT 06/05/2025 12:39 AM CDT us Keith Alexander MD LAB MICROBIOLOGY - GENERAL ORDERABLES Final Result Performing Organization Address [facility] de Phone Number [facility] Department [place] [address] * (ABNORMAL) Protime-INR (06/04/2025 10:45 PM CDT) PT 19.6(H) 9.7 - 13.0 sec INR 1.79(H) 0.90 - 1.20 [facility] Comment: Interpretive data Oral anticoagulant therapeutic ranges: Venous thromboembolism prophylaxis or treatment: 2.0-3.0 CARDIOLOGY Standard range: 2.0-3.0 High-intensity range: 2.5-3.5 Refer to indication-specific guidelines for appropriate target ranges for prosthetic heart valve replacement. Current interpretive data was last revised on 2019. Blood 06/04/2025 10:4 5 PM CDT 06/05/2025 12:45 AM CDT Dianna Root MD LAB BLOOD ORDERABLES Final Resu lt [facility] Department [place] [address] * Rheumatoid factor (06/04/2025 10:45 PM CDT) Pathologist [facility] Rheumatoid factor, quant 12.0 0.1 - 15.0 IUnits/mL Blood 06/04/2025 10:4 5 PM CDT 06/05/2025 12:38 AM CDT Keith Alexander MD LAB BLOOD ORDERABLES Final Result Performing Organization Address City/[facility] Co de Phone Number [facility] Department [place] [address] * (ABNORMAL) Protein electrophoresis with reflex, serum with interpretation (06/04/2025 10:45 PM CDT) [facility] Protein, sr 6.0(L) 6.2 - 8.2 g/dL Albumin 2.5(L) 3.2 - 5.0 g/dL [facility] Alpha-1 globulin 0.7(H) 0.2 - 0.4 g/dL [facility] Alpha-2 globulin 1.2(H) 0.5 - 1.0 g/dL [facility] Beta-1 globulin 0.4 0.3 - 0.6 g/dL [facility] Beta-2 globulin 0.5 0.2 - 0.6 g/dL [facility] Gamma globulin 0.7 0.5 - 1.7 g/dL [facility] SPEP interp Please see comment [facility] Comment: No apparent monoclonal peak Reviewed and signed by Serenity Wiseman MD, PhD 06/06/2025 Blood 06/04/2025 10:4 5 PM CDT 06/05/2025 12:38 AM CDT Keith Alexander MD LAB BLOOD ORDERABLES Final Result Performing Organization Address [facility] Co de Phone Number [facility] [place] [address] * (ABNORMAL) Phosphorus (06/04/2025 10:45 PM CDT) Phosphorus, pl 2.2(L) 2.3 - 4.5 mg/dL Blood 06/04/2025 10:4 5 PM CDT 06/05/2025 12:38 AM CDT Dianna Root MD LAB BLOOD ORDERABLES Final Resu lt Performing Organization Address [facility] de Phone Number [facility] [place] [address] * Magnesium (06/04/2025 10:45 PM CDT) Magnesium 1.7 1.4 - 2.5 mg/dL Blood 06/04/2025 10:4 5 PM CDT 06/05/2025 12:38 AM CDT Dianna Root MD LAB BLOOD ORDERABLES Final Resu lt Performing Organization Address [facility] Co de Phone Number [facility] [place] [address] * Folate (06/04/2025 10:45 PM CDT) Folic acid 7.0 >=5.0 ng/mL Blood 06/04/2025 10:4 5 PM CDT 06/05/2025 12:38 AM CDT Keith Alexander MD LAB BLOOD ORDERABLES Final Result Performing Organization Address City/[facility] Co de Phone Number [facility] Department [place] [address] * Ferritin (06/04/2025 10:45 PM CDT) [facility] Ferritin 269 30 - 400 ng/mL Blood 06/04/2025 10:4 5 PM CDT 06/05/2025 12:38 AM CDT Keith Alexander MD LAB BLOOD ORDERABLES Final Result Performing Organization Address [facility] de Phone Number [facility] [place] [address] * Vitamin B12 (06/04/2025 10:45 PM CDT) [facility] Vitamin B12 491 230 - 1,250 pg/mL Blood 06/04/2025 10:4 5 PM CDT 06/05/2025 12:38 AM CDT Keith Alexander MD LAB BLOOD ORDERABLES Final Result Performing Organization Address [facility] de Phone Number [facility] Department [place] [address] * (ABNORMAL) Comprehensive metabolic panel (06/04/2025 10:45 PM CDT) [facility] Sodium 138 135 - 145 mmol/L Potassium, pl 4.7 3.3 - 4.9 mmol/L [facility] Chloride 100 97 - 110 mmol/L [facility] CO2 31 22 - 32 mmol/L [facility] Anion gap 7 2 - 15 mmol/L [facility] BUN 21 6 - 25 mg/dL [facility] Creatinine 1.05 0.80 - 1.30 mg/dL [facility] Glucose 107 70 - 199 mg/dL [facility] Comment: Interpretive Data Fasting glucose [...] 2022. Calcium 9.3 8.5 - 10.3 mg/dL [facility] Bilirubin, total 0.2 0.1 - 1.2 mg/dL [facility] Protein, pl 6.7 6.5 - 8.5 g/dL [facility] Albumin 3.1(L) 3.5 - 5.0 g/dL [facility] Alk phos 222(H) 40 - 130 Units/L [facility] ALT 23 7 - 55 Units/L [facility] AST 44 10 - 50 Units/L [facility] Blood 06/04/2025 10:4 5 PM CDT 06/05/2025 12:38 AM CDT us Dianna Root MD LAB BLOOD ORDERABLES Final Resu lt [facility] Department [place] [address] * Histoplasma Antigen Urine (06/04/2025 6:49 PM CDT) Histo Ag Ur result None Detected None Detected Histo Ag Ur interp Negative Negative [facility] Comment: Result Interpretation: Reference interval: None Detected Results reported as ng/mL in 0.20 - 20.00 ng/mL range Results above 20.00 ng/mL are reported as 'Positive, Above the Limit of Quantification' Testing Performed by: [employer] [facility], [address] [place] [address], [place] [id number]. This test was developed and its performance characteristics determined by [employer] [facility]. It has not been cleared or approved [...] MICROBIOLOGY - GENERAL ORDERABLES Final Result [facility] [place] [address] * CT Chest High Resolution WO Contrast [...] PM CDT 06/04/2025 3:19 PM CDT Narrative [facility] - 06/05/2025 4:35 PM CDT Testing performed by [facility] ([phone]). Keith Alexander MD LAB MICROBIOLOGY - GENERAL ORDERABLES Final Result [facility] [place] [address] * Coccidioides antibody screen w/reflex Blood (06/04/2025 10:50 AM CDT) Coccidioides ab screen, ser Reactive Negative [facility] Comment: Confirmatory testing by complement fixation and immunodiffusion has been ordered. ADDITIONAL INFORMATION This test has been modified from the environmental solutions engineer's instructions. Its performance characteristics were determined by [facility] in a manner consistent with CLIA requirements. This test has not been cleared or approved by the U.S. Food and Drug Administration. Test Performed by: [facility] [place] [address] Domestic Cleaner: Angeli Harper Ph.D.; CLIA# [id number] Blood 06/04/2025 10:5 0 AM CDT 06/04/2025 12:31 PM CDT Keith Alexander MD LAB MICROBIOLOGY - GENERAL ORDERABLES Final Result Performing Organization Address [facility] de Phone Number [facility] [place] [address] [facility] * Histoplasma Antibody Blood (06/04/2025 10:50 AM CDT) Histoplasma Ab, yeast CF Negative Negative [facility] Histoplasma Ab, Immunodiffusion Negative Negative [facility] Comment: A negative complement fixation and immunodiffusion (CF/ID) result does not exclude the diagnosis of histoplasmosis. Repeat testing by CF/ID in 1-2 weeks if clinically indicated. Test Performed by: [facility] [facility] [place] [id number] Domestic Cleaner: Angeli Harper Ph.D.; CLIA# [id number] Blood 06/04/2025 10:5 0 AM CDT 06/04/2025 1:57 PM CDT Keith Alexander MD LAB MICROBIOLOGY - GENERAL ORDERABLES Final Result Performing Organization Address [facility] de Phone Number [facility] [place] [address] [facility] * Blastomyces antibody, EIA, serum Blood (06/04/2025 10:50 AM CDT) Blastomyces Antibody Negative Negative [facility] Comment: A single negative result does not exclude the diagnosis of blastomycosis. Repeat testing on a new sample in 7-14 days if clinically indicated. Test Performed by: [place] [address] Domestic Cleaner: Angeli Harper Ph.D.; CLIA# [id number] Blood 06/04/2025 10:5 0 AM CDT 06/04/2025 1:57 PM CDT Keith Alexander MD LAB MICROBIOLOGY - GENERAL ORDERABLES Final Result ANGELLA [facility] [place] [address] [facility] * Coccidioides antibodies (06/04/2025 10:50 AM CDT) Coccidioides ab comp fix Negative Negative [facility] Coccidioides IgG ImmDiff Negative Negative [facility] Coccidioides IgM ImmDiff Negative Negative [facility] Comment: The EIA may be reactive prior to complement fixation and immunodiffusion (CompF/ImmDiff), or may be falsely-reactive. Repeat testing by CompF/ImmDiff in 2-3 weeks if clinically indicated. Test Performed by: [place] [address] Domestic Cleaner: Angeli Harper Ph.D.; CLIA# [id number] Blood 06/04/2025 10:5 0 AM CDT 06/04/2025 12:31 PM CDT Keith Alexander MD LAB BLOOD ORDERABLES Final Result Performing Organization Address City/[facility]/ZIP Co de Phone Number ANGELLA [facility] [place] [address] [facility] * Cryptococcal Antigen, Serum Blood (06/04/2025 10:50 AM CDT) Cryptococcus ag, Serum Negative Negative Comment: The [...] GENERAL ORDERABLES Final Result Performing Organization Address City/[facility] Co de Phone Number ANGELLA [facility] [place] [place] [address] * Aspergillus galactomannan antigen Blood (06/04/2025 10:50 AM CDT) Pathologist [facility] Aspergillus galactomannan Ag <0.500 <0.5 Index [facility] Comment: ADDITIONAL INFORMATION This is a qualitative test and the resulted index value is not indicative of disease severity. Serial testing is recommended for patients at high risk for invasive aspergillosis. This assay was performed using the FDA-cleared [employer] Aspergillus Galactomannan EIA. Test Performed by: [address] [address] Domestic Cleaner: Angeli Harper Ph.D.; CLIA# [id number] Blood 06/04/2025 10:5 0 AM CDT 06/04/2025 12:42 PM CDT Keith Alexander MD LAB MICROBIOLOGY - GENERAL ORDERABLES Final Result Performing Organization Address City/[facility]/ZIP Co de Phone Number [facility] [place] [address] [facility] * (ABNORMAL) Blood gas, venous (06/04/2025 10:50 AM CDT) pH, Venous 7.37 7.32 - 7.43 PCO2, Venous 55(H) 40 - 50 mmHg [facility] PO2, Venous 36 mmHg [facility] Comment: Interpretive Data No Reference Range Established Current Interpretive Data was last revised on 2018. HCO3 Venous, Calculated 33(H) 20 - 30 mmol/L [facility] BE, venous 7 mmol/L [facility] Comment: Interpretive Data No Reference Range Established Current Interpretive Data was last revised on 2018. Blood 06/04/2025 10:5 0 AM CDT 06/04/2025 12:25 PM CDT us Keith Alexander MD LAB BLOOD ORDERABLES Final Result [facility] [place] [address] * XR Chest 1 View (06/04/2025 6:30 [...] MD LAB BLOOD ORDERABLES Final Resu lt [facility] [place] [address] * (ABNORMAL) Differential, auto (06/04/2025 4:35 AM CDT) Neutrophil abs 6.28 1.50 - 6.50 K/cumm Imm gran abs 0.07 0.00 - 0.10 K/cumm [facility] Lymphocyte abs 0.88 0.80 - 3.30 K/cumm [facility] Monocyte abs 1.13(H) 0.20 - 0.80 K/cumm [facility] Eosinophil abs 0.47 0.00 - 0.50 K/cumm [facility] Basophil abs 0.02 0.00 - 0.10 K/cumm [facility] Neutrophil pct 71.0 % [facility] Comment: Interpretive Data Percent cell count reference ranges are not reported, since discordance with absolute values may lead to misinterpretation of CBC data. Current Interpretive Data was last revised on 2018. Imm gran pct 0.8 % [facility] Comment: Interpretive Data Percent cell count reference ranges are not reported, since discordance with absolute values may lead to misinterpretation of CBC data. Current Interpretive Data was last revised on 2018. Lymphocyte pct 9.9 % [facility] Comment: Interpretive Data Percent cell count reference ranges are not reported, since discordance with absolute values may lead to misinterpretation of CBC data. Current Interpretive Data was last revised on 2018. Monocyte pct 12.8 % [facility] Comment: Interpretive Data Percent cell count reference ranges are not reported, since discordance with absolute values may lead to misinterpretation of CBC data. Current Interpretive Data was last revised on 2018. Eosinophil pct 5.3 % [facility] Comment: Interpretive Data Percent cell count reference ranges are not reported, since discordance with absolute values may lead to misinterpretation of CBC data. Current Interpretive Data was last revised on 2018. Basophil pct 0.2 % [facility] Comment: Interpretive Data Percent cell count reference ranges are not reported, since discordance with absolute values may lead to misinterpretation of CBC data. Current Interpretive Data was last revised on 2018. Blood 06/04/2025 4:35 AM CDT 06/04/2025 5:02 AM CDT us Dianna Root MD LAB BLOOD ORDERABLES Final Resu lt [facility] [place] [address] * (ABNORMAL) Pro B-type natriuretic peptide (06/04/2025 4:35 AM CDT) Pathologist [facility] NT-proBNP 486(H) <=450 pg/mL Comment: Interpretive Comments: [...] as advanced age. - References: 1. Milady JL et.al. Eur Heart J. 2006:27:330-337. 2. Ousmane RW, Arianna QUJIANO. J. AM Eleanor Cardiol: Cardiovasc Imag. 2009;2: 216- 225. Interpretive Data Last Revised Date: 2018. Blood 06/04/2025 4:35 AM CDT 06/04/2025 5:01 AM CDT us Dianna Root MD LAB BLOOD ORDERABLES Final Resu lt [facility] [place] [address] * (ABNORMAL) CBC with auto differential (06/04/2025 4:35 AM CDT) Pathologist [facility] WBC 8.85 3.80 - 9.90 K/cumm Hgb 8.3(L) 13.0 - 17.5 g/dL [facility] Hct 26.7(L) 38.9 - 50.3 % [facility] Plt 219 150 - 400 K/cumm [facility] MPV 10.3 9.1 - 12.3 fL [facility] RBC 2.94(L) 4.30 - 5.80 M/cumm [facility] MCV 90.8 81.3 - 96.4 fL [facility] MCH 28.2 27.1 - 33.3 pg [facility] MCHC 31.1(L) 32.3 - 35.7 g/dL [facility] RDW CV 15.3(H) 11.1 - 14.9 % [facility] RDW SD 51.0(H) 35.7 - 48.1 fL [facility] NRBC abs 0.00 0.00 - 0.01 K/cumm [facility] Blood 06/04/2025 4:35 AM CDT 06/04/2025 5:02 AM CDT us Dianna Root MD LAB BLOOD ORDERABLES Final Resu lt [facility] [place] [address] * (ABNORMAL) Protime-INR (06/04/2025 4:35 AM CDT) PT 20.1(H) 9.7 - 13.0 sec INR 1.84(H) 0.90 - 1.20 [facility] Comment: Interpretive data Oral anticoagulant [...] ORDERABLES Final Resu lt Performing Organization Address [facility]/ZIP Co de Phone Number [facility] [place] [place] [address] * Phosphorus (06/04/2025 4:35 AM CDT) Pathologist [facility] Phosphorus, pl 2.6 2.3 - 4.5 mg/dL Blood 06/04/2025 4:35 AM CDT 06/04/2025 5:01 AM CDT Dianna Root MD LAB BLOOD ORDERABLES Final Resu lt Performing Organization Address [facility] Co de Phone Number [facility] [place] [employer] [place] [address] * Magnesium (06/04/2025 4:35 AM CDT) [facility] Magnesium 1.8 1.4 - 2.5 mg/dL Blood 06/04/2025 4:35 AM CDT 06/04/2025 5:01 AM CDT Dianna Root MD LAB BLOOD ORDERABLES Final Resu lt Performing Organization Address [facility] Co de Phone Number [facility] [place] [address] * (ABNORMAL) Comprehensive metabolic panel (06/04/2025 4:35 AM CDT) [facility] Sodium 135 135 - 145 mmol/L Potassium, pl 4.4 3.3 - 4.9 mmol/L [facility] Chloride 99 97 - 110 mmol/L [facility] CO2 29 22 - 32 mmol/L [facility] Anion gap 7 2 - 15 mmol/L [facility] BUN 23 6 - 25 mg/dL [facility] Creatinine 1.19 0.80 - 1.30 mg/dL [facility] Glucose 109 70 - 199 mg/dL [facility] Comment: Interpretive Data Fasting glucose [...] Calcium 9.3 8.5 - 10.3 mg/dL [facility] Bilirubin, total 0.3 0.1 - 1.2 mg/dL [facility] Protein, pl 6.6 6.5 - 8.5 g/dL [facility] Albumin 2.9(L) 3.5 - 5.0 g/dL [facility] Alk phos 228(H) 40 - 130 Units/L [facility] ALT 20 7 - 55 Units/L [facility] AST 42 10 - 50 Units/L [facility] Blood 06/04/2025 4:35 AM CDT 06/04/2025 5:01 AM CDT us Dianna Root MD LAB BLOOD ORDERABLES Final Resu lt [facility] [place] [address] * Legionella antigen Urine (06/04/2025 3:22 AM CDT) Legionella Ag Negative Negative Comment: Interpretive Data This test detects only Legionella pneumophila serogroup 1 antigen. Testing performed by [facility] ([phone]). Current interpretive data was last revised on 2020. Urine 06/04/2025 3:22 AM CDT 06/04/2025 5:30 AM CDT us Dianna Root MD LAB MICROBIOLOGY - GENERAL [facility] Final Result [facility] [place] [address] * ECG 12 lead (06/04/2025 3:21 AM CDT) [facility] Ventricular Rate EKG/Min 74 BPM [facility] Atrial Rate 74 BPM [facility] NC-Interval (MSEC) 196 ms [facility] QRS-Interval (MSEC) 114 ms [facility] QT-Interval (MSEC) 406 ms [facility] QTc 450 ms [facility] P [place] 34 degrees [facility] R [place] -19 degrees [facility] T [place] 16 degrees [facility] Diagnosis Normal sinus rhythm Incomplete right bundle branch block Borderline ECG No previous ECGs available Confirmed by SERENITY ARCHULETA M.D ([id number]) on 06/05/2025 8:59:03 AM [facility] 06/04/2025 3:21 AM CDT 06/05/2025 8:59 AM CDT Dianna Root MD ECG ORDERABLES Final Result [facility] * Respiratory pathogen panel Nasopharyngeal (06/04/2025 2:58 AM CDT) [facility] Influenza A RNA Not Detected Not Detected Influenza B RNA Not Detected Not Detected [facility] RSV RNA Not Detected Not Detected [facility] COVID-19 RNA Not Detected Not Detected [facility] Coronavirus 229E RNA Not Detected Not Detected [facility] Coronavirus HKU1 RNA Not Detected Not Detected [facility] Coronavirus NL63 RNA Not Detected Not Detected [facility] Coronavirus OC43 RNA Not Detected Not Detected [facility] Adenovirus DNA Not Detected Not Detected [facility] Metapneumovirus RNA Not Detected Not Detected [facility] Rhinovirus/Enterov irus RNA Not Detected Not Detected [facility] Parainfluenza 1 RNA Not Detected Not Detected [facility] Parainfluenza 2 RNA Not Detected Not Detected [facility] Parainfluenza 3 RNA Not Detected Not Detected [facility] Parainfluenza 4 RNA Not Detected Not Detected [facility] B. pertussis DNA Not Detected Not Detected [facility] B. parapertussis DNA Not Detected Not Detected [facility] C. pneumoniae DNA Not Detected Not Detected [facility] M. pneumoniae DNA Not Detected Not Detected [facility] Nasopharyngeal 06/04/2025 2: 58 AM CDT 06/04/2025 3:29 AM CDT Narrative [facility] - 06/04/2025 4:44 AM CDT Is the Patient experiencing symptoms consistent with COVID?->No Surveillance testing for transplant patient?->No Interpretive Data The ubigrate FilmArray Respiratory Panel (RP2.1) assay is a [...] assay has FDA clearance for testing of MUSIC SPECIALIST swabs. The performance of additional specimen types has been assessed by the performing laboratory. The performance characteristics of this assay have been determined by [facility]. Current interpretive data was last revised on 22. Dianna Root MD LAB MICROBIOLOGY - GENERAL [place] Final Result Performing Organization Address [facility] de Phone Number [facility] Department [place] [address] * MRSA Only (Staphylococcus aureus) Culture Nasal (06/04/2025 2:53 AM CDT) Report Final Report: Negative Nasal 06/04/2025 2:53 AM CDT 06/04/2025 3:29 AM CDT Narrative [facility] - 06/05/2025 6:58 AM CDT Testing performed by [facility] ([phone]). Dianna Root MD LAB MICROBIOLOGY - GENERAL ORDE [place] Final Result Performing Organization Address [facility] de Phone Number [facility] Department [place] [address] * Glucose, random (Outreach) (05/02/2025 10:25 AM [...] ORDERABLES F inal Result Performing Organization Address [facility]/ZIP Co de Phone Number ANGELLA [facility] [place] [employer] [place] [address] * (ABNORMAL) eGFR (05/02/2025 10:25 AM CDT) [...] ORDERABLES F inal Result Performing Organization Address [facility]/ZIP Co de Phone Number ANGELLA [facility] [place] [address] * (ABNORMAL) Differential, auto (05/02/2025 10:25 AM CDT) Neutrophil abs 6.97(H) 1.50 - 6.50 K/cumm Imm gran abs 0.13(H) 0.00 - 0.10 K/cumm [facility] Lymphocyte abs 1.24 0.80 - 3.30 K/cumm [facility] Monocyte abs 0.99(H) 0.20 - 0.80 K/cumm [facility] Eosinophil abs 0.52(H) 0.00 - 0.50 K/cumm [facility] Basophil abs 0.04 0.00 - 0.10 K[facility]cumm [facility] Neutrophil pct 70.5 % [facility] Comment: Interpretive Data Percent cell count reference ranges are not reported, since discordance with absolute values may lead to misinterpretation of CBC data. Current Interpretive Data was last revised on 2018. Imm gran pct 1.3 % [facility] Comment: Interpretive Data Percent cell count reference ranges are not reported, since discordance with absolute values may lead to misinterpretation of CBC data. Current Interpretive Data was last revised on 2018. Lymphocyte pct 12.5 % [facility] Comment: Interpretive Data Percent cell count reference ranges are not reported, since discordance with absolute values may lead to misinterpretation of CBC data. Current Interpretive Data was last revised on 2018. Monocyte pct 10.0 % [facility] Comment: Interpretive Data Percent cell count reference ranges are not reported, since discordance with absolute values may lead to misinterpretation of CBC data. Current Interpretive Data was last revised on 2018. Eosinophil pct 5.3 % [facility] Comment: Interpretive Data Percent cell count reference ranges are not reported, since discordance with absolute values may lead to misinterpretation of CBC data. Current Interpretive Data was last revised on 2018. Basophil pct 0.4 % [facility] Comment: Interpretive Data Percent cell count reference ranges are not reported, since discordance with absolute values may lead to misinterpretation of CBC data. Current Interpretive Data was last revised on 2018. Blood 05/02/2025 10:2 5 AM CDT 05/02/2025 2:09 PM CDT Gladys Larson MUSIC SPECIALIST LAB BLOOD ORDERABLES F inal Result Performing Organization Address City/[facility]/ZIP Co de Phone Number [facility] [place] [address] * (ABNORMAL) Comprehensive metabolic panel, without glucose (Outreach) (05/02/2025 10:25 AM CDT) Pathologist [facility] Sodium 134(L) 135 - 145 mmol/L Potassium, pl 5.8(H) 3.3 - 4.9 mmol/L [facility] Chloride 100 97 - 110 mmol/L [facility] CO2 27 22 - 32 mmol/L [facility] Anion gap 7 2 - 15 mmol/L [facility] BUN 21 6 - 25 mg/dL [facility] Creatinine 1.90(H) 0.80 - 1.30 mg/dL [facility] Calcium 9.6 8.5 - 10.3 mg/dL [facility] Protein, pl 7.5 6.5 - 8.5 g/dL [facility] Albumin 3.8 3.5 - 5.0 g/dL [facility] Bilirubin, total 0.2 0.1 - 1.2 mg/dL [facility] Alk phos 227(H) 40 - 130 Units/L [facility] AST 25 10 - 50 Units/L [facility] ALT 19 7 - 55 Units/L [facility] Blood 05/02/2025 10:2 5 AM CDT 05/02/2025 2:09 PM CDT Gladys Larson MUSIC SPECIALIST LAB BLOOD ORDERABLES F inal Result ANGELLA [facility] [place] [address] * (ABNORMAL) CBC with auto differential (05/02/2025 10:25 AM CDT) Pathologist [facility] WBC 9.89 3.80 - 9.90 K/cumm Hgb 10.0(L) 13.0 - 17.5 g/dL [facility] Hct 32.2(L) 38.9 - 50.3 % [facility] Plt 322 150 - 400 K/cumm [facility] MPV 11.1 9.1 - 12.3 fL [facility] RBC 3.41(L) 4.30 - 5.80 M/cumm [facility] MCV 94.4 81.3 - 96.4 fL [facility] MCH 29.3 27.1 - 33.3 pg [facility] MCHC 31.1(L) 32.3 - 35.7 g/dL [facility] RDW CV 14.3 11.1 - 14.9 % [facility] RDW SD 48.4(H) 35.7 - 48.1 fL [facility] NRBC abs 0.00 0.00 - 0.01 K/cumm [facility] Blood 05/02/2025 10:2 5 AM CDT 05/02/2025 2:09 PM CDT us Gladys Larson NP LAB BLOOD ORDERABLES F inal Result [facility] [place] [address] * CT Body Outside Consult (05/02/2025 10:24 [...] images may or may not represent the minto source data set and thus may contain changes that may lower the accuracy of this second-opinion interpretation. Electronically signed by: Adele Shipman M.D. Narrative 05/02/2025 10:38 AM CDT EXAMINATION: RADIOLOGY CONSULTATION ON OUTSIDE IMAGING STUDY STUDY INITIALLY PERFORMED: 04/26/2025 at [facility]. TYPE OF STUDY: Multiple CT images of [...] IMAGING STUDY STUDY INITIALLY PERFORMED: 04/26/2025 at [facility]. TYPE OF STUDY: Multiple CT images of [...] images may or may not represent the minto source data set and thus may contain changes that may lower the accuracy of this second-opinion interpretation. Electronically signed by: Adele Shipman M.D. Lukas Adams MD IMG CT PROCEDURES Final Resu lt * CT Body Outside Reference (05/02/2025 10:17 AM CDT) Impressions [facility] - 05/02/2025 10:17 AM CDT These images are for Reference purposes only and have not been reviewed by [facility] Radiology. There will be no report generated by a [facility] Radiologist. Narrative [facility] - 05/02/2025 10:17 AM CDT EXAMINATION: Images For Reference Purposes Only us Lukas Adams MD IMG CT PROCEDURES Final Resu lt [facility] from Last 3 Months Additional Health Concerns Infection Onset Date Last Indicated Tuberculosis (rule out) 06/04/2025 06/04/20 25 Insurance [facility] Address: [address] [address] [facility] Address: [address] [address] [place] [address] Advance Directives For more information, please contact: [phone] * Full Code (Latest Code Status on File) Date Activated Date Inactivated Comments 06/04/2025 2:17 AM 06/07/2025 7:14 PM Care Teams Law Firm Administrator Relationship Specialty Start Date End Date Naveed Mcintosh MD PCP - General Family Medicine 10/07/19 Salas Gottlieb MD [address] [place] [address] Referring Physician Critical Care Med 06/02/25
--- OUTSIDE RECORDS SUMMARY | 2025-07-18 07:47 | XMS_ITS | Encounter Summary ---
Author Organization [facility] Healthcare Address [address] [place] [address] Care Team Providers Care Tile Molder Hand Name Role Phone Naveed Mcintosh MD Primary Care Prov ider Salas Gottlieb MD Unavailable [phone] Yarelis Rachel [facility] Unavailable [phone] Encounter Details Date Type Department Care Team (Late st Contact Info) Description 02/25/2024 Orders Only [facility] Health Information Management [address] [place] [id number] Scanning, Provider Social History Tobacco Use Types Packs/Day Years Used Date Smoking Tobacco: Former Cigarettes 1.5 65 0 03/12/1957 - 09/19/2018 Smokeless Tobacco: Never Comments:Quit 08/2019 Alcohol Use Standard Drinks/Week Comments Not Currently 0 (1 standard drink = 0.6 oz pur e alcohol) Sex and Gender Information Value Date Recorded Sex Assigned at Not on file Legal Sex Male 9:37 AM BREAKFAST ATTENDANT Gender Identity Male 11/26/2019 3:10 PM BREAKFAST ATTENDANT Sexual Orientation Not on file documented as of this encounter Plan of Treatment Not on file documented as of this encounter Procedures Procedure Name Priority Date/Time Associated Diagnosis Comments SCAN - RADIOLOGY/IMAGING 02/25/2024 documented in this encounter Results * SCAN - RADIOLOGY/IMAGING (02/25/2024) Anatomical Region Laterality Modality Other us Provider Scanning Final Result documented in this encounter Visit Diagnoses Not on filedocumented in this encounter Additional Health Concerns Infection Onset Date Last Indicated Resolved Time Tuberculosis (rule out) 06/04/2025 06/04/2025 documented as of this encounter Care Teams Tile Molder Hand Relationship Specialty Start Date End Date Naveed Mcintosh MD PCP - General Family Medicine 10/07/19 Salas Gottlieb MD [address] [place] [address] Referring Physician Critical Care Med 06/02/25 Yarelis Rachel, DIRECTOR COST [address] [facility] ([facility]) Mailstop [phone] [place] [address] [facility] Outpatient Hydro Pneumatic Tester 06/08/25 06/25/25 documented as of this encounter
[2025-07-18 07:54] LABS: Hematocrit 29.3 % (42.0-52.0); Hemoglobin 8.7 g/dL (14.0-18.0); Immature Granulocyte Percent A 0.7 % (0-0.5); Lymphocytes Absolute Auto 0.40 K/mm3 (0.9-3.2); Mean Corpuscular HGB Conc 29.7 g/dl (32-36); Mean Corpuscular Hemoglobin 28.4 pg (26-34); Mean Corpuscular Volume 95.8 fl (80-100); Nucleated Red Blood Cells Absolute Auto 0.000 K/mm3 (0.0-0.012); Nucleated Red Blood Cells Perc 0.0 % (0.0-0.2); Platelet Count Result 201 k/mm3 (150-375); Red Blood Count 3.06 M/mm3 (4.6-6.20); White Blood Count 7.1 K/mm3 (4.5-10.0)
[2025-07-18 08:14] LABS: Anisocytosis 1+; Hypochromasia 1+
[2025-07-18 08:15] LABS: Schistocytes None Seen
[2025-07-18 08:21] LABS: Alanine Aminotransferase 31 U/L (6-50); Albumin Level 3.5 g/dL (3.5-5.1); Alkaline Phosphatase 108 U/L (38-126); Anion Gap 6 mmol/L (4-12); Aspartate Amino Transferase 35 U/L (17-59); Bilirubin,Total 0.6 mg/dL (0.2-1.3); Blood Urea Nitrogen 31 mg/dL (9-20); Calcium 9.2 mg/dL (8.4-10.2); Carbon Dioxide 32 mmol/L (22-30); Chloride 99 mmol/L (98-107); Estimated CRCL calculation 33 ml/min; Estimated Glomerular Filt Rate 39; Glucose 119 mg/dL (65-110); Potassium 4.4 mmol/L (3.4-5.0); Sodium 137 mmol/L (137-145); Total Protein 6.9 g/dL (6.3-8.2)
[2025-07-18 08:33] LABS: Troponin I < 0.012 ng/mL (0.000-0.034)
[2025-07-18] MEDS: SODIUM CHLORIDE 0.9% IV 1,000 ML 999 ML IV CONT (08:45)
[2025-07-18 09:56] LABS: Add Urine Microscopic? NO; Appearance Urine Clear (Clear); Glucose Urine UA Negative (Negative); Leukocyte Esterase Ur Negative LEU/UL (Negative); Nitrate Urine Negative (Negative); Specific Grav Ur 1.010 (1.001-1.035)
--- NOTE | 2025-07-18 10:09 | ED.AMS ---
HPI - Altered Mental Status General Chief Complaint: Altered Mental Status Stated Complaint: altered mental status Time Seen by Provider: 07/18/25 07:37 History of Present Illness HPI narrative: This is an 80-year-old male with history of ischemic cardiomyopathy, chronic deconditioning, recent mycobacterium avium complex pneumonia who presents to the ED via EMS from home for altered mental status. Per EMS, patient was acting strange for sons. He was just discharged from rehab yesterday was apparently doing well at that time. Patient has no complaints at this time. Sounds now at bedside states that patient is actively undergoing treatment for a pneumonia and will require 7 additional months of antibiotics, this is managed Nielson. He states that the patient has had fluctuating mental status. He had some hallucinations overnight which was unusual for him. He states that they tried to get him to a jail/assisted living but there were issues with finances so he was unable to go there. Related Data Home Medications ?Medication ?Instructions ?Recorded ?Confirmed ?Last Taken ?Type esomeprazole magnesium 20 mg 40 mg PO DAILY 06/15/25 06/29/25 06/28/25 08:00 History capsule,delayed release 40 mg ethambutol 400 mg tablet 1,200 mg PO DAILY 06/15/25 06/29/25 06/28/25 08:00 History 1,200 mg furosemide 20 mg tablet 40 mg PO DAILY 06/15/25 06/29/25 06/28/25 08:00 History 40 mg losartan 25 mg tablet 25 mg PO DAILY 06/15/25 06/29/25 06/28/25 08:00 History 25 mg tamsulosin 0.4 mg capsule 0.4 mg PO BID 06/15/25 06/29/25 06/28/25 08:00 History 0.4 mg Allergies Allergy/AdvReac Type Severity Reaction Status Date / Time clonazepam AdvReac Severe Drowsy Verified 05/30/25 19:29 [facility] AdvReac Severe Diarrhea Verified 05/30/25 19:29 Review of Systems Review of Systems: Gen.: Denies fevers or chills Eyes: Denies eye pain or visual change ENT: Denies congestion Respiratory: Denies shortness of breath or cough CV: Denies chest pain or palpitations GI: Denies abdominal pain nausea, emesis or diarrhea denies burning, urgency, frequency or hematuria Musculoskeletal: Denies back pain or muscle pain Neuro: Denies numbness, tingling, weakness or focal weakness Skin: Denies rash Except as documented, all other systems reviewed and negative [facility] Past Medical History Medical History Physical deconditioning NSVT (nonsustained ventricular tachycardia) Dysfunction of left eustachian tube Leukocytosis Heart failure with mildly reduced ejection fraction Chronic pulmonary aspergillosis Major depressive disorder, recurrent, mild Left foot drop Chronic kidney disease, stage 3 Spinal stenosis, lumbar region without neurogenic claudication Ischemic cardiomyopathy Echocardiogram 09/2021: Mildly reduced left ventricular systolic function EF of 45-50%, grade 1 diastolic dysfunction, inferior wall inferior septal wall basal inferior wall and mid inferior lateral wall hypokinesis with mild left atrial and large SVT (supraventricular tachycardia) 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 History of tobacco use Polio (1951) Other chronic pain Aortic stenosis Mild - Echo 05/15/2022 NSTEMI (non-ST elevated myocardial infarction) (08/2019) Atherosclerotic heart disease of [place] coronary artery without angina pectoris Abdominal aortic aneurysm, without rupture Seen on CT scan on 02/09/2018 Restless legs syndrome Surgical History Surgical History History of tonsillectomy and adenoidectomy History of repair of rotator cuff bilateral History of colonoscopy with polypectomy History of bowel resection due to obstruction Presence of coronary angioplasty implant and graft History of coronary artery stent placement X2 History of mandibular surgery (1986) reconstructive surgery right mandible related to cancer Family History Family History Mother Diabetes mellitus Acute myocardial infarction Father Colon cancer COPD (chronic obstructive pulmonary disease) Sibling Colon cancer Acute myocardial infarction Lung cancer COPD (chronic obstructive pulmonary disease) Sibling COPD (chronic obstructive pulmonary disease) Sibling Congestive heart failure Sibling Dementia Social History Social History Social History: Surrogate medical decision maker: Yessi Morgan, daughter. Code status: Full code. But he states he would not want to be on a ventilator long-term have a tracheostomy or feeding tube. Smoking packs per day: 2 Smoking cigarettes per day: 40.0 Years smoked: 60 Smoking pack-years: 120.00 Smoking status: Former smoker Tobacco type: cigarettes Second hand tobacco smoke exposure: No Smoking end date: 11/23/15 Alcohol intake: never Substance use: never Substance use type: does not use Other substance usage details: quit alcohol in 2010 Last use: Last alcohol use 2010 Do You Feel Safe in your Home?: Yes Lack of Transportation: No Lack of Food: Never True Current Housing: I Have Housing Concerned About Future Housing: No Difficulty Paying Gas/Electric Bills: No Difficulty Paying for Meds: No Currently Unemployed: No Education: High School Diploma/GED Difficulty w/ Childcare or Family Care: No Living arrangements: with family Additional living arrangements comments: . Lives in [place] with son and [id number]. 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 No respiratory distress. Occasional rhonchi. CARDIOVASCULAR: Regular rate and rhythm without murmurs rubs or gallops. ABDOMINAL: Soft, nontender, nondistended, no rebound or guarding MUSCULOSKELETAl: Moves all extremities. No clubbing, cyanosis or edema. NEURO: Awake and alert. Following commands, speech normal, no focal deficits SKIN:: Warm, dry. No rashes lesions or abrasions PSYCHIATRIC: Normal affect/mood, Course Vital Signs Vital signs: Vital Signs Pulse Rate 84 07/18/25 07:41 Respiratory Rate 14 07/18/25 07:41 Blood Pressure 126/64 07/18/25 07:41 Pulse Oximetry 98 07/18/25 07:41 Temperature 98.5 F 07/18/25 15:02 Pulse Rate 74 07/18/25 15:02 Respiratory Rate 23 H 07/18/25 15:02 Blood Pressure 148/73 H 07/18/25 15:02 Pulse Oximetry 94 07/18/25 15:30 Oxygen Delivery Nasal Cannula 07/18/25 15:30 Oxygen Flow Rate 4 07/18/25 15:30 MDM - Altered Mental Status MDM Narrative Medical decision making narrative: 80-year-old male presents to the ED via EMS from home for altered mental status and reported hallucinations. On initial evaluation, patient is in no acute distress, afebrile, hemodynamically stable. He was on his home 4 L nasal cannula. He had no complaints at this time. Patient was having hallucinations per sons. They did not feel that they are able to take care of him home. Patient was discharged [facility] yesterday to home due to financial issues with her getting him placed at a jail. CT head showed no acute process. He had a stable anemia at 8.7. Stable elevated creatinine. Chest x-ray showed persistent pneumonia that he is already being actively treated for. Case management reviewed the case and did attempt to have the patient placed back at [facility], but this would take longer than today so I recommended the patient be admitted has family cannot take care of him. I discussed the case with hospitalist who will admit the patient. Differential Diagnosis Differential diagnosis: Likely altered mental status, delirium, dementia, subarachnoid hemorrhage, sepsis and other (UTI) Medical Records Attestation: I reviewed the patient's medical records. Lab Data Attestation: I reviewed the patient's lab results. 07/18/25 07:49 07/18/25 07:49 Labs: Lab Results 07/18/25 07/18/25 Range/Units 07:49 09:47 WBC 7.1 (4.5-10.0) K/mm3 RBC 3.06 L (4.6-6.20) M/mm3 Hgb 8.7 L (14.0-18.0) g/dL Hct 29.3 L (42.0-52.0) % MCV 95.8 (80-100) fl MCH 28.4 (26-34) pg MCHC 29.7 L (32-36) g/dl RDW 16.1 H (11.5-14.5) % Plt Count 201 (150-375) k/mm3 MPV 10.8 H (7.4-10.4) fl Immature Gran % (Auto) 0.7 H (0-0.5) % Neut % (Auto) 85.4 H (45.5-73.1) % Lymph % (Auto) 5.6 L (18.3-44.2) % Toole % (Auto) 7.6 (2.6-8.5) % Eos % (Auto) 0.6 (0-4.4) % Baso % (Auto) 0.1 L (0.2-1.2) % Lymph # (Auto) 0.40 L (0.9-3.2) K/mm3 Toole # (Auto) 0.5 (0.1-0.6) K/mm3 Eos # (Auto) 0.0 (0-0.3) K/mm3 Baso # (Auto) 0.0 (0.0-0.1) K/mm3 Abs Immat Gran (auto) 0.05 H (0.00-0.031) K/mm3 Absolute Neuts (auto) 6.1 (1.3-6.7) K/mm3 Absolute Nucleated RBC 0.000 (0.0-0.012) K/mm3 Band Neutrophils % Not Reportable Nucleated RBC % 0.0 (0.0-0.2) % Platelet Estimate Adequate (Adequate) Hypochromasia 1+ Anisocytosis 1+ Schistocytes None seen Sodium 137 (137-145) mmol/L Potassium 4.4 (3.4-5.0) mmol/L Chloride 99 (98-107) mmol/L Carbon Dioxide 32 H (22-30) mmol/L Anion Gap 6 (4-12) mmol/L BUN 31 H D (9-20) mg/dL Creatinine 1.71 H (0.7-1.3) mg/dL Estim Creat Clear Calc 33 ml/min Estimated GFR 39 L (59 - ) Glucose 119 H (65-110) mg/dL Calcium 9.2 (8.4-10.2) mg/dL Total Bilirubin 0.6 (0.2-1.3) mg/dL AST 35 (17-59) U/L ALT 31 (6-50) U/L Alkaline Phosphatase 108 (38-126) U/L Troponin I < 0.012 (0.000-0.034) ng/mL Total Protein 6.9 (6.3-8.2) g/dL Albumin 3.5 (3.5-5.1) g/dL Urine Color Yellow (Yellow) Urine Appearance Clear (Clear) Urine pH 5.5 (5.0-9.0) Ur Specific [place] 1.010 (1.001-1.035) Urine Protein Negative (Negative) mg/dL Urine Glucose (UA) Negative (Negative) mg/dL Urine Ketones Negative (Negative) mg/dL Ur Blood (Man) Negative (Negative) Urine Nitrate Negative (Negative) Urine Bilirubin Negative (Negative) Urine Urobilinogen 0.2 (<2.0) mg/dL Leukocyte Esterase Rfl Negative (Negative) ROBIN/UL Urine Opiates Screen Positive A (Negative) Urine Methadone Screen Negative (Negative) Ur Barbiturates Screen Negative (Negative) Ur Phencyclidine Scrn Negative (Negative) Ur Amphetamine Screen Negative (Negative) U Benzodiazepines Scrn Negative (Negative) Urine Cocaine Screen Negative (Negative) U Cannabinoids Screen Negative (Negative) Ethyl Alcohol < 10 (<10) mg/dL Imaging Data Radiologist's impression: Impressions Chest X-Ray 07/18/25 08:16 Impression: 1: Extensive patchy bilateral airspace disease, compatible with pneumonia. 2: Small pleural effusions. Head CT 07/18/25 08:26 IMPRESSION: 1. No acute intracranial abnormality. Discharge Plan Discharge Clinical Impression: SNEHA (mycobacterium avium-intracellulare) Dementia Qualifiers: Dementia type: unspecified type Dementia severity: unspecified severity Dementia behavioral or psychological symptom: unspecified whether behavioral, psychotic, or mood disturbance or anxiety Qualified Code(s): F03.90 - Unspecified dementia, unspecified severity, without behavioral disturbance, psychotic disturbance, mood disturbance, and anxiety COPD (chronic obstructive pulmonary disease) Qualifiers: COPD type: chronic bronchitis Chronic bronchitis type: unspecified Qualified Code(s): J42 - Unspecified chronic bronchitis Patient Disposition: Still a Patient Condition: Stable
[2025-07-18 10:35] LABS: Cannabinoid Screen Urine Negative (Negative)
--- NOTE | 2025-07-18 12:19 | PCCCNOTE ---
Called Radha at [facility]. Faxed information and referral for SNF. Radha needs to look to assure that Medicaid will pay. Awaiting callback.
--- NOTE | 2025-07-18 13:08 | PM.IMHP ---
H&P: HPI History of Present Illness Date/Time: 07/18/25 13:08 Chief Complaint: Confusion Narrative: 80 y/o M with PMH of COPD, SNEHA, heart failure, chronic pulmonary aspergillosis, ischemic cardiomyopathy, Pseudomonas infection, COPD, BPH, GERD, HTN, chronic respiratory failure on home O2, NSTEMI, essential tremor, polio (195), and aortic stenosis presents here with confusion. The patient presents back to [facility] on 07/18 from home for further evaluation of confusion. The patient has had to admissions within the last few months for respiratory concerns. Initial admission was from 05/30 - 06/04 which required transfer to [facility] for Infectious Disease and pulmonology services. He was admitted there from 06/04 - 06/07. He return to [facility] on 06/15 for continued shortness of breath and hypoxia. Treatment was continued for SNEHA pneumonia. He was then discharged on 06/23 to home with home health services. Patient then returned on 06/29 for same symptoms, treatment was continued for SNEHA PNA, and was discharged on 07/02 to [facility]. He was discharged from [facility] care yesterday, 07/17, to home. He is returning today as his son's report he has been acting strangely at home and has now developed visual hallucinations. They report he has had a fluctuating mental status, however the hallucinations overnight are unusual for him. The patient denies any hallucinations today. They do not feel they can safely care for him at home and they were unable to have patient placed back in long-term/assisted living. The patient currently denies worsening shortness of breath. Continues to have a productive cough. Initial VS at presentation: 97.9? F, HR 84, RR 14, 126/64, and 98% on 4L nasal cannula. ED workup showed: No leukocytosis, hemoglobin 8.7 (at baseline), creatinine 1.71 and GFR 39, glucose 119, initial troponin negative, UA unremarkable, UDS positive for opiates, ethanol negative. CXR showed extensive patchy bilateral airspace disease compatible with pneumonia and small pleural effusions. Head CT showed no acute intracranial abnormality. Review of Systems Review of Systems: All systems reviewed & are unremarkable except as noted in HPI and below PMFSH Past Medical History Medical History Physical deconditioning NSVT (nonsustained ventricular tachycardia) Dysfunction of left eustachian tube Leukocytosis Heart failure with mildly reduced ejection fraction Chronic pulmonary aspergillosis Major depressive disorder, recurrent, mild Left foot drop Chronic kidney disease, stage 3 Spinal stenosis, lumbar region without neurogenic claudication Ischemic cardiomyopathy Echocardiogram 09/2021: Mildly reduced left ventricular systolic function EF of 45-50%, grade 1 diastolic dysfunction, inferior wall inferior septal wall basal inferior wall and mid inferior lateral wall hypokinesis with mild left atrial and large SVT (supraventricular tachycardia) 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 History of tobacco use Polio (1951) Other chronic pain Aortic stenosis Mild - Echo 05/15/2022 NSTEMI (non-ST elevated myocardial infarction) (08/2019) Atherosclerotic heart disease of [place] coronary artery without angina pectoris Abdominal aortic aneurysm, without rupture Seen on CT scan on 02/09/2018 Restless legs syndrome Surgical History Surgical History History of tonsillectomy and adenoidectomy History of repair of rotator cuff bilateral History of colonoscopy with polypectomy History of bowel resection due to obstruction Presence of coronary angioplasty implant and graft History of coronary artery stent placement X2 History of mandibular surgery (1986) reconstructive surgery right mandible related to cancer Family History Family History Mother Diabetes mellitus Acute myocardial infarction Father Colon cancer COPD (chronic obstructive pulmonary disease) Sibling Colon cancer Acute myocardial infarction Lung cancer COPD (chronic obstructive pulmonary disease) Sibling COPD (chronic obstructive pulmonary disease) Sibling Congestive heart failure Sibling Dementia Social History Social History Social History: Surrogate medical decision maker: Yessi Morgan, daughter. Code status: Full code. But he states he would not want to be on a ventilator long-term have a tracheostomy or feeding tube. Smoking packs per day: 2 Smoking cigarettes per day: 40.0 Years smoked: 60 Smoking pack-years: 120.00 Smoking status: Former smoker Tobacco type: cigarettes Second hand tobacco smoke exposure: No Smoking end date: 11/23/15 Alcohol intake: never Substance use: never Substance use type: does not use Other substance usage details: quit alcohol in 2010 Last use: Last alcohol use 2010 Do You Feel Safe in your Home?: Yes Lack of Transportation: No Lack of Food: Never True Current Housing: I Have Housing Concerned About Future Housing: No Difficulty Paying Gas/Electric Bills: No Difficulty Paying for Meds: No Currently Unemployed: No Education: High School Diploma/GED Difficulty w/ Childcare or Family Care: No Living arrangements: with family Additional living arrangements comments: . Lives in [place] with son and [id number]. 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[employer] Spiritual care concerns: No Agree to blood products: Yes Meds Home Medications and Allergies Home Medications ?Medication ?Instructions ?Recorded ?Confirmed ?Type aspirin 81 mg tablet,delayed 81 mg PO DAILY #90 tabs 06/15/23 07/18/25 Rx release fenofibrate 160 mg tablet 160 mg PO DAILY #90 tabs 09/16/23 07/18/25 Rx nebulizer accessories #1 ea 04/12/24 07/18/25 Rx nebulizer and compressor #1 ea 04/12/24 07/18/25 Rx linaclotide 290 mcg capsule See Rx Instructions .Route 04/28/24 07/18/25 Rx (Linzess) .COMPLEX #90 caps albuterol sulfate 90 mcg/actuation 2 puff inhalation Q4H PRN 10/03/24 07/18/25 Rx aerosol inhaler Shortness Of Breath Or Wheezing #8.5 grams albuterol sulfate 2.5 mg/3 mL 2.5 mg (3 mL) inhalation Q4H PRN 12/08/24 07/18/25 Rx (0.083 %) solution for nebulization shortness of breath or wheezing #90 mL nitroglycerin 0.4 mg sublingual 0.4 mg sublingual Q5M PRN chest 12/08/24 07/18/25 Rx tablet pain #25 tabs metoprolol succinate 50 mg 50 mg PO HS #90 tabs 12/29/24 07/18/25 Rx tablet,extended release 24 hr lorazepam 0.5 mg tablet 0.5 mg PO BID PRN anxiety #60 tabs 03/21/25 07/18/25 Rx sulindac 200 mg tablet 200 mg PO BID #180 tabs 04/07/25 07/18/25 Rx atorvastatin 80 mg tablet 80 mg PO DAILY #90 tabs 04/11/25 07/18/25 Rx sertraline 50 mg tablet 50 mg PO DAILY #90 tabs 04/20/25 07/18/25 Rx glycopyrrolate 9 mcg-formoterol 2 puff inhalation BID #10.7 grams 04/28/25 07/18/25 Rx 4.8 mcg HFA aerosol inhaler (Bevespi Aerosphere) hydroxyzine HCl 25 mg tablet 25 mg PO QID PRN anxiety #50 tabs 05/19/25 07/18/25 Rx trazodone 100 mg tablet 100 mg PO HS Insomnia #90 tabs 05/24/25 07/18/25 Rx esomeprazole magnesium 20 mg 40 mg PO DAILY 06/15/25 07/18/25 History capsule,delayed release ethambutol 400 mg tablet 1,200 mg PO DAILY 06/15/25 07/18/25 History furosemide 20 mg tablet 40 mg PO DAILY 06/15/25 07/18/25 History losartan 25 mg tablet 25 mg PO DAILY 06/15/25 07/18/25 History tamsulosin 0.4 mg capsule 0.4 mg PO BID 06/15/25 07/18/25 History rifabutin 150 mg capsule 300 mg (2 x 150 mg) PO DAILY #60 06/30/25 07/18/25 Rx caps azithromycin 250 mg tablet 250 mg PO DAILY #36 tabs 07/01/25 07/18/25 Rx (Zithromax) baclofen 10 mg tablet 5 mg (1/2 x 10 mg) PO TID PRN 07/01/25 07/18/25 Rx muscle spasm #30 tabs acetylcysteine 200 mg/mL (20 %) 200 mg inhalation Q6HRT #180 mL 07/02/25 07/18/25 Rx solution baclofen 10 mg tablet 10 mg PO HS #30 tabs 07/02/25 07/18/25 Rx benzonatate 100 mg capsule 200 mg (2 x 100 mg) PO TID PRN 07/02/25 07/18/25 Rx Cough #30 caps guaifenesin 600 mg tablet, 1,200 mg (2 x 600 mg) PO Q12HR #60 07/02/25 07/18/25 Rx extended release 12 hr (Mucus tabs Relief ER) ipratropium 0.5 mg-albuterol 3 mg 3 ml inhalation Q6HRT #180 mL 07/02/25 07/18/25 Rx (2.5 mg base)/3 mL nebulization soln morphine 30 mg tablet,extended 30 mg PO Q12H PRN pain 3 days #6 07/02/25 07/18/25 Rx release tabs olopatadine 0.2 % eye drops (Eye 1 drp EACH EYE DAILY PRN itching 07/02/25 07/18/25 Rx Allergy Itch Relief) #5 mL bupropion HCl 150 mg tablet,12 hr 150 mg PO BID #180 tabs 07/03/25 07/18/25 Rx sustained-release Allergies Allergy/AdvReac Type Severity Reaction Status Date / Time clonazepam AdvReac Severe Drowsy Verified 05/30/25 19:29 roflumilast (From Daliresp) AdvReac Severe Diarrhea Verified 05/30/25 19:29 Vital Signs Vital Signs - 24 hr 07/18/25 07:41 07/18/25 08:03 07/18/25 08:46 Temperature 97.9 F 97.9 F Pulse Rate 84 76 72 Respiratory Rate 14 16 22 H Blood Pressure 126/64 126/64 112/68 Pulse Oximetry 98 96 100 Oxygen Delivery Nasal Cannula Oxygen Flow Rate 4 07/18/25 09:01 07/18/25 09:31 07/18/25 10:31 Temperature 97.6 F 97.9 F Pulse Rate 75 75 74 Respiratory Rate 15 17 15 Blood Pressure 127/51 L 134/63 147/63 H Pulse Oximetry 100 100 100 Oxygen Delivery Oxygen Flow Rate 07/18/25 11:15 07/18/25 11:30 07/18/25 12:00 Temperature Pulse Rate 74 68 Respiratory Rate 23 H 23 H Blood Pressure 132/69 136/57 L Pulse Oximetry 97 94 100 Oxygen Delivery Nasal Cannula Oxygen Flow Rate 4 Exam Const: General: comfortable and no acute distress Other: , male, elderly, chronically ill-appearing HENMT: Face/Nose/Sinus: Normal nares present Mouth: Yes moist mucous membranes Eyes: General: appearance normal, both eyes and all related structures Sclera: sclerae normal Pupils: Equal, round and reactive pupils present EOM: EOMs intact bilaterally Resp: Other: +wet cough, coarse lung sounds bilaterally, intermittent exp wheeze. Mild conversational dyspnea. Cardio: Rate: regular rate Rhythm: regular rhythm Other: S1-S2 present without murmur, rub, ectopy GI: Other: Abdomen soft, nondistended, nontender. Normoactive bowel sounds in all quadrants. Skin: General skin exam: normal color and no rashes or lesions noted Wounds: no wounds Neuro: Speech: normal speech Motor exam (neuro): 5/5 motor strength present throughout Sensory Exam: normal sensation Other: A&O x4 Extrem: General: normal to inspection Psych: Mental Status: mental status grossly normal Affect: normal affect Other: Fair insight and judgment, very pleasant H&P: Results Labs Labs: Short CBC 07/18/25 Range/Units 07:49 WBC 7.1 (4.5-10.0) K/mm3 Hgb 8.7 L (14.0-18.0) g/dL Hct 29.3 L (42.0-52.0) % Plt Count 201 (150-375) k/mm3 BMP 07/18/25 07:49 Sodium 137 Potassium 4.4 Chloride 99 Carbon Dioxide 32 H BUN 31 H D Creatinine 1.71 H Glucose 119 H Calcium 9.2 Cardiac Enzymes 07/18/25 Range/Units 07:49 Troponin I < 0.012 (0.000-0.034) ng/mL Liver Function 07/18/25 Range/Units 07:49 Total Bilirubin 0.6 (0.2-1.3) mg/dL AST 35 (17-59) U/L ALT 31 (6-50) U/L Alkaline Phosphatase 108 (38-126) U/L Albumin 3.5 (3.5-5.1) g/dL Urine 07/18/25 Range/Units 09:47 Urine Color Yellow (Yellow) Urine Appearance Clear (Clear) Urine pH 5.5 (5.0-9.0) Ur Specific [place] 1.010 (1.001-1.035) Urine Protein Negative (Negative) mg/dL Urine Glucose (UA) Negative (Negative) mg/dL Assessment and Plan Assessment and plan (1) Delirium: Code(s): R41.0 - Disorientation, unspecified Status: Acute Assessment and Plan: - head CT, 07/18: No acute intracranial abnormality. - history of altered mental status that waxes and wanes, hallucinations are new. UA is unremarkable. Patient on morphine at home for chronic pain, UDS showing positive for opiates otherwise unremarkable. High suspicion for delirium that was exacerbated by recent transition from [facility] to back home. Family no longer feels he can safely care for the patient at home, requesting placement. Care coordination consulted. - monitor neuro status, currently A&O x4 and remembers having visual hallucinations overnight. Denies any at present. (2) SANDI (acute kidney injury): Code(s): N17.9 - Acute kidney failure, unspecified Status: Acute Assessment and Plan: - creatinine 1.71, BUN 31, GFR 39 upon admission on 07/18 - baseline creatinine: 0.9 - 1.2 - has history of recent SANDI (early June). Successfully treated with IV fluids and holding Losartan/Lasix. Will start with same treatment. IV fluids: 1L bolus -> 75 mL/hr x1L. - trend renal function - trend electrolytes, correct as needed (3) SNEHA (mycobacterium avium-intracellulare): Code(s): A31.0 - Pulmonary mycobacterial infection Status: Acute Assessment and Plan: - continue home medications: Ethambutol 1200mg daily, Rifabutin 150mg daily, Azithromycin 500 reduced to 250 mg daily for hearing changes - [facility] CXR redemonstrated bilateral PNA (4) Chronic obstructive pulmonary disease: Qualifiers: COPD type: chronic bronchitis Chronic bronchitis type: unspecified Qualified Code(s): J42 - Unspecified chronic bronchitis Code(s): J44.9 - Chronic obstructive pulmonary disease, unspecified Status: Acute Assessment and Plan: - continue home meds: Bevespi 9-4.8mcg HFA inhaler, Breztri 160-9-4.8 HFA q12, Albuterol HFA prn, neb solution - no evidence of exacerbation at this time (5) Chronic hypoxic respiratory failure, on home oxygen therapy: Code(s): J96.11 - Chronic respiratory failure with hypoxia; Z99.81 - Dependence on supplemental oxygen Status: Acute Assessment and Plan: - now on 4L NC at baseline, no increased requirement at this time. continue to maintain O2 sat greater than 92% - had a vest previously, during previous admissions it was recommended by Pulmonary to continue. Ordered. (6) Chronic anemia: Code(s): D64.9 - Anemia, unspecified Status: Acute Assessment and Plan: - Hgb 8.7 - baseline in the eights - transfuse if <7 - trend (7) Combined systolic and diastolic congestive heart failure: Qualifiers: Heart failure chronicity: acute on chronic Qualified Code(s): I50.43 - Acute on chronic combined systolic (congestive) and diastolic (congestive) heart failure Code(s): I50.40 - Unspecified combined systolic (congestive) and diastolic (congestive) heart failure Status: Acute Assessment and Plan: - home medications: Hold Lasix due to SANDI - monitor I&Os - most recent echo (10/2024): LV function mildly reduced, EF 49%, grade 1 diastolic dysfunction. (8) HTN (hypertension): Qualifiers: Hypertension type: primary hypertension Qualified Code(s): I10 - Essential (primary) hypertension Code(s): I10 - Essential (primary) hypertension Status: Chronic Assessment and Plan: - chronic, currently 136/57 - home medications: Hold losartan due to SANDI, continue metoprolol - monitor Plan Diet: Regular GI Prophylaxis: N/a DVT Prophylaxis: Lovenox IV fluids: 1L -> 75 mL/hour x1 L Lines/Tubes: Peripheral IV Code Status: DNR/DNI, okay with medications and central line if indicated Quality VTE Prophylaxis VTE prophylaxis: pharmacologic ordered Hospitalist MIPS Advance Care Plan I have confirmed that the patient's Advanced Care Plan is present, code status is documented, or surrogate decision maker is listed in patient medical record.: Yes Medication Reconciliation I have utilized all available resources to obtain, update and review the patients current medications (includes all prescriptions, OTC, herbals, cannabis, and nutritional supplements).: Yes
--- NOTE | 2025-07-18 15:15 | PC.NURSE ---
This patient, Russell Morse, was admitted to [facility] Surg Room 332-02. Patient/family oriented to hospital policies and general routines including ID bracelet, bed and alarms, visiting hours, pain management, procedures, bathroom and other care routines, personal items, smoking policy, room service/diet, and visiting hours. Information on how to activate the Rapid Response Team has been discussed. Patient/Family are encouraged to report perceived risks to care and to ask questions if they do not understand what they are told or what they should do.
--- NOTE | 2025-07-18 15:31 | PCRCNOTE ---
Darek at [facility] set-up pt with bi-waze oscillating lung expansion unit for home use, can be used with saline if not on treatments. Unit was delivered 07/17/25, day of d/c from [facility] to home per Darek.
[2025-07-18] MEDS: ENOXAPARIN 40 MG/0.4 ML SYRINGE SUB-Q (17:14)
[2025-07-18] MEDS: LACTATED RINGERS 1,000 ML 75 ML IV CONT (17:14)
[2025-07-18] MEDS: IPRATROPIUM 0.5 MG/ALBUTEROL SULFATE 2.5 MG AMPUL.NEB 3 ML INHALATION (20:29)
[2025-07-18] MEDS: guaiFENesin 12 HR 600 MG TABCR 1200 MG PO (21:04)
[2025-07-18] MEDS: BACLOFEN 10 MG TABLET PO (21:04)
[2025-07-18] MEDS: METOPROLOL SUCCINATE EXT REL 50 MG TABCR PO (21:07)
--- NOTE | 2025-07-18 23:06 | PCRCNOTE ---
Pt did not tolerate the vest. Pt was given a corenet. Pt has spinal stenosis.
[2025-07-19] VITALS (14 sets, daily range): BP systolic 130–160; BP diastolic 57–86; PULSE 63–81; RESP 17–20; TEMP 36.4–36.9; O2SAT 94–99; BMI 22.8
[2025-07-19] MEDS: IPRATROPIUM 0.5 MG/ALBUTEROL SULFATE 2.5 MG AMPUL.NEB 3 ML INHALATION ×4 (01:24→20:21)
[2025-07-19] MEDS: ACETYLCYSTEINE 20% INHAL SOLN 800 MG/4 ML VIAL 200 MG INHALATION ×4 (01:24→20:22)
[2025-07-19] MEDS: LINACLOTIDE 145 MCG CAPSULE 290 MCG PO (05:35)
[2025-07-19 06:46] LABS: Hematocrit 27.4 % (42.0-52.0); Hemoglobin 8.1 g/dL (14.0-18.0); Immature Granulocyte Percent A 0.7 % (0-0.5); Lymphocytes Absolute Auto 0.70 K/mm3 (0.9-3.2); Mean Corpuscular HGB Conc 29.6 g/dl (32-36); Mean Corpuscular Hemoglobin 28.2 pg (26-34); Mean Corpuscular Volume 95.5 fl (80-100); Nucleated Red Blood Cells Absolute Auto 0.000 K/mm3 (0.0-0.012); Nucleated Red Blood Cells Perc 0.0 % (0.0-0.2); Platelet Count Result 199 k/mm3 (150-375); Red Blood Count 2.87 M/mm3 (4.6-6.20); White Blood Count 5.8 K/mm3 (4.5-10.0)
[2025-07-19 07:35] LABS: Anion Gap 3 mmol/L (4-12); Blood Urea Nitrogen 20 mg/dL (9-20); Calcium 9.3 mg/dL (8.4-10.2); Carbon Dioxide 33 mmol/L (22-30); Chloride 101 mmol/L (98-107); Estimated CRCL calculation 51 ml/min; Estimated Glomerular Filt Rate > 60; Glucose 94 mg/dL (65-110); Potassium 4.1 mmol/L (3.4-5.0); Sodium 137 mmol/L (137-145)
[2025-07-19 08:01] LABS: Hypochromasia 1+; Schistocytes None Seen
[2025-07-19] MEDS: ATORVASTATIN 40 MG TABLET 80 MG PO (08:21)
[2025-07-19] MEDS: PANTOPRAZOLE 40 MG TABLET PO (08:22)
[2025-07-19] MEDS: ENOXAPARIN 40 MG/0.4 ML SYRINGE SUB-Q (08:22)
[2025-07-19] MEDS: buPROPion HCL SR (12 HR) 150 MG TAB PO ×2 (08:22→22:00)
[2025-07-19] MEDS: AZITHROMYCIN 250 MG TABLET PO (08:22)
[2025-07-19] MEDS: ASPIRIN 81 MG ENTERIC TABLET PO (08:23)
[2025-07-19] MEDS: guaiFENesin 12 HR 600 MG TABCR 1200 MG PO ×2 (08:23→22:00)
[2025-07-19] MEDS: TAMSULOSIN HCL 0.4 MG CAPSULE PO ×2 (08:23→22:00)
[2025-07-19] MEDS: ETHAMBUTOL HCL 400 MG TABLET 1200 MG PO (08:23)
[2025-07-19] MEDS: SERTRALINE HCL 50 MG TABLET PO (08:23)
[2025-07-19] MEDS: FENOFIBRATE NANOCRYSTALLIZED 145 MG TABLET PO (08:23)
[2025-07-19] MEDS: MORPHINE SULFATE (*CRX) 30 MG TABCR PO (08:30)
--- NOTE | 2025-07-19 12:38 | P.CDI_ITS ---
<Statement entered by Ann Soto, FLAQUITA-Shonda - 07/19/25 13:01> This documentation has been reviewed and approved. Severe Protein Calorie Malnutrition CDI Query Clarification Request BMI: 22.8 Nutritional Diagnostic Statement: Please refer to the comprehensive nutrition assessment for further information. If you agree with diagnosis of Severe protein calorie malnutrition related to inadequate energy intake as evidenced by charted intake, noted a significant weight loss of -13% x 5 months, and NFPE findings for severe subcutaneous fat loss, and severe muscle wasting. Please specify severity if known: * Mild * Moderate * Severe * Other/Unknown
--- NOTE | 2025-07-19 14:13 | P.PNIM_ITS ---
Progress Note: A&P Assessment and Plan (1) Delirium: Code(s): R41.0 - Disorientation, unspecified Status: Acute Assessment and Plan: * head CT, 07/18: No acute intracranial abnormality. * history of altered mental status that waxes and wanes, hallucinations are new. UA is unremarkable. Patient on morphine at home for chronic pain, UDS showing positive for opiates otherwise unremarkable. High suspicion for delirium that was exacerbated by recent transition [place] [facility] [place] back home. Family no longer feels he can safely care for the patient at home, requesting placement. Care coordination consulted. * monitor neuro status, currently A&O x4. No current hallucinations. (2) SANDI (acute kidney injury): Code(s): N17.9 - Acute kidney failure, unspecified Status: Acute Assessment and Plan: * creatinine 1.06 and BUN 20 today overall improved from admission. Appears to be at baseline today. * baseline creatinine: 0.9 - 1.2 * trend renal function * trend electrolytes, correct as needed (3) SNEHA (mycobacterium avium-intracellulare): Code(s): A31.0 - Pulmonary mycobacterial infection Status: Acute Assessment and Plan: * continue home medications: Ethambutol 1200mg daily, Rifabutin 150mg daily, Azithromycin 500 reduced to 250 mg daily for hearing changes * [facility] * CXR redemonstrated bilateral PNA (4) Chronic obstructive pulmonary disease: Qualifiers: COPD type: chronic bronchitis Chronic bronchitis type: unspecified Qualified Code(s): J42 - Unspecified chronic bronchitis Code(s): J44.9 - Chronic obstructive pulmonary disease, unspecified Status: Acute Assessment and Plan: * continue home meds: Bevespi 9-4.8mcg HFA inhaler, Breztri 160-9-4.8 HFA q12, Albuterol HFA prn, neb solution * no evidence of exacerbation at this time (5) Chronic hypoxic respiratory failure, on home oxygen therapy: Code(s): J96.11 - Chronic respiratory failure with hypoxia; Z99.81 - Dependence on s upplemental oxygen Status: Acute Assessment and Plan: * now on 4L NC at baseline, no increased requirement at this time. continue to maintain O2 sat greater than 92% * had a vest previously, during previous admissions it was recommended by Pulmonary to continue. Ordered. (6) Chronic anemia: Code(s): D64.9 - Anemia, unspecified Status: Acute Assessment and Plan: * Hgb 8.1 today. 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 * monitor I&Os * most recent echo (10/2024): LV function mildly reduced, EF 49%, grade 1 diastolic dysfunction. (8) HTN (hypertension): Qualifiers: Hypertension type: primary hypertension Qualified Code(s): I10 - Essential (primary) hypertension Code(s): I10 - Essential (primary) hypertension Status: Chronic Assessment and Plan: * Stable BP. * Restart home Losartan 25 mg as pt's renal function is at baseline. * Trend Time Spent With Patient Time with patient: 15 - 25 minutes Subjective Date/time seen: 07/19/25 14:13 Interval history: This gentleman is examined at the bedside this morning after he was brought back to the ER due to family not being able to care for him at home. Care coordination is working to attempt to get him placed. He has no acute complaints and is alert and oriented, knowing why he is here which is weakness. Review of Systems Review of Systems: All systems reviewed & are unremarkable except as noted in HPI and below Exam Narrative: +wet cough, coarse lung sounds bilateral ly, intermittent exp wheeze Const: General: comfortable and no acute distress Other: , male, elderly, chronically ill-appearing HENMT: Face/Nose/Sinus: Normal nares present Mouth: Yes moist mucous membranes Eyes: General: appearance normal, both eyes and all related structures Sclera: sclerae normal Pupils: Equal, round and reactive pupils present EOM: EOMs intact bilaterally Resp: Other: +wet cough, coarse lung sounds bilateral ly, intermittent exp wheeze. Mild conversational dyspnea. Cardio: Rate: regular rate Rhythm: regular rhythm Other: S1-S2 present without murmur, rub, ectopy GI: Other: Abdomen soft, nondistended, nontender. Normoactive bowel sounds in all quadrants. Skin: General skin exam: normal color and no rashes or lesions noted Wounds: no wounds Neuro: Cranial nerves: Yes Equal, round and reactive pupils present Speech: normal speech Motor exam (neuro): 5/5 motor strength present throughout Sensory Exam: normal sensation Other: A&O x4 Extrem: General: normal to inspection Psych: Mental Status: mental status grossly normal Affect: normal affect Other: Fair insight and judgment, very pleasant Objective Data Vital Signs Vital Signs: Vital Signs - 24 hr 07/18/25 15:02 07/18/25 15:30 07/18/25 16:00 Temperature 98.5 F 98 F Pulse Rate 74 83 Respiratory Rate 23 H 21 H Blood Pressure 148/73 H 139/55 L Pulse Oximetry 100 94 99 Oxygen Delivery Nasal Cannula Oxygen Flow Rate 4 Fraction of Inspired Oxygen 07/18/25 20:00 07/18/25 20:30 07/18/25 20:39 Temperature 98.2 F Pulse Rate 91 86 Respiratory Rate 20 18 Blood Pressure 153/60 H Pulse Oximetry 98 95 Oxygen Delivery Nasal Cannula Oxygen Flow Rate 4 Fraction of Inspired Oxygen 07/18/25 20:45 07/18/25 21:07 07/19/25 01:25 Temperature Pulse Rate 91 91 77 Respiratory Rate 20 20 Blood Pressure Pulse Oximetry 97 Oxygen Delivery Nasal Cannula Oxygen Flow Rate 4 Fraction of Inspired Oxygen 36 07/19/25 01:34 07/19/25 05:15 07/19/25 08:00 Temperature 98 F Pulse Rate 75 72 Respiratory Rate 20 18 Blood Pressure 160/65 H Pulse Oximetry 99 94 Oxygen Delivery Nasal Cannula Oxygen Flow Rate 4 Fraction of Inspired Oxygen 07/19/25 09:53 07/19/25 09:58 07/19/25 10:06 Temperature Pulse Rate 67 67 67 Respiratory Rate 18 20 18 Blood Pressure Pulse Oximetry 96 Oxygen Delivery Nasal Cannula Oxygen Flow Rate 3 Fraction of Inspired Oxygen 07/19/25 14:01 07/19/25 14:11 Temperature Pulse Rate 64 63 Respiratory Rate 18 19 Blood Pressure Pulse Oximetry Oxygen Delivery Oxygen Flow Rate Fraction of Inspired Oxygen Intake/Output Intake/Output: Intake & Output 07/16/25 07/17/25 07/18/25 07/19/25 23:59 23:59 23:59 23:59 Intake Total 1880 370 Output Total 1050 500 Balance 830 -130 Meds/Results Medications: Active Medications Generic Name Dose Route Start Last Admin Trade Name Freq PRN Reason Stop Dose Admin Acetylcysteine 200 mg 07/19/25 02:00 07/19/25 14:01 Acetylcysteine 20% Inhal Soln 800 Mg/4 Ml Vial INHALATION 200 mg Q6HRT GIOVANNY Administration Albuterol 2.5 mg 07/18/25 20:24 Albuterol Sulfate Neb 2.5 Mg/3 Ml Inh INHALATION Q4HRT PRN Shortness Of Breath Or Wheezing Albuterol/Ipratropium 3 ml 07/18/25 20:00 07/19/25 14:01 Ipratropium 0.5 Mg/Albuterol Sulfate 2.5 Mg Ampul.Neb 3 Ml INHALATION 3 ml Q6HRT GIOVANNY Administration Aspirin 81 mg 07/19/25 09:00 07/19/25 08:23 Aspirin 81 Mg Enteric Tablet PO 81 mg DAILY GIOVANNY Administration Atorvastatin Calcium 80 mg 07/19/25 09:00 07/19/25 08:21 Atorvastatin 40 Mg Tablet PO 80 mg DAILY GIOVANNY Administration Azithromycin 250 mg 07/19/25 09:00 07/19/25 08:22 Azithromycin 250 Mg Tablet PO 250 mg DAILY GIOVANNY Administration Baclofen 5 mg 07/18/25 20:24 Baclofen 5 Mg Tablet PO TID PRN Muscle Spasm Baclofen 10 mg 07/18/25 21:00 07/18/25 21:04 Baclofen 10 Mg Tablet PO 10 mg HS GIOVANNY Administration Benzonatate 200 mg 07/18/25 20:24 Benzonatate 100 Mg Capsule PO TID PRN Cough Bupropion HCl 150 mg 07/19/25 09:00 07/19/25 08:22 Bupropion Hcl Sr (12 Hr) 150 Mg Tab PO 150 mg Q12HR GIOVANNY Administration Enoxaparin Sodium 40 mg 07/18/25 13:49 07/19/25 08:22 Enoxaparin 40 Mg/0.4 Ml Syringe SUB-Q 40 mg DAILY GIOVANNY Administration Ethambutol HCl 1,200 mg 07/19/25 09:00 07/19/25 08:23 Ethambutol Hcl 400 Mg Tablet PO 1,200 mg DAILY GIOVANNY Administration Fenofibrate 145 mg 07/19/25 09:00 07/19/25 08:23 Fenofibrate Nanocrystallized 145 Mg Tablet PO 145 mg QAM GIOVANNY Administration Guaifenesin 1,200 mg 07/18/25 21:00 07/19/25 08:23 Guaifenesin 12 Hr 600 Mg Tabcr PO 1,200 mg Q12HR GIOVANNY Administration Hydroxyzine HCl 25 mg 07/18/25 20:24 Hydroxyzine Hcl 25 Mg Tablet PO QID PRN Anxiety Linaclotide 290 mcg 07/19/25 06:30 07/19/25 05:35 Linaclotide 145 Mcg Capsule PO 290 mcg DAILY@0630 GIOVANNY Administration Lorazepam 0.5 mg 07/18/25 20:24 Lorazepam (*Crx) 0.5 Mg Tablet PO BID PRN Anxiety Metoprolol Succinate 50 mg 07/18/25 21:00 07/18/25 21:07 Metoprolol Succinate Ext Rel 50 Mg Tabcr PO 50 mg HS GIOVANNY Administration Miscellaneous Information 0 each 07/18/25 00:01 Sulindac- Send Home Med To Pharmacy To Verify XX 08/17/25 00:00 [facility] Miscellaneous Information 0 each 07/18/25 00:01 Olopatadine Nonform Can Pt Bring From Home Or Hold While Here? XX 08/17/25 00:00 [facility] Miscellaneous Information 0 each 07/18/25 00:01 Rifabutin - Send Home Med To Pharmacy To Verify [facility] Use Of Home Supply XX 08/17/25 00:00 CLARIFY GIOVANNY Morphine Sulfate 30 mg 07/18/25 20:24 07/19/25 08:30 Morphine Sulfate (*Crx) 30 Mg Tabcr PO 30 mg Q12H PRN Administration Pain 7-10 Nitroglycerin 0.4 mg 07/18/25 20:24 Nitroglycerin Sl 0.4 Mg Tablet SUBLINGUAL Q5M PRN Chest Pain Non-Formulary Medication 1 drop 07/18/25 20:24 Olopatadine [Eye Allergy Itch Relief] EACH EYE DAILY PRN itching Non-Formulary Medication 300 mg 07/19/25 09:00 Rifabutin PO 08/18/25 08:59 DAILY GIOVANNY Non-Formulary Medication 200 mg 07/19/25 09:00 Sulindac PO 08/18/25 08:59 BID GIOVANNY Pantoprazole Sodium 40 mg 07/19/25 09:00 07/19/25 08:22 Pantoprazole 40 Mg Tablet PO 40 mg QAM GIOVANNY Administration Sertraline HCl 50 mg 07/19/25 09:00 07/19/25 08:23 Sertraline Hcl 50 Mg Tablet PO 50 mg DAILY GIOVANNY Administration Tamsulosin HCl 0.4 mg 07/19/25 09:00 07/19/25 08:23 Tamsulosin Hcl 0.4 Mg Capsule PO 0.4 mg Q12HR GIOVANNY Administration Trazodone HCl 100 mg 07/18/25 21:00 07/18/25 21:04 Trazodone Hcl 50 Mg Tablet PO 100 mg HS GIOVANNY Administration Umeclidinium/Vilanterol 1 puff 07/19/25 08:00 Umeclidinium/Vilanterol 62.5-25 Mcg Ellipta INHALATION DAILYRT [facility] Radiology Results: ITS Impressions Chest X-Ray 07/18/25 08:16 Impression: 1: Extensive patchy bilateral airspace disease, compatible with pneumonia. 2: Small pleural effusions. Head CT 07/18/25 08:26 IMPRESSION: 1. No acute intracranial abnormality. Labs Labs: Laboratory Results - last 24 hr 07/19/25 06:12 WBC 5.8 RBC 2.87 L Hgb 8.1 L Hct 27.4 L MCV 95.5 MCH 28.2 MCHC 29.6 L RDW 16.1 H Plt Count 199 MPV 11.2 H Immature Gran % (Auto) 0.7 H Neut % (Auto) 74.6 H Lymph % (Auto) 12.0 L Stevens % (Auto) 12.2 H Eos % (Auto) 0.3 Baso % (Auto) 0.2 Lymph # (Auto) 0.70 L Stevens # (Auto) 0.7 H Eos # (Auto) 0.0 Baso # (Auto) 0.0 Abs Immat Gran (auto) 0.04 H Absolute Neuts (auto) 4.4 Absolute Nucleated RBC 0.000 Band Neutrophils % Not Reportable Nucleated RBC % 0.0 Platelet Estimate Adequate Hypochromasia 1+ Schistocytes None seen Sodium 137 Potassium 4.1 Chloride 101 Carbon Dioxide 33 H Anion Gap 3 L BUN 20 D Creatinine 1.06 Estim Creat Clear Calc 51 Estimated GFR > 60 Glucose 94 Calcium 9.3 Quality VTE Prophylaxis VTE prophylaxis: pharmacologic ordered
--- NOTE | 2025-07-19 15:21 | PHAR ---
HOME MEDS SULINDAC 200 MG TABLETS; TAKE 1 TABLET BY MOUTH TWICE DAILY RIFABUTIN 150 MG CAPSULES; TAKE 2 CAPSULES BY MOUTH DAILY VERIFIED BY PHARMACY
[2025-07-19] MEDS: SULINDAC 200 MG 200 EACH PO (16:54)
[2025-07-19] MEDS: BACLOFEN 10 MG TABLET PO (22:00)
[2025-07-19] MEDS: METOPROLOL SUCCINATE EXT REL 50 MG TABCR PO (22:00)
[2025-07-20] VITALS (17 sets, daily range): BP systolic 120–145; BP diastolic 51–59; PULSE 68–90; RESP 13–18; TEMP 36.4–37.1; O2SAT 90–98
[2025-07-20] MEDS: IPRATROPIUM 0.5 MG/ALBUTEROL SULFATE 2.5 MG AMPUL.NEB 3 ML INHALATION ×4 (02:10→21:19)
[2025-07-20] MEDS: ACETYLCYSTEINE 20% INHAL SOLN 800 MG/4 ML VIAL 200 MG INHALATION ×4 (02:11→21:19)
[2025-07-20] MEDS: LINACLOTIDE 145 MCG CAPSULE 290 MCG PO (05:52)
[2025-07-20] MEDS: ALBUTEROL SULFATE NEB 2.5 MG/3 ML INH INHALATION (06:37)
[2025-07-20 06:41] LABS: Hematocrit 25.5 % (42.0-52.0); Hemoglobin 7.6 g/dL (14.0-18.0); Immature Granulocyte Percent A 0.7 % (0-0.5); Lymphocytes Absolute Auto 0.47 K/mm3 (0.9-3.2); Mean Corpuscular HGB Conc 29.8 g/dl (32-36); Mean Corpuscular Hemoglobin 27.8 pg (26-34); Mean Corpuscular Volume 93.4 fl (80-100); Nucleated Red Blood Cells Absolute Auto 0.000 K/mm3 (0.0-0.012); Nucleated Red Blood Cells Perc 0.0 % (0.0-0.2); Platelet Count Result 176 k/mm3 (150-375); Red Blood Count 2.73 M/mm3 (4.6-6.20); White Blood Count 6.8 K/mm3 (4.5-10.0)
[2025-07-20 07:26] LABS: Anisocytosis 1+; Hypochromasia 1+
[2025-07-20 07:27] LABS: Schistocytes None Seen
[2025-07-20 08:31] LABS: Alanine Aminotransferase 23 U/L (6-50); Albumin Level 3.0 g/dL (3.5-5.1); Alkaline Phosphatase 91 U/L (38-126); Anion Gap 2 mmol/L (4-12); Aspartate Amino Transferase 43 U/L (17-59); Bilirubin,Total 0.5 mg/dL (0.2-1.3); Blood Urea Nitrogen 17 mg/dL (9-20); Calcium 8.9 mg/dL (8.4-10.2); Carbon Dioxide 33 mmol/L (22-30); Chloride 98 mmol/L (98-107); Estimated CRCL calculation 53 ml/min; Estimated Glomerular Filt Rate > 60; Glucose 103 mg/dL (65-110); Magnesium 1.7 mg/dL (1.6-2.3); Potassium 3.9 mmol/L (3.4-5.0); Sodium 133 mmol/L (137-145); Total Protein 6.0 g/dL (6.3-8.2)
[2025-07-20] MEDS: FENOFIBRATE NANOCRYSTALLIZED 145 MG TABLET PO (08:38)
[2025-07-20] MEDS: LOSARTAN POTASSIUM 25 MG TABLET PO (08:38)
[2025-07-20] MEDS: ETHAMBUTOL HCL 400 MG TABLET 1200 MG PO (08:38)
[2025-07-20] MEDS: TAMSULOSIN HCL 0.4 MG CAPSULE PO ×2 (08:38→20:21)
[2025-07-20] MEDS: ATORVASTATIN 40 MG TABLET 80 MG PO (08:38)
[2025-07-20] MEDS: AZITHROMYCIN 250 MG TABLET PO (08:38)
[2025-07-20] MEDS: FUROSEMIDE 40 MG TABLET PO (08:38)
[2025-07-20] MEDS: ASPIRIN 81 MG ENTERIC TABLET PO (08:38)
[2025-07-20] MEDS: PANTOPRAZOLE 40 MG TABLET PO (08:38)
[2025-07-20] MEDS: guaiFENesin 12 HR 600 MG TABCR 1200 MG PO ×2 (08:38→20:21)
[2025-07-20] MEDS: ENOXAPARIN 40 MG/0.4 ML SYRINGE SUB-Q (08:39)
[2025-07-20] MEDS: MORPHINE SULFATE (*CRX) 30 MG TABCR PO ×2 (08:39→20:21)
[2025-07-20] MEDS: buPROPion HCL SR (12 HR) 150 MG TAB PO ×2 (08:39→20:21)
[2025-07-20] MEDS: SERTRALINE HCL 50 MG TABLET PO (08:39)
[2025-07-20] MEDS: RIFABUTIN 150 MG 300 EACH PO (08:40)
[2025-07-20] MEDS: SULINDAC 200 MG 200 EACH PO ×2 (08:40→16:34)
--- NOTE | 2025-07-20 16:59 | PM.IMPN ---
Progress Note: A&P Assessment and Plan (1) Delirium: Code(s): R41.0 - Disorientation, unspecified Status: Acute Assessment and Plan: head CT, 07/18: No acute intracranial abnormality. history of altered mental status that waxes and wanes, hallucinations are new. UA is unremarkable. Patient on morphine at home for chronic pain, UDS showing positive for opiates otherwise unremarkable. High suspicion for delirium that was exacerbated by recent transition from [facility] to back home. Family no longer feels he can safely care for the patient at home, requesting placement. Care coordination consulted. monitor neuro status, currently A&O x4. No current hallucinations. (2) SANDI (acute kidney injury): Code(s): N17.9 - Acute kidney failure, unspecified Status: Acute Assessment and Plan: creatinine 1.06 and BUN 20 today overall improved from admission. Appears to be at baseline today. baseline creatinine: 0.9 - 1.2 trend renal function trend electrolytes, correct as needed (3) SNEHA (mycobacterium avium-intracellulare): Code(s): A31.0 - Pulmonary mycobacterial infection Status: Acute Assessment and Plan: CXR redemonstrated bilateral PNA continue home medications: Ethambutol 1200mg daily, Rifabutin 150mg daily, Azithromycin 500 reduced to 250 mg daily for hearing changes has follow-up [facility] (4) Chronic obstructive pulmonary disease: Qualifiers: COPD type: chronic bronchitis Chronic bronchitis type: unspecified Qualified Code(s): J42 - Unspecified chronic bronchitis Code(s): J44.9 - Chronic obstructive pulmonary disease, unspecified Status: Acute Assessment and Plan: continue home meds: Bevespi 9-4.8mcg HFA inhaler, Breztri 160-9-4.8 HFA q12, Albuterol HFA prn, neb solution Continue Mucinex 1200 mg p.o. q.12 hours no evidence of exacerbation at this time (5) Chronic hypoxic respiratory failure, on home oxygen therapy: Code(s): J96.11 - Chronic respiratory failure with hypoxia; Z99.81 - Dependence on supplemental oxygen Status: Acute Assessment and Plan: now on 4L NC at baseline, no increased requirement at this time. continue to maintain O2 sat greater than 92% had a vest previously, during previous admissions it was recommended by Pulmonary to continue. Ordered. (6) Chronic anemia: Code(s): D64.9 - Anemia, unspecified Status: Acute Assessment and Plan: Hgb 8.1 today. 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 monitor I&Os most recent echo (10/2024): LV function mildly reduced, EF 49%, grade 1 diastolic dysfunction. (8) HTN (hypertension): Qualifiers: Hypertension type: primary hypertension Qualified Code(s): I10 - Essential (primary) hypertension Code(s): I10 - Essential (primary) hypertension Status: Chronic Assessment and Plan: Stable BP. Continue home Losartan 25 mg as pt's renal function is at baseline. Q shift vital signs Plan Pending placement Subjective Date/time seen: 07/20/25 16:59 Interval history: Patient was living at home with the family. Family needs assistance with his care Hence they brought him here. No acute event overnight. Objective Data Vital Signs Vital Signs: Vital Signs - 24 hr 07/19/25 20:00 07/19/25 20:23 07/19/25 20:32 Temperature Pulse Rate 76 77 81 Respiratory Rate 18 18 18 Blood Pressure Pulse Oximetry 96 Oxygen Delivery Nasal Cannula Oxygen Flow Rate 4 Fraction of Inspired Oxygen 36 07/19/25 22:00 07/20/25 02:13 07/20/25 02:22 Temperature 36.9 C Pulse Rate 78 76 77 Respiratory Rate 17 18 18 Blood Pressure 140/57 L Pulse Oximetry 96 Oxygen Delivery Oxygen Flow Rate Fraction of Inspired Oxygen 07/20/25 05:50 07/20/25 06:38 07/20/25 06:47 Temperature 36.8 C Pulse Rate 77 75 79 Respiratory Rate 13 18 18 Blood Pressure 145/59 H Pulse Oximetry 98 Oxygen Delivery Oxygen Flow Rate Fraction of Inspired Oxygen 07/20/25 08:00 07/20/25 08:23 07/20/25 08:24 Temperature Pulse Rate 86 Respiratory Rate 18 Blood Pressure Pulse Oximetry 92 90 Oxygen Delivery Nasal Cannula Nasal Cannula Oxygen Flow Rate 4 3 Fraction of Inspired Oxygen 07/20/25 08:26 07/20/25 13:25 07/20/25 13:32 Temperature Pulse Rate 90 72 75 Respiratory Rate 18 18 18 Blood Pressure Pulse Oximetry Oxygen Delivery Oxygen Flow Rate Fraction of Inspired Oxygen Intake/Output Intake/Output: Intake & Output 07/17/25 07/18/25 07/19/25 07/20/25 23:59 23:59 23:59 23:59 Intake Total 1880 850 880 Output Total 1050 500 700 Balance 830 350 180 Meds/Results Medications: Active Medications Generic Name Dose Route Start Last Admin Trade Name Freq PRN Reason Stop Dose Admin Acetylcysteine 200 mg 07/19/25 02:00 07/20/25 13:27 Acetylcysteine 20% Inhal Soln 800 Mg/4 Ml Vial INHALATION 200 mg Q6HRT GIOVANNY Administration Albuterol 2.5 mg 07/18/25 20:24 07/20/25 06:37 Albuterol Sulfate Neb 2.5 Mg/3 Ml Inh INHALATION 2.5 mg Q4HRT PRN Administration Shortness Of Breath Or Wheezing Albuterol/Ipratropium 3 ml 07/18/25 20:00 07/20/25 13:27 Ipratropium 0.5 Mg/Albuterol Sulfate 2.5 Mg Ampul.Neb 3 Ml INHALATION 3 ml Q6HRT GIOVANNY Administration Aspirin 81 mg 07/19/25 09:00 07/20/25 08:38 Aspirin 81 Mg Enteric Tablet PO 81 mg DAILY GIOVANNY Administration Atorvastatin Calcium 80 mg 07/19/25 09:00 07/20/25 08:38 Atorvastatin 40 Mg Tablet PO 80 mg DAILY GIOVANNY Administration Azithromycin 250 mg 07/19/25 09:00 07/20/25 08:38 Azithromycin 250 Mg Tablet PO 250 mg DAILY GIOVANNY Administration Baclofen 5 mg 07/18/25 20:24 Baclofen 5 Mg Tablet PO TID PRN Muscle Spasm Baclofen 10 mg 07/18/25 21:00 07/19/25 22:00 Baclofen 10 Mg Tablet PO 10 mg HS GIOVANNY Administration Benzonatate 200 mg 07/18/25 20:24 Benzonatate 100 Mg Capsule PO TID PRN Cough Bupropion HCl 150 mg 07/19/25 09:00 07/20/25 08:39 Bupropion Hcl Sr (12 Hr) 150 Mg Tab PO 150 mg Q12HR GIOVANNY Administration Enoxaparin Sodium 40 mg 07/18/25 13:49 07/20/25 08:39 Enoxaparin 40 Mg/0.4 Ml Syringe SUB-Q 40 mg DAILY GIOVANNY Administration Ethambutol HCl 1,200 mg 07/19/25 09:00 07/20/25 08:38 Ethambutol Hcl 400 Mg Tablet PO 1,200 mg DAILY [facility] Administration Fenofibrate 145 mg 07/19/25 09:00 07/20/25 08:38 Fenofibrate Nanocrystallized 145 Mg Tablet PO 145 mg QAM [facility] Administration Furosemide 40 mg 07/20/25 09:00 07/20/25 08:38 Furosemide 40 Mg Tablet PO 40 mg DAILY GIOVANNY Administration Guaifenesin 1,200 mg 07/18/25 21:00 07/20/25 08:38 Guaifenesin 12 Hr 600 Mg Tabcr PO 1,200 mg Q12HR GIOVANNY Administration Hydroxyzine HCl 25 mg 07/18/25 20:24 Hydroxyzine Hcl 25 Mg Tablet PO QID PRN Anxiety Linaclotide 290 mcg 07/19/25 06:30 07/20/25 05:52 Linaclotide 145 Mcg Capsule PO 290 mcg DAILY@0630 [facility] Administration Lorazepam 0.5 mg 07/18/25 20:24 Lorazepam (*Crx) 0.5 Mg Tablet PO BID PRN Anxiety Losartan Potassium 25 mg 07/20/25 09:00 07/20/25 08:38 Losartan Potassium 25 Mg Tablet PO 25 mg DAILY GIOVANNY Administration Metoprolol Succinate 50 mg 07/18/25 21:00 07/19/25 22:00 Metoprolol Succinate Ext Rel 50 Mg Tabcr PO 50 mg HS [facility] Administration Morphine Sulfate 30 mg 07/18/25 20:24 07/20/25 08:39 Morphine Sulfate (*Crx) 30 Mg Tabcr PO 30 mg Q12H PRN Administration Pain 7-10 Nitroglycerin 0.4 mg 07/18/25 20:24 Nitroglycerin Sl 0.4 Mg Tablet SUBLINGUAL Q5M PRN Chest Pain Sulindac 200 Mg 200 mg 07/19/25 17:00 07/20/25 16:34 Tablet Home Med PO 08/18/25 16:59 200 mg BID GIOVANNY Administration Rifabutin 150 Mg 300 mg 07/20/25 09:00 07/20/25 08:40 Capsule Home Med PO 08/19/25 08:59 300 mg DAILY GIOVANNY Administration Pantoprazole Sodium 40 mg 07/19/25 09:00 07/20/25 08:38 Pantoprazole 40 Mg Tablet PO 40 mg QAM GIOVANNY Administration Sertraline HCl 50 mg 07/19/25 09:00 07/20/25 08:39 Sertraline Hcl 50 Mg Tablet PO 50 mg DAILY GIOVANNY Administration Tamsulosin HCl 0.4 mg 07/19/25 09:00 07/20/25 08:38 Tamsulosin Hcl 0.4 Mg Capsule PO 0.4 mg Q12HR GIOVANNY Administration Trazodone HCl 100 mg 07/18/25 21:00 07/19/25 22:00 Trazodone Hcl 50 Mg Tablet PO 100 mg HS GIOVANNY Administration Umeclidinium/Vilanterol 1 puff 07/19/25 08:00 Umeclidinium/Vilanterol 62.5-25 Mcg Ellipta INHALATION DAILYRT [facility] Radiology Results: ITS Impressions Chest X-Ray 07/18/25 08:16 Impression: 1: Extensive patchy bilateral airspace disease, compatible with pneumonia. 2: Small pleural effusions. Head CT 07/18/25 08:26 IMPRESSION: 1. No acute intracranial abnormality. Labs Labs: Laboratory Results - last 24 hr 07/20/25 05:56 WBC 6.8 RBC 2.73 L Hgb 7.6 L Hct 25.5 L MCV 93.4 MCH 27.8 MCHC 29.8 L RDW 16.0 H Plt Count 176 MPV 11.3 H Immature Gran % (Auto) 0.7 H Neut % (Auto) 81.1 H Lymph % (Auto) 6.9 L Bennett % (Auto) 11.2 H Eos % (Auto) 0.1 Baso % (Auto) 0.0 L Lymph # (Auto) 0.47 L Bennett # (Auto) 0.8 H Eos # (Auto) 0.0 Baso # (Auto) 0.0 Abs Immat Gran (auto) 0.05 H Absolute Neuts (auto) 5.5 Absolute Nucleated RBC 0.000 Band Neutrophils % Not Reportable Nucleated RBC % 0.0 Platelet Estimate Adequate Hypochromasia 1+ Anisocytosis 1+ Schistocytes None seen Sodium 133 L Potassium 3.9 Chloride 98 Carbon Dioxide 33 H Anion Gap 2 L BUN 17 Creatinine 1.02 Estim Creat Clear Calc 53 Estimated GFR > 60 Glucose 103 Calcium 8.9 Magnesium 1.7 Total Bilirubin 0.5 AST 43 ALT 23 Alkaline Phosphatase 91 Total Protein 6.0 L Albumin 3.0 L Quality VTE Prophylaxis VTE prophylaxis: pharmacologic ordered (Lovenox)
[2025-07-20] MEDS: BACLOFEN 10 MG TABLET PO (20:21)
[2025-07-20] MEDS: LORazepam (*CRX) 0.5 MG TABLET PO (20:21)
[2025-07-20] MEDS: METOPROLOL SUCCINATE EXT REL 50 MG TABCR PO (20:22)
[2025-07-21] VITALS (15 sets, daily range): BP systolic 76–122; BP diastolic 42–50; PULSE 69–78; RESP 16–18; TEMP 36.7–37.2; O2SAT 92–100
[2025-07-21] MEDS: IPRATROPIUM 0.5 MG/ALBUTEROL SULFATE 2.5 MG AMPUL.NEB 3 ML INHALATION ×4 (02:13→20:12)
[2025-07-21] MEDS: ACETYLCYSTEINE 20% INHAL SOLN 800 MG/4 ML VIAL 200 MG INHALATION ×4 (02:13→20:12)
[2025-07-21] MEDS: LINACLOTIDE 145 MCG CAPSULE 290 MCG PO (06:25)
[2025-07-21 08:23] LABS: Hematocrit 25.7 % (42.0-52.0); Hemoglobin 7.8 g/dL (14.0-18.0); Immature Granulocyte Percent A 2.3 % (0-0.5); Lymphocytes Absolute Auto 0.55 K/mm3 (0.9-3.2); Mean Corpuscular HGB Conc 30.4 g/dl (32-36); Mean Corpuscular Hemoglobin 28.5 pg (26-34); Mean Corpuscular Volume 93.8 fl (80-100); Nucleated Red Blood Cells Absolute Auto 0.000 K/mm3 (0.0-0.012); Nucleated Red Blood Cells Perc 0.0 % (0.0-0.2); Platelet Count Result 156 k/mm3 (150-375); Red Blood Count 2.74 M/mm3 (4.6-6.20); White Blood Count 8.6 K/mm3 (4.5-10.0)
[2025-07-21] MEDS: UMECLIDINIUM/VILANTEROL 62.5-25 MCG ELLIPTA 1 PUFF INHALATION (08:26)
[2025-07-21 08:42] LABS: Alanine Aminotransferase 21 U/L (6-50); Albumin Level 2.9 g/dL (3.5-5.1); Alkaline Phosphatase 82 U/L (38-126); Anion Gap 2 mmol/L (4-12); Aspartate Amino Transferase 32 U/L (17-59); Bilirubin,Total 0.5 mg/dL (0.2-1.3); Blood Urea Nitrogen 19 mg/dL (9-20); Calcium 8.8 mg/dL (8.4-10.2); Carbon Dioxide 34 mmol/L (22-30); Chloride 96 mmol/L (98-107); Estimated CRCL calculation 46 ml/min; Estimated Glomerular Filt Rate 60; Glucose 108 mg/dL (65-110); Potassium 4.1 mmol/L (3.4-5.0); Sodium 132 mmol/L (137-145); Total Protein 5.9 g/dL (6.3-8.2)
[2025-07-21] MEDS: ETHAMBUTOL HCL 400 MG TABLET 1200 MG PO (08:49)
[2025-07-21] MEDS: AZITHROMYCIN 250 MG TABLET PO (08:49)
[2025-07-21] MEDS: PANTOPRAZOLE 40 MG TABLET PO (08:49)
[2025-07-21] MEDS: LOSARTAN POTASSIUM 25 MG TABLET PO (08:49)
[2025-07-21] MEDS: FENOFIBRATE NANOCRYSTALLIZED 145 MG TABLET PO (08:49)
[2025-07-21] MEDS: SERTRALINE HCL 50 MG TABLET PO (08:49)
[2025-07-21] MEDS: buPROPion HCL SR (12 HR) 150 MG TAB PO ×2 (08:49→20:59)
[2025-07-21] MEDS: TAMSULOSIN HCL 0.4 MG CAPSULE PO ×2 (08:49→21:00)
[2025-07-21] MEDS: ATORVASTATIN 40 MG TABLET 80 MG PO (08:49)
[2025-07-21] MEDS: FUROSEMIDE 40 MG TABLET PO (08:49)
[2025-07-21] MEDS: guaiFENesin 12 HR 600 MG TABCR 1200 MG PO ×2 (08:49→20:59)
[2025-07-21] MEDS: ENOXAPARIN 40 MG/0.4 ML SYRINGE SUB-Q (08:50)
[2025-07-21] MEDS: ASPIRIN 81 MG ENTERIC TABLET PO (08:51)
[2025-07-21] MEDS: SULINDAC 200 MG 200 EACH PO ×2 (08:55→17:40)
[2025-07-21] MEDS: RIFABUTIN 150 MG 300 EACH PO (08:55)
[2025-07-21] MEDS: MORPHINE SULFATE (*CRX) 30 MG TABCR PO (09:04)
[2025-07-21] MEDS: SODIUM CHLORIDE 0.9% IV 500 ML 250 ML IV CONT (14:52)
--- NOTE | 2025-07-21 18:38 | P.PNIM_ITS ---
Progress Note: A&P Assessment and Plan (1) Delirium: Code(s): R41.0 - Disorientation, unspecified Status: Acute Assessment and Plan: * head CT, 07/18: No acute intracranial abnormality. * history of altered mental status that waxes and wanes, hallucinations are new. UA is unremarkable. Patient on morphine at home for chronic pain, UDS showing positive for opiates otherwise unremarkable. High suspicion for delirium that was exacerbated by recent transition from [facility] to back home. Family no longer feels he can safely care for the patient at home, requesting placement. Care coordination consulted. * monitor neuro status, currently A&O x4. No current hallucinations. (2) SANDI (acute kidney injury): Code(s): N17.9 - Acute kidney failure, unspecified Status: Acute Assessment and Plan: * creatinine 1.06 and BUN 20 today overall improved from admission. Appears to be at baseline today. * baseline creatinine: 0.9 - 1.2 * trend renal function * trend electrolytes, correct as needed (3) SNEHA (mycobacterium avium-intracellulare): Code(s): A31.0 - Pulmonary mycobacterial infection Status: Acute Assessment and Plan: * CXR redemonstrated bilateral PNA * continue home medications: Ethambutol 1200mg daily, Rifabutin 150mg daily, Azithromycin 500 reduced to 250 mg daily for hearing changes * [facility] (4) Chronic obstructive pulmonary disease: Qualifiers: COPD type: chronic bronchitis Chronic bronchitis type: unspecified Qualified Code(s): J42 - Unspecified chronic bronchitis Code(s): J44.9 - Chronic obstructive pulmonary disease, unspecified Status: Acute Assessment and Plan: * continue home meds: Bevespi 9-4.8mcg HFA inhaler, Breztri 160-9-4.8 HFA q12, Albuterol HFA prn, neb solution * Continue Mucinex 1200 mg p.o. q.12 hours * no evidence of exacerbation at this time (5) Chronic hypoxic respiratory failure, on home oxygen therapy: Code(s): J96.11 - Chronic respiratory failure with hypoxia; Z99.81 - Dependence on supplemental oxygen Status: Acute Assessment and Plan: * now on 4L NC at baseline, no increased requirement at this time. continue to maintain O2 sat greater than 92% * had a vest previously, during previous admissions it was recommended by Pulmonary to continue. Ordered. (6) Chronic anemia: Code(s): D64.9 - Anemia, unspecified Status: Acute Assessment and Plan: * Hgb 8.1 today. 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 * monitor I&Os * most recent echo (10/2024): LV function mildly reduced, EF 49%, grade 1 d iastolic dysfunction. (8) HTN (hypertension): Qualifiers: Hypertension type: primary hypertension Qualified Code(s): I10 - Essential (primary) hypertension Code(s): I10 - Essential (primary) hypertension Status: Chronic Assessment and Plan: * Stable BP. * Continue home Losartan 25 mg as pt's renal function is at baseline. * Q shift vital signs (9) Hypotension: Code(s): I95.9 - Hypotension, unspecified Status: Acute Assessment and Plan: BP 76/42 500 cc IV fluid was given, repeat BP 96/40 Hold antihypertensive medication including losartan, metoprolol, and tamsulosin If he continues to be hypotensive, check Lactic acid, cbc and cmp and contact physician Plan Pending placement Subjective Date/time seen: 07/21/25 18:38 Interval history: He complained lightheadedness today. Vitals with hypotension. Received 500 cc IV bolus. Most recent vital sign was BP 96/44. Patient is not clinically ready for discharge. He was accepted at [facility]. Exam Narrative: APPEARANCE: Awake and alert, complains soreness on the buttock EYES: EOMI HEENT: Normocephalic, atraumatic, OMM RESPIRATORY: No respiratory distress Clear to auscultation bilaterally with no rhonchi wheezing or rales. CARDIOVASCULAR: RRR, S1 and S2 without murmurs rubs or gallops. ABDOMINAL: Soft, nontender, nondistended, no rebound or guarding MSK: 5/5 motor strength throughout his extremities NEURO: Awake and alert. Following commands, speech normal, no focal deficits SKIN:: Warm, dry. No rashes lesions or abrasions PSYCHIATRIC: Normal affect/mood, Objective Data Vital Signs Vital Signs: Vital Signs - 24 hr 07/20/25 20:00 07/20/25 21:19 07/20/25 21:27 Temperature Pulse Rate 71 78 75 Respiratory Rate 13 18 18 Blood Pressure Pulse Oximetry 97 Oxygen Delivery Nasal Cannula Oxygen Flow Rate 4 Fraction of Inspired Oxygen 36 07/20/25 21:28 07/20/25 21:55 07/21/25 02:13 Temperature 37.1 C Pulse Rate 78 71 75 Respiratory Rate 13 18 Blood Pressure 120/53 L Pulse Oximetry 90 97 Oxygen Delivery Nasal Cannula Oxygen Flow Rate 3 Fraction of Inspired Oxygen 07/21/25 02:23 07/21/25 05:48 07/21/25 08:23 Temperature 37.2 C Pulse Rate 73 72 76 Respiratory Rate 18 17 18 Blood Pressure 113/46 L Pulse Oximetry 92 Oxygen Delivery Oxygen Flow Rate Fraction of Inspired Oxygen 07/21/25 08:23 07/21/25 08:50 07/21/25 09:05 Temperature Pulse Rate 78 Respiratory Rate Blood Pressure Pulse Oximetry 94 96 Oxygen Delivery Nasal Cannula Nasal Cannula Nasal Cannula Oxygen Flow Rate 3 3 4 Fraction of Inspired Oxygen 07/21/25 13:27 07/21/25 14:30 07/21/25 14:50 Temperature Pulse Rate 77 Respiratory Rate 18 Blood Pressure 76/42 L 86/46 L Pulse Oximetry Oxygen Delivery Oxygen Flow Rate Fraction of Inspired Oxygen 07/21/25 17:07 Temperature Pulse Rate Respiratory Rate Blood Pressure 96/44 L Pulse Oximetry Oxygen Delivery Oxygen Flow Rate Fraction of Inspired Oxygen Intake/Output Intake/Output: Intake & Output 07/18/25 07/19/25 07/20/25 07/21/25 23:59 23:59 23:59 23:59 Intake Total 5588 901 3772 1620 Output Total 2865 588 3491 1400 Balance 830 350 970 220 Meds/Results Medications: Active Medications Generic Name Dose Route Start Last Admin Trade Name Freq PRN Reason Stop Dose Admin Acetylcysteine 200 mg 07/19/25 02:00 07/21/25 13:26 Acetylcysteine 20% Inhal Soln 800 Mg/4 Ml Vial INHALATION 200 mg Q6HRT GIOVANNY Administration Albuterol 2.5 mg 07/18/25 20:24 07/20/25 06:37 Albuterol Sulfate Neb 2.5 Mg/3 Ml Inh INHALATION 2.5 mg Q4HRT PRN Administration Shortness Of Breath Or Wheezing Albuterol/Ipratropium 3 ml 07/18/25 20:00 07/21/25 13:26 Ipratropium 0.5 Mg/Albuterol Sulfate 2.5 Mg Ampul.Neb 3 Ml INHALATION 3 ml Q6HRT GIOVANNY Administration Aspirin 81 mg 07/19/25 09:00 07/21/25 08:51 Aspirin 81 Mg Enteric Tablet PO 81 mg DAILY GIOVANNY Administration Atorvastatin Calcium 80 mg 07/19/25 09:00 07/21/25 08:49 Atorvastatin 40 Mg Tablet PO 80 mg DAILY GIOVANNY Administration Azithromycin 250 mg 07/19/25 09:00 07/21/25 08:49 Azithromycin 250 Mg Tablet PO 250 mg DAILY GIOVANNY Administration Baclofen 5 mg 07/18/25 20:24 Baclofen 5 Mg Tablet PO TID PRN Muscle Spasm Baclofen 10 mg 07/18/25 21:00 07/20/25 20:21 Baclofen 10 Mg Tablet PO 10 mg HS GIOVANNY Administration Benzonatate 200 mg 07/18/25 20:24 Benzonatate 100 Mg Capsule PO TID PRN Cough Bupropion HCl 150 mg 07/19/25 09:00 07/21/25 08:49 Bupropion Hcl Sr (12 Hr) 150 Mg Tab PO 150 mg Q12HR GIOVANNY Administration Enoxaparin Sodium 40 mg 07/18/25 13:49 07/21/25 08:50 Enoxaparin 40 Mg/0.4 Ml Syringe SUB-Q 40 mg DAILY GIOVANNY Administration Ethambutol HCl 1,200 mg 07/19/25 09:00 07/21/25 08:49 Ethambutol Hcl 400 Mg Tablet PO 1,200 mg DAILY GIOVANNY Administration Fenofibrate 145 mg 07/19/25 09:00 07/21/25 08:49 Fenofibrate Nanocrystallized 145 Mg Tablet PO 145 mg QAM GIOVANNY Administration Furosemide 40 mg 07/20/25 09:00 07/21/25 08:49 Furosemide 40 Mg Tablet PO 40 mg DAILY GIOVANNY Administration Guaifenesin 1,200 mg 07/18/25 21:00 07/21/25 08:49 Guaifenesin 12 Hr 600 Mg Tabcr PO 1,200 mg Q12HR GIOVANNY Administration Hydroxyzine HCl 25 mg 07/18/25 20:24 Hydroxyzine Hcl 25 Mg Tablet PO QID PRN Anxiety Linaclotide 290 mcg 07/19/25 06:30 07/21/25 06:25 Linaclotide 145 Mcg Capsule PO 290 mcg DAILY@0630 GIOVANNY Administration Lorazepam 0.5 mg 07/18/25 20:24 07/20/25 20:21 Lorazepam (*Crx) 0.5 Mg Tablet PO 0.5 mg BID PRN Administration Anxiety Losartan Potassium 25 mg 07/20/25 09:00 07/21/25 08:49 Losartan Potassium 25 Mg Tablet PO 25 mg DAILY GIOVANNY Administration Metoprolol Succinate 50 mg 07/18/25 21:00 07/20/25 20:22 Metoprolol Succinate Ext Rel 50 Mg Tabcr PO 50 mg HS GIOVANNY Administration Morphine Sulfate 30 mg 07/18/25 20:24 07/21/25 09:04 Morphine Sulfate (*Crx) 30 Mg Tabcr PO 30 mg Q12H PRN Administration Pain 7-10 Nitroglycerin 0.4 mg 07/18/25 20:24 Nitroglycerin Sl 0.4 Mg Tablet SUBLINGUAL Q5M PRN Chest Pain Sulindac 200 Mg 200 mg 07/19/25 17:00 07/21/25 17:40 Tablet Home Med PO 08/18/25 16:59 200 mg BID GIOVANNY Administration Rifabutin 150 Mg 300 mg 07/20/25 09:00 07/21/25 08:55 Capsule Home Med PO 08/19/25 08:59 300 mg DAILY GIOVANNY Administration Pantoprazole Sodium 40 mg 07/19/25 09:00 07/21/25 08:49 Pantoprazole 40 Mg Tablet PO 40 mg QAM GIOVANNY Administration Sertraline HCl 50 mg 07/19/25 09:00 07/21/25 08:49 Sertraline Hcl 50 Mg Tablet PO 50 mg DAILY GIOVANNY Administration Tamsulosin HCl 0.4 mg 07/19/25 09:00 07/21/25 08:49 Tamsulosin Hcl 0.4 Mg Capsule PO 0.4 mg Q12HR GIOVANNY Administration Trazodone HCl 100 mg 07/18/25 21:00 07/20/25 20:21 Trazodone Hcl 50 Mg Tablet PO 100 mg HS GIOVANNY Administration Umeclidinium/Vilanterol 1 puff 07/19/25 08:00 07/21/25 08:26 Umeclidinium/Vilanterol 62.5-25 Mcg Ellipta INHALATION 1 puff DAILYRT GIOVANNY Administration Radiology Results: ITS Impressions Chest X-Ray 07/18/25 08:16 Impression: 1: Extensive patchy bilateral airspace disease, compatible with pneumonia. 2: Small pleural effusions. Head CT 07/18/25 08:26 IMPRESSION: 1. No acute intracranial abnormality. Labs Labs: Laboratory Results - last 24 hr 07/21/25 08:15 WBC 8.6 RBC 2.74 L Hgb 7.8 L Hct 25.7 L MCV 93.8 MCH 28.5 MCHC 30.4 L RDW 16.1 H Plt Count 156 MPV 10.9 H Immature Gran % (Auto) 2.3 H Neut % (Auto) 80.8 H Lymph % (Auto) 6.4 L Dickenson % (Auto) 10.1 H Eos % (Auto) 0.3 Baso % (Auto) 0.1 L Lymph # (Auto) 0.55 L Dickenson # (Auto) 0.9 H Eos # (Auto) 0.0 Baso # (Auto) 0.0 Abs Immat Gran (auto) 0.20 H Absolute Neuts (auto) 6.9 H Absolute Nucleated RBC 0.000 Nucleated RBC % 0.0 Sodium 132 L Potassium 4.1 Chloride 96 L Carbon Dioxide 34 H Anion Gap 2 L BUN 19 Creatinine 1.17 Estim Creat Clear Calc 46 Estimated GFR 60 Glucose 108 Calcium 8.8 Total Bilirubin 0.5 AST 32 ALT 21 Alkaline Phosphatase 82 Total Protein 5.9 L Albumin 2.9 L Quality VTE Prophylaxis VTE prophylaxis: pharmacologic ordered (Lovenox)
[2025-07-21] MEDS: BACLOFEN 10 MG TABLET PO (20:59)
[2025-07-21] MEDS: BACLOFEN 5 MG TABLET PO (23:54)
[2025-07-22] VITALS (20 sets, daily range): BP systolic 97–137; BP diastolic 41–63; PULSE 72–95; RESP 16–21; TEMP 36.4–37.1; O2SAT 91–97
[2025-07-22] MEDS: ACETYLCYSTEINE 20% INHAL SOLN 800 MG/4 ML VIAL 200 MG INHALATION ×4 (02:18→19:34)
[2025-07-22] MEDS: IPRATROPIUM 0.5 MG/ALBUTEROL SULFATE 2.5 MG AMPUL.NEB 3 ML INHALATION ×4 (02:19→19:33)
[2025-07-22] MEDS: MORPHINE SULFATE (*CRX) 30 MG TABCR PO (04:25)
[2025-07-22 05:52] LABS: Hematocrit 22.2 % (42.0-52.0); Mean Corpuscular HGB Conc 30.2 g/dl (32-36); Mean Corpuscular Hemoglobin 28.2 pg (26-34); Mean Corpuscular Volume 93.3 fl (80-100); Platelet Count Result 150 k/mm3 (150-375); Red Blood Count 2.38 M/mm3 (4.6-6.20); White Blood Count 7.4 K/mm3 (4.5-10.0)
[2025-07-22 06:04] LABS: Hemoglobin 6.7 g/dL (14.0-18.0)
[2025-07-22 06:16] LABS: Alanine Aminotransferase 20 U/L (6-50); Albumin Level 2.8 g/dL (3.5-5.1); Alkaline Phosphatase 90 U/L (38-126); Anion Gap 3 mmol/L (4-12); Aspartate Amino Transferase 39 U/L (17-59); Bilirubin,Total 0.8 mg/dL (0.2-1.3); Blood Urea Nitrogen 27 mg/dL (9-20); Calcium 8.4 mg/dL (8.4-10.2); Carbon Dioxide 33 mmol/L (22-30); Chloride 95 mmol/L (98-107); Estimated CRCL calculation 38 ml/min; Estimated Glomerular Filt Rate 47; Glucose 129 mg/dL (65-110); Potassium 4.2 mmol/L (3.4-5.0); Sodium 131 mmol/L (137-145); Total Protein 5.6 g/dL (6.3-8.2)
--- NOTE | 2025-07-22 06:23 | PM.EVENT ---
Event Note Event Note Event Note: Nursing staff called with patient having hemoglobin of 6.7. Patient had been trending down throughout the course of the hospitalization. Will hold the patient's Lovenox. Type and screen and 1 unit packed red blood cells have been ordered.
[2025-07-22] MEDS: LINACLOTIDE 145 MCG CAPSULE 290 MCG PO (06:25)
[2025-07-22] MEDS: UMECLIDINIUM/VILANTEROL 62.5-25 MCG ELLIPTA 1 PUFF INHALATION (07:57)
[2025-07-22] MEDS: SODIUM CHLORIDE 0.9% IV 250 ML 30 ML IV CONT (08:48)
[2025-07-22] MEDS: ETHAMBUTOL HCL 400 MG TABLET 1200 MG PO (08:52)
[2025-07-22] MEDS: FENOFIBRATE NANOCRYSTALLIZED 145 MG TABLET PO (08:52)
[2025-07-22] MEDS: buPROPion HCL SR (12 HR) 150 MG TAB PO ×2 (08:52→20:32)
[2025-07-22] MEDS: ASPIRIN 81 MG ENTERIC TABLET PO (08:53)
[2025-07-22] MEDS: AZITHROMYCIN 250 MG TABLET PO (08:53)
[2025-07-22] MEDS: guaiFENesin 12 HR 600 MG TABCR 1200 MG PO ×2 (08:53→20:32)
[2025-07-22] MEDS: SULINDAC 200 MG 200 EACH PO ×2 (08:53→17:09)
[2025-07-22] MEDS: PANTOPRAZOLE 40 MG TABLET PO (08:53)
[2025-07-22] MEDS: SERTRALINE HCL 50 MG TABLET PO (08:53)
[2025-07-22] MEDS: TAMSULOSIN HCL 0.4 MG CAPSULE PO ×2 (08:53→20:32)
[2025-07-22] MEDS: RIFABUTIN 150 MG 300 EACH PO (08:53)
[2025-07-22] MEDS: ATORVASTATIN 40 MG TABLET 80 MG PO (08:53)
--- NOTE | 2025-07-22 11:08 | P.PNIM_ITS ---
Progress Note: A&P Assessment and Plan (1) Delirium: Code(s): R41.0 - Disorientation, unspecified Status: Acute Assessment and Plan: * head CT, 07/18: No acute intracranial abnormality. * history of altered mental status that waxes and wanes, hallucinations are new. UA is unremarkable. Patient on morphine at home for chronic pain, UDS showing positive for opiates otherwise unremarkable. High suspicion for delirium that was exacerbated by recent transition from [facility] to back home. Family no longer feels he can safely care for the patient at home, requesting placement. Care coordination consulted. * monitor neuro status, currently A&O x4. No current hallucinations. (2) SANDI (acute kidney injury): Code(s): N17.9 - Acute kidney failure, unspecified Status: Acute Assessment and Plan: * creatinine 1.06 and BUN 20 today overall improved from admission. Appears to be at baseline today. * baseline creatinine: 0.9 - 1.2 * 07/22 creatinine is 1.43, avoid any nephrogenic agents including contrast and NSAID (3) SNEHA (mycobacterium avium-intracellulare): Code(s): A31.0 - Pulmonary mycobacterial infection Status: Acute Assessment and Plan: * CXR redemonstrated bilateral PNA * continue home medications: Ethambutol 1200mg daily, Rifabutin 150mg daily, Azithromycin 500 reduced to 250 mg daily for hearing changes * [facility] ([facility] Chronic obstructive pulmonary disease: Qualifiers: COPD type: chronic bronchitis Chronic bronchitis type: unspecified Qualified Code(s): J42 - Unspecified chronic bronchitis Code(s): J44.9 - Chronic obstructive pulmonary disease, unspecified Status: Acute Assessment and Plan: * continue home meds: Bevespi 9-4.8mcg HFA inhaler, Breztri 160-9-4.8 HFA q12, Albuterol HFA prn, neb solution * Continue Mucinex 1200 mg p.o. q.12 hours * no evidence of exacerbation at this time (5) Chronic hypoxic respiratory failure, on home oxygen therapy: Code(s): J96.11 - Chronic respiratory failure with hypoxia; Z99.81 - Dependence on supplemental oxygen Status: Acute Assessment and Plan: * now on 4L NC at baseline, no increased requirement at this time. continue to maintain O2 sat greater than 92% * had a vest previously, during previous admissions it was recommended by Pulmonary to continue. Ordered. (6) Chronic anemia: Code(s): D64.9 - Anemia, unspecified Status: Acute Assessment and Plan: * Hgb 8.1 today. 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 * monitor I&Os * most recent echo (10/2024): LV function mildly reduced, EF 49%, grade 1 diastolic dysfunction. (8) HTN (hypertension): Qualifiers: Hypertension type: primary hypertension Qualified Code(s): I10 - Essential (primary) hypertension Code(s): I10 - Essential (primary) hypertension Status: Chronic Assessment and Plan: * Stable BP. * was hypotensive yesterday, will hold his antihypertensive medication inc luding losartan and beta blockers * Q shift vital signs (9) Hypotension: Code(s): I95.9 - Hypotension, unspecified Status: Acute Assessment and Plan: BP 76/42 500 cc IV fluid was given, repeat BP 96/40 Hold antihypertensive medication including losartan, metoprolol, and tamsulosin If he continues to be hypotensive, check Lactic acid, cbc and cmp and contact physician Plan Pending placement Subjective Date/time seen: 07/22/25 11:08 Interval history: overnight his hemoglobin 6.7. sent type and screen, a unit of PRBC ordered. he is not complaining lightheadedness any longer. Exam Narrative: APPEARANCE: Awake and alert, complains soreness on the buttock EYES: EOMI HEENT: Normocephalic, atraumatic, OMM RESPIRATORY: No respiratory distress Clear to auscultation bilaterally with no rhonchi wheezing or rales. CARDIOVASCULAR: RRR, S1 and S2 without murmurs rubs or gallops. ABDOMINAL: Soft, nontender, nondistended, no rebound or guarding MSK: 5/5 motor strength throughout his extremities NEURO: Awake and alert. Following commands, speech normal, no focal deficits SKIN:: Warm, dry. No rashes lesions or abrasions PSYCHIATRIC: Normal affect/mood, Objective Data Vital Signs Vital Signs: Vital Signs - 24 hr 07/21/25 13:27 07/21/25 14:30 07/21/25 14:50 Temperature Pulse Rate 77 Respiratory Rate 18 Blood Pressure 76/42 L 86/46 L Pulse Oximetry Oxygen Delivery Oxygen Flow Rate 07/21/25 17:07 07/21/25 18:59 07/21/25 20:00 Temperature Pulse Rate Respiratory Rate Blood Pressure 96/44 L 114/50 L Pulse Oximetry 100 Oxygen Delivery Nasal Cannula Oxygen Flow Rate 3.5 07/21/25 20:13 07/21/25 20:17 07/21/25 20:26 Temperature Pulse Rate 74 76 Respiratory Rate 18 18 Blood Pressure Pulse Oximetry 94 Oxygen Delivery Nasal Cannula Oxygen Flow Rate 3 07/21/25 20:47 07/22/25 02:19 07/22/25 02:33 Temperature 36.7 C Pulse Rate 69 78 72 Respiratory Rate 16 18 18 Blood Pressure 122/50 L Pulse Oximetry 100 Oxygen Delivery Oxygen Flow Rate 07/22/25 05:08 07/22/25 05:10 07/22/25 07:54 Temperature 37.1 C Pulse Rate 84 87 Respiratory Rate 18 18 Blood Pressure 107/45 L Pulse Oximetry 95 Oxygen Delivery Oxygen Flow Rate 07/22/25 08:00 07/22/25 08:01 07/22/25 08:03 Temperature Pulse Rate 90 Respiratory Rate 18 Blood Pressure Pulse Oximetry 94 91 Oxygen Delivery Nasal Cannula Nasal Cannula Oxygen Flow Rate 3.5 3 07/22/25 09:29 07/22/25 09:45 07/22/25 10:45 Temperature 36.6 C 36.5 C 36.4 C L Pulse Rate 87 83 80 Respiratory Rate 20 20 18 Blood Pressure 99/50 L 99/41 L 119/42 L Pulse Oximetry 96 94 96 Oxygen Delivery Oxygen Flow Rate Intake/Output Intake/Output: Intake & Output 08/27/25 08/28/25 08/29/25 08/30/25 23:59 23:59 23:59 23:59 Intake Total 850 2070 1620 540 Output Total 500 1100 1400 600 Balance 350 970 220 -60 Meds/Results Medications: Active Medications Generic Name Dose Route Start Last Admin Trade Name Freq PRN Reason Stop Dose Admin Acetylcysteine 200 mg 07/19/25 02:00 07/22/25 07:55 Acetylcysteine 20% Inhal Soln 800 Mg/4 Ml Vial INHALATION 200 mg Q6HRT GIOVANNY Administration Albuterol 2.5 mg 07/18/25 20:24 07/20/25 06:37 Albuterol Sulfate Neb 2.5 Mg/3 Ml Inh INHALATION 2.5 mg Q4HRT PRN Administration Shortness Of Breath Or Wheezing Albuterol/Ipratropium 3 ml 07/18/25 20:00 07/22/25 07:55 Ipratropium 0.5 Mg/Albuterol Sulfate 2.5 Mg Ampul.Neb 3 Ml INHALATION 3 ml Q6HRT GIOVANNY Administration Aspirin 81 mg 07/19/25 09:00 07/22/25 08:53 Aspirin 81 Mg Enteric Tablet PO 81 mg DAILY GIOVANNY Administration Atorvastatin Calcium 80 mg 07/19/25 09:00 07/22/25 08:53 Atorvastatin 40 Mg Tablet PO 80 mg DAILY GIOVANNY Administration Azithromycin 250 mg 07/19/25 09:00 07/22/25 08:53 Azithromycin 250 Mg Tablet PO 250 mg DAILY GIOVANNY Administration Baclofen 5 mg 07/18/25 20:24 07/21/25 23:54 Baclofen 5 Mg Tablet PO 5 mg TID PRN Administration Muscle Spasm Baclofen 10 mg 07/18/25 21:00 07/21/25 20:59 Baclofen 10 Mg Tablet PO 10 mg HS GIOVANNY Administration Benzonatate 200 mg 07/18/25 20:24 Benzonatate 100 Mg Capsule PO TID PRN Cough Bupropion HCl 150 mg 07/19/25 09:00 07/22/25 08:52 Bupropion Hcl Sr (12 Hr) 150 Mg Tab PO 150 mg Q12HR GIOVANNY Administration Ethambutol HCl 1,200 mg 07/19/25 09:00 07/22/25 08:52 Ethambutol Hcl 400 Mg Tablet PO 1,200 mg DAILY GIOVANNY Administration Fenofibrate 145 mg 07/19/25 09:00 07/22/25 08:52 Fenofibrate Nanocrystallized 145 Mg Tablet PO 145 mg QAM GOIVANNY Administration Furosemide 40 mg 07/20/25 09:00 07/21/25 08:49 Furosemide 40 Mg Tablet PO 40 mg DAILY GIOVANNY Administration Guaifenesin 1,200 mg 07/18/25 21:00 07/22/25 08:53 Guaifenesin 12 Hr 600 Mg Tabcr PO 1,200 mg Q12HR GIOVANNY Administration Hydroxyzine HCl 25 mg 07/18/25 20:24 Hydroxyzine Hcl 25 Mg Tablet PO QID PRN Anxiety Sodium Chloride 250 mls @ 30 mls/hr 07/22/25 06:20 07/22/25 08:48 Normal Saline Iv IV CONT 07/22/25 14:39 30 mls/hr .Q8H20M STA Administration Linaclotide 290 mcg 07/19/25 06:30 07/22/25 06:25 Linaclotide 145 Mcg Capsule PO 290 mcg DAILY@0630 GIOVANNY Administration Lorazepam 0.5 mg 07/18/25 20:24 07/20/25 20:21 Lorazepam (*Crx) 0.5 Mg Tablet PO 0.5 mg BID PRN Administration Anxiety Morphine Sulfate 30 mg 07/18/25 20:24 07/22/25 04:25 Morphine Sulfate (*Crx) 30 Mg Tabcr PO 30 mg Q12H PRN Administration Pain 7-10 Sulindac 200 Mg 200 mg 07/19/25 17:00 07/22/25 08:53 Tablet Home Med PO 08/18/25 16:59 200 mg BID GIOVANNY Administration Rifabutin 150 Mg 300 mg 07/20/25 09:00 07/22/25 08:53 Capsule Home Med PO 08/19/25 08:59 300 mg DAILY GIOVANNY Administration Pantoprazole Sodium 40 mg 07/19/25 09:00 07/22/25 08:53 Pantoprazole 40 Mg Tablet PO 40 mg QAM GIOVANNY Administration Sertraline HCl 50 mg 07/19/25 09:00 07/22/25 08:53 Sertraline Hcl 50 Mg Tablet PO 50 mg DAILY GIOVANNY Administration Tamsulosin HCl 0.4 mg 07/19/25 09:00 07/22/25 08:53 Tamsulosin Hcl 0.4 Mg Capsule PO 0.4 mg Q12HR GIOVANNY Administration Trazodone HCl 100 mg 07/18/25 21:00 07/21/25 22:13 Trazodone Hcl 50 Mg Tablet PO 100 mg HS GIOVANNY Administration Umeclidinium/Vilanterol 1 puff 07/19/25 08:00 07/22/25 07:57 Umeclidinium/Vilanterol 62.5-25 Mcg Ellipta INHALATION 1 puff DAILYRT GIOVANNY Administration Radiology Results: ITS Impressions Chest X-Ray 07/18/25 08:16 Impression: 1: Extensive patchy bilateral airspace disease, compatible with pneumonia. 2: Small pleural effusions. Head CT 07/18/25 08:26 IMPRESSION: 1. No acute intracranial abnormality. Labs Labs: Laboratory Results - last 24 hr 07/22/25 07/22/25 05:46 06:38 WBC 7.4 RBC 2.38 L Hgb 6.7 L* Hct 22.2 L MCV 93.3 MCH 28.2 MCHC 30.2 L RDW 16.0 H Plt Count 150 MPV 10.7 H Sodium 131 L Potassium 4.2 Chloride 95 L Carbon Dioxide 33 H Anion Gap 3 L BUN 27 H Creatinine 1.43 H Estim Creat Clear Calc 38 Estimated GFR 47 L Glucose 129 H Calcium 8.4 Total Bilirubin 0.8 AST 39 ALT 20 Alkaline Phosphatase 90 Total Protein 5.6 L Albumin 2.8 L Blood Type O Negative Antibody Screen Negative Crossmatch See Detail Quality VTE Prophylaxis VTE prophylaxis: mechanical ordered
[2025-07-22] MEDS: FUROSEMIDE 40 MG TABLET PO (12:43)
[2025-07-22 14:09] LABS: Alveolar/Arterial O2 Gradient 148.5 mmHg; Fractional Inspired Oxygen 36 %; HCO3 ABG 27.3 mEq/l (22.0-26.0); Oxygen Content ABG 11.5 %vol (16.0-22.0); Oxygen Saturation ABG 91.0 % (95.0-100.0); PCO2 ABG 42.6 mmHg (35.0-45.0); PO2 ABG 58.8 mmHg (80.0-100.0); PO2 FiO2 Ratio Arterial Blood 1.63 %
[2025-07-22 14:10] LABS: Liters per Minute 4.0 LPM; Modified Allen's Test Pass; Site Drawn LEFT RADIAL
[2025-07-22 15:28] LABS: Add Urine Microscopic? YES; Appearance Urine Clear (Clear); Glucose Urine UA Negative (Negative); Leukocyte Esterase Ur Negative LEU/UL (Negative); Nitrate Urine Negative (Negative); Specific Grav Ur 1.013 (1.001-1.035)
[2025-07-22 17:24] LABS: Hematocrit 27.5 % (42.0-52.0); Hemoglobin 8.6 g/dL (14.0-18.0)
[2025-07-22] MEDS: BACLOFEN 10 MG TABLET PO (20:32)
[2025-07-23] VITALS (9 sets, daily range): BP systolic 154; BP diastolic 67; PULSE 80–95; RESP 16–18; TEMP 37.1; O2SAT 94–99
[2025-07-23] MEDS: IPRATROPIUM 0.5 MG/ALBUTEROL SULFATE 2.5 MG AMPUL.NEB 3 ML INHALATION ×3 (02:22→13:59)
[2025-07-23] MEDS: ACETYLCYSTEINE 20% INHAL SOLN 800 MG/4 ML VIAL 200 MG INHALATION ×3 (02:22→13:59)
[2025-07-23] MEDS: LINACLOTIDE 145 MCG CAPSULE 290 MCG PO (05:37)
[2025-07-23 05:44] LABS: Hematocrit 29.8 % (42.0-52.0); Hemoglobin 9.2 g/dL (14.0-18.0); Mean Corpuscular HGB Conc 30.9 g/dl (32-36); Mean Corpuscular Hemoglobin 28.5 pg (26-34); Mean Corpuscular Volume 92.3 fl (80-100); Platelet Count Result 151 k/mm3 (150-375); Red Blood Count 3.23 M/mm3 (4.6-6.20); White Blood Count 7.7 K/mm3 (4.5-10.0)
[2025-07-23 06:07] LABS: Alanine Aminotransferase 24 U/L (6-50); Albumin Level 3.0 g/dL (3.5-5.1); Alkaline Phosphatase 100 U/L (38-126); Anion Gap 5 mmol/L (4-12); Aspartate Amino Transferase 49 U/L (17-59); Bilirubin,Total 1.5 mg/dL (0.2-1.3); Blood Urea Nitrogen 25 mg/dL (9-20); Calcium 8.8 mg/dL (8.4-10.2); Carbon Dioxide 33 mmol/L (22-30); Chloride 94 mmol/L (98-107); Estimated CRCL calculation 41 ml/min; Estimated Glomerular Filt Rate 52; Glucose 97 mg/dL (65-110); Potassium 4.1 mmol/L (3.4-5.0); Sodium 132 mmol/L (137-145); Total Protein 6.2 g/dL (6.3-8.2)
--- NOTE | 2025-07-23 08:30 | P.PNIM_ITS ---
Progress Note: A&P Assessment and Plan (1) Delirium: Code(s): R41.0 - Disorientation, unspecified Status: Acute Assessment and Plan: * head CT, 07/18: No acute intracranial abnormality. * history of altered mental status that waxes and wanes, hallucinations are new. UA is unremarkable. Patient on morphine at home for chronic pain, UDS showing positive for opiates otherwise unremarkable. High suspicion for delirium that was exacerbated by recent transition from [facility] to back home. Family no longer feels he can safely care for the patient at home, requesting placement. Care coordination consulted. * monitor neuro status, currently A&O x4. No current hallucinations. (2) SANDI (acute kidney injury): Code(s): N17.9 - Acute kidney failure, unspecified Status: Acute Assessment and Plan: * creatinine 1.06 and BUN 20 today overall improved from admission. Appears to be at baseline today. * baseline creatinine: 0.9 - 1.2 * 07/23 creatinine is 1.32-improved avoid any nephrogenic agents including contrast and NSAID (3) SNEHA (mycobacterium avium-intracellulare): Code(s): A31.0 - Pulmonary mycobacterial infection Status: Acute Assessment and Plan: * CXR redemonstrated bilateral PNA * continue home medications: Ethambutol 1200mg daily, Rifabutin 150mg daily, Azithromycin 500 reduced to 250 mg daily for hearing changes * [facility] ([facility]) Chronic obstructive pulmonary disease: Qualifiers: COPD type: chronic bronchitis Chronic bronchitis type: unspecified Qualified Code(s): J42 - Unspecified chronic bronchitis Code(s): J44.9 - Chronic obstructive pulmonary disease, unspecified Status: Acute Assessment and Plan: * continue home meds: Bevespi 9-4.8mcg HFA inhaler, Breztri 160-9-4.8 HFA q12, Albuterol HFA prn, neb solution * Continue Mucinex 1200 mg p.o. q.12 hours * no evidence of exacerbation at this time (5) Chronic hypoxic respiratory failure, on home oxygen therapy: Code(s): J96.11 - Chronic respiratory failure with hypoxia; Z99.81 - Dependence on supplemental oxygen Status: Acute Assessment and Plan: * now on 4L NC at baseline, no increased requirement at this time. continue to maintain O2 sat greater than 92% * had a vest previously, during previous admissions it was recommended by Pulmonary to continue. Ordered. (6) Chronic anemia: Code(s): D64.9 - Anemia, unspecified Status: Acute Assessment and Plan: * Hgb 8.1 today. Iron study in May, iron 75 TIBC 211 % saturation 36 * baseline in the 8s * Status post 1 unit PRBC transfusion, hemoglobin today 9.2 * no active bleeding site, no hematochezia or hematemesis or tarry stool * Okay to continue chemical DVT prophylaxis (7) Combined systolic and diastolic congestive heart failure: Qualifiers: Heart failure chronicity: acute on chronic Qualified Code(s): I50.43 - Acute on chronic combined systolic (congestive) and diastolic (congestive) heart failure Code(s): I50.40 - Unspecified combined systolic (congestive) and diastolic (congestive) heart failure Status: Acute Assessment and Plan: * Continue Lasix as there are no acute signs of SANDI and renal function is at baseline. * monitor I&Os * most recent echo (10/2024): LV function mildly reduced, EF 49%, grade 1 diastolic dysfunction. (8) HTN (hypertension): Qualifiers: Hypertension type: primary hypertension Qualified Code(s): I10 - Essential (primary) hypertension Code(s): I10 - Essential (primary) hypertension Status: Chronic Assessment and Plan: * Stable BP. * was hypotensive yesterday, will hold his antihypertensive medication including losartan and beta blockers * Q shift vital signs (9) Hypotension: Code(s): I95.9 - Hypotension, unspecified Status: Acute Assessment and Plan: BP 76/42 500 cc IV fluid was given, repeat BP 96/40 Hold antihypertensive medication including losartan, metoprolol, and tamsulosin If he continues to be hypotensive, check Lactic acid, cbc and cmp and contact physician (10) Dementia: Qualifiers: Dementia behavioral or psychological symptom: unspecified whether behavioral, psychotic, or mood disturbance or anxiety Dementia severity: unspecified severity Dementia type: unspecified type Qualified Code(s): F03.90 - Unspecified dementia, unspecified severity, without behavioral disturbance, psychotic disturbance, mood disturbance, and anxiety Code(s): F03.90 - Unspecified dementia, unspecified severity, without behavioral disturbance, psychotic disturbance, mood disturbance, and anxiety Status: Acute (11) Anemia: Qualifiers: Anemia type: unspecified type Qualified Code(s): D64.9 - Anemia, unspecified Code(s): D64.9 - Anemia, unspecified Status: Acute Plan Pending placement Subjective Date/time seen: 07/23/25 08:30 Interval history: No acute events overnight. His youngest son was at the bedside. Patient was oriented to place, person, time and situation. Exam Narrative: APPEARANCE: Awake and alert, complains soreness on the buttock EYES: EOMI HEENT: Normocephalic, atraumatic, OMM RESPIRATORY: No respiratory distress Clear to auscultation bilaterally with no rhonchi wheezing or rales. CARDIOVASCULAR: RRR, S1 and S2 without murmurs rubs or gallops. ABDOMINAL: Soft, nontender, nondistended, no rebound or guarding MSK: 5/5 motor strength throughout his extremities NEURO: Awake and alert. Following commands, speech normal, no focal deficits SKIN:: Warm, dry. No rashes lesions or abrasions PSYCHIATRIC: Normal affect/mood, Objective Data Vital Signs Vital Signs: Vital Signs - 24 hr 07/22/25 09:29 07/22/25 09:45 07/22/25 10:45 Temperature 36.6 C 36.5 C 36.4 C L Pulse Rate 87 83 80 Respiratory Rate 20 20 18 Blood Pressure 99/50 L 99/41 L 119/42 L Pulse Oximetry 96 94 96 Oxygen Delivery Oxygen Flow Rate 07/22/25 11:45 07/22/25 12:45 07/22/25 13:27 Temperature 36.7 C 36.6 C Pulse Rate 79 92 91 Respiratory Rate 19 20 18 Blood Pressure 122/48 L 97/63 L Pulse Oximetry 97 93 Oxygen Delivery Oxygen Flow Rate 07/22/25 13:39 07/22/25 13:46 07/22/25 19:34 Temperature 36.7 C Pulse Rate 95 94 88 Respiratory Rate 18 21 H 16 Blood Pressure 137/43 L Pulse Oximetry 95 Oxygen Delivery Oxygen Flow Rate 07/22/25 19:44 07/22/25 20:00 07/22/25 21:25 Temperature 36.7 C Pulse Rate 92 86 Respiratory Rate 16 18 Blood Pressure 114/41 L Pulse Oximetry 97 95 Oxygen Delivery High Flow Therapy with Na Oxygen Flow Rate 6 07/23/25 02:22 07/23/25 02:30 07/23/25 02:31 Temperature Pulse Rate 88 90 Respiratory Rate 16 16 Blood Pressure Pulse Oximetry 99 Oxygen Delivery Nasal Cannula Oxygen Flow Rate 6 07/23/25 06:00 Temperature 37.1 C Pulse Rate 95 Respiratory Rate 18 Blood Pressure 154/67 H Pulse Oximetry 94 Oxygen Delivery Oxygen Flow Rate Intake/Output Intake/Output: Intake & Output 07/20/25 07/21/25 07/22/25 07/23/25 23:59 23:59 23:59 23:59 Intake Total 2070 1620 1920 Output Total 1100 1400 1850 1000 Balance 970 220 70 -1000 Meds/Results Medications: Active Medications Generic Name Dose Route Start Last Admin Trade Name Freq PRN Reason Stop Dose Admin Acetylcysteine 200 mg 07/19/25 02:00 07/23/25 02:22 Acetylcysteine 20% Inhal Soln 800 Mg/4 Ml Vial INHALATION 200 mg Q6HRT GIOVANNY Administration Albuterol 2.5 mg 07/18/25 20:24 07/20/25 06:37 Albuterol Sulfate Neb 2.5 Mg/3 Ml Inh INHALATION 2.5 mg Q4HRT PRN Administration Shortness Of Breath Or Wheezing Albuterol/Ipratropium 3 ml 07/18/25 20:00 07/23/25 02:22 Ipratropium 0.5 Mg/Albuterol Sulfate 2.5 Mg Ampul.Neb 3 Ml INHALATION 3 ml Q6HRT GIOVANNY Administration Aspirin 81 mg 07/19/25 09:00 07/22/25 08:53 Aspirin 81 Mg Enteric Tablet PO 81 mg DAILY GIOVANNY Administration Atorvastatin Calcium 80 mg 07/19/25 09:00 07/22/25 08:53 Atorvastatin 40 Mg Tablet PO 80 mg DAILY GIOVANNY Administration Azithromycin 250 mg 07/19/25 09:00 07/22/25 08:53 Azithromycin 250 Mg Tablet PO 250 mg DAILY GIOVANNY Administration Baclofen 5 mg 07/18/25 20:24 07/21/25 23:54 Baclofen 5 Mg Tablet PO 5 mg TID PRN Administration Muscle Spasm Baclofen 10 mg 07/18/25 21:00 07/22/25 20:32 Baclofen 10 Mg Tablet PO 10 mg HS GIOVANNY Administration Benzonatate 200 mg 07/18/25 20:24 Benzonatate 100 Mg Capsule PO TID PRN Cough Bupropion HCl 150 mg 07/19/25 09:00 07/22/25 20:32 Bupropion Hcl Sr (12 Hr) 150 Mg Tab PO 150 mg Q12HR GIOVANNY Administration Ethambutol HCl 1,200 mg 07/19/25 09:00 07/22/25 08:52 Ethambutol Hcl 400 Mg Tablet PO 1,200 mg DAILY GIOVANNY Administration Fenofibrate 145 mg 07/19/25 09:00 07/22/25 08:52 Fenofibrate Nanocrystallized 145 Mg Tablet PO 145 mg QAM GIOVANNY Administration Furosemide 40 mg 07/20/25 09:00 07/22/25 12:43 Furosemide 40 Mg Tablet PO 40 mg DAILY GIOVANNY Administration Guaifenesin 1,200 mg 07/18/25 21:00 07/22/25 20:32 Guaifenesin 12 Hr 600 Mg Tabcr PO 1,200 mg Q12HR GIOVANNY Administration Hydroxyzine HCl 25 mg 07/18/25 20:24 Hydroxyzine Hcl 25 Mg Tablet PO QID PRN Anxiety Linaclotide 290 mcg 07/19/25 06:30 07/23/25 05:37 Linaclotide 145 Mcg Capsule PO 290 mcg DAILY@0630 GIOVANNY Administration Lorazepam 0.5 mg 07/18/25 20:24 07/20/25 20:21 Lorazepam (*Crx) 0.5 Mg Tablet PO 0.5 mg BID PRN Administration Anxiety Morphine Sulfate 30 mg 07/18/25 20:24 07/22/25 04:25 Morphine Sulfate (*Crx) 30 Mg Tabcr PO 30 mg Q12H PRN Administration Pain 7-10 Sulindac 200 Mg 200 mg 07/19/25 17:00 07/22/25 17:09 Tablet Home Med PO 08/18/25 16:59 200 mg BID GIOVANNY Administration Rifabutin 150 Mg 300 mg 07/20/25 09:00 07/22/25 08:53 Capsule Home Med PO 08/19/25 08:59 300 mg DAILY GIOVANNY Administration Pantoprazole Sodium 40 mg 07/19/25 09:00 07/22/25 08:53 Pantoprazole 40 Mg Tablet PO 40 mg QAM GIOVANNY Administration Sertraline HCl 50 mg 07/19/25 09:00 07/22/25 08:53 Sertraline Hcl 50 Mg Tablet PO 50 mg DAILY GIOVANNY Administration Tamsulosin HCl 0.4 mg 07/19/25 09:00 07/22/25 20:32 Tamsulosin Hcl 0.4 Mg Capsule PO 0.4 mg Q12HR GIOVANNY Administration Trazodone HCl 100 mg 07/18/25 21:00 07/22/25 22:01 Trazodone Hcl 50 Mg Tablet PO 100 mg HS GIOVANNY Administration Umeclidinium/Vilanterol 1 puff 07/19/25 08:00 07/22/25 07:57 Umeclidinium/Vilanterol 62.5-25 Mcg Ellipta INHALATION 1 puff DAILYRT GIOVANNY Administration Radiology Results: ITS Impressions Chest X-Ray 07/18/25 08:16 Impression: 1: Extensive patchy bilateral airspace disease, compatible with pneumonia. 2: Small pleural effusions. Head CT 07/18/25 08:26 IMPRESSION: 1. No acute intracranial abnormality. Labs Labs: Laboratory Results - last 24 hr 07/22/25 07/22/25 07/22/25 06:38 14:00 15:10 WBC RBC Hgb Hct MCV MCH MCHC RDW Plt Count MPV Puncture Site Left radial ABG pH 7.425 ABG pCO2 42.6 ABG pO2 58.8 L ABG PO2/FiO2 Ratio 1.63 ABG HCO3 27.3 H ABG O2 Saturation 91.0 L ABG O2 Content 11.5 L ABG Base Excess 2.7 A-a Gradient 148.5 Oxyhemoglobin 89.8 L Total Hemoglobin 9.1 L O2 Delivery Device Nasal cannula O2 Liters/Min 4.0 FiO2 36 Sodium Potassium Chloride Carbon Dioxide Anion Gap BUN Creatinine Estim Creat Clear Calc Estimated GFR Glucose Calcium Total Bilirubin AST ALT Alkaline Phosphatase Total Protein Albumin Urine Color Yellow Urine Appearance Clear Urine pH 5.5 Ur Specific [place] 1.013 Urine Protein Trace Urine Glucose (UA) Negative Urine Ketones Negative Ur Blood (Man) Negative Urine Nitrate Negative Urine Bilirubin Negative Urine Urobilinogen 1.0 Ur Leukocyte Esterase Negative Urine RBC 0-2 Urine WBC 0-5 Ur Squamous Epith Cells None seen Urine Bacteria None seen Urine Casts 6-10 Hyaline Casts Present Blood Type O Negative Antibody Screen Negative Crossmatch See Detail 07/22/25 07/23/25 17:18 05:09 WBC 7.7 RBC 3.23 L Hgb 8.6 L 9.2 L Hct 27.5 L 29.8 L MCV 92.3 MCH 28.5 MCHC 30.9 L RDW 15.9 H Plt Count 151 MPV 11.5 H Puncture Site ABG pH ABG pCO2 ABG pO2 ABG PO2/FiO2 Ratio ABG HCO3 ABG O2 Saturation ABG O2 Content ABG Base Excess A-a Gradient Oxyhemoglobin Total Hemoglobin O2 Delivery Device O2 Liters/Min FiO2 Sodium 132 L Potassium 4.1 Chloride 94 L Carbon Dioxide 33 H Anion Gap 5 BUN 25 H Creatinine 1.32 H Estim Creat Clear Calc 41 Estimated GFR 52 L Glucose 97 Calcium 8.8 Total Bilirubin 1.5 H AST 49 ALT 24 Alkaline Phosphatase 100 Total Protein 6.2 L Albumin 3.0 L Urine Color Urine Appearance Urine pH Ur Specific [place] Urine Protein Urine Glucose (UA) Urine Ketones Ur Blood (Man) Urine Nitrate Urine Bilirubin Urine Urobilinogen Ur Leukocyte Esterase Urine RBC Urine WBC Ur Squamous Epith Cells Urine Bacteria Urine Casts Hyaline Casts Blood Type Antibody Screen Crossmatch Quality VTE Prophylaxis VTE prophylaxis: mechanical ordered
[2025-07-23] MEDS: ATORVASTATIN 40 MG TABLET 80 MG PO (08:37)
[2025-07-23] MEDS: PANTOPRAZOLE 40 MG TABLET PO (08:37)
[2025-07-23] MEDS: ASPIRIN 81 MG ENTERIC TABLET PO (08:37)
[2025-07-23] MEDS: ETHAMBUTOL HCL 400 MG TABLET 1200 MG PO (08:37)
[2025-07-23] MEDS: TAMSULOSIN HCL 0.4 MG CAPSULE PO (08:37)
[2025-07-23] MEDS: guaiFENesin 12 HR 600 MG TABCR 1200 MG PO (08:37)
[2025-07-23] MEDS: SERTRALINE HCL 50 MG TABLET PO (08:37)
[2025-07-23] MEDS: buPROPion HCL SR (12 HR) 150 MG TAB PO (08:37)
[2025-07-23] MEDS: FUROSEMIDE 40 MG TABLET PO (08:37)
[2025-07-23] MEDS: FENOFIBRATE NANOCRYSTALLIZED 145 MG TABLET PO (08:37)
[2025-07-23] MEDS: AZITHROMYCIN 250 MG TABLET PO (08:37)
[2025-07-23] MEDS: SULINDAC 200 MG 200 EACH PO ×2 (08:38→17:29)
[2025-07-23] MEDS: RIFABUTIN 150 MG 300 EACH PO (08:38)
[2025-07-23] MEDS: MORPHINE SULFATE (*CRX) 30 MG TABCR PO (08:43)
[2025-07-23] MEDS: ENOXAPARIN 40 MG/0.4 ML SYRINGE SUB-Q (08:44)
--- NOTE | 2025-07-23 14:14 | P.DS_ITS ---
DS: Admitting Diagnosis Discharge Date 07/23/2025 Admitting Diagnosis encephalopathy DS: Discharge Diagnosis Discharge Diagnosis (1) Hypotension: Code(s): I95.9 - Hypotension, unspecified Status: Acute (2) COPD (chronic obstructive pulmonary disease): Code(s): J44.9 - Chronic obstructive pulmonary disease, unspecified Status: Acute (3) Dementia: Qualifiers: Dementia behavioral or psychological symptom: unspecified whether behavioral, psychotic, or mood disturbance or anxiety Dementia severity: unspecified severity Dementia type: unspecified type Qualified Code(s): F03.90 - Unspecified dementia, unspecified severity, without behavioral disturbance, psychotic disturbance, mood disturbance, and anxiety Code(s): F03.90 - Unspecified dementia, unspecified severity, without behavioral disturbance, psychotic disturbance, mood disturbance, and anxiety Status: Acute (4) SANDI (acute kidney injury): Code(s): N17.9 - Acute kidney failure, unspecified Status: Acute (5) Delirium: Code(s): R41.0 - Disorientation, unspecified Status: Acute (6) SNEHA (mycobacterium avium-intracellulare): Code(s): A31.0 - Pulmonary mycobacterial infection Status: Acute (7) Anemia: Qualifiers: Anemia type: unspecified type Qualified Code(s): D64.9 - Anemia, unspecified Code(s): D64.9 - Anemia, unspecified Status: Acute Plan (1) Delirium: Code(s): R41.0 - Disorientation, unspecified Status: Acute Assessment and Plan: * head CT, 07/18: No acute intracranial abnormality. * history of altered mental status that waxes and wanes, hallucinations are new. UA is unremarkable. Patient on morphine at home for chronic pain, UDS showing positive for opiates otherwise unremarkable. High suspicion for delirium that was exacerbated by recent transition from [facility] to back home. Family no longer feels he can safely care for the patient at home, requesting placement. Care coordination consulted. * monitor neuro status, currently A&O x4. No current hallucinations. (2) SANDI (acute kidney injury): Code(s): N17.9 - Acute kidney failure, unspecified Status: Acute Assessment and Plan: * creatinine 1.06 and BUN 20 today overall improved from admission. Appears to be at baseline today. * baseline creatinine: 0.9 - 1.2 * 07/22 creatinine is 1.43, avoid any nephrogenic agents including contrast and NSAID (3) SNEHA (mycobacterium avium-intracellulare): Code(s): A31.0 - Pulmonary mycobacterial infection Status: Acute Assessment and Plan: * CXR redemonstrated bilateral PNA * continue home medications: Ethambutol 1200mg daily, Rifabutin 150mg daily, Azithromycin 500 reduced to 250 mg daily for hearing changes * has follow-up with Lana ID 08/08 (4) Chronic obstructive pulmonary disease: Qualifiers: COPD type: chronic bronchitis Chronic bronchitis type: unspecified Qualified Code(s): J42 - Unspecified chronic bronchitis Code(s): J44.9 - Chronic obstructive pulmonary disease, unspecified Status: Acute Assessment and Plan: * continue home meds: Bevespi 9-4.8mcg HFA inhaler, Breztri 160-9-4.8 HFA q12, Albuterol HFA prn, neb solution * Continue Mucinex 1200 mg p.o. q.12 hours * no evidence of exacerbation at this time (5) Chronic hypoxic respiratory failure, on home oxygen therapy: Code(s): J96.11 - Chronic respiratory failure with hypoxia; Z99.81 - Dependence on supplemental oxygen Status: Acute Assessment and Plan: * now on 4L NC at baseline, no increased requirement at this time. continue to maintain O2 sat greater than 92% * had a vest previously, during previous admissions it was recommended by Pulmonary to continue. Ordered. (6) Chronic anemia: Code(s): D64.9 - Anemia, unspecified Status: Acute Assessment and Plan: * Hgb 8.1 today. 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 * monitor I&Os * most recent echo (10/2024): LV function mildly reduced, EF 49%, grade 1 diastolic dysfunction. (8) HTN (hypertension): Qualifiers: Hypertension type: primary hypertension Qualified Code(s): I10 - Essential (primary) hypertension Code(s): I10 - Essential (primary) hypertension Status: Chronic Assessment and Plan: * Stable BP. * was hypotensive yesterday, will hold his antihypertensive medication including losartan and beta blockers * Q shift vital signs (9) Hypotension: Code(s): I95.9 - Hypotension, unspecified Status: Acute Assessment and Plan: BP 76/42 500 cc IV fluid was given, repeat BP 96/40 DS: Summary Hospital Course Reason for hospitalization: Altered mental status Hospital Course: Per H&P 80 y/o M with PMH of COPD, SNEHA, heart failure, chronic pulmonary aspergillosis, ischemic cardiomyopathy, Pseudomonas infection, COPD, BPH, GERD, HTN, chronic respiratory failure on home O2, NSTEMI, essential tremor, polio (195), and aortic stenosis presents here with confusion. The patient presents back to [place] on 07/18 from home for further evaluation of confusion. The patient has had to admissions within the last few months for respiratory concerns. Initial admission was from 05/30 - 06/04 which required transfer to [facility] for Infectious Disease and pulmonology services. He was admitted there from 06/04 - 06/07. He return to [facility] on 06/15 for continued shortness of breath and hypoxia. Treatment was continued for SNEHA pneumonia. He was then discharged on 06/23 to home with home health services. Patient then returned on 06/29 for same symptoms, treatment was continued for SNEHA PNA, and was discharged on 07/02 to [facility]. He was discharged from [facility] yesterday, 07/17, to home. He is returning today as his son's report he has been acting strangely at home and has now developed visual hallucinations. They report he has had a fluctuating mental status, however the hallucinations overnight are unusual for him. The patient denies any hallucinations today. They do not feel they can safely care for him at home and they were unable to have patient placed back in senior living/assisted living. The patient currently denies worsening shortness of breath. Continues to have a productive cough. Initial VS at presentation: 97.9? F, HR 84, RR 14, 126/64, and 98% on 4L nasal cannula. ED workup showed: No leukocytosis, hemoglobin 8.7 (at baseline), creatinine 1.71 and GFR 39, glucose 119, initial troponin negative, UA unremarkable, UDS positive for opiates, ethanol negative. CXR showed extensive patchy bilateral airspace disease compatible with pneumonia and small pleural effusions. Head CT showed no acute intracranial abnormality. In his stay, his hemoglobin was 6.7 and he received a unit of blood transfusion. Hemoglobin is stable now. He was also hypotensive which responds to IV fluid 500 cc bolus. He developed SANDI superimposed on CKD. SANDI was improving. Instructed to see his primary care physician with blood work in 1 week. Prior to discharge to [facility] facility, he was seen and evaluated. He was alert and oriented to person, time, place and situation. His youngest son was at bedside and plan was discussed with patient and his son. Patient was discharged to [facility] in stable condition. Time Spent with Patient Time attestation: Total time spent providing and/or coordinating discharge services: DS: Data Data Completed and Pending Labs on day of discharge: Labs from last 24 hours 07/23/25 07/22/25 07/22/25 05:09 17:18 15:10 WBC 7.7 RBC 3.23 L Hgb 9.2 L 8.6 L Hct 29.8 L 27.5 L MCV 92.3 MCH 28.5 MCHC 30.9 L RDW 15.9 H Plt Count 151 MPV 11.5 H Sodium 132 L Potassium 4.1 Chloride 94 L Carbon Dioxide 33 H Anion Gap 5 BUN 25 H Creatinine 1.32 H Estim Creat Clear Calc 41 Estimated GFR 52 L Glucose 97 Calcium 8.8 Total Bilirubin 1.5 H AST 49 ALT 24 Alkaline Phosphatase 100 Total Protein 6.2 L Albumin 3.0 L Urine Color Yellow Urine Appearance Clear Urine pH 5.5 Ur Specific [place] 1.013 Urine Protein Trace Urine Glucose (UA) Negative Urine Ketones Negative Ur Blood (Man) Negative Urine Nitrate Negative Urine Bilirubin Negative Urine Urobilinogen 1.0 Ur Leukocyte Esterase Negative Urine RBC 0-2 Urine WBC 0-5 Ur Squamous Epith Cells None seen Urine Bacteria None seen Urine Casts 6-10 Hyaline Casts Present Discharge Plan Discharge Attending physician on discharge: Delvin Rivera Consulting providers: Ann Soto Discharging Clinician: Daphnie Serna Anticipated Discharge Date/Time: 07/23/25 12:45 Patient Disposition: SNF Activity: unlimited Diet: regular Discharge Instructions: Take precautions to avoid falls. Rise slowly from a lying or sitting position. Pause before standing or walking. Avoid NSAIDs (ibuprofen, naproxen, Aleve). Tylenol is safe to take. Follow-up with PCP. Patient Language: Tunisian Stand Alone Forms: General Discharge Information Follow-up/Referrals: Rogelio Moeller DO [Primary Care Provider, [facility]] - 1 Week Discharge Medications: Continued (DME) nebulizer and compressor Device See Rx Instructions .Route Qty: 1 0RF Rx Instructions: As directed (DME) nebulizer accessories Kit See Rx Instructions .Route Qty: 1 0RF Rx Instructions: As directed Bevespi Aerosphere 9-4.8 mcg HFA aerosol inhaler 2 puff inhalation BID Qty: 10.7 0RF ethambutol 400 mg tablet 1,200 mg PO DAILY tamsulosin 0.4 mg capsule 0.4 mg PO BID esomeprazole magnesium 20 mg capsule,delayed release(DR/EC) 40 mg PO DAILY rifabutin 150 mg capsule 300 mg PO DAILY Qty: 60 3RF Patient Comments: take for 21 days, started on 06/08/25 azithromycin [Zithromax] 250 mg Tablet 250 mg PO DAILY Qty: 36 0RF baclofen 10 mg tablet 5 mg PO TID PRN (Reason: muscle spasm) Qty: 30 0RF guaifenesin [Mucus Relief ER] 600 mg Tablet Extended Release 12hr 1,200 mg PO Q12HR Qty: 60 0RF acetylcysteine 200 mg/mL (20 %) Solution 200 mg inhalation Q6HRT Qty: 180 0RF ipratropium-albuterol 0.5 mg-3 mg(2.5 mg base)/3 mL Solution For Nebulization 3 ml inhalation Q6HRT Qty: 180 0RF baclofen 10 mg Tablet 10 mg PO HS Qty: 30 0RF morphine 30 mg tablet extended release 30 mg PO Q12H PRN (Reason: pain) 3 Days Qty: 6 0RF benzonatate 100 mg Capsule 200 mg PO TID PRN (Reason: Cough) Qty: 30 0RF olopatadine [Eye Allergy Itch Relief] 0.2 % drops 1 drp EACH EYE DAILY PRN (Reason: itching) Qty: 5 0RF aspirin 81 mg Tablet,Delayed Release (Dr/Ec) 81 mg PO DAILY Qty: 90 0RF fenofibrate 160 mg tablet 160 mg PO DAILY Qty: 90 2RF albuterol sulfate 90 mcg/actuation HFA aerosol inhaler 2 puff INHALATION Q4H PRN (Reason: Shortness Of Breath Or Wheezing) Qty: 8.5 5RF nitroglycerin 0.4 mg tablet, sublingual 0.4 mg sublingual Q5M PRN (Reason: chest pain) Qty: 25 3RF Rx Instructions: do not exceed 3 doses per episode metoprolol succinate 50 mg tablet extended release 24 hr 50 mg PO HS Qty: 90 1RF lorazepam 0.5 mg tablet 0.5 mg PO BID PRN (Reason: anxiety) Qty: 60 3RF sulindac 200 mg tablet 200 mg PO BID Qty: 180 1RF atorvastatin 80 mg tablet 80 mg PO DAILY Qty: 90 1RF sertraline 50 mg tablet 50 mg PO DAILY Qty: 90 3RF hydroxyzine HCl 25 mg tablet 25 mg PO QID PRN (Reason: anxiety) Qty: 50 2RF trazodone 100 mg tablet 100 mg PO HS Qty: 90 1RF bupropion HCl 150 mg tablet sustained-release 12 hr 150 mg PO BID Qty: 180 2RF Discontinued losartan 25 mg tablet 25 mg PO DAILY Linzess 290 mcg capsule See Rx Instructions .ROUTE .COMPLEX Qty: 90 3RF Dose Instruction: TAKE 1 CAPSULE BY MOUTH DAILY Rx Instructions: TAKE 1 CAPSULE BY MOUTH DAILY albuterol sulfate 2.5 mg /3 mL (0.083 %) solution for nebulization 2.5 mg inhalation Q4H PRN (Reason: shortness of breath or wheezing) Qty: 90 3RF No Action furosemide 20 mg tablet 40 mg PO DAILY Other Ambulatory Orders: Basic Metabolic Panel (Routine) Timeframe: 4 Days Location: Determined by Patient Ordered By: Daphnie Serna Date of admission: 07/21/25 15:15 Primary Care Provider: Rogelio Moeller Admitting Provider: Delvin Rivera Attending physician on admission: Delvin Rivera Condition: Stable
== END 2025-07-23 18:00 | DRG 682 ==
LOC: ANHED 10:20 → ANH3MEDSUR 14:31
PROVIDERS: Nurse Practitioner Adult Health; Student in an Organized Health Care Education/Training Program; Admitting Provider Internal Medicine; Emergency Provider Student in an Organized Health Care Education/Training Program; PCP Family Medicine; Visit Provider Student in an Organized Health Care Education/Training Program
DX: N17.9 Acute kidney failure, unspecified (principal); E43 Unspecified severe protein-calorie malnutrition; I50.43 Acute on chronic combined systolic (congestive) and diastolic (congestive) heart failure; A31.0 Pulmonary mycobacterial infection; B44.1 Other pulmonary aspergillosis; I13.0 Hypertensive heart and chronic kidney disease with heart failure and stage 1 through stage 4 chronic kidney disease, or unspecified chronic kidney disease; J96.11 Chronic respiratory failure with hypoxia; I95.9 Hypotension, unspecified; R41.0 Disorientation, unspecified; N18.30 Chronic kidney disease, stage 3 unspecified; F03.90 Unspecified dementia, unspecified severity, without behavioral disturbance, psychotic disturbance, mood disturbance, and anxiety; D64.9 Anemia, unspecified; Z68.22 Body mass index [BMI] 22.0-22.9, adult; I25.2 Old myocardial infarction; I25.5 Ischemic cardiomyopathy; I35.0 Nonrheumatic aortic (valve) stenosis; J44.89 Other specified chronic obstructive pulmonary disease; G25.0 Essential tremor; E78.5 Hyperlipidemia, unspecified; M48.061 Spinal stenosis, lumbar region without neurogenic claudication; K21.9 Gastro-esophageal reflux disease without esophagitis; N40.0 Benign prostatic hyperplasia without lower urinary tract symptoms; G89.29 Other chronic pain; Z66 Do not resuscitate; Z99.81 Dependence on supplemental oxygen; Z75.1 Person awaiting admission to adequate facility elsewhere; Z79.51 Long term (current) use of inhaled steroids; Z79.82 Long term (current) use of aspirin; Z79.891 Long term (current) use of opiate analgesic; Z79.899 Other long term (current) drug therapy; Z85.830 Personal history of malignant neoplasm of bone; Z86.12 Personal history of poliomyelitis; Z87.891 Personal history of nicotine dependence; Z90.49 Acquired absence of other specified parts of digestive tract; Z95.5 Presence of coronary angioplasty implant and graft
CPT/HCPCS: 36415; 36430; 36600; 70450; 71046; 80048; 80053; 80307; 81001; 81003; 82077; 82805; 83735; 84484; 85014; 85018; 85025; 85027; 86850; 86900; 86901; 86923; 93005; 94640; 94667; 94668; 96360; 96361; 96372; 97110; 97161; 97166; 97530; 99285; A9270; G0378; J1650; J7030; J7040; J7050; J7120; P9016

== ENCOUNTER 2025-07-29 15:39 | Inpatient (IN) | payer MEDICARE, MEDICAID, SELFPAY ==
--- NOTE | ~2025-07-29 | XR_ITS ---
EXAMINATION: XR abdomen/kub 1V DATE: 08/02/2025 10:40 INDICATION: Constipation. Abdominal pain. TECHNIQUE: 3 images of the abdomen were obtained. COMPARISON: None. FINDINGS: Small opacities in the lower lungs. Possible small right-sided pleural effusion. Moderate to large amount of stool and air in the nondilated large bowel. Moderate amount of air in nondilated small bowel. There are a few less than 1.0 cm calcifications projecting over the pelvis which may represent phleboliths, however, a distal ureteral stone or bladder stone or possible. IMPRESSION: 1. Nonspecific abdomen with a moderate to large amount of stool. If symptoms persist or worsen, consider a CT of the abdomen and pelvis for further assessment. 2. Small opacities in the lower lungs. 3. Possible small right-sided pleural effusion. Reviewed, dictated and finalized at location Q. IMPRESSION: 1. Nonspecific abdomen with a moderate to large amount of stool. If symptoms pe rsist or worsen, consider a CT of the abdomen and pelvis for further assessment . 2. Small opacities in the lower lungs. 3. Possible small right-sided pleural effusion.
--- NOTE | ~2025-07-29 | CT_ITS ---
EXAMINATION: CT abdomen pelvis wo con, 07/30/2025 10:00 CDT HISTORY: R lower abd pain COMPARISON: No comparisons available. TECHNIQUE: CT scan of the abdomen and pelvis was performed without IV contrast. One or more of the following dose reduction techniques were used: automated exposure control, adjustment of the mA and/or kV according to patient size, use of iterative reconstruction technique. Unless otherwise stated, incidental findings do not require dedicated follow up imaging FINDINGS: CT abdomen: LUNG BASES: The lung bases demonstrate chronic changes. Bilateral bronchiectasis and small infiltrates with trace effusions. LIVER: Scattered subcentimeter probable liver cysts. SPLEEN: Punctate calcified splenic granulomas. The spleen is prominent.. KIDNEYS: Right Kidney: Right kidney simple appearing renal cysts the largest lower pole 2 x 2 cm. Left Kidney: Unremarkable. No calculi. No hydronephrosis ADRENAL GLANDS: Unremarkable. PANCREAS: Mild pancreatic atrophy. GALLBLADDER/BILIARY: Gallbladder contracted. STOMACH AND ESOPHAGUS: Visualized stomach and esophagus within normal limits. BOWEL/MESENTERY: Moderate fecal content, no colitis or diverticulitis. Appendix normal. Mesentery normal. Small bowel normal. ADENOPATHY/RETROPERITONEUM: No lymphadenopathy. AORTA/VASCULATURE: Aneurysmal dilatation of the abdominal aorta above the bifurcation maximally measures 4.1 cm. FREE FLUID OR FREE AIR: None. CT pelvis: SOLID ORGANS/REPRODUCTIVE: Prostate enlargement correlate with PSA. BLADDER: There is contrast within the bladder from previous exam. The bladder is empty. OSSEOUS STRUCTURES: No acute osseous abnormality.No suspicious lesions. OVERLYING SOFT TISSUES: Unremarkable. IMPRESSION: 1. No acute intra-abdominal process. 2. Aortic aneurysm outpatient CTA recommended 3. Incidental findings above Reviewed, dictated and finalized at location A.
--- NOTE | ~2025-07-29 | CT_ITS ---
EXAMINATION: CTA chest PE protocol DATE: 07/29/2025 18:17 INDICATION: Tachycardia. TECHNIQUE: Computed tomography (CT) pulmonary angiogram of the chest was performed with 100 mL Omnipaque-350 intravenous contrast. Additional 3D reconstructions utilizing coronal maximum intensity projection (MIP) were performed. Automated exposure control and iterative reconstruction technique were employed. The dose-length product was 266.23 mGy-cm. COMPARISON: 06/29/2025 FINDINGS: No definitive pulmonary embolism. Sensitivity decreased in some of the smaller subsegmental pulmonary arteries primarily in the lower lungs due to small amount of respiratory motion. Mild emphysema. Significant interval decrease in patchy airspace opacities previously seen in the bilateral upper lobes have consistent with improving pneumonia. Bronchial wall thickening scattered mucous plugging and additional improving patchy consolidation in the bilateral lower lobes and right middle lobe also consistent with improving pneumonia pneumonia. There is a chronic very small right pleural effusion with peripheral smooth pleural thickening consistent with likely chronic exudative effusion. Additional pleural thickening seen posteriorly in the left lower lung. There are small regions of round atelectasis and bandlike pleural parenchymal scarring at the periphery of the bilateral lower lobes and right middle lobe. There is secondary volume loss in the bilateral lower lobes. Cardiomegaly. Atherosclerotic coronary artery calcifications and likely stenting along the left anterior descending coronary artery. No pericardial effusion. Thoracic aorta is normal in caliber with no dissection. There is mild right hilar and mediastinal adenopathy which is likely reactive. Small sliding-type hiatal hernia. Hepatosplenomegaly. Multiple low- attenuation hepatic cysts. Multiple calcifications scattered throughout the spleen consistent with old granulomatous disease. There are couple cysts in the right kidney. Incompletely visualized fusiform ectasia of the infrarenal aorta which measures up to 3.7 cm in maximal diameter. Mild thoracic spondylosis with bridging osteophytes at multiple levels consistent with diffuse idiopathic skeletal hyperostosis (DISH). IMPRESSION: 1. No pulmonary embolism. Sensitivity decreased in some of the smaller subsegmental pulmonary arteries particularly at the lung bases due to some respiratory motion. 2. Emphysema with interval improvement in patchy pneumonia in the right middle and bilateral upper and lower lobes. 3. Chronic likely small right pleural effusion. 4. Pleural thickening the bilateral lung bases with regions of peripheral round atelectasis and pleural parenchymal scarring at the bilateral lower lobes. 5. Cardiomegaly. 6. Small sliding-type hiatal hernia. 7. Hepatosplenomegaly. 8. Ectatic infrarenal abdominal aorta measuring up to 3.7 cm. Reviewed, dictated and finalized at location A. IMPRESSION: 1. No pulmonary embolism. Sensitivity decreased in some of the smaller subsegme ntal pulmonary arteries particularly at the lung bases due to some respiratory motion. 2. Emphysema with interval improvement in patchy pneumonia in the right middle and bilateral upper and lower lobes. 3. Chronic likely small right pleural effusion. 4. Pleural thickening the bilateral lung bases with regions of peripheral round atelectasis and pleural parenchymal scarring at the bilateral lower lobes. 5. Cardiomegaly. 6. Small sliding-type hiatal hernia. 7. Hepatosplenomegaly. 8. Ectatic infrarenal abdominal aorta measuring up to 3.7 cm.
--- NOTE | ~2025-07-29 | XR_ITS ---
EXAMINATION: XR chest 1V portable, 07/30/2025 6:05 CDT HISTORY: Dyspnea COMPARISON: No comparisons available. Technique: Single view. Findings: Right-sided small basilar infiltrate and effusion. No pneumothorax. Heart is normal size. Mediastinal and hilar contours are within normal limits. Bony thorax no acute abnormality. Impression: Right lower lobe pneumonia Reviewed, dictated and finalized at location A. Impression: Right lower lobe pneumonia
--- NOTE | ~2025-07-29 | XR_ITS ---
EXAMINATION: XR chest 2V DATE: 07/29/2025 17:08 INDICATION: Shortness of breath TECHNIQUE: frontal and lateral views of the chest were obtained. COMPARISON: Chest radiograph dated 07/18/[address] dated 06/29/2025 FINDINGS: Hyperexpansion lungs with increased lucency and architectural distortion in the upper lung zones consistent with emphysema better appreciated on prior CT. Persistent coarse reticular opacities in the right mid to lower and left lower lung zones. Unchanged chronic small right pleural effusion with blunting at the costophrenic angle and posterior sulcus. No pneumothorax or left-sided pleural effusion. Heart size is normal. IMPRESSION: 1. Emphysema with persistent coarse reticular pattern in the right mid to lower and left lower lung zones which in acute setting could represent mild pulmonary edema, pneumonia or atelectasis or more chronic interstitial lung disease. 2. Chronic small right pleural effusion. Reviewed, dictated and finalized at location A. IMPRESSION: 1. Emphysema with persistent coarse reticular pattern in the right mid to lower and left lower lung zones which in acute setting could represent mild pulmonar y edema, pneumonia or atelectasis or more chronic interstitial lung disease. 2. Chronic small right pleural effusion.
--- NOTE | ~2025-07-29 | XR_ITS ---
Examination: XR chest 2V Clinical History: pneumonia follow up on abx Comparison: 07/30/2025 x-ray 07/29/2025 CTA chest Technique: Portable AP Findings: Heart size normal. Right effusion persists. Chronic bibasilar atelectasis and scarring. Emphysema. No acute bony abnormality. IMPRESSION: 1. No significant change or worsening. 2. Chronic right pleural effusion. 3. Chronic bibasilar scarring. 4. No definite foci of airspace disease. Reviewed, dictated and finalized at location R.
[2025-07-29 15:46] VITALS: BP 106/48; PULSE 114; RESP 20; TEMP 36.8; O2SAT 99
--- NOTE | 2025-07-29 15:51 | ECG_ITS ---
Test Date: 2025-07-29 17:23:57 Measurements Intervals [place] Rate: 96 P: 68 ID: [id number] QRS: -50 QRSD: 118 T: 50 QT: 387 QTc: 489 Interpretive Statements SINUS RHYTHM LEFT ATRIAL ENLARGEMENT [-0.15mV P WAVE IN V1/V2] INCOMPLETE RIGHT BUNDLE BRANCH BLOCK [90+ ms QRS DURATION, TERMINAL R IN V1/V2, 40+ ms S IN I/aVL/V4/V5/V6] LEFT ANTERIOR FASCICULAR BLOCK [QRS AXIS <= -45, QR IN I, RS IN II] MODERATE ST DEPRESSION [0.05+ mV ST DEPRESSION] Compared to ECG 07/18/2025 07:42:00 Atrial abnormality now present Left anterior fascicular block now present First degree AV block no longer present Electronically Signed On 07-30-2025 15:50:26 CDT by Bert Earl M.D.
[2025-07-29 16:33] LABS: Hematocrit 31.7 % (42.0-52.0); Hemoglobin 10.0 g/dL (14.0-18.0); Immature Granulocyte Percent A 0.7 % (0-0.5); Lymphocytes Absolute Auto 0.41 K/mm3 (0.9-3.2); Mean Corpuscular HGB Conc 31.5 g/dl (32-36); Mean Corpuscular Hemoglobin 27.9 pg (26-34); Mean Corpuscular Volume 88.3 fl (80-100); Nucleated Red Blood Cells Absolute Auto 0.000 K/mm3 (0.0-0.012); Nucleated Red Blood Cells Perc 0.0 % (0.0-0.2); Platelet Count Result 242 k/mm3 (150-375); Red Blood Count 3.59 M/mm3 (4.6-6.20); White Blood Count 19.9 K/mm3 (4.5-10.0)
[2025-07-29 16:44] LABS: Alanine Aminotransferase 25 U/L (6-50); Albumin Level 3.4 g/dL (3.5-5.1); Alkaline Phosphatase 97 U/L (38-126); Anion Gap 6 mmol/L (4-12); Aspartate Amino Transferase 56 U/L (17-59); Bilirubin,Total 1.3 mg/dL (0.2-1.3); Blood Urea Nitrogen 15 mg/dL (9-20); Calcium 8.7 mg/dL (8.4-10.2); Carbon Dioxide 26 mmol/L (22-30); Chloride 96 mmol/L (98-107); Estimated Glomerular Filt Rate > 60; Glucose 106 mg/dL (65-110); Potassium 4.0 mmol/L (3.4-5.0); Sodium 128 mmol/L (137-145); Total Protein 6.9 g/dL (6.3-8.2)
--- OUTSIDE RECORDS SUMMARY | 2025-07-29 17:34 | XMS_ITS | Clinical Summary ---
Author Organization [facility] [address] Address [address] [place] [address] Care Team Providers Care Laminating Press Operator Name Role Phone Naveed Mcintosh MD Primary Care Prov ider Salas Gottlieb MD Unavailable [phone] Allergies Active Allergy Reactions Criticality Noted Date [...] 80 mg tabletIndicatio ns:Coronary artery disease involving makah coronary artery of makah heart without angina pectoris TAKE 1 TABLET [...] 2 (two) times a day 4 Active metoprolol XL (TOPROL-XL) 50 mg [...] by mouth daily 21 tablet 5 Active losartan (COZAAR) 25 mg tabletIndicatio ns:Coronary artery disease involving makah coronary artery of makah heart without angina pectoris TAKE 1 TABLET(25 MG) BY MOUTH DAILY 90 tablet 5 Active Active Problems Problem Noted Date [...] with Dr. 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 His previous pulmonary workup included alpha 1 [...] with Dr. 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 His previous pulmonary workup included alpha 1 [...] with Dr. 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 ID was consulted for MAC and patient was started on triple therapy for this 06/04. CT chest did show basilar consolidation suggestive of aspiration +/- pneumonia and PNA PCR + pseudomonas Since arrival to [facility], he has been on 3 L [...] with Dr. 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 His previous pulmonary workup included alpha 1 [...] GERD, depression, BPH who was transferred to [facility] from [facility] 06/04 for further management of PNA and [...] with Dr. Adams who communicated that outpatient latin american studies professor has done immunoglobulin levels, and patient has [...] of COPD exacerbation/pneumonia/brochiectasis exacerbation. Since arrival to [facility], he has been on 3 L [...] Plan (06/04/2025 3:59 AM CDT): Transferred from [facility] for pulm and ID evaluation of recurrent bacterial PNA and MAC infection. 11 episodes of PNA requiring abx therapy in past two years. Hx of COPD on baseline 4L NC reported. 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 ID was consulted for MAC and patient was started on triple therapy for this 06/04. CT chest did show basilar consolidation suggestive of aspiration +/- pneumonia and PNA PCR + pseudomonas Since arrival to [facility], he has been on 3 L [...] GERD, depression, BPH who was transferred to [facility] from [facility] 06/04 for further management of PNA and [...] with Dr. Adams who communicated that outpatient latin american studies professor has done immunoglobulin levels, and patient has [...] of COPD exacerbation/pneumonia/brochiectasis exacerbation. Since arrival to [facility], he has been on 3 L [...] Plan (06/04/2025 3:59 AM CDT): Transferred from [facility] for pulm and ID evaluation of recurrent bacterial PNA and MAC infection. 11 episodes of PNA requiring abx therapy in past two years. Hx of COPD on baseline 4L NC reported. MAC infection on recent sputum cultures, evaluated by ID here at [facility] and recommended starting rifabutin 300mg daily, [...] - chest xray, defer further imaging until loans consultant recs to avoid unnecessary repeat radiation [...] with Dr. 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 His previous pulmonary workup included alpha 1 [...] with Dr. 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 His previous pulmonary workup included alpha 1 [...] with Dr. 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 ID was consulted for MAC and patient was started on triple therapy for this 06/04. CT chest did show basilar consolidation suggestive of aspiration +/- pneumonia and PNA PCR + pseudomonas Since arrival to [facility], he has been on 3 L [...] obtaining repeat serial sputum AFB cultures -appreciate DAREK colleagues Assessment & Plan (06/04/2025 6:33 PM CDT): Elmer López is a 80 y.o. 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 Adams who communicated that outpatient latin american studies professor has done immunoglobulin levels, and patient has [...] of COPD exacerbation/pneumonia/brochiectasis exacerbation. Since arrival to [facility], he has been on 3 L [...] Plan (06/04/2025 3:59 AM CDT): Transferred from [facility] for pulm and ID evaluation of recurrent bacterial PNA and MAC infection. 11 episodes of PNA requiring abx therapy in past two years. Hx of COPD on baseline 4L NC reported. MAC infection on recent sputum cultures, evaluated by ID here at [facility] and recommended starting rifabutin 300mg daily, [...] - chest xray, defer further imaging until loans consultant recs to avoid unnecessary repeat radiation [...] DAYLIN. Follows with Dr. Clemons at the [facility] in [place], [place]. 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 Follows with Dr. Clemons at the [facility] in [place], [place]. 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 Follows with Dr. Clemons at the [facility] in [place], [place]. Assessment & Plan (06/04/2025 3:59 AM CDT): Reported hx of coronary stenting. No chest pain - continue asa, statin, tricor Spinal stenosis 09/26/2015 Pain of right lower extremity 09/26/2015 Notalgia 09/25/2015 Resolved Problems Problem Noted Date Diagnosed Date Resolved Date Shortness of breath 06/04/2025 06/05/20 Assessment & Plan (06/05/2025 11:35 PM CDT): [...] with Dr. 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 His previous pulmonary workup included alpha 1 [...] Plan (06/04/2025 3:59 AM CDT): Transferred from [facility] for pulm and ID evaluation of recurrent bacterial PNA and MAC infection. 11 episodes of PNA requiring abx therapy in past two years. Hx of COPD on baseline 4L NC reported. MAC infection on recent sputum cultures, evaluated by ID here at [facility] and recommended starting rifabutin 300mg daily, [...] - chest xray, defer further imaging until loans consultant recs to avoid unnecessary repeat radiation [...] and go back to home inhaler. - GUM SPRAYER evaluation - Will f/u [facility]CA. - Will [...] valve, BID vest therapy and DuoNebs. - GUM SPRAYER evaluation - Continue current antibiotics (meropenem, azithro) [...] Type Department Care Team Description 06/30/2025 Telephone [facility] Infectious [facility] [address] [place] [phone] Alyssa Chen 06/26/2025 SHOP/CHAP Subsequent Outreach [facility] OP CASE MANAGEMENT [address] [place] [address] Yarelis Rachel, DOMESTIC VIOLENCE ADVOCATE 06/21/2025 Telephone [facility] [address] [place] [phone] Gladys Larson, STAFF COMBAT INFORMATION CENTER OFFICER 06/20/2025 Telephone [facility] [address] [place] [phone] Alyssa Chne 06/19/2025 SHOP/CHAP Subsequent Outreach [facility] OP CASE MANAGEMENT [address] [place] [address] Yarelis Rachel, DOMESTIC VIOLENCE ADVOCATE 06/16/2025 SHOP/CHAP Subsequent Outreach [facility] OP CASE MANAGEMENT [address] [place] [address] Yarelis Rachel, DOMESTIC VIOLENCE ADVOCATE 06/15/2025 Documentation Internal Medicine John Guzmán MD Transfer Notification 06/15/2025 SHOP/CHAP Subsequent Outreach [facility] OP CASE MANAGEMENT [address] [place] [address] Yarelis Rachel, DOMESTIC VIOLENCE ADVOCATE 06/15/2025 Telephone [facility] [address] [place] [phone] Daniella Leach 06/15/2025 Telephone [facility] [address] [place] [phone] Alyssa Chen 06/13/2025 Telephone [facility] [address] [place] [phone] Alyssa Chen 06/08/2025 SHOP/CHAP Initial Outreach [facility] OP CASE MANAGEMENT [address] [place] [address] Yarelis Rachel, DOMESTIC VIOLENCE ADVOCATE 06/08/2025 Telephone [facility] Home Care Services [address] [place] [address] [phone] Lindsay Quiroz 06/08/2025 SHOP/CHAP Initial Eligibility Review [facility] OP CASE MANAGEMENT [address] [place] [address] Yarelis Rachel, DOMESTIC VIOLENCE ADVOCATE 06/07/2025 Telephone [facility] Home Care Services [address] [place] [phone] Lindsay Quiroz 06/07/2025 Telephone [facility] Home Care Services [address] [place] [phone] Lindsay Quiroz 06/07/2025 Orders Only [facility] Scheduling [address] [place] [phone] Camilo Shi MD Shortness of breath (Primary Dx) 06/06/2025 3:30 PM CDT - 06/06/2025 11:59 PM CDT Hospital Encounter [facility] [address] [place] [address] Discharge Disposition: Discharge to home or self care 06/04/2025 1:12 AM CDT - 06/07/2025 3:09 PM CDT Hospital Encounter [address] [phone] Lukas Paredes MD Kocak, Keith Coreas MD [place], MD Tomer Marina, Dianna Flores MD Acute on chronic hypoxic respiratory failure (HCC) (Primary Dx) Discharge Disposition: Discharge to home, home health skilled care 06/02/2025 Telephone [facility] Medicine Infectious Diseases [address] [place] [phone] Enma Tate RMA 06/02/2025 Telephone [facility] Medicine Infectious Diseases [address] [place] [phone] Alyssa Chen 05/30/2025 Documentation Internal Medicine Lukas Paredes MD 05/30/2025 Telephone [facility] Medicine Infectious Diseases [address] [phone] Alyssa Chen 05/30/2025 [facility] [address] [phone] Enma TateZIA 05/04/2025 Telephone [facility] Medicine Infectious Diseases [address] [phone] Kaylin Horvath, TAKER OUT 05/04/2025 [facility] [address] [place] [phone] Daniella Leach 05/02/2025 1:22 PM CDT - 05/02/2025 11:59 PM CDT Hospital Encounter [facility] [address] [place] [address] Discharge Disposition: Discharge to home or self care 05/02/2025 10:24 AM CDT - 05/02/2025 11:59 PM CDT Hospital Encounter [facility] [address] [place] [phone] Diagnosis unknown Discharge Disposition: Discharge to home or self care 05/02/2025 10:17 AM CDT - 05/02/2025 11:59 PM CDT Hospital Encounter [facility] [address] [place] [phone] Discharge Disposition: Discharge to home or self care 05/02/2025 8:40 AM CDT [facility] [address] [place] [phone] Gladys Larson, KALPESH Mycobacterial infection, unspecified from Last 3 Months Surgical History Surgery [...] drink = 0.6 oz pur e alcohol) [facility] Utilities Answer Date Recorded In the past 12 months has [employer], gas, oil, or water [employer] threatened to shut off services in your [...] often do you attend chur ch or scientology services? Never 06/08/2025 Do you belong to any clubs o r organizations such as taoist groups, unions, fraternal or athletic groups, or [...] in the past 12 m [facility], were you homeless or living in a [place] facility (including now)? No 06/08/2025 Personal Safety Answer Date Recorded Have you ever been in or are you currently in a harmful physical or emotional relationship or is someone making you feel afraid or unsafe? 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 73 m2 Comment: [...] MD LAB BLOOD ORDERABLES Final Resu lt [facility] [place] [address] * (ABNORMAL) Differential, auto (06/06/2025 9:15 PM CDT) [facility] Neutrophil abs 5.92 1.50 - 6.50 K/cumm Imm gran abs 0.14(H) 0.00 - 0.10 K/cumm [facility] Lymphocyte abs 1.20 0.80 - 3.30 K/cumm [facility] Monocyte abs 1.06(H) 0.20 - 0.80 K/cumm [facility] Eosinophil abs 0.40 0.00 - 0.50 K/cumm [facility] Basophil abs 0.03 0.00 - 0.10 K/cumm [facility] Neutrophil pct 67.7 % [facility] Comment: Interpretive Data Percent cell count reference ranges are not reported, since discordance with absolute values may lead to misinterpretation of CBC data. Current Interpretive Data was last revised on 2018. Imm gran pct 1.6 % [facility] Comment: Interpretive Data Percent cell count reference ranges are not reported, since discordance with absolute values may lead to misinterpretation of CBC data. Current Interpretive Data was last revised on 2018. Lymphocyte pct 13.7 % [facility] Comment: Interpretive Data Percent cell count reference ranges are not reported, since discordance with absolute values may lead to misinterpretation of CBC data. Current Interpretive Data was last revised on 2018. Monocyte pct 12.1 % [facility] Comment: Interpretive Data Percent cell count reference ranges are not reported, since discordance with absolute values may lead to misinterpretation of CBC data. Current Interpretive Data was last revised on 2018. Eosinophil pct 4.6 % [facility] Comment: Interpretive Data Percent cell count reference ranges are not reported, since discordance with absolute values may lead to misinterpretation of CBC data. Current Interpretive Data was last revised on 2018. Basophil pct 0.3 % [facility] Comment: Interpretive Data Percent cell count reference ranges are not reported, since discordance with absolute values may lead to misinterpretation of CBC data. Current Interpretive Data was last revised on 2018. Blood 06/06/2025 9:15 PM CDT 06/06/2025 10:33 PM CDT Dianna Root MD LAB BLOOD ORDERABLES Final Resu lt [facility] [address] [facility] Department of Laboratories [place], [place] [phone] * (ABNORMAL) CBC with auto differential (06/06/2025 9:15 PM CDT) WBC 8.75 3.80 - 9.90 K/cumm Hgb 8.9(L) 13.0 - 17.5 g/dL [facility] Hct 28.3(L) 38.9 - 50.3 % [facility] Plt 263 150 - 400 K/cumm [facility] MPV 10.8 9.1 - 12.3 fL [facility] RBC 3.18(L) 4.30 - 5.80 M/cumm [facility] MCV 89.0 81.3 - 96.4 fL [facility] MCH 28.0 27.1 - 33.3 pg [facility] MCHC 31.4(L) 32.3 - 35.7 g/dL [facility] RDW CV 15.0(H) 11.1 - 14.9 % [facility] RDW SD 48.6(H) 35.7 - 48.1 fL [facility] NRBC abs 0.00 0.00 - 0.01 K/cumm [facility] Blood 06/06/2025 9:15 PM CDT 06/06/2025 10:33 PM CDT Dianna Root MD LAB BLOOD ORDERABLES Final Resu lt Performing Organization Address [facility] de Phone Number [facility] Department [place] [address] * (ABNORMAL) Protime-INR (06/06/2025 9:15 PM CDT) PT 17.4(H) 9.7 - 13.0 sec INR 1.60(H) 0.90 - 1.20 [facility] Comment: Interpretive data Oral anticoagulant therapeutic ranges: Venous thromboembolism prophylaxis or treatment: 2.0-3.0 CARDIOLOGY Standard range: 2.0-3.0 High-intensity range: 2.5-3.5 Refer to indication-specific guidelines for appropriate target ranges for prosthetic heart valve replacement. Current interpretive data was last revised on 2019. Blood 06/06/2025 9:15 PM CDT 06/06/2025 10:36 PM CDT Dianna Root MD LAB BLOOD ORDERABLES Final Resu lt Performing Organization Address City/[facility] Co de Phone Number [facility] Department [place] [address] * (ABNORMAL) Comprehensive metabolic panel (06/06/2025 9:15 PM CDT) Sodium 139 135 - 145 mmol/L Potassium, pl 4.7 3.3 - 4.9 mmol/L [facility] Chloride 96(L) 97 - 110 mmol/L [facility] CO2 35(H) 22 - 32 mmol/L [facility] Anion gap 8 2 - 15 mmol/L [facility] BUN 27(H) 6 - 25 mg/dL [facility] Creatinine 1.01 0.80 - 1.30 mg/dL [facility] Glucose 103 70 - 199 mg/dL [facility] Comment: Interpretive Data Fasting glucose >/= [...] 2022. Calcium 9.6 8.5 - 10.3 mg/dL [facility] Bilirubin, total 0.3 0.1 - 1.2 mg/dL [facility] Protein, pl 6.8 6.5 - 8.5 g/dL [facility] Albumin 3.2(L) 3.5 - 5.0 g/dL [facility] Alk phos 194(H) 40 - 130 Units/L [facility] ALT 23 7 - 55 Units/L [facility] AST 34 10 - 50 Units/L [facility] Blood 06/06/2025 9:15 PM CDT 06/06/2025 10:33 PM CDT us Dianna Root MD LAB BLOOD ORDERABLES Final Resu lt [facility] [place] [address] * FL Modified Barium Swallow W Video [...] IMG FLUOROSCOPY PROCEDURE S Final Result * GUM SPRAYER Evaluate and Treat (VFSS) (06/06/2025 3:30 PM CDT) Narrative Taisha Auguste, GUM SPRAYER - 06/06/2025 3:30 PM CDT Taisha Auguste SLP 06/06/2025 4:33 PM Speech-Language Pathology: Videofluoroscopic Study of Swallow (VFSS/MBS) HPI/PMH 80 y.o. 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 Plan GUM SPRAYER Frequency of Services during current admission: Discharge from this Service GUM SPRAYER Recommendation (Add'l Services): No further GUM SPRAYER indicated Next Visit Plan: No further ST warranted Additional Referrals: N/A Discharge Summary Statement If this is the last swallow therapy visit, this serves as the discharge summary. us Lukas Paredes MD GUM SPRAYER ORDERABLES Final Res ult * GUM SPRAYER Evaluation and Treatment (06/06/2025 3:30 PM CDT) Narrative Taisha Auguste SLP - 06/06/2025 3:30 PM CDT Taisha Auguste SLP 06/06/2025 4:33 PM Speech-Language Pathology: Videofluoroscopic Study of Swallow (VFSS/MBS) HPI/PMH 80 y.o. 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 Plan GUM SPRAYER Frequency of Services during current admission: Discharge from this Service GUM SPRAYER Recommendation (Add'l Services): No further GUM SPRAYER indicated Next Visit Plan: No further ST warranted Additional Referrals: N/A Discharge Summary Statement If this is the last swallow therapy visit, this serves as the discharge summary. us Lukas Paredes MD GUM SPRAYER ORDERABLES Final Res ult * GUM SPRAYER Evaluation and Treatment (06/06/2025 3:30 PM CDT) Narrative Taisha Auguste, JOE - 06/06/2025 3:30 PM CDT Taisha Auguste SLP 06/06/2025 4:33 PM Speech-Language Pathology: Videofluoroscopic Study of Swallow (VFSS/MBS) HPI/PMH 80 y.o. 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 Plan GUM SPRAYER Frequency of Services during current admission: Discharge from this Service GUM SPRAYER Recommendation (Add'l Services): No further GUM SPRAYER indicated Next Visit Plan: No further ST warranted Additional Referrals: N/A Discharge Summary Statement If this is the last swallow therapy visit, this serves as the discharge summary. us Keith Alexander MD GUM SPRAYER ORDERABLES Final Resu lt * TRANSTHORACIC ECHO (TTE) COMPLETE W DOPPLER/CF W CONTRAST (06/06/2025 12:04 PM CDT) EF Mod BP 55 % CONS SCIMAGE Anatomical Region Laterality Modality Ultrasound 06/06/2025 11:1 7 AM CDT Narrative 06/06/2025 1:37 PM CDT [facility] Card[facility] [place] [address] [place] [address] Transthoracic Echocardiographic Report Patient Name: ELMER LÓPEZ R : 1945 (80y 3m) Gender: M Study Date: 06/06/2025 11:17:38 AM Ht(Inch): 71 Wt(Lb): 169.97 BSA: 1.97 Hog Confinement System Manager: Estrellita Carrero RDCS Location: [id number] Order Provider: DIANNA ROOT Heart Rate: 80 [...] Procedure Note Nava Morales MD - 06/06/2025 [facility] [place] [address] Transthoracic Echocardiographic Report Patient Name: ELMER LÓPEZ R : 1945 (80y 3m) Gender: M Study Date: 06/06/2025 11:17:38 AM Ht(Inch): 71 Wt(Lb): 169.97 BSA: 1.97 Hog Confinement System Manager: Estrellita Carrero RDCS Location: [id number] Order Provider:DIANNA ROOT Heart Rate: 80 BMI: [...] MD LAB BLOOD ORDERABLES Final Resu lt [facility] One [facility] [place] [address] * (ABNORMAL) Differential, auto (06/05/2025 10:58 PM CDT) Neutrophil abs 4.68 1.50 - 6.50 K/cumm Imm gran abs 0.08 0.00 - 0.10 K/cumm [facility] Lymphocyte abs 1.24 0.80 - 3.30 K/cumm [facility] Monocyte abs 0.96(H) 0.20 - 0.80 K/cumm [facility] Eosinophil abs 0.50 0.00 - 0.50 K/cumm [facility] Basophil abs 0.03 0.00 - 0.10 K/cumm [facility] Neutrophil pct 62.4 % [facility] Comment: Interpretive Data Percent cell count reference ranges are not reported, since discordance with absolute values may lead to misinterpretation of CBC data. Current Interpretive Data was last revised on 2018. Imm gran pct 1.1 % [facility] Comment: Interpretive Data Percent cell count reference ranges are not reported, since discordance with absolute values may lead to misinterpretation of CBC data. Current Interpretive Data was last revised on 2018. Lymphocyte pct 16.6 % [facility] Comment: Interpretive Data Percent cell count reference ranges are not reported, since discordance with absolute values may lead to misinterpretation of CBC data. Current Interpretive Data was last revised on 2018. Monocyte pct 12.8 % [facility] Comment: Interpretive Data Percent cell count reference ranges are not reported, since discordance with absolute values may lead to misinterpretation of CBC data. Current Interpretive Data was last revised on 2018. Eosinophil pct 6.7 % [facility] Comment: Interpretive Data Percent cell count reference ranges are not reported, since discordance with absolute values may lead to misinterpretation of CBC data. Current Interpretive Data was last revised on 2018. Basophil pct 0.4 % [facility] Comment: Interpretive Data Percent cell count reference ranges are not reported, since discordance with absolute values may lead to misinterpretation of CBC data. Current Interpretive Data was last revised on 2018. Blood 06/05/2025 10:5 8 PM CDT 06/06/2025 12:50 AM CDT Dianna Root MD LAB BLOOD ORDERABLES Final Resu lt [facility] One [facility] [place] [address] * (ABNORMAL) CBC with auto differential (06/05/2025 10:58 PM CDT) WBC 7.49 3.80 - 9.90 K/cumm Hgb 8.4(L) 13.0 - 17.5 g/dL [facility] Hct 26.6(L) 38.9 - 50.3 % [facility] Plt 233 150 - 400 K/cumm [facility] MPV 10.9 9.1 - 12.3 fL [facility] RBC 2.93(L) 4.30 - 5.80 M/cumm [facility] MCV 90.8 81.3 - 96.4 fL [facility] MCH 28.7 27.1 - 33.3 pg [facility] MCHC 31.6(L) 32.3 - 35.7 g/dL [facility] RDW CV 15.3(H) 11.1 - 14.9 % [facility] RDW SD 51.3(H) 35.7 - 48.1 fL [facility] NRBC abs 0.00 0.00 - 0.01 K/cumm [facility] Blood 06/05/2025 10:5 8 PM CDT 06/06/2025 12:50 AM CDT Dianna Root MD LAB BLOOD ORDERABLES Final Resu lt [facility] One [facility] [place] [address] * (ABNORMAL) Protime-INR (06/05/2025 10:58 PM CDT) PT 18.5(H) 9.7 - 13.0 sec INR 1.69(H) 0.90 - 1.20 [facility] Comment: Interpretive data Oral anticoagulant therapeutic ranges: Venous thromboembolism prophylaxis or treatment: 2.0-3.0 CARDIOLOGY Standard range: 2.0-3.0 High-intensity range: 2.5-3.5 Refer to indication-specific guidelines for appropriate target ranges for prosthetic heart valve replacement. Current interpretive data was last revised on 2019. Blood 06/05/2025 10:5 8 PM CDT 06/06/2025 12:58 AM CDT Dianna Root MD LAB BLOOD ORDERABLES Final Resu lt [facility] One [facility] [place] [address] * (ABNORMAL) Comprehensive metabolic panel (06/05/2025 10:58 PM CDT) Pathologist [facility] Sodium 138 135 - 145 mmol/L Potassium, pl 4.4 3.3 - 4.9 mmol/L [facility] Chloride 98 97 - 110 mmol/L [facility] CO2 32 22 - 32 mmol/L [facility] Anion gap 8 2 - 15 mmol/L [facility] BUN 22 6 - 25 mg/dL [facility] Creatinine 1.02 0.80 - 1.30 mg/dL [facility] Glucose 107 70 - 199 mg/dL [facility] Comment: Interpretive Data Fasting glucose >/= [...] Calcium 9.0 8.5 - 10.3 mg/dL [facility] Bilirubin, total 0.2 0.1 - 1.2 mg/dL [facility] Protein, pl 6.2(L) 6.5 - 8.5 g/dL [facility] Albumin 2.9(L) 3.5 - 5.0 g/dL [facility] Alk phos 192(H) 40 - 130 Units/L [facility] ALT 20 7 - 55 Units/L [facility] AST 38 10 - 50 Units/L [facility] Blood 06/05/2025 10:5 8 PM CDT 06/06/2025 12:38 AM CDT Dianna Root MD LAB BLOOD ORDERABLES Final Resu lt [facility] One [facility] [place] [address] * Pneumonia PCR Sputum, induced (06/05/2025 4:53 AM CDT) C. pneumoniae DNA Not Detected Not Detected Legionella pneumophila DNA Not Detected Not Detected [facility] M. pneumoniae DNA Not Detected Not Detected [facility] Adenovirus DNA Not Detected Not Detected [facility] Coronavirus (229E, OC43, HKU1, NL63) RNA Not Detected Not Detected [facility] Metapneumovirus RNA Not Detected Not Detected [facility] Rhinovirus/Enterov irus RNA Not Detected Not Detected [facility] Influenza A RNA Not Detected Not Detected [facility] Influenza B RNA Not Detected Not Detected [facility] Parainfluenza virus (1-4) RNA Not Detected Not Detected [facility] RSV RNA Not Detected Not Detected [facility] Sputum, induced 06/05/2025 4 :53 AM CDT 06/05/2025 7:31 AM CDT Narrative [facility] - 06/05/2025 8:59 AM CDT The [employer] [...] of this assay have been determined by [facility]. Current interpretive data was last revised on 2025. us Keith Alexander MD LAB MICROBIOLOGY - GENERAL ORDERABLES Final Result [facility] One [facility] [place] [address] * (ABNORMAL) Pneumonia PCR with aerobic culture and Gram stain Sputum, induced (06/05/2025 4:53 AM CDT) Direct Specimen Exam Molecular Analysis: 10^6 copies/mL Pseudomonas aeruginosa Correlation of molecular analysis with final culture results is recommended. Direct Specimen Exam Stain: Moderate polymorphonuclear leukocytes seen. Few squamous epithelial cells seen. Few mixed bacterial anahi seen on Gram stain. [facility] Report Final Report: Growth indicates upper respiratory anahi. (.) [facility] Organism GROWTH INDICATES UPPER RESPIRATORY ANAHI. [facility] Sputum, induced 06/05/2025 4 :53 AM CDT 06/05/2025 6:28 AM CDT [facility] - 06/07/2025 1:16 PM CDT When rapid molecular testing results are reported, testing completed using the [employer] FilmArray Pneumonia Panel. This molecular assay detects: [...] performance characteristics have been confirmed by the [facility]. The performance of the FilmArray Pneumonia Panel has not been established for monitoring treatment of infection and bacterial nucleic acids may persist independent of organism viability. Keith Alexander MD LAB MICROBIOLOGY - GENERAL ORDERABLES Final Result [facility] One [facility] [place] [address] * Mycobacterium tuberculosis PCR Sputum, induced (06/05/2025 4:53 AM CDT) Report Final Report: Target not detected Organism TARGET NOT DETECTED [facility] Sputum, induced 06/05/2025 4 :53 AM CDT 06/05/2025 6:28 AM CDT Narrative [facility] - 06/05/2025 1:24 PM CDT 1. Nucleic acid amplification for detection of Mycobacterium tuberculosis complex is performed using the [employer] GeneXpert MTB/RIF assay. This assay has been approved by the [place] Food and Drug administration for detection of M. tuberculosis in sputum samples. The performance characteristics of this test have been verified by the [facility] Microbiology laboratory for sputum samples and lower [...] GENERAL ORDERABLES Final Result Performing Organization Address City/[facility] Co de Phone Number [facility] [place] [address] * Infection Prevention MRSA Only (Staphylococcus aureus) Culture Nasal (06/05/2025 4:50 AM CDT) Report Final Report: Negative Nasal 06/05/2025 4:50 AM CDT 06/05/2025 6:[address] [facility] 06/06/2025 8:37 AM CDT Testing performed by [facility] ([phone]). Keith Alexander MD LAB MICROBIOLOGY - GENERAL ORDERABLES Final Result Performing Organization Address [facility] Co de Phone Number [facility] [place] [address] * TERRA ab ql w/rflx to TERRA [...] BLOOD ORDERABLES Final Result Performing Organization Address City/[facility] Co de Phone Number [facility] [place] [address] * eGFR (06/04/2025 10:45 PM CDT) eGFR [...] ORDERABLES Final Resu lt Performing Organization Address [facility]/ZIP Co de Phone Number [facility] [place] [address] * (ABNORMAL) Differential, auto (06/04/2025 10:45 PM CDT) Neutrophil abs 6.47 1.50 - 6.50 K/cumm Imm gran abs 0.08 0.00 - 0.10 K/cumm [facility] Lymphocyte abs 0.89 0.80 - 3.30 K/cumm [facility] Monocyte abs 1.04(H) 0.20 - 0.80 K/cumm [facility] Eosinophil abs 0.38 0.00 - 0.50 K/cumm [facility] Basophil abs 0.03 0.00 - 0.10 K/cumm [facility] Neutrophil pct 72.8 % [facility] Comment: Interpretive Data Percent cell count reference ranges are not reported, since discordance with absolute values may lead to misinterpretation of CBC data. Current Interpretive Data was last revised on 2018. Imm gran pct 0.9 % [facility] Comment: Interpretive Data Percent cell count reference ranges are not reported, since discordance with absolute values may lead to misinterpretation of CBC data. Current Interpretive Data was last revised on 2018. Lymphocyte pct 10.0 % [facility] Comment: Interpretive Data Percent cell count reference ranges are not reported, since discordance with absolute values may lead to misinterpretation of CBC data. Current Interpretive Data was last revised on 2018. Monocyte pct 11.7 % [facility] Comment: Interpretive Data Percent cell count reference ranges are not reported, since discordance with absolute values may lead to misinterpretation of CBC data. Current Interpretive Data was last revised on 2018. Eosinophil pct 4.3 % [facility] Comment: Interpretive Data Percent cell count reference ranges are not reported, since discordance with absolute values may lead to misinterpretation of CBC data. Current Interpretive Data was last revised on 2018. Basophil pct 0.3 % [facility] Comment: Interpretive Data Percent cell count reference ranges are not reported, since discordance with absolute values may lead to misinterpretation of CBC data. Current Interpretive Data was last revised on 2018. Blood 06/04/2025 10:4 5 PM CDT 06/05/2025 12:39 AM CDT us Dianna Root MD LAB BLOOD ORDERABLES Final Resu lt Performing Organization Address City/[facility]/ZIP Co de Phone Number [facility] [place] [address] * (ABNORMAL) Iron profile w/ IBC (06/04/2025 10:45 PM CDT) [facility] Iron 24(L) 50 - 150 mcg/dL TIBC 171(L) 250 - 400 mcg/dL [facility] Transferrin saturation 14(L) 20 - 50 % [facility] Blood 06/04/2025 10:4 5 PM CDT 06/05/2025 12:38 AM CDT us Keith Alexander MD LAB BLOOD ORDERABLES Final Result Performing Organization Address [facility] Co de Phone Number [facility] [place] [address] * HIV 1/2 Antibody plus p24 Antigen Blood (06/04/2025 10:45 PM CDT) [facility] HIV 1/2 ab + p24 ag [...] GENERAL ORDERABLES Final Result Performing Organization Address [facility] [place] [place] [address] * Anti-Neutrophilic Cytoplasmic Antibody (ANCA) with Reflex to MPO and PR3 Abs (06/04/2025 10:45 PM CDT) [facility] ANCA Negative Blood 06/04/2025 10:4 5 PM CDT 06/05/2025 12:39 AM CDT us Keith Alexander MD LAB BLOOD ORDERABLES Final Result Performing Organization Address [facility] Co de Phone Number [facility] [place] [address] * (ABNORMAL) CBC with auto differential (06/04/2025 10:45 PM CDT) [facility] WBC 8.89 3.80 - 9.90 K/cumm Hgb 9.0(L) 13.0 - 17.5 g/dL [facility] Hct 28.4(L) 38.9 - 50.3 % [facility] Plt 226 150 - 400 K/cumm [facility] MPV 10.9 9.1 - 12.3 fL [facility] RBC 3.14(L) 4.30 - 5.80 M/cumm [facility] MCV 90.4 81.3 - 96.4 fL [facility] MCH 28.7 27.1 - 33.3 pg [facility] MCHC 31.7(L) 32.3 - 35.7 g/dL [facility] RDW CV 15.2(H) 11.1 - 14.9 % [facility] RDW SD 50.3(H) 35.7 - 48.1 fL [facility] NRBC abs 0.00 0.00 - 0.01 K/cumm [facility] Blood 06/04/2025 10:4 5 PM CDT 06/05/2025 12:39 AM CDT us Dianna Root MD LAB BLOOD ORDERABLES Final Resu lt Performing Organization Address [facility]/ZIP Co de Phone Number [facility] [place] [address] * RPR Blood (06/04/2025 10:45 PM CDT) Pathologist [facility] RPR Nonreactive Nonreactive Blood 06/04/2025 10:4 5 PM CDT 06/05/2025 12:39 AM CDT Keith Alexander MD LAB MICROBIOLOGY - GENERAL ORDERABLES Final Result Performing Organization Address City/[facility]/ZIP Co de Phone Number [facility] [place] [address] * (ABNORMAL) Protime-INR (06/04/2025 10:45 PM CDT) Pathologist [facility] PT 19.6(H) 9.7 - 13.0 sec INR 1.79(H) 0.90 - 1.20 [facility] Comment: Interpretive data Oral anticoagulant therapeutic [...] ORDERABLES Final Resu lt Performing Organization Address City/[facility]/ZIP Co de Phone Number [facility] [place] [address] * Rheumatoid factor (06/04/2025 10:45 PM CDT) Pathologist [facility] Rheumatoid factor, quant 12.0 0.1 - 15.0 IUnits/mL Blood 06/04/2025 10:4 5 PM CDT 06/05/2025 12:38 AM CDT Keith Alexander MD LAB BLOOD ORDERABLES Final Result Performing Organization Address City/[facility] Co de Phone Number [facility] [place] [address] * (ABNORMAL) Protein electrophoresis with reflex, serum with interpretation (06/04/2025 10:45 PM CDT) [facility] Protein, sr 6.0(L) 6.2 - 8.2 g/dL Albumin 2.5(L) 3.2 - 5.0 g/dL [facility] Alpha-1 globulin 0.7(H) 0.2 - 0.4 g/dL [facility] Alpha-2 globulin 1.2(H) 0.5 - 1.0 g/dL [facility] Beta-1 globulin 0.4 0.3 - 0.6 g/dL [facility] Beta-2 globulin 0.5 0.2 - 0.6 g/dL [facility] Gamma globulin 0.7 0.5 - 1.7 g/dL [facility] SPEP interp Please see comment [facility] Comment: No apparent monoclonal peak Reviewed and signed by Serenity Wiseman MD, PhD 06/06/2025 Blood 06/04/2025 10:4 5 PM CDT 06/05/2025 12:38 AM CDT us Keith Alexander MD LAB BLOOD [place] [address] * (ABNORMAL) Phosphorus (06/04/2025 10:45 PM CDT) [facility] Phosphorus, pl 2.2(L) 2.3 - 4.5 mg/dL Blood 06/04/2025 10:4 5 PM CDT 06/05/2025 12:38 AM CDT us Dianna Root MD LAB BLOOD ORDERABLES Final Resu lt [facility] [place] [address] * Magnesium (06/04/2025 10:45 PM CDT) Pathologist [facility] Magnesium 1.7 1.4 - 2.5 mg/dL Blood 06/04/2025 10:4 5 PM CDT 06/05/2025 12:38 AM CDT Dianna Root MD LAB BLOOD ORDERABLES Final Resu lt Performing Organization Address City/[facility]/ZIP Co de Phone Number [facility] [place] [address] * Folate (06/04/2025 10:45 PM CDT) Pathologist [facility] Folic acid 7.0 >=5.0 ng/mL Blood 06/04/2025 10:4 5 PM CDT 06/05/2025 12:38 AM CDT Keith Alexander MD LAB BLOOD ORDERABLES Final Result Performing Organization Address [facility] de Phone Number [facility] [address] * Ferritin (06/04/2025 10:45 PM CDT) Pathologist [facility] Ferritin 269 30 - 400 ng/mL Blood 06/04/2025 10:4 5 PM CDT 06/05/2025 12:38 AM CDT Keith Alexander MD LAB BLOOD ORDERABLES Final Result Performing Organization Address City/[facility] Co de Phone Number [facility] [address] * Vitamin B12 (06/04/2025 10:45 PM CDT) Pathologist [facility] Vitamin B12 491 230 - 1,250 pg/mL Blood 06/04/2025 10:4 5 PM CDT 06/05/2025 12:38 AM CDT us Keith Alexander MD LAB BLOOD ORDERABLES Final Result [facility] One [facility] [place] [address] * (ABNORMAL) Comprehensive metabolic panel (06/04/2025 10:45 PM CDT) Pathologist [facility] Sodium 138 135 - 145 mmol/L Potassium, pl 4.7 3.3 - 4.9 mmol/L [facility] Chloride 100 97 - 110 mmol/L [facility] CO2 31 22 - 32 mmol/L [facility] Anion gap 7 2 - 15 mmol/L [facility] BUN 21 6 - 25 mg/dL [facility] Creatinine 1.05 0.80 - 1.30 mg/dL [facility] Glucose 107 70 - 199 mg/dL [facility] Comment: Interpretive Data Fasting glucose >/= [...] Calcium 9.3 8.5 - 10.3 mg/dL [facility] Bilirubin, total 0.2 0.1 - 1.2 mg/dL [facility] Protein, pl 6.7 6.5 - 8.5 g/dL [facility] Albumin 3.1(L) 3.5 - 5.0 g/dL [facility] Alk phos 222(H) 40 - 130 Units/L [facility] ALT 23 7 - 55 Units/L [facility] AST 44 10 - 50 Units/L [facility] Blood 06/04/2025 10:4 5 PM CDT 06/05/2025 12:38 AM CDT Dianna Root MD LAB BLOOD ORDERABLES Final Resu lt Performing Organization Address [facility] Co de Phone Number [facility] [place] [address] * Histoplasma Antigen Urine (06/04/2025 6:49 PM CDT) Histo Ag Ur result None Detected None Detected Histo Ag Ur interp Negative Negative [facility] Comment: Result Interpretation: Reference interval: None Detected Results reported as ng/mL in 0.20 - 20.00 ng/mL range Results above 20.00 ng/mL are reported as 'Positive, Above the Limit of Quantification' Testing Performed by: [facility], [address] [place] [address] [place] [facility] This test was developed and its performance characteristics determined by [facility]. It has not been cleared or approved [...] GENERAL ORDERABLES Final Result Performing Organization Address [facility] de Phone Number [facility] [place] [address] * CT Chest High Resolution WO Contrast [...] aureus) Culture Nasal (06/04/2025 3:04 PM CDT) Pathologist [facility] Report Final Report: Negative Nasal 06/04/2025 3:04 PM CDT 06/04/2025 3:19 PM CDT Narrative [facility] - 06/05/2025 4:35 PM CDT Testing performed by [facility] ([phone]). Keith Alexander MD LAB MICROBIOLOGY - GENERAL ORDERABLES Final Result Performing Organization Address City/[facility] Co de Phone Number [facility] [place] [address] * Coccidioides antibody screen w/reflex Blood (06/04/2025 10:50 AM CDT) [facility] Coccidioides ab screen, ser Reactive Negative [facility] Comment: Confirmatory testing by complement fixation and immunodiffusion has been ordered. ADDITIONAL INFORMATION This test has been modified from the director airport operations's instructions. Its performance characteristics were determined by [facility] in a manner consistent with CLIA requirements. This test has not been cleared or approved by the U.S. Food and Drug Administration. Test Performed by: [facility] [place] [address] Nurse Leader: Angeli Harper Ph.D.; CLIA# [id number] Blood 06/04/2025 10:5 0 AM CDT 06/04/2025 12:31 PM CDT Keith Alexander MD LAB MICROBIOLOGY - GENERAL ORDERABLES Final Result Performing Organization Address City/[facility]/ZIP Co de Phone Number [facility] [place] [address] [facility] * Histoplasma Antibody Blood (06/04/2025 10:50 AM CDT) Histoplasma Ab, yeast CF Negative Negative [facility] Lab Histoplasma Ab, Immunodiffusion Negative Negative [facility] Comment: A negative complement fixation and immunodiffusion (CF/ID) result does not exclude the diagnosis of histoplasmosis. Repeat testing by CF/ID in 1-2 weeks if clinically indicated. Test Performed by: [place] [address] Nurse Leader: Angeli Harper Ph.D.; CLIA# [id number] Blood 06/04/2025 10:5 0 AM CDT 06/04/2025 1:57 PM CDT Keith Alexander MD LAB MICROBIOLOGY - GENERAL ORDERABLES Final Result Performing Organization Address [facility] de Phone Number [facility] [place] [employer] [place] [address] [facility] * Blastomyces antibody, EIA, serum Blood (06/04/2025 10:50 AM CDT) Blastomyces Antibody Negative Negative [facility] Comment: A single negative result does not exclude the diagnosis of blastomycosis. Repeat testing on a new sample in 7-14 days if clinically indicated. Test Performed by: [place] [address] Nurse Leader: Angeli Harper Ph.D.; CLIA# [id number] Blood 06/04/2025 10:5 0 AM CDT 06/04/2025 1:57 PM CDT Keith Alexander MD LAB MICROBIOLOGY - GENERAL ORDERABLES Final Result [facility] [place] [employer] [place] [address] [facility] * Coccidioides antibodies (06/04/2025 10:50 AM CDT) Coccidioides ab comp fix Negative Negative [facility] Coccidioides IgG ImmDiff Negative Negative [facility] Coccidioides IgM ImmDiff Negative Negative [facility] Comment: The EIA may be reactive prior to complement fixation and immunodiffusion (CompF/ImmDiff), or may be falsely-reactive. Repeat testing by CompF/ImmDiff in 2-3 weeks if clinically indicated. Test Performed by: [facility] [address] [place] [address] Nurse Leader: Angeli Harper Ph.D.; CLIA# [id number] Blood 06/04/2025 10:5 0 AM CDT 06/04/2025 12:31 PM CDT Keith Alexander MD LAB BLOOD ORDERABLES Final Result Performing Organization Address [facility] de Phone Number [facility] Department [place] [employer] [place] [address] [facility] * Cryptococcal Antigen, Serum Blood (06/04/2025 10:50 AM CDT) [facility] Cryptococcus ag, Serum Negative Negative Comment: [...] GENERAL ORDERABLES Final Result Performing Organization Address City/[facility] Co de Phone Number [facility] [place] [employer] [place] [address] * Aspergillus galactomannan antigen Blood (06/04/2025 10:50 AM CDT) Aspergillus galactomannan Ag <0.500 <0.5 Index [facility] Comment: ADDITIONAL INFORMATION This is a qualitative test and the resulted index value is not indicative of disease severity. Serial testing is recommended for patients at high risk for invasive aspergillosis. This assay was performed using the FDA-cleared [employer] Aspergillus Galactomannan EIA. Test Performed by: [facility] [address] [id number] Nurse Leader: Angeli Harper Ph.D.; CLIA# [id number] Blood 06/04/2025 10:5 0 AM CDT 06/04/2025 12:42 PM CDT Keith Alexander MD LAB MICROBIOLOGY - GENERAL ORDERABLES Final Result Performing Organization Address [facility] de Phone Number [facility] [place] [address] [facility] * (ABNORMAL) Blood gas, venous (06/04/2025 10:50 AM CDT) pH, Venous 7.37 7.32 - 7.43 PCO2, Venous 55(H) 40 - 50 mmHg [facility] PO2, Venous 36 mmHg [facility] Comment: Interpretive Data No Reference Range Established Current Interpretive Data was last revised on 2018. HCO3 Venous, Calculated 33(H) 20 - 30 mmol/L [facility] BE, venous 7 mmol/L [facility] Comment: Interpretive Data No Reference Range Established Current Interpretive Data was last revised on 2018. Blood 06/04/2025 10:5 0 AM CDT 06/04/2025 12:25 PM CDT Keith Alexander MD LAB BLOOD ORDERABLES Final Result Performing Organization Address City/[facility] Co de Phone Number [facility] [place] [address] * XR Chest 1 View (06/04/2025 6:30 [...] MD LAB BLOOD ORDERABLES Final Resu lt [facility] [place] [address] * (ABNORMAL) Differential, auto (06/04/2025 4:35 AM CDT) Neutrophil abs 6.28 1.50 - 6.50 K/cumm Imm gran abs 0.07 0.00 - 0.10 K/cumm [facility] Lymphocyte abs 0.88 0.80 - 3.30 K/cumm [facility] Monocyte abs 1.13(H) 0.20 - 0.80 K/cumm [facility] Eosinophil abs 0.47 0.00 - 0.50 K/cumm [facility] Basophil abs 0.02 0.00 - 0.10 K/cumm [facility] Neutrophil pct 71.0 % [facility] Comment: Interpretive Data Percent cell count reference ranges are not reported, since discordance with absolute values may lead to misinterpretation of CBC data. Current Interpretive Data was last revised on 2018. Imm gran pct 0.8 % [facility] Comment: Interpretive Data Percent cell count reference ranges are not reported, since discordance with absolute values may lead to misinterpretation of CBC data. Current Interpretive Data was last revised on 2018. Lymphocyte pct 9.9 % [facility] Comment: Interpretive Data Percent cell count reference ranges are not reported, since discordance with absolute values may lead to misinterpretation of CBC data. Current Interpretive Data was last revised on 2018. Monocyte pct 12.8 % [facility] Comment: Interpretive Data Percent cell count reference ranges are not reported, since discordance with absolute values may lead to misinterpretation of CBC data. Current Interpretive Data was last revised on 2018. Eosinophil pct 5.3 % [facility] Comment: Interpretive Data Percent cell count reference ranges are not reported, since discordance with absolute values may lead to misinterpretation of CBC data. Current Interpretive Data was last revised on 2018. Basophil pct 0.2 % [facility] Comment: Interpretive Data Percent cell count reference ranges are not reported, since discordance with absolute values may lead to misinterpretation of CBC data. Current Interpretive Data was last revised on 2018. Blood 06/04/2025 4:35 AM CDT 06/04/2025 5:02 AM CDT us Dianna Root MD LAB BLOOD ORDERABLES Final Resu lt [facility] [place] [address] * (ABNORMAL) Pro B-type natriuretic peptide (06/04/2025 [...] MD LAB BLOOD ORDERABLES Final Resu lt [facility] [place] [address] * (ABNORMAL) CBC with auto differential (06/04/2025 4:35 AM CDT) WBC 8.85 3.80 - 9.90 K/cumm Hgb 8.3(L) 13.0 - 17.5 g/dL [facility] Hct 26.7(L) 38.9 - 50.3 % [facility] Plt 219 150 - 400 K/cumm [facility] MPV 10.3 9.1 - 12.3 fL [facility] RBC 2.94(L) 4.30 - 5.80 M/cumm [facility] MCV 90.8 81.3 - 96.4 fL [facility] MCH 28.2 27.1 - 33.3 pg [facility] MCHC 31.1(L) 32.3 - 35.7 g/dL [facility] RDW CV 15.3(H) 11.1 - 14.9 % [facility] RDW SD 51.0(H) 35.7 - 48.1 fL [facility] NRBC abs 0.00 0.00 - 0.01 K/cumm [facility] Blood 06/04/2025 4:35 AM CDT 06/04/2025 5:02 AM CDT Dianna Root MD LAB BLOOD ORDERABLES Final Resu lt Performing Organization Address City/[facility] Co de Phone Number [facility] [place] [address] * (ABNORMAL) Protime-INR (06/04/2025 4:35 AM CDT) Pathologist [facility] PT 20.1(H) 9.7 - 13.0 sec INR 1.84(H) 0.90 - 1.20 [facility] Comment: Interpretive data Oral anticoagulant therapeutic ranges: Venous thromboembolism prophylaxis or treatment: 2.0-3.0 CARDIOLOGY Standard range: 2.0-3.0 High-intensity range: 2.5-3.5 Refer to indication-specific guidelines for appropriate target ranges for prosthetic heart valve replacement. Current interpretive data was last revised on 2019. Blood 06/04/2025 4:35 AM CDT 06/04/2025 5:06 AM CDT Dianna Root MD LAB BLOOD ORDERABLES Final Resu lt Performing Organization Address [facility] Co de Phone Number [facility] [place] [address] * Phosphorus (06/04/2025 4:35 AM CDT) Pathologist [facility] Phosphorus, pl 2.6 2.3 - 4.5 mg/dL Blood 06/04/2025 4:35 AM CDT 06/04/2025 5:01 AM CDT Dianna Root MD LAB BLOOD ORDERABLES Final Resu lt Performing Organization Address [facility] [place] [address] * Magnesium (06/04/2025 4:35 AM CDT) Magnesium 1.8 1.4 - 2.5 mg/dL Blood 06/04/2025 4:35 AM CDT 06/04/2025 5:01 AM CDT Dianna Root MD LAB BLOOD ORDERABLES Final Resu lt [facility] [place] [address] * (ABNORMAL) Comprehensive metabolic panel (06/04/2025 4:35 AM CDT) Pathologist [facility] Sodium 135 135 - 145 mmol/L Potassium, pl 4.4 3.3 - 4.9 mmol/L [facility] Chloride 99 97 - 110 mmol/L [facility] CO2 29 22 - 32 mmol/L [facility] Anion gap 7 2 - 15 mmol/L [facility] BUN 23 6 - 25 mg/dL [facility] Creatinine 1.19 0.80 - 1.30 mg/dL [facility] Glucose 109 70 - 199 mg/dL [facility] Comment: Interpretive Data Fasting glucose >/= [...] 2022. Calcium 9.3 8.5 - 10.3 mg/dL [facility] Bilirubin, total 0.3 0.1 - 1.2 mg/dL [facility] Protein, pl 6.6 6.5 - 8.5 g/dL [facility] Albumin 2.9(L) 3.5 - 5.0 g/dL [facility] Alk phos 228(H) 40 - 130 Units/L [facility] ALT 20 7 - 55 Units/L [facility] AST 42 10 - 50 Units/L [facility] Blood 06/04/2025 4:35 AM CDT 06/04/2025 5:01 AM CDT Dianna Root MD LAB BLOOD ORDERABLES Final Resu lt Performing Organization Address [facility] Co de Phone Number [facility] [place] [address] * Legionella antigen Urine (06/04/2025 3:22 AM CDT) Legionella Ag Negative Negative Comment: Interpretive Data This test detects only Legionella pneumophila serogroup 1 antigen. Testing performed by [facility] ([phone]). Current interpretive data was last revised on 2020. Urine 06/04/2025 3:22 AM CDT 06/04/2025 5:30 AM CDT us Dianna Root MD LAB MICROBIOLOGY - GENERAL ORDE RABLES Final Result Performing Organization Address [facility] Co de Phone Number [facility] [place] [address] * ECG 12 lead (06/04/2025 3:21 AM CDT) Ventricular Rate EKG/Min 74 BPM [facility] Atrial Rate 74 BPM [facility] TN-Interval (MSEC) 196 ms [facility] QRS-Interval (MSEC) 114 ms [facility] QT-Interval (MSEC) 406 ms [facility] QTc 450 ms [facility] P [place] 34 degrees [facility] R [place] -19 degrees [facility] T [place] 16 degrees [facility] Diagnosis Normal sinus rhythm Incomplete right bundle branch block Borderline ECG No previous ECGs available Confirmed by SERENITY ARCHULETA M.D ([id number]) on 06/05/2025 8:59:03 AM [facility] 06/04/2025 3:21 AM CDT 06/05/2025 8:59 AM CDT Dianna Root MD ECG ORDERABLES Final Result [facility] * Respiratory pathogen panel Nasopharyngeal (06/04/2025 2:58 AM CDT) Pathologist [facility] Influenza A RNA Not Detected Not Detected Influenza B RNA Not Detected Not Detected [facility] RSV RNA Not Detected Not Detected [facility] COVID-19 RNA Not Detected Not Detected [facility] Coronavirus 229E RNA Not Detected Not Detected [facility] Coronavirus HKU1 RNA Not Detected Not Detected [facility] Coronavirus NL63 RNA Not Detected Not Detected [facility] Coronavirus OC43 RNA Not Detected Not Detected [facility] Adenovirus DNA Not Detected Not Detected [facility] Metapneumovirus RNA Not Detected Not Detected [facility] Rhinovirus/Enterov irus RNA Not Detected Not Detected [facility] Parainfluenza 1 RNA Not Detected Not Detected [facility] Parainfluenza 2 RNA Not Detected Not Detected [facility] Parainfluenza 3 RNA Not Detected Not Detected [facility] Parainfluenza 4 RNA Not Detected Not Detected [facility] B. pertussis DNA Not Detected Not Detected [facility] B. parapertussis DNA Not Detected Not Detected [facility] C. pneumoniae DNA Not Detected Not Detected [facility] M. pneumoniae DNA Not Detected Not Detected [facility] Nasopharyngeal 06/04/2025 2: 58 AM CDT 06/04/2025 3:29 AM CDT Narrative [facility] - 06/04/2025 4:44 AM CDT Is the Patient experiencing symptoms consistent with COVID?->No Surveillance testing for transplant patient?->No Interpretive Data The [employer] Respiratory Panel (RP2.1) assay is a [...] assay has FDA clearance for testing of [facility] OFFICER swabs. The performance of additional specimen types has been assessed by the performing laboratory. The performance characteristics of this assay have been determined by [facility]. Current interpretive data was last revised on 22. Dianna Root MD LAB MICROBIOLOGY - GENERAL TONY LIN Final Result [facility] [place] [address] * MRSA Only (Staphylococcus aureus) Culture Nasal (06/04/2025 2:53 AM CDT) Report Final Report: Negative Nasal 06/04/2025 2:53 AM CDT 06/04/2025 3:29 AM CDT Narrative [facility] - 06/05/2025 6:58 AM CDT Testing performed by [facility] ([phone]). us Dianna Root MD LAB MICROBIOLOGY - GENERAL TONY LIN Final Result Performing Organization Address [facility] Co de Phone Number [facility] Department [place] [address] * Glucose, random (Outreach) (05/02/2025 10:25 AM [...] ORDERABLES F inal Result Performing Organization Address [facility] Co de Phone Number [facility] Department [place] [address] * (ABNORMAL) eGFR (05/02/2025 10:25 AM CDT) [...] NP LAB BLOOD ORDERABLES F inal Result [facility] [place] [address] * (ABNORMAL) Differential, auto (05/02/2025 10:25 AM CDT) Pathologist [facility] Neutrophil abs 6.97(H) 1.50 - 6.50 K/cumm Imm gran abs 0.13(H) 0.00 - 0.10 K/cumm [facility] Lymphocyte abs 1.24 0.80 - 3.30 K/cumm [facility] Monocyte abs 0.99(H) 0.20 - 0.80 K/cumm [facility] Eosinophil abs 0.52(H) 0.00 - 0.50 K/cumm [facility] Basophil abs 0.04 0.00 - 0.10 K/cumm [facility] Neutrophil pct 70.5 % [facility] Comment: Interpretive Data Percent cell count reference ranges are not reported, since discordance with absolute values may lead to misinterpretation of CBC data. Current Interpretive Data was last revised on 2018. Imm gran pct 1.3 % [facility] Comment: Interpretive Data Percent cell count reference ranges are not reported, since discordance with absolute values may lead to misinterpretation of CBC data. Current Interpretive Data was last revised on 2018. Lymphocyte pct 12.5 % [facility] Comment: Interpretive Data Percent cell count reference ranges are not reported, since discordance with absolute values may lead to misinterpretation of CBC data. Current Interpretive Data was last revised on 2018. Monocyte pct 10.0 % [facility] Comment: Interpretive Data Percent cell count reference ranges are not reported, since discordance with absolute values may lead to misinterpretation of CBC data. Current Interpretive Data was last revised on 2018. Eosinophil pct 5.3 % [facility] Comment: Interpretive Data Percent cell count reference ranges are not reported, since discordance with absolute values may lead to misinterpretation of CBC data. Current Interpretive Data was last revised on 2018. Basophil pct 0.4 % [facility] Comment: Interpretive Data Percent cell count reference ranges are not reported, since discordance with absolute values may lead to misinterpretation of CBC data. Current Interpretive Data was last revised on 2018. Blood 05/02/2025 10:2 5 AM CDT 05/02/2025 2:09 PM CDT Gladys Larson NP LAB BLOOD ORDERABLES F inal Result [facility] [place] [address] * (ABNORMAL) Comprehensive metabolic panel, without glucose (Outreach) (05/02/2025 10:25 AM CDT) Sodium 134(L) 135 - 145 mmol/L Potassium, pl 5.8(H) 3.3 - 4.9 mmol/L [facility] Chloride 100 97 - 110 mmol/L [facility] CO2 27 22 - 32 mmol/L [facility] Anion gap 7 2 - 15 mmol/L [facility] BUN 21 6 - 25 mg/dL [facility] Creatinine 1.90(H) 0.80 - 1.30 mg/dL [facility] Calcium 9.6 8.5 - 10.3 mg/dL [facility] Protein, pl 7.5 6.5 - 8.5 g/dL [facility] Albumin 3.8 3.5 - 5.0 g/dL [facility] Bilirubin, total 0.2 0.1 - 1.2 mg/dL [facility] Alk phos 227(H) 40 - 130 Units/L [facility] AST 25 10 - 50 Units/L [facility] ALT 19 7 - 55 Units/L [facility] Blood 05/02/2025 10:2 5 AM CDT 05/02/2025 2:09 PM CDT us Gladys Larson NP LAB BLOOD ORDERABLES F inal Result [facility] [place] [address] * (ABNORMAL) CBC with auto differential (05/02/2025 10:25 AM CDT) Pathologist [facility] WBC 9.89 3.80 - 9.90 K/cumm Hgb 10.0(L) 13.0 - 17.5 g/dL [facility] Hct 32.2(L) 38.9 - 50.3 % [facility] Plt 322 150 - 400 K/cumm [facility] MPV 11.1 9.1 - 12.3 fL [facility] RBC 3.41(L) 4.30 - 5.80 M/cumm [facility] MCV 94.4 81.3 - 96.4 fL [facility] MCH 29.3 27.1 - 33.3 pg [facility] MCHC 31.1(L) 32.3 - 35.7 g/dL [facility] RDW CV 14.3 11.1 - 14.9 % [facility] RDW SD 48.4(H) 35.7 - 48.1 fL [facility] NRBC abs 0.00 0.00 - 0.01 K/cumm [facility] Blood 05/02/2025 10:2 5 AM CDT 05/02/2025 2:09 PM CDT Galdys Larson [facility] OFFICER LAB BLOOD ORDERABLES F inal Result [facility] [place] [address] * CT Body Outside Consult (05/02/2025 10:24 [...] images may or may not represent the makah source data set and thus may contain changes that may lower the accuracy of this second-opinion interpretation. Electronically signed by: Adele Shipman M.D. Narrative 05/02/2025 10:38 AM CDT EXAMINATION: RADIOLOGY CONSULTATION ON OUTSIDE IMAGING STUDY STUDY INITIALLY PERFORMED: 04/26/2025 at [facility]. TYPE OF STUDY: Multiple CT images of [...] INITIALLY PERFORMED: 04/26/2025 at [facility]. TYPE OF STUDY: Multiple CT images of [...] images may or may not represent the makah source data set and thus may contain changes that may lower the accuracy of this second-opinion interpretation. Electronically signed by: Adele Shipman M.D. Lukas Aadms MD IM CT PROCEDURES Final Resu lt * CT Body Outside Reference (05/02/2025 10:17 AM CDT) Impressions [facility] - 05/02/2025 10:17 AM CDT These images are for Reference purposes only and have not been reviewed by [facility] Radiology. There will be no report generated by a [facility] Radiologist. Narrative [facility] - 05/02/2025 10:17 AM CDT EXAMINATION: Images For Reference Purposes Only Lukas Adams MD [facility] [place] PROCEDURES Final Resu lt [facility] from Last 3 Months Additional Health Concerns Infection Onset Date Last Indicated Tuberculosis (rule out) 06/04/2025 06/04/20 25 Insurance [facility] [employer] [facility] Address: [address] [address] [place] [address] [facility] Address: [address] [address] [place] [address] [facility] Address: [address] [address] [place] [address] Advance Directives For more information, please contact: [phone] * Full Code (Latest Code Status on File) Date Activated Date Inactivated Comments 06/04/2025 2:17 AM 06/07/2025 7:14 PM Care Teams Laminating Press Operator Relationship Specialty Start Date End Date Naveed Mcintosh MD PCP - General Family Medicine 10/07/19 Salas Gottlieb MD [address] [place] [address] Referring Physician Critical Care Med 06/02/25
--- OUTSIDE RECORDS SUMMARY | 2025-07-29 17:34 | XMS_ITS | Clinical Summary ---
Author Organization [employer] [id number] [facility] Address [address] [place] [address] Care Team Providers Care Tank Farm Operator Name Role Phone Naveed Mcintosh MD Primary Care Provider [phone]- [phone] Allergies No known active allergies Medications meloxicam [...] Take 1 Tablet by mouth daily. Active [id number] -Fish Oil (FISH OIL) 1,000 mg (120 [...] series) 2019 INFLUENZA VACCINE (#1) 2025 Insurance [facility] [id number] Care Teams Tank Farm Operator Relationship Specialty Start Date End Date Naveed Mcintosh MD PCP - General Family Practice 05/18/19
--- NOTE | 2025-07-29 18:05 | ED_ITS ---
HPI - SOB/Dyspnea General Chief Complaint: Shortness of Breath/Dyspnea <Zofia Kaiser PA-C - Last Filed: 07/29/25 20:43> Stated Complaint: SOB <ELAYNE Lopez Last Filed: 07/29/25 20:43> Time Seen by Provider: 07/29/25 17:11 <Zofia Kaiser PA-C - Last Filed: 07/29/25 20:43> Source: patient and family <ELAYNE Lopez Last Filed: 07/29/25 20:43> Mode of arrival: EMS <ELAYNE Lopez Last Filed: 07/29/25 20:43> Limitations: no limitations <ELAYNE Lopez Last Filed: 07/29/25 20:43> History of Present Illness HPI Narrative: This is an 80-year-old male that presents to the emergency department for shortness of breath. Worsening over the last couple of days. Patient currently on antibiotics for mycobacterium avium complex. Has had multiple recent admissions due to pneumonia. Does report a cough. Denies fevers or chest pain. <ELAYNE Lopez Last Filed: 07/29/25 20:43> Related Data Home Medications: Home Medications ?Medication ?Instructions ?Recorded ?Confirmed ?Last Taken ?Type esomeprazole magnesium 20 mg 20 mg PO DAILY 06/15/25 0 07/29/25 07/18/25 History capsule,delayed release ethambutol 400 mg tablet 1,200 mg PO DAILY 06/15/25 0 07/29/25 07/18/25 History tamsulosin 0.4 mg capsule 0.4 mg PO BID 06/15/2507/2907/18/25 History azithromycin 250 mg tablet 250 mg PO DAILY 07/29/25 Unknown History (Zithromax) metoprolol tartrate 50 mg tablet 50 mg PO HS 07/29/25 07/29/25 Unknown History (Lopressor) <ELAYNE Lopez Last Filed: 07/29/25 20:43> Allergies/Adverse Reactions: Allergies Allergy/AdvReac Type Severity Reaction Status Date / Time clonazepam AdvReac Severe Drowsy Verified 07/29/25 20:59 roflumilast (From [place]ires) AdvReac Severe Diarrhea Verified 07/29/25 20:59 <Zofia Kaiser PA-C - Last Filed: 07/29/25 20:43> Review of Systems 2 Review of Systems: All systems reviewed & are unremarkable except as noted in HPI and below <Zofia Kaiser PA-C - Last Filed: 07/29/25 20:43> COUNTS INCLUDE 234 BEDS AT THE [facility] Past Medical History Medical History: Medical History (Updated 07/29/25 @ 20:43 by Zofia Kaiser PA-C) Anxiety Physical deconditioning NSVT (nonsustained ventricular tachycardia) Dysfunction of left eustachian tube Leukocytosis Heart failure with mildly reduced ejection fraction Chronic pulmonary aspergillosis Major depressive disorder, recurrent, mild Left foot drop Chronic kidney disease, stage 3 Spinal stenosis, lumbar region without neurogenic claudication Ischemic cardiomyopathy Echocardiogram 09/2021: Mildly reduced left ventricular systolic function EF of 45-50%, grade 1 diastolic dysfunction, inferior wall inferior septal wall basal inferior wall and mid inferior lateral wall hypokinesis with mild left atrial and large SVT (supraventricular tachycardia) 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 History of tobacco use Polio (1951) Other chronic pain Aortic stenosis Mild - Echo 05/15/2022 NSTEMI (non-ST elevated myocardial infarction) (08/2019) Atherosclerotic heart disease of [place] coronary artery without angina pectoris Abdominal aortic aneurysm, without rupture Seen on CT scan on 02/09/2018 Restless legs syndrome <Zofia Kaiser PA-C - Last Filed: 07/29/25 20:43> Surgical History Surgical History: Surgical History History of tonsillectomy and adenoidectomy History of repair of rotator cuff bilateral History of colonoscopy with polypectomy History of bowel resection due to obstruction Presence of coronary angioplasty implant and graft History of coronary artery stent placement X2 History of mandibular surgery (1986) reconstructive surgery right mandible related to cancer <Zofia Kaiser PA-C - Last Filed: 07/29/25 20:43> Family History Family History: Family History Mother Diabetes mellitus Acute myocardial infarction Father Colon cancer COPD (chronic obstructive pulmonary disease) Sibling Colon cancer Acute myocardial infarction Lung cancer COPD (chronic obstructive pulmonary disease) Sibling COPD (chronic obstructive pulmonary disease) Sibling Congestive heart failure Sibling Dementia <Zofia Kaiser PA-C - Last Filed: 07/29/25 20:43> Social History Social History: Social History Social History: Surrogate medical decision maker: Yessi Morgan, daughter. Code status: Full code. But he states he would not want to be on a ventilator long-term have a tracheostomy or feeding tube. Smoking packs per day: 2 Smoking cigarettes per day: 40.0 Years smoked: 60 Smoking pack-years: 120.00 Smoking status: Former smoker Second hand tobacco smoke exposure: No Alcohol intake: never Substance use: never Substance use type: does not use Other substance usage details: quit alcohol in 2010 Last use: Last alcohol use 2010 Do You Feel Safe in your Home?: Yes Lack of Transportation: No Lack of Food: Never True Current Housing: I Have Housing Concerned About Future Housing: No Difficulty Paying Gas/Electric Bills: No Difficulty Paying for Meds: No Currently Unemployed: No Education: High School Diploma/GED Difficulty w/ Childcare or Family Care: No Living arrangements: with family Additional living arrangements comments: . Lives in [place] with son and [id number]. 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 HEAD: Normocephalic, atraumatic. EYES: EOMI. ENT: Nares clear, no rhinorrhea or epistaxis. Mucous membranes dry. Oropharynx without tonsillar hypertrophy exudate or other lesions. NECK: Supple. CHEST: No respiratory distress. Lung sounds coarse at the bases. No wheezes rales or rhonchi HEART: Regular rate and rhythm. No murmur heard. Normal peripheral pulses. EXTREMITIES: Normal range of motion. No edema. SKIN: Warm, dry, no rash. NEURO: No focal deficits. Alert and oriented x3. PSYCH: Normal mood and affect <Zofia Kaiser PA-C - Last Filed: 07/29/25 20:43> Course Course Emergency Course: patient and family updated on workup and agree with plan of care <Zofia Kaiser PA-C - Last Filed: 07/29/25 20:43> MICRO PHOTOGRAPHER/PA Physician Supervision This visit was performed by both a physician and an APC. For this patient encounter, I reviewed the MICRO PHOTOGRAPHER or PA documentation, treatment plan, and medical decision making and had [id number] time with this patient. I performed all aspects of the MDM as documented. <Magdy Morgan MD - Last Filed: 07/29/25 21:33> Consultations Consultation #1: Spoke with hospitalist about patient and workup who accepts admission < Zofia Kaiser PA-C - Last Filed: 07/29/25 20:43> Date: 07/29/25 <Zofia Kaiser PA-C - Last Filed: 07/29/25 20:43> Vital Signs Vital signs: Vital Signs Temperature 98.2 F 07/29/25 15:46 Pulse Rate 114 H 07/29/25 15:46 Respiratory Rate 20 07/29/25 15:46 Blood Pressure 106/48 L 07/29/25 15:46 Pulse Oximetry 99 07/29/25 15:46 Oxygen Delivery Room Air 07/29/25 15:46 Temperature 98.3 F 07/29/25 20:28 Pulse Rate 82 07/29/25 20:44 Respiratory Rate 17 07/29/25 20:44 Blood Pressure 144/54 H 07/29/25 20:28 Pulse Oximetry 100 07/29/25 20:44 Oxygen Delivery Nasal Cannula 07/29/25 20:44 Oxygen Flow Rate 5 07/29/25 20:44 <Zofia Kaiser PA-C - Last Filed: 07/29/25 20:43> Vital Signs Temperature 98.2 F 07/29/25 15:46 Pulse Rate 114 H 07/29/25 15:46 Respiratory Rate 20 07/29/25 15:46 Blood Pressure 106/48 L 07/29/25 15:46 Pulse Oximetry 99 07/29/25 15:46 Oxygen Delivery Room Air 07/29/25 15:46 Temperature 98.3 F 07/29/25 20:28 Pulse Rate 82 07/29/25 20:44 Respiratory Rate 17 07/29/25 20:44 Blood Pressure 144/54 H 07/29/25 20:28 Pulse Oximetry 100 07/29/25 20:44 Oxygen Delivery Nasal Cannula 07/29/25 20:44 Oxygen Flow Rate 5 07/29/25 20:44 <Magdy Morgan MD - Last Filed: 07/29/25 21:33> MDM - SOB/Dyspnea MDM Narrative Medical decision making narrative: Patient presents to the emergency department for shortness of breath, increasing oxygen requirement. Patient is afebrile. Tachycardic upon arrival, patient lightly hydrated in the ER. Heart rate normalized. CBC with leukocytosis to 19.9. Metabolic panel with hyponatremia sodium of 128. CTA chest PE obtained for further evaluation. No PE. Emphysema. Patchy pneumonia in the right middle and bilateral upper and lower lobes. Cardiomegaly. patient and family updated on workup and agree with plan of care. Spoke with hospitalist about patient and workup who accepts admission <Zofia Kaiser PA-C - Last Filed: 07/29/25 20:43> Patient presents to the emergency department for shortness of breath, increasing oxygen requirement. Patient is afebrile. Tachycardic upon arrival, patient lightly hydrated in the ER. Heart rate normalized. CBC with leukocytosis to 19.9. Metabolic panel with hyponatremia sodium of 128. CTA chest PE obtained for further evaluation. No PE. Emphysema. Patchy pneumonia in the right middle and bilateral upper and lower lobes. Cardiomegaly. patient and family updated on workup and agree with plan of care. Spoke with hospitalist about patient and workup who accepts admission. <Magdy Morgan MD - Last Filed: 07/29/25 21:33> Differential Diagnosis Differential diagnosis: Likely acute exacerbation of chronic obstructive airways disease, congestive heart failure, community acquired pneumonia and pulmonary embolism < Zofia Kaiser PA-C - Last Filed: 07/29/25 20:43> Lab Data Attestation: I reviewed the patient's lab results. <Zofia Kaiser PA-C - Last Filed: 07/29/25 20:43> Result diagrams: 07/29/25 16:13 07/29/25 16:13 <Zofia Kaiser PA-C - Last Filed: 07/29/25 20:43> Labs: Lab Results 07/29/25 Range/Units 16:13 WBC 19.9 H (4.5-10.0) K/mm3 RBC 3.59 L (4.6-6.20) M/mm3 Hgb 10.0 L (14.0-18.0) g/dL Hct 31.7 L (42.0-52.0) % MCV 88.3 (80-100) fl MCH 27.9 (26-34) pg MCHC 31.5 L (32-36) g/dl RDW 16.0 H (11.5-14.5) % Plt Count 242 D (150-375) k/mm3 MPV 11.1 H (7.4-10.4) fl Immature Gran % (Auto) 0.7 H (0-0.5) % Neut % (Auto) 91.0 H (45.5-73.1) % Lymph % (Auto) 2.1 L (18.3-44.2) % [place] % (Auto) 6.0 (2.6-8.5) % Eos % (Auto) 0.0 (0-4.4) % Baso % (Auto) 0.2 (0.2-1.2) % Lymph # (Auto) 0.41 L (0.9-3.2) K/mm3 [place] # (Auto) 1.2 H (0.1-0.6) K/mm3 Eos # (Auto) 0.0 (0-0.3) K/mm3 Baso # (Auto) 0.0 (0.0-0.1) K/mm3 Abs Immat Gran (auto) 0.14 H (0.00-0.031) K/mm3 Absolute Neuts (auto) 18.1 H (1.3-6.7) K/mm3 Absolute Nucleated RBC 0.000 (0.0-0.012) K/mm3 Nucleated RBC % 0.0 (0.0-0.2) % Sodium 128 L (137-145) mmol/L Potassium 4.0 (3.4-5.0) mmol/L Chloride 96 L (98-107) mmol/L Carbon Dioxide 26 (22-30) mmol/L Anion Gap 6 (4-12) mmol/L BUN 15 D (9-20) mg/dL Creatinine 0.84 (0.7-1.3) mg/dL Estim Creat Clear Calc Not Reportable Estimated GFR > 60 (59 - ) Glucose 106 (65-110) mg/dL Calcium 8.7 (8.4-10.2) mg/dL Total Bilirubin 1.3 (0.2-1.3) mg/dL AST 56 (17-59) U/L ALT 25 (6-50) U/L Alkaline Phosphatase 97 (38-126) U/L NT-Pro-B Natriuret Pep 2480 H (19.9-100) pg/mL Total Protein 6.9 (6.3-8.2) g/dL Albumin 3.4 L (3.5-5.1) g/dL <Zofia Kaiser PA-C - Last Filed: 07/29/25 20:43> Lab Results 07/29/25 Range/Units 16:13 WBC 19.9 H (4.5-10.0) K/mm3 RBC 3.59 L (4.6-6.20) M/mm3 Hgb 10.0 L (14.0-18.0) g/dL Hct 31.7 L (42.0-52.0) % MCV 88.3 (80-100) fl MCH 27.9 (26-34) pg MCHC 31.5 L (32-36) g/dl RDW 16.0 H (11.5-14.5) % Plt Count 242 D (150-375) k/mm3 MPV 11.1 H (7.4-10.4) fl Immature Gran % (Auto) 0.7 H (0-0.5) % Neut % (Auto) 91.0 H (45.5-73.1) % Lymph % (Auto) 2.1 L (18.3-44.2) % [place] % (Auto) 6.0 (2.6-8.5) % Eos % (Auto) 0.0 (0-4.4) % Baso % (Auto) 0.2 (0.2-1.2) % Lymph # (Auto) 0.41 L (0.9-3.2) K/mm3 [place] # (Auto) 1.2 H (0.1-0.6) K/mm3 Eos # (Auto) 0.0 (0-0.3) K/mm3 Baso # (Auto) 0.0 (0.0-0.1) K/mm3 Abs Immat Gran (auto) 0.14 H (0.00-0.031) K/mm3 Absolute Neuts (auto) 18.1 H (1.3-6.7) K/mm3 Absolute Nucleated RBC 0.000 (0.0-0.012) K/mm3 Nucleated RBC % 0.0 (0.0-0.2) % Sodium 128 L (137-145) mmol/L Potassium 4.0 (3.4-5.0) mmol/L Chloride 96 L (98-107) mmol/L Carbon Dioxide 26 (22-30) mmol/L Anion Gap 6 (4-12) mmol/L BUN 15 D (9-20) mg/dL Creatinine 0.84 (0.7-1.3) mg/dL Estim Creat Clear Calc Not Reportable Estimated GFR > 60 (59 - ) Glucose 106 (65-110) mg/dL Calcium 8.7 (8.4-10.2) mg/dL Total Bilirubin 1.3 (0.2-1.3) mg/dL AST 56 (17-59) U/L ALT 25 (6-50) U/L Alkaline Phosphatase 97 (38-126) U/L NT-Pro-B Natriuret Pep 2480 H (19.9-100) pg/mL Total Protein 6.9 (6.3-8.2) g/dL Albumin 3.4 L (3.5-5.1) g/dL <Magdy Morgan MD - Last Filed: 07/29/25 21:33> Imaging Data Radiologist's impression: ITS Impressions Chest X-Ray 07/29/25 17:16 IMPRESSION: 1. Emphysema with persistent coarse reticular pattern in the right mid to lower and left lower lung zones which in acute setting could represent mild pulmonary edema, pneumonia or atelectasis or more chronic interstitial lung disease. 2. Chronic small right pleural effusion. Chest CTA 07/29/25 18:25 IMPRESSION: 1. No pulmonary embolism. Sensitivity decreased in some of the smaller subsegmental pulmonary arteries particularly at the lung bases due to some respiratory motion. 2. Emphysema with interval improvement in patchy pneumonia in the right middle and bilateral upper and lower lobes. 3. Chronic likely small right pleural effusion. 4. Pleural thickening the bilateral lung bases with regions of peripheral round atelectasis and pleural parenchymal scarring at the bilateral lower lobes. 5. Cardiomegaly. 6. Small sliding-type hiatal hernia. 7. Hepatosplenomegaly. 8. Ectatic infrarenal abdominal aorta measuring up to 3.7 cm. <Zofia Kaiser PA-C - Last Filed: 07/29/25 20:43> ECG Data EKG #1: ECG completion date: 07/29/25 <ELAYNE Lopez Last Filed: 07/29/25 20:43> EKG Interpretation: normal rate, sinus rhythm, non-specific ST changes (T wave inversions), normal QT and no acute changes (compared to EKG 07/18/25) <ELAYNE Lopez Last Filed: 07/29/25 20:43> Critical Care Time Critical Care Time Critical Care Time: No <ELAYNE Lopez Last Filed: 07/29/25 20:43> Discharge Plan Discharge Clinical Impression: Hyponatremia, Acute on chronic hypoxic respiratory failure Pneumonia Qualifiers: Pneumonia type: due to unspecified organism Laterality: bilateral Lung location: unspecified part of lung Qualified Code(s): J18.9 - Pneumonia, unspecified organism <ELAYNE Lopez Last Filed: 07/29/25 20:43> Patient Disposition: Still a Patient <ELAYNE Lopez Last Filed: 07/29/25 20:43> Condition: Stable <ELAYNE Lopez Last Filed: 07/29/25 20:43>
[2025-07-29 18:08] LABS: NT Pro B Type Natriuretic Pept 2480 pg/mL (19.9-100)
--- NOTE | 2025-07-29 19:16 | PC.NURSE ---
Report received from MARJAN Guerra. Assumed care of patient at this time.
[2025-07-29] MEDS: SODIUM CHLORIDE 0.9% IV 500 ML 999 ML IV CONT (19:26)
[2025-07-29 19:37] VITALS: BP 127/60; PULSE 79; RESP 20; O2SAT 100
--- NOTE | 2025-07-29 19:39 | P.HP_ITS ---
H&P: HPI History of Present Illness Date/Time: 07/29/25 19:39 Chief Complaint: Shortness of breath Narrative: 80-year-old male past medical history of CHF with reduced ejection fraction, CKD stage 3, COPD, NSTEMI, polio as a child, chronic respiratory failure due to SNEHA pneumonia presents the hospital with shortness of breath hypoxia. Patient has had monthly hospitalizations due to SNEHA and has been seen by our pulmonology and Infectious Disease doctors. Lab work in the ED shows leukocytosis at 19.9, hemoglobin of 10, sodium of 128, chloride 96, BNP of 2480, chest CT a shows no pulmonary embolism, patchy pneumonia in the right middle and bilateral upper and lower lungs, small right chronic pleural effusion, parenchymal scarring, cardiomegaly, hepatosplenomegaly. Review of Systems Review of Systems: 12 systems were reviewed and are negativ e except for as per HPI. [facility] Past Medical History Medical History (Updated 07/29/25 @ 20:43 by Zofia Kaiser PA-C) Anxiety Physical deconditioning NSVT (nonsustained ventricular tachycardia) Dysfunction of left eustachian tube Leukocytosis Heart failure with mildly reduced ejection fraction Chronic pulmonary aspergillosis Major depressive disorder, recurrent, mild Left foot drop Chronic kidney disease, stage 3 Spinal stenosis, lumbar region without neurogenic claudication Ischemic cardiomyopathy Echocardiogram 09/2021: Mildly reduced left ventricular systolic function EF of 45-50%, grade 1 diastolic dysfunction, inferior wall inferior septal wall basal inferior wall and mid inferior lateral wall hypokinesis with mild left atrial and large SVT (supraventricular tachycardia) 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 History of tobacco use Polio (1951) Other chronic pain Aortic stenosis Mild - Echo 05/15/2022 NSTEMI (non-ST elevated myocardial infarction) (08/2019) Atherosclerotic heart disease of [place] coronary artery without angina pectoris Abdominal aortic aneurysm, without rupture Seen on CT scan on 02/09/2018 Restless legs syndrome Surgical History Surgical History History of tonsillectomy and adenoidectomy History of repair of rotator cuff bilateral History of colonoscopy with polypectomy History of bowel resection due to obstruction Presence of coronary angioplasty implant and graft History of coronary artery stent placement X2 History of mandibular surgery (1986) reconstructive surgery right mandible related to cancer Family History Family History Mother Diabetes mellitus Acute myocardial infarction Father Colon cancer COPD (chronic obstructive pulmonary disease) Sibling Colon cancer Acute myocardial infarction Lung cancer COPD (chronic obstructive pulmonary disease) Sibling COPD (chronic obstructive pulmonary disease) Sibling Congestive heart failure Sibling Dementia Social History Social History Social History: Surrogate medical decision maker: Yessi Morgan, daughter. Code status: Full code. But he states he would not want to be on a ventilator long-term have a tracheostomy or feeding tube. Smoking packs per day: 2 Smoking cigarettes per day: 40.0 Years smoked: 60 Smoking pack-years: 120.00 Smoking status: Former smoker Second hand tobacco smoke exposure: No Alcohol intake: never Substance use: never Substance use type: does not use Other substance usage details: quit alcohol in 2010 Last use: Last alcohol use 2010 Do You Feel Safe in your Home?: Yes Lack of Transportation: No Lack of Food: Never True Current Housing: I Have Housing Concerned About Future Housing: No Difficulty Paying Gas/Electric Bills: No Difficulty Paying for Meds: No Currently Unemployed: No Education: High School Diploma/GED Difficulty w/ Childcare or Family Care: No Living arrangements: with family Additional living arrangements comments: . Lives in [place] with son and [id number]. 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 Spiritual care concerns: No Agree to blood products: Yes Meds Home Medications and Allergies Home Medications ?Medication ?Instructions ?Recorded ?Confirmed ?Type aspirin 81 mg tablet,delayed 81 mg PO DAILY #90 tabs 0 06/15/23 07/29/25 Rx release fenofibrate 160 mg tablet 160 mg PO DAILY #90 tabs 07/29/25 Rx nebulizer accessories #1 ea 04/12/24 07/18/25 Rx nebulizer and compressor #1 ea 04/12/24 07/18/25 Rx albuterol sulfate 90 mcg/actuation 2 puff inhalation Q 4H PRN 10/03/24 07/29/25 Rx aerosol inhaler Shortness Of Breath Or [place] ing #8.5 grams nitroglycerin 0.4 mg sublingual 0.4 mg sublingual Q5M PRN chest 12/08/24 07/18/25 Rx tablet pain #25 tabs metoprolol succinate 50 mg 50 mg PO HS #90 tabs 07/18/25 Rx tablet,extended release 24 hr sulindac 200 mg tablet 200 mg PO BID #180 tabs 03/2307/29/25 Rx atorvastatin 80 mg tablet 80 mg PO DAILY #90 tabs 03/2407/18/25 Rx sertraline 50 mg tablet 50 mg PO DAILY #90 tabs 03/2407/29/25 Rx glycopyrrolate 9 mcg-formoterol 2 puff inhalation BID #10.7 grams 04/28/25 07/18/25 Rx 4.8 mcg HFA aerosol inhaler (Bevespi Aerosphere) hydroxyzine HCl 25 mg tablet 25 mg PO QID PRN anxiety #50 tabs 05/19/25 07/29/25 Rx trazodone 100 mg tablet 100 mg PO HS Insomnia #90 ta bs 05/24/25 07/29/25 Rx esomeprazole magnesium 20 mg 20 mg PO DAILY 06/15/25 0 07/29/25 History capsule,delayed release ethambutol 400 mg tablet 1,200 mg PO DAILY 06/15/25 0 07/29/25 History tamsulosin 0.4 mg capsule 0.4 mg PO BID 06/15/2507/29 History rifabutin 150 mg capsule 300 mg (2 x 150 mg) PO DAILY #60 06/30/25 07/29/25 Rx caps baclofen 10 mg tablet 5 mg (1/2 x 10 mg) PO TID TX N 07/01/25 07/18/25 Rx muscle spasm #30 tabs acetylcysteine 200 mg/mL (20 %) 200 mg inhalation Q6HR T #180 mL 07/02/25 07/29/25 Rx solution baclofen 10 mg tablet 10 mg PO HS #30 tabs 5 07/29/25 Rx benzonatate 100 mg capsule 200 mg (2 x 100 mg) PO TID PRN 07/02/25 07/29/25 Rx Cough #30 caps guaifenesin 600 mg tablet, 1,200 mg (2 x 600 mg) PO Q1 2HR #60 07/02/25 07/29/25 Rx extended release 12 hr (Mucus tabs Relief ER) ipratropium 0.5 mg-albuterol 3 mg 3 ml inhalation Q6HR T #180 mL 07/02/25 07/29/25 Rx (2.5 mg base)/3 mL nebulization soln morphine 30 mg tablet,extended 30 mg PO Q12H PRN pain 3 days #6 07/02/25 07/18/25 Rx release tabs olopatadine 0.2 % eye drops (Eye 1 drp EACH EYE DAILY PRN itching 07/02/25 07/18/25 Rx Allergy Itch Relief) #5 mL bupropion HCl 150 mg tablet,12 hr 150 mg PO BID #180 t abs 07/03/25 07/29/25 Rx sustained-release lorazepam 0.5 mg tablet 0.5 mg PO BID PRN anxiety #6 0 tabs 07/23/25 Rx lorazepam 0.5 mg tablet (Ativan) 0.5 mg PO DAILY PRN a nxiety #14 07/23/25 07/29/25 Rx tabs azithromycin 250 mg tablet 250 mg PO DAILY 07/29/25 History (Zithromax) metoprolol tartrate 50 mg tablet 50 mg PO HS 07/29/25 07/29/25 History (Lopressor) Allergies Allergy/AdvReac Type Severity Reaction Status Date / Time clonazepam AdvReac Severe Drowsy Verified 07/29/25 20:59 roflumilast (From Daliresp) AdvReac Severe Diarrhea Verified 07/29/25 20:59 Vital Signs Vital Signs - 24 hr 07/29/25 15:46 07/29/25 19:37 Temperature 98.2 F Pulse Rate 114 H 79 Respiratory Rate 20 20 Blood Pressure 106/48 L 127/60 Pulse Oximetry 99 100 Oxygen Delivery Room Air Exam Narrative: General: Chronically-ill, malnourished HEENT: normocephalic, atraumatic. Mucous membranes moist. EOMI, PERRLA, bilateral sclera anicteric, no conjunctival injection. Neck supple without JVD, lymphadenopathy, or bruit. Respiratory: Coarse with rales Cardiovascular: Regular rate and rhythm, normal S1-S2 upon ascultation. No murmurs, rubs, or clicks. PMI is nondisplaced, capillary refill less than 3 second. Abdomen: Soft, round, no pulsatile masses, nondistended and nontender. No rebound, no guarding. No CVA tenderness, no hepatosplenomegaly. Bowel sounds present to all four quadrants. No high pitch or tinkling sounds, resonant to percussion. Extremities: No cyanosis, clubbing, or edema present. Pulses are palpable 2/2. Active ROM to all four extremities. Neuro: Alert and orientated x 4. PERRLA. Cranial nerves 2-12 intact without focal deficit. Skin: Warm, dry, and intact, without rash, erythema, or lesion. Psych: pleasant, cooperative, normal speech, normal affect, no hallucinations, no dysarthia H&P: Results Labs Labs: Short CBC 07/29/25 Range/Units 16:13 WBC 19.9 H (4.5-10.0) K/mm3 Hgb 10.0 L (14.0-18.0) g/dL Hct 31.7 L (42.0-52.0) % Plt Count 242 D (150-375) k/mm3 BMP 07/29/25 16:13 Sodium 128 L Potassium 4.0 Chloride 96 L Carbon Dioxide 26 BUN 15 D Creatinine 0.84 Glucose 106 Calcium 8.7 Liver Function 07/29/25 Range/Units 16:13 Total Bilirubin 1.3 (0.2-1.3) mg/dL AST 56 (17-59) U/L ALT 25 (6-50) U/L Alkaline Phosphatase 97 (38-126) U/L Albumin 3.4 L (3.5-5.1) g/dL Assessment and Plan Assessment and plan (1) SNEHA (mycobacterium avium-intracellulare): Code(s): A31.0 - Pulmonary mycobacterial infection Status: Acute Assessment and Plan: Pulmonology and Infectious Disease consulted Continue azithromycin 250 mg due to hearing issues Continue Ethambutol 1200mg daily, Rifabutin 150mg daily, has follow-up with [facility] 08/08 (2) Leukocytosis: Code(s): D72.829 - Elevated white blood cell count, unspecified Status: Acute Assessment and Plan: Secondary to above Daily CBC (3) CHF (congestive heart failure), NYHA class I: Qualifiers: Congestive heart failure chronicity: chronic Congestive heart failure type: diastolic Qualified Code(s): I50.32 - Chronic diastolic (congestive) heart failure Code(s): I50.9 - Heart failure, unspecified Status: Chronic Assessment and Plan: Hard to tell chest x-ray if there is pulmonary edema on assessment patient is extremely coarse with rales IV Lasix Patient does not appear to be on Lasix at home, doses needed (4) Anxiety: Code(s): F41.9 - Anxiety disorder, unspecified Status: Acute Assessment and Plan: Continue Wellbutrin and Zoloft (5) HTN (hypertension): Qualifiers: Hypertension type: primary hypertension Qualified Code(s): I10 - Essential (primary) hypertension Code(s): I10 - Essential (primary) hypertension Status: Chronic Assessment and Plan: Continue metoprolol (6) Chronic anemia: Code(s): D64.9 - Anemia, unspecified Status: Acute Assessment and Plan: At baseline No need for transfusion (7) Pleural effusion on right: Code(s): J90 - Pleural effusion, not elsewhere classified Status: Acute Assessment and Plan: Pulmonary consulted IV Lasix x1 Quality VTE Prophylaxis VTE prophylaxis: mechanical ordered and pharmacologic ordered Hospitalist MIPS Advance Care Plan I have confirmed that the patient's Advanced Care Plan is present, code status is documented, or surrogate decision maker is listed in patient medical record.: Yes Medication Reconciliation I have utilized all available resources to obtain, update and review the patients current medications (includes all prescriptions, OTC, herbals, cannabis, and nutritional supplements).: Yes
[2025-07-29] MEDS: MORPHINE SULFATE (*CRX) 30 MG TABCR PO (19:41)
[2025-07-29 19:42] VITALS: O2SAT 100
[2025-07-29 20:10] VITALS: BP 119/82; PULSE 82; RESP 17; O2SAT 100; O2SAT 95
[2025-07-29 20:28] VITALS: BP 144/54; PULSE 86; RESP 20; TEMP 36.8; O2SAT 100; BMI 22.4
--- NOTE | 2025-07-29 20:28 | ADMGEN ---
This patient, Russell Morse, was admitted to Medical Room 246-01. Patient/family oriented to hospital policies and general routines including ID bracelet, bed and alarms, visiting hours, pain management, procedures, bathroom and other care routines, personal items, smoking policy, room service/diet, and visiting hours. Information on how to activate the Rapid Response Team has been discussed. Patient/Family are encouraged to report perceived risks to care and to ask questions if they do not understand what they are told or what they should do.
[2025-07-29 20:44] VITALS: PULSE 82; RESP 17; O2SAT 100
[2025-07-29] MEDS: FUROSEMIDE INJ 40 MG/4 ML VIAL IV PUSH (21:41)
[2025-07-30] VITALS (12 sets, daily range): BP systolic 90–144; BP diastolic 40–72; PULSE 66–118; RESP 18–20; TEMP 36.1–37.2; O2SAT 95–100
[2025-07-30 05:00] LABS: Add Urine Microscopic? NO; Appearance Urine Clear (Clear); Glucose Urine UA Negative (Negative); Leukocyte Esterase Ur Negative LEU/UL (Negative); Nitrate Urine Negative (Negative); Specific Grav Ur 1.022 (1.001-1.035)
[2025-07-30 05:01] LABS: Hematocrit 32.3 % (42.0-52.0); Hemoglobin 9.9 g/dL (14.0-18.0); Immature Granulocyte Percent A 0.8 % (0-0.5); Lymphocytes Absolute Auto 1.24 K/mm3 (0.9-3.2); Mean Corpuscular HGB Conc 30.7 g/dl (32-36); Mean Corpuscular Hemoglobin 27.8 pg (26-34); Mean Corpuscular Volume 90.7 fl (80-100); Nucleated Red Blood Cells Absolute Auto 0.000 K/mm3 (0.0-0.012); Nucleated Red Blood Cells Perc 0.0 % (0.0-0.2); Platelet Count Result 224 k/mm3 (150-375); Red Blood Count 3.56 M/mm3 (4.6-6.20); White Blood Count 17.5 K/mm3 (4.5-10.0)
[2025-07-30 05:13] LABS: Anion Gap 8 mmol/L (4-12); Blood Urea Nitrogen 15 mg/dL (9-20); Calcium 8.7 mg/dL (8.4-10.2); Carbon Dioxide 28 mmol/L (22-30); Chloride 96 mmol/L (98-107); Estimated CRCL calculation 55 ml/min; Estimated Glomerular Filt Rate > 60; Glucose 83 mg/dL (65-110); Potassium 3.8 mmol/L (3.4-5.0); Sodium 132 mmol/L (137-145)
[2025-07-30] MEDS: IPRATROPIUM 0.5 MG/ALBUTEROL SULFATE 2.5 MG AMPUL.NEB 3 ML INHALATION (06:12)
[2025-07-30] MEDS: FUROSEMIDE INJ 40 MG/4 ML VIAL 20 MG IV PUSH (06:51)
[2025-07-30] MEDS: MORPHINE SULFATE (*CRX) 30 MG TABCR PO (09:16)
[2025-07-30] MEDS: ASPIRIN 81 MG ENTERIC TABLET PO (09:17)
[2025-07-30] MEDS: FENOFIBRATE NANOCRYSTALLIZED 145 MG TABLET PO (09:18)
[2025-07-30] MEDS: SERTRALINE HCL 50 MG TABLET PO (09:18)
[2025-07-30] MEDS: TAMSULOSIN HCL 0.4 MG CAPSULE PO ×2 (09:18→16:18)
[2025-07-30] MEDS: guaiFENesin 12 HR 600 MG TABCR 1200 MG PO ×2 (09:18→20:23)
[2025-07-30] MEDS: AZITHROMYCIN 250 MG TABLET PO (09:18)
[2025-07-30] MEDS: DOCUSATE SODIUM 100 MG CAPSULE PO ×2 (09:18→16:18)
[2025-07-30] MEDS: PANTOPRAZOLE 40 MG TABLET PO (09:18)
[2025-07-30] MEDS: buPROPion HCL SR (12 HR) 150 MG TAB PO ×2 (09:18→20:23)
[2025-07-30] MEDS: ENOXAPARIN 40 MG/0.4 ML SYRINGE SUB-Q (09:18)
[2025-07-30] MEDS: ETHAMBUTOL HCL 400 MG TABLET 1200 MG PO (09:20)
--- NOTE | 2025-07-30 09:46 | P.PNIM_ITS ---
Progress Note: A&P Assessment and Plan (1) SNEHA (mycobacterium avium-intracellulare): Code(s): A31.0 - Pulmonary mycobacterial infection Status: Acute Assessment and Plan: Pulmonology and Infectious Disease consulted Continue azithromycin 250 mg due to hearing issues Continue Ethambutol 1200mg daily, Rifabutin 150mg daily, has follow-up with Lana OSWALD 08/08 ID and Pulmonology consulted (2) Leukocytosis: Code(s): D72.829 - Elevated white blood cell count, unspecified Status: Acute Assessment and Plan: Secondary to above Daily CBC (3) CHF (congestive heart failure), NYHA class I: Qualifiers: Congestive heart failure type: diastolic Congestive heart failure chronicity: chronic Qualified Code(s): I50.32 - Chronic diastolic (congestive) heart failure Code(s): I50.9 - Heart failure, unspecified Status: Chronic Assessment and Plan: Hard to tell chest x-ray if there is pulmonary edema on assessment patient is extremely coarse with rales IV Lasix Patient does not appear to be on Lasix at home, doses needed (4) Anxiety: Code(s): F41.9 - Anxiety disorder, unspecified Status: Acute Assessment and Plan: Continue Wellbutrin and Zoloft (5) HTN (hypertension): Qualifiers: Hypertension type: primary hypertension Qualified Code(s): I10 - Essential (primary) hypertension Code(s): I10 - Essential (primary) hypertension Status: Chronic Assessment and Plan: Continue metoprolol (6) Chronic anemia: Code(s): D64.9 - Anemia, unspecified Status: Acute Assessment and Plan: At baseline No need for transfusion (7) Pleural effusion on right: Code(s): J90 - Pleural effusion, not elsewhere classified Status: Acute Assessment and Plan: Pulmonary consulted IV Lasix x1 Plan Pneumonia CT chest showed improving opacities Continue Rocpehin adn Azithromycin meanwhile pending Pulm eval F/u cultures Abd pain CT AP no acute findinds But showed Aortic aneurysm PRN pain control Aortic aneurysm CT chest reviewed, 4 cm outpatient follow up DVT prophylaxis on Sq Lovenox Subjective Date/time seen: 07/30/25 09:46 Interval history: Complained of right lower abd pain, otherwise not in acute distress Review of Systems Review of Systems: 12 systems were reviewed and are negativ e except for as per HPI. Exam Narrative: General: Chronically-ill, malnourished HEENT: normocephalic, atraumatic. Mucous membranes moist. EOMI, PERRLA, bilateral sclera anicteric, no conjunctival injection. Neck supple without JVD, lymphadenopathy, or bruit. Respiratory: Coarse with rales Cardiovascular: Regular rate and rhythm, normal S1-S2 upon ascultation. No murmurs, rubs, or clicks. PMI is nondisplaced, capillary refill less than 3 second. Abdomen: Soft, round, no pulsatile masses, nondistended and nontender. No rebound, no guarding. No CVA tenderness, no hepatosplenomegaly. Bowel sounds present to all four quadrants. No high pitch or tinkling sounds, resonant to percussion. Extremities: No cyanosis, clubbing, or edema present. Pulses are palpable 2/2. Active ROM to all four extremities. Neuro: Alert and orientated x 4. PERRLA. Cranial nerves 2-12 intact without focal deficit. Skin: Warm, dry, and intact, without rash, erythema, or lesion. Psych: pleasant, cooperative, normal speech, normal affect, no hallucinations, no dysarthia Objective Data Vital Signs Vital Signs: Vital Signs - 24 hr 07/29/25 15:46 07/29/25 19:37 07/29/25 19:42 Temperature 98.2 F Pulse Rate 114 H 79 Respiratory Rate 20 20 Blood Pressure 106/48 L 127/60 Pulse Oximetry 99 100 100 Oxygen Delivery Room Air Nasal Cannula Oxygen Flow Rate 4 07/29/25 20:10 07/29/25 20:10 07/29/25 20:28 Temperature 98.3 F Pulse Rate 82 86 Respiratory Rate 17 20 Blood Pressure 119/82 144/54 H Pulse Oximetry 100 95 100 Oxygen Delivery Nasal Cannula Oxygen Flow Rate 4 07/29/25 20:44 07/30/25 00:00 07/30/25 00:00 Temperature 97 F L Pulse Rate 82 76 74 Respiratory Rate 17 20 Blood Pressure 117/44 L Pulse Oximetry 100 100 Oxygen Delivery Nasal Cannula Oxygen Flow Rate 5 07/30/25 04:00 07/30/25 04:00 07/30/25 06:13 Temperature 98.4 F Pulse Rate 96 77 89 Respiratory Rate 18 20 Blood Pressure 144/48 H Pulse Oximetry 100 Oxygen Delivery Oxygen Flow Rate 07/30/25 06:19 07/30/25 08:00 07/30/25 08:00 Temperature 98.2 F Pulse Rate 92 87 89 Respiratory Rate 20 18 Blood Pressure 103/72 Pulse Oximetry 98 Oxygen Delivery Oxygen Flow Rate Intake/Output Intake/Output: Intake & Output 07/27/25 07/28/25 07/29/25 07/30/25 23:59 23:59 23:59 23:59 Intake Total 500 580 Output Total 535 Balance 500 45 Meds/Results Medications: Active Medications Generic Name Dose Route Start Last Admin Trade Name Freq PRN Reason Stop Dose Admin Acetaminophen 650 mg 07/29/25 19:46 Acetaminophen 325 Mg Tablet PO Q4H PRN Mild Pain (1-3) or Fever Albuterol/Ipratropium 3 ml 07/30/25 05:49 Ipratropium 0.5 Mg/Albuterol Sulfate 2.5 Mg Ampul.Neb 3 Ml INHALATION Q4H PRN Dyspnea Aspirin 81 mg 07/30/25 09:00 07/30/25 09:17 Aspirin 81 Mg Enteric Tablet PO 81 mg DAILY GIOVANNY Administration Azithromycin 250 mg 07/30/25 09:00 07/30/25 09:18 Azithromycin 250 Mg Tablet PO 250 mg DAILY GIOVANNY Administration Baclofen 10 mg 07/30/25 21:00 Baclofen 10 Mg Tablet PO HS [facility] Baclofen 10 mg 07/29/25 22:33 Baclofen 10 Mg Tablet PO Q8H PRN Muscle Spasm Benzonatate 200 mg 07/29/25 21:19 Benzonatate 100 Mg Capsule PO TID PRN Cough Bisacodyl 10 mg 07/29/25 22:33 Bisacodyl 10 Mg Suppository RECTAL DAILY PRN Constipation Bupropion HCl 150 mg 07/30/25 09:00 07/30/25 09:18 Bupropion Hcl Sr (12 Hr) 150 Mg Tab PO 150 mg Q12HR GIOVANNY Administration Calcium Carbonate 200 mg 07/29/25 22:33 Calcium Carbonate (Tums) 500 Mg (200 Mg Elemental) PO Q6H PRN Indigestion Docusate Sodium 100 mg 07/30/25 09:00 07/30/25 09:18 Docusate Sodium 100 Mg Capsule PO 100 mg BID GIOVANNY Administration Enoxaparin Sodium 40 mg 07/30/25 09:00 07/30/25 09:18 Enoxaparin 40 Mg/0.4 Ml Syringe SUB-Q 40 mg DAILY GIOVANNY Administration Ethambutol HCl 1,200 mg 07/30/25 09:00 07/30/25 09:20 Ethambutol Hcl 400 Mg Tablet PO 1,200 mg DAILY GIOVANNY Administration Fenofibrate 145 mg 07/30/25 09:00 07/30/25 09:18 Fenofibrate Nanocrystallized 145 Mg Tablet PO 145 mg QAM GIOVANNY Administration Guaifenesin 1,200 mg 07/30/25 09:00 07/30/25 09:18 Guaifenesin 12 Hr 600 Mg Tabcr PO 1,200 mg Q12HR GIOVANNY Administration Lorazepam 0.5 mg 07/29/25 21:19 Lorazepam (*Crx) 0.5 Mg Tablet PO DAILY PRN Anxiety Metoprolol Tartrate 50 mg 07/30/25 21:00 Metoprolol Tartrate 50 Mg Tab PO HS [facility] Miscellaneous Information 0 each 07/29/25 00:01 Rifabutin Nonform Can Pt Bring From Home? XX 08/28/25 00:00 CLARIFY [facility] Miscellaneous Information 0 each 07/29/25 00:01 Sulindac Nonform Can Pt Bring From Home? XX 08/28/25 00:00 CLARIFY [facility] Morphine Sulfate 30 mg 07/29/25 22:33 07/30/25 09:16 Morphine Sulfate (*Crx) 30 Mg Tabcr PO 30 mg Q12H PRN Administration Pain 7-10 Nitroglycerin 0.4 mg 07/29/25 22:33 Nitroglycerin Sl 0.4 Mg Tablet SUBLINGUAL Q5M PRN Chest Pain Non-Formulary Medication 300 mg 07/30/25 09:00 Rifabutin PO 08/29/25 08:59 DAILY GIOVANNY Non-Formulary Medication 200 mg 07/30/25 09:00 Sulindac PO 08/29/25 08:59 BID GIOVANNY Pantoprazole Sodium 40 mg 07/30/25 09:00 07/30/25 09:18 Pantoprazole 40 Mg Tablet PO 40 mg QAM GIOVANNY Administration Sertraline HCl 50 mg 07/30/25 09:00 07/30/25 09:18 Sertraline Hcl 50 Mg Tablet PO 50 mg DAILY GIOVANNY Administration Tamsulosin HCl 0.4 mg 07/30/25 09:00 07/30/25 09:18 Tamsulosin Hcl 0.4 Mg Capsule PO 0.4 mg BID GIOVANNY Administration Trazodone HCl 100 mg 07/30/25 21:00 Trazodone Hcl 50 Mg Tablet PO [facility] Radiology Results: ITS Impressions Chest CTA 07/29/25 18:25 IMPRESSION: 1. No pulmonary embolism. Sensitivity decreased in some of the smaller subsegmental pulmonary arteries particularly at the lung bases due to some respiratory motion. 2. Emphysema with interval improvement in patchy pneumonia in the right middle and bilateral upper and lower lobes. 3. Chronic likely small right pleural effusion. 4. Pleural thickening the bilateral lung bases with regions of peripheral round atelectasis and pleural parenchymal scarring at the bilateral lower lobes. 5. Cardiomegaly. 6. Small sliding-type hiatal hernia. 7. Hepatosplenomegaly. 8. Ectatic infrarenal abdominal aorta measuring up to 3.7 cm. Labs Labs: Laboratory Results - last 24 hr 07/29/25 07/30/25 07/30/25 16:13 04:29 04:54 WBC 19.9 H 17.5 H RBC 3.59 L 3.56 L Hgb 10.0 L 9.9 L Hct 31.7 L 32.3 L MCV 88.3 90.7 MCH 27.9 27.8 MCHC 31.5 L 30.7 L RDW 16.0 H 16.1 H Plt Count 242 D 224 MPV 11.1 H 10.9 H Immature Gran % (Auto) 0.7 H 0.8 H Neut % (Auto) 91.0 H 86.8 H Lymph % (Auto) 2.1 L 7.1 L [place] % (Auto) 6.0 5.2 Eos % (Auto) 0.0 0.0 Baso % (Auto) 0.2 0.1 L Lymph # (Auto) 0.41 L 1.24 [place] # (Auto) 1.2 H 0.9 H Eos # (Auto) 0.0 0.0 Baso # (Auto) 0.0 0.0 Abs Immat Gran (auto) 0.14 H 0.14 H Absolute Neuts (auto) 18.1 H 15.2 H Absolute Nucleated RBC 0.000 0.000 Nucleated RBC % 0.0 0.0 Sodium 128 L 132 L Potassium 4.0 3.8 Chloride 96 L 96 L Carbon Dioxide 26 28 Anion Gap 6 8 BUN 15 D 15 Creatinine 0.84 0.95 Estim Creat Clear Calc Not Reportable 55 Estimated GFR > 60 > 60 Glucose 106 83 Calcium 8.7 8.7 Total Bilirubin 1.3 AST 56 ALT 25 Alkaline Phosphatase 97 NT-Pro-B Natriuret Pep 2480 H Total Protein 6.9 Albumin 3.4 L Urine Color Yellow Urine Appearance Clear Urine pH 6.0 Ur Specific [place] 1.022 Urine Protein Negative Urine Glucose (UA) Negative Urine Ketones Negative Ur Blood (Man) Negative Urine Nitrate Negative Urine Bilirubin Negative Urine Urobilinogen 1.0 Ur Leukocyte Esterase Negative Quality VTE Prophylaxis VTE prophylaxis: mechanical ordered and pharmacologic ordered
[2025-07-30] MEDS: cefTRIAXone 2 GM in SODIUM CHLORIDE 0.9% IV 100 ML 200 ML IVPB (12:35)
[2025-07-30] MEDS: HYDROcodone/acetaminophen (*CRX) 5-325 MG TABLET 1 TAB PO ×2 (13:06→19:01)
--- NOTE | 2025-07-30 15:05 | PHAR ---
HOME MED RIFABUTIN 150 MG CAPSULE; Color: Maroon, Shape: Capsule-shape, Imprint: Imprinted 041 on cap and Novitium over 150 mg on the body SULINDAC 200 MG TAB; Color: Yellow, Shape: Oval, Imprint: E 11 VERIFIED BY PHARMACY.
[2025-07-30] MEDS: SULINDAC 200 MG 200 EACH PO (16:18)
[2025-07-30] MEDS: RIFABUTIN 150 MG 300 EACH PO (16:18)
[2025-07-30] MEDS: LORazepam (*CRX) 0.5 MG TABLET PO (20:20)
[2025-07-30] MEDS: METOPROLOL TARTRATE 50 MG TAB PO (20:23)
[2025-07-30] MEDS: BACLOFEN 10 MG TABLET PO (20:24)
[2025-07-31] VITALS (12 sets, daily range): BP systolic 108–147; BP diastolic 41–61; PULSE 55–96; RESP 16–20; TEMP 36.1–38.6; O2SAT 95–100; BMI 22.5
--- NOTE | 2025-07-31 08:41 | P.CDI_ITS ---
CDI Query Clarification Request 1) Please review the clinical information below and clarify the respiratory diagnosis the patient is being treated for: * Hypoxia or hypoxemia without respiratory failure * Respiratory distress without respiratory failure * Acute respiratory failure with hypoxia * Acute respiratory failure with hypercapnia * Acute respiratory failure with hypoxia and hypercapnia * Acute on chronic respiratory failure with hypoxia * Acute on chronic respiratory failure with hypercapnia * Acute on chronic respiratory failure with hypoxia and hypercapnia * Acute respiratory distress syndrome (ARDS) * Chronic respiratory failure with hypoxia * Chronic respiratory failure with hypercapnia * Chronic respiratory failure with hypoxia and hypercapnia * Other explanation clinical findings, please specify * Unable to determine 2) Please clarify acuity of heart failure if known. * Acute * Chronic * Acute on Chronic * Unknown 3) ER documented hyponatremia, but diagnosis was not carried over is hospitalist documentation. Please clarify if diagnosis should be added to problem list. The medical chart reflects the following: This is an 80-year-old male that presents to the emergency department for shortness of breath. Worsening over the last couple of days. Patient currently on antibiotics for mycobacterium avium complex. Has had multiple recent admissions due to pneumonia. Does report a cough. Denies fevers or chest pain ER documented: Clinical Impression: Hyponatremia, Acute on chronic hypoxic respiratory failure Pneumonia Qualifiers: Pneumonia type: due to unspecified organism Laterality: bilateral Lung location: unspecified part of lung Qualified Code(s): J18.9 - Pneumonia, unspecified organism Metabolic panel with hyponatremia sodium of 128. Hospitalist documented: Assessment and Plan (1) SNEHA (mycobacterium avium-intracellulare): Code(s): A31.0 - Pulmonary mycobacterial infection Status: Acute Assessment and Plan: Pulmonology and Infectious Disease consulted Continue azithromycin 250 mg due to hearing issues Continue Ethambutol 1200mg daily, Rifabutin 150mg daily, [facility] and Pulmonology consulted (2) Leukocytosis: Code(s): D72.829 - Elevated white blood cell count, unspecified Status: Acute Assessment and Plan: Secondary to above Daily CBC (3) CHF (congestive heart failure), NYHA class I: Qualifiers: Congestive heart failure type: diastolic Congestive heart failure chronicity: chronic Qualified Code(s): I50.32 - Chronic diastolic (congestive) heart failure Code(s): I50.9 - Heart failure, unspecified Status: Chronic Assessment and Plan: Hard to tell chest x-ray if there is pulmonary edema on assessment patient is extremely coarse with rales IV Lasix Patient does not appear to be on Lasix at home, doses needed (4) Anxiety: Code(s): F41.9 - Anxiety disorder, unspecified Status: Acute Assessment and Plan: Continue Wellbutrin and Zoloft (5) HTN (hypertension): Qualifiers: Hypertension type: primary hypertension Qualified Code(s): I10 - Essential (primary) hypertension Code(s): I10 - Essential (primary) hypertension Status: Chronic Assessment and Plan: Continue metoprolol (6) Chronic anemia: Code(s): D64.9 - Anemia, unspecified Status: Acute Assessment and Plan: At baseline No need for transfusion (7) Pleural effusion on right: Code(s): J90 - Pleural effusion, not elsewhere classified Status: Acute Assessment and Plan: Pulmonary consulted IV Lasix x1 BNP 2480 Na 128 IV fluids 07/29 IV lasix given <Sadie Gilmore RN - Last Filed: 07/31/25 09:04> Clarified Diagnosis Clarified Diagnosis: Chronic respiratory failure with hypoxia <Delvin Rivera MD - Last Filed: 07/31/25 11:34>
[2025-07-31] MEDS: DOCUSATE SODIUM 100 MG CAPSULE PO ×2 (08:56→17:14)
[2025-07-31] MEDS: ETHAMBUTOL HCL 400 MG TABLET 1200 MG PO (08:56)
[2025-07-31] MEDS: AZITHROMYCIN 250 MG TABLET PO (08:56)
[2025-07-31] MEDS: PANTOPRAZOLE 40 MG TABLET PO (08:56)
[2025-07-31] MEDS: SERTRALINE HCL 50 MG TABLET PO (08:56)
[2025-07-31] MEDS: SULINDAC 200 MG 200 EACH PO ×2 (08:57→17:14)
[2025-07-31] MEDS: FENOFIBRATE NANOCRYSTALLIZED 145 MG TABLET PO (08:57)
[2025-07-31] MEDS: ASPIRIN 81 MG ENTERIC TABLET PO (08:57)
[2025-07-31] MEDS: buPROPion HCL SR (12 HR) 150 MG TAB PO ×2 (08:57→20:20)
[2025-07-31] MEDS: guaiFENesin 12 HR 600 MG TABCR 1200 MG PO ×2 (08:57→20:20)
[2025-07-31] MEDS: RIFABUTIN 150 MG 300 EACH PO (08:57)
[2025-07-31] MEDS: TAMSULOSIN HCL 0.4 MG CAPSULE PO ×2 (08:57→17:14)
[2025-07-31] MEDS: ENOXAPARIN 40 MG/0.4 ML SYRINGE SUB-Q (08:57)
[2025-07-31] MEDS: MORPHINE SULFATE (*CRX) 30 MG TABCR PO (09:10)
[2025-07-31] MEDS: LORazepam (*CRX) 0.5 MG TABLET PO (09:17)
--- NOTE | 2025-07-31 11:35 | P.PNIM_ITS ---
Progress Note: A&P Assessment and Plan (1) SNEHA (mycobacterium avium-intracellulare): Code(s): A31.0 - Pulmonary mycobacterial infection Status: Acute Assessment and Plan: Pulmonology and Infectious Disease consulted Continue azithromycin 250 mg due to hearing issues Continue Ethambutol 1200mg daily, Rifabutin 150mg daily, has follow-up with Lana OSWALD 08/08 ID and Pulmonology consulted, awaiting eval (2) Leukocytosis: Code(s): D72.829 - Elevated white blood cell count, unspecified Status: Acute Assessment and Plan: Secondary to above WBC 17.5 from 19.9 (3) CHF (congestive heart failure), NYHA class I: Qualifiers: Congestive heart failure type: diastolic Congestive heart failure chronicity: chronic Qualified Code(s): I50.32 - Chronic diastolic (congestive) heart failure Code(s): I50.9 - Heart failure, unspecified Status: Chronic Assessment and Plan: ECHO from 11/15 with EF 49% CT chest no pulm edema or pleural effusion lasix was discontinued monitor (4) Anxiety: Code(s): F41.9 - Anxiety disorder, unspecified Status: Acute Assessment and Plan: Continue Wellbutrin and Zoloft (5) HTN (hypertension): Qualifiers: Hypertension type: primary hypertension Qualified Code(s): I10 - Essential (primary) hypertension Code(s): I10 - Essential (primary) hypertension Status: Chronic Assessment and Plan: Continue metoprolol (6) Chronic anemia: Code(s): D64.9 - Anemia, unspecified Status: Acute Assessment and Plan: At baseline No need for transfusion (7) Pleural effusion on right: Code(s): J90 - Pleural effusion, not elsewhere classified Status: Acute Assessment and Plan: Pulmonary consulted IV Lasix x1 Plan Pneumonia CT chest showed improving opacities Continue Rocpehin adn Azithromycin meanwhile pending Pulm eval Leukocytosis improving 17.5 from 19.9 F/u cultures Abd pain CT AP no acute findings But showed Aortic aneurysm PRN pain control Aortic aneurysm CT chest reviewed, 4 cm outpatient follow up DVT prophylaxis on Sq Lovenox Subjective Date/time seen: 07/31/25 11:35 Interval history: Still complained of right lower abd pain, however CT AP no acute changes Review of Systems Review of Systems: 12 systems were reviewed and are negativ e except for as per HPI. Exam Narrative: General: Chronically-ill, malnourished HEENT: normocephalic, atraumatic. Mucous membranes moist. EOMI, PERRLA, bilateral sclera anicteric, no conjunctival injection. Neck supple without JVD, lymphadenopathy, or bruit. Respiratory: Coarse with rales Cardiovascular: Regular rate and rhythm, normal S1-S2 upon ascultation. No murmurs, rubs, or clicks. PMI is nondisplaced, capillary refill less than 3 second. Abdomen: Soft, round, no pulsatile masses, nondistended and nontender. No rebound, no guarding. No CVA tenderness, no hepatosplenomegaly. Bowel sounds present to all four quadrants. No high pitch or tinkling sounds, resonant to percussion. Extremities: No cyanosis, clubbing, or edema present. Pulses are palpable 2/2. Active ROM to all four extremities. Neuro: Alert and orientated x 4. PERRLA. Cranial nerves 2-12 intact without focal deficit. Skin: Warm, dry, and intact, without rash, erythema, or lesion. Psych: pleasant, cooperative, normal speech, normal affect, no hallucinations, no dysarthia Objective Data Vital Signs Vital Signs: Vital Signs - 24 hr 07/30/25 12:00 07/30/25 12:00 07/30/25 16:00 Temperature 98.9 F Pulse Rate 82 81 82 Respiratory Rate 18 Blood Pressure 111/46 L Pulse Oximetry 100 Oxygen Delivery Oxygen Flow Rate 07/30/25 16:00 07/30/25 20:00 07/30/25 20:00 Temperature 98.8 F Pulse Rate 78 114 H Respiratory Rate 18 Blood Pressure 115/55 L Pulse Oximetry 100 100 Oxygen Delivery Nasal Cannula Oxygen Flow Rate 07/30/25 20:11 07/30/25 20:17 07/30/25 20:23 Temperature 98 F Pulse Rate 114 H 118 H Respiratory Rate 20 Blood Pressure 90/52 L Pulse Oximetry 95 100 Oxygen Delivery Nasal Cannula Oxygen Flow Rate 07/30/25 23:20 07/31/25 00:00 07/31/25 03:25 Temperature 97.9 F 97 F L Pulse Rate 66 69 76 Respiratory Rate 20 20 Blood Pressure 117/40 L 128/45 L Pulse Oximetry 100 100 Oxygen Delivery Oxygen Flow Rate 07/31/25 04:00 07/31/25 07:45 07/31/25 08:00 Temperature 98.6 F Pulse Rate 55 L 96 Respiratory Rate 18 Blood Pressure 147/61 H Pulse Oximetry 95 95 Oxygen Delivery Nasal Cannula Oxygen Flow Rate 4 07/31/25 09:04 Temperature Pulse Rate 91 Respiratory Rate Blood Pressure Pulse Oximetry Oxygen Delivery Oxygen Flow Rate Intake/Output Intake/Output: Intake & Output 07/28/25 07/29/25 07/30/25 07/31/25 23:59 23:59 23:59 23:59 Intake Total 500 920 420 Output Total 935 350 Balance 500 -15 70 Meds/Results Medications: Active Medications Generic Name Dose Route Start Last Admin Trade Name Freq PRN Reason Stop Dose Admin Acetaminophen 650 mg 07/29/25 19:46 Acetaminophen 325 Mg Tablet PO Q4H PRN Mild Pain (1-3) or Fever Hydrocodone Bitart/Acetaminophen 1 tab 07/30/25 12:51 07/30/25 19:01 Hydrocodone/Acetaminophen (*Crx) 5-325 Mg Tablet PO 1 tab Q6H PRN Administration Pain Rated 4-6 Albuterol/Ipratropium 3 ml 07/30/25 05:49 Ipratropium 0.5 Mg/Albuterol Sulfate 2.5 Mg Ampul.Neb 3 Ml INHALATION Q4H PRN Dyspnea Aspirin 81 mg 07/30/25 09:00 07/31/25 08:57 Aspirin 81 Mg Enteric Tablet PO 81 mg DAILY GIOVANNY Administration Azithromycin 250 mg 07/30/25 09:00 07/31/25 08:56 Azithromycin 250 Mg Tablet PO 250 mg DAILY GIOVANNY Administration Baclofen 10 mg 07/30/25 21:00 07/30/25 20:24 Baclofen 10 Mg Tablet PO 10 mg HS GIOVANNY Administration Baclofen 10 mg 07/29/25 22:33 Baclofen 10 Mg Tablet PO Q8H PRN Muscle Spasm Benzonatate 200 mg 07/29/25 21:19 Benzonatate 100 Mg Capsule PO TID PRN Cough Bisacodyl 10 mg 07/29/25 22:33 Bisacodyl 10 Mg Suppository RECTAL DAILY PRN Constipation Bupropion HCl 150 mg 07/30/25 09:00 07/31/25 08:57 Bupropion Hcl Sr (12 Hr) 150 Mg Tab PO 150 mg Q12HR GIOVANNY Administration Calcium Carbonate 200 mg 07/29/25 22:33 Calcium Carbonate (Tums) 500 Mg (200 Mg Elemental) PO Q6H PRN Indigestion Docusate Sodium 100 mg 07/30/25 09:00 07/31/25 08:56 Docusate Sodium 100 Mg Capsule PO 100 mg BID GIOVANNY Administration Enoxaparin Sodium 40 mg 07/30/25 09:00 07/31/25 08:57 Enoxaparin 40 Mg/0.4 Ml Syringe SUB-Q 40 mg DAILY GIOVANNY Administration Ethambutol HCl 1,200 mg 07/30/25 09:00 07/31/25 08:56 Ethambutol Hcl 400 Mg Tablet PO 1,200 mg DAILY GIOVANNY Administration Fenofibrate 145 mg 07/30/25 09:00 07/31/25 08:57 Fenofibrate Nanocrystallized 145 Mg Tablet PO 145 mg QAM GIOVANNY Administration Guaifenesin 1,200 mg 07/30/25 09:00 07/31/25 08:57 Guaifenesin 12 Hr 600 Mg Tabcr PO 1,200 mg Q12HR GIOVANNY Administration Ceftriaxone Sodium 2 gm/ 100 mls @ 200 mls/hr 07/30/25 12:00 07/30/25 13:05 Sodium Chloride IVPB Infused Q24H GIOVANNY Infusion Lorazepam 0.5 mg 07/29/25 21:19 07/31/25 09:17 Lorazepam (*Crx) 0.5 Mg Tablet PO 0.5 mg DAILY PRN Administration Anxiety Metoprolol Tartrate 50 mg 07/30/25 21:00 07/30/25 20:23 Metoprolol Tartrate 50 Mg Tab PO 50 mg HS GIOVANNY Administration Morphine Sulfate 30 mg 07/29/25 22:33 07/31/25 09:10 Morphine Sulfate (*Crx) 30 Mg Tabcr PO 30 mg Q12H PRN Administration Pain 7-10 Nitroglycerin 0.4 mg 07/29/25 22:33 Nitroglycerin Sl 0.4 Mg Tablet SUBLINGUAL Q5M PRN Chest Pain Rifabutin 150 Mg 300 mg 07/30/25 16:00 07/31/25 08:57 Capsule Home Med PO 08/29/25 15:59 300 mg DAILY GIOVANNY Administration Sulindac 200 Mg 200 mg 07/30/25 17:00 07/31/25 08:57 Tablet Home Med PO 08/29/25 16:59 200 mg BID GIOVANNY Administration Pantoprazole Sodium 40 mg 07/30/25 09:00 07/31/25 08:56 Pantoprazole 40 Mg Tablet PO 40 mg QAM GIOVANNY Administration Sertraline HCl 50 mg 07/30/25 09:00 07/31/25 08:56 Sertraline Hcl 50 Mg Tablet PO 50 mg DAILY GIOVANNY Administration Tamsulosin HCl 0.4 mg 07/30/25 09:00 07/31/25 08:57 Tamsulosin Hcl 0.4 Mg Capsule PO 0.4 mg BID GIOVANNY Administration Trazodone HCl 100 mg 07/30/25 21:00 07/30/25 20:24 Trazodone Hcl 50 Mg Tablet PO 100 mg HS GIOVANNY Administration Radiology Results: ITS Impressions Chest CTA 07/29/25 18:25 IMPRESSION: 1. No pulmonary embolism. Sensitivity decreased in some of the smaller subsegmental pulmonary arteries particularly at the lung bases due to some respiratory motion. 2. Emphysema with interval improvement in patchy pneumonia in the right middle and bilateral upper and lower lobes. 3. Chronic likely small right pleural effusion. 4. Pleural thickening the bilateral lung bases with regions of peripheral round atelectasis and pleural parenchymal scarring at the bilateral lower lobes. 5. Cardiomegaly. 6. Small sliding-type hiatal hernia. 7. Hepatosplenomegaly. 8. Ectatic infrarenal abdominal aorta measuring up to 3.7 cm. Abdomen/Pelvis CT 07/30/25 10:18 IMPRESSION: 1. No acute intra-abdominal process. 2. Aortic aneurysm outpatient CTA recommended 3. Incidental findings above Chest X-Ray 07/30/25 11:28 Impression: Right lower lobe pneumonia Labs Labs: Laboratory Results - last 24 hr 07/30/25 20:14 POC Capillary Glucose 109 H Quality VTE Prophylaxis VTE prophylaxis: mechanical ordered and pharmacologic ordered
[2025-07-31] MEDS: cefTRIAXone 2 GM in SODIUM CHLORIDE 0.9% IV 100 ML 200 ML IVPB (12:44)
--- NOTE | 2025-07-31 14:50 | WPDIDCN ---
Assessment and Plan Assessment and plan (1) Pneumonia: Qualifiers: Laterality: bilateral Lung location: unspecified part of lung Pneumonia type: due to unspecified organism Qualified Code(s): J18.9 - Pneumonia, unspecified organism Code(s): J18.9 - Pneumonia, unspecified organism Status: Acute Plan # Possible community-acquired pneumonia. Above underlying SNEHA and COPD. 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 Consideration for acute exacerbation of the bronchiectasis. #SNEHA. On 3 drug therapy. Plan: Switch ceftriaxone to cefepime briefly. Continue SNEHA therapy with azithromycin ethambutol and rifabutin. Follow oxygen demands and patient's clinical exam. Possible oral step-down therapy as early as Thursday or Thursday. Planning at least 12-18 months of 3 drug therapy for SNEHA. We can follow-up in the outpatient setting to continue to monitor his symptoms for SNEHA therapy. Otherwise will follow-up tomorrow. HPI Data of Consult Date/Time: 07/31/25 14:50 Requesting Physician: Delvin Rivera MD Primary Care Provider: Rogelio Moeller DO Consult Narrative Reason for consult: Pneumonia. History of SNEHA Narrative: Russell Morse is a 80 year old male with history of COPD on 4 L nasal cannula at home as well as a history of SNEHA on azithromycin, ethambutol and rifabutin presenting with acute onset of shortness of breath. Patient states that he is basically at stopping his tracks see B12 some acute onset of her hunger. [place] tight. Could bring up a cough. [place] [address]. Do some concern for abdominal discomfort, CT abdomen pelvis was done. Lower cuts does show some infiltrate in the left lower lobe. No nausea vomiting. Previous sputum culture with Pseudomonas. Tolerating ceftriaxone. Still feeling some shortness of breath. No fevers presently. Did have some night sweats today. No unintentional weight loss. No diarrhea. Uses inhalers at home. No known sick contacts. [facility] Past Medical History Medical History (Updated 07/29/25 @ 20:43 by Zofia Kaiser PA-C) Anxiety Physical deconditioning NSVT (nonsustained ventricular tachycardia) Dysfunction of left eustachian tube Leukocytosis Heart failure with mildly reduced ejection fraction Chronic pulmonary aspergillosis Major depressive disorder, recurrent, mild Left foot drop Chronic kidney disease, stage 3 Spinal stenosis, lumbar region without neurogenic claudication Ischemic cardiomyopathy Echocardiogram 09/2021: Mildly reduced left ventricular systolic function EF of 45-50%, grade 1 diastolic dysfunction, inferior wall inferior septal wall basal inferior wall and mid inferior lateral wall hypokinesis with mild left atrial and large SVT (supraventricular tachycardia) 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 History of tobacco use Polio (1951) Other chronic pain Aortic stenosis Mild - Echo 05/15/2022 NSTEMI (non-ST elevated myocardial infarction) (08/2019) Atherosclerotic heart disease of minto coronary artery without angina pectoris Abdominal aortic aneurysm, without rupture Seen on CT scan on 02/09/2018 Restless legs syndrome Surgical History Surgical History History of tonsillectomy and adenoidectomy History of repair of rotator cuff bilateral History of colonoscopy with polypectomy History of bowel resection due to obstruction Presence of coronary angioplasty implant and graft History of coronary artery stent placement X2 History of mandibular surgery (1986) reconstructive surgery right mandible related to cancer Family History Family History Mother Diabetes mellitus Acute myocardial infarction Father Colon cancer COPD (chronic obstructive pulmonary disease) Sibling Colon cancer Acute myocardial infarction Lung cancer COPD (chronic obstructive pulmonary disease) Sibling COPD (chronic obstructive pulmonary disease) Sibling Congestive heart failure Sibling Dementia Social History Social History Social History: Surrogate medical decision maker: Yessi Morgan, daughter. Code status: Full code. But he states he would not want to be on a ventilator long-term have a tracheostomy or feeding tube. Smoking packs per day: 2 Smoking cigarettes per day: 40.0 Years smoked: 60 Smoking pack-years: 120.00 Smoking status: Former smoker Second hand tobacco smoke exposure: No Alcohol intake: never Substance use: never Substance use type: does not use Other substance usage details: quit alcohol in 2010 Last use: Last alcohol use 2010 Do You Feel Safe in your Home?: Yes Lack of Transportation: No Lack of Food: Never True Current Housing: I Have Housing Concerned About Future Housing: No Difficulty Paying Gas/Electric Bills: No Difficulty Paying for Meds: No Currently Unemployed: No Education: High School Diploma/GED Difficulty w/ Childcare or Family Care: No Living arrangements: with family Additional living arrangements comments: . Lives in [place] with son and [id number]. 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 Spiritual care concerns: No Agree to blood products: Yes Meds Home Medications and Allergies Home Medications ?Medication ?Instructions ?Recorded ?Confirmed ?Type aspirin 81 mg tablet,delayed 81 mg PO DAILY #90 tabs 06/15/23 07/29/25 Rx release fenofibrate 160 mg tablet 160 mg PO DAILY #90 tabs 09/16/23 07/29/25 Rx nebulizer accessories #1 ea 04/12/24 07/29/25 Rx nebulizer and compressor #1 ea 04/12/24 07/29/25 Rx albuterol sulfate 90 mcg/actuation 2 puff inhalation Q4H PRN 10/03/24 07/29/25 Rx aerosol inhaler Shortness Of Breath Or Wheezing #8.5 grams nitroglycerin 0.4 mg sublingual 0.4 mg sublingual Q5M PRN chest 12/08/24 07/29/25 Rx tablet pain #25 tabs sulindac 200 mg tablet 200 mg PO BID #180 tabs 04/07/25 07/29/25 Rx sertraline 50 mg tablet 50 mg PO DAILY #90 tabs 04/20/25 07/29/25 Rx hydroxyzine HCl 25 mg tablet 25 mg PO QID PRN anxiety #50 tabs 05/19/25 07/29/25 Rx trazodone 100 mg tablet 100 mg PO HS Insomnia #90 tabs 05/24/25 07/29/25 Rx esomeprazole magnesium 20 mg 20 mg PO DAILY 06/15/25 07/29/25 History capsule,delayed release ethambutol 400 mg tablet 1,200 mg PO DAILY 06/15/25 07/29/25 History tamsulosin 0.4 mg capsule 0.4 mg PO BID 06/15/25 07/29/25 History rifabutin 150 mg capsule 300 mg (2 x 150 mg) PO DAILY #60 06/30/25 07/29/25 Rx caps acetylcysteine 200 mg/mL (20 %) 200 mg inhalation Q6HRT #180 mL 07/02/25 07/29/25 Rx solution baclofen 10 mg tablet 10 mg PO HS #30 tabs 07/02/25 07/29/25 Rx benzonatate 100 mg capsule 200 mg (2 x 100 mg) PO TID PRN 07/02/25 07/29/25 Rx Cough #30 caps guaifenesin 600 mg tablet, 1,200 mg (2 x 600 mg) PO Q12HR #60 07/02/25 07/29/25 Rx extended release 12 hr (Mucus tabs Relief ER) ipratropium 0.5 mg-albuterol 3 mg 3 ml inhalation Q6HRT #180 mL 07/02/25 07/29/25 Rx (2.5 mg base)/3 mL nebulization soln morphine 30 mg tablet,extended 30 mg PO Q12H PRN pain 3 days #6 07/02/25 07/29/25 Rx release tabs olopatadine 0.2 % eye drops (Eye 1 drp EACH EYE DAILY PRN itching 07/02/25 07/29/25 Rx Allergy Itch Relief) #5 mL bupropion HCl 150 mg tablet,12 hr 150 mg PO BID #180 tabs 07/03/25 07/29/25 Rx sustained-release lorazepam 0.5 mg tablet (Ativan) 0.5 mg PO DAILY PRN anxiety #14 07/23/25 07/29/25 Rx tabs azithromycin 250 mg tablet 250 mg PO DAILY 07/29/25 07/29/25 History (Zithromax) baclofen 10 mg tablet 10 mg PO Q8H PRN muscle spasm 07/29/25 07/29/25 History bisacodyl 10 mg rectal suppository 10 mg RECTAL DAILY PRN constipation 07/29/25 07/29/25 History cilcitriol capsule See Rx Instructions .Route 07/29/25 07/29/25 History .COMPLEX hypocalcemia magnesium hydroxide 400 mg/5 mL 30 ml PO HS PRN constipation 07/29/25 07/29/25 History oral suspension (Milk of Magnesia) metoprolol tartrate 50 mg tablet 50 mg PO HS 07/29/25 07/29/25 History (Lopressor) Allergies Allergy/AdvReac Type Severity Reaction Status Date / Time clonazepam AdvReac Severe Drowsy Verified 07/29/25 20:59 roflumilast (From Dalires) AdvReac Severe Diarrhea Verified 07/29/25 20:59 Vital Signs Vital Signs - 24 hr 07/30/25 16:00 07/30/25 16:00 07/30/25 20:00 Temperature 37.1 C Pulse Rate 82 78 Respiratory Rate 18 Blood Pressure 115/55 L Pulse Oximetry 100 100 Oxygen Delivery Nasal Cannula Oxygen Flow Rate 4 07/30/25 20:00 07/30/25 20:11 07/30/25 20:17 Temperature 36.6 C Pulse Rate 114 H 114 H Respiratory Rate 20 Blood Pressure 90/52 L Pulse Oximetry 95 100 Oxygen Delivery Nasal Cannula Oxygen Flow Rate 4 07/30/25 20:23 07/30/25 23:20 07/31/25 00:00 Temperature 36.6 C Pulse Rate 118 H 66 69 Respiratory Rate 20 Blood Pressure 117/40 L Pulse Oximetry 100 Oxygen Delivery Oxygen Flow Rate 07/31/25 03:25 07/31/25 04:00 07/31/25 07:45 Temperature 36.1 C L 37.0 C Pulse Rate 76 55 L 96 Respiratory Rate 20 18 Blood Pressure 128/45 L 147/61 H Pulse Oximetry 100 95 Oxygen Delivery Oxygen Flow Rate 07/31/25 08:00 07/31/25 09:04 07/31/25 12:00 Temperature 36.8 C Pulse Rate 91 75 Respiratory Rate 17 Blood Pressure 108/45 L Pulse Oximetry 95 98 Oxygen Delivery Nasal Cannula Oxygen Flow Rate 4 Exam Const: Other: Examined via telemedicine. Patient is awake. Able to find any clear history. On 4 L nasal cannula. No accessory muscles for breathing. No audible wheezing. No rash. Peripheral IV left arm is intact. No phlebitis. Results Labs 07/30/25 04:29 07/30/25 04:29
[2025-07-31] MEDS: CEFEPIME 2 GM in SODIUM CHLORIDE 0.9% IV 50 ML 100 ML IVPB (14:52)
[2025-07-31] MEDS: METOPROLOL TARTRATE 50 MG TAB PO (20:19)
[2025-07-31] MEDS: BACLOFEN 10 MG TABLET PO (20:20)
[2025-07-31] MEDS: HYDROcodone/acetaminophen (*CRX) 5-325 MG TABLET 1 TAB PO (23:24)
[2025-08-01] VITALS (11 sets, daily range): BP systolic 104–122; BP diastolic 42–67; PULSE 59–102; RESP 14–20; TEMP 36.2–38.6; O2SAT 95–100
[2025-08-01 01:17] LABS: Hematocrit 28.4 % (42.0-52.0); Hemoglobin 8.8 g/dL (14.0-18.0); Immature Granulocyte Percent A 0.9 % (0-0.5); Lymphocytes Absolute Auto 0.27 K/mm3 (0.9-3.2); Mean Corpuscular HGB Conc 31.0 g/dl (32-36); Mean Corpuscular Hemoglobin 28.1 pg (26-34); Mean Corpuscular Volume 90.7 fl (80-100); Nucleated Red Blood Cells Absolute Auto 0.000 K/mm3 (0.0-0.012); Nucleated Red Blood Cells Perc 0.0 % (0.0-0.2); Platelet Count Result 205 k/mm3 (150-375); Red Blood Count 3.13 M/mm3 (4.6-6.20); White Blood Count 13.4 K/mm3 (4.5-10.0)
[2025-08-01 01:21] LABS: Alanine Aminotransferase 24 U/L (6-50); Albumin Level 3.1 g/dL (3.5-5.1); Alkaline Phosphatase 119 U/L (38-126); Anion Gap 6 mmol/L (4-12); Aspartate Amino Transferase 44 U/L (17-59); Bilirubin,Total 0.8 mg/dL (0.2-1.3); Blood Urea Nitrogen 28 mg/dL (9-20); Calcium 8.7 mg/dL (8.4-10.2); Carbon Dioxide 29 mmol/L (22-30); Chloride 94 mmol/L (98-107); Estimated CRCL calculation 40 ml/min; Estimated Glomerular Filt Rate 51; Glucose 161 mg/dL (65-110); Magnesium 2.0 mg/dL (1.6-2.3); Potassium 4.0 mmol/L (3.4-5.0); Sodium 129 mmol/L (137-145); Total Protein 6.3 g/dL (6.3-8.2)
[2025-08-01] MEDS: CEFEPIME 2 GM in SODIUM CHLORIDE 0.9% IV 50 ML 100 ML IVPB ×2 (01:28→13:38)
[2025-08-01 02:13] LABS: Procalcitonin 0.6 ng/mL
[2025-08-01 02:16] LABS: CRP 29.2 mg/dL (<1.0)
--- NOTE | 2025-08-01 08:20 | P.CDI_ITS ---
<Statement entered by Yumiko Black MD - 08/04/25 13:25> This documentation has been reviewed and approved. severe protein calorie malnutrition, agree CDI Query Clarification Request BMI: 22.3 Nutritional Diagnostic Statement: Please refer to the comprehensive nutrition assessment for further information. If you agree with diagnosis of Severe protein calorie malnutrition related to chronic loss of appetite, early satiety as evidenced by weight loss 12%/3 months; intakes <75% needs >1 month; severe muscle wasting and fat loss. Please specify severity if known: * Mild * Moderate * Severe * Other/Unknown
[2025-08-01] MEDS: MORPHINE SULFATE (*CRX) 30 MG TABCR PO (08:28)
[2025-08-01] MEDS: buPROPion HCL SR (12 HR) 150 MG TAB PO ×2 (08:29→20:27)
[2025-08-01] MEDS: PANTOPRAZOLE 40 MG TABLET PO (08:29)
[2025-08-01] MEDS: TAMSULOSIN HCL 0.4 MG CAPSULE PO ×2 (08:29→17:24)
[2025-08-01] MEDS: ASPIRIN 81 MG ENTERIC TABLET PO (08:29)
[2025-08-01] MEDS: DOCUSATE SODIUM 100 MG CAPSULE PO ×2 (08:29→17:24)
[2025-08-01] MEDS: guaiFENesin 12 HR 600 MG TABCR 1200 MG PO ×2 (08:29→20:26)
[2025-08-01] MEDS: LORazepam (*CRX) 0.5 MG TABLET PO (08:29)
[2025-08-01] MEDS: SERTRALINE HCL 50 MG TABLET PO (08:29)
[2025-08-01] MEDS: ETHAMBUTOL HCL 400 MG TABLET 1200 MG PO (08:30)
[2025-08-01] MEDS: AZITHROMYCIN 250 MG TABLET PO (08:31)
[2025-08-01] MEDS: SULINDAC 200 MG 200 EACH PO ×2 (08:33→17:25)
[2025-08-01] MEDS: RIFABUTIN 150 MG 300 EACH PO (08:33)
[2025-08-01] MEDS: ENOXAPARIN 40 MG/0.4 ML SYRINGE SUB-Q (08:37)
[2025-08-01] MEDS: FENOFIBRATE NANOCRYSTALLIZED 145 MG TABLET PO (08:37)
[2025-08-01 08:48] LABS: Add Urine Microscopic? YES; Appearance Urine Clear (Clear); Glucose Urine UA Negative (Negative); Leukocyte Esterase Ur Trace LEU/UL (Negative); Need Manual Microscopic Reviewed; Nitrate Urine Negative (Negative); Specific Grav Ur 1.018 (1.001-1.035)
[2025-08-01] MEDS: SENNOSIDES 8.6 MG TABLET PO (13:38)
--- NOTE | 2025-08-01 14:58 | P.PNINF_ITS ---
Progress Note: A&P Assessment and Plan (1) Pneumonia: Qualifiers: Laterality: bilateral Lung location: unspecified part of lung Pneumonia type: due to unspecified organism Qualified Code(s): J18.9 - Pneumonia, unspecified organism Code(s): J18.9 - Pneumonia, unspecified organism Status: Acute (2) COPD (chronic obstructive pulmonary disease): Code(s): J44.9 - Chronic obstructive pulmonary disease, unspecified Status: Acute (3) SANDI (acute kidney injury): Code(s): N17.9 - Acute kidney failure, unspecified Status: Acute (4) Mycobacterium avium complex colonization: Code(s): Z22.39 - Carrier of other specified bacterial diseases Status: Acute Plan 1 pneumonia 2. SNEHA on ethambutol, azithro and rifabutin 3. COPD on 4L o2 NC at baseline 4. SANDI RECOMMENDATIONS: -continue cefepime-->change to po high dose cipro in am (750 mg po bid) x 3 more days -continue SNEHA treatment for at least 12-18 months-->can follow up in ID clinic via telehealth with Dr. Keith Jolly -blood cxs NGTD--Repeat in process -APj=[id number] d/w pharmacy staff Patient was seen via video telehealth consultation with the assistance of staff. Chart, data and patient independently reviewed. Patient was located at [facility] while I was located in my [place] office. Received verbal consent from patient. Subjective Date/time seen: 08/01/25 14:58 Interval history: No cough. some pleuritic CP, No SOB. +ARCHULETA, feeing fair Exam Narrative: On 4.5L O2 NC, non-toxic, NAD, no conversational dyspnea Objective Data Vital Signs Vital Signs: Vital Signs - 24 hr 07/31/25 16:00 07/31/25 17:02 07/31/25 20:00 Temperature 97.6 F 98.2 F Pulse Rate 74 65 78 Respiratory Rate 16 20 Blood Pressure 110/48 L 131/46 L Pulse Oximetry 100 96 Oxygen Delivery Oxygen Flow Rate 07/31/25 20:00 07/31/25 20:00 07/31/25 20:19 Temperature Pulse Rate 64 67 Respiratory Rate Blood Pressure Pulse Oximetry 96 Oxygen Delivery Nasal Cannula Oxygen Flow Rate 4 07/31/25 23:50 08/01/25 00:00 08/01/25 00:34 Temperature 101.4 F H 101.4 F H Pulse Rate 96 102 H Respiratory Rate 20 Blood Pressure 118/41 L Pulse Oximetry 98 Oxygen Delivery Oxygen Flow Rate 08/01/25 04:00 08/01/25 04:00 08/01/25 08:00 Temperature 97.2 F L Pulse Rate 59 L 63 62 Respiratory Rate 20 Blood Pressure 104/42 L Pulse Oximetry 97 Oxygen Delivery Oxygen Flow Rate 08/01/25 08:00 08/01/25 08:35 08/01/25 12:00 Temperature 97.3 F L Pulse Rate 72 59 L Respiratory Rate 16 Blood Pressure 122/50 L Pulse Oximetry 100 98 Oxygen Delivery Nasal Cannula Oxygen Flow Rate 4 08/01/25 12:00 Temperature 98.0 F Pulse Rate 61 Respiratory Rate 14 Blood Pressure 110/50 L Pulse Oximetry 98 Oxygen Delivery Oxygen Flow Rate Intake/Output Intake/Output: Intake & Output 07/29/25 07/30/25 07/31/25 08/01/25 23:59 23:59 23:59 23:59 Intake Total 405 943 0079 640 Output Total 935 950 625 Balance 500 -15 650 15 Meds/Results Medications: Active Medications Generic Name Dose Route Start Last Admin Trade Name Freq PRN Reason Stop Dose Admin Acetaminophen 650 mg 07/29/25 19:46 Acetaminophen 325 Mg Tablet PO Q4H PRN Mild Pain (1-3) or Fever Hydrocodone Bitart/Acetaminophen 1 tab 07/30/25 12:51 07/31/25 23:24 Hydrocodone/Acetaminophen (*Crx) 5-325 Mg Tablet PO 1 tab Q6H PRN Administration Pain Rated 4-6 Albuterol/Ipratropium 3 ml 07/30/25 05:49 Ipratropium 0.5 Mg/Albuterol Sulfate 2.5 Mg Ampul.Neb 3 Ml INHALATION Q4H PRN Dyspnea Aspirin 81 mg 07/30/25 09:00 08/01/25 08:29 Aspirin 81 Mg Enteric Tablet PO 81 mg DAILY GIOVANNY Administration Azithromycin 250 mg 07/30/25 09:00 08/01/25 08:31 Azithromycin 250 Mg Tablet PO 250 mg DAILY GIOVANNY Administration Baclofen 10 mg 07/30/25 21:00 07/31/25 20:20 Baclofen 10 Mg Tablet PO 10 mg HS GIOVANNY Administration Baclofen 10 mg 07/29/25 22:33 Baclofen 10 Mg Tablet PO Q8H PRN Muscle Spasm Benzonatate 200 mg 07/29/25 21:19 Benzonatate 100 Mg Capsule PO TID PRN Cough Bisacodyl 10 mg 07/29/25 22:33 Bisacodyl 10 Mg Suppository RECTAL DAILY PRN Constipation Bupropion HCl 150 mg 07/30/25 09:00 08/01/25 08:29 Bupropion Hcl Sr (12 Hr) 150 Mg Tab PO 150 mg Q12HR GIOVANNY Administration Calcium Carbonate 200 mg 07/29/25 22:33 Calcium Carbonate (Tums) 500 Mg (200 Mg Elemental) PO Q6H PRN Indigestion Ciprofloxacin 750 mg 08/02/25 09:00 Ciprofloxacin 250 Mg Tablet PO 08/04/25 21:01 Q12HR [facility] Docusate Sodium 100 mg 07/30/25 09:00 08/01/25 08:29 Docusate Sodium 100 Mg Capsule PO 100 mg BID GIOVANNY Administration Enoxaparin Sodium 40 mg 07/30/25 09:00 08/01/25 08:37 Enoxaparin 40 Mg/0.4 Ml Syringe SUB-Q 40 mg DAILY GIOVANNY Administration Ethambutol HCl 1,200 mg 07/30/25 09:00 08/01/25 08:30 Ethambutol Hcl 400 Mg Tablet PO 1,200 mg DAILY GIOVANNY Administration Fenofibrate 145 mg 07/30/25 09:00 08/01/25 08:37 Fenofibrate Nanocrystallized 145 Mg Tablet PO 145 mg QAM GIOVANNY Administration Guaifenesin 1,200 mg 07/30/25 09:00 08/01/25 08:29 Guaifenesin 12 Hr 600 Mg Tabcr PO 1,200 mg Q12HR GIOVANNY Administration Cefepime HCl 2 gm/ Sodium 50 mls @ 100 mls/hr 07/31/25 14:00 08/01/25 14:11 Chloride IVPB 08/02/25 02:29 Infused Q12H [facility] Infusion Lorazepam 0.5 mg 07/29/25 21:19 08/01/25 08:29 Lorazepam (*Crx) 0.5 Mg Tablet PO 0.5 mg DAILY PRN Administration Anxiety Metoprolol Tartrate 50 mg 07/30/25 21:00 07/31/25 20:19 Metoprolol Tartrate 50 Mg Tab PO 50 mg HS GIOVANNY Administration Morphine Sulfate 30 mg 07/29/25 22:33 08/01/25 08:28 Morphine Sulfate (*Crx) 30 Mg Tabcr PO 30 mg Q12H PRN Administration Pain 7-10 Nitroglycerin 0.4 mg 07/29/25 22:33 Nitroglycerin Sl 0.4 Mg Tablet SUBLINGUAL Q5M PRN Chest Pain Rifabutin 150 Mg 300 mg 07/30/25 16:00 08/01/25 08:33 Capsule Home Med PO 08/29/25 15:59 300 mg DAILY GIOVANNY Administration Sulindac 200 Mg 200 mg 07/30/25 17:00 08/01/25 08:33 Tablet Home Med PO 08/29/25 16:59 200 mg BID GIOVANNY Administration Pantoprazole Sodium 40 mg 07/30/25 09:00 08/01/25 08:29 Pantoprazole 40 Mg Tablet PO 40 mg QAM GIOVANNY Administration Senna 8.6 mg 08/01/25 13:20 08/01/25 13:38 Sennosides 8.6 Mg Tablet PO 8.6 mg DAILY GIOVANNY Administration Sertraline HCl 50 mg 07/30/25 09:00 08/01/25 08:29 Sertraline Hcl 50 Mg Tablet PO 50 mg DAILY GIOVANNY Administration Tamsulosin HCl 0.4 mg 07/30/25 09:00 08/01/25 08:29 Tamsulosin Hcl 0.4 Mg Capsule PO 0.4 mg BID GIOVANNY Administration Trazodone HCl 100 mg 07/30/25 21:00 07/31/25 20:20 Trazodone Hcl 50 Mg Tablet PO 100 mg HS GIOVANNY Administration Radiology Results: ITS Impressions Chest CTA 07/29/25 18:25 IMPRESSION: 1. No pulmonary embolism. Sensitivity decreased in some of the smaller subsegmental pulmonary arteries particularly at the lung bases due to some respiratory motion. 2. Emphysema with interval improvement in patchy pneumonia in the right middle and bilateral upper and lower lobes. 3. Chronic likely small right pleural effusion. 4. Pleural thickening the bilateral lung bases with regions of peripheral round atelectasis and pleural parenchymal scarring at the bilateral lower lobes. 5. Cardiomegaly. 6. Small sliding-type hiatal hernia. 7. Hepatosplenomegaly. 8. Ectatic infrarenal abdominal aorta measuring up to 3.7 cm. Abdomen/Pelvis CT 07/30/25 10:18 IMPRESSION: 1. No acute intra-abdominal process. 2. Aortic aneurysm outpatient CTA recommended 3. Incidental findings above Chest X-Ray 07/30/25 11:28 Impression: Right lower lobe pneumonia Labs Labs: Laboratory Results - last 24 hr 08/01/25 08/01/25 01:02 08:22 WBC 13.4 H RBC 3.13 L Hgb 8.8 L Hct 28.4 L MCV 90.7 MCH 28.1 MCHC 31.0 L RDW 16.4 H Plt Count 205 MPV 11.9 H Immature Gran % (Auto) 0.9 H Neut % (Auto) 92.1 H Lymph % (Auto) 2.0 L [place] % (Auto) 4.8 Eos % (Auto) 0.1 Baso % (Auto) 0.1 L Lymph # (Auto) 0.27 L [place] # (Auto) 0.6 Eos # (Auto) 0.0 Baso # (Auto) 0.0 Abs Immat Gran (auto) 0.12 H Absolute Neuts (auto) 12.3 H Absolute Nucleated RBC 0.000 Nucleated RBC % 0.0 ESR > 140 H Sodium 129 L Potassium 4.0 Chloride 94 L Carbon Dioxide 29 Anion Gap 6 BUN 28 H D Creatinine 1.34 H Estim Creat Clear Calc 40 Estimated GFR 51 L Glucose 161 H Lactic Acid 1.5 Calcium 8.7 Magnesium 2.0 Total Bilirubin 0.8 AST 44 ALT 24 Alkaline Phosphatase 119 C-Reactive Protein 29.2 H Total Protein 6.3 Albumin 3.1 L Procalcitonin 0.6 Urine Color Dark yellow Urine Appearance Clear Urine pH 5.5 Ur Specific [place] 1.018 Urine Protein 1+ H Urine Glucose (UA) Negative Urine Ketones Trace H Ur Blood (Man) Negative Urine Nitrate Negative Urine Bilirubin Negative Urine Urobilinogen 1.0 Add Ur Microanalysis Reviewed Leukocyte Esterase Rfl Trace H Urine RBC 3-5 H Urine WBC 0-5 Ur Squamous Epith Cells Occasional Urine Bacteria None seen Urine Casts 3-5
--- NOTE | 2025-08-01 17:56 | P.PNIM_ITS ---
Progress Note: A&P Assessment and Plan (1) Combined systolic and diastolic congestive heart failure: Qualifiers: Heart failure chronicity: acute on chronic Qualified Code(s): I50.43 - Acute on chronic combined systolic (congestive) and diastolic (congestive) heart failure Code(s): I50.40 - Unspecified combined systolic (congestive) and diastolic (congestive) heart failure Status: Acute (2) Constipation: Code(s): K59.00 - Constipation, unspecified Status: Inactive (3) SNEHA (mycobacterium avium-intracellulare): Code(s): A31.0 - Pulmonary mycobacterial infection Status: Acute (4) Pneumonia: Qualifiers: Pneumonia type: due to unspecified organism Laterality: right Lung location: unspecified part of lung Qualified Code(s): J18.9 - Pneumonia, unspecified organism Code(s): J18.9 - Pneumonia, unspecified organism Status: Acute Plan Leukocytosis improving, continue to trend. Plan to change cefepime to high-dose ciprofloxacin, 750 mg p.o. b.i.d. x3 days on 08/02/2025. Continue SNEHA treatment. Appreciate Infectious Disease recommendations. Follow-up blood cultures. Monitor QTC. Mild SANDI. Has very poor intake continue to hold Lasix and start normal saline infusion at 100 cc/hour. He is currently at his baseline 4 L nasal cannula. No shortness of breath. He appears slightly dehydrated, no crackles on lung exam. No lower extremity edema. Complains of pain at the right upper quadrant when breathing deeply. LFTs are normal. He is feeling very full after a few bites. Constipated for 6 days now. Give MiraLax x1, start Senokot S1 tab p.o. b.i.d., monitor for/improvement of constipation. May give more laxatives if needed. Trend renal function. Patient wishes to be DNR. Subjective Date/time seen: 08/01/25 17:56 Interval history: No major acute overnight events. Patient reports constipation for 6 days now and when he takes a deep breath there is a fullness and pain at his right side of abdomen. He has been eating very little due to being full very quickly. Otherwise denies shortness of breath, fever, chest pain. Review of Systems Review of Systems: All systems reviewed & are unremarkable except as noted in HPI and below (Subjective) Exam Const: General: comfortable and no acute distress Eyes: Pupils: Equal, round and reactive pupils present Neck: Neck: supple Resp: Effort & Inspection: normal respiratory effort Other: Coarse breath sounds Cardio: Rate: regular rate Rhythm: regular rhythm GI: Inspection: non-distended GI Palp: Yes Soft to palpation Other: Mild tenderness to deep palpation of the right upper quadrant. Extrem: General: no edema Objective Data Vital Signs Vital Signs: Vital Signs - 24 hr 07/31/25 20:00 07/31/25 20:00 07/31/25 20:00 Temperature 98.2 F Pulse Rate 78 64 Respiratory Rate 20 Blood Pressure 131/46 L Pulse Oximetry 96 96 Oxygen Delivery Nasal Cannula Oxygen Flow Rate 4 07/31/25 20:19 07/31/25 23:50 08/01/25 00:00 Temperature 101.4 F H Pulse Rate 67 96 102 H Respiratory Rate 20 Blood Pressure 118/41 L Pulse Oximetry 98 Oxygen Delivery Oxygen Flow Rate 08/01/25 00:34 08/01/25 04:00 08/01/25 04:00 Temperature 101.4 F H 97.2 F L Pulse Rate 59 L 63 Respiratory Rate 20 Blood Pressure 104/42 L Pulse Oximetry 97 Oxygen Delivery Oxygen Flow Rate 08/01/25 08:00 08/01/25 08:00 08/01/25 08:35 Temperature 97.3 F L Pulse Rate 62 72 Respiratory Rate 16 Blood Pressure 122/50 L Pulse Oximetry 100 98 Oxygen Delivery Nasal Cannula Oxygen Flow Rate 4 08/01/25 12:00 08/01/25 12:00 08/01/25 12:00 Temperature 98.0 F Pulse Rate 59 L 61 Respiratory Rate 14 Blood Pressure 110/50 L Pulse Oximetry 98 98 Oxygen Delivery Nasal Cannula Oxygen Flow Rate 4 08/01/25 16:00 Temperature Pulse Rate 70 Respiratory Rate Blood Pressure Pulse Oximetry Oxygen Delivery Oxygen Flow Rate Intake/Output Intake/Output: Intake & Output 07/29/25 07/30/25 07/31/25 08/01/25 23:59 23:59 23:59 23:59 Intake Total 208 410 8727 640 Output Total 935 950 625 Balance 500 -15 650 15 Meds/Results Medications: Active Medications Generic Name Dose Route Start Last Admin Trade Name Freq PRN Reason Stop Dose Admin Acetaminophen 650 mg 07/29/25 19:46 Acetaminophen 325 Mg Tablet PO Q4H PRN Mild Pain (1-3) or Fever Hydrocodone Bitart/Acetaminophen 1 tab 07/30/25 12:51 07/31/25 23:24 Hydrocodone/Acetaminophen (*Crx) 5-325 Mg Tablet PO 1 tab Q6H PRN Administration Pain Rated 4-6 Albuterol/Ipratropium 3 ml 07/30/25 05:49 Ipratropium 0.5 Mg/Albuterol Sulfate 2.5 Mg Ampul.Neb 3 Ml INHALATION Q4H PRN Dyspnea Aspirin 81 mg 07/30/25 09:00 08/01/25 08:29 Aspirin 81 Mg Enteric Tablet PO 81 mg DAILY GIOVANNY Administration Azithromycin 250 mg 07/30/25 09:00 08/01/25 08:31 Azithromycin 250 Mg Tablet PO 250 mg DAILY GIOVANNY Administration Baclofen 10 mg 07/30/25 21:00 07/31/25 20:20 Baclofen 10 Mg Tablet PO 10 mg HS GIOVANNY Administration Baclofen 10 mg 07/29/25 22:33 Baclofen 10 Mg Tablet PO Q8H PRN Muscle Spasm Benzonatate 200 mg 07/29/25 21:19 Benzonatate 100 Mg Capsule PO TID PRN Cough Bisacodyl 10 mg 07/29/25 22:33 Bisacodyl 10 Mg Suppository RECTAL DAILY PRN Constipation Bupropion HCl 150 mg 07/30/25 09:00 08/01/25 08:29 Bupropion Hcl Sr (12 Hr) 150 Mg Tab PO 150 mg Q12HR GIOVANNY Administration Calcium Carbonate 200 mg 07/29/25 22:33 Calcium Carbonate (Tums) 500 Mg (200 Mg Elemental) PO Q6H PRN Indigestion Ciprofloxacin 750 mg 08/02/25 09:00 Ciprofloxacin 250 Mg Tablet PO 08/04/25 21:01 Q12HR GIOVANNY Docusate Sodium 100 mg 07/30/25 09:00 08/01/25 17:24 Docusate Sodium 100 Mg Capsule PO 100 mg BID GIOVANNY Administration Enoxaparin Sodium 40 mg 07/30/25 09:00 08/01/25 08:37 Enoxaparin 40 Mg/0.4 Ml Syringe SUB-Q 40 mg DAILY GIOVANNY Administration Ethambutol HCl 1,200 mg 07/30/25 09:00 08/01/25 08:30 Ethambutol Hcl 400 Mg Tablet PO 1,200 mg DAILY GIOVANNY Administration Fenofibrate 145 mg 07/30/25 09:00 08/01/25 08:37 Fenofibrate Nanocrystallized 145 Mg Tablet PO 145 mg QAM GIOVANNY Administration Guaifenesin 1,200 mg 07/30/25 09:00 08/01/25 08:29 Guaifenesin 12 Hr 600 Mg Tabcr PO 1,200 mg Q12HR GIOVANNY Administration Cefepime HCl 2 gm/ Sodium 50 mls @ 100 mls/hr 07/31/25 14:00 08/01/25 14:11 Chloride IVPB 08/02/25 02:29 Infused Q12H GIOVANNY Infusion Lorazepam 0.5 mg 07/29/25 21:19 08/01/25 08:29 Lorazepam (*Crx) 0.5 Mg Tablet PO 0.5 mg DAILY PRN Administration Anxiety Metoprolol Tartrate 50 mg 07/30/25 21:00 07/31/25 20:19 Metoprolol Tartrate 50 Mg Tab PO 50 mg HS GIOVANNY Administration Morphine Sulfate 30 mg 07/29/25 22:33 08/01/25 08:28 Morphine Sulfate (*Crx) 30 Mg Tabcr PO 30 mg Q12H PRN Administration Pain 7-10 Nitroglycerin 0.4 mg 07/29/25 22:33 Nitroglycerin Sl 0.4 Mg Tablet SUBLINGUAL Q5M PRN Chest Pain Rifabutin 150 Mg 300 mg 07/30/25 16:00 08/01/25 08:33 Capsule Home Med PO 08/29/25 15:59 300 mg DAILY GIOVANNY Administration Sulindac 200 Mg 200 mg 07/30/25 17:00 08/01/25 17:25 Tablet Home Med PO 08/29/25 16:59 200 mg BID GIOVANNY Administration Pantoprazole Sodium 40 mg 07/30/25 09:00 08/01/25 08:29 Pantoprazole 40 Mg Tablet PO 40 mg QAM GIOVANNY Administration Senna 8.6 mg 08/01/25 13:20 08/01/25 13:38 Sennosides 8.6 Mg Tablet PO 8.6 mg DAILY GIOVANNY Administration Sertraline HCl 50 mg 07/30/25 09:00 08/01/25 08:29 Sertraline Hcl 50 Mg Tablet PO 50 mg DAILY GIOVANNY Administration Tamsulosin HCl 0.4 mg 07/30/25 09:00 08/01/25 17:24 Tamsulosin Hcl 0.4 Mg Capsule PO 0.4 mg BID GIOVANNY Administration Trazodone HCl 100 mg 07/30/25 21:00 07/31/25 20:20 Trazodone Hcl 50 Mg Tablet PO 100 mg HS GIOVANNY Administration Radiology Results: ITS Impressions Chest CTA 07/29/25 18:25 IMPRESSION: 1. No pulmonary embolism. Sensitivity decreased in some of the smaller subsegmental pulmonary arteries particularly at the lung bases due to some respiratory motion. 2. Emphysema with interval improvement in patchy pneumonia in the right middle and bilateral upper and lower lobes. 3. Chronic likely small right pleural effusion. 4. Pleural thickening the bilateral lung bases with regions of peripheral round atelectasis and pleural parenchymal scarring at the bilateral lower lobes. 5. Cardiomegaly. 6. Small sliding-type hiatal hernia. 7. Hepatosplenomegaly. 8. Ectatic infrarenal abdominal aorta measuring up to 3.7 cm. Abdomen/Pelvis CT 07/30/25 10:18 IMPRESSION: 1. No acute intra-abdominal process. 2. Aortic aneurysm outpatient CTA recommended 3. Incidental findings above Chest X-Ray 07/30/25 11:28 Impression: Right lower lobe pneumonia Labs Labs: Laboratory Results - last 24 hr 08/01/25 08/01/25 01:02 08:22 WBC 13.4 H RBC 3.13 L Hgb 8.8 L Hct 28.4 L MCV 90.7 MCH 28.1 MCHC 31.0 L RDW 16.4 H Plt Count 205 MPV 11.9 H Immature Gran % (Auto) 0.9 H Neut % (Auto) 92.1 H Lymph % (Auto) 2.0 L [place] % (Auto) 4.8 Eos % (Auto) 0.1 Baso % (Auto) 0.1 L Lymph # (Auto) 0.27 L [place] # (Auto) 0.6 Eos # (Auto) 0.0 Baso # (Auto) 0.0 Abs Immat Gran (auto) 0.12 H Absolute Neuts (auto) 12.3 H Absolute Nucleated RBC 0.000 Nucleated RBC % 0.0 ESR > 140 H Sodium 129 L Potassium 4.0 Chloride 94 L Carbon Dioxide 29 Anion Gap 6 BUN 28 H D Creatinine 1.34 H Estim Creat Clear Calc 40 Estimated GFR 51 L Glucose 161 H Lactic Acid 1.5 Calcium 8.7 Magnesium 2.0 Total Bilirubin 0.8 AST 44 ALT 24 Alkaline Phosphatase 119 C-Reactive Protein 29.2 H Total Protein 6.3 Albumin 3.1 L Procalcitonin 0.6 Urine Color Dark yellow Urine Appearance Clear Urine pH 5.5 Ur Specific [employer] 1.018 Urine Protein 1+ H Urine Glucose (UA) Negative Urine Ketones Trace H Ur Blood (Man) Negative Urine Nitrate Negative Urine Bilirubin Negative Urine Urobilinogen 1.0 Add Ur Microanalysis Reviewed Leukocyte Esterase Rfl Trace H Urine RBC 3-5 H Urine WBC 0-5 Ur Squamous Epith Cells Occasional Urine Bacteria None seen Urine Casts 3-5
[2025-08-01] MEDS: SODIUM CHLORIDE 0.9% IV 1,000 ML 100 ML IV CONT (18:13)
[2025-08-01] MEDS: HYDROcodone/acetaminophen (*CRX) 5-325 MG TABLET 1 TAB PO (20:26)
[2025-08-01] MEDS: BACLOFEN 10 MG TABLET PO (20:26)
[2025-08-01] MEDS: METOPROLOL TARTRATE 50 MG TAB PO (20:26)
[2025-08-02] VITALS (15 sets, daily range): BP systolic 104–125; BP diastolic 40–58; PULSE 60–129; RESP 18–24; TEMP 36.4–36.8; O2SAT 92–100
[2025-08-02] MEDS: CEFEPIME 2 GM in SODIUM CHLORIDE 0.9% IV 50 ML 100 ML IVPB (01:02)
[2025-08-02] MEDS: SODIUM CHLORIDE 0.9% IV 1,000 ML 100 ML IV CONT (04:59)
[2025-08-02 05:12] LABS: Hematocrit 24.2 % (42.0-52.0); Hemoglobin 7.3 g/dL (14.0-18.0); Immature Granulocyte Percent A 0.5 % (0-0.5); Lymphocytes Absolute Auto 0.56 K/mm3 (0.9-3.2); Mean Corpuscular HGB Conc 30.2 g/dl (32-36); Mean Corpuscular Hemoglobin 27.2 pg (26-34); Mean Corpuscular Volume 90.3 fl (80-100); Nucleated Red Blood Cells Absolute Auto 0.000 K/mm3 (0.0-0.012); Nucleated Red Blood Cells Perc 0.0 % (0.0-0.2); Platelet Count Result 160 k/mm3 (150-375); Red Blood Count 2.68 M/mm3 (4.6-6.20); White Blood Count 7.4 K/mm3 (4.5-10.0)
[2025-08-02 05:42] LABS: Anion Gap 5 mmol/L (4-12); Blood Urea Nitrogen 32 mg/dL (9-20); Calcium 7.9 mg/dL (8.4-10.2); Carbon Dioxide 27 mmol/L (22-30); Chloride 98 mmol/L (98-107); Estimated CRCL calculation 46 ml/min; Estimated Glomerular Filt Rate 60; Glucose 115 mg/dL (65-110); Magnesium 2.1 mg/dL (1.6-2.3); Potassium 4.1 mmol/L (3.4-5.0); Sodium 130 mmol/L (137-145)
[2025-08-02] MEDS: IPRATROPIUM 0.5 MG/ALBUTEROL SULFATE 2.5 MG AMPUL.NEB 3 ML INHALATION ×2 (07:49→20:37)
[2025-08-02] MEDS: guaiFENesin 12 HR 600 MG TABCR 1200 MG PO ×2 (08:19→20:12)
[2025-08-02] MEDS: TAMSULOSIN HCL 0.4 MG CAPSULE PO ×2 (08:20→17:01)
[2025-08-02] MEDS: CIPROFLOXACIN 250 MG TABLET 750 MG PO ×2 (08:20→20:11)
[2025-08-02] MEDS: MORPHINE SULFATE (*CRX) 30 MG TABCR PO (08:20)
[2025-08-02] MEDS: ETHAMBUTOL HCL 400 MG TABLET 1200 MG PO (08:20)
[2025-08-02] MEDS: LORazepam (*CRX) 0.5 MG TABLET PO (08:20)
[2025-08-02] MEDS: ASPIRIN 81 MG ENTERIC TABLET PO (08:20)
[2025-08-02] MEDS: SENNA/DOCUSATE SODIUM TABLET 1 TAB PO ×2 (08:21→17:01)
[2025-08-02] MEDS: PANTOPRAZOLE 40 MG TABLET PO (08:21)
[2025-08-02] MEDS: SERTRALINE HCL 50 MG TABLET PO (08:21)
[2025-08-02] MEDS: buPROPion HCL SR (12 HR) 150 MG TAB PO ×2 (08:21→20:12)
[2025-08-02] MEDS: AZITHROMYCIN 250 MG TABLET PO (08:21)
[2025-08-02] MEDS: FENOFIBRATE NANOCRYSTALLIZED 145 MG TABLET PO (08:21)
[2025-08-02] MEDS: RIFABUTIN 150 MG 300 EACH PO (08:22)
[2025-08-02] MEDS: SULINDAC 200 MG 200 EACH PO ×2 (08:22→17:06)
[2025-08-02] MEDS: ENOXAPARIN 40 MG/0.4 ML SYRINGE SUB-Q (08:27)
--- NOTE | 2025-08-02 10:10 | PM.CNPUL ---
Assessment and Plan Assessment and plan (1) Pneumonia: Qualifiers: Laterality: bilateral Lung location: unspecified part of lung Pneumonia type: due to unspecified organism Qualified Code(s): J18.9 - Pneumonia, unspecified organism Code(s): J18.9 - Pneumonia, unspecified organism Status: Acute Assessment and Plan: He has a right lower lobe infiltrate on chest x-ray and chest CT, the CTA shows that this is improving. Infectious Disease Dr. Keith Jolly switched ceftriaxone to cefepime, now switched to oral Cipro today. Outlined plans to continue his SNEHA Rx with azithromycin, ethambutol, rifabutin x 18 months. (2) Chronic hypoxic respiratory failure, on home oxygen therapy: Code(s): J96.11 - Chronic respiratory failure with hypoxia; Z99.81 - Dependence on supplemental oxygen Status: Acute Assessment and Plan: He is on his same O2 requirement at home, 4 L/min (3) Chronic obstructive pulmonary disease: Qualifiers: COPD type: chronic bronchitis Chronic bronchitis type: unspecified Qualified Code(s): J42 - Unspecified chronic bronchitis Code(s): J44.9 - Chronic obstructive pulmonary disease, unspecified Status: Acute Assessment and Plan: Long standing (4) History of tobacco use: Code(s): Z87.891 - Personal history of nicotine dependence Status: Acute Assessment and Plan: former smoker. Plan plan: I am adding respiratory therapy order to provide a Cornet PEP valve, a critically important part of his pulmonary hygiene program. When he was in the hospital in May, he had not been using any form of pulmonary hygiene. This really helped considerably. He comes to the hospital often. We need to be vigilant about keeping his airways clear since this is a central component of SNEHA management, and will help for regular pneumonia treatment. History of Present Illness History of Present Illness Consult date: 08/02/25 Requesting physician: Yumiko Black MD Chief complaint: Pneumonia, acute on chronic respiratory failure, h Narrative: Patient was seen on August 02, 2025 at 10:50 a.m., room 246 NEW: Russell Morse is an 80-year-old man well known to our service, admitted on July 29 with an elevated white blood cell count 19.9k and a chest x-ray showing a right lower lobe infiltrate. He has COPD, SNEHA infection being managed by the ID clinic at [facility] on azithromycin, rifabutin and ethambutol, Pseudomonas colonization, on home O2 4 L a minute. He tells me that he was sick for about 3 days prior to admission. He was not able to ambulate to the dining page for 2 and half days before admission. His roommate was telling him to stop coughing so much at night. He had the same light yellow sputum that he normally has. He does feel better today August 02 compared to admission. He had a chest CTA showing no PE, emphysema, interval improvement in the right lower lobe infiltrate, pleural thickening in the lung bases with round atelectasis, small right pleural effusion. He was last discharged from [facility] on July 23, went to [facility] in [place] as his son and [id number] cannot care for him adequately at home any longer. He has had multiple admissions over the last 2 months. He had a chest x-ray on July 11, 2025 at [facility]. There was no comparison to other old chest x-rays. Interpretation said bilateral opacities with a note that said to make sure his pulmonary doctor was involved. DATA * 07/29/25, CXR, IMPRESSION: 1. Emphysema with persistent coarse reticular pattern in the right mid to lower and left lower lung zones which in acute setting could represent mild pulmonary edema, pneumonia or atelectasis or more chronic interstitial lung disease. Chronic small right pleural effusion. * 07/29/2025, CTA ; IMPRESSION: 1. No pulmonary embolism. Sensitivity decreased in some of the smaller subsegmental pulmonary arteries particularly at the lung bases due to some respiratory motion. 2. Emphysema with interval improvement in patchy pneumonia in the right middle and bilateral upper and lower lobes. 3. Chronic likely small right pleural effusion. 4. Pleural thickening the bilateral lung bases with regions of peripheral round atelectasis and pleural parenchymal scarring at the bilateral lower lobes. 5. Cardiomegaly. 6. Small sliding-type hiatal hernia. 7. Hepatosplenomegaly. 8. Ectatic infrarenal abdominal aorta measuring up to 3.7 cm. * 07/30/25. CXR: Impression: Right lower lobe pneumonia HISTORY = = = = = = = = = = = These are prior notes, the first one is Dr Gottlieb's consult from 07/02/2025. This is a new pulmonary consult for COPD with pulmonary MAC 80-year-old with a history of coronary artery disease status post non ST elevation AR 08/2019, ischemic cardiomyopathy, hypertension, hyperlipidemia, Gold grade 2 group B COPD on home oxygen 4 L at rest, with activity and with sleep and MAC lung disease (started on ribabutin, azithromycin and ethambutol on 06/05/2025) patient is followed in the Pulmonary Clinic. He has required antibiotics for lung infections on: 02/25/2024, 04/10/2024, 09/08/2024, 10/04/2024, 11/04/2024, 11/20/2024, 12/02/2024, 03/02/2025, 04/25/2025, 05/12/2025, 05/22/2025, 05/30/2025 and 06/15/2025. Patient recently admitted to the hospital from 06/15/2025 to 06/23/2025 for shortness of breath and hypoxia. he was treated with Levaquin, pulmonary hygiene maneuvers and his azithromycin was decreased from 500 mg p.o. q.day to 250 mg p.o. q.day due to hearing decrease. Patient left the hospital on 06/23/2024 in no respiratory distress but he was weak and fatigued easily. I spoke to the son Marco today. The patient lives in Marco's house and tired sees him every day. The patient's daughter had been the primary caregiver but now Sim is the caregiver. The patient was in his usual state of health until 06/27/2025 when he was very tired and exhausted. 06/28/2025 was supposed to be the patient's 1st day for home health therapy but he was somewhat confused, sleep and not waking up during the day. His room air saturations on 4 L were 91%. He denied fever, chills, rigors, change in his cough, change in his phlegm or hemoptysis. With activity on 4 L patient saturation decreased to 85%. Patient remained somnolent and EMS was called. 06/28/25 Patient presented to the emergency room with blood pressure 111/47, heart rate 82, respirations 18, temperature 98?, non-rebreather mask 7 L saturation 97%. White blood cell count 14.8, creatinine 1.46, BUN 45, BNP 669. ABG on 2 L was 7.37/49/113. CT angiogram of the chest showed emphysema. New consolidative infiltrate anterior segment left upper lobe, worsening consolidation and infiltrate in the suit soup superior segment of the left lower lobe in no change in his chronic infiltrates right upper lobe, right middle lobe, right lower lobe and no change in his small right pleural effusion. Patient was given bronchodilators, Solu-Medrol 125, ceftriaxone and azithromycin admitted to the hospital. 06/29/2025: Admitted to the floor and placed on prednisone 40 mg p.o. q.day, azithromycin 250 a day, ethambutol 1200 mg p.o. q.day, and DuoNebs q.6 hour. patient was on 2 L nasal cannula in the morning with saturations 92. At 8:00 p.m. patient was on 3 L nasal cannula saturations 96%. 06/30/2025: Today the patient tells me he is breathing at his baseline. His son Sim saw him this morning and feels that he is breathing the same as he was when he left the hospital on 06/23/2025. His cough is at his baseline. He has minimal phlegm. He denies fever, chills, rigors, hemoptysis. when I enter the room he was on 4 L with saturations 98%. I decreased him to room air and his saturations were 89%. I placed him back on 2 L and his saturations were 100%. The patient walked 8 ft with physical therapy and she told me his saturations on 4 L decreased to 85%. His white blood cell count is 7.4, his creatinine is 1.10, he is afebrile. on detailed review of the patient's pills and pill bottles at home with Tod over the phone ethambutol was not seen. Rifabutin was emptied. Patient called the clinic on 06/27/2025 stating they sent him home from the hospital on 06/23/2025 without azithromycin and I prescribed azithromycin 250 a day for 30 days and they filled the prescription for 5 pills and he took this on 06/27 and 06/28/25 DATA: 06/23/25:. His sputum shows moderate growth of Pseudomonas aeruginosa (recurrent) and Lucia. Pseudomonas sensitive to amikacin, aztreonam, ceftazidime, cefepime, gentamicin, meropenem, Zosyn and tobramycin. Intermediate to ciprofloxacin and imipenem. Resistant to Levaquin. 12/15/2024 sputum with AFB verified on 01/14/25 and grew SNEHA on 03/03/25. Sensitivities 03/20/25. On 03/20/25 patient referred to [facility] with appointment scheduled for 05/02/2025. Sputum on 12/16/2024 with AFB verified on 01/20/25 and grew SNEHA on 02/01/25.?Sensitivities 03/28/25. 2024 admissions: * 05/30/2025 Rob admission shortness of breath; transferred to [place] 06/04 to 06/07; discharged on Levaquin to continue until June 18; continue SNEHA meds * 05/12/2025, ER visit, shortness of breath, home. * 04/25/25 -04/28/25; admitted Rob respiratory distress, hypoxemia, transferred to [place]; ID saw him 05/02/25; SNEHA; started Rx w azithromycin 500 mg/D, Rifabutin 300 mg/D, ethambutol 1200 mg/ day initial sputum with SNEHA was 12/16/2024 with AFB verified on 01/20/25 and grew SNEHA on 02/01/25.?Sensitivities 03/28/25. QuantiFERON gold was negative on 01/24/25. ORGANISM: MYCOBACTERIUM AVIUM COMPLEX AMIKACIN: 16 S mcg/mL AMIKACIN (LIPOSOMAL, INHALED): 16 S mcg/mL CIPROFLOXACIN: >8 mcg/mL CLARITHROMYCIN: 2 S mcg/mL CLOFAZIMINE: 0.25 mcg/mL DOXYCYCLINE: >8 mcg/mL LINEZOLID: 16 I mcg/mL MINOCYCLINE: >8 mcg/mL MOXIFLOXACIN: 4 R mcg/mL RIFABUTIN: 1 mcg/mL RIFAMPIN: >4 mcg/mL STREPTOMYCIN: >32 * This is a corrected result. * A prior result that was reported as final has been changed. 1. Mycobacterium avium complex M.I.C. RX --------- --- Rifampin AFB >4 S Streptomycin AFB R Amikacin AFB 16 S Moxifloxacin AFB R DATA: 06/29/2025: Clinical Indication: Hypoxia CT Scan of the Chest with Contrast: Technique: Contiguous sections were acquired throughout the chest after intravenous administration of 100 cc of Omnipaque 350. Dose reduction technique was used on this scan by utilizing automated exposure control and iterative reconstruction technique. The dose-length product (DLP) was 283.61 mGy-cm. COMPARISON: 06/01/2025 Findings: Multiple shotty/minimally enlarged mediastinal lymph nodes are present along the right paratracheal stripe and AP window region. There is no filling defect in the pulmonary arterial tree to suggest pulmonary embolus. There is no evidence of aortic dissection or aneurysm. No pericardial effusion. There are small bilateral pleural effusions. Bibasilar consolidation with air bronchograms is present, which could reflect atelectasis/pulmonary edema versus pneumonia. There is probable chronic scarring or interstitial change in the right middle lobe. There are patchy areas of consolidation the left upper lobe and right upper lobe, which could reflect additional or new versus pneumonia. There is mild to moderate emphysema.. Images through the upper abdomen reveal no abnormalities. Impression: No evidence of pulmonary embolus, aortic dissection, or aortic aneurysm. Patchy bilateral consolidation, suggestive of pneumonia and possible superimposed bibasilar atelectasis. There is significant worsening in the left upper lobe as compared to prior exam. Otherwise, remaining areas of airspace disease are similar to prior exam in the remainder of the lungs. Pulmonary edema not completely excluded, though felt to be somewhat less likely given the appearance and distribution of findings. Possible chronic scarring or atelectasis in the right middle lobe. Minimal pleural effusions. 05/12/25: EXAMINATION: CTA chest PE protocol DATE: 05/12/2025 14:25 INDICATION: Dyspnea. Elevated d-dimer. TECHNIQUE: Computed tomography (CT) pulmonary angiogram of the chest was performed with 100 mL Omnipaque-350 intravenous contrast. Additional 3D reconstructions utilizing coronal maximum intensity projection (MIP) were performed. Automated exposure control and iterative reconstruction technique were employed. The dose-length product was 310.42 mGy-cm. COMPARISON: 04/26/2025 FINDINGS: No pulmonary embolism. Mild emphysema. Bronchial wall thickening in the bilateral lower lobes with some frothy appearing mucous in the right bronchus intermedius and right lower lobar bronchi consistent with bronchitis. Unchanged small right pleural effusion is been some interval improvement in groundglass opacities and patchy consolidation in the right lower lobe consistent with improving pneumonia. There is unchanged region of peripheral round atelectasis in the posterior left lower lobe with associated architectural distortion and volume loss. Additional unchanged linear discoid atelectasis at the right middle lobe. Heart size is normal. Atherosclerotic coronary artery calcific location. No pericardial effusion. Thoracic aorta is normal in caliber with no dissection. Enlargement of the central pulmonary arteries consistent with pulmonary arterial hypertension. No pathologically enlarged thoracic lymphadenopathy. Moderate-sized sliding-type hiatal hernia. Multiple low-attenuation cysts scattered throughout the liver measuring up to 1.5 cm. There is also a 1.8 cm cyst at the upper pole the right kidney. Mild thoracic spondylosis with bridging osteophytes at multiple levels consistent with diffuse idiopathic skeletal hyperostosis (DISH). IMPRESSION: 1. No pulmonary embolism. 2. Decreasing consolidation in the right lower lobe consistent with improving pneumonia. 3. Unchanged small right pleural effusion. 4. Mild emphysema and enlargement of the central pulmonary arteries consistent with pulmonary arterial hypertension. 5. Moderate-sized sliding-type hiatal hernia. 04/26/2025: EXAMINATION: CTA chest PE protocol DATE: 04/26/2025 13:46 CDT INDICATION: Shortness of breath TECHNIQUE: Computed tomographic angiography (CTA) of the chest was performed with 100 mL Omnipaque-350 intravenous contrast. The dose-length product was 256.22 mGy-cm. Maximum intensity projection 3D-reconstructions of the aorta and other arteries were constructed by the technologist on a separate workstation. Automated exposure control and iterative reconstruction technique were employed. COMPARISON: Chest x-ray dated 04/25/[address] dated 11/20/2024. FINDINGS: Small right pleural effusion. Trace left pleural effusion. There is mediastinal lymphadenopathy. There is right hilar lymphadenopathy. There is atherosclerosis of the aorta and coronary arteries. Small hiatal hernia. Heart size normal. Pulmonary arteries are enlarged, consistent with pulmonary hypertension. Study is technically adequate without evidence for pulmonary embolism. There is patchy bilateral airspace disease of the right upper, right middle and bilateral lower lobes, consistent with multifocal pneumonia. No endobronchial lesions. There is emphysema. No suspicious pulmonary nodules or masses. Mild thoracic spondylosis. No focal lytic or blastic lesions. IMPRESSION: 1. Multifocal airspace disease, consistent with pneumonia. 2: Bilateral pleural effusions, right greater than left. 3: Mediastinal lymphadenopathy, likely reactive. 4.: Pulmonary artery enlargement, consistent with pulmonary hypertension. 5: Emphysema. My read: I have compared this to CT scans from 11/20/2024 and 08/29/2024 and 02/25/2024. Current CT shows no PE, , Small right pleural effusion, worsening consolidation and infiltrates in the right lower lobe compared to 11/20/2024 and 02/25/2024. Compared to CT scan on 02/25/2024 currently there are some areas of improved consolidation in the right lower lobe and some different areas with worsening consolidations in the right lower lobe. There is unchanged consolidation in the posterior left lower lobe with no change compared to 11/20/2024, 08/29/2024 and that have improved from 02/25/2024. Currently there are patchy consolidations in the right middle lobe some which were present on 11/20/2024 and some that are new. There were no infiltrates on 08/29/2024 in the right middle lobe. 01/02/25: Modified barium swallow: Impression: Moderate dysphagia 11/20/24: EXAMINATION:. Recommendations: Regular but easy to chew diet with regular liquids but patient must use chin tuck posture with all eating and drinking to prevent pharyngeal residual and instances of laryngeal penetration and aspiration. He was referral to outpatient speech therapy. 12/14/24: CRP 3.6, ESR 134, CPK 43, Aspergillus Niger IgE 0.31, very low level. Aspergillus Niger antibody negative, Aspergillus flatus antibody negative. Aspergillus fumigatus antibody negative. Rheumatoid factor 12.9, anti CCP antibody less than 16. TERRA screen positive with an anti-DNA antibody 27 (positive greater than 10), Anca screen negative, hypersensitivity pneumonitis panel negative. 01/24/2025: QuantiFERON gold negative. IgE 691 normal less than 114, rheumatoid factor 12.9. IgG 693, IgM 90, IgA 212, all normal. Aldolase 5.0 11/20/2024: CTA chest PE protocol INDICATION: Hypoxia elevated d-dimer COMPARISON: 08/29/2024 and 10/11/2021. FINDINGS: No filling defects within the main or proximal pulmonary arteries. The thoracic aorta is unremarkable. No aneurysmal dilatation or dissection. The heart is of normal size, without pericardial effusion. Panlobular emphysematous disease is identified. Patchy groundglass opacification detected bilaterally. Small bilateral pleural effusions with adjacent compressive atelectasis Multiple subcentimeter areas of decreased attenuation within the liver, unchanged dating back to 10/11/2021. IMPRESSION: No pulmonary embolus. No aneurysmal dilatation or dissection within the thoracic aorta. Small bilateral pleural effusions with adjacent compressive atelectasis. 08/16/2024: Overnight oximetry on 3 L nasal cannula. The report in the computer status overnight oximetry on room air but this is mislabeled as the test was performed on 3 L. Recording duration 8 hours and 39 minutes. Basal saturation 92.1%. High saturation 96%. Low saturation 79%. Time with saturation less than or equal to 88% was 4 minutes and 58 seconds. I will continue oxygen 3 L at night. 06/24/2024: This is a 6 minute walk test. The test was performed and interpreted in accordance with the 2014 ERS/ATS task force guidelines. Of note, patient used to wheeled walker for stability and the testing was performed on his home portable oxygen concentrator at 3 L with pulse dose. Findings: The patient's resting 3 L oxygen saturation measured by pulse oximetry was 95% and heart rate was 80 bpm. Patient ambulated for 137 meters and oxygen saturation remained 91 to 92%. Heart rate at the end of the study was 94 bpm. The patient did not have rest or exertional hypoxemia on 3 L nasal cannula pulse dose with his portable oxygen concentrator. 02/25/24 - CTA chest (ER) - No PE identified. 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 There is patchy consolidation in the right middle and bilateral lower lobes with additional regions of tree-in-bud opacity scattered throughout both lungs consistent with multifocal pneumonia. There is associated bronchial wall thickening and mucous plugging in the bilateral lower lobes. Tiny left pleural effusion. No septal line thickening to suggest pulmonary edema. No pneumothorax. Mild cardiomegaly. Atherosclerotic coronary artery calcifications. No pericardial effusion. 02/25/2024: ABG on 4 L cannula 7.39/35/63 01/15/24 - Home O2 eval - Required 2L/min O2 with ambulation and none at rest. 12/16/23 - PFT The test was performed and results interpreted in accordance with the 2019 and 2005 ATS/ERS Task Force guidelines respectively using the Global Lung Function Initiative-2012 reference equations. Patient demonstrated good effort and cooperation. Reproducibility criteria were met. The quality of the pre bronchodilator spirometry maneuver was Grade A and post bronchodilator spirometry maneuver was Grade A. Findings: Spirometry: There is decreased maximal expiratory airflow at all lung volumes with concave expiratory flow tracing. The contour the inspiratory flow tracing is normal. The pre bronchodilator FVC is 3.33 L, 82% predicted. The pre bronchodilator FEV1 is 2.02 L, 68% predicted. The pre bronchodilator FEV1: FVC ratio 61%. The post bronchodilator FVC is 3.41 L, representing a 2% increase. The post bronchodilator FEV1 is 2.09 L, representing a 3% increase. The post bronchodilator FEV1: FVC ratio 61%. Plethysmography: The total lung capacity is 6.43 L, 89% predicted. The functional residual capacity is 4.14 L, 106% predicted. The residual volume is 3.10 L, 115% predicted. The residual volume: Total lung capacity ratio is 48%. Diffusing capacity: The diffusing capacity unadjusted for hemoglobin and carboxyhemoglobin is 9.0, 37% predicted. The diffusing capacity adjusted for alveolar volume is 2.29, 64% predicted. Comparison to previous pulmonary function testing on 01/01/2022 the post bronchodilator FVC has decreased from 4.38 L to 3.41 L. The post bronchodilator FEV1 has decreased from 3.11 L to 2.09 L. the total lung capacity is decreased from 7.39 L to 6.43 L. The functional residual capacity has decreased from 4.95 L to 4.14 L. The residual volume is unchanged from 2.93 L to 3.10 L. The diffusing capacity unadjusted for hemoglobin and carboxyhemoglobin is decreased from 14.9 to 9.0. The diffusing capacity adjusted for alveolar volume decreased from 2.63 to 2.29 Impression: There is a mild obstructive abnormality. There is no significant improvement after inhaling a single dose of albuterol. The increase in residual volume to total lung volume ratio is consistent with hyperinflation from an obstructive abnormality. The diffusing capacity unadjusted for hemoglobin and carboxyhemoglobin is severely decreased and remains mildly decreased when adjusted for alveolar volume. Compared to prior pulmonary function testing on 01/01/2022 there has been a significant decrease in the FVC, FEV1, total lung capacity, functional residual capacity and diffusing capacity with no significant change in the residual volume. 09/16/23 - Home O2 eval - Required 2L/min O2 with ambulation and none at rest. 01/01/22 - Home O2 eval - Patient did not require supplemental oxygen at rest or with exertion. 01/01/22 - PFTs - Mild obstructive abnormality with normal FEV1 without significant improvement after inhaling a single dose of albuterol. Lung volumes normal. The diffusing capacity unadjusted for hemoglobin is moderately decreased and normalizes when adjusted for alveolar volume. 12/18/21 - Overnight oximetry on room air - Time with saturation less than or equal to 88% was 4.0 minutes. Patient does not qualify for supplemental oxygen at night. 10/10/2021 - ABG on 4L NC - 7.44/43/70. 10/20/21 - Chest XR - Persistent patchy bilateral airspace disease with possible improvement in the left lung, compatible with pneumonia. 10/11/2021 - CTA chest - Extensive bilateral pulmonary infiltrates and likely reactive hilar or mediastinal adenopathy. Small right pleural effusion. No evidence of pulmonary embolism. 10/11/2021 - Echo - LV systolic function mildly reduced, EF 45-50%. Grade I diastolic dysfunction. The inferior wall, inferoseptal wall, basal inferolateral wall, and mid inferolateral wall are hypokinetic. Mild LA enlargement. No pulmonary hypertension. Review of Systems Review of Systems: All systems reviewed & are unremarkable except as noted in HPI and below [facility] Past Medical History Medical History (Updated 07/29/25 @ 20:43 by Zofia Kaiser PA-C) Anxiety Physical deconditioning NSVT (nonsustained ventricular tachycardia) Dysfunction of left eustachian tube Leukocytosis Heart failure with mildly reduced ejection fraction Chronic pulmonary aspergillosis Major depressive disorder, recurrent, mild Left foot drop Chronic kidney disease, stage 3 Spinal stenosis, lumbar region without neurogenic claudication Ischemic cardiomyopathy Echocardiogram 09/2021: Mildly reduced left ventricular systolic function EF of 45-50%, grade 1 diastolic dysfunction, inferior wall inferior septal wall basal inferior wall and mid inferior lateral wall hypokinesis with mild left atrial and large SVT (supraventricular tachycardia) 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 History of tobacco use Polio (1951) Other chronic pain Aortic stenosis Mild - Echo 05/15/2022 NSTEMI (non-ST elevated myocardial infarction) (08/2019) Atherosclerotic heart disease of [place] coronary artery without angina pectoris Abdominal aortic aneurysm, without rupture Seen on CT scan on 02/09/2018 Restless legs syndrome Surgical History Surgical History History of tonsillectomy and adenoidectomy History of repair of rotator cuff bilateral History of colonoscopy with polypectomy History of bowel resection due to obstruction Presence of coronary angioplasty implant and graft History of coronary artery stent placement X2 History of mandibular surgery (1986) reconstructive surgery right mandible related to cancer Family History Family History Mother Diabetes mellitus Acute myocardial infarction Father Colon cancer COPD (chronic obstructive pulmonary disease) Sibling Colon cancer Acute myocardial infarction Lung cancer COPD (chronic obstructive pulmonary disease) Sibling COPD (chronic obstructive pulmonary disease) Sibling Congestive heart failure Sibling Dementia Social History Social History Social History: Surrogate medical decision maker: Yessi Eddie, daughter. Code status: Full code. But he states he would not want to be on a ventilator long-term have a tracheostomy or feeding tube. Smoking packs per day: 2 Smoking cigarettes per day: 40.0 Years smoked: 60 Smoking pack-years: 120.00 Smoking status: Former smoker Second hand tobacco smoke exposure: No Alcohol intake: never Substance use: never Substance use type: does not use Other substance usage details: quit alcohol in 2010 Last use: Last alcohol use 2010 Do You Feel Safe in your Home?: Yes Lack of Transportation: No Lack of Food: Never True Current Housing: I Have Housing Concerned About Future Housing: No Difficulty Paying Gas/Electric Bills: No Difficulty Paying for Meds: No Currently Unemployed: No Education: High School Diploma/GED Difficulty w/ Childcare or Family Care: No Living arrangements: with family Additional living arrangements comments: . Lives in [place] with son and [id number]. 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: retired Additional occupation/education comments: [employer] Spiritual care concerns: No Agree to blood products: Yes Meds Home Medications and Allergies Home Medications ?Medication ?Instructions ?Recorded ?Confirmed ?Type aspirin 81 mg tablet,delayed 81 mg PO DAILY #90 tabs 06/15/23 07/29/25 Rx release fenofibrate 160 mg tablet 160 mg PO DAILY #90 tabs 09/16/23 07/29/25 Rx nebulizer accessories #1 ea 04/12/24 07/29/25 Rx nebulizer and compressor #1 ea 04/12/24 07/29/25 Rx albuterol sulfate 90 mcg/actuation 2 puff inhalation Q4H PRN 10/03/24 07/29/25 Rx aerosol inhaler Shortness Of Breath Or Wheezing #8.5 grams nitroglycerin 0.4 mg sublingual 0.4 mg sublingual Q5M PRN chest 12/08/24 07/29/25 Rx tablet pain #25 tabs sulindac 200 mg tablet 200 mg PO BID #180 tabs 04/07/25 07/29/25 Rx sertraline 50 mg tablet 50 mg PO DAILY #90 tabs 04/20/25 07/29/25 Rx hydroxyzine HCl 25 mg tablet 25 mg PO QID PRN anxiety #50 tabs 05/19/25 07/29/25 Rx trazodone 100 mg tablet 100 mg PO HS Insomnia #90 tabs 05/24/25 07/29/25 Rx esomeprazole magnesium 20 mg 20 mg PO DAILY 06/15/25 07/29/25 History capsule,delayed release ethambutol 400 mg tablet 1,200 mg PO DAILY 06/15/25 07/29/25 History tamsulosin 0.4 mg capsule 0.4 mg PO BID 06/15/25 07/29/25 History rifabutin 150 mg capsule 300 mg (2 x 150 mg) PO DAILY #60 06/30/25 07/29/25 Rx caps acetylcysteine 200 mg/mL (20 %) 200 mg inhalation Q6HRT #180 mL 07/02/25 07/29/25 Rx solution baclofen 10 mg tablet 10 mg PO HS #30 tabs 07/02/25 07/29/25 Rx benzonatate 100 mg capsule 200 mg (2 x 100 mg) PO TID PRN 07/02/25 07/29/25 Rx Cough #30 caps guaifenesin 600 mg tablet, 1,200 mg (2 x 600 mg) PO Q12HR #60 07/02/25 07/29/25 Rx extended release 12 hr (Mucus tabs Relief ER) ipratropium 0.5 mg-albuterol 3 mg 3 ml inhalation Q6HRT #180 mL 07/02/25 07/29/25 Rx (2.5 mg base)/3 mL nebulization soln morphine 30 mg tablet,extended 30 mg PO Q12H PRN pain 3 days #6 07/02/25 07/29/25 Rx release tabs olopatadine 0.2 % eye drops (Eye 1 drp EACH EYE DAILY PRN itching 07/02/25 07/29/25 Rx Allergy Itch Relief) #5 mL bupropion HCl 150 mg tablet,12 hr 150 mg PO BID #180 tabs 07/03/25 07/29/25 Rx sustained-release lorazepam 0.5 mg tablet (Ativan) 0.5 mg PO DAILY PRN anxiety #14 07/23/25 07/29/25 Rx tabs azithromycin 250 mg tablet 250 mg PO DAILY 07/29/25 07/29/25 History (Zithromax) baclofen 10 mg tablet 10 mg PO Q8H PRN muscle spasm 07/29/25 07/29/25 History bisacodyl 10 mg rectal suppository 10 mg RECTAL DAILY PRN constipation 07/29/25 07/29/25 History cilcitriol capsule See Rx Instructions .Route 07/29/25 07/29/25 History .COMPLEX hypocalcemia magnesium hydroxide 400 mg/5 mL 30 ml PO HS PRN constipation 07/29/25 07/29/25 History oral suspension (Milk of Magnesia) metoprolol tartrate 50 mg tablet 50 mg PO HS 07/29/25 07/29/25 History (Lopressor) Allergies Allergy/AdvReac Type Severity Reaction Status Date / Time clonazepam AdvReac Severe Drowsy Verified 07/29/25 20:59 roflumilast (From [facility]) AdvReac Severe Diarrhea Verified 07/29/25 20:59 Vital Signs Vital Signs - 24 hr 08/01/25 12:00 08/01/25 12:00 08/01/25 12:00 Temperature 36.7 C Pulse Rate 59 L 61 Respiratory Rate 14 Blood Pressure 110/50 L Pulse Oximetry 98 98 Oxygen Delivery Nasal Cannula Oxygen Flow Rate 4 08/01/25 16:00 08/01/25 20:00 08/01/25 20:00 Temperature 36.6 C Pulse Rate 70 64 Respiratory Rate 20 Blood Pressure 106/67 Pulse Oximetry 99 95 Oxygen Delivery Nasal Cannula Oxygen Flow Rate 4 08/01/25 20:00 08/01/25 20:26 08/01/25 21:14 Temperature Pulse Rate 69 73 Respiratory Rate Blood Pressure Pulse Oximetry 96 Oxygen Delivery Nasal Cannula Oxygen Flow Rate 4 08/01/25 23:22 08/02/25 00:00 08/02/25 04:00 Temperature 36.6 C Pulse Rate 64 62 68 Respiratory Rate 20 Blood Pressure 115/46 L Pulse Oximetry 96 Oxygen Delivery Oxygen Flow Rate 08/02/25 04:00 08/02/25 07:50 08/02/25 07:50 Temperature 36.6 C Pulse Rate 63 67 Respiratory Rate 20 24 H Blood Pressure 120/47 L Pulse Oximetry 96 93 Oxygen Delivery Nasal Cannula Oxygen Flow Rate 4 08/02/25 07:57 08/02/25 08:00 08/02/25 08:00 Temperature 36.6 C Pulse Rate 60 72 69 Respiratory Rate 24 H 18 Blood Pressure 108/40 L Pulse Oximetry 98 Oxygen Delivery Oxygen Flow Rate 08/02/25 08:30 Temperature Pulse Rate Respiratory Rate Blood Pressure Pulse Oximetry 92 Oxygen Delivery Nasal Cannula Oxygen Flow Rate 4 Exam Narrative: GEN: Alert, oriented, not in distress. He is on 4 L/min nasal cannula, sat is 92% to 98%. HEENT: pupils are equal, EOMI, symmetrical face; oral membranes moist, dentures,Mallampati III airway NECK: Trachea is midline CHEST: Equal air entry, symmetric excursion, crackles in the right base, no wheezing CV: Regular S1S2 no m/g/r ABD : (+) bowel sounds Extremities : no clubbing, cyanosis, or edema. He has dried excoriated skin over the front of his lower legs. PSYCH: normal thought and speech, gait is not tested. Results Laboratory Findings 08/02/25 04:44 08/02/25 04:44 Abnormal lab findings: Abnormal Labs 07/29/25 07/30/25 07/30/25 16:13 04:29 20:14 WBC 19.9 H 17.5 H RBC 3.59 L 3.56 L Hgb 10.0 L 9.9 L Hct 31.7 L 32.3 L MCHC 31.5 L 30.7 L RDW 16.0 H 16.1 H MPV 11.1 H 10.9 H Immature Gran % (Auto) 0.7 H 0.8 H Neut % (Auto) 91.0 H 86.8 H Lymph % (Auto) 2.1 L 7.1 L Baso % (Auto) 0.1 L Lymph # (Auto) 0.41 L [place] # (Auto) 1.2 H 0.9 H Abs Immat Gran (auto) 0.14 H 0.14 H Absolute Neuts (auto) 18.1 H 15.2 H ESR Sodium 128 L 132 L Chloride 96 L 96 L BUN Creatinine Estimated GFR Glucose POC Capillary Glucose 109 H Calcium C-Reactive Protein NT-Pro-B Natriuret Pep 2480 H Albumin 3.4 L Urine Protein Urine Ketones Leukocyte Esterase Rfl Urine RBC 08/01/25 08/01/25 08/02/25 01:02 08:22 04:44 WBC 13.4 H RBC 3.13 L 2.68 L Hgb 8.8 L 7.3 L Hct 28.4 L 24.2 L MCHC 31.0 L 30.2 L RDW 16.4 H 16.5 H MPV 11.9 H 12.1 H Immature Gran % (Auto) 0.9 H Neut % (Auto) 92.1 H 83.2 H Lymph % (Auto) 2.0 L 7.6 L Baso % (Auto) 0.1 L 0.1 L Lymph # (Auto) 0.27 L 0.56 L [place] # (Auto) Abs Immat Gran (auto) 0.12 H 0.04 H Absolute Neuts (auto) 12.3 H ESR > 140 H Sodium 129 L 130 L Chloride 94 L BUN 28 H D 32 H Creatinine 1.34 H Estimated GFR 51 L Glucose 161 H 115 H POC Capillary Glucose Calcium 7.9 L C-Reactive Protein 29.2 H NT-Pro-B Natriuret Pep Albumin 3.1 L Urine Protein 1+ H Urine Ketones Trace H Leukocyte Esterase Rfl Trace H Urine RBC 3-5 H
[2025-08-02] MEDS: BISACODYL 10 MG SUPPOSITORY RECTAL (13:09)
--- NOTE | 2025-08-02 18:48 | P.PNIM_ITS ---
Progress Note: A&P Assessment and Plan (1) Combined systolic and diastolic congestive heart failure: Qualifiers: Heart failure chronicity: acute on chronic Qualified Code(s): I50.43 - Acute on chronic combined systolic (congestive) and diastolic (congestive) heart failure Code(s): I50.40 - Unspecified combined systolic (congestive) and diastolic (congestive) heart failure Status: Acute (2) Constipation: Code(s): K59.00 - Constipation, unspecified Status: Inactive (3) SNEHA (mycobacterium avium-intracellulare): Code(s): A31.0 - Pulmonary mycobacterial infection Status: Acute (4) Pneumonia: Qualifiers: Pneumonia type: due to unspecified organism Laterality: right Lung location: unspecified part of lung Qualified Code(s): J18.9 - Pneumonia, unspecified organism Code(s): J18.9 - Pneumonia, unspecified organism Status: Acute Plan Leukocytosis improving, continue to trend. Cefepime changed to ciprofloxacin on 08/02/2025 to end on 08/04/2025. Continue SNEHA treatment. Appreciate Infectious Disease and pulmonology recommendations. Follow-up blood cultures. Checking an EKG to assess QTC interval. Currently at baseline 4 L. continue to appreciate Nephrology recommendations. Mild SANDI improved after fluid resuscitation. He has had poor intake. Probably due to the severe constipation. He received bisacodyl suppository, MiraLax and had a large bowel movement on 08/02/2025 after not having it for 7 days. Continue Senokot S 1 tab p.o. b.i.d.. Stay diligent about opioid use. En courage ambulation. Hemoglobin dropping slightly. Check hemoglobin again now at 7:00 p.m.. Hold Lovenox. Patient wishes to be DNR. Subjective Date/time seen: 08/02/25 18:48 Interval history: Patient became slightly short of breath. Overnight fluids were stopped. He received a breathing treatment and reported feeling better. He still had that right upper quadrant pain on deep inspiration but after having a large bowel movement after laxatives he felt much better. Review of Systems Review of Systems: All systems reviewed & are unremarkable except as noted in HPI and below (Subjective) Exam Const: General: comfortable and no acute distress Eyes: Pupils: Equal, round and reactive pupils present Neck: Neck: supple Resp: Effort & Inspection: normal respiratory effort Other: Coarse breath sounds Cardio: Rate: regular rate Rhythm: regular rhythm GI: Inspection: distended GI Palp: Yes Soft to palpation and No Tenderness to palpation present (GI) Extrem: General: no edema Objective Data Vital Signs Vital Signs: Vital Signs - 24 hr 08/01/25 20:00 08/01/25 20:00 08/01/25 20:00 Temperature 97.9 F Pulse Rate 64 69 Respiratory Rate 20 Blood Pressure 106/67 Pulse Oximetry 99 95 Oxygen Delivery Nasal Cannula Oxygen Flow Rate 4 08/01/25 20:26 08/01/25 21:14 08/01/25 23:22 Temperature 97.9 F Pulse Rate 73 64 Respiratory Rate 20 Blood Pressure 115/46 L Pulse Oximetry 96 96 Oxygen Delivery Nasal Cannula Oxygen Flow Rate 4 08/02/25 00:00 08/02/25 04:00 08/02/25 04:00 Temperature 97.8 F Pulse Rate 62 68 63 Respiratory Rate 20 Blood Pressure 120/47 L Pulse Oximetry 96 Oxygen Delivery Oxygen Flow Rate 08/02/25 07:50 08/02/25 07:50 08/02/25 07:57 Temperature Pulse Rate 67 60 Respiratory Rate 24 H 24 H Blood Pressure Pulse Oximetry 93 Oxygen Delivery Nasal Cannula Oxygen Flow Rate 4 08/02/25 08:00 08/02/25 08:00 08/02/25 08:30 Temperature 97.9 F Pulse Rate 72 69 Respiratory Rate 18 Blood Pressure 108/40 L Pulse Oximetry 98 92 Oxygen Delivery Nasal Cannula Oxygen Flow Rate 4 08/02/25 11:53 08/02/25 12:00 08/02/25 13:58 Temperature 98.3 F Pulse Rate 120 H 66 Respiratory Rate 20 Blood Pressure 120/49 L Pulse Oximetry 95 Oxygen Delivery Nasal Cannula Oxygen Flow Rate 4 08/02/25 15:58 08/02/25 16:00 Temperature 97.5 F L Pulse Rate 65 67 Respiratory Rate 18 Blood Pressure 104/45 L Pulse Oximetry 100 Oxygen Delivery Oxygen Flow Rate Intake/Output Intake/Output: Intake & Output 07/30/25 07/31/25 08/01/25 08/02/25 23:59 23:59 23:59 23:59 Intake Total 920 1600 2460 3300 Output Total 935 052 919 4519 Balance -15 693 7230 1629 Meds/Results Medications: Active Medications Generic Name Dose Route Start Last Admin Trade Name Freq PRN Reason Stop Dose Admin Acetaminophen 650 mg 07/29/25 19:46 Acetaminophen 325 Mg Tablet PO Q4H PRN Mild Pain (1-3) or Fever Hydrocodone Bitart/Acetaminophen 1 tab 07/30/25 12:51 08/01/25 20:26 Hydrocodone/Acetaminophen (*Crx) 5-325 Mg Tablet PO 1 tab Q6H PRN Administration Pain Rated 4-6 Albuterol/Ipratropium 3 ml 07/30/25 05:49 08/02/25 07:49 Ipratropium 0.5 Mg/Albuterol Sulfate 2.5 Mg Ampul.Neb 3 Ml INHALATION 3 ml Q4H PRN Administration Dyspnea Aspirin 81 mg 07/30/25 09:00 08/02/25 08:20 Aspirin 81 Mg Enteric Tablet PO 81 mg DAILY GIOVANNY Administration Azithromycin 250 mg 07/30/25 09:00 08/02/25 08:21 Azithromycin 250 Mg Tablet PO 250 mg DAILY GIOVANNY Administration Baclofen 10 mg 07/30/25 21:00 08/01/25 20:26 Baclofen 10 Mg Tablet PO 10 mg HS GIOVANNY Administration Baclofen 10 mg 07/29/25 22:33 Baclofen 10 Mg Tablet PO Q8H PRN Muscle Spasm Benzonatate 200 mg 07/29/25 21:19 Benzonatate 100 Mg Capsule PO TID PRN Cough Bisacodyl 10 mg 08/01/25 18:16 08/02/25 13:09 Bisacodyl 10 Mg Suppository RECTAL 10 mg DAILY PRN Administration Constipation Bupropion HCl 150 mg 07/30/25 09:00 08/02/25 08:21 Bupropion Hcl Sr (12 Hr) 150 Mg Tab PO 150 mg Q12HR GIOVANNY Administration Calcium Carbonate 200 mg 07/29/25 22:33 Calcium Carbonate (Tums) 500 Mg (200 Mg Elemental) PO Q6H PRN Indigestion Ciprofloxacin 750 mg 08/02/25 09:00 08/02/25 08:20 Ciprofloxacin 250 Mg Tablet PO 08/04/25 21:01 750 mg Q12HR GIOVANNY Administration Enoxaparin Sodium 40 mg 07/30/25 09:00 08/02/25 08:27 Enoxaparin 40 Mg/0.4 Ml Syringe SUB-Q 40 mg On Hold: 08/02/25 18:47 DAILY GIOVANNY Administration Ethambutol HCl 1,200 mg 07/30/25 09:00 08/02/25 08:20 Ethambutol Hcl 400 Mg Tablet PO 1,200 mg DAILY GIOVANNY Administration Fenofibrate 145 mg 07/30/25 09:00 08/02/25 08:21 Fenofibrate Nanocrystallized 145 Mg Tablet PO 145 mg QAM GIOVANNY Administration Guaifenesin 1,200 mg 07/30/25 09:00 08/02/25 08:19 Guaifenesin 12 Hr 600 Mg Tabcr PO 1,200 mg Q12HR GIOVANNY Administration Lorazepam 0.5 mg 07/29/25 21:19 08/02/25 08:20 Lorazepam (*Crx) 0.5 Mg Tablet PO 0.5 mg DAILY PRN Administration Anxiety Metoprolol Tartrate 50 mg 07/30/25 21:00 08/01/25 20:26 Metoprolol Tartrate 50 Mg Tab PO 50 mg HS GIOVANNY Administration Morphine Sulfate 30 mg 07/29/25 22:33 08/02/25 08:20 Morphine Sulfate (*Crx) 30 Mg Tabcr PO 30 mg Q12H PRN Administration Pain 7-10 Nitroglycerin 0.4 mg 07/29/25 22:33 Nitroglycerin Sl 0.4 Mg Tablet SUBLINGUAL Q5M PRN Chest Pain Rifabutin 150 Mg 300 mg 07/30/25 16:00 08/02/25 08:22 Capsule Home Med PO 08/29/25 15:59 300 mg DAILY GIOVANNY Administration Sulindac 200 Mg 200 mg 07/30/25 17:00 08/02/25 17:06 Tablet Home Med PO 08/29/25 16:59 200 mg BID GIOVANNY Administration Pantoprazole Sodium 40 mg 07/30/25 09:00 08/02/25 08:21 Pantoprazole 40 Mg Tablet PO 40 mg QAM GIOVANNY Administration Senna/Docusate Sodium 1 tab 08/02/25 09:00 08/02/25 17:01 Senna/Docusate Sodium Tablet PO 1 tab BID GIOVANNY Administration Sertraline HCl 50 mg 07/30/25 09:00 08/02/25 08:21 Sertraline Hcl 50 Mg Tablet PO 50 mg DAILY GIOVANNY Administration Tamsulosin HCl 0.4 mg 07/30/25 09:00 08/02/25 17:01 Tamsulosin Hcl 0.4 Mg Capsule PO 0.4 mg BID GIOVANNY Administration Trazodone HCl 100 mg 07/30/25 21:00 08/01/25 20:26 Trazodone Hcl 50 Mg Tablet PO 100 mg HS GIOVANNY Administration Radiology Results: ITS Impressions Chest CTA 07/29/25 18:25 IMPRESSION: 1. No pulmonary embolism. Sensitivity decreased in some of the smaller subsegmental pulmonary arteries particularly at the lung bases due to some respiratory motion. 2. Emphysema with interval improvement in patchy pneumonia in the right middle and bilateral upper and lower lobes. 3. Chronic likely small right pleural effusion. 4. Pleural thickening the bilateral lung bases with regions of peripheral round atelectasis and pleural parenchymal scarring at the bilateral lower lobes. 5. Cardiomegaly. 6. Small sliding-type hiatal hernia. 7. Hepatosplenomegaly. 8. Ectatic infrarenal abdominal aorta measuring up to 3.7 cm. Abdomen/Pelvis CT 07/30/25 10:18 IMPRESSION: 1. No acute intra-abdominal process. 2. Aortic aneurysm outpatient CTA recommended 3. Incidental findings above Chest X-Ray 07/30/25 11:28 Impression: Right lower lobe pneumonia Abdomen X-Ray 08/02/25 11:28 IMPRESSION: 1. Nonspecific abdomen with a moderate to large amount of stool. If symptoms persist or worsen, consider a CT of the abdomen and pelvis for further assessment. 2. Small opacities in the lower lungs. 3. Possible small right-sided pleural effusion. Labs Labs: Laboratory Results - last 24 hr 08/02/25 04:44 WBC 7.4 RBC 2.68 L Hgb 7.3 L Hct 24.2 L MCV 90.3 MCH 27.2 MCHC 30.2 L RDW 16.5 H Plt Count 160 MPV 12.1 H Immature Gran % (Auto) 0.5 Neut % (Auto) 83.2 H Lymph % (Auto) 7.6 L [place] % (Auto) 8.1 Eos % (Auto) 0.5 Baso % (Auto) 0.1 L Lymph # (Auto) 0.56 L [place] # (Auto) 0.6 Eos # (Auto) 0.0 Baso # (Auto) 0.0 Abs Immat Gran (auto) 0.04 H Absolute Neuts (auto) 6.1 Absolute Nucleated RBC 0.000 Nucleated RBC % 0.0 Sodium 130 L Potassium 4.1 Chloride 98 Carbon Dioxide 27 Anion Gap 5 BUN 32 H Creatinine 1.16 Estim Creat Clear Calc 46 Estimated GFR 60 Glucose 115 H Calcium 7.9 L Magnesium 2.1
--- NOTE | 2025-08-02 19:10 | WPDINFPN2 ---
Progress Note: A&P Assessment and Plan (1) Pneumonia: Qualifiers: Laterality: bilateral Lung location: unspecified part of lung Pneumonia type: due to unspecified organism Qualified Code(s): J18.9 - Pneumonia, unspecified organism Code(s): J18.9 - Pneumonia, unspecified organism Status: Acute (2) COPD (chronic obstructive pulmonary disease): Code(s): J44.9 - Chronic obstructive pulmonary disease, unspecified Status: Acute (3) SANDI (acute kidney injury): Code(s): N17.9 - Acute kidney failure, unspecified Status: Acute (4) Mycobacterium avium complex colonization: Code(s): Z22.39 - Carrier of other specified bacterial diseases Status: Acute Plan 1 pneumonia 2. SNEHA on ethambutol, azithro and rifabutin 3. COPD on 4L o2 [place] at baseline 4. SANDI--creatinine down RECOMMENDATIONS: -high dose cipro (750 mg po bid) starting today for 2 more days -continue SNEHA treatment for at least 12-18 months-->can follow up in ID clinic via telehealth with Dr. Keith Jolly -blood cxs NGTD -[id number]=[phone] d/w pharmacy staff Patient was seen via video telehealth consultation with the assistance of staff. Chart, data and patient independently reviewed. Patient was located at [facility] while I was located in my [place] office. Received verbal consent from patient. Subjective Date/time seen: 08/02/25 19:10 Interval history: +SOB poor appetite no fevers +productive cough Exam Narrative: up in chair, NAD, on 4L o2 NC cachectic Objective Data Vital Signs Vital Signs: Vital Signs - 24 hr 08/01/25 20:00 08/01/25 20:00 08/01/25 20:00 Temperature 97.9 F Pulse Rate 64 69 Respiratory Rate 20 Blood Pressure 106/67 Pulse Oximetry 99 95 Oxygen Delivery Nasal Cannula Oxygen Flow Rate 4 08/01/25 20:26 08/01/25 21:14 08/01/25 23:22 Temperature 97.9 F Pulse Rate 73 64 Respiratory Rate 20 Blood Pressure 115/46 L Pulse Oximetry 96 96 Oxygen Delivery Nasal Cannula Oxygen Flow Rate 4 08/02/25 00:00 08/02/25 04:00 08/02/25 04:00 Temperature 97.8 F Pulse Rate 62 68 63 Respiratory Rate 20 Blood Pressure 120/47 L Pulse Oximetry 96 Oxygen Delivery Oxygen Flow Rate 08/02/25 07:50 08/02/25 07:50 08/02/25 07:57 Temperature Pulse Rate 67 60 Respiratory Rate 24 H 24 H Blood Pressure Pulse Oximetry 93 Oxygen Delivery Nasal Cannula Oxygen Flow Rate 4 08/02/25 08:00 08/02/25 08:00 08/02/25 08:30 Temperature 97.9 F Pulse Rate 72 69 Respiratory Rate 18 Blood Pressure 108/40 L Pulse Oximetry 98 92 Oxygen Delivery Nasal Cannula Oxygen Flow Rate 4 08/02/25 11:53 08/02/25 12:00 08/02/25 13:58 Temperature 98.3 F Pulse Rate 120 H 66 Respiratory Rate 20 Blood Pressure 120/49 L Pulse Oximetry 95 Oxygen Delivery Nasal Cannula Oxygen Flow Rate 4 08/02/25 15:58 08/02/25 16:00 Temperature 97.5 F L Pulse Rate 65 67 Respiratory Rate 18 Blood Pressure 104/45 L Pulse Oximetry 100 Oxygen Delivery Oxygen Flow Rate Intake/Output Intake/Output: Intake & Output 07/30/25 07/31/25 08/01/25 08/02/25 23:59 23:59 23:59 23:59 Intake Total 920 1600 2460 3300 Output Total 935 158 831 9660 Balance -15 650 1585 1625 Meds/Results Medications: Active Medications Generic Name Dose Route Start Last Admin Trade Name Freq PRN Reason Stop Dose Admin Acetaminophen 650 mg 07/29/25 19:46 Acetaminophen 325 Mg Tablet PO Q4H PRN Mild Pain (1-3) or Fever Hydrocodone Bitart/Acetaminophen 1 tab 07/30/25 12:51 08/01/25 20:26 Hydrocodone/Acetaminophen (*Crx) 5-325 Mg Tablet PO 1 tab Q6H PRN Administration Pain Rated 4-6 Albuterol/Ipratropium 3 ml 07/30/25 05:49 08/02/25 07:49 Ipratropium 0.5 Mg/Albuterol Sulfate 2.5 Mg Ampul.Neb 3 Ml INHALATION 3 ml Q4H PRN Administration Dyspnea Aspirin 81 mg 07/30/25 09:00 08/02/25 08:20 Aspirin 81 Mg Enteric Tablet PO 81 mg DAILY GIOVANNY Administration Azithromycin 250 mg 07/30/25 09:00 08/02/25 08:21 Azithromycin 250 Mg Tablet PO 250 mg DAILY GIOVANNY Administration Baclofen 10 mg 07/30/25 21:00 08/01/25 20:26 Baclofen 10 Mg Tablet PO 10 mg HS GIOVANNY Administration Baclofen 10 mg 07/29/25 22:33 Baclofen 10 Mg Tablet PO Q8H PRN Muscle Spasm Benzonatate 200 mg 07/29/25 21:19 Benzonatate 100 Mg Capsule PO TID PRN Cough Bisacodyl 10 mg 08/01/25 18:16 08/02/25 13:09 Bisacodyl 10 Mg Suppository RECTAL 10 mg DAILY PRN Administration Constipation Bupropion HCl 150 mg 07/30/25 09:00 08/02/25 08:21 Bupropion Hcl Sr (12 Hr) 150 Mg Tab PO 150 mg Q12HR GIOVANNY Administration Calcium Carbonate 200 mg 07/29/25 22:33 Calcium Carbonate (Tums) 500 Mg (200 Mg Elemental) PO Q6H PRN Indigestion Ciprofloxacin 750 mg 08/02/25 09:00 08/02/25 08:20 Ciprofloxacin 250 Mg Tablet PO 08/04/25 21:01 750 mg Q12HR GIOVANNY Administration Enoxaparin Sodium 40 mg 07/30/25 09:00 08/02/25 08:27 Enoxaparin 40 Mg/0.4 Ml Syringe SUB-Q 40 mg On Hold: 08/02/25 18:47 DAILY GIOVANNY Administration Ethambutol HCl 1,200 mg 07/30/25 09:00 08/02/25 08:20 Ethambutol Hcl 400 Mg Tablet PO 1,200 mg DAILY GIOVANNY Administration Fenofibrate 145 mg 07/30/25 09:00 08/02/25 08:21 Fenofibrate Nanocrystallized 145 Mg Tablet PO 145 mg QAM GIOVANNY Administration Guaifenesin 1,200 mg 07/30/25 09:00 08/02/25 08:19 Guaifenesin 12 Hr 600 Mg Tabcr PO 1,200 mg Q12HR GIOVANNY Administration Lorazepam 0.5 mg 07/29/25 21:19 08/02/25 08:20 Lorazepam (*Crx) 0.5 Mg Tablet PO 0.5 mg DAILY PRN Administration Anxiety Metoprolol Tartrate 50 mg 07/30/25 21:00 08/01/25 20:26 Metoprolol Tartrate 50 Mg Tab PO 50 mg HS GIOVANNY Administration Morphine Sulfate 30 mg 07/29/25 22:33 08/02/25 08:20 Morphine Sulfate (*Crx) 30 Mg Tabcr PO 30 mg Q12H PRN Administration Pain 7-10 Nitroglycerin 0.4 mg 07/29/25 22:33 Nitroglycerin Sl 0.4 Mg Tablet SUBLINGUAL Q5M PRN Chest Pain Rifabutin 150 Mg 300 mg 07/30/25 16:00 08/02/25 08:22 Capsule Home Med PO 08/29/25 15:59 300 mg DAILY GIOVANNY Administration Sulindac 200 Mg 200 mg 07/30/25 17:00 08/02/25 17:06 Tablet Home Med PO 08/29/25 16:59 200 mg BID GIOVANNY Administration Pantoprazole Sodium 40 mg 07/30/25 09:00 08/02/25 08:21 Pantoprazole 40 Mg Tablet PO 40 mg QAM GIOVANNY Administration Senna/Docusate Sodium 1 tab 08/02/25 09:00 08/02/25 17:01 Senna/Docusate Sodium Tablet PO 1 tab BID GIOVANNY Administration Sertraline HCl 50 mg 07/30/25 09:00 08/02/25 08:21 Sertraline Hcl 50 Mg Tablet PO 50 mg DAILY GIOVANNY Administration Tamsulosin HCl 0.4 mg 07/30/25 09:00 08/02/25 17:01 Tamsulosin Hcl 0.4 Mg Capsule PO 0.4 mg BID GIOVANNY Administration Trazodone HCl 100 mg 07/30/25 21:00 08/01/25 20:26 Trazodone Hcl 50 Mg Tablet PO 100 mg HS GIOVANNY Administration Radiology Results: ITS Impressions Chest CTA 07/29/25 18:25 IMPRESSION: 1. No pulmonary embolism. Sensitivity decreased in some of the smaller subsegmental pulmonary arteries particularly at the lung bases due to some respiratory motion. 2. Emphysema with interval improvement in patchy pneumonia in the right middle and bilateral upper and lower lobes. 3. Chronic likely small right pleural effusion. 4. Pleural thickening the bilateral lung bases with regions of peripheral round atelectasis and pleural parenchymal scarring at the bilateral lower lobes. 5. Cardiomegaly. 6. Small sliding-type hiatal hernia. 7. Hepatosplenomegaly. 8. Ectatic infrarenal abdominal aorta measuring up to 3.7 cm. Abdomen/Pelvis CT 07/30/25 10:18 IMPRESSION: 1. No acute intra-abdominal process. 2. Aortic aneurysm outpatient CTA recommended 3. Incidental findings above Chest X-Ray 07/30/25 11:28 Impression: Right lower lobe pneumonia Abdomen X-Ray 08/02/25 11:28 IMPRESSION: 1. Nonspecific abdomen with a moderate to large amount of stool. If symptoms persist or worsen, consider a CT of the abdomen and pelvis for further assessment. 2. Small opacities in the lower lungs. 3. Possible small right-sided pleural effusion. Labs Labs: Laboratory Results - last 24 hr 08/02/25 04:44 WBC 7.4 RBC 2.68 L Hgb 7.3 L Hct 24.2 L MCV 90.3 MCH 27.2 MCHC 30.2 L RDW 16.5 H Plt Count 160 MPV 12.1 H Immature Gran % (Auto) 0.5 Neut % (Auto) 83.2 H Lymph % (Auto) 7.6 L [place] % (Auto) 8.1 Eos % (Auto) 0.5 Baso % (Auto) 0.1 L Lymph # (Auto) 0.56 L [place] # (Auto) 0.6 Eos # (Auto) 0.0 Baso # (Auto) 0.0 Abs Immat Gran (auto) 0.04 H Absolute Neuts (auto) 6.1 Absolute Nucleated RBC 0.000 Nucleated RBC % 0.0 Sodium 130 L Potassium 4.1 Chloride 98 Carbon Dioxide 27 Anion Gap 5 BUN 32 H Creatinine 1.16 Estim Creat Clear Calc 46 Estimated GFR 60 Glucose 115 H Calcium 7.9 L Magnesium 2.1
[2025-08-02] MEDS: HYDROcodone/acetaminophen (*CRX) 5-325 MG TABLET 1 TAB PO (20:12)
[2025-08-02] MEDS: BACLOFEN 10 MG TABLET PO (20:12)
[2025-08-02] MEDS: METOPROLOL TARTRATE 50 MG TAB PO (20:13)
[2025-08-02] MEDS: BENZONATATE 100 MG CAPSULE 200 MG PO (20:22)
[2025-08-02 20:35] LABS: Hematocrit 26.5 % (42.0-52.0); Hemoglobin 7.8 g/dL (14.0-18.0)
[2025-08-03] VITALS (9 sets, daily range): BP systolic 99–132; BP diastolic 48–58; PULSE 56–75; RESP 18–21; TEMP 36.4; O2SAT 99–100
--- NOTE | 2025-08-03 | ECG_ITS ---
Test Date: 2025-08-03 13:02:19 Measurements Intervals [place] Rate: 69 P: 118 MS: 207 QRS: 189 QRSD: 116 T: 171 QT: 406 QTc: 436 Interpretive Statements SINUS RHYTHM ARM LEADS REVERSED [INVERTED P AND QRS IN I] INCOMPLETE RIGHT BUNDLE BRANCH BLOCK WITH REPOLARIZATION CHANGES; CAN NOT RULE OUT ISCHEMIA Compared to ECG 07/29/2025 17:23:57 Electronically Signed On 08-03-2025 13:28:58 CDT by Bert Earl M.D.
[2025-08-03 04:53] LABS: Hematocrit 25.8 % (42.0-52.0); Hemoglobin 7.8 g/dL (14.0-18.0); Immature Granulocyte Percent A 0.8 % (0-0.5); Lymphocytes Absolute Auto 0.60 K/mm3 (0.9-3.2); Mean Corpuscular HGB Conc 30.2 g/dl (32-36); Mean Corpuscular Hemoglobin 27.7 pg (26-34); Mean Corpuscular Volume 91.5 fl (80-100); Nucleated Red Blood Cells Absolute Auto 0.000 K/mm3 (0.0-0.012); Nucleated Red Blood Cells Perc 0.0 % (0.0-0.2); Platelet Count Result 187 k/mm3 (150-375); Red Blood Count 2.82 M/mm3 (4.6-6.20); White Blood Count 6.2 K/mm3 (4.5-10.0)
[2025-08-03 05:20] LABS: Anion Gap 4 mmol/L (4-12); Blood Urea Nitrogen 31 mg/dL (9-20); Calcium 8.3 mg/dL (8.4-10.2); Carbon Dioxide 28 mmol/L (22-30); Chloride 100 mmol/L (98-107); Estimated CRCL calculation 52 ml/min; Estimated Glomerular Filt Rate > 60; Glucose 94 mg/dL (65-110); Magnesium 2.1 mg/dL (1.6-2.3); Potassium 4.9 mmol/L (3.4-5.0); Sodium 132 mmol/L (137-145)
[2025-08-03] MEDS: ETHAMBUTOL HCL 400 MG TABLET 1200 MG PO (08:14)
[2025-08-03] MEDS: CIPROFLOXACIN 250 MG TABLET 750 MG PO (08:14)
[2025-08-03] MEDS: TAMSULOSIN HCL 0.4 MG CAPSULE PO ×2 (08:14→17:08)
[2025-08-03] MEDS: buPROPion HCL SR (12 HR) 150 MG TAB PO (08:15)
[2025-08-03] MEDS: FENOFIBRATE NANOCRYSTALLIZED 145 MG TABLET PO (08:15)
[2025-08-03] MEDS: AZITHROMYCIN 250 MG TABLET PO (08:15)
[2025-08-03] MEDS: PANTOPRAZOLE 40 MG TABLET PO (08:15)
[2025-08-03] MEDS: LORazepam (*CRX) 0.5 MG TABLET PO (08:15)
[2025-08-03] MEDS: ASPIRIN 81 MG ENTERIC TABLET PO (08:15)
[2025-08-03] MEDS: MORPHINE SULFATE (*CRX) 30 MG TABCR PO (08:15)
[2025-08-03] MEDS: SERTRALINE HCL 50 MG TABLET PO (08:15)
[2025-08-03] MEDS: guaiFENesin 12 HR 600 MG TABCR 1200 MG PO (08:15)
[2025-08-03] MEDS: SENNA/DOCUSATE SODIUM TABLET 1 TAB PO ×2 (08:16→17:08)
[2025-08-03] MEDS: RIFABUTIN 150 MG 300 EACH PO (08:17)
[2025-08-03] MEDS: SULINDAC 200 MG 200 EACH PO ×2 (08:17→17:08)
[2025-08-03] MEDS: IPRATROPIUM 0.5 MG/ALBUTEROL SULFATE 2.5 MG AMPUL.NEB 3 ML INHALATION (09:42)
--- NOTE | 2025-08-03 14:15 | P.PNINF_ITS ---
Progress Note: A&P Assessment and Plan (1) Pneumonia: Qualifiers: Laterality: bilateral Lung location: unspecified part of lung Pneumonia type: due to unspecified organism Qualified Code(s): J18.9 - Pneumonia, unspecified organism Code(s): J18.9 - Pneumonia, unspecified organism Status: Acute (2) COPD (chronic obstructive pulmonary disease): Code(s): J44.9 - Chronic obstructive pulmonary disease, unspecified Status: Acute (3) SANDI (acute kidney injury): Code(s): N17.9 - Acute kidney failure, unspecified Status: Acute (4) Mycobacterium avium complex colonization: Code(s): Z22.39 - Carrier of other specified bacterial diseases Status: Acute Plan ASSESSMENT: 1 pneumonia 2. SNEHA on ethambutol, azithro and rifabutin 3. COPD on 4L o2 [place] at baseline 4. SANDI--resolved RECOMMENDATIONS: -high dose cipro (750 mg po bid) -check follow up CXR-->ordered -continue SNEHA treatment for at least 12-18 months-->can follow up in ID clinic via telehealth with Dr. Keith Jolly -blood cxs NGTD -[id number] d/w pharmacy staff Patient was seen via video telehealth consultation with the assistance of staff. Chart, data and patient independently reviewed. Patient was located at [facility] while I was located in my [place] office. Received verbal consent from patient. Subjective Date/time seen: 08/03/25 14:15 Interval history: no sob at rest +cough had breathing treatment this am pleuritc CP better poor appetite early satiety Exam Narrative: on 4L o2 [place] +hiccups NAD, non-toxic Objective Data Vital Signs Vital Signs: Vital Signs - 24 hr 08/02/25 15:58 08/02/25 16:00 08/02/25 20:00 Temperature 97.5 F L Pulse Rate 65 67 Respiratory Rate 18 Blood Pressure 104/45 L Pulse Oximetry 100 100 Oxygen Delivery Nasal Cannula Oxygen Flow Rate 4 08/02/25 20:00 08/02/25 20:00 08/02/25 20:13 Temperature 97.7 F Pulse Rate 129 H 68 66 Respiratory Rate 18 Blood Pressure 125/58 L Pulse Oximetry 97 Oxygen Delivery Oxygen Flow Rate 08/02/25 20:37 08/02/25 20:40 08/02/25 20:48 Temperature Pulse Rate 64 66 Respiratory Rate 22 H 22 H Blood Pressure Pulse Oximetry 94 Oxygen Delivery Nasal Cannula Oxygen Flow Rate 4 08/03/25 00:00 08/03/25 00:00 08/03/25 04:00 Temperature 97.6 F Pulse Rate 64 63 56 L Respiratory Rate 18 Blood Pressure 128/48 L Pulse Oximetry 100 Oxygen Delivery Oxygen Flow Rate 08/03/25 04:00 08/03/25 08:00 08/03/25 08:00 Temperature 97.6 F 97.6 F Pulse Rate 65 61 58 L Respiratory Rate 18 18 Blood Pressure 132/48 L 124/58 L Pulse Oximetry 99 100 Oxygen Delivery Oxygen Flow Rate 08/03/25 08:20 08/03/25 08:47 08/03/25 08:53 Temperature Pulse Rate 75 72 Respiratory Rate 21 H 21 H Blood Pressure Pulse Oximetry 99 Oxygen Delivery Nasal Cannula Oxygen Flow Rate 4 08/03/25 11:53 08/03/25 12:00 Temperature 97.6 F Pulse Rate 60 62 Respiratory Rate 20 Blood Pressure 99/50 L Pulse Oximetry Oxygen Delivery Oxygen Flow Rate Intake/Output Intake/Output: Intake & Output 07/31/25 08/01/25 08/02/25 08/03/25 23:59 23:59 23:59 23:59 Intake Total 1600 2460 3300 480 Output Total 038 524 6283 1250 Balance 650 1585 1425 -677 Meds/Results Medications: Active Medications Generic Name Dose Route Start Last Admin Trade Name Freq PRN Reason Stop Dose Admin Acetaminophen 650 mg 07/29/25 19:46 Acetaminophen 325 Mg Tablet PO Q4H PRN Mild Pain (1-3) or Fever Hydrocodone Bitart/Acetaminophen 1 tab 07/30/25 12:51 08/02/25 20:12 Hydrocodone/Acetaminophen (*Crx) 5-325 Mg Tablet PO 1 tab Q6H PRN Administration Pain Rated 4-6 Albuterol/Ipratropium 3 ml 07/30/25 05:49 08/03/25 09:42 Ipratropium 0.5 Mg/Albuterol Sulfate 2.5 Mg Ampul.Neb 3 Ml INHALATION 3 ml Q4H PRN Administration Dyspnea Aspirin 81 mg 07/30/25 09:00 08/03/25 08:15 Aspirin 81 Mg Enteric Tablet PO 81 mg DAILY GIOVANNY Administration Azithromycin 250 mg 07/30/25 09:00 08/03/25 08:15 Azithromycin 250 Mg Tablet PO 250 mg DAILY GIOVANNY Administration Baclofen 10 mg 07/30/25 21:00 08/02/25 20:12 Baclofen 10 Mg Tablet PO 10 mg HS GIOVANNY Administration Baclofen 10 mg 07/29/25 22:33 Baclofen 10 Mg Tablet PO Q8H PRN Muscle Spasm Benzonatate 200 mg 07/29/25 21:19 08/02/25 20:22 Benzonatate 100 Mg Capsule PO 200 mg TID PRN Administration Cough Bisacodyl 10 mg 08/01/25 18:16 08/02/25 13:09 Bisacodyl 10 Mg Suppository RECTAL 10 mg DAILY PRN Administration Constipation Bupropion HCl 150 mg 07/30/25 09:00 08/03/25 08:15 Bupropion Hcl Sr (12 Hr) 150 Mg Tab PO 150 mg Q12HR GIOVANNY Administration Calcium Carbonate 200 mg 07/29/25 22:33 Calcium Carbonate (Tums) 500 Mg (200 Mg Elemental) PO Q6H PRN Indigestion Ciprofloxacin 750 mg 08/02/25 09:00 08/03/25 08:14 Ciprofloxacin 250 Mg Tablet PO 08/04/25 21:01 750 mg Q12HR GIOVANNY Administration Enoxaparin Sodium 40 mg 07/30/25 09:00 08/02/25 08:27 Enoxaparin 40 Mg/0.4 Ml Syringe SUB-Q 40 mg On Hold: 08/02/25 18:47 DAILY GIOVANNY Administration Ethambutol HCl 1,200 mg 07/30/25 09:00 08/03/25 08:14 Ethambutol Hcl 400 Mg Tablet PO 1,200 mg DAILY GIOVANNY Administration Fenofibrate 145 mg 07/30/25 09:00 08/03/25 08:15 Fenofibrate Nanocrystallized 145 Mg Tablet PO 145 mg QAM GIOVANNY Administration Guaifenesin 1,200 mg 07/30/25 09:00 08/03/25 08:15 Guaifenesin 12 Hr 600 Mg Tabcr PO 1,200 mg Q12HR GIOVANNY Administration Lorazepam 0.5 mg 07/29/25 21:19 08/03/25 08:15 Lorazepam (*Crx) 0.5 Mg Tablet PO 0.5 mg DAILY PRN Administration Anxiety Metoprolol Tartrate 50 mg 07/30/25 21:00 08/02/25 20:13 Metoprolol Tartrate 50 Mg Tab PO 50 mg HS GIOVANNY Administration Morphine Sulfate 30 mg 07/29/25 22:33 08/03/25 08:15 Morphine Sulfate (*Crx) 30 Mg Tabcr PO 30 mg Q12H PRN Administration Pain 7-10 Nitroglycerin 0.4 mg 07/29/25 22:33 Nitroglycerin Sl 0.4 Mg Tablet SUBLINGUAL Q5M PRN Chest Pain Rifabutin 150 Mg 300 mg 07/30/25 16:00 08/03/25 08:17 Capsule Home Med PO 08/29/25 15:59 300 mg DAILY GIOVANNY Administration Sulindac 200 Mg 200 mg 07/30/25 17:00 08/03/25 08:17 Tablet Home Med PO 08/29/25 16:59 200 mg BID GIOVANNY Administration Pantoprazole Sodium 40 mg 07/30/25 09:00 08/03/25 08:15 Pantoprazole 40 Mg Tablet PO 40 mg QAM GIOVANNY Administration Senna/Docusate Sodium 1 tab 08/02/25 09:00 08/03/25 08:16 Senna/Docusate Sodium Tablet PO 1 tab BID GIOVANNY Administration Sertraline HCl 50 mg 07/30/25 09:00 08/03/25 08:15 Sertraline Hcl 50 Mg Tablet PO 50 mg DAILY GIOVANNY Administration Tamsulosin HCl 0.4 mg 07/30/25 09:00 08/03/25 08:14 Tamsulosin Hcl 0.4 Mg Capsule PO 0.4 mg BID GIOVANNY Administration Trazodone HCl 100 mg 07/30/25 21:00 08/02/25 20:12 Trazodone Hcl 50 Mg Tablet PO 100 mg HS GIOVANNY Administration Radiology Results: ITS Impressions Chest CTA 07/29/25 18:25 IMPRESSION: 1. No pulmonary embolism. Sensitivity decreased in some of the smaller subsegmental pulmonary arteries particularly at the lung bases due to some r espiratory motion. 2. Emphysema with interval improvement in patchy pneumonia in the right middle and bilateral upper and lower lobes. 3. Chronic likely small right pleural effusion. 4. Pleural thickening the bilateral lung bases with regions of peripheral round atelectasis and pleural parenchymal scarring at the bilateral lower lobes. 5. Cardiomegaly. 6. Small sliding-type hiatal hernia. 7. Hepatosplenomegaly. 8. Ectatic infrarenal abdominal aorta measuring up to 3.7 cm. Abdomen/Pelvis CT 07/30/25 10:18 IMPRESSION: 1. No acute intra-abdominal process. 2. Aortic aneurysm outpatient CTA recommended 3. Incidental findings above Chest X-Ray 07/30/25 11:28 Impression: Right lower lobe pneumonia Abdomen X-Ray 08/02/25 11:28 IMPRESSION: 1. Nonspecific abdomen with a moderate to large amount of stool. If symptoms persist or worsen, consider a CT of the abdomen and pelvis for further assessm ent. 2. Small opacities in the lower lungs. 3. Possible small right-sided pleural effusion. Labs Labs: Laboratory Results - last 24 hr 08/02/25 08/03/25 20:29 04:16 WBC 6.2 RBC 2.82 L Hgb 7.8 L 7.8 L Hct 26.5 L 25.8 L MCV 91.5 MCH 27.7 MCHC 30.2 L RDW 16.7 H Plt Count 187 MPV 11.8 H Immature Gran % (Auto) 0.8 H Neut % (Auto) 78.2 H Lymph % (Auto) 9.6 L [place] % (Auto) 10.1 H Eos % (Auto) 1.3 Baso % (Auto) 0.0 L Lymph # (Auto) 0.60 L [place] # (Auto) 0.6 Eos # (Auto) 0.1 Baso # (Auto) 0.0 Abs Immat Gran (auto) 0.05 H Absolute Neuts (auto) 4.9 Absolute Nucleated RBC 0.000 Nucleated RBC % 0.0 Sodium 132 L Potassium 4.9 Chloride 100 Carbon Dioxide 28 Anion Gap 4 BUN 31 H Creatinine 1.04 Estim Creat Clear Calc 52 Estimated GFR > 60 Glucose 94 Calcium 8.3 L Magnesium 2.1
--- NOTE | 2025-08-03 16:00 | PM.PNPUL ---
Progress Note: A&P Assessment and Plan (1) Pneumonia: Qualifiers: Laterality: right Lung location: unspecified part of lung Pneumonia type: due to unspecified organism Qualified Code(s): J18.9 - Pneumonia, unspecified organism Code(s): J18.9 - Pneumonia, unspecified organism Status: Acute Assessment and Plan: Small right lower lobe infiltrate with effusion on chest x-ray and chest CT, the CTA shows that this is improving. CXR today Aug 03 shows stable findings. Now on oral Cipro since Aug 02, will continue until Aug 09. (2) Chronic hypoxic respiratory failure, on home oxygen therapy: Code(s): J96.11 - Chronic respiratory failure with hypoxia; Z99.81 - Dependence on supplemental oxygen Status: Acute Assessment and Plan: He is on his same O2 requirement at home, 4 L/min (3) COPD (chronic obstructive pulmonary disease): Code(s): J44.9 - Chronic obstructive pulmonary disease, unspecified Status: Acute Assessment and Plan: Long standing (4) History of tobacco use: Code(s): Z87.891 - Personal history of nicotine dependence Status: Acute Assessment and Plan: former smoker. (5) SNEHA (mycobacterium avium-intracellulare): Code(s): A31.0 - Pulmonary mycobacterial infection Status: Acute Assessment and Plan: Outlined plans to continue his SNEHA Rx with azithromycin, ethambutol, rifabutin x 18 months. He is followed by ID team at [facility]. Plan plan: He is stable for discharge, on 4L, same O2 flow that he was on before admission. Oral levofloxacin 750 mg until Aug 09. Continue pulmonary hygiene using Cornet valve t.i.d Does not need to schedule out patient appt with us at this time. d/w Dr Black. Subjective Date/time seen: 08/03/25 16:00 Interval history: 08/03/25; hospital follow up; He is sitting up in bed, son Bruce is present. Russell Morse has COPD, chronic respiratory failure on O2 at 4 L, SNEHA colonization v infection, on azithromycin, rifabutin and ethambutol, Pseudomonas colonization. The patient remains on O2 at 4 L/min. He is not feeling worse. He is on oral levofloxacin 750 mg for treatment of bilateral pneumonia. No organism isolated. He is not complaining of any significant coughing or sputum. CXR today Aug 03, 2025 is stable. 1. No significant change or worsening. 2. Chronic right pleural effusion. 3. Chronic bibasilar scarring. 4. No definite foci of airspace disease. 08/02/25; new; Russell Morse is an 80-year-old man well known to our service, admitted on July 29 with an elevated white blood cell count 19.9k and a chest x-ray showing a right lower lobe infiltrate. He has COPD, SNEHA infection being managed by the ID clinic at [facility] on azithromycin, rifabutin and ethambutol, Pseudomonas colonization, on home O2 4 L a minute. He tells me that he was sick for about 3 days prior to admission. He was not able to ambulate to the dining page for 2 and half days before admission. His roommate was telling him to stop coughing so much at night. He had the same light yellow sputum that he normally has. He does feel better today August 02 compared to admission. He had a chest CTA showing no PE, emphysema, interval improvement in the right lower lobe infiltrate, pleural thickening in the lung bases with round atelectasis, small right pleural effusion. He was last discharged from [facility] on July 23, went to [facility] in [place] as his son and [id number] cannot care for him adequately at home any longer. He has had multiple admissions over the last 2 months. He had a chest x-ray on July 11, 2025 at [facility]. There was no comparison to other old chest x-rays. Interpretation said bilateral opacities with a note that said to make sure his pulmonary doctor was involved. DATA * 07/29/25, CXR, IMPRESSION: 1. Emphysema with persistent coarse reticular pattern in the right mid to lower and left lower lung zones which in acute setting could represent mild pulmonary edema, pneumonia or atelectasis or more chronic interstitial lung disease. Chronic small right pleural effusion. * 07/29/2025, CTA ; IMPRESSION: 1. No pulmonary embolism. Sensitivity decreased in some of the smaller subsegmental pulmonary arteries particularly at the lung bases due to some respiratory motion. 2. Emphysema with interval improvement in patchy pneumonia in the right middle and bilateral upper and lower lobes. 3. Chronic likely small right pleural effusion. 4. Pleural thickening the bilateral lung bases with regions of peripheral round atelectasis and pleural parenchymal scarring at the bilateral lower lobes. 5. Cardiomegaly. 6. Small sliding-type hiatal hernia. 7. Hepatosplenomegaly. 8. Ectatic infrarenal abdominal aorta measuring up to 3.7 cm. * 07/30/25. CXR: Impression: Right lower lobe pneumonia Review of Systems Review of Systems: All systems reviewed & are unremarkable except as noted in HPI and below Exam Narrative: GEN: Alert, oriented, not in distress. He is on 4 L/min nasal cannula, sat is CHEST: Equal air entry, symmetric excursion, crackles in the right base, no wheezing CV: Regular S1S2 no m/g/r Extremities : no clubbing, cyanosis, or edema. He has dried excoriated skin over the front of his lower legs. PSYCH: normal thought and speech Objective Data Vital Signs Vital Signs: Vital Signs - 24 hr 08/02/25 20:00 08/02/25 20:00 08/02/25 20:00 Temperature 36.5 C Pulse Rate 129 H 68 Respiratory Rate 18 Blood Pressure 125/58 L Pulse Oximetry 100 97 Oxygen Delivery Nasal Cannula Oxygen Flow Rate 4 08/02/25 20:13 08/02/25 20:37 08/02/25 20:40 Temperature Pulse Rate 66 64 Respiratory Rate 22 H Blood Pressure Pulse Oximetry 94 Oxygen Delivery Nasal Cannula Oxygen Flow Rate 4 08/02/25 20:48 08/03/25 00:00 08/03/25 00:00 Temperature 36.4 C Pulse Rate 66 64 63 Respiratory Rate 22 H 18 Blood Pressure 128/48 L Pulse Oximetry 100 Oxygen Delivery Oxygen Flow Rate 08/03/25 04:00 08/03/25 04:00 08/03/25 08:00 Temperature 36.4 C 36.4 C Pulse Rate 56 L 65 61 Respiratory Rate 18 18 Blood Pressure 132/48 L 124/58 L Pulse Oximetry 99 100 Oxygen Delivery Oxygen Flow Rate 08/03/25 08:00 08/03/25 08:20 08/03/25 08:47 Temperature Pulse Rate 58 L 75 Respiratory Rate 21 H Blood Pressure Pulse Oximetry 99 Oxygen Delivery Nasal Cannula Oxygen Flow Rate 4 08/03/25 08:53 08/03/25 11:53 08/03/25 12:00 Temperature 36.4 C Pulse Rate 72 60 62 Respiratory Rate 21 H 20 Blood Pressure 99/50 L Pulse Oximetry Oxygen Delivery Oxygen Flow Rate Intake/Output Intake/Output: Intake & Output 07/31/25 08/01/25 08/02/25 08/03/25 23:59 23:59 23:59 23:59 Intake Total 1600 2460 3300 660 Output Total 206 052 7029 1250 Balance 650 1585 1425 -058 Meds/Results Medications: Active Medications Generic Name Dose Route Start Last Admin Trade Name Freq PRN Reason Stop Dose Admin Acetaminophen 650 mg 07/29/25 19:46 Acetaminophen 325 Mg Tablet PO Q4H PRN Mild Pain (1-3) or Fever Hydrocodone Bitart/Acetaminophen 1 tab 07/30/25 12:51 08/02/25 20:12 Hydrocodone/Acetaminophen (*Crx) 5-325 Mg Tablet PO 1 tab Q6H PRN Administration Pain Rated 4-6 Albuterol/Ipratropium 3 ml 07/30/25 05:49 08/03/25 09:42 Ipratropium 0.5 Mg/Albuterol Sulfate 2.5 Mg Ampul.Neb 3 Ml INHALATION 3 ml Q4H PRN Administration Dyspnea Aspirin 81 mg 07/30/25 09:00 08/03/25 08:15 Aspirin 81 Mg Enteric Tablet PO 81 mg DAILY GIOVANNY Administration Azithromycin 250 mg 07/30/25 09:00 08/03/25 08:15 Azithromycin 250 Mg Tablet PO 250 mg DAILY GIOVANNY Administration Baclofen 10 mg 07/30/25 21:00 08/02/25 20:12 Baclofen 10 Mg Tablet PO 10 mg HS GIOVANNY Administration Baclofen 10 mg 07/29/25 22:33 Baclofen 10 Mg Tablet PO Q8H PRN Muscle Spasm Benzonatate 200 mg 07/29/25 21:19 08/02/25 20:22 Benzonatate 100 Mg Capsule PO 200 mg TID PRN Administration Cough Bisacodyl 10 mg 08/01/25 18:16 08/02/25 13:09 Bisacodyl 10 Mg Suppository RECTAL 10 mg DAILY PRN Administration Constipation Bupropion HCl 150 mg 07/30/25 09:00 08/03/25 08:15 Bupropion Hcl Sr (12 Hr) 150 Mg Tab PO 150 mg Q12HR GIOVANNY Administration Calcium Carbonate 200 mg 07/29/25 22:33 Calcium Carbonate (Tums) 500 Mg (200 Mg Elemental) PO Q6H PRN Indigestion Ciprofloxacin 750 mg 08/02/25 09:00 08/03/25 08:14 Ciprofloxacin 250 Mg Tablet PO 08/04/25 21:01 750 mg Q12HR GIOVANNY Administration Enoxaparin Sodium 40 mg 07/30/25 09:00 08/02/25 08:27 Enoxaparin 40 Mg/0.4 Ml Syringe SUB-Q 40 mg On Hold: 08/02/25 18:47 DAILY GIOVANNY Administration Ethambutol HCl 1,200 mg 07/30/25 09:00 08/03/25 08:14 Ethambutol Hcl 400 Mg Tablet PO 1,200 mg DAILY GIOVANNY Administration Fenofibrate 145 mg 07/30/25 09:00 08/03/25 08:15 Fenofibrate Nanocrystallized 145 Mg Tablet PO 145 mg QAM GIOVANNY Administration Guaifenesin 1,200 mg 07/30/25 09:00 08/03/25 08:15 Guaifenesin 12 Hr 600 Mg Tabcr PO 1,200 mg Q12HR GIOVANNY Administration Lorazepam 0.5 mg 07/29/25 21:19 08/03/25 08:15 Lorazepam (*Crx) 0.5 Mg Tablet PO 0.5 mg DAILY PRN Administration Anxiety Metoprolol Tartrate 50 mg 07/30/25 21:00 08/02/25 20:13 Metoprolol Tartrate 50 Mg Tab PO 50 mg HS GIOVANNY Administration Morphine Sulfate 30 mg 07/29/25 22:33 08/03/25 08:15 Morphine Sulfate (*Crx) 30 Mg Tabcr PO 30 mg Q12H PRN Administration Pain 7-10 Nitroglycerin 0.4 mg 07/29/25 22:33 Nitroglycerin Sl 0.4 Mg Tablet SUBLINGUAL Q5M PRN Chest Pain Rifabutin 150 Mg 300 mg 07/30/25 16:00 08/03/25 08:17 Capsule Home Med PO 08/29/25 15:59 300 mg DAILY GIOVANNY Administration Sulindac 200 Mg 200 mg 07/30/25 17:00 08/03/25 08:17 Tablet Home Med PO 08/29/25 16:59 200 mg BID GIOVANNY Administration Pantoprazole Sodium 40 mg 07/30/25 09:00 08/03/25 08:15 Pantoprazole 40 Mg Tablet PO 40 mg QAM GIOVANNY Administration Senna/Docusate Sodium 1 tab 08/02/25 09:00 08/03/25 08:16 Senna/Docusate Sodium Tablet PO 1 tab BID GIOVANNY Administration Sertraline HCl 50 mg 07/30/25 09:00 08/03/25 08:15 Sertraline Hcl 50 Mg Tablet PO 50 mg DAILY GIOVANNY Administration Tamsulosin HCl 0.4 mg 07/30/25 09:00 08/03/25 08:14 Tamsulosin Hcl 0.4 Mg Capsule PO 0.4 mg BID GIOVANNY Administration Trazodone HCl 100 mg 07/30/25 21:00 08/02/25 20:12 Trazodone Hcl 50 Mg Tablet PO 100 mg HS GIOVANNY Administration Radiology Results: ITS Impressions Chest CTA 07/29/25 18:25 IMPRESSION: 1. No pulmonary embolism. Sensitivity decreased in some of the smaller subsegmental pulmonary arteries particularly at the lung bases due to some respiratory motion. 2. Emphysema with interval improvement in patchy pneumonia in the right middle and bilateral upper and lower lobes. 3. Chronic likely small right pleural effusion. 4. Pleural thickening the bilateral lung bases with regions of peripheral round atelectasis and pleural parenchymal scarring at the bilateral lower lobes. 5. Cardiomegaly. 6. Small sliding-type hiatal hernia. 7. Hepatosplenomegaly. 8. Ectatic infrarenal abdominal aorta measuring up to 3.7 cm. Abdomen/Pelvis CT 07/30/25 10:18 IMPRESSION: 1. No acute intra-abdominal process. 2. Aortic aneurysm outpatient CTA recommended 3. Incidental findings above Abdomen X-Ray 08/02/25 11:28 IMPRESSION: 1. Nonspecific abdomen with a moderate to large amount of stool. If symptoms persist or worsen, consider a CT of the abdomen and pelvis for further assessment. 2. Small opacities in the lower lungs. 3. Possible small right-sided pleural effusion. Chest X-Ray 08/03/25 14:38 IMPRESSION: 1. No significant change or worsening. 2. Chronic right pleural effusion. 3. Chronic bibasilar scarring. 4. No definite foci of airspace disease. Labs Labs: Laboratory Results - last 24 hr 08/02/25 08/03/25 20:29 04:16 WBC 6.2 RBC 2.82 L Hgb 7.8 L 7.8 L Hct 26.5 L 25.8 L MCV 91.5 MCH 27.7 MCHC 30.2 L RDW 16.7 H Plt Count 187 MPV 11.8 H Immature Gran % (Auto) 0.8 H Neut % (Auto) 78.2 H Lymph % (Auto) 9.6 L [place] % (Auto) 10.1 H Eos % (Auto) 1.3 Baso % (Auto) 0.0 L Lymph # (Auto) 0.60 L [place] # (Auto) 0.6 Eos # (Auto) 0.1 Baso # (Auto) 0.0 Abs Immat Gran (auto) 0.05 H Absolute Neuts (auto) 4.9 Absolute Nucleated RBC 0.000 Nucleated RBC % 0.0 Sodium 132 L Potassium 4.9 Chloride 100 Carbon Dioxide 28 Anion Gap 4 BUN 31 H Creatinine 1.04 Estim Creat Clear Calc 52 Estimated GFR > 60 Glucose 94 Calcium 8.3 L Magnesium 2.1
--- NOTE | 2025-08-05 14:41 | P.DS_ITS ---
DS: Admitting Diagnosis Discharge Date 08/03/25 Admitting Diagnosis Shortness of breath DS: Discharge Diagnosis Discharge Diagnosis (1) SNEHA (mycobacterium avium-intracellulare): Code(s): A31.0 - Pulmonary mycobacterial infection Status: Acute (2) Pneumonia: Qualifiers: Laterality: right Lung location: unspecified part of lung Pneumonia type: due to unspecified organism Qualified Code(s): J18.9 - Pneumonia, unspecified organism Code(s): J18.9 - Pneumonia, unspecified organism Status: Acute (3) Chronic obstructive pulmonary disease: Qualifiers: COPD type: chronic bronchitis Chronic bronchitis type: unspecified Qualified Code(s): J42 - Unspecified chronic bronchitis Code(s): J44.9 - Chronic obstructive pulmonary disease, unspecified Status: Acute (4) Chronic hypoxic respiratory failure, on home oxygen therapy: Code(s): J96.11 - Chronic respiratory failure with hypoxia; Z99.81 - Dependence on supplemental oxygen Status: Acute (5) SANDI (acute kidney injury): Code(s): N17.9 - Acute kidney failure, unspecified Status: Acute DS: Summary Hospital Course Hospital Course: 80-year-old male with history of CHF with reduced ejection fraction, CKD stage 3, COPD, NSTEMI, remote polio, chronic respiratory failure due to SNEHA pneumonia presents with shortness of breath and hypoxia. Treated for pneumonia. Completed course with ciprofloxacin. Recommended by Infectious Disease medical device sales consultant. Leukocytosis improved. Mild SANDI resolved status post fluid resuscitation. Had constipation which was resolved with Senokot S and MiraLax. [facility] He has follow-up with Infectious Disease [facility]. His SNEHA treatment was continued. The patient was DNR. Home his questions and concerns were answered to satisfaction. Time Spent with Patient Time attestation: Total time spent providing and/or coordinating discharge services: Exam Const: General: comfortable and no acute distress Eyes: Pupils: Equal, round and reactive pupils present Neck: Neck: supple Resp: Effort & Inspection: normal respiratory effort Other: Coarse breath sounds Cardio: Rate: regular rate Rhythm: regular rhythm GI: Inspection: distended GI Palp: Yes Soft to palpation and No Tenderness to palpation present (GI) Extrem: General: no edema DS: Data Data Completed and Pending Labs on day of discharge: Preliminary micro results at discharge 08/01/25 01:02 Blood Culture - Preliminary Blood 08/01/25 00:57 Blood Culture - Preliminary Blood 07/29/25 22:17 Blood Culture - Preliminary Blood 07/29/25 22:17 Blood Culture - Preliminary Blood Discharge Plan Discharge Attending physician on discharge: ana Consulting providers: Keith Jolly; Ameena Vigil; Bert Earl; Magdy Morgan; Ina Cortes; Usha Simon; Jay Murphy; Rashid Elmore; Garland Horton; Jewel Briggs Discharging Clinician: Yumiko Black Patient Disposition: SNF Activity: march shower Diet: as tolerated Discharge Instructions: Continue to use Cornet valve. Follow-up with PCP within 7 days, follow-up with infectious disease consultants via [facility] [employer] with Dr. Keith Jolly Patient Language: [place] Verdean Stand Alone Forms: General Discharge Information Follow-up/Referrals: Keith Jolly MD [Physician, Infectious Disease] Rogelio Moeller DO [Primary Care Provider, Family Practice] Discharge Medications: Continued (DME) nebulizer and compressor Device See Rx Instructions .Route Qty: 1 0RF Rx Instructions: As directed (DME) nebulizer accessories Kit See Rx Instructions .Route Qty: 1 0RF Rx Instructions: As directed ethambutol 400 mg tablet 1,200 mg PO DAILY tamsulosin 0.4 mg capsule 0.4 mg PO BID esomeprazole magnesium 20 mg capsule,delayed release(DR/EC) 20 mg PO DAILY rifabutin 150 mg capsule 300 mg PO DAILY Qty: 60 3RF Patient Comments: take for 21 days, started on 06/08/25 guaifenesin [Mucus Relief ER] 600 mg Tablet Extended Release 12hr 1,200 mg PO Q12HR Qty: 60 0RF ipratropium-albuterol 0.5 mg-3 mg(2.5 mg base)/3 mL Solution For Nebulization 3 ml inhalation Q6HRT Qty: 180 0RF baclofen 10 mg Tablet 10 mg PO HS Qty: 30 0RF morphine 30 mg tablet extended release 30 mg PO Q12H PRN (Reason: pain) 3 Days Qty: 6 0RF benzonatate 100 mg Capsule 200 mg PO TID PRN (Reason: Cough) Qty: 30 0RF olopatadine [Eye Allergy Itch Relief] 0.2 % drops 1 drp EACH EYE DAILY PRN (Reason: itching) Qty: 5 0RF lorazepam [Ativan] 0.5 mg tablet 0.5 mg PO DAILY MDD 0.5 PRN (Reason: anxiety) Qty: 14 0RF aspirin 81 mg Tablet,Delayed Release (Dr/Ec) 81 mg PO DAILY Qty: 90 0RF metoprolol tartrate [Lopressor] 50 mg tablet 50 mg PO HS azithromycin [Zithromax] 250 mg Tablet 250 mg PO DAILY Rx Instructions: stop 08/29/25 magnesium hydroxide [Milk of Magnesia] 400 mg/5 mL suspension 30 ml PO HS PRN (Reason: constipation) Rx Instructions: if no bm x3 days bisacodyl 10 mg suppository 10 mg RECTAL DAILY PRN (Reason: constipation) Rx Instructions: if no results from mom cilcitriol capsule capsule See Rx Instructions .ROUTE .COMPLEX Rx Instructions: 0.25 mcg po daily; baclofen 10 mg tablet 10 mg PO Q8H PRN (Reason: muscle spasm) fenofibrate 160 mg tablet 160 mg PO DAILY Qty: 90 2RF albuterol sulfate 90 mcg/actuation HFA aerosol inhaler 2 puff INHALATION Q4H PRN (Reason: Shortness Of Breath Or Wheezing) Qty: 8.5 5RF nitroglycerin 0.4 mg tablet, sublingual 0.4 mg sublingual Q5M PRN (Reason: chest pain) Qty: 25 3RF Rx Instructions: do not exceed 3 doses per episode sulindac 200 mg tablet 200 mg PO BID Qty: 180 1RF sertraline 50 mg tablet 50 mg PO DAILY Qty: 90 3RF hydroxyzine HCl 25 mg tablet 25 mg PO QID PRN (Reason: anxiety) Qty: 50 2RF trazodone 100 mg tablet 100 mg PO HS Qty: 90 1RF bupropion HCl 150 mg tablet sustained-release 12 hr 150 mg PO BID Qty: 180 2RF Discontinued acetylcysteine 200 mg/mL (20 %) Solution 200 mg inhalation Q6HRT Qty: 180 0RF Date of admission: 07/30/25 12:01 Primary Care Provider: Rogelio Moeller Admitting Provider: Delvin Rivera Attending physician on admission: Yumiko Black Condition: Stable Hospitalist MIPS Heart Failure (Exclusion) Patient has history of Heart Transplant or Left Ventricular Assistive Device?: No IF YES, STOP HERE Heart Failure (Qualifier) Patient has current or prior documentation of LVEF less than or equal to 40%, or mod/servere depressed LVSF?: No IF NO, STOP HERE
== END 2025-08-03 17:30 | DRG 177 ==
LOC: ANHED 19:47 → ANH2MED 20:05
PROVIDERS: Nurse Practitioner; Nurse Practitioner Gerontology; Admitting Provider Internal Medicine; Emergency Provider Physician Assistant; PCP Family Medicine; Visit Provider General Practice
DX: A31.0 Pulmonary mycobacterial infection (principal); E43 Unspecified severe protein-calorie malnutrition; N17.9 Acute kidney failure, unspecified; I13.0 Hypertensive heart and chronic kidney disease with heart failure and stage 1 through stage 4 chronic kidney disease, or unspecified chronic kidney disease; J44.0 Chronic obstructive pulmonary disease with (acute) lower respiratory infection; J96.11 Chronic respiratory failure with hypoxia; I50.32 Chronic diastolic (congestive) heart failure; J18.9 Pneumonia, unspecified organism; N18.30 Chronic kidney disease, stage 3 unspecified; K21.9 Gastro-esophageal reflux disease without esophagitis; I25.10 Atherosclerotic heart disease of native coronary artery without angina pectoris; D64.9 Anemia, unspecified; K59.00 Constipation, unspecified; D72.829 Elevated white blood cell count, unspecified; N40.0 Benign prostatic hyperplasia without lower urinary tract symptoms; I71.9 Aortic aneurysm of unspecified site, without rupture; F41.9 Anxiety disorder, unspecified; G25.81 Restless legs syndrome; Z66 Do not resuscitate; I25.2 Old myocardial infarction; Z99.81 Dependence on supplemental oxygen; Z68.24 Body mass index [BMI] 24.0-24.9, adult; Z86.12 Personal history of poliomyelitis; Z87.891 Personal history of nicotine dependence; Z95.5 Presence of coronary angioplasty implant and graft
CPT/HCPCS: 36415; 71045; 71046; 71275; 74018; 74176; 80048; 80053; 81001; 81003; 82948; 83605; 83735; 83880; 84145; 85014; 85018; 85025; 85652; 86140; 87040; 93005; 94640; 94667; 96365; 96368; 96375; 96376; 97110; 97162; 97530; 99285; A9270; G0378; J0692; J0696; J1650; J1938; J7030; J7040; Q9967

== ENCOUNTER 2025-08-22 20:08 | Inpatient (IN) | payer MEDICARE, SELFPAY ==
--- OUTSIDE RECORDS SUMMARY | 2019-04-28 07:00 | XMS_ITS | Continuity of Care Document ---
Author Organization 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 Name Role Phone Dante PT, DPT, Te Unavailable Unavailable Procedures Procedure Date Therapeutic Exercise Therapeutic Activities Neuromuscular Re-Ed Therapeutic Exercise Therapeutic Activities Neuromuscular Re-Ed Therapeutic Exercise Therapeutic Activities Neuromuscular Re-Ed Therapeutic Exercise Therapeutic Activities Neuromuscular Re-Ed Therapeutic Exercise Therapeutic Activities Therapeutic Exercise Therapeutic Activities Neuromuscular Re-Ed Therapeutic Exercise Therapeutic Activities Neuromuscular Re-Ed PT Evaluation High Complexity 9 Neuromuscular Re-Ed Advance Directives Directive Yes / No Effective Date File Name No Information Encounters Encounter Description Practice Location Reason(s) For Visit Diagnoses Date Provider Providers Copied on Encounter [facility], [address], [place], [place], [id number], [place] tel:[phone] Joe Low back painOth symptoms and signs involving the musculoskelet al systemAbnorma l postureOther abnormalities of gait and mobility 9 Dante Tiwari. . Referring Provider: Naveed Mcintosh , [address] [place] [address], [place], [address]. tel:[phone] [facility], [id number], tel:[phone] Lawson Low back painOth symptoms and signs involving the musculoskelet al systemAbnorma l postureOther abnormalities of gait and mobility Krystlehovidya Starka. . Referring Provider: Naveed Mcintosh , [address] [place] [address], [id number]. tel:[phone] [facility], [id number], [place] tel:[phone] Lawson Low back painOth symptoms and signs involving the musculoskelet al systemAbnorma l postureOther abnormalities of gait and mobility Krystlehovidya Mcclellan. . Referring Provider: Naveed Mcintosh , [address] [place] [address], [id number]. tel:[phone] [facility], [id number], tel:[phone] Lawson Low back painOth symptoms and signs involving the musculoskelet al systemAbnorma l postureOther abnormalities of gait and mobility Krystlehoffer Vy. . Referring Provider: Naveed Mcintosh , [address] [place] [address], [id number]. tel:[phone] [facility], [id number], tel:[phone] Lawson Low back painOth symptoms and signs involving the musculoskelet al systemAbnorma l postureOther abnormalities of gait and mobility Dante Tiwari. . Referring Provider: Naveed Mcintosh , [address] [place] [address], [id number]. tel:[phone] [facility], [id number], tel:[phone] Lawson Low back painOth symptoms and signs involving the musculoskelet al systemAbnorma l postureOther abnormalities of gait and mobility 0-201 9 Dante Tiwari. . Referring Provider: Naveed Mcintosh , [address] [place] [address], [address]. tel:[phone] [facility] [address], [id number], tel:[phone] Lawson Low back painOth symptoms and signs involving the musculoskelet al systemAbnorma l postureOther abnormalities of gait and mobility 7201 9 Dante Tiwari. . Referring Provider: Naveed Mcintosh , [address] [place] [address], [address]. tel:[phone] [facility] [address], [id number], tel:[phone] Lawson Low back painOth symptoms and signs involving the musculoskelet al systemAbnorma l postureOther abnormalities of gait and mobility 5201 9 Rick Mcclellan. . Referring Provider: Naveed Mcintosh , [address] [place] [address], [id number]. tel:[phone] Family History Family Member Type Diagnosis Age At Onset No Information Payers Payer name Insurance type Covered green party ID Authoriza tion(s) AARP Medicare Complete CI [id number] Social History Type Description Quantity Date Captured Comments Sex Male Smoking Status No Information Chief Complaint And Reason For Visit No Information Reason For Referral Reason For Referral No Information History Of Present Illness Encounter Date Complaint History Of Prese nt Illness No Information Functional Status Date Functional Assessmen t No Information Instructions Date Instruction Additional Infor mation No Information Assessments Type Assessment Date No Information Patient Care Teams Name Effective Dates (start - stop) Status Members No Information
--- NOTE | ~2025-08-22 | CT_ITS ---
EXAMINATION:CT diagnostic chest w con DATE: 08/22/2025 22:25 INDICATION: Hypoxia. TECHNIQUE: Computed tomography (CT) of the chest was performed with 75 mL Omnipaque 350 intravenous contrast. Automated exposure control and iterative reconstruction technique were employed. The dose-length product (DLP) was 229.16 mGy-cm. COMPARISON: Chest CT 07/29/2025 FINDINGS: There is moderate emphysema. There are small right and trace left pleural effusions with pleural thickening. There is chronic peripheral septal thickening in the lungs. There are peripheral airspace opacities in all lobes with a lower lung predominance with worsening in posterior segment right upper lobe. There are tree-in-bud opacities in left upper lobe posteriorly. There are nodules in the thyroid measuring up to 5 mm, likely not clinically significant. The heart size is normal. There are coronary artery calcifications. No pericardial effusion. There is mild mediastinal lymphadenopathy, likely reactive. Calcified mediastinal lymph nodes are consistent with old granulomatous disease. Calcifications in the spleen are consistent with old granulomatous disease. There are cysts in the liver measuring up to 12 mm. There are bridging endplate osteophytes at multiple levels in the spine, consistent with diffuse idiopathic skeletal hyperostosis (DISH). There is moderate thoracic spondylosis. IMPRESSION: 1. Moderate emphysema. 2. Diffuse lung disease with a peripheral and lower lung predominance with worsening in posterior segment right upper lobe, likely a combination of rounded atelectasis and pneumonia. 3. Chronic small right pleural effusion. Chronic bilateral pleural thickening. 4. Small sliding hiatal hernia. Reviewed, dictated and finalized at location E. IMPRESSION: 1. Moderate emphysema. 2. Diffuse lung disease with a peripheral and lower lung predominance with wors ening in posterior segment right upper lobe, likely a combination of rounded at electasis and pneumonia. 3. Chronic small right pleural effusion. Chronic bilateral pleural thickening. 4. Small sliding hiatal hernia.
--- NOTE | ~2025-08-22 | XR_ITS ---
EXAMINATION: XR chest 1V portable COMPARISON: No comparisons available. HISTORY: follow-up pneumonia FINDINGS: Bilateral infiltrates, COPD changes. No pneumothorax. Heart is normal size. Mediastinal and hilar contours are within normal limits. Bony thorax no acute abnormality. Miscellaneous: None Impression: Bilateral pneumonia Reviewed, dictated and finalized at location P. Impression: Bilateral pneumonia
--- NOTE | ~2025-08-22 | XR_ITS ---
EXAMINATION: XR chest 1V portable COMPARISON: No comparisons available. HISTORY: SNEHA, pneumonia FINDINGS: COPD changes. Bilateral infiltrates most marked in the right upper and right lower lobes with small effusion. No pneumothorax. Heart is normal size. Mediastinal and hilar contours are within normal limits. Bony thorax no acute abnormality. Miscellaneous: None Impression: Bilateral pneumonia. The findings appear progressed compared to the previous study Reviewed, dictated and finalized at location P. Impression: Bilateral pneumonia. The findings appear progressed compared to the previous [facility]
--- NOTE | ~2025-08-22 | CT_ITS ---
EXAMINATION: CT brain wo con DATE: 08/22/2025 22:20 INDICATION: Altered mental status. TECHNIQUE: Computed tomography (CT) of the head was performed without intravenous contrast. The mA was adjusted according to patient size. Iterative reconstruction technique was employed. The dose-length product was 605.33 mGy-cm. COMPARISON: Head CT 07/18/2025 FINDINGS: There are scattered areas of low attenuation in the cerebral white matter. There is no intracranial hemorrhage, acute infarction, or abnormal intracranial mass lesion. The ventricles are normal in size. There are likely changes of ocular lens replacement surgeries. There is mild mucosal thickening in the ethmoid sinuses. There is a left mastoid effusion. IMPRESSION: 1. Stable moderate nonspecific cerebral white matter disease, which likely represents chronic small vessel ischemic disease. Reviewed, dictated and finalized at location E. IMPRESSION: 1. Stable moderate nonspecific cerebral white matter disease, which likely repr esents chronic small vessel ischemic disease.
--- NOTE | ~2025-08-22 | XR_ITS ---
EXAMINATION: XR chest 1V portable DATE: 08/22/2025 20:46 INDICATION: Weakness TECHNIQUE: frontal view of the chest was obtained. COMPARISON: Chest radiograph dated 08/03/25 FINDINGS: Persistent groundglass opacities in the right mid to lower lung zone with blunting at the right costophrenic angle consistent with small posterior layering right pleural effusion. Persistent linear and reticular opacities in the right mid to lower and left lower lung zones which could represent atelect asis and/or pneumonia. No pneumothorax or left-sided pleural effusion. Heart size is normal. IMPRESSION: 1. No significant change in a small right pleural effusion or of linear and reticular opacities in the right mid and bilateral lower lung zones which could represent atelectasis/scarring and/or pneumonia. Reviewed, dictated and finalized at location A. IMPRESSION: 1. No significant change in a small right pleural effusion or of linear and ret icular opacities in the right mid and bilateral lower lung zones which could re present atelectasis/scarring and/or pneumonia.
[2025-08-22 20:08] VITALS: BP 98/41; PULSE 64; RESP 17; TEMP 36.4; O2SAT 100
--- NOTE | 2025-08-22 20:19 | ECG_ITS ---
Test Date: 2025-08-22 21:13:42 Measurements Intervals [place] Rate: 63 P: 46 GA: 217 QRS: -4 QRSD: 121 T: 12 QT: 421 QTc: 434 Interpretive Statements SINUS RHYTHM WITH FIRST DEGREE AV BLOCK RIGHT BUNDLE BRANCH BLOCK ABNORMAL ECG Compared to ECG 08/03/2025 13:02:19 RIGHT BUNDLE BRANCH BLOCK NOW PRESENT Electronically Signed On 08-23-2025 06:17:35 CDT by Tim Mary D.O.
[2025-08-22 20:41] LABS: Hematocrit 24.3 % (42.0-52.0); Hemoglobin 7.3 g/dL (14.0-18.0); Immature Granulocyte Percent A 0.7 % (0-0.5); Lymphocytes Absolute Auto 0.58 K/mm3 (0.9-3.2); Mean Corpuscular HGB Conc 30.0 g/dl (32-36); Mean Corpuscular Hemoglobin 26.6 pg (26-34); Mean Corpuscular Volume 88.7 fl (80-100); Nucleated Red Blood Cells Absolute Auto 0.000 K/mm3 (0.0-0.012); Nucleated Red Blood Cells Perc 0.0 % (0.0-0.2); Platelet Count Result 164 k/mm3 (150-375); Red Blood Count 2.74 M/mm3 (4.6-6.20); White Blood Count 11.0 K/mm3 (4.5-10.0)
[2025-08-22 20:54] LABS: Alanine Aminotransferase 20 U/L (6-50); Albumin Level 2.9 g/dL (3.5-5.1); Alkaline Phosphatase 108 U/L (38-126); Anion Gap 5 mmol/L (4-12); Aspartate Amino Transferase 36 U/L (17-59); Bilirubin,Total 1.5 mg/dL (0.2-1.3); Blood Urea Nitrogen 28 mg/dL (9-20); Calcium 8.7 mg/dL (8.4-10.2); Carbon Dioxide 28 mmol/L (22-30); Chloride 97 mmol/L (98-107); Estimated CRCL calculation 36 ml/min; Estimated Glomerular Filt Rate 49; Glucose 108 mg/dL (65-110); Potassium 4.1 mmol/L (3.4-5.0); Sodium 130 mmol/L (137-145); Total Protein 5.8 g/dL (6.3-8.2)
[2025-08-22 21:05] LABS: INR 2.2; Prothrombin Time 23.6 Seconds (11.1-14.7)
[2025-08-22 21:07] LABS: Partial Thromboplastin Time 69.9 Seconds (22.3-36.8)
--- OUTSIDE RECORDS SUMMARY | 2025-08-22 21:15 | XMS_ITS | Clinical Summary ---
Author Organization [facility] [id number] [facility] Address [address] [place] [address] Care Team Providers Care Senior Category Manager Name Role Phone Naveed Mcintosh MD Primary Care Provider [phone] Allergies No known active allergies Medications meloxicam [...] Take 1 Tablet by mouth daily. Active [id number] -Fish Oil (FISH OIL) 1,000 mg (120 [...] series) 2019 INFLUENZA VACCINE (#1) 2025 Insurance [facility] [id number] Care Teams Senior Category Manager Relationship Specialty Start Date End Date Naveed Mcintosh MD PCP - General Family Practice 05/18/19
--- OUTSIDE RECORDS SUMMARY | 2025-08-22 21:15 | XMS_ITS | Clinical Summary ---
Author Organization [facility] [address] Address [address] [place] [address] Care Team Providers Care Property Adjuster Name Role Phone Naveed Mcintosh MD Primary Care Prov ider Salas Gottlieb MD Unavailable [phone] Allergies Active Allergy Reactions Criticality Noted Date [...] 80 mg tabletIndicatio ns:Coronary artery disease involving [place] coronary artery of [place] heart without angina pectoris TAKE 1 TABLET [...] 25 mg tabletIndicatio ns:Coronary artery disease involving [place] coronary artery of [place] heart without angina pectoris TAKE 1 TABLET(25 [...] with Dr. Harvey Gottlieb who is his system safety engineer at [facility]. His previous pulmonary workup included alpha [...] with Dr. Harvey Gottlieb who is his system safety engineer at [facility]. His previous pulmonary workup included alpha [...] with Dr. Harvey Gottlieb who is his system safety engineer at [facility]. 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 ID was consulted for MAC and patient was started on triple therapy for this 06/04. CT chest did show basilar consolidation suggestive of aspiration +/- pneumonia and PNA PCR + pseudomonas Since arrival to [facility], he has been on 3 L [...] with Dr. Harvey Gottlieb who is his system safety engineer at [facility]. His previous pulmonary workup included alpha [...] GERD, depression, BPH who was transferred to [facility] from [facility] 06/04 for further management of PNA [...] with Dr. Adams who communicated that outpatient system safety engineer has done immunoglobulin levels, and patient has [...] of COPD exacerbation/pneumonia/brochiectasis exacerbation. Since arrival to [facility], he has been on 3 L [...] Plan (06/04/2025 3:59 AM CDT): Transferred from [facility] for pulm and ID evaluation of recurrent bacterial PNA and MAC infection. 11 episodes of PNA requiring abx therapy in past two years. Hx of COPD on baseline 4L NC reported. 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 ID was consulted for MAC and patient was started on triple therapy for this 06/04. CT chest did show basilar consolidation suggestive of aspiration +/- pneumonia and PNA PCR + pseudomonas Since arrival to [facility], he has been on 3 L [...] GERD, depression, BPH who was transferred to [facility] from [facility] 06/04 for further management of PNA [...] with Dr. Adams who communicated that outpatient system safety engineer has done immunoglobulin levels, and patient has [...] of COPD exacerbation/pneumonia/brochiectasis exacerbation. Since arrival to [facility], he has been on 3 L [...] Plan (06/04/2025 3:59 AM CDT): Transferred from [facility] for pulm and ID evaluation of recurrent bacterial PNA and MAC infection. 11 episodes of PNA requiring abx therapy in past two years. Hx of COPD on baseline 4L NC reported. MAC infection on recent sputum cultures, evaluated by ID here at [facility] and recommended starting rifabutin 300mg daily, [...] - chest xray, defer further imaging until alliance consultant recs to avoid unnecessary repeat radiation [...] with Dr. Harvey Gottlieb who is his system safety engineer at [facility]. His previous pulmonary workup included alpha [...] with Dr. Harvey Gottlieb who is his system safety engineer at [facility]. His previous pulmonary workup included alpha [...] with Dr. Harvey Gottlieb who is his system safety engineer at [facility]. 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 ID was consulted for MAC and patient was started on triple therapy for this 06/04. CT chest did show basilar consolidation suggestive of aspiration +/- pneumonia and PNA PCR + pseudomonas Since arrival to [facility], he has been on 3 L [...] GERD, depression, BPH who was transferred to [facility] from [facility] 06/04 for further management of PNA [...] with Dr. Adams who communicated that outpatient system safety engineer has done immunoglobulin levels, and patient has [...] of COPD exacerbation/pneumonia/brochiectasis exacerbation. Since arrival to [facility], he has been on 3 L [...] Plan (06/04/2025 3:59 AM CDT): Transferred from [facility] for pulm and ID evaluation of recurrent bacterial PNA and MAC infection. 11 episodes of PNA requiring abx therapy in past two years. Hx of COPD on baseline 4L NC reported. MAC infection on recent sputum cultures, evaluated by ID here at [facility] and recommended starting rifabutin 300mg daily, [...] - chest xray, defer further imaging until alliance consultant recs to avoid unnecessary repeat radiation [...] DAYLIN. Follows with Dr. Clemons at the [facility] in [place], [place]. 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 Follows with Dr. Clemons at the [facility] in [place], [place]. 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 Follows with Dr. Clemons at the [facility] in [place], [place]. Assessment & Plan (06/04/2025 3:59 AM [...] with Dr. Harvey Gottlieb who is his system safety engineer at [facility]. His previous pulmonary workup included alpha [...] Plan (06/04/2025 3:59 AM CDT): Transferred from [facility] for pulm and ID evaluation of recurrent bacterial PNA and MAC infection. 11 episodes of PNA requiring abx therapy in past two years. Hx of COPD on baseline 4L NC reported. MAC infection on recent sputum cultures, evaluated by ID here at [facility] and recommended starting rifabutin 300mg daily, [...] - chest xray, defer further imaging until alliance consultant recs to avoid unnecessary repeat radiation [...] and go back to home inhaler. - ECONOMICS TEACHER evaluation - Will f/u ANCA. - Will [...] valve, BID vest therapy and DuoNebs. - ECONOMICS TEACHER evaluation - Continue current antibiotics (meropenem, azithro) [...] Description 06/30/2025 Telephone [facility] [address] [place] [phone] Alyssa Chen 06/26/2025 SHOP/CHAP Subsequent Outreach [facility] OP CASE MANAGEMENT [address] [place] [address] Yarelis Rachel, FRENCH COMBER 06/21/2025 Telephone [facility] [address] [place] [phone] Gladys Larson, SPECIALIST EMPLOYEE LABOR RELATIONS 06/20/2025 Telephone [facility] [address] [place] [phone] Alyssa Chen 06/19/2025 SHOP/CHAP Subsequent Outreach [facility] OP CASE MANAGEMENT [address] [place] [address] Yarelis Rachel, FRENCH COMBER 06/16/2025 SHOP/CHAP Subsequent Outreach [facility] OP CASE MANAGEMENT [address] [place] [address] Yarelis Rachel, FRENCH COMBER 06/15/2025 Documentation Internal Medicine John Guzmán MD Transfer Notification 06/15/2025 SHOP/CHAP Subsequent Outreach [facility] OP CASE MANAGEMENT [address] [place] [address] Yarelis Rachel, FRENCH COMBER 06/15/2025 Telephone [facility] [address] [place] [phone] Daniella Leach 06/15/2025 Telephone [facility] [address] [place] [phone] Alyssa Chen 06/13/2025 Telephone [facility] [address] [place] [phone] Alyssa Chen 06/08/2025 SHOP/CHAP Initial Outreach [facility] OP CASE MANAGEMENT [address] [place] [address] Yarelis Rachel, FRENCH COMBER 06/08/2025 Telephone [facility] Home Care Services [address] [place] [address] [phone] Lindsay Quiroz 06/08/2025 SHOP/CHAP Initial Eligibility Review [facility] OP CASE MANAGEMENT [address] [place] [address] Yarelis Rachel, FRENCH COMBER 06/07/2025 Telephone [facility] Home Care Services [address] [place] [address] Lindsay Quiroz 06/07/2025 Telephone [facility] Home Care Services [address] [place] [phone] Lindsay Quiroz 06/07/2025 Orders Only [facility] Scheduling [address] [place] [phone] Camilo Shi MD Shortness of breath (Primary Dx) 06/06/2025 3:30 PM CDT - 06/06/2025 11:59 PM CDT Hospital Encounter [facility] [address] [place] [address] Discharge Disposition: Discharge to home or self care 06/04/2025 1:12 AM CDT - 06/07/2025 3:09 PM CDT Hospital Encounter [address] [phone] Lukas Paredes MD Kocak, Keith Coreas MD [place], MD Tomer Marina, Dianna Flores MD Acute on chronic hypoxic respiratory failure (HCC) (Primary Dx) Discharge Disposition: Discharge to home, home health skilled care 06/02/2025 Telephone [facility] Medicine Infectious Diseases [address] [place] [phone] Enma Tate RMA 06/02/2025 Telephone [facility] Medicine Infectious Diseases [address] [place] [phone] Alyssa Chen 05/30/2025 Documentation Internal Medicine Lukas Paredes MD 05/30/2025 Telephone [facility] Medicine Infectious Diseases [address] [place] [address], [place] [phone] Alyssa Chen 05/30/2025 Telephone [facility] Medicine Infectious Diseases [address] [phone] Enma Tate CAMDENGian from Last 3 Months Surgical History Surgery [...] drink = 0.6 oz pur e alcohol) [facility] Utilities Answer Date Recorded In the [...] often do you attend chur ch or religion services? Never 06/08/2025 Do you belong to any clubs o r organizations such as cheondoism groups, unions, fraternal or athletic groups, or [...] [facility] time in the [facility], were you homeless or living in a senior living (including now)? No 06/08/2025 Personal Safety Answer Date Recorded Have you ever been in or are you currently in a harmful physical or emotional relationship or is someone making you feel afraid or unsafe? Denies 06/04/2025 Sex and Gender Information Value Date Recorded Sex Assigned at Not on file Legal Sex Male 9:37 AM BOTANY TEACHER Gender Identity Male 11/26/2019 3:10 PM BOTANY TEACHER Sexual Orientation Not on file Obstetrics History [...] VIDEO IP Routine 06/06/2025 3:40 PM CDT ECONOMICS TEACHER EVALUATE AND TREAT VIDEOFLUOROSCOPIC SWALLOW STUDY Routine 06/06/2025 3:30 PM CDT ECONOMICS TEACHER EVALUATE AND TREAT Routine 3:30 PM CDT ECONOMICS TEACHER EVALUATE AND TREAT Routine 3:30 PM CDT [...] AUREUS) CULTURE Routine 06/04/2025 2:53 AM CDT from Last 3 Months Results * eGFR (06/06/2025 9:15 PM CDT) [facility] eGFR 75 >=60 mL/min/1. 73 m2 [...] MD LAB BLOOD ORDERABLES Final Resu lt [facility] Department [place] [address] * (ABNORMAL) Differential, auto (06/06/2025 9:15 PM CDT) Neutrophil abs 5.92 1.50 - 6.50 K/cumm Imm gran abs 0.14(H) 0.00 - 0.10 K/cumm [facility] Lymphocyte abs 1.20 0.80 - 3.30 K/cumm [facility] Monocyte abs 1.06(H) 0.20 - 0.80 K/cumm [facility] Eosinophil abs 0.40 0.00 - 0.50 K/cumm [facility] Basophil abs 0.03 0.00 - 0.10 K/cumm [facility] Neutrophil pct 67.7 % [facility] Comment: Interpretive Data Percent cell count reference ranges are not reported, since discordance with absolute values may lead to misinterpretation of CBC data. Current Interpretive Data was last revised on 2018. Imm gran pct 1.6 % [facility] Comment: Interpretive Data Percent cell count reference ranges are not reported, since discordance with absolute values may lead to misinterpretation of CBC data. Current Interpretive Data was last revised on 2018. Lymphocyte pct 13.7 % [facility] Comment: Interpretive Data Percent cell count reference ranges are not reported, since discordance with absolute values may lead to misinterpretation of CBC data. Current Interpretive Data was last revised on 2018. Monocyte pct 12.1 % [facility] Comment: Interpretive Data Percent cell count reference ranges are not reported, since discordance with absolute values may lead to misinterpretation of CBC data. Current Interpretive Data was last revised on 2018. Eosinophil pct 4.6 % [facility] Comment: Interpretive Data Percent cell count reference ranges are not reported, since discordance with absolute values may lead to misinterpretation of CBC data. Current Interpretive Data was last revised on 2018. Basophil pct 0.3 % [facility] Comment: Interpretive Data Percent cell count reference ranges are not reported, since discordance with absolute values may lead to misinterpretation of CBC data. Current Interpretive Data was last revised on 2018. Blood 06/06/2025 9:15 PM CDT 06/06/2025 10:33 PM CDT us Dianna Root MD LAB BLOOD ORDERABLES Final Resu lt [facility] Department [place] [address] * (ABNORMAL) CBC with auto differential (06/06/2025 9:15 PM CDT) WBC 8.75 3.80 - 9.90 K/cumm Hgb 8.9(L) 13.0 - 17.5 g/dL [facility] Hct 28.3(L) 38.9 - 50.3 % [facility] Plt 263 150 - 400 K/cumm [facility] MPV 10.8 9.1 - 12.3 fL [facility] RBC 3.18(L) 4.30 - 5.80 M/cumm [facility] MCV 89.0 81.3 - 96.4 fL [facility] MCH 28.0 27.1 - 33.3 pg [facility] MCHC 31.4(L) 32.3 - 35.7 g/dL [facility] RDW CV 15.0(H) 11.1 - 14.9 % [facility] RDW SD 48.6(H) 35.7 - 48.1 fL [facility] NRBC abs 0.00 0.00 - 0.01 K/cumm [facility] Blood 06/06/2025 9:15 PM CDT 06/06/2025 10:33 PM CDT us Dianna Root MD LAB BLOOD ORDERABLES Final Resu lt Performing Organization Address [facility] Co de Phone Number [facility] [employer] [place], [place] [phone] * (ABNORMAL) Protime-INR (06/06/2025 9:15 PM CDT) PT 17.4(H) 9.7 - 13.0 sec INR 1.60(H) 0.90 - 1.20 [facility] Comment: Interpretive data Oral anticoagulant therapeutic ranges: Venous thromboembolism prophylaxis or treatment: 2.0-3.0 CARDIOLOGY Standard range: 2.0-3.0 High-intensity range: 2.5-3.5 Refer to indication-specific guidelines for appropriate target ranges for prosthetic heart valve replacement. Current interpretive data was last revised on 2019. Blood 06/06/2025 9:15 PM CDT 06/06/2025 10:36 PM CDT us Dianna Root MD LAB BLOOD ORDERABLES Final Resu lt [facility] [place] [address] * (ABNORMAL) Comprehensive metabolic panel (06/06/2025 9:15 PM CDT) Sodium 139 135 - 145 mmol/L Potassium, pl 4.7 3.3 - 4.9 mmol/L [facility] Chloride 96(L) 97 - 110 mmol/L [facility] CO2 35(H) 22 - 32 mmol/L [facility] Anion gap 8 2 - 15 mmol/L [facility] BUN 27(H) 6 - 25 mg/dL [facility] Creatinine 1.01 0.80 - 1.30 mg/dL [facility] Glucose 103 70 - 199 mg/dL [facility] Comment: Interpretive Data Fasting glucose >/= 126 [...] 2022. Calcium 9.6 8.5 - 10.3 mg/dL [facility] Bilirubin, total 0.3 0.1 - 1.2 mg/dL [facility] Protein, pl 6.8 6.5 - 8.5 g/dL [facility] Albumin 3.2(L) 3.5 - 5.0 g/dL [facility] Alk phos 194(H) 40 - 130 Units/L [facility] ALT 23 7 - 55 Units/L [facility] AST 34 10 - 50 Units/L [facility] Blood 06/06/2025 9:15 PM CDT 06/06/2025 10:33 PM CDT us Dianna Root MD LAB BLOOD ORDERABLES Final Resu lt [facility] [place] [address] * [place] Modified Barium Swallow W Video [...] agrees with it. Electronically signed by: Catrachita Kaila Katz, M.D. us Lukas Paredes MD IMG FLUOROSCOPY PROCEDURE S Final Result * ECONOMICS TEACHER Evaluate and Treat (VFSS) (06/06/2025 3:30 PM CDT) Narrative Taisha Auguste, ECONOMICS TEACHER - 06/06/2025 3:30 PM CDT Taisha Auguste SLP 06/06/2025 4:33 PM Speech-Language Pathology: Videofluoroscopic Study of Swallow (VFSS/MBS) HPI/PMH 80 y.o. 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 Plan ECONOMICS TEACHER Frequency of Services during current admission: Discharge from this Service ECONOMICS TEACHER Recommendation (Add'l Services): No further ECONOMICS TEACHER indicated Next Visit Plan: No further ST warranted Additional Referrals: N/A Discharge Summary Statement If this is the last swallow therapy visit, this serves as the discharge summary. us Lukas Paredes MD ECONOMICS TEACHER ORDERABLES Final Res ult * ECONOMICS TEACHER Evaluation and Treatment (06/06/2025 3:30 PM CDT) Narrative Taisha Auguste SLP - 06/06/2025 3:30 PM CDT Taisha Auguste SLP 06/06/2025 4:33 PM Speech-Language Pathology: Videofluoroscopic Study of Swallow (VFSS/MBS) HPI/PMH 80 y.o. 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 Plan ECONOMICS TEACHER Frequency of Services during current admission: Discharge from this Service ECONOMICS TEACHER Recommendation (Add'l Services): No further ECONOMICS TEACHER indicated Next Visit Plan: No further ST warranted Additional Referrals: N/A Discharge Summary Statement If this is the last swallow therapy visit, this serves as the discharge summary. Lukas Paredes MD ECONOMICS TEACHER ORDERABLES Final Res ult * ECONOMICS TEACHER Evaluation and Treatment (06/06/2025 3:30 PM CDT) Narrative Taisha Auguste SLP - 06/06/2025 3:30 PM CDT Taisha Auguste SLP 06/06/2025 4:33 PM Speech-Language Pathology: Videofluoroscopic Study of Swallow (VFSS/MBS) HPI/PMH 80 y.o. 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 Plan ECONOMICS TEACHER Frequency of Services during current admission: Discharge from this Service ECONOMICS TEACHER Recommendation (Add'l Services): No further ECONOMICS TEACHER indicated Next Visit Plan: No further ST warranted Additional Referrals: N/A Discharge Summary Statement If this is the last swallow therapy visit, this serves as the discharge summary. us Keith Alexander MD ECONOMICS TEACHER ORDERABLES Final Resu lt * TRANSTHORACIC ECHO (TTE) COMPLETE W DOPPLER/CF W CONTRAST (06/06/2025 12:04 PM CDT) EF Mod BP 55 % CONS SCIMAGE Anatomical Region Laterality Modality Ultrasound 06/06/2025 11:1 7 AM CDT Narrative 06/06/2025 1:37 PM CDT [facility] [place] [address] Transthoracic Echocardiographic Report Patient Name: ELMER LÓPEZ R : 1945 (80y 3m) Gender: M Study Date: 06/06/2025 11:17:38 AM Ht(Inch): 71 Wt(Lb): 169.97 BSA: 1.97 Senior Back End Java Developer: Estrellita Carrero RDCS Location: [id number] Order Provider: DIANNA ROOT Heart Rate: 80 [...] Procedure Note Nava Morales MD - 06/06/2025 [facility] [address] Transthoracic Echocardiographic Report Patient Name: ELMER LÓPEZ R : 1945 (80y 3m) Gender: M Study Date: 06/06/2025 11:17:38 AM Ht(Inch): 71 Wt(Lb): 169.97 BSA: 1.97 Senior Back End Java Developer: Estrellita Carrero RDCS Location: [id number] Order Provider:DIANNA ROOT Heart Rate: 80 BMI: [...] MD CV ECHO PROCEDURES Final Result * Mycobacteriology (AFB) culture and acid-fast stain Sputum, induced Lung (06/06/2025 6:02 AM CDT) Direct Specimen Exam Stain: No Acid-fast bacilli seen Report Final Report: No growth of acid-fast bacilli [facility] Sputum, induced (Lung) 06/06/2025 6:02 AM CDT 06/06/2025 7:53 AM CDT Narrative [facility] - 08/07/2025 8:03 AM CDT Testing performed by [facility] ([phone]). Keith Alexander MD LAB MICROBIOLOGY - GENERAL ORDERABLES Final Result [facility] Department [place] [address] * eGFR (06/05/2025 10:58 PM CDT) eGFR [...] 8 PM CDT 06/06/2025 12:38 AM CDT us Dianna Root MD LAB BLOOD ORDERABLES Final Resu lt [facility] [place] [address] * (ABNORMAL) Differential, auto (06/05/2025 10:58 PM CDT) Neutrophil abs 4.68 1.50 - 6.50 K/cumm Imm gran abs 0.08 0.00 - 0.10 K/cumm [facility] Lymphocyte abs 1.24 0.80 - 3.30 [facility] Monocyte abs 0.96(H) 0.20 - 0.80 K/cumm [facility] Eosinophil abs 0.50 0.00 - 0.50 K/cumm [facility] Basophil abs 0.03 0.00 - 0.10 K/cumm [facility] Neutrophil pct 62.4 % [facility] Comment: Interpretive Data Percent cell count reference ranges are not reported, since discordance with absolute values may lead to misinterpretation of CBC data. Current Interpretive Data was last revised on 2018. Imm gran pct 1.1 % [facility] Comment: Interpretive Data Percent cell count reference ranges are not reported, since discordance with absolute values may lead to misinterpretation of CBC data. Current Interpretive Data was last revised on 2018. Lymphocyte pct 16.6 % [facility] Comment: Interpretive Data Percent cell count reference ranges are not reported, since discordance with absolute values may lead to misinterpretation of CBC data. Current Interpretive Data was last revised on 2018. Monocyte pct 12.8 % [facility] Comment: Interpretive Data Percent cell count reference ranges are not reported, since discordance with absolute values may lead to misinterpretation of CBC data. Current Interpretive Data was last revised on 2018. Eosinophil pct 6.7 % [facility] Comment: Interpretive Data Percent cell count reference ranges are not reported, since discordance with absolute values may lead to misinterpretation of CBC data. Current Interpretive Data was last revised on 2018. Basophil pct 0.4 % [facility] Comment: Interpretive Data Percent cell count reference ranges are not reported, since discordance with absolute values may lead to misinterpretation of CBC data. Current Interpretive Data was last revised on 2018. Blood 06/05/2025 10:5 8 PM CDT 06/06/2025 12:50 AM CDT Dianna Root MD LAB BLOOD ORDERABLES Final Resu lt Performing Organization Address City/[facility]/ZIP Co de Phone Number [facility] [place] [address] * (ABNORMAL) CBC with auto differential (06/05/2025 10:58 PM CDT) WBC 7.49 3.80 - 9.90 K/cumm Hgb 8.4(L) 13.0 - 17.5 g/dL [facility] Hct 26.6(L) 38.9 - 50.3 % [facility] Plt 233 150 - 400 K/cumm [facility] MPV 10.9 9.1 - 12.3 fL [facility] RBC 2.93(L) 4.30 - 5.80 M/cumm [facility] MCV 90.8 81.3 - 96.4 fL [facility] MCH 28.7 27.1 - 33.3 pg [facility] MCHC 31.6(L) 32.3 - 35.7 g/dL [facility] RDW CV 15.3(H) 11.1 - 14.9 % [facility] RDW SD 51.3(H) 35.7 - 48.1 fL [facility] NRBC abs 0.00 0.00 - 0.01 K/cumm [facility] Blood 06/05/2025 10:5 8 PM CDT 06/06/2025 12:50 AM CDT Dianna Root MD LAB BLOOD ORDERABLES Final Resu lt [facility] [place] [address] * (ABNORMAL) Protime-INR (06/05/2025 10:58 PM CDT) PT 18.5(H) 9.7 - 13.0 sec INR 1.69(H) 0.90 - 1.20 [facility] Comment: Interpretive data Oral anticoagulant therapeutic ranges: Venous thromboembolism prophylaxis or treatment: 2.0-3.0 CARDIOLOGY Standard range: 2.0-3.0 High-intensity range: 2.5-3.5 Refer to indication-specific guidelines for appropriate target ranges for prosthetic heart valve replacement. Current interpretive data was last revised on 2019. Blood 06/05/2025 10:5 8 PM CDT 06/06/2025 12:58 AM CDT Dianna Root MD LAB BLOOD ORDERABLES Final Resu lt [facility] [place] [address] * (ABNORMAL) Comprehensive metabolic panel (06/05/2025 10:58 PM CDT) Pathologist [facility] Sodium 138 135 - 145 mmol/L Potassium, pl 4.4 3.3 - 4.9 mmol/L [facility] Chloride 98 97 - 110 mmol/L [facility] CO2 32 22 - 32 mmol/L [facility] Anion gap 8 2 - 15 mmol/L [facility] BUN 22 6 - 25 mg/dL [facility] Creatinine 1.02 0.80 - 1.30 mg/dL [facility] Glucose 107 70 - 199 mg/dL [facility] Comment: Interpretive Data Fasting glucose >/= 126 [...] 2022. Calcium 9.0 8.5 - 10.3 mg/dL [facility] Bilirubin, total 0.2 0.1 - 1.2 mg/dL [facility] Protein, pl 6.2(L) 6.5 - 8.5 g/dL [facility] Albumin 2.9(L) 3.5 - 5.0 g/dL [facility] Alk phos 192(H) 40 - 130 Units/L [facility] ALT 20 7 - 55 Units/L [facility] AST 38 10 - 50 Units/L [facility] Blood 06/05/2025 10:5 8 PM CDT 06/06/2025 12:38 AM CDT Dianna Root MD LAB BLOOD ORDERABLES Final Resu lt [facility] [place] [address] * Pneumonia PCR Sputum, induced (06/05/2025 4:53 AM CDT) C. pneumoniae DNA Not Detected Not Detected Legionella pneumophila DNA Not Detected Not Detected [facility] M. pneumoniae DNA Not Detected Not Detected [facility] Adenovirus DNA Not Detected Not Detected [facility] Coronavirus (229E, OC43, HKU1, NL63) RNA Not Detected Not Detected [facility] Metapneumovirus RNA Not Detected Not Detected [facility] Rhinovirus/Enterov irus RNA Not Detected Not Detected [facility] Influenza A RNA Not Detected Not Detected [facility] Influenza B RNA Not Detected Not Detected [facility] Parainfluenza virus (1-4) RNA Not Detected Not Detected [facility] RSV RNA Not Detected Not Detected [facility] Sputum, induced 06/05/2025 4 :53 AM CDT 06/05/2025 7:31 AM CDT Narrative [facility] - 06/05/2025 8:59 AM CDT The [...] of this assay have been determined by [facility]. Current interpretive data was last revised on 2025. Keith Alexander MD LAB MICROBIOLOGY - GENERAL ORDERABLES Final Result [facility] [place] [address] * (ABNORMAL) Pneumonia PCR with aerobic culture and Gram stain Sputum, induced (06/05/2025 4:53 AM CDT) Direct Specimen Exam Molecular Analysis: 10^6 copies/mL Pseudomonas aeruginosa Correlation of molecular analysis with final culture results is recommended. Direct Specimen Exam Stain: Moderate polymorphonuclear leukocytes seen. Few squamous epithelial cells seen. Few mixed bacterial anahi seen on Gram stain. [facility] Report Final Report: Growth indicates upper respiratory anahi. (.) [facility] Organism GROWTH INDICATES UPPER RESPIRATORY ANAHI. [facility] Sputum, induced 06/05/2025 4 :53 AM CDT 06/05/2025 6:28 AM CDT Narrative [facility] - 06/07/2025 1:16 PM CDT When rapid molecular testing results are reported, testing completed using the 3d[employer] FilmArray Pneumonia Panel. This molecular assay detects: [...] performance characteristics have been confirmed by the [facility]. The performance of the FilmArray Pneumonia Panel has not been established for monitoring treatment of infection and bacterial nucleic acids may persist independent of organism viability. Keith Alexander MD LAB MICROBIOLOGY - GENERAL ORDERABLES Final Result [facility] [place] [address] * Mycobacterium tuberculosis PCR Sputum, induced (06/05/2025 4:53 AM CDT) Report Final Report: Target not detected Organism TARGET NOT DETECTED [facility] Sputum, induced 06/05/2025 4 :53 AM CDT 06/05/2025 6:28 AM CDT Narrative [facility] - 06/05/2025 1:24 PM CDT 1. Nucleic acid amplification for detection of Mycobacterium tuberculosis complex is performed using the [employer] GeneXpert MTB/RIF assay. This assay has been approved by the [place] Food and Drug administration for detection of M. tuberculosis in sputum samples. The performance characteristics of this test have been verified by the [facility] laboratory for sputum samples and [...] LAB MICROBIOLOGY - GENERAL ORDERABLES Final Result [facility] [place] [address] * Mycobacteriology (AFB) culture and acid-fast stain Sputum, induced Lung (06/05/2025 4:53 AM CDT) Direct Specimen Exam Stain: No Acid-fast bacilli seen Report Final Report: No growth of acid-fast bacilli [facility] Sputum, induced (Lung) 06/05/2025 4:53 AM CDT 06/05/2025 6:28 AM CDT Narrative [facility] - 07/31/2025 1:27 PM CDT Testing performed by [facility] ([phone]). Keith Alexander MD LAB MICROBIOLOGY - GENERAL ORDERABLES Final Result Performing Organization Address [facility] Co de Phone Number [facility] [place] [address] * Infection Prevention MRSA Only (Staphylococcus aureus) Culture Nasal (06/05/2025 4:50 AM CDT) Report Final Report: Negative Nasal 06/05/2025 4:50 AM CDT 06/05/2025 6:40 AM CDT Narrative [facility] 06/06/2025 8:37 AM CDT Testing performed by [facility] ([phone]). Keith Alexander MD LAB MICROBIOLOGY - GENERAL ORDERABLES Final Result Performing Organization Address [facility] de Phone Number [facility] [place] [address] * TERRA ab ql w/rflx to TERRA [...] BLOOD ORDERABLES Final Result Performing Organization Address [facility] Co de Phone Number [facility] [place] [address] * eGFR (06/04/2025 10:45 PM CDT) Pathologist [facility] eGFR 71 >=60 mL/min/1. 73 m2 Comment: [...] MD LAB BLOOD ORDERABLES Final Resu lt [facility] [place] [address] * (ABNORMAL) Differential, auto (06/04/2025 10:45 PM CDT) Pathologist [facility] Neutrophil abs 6.47 1.50 - 6.50 K/cumm Imm gran abs 0.08 0.00 - 0.10 K/cumm [facility] Lymphocyte abs 0.89 0.80 - 3.30 K/cumm [facility] Monocyte abs 1.04(H) 0.20 - 0.80 K/cumm [facility] Eosinophil abs 0.38 0.00 - 0.50 K/cumm [facility] Basophil abs 0.03 0.00 - 0.10 K/cumm [facility] Neutrophil pct 72.8 % [facility] Comment: Interpretive Data Percent cell count reference ranges are not reported, since discordance with absolute values may lead to misinterpretation of CBC data. Current Interpretive Data was last revised on 2018. Imm gran pct 0.9 % [facility] Comment: Interpretive Data Percent cell count reference ranges are not reported, since discordance with absolute values may lead to misinterpretation of CBC data. Current Interpretive Data was last revised on 2018. Lymphocyte pct 10.0 % [facility] Comment: Interpretive Data Percent cell count reference ranges are not reported, since discordance with absolute values may lead to misinterpretation of CBC data. Current Interpretive Data was last revised on 2018. Monocyte pct 11.7 % [facility] Comment: Interpretive Data Percent cell count reference ranges are not reported, since discordance with absolute values may lead to misinterpretation of CBC data. Current Interpretive Data was last revised on 2018. Eosinophil pct 4.3 % [facility] Comment: Interpretive Data Percent cell count reference ranges are not reported, since discordance with absolute values may lead to misinterpretation of CBC data. Current Interpretive Data was last revised on 2018. Basophil pct 0.3 % [facility] Comment: Interpretive Data Percent cell count reference ranges are not reported, since discordance with absolute values may lead to misinterpretation of CBC data. Current Interpretive Data was last revised on 2018. Blood 06/04/2025 10:4 5 PM CDT 06/05/2025 12:39 AM CDT us Dianna Root MD LAB BLOOD ORDERABLES Final Resu lt [facility] Department of Laboratories [place], [place] [id number] * (ABNORMAL) Iron profile w/ IBC (06/04/2025 10:45 PM CDT) Iron 24(L) 50 - 150 mcg/dL TIBC 171(L) 250 - 400 mcg/dL [facility] Transferrin saturation 14(L) 20 - 50 % [facility] Blood 06/04/2025 10:4 5 PM CDT 06/05/2025 12:38 AM CDT Keith Alexander MD LAB BLOOD ORDERABLES Final Result Performing Organization Address City/[facility] [place] [address] * HIV 1/2 Antibody plus p24 Antigen [...] GENERAL ORDERABLES Final Result Performing Organization Address [facility] [place] [address] * Anti-Neutrophilic Cytoplasmic Antibody (ANCA) with Reflex to MPO and PR3 Abs (06/04/2025 10:45 PM CDT) Pathologist [facility] ANCA Negative Blood 06/04/2025 10:4 5 PM CDT 06/05/2025 12:39 AM CDT Keith Alexander MD LAB BLOOD ORDERABLES Final Result Performing Organization Address City/[facility] Co de Phone Number [place] [address] * (ABNORMAL) CBC with auto differential (06/04/2025 10:45 PM CDT) [facility] WBC 8.89 3.80 - 9.90 K/cumm Hgb 9.0(L) 13.0 - 17.5 g/dL [facility] Hct 28.4(L) 38.9 - 50.3 % [facility] Plt 226 150 - 400 K/cumm [facility] MPV 10.9 9.1 - 12.3 fL [facility] RBC 3.14(L) 4.30 - 5.80 M/cumm [facility] MCV 90.4 81.3 - 96.4 fL [facility] MCH 28.7 27.1 - 33.3 pg [facility] MCHC 31.7(L) 32.3 - 35.7 g/dL [facility] RDW CV 15.2(H) 11.1 - 14.9 % [facility] RDW SD 50.3(H) 35.7 - 48.1 fL [facility] NRBC abs 0.00 0.00 - 0.01 K/cumm [facility] Blood 06/04/2025 10:4 5 PM CDT 06/05/2025 12:39 AM CDT us Dianna Root MD LAB BLOOD ORDERABLES Final Resu lt Performing Organization Address City/[facility]/ZIP Co de Phone Number [facility] [place] [address] * RPR Blood (06/04/2025 10:45 PM CDT) [facility] RPR Nonreactive Nonreactive Blood 06/04/2025 10:4 5 PM CDT 06/05/2025 12:39 AM CDT us Keith Alexander MD LAB MICROBIOLOGY - GENERAL ORDERABLES Final Result Performing Organization Address City/[facility]/ZIP Co de Phone Number [facility] [place] [address] * (ABNORMAL) Protime-INR (06/04/2025 10:45 PM CDT) [facility] PT 19.6(H) 9.7 - 13.0 sec INR 1.79(H) 0.90 - 1.20 [facility] Comment: Interpretive data Oral anticoagulant therapeutic ranges: Venous thromboembolism prophylaxis or treatment: 2.0-3.0 CARDIOLOGY Standard range: 2.0-3.0 High-intensity range: 2.5-3.5 Refer to indication-specific guidelines for appropriate target ranges for prosthetic heart valve replacement. Current interpretive data was last revised on 2019. Blood 06/04/2025 10:4 5 PM CDT 06/05/2025 12:45 AM CDT Dianna Root MD LAB BLOOD ORDERABLES Final Resu lt Performing Organization Address City/[facility]/ZIP Co de Phone Number [facility] [place] [address] * Rheumatoid factor (06/04/2025 10:45 PM CDT) [facility] Rheumatoid factor, quant 12.0 0.1 - 15.0 IUnits/mL Blood 06/04/2025 10:4 5 PM CDT 06/05/2025 12:38 AM CDT Keith Alexander MD LAB BLOOD ORDERABLES Final Result Performing Organization Address City/[facility]/ZIP Co de Phone Number [facility] [place] [address] * (ABNORMAL) Protein electrophoresis with reflex, serum with interpretation (06/04/2025 10:45 PM CDT) [facility] Protein, sr 6.0(L) 6.2 - 8.2 g/dL Albumin 2.5(L) 3.2 - 5.0 g/dL [facility] Alpha-1 globulin 0.7(H) 0.2 - 0.4 g/dL [facility] Alpha-2 globulin 1.2(H) 0.5 - 1.0 g/dL [facility] Beta-1 globulin 0.4 0.3 - 0.6 g/dL [facility] Beta-2 globulin 0.5 0.2 - 0.6 g/dL [facility] Gamma globulin 0.7 0.5 - 1.7 g/dL [facility] SPEP interp Please see comment [facility] Comment: No apparent monoclonal peak Reviewed and signed by Serenity Wiseman MD, PhD 06/06/2025 Blood 06/04/2025 10:4 5 PM CDT 06/05/2025 12:38 AM CDT Keith Alexander MD LAB BLOOD ORDERABLES Final Result Performing Organization Address City/[facility] Co de Phone Number [facility] Department [place] [address] * (ABNORMAL) Phosphorus (06/04/2025 10:45 PM CDT) Phosphorus, pl 2.2(L) 2.3 - 4.5 mg/dL Blood 06/04/2025 10:4 5 PM CDT 06/05/2025 12:38 AM CDT Dianna Root MD LAB BLOOD ORDERABLES Final Resu lt Performing Organization Address [facility] Co de Phone Number [facility] Department [place] [address] * Magnesium (06/04/2025 10:45 PM CDT) Magnesium 1.7 1.4 - 2.5 mg/dL Blood 06/04/2025 10:4 5 PM CDT 06/05/2025 12:38 AM CDT Dianna Root MD LAB BLOOD ORDERABLES Final Resu lt Performing Organization Address [facility] Co de Phone Number [facility] [place] [address] * Folate (06/04/2025 10:45 PM CDT) [facility] Folic acid 7.0 >=5.0 ng/mL Blood 06/04/2025 10:4 5 PM CDT 06/05/2025 12:38 AM CDT Keith Alexander MD LAB BLOOD [place] [address] * Ferritin (06/04/2025 10:45 PM CDT) [facility] Ferritin 269 30 - 400 ng/mL Blood 06/04/2025 10:4 5 PM CDT 06/05/2025 12:38 AM CDT Keith Alexander MD LAB BLOOD [place] [address] * Vitamin B12 (06/04/2025 10:45 PM CDT) [facility] Vitamin B12 491 230 - 1,250 pg/mL Blood 06/04/2025 10:4 5 PM CDT 06/05/2025 12:38 AM CDT Keith Alexander MD LAB BLOOD [place] [address] * (ABNORMAL) Comprehensive metabolic panel (06/04/2025 10:45 PM CDT) [facility] Sodium 138 135 - 145 mmol/L Potassium, pl 4.7 3.3 - 4.9 mmol/L [facility] Chloride 100 97 - 110 mmol/L [facility] CO2 31 22 - 32 mmol/L [facility] Anion gap 7 2 - 15 mmol/L [facility] BUN 21 6 - 25 mg/dL [facility] Creatinine 1.05 0.80 - 1.30 mg/dL [facility] Glucose 107 70 - 199 mg/dL [facility] Comment: Interpretive Data Fasting glucose >/= 126 [...] 2022. Calcium 9.3 8.5 - 10.3 mg/dL [facility] Bilirubin, total 0.2 0.1 - 1.2 mg/dL [facility] Protein, pl 6.7 6.5 - 8.5 g/dL [facility] Albumin 3.1(L) 3.5 - 5.0 g/dL [facility] Alk phos 222(H) 40 - 130 Units/L [facility] ALT 23 7 - 55 Units/L [facility] AST 44 10 - 50 Units/L [facility] Blood 06/04/2025 10:4 5 PM CDT 06/05/2025 12:38 AM CDT us Dianna Root MD LAB BLOOD ORDERABLES Final Resu lt [facility] [place] [address] * Histoplasma Antigen Urine (06/04/2025 6:49 PM CDT) Histo Ag Ur result None Detected None Detected Histo Ag Ur interp Negative Negative [facility] Comment: Result Interpretation: Reference interval: None Detected Results reported as ng/mL in 0.20 - 20.00 ng/mL range Results above 20.00 ng/mL are reported as 'Positive, Above the Limit of Quantification' Testing Performed by: [facility], [facility] [facility] [address]. This test was developed and its performance characteristics determined by [facility]. It has not been cleared or approved [...] LAB MICROBIOLOGY - GENERAL ORDERABLES Final Result [facility] [place] [address] * CT Chest High Resolution WO Contrast [...] 3:04 PM CDT 06/04/2025 3:19 PM CDT Sarah [facility] - 06/05/2025 4:35 PM CDT Testing performed by [facility] ([phone]). Keith Alexander MD LAB MICROBIOLOGY - GENERAL ORDERABLES Final Result [facility] [place] [address] * Coccidioides antibody screen w/reflex Blood (06/04/2025 10:50 AM CDT) Coccidioides ab screen, ser Reactive Negative [facility] Comment: Confirmatory testing by complement fixation and immunodiffusion has been ordered. ADDITIONAL INFORMATION This test has been modified from the employment legal assistant's instructions. Its performance characteristics were determined by [facility] in a manner consistent with CLIA requirements. This test has not been cleared or approved by the U.S. Food and Drug Administration. Test Performed by: [facility] [place] [address] Filter Cleaner: Angeli Harper Ph.D.; CLIA# [id number] Blood 06/04/2025 10:5 0 AM CDT 06/04/2025 12:31 PM CDT Keith Alexander MD LAB MICROBIOLOGY - GENERAL ORDERABLES Final Result Performing Organization Address [facility] de Phone Number [facility] [place] [address] [facility] * Histoplasma Antibody Blood (06/04/2025 10:50 AM CDT) Histoplasma Ab, yeast CF Negative Negative [facility] Histoplasma Ab, Immunodiffusion Negative Negative [facility] Comment: A negative complement fixation and immunodiffusion (CF/ID) result does not exclude the diagnosis of histoplasmosis. Repeat testing by CF/ID in 1-2 weeks if clinically indicated. Test Performed by: [facility] [place] [id number] Filter Cleaner: Angeli Harper Ph.D.; CLIA# [id number] Blood 06/04/2025 10:5 0 AM CDT 06/04/2025 1:57 PM CDT Keith Alexander MD LAB MICROBIOLOGY - GENERAL ORDERABLES Final Result Performing Organization Address [facility] de Phone Number [facility] [place] [address] [facility] * Blastomyces antibody, EIA, serum Blood (06/04/2025 10:50 AM CDT) Blastomyces Antibody Negative Negative [facility] Comment: A single negative result does not exclude the diagnosis of blastomycosis. Repeat testing on a new sample in 7-14 days if clinically indicated. Test Performed by: [place] [address] Filter Cleaner: Angeli Harper Ph.D.; CLIA# [id number] Blood 06/04/2025 10:5 0 AM CDT 06/04/2025 1:57 PM CDT Keith Alexander MD LAB MICROBIOLOGY - GENERAL ORDERABLES Final Result Performing Organization Address [facility] de Phone Number [facility] Department [place] [address] [facility] * Coccidioides antibodies (06/04/2025 10:50 AM CDT) Coccidioides ab comp fix Negative Negative [facility] Coccidioides IgG ImmDiff Negative Negative [facility] Coccidioides IgM ImmDiff Negative Negative [facility] Comment: The EIA may be reactive prior to complement fixation and immunodiffusion (CompF/ImmDiff), or may be falsely-reactive. Repeat testing by CompF/ImmDiff in 2-3 weeks if clinically indicated. Test Performed by: [place] [address] Filter Cleaner: Angeli Harper Ph.D.; CLIA# [id number] Blood 06/04/2025 10:5 0 AM CDT 06/04/2025 12:31 PM CDT Keith Alexander MD LAB BLOOD ORDERABLES Final Result Performing Organization Address City/[facility] Co de Phone Number [facility] Department [place] [address] [facility] * Cryptococcal Antigen, Serum Blood (06/04/2025 10:50 AM CDT) Pathologist [facility] Cryptococcus ag, Serum Negative Negative Comment: The cryptococcal antigen test was performed using the [employer] CrAg Lateral Flow Assay. This assay is [...] GENERAL ORDERABLES Final Result Performing Organization Address [facility] de Phone Number [facility] Department [place] [address] * Aspergillus galactomannan antigen Blood (06/04/2025 10:50 AM CDT) Pathologist [facility] Aspergillus galactomannan Ag <0.500 <0.5 Index [facility] Comment: ADDITIONAL INFORMATION This is a qualitative test and the resulted index value is not indicative of disease severity. Serial testing is recommended for patients at high risk for invasive aspergillosis. This assay was performed using the FDA-cleared [employer] Platelia Aspergillus Galactomannan EIA. Test Performed by: [facility] [address] [place] [address] Filter Cleaner: Angeli Harper Ph.D.; CLIA# [id number] Blood 06/04/2025 10:5 0 AM CDT 06/04/2025 12:42 PM CDT Keith Alexander MD LAB MICROBIOLOGY - GENERAL ORDERABLES Final Result Performing Organization Address [facility] de Phone Number [facility] Department [place] [address] [facility] * (ABNORMAL) Blood gas, venous (06/04/2025 10:50 AM CDT) pH, Venous 7.37 7.32 - 7.43 PCO2, Venous 55(H) 40 - 50 mmHg [facility] PO2, Venous 36 mmHg [facility] Comment: Interpretive Data No Reference Range Established Current Interpretive Data was last revised on 2018. HCO3 Venous, Calculated 33(H) 20 - 30 mmol/L [facility] BE, venous 7 mmol/L [facility] Comment: Interpretive Data No Reference Range Established Current Interpretive Data was last revised on 2018. Blood 06/04/2025 10:5 0 AM CDT 06/04/2025 12:25 PM CDT Keith Alexander MD LAB BLOOD ORDERABLES Final Result Performing Organization Address [facility] de Phone Number [facility] Department [place] [address] * XR Chest 1 View (06/04/2025 6:30 [...] LAB BLOOD ORDERABLES Final Resu lt ANGELLA BECK [facility] [place] [address] * (ABNORMAL) Differential, auto (06/04/2025 4:35 AM CDT) Neutrophil abs 6.28 1.50 - 6.50 K/cumm Imm gran abs 0.07 0.00 - 0.10 K/cumm [facility] Lymphocyte abs 0.88 0.80 - 3.30 K/cumm [facility] Monocyte abs 1.13(H) 0.20 - 0.80 K/cumm [facility] Eosinophil abs 0.47 0.00 - 0.50 K/cumm [facility] Basophil abs 0.02 0.00 - 0.10 K/cumm [facility] Neutrophil pct 71.0 % [facility] Comment: Interpretive Data Percent cell count reference ranges are not reported, since discordance with absolute values may lead to misinterpretation of CBC data. Current Interpretive Data was last revised on 2018. Imm gran pct 0.8 % [facility] Comment: Interpretive Data Percent cell count reference ranges are not reported, since discordance with absolute values may lead to misinterpretation of CBC data. Current Interpretive Data was last revised on 2018. Lymphocyte pct 9.9 % [facility] Comment: Interpretive Data Percent cell count reference ranges are not reported, since discordance with absolute values may lead to misinterpretation of CBC data. Current Interpretive Data was last revised on 2018. Monocyte pct 12.8 % [facility] Comment: Interpretive Data Percent cell count reference ranges are not reported, since discordance with absolute values may lead to misinterpretation of CBC data. Current Interpretive Data was last revised on 2018. Eosinophil pct 5.3 % [facility] Comment: Interpretive Data Percent cell count reference ranges are not reported, since discordance with absolute values may lead to misinterpretation of CBC data. Current Interpretive Data was last revised on 2018. Basophil pct 0.2 % [facility] Comment: Interpretive Data Percent cell count reference ranges are not reported, since discordance with absolute values may lead to misinterpretation of CBC data. Current Interpretive Data was last revised on 2018. Blood 06/04/2025 4:35 AM CDT 06/04/2025 5:02 AM CDT us Dianna Root MD LAB BLOOD ORDERABLES Final Resu lt [facility] Department [place] [address] * (ABNORMAL) Pro B-type natriuretic peptide (06/04/2025 [...] ORDERABLES Final Resu lt Performing Organization Address [facility]/ZIP Co de Phone Number [facility] [place] [address] * (ABNORMAL) CBC with auto differential (06/04/2025 4:35 AM CDT) Pathologist [facility] WBC 8.85 3.80 - 9.90 K/cumm Hgb 8.3(L) 13.0 - 17.5 g/dL [facility] Hct 26.7(L) 38.9 - 50.3 % [facility] Plt 219 150 - 400 K/cumm [facility] MPV 10.3 9.1 - 12.3 fL [facility] RBC 2.94(L) 4.30 - 5.80 M/cumm [facility] MCV 90.8 81.3 - 96.4 fL [facility] MCH 28.2 27.1 - 33.3 pg [facility] MCHC 31.1(L) 32.3 - 35.7 g/dL [facility] RDW CV 15.3(H) 11.1 - 14.9 % [facility] RDW SD 51.0(H) 35.7 - 48.1 fL [facility] NRBC abs 0.00 0.00 - 0.01 K/cumm [facility] Blood 06/04/2025 4:35 AM CDT 06/04/2025 5:02 AM CDT us Dianna Root MD LAB BLOOD ORDERABLES Final Resu lt [facility] [place] [address] * (ABNORMAL) Protime-INR (06/04/2025 4:35 AM CDT) PT 20.1(H) 9.7 - 13.0 sec INR 1.84(H) 0.90 - 1.20 [facility] Comment: Interpretive data Oral anticoagulant therapeutic ranges: Venous thromboembolism prophylaxis or treatment: 2.0-3.0 CARDIOLOGY Standard range: 2.0-3.0 High-intensity range: 2.5-3.5 Refer to indication-specific guidelines for appropriate target ranges for prosthetic heart valve replacement. Current interpretive data was last revised on 2019. Blood 06/04/2025 4:35 AM CDT 06/04/2025 5:06 AM CDT Dianna Root MD LAB BLOOD ORDERABLES Final Resu lt Performing Organization Address City/[facility] Co de Phone Number [place] [address] * Phosphorus (06/04/2025 4:35 AM CDT) Phosphorus, pl 2.6 2.3 - 4.5 mg/dL Blood 06/04/2025 4:35 AM CDT 06/04/2025 5:01 AM CDT Dianna Root MD LAB BLOOD ORDERABLES Final Resu lt Performing Organization Address [facility] Co de Phone Number [facility] [place] [address] * Magnesium (06/04/2025 4:35 AM CDT) Magnesium 1.8 1.4 - 2.5 mg/dL Blood 06/04/2025 4:35 AM CDT 06/04/2025 5:01 AM CDT Dianna Root MD LAB BLOOD ORDERABLES Final Resu lt Performing Organization Address [facility] Co de Phone Number [facility] [place] [address] * (ABNORMAL) Comprehensive metabolic panel (06/04/2025 4:35 AM CDT) Sodium 135 135 - 145 mmol/L Potassium, pl 4.4 3.3 - 4.9 mmol/L [facility] Chloride 99 97 - 110 mmol/L [facility] CO2 29 22 - 32 mmol/L [facility] Anion gap 7 2 - 15 mmol/L [facility] BUN 23 6 - 25 mg/dL [facility] Creatinine 1.19 0.80 - 1.30 mg/dL [facility] Glucose 109 70 - 199 mg/dL [facility] Comment: Interpretive Data Fasting glucose >/= 126 [...] 2022. Calcium 9.3 8.5 - 10.3 mg/dL [facility] Bilirubin, total 0.3 0.1 - 1.2 mg/dL [facility] Protein, pl 6.6 6.5 - 8.5 g/dL [facility] Albumin 2.9(L) 3.5 - 5.0 g/dL [facility] Alk phos 228(H) 40 - 130 Units/L [facility] ALT 20 7 - 55 Units/L [facility] AST 42 10 - 50 Units/L [facility] Blood 06/04/2025 4:35 AM CDT 06/04/2025 5:01 AM CDT us Dianna Root MD LAB BLOOD ORDERABLES Final Resu lt [facility] [place] [address] * Legionella antigen Urine (06/04/2025 3:22 AM CDT) [facility] Legionella Ag Negative Negative Comment: Interpretive Data This test detects only Legionella pneumophila serogroup 1 antigen. Testing performed by [facility] ([phone]). Current interpretive data was last revised on 2020. Urine 06/04/2025 3:22 AM CDT 06/04/2025 5:30 AM CDT Dianna Root MD LAB MICROBIOLOGY - GENERAL ORDE RABLES Final Result Performing Organization Address City/[facility]/ZIP Co de Phone Number [facility] [place] [address] * ECG 12 lead (06/04/2025 3:21 AM CDT) [facility] Ventricular Rate EKG/Min 74 BPM [facility] Atrial Rate [address] [facility] DE-Interval (MSEC) 196 ms [facility] QRS-Interval (MSEC) 114 ms [facility] QT-Interval (MSEC) [address] [facility] QTc [address] [facility] P [place] 34 degrees [facility] R [place] -19 degrees [facility] T [place] 16 degrees [facility] Diagnosis Normal sinus rhythm Incomplete right bundle branch block Borderline ECG No previous ECGs available Confirmed by SERENITY ARCHULETA M.D ([id number]) on 06/05/2025 8:59:[address] [facility] 06/04/2025 3:21 AM CDT 06/05/2025 8:59 AM CDT Dianna Root MD ECG ORDERABLES Final Result Performing Organization Address City/[facility]/ZIP Co de Phone Number [facility] * Respiratory pathogen panel Nasopharyngeal (06/04/2025 2:58 AM CDT) [facility] Influenza A RNA Not Detected Not Detected Influenza B RNA Not Detected Not Detected [facility] RSV RNA Not Detected Not Detected [facility] COVID-19 RNA Not Detected Not Detected [facility] Coronavirus 229E RNA Not Detected Not Detected [facility] Coronavirus HKU1 RNA Not Detected Not Detected [facility] Coronavirus NL63 RNA Not Detected Not Detected [facility] Coronavirus OC43 RNA Not Detected Not Detected [facility] Adenovirus DNA Not Detected Not Detected [facility] Metapneumovirus RNA Not Detected Not Detected [facility] Rhinovirus/Enterov irus RNA Not Detected Not Detected [facility] Parainfluenza 1 RNA Not Detected Not Detected [facility] Parainfluenza 2 RNA Not Detected Not Detected [facility] Parainfluenza 3 RNA Not Detected Not Detected [facility] Parainfluenza 4 RNA Not Detected Not Detected [facility] B. pertussis DNA Not Detected Not Detected [facility] B. parapertussis DNA Not Detected Not Detected [facility] C. pneumoniae DNA Not Detected Not Detected [facility] M. pneumoniae DNA Not Detected Not Detected [facility] Nasopharyngeal 06/04/2025 2: 58 AM CDT 06/04/2025 3:29 AM CDT Narrative [facility] - 06/04/2025 4:44 AM CDT Is the Patient experiencing symptoms consistent with COVID?->No Surveillance testing for transplant patient?->No Interpretive Data The [employer] FilmArray Respiratory Panel (RP2.1) assay is a [...] assay has FDA clearance for testing of [employer] swabs. The performance of additional specimen types has been assessed by the performing laboratory. The performance characteristics of this assay have been determined by [facility]. Current interpretive data was last revised on 22. us Dianna Root MD LAB MICROBIOLOGY - GENERAL [employer] Final Result Performing Organization Address City/[facility]/ZIP Co de Phone Number [facility] [place] [address] * MRSA Only (Staphylococcus aureus) Culture Nasal (06/04/2025 2:53 AM CDT) Report Final Report: Negative Nasal 06/04/2025 2:53 AM CDT 06/04/2025 3:29 AM CDT Narrative [facility] - 06/05/2025 6:58 AM CDT Testing performed by [facility] ([phone]). Dianna Root MD LAB MICROBIOLOGY - GENERAL ORDE RABLES Final Result [facility] [place] [address] from Last 3 Months Insurance Advance Directives For more information, please contact: [phone] * Full Code (Latest Code Status on File) Date Activated Date Inactivated Comments 06/04/2025 2:17 AM 06/07/2025 7:14 PM Care Teams Property Adjuster Relationship Specialty Start Date End Date Naveed Mcintosh MD PCP - General Family Medicine 10/07/19 Salas Gottlieb MD [id number] [place] [address] Referring Physician Critical Care Med 06/02/25
[2025-08-22] MEDS: LACTATED RINGERS 1,000 ML 999 ML IV CONT (21:54)
[2025-08-22 21:57] LABS: Add Urine Microscopic? YES; Appearance Urine Cloudy (Clear); Glucose Urine UA Negative (Negative); Leukocyte Esterase Ur 1+ LEU/UL (Negative); Need Manual Microscopic Reviewed; Nitrate Urine Positive (Negative); Non Pathogenic Casts 0-2; Specific Grav Ur 1.026 (1.001-1.035)
[2025-08-22 21:59] VITALS: BP 128/50; PULSE 71; RESP 16; O2SAT 100
--- NOTE | 2025-08-22 22:09 | ED.WEAKNESS ---
HPI - Weakness General Chief complaint: Weakness Stated complaint: TIRED, POSSIBLE NARCOTIC OD Time Seen by Provider: 08/22/25 20:18 History of Present Illness HPI Narrative: 80-year-old male with complex past medical history including mycoplasma avium pneumonia currently on longstanding antibiotics, recent admission to the hospital for shortness of breath. He has a history of CHF reduced ejection fraction, CKD, COPD chronically 5 L nasal cannula oxygen. History of remote polio. Patient presents to the emergency department for mental status changes and hypoxemia. Reported by nursing staff that patient was altered and lethargic throughout the day today, not getting up and doing his physical activities are going to eat anything. Patient normally is alert oriented x4 and conversational, ambulatory. Today he did not get out of bed and only responsive to his name. No traumatic injuries or falls reported. His found to be 75% on his oxygen. On arrival to the emergency department he is not tachycardic, tachypneic or hypoxic, is intermittently alert oriented, his son is present at bedside provides the majority of the collateral formation given patient's level of mentation. Son states that this is been a recurrent issue every few weeks with the patient where he gets transiently altered and they were not sure why. Son states that he gets admitted to the hospital with various infections and gets better after short course and gets discharged back to his facility where he spends time doing activities and acting appropriately. And he has sudden decline without any explanation. No history of dementia or strokes according to the family. Patient presently not able to provide collateral formation. skilled nursing report states that they given his morphine today which he takes regularly and thought that they may have contributed to the from some Narcan without any improvement in symptoms. Related Data Home Medications ?Medication ?Instructions ?Recorded ?Confirmed ?Last Taken ?Type esomeprazole magnesium 20 mg 20 mg PO DAILY 06/15/25 08/23/25 07/18/25 History capsule,delayed release ethambutol 400 mg tablet 1,200 mg PO DAILY 06/15/25 08/23/25 07/18/25 History tamsulosin 0.4 mg capsule 0.4 mg PO BID 06/15/25 08/23/25 07/18/25 History baclofen 10 mg tablet 10 mg PO Q8H PRN muscle spasm 07/29/25 08/23/25 Unknown History bisacodyl 10 mg rectal suppository 10 mg RECTAL DAILY PRN constipation 07/29/25 08/23/25 Unknown History cilcitriol capsule See Rx Instructions .Route 07/29/25 08/23/25 Unknown History .COMPLEX hypocalcemia magnesium hydroxide 400 mg/5 mL 30 ml PO HS PRN constipation 07/29/25 08/23/25 Unknown History oral suspension (Milk of Magnesia) metoprolol tartrate 50 mg tablet 50 mg PO HS 07/29/25 08/23/25 Unknown History (Lopressor) naloxone 4 mg/actuation nasal 4 mg intranasal Q2M 08/23/25 08/23/25 Unknown History spray (Narcan) Allergies Allergy/AdvReac Type Severity Reaction Status Date / Time clonazepam AdvReac Severe Drowsy Verified 08/22/25 20:21 roflumilast (From Daliresp) AdvReac Severe Diarrhea Verified 08/22/25 20:21 Review of Systems Review of Systems: As reviewed above in [facility] Past Medical History Medical History (Updated 08/23/25 @ 07:30 by Mushtaq Mason MD) Pneumonia Anxiety Physical deconditioning NSVT (nonsustained ventricular tachycardia) Dysfunction of left eustachian tube Leukocytosis Heart failure with mildly reduced ejection fraction Chronic pulmonary aspergillosis Major depressive disorder, recurrent, mild Left foot drop Chronic kidney disease, stage 3 Spinal stenosis, lumbar region without neurogenic claudication Ischemic cardiomyopathy Echocardiogram 09/2021: Mildly reduced left ventricular systolic function EF of 45-50%, grade 1 diastolic dysfunction, inferior wall inferior septal wall basal inferior wall and mid inferior lateral wall hypokinesis with mild left atrial and large SVT (supraventricular tachycardia) 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 History of tobacco use Polio (1951) Other chronic pain Aortic stenosis Mild - Echo 05/15/2022 NSTEMI (non-ST elevated myocardial infarction) (08/2019) Atherosclerotic heart disease of [place] coronary artery without angina pectoris Abdominal aortic aneurysm, without rupture Seen on CT scan on 02/09/2018 Restless legs syndrome Surgical History Surgical History History of tonsillectomy and adenoidectomy History of repair of rotator cuff bilateral History of colonoscopy with polypectomy History of bowel resection due to obstruction Presence of coronary angioplasty implant and graft History of coronary artery stent placement X2 History of mandibular surgery (1986) reconstructive surgery right mandible related to cancer Family History Family History Mother Diabetes mellitus Acute myocardial infarction Father Colon cancer COPD (chronic obstructive pulmonary disease) Sibling Colon cancer Acute myocardial infarction Lung cancer COPD (chronic obstructive pulmonary disease) Sibling COPD (chronic obstructive pulmonary disease) Sibling Congestive heart failure Sibling Dementia Social History Social History Social History: Surrogate medical decision maker: Yessi Morgan, daughter. Code status: Full code. But he states he would not want to be on a ventilator long-term have a tracheostomy or feeding tube. Smoking packs per day: 2 Smoking cigarettes per day: 40.0 Years smoked: 60 Smoking pack-years: 120.00 Smoking status: Former smoker Second hand tobacco smoke exposure: No Alcohol intake: never Substance use: never Substance use type: does not use Other substance usage details: quit alcohol in 2010 Last use: Last alcohol use 2010 Do You Feel Safe in your Home?: Yes Lack of Transportation: No Lack of Food: Never True Current Housing: I Have Housing Concerned About Future Housing: No Difficulty Paying Gas/Electric Bills: No Difficulty Paying for Meds: No Currently Unemployed: No Education: High School Diploma/GED Difficulty w/ Childcare or Family Care: No Living arrangements: with family Additional living arrangements comments: . Lives in [place] with son and [id number]. 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 Mucous membranes dry. NECK: Supple. CHEST: Coarse bibasilar breath sounds but no wheezing or tachypnea noted. Saturating 1 are present on his home 5 L oxygen HEART: [Regular rate and rhythm]. No murmur heard. [Normal peripheral pulses.] ABDOMEN: [Soft, nondistended], [nontender], [No rigidity or guarding] EXTREMITIES: Normal range of motion. [No edema.] SKIN: Warm, dry, no rash. NEURO: No obvious focal deficits, alert times 1 to his name presently PSYCH: [Normal mood and affect.] Course Vital Signs Vital signs: Vital Signs Temperature 36.4 C 08/22/25 20:08 Pulse Rate 64 08/22/25 20:08 Respiratory Rate 17 08/22/25 20:08 Blood Pressure 98/41 L 08/22/25 20:08 Pulse Oximetry 100 08/22/25 20:08 Oxygen Delivery Nasal Cannula 08/22/25 20:08 Oxygen Flow Rate 4 08/22/25 20:08 Temperature 36.8 C 08/23/25 03:42 Pulse Rate 72 08/23/25 06:00 Respiratory Rate 20 08/23/25 04:29 Blood Pressure 146/59 H 08/23/25 03:42 Pulse Oximetry 95 08/23/25 04:23 Oxygen Delivery Nasal Cannula 08/23/25 04:23 Oxygen Flow Rate 4 08/23/25 04:23 Fraction of Inspired Oxygen 36 08/23/25 04:23 MDM - Weakness MDM Narrative Medical decision making narrative: 80-year-old male with complex past medical history including mycoplasma avium pneumonia currently on longstanding antibiotics, recent admission to the hospital for shortness of breath. He has a history of CHF reduced ejection fraction, CKD, COPD chronically 5 L nasal cannula oxygen. History of remote polio. Patient presents to the emergency department for mental status changes and hypoxemia. Reported by nursing staff that patient was altered and lethargic throughout the day today, not getting up and doing his physical activities are going to eat anything. Patient normally is alert oriented x4 and conversational, ambulatory. Today he did not get out of bed and only responsive to his name. No traumatic injuries or falls reported. His found to be 75% on his oxygen. On arrival to the emergency department he is not tachycardic, tachypneic or hypoxic, is intermittently alert oriented, his son is present at bedside provides the majority of the collateral formation given patient's level of mentation. Son states that this is been a recurrent issue every few weeks with the patient where he gets transiently altered and they were not sure why. Son states that he gets admitted to the hospital with various infections and gets better after short course and gets discharged back to his facility where he spends time doing activities and acting appropriately. And he has sudden decline without any explanation. No history of dementia or strokes according to the family. Patient presently not able to provide collateral formation. skilled nursing report states that they given his morphine today which he takes regularly and thought that they may have contributed to the from some Narcan without any improvement in symptoms. Patient is only alert to his name presently, has some coarse bilateral breath sounds but no respiratory distress or wheezing. His vital signs are reassuring here slightly low blood pressure over 98/41. Responded to 1 L of fluids to 128/50. No tachycardia, hypoxemia on his home oxygen, fever. He has no focal deficits and seems to be moving all extremities. No traumatic injury findings. He has multiple reasons for encephalopathy including recent infection with mycoplasma avium, CO2 narcosis from CO2 retention and COPD flare, dehydration evident with dry mucous membranes, risk factors for potential stroke. Family states that this is a waxing and waning thing that occurs with the patient and have no explanation. CT of the head was ordered, laboratory studies and urinalysis obtained. Blood cultures obtained as well as a VBG. CT scan shows a slight leukocytosis of 11, hemoglobin 7.3 around his baseline. Normal platelet count. Electrolytes are chronically low but he also has acute kidney injury today. Given fluid resuscitation. Lactic acid negative. Normal glucose. Urinalysis without any significant signs of infection. X-ray shows unchanged opacities. CT thorax shows pneumonia. COPD and emphysema as well as pulmonary hypertension signs. CT of the head was unremarkable. Discussed the case with the hospitalist and patient was accepted to the IMU for continued treatment at this time. Started on previously recommended ciprofloxacin per ID documentation. Patient's family updated on plan and patient admitted at this time. Medical Records Attestation: I reviewed the patient's medical records. Lab Data Attestation: I reviewed the patient's lab results. 08/22/25 20:34 08/22/25 20:34 Labs: Lab Results 08/22/25 08/22/25 08/22/25 Range/Units 20:34 21:30 22:42 WBC 11.0 H (4.5-10.0) K/mm3 RBC 2.74 L (4.6-6.20) M/mm3 Hgb 7.3 L (14.0-18.0) g/dL Hct 24.3 L (42.0-52.0) % MCV 88.7 (80-100) fl MCH 26.6 (26-34) pg MCHC 30.0 L (32-36) g/dl RDW 17.0 H (11.5-14.5) % Plt Count 164 (150-375) k/mm3 MPV 11.7 H (7.4-10.4) fl Immature Gran % (Auto) 0.7 H (0-0.5) % Neut % (Auto) 83.2 H (45.5-73.1) % Lymph % (Auto) 5.3 L (18.3-44.2) % [place] % (Auto) 10.7 H (2.6-8.5) % Eos % (Auto) 0.0 (0-4.4) % Baso % (Auto) 0.1 L (0.2-1.2) % Lymph # (Auto) 0.58 L (0.9-3.2) K/mm3 [place] # (Auto) 1.2 H (0.1-0.6) K/mm3 Eos # (Auto) 0.0 (0-0.3) K/mm3 Baso # (Auto) 0.0 (0.0-0.1) K/mm3 Abs Immat Gran (auto) 0.08 H (0.00-0.031) K/mm3 Absolute Neuts (auto) 9.1 H (1.3-6.7) K/mm3 Absolute Nucleated RBC 0.000 (0.0-0.012) K/mm3 Nucleated RBC % 0.0 (0.0-0.2) % PT 23.6 H (11.1-14.7) Seconds INR 2.2 APTT 69.9 H (22.3-36.8) Seconds Sodium 130 L (137-145) mmol/L Potassium 4.1 (3.4-5.0) mmol/L Chloride 97 L (98-107) mmol/L Carbon Dioxide 28 (22-30) mmol/L Anion Gap 5 (4-12) mmol/L BUN 28 H (9-20) mg/dL Creatinine 1.39 H (0.7-1.3) mg/dL Estim Creat Clear Calc 36 ml/min Estimated GFR 49 L (59 - ) Glucose 108 (65-110) mg/dL Lactic Acid 1.5 (0.7-2.0) mmol/L Calcium 8.7 (8.4-10.2) mg/dL Total Bilirubin 1.5 H (0.2-1.3) mg/dL AST 36 (17-59) U/L ALT 20 (6-50) U/L Alkaline Phosphatase 108 (38-126) U/L Total Protein 5.8 L (6.3-8.2) g/dL Albumin 2.9 L (3.5-5.1) g/dL Urine Color Dark yellow (Yellow) Urine Appearance Cloudy H (Clear) Urine pH 5.5 (5.0-9.0) Ur Specific [place] 1.026 (1.001-1.035) Urine Protein 1+ H (Negative) mg/dL Urine Glucose (UA) Negative (Negative) mg/dL Urine Ketones Trace H (Negative) mg/dL Ur Blood (Man) Negative (Negative) Urine Nitrate Positive H (Negative) Urine Bilirubin 2+ H (Negative) Urine Urobilinogen 1.0 (<2.0) mg/dL Add Ur Microanalysis Reviewed Leukocyte Esterase Rfl 1+ H (Negative) ROBIN/UL Urine RBC 0-2 (0-2) /hpf Urine WBC 0-5 (0-3) /hpf Ur Squamous Epith Cells None seen (Few) /hpf Urine Bacteria None seen /hpf Urine Casts 0-2 ABG Data ABG results: 08/22/25 22:07 VBG pH 7.372 VBG pCO2 44.8 VBG pO2 < 27.0 L VBG HCO3 25.4 O2 Delivery Device High flow nasal deborah O2 Liters/Min 4.0 FiO2 36 Imaging Data Attestation: I personally reviewed and interpreted this imaging study as follows: My impression: Impressions Chest X-Ray 08/22/25 20:48 IMPRESSION: 1. No significant change in a small right pleural effusion or of linear and reticular opacities in the right mid and bilateral lower lung zones which could represent atelectasis/scarring and/or pneumonia. Critical Care Time Critical Care Time Critical Care Time: Yes Total Critical Care Time: 35 Discharge Plan Discharge Clinical Impression: AMS (altered mental status), SNEHA (mycobacterium avium-intracellulare) Pneumonia Qualifiers: Pneumonia type: due to unspecified organism Laterality: bilateral Lung location: unspecified part of lung Qualified Code(s): J18.9 - Pneumonia, unspecified organism Chronic obstructive pulmonary disease Qualifiers: COPD type: chronic bronchitis Chronic bronchitis type: unspecified Qualified Code(s): J42 - Unspecified chronic bronchitis Patient Disposition: Still a Patient Condition: Stable
[2025-08-22 22:45] LABS: Fractional Inspired Oxygen 36 %; HCO3 VBG 25.4 mEq/l (24.0-30.0); PCO2 VBG 44.8 mmHg (42.0-48.0); pH VBG 7.372 (7.300-7.400)
[2025-08-22 22:46] LABS: PO2 VBG < 27.0 mmHg (35.0-45.0)
[2025-08-22 22:47] LABS: Liters per Minute 4.0 LPM
[2025-08-22 22:58] VITALS: PULSE 82; RESP 16; O2SAT 93
--- NOTE | 2025-08-22 23:01 | PCRCNOTE ---
VBG was done late due to pt not in room
[2025-08-22 23:25] VITALS: BP 94/75; PULSE 81; RESP 19; O2SAT 96
--- NOTE | 2025-08-22 23:25 | PC.NURSE ---
assumed care of patient after receiving bedside report from MARJAN Allan. @ [phone]
[2025-08-23] VITALS (22 sets, daily range): BP systolic 104–146; BP diastolic 48–72; PULSE 70–105; RESP 17–21; TEMP 36.7–37.5; O2SAT 94–100; BMI 21.1
--- NOTE | 2025-08-23 | ECHO_ITS ---
Patient Info Name: Russell Morse Age: 80 years : 1945 Gender: Male Ht: 71 in Wt: 151 lbs BSA: 1.85 m2 HR: 76 bpm BP: 146 / 59 mmHg Heart Rhythm: Sinus Rhythm Technical Quality: Good Exam Date: 08/23/2025 10:00 AM Patient Status: I Admit Date: 08/22/2025 Exam Type: CA echo doppler color flow Complete two-dimensional, color flow and Doppler transthoracic echocardiogram is performed. Staff Referring Physician: Mushtaq Mason Die Set Up Worker: Daphne Maldonado Attending Provider: Delvin Rivera Summary 1. Complete two-dimensional, color flow and Doppler transthoracic echocardiogram is performed. 2. Adequate, low normal left ventricular systolic function with small area of apical septal akinesia. 3. Grade 1 diastolic noncompliance. 4. Mildly sclerotic aortic valve with good leaflet excursion. 5. Compared with examination from October of 2024 the findings are similar, left ventricular ejection fraction is slightly better. Left Ventricle Left ventricular chamber dimension is normal. Left ventricular systolic function is normal, estimated at 50-55. The left ventricular diastolic function is grade I diastolic dysfunction. Right Ventricle Right ventricular chamber dimension is normal. Left Atria Left atrial chamber dimension is normal. Right Atria Right atrial chamber dimension is normal. Aortic Valve The aortic valve is trileaflet. There is mild aortic valve sclerosis. Pulmonic Valve The pulmonic valve is normal. Mitral Valve The mitral valve has normal leaflets. The mitral valve annulus is mildly calcified. Tricuspid Valve The tricuspid valve leaflets are normal. Pericardium/Pleural The pericardium appears normal. Aorta The aortic root size at the sinus of Valsalva is normal. Left Ventricular Outflow Tract Name Value Normal LVOT 2D LVOT Diameter 2.0 cm LVOT Doppler LVOT Peak Velocity 123 cm/s LVOT Peak Gradient 6 mmHg LVOT Mean Gradient 3 mmHg LVOT VTI 24 cm LVOT Stroke Volume 74 ml LVOT CO 5.7 l/min LVOT CI 3.1 l/min/m2 Pulmonic Valve Name Value Normal RVOT Doppler RVOT Peak Velocity 73 cm/s RVOT Peak Gradient 2 mmHg PV Doppler PV Peak Velocity 115 cm/s PV Peak Gradient 5 mmHg Mitral Valve Name Value Normal MV Diastolic Function MV E Peak Velocity 63 cm/s MV A Peak Velocity 101 cm/s MV E/A 0.6 MV Decel Time (PW) 344 ms MV Annular TDI MV E/e' (Septal) 10.5 MV E/e' (Lateral) 6.8 MV E/e' (Average) 8.7 Aortic Valve Name Value Normal AV Doppler AV Peak Velocity 167 cm/s AV Peak Gradient 11 mmHg AV Area (Cont Eq Jt) 2.3 cm2 AV DI (Jt) 0.74 AV Regurgitation 2D LVOT Area 3.1 cm2 Ventricles Name Value Normal LV Dimensions 2D/MM IVS Diastolic Thickness (2D) 1.0 cm 0.6-1.0 LVID Diastole (2D) 4.2 cm 4.2-5.8 LVIW Diastolic Thickness (2D) 0.9 cm 0.6-1.0 LVID Systole (2D) 2.7 cm 2.5-4.0 LVOT Diameter 2.0 cm LV Mass (2D Cubed) 131.36 g 88.00-224.00 LV Mass Index (2D Cubed) 71 g/m2 49-115 Relative Wall Thickness (2D) 0.43 <=0.42 LV Fractional Shortening/Ejection Fraction 2D/MM LV Fractional Shortening (2D) 36 % 25-43 LV EF (2D Teichholz) 66 % LV Diastolic Volume (4C MOD) 93 ml LV EF (4C MOD) 52 % LV Diastolic Volume (2C MOD) 108 ml LV EF (2C MOD) 59 % LV Diastolic Volume (BP MOD) 103 ml 62-150 LV Diastolic Volume Index (BP MOD) 56 ml/m2 34-74 LV Systolic Volume (BP MOD) 46 ml 21-61 LV Systolic Volume Index (BP MOD) 25 ml/m2 11-31 LV EF (BP MOD) 55 % 52-72 LV Diastolic Length (4C) 8.9 cm LV Systolic Length (4C) 7.5 cm LV Stroke Volume (4C MOD) 48 ml Atria Name Value Normal LA Dimensions LA Volume (4C A-L) 49 ml LA Volume (BP A-L) 60 ml RA Dimensions RA Systolic Major [place] Length (4C) 4.5 cm 2.1-2.7 RA Area (4C) 12.8 cm2 <=18.0 Report Signatures
--- NOTE | 2025-08-23 00:28 | PC.NURSE ---
Cipro dose started at 0025. Unable to sca. Per Jermaine in pharmacy, this RN is to go ahead amd start medication because he is unsure why it is not able to scan.
--- NOTE | 2025-08-23 02:31 | ADMGEN ---
This patient, Russell Morse, was admitted to IMU Room 206-01. Patient/family oriented to hospital policies and general routines including ID bracelet, bed and alarms, visiting hours, pain management, procedures, bathroom and other care routines, personal items, smoking policy, room service/diet, and visiting hours. Information on how to activate the Rapid Response Team has been discussed. Patient/Family are encouraged to report perceived risks to care and to ask questions if they do not understand what they are told or what they should do.
--- NOTE | 2025-08-23 03:43 | PM.IMHP ---
H&P: HPI History of Present Illness Date/Time: 08/23/25 03:43 Chief Complaint: Weakness Narrative: This is an 80-year-old male patient with a history of COPD chronically on oxygen at 4 L per nasal cannula. He has SNEHA colonization with infection and has been on a Zithromax , rifabutin, and ethambutol. He also has a history of congestive heart failure with reduced EF. The patient did not get out of bed today and was only orientated to himself. At the group home he was found to be 75% on his chronic oxygen. His white count is noted to be 11.0. H and H is 7.3 and 24.3 which is his baseline. Sodium is 130 which is his baseline. Creatinine is 139 which is bumped above his baseline and BUN is 28. His GFR is 49 with a baseline greater than 60. His urine is cloudy with 1+ protein trace ketones positive nitrates and 2+ urine bilirubin. Chest x-ray was read as the following1. No significant change in a small right pleural effusion or of linear and reticular opacities in the right mid and bilateral lower lung zones which could represent atelectasis/scarring and/or pneumonia. His blood pressure in ER was 98/41 and he was given a L of fluid which brought his blood pressure up to 128/50. Head CT and chest CT were obtained with no official report. The patient was given morphine at the group home which he takes regularly and was given Narcan without any improvement of his altered mental status. The patient was given Cipro IV piggyback, lactated Ringer's, Tylenol and Zofran in the emergency room. Arterial blood gases shows hypoxia. The patient was admitted to inpatient status on the date of service of 08/23/2025 Review of Systems Review of Systems: ROS unobtainable: Yes unobtainable due to medical condition [facility] Past Medical History Medical History (Updated 08/23/25 @ 14:52 by BRITTANY Ellis) Pneumonia Anxiety Physical deconditioning NSVT (nonsustained ventricular tachycardia) Dysfunction of left eustachian tube Leukocytosis Heart failure with mildly reduced ejection fraction Chronic pulmonary aspergillosis Major depressive disorder, recurrent, mild Left foot drop Chronic kidney disease, stage 3 Spinal stenosis, lumbar region without neurogenic claudication Ischemic cardiomyopathy Echocardiogram 09/2021: Mildly reduced left ventricular systolic function EF of 45-50%, grade 1 diastolic dysfunction, inferior wall inferior septal wall basal inferior wall and mid inferior lateral wall hypokinesis with mild left atrial and large SVT (supraventricular tachycardia) 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 History of tobacco use Polio (1951) Other chronic pain Aortic stenosis Mild - Echo 05/15/2022 NSTEMI (non-ST elevated myocardial infarction) (08/2019) Atherosclerotic heart disease of [place] coronary artery without angina pectoris Abdominal aortic aneurysm, without rupture Seen on CT scan on 02/09/2018 Restless legs syndrome Surgical History Surgical History History of tonsillectomy and adenoidectomy History of repair of rotator cuff bilateral History of colonoscopy with polypectomy History of bowel resection due to obstruction Presence of coronary angioplasty implant and graft History of coronary artery stent placement X2 History of mandibular surgery (1986) reconstructive surgery right mandible related to cancer Family History Family History Mother Diabetes mellitus Acute myocardial infarction Father Colon cancer COPD (chronic obstructive pulmonary disease) Sibling Colon cancer Acute myocardial infarction Lung cancer COPD (chronic obstructive pulmonary disease) Sibling COPD (chronic obstructive pulmonary disease) Sibling Congestive heart failure Sibling Dementia Social History Social History Social History: Surrogate medical decision maker: Yessi Morgan, daughter. Code status: Full code. But he states he would not want to be on a ventilator long-term have a tracheostomy or feeding tube. Smoking packs per day: 2 Smoking cigarettes per day: 40.0 Years smoked: 60 Smoking pack-years: 120.00 Smoking status: Former smoker Second hand tobacco smoke exposure: No Alcohol intake: never Substance use: never Substance use type: does not use Other substance usage details: quit alcohol in 2010 Last use: Last alcohol use 2011 Do You Feel Safe in your Home?: Yes Lack of Transportation: No Lack of Food: Never True Current Housing: I Have Housing Concerned About Future Housing: No Difficulty Paying Gas/Electric Bills: No Difficulty Paying for Meds: No Currently Unemployed: No Education: High School Diploma/GED Difficulty w/ Childcare or Family Care: No Living arrangements: with family Additional living arrangements comments: . Lives in [place] with son and [id number]. 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 Spiritual care concerns: No Agree to blood products: Yes Meds Home Medications and Allergies Home Medications ?Medication ?Instructions ?Recorded ?Confirmed ?Type aspirin 81 mg tablet,delayed 81 mg PO DAILY #90 tabs 06/15/23 08/23/25 Rx release fenofibrate 160 mg tablet 160 mg PO DAILY #90 tabs 09/16/23 08/23/25 Rx nebulizer accessories #1 ea 04/12/24 08/23/25 Rx nebulizer and compressor #1 ea 04/12/24 08/23/25 Rx albuterol sulfate 90 mcg/actuation 2 puff inhalation Q4H PRN 10/03/24 08/23/25 Rx aerosol inhaler Shortness Of Breath Or Wheezing #8.5 grams nitroglycerin 0.4 mg sublingual 0.4 mg sublingual Q5M PRN chest 12/08/24 08/23/25 Rx tablet pain #25 tabs sulindac 200 mg tablet 200 mg PO BID #180 tabs 04/07/25 08/23/25 Rx sertraline 50 mg tablet 50 mg PO DAILY #90 tabs 04/20/25 08/23/25 Rx trazodone 100 mg tablet 100 mg PO HS Insomnia #90 tabs 05/24/25 08/23/25 Rx esomeprazole magnesium 20 mg 20 mg PO DAILY 06/15/25 08/23/25 History capsule,delayed release ethambutol 400 mg tablet 1,200 mg PO DAILY 06/15/25 08/23/25 History tamsulosin 0.4 mg capsule 0.4 mg PO BID 06/15/25 08/23/25 History baclofen 10 mg tablet 10 mg PO HS #30 tabs 07/02/25 08/23/25 Rx benzonatate 100 mg capsule 200 mg (2 x 100 mg) PO TID PRN 07/02/25 08/23/25 Rx Cough #30 caps guaifenesin 600 mg tablet, 1,200 mg (2 x 600 mg) PO Q12HR #60 07/02/25 08/23/25 Rx extended release 12 hr (Mucus tabs Relief ER) ipratropium 0.5 mg-albuterol 3 mg 3 ml inhalation Q6HRT #180 mL 07/02/25 08/23/25 Rx (2.5 mg base)/3 mL nebulization soln morphine 30 mg tablet,extended 30 mg PO Q12H PRN pain 3 days #6 07/02/25 08/23/25 Rx release tabs olopatadine 0.2 % eye drops (Eye 1 drp EACH EYE DAILY PRN itching 07/02/25 08/23/25 Rx Allergy Itch Relief) #5 mL bupropion HCl 150 mg tablet,12 hr 150 mg PO BID #180 tabs 07/03/25 08/23/25 Rx sustained-release lorazepam 0.5 mg tablet (Ativan) 0.5 mg PO DAILY PRN anxiety #14 07/23/25 08/23/25 Rx tabs baclofen 10 mg tablet 10 mg PO Q8H PRN muscle spasm 07/29/25 08/23/25 History bisacodyl 10 mg rectal suppository 10 mg RECTAL DAILY PRN constipation 07/29/25 08/23/25 History cilcitriol capsule See Rx Instructions .Route 07/29/25 08/23/25 History .COMPLEX hypocalcemia magnesium hydroxide 400 mg/5 mL 30 ml PO HS PRN constipation 07/29/25 08/23/25 History oral suspension (Milk of Magnesia) metoprolol tartrate 50 mg tablet 50 mg PO HS 07/29/25 08/23/25 History (Lopressor) naloxone 4 mg/actuation nasal 4 mg intranasal Q2M 08/23/25 08/23/25 History spray (Narcan) Allergies Allergy/AdvReac Type Severity Reaction Status Date / Time clonazepam AdvReac Severe Drowsy Verified 08/22/25 20:21 roflumilast (From Daliresp) AdvReac Severe Diarrhea Verified 08/22/25 20:21 Vital Signs Vital Signs - 24 hr 08/22/25 20:08 08/22/25 21:59 08/22/25 22:58 Temperature 97.6 F Pulse Rate 64 71 82 Respiratory Rate 17 16 16 Blood Pressure 98/41 L 128/50 L Pulse Oximetry 100 100 93 Oxygen Delivery Nasal Cannula Oxygen Flow Rate 4 08/22/25 23:25 08/23/25 00:29 08/23/25 00:51 Temperature Pulse Rate 81 80 80 Respiratory Rate 19 18 17 Blood Pressure 94/75 L 120/48 L 133/57 L Pulse Oximetry 96 97 96 Oxygen Delivery Oxygen Flow Rate 08/23/25 02:30 08/23/25 02:30 Temperature Pulse Rate 80 78 Respiratory Rate 17 Blood Pressure Pulse Oximetry 96 Oxygen Delivery Nasal Cannula Oxygen Flow Rate 4 Exam Const: General: cooperative, healthy appearing and average body habitus Nutritional Appearance: average body habitus Orientation/consciousness: oriented to person HENMT: Head: normal to inspection, No palpable skull fracture present and normocephalic Eyes: General: appearance normal, both eyes and all related structures Alignment and Position: alignment normal Neck: Neck: normal visual inspection and full ROM Chest: Chest palpation & inspection: normal inspection of the chest Resp: Effort & Inspection: normal respiratory effort Auscultation: wheezes Other: Expiratory and inspiratory wheezes noted. Cardio: Palpation: normal PMI Rate: regular rate Rhythm: regular rhythm Heart sounds: S1 normal heart sound present and S2 normal heart sound present Peripheral pulses: Peripheral pulses 2+ throughout GI: Inspection: normal to inspection Auscultation: normal bowel sounds Rectal Exam: deferred Skin: General skin exam: normal color Lesions: no lesions Rashes: no rashes Trauma: no lacerations or abrasions Wounds: no wounds Neuro: General: oriented to person Extrem: General: normal to inspection Right upper extremity: normal to inspection and shoulder/upper arm Left upper extremity: normal to inspection and shoulder/upper arm Right lower extremity: normal to inspection Left lower extremity: normal to inspection Psych: Appearance: disheveled Affect: normal affect Attitude: cooperative H&P: Results Labs Labs: Short CBC 08/22/25 Range/Units 20:34 WBC 11.0 H (4.5-10.0) K/mm3 Hgb 7.3 L (14.0-18.0) g/dL Hct 24.3 L (42.0-52.0) % Plt Count 164 (150-375) k/mm3 BMP 08/22/25 20:34 Sodium 130 L Potassium 4.1 Chloride 97 L Carbon Dioxide 28 BUN 28 H Creatinine 1.39 H Glucose 108 Calcium 8.7 Liver Function 08/22/25 Range/Units 20:34 Total Bilirubin 1.5 H (0.2-1.3) mg/dL AST 36 (17-59) U/L ALT 20 (6-50) U/L Alkaline Phosphatase 108 (38-126) U/L Albumin 2.9 L (3.5-5.1) g/dL Urine 08/22/25 Range/Units 21:30 Urine Color Dark yellow (Yellow) Urine Appearance Cloudy H (Clear) Urine pH 5.5 (5.0-9.0) Ur Specific [place] 1.026 (1.001-1.035) Urine Protein 1+ H (Negative) mg/dL Urine Glucose (UA) Negative (Negative) mg/dL ABG ABG results: Impressions ECG Interpretation: SINUS RHYTHM WITH FIRST DEGREE AV BLOCK POSSIBLE RIGHT VENTRICULAR CONDUCTION DELAY [RSR (QR) IN V1/V2] Compared to ECG 08/03/2025 13:02:19 First degree AV block now present Incomplete right bundle-branch block no longer present Possible ischemia no longer present Imaging CT scan - chest: Radiologist's impression: Impressions Chest X-Ray 08/22/25 20:48 IMPRESSION: 1. No significant change in a small right pleural effusion or of linear and reticular opacities in the right mid and bilateral lower lung zones which could represent atelectasis/scarring and/or pneumonia. Assessment and Plan Assessment and plan (1) Pneumonia: Qualifiers: Laterality: right Lung location: unspecified part of lung Pneumonia type: due to unspecified organism Qualified Code(s): J18.9 - Pneumonia, unspecified organism Code(s): J18.9 - Pneumonia, unspecified organism Status: Acute Assessment and Plan: -the patient was evaluated by farm rancher on 08/03/2025 and was noted that the patient had a small right lower lobe infiltrate with effusion and has been improving. The patient had been on oral Cipro from August 02 until the . It was noted that he was in a deandre colonization v infection and had been on HD with a rise in, rifabutin, and ethambutol. He had also been on Levaquin for bilateral pneumonia. Chest x-ray now shows no significant change in small right pleural effusion or of linear and reticular opacities of the right mid and bilateral lower lung zones which could represent atelectasis-scarring and or pneumonia. -his white count now is 11. And he is afebrile. -continue with DuoNebs. -the patient started on Cipro IV -continue with Mucinex -continue with ethambutol -CT of the chest was performed awaiting official report. -may consider Infectious Disease disease consult -may consider Pulmonary consult. -sputum and blood cultures pending. (2) COPD (chronic obstructive pulmonary disease): Code(s): J44.9 - Chronic obstructive pulmonary disease, unspecified Status: Acute Assessment and Plan: -pulmonary consultation would greatly be appreciated. -continue with Mucinex -continue with DuoNebs (3) Chronic hypoxic respiratory failure, on home oxygen therapy: Code(s): J96.11 - Chronic respiratory failure with hypoxia; Z99.81 - Dependence on supplemental oxygen Status: Acute Assessment and Plan: -patient is chronically on oxygen at 4 L per nasal cannula. -CT of the chest was taken awaiting official report. -the patient currently on 4 L per nasal cannula with ABG showing hypoxia. -his pulse ox is anywhere from 92-96%. -the patient had received some morphine today and was given Narcan. (4) Depression: Code(s): F32.A - Depression, unspecified Status: Acute Assessment and Plan: -continue with bupropion -trazodone has been on hold. (5) Anxiety disorder, unspecified: Code(s): F41.9 - Anxiety disorder, unspecified Status: Acute Assessment and Plan: -continue bupropion -continue with Zoloft (6) HTN (hypertension): Qualifiers: Hypertension type: primary hypertension Qualified Code(s): I10 - Essential (primary) hypertension Code(s): I10 - Essential (primary) hypertension Status: Chronic Assessment and Plan: -continue with metoprolol if blood pressure allows -blood pressure is currently 146/59. (7) Combined systolic and diastolic congestive heart failure: Qualifiers: Heart failure chronicity: acute on chronic Qualified Code(s): I50.43 - Acute on chronic combined systolic (congestive) and diastolic (congestive) heart failure Code(s): I50.40 - Unspecified combined systolic (congestive) and diastolic (congestive) heart failure Status: Acute Assessment and Plan: -echo from 2023 was read as follows 1. Left ventricular chamber dimension is normal. 2. There is mildly increased left ventricular wall thickness. 3. Left ventricular systolic function is mildly reduced with an ejection fraction by Biplane Method of Discs of 49 %. 4. Left ventricular wall motion shows inf hypokinesis. 5. The left ventricular diastolic function is grade I diastolic dysfunction. 6. Right ventricular chamber dimension is normal. 7. Right ventricular systolic function is normal. 8. There is no aortic valve stenosis. 9. There is no mitral valve regurgitation. 10. There is no tricuspid valve regurgitation. The patient was given a 1 time dose of Lasix with some improvement. However no further Lasix was given due to his chronic hyponatremia (8) Hyponatremia: Code(s): E87.1 - Hypo-osmolality and hyponatremia Status: Acute Assessment and Plan: -Patient is chronically low. He is at his baseline his sodium was 130. (9) SANDI (acute kidney injury): Code(s): N17.9 - Acute kidney failure, unspecified Status: Acute Assessment and Plan: -his creatinine is 1.39 with a normal baseline and his GFR is 49 which is typically greater than 60. -daily BMPs -hold nephrotoxic medication -may consider renal ultrasound. (10) Leukocytosis: Code(s): D72.829 - Elevated white blood cell count, unspecified Status: Acute Assessment and Plan: -infectious Disease has been consulted. -blood and sputum cultures are pending. -the patient was started on IV Cipro. -continue with ethambutol -the patient has a history of SNEHA colonization (11) SNEHA (mycobacterium avium-intracellulare): Code(s): A31.0 - Pulmonary mycobacterial infection Status: Acute Assessment and Plan: -infectious Disease has been consulted -pulmonary has been consulted -continue with current antibiotics. Quality VTE Prophylaxis VTE prophylaxis: mechanical ordered
[2025-08-23] MEDS: IPRATROPIUM 0.5 MG/ALBUTEROL SULFATE 2.5 MG AMPUL.NEB 3 ML INHALATION ×4 (04:17→20:55)
[2025-08-23] MEDS: FUROSEMIDE INJ 40 MG/4 ML VIAL 20 MG IV PUSH (04:51)
--- NOTE | 2025-08-23 09:02 | P.PNIM_ITS ---
Progress Note: A&P Assessment and Plan (1) Pneumonia: Qualifiers: Laterality: right Lung location: unspecified part of lung Pneumonia type: due to unspecified organism Qualified Code(s): J18.9 - Pneumonia, unspecified organism Code(s): J18.9 - Pneumonia, unspecified organism Status: Acute Assessment and Plan: -multiple admissions for recurrent pneumonia. Has history of SNEHA infection. - admit WBC 11, afebrile - CT Chest with moderate emphysema, diffuse lung disease with a peripheral and lower lung predominance with worsening in posterior segment RUL, chornic small right pleural effusion and bilateral pleural thickening - pulm consulted. Discussed case with Dr. Gottlieb who felt changes mostly chronic or related to mucus plugging, less likely acute bacterial process. - ID consulted. Stopped cipro, started Merrem. Continue SNEHA treatment with daily azithromycin, ethambutol, rifampin. -sputum and blood cultures pending. (2) AMS (altered mental status): Code(s): R41.82 - Altered mental status, unspecified Status: Acute Assessment and Plan: - presented alert and oriented x1 - CT head with no acute process - suspect infectious in setting of UTI and possible pneumonia - patient is alert and oriented x4 this AM. - continue treatment of bacterial processes - monitor mental status (3) COPD (chronic obstructive pulmonary disease): Code(s): J44.9 - Chronic obstructive pulmonary disease, unspecified Status: Acute Assessment and Plan: - pulm feels patient does not appear in acute exacerbation -continue with Mucinex -continue with DuoNebs (4) Chronic hypoxic respiratory failure, on home oxygen therapy: Code(s): J96.11 - Chronic respiratory failure with hypoxia; Z99.81 - Dependence on supplemental oxygen Status: Acute Assessment and Plan: -patient is chronically on oxygen at 4 L per nasal cannula. (5) Urinary tract infection: Code(s): N39.0 - Urinary tract infection, site not specified Status: Acute Assessment and Plan: - UA with positive nitrates, 1+ LE - symptomatic with dysuria - continue Merrem. Await urine culture. (6) Depression: Code(s): F32.A - Depression, unspecified Status: Acute Assessment and Plan: -continue with bupropion -trazodone has been on hold. 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: Qualifiers: Heart failure chronicity: acute on chronic Qualified Code(s): I50.43 - Acute on chronic combined systolic (congestive) and diastolic (congestive) heart failure Code(s): I50.40 - Unspecified combined systolic (congestive) and diastolic (congestive) heart failure Status: Acute Assessment and Plan: - echo 2023 with EF 49%, G1 DD - given IV Lasix x1 in ED - appears euvolemic this AM (10) Hyponatremia: Code(s): E87.1 - Hypo-osmolality and hyponatremia Status: Acute Assessment and Plan: -Na 131, appears chronically low and near baseline (11) SANDI (acute kidney injury): Code(s): N17.9 - Acute kidney failure, unspecified Status: Acute Assessment and Plan: -Cr 1.39 on admit. Received IV lasix and fluids in ED. Cr improved this AM. -hold home sulindac (12) SNEHA (mycobacterium avium-intracellulare): Code(s): A31.0 - Pulmonary mycobacterial infection Status: Acute Assessment and Plan: -continue azithromycin, ethambutol and rifampin Subjective Date/time seen: 08/23/25 09:02 Interval history: Patient seen and examined at bedside. Feeling much better this AM. Alert and oriented x4. Has a productive cough and dysuria. Review of Systems Review of Systems: All systems reviewed & are unremarkable except as noted in HPI and below Exam Narrative: General: NAD. Appears chronically debilitated. Eyes: EOMI ENT: neck supple Cardiovascular: Regular rate and rhythm Respiratory: scattered rhonchi bilaterally, respirations even and unlabored on 2L NC Gastrointestinal: Soft, non tender Genitourinary: no suprapubic tenderness Musculoskeletal: No edema Skin: warm, dry Neuro: Alert and oriented x4 Psych: Mood appropriate Objective Data Vital Signs Vital Signs: Vital Signs - 24 hr 08/22/25 20:08 08/22/25 21:59 08/22/25 22:58 Temperature 97.6 F Pulse Rate 64 71 82 Respiratory Rate 17 16 16 Blood Pressure 98/41 L 128/50 L Pulse Oximetry 100 100 93 Oxygen Delivery Nasal Cannula Oxygen Flow Rate 4 Fraction of Inspired Oxygen 08/22/25 23:25 08/23/25 00:29 08/23/25 00:51 Temperature Pulse Rate 81 80 80 Respiratory Rate 19 18 17 Blood Pressure 94/75 L 120/48 L 133/57 L Pulse Oximetry 96 97 96 Oxygen Delivery Oxygen Flow Rate Fraction of Inspired Oxygen 08/23/25 02:30 08/23/25 02:30 08/23/25 03:42 Temperature 98.3 F Pulse Rate 80 78 88 Respiratory Rate 17 17 Blood Pressure 146/59 H Pulse Oximetry 96 95 Oxygen Delivery Nasal Cannula Oxygen Flow Rate 4 Fraction of Inspired Oxygen 08/23/25 04:19 08/23/25 04:23 08/23/25 04:29 Temperature Pulse Rate 71 71 70 Respiratory Rate 20 20 20 Blood Pressure Pulse Oximetry 95 Oxygen Delivery Nasal Cannula Oxygen Flow Rate 4 Fraction of Inspired Oxygen 36 08/23/25 06:00 08/23/25 08:00 Temperature 98.1 F Pulse Rate 72 70 Respiratory Rate 20 Blood Pressure 104/72 Pulse Oximetry 100 Oxygen Delivery Oxygen Flow Rate Fraction of Inspired Oxygen Intake/Output Intake/Output: Intake & Output 08/20/25 08/21/25 08/22/25 08/23/25 23:59 23:59 23:59 23:59 Intake Total 1000 Output Total 30 500 Balance 970 -500 Meds/Results Medications: Active Medications Generic Name Dose Route Start Last Admin Trade Name Freq PRN Reason Stop Dose Admin Acetaminophen 650 mg 08/22/25 23:22 Acetaminophen 325 Mg Tablet PO Q4H PRN Mild Pain (1-3) or Fever Albuterol/Ipratropium 3 ml 08/23/25 08:00 Ipratropium 0.5 Mg/Albuterol Sulfate 2.5 Mg Ampul.Neb 3 Ml INHALATION Q6HRT [facility] Aspirin 81 mg 08/23/25 09:00 Aspirin 81 Mg Enteric Tablet PO DAILY [facility] Bisacodyl 10 mg 08/23/25 04:05 Bisacodyl 10 Mg Suppository RECTAL DAILY PRN Constipation Bupropion HCl 150 mg 08/23/25 09:00 Bupropion Hcl Sr (12 Hr) 150 Mg Tab PO Q12HR [facility] Ethambutol HCl 1,200 mg 08/23/25 09:00 Ethambutol Hcl 400 Mg Tablet PO DAILY [facility] Fenofibrate 145 mg 10/01/25 09:00 Fenofibrate 145 Mg Tablet PO QAM [facility] Guaifenesin 1,200 mg 08/23/25 09:00 Guaifenesin 12 Hr 600 Mg Tabcr PO Q12HR [facility] Ciprofloxacin/Dextrose 200 mls @ 200 mls/hr 08/23/25 00:00 08/23/25 02:24 Cipro 400 Mg/D5w 200 Ml IVPB Not Given Q12H [facility] Metoprolol Tartrate 50 mg 08/23/25 21:00 Metoprolol Tartrate 50 Mg Tab PO HS [facility] Miscellaneous Information 0 each 08/23/25 04:45 08/23/25 06:32 Sulindac 200 Mg Tablet- Nonformulary. Please Obtain A Home Supply If Possible Or Hold Whil XX 09/22/25 04:44 Not Given CLARIFY [facility] Non-Formulary Medication 200 mg 08/23/25 09:00 Sulindac PO 09/22/25 08:59 BID [facility] Ondansetron HCl 4 mg 08/22/25 23:22 Ondansetron Inj 4 Mg/2 Ml Vial IV PUSH Q4H PRN Nausea Pantoprazole Sodium 40 mg 08/23/25 09:00 Pantoprazole 40 Mg Tablet PO QAM [facility] Perflutren Lipid Microsphere 0 ml 08/23/25 04:03 Perflutren Lipid Microspheres 1.5 Ml Vial Diluted To 10 Ml Total Volume IV PUSH 08/26/25 04:03 ONCE PRN adequate visualization Protocol Sertraline HCl 50 mg 08/23/25 09:00 Sertraline Hcl 50 Mg Tablet PO DAILY [facility] Tamsulosin HCl 0.4 mg 08/23/25 09:00 Tamsulosin Hcl 0.4 Mg Capsule PO BID [facility] Radiology Results: ITS Impressions Chest X-Ray 08/22/25 20:48 IMPRESSION: 1. No significant change in a small right pleural effusion or of linear and reticular opacities in the right mid and bilateral lower lung zones which could represent atelectasis/scarring and/or pneumonia. Head CT 08/23/25 07:34 IMPRESSION: 1. Stable moderate nonspecific cerebral white matter disease, which likely represents chronic small vessel ischemic disease. Labs Labs: Laboratory Results - last 24 hr 08/22/25 08/22/25 08/22/25 20:34 21:30 22:07 WBC 11.0 H RBC 2.74 L Hgb 7.3 L Hct 24.3 L MCV 88.7 MCH 26.6 MCHC 30.0 L RDW 17.0 H Plt Count 164 MPV 11.7 H Immature Gran % (Auto) 0.7 H Neut % (Auto) 83.2 H Lymph % (Auto) 5.3 L Wharton % (Auto) 10.7 H Eos % (Auto) 0.0 Baso % (Auto) 0.1 L Lymph # (Auto) 0.58 L Wharton # (Auto) 1.2 H Eos # (Auto) 0.0 Baso # (Auto) 0.0 Abs Immat Gran (auto) 0.08 H Absolute Neuts (auto) 9.1 H Absolute Nucleated RBC 0.000 Nucleated RBC % 0.0 PT 23.6 H INR 2.2 APTT 69.9 H VBG pH 7.372 VBG pCO2 44.8 VBG pO2 < 27.0 L VBG HCO3 25.4 O2 Delivery Device High flow nasal deborah O2 Liters/Min 4.0 FiO2 36 Sodium 130 L Potassium 4.1 Chloride 97 L Carbon Dioxide 28 Anion Gap 5 BUN 28 H Creatinine 1.39 H Estim Creat Clear Calc 36 Estimated GFR 49 L Glucose 108 Lactic Acid Calcium 8.7 Total Bilirubin 1.5 H AST 36 ALT 20 Alkaline Phosphatase 108 Total Protein 5.8 L Albumin 2.9 L Urine Color Dark yellow Urine Appearance Cloudy H Urine pH 5.5 Ur Specific [place] 1.026 Urine Protein 1+ H Urine Glucose (UA) Negative Urine Ketones Trace H Ur Blood (Man) Negative Urine Nitrate Positive H Urine Bilirubin 2+ H Urine Urobilinogen 1.0 Add Ur Microanalysis Reviewed Leukocyte Esterase Rfl 1+ H Urine RBC 0-2 Urine WBC 0-5 Ur Squamous Epith Cells None seen Urine Bacteria None seen Urine Casts 0-2 08/22/25 22:42 WBC RBC Hgb Hct MCV MCH MCHC RDW Plt Count MPV Immature Gran % (Auto) Neut % (Auto) Lymph % (Auto) Wharton % (Auto) Eos % (Auto) Baso % (Auto) Lymph # (Auto) Wharton # (Auto) Eos # (Auto) Baso # (Auto) Abs Immat Gran (auto) Absolute Neuts (auto) Absolute Nucleated RBC Nucleated RBC % PT INR APTT VBG pH VBG pCO2 VBG pO2 VBG HCO3 O2 Delivery Device O2 Liters/Min FiO2 Sodium Potassium Chloride Carbon Dioxide Anion Gap BUN Creatinine Estim Creat Clear Calc Estimated GFR Glucose Lactic Acid 1.5 Calcium Total Bilirubin AST ALT Alkaline Phosphatase Total Protein Albumin Urine Color Urine Appearance Urine pH Ur Specific [place] Urine Protein Urine Glucose (UA) Urine Ketones Ur Blood (Man) Urine Nitrate Urine Bilirubin Urine Urobilinogen Add Ur Microanalysis Leukocyte Esterase Rfl Urine RBC Urine WBC Ur Squamous Epith Cells Urine Bacteria Urine Casts Quality VTE Prophylaxis VTE prophylaxis: mechanical ordered and pharmacologic ordered
[2025-08-23] MEDS: buPROPion HCL SR (12 HR) 150 MG TAB PO ×2 (09:27→21:03)
[2025-08-23] MEDS: SERTRALINE HCL 50 MG TABLET PO (09:27)
[2025-08-23] MEDS: TAMSULOSIN HCL 0.4 MG CAPSULE PO ×2 (09:27→16:45)
[2025-08-23] MEDS: guaiFENesin 12 HR 600 MG TABCR 1200 MG PO ×2 (09:27→21:03)
[2025-08-23] MEDS: FENOFIBRATE 145 MG TABLET PO (09:27)
[2025-08-23] MEDS: PANTOPRAZOLE 40 MG TABLET PO (09:27)
[2025-08-23] MEDS: ETHAMBUTOL HCL 400 MG TABLET 1200 MG PO (09:28)
[2025-08-23] MEDS: ASPIRIN 81 MG ENTERIC TABLET PO (09:29)
--- NOTE | 2025-08-23 10:14 | P.CDI_ITS ---
CDI Query Clarification Request 1) Please specify status of COPD, if known. * Exacerbation of COPD * No exacerbation/stable COPD * Other * Unable to determine 2) Please review the clinical information below and clarify the respiratory diagnosis the patient is being treated for: * Hypoxia or hypoxemia without respiratory failure * Respiratory distress without respiratory failure * Acute respiratory failure with hypoxia * Acute respiratory failure with hypercapnia * Acute respiratory failure with hypoxia and hypercapnia * Acute on chronic respiratory failure with hypoxia * Acute on chronic respiratory failure with hypercapnia * Acute on chronic respiratory failure with hypoxia and hypercapnia * Acute respiratory distress syndrome (ARDS) * Chronic respiratory failure with hypoxia * Chronic respiratory failure with hypercapnia * Chronic respiratory failure with hypoxia and hypercapnia * Other explanation clinical findings, please specify * Unable to determine Assessment and Plan (1) Pneumonia: Qualifiers: Pneumonia type: due to unspecified organism Laterality: right Lung location: unspecified part of lung Qualified Code(s): J18.9 - Pneumonia, unspecified organism Code(s): J18.9 - Pneumonia, unspecified organism Status: Acute Assessment and Plan: -the patient was evaluated by clockmaker apprentice on 08/03/2025 and was noted that the patient had a small right lower lobe infiltrate with effusion and has been improving. The patient had been on oral Cipro from August 02 until the . It was noted that he was in a deandre colonization v infection and had been on HD with a rise in, rifabutin, and ethambutol. He had also been on Levaquin for bilateral pneumonia. Chest x-ray now shows no significant change in small right pleural effusion or of linear and reticular opacities of the right mid and bilateral lower lung zones which could represent atelectasis-scarring and or pneumonia. -his white count now is 11. And he is afebrile. -continue with DuoNebs. -the patient started on Cipro IV -continue with Mucinex -continue with ethambutol -CT of the chest was performed awaiting official report. -may consider Infectious Disease disease consult -may consider Pulmonary consult. -sputum and blood cultures pending. (2) COPD (chronic obstructive pulmonary disease): Code(s): J44.9 - Chronic obstructive pulmonary disease, unspecified Status: Acute Assessment and Plan: -pulmonary consultation would greatly be appreciated. -continue with Mucinex -continue with DuoNebs (3) Chronic hypoxic respiratory failure, on home oxygen therapy: Code(s): J96.11 - Chronic respiratory failure with hypoxia; Z99.81 - Dependence on supplemental oxygen Status: Acute Assessment and Plan: -patient is chronically on oxygen at 4 L per nasal cannula. -CT of the chest was taken awaiting official report. -the patient currently on 4 L per nasal cannula with ABG showing hypoxia. -his pulse ox is anywhere from 92-96%. -the patient had received some morphine today and was given Narcan. (4) Depression: Code(s): F32.A - Depression, unspecified Status: Acute Assessment and Plan: -continue with bupropion -trazodone has been on hold. (5) Anxiety disorder, unspecified: Code(s): F41.9 - Anxiety disorder, unspecified Status: Acute Assessment and Plan: -continue bupropion -continue with Zoloft (6) HTN (hypertension): Qualifiers: Hypertension type: primary hypertension Qualified Code(s): I10 - Essential (primary) hypertension Code(s): I10 - Essential (primary) hypertension Status: Chronic Assessment and Plan: -continue with metoprolol if blood pressure allows -blood pressure is currently 146/59. (7) Combined systolic and diastolic congestive heart failure: Qualifiers: Heart failure chronicity: acute on chronic Qualified Code(s): I50.43 - Acute on chronic combined systolic (congestive) and diastolic (congestive) heart failure Code(s): I50.40 - Unspecified combined systolic (congestive) and diastolic (congestive) heart failure Status: Acute Assessment and Plan: - echo 2023 with EF 49%, G1 DD - given IV Lasix x1 (8) Hyponatremia: Code(s): E87.1 - Hypo-osmolality and hyponatremia Status: Acute Assessment and Plan: -Patient is chronically low. He is at his baseline his sodium was 130. (9) SANDI (acute kidney injury): Code(s): N17.9 - Acute kidney failure, unspecified Status: Acute Assessment and Plan: -his creatinine is 1.39 with a normal baseline his GFR is 49 and is typically greater than 60. -daily BMPs -hold home sulindac -may consider renal ultrasound. (10) Leukocytosis: Code(s): D72.829 - Elevated white blood cell count, unspecified Status: Acute Assessment and Plan: -infectious Disease has been consulted. -blood and sputum cultures are pending. -the patient was started on IV Cipro. -continue with ethambutol -the patient has a history of MA I colonization (11) SNEHA (mycobacterium avium-intracellulare): Code(s): A31.0 - Pulmonary mycobacterial infection Status: Acute Assessment and Plan: -infectious Disease has been consulted -pulmonary has been consulted -continue with current antibiotics. the patient currently on 4 L per nasal cannula with ABG showing hypoxia. -his pulse ox is anywhere from 92-96%. -the patient had received some morphine today and was given Narcan. chest CT IMPRESSION: 1. Moderate emphysema. 2. Diffuse lung disease with a peripheral and lower lung predominance with worsening in posterior segment right upper lobe, likely a combination of rounded atelectasis and pneumonia. 3. Chronic small right pleural effusion. Chronic bilateral pleural thickening. 4. Small sliding hiatal hernia. <Sadie Gilmore RN - Last Filed: 08/23/25 10:31> Clarified Diagnosis Clarified Diagnosis: chronic respiratory failure with hypoxia COPD without acute exacerbation <BRITTANY Ellis - Last Filed: 08/23/25 16:27>
--- NOTE | 2025-08-23 10:44 | WPDIDCN ---
Assessment and Plan Assessment and plan (1) Pneumonia: Code(s): J18.9 - Pneumonia, unspecified organism Status: Acute Assessment and Plan: -HCAP vs. other bacterial -Lower suspicion for progression of SNEHA infection (2) SNEHA (mycobacterium avium-intracellulare): Code(s): A31.0 - Pulmonary mycobacterial infection Status: Acute Assessment and Plan: -Remains on maintenance treatment. (3) Pneumonia: Qualifiers: Laterality: right Lung location: unspecified part of lung Pneumonia type: due to unspecified organism Qualified Code(s): J18.9 - Pneumonia, unspecified organism Code(s): J18.9 - Pneumonia, unspecified organism Status: Acute Assessment and Plan: -As above (4) COPD exacerbation: Code(s): J44.1 - Chronic obstructive pulmonary disease with (acute) exacerbation Status: Acute Assessment and Plan: -Management per primary service Plan -Obtain sputum culture if able -As patient has history of Pseudomonas in sputum and recent Cipro exposure, will change antibacterials to Meropenem -Resume pulmonary SNEHA therapy with daily Azithromycin/Rifampin/Ethambutol -Continue respiratory hygiene measures Discussed with patient. All questions answered Patient was seen via video telehealth consultation with the assistance of staff. Chart, data, and patient independently reviewed. Patient was located at [facility] while I was located in my [place] office. Received verbal consent from patient. HPI Data of Consult Date/Time: 08/23/25 10:44 Requesting Physician: Delvin Rivera MD Primary Care Provider: Rogelio Moeller DO Consult Narrative Reason for consult: Pneumonia Narrative: Russell Morse is a 80 year old male with history of COPD, pulmonary SNEHA who [facility]. Patient noted to have progression of known right-sided lung infiltrates. Patient has been on pulmonary SNEHA treatment with daily Azithromycin/Rifampin/Ethambutol. She was recently treated with high-dose Ciprofloxacin for pneumonia. Today, patient reports no sputum production, hemoptysis, shortness of breath or worsening pulmonary symptoms from baseline. Review of Systems Review of Systems: All systems reviewed & are unremarkable except as noted in HPI and below PMFSH Past Medical History Medical History (Updated 08/23/25 @ 07:30 by Mushtaq Mason MD) Pneumonia Anxiety Physical deconditioning NSVT (nonsustained ventricular tachycardia) Dysfunction of left eustachian tube Leukocytosis Heart failure with mildly reduced ejection fraction Chronic pulmonary aspergillosis Major depressive disorder, recurrent, mild Left foot drop Chronic kidney disease, stage 3 Spinal stenosis, lumbar region without neurogenic claudication Ischemic cardiomyopathy Echocardiogram 09/2021: Mildly reduced left ventricular systolic function EF of 45-50%, grade 1 diastolic dysfunction, inferior wall inferior septal wall basal inferior wall and mid inferior lateral wall hypokinesis with mild left atrial and large SVT (supraventricular tachycardia) 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 History of tobacco use Polio (1951) Other chronic pain Aortic stenosis Mild - Echo 05/15/2022 NSTEMI (non-ST elevated myocardial infarction) (08/2019) Atherosclerotic heart disease of [place] coronary artery without angina pectoris Abdominal aortic aneurysm, without rupture Seen on CT scan on 02/09/2018 Restless legs syndrome Surgical History Surgical History History of tonsillectomy and adenoidectomy History of repair of rotator cuff bilateral History of colonoscopy with polypectomy History of bowel resection due to obstruction Presence of coronary angioplasty implant and graft History of coronary artery stent placement X2 History of mandibular surgery (1986) reconstructive surgery right mandible related to cancer Family History Family History Mother Diabetes mellitus Acute myocardial infarction Father Colon cancer COPD (chronic obstructive pulmonary disease) Sibling Colon cancer Acute myocardial infarction Lung cancer COPD (chronic obstructive pulmonary disease) Sibling COPD (chronic obstructive pulmonary disease) Sibling Congestive heart failure Sibling Dementia Social History Social History Social History: Surrogate medical decision maker: Yessi Morgan, daughter. Code status: Full code. But he states he would not want to be on a ventilator long-term have a tracheostomy or feeding tube. Smoking packs per day: 2 Smoking cigarettes per day: 40.0 Years smoked: 60 Smoking pack-years: 120.00 Smoking status: Former smoker Second hand tobacco smoke exposure: No Alcohol intake: never Substance use: never Substance use type: does not use Other substance usage details: quit alcohol in 2010 Last use: Last alcohol use 2010 Do You Feel Safe in your Home?: Yes Lack of Transportation: No Lack of Food: Never True Current Housing: I Have Housing Concerned About Future Housing: No Difficulty Paying Gas/Electric Bills: No Difficulty Paying for Meds: No Currently Unemployed: No Education: High School Diploma/GED Difficulty w/ Childcare or Family Care: No Living arrangements: with family Additional living arrangements comments: . Lives in [place] with son and [id number]. 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: retired Additional occupation/education comments: [employer] Spiritual care concerns: No Agree to blood products: Yes Meds Home Medications and Allergies Home Medications ?Medication ?Instructions ?Recorded ?Confirmed ?Type aspirin 81 mg tablet,delayed 81 mg PO DAILY #90 tabs 06/15/23 08/23/25 Rx release fenofibrate 160 mg tablet 160 mg PO DAILY #90 tabs 09/16/23 08/23/25 Rx nebulizer accessories #1 ea 04/12/24 08/23/25 Rx nebulizer and compressor #1 ea 04/12/24 08/23/25 Rx albuterol sulfate 90 mcg/actuation 2 puff inhalation Q4H PRN 10/03/24 08/23/25 Rx aerosol inhaler Shortness Of Breath Or Wheezing #8.5 grams nitroglycerin 0.4 mg sublingual 0.4 mg sublingual Q5M PRN chest 12/08/24 08/23/25 Rx tablet pain #25 tabs sulindac 200 mg tablet 200 mg PO BID #180 tabs 04/07/25 08/23/25 Rx sertraline 50 mg tablet 50 mg PO DAILY #90 tabs 04/20/25 08/23/25 Rx trazodone 100 mg tablet 100 mg PO HS Insomnia #90 tabs 05/24/25 08/23/25 Rx esomeprazole magnesium 20 mg 20 mg PO DAILY 06/15/25 08/23/25 History capsule,delayed release ethambutol 400 mg tablet 1,200 mg PO DAILY 06/15/25 08/23/25 History tamsulosin 0.4 mg capsule 0.4 mg PO BID 06/15/25 08/23/25 History baclofen 10 mg tablet 10 mg PO HS #30 tabs 07/02/25 08/23/25 Rx benzonatate 100 mg capsule 200 mg (2 x 100 mg) PO TID PRN 07/02/25 08/23/25 Rx Cough #30 caps guaifenesin 600 mg tablet, 1,200 mg (2 x 600 mg) PO Q12HR #60 07/02/25 08/23/25 Rx extended release 12 hr (Mucus tabs Relief ER) ipratropium 0.5 mg-albuterol 3 mg 3 ml inhalation Q6HRT #180 mL 07/02/25 08/23/25 Rx (2.5 mg base)/3 mL nebulization soln morphine 30 mg tablet,extended 30 mg PO Q12H PRN pain 3 days #6 07/02/25 08/23/25 Rx release tabs olopatadine 0.2 % eye drops (Eye 1 drp EACH EYE DAILY PRN itching 07/02/25 08/23/25 Rx Allergy Itch Relief) #5 mL bupropion HCl 150 mg tablet,12 hr 150 mg PO BID #180 tabs 07/03/25 08/23/25 Rx sustained-release lorazepam 0.5 mg tablet (Ativan) 0.5 mg PO DAILY PRN anxiety #14 07/23/25 08/23/25 Rx tabs baclofen 10 mg tablet 10 mg PO Q8H PRN muscle spasm 07/29/25 08/23/25 History bisacodyl 10 mg rectal suppository 10 mg RECTAL DAILY PRN constipation 07/29/25 08/23/25 History cilcitriol capsule See Rx Instructions .Route 07/29/25 08/23/25 History .COMPLEX hypocalcemia magnesium hydroxide 400 mg/5 mL 30 ml PO HS PRN constipation 07/29/25 08/23/25 History oral suspension (Milk of Magnesia) metoprolol tartrate 50 mg tablet 50 mg PO HS 07/29/25 08/23/25 History (Lopressor) naloxone 4 mg/actuation nasal 4 mg intranasal Q2M 08/23/25 08/23/25 History spray (Narcan) Allergies Allergy/AdvReac Type Severity Reaction Status Date / Time clonazepam AdvReac Severe Drowsy Verified 08/22/25 20:21 roflumilast (From [facility]) AdvReac Severe Diarrhea Verified 08/22/25 20:21 Vital Signs Vital Signs - 24 hr 08/22/25 20:08 08/22/25 21:59 08/22/25 22:58 Temperature 97.6 F Pulse Rate 64 71 82 Respiratory Rate 17 16 16 Blood Pressure 98/41 L 128/50 L Pulse Oximetry 100 100 93 Oxygen Delivery Nasal Cannula Oxygen Flow Rate 4 Fraction of Inspired Oxygen 08/22/25 23:25 08/23/25 00:29 08/23/25 00:51 Temperature Pulse Rate 81 80 80 Respiratory Rate 19 18 17 Blood Pressure 94/75 L 120/48 L 133/57 L Pulse Oximetry 96 97 96 Oxygen Delivery Oxygen Flow Rate Fraction of Inspired Oxygen 08/23/25 02:30 08/23/25 02:30 08/23/25 03:42 Temperature 98.3 F Pulse Rate 80 78 88 Respiratory Rate 17 17 Blood Pressure 146/59 H Pulse Oximetry 96 95 Oxygen Delivery Nasal Cannula Oxygen Flow Rate 4 Fraction of Inspired Oxygen 08/23/25 04:19 08/23/25 04:23 08/23/25 04:29 Temperature Pulse Rate 71 71 70 Respiratory Rate 20 20 20 Blood Pressure Pulse Oximetry 95 Oxygen Delivery Nasal Cannula Oxygen Flow Rate 4 Fraction of Inspired Oxygen 36 08/23/25 06:00 08/23/25 08:00 08/23/25 09:10 Temperature 98.1 F Pulse Rate 72 70 Respiratory Rate 20 Blood Pressure 104/72 Pulse Oximetry 100 97 Oxygen Delivery Nasal Cannula Oxygen Flow Rate 2 Fraction of Inspired Oxygen 08/23/25 09:10 08/23/25 09:24 Temperature Pulse Rate 73 80 Respiratory Rate 20 20 Blood Pressure Pulse Oximetry Oxygen Delivery Oxygen Flow Rate Fraction of Inspired Oxygen Exam Narrative: Gen: NAD Pulm: no conversational dyspnea, minimal tachypnea Abd: nondistended Ext: no c/c/e Derm: no rash Results Labs 08/23/25 11:27 08/23/25 11:27 Labs: Short CBC 08/22/25 Range/Units 20:34 WBC 11.0 H (4.5-10.0) K/mm3 Hgb 7.3 L (14.0-18.0) g/dL Hct 24.3 L (42.0-52.0) % Plt Count 164 (150-375) k/mm3 BMP 08/22/25 20:34 Sodium 130 L Potassium 4.1 Chloride 97 L Carbon Dioxide 28 BUN 28 H Creatinine 1.39 H Glucose 108 Calcium 8.7 Liver Function 08/22/25 Range/Units 20:34 Total Bilirubin 1.5 H (0.2-1.3) mg/dL AST 36 (17-59) U/L ALT 20 (6-50) U/L Alkaline Phosphatase 108 (38-126) U/L Albumin 2.9 L (3.5-5.1) g/dL Urine 08/22/25 Range/Units 21:30 Urine Color Dark yellow (Yellow) Urine Appearance Cloudy H (Clear) Urine pH 5.5 (5.0-9.0) Ur Specific [place] 1.026 (1.001-1.035) Urine Protein 1+ H (Negative) mg/dL Urine Glucose (UA) Negative (Negative) mg/dL
--- NOTE | 2025-08-23 10:48 | PM.CNPUL ---
Assessment and Plan Assessment and plan (1) COPD (chronic obstructive pulmonary disease): Code(s): J44.9 - Chronic obstructive pulmonary disease, unspecified Status: Acute Assessment and Plan: Gold grade 2 group E COPD Regarding his COPD, patient with 60 pack year tobacco use quit in 2019, alpha 1 anti trypsin genotype MM, [id number] apical predominant centrilobular and paraseptal emphysema on his CT scan from 10/11/2021. Of note he has had COVID pneumonia on 09/10/2021 and Pseudomonas aeruginosa on 10/10/2021 and 04/26/2025 and 06/16/2025. His PFTs from 12/16/2023 show mild obstruction with FEV1 68%, ratio 61%. No bronchodilator response, hyperinflation, severely decreased DLCO the remains mildly decreased when adjusted for alveolar volume. Compared to 01/01/2022 had been a significant decrease in the FVC, FEV1, total lung capacity, functional residual capacity and diffusing capacity. When admitted for pneumonia had an ABG on 02/25/2024 on 3 L nasal cannula 7.44/36/67. 10/04/2024: ABG on 2 L 7.43/41/75. 06/29/2025: 2 L ABG 7.37/49/113. 10/04/2024: White blood cell count 11.1 eosinophils 3.2%=355/uL. 04/09/2024 white blood cell count 11.1, eosinophils 0.4%=44/uL. 06/28/2025 white blood cell count 14.8, 1.8%=266 uL. 08/22/2025: White blood cell count 11.0, eosinophils 0% equals 0 per micro L. 08/23/25: Patient tells me he has 2 days worsening cough and breathing but denied fever, chills, change in his phlegm volume or production and no hemoptysis. He has no wheezing on exam. He is debilitated, he has a poor ineffective cough and can not clear his secretions. We has chronic hypoxemic respiratory failure on 4 L nasal cannula at rest and with activity and currently is on 2 L nasal cannula. Patient had CT scan of the chest compared to 07/29/2025 with no change in his emphysema, small right and trace left pleural effusion, worse infiltrate posterior segment of the right upper lobe, superior segment of the left lower lobe, dependent areas of the right lower lobe and no change in the dependent infiltrates in his left lower lobe. Plan: I do not feel this is a COPD exacerbation. He has no wheezing on exam. I do not recommend systemic or inhaled steroids. In the past the patient has required DuoNebs q.6, Mucomyst nebulizers q.6, guaifenesin 1200, vest b.i.d., and Cornet flutter valve Q 4 to help him expectorate and I will initiate these treatments. The patient is at very high risk for mucus plugging which can result in acute hypoxemia. Apparently was [facility]emic [facility] the [facility] but in the emergency department he was on his baseline 4 L with saturations 100%. He may have had a mucus plug at the [facility]. Regarding his new infiltrates on his CT scan. This is recurring pattern for this patient. Possible etiology of these recurrent infiltrates include atelectasis, mucus plugging, or infection. I will treat him aggressively for atelectasis and mucus plugging as above. He has no other symptoms of pulmonary bacterial infection, His oxygen requirements are actually improved from his baseline. procalcitonin 0.5. I am not convinced the patient has a new bacterial infection in his lungs. He was empirically started on ciprofloxacin and he tells me he is back at his baseline after 1 dose. Consider discontinuation of ciprofloxacin. I have sent a respiratory pathogen panel, urine for Legionella, urine for pneumococcal, serum mycoplasma IgM, COVID, influenza, RSV RT PCR. He was given 1 dose of IV Lasix and has responded to IV Lasix in the past. agree with gentle diuresis as tolerated by his cardiac and renal systems. Discussed with Patricia Jeffers, will follow with you. (2) Chronic hypoxic respiratory failure, on home oxygen therapy: Code(s): J96.11 - Chronic respiratory failure with hypoxia; Z99.81 - Dependence on supplemental oxygen Status: Acute Assessment and Plan: 08/23/2025: Patient's baseline is 4 L nasal cannula and currently his on 2 L nasal cannula with saturations 97%. Plan: Goal saturation 90-94%. Adjust oxygen accordingly. 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 patient started on rifabutin 300 q.day, azithromycin 500 mg q.day, ethambutol 1200 mg q.day on 06/05/2025. Patient with a history of SNEHA in sputum, multiple pulmonary infections requiring antibiotics on 02/25/2024, 04/10/2024, 09/08/2024, 10/04/2024, 11/04/2024, 11/20/2024, 12/02/2024, 03/02/2025, 04/25/2025, 05/12/2025, 05/22/2025, 06/15/2025, 06/28/2025, 07/18/2025, and 07/29/2025. Other comorbidities include COPD and history of fluid overload. Patient had CT scan of the chest compared to 07/29/2025 with no change in his emphysema, small right and trace left pleural effusion, worse infiltrate posterior segment of the right upper lobe, superior segment of the left lower lobe, dependent areas of the right lower lobe and no change in the dependent infiltrates in his left lower lobe. 08/23/25: Patient reportedly sent to the hospital with decrease oxygen saturation but currently he is on 2 L nasal cannula now with a baseline of 4 L nasal cannula. He says that he is breathing normally after treatment with bronchodilators, IV fluids, 1 dose of Cipro. He is afebrile and has no respiratory complaints. His procalcitonin is 0.5. Plan: Infectious disease consult placed. Await recommendations regarding ethambutol 1200 mg p.o. q.day, azithromycin 250 mg p.o. q.day, and rifampin 600 mg p.o. q.day. 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 He has required antibiotics for lung infections on: 02/25/2024, 04/10/2024, 09/08/2024, 10/04/2024, 11/04/2024, 11/20/2024, 12/02/2024, 03/02/2025, 04/25/2025, 05/12/2025, 05/22/2025, 05/30/2025, 06/15/2025, 06/28/2025, 07/18/2025, and 07/29/2025. Patient recently admitted to the hospital from 06/15/2025 to 06/23/2025 for shortness of breath and hypoxia. he was treated with Levaquin, pulmonary hygiene maneuvers and his azithromycin was decreased from 500 mg p.o. q.day to 250 mg p.o. q.day due to hearing decrease. Patient left the hospital on 06/23/2024 in no respiratory distress but he was weak and fatigued easily. Patient recently admitted to the hospital from 06/28/2025 through 07/02/2025 for weakness, shortness of breath and hypoxia. he was 9 compliant with his SNEHA medicines which were restarted. He was deconditioned and could walk 80 ft. He was treated with DuoNebs q.6, Mucomyst nebulizers q.6, guaifenesin 1200, vest b.i.d., Cornet flutter valve Q 4 because he was debilitated and could not expectorate. Discharged to SNF facility Patient recently admitted to the hospital 07/18/2025 through 07/23/[address] head negative. Thought to be related from his transition from [facility] to back home. Discharged to [facility]. Patient recently admitted to the hospital 07/29/2025 through 08/05/2025 for possible community-acquired pneumonia, Mild SANDI. Treated with ciprofloxacin. 08/23/2023: Patient presented from [facility] with altered mental status and decrease oxygen saturation. Apparently he was lethargic, not getting out of bed and his mental status had decreased to a and O x1. He was given Narcan with no improvement. Blood pressure was 98/41, heart rate 66 4, respirations 17, afebrile, 4 L nasal cannula saturation 100%. He had coarse breath sounds bilaterally with no wheezing. White blood cell count 11.0, creatinine 1.39, serum bicarb 28. Venous blood gas on 4 L nasal cannula 7.37/45/ less than 27. Lactic acid 1.5. Patient was given 1 L IV fluid with improvement in blood pressure. Patient was started on ciprofloxacin. Patient had CT scan of the chest compared to 07/29/2025 with no change in his emphysema, small right and trace left pleural effusion, worse infiltrate posterior segment of the right upper lobe, superior segment of the left lower lobe, dependent areas of the right lower lobe and no change in the dependent infiltrates in his left lower lobe. Currently the patient tells me his name. States he is in [facility]. States the date is 08/28/2025. 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 Correctly names the pen, pen cap and clip of the [place] cap. He is nonfocal if the with his upper extremities and lower extremities. When I talked to the patient this morning he said that on 08/21/2025 he was normal during the day but later that night he developed shortness of breath, worse cough with minimal phlegm production and no blood. He denied fever. He slept that night but on 08/22/2025 he had worsening breathing, more phlegm production and cough. he complains that he can not expectorate his phlegm. Symptoms progressed and he presented to the emergency room. He is breathing normal, his cough is gone he has no phlegm and no blood. He is afebrile. When I enter the room his saturations on 4 L were 98%. I decreased him to 2 L and his saturations were 97%. when I asked the patient to cough as before he is debilitated, weak and has an ineffective cough and cannot clear his secretions. He is afebrile. White blood cell count 11.8, creatinine 1.07, BUN 26, BNP is 2630, CRP is pending, procalcitonin is pending. DATA (infectious disease): 06/23/25:. His sputum shows moderate growth of Pseudomonas aeruginosa (recurrent) and Lucia. Pseudomonas sensitive to amikacin, aztreonam, ceftazidime, cefepime, gentamicin, meropenem, Zosyn and tobramycin. Intermediate to ciprofloxacin and imipenem. Resistant to Levaquin. 12/15/2024 sputum with AFB verified on 01/14/25 and grew SNEHA on 03/03/25. Sensitivities 03/20/25. On 03/20/25 patient referred to [facility] with appointment scheduled for 05/02/2025. Sputum on 12/16/2024 with AFB verified on 01/20/25 and grew SNEHA on 02/01/25.?Sensitivities 03/28/25. 2024 admissions: * 05/30/2025 [facility] admission shortness of breath; transferred to [place] 06/04 to 06/07; discharged on Levaquin to continue until June 18; continue SNEHA meds * 05/12/2025, ER visit, shortness of breath, home. * 04/25/25 -04/28/25; admitted [facility] respiratory distress, hypoxemia, transferred to [place]; ID saw him 05/02/25; SNEHA; started Rx w azithromycin 500 mg/D, Rifabutin 300 mg/D, ethambutol 1200 mg/ day initial sputum with SNEHA was 12/16/2024 with AFB verified on 01/20/25 and grew SNEHA on 02/01/25.?Sensitivities 03/28/25. QuantiFERON gold was negative on 01/24/25. ORGANISM: MYCOBACTERIUM AVIUM COMPLEX AMIKACIN: 16 S mcg/mL AMIKACIN (LIPOSOMAL, INHALED): 16 S mcg/mL CIPROFLOXACIN: >8 mcg/mL CLARITHROMYCIN: 2 S mcg/mL CLOFAZIMINE: 0.25 mcg/mL DOXYCYCLINE: >8 mcg/mL LINEZOLID: 16 I mcg/mL MINOCYCLINE: >8 mcg/mL MOXIFLOXACIN: 4 R mcg/mL RIFABUTIN: 1 mcg/mL RIFAMPIN: >4 mcg/mL STREPTOMYCIN: >32 * This is a corrected result. * A prior result that was reported as final has been changed. 1. Mycobacterium avium complex M.I.C. RX --------- --- Rifampin AFB >4 S Streptomycin AFB R Amikacin AFB 16 S Moxifloxacin AFB R DATA (imaging and PFT): 08/22/25: EXAMINATION:CT diagnostic chest w con DATE: 08/22/2025 22:25 INDICATION: Hypoxia. TECHNIQUE: Computed tomography (CT) of the chest was performed with 75 mL Omnipaque 350 intravenous contrast. Automated exposure control and iterative reconstruction technique were employed. The dose-length product (DLP) was 229.16 mGy-cm. COMPARISON: Chest CT 07/29/2025 FINDINGS: There is moderate emphysema. There are small right and trace left pleural effusions with pleural thickening. There is chronic peripheral septal thickening in the lungs. There are peripheral airspace opacities in all lobes with a lower lung predominance with worsening in posterior segment right upper lobe. There are tree-in-bud opacities in left upper lobe posteriorly. There are nodules in the thyroid measuring up to 5 mm, likely not clinically significant. The heart size is normal. There are coronary artery calcifications. No pericardial effusion. There is mild mediastinal lymphadenopathy, likely reactive. Calcified mediastinal lymph nodes are consistent with old granulomatous disease. Calcifications in the spleen are consistent with old granulomatous disease. There are cysts in the liver measuring up to 12 mm. There are bridging endplate osteophytes at multiple levels in the spine, consistent with diffuse idiopathic skeletal hyperostosis (DISH). There is moderate thoracic spondylosis. IMPRESSION: 1. Moderate emphysema. 2. Diffuse lung disease with a peripheral and lower lung predominance with worsening in posterior segment right upper lobe, likely a combination of rounded atelectasis and pneumonia. 3. Chronic small right pleural effusion. Chronic bilateral pleural thickening. 4. Small sliding hiatal hernia. 06/29/2025: Clinical Indication: Hypoxia CT Scan of the Chest with Contrast: Technique: Contiguous sections were acquired throughout the chest after intravenous administration of 100 cc of Omnipaque 350. Dose reduction technique was used on this scan by utilizing automated exposure control and iterative reconstruction technique. The dose-length product (DLP) was 283.61 mGy-cm. COMPARISON: 06/01/2025 Findings: Multiple shotty/minimally enlarged mediastinal lymph nodes are present along the right paratracheal stripe and AP window region. There is no filling defect in the pulmonary arterial tree to suggest pulmonary embolus. There is no evidence of aortic dissection or aneurysm. No pericardial effusion. There are small bilateral pleural effusions. Bibasilar consolidation with air bronchograms is present, which could reflect atelectasis/pulmonary edema versus pneumonia. There is probable chronic scarring or interstitial change in the right middle lobe. There are patchy areas of consolidation the left upper lobe and right upper lobe, which could reflect additional or new versus pneumonia. There is mild to moderate emphysema.. Images through the upper abdomen reveal no abnormalities. Impression: No evidence of pulmonary embolus, aortic dissection, or aortic aneurysm. Patchy bilateral consolidation, suggestive of pneumonia and possible superimposed bibasilar atelectasis. There is significant worsening in the left upper lobe as compared to prior exam. Otherwise, remaining areas of airspace disease are similar to prior exam in the remainder of the lungs. Pulmonary edema not completely excluded, though felt to be somewhat less likely given the appearance and distribution of findings. Possible chronic scarring or atelectasis in the right middle lobe. Minimal pleural effusions. 05/12/25: EXAMINATION: CTA chest PE protocol DATE: 05/12/2025 14:25 INDICATION: Dyspnea. Elevated d-dimer. TECHNIQUE: Computed tomography (CT) pulmonary angiogram of the chest was performed with 100 mL Omnipaque-350 intravenous contrast. Additional 3D reconstructions utilizing coronal maximum intensity projection (MIP) were performed. Automated exposure control and iterative reconstruction technique were employed. The dose-length product was 310.42 mGy-cm. COMPARISON: 04/26/2025 FINDINGS: No pulmonary embolism. Mild emphysema. Bronchial wall thickening in the bilateral lower lobes with some frothy appearing mucous in the right bronchus intermedius and right lower lobar bronchi consistent with bronchitis. Unchanged small right pleural effusion is been some interval improvement in groundglass opacities and patchy consolidation in the right lower lobe consistent with improving pneumonia. There is unchanged region of peripheral round atelectasis in the posterior left lower lobe with associated architectural distortion and volume loss. Additional unchanged linear discoid atelectasis at the right middle lobe. Heart size is normal. Atherosclerotic coronary artery calcific location. No pericardial effusion. Thoracic aorta is normal in caliber with no dissection. Enlargement of the central pulmonary arteries consistent with pulmonary arterial hypertension. No pathologically enlarged thoracic lymphadenopathy. Moderate-sized sliding-type hiatal hernia. Multiple low-attenuation cysts scattered throughout the liver measuring up to 1.5 cm. There is also a 1.8 cm cyst at the upper pole the right kidney. Mild thoracic spondylosis with bridging osteophytes at multiple levels consistent with diffuse idiopathic skeletal hyperostosis (DISH). IMPRESSION: 1. No pulmonary embolism. 2. Decreasing consolidation in the right lower lobe consistent with improving pneumonia. 3. Unchanged small right pleural effusion. 4. Mild emphysema and enlargement of the central pulmonary arteries consistent with pulmonary arterial hypertension. 5. Moderate-sized sliding-type hiatal hernia. 04/26/2025: EXAMINATION: CTA chest PE protocol DATE: 04/26/2025 13:46 CDT INDICATION: Shortness of breath TECHNIQUE: Computed tomographic angiography (CTA) of the chest was performed with 100 mL Omnipaque-350 intravenous contrast. The dose-length product was 256.22 mGy-cm. Maximum intensity projection 3D-reconstructions of the aorta and other arteries were constructed by the technologist on a separate workstation. Automated exposure control and iterative reconstruction technique were employed. COMPARISON: Chest x-ray dated 04/25/[address] dated 11/20/2024. FINDINGS: Small right pleural effusion. Trace left pleural effusion. There is mediastinal lymphadenopathy. There is right hilar lymphadenopathy. There is atherosclerosis of the aorta and coronary arteries. Small hiatal hernia. Heart size normal. Pulmonary arteries are enlarged, consistent with pulmonary hypertension. Study is technically adequate without evidence for pulmonary embolism. There is patchy bilateral airspace disease of the right upper, right middle and bilateral lower lobes, consistent with multifocal pneumonia. No endobronchial lesions. There is emphysema. No suspicious pulmonary nodules or masses. Mild thoracic spondylosis. No focal lytic or blastic lesions. IMPRESSION: 1. Multifocal airspace disease, consistent with pneumonia. 2: Bilateral pleural effusions, right greater than left. 3: Mediastinal lymphadenopathy, likely reactive. 4.: Pulmonary artery enlargement, consistent with pulmonary hypertension. 5: Emphysema. My read: I have compared this to CT scans from 11/20/2024 and 08/29/2024 and 02/25/2024. Current CT shows no PE, , Small right pleural effusion, worsening consolidation and infiltrates in the right lower lobe compared to 11/20/2024 and 02/25/2024. Compared to CT scan on 02/25/2024 currently there are some areas of improved consolidation in the right lower lobe and some different areas with worsening consolidations in the right lower lobe. There is unchanged consolidation in the posterior left lower lobe with no change compared to 11/20/2024, 08/29/2024 and that have improved from 02/25/2024. Currently there are patchy consolidations in the right middle lobe some which were present on 11/20/2024 and some that are new. There were no infiltrates on 08/29/2024 in the right middle lobe. 01/02/25: Modified barium swallow: Impression: Moderate dysphagia 11/20/24: EXAMINATION:. Recommendations: Regular but easy to chew diet with regular liquids but patient must use chin tuck posture with all eating and drinking to prevent pharyngeal residual and instances of laryngeal penetration and aspiration. He was referral to outpatient speech therapy. 12/14/24: CRP 3.6, ESR 134, CPK 43, Aspergillus Niger IgE 0.31, very low level. Aspergillus Niger antibody negative, Aspergillus flatus antibody negative. Aspergillus fumigatus antibody negative. Rheumatoid factor 12.9, anti CCP antibody less than 16. TERRA screen positive with an anti-DNA antibody 27 (positive greater than 10), Anca screen negative, hypersensitivity pneumonitis panel negative. 01/24/2025: QuantiFERON gold negative. IgE 691 normal less than 114, rheumatoid factor 12.9. IgG 693, IgM 90, IgA 212, all normal. Aldolase 5.0 11/20/2024: CTA chest PE protocol INDICATION: Hypoxia elevated d-dimer COMPARISON: 08/29/2024 and 10/11/2021. FINDINGS: No filling defects within the main or proximal pulmonary arteries. The thoracic aorta is unremarkable. No aneurysmal dilatation or dissection. The heart is of normal size, without pericardial effusion. Panlobular emphysematous disease is identified. Patchy groundglass opacification detected bilaterally. Small bilateral pleural effusions with adjacent compressive atelectasis Multiple subcentimeter areas of decreased attenuation within the liver, unchanged dating back to 10/11/2021. IMPRESSION: No pulmonary embolus. No aneurysmal dilatation or dissection within the thoracic aorta. Small bilateral pleural effusions with adjacent compressive atelectasis. 08/16/2024: Overnight oximetry on 3 L nasal cannula. The report in the computer status overnight oximetry on room air but this is mislabeled as the test was performed on 3 L. Recording duration 8 hours and 39 minutes. Basal saturation 92.1%. High saturation 96%. Low saturation 79%. Time with saturation less than or equal to 88% was 4 minutes and 58 seconds. I will continue oxygen 3 L at night. 06/24/2024: This is a 6 minute walk test. The test was performed and interpreted in accordance with the 2014 ERS/ATS task force guidelines. Of note, patient used to wheeled walker for stability and the testing was performed on his home portable oxygen concentrator at 3 L with pulse dose. Findings: The patient's resting 3 L oxygen saturation measured by pulse oximetry was 95% and heart rate was 80 bpm. Patient ambulated for 137 meters and oxygen saturation remained 91 to 92%. Heart rate at the end of the study was 94 bpm. The patient did not have rest or exertional hypoxemia on 3 L nasal cannula pulse dose with his portable oxygen concentrator. 02/25/24 - CTA chest (ER) - No PE identified. 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 There is patchy consolidation in the right middle and bilateral lower lobes with additional regions of tree-in-bud opacity scattered throughout both lungs consistent with multifocal pneumonia. There is associated bronchial wall thickening and mucous plugging in the bilateral lower lobes. Tiny left pleural effusion. No septal line thickening to suggest pulmonary edema. No pneumothorax. Mild cardiomegaly. Atherosclerotic coronary artery calcifications. No pericardial effusion. 02/25/2024: ABG on 4 L cannula 7.39/35/63 01/15/24 - Home O2 eval - Required 2L/min O2 with ambulation and none at rest. 12/16/23 - PFT The test was performed and results interpreted in accordance with the 2019 and 2005 ATS/ERS Task Force guidelines respectively using the Global Lung Function Initiative-2012 reference equations. Patient demonstrated good effort and cooperation. Reproducibility criteria were met. The quality of the pre bronchodilator spirometry maneuver was Grade A and post bronchodilator spirometry maneuver was Grade A. Findings: Spirometry: There is decreased maximal expiratory airflow at all lung volumes with concave expiratory flow tracing. The contour the inspiratory flow tracing is normal. The pre bronchodilator FVC is 3.33 L, 82% predicted. The pre bronchodilator FEV1 is 2.02 L, 68% predicted. The pre bronchodilator FEV1: FVC ratio 61%. The post bronchodilator FVC is 3.41 L, representing a 2% increase. The post bronchodilator FEV1 is 2.09 L, representing a 3% increase. The post bronchodilator FEV1: FVC ratio 61%. Plethysmography: The total lung capacity is 6.43 L, 89% predicted. The functional residual capacity is 4.14 L, 106% predicted. The residual volume is 3.10 L, 115% predicted. The residual volume: Total lung capacity ratio is 48%. Diffusing capacity: The diffusing capacity unadjusted for hemoglobin and carboxyhemoglobin is 9.0, 37% predicted. The diffusing capacity adjusted for alveolar volume is 2.29, 64% predicted. Comparison to previous pulmonary function testing on 01/01/2022 the post bronchodilator FVC has decreased from 4.38 L to 3.41 L. The post bronchodilator FEV1 has decreased from 3.11 L to 2.09 L. the total lung capacity is decreased from 7.39 L to 6.43 L. The functional residual capacity has decreased from 4.95 L to 4.14 L. The residual volume is unchanged from 2.93 L to 3.10 L. The diffusing capacity unadjusted for hemoglobin and carboxyhemoglobin is decreased from 14.9 to 9.0. The diffusing capacity adjusted for alveolar volume decreased from 2.63 to 2.29 Impression: There is a mild obstructive abnormality. There is no significant improvement after inhaling a single dose of albuterol. The increase in residual volume to total lung volume ratio is consistent with hyperinflation from an obstructive abnormality. The diffusing capacity unadjusted for hemoglobin and carboxyhemoglobin is severely decreased and remains mildly decreased when adjusted for alveolar volume. Compared to prior pulmonary function testing on 01/01/2022 there has been a significant decrease in the FVC, FEV1, total lung capacity, functional residual capacity and diffusing capacity with no significant change in the residual volume. 09/16/23 - Home O2 eval - Required 2L/min O2 with ambulation and none at rest. 01/01/22 - Home O2 eval - Patient did not require supplemental oxygen at rest or with exertion. 01/01/22 - PFTs - Mild obstructive abnormality with normal FEV1 without significant improvement after inhaling a single dose of albuterol. Lung volumes normal. The diffusing capacity unadjusted for hemoglobin is moderately decreased and normalizes when adjusted for alveolar volume. 12/18/21 - Overnight oximetry on room air - Time with saturation less than or equal to 88% was 4.0 minutes. Patient does not qualify for supplemental oxygen at night. 10/10/2021 - ABG on 4L NC - 7.44/43/70. 10/20/21 - Chest XR - Persistent patchy bilateral airspace disease with possible improvement in the left lung, compatible with pneumonia. 10/11/2021 - CTA chest - Extensive bilateral pulmonary infiltrates and likely reactive hilar or mediastinal adenopathy. Small right pleural effusion. No evidence of pulmonary embolism. 10/11/2021 - Echo - LV systolic function mildly reduced, EF 45-50%. Grade I diastolic dysfunction. The inferior wall, inferoseptal wall, basal inferolateral wall, and mid inferolateral wall are hypokinetic. Mild LA enlargement. No pulmonary hypertension. Review of Systems Constitutional: Constitutional: Reports no additional constitutional complaints Eyes: Eyes: Reports no additional eye complaints ENT: Reports system reviewed and no additional complaints, except as documented Cardiovascular: Cardiovascular: Reports no additional cardiovascular complaints Respiratory: Respiratory: Reports no additional respiratory complaints Gastrointestinal: Gastrointestinal: Reports no additional gastrointestinal complaints Musculoskeletal: Musculoskeletal: Reports no additional musculoskeletal complaints Neurologic: Reports system reviewed and no additional complaints, except as documented Psychiatric: Psychiatric: Reports no additional psychiatric complaints Endocrine: Endocrine: Reports no additional endocrine complaints Hematologic/Lymphatic: Hematologic/Lymphatic: Reports no additional hematologic/lymphatic complaints Allergic/Immunologic: Allergic/Immunologic: Reports no additional allergic/immunologic complaints [facility] Past Medical History Medical History (Updated 08/23/25 @ 07:30 by Mushtaq Mason MD) Pneumonia Anxiety Physical deconditioning NSVT (nonsustained ventricular tachycardia) Dysfunction of left eustachian tube Leukocytosis Heart failure with mildly reduced ejection fraction Chronic pulmonary aspergillosis Major depressive disorder, recurrent, mild Left foot drop Chronic kidney disease, stage 3 Spinal stenosis, lumbar region without neurogenic claudication Ischemic cardiomyopathy Echocardiogram 09/2021: Mildly reduced left ventricular systolic function EF of 45-50%, grade 1 diastolic dysfunction, inferior wall inferior septal wall basal inferior wall and mid inferior lateral wall hypokinesis with mild left atrial and large SVT (supraventricular tachycardia) 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 History of tobacco use Polio (1951) Other chronic pain Aortic stenosis Mild - Echo 05/15/2022 NSTEMI (non-ST elevated myocardial infarction) (08/2019) Atherosclerotic heart disease of [place] coronary artery without angina pectoris Abdominal aortic aneurysm, without rupture Seen on CT scan on 02/09/2018 Restless legs syndrome Surgical History Surgical History History of tonsillectomy and adenoidectomy History of repair of rotator cuff bilateral History of colonoscopy with polypectomy History of bowel resection due to obstruction Presence of coronary angioplasty implant and graft History of coronary artery stent placement X2 History of mandibular surgery (1986) reconstructive surgery right mandible related to cancer Family History Family History Mother Diabetes mellitus Acute myocardial infarction Father Colon cancer COPD (chronic obstructive pulmonary disease) Sibling Colon cancer Acute myocardial infarction Lung cancer COPD (chronic obstructive pulmonary disease) Sibling COPD (chronic obstructive pulmonary disease) Sibling Congestive heart failure Sibling Dementia Social History Social History Social History: Surrogate medical decision maker: Yessi Morgan, daughter. Code status: Full code. But he states he would not want to be on a ventilator long-term have a tracheostomy or feeding tube. Smoking packs per day: 2 Smoking cigarettes per day: 40.0 Years smoked: 60 Smoking pack-years: 120.00 Smoking status: Former smoker Second hand tobacco smoke exposure: No Alcohol intake: never Substance use: never Substance use type: does not use Other substance usage details: quit alcohol in 2010 Last use: Last alcohol use 2010 Do You Feel Safe in your Home?: Yes Lack of Transportation: No Lack of Food: Never True Current Housing: I Have Housing Concerned About Future Housing: No Difficulty Paying Gas/Electric Bills: No Difficulty Paying for Meds: No Currently Unemployed: No Education: High School Diploma/GED Difficulty w/ Childcare or Family Care: No Living arrangements: with family Additional living arrangements comments: . Lives in [place] with son and [id number]. 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 Spiritual care concerns: No Agree to blood products: Yes Meds Home Medications and Allergies Home Medications ?Medication ?Instructions ?Recorded ?Confirmed ?Type aspirin 81 mg tablet,delayed 81 mg PO DAILY #90 tabs 06/15/23 08/23/25 Rx release fenofibrate 160 mg tablet 160 mg PO DAILY #90 tabs 09/16/23 08/23/25 Rx nebulizer accessories #1 ea 04/12/24 08/23/25 Rx nebulizer and compressor #1 ea 04/12/24 08/23/25 Rx albuterol sulfate 90 mcg/actuation 2 puff inhalation Q4H PRN 10/03/24 08/23/25 Rx aerosol inhaler Shortness Of Breath Or Wheezing #8.5 grams nitroglycerin 0.4 mg sublingual 0.4 mg sublingual Q5M PRN chest 12/08/24 08/23/25 Rx tablet pain #25 tabs sulindac 200 mg tablet 200 mg PO BID #180 tabs 04/07/25 08/23/25 Rx sertraline 50 mg tablet 50 mg PO DAILY #90 tabs 04/20/25 08/23/25 Rx trazodone 100 mg tablet 100 mg PO HS Insomnia #90 tabs 05/24/25 08/23/25 Rx esomeprazole magnesium 20 mg 20 mg PO DAILY 06/15/25 08/23/25 History capsule,delayed release ethambutol 400 mg tablet 1,200 mg PO DAILY 06/15/25 08/23/25 History tamsulosin 0.4 mg capsule 0.4 mg PO BID 06/15/25 08/23/25 History baclofen 10 mg tablet 10 mg PO HS #30 tabs 07/02/25 08/23/25 Rx benzonatate 100 mg capsule 200 mg (2 x 100 mg) PO TID PRN 07/02/25 08/23/25 Rx Cough #30 caps guaifenesin 600 mg tablet, 1,200 mg (2 x 600 mg) PO Q12HR #60 07/02/25 08/23/25 Rx extended release 12 hr (Mucus tabs Relief ER) ipratropium 0.5 mg-albuterol 3 mg 3 ml inhalation Q6HRT #180 mL 07/02/25 08/23/25 Rx (2.5 mg base)/3 mL nebulization soln morphine 30 mg tablet,extended 30 mg PO Q12H PRN pain 3 days #6 07/02/25 08/23/25 Rx release tabs olopatadine 0.2 % eye drops (Eye 1 drp EACH EYE DAILY PRN itching 07/02/25 08/23/25 Rx Allergy Itch Relief) #5 mL bupropion HCl 150 mg tablet,12 hr 150 mg PO BID #180 tabs 07/03/25 08/23/25 Rx sustained-release lorazepam 0.5 mg tablet (Ativan) 0.5 mg PO DAILY PRN anxiety #14 07/23/25 08/23/25 Rx tabs baclofen 10 mg tablet 10 mg PO Q8H PRN muscle spasm 07/29/25 08/23/25 History bisacodyl 10 mg rectal suppository 10 mg RECTAL DAILY PRN constipation 07/29/25 08/23/25 History cilcitriol capsule See Rx Instructions .Route 07/29/25 08/23/25 History .COMPLEX hypocalcemia magnesium hydroxide 400 mg/5 mL 30 ml PO HS PRN constipation 07/29/25 08/23/25 History oral suspension (Milk of Magnesia) metoprolol tartrate 50 mg tablet 50 mg PO HS 07/29/25 08/23/25 History (Lopressor) naloxone 4 mg/actuation nasal 4 mg intranasal Q2M 08/23/25 08/23/25 History spray (Narcan) Allergies Allergy/AdvReac Type Severity Reaction Status Date / Time clonazepam AdvReac Severe Drowsy Verified 08/22/25 20:21 roflumilast (From Daliresp) AdvReac Severe Diarrhea Verified 08/22/25 20:21 Vital Signs Vital Signs - 24 hr 08/22/25 20:08 08/22/25 21:59 08/22/25 22:58 Temperature 36.4 C Pulse Rate 64 71 82 Respiratory Rate 17 16 16 Blood Pressure 98/41 L 128/50 L Pulse Oximetry 100 100 93 Oxygen Delivery Nasal Cannula Oxygen Flow Rate 4 Fraction of Inspired Oxygen 08/22/25 23:25 08/23/25 00:29 08/23/25 00:51 Temperature Pulse Rate 81 80 80 Respiratory Rate 19 18 17 Blood Pressure 94/75 L 120/48 L 133/57 L Pulse Oximetry 96 97 96 Oxygen Delivery Oxygen Flow Rate Fraction of Inspired Oxygen 08/23/25 02:30 08/23/25 02:30 08/23/25 03:42 Temperature 36.8 C Pulse Rate 80 78 88 Respiratory Rate 17 17 Blood Pressure 146/59 H Pulse Oximetry 96 95 Oxygen Delivery Nasal Cannula Oxygen Flow Rate 4 Fraction of Inspired Oxygen 08/23/25 04:19 08/23/25 04:23 08/23/25 04:29 Temperature Pulse Rate 71 71 70 Respiratory Rate 20 20 20 Blood Pressure Pulse Oximetry 95 Oxygen Delivery Nasal Cannula Oxygen Flow Rate 4 Fraction of Inspired Oxygen 36 08/23/25 06:00 08/23/25 08:00 08/23/25 09:10 Temperature 36.7 C Pulse Rate 72 70 Respiratory Rate 20 Blood Pressure 104/72 Pulse Oximetry 100 97 Oxygen Delivery Nasal Cannula Oxygen Flow Rate 2 Fraction of Inspired Oxygen 08/23/25 09:10 08/23/25 09:24 Temperature Pulse Rate 73 80 Respiratory Rate 20 20 Blood Pressure Pulse Oximetry Oxygen Delivery Oxygen Flow Rate Fraction of Inspired Oxygen Exam Const: General: cooperative, healthy appearing and comfortable Orientation/consciousness: oriented to person, oriented to place and oriented to time HENMT: Head: normal to inspection Ears: hearing grossly normal bilaterally Eyes: General: appearance normal, both eyes and all related structures Neck: Neck: normal visual inspection Chest: Chest palpation & inspection: normal inspection of the chest Resp: Effort & Inspection: normal respiratory effort and able to speak in complete sentences Auscultation: crackles, no rales, no rhonchi, no wheezes and diminished lung sounds Other: Decreased breath sounds with base basilar inspiratory crackles. No wheezing Cardio: Jugular venous distension: no JVD GI: Inspection: normal to inspection GI Palp: No abdominal tenderness Skin: General skin exam: normal color Neuro: General: oriented to person, oriented to place and oriented to time Extrem: General: normal to inspection Psych: Appearance: grossly normal Results Laboratory Findings 08/23/25 11:27 08/23/25 11:27 ABG, PT/INR, D-dimer: PT/INR, D-dimer PT 23.6 Seconds (11.1-14.7) H 08/22/25 20:34 INR 2.2 08/22/25 20:34 Abnormal lab findings: Abnormal Labs 08/22/25 08/22/25 08/22/25 20:34 21:30 22:07 WBC 11.0 H RBC 2.74 L Hgb 7.3 L Hct 24.3 L MCHC 30.0 L RDW 17.0 H MPV 11.7 H Immature Gran % (Auto) 0.7 H Neut % (Auto) 83.2 H Lymph % (Auto) 5.3 L Wayne % (Auto) 10.7 H Baso % (Auto) 0.1 L Lymph # (Auto) 0.58 L [place] # (Auto) 1.2 H Abs Immat Gran (auto) 0.08 H Absolute Neuts (auto) 9.1 H PT 23.6 H APTT 69.9 H VBG pO2 < 27.0 L Sodium 130 L Chloride 97 L BUN 28 H Creatinine 1.39 H Estimated GFR 49 L Total Bilirubin 1.5 H Total Protein 5.8 L Albumin 2.9 L Urine Appearance Cloudy H Urine Protein 1+ H Urine Ketones Trace H Urine Nitrate Positive H Urine Bilirubin 2+ H Leukocyte Esterase Rfl 1+ H Diagnostic Findings Additional studies: ITS Impressions Chest X-Ray 08/22/25 20:48 IMPRESSION: 1. No significant change in a small right pleural effusion or of linear and reticular opacities in the right mid and bilateral lower lung zones which could represent atelectasis/scarring and/or pneumonia. Head CT 08/23/25 07:34 IMPRESSION: 1. Stable moderate nonspecific cerebral white matter disease, which likely represents chronic small vessel ischemic disease. Chest CT 08/23/25 09:14
[2025-08-23 11:37] LABS: Hematocrit 24.4 % (42.0-52.0); Hemoglobin 7.4 g/dL (14.0-18.0); Immature Granulocyte Percent A 0.7 % (0-0.5); Lymphocytes Absolute Auto 0.36 K/mm3 (0.9-3.2); Mean Corpuscular HGB Conc 30.3 g/dl (32-36); Mean Corpuscular Hemoglobin 26.8 pg (26-34); Mean Corpuscular Volume 88.4 fl (80-100); Nucleated Red Blood Cells Absolute Auto 0.000 K/mm3 (0.0-0.012); Nucleated Red Blood Cells Perc 0.0 % (0.0-0.2); Platelet Count Result 176 k/mm3 (150-375); Red Blood Count 2.76 M/mm3 (4.6-6.20); White Blood Count 11.8 K/mm3 (4.5-10.0)
[2025-08-23 11:52] LABS: Alanine Aminotransferase 17 U/L (6-50); Albumin Level 2.9 g/dL (3.5-5.1); Alkaline Phosphatase 115 U/L (38-126); Anion Gap 6 mmol/L (4-12); Aspartate Amino Transferase 37 U/L (17-59); Bilirubin,Total 1.5 mg/dL (0.2-1.3); Blood Urea Nitrogen 26 mg/dL (9-20); Calcium 8.7 mg/dL (8.4-10.2); Carbon Dioxide 28 mmol/L (22-30); Chloride 97 mmol/L (98-107); Estimated CRCL calculation 47 ml/min; Estimated Glomerular Filt Rate > 60; Glucose 108 mg/dL (65-110); Potassium 4.2 mmol/L (3.4-5.0); Sodium 131 mmol/L (137-145); Total Protein 6.0 g/dL (6.3-8.2)
[2025-08-23 12:12] LABS: NT Pro B Type Natriuretic Pept 2630 pg/mL (19.9-100)
[2025-08-23] MEDS: CIPROFLOXACIN 400 MG/D5W 200ML 200 ML 200 MG IVPB (12:13)
[2025-08-23 12:29] LABS: Procalcitonin 0.5 ng/mL
[2025-08-23 13:52] LABS: CRP 28.7 mg/dL (<1.0)
[2025-08-23] MEDS: MEROPENEM 1 GM in SODIUM CHLORIDE 0.9% IV 100 ML 200 ML IVPB (14:01)
[2025-08-23] MEDS: ACETYLCYSTEINE 20% INHAL SOLN 800 MG/4 ML VIAL 200 MG INHALATION ×2 (14:06→20:55)
--- NOTE | 2025-08-23 14:34 | WNDPHOTO ---
PHOTO ONLY - See Nursing Notes and/ or assessments for documentation.
--- NOTE | 2025-08-23 15:22 | ADMGEN ---
This patient, Russell Morse, was admitted to [address] [facility] Surg Room 307-01. Patient/family oriented to hospital policies and general routines including ID bracelet, bed and alarms, visiting hours, pain management, procedures, bathroom and other care routines, personal items, smoking policy, room service/diet, and visiting hours. Information on how to activate the Rapid Response Team has been discussed. Patient/Family are encouraged to report perceived risks to care and to ask questions if they do not understand what they are told or what they should do. received report from macarena.
--- NOTE | 2025-08-23 15:48 | PC.NURSE ---
This patient, Russell Morse, was transferred to [facility] on 08/23/25 at 1505. Personal belongings sent with patient. Report given to Frankie. Appropriate documentation sent with patient.
[2025-08-23 17:16] LABS: Influenza A QL RT-PCR Negative (Negative); Influenza B QL RT-PCR Negative (Negative); RSV RNA, RT-PCR Negative (Negative); SARS-CoV-2 RNA PCR Negative (Negative)
[2025-08-23 17:51] LABS: MRSA (PCR) NOT DETECTED (NOT DETECTE)
[2025-08-23] MEDS: METOPROLOL TARTRATE 50 MG TAB PO (21:03)
[2025-08-24] VITALS (9 sets, daily range): BP systolic 126–137; BP diastolic 61–87; PULSE 64–90; RESP 17–18; TEMP 36.2–37.7; O2SAT 93–97
[2025-08-24] MEDS: MEROPENEM 1 GM in SODIUM CHLORIDE 0.9% IV 100 ML 200 ML IVPB ×3 (01:51→21:25)
[2025-08-24] MEDS: IPRATROPIUM 0.5 MG/ALBUTEROL SULFATE 2.5 MG AMPUL.NEB 3 ML INHALATION ×4 (01:54→21:16)
[2025-08-24] MEDS: ACETYLCYSTEINE 20% INHAL SOLN 800 MG/4 ML VIAL 200 MG INHALATION ×4 (01:54→21:16)
[2025-08-24 05:57] LABS: Hematocrit 23.0 % (42.0-52.0); Hemoglobin 7.2 g/dL (14.0-18.0); Immature Granulocyte Percent A 0.8 % (0-0.5); Lymphocytes Absolute Auto 0.55 K/mm3 (0.9-3.2); Mean Corpuscular HGB Conc 31.3 g/dl (32-36); Mean Corpuscular Hemoglobin 27.2 pg (26-34); Mean Corpuscular Volume 86.8 fl (80-100); Nucleated Red Blood Cells Absolute Auto 0.000 K/mm3 (0.0-0.012); Nucleated Red Blood Cells Perc 0.0 % (0.0-0.2); Platelet Count Result 172 k/mm3 (150-375); Red Blood Count 2.65 M/mm3 (4.6-6.20); White Blood Count 10.2 K/mm3 (4.5-10.0)
[2025-08-24 06:27] LABS: Alanine Aminotransferase 15 U/L (6-50); Albumin Level 2.7 g/dL (3.5-5.1); Alkaline Phosphatase 112 U/L (38-126); Anion Gap 5 mmol/L (4-12); Aspartate Amino Transferase 27 U/L (17-59); Bilirubin,Total 3.0 mg/dL (0.2-1.3); Blood Urea Nitrogen 22 mg/dL (9-20); Calcium 8.5 mg/dL (8.4-10.2); Carbon Dioxide 28 mmol/L (22-30); Chloride 96 mmol/L (98-107); Estimated CRCL calculation 54 ml/min; Estimated Glomerular Filt Rate > 60; Glucose 95 mg/dL (65-110); Potassium 3.9 mmol/L (3.4-5.0); Sodium 129 mmol/L (137-145); Total Protein 5.7 g/dL (6.3-8.2)
[2025-08-24 06:39] LABS: Procalcitonin 0.3 ng/mL
[2025-08-24 06:45] LABS: CRP 24.6 mg/dL (<1.0)
--- NOTE | 2025-08-24 07:14 | P.PNIM_ITS ---
Progress Note: A&P Assessment and Plan (1) Pneumonia: Qualifiers: Laterality: right Lung location: unspecified part of lung Pneumonia type: due to unspecified organism Qualified Code(s): J18.9 - Pneumonia, unspecified organism Code(s): J18.9 - Pneumonia, unspecified organism Status: Acute Assessment and Plan: -multiple admissions for recurrent pneumonia. Has history of SNEHA infection. - admit WBC 11, afebrile - CT Chest with moderate emphysema, diffuse lung disease with a peripheral and lower lung predominance with worsening in posterior segment RUL, chronic small right pleural effusion and bilateral pleural thickening - pulm consulted. Discussed case with Dr. Gottlieb who felt changes mostly chronic or related to mucus plugging, less likely acute bacterial process. - ID consulted. Stopped cipro, started Merrem. Continue SNEHA treatment with daily azithromycin, ethambutol, rifampin. -sputum and blood cultures pending. - pulm ordered lasix x1 today as patient is positive 1.5L (2) AMS (altered mental status): Code(s): R41.82 - Altered mental status, unspecified Status: Acute Assessment and Plan: - presented alert and oriented x1 - CT head with no acute process - suspect infectious in setting of UTI and possible pneumonia - continue treatment of bacterial processes - monitor mental status - now back to baseline (3) Urinary tract infection: Code(s): N39.0 - Urinary tract infection, site not specified Status: Acute Assessment and Plan: - UA with positive nitrates, 1+ LE - symptomatic with dysuria - continue Merrem. Await urine culture. (4) COPD (chronic obstructive pulmonary disease): Code(s): J44.9 - Chronic obstructive pulmonary disease, unspecified Status: Acute Assessment and Plan: - not in acute exacerbation -continue Mucinex and Duonebs (5) Chronic hypoxic respiratory failure, on home oxygen therapy: Code(s): J96.11 - Chronic respiratory failure with hypoxia; Z99.81 - Dependence on suppl emental oxygen Status: Acute Assessment and Plan: -patient is chronically on oxygen at 4 L per nasal cannula. - currently weaned to 1L NC (6) Depression: Code(s): F32.A - Depression, unspecified Status: Acute Assessment and Plan: -continue with bupropion -trazodone has been on hold. 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: Qualifiers: Heart failure chronicity: acute on chronic Qualified Code(s): I50.43 - Acute on chronic combined systolic (congestive) and diastolic (congestive) heart failure Code(s): I50.40 - Unspecified combined systolic (congestive) and diastolic (congestive) heart failure Status: Acute Assessment and Plan: - echo 2023 with EF 49%, G1 DD - given IV Lasix x1 in ED - pulm ordered IV lasix x1 this AM (10) Hyponatremia: Code(s): E87.1 - Hypo-osmolality and hyponatremia Status: Acute Assessment and Plan: - chornically low -Na 131, near baseline (11) SANDI (acute kidney injury): Code(s): N17.9 - Acute kidney failure, unspecified Status: Acute Assessment and Plan: -Cr 1.39 on admit. Received IV lasix and fluids in ED. Cr improved this AM. -hold home sulindac (12) SNEHA (mycobacterium avium-intracellulare): Code(s): A31.0 - Pulmonary mycobacterial infection Status: Acute Assessment and Plan: -continue azithromycin, ethambutol and rifampin Plan DVT prophylaxis: Lovenox Code status: DNR Dispo: back to [facility] once medically stable, likely 2-3 days Subjective Date/time seen: 08/24/25 07:14 Interval history: Patient seen and examined at bedside. Oriented this AM. Having some increased dyspnea which improved with coughing this AM. Discussed plan of care with Dr. Gottlieb. Review of Systems Review of Systems: All systems reviewed & are unremarkable except as noted in HPI and below Exam Narrative: General: NAD. Appears chronically debilitated. Eyes: EOMI ENT: neck supple Cardiovascular: Regular rate and rhythm Respiratory: scattered rhonchi bilaterally, respirations even and unlabored on 1L NC Gastrointestinal: Soft, non tender Genitourinary: no suprapubic tenderness Musculoskeletal: No edema Skin: warm, dry Neuro: Alert and oriented x4 Psych: Mood appropriate Objective Data Vital Signs Vital Signs: Vital Signs - 24 hr 08/23/25 08:00 08/23/25 08:00 08/23/25 08:00 Temperature 98.1 F Pulse Rate 70 78 Respiratory Rate 20 Blood Pressure 104/72 Pulse Oximetry 100 99 Oxygen Delivery Nasal Cannula Oxygen Flow Rate 2 08/23/25 09:10 08/23/25 09:10 08/23/25 09:24 Temperature Pulse Rate 73 80 Respiratory Rate 20 20 Blood Pressure Pulse Oximetry 97 Oxygen Delivery Nasal Cannula Oxygen Flow Rate 2 08/23/25 10:00 08/23/25 11:51 08/23/25 12:00 Temperature 98.5 F Pulse Rate 74 79 85 Respiratory Rate 21 H Blood Pressure 125/48 L Pulse Oximetry 99 Oxygen Delivery Oxygen Flow Rate 08/23/25 14:11 08/23/25 14:25 08/23/25 15:24 Temperature Pulse Rate 79 79 Respiratory Rate 20 20 Blood Pressure Pulse Oximetry 97 Oxygen Delivery Nasal Cannula Oxygen Flow Rate 3 08/23/25 16:23 08/23/25 20:00 08/23/25 20:55 Temperature 99.5 F Pulse Rate 105 H 74 Respiratory Rate 20 20 Blood Pressure 114/69 Pulse Oximetry 97 94 Oxygen Delivery Nasal Cannula Oxygen Flow Rate 2 08/23/25 21:03 08/23/25 21:21 08/24/25 00:00 Temperature 97.2 F L Pulse Rate 84 74 70 Respiratory Rate 18 Blood Pressure 130/66 Pulse Oximetry 94 97 Oxygen Delivery Nasal Cannula Oxygen Flow Rate 2 08/24/25 04:00 Temperature 97.2 F L Pulse Rate 77 Respiratory Rate 18 Blood Pressure 126/87 Pulse Oximetry 97 Oxygen Delivery Oxygen Flow Rate Intake/Output Intake/Output: Intake & Output 08/21/25 08/22/25 08/23/25 08/24/25 23:59 23:59 23:59 23:59 Intake Total 1000 820 740 Output Total 30 700 250 Balance 970 120 490 Meds/Results Medications: Active Medications Generic Name Dose Route Start Last Admin Trade Name Freq PRN Reason Stop Dose Admin Acetaminophen 650 mg 08/22/25 23:22 Acetaminophen 325 Mg Tablet PO Q4H PRN Mild Pain (1-3) or Fever Acetylcysteine 200 mg 08/23/25 14:00 08/24/25 01:54 Acetylcysteine 20% Inhal Soln 800 Mg/4 Ml Vial INHALATION 200 mg Q6HRT GIOVANNY Administration Albuterol/Ipratropium 3 ml 08/23/25 08:00 08/24/25 01:54 Ipratropium 0.5 Mg/Albuterol Sulfate 2.5 Mg Ampul.Neb 3 Ml INHALATION 3 ml Q6HRT GIOVANNY Administration Aspirin 81 mg 08/23/25 09:00 08/23/25 09:29 Aspirin 81 Mg Enteric Tablet PO 81 mg DAILY GIOVANNY Administration Azithromycin 250 mg 08/24/25 09:00 Azithromycin 250 Mg Tablet PO DAILY GIOVANNY Bisacodyl 10 mg 08/23/25 04:05 Bisacodyl 10 Mg Suppository RECTAL DAILY PRN Constipation Bupropion HCl 150 mg 08/23/25 09:00 08/23/25 21:03 Bupropion Hcl Sr (12 Hr) 150 Mg Tab PO 150 mg Q12HR GIOVANNY Administration Enoxaparin Sodium 40 mg 08/24/25 09:00 Enoxaparin 40 Mg/0.4 Ml Syringe SUB-Q DAILY GIOVANNY Ethambutol HCl 1,200 mg 08/23/25 09:00 08/23/25 09:28 Ethambutol Hcl 400 Mg Tablet PO 1,200 mg DAILY GIOVANNY Administration Fenofibrate 145 mg 08/23/25 09:00 08/23/25 09:27 Fenofibrate 145 Mg Tablet PO 145 mg QAM GIOVANNY Administration Guaifenesin 1,200 mg 08/23/25 09:00 08/23/25 21:03 Guaifenesin 12 Hr 600 Mg Tabcr PO 1,200 mg Q12HR GIOVANNY Administration Meropenem 1 gm/ Sodium 100 mls @ 200 mls/hr 08/23/25 14:00 08/24/25 01:51 Chloride IVPB 200 mls/hr Q12H GIOVANNY Administration Metoprolol Tartrate 50 mg 08/23/25 21:00 08/23/25 21:03 Metoprolol Tartrate 50 Mg Tab PO 50 mg HS GIOVANNY Administration Ondansetron HCl 4 mg 08/22/25 23:22 Ondansetron Inj 4 Mg/2 Ml Vial IV PUSH Q4H PRN Nausea Pantoprazole Sodium 40 mg 08/23/25 09:00 08/23/25 09:27 Pantoprazole 40 Mg Tablet PO 40 mg QAM GIOVANNY Administration Perflutren Lipid Microsphere 0 ml 08/23/25 04:03 Perflutren Lipid Microspheres 1.5 Ml Vial Diluted To 10 Ml Total Volume IV PUSH 08/26/25 04:03 ONCE PRN adequate visualization Protocol Rifampin 300 mg 08/23/25 14:00 08/23/25 22:35 Rifampin 300 Mg Capsule PO 300 mg Q12HR GIOVANNY Administration Sertraline HCl 50 mg 08/23/25 09:00 08/23/25 09:27 Sertraline Hcl 50 Mg Tablet PO 50 mg DAILY GIOVANNY Administration Tamsulosin HCl 0.4 mg 08/23/25 09:00 08/23/25 16:45 Tamsulosin Hcl 0.4 Mg Capsule PO 0.4 mg BID GIOVANNY Administration Radiology Results: ITS Impressions Chest X-Ray 08/22/25 20:48 IMPRESSION: 1. No significant change in a small right pleural effusion or of linear and reticular opacities in the right mid and bilateral lower lung zones which could represent atelectasis/scarring and/or pneumonia. Head CT 08/23/25 07:34 IMPRESSION: 1. Stable moderate nonspecific cerebral white matter disease, which likely represents chronic small vessel ischemic disease. Chest CT 08/23/25 09:14 IMPRESSION: 1. Moderate emphysema. 2. Diffuse lung disease with a peripheral and lower lung predominance with worsening in posterior segment right upper lobe, likely a combination of rounded atelectasis and pneumonia. 3. Chronic small right pleural effusion. Chronic bilateral pleural thickening. 4. Small sliding hiatal hernia. Labs Labs: Laboratory Results - last 24 hr 08/23/25 08/23/25 08/24/25 11:27 16:24 05:43 WBC 11.8 H 10.2 H RBC 2.76 L 2.65 L Hgb 7.4 L 7.2 L Hct 24.4 L 23.0 L MCV 88.4 86.8 MCH 26.8 27.2 MCHC 30.3 L 31.3 L RDW 16.7 H 16.8 H Plt Count 176 172 MPV 11.6 H 11.8 H Immature Gran % (Auto) 0.7 H 0.8 H Neut % (Auto) 86.8 H 82.9 H Lymph % (Auto) 3.1 L 5.4 L [place] % (Auto) 9.2 H 10.6 H Eos % (Auto) 0.0 0.1 Baso % (Auto) 0.2 0.2 Lymph # (Auto) 0.36 L 0.55 L [place] # (Auto) 1.1 H 1.1 H Eos # (Auto) 0.0 0.0 Baso # (Auto) 0.0 0.0 Abs Immat Gran (auto) 0.08 H 0.08 H Absolute Neuts (auto) 10.2 H 8.4 H Absolute Nucleated RBC 0.000 0.000 Nucleated RBC % 0.0 0.0 Sodium 131 L 129 L Potassium 4.2 3.9 Chloride 97 L 96 L Carbon Dioxide 28 28 Anion Gap 6 5 BUN 26 H 22 H Creatinine 1.07 0.91 Estim Creat Clear Calc 47 54 Estimated GFR > 60 > 60 Glucose 108 95 Calcium 8.7 8.5 Total Bilirubin 1.5 H 3.0 H AST 37 27 ALT 17 15 Alkaline Phosphatase 115 112 C-Reactive Protein 28.7 H 24.6 H NT-Pro-B Natriuret Pep 2630 H Total Protein 6.0 L 5.7 L Albumin 2.9 L 2.7 L Procalcitonin 0.5 0.3 Nasal MRSA (PCR) Not detected Influenza A (RT-PCR) Negative Influenza B (RT-PCR) Negative RSV (RT-PCR) Negative SARS-CoV-2 RNA (RT-PCR) Negative Quality VTE Prophylaxis VTE prophylaxis: mechanical ordered and pharmacologic ordered
--- NOTE | 2025-08-24 08:10 | P.CDI_ITS ---
CDI Query Clarification Request BMI: 21.6 Nutritional Diagnostic Statement: Please refer to the comprehensive nutrition assessment for further information. If you agree with diagnosis of Severe protein calorie malnutrition related to chronic loss of appetite, increased needs from pressure injury as evidenced by intakes<75% needs >1 month; weight loss 6%/1 month; severe muscle wasting and fat loss; deep tissue pressure injury. Please specify severity if known: * Mild * Moderate * Severe * Other/Unknown <Sadie Gilmore RN - Last Filed: 08/24/25 08:11> Clarified Diagnosis Clarified Diagnosis: Severe protein calorie malnutrition <BRITTANY Ellis - Last Filed: 08/24/25 08:36>
[2025-08-24] MEDS: ETHAMBUTOL HCL 400 MG TABLET 1200 MG PO (08:22)
[2025-08-24] MEDS: guaiFENesin 12 HR 600 MG TABCR 1200 MG PO ×2 (08:22→20:16)
[2025-08-24] MEDS: SERTRALINE HCL 50 MG TABLET PO (08:22)
[2025-08-24] MEDS: ASPIRIN 81 MG ENTERIC TABLET PO (08:22)
[2025-08-24] MEDS: buPROPion HCL SR (12 HR) 150 MG TAB PO ×2 (08:22→20:16)
[2025-08-24] MEDS: PANTOPRAZOLE 40 MG TABLET PO (08:22)
[2025-08-24] MEDS: FENOFIBRATE 145 MG TABLET PO (08:22)
[2025-08-24] MEDS: TAMSULOSIN HCL 0.4 MG CAPSULE PO ×2 (08:22→17:19)
[2025-08-24] MEDS: AZITHROMYCIN 250 MG TABLET PO (08:22)
--- NOTE | 2025-08-24 08:40 | PM.PNPUL ---
Progress Note: A&P Assessment and Plan (1) COPD (chronic obstructive pulmonary disease): Code(s): J44.9 - Chronic obstructive pulmonary disease, unspecified Status: Acute Assessment and Plan: Gold grade 2 group E COPD Regarding his COPD, patient with 60 pack year tobacco use quit in 2019, alpha 1 anti trypsin genotype MM, [id number] apical predominant centrilobular and paraseptal emphysema on his CT scan from 10/11/2021. Of note he has had COVID pneumonia on 09/10/2021 and Pseudomonas aeruginosa on 10/10/2021 and 04/26/2025 and 06/16/2025. His PFTs from 12/16/2023 show mild obstruction with FEV1 68%, ratio 61%. No bronchodilator response, hyperinflation, severely decreased DLCO the remains mildly decreased when adjusted for alveolar volume. Compared to 01/01/2022 had been a significant decrease in the FVC, FEV1, total lung capacity, functional residual capacity and diffusing capacity. When admitted for pneumonia had an ABG on 02/25/2024 on 3 L nasal cannula 7.44/36/67. 10/04/2024: ABG on 2 L 7.43/41/75. 06/29/2025: 2 L ABG 7.37/49/113. 10/04/2024: White blood cell count 11.1 eosinophils 3.2%=355/uL. 04/09/2024 white blood cell count 11.1, eosinophils 0.4%=44/uL. 06/28/2025 white blood cell count 14.8, 1.8%=266 uL. 08/22/2025: White blood cell count 11.0, eosinophils 0% equals 0 per micro L. 08/23/25: Patient tells me he has 2 days worsening cough and breathing but denied fever, chills, change in his phlegm volume or production and no hemoptysis. He has no wheezing on exam. He is debilitated, he has a poor ineffective cough and can not clear his secretions. We has chronic hypoxemic respiratory failure on 4 L nasal cannula at rest and with activity and currently is on 2 L nasal cannula. Patient had CT scan of the chest compared to 07/29/2025 with no change in his emphysema, small right and trace left pleural effusion, worse infiltrate posterior segment of the right upper lobe, superior segment of the left lower lobe, dependent areas of the right lower lobe and no change in the dependent infiltrates in his left lower lobe. Plan: I do not feel this is a COPD exacerbation. He has no wheezing on exam. I do not recommend systemic or inhaled steroids. In the past the patient has required DuoNebs q.6, Mucomyst nebulizers q.6, guaifenesin 1200, vest b.i.d., and Cornet flutter valve Q 4 to help him expectorate and I will initiate these treatments. The patient is at very high risk for mucus plugging which can result in acute hypoxemia. Apparently was hypoxemic at the [facility] but in the emergency department he was on his baseline 4 L with saturations 100%. He may have had a mucus plug at the [facility]. Regarding his new infiltrates on his CT scan. This is recurring pattern for this patient. Possible etiology of these recurrent infiltrates include atelectasis, mucus plugging, or infection. I will treat him aggressively for atelectasis and mucus plugging as above. He has no other symptoms of pulmonary bacterial infection, His oxygen requirements are actually improved from his baseline. procalcitonin 0.5. I am not convinced the patient has a new bacterial infection in his lungs. He was empirically started on ciprofloxacin and he tells me he is back at his baseline after 1 dose. Consider discontinuation of ciprofloxacin. I have sent a respiratory pathogen panel, urine for Legionella, urine for pneumococcal, serum mycoplasma IgM, COVID, influenza, RSV RT PCR. He was given 1 dose of IV Lasix and has responded to IV Lasix in the past. agree with gentle diuresis as tolerated by his cardiac and renal systems. 08/24/25: Patient said he had worse shortness of breath. Worse cough with less phlegm. The phlegm he was producing this screen. I asked him to expectorate and he expectorated 4 times with difficulty. After this expectoration his said his breathing was better. When I enter the room he was on 2 L nasal cannula saturations 95%. I decreased him to 1 L and his saturation was 93%. He is afebrile. White blood cell count 10.2, creatinine 0.91 procalcitonin is decreased from 0.5 on 08/23/2025 to 0.3 today. His CRP is decreased from 20/8 0.7 on 08/23/2025 to 24.6. He is cumulative positive 1.5 L since admission. His weight today is 70.2. Plan: I do not believe he is having a COPD exacerbation. His shortness of breath this morning was partially alleviated by expectoration of phlegm. Continue DuoNebs q.6 hours, Mucomyst q.6 hours, guaifenesin 1200, vest therapy b.i.d. and Cornet flutter valve for phlegm expectoration. I have decreased his oxygen to 1 L nasal cannula. Infectious disease consult has placed the patient on meropenem, day 2. He was given 1 dose of IV Lasix on 08/23 and has responded to IV Lasix in the past. BNP 2630 He is positive 1.5 L since admission. agree with gentle diuresis as tolerated by his cardiac and renal systems. I have ordered 20 of Lasix IV today. Discussed with Patricia Jeffers, will follow with you. (2) Chronic hypoxic respiratory failure, on home oxygen therapy: Code(s): J96.11 - Chronic respiratory failure with hypoxia; Z99.81 - Dependence on supplemental oxygen Status: Acute Assessment and Plan: on 07/01/2025 when I saw him in the hospital he was on 1 L at rest, 4 L with activity and 2 L at night. Since then he tells me he has been wearing 4 L 24-7. 08/23/2025: Patient's baseline is 4 L nasal cannula and currently his on 2 L nasal cannula with saturations 97%. Plan: Goal saturation 90-94%. Adjust oxygen accordingly. 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 patient started on rifabutin 300 q.day, azithromycin 500 mg q.day, ethambutol 1200 mg q.day on 06/05/2025. Patient with a history of SNEHA in sputum, multiple pulmonary infections requiring antibiotics on 02/25/2024, 04/10/2024, 09/08/2024, 10/04/2024, 11/04/2024, 11/20/2024, 12/02/2024, 03/02/2025, 04/25/2025, 05/12/2025, 05/22/2025, 06/15/2025, 06/28/2025, 07/18/2025, and 07/29/2025. Other comorbidities include COPD and history of fluid overload. Patient had CT scan of the chest compared to 07/29/2025 with no change in his emphysema, small right and trace left pleural effusion, worse infiltrate posterior segment of the right upper lobe, superior segment of the left lower lobe, dependent areas of the right lower lobe and no change in the dependent infiltrates in his left lower lobe. 08/23/25: Patient reportedly sent to the hospital with decrease oxygen saturation but currently he is on 2 L nasal cannula now with a baseline of 4 L nasal cannula. He says that he is breathing normally after treatment with bronchodilators, IV fluids, 1 dose of Cipro. He is afebrile and has no respiratory complaints. His procalcitonin is 0.5. Plan: Infectious disease consult placed. Await recommendations regarding ethambutol 1200 mg p.o. q.day, azithromycin 250 mg p.o. q.day, and rifabuton 300 mg p.o. q.day. 08/24/2025: Infectious disease team has restarted his SNEHA medicines. Plan: Ethambutol 1200 mg p.o. q.day, azithromycin 250 p.o. q.day, rifampin 300 mg q.12 hours. Subjective Date/time seen: 08/24/25 08:40 Interval history: 08/23/2025: This is a new pulmonary consult for COPD with pulmonary MAC 80-year-old with a history of coronary artery disease status post non ST elevation [place] 08/2019, ischemic cardiomyopathy, hypertension, hyperlipidemia, Gold grade 2 group B COPD on home oxygen 4 L at rest, with activity and with sleep and MAC lung disease (started on ribabutin, azithromycin and ethambutol on 06/05/2025) patient is followed in the [facility]. He has required antibiotics for lung infections on: 02/25/2024, 04/10/2024, 09/08/2024, 10/04/2024, 11/04/2024, 11/20/2024, 12/02/2024, 03/02/2025, 04/25/2025, 05/12/2025, 05/22/2025, 05/30/2025, 06/15/2025, 06/28/2025, 07/18/2025, and 07/29/2025. Patient recently admitted to the hospital from 06/15/2025 to 06/23/2025 for shortness of breath and hypoxia. he was treated with Levaquin, pulmonary hygiene maneuvers and his azithromycin was decreased from 500 mg p.o. q.day to 250 mg p.o. q.day due to hearing decrease. Patient left the hospital on 06/23/2024 in no respiratory distress but he was weak and fatigued easily. Patient recently admitted to the hospital from 06/28/2025 through 07/02/2025 for weakness, shortness of breath and hypoxia. he was 9 compliant with his SNEHA medicines which were restarted. He was deconditioned and could walk 80 ft. He was treated with DuoNebs q.6, Mucomyst nebulizers q.6, guaifenesin 1200, vest b.i.d., Cornet flutter valve Q 4 because he was debilitated and could not expectorate. Discharged to SNF facility Patient recently admitted to the hospital 07/18/2025 through 07/23/[address] head negative. Thought to be related from his transition from [facility] to back home. Discharged to [facility]. Patient recently admitted to the hospital 07/29/2025 through 08/05/2025 for possible community-acquired pneumonia, Mild SANDI. Treated with ciprofloxacin. 08/23/2023: Patient presented from [facility] with altered mental status and decrease oxygen saturation. Apparently he was lethargic, not getting out of bed and his mental status had decreased to a and O x1. He was given Narcan with no improvement. Blood pressure was 98/41, heart rate 66 4, respirations 17, afebrile, 4 L nasal cannula saturation 100%. He had coarse breath sounds bilaterally with no wheezing. White blood cell count 11.0, creatinine 1.39, serum bicarb 28. Venous blood gas on 4 L nasal cannula 7.37/45/ less than 27. Lactic acid 1.5. Patient was given 1 L IV fluid with improvement in blood pressure. Patient was started on ciprofloxacin. Patient had CT scan of the chest compared to 07/29/2025 with no change in his emphysema, small right and trace left pleural effusion, worse infiltrate posterior segment of the right upper lobe, superior segment of the left lower lobe, dependent areas of the right lower lobe and no change in the dependent infiltrates in his left lower lobe. Currently the patient tells me his name. States he is in [facility]. States the date is 08/28/2025. 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 Correctly names the pen, pen cap and clip of the [place] cap. He is nonfocal if the with his upper extremities and lower extremities. When I talked to the patient this morning he said that on 08/21/2025 he was normal during the day but later that night he developed shortness of breath, worse cough with minimal phlegm production and no blood. He denied fever. He slept that night but on 08/22/2025 he had worsening breathing, more phlegm production and cough. he complains that he can not expectorate his phlegm. Symptoms progressed and he presented to the emergency room. He is breathing normal, his cough is gone he has no phlegm and no blood. He is afebrile. When I enter the room his saturations on 4 L were 98%. I decreased him to 2 L and his saturations were 97%. when I asked the patient to cough as before he is debilitated, weak and has an ineffective cough and cannot clear his secretions. He is afebrile. White blood cell count 11.8, creatinine 1.07, BUN 26, BNP is 2630, CRP is pending, procalcitonin is pending. 08/24/25: Patient said he had worse shortness of breath. Worse cough with less phlegm. The phlegm he was producing this screen. I asked him to expectorate and he expectorated 4 times with difficulty. After this expectoration his said his breathing was better. When I enter the room he was on 2 L nasal cannula saturations 95%. I decreased him to 1 L and his saturation was 93%. He is afebrile. White blood cell count 10.2, creatinine 0.91 procalcitonin is decreased from 0.5 on 08/23/2025 to 0.3 today. His CRP is decreased from 20/8 0.7 on 08/23/2025 to 24.6. He is cumulative positive 1.5 L since admission. His weight today is 70.2. DATA (infectious disease): 06/23/25:. His sputum shows moderate growth of Pseudomonas aeruginosa (recurrent) and Lucia. Pseudomonas sensitive to amikacin, aztreonam, ceftazidime, cefepime, gentamicin, meropenem, Zosyn and tobramycin. Intermediate to ciprofloxacin and imipenem. Resistant to Levaquin. 12/15/2024 sputum with AFB verified on 01/14/25 and grew SNEHA on 03/03/25. Sensitivities 03/20/25. On 03/20/25 patient referred to [facility] with appointment scheduled for 05/02/2025. Sputum on 12/16/2024 with AFB verified on 01/20/25 and grew SNEHA on 02/01/25.?Sensitivities 03/28/25. 2024 admissions: * 05/30/2025 Rob admission shortness of breath; transferred to [facility] 06/04 to 06/07; discharged on Levaquin to continue until June 18; continue SNEHA meds * 05/12/2025, ER visit, shortness of breath, home. * 04/25/25 -04/28/25; admitted [place] respiratory distress, hypoxemia, transferred to [facility]; ID saw him 05/02/25; SNEHA; started Rx w azithromycin 500 mg/D, Rifabutin 300 mg/D, ethambutol 1200 mg/ day initial sputum with SNEHA was 12/16/2024 with AFB verified on 01/20/25 and grew SNEHA on 02/01/25.?Sensitivities 03/28/25. QuantiFERON gold was negative on 01/24/25. ORGANISM: MYCOBACTERIUM AVIUM COMPLEX AMIKACIN: 16 S mcg/mL AMIKACIN (LIPOSOMAL, INHALED): 16 S mcg/mL CIPROFLOXACIN: >8 mcg/mL CLARITHROMYCIN: 2 S mcg/mL CLOFAZIMINE: 0.25 mcg/mL DOXYCYCLINE: >8 mcg/mL LINEZOLID: 16 I mcg/mL MINOCYCLINE: >8 mcg/mL MOXIFLOXACIN: 4 R mcg/mL RIFABUTIN: 1 mcg/mL RIFAMPIN: >4 mcg/mL STREPTOMYCIN: >32 * This is a corrected result. * A prior result that was reported as final has been changed. 1. Mycobacterium avium complex M.I.C. RX --------- --- Rifampin AFB >4 S Streptomycin AFB R Amikacin AFB 16 S Moxifloxacin AFB R DATA (imaging and PFT): 08/22/25: EXAMINATION:CT diagnostic chest w con DATE: 08/22/2025 22:25 INDICATION: Hypoxia. TECHNIQUE: Computed tomography (CT) of the chest was performed with 75 mL Omnipaque 350 intravenous contrast. Automated exposure control and iterative reconstruction technique were employed. The dose-length product (DLP) was 229.16 mGy-cm. COMPARISON: Chest CT 07/29/2025 FINDINGS: There is moderate emphysema. There are small right and trace left pleural effusions with pleural thickening. There is chronic peripheral septal thickening in the lungs. There are peripheral airspace opacities in all lobes with a lower lung predominance with worsening in posterior segment right upper lobe. There are tree-in-bud opacities in left upper lobe posteriorly. There are nodules in the thyroid measuring up to 5 mm, likely not clinically significant. The heart size is normal. There are coronary artery calcifications. No pericardial effusion. There is mild mediastinal lymphadenopathy, likely reactive. Calcified mediastinal lymph nodes are consistent with old granulomatous disease. Calcifications in the spleen are consistent with old granulomatous disease. There are cysts in the liver measuring up to 12 mm. There are bridging endplate osteophytes at multiple levels in the spine, consistent with diffuse idiopathic skeletal hyperostosis (DISH). There is moderate thoracic spondylosis. IMPRESSION: 1. Moderate emphysema. 2. Diffuse lung disease with a peripheral and lower lung predominance with worsening in posterior segment right upper lobe, likely a combination of rounded atelectasis and pneumonia. 3. Chronic small right pleural effusion. Chronic bilateral pleural thickening. 4. Small sliding hiatal hernia. 06/29/2025: Clinical Indication: Hypoxia CT Scan of the Chest with Contrast: Technique: Contiguous sections were acquired throughout the chest after intravenous administration of 100 cc of Omnipaque 350. Dose reduction technique was used on this scan by utilizing automated exposure control and iterative reconstruction technique. The dose-length product (DLP) was 283.61 mGy-cm. COMPARISON: 06/01/2025 Findings: Multiple shotty/minimally enlarged mediastinal lymph nodes are present along the right paratracheal stripe and AP window region. There is no filling defect in the pulmonary arterial tree to suggest pulmonary embolus. There is no evidence of aortic dissection or aneurysm. No pericardial effusion. There are small bilateral pleural effusions. Bibasilar consolidation with air bronchograms is present, which could reflect atelectasis/pulmonary edema versus pneumonia. There is probable chronic scarring or interstitial change in the right middle lobe. There are patchy areas of consolidation the left upper lobe and right upper lobe, which could reflect additional or new versus pneumonia. There is mild to moderate emphysema.. Images through the upper abdomen reveal no abnormalities. Impression: No evidence of pulmonary embolus, aortic dissection, or aortic aneurysm. Patchy bilateral consolidation, suggestive of pneumonia and possible superimposed bibasilar atelectasis. There is significant worsening in the left upper lobe as compared to prior exam. Otherwise, remaining areas of airspace disease are similar to prior exam in the remainder of the lungs. Pulmonary edema not completely excluded, though felt to be somewhat less likely given the appearance and distribution of findings. Possible chronic scarring or atelectasis in the right middle lobe. Minimal pleural effusions. 05/12/25: EXAMINATION: CTA chest PE protocol DATE: 05/12/2025 14:25 INDICATION: Dyspnea. Elevated d-dimer. TECHNIQUE: Computed tomography (CT) pulmonary angiogram of the chest was performed with 100 mL Omnipaque-350 intravenous contrast. Additional 3D reconstructions utilizing coronal maximum intensity projection (MIP) were performed. Automated exposure control and iterative reconstruction technique were employed. The dose-length product was 310.42 mGy-cm. COMPARISON: 04/26/2025 FINDINGS: No pulmonary embolism. Mild emphysema. Bronchial wall thickening in the bilateral lower lobes with some frothy appearing mucous in the right bronchus intermedius and right lower lobar bronchi consistent with bronchitis. Unchanged small right pleural effusion is been some interval improvement in groundglass opacities and patchy consolidation in the right lower lobe consistent with improving pneumonia. There is unchanged region of peripheral round atelectasis in the posterior left lower lobe with associated architectural distortion and volume loss. Additional unchanged linear discoid atelectasis at the right middle lobe. Heart size is normal. Atherosclerotic coronary artery calcific location. No pericardial effusion. Thoracic aorta is normal in caliber with no dissection. Enlargement of the central pulmonary arteries consistent with pulmonary arterial hypertension. No pathologically enlarged thoracic lymphadenopathy. Moderate-sized sliding-type hiatal hernia. Multiple low-attenuation cysts scattered throughout the liver measuring up to 1.5 cm. There is also a 1.8 cm cyst at the upper pole the right kidney. Mild thoracic spondylosis with bridging osteophytes at multiple levels consistent with diffuse idiopathic skeletal hyperostosis (DISH). IMPRESSION: 1. No pulmonary embolism. 2. Decreasing consolidation in the right lower lobe consistent with improving pneumonia. 3. Unchanged small right pleural effusion. 4. Mild emphysema and enlargement of the central pulmonary arteries consistent with pulmonary arterial hypertension. 5. Moderate-sized sliding-type hiatal hernia. 04/26/2025: EXAMINATION: CTA chest PE protocol DATE: 04/26/2025 13:46 CDT INDICATION: Shortness of breath TECHNIQUE: Computed tomographic angiography (CTA) of the chest was performed with 100 mL Omnipaque-350 intravenous contrast. The dose-length product was 256.22 mGy-cm. Maximum intensity projection 3D-reconstructions of the aorta and other arteries were constructed by the technologist on a separate workstation. Automated exposure control and iterative reconstruction technique were employed. COMPARISON: Chest x-ray dated 04/25/[address] dated 11/20/2024. FINDINGS: Small right pleural effusion. Trace left pleural effusion. There is mediastinal lymphadenopathy. There is right hilar lymphadenopathy. There is atherosclerosis of the aorta and coronary arteries. Small hiatal hernia. Heart size normal. Pulmonary arteries are enlarged, consistent with pulmonary hypertension. Study is technically adequate without evidence for pulmonary embolism. There is patchy bilateral airspace disease of the right upper, right middle and bilateral lower lobes, consistent with multifocal pneumonia. No endobronchial lesions. There is emphysema. No suspicious pulmonary nodules or masses. Mild thoracic spondylosis. No focal lytic or blastic lesions. IMPRESSION: 1. Multifocal airspace disease, consistent with pneumonia. 2: Bilateral pleural effusions, right greater than left. 3: Mediastinal lymphadenopathy, likely reactive. 4.: Pulmonary artery enlargement, consistent with pulmonary hypertension. 5: Emphysema. My read: I have compared this to CT scans from 11/20/2024 and 08/29/2024 and 02/25/2024. Current CT shows no PE, , Small right pleural effusion, worsening consolidation and infiltrates in the right lower lobe compared to 11/20/2024 and 02/25/2024. Compared to CT scan on 02/25/2024 currently there are some areas of improved consolidation in the right lower lobe and some different areas with worsening consolidations in the right lower lobe. There is unchanged consolidation in the posterior left lower lobe with no change compared to 11/20/2024, 08/29/2024 and that have improved from 02/25/2024. Currently there are patchy consolidations in the right middle lobe some which were present on 11/20/2024 and some that are new. There were no infiltrates on 08/29/2024 in the right middle lobe. 01/02/25: Modified barium swallow: Impression: Moderate dysphagia 11/20/24: EXAMINATION:. Recommendations: Regular but easy to chew diet with regular liquids but patient must use chin tuck posture with all eating and drinking to prevent pharyngeal residual and instances of laryngeal penetration and aspiration. He was referral to outpatient speech therapy. 12/14/24: CRP 3.6, ESR 134, CPK 43, Aspergillus Niger IgE 0.31, very low level. Aspergillus Niger antibody negative, Aspergillus flatus antibody negative. Aspergillus fumigatus antibody negative. Rheumatoid factor 12.9, anti CCP antibody less than 16. TERRA screen positive with an anti-DNA antibody 27 (positive greater than 10), Anca screen negative, hypersensitivity pneumonitis panel negative. 01/24/2025: QuantiFERON gold negative. IgE 691 normal less than 114, rheumatoid factor 12.9. IgG 693, IgM 90, IgA 212, all normal. Aldolase 5.0 11/20/2024: CTA chest PE protocol INDICATION: Hypoxia elevated d-dimer COMPARISON: 08/29/2024 and 10/11/2021. FINDINGS: No filling defects within the main or proximal pulmonary arteries. The thoracic aorta is unremarkable. No aneurysmal dilatation or dissection. The heart is of normal size, without pericardial effusion. Panlobular emphysematous disease is identified. Patchy groundglass opacification detected bilaterally. Small bilateral pleural effusions with adjacent compressive atelectasis Multiple subcentimeter areas of decreased attenuation within the liver, unchanged dating back to 10/11/2021. IMPRESSION: No pulmonary embolus. No aneurysmal dilatation or dissection within the thoracic aorta. Small bilateral pleural effusions with adjacent compressive atelectasis. 08/16/2024: Overnight oximetry on 3 L nasal cannula. The report in the computer status overnight oximetry on room air but this is mislabeled as the test was performed on 3 L. Recording duration 8 hours and 39 minutes. Basal saturation 92.1%. High saturation 96%. Low saturation 79%. Time with saturation less than or equal to 88% was 4 minutes and 58 seconds. I will continue oxygen 3 L at night. 06/24/2024: This is a 6 minute walk test. The test was performed and interpreted in accordance with the 2014 ERS/ATS task force guidelines. Of note, patient used to wheeled walker for stability and the testing was performed on his home portable oxygen concentrator at 3 L with pulse dose. Findings: The patient's resting 3 L oxygen saturation measured by pulse oximetry was 95% and heart rate was 80 bpm. Patient ambulated for 137 meters and oxygen saturation remained 91 to 92%. Heart rate at the end of the study was 94 bpm. The patient did not have rest or exertional hypoxemia on 3 L nasal cannula pulse dose with his portable oxygen concentrator. 02/25/24 - CTA chest (ER) - No PE identified. 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 There is patchy consolidation in the right middle and bilateral lower lobes with additional regions of tree-in-bud opacity scattered throughout both lungs consistent with multifocal pneumonia. There is associated bronchial wall thickening and mucous plugging in the bilateral lower lobes. Tiny left pleural effusion. No septal line thickening to suggest pulmonary edema. No pneumothorax. Mild cardiomegaly. Atherosclerotic coronary artery calcifications. No pericardial effusion. 02/25/2024: ABG on 4 L cannula 7.39/35/63 01/15/24 - Home O2 eval - Required 2L/min O2 with ambulation and none at rest. 12/16/23 - PFT The test was performed and results interpreted in accordance with the 2019 and 2005 ATS/ERS Task Force guidelines respectively using the Global Lung Function Initiative-2012 reference equations. Patient demonstrated good effort and cooperation. Reproducibility criteria were met. The quality of the pre bronchodilator spirometry maneuver was Grade A and post bronchodilator spirometry maneuver was Grade A. Findings: Spirometry: There is decreased maximal expiratory airflow at all lung volumes with concave expiratory flow tracing. The contour the inspiratory flow tracing is normal. The pre bronchodilator FVC is 3.33 L, 82% predicted. The pre bronchodilator FEV1 is 2.02 L, 68% predicted. The pre bronchodilator FEV1: FVC ratio 61%. The post bronchodilator FVC is 3.41 L, representing a 2% increase. The post bronchodilator FEV1 is 2.09 L, representing a 3% increase. The post bronchodilator FEV1: FVC ratio 61%. Plethysmography: The total lung capacity is 6.43 L, 89% predicted. The functional residual capacity is 4.14 L, 106% predicted. The residual volume is 3.10 L, 115% predicted. The residual volume: Total lung capacity ratio is 48%. Diffusing capacity: The diffusing capacity unadjusted for hemoglobin and carboxyhemoglobin is 9.0, 37% predicted. The diffusing capacity adjusted for alveolar volume is 2.29, 64% predicted. Comparison to previous pulmonary function testing on 01/01/2022 the post bronchodilator FVC has decreased from 4.38 L to 3.41 L. The post bronchodilator FEV1 has decreased from 3.11 L to 2.09 L. the total lung capacity is decreased from 7.39 L to 6.43 L. The functional residual capacity has decreased from 4.95 L to 4.14 L. The residual volume is unchanged from 2.93 L to 3.10 L. The diffusing capacity unadjusted for hemoglobin and carboxyhemoglobin is decreased from 14.9 to 9.0. The diffusing capacity adjusted for alveolar volume decreased from 2.63 to 2.29 Impression: There is a mild obstructive abnormality. There is no significant improvement after inhaling a single dose of albuterol. The increase in residual volume to total lung volume ratio is consistent with hyperinflation from an obstructive abnormality. The diffusing capacity unadjusted for hemoglobin and carboxyhemoglobin is severely decreased and remains mildly decreased when adjusted for alveolar volume. Compared to prior pulmonary function testing on 01/01/2022 there has been a significant decrease in the FVC, FEV1, total lung capacity, functional residual capacity and diffusing capacity with no significant change in the residual volume. 09/16/23 - Home O2 eval - Required 2L/min O2 with ambulation and none at rest. 01/01/22 - Home O2 eval - Patient did not require supplemental oxygen at rest or with exertion. 01/01/22 - PFTs - Mild obstructive abnormality with normal FEV1 without significant improvement after inhaling a single dose of albuterol. Lung volumes normal. The diffusing capacity unadjusted for hemoglobin is moderately decreased and normalizes when adjusted for alveolar volume. 12/18/21 - Overnight oximetry on room air - Time with saturation less than or equal to 88% was 4.0 minutes. Patient does not qualify for supplemental oxygen at night. 10/10/2021 - ABG on 4L NC - 7.44/43/70. 10/20/21 - Chest XR - Persistent patchy bilateral airspace disease with possible improvement in the left lung, compatible with pneumonia. 10/11/2021 - CTA chest - Extensive bilateral pulmonary infiltrates and likely reactive hilar or mediastinal adenopathy. Small right pleural effusion. No evidence of pulmonary embolism. 10/11/2021 - Echo - LV systolic function mildly reduced, EF 45-50%. Grade I diastolic dysfunction. The inferior wall, inferoseptal wall, basal inferolateral wall, and mid inferolateral wall are hypokinetic. Mild LA enlargement. No pulmonary hypertension. Review of Systems Constitutional: Constitutional: Reports no additional constitutional complaints Eyes: Eyes: Reports no additional eye complaints ENT: Reports system reviewed and no additional complaints, except as documented Cardiovascular: Cardiovascular: Reports no additional cardiovascular complaints Respiratory: Respiratory: Reports no additional respiratory complaints Gastrointestinal: Gastrointestinal: Reports no additional gastrointestinal complaints Musculoskeletal: Musculoskeletal: Reports no additional musculoskeletal complaints Neurologic: Reports system reviewed and no additional complaints, except as documented Psychiatric: Psychiatric: Reports no additional psychiatric complaints Endocrine: Endocrine: Reports no additional endocrine complaints Hematologic/Lymphatic: Hematologic/Lymphatic: Reports no additional hematologic/lymphatic complaints Allergic/Immunologic: Allergic/Immunologic: Reports no additional allergic/immunologic complaints Exam Const: General: cooperative, healthy appearing and comfortable Orientation/consciousness: oriented to person, oriented to place and oriented to time HENMT: Head: normal to inspection Ears: hearing grossly normal bilaterally Eyes: General: appearance normal, both eyes and all related structures Neck: Neck: normal visual inspection Chest: Chest palpation & inspection: normal inspection of the chest Resp: Effort & Inspection: normal respiratory effort and able to speak in complete sentences Auscultation: crackles, no rales, no rhonchi, no wheezes and diminished lung sounds Other: basilar inspiratory crackles, Right greater than left . No wheezing Cardio: Jugular venous distension: no JVD GI: Inspection: normal to inspection Skin: General skin exam: normal color Neuro: General: oriented to person, oriented to place and oriented to time Extrem: General: normal to inspection Psych: Appearance: grossly normal Objective Data Vital Signs Vital Signs: Vital Signs - 24 hr 08/23/25 09:10 08/23/25 09:10 08/23/25 09:24 Temperature Pulse Rate 73 80 Respiratory Rate 20 20 Blood Pressure Pulse Oximetry 97 Oxygen Delivery Nasal Cannula Oxygen Flow Rate 2 08/23/25 10:00 08/23/25 11:51 08/23/25 12:00 Temperature 36.9 C Pulse Rate 74 79 85 Respiratory Rate 21 H Blood Pressure 125/48 L Pulse Oximetry 99 Oxygen Delivery Oxygen Flow Rate 08/23/25 14:11 08/23/25 14:25 08/23/25 15:24 Temperature Pulse Rate 79 79 Respiratory Rate 20 20 Blood Pressure Pulse Oximetry 97 Oxygen Delivery Nasal Cannula Oxygen Flow Rate 3 08/23/25 16:23 08/23/25 20:00 08/23/25 20:55 Temperature 37.5 C Pulse Rate 105 H 74 Respiratory Rate 20 20 Blood Pressure 114/69 Pulse Oximetry 97 94 Oxygen Delivery Nasal Cannula Oxygen Flow Rate 2 08/23/25 21:03 08/23/25 21:21 08/24/25 00:00 Temperature 36.2 C L Pulse Rate 84 74 70 Respiratory Rate 18 Blood Pressure 130/66 Pulse Oximetry 94 97 Oxygen Delivery Nasal Cannula Oxygen Flow Rate 2 08/24/25 04:00 08/24/25 08:21 Temperature 36.2 C L Pulse Rate 77 90 Respiratory Rate 18 18 Blood Pressure 126/87 Pulse Oximetry 97 Oxygen Delivery Oxygen Flow Rate Intake/Output Intake/Output: Intake & Output 08/21/25 08/22/25 08/23/25 08/24/25 23:59 23:59 23:59 23:59 Intake Total 1000 820 740 Output Total 30 700 250 Balance 970 120 490 Meds/Results Medications: Active Medications Generic Name Dose Route Start Last Admin Trade Name Freq PRN Reason Stop Dose Admin Acetaminophen 650 mg 08/22/25 23:22 Acetaminophen 325 Mg Tablet PO Q4H PRN Mild Pain (1-3) or Fever Acetylcysteine 200 mg 08/23/25 14:00 08/24/25 01:54 Acetylcysteine 20% Inhal Soln 800 Mg/4 Ml Vial INHALATION 200 mg Q6HRT GIOVANNY Administration Albuterol/Ipratropium 3 ml 08/23/25 08:00 08/24/25 08:01 Ipratropium 0.5 Mg/Albuterol Sulfate 2.5 Mg Ampul.Neb 3 Ml INHALATION 3 ml Q6HRT GIOVANNY Administration Aspirin 81 mg 08/23/25 09:00 08/24/25 08:22 Aspirin 81 Mg Enteric Tablet PO 81 mg DAILY GIOVANNY Administration Azithromycin 250 mg 08/24/25 09:00 08/24/25 08:22 Azithromycin 250 Mg Tablet PO 250 mg DAILY GIOVANNY Administration Bisacodyl 10 mg 08/23/25 04:05 Bisacodyl 10 Mg Suppository RECTAL DAILY PRN Constipation Bupropion HCl 150 mg 08/23/25 09:00 08/24/25 08:22 Bupropion Hcl Sr (12 Hr) 150 Mg Tab PO 150 mg Q12HR GIOVANNY Administration Ethambutol HCl 1,200 mg 08/23/25 09:00 08/24/25 08:22 Ethambutol Hcl 400 Mg Tablet PO 1,200 mg DAILY GIOVANNY Administration Fenofibrate 145 mg 08/23/25 09:00 08/24/25 08:22 Fenofibrate 145 Mg Tablet PO 145 mg QAM GIOVANNY Administration Guaifenesin 1,200 mg 08/23/25 09:00 08/24/25 08:22 Guaifenesin 12 Hr 600 Mg Tabcr PO 1,200 mg Q12HR GIOVANNY Administration Meropenem 1 gm/ Sodium 100 mls @ 200 mls/hr 08/23/25 14:00 08/24/25 01:51 Chloride IVPB 200 mls/hr Q12H GIOVANNY Administration Metoprolol Tartrate 50 mg 08/23/25 21:00 08/23/25 21:03 Metoprolol Tartrate 50 Mg Tab PO 50 mg HS GIOVANNY Administration Ondansetron HCl 4 mg 08/22/25 23:22 Ondansetron Inj 4 Mg/2 Ml Vial IV PUSH Q4H PRN Nausea Pantoprazole Sodium 40 mg 08/23/25 09:00 08/24/25 08:22 Pantoprazole 40 Mg Tablet PO 40 mg QAM GIOVANNY Administration Perflutren Lipid Microsphere 0 ml 08/23/25 04:03 Perflutren Lipid Microspheres 1.5 Ml Vial Diluted To 10 Ml Total Volume IV PUSH 08/26/25 04:03 ONCE PRN adequate visualization Protocol Rifampin 300 mg 08/23/25 14:00 08/24/25 08:21 Rifampin 300 Mg Capsule PO 300 mg Q12HR GIOVANNY Administration Sertraline HCl 50 mg 08/23/25 09:00 08/24/25 08:22 Sertraline Hcl 50 Mg Tablet PO 50 mg DAILY GIOVANNY Administration Tamsulosin HCl 0.4 mg 08/23/25 09:00 08/24/25 08:22 Tamsulosin Hcl 0.4 Mg Capsule PO 0.4 mg BID GIOVANNY Administration Radiology Results: ITS Impressions Chest X-Ray 08/22/25 20:48 IMPRESSION: 1. No significant change in a small right pleural effusion or of linear and reticular opacities in the right mid and bilateral lower lung zones which could represent atelectasis/scarring and/or pneumonia. Head CT 08/23/25 07:34 IMPRESSION: 1. Stable moderate nonspecific cerebral white matter disease, which likely represents chronic small vessel ischemic disease. Chest CT 08/23/25 09:14 IMPRESSION: 1. Moderate emphysema. 2. Diffuse lung disease with a peripheral and lower lung predominance with worsening in posterior segment right upper lobe, likely a combination of rounded atelectasis and pneumonia. 3. Chronic small right pleural effusion. Chronic bilateral pleural thickening. 4. Small sliding hiatal hernia. Labs Labs: Laboratory Results - last 24 hr 08/23/25 08/23/25 08/24/25 11:27 16:24 05:43 WBC 11.8 H 10.2 H RBC 2.76 L 2.65 L Hgb 7.4 L 7.2 L Hct 24.4 L 23.0 L MCV 88.4 86.8 MCH 26.8 27.2 MCHC 30.3 L 31.3 L RDW 16.7 H 16.8 H Plt Count 176 172 MPV 11.6 H 11.8 H Immature Gran % (Auto) 0.7 H 0.8 H Neut % (Auto) 86.8 H 82.9 H Lymph % (Auto) 3.1 L 5.4 L [place] % (Auto) 9.2 H 10.6 H Eos % (Auto) 0.0 0.1 Baso % (Auto) 0.2 0.2 Lymph # (Auto) 0.36 L 0.55 L [place] # (Auto) 1.1 H 1.1 H Eos # (Auto) 0.0 0.0 Baso # (Auto) 0.0 0.0 Abs Immat Gran (auto) 0.08 H 0.08 H Absolute Neuts (auto) 10.2 H 8.4 H Absolute Nucleated RBC 0.000 0.000 Nucleated RBC % 0.0 0.0 Sodium 131 L 129 L Potassium 4.2 3.9 Chloride 97 L 96 L Carbon Dioxide 28 28 Anion Gap 6 5 BUN 26 H 22 H Creatinine 1.07 0.91 Estim Creat Clear Calc 47 54 Estimated GFR > 60 > 60 Glucose 108 95 Calcium 8.7 8.5 Total Bilirubin 1.5 H 3.0 H AST 37 27 ALT 17 15 Alkaline Phosphatase 115 112 C-Reactive Protein 28.7 H 24.6 H NT-Pro-B Natriuret Pep 2630 H Total Protein 6.0 L 5.7 L Albumin 2.9 L 2.7 L Procalcitonin 0.5 0.3 Nasal MRSA (PCR) Not detected Influenza A (RT-PCR) Negative Influenza B (RT-PCR) Negative RSV (RT-PCR) Negative SARS-CoV-2 RNA (RT-PCR) Negative
--- NOTE | 2025-08-24 08:53 | WPDINFPN2 ---
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 All questions answered Patient was seen via video telehealth consultation with the assistance of staff. Chart, data, and patient independently reviewed. Patient was located at [facility] while I was located in my [place] office. Received verbal consent from patient. Subjective Date/time seen: 08/24/25 08:53 Interval history: Patient afebrile. Breathing stable. Patient feels he is near his baseline state of health. Review of Systems Review of Systems: All systems reviewed & are unremarkable except as noted in HPI and below Exam Narrative: Gen: NAD Pulm: no conversational dyspnea, minimal tachypnea Abd: nondistended Ext: no c/c/e Derm: no rash Objective Data Vital Signs Vital Signs: Vital Signs - 24 hr 08/23/25 09:10 08/23/25 09:10 08/23/25 09:24 Temperature Pulse Rate 73 80 Respiratory Rate 20 20 Blood Pressure Pulse Oximetry 97 Oxygen Delivery Nasal Cannula Oxygen Flow Rate 2 08/23/25 10:00 08/23/25 11:51 08/23/25 12:00 Temperature 98.5 F Pulse Rate 74 79 85 Respiratory Rate 21 H Blood Pressure 125/48 L Pulse Oximetry 99 Oxygen Delivery Oxygen Flow Rate 08/23/25 14:11 08/23/25 14:25 08/23/25 15:24 Temperature Pulse Rate 79 79 Respiratory Rate 20 20 Blood Pressure Pulse Oximetry 97 Oxygen Delivery Nasal Cannula Oxygen Flow Rate 3 08/23/25 16:23 08/23/25 20:00 08/23/25 20:55 Temperature 99.5 F Pulse Rate 105 H 74 Respiratory Rate 20 20 Blood Pressure 114/69 Pulse Oximetry 97 94 Oxygen Delivery Nasal Cannula Oxygen Flow Rate 2 08/23/25 21:03 08/23/25 21:21 08/24/25 00:00 Temperature 97.2 F L Pulse Rate 84 74 70 Respiratory Rate 18 Blood Pressure 130/66 Pulse Oximetry 94 97 Oxygen Delivery Nasal Cannula Oxygen Flow Rate 2 08/24/25 04:00 08/24/25 08:21 Temperature 97.2 F L Pulse Rate 77 90 Respiratory Rate 18 18 Blood Pressure 126/87 Pulse Oximetry 97 Oxygen Delivery Oxygen Flow Rate Intake/Output Intake/Output: Intake & Output 08/21/25 08/22/25 08/23/25 08/24/25 23:59 23:59 23:59 23:59 Intake Total 1000 820 740 Output Total 30 700 250 Balance 970 120 490 Meds/Results Medications: Active Medications Generic Name Dose Route Start Last Admin Trade Name Freq PRN Reason Stop Dose Admin Acetaminophen 650 mg 08/22/25 23:22 Acetaminophen 325 Mg Tablet PO Q4H PRN Mild Pain (1-3) or Fever Acetylcysteine 200 mg 08/23/25 14:00 08/24/25 01:54 Acetylcysteine 20% Inhal Soln 800 Mg/4 Ml Vial INHALATION 200 mg Q6HRT GIOVANYN Administration Albuterol/Ipratropium 3 ml 08/23/25 08:00 08/24/25 08:01 Ipratropium 0.5 Mg/Albuterol Sulfate 2.5 Mg Ampul.Neb 3 Ml INHALATION 3 ml Q6HRT GIOVANNY Administration Aspirin 81 mg 08/23/25 09:00 08/24/25 08:22 Aspirin 81 Mg Enteric Tablet PO 81 mg DAILY GIOVANNY Administration Azithromycin 250 mg 08/24/25 09:00 08/24/25 08:22 Azithromycin 250 Mg Tablet PO 250 mg DAILY GIOVANNY Administration Bisacodyl 10 mg 08/23/25 04:05 Bisacodyl 10 Mg Suppository RECTAL DAILY PRN Constipation Bupropion HCl 150 mg 08/23/25 09:00 08/24/25 08:22 Bupropion Hcl Sr (12 Hr) 150 Mg Tab PO 150 mg Q12HR GIOVANNY Administration Ethambutol HCl 1,200 mg 08/23/25 09:00 08/24/25 08:22 Ethambutol Hcl 400 Mg Tablet PO 1,200 mg DAILY GIOVANNY Administration Fenofibrate 145 mg 08/23/25 09:00 08/24/25 08:22 Fenofibrate 145 Mg Tablet PO 145 mg QAM GIOVANNY Administration Furosemide 20 mg 08/24/25 08:50 Furosemide Inj 40 Mg/4 Ml Vial IV PUSH 08/24/25 08:51 ONCE ONE Guaifenesin 1,200 mg 08/23/25 09:00 08/24/25 08:22 Guaifenesin 12 Hr 600 Mg Tabcr PO 1,200 mg Q12HR GIOVANNY Administration Meropenem 1 gm/ Sodium 100 mls @ 200 mls/hr 08/23/25 14:00 08/24/25 01:51 Chloride IVPB 200 mls/hr Q12H GIOVANNY Administration Metoprolol Tartrate 50 mg 08/23/25 21:00 08/23/25 21:03 Metoprolol Tartrate 50 Mg Tab PO 50 mg HS GIOVANNY Administration Ondansetron HCl 4 mg 08/22/25 23:22 Ondansetron Inj 4 Mg/2 Ml Vial IV PUSH Q4H PRN Nausea Pantoprazole Sodium 40 mg 08/23/25 09:00 08/24/25 08:22 Pantoprazole 40 Mg Tablet PO 40 mg QAM GIOVANNY Administration Perflutren Lipid Microsphere 0 ml 08/23/25 04:03 Perflutren Lipid Microspheres 1.5 Ml Vial Diluted To 10 Ml Total Volume IV PUSH 08/26/25 04:03 ONCE PRN adequate visualization Protocol Rifampin 300 mg 08/23/25 14:00 08/24/25 08:21 Rifampin 300 Mg Capsule PO 300 mg Q12HR GIOVANNY Administration Sertraline HCl 50 mg 08/23/25 09:00 08/24/25 08:22 Sertraline Hcl 50 Mg Tablet PO 50 mg DAILY GIOVANNY Administration Tamsulosin HCl 0.4 mg 08/23/25 09:00 08/24/25 08:22 Tamsulosin Hcl 0.4 Mg Capsule PO 0.4 mg BID GIOVANNY Administration Radiology Results: ITS Impressions Chest X-Ray 08/22/25 20:48 IMPRESSION: 1. No significant change in a small right pleural effusion or of linear and reticular opacities in the right mid and bilateral lower lung zones which could represent atelectasis/scarring and/or pneumonia. Head CT 08/23/25 07:34 IMPRESSION: 1. Stable moderate nonspecific cerebral white matter disease, which likely represents chronic small vessel ischemic disease. Chest CT 08/23/25 09:14 IMPRESSION: 1. Moderate emphysema. 2. Diffuse lung disease with a peripheral and lower lung predominance with worsening in posterior segment right upper lobe, likely a combination of rounded atelectasis and pneumonia. 3. Chronic small right pleural effusion. Chronic bilateral pleural thickening. 4. Small sliding hiatal hernia. Labs Labs: Laboratory Results - last 24 hr 08/23/25 08/23/25 08/24/25 11:27 16:24 05:43 WBC 11.8 H 10.2 H RBC 2.76 L 2.65 L Hgb 7.4 L 7.2 L Hct 24.4 L 23.0 L MCV 88.4 86.8 MCH 26.8 27.2 MCHC 30.3 L 31.3 L RDW 16.7 H 16.8 H Plt Count 176 172 MPV 11.6 H 11.8 H Immature Gran % (Auto) 0.7 H 0.8 H Neut % (Auto) 86.8 H 82.9 H Lymph % (Auto) 3.1 L 5.4 L [place] % (Auto) 9.2 H 10.6 H Eos % (Auto) 0.0 0.1 Baso % (Auto) 0.2 0.2 Lymph # (Auto) 0.36 L 0.55 L [place] # (Auto) 1.1 H 1.1 H Eos # (Auto) 0.0 0.0 Baso # (Auto) 0.0 0.0 Abs Immat Gran (auto) 0.08 H 0.08 H Absolute Neuts (auto) 10.2 H 8.4 H Absolute Nucleated RBC 0.000 0.000 Nucleated RBC % 0.0 0.0 Sodium 131 L 129 L Potassium 4.2 3.9 Chloride 97 L 96 L Carbon Dioxide 28 28 Anion Gap 6 5 BUN 26 H 22 H Creatinine 1.07 0.91 Estim Creat Clear Calc 47 54 Estimated GFR > 60 > 60 Glucose 108 95 Calcium 8.7 8.5 Total Bilirubin 1.5 H 3.0 H AST 37 27 ALT 17 15 Alkaline Phosphatase 115 112 C-Reactive Protein 28.7 H 24.6 H NT-Pro-B Natriuret Pep 2630 H Total Protein 6.0 L 5.7 L Albumin 2.9 L 2.7 L Procalcitonin 0.5 0.3 Nasal MRSA (PCR) Not detected Influenza A (RT-PCR) Negative Influenza B (RT-PCR) Negative RSV (RT-PCR) Negative SARS-CoV-2 RNA (RT-PCR) Negative
[2025-08-24] MEDS: FUROSEMIDE INJ 40 MG/4 ML VIAL 20 MG IV PUSH (09:05)
[2025-08-24] MEDS: MORPHINE SULFATE (*CRX) 30 MG TABCR PO (10:13)
--- NOTE | 2025-08-24 18:59 | ADMGEN ---
This patient, Russell Morse, was admitted to 3 [facility] Surg Room 307-01. Patient/family oriented to hospital policies and general routines including ID bracelet, bed and alarms, visiting hours, pain management, procedures, bathroom and other care routines, personal items, smoking policy, room service/diet, and visiting hours. Information on how to activate the Rapid Response Team has been discussed. Patient/Family are encouraged to report perceived risks to care and to ask questions if they do not understand what they are told or what they should do. received report from macarena.
[2025-08-24] MEDS: ACETAMINOPHEN 325 MG TABLET 650 MG PO (20:15)
[2025-08-24] MEDS: METOPROLOL TARTRATE 50 MG TAB PO (20:16)
[2025-08-25] VITALS (15 sets, daily range): BP systolic 116–147; BP diastolic 56–64; PULSE 68–102; RESP 16–24; TEMP 36.2–36.9; O2SAT 91–99
[2025-08-25] MEDS: IPRATROPIUM 0.5 MG/ALBUTEROL SULFATE 2.5 MG AMPUL.NEB 3 ML INHALATION ×4 (02:10→19:43)
[2025-08-25] MEDS: ACETYLCYSTEINE 20% INHAL SOLN 800 MG/4 ML VIAL 200 MG INHALATION ×4 (02:10→19:42)
[2025-08-25] MEDS: MEROPENEM 1 GM in SODIUM CHLORIDE 0.9% IV 100 ML 200 ML IVPB ×3 (05:01→21:18)
[2025-08-25 06:13] LABS: Hematocrit 23.8 % (42.0-52.0); Hemoglobin 7.3 g/dL (14.0-18.0); Immature Granulocyte Percent A 1.1 % (0-0.5); Lymphocytes Absolute Auto 0.65 K/mm3 (0.9-3.2); Mean Corpuscular HGB Conc 30.7 g/dl (32-36); Mean Corpuscular Hemoglobin 26.7 pg (26-34); Mean Corpuscular Volume 87.2 fl (80-100); Nucleated Red Blood Cells Absolute Auto 0.000 K/mm3 (0.0-0.012); Nucleated Red Blood Cells Perc 0.0 % (0.0-0.2); Platelet Count Result 231 k/mm3 (150-375); Red Blood Count 2.73 M/mm3 (4.6-6.20); White Blood Count 8.3 K/mm3 (4.5-10.0)
[2025-08-25] MEDS: MORPHINE SULFATE (*CRX) 30 MG TABCR PO (06:15)
[2025-08-25 07:43] LABS: Alanine Aminotransferase 14 U/L (6-50); Albumin Level 2.8 g/dL (3.5-5.1); Alkaline Phosphatase 119 U/L (38-126); Anion Gap 6 mmol/L (4-12); Aspartate Amino Transferase 27 U/L (17-59); Bilirubin,Total 3.3 mg/dL (0.2-1.3); Blood Urea Nitrogen 23 mg/dL (9-20); Calcium 8.9 mg/dL (8.4-10.2); Carbon Dioxide 31 mmol/L (22-30); Chloride 93 mmol/L (98-107); Estimated CRCL calculation 50 ml/min; Estimated Glomerular Filt Rate > 60; Glucose 88 mg/dL (65-110); Potassium 3.7 mmol/L (3.4-5.0); Sodium 130 mmol/L (137-145); Total Protein 5.9 g/dL (6.3-8.2)
--- NOTE | 2025-08-25 07:52 | P.PNIM_ITS ---
Progress Note: A&P Assessment and Plan (1) Pneumonia: Qualifiers: Laterality: right Lung location: unspecified part of lung Pneumonia type: due to unspecified organism Qualified Code(s): J18.9 - Pneumonia, unspecified organism Code(s): J18.9 - Pneumonia, unspecified organism Status: Acute Assessment and Plan: -multiple admissions for recurrent pneumonia. Has history of SNEHA infection. - admit WBC 11, afebrile - CT Chest with moderate emphysema, diffuse lung disease with a peripheral and lower lung predominance with worsening in posterior segment RUL, chronic small right pleural effusion and bilateral pleural thickening - blood cultures NGTD - pulm consulted. Discussed case with Dr. Gottlieb who felt changes mostly chronic or related to mucus plugging, less likely acute bacterial process. - ID consulted. Stopped cipro, started Merrem x 5 days, stop date 08/27. Continue SNEHA treatment with daily azithromycin, ethambutol, rifampin. -sputum cultures pending. (2) Combined systolic and diastolic congestive heart failure: Qualifiers: Heart failure chronicity: acute on chronic Qualified Code(s): I50.43 - Acute on chronic combined systolic (congestive) and diastolic (congestive) heart failure Code(s): I50.40 - Unspecified combined systolic (congestive) and diastolic (congestive) heart failure Status: Acute Assessment and Plan: - echo 2023 with EF 49%, G1 DD - suspect component of acute exacerbation with pleural effusions, elevate BNP, crackles - received IV lasix x2, transitioned to PO lasix 20 mg daily (3) AMS (altered mental status): Code(s): R41.82 - Altered mental status, unspecified Status: Acute Assessment and Plan: - presented alert and oriented x1 - CT head with no acute process - suspect infectious in setting of UTI and possible pneumonia - continue treatment of bacterial processes - monitor mental status - now back to baseline (4) COPD (chronic obstructive pulmonary disease): Code(s): J44.9 - Chronic obstructive pulmonary disease, unspecified Status: Acute Assessment and Plan: - not in acute exacerbation -continue Mucinex and Duonebs (5) Chronic hypoxic respiratory failure, on home oxygen therapy: Code(s): J96.11 - Chronic respiratory failure with hypoxia; Z99.81 - Dependence on supplemental oxygen Status: Acute Assessment and Plan: -patient is chronically on oxygen at 4 L per nasal cannula. - currently weaned to 1L NC (6) Depression: Code(s): F32.A - Depression, unspecified Status: Acute Assessment and Plan: -continue with bupropion -trazodone has been on hold. (7) Anxiety disorder, unspecified: Code(s): F41.9 - Anxiety disorder, unspecified Status: Acute Assessment and Plan: -continue bupropion, Zoloft (8) HTN (hypertension): Qualifiers: Hypertension type: primary hypertension Qualified Code(s): I10 - Essential (primary) hypertension Code(s): I10 - Essential (primary) hypertension Status: Chronic Assessment and Plan: - BP stable - continue home meds (9) Hyponatremia: Code(s): E87.1 - Hypo-osmolality and hyponatremia Status: Acute Assessment and Plan: - chornically low -Na 130, near baseline. Monitor sodium closely with diuresis. (10) SANDI (acute kidney injury): Code(s): N17.9 - Acute kidney failure, unspecified Status: Acute Assessment and Plan: -Cr 1.39 on admit. Received IV lasix and fluids in ED. Cr improved this AM. -hold home sulindac (11) SNEHA (mycobacterium avium-intracellulare): Code(s): A31.0 - Pulmonary mycobacterial infection Status: Acute Assessment and Plan: -continue azithromycin, ethambutol and rifampin (12) Abnormal urinalysis: Code(s): R82.90 - Unspecified abnormal findings in urine Status: Acute Assessment and Plan: - UA with positive nitrates, 1+ LE - urine culture with no growth Plan DVT prophylaxis: Lovenox Code status: DNR Dispo: back to [facility] once Merrem complete, likely 08/28 Subjective Date/time seen: 08/25/25 07:52 Interval history: Patient seen and examined at bedside. Breathing somewhat improved. Discussed staying the weekend for IV antibiotics. Review of Systems Review of Systems: All systems reviewed & are unremarkable except as noted in HPI and below Exam Narrative: General: NAD. Appears chronically debilitated. Eyes: EOMI ENT: neck supple Cardiovascular: Regular rate and rhythm Respiratory: scattered rhonchi bilaterally, respirations even and unlabored on 1L NC Gastrointestinal: Soft, non tender Genitourinary: no suprapubic tenderness Musculoskeletal: No edema Skin: warm, dry Neuro: Alert and oriented x4 Psych: Mood appropriate Objective Data Vital Signs Vital Signs: Vital Signs - 24 hr 08/24/25 08:00 08/24/25 08:21 08/24/25 13:09 Temperature Pulse Rate 90 90 Respiratory Rate 18 17 Blood Pressure Pulse Oximetry 93 Oxygen Delivery Nasal Cannula Oxygen Flow Rate 2 08/24/25 13:31 08/24/25 16:00 08/24/25 20:00 Temperature 97.4 F L 99.8 F H Pulse Rate 88 89 Respiratory Rate 18 18 Blood Pressure 137/61 130/67 Pulse Oximetry 96 97 Oxygen Delivery Nasal Cannula Oxygen Flow Rate 4 08/24/25 20:00 08/24/25 20:16 08/24/25 21:17 Temperature Pulse Rate 72 64 Respiratory Rate 18 Blood Pressure Pulse Oximetry 95 Oxygen Delivery Nasal Cannula Oxygen Flow Rate 2 08/25/25 00:00 08/25/25 02:10 08/25/25 02:15 Temperature 98.4 F Pulse Rate 69 68 68 Respiratory Rate 18 16 16 Blood Pressure 126/56 L Pulse Oximetry 98 97 Oxygen Delivery Nasal Cannula Oxygen Flow Rate 1 08/25/25 02:20 08/25/25 04:00 08/25/25 07:20 Temperature 97.7 F Pulse Rate 70 73 70 Respiratory Rate 16 18 18 Blood Pressure 124/61 Pulse Oximetry 91 Oxygen Delivery Oxygen Flow Rate Intake/Output Intake/Output: Intake & Output 08/22/25 08/23/25 08/24/25 08/25/25 23:59 23:59 23:59 23:59 Intake Total 2418 550 2073 100 Output Total 30 700 1850 200 Balance 970 120 670 -100 Meds/Results Medications: Active Medications Generic Name Dose Route Start Last Admin Trade Name Freq PRN Reason Stop Dose Admin Acetaminophen 650 mg 08/22/25 23:22 08/24/25 20:15 Acetaminophen 325 Mg Tablet PO 650 mg Q4H PRN Administration Mild Pain (1-3) or Fever Acetylcysteine 200 mg 08/23/25 14:00 08/25/25 07:18 Acetylcysteine 20% Inhal Soln 800 Mg/4 Ml Vial INHALATION 200 mg Q6HRT GIOVANNY Administration Albuterol/Ipratropium 3 ml 08/23/25 08:00 08/25/25 07:17 Ipratropium 0.5 Mg/Albuterol Sulfate 2.5 Mg Ampul.Neb 3 Ml INHALATION 3 ml Q6HRT GIOVANNY Administration Aspirin 81 mg 08/23/25 09:00 08/24/25 08:22 Aspirin 81 Mg Enteric Tablet PO 81 mg DAILY GIOVANNY Administration Azithromycin 250 mg 08/24/25 09:00 08/24/25 08:22 Azithromycin 250 Mg Tablet PO 250 mg DAILY GIOVANNY Administration Baclofen 10 mg 08/24/25 09:45 Baclofen 10 Mg Tablet PO Q8H PRN Muscle Spasm Bisacodyl 10 mg 08/23/25 04:05 Bisacodyl 10 Mg Suppository RECTAL DAILY PRN Constipation Bupropion HCl 150 mg 08/23/25 09:00 08/24/25 20:16 Bupropion Hcl Sr (12 Hr) 150 Mg Tab PO 150 mg Q12HR GIOVANNY Administration Ethambutol HCl 1,200 mg 08/23/25 09:00 08/24/25 08:22 Ethambutol Hcl 400 Mg Tablet PO 1,200 mg DAILY GIOVANNY Administration Fenofibrate 145 mg 08/23/25 09:00 08/24/25 08:22 Fenofibrate 145 Mg Tablet PO 145 mg QAM GIOVANNY Administration Guaifenesin 1,200 mg 08/23/25 09:00 08/24/25 20:16 Guaifenesin 12 Hr 600 Mg Tabcr PO 1,200 mg Q12HR GIOVANNY Administration Meropenem 1 gm/ Sodium 100 mls @ 200 mls/hr 08/24/25 14:00 08/25/25 05:31 Chloride IVPB 08/27/25 23:59 Infused Q8HR GIOVANNY Infusion Metoprolol Tartrate 50 mg 08/23/25 21:00 08/24/25 20:16 Metoprolol Tartrate 50 Mg Tab PO 50 mg HS GIOVANNY Administration Morphine Sulfate 30 mg 08/24/25 09:45 08/25/25 06:15 Morphine Sulfate (*Crx) 30 Mg Tabcr PO 30 mg Q12H PRN Administration Pain Ondansetron HCl 4 mg 08/22/25 23:22 Ondansetron Inj 4 Mg/2 Ml Vial IV PUSH Q4H PRN Nausea Pantoprazole Sodium 40 mg 08/23/25 09:00 08/24/25 08:22 Pantoprazole 40 Mg Tablet PO 40 mg QAM GIOVANNY Administration Perflutren Lipid Microsphere 0 ml 08/23/25 04:03 Perflutren Lipid Microspheres 1.5 Ml Vial Diluted To 10 Ml Total Volume IV PUSH 08/26/25 04:03 ONCE PRN adequate visualization Protocol Polyethylene Glycol 17 gm 08/24/25 09:37 08/24/25 10:14 Polyethylene Glycol 3350 17 Gm Powd.Pack PO 17 gm QAM PRN Administration Constipation Rifampin 300 mg 08/23/25 14:00 08/24/25 20:16 Rifampin 300 Mg Capsule PO 300 mg Q12HR GIOVANNY Administration Sertraline HCl 50 mg 08/23/25 09:00 08/24/25 08:22 Sertraline Hcl 50 Mg Tablet PO 50 mg DAILY GIOVANNY Administration Tamsulosin HCl 0.4 mg 08/23/25 09:00 08/24/25 17:19 Tamsulosin Hcl 0.4 Mg Capsule PO 0.4 mg BID GIOVANNY Administration Radiology Results: ITS Impressions Chest X-Ray 08/22/25 20:48 IMPRESSION: 1. No significant change in a small right pleural effusion or of linear and reticular opacities in the right mid and bilateral lower lung zones which could represent atelectasis/scarring and/or pneumonia. Head CT 08/23/25 07:34 IMPRESSION: 1. Stable moderate nonspecific cerebral white matter disease, which likely represents chronic small vessel ischemic disease. Chest CT 08/23/25 09:14 IMPRESSION: 1. Moderate emphysema. 2. Diffuse lung disease with a peripheral and lower lung predominance with worsening in posterior segment right upper lobe, likely a combination of rounded atelectasis and pneumonia. 3. Chronic small right pleural effusion. Chronic bilateral pleural thickening. 4. Small sliding hiatal hernia. Labs Labs: Laboratory Results - last 24 hr 08/23/25 08/25/25 11:27 05:53 WBC 8.3 RBC 2.73 L Hgb 7.3 L Hct 23.8 L MCV 87.2 MCH 26.7 MCHC 30.7 L RDW 16.9 H Plt Count 231 MPV 11.4 H Immature Gran % (Auto) 1.1 H Neut % (Auto) 77.4 H Lymph % (Auto) 7.9 L Grady % (Auto) 12.7 H Eos % (Auto) 0.7 Baso % (Auto) 0.2 Lymph # (Auto) 0.65 L Grady # (Auto) 1.1 H Eos # (Auto) 0.1 Baso # (Auto) 0.0 Abs Immat Gran (auto) 0.09 H Absolute Neuts (auto) 6.4 Absolute Nucleated RBC 0.000 Nucleated RBC % 0.0 Sodium 130 L Potassium 3.7 Chloride 93 L Carbon Dioxide 31 H Anion Gap 6 BUN 23 H Creatinine 1.01 Estim Creat Clear Calc 50 Estimated GFR > 60 Glucose 88 Calcium 8.9 Total Bilirubin 3.3 H AST 27 ALT 14 Alkaline Phosphatase 119 Total Protein 5.9 L Albumin 2.8 L M.pneumoniae IgM Titer <770 Quality VTE Prophylaxis VTE prophylaxis: mechanical ordered and pharmacologic ordered
[2025-08-25 08:19] LABS: NT Pro B Type Natriuretic Pept 2600 pg/mL (19.9-100)
[2025-08-25 08:29] LABS: CRP 22.0 mg/dL (<1.0)
[2025-08-25 08:54] LABS: Procalcitonin 0.2 ng/mL
[2025-08-25] MEDS: AZITHROMYCIN 250 MG TABLET PO (09:33)
[2025-08-25] MEDS: ASPIRIN 81 MG ENTERIC TABLET PO (09:33)
[2025-08-25] MEDS: FENOFIBRATE 145 MG TABLET PO (09:33)
[2025-08-25] MEDS: SERTRALINE HCL 50 MG TABLET PO (09:34)
[2025-08-25] MEDS: ETHAMBUTOL HCL 400 MG TABLET 1200 MG PO (09:34)
[2025-08-25] MEDS: buPROPion HCL SR (12 HR) 150 MG TAB PO ×2 (09:34→21:18)
[2025-08-25] MEDS: TAMSULOSIN HCL 0.4 MG CAPSULE PO ×2 (09:35→17:53)
[2025-08-25] MEDS: guaiFENesin 12 HR 600 MG TABCR 1200 MG PO ×2 (09:35→21:17)
[2025-08-25] MEDS: PANTOPRAZOLE 40 MG TABLET PO (09:35)
--- NOTE | 2025-08-25 11:00 | PC.NURSE ---
Patient has maceration on cocyx. Patient is A and O 4 today. I educated patient on turning to help the wound on his bottom because he was calling asking for cream to be put on his cocyx. I put the cream on, he can turn himself. I will reinforce this to the patient throughout the day.
--- NOTE | 2025-08-25 11:15 | P.PNPL_ITS ---
Progress Note: A&P Assessment and Plan (1) COPD (chronic obstructive pulmonary disease): Code(s): J44.9 - Chronic obstructive pulmonary disease, unspecified Status: Acute Assessment and Plan: Gold grade 2 group E COPD Regarding his COPD, patient with 60 pack year tobacco use quit in 2019, alpha 1 anti trypsin genotype MM, [id number] apical predominant centrilobular and paraseptal emphysema on his CT scan from 10/11/2021. Of note he has had COVID pneumonia on 09/10/2021 and Pseudomonas aeruginosa on 10/10/2021 and 04/26/2025 and 06/16/2025. His PFTs from 12/16/2023 show mild obstruction with FEV1 68%, ratio 61%. No bronchodilator response, hyperinflation, severely decreased DLCO the remains mildly decreased when adjusted for alveolar volume. Compared to 01/01/2022 had been a significant decrease in the FVC, FEV1, total lung capacity, functional residual capacity and diffusing capacity. When admitted for pneumonia had an ABG on 02/25/2024 on 3 L nasal cannula 7.44/36/67. 10/04/2024: ABG on 2 L 7.43/41/75. 06/29/2025: 2 L ABG 7.37/49/113. 10/04/2024: White blood cell count 11.1 eosinophils 3.2%=355/uL. 04/09/2024 white blood cell count 11.1, eosinophils 0.4%=44/uL. 06/28/2025 white blood cell count 14.8, 1.8%=266 uL. 08/22/2025: White blood cell count 11.0, eosinophils 0% equals 0 per micro L. 08/23/25: Patient tells me he has 2 days worsening cough and breathing but denied fever, chills, change in his phlegm volume or production and no hemoptysis. He has no wheezing on exam. He is debilitated, he has a poor ineffective cough and can not clear his secretions. We has chronic hypoxemic respiratory failure on 4 L nasal cannula at rest and with activity and currently is on 2 L nasal cannula. Patient had CT scan of the chest compared to 07/29/2025 with no change in his emphysema, small right and trace left pleural effusion, worse infiltrate posterior segment of the right upper lobe, superior segment of the left lower lobe, dependent areas of the right lower lobe and no change in the dependent infiltrates in his left lower lobe. Plan: I do not feel this is a COPD exacerbation. He has no wheezing on exam. I do not recommend systemic or inhaled steroids. In the past the patient has required DuoNebs q.6, Mucomyst nebulizers q.6, guaifenesin 1200, vest b.i.d., and Cornet flutter valve Q 4 to help him expectorate and I will initiate these treatments. The patient is at very high risk for mucus plugging which can result in acute hypoxemia. Apparently was hypoxemic at the retirement but in the emergency department he was on his baseline 4 L with saturations 100%. He may have had a mucus plug at the retirement. Regarding his new infiltrates on his CT scan. This is recurring pattern for this patient. Possible etiology of these recurrent infiltrates include atelectasis, mucus plugging, or infection. I will treat him aggressively for atelectasis and mucus plugging as above. He has no other symptoms of pulmonary bacterial infection, His oxygen requirements are actually improved from his baseline. procalcitonin 0.5. I am not convinced the patient has a new bacterial infection in his lungs. He was empirically started on ciprofloxacin and he tells me he is back at his baseline after 1 dose. Consider discontinuation of ciprofloxacin. I have sent a respiratory pathogen panel, urine for Legionella, urine for pneumococcal, serum mycoplasma IgM, COVID, influenza, RSV RT PCR. He was given 1 dose of IV Lasix and has responded to IV Lasix in the past. agree with gentle diuresis as tolerated by his cardiac and renal systems. 08/24/25: Patient said he had worse shortness of breath. Worse cough with less phlegm. The phlegm he was producing this screen. I asked him to expectorate and he expectorated 4 times with difficulty. After this expectoration his said his breathing was better. When I enter the room he was on 2 L nasal cannula saturations 95%. I decreased him to 1 L and his saturation was 93%. He is afebrile. White blood cell count 10.2, creatinine 0.91 procalcitonin is decreased from 0.5 on 08/23/2025 to 0.3 today. His CRP is decreased from 20/8 0.7 on 08/23/2025 to 24.6. He is cumulative positive 1.5 L since admission. His weight today is 70.2. Plan: I do not believe he is having a COPD exacerbation. His shortness of breath this morning was partially alleviated by expectoration of phlegm. Continue DuoNebs q.6 hours, Mucomyst q.6 hours, guaifenesin 1200, vest therapy b.i.d. and Cornet flutter valve for phlegm expectoration. I have decreased his oxygen to 1 L nasal cannula. Infectious disease consult has placed the patient on meropenem, day 2. He was given 1 dose of IV Lasix 20 mg on 08/23 and has responded to IV Lasix in the past. BNP 2630 He is positive 1.5 L since admission. agree with gentle diuresis as tolerated by his cardiac and renal systems. I have ordered 20 of Lasix IV today. 08/25/2025: Patient tells me he is breathing normal at his baseline today. He denies cough, phlegm or hemoptysis. He is afebrile. When I enter the room he was on 1.5 L nasal cannula oxygen with saturations 96%. I decreased him to Ro om air and after 4 minutes his saturations were 88% and I placed him on 1 L and his saturations were 94%. white blood cell count 8.3, creatinine 1.01, CRP has decreased from 24.6 on 08/24/2025 to 22 today. BNP has remain unchanged from 2630 on 08/23/2025 to 2600 today. Procalcitonin slightly decreased from 0.3 on 08/24/2025 to 0.2 today. yesterday the patient was positive 670 mL, cumulative he is positive 1.6 L since admission. His weight is 69.4. Plan: Patient breathing has improved with meropenem day 3, Lasix diuresis, and aggressive treatment for sputum expectoration with DuoNebs q.6, Mucomyst q.6, guaifenesin 1200 b.i.d., vest b.i.d. and Cornet flutter valve. His oxygenation has improved and he is on 1 L which was a baseline for him on his last admission in June of 2025. Pulmonary inpatient services will resume on 08/28/2025. Call the on-call physician with questions. Discussed with Patricia Jeffers, will follow with you. (2) Chronic hypoxic respiratory failure, on home oxygen therapy: Code(s): J96.11 - Chronic respiratory failure with hypoxia; Z99.81 - Dependence on supplemental oxygen Status: Acute Assessment and Plan: on 07/01/2025 when I saw him in the hospital he was on 1 L at rest, 4 L with activity and 2 L at night. Since then he tells me he has been wearing 4 L 24- 7. 08/23/2025: Patient's baseline is 4 L nasal cannula and currently his on 2 L nasal cannula with saturations 97%. Plan: Goal saturation 90-94%. Adjust oxygen accordingly. 08/24/2025: I have decreased to 1 L nasal cannula Plan: Goal saturations 90-94%, adjust oxygen accordingly 08/25/25: I have decreased him to 1 L today and his saturations are 94%. 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 patient started on rifabutin 300 q.day, azithromycin 500 mg q.day, ethambutol 1200 mg q.day on 06/05/2025. Patient with a history of SNEHA in sputum, multiple pulmonary infections requiring antibiotics on 02/25/2024, 04/10/2024, 09/08/2024, 10/04/2024, 11/04/2024, 11/20/2024, 12/02/2024, 03/02/2025, 04/25/2025, 05/12/2025, 05/22/2025, (started SNEHA treatment 06/05/25), 06/15/2025, 06/28/2025, 07/18/2025, 07/29/2025 and 08/22/25. Other comorbidities include COPD and history of fluid overload. Patient had CT scan of the chest compared to 07/29/2025 with no change in his emphysema, small right and trace left pleural effusion, worse infiltrate posterior segment of the right upper lobe, superior segment of the left lower lobe, dependent areas of the right lower lobe and no change in the dependent infiltrates in his left lower lobe. 08/23/25: Patient reportedly sent to the hospital with decrease oxygen saturation but currently he is on 2 L nasal cannula now with a baseline of 4 L nasal cannula. He says that he is breathing normally after treatment with bronchodilators, IV fluids, 1 dose of Cipro. He is afebrile and has no respiratory complaints. His procalcitonin is 0.5. Plan: Infectious disease consult placed. Await recommendations regarding ethambutol 1200 mg p.o. q.day, azithromycin 250 mg p.o. q.day, and rifabuton 300 mg p.o. q.day. 08/24/2025: Infectious disease team has restarted his SNEHA medicines. Plan: Ethambutol 1200 mg p.o. q.day, azithromycin 250 p.o. q.day, rifampin 300 mg q.12 hours. Management per Infectious Disease team. 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 He has required antibiotics for lung infections on: 02/25/2024, 04/10/2024, 09/08/2024, 10/04/2024, 11/04/2024, 11/20/2024, 12/02/2024, 03/02/2025, 04/25/2025, 05/12/2025, 05/22/2025, 05/30/2025, 06/15/2025, 06/28/2025, 07/18/2025, 07/29/2025 and 08/22/25. Patient recently admitted to the hospital from 06/15/2025 to 06/23/2025 for shortness of breath and hypoxia. he was treated with Levaquin, pulmonary hygiene maneuvers and his azithromycin was decreased from 500 mg p.o. q.day to 250 mg p.o. q.day due to hearing decrease. Patient left the hospital on 06/23/2024 in no respiratory distress but he was weak and fatigued easily. Patient recently admitted to the hospital from 06/28/2025 through 07/02/2025 for weakness, shortness of breath and hypoxia. he was 9 compliant with his SNEHA medicines which were restarted. He was deconditioned and could walk 80 ft. He was treated with DuoNebs q.6, Mucomyst nebulizers q.6, guaifenesin 1200, vest b.i.d., Cornet flutter valve Q 4 because he was debilitated and could not expectorate. Discharged to SNF facility Patient recently admitted to the hospital 07/18/2025 through 07/23/[address] head negative. Thought to be related from his transition from [facility] to back home. Discharged to [facility]. Patient recently admitted to the hospital 07/29/2025 through 08/05/2025 for possible community-acquired pneumonia, Mild SANDI. Treated with ciprofloxacin. 08/23/2023: Patient presented from [facility] with altered mental status and decrease oxygen saturation. Apparently he was lethargic, not getting out of bed and his mental status had decreased to a and O x1. He was given Narcan with no improvement. Blood pressure was 98/41, heart rate 66 4, respirations 17, afebrile, 4 L nasal cannula saturation 100%. He had coarse breath sounds bilaterally with no wheezing. White blood cell count 11.0, creatinine 1.39, serum bicarb 28. Venous blood gas on 4 L nasal cannula 7.37/45/ less than 27. Lactic acid 1.5. Patient was given 1 L IV fluid with improvement in blood pressure. Patient was started on ciprofloxacin. Patient had CT scan of the chest compared to 07/29/2025 with no change in his emphysema, small right and trace left pleural effusion, worse infiltrate posterior segment of the right upper lobe, superior segment of the left lower lobe, dependent areas of the right lower lobe and no change in the dependent infiltrates in his left lower lobe. Currently the patient tells me his name. States he is in [facility]. States the date is 08/28/2025. 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 Correctly names the pen, pen cap and clip of the [place] cap. He is nonfocal if the with his upper extremities and lower extremities. When I talked to the patient this morning he said that on 08/21/2025 he was normal during the day but later that night he developed shortness of breath, worse cough with minimal phlegm production and no blood. He denied fever. He slept that night but on 08/22/2025 he had worsening breathing, more phlegm production and cough. he complains that he can not expectorate his phlegm. Symptoms progressed and he presented to the emergency room. He is breathing normal, his cough is gone he has no phlegm and no blood. He is afebrile. When I enter the room his saturations on 4 L were 98%. I decreased him to 2 L and his saturations were 97%. when I asked the patient to cough as before he is debilitated, weak and has an ineffective cough and cannot clear his secretions. He is afebrile. White blood cell count 11.8, creatinine 1.07, BUN 26, BNP is 2630, CRP is pending, procalcitonin is pending. 08/24/25: Patient said he had worse shortness of breath. Worse cough with less phlegm. The phlegm he was producing this screen. I asked him to expectorate and he expectorated 4 times with difficulty. After this expectoration his said his breathing was better. When I enter the room he was on 2 L nasal cannula saturations 95%. I decreased him to 1 L and his saturation was 93%. He is afebrile. White blood cell count 10.2, creatinine 0.91 procalcitonin is decreased from 0.5 on 08/23/2025 to 0.3 today. His CRP is decreased from 20/8 0.7 on 08/23/2025 to 24.6. He is cumulative positive 1.5 L since admission. His weight today is 70.2. 08/25/2025: Patient tells me he is breathing normal at his baseline today. He denies cough, phlegm or hemoptysis. He is afebrile. When I enter the room he was on 1.5 L nasal cannula oxygen with saturations 96%. I decreased him to Room air and after 4 minutes his saturations were 88% and I placed him on 1 L and his saturations were 94%. white blood cell count 8.3, creatinine 1.01, CRP has decreased from 24.6 on 08/24/2025 to 22 today. BNP has remain unchanged from 2630 on 08/23/2025 to 2600 today. Procalcitonin slightly decreased from 0.3 on 08/24/2025 to 0.2 today. yesterday the patient was positive 670 mL, cumulative he is positive 1.6 L since admission. His weight is 69.4. DATA (infectious disease): 06/23/25:. His sputum shows moderate growth of Pseudomonas aeruginosa (recurrent) and Lucia. Pseudomonas sensitive to amikacin, aztreonam, ceftazidime, cefepime, gentamicin, meropenem, Zosyn and tobramycin. Intermediate to ciprofloxacin and imipenem. Resistant to Levaquin. 12/15/2024 sputum with AFB verified on 01/14/25 and grew SNEHA on 03/03/25. Sensitivities 03/20/25. On 03/20/25 patient referred to [facility] with appointment scheduled for 05/02/2025. Sputum on 12/16/2024 with AFB verified on 01/20/25 and grew SNEHA on 02/01/25.?Sensitivities 03/28/25. 2024 admissions: * 05/30/2025 [place] admission shortness of breath; transferred to [place] 06/04 to 06/07; discharged on Levaquin to continue until June 18; continue SNEHA meds * 05/12/2025, ER visit, shortness of breath, home. * 04/25/25 -04/28/25; admitted [place] respiratory distress, hypoxemia, transferred to [place]; ID saw him 05/02/25; SNEHA; started Rx w azithromycin 500 mg/D, Rifabutin 300 mg/D, ethambutol 1200 mg/ day initial sputum with SNEHA was 12/16/2024 with AFB verified on 01/20/25 and grew SNEHA on 02/01/25.?Sensitivities 03/28/25. QuantiFERON gold was negative on 01/24/25. ORGANISM: MYCOBACTERIUM AVIUM COMPLEX AMIKACIN: 16 S mcg/mL AMIKACIN (LIPOSOMAL, INHALED): 16 S mcg/mL CIPROFLOXACIN: >8 mcg/mL CLARITHROMYCIN: 2 S mcg/mL CLOFAZIMINE: 0.25 mcg/mL DOXYCYCLINE: >8 mcg/mL LINEZOLID: 16 I mcg/mL MINOCYCLINE: >8 mcg/mL MOXIFLOXACIN: 4 R mcg/mL RIFABUTIN: 1 mcg/mL RIFAMPIN: >4 mcg/mL STREPTOMYCIN: >32 * This is a corrected result. * A prior result that was reported as final has been changed. 1. Mycobacterium avium complex M.I.C. RX --------- --- Rifampin AFB >4 S Streptomycin AFB R Amikacin AFB 16 S Moxifloxacin AFB R DATA (imaging and PFT): 08/22/25: EXAMINATION:CT diagnostic chest w con DATE: 08/22/2025 22:25 INDICATION: Hypoxia. TECHNIQUE: Computed tomography (CT) of the chest was performed with 75 mL Omnipaque 350 intravenous contrast. Automated exposure control and iterative reconstruction technique were employed. The dose-length product (DLP) was 229.16 mGy-cm. COMPARISON: Chest CT 07/29/2025 FINDINGS: There is moderate emphysema. There are small right and trace left pleural effusions with pleural thickening. There is chronic peripheral septal thickening in the lungs. There are peripheral airspace opacities in all lobes with a lower lung predominance with worsening in posterior segment right upper lobe. There are tree-in-bud opacities in left upper lobe posteriorly. There are nodules in the thyroid measuring up to 5 mm, likely not clinically significant. The heart size is normal. There are coronary artery calcifications. No pericardial effusion. There is mild mediastinal lymphadenopathy, likely reactive. Calcified mediastinal lymph nodes are consistent with old granulomatous disease. Calcifications in the spleen are consistent with old granulomatous disease. There are cysts in the liver measuring up to 12 mm. There are bridging endplate osteophytes at multiple levels in the spine, consistent with diffuse idiopathic skeletal hyperostosis (DISH). There is moderate thoracic spondylosis. IMPRESSION: 1. Moderate emphysema. 2. Diffuse lung disease with a peripheral and lower lung predominance with worsening in posterior segment right upper lobe, likely a combination of rounded atelectasis and pneumonia. 3. Chronic small right pleural effusion. Chronic bilateral pleural thickening. 4. Small sliding hiatal hernia. 06/29/2025: Clinical Indication: Hypoxia CT Scan of the Chest with Contrast: Technique: Contiguous sections were acquired throughout the chest after intravenous administration of 100 cc of Omnipaque 350. Dose reduction technique was used on this scan by utilizing automated exposure control and iterative reconstruction technique. The dose-length product (DLP) was 283.61 mGy-cm. COMPARISON: 06/01/2025 Findings: Multiple shotty/minimally enlarged mediastinal lymph nodes are present along the right paratracheal stripe and AP window region. There is no filling defect in the pulmonary arterial tree to suggest pulmonary embolus. There is no evidence of aortic dissection or aneurysm. No pericardial effusion. There are small bilateral pleural effusions. Bibasilar consolidation with air bronchograms is present, which could reflect atelectasis/pulmonary edema versus pneumonia. There is probable chronic scarring or interstitial change in the right middle lobe. There are patchy areas of consolidation the left upper lobe and right upper lobe, which could reflect additional or new versus pneumonia. There is mild to moderate emphysema.. Images through the upper abdomen reveal no abnormalities. Impression: No evidence of pulmonary embolus, aortic dissection, or aortic aneurysm. Patchy bilateral consolidation, suggestive of pneumonia and possible superimposed bibasilar atelectasis. There is significant worsening in the left upper lobe as compared to prior exam. Otherwise, remaining areas of airspace disease are similar to prior exam in the remainder of the lungs. Pulmonary edema not completely excluded, though felt to be somewhat less likely given the appearance and distribution of findings. Possible chronic scarring or atelectasis in the right middle lobe. Minimal pleural effusions. 05/12/25: EXAMINATION: CTA chest PE protocol DATE: 05/12/2025 14:25 INDICATION: Dyspnea. Elevated d-dimer. TECHNIQUE: Computed tomography (CT) pulmonary angiogram of the chest was performed with 100 mL Omnipaque-350 intravenous contrast. Additional 3D reconstructions utilizing coronal maximum intensity projection (MIP) were performed. Automated exposure control and iterative reconstruction technique were employed. The dose-length product was 310.42 mGy-cm. COMPARISON: 04/26/2025 FINDINGS: No pulmonary embolism. Mild emphysema. Bronchial wall thickening in the bilateral lower lobes with some frothy appearing mucous in the right bronchus intermedius and right lower lobar bronchi consistent with bronchitis. Unchanged small right pleural effusion is been some interval improvement in groundglass opacities and patchy consolidation in the right lower lobe consistent with improving pneumonia. There is unchanged region of peripheral round atelectasis in the posterior left lower lobe with associated architectural distortion and volume loss. Additional unchanged linear discoid atelectasis at the right middle lobe. Heart size is normal. Atherosclerotic coronary artery calcific location. No pericardial effusion. Thoracic aorta is normal in caliber with no dissection. Enlargement of the central pulmonary arteries consistent with pulmonary arterial hypertension. No pathologically enlarged thoracic lymphadenopathy. Moderate- sized sliding-type hiatal hernia. Multiple low-attenuation cysts scattered throughout the liver measuring up to 1.5 cm. There is also a 1.8 cm cyst at the upper pole the right kidney. Mild thoracic spondylosis with bridging osteophytes at multiple levels consistent with diffuse idiopathic skeletal hyperostosis (DISH). IMPRESSION: 1. No pulmonary embolism. 2. Decreasing consolidation in the right lower lobe consistent with improving pneumonia. 3. Unchanged small right pleural effusion. 4. Mild emphysema and enlargement of the central pulmonary arteries consistent with pulmonary arterial hypertension. 5. Moderate-sized sliding-type hiatal hernia. 04/26/2025: EXAMINATION: CTA chest PE protocol DATE: 04/26/2025 13:46 CDT INDICATION: Shortness of breath TECHNIQUE: Computed tomographic angiography (CTA) of the chest was performed with 100 mL Omnipaque-350 intravenous contrast. The dose-length product was 256.22 mGy-cm. Maximum intensity projection 3D-reconstructions of the aorta and other arteries were constructed by the technologist on a separate workstation. Automated exposure control and iterative reconstruction technique were employed. COMPARISON: Chest x-ray dated 04/25/[address] dated 11/20/2024. FINDINGS: Small right pleural effusion. Trace left pleural effusion. There is mediastinal lymphadenopathy. There is right hilar lymphadenopathy. There is atherosclerosis of the aorta and coronary arteries. Small hiatal hernia. Heart size normal. Pulmonary arteries are enlarged, consistent with pulmonary hypertension. Study is technically adequate without evidence for pulmonary embolism. There is patchy bilateral airspace disease of the right upper, right middle and bilateral lower lobes, consistent with multifocal pneumonia. No endobronchial lesions. There is emphysema. No suspicious pulmonary nodules or masses. Mild thoracic spondylosis. No focal lytic or blastic lesions. IMPRESSION: 1. Multifocal airspace disease, consistent with pneumonia. 2: Bilateral pleural effusions, right greater than left. 3: Mediastinal lymphadenopathy, likely reactive. 4.: Pulmonary artery enlargement, consistent with pulmonary hypertension. 5: Emphysema. My read: I have compared this to CT scans from 11/20/2024 and 08/29/2024 and 02/25/2024. Current CT shows no PE, , Small right pleural effusion, worsening consolidation and infiltrates in the right lower lobe compared to 11/20/2024 and 02/25/2024. Compared to CT scan on 02/25/2024 currently there are some areas of improved consolidation in the right lower lobe and some different areas with worsening consolidations in the right lower lobe. There is unchanged consolidation in the posterior left lower lobe with no change compared to 11/20/2024, 08/29/2024 and that have improved from 02/25/2024. Currently there are patchy consolidations in the right middle lobe some which were present on 11/20/2024 and some that are new. There were no infiltrates on 08/29/2024 in the right middle lobe. 01/02/25: Modified barium swallow: Impression: Moderate dysphagia 11/20/24: EXAMINATION:. Recommendations: Regular but easy to chew diet with regular liquids but patient must use chin tuck posture with all eating and drinking to prevent pharyngeal residual and instances of laryngeal penetration and aspiration. He was referral to outpatient speech therapy. 12/14/24: CRP 3.6, ESR 134, CPK 43, Aspergillus Niger IgE 0.31, very low level. Aspergillus Niger antibody negative, Aspergillus flatus antibody negative. Aspergillus fumigatus antibody negative. Rheumatoid factor 12.9, anti CCP antibody less than 16. TERRA screen positive with an anti-DNA antibody 27 (positive greater than 10), Anca screen negative, hypersensitivity pneumonitis panel negative. 01/24/2025: QuantiFERON gold negative. IgE 691 normal less than 114, rheumatoid factor 12.9. IgG 693, IgM 90, IgA 212, all normal. Aldolase 5.0 11/20/2024: CTA chest PE protocol INDICATION: Hypoxia elevated d-dimer COMPARISON: 08/29/2024 and 10/11/2021. FINDINGS: No filling defects within the main or proximal pulmonary arteries. The thoracic aorta is unremarkable. No aneurysmal dilatation or dissection. The heart is of normal size, without pericardial effusion. Panlobular emphysematous disease is identified. Patchy groundglass opacification detected bilaterally. Small bilateral pleural effusions with adjacent compressive atelectasis Multiple subcentimeter areas of decreased attenuation within the liver, unchanged dating back to 10/11/2021. IMPRESSION: No pulmonary embolus. No aneurysmal dilatation or dissection within the thoracic aorta. Small bilateral pleural effusions with adjacent compressive atelectasis. 08/16/2024: Overnight oximetry on 3 L nasal cannula. The report in the computer status overnight oximetry on room air but this is mislabeled as the test was performed on 3 L. Recording duration 8 hours and 39 minutes. Basal saturation 92.1%. High saturation 96%. Low saturation 79%. Time with saturation less than or equal to 88% was 4 minutes and 58 seconds. I will continue oxygen 3 L at night. 06/24/2024: This is a 6 minute walk test. The test was performed and interpreted in accordance with the 2014 ERS/ATS task force guidelines. Of note, patient used to wheeled walker for stability and the testing was performed on his home portable oxygen concentrator at 3 L with pulse dose. Findings: The patient's resting 3 L oxygen saturation measured by pulse oximetry was 95% and heart rate was 80 bpm. Patient ambulated for 137 meters and oxygen saturation remained 91 to 92%. Heart rate at the end of the study was 94 bpm. The patient did not have rest or exertional hypoxemia on 3 L nasal cannula pulse dose with his portable oxygen concentrator. 02/25/24 - CTA chest (ER) - No PE identified. 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 There is patchy consolidation in the right middle and bilateral lower lobes with additional regions of tree-in-bud opacity scattered throughout both lungs consistent with multifocal pneumonia. There is associated bronchial wall thickening and mucous plugging in the bilateral lower lobes. Tiny left pleural effusion. No septal line thickening to suggest pulmonary edema. No pneumothorax. Mild cardiomegaly. Atherosclerotic coronary artery calcifications. No pericardial effusion. 02/25/2024: ABG on 4 L cannula 7.39/35/63 01/15/24 - Home O2 eval - Required 2L/min O2 with ambulation and none at rest. 12/16/23 - PFT The test was performed and results interpreted in accordance with the 2019 and 2005 ATS/ERS Task Force guidelines respectively using the Global Lung Function Initiative-2012 reference equations. Patient demonstrated good effort and cooperation. Reproducibility criteria were met. The quality of the pre [facility] hodilator spirometry maneuver was Grade A and post bronchodilator spirometry maneuver was Grade A. Findings: Spirometry: There is decreased maximal expiratory airflow at all lung volumes with concave expiratory flow tracing. The contour the inspiratory flow tracing is normal. The pre bronchodilator FVC is 3.33 L, 82% predicted. The pre bronchodilator FEV1 is 2.02 L, 68% predicted. The pre bronchodilator FEV1: FVC ratio 61%. The post bronchodilator FVC is 3.41 L, representing a 2% increase. The post bronchodilator FEV1 is 2.09 L, representing a 3% increase. The post bronchodilator FEV1: FVC ratio 61%. Plethysmography: The total lung capacity is 6.43 L, 89% predicted. The functional residual capacity is 4.14 L, 106% predicted. The residual volume is 3.10 L, 115% predicted. The residual volume: Total lung capacity ratio is 48%. Diffusing capacity: The diffusing capacity unadjusted for hemoglobin and carboxyhemoglobin is 9.0, 37% predicted. The diffusing capacity adjusted for alveolar volume is 2.29, 64% predicted. Comparison to previous pulmonary function testing on 01/01/2022 the post bronchodilator FVC has decreased from 4.38 L to 3.41 L. The post bronchodilator FEV1 has decreased from 3.11 L to 2.09 L. the total lung capacity is decreased from 7.39 L to 6.43 L. The functional residual capacity has decreased from 4.95 L to 4.14 L. The residual volume is unchanged from 2.93 L to 3.10 L. The diffusing capacity unadjusted for hemoglobin and carboxyhemoglobin is decreased from 14.9 to 9.0. The diffusing capacity adjusted for alveolar volume decreased from 2.63 to 2.29 Impression: There is a mild obstructive abnormality. There is no significant improvement after inhaling a single dose of albuterol. The increase in residual volume to total lung volume ratio is consistent with hyperinflation from an obstructive abnormality. The diffusing capacity unadjusted for hemoglobin and carboxyhemoglobin is severely decreased and remains mildly decreased when adjusted for alveolar volume. Compared to prior pulmonary function testing on 01/01/2022 there has been a significant decrease in the FVC, FEV1, total lung capacity, functional residual capacity and diffusing capacity with no significant change in the residual volume. 09/16/23 - Home O2 eval - Required 2L/min O2 with ambulation and none at rest. 01/01/22 - Home O2 eval - Patient did not require supplemental oxygen at rest or with exertion. 01/01/22 - PFTs - Mild obstructive abnormality with normal FEV1 without significant improvement after inhaling a single dose of albuterol. Lung volumes normal. The diffusing capacity unadjusted for hemoglobin is moderately decreased and normalizes when adjusted for alveolar volume. 12/18/21 - Overnight oximetry on room air - Time with saturation less than or equal to 88% was 4.0 minutes. Patient does not qualify for supplemental oxygen at night. 10/10/2021 - ABG on 4L NC - 7.44/43/70. 10/20/21 - Chest XR - Persistent patchy bilateral airspace disease with possible improvement in the left lung, compatible with pneumonia. 10/11/2021 - CTA chest - Extensive bilateral pulmonary infiltrates and likely reactive hilar or mediastinal adenopathy. Small right pleural effusion. No evidence of pulmonary embolism. 10/11/2021 - Echo - LV systolic function mildly reduced, EF 45-50%. Grade I diastolic dysfunction. The inferior wall, inferoseptal wall, basal inferolateral wall, and mid inferolateral wall are hypokinetic. Mild LA enlargement. No pulmonary hypertension. Review of Systems Constitutional: Constitutional: Reports no additional constitutional complaints Eyes: Eyes: Reports no additional eye complaints ENT: Reports system reviewed and no additional complaints, except as documented Cardiovascular: Cardiovascular: Reports no additional cardiovascular complaints Respiratory: Respiratory: Reports no additional respiratory complaints Gastrointestinal: Gastrointestinal: Reports no additional gastrointestinal complaints Musculoskeletal: Musculoskeletal: Reports no additional musculoskeletal complaints Neurologic: Reports system reviewed and no additional complaints, except as documented Psychiatric: Psychiatric: Reports no additional psychiatric complaints Endocrine: Endocrine: Reports no additional endocrine complaints Hematologic/Lymphatic: Hematologic/Lymphatic: Reports no additional hematolog ic/lymphatic complaints Allergic/Immunologic: Allergic/Immunologic: Reports no additional allergic/immunologic complaints Exam Const: General: cooperative, healthy appearing and comfortable Orientation/consciousness: oriented to person, oriented to place and oriented to time HENMT: Head: normal to inspection Ears: hearing grossly normal bilaterally Eyes: General: appearance normal, both eyes and all related structures Neck: Neck: normal visual inspection Chest: Chest palpation & inspection: normal inspection of the chest Resp: Effort & Inspection: normal respiratory effort and able to speak in complete sentences Auscultation: crackles, no rales, no rhonchi, no wheezes and diminished lung sounds Other: basilar inspiratory crackles, Right greater than left . No wheezing Cardio: Jugular venous distension: no JVD GI: Inspection: normal to inspection Skin: General skin exam: normal color Neuro: General: oriented to person, oriented to place and oriented to time Extrem: General: normal to inspection Psych: Appearance: grossly normal Objective Data Vital Signs Vital Signs: Vital Signs - 24 hr 08/24/25 13:09 08/24/25 13:31 08/24/25 16:00 Temperature 36.3 C L Pulse Rate 90 88 Respiratory Rate 17 18 Blood Pressure 137/61 Pulse Oximetry 96 Oxygen Delivery Nasal Cannula Oxygen Flow Rate 4 08/24/25 20:00 08/24/25 20:00 08/24/25 20:16 Temperature 37.7 C H Pulse Rate 89 72 Respiratory Rate 18 Blood Pressure 130/67 Pulse Oximetry 97 95 Oxygen Delivery Nasal Cannula Oxygen Flow Rate 2 08/24/25 21:17 08/25/25 00:00 08/25/25 02:10 Temperature 36.9 C Pulse Rate 64 69 68 Respiratory Rate 18 18 16 Blood Pressure 126/56 L Pulse Oximetry 98 Oxygen Delivery Oxygen Flow Rate 08/25/25 02:15 08/25/25 02:20 08/25/25 04:00 Temperature 36.5 C Pulse Rate 68 70 73 Respiratory Rate 16 16 18 Blood Pressure 124/61 Pulse Oximetry 97 91 Oxygen Delivery Nasal Cannula Oxygen Flow Rate 1 08/25/25 07:20 08/25/25 10:29 Temperature 36.2 C L Pulse Rate 70 85 Respiratory Rate 18 18 Blood Pressure 135/60 Pulse Oximetry 97 Oxygen Delivery Oxygen Flow Rate Intake/Output Intake/Output: Intake & Output 08/22/25 08/23/25 08/24/25 08/25/25 23:59 23:59 23:59 23:59 Intake Total 2701 812 7283 100 Output Total 30 700 1850 825 Balance 970 120 670 -725 Meds/Results Medications: Active Medications Generic Name Dose Route Start Last Admin Trade Name Freq PRN Reason Stop Dose Admin Acetaminophen 650 mg 08/22/25 23:22 08/24/25 20:15 Acetaminophen 325 Mg Tablet PO 650 mg Q4H PRN Administration Mild Pain (1-3) or Fever Acetylcysteine 200 mg 08/23/25 14:00 08/25/25 07:18 Acetylcysteine 20% Inhal Soln 800 Mg/4 Ml Vial INHALATION 200 mg Q6HRT GIOVANNY Administration Albuterol/Ipratropium 3 ml 08/23/25 08:00 08/25/25 07:17 Ipratropium 0.5 Mg/Albuterol Sulfate 2.5 Mg Ampul.Neb 3 Ml INHALATION 3 ml Q6HRT GIOVANNY Administration Aspirin 81 mg 08/23/25 09:00 08/25/25 09:33 Aspirin 81 Mg Enteric Tablet PO 81 mg DAILY GIOVANNY Administration Azithromycin 250 mg 08/24/25 09:00 10 09:33 Azithromycin 250 Mg Tablet PO 250 mg DAILY GIOVANNY Administration Baclofen 10 mg 08/24/25 09:45 Baclofen 10 Mg Tablet PO Q8H PRN Muscle Spasm Bisacodyl 10 mg 08/23/25 04:05 Bisacodyl 10 Mg Suppository RECTAL DAILY PRN Constipation Bupropion HCl 150 mg 08/23/25 09:00 08/25/25 09:34 Bupropion Hcl Sr (12 Hr) 150 Mg Tab PO 150 mg Q12HR GIOVANNY Administration Ethambutol HCl 1,200 mg 08/23/25 09:00 08/25/25 09:34 Ethambutol Hcl 400 Mg Tablet PO 1,200 mg DAILY GIOVANNY Administration Fenofibrate 145 mg 08/23/25 09:00 08/25/25 09:33 Fenofibrate 145 Mg Tablet PO 145 mg QAM GIOVANNY Administration Furosemide 20 mg 08/25/25 10:25 Furosemide 20 Mg Tablet PO DAILY GIOVANNY Guaifenesin 1,200 mg 08/23/25 09:00 08/25/25 09:35 Guaifenesin 12 Hr 600 Mg Tabcr PO 1,200 mg Q12HR GIOVANNY Administration Meropenem 1 gm/ Sodium 100 mls @ 200 mls/hr 08/24/25 14:00 08/25/25 05:31 Chloride IVPB 08/27/25 23:59 Infused Q8HR GIOVANNY Infusion Metoprolol Tartrate 50 mg 08/23/25 21:00 08/24/25 20:16 Metoprolol Tartrate 50 Mg Tab PO 50 mg HS GIOVANNY Administration Morphine Sulfate 30 mg 08/24/25 09:45 08/25/25 06:15 Morphine Sulfate (*Crx) 30 Mg Tabcr PO 30 mg Q12H PRN Administration Pain Ondansetron HCl 4 mg 08/22/25 23:22 Ondansetron Inj 4 Mg/2 Ml Vial IV PUSH Q4H PRN Nausea Pantoprazole Sodium 40 mg 08/23/25 09:00 08/25/25 09:35 Pantoprazole 40 Mg Tablet PO 40 mg QAM GIOVANNY Administration Perflutren Lipid Microsphere 0 ml 08/23/25 04:03 Perflutren Lipid Microspheres 1.5 Ml Vial Diluted To 10 Ml Total Volume IV PUSH 08/26/25 04:03 ONCE PRN adequate visualization Protocol Polyethylene Glycol 17 gm 08/24/25 09:37 08/24/25 10:14 Polyethylene Glycol 3350 17 Gm Powd.Pack PO 17 gm QAM PRN Administration Constipation Rifampin 300 mg 08/23/25 14:00 08/25/25 09:33 Rifampin 300 Mg Capsule PO 300 mg Q12HR GIOVANNY Administration Senna/Docusate Sodium 1 tab 08/25/25 10:25 Senna/Docusate Sodium Tablet PO BID GIOVANNY Sertraline HCl 50 mg 08/23/25 09:00 08/25/25 09:34 Sertraline Hcl 50 Mg Tablet PO 50 mg DAILY GIOVANNY Administration Tamsulosin HCl 0.4 mg 08/23/25 09:00 08/25/25 09:35 Tamsulosin Hcl 0.4 Mg Capsule PO 0.4 mg BID GIOVANNY Administration Radiology Results: ITS Impressions Chest X-Ray 08/22/25 20:48 IMPRESSION: 1. No significant change in a small right pleural effusion or of linear and reticular opacities in the right mid and bilateral lower lung zones which could represent atelectasis/scarring and/or pneumonia. Head CT 08/23/25 07:34 IMPRESSION: 1. Stable moderate nonspecific cerebral white matter disease, which likely represents chronic small vessel ischemic disease. Chest CT 08/23/25 09:14 IMPRESSION: 1. Moderate emphysema. 2. Diffuse lung disease with a peripheral and lower lung predominance with worsening in posterior segment right upper lobe, likely a combination of rounded atelectasis and pneumonia. 3. Chronic small right pleural effusion. Chronic bilateral pleural thickening. 4. Small sliding hiatal hernia. Labs Labs: Laboratory Results - last 24 hr 08/23/25 08/25/25 11:27 05:53 WBC 8.3 RBC 2.73 L Hgb 7.3 L Hct 23.8 L MCV 87.2 MCH 26.7 MCHC 30.7 L RDW 16.9 H Plt Count 231 MPV 11.4 H Immature Gran % (Auto) 1.1 H Neut % (Auto) 77.4 H Lymph % (Auto) 7.9 L Lewis % (Auto) 12.7 H Eos % (Auto) 0.7 Baso % (Auto) 0.2 Lymph # (Auto) 0.65 L [place] # (Auto) 1.1 H Eos # (Auto) 0.1 Baso # (Auto) 0.0 Abs Immat Gran (auto) 0.09 H Absolute Neuts (auto) 6.4 Absolute Nucleated RBC 0.000 Nucleated RBC % 0.0 Sodium 130 L Potassium 3.7 Chloride 93 L Carbon Dioxide 31 H Anion Gap 6 BUN 23 H Creatinine 1.01 Estim Creat Clear Calc 50 Estimated GFR > 60 Glucose 88 Calcium 8.9 Total Bilirubin 3.3 H AST 27 ALT 14 Alkaline Phosphatase 119 C-Reactive Protein 22.0 H NT-Pro-B Natriuret Pep 2600 H Total Protein 5.9 L Albumin 2.8 L Procalcitonin 0.2 M.pneumoniae IgM Titer <770
--- NOTE | 2025-08-25 12:37 | P.PNINF_ITS ---
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 All questions answered Patient was seen via video telehealth consultation with the assistance of staff. Chart, data, and patient independently reviewed. Patient was located at [facility] while I was located in my [place] office. Received verbal c onsent from patient. Subjective Date/time seen: 08/25/25 12:37 Interval history: Patient afebrile. Breathing is back at baseline Review of Systems Review of Systems: All systems reviewed & are unremarkable except as noted in HPI and below Exam Narrative: Gen: NAD Pulm: no conversational dyspnea, minimal tachypnea Abd: nondistended Ext: no c/c/e Derm: no rash Objective Data Vital Signs Vital Signs: Vital Signs - 24 hr 08/24/25 13:09 08/24/25 13:31 08/24/25 16:00 Temperature 97.4 F L Pulse Rate 90 88 Respiratory Rate 17 18 Blood Pressure 137/61 Pulse Oximetry 96 Oxygen Delivery Nasal Cannula Oxygen Flow Rate 4 08/24/25 20:00 08/24/25 20:00 08/24/25 20:16 Temperature 99.8 F H Pulse Rate 89 72 Respiratory Rate 18 Blood Pressure 130/67 Pulse Oximetry 97 95 Oxygen Delivery Nasal Cannula Oxygen Flow Rate 2 08/24/25 21:17 08/25/25 00:00 08/25/25 02:10 Temperature 98.4 F Pulse Rate 64 69 68 Respiratory Rate 18 18 16 Blood Pressure 126/56 L Pulse Oximetry 98 Oxygen Delivery Oxygen Flow Rate 08/25/25 02:15 10/03/25 02:20 08/25/25 04:00 Temperature 97.7 F Pulse Rate 68 70 73 Respiratory Rate 16 16 18 Blood Pressure 124/61 Pulse Oximetry 97 91 Oxygen Delivery Nasal Cannula Oxygen Flow Rate 1 08/25/25 07:20 08/25/25 10:29 Temperature 97.1 F L Pulse Rate 70 85 Respiratory Rate 18 18 Blood Pressure 135/60 Pulse Oximetry 97 Oxygen Delivery Oxygen Flow Rate Intake/Output Intake/Output: Intake & Output 08/22/25 08/23/25 08/24/25 08/25/25 23:59 23:59 23:59 23:59 Intake Total 3785 068 4274 100 Output Total 30 700 1850 825 Balance 970 120 670 -725 Meds/Results Medications: Active Medications Generic Name Dose Route Start Last Admin Trade Name Freq PRN Reason Stop Dose Admin Acetaminophen 650 mg 08/22/25 23:22 08/24/25 20:15 Acetaminophen 325 Mg Tablet PO 650 mg Q4H PRN Administration Mild Pain (1-3) or Fever Acetylcysteine 200 mg 08/23/25 14:00 08/25/25 07:18 Acetylcysteine 20% Inhal Soln 800 Mg/4 Ml Vial INHALATION 200 mg Q6HRT GIOVANNY Administration Albuterol/Ipratropium 3 ml 08/23/25 08:00 08/25/25 07:17 Ipratropium 0.5 Mg/Albuterol Sulfate 2.5 Mg Ampul.Neb 3 Ml INHALATION 3 ml Q6HRT GIOVANNY Administration Aspirin 81 mg 08/23/25 09:00 08/25/25 09:33 Aspirin 81 Mg Enteric Tablet PO 81 mg DAILY GIOVANNY Administration Azithromycin 250 mg 08/24/25 09:00 08/25/25 09:33 Azithromycin 250 Mg Tablet PO 250 mg DAILY GIOVANNY Administration Baclofen 10 mg 08/24/25 09:45 Baclofen 10 Mg Tablet PO Q8H PRN Muscle Spasm Bisacodyl 10 mg 08/23/25 04:05 Bisacodyl 10 Mg Suppository RECTAL DAILY PRN Constipation Bupropion HCl 150 mg 08/23/25 09:00 08/25/25 09:34 Bupropion Hcl Sr (12 Hr) 150 Mg Tab PO 150 mg Q12HR GIOVANNY Administration Ethambutol HCl 1,200 mg 08/23/25 09:00 08/25/25 09:34 Ethambutol Hcl 400 Mg Tablet PO 1,200 mg DAILY GIOVANNY Administration Fenofibrate 145 mg 08/23/25 09:00 08/25/25 09:33 Fenofibrate 145 Mg Tablet PO 145 mg QAM GIOVANNY Administration Furosemide 20 mg 08/25/25 11:25 Furosemide Inj 40 Mg/4 Ml Vial IV PUSH BID GIOVANNY Guaifenesin 1,200 mg 08/23/25 09:00 08/25/25 09:35 Guaifenesin 12 Hr 600 Mg Tabcr PO 1,200 mg Q12HR GIOVANNY Administration Meropenem 1 gm/ Sodium 100 mls @ 200 mls/hr 08/24/25 14:00 08/25/25 05:31 Chloride IVPB 08/27/25 23:59 Infused Q8HR GIOVANNY Infusion Metoprolol Tartrate 50 mg 08/23/25 21:00 08/24/25 20:16 Metoprolol Tartrate 50 Mg Tab PO 50 mg HS GIOVANNY Administration Morphine Sulfate 30 mg 08/24/25 09:45 08/25/25 06:15 Morphine Sulfate (*Crx) 30 Mg Tabcr PO 30 mg Q12H PRN Administration Pain Ondansetron HCl 4 mg 08/22/25 23:22 Ondansetron Inj 4 Mg/2 Ml Vial IV PUSH Q4H PRN Nausea Pantoprazole Sodium 40 mg 08/23/25 09:00 08/25/25 09:35 Pantoprazole 40 Mg Tablet PO 40 mg QAM GIOVANNY Administration Perflutren Lipid Microsphere 0 ml 08/23/25 04:03 Perflutren Lipid Microspheres 1.5 Ml Vial Diluted To 10 Ml Total Volume IV PUSH 08/26/25 04:03 ONCE PRN adequate visualization Protocol Polyethylene Glycol 17 gm 08/24/25 09:37 08/24/25 10:14 Polyethylene Glycol 3350 17 Gm Powd.Pack PO 17 gm QAM PRN Administration Constipation Rifampin 300 mg 08/23/25 14:00 08/25/25 09:33 Rifampin 300 Mg Capsule PO 300 mg Q12HR GIOVANNY Administration Senna/Docusate Sodium 1 tab 08/25/25 10:25 Senna/Docusate Sodium Tablet PO BID GIOVANNY Sertraline HCl 50 mg 08/23/25 09:00 08/25/25 09:34 Sertraline Hcl 50 Mg Tablet PO 50 mg DAILY GIOVANNY Administration Tamsulosin HCl 0.4 mg 08/23/25 09:00 08/25/25 09:35 Tamsulosin Hcl 0.4 Mg Capsule PO 0.4 mg BID GIOVANNY Administration Radiology Results: ITS Impressions Head CT 08/23/25 07:34 IMPRESSION: 1. Stable moderate nonspecific cerebral white matter disease, which likely represents chronic small vessel ischemic disease. Chest CT 08/23/25 09:14 IMPRESSION: 1. Moderate emphysema. 2. Diffuse lung disease with a peripheral and lower lung predominance with worsening in posterior segment right upper lobe, likely a combination of rounded atelectasis and pneumonia. 3. Chronic small right pleural effusion. Chronic bilateral pleural thickening. 4. Small sliding hiatal hernia. Chest X-Ray 08/25/25 12:27 Impression: Bilateral pneumonia Labs Labs: Laboratory Results - last 24 hr 08/23/25 08/25/25 11:27 05:53 WBC 8.3 RBC 2.73 L Hgb 7.3 L Hct 23.8 L MCV 87.2 MCH 26.7 MCHC 30.7 L RDW 16.9 H Plt Count 231 MPV 11.4 H Immature Gran % (Auto) 1.1 H Neut % (Auto) 77.4 H Lymph % (Auto) 7.9 L [place] % (Auto) 12.7 H Eos % (Auto) 0.7 Baso % (Auto) 0.2 Lymph # (Auto) 0.65 L [place] # (Auto) 1.1 H Eos # (Auto) 0.1 Baso # (Auto) 0.0 Abs Immat Gran (auto) 0.09 H Absolute Neuts (auto) 6.4 Absolute Nucleated RBC 0.000 Nucleated RBC % 0.0 Sodium 130 L Potassium 3.7 Chloride 93 L Carbon Dioxide 31 H Anion Gap 6 BUN 23 H Creatinine 1.01 Estim Creat Clear Calc 50 Estimated GFR > 60 Glucose 88 Calcium 8.9 Total Bilirubin 3.3 H AST 27 ALT 14 Alkaline Phosphatase 119 C-Reactive Protein 22.0 H NT-Pro-B Natriuret Pep 2600 H Total Protein 5.9 L Albumin 2.8 L Procalcitonin 0.2 M.pneumoniae IgM Titer <770
[2025-08-25] MEDS: FUROSEMIDE INJ 40 MG/4 ML VIAL 20 MG IV PUSH ×2 (12:48→17:52)
[2025-08-25] MEDS: SENNA/DOCUSATE SODIUM TABLET 1 TAB PO ×2 (12:48→17:53)
[2025-08-25] MEDS: BACLOFEN 10 MG TABLET PO (21:17)
[2025-08-25] MEDS: METOPROLOL TARTRATE 50 MG TAB PO (21:17)
[2025-08-26] VITALS (15 sets, daily range): BP systolic 130–150; BP diastolic 54–63; PULSE 70–96; RESP 16–18; TEMP 36.2–36.8; O2SAT 92–100
[2025-08-26] MEDS: IPRATROPIUM 0.5 MG/ALBUTEROL SULFATE 2.5 MG AMPUL.NEB 3 ML INHALATION ×4 (01:24→19:58)
[2025-08-26] MEDS: ACETYLCYSTEINE 20% INHAL SOLN 800 MG/4 ML VIAL 200 MG INHALATION ×4 (01:27→19:58)
[2025-08-26] MEDS: MEROPENEM 1 GM in SODIUM CHLORIDE 0.9% IV 100 ML 200 ML IVPB ×3 (05:15→22:07)
[2025-08-26 06:13] LABS: Hematocrit 24.6 % (42.0-52.0); Hemoglobin 7.7 g/dL (14.0-18.0); Immature Granulocyte Percent A 1.7 % (0-0.5); Lymphocytes Absolute Auto 0.69 K/mm3 (0.9-3.2); Mean Corpuscular HGB Conc 31.3 g/dl (32-36); Mean Corpuscular Hemoglobin 27.0 pg (26-34); Mean Corpuscular Volume 86.3 fl (80-100); Nucleated Red Blood Cells Absolute Auto 0.000 K/mm3 (0.0-0.012); Nucleated Red Blood Cells Perc 0.0 % (0.0-0.2); Platelet Count Result 292 k/mm3 (150-375); Red Blood Count 2.85 M/mm3 (4.6-6.20); White Blood Count 7.2 K/mm3 (4.5-10.0)
[2025-08-26 06:46] LABS: Alanine Aminotransferase 13 U/L (6-50); Albumin Level 2.8 g/dL (3.5-5.1); Alkaline Phosphatase 115 U/L (38-126); Anion Gap 5 mmol/L (4-12); Aspartate Amino Transferase 26 U/L (17-59); Bilirubin,Total 2.5 mg/dL (0.2-1.3); Blood Urea Nitrogen 18 mg/dL (9-20); Calcium 8.6 mg/dL (8.4-10.2); Carbon Dioxide 34 mmol/L (22-30); Chloride 91 mmol/L (98-107); Estimated CRCL calculation 57 ml/min; Estimated Glomerular Filt Rate > 60; Glucose 111 mg/dL (65-110); Potassium 3.5 mmol/L (3.4-5.0); Sodium 130 mmol/L (137-145); Total Protein 5.7 g/dL (6.3-8.2)
[2025-08-26] MEDS: ACETAMINOPHEN 325 MG TABLET 650 MG PO (07:01)
--- NOTE | 2025-08-26 07:40 | P.PNIM_ITS ---
Progress Note: A&P Assessment and Plan (1) Pneumonia: Qualifiers: Laterality: right Lung location: unspecified part of lung Pneumonia type: due to unspecified organism Qualified Code(s): J18.9 - Pneumonia, unspecified organism Code(s): J18.9 - Pneumonia, unspecified organism Status: Acute Assessment and Plan: -multiple admissions for recurrent pneumonia. Has history of SNEHA infection. - admit WBC 11, afebrile - CT Chest with moderate emphysema, diffuse lung disease with a peripheral and lower lung predominance with worsening in posterior segment RUL, chronic small right pleural effusion and bilateral pleural thickening - blood cultures NGTD - pulm consulted. Discussed case with Dr. Gottlieb who felt changes mostly chronic or related to mucus plugging, less likely acute bacterial process. - ID consulted. Stopped cipro, started Merrem x 5 days, stop date 08/27. Continue SNEHA treatment with daily azithromycin, ethambutol, rifampin. -sputum cultures pending. (2) Combined systolic and diastolic congestive heart failure: Qualifiers: Heart failure chronicity: acute on chronic Qualified Code(s): I50.43 - Acute on chronic combined systolic (congestive) and diastolic (congestive) heart failure Code(s): I50.40 - Unspecified combined systolic (congestive) and diastolic (congestive) heart failure Status: Acute Assessment and Plan: - echo 2023 with EF 49%, G1 DD - suspect component of acute exacerbation with pleural effusions, elevate BNP, crackles - received IV lasix x2, transitioned to PO lasix 20 mg daily (3) AMS (altered mental status): Code(s): R41.82 - Altered mental status, unspecified Status: Acute Assessment and Plan: - presented alert and oriented x1 - CT head with no acute process - suspect infectious in setting of UTI and possible pneumonia - continue treatment of bacterial processes - monitor mental status - now back to baseline (4) COPD (chronic obstructive pulmonary disease): Code(s): J44.9 - Chronic obstructive pulmonary disease, unspecified Status: Acute Assessment and Plan: - not in acute exacerbation -continue Mucinex and Duonebs (5) Chronic hypoxic respiratory failure, on home oxygen therapy: Code(s): J96.11 - Chronic respiratory failure with hypoxia; Z99.81 - Dependence on supplemental oxygen Status: Acute Assessment and Plan: -patient is chronically on oxygen at 4 L per nasal cannula. - currently weaned to 1-2L NC (6) Depression: Code(s): F32.A - Depression, unspecified Status: Acute Assessment and Plan: -continue with bupropion -trazodone has been on hold. (7) Anxiety disorder, unspecified: Code(s): F41.9 - Anxiety disorder, unspecified Status: Acute Assessment and Plan: -continue bupropion, Zoloft (8) HTN (hypertension): Qualifiers: Hypertension type: primary hypertension Qualified Code(s): I10 - Essential (primary) hypertension Code(s): I10 - Essential (primary) hypertension Status: Chronic Assessment and Plan: - BP stable - continue home meds (9) Hyponatremia: Code(s): E87.1 - Hypo-osmolality and hyponatremia Status: Acute Assessment and Plan: - chornically low -Na 130, near baseline. Monitor sodium closely with diuresis. (10) SANDI (acute kidney injury): Code(s): N17.9 - Acute kidney failure, unspecified Status: Acute Assessment and Plan: -Cr 1.39 on admit. Received IV lasix and fluids in ED. Cr improved this AM. 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 Breathing feels at baseline. Denies acute complaints. Review of Systems Review of Systems: All systems reviewed & are unremarkable except as noted in HPI and below Exam Narrative: General: NAD. Appears chronically debilitated. Eyes: EOMI ENT: neck supple Cardiovascular: Regular rate and rhythm Respiratory: scattered rhonchi bilaterally, respirations even and unlabored on 2L NC Gastrointestinal: Soft, non tender Genitourinary: no suprapubic tenderness Musculoskeletal: No edema Skin: warm, dry Neuro: Alert and oriented x4 Psych: Mood appropriate Objective Data Vital Signs Vital Signs: Vital Signs - 24 hr 08/25/25 09:45 08/25/25 10:29 08/25/25 13:35 Temperature 97.1 F L Pulse Rate 85 74 Respiratory Rate 18 18 Blood Pressure 135/60 Pulse Oximetry 97 97 Oxygen Delivery Nasal Cannula Oxygen Flow Rate 2 08/25/25 17:50 08/25/25 19:46 08/25/25 19:47 Temperature 98.4 F Pulse Rate 99 72 Respiratory Rate 24 H 18 Blood Pressure 147/64 H Pulse Oximetry 99 98 Oxygen Delivery Nasal Cannula Oxygen Flow Rate 2 08/25/25 19:56 08/25/25 21:14 08/25/25 21:54 Temperature 98.2 F Pulse Rate 74 102 H 89 Respiratory Rate 18 16 Blood Pressure 116/59 L 130/64 Pulse Oximetry 97 96 Oxygen Delivery Oxygen Flow Rate 08/26/25 00:00 08/26/25 01:27 08/26/25 01:37 Temperature 98.2 F Pulse Rate 79 70 72 Respiratory Rate 16 18 18 Blood Pressure 137/58 L Pulse Oximetry 94 Oxygen Delivery Oxygen Flow Rate 08/26/25 04:00 Temperature 97.9 F Pulse Rate 79 Respiratory Rate 16 Blood Pressure 150/61 H Pulse Oximetry 95 Oxygen Delivery Oxygen Flow Rate Intake/Output Intake/Output: Intake & Output 08/23/25 08/24/25 08/25/25 08/26/25 23:59 23:59 23:59 23:59 Intake Total 820 2520 600 150 Output Total 700 1850 2100 300 Balance 120 670 -1500 -150 Meds/Results Medications: Active Medications Generic Name Dose Route Start Last Admin Trade Name Freq PRN Reason Stop Dose Admin Acetaminophen 650 mg 08/22/25 23:22 08/26/25 07:01 Acetaminophen 325 Mg Tablet PO 650 mg Q4H PRN Administration Mild Pain (1-3) or Fever Acetylcysteine 200 mg 08/23/25 14:00 08/26/25 01:27 Acetylcysteine 20% Inhal Soln 800 Mg/4 Ml Vial INHALATION 200 mg Q6HRT GIOVANNY Administration Albuterol/Ipratropium 3 ml 08/23/25 08:00 08/26/25 01:24 Ipratropium 0.5 Mg/Albuterol Sulfate 2.5 Mg Ampul.Neb 3 Ml INHALATION 3 ml Q6HRT GIOVANNY Administration Aspirin 81 mg 08/23/25 09:00 08/25/25 09:33 Aspirin 81 Mg Enteric Tablet PO 81 mg DAILY GIOVANNY Administration Azithromycin 250 mg 08/24/25 09:00 08/25/25 09:33 Azithromycin 250 Mg Tablet PO 250 mg DAILY GIOVANNY Administration Baclofen 10 mg 08/24/25 09:45 08/25/25 21:17 Baclofen 10 Mg Tablet PO 10 mg Q8H PRN Administration Muscle Spasm Bisacodyl 10 mg 08/23/25 04:05 Bisacodyl 10 Mg Suppository RECTAL DAILY PRN Constipation Bupropion HCl 150 mg 08/23/25 09:00 08/25/25 21:18 Bupropion Hcl Sr (12 Hr) 150 Mg Tab PO 150 mg Q12HR GIOVANNY Administration Ethambutol HCl 1,200 mg 08/23/25 09:00 08/25/25 09:34 Ethambutol Hcl 400 Mg Tablet PO 1,200 mg DAILY GIOVANNY Administration Fenofibrate 145 mg 08/23/25 09:00 08/25/25 09:33 Fenofibrate 145 Mg Tablet PO 145 mg QAM GIOVANNY Administration Furosemide 20 mg 08/25/25 11:25 08/25/25 17:52 Furosemide Inj 40 Mg/4 Ml Vial IV PUSH 20 mg BID GIOVANNY Administration Guaifenesin 1,200 mg 08/23/25 09:00 08/25/25 21:17 Guaifenesin 12 Hr 600 Mg Tabcr PO 1,200 mg Q12HR GIOVANNY Administration Meropenem 1 gm/ Sodium 100 mls @ 200 mls/hr 08/24/25 14:00 08/26/25 05:15 Chloride IVPB 08/27/25 23:59 200 mls/hr Q8HR GIOVANNY Administration Metoprolol Tartrate 50 mg 08/23/25 21:00 08/25/25 21:17 Metoprolol Tartrate 50 Mg Tab PO 50 mg HS GIOVANNY Administration Morphine Sulfate 30 mg 08/24/25 09:45 08/25/25 06:15 Morphine Sulfate (*Crx) 30 Mg Tabcr PO 30 mg Q12H PRN Administration Pain Ondansetron HCl 4 mg 08/22/25 23:22 Ondansetron Inj 4 Mg/2 Ml Vial IV PUSH Q4H PRN Nausea Pantoprazole Sodium 40 mg 08/23/25 09:00 08/25/25 09:35 Pantoprazole 40 Mg Tablet PO 40 mg QAM GIOVANNY Administration Polyethylene Glycol 17 gm 10/02/25 09:37 08/24/25 10:14 Polyethylene Glycol 3350 17 Gm Powd.Pack PO 17 gm QAM PRN Administration Constipation Rifampin 300 mg 08/23/25 14:00 08/25/25 21:17 Rifampin 300 Mg Capsule PO 300 mg Q12HR GIOVANNY Administration Senna/Docusate Sodium 1 tab 08/25/25 10:25 08/25/25 17:53 Senna/Docusate Sodium Tablet PO 1 tab BID GIOVANNY Administration Sertraline HCl 50 mg 08/23/25 09:00 08/25/25 09:34 Sertraline Hcl 50 Mg Tablet PO 50 mg DAILY GIOVANNY Administration Tamsulosin HCl 0.4 mg 08/23/25 09:00 08/25/25 17:53 Tamsulosin Hcl 0.4 Mg Capsule PO 0.4 mg BID GIOVANNY Administration Radiology Results: ITS Impressions Head CT 08/23/25 07:34 IMPRESSION: 1. Stable moderate nonspecific cerebral white matter disease, which likely represents chronic small vessel ischemic disease. Chest CT 08/23/25 09:14 IMPRESSION: 1. Moderate emphysema. 2. Diffuse lung disease with a peripheral and lower lung predominance with worsening in posterior segment right upper lobe, likely a combination of rounded atelectasis and pneumonia. 3. Chronic small right pleural effusion. Chronic bilateral pleural thickening. 4. Small sliding hiatal hernia. Chest X-Ray 08/25/25 12:27 Impression: Bilateral pneumonia Labs Labs: Laboratory Results - last 24 hr 08/24/25 08/25/25 08/25/25 10:05 05:53 19:20 WBC RBC Hgb Hct MCV MCH MCHC RDW Plt Count MPV Immature Gran % (Auto) Neut % (Auto) Lymph % (Auto) [place] % (Auto) Eos % (Auto) Baso % (Auto) Lymph # (Auto) [place] # (Auto) Eos # (Auto) Baso # (Auto) Abs Immat Gran (auto) Absolute Neuts (auto) Absolute Nucleated RBC Nucleated RBC % Sodium 130 L Potassium 3.7 Chloride 93 L Carbon Dioxide 31 H Anion Gap 6 BUN 23 H Creatinine 1.01 Estim Creat Clear Calc 50 Estimated GFR > 60 Glucose 88 Lactic Acid 1.0 Calcium 8.9 Total Bilirubin 3.3 H AST 27 ALT 14 Alkaline Phosphatase 119 C-Reactive Protein 22.0 H NT-Pro-B Natriuret Pep 2600 H Total Protein 5.9 L Albumin 2.8 L Procalcitonin 0.2 Chlamy pneumoniae PCR Not detected Adenovirus (PCR) Not detected B. pertussis DNA (PCR) Not detected B.parapertussis DNA PCR Not detected Coronavirus OC43 (PCR) Not detected Coronavirus HKU1 (PCR) Not detected Coronavirus 229E (PCR) Not detected Coronavirus NL63 (PCR) Not detected Human Metapneumovir PCR Not detected Influenza A (H1) PCR Not detected Influ A (H1/09) PCR Not detected Influenza A (H3) PCR Not detected Influenza Type A (PCR) Not detected Influenza Type B (PCR) Not detected M. pneumoniae (PCR) Not detected Parainfluenza 1 (PCR) Not detected Parainfluenza 2 (PCR) Not detected Parainfluenza 3 (PCR) Not detected Parainfluenza 4 (PCR) Not detected RSV (PCR) Not detected Entero/Rhino (PCR) Not detected SARS-CoV-2 (PCR) Not detected 08/26/25 05:37 WBC 7.2 RBC 2.85 L Hgb 7.7 L Hct 24.6 L MCV 86.3 MCH 27.0 MCHC 31.3 L RDW 16.7 H Plt Count 292 MPV 11.3 H Immature Gran % (Auto) 1.7 H Neut % (Auto) 75.9 H Lymph % (Auto) 9.5 L [place] % (Auto) 11.6 H Eos % (Auto) 1.0 Baso % (Auto) 0.3 Lymph # (Auto) 0.69 L [place] # (Auto) 0.8 H Eos # (Auto) 0.1 Baso # (Auto) 0.0 Abs Immat Gran (auto) 0.12 H Absolute Neuts (auto) 5.5 Absolute Nucleated RBC 0.000 Nucleated RBC % 0.0 Sodium 130 L Potassium 3.5 Chloride 91 L Carbon Dioxide 34 H Anion Gap 5 BUN 18 Creatinine 0.85 Estim Creat Clear Calc 57 Estimated GFR > 60 Glucose 111 H Lactic Acid Calcium 8.6 Total Bilirubin 2.5 H AST 26 ALT 13 Alkaline Phosphatase 115 C-Reactive Protein NT-Pro-B Natriuret Pep Total Protein 5.7 L Albumin 2.8 L Procalcitonin Chlamy pneumoniae PCR Adenovirus (PCR) B. pertussis DNA (PCR) B.parapertussis DNA PCR Coronavirus OC43 (PCR) Coronavirus HKU1 (PCR) Coronavirus 229E (PCR) Coronavirus NL63 (PCR) Human Metapneumovir PCR Influenza A (H1) PCR Influ A (H1/09) PCR Influenza A (H3) PCR Influenza Type A (PCR) Influenza Type B (PCR) M. pneumoniae (PCR) Parainfluenza 1 (PCR) Parainfluenza 2 (PCR) Parainfluenza 3 (PCR) Parainfluenza 4 (PCR) RSV (PCR) Entero/Rhino (PCR) SARS-CoV-2 (PCR) Quality VTE Prophylaxis VTE prophylaxis: mechanical ordered
[2025-08-26] MEDS: SENNA/DOCUSATE SODIUM TABLET 1 TAB PO ×2 (10:42→18:33)
[2025-08-26] MEDS: ASPIRIN 81 MG ENTERIC TABLET PO (10:42)
[2025-08-26] MEDS: ETHAMBUTOL HCL 400 MG TABLET 1200 MG PO (10:42)
[2025-08-26] MEDS: TAMSULOSIN HCL 0.4 MG CAPSULE PO ×2 (10:42→18:33)
[2025-08-26] MEDS: guaiFENesin 12 HR 600 MG TABCR 1200 MG PO ×2 (10:42→20:32)
[2025-08-26] MEDS: buPROPion HCL SR (12 HR) 150 MG TAB PO ×2 (10:42→20:32)
[2025-08-26] MEDS: SERTRALINE HCL 50 MG TABLET PO (10:43)
[2025-08-26] MEDS: FENOFIBRATE 145 MG TABLET PO (10:43)
[2025-08-26] MEDS: PANTOPRAZOLE 40 MG TABLET PO (10:43)
[2025-08-26] MEDS: AZITHROMYCIN 250 MG TABLET PO (10:43)
[2025-08-26] MEDS: MORPHINE SULFATE (*CRX) 30 MG TABCR PO (10:51)
[2025-08-26] MEDS: FUROSEMIDE 20 MG TABLET PO (11:13)
[2025-08-26] MEDS: LORazepam (*CRX) 0.5 MG TABLET PO (13:28)
[2025-08-26] MEDS: BACLOFEN 10 MG TABLET PO (20:32)
[2025-08-26] MEDS: METOPROLOL TARTRATE 50 MG TAB PO (20:32)
[2025-08-27] VITALS (12 sets, daily range): BP systolic 122–167; BP diastolic 51–64; PULSE 65–103; RESP 16–20; TEMP 35.8–36.8; O2SAT 94–100
[2025-08-27] MEDS: BACLOFEN 10 MG TABLET PO ×2 (04:37→20:42)
[2025-08-27] MEDS: ACETAMINOPHEN 325 MG TABLET 650 MG PO (04:37)
[2025-08-27] MEDS: MEROPENEM 1 GM in SODIUM CHLORIDE 0.9% IV 100 ML 200 ML IVPB ×3 (05:29→21:01)
--- NOTE | 2025-08-27 07:30 | P.PNIM_ITS ---
Progress Note: A&P Assessment and Plan (1) Pneumonia: Qualifiers: Laterality: right Lung location: unspecified part of lung Pneumonia type: due to unspecified organism Qualified Code(s): J18.9 - Pneumonia, unspecified organism Code(s): J18.9 - Pneumonia, unspecified organism Status: Acute Assessment and Plan: -multiple admissions for recurrent pneumonia. Has history of SNEHA infection. - admit WBC 11, afebrile - CT Chest with moderate emphysema, diffuse lung disease with a peripheral and lower lung predominance with worsening in posterior segment RUL, chronic small right pleural effusion and bilateral pleural thickening - blood cultures NGTD - pulm consulted. Discussed case with Dr. Gottlieb who felt changes mostly chronic or related to mucus plugging, less likely acute bacterial process. - ID consulted. Stopped cipro, started Merrem x 5 days, stop date 08/27. Continue SNEHA treatment with daily azithromycin, ethambutol, rifampin. -sputum cultures pending. (2) Combined systolic and diastolic congestive heart failure: Qualifiers: Heart failure chronicity: acute on chronic Qualified Code(s): I50.43 - Acute on chronic combined systolic (congestive) and diastolic (congestive) heart failure Code(s): I50.40 - Unspecified combined systolic (congestive) and diastolic (congestive) heart failure Status: Acute Assessment and Plan: - echo 2023 with EF 49%, G1 DD - suspect component of acute exacerbation with pleural effusions, elevate BNP, crackles - received IV lasix x2, transitioned to PO lasix 20 mg daily (3) AMS (altered mental status): Code(s): R41.82 - Altered mental status, unspecified Status: Acute Assessment and Plan: - presented alert and oriented x1 - CT head with no acute process - suspect infectious in setting of UTI and possible pneumonia - continue treatment of bacterial processes - monitor mental status - now back to baseline (4) COPD (chronic obstructive pulmonary disease): Code(s): J44.9 - Chronic obstructive pulmonary disease, unspecified Status: Acute Assessment and Plan: - not in acute exacerbation -continue Mucinex and Duonebs (5) Chronic hypoxic respiratory failure, on home oxygen therapy: Code(s): J96.11 - Chronic respiratory failure with hypoxia; Z99.81 - Dependence on supplemental oxygen Status: Acute Assessment and Plan: -patient is chronically on oxygen at 4 L per nasal cannula. - currently weaned to 1-2L NC (6) Depression: Code(s): F32.A - Depression, unspecified Status: Acute Assessment and Plan: -continue with bupropion -trazodone has been on hold. (7) Anxiety disorder, unspecified: Code(s): F41.9 - Anxiety disorder, unspecified Status: Acute Assessment and Plan: -continue bupropion, Zoloft (8) HTN (hypertension): Qualifiers: Hypertension type: primary hypertension Qualified Code(s): I10 - Essential (primary) hypertension Code(s): I10 - Essential (primary) hypertension Status: Chronic Assessment and Plan: - BP stable - continue home meds (9) Hyponatremia: Code(s): E87.1 - Hypo-osmolality and hyponatremia Status: Acute Assessment and Plan: - chronically low -Na 130, near baseline. Monitor sodium closely with diuresis. (10) SANDI (acute kidney injury): Code(s): N17.9 - Acute kidney failure, unspecified Status: Acute Assessment and Plan: -Cr 1.39 on admit. Received IV lasix and fluids in ED. Cr improved to baseline. 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 Feeling better this AM. Agreeable to discharge in the AM. Review of Systems Review of Systems: All systems reviewed & are unremarkable except as noted in HPI and below Exam Narrative: General: NAD. Appears chronically debilitated. Eyes: EOMI ENT: neck supple Cardiovascular: Regular rate and rhythm Respiratory: clear to auscultation bilaterally, respirations even and unlabored on 2L NC Gastrointestinal: Soft, non tender Genitourinary: no suprapubic tenderness Musculoskeletal: No edema Skin: warm, dry Neuro: Alert and oriented x4 Psych: Mood appropriate Objective Data Vital Signs Vital Signs: Vital Signs - 24 hr 08/26/25 07:40 08/26/25 07:48 08/26/25 08:00 Temperature Pulse Rate 74 76 Respiratory Rate 18 18 Blood Pressure Pulse Oximetry 95 Oxygen Delivery Nasal Cannula Oxygen Flow Rate 2 08/26/25 11:30 08/26/25 11:39 08/26/25 14:35 Temperature 97.2 F L Pulse Rate 78 76 Respiratory Rate 18 Blood Pressure 139/63 Pulse Oximetry 98 100 Oxygen Delivery Nasal Cannula Oxygen Flow Rate 1 08/26/25 14:35 08/26/25 15:19 08/26/25 19:58 Temperature 97.6 F Pulse Rate 78 96 84 Respiratory Rate 18 18 18 Blood Pressure 130/62 Pulse Oximetry 92 Oxygen Delivery Oxygen Flow Rate 08/26/25 20:04 08/26/25 20:10 08/26/25 20:28 Temperature 98.2 F Pulse Rate 84 80 87 Respiratory Rate 18 18 Blood Pressure 132/54 L Pulse Oximetry 94 Oxygen Delivery Nasal Cannula Oxygen Flow Rate 2 Intake/Output Intake/Output: Intake & Output 08/24/25 08/25/25 08/26/25 08/27/25 23:59 23:59 23:59 23:59 Intake Total 2520 600 1550 Output Total 1850 2100 850 50 Balance 670 -1500 700 -50 Meds/Results Medications: Active Medications Generic Name Dose Route Start Last Admin Trade Name Freq PRN Reason Stop Dose Admin Acetaminophen 650 mg 08/22/25 23:22 08/27/25 04:37 Acetaminophen 325 Mg Tablet PO 650 mg Q4H PRN Administration Mild Pain (1-3) or Fever Acetylcysteine 200 mg 08/23/25 14:00 08/27/25 02:54 Acetylcysteine 20% Inhal Soln 800 Mg/4 Ml Vial INHALATION Not Given Q6HRT GIOVANNY Albuterol/Ipratropium 3 ml 08/23/25 08:00 08/27/25 02:54 Ipratropium 0.5 Mg/Albuterol Sulfate 2.5 Mg Ampul.Neb 3 Ml INHALATION Not Given Q6HRT GIOVANNY Aspirin 81 mg 08/23/25 09:00 08/26/25 10:42 Aspirin 81 Mg Enteric Tablet PO 81 mg DAILY GIOVANNY Administration Azithromycin 250 mg 08/24/25 09:00 08/26/25 10:43 Azithromycin 250 Mg Tablet PO 250 mg DAILY GIOVANNY Administration Baclofen 10 mg 08/24/25 09:45 08/27/25 04:37 Baclofen 10 Mg Tablet PO 10 mg Q8H PRN Administration Muscle Spasm Baclofen 10 mg 08/26/25 21:00 08/26/25 20:32 Baclofen 10 Mg Tablet PO 10 mg HS GIOVANNY Administration Bisacodyl 10 mg 08/23/25 04:05 Bisacodyl 10 Mg Suppository RECTAL DAILY PRN Constipation Bupropion HCl 150 mg 08/23/25 09:00 08/26/25 20:32 Bupropion Hcl Sr (12 Hr) 150 Mg Tab PO 150 mg Q12HR GIOVANNY Administration Ethambutol HCl 1,200 mg 08/23/25 09:00 08/26/25 10:42 Ethambutol Hcl 400 Mg Tablet PO 1,200 mg DAILY GIOVANNY Administration Fenofibrate 145 mg 08/23/25 09:00 08/26/25 10:43 Fenofibrate 145 Mg Tablet PO 145 mg QAM GIOVANNY Administration Furosemide 20 mg 08/26/25 10:55 08/26/25 11:13 Furosemide 20 Mg Tablet PO 20 mg DAILY GIOVANNY Administration Guaifenesin 1,200 mg 08/23/25 09:00 08/26/25 20:32 Guaifenesin 12 Hr 600 Mg Tabcr PO 1,200 mg Q12HR GIOVANNY Administration Meropenem 1 gm/ Sodium 100 mls @ 200 mls/hr 08/24/25 14:00 08/27/25 05:29 Chloride IVPB 08/27/25 23:59 200 mls/hr Q8HR GIOVANNY Administration Lorazepam 0.5 mg 08/26/25 13:03 08/26/25 13:28 Lorazepam (*Crx) 0.5 Mg Tablet PO 0.5 mg DAILY PRN Administration Anxiety Metoprolol Tartrate 50 mg 08/23/25 21:00 08/26/25 20:32 Metoprolol Tartrate 50 Mg Tab PO 50 mg HS GIOVANNY Administration Morphine Sulfate 30 mg 08/24/25 09:45 08/26/25 10:51 Morphine Sulfate (*Crx) 30 Mg Tabcr PO 30 mg Q12H PRN Administration Pain Ondansetron HCl 4 mg 08/22/25 23:22 Ondansetron Inj 4 Mg/2 Ml Vial IV PUSH Q4H PRN Nausea Pantoprazole Sodium 40 mg 08/23/25 09:00 08/26/25 10:43 Pantoprazole 40 Mg Tablet PO 40 mg QAM GIOVANNY Administration Polyethylene Glycol 17 gm 08/24/25 09:37 08/24/25 10:14 Polyethylene Glycol 3350 17 Gm Powd.Pack PO 17 gm QAM PRN Administration Constipation Rifampin 300 mg 08/23/25 14:00 08/26/25 20:32 Rifampin 300 Mg Capsule PO 300 mg Q12HR GIOVANNY Administration Senna/Docusate Sodium 1 tab 08/25/25 10:25 08/26/25 18:33 Senna/Docusate Sodium Tablet PO 1 tab BID GIOVANNY Administration Sertraline HCl 50 mg 08/23/25 09:00 08/26/25 10:43 Sertraline Hcl 50 Mg Tablet PO 50 mg DAILY GIOVANNY Administration Tamsulosin HCl 0.4 mg 08/23/25 09:00 08/26/25 18:33 Tamsulosin Hcl 0.4 Mg Capsule PO 0.4 mg BID GIOVANNY Administration Radiology Results: ITS Impressions Head CT 08/23/25 07:34 IMPRESSION: 1. Stable moderate nonspecific cerebral white matter disease, which likely represents chronic small vessel ischemic disease. Chest CT 08/23/25 09:14 IMPRESSION: 1. Moderate emphysema. 2. Diffuse lung disease with a peripheral and lower lung predominance with worsening in posterior segment right upper lobe, likely a combination of rounded atelectasis and pneumonia. 3. Chronic small right pleural effusion. Chronic bilateral pleural thickening. 4. Small sliding hiatal hernia. Chest X-Ray 08/25/25 12:27 Impression: Bilateral pneumonia Quality VTE Prophylaxis VTE prophylaxis: mechanical ordered
[2025-08-27 07:54] LABS: Hematocrit 27.5 % (42.0-52.0); Hemoglobin 8.5 g/dL (14.0-18.0); Immature Granulocyte Percent A 1.4 % (0-0.5); Lymphocytes Absolute Auto 0.69 K/mm3 (0.9-3.2); Mean Corpuscular HGB Conc 30.9 g/dl (32-36); Mean Corpuscular Hemoglobin 26.7 pg (26-34); Mean Corpuscular Volume 86.5 fl (80-100); Nucleated Red Blood Cells Absolute Auto 0.000 K/mm3 (0.0-0.012); Nucleated Red Blood Cells Perc 0.0 % (0.0-0.2); Platelet Count Result 331 k/mm3 (150-375); Red Blood Count 3.18 M/mm3 (4.6-6.20); White Blood Count 8.8 K/mm3 (4.5-10.0)
[2025-08-27 08:13] LABS: Anion Gap 4 mmol/L (4-12); Blood Urea Nitrogen 15 mg/dL (9-20); Calcium 8.4 mg/dL (8.4-10.2); Carbon Dioxide 34 mmol/L (22-30); Chloride 92 mmol/L (98-107); Estimated CRCL calculation 53 ml/min; Estimated Glomerular Filt Rate > 60; Glucose 106 mg/dL (65-110); Magnesium 1.8 mg/dL (1.6-2.3); Potassium 3.6 mmol/L (3.4-5.0); Sodium 130 mmol/L (137-145)
[2025-08-27] MEDS: ACETYLCYSTEINE 20% INHAL SOLN 800 MG/4 ML VIAL 200 MG INHALATION ×3 (08:15→19:52)
[2025-08-27] MEDS: IPRATROPIUM 0.5 MG/ALBUTEROL SULFATE 2.5 MG AMPUL.NEB 3 ML INHALATION ×3 (08:15→19:52)
[2025-08-27] MEDS: TAMSULOSIN HCL 0.4 MG CAPSULE PO ×2 (09:02→17:51)
[2025-08-27] MEDS: AZITHROMYCIN 250 MG TABLET PO (09:02)
[2025-08-27] MEDS: SENNA/DOCUSATE SODIUM TABLET 1 TAB PO ×2 (09:02→17:51)
[2025-08-27] MEDS: SERTRALINE HCL 50 MG TABLET PO (09:02)
[2025-08-27] MEDS: ETHAMBUTOL HCL 400 MG TABLET 1200 MG PO (09:03)
[2025-08-27] MEDS: buPROPion HCL SR (12 HR) 150 MG TAB PO ×2 (09:03→20:41)
[2025-08-27] MEDS: PANTOPRAZOLE 40 MG TABLET PO (09:03)
[2025-08-27] MEDS: FENOFIBRATE 145 MG TABLET PO (09:03)
[2025-08-27] MEDS: ASPIRIN 81 MG ENTERIC TABLET PO (09:03)
[2025-08-27] MEDS: guaiFENesin 12 HR 600 MG TABCR 1200 MG PO ×2 (09:03→20:41)
[2025-08-27] MEDS: FUROSEMIDE 20 MG TABLET PO (09:03)
[2025-08-27] MEDS: LORazepam (*CRX) 0.5 MG TABLET PO ×2 (09:11→23:48)
[2025-08-27] MEDS: MORPHINE SULFATE (*CRX) 30 MG TABCR PO (09:11)
[2025-08-27] MEDS: METOPROLOL TARTRATE 50 MG TAB PO (20:42)
[2025-08-28] VITALS (13 sets, daily range): BP systolic 119–144; BP diastolic 46–69; PULSE 72–96; RESP 16–18; TEMP 35.8–36.8; O2SAT 94–100
[2025-08-28] MEDS: ACETYLCYSTEINE 20% INHAL SOLN 800 MG/4 ML VIAL 200 MG INHALATION ×4 (01:29→18:18)
[2025-08-28] MEDS: IPRATROPIUM 0.5 MG/ALBUTEROL SULFATE 2.5 MG AMPUL.NEB 3 ML INHALATION ×4 (01:29→18:18)
[2025-08-28] MEDS: ETHAMBUTOL HCL 400 MG TABLET 1200 MG PO (08:16)
[2025-08-28] MEDS: AZITHROMYCIN 250 MG TABLET PO (08:16)
[2025-08-28] MEDS: SERTRALINE HCL 50 MG TABLET PO (08:16)
[2025-08-28] MEDS: TAMSULOSIN HCL 0.4 MG CAPSULE PO ×2 (08:16→17:13)
[2025-08-28] MEDS: buPROPion HCL SR (12 HR) 150 MG TAB PO (08:16)
[2025-08-28] MEDS: SENNA/DOCUSATE SODIUM TABLET 1 TAB PO ×2 (08:16→17:13)
[2025-08-28] MEDS: ASPIRIN 81 MG ENTERIC TABLET PO (08:17)
[2025-08-28] MEDS: FENOFIBRATE 145 MG TABLET PO (08:17)
[2025-08-28] MEDS: PANTOPRAZOLE 40 MG TABLET PO (08:17)
[2025-08-28] MEDS: FUROSEMIDE 20 MG TABLET PO (08:17)
[2025-08-28] MEDS: guaiFENesin 12 HR 600 MG TABCR 1200 MG PO (08:17)
[2025-08-28] MEDS: MORPHINE SULFATE (*CRX) 30 MG TABCR PO (08:38)
[2025-08-28] MEDS: LORazepam (*CRX) 0.5 MG TABLET PO (08:38)
--- NOTE | 2025-08-28 08:38 | PM.PNPUL ---
Progress Note: A&P Assessment and Plan (1) COPD (chronic obstructive pulmonary disease): Code(s): J44.9 - Chronic obstructive pulmonary disease, unspecified Status: Acute Assessment and Plan: Gold grade 2 group E COPD Regarding his COPD, patient with 60 pack year tobacco use quit in 2019, alpha 1 anti trypsin genotype MM, [id number] apical predominant centrilobular and paraseptal emphysema on his CT scan from 10/11/2021. Of note he has had COVID pneumonia on 09/10/2021 and Pseudomonas aeruginosa on 10/10/2021 and 04/26/2025 and 06/16/2025. His PFTs from 12/16/2023 show mild obstruction with FEV1 68%, ratio 61%. No bronchodilator response, hyperinflation, severely decreased DLCO the remains mildly decreased when adjusted for alveolar volume. Compared to 01/01/2022 had been a significant decrease in the FVC, FEV1, total lung capacity, functional residual capacity and diffusing capacity. When admitted for pneumonia had an ABG on 02/25/2024 on 3 L nasal cannula 7.44/36/67. 10/04/2024: ABG on 2 L 7.43/41/75. 06/29/2025: 2 L ABG 7.37/49/113. 10/04/2024: White blood cell count 11.1 eosinophils 3.2%=355/uL. 04/09/2024 white blood cell count 11.1, eosinophils 0.4%=44/uL. 06/28/2025 white blood cell count 14.8, 1.8%=266 uL. 08/22/2025: White blood cell count 11.0, eosinophils 0% equals 0 per micro L. 08/23/25: Patient tells me he has 2 days worsening cough and breathing but denied fever, chills, change in his phlegm volume or production and no hemoptysis. He has no wheezing on exam. He is debilitated, he has a poor ineffective cough and can not clear his secretions. We has chronic hypoxemic respiratory failure on 4 L nasal cannula at rest and with activity and currently is on 2 L nasal cannula. Patient had CT scan of the chest compared to 07/29/2025 with no change in his emphysema, small right and trace left pleural effusion, worse infiltrate posterior segment of the right upper lobe, superior segment of the left lower lobe, dependent areas of the right lower lobe and no change in the dependent infiltrates in his left lower lobe. Plan: I do not feel this is a COPD exacerbation. He has no wheezing on exam. I do not recommend systemic or inhaled steroids. In the past the patient has required DuoNebs q.6, Mucomyst nebulizers q.6, guaifenesin 1200, vest b.i.d., and Cornet flutter valve Q 4 to help him expectorate and I will initiate these treatments. The patient is at very high risk for mucus plugging which can result in acute hypoxemia. Apparently was hypoxemic at the group home but in the emergency department he was on his baseline 4 L with saturations 100%. He may have had a mucus plug at the group home. Regarding his new infiltrates on his CT scan. This is recurring pattern for this patient. Possible etiology of these recurrent infiltrates include atelectasis, mucus plugging, or infection. I will treat him aggressively for atelectasis and mucus plugging as above. He has no other symptoms of pulmonary bacterial infection, His oxygen requirements are actually improved from his baseline. procalcitonin 0.5. I am not convinced the patient has a new bacterial infection in his lungs. He was empirically started on ciprofloxacin and he tells me he is back at his baseline after 1 dose. Consider discontinuation of ciprofloxacin. I have sent a respiratory pathogen panel, urine for Legionella, urine for pneumococcal, serum mycoplasma IgM, COVID, influenza, RSV RT PCR. He was given 1 dose of IV Lasix and has responded to IV Lasix in the past. agree with gentle diuresis as tolerated by his cardiac and renal systems. 08/24/25: Patient said he had worse shortness of breath. Worse cough with less phlegm. The phlegm he was producing this screen. I asked him to expectorate and he expectorated 4 times with difficulty. After this expectoration his said his breathing was better. When I enter the room he was on 2 L nasal cannula saturations 95%. I decreased him to 1 L and his saturation was 93%. He is afebrile. White blood cell count 10.2, creatinine 0.91 procalcitonin is decreased from 0.5 on 08/23/2025 to 0.3 today. His CRP is decreased from 20/8 0.7 on 08/23/2025 to 24.6. He is cumulative positive 1.5 L since admission. His weight today is 70.2. Plan: I do not believe he is having a COPD exacerbation. His shortness of breath this morning was partially alleviated by expectoration of phlegm. Continue DuoNebs q.6 hours, Mucomyst q.6 hours, guaifenesin 1200, vest therapy b.i.d. and Cornet flutter valve for phlegm expectoration. I have decreased his oxygen to 1 L nasal cannula. Infectious disease consult has placed the patient on meropenem, day 2. He was given 1 dose of IV Lasix 20 mg on 08/23 and has responded to IV Lasix in the past. BNP 2630 He is positive 1.5 L since admission. agree with gentle diuresis as tolerated by his cardiac and renal systems. I have ordered 20 of Lasix IV today. 08/25/2025: Patient tells me he is breathing normal at his baseline today. He denies cough, phlegm or hemoptysis. He is afebrile. When I enter the room he was on 1.5 L nasal cannula oxygen with saturations 96%. I decreased him to Room air and after 4 minutes his saturations were 88% and I placed him on 1 L and his saturations were 94%. white blood cell count 8.3, creatinine 1.01, CRP has decreased from 24.6 on 08/24/2025 to 22 today. BNP has remain unchanged from 2630 on 08/23/2025 to 2600 today. Procalcitonin slightly decreased from 0.3 on 08/24/2025 to 0.2 today. yesterday the patient was positive 670 mL, cumulative he is positive 1.6 L since admission. His weight is 69.4. Plan: Patient breathing has improved with meropenem day 3, Lasix diuresis, and aggressive treatment for sputum expectoration with DuoNebs q.6, Mucomyst q.6, guaifenesin 1200 b.i.d., vest b.i.d. and Cornet flutter valve. His oxygenation has improved and he is on 1 L which was a baseline for him on his last admission in June of 2025. Pulmonary inpatient services will resume on 08/28/2025. Call the on-call physician with questions. 08/28/2025: Patient tells me he is breathing normal. He has his baseline rest shortness of breath. He has not been out of bed. He has a very small cough with no phlegm and no hemoptysis. Patient is on 1 L nasal cannula saturations 95%. He is afebrile. Yesterday was positive 630 mL. Cumulative he is positive 1.3 L. His weight today is 65.2 kg. respiratory pathogen panel, urine Legionella and mycoplasma IgM negative. From a pulmonary perspective patient can be discharged on these pulmonary medicines: DuoNebs q.i.d. Guaifenesin 1200 mg p.o. b.i.d. Vest therapy twice a day Cornet flutter valve q.2 hours while awake Oxygen per lobe L as protocol. Currently the patient is require 1 L nasal cannula at rest with saturations 95%. Antibiotics for possible pneumonia from this admission and MAC lung disease per Infectious Disease consult. Follow-up in the Pulmonary Clinic in 4 weeks. I gave him our business card and informed our medical scheduler. Discussed with Patricia Jeffers, will sign off, call with questions. (2) Chronic hypoxic respiratory failure, on home oxygen therapy: Code(s): J96.11 - Chronic respiratory failure with hypoxia; Z99.81 - Dependence on supplemental oxygen Status: Acute Assessment and Plan: on 07/01/2025 when I saw him in the hospital he was on 1 L at rest, 4 L with activity and 2 L at night. Since then he tells me he has been wearing 4 L 24-7. 08/23/2025: Patient's baseline is 4 L nasal cannula and currently his on 2 L nasal cannula with saturations 97%. Plan: Goal saturation 90-94%. Adjust oxygen accordingly. 08/24/2025: I have decreased to 1 L nasal cannula Plan: Goal saturations 90-94%, adjust oxygen accordingly 08/25/25: I have decreased him to 1 L today and his saturations are 94%. 08/28/2025: Patient on 1 L nasal cannula saturations 95%. 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 patient started on rifabutin 300 q.day, azithromycin 500 mg q.day, ethambutol 1200 mg q.day on 06/05/2025. Patient with a history of SNEHA in sputum, multiple pulmonary infections requiring antibiotics on 02/25/2024, 04/10/2024, 09/08/2024, 10/04/2024, 11/04/2024, 11/20/2024, 12/02/2024, 03/02/2025, 04/25/2025, 05/12/2025, 05/22/2025, (started SNEHA treatment 06/05/25), 06/15/2025, 06/28/2025, 07/18/2025, 07/29/2025 and 08/22/25. Other comorbidities include COPD and history of fluid overload. Patient had CT scan of the chest compared to 07/29/2025 with no change in his emphysema, small right and trace left pleural effusion, worse infiltrate posterior segment of the right upper lobe, superior segment of the left lower lobe, dependent areas of the right lower lobe and no change in the dependent infiltrates in his left lower lobe. 08/23/25: Patient reportedly sent to the hospital with decrease oxygen saturation but currently he is on 2 L nasal cannula now with a baseline of 4 L nasal cannula. He says that he is breathing normally after treatment with bronchodilators, IV fluids, 1 dose of Cipro. He is afebrile and has no respiratory complaints. His procalcitonin is 0.5. Plan: Infectious disease consult placed. Await recommendations regarding ethambutol 1200 mg p.o. q.day, azithromycin 250 mg p.o. q.day, and rifabuton 300 mg p.o. q.day. 08/24/2025: Infectious disease team has restarted his SNEHA medicines. Plan: Ethambutol 1200 mg p.o. q.day, azithromycin 250 p.o. q.day, rifampin 300 mg q.12 hours. Management per Infectious Disease team. 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 He has required antibiotics for lung infections on: 02/25/2024, 04/10/2024, 09/08/2024, 10/04/2024, 11/04/2024, 11/20/2024, 12/02/2024, 03/02/2025, 04/25/2025, 05/12/2025, 05/22/2025, 05/30/2025, 06/15/2025, 06/28/2025, 07/18/2025, 07/29/2025 and 08/22/25. Patient recently admitted to the hospital from 06/15/2025 to 06/23/2025 for shortness of breath and hypoxia. he was treated with Levaquin, pulmonary hygiene maneuvers and his azithromycin was decreased from 500 mg p.o. q.day to 250 mg p.o. q.day due to hearing decrease. Patient left the hospital on 06/23/2024 in no respiratory distress but he was weak and fatigued easily. Patient recently admitted to the hospital from 06/28/2025 through 07/02/2025 for weakness, shortness of breath and hypoxia. he was 9 compliant with his SNEHA medicines which were restarted. He was deconditioned and could walk 80 ft. He was treated with DuoNebs q.6, Mucomyst nebulizers q.6, guaifenesin 1200, vest b.i.d., Cornet flutter valve Q 4 because he was debilitated and could not expectorate. Discharged to SNF facility Patient recently admitted to the hospital 07/18/2025 through 07/23/[address] head negative. Thought to be related from his transition from [facility] to back home. Discharged to [facility]. Patient recently admitted to the hospital 07/29/2025 through 08/05/2025 for possible community-acquired pneumonia, Mild SANDI. Treated with ciprofloxacin. 08/23/2023: Patient presented from [facility] with altered mental status and decrease oxygen saturation. Apparently he was lethargic, not getting out of bed and his mental status had decreased to a and O x1. He was given Narcan with no improvement. Blood pressure was 98/41, heart rate 66 4, respirations 17, afebrile, 4 L nasal cannula saturation 100%. He had coarse breath sounds bilaterally with no wheezing. White blood cell count 11.0, creatinine 1.39, serum bicarb 28. Venous blood gas on 4 L nasal cannula 7.37/45/ less than 27. Lactic acid 1.5. Patient was given 1 L IV fluid with improvement in blood pressure. Patient was started on ciprofloxacin. Patient had CT scan of the chest compared to 07/29/2025 with no change in his emphysema, small right and trace left pleural effusion, worse infiltrate posterior segment of the right upper lobe, superior segment of the left lower lobe, dependent areas of the right lower lobe and no change in the dependent infiltrates in his left lower lobe. Currently the patient tells me his name. States he is in [facility]. States the date is 08/28/2025. 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 Correctly names the pen, pen cap and clip of the [place] cap. He is nonfocal if the with his upper extremities and lower extremities. When I talked to the patient this morning he said that on 08/21/2025 he was normal during the day but later that night he developed shortness of breath, worse cough with minimal phlegm production and no blood. He denied fever. He slept that night but on 08/22/2025 he had worsening breathing, more phlegm production and cough. he complains that he can not expectorate his phlegm. Symptoms progressed and he presented to the emergency room. He is breathing normal, his cough is gone he has no phlegm and no blood. He is afebrile. When I enter the room his saturations on 4 L were 98%. I decreased him to 2 L and his saturations were 97%. when I asked the patient to cough as before he is debilitated, weak and has an ineffective cough and cannot clear his secretions. He is afebrile. White blood cell count 11.8, creatinine 1.07, BUN 26, BNP is 2630, CRP is pending, procalcitonin is pending. 08/24/25: Patient said he had worse shortness of breath. Worse cough with less phlegm. The phlegm he was producing this screen. I asked him to expectorate and he expectorated 4 times with difficulty. After this expectoration his said his breathing was better. When I enter the room he was on 2 L nasal cannula saturations 95%. I decreased him to 1 L and his saturation was 93%. He is afebrile. White blood cell count 10.2, creatinine 0.91 procalcitonin is decreased from 0.5 on 08/23/2025 to 0.3 today. His CRP is decreased from 20/8 0.7 on 08/23/2025 to 24.6. He is cumulative positive 1.5 L since admission. His weight today is 70.2. 08/25/2025: Patient tells me he is breathing normal at his baseline today. He denies cough, phlegm or hemoptysis. He is afebrile. When I enter the room he was on 1.5 L nasal cannula oxygen with saturations 96%. I decreased him to Room air and after 4 minutes his saturations were 88% and I placed him on 1 L and his saturations were 94%. white blood cell count 8.3, creatinine 1.01, CRP has decreased from 24.6 on 08/24/2025 to 22 today. BNP has remain unchanged from 2630 on 08/23/2025 to 2600 today. Procalcitonin slightly decreased from 0.3 on 08/24/2025 to 0.2 today. yesterday the patient was positive 670 mL, cumulative he is positive 1.6 L since admission. His weight is 69.4. 08/28/2025: Patient tells me he is breathing normal. He has his baseline rest shortness of breath. He has not been out of bed. He has a very small cough with no phlegm and no hemoptysis. He is afebrile. Yesterday was positive 630 mL. Cumulative he is positive 1.3 L. His weight today is 65.2 kg. DATA (infectious disease): 06/23/25:. His sputum shows moderate growth of Pseudomonas aeruginosa (recurrent) and Lucia. Pseudomonas sensitive to amikacin, aztreonam, ceftazidime, cefepime, gentamicin, meropenem, Zosyn and tobramycin. Intermediate to ciprofloxacin and imipenem. Resistant to Levaquin. 12/15/2024 sputum with AFB verified on 01/14/25 and grew SNEHA on 03/03/25. Sensitivities 03/20/25. On 03/20/[address] [facility] with appointment scheduled for 05/02/2025. Sputum on 12/16/2024 with AFB verified on 01/20/25 and grew SNEHA on 02/01/25.?Sensitivities 03/28/25. 2024 admissions: * 05/30/2025 [place] admission shortness of breath; transferred to [place] 06/04 to 06/07; discharged on Levaquin to continue until June 18; continue SNEHA meds * 05/12/2025, ER visit, shortness of breath, home. * 04/25/25 -04/28/25; admitted [place] respiratory distress, hypoxemia, transferred to [place]; ID saw him 05/02/25; SNEHA; started Rx w azithromycin 500 mg/D, Rifabutin 300 mg/D, ethambutol 1200 mg/ day initial sputum with SNEHA was 12/16/2024 with AFB verified on 01/20/25 and grew SNEHA on 02/01/25.?Sensitivities 03/28/25. QuantiFERON gold was negative on 01/24/25. ORGANISM: MYCOBACTERIUM AVIUM COMPLEX AMIKACIN: 16 S mcg/mL AMIKACIN (LIPOSOMAL, INHALED): 16 S mcg/mL CIPROFLOXACIN: >8 mcg/mL CLARITHROMYCIN: 2 S mcg/mL CLOFAZIMINE: 0.25 mcg/mL DOXYCYCLINE: >8 mcg/mL LINEZOLID: 16 I mcg/mL MINOCYCLINE: >8 mcg/mL MOXIFLOXACIN: 4 R mcg/mL RIFABUTIN: 1 mcg/mL RIFAMPIN: >4 mcg/mL STREPTOMYCIN: >32 * This is a corrected result. * A prior result that was reported as final has been changed. 1. Mycobacterium avium complex M.I.C. RX --------- --- Rifampin AFB >4 S Streptomycin AFB R Amikacin AFB 16 S Moxifloxacin AFB R DATA (imaging and PFT): 08/22/25: EXAMINATION:CT diagnostic chest w con DATE: 08/22/2025 22:25 INDICATION: Hypoxia. TECHNIQUE: Computed tomography (CT) of the chest was performed with 75 mL Omnipaque 350 intravenous contrast. Automated exposure control and iterative reconstruction technique were employed. The dose-length product (DLP) was 229.16 mGy-cm. COMPARISON: Chest CT 07/29/2025 FINDINGS: There is moderate emphysema. There are small right and trace left pleural effusions with pleural thickening. There is chronic peripheral septal thickening in the lungs. There are peripheral airspace opacities in all lobes with a lower lung predominance with worsening in posterior segment right upper lobe. There are tree-in-bud opacities in left upper lobe posteriorly. There are nodules in the thyroid measuring up to 5 mm, likely not clinically significant. The heart size is normal. There are coronary artery calcifications. No pericardial effusion. There is mild mediastinal lymphadenopathy, likely reactive. Calcified mediastinal lymph nodes are consistent with old granulomatous disease. Calcifications in the spleen are consistent with old granulomatous disease. There are cysts in the liver measuring up to 12 mm. There are bridging endplate osteophytes at multiple levels in the spine, consistent with diffuse idiopathic skeletal hyperostosis (DISH). There is moderate thoracic spondylosis. IMPRESSION: 1. Moderate emphysema. 2. Diffuse lung disease with a peripheral and lower lung predominance with worsening in posterior segment right upper lobe, likely a combination of rounded atelectasis and pneumonia. 3. Chronic small right pleural effusion. Chronic bilateral pleural thickening. 4. Small sliding hiatal hernia. 06/29/2025: Clinical Indication: Hypoxia CT Scan of the Chest with Contrast: Technique: Contiguous sections were acquired throughout the chest after intravenous administration of 100 cc of Omnipaque 350. Dose reduction technique was used on this scan by utilizing automated exposure control and iterative reconstruction technique. The dose-length product (DLP) was 283.61 mGy-cm. COMPARISON: 06/01/2025 Findings: Multiple shotty/minimally enlarged mediastinal lymph nodes are present along the right paratracheal stripe and AP window region. There is no filling defect in the pulmonary arterial tree to suggest pulmonary embolus. There is no evidence of aortic dissection or aneurysm. No pericardial effusion. There are small bilateral pleural effusions. Bibasilar consolidation with air bronchograms is present, which could reflect atelectasis/pulmonary edema versus pneumonia. There is probable chronic scarring or interstitial change in the right middle lobe. There are patchy areas of consolidation the left upper lobe and right upper lobe, which could reflect additional or new versus pneumonia. There is mild to moderate emphysema.. Images through the upper abdomen reveal no abnormalities. Impression: No evidence of pulmonary embolus, aortic dissection, or aortic aneurysm. Patchy bilateral consolidation, suggestive of pneumonia and possible superimposed bibasilar atelectasis. There is significant worsening in the left upper lobe as compared to prior exam. Otherwise, remaining areas of airspace disease are similar to prior exam in the remainder of the lungs. Pulmonary edema not completely excluded, though felt to be somewhat less likely given the appearance and distribution of findings. Possible chronic scarring or atelectasis in the right middle lobe. Minimal pleural effusions. 05/12/25: EXAMINATION: CTA chest PE protocol DATE: 05/12/2025 14:25 INDICATION: Dyspnea. Elevated d-dimer. TECHNIQUE: Computed tomography (CT) pulmonary angiogram of the chest was performed with 100 mL Omnipaque-350 intravenous contrast. Additional 3D reconstructions utilizing coronal maximum intensity projection (MIP) were performed. Automated exposure control and iterative reconstruction technique were employed. The dose-length product was 310.42 mGy-cm. COMPARISON: 04/26/2025 FINDINGS: No pulmonary embolism. Mild emphysema. Bronchial wall thickening in the bilateral lower lobes with some frothy appearing mucous in the right bronchus intermedius and right lower lobar bronchi consistent with bronchitis. Unchanged small right pleural effusion is been some interval improvement in groundglass opacities and patchy consolidation in the right lower lobe consistent with improving pneumonia. There is unchanged region of peripheral round atelectasis in the posterior left lower lobe with associated architectural distortion and volume loss. Additional unchanged linear discoid atelectasis at the right middle lobe. Heart size is normal. Atherosclerotic coronary artery calcific location. No pericardial effusion. Thoracic aorta is normal in caliber with no dissection. Enlargement of the central pulmonary arteries consistent with pulmonary arterial hypertension. No pathologically enlarged thoracic lymphadenopathy. Moderate-sized sliding-type hiatal hernia. Multiple low-attenuation cysts scattered throughout the liver measuring up to 1.5 cm. There is also a 1.8 cm cyst at the upper pole the right kidney. Mild thoracic spondylosis with bridging osteophytes at multiple levels consistent with diffuse idiopathic skeletal hyperostosis (DISH). IMPRESSION: 1. No pulmonary embolism. 2. Decreasing consolidation in the right lower lobe consistent with improving pneumonia. 3. Unchanged small right pleural effusion. 4. Mild emphysema and enlargement of the central pulmonary arteries consistent with pulmonary arterial hypertension. 5. Moderate-sized sliding-type hiatal hernia. 04/26/2025: EXAMINATION: CTA chest PE protocol DATE: 04/26/2025 13:46 CDT INDICATION: Shortness of breath TECHNIQUE: Computed tomographic angiography (CTA) of the chest was performed with 100 mL Omnipaque-350 intravenous contrast. The dose-length product was 256.22 mGy-cm. Maximum intensity projection 3D-reconstructions of the aorta and other arteries were constructed by the technologist on a separate workstation. Automated exposure control and iterative reconstruction technique were employed. COMPARISON: Chest x-ray dated 04/25/[address] dated 11/20/2024. FINDINGS: Small right pleural effusion. Trace left pleural effusion. There is mediastinal lymphadenopathy. There is right hilar lymphadenopathy. There is atherosclerosis of the aorta and coronary arteries. Small hiatal hernia. Heart size normal. Pulmonary arteries are enlarged, consistent with pulmonary hypertension. Study is technically adequate without evidence for pulmonary embolism. There is patchy bilateral airspace disease of the right upper, right middle and bilateral lower lobes, consistent with multifocal pneumonia. No endobronchial lesions. There is emphysema. No suspicious pulmonary nodules or masses. Mild thoracic spondylosis. No focal lytic or blastic lesions. IMPRESSION: 1. Multifocal airspace disease, consistent with pneumonia. 2: Bilateral pleural effusions, right greater than left. 3: Mediastinal lymphadenopathy, likely reactive. 4.: Pulmonary artery enlargement, consistent with pulmonary hypertension. 5: Emphysema. My read: I have compared this to CT scans from 11/20/2024 and 08/29/2024 and 02/25/2024. Current CT shows no PE, , Small right pleural effusion, worsening consolidation and infiltrates in the right lower lobe compared to 11/20/2024 and 02/25/2024. Compared to CT scan on 02/25/2024 currently there are some areas of improved consolidation in the right lower lobe and some different areas with worsening consolidations in the right lower lobe. There is unchanged consolidation in the posterior left lower lobe with no change compared to 11/20/2024, 08/29/2024 and that have improved from 02/25/2024. Currently there are patchy consolidations in the right middle lobe some which were present on 11/20/2024 and some that are new. There were no infiltrates on 08/29/2024 in the right middle lobe. 01/02/25: Modified barium swallow: Impression: Moderate dysphagia 11/20/24: EXAMINATION:. Recommendations: Regular but easy to chew diet with regular liquids but patient must use chin tuck posture with all eating and drinking to prevent pharyngeal residual and instances of laryngeal penetration and aspiration. He was referral to outpatient speech therapy. 12/14/24: CRP 3.6, ESR 134, CPK 43, Aspergillus Niger IgE 0.31, very low level. Aspergillus Niger antibody negative, Aspergillus flatus antibody negative. Aspergillus fumigatus antibody negative. Rheumatoid factor 12.9, anti CCP antibody less than 16. TERRA screen positive with an anti-DNA antibody 27 (positive greater than 10), Anca screen negative, hypersensitivity pneumonitis panel negative. 01/24/2025: QuantiFERON gold negative. IgE 691 normal less than 114, rheumatoid factor 12.9. IgG 693, IgM 90, IgA 212, all normal. Aldolase 5.0 11/20/2024: CTA chest PE protocol INDICATION: Hypoxia elevated d-dimer COMPARISON: 08/29/2024 and 10/11/2021. FINDINGS: No filling defects within the main or proximal pulmonary arteries. The thoracic aorta is unremarkable. No aneurysmal dilatation or dissection. The heart is of normal size, without pericardial effusion. Panlobular emphysematous disease is identified. Patchy groundglass opacification detected bilaterally. Small bilateral pleural effusions with adjacent compressive atelectasis Multiple subcentimeter areas of decreased attenuation within the liver, unchanged dating back to 10/11/2021. IMPRESSION: No pulmonary embolus. No aneurysmal dilatation or dissection within the thoracic aorta. Small bilateral pleural effusions with adjacent compressive atelectasis. 08/16/2024: Overnight oximetry on 3 L nasal cannula. The report in the computer status overnight oximetry on room air but this is mislabeled as the test was performed on 3 L. Recording duration 8 hours and 39 minutes. Basal saturation 92.1%. High saturation 96%. Low saturation 79%. Time with saturation less than or equal to 88% was 4 minutes and 58 seconds. I will continue oxygen 3 L at night. 06/24/2024: This is a 6 minute walk test. The test was performed and interpreted in accordance with the 2014 ERS/ATS task force guidelines. Of note, patient used to wheeled walker for stability and the testing was performed on his home portable oxygen concentrator at 3 L with pulse dose. Findings: The patient's resting 3 L oxygen saturation measured by pulse oximetry was 95% and heart rate was 80 bpm. Patient ambulated for 137 meters and oxygen saturation remained 91 to 92%. Heart rate at the end of the study was 94 bpm. The patient did not have rest or exertional hypoxemia on 3 L nasal cannula pulse dose with his portable oxygen concentrator. 02/25/24 - CTA chest (ER) - No PE identified. 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 There is patchy consolidation in the right middle and bilateral lower lobes with additional regions of tree-in-bud opacity scattered throughout both lungs consistent with multifocal pneumonia. There is associated bronchial wall thickening and mucous plugging in the bilateral lower lobes. Tiny left pleural effusion. No septal line thickening to suggest pulmonary edema. No pneumothorax. Mild cardiomegaly. Atherosclerotic coronary artery calcifications. No pericardial effusion. 02/25/2024: ABG on 4 L cannula 7.39/35/63 01/15/24 - Home O2 eval - Required 2L/min O2 with ambulation and none at rest. 12/16/23 - PFT The test was performed and results interpreted in accordance with the 2019 and 2005 ATS/ERS Task Force guidelines respectively using the Global Lung Function Initiative-2012 reference equations. Patient demonstrated good effort and cooperation. Reproducibility criteria were met. The quality of the pre bronchodilator spirometry maneuver was Grade A and post bronchodilator spirometry maneuver was Grade A. Findings: Spirometry: There is decreased maximal expiratory airflow at all lung volumes with concave expiratory flow tracing. The contour the inspiratory flow tracing is normal. The pre bronchodilator FVC is 3.33 L, 82% predicted. The pre bronchodilator FEV1 is 2.02 L, 68% predicted. The pre bronchodilator FEV1: FVC ratio 61%. The post bronchodilator FVC is 3.41 L, representing a 2% increase. The post bronchodilator FEV1 is 2.09 L, representing a 3% increase. The post bronchodilator FEV1: FVC ratio 61%. Plethysmography: The total lung capacity is 6.43 L, 89% predicted. The functional residual capacity is 4.14 L, 106% predicted. The residual volume is 3.10 L, 115% predicted. The residual volume: Total lung capacity ratio is 48%. Diffusing capacity: The diffusing capacity unadjusted for hemoglobin and carboxyhemoglobin is 9.0, 37% predicted. The diffusing capacity adjusted for alveolar volume is 2.29, 64% predicted. Comparison to previous pulmonary function testing on 01/01/2022 the post bronchodilator FVC has decreased from 4.38 L to 3.41 L. The post bronchodilator FEV1 has decreased from 3.11 L to 2.09 L. the total lung capacity is decreased from 7.39 L to 6.43 L. The functional residual capacity has decreased from 4.95 L to 4.14 L. The residual volume is unchanged from 2.93 L to 3.10 L. The diffusing capacity unadjusted for hemoglobin and carboxyhemoglobin is decreased from 14.9 to 9.0. The diffusing capacity adjusted for alveolar volume decreased from 2.63 to 2.29 Impression: There is a mild obstructive abnormality. There is no significant improvement after inhaling a single dose of albuterol. The increase in residual volume to total lung volume ratio is consistent with hyperinflation from an obstructive abnormality. The diffusing capacity unadjusted for hemoglobin and carboxyhemoglobin is severely decreased and remains mildly decreased when adjusted for alveolar volume. Compared to prior pulmonary function testing on 01/01/2022 there has been a significant decrease in the FVC, FEV1, total lung capacity, functional residual capacity and diffusing capacity with no significant change in the residual volume. 09/16/23 - Home O2 eval - Required 2L/min O2 with ambulation and none at rest. 01/01/22 - Home O2 eval - Patient did not require supplemental oxygen at rest or with exertion. 01/01/22 - PFTs - Mild obstructive abnormality with normal FEV1 without significant improvement after inhaling a single dose of albuterol. Lung volumes normal. The diffusing capacity unadjusted for hemoglobin is moderately decreased and normalizes when adjusted for alveolar volume. 12/18/21 - Overnight oximetry on room air - Time with saturation less than or equal to 88% was 4.0 minutes. Patient does not qualify for supplemental oxygen at night. 10/10/2021 - ABG on 4L NC - 7.44/43/70. 10/20/21 - Chest XR - Persistent patchy bilateral airspace disease with possible improvement in the left lung, compatible with pneumonia. 10/11/2021 - CTA chest - Extensive bilateral pulmonary infiltrates and likely reactive hilar or mediastinal adenopathy. Small right pleural effusion. No evidence of pulmonary embolism. 10/11/2021 - Echo - LV systolic function mildly reduced, EF 45-50%. Grade I diastolic dysfunction. The inferior wall, inferoseptal wall, basal inferolateral wall, and mid inferolateral wall are hypokinetic. Mild LA enlargement. No pulmonary hypertension. Review of Systems Constitutional: Constitutional: Reports no additional constitutional complaints Eyes: Eyes: Reports no additional eye complaints ENT: Reports system reviewed and no additional complaints, except as documented Cardiovascular: Cardiovascular: Reports no additional cardiovascular complaints Respiratory: Respiratory: Reports no additional respiratory complaints Gastrointestinal: Gastrointestinal: Reports no additional gastrointestinal complaints Musculoskeletal: Musculoskeletal: Reports no additional musculoskeletal complaints Neurologic: Reports system reviewed and no additional complaints, except as documented Psychiatric: Psychiatric: Reports no additional psychiatric complaints Endocrine: Endocrine: Reports no additional endocrine complaints Hematologic/Lymphatic: Hematologic/Lymphatic: Reports no additional hematologic/lymphatic complaints Allergic/Immunologic: Allergic/Immunologic: Reports no additional allergic/immunologic complaints Exam Const: General: cooperative, healthy appearing and comfortable Orientation/consciousness: oriented to person, oriented to place and oriented to time HENMT: Head: normal to inspection Ears: hearing grossly normal bilaterally Eyes: General: appearance normal, both eyes and all related structures Neck: Neck: normal visual inspection Chest: Chest palpation & inspection: normal inspection of the chest Resp: Effort & Inspection: normal respiratory effort and able to speak in complete sentences Auscultation: crackles, no rales, no rhonchi, no wheezes and diminished lung sounds Other: basilar inspiratory crackles, Right greater than left . No wheezing Cardio: Jugular venous distension: no JVD GI: Inspection: normal to inspection Skin: General skin exam: normal color Neuro: General: oriented to person, oriented to place and oriented to time Extrem: General: normal to inspection Psych: Appearance: grossly normal Objective Data Vital Signs Vital Signs: Vital Signs - 24 hr 08/27/25 09:03 08/27/25 11:55 08/27/25 13:49 Temperature 36.0 C L Pulse Rate 83 73 Respiratory Rate 17 18 Blood Pressure 132/63 Pulse Oximetry 94 99 Oxygen Delivery Nasal Cannula Oxygen Flow Rate 1 08/27/25 14:00 08/27/25 19:52 08/27/25 20:00 Temperature Pulse Rate 73 77 Respiratory Rate 18 18 Blood Pressure Pulse Oximetry 96 Oxygen Delivery Nasal Cannula Oxygen Flow Rate 1 08/27/25 20:12 08/27/25 20:42 08/27/25 22:00 Temperature 36.8 C Pulse Rate 72 74 103 H Respiratory Rate 18 16 Blood Pressure 122/55 L Pulse Oximetry 94 Oxygen Delivery Oxygen Flow Rate 08/28/25 00:35 08/28/25 01:29 08/28/25 01:39 Temperature 36.8 C Pulse Rate 75 76 77 Respiratory Rate 18 18 18 Blood Pressure 144/55 H Pulse Oximetry 99 Oxygen Delivery Oxygen Flow Rate 08/28/25 06:00 08/28/25 07:50 08/28/25 07:54 Temperature 36.6 C Pulse Rate 72 77 77 Respiratory Rate 16 17 Blood Pressure 122/46 L Pulse Oximetry 95 94 Oxygen Delivery Nasal Cannula Oxygen Flow Rate 2 08/28/25 08:02 08/28/25 08:05 Temperature 35.8 C L Pulse Rate 83 83 Respiratory Rate 17 16 Blood Pressure 143/54 H Pulse Oximetry 100 Oxygen Delivery Oxygen Flow Rate Intake/Output Intake/Output: Intake & Output 08/25/25 08/26/25 08/27/25 08/28/25 23:59 23:59 23:59 23:59 Intake Total 600 1550 1330 300 Output Total 2100 011 373 2303 Balance -1500 700 630 -700 Meds/Results Medications: Active Medications Generic Name Dose Route Start Last Admin Trade Name Freq PRN Reason Stop Dose Admin Acetaminophen 650 mg 08/22/25 23:22 08/27/25 04:37 Acetaminophen 325 Mg Tablet PO 650 mg Q4H PRN Administration Mild Pain (1-3) or Fever Acetylcysteine 200 mg 08/23/25 14:00 08/28/25 07:49 Acetylcysteine 20% Inhal Soln 800 Mg/4 Ml Vial INHALATION 200 mg Q6HRT GIOVANNY Administration Albuterol/Ipratropium 3 ml 08/23/25 08:00 08/28/25 07:48 Ipratropium 0.5 Mg/Albuterol Sulfate 2.5 Mg Ampul.Neb 3 Ml INHALATION 3 ml Q6HRT GIOVANNY Administration Aspirin 81 mg 08/23/25 09:00 08/28/25 08:17 Aspirin 81 Mg Enteric Tablet PO 81 mg DAILY GIOVANNY Administration Azithromycin 250 mg 08/24/25 09:00 08/28/25 08:16 Azithromycin 250 Mg Tablet PO 250 mg DAILY GIOVANNY Administration Baclofen 10 mg 08/24/25 09:45 08/27/25 04:37 Baclofen 10 Mg Tablet PO 10 mg Q8H PRN Administration Muscle Spasm Baclofen 10 mg 08/26/25 21:00 08/27/25 20:42 Baclofen 10 Mg Tablet PO 10 mg HS GIOVANNY Administration Bisacodyl 10 mg 08/23/25 04:05 Bisacodyl 10 Mg Suppository RECTAL DAILY PRN Constipation Bupropion HCl 150 mg 08/23/25 09:00 08/28/25 08:16 Bupropion Hcl Sr (12 Hr) 150 Mg Tab PO 150 mg Q12HR GIOVANNY Administration Ethambutol HCl 1,200 mg 08/23/25 09:00 08/28/25 08:16 Ethambutol Hcl 400 Mg Tablet PO 1,200 mg DAILY GIOVANNY Administration Fenofibrate 145 mg 08/23/25 09:00 08/28/25 08:17 Fenofibrate 145 Mg Tablet PO 145 mg QAM GIOVANNY Administration Furosemide 20 mg 08/26/25 10:55 08/28/25 08:17 Furosemide 20 Mg Tablet PO 20 mg DAILY GIOVANNY Administration Guaifenesin 1,200 mg 08/23/25 09:00 08/28/25 08:17 Guaifenesin 12 Hr 600 Mg Tabcr PO 1,200 mg Q12HR GIOVANNY Administration Lorazepam 0.5 mg 08/26/25 13:03 08/27/25 23:48 Lorazepam (*Crx) 0.5 Mg Tablet PO 0.5 mg DAILY PRN Administration Anxiety Metoprolol Tartrate 50 mg 08/23/25 21:00 08/27/25 20:42 Metoprolol Tartrate 50 Mg Tab PO 50 mg HS GIOVANNY Administration Morphine Sulfate 30 mg 08/24/25 09:45 08/27/25 09:11 Morphine Sulfate (*Crx) 30 Mg Tabcr PO 30 mg Q12H PRN Administration Pain Ondansetron HCl 4 mg 08/22/25 23:22 Ondansetron Inj 4 Mg/2 Ml Vial IV PUSH Q4H PRN Nausea Pantoprazole Sodium 40 mg 08/23/25 09:00 08/28/25 08:17 Pantoprazole 40 Mg Tablet PO 40 mg QAM GIOVANNY Administration Polyethylene Glycol 17 gm 08/24/25 09:37 08/24/25 10:14 Polyethylene Glycol 3350 17 Gm Powd.Pack PO 17 gm QAM PRN Administration Constipation Rifampin 300 mg 08/23/25 14:00 08/28/25 08:16 Rifampin 300 Mg Capsule PO 300 mg Q12HR GIOVANNY Administration Senna/Docusate Sodium 1 tab 08/25/25 10:25 08/28/25 08:16 Senna/Docusate Sodium Tablet PO 1 tab BID GIOVANNY Administration Sertraline HCl 50 mg 08/23/25 09:00 08/28/25 08:16 Sertraline Hcl 50 Mg Tablet PO 50 mg DAILY GIOVANNY Administration Tamsulosin HCl 0.4 mg 08/23/25 09:00 08/28/25 08:16 Tamsulosin Hcl 0.4 Mg Capsule PO 0.4 mg BID GIOVANNY Administration Radiology Results: ITS Impressions Head CT 08/23/25 07:34 IMPRESSION: 1. Stable moderate nonspecific cerebral white matter disease, which likely represents chronic small vessel ischemic disease. Chest CT 08/23/25 09:14
--- NOTE | 2025-08-28 10:59 | PCNFU ---
Nutrition Follow-Up Complete: Severe protein calorie malnutrition related to chronic loss of appetite, increased needs from pressure injury as evidenced by intakes<75% needs >1 month; weight loss 6%/1 month; severe muscle wasting and fat loss; deep tissue pressure injury Goal:Intakes >75% Pt meeting goal, continue with same goal Pt current nutrition is Heart healthy, NAHOMI BID, Ensure shakes BID, Nutrition ice cream BID. Nutrition recommendation: discontinue NAHOMI per pt request Last recorded weight is 67.6 kg. Bowel Motility: +BM 08/25 Labs Reviewed: Hgb:8.5, HCT:27.5, Alb:2.8, NA:130 Meds Noted: protonix, lasix Skin: DTPI to buttocks Additional Notes: Pt continues on a heart healthy diet, intake 75-100%, pt reports good appetite, drinking about 50% of Ensures because he is full with eating most of his meals. Pt does not like NAHOMI and will not drink - will d/c. Agree with orders. Monitoring intakes, weights, labs, skin, supplement tolerance, plan of care Follow up in 7 days
--- NOTE | 2025-08-28 14:33 | PM.DS ---
DS: Admitting Diagnosis Discharge Date 08/28/25 Admitting Diagnosis - pneumonia - acute on chronic combined systolic and diastolic CHF - AMS - COPD - chronic respiratory failure with hypoxia - depression - anxiety - SNEHA DS: Discharge Diagnosis Discharge Diagnosis (1) Pneumonia: Qualifiers: Pneumonia type: due to unspecified organism Laterality: right Lung location: unspecified part of lung Qualified Code(s): J18.9 - Pneumonia, unspecified organism Code(s): J18.9 - Pneumonia, unspecified organism Status: Acute (2) Combined systolic and diastolic congestive heart failure: Qualifiers: Heart failure chronicity: acute on chronic Qualified Code(s): I50.43 - Acute on chronic combined systolic (congestive) and diastolic (congestive) heart failure Code(s): I50.40 - Unspecified combined systolic (congestive) and diastolic (congestive) heart failure Status: Acute (3) AMS (altered mental status): Code(s): R41.82 - Altered mental status, unspecified Status: Acute (4) COPD (chronic obstructive pulmonary disease): Code(s): J44.9 - Chronic obstructive pulmonary disease, unspecified Status: Acute (5) Chronic hypoxic respiratory failure, on home oxygen therapy: Code(s): J96.11 - Chronic respiratory failure with hypoxia; Z99.81 - Dependence on supplemental oxygen Status: Acute (6) Depression: Code(s): F32.A - Depression, unspecified Status: Acute (7) Anxiety disorder, unspecified: Code(s): F41.9 - Anxiety disorder, unspecified Status: Acute (8) HTN (hypertension): Qualifiers: Hypertension type: primary hypertension Qualified Code(s): I10 - Essential (primary) hypertension Code(s): I10 - Essential (primary) hypertension Status: Chronic (9) Hyponatremia: Code(s): E87.1 - Hypo-osmolality and hyponatremia Status: Acute (10) SANDI (acute kidney injury): Code(s): N17.9 - Acute kidney failure, unspecified Status: Acute (11) SNEHA (mycobacterium avium-intracellulare): Code(s): A31.0 - Pulmonary mycobacterial infection Status: Acute (12) Abnormal urinalysis: Code(s): R82.90 - Unspecified abnormal findings in urine Status: Acute DS: Summary Hospital Course Reason for hospitalization: - pneumonia - acute on chronic combined systolic and diastolic CHF - AMS - COPD - chronic respiratory failure with hypoxia - depression - anxiety - SNEHA Hospital Course: Patient is an 80-year-old male with past medical history of COPD, chronic respiratory failure with hypoxia on 4 L nasal cannula, MO infection, combined CHF a presented to the emergency department from his nursing facility with altered mental status. Per documentation his SpO2 was found to be 75% on his home oxygen. In the ED, WBC 11, hemoglobin 7.3, sodium 130, creatinine 1.39, chest x-ray with small right pleural effusion, linear and reticular opacities in the right mid bilateral lower lung zones. UA with positive nitrates, 1+ LE. Patient was started on IV cipro and admitted for suspected UTI and possible pneumonia. In regards to pneumonia, patient has had multiple admissions for recurrent pneumonia and has history of SNEHA infection. On admission, WBC 11, afebrile. Patient was on documented home O2 requirement of [address] Chest with moderate emphysema, diffuse lung disease with a peripheral and lower lung predominance with worsening in posterior segment RUL, chronic small right pleural effusion and bilateral pleural thickening. Pulmonology was consulted who felt CT chest changes mostly chronic in nature related to mucus plugging and less likely an acute bacterial process. ID was consulted in stopped Cipro and started meropenem for a 5 day course. Recommended to continue treatment for SNEHA with daily azithromycin, ethambutol and rifampin. Blood cultures and sputum cultures with no growth. Patient also received IV diuresis for suspected acute on chronic systolic and diastolic CHF. Patient had significant improvement in his respiratory symptoms and was weaned to 1 L nasal cannula on discharge. He was transitioned to p.o. Lasix. Noted that chest x-ray on day of discharge noted possible worsening pneumonia, however clinically patient was greatly improved. Discussed findings with pulmonology and ID who both cleared patient for discharge without further antibiotics. Pulmonology recommended to continue DuoNebs, vest therapy, flutter valve. Follow-up in the pulmonology clinic in 4 weeks. ID recommended follow-up via telehealth in 2 weeks. In regards to altered mental status, suspect patient's presentation likely related to hypoxia and infection. Initially thought to be UTI however urine culture with no growth. Patient's mental status rapidly improved. Patient was alert and oriented x4 on day of discharge. Patient also had SANDI on admission with creatinine 1.39. Patient received IV Lasix and fluids in the ED. Home sulindac was stopped. Creatinine improved to baseline. Recommended that nursing facility obtain repeat BMP in 3 days. Sodium remained 130, near baseline. Patient was discharged to his nursing facility in stable condition. Status at Discharge Overall status at discharge: patient is back to baseline Time Spent with Patient Time attestation: Total time spent providing and/or coordinating discharge services: Time spent: Greater than 30 minutes Exam Narrative: General: NAD. Appears chronically debilitated. Eyes: EOMI ENT: neck supple Cardiovascular: Regular rate and rhythm Respiratory: occasional scattered rhonchi, respirations even and unlabored on 2L NC Gastrointestinal: Soft, non tender Genitourinary: no suprapubic tenderness Musculoskeletal: No edema Skin: warm, dry Neuro: Alert and oriented x4 Psych: Mood appropriate DS: Data Data Completed and Pending Completed studies during hospitalization: ITS Impressions Chest X-Ray 08/22/25 20:48 IMPRESSION: 1. No significant change in a small right pleural effusion or of linear and reticular opacities in the right mid and bilateral lower lung zones which could represent atelectasis/scarring and/or pneumonia. Head CT 08/23/25 07:34 IMPRESSION: 1. Stable moderate nonspecific cerebral white matter disease, which likely represents chronic small vessel ischemic disease. Chest CT 08/23/25 09:14 IMPRESSION: 1. Moderate emphysema. 2. Diffuse lung disease with a peripheral and lower lung predominance with worsening in posterior segment right upper lobe, likely a combination of rounded atelectasis and pneumonia. 3. Chronic small right pleural effusion. Chronic bilateral pleural thickening. 4. Small sliding hiatal hernia. Chest X-Ray 08/25/25 12:27 Impression: Bilateral pneumonia Chest X-Ray 08/28/25 09:33 Impression: Bilateral pneumonia. The findings appear progressed compared to the previous study Labs on day of discharge: Preliminary micro results at discharge 08/22/25 22:42 Blood Culture - Preliminary Blood 08/22/25 22:42 Blood Culture - Preliminary Blood 08/23/25 16:24 Sputum Culture - Preliminary Sputum 08/23/25 16:24 Streptococcus pneumoniae Ag Screen - Preliminary Nasal - Nasopharyngeal Sterile Body Fluid Culture - Preliminary Organism Identification - Preliminary Discharge Plan Discharge Attending physician on discharge: Delivn Rivera Consulting providers: Patricia Jeffers; Mack Blackmon; Salas Gottlieb Discharging Clinician: Patricia Jeffers Anticipated Discharge Date/Time: 08/28/25 14:20 Patient Disposition: NH [facility]/Asst Living Activity: as tolerated Diet: regular Discharge Instructions: Patient was admitted for pneumonia and finished a course of antibiotics in the hospital. No further antibiotics warranted. Patient was started on Lasix due to concerns for pulmonary edema. Continue Lasix 20 mg daily. Repeat BMP, mag and CBC in 3 days. Patient needs to follow-up with Dr. Gottlieb (pulmonology) in 4 weeks and infectious disease ([phone]) for telehealth visit in 2 weeks. Patient is to remain on azithromycin, ethambutol and rifampin daily for SNEHA until infectious disease recommends stopping. Per Dr. Gottlieb: from a pulmonary perspective patient can be discharged on these pulmonary medicines: DuoNebs q.i.d. Guaifenesin 1200 mg p.o. b.i.d. Vest therapy twice a day Cornet flutter valve q.2 hours while awake Oxygen per lobe L as protocol. Currently the patient is require 1 L nasal cannula at rest with saturations 95%. Patient Instructions: Antibiotic Form Patient Language: Chinese Stand Alone Forms: General Discharge Information Follow-up/Referrals: Mack Blackmon MD [Physician, Infectious Disease] - Call for Appointment Referral Note: call [phone] for telehealth follow-up in 2 weeks Salas Gottlieb MD [Physician, Pulmonology] - Call for Appointment Referral Note: 4 weeks Discharge Medications: New azithromycin [Zithromax] 250 mg Tablet 250 mg PO DAILY Qty: 30 0RF rifampin 300 mg Capsule 300 mg PO Q12HR Qty: 60 0RF furosemide 20 mg Tablet 20 mg PO DAILY Qty: 30 0RF ipratropium-albuterol 0.5 mg-3 mg(2.5 mg base)/3 mL solution for nebulization 3 ml inhalation Q6H Qty: 90 0RF Continued (DME) nebulizer and compressor Device See Rx Instructions .Route Qty: 1 0RF Rx Instructions: As directed (DME) nebulizer accessories Kit See Rx Instructions .Route Qty: 1 0RF Rx Instructions: As directed ethambutol 400 mg tablet 1,200 mg PO DAILY tamsulosin 0.4 mg capsule 0.4 mg PO BID esomeprazole magnesium 20 mg capsule,delayed release(DR/EC) 20 mg PO DAILY guaifenesin [Mucus Relief ER] 600 mg Tablet Extended Release 12hr 1,200 mg PO Q12HR Qty: 60 0RF ipratropium-albuterol 0.5 mg-3 mg(2.5 mg base)/3 mL Solution For Nebulization 3 ml inhalation Q6HRT Qty: 180 0RF baclofen 10 mg Tablet 10 mg PO HS Qty: 30 0RF morphine 30 mg tablet extended release 30 mg PO Q12H PRN (Reason: pain) 3 Days Qty: 6 0RF benzonatate 100 mg Capsule 200 mg PO TID PRN (Reason: Cough) Qty: 30 0RF olopatadine [Eye Allergy Itch Relief] 0.2 % drops 1 drp EACH EYE DAILY PRN (Reason: itching) Qty: 5 0RF lorazepam [Ativan] 0.5 mg tablet 0.5 mg PO DAILY MDD 0.5 PRN (Reason: anxiety) Qty: 14 0RF aspirin 81 mg Tablet,Delayed Release (Dr/Ec) 81 mg PO DAILY Qty: 90 0RF metoprolol tartrate [Lopressor] 50 mg tablet 50 mg PO HS magnesium hydroxide [Milk of Magnesia] 400 mg/5 mL suspension 30 ml PO HS PRN (Reason: constipation) Rx Instructions: if no bm x3 days bisacodyl 10 mg suppository 10 mg RECTAL DAILY PRN (Reason: constipation) Rx Instructions: if no results from mom cilcitriol capsule capsule See Rx Instructions .ROUTE .COMPLEX Rx Instructions: 0.25 mcg po daily; baclofen 10 mg tablet 10 mg PO Q8H PRN (Reason: muscle spasm) naloxone [Narcan] 4 mg/actuation spray,non-aerosol 4 mg intranasal Q2M Rx Instructions: spray 1 dose into ONE nostril; alternate nostrils w each dose until help arrives fenofibrate 160 mg tablet 160 mg PO DAILY Qty: 90 2RF albuterol sulfate 90 mcg/actuation HFA aerosol inhaler 2 puff INHALATION Q4H PRN (Reason: Shortness Of Breath Or Wheezing) Qty: 8.5 5RF nitroglycerin 0.4 mg tablet, sublingual 0.4 mg sublingual Q5M PRN (Reason: chest pain) Qty: 25 3RF Rx Instructions: do not exceed 3 doses per episode sertraline 50 mg tablet 50 mg PO DAILY Qty: 90 3RF bupropion HCl 150 mg tablet sustained-release 12 hr 150 mg PO BID Qty: 180 2RF Changed trazodone 100 mg tablet 100 mg PO HS PRN (Reason: Insomnia) Qty: 90 1RF Discontinued sulindac 200 mg tablet 200 mg PO BID Qty: 180 1RF Date of admission: 08/22/25 23:23 Primary Care Provider: Rogelio Moeller Admitting Provider: Delvin Rivera Attending physician on admission: Delvin Rivera Condition: Stable
--- NOTE | 2025-08-28 16:00 | PC.NURSE ---
RN called [facility] to give report on patient. Academic Adviser states the nurses did not answer and she would give them the number to call back to get report. This RN stated that the patient would be put on the ambulance list and headed there way. The facility did not call back. Report faxed, and given to EMS.
== END 2025-08-28 19:12 | DRG 177 ==
LOC: ANHED 21:13 → ANHIMU 23:58 → ANH3MEDSUR 08-23 16:15 → ANHIMU 08-29 15:54
PROVIDERS: Internal Medicine Pulmonary Disease; Admitting Provider Internal Medicine; Emergency Provider Student in an Organized Health Care Education/Training Program; PCP Family Medicine; Visit Provider Physician Assistant
DX: J15.1 Pneumonia due to Pseudomonas (principal); E43 Unspecified severe protein-calorie malnutrition; J96.21 Acute and chronic respiratory failure with hypoxia; I50.43 Acute on chronic combined systolic (congestive) and diastolic (congestive) heart failure; T17.890A Other foreign object in other parts of respiratory tract causing asphyxiation, initial encounter; F33.9 Major depressive disorder, recurrent, unspecified; I13.0 Hypertensive heart and chronic kidney disease with heart failure and stage 1 through stage 4 chronic kidney disease, or unspecified chronic kidney disease; E87.1 Hypo-osmolality and hyponatremia; N17.9 Acute kidney failure, unspecified; A31.0 Pulmonary mycobacterial infection; N18.30 Chronic kidney disease, stage 3 unspecified; J44.9 Chronic obstructive pulmonary disease, unspecified; K21.9 Gastro-esophageal reflux disease without esophagitis; I25.10 Atherosclerotic heart disease of native coronary artery without angina pectoris; I35.0 Nonrheumatic aortic (valve) stenosis; I71.40 Abdominal aortic aneurysm, without rupture, unspecified; E53.8 Deficiency of other specified B group vitamins; E78.5 Hyperlipidemia, unspecified; N40.0 Benign prostatic hyperplasia without lower urinary tract symptoms; M48.061 Spinal stenosis, lumbar region without neurogenic claudication; M19.90 Unspecified osteoarthritis, unspecified site; Z20.822 Contact with and (suspected) exposure to COVID-19; G25.81 Restless legs syndrome; G25.0 Essential tremor; F41.9 Anxiety disorder, unspecified; Z79.2 Long term (current) use of antibiotics; Z86.12 Personal history of poliomyelitis; Z95.5 Presence of coronary angioplasty implant and graft; I25.2 Old myocardial infarction; Z99.81 Dependence on supplemental oxygen; Z87.891 Personal history of nicotine dependence; Z79.82 Long term (current) use of aspirin; Z68.21 Body mass index [BMI] 21.0-21.9, adult
CPT/HCPCS: 36415; 70450; 71045; 71260; 80048; 80053; 81001; 82803; 83605; 83735; 83880; 84145; 85025; 85610; 85730; 86140; 86738; 87040; 87070; 87086; 87186; 87205; 87449; 87637; 87641; 87899; 93005; 93306; 94640; 94668; 94669; 96360; 97110; 97162; 99285; A9270; J0744; J1938; J2185; J7120; Q9967

== ENCOUNTER 2025-11-11 17:51 | Emergency (ER) | payer MEDICARE, SELFPAY ==
--- NOTE | ~2025-11-11 | XR_ITS ---
EXAMINATION: XR chest 1V portable DATE: 11/11/2025 18:18 INDICATION: Shortness of breath. TECHNIQUE: A single frontal view of the chest was obtained. COMPARISON: Chest x-ray dated 10/08/2025. CT scan dated 08/22/2025. FINDINGS: Atherosclerotic aorta. Emphysematous lungs. Persistent patchy opacity of right lung bases and blunting of costophrenic angle similar to prior imaging studies suggestive of rounded atelectasis and small pleural effusion. Left lung is relatively clear. IMPRESSION: 1. Emphysematous lungs and atherosclerotic aorta. Probable chronic opacity of right lower lobe. Small right pleural effusion. Reviewed, dictated and finalized at location T. RCHARGER REPAIR SUPERVISOR IMPRESSION: 1. Emphysematous lungs and atherosclerotic aorta. Probable chronic opacity of r ight lower lobe. Small right pleural effusion.
[2025-11-11 17:57] VITALS: BP 142/56; PULSE 78; RESP 20; TEMP 36.8; O2SAT 98
--- NOTE | 2025-11-11 18:02 | ED_ITS ---
HPI - SOB/Dyspnea General Chief Complaint: Shortness of Breath/Dyspnea Stated Complaint: weak/lethargic Time Seen by Provider: 11/11/25 18:02 Source: patient and EMS Mode of arrival: EMS History of Present Illness HPI Narrative: 80 YEARS OLD WHITE MALE CAME FROM SKILLED NURSING BY AMBULANCE COMPLAINING OF SHORTNESS OF BREATH AND COUGHING. HISTORY OF CHRONIC SHORTNESS OF BREATH GOT WORSE TODAY. HE DENIES ANY FEVER, CHILLS, NAUSEA, VOMITING, CHEST PAIN, BACK PAIN. PATIENT ON CHRONIC 3 L-4 L OXYGEN ALL THE TIME. FAMILY REPORTED THAT PATIENT BEEN WEAK CAR LATELY THAN USUAL. HISTORY OF DEPRESSION, ANXIETY, HYPERTENSION, CONGESTIVE HEART FAILURE, DYSPNEA ON EXERTION, HYPERLIPIDEMIA, GERD, DYSPHAGIA, HYPONATREMIA, URINARY TRACT INFECTION, CHRONIC ANEMIA, DEMENTIA, COPD BRONCHIECTASIS PLEURAL EFFUSION, QUIT SMOKING FEW YEARS AGO Related Data Home Medications ?Medication ?Instructions ?Recorded ?Confirmed ?Last Taken ?Type esomeprazole magnesium 20 mg 20 mg PO DAILY 06/15/25 1 12/03/24 07/18/25 History capsule,delayed release ethambutol 400 mg tablet 1,200 mg PO DAILY 06/15/25 1 12/03/24 07/18/25 History tamsulosin 0.4 mg capsule 0.4 mg PO BID 06/15/2510/0307/18/25 History baclofen 10 mg tablet 10 mg PO Q8H PRN muscle spas m 07/29/25 10/03/25 Unknown History bisacodyl 10 mg rectal suppository 10 mg RECTAL DAILY PRN constipation 07/29/25 10/03/25 Unknown History cilcitriol capsule See Rx Instructions .Route 0 07/29/25 10/03/25 Unknown History .COMPLEX hypocalcemia magnesium hydroxide 400 mg/5 mL 30 ml PO HS PRN consti pation 07/29/25 10/03/25 Unknown History oral suspension (Milk of Magnesia) metoprolol tartrate 50 mg tablet 50 mg PO HS 07/29/25 10/03/25 Unknown History (Lopressor) naloxone 4 mg/actuation nasal 4 mg intranasal Q2M 12/1710/03/25 Unknown History spray (Narcan) Allergies Allergy/AdvReac Type Severity Reaction Status Date / Time clonazepam AdvReac Severe Drowsy Verified 10/03/25 10:43 roflumilast (From [place]) AdvReac Severe Diarrhea Verified 10/03/25 10:43 Review of Systems 2 Review of Systems: All systems reviewed & are unremarkable except as noted in HPI and below PMFSH Past Medical History Medical History Pneumonia Anxiety Physical deconditioning NSVT (nonsustained ventricular tachycardia) Dysfunction of left eustachian tube Leukocytosis Heart failure with mildly reduced ejection fraction Chronic pulmonary aspergillosis Major depressive disorder, recurrent, mild Left foot drop Chronic kidney disease, stage 3 Spinal stenosis, lumbar region without neurogenic claudication Ischemic cardiomyopathy Echocardiogram 09/2021: Mildly reduced left ventricular systolic function EF of 45-50%, grade 1 diastolic dysfunction, inferior wall inferior septal wall basal inferior wall and mid inferior lateral wall hypokinesis with mild left atrial and large SVT (supraventricular tachycardia) 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 History of tobacco use Polio (1951) Other chronic pain Aortic stenosis Mild - Echo 05/15/2022 NSTEMI (non-ST elevated myocardial infarction) (08/2019) Atherosclerotic heart disease of [place] coronary artery without angina pectoris Abdominal aortic aneurysm, without rupture Seen on CT scan on 02/09/2018 Restless legs syndrome Surgical History Surgical History History of tonsillectomy and adenoidectomy History of repair of rotator cuff bilateral History of colonoscopy with polypectomy History of bowel resection due to obstruction Presence of coronary angioplasty implant and graft History of coronary artery stent placement X2 History of mandibular surgery (1986) reconstructive surgery right mandible related to cancer Family History Family History Mother Diabetes mellitus Acute myocardial infarction Father Colon cancer COPD (chronic obstructive pulmonary disease) Sibling Colon cancer Acute myocardial infarction Lung cancer COPD (chronic obstructive pulmonary disease) Sibling COPD (chronic obstructive pulmonary disease) Sibling Congestive heart failure Sibling Dementia Social History Social History Social History: Surrogate medical decision maker: Yessi Morgan, daughter. Code status: Full code. But he states he would not want to be on a ventilator long-term have a tracheostomy or feeding tube. Smoking packs per day: 2 Smoking cigarettes per day: 40.0 Years smoked: 60 Smoking pack-years: 120.00 Smoking status: Former smoker Second hand tobacco smoke exposure: No Alcohol intake: never Substance use: never Substance use type: does not use Other substance usage details: quit alcohol in 2010 Last use: Last alcohol use 2010 Lack of Transportation: No Lack of Food: Never True Current Housing: I Have Housing Concerned About Future Housing: No Difficulty Paying Gas/Electric Bills: No Difficulty Paying for Meds: No Currently Unemployed: No Education: High School Diploma/GED Difficulty w/ Childcare or Family Care: No Living arrangements: with family Additional living arrangements comments: . Lives in [place] with son and [id number]. 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: retired Additional occupation/education comments: [employer] Spiritual care concerns: No Agree to blood products: Yes Exam 2 Narrative: GENERAL APPEARANCE: WELL-DEVELOPED, WELL-NOURISHED SKIN: NORMAL COLOR HEAD: NORMOCEPHALIC, NONTRAUMATIC EYES: CLEAR CONJUNCTIVA ENT: OROPHARYNX NORMAL, EARS NORMAL, NOSE NORMAL NECK: SUPPLE, NONTENDER CHEST AND RESPIRATORY: AIRWAY PATENT, NO RESPIRATORY DISTRESS, NO ACCESSORY MUSCLE USE, DIMINUTION OF AIR ENTRY BILATERALLY, SCATTERED DRY RALES ALL OVER MAINLY AT THE BASES HEART: REGULAR RATE/RHYTHM ABDOMEN: SOFT, NONTENDER, NO ORGANOMEGALY, QUIET BOWEL SOUNDS VASCULAR: NORMAL PERIPHERAL PULSES, NORMAL CAPILLARY REFILL. MUSCULOSKELETAL: NORMAL RANGE OF MOTION, NONTENDER BACK NEUROLOGIC: ALERT AND ORIENTED ?3, LABOR UTILIZATION SUPERINTENDENT IS NORMAL TESTED, NO GROSS MOTOR DEFICIT Course Vital Signs Vital signs: Vital Signs Temperature 36.8 C 11/11/25 17:57 Pulse Rate 78 11/11/25 17:57 Respiratory Rate 20 11/11/25 17:57 Blood Pressure 142/56 H 11/11/25 17:57 Pulse Oximetry 98 11/11/25 17:57 Oxygen Delivery Nasal Cannula 11/11/25 17:57 Oxygen Flow Rate 3 11/11/25 17:57 Temperature 36.8 C 11/11/25 17:57 Pulse Rate 77 11/11/25 18:22 Respiratory Rate 17 11/11/25 18:22 Blood Pressure 142/56 H 11/11/25 17:57 Pulse Oximetry 96 11/11/25 18:16 Oxygen Delivery Nasal Cannula 11/11/25 18:16 Oxygen Flow Rate 4 11/11/25 18:16 MDM MDM Narrative Medical decision making narrative: PATIENT CAME WITH SHORTNESS OF BREATH VITAL SIGNS ARE STABLE PHYSICAL EXAMINATION SHOWING DIMINUTION OF AIR ENTRY BILATERALLY SCATTERED DRY RALES BILATERALLY DIFFERENTIAL DIAGNOSIS INCLUDES COPD EXACERBATION, UPPER RESPIRATORY VIRAL INFECTION, PNEUMONIA, PLEURAL EFFUSION, CORONARY ARTERY DISEASE, CONGESTIVE HEART FAILURE BLOOD WORKUP TODAY INCLUDES CBC, CMP, TROPONIN, PROBNP, BLOOD CULTURE, COAGS SHOWED INSIGNIFICANT ABNORMALITY COMPARED TO THE PREVIOUS LABS, ABG ON 3 L SHOWED OXYGEN SATURATION OXYGEN SATURATION 96.5%. CHEST X-RAY SHOWED CHRONIC OPACIFICATION OF THE RIGHT LOWER LOBE, EMPHYSEMA EKG ON ARRIVAL SHOWED NORMAL SINUS RHYTHM AT 77 BEATS PER MINUTE, Differential Diagnosis Differential Diagnosis: ABOVE Medical Records I have reviewed the following patient records and this information was taken into consideration when formulating the assessment and plan.: previous labs, previous ER visits, previous hospitalizations and previous clinic visits Lab Data 11/11/25 18:34 11/11/25 18:35 Labs: Lab Results 11/11/25 11/11/25 11/11/25 Range/Units 18:34 18:35 18:55 WBC 9.8 (4.5-10.0) K/mm3 RBC 3.88 L (4.6-6.20) M/mm3 Hgb 10.9 L (14.0-18.0) g/dL Hct 34.6 L (42.0-52.0) % MCV 89.2 (80-100) fl MCH 28.1 (26-34) pg MCHC 31.5 L (32-36) g/dl RDW 15.9 H (11.5-14.5) % Plt Count 133 L D (150-375) k/mm3 MPV 11.8 H (7.4-10.4) fl Immature Gran % (Auto) Not Reportable Neut % (Auto) Not Reportable Lymph % (Auto) Not Reportable [place] % (Auto) Not Reportable Eos % (Auto) Not Reportable Baso % (Auto) Not Reportable Lymph # (Auto) Not Reportable [place] # (Auto) Not Reportable Eos # (Auto) Not Reportable Baso # (Auto) Not Reportable Abs Immat Gran (auto) Not Reportable Absolute Neuts (auto) Not Reportable Absolute Nucleated RBC Not Reportable Total Counted 100 Neutrophils % (Manual) 87 H (46-73) % Band Neutrophils % 5 (0-6) % Lymphocytes % (Manual) 3.0 L (18-44) % Monocytes % (Manual) 5 (3-9) % Nucleated RBC % Not Reportable Abs Neuts (Manual) 9.01 H (1.3-6.7) K/mm3 Abs Lymphs (Manual) 0.29 L (1.1-4.5) K/mm3 Abs Monocytes (Manual) 0.49 (0.1-0.90) K/mm3 Smudge Cells Present Platelet Estimate Decreased (Adequate) Giant Platelets Present % Immature Plt Fraction 8.7 (0.9-11.2) % Anisocytosis 1+ Microcytosis 1+ (NORMAL) Schistocytes None seen PT Pending INR Pending APTT Pending Sodium 136 L (137-145) mmol/L Potassium 4.2 (3.4-5.0) mmol/L Chloride 97 L (98-107) mmol/L Carbon Dioxide 31 H (22-30) mmol/L Anion Gap 8 (4-12) mmol/L BUN 23 H (9-20) mg/dL Creatinine 1.08 (0.7-1.3) mg/dL Estim Creat Clear Calc 43 ml/min Estimated GFR > 60 (59 - ) Glucose 110 (65-110) mg/dL Lactic Acid 1.1 (0.7-2.0) mmol/L Calcium 9.0 (8.4-10.2) mg/dL Magnesium 1.7 (1.6-2.3) mg/dL Total Bilirubin 0.6 (0.2-1.3) mg/dL AST 46 (17-59) U/L ALT 20 (6-50) U/L Alkaline Phosphatase 73 (38-126) U/L Troponin I < 0.012 (0.000-0.034) ng/mL NT-Pro-B Natriuret Pep 761 H (19.9-100) pg/mL Total Protein 7.5 (6.3-8.2) g/dL Albumin 4.0 (3.5-5.1) g/dL Influenza A (RT-PCR) Negative (Negative) Influenza B (RT-PCR) Negative (Negative) RSV (RT-PCR) Negative (Negative) SARS-CoV-2 RNA (RT-PCR) Negative (Negative) ABG Data ABG results: 11/11/25 18:26 Puncture Site Right radial ABG pH 7.399 ABG pCO2 45.5 H ABG pO2 86.2 ABG PO2/FiO2 Ratio 3.08 ABG HCO3 27.5 H ABG O2 Saturation 96.5 ABG O2 Content 14.9 L ABG Base Excess 2.3 A-a Gradient 59.8 Oxyhemoglobin 95.7 Total Hemoglobin 11.0 L O2 Delivery Device Not Reportable O2 Liters/Min Not Reportable FiO2 28 Imaging Data Radiologist's impression: ITS Impressions Chest X-Ray 11/11/25 18:19 IMPRESSION: 1. Emphysematous lungs and atherosclerotic aorta. Probable chronic opacity of right lower lobe. Small right pleural effusion. ECG Data EKG #1: Attestation: I personally reviewed and interpreted this ECG as follows: ECG completion date: 11/11/25 Interpretation: NORMAL SINUS RHYTHM 77 BEATS PER MINUTE, LEFT ATRIAL ENLARGEMENT, INCOMPLETE RIGHT BUNDLE-BRANCH BLOCK COMPARED TO EKG ON 2024 ATRIAL ABNORMALITY NOW PRESENT, INCOMPLETE RIGHT BUNDLE BRANCH BLOCK NOW PRESENT, FIRST-DEGREE AV BLOCK NO LONGER PRESENT RIGHT BUNDLE BRANCH BLOCK NO LONGER PRESENT Critical Care Time Critical Care Time Critical Care Time: No Discharge Plan Discharge Clinical Impression: COPD exacerbation Patient Disposition: NH Halfway/Asst Living Condition: Improved Instructions: Antibiotic Form, COPD (Chronic Obstructive Pulmonary Disease) (DC) Additional Instructions: RETURN IF SYMPTOMS ARE WORSENING , CALL YOUR FAMILY PHYSICIAN FOR APPOINTMENT, TAKE TYLENOL NEEDED FOR ACHES AND PAIN, CONTINUE HOME MEDICATIONS. Patient Language: Spanish Prescriptions: New doxycycline monohydrate 100 mg capsule 100 mg PO BID Qty: 14 0RF prednisone 20 mg tablet 40 mg PO DAILY 5 Days Qty: 10 0RF No Action (DME) nebulizer and compressor Device See Rx Instructions .Route Qty: 1 0RF Rx Instructions: As directed (DME) nebulizer accessories Kit See Rx Instructions .Route Qty: 1 0RF Rx Instructions: As directed ethambutol 400 mg tablet 1,200 mg PO DAILY tamsulosin 0.4 mg capsule 0.4 mg PO BID esomeprazole magnesium 20 mg capsule,delayed release(DR/EC) 20 mg PO DAILY guaifenesin [Mucus Relief ER] 600 mg Tablet Extended Release 12hr 1,200 mg PO Q12HR Qty: 60 0RF ipratropium-albuterol 0.5 mg-3 mg(2.5 mg base)/3 mL Solution For Nebulization 3 ml inhalation Q6HRT Qty: 180 0RF baclofen 10 mg Tablet 10 mg PO HS Qty: 30 0RF morphine 30 mg tablet extended release 30 mg PO Q12H PRN (Reason: pain) 3 Days Qty: 6 0RF benzonatate 100 mg Capsule 200 mg PO TID PRN (Reason: Cough) Qty: 30 0RF olopatadine [Eye Allergy Itch Relief] 0.2 % drops 1 drp EACH EYE DAILY PRN (Reason: itching) Qty: 5 0RF lorazepam [Ativan] 0.5 mg tablet 0.5 mg PO DAILY MDD 0.5 PRN (Reason: anxiety) Qty: 14 0RF aspirin 81 mg Tablet,Delayed Release (Dr/Ec) 81 mg PO DAILY Qty: 90 0RF metoprolol tartrate [Lopressor] 50 mg tablet 50 mg PO HS magnesium hydroxide [Milk of Magnesia] 400 mg/5 mL suspension 30 ml PO HS PRN (Reason: constipation) Rx Instructions: if no bm x3 days bisacodyl 10 mg suppository 10 mg RECTAL DAILY PRN (Reason: constipation) Rx Instructions: if no results from mom cilcitriol capsule capsule See Rx Instructions .ROUTE .COMPLEX Rx Instructions: 0.25 mcg po daily; baclofen 10 mg tablet 10 mg PO Q8H PRN (Reason: muscle spasm) naloxone [Narcan] 4 mg/actuation spray,non-aerosol 4 mg intranasal Q2M Rx Instructions: spray 1 dose into ONE nostril; alternate nostrils w each dose until help arrives azithromycin [Zithromax] 250 mg Tablet 250 mg PO DAILY Qty: 30 0RF rifampin 300 mg Capsule 300 mg PO Q12HR Qty: 60 0RF furosemide 20 mg Tablet 20 mg PO DAILY Qty: 30 0RF ipratropium-albuterol 0.5 mg-3 mg(2.5 mg base)/3 mL solution for nebulization 3 ml inhalation Q6H Qty: 90 0RF trazodone 100 mg tablet 100 mg PO HS PRN (Reason: Insomnia) Qty: 90 1RF fenofibrate 160 mg tablet 160 mg PO DAILY Qty: 90 2RF albuterol sulfate 90 mcg/actuation HFA aerosol inhaler 2 puff INHALATION Q4H PRN (Reason: Shortness Of Breath Or Wheezing) Qty: 8.5 5RF nitroglycerin 0.4 mg tablet, sublingual 0.4 mg sublingual Q5M PRN (Reason: chest pain) Qty: 25 3RF Rx Instructions: do not exceed 3 doses per episode sertraline 50 mg tablet 50 mg PO DAILY Qty: 90 3RF bupropion HCl 150 mg tablet sustained-release 12 hr 150 mg PO BID Qty: 180 2RF Follow-up/Referrals: Rogelio Moeller DO [Primary Care Provider, Family Practice]
--- NOTE | 2025-11-11 18:03 | ECG_ITS ---
Test Date: 2025-11-11 18:06:58 Measurements Intervals [place] Rate: 77 P: 44 SD: 188 QRS: -8 QRSD: 118 T: 7 QT: 404 QTc: 458 Interpretive Statements SINUS RHYTHM LEFT ATRIAL ENLARGEMENT BORDERLINE AV CONDUCTION DELAY INCOMPLETE RIGHT BUNDLE BRANCH BLOCK BORDERLINE ST-T WAVE ABNORMALITY- INFERIOR LEADS BASELINE ARTIFACT- III, V2-V3 BORDERLINE ECG Compared to ECG 08/22/2025 21:13:42 NO SIGNIFICANT CHANGE Electronically Signed On 11-12-2025 08:27:19 TRANSITIONS RN CARE COORDINATOR by Tim Mary D.O.
[2025-11-11 18:16] VITALS: O2SAT 96
[2025-11-11] MEDS: IPRATROPIUM 0.5 MG/ALBUTEROL SULFATE 2.5 MG (BASE) AMPUL.NEB 3 ML INHALATION (18:20)
[2025-11-11 18:22] VITALS: PULSE 77; RESP 17
[2025-11-11 18:31] LABS: Alveolar/Arterial O2 Gradient 59.8 mmHg; Fractional Inspired Oxygen 28 %; HCO3 ABG 27.5 mEq/l (22.0-26.0); Oxygen Content ABG 14.9 %vol (16.0-22.0); Oxygen Saturation ABG 96.5 % (95.0-100.0); PCO2 ABG 45.5 mmHg (35.0-45.0); PO2 ABG 86.2 mmHg (80.0-100.0); PO2 FiO2 Ratio Arterial Blood 3.08 %
[2025-11-11 18:33] LABS: Modified Allen's Test Pass; Site Drawn RIGHT RADIAL
[2025-11-11 18:45] LABS: Hematocrit 34.6 % (42.0-52.0); Hemoglobin 10.9 g/dL (14.0-18.0); Immature Platelet Fraction Pct 8.7 % (0.9-11.2); Mean Corpuscular HGB Conc 31.5 g/dl (32-36); Mean Corpuscular Hemoglobin 28.1 pg (26-34); Mean Corpuscular Volume 89.2 fl (80-100); Platelet Count Result 133 k/mm3 (150-375); Red Blood Count 3.88 M/mm3 (4.6-6.20); White Blood Count 9.8 K/mm3 (4.5-10.0)
--- NOTE | 2025-11-11 19:10 | PC.NURSE ---
Update given to pt. son over the phone. All questions answered. Quique [phone]
[2025-11-11 19:14] LABS: Alanine Aminotransferase 20 U/L (6-50); Albumin Level 4.0 g/dL (3.5-5.1); Alkaline Phosphatase 73 U/L (38-126); Anion Gap 8 mmol/L (4-12); Aspartate Amino Transferase 46 U/L (17-59); Bilirubin,Total 0.6 mg/dL (0.2-1.3); Blood Urea Nitrogen 23 mg/dL (9-20); Calcium 9.0 mg/dL (8.4-10.2); Carbon Dioxide 31 mmol/L (22-30); Chloride 97 mmol/L (98-107); Estimated CRCL calculation 43 ml/min; Estimated Glomerular Filt Rate > 60; Glucose 110 mg/dL (65-110); Magnesium 1.7 mg/dL (1.6-2.3); Potassium 4.2 mmol/L (3.4-5.0); Sodium 136 mmol/L (137-145); Total Protein 7.5 g/dL (6.3-8.2)
[2025-11-11 19:20] LABS: Influenza A QL RT-PCR Negative (Negative); Influenza B QL RT-PCR Negative (Negative); RSV RNA, RT-PCR Negative (Negative); SARS-CoV-2 RNA PCR Negative (Negative)
[2025-11-11 19:20] LABS: NT Pro B Type Natriuretic Pept 761 pg/mL (19.9-100); Troponin I < 0.012 ng/mL (0.000-0.034)
[2025-11-11 19:36] LABS: Anisocytosis 1+; Band Neutrophils Percent 5 % (0-6); Giant Platelets Present; Lymphocytes Absolute Manual 0.29 K/mm3 (1.1-4.5); Lymphocytes Percent Manual 3.0 % (18-44); Microcytosis 1+ (NORMAL); Monocytes Absolute Manual 0.49 K/mm3 (0.1-0.90); Monocytes Percent Manual 5 % (3-9); Neutrophils Absolute Manual 9.01 K/mm3 (1.3-6.7); Neutrophils Percent Manual 87 % (46-73); Schistocytes None Seen; Smudge Cells PRESENT; Total Cells Counted 100
[2025-11-11 19:44] LABS: INR 1.2; Partial Thromboplastin Time 57.2 Seconds (22.3-36.8); Prothrombin Time 15.6 Seconds (11.1-14.7)
[2025-11-11] MEDS: levoFLOXacin 750 MG/D5W 150 ML 750 MG/150 ML BAG 100 MG IVPB (19:54)
[2025-11-11] MEDS: metroNIDAZOLE 500 MG/ISO 100ML 500 MG/100 ML BAG 100 MG IVPB (19:54)
[2025-11-11] MEDS: DOXYCYCLINE HYCLATE 100 MG TABLET PO (20:15)
[2025-11-11 20:16] VITALS: BP 121/58; PULSE 95; RESP 18; TEMP 36.9; O2SAT 91
[2025-11-11 21:07] VITALS: BP 106/45; PULSE 92; RESP 20; TEMP 36.8; O2SAT 92
[2025-11-11 21:55] VITALS: BP 112/68; PULSE 78; RESP 22; TEMP 36.9; O2SAT 93
== END 2025-11-11 22:01 ==
PROVIDERS: Emergency Provider Emergency Medicine; PCP Family Medicine
DX: J44.1 Chronic obstructive pulmonary disease with (acute) exacerbation (principal); Z20.822 Contact with and (suspected) exposure to COVID-19; F03.90 Unspecified dementia, unspecified severity, without behavioral disturbance, psychotic disturbance, mood disturbance, and anxiety; I13.0 Hypertensive heart and chronic kidney disease with heart failure and stage 1 through stage 4 chronic kidney disease, or unspecified chronic kidney disease; N18.30 Chronic kidney disease, stage 3 unspecified; I50.9 Heart failure, unspecified; I25.5 Ischemic cardiomyopathy; E78.5 Hyperlipidemia, unspecified; J96.11 Chronic respiratory failure with hypoxia; Z99.81 Dependence on supplemental oxygen; D64.9 Anemia, unspecified; K21.9 Gastro-esophageal reflux disease without esophagitis; B44.1 Other pulmonary aspergillosis; G25.81 Restless legs syndrome; F41.9 Anxiety disorder, unspecified; F33.9 Major depressive disorder, recurrent, unspecified; Z95.5 Presence of coronary angioplasty implant and graft; Z87.891 Personal history of nicotine dependence; Z87.440 Personal history of urinary (tract) infections; Z86.0100 Personal history of colon polyps, unspecified; Z86.12 Personal history of poliomyelitis; Z90.49 Acquired absence of other specified parts of digestive tract; Z79.899 Other long term (current) drug therapy; Z79.82 Long term (current) use of aspirin; R94.31 Abnormal electrocardiogram [ECG] [EKG]; I45.10 Unspecified right bundle-branch block
CPT/HCPCS: 36415; 36600; 71045; 80053; 82805; 83605; 83735; 83880; 84484; 85018; 85025; 85055; 85610; 85730; 87040; 87637; 93005; 94640; 96365; 96366; 96367; 96368; 99284; A9270; J1836; J1956; J2919